=== PATIENT | male | born 1945 | race Caucasian/White ===

== ENCOUNTER 2023-01-31 20:13 | Emergency (ER) | payer OTHER, SELFPAY ==
[2023-01-31] VITALS (30 sets, daily range): BP systolic 110–135; BP diastolic 53–93; PULSE 68–95; RESP 14–30; TEMP 37.1; O2SAT 94–99
--- NOTE | 2023-01-31 20:04 | XR_ITS ---
The [address] [address] Patient Name: CLYDE MARINA MRN: [id number] date: 1945 Sex: M Assigned Patient Location: ER Current Patient Location: ED.MAIN Accession/Order Number: [id number] Exam Date: 01/31/2023 20:28 Report Date: 01/31/2023 20:50 At the request of: YESENIA WHITE Procedure: XR chest 1V EXAMINATION: XR chest 1V HISTORY: Altered mental status COMPARISON: None. TECHNIQUE: Portable chest FINDINGS: The lung parenchyma is free of consolidation or infiltrate. No pneumothorax or pleural effusion. The cardiac, mediastinal and hilar contours are normal. The visualized osseous structures exhibit no gross abnormality. XR/XR chest 1V IMPRESSION: No acute cardiopulmonary abnormality. Electronically authenticated by: MIS PAIZ Date: 01/31/2023 20:50
--- NOTE | 2023-01-31 20:04 | CT_ITS ---
The [address] [address] Patient Name: CLYDE MARINA MRN: [id number] date: 1945 Sex: M Assigned Patient Location: ER Current Patient Location: ER Accession/Order Number: [id number] Exam Date: 01/31/2023 20:28 Report Date: 01/31/2023 20:53 At the request of: YESENIA WHITE Procedure: CT head/brain wo con NONCONTRAST CT SCAN OF THE HEAD HISTORY: 69-year-old male with headache TECHNIQUE: Multiple axial images are taken from the level the vertex down to the base of the skull without the use of IV contrast. Images were then reconstructed in the sagittal and coronal planes. This exam was performed according to our departmental dose-optimization program which includes use of Automated Exposure Control, adjustment of the mA and/or kV according to patient size and/or use of iterative reconstruction technique. COMPARISON: None. FINDINGS: Brain Parenchyma: There is global, diffuse atrophy with periventricular decreased white matter attenuation. No intracranial mass. No intracranial hemorrhage. Posterior fossa: Normal. Midline shift: None Extra-axial fluid collection: None Ventricles: Normal. Mastoid air cells: Normal. Sinuses: Normal. Cranium: No depressed skull fracture. Soft tissues: Normal. Orbits: Normal. CT/CT head/brain wo con IMPRESSION: 1. Chronic small vessel ischemic change. 2. Otherwise, no CT evidence for acute pathology. 3. If patient continues to have symptoms or if there remains any further clinical concern, MRI may help better delineate. Electronically authenticated by: ALVIN CABRAL Date: 01/31/2023 20:53
--- NOTE | 2023-01-31 20:04 | ECG_ITS ---
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
[2023-01-31 20:22] LABS: Basophils Absolute Auto 0.1 10^3/uL (0.0-0.1); Basophils Percent Auto 0.6 % (0.2-2.0); Eosinophils Absolute Auto 0.8 10^3/uL (0.0-0.7); Eosinophils Percent Auto 8.3 % (0.9-7.0); Hematocrit 41.1 % (42.0-54.0); Hemoglobin 13.3 g/dL (14.0-18.0); Immature Granulocytes Abs Auto 0.07 10^3/uL (0.00-0.03); Immature Granulocytes Pct Auto 0.7 % (0.0-0.5); Lymphocytes Absolute Auto 1.4 10^3/uL (1.2-3.8); Lymphocytes Percent Auto 13.8 % (20.5-60.0); Mean Corpuscular HGB Conc 32.4 g/dL (29.9-35.2); Mean Corpuscular Hemoglobin 27.6 pg (25.9-34.0); Mean Corpuscular Volume 85.3 fL (80.0-94.0); Mean Platelet Volume 10.7 fL (9.5-13.5); Monocytes Absolute Auto 0.8 10^3/uL (0.3-0.8); Monocytes Percent Auto 7.6 % (1.7-12.0); Neutrophils Absolute Auto 6.8 10^3/uL (1.4-6.5); Platelet Count 235 10^3/uL (150-450); Red Blood Count 4.82 10^6/uL (4.70-6.10); Red Cell Distribution Width 14.6 % (11.0-15.0); White Blood Count 9.8 10^3/uL (4.0-11.0)
[2023-01-31 20:31] LABS: Anion Gap 15.5; BUN Creatinine Ratio 19.9; Calcium 8.9 mg/dL (8.5-10.1); Carbon Dioxide 28.5 mmol/L (21.0-32.0); Chloride 100 mmol/L (98-107); Estimated GFR (African America >60 (>=60); Estimated GFR (Non-African Ame 51 (>=60); Glucose 150 mg/dL (74-106); Sodium 140 mmol/L (136-145)
--- NOTE | 2023-01-31 20:52 | PC.NURSE ---
Pt arrived on 2 lpm oxygen via nasal cannula. Pt wears this all the time per shelter.
[2023-01-31 21:14] LABS: Bilirubin Urine NEGATIVE (NEGATIVE); Blood Urine NEGATIVE (NEGATIVE); Clarity Urine CLEAR (CLEAR); Color Urine LT. YELLOW (YELLOW); Glucose Urine UA NEGATIVE (NEGATIVE); Ketones Urine NEGATIVE (NEGATIVE); Leukocyte Esterase Urine NEGATIVE (NEGATIVE); Nitrite Urine NEGATIVE (NEGATIVE); Protein Urine NEGATIVE (NEG/TRACE); Urobilinogen Urine 0.2 EU/dL (0.2-1.0); pH Urine 5.5 (5.0-9.0)
[2023-01-31 21:26] LABS: Bacteria Urine NONE SEEN #/HPF (NONE SEEN); Crystals Seen? None Seen #/HPF (None Seen); Mucus Urine NONE SEEN (NONE SEEN); RBC Urine 0-2 #/HPF (0-2); Squamous Epithelial Cell Urine NONE SEEN #/LPF (NONE/RARE); WBC Urine 0-2 #/HPF (NONE SEEN)
[2023-01-31 21:28] LABS: Cast Seen? SEEN #/LPF (NONE SEEN)
--- NOTE | 2023-01-31 21:28 | PC.NURSE ---
[facility] [place] and spoke with Sierra regarding need for evaluation of pt. Face sheet faxed. [facility] to contact in next 30 mins.
[2023-01-31 21:29] LABS: Hyaline Casts Urine RARE
[2023-02-01] VITALS (105 sets, daily range): BP systolic 99–148; BP diastolic 51–85; PULSE 52–90; RESP 7–25; O2SAT 95–97
[2023-02-01 00:49] LABS: SARS-CoV-2 Ag NEGATIVE (NEGATIVE)
[2023-02-01] MEDS: ATORVASTATIN CALCIUM 10 MG TABLET PO (09:04)
[2023-02-01] MEDS: CITALOPRAM HYDROBROMIDE 20 MG TABLET PO (09:04)
[2023-02-01] MEDS: FUROSEMIDE 40 MG TABLET PO (09:04)
[2023-02-01] MEDS: METFORMIN HCL 500 MG TAB.ER.24H 1000 MG PO (09:04)
[2023-02-01] MEDS: ASPIRIN 81 MG TAB.CHEW PO (09:08)
[2023-02-01 14:59] LABS: SARS-CoV-2 NAA NOT DETECTED (NOT DETECTE)
== END 2023-02-01 18:46 ==
PROVIDERS: Emergency Medicine; Emergency Provider Emergency Medicine; PCP Family Medicine
DX: F91.9 Conduct disorder, unspecified (principal); F03.90 Unspecified dementia, unspecified severity, without behavioral disturbance, psychotic disturbance, mood disturbance, and anxiety; Z79.899 Other long term (current) drug therapy; Z79.82 Long term (current) use of aspirin; Z79.84 Long term (current) use of oral hypoglycemic drugs; Z20.822 Contact with and (suspected) exposure to COVID-19
CPT/HCPCS: 36415; 70450; 71045; 80048; 81001; 85025; 87635; 87811; 93005; 99283; U0003

== ENCOUNTER 2023-02-11 | Emergency (ER) | payer OTHER, SELFPAY ==
[2023-02-11 00:02] VITALS: BP 134/47; PULSE 61; RESP 18; TEMP 36.8; O2SAT 93
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
[2023-02-11 00:34] VITALS: O2SAT 94
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
== END 2023-02-11 02:50 ==
LOC: ER 01:20
PROVIDERS: Emergency Provider Emergency Medicine; PCP Family Medicine
DX: F03.911 Unspecified dementia, unspecified severity, with agitation (principal); Z79.82 Long term (current) use of aspirin; Z79.899 Other long term (current) drug therapy; Z79.84 Long term (current) use of oral hypoglycemic drugs
CPT/HCPCS: 99285

== ENCOUNTER 2023-05-20 08:00 | Outpatient (REF) | payer OTHER, SELFPAY ==
[2023-05-21 09:40] LABS: Bilirubin Urine NEGATIVE (NEGATIVE); Blood Urine NEGATIVE (NEGATIVE); Clarity Urine CLEAR (CLEAR); Color Urine LT. YELLOW (YELLOW); Glucose Urine UA NEGATIVE (NEGATIVE); Ketones Urine NEGATIVE (NEGATIVE); Leukocyte Esterase Urine NEGATIVE (NEGATIVE); Nitrite Urine NEGATIVE (NEGATIVE); Protein Urine NEGATIVE (NEG/TRACE); Specific Gravity Urine 1.015 (1.005-1.025); Urine Microscopic Indicated NO; Urobilinogen Urine 0.2 EU/dL (0.2-1.0); pH Urine 5.5 (5.0-9.0)
== END 2023-05-20 08:01 | disposition home or self-care (01) ==
LOC: LAB 08:00
PROVIDERS: PCP Family Medicine; Visit Provider Family Medicine
DX: R45.1 Restlessness and agitation (principal)
CPT/HCPCS: 81003

== ENCOUNTER 2023-05-21 00:47 | Outpatient (REF) | payer OTHER, SELFPAY ==
[2023-05-21 08:41] LABS: Basophils Absolute Auto 0.1 10^3/uL (0.0-0.1); Basophils Percent Auto 0.6 % (0.2-2.0); Eosinophils Absolute Auto 0.6 10^3/uL (0.0-0.7); Hemoglobin 12.3 g/dL (14.0-18.0); Immature Granulocytes Abs Auto 0.07 10^3/uL (0.00-0.03); Immature Granulocytes Pct Auto 0.8 % (0.0-0.5); Lymphocytes Absolute Auto 1.5 10^3/uL (1.2-3.8); Lymphocytes Percent Auto 16.5 % (20.5-60.0); Mean Corpuscular HGB Conc 31.5 g/dL (29.9-35.2); Mean Corpuscular Hemoglobin 28.3 pg (25.9-34.0); Mean Corpuscular Volume 89.9 fL (80.0-94.0); Mean Platelet Volume 11.8 fL (9.5-13.5); Monocytes Absolute Auto 0.8 10^3/uL (0.3-0.8); Monocytes Percent Auto 9.2 % (1.7-12.0); Neutrophils Absolute Auto 5.9 10^3/uL (1.4-6.5); Neutrophils Percent Auto 65.9 % (43.0-75.0); Platelet Count 235 10^3/uL (150-450); Red Blood Count 4.34 10^6/uL (4.70-6.10); Red Cell Distribution Width 14.2 % (11.0-15.0); White Blood Count 8.9 10^3/uL (4.0-11.0)
[2023-05-21 10:48] LABS: Alanine Aminotransferase 17 U/L (16-63); Albumin Globulin Ratio 0.7; Albumin Level 2.9 g/dL (3.4-5.0); Alkaline Phosphatase 50 U/L (46-116); Anion Gap 9.5; Aspartate Amino Transferase 19 U/L (15-37); BUN Creatinine Ratio 32.7; Bilirubin Total 0.4 mg/dL (0.2-1.0); Calcium 9.5 mg/dL (8.5-10.1); Carbon Dioxide 34.6 mmol/L (21.0-32.0); Chloride 103 mmol/L (98-107); Estimated GFR (African America >60 (>=60); Estimated GFR (Non-African Ame >60 (>=60); Globulin 4.2 g/dL; Glucose 137 mg/dL (74-106); Potassium 4.1 mmol/L (3.5-5.1); Sodium 143 mmol/L (136-145); Total Protein 7.1 g/dL (6.4-8.2)
== END 2023-05-21 00:48 | disposition home or self-care (01) ==
LOC: LAB 00:47
PROVIDERS: PCP Family Medicine; Visit Provider Family Medicine
DX: R45.1 Restlessness and agitation (principal)
CPT/HCPCS: 36415; 80053; 85025

== ENCOUNTER 2023-06-28 02:01 | Outpatient (REF) | payer OTHER, SELFPAY ==
--- OUTSIDE RECORDS SUMMARY | 2023-06-28 02:05 | XMS_ITS | CCD ---
Author Name Unknown Address [address] [facility] [address] [place] [address] Organization [facility] Care Team Providers Care Assisted Living Associate Name Role Phone Unavailable Primary Care Provider Unavailabl e PROVIDER, UNKNOWN Attending Unavailable PROVIDER, UNKNOWN Admitting Unavailable PROVIDER, UNKNOWN Attending Unavailable PROVIDER, UNKNOWN Admitting Unavailable Bienvenido Barroso Primary Care Physician [phone] Andrew Rodriguez Unavailable Unavailable Luis Gil Unavailable Unavailable Donta NOONAN Admitting Unavailable Donta NOONAN Attending Unavailable DO Radha Grace Attending Unavaila Donta Barrett Attending Unavailable Donta NOONAN Attending Unavailable Donta NOONAN Attending Unavailable Bienvenido Barroso Admitting Unavailable Bienvenido Barroso Attending Unavailable New Johnson Admitting Unavailable New Johnson Attending Unavailable Maycol CAGLE Admitting Unavailable Jiménez, Nair Consulting Unavailable Lizeth Cedeno Attending Unavailable Jiménez, Nair Consulting Unavailable Jiménez, Nair Consulting Unavailable Jiménez, Nair Consulting Unavailable Jiménez, Nair Consulting Unavailable Jiménez, Nair Consulting Unavailable Jiménez, Nair Consulting Unavailable Jiménez, Nair Consulting Unavailable Jiménez, Nair Consulting Unavailable Jiménez, Nair Consulting Unavailable Maycol CAGLE Admitting Unavailable Maycol CAGLE Attending Unavailable Ganesh Minaya Admitting Unavailable Ganesh Minaya Attending Unavailable Robin Bryant Attending Unavailab Robin Granger Admitting Unavailab le NON STAFF Primary Care Unavailable Medications Current Medications Medication Drug Class(es) Dates Sig (Normalized) Sig (Original) acetaminophen 325 mg oral tablet (8 sources) Start: 06-16-2014 take 2 tablets by mouth every six hours as needed for pain acetaminophen 325 mg Tab 650 mg = 2 tab(s), Oral, q6hr, PRN Pain, Refills(s) 0 Start Date: 06/16/14 Status: Ordered [id number] 200 actuat albuterol 0.09 mg/actuat metered dose inhaler (4 sources) beta2-Adrenergic Agonist Start: 04-27-2021 take 2 puff(s) by inhalation four times daily for wheezing Pro-Air HFA CFC free 90 mcg/inh MDI 2 puff(s), Inhalation, QID for wheezing, 8.5 gram, Refill(s) 0, [facility] [address], 167.6, cm, 04/24/21 18:14:00 EST, Height/Length Dosing, 106.9, kg, 04/24/21 13:15:00 EST, Weight Dosing Start Date: 04/27/21 Status: Ordered ALPRAZolam 0.5 mg oral tablet (1 source) Benzodiazepine Start: 12-20-2022 take 1 tablet by mouth once daily as needed for anxiety, then take 1 tablet by mouth once daily as needed for anxiety alprazolam 0.5 mg Tab 0.5 mg = 1 tab(s), Oral, Daily, PRN for anxiety, one nightly for 10 days , F41.9, # 10 tab(s), Refills(s) 0 Start Date: 12/20/22 Status: Ordered amoxicillin 875 mg / clavulanate 125 mg oral tablet (2 sources) Penicillin-class Antibacterial Start: 12-20-2022 End: 12-27-2022 take 1 tablet by mouth every twelve hours Augmentin 875 mg oral tablet = 1 tab(s), Oral, q12hr, X 7 day(s), # 14 tab(s), Refills(s) 0 Start Date: 12/20/22 Stop Date: 12/27/22 Status: Ordered aspirin 81 mg delayed release oral tablet (8 sources) Platelet Aggregation Inhibitor, Nonsteroidal Anti-inflammatory Drug Start: 12-02-2022 take 1 tablet by mouth once daily aspirin 81 mg Oral EC Tab 81 mg = 1 tab(s), Oral, Daily, # 30 tab(s), Refills(s) 0, Pharmacy: [facility] [address], 167, cm, 11/28/22 17:20:00 EDT, Height/Length Dosing, 99.8, kg, 11/28/22 17:20:00 EDT, Weight Dosing Start Date: 12/02/22 Status: Ordered Start: 06-13-2013 take 325 mg by mouth once abram y aspirin 325 mg, Oral, Daily, Refills(s) 0, Prophylaxis Start Date: 06/13/13 Status: Ordered cetirizine hydrochloride 10 mg oral capsule (3 sources) Histamine-1 Receptor Antagonist Start: 12-29-2022 take 1 capsule by mouth once daily as needed cetirizine 10 mg oral capsule 10 mg = 1 cap(s), Oral, Daily, PRN for allergy symptoms, # 40 cap(s), Refills(s) 0 Start Date: 12/29/22 Status: Ordered cholecalciferol 0.05 mg oral tablet (6 sources) Vitamin D Start: 01-15-2023 take 1 tablet by mouth once daily cholecalciferol 2000 intl units oral tablet (Vitamin D3) 50 mcg = 1 tab(s), Oral, Daily, # 90 tab(s), Refills(s) 4, Pharmacy: [facility], 160, cm, 12/18/22 0:04:00 EDT, Height/Length Dosing, 94, kg, 12/18/22 0:04:00 EDT, Weight Dosing Start Date: 01/15/23 Status: Ordered Start: 12-03-2022 take 1 tablet by ruperto th once daily cholecalciferol 2000 intl units oral tablet (Vitamin D3) 50 mcg = 1 tab(s), Oral, Daily, Refills(s) 0 Start Date: 12/03/22 Status: Ordered citalopram 20 mg oral tablet (4 sources) Serotonin Reuptake Inhibitor Start: 01-15-2023 take 1 tablet by mouth once daily citalopram 20 mg Tab 20 mg = 1 tab(s), Oral, Daily, # 90 tab(s), Refills(s) 4, Pharmacy: [facility], 160, cm, 12/18/22 0:04:00 EDT, Height/Length Dosing, 94, kg, 12/18/22 0:04:00 EDT, Weight Dosing Start Date: 01/15/23 Status: Ordered Start: 12-22-2022 take 1 tablet by ruperto th once daily citalopram 20 mg Tab 20 mg = 1 tab(s), Oral, Daily, Refills(s) 0 Start Date: 12/22/22 Status: Ordered furosemide 40 mg oral tablet (8 sources) Loop Diuretic Start: 01-15-2023 take 1 tablet by mouth once daily furosemide 40 mg Tab 40 mg = 1 tab(s), Oral, Daily, # 90 tab(s), Refills(s) 1, Pharmacy: [facility], 160, cm, 12/18/22 0:04:00 EDT, Height/Length Dosing, 94, kg, 12/18/22 0:04:00 EDT, Weight Dosing Start Date: 01/15/23 Status: Ordered Start: 12-02-2022 take 1 tablet by ruperto once daily furosemide 40 mg Tab 40 mg = 1 tab(s), Oral, Daily, # 30 tab(s), Refills(s) 0, Pharmacy: [facility] [address], 167, cm, 11/28/22 17:20:00 EDT, Height/Length Dosing, 99.8, kg, 11/28/22 17:20:00 EDT, Weight Dosing Start Date: 12/02/22 Status: Ordered Start: 06-13-2013 take 1 tablet by ruperto once daily furosemide 40 mg Tab 40 mg = 1 tab(s), Oral, Daily, Refills(s) 0, diuretic/water pill Start Date: 06/13/13 Status: Ordered glimepiride 1 mg oral tablet (7 sources) Sulfonylurea Start: 09-28-2022 take 1 tablet by mouth once daily at mealtime glimepiride 1 mg Tab 1 mg = 1 tab(s), Oral, Daily, with the first meal of the day, # 30 tab(s), Refills(s) 0, Pharmacy: [facility] [address], 167, cm, 09/26/22 10:09:00 EDT, Height/Length Dosing, 100.4, kg, 09/26/22 10:09:00 EDT, Weight Dosing Start Date: 09/28/22 Status: Ordered 12 hr guaiFENesin 600 mg extended release oral tablet (2 sources) Start: 12-20-2022 End: 08-04-2023 take 2 tablets by mouth twice daily Mucinex 600 mg Tab-ER 1,200 mg = 2 tab(s), Oral, BID, X 3 day(s), Refills(s) 0 Start Date: 12/20/22 Stop Date: 12/25/22 Status: Ordered lovastatin 40 mg oral tablet (8 sources) HMG-CoA Reductase Inhibitor Start: 04-30-2013 take 1 tablet by mouth once daily at bedtime lovastatin 40 mg Tab 40 mg = 1 tab(s), Oral, Once a day (at bedtime), # 30 tab(s), Refills(s) 0, High cholesterol Start Date: 04/30/13 Status: Ordered metFORMIN hydrochloride 1000 mg oral tablet (8 sources) Biguanide Start: 04-30-2013 take 1 tablet by mouth twice daily metformin 1000 mg Tab 1,000 mg = 1 tab(s), Oral, BID, # 60 tab(s), Refills(s) 0, Blood glucose Start Date: 04/30/13 Status: Ordered Start: 04-30-2013 take 0.5 tablet by m outh twice daily metformin 1000 mg Tab 0.5 tab, Oral, BID, # 60 tab(s), Refills(s) 0, Blood glucose Start Date: 04/30/13 Status: Ordered 24 hr metoprolol succinate 50 mg extended release oral tablet (1 source) beta-Adrenergic Varsha Start: 06-13-2013 take 1 tablet by mouth once daily metoprolol 50 mg ER Tab 50 mg = 1 tab(s), Oral, Daily, Refills(s) 0, High blood pressure Start Date: 06/13/13 Status: Ordered QUEtiapine 25 mg oral tablet (8 sources) Atypical Antipsychotic Start: 01-15-2023 quetiap ine 25 mg Tab See Instructions, 25 mg qAM- 75 mg q1600 - 75mg qHS, # 210 tab(s), Refills(s) 1, Pharmacy: [facility] [address], 160, cm, 12/18/22 0:04:00 EDT, Height/Length Dosing, 94, kg, 12/18/22 0:04:00 EDT, Weight Dosing Start Date: 01/15/23 Status: Ordered Start: 12-14-2022 quetiapine 25 mg Tab See Instructions, 25 mg qAM- 75 mg q1600 - 75mg qHS, Refills(s) 0 Start Date: 12/14/22 Status: Ordered Start: 12-02-2022 take 1 tablet by ruperto th at bedtime quetiapine 50 mg oral tablet 50 mg = 1 tab(s), Oral, Bedtime, # 30 tab(s), Refills(s) 0, Pharmacy: [facility] [address], 167, cm, 11/28/22 17:20:00 EDT, Height/Length Dosing, 99.8, kg, 11/28/22 17:20:00 EDT, Weight Dosing Start Date: 12/02/22 Status: Ordered Start: 05-31-2021 take 1 tablet by ruperto th once daily quetiapine 50 mg oral tablet 50 mg = 1 tab(s), Oral, Daily, # 30 tab(s), Refills(s) 0 Start Date: 05/31/21 Status: Ordered spironolactone 25 mg oral tablet (8 sources) Aldosterone Antagonist Start: 01-15-2023 take 1 tablet by mouth once daily spironolactone 25 mg Tab 25 mg = 1 tab(s), Oral, Daily, # 90 tab(s), Refills(s) 1, Pharmacy: [facility], 160, cm, 12/18/22 0:04:00 EDT, Height/Length Dosing, 94, kg, 12/18/22 0:04:00 EDT, Weight Dosing Start Date: 01/15/23 Status: Ordered Start: 06-16-2014 take 1 tablet by ruperto th once daily spironolactone 50 mg Tab 50 mg = 1 tab(s), Oral, Daily, Refills(s) 0, Edema Start Date: 06/16/14 Status: Ordered Completed/Discontinued Medications Medication Drug Class(es) Dates Sig (Normalized) Sig (Original) ergocalciferol 1.25 mg oral capsule (3 sources) Provitamin D2 Compound Start: 12-02-2022 End: 01-28-2023 ergocalciferol 50,000 intl units Cap 50,000 International_Unit = 1 cap(s), Oral, q7day, X 8 week(s), # 8 cap(s), Refills(s) 0, Pharmacy: [facility], 167, cm, 11/28/22 17:20:00 EDT, Height/Length Dosing, 99.8, kg, 11/28/22 17:20:00 EDT, Weight Dosing Start Date: 12/02/22 Stop Date: 01/28/23 Status: Ordered Insulin Lispro (3 sources) Insulin Analog Start: 12-19-2022 End: 12-19-2022 Insulin Lispro Sliding Scale 0-10 Units, Injection-Insulin, SubCutaneous, Start date 12/19/22 16:30:00 EDT Start Date: 12/19/22 Stop Date: 12/19/22 Status: Completed Start: 12-19-2022 End: 12-19-2022 Insulin Lispro Sliding Scale 0-10 Units, Injection-Insulin, SubCutaneous, Start date 12/19/22 11:30:00 EDT Start Date: 12/19/22 Stop Date: 12/19/22 Status: Completed Start: 12-19-2022 End: 12-19-2022 Insulin Lispro Sliding Scale 0-10 Units, Injection-Insulin, SubCutaneous, Start date 12/19/22 7:30:00 EDT Start Date: 12/19/22 Stop Date: 12/19/22 Status: Completed tamsulosin hydrochloride 0.4 mg oral capsule (9 sources) alpha-Adrenergic Varsha Start: 01-24-2023 End: 01-24-2023 tamsulosin 0.4 mg Cap 0.4 mg = 1 cap(s), Cap, Oral, Start date 01/24/23 9:00:00 EDT, 01/21/23 20:27:00 EDT Start Date: 01/24/23 Stop Date: 01/24/23 Status: Completed Start: 06-16-2014 take 1 capsule by [facility] twice daily tamsulosin 0.4 mg Cap 0.4 mg = 1 cap(s), Oral, BID, Refills(s) 0, Urinary discomfort Start Date: 06/16/14 Status: Ordered Problems Active Problems Problem Classification Problem Date Documented Da te Episodic/Chronic Abdominal pain (1 source) Abdominal pain; Translations: [Unspecified abdominal pain] Onset: 11-28-2022 Episodic Acute and unspecified renal failure (1 source) Acute renal failure syndrome; Translations: [Acute kidney failure, unspecified] Onset: 12-18-2022 Episodic Acute myocardial infarction (8 sources) Myocardial infarction 03-29-2016 Chronic Anxiety disorders (5 sources) Anxiety 12-11-2022 Chronic Cardiac dysrhythmias (1 source) Sinus bradycardia; Translations: [Bradycardia, unspecified] Onset: 11-29-2022 Episodic Chronic kidney disease (1 source) Chronic kidney disease; Translations: [Chronic kidney disease, unspecified] Onset: 12-18-2022 Chronic Chronic obstructive pulmonary disease and bronchiectasis (13 sources) Chronic obstructive lung disease; Translations: [Acute exacerbation of chronic obstructive airways disease] Onset: 11-29-2022 04-30-2013 Chronic Congestive heart failure; nonhypertensive (10 sources) Congestive heart failure; Translations: [Acute on chronic diastolic heart failure] Onset: 11-29-2022 04-30-2013 Chronic Coronary atherosclerosis and other heart disease (12 sources) Coronary atherosclerosis; Translations: [Atherosclerotic heart disease of huslia coronary artery without angina pectoris] Onset: 11-29-2022 Chronic Deficiency and other anemia (1 source) Anemia; Translations: [Anemia, unspecified] Onset: 11-29-2022 Episodic Delirium, dementia, and amnestic and other cognitive disorders (20 sources) Dementia; Translations: [Unspecified dementia without behavioral disturbance] Onset: 11-29-2022 Chronic Diabetes mellitus without complication (14 sources) Diabetes mellitus; Translations: [Type 2 diabetes mellitus without complication] Onset: 11-29-2022 04-30-2013 Chronic Disorders of lipid metabolism (2 sources) Hyperlipidemia; Translations: [Hyperlipidemia, unspecified] Onset: 11-29-2022 Chronic Diverticulosis and diverticulitis (8 sources) Diverticulitis 08-04-2013 Chronic E Codes: Fall (2 sources) Fall; Translations: [Unspecified fall, initial encounter] Onset: 12-18-2022 Episodic Essential hypertension (10 sources) Essential hypertension; Translations: [Essential (primary) hypertension] Onset: 11-29-2022 Chronic Hyperplasia of prostate (10 sources) Benign prostatic hypertrophy without outflow obstruction; Translations: [Benign prostatic hyperplasia without lower urinary tract symptoms] Onset: 11-29-2022 Chronic Intestinal obstruction without hernia (8 sources) Intestinal obstruction 08-04-2013 Episodic Malaise and fatigue (9 sources) Asthenia; Translations: [Weakness] Onset: 11-28-2022 Episodic Nutritional deficiencies (10 sources) Vitamin D deficiency; Translations: [Vitamin D deficiency, unspecified] Onset: 12-02-2022 12-02-2022 Chronic Other connective tissue disease (6 sources) Recurrent falls ; Translations: [Repeated falls] Onset: 12-22-2022 Episodic Other diseases of kidney and ureters (7 sources) Urinary tract obstruction; Translations: [Other obstructive and reflux uropathy] Onset: 12-02-2022 Episodic Other endocrine disorders (1 source) Hypoglycemia, unspecified; Translations: [Hypoglycemia, unspecified] Onset: 09-26-2022 Chronic Other gastrointestinal disorders (8 sources) Constipation 04-30-2013 Episodic Other liver diseases (1 source) Enzyme level - finding; Translations: [Abnormal levels of other serum enzymes] Onset: 11-29-2022 Episodic Other nervous system disorders (1 source) Disorder of brain 06-02-2021 Chronic Other nutritional; endocrine; and metabolic disorders (7 sources) Body mass index 30+ - obesity 12-02-2022 Chronic Other nutritional; endocrine; and metabolic disorders (8 sources) Morbid obesity; Translations: [Morbid (severe) obesity due to excess calories] Onset: 12-02-2022 12-02-2022 Chronic Other nutritional; endocrine; and metabolic disorders (1 source) Obese class II; Translations: [Body mass index (BMI) 35.0-35.9, adult] Onset: 12-02-2022 Chronic Other nutritional; endocrine; and metabolic disorders (1 source) Obesity; Translations: [Obesity, unspecified] Onset: 12-18-2022 Chronic Pulmonary heart disease (12 sources) Pulmonary hypertension; Translations: [Pulmonary hypertension, unspecified] Onset: 11-29-2022 Chronic Comment on above: RVSP 35 mm Hg Echo Residual codes; unclassified (1 source) Sleep apnea 03-29-2016 Chronic Residual codes; unclassified (12 sources) Obstructive sleep apnea syndrome; Translations: [Obstructive sleep apnea (adult) (pediatric)] Onset: 11-29-2022 Chronic Residual codes; unclassified (1 source) Disorientation, unspecified; Translations: [Disorientation, unspecified] Onset: 09-26-2022 Episodic Residual codes; unclassified (2 sources) Procedure carried out on subject; Translations: [Encounter for prophylactic measures, unspecified] Onset: 11-29-2022 Episodic Residual codes; unclassified (1 source) Disorientated; Translations: [Disorientation, unspecified] Onset: 12-03-2022 Episodic Residual codes; unclassified (6 sources) Delirium 12-03-2022 Episodic Urinary tract infections (1 source) Urinary tract infectious disease 06-02-2021 Episodic Past or Other Problems Problem Classification Problem Date Documented Da te Episodic/Chronic Pneumonia (except that caused by tuberculosis or sexually transmitted disease) (7 sources) Pneumonia; Translations: [Pneumonia, unspecified organism] Onset: 12-18-2022 Episodic Respiratory failure; insufficiency; arrest (adult) (3 sources) Acute respiratory failure; Translations: [Acute respiratory failure with hypoxia] Onset: 11-29-2022 Episodic Results Test Name Value Interpretation Reference Range Facility Insurance Correspondenceon 1 05-25-2022 Insurance Correspondence [id number]# 1.00TIFF [facility] Coding Queryon 02-17-2023 Coding Query [facility] Discharge Instructionson Discharge Instructions [id number]# 1.00CD:127 [facility] Transfer Documentson 023 Transfer Documents [id number]# 1.00CD:127 [facility] Discharge Note-Nursingon Discharge Note-Nursing Normal [facility] Interdisciplinary Note - Santosh e Manageron 01-23-2023 Interdisciplinary Note - Software Engineer Kernel [facility] Comment on above: Result Comment: Elec tronically Signed By: Norma Garcia RN\.br\Date and Time Signed: 01/23/23 16:29 EDT Progress Note-Physicianon Progress Note-Physician Normal [facility] Comment on above: Result Comment: Elec tronically Signed By: New Johnson DO\.br\Date and Time Signed: 01/23/23 09:50 EDT Auto Diffon 01-22-2023 Basophils/100 WBC (Bld) 0.7 % Normal 0.0-2.0 [facility] Comment on above: Order Comment: Order Added by Discern Expert. Performed By: #### 2 [id number], [id number], [id number], [id number] ####[address] [address] Basophils/Leukocytes Auto (Bld) [Pure # fraction] 0.1 E9/L Normal 0.0-0.2 [facility] Comment on above: Order Comment: Order Added by Discern Expert. Performed By: #### 2 [id number], [id number], [id number], [id number] ####[address] [address] Eosinophils/100 WBC (Bld) 9.3 % High 0.0-8.0 [facility] Comment on above: Order Comment: Order Added by Bethany Expert. Performed By: #### 2 979713, [id number], 2521837, 7996350 ####[address] [address] Eosinophils/Leukocytes Auto (Bld) [Pure # fraction] 0.8 E9/L High 0.0-0.5 [facility] Comment on above: Order Comment: Order Added by Bethany Expert. Performed By: #### 2 194434, [id number], [id number], [id number] ####[address] [address] Lymphocytes/100 WBC (Bld) 17.2 % Normal 14.0-50.0 [facility] Comment on above: Order Comment: Order Added by Bethany Expert. Performed By: #### 2 031466, [id number], 7251174, [id number] ####[address] [address] Lymphocytes/Leukocytes Auto (Bld) [Pure # fraction] 1.4 E9/L Normal 1.0-4.0 [facility] Comment on above: Order Comment: Order Added by Bethany Expert. Performed By: #### 2 127173, [id number], 3331148, 3511530 ####[address] [address] Monocytes/100 WBC (Bld) 10.0 % Normal 4.0-14.0 [facility] Comment on above: Order Comment: Order Added by Discern Expert. Performed By: #### 2 324449, [id number], 1684875, 1946966 ####[address] [address] Monocytes/Leukocytes Auto (Bld) [Pure # fraction] 0.8 E9/L Normal 0.2-1.0 [facility] Comment on above: Order Comment: Order Added by Discern Expert. Performed By: #### 2 496601, [id number], 8399107, 0868638 ####[address] [address] Neutrophils/100 WBC (Bld) 62.8 % Normal 36.0-75.0 [facility] Comment on above: Order Comment: Order Added by Discern Expert. Performed By: #### 2 065993, [id number], 3976224, 3764236 ####[address] [address] Neutrophils/Leukocytes Auto (Bld) [Pure # fraction] 5.2 E9/L Normal 2.0-7.5 [facility] Comment on above: Order Comment: Order Added by Discern Expert. Performed By: #### 2 565614, 16730906, 4106180, 8397262 ####[address] [address] CBC w/ Auto Diffon 3 Erythrocyte distribution width (RBC) [Ratio] 15.2 % High 10.9-14.2 [facility] Comment on above: Performed By: #### 2 525057, [id number], 2641616, 5760505 ####[address] [address] Hematocrit (Bld) [Volume fraction] 43.1 % Normal 37.7-49.0 [facility] Comment on above: Performed By: #### 2 721836, 17639451, 5353519, 0597726 ####[facility] [address] [place] [address] Hemoglobin (Bld) [Mass/Vol] 14.6 g/dL Normal 13.5-17.5 [facility] Comment on above: Performed By: #### 2 002675, 48822911, 7708664, 5331426 ####[facility] [address] [place] [address] MCH (RBC) [Entitic mass] 28.1 pg Normal 27.0-34.0 [facility] Comment on above: Performed By: #### 2 474067, 37683822, 2006401, 9899019 ####[address] [address] MCHC (RBC) [Mass/Vol] 33.8 g/dL Normal 31.4-36.0 [facility] Comment on above: Performed By: #### 2 217673, 39003798, 3127201, 9005075 ####[facility] [address] [place] [address] MCV (RBC) [Entitic vol] 83.2 fL Normal 80.0-100.0 [facility] Comment on above: Performed By: #### 2 453376, 81628996, 1131925, 3233709 ####[address] [address] Platelet mean volume (Bld) [Entitic vol] 8.6 fL Normal 6.4-10.8 [facility] Comment on above: Performed By: #### 2 157898, 91736065, 8730553, 0180518 ####[address] [address] Platelets (Bld) [#/Vol] 221.0 E9/L Normal 150.0-500.0 [facility] Comment on above: Performed By: #### 2 866608, 35151870, 3533762, 5483692 ####[address] [address] RBC (Bld) [#/Vol] 5.2 E12/L Normal 4.3-5.9 [facility] Comment on above: Performed By: #### 2 113809, 77427752, 7652923, 6989934 ####[facility] [address] [place] [address] WBC corrected for nucl RBC Auto (Bld) [#/Vol] 8.3 E9/L Normal 4.0-11.0 [facility] Comment on above: Performed By: #### 2 185579, 53699298, 1714939, 3039944 ####[facility] [address] [place] [address] CHEMISTRYOrdered By: Lab ROP User on 01-22-2023 Glucose [Mass/Vol] 121 mg/dL High 55 - 99 mg/dL [facility] POC Subsection Comment on above: Result Comment: Gareth guerrero RN/ POC Device SN [id number] Invalid Interpretation Code [facility] POC Subsection POC User ID [id number] Invalid Interpretation Code [facility] POC Subsection POC Username LATONIA MALHOTRA Invalid Interpretation Code [facility] POC Subsection CHEMISTRYOrdered By: SYSTEM SYSTEM on 01-22-2023 Albumin [Mass/Vol] 3.7 g/dL Normal 3.3 - 5.0 gm/dL [facility] Albumin/Globulin [Mass ratio] 1.0 {ratio} Low 1.1 - 2.2 [facility] Remisol ALP [Catalytic activity/Vol] 47 [iU]/d Normal 21 - 98 Int._Unit/L [facility] Remisol ALT No additional P-5'-P [Catalytic activity/Vol] 21 [iU]/d Normal 6 - 46 Int._Unit/L [facility] Remisol Anion gap [Moles/Vol] 15 mmol/L Normal 6 - 16 mEq/L [facility] Remisol AST [Catalytic activity/Vol] 21 [iU]/d Normal 5 - 43 Int._Unit/L [facility] Remisol Bilirubin [Mass/Vol] 0.8 mg/dL Normal 0.0 - 1 .1 mg/dL [facility] Remisol Calcium [Mass/Vol] 9.6 mg/dL Normal 8.9 - 11. 1 mg/dL [facility] Chloride [Moles/Vol] 97 mmol/L Low 101 - 1 11 mmol/L [facility] CO2 [Moles/Vol] 30 mmol/L Normal 21 - 31 mmol/L [facility] Creatinine [Mass/Vol] 1.3 mg/dL Normal 0.5 - 1.3 mg/dL [facility] GFR/1.73 sq M.predicted among non-blacks MDRD (S/P/Bld) [Vol rate/Area] 56 mL/min/1.73 m2 Low >=59mL/min/ 1.73 m2 [facility] Chem S Globulin (S) [Mass/Vol] 3.6 g/dL Normal 1.4 - 4.0 gm/dL [facility] Glucose [Mass/Vol] 124 mg/dL Normal 55 - 199 mg/dL [facility] Potassium [Moles/Vol] 4.0 mmol/L Normal 3.5 - 5.3 mmol/L [facility] Protein [Mass/Vol] 7.3 g/dL Normal 6.0 - 7.8 gm/dL [facility] Sodium [Moles/Vol] 138 mmol/L Normal 135 - 145 mmol/L [facility] Urea nitrogen [Mass/Vol] 42 mg/dL High 5 - 21 mg/dL [facility] Urea nitrogen/Creatinine [Mass ratio] 32 mg/mg High 10 - 20 [facility] Remisol CMPon 01-22-2023 Albumin [Mass/Vol] 3.7 g/dL Normal 3.3-5.0 [facility] Comment on above: Performed By: #### 2 [id number], [id number], 9501935, [id number] ####[facility] [address] [place] [address] Albumin/Globulin (S) [Mass conc ratio] 1.0 Low 1.1-2.2 [facility] [facility] Comment on above: Performed By: #### 2 040208, 24098805, 1901083, 4515447 ####[facility] [address] [place] [address] ALP [Catalytic activity/Vol] 47 Int._Unit/L Normal 21-98 [facility] Comment on above: Performed By: #### 2 785638, 69566734, 7547763, 7518975 ####[facility] [address] [place] [address] ALT No additional P-5'-P [Catalytic activity/Vol] 21 Int._Unit/L Normal 6-46 [facility] Comment on above: Performed By: #### 2 098119, 80368755, 5538129, 6494638 ####[facility] [address] [place] [address] Anion gap [Moles/Vol] 15 mmol/L Normal 6-16 [facility] Comment on above: Performed By: #### 2 906492, 87218574, 2296303, 5364067 ####[facility] [address] [place] [address] AST [Catalytic activity/Vol] 21 Int._Unit/L Normal 5-43 [facility] Comment on above: Performed By: #### 2 972373, 05491492, 2534173, 5326618 ####[facility] [address] [place] [address] Bilirubin [Mass/Vol] 0.8 mg/dL Normal 0.0-1.1 [facility] Comment on above: Performed By: #### 2 454815, 62642210, 3126492, 5090323 ####[facility] [address] [place] [facility] [place] [address] Calcium [Mass/Vol] 9.6 mg/dL Normal 8.9-11.1 [facility] Comment on above: Performed By: #### 2 965531, 66639222, 1570994, 7535456 ####[facility] [address] [place] [address] Chloride [Moles/Vol] 97 mmol/L Low 101-111 [facility] Comment on above: Performed By: #### 2 890846, 09331866, 3162041, 8092190 ####[facility] [address] [place] [address] CO2 [Moles/Vol] 30 mmol/L Normal 21-31 [facility] Comment on above: Performed By: #### 2 008022, 07629280, 6538563, 8310074 ####[facility] [address] [place] [address] Creatinine [Mass/Vol] 1.3 mg/dL Normal 0.5-1.3 [facility] Comment on above: Performed By: #### 2 270324, 56050350, 6661542, 6705984 ####[facility] [address] [place] [address] Globulin (S) [Mass/Vol] 3.6 g/dL Normal 1.4-4.0 [facility] Comment on above: Performed By: #### 2 700791, 88689291, 7135343, 2954557 ####[facility] [address] [place] [address] Glucose [Mass/Vol] 124 mg/dL Normal 55-199 [facility] Comment on above: Result Comment: If t his glucose result represents a fasting glucose, interpretation should refer to the following reference range: 55-99 mg/dL Performed By: #### 2 001000, 10127176, 4767004, 3548965 ####[facility] [address] [place] [address] Potassium [Moles/Vol] 4.0 mmol/L Normal 3.5-5.3 [facility] Comment on above: Performed By: #### 2 550472, 73874285, 2582908, 6713736 ####[facility] [address] [place] [address] Protein [Mass/Vol] 7.3 g/dL Normal 6.0-7.8 [facility] Comment on above: Performed By: #### 2 997219, 41146506, 5510575, 3289154 ####[facility] [address] [place] [address] Sodium [Moles/Vol] 138 mmol/L Normal 135-145 [facility] Comment on above: Performed By: #### 2 079864, 14402141, 6780030, 9970459 ####[facility] [address] [place] [address] Urea nitrogen [Mass/Vol] 42 mg/dL High 5-21 [facility] Comment on above: Performed By: #### 2 493802, 94433167, 4596783, 2714558 ####[facility] [address] [place] [address] Urea nitrogen/Creatinine [Mass ratio] 32 No Units High 10-20 [facility] Comment on above: Performed By: #### 2 118469, 01367490, 6404177, 7138546 ####[facility] [address] [place] [address] Capillary Glucose POCon Glucose [Mass/Vol] 121 mg/dL High 55-99 [facility] Comment on above: Result Comment: Gareth guerrero RN/ Performed By: #### 2 [id number] ####[facility] [address] [place] [address] Coding Queryon 01-22-2023 Coding Query Normal [facility] HEMATOLOGYOrdered By: SYSTEM SYSTEM on 01-22-2023 Basophils/100 WBC (Bld) 0.7 % Normal 0.0 - 2.0 % [facility] HemeAutoSS Basophils/Leukocytes Auto (Bld) [Pure # fraction] 0.1 E9/L Normal 0.0 - 0.2 E9/L [facility] HemeAutoSS Eosinophils/100 WBC (Bld) 9.3 % High 0.0 - 8.0 % [facility] HemeAutoSS Eosinophils/Leukocytes Auto (Bld) [Pure # fraction] 0.8 E9/L High 0.0 - 0.5 E9/L [facility] HemeAutoSS Lymphocytes/100 WBC (Bld) 17.2 % Normal 14.0 - 50.0 % [facility] HemeAutoSS Lymphocytes/Leukocytes Auto (Bld) [Pure # fraction] 1.4 E9/L Normal 1.0 - 4.0 E9/L [facility] HemeAutoSS Monocytes/100 WBC (Bld) 10.0 % Normal 4.0 - 14.0 % [facility] HemeAutoSS Monocytes/Leukocytes Auto (Bld) [Pure # fraction] 0.8 E9/L Normal 0.2 - 1.0 E9/L [facility]eAutoSS Neutrophils/100 WBC (Bld) 62.8 % Normal 36.0 - 75.0 % [facility] HemeAutoSS Neutrophils/Leukocytes Auto (Bld) [Pure # fraction] 5.2 E9/L Normal 2.0 - 7.5 E9/L [facility]eAutoSS HEMATOLOGYOrdered By: Amy hwang on 01-22-2023 Erythrocyte distribution width (RBC) [Ratio] 15.2 % High 10.9 - 14.2 % [facility]eAuto[facility] Hematocrit (Bld) [Volume fraction] 43.1 % Normal 37.7 - 49.0 % [facility] HemeAutoSS Hemoglobin (Bld) [Mass/Vol] 14.6 g/dL Normal 13.5 - 17.5 gm/dL [facility] HemeAutoSS MCH (RBC) [Entitic mass] 28.1 pg Normal 27. 0 - 34.0 pg [facility] HemeAutoSS MCHC (RBC) [Mass/Vol] 33.8 g/dL Normal 31.4 - 36.0 gm/dL [facility] HemeAutoSS MCV (RBC) [Entitic vol] 83.2 fL Normal 80.0 - 100.0 fL [facility] HemeAutoSS Platelet mean volume (Bld) [Entitic vol] 8.6 fL Normal 6.4 - 10.8 fL [facility] HemeAutoSS Platelets (Bld) [#/Vol] 221.0 E9/L Normal 150. 0 - 500.0 E9/L [facility] HemeAutoSS RBC (Bld) [#/Vol] 5.2 E12/L Normal 4.3 - 5.9 E12/L [facility] HemeAutoSS WBC corrected for nucl RBC Auto (Bld) [#/Vol] 8.3 E9/L Normal 4.0 - 11.0 E9/L [facility] HemeAutoSS Insurance Correspondence Off iceon 01-22-2023 Insurance Correspondence Office [id number]#1 .[id number]:127 Normal [facility] Interdisciplinary Note - Santosh e Manageron 01-22-2023 Interdisciplinary Note - Software Engineer Kernel Normal [facility] Comment on above: Result Comment: Elec tronically Signed By: Natalie Grant\.br\Date and Time Signed: 01/22/23 11:13 EDT Interdisciplinary Note - Murphy n 01-22-2023 Interdisciplinary Note - OT Normal [facility] Interdisciplinary Note - PTo n 01-22-2023 Interdisciplinary Note - PT Normal [facility] Message from Medicareon Message from Medicare [id number]#1 .00CD:127 Normal [facility] Progress Note-Physicianon Progress Note-Physician Normal F [facility] Comment on above: Result Comment: Elec tronically Signed By: New Johnson DO.br\Date and Time Signed: 01/22/23 14:15 EDT eGFRon 01-22-2023 GFR/1.73 sq M.predicted among non-blacks MDRD (S/P/Bld) [Vol rate/Area] 56 mL/min/1.73 m2 Low >=59 [facility] Comment on above: Order Comment: Order added by Discern Expert. Result Comment: Food Preservation Scientist earnest kidney disease could be indicated at eGFR's of less than 60 mL/min/1.73m2. Kidney failure is indicated at less than 15 mL/min/1.73m2. Performed By: #### 2 086056, 83346916, 3048075, 1338818 ####[facility] [address] [place] [address] Auto Diffon 01-21-2023 Basophils/100 WBC (Bld) 0.9 % Normal 0.0-2.0 [facility] Comment on above: Order Comment: Order Added by Discern Expert. Performed By: #### 2 015510, 9881410, 84284255, 83610067, 3480909, 6766961 ####[facility] [address] [place] [address] Basophils/Leukocytes Auto (Bld) [Pure # fraction] 0.1 E9/L Normal 0.0-0.2 [facility] Comment on above: Order Comment: Order Added by Discern Expert. Performed By: #### 2 306821, 3357750, 95766740, 25073077, 7768710, 6765148 ####[address] [place] [address] Eosinophils/100 WBC (Bld) 3.3 % Normal 0.0-8.0 [facility] Comment on above: Order Comment: Order Added by Discern Expert. Performed By: #### 2 509577, 5925620, 25488106, 86590610, 9753001, 8851532 ####[address] [place] [address] Eosinophils/Leukocytes Auto (Bld) [Pure # fraction] 0.4 E9/L Normal 0.0-0.5 [facility] Comment on above: Order Comment: Order Added by Bethany Expert. Performed By: #### 2 368116, 8539923, 84792484, 87610436, 7227784, 1425255 ####[address] [address] Lymphocytes/100 WBC (Bld) 10.4 % Low 14.0-50.0 [facility] Comment on above: Order Comment: Order Added by Bethany Expert. Performed By: #### 2 957900, 2144198, 85253156, 56096425, 1034835, 0618124 ####[address] [address] Lymphocytes/Leukocytes Auto (Bld) [Pure # fraction] 1.2 E9/L Normal 1.0-4.0 [facility] Comment on above: Order Comment: Order Added by Discern Expert. Performed By: #### 2 586195, 5880480, 13756313, 33559702, 4257814, 6805686 ####[address] [place] [address] Monocytes/100 WBC (Bld) 7.4 % Normal 4.0-14.0 [facility] Comment on above: Order Comment: Order Added by Discern Expert. Performed By: #### 2 309786, 3228521, 54170844, 76189341, 1861666, 0585498 ####[address] [place] [address] Monocytes/Leukocytes Auto (Bld) [Pure # fraction] 0.9 E9/L Normal 0.2-1.0 [facility] Comment on above: Order Comment: Order Added by Discern Expert. Performed By: #### 2 910370, 7347974, 48766256, 06624577, 6773434, 6114290 ####[address] [place] [address] Neutrophils/100 WBC (Bld) 78.0 % High 36.0-75.0 [facility] Comment on above: Order Comment: Order Added by Discern Expert. Performed By: #### 2 993460, 7185294, 62274639, 10765569, 3549371, 5111409 ####[address] [address] Neutrophils/Leukocytes Auto (Bld) [Pure # fraction] 9.1 E9/L High 2.0-7.5 [facility] Comment on above: Order Comment: Order Added by Discern Expert. Performed By: #### 2 315746, 8390515, 10474522, 54007502, 5087089, 4986865 ####[address] [place] [address] BMPon 01-21-2023 Creatinine [Mass/Vol] 1.2 mg/dL Normal 0.5-1.3 [facility] Comment on above: Performed By: #### 2 417446, 7055395, 39291532, 03689055, 4623549, 4384637 ####[address] [place] [address] Urea nitrogen [Mass/Vol] 38 mg/dL High 5-21 [facility] Comment on above: Performed By: #### 2 900796, 7153132, 07850232, 76447349, 5744827, 2235513 ####[address] [place] [address] Urea nitrogen/Creatinine [Mass ratio] 32 No Units High 10-20 [facility] Comment on above: Performed By: #### 2 618962, 0404076, 54232182, 94882393, 4557008, 8899112 ####[facility] [address] [place] [address] Anion gap [Moles/Vol] 14 mmol/L Normal 6-16 [facility] Comment on above: Performed By: #### 2 412218, 7800350, 65140402, 64273664, 3603346, 1121802 ####[facility] [address] [place] [address] Calcium [Mass/Vol] 9.9 mg/dL Normal 8.9-11.1 [facility] Comment on above: Performed By: #### 2 483356, 1742791, 93008942, 98884417, 0682972, 5412272 ####[facility] [address] [place] [address] Chloride [Moles/Vol] 95 mmol/L Low 101-[address] [facility] Comment on above: Performed By: #### 2 004400, 6736366, 79797966, 26078448, 0020061, 7215032 ####[facility] [address] [place] [address] CO2 [Moles/Vol] 31 mmol/L Normal 21-31 [facility] Comment on above: Performed By: #### 2 154855, 5794508, 26201182, 87435033, 7495254, 0037513 ####[facility] [address] [place] [address] Glucose [Mass/Vol] 124 mg/dL Normal 55-199 [facility] Comment on above: Result Comment: If t his glucose result represents a fasting glucose, interpretation should refer to the following reference range: 55-99 mg/dL Performed By: #### 2 609636, 1303428, 93701174, 82584550, 1398521, 4782867 ####[facility] [address] [place] [address] Potassium [Moles/Vol] 4.3 mmol/L Normal 3.5-5.3 [facility] Comment on above: Performed By: #### 2 149711, 7014158, 17280662, 38401247, 1840811, 9581603 ####[facility] [address] [place] [address] Sodium [Moles/Vol] 136 mmol/L Normal 135-145 [facility] Comment on above: Performed By: #### 2 074766, 2750566, 88795497, 99851655, 4154030, 8183056 ####[facility] [address] [place] [address] CBC w/ Auto Diffon Erythrocyte distribution width (RBC) [Ratio] 15.4 % High 10.9-14.2 [facility] Comment on above: Performed By: #### 2 426223, 9247995, 25735938, 89312143, 0128819, 5775383 ####[facility] [address] [place] [address] Hematocrit (Bld) [Volume fraction] 42.5 % Normal 37.7-49.0 [facility] Comment on above: Performed By: #### 2 480565, 4736810, 22806499, 63201610, 2489397, 0102779 ####[facility] [address] [place] [address] Hemoglobin (Bld) [Mass/Vol] 13.9 g/dL Normal 13.5-17.5 [facility] Comment on above: Performed By: #### 2 038233, 0767287, 39228602, 47868078, 2440251, 1421731 ####[facility] [address] [place] [address] MCH (RBC) [Entitic mass] 27.3 pg Normal 27.0-34.0 [facility] Comment on above: Performed By: #### 2 867465, 1351417, 88561660, 86248926, 0014549, 5733395 ####[address] [place] [address] MCHC (RBC) [Mass/Vol] 32.7 g/dL Normal 31.4-36.0 [facility] Comment on above: Performed By: #### 2 977898, 7858714, 15268249, 07277633, 3833891, 6637176 ####[address] [address] MCV (RBC) [Entitic vol] 83.4 fL Normal 80.0-100.0 [facility] Comment on above: Performed By: #### 2 848984, 9737482, 84050588, 65073132, 5355969, 2384295 ####[address] [address] Platelet mean volume (Bld) [Entitic vol] 8.6 fL Normal 6.4-10.8 [facility] Comment on above: Performed By: #### 2 390714, 0253211, 22187321, 81781035, 3895460, 9294299 ####[address] [address] Platelets (Bld) [#/Vol] 252.0 E9/L Normal 150.0-500.0 [facility] Comment on above: Performed By: #### 2 494618, 9237519, 26734637, 71158472, 6568988, 2228377 ####[address] [address] RBC (Bld) [#/Vol] 5.1 E12/L Normal 4.3-5.9 [facility] Comment on above: Performed By: #### 2 851250, 5478449, 32519129, 02525999, 9670586, 0306512 ####[address] [address] WBC corrected for nucl RBC Auto (Bld) [#/Vol] 11.6 E9/L High 4.0-11.0 [facility] Comment on above: Performed By: #### 2 878856, 6688396, 13619600, 67780471, 8545534, 9282932 ####[facility] [address] [place] [address] CHEMISTRYOrdered By: SYSTEM SYSTEM on 01-21-2023 Troponin I.cardiac [Mass/Vol] 23.90 pg/mL Normal 15.90 - 38.40 pg/mL [facility] Rem[facility] Albumin [Mass/Vol] 3.9 g/dL Normal 3.3 - 5.0 gm/dL [facility] Albumin/Globulin [Mass ratio] 1.0 {ratio} Low 1.1 - 2.2 [facility] ALP [Catalytic activity/Vol] 50 [iU]/d Normal 21 - 98 Int._Unit/L [facility] ALT No additional P-5'-P [Catalytic activity/Vol] 23 [iU]/d Normal 6 - 46 Int._Unit/L [facility] Anion gap [Moles/Vol] 14 mmol/L Normal 6 - 16 mEq/L [facility] AST [Catalytic activity/Vol] 22 [iU]/d Normal 5 - 43 Int._Unit/L [facility] Bilirubin [Mass/Vol] 0.9 mg/dL Normal 0.0 - 1 .1 mg/dL [facility] Bilirubin.direct [Mass/Vol] 0.1 mg/dL Normal 0.1 - 0.4 mg/dL [facility] Bilirubin.indirect [Mass or moles/Vol] 0.8 mg/dL Normal 0.1 - 0.9 mg/dL [facility] Calcium [Mass/Vol] 9.9 mg/dL Normal 8.9 - 11. 1 mg/dL [facility] Chloride [Moles/Vol] 95 mmol/L Low 101 - 1 11 mmol/L [facility] CO2 [Moles/Vol] 31 mmol/L Normal 21 - 31 mmol/L [facility] Creatinine [Mass/Vol] 1.2 mg/dL Normal 0.5 - 1.3 mg/dL [facility] GFR/1.73 sq M.predicted among non-blacks MDRD (S/P/Bld) [Vol rate/Area] 62 mL/min/1.73 m2 Normal >=59mL/min/ 1.73 m2 [facility] Chem S Globulin (S) [Mass/Vol] 3.8 g/dL Normal 1.4 - 4.0 gm/dL [facility] Glucose [Mass/Vol] 124 mg/dL Normal 55 - 199 mg/dL [facility] Potassium [Moles/Vol] 4.3 mmol/L Normal 3.5 - 5.3 mmol/L [facility] Protein [Mass/Vol] 7.7 g/dL Normal 6.0 - 7.8 gm/dL [facility] Sodium [Moles/Vol] 136 mmol/L Normal 135 - 145 mmol/L [facility] Troponin I.cardiac [Mass/Vol] 25.50 pg/mL Normal 15.90 - 38.40 pg/mL [facility] Urea nitrogen [Mass/Vol] 38 mg/dL High 5 - 21 mg/dL [facility] Urea nitrogen/Creatinine [Mass ratio] 32 mg/mg High 10 - 20 [facility] Consent for Treatmenton 12-24 Consent for Treatment [id number]#1 .00CD:127 Normal [facility] ED Clinical Summaryon 2022 ED Clinical Summary Normal [facility] ED Note-Physicianon 01-22-20 23 ED Note-Physician Normal [facility] Comment on above: Result Comment: Elec tronically Signed By: Gustavo Yusuf DO.br\Date and Time Signed: 01/21/23 19:26 EDT ED Patient Education Noteon 01-21-2023 ED Patient Education Note Normal [facility] ED Patient Summaryon 023 ED Patient Summary Normal [facility] HEMATOLOGYOrdered By: SYSTEM SYSTEM on 01-21-2023 Basophils/100 WBC (Bld) 0.9 % Normal 0.0 - 2.0 % [facility] HemeAutoSS Basophils/Leukocytes Auto (Bld) [Pure # fraction] 0.1 E9/L Normal 0.0 - 0.2 E9/L [facility] Eosinophils/100 WBC (Bld) 3.3 % Normal 0.0 - 8.0 % [facility]eAuto[facility] Eosinophils/Leukocytes Auto (Bld) [Pure # fraction] 0.4 E9/L Normal 0.0 - 0.5 E9/L [facility]Auto[facility] Lymphocytes/100 WBC (Bld) 10.4 % Low 14.0 - 50.0 % [facility]eAuto[facility] Lymphocytes/Leukocytes Auto (Bld) [Pure # fraction] 1.2 E9/L Normal 1.0 - 4.0 E9/L [facility]eAuto[facility] Monocytes/100 WBC (Bld) 7.4 % Normal 4.0 - 14.0 % [facility]eAuto[facility] Monocytes/Leukocytes Auto (Bld) [Pure # fraction] 0.9 E9/L Normal 0.2 - 1.0 E9/L [facility] Neutrophils/100 WBC (Bld) 78.0 % High 36.0 - 75.0 % [facility]eAuto[facility] Neutrophils/Leukocytes Auto (Bld) [Pure # fraction] 9.1 E9/L High 2.0 - 7.5 E9/L [facility] HEMATOLOGYOrdered By: Olimpia Cardona on 01-21-2023 Erythrocyte distribution width (RBC) [Ratio] 15.4 % High 10.9 - 14.2 % [facility]Auto[facility] Hematocrit (Bld) [Volume fraction] 42.5 % Normal 37.7 - 49.0 % [facility]eAuto[facility] Hemoglobin (Bld) [Mass/Vol] 13.9 g/dL Normal 13.5 - 17.5 gm/dL [facility]Auto[facility] MCH (RBC) [Entitic mass] 27.3 pg Normal 27. 0 - 34.0 pg [facility]eAuto[facility] MCHC (RBC) [Mass/Vol] 32.7 g/dL Normal 31.4 - 36.0 gm/dL [facility]eAuto[facility] MCV (RBC) [Entitic vol] 83.4 fL Normal 80.0 - 100.0 fL [facility]eAutoSS Platelet mean volume (Bld) [Entitic vol] 8.6 fL Normal 6.4 - 10.8 fL [facility]eAutoSS Platelets (Bld) [#/Vol] 252.0 E9/L Normal 150. 0 - 500.0 E9/L [facility]eAuto[facility] RBC (Bld) [#/Vol] 5.1 E12/L Normal 4.3 - 5.9 E12/L [facility] HemeAutoSS WBC corrected for nucl RBC Auto (Bld) [#/Vol] 11.6 E9/L High 4.0 - 11.0 E9/L [facility] HemeAutoSS Hep Func Panelon 01-21-2023 Bilirubin.direct [Mass/Vol] 0.1 mg/dL Normal 0.1-0.4 [facility] Comment on above: Performed By: #### 2 867278, 7179794, 99586063, 42404993, 5289468, 5508940 ####[facility] [address] [place] [address] Bilirubin.indirect [Mass or moles/Vol] 0.8 mg/dL Normal 0.1-0.9 [facility] Comment on above: Performed By: #### 2 846885, 9452735, 22627306, 70212073, 9206301, 9420805 ####[facility] [address] [place] [address] Albumin [Mass/Vol] 3.9 g/dL Normal 3.3-5.0 [facility] Comment on above: Performed By: #### 2 326054, 7584150, 76675621, 84934002, 5891181, 7945351 ####[facility] [address] [place] [address] Albumin/Globulin (S) [Mass conc ratio] 1.0 Low 1.1-2.2 [facility] Comment on above: Performed By: #### 2 377475, 9282420, 23466390, 86727640, 2738128, 9104721 ####[facility] [address] [place] [address] ALP [Catalytic activity/Vol] 50 Int._Unit/L Normal 21-98 [facility] Comment on above: Performed By: #### 2 569696, 8632180, 76270622, 60189252, 1248547, 4181432 ####[facility] [address] [place] [address] ALT No additional P-5'-P [Catalytic activity/Vol] 23 Int._Unit/L Normal 6-46 [facility] Comment on above: Performed By: #### 2 811197, 1236650, 96203721, 69479630, 1135490, 7610129 ####[facility] [address] [place] [address] AST [Catalytic activity/Vol] 22 Int._Unit/L Normal 5-43 [facility] Comment on above: Performed By: #### 2 624909, 4971878, 81981656, 26077503, 5388853, 4397273 ####[address] [place] [address] Bilirubin [Mass/Vol] 0.9 mg/dL Normal 0.0-1.1 [facility] Comment on above: Performed By: #### 2 100986, 7694604, 05769020, 08396947, 3131015, 3008340 ####[facility] [address] [place] [address] Globulin (S) [Mass/Vol] 3.8 g/dL Normal 1.4-4.0 [facility] Comment on above: Performed By: #### 2 316821, 0907879, 57908633, 29865036, 7580911, 8077033 ####[facility] [address] [place] [address] Protein [Mass/Vol] 7.7 g/dL Normal 6.0-7.8 [facility] Comment on above: Performed By: #### 2 547908, 4069889, 36285158, 37679570, 8175252, 7970827 ####[facility] [address] [place] [address] Long-Term Recordson 01-21 Long-Term Records [id number]# 1.00CD:127 Normal [facility] Troponin 0 Hr.on 01-21-2023 Troponin I.cardiac [Mass/Vol] 25.50 pg/mL Normal 15.90-38.40 [facility] Comment on above: Result Comment: The 95% CI (Confidence Interval) PPV (Positive Predictive Value) for myocardial infarction in females is 38 pg/mL, in males 51 pg/mL. The results should be used in conjunction with clinical conditions of myocardial infarction.(Access High Sensitivity Troponin I Instructions For Use, [employer], December 2017) Performed By: #### 2 249484, 1100365, 69737272, 59764919, 7943301, 9423438 ####[facility] [address] [place] [address] Troponin 3 Hr.on 01-21-2023 Troponin I.cardiac [Mass/Vol] 23.90 pg/mL Normal 15.90-38.40 [facility] Comment on above: Result Comment: The 95% CI (Confidence Interval) PPV (Positive Predictive Value) for myocardial infarction in females is 38 pg/mL, in males 51 pg/mL. The results should be used in conjunction with clinical conditions of myocardial infarction.(Access High Sensitivity Troponin I Instructions For Use, [employer], December 2017) Performed By: #### 1 7482742 ####[address] [address] UA With Cult Reflexon 2022 Bilirubin Ql (U) Negative Normal Negative [facility] Comment on above: Performed By: #### 1 1047995 ####[place] [address] Clarity (U) CLEAR Normal Clear [facility] Comment on above: Performed By: #### 1 4340761 ####[address] [address] Color (U) STRAW Abnormal Yellow [facility] Comment on above: Performed By: #### 1 9292191 ####[address] [address] Epithelial cells.squamous LM.HPF (Urine sed) [#/Area] 0-2 Normal 0-2 [facility] Comment on above: Performed By: #### 1 5177088 ####[facility] [address] [place] [address] Glucose Test strip (U) [Mass/Vol] Negative Normal Negative [facility] Comment on above: Performed By: #### 1 6135103 ####[facility] [address] [place] [address] Hemoglobin Ql (U) Negative Normal Negative [facility] Comment on above: Performed By: #### 1 7341729 ####[address] [address] Ketones (U) [Mass/Vol] Negative Normal Negative [facility] Comment on above: Performed By: #### 1 3906312 ####[address] [address] [place].plasma/[email or web address] BC (Bld) [Mass ratio] 0-3 Normal 0-3 [facility] Comment on above: Performed By: #### 1 [id number] ####[address] [address] Nitrite Ql (U) Negative Normal Negative [facility] Comment on above: Performed By: #### 1 [id number] ####[address] [address] pH (U) 6.0 [pH] Invalid Interpretation Code 5.0-9.0 [facility] Comment on above: Performed By: #### 1 [id number] ####[address] [address] Protein (U) [Mass/Vol] Negative Normal Negative [facility] Comment on above: Performed By: #### 1 [id number] ####[address] [address] Specific gravity (U) [Rel density] 1.010 Invalid Interpretation Code 1.005-1.030 [facility] Comment on above: Performed By: #### 1 [id number] ####[address] [address] Type of Urine collection method Clean Catch Normal [facility] Comment on above: Performed By: #### 1 [id number] ####[facility] [id number] [place] [id number] Urobilinogen Qn (U) 0.2 {Lei'U}/dL Normal 0.0-1.0 [facility] Comment on above: Performed By: #### 1 [id number] ####[facility] [address] [place] [id number] WBC Auto Ql (U) Negative Normal Negative [facility] Comment on above: Performed By: #### 1 [id number] ####[facility] [address] [place], [place] [address] WBC LM.HPF (Urine sed) [#/Area] 0-5 Normal 0-5 [facility] Comment on above: Performed By: #### 1 [id number] ####[facility] [address] [place] [id number] URINALYSISOrdered By: Karen Vergara on 01-21-2023 Bilirubin Ql (U) Negative (01/21/23 4:41 PM) Normal Negative [facility]A Auto SS Clarity (U) Clear (01/21/23 4:41 PM) Normal Clear [facility] UA Auto SS Color (U) Straw *ABN* (01/21/23 4:41 PM) Invalid Interpretation Code Yellow [facility] UA Auto SS Epithelial cells.squamous LM.HPF (Urine sed) [#/Area] 0-2 /HPF Normal 0-2/HPF [facility] UA Aut o SS Glucose Test strip (U) [Mass/Vol] Negative (01/21/23 4:41 PM) Normal Negative [facility] UA Auto SS Hemoglobin Ql (U) Negative (01/21/23 4:41 PM) Normal Negative [facility] UA Auto SS Ketones (U) [Mass/Vol] Negative (01/21/23 4:41 PM) Normal Negative [facility] UA Auto SS [place].plasma/[place].R BC (Bld) [Mass ratio] 0-3 /HPF Normal 0-3/HPF [facility] UA Au to SS Nitrite Ql (U) Negative (01/21/23 4:41 PM) Normal Negative [facility] UA Auto SS pH (U) 6.0 *NA* (01/21/23 4:41 PM) Invalid Interpretation Code 5.0 - 9.0 [facility] UA Auto SS Protein (U) [Mass/Vol] Negative (01/21/23 4:41 PM) Normal Negative [facility] UA Auto SS Specific gravity (U) [Rel density] 1.010 *NA* (01/21/23 4:41 PM) Invalid Interpretation Code 1.005 - 1.030 [facility] UA Auto SS UA Spec Desc Clean Catch (01/21/23 4:41 PM) Normal [facility] UA Auto SS Urobilinogen Qn (U) 0.0687024 {Lei'U}/dL Normal 0.0 - 1.0 EU/dL [facility] UA Auto SS WBC Auto Ql (U) Negative (01/21/23 4:41 PM) Normal Negative [facility] UA Auto SS WBC LM.HPF (Urine sed) [#/Area] 0-5 /HPF Normal 0-5/HPF [facility] UA Auto SS XR Chest Single Viewon 01-21 XR Chest Single View Normal [facility] eGFRon 01-21-2023 GFR/1.73 sq M.predicted among non-blacks MDRD (S/P/Bld) [Vol rate/Area] 62 mL/min/1.73 m2 Normal >=59 [facility] Comment on above: Order Comment: Order added by Discern Expert. Result Comment: Food Preservation Scientist earnest kidney disease could be indicated at eGFR's of less than 60 mL/min/1.73m2. Kidney failure is indicated at less than 15 mL/min/1.73m2. Performed By: #### 2 843511, 6754176, 83975856, 66906255, 2358884, 4724457 ####[facility] [address] [place] [address] Discharge Instructionson Discharge Instructions [id number]#1 .00CD:127 Normal [facility] Capillary Glucose POCon 12-23 Glucose [Mass/Vol] 117 mg/dL High 55-99 [facility] Comment on above: Result Comment: Yazimn bri Meter Performed By: #### 2 [id number] ####[facility] [address] [place] [address] Family Medicine Office/Clini c Noteon 01-15-2023 Family Medicine Office/Clinic Note Normal [facility] Comment on above: Result Comment: Elec tronically Signed By: SHAISTA POTTS, Dennise.br\Date and Time Signed: 01/15/23 16:46 EDT Capillary Glucose POCon 12-23 Glucose [Mass/Vol] 121 mg/dL High 55-[address] [place] [address] Comment on above: Result Comment: Yazmin bri Meter Performed By: #### 2 [id number] ####[facility] [address] [place] [address] Capillary Glucose POCon 12-23 Glucose [Mass/Vol] 127 mg/dL [address] Comment on above: Result Comment: Yazmin bri Meter Performed By: #### 2 [id number] ####[facility] [address] [place] [address] Capillary Glucose POCon 12-22 Glucose [Mass/Vol] 104 mg/dL [address] Comment on above: Result Comment: Yazmin bri Meter Performed By: #### 2 [id number] ####[facility] [address] [place] [address] Capillary Glucose POCon 12-22 Glucose [Mass/Vol] 121 mg/dL [address] Comment on above: Result Comment: Yazmin bri Meter Performed By: #### 2 [id number] ####[facility] [address] [place] [address] Capillary Glucose POCon 12-22 Glucose [Mass/Vol] 110 mg/dL [facility] 5599 [facility] Comment on above: Result Comment: Yazmin bri Meter Performed By: #### 2 [id number] ####[facility] [address] [place] [address] Capillary Glucose POCon 12-22 Glucose [Mass/Vol] 119 mg/dL High 55-99 [facility] Comment on above: Result Comment: Yazmin bri Meter Performed By: #### 2 28576573 ####[facility] [address] [place] [address] Capillary Glucose POCon 12-22 Glucose [Mass/Vol] 141 mg/dL High 55-99 [facility] Comment on above: Result Comment: Yazmin bri Meter Performed By: #### 2 [id number] ####[facility] [address] [place] [address] Capillary Glucose POCon 12-22 Glucose [Mass/Vol] 104 mg/dL High 55-99 [facility] Comment on above: Result Comment: Yazmin bri Meter Performed By: #### 2 [id number] ####[facility] [address] [place] [address] BMPon 12-30-2022 Calcium [Mass/Vol] 9.1 mg/dL Normal 8.9-11.1 [facility] Comment on above: Performed By: #### 7 [id number], 1609087, 63753559 ####[facility] [address] [place] [address] Anion gap [Moles/Vol] 18 mmol/L High 6-16 [facility] Comment on above: Performed By: #### 7 19117237, 4945977, 24416039 ####[facility] [address] [place] [address] Chloride [Moles/Vol] 91 mmol/L Low 101-111 [facility] Comment on above: Performed By: #### 7 21555752, 2362616, 17620550 ####[facility] G[address] [place] [address] CO2 [Moles/Vol] 30 mmol/L Normal 21-31 [facility] Comment on above: Performed By: #### 7 11844193, 7817791, 63809452 ####[facility] [address] [place] [address] Creatinine [Mass/Vol] 1.3 mg/dL Normal 0.5-1.3 [facility] Comment on above: Performed By: #### 7 27083657, 7537875, 13406842 ####[facility] [address] [place] [address] Glucose [Mass/Vol] 171 mg/dL Normal 55-199 [facility] Comment on above: Result Comment: If t his glucose result represents a fasting glucose, interpretation should refer to the following reference range: 55-99 mg/dL Performed By: #### 7 [id number], 3729020, 84119146 ####[facility] [address] [place] [address] Potassium [Moles/Vol] 4.2 mmol/L Normal 3.5-5.3 [facility] Comment on above: Performed By: #### 7 73436818, 8714855, 71551281 ####[facility] [address] [place] [address] Sodium [Moles/Vol] 135 mmol/L Normal 135-145 [facility] Comment on above: Performed By: #### 7 36156087, 8872553, 16647056 ####[facility] [address] [place] [address] Urea nitrogen [Mass/Vol] 36 mg/dL High 5-21 [facility] Comment on above: Performed By: #### 7 83382145, 3593420, 79611830 ####[facility] [address] [place] [address] Urea nitrogen/Creatinine [Mass ratio] 28 No Units High 10-20 [facility] Comment on above: Performed By: #### 7 77130476, 6659162, 75721603 ####[facility] [address] [place] [address] UzyW5hrh 12-30-2022 HbA1c (Bld) [Mass fraction] 6.9 % High <=5.9 [facility] Comment on above: Performed By: #### 7 79386860, 5485215, 68213606 ####[facility] [address] [place] [address] eGFRon 12-30-2022 GFR/1.73 sq M.predicted among non-blacks MDRD (S/P/Bld) [Vol rate/Area] 56 mL/min/1.73 m2 Low >=59 [facility] Comment on above: Order Comment: Order added by Discern Expert. Result Comment: Food Preservation Scientist earnest kidney disease could be indicated at eGFR's of less than 60 mL/min/1.73m2. Kidney failure is indicated at less than 15 mL/min/1.73m2. Performed By: #### 7 32956189, 1052449, 12281283 ####[facility] [address] [place] [address] Capillary Glucose POCon 08-0 Glucose [Mass/Vol] 141 mg/dL High 55-99 [facility] Comment on above: Result Comment: Yazmin bri Meter Performed By: #### 2 [id number] ####[facility] [address] [place] [address] Capillary Glucose POCon 08-0 Glucose [Mass/Vol] 101 mg/dL [facility] 55-99 [facility] Comment on above: Result Comment: Yazmin bri Meter Performed By: #### 2 [id number] ####[facility] [address] [place] [address] C Blood Charcoalon 3 Blood Culture Charcoal Normal [facility] Comment on above: Performed By: #### 1 8767517 ####[facility] [address] [place] [address] Capillary Glucose POCon 08-0 Glucose [Mass/Vol] 135 mg/dL [facility] 55-99 [facility] Comment on above: Result Comment: Yazmin bri Meter Performed By: #### 2 08978345 ####[facility] [address] [place] [address] Capillary Glucose POCon 08-0 Glucose [Mass/Vol] 110 mg/dL High 55-99 [facility] Comment on above: Result Comment: Yazmin bri Meter Performed By: #### 2 96450546 ####[facility] [address] [place] [address] Consultation Noteon 12-24-19 Consultation Note Normal [facility] Comment on above: Result Comment: Elec tronically Signed By: Marcus POTTS, [place]\.br\Date and Time Signed: 12/23/22 07:33 EDT Family Medicine Office/Clini c Noteon 12-23-2022 Family Medicine Office/Clinic Note Normal [facility] Comment on above: Result Comment: Elec tronically Signed By: SHAISTA POTTS, Donta\Toshabr\Date and Time Signed: 12/22/22 22:31 EDT C Blood Charcoalon Blood Culture Charcoal Normal [facility] Comment on above: Performed By: #### 1 [id number] ####[facility] [address] [place] [address] U Legi Agon 12-22-2022 L. pneumophila 1 Ag IA Ql (U) Negative Invalid Interpretation Code Negative [facility] Comment on above: Result Comment: Pres umptive negative for L. pneumophila serogroup 1 antigen in urine,suggesting no recent or current infection. Legionnaires' diseasecannot be ruled out since other serogroups and species may also causedisease.Performed at: [facility] [id number] MD Tyler Gurrola Performed By: #### 2 468067 ####[facility] [address] [place] [address] C Urineon 12-21-2022 Bacteria identified Cx Nom (U) Normal [facility] Comment on above: Performed By: #### 1 8024542, 1935403 ####[facility] [address] [place] [address] Capillary Glucose POCon 11-23 Glucose [Mass/Vol] 134 mg/dL High 55-99 [facility] Comment on above: Result Comment: Yazmin bri Meter Performed By: #### 2 15511690 ####[facility] [address] [address] Auto DiffOrdered By: SYSTEM SYSTEM on 12-20-2022 Basophils/100 WBC (Bld) 0.5 % Normal 0.0-2.0 F C HemeAutoSS Comment on above: Order Comment: Order Added by Discern Expert. Performed By: #### 2 598326, 7157786, 67847217, 2028391 ####[address] [address] Basophils/Leukocytes Auto (Bld) [Pure # fraction] 0.0 E9/L Normal 0.0-0.2 [facility] HemeAutoSS Comment on above: Order Comment: Order Added by Discern Expert. Performed By: #### 2 342556, 6541527, 00314380, 5754802 ####[address] [address] Eosinophils/100 WBC (Bld) 7.9 % Normal 0.0-8.0 FT HemeAutoSS Comment on above: Order Comment: Order Added by Discern Expert. Performed By: #### 2 309462, 7642163, 37337989, 0931353 ####[address] [address] Eosinophils/Leukocytes Auto (Bld) [Pure # fraction] 0.8 E9/L High 0.0-0.5 [facility] HemeAutoSS Comment on above: Order Comment: Order Added by Discern Expert. Performed By: #### 2 803882, 9940946, 66259841, 9425383 ####[address] [address] Lymphocytes/100 WBC (Bld) 9.5 % Low 14.0-50.0 [facility] HemeAutoSS Comment on above: Order Comment: Order Added by Discern Expert. Performed By: #### 2 684497, 2149585, 88412060, 3687022 ####[address] [address] Lymphocytes/Leukocytes Auto (Bld) [Pure # fraction] 1.0 E9/L Normal 1.0-4.0 FT HemeAutoSS Comment on above: Order Comment: Order Added by Discern Expert. Performed By: #### 2 364632, 7652336, 77927078, 3808114 ####[address] [address] Monocytes/100 WBC (Bld) 7.6 % Normal 4.0-14.0 [facility]eAuto[facility] Comment on above: Order Comment: Order Added by Discern Expert. Performed By: #### 2 078726, 3318582, 56370497, 2659696 ####[address] [address] Monocytes/Leukocytes Auto (Bld) [Pure # fraction] 0.8 E9/L Normal 0.2-1.0 [facility] HemeAutoSS Comment on above: Order Comment: Order Added by Discern Expert. Performed By: #### 2 637292, 8272710, 07903926, 8373517 ####[address] [address] Neutrophils/100 WBC (Bld) 74.5 % Normal 36.0-75.0 [facility] HemeAutoSS Comment on above: Order Comment: Order Added by Discern Expert. Performed By: #### 2 026731, 8097181, 49682965, 1549869 ####[address] [address] Neutrophils/Leukocytes Auto (Bld) [Pure # fraction] 7.7 E9/L High 2.0-7.5 [facility] HemeAutoSS Comment on above: Order Comment: Order Added by Discern Expert. Performed By: #### 2 495173, 5162861, 16692069, 8111893 ####[address] [address] BMPOrdered By: SYSTEM SYSTEM on 12-20-2022 Anion gap [Moles/Vol] 8 mmol/L Normal 6-16 [facility] C Remisol Comment on above: Performed By: #### 2 623216, 9213646, 80554425, 9440285 ####[place] [address] [place] [address] Calcium [Mass/Vol] 7.9 mg/dL Low 8.9-11.1 FT R emisol Comment on above: Performed By: #### 2 749098, 6894999, 73318354, 2602046 ####[facility] [address] [place] [address] Chloride [Moles/Vol] 105 mmol/L Normal 101-111 [facility] Remisol Comment on above: Performed By: #### 2 601372, 1957448, 27392015, 0316705 ####[facility] [address] [place] [address] CO2 [Moles/Vol] 25 mmol/L Normal 21-31 FT Ashwin luanne Comment on above: Performed By: #### 2 166684, 9437483, 67094401, 0323106 ####[facility] [address] [place] [address] Creatinine [Mass/Vol] 1.0 mg/dL Normal 0.5-1.3 [facility] C Remisol Comment on above: Performed By: #### 2 296875, 7893625, 07210306, 6555063 ####[facility] [address] [place] [address] Glucose [Mass/Vol] 106 mg/dL Normal 55-199 [facility] R emisol Comment on above: Result Comment: If t his glucose result represents a fasting glucose, interpretation should refer to the following reference range: 55-99 mg/dL Performed By: #### 2 650278, 7891354, 89187784, 2026739 ####[facility] [address] [place] [address] Potassium [Moles/Vol] 4.4 mmol/L Normal 3.5-5.3 [facility] C Remisol Comment on above: Performed By: #### 2 326259, 2240244, 00195070, 0660788 ####[address] [address] Sodium [Moles/Vol] 134 mmol/L Low 135-145 [facility] R emisol Comment on above: Performed By: #### 2 448874, 0096492, 34244090, 8972925 ####[facility] [address] [place] [address] Urea nitrogen [Mass/Vol] 22 mg/dL High 5-21 [facility] Remisol Comment on above: Performed By: #### 2 331140, 2479198, 60036596, 2831894 ####[facility] [address] [place] [address] BMPon 12-20-2022 Urea nitrogen/Creatinine [Mass ratio] 22 No Units High 10-20 [facility] Comment on above: Performed By: #### 2 061166, 4161857, 15240965, 4777980 ####[address] [address] CBC w/ Auto DiffOrdered By: Bony Hdez on 12-20-2022 Erythrocyte distribution width (RBC) [Ratio] 14.7 % High 10.9-14.2 [facility] HemeAutoSS Comment on above: Performed By: #### 2 229183, 7896180, 74259197, 4067535 ####[address] [address] Hematocrit (Bld) [Volume fraction] 34.6 % Low 37.7-49.0 [facility] HemeAutoSS Comment on above: Performed By: #### 2 734843, 6161135, 35165068, 7702095 ####[address] [address] Hemoglobin (Bld) [Mass/Vol] 11.7 g/dL Low 13.5-17.5 FT HemeAutoSS Comment on above: Performed By: #### 2 681998, 9523228, 23790198, 6111995 ####[address] [address] MCH (RBC) [Entitic mass] 28.6 pg Normal 27.0-34.0 [facility] HemeAutoSS Comment on above: Performed By: #### 2 984668, 6992182, 61881984, 3234711 ####[place] [address] MCHC (RBC) [Mass/Vol] 33.7 g/dL Normal 31.4-36.0 [facility] C HemeAutoSS Comment on above: Performed By: #### 2 719762, 0646493, 25849697, 8304690 ####[place] [address] MCV (RBC) [Entitic vol] 84.7 fL Normal 80.0-100.0 F [facility] HemeAutoSS Comment on above: Performed By: #### 2 888058, 9651438, 40382609, 2701457 ####[place] [address] Platelet mean volume (Bld) [Entitic vol] 9.5 fL Normal 6.4-10.8 [facility] HemeAutoSS Comment on above: Performed By: #### 2 616217, 2339243, 41901074, 5699799 ####[facility] [place] [address] Platelets (Bld) [#/Vol] 216.0 E9/L Normal 150.0-500.0 [facility] HemeAutoSS Comment on above: Performed By: #### 2 527971, 9734884, 79242861, 0001323 ####[place] [place] [address]45457 RBC (Bld) [#/Vol] 4.1 E12/L Low 4.3-5.9 [facility] HemeAutoSS Comment on above: Performed By: #### 2 308601, 6239342, 54853897, 4863522 ####[facility] [place] [address]457 WBC corrected for nucl RBC Auto (Bld) [#/Vol] 10.3 E9/L Normal 4.0-11.0 [facility] HemeAutoSS Comment on above: Performed By: #### 2 683409, 5573481, 32121826, 5985916 ####[facility] [address] [place] [address] CHEMISTRYOrdered By: Lab ROP User on 12-20-2022 Glucose [Mass/Vol] 109 mg/dL High 55 - 99 mg/dL [facility] POC Subsection Comment on above: Result Comment: Gareth GARDINER POC Device SN [id number] Invalid Interpretation Code [facility] POC Subsection POC User ID [id number] Invalid Interpretation Code [facility] POC Subsection POC Username SAMANTHA LAMBERT Invalid Interpretation Code [facility] POC Subsection CHEMISTRYOrdered By: SYSTEM SYSTEM on 12-20-2022 Urea nitrogen/Creatinine [Mass ratio] 22 mg/mg High 10 - 20 [facility] Remisol Capillary Glucose POCon 11-23 Glucose [Mass/Vol] 198 mg/dL High 55-99 [facility] Comment on above: Result Comment: Yazmin bri Meter Performed By: #### 2 63688823 ####[facility] [address] [place] [address] Glucose [Mass/Vol] 109 mg/dL High 55-99 [facility] Comment on above: Result Comment: Gareth GARDINER Performed By: #### 2 53708253 ####[facility] [address] [place] [address] Discharge Documentationon Discharge Documentation [id number]#1 .00CD:127 Normal [facility] Inpatient Patient Summaryon 12-20-2022 Inpatient Patient Summary Normal [facility] Message from Medicareon 11-23 Message from Medicare [id number]# 1.00CD:127 Normal [facility] Monitor Recordon 12-20-2022 Monitor Record [id number]# 1.00CD:127 Normal [facility] Monitor Record [id number]# 1.00CD:127 Normal [facility] Monitor Record [id number]# 1.00CD:127 Normal [facility] Progress Note-Nurseon 2022 Progress Note-Nurse SBAR report called fanta Robert. Patient was transferred into wheelchair x2 stand pivot. Patient discharged to [facility] room 17. Transport by Samantha Katie POCT. Normal [facility] Transfer Documentson 023 Transfer Documents [id number]#1 .00CD:127 Normal [facility] eGFROrdered By: SYSTEM NAU VenturesE UCAN on 12-20-2022 GFR/1.73 sq M.predicted among non-blacks MDRD (S/P/Bld) [Vol rate/Area] 77 mL/min/1.73 m2 Normal >=59 [facility] Chem S Comment on above: Order Comment: Order added by Discern Expert. Result Comment: Food Preservation Scientist earnest kidney disease could be indicated at eGFR's of less than 60 mL/min/1.73m2. Kidney failure is indicated at less than 15 mL/min/1.73m2. Performed By: #### 2 902616, 1945916, 02998802, 6989256 ####[facility] [address] [place] [address] Auto Diffon 12-19-2022 Basophils/100 WBC (Bld) 0.4 % Normal 0.0-2.0 [facility] Comment on above: Order Comment: Order Added by Discern Expert. Performed By: #### 1 1662420, 2701232, 4517838, 2955100 ####[facility] [address] [place] [address] Basophils/Leukocytes Auto (Bld) [Pure # fraction] 0.0 E9/L Normal 0.0-0.2 [facility] Comment on above: Order Comment: Order Added by Discern Expert. Performed By: #### 1 0242597, 2123967, 9653303, 4472824 ####[facility] [address] [place] [address] Eosinophils/100 WBC (Bld) 4.2 % Normal 0.0-8.0 [facility] Comment on above: Order Comment: Order Added by Discern Expert. Performed By: #### 1 9092397, 8392250, 6652623, 6150831 ####[facility] [address] [place] [address] Eosinophils/Leukocytes Auto (Bld) [Pure # fraction] 0.6 E9/L High 0.0-0.5 [facility] Comment on above: Order Comment: Order Added by Discern Expert. Performed By: #### 1 2253394, 7442001, 8797222, 7755224 ####[address] [address] [place] [address] Lymphocytes/100 WBC (Bld) 7.3 % Low 14.0-50.0 [facility] Comment on above: Order Comment: Order Added by Bethany Expert. Performed By: #### 1 5178408, 8904379, 9798999, 3994940 ####[address] [address] Lymphocytes/Leukocytes Auto (Bld) [Pure # fraction] 1.0 E9/L Normal 1.0-4.0 [facility] Comment on above: Order Comment: Order Added by Bethany Expert. Performed By: #### 1 0817561, 7989310, 3054905, 3653355 ####[address] [address] Monocytes/100 WBC (Bld) 6.5 % Normal 4.0-14.0 [facility] Comment on above: Order Comment: Order Added by Discern Expert. Performed By: #### 1 9246761, 0383792, 4446249, 6019846 ####[address] [address] [place] [address] Monocytes/Leukocytes Auto (Bld) [Pure # fraction] 0.9 E9/L Normal 0.2-1.0 [facility] Comment on above: Order Comment: Order Added by Bethany Expert. Performed By: #### 1 8655558, 9439869, 0850073, 3486480 ####[facility] [address] [place] [address] [place] [address] Neutrophils/100 WBC (Bld) 81.6 % High 36.0-75.0 [facility] Comment on above: Order Comment: Order Added by Discern Expert. Performed By: #### 1 4732528, 2561406, 5632799, 3380410 ####[facility] [address] [place] [address] Neutrophils/Leukocytes Auto (Bld) [Pure # fraction] 10.7 E9/L High 2.0-7.5 [facility] Comment on above: Order Comment: Order Added by Discern Expert. Performed By: #### 1 0623810, 4974510, 9053907, 8487579 ####[facility] [address] [place] [address] BMPon 12-19-2022 Anion gap [Moles/Vol] 11 mmol/L Normal 6-16 [facility] Comment on above: Performed By: #### 1 9146965, 7644430, 5824891, 1320000 ####[facility] [address] [place] [address] Calcium [Mass/Vol] 8.5 mg/dL Low 8.9-11.1 [facility] Comment on above: Performed By: #### 1 0912208, 6135699, 5440412, 0969477 ####[facility] [address] [place] [address] Chloride [Moles/Vol] 103 mmol/L Normal 101-111 [facility] Comment on above: Performed By: #### 1 7365272, 5743494, 2530541, 2530771 ####[facility] [address] [place] [address] CO2 [Moles/Vol] 28 mmol/L Normal 21-31 [facility] Comment on above: Performed By: #### 1 8694449, 4423387, 6426291, 3909351 ####[facility] [address] [place] [address] Creatinine [Mass/Vol] 1.2 mg/dL Normal 0.5-1.3 [facility] Comment on above: Performed By: #### 1 8039912, 7443157, 4825714, 8535359 ####[facility] [address] [place] [address] Glucose [Mass/Vol] 86 mg/dL Normal 55-199 [facility] Comment on above: Result Comment: If t his glucose result represents a fasting glucose, interpretation should refer to the following reference range: 55-99 mg/dL Performed By: #### 1 6340928, 5198929, 5196960, 7949762 ####[facility] [address] [place] [address] Potassium [Moles/Vol] 4.5 mmol/L Normal 3.5-5.3 [facility] Comment on above: Performed By: #### 1 9312720, 9954805, 3748208, 9510339 ####[facility] [address] [place] [address] Sodium [Moles/Vol] 137 mmol/L Normal 135-145 [facility] Comment on above: Performed By: #### 1 6883802, 0238291, 3812275, 0410485 ####[facility] [address] [place] [address] Urea nitrogen [Mass/Vol] 35 mg/dL High 5-21 [facility] Comment on above: Performed By: #### 1 0747838, 0536723, 2130770, 0333269 ####[facility] [address] [place] [address] Urea nitrogen/Creatinine [Mass ratio] 29 No Units High 10-20 [facility] Comment on above: Performed By: #### 1 1520081, 7672631, 8457234, 1211037 ####[facility] [address] [place] [address] CBC w/ Auto Diffon 3 Erythrocyte distribution width (RBC) [Ratio] 15.0 % High 10.9-14.2 [facility] Comment on above: Performed By: #### 1 1895192, 2283504, 4396139, 9027674 ####[facility] [address] [place] [address] Hematocrit (Bld) [Volume fraction] 38.4 % Normal 37.7-49.0 [facility] Comment on above: Performed By: #### 1 8383143, 1663705, 9865629, 5849014 ####[facility] [address] [place] [address] Hemoglobin (Bld) [Mass/Vol] 12.7 g/dL Low 13.5-17.5 [facility] Comment on above: Performed By: #### 1 4013042, 6059686, 3014046, 8394547 ####[address] [place] [address] MCH (RBC) [Entitic mass] 27.9 pg Normal 27.0-34.0 [facility] Comment on above: Performed By: #### 1 3100463, 2464721, 7956478, 0577824 ####[address] [address] MCHC (RBC) [Mass/Vol] 32.9 g/dL Normal 31.4-36.0 [facility] Comment on above: Performed By: #### 1 3552552, 9453704, 0347827, 4887897 ####[address] [place] [address] MCV (RBC) [Entitic vol] 84.8 fL Normal 80.0-100.0 [facility] Comment on above: Performed By: #### 1 9724250, 6256894, 5291307, 4355663 ####[address] [place] [address] Platelet mean volume (Bld) [Entitic vol] 9.5 fL Normal 6.4-10.8 [facility] Comment on above: Performed By: #### 1 3563271, 7200104, 6910800, 8130632 ####[address] [address] Platelets (Bld) [#/Vol] 230.0 E9/L Normal 150.0-500.0 [facility] Comment on above: Performed By: #### 1 9305665, 6924871, 4395000, 7999362 ####[facility] [address] [place] [address] RBC (Bld) [#/Vol] 4.5 E12/L Normal 4.3-5.9 [facility] Comment on above: Performed By: #### 1 5650012, 8085217, 5157826, 0363760 ####[facility] [address] [place] [address] WBC corrected for nucl RBC Auto (Bld) [#/Vol] 13.1 E9/L High 4.0-11.0 [facility] Comment on above: Performed By: #### 1 8134365, 7753182, 9710617, 0239752 ####[facility] [address] [place] [address] CHEMISTRYOrdered By: Lab ROP User on 12-19-2022 Glucose [Mass/Vol] 210 mg/dL High 55 - 99 mg/dL [facility] POC Subsection Comment on above: Result Comment: Gareth guerrero RN/ POC Device SN [id number] Invalid Interpretation Code FT POC Subsection POC User ID [id number] Invalid Interpretation Code [facility] POC Subsection POC Username SHER GAVIRIA Invalid Interpretation Code [facility] POC Subsection Glucose [Mass/Vol] 111 mg/dL High 55 - 99 mg/dL [facility] POC Subsection Comment on above: Result Comment: Gareth guerrero RN/ POC Device SN [id number] Invalid Interpretation Code FT POC Subsection POC User ID [id number] Invalid Interpretation Code FT POC Subsection POC Username KELLEN HERNANDEZ Invalid Interpretation Code [facility] POC Subsection CHEMISTRYOrdered By: SYSTEM SYSTEM on 12-19-2022 Anion gap [Moles/Vol] 11 mmol/L Normal 6 - 16 mEq/L FT Remisol Calcium [Mass/Vol] 8.5 mg/dL Low 8.9 - 11. 1 mg/dL [facility] Remisol Chloride [Moles/Vol] 103 mmol/L Normal 101 - 1 11 mmol/L [facility] Remisol CO2 [Moles/Vol] 28 mmol/L Normal 21 - 31 mmol/L [facility] Remisol Creatinine [Mass/Vol] 1.2 mg/dL Normal 0.5 - 1.3 mg/dL [facility] Remisol GFR/1.73 sq M.predicted among non-blacks MDRD (S/P/Bld) [Vol rate/Area] 62 mL/min/1.73 m2 Normal >=59mL/min/ 1.73 m2 [facility] Chem S Glucose [Mass/Vol] 86 mg/dL Normal 55 - 199 mg/dL [facility] Remisol Potassium [Moles/Vol] 4.5 mmol/L Normal 3.5 - 5.3 mmol/L [facility] Remisol Sodium [Moles/Vol] 137 mmol/L Normal 135 - 145 mmol/L [facility] Remisol Urea nitrogen [Mass/Vol] 35 mg/dL High 5 - 21 mg/dL [facility] Remisol Urea nitrogen/Creatinine [Mass ratio] 29 mg/mg High 10 - 20 [facility] Remisol Capillary Glucose POCon 11-22 Glucose [Mass/Vol] 210 mg/dL High 55-99 [facility] Comment on above: Result Comment: Gareth GARDINER Performed By: #### 2 [id number] ####[facility] [address] [place] [address] Glucose [Mass/Vol] 111 mg/dL High 55-99 [facility] Comment on above: Result Comment: Gareth GARDINER Performed By: #### 2 [id number] ####[facility] [address] [place] [address] Glucose [Mass/Vol] 201 mg/dL High 55-99 [facility] Comment on above: Result Comment: Gareth GARDINER Performed By: #### 2 [id number] ####[facility] [address] [place] [address] Glucose [Mass/Vol] 93 mg/dL Normal 55-99 [facility] Comment on above: Result Comment: Gareth GARDINER Performed By: #### 2 [id number] ####[facility] [address] [place] [address] HEMATOLOGYOrdered By: SYSTEM SYSTEM on 12-19-2022 Basophils/100 WBC (Bld) 0.4 % Normal 0.0 - 2.0 % [facility] HemeAutoSS Basophils/Leukocytes Auto (Bld) [Pure # fraction] 0.0 E9/L Normal 0.0 - 0.2 E9/L [facility] HemeAutoSS Eosinophils/100 WBC (Bld) 4.2 % Normal 0.0 - 8.0 % [facility] HemeAutoSS Eosinophils/Leukocytes Auto (Bld) [Pure # fraction] 0.6 E9/L High 0.0 - 0.5 E9/L [facility] HemeAutoSS Lymphocytes/100 WBC (Bld) 7.3 % Low 14.0 - 50.0 % [facility] HemeAutoSS Lymphocytes/Leukocytes Auto (Bld) [Pure # fraction] 1.0 E9/L Normal 1.0 - 4.0 E9/L [facility] HemeAutoSS Monocytes/100 WBC (Bld) 6.5 % Normal 4.0 - 14.0 % [facility] HemeAutoSS Monocytes/Leukocytes Auto (Bld) [Pure # fraction] 0.9 E9/L Normal 0.2 - 1.0 E9/L [facility] HemeAutoSS Neutrophils/100 WBC (Bld) 81.6 % High 36.0 - 75.0 % [facility] HemeAutoSS Neutrophils/Leukocytes Auto (Bld) [Pure # fraction] 10.7 E9/L High 2.0 - 7.5 E9/L [facility] HemeAutoSS HEMATOLOGYOrdered By: Bony Hdez on 12-19-2022 Erythrocyte distribution width (RBC) [Ratio] 15.0 % High 10.9 - 14.2 % [facility] HemeAutoSS Hematocrit (Bld) [Volume fraction] 38.4 % Normal 37.7 - 49.0 % [facility] HemeAutoSS Hemoglobin (Bld) [Mass/Vol] 12.7 g/dL Low 13.5 - 17.5 gm/dL [facility] HemeAutoSS MCH (RBC) [Entitic mass] 27.9 pg Normal 27. 0 - 34.0 pg [facility] HemeAutoSS MCHC (RBC) [Mass/Vol] 32.9 g/dL Normal 31.4 - 36.0 gm/dL [facility] HemeAutoSS MCV (RBC) [Entitic vol] 84.8 fL Normal 80.0 - 100.0 fL [facility] HemeAutoSS Platelet mean volume (Bld) [Entitic vol] 9.5 fL Normal 6.4 - 10.8 fL [facility] HemeAutoSS Platelets (Bld) [#/Vol] 230.0 E9/L Normal 150. 0 - 500.0 E9/L [facility] HemeAutoSS RBC (Bld) [#/Vol] 4.5 E12/L Normal 4.3 - 5.9 E12/L [facility] HemeAutoSS WBC corrected for nucl RBC Auto (Bld) [#/Vol] 13.1 E9/L High 4.0 - 11.0 E9/L [facility] HemeAutoSS Monitor Recordon 12-19-2022 Monitor Record [id number]# 1.00CD:127 Normal [facility] Monitor Record [id number]# 1.00CD:127 Normal [facility] Progress Note-Physicianon Progress Note-Physician Normal [facility] Comment on above: Result Comment: Elec tronically Signed By: MICHAEL POTTS, Jamir\.br\Date and Time Signed: 12/19/22 09:47 EDT eGFRon 12-19-2022 GFR/1.73 sq M.predicted among non-blacks MDRD (S/P/Bld) [Vol rate/Area] 62 mL/min/1.73 m2 Normal >=59 [facility] Comment on above: Order Comment: Order added by Discern Expert. Result Comment: Food Preservation Scientist earnest kidney disease could be indicated at eGFR's of less than 60 mL/min/1.73m2. Kidney failure is indicated at less than 15 mL/min/1.73m2. Performed By: #### 1 2044587, 3286263, 6075938, 8568195 ####[facility] [address] [place] [address] Auto Diffon 12-18-2022 Basophils/100 WBC (Bld) 0.4 % Normal 0.0-2.0 [facility] Comment on above: Order Comment: Order Added by Discern Expert. Performed By: #### 2 732481, 3295544 ####[address] [address] Basophils/Leukocytes Auto (Bld) [Pure # fraction] 0.1 E9/L Normal 0.0-0.2 [facility] Comment on above: Order Comment: Order Added by Discern Expert. Performed By: #### 2 765343, 6895794 ####[address] [address] Eosinophils/100 WBC (Bld) 2.8 % Normal 0.0-8.0 [facility] Comment on above: Order Comment: Order Added by Discern Expert. Performed By: #### 2 654289, 9940342 ####[address] [address] Eosinophils/Leukocytes Auto (Bld) [Pure # fraction] 0.4 E9/L Normal 0.0-0.5 [facility] Comment on above: Order Comment: Order Added by Discern Expert. Performed By: #### 2 843098, 2736432 ####[address] [address] Lymphocytes/100 WBC (Bld) 9.0 % Low 14.0-50.0 [facility] Comment on above: Order Comment: Order Added by Discern Expert. Performed By: #### 2 185153, 5659884 ####[address] [address] Lymphocytes/Leukocytes Auto (Bld) [Pure # fraction] 1.3 E9/L Normal 1.0-4.0 [facility] Comment on above: Order Comment: Order Added by Discern Expert. Performed By: #### 2 081806, 7998640 ####[address] [address] Monocytes/100 WBC (Bld) 8.3 % Normal 4.0-14.0 [facility] Comment on above: Order Comment: Order Added by Discern Expert. Performed By: #### 2 816578, 3795476 ####[address] [place] [address] Monocytes/Leukocytes Auto (Bld) [Pure # fraction] 1.3 E9/L High 0.2-1.0 [facility] Comment on above: Order Comment: Order Added by Discern Expert. Performed By: #### 2 667503, 3649634 ####[address] [address] Neutrophils/100 WBC (Bld) 79.5 % High 36.0-75.0 [facility] Comment on above: Order Comment: Order Added by Discern Expert. Performed By: #### 2 600610, 1969459 ####[address] [address] Neutrophils/Leukocytes Auto (Bld) [Pure # fraction] 11.9 E9/L High 2.0-7.5 [facility] Comment on above: Order Comment: Order Added by Discern Expert. Performed By: #### 2 502194, 2328929 ####[address] [address] Basophils/100 WBC (Bld) 0.6 % Normal 0.0-2.0 [facility] Comment on above: Order Comment: Order Added by Discern Expert. Performed By: #### 1 2380859, 6974741, 82168159, 5686297, 14844492, 96354672, 1383341 ####[address] [address] Basophils/Leukocytes Auto (Bld) [Pure # fraction] 0.1 E9/L Normal 0.0-0.2 [facility] Comment on above: Order Comment: Order Added by Discern Expert. Performed By: #### 1 5254925, 6084854, 71608724, 4367733, 18154143, 07736343, 1537228 ####[address] [place] [address] Eosinophils/100 WBC (Bld) 2.0 % Normal 0.0-8.0 [facility] Comment on above: Order Comment: Order Added by Discern Expert. Performed By: #### 1 4076162, 2028986, 10019417, 1646513, 57671642, 68897361, 0941230 ####[address] [place] [address] Eosinophils/Leukocytes Auto (Bld) [Pure # fraction] 0.3 E9/L Normal 0.0-0.5 [facility] Comment on above: Order Comment: Order Added by Discern Expert. Performed By: #### 1 3563573, 6637118, 99221042, 3869340, 24022025, 17562103, 3373279 ####[address] [place] [address] Lymphocytes/100 WBC (Bld) 7.6 % Low 14.0-50.0 [facility] Comment on above: Order Comment: Order Added by Bethany Expert. Performed By: #### 1 6243279, 8713935, 42499632, 9058976, 30848340, 02743039, 5028955 ####[address] [address] Lymphocytes/Leukocytes Auto (Bld) [Pure # fraction] 1.3 E9/L Normal 1.0-4.0 [facility] Comment on above: Order Comment: Order Added by Bethany Expert. Performed By: #### 1 9582849, 1226089, 94834196, 8062695, 91501855, 52686957, 3608547 ####[address] [place] [address] Monocytes/100 WBC (Bld) 7.8 % Normal 4.0-14.0 [facility] Comment on above: Order Comment: Order Added by Bethany Expert. Performed By: #### 1 4541582, 5511710, 63378091, 5656572, 33109214, 28125221, 5128001 ####[address] [place] [address] Monocytes/Leukocytes Auto (Bld) [Pure # fraction] 1.3 E9/L High 0.2-1.0 [facility] Comment on above: Order Comment: Order Added by Discern Expert. Performed By: #### 1 5656935, 1118090, 38901265, 1136483, 53611906, 38775234, 1145096 ####[facility] [address] [place] [address] Neutrophils/100 WBC (Bld) 82.0 % High 36.0-75.0 [facility] Comment on above: Order Comment: Order Added by Discern Expert. Performed By: #### 1 2430541, 5453448, 55314301, 0845820, 32488636, 78665585, 8386902 ####[facility] [address] [place] [address] Neutrophils/Leukocytes Auto (Bld) [Pure # fraction] 13.7 E9/L High 2.0-7.5 [facility] Comment on above: Order Comment: Order Added by Bethany Expert. Performed By: #### 1 2827993, 8381055, 57954106, 8240072, 49116010, 68870149, 3740686 ####[facility] [address] [place] [address] BMPon 12-18-2022 Creatinine [Mass/Vol] 1.6 mg/dL High 0.5-1.3 [facility] Comment on above: Performed By: #### 2 400048, 6258700, 2267128487, 76001052, 42225264 ####[facility] [address] [place] [address] Urea nitrogen [Mass/Vol] 47 mg/dL High 5-21 [facility] Comment on above: Performed By: #### 2 080114, 4303839, 6515385763, 34129545, 09223789 ####[facility] [address] [place] [address] Urea nitrogen/Creatinine [Mass ratio] 29 No Units High 10-20 [facility] Comment on above: Performed By: #### 2 833371, 2388077, 8243140599, 12325026, 85351535 ####[facility] [address] [place] [address] Anion gap [Moles/Vol] 12 mmol/L Normal 6-16 [facility] Comment on above: Performed By: #### 2 031323, 2366639, 1064233091, 10706506, 74406062 ####[facility] [address] [place] [address] Calcium [Mass/Vol] 8.7 mg/dL Low 8.9-11.1 [facility] Comment on above: Performed By: #### 2 307348, 6807315, 3035009759, 49872395, 84747955 ####[facility] [address] [place] [address] Chloride [Moles/Vol] 97 mmol/L Low 101-[address] [facility] Comment on above: Performed By: #### 2 773438, 7686003, 5926789229, 14137722, 49535387 ####[facility] [address] [place] [address] CO2 [Moles/Vol] 32 mmol/L High 21-31 [facility] Comment on above: Performed By: #### 2 341353, 3644463, 3936705521, 37943328, 30821338 ####[facility] [address] [place] [address] Glucose [Mass/Vol] 131 mg/dL Normal 55-199 [facility] Comment on above: Result Comment: If t his glucose result represents a fasting glucose, interpretation should refer to the following reference range: 55-99 mg/dL Performed By: #### 2 105980, 7075757, 7368248918, 56202876, 42484801 ####[facility] [address] [place] [address] Potassium [Moles/Vol] 3.7 mmol/L Normal 3.5-5.3 [facility] Comment on above: Performed By: #### 2 235168, 5997193, 1705706329, 44275758, 37463905 ####[facility] [address] [place] [address] Sodium [Moles/Vol] 137 mmol/L Normal 135-145 [facility] Comment on above: Performed By: #### 2 720415, 7986458, 7880295312, 42692001, 66853953 ####[facility] [address] [place] [address] Creatinine [Mass/Vol] 1.8 mg/dL High 0.5-1.3 [facility] Comment on above: Performed By: #### 1 3883937, 2051140, 36110861, 8677348, 65066298, 69750548, 5420876 ####[facility] [address] [place] [address] Urea nitrogen [Mass/Vol] 49 mg/dL High 5-21 [facility] Comment on above: Performed By: #### 1 0611995, 8659968, 62401286, 0190994, 86624238, 97765562, 2744152 ####[facility] [address] [place] [address] Urea nitrogen/Creatinine [Mass ratio] 27 No Units High 10-20 [facility] Comment on above: Performed By: #### 1 9562348, 6552294, 66122056, 9683763, 47776693, 74733936, 2226980 ####[facility] [address] [place] [address] Anion gap [Moles/Vol] 18 mmol/L High 6-16 [facility] Comment on above: Performed By: #### 1 0291729, 9716569, 76976807, 6236646, 08536179, 98354564, 0469035 ####[facility] [address] [place] [address] Calcium [Mass/Vol] 9.3 mg/dL Normal 8.9-11.1 [facility] Comment on above: Performed By: #### 1 7328584, 6154089, 21226100, 8463099, 09942137, 48050676, 3283425 ####[facility] [address] [place] [address] Chloride [Moles/Vol] 93 mmol/L Low 101-[address] [facility] Comment on above: Performed By: #### 1 2491582, 2603011, 97650704, 4537147, 28281593, 64952690, 5927405 ####[facility] [address] [place] [address] CO2 [Moles/Vol] 29 mmol/L Normal 21-31 [facility] Comment on above: Performed By: #### 1 0334188, 8597117, 02507731, 5621916, 92937197, 13210543, 4420996 ####[facility] [address] [place] [address] Glucose [Mass/Vol] 137 mg/dL Normal 55-199 [facility] Comment on above: Result Comment: If t his glucose result represents a fasting glucose, interpretation should refer to the following reference range: 55-99 mg/dL Performed By: #### 1 8727942, 5829607, 16658334, 3849274, 24237511, 20702465, 3478854 ####[facility] [address] [place] [address] Potassium [Moles/Vol] 4.0 mmol/L Normal 3.5-5.3 [facility] Comment on above: Performed By: #### 1 0740909, 2163543, 89951393, 9102892, 83605997, 47717719, 0177147 ####[facility] [address] [place] [address] Sodium [Moles/Vol] 136 mmol/L Normal 135-145 [facility] Comment on above: Performed By: #### 1 1056648, 9923057, 21861791, 2885098, 53631198, 29319459, 7041710 ####[facility] [address] [place] [address] BNPon 12-18-2022 Int Ctr BNP Pass Normal [facility] Comment on above: Performed By: #### 1 4587476, 0399730, 38968492, 7064812, 43098705, 11908139, 0572328 ####[facility] [address] [place] [address] Natriuretic peptide B (Bld) [Mass/Vol] 219 pg/mL High 5-80 [facility] Comment on above: Performed By: #### 1 9492709, 1664740, 23183788, 8854190, 47265097, 41164565, 4933914 ####[facility] [address] [place] [address] CBC w/ Auto Diffon Erythrocyte distribution width (RBC) [Ratio] 14.8 % High 10.9-14.2 [facility] Comment on above: Performed By: #### 2 727632, 5363509 ####[address] Hematocrit (Bld) [Volume fraction] 37.8 % Normal 37.7-49.0 [facility] Comment on above: Performed By: #### 2 316222, 6278396 ####[address] Hemoglobin (Bld) [Mass/Vol] 12.7 g/dL Low 13.5-17.5 [facility] Comment on above: Performed By: #### 2 611696, 0232419 ####[address] [address] MCH (RBC) [Entitic mass] 28.3 pg Normal 27.0-34.0 [facility] Comment on above: Performed By: #### 2 323139, 7417018 ####[address] [place] [address] MCHC (RBC) [Mass/Vol] 33.6 g/dL Normal 31.4-36.0 [facility] Comment on above: Performed By: #### 2 039222, 5694919 ####[facility] [address] [place] [address] MCV (RBC) [Entitic vol] 84.2 fL Normal 80.0-100.0 [facility] Comment on above: Performed By: #### 2 936204, 0736219 ####[address] [address] Platelet mean volume (Bld) [Entitic vol] 9.2 fL Normal 6.4-10.8 [facility] Comment on above: Performed By: #### 2 251955, 2151201 ####[address] [address] Platelets (Bld) [#/Vol] 219.0 E9/L Normal 150.0-500.0 [facility] Comment on above: Performed By: #### 2 968834, 7830423 ####[address] [address] RBC (Bld) [#/Vol] 4.5 E12/L Normal 4.3-5.9 [facility] Comment on above: Performed By: #### 2 433643, 5613026 ####[address] [address] WBC corrected for nucl RBC Auto (Bld) [#/Vol] 15.0 E9/L High 4.0-11.0 [facility] Comment on above: Performed By: #### 2 718692, 6960408 ####[address] [address] Erythrocyte distribution width (RBC) [Ratio] 14.9 % High 10.9-14.2 [facility] Comment on above: Performed By: #### 1 5142503, 1730336, 03465867, 0168489, 36646629, 13303300, 4701928 ####[address] [address] Hematocrit (Bld) [Volume fraction] 42.8 % Normal 37.7-49.0 [facility] Comment on above: Performed By: #### 1 9872989, 8487944, 82757443, 7708607, 15970866, 31131654, 4231615 ####[facility] [address] [place] [address] Hemoglobin (Bld) [Mass/Vol] 14.3 g/dL Normal 13.5-17.5 [facility] Comment on above: Performed By: #### 1 4644589, 0251044, 19693891, 1462107, 06526838, 13605288, 3465392 ####[facility] [address] [place] [address] MCH (RBC) [Entitic mass] 28.1 pg Normal 27.0-34.0 [facility] Comment on above: Performed By: #### 1 1098433, 9569447, 47756212, 3182130, 19756133, 82553999, 0833269 ####[facility] [address] [place], [place] [address] MCHC (RBC) [Mass/Vol] 33.3 g/dL Normal 31.4-36.0 [facility] Comment on above: Performed By: #### 1 5495272, 6747165, 19636824, 9754726, 12128779, 45200733, 3741145 ####[facility] [address] [place] [address] MCV (RBC) [Entitic vol] 84.3 fL Normal 80.0-100.0 [facility] Comment on above: Performed By: #### 1 8950590, 4473818, 55723162, 8031564, 32572215, 03531644, 9397849 ####[address] [place] [address] Platelet mean volume (Bld) [Entitic vol] 9.8 fL Normal 6.4-10.8 [facility] Comment on above: Performed By: #### 1 3850245, 1859519, 30168986, 3532331, 79459679, 90431126, 7413141 ####[facility] [address] [place] [address] Platelets (Bld) [#/Vol] 234.0 E9/L Normal 150.0-500.0 [facility] Comment on above: Performed By: #### 1 6916525, 7716975, 67932196, 2722576, 46739154, 71847125, 1285647 ####[facility] [address] [place] [address] RBC (Bld) [#/Vol] 5.1 E12/L Normal 4.3-5.9 [facility] Comment on above: Performed By: #### 1 4957752, 3054532, 58608950, 5082328, 96029317, 35960741, 2398366 ####[facility] [address] [place] [address] WBC corrected for nucl RBC Auto (Bld) [#/Vol] 16.7 E9/L High 4.0-11.0 [facility] Comment on above: Result Comment: Slid e reviewed by JENNIFER. Performed By: #### 1 5970706, 6745212, 84231533, 0633030, 75007200, 36548355, 3182033 ####[facility] [address] [place] [address] CHEMISTRYOrdered By: SYSTEM SYSTEM on 12-18-2022 Troponin I.cardiac [Mass/Vol] 18.90 pg/mL Normal 15.90 - 38.40 pg/mL [facility] Remisol Anion gap [Moles/Vol] 12 mmol/L Normal 6 - 16 mEq/L [facility] Remisol Calcium [Mass/Vol] 8.7 mg/dL Low 8.9 - 11. 1 mg/dL [facility] Remisol Chloride [Moles/Vol] 97 mmol/L Low 101 - 1 11 mmol/L [facility] Remisol CK [Catalytic activity/Vol] 55 [iU]/d Normal 14 - 261 Int._Unit/L [facility] Remisol CO2 [Moles/Vol] 32 mmol/L High 21 - 31 mmol/L [facility] Creatinine [Mass/Vol] 1.6 mg/dL High 0.5 - 1.3 mg/dL [facility] Remisol GFR/1.73 sq M.predicted among non-blacks MDRD (S/P/Bld) [Vol rate/Area] 44 mL/min/1.73 m2 Low >=59mL/min/ 1.73 m2 [facility] Chem S Glucose [Mass/Vol] 131 mg/dL Normal 55 - 199 mg/dL [facility] Potassium [Moles/Vol] 3.7 mmol/L Normal 3.5 - 5.3 mmol/L [facility] Procalcitonin 0.09 ng/mL Normal 0.00 - 0.50 ng/mL [facility] Sodium [Moles/Vol] 137 mmol/L Normal 135 - 145 mmol/L [facility] Remisol Troponin I.cardiac [Mass/Vol] 22.50 pg/mL Normal 15.90 - 38.40 pg/mL [facility] Remisol Urea nitrogen [Mass/Vol] 47 mg/dL High 5 - 21 mg/dL [facility] Remisol Urea nitrogen/Creatinine [Mass ratio] 29 mg/mg High 10 - 20 [facility] Remisol CHEMISTRYOrdered By: Yanet Apodaca on 12-18-2022 Troponin I.cardiac [Mass/Vol] 18.80 pg/mL Normal 15.90 - 38.40 pg/mL [facility] Remisol Natriuretic peptide B (Bld) [Mass/Vol] 219 pg/mL High 5 - 80 pg/mL [facility] HemeManSS CKon 12-18-2022 CK [Catalytic activity/Vol] 55 Int._Unit/L Normal 14-261 [facility] Comment on above: Performed By: #### 2 [id number], 9960290, [id number], 70738408, 33666853 ####[facility] [address] [place] [address] COAGULATIONOrdered By: Rachael Apodaca on 12-18-2022 aPTT Coag (PPP) [Time] 30.6 s Normal 25.1 - 36.5 second(s) [facility] Auto Coag INR Coag (PPP) [Relative time] 1.1 {INR} Invalid Interpretation Code FT Auto Coag PT Coag (PPP) [Time] 12.5 s Normal 9.4 - 1 2.5 second(s) [facility] Auto Coag CT Head or Brain w/o Contras ton 12-18-2022 CT Head or Brain w/o Contrast Normal [facility] CT Spine Cervical w/o Contra ston 12-18-2022 CT Spine Cervical w/o Contrast Normal [facility] Capillary Glucose POCon 11-22 Glucose [Mass/Vol] 212 mg/dL High 55-99 [facility] Comment on above: Result Comment: Gareth GARDINER Performed By: #### 2 [id number] ####[facility] [address] [place] [address] Glucose [Mass/Vol] 97 mg/dL Normal 55-99 [facility] Comment on above: Result Comment: Yazmin bri Meter Performed By: #### 2 [id number] ####[facility] [address] [place] [address] Glucose [Mass/Vol] 119 mg/dL High 55-99 [facility] Comment on above: Result Comment: Gareth GARDINER Performed By: #### 2 [id number] ####[facility] [address] [place] [address] Glucose [Mass/Vol] 131 mg/dL High 55-99 [facility] Comment on above: Result Comment: Gareth GARDINER Performed By: #### 2 [id number] ####[facility] [address] [place] [address] Consent for Treatmenton 11-22 Consent for Treatment [id number]# 1.00CD:127 Normal [facility] ED Clinical Summaryon 2022 ED Clinical Summary Normal [facility] ED Note-Physicianon 12-19-19 ED Note-Physician Normal [facility] Comment on above: Result Comment: Elec tronically Signed By: Guilherme POTTS, Malcom\.br\Date and Time Signed: 12/18/22 04:33 EDT ED Patient Education Noteon 12-18-2022 ED Patient Education Note Normal [facility] ED Patient Summaryon 023 ED Patient Summary Normal [facility] ED Traumaon 12-18-2022 ED Trauma [id number]# 1.00CD:127 Normal [facility] HEMATOLOGYOrdered By: SYSTEM SYSTEM on 12-18-2022 Basophils/100 WBC (Bld) 0.4 % Normal 0.0 - 2.0 % [facility] HemeAutoSS Basophils/Leukocytes Auto (Bld) [Pure # fraction] 0.1 E9/L Normal 0.0 - 0.2 E9/L [facility] HemeAutoSS Eosinophils/100 WBC (Bld) 2.8 % Normal 0.0 - 8.0 % [facility] HemeAutoSS Eosinophils/Leukocytes Auto (Bld) [Pure # fraction] 0.4 E9/L Normal 0.0 - 0.5 E9/L [facility] HemeAutoSS Lymphocytes/100 WBC (Bld) 9.0 % Low 14.0 - 50.0 % [facility] HemeAutoSS Lymphocytes/Leukocytes Auto (Bld) [Pure # fraction] 1.3 E9/L Normal 1.0 - 4.0 E9/L [facility] HemeAutoSS Monocytes/100 WBC (Bld) 8.3 % Normal 4.0 - 14.0 % [facility] HemeAutoSS Monocytes/Leukocytes Auto (Bld) [Pure # fraction] 1.3 E9/L High 0.2 - 1.0 E9/L [facility] HemeAutoSS Neutrophils/100 WBC (Bld) 79.5 % High 36.0 - 75.0 % [facility] HemeAutoSS Neutrophils/Leukocytes Auto (Bld) [Pure # fraction] 11.9 E9/L High 2.0 - 7.5 E9/L [facility] HemeAutoSS HEMATOLOGYOrdered By: Christine Garcia on 12-18-2022 Erythrocyte distribution width (RBC) [Ratio] 14.8 % High 10.9 - 14.2 % [facility] HemeAutoSS Hematocrit (Bld) [Volume fraction] 37.8 % Normal 37.7 - 49.0 % [facility] HemeAutoSS Hemoglobin (Bld) [Mass/Vol] 12.7 g/dL Low 13.5 - 17.5 gm/dL [facility] HemeAutoSS MCH (RBC) [Entitic mass] 28.3 pg Normal 27. 0 - 34.0 pg [facility] HemeAutoSS MCHC (RBC) [Mass/Vol] 33.6 g/dL Normal 31.4 - 36.0 gm/dL [facility] HemeAutoSS MCV (RBC) [Entitic vol] 84.2 fL Normal 80.0 - 100.0 fL [facility] HemeAutoSS Platelet mean volume (Bld) [Entitic vol] 9.2 fL Normal 6.4 - 10.8 fL [facility] HemeAutoSS Platelets (Bld) [#/Vol] 219.0 E9/L Normal 150. 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 informed staff in [facility] to send current medication list in fax.3N Normal [facility] Interdisciplinary Note - PTo n 12-18-2022 Interdisciplinary Note - PT Normal [facility] Laboratory - Microbiology an d Antimicrobial susceptibilityOrdered By: Karen Vergara on 12-18-2022 Bacteria identified Cx Nom (U) 10,000 cfu/ml Staphylococcus species Continuing incubation [facility] Monitor Recordon 12-18-2022 Monitor Record [id number]# 1.00CD:127 Normal [facility] No Panel InformationOrdered By: Karen Vergara on 12-18-2022 Blood Culture Charcoal Streptococcus spe cies Staphylococcus species coagulase negative In 1 of 2 blood culture bottles drawn. Isolated from aerobic bottle Preliminary gram stain results of gram positive cocci in clusters Result called to Dr. Mkcinney by and results read back for confirmation on 12/19/2022 09:39:39 [facility] No Panel InformationOrdered By: ANGPROCESSSERVER MICROBIOLOGY on 12-18-2022 Blood Culture Charcoal No growth at 2 da ys. Final to follow at 7 days. [facility] PT & PTTon 12-18-2022 aPTT Coag (PPP) [Time] 30.6 second(s) Normal 25.1-36.5 [facility] Comment on above: Result Comment: Para meter 15 days - 4 weeks 1 - 5 months 6 - 11 months 1 - 5 years 6 - 10 years 11 - 17 years PTT Mean: 35.4 (27.6-45.6) Mean: 33.5 (24.8-40.7) Mean: 32.4 (25.1-40.7) Mean: 31.6 (24.0-39.2) Mean: 31.6 (26.9-38.7) Mean: 31.0 (24.6-38.4) Pediatric Reference ranges were obtained from a study by Terence Young et al. prepared from 1437 samples obtained at 7 different centers using the same coagulation reagent and instrumentation as [facility]. Currently there are no coagulation studies available worldwide for children to 14 days, and no normal ranges. Heparin therapeutic range (represented by Anti-Factor Xa activity of 0.2 - 0.4 U/mL) corresponds to PTT of 56.6 - 109.0 sec. Performed By: #### 1 3084388, 8953863, 12383913, 1763805, 06832338, 35639119, 5111200 ####[facility] [address] [place] [address] INR Coag (PPP) [Relative time] 1.1 {INR} Invalid Interpretation Code [facility] Comment on above: Result Comment: INR results are specifically intended to assess patients stabilized on long-term Anticoagulation therapy suggested INR?s ?Less Intensive Anticoagulation? 2.0 ? 3.0Conventional Range 3.0 ? 4.5 Performed By: #### 1 3019717, 6430309, 55109392, 9078612, 84071852, 58368209, 6041161 ####[facility] [address] [place] [address] PT Coag (PPP) [Time] 12.5 second(s) Normal 9.4-12.5 [facility] Comment on above: Result Comment: 15 d ays - 4 weeks 1 - 5 months 6 -11 months 1 ? 5 years 6 ? 10 years 11 -17 years Mean: 11.2 (9.5 ? 12.6) Mean: 11.0 (9.7 ? 12.8) Mean: 11.0 (9.8 ? 13.0) Mean: 11.3 (9.9 ? 13.4) Mean: 11.7 (10.0 ? 14.6) Mean: 11.8 (10.0 - 14.1) Pediatric Reference ranges were obtained from a study by Terence Young et al. prepared from 1437 samples obtained at 7 different centers using the same coagulation reagent and instrumentation as [facility]. Currently there are no coagulation studies available worldwide for children to 14 days, and no normal ranges. Performed By: #### 1 6216051, 0128423, 80403734, 9703021, 86498826, 08785693, 4560660 ####[facility] [address] [place] [address] Procalcitoninon 12-18-2022 Procalcitonin .09 ng/mL Normal .00-.50 [facility] Comment on above: Result Comment: <0.5 ng/mL Low risk of severe sepsis and/or shock>2.0 ng/mL High risk of severe sepsis and/or shockConcentrations under 0.5 ng/mL do not exclude local infections or systemic infections in their initial stages (e.g.. under six hours from onset of illness). PCT concentrations between 0.5 and 2.0 ng/mL should be interpreted with consideration of the patient's history. In this range, it is recommended to retest PCT within 6 to 24 hours. Performed By: #### 2 680514, 3295919, [id number], 52248734, 84795592 ####[facility] [address] [place] [address] RAD - Preliminary Cat Scan R eporton 12-18-2022 RAD - Preliminary Cat Scan Report [id number]# 1.00CD:127 Normal [facility] Troponin 0 Hr.on 12-18-2022 Troponin I.cardiac [Mass/Vol] 23.50 pg/mL Normal 15.90-38.40 [facility] Comment on above: Result Comment: The 95% CI (Confidence Interval) PPV (Positive Predictive Value) for myocardial infarction in females is 38 pg/mL, in males 51 pg/mL. The results should be used in conjunction with clinical conditions of myocardial infarction.([employer] High Sensitivity Troponin I Instructions For Use, [employer], December 2017) Performed By: #### 1 8452442, 8092650, 45753647, 9503714, 67405944, 75184388, 5733823 ####[facility] [address] [place] [address] Troponin 3 Hr.on 12-18-2022 Troponin I.cardiac [Mass/Vol] 18.80 pg/mL Normal 15.90-38.40 [facility] Comment on above: Result Comment: The 95% CI (Confidence Interval) PPV (Positive Predictive Value) for myocardial infarction in females is 38 pg/mL, in males 51 pg/mL. The results should be used in conjunction with clinical conditions of myocardial infarction.([employer] High Sensitivity Troponin I Instructions For Use, [employer], December 2017) Performed By: #### 1 6623981 ####[facility] [address] [place] [address] Troponin 6 Hr.on 12-18-2022 Troponin I.cardiac [Mass/Vol] 22.50 pg/mL Normal 15.90-38.40 [facility] Comment on above: Result Comment: The 95% CI (Confidence Interval) PPV (Positive Predictive Value) for myocardial infarction in females is 38 pg/mL, in males 51 pg/mL. The results should be used in conjunction with clinical conditions of myocardial infarction.([employer] High Sensitivity Troponin I Instructions For Use, [employer], December 2017) Performed By: #### 2 247018, 5063510, [id number], 79403916, 30155926 ####[facility] [address] [place] [address] Troponin 9 Hr.on 12-18-2022 Troponin I.cardiac [Mass/Vol] 18.90 pg/mL Normal 15.90-38.40 [facility] Comment on above: Result Comment: The 95% CI (Confidence Interval) PPV (Positive Predictive Value) for myocardial infarction in females is 38 pg/mL, in males 51 pg/mL. The results should be used in conjunction with clinical conditions of myocardial infarction.([employer] High Sensitivity Troponin I Instructions For Use, [employer], December 2017) Performed By: #### 1 9843964 ####[place] 6[address]457 UA With Cult Reflexon 2022 Bacteria LM Ql (Urine sed) TRACE Normal Trace [facility] Comment on above: Performed By: #### 1 5220872, 6615050 ####[place] 6689457 Bilirubin Ql (U) Negative Normal Negative [facility] Comment on above: Performed By: #### 1 8544847, 9216660 ####[place] [address]457 Clarity (U) CLEAR Normal Clear [facility] Comment on above: Performed By: #### 1 2581862, 7740057 ####[address] [address] Color (U) YELLOW Normal Yellow [facility] Comment on above: Performed By: #### 1 6816101, 5272202 ####[place] [address]457 Epithelial cells.squamous LM.HPF (Urine sed) [#/Area] 0-2 Normal 0-2 [facility] Comment on above: Performed By: #### 1 2156214, 5067202 ####[address] [address] Glucose Test strip (U) [Mass/Vol] Negative Normal Negative [facility] Comment on above: Performed By: #### 1 7407551, 7695656 ####[address] [address] Hemoglobin Ql (U) TRACE Abnormal Negative [facility] Comment on above: Performed By: #### 1 5279396, 6792671 ####[address] [address] Ketones (U) [Mass/Vol] Negative Normal Negative [facility] Comment on above: Performed By: #### 1 9856283, 7119607 ####[address] [address] [place].plasma/[place].R BC (Bld) [Mass ratio] 0-3 Normal 0-3 [facility] Comment on above: Performed By: #### 1 7358182, 2303969 ####[address] [address] Nitrite Ql (U) Negative Normal Negative [facility] Comment on above: Performed By: #### 1 9047688, 9487843 ####[address] [address] pH (U) 6.5 [pH] Invalid Interpretation Code 5.0-9.0 [facility] Comment on above: Performed By: #### 1 1048498, 2800159 ####[address] [address] Protein (U) [Mass/Vol] Negative Normal Negative [facility] Comment on above: Performed By: #### 1 4098972, 2608581 ####[address] [address] Specific gravity (U) [Rel density] 1.020 Invalid Interpretation Code 1.005-1.030 [facility] Comment on above: Performed By: #### 1 0594630, 5478553 ####[address] [address] Type of Urine collection method Clean Catch Normal [facility] Comment on above: Performed By: #### 1 5220099, 6313403 ####[facility] [address] [place] [address]9957 Urobilinogen Qn (U) 0.2 {Lei'U}/dL Normal 0.0-1.0 [facility] Comment on above: Performed By: #### 1 7517426, 5334921 ####[facility] [address] [place], [place] [address] WBC Auto Ql (U) 3+ Abnormal Negative [facility] Comment on above: Performed By: #### 1 2814819, 1965386 ####[facility] [address] [place], [place] [address] WBC LM.HPF (Urine sed) [#/Area] /[HPF] Abnormal 0-5 [facility] Comment on above: Performed By: #### 1 0771953, 1819984 ####[facility] [address] [place], [place] [address] URINALYSISOrdered By: Houston Castillo on 12-18-2022 Bacteria LM Ql (Urine sed) Trace /HPF Normal Trace/HPF [facility] UA Auto SS Bilirubin Ql (U) Negative (12/18/22 4:45 PM) Normal Negative [facility] UA Auto SS Clarity (U) Clear (12/18/22 4:45 PM) Normal Clear [facility] UA Auto SS Color (U) Yellow (12/18/22 4:45 PM) Normal Yellow [facility] UA Auto SS Epithelial cells.squamous LM.HPF (Urine sed) [#/Area] 0-2 /HPF Normal 0-2/HPF [facility] UA Aut o SS Glucose Test strip (U) [Mass/Vol] Negative (12/18/22 4:45 PM) Normal Negative [facility] UA Auto SS Hemoglobin Ql (U) Trace *ABN* (12/18/22 4:45 PM) Invalid Interpretation Code Negative [facility] UA Auto SS Ketones (U) [Mass/Vol] Negative (12/18/22 4:45 PM) Normal Negative [facility]A Auto SS [place].plasma/[place].R BC (Bld) [Mass ratio] 0-3 /HPF Normal 0-3/HPF [facility]A Au to SS Nitrite Ql (U) Negative (12/18/22 4:45 PM) Normal Negative [facility] UA Auto SS pH (U) 6.5 *NA* (12/18/22 4:45 PM) Invalid Interpretation Code 5.0 - 9.0 [facility] UA Auto SS Protein (U) [Mass/Vol] Negative (12/18/22 4:45 PM) Normal Negative [facility] UA Auto SS Specific gravity (U) [Rel density] 1.020 *NA* (12/18/22 4:45 PM) Invalid Interpretation Code 1.005 - 1.030 [facility] UA Auto SS UA Spec Desc Clean Catch (12/18/22 4:45 PM) Normal [facility] UA Auto SS Urobilinogen Qn (U) 0.0690809 {Lei'U}/dL Normal 0.0 - 1.0 EU/dL FT UA Auto SS WBC Auto Ql (U) 3+ *ABN* (12/18/22 4:45 PM) Invalid Interpretation Code Negative [facility] UA Auto SS WBC LM.HPF (Urine sed) [#/Area] /[HPF] Invalid Interpretation Code 0-5/HPF [facility] UA Auto SS XR Chest Single Viewon 12-18 XR Chest Single View Normal [facility] XR Pelvis 1 or 2 Viewson XR Pelvis 1 or 2 Views Normal [facility] eGFRon 12-18-2022 GFR/1.73 sq M.predicted among non-blacks MDRD (S/P/Bld) [Vol rate/Area] 44 mL/min/1.73 m2 Low >=59 [facility] Comment on above: Order Comment: Order added by Discern Expert. Result Comment: Food Preservation Scientist earnest kidney disease could be indicated at eGFR's of less than 60 mL/min/1.73m2. Kidney failure is indicated at less than 15 mL/min/1.73m2. Performed By: #### 2 338408, 1427800, 0968593560, 55180932, 25501512 ####[facility] [address] [place] [address] GFR/1.73 sq M.predicted among non-blacks MDRD (S/P/Bld) [Vol rate/Area] 38 mL/min/1.73 m2 Low >=59 [facility] Comment on above: Order Comment: Order added by Discern Expert. Result Comment: Food Preservation Scientist earnest kidney disease could be indicated at eGFR's of less than 60 mL/min/1.73m2. Kidney failure is indicated at less than 15 mL/min/1.73m2. Performed By: #### 1 0129167, 0709313, 97037808, 6424114, 50135671, 67488825, 7866540 ####[facility] [address] [place] [address] Capillary Glucose POCon 11-22 Glucose [Mass/Vol] 165 mg/dL [address] Comment on above: Result Comment: Yazmin bri Meter Performed By: #### 2 [id number] ####[facility] [address] [place] [address] Glucose [Mass/Vol] 184 mg/dL [address] Comment on above: Performed By: #### 2 05023338 ####[facility] [address] [place] [address] Capillary Glucose POCon 11-22 Glucose [Mass/Vol] 184 mg/dL [address] Comment on above: Result Comment: Yazmin bri Meter Performed By: #### 2 85594119 ####[facility] [address] [place] [address] Glucose [Mass/Vol] 141 mg/dL [address] Comment on above: Result Comment: Yazmin bri Meter Performed By: #### 2 77083140 ####[facility] [address] [place] [address] Capillary Glucose POCon 11-22 Glucose [Mass/Vol] 183 mg/dL [address] Comment on above: Result Comment: Yazmin bri Meter Performed By: #### 2 36166343 ####[facility] [address] [place] [address] Glucose [Mass/Vol] 147 mg/dL High 55-99 [facility] Comment on above: Result Comment: Yazmin bri Meter Performed By: #### 2 30584485 ####[facility] [address] [place] [address] Capillary Glucose POCon 07- Glucose [Mass/Vol] 188 mg/dL High 55-99 [facility] Comment on above: Result Comment: Yazmin bri Meter Performed By: #### 2 35862454 ####[facility] [address] [place] [address] Glucose [Mass/Vol] 162 mg/dL High 55- [facility] Comment on above: Result Comment: Yazmin bri Meter Performed By: #### 2 38600172 ####[facility] [address] [place] [address] Auto Diffon 12-13-2022 Basophils/100 WBC (Bld) 0.0 % Normal 0.0-2.0 [facility] Comment on above: Order Comment: Order Added by Discern Expert. Performed By: #### 1 8057205, 9991133, 710330599, 7805424, 7286734 ####[address] [address] Basophils/Leukocytes Auto (Bld) [Pure # fraction] 0.0 E9/L Normal 0.0-0.2 [facility] Comment on above: Order Comment: Order Added by Discern Expert. Performed By: #### 1 7796476, 3090971, 639557380, 9759134, 0206310 ####[facility] [address] [place] [address] Eosinophils/100 WBC (Bld) 7.6 % Normal 0.0-8.0 [facility] Comment on above: Order Comment: Order Added by Discern Expert. Performed By: #### 1 9868750, 7433164, 650203064, 8534290, 8643552 ####[address] [address] Eosinophils/Leukocytes Auto (Bld) [Pure # fraction] 1.0 E9/L High 0.0-0.5 [facility] Comment on above: Order Comment: Order Added by Discern Expert. Performed By: #### 1 0261459, 3205020, 755262541, 2756738, 1040677 ####[facility] [address] [place] [address] Lymphocytes/100 WBC (Bld) 10.3 % Low 14.0-50.0 [facility] Comment on above: Order Comment: Order Added by Discern Expert. Performed By: #### 1 3895481, 1427763, 529595660, 9998262, 5976111 ####[place] [address] [place] [address] Lymphocytes/Leukocytes Auto (Bld) [Pure # fraction] 1.3 E9/L Normal 1.0-4.0 [facility] Comment on above: Order Comment: Order Added by Discern Expert. Performed By: #### 1 9875474, 8213140, 098168952, 0675458, 7835319 ####[address] [address] Monocytes/100 WBC (Bld) 9.6 % Normal 4.0-14.0 [facility] Comment on above: Order Comment: Order Added by Discern Expert. Performed By: #### 1 3927936, 9985195, 431127849, 1065505, 1768711 ####[address] [address] Monocytes/Leukocytes Auto (Bld) [Pure # fraction] 1.2 E9/L High 0.2-1.0 [facility] Comment on above: Order Comment: Order Added by Discern Expert. Performed By: #### 1 1690503, 0611967, 872415576, 6352494, 2111378 ####[place] [address] [place] [address] Neutrophils/100 WBC (Bld) 72.5 % Normal 36.0-75.0 [facility] Comment on above: Order Comment: Order Added by Discern Expert. Performed By: #### 1 6038739, 7387077, 379534689, 8604072, 9107079 ####[place] [address] [place] [address] Neutrophils/Leukocytes Auto (Bld) [Pure # fraction] 9.0 E9/L High 2.0-7.5 [facility] Comment on above: Order Comment: Order Added by Discern Expert. Performed By: #### 1 3377374, 3185461, 497426859, 2726479, 3386759 ####[place] [address] [place] [address] CBC w/ Auto Diffon 3 Erythrocyte distribution width (RBC) [Ratio] 15.0 % High 10.9-14.2 [facility] Comment on above: Performed By: #### 1 3255146, 9593038, 957045565, 1078839, 5020869 ####[place] [address] [place] [address] Hematocrit (Bld) [Volume fraction] 45.2 % Normal 37.7-49.0 [facility] Comment on above: Performed By: #### 1 9702293, 5753120, 627039822, 5436584, 7009897 ####[place] [address] [place] [address] Hemoglobin (Bld) [Mass/Vol] 14.8 g/dL Normal 13.5-17.5 [facility] Comment on above: Performed By: #### 1 6504447, 3762366, 285044877, 2099619, 9903661 ####[place] [address] [place] [address] MCH (RBC) [Entitic mass] 27.8 pg Normal 27.0-34.0 [facility] Comment on above: Performed By: #### 1 7475085, 4928461, 700305317, 9365032, 3605775 ####[place] [address] [place] [address] MCHC (RBC) [Mass/Vol] 32.7 g/dL Normal 31.4-36.0 [facility] Comment on above: Performed By: #### 1 8689166, 9870893, 344125172, 7463506, 1625129 ####[place] [address] [place] [address] MCV (RBC) [Entitic vol] 85.0 fL Normal 80.0-100.0 [facility] Comment on above: Performed By: #### 1 5878816, 1907208, 668000614, 9853621, 5520765 ####[address] [address] Platelet mean volume (Bld) [Entitic vol] 9.4 fL Normal 6.4-10.8 [facility] Comment on above: Performed By: #### 1 4180763, 3170250, 801232975, 6866147, 1580888 ####[address] [address] Platelets (Bld) [#/Vol] 193.0 E9/L Normal 150.0-500.0 [facility] Comment on above: Performed By: #### 1 2503828, 9336666, 494582706, 5368950, 7271852 ####[address] [address] RBC (Bld) [#/Vol] 5.3 E12/L Normal 4.3-5.9 [facility] Comment on above: Performed By: #### 1 1897043, 5857032, 147936497, 8259075, 0853356 ####[place] [address] [place] [address] WBC corrected for nucl RBC Auto (Bld) [#/Vol] 12.5 E9/L High 4.0-11.0 [facility] Comment on above: Performed By: #### 1 0587174, 2142435, 529318835, 8349240, 4559872 ####[address] [address] CMPon 12-13-2022 Albumin [Mass/Vol] 3.6 g/dL Normal 3.3-5.0 [facility] Comment on above: Performed By: #### 1 0747952, 6923540, 256109011, 9192771, 9368374 ####[facility] [address] [place] [address] Albumin/Globulin (S) [Mass conc ratio] 1.0 Low 1.1-2.2 [facility] Comment on above: Performed By: #### 1 4115088, 8388868, 002105196, 6672509, 4088513 ####[facility] [address] [place] [address] ALP [Catalytic activity/Vol] 49 Int._Unit/L Normal 21-98 [facility] Comment on above: Performed By: #### 1 4280176, 5538413, 486497859, 8150057, 3138853 ####[facility] [address] [place] [address] ALT No additional P-5'-P [Catalytic activity/Vol] 21 Int._Unit/L Normal 6-46 [facility] Comment on above: Performed By: #### 1 8587820, 9224648, 633552917, 0012869, 2449356 ####[facility] [address] [place] [address] Anion gap [Moles/Vol] 16 mmol/L Normal 6-16 [facility] [facility] Comment on above: Performed By: #### 1 [id number], 4725805, [id number], 6046178, 3544530 ####[facility] [address] [place] [address] AST [Catalytic activity/Vol] 21 Int._Unit/L Normal 5-43 [facility] Comment on above: Performed By: #### 1 3028753, 7395491, [id number], 1114137, 3740243 ####[facility] [address] [place] [address] Bilirubin [Mass/Vol] 0.6 mg/dL Normal 0.0-1.1 [facility] Comment on above: Performed By: #### 1 0710145, 8387187, 423763680, 6114220, 9208435 ####[facility] [address] [place] [address] Calcium [Mass/Vol] 9.4 mg/dL Normal 8.9-11.1 [facility] Comment on above: Performed By: #### 1 0750823, 0567218, 343098447, 3500220, 8866557 ####[facility] [address] [place] [address] Chloride [Moles/Vol] 99 mmol/L Low 101-111 [facility] Comment on above: Performed By: #### 1 8343635, 5620000, 799170614, 2178486, 6773233 ####[facility] [address] [place] [facility] [place] [address] CO2 [Moles/Vol] 31 mmol/L Normal 21-31 [facility] Comment on above: Performed By: #### 1 6730181, 9571534, 792749627, 4067484, 0202741 ####[facility] [address] [place] [facility] [place] [address] Creatinine [Mass/Vol] 1.5 mg/dL High 0.5-1.3 [facility] Comment on above: Performed By: #### 1 3256936, 9304235, 896082079, 9471275, 5792582 ####[facility] [address] [place] [address] Globulin (S) [Mass/Vol] 3.7 g/dL Normal 1.4-4.0 F [facility] Comment on above: Performed By: #### 1 0536460, 9379036, 846284656, 9225781, 3002008 ####[facility] [address] [place] [address] Glucose [Mass/Vol] 128 mg/dL Normal 55-199 [facility] Comment on above: Result Comment: If t his glucose result represents a fasting glucose, interpretation should refer to the following reference range: 55-99 mg/dL Performed By: #### 1 5216878, 5202635, 329214008, 9830458, 7919350 ####[facility] [address] [place] [address] Potassium [Moles/Vol] 4.1 mmol/L Normal 3.5-5.3 [facility] Comment on above: Performed By: #### 1 3992118, 6053794, 254639042, 1933190, 9446534 ####[facility] [address] [place] [address] Protein [Mass/Vol] 7.3 g/dL Normal 6.0-7.8 [facility] Comment on above: Performed By: #### 1 2947651, 6238695, 653612416, 2572360, 3859033 ####[facility] [address] [place] [address] Sodium [Moles/Vol] 142 mmol/L Normal 135-145 [facility] Comment on above: Performed By: #### 1 8687052, 9973556, 944622489, 6848339, 6160469 ####[facility] [address] [place] [address] Urea nitrogen [Mass/Vol] 57 mg/dL High 5-21 [facility] Comment on above: Performed By: #### 1 0442607, 4083782, 043622480, 7460810, 6780099 ####[facility] [address] [place] [address] Urea nitrogen/Creatinine [Mass ratio] 38 No Units High 10-20 [facility] Comment on above: Performed By: #### 1 8668805, 2308102, 839372619, 0094310, 3644525 ####[facility] [address] [place] [address] Capillary Glucose POCon 07- Glucose [Mass/Vol] 256 mg/dL High 55-99 [facility] Comment on above: Result Comment: Yazmin bri Meter Performed By: #### 2 73630666 ####[facility] [address] [place] [address] Glucose [Mass/Vol] 152 mg/dL High - [facility] Comment on above: Result Comment: Yazmin bri Meter Performed By: #### 2 77277077 ####[facility] [address] [place] [address] UufP7fxf 12-13-2022 HbA1c (Bld) [Mass fraction] 6.5 % High <=5.9 [facility] Comment on above: Performed By: #### 1 1160248, 4533086, 203614206, 9141581, 3983894 ####[facility] [address] [place] [address] eGFRon 12-13-2022 GFR/1.73 sq M.predicted among non-blacks MDRD (S/P/Bld) [Vol rate/Area] 47 mL/min/1.73 m2 Low >=59 [facility] Comment on above: Order Comment: Order added by Discern Expert. Result Comment: Food Preservation Scientist earnest kidney disease could be indicated at eGFR's of less than 60 mL/min/1.73m2. Kidney failure is indicated at less than 15 mL/min/1.73m2. Performed By: #### 1 7777822, 1701077, 827820686, 0980447, 3110051 ####[facility] [address] [place] [address] Capillary Glucose POCon 11-22 Glucose [Mass/Vol] 212 mg/dL High - [facility] Comment on above: Result Comment: Yazmin bri Meter Performed By: #### 2 75038119 ####[facility] [address]ly[address] [place] [address] Glucose [Mass/Vol] 161 mg/dL High [facility] Comment on above: Result Comment: Yazmin bri Meter Performed By: #### 2 62269643 ####[facility] [address] [place] [address] Capillary Glucose POCon 11-22 Glucose [Mass/Vol] 206 mg/dL [address] Comment on above: Result Comment: Yazmin bri Meter Performed By: #### 2 13535575 ####[facility] [address] [place] [address] Glucose [Mass/Vol] 152 mg/dL [address] Comment on above: Result Comment: Yazmin bri Meter Performed By: #### 2 22058265 ####[facility] [address] [place] [address] Capillary Glucose POCon 11-22 Glucose [Mass/Vol] 140 mg/dL [address] Comment on above: Result Comment: Yazmin bri Meter Performed By: #### 2 96491412 ####[facility] [address] [place] [address] Capillary Glucose POCon 11-21 Glucose [Mass/Vol] 243 mg/dL [address] Comment on above: Result Comment: Yazmin bri Meter Performed By: #### 2 38566791 ####[facility] [address] [place] [address] Glucose [Mass/Vol] 157 mg/dL [address] Comment on above: Result Comment: Yazmin bri Meter Performed By: #### 2 99700572 ####[facility] [address] [place] [address] Capillary Glucose POCon 11-21 Glucose [Mass/Vol] 181 mg/dL [address] Comment on above: Result Comment: Yazmin bri Meter Performed By: #### 2 09231636 ####[facility] [address]uf[address] [place] [address] Capillary Glucose POCon 11-21 Glucose [Mass/Vol] 149 mg/dL [address] Comment on above: Result Comment: Yazmin bri Meter Performed By: #### 2 20532636 ####[facility] [address] [place] [address] Glucose [Mass/Vol] 164 mg/dL High 55-99 [facility] Comment on above: Result Comment: Yazmin bri Meter Performed By: #### 2 04243366 ####[facility] [address] [place] [address] Capillary Glucose POCon 11-21 Glucose [Mass/Vol] 265 mg/dL High 55-99 [facility] Comment on above: Result Comment: Yazmin bri Meter Performed By: #### 2 17319771 ####[facility] [address] [place] [address] Glucose [Mass/Vol] 129 mg/dL High 55-99 [facility] Comment on above: Result Comment: Yazmin bri Meter Performed By: #### 2 87700756 ####[facility] [address] [place] [address] Family Medicine Office/Clini c Noteon 12-06-2022 Family Medicine Office/Clinic Note Normal [facility] Comment on above: Result Comment: Elec tronically Signed By: SHAISTA POTTS, Donta\.br\Date and Time Signed: 12/06/22 21:11 EDT Capillary Glucose POCon 11-21 Glucose [Mass/Vol] 196 mg/dL High 55-99 [facility] Comment on above: Result Comment: Yazmin bri Meter Performed By: #### 2 72968865 ####[facility] [address]wot[address]yy[address] [place] [address] Glucose [Mass/Vol] 159 mg/dL High 55-99 [facility] Comment on above: Result Comment: Yazmin bri Meter Performed By: #### 2 83307560 ####[facility] [address] [place] [address] Capillary Glucose POCon 11-21 Glucose [Mass/Vol] 195 mg/dL High 55-99 [facility] Comment on above: Result Comment: Gareth guerrero RN/ Performed By: #### 2 85324863 ####[facility] [address] [place] [address] Insurance Correspondence Off ice12-04-2022 Insurance Correspondence Office [id number]# 1.00CD:127 Normal [facility] Physician Orderon 12-03-2022 Physician Order [id number]# 1.00CD:127 Normal [facility] CHEMISTRYOrdered By: Lab ROP User on 12-02-2022 Glucose [Mass/Vol] 227 mg/dL High 55 - 99 mg/dL [facility] POC Subsection Comment on above: Result Comment: Gareth GARDINER POC Device SN [id number] Invalid Interpretation Code FT POC Subsection POC User ID [id number] Invalid Interpretation Code [facility] POC Subsection POC Username KINGSTON JAMISON Invalid Interpretation Code [facility] POC Subsection Glucose [Mass/Vol] 127 mg/dL High 55 - 99 mg/dL [facility] POC Subsection Comment on above: Result Comment: Gareth GARDINER POC Device SN [id number] Invalid Interpretation Code FT POC Subsection POC User ID [id number] Invalid Interpretation Code [facility] POC Subsection POC Username TOYIN REYNOLDS Invalid Interpretation Code [facility] POC Subsection Capillary Glucose POCon 11-21 Glucose [Mass/Vol] 227 mg/dL High 55-99 [facility] Comment on above: Result Comment: Gareth GARDINER Performed By: #### 2 [id number] ####[facility] [address] [place] [address] Glucose [Mass/Vol] 127 mg/dL High 55-99 [facility] Comment on above: Result Comment: Gareth GARDINER Performed By: #### 2 52808442 ####[facility] [address] [place] [address] Coding Queryon 12-02-2022 Coding Query Normal [facility] Discharge Note-Nursingon Discharge Note-Nursing Normal [facility] Inpatient Clinical Summaryon 12-02-2022 Inpatient Clinical Summary Normal [facility] Inpatient Patient Summaryon 12-02-2022 Inpatient Patient Summary Normal [facility] Insurance Correspondence Off ice12-02-2022 Insurance Correspondence Office [id number]#1. 00CD:127 Normal [facility] Interdisciplinary Note - Santosh e Manageron 12-02-2022 Interdisciplinary Note - Software Engineer Kernel [facility] Comment on above: Result Comment: Elec tronically Signed By: Dank HAYDEN, Lisa\.br\Date and Time Signed: 12/02/22 09:31 EDT Monitor Recordon 12-02-2022 Monitor Record [id number]# 1.00CD:127 Normal [facility] Physician Orderon 12-02-2022 Physician Order [id number]# 1.00CD:127 Normal [facility] Progress Note-Physicianon Progress Note-Physician [facility] Comment on above: Result Comment: Elec tronically Signed By: Adeline COLEMAN\.br\Date and Time Signed: 12/01/22 18:43 EDT\.br\Electronically Co-Signed By: Juan Hdz DO\.br\Date and Time Co-Signed: 12/02/22 07:20 EDT Transfer Documentson 023 Transfer Documents [id number]# 1.00CD:127 Normal [facility] BMPon 12-01-2022 Anion gap [Moles/Vol] 13 mmol/L Normal 6-16 [facility] Comment on above: Performed By: #### 1 8466389, 1482804, 2166310, 4511727 ####[facility] [address] [place] [address] Calcium [Mass/Vol] 9.1 mg/dL Normal 8.9-11.1 [facility] Comment on above: Performed By: #### 1 1928821, 1098307, 7943622, 7484358 ####[facility] [address] [place] [address] Chloride [Moles/Vol] 102 mmol/L Normal 101-111 [facility] Comment on above: Performed By: #### 1 1520874, 9091613, 9469584, 8599854 ####[facility] [address] [place] [address] CO2 [Moles/Vol] 28 mmol/L Normal 21-31 [facility] Comment on above: Performed By: #### 1 2119543, 4203185, 3397637, 5205628 ####[facility] [address] [place] [address] Creatinine [Mass/Vol] 1.3 mg/dL Normal 0.5-1.3 [facility] Comment on above: Performed By: #### 1 1047056, 5350211, 7920848, 9346331 ####[facility] [address] [place] [address] Glucose [Mass/Vol] 97 mg/dL Normal 55-199 [facility] Comment on above: Result Comment: If t his glucose result represents a fasting glucose, interpretation should refer to the following reference range: 55-99 mg/dL Performed By: #### 1 7345805, 3674658, 6915656, 3162058 ####[facility] [address] [place] [address] Potassium [Moles/Vol] 4.6 mmol/L Normal 3.5-5.3 [facility] Comment on above: Performed By: #### 1 2212091, 1055578, 2634859, 2288116 ####[facility] [address] [place] [address] Sodium [Moles/Vol] 138 mmol/L Normal 135-145 [facility] Comment on above: Performed By: #### 1 2070793, 7729413, 8564469, 6169466 ####[facility] [address] [place] [address] Urea nitrogen [Mass/Vol] 24 mg/dL High 5-21 [facility] Comment on above: Performed By: #### 1 0516647, 7785810, 7601360, 3423868 ####[facility] [address] [place] [address] Urea nitrogen/Creatinine [Mass ratio] 18 No Units Normal 10-20 [facility] Comment on above: Performed By: #### 1 9561084, 5105720, 2162762, 3729909 ####[facility] [address] [place] [address] CHEMISTRYOrdered By: Lab ROP User on 12-01-2022 Glucose [Mass/Vol] 114 mg/dL High 55 - 99 mg/dL [facility] POC Subsection Comment on above: Result Comment: Gareth guerrero RN/ POC Device SN [id number] Invalid Interpretation Code [facility] POC Subsection POC User ID [id number] Invalid Interpretation Code [facility] POC Subsection POC Username [email or web address] Invalid Interpretation Code [facility] POC Subsection CHEMISTRYOrdered By: SYSTEM SYSTEM on 12-01-2022 Anion gap [Moles/Vol] 13 mmol/L Normal 6 - 16 mEq/L [facility] Remisol Calcium [Mass/Vol] 9.1 mg/dL Normal 8.9 - 11. 1 mg/dL FT [facility] Chloride [Moles/Vol] 102 mmol/L Normal 101 - 1 11 mmol/L FT Rem[facility] CK [Catalytic activity/Vol] 211 [iU]/d Normal 14 - 261 Int._Unit/L [facility] Remisol CO2 [Moles/Vol] 28 mmol/L Normal 21 - 31 mmol/L [facility] Remisol Creatinine [Mass/Vol] 1.3 mg/dL Normal 0.5 - 1.3 mg/dL [facility] Remisol GFR/1.73 sq M.predicted among non-blacks MDRD (S/P/Bld) [Vol rate/Area] 56 mL/min/1.73 m2 Low >=59mL/min/ 1.73 m2 [facility] Chem S Glucose [Mass/Vol] 97 mg/dL Normal 55 - 199 mg/dL [facility] Magnesium [Mass/Vol] 2.1 mg/dL Normal 1.3 - 2 .4 mg/dL [facility] Potassium [Moles/Vol] 4.6 mmol/L Normal 3.5 - 5.3 mmol/L [facility] Sodium [Moles/Vol] 138 mmol/L Normal 135 - 145 mmol/L [facility] Urea nitrogen [Mass/Vol] 24 mg/dL High 5 - 21 mg/dL [facility] Remisol Urea nitrogen/Creatinine [Mass ratio] 18 mg/mg Normal 10 - 20 [facility] Remisol CKon 12-01-2022 CK [Catalytic activity/Vol] 211 Int._Unit/L Normal 14-261 [facility] Comment on above: Performed By: #### 1 9842055, 4742912, 8001982, 6394766 ####[facility] [address] [place] [address] Capillary Glucose POCon 11-21 Glucose [Mass/Vol] 114 mg/dL High 55-99 [facility] Comment on above: Result Comment: Gareth GARDINER Performed By: #### 2 60163556 ####[facility] [address] [place] [address] Glucose [Mass/Vol] 193 mg/dL High 55-99 [facility] Comment on above: Result Comment: Gareth GARDINER Performed By: #### 2 68780232 ####[facility] [address] [place] [address] Glucose [Mass/Vol] 203 mg/dL High 55-99 [facility] Comment on above: Result Comment: Gareth GARDINER Performed By: #### 2 92001473 ####[facility] [address] [place] [address] Glucose [Mass/Vol] 110 mg/dL High 55-99 [facility] Comment on above: Result Comment: Gareth GARDINER Performed By: #### 2 30724334 ####[facility] [address] [place] [address] Interdisciplinary Note - Santosh e Manageron 12-01-2022 Interdisciplinary Note - Software Engineer Kernel Pt is asleep in bed, no family present. Pt is accepted to [facility] side, pending precert at this time. Contact information provided and white board updated, CRM following Normal [facility] Comment on above: Result Comment: Elec tronically Signed By: Dank HAYDEN, Lisa\.br\Date and Time Signed: 12/01/22 08:20 EDT Ionized Calciumon 12-01-2022 Calcium.ionized ISE [Mass/Vol] 4.8 mg/dL Invalid Interpretation Code 4.5-5.6 [facility] Comment on above: Result Comment: Perf ormed at: [facility] [address] [place], [place] [id number] PhD Michael Cortes Performed By: #### 2 209888, 8308194, 3976540, 43975439, 23583128, 7398706, 75891036, 1445125, 86796888, 446533256, 4596595, 4204359 ####[facility] [address] [place] [address] Magnesiumon 12-01-2022 Magnesium [Mass/Vol] 2.1 mg/dL Normal 1.3-2.[address] [facility] Comment on above: Performed By: #### 1 6698070, 2801987, 8407949, 6804457 ####[facility] [address] [place] [address] Progress Note-Physicianon Progress Note-Physician Normal F [facility] Comment on above: Result Comment: Elec tronically Signed By: Pao POTTS, Lizeth\.br\Date and Time Signed: 12/01/22 12:41 EDT XR Abdomen 1 Viewon 12-02-19 23 XR Abdomen 1 View Normal [facility] eGFRon 12-01-2022 GFR/1.73 sq M.predicted among non-blacks MDRD (S/P/Bld) [Vol rate/Area] 56 mL/min/1.73 m2 Low >=59 [facility] Comment on above: Order Comment: Order added by Discern Expert. Result Comment: Food Preservation Scientist earnest kidney disease could be indicated at eGFR's of less than 60 mL/min/1.73m2. Kidney failure is indicated at less than 15 mL/min/1.73m2. Performed By: #### 1 9444600, 2662919, 2922666, 7834322 ####[facility] [address] [place] [address] BMPon 11-30-2022 Anion gap [Moles/Vol] 11 mmol/L Normal 6-16 [facility] Comment on above: Performed By: #### 2 103417, 6286502, 91741728 ####[facility] [address] [place] [address] Calcium [Mass/Vol] 9.0 mg/dL Normal 8.9-11.1 [facility] Comment on above: Performed By: #### 2 349401, 0189183, 52591259 ####[facility] [address] [place] [address] Chloride [Moles/Vol] 102 mmol/L Normal 101-111 [facility] Comment on above: Performed By: #### 2 787533, 0386070, 57134527 ####[facility] [address] [place] [address] CO2 [Moles/Vol] 31 mmol/L Normal 21-31 [facility] Comment on above: Performed By: #### 2 087693, 5188046, 49412034 ####[facility] [address] [place] [address] Creatinine [Mass/Vol] 1.1 mg/dL Normal 0.5-1.3 [facility] Comment on above: Performed By: #### 2 225522, 9639349, 32378520 ####[facility] [address] [place] [address] Glucose [Mass/Vol] 114 mg/dL Normal 55-199 [facility] Comment on above: Result Comment: If t his glucose result represents a fasting glucose, interpretation should refer to the following reference range: 55-99 mg/dL Performed By: #### 2 679695, 5424900, 30818826 ####[facility] [address] [place] [address] Potassium [Moles/Vol] 3.4 mmol/L Low 3.5-5.3 [facility] Comment on above: Performed By: #### 2 237427, 8365181, 63509151 ####[facility] [address] [place] [address] Sodium [Moles/Vol] 141 mmol/L Normal 135-145 [facility] Comment on above: Performed By: #### 2 927658, 0745322, 55868236 ####[facility] [address]ff[address] [place] [address] Urea nitrogen [Mass/Vol] 23 mg/dL High 5-21 [facility] Comment on above: Performed By: #### 2 331361, 5893531, 35128429 ####[facility] [address] [place] [address] Urea nitrogen/Creatinine [Mass ratio] 21 No Units High 10-20 [facility] Comment on above: Performed By: #### 2 789929, 7965750, 46446397 ####[facility] [address] [place] [address] CHEMISTRYOrdered By: SYSTEM SYSTEM on 11-30-2022 Anion gap [Moles/Vol] 11 mmol/L Normal 6 - 16 mEq/L [facility] Remisol Calcium [Mass/Vol] 9.0 mg/dL Normal 8.9 - 11. 1 mg/dL FT [facility] Chloride [Moles/Vol] 102 mmol/L Normal 101 - 1 11 mmol/L [facility] Remisol CO2 [Moles/Vol] 31 mmol/L Normal 21 - 31 mmol/L [facility] Remisol Creatinine [Mass/Vol] 1.1 mg/dL Normal 0.5 - 1.3 mg/dL [facility] Remisol GFR/1.73 sq M.predicted among non-blacks MDRD (S/P/Bld) [Vol rate/Area] 69 mL/min/1.73 m2 Normal >=59mL/min/ 1.73 m2 [facility] Chem S Glucose [Mass/Vol] 114 mg/dL Normal 55 - 199 mg/dL FT [facility] Magnesium [Mass/Vol] 1.8 mg/dL Normal 1.3 - 2 .4 mg/dL FT [facility] Potassium [Moles/Vol] 3.4 mmol/L Low 3.5 - 5.3 mmol/L [facility] Remisol Sodium [Moles/Vol] 141 mmol/L Normal 135 - 145 mmol/L [facility] Remisol Urea nitrogen [Mass/Vol] 23 mg/dL High 5 - 21 mg/dL [facility] Remisol Urea nitrogen/Creatinine [Mass ratio] 21 mg/mg High 10 - 20 [facility] Remisol Capillary Glucose POCon 11-21 Glucose [Mass/Vol] 194 mg/dL High 55-99 [facility] Comment on above: Result Comment: Gareth GARDINER Performed By: #### 2 [id number] ####[facility] [address] [place] [address] Glucose [Mass/Vol] 96 mg/dL Normal 55-99 [facility] Comment on above: Performed By: #### 2 [id number] ####[facility] [address]yy[address] [place] [address] Glucose [Mass/Vol] 130 mg/dL High 55-99 [facility] Comment on above: Result Comment: Gareth GARDINER Performed By: #### 2 43977488 ####[facility] [address] [place] [address] Glucose [Mass/Vol] 113 mg/dL High 55-99 [facility] Comment on above: Result Comment: Gareth GARDINER Performed By: #### 2 43964667 ####[facility] [address] [place] [address] Echo Transthoracic Completeo n 11-30-2022 Echo Transthoracic Complete Normal [facility] Insurance Correspondence Off iceon 11-30-2022 Insurance Correspondence Office [id number]#1 .00CD:127 Normal [facility] Interdisciplinary Note - Santosh e Manageron 11-30-2022 Interdisciplinary Note - Software Engineer Kernel Normal [facility] Comment on above: Result Comment: Elec tronically Signed By: Dank HAYDEN, Lisa\.candice\Date and Time Signed: 11/30/22 10:48 EDT Magnesiumon 11-30-2022 Magnesium [Mass/Vol] 1.8 mg/dL Normal 1.3-2.[address] [facility] Comment on above: Performed By: #### 2 226954, 6453219, 00676165 ####[facility] [address] [place] [address] Message from Medicareon 11-21 Message from Medicare [id number]#1 .00CD:127 Normal [facility] Progress Note-Physicianon Progress Note-Physician Normal [facility] Comment on above: Result Comment: Elec tronically Signed By: Tino POTTS, Joanie\.br\Date and Time Signed: 11/30/22 15:13 EDT Progress Note-Physician Normal [facility] Comment on above: Result Comment: Elec tronically Signed By: Pao PTOTS, Lizeth\.br\Date and Time Signed: 11/30/22 14:52 EDT UA With Cult Reflexon 2022 Bacteria LM Ql (Urine sed) TRACE Normal Trace [facility] Comment on above: Order Comment: Urina ry Catheter Insertion triggered Urinalysis With Culture Reflex order by discern. Performed By: #### 1 [id number] ####[facility] [address] [place] [address] Bilirubin Ql (U) Negative Normal Negative [facility] Comment on above: Order Comment: Urina ry Catheter Insertion triggered Urinalysis With Culture Reflex order by discern. Performed By: #### 1 [id number] ####[facility] [address] [place] [address] Clarity (U) CLEAR Normal Clear [facility] Comment on above: Order Comment: Urina ry Catheter Insertion triggered Urinalysis With Culture Reflex order by discern. Performed By: #### 1 8328296 ####[facility] [address] [place] [address] Color (U) YELLOW Normal Yellow [facility] Comment on above: Order Comment: Urina ry Catheter Insertion triggered Urinalysis With Culture Reflex order by discern. Performed By: #### 1 [id number] ####[facility] [address] [place] [address] Epithelial cells.squamous LM.HPF (Urine sed) [#/Area] 0-2 Normal 0-2 [facility] Comment on above: Order Comment: Urina ry Catheter Insertion triggered Urinalysis With Culture Reflex order by discern. Performed By: #### 1 [id number] ####[facility] [address] [place] [address] Glucose Test strip (U) [Mass/Vol] Negative Normal Negative [facility] Comment on above: Order Comment: Urina ry Catheter Insertion triggered Urinalysis With Culture Reflex order by discern. Performed By: #### 1 [id number] ####[address] [address] Hemoglobin Ql (U) Negative Normal Negative [facility] Comment on above: Order Comment: Urina ry Catheter Insertion triggered Urinalysis With Culture Reflex order by discern. Performed By: #### 1 [id number] ####[address] [address] Ketones (U) [Mass/Vol] Negative Normal Negative [facility] Comment on above: Order Comment: Urina ry Catheter Insertion triggered Urinalysis With Culture Reflex order by discern. Performed By: #### 1 [id number] ####[address] [address] [place].plasma/[place].R BC (Bld) [Mass ratio] 0-3 Normal 0-3 [facility] Comment on above: Order Comment: Urina ry Catheter Insertion triggered Urinalysis With Culture Reflex order by discern. Performed By: #### 1 [id number] ####[facility] [address] [place] [address] Nitrite Ql (U) Negative Normal Negative [facility] Comment on above: Order Comment: Urina ry Catheter Insertion triggered Urinalysis With Culture Reflex order by discern. Performed By: #### 1 [id number] ####[address] [address] pH (U) 6.0 [pH] Invalid Interpretation Code 5.0-9.0 [facility] Comment on above: Order Comment: Urina ry Catheter Insertion triggered Urinalysis With Culture Reflex order by discern. Performed By: #### 1 [id number] ####[address] [address] Protein (U) [Mass/Vol] Negative Normal Negative [facility] Comment on above: Order Comment: Urina ry Catheter Insertion triggered Urinalysis With Culture Reflex order by discern. Performed By: #### 1 [id number] ####[place] [address] Specific gravity (U) [Rel density] 1.010 Invalid Interpretation Code 1.005-1.030 [facility] Comment on above: Order Comment: Urina ry Catheter Insertion triggered Urinalysis With Culture Reflex order by discern. Performed By: #### 1 [id number] ####[address] [address] Type of Urine collection method Red Normal [facility] Comment on above: Order Comment: Urina ry Catheter Insertion triggered Urinalysis With Culture Reflex order by discern. Performed By: #### 1 [id number] ####[address] [address] Urobilinogen Qn (U) 0.2 {Lei'U}/dL Normal 0.0-1.0 [facility] Comment on above: Order Comment: Urina ry Catheter Insertion triggered Urinalysis With Culture Reflex order by discern. Performed By: #### 1 [id number] ####[place] 6689457 WBC Auto Ql (U) Negative Normal Negative [facility] Comment on above: Order Comment: Urina ry Catheter Insertion triggered Urinalysis With Culture Reflex order by discern. Performed By: #### 1 [id number] ####[place] 6689457 WBC casts LM.LPF (Urine sed) [#/Area] 0-3 Normal [facility] Comment on above: Order Comment: Urina ry Catheter Insertion triggered Urinalysis With Culture Reflex order by discern. Performed By: #### 1 [id number] ####[facility] [address] [place] [address] WBC LM.HPF (Urine sed) [#/Area] 0-5 Normal 0-5 [facility] Comment on above: Order Comment: Urina ry Catheter Insertion triggered Urinalysis With Culture Reflex order by discern. Performed By: #### 1 [id number] ####[facility] [address] [place] [address] URINALYSISOrdered By: Houston Castillo on 11-30-2022 Bacteria LM Ql (Urine sed) Trace /HPF Normal Trace/HPF [facility] UA Auto SS Bilirubin Ql (U) Negative (11/30/22 11:00 AM) Normal Negative [facility] UA Auto SS Clarity (U) Clear (11/30/22 11:00 AM) Normal Clear [facility] UA Auto SS Color (U) Yellow (11/30/22 11:00 AM) Normal Yellow [facility] UA Auto SS Epithelial cells.squamous LM.HPF (Urine sed) [#/Area] 0-2 /HPF Normal 0-2/HPF [facility] UA Aut o SS Glucose Test strip (U) [Mass/Vol] Negative (11/30/22 11:00 AM) Normal Negative [facility] UA Auto SS Hemoglobin Ql (U) Negative (11/30/22 11:00 AM) Normal Negative [facility] UA Auto SS Ketones (U) [Mass/Vol] Negative (11/30/22 11:00 AM) Normal Negative [facility] UA Auto SS [place].plasma/[place].R BC (Bld) [Mass ratio] 0-3 /HPF Normal 0-3/HPF [facility] UA Au to SS Nitrite Ql (U) Negative (11/30/22 11:00 AM) Normal Negative [facility] UA Auto SS pH (U) 6.0 *NA* (11/30/22 11:00 AM) Invalid Interpretation Code 5.0 - 9.0 [facility] UA Auto SS Protein (U) [Mass/Vol] Negative (11/30/22 11:00 AM) Normal Negative [facility] UA Auto SS Specific gravity (U) [Rel density] 1.010 *NA* (11/30/22 11:00 AM) Invalid Interpretation Code 1.005 - 1.030 [facility] UA Auto SS UA Spec Desc Red (11/30/22 11:00 AM) Normal [facility] UA Auto SS Urobilinogen Qn (U) 0.6024494 {Lei'U}/dL Normal 0.0 - 1.0 EU/dL [facility] UA Auto SS WBC Auto Ql (U) Negative (11/30/22 11:00 AM) Normal Negative [facility] UA Auto SS WBC casts LM.LPF (Urine sed) [#/Area] 0-3 (11/30/22 11:00 AM) Normal [facility] UA Auto SS WBC LM.HPF (Urine sed) [#/Area] 0-5 /HPF Normal 0-5/HPF [facility] UA Auto SS eGFRon 11-30-2022 GFR/1.73 sq M.predicted among non-blacks MDRD (S/P/Bld) [Vol rate/Area] 69 mL/min/1.73 m2 Normal >=59 [facility] Comment on above: Order Comment: Order added by Discern Expert. Result Comment: Food Preservation Scientist earnest kidney disease could be indicated at eGFR's of less than 60 mL/min/1.73m2. Kidney failure is indicated at less than 15 mL/min/1.73m2. Performed By: #### 2 161319, 5973650, [id number] ####[facility] [address] [place] [address] Auto Diffon 11-29-2022 Basophils/100 WBC (Bld) 0.5 % Normal 0.0-2.0 [facility] Comment on above: Order Comment: Order Added by Discern Expert. Performed By: #### 2 375032, 7582490, 4234310, 41844152, 18124848, 7620740, 29569857, 1653866, 13774948, 360621818, 2860187, 3075432 ####[facility] [address] [place] [address] Basophils/Leukocytes Auto (Bld) [Pure # fraction] 0.0 E9/L Normal 0.0-0.2 [facility] Comment on above: Order Comment: Order Added by Discern Expert. Performed By: #### 2 836746, 2619120, 0930976, 34533432, 84447157, 8796898, 18690343, 8119266, 57073622, 897272888, 8790019, 0904857 ####[facility] [address] [place] [address] Eosinophils/100 WBC (Bld) 8.4 % High 0.0-8.0 [facility] Comment on above: Order Comment: Order Added by Discern Expert. Performed By: #### 2 902105, 4655043, 5250095, 63353409, 54176387, 2981108, 57982686, 5329550, 88666189, 224678917, 6470134, 5596116 ####[facility] [address] [place] [address] Eosinophils/Leukocytes Auto (Bld) [Pure # fraction] 0.6 E9/L High 0.0-0.5 [facility] Comment on above: Order Comment: Order Added by Discern Expert. Performed By: #### 2 594561, 9362462, 4944743, 12665833, 99528605, 0723658, 33005658, 8435462, 27663845, 826050727, 2919529, 4283135 ####[facility] [address] [place] [address] Lymphocytes/100 WBC (Bld) 15.8 % Normal 14.0-50.0 [facility] Comment on above: Order Comment: Order Added by Discern Expert. Performed By: #### 2 899196, 5394322, 1659164, 38284486, 76856647, 7031958, 37320483, 8291107, 57668250, 438586342, 4843704, 1822954 ####[place] [address] [place] [address] Lymphocytes/Leukocytes Auto (Bld) [Pure # fraction] 1.2 E9/L Normal 1.0-4.0 [facility] Comment on above: Order Comment: Order Added by Discern Expert. Performed By: #### 2 517673, 7046972, 0048109, 63395637, 69334538, 6063545, 76285461, 8272273, 91795832, 270266015, 0612930, 5866175 ####[facility] [address] [place] [address] Monocytes/100 WBC (Bld) 8.4 % Normal 4.0-14.0 [facility] Comment on above: Order Comment: Order Added by Discern Expert. Performed By: #### 2 065144, 9020992, 5114189, 27991822, 09366025, 3697665, 74890515, 9038923, 49443907, 923067473, 9193335, 3893174 ####[facility] [address] [place] [address] Monocytes/Leukocytes Auto (Bld) [Pure # fraction] 0.6 E9/L Normal 0.2-1.0 [facility] Comment on above: Order Comment: Order Added by Discern Expert. Performed By: #### 2 681051, 9939338, 4169529, 57560923, 54480889, 2069599, 98051236, 9334501, 98145528, 792942186, 6257184, 4017428 ####[facility] [address] [place] [address] Neutrophils/100 WBC (Bld) 66.9 % Normal 36.0-75.0 [facility] Comment on above: Order Comment: Order Added by Discern Expert. Performed By: #### 2 653180, 9360096, 6920960, 45167102, 04168752, 2062552, 03999891, 4401198, 21793003, 902855706, 1113001, 1208433 ####[facility] [address] [place] [address] Neutrophils/Leukocytes Auto (Bld) [Pure # fraction] 5.0 E9/L Normal 2.0-7.5 [facility] Comment on above: Order Comment: Order Added by Discern Expert. Performed By: #### 2 328458, 7938811, 3879260, 94323490, 08664478, 5251389, 66868146, 8018507, 20918740, 861562584, 2975530, 4547969 ####[facility] [address] [place] [address] BMPon 11-29-2022 Anion gap [Moles/Vol] 13 mmol/L Normal 6-16 [facility] Comment on above: Performed By: #### 2 692563, 0714142, 2529411, 92634342, 15848340, 7160727, 50459793, 4420855, 24235965, 141349950, 8508333, 5050805 ####[facility] [address] [place] [address] Calcium [Mass/Vol] 9.1 mg/dL Normal 8.9-11.1 [facility] Comment on above: Performed By: #### 2 234576, 1233321, 4045250, 13909763, 79087690, 0466998, 66938722, 5867032, 08107422, 421987272, 9201168, 8924046 ####[facility] [address] [place] [address] Chloride [Moles/Vol] 102 mmol/L Normal 101-111 [facility] Comment on above: Performed By: #### 2 706222, 6666245, 7848997, 85622234, 87813835, 4292966, 01886151, 8478478, 47446643, 951629571, 5285819, 9064797 ####[facility] [address] [place] [address] CO2 [Moles/Vol] 29 mmol/L Normal 21-31 [facility] Comment on above: Performed By: #### 2 499050, 9363103, 6148856, 36471782, 57675996, 2505001, 21405261, 3736370, 91411819, 399127742, 3710118, 4453201 ####[facility] [address] [place] [address] Creatinine [Mass/Vol] 1.1 mg/dL Normal 0.5-1.3 [facility] Comment on above: Performed By: #### 2 059033, 2655126, 0556244, 19936286, 96031255, 8560264, 55677036, 5695683, 53999547, 476554676, 8769690, 9976168 ####[facility] [address] [place] [address] Glucose [Mass/Vol] 95 mg/dL Normal 55-199 [facility] Comment on above: Result Comment: If t his glucose result represents a fasting glucose, interpretation should refer to the following reference range: 55-99 mg/dL Performed By: #### 2 592991, 1093679, 0698497, 71656293, 52754928, 3871909, 15910209, 0955027, 21538898, 015053097, 0515276, 4551414 ####[facility] [address] [place] [address] Potassium [Moles/Vol] 3.9 mmol/L Normal 3.5-5.3 [facility] Comment on above: Performed By: #### 2 395341, 8552475, 8607821, 68275157, 10911192, 9097719, 74692582, 4400448, 89906682, 616025456, 6197648, 6033042 ####[facility] [address] [place] [address] Sodium [Moles/Vol] 140 mmol/L Normal 135-145 [facility] Comment on above: Performed By: #### 2 980637, 8508353, 6273173, 66646564, 81595070, 7901803, 00322951, 5547132, 07001922, 493317641, 1340603, 7905847 ####[facility] [address] [place] [address] Urea nitrogen [Mass/Vol] 16 mg/dL Normal 5-21 [facility] Comment on above: Performed By: #### 2 511635, 6995154, 8444471, 38649416, 53213600, 9875121, 64126694, 6190756, 97785284, 034860826, 8943056, 0777201 ####[facility] [address] [place] [address] Urea nitrogen/Creatinine [Mass ratio] 14 No Units Normal 10-20 [facility] Comment on above: Performed By: #### 2 327217, 8195453, 7069686, 09531400, 50971515, 8200641, 15049921, 9702974, 29475029, 939657112, 8367477, 5246351 ####[facility] [address] [place] [address] BNPon 11-29-2022 Natriuretic peptide B (Bld) [Mass/Vol] 855 pg/mL High 5-80 [facility] Comment on above: Performed By: #### 2 500383, 8926892, 1357704, 48258866, 62561827, 5361794, 20758615, 6393782, 22002852, 184300211, 1911576, 3074127 ####[facility] [address] [place] [address] CBC w/ Auto Diffon 3 Erythrocyte distribution width (RBC) [Ratio] 14.9 % High 10.9-14.2 [facility] Comment on above: Performed By: #### 2 851141, 5384686, 9563593, 66652647, 40412307, 9554082, 18350142, 9978576, 36958274, 102715367, 0132309, 4370368 ####[facility] [address] [place] [address] Hematocrit (Bld) [Volume fraction] 38.1 % Normal 37.7-49.0 [facility] Comment on above: Performed By: #### 2 795678, 2715591, 6581102, 39335924, 98325174, 7469846, 39391157, 3198660, 22766028, 236203218, 0095172, 5262821 ####[facility] [address] [place] [address] Hemoglobin (Bld) [Mass/Vol] 12.8 g/dL Low 13.5-17.5 [facility] Comment on above: Performed By: #### 2 738684, 8422266, 1542822, 04413036, 14464637, 0994944, 82786344, 2085528, 59150654, 603328449, 4988707, 0857115 ####[facility] [address] [place] [address] MCH (RBC) [Entitic mass] 29.0 pg Normal 27.0-34.0 [facility] Comment on above: Performed By: #### 2 035388, 4664903, 5429860, 89747588, 56383416, 0583133, 57568071, 4585534, 58500115, 470047723, 9221263, 3536194 ####[address] [address] MCHC (RBC) [Mass/Vol] 33.7 g/dL Normal 31.4-36.0 [facility] Comment on above: Performed By: #### 2 152385, 2361212, 4499106, 71192909, 59253567, 7157400, 33432314, 0348177, 63710285, 085747130, 9372648, 6944244 ####[address] [address] MCV (RBC) [Entitic vol] 86.1 fL Normal 80.0-100.0 [facility] Comment on above: Performed By: #### 2 106675, 7075892, 2062052, 52852571, 78525447, 6233694, 87872113, 1290333, 04296391, 755191584, 5970806, 3871721 ####[facility] [address] [place] [address] Platelet mean volume (Bld) [Entitic vol] 10.9 fL High 6.4-10.8 [facility] Comment on above: Performed By: #### 2 179927, 1199061, 9858269, 83420746, 43109753, 4746669, 43547783, 3913413, 68711223, 409806406, 5651464, 0070899 ####[facility] [address] [place] [address] Platelets (Bld) [#/Vol] 189.0 E9/L Normal 150.0-500.0 [facility] Comment on above: Performed By: #### 2 795490, 9494235, 0801795, 01358712, 72749708, 9458451, 33033509, 4626327, 61491954, 986080621, 6956792, 5793138 ####[address] [address] RBC (Bld) [#/Vol] 4.4 E12/L Normal 4.3-5.9 [facility] Comment on above: Performed By: #### 2 455701, 9589072, 9160271, 13456141, 85049123, 1736575, 84214106, 3300309, 09105778, 255739218, 5120664, 5120098 ####[facility] [address] [place] [address] WBC corrected for nucl RBC Auto (Bld) [#/Vol] 7.4 E9/L Normal 4.0-11.0 [facility] Comment on above: Performed By: #### 2 273651, 8279969, 7287138, 55206280, 42614926, 6244876, 58436100, 6259870, 10424812, 993824102, 3255066, 0569190 ####[facility] [address] [place] [address] CHEMISTRYOrdered By: SYSTEM SYSTEM on 11-29-2022 Albumin [Mass/Vol] 3.6 g/dL Normal 3.3 - 5.0 gm/dL [facility] Remisol Albumin/Globulin [Mass ratio] 1.2 {ratio} Normal 1.1 - 2.2 [facility] Remisol ALP [Catalytic activity/Vol] 40 [iU]/d Normal 21 - 98 Int._Unit/L [facility] Remisol ALT No additional P-5'-P [Catalytic activity/Vol] 17 [iU]/d Normal 6 - 46 Int._Unit/L [facility] Remisol Anion gap [Moles/Vol] 13 mmol/L Normal 6 - 16 mEq/L [facility] Remisol AST [Catalytic activity/Vol] 33 [iU]/d Normal 5 - 43 Int._Unit/L [facility] Remisol Bilirubin [Mass/Vol] 1.1 mg/dL Normal 0.0 - 1 .1 mg/dL [facility] Remisol Bilirubin.direct [Mass/Vol] 0.2 mg/dL Normal 0.1 - 0.4 mg/dL [facility] Remisol Bilirubin.indirect [Mass or moles/Vol] 0.9 mg/dL Normal 0.1 - 0.9 mg/dL [facility] Remisol Calcium [Mass/Vol] 9.1 mg/dL Normal 8.9 - 11. 1 mg/dL [facility]isol Chloride [Moles/Vol] 102 mmol/L Normal 101 - 1 11 mmol/L [facility] Cholesterol [Mass/Vol] 114 mg/dL Low 120 - 200 mg/dL [facility]isol Cholesterol in HDL [Mass/Vol] 50 mg/dL Invalid Interpretation Code [facility] Remisol Cholesterol in LDL [Mass/Vol] 43 mg/dL Normal <=129mg/dL [facility] Remisol Cholesterol in VLDL [Mass/Vol] 14 mg/dL Normal 7 - 40 mg/dL [facility] Remisol CK [Catalytic activity/Vol] 1096 [iU]/d Invalid Interpretation Code 14 - 261 Int._Unit/L [facility] Comment on above: Result Comment: Crit ical Result verified by repeat analysis\Critical Result [id number] Called to MANAS BARBA AT by AMY JOHNSON and read back for confirmation at 11/29/2022 06:40:15 CO2 [Moles/Vol] 29 mmol/L Normal 21 - 31 mmol/L [facility] Remisol Creatinine [Mass/Vol] 1.1 mg/dL Normal 0.5 - 1.3 mg/dL [facility] Remisol GFR/1.73 sq M.predicted among non-blacks MDRD (S/P/Bld) [Vol rate/Area] 69 mL/min/1.73 m2 Normal >=59mL/min/ 1.73 m2 FT Chem S Globulin (S) [Mass/Vol] 3.1 g/dL Normal 1.4 - 4.0 gm/dL [facility] Remisol Glucose [Mass/Vol] 95 mg/dL Normal 55 - 199 mg/dL [facility] Remisol Potassium [Moles/Vol] 3.9 mmol/L Normal 3.5 - 5.3 mmol/L [facility] Remisol Protein [Mass/Vol] 6.7 g/dL Normal 6.0 - 7.8 gm/dL [facility]isol Sodium [Moles/Vol] 140 mmol/L Normal 135 - 145 mmol/L [facility] Triglyceride [Mass/Vol] 72 mg/dL Normal <=149mg/dL F [facility] TSH Qn 3.43 m[IU]/L Normal 0.34 - 5.60 mcIU/mL [facility] Urea nitrogen [Mass/Vol] 16 mg/dL Normal 5 - 21 mg/dL [facility] Urea nitrogen/Creatinine [Mass ratio] 14 mg/mg Normal 10 - 20 [facility]isol 25-hydroxyvitamin D3 [Mass/Vol] ng/mL Low 30.0 - 100.0 ng/mL [facility] Troponin I.cardiac [Mass/Vol] 37.00 pg/mL Normal 15.90 - 38.40 pg/mL [facility] CHEMISTRYOrdered By: Natalie Soto on 11-29-2022 Natriuretic peptide B (Bld) [Mass/Vol] 855 pg/mL High 5 - 80 pg/mL FT HemeManSS CHEMISTRYOrdered By: Marian peterson DomainUser on 11-29-2022 Calcium.ionized ISE [Mass/Vol] 4.8 mg/dL Invalid Interpretation Code 4.5-5.6mg/d L [facility] SendOutsSS Comment on above: Result Comment: Perf ormed at: [facility] [address] [id number] PhD [facility] CK [Catalytic activity/Vol] 1096 Int._Unit/L Abnormal 14-261 [facility] Comment on above: Result Comment: Crit ical Result verified by repeat analysis\Critical Result [id number] Called to MANAS BARBA AT by AMY JOHNSON and read back for confirmation at 11/29/2022 06:40:15 Performed By: #### 2 450234, 3537986, 8754271, 92216237, 56842376, 2035672, 83524483, 5166453, 49983963, 872807703, 9998347, 8394042 ####[facility] [address] [place] [address] CT Abdomen/Pelvis w/ Contras ton 11-29-2022 CT Abdomen/Pelvis w/ Contrast Normal [facility] CT Head or Brain w/o Contras ton 11-29-2022 CT Head or Brain w/o Contrast Normal [facility] CTA Cheston 11-29-2022 CTA Chest Normal [facility] Capillary Glucose POCon Glucose [Mass/Vol] 122 mg/dL High 55-99 [facility] Comment on above: Result Comment: Gareth guerrero RN/ Performed By: #### 2 [id number] ####[facility] [address] [place] [address] Glucose [Mass/Vol] 174 mg/dL High 55-99 [facility] Comment on above: Performed By: #### 2 58937530 ####[facility] [address] [place] [address] Glucose [Mass/Vol] 107 mg/dL High 55-99 [facility] Comment on above: Result Comment: Gareth GARDINER Performed By: #### 2 [id number] ####[facility] [address] [place] [address] Consultation Noteon 11-30-19 Consultation Note Normal [facility] Comment on above: Result Comment: Elec tronically Signed By: Marcus POTTS, [place]\Date and Time Signed: 11/29/22 14:44 EDT ED Clinical Summaryon 2022 ED Clinical Summary Normal [facility] ED Note-Physicianon 11-30-19 23 ED Note-Physician Normal [facility] Comment on above: Result Comment: Elec tronically Signed By: Elkin Hitchcock DO\.br\Date and Time Signed: 11/28/22 22:32 EDT ED Patient Education Noteon 11-29-2022 ED Patient Education Note Normal [facility] ED Patient Summaryon 023 ED Patient Summary Normal [facility] HEMATOLOGYOrdered By: SYSTEM SYSTEM on 11-29-2022 Basophils/100 WBC (Bld) 0.5 % Normal 0.0 - 2.0 % [facility] HemeAutoSS Basophils/Leukocytes Auto (Bld) [Pure # fraction] 0.0 E9/L Normal 0.0 - 0.2 E9/L [facility] HemeAutoSS Eosinophils/100 WBC (Bld) 8.4 % High 0.0 - 8.0 % [facility] HemeAutoSS Eosinophils/Leukocytes Auto (Bld) [Pure # fraction] 0.6 E9/L High 0.0 - 0.5 E9/L [facility] HemeAutoSS Lymphocytes/100 WBC (Bld) 15.8 % Normal 14.0 - 50.0 % [facility] HemeAutoSS Lymphocytes/Leukocytes Auto (Bld) [Pure # fraction] 1.2 E9/L Normal 1.0 - 4.0 E9/L [facility] HemeAutoSS Monocytes/100 WBC (Bld) 8.4 % Normal 4.0 - 14.0 % [facility] HemeAutoSS Monocytes/Leukocytes Auto (Bld) [Pure # fraction] 0.6 E9/L Normal 0.2 - 1.0 E9/L [facility] HemeAutoSS Neutrophils/100 WBC (Bld) 66.9 % Normal 36.0 - 75.0 % [facility] HemeAutoSS Neutrophils/Leukocytes Auto (Bld) [Pure # fraction] 5.0 E9/L Normal 2.0 - 7.5 E9/L [facility] HemeAutoSS HEMATOLOGYOrdered By: Natalie Soto on 11-29-2022 Erythrocyte distribution width (RBC) [Ratio] 14.9 % High 10.9 - 14.2 % [facility] HemeAutoSS Hematocrit (Bld) [Volume fraction] 38.1 % Normal 37.7 - 49.0 % [facility] HemeAutoSS Hemoglobin (Bld) [Mass/Vol] 12.8 g/dL Low 13.5 - 17.5 gm/dL [facility] HemeAutoSS MCH (RBC) [Entitic mass] 29.0 pg Normal 27. 0 - 34.0 pg [facility] HemeAutoSS MCHC (RBC) [Mass/Vol] 33.7 g/dL Normal 31.4 - 36.0 gm/dL FT HemeAutoSS MCV (RBC) [Entitic vol] 86.1 fL Normal 80.0 - 100.0 fL [facility] HemeAutoSS Platelet mean volume (Bld) [Entitic vol] 10.9 fL High 6.4 - 10.8 fL [facility] HemeAutoSS Platelets (Bld) [#/Vol] 189.0 E9/L Normal 150. 0 - 500.0 E9/L [facility] HemeAutoSS RBC (Bld) [#/Vol] 4.4 E12/L Normal 4.3 - 5.9 E12/L [facility] HemeAutoSS Sed Rate Automated 17 mm/h Normal 0 - 19 mm/hr FT HemeAutoSS WBC corrected for nucl RBC Auto (Bld) [#/Vol] 7.4 E9/L Normal 4.0 - 11.0 E9/L FT HemeAutoSS Hep Func Panelon 11-29-2022 Albumin [Mass/Vol] 3.6 g/dL Normal 3.3-5.0 [facility] Comment on above: Performed By: #### 2 622799, 9698579, 0337370, 38497791, 88517456, 8742653, 33395217, 4812923, 35943015, 542354601, 4152340, 9898217 ####[facility] [address] [place] [address] Albumin/Globulin (S) [Mass conc ratio] 1.2 Normal 1.1-2.2 [facility] Comment on above: Performed By: #### 2 321830, 0689656, 9603156, 03057718, 99126291, 6613789, 06952166, 2368420, 88614127, 609295813, 6098593, 3227841 ####[facility] [address] [place] [address] ALP [Catalytic activity/Vol] 40 Int._Unit/L Normal 21-98 [facility] Comment on above: Performed By: #### 2 644073, 4386999, 4729561, 14126804, 27472637, 2516273, 58580519, 8140792, 79687692, 110990118, 8439765, 2350133 ####[facility] [address] [place] [address] ALT No additional P-5'-P [Catalytic activity/Vol] 17 Int._Unit/L Normal 6-46 [facility] Comment on above: Performed By: #### 2 290874, 6441443, 6444911, 05500304, 61901195, 5140963, 36321658, 3616199, 82627610, 875921298, 6666701, 0097659 ####[facility] [address] [place] [address] AST [Catalytic activity/Vol] 33 Int._Unit/L Normal 5-43 [facility] Comment on above: Performed By: #### 2 286764, 7772319, 6593742, 54518232, 60229746, 0297315, 93985255, 8140302, 64493716, 596148036, 4295534, 0529523 ####[facility] [address] [place] [address] Bilirubin [Mass/Vol] 1.1 mg/dL Normal 0.0-1.1 [facility] Comment on above: Performed By: #### 2 410226, 6699624, 6904800, 43549033, 50274351, 8723995, 56236853, 9806983, 50910581, 457288993, 8241340, 8186176 ####[facility] [address] [place] [address] Bilirubin.direct [Mass/Vol] 0.2 mg/dL Normal 0.1-0.4 [facility] Comment on above: Performed By: #### 2 713762, 6282372, 2135045, 05743142, 48207247, 6159950, 99904184, 7044122, 86904554, [id number], 6379258, 7846800 ####[facility] [address] [place] [address] Bilirubin.indirect [Mass or moles/Vol] 0.9 mg/dL Normal 0.1-0.9 [facility] Comment on above: Performed By: #### 2 020692, 6819811, 3180846, 43124069, 97727969, 3895531, 47344877, 1892198, 35221512, 935864901, 0361288, 8870304 ####[facility] [address] [place] [address] Globulin (S) [Mass/Vol] 3.1 g/dL Normal 1.4-4.0 [facility] Comment on above: Performed By: #### 2 329784, 6041272, 9199156, 90123526, 46989849, 2484297, 64197496, 5665402, 87429710, 800436410, 5735597, 7105097 ####[facility] [address] [place] [address] Protein [Mass/Vol] 6.7 g/dL Normal 6.0-7.8 [facility] Comment on above: Performed By: #### 2 518565, 2825088, 5422195, 88634561, 03697934, 6975638, 64374215, 8264586, 27711805, 858237906, 4017448, 5925749 ####[facility] [address] [place] [address] Interdisciplinary Note - Santosh e Manageron 11-29-2022 Interdisciplinary Note - Software Engineer Kernel Normal [facility] Comment on above: Result Comment: Elec tronically Signed By: Jose HAYDEN, Norma\.br\Date and Time Signed: 11/29/22 15:07 EDT Lipid Panelon 11-29-2022 Cholesterol [Mass/Vol] 114 mg/dL Low 120-200 [facility] Comment on above: Performed By: #### 2 307058, 2232323, 2988170, 15138936, 78806220, 1463174, 72413564, 8418250, 48747119, 853270080, 1928580, 8688433 ####[facility] [address] [place] [address] Cholesterol in HDL [Mass/Vol] 50 mg/dL Invalid Interpretation Code [facility] Comment on above: Result Comment: HDL > or equal to 60 mg/dL: Low cardiovascular riskHDL < 40 mg/dL : High cardiovascular risk Performed By: #### 2 289651, 9358121, 5563528, 97023297, 76216443, 2624149, 73534178, 8930955, 48995993, 078764044, 2955629, 3038514 ####[facility] [address] [place] [address] Cholesterol in LDL [Mass/Vol] 43 mg/dL Normal <=129 [facility] Comment on above: Performed By: #### 2 348565, 8091767, 7106547, 48641576, 38027958, 7055381, 51038654, 5510708, 80467069, 078094992, 3314581, 3675812 ####[facility] [address] [place] [address] Cholesterol in VLDL [Mass/Vol] 14 mg/dL Normal 7-40 [facility] Comment on above: Performed By: #### 2 858116, 2298851, 4831207, 95236448, 89376756, 5772462, 65923527, 8160734, 00799120, 238689378, 5708091, 2035481 ####[facility] [address] [place] [address] Triglyceride [Mass/Vol] 72 mg/dL Normal <=149 [facility] Comment on above: Performed By: #### 2 043471, 9806768, 4875475, 70488167, 65722836, 7804832, 43779933, 9375983, 46309172, 879781563, 2100775, 8617003 ####[facility] [address] [place] [address] Monitor Recordon 11-29-2022 Monitor Record [id number]# 1.00CD:127 Normal [facility] Monitor Record [id number]# 1.00CD:127 Normal [facility] Monitor Record [id number]# 1.00CD:127 Normal [facility] Monitor Record [id number]# 1.00CD:127 Normal [facility] Monitor Record [id number]# 1.00CD:127 Normal [facility] Monitor Record [id number]# 1.00CD:127 Normal [facility] Monitor Record [id number]# 1.00CD:127 Normal [facility] Monitor Record [id number]# 1.00CD:127 Normal [facility] Progress Note-Physicianon Progress Note-Physician Normal [facility] Comment on above: Result Comment: Elec tronically Signed By: New Johnson DO.br\Date and Time Signed: 11/29/22 10:54 EDT RAD - Preliminary Cat Scan R eporton 11-29-2022 RAD - Preliminary Cat Scan Report [id number] #1.00CD:127 Normal [facility] Sed Rate Automatedon 023 Sed Rate Automated 17 mm/hr Normal 0-19 [facility] Comment on above: Performed By: #### 2 868138, 6642615, 8315556, 55627467, 34668735, 4867453, 27417181, 5219682, 05920553, 798330665, 4070509, 6621302 ####[facility] [address] [place] [address] TSH With T4fr Reflexon 11-29 TSH Qn 3.43 m[IU]/L Normal 0.34-5.60 [facility] Comment on above: Performed By: #### 2 900953, 4319256, 9631158, 48924352, 76698002, 6810922, 89571637, 0937119, 69622719, 928677823, 3808802, 4271514 ####[facility] [address] [place] [address] Troponin 6 Hr.on 11-29-2022 Troponin I.cardiac [Mass/Vol] 32.60 pg/mL Normal 15.90-38.40 [facility] Comment on above: Result Comment: The 95% CI (Confidence Interval) PPV (Positive Predictive Value) for myocardial infarction in females is 38 pg/mL, in males 51 pg/mL. The results should be used in conjunction with clinical conditions of myocardial infarction.(Access High Sensitivity Troponin I Instructions For Use, Vide[employer], December 2017) Performed By: #### 1 6241762 ####[facility] [address] [place] [address] Troponin 9 Hr.on 11-29-2022 Troponin I.cardiac [Mass/Vol] 37.00 pg/mL Normal 15.90-38.40 [facility] Comment on above: Result Comment: The 95% CI (Confidence Interval) PPV (Positive Predictive Value) for myocardial infarction in females is 38 pg/mL, in males 51 pg/mL. The results should be used in conjunction with clinical conditions of myocardial infarction.(Access High Sensitivity Troponin I Instructions For Use, [employer], December 2017) Performed By: #### 1 2773429 ####[facility] [address] [place] [address] Vitamin D 25 Hydroxyon 11-29 25-hydroxyvitamin D3 [Mass/Vol] ng/mL Low 30.0-100.0 [facility] Comment on above: Result Comment: Vit palacios D deficiency has been defined as a level of serum 25-OH vitamin D less than 20 ng/mL (1,2) by the [place] of Medicine and an Endocrine Society practice guideline. The Endocrine Society further defined vitamin D insufficiency as a level between 21 and 29 ng/mL (2). 1. IOM ([place] of Medicine). 2010. Dietary reference intakes for calcium and D. [place]: The National Academies Press. 2. Patricia MF, Parisa AGUIRRE, Reji PETERS, et al. Evaluation, treatment, and prevention of vitamin D deficiency: an Endocrine Society clinical practice guideline. JCEM. 2010; 96 (7):1911-30. Performed By: #### 2 025363, 7743972, 9984403, 58412387, 03924287, 7850377, 83179997, 2930042, 71779351, 819003634, 9198102, 9204231 ####[facility] [address] [place] [address] eGFRon 11-29-2022 GFR/1.73 sq M.predicted among non-blacks MDRD (S/P/Bld) [Vol rate/Area] 69 mL/min/1.73 m2 Normal >=59 [facility] Comment on above: Order Comment: Order added by Discern Expert. Result Comment: Food Preservation Scientist earnest kidney disease could be indicated at eGFR's of less than 60 mL/min/1.73m2. Kidney failure is indicated at less than 15 mL/min/1.73m2. Performed By: #### 2 077872, 1166330, 0620339, 14616163, 47111011, 3409712, 99811001, 8745785, 89785767, 123030873, 1822845, 8849919 ####[facility] [address] [place] [address] Auto Diffon 11-28-2022 Basophils/100 WBC (Bld) 0.7 % Normal 0.0-2.0 [facility] Comment on above: Order Comment: Order Added by Discern Expert. Performed By: #### 1 8156373, 3699784, 1591836, 1973091, 87169464 ####[address] [place] [address] Basophils/Leukocytes Auto (Bld) [Pure # fraction] 0.0 E9/L Normal 0.0-0.2 [facility] Comment on above: Order Comment: Order Added by Discern Expert. Performed By: #### 1 3965547, 1206031, 6550830, 1331464, 19063865 ####[address] [address] Eosinophils/100 WBC (Bld) 7.4 % Normal 0.0-8.0 [facility] Comment on above: Order Comment: Order Added by Discern Expert. Performed By: #### 1 1944339, 7857267, 6601212, 6232874, 73997832 ####[address] [address] Eosinophils/Leukocytes Auto (Bld) [Pure # fraction] 0.5 E9/L Normal 0.0-0.5 [facility] Comment on above: Order Comment: Order Added by Bethany Expert. Performed By: #### 1 9620530, 7722523, 5388118, 1030066, 90893713 ####[address] [address] Lymphocytes/100 WBC (Bld) 9.3 % Low 14.0-50.0 [facility] Comment on above: Order Comment: Order Added by Discern Expert. Performed By: #### 1 4663950, 7593634, 2738742, 2669258, 53721360 ####[address] [place] [address] Lymphocytes/Leukocytes Auto (Bld) [Pure # fraction] 0.7 E9/L Low 1.0-4.0 [facility] Comment on above: Order Comment: Order Added by Bethany Expert. Performed By: #### 1 4180632, 0615252, 9952997, 9712540, 80809782 ####[address] [address] Monocytes/100 WBC (Bld) 6.6 % Normal 4.0-14.0 [facility] Comment on above: Order Comment: Order Added by Discern Expert. Performed By: #### 1 6660076, 2880325, 1243396, 8742807, 89633840 ####[facility] [address] [place] [address] Monocytes/Leukocytes Auto (Bld) [Pure # fraction] 0.5 E9/L Normal 0.2-1.0 [facility] Comment on above: Order Comment: Order Added by Discern Expert. Performed By: #### 1 1777038, 2602779, 9749530, 8620855, 00370734 ####[facility] [address] [place] [address] Neutrophils/100 WBC (Bld) 76.0 % High 36.0-75.0 [facility] Comment on above: Order Comment: Order Added by Discern Expert. Performed By: #### 1 6715860, 1959789, 8801103, 1871127, 57629720 ####[facility] [address] [place] [address] Neutrophils/Leukocytes Auto (Bld) [Pure # fraction] 5.4 E9/L Normal 2.0-7.5 [facility] Comment on above: Order Comment: Order Added by Discern Expert. Performed By: #### 1 5373683, 1658527, 7950832, 7098227, 04892908 ####[facility] [address] [place] [address] BMPon 11-28-2022 Creatinine [Mass/Vol] 1.0 mg/dL Normal 0.5-1.3 [facility] Comment on above: Performed By: #### 1 1526573, 9551312, 6755085, 1191479, 90039769 ####[facility] [address] [place] [address] Urea nitrogen [Mass/Vol] 16 mg/dL Normal 5-21 [facility] Comment on above: Performed By: #### 1 6931166, 5657036, 4779945, 6821423, 31837794 ####[facility] [address] [place] [address] Urea nitrogen/Creatinine [Mass ratio] 16 No Units Normal 10-20 [facility] Comment on above: Performed By: #### 1 0425180, 7087735, 1696081, 3438694, 78054855 ####[facility] [address] [place] [address] Anion gap [Moles/Vol] 10 mmol/L Normal 6-16 [facility] Comment on above: Performed By: #### 1 3377103, 1649597, 3306455, 5989286, 95694191 ####[facility] [address] [place] [address] Calcium [Mass/Vol] 8.8 mg/dL Low 8.9-11.1 [facility] Comment on above: Performed By: #### 1 9279313, 9144475, 9632236, 4204170, 62261618 ####[facility] [address] [place] [address] Chloride [Moles/Vol] 105 mmol/L Normal 101-111 [facility] Comment on above: Performed By: #### 1 8952559, 8324262, 2433270, 5217716, 84595140 ####[facility] [address] [place] [address] CO2 [Moles/Vol] 28 mmol/L Normal 21-31 [facility] Comment on above: Performed By: #### 1 2407475, 1084819, 0952482, 7419974, 24349665 ####[facility] [address] [place] [address] Glucose [Mass/Vol] 114 mg/dL Normal 55-199 [facility] Comment on above: Result Comment: If t his glucose result represents a fasting glucose, interpretation should refer to the following reference range: 55-99 mg/dL Performed By: #### 1 5942544, 8139900, 7329588, 2357626, 16102549 ####[facility] [address] [place] [address] Potassium [Moles/Vol] 4.1 mmol/L Normal 3.5-5.3 [facility] Comment on above: Performed By: #### 1 1011795, 3796459, 3835090, 6076570, 81137425 ####[facility] [address] [place] [address] Sodium [Moles/Vol] 139 mmol/L Normal 135-145 [facility] Comment on above: Performed By: #### 1 8576841, 1114507, 7480835, 7335957, 99637897 ####[address] [place] [address] Blood Gas Art, with Lytes, Paula christal, [place] 11-28-2022 a/A Ratio Art 53.40 % Normal >=0.80 [facility] Comment on above: Performed By: #### 4 [id number] ####[address] [address] AaDO2 Art 64.9 mmHg High 5.0-15.0 [facility] Comment on above: Performed By: #### 4 53882026 ####[address] [address] Allens Test Positive Normal [facility] Comment on above: Performed By: #### 4 05409353 ####[address] [address] Base Excess Arterial 2.9 mmol/L Normal >=2.8 [facility] Comment on above: Performed By: #### 4 32985786 ####[address] [place] [address] cCa2+ Art 4.88 mg/dL Normal 4.40-5.30 [facility] Comment on above: Performed By: #### 4 90363606 ####[address] [address] cCl- Art 103.0 mmol/L Normal 101.0-111.0 [facility] Comment on above: Performed By: #### 4 09301166 ####[facility] [address] [place] [address] cGlu Art 98 mg/dL Normal 55-99 [facility] Comment on above: Performed By: #### 4 60081315 ####[facility] [address] [place] [address] cK+ Art 3.6 mmol/L Normal 3.5-5.3 [facility] Comment on above: Performed By: #### 4 73370183 ####[facility] [address] [place] [address] cLac Art .6 mmol/L Normal .5-2.2 [facility] Comment on above: Performed By: #### 4 78566039 ####[facility] [address] [place] [address] sap mobility architect+ Art 139.0 mmol/L Normal 135.0-145.0 [facility] Comment on above: Performed By: #### 4 02262899 ####[facility] [address] [place] [address] Drawn by nmb Invalid Interpretation Code [facility] Comment on above: Performed By: #### 4 02456138 ####[facility] [address] [place] [address] FCOHb Art 1.5 % Normal 1.5-4.9 [facility] Comment on above: Result Comment: Refe rence rangeNonsmoker <1.5%Smoker <5.0%Heavy Smoker <9.0% Performed By: #### 4 10081815 ####[facility] [address] [place] [address] FIO2 BG 28 Invalid Interpretation Code [facility] Comment on above: Performed By: #### 4 13465105 ####[facility] [address] [place] [address] Flow 2 Invalid Interpretation Code [facility] Comment on above: Performed By: #### 4 82549363 ####[facility] [address] [place] [address] FMetHb Art 0.3 % Normal 0.0-1.9 [facility] Comment on above: Performed By: #### 4 20276805 ####[facility] [address] [place] [address] FO2Hb Art 93.7 % Normal 93.0-100.0 [facility] Comment on above: Performed By: #### 4 50218872 ####[address] [place] [address] HCO3 (Bld) [Moles/Vol] 26.9 mmol/L High 22.0-26.0 [facility] Comment on above: Performed By: #### 4 86658962 ####[address] [place] [address] Hemoglobin (Bld) [Mass/Vol] 11.9 g/dL Low 12.0-17.0 [facility] Comment on above: Performed By: #### 4 35425719 ####[facility] [address] [place] [address] Oxygen saturation in Blood 95.4 % Normal 95.0-100.0 [facility] Comment on above: Performed By: #### 4 43852723 ####[facility] [address] [address] P CO2 Arterial 47.6 mmHg High 35.0-45.0 [facility] Comment on above: Performed By: #### 4 82568028 ####[facility] [address] [place] [address] P O2 Arterial 74.3 mmHg Low 80.0-100.0 [facility] Comment on above: Performed By: #### 4 14931119 ####[address] [place] [address] pH Arterial 7.387 Normal 7.350-7.450 [facility] Comment on above: Performed By: #### 4 95116742 ####[address] [address] Sample Site R Radial Normal [facility] Comment on above: Performed By: #### 4 49761506 ####[place] [address] Sample Type Arterial Draw Normal [facility] Comment on above: Performed By: #### 4 20611188 ####[place] [address] CBC w/ Auto Diffon 3 Erythrocyte distribution width (RBC) [Ratio] 14.8 % High 10.9-14.2 [facility] Comment on above: Performed By: #### 1 7534666, 5733238, 9274511, 6975010, 21083895 ####[place] [address] Hematocrit (Bld) [Volume fraction] 37.3 % Low 37.7-49.0 [facility] Comment on above: Performed By: #### 1 5295245, 5004227, 7097366, 9254604, 98415415 ####[facility] [address] [place] [address] Hemoglobin (Bld) [Mass/Vol] 12.3 g/dL Low 13.5-17.5 [facility] Comment on above: Performed By: #### 1 8807248, 1084670, 8345720, 4430418, 69124823 ####[facility] [address] [place] [address] MCH (RBC) [Entitic mass] 28.3 pg Normal 27.0-34.0 [facility] Comment on above: Performed By: #### 1 8664552, 0178907, 6950766, 9621461, 29359013 ####[facility] [address] [place] [address] MCHC (RBC) [Mass/Vol] 33.0 g/dL Normal 31.4-36.0 [facility] Comment on above: Performed By: #### 1 0933502, 0935532, 9666014, 3304367, 59056150 ####[address] [place] [address] MCV (RBC) [Entitic vol] 85.9 fL Normal 80.0-100.0 [facility] Comment on above: Performed By: #### 1 2240177, 3076370, 5233114, 6042389, 13599351 ####[address] [address] Platelet mean volume (Bld) [Entitic vol] 10.4 fL Normal 6.4-10.8 [facility] Comment on above: Performed By: #### 1 8687530, 6113810, 9005805, 5440056, 17929304 ####[address] [address] Platelets (Bld) [#/Vol] 189.0 E9/L Normal 150.0-500.0 [facility] Comment on above: Performed By: #### 1 9418924, 8373645, 2973801, 2934628, 94627356 ####[place] [address] RBC (Bld) [#/Vol] 4.3 E12/L Normal 4.3-5.9 [facility] Comment on above: Performed By: #### 1 5948256, 0358862, 4130911, 2538745, 99680292 ####[address] [address] WBC corrected for nucl RBC Auto (Bld) [#/Vol] 7.1 E9/L Normal 4.0-11.0 [facility] Comment on above: Performed By: #### 1 9305538, 0470850, 2144515, 5712503, 43281208 ####[address] [address] CHEMISTRYOrdered By: SYSTEM SYSTEM on 11-28-2022 Troponin I.cardiac [Mass/Vol] 32.60 pg/mL Normal 15.90 - 38.40 pg/mL [facility] Remisol Troponin I.cardiac [Mass/Vol] 26.90 pg/mL Normal 15.90 - 38.40 pg/mL [facility] Remisol Consent for Treatmenton Consent for Treatment [id number]#1 .00CD:127 Normal [facility] ED Note-Physicianon 11-29-19 ED Note-Physician Normal [facility] Comment on above: Result Comment: Elec tronically Signed By: Shane Pan DO\.br\Date and Time Signed: 11/28/22 18:32 EDT FT Blood GasesOrdered By: Sue Orozco on 11-28-2022 a/A Ratio Art 53.40 % Normal >=0.80% [facility] Resp Auto SS AaDO2 Art 64.9 mm[Hg] High 5.0 - 15.0 mmHg FT Resp Auto SS Allens Test Positive (11/28/22 6:55 PM) Normal [facility] Resp Auto SS Base Excess Arterial 2.9 mmol/L Normal >=2.8mmol/L FTM C Resp Auto SS cCa2+ Art 4.88 mg/dL Normal 4.40 - 5.30 mg/dL FT Resp Auto SS cCl- Art 103.0 mmol/L Normal 101.0 - 111.0 mmol/L [facility] Resp Auto SS cGlu Art 98 mg/dL Normal 55 - 99 mg/dL FT Resp Auto SS cK+ Art 3.6 mmol/L Normal 3.5 - 5.3 mmol/L FT Resp Auto SS cLac Art 0.6 mmol/L Normal 0.5 - 2.2 mmol/L FT Resp Auto SS sap mobility architect+ Art 139.0 mmol/L Normal 135.0 - 145.0 mmol/L FT Resp Auto SS Drawn by nmb Invalid Interpretation Code [facility] Resp Auto SS FCOHb Art 1.5 % Normal 1.5 - 4.9 % [facility] Resp Auto SS FIO2 BG 28 Invalid Interpretation Code [facility] Resp Auto SS Flow 2 Invalid Interpretation Code FT Resp Auto SS FMetHb Art 0.3 % Normal 0.0 - 1.9 % [facility] Resp Auto SS FO2Hb Art 93.7 % Normal 93.0 - 100.0 % [facility] Resp Auto SS HCO3 (Bld) [Moles/Vol] 26.9 mmol/L High 22.0 - 26.0 mmol/L [facility] Resp Auto SS Hemoglobin (Bld) [Mass/Vol] 11.9 g/dL Low 12.0 - 17.0 gm/dL [facility] Resp Auto SS P CO2 Arterial 47.6 mm[Hg] High 35.0 - 45.0 mmHg [facility] Resp Auto SS P O2 Arterial 74.3 mm[Hg] Low 80.0 - 100.0 mmHg [facility] Resp Auto SS pH Arterial 7.387 Normal 7.350 - 7.450 [facility] Resp Auto SS Sample Site R Radial (11/28/22 6:55 PM) Normal [facility] Resp Auto SS Sample Type Arterial Draw (11/28/22 6:55 PM) Normal [facility] Resp Auto SS HEMATOLOGYOrdered By: SYSTEM SYSTEM on 11-28-2022 Basophils/100 WBC (Bld) 0.7 % Normal 0.0 - 2.0 % [facility] HemeAutoSS Basophils/Leukocytes Auto (Bld) [Pure # fraction] 0.0 E9/L Normal 0.0 - 0.2 E9/L [facility] HemeAutoSS Eosinophils/100 WBC (Bld) 7.4 % Normal 0.0 - 8.0 % [facility] HemeAutoSS Eosinophils/Leukocytes Auto (Bld) [Pure # fraction] 0.5 E9/L Normal 0.0 - 0.5 E9/L [facility] HemeAutoSS Lymphocytes/100 WBC (Bld) 9.3 % Low 14.0 - 50.0 % [facility] HemeAutoSS Lymphocytes/Leukocytes Auto (Bld) [Pure # fraction] 0.7 E9/L Low 1.0 - 4.0 E9/L [facility] HemeAutoSS Monocytes/100 WBC (Bld) 6.6 % Normal 4.0 - 14.0 % [facility] HemeAutoSS Monocytes/Leukocytes Auto (Bld) [Pure # fraction] 0.5 E9/L Normal 0.2 - 1.0 E9/L [facility] HemeAutoSS Neutrophils/100 WBC (Bld) 76.0 % High 36.0 - 75.0 % [facility] HemeAutoSS Neutrophils/Leukocytes Auto (Bld) [Pure # fraction] 5.4 E9/L Normal 2.0 - 7.5 E9/L [facility] HemeAutoSS HEMATOLOGYOrdered By: Natalie Soto on 11-28-2022 Erythrocyte distribution width (RBC) [Ratio] 14.8 % High 10.9 - 14.2 % [facility] HemeAutoSS Hematocrit (Bld) [Volume fraction] 37.3 % Low 37.7 - 49.0 % [facility] HemeAutoSS Hemoglobin (Bld) [Mass/Vol] 12.3 g/dL Low 13.5 - 17.5 gm/dL [facility] HemeAutoSS MCH (RBC) [Entitic mass] 28.3 pg Normal 27. 0 - 34.0 pg [facility] HemeAutoSS MCHC (RBC) [Mass/Vol] 33.0 g/dL Normal 31.4 - 36.0 gm/dL [facility] HemeAutoSS MCV (RBC) [Entitic vol] 85.9 fL Normal 80.0 - 100.0 fL [facility] HemeAutoSS Platelet mean volume (Bld) [Entitic vol] 10.4 fL Normal 6.4 - 10.8 fL FT HemeAutoSS Platelets (Bld) [#/Vol] 189.0 E9/L Normal 150. 0 - 500.0 E9/L [facility] HemeAutoSS RBC (Bld) [#/Vol] 4.3 E12/L Normal 4.3 - 5.9 E12/L FT HemeAutoSS WBC corrected for nucl RBC Auto (Bld) [#/Vol] 7.1 E9/L Normal 4.0 - 11.0 E9/L [facility] HemeAutoSS Pre-Arrival Noteon Pre-Arrival Note Normal [facility] Troponin 0 Hr.on 11-28-2022 Troponin I.cardiac [Mass/Vol] 21.80 pg/mL Normal 15.90-38.40 [facility] Comment on above: Result Comment: The 95% CI (Confidence Interval) PPV (Positive Predictive Value) for myocardial infarction in females is 38 pg/mL, in males 51 pg/mL. The results should be used in conjunction with clinical conditions of myocardial infarction.(Access High Sensitivity Troponin I Instructions For Use, Claudia [place], December 2017) Performed By: #### 1 4059929, 6819167, 8622957, 9354808, 10682837 ####[facility] [address] [place] [address] Troponin 3 Hr.on 11-28-2022 Troponin I.cardiac [Mass/Vol] 26.90 pg/mL Normal 15.90-38.40 [facility] Comment on above: Result Comment: The 95% CI (Confidence Interval) PPV (Positive Predictive Value) for myocardial infarction in females is 38 pg/mL, in males 51 pg/mL. The results should be used in conjunction with clinical conditions of myocardial infarction.(Access High Sensitivity Troponin I Instructions For Use, Claudia Luis, December 2017) Performed By: #### 1 [id number] ####[facility] [address] [place] [address] UA With Cult Reflexon 2022 Crystals LM Ql (Urine sed) Present Normal [facility] Comment on above: Performed By: #### 1 4047404 ####[facility] [address] [place] [address] Epithelial cells.squamous LM.HPF (Urine sed) [#/Area] 0-2 Normal 0-2 [facility] Comment on above: Performed By: #### 1 7251532 ####[facility] [address] [place] [address] [place].plasma/[place].R BC (Bld) [Mass ratio] 0-3 Normal 0-3 [facility] Comment on above: Performed By: #### 1 6064947 ####[facility] [address] [place] [address] Mucus Ql (Urine sed) TRACE Normal [facility] Comment on above: Performed By: #### 1 2813105 ####[facility] [address] [place] [address] WBC LM.HPF (Urine sed) [#/Area] 0-5 Normal 0-5 [facility] Comment on above: Performed By: #### 1 [id number] ####[facility] [address] [place] [address] Bilirubin Ql (U) Negative Normal Negative [facility] Comment on above: Performed By: #### 1 [id number] ####[facility] [address] [place] [address] Clarity (U) CLEAR Normal Clear [facility] Comment on above: Performed By: #### 1 [id number] ####[facility] [address] [place] [address] Color (U) YELLOW Normal Yellow [facility] Comment on above: Performed By: #### 1 4452083 ####[facility] [address] [place] [address] Glucose Test strip (U) [Mass/Vol] Negative Normal Negative [facility] Comment on above: Performed By: #### 1 3304670 ####[facility] [address] [place] [address] Hemoglobin Ql (U) Negative Normal Negative [facility] Comment on above: Performed By: #### 1 8084942 ####[address] [address] Ketones (U) [Mass/Vol] Negative Normal Negative [facility] Comment on above: Performed By: #### 1 [id number] ####[address] [address] Nitrite Ql (U) Negative Normal Negative [facility] Comment on above: Performed By: #### 1 5093710 ####[address] [address] pH (U) 6.0 [pH] Invalid Interpretation Code 5.0-9.0 [facility] Comment on above: Performed By: #### 1 [id number] ####[address] [place] [address] Protein (U) [Mass/Vol] 2+ Abnormal Negative [facility] Comment on above: Performed By: #### 1 1121851 ####[address] [address] Specific gravity (U) [Rel density] 1.025 Invalid Interpretation Code 1.005-1.030 [facility] Comment on above: Performed By: #### 1 8497490 ####[address] [address] Type of Urine collection method Clean Catch Normal [facility] Comment on above: Performed By: #### 1 9683110 ####[facility] [address] [place] [address] Urobilinogen Qn (U) 0.2 {Lei'U}/dL Normal 0.0-1.0 [facility] Comment on above: Performed By: #### 1 [id number] ####[facility] [address]fiok[address] [place] [address] WBC Auto Ql (U) Negative Normal Negative [facility] Comment on above: Performed By: #### 1 4221019 ####[facility] [address] [place] [address] URINALYSISOrdered By: Emily Suero on 11-28-2022 Bilirubin Ql (U) Negative (11/28/22 5:55 PM) Normal Negative [facility]A Auto SS Clarity (U) Clear (11/28/22 5:55 PM) Normal Clear [facility] UA Auto SS Color (U) Yellow (11/28/22 5:55 PM) Normal Yellow [facility] UA Auto SS Crystals LM Ql (Urine sed) Present (11/28/22 5:55 PM) Normal [facility] UA Auto SS Epithelial cells.squamous LM.HPF (Urine sed) [#/Area] 0-2 /HPF Normal 0-2/HPF [facility] UA Aut o SS Glucose Test strip (U) [Mass/Vol] Negative (11/28/22 5:55 PM) Normal Negative [facility] UA Auto SS Hemoglobin Ql (U) Negative (11/28/22 5:55 PM) Normal Negative [facility] UA Auto SS Ketones (U) [Mass/Vol] Negative (11/28/22 5:55 PM) Normal Negative [facility] UA Auto SS [place].plasma/[place].R BC (Bld) [Mass ratio] 0-3 /HPF Normal 0-3/HPF [facility] UA Au to SS Mucus Ql (Urine sed) Trace (11/28/22 5:55 PM) Normal [facility] UA Auto SS Nitrite Ql (U) Negative (11/28/22 5:55 PM) Normal Negative [facility] UA Auto SS pH (U) 6.0 *NA* (11/28/22 5:55 PM) Invalid Interpretation Code 5.0 - 9.0 [facility] UA Auto SS Protein (U) [Mass/Vol] 2+ *ABN* (11/28/22 5:55 PM) Invalid Interpretation Code Negative [facility] UA Auto SS Specific gravity (U) [Rel density] 1.025 *NA* (11/28/22 5:55 PM) Invalid Interpretation Code 1.005 - 1.030 [facility] UA Auto SS UA Spec Desc Clean Catch (11/28/22 5:55 PM) Normal [facility] UA Auto SS Urobilinogen Qn (U) 0.5501752 {Lei'U}/dL Normal 0.0 - 1.0 EU/dL [facility] UA Auto SS WBC Auto Ql (U) Negative (11/28/22 5:55 PM) Normal Negative [facility] UA Auto SS WBC LM.HPF (Urine sed) [#/Area] 0-5 /HPF Normal 0-5/HPF [facility] UA Auto SS XR Chest Single Viewon 11-28 XR Chest Single View Normal [facility] eGFRon 11-28-2022 GFR/1.73 sq M.predicted among non-blacks MDRD (S/P/Bld) [Vol rate/Area] 77 mL/min/1.73 m2 Normal >=59 [facility] Comment on above: Order Comment: Order added by Discern Expert. Result Comment: Food Preservation Scientist earnest kidney disease could be indicated at eGFR's of less than 60 mL/min/1.73m2. Kidney failure is indicated at less than 15 mL/min/1.73m2. Performed By: #### 1 9483764, 3751845, 7916605, 7889885, 73877550 ####[facility] [address] [place] [address] CHEMISTRYOrdered By: SYSTEM SYSTEM on 11-26-2022 Albumin [Mass/Vol] 3.7 g/dL Normal 3.3 - 5.0 gm/dL [facility] Remisol Albumin/Globulin [Mass ratio] 1.2 {ratio} Normal 1.1 - 2.2 [facility] Remisol ALP [Catalytic activity/Vol] 38 [iU]/d Normal 21 - 98 Int._Unit/L [facility] Remisol ALT No additional P-5'-P [Catalytic activity/Vol] 11 [iU]/d Normal 6 - 46 Int._Unit/L [facility] Remisol Anion gap [Moles/Vol] 14 mmol/L Normal 6 - 16 mEq/L [facility] Remisol AST [Catalytic activity/Vol] 15 [iU]/d Normal 5 - 43 Int._Unit/L [facility] Remisol Bilirubin [Mass/Vol] 1.0 mg/dL Normal 0.0 - 1 .1 mg/dL [facility] Remisol Calcium [Mass/Vol] 9.2 mg/dL Normal 8.9 - 11. 1 mg/dL [facility]isol Chloride [Moles/Vol] 107 mmol/L Normal 101 - 1 11 mmol/L [facility]isol Cholesterol [Mass/Vol] 112 mg/dL Low 120 - 200 mg/dL [facility] Remisol Cholesterol in HDL [Mass/Vol] 49 mg/dL Invalid Interpretation Code [facility] Remisol Cholesterol in LDL [Mass/Vol] 42 mg/dL Normal <=129mg/dL [facility] Remisol Cholesterol in VLDL [Mass/Vol] 14 mg/dL Normal 7 - 40 mg/dL [facility] Remisol CO2 [Moles/Vol] 28 mmol/L Normal 21 - 31 mmol/L [facility] Remisol Creatinine [Mass/Vol] 0.9 mg/dL Normal 0.5 - 1.3 mg/dL [facility] Remisol GFR/1.73 sq M.predicted among non-blacks MDRD (S/P/Bld) [Vol rate/Area] 87 mL/min/1.73 m2 Normal >=59mL/min/ 1.73 m2 [facility] Chem S Globulin (S) [Mass/Vol] 3.2 g/dL Normal 1.4 - 4.0 gm/dL [facility] Remisol Glucose [Mass/Vol] 95 mg/dL Normal 55 - 199 mg/dL [facility] Remisol Potassium [Moles/Vol] 4.2 mmol/L Normal 3.5 - 5.3 mmol/L [facility] Remisol Protein [Mass/Vol] 6.9 g/dL Normal 6.0 - 7.8 gm/dL [facility] Remisol Sodium [Moles/Vol] 145 mmol/L Normal 135 - 145 mmol/L [facility] Remisol Triglyceride [Mass/Vol] 69 mg/dL Normal <=149mg/dL [facility]isol TSH Qn 2.07 m[IU]/L Normal 0.34 - 5.60 mcIU/mL [facility] Remisol Urea nitrogen [Mass/Vol] 18 mg/dL Normal 5 - 21 mg/dL [facility] Remisol Urea nitrogen/Creatinine [Mass ratio] 20 mg/mg Normal 10 - 20 [facility] Remisol CMPon 11-26-2022 Albumin [Mass/Vol] 3.7 g/dL Normal 3.3-5.0 [facility] Comment on above: Performed By: #### 2 871646, 5888977, 14208213, 2652059 ####[facility] [address] [place] [address] Albumin/Globulin (S) [Mass conc ratio] 1.2 Normal 1.1-2.2 [facility] Comment on above: Performed By: #### 2 075604, 1869775, 80578590, 6182928 ####[facility] [address] [place] [address] ALP [Catalytic activity/Vol] 38 Int._Unit/L Normal 21-98 [facility] Comment on above: Performed By: #### 2 526859, 2991411, 91358256, 2315422 ####[facility] [address] [place] [address] ALT No additional P-5'-P [Catalytic activity/Vol] 11 Int._Unit/L Normal 6-46 [facility] Comment on above: Performed By: #### 2 926903, 6339299, 16924919, 8339905 ####[facility] [address] [place] [address] Anion gap [Moles/Vol] 14 mmol/L Normal 6-16 [facility] Comment on above: Performed By: #### 2 716149, 2928267, 05449145, 5000656 ####[facility] [address] [place] [address] AST [Catalytic activity/Vol] 15 Int._Unit/L Normal 5-43 [facility] Comment on above: Performed By: #### 2 725884, 5631850, 67501334, 4720271 ####[facility] [address] [place] [address] Bilirubin [Mass/Vol] 1.0 mg/dL Normal 0.0-1.1 [facility] Comment on above: Performed By: #### 2 319890, 6009517, 78829492, 8382157 ####[facility] [address] [place] [address] Calcium [Mass/Vol] 9.2 mg/dL Normal 8.9-11.1 [facility] Comment on above: Performed By: #### 2 069199, 9756947, 91776874, 2158271 ####[facility] [address] [place] [address] Chloride [Moles/Vol] 107 mmol/L Normal 101-111 [facility] Comment on above: Performed By: #### 2 146544, 4380379, 53351447, 3693690 ####[facility] [address] [place] [address] CO2 [Moles/Vol] 28 mmol/L Normal 21-31 [facility] Comment on above: Performed By: #### 2 692297, 8820076, 43906444, 3014801 ####[facility] [address] [place] [address] Creatinine [Mass/Vol] 0.9 mg/dL Normal 0.5-1.3 [facility] Comment on above: Performed By: #### 2 874942, 5210564, 91204738, 8020705 ####[facility] [address] [place] [address] Globulin (S) [Mass/Vol] 3.2 g/dL Normal 1.4-4.0 F [facility] Comment on above: Performed By: #### 2 551172, 5143580, 53921449, 8700851 ####[facility] [address] [place] [address] Glucose [Mass/Vol] 95 mg/dL Normal 55-199 [facility] Comment on above: Result Comment: If t his glucose result represents a fasting glucose, interpretation should refer to the following reference range: 55-99 mg/dL Performed By: #### 2 342344, 1619517, 41691948, 0751143 ####[facility] [address] [place] [address] Potassium [Moles/Vol] 4.2 mmol/L Normal 3.5-5.3 [facility] Comment on above: Performed By: #### 2 269571, 2344127, 52075953, 8190287 ####[facility] [address] [place] [address] Protein [Mass/Vol] 6.9 g/dL Normal 6.0-7.8 [facility] Comment on above: Performed By: #### 2 502129, 0707616, 75878168, 9158113 ####[facility] [address] [place] [address] Sodium [Moles/Vol] 145 mmol/L Normal 135-145 [facility] Comment on above: Performed By: #### 2 594050, 7012448, 50052735, 6663712 ####[facility] [address] [place] [address] Urea nitrogen [Mass/Vol] 18 mg/dL Normal 5-21 [facility] Comment on above: Performed By: #### 2 769872, 4244554, 98847804, 0026972 ####[facility] [address] [place] [address] Urea nitrogen/Creatinine [Mass ratio] 20 No Units Normal 10-20 [facility] Comment on above: Performed By: #### 2 422976, 3857454, 32164409, 5025251 ####[facility] [address] [place] [address] Consent for Treatmenton 0 Consent for Treatment [id number] [facility] [id number]#1 .00CD:127 Normal [facility] Lipid Panelon 11-26-2022 Cholesterol [Mass/Vol] 112 mg/dL Low 120-200 [facility] Comment on above: Performed By: #### 2 485740, 3843820, 55005687, 5546905 ####[facility] [address] [place] [address] Cholesterol in HDL [Mass/Vol] 49 mg/dL Invalid Interpretation Code [facility] Comment on above: Result Comment: HDL > or equal to 60 mg/dL: Low cardiovascular riskHDL < 40 mg/dL : High cardiovascular risk Performed By: #### 2 959466, 7201669, 63592403, 7277091 ####[facility] [address] [place] [address] Cholesterol in LDL [Mass/Vol] 42 mg/dL Normal <=129 [facility] Comment on above: Performed By: #### 2 452030, 1231004, 29553270, 6978926 ####[facility] [address] [place] [address] Cholesterol in VLDL [Mass/Vol] 14 mg/dL Normal 7-40 [facility] Comment on above: Performed By: #### 2 201351, 6617921, 04889750, 9332255 ####[facility] [address] [place] [address] Triglyceride [Mass/Vol] 69 mg/dL Normal <=149 F [facility] Comment on above: Performed By: #### 2 317106, 2803407, 84745940, 4501683 ####[facility] [address] [place] [address] Physician Orderon 11-26-2022 Physician Order [id number]# 1.00CD:127 Normal [facility] TSHon 11-26-2022 TSH Qn 2.07 m[IU]/L Normal 0.34-5.60 [facility] Comment on above: Performed By: #### 2 128951, 3849272, 21243116, 6577662 ####[facility] [address] [place] [address] eGFRon 11-26-2022 GFR/1.73 sq M.predicted among non-blacks MDRD (S/P/Bld) [Vol rate/Area] 87 mL/min/1.73 m2 Normal >=59 [facility] Comment on above: Order Comment: Order added by Discern Expert. Result Comment: Food Preservation Scientist earnest kidney disease could be indicated at eGFR's of less than 60 mL/min/1.73m2. Kidney failure is indicated at less than 15 mL/min/1.73m2. Performed By: #### 2 867362, 2536956, 99183138, 4011164 ####[facility] [address] [place] [address] Discharge Instructionson Discharge Instructions [id number]#1 .00CD:127 Normal [facility] Transfer Documentson 023 Transfer Documents [id number]#1 .00CD:127 Normal [facility] Capillary Glucose POCon Glucose [Mass/Vol] 166 mg/dL High 55-99 [facility] Comment on above: Result Comment: Gareth guerrero RN/ Performed By: #### 2 73702935 ####[facility] [address] [place] [address] Glucose [Mass/Vol] 119 mg/dL High 55-99 [facility] Comment on above: Result Comment: Repe at Test Performed By: #### 2 53767417 ####[facility] [address] [place] [address] Discharge Note-Nursingon Discharge Note-Nursing Normal Fi [facility] [id number] 09-28-2022 HbA1c (Bld) [Mass fraction] 6.4 % High <=5.9 [facility] Comment on above: Order Comment: IF UN ABLE TO ADD TO ED LABS Performed By: #### 2 853203, [id number] ####[facility] [address] [place] [address] Inpatient Clinical Summaryon 09-28-2022 Inpatient Clinical Summary Normal [facility] Inpatient Patient Summaryon 09-28-2022 Inpatient Patient Summary Normal [facility] Inpatient Patient Summary Normal [facility] Interdisciplinary Note - Santosh e Manageron 09-28-2022 Interdisciplinary Note - Software Engineer Kernel Normal [facility] Comment on above: Result Comment: Elec tronically Signed By: Jose HAYDEN, Norma\.br\Date and Time Signed: 09/28/22 15:54 EDT Monitor Recordon 09-28-2022 Monitor Record [id number]# 1.00CD:127 Normal [facility] Capillary Glucose POCon Glucose [Mass/Vol] 192 mg/dL High 55-99 [facility] Comment on above: Result Comment: Gareth GARDINER Performed By: #### 2 74608318 ####[facility] [address] [place] [address] Glucose [Mass/Vol] 130 mg/dL High 55-99 [facility] Comment on above: Result Comment: No C overage Given Performed By: #### 2 88818216 ####[facility] [address] [place] [address] Glucose [Mass/Vol] 202 mg/dL High 55-99 [facility] Comment on above: Result Comment: Gareth GARDINER Performed By: #### 2 77989571 ####[facility] [address] [place] [address] Glucose [Mass/Vol] 89 mg/dL Normal 55-99 [facility] Comment on above: Result Comment: Gareth GARDINER Performed By: #### 2 49342108 ####[facility] [address] [place] [address] Insurance Correspondence Off iceon 09-27-2022 Insurance Correspondence Office [id number]# 1.00CD:127 Normal [facility] Interdisciplinary Note - Santosh e Manageron 09-27-2022 Interdisciplinary Note - Software Engineer Kernel Normal [facility] Comment on above: Result Comment: Elec tronically Signed By: Natalie Grant\Date and Time Signed: 09/27/22 14:56 EDT Interdisciplinary Note - PTo n 09-27-2022 Interdisciplinary Note - PT Pt is safe and indep w/bed mobility, transfers and gait w/FWW. Pt uses FWW at home; he is at his baseline. NO PT needs at this time. No needs anticipated upon d/c home. AM-PAC Normal [facility] Lyteson 09-27-2022 Anion gap [Moles/Vol] 9 mmol/L Normal 6-16 [facility] Comment on above: Performed By: #### 2 169332, 300195613 ####[facility] [address] [place] [address] Chloride [Moles/Vol] 105 mmol/L Normal 101-111 [facility] Comment on above: Performed By: #### 2 070495, 609414744 ####[facility] [address] [place] [address] CO2 [Moles/Vol] 26 mmol/L Normal 21-31 [facility] Comment on above: Performed By: #### 2 574355, 064091001 ####[facility] [address] [place] [address] Potassium [Moles/Vol] 4.2 mmol/L Normal 3.5-5.3 [facility] Comment on above: Performed By: #### 2 434131, 194278433 ####[facility] [address] [place] [address] Sodium [Moles/Vol] 136 mmol/L Normal 135-145 [facility] Comment on above: Performed By: #### 2 342011, 069618483 ####[facility] [address] [place] [address] Monitor Recordon 09-27-2022 Monitor Record [id number]# 1.00CD:127 Normal [facility] Monitor Record [id number]# 1.00CD:127 Normal [facility] Progress Note-Nurseon 2022 Progress Note-Nurse Normal [facility] Progress Note-Physicianon Progress Note-Physician Normal F [facility] Comment on above: Result Comment: Elec tronically Signed By: Adeline COLEMAN\.br\Date and Time Signed: 09/27/22 15:34 EDT\.br\Electronically Co-Signed By: Adeline COLEMAN\.br\Date and Time Co-Signed: 09/27/22 15:37 EDT\.br\Electronically Co-Signed By: Ganesh Minaya MD\.br\Date and Time Co-Signed: 09/27/22 18:58 EDT Auto Diffon 09-26-2022 Basophils/100 WBC (Bld) 0.5 % Normal 0.0-2.0 [facility] Comment on above: Order Comment: Order Added by Discern Expert. Performed By: #### 1 1022083, 1553797, 8089265, 3074454 ####[facility] [address] [place] [address] Basophils/Leukocytes Auto (Bld) [Pure # fraction] 0.0 E9/L Normal 0.0-0.2 [facility] Comment on above: Order Comment: Order Added by Discern Expert. Performed By: #### 1 6930771, 7028039, 5282758, 8195557 ####[facility] [address] [place] [address] Eosinophils/100 WBC (Bld) 3.3 % Normal 0.0-8.0 [facility] Comment on above: Order Comment: Order Added by Discern Expert. Performed By: #### 1 4298592, 0220716, 0187146, 3910799 ####[facility] [address] [place] [address] Eosinophils/Leukocytes Auto (Bld) [Pure # fraction] 0.3 E9/L Normal 0.0-0.5 [facility] Comment on above: Order Comment: Order Added by Discern Expert. Performed By: #### 1 8034496, 9341337, 7897462, 1553720 ####[address] [address] Lymphocytes/100 WBC (Bld) 9.5 % Low 14.0-50.0 [facility] Comment on above: Order Comment: Order Added by Discern Expert. Performed By: #### 1 9422181, 3450691, 7686899, 6124535 ####[address] [address] Lymphocytes/Leukocytes Auto (Bld) [Pure # fraction] 0.8 E9/L Low 1.0-4.0 [facility] Comment on above: Order Comment: Order Added by Discern Expert. Performed By: #### 1 3796154, 7534694, 1717825, 0294868 ####[address] [address] Monocytes/100 WBC (Bld) 7.2 % Normal 4.0-14.0 [facility] Comment on above: Order Comment: Order Added by Discern Expert. Performed By: #### 1 1029835, 5159298, 1131785, 5959008 ####[address] [address] Monocytes/Leukocytes Auto (Bld) [Pure # fraction] 0.6 E9/L Normal 0.2-1.0 [facility] Comment on above: Order Comment: Order Added by Discern Expert. Performed By: #### 1 2115532, 8266605, 9028791, 3982397 ####[address] [address] Neutrophils/100 WBC (Bld) 79.5 % High 36.0-75.0 [facility] Comment on above: Order Comment: Order Added by Discern Expert. Performed By: #### 1 5777266, 0638886, 6441570, 0128631 ####[facility] [address] [place] [address] Neutrophils/Leukocytes Auto (Bld) [Pure # fraction] 6.7 E9/L Normal 2.0-7.5 [facility] Comment on above: Order Comment: Order Added by Discern Expert. Performed By: #### 1 6327114, 0721123, 7002884, 7847520 ####[facility] [address] [place] [address] BMPon 09-26-2022 Creatinine [Mass/Vol] 1.0 mg/dL Normal 0.5-1.3 [facility] Comment on above: Performed By: #### 1 8245631, 1841360, 0085800, 7058435 ####[facility] [address] [place] [address] Urea nitrogen [Mass/Vol] 25 mg/dL High 5-21 [facility] Comment on above: Performed By: #### 1 9738170, 1126430, 5156532, 1879611 ####[facility] [address] [place] [address] Urea nitrogen/Creatinine [Mass ratio] 25 No Units High 10-20 [facility] Comment on above: Performed By: #### 1 4609046, 0582783, 9087551, 0318316 ####[facility] [address] [place] [address] Anion gap [Moles/Vol] 10 mmol/L Normal 6-16 [facility] Comment on above: Performed By: #### 1 9819334, 3865572, 4670365, 3465981 ####[facility] [address] [place] [address] Calcium [Mass/Vol] 8.9 mg/dL Normal 8.9-11.1 [facility] Comment on above: Performed By: #### 1 3896696, 0089777, 4221224, 2123018 ####[facility] [address] [place] [address] Chloride [Moles/Vol] 101 mmol/L Normal 101-[address] [facility] Comment on above: Performed By: #### 1 6810892, 4725240, 9315618, 8863098 ####[facility] [address] [place] [address] CO2 [Moles/Vol] 26 mmol/L Normal 21-31 [facility] Comment on above: Performed By: #### 1 0535126, 6385111, 8759136, 0668222 ####[facility] [address] [place] [address] Glucose [Mass/Vol] 112 mg/dL Normal 55-199 [facility] Comment on above: Result Comment: If t his glucose result represents a fasting glucose, interpretation should refer to the following reference range: 55-99 mg/dL Performed By: #### 1 9393271, 2507428, 1088494, 7027065 ####[facility] [address] [place] [address] Potassium [Moles/Vol] 4.1 mmol/L Normal 3.5-5.3 [facility] Comment on above: Performed By: #### 1 1686997, 7437798, 0639170, 0487321 ####[address] [place] [address] Sodium [Moles/Vol] 133 mmol/L Low 135-145 [facility] Comment on above: Performed By: #### 1 8932074, 4199995, 3006296, 7292606 ####[facility] [address] [place] [address] CBC w/ Auto Diffon 3 Erythrocyte distribution width (RBC) [Ratio] 14.6 % High 10.9-14.2 [facility] Comment on above: Performed By: #### 1 8246755, 6468511, 9773130, 5583016 ####[facility] [address] [place] [address] Hematocrit (Bld) [Volume fraction] 37.6 % Low 37.7-49.0 [facility] Comment on above: Performed By: #### 1 5283220, 6684986, 9548577, 2993838 ####[facility] [address] [place] [address] Hemoglobin (Bld) [Mass/Vol] 12.5 g/dL Low 13.5-17.5 [facility] Comment on above: Performed By: #### 1 9657624, 0258838, 5748585, 5354816 ####[place] [address] MCH (RBC) [Entitic mass] 28.5 pg Normal 27.0-34.0 [facility] Comment on above: Performed By: #### 1 4305002, 4380447, 1282239, 6241920 ####[address] [address] MCHC (RBC) [Mass/Vol] 33.2 g/dL Normal 31.4-36.0 [facility] Comment on above: Performed By: #### 1 1047066, 7230553, 8362025, 9371550 ####[address] [address] MCV (RBC) [Entitic vol] 85.8 fL Normal 80.0-100.0 [facility] Comment on above: Performed By: #### 1 3227797, 1320238, 9382376, 2681033 ####[address] [address] Platelet mean volume (Bld) [Entitic vol] 10.3 fL Normal 6.4-10.8 [facility] Comment on above: Performed By: #### 1 0925039, 2617774, 3658385, 5288865 ####[address] [address] Platelets (Bld) [#/Vol] 164.0 E9/L Normal 150.0-500.0 [facility] Comment on above: Performed By: #### 1 0827889, 4123610, 4614168, 2236276 ####[facility] [place] [address] RBC (Bld) [#/Vol] 4.4 E12/L Normal 4.3-5.9 [facility] Comment on above: Performed By: #### 1 1735922, 2049272, 6223188, 5323948 ####[facility] [address] [place] [address] WBC corrected for nucl RBC Auto (Bld) [#/Vol] 8.4 E9/L Normal 4.0-11.0 [facility] Comment on above: Performed By: #### 1 8216841, 0320375, 2827446, 0979551 ####[facility] [address] [place] [address] Capillary Glucose POCon Glucose [Mass/Vol] 161 mg/dL High 55-99 [facility] Comment on above: Result Comment: Gareth guerrero RN/ Performed By: #### 2 [id number] ####[facility] [address] [place] [address] Consent for Treatmenton Consent for Treatment [id number] Normal [facility] ED Clinical Summaryon 2022 ED Clinical Summary Normal [facility] ED Note-Physicianon 09-27-19 ED Note-Physician Normal [facility] Comment on above: Result Comment: Elec tronically Signed By: Shane Pan DO\.br\Date and Time Signed: 09/26/22 16:06 EDT ED Patient Education Noteon 09-26-2022 ED Patient Education Note Normal [facility] ED Patient Summaryon 023 ED Patient Summary Normal [facility] EMS Documentationon 09-27-19 EMS Documentation Normal [facility] EMS Documentation Normal [facility] Pre-Arrival Noteon Pre-Arrival Note Normal [facility] Progress Noteson 09-26-2022 Studio Operations Manager Authentication Interface Message Text EMERGENCY TRIAGE, TREAT AND TRANSPORT (ET3) DOCUMENTATION OF TELEHEALTH VISIT Date / Time: 09/26/2022929 Name: Clyde Humphrey : 1945 SSN: [id number] EMS Agency: [facility] [x] Verbal consent obtained [] Implied consent - patient with potential emergency medical condition requiring assessment of capacity to refuse treatment and/or transport VITAL SIGNS: see flowsheet documentation Reason for Telehealth Visit: hypoglycemia History of Present Illness: Patient woke with confusion this morning, called EMS. EMS notes patient had BS of 69, gave 50 ml D10 and BS gilbert to 168. Patient now at baseline per his , some confusion which is normal for him. declining transport, wishes to call his doctor. Takes metformin only for DM. Exam: General: Awake, no distress ENT: normocephalic, atraumatic Pulmonary: No respiratory distress Cardiovascular: Well perfused Neurologic: Oriented to person, place, time and events. Moving all extremities equally. Psychiatric: Appropriate. Good insight and judgement. Medical Decision Making: Advised concern for hypoglycemia in this patient not on insulin or oral hypoglycemics. calling doctor now with consideration for transport. Ended call with plan for likely transport, await PCP recs. Disposition Supported by Telehealth Assessment: ET3 transport decisions: Transport to hospital EMS Disposition Reported: Same ET3 Encounter Completed by: Coby Lugo MD Normal The [email or web address] UA With Cult Reflexon 2022 Bilirubin Ql (U) Negative Normal Negative [facility] Comment on above: Order Comment: can s traight cath if needed. Performed By: #### 1 [id number] ####[facility] [address] [place] [address] Clarity (U) CLEAR Normal Clear [facility] Comment on above: Order Comment: can s traight cath if needed. Performed By: #### 1 [id number] ####[facility] [address] [place] [address] Color (U) YELLOW Normal Yellow [facility] Comment on above: Order Comment: can s traight cath if needed. Performed By: #### 1 [id number] ####[facility] [address] [place] [address] Epithelial cells.squamous LM.HPF (Urine sed) [#/Area] 0-2 Normal 0-2 [facility] Comment on above: Order Comment: can s traight cath if needed. Performed By: #### 1 [id number] ####[facility] [address] [place] [address] Glucose Test strip (U) [Mass/Vol] Negative Normal Negative [facility] Comment on above: Order Comment: can s traight cath if needed. Performed By: #### 1 [id number] ####[facility] [address] [place] [address] Hemoglobin Ql (U) Negative Normal Negative [facility] Comment on above: Order Comment: can s traight cath if needed. Performed By: #### 1 [id number] ####[facility] [address] [place] [address] Ketones (U) [Mass/Vol] Negative Normal Negative [facility] Comment on above: Order Comment: can s traight cath if needed. Performed By: #### 1 [id number] ####[facility] [address] [place] [address] Panama.plasma/Panama.R BC (Bld) [Mass ratio] 0-3 Normal 0-3 [facility] Comment on above: Order Comment: can s traight cath if needed. Performed By: #### 1 [id number] ####[facility] [address] [place] [address] Nitrite Ql (U) Negative Normal Negative [facility] Comment on above: Order Comment: can s traight cath if needed. Performed By: #### 1 [id number] ####[facility] [address] [place] [address] pH (U) 5.5 [pH] Invalid Interpretation Code 5.0-9.0 [facility] Comment on above: Order Comment: can s traight cath if needed. Performed By: #### 1 [id number] ####[facility] [address] [place] [address] Protein (U) [Mass/Vol] Negative Normal Negative [facility] Comment on above: Order Comment: can s traight cath if needed. Performed By: #### 1 [id number] ####[facility] [address] [place] [address] Specific gravity (U) [Rel density] 1.025 Invalid Interpretation Code 1.005-1.030 [facility] Comment on above: Order Comment: can s traight cath if needed. Performed By: #### 1 [id number] ####[facility] [address] [place] [address] Type of Urine collection method Clean Catch Normal [facility] Comment on above: Order Comment: can s traight cath if needed. Performed By: #### 1 [id number] ####[address] [address] Urobilinogen Qn (U) 1.0 {Lei'U}/dL Normal 0.0-1.0 [facility] Comment on above: Order Comment: can s traight cath if needed. Performed By: #### 1 [id number] ####[facility] [address] [place] [address] WBC Auto Ql (U) Negative Normal Negative [facility] Comment on above: Order Comment: can s traight cath if needed. Performed By: #### 1 [id number] ####[facility] [address] [place] [address] WBC LM.HPF (Urine sed) [#/Area] 0-5 Normal 0-5 [facility] Comment on above: Order Comment: can s traight cath if needed. Performed By: #### 1 [id number] ####[facility] [address] [place] [address] XR Chest Single Viewon 09-26 XR Chest Single View Normal [facility] eGFRon 09-26-2022 GFR/1.73 sq M.predicted among non-blacks MDRD (S/P/Bld) [Vol rate/Area] 77 mL/min/1.73 m2 Normal >=59 [facility] Comment on above: Order Comment: Order added by Discern Expert. Result Comment: Food Preservation Scientist earnest kidney disease could be indicated at eGFR's of less than 60 mL/min/1.73m2. Kidney failure is indicated at less than 15 mL/min/1.73m2. Performed By: #### 1 [id number], [id number] ####[facility] [address] [place] [address] Progress Noteson 09-07-2022 Studio Operations Manager Authentication Interface Message Text EMERGENCY TRIAGE, TREAT AND TRANSPORT (ET3) DOCUMENTATION OF TELEHEALTH VISIT Date / Time: 09/06/20222146 Name: Clyde Humphrey : 1945 SSN: [id number] EMS Agency: [facility] [x] Verbal consent obtained [] Implied consent - patient with potential emergency medical condition requiring assessment of capacity to refuse treatment and/or transport VITAL SIGNS: see flowsheet documentation Reason for Telehealth Visit: Chief Complaint Patient presents with Fall History of Present Illness: Hx obtained from POA Barb Humphrey [birth year] alzheimer's 77M pmhx below, EMS called for fall, 2nd run of the day for the same, reports witnessed fall trying to put pants on foot slid out from under him hitting back and butt on the couch then to floor without head strike LOC NV n/t weakness AMS reported, unable to pick him up off the ground because she has a recent injury of her own. Pt no current complaints per POA who does not want the pt transported despite second fall and second EMS run of the day Additional pertinent PMHx, SocHx, FamHx: PMHx HLD DM PVD BENJAMIN obesity alzheimer's SocHx: Denies tobacco EtOH drugs Famhx reviewed and negative for history pertinent to current complaint Review of Systems: Denies the following: see hpi Exam: General: Awake, no distress ENT: normocephalic, atraumatic Pulmonary: No respiratory distress Cardiovascular: Well perfused Neurologic: baseline mental status. Moving all extremities equally. Psychiatric: normal affect Medical Decision MakinM pmhx as above, second mechanical fall of the day reportedly without complaints per POA but unreliable historian given alzhemiers disease, had lengthy d/w pt's and POA Barb Humphrey who does not want the pt transported to the hospital as falls were witnessed pt at baseline and without complaints, voiced my concerns for possible traumatic injuries as well as toxometabolic issues that may have caused falls, despite my recommendation POA still wishes pt not be transported, does agree to call PCP in AM for further eval, advised to go to nearest ED if AMS NV PETERS weakness Disposition Supported by Telehealth Assessment: ET3 transport decisions: Refused transport EMS Disposition Reported: Same ET3 Encounter Completed by: Marcelino Echavarria MD Normal [facility] [facility] Q - CULTURE,URINE,ROUTINEon 06-23-2021 CULTURE, URINE, ROUTINE SEE NOTE Normal [facility] Food Manager Comment on above: Order Comment: [facility] performed at: [employer] [facility], [address] [place] [address], [address] [place] [address], [id number], Computer Technician: Archie Sinha MD [facility] Collection Date/Time: [id number] [facility] Results Received Date/Time: [id number] [facility] Reported Date/Time: [id number] Result Comment: CULT URE, URINE, ROUTINE Micro Number: [id number] Test Status: Final Specimen Source: Urine Specimen Quality: Adequate Result: Mixed genital alvin isolated. These superficial bacteria are not indicative of a urinary tract infection. No further organism identification is warranted on this specimen. If clinically indicated, recollect clean-catch, mid-stream urine and transfer immediately to Urine Culture Transport Tube. Performed By: #### 6 [id number] #### [facility] Default [address] [place] [address] Q - CULTURE,URINE,ROUTINEon 05-05-2021 CULTURE, URINE, ROUTINE SEE NOTE Normal N [facility] Food Manager Comment on above: Order Comment: [facility] performed at: [employer] [facility], [address] [place] [address], [address] [place] [address], [phone], Computer Technician: Archie Sinha MD [facility] Collection Date/Time: [id number] [facility] Results Received Date/Time: [id number] [facility] Reported Date/Time: [id number] Result Comment: CULT URE, URINE, ROUTINE Micro Number: [id number] Test Status: Final Specimen Source: Urine Specimen Quality: Adequate Result: Growth of mixed alvin was isolated, suggesting probable contamination. No further testing will be performed. If clinically indicated, recollection using a method to minimize contamination, with prompt transfer to Urine Culture Transport Tube, is recommended. Performed By: #### 6 [id number] #### [facility] Default [address] [place] [address] Vital Signs Date Time Vital Sign Value Performing Clinician Facility 01-24-2023 10:00-0400 Hourly Rounding Mbanefo OJUKWU [facility] 01-24-2023 10:00-0400 Promise to Return Mbanefo OJUKWU [facility] 01-24-2023 09:00-0400 Hourly Rounding Mbanefo OJUKWU [facility] 01-24-2023 09:00-0400 Promise to Return Mbanefo OJUKWU [facility] 01-24-2023 08:29-0400 Diastolic blood pressure 73 mm[Hg] Mbanefo OJUKWU [facility] 01-24-2023 08:29-0400 Systolic blood pressure 157 mm[Hg] Mbanefo OJUKWU [facility] 01-24-2023 08:27-0400 Blood Pressure Location Mbanefo OJUKWU [facility] 01-24-2023 08:27-0400 Body temperature 97.7 [degF] Mbanefo OJUKWU [facility] 01-24-2023 08:27-0400 Diastolic blood pressure 73 mm[Hg] Mbanefo OJUKWU [facility] 01-24-2023 08:27-0400 Heart rate 82 /min Mbanefo OJUKWU [facility] 01-24-2023 08:27-0400 Respiratory rate 16 /min Mbanefo OJUKWU [facility] 01-24-2023 08:27-0400 Systolic blood pressure 157 mm[Hg] Mbanefo OJUKWU [facility] 01-24-2023 08:00-0400 Hourly Rounding Mbanefo OJUKWU [facility] 01-24-2023 08:00-0400 Promise to Return Mbanefo OJUKWU [facility] 01-24-2023 00:05-0400 Blood Pressure Location Mbanefo OJUKWU [facility] 01-24-2023 00:05-0400 Body temperature 97.7 [degF] Mbanefo OJUKWU [facility] 01-24-2023 00:05-0400 Diastolic blood pressure 76 mm[Hg] Mbanefo OJUKWU [facility] 01-24-2023 00:05-0400 Heart rate 83 /min Mbanefo OJUKWU [facility] 01-24-2023 00:05-0400 Mean blood pressure 99 mm[Hg] Mbanefo OJUKWU [facility] 01-24-2023 00:05-0400 SaO2% (BldA) [Mass fraction] 97 % Mbanefo OJUKWU [facility] 01-24-2023 00:05-0400 Systolic blood pressure 144 mm[Hg] Mbanefo OJUKWU [facility] 01-23-2023 19:36-0400 Heart rate 81 /min Mbanefo OJUKWU [facility] 01-23-2023 19:36-0400 SaO2% (BldA) [Mass fraction] 96 % Mbanefo OJUKWU [facility] 01-23-2023 19:36-0400 Body temperature 97.34 [degF] Mbanefo OJUKWU [facility] 01-23-2023 19:34-0400 Mean blood pressure 83 mm[Hg] Mbanefo OJUKWU [facility] 01-23-2023 13:00-0400 Body temperature 98.06 [degF] Mbanefo OJUKWU [facility] 01-23-2023 06:55-0400 Blood Pressure Location Mbanefo OJUKWU [facility] 01-23-2023 06:55-0400 Mean blood pressure 89 mm[Hg] Mbanefo OJUKWU [facility] 01-23-2023 06:55-0400 Respiratory rate 16 /min Mbanefo OJUKWU [facility] 01-23-2023 06:55-0400 SaO2% (BldA) [Mass fraction] 93 % Mbanefo OJUKWU [facility] 01-22-2023 23:00-0400 Body temperature 97.88 [degF] Mbanefo OJUKWU [facility] 01-22-2023 23:00-0400 Mean blood pressure 82 mm[Hg] Mbanefo OJUKWU [facility] 01-22-2023 23:00-0400 Respiratory rate 18 /min Mbanefo OJUKWU [facility] 01-22-2023 18:37-0400 Body temperature 97.52 [degF] Mbanefo OJUKWU [facility] 01-22-2023 18:36-0400 Mean blood pressure 81 mm[Hg] Mbanefo OJUKWU [facility] 01-22-2023 16:09-0400 Mean blood pressure 81 mm[Hg] Mbanefo OJUKWU [facility] 01-22-2023 16:07-0400 Body temperature 97.52 [degF] Mbanefo OJUKWU [facility] 01-22-2023 04:50-0400 Heart rate 77 /min Mbanefo OJUKWU [facility] 01-21-2023 21:09-0400 Heart rate 85 /min Mbanefo OJUKWU [facility] 01-21-2023 15:11-0400 Heart rate 78 /min Mbanefo OJUKWU [facility] 12-20-2022 09:37-0400 Hourly Rounding Maycol CAGLE [facility] 12-20-2022 09:37-0400 Promise to Return Maycolyasmine ARRIOLASLIN [facility] 12-20-2022 09:06-0400 Heart rate 65 /min Maycolyasmine ARRIOLASLIN [facility] 12-20-2022 09:06-0400 Respiratory rate 20 /min Maycolyasmine ARRIOLASLIN [facility] 12-20-2022 09:06-0400 SaO2% (BldA) [Mass fraction] 92 % Maycol TSERING [facility] 12-20-2022 08:56-0400 Heart rate 61 /min Maycol TSERING [facility] 12-20-2022 08:56-0400 Respiratory rate 20 /min Maycol TSERING [facility] 12-20-2022 08:56-0400 SaO2% (BldA) [Mass fraction] 92 % Maycol TSERING [facility] 12-20-2022 08:51-0400 Hourly Rounding Maycol TSERING [facility] 12-20-2022 08:51-0400 Promise to Return Maycol TSERING [facility] 12-20-2022 08:50-0400 Hourly Rounding Maycol TSERING [facility] 12-20-2022 08:31-0400 Promise to Return Maycol TSERING [facility] 12-20-2022 07:29-0400 Heart rate 60 /min Maycol TSERING [facility] 12-20-2022 07:29-0400 SaO2% (BldA) [Mass fraction] 93 % Maycol TSERING [facility] 12-20-2022 07:28-0400 Body temperature 98.06 [degF] Maycol TSERING [facility] 12-20-2022 07:28-0400 Diastolic blood pressure 69 mm[Hg] Maycol TSERING [facility] 12-20-2022 07:28-0400 Mean blood pressure 94 mm[Hg] Maycol TSERING [facility] 12-20-2022 07:28-0400 Systolic blood pressure 143 mm[Hg] Maycol TSERING [facility] 12-20-2022 03:25-0400 Respiratory rate 16 /min Maycol TSERING [facility] 12-20-2022 00:15-0400 Body temperature 97.7 [degF] Maycol TSERING [facility] 12-20-2022 00:15-0400 Diastolic blood pressure 56 mm[Hg] Maycol TSERING [facility] 12-20-2022 00:15-0400 Systolic blood pressure 135 mm[Hg] Maycol TSERING [facility] 12-19-2022 19:28-0400 Body temperature 98.42 [degF] Maycol TSERING [facility] 12-19-2022 19:27-0400 Diastolic blood pressure 69 mm[Hg] Maycol TSERING [facility] 12-19-2022 19:27-0400 Mean blood pressure 90 mm[Hg] Maycol TSERING [facility] 12-19-2022 19:27-0400 Systolic blood pressure 134 mm[Hg] Maycol TSERIGN [facility] 12-19-2022 16:26-0400 gluc 111 mg/dL Maycol TSERING [facility] 12-19-2022 16:06-0400 Mean blood pressure 95 mm[Hg] Maycol TSERING [facility] 12-19-2022 16:00-0400 Body temperature 98.06 [degF] Maycol TSERING [facility] 12-19-2022 11:58-0400 gluc 201 mg/dL Maycol TSERING [facility] 12-19-2022 08:18-0400 gluc 93 mg/dL Maycol TSERING [facility] 12-19-2022 08:00-0400 Body temperature 98.6 [degF] Maycol TSERING [facility] 12-18-2022 05:46-0400 Blood Pressure Location Maycol TSERING [facility] 12-18-2022 05:46-0400 Heart rate 67 /min Maycol TSERING [facility] 12-18-2022 05:00-0400 Body temperature 98.42 [degF] Maycol TSERING [facility] 12-18-2022 05:00-0400 Mean blood pressure 78 mm[Hg] Maycol TSERING [facility] 12-18-2022 05:00-0400 Respiratory rate 20 /min Maycol TSERING [facility] 12-18-2022 04:00-0400 Mean blood pressure 77 mm[Hg] Maycol TSERING [facility] 12-18-2022 04:00-0400 Respiratory rate 21 /min Maycol TSERING [facility] 12-18-2022 03:00-0400 Mean blood pressure 75 mm[Hg] Maycol TSERING [facility] 12-18-2022 03:00-0400 Respiratory rate 22 /min Maycol TSERING [facility] 07-28-2023 00:09-0400 Heart rate 85 /min Maycol TSERING [facility] 12-17-2022 23:54-0400 Heart rate 86 /min Maycol TSERING [facility] 12-02-2022 14:00-0400 SaO2% (BldA) [Mass fraction] 93 % Maycol TSERING [facility] 12-02-2022 13:00-0400 Hourly Rounding Macyol TSERING [facility] 12-02-2022 13:00-0400 Promise to Return Maycol TSERING [facility] 12-02-2022 12:58-0400 Heart rate 85 /min Maycol TSERING [facility] 12-02-2022 12:58-0400 SaO2% (BldA) [Mass fraction] 88 % Maycol TSERING [facility] 12-02-2022 12:58-0400 Body temperature 97.7 [degF] Maycol TSERING [facility] 12-02-2022 12:58-0400 Diastolic blood pressure 75 mm[Hg] Maycol TSERING [facility] 12-02-2022 12:58-0400 Mean blood pressure 102 mm[Hg] Maycol TSERING [facility] 12-02-2022 12:58-0400 Systolic blood pressure 157 mm[Hg] Maycol TSERING [facility] 12-02-2022 12:10-0400 Hourly Rounding Maycol TSERING [facility] 12-02-2022 12:10-0400 Promise to Return Maycol TSERING [facility] 12-02-2022 11:30-0400 Hourly Rounding Maycol TSERING [facility] 12-02-2022 11:30-0400 Promise to Return Maycol TSERING [facility] 12-02-2022 08:00-0400 Blood Pressure Location Maycol TSERING [facility] 12-02-2022 08:00-0400 Diastolic blood pressure 79 mm[Hg] Maycol TSERING [facility] 12-02-2022 08:00-0400 gluc 127 mg/dL Maycol TSERING [facility] 12-02-2022 08:00-0400 Heart rate 76 /min Maycol TSERING [facility] 12-02-2022 08:00-0400 Respiratory rate 20 /min Maycol TSERING [facility] 12-02-2022 08:00-0400 Systolic blood pressure 141 mm[Hg] Maycol TSERING [facility] 12-02-2022 07:46-0400 Heart rate 66 /min Maycol TSERING [facility] 12-02-2022 07:46-0400 Respiratory rate 18 /min Maycol TSERING [facility] 12-02-2022 07:40-0400 Respiratory rate 18 /min Maycol TSERING [facility] 12-01-2022 23:32-0400 Body temperature 97.16 [degF] Maycol TSERING [facility] 07-11-2023 23:32-0400 Diastolic blood pressure 77 mm[Hg] Maycol TSERING [facility] 12-01-2022 23:32-0400 Mean blood pressure 101 mm[Hg] Maycol TSERING [facility] 12-01-2022 23:32-0400 Systolic blood pressure 130 mm[Hg] Maycol TSERING [facility] 12-01-2022 20:01-0400 Body temperature 97.16 [degF] Maycol TSERING [facility] 12-01-2022 20:01-0400 Mean blood pressure 101 mm[Hg] Maycol TSERING [facility] 12-01-2022 12:07-0400 Body temperature 97.52 [degF] Maycol TSERING [facility] 12-01-2022 07:30-0400 Body temperature 96.98 [degF] Maycol TSERING [facility] 12-01-2022 06:00-0400 gluc 110 mg/dL Maycol TSERING [facility] 11-30-2022 23:32-0400 FIO2 30 % Maycol TSERING [facility] 11-30-2022 20:04-0400 Mean blood pressure 98 mm[Hg] Maycol TSERING [facility] 11-30-2022 04:38-0400 Mean blood pressure 91 mm[Hg] Maycol TSERING [facility] 11-29-2022 20:16-0400 FIO2 30 % Maycol TSERING [facility] 11-29-2022 19:00-0400 Blood Pressure Location Maycol TSERING [facility] 11-29-2022 08:10-0400 FIO2 30 % Maycol CAGLE [facility] 11-29-2022 04:08-0400 gluc 107 mg/dL Maycol CAGLE [facility] 11-29-2022 04:08-0400 Mean blood pressure 80 mm[Hg] Maycol CAGLE [facility] 11-29-2022 00:16-0400 Heart rate 48 /min Maycol CAGLE [facility] 11-28-2022 22:55-0400 Respiratory rate 19 /min Maycol CAGLE [facility] 11-28-2022 21:45-0400 Respiratory rate 18 /min Maycol CAGLE [facility] 11-28-2022 20:45-0400 Respiratory rate 22 /min Maycol CAGLE [facility] 11-28-2022 18:55-0400 SaO2% (BldA) [Mass fraction] 95.4 % Maycol CAGLE [facility] Resp Auto SS 11-28-2022 17:13-0400 Heart rate 59 /min Maycol CAGLE [facility] 09-07-2022 01:10-0400 Diastolic blood pressure 53 mm[Hg] [facility]-07-[facility] 01:10-0400 Heart rate 70 /min [facility] 09-07-2022 01:10-0400 SaO2% (BldA) [Mass fraction] 96 % [facility] 09-07-2022 01:10-0400 Systolic blood pressure 135 mm[Hg] Et3 [facility] Encounters Encounter Date Encounter Type Care Provider Facility Start: 02-01-2023 ambulatory Robin Garcia acility:[facility] Start: 01-21-2023 End: 01-24-2023 Evaluation and management of inpatient [place] Facility:[facility] Start: 01-21-2023 End: 01-24-2023 Evaluation and management of inpatient Steve MayesJUKWTory [facility] Start: 01-15-2023 End: 01-16-2023 ambulatory Donta SHAISTA Facility:CD:[id number] Start: 01-15-2023 End: 01-15-2023 Off-Site [facility] Start: 12-22-2022 End: 12-23-2022 ambulatory Donta SHAISTA Facility:CD:[id number] Start: 12-22-2022 End: 12-22-2022 Off-Site [facility] Start: 12-18-2022 End: 12-20-2022 Evaluation and management of inpatient Maycol CAGLE Facility:[facility] Start: 12-17-2022 End: 12-20-2022 Evaluation and management of inpatient Maycol CAGLE [facility] Start: 12-14-2022 End: 01-16-2023 ambulatory Donta SHAISTA Facility:CD:[id number] Start: 12-14-2022 End: 01-16-2023 [facility] Start: 12-11-2022 ambulatory Dontasaroj NOONAN Facilit y:LUISA Rodas Start: 12-03-2022 End: 12-03-2022 Off-Site [facility] Start: 12-03-2022 End: 12-04-2022 ambulatory Donta NOONAN Facility:CD:[id number] Start: 12-02-2022 End: 01-16-2023 ambulatory Donta NOONAN Facility:[facility] Start: 11-30-2022 ambulatory Facility:[id number] Start: 11-30-2022 ambulatory Facility:[id number] Start: 11-29-2022 ambulatory Facility:[id number] Start: 11-29-2022 End: 12-02-2022 Evaluation and management of inpatient Maycol CAGLE Facility:[facility] Start: 11-28-2022 End: 12-02-2022 Evaluation and management of inpatient Maycol CAGLE [facility] Start: 11-26-2022 End: 11-27-2022 ambulatory Bienvenido Barroso Facility:[facility] Start: 11-26-2022 End: 11-26-2022 Patient encounter procedure Bienvenido Barroso [facility] Start: 09-26-2022 End: 09-28-2022 ambulatory UNKNOWN PROVIDER Facility:[facility] Start: 09-07-2022 End: 09-08-2022 ambulatory UNKNOWN PROVIDER Facility:[facility] Start: 2022 End: 2022 ambulatory [facility] Emergenc y Triage, Treat and Transport Start: 2022 End: 2022 Emergency department patient visit [facility] Emergency Triage, Treat and Transport Comment on above: Arrived Procedures Date Procedure Procedure Detail Performing Clinician Start: 08-03-2016 Cataract Extraction with intraocular lens implant left eye [facility] Start: 10-22-2014 right cataract extra ction with intraocular lens placment, manual dilatation of the iris with a Malyugin ring [facility] heart stents B[facility]ido Barroso multiple ear surgeries [facility] Plan of Treatment Date Care Activity Detail Author Start: 09-21-2022 Annual Wellness Visi t (G0439) Annual Wellness Visit (G0439) [facility] Start: 05-14-2018 Pneumococcal vaccination Pneum ococcal Vaccine(s) (65+ yrs) (2 - PPSV23 if available, else PCV20) [facility] Start: 1994 Shingles (RZV) Vacci ne (1 of 2) Shingles (RZV) Vaccine (1 of 2) [facility] Start: 1962 Hepatitis C screening Hepatitis C An tibody [facility] Start: 1962 Tetanus + diphtheria + acellular pertussis vaccine (product) Tdap Booster [facility] Immunizations Immunization Date Immunization Notes Care Provider Fa [facility] 03-12-2022 SARS-CoV-2 (COVID-19 ) mRNAMUL.ORD![id number] Donta NOONAN [facility] 03-17-2021 Influenza, injectabl e, high-dose seasonal, quadrivalent, 0.7 mL, preservative free (YGT=562) [facility] 07-15-2020 Pfizer (12+ yrs) SARS-COV-2 (COVID-19) vaccine, mRNA, spike protein, LNP, pres. free, 30 mcg/0.3mL dose (QIN=034) [facility] 06-26-2020 Pfizer (12+ yrs) SARS-COV-2 (COVID-19) vaccine, mRNA, spike protein, LNP, pres. free, 30 mcg/0.3mL dose (PJA=438) [facility] 06-23-2019 influenza, high dose seasonal, preservative-free [facility] 05-14-2017 influenza, high dose seasonal, preservative-free [facility] 05-14-2017 pneumococcal conjuga te vaccine, 13 valent [facility]3 [facility] 04-04-2014 influenza, injectabl e, madin cee canine kidney, preservative free [facility] NEGATED: Highlighted row has not occurred!06-15-2014 pneumococcal polysaccharide vaccine, 23 valent [facility] Barro[facility] Comment on above: Result Note: pt had vaccine last year per Payers Date Payer Category Payer Self-pay 2022 Unknown [id number] 2022 Medicare [facility] [id number] 2022-Present [address] [place] [address] Medicare [id number] 2022 Unknown [id number] 1944 Unknown [id number] [id number] 1944 Unknown [id number] 2.16.840.1.079671.3.579.2.732 1944 Unknown [id number] 2.16.840.1.471223.3.579.2.356 1944 Unknown [id number] 2.16.840.1.323416.3.579.2.356 1944 Unknown [id number] 2.16.840.1.640619.3.579.2.356 1944 Unknown [id number] 2.16.840.1.501261.3.579.2.727 1944 Unknown [id number] 2.16.840.1.308296.3.579.2.727 1944 Unknown [id number] 2.16.840.1.345735.3.579.2.727 1944 Unknown [id number] 2.16.840.1.518689.3.579.2.727 1944 Unknown [id number] 2.16.840.1.737993.3.579.2.727 1944 Unknown [id number] 2.16.840.1.657569.3.579.2.727 1944 Unknown [id number] 2.16.840.1.330885.3.579.2.727 1944 Unknown [id number] 2.16.840.1.251117.3.579.2.727 1944 Unknown [id number] 2.16.840.1.650592.3.579.2.727 1944 Unknown [id number] 2.16.840.1.629711.3.579.2.72 1944 Unknown [id number] 2.16.840.1.768322.3.579.2.727 1944 Unknown [id number] 2.16.840.1.041355.3.579.2.727 Social History Date Type Detail Facility Tobacco smoking status CTIS Tobacco smoking consumption unknown [facility] Start: 1945 Sex Assigned At Not [facility] file [facility] Start: 04-24-2021 Tobacco smoking status Ex-smoker (finding) [facility] Sex Assigned At Male [facility] Functional Status Date Assessment Result Facility 01-21-2023 Functional Status No [facility] 01-21-2023 Functional Status [facility] 12-18-2022 Functional Status N/A [facility] 12-17-2022 Functional Status [facility] 11-29-2022 Functional Status N/A [facility] 11-28-2022 Functional Status [facility] Clinical Notes 09-07-2022 to 01-24-2023 Note Date & Type Note Facility 01-24-2023 Evaluation + Plan note Extrac gi from: Title:Discharge Note Author:New Johnson DO Date:01/24/23 Discharge To, Anticipated II - [facility]sp Unit Discharged to - Home independently Transported by, Anticipated - Wheelchair van Prescriptions aspirin 81 mg Oral EC Tab, 81 mg= 1 tab(s), Oral, Daily cholecalciferol 2000 intl units oral tablet (Vitamin D3), 50 mcg= 1 tab(s), Oral, Daily, 4 refills citalopram 20 mg Tab, 20 mg= 1 tab(s), Oral, Daily, 4 refills furosemide 40 mg Tab, 40 mg= 1 tab(s), Oral, Daily, 1 refills quetiapine 25 mg Tab, See Instructions, 1 refills spironolactone 25 mg Tab, 25 mg= 1 tab(s), Oral, Daily, 1 refills Home acetaminophen 325 mg Tab, 650 mg= 2 tab(s), Oral, q6hr, PRN, Not taking cetirizine 10 mg oral capsule, 10 mg= 1 cap(s), Oral, Daily, PRN lovastatin 40 mg Tab, 40 mg= 1 tab(s), Oral, Once a day (at bedtime) metformin 1000 mg Tab, 1000 mg= 1 tab(s), Oral, BID tamsulosin 0.4 mg Cap, 0.4 mg= 1 cap(s), Oral, BID With When Contact Information Dharmesh POTTS, Bienvenido Chavira, [facility] [place] [address]- Additional Instructions: Dementia, Sxac-ds-Zxeg Extracted from: Title:APSO Note Author:New Johnson DO Gerry e:01/23/23 1. Generalized weakness (R53 .1: Weakness) IV fluids, trend BUN and creatinine PT/OT Currently awaiting pre-CERT for placement 2. Alzheimers disease (G30.9: Alzheimer's disease, unspecified) Continue Seroquel 3. 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 COPD (J44.9: Chronic obstructive pulmonary disease, unspecified) Stable, breathing treatments if needed 5. Chronic diastolic heart failure (I50.32: Chronic diastolic (congestive) heart failure) Continue Lasix and spironolactone 6. DM (diabetes mellitus) (E11.9: Type 2 diabetes mellitus without complications) Continue metformin Patient appears to be on glimepiride at home and will hold due to possibility of hypoglycemia Will monitor Accu-Cheks 7. Hypertension (I10: Essential (primary) hypertension) Stable, monitor 8. BENJAMIN (obstructive sleep apnea) (G47.33: Obstructive sleep apnea (adult) (pediatric)) CPAP at night Orders: May use own CPAP machine as per home Occupational Therapy Additional Tx Occupational Therapy Evaluate Patient, Develop a Plan of Care and Implement Plan Physical Therapy Additional Tx Physical Therapy Evaluate Patient, Develop a Plan of Care and Implement Plan Referral to Resource Center Extracted from: Title:APSO Note Author:New Johnson DO Gerry e:01/22/23 1. Generalized weakness (R53 .1: Weakness) IV fluids, trend BUN and creatinine PT/OT We will likely need placement Ordered: Initial Hospital Care/Day Moderate 55 Minutes [id number] Sbsq Hospital Care/Day Straight Fwd 25 Minutes [id number] 2. Alzheimers disease (G30.9: Alzheimer's disease, unspecified) Continue Seroquel 3. 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 COPD (J44.9: Chronic obstructive pulmonary disease, unspecified) Stable, breathing treatments if needed 5. Chronic diastolic heart failure (I50.32: Chronic diastolic (congestive) heart failure) Continue Lasix and spironolactone 6. DM (diabetes mellitus) (E11.9: Type 2 diabetes mellitus without complications) Continue metformin Patient appears to be on glimepiride at home we will hold due to possibility of hypoglycemia. Will monitor Accu checks 7. Hypertension (I10: Essential (primary) hypertension) Stable, monitor 8. BENJAMIN (obstructive sleep apnea) (G47.33: Obstructive sleep apnea (adult) (pediatric)) CPAP at night Orders: acetaminophen, 650 mg = 2 tab(s), Tab, Oral, q6hr PRN Pain, Routine, Start date 01/21/23 17:51:00 EDT, 01/21/23 17:51:00 EDT heparin, 5,000 unit(s) = 1 mL, Injection, SubCutaneous, BID for 30 day(s), Stop date 02/20/23 20:59:00 EDT, Routine, Start date 01/21/23 21:00:00 EDT, 01/21/23 17:51:00 EDT hydrALAZINE, 10 mg = 0.5 mL, Injection, IV Push, q6hr PRN Other (see comment), Routine, Start date 01/21/23 17:51:00 EDT, 01/21/23 17:51:00 EDT Ambulate with Assistance Automated Diff CBC w/ Auto Diff Comprehensive Metabolic Panel eGFR May use own CPAP machine as per home Occupational Therapy Additional Tx Occupational Therapy Evaluate Patient, Develop a Plan of Care and Implement Plan Physical Therapy Additional Tx Physical Therapy Evaluate Patient, Develop a Plan of Care and Implement Plan Precautions Regular Diet Resuscitation Status - Full Vital Signs Weight Extracted from: Title:ED Note Author:Gustavo Yusuf DO Date: 1. Generalized weakness (R53 .1: Weakness) 2. Alzheimers disease (G30.9: Alzheimer's disease, unspecified) 3. CAD in hus[place] artery (I25.10: Atherosclerotic heart disease of hus[place] coronary artery without angina pectoris) 4. COPD (J44.9: Chronic obstructive pulmonary disease, unspecified) 5. Chronic diastolic heart failure (I50.32: Chronic diastolic (congestive) heart failure) 6. DM (diabetes mellitus) (E11.9: Type 2 diabetes mellitus without complications) 7. Hypertension (I10: Essential (primary) hypertension) 8. BENJAMIN (obstructive sleep apnea) (G47.33: Obstructive sleep apnea (adult) (pediatric)) Dementia in other diseases classified elsewhere, unspecified severity, without behavioral disturbance, psychotic disturbance, mood disturbance, and anxiety (F02.80: Dementia in other diseases classified elsewhere, unspecified severity, without behavioral disturbance, psychotic disturbance, mood disturbance, and anxiety) Orders: Automated Diff Basic Metabolic Panel CBC w/ Auto Diff eGFR Extra Blue Tube Extra SST Tube Hepatic Function Panel Saline Lock Insert Troponin 0 Hr. Troponin 3 Hr. UA With Cult Reflex XR Chest Single View Extracted from: Title:Admission H & P Author:New Johnson DO Date:01/21/23 1. Generalized weakness (R53 .1: Weakness) IV fluids, trend BUN and creatinine PT/OT We will likely need placement Ordered: Initial Hospital Care/Day Moderate 55 Minutes [id number] 2. Alzheimers disease (G30.9: Alzheimer's disease, unspecified) Continue Seroquel 3. 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 COPD (J44.9: Chronic obstructive pulmonary disease, unspecified) Stable, breathing treatment if needed 5. Chronic diastolic heart failure (I50.32: Chronic diastolic (congestive) heart failure) Continue Lasix and spironolactone 6. DM (diabetes mellitus) (E11.9: Type 2 diabetes mellitus without complications) Continue metformin, Patient apparently on glimepiride at home, will hold due to possibility of hypoglycemia 7. Hypertension (I10: Essential (primary) hypertension) Stable, continue to monitor 8. BENJAMIN (obstructive sleep apnea) (G47.33: Obstructive sleep apnea (adult) (pediatric)) CPAP at night Dementia in other diseases classified elsewhere, unspecified severity, without behavioral disturbance, psychotic disturbance, mood disturbance, and anxiety (F02.80: Dementia in other diseases classified elsewhere, unspecified severity, without behavioral disturbance, psychotic disturbance, mood disturbance, and anxiety) Orders: acetaminophen, 650 mg = 2 tab(s), Tab, Oral, q6hr PRN Pain, Routine, Start date 01/21/23 17:51:00 EDT, 01/21/23 17:51:00 EDT heparin, 5,000 unit(s) = 1 mL, Injection, SubCutaneous, BID for 30 day(s), Stop date 02/20/23 20:59:00 EDT, Routine, Start date 01/21/23 21:00:00 EDT, 01/21/23 17:51:00 EDT hydrALAZINE, 10 mg = 0.5 mL, Injection, IV Push, q6hr PRN Other (see comment), Routine, Start date 01/21/23 17:51:00 EDT, 01/21/23 17:51:00 EDT Ambulate with Assistance CBC w/ Auto Diff Comprehensive Metabolic Panel Occupational Therapy Evaluate Patient, Develop a Plan of Care and Implement Plan Physical Therapy Evaluate Patient, Develop a Plan of Care and Implement Plan Precautions Regular Diet Resuscitation Status - Full Vital Signs Weight DVT prophylaxis heparin twice daily Diet regular CODE STATUS full code Patient was admitted under inpatient service due to estimated length of stay greater than 2 midnights due to patient will need rehabilitation to maintain balance, improving gait and building on physical strength. [facility] NoteLutheran HospitalComment on above:Result Comment: Electronically Signed By: New Johnson DO.candice\Date and Time Signed: 01/24/23 09:57 [id number] Hospital Discharge instructions Patient Education 01/24/2023 09:54:03 Dementia, Mucl-hg-Corh Dementia Dementia is a condition that affects the way the brain works. It often affects memory and thinking.There are many types of dementia. Some types get worse with time and cannot be reversed. Some typesof dementia include: Alzheimer's disease. This is the most common type. Vascular dementia. This type may happen due to a stroke. Lewy body dementia. This type may happen to people who have Parkinson's disease. Frontotemporal dementia. This type is caused by damage to nerve cells in certain parts of the brain. Some people may have more than one type. What are the causes? This condition is caused by damage to cells in the brain. Some causes that cannot be reversed include: Having a condition that affects the blood vessels of the brain, such as diabetes, heart disease, orblood vessel disease. Changes to genes. Some causes that can be reversed or slowed include: Injury to the brain. Certain medicines. Infection. Not having enough vitamin B12 in the body, or thyroid problems. A tumor, blood clot, or too much fluid in the brain. Certain diseases that cause your body's defense system (immune system) to attack healthy parts of the body. What are the signs or symptoms? Problems remembering events or people. Having trouble taking a bath or putting clothes on. Forgetting appointments. Forgetting to pay bills. Trouble planning and making meals. Having trouble speaking. Getting lost easily. Changes in behavior or mood. How is this treated? Treatment depends on the cause of the dementia. It might include: Taking medicines for symptoms or to help control or slow down the dementia. Treating the cause of your dementia. Your doctor can help you find support groups and other doctors who can help with your care. Follow these instructions at home: Medicines Take bneq-swr-dzenmpp and prescription medicines only as told by your doctor. Use a pill organizer to help you manage your medicines. Avoidtaking medicines for pain or for sleep. Lifestyle Make healthy choices: ?Be active as told by your doctor. ?Do not smoke or use any products that contain nicotine or tobacco. If you need help quitting, ask your doctor. ?Do not drink alcohol. ?When you get stressed, do something that will help you relax. Your doctor can give you tips. ?Spend time with other people. Make sure you get good sleep. To get good sleep: ?Try not to take naps during the day. ?Keep your bedroom dark and cool. ?In the few hours before you go to bed, try not to do any exercise. ?Do not have foods and drinks with caffeine at night. Eating and drinking Drink enough fluid to keep your pee (urine) pale yellow. Eat a healthy diet. General instructions Talk with your doctor to figure out: ?What you need help with. ?What your safety needs are. Ask your doctor if it is safe for you to drive. If told, wear a bracelet that tracks where you are or shows that you are a person with memory loss. Work with your family to make big decisions. Keep all follow-up visits. Where to find more information Alzheimer's Association: www.alz.org National [place] on Aging: www.susie.nih.gov/alzheimers World Health Organization: www.who.int Contact a doctor if: You have any new symptoms. Your symptoms get worse. You have problems with swallowing or choking. Get help right away if: You feel very sad, or feel that you want to harm yourself. Your family members are worried for your safety. Get help right away if you feel like you may hurt yourself or others, or have thoughts about takingyour own life. Go to your nearest emergency room or: Call your local emergency services (811 in the [place] Call the National Suicide Prevention Lifeline at or 818 in the [place] This is open 24 hours a day. Text the Crisis Text Line at 934672. Summary Dementia often affects memory and thinking. Some types of dementia get worse with time and cannot be reversed. Treatment for this condition depends on the cause. Talk with your doctor to figure out what you need help with. Your doctor can help you find support groups and other doctors who can help with your care. This information is not intended to replace advice given to you by your health care provider. Make sure you discuss any questions you have with your health care provider. Document Revised: 12/03/2021 Document Reviewed: 09/23/2020 [employer] Patient Education 2022 [employer] Follow Up Care 01/21/2023 15:06:04 With:Dharmesh POTTS, Bienvenido Chavira [facility] Address: [address] [place] [address]- When: Unknown [facility]08-31-2023 NoteFisher [facility] HospitalComment on above:Result Comment: Electronically Signed By: New Johnson DO.br\Date and Time Signed: 01/21/23 17:53 [id number] Evaluation + Plan note Extracted from: Title:Discharge Note Author:MICHAEL POTTS, Jamir Gerry e:12/20/22 stable Discharge To, Anticipated II - Usp Unit Discharged to - intermediate unit SNF Discharge Diet(s): Calorie Controlled- 1800 Calorie Diet (12/20/22 09:46:00) Prescriptions alprazolam 0.5 mg Tab, 0.5 mg= 1 tab(s), Oral, Daily, PRN aspirin 81 mg Oral EC Tab, 81 mg= 1 tab(s), Oral, Daily Augmentin 875 mg oral tablet, 1 tab(s), Oral, q12hr ergocalciferol 50,000 intl units Cap, 38050 International_Unit= 1 cap(s), Oral, q7day furosemide 40 mg Tab, 40 mg= 1 tab(s), Oral, Daily glimepiride 1 mg Tab, 1 mg= 1 tab(s), Oral, Daily Pro-Air HFA CFC free 90 mcg/inh MDI, 2 puff(s), Inhalation, QID, PRN, Not taking Home acetaminophen 325 mg Tab, 650 mg= 2 tab(s), Oral, q6hr, PRN cholecalciferol 2000 intl units oral tablet (Vitamin D3), 50 mcg= 1 tab(s), Oral, Daily lovastatin 40 mg Tab, 40 mg= 1 tab(s), Oral, Once a day (at bedtime) metformin 1000 mg Tab, 1000 mg= 1 tab(s), Oral, BID Mucinex 600 mg Tab-ER, 1200 mg= 2 tab(s), Oral, BID quetiapine 25 mg Tab, See Instructions spironolactone 50 mg Tab, 50 mg= 1 tab(s), Oral, Daily tamsulosin 0.4 mg Cap, 0.4 mg= 1 cap(s), Oral, BID With When Contact Information Bienvenido Barroso [employer] [place], [place] [address] (1) Additional Instructions: Call for followup appointment Hospital-Acquired Pneumonia Discharge time >30 min Extracted from: Title:Admission H & P Author:Maycol CAGLE DO Date:12/18/22 1. Acute hypoxemic respirato ry failure (J96.01: Acute respiratory failure with hypoxia) Suspect secondary to below. We will continue O2 per nasal cannula 2. Right lower lobe pneumonia (J18.9: Pneumonia, unspecified organism) Agree with Rocephin and Zithromax, await blood and sputum cultures, check procalcitonin level Ordered: Procalcitonin 3. Acute kidney injury superimposed on chronic kidney disease (N17.9: Acute kidney failure, unspecified) Likely secondary to diuretics. Patient is prerenal. Patient's creatinine on 26 November was 0.9 when admitted a few weeks earlier was felt to have acute on chronic diastolic heart failure. His creatinine at time of discharge was approximately 1.3. It has steadily increased since then. Will transiently hold diuretics but avoid aggressive hydration in light of his recent hospitalization for below. We will avoid nephrotoxins. 4. Chronic diastolic heart failure (I50.32: Chronic diastolic (congestive) heart failure) Feel the patient is at present volume contracted. Will transiently hold Lasix and Aldactone until renal function improves, suspect patient will ultimately benefit being only slightly on the skin 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 Coronary artery disease (I25.10: Atherosclerotic heart disease of huslia coronary artery without angina pectoris) Patient had percutaneous intervention x5. Continue aspirin. Beta-blockers had been held on a prior hospitalization to bradycardia. Awaiting completion of med reconciliation 6. Fall (W19.XXXA: Unspecified fall, initial encounter) Patient was described as being in the wheelchair fell face forward. No reports of any concussive phenomena. We will observe his neurologic status however. CT of the head demonstrated no acute intracranial pathology but did suggest sinusitis, likely the same organism causing above and should respond antimicrobials. Review at this time of stat rad interpretation is noted in the body of the dictation possible nondisplaced right nasal bone fracture . Patient does have an abrasion on his nose patient did have elevated CPK on a prior hospitalization which had rapidly improved. Repeat CPK. Fall likely a role of this from intravascular depletion and acute kidney injury and hypoxia. Note patient has recently been on Xanax in the evening with his history of dementia we will hold the benzodiazepines as it can predispose towards falls Ordered: Creatine Kinase 7. COPD without exacerbation (J44.9: Chronic obstructive pulmonary disease, unspecified) Albuterol and Atrovent 8. Obstructive sleep apnea (G47.33: Obstructive sleep apnea (adult) (pediatric)) CPAP at night Ordered: May use own CPAP machine as per home 9. Pulmonary hypertension (I27.20: Pulmonary hypertension, unspecified) Daniel secondary to above 10. Hypertension (I10: Essential (primary) hypertension) Await reconciliation of meds from the extended care facility. He did have 1 blood pressure of 106 systolically in the emergency department. With the fall and suspicion of intravascular depletion will transiently hold antihypertensives if it is identified he is actually on antihypertensives at the [facility] care facility. On a prior hospitalization he had been on beta-blockade was held because of sinus bradycardia. Patient as of this time is demonstrated no bradycardia 11. Hyperlipidemia (E78.5: Hyperlipidemia, unspecified) We will continue statin therapy in light of above history of we will repeat CPK as it was markedly elevated on a prior hospitalization 12. Diabetes (E11.9: Type 2 diabetes mellitus without complications) With worsening renal function and prior history of more than 1 occasion of hospitalization with hypoglycemia we will hold glyburide. Will cover with sliding scale. With renal insufficiency will transiently hold metformin 13. BPH (benign prostatic hyperplasia) (N40.0: Benign prostatic hyperplasia without lower urinary tract symptoms) Wait for reconciliation of home meds and Flomax is confirmed then we will continue 14. Dementia (F03.90: Unspecified dementia, unspecified severity, without behavioral disturbance, psychotic disturbance, mood disturbance, and anxiety) Patient has had documented sensitivities to sleep-wake disturbances. Patient has been described per review of the documents of being aggressive with nursing staff not sleeping well. Seroquel that he was on during recent hospitalization has been titrated at the extended care facility. He was recently placed on Xanax, discontinue that at this time. Awaiting verification of meds from the extended care facility 15. Encounter for deep vein thrombosis (DVT) prophylaxis (Z29.9: Encounter for prophylactic measures, unspecified) Heparin subcutaneously 16. Obesity (E66.9: Obesity, unspecified) Chronic kidney disease, unspecified (N18.9: Chronic kidney disease, unspecified) Orders: acetaminophen, 650 mg = 2 tab(s), Tab, Oral, q6hr PRN Pain, Routine, Start date 12/18/22 6:16:00 EDT, 12/18/22 6:16:00 EDT albuterol, 2.5 mg, 3 mL, Soln-Inh, Inhalation, q2hr PRN Shortness of breath or wheezing, Routine, Start date 12/18/22 6:20:00 EDT albuterol-ipratropium, 3 mL, Soln-Inh, Inhalation, QID, Routine, Start date 12/18/22 8:00:00 EDT azithromycin + Sodium Chloride 0.9% intravenous solution 250 mL, 500 mg = 1 EA, IV Piggyback, q24hr, Routine, Start date 12/19/22 1:36:00 EDT, 250 mL/hr, Infuse over 60 minute(s), 12/19/22 1:36:00 EDT ceftriaxone + Sodium Chloride 0.9% intravenous solution 50 mL, 1,000 mg = 1 EA, IV Piggyback, q24hr, Routine, Start date 12/19/22 1:36:00 EDT, 100 mL/hr, Infuse over 30 minute(s), 12/19/22 1:36:00 EDT glucose, 50 mL, Soln-IV, IV Push, Once PRN Blood glucose, Routine, Start date 12/18/22 6:19:00 EDT guaifenesin, 1,200 mg = 2 tab(s), Tab-ER, Oral, BID, Routine, Start date 12/18/22 9:00:00 EDT, 12/18/22 6:16:00 EDT heparin, 5,000 unit(s) = 1 mL, Injection, SubCutaneous, BID, Routine, Start date 12/18/22 9:00:00 EDT, 12/18/22 6:16:00 EDT insulin lispro, 0-10 Units, Injection-Insulin, SubCutaneous, QIDACHS, Routine, Start date 12/18/22 7:30:00 EDT Sodium Chloride 0.9% intravenous solution 1,000 mL, 1,000 mL, IV, 75 mL/hr, Routine, Start date 12/18/22 6:16:00 EDT, 13.3 hour(s), Total volume (mL): 1,000, 94 kg, 2.04, m2 Basic Metabolic Panel Bedside Commode Cardiac Monitoring CBC w/ Auto Diff Diabetic/Calorie Control Diet Education Fall Risk Hypoglycemia Protocol Responsive Patient Hypoglycemia Protocol Unresponsive Patient Legionella Antigen Urine Notify Provider Vital Signs Notify Provider Vital Signs Oxygen Protocol Physical Therapy Evaluate Patient, Develop a Plan of Care and Implement Plan Place in Status Pneumonia Quality Measures Precautions Precautions Routine Capillary Glucose POC Sputum Culture Vital Signs Weight Patient is admitted as general inpatient with anticipation who require greater than 2 midnight stay Addendum by Ok CAGLE DO on December 18, 2022 06:27:20 EDT Note I did converse with patient's RN it was advised that the alf was planning on sending a copy of his meds at their facility. I checked the fax machine after evaluating the patient and it has not yet been sent. Await confirmation of meds and doses Extracted from: Title:ED Note Author:Malcom Vanegas MD Date: 1. Right lower lobe pneumoni a (J18.9: Pneumonia, unspecified organism) Orders: albuterol-ipratropium, 3 mL, Soln-Inh, Inhalation, Once, Stop date 12/18/22 0:15:00 EDT, STAT, Start date 12/18/22 0:15:00 EDT azithromycin + Sodium Chloride 0.9% intravenous solution 250 mL, 500 mg = 1 EA, IV Piggyback, Daily, STAT, Start date 12/18/22 1:36:00 EDT, 250 mL/hr, Infuse over 60 minute(s), 12/18/22 1:36:00 EDT ceftriaxone + Sodium Chloride 0.9% intravenous solution 50 mL, 1,000 mg = 1 EA, IV Piggyback, Once, Stop date 12/18/22 1:36:00 EDT, STAT, Start date 12/18/22 1:36:00 EDT, 100 mL/hr, Infuse over 30 minute(s), 12/18/22 1:36:00 EDT Automated Diff B-Type Natriuretic Peptide Basic Metabolic Panel Blood Culture Charcoal Blood Culture Charcoal CBC w/ Auto Diff Continuous Pulse Oximetry CT Head or Brain w/o Contrast CT Spine Cervical w/o Contrast ECG 12 Lead Adult ED Cardiac Monitoring ED Physician consult Hospitalist for continued care eGFR Oxygen Therapy PT & PTT Saline Lock Insert Troponin 0 Hr. Troponin 3 Hr. Troponin 6 Hr. Troponin 9 Hr. UA With Cult Reflex XR Chest Single View XR Pelvis 1 or 2 Views Diagnostic Tests Pending * Legionella Antigen Urine 12/18/22 [facility]07-30-2023 NoteCRM entered the room to discuss dc planning. PCP, DME and insurance discussed. Patient is alert andinvolved in plan of care. Contact information given and whiteboard updated. Pt will dc to [facility] room 17 today. CRM to follow.[facility] Hospital[facility] on above:Result Comment: Electronically Signed By: Natalie Grant\.br\Date and Time Signed: 12/20/22 11:52 [id number] [facility] HospitalComment on above: Result Comment: Electronically Signed By: Jamir MCKINNEY MD\.br\Date and Time Signed: 12/20/22 10:[id number] Hospital Discharge instructions Patient Education 12/20/2022 09:48:09 Hospital-Acquired Pneumonia Hospital-Acquired Pneumonia Hospital-acquired pneumonia is a lung infection that a person can get in a health care setting or during certain procedures. The infection causes air pouches (sacs) inside the lungs to fill with pus or fluid. Hospital-acquired pneumonia is usually caused by bacteria that are common in health care settings. This type of pneumonia is more serious because these bacteria may not be killed by (may be resistantto) common antibiotic medicines. What are the causes? This condition is caused by bacteria that get into your lungs. You can get this condition by: Breathing in droplets from an infected person's cough or sneeze. Touching something that an infected person coughed or sneezed on and then touching your mouth, nose, or eyes. Having a bacterial infection somewhere else in your body that spreads to your lungs through your blood. What increases the risk? The following factors may make you more likely to develop this condition: Having a disease that weakens your body's defense system (immune system) or your ability to cough out germs. Being older than age 65. Having trouble swallowing. Using a feeding or breathing tube, or having an IV inserted in a vein. Having been in the hospital for two or more days in the past three months, or having been in an intensive care unit (ICU). Living in a long-term care facility, such as a alf. Having your kidneys filtered through hemodialysis in the past 30 days. What are the signs or symptoms? Symptoms of this condition include: Fever. Chills. Cough. Shortness of breath. Making high-pitched whistling sounds when you breathe, most often when you breathe out (wheezing). How is this diagnosed? This condition may be diagnosed based on: Your symptoms. Imaging tests, such as a chest x-ray or a CT scan. Measuring how much oxygen is in your blood. Tests on blood or mucus from your lungs (sputum). How is this treated? This condition is treated with antibiotics. Your health care provider may use a test on your sputumto find out what type of bacteria is in your lungs. Your antibiotic may change based on the results. You may need to be treated at the hospital if you have bacteria in your blood, trouble breathing, or a low oxygen level. At the hospital, you will be given antibiotics through an IV. You may also be given oxygen or breathing treatments. Follow these instructions at home: Activity Rest as told by your health care provider. Return to your normal activities as told by your health care provider. Ask your health care provider what activities are safe for you. Lifestyle Do not use any products that contain nicotine or tobacco. These products include cigarettes, chewing tobacco, and vaping devices, such as e-cigarettes. If you need help quitting, ask your health careprovider. Do not drink alcohol if: ?Your health care provider tells you not to drink. ?You are , may be , or are planning to become . If you drink alcohol: ?Limit how much you have to: ?0 1 drink a day for women. ?0 2 drinks a day for men. ?Know how much alcohol is in your drink. In the [place] one drink equals one 12 oz bottle of beer (355 mL), one 5 oz glass of wine (148 mL), or one 1 1/2 oz glass of hard liquor (44 mL). General instructions Take oysg-fwy-fgfdorp and prescription medicines as told by your health care provider. Finish all antibiotic medicine even when you start to feel better. Drink enough fluid to keep your urine pale yellow. Keep all follow-up visits. This is important. How is this prevented? To lower your risk of getting this condition again: Do not smoke, including e-cigarettes, or drink too much alcohol. Keep your immune system healthy by eating well, drinking fluids, and getting enough sleep. Get a flu shot every year (annually), and get a pneumonia shot if: ?You are older than age 65. ?You smoke. This includes e-cigarettes. ?You have a long-term (chronic) condition such as lung disease or diabetes. Exercise your lungs by taking deep breaths, walking, and using an incentive spirometer as told. Practice good hygiene and ask others to practice good hygiene. ?Wash your hands often for at least 20 seconds with soap and water. If soap and water are not available, use an alcohol-based hand hospital technician. ?Make sure your health care providers wash their hands. Ask them to wash their hands if you do not see them doing so. ?When you are in a health care facility, avoid touching your eyes, nose, and mouth, or any surface near where people have coughed or sneezed. ?Stand away from sick people when they are coughing or sneezing. ?Wear a mask if you cannot avoid exposure to people who are sick. ?Clean all surfaces often with a cleanser that kills germs (disinfectant), especially if someone issick at home or work. Precautions of my health care team Hospitals, nursing homes, and other health care facilities take steps to try to prevent hospital-acquired pneumonia. To do this, your health care team may: Clean their hands for at least 20 seconds with soap and water or with alcohol- based hand hospital technician before and after caring for sick people. Wear gloves or masks during treatment. Sanitize medical instruments, tubes, other equipment, and surfaces in hospital or clinic rooms. Raise the head of your hospital bed so you are not lying flat. The head of the bed may be raised 30degrees or more. Have you sit up and move around as soon as possible after surgery. Insert a breathing tube only if needed. If you have a breathing tube, they will: ?Clean the inside of your mouth regularly. ?Remove the breathing tube as soon as it is no longer needed. Contact a health care provider if: Your symptoms do not get better or they get worse. Your symptoms come back after you have finished your antibiotics. Get help right away if: You have trouble breathing. You have confusion or trouble thinking. These symptoms may be an emergency. Get help right away. Call 911. Do not wait to see if the symptoms will go away. Do not drive yourself to the hospital. Summary Hospital-acquired pneumonia is a lung infection usually caused by bacteria common in health care settings. Take jjhd-lkk-isueybf and prescription medicines as told by your health care provider. Finish all antibiotic medicine even when you start to feel better Do not smoke. Eat well, get plenty of rest and fluids, wash your hands often, and keep all follow-up visits. This information is not intended to replace advice given to you by your health care provider. Make sure you discuss any questions you have with your health care provider. Document Revised: 05/31/2022 Document Reviewed: 05/31/2022 [employer] Patient Education 2022 [employer] Follow Up Care 12/17/2022 23:50:19 With:Bienvenido Barroso Address: [place] [address] [facility] (1) When: Unknown Comments:Call for followup appointment [facility]07-28-2023 [facility]:Result Comment: Electronically Signed By: Maycol CAGLE DO\.br\Date and Time Signed: 12/18/22 06:27 [id number] [facility]Comment on above:Result Comment: Electronically Signed By: Lizeth Cedeno MD\.br\Date and Time Signed: 12/02/22 12:28 [id number] Evaluation + Plan noteExtracted from: Title:Discharge Note Author:Lizeth Cedeno MD ate:12/02/22 Stable Discharge To, Anticipated II - Usp Unit Discharged to - Home with family care Transported by, Anticipated - Family Discharge Diet(s): Other: Limit fluids to 1800 ml/day (12/02/22 12:23:00) Prescriptions aspirin 81 mg Oral EC Tab, 81 mg= 1 tab(s), Oral, Daily ergocalciferol 50,000 intl units Cap, 44308 International_Unit= 1 cap(s), Oral, q7day furosemide 40 mg Tab, 40 mg= 1 tab(s), Oral, Daily glimepiride 1 mg Tab, 1 mg= 1 tab(s), Oral, Daily Pro-Air HFA CFC free 90 mcg/inh MDI, 2 puff(s), Inhalation, QID, PRN quetiapine 50 mg oral tablet, 50 mg= 1 tab(s), Oral, Bedtime Home acetaminophen 325 mg Tab, 650 mg= 2 tab(s), Oral, q6hr, PRN lovastatin 40 mg Tab, 40 mg= 1 tab(s), Oral, Once a day (at bedtime) metformin 1000 mg Tab, 0.5 tab, Oral, BID spironolactone 50 mg Tab, 50 mg= 1 tab(s), Oral, Daily tamsulosin 0.4 mg Cap, 0.4 mg= 1 cap(s), Oral, Bedtime With When Contact Information Joanie Jiménez [facility] [address] [place] [address]- Business (1) Additional Instructions: [facility] [place] [address] [place] [address]- Business (1) Additional Instructions: Cog impariment, [facility] Bienvenido Barroso In [address] [place] [address]- Business (1) Additional Instructions: Extracted from: Title:UPDATE Author:Jodie COLEMAN Date:12/01/22 Patient yelling out from mason m aggressively towards nursing staff. 3 nurses in room patient stating get out get out when walked into room patient still verbally aggressive. Attempting to get out of chair but does not want assisted in any way. Almost pulling his bedside table and dinner tray on the floor. Refusing to take oral Seroquel. Nursing patient was calm following Seroquel earlier was very pleasant. Has become aggressive this afternoon. Dr. Cedeno made aware and order to give patient a one-time dose of Geodon 20 mg IM now. Extracted from: Title:Progress Note * Author:Joanie Jiménez MD Date:11/30/22 Impression and Plan 1 stage I diastolic dysfunction in the presence of preserved LV systolic function. The patient will benefit from adhering to diuretics to prevent recurrent admissions for diastolic heart failure. This message was made very clear to the patient and his . Continue with furosemide and spironolactone and maintain potassium level between 4 and 5 mmol/L 2 diabetes on medical therapy 3 hyperlipidemia on medical therapy 4 dementia, patient is stable and lives with his 5 history of CAD and previous coronary interventions in [place] with no indication of recurrent CAD, would not recommend investigation for ischemic heart disease at this time Extracted from: Title:APSO Note Author:Pao POTTS, Ahmad Date: Acute respiratory failure wi th hypoxia Acute on chronic diastolic heart failure Pulmonary HTN -Etiology believed secondary to diastolic heart failure -Continue with diuretics -Echo adjudication -Per cardiology Hypokalemia Hypomagnesemia Likely secondary to diuretics Replete and monitor labs Sinus bradycardia Coronary artery disease HTN Hyperlipidemia -Beta-blockers continue to be held -Continue with aspirin -Statin held 2/2 elevated CK levels -Cardiology following Elevated CK levels -Follow COPD without exacerbation -Duo nebs -Budesonide -I/S -Monitor Obstructive sleep apnea -CPAP qhs and PRN Diabetes -Continue w/po meds BPH: Continue w/Flomax Dementia: Supportive care, Seroquel helping w/sleep wake cycle regulation Weakness: Multifactorial and likely worsened by all of the above, vitamin D is low, gave vitamin D q 7 days, PT rec snf, precert in processes Diet: Na diet DVT prophylaxis: Heparin Time: 35 minutes Plan: Plan was discussed with patient and family (if applicable) at bedside Orders: albuterol-ipratropium, 3 mL, Soln-Inh, Inhalation, QID PRN Shortness of breath or wheezing, Routine, Start date 11/30/22 8:47:00 EDT aspirin, 81 mg = 1 tab(s), Tab-EC, Oral, Daily, Routine, Start date 12/01/22 9:00:00 EDT, 11/30/22 14:46:00 EDT budesonide, 0.25 mg = 2 mL, Susp-Inh, NEB, BID, Routine, Start date 11/30/22 9:00:00 EDT ergocalciferol, 50,000 unit(s) = 1 cap(s), Cap, Oral, q7day, Routine, Start date 11/30/22 9:00:00 EDT, 11/30/22 8:50:00 EDT magnesium sulfate + Generic Diluent 50 mL, 2 gram = 50 mL, Soln-IV, IV Piggyback, Once, Stop date 11/30/22 15:00:00 EDT, Routine, Start date 11/30/22 15:00:00 EDT, 25 mL/hr, Infuse over 2 hour(s) potassium chloride, 40 mEq = 2 tab(s), Tab-ER, Oral, Once, Stop date 11/30/22 8:51:00 EDT, NOW, Start date 11/30/22 8:51:00 EDT, 11/30/22 8:51:00 EDT potassium chloride, 40 mEq = 2 tab(s), Tab-ER, Oral, q2hr for 2 time(s), Stop date 11/30/22 18:41:00 EDT, Routine, Start date 11/30/22 14:42:00 EDT, 11/30/22 14:42:00 EDT Basic Metabolic Panel Creatine Kinase Incentive Spirometry Magnesium Level Magnesium Level Extracted from: Title:SOAP Note: Simple Author:Marcus POTTS, [facility] Date:11/29/22 Impression and Plan CONSULT DICTATED CAME TO HOSPITAL FOR WEAK LEGS MIGHT HAVE A LITTLE PULMONARY CONGESTION REC: ECHO IN AM LASIX FOR EDEMA AND CONGESTION NO EVAL FOR CAD FLUID RESTRICT NOW AND AT HOME Extracted from: Title:APSO Note Author:New Johnson DO Gerry e:11/29/22 1. Acute respiratory failure with hypoxia (J96.01: Acute respiratory failure with hypoxia) pt currently on 2L NC. pt does not wear O2 at home. - CTA negative for PE, shows mild congestion - Wean o2 as able, brad varela. -check echo Ordered: [facility] Care/Day High 50 Minutes [id number] 2. Acute on chronic diastolic heart failure (I50.33: Acute on chronic diastolic (congestive) heart failure) c/w spironolactone and lasix IV 40mg qd -strict I/Os and daily weight - last echo was done 2014 with EF of 50%. will recheck this visit Ordered: [facility] Care/Day High 50 Minutes 18619 3. COPD without exacerbation (J44.9: Chronic obstructive pulmonary disease, unspecified) Ordered: [facility] Care/Day High 50 Minutes 17637 4. Weakness (R53.1: Weakness) -pt/ot Ordered: [facility] Care/Day High 50 Minutes 93356 5. Sinus bradycardia (R00.1: Bradycardia, unspecified) baseline. last EKG similar. -pt had decreased HR overnight so BB was held. -continue to monitor on tele Ordered: [facility] Care/Day High 50 Minutes 36496 6. Coronary artery disease (I25.10: Atherosclerotic heart disease of [place] coronary artery without angina pectoris) -c/w ASA Ordered: [facility] Care/Day High 50 Minutes 58990 7. Obstructive sleep apnea (G47.33: Obstructive sleep apnea (adult) (pediatric)) -CPAP qHS Ordered: [facility] Care/Day High 50 Minutes 28786 8. Pulmonary hypertension (I27.20: Pulmonary hypertension, unspecified) c/w spironolactone 50mg -lasix 40 mg iv qd -strict I/Os daily weights -check echo Ordered: [facility] Care/Day High 50 Minutes 43018 9. Abdominal pain (R10.9: Unspecified abdominal pain) resolved no complaints this morning Ordered: [facility] Care/Day High 50 Minutes 14381 10. Hypertension (I10: Essential (primary) hypertension) c/w spironolactone Ordered: [facility] Care/Day High 50 Minutes 12433 11. Diabetes (E11.9: Type 2 diabetes mellitus without complications) BGT qACHS -c/w glimepiride Ordered: [facility] Care/Day High 50 Minutes 56758 12. Hyperlipidemia (E78.5: Hyperlipidemia, unspecified) -hold statin due to elevated CK Ordered: [facility] Care/Day High 50 Minutes 91050 13. Chronic anemia (D64.9: Anemia, unspecified) monitor Ordered: [facility] Care/Day High 50 Minutes 49101 14. BPH (benign prostatic hyperplasia) (N40.0: Benign prostatic hyperplasia without lower urinary tract symptoms) c/w tamsulosin Ordered: [facility] Care/Day High 50 Minutes 73162 15. Dementia (F03.90: Unspecified dementia, unspecified severity, without behavioral disturbance, psychotic disturbance, mood disturbance, and anxiety) -c/w seroquel 25mg qHS Ordered: [facility] Care/Day High 50 Minutes 13348 16. Encounter for deep vein thrombosis (DVT) prophylaxis (Z29.9: Encounter for prophylactic measures, unspecified) Ordered: [facility] Care/Day High 50 Minutes 10567 17. Elevated CK (R74.8: Abnormal levels of other serum enzymes) -CK 1000 this morning. will monitor and hold statin - will not give fluids due to current diuresis Ordered: [facility] Care/Day High 50 Minutes 09392 COPD with acute exacerbation (J44.1: Chronic obstructive pulmonary disease with (acute) exacerbation) Extracted from: Title:Admission H & P Author:Maycol CAGLE DO Date:11/28/22 1. Acute respiratory failure with hypoxia (J96.01: Acute respiratory failure with hypoxia) Impression I received was that this was found incidentally CTA was suggestive of crowding of the vasculature did have bilateral small pleural effusions. Patient also noted to have peripheral edema. Suspect therefore diagnosis of below, though note patient does have atelectasis likely a contributing component of obesity hypoventilation. Patient will be using CPAP this evening which should help recruit alveoli. Patient has received diuretics 2. Acute on chronic diastolic heart failure (I50.33: Acute on chronic diastolic (congestive) heart failure) Observe response to diuretic. I was advised that patient was given Lasix and upon arrival to the floor was incontinent of urine and therefore was not collected. We will follow weights. We will place a Red catheter to monitor inputs and outputs and with his history of BPH will observe amount of immediate return when Red catheter is placed. Because of patient's weakness and not appearing in acute respiratory distress will order conservative dose of IV Lasix which can be titrated upward if patient is responsive to diuretics and tolerates this well. It is unlikely that an echocardiogram will be able to be obtained over the weekend on a nonemergent basis. We will limit fluids and sodium. Complete cardiac enzyme panel 3. COPD without exacerbation (J44.9: Chronic obstructive pulmonary disease, unspecified) No wheezing was noted. Cannot get a clear history of patient having a recent cough. Continue. Albuterol 4. Weakness (R53.1: Weakness) Potentially multifactorial including predominant role of hypoxia, note low calcium, note patient also with sinus bradycardia. As patient is on statin we will check CPK, check sed rate, check thyroid function studies, check ionized calcium and vitamin D Ordered: Calcium Level Ionized Creatine Kinase Sedimentation Rate Automated TSH With T4fr Reflex Vitamin D 25 Hydroxy 5. Sinus bradycardia (R00.1: Bradycardia, unspecified) This does not appear to be new. Patient did have heart rates as low as the high 40s. We will hold metoprolol and check thyroid function studies Ordered: TSH With T4fr Reflex 6. Coronary artery disease (I25.10: Atherosclerotic heart disease of [place] coronary artery without angina pectoris) Continue aspirin, statins provided CPK is not excessively elevated, hold metoprolol and observe heart rate 7. Obstructive sleep apnea (G47.33: Obstructive sleep apnea (adult) (pediatric)) Use hospital CPAP device if hospitalization is prolonged can bring in his home unit for use 8. Pulmonary hypertension (I27.20: Pulmonary hypertension, unspecified) The due to combination of obstructive sleep apnea and COPD. Per review of the chart it appears patient has had a chronic degree of edema 9. Abdominal pain (R10.9: Unspecified abdominal pain) This was not appreciated on examination at the bedside. This was reported upon initial evaluation in the emergency department. CT scan did suggest gallstones in the gallbladder neck but no dilation of the biliary tree. We will therefore check liver function studies and if elevated or if pain recurs can consider gallbladder ultrasound. 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 Hypertension (I10: Essential (primary) hypertension) We will hold beta-blockers in light of patient's bradycardia. Patient may benefit from lisinopril 11. Diabetes (E11.9: Type 2 diabetes mellitus without complications) We will hold metformin as we treat for volume overload. Continue Amaryl but monitor blood sugars closely. Note hemoglobin A1c of 6.4 in September. Use Humalog sliding scale 12. Hyperlipidemia (E78.5: Hyperlipidemia, unspecified) Continue statin provided CPK is within normal limits 13. Chronic anemia (D64.9: Anemia, unspecified) Return for continued stability as we continue aspirin 14. BPH (benign prostatic hyperplasia) (N40.0: Benign prostatic hyperplasia without lower urinary tract symptoms) As Red catheter will be placed for close monitoring of I's and O's in regards to above diagnosis and treatment we will be mindful of immediate urine volumes 15. Dementia (F03.90: Unspecified dementia, unspecified severity, without behavioral disturbance, psychotic disturbance, mood disturbance, and anxiety) Continue Seroquel at night with risk of owning 16. Encounter for deep vein thrombosis (DVT) prophylaxis (Z29.9: Encounter for prophylactic measures, unspecified) Heparin subcutaneous Orders: aspirin, 325 mg = 1 tab(s), Tab-EC, Oral, Daily, Routine, Start date 11/29/22 9:00:00 EDT, 11/29/22 1:15:00 EDT atorvastatin, 10 mg = 0.5 tab(s), Tab, Oral, Once a day (at bedtime), Routine, Start date 11/29/22 21:00:00 EDT, 11/29/22 1:16:00 EDT furosemide, 20 mg = 2 mL, Injection, IV Push, Daily, Routine, Start date 11/29/22 9:00:00 EDT, 11/29/22 1:21:00 EDT glimepiride, 1 mg = 0.5 tab(s), Tab, Oral, Daily, Routine, Start date 11/29/22 9:00:00 EDT, 11/29/22 1:16:00 EDT quetiapine, 50 mg = 2 tab(s), Tab, Oral, Bedtime, Routine, Start date 11/29/22 1:17:00 EDT, 11/29/22 1:17:00 EDT spironolactone, 50 mg = 1 tab(s), Tab, Oral, Daily, Routine, Start date 11/29/22 9:00:00 EDT, 11/29/22 1:16:00 EDT tamsulosin, 0.4 mg = 1 cap(s), Cap, Oral, Bedtime, Routine, Start date 11/29/22 21:00:00 EDT, 11/29/22 1:17:00 EDT B-Type Natriuretic Peptide Basic Metabolic Panel Bedrest Capillary Glucose POC CBC w/ Auto Diff Communication Order Communication Order Communication Order Communication Order Continuous Positive Airway Pressure Continuous Pulse Oximetry Education Heart Failure Heart Failure Quality Measures Intake and Output Lipid Panel Oxygen Protocol Oxygen Therapy Physical Therapy Evaluate Patient, Develop a Plan of Care and Implement Plan Place in Status Precautions Saline Lock Insert Sodium Diet Urinary Catheter Insertion Vital Signs Vital Signs Weight Weight With significant weakness we will admit as general inpatient with the anticipation he will require greater than 2 midnight stay Extracted from: Title:ED Note Author:Shane Pan DO Date:11/28 Abdominal pain (R10.9: Unspe cified abdominal pain) Hypoxia (R09.02: Hypoxemia) Weakness (R53.1: Weakness) Orders: Automated Diff Basic Metabolic Panel Blood Gas Art, with Lytes, Gluc, Lact CBC w/ Auto Diff CT Abdomen/Pelvis w/ Contrast CT Head or Brain w/o Contrast CTA Chest ECG 12 Lead Adult eGFR Saline Lock Insert Troponin 0 Hr. Troponin 3 Hr. Troponin 6 Hr. Troponin 9 Hr. UA With Cult Reflex XR Chest Single View Future Appointments Appointment Date:12/03/2022 01:00:00 PM Scheduled Provider:Donta NOONAN MD Location:Extended Care Appointment Type:[facility]07-10-2023 NoteOT [facility] six clicks score 15/24 = SNF. Patient requires assist w/ all transfers and self care at this time. Inpatient OT services to follow daily to progress w/ functional skills.[facility]07-09-2023 NotePT Evaluation completed with an [facility] score of 16/24. Pt requires Min A for bed mobility and min/Mod A to stand. Pt was able to take two sidesteps. Will follow daily, but SNF [facility] NoteLutheran HospitalComment on above:Result Comment: Electronically Signed By: Maycol CAGLE DO\.br\Date and Time Signed: 11/29/22 01:33 [id number] Hospital Discharge instructions Follow Up Care 11/28/2022 17:10:04 With:Joanie Jiménez Address: [facility] [address] [place] [address]- Business (1) When: Unknown Comments:HFpEF With:Dave Cruz Address: [address] [place] [phone]- Business (1) When: Unknown Comments:Cog impariment, [employer] With:Bienvenido Barroso Address: [address] [place] [phone] Business (1) When: Unknown [facility]05-20-2023 NoteLutheran HospitalComment on above:Result Comment: Electronically Signed By: Adeline COLEMAN\.br\Date and Time Signed: 10/10/22 17:53 EDT\.br\Electronically Co- Signed By: Ganesh Minaya MD\.br\Date and Time Co-Signed: 10/10/22 18:51 EDT 09-27-2022 [facility]:Result Comment: Electronically Signed By: Adeline COLMEAN\.br\Date and Time Signed: 09/26/22 21:20 EDT\.br\Electronically Co-Signed By: Ganesh Minaya MD\.br\Date and Time Co-Signed: 09/27/22 08:00 [id number] History of Present illness Narrative* Marcelino Echavarria MD - 09/07/2022 1:12 AM EDT Images from the original note were not included. EMERGENCY TRIAGE, TREAT AND TRANSPORT (ET3) DOCUMENTATION OF TELEHEALTH VISIT Date / Time: 09/06/20222146 Name: Clyde Humphrey : 1945 SSN: [id number] EMS Agency: [facility] [x] Verbal consent obtained [] Implied consent - patient with potential emergency medical condition requiring assessment of capacity to refuse treatment and/or transport VITAL SIGNS: see flowsheet documentation Reason for Telehealth Visit: Chief Complaint Patient presents with Fall History of Present Illness: Hx obtained from POA Barb Humphrey 06/25 alzheimer's 77M pmhx below, EMS called for fall, 2nd run of the day for the same, reports witnessed fall trying to put pants on foot slid out from under him hitting back and butt on the couch then to floor without head strike LOC NV n/t weakness AMS reported, unable to pick him up off the ground because she has a recent injury of her own. Pt no current complaints per POA who does not want the pt transported despite second fall and second EMS run of the day Additional pertinent PMHx, SocHx, FamHx: PMHx HLD DM PVD [place]EN[place]AM[place] obesity alzheimer's SocHx: Denies tobacco EtOH drugs Famhx reviewed and negative for history pertinent to current complaint Review of Systems: Denies the following: see hpi Exam: General: Awake, no distress ENT: normocephalic, atraumatic Pulmonary: No respiratory distress Cardiovascular: Well perfused Neurologic: baseline mental status. Moving all extremities equally. Psychiatric: normal affect Medical Decision MakinM pmhx as above, second mechanical fall of the day reportedly without complaints per POA but unreliable historian given alzhemiers disease, had lengthy d/w pt's and POA Barb Humphrey who does not want the pt transported to the hospital as falls were witnessed pt at baseline and without complaints, voiced my concerns for possible traumatic injuries as well as toxometabolic issues that may have caused falls, despite my recommendation POA still wishes pt not be transported, does agree to callPCP in AM for further eval, advised to go to nearest ED if AMS [place] PETERS weakness Disposition Supported by Telehealth Assessment: ET3 transport decisions: Refused transport EMS Disposition Reported: Same ET3 Encounter Completed by: Marcelino Echavarria MD documented in this encounterMetroHealthEvaluation + Plan note No data available for this section [facility], initial encounter- Primary [facility] No data available for this section [facility] No data available for this section [facility] Summary Purpose Family History No Family History Records FoundNo Family History Records FoundNo Family History Records FoundNo Family History Records FoundNo Family History Records Found Advance Directives No Advanced Directives Records FoundNo Advanced Directives Records FoundNo Advanced Directives Records FoundNo Advanced Directives Records FoundNo Advanced Directives Records Found Additional Source Comments (unrecognized sect ion and content) No Status Records FoundNo Status Records FoundNo Status Records FoundNo Status Records FoundNo Status Records Found INFORMATION SOURCE (unrecogn ized section and content) DATE CREATED AUTHOR 06/26/2021 [facility] dical Specialist DATE CREATED AUTHOR AUTHOR'S ORGANIZ ATION 09/30/2022 [facility] DATE CREATED AUTHOR AUTHOR'S ORGANIZ ATION 12/05/2022 [facility] DATE CREATED AUTHOR AUTHOR'S ORGANIZ ATION 03/26/2023 [facility] DATE CREATED AUTHOR AUTHOR'S ORGANIZ ATION 05/04/2023 [facility] Reason for Visit (unrecogniz ed section and content) Reason Comments Fall Patient Care team informatio n (unrecognized section and content) Personnel Name: Bienvenido Barroso MD Address: Address: [address] [place] [address] Name: Andrew Rodriguez Personnel Name: Bienvenido Barroso MD Address: Address: [address] [place] [address] Name: Andrew Rodriguez Personnel Name: Bienvenido Barroso MD Address: Address: [address] [place] [address] Name: Andrew Rodriguez Personnel Name: Bienvenido Barroso MD Address: Address: [address] [place] [address] Name: Andrew Rodriguez Personnel Name: Bienvenido Barroso MD Address: Address: [address] [place] [address] Name: Andrew Rodriguez Personnel Name: Bienvenido Barroso MD Address: Address: [address] [place] [address] Name: Andrew Rodriguez Personnel Name: Bienvenido Barroso MD Address: Address: [address] [place] [address] Name: Andrew Rodriguez Personnel Name: Bienvenido Barroso MD Address: Address: [address] [place] [address] Name: Luis Gil LPN Name: Andrew Rodriguez FOR RECORDS PERTAINING TO PATIENTS WHO ARE OR HAVE BEEN ENROLLED IN A CHEMICAL DEPENDENCY/SUBSTANCEABUSE PROGRAM, SOME INFORMATION MAY BE OMITTED. This clinical summary was aggregated from multiple sources. Caution should be exercised in using it in the provision of clinical care. This summary normalizes information from multiple sources, and as a consequence, information in this document may materially change the coding, format and clinical context of patient data. In addition, data may be omitted in some cases. CLINICAL DECISIONS SHOULD BE BASED ON THE PRIMARY CLINICAL RECORDS. [employer] [facility]. provides no warranty or guarantee of the accuracy or completeness of information in this document.
[2023-06-28 08:55] LABS: Cholesterol 112 mg/dL (<=200); HDL Cholesterol 57 mg/dL (40-60); LDL Cholesterol Calculated 34.4 mg/dL; Triglycerides 103 mg/dL (<=150); VLDL CHOLESTEROL 20.6 mg/dL
== END 2023-06-28 02:02 | disposition home or self-care (01) ==
LOC: LAB 02:01
PROVIDERS: PCP Family Medicine; Visit Provider Family Medicine
DX: E78.5 Hyperlipidemia, unspecified (principal)
CPT/HCPCS: 36415; 80061

== ENCOUNTER 2023-08-03 06:00 | Outpatient (REF) | payer OTHER, SELFPAY ==
--- OUTSIDE RECORDS SUMMARY | 2023-08-04 01:45 | XMS_ITS | CCD ---
Author Name Unknown Address [address] [facility] [address] [place] [address] Organization [facility] Care Team Providers Care National Account Director Name Role Phone Unavailable Primary Care Provider Unavailabl e PROVIDER, UNKNOWN Attending Unavailable PROVIDER, UNKNOWN Admitting Unavailable PROVIDER, UNKNOWN Attending Unavailable PROVIDER, UNKNOWN Admitting Unavailable Bienvenido Barroso Primary Care Physician [phone] Andrew Rodriguez Unavailable Unavailable Luis Gil Unavailable Unavailable Donta NOONAN Admitting Unavailable Donta NOONAN Attending Unavailable DO Radha Grace Attending Unavaila Donta Barrett Attending Unavailable Donta NOONAN Attending Unavailable Donta NOONAN Attending Unavailable Bienvenido Barroso Admitting Unavailable Bienvenido Barroso Attending Unavailable New Johnson Admitting Unavailable New Johnson Attending Unavailable Maycol CAGLE Admitting Unavailable Jiménez, Niar Consulting Unavailable Lizeth Cedeno Attending Unavailable Jiménez, [...] Refills(s) 0 Start Date: 06/16/14 Status: Ordered [id number] 200 actuat albuterol 0.09 mg/actuat metered dose inhaler (4 sources) beta2-Adrenergic Agonist Start: 04-27-2021 take 2 puff(s) by inhalation four times daily for wheezing Pro-Air HFA CFC free 90 mcg/inh MDI 2 puff(s), Inhalation, QID for wheezing, 8.5 gram, Refill(s) 0, [facility], 167.6, cm, 04/24/21 18:14:00 EST, Height/Length [...] Daily, # 30 tab(s), Refills(s) 0, Pharmacy: [facility], 167, cm, 11/28/22 17:20:00 EDT, Height/Length [...] Daily, # 90 tab(s), Refills(s) 4, Pharmacy: [facility], 160, cm, 12/18/22 0:04:00 EDT, Height/Length [...] Daily, # 90 tab(s), Refills(s) 4, Pharmacy: [facility], 160, cm, 12/18/22 0:04:00 EDT, Height/Length [...] Daily, # 90 tab(s), Refills(s) 1, Pharmacy: [facility], 160, cm, 12/18/22 0:04:00 EDT, Height/Length Dosing, 94, kg, 12/18/22 0:04:00 EDT, Weight Dosing Start Date: 01/15/23 Status: Ordered Start: 12-02-2022 take 1 tablet by [facility] once daily furosemide 40 mg Tab 40 mg = 1 tab(s), Oral, Daily, # 30 tab(s), Refills(s) 0, Pharmacy: [facility], 167, cm, 11/28/22 17:20:00 EDT, Height/Length Dosing, 99.8, kg, 11/28/22 17:20:00 EDT, Weight Dosing Start Date: 12/02/22 Status: Ordered Start: 06-13-2013 take 1 tablet by [facility] once daily furosemide 40 mg Tab 40 [...] day, # 30 tab(s), Refills(s) 0, Pharmacy: [facility], 167, cm, 09/26/22 10:09:00 EDT, Height/Length Dosing, 100.4, kg, 09/26/22 10:09:00 EDT, Weight Dosing Start Date: 09/28/22 Status: Ordered 12 hr guaiFENesin 600 mg extended release oral tablet (2 sources) Start: 12-20-2022 End: 12-25-2022 take 2 tablets by mouth twice daily [...] qHS, # 210 tab(s), Refills(s) 1, Pharmacy: [facility], 160, cm, 12/18/22 0:04:00 EDT, Height/Length [...] Bedtime, # 30 tab(s), Refills(s) 0, Pharmacy: [facility], 167, cm, 11/28/22 17:20:00 EDT, Height/Length [...] Daily, # 90 tab(s), Refills(s) 1, Pharmacy: [facility], 160, cm, 12/18/22 0:04:00 EDT, Height/Length [...] week(s), # 8 cap(s), Refills(s) 0, Pharmacy: [facility], 167, cm, 11/28/22 17:20:00 EDT, Height/Length [...] Completed Start: 06-16-2014 take 1 capsule by [facility] twice daily tamsulosin 0.4 mg Cap 0.4 [...] Coronary atherosclerosis; Translations: [Atherosclerotic heart disease of [place] coronary artery without angina pectoris] Onset: 11-29-2022 [...] Insurance Correspondenceon 1 05-25-2022 Insurance Correspondence [id number]# 1.00TIFF [facility] Coding Queryon 02-17-2023 Coding Query [facility] Discharge Instructionson Discharge Instructions [id number]# 1.00CD:127 [facility] Transfer Documentson 023 Transfer Documents [id number]# 1.00CD:127 [facility] Discharge Note-Nursingon Discharge Note-Nursing Normal [facility] Interdisciplinary Note - Santosh e Manageron 01-23-2023 Interdisciplinary Note - Television Camera Operator [facility] Comment on above: Result Comment: Elec tronically Signed By: Norma Garcia RN\.br\Date and Time Signed: 01/23/23 16:29 EDT Progress Note-Physicianon Progress Note-Physician Normal [facility] Comment on above: Result Comment: Elec tronically Signed By: New Johnson DO\.br\Date and Time Signed: 01/23/23 09:50 EDT Auto Diffon 01-22-2023 Basophils/100 WBC (Bld) 0.7 % Normal 0.0-2.[address] [facility] Comment on above: Order Comment: Order Added by Discern Expert. Performed By: #### 2 280276, 26615051, 3643247, 2307405 ####[address] [place] [address] Basophils/Leukocytes Auto (Bld) [Pure # fraction] 0.1 E9/L Normal 0.0-0.2 [facility] Comment on above: Order Comment: Order Added by Discern Expert. Performed By: #### 2 106575, 25327781, 7450490, 6502706 ####[address] [address] Eosinophils/100 WBC (Bld) 9.3 % High 0.0-8.0 [facility] Comment on above: Order Comment: Order Added by Bethany Expert. Performed By: #### 2 706122, 32581960, 2478495, 4694798 ####[address] [address] Eosinophils/Leukocytes Auto (Bld) [Pure # fraction] 0.8 E9/L High 0.0-0.5 [facility] Comment on above: Order Comment: Order Added by Bethany Expert. Performed By: #### 2 398808, 23985733, 9789215, 9588913 ####[address] [address] Lymphocytes/100 WBC (Bld) 17.2 % Normal 14.0-50.0 [facility] Comment on above: Order Comment: Order Added by Bethany Expert. Performed By: #### 2 728975, 15997672, 6708383, 0795634 ####[address] [address] Lymphocytes/Leukocytes Auto (Bld) [Pure # fraction] 1.4 E9/L Normal 1.0-4.0 [facility] Comment on above: Order Comment: Order Added by Bethany Expert. Performed By: #### 2 383094, 51939664, 4235631, 0910681 ####[address] [address] Monocytes/100 WBC (Bld) 10.0 % Normal 4.0-14.[address] [facility] Comment on above: Order Comment: Order Added by Discern Expert. Performed By: #### 2 495335, 04305413, 6222957, 7401762 ####[address] [place] [address] Monocytes/Leukocytes Auto (Bld) [Pure # fraction] 0.8 E9/L Normal 0.2-1.0 [facility] Comment on above: Order Comment: Order Added by Discern Expert. Performed By: #### 2 930289, 72949976, 1948941, 3919289 ####[address] [address] Neutrophils/100 WBC (Bld) 62.8 % Normal 36.0-75.0 [facility] Comment on above: Order Comment: Order Added by Discern Expert. Performed By: #### 2 794787, 40148057, 2853950, 1194430 ####[address] [address] Neutrophils/Leukocytes Auto (Bld) [Pure # fraction] 5.2 E9/L Normal 2.0-7.5 [facility] Comment on above: Order Comment: Order Added by Discern Expert. Performed By: #### 2 795382, 20659698, 6132361, 7593479 ####[address] [address] CBC w/ Auto Diffon 3 Erythrocyte distribution width (RBC) [Ratio] 15.2 % High 10.9-14.2 [facility] Comment on above: Performed By: #### 2 600032, 99233184, 0890287, 8819981 ####[address] [address] Hematocrit (Bld) [Volume fraction] 43.1 % Normal 37.7-49.0 [facility] Comment on above: Performed By: #### 2 004264, 04459373, 1171698, 1736705 ####[facility] [address] [place] [address] Hemoglobin (Bld) [Mass/Vol] 14.6 g/dL Normal 13.5-17.5 [facility] Comment on above: Performed By: #### 2 386748, 62608870, 6640622, 2268650 ####[facility] [address] [place] [address] MCH (RBC) [Entitic mass] 28.1 pg Normal 27.0-34.0 [facility] Comment on above: Performed By: #### 2 247289, 00613688, 3666762, 0093871 ####[address] [address] MCHC (RBC) [Mass/Vol] 33.8 g/dL Normal 31.4-36.0 [facility] Comment on above: Performed By: #### 2 624398, 91789097, 2325743, 3303976 ####[facility] [address] [place] [address] MCV (RBC) [Entitic vol] 83.2 fL Normal 80.0-100.0 [facility] Comment on above: Performed By: #### 2 167247, 64575227, 1985304, 1291659 ####[facility] [address] [place] [address] Platelet mean volume (Bld) [Entitic vol] 8.6 fL Normal 6.4-10.8 [facility] Comment on above: Performed By: #### 2 081292, 62848715, 6689924, 8903105 ####[facility] [address] [place] [address] Platelets (Bld) [#/Vol] 221.0 E9/L Normal 150.0-500.0 [facility] Comment on above: Performed By: #### 2 915403, 96460823, 7333639, 9623097 ####[facility] [address] [place] [address] RBC (Bld) [#/Vol] 5.2 E12/L Normal 4.3-5.9 [facility] Comment on above: Performed By: #### 2 836709, 33804745, 3956719, 4840647 ####[facility] [address] [place] [address] WBC corrected for nucl RBC Auto (Bld) [#/Vol] 8.3 E9/L Normal 4.0-11.0 [facility] Comment on above: Performed By: #### 2 995164, 87501059, 4816160, 7887500 ####[facility] [address] [place] [address] CHEMISTRYOrdered By: Lab ROP User on 01-22-2023 Glucose [Mass/Vol] 121 mg/dL High 55 - 99 mg/dL [facility] POC Subsection Comment on above: Result Comment: Gareth guerrero RN/ POC Device SN [id number] Invalid Interpretation Code [facility] POC Subsection POC User ID [id number] Invalid Interpretation Code [facility] POC Subsection POC Username LATONIA MALHOTRA Invalid Interpretation Code [facility] POC Subsection CHEMISTRYOrdered By: SYSTEM SYSTEM on [...] 30 mmol/L Normal 21 - 31 mmol/L [facility] Creatinine [Mass/Vol] 1.3 mg/dL Normal 0.5 - 1.3 mg/dL FT Remisol GFR/1.73 sq M.predicted among non-blacks MDRD (S/P/Bld) [Vol rate/Area] 56 mL/min/1.73 m2 Low >=59mL/min/ 1.73 m2 [facility] Chem S Globulin (S) [Mass/Vol] 3.6 g/dL [...] 01-22-2023 Albumin [Mass/Vol] 3.7 g/dL Normal 3.3-5.0 [facility] Comment on above: Performed By: #### 2 844608, 84569144, 5801498, 3816269 ####[facility] [address] [place] [address] Albumin/Globulin (S) [Mass conc ratio] 1.0 Low 1.1-2.2 [facility] Comment on above: Performed By: #### 2 536699, 38053362, 7798386, 6514886 ####[facility] [address] [place] [address] ALP [Catalytic activity/Vol] 47 Int._Unit/L Normal 21-98 [facility] Comment on above: Performed By: #### 2 714918, 34855698, 9771193, 9425480 ####[facility] [address] [place] [address] ALT No additional P-5'-P [Catalytic activity/Vol] 21 Int._Unit/L Normal 6-46 [facility] Comment on above: Performed By: #### 2 323005, 97933352, 9431090, 0811565 ####[facility] [address] [place] [address] Anion gap [Moles/Vol] 15 mmol/L Normal 6-16 [facility] Comment on above: Performed By: #### 2 450106, 96909677, 5818331, 9394054 ####[address] [place] [address] AST [Catalytic activity/Vol] 21 Int._Unit/L Normal 5-43 [facility] Comment on above: Performed By: #### 2 501112, 33734541, 9397593, 5120780 ####[facility] [address] [place] [address] Bilirubin [Mass/Vol] 0.8 mg/dL Normal 0.0-1.1 [facility] Comment on above: Performed By: #### 2 491229, 71726596, 2670630, 6648504 ####[facility] [address] [place] [address] Calcium [Mass/Vol] 9.6 mg/dL Normal 8.9-11.1 [facility] Comment on above: Performed By: #### 2 259119, 70150119, 7483965, 7756895 ####[facility] [address] [place] [address] Chloride [Moles/Vol] 97 mmol/L Low 101-111 [facility] Comment on above: Performed By: #### 2 801683, 03581317, 5979446, 9510247 ####[facility] [address] [place] [address] CO2 [Moles/Vol] 30 mmol/L Normal 21-31 [facility] Comment on above: Performed By: #### 2 986972, 64742068, 3649851, 6393263 ####[facility] [address] [place] [address] Creatinine [Mass/Vol] 1.3 mg/dL Normal 0.5-1.3 [facility] Comment on above: Performed By: #### 2 508275, 00016180, 4453878, 9764407 ####[facility] [address] [place] [address] Globulin (S) [Mass/Vol] 3.6 g/dL Normal 1.4-4.[address] [facility] Comment on above: Performed By: #### 2 740412, 48332843, 9944448, 3613875 ####[facility] [address] [place] [address] Glucose [Mass/Vol] 124 mg/dL Normal 55-199 [facility] Comment on above: Result Comment: If t his glucose result represents a fasting glucose, interpretation should refer to the following reference range: 55-99 mg/dL Performed By: #### 2 755637, 66882612, 5731273, 7585196 ####[facility] [address] [place] [address] Potassium [Moles/Vol] 4.0 mmol/L Normal 3.5-5.3 [facility] Comment on above: Performed By: #### 2 480474, 41846454, 1326584, 1578333 ####[facility] [address] [place] [address] Protein [Mass/Vol] 7.3 g/dL Normal 6.0-7.8 [facility] Comment on above: Performed By: #### 2 417369, 73708616, 5996851, 0816721 ####[facility] [address] [place] [address] Sodium [Moles/Vol] 138 mmol/L Normal 135-145 [facility] Comment on above: Performed By: #### 2 250958, 31917132, 2799429, 0526878 ####[facility] [address] [place] [address] Urea nitrogen [Mass/Vol] 42 mg/dL High 5-21 [facility] Comment on above: Performed By: #### 2 444483, 95685110, 3719331, 0628777 ####[facility] [address] [place] [address] Urea nitrogen/Creatinine [Mass ratio] 32 No Units High 10-20 [facility] Comment on above: Performed By: #### 2 645150, 98730229, 5021413, 4605951 ####[facility] [address] [place] [address] Capillary Glucose POCon Glucose [Mass/Vol] 121 mg/dL High 55-99 [facility] Comment on above: Result Comment: Gareth guerrero RN/ Performed By: #### 2 40772709 ####[facility] [address] [place] [address] Coding Queryon 01-22-2023 Coding Query Normal [facility] HEMATOLOGYOrdered By: SYSTEM SYSTEM on 01-22-2023 [...] Correspondence Off iceon 01-22-2023 Insurance Correspondence Office [id number]#1 .00CD:127 Normal [facility] Interdisciplinary Note - Santosh e Manageron 01-22-2023 Interdisciplinary Note - Television Camera Operator Normal [facility] Comment on above: Result Comment: Elec tronically Signed By: Natalie Grant\.br\Date and Time Signed: 01/22/23 11:13 EDT Interdisciplinary Note - Murphy n 01-22-2023 Interdisciplinary Note - OT Normal [facility] Interdisciplinary Note - PTo n 01-22-2023 Interdisciplinary Note - PT Normal [facility] Message from Medicareon Message from Medicare [id number]#1 .00CD:127 Normal [facility] Progress Note-Physicianon Progress Note-Physician Normal [facility] Comment on above: Result Comment: Elec tronically Signed By: New Johnson DO.br\Date and Time Signed: 01/22/23 14:15 EDT eGFRon 01-22-2023 GFR/1.73 sq M.predicted among non-blacks MDRD (S/P/Bld) [Vol rate/Area] 56 mL/min/1.73 m2 Low >=59 [facility] Comment on above: Order Comment: Order added by Discern Expert. Result Comment: Bilingual Office Assistant earnest kidney disease could be indicated at eGFR's of less than 60 mL/min/1.73m2. Kidney failure is indicated at less than 15 mL/min/1.73m2. Performed By: #### 2 657902, 84258286, 8553322, 7403309 ####[facility] [address] [place] [address] Auto Diffon 01-21-2023 Basophils/100 WBC (Bld) 0.9 % Normal 0.0-2.[address] [facility] Comment on above: Order Comment: Order Added by Discern Expert. Performed By: #### 2 624928, 0290424, 04774369, 91849226, 1055149, 1003831 ####[facility] [address] [place] [address] Basophils/Leukocytes Auto (Bld) [Pure # fraction] 0.1 E9/L Normal 0.0-0.2 [facility] Comment on above: Order Comment: Order Added by Discern Expert. Performed By: #### 2 013349, 6926076, 69906766, 39018949, 3971246, 2001720 ####[address] [place] [address] Eosinophils/100 WBC (Bld) 3.3 % Normal 0.0-8.0 [facility] Comment on above: Order Comment: Order Added by Discern Expert. Performed By: #### 2 353672, 9633504, 24694703, 96381399, 6315429, 7285935 ####[address] [place] [address] Eosinophils/Leukocytes Auto (Bld) [Pure # fraction] 0.4 E9/L Normal 0.0-0.5 [facility] Comment on above: Order Comment: Order Added by Bethany Expert. Performed By: #### 2 575073, 4740015, 83562243, 31201149, 9802366, 0927211 ####[address] [address] Lymphocytes/100 WBC (Bld) 10.4 % Low 14.0-50.0 [facility] Comment on above: Order Comment: Order Added by Bethany Expert. Performed By: #### 2 973581, 5158292, 98185645, 39019049, 4402396, 1006708 ####[address] [address] Lymphocytes/Leukocytes Auto (Bld) [Pure # fraction] 1.2 E9/L Normal 1.0-4.0 [facility] Comment on above: Order Comment: Order Added by Bethany Expert. Performed By: #### 2 809531, 8440199, 82824854, 13037663, 5142581, 0060654 ####[address] [place] [address] Monocytes/100 WBC (Bld) 7.4 % Normal 4.0-14.[address] [facility] Comment on above: Order Comment: Order Added by Discern Expert. Performed By: #### 2 054617, 6972544, 31691591, 33926895, 6021186, 7363920 ####[address] [place] [address] Monocytes/Leukocytes Auto (Bld) [Pure # fraction] 0.9 E9/L Normal 0.2-1.0 [facility] Comment on above: Order Comment: Order Added by Discern Expert. Performed By: #### 2 742975, 5212636, 06017028, 44546936, 9312151, 3038234 ####[address] [place] [address] Neutrophils/100 WBC (Bld) 78.0 % High 36.0-75.0 [facility] Comment on above: Order Comment: Order Added by Discern Expert. Performed By: #### 2 519638, 2614944, 11147286, 71100579, 2280954, 2151778 ####[address] [address] Neutrophils/Leukocytes Auto (Bld) [Pure # fraction] 9.1 E9/L High 2.0-7.5 [facility] Comment on above: Order Comment: Order Added by Discern Expert. Performed By: #### 2 658335, 9834263, 62047922, 83937890, 6762712, 0538820 ####[address] [place] [address] BMPon 01-21-2023 Creatinine [Mass/Vol] 1.2 mg/dL Normal 0.5-1.3 [facility] Comment on above: Performed By: #### 2 260669, 5561286, 93741477, 88814482, 2401023, 3426797 ####[address] [place] [address] Urea nitrogen [Mass/Vol] 38 mg/dL High 5-21 [facility] Comment on above: Performed By: #### 2 267449, 2684463, 44673018, 16593111, 5778735, 6767387 ####[address] [place] [address] Urea nitrogen/Creatinine [Mass ratio] 32 No Units High 10-20 [facility] Comment on above: Performed By: #### 2 063436, 4355635, 72621925, 09329771, 0288401, 0249544 ####[facility] [address] [place] [address] Anion gap [Moles/Vol] 14 mmol/L Normal 6-16 [facility] Comment on above: Performed By: #### 2 174836, 7356947, 70721953, 59959781, 2336713, 8120015 ####[facility] [address] [place] [address] Calcium [Mass/Vol] 9.9 mg/dL Normal 8.9-11.1 [facility] Comment on above: Performed By: #### 2 948629, 3125901, 93116568, 90773252, 4843171, 4878940 ####[facility] [address] [place] [address] Chloride [Moles/Vol] 95 mmol/L Low 101-111 [facility] Comment on above: Performed By: #### 2 397694, 6385185, 40205021, 87669253, 4505075, 6488803 ####[facility] [address] [place] [address] CO2 [Moles/Vol] 31 mmol/L Normal 21-31 [facility] Comment on above: Performed By: #### 2 058835, 4853894, 13206945, 12826785, 4552467, 6112582 ####[facility] [address] [place] [address] Glucose [Mass/Vol] 124 mg/dL Normal 55-199 [facility] Comment on above: Result Comment: If t his glucose result represents a fasting glucose, interpretation should refer to the following reference range: 55-99 mg/dL Performed By: #### 2 194980, 7224333, 13501189, 25996840, 9003783, 0359207 ####[facility] [address] [place] [address] Potassium [Moles/Vol] 4.3 mmol/L Normal 3.5-5.3 [facility] Comment on above: Performed By: #### 2 576171, 5808692, 34893365, 34169554, 4518752, 0024835 ####[facility] [address] [place] [address] Sodium [Moles/Vol] 136 mmol/L Normal 135-145 [facility] Comment on above: Performed By: #### 2 873911, 0195426, 47945407, 32249958, 2901363, 9351756 ####[facility] [address] [place] [address] CBC w/ Auto Diffon Erythrocyte distribution width (RBC) [Ratio] 15.4 % High 10.9-14.2 [facility] Comment on above: Performed By: #### 2 669437, 4026283, 56054620, 32921260, 7103888, 2405052 ####[facility] [address] [place] [address] Hematocrit (Bld) [Volume fraction] 42.5 % Normal 37.7-49.0 [facility] Comment on above: Performed By: #### 2 391996, 2019664, 59413561, 62204047, 4272122, 9294663 ####[facility] [address] [place] [address] Hemoglobin (Bld) [Mass/Vol] 13.9 g/dL Normal 13.5-17.5 [facility] Comment on above: Performed By: #### 2 454929, 3218669, 91985733, 65012911, 2604537, 5391943 ####[facility] [address] [place] [address] MCH (RBC) [Entitic mass] 27.3 pg Normal 27.0-34.0 [facility] Comment on above: Performed By: #### 2 632754, 1330365, 28568085, 64106795, 2778269, 0016013 ####[facility] [address] [place] [address] MCHC (RBC) [Mass/Vol] 32.7 g/dL Normal 31.4-36.0 [facility] Comment on above: Performed By: #### 2 602995, 6814366, 61740167, 33789617, 7887306, 4007698 ####[address] [address] MCV (RBC) [Entitic vol] 83.4 fL Normal 80.0-100.0 [facility] Comment on above: Performed By: #### 2 282382, 6044893, 44031825, 53915448, 4624186, 2110646 ####[address] [address] Platelet mean volume (Bld) [Entitic vol] 8.6 fL Normal 6.4-10.8 [facility] Comment on above: Performed By: #### 2 711459, 2133846, 20435891, 99053593, 1686354, 2319884 ####[address] [address] Platelets (Bld) [#/Vol] 252.0 E9/L Normal 150.0-500.0 [facility] Comment on above: Performed By: #### 2 815596, 0034198, 20299867, 50307366, 3434084, 9876449 ####[address] [place] [address] RBC (Bld) [#/Vol] 5.1 E12/L Normal 4.3-5.9 [facility] Comment on above: Performed By: #### 2 057313, 5690522, 62151790, 39804776, 7226297, 4584355 ####[address] [address] WBC corrected for nucl RBC Auto (Bld) [#/Vol] 11.6 E9/L High 4.0-11.0 [facility] Comment on above: Performed By: #### 2 966826, 6668284, 87283895, 71549726, 3739466, 8064014 ####[facility] [address] [place] [address] CHEMISTRYOrdered By: SYSTEM SYSTEM on 01-21-2023 Troponin [...] 62 mL/min/1.73 m2 Normal >=59mL/min/ 1.73 m2 [facility] Chem S Globulin (S) [Mass/Vol] 3.8 g/dL [...] Treatmenton 12-24 Consent for Treatment [id number] .[id number]:127 Normal [facility] ED Clinical Summaryon 2022 ED Clinical Summary Normal [facility] ED Note-Physicianon 01-22-20 23 ED Note-Physician Normal [facility] Comment on above: Result Comment: Elec tronically Signed By: Gustavo Yusuf DO.br\Date and Time Signed: 01/21/23 19:26 EDT ED Patient Education Noteon 01-21-2023 ED Patient Education Note Normal [facility] ED Patient Summaryon 023 ED Patient Summary Normal [facility] HEMATOLOGYOrdered By: SYSTEM SYSTEM on 01-21-2023 Basophils/100 WBC (Bld) 0.9 % Normal 0.0 - 2.0 % [facility] HemeAutoSS Basophils/Leukocytes Auto (Bld) [Pure # fraction] [...] 5.1 E12/L Normal 4.3 - 5.9 E12/L [facility] HemeAutoSS WBC corrected for nucl RBC Auto (Bld) [#/Vol] 11.6 E9/L High 4.0 - 11.0 E9/L [facility] HemeAutoSS Hep Func Panelon 01-21-2023 Bilirubin.direct [Mass/Vol] 0.1 mg/dL Normal 0.1-0.4 [facility] Comment on above: Performed By: #### 2 939662, 8133066, 15090700, 95825896, 3367513, 2225453 ####[facility] [address] [place] [address] Bilirubin.indirect [Mass or moles/Vol] 0.8 mg/dL Normal 0.1-0.9 [facility] Comment on above: Performed By: #### 2 283665, 4280207, 03139812, 49166277, 5532797, 6807709 ####[facility] [address] [place] [address] Albumin [Mass/Vol] 3.9 g/dL Normal 3.3-5.0 [facility] Comment on above: Performed By: #### 2 329159, 5831589, 62281845, 94037870, 4475397, 8619358 ####[facility] [address] [place] [address] Albumin/Globulin (S) [Mass conc ratio] 1.0 Low 1.1-2.2 [facility] Comment on above: Performed By: #### 2 316229, 0019931, 17372880, 36575049, 6296300, 9425364 ####[facility] [address] [place] [address] ALP [Catalytic activity/Vol] 50 Int._Unit/L Normal 21-98 [facility] Comment on above: Performed By: #### 2 502002, 0718989, 79132400, 58083539, 5744037, 4195740 ####[facility] [address] [place] [address] ALT No additional P-5'-P [Catalytic activity/Vol] 23 Int._Unit/L Normal 6-46 [facility] Comment on above: Performed By: #### 2 608136, 7881785, 82478503, 15804305, 3388095, 8961134 ####[facility] [address] [place] [address] AST [Catalytic activity/Vol] 22 Int._Unit/L Normal 5-43 [facility] Comment on above: Performed By: #### 2 079969, 1405261, 01870838, 65891617, 6400083, 6169349 ####[facility] [address] [place] [address] Bilirubin [Mass/Vol] 0.9 mg/dL Normal 0.0-1.1 [facility] Comment on above: Performed By: #### 2 349457, 3158323, 36377185, 08537925, 8255498, 8876885 ####[facility] [address] [place] [address] Globulin (S) [Mass/Vol] 3.8 g/dL Normal 1.4-4.[address] [facility] Comment on above: Performed By: #### 2 077524, 2349238, 73891453, 96033159, 1285446, 9689406 ####[facility] [address] [place] [address] Protein [Mass/Vol] 7.7 g/dL Normal 6.0-7.8 [facility] Comment on above: Performed By: #### 2 173448, 8167261, 49785827, 45770600, 2183014, 0022783 ####[facility] [address] [place] [address] Senior Living Recordson 01-21 [facility] Records [id number]# 1.00CD:127 Normal [facility] Troponin 0 Hr.on 01-21-2023 Troponin I.cardiac [Mass/Vol] 25.50 pg/mL Normal 15.90-38.40 [facility] Comment on above: Result Comment: The 95% CI (Confidence Interval) PPV (Positive Predictive Value) for myocardial infarction in females is 38 pg/mL, in males 51 pg/mL. The results should be used in conjunction with clinical conditions of myocardial infarction.(Access High Sensitivity Troponin I Instructions For Use, [employer], December 2017) Performed By: #### 2 384525, 7309310, 88230934, 51207358, 3451995, 9479997 ####[facility] [address] [place] [address] Troponin 3 Hr.on 01-21-2023 Troponin I.cardiac [Mass/Vol] 23.90 pg/mL Normal 15.90-38.40 [facility] Comment on above: Result Comment: The 95% CI (Confidence Interval) PPV (Positive Predictive Value) for myocardial infarction in females is 38 pg/mL, in males 51 pg/mL. The results should be used in conjunction with clinical conditions of myocardial infarction.(SurDoc High Sensitivity Troponin I Instructions For Use, [employer], December 2017) Performed By: #### 1 0230200 ####[address] [address] UA With Cult Reflexon 2022 Bilirubin Ql (U) Negative Normal Negative [facility] Comment on above: Performed By: #### 1 7984030 ####[address] Clarity (U) CLEAR Normal Clear [facility] Comment on above: Performed By: #### 1 3369063 ####[address] [address] Color (U) STRAW Abnormal Yellow [facility] Comment on above: Performed By: #### 1 7043468 ####[address] [address] Epithelial cells.squamous LM.HPF (Urine sed) [#/Area] 0-2 Normal 0-2 [facility] Comment on above: Performed By: #### 1 3351516 ####[facility] [address] [place] [address] Glucose Test strip (U) [Mass/Vol] Negative Normal Negative [facility] Comment on above: Performed By: #### 1 2070303 ####[facility] [address] [place] [address] Hemoglobin Ql (U) Negative Normal Negative [facility] Comment on above: Performed By: #### 1 1952131 ####[address] [address] Ketones (U) [Mass/Vol] Negative Normal Negative [facility] Comment on above: Performed By: #### 1 1090637 ####[address] [address] [place].plasma/[place].R BC (Bld) [Mass ratio] 0-3 Normal 0-3 [facility] Comment on above: Performed By: #### 1 3910536 ####[address] [address] Nitrite Ql (U) Negative Normal Negative [facility] Comment on above: Performed By: #### 1 8951891 ####[address] [address] pH (U) 6.0 [pH] Invalid Interpretation Code 5.0-9.0 [facility] Comment on above: Performed By: #### 1 3244987 ####[address] [address] Protein (U) [Mass/Vol] Negative Normal Negative [facility] Comment on above: Performed By: #### 1 7027265 ####[address] [address] Specific gravity (U) [Rel density] 1.010 Invalid Interpretation Code 1.005-1.030 [facility] Comment on above: Performed By: #### 1 4369627 ####[address] [address] Type of Urine collection method Clean Catch Normal [facility] Comment on above: Performed By: #### 1 5814947 ####[facility] [address] Urobilinogen Qn (U) 0.2 {Lei'U}/dL Normal 0.0-1.0 [facility] Comment on above: Performed By: #### 1 6716768 ####[facility] [address] WBC Auto Ql (U) Negative Normal Negative [facility] Comment on above: Performed By: #### 1 1393064 ####[facility] [address] [place] [address] WBC LM.HPF (Urine sed) [#/Area] 0-5 Normal 0-5 [facility] Comment on above: Performed By: #### 1 4157285 ####[facility] [address] [place], [place] [address] URINALYSISOrdered By: Karen Vergara on 01-21-2023 Bilirubin [...] PM) Normal Negative [facility] UA Auto SS [place].plasma/[place].R BC (Bld) [Mass ratio] 0-3 /HPF Normal 0-3/HPF [facility] UA Au to SS Nitrite Ql (U) Negative (01/21/23 4:41 PM) Normal Negative [facility] UA Auto SS pH (U) 6.0 *NA* (01/21/23 4:41 PM) Invalid Interpretation Code 5.0 - 9.0 [facility] UA Auto SS Protein (U) [Mass/Vol] Negative (01/21/23 4:41 PM) Normal Negative [facility] UA Auto SS Specific gravity (U) [Rel density] 1.010 *NA* (01/21/23 4:41 PM) Invalid Interpretation Code 1.005 - 1.030 [facility] UA Auto SS UA Spec Desc Clean Catch (01/21/23 4:41 PM) Normal [facility] UA Auto SS Urobilinogen Qn (U) 0.4968505 {Lei'U}/dL Normal 0.0 - 1.0 EU/dL [facility] UA Auto SS WBC Auto Ql (U) Negative (01/21/23 4:41 PM) Normal Negative [facility] UA Auto SS WBC LM.HPF (Urine sed) [#/Area] 0-5 /HPF Normal 0-5/HPF [facility] UA Auto SS XR Chest Single Viewon 01-21 XR Chest Single View Normal [facility] eGFRon 01-21-2023 GFR/1.73 sq M.predicted among non-blacks MDRD (S/P/Bld) [Vol rate/Area] 62 mL/min/1.73 m2 Normal >=59 [facility] Comment on above: Order Comment: Order added by Discern Expert. Result Comment: Bilingual Office Assistant earnest kidney disease could be indicated at eGFR's of less than 60 mL/min/1.73m2. Kidney failure is indicated at less than 15 mL/min/1.73m2. Performed By: #### 2 550156, 4522044, 35896120, 62368512, 7295952, 9517157 ####[facility] [address] [place] [address] Discharge Instructionson Discharge Instructions [id number] .[id number]:127 Normal [facility] Capillary Glucose POCon 12-23 Glucose [Mass/Vol] 117 mg/dL High 55-99 [facility] Comment on above: Result Comment: Yazmin bri Meter Performed By: #### 2 00057103 ####[facility] [address] [place] [address] Family Medicine Office/Clini c Noteon 01-15-2023 Family Medicine Office/Clinic Note Normal [facility] Comment on above: Result Comment: Elec tronically Signed By: SHAISTA POTTS, Dennise.br\Date and Time Signed: 01/15/23 16:46 EDT Capillary Glucose POCon 12-23 Glucose [Mass/Vol] 121 mg/dL High 55-99 [facility] Comment on above: Result Comment: Yazmin bri Meter Performed By: #### 2 [id number] ####[facility] [address] [place] [address] Capillary Glucose POCon 12-23 Glucose [Mass/Vol] 127 mg/dL [address] Comment on above: Result Comment: Yazmin bri Meter Performed By: #### 2 33786208 ####[facility] [address] [place] [address] Capillary Glucose POCon 12-22 Glucose [Mass/Vol] 104 mg/dL [facility] 55-99 [facility] Comment on above: Result Comment: Yazmin bri Meter Performed By: #### 2 43711966 ####[facility] [address] [place] [address] Capillary Glucose POCon 12-22 Glucose [Mass/Vol] 121 mg/dL [facility] [address] Comment on above: Result Comment: Yazmin bri Meter Performed By: #### 2 61672629 ####[facility] [address] [place] [address] Capillary Glucose POCon 12-22 Glucose [Mass/Vol] 110 mg/dL High 55-99 [facility] Comment on above: Result Comment: Yazmin bri Meter Performed By: #### 2 04074993 ####[facility] [address] [place] [address] Capillary Glucose POCon 12-22 Glucose [Mass/Vol] 119 mg/dL High 55-99 [facility] Comment on above: Result Comment: Yazmin bri Meter Performed By: #### 2 07121830 ####[facility] [address] [place] [address] Capillary Glucose POCon 12-22 Glucose [Mass/Vol] 141 mg/dL High 55-99 [facility] Comment on above: Result Comment: Yazmin bri Meter Performed By: #### 2 51741004 ####[facility] [address] [place] [address] Capillary Glucose POCon 12-22 Glucose [Mass/Vol] 104 mg/dL High 55-99 [facility] Comment on above: Result Comment: Yazmin bri Meter Performed By: #### 2 67355422 ####[facility] [address] [place] [address] BMPon 12-30-2022 Calcium [Mass/Vol] 9.1 mg/dL Normal 8.9-11.1 [facility] Comment on above: Performed By: #### 7 [id number], 8556733, 81597243 ####[facility] [address] [place] [address] Anion gap [Moles/Vol] 18 mmol/L High 6-16 [facility] Comment on above: Performed By: #### 7 65149829, 4171680, 10484340 ####[facility] [address] [place] [address] Chloride [Moles/Vol] 91 mmol/L Low 101-111 [facility] Comment on above: Performed By: #### 7 28009608, 9225809, 88668953 ####[facility] [address] [place] [address] CO2 [Moles/Vol] 30 mmol/L Normal 21-31 [facility] Comment on above: Performed By: #### 7 06140413, 8702235, 84218530 ####[facility] [address] [place] [address] Creatinine [Mass/Vol] 1.3 mg/dL Normal 0.5-1.3 [facility] Comment on above: Performed By: #### 7 05052978, 9747780, 36019428 ####[facility] [address] [place] [address] Glucose [Mass/Vol] 171 mg/dL Normal 55-199 [facility] Comment on above: Result Comment: If t his glucose result represents a fasting glucose, interpretation should refer to the following reference range: 55-99 mg/dL Performed By: #### 7 27908880, 9462159, 16305809 ####[facility] [address] [place] [address] Potassium [Moles/Vol] 4.2 mmol/L Normal 3.5-5.3 [facility] Comment on above: Performed By: #### 7 56708882, 8070895, 72999531 ####[facility] [address] [place] [address] Sodium [Moles/Vol] 135 mmol/L Normal 135-145 [facility] Comment on above: Performed By: #### 7 37466813, 8986750, 85405801 ####[facility] [address] [place] [address] Urea nitrogen [Mass/Vol] 36 mg/dL High 5-21 [facility] Comment on above: Performed By: #### 7 14764305, 7663371, 74355860 ####[facility] [address] [place] [address] Urea nitrogen/Creatinine [Mass ratio] 28 No Units High 10-20 [facility] Comment on above: Performed By: #### 7 18623598, 4852084, 84320014 ####[facility] [address] [place] [address] HmgI6ibf 12-30-2022 HbA1c (Bld) [Mass fraction] 6.9 % High <=5.9 [facility] Comment on above: Performed By: #### 7 67972379, 3270003, 61104988 ####[facility] [address]172 [place] [address] eGFRon 12-30-2022 GFR/1.73 sq M.predicted among non-blacks MDRD (S/P/Bld) [Vol rate/Area] 56 mL/min/1.73 m2 Low >=59 [facility] Comment on above: Order Comment: Order added by Discern Expert. Result Comment: Bilingual Office Assistant earnest kidney disease could be indicated at eGFR's of less than 60 mL/min/1.73m2. Kidney failure is indicated at less than 15 mL/min/1.73m2. Performed By: #### 7 [id number], 8267398, 86213180 ####[facility] [address] [place] [address] Capillary Glucose POCon 08-0 Glucose [Mass/Vol] 141 mg/dL [address] Comment on above: Result Comment: Yazmin bri Meter Performed By: #### 2 79892917 ####[facility] [address] [place] [address] Capillary Glucose POCon 08-0 Glucose [Mass/Vol] 101 mg/dL [address] Comment on above: Result Comment: Yazmin bri Meter Performed By: #### 2 82910787 ####[facility] [address] [place] [address] C Blood Charcoalon 3 Blood Culture Charcoal Normal [facility] Comment on above: Performed By: #### 1 6148234 ####[facility] [address] [place] [address] Capillary Glucose POCon 08-0 Glucose [Mass/Vol] 135 mg/dL [address] Comment on above: Result Comment: Yazmin bri Meter Performed By: #### 2 12956710 ####[facility] At[address] [place] [address] Capillary Glucose POCon 08-0 Glucose [Mass/Vol] 110 mg/dL High 55-99 [facility] Comment on above: Result Comment: Yazmin bri Meter Performed By: #### 2 08457330 ####[facility] [address] [place] [address] Consultation Noteon 12-24-19 Consultation Note Normal [facility] Comment on above: Result Comment: Elec tronically Signed By: Marcus POTTS, [place]\.br\Date and Time Signed: 12/23/22 07:33 EDT Family Medicine Office/Clini c Noteon 12-23-2022 Family Medicine Office/Clinic Note Normal [facility] Comment on above: Result Comment: Elec tronically Signed By: SHAISTA POTTS, Donta\.br\Date and Time Signed: 12/22/22 22:31 EDT C Blood Charcoalon Blood Culture Charcoal Normal [facility] Comment on above: Performed By: #### 1 [id number] ####[facility] [address] [place] [address] U Legi Agon 12-22-2022 L. pneumophila 1 Ag IA Ql (U) Negative Invalid Interpretation Code Negative [facility] Comment on above: Result Comment: Pres umptive negative for L. pneumophila serogroup 1 antigen in urine,suggesting no recent or current infection. Legionnaires' diseasecannot be ruled out since other serogroups and species may also causedisease.Performed at: [address] [id number] MD Tyler Gurrola Performed By: #### 2 224081 ####[facility] [address] [place] [address] C Urineon 12-21-2022 Bacteria identified Cx Nom (U) Normal [facility] Comment on above: Performed By: #### 1 3936985, 0016956 ####[facility] [address] [place] [address] Capillary Glucose POCon 11-23 Glucose [Mass/Vol] 134 mg/dL High 55-99 [facility] Comment on above: Result Comment: Yazmin bri Meter Performed By: #### 2 71101354 ####[facility] [address] [address] Auto DiffOrdered By: SYSTEM SYSTEM on 12-20-2022 Basophils/100 WBC (Bld) 0.5 % Normal 0.0-2.0 [facility] HemeAutoSS Comment on above: Order Comment: Order Added by Discern Expert. Performed By: #### 2 953275, 4663737, 52031105, 8584191 ####[facility] [address] [address] Basophils/Leukocytes Auto (Bld) [Pure # fraction] 0.0 E9/L Normal 0.0-0.2 [facility] HemeAutoSS Comment on above: Order Comment: Order Added by Discern Expert. Performed By: #### 2 536289, 2592681, 56758604, 1034369 ####[address] [address] Eosinophils/100 WBC (Bld) 7.9 % Normal 0.0-8.0 [facility] HemeAutoSS Comment on above: Order Comment: Order Added by Discern Expert. Performed By: #### 2 790533, 1091052, 40877795, 4661671 ####[address] [address] Eosinophils/Leukocytes Auto (Bld) [Pure # fraction] 0.8 E9/L High 0.0-0.5 [facility] HemeAutoSS Comment on above: Order Comment: Order Added by Discern Expert. Performed By: #### 2 076446, 6002301, 98217405, 9506225 ####[address] [address] Lymphocytes/100 WBC (Bld) 9.5 % Low 14.0-50.0 [facility] HemeAutoSS Comment on above: Order Comment: Order Added by Discern Expert. Performed By: #### 2 119629, 4845821, 21420620, 1162178 ####[address] [address] Lymphocytes/Leukocytes Auto (Bld) [Pure # fraction] 1.0 E9/L Normal 1.0-4.0 FT HemeAutoSS Comment on above: Order Comment: Order Added by Discern Expert. Performed By: #### 2 841461, 3626766, 11269377, 8231425 ####[address] [address] Monocytes/100 WBC (Bld) 7.6 % Normal 4.0-14.0 F [facility] HemeAutoSS Comment on above: Order Comment: Order Added by Discern Expert. Performed By: #### 2 533496, 9977694, 33257021, 8493210 ####[address] [address] Monocytes/Leukocytes Auto (Bld) [Pure # fraction] 0.8 E9/L Normal 0.2-1.0 [facility] HemeAutoSS Comment on above: Order Comment: Order Added by Discern Expert. Performed By: #### 2 503256, 1127342, 58064562, 0740384 ####[address] [address] Neutrophils/100 WBC (Bld) 74.5 % Normal 36.0-75.0 [facility] HemeAutoSS Comment on above: Order Comment: Order Added by Discern Expert. Performed By: #### 2 114359, 2550001, 59987501, 6392275 ####[address] [address] Neutrophils/Leukocytes Auto (Bld) [Pure # fraction] 7.7 E9/L High 2.0-7.5 [facility] HemeAutoSS Comment on above: Order Comment: Order Added by Discern Expert. Performed By: #### 2 858336, 0331421, 88484323, 4535134 ####[address] [address] BMPOrdered By: SYSTEM SYSTEM on 12-20-2022 Anion gap [Moles/Vol] 8 mmol/L Normal 6-16 [facility] C Remisol Comment on above: Performed By: #### 2 545997, 8580672, 50895242, 6979873 ####[address] [place] [address] Calcium [Mass/Vol] 7.9 mg/dL Low 8.9-11.1 FT R emisol Comment on above: Performed By: #### 2 296031, 7873005, 77079019, 5148315 ####[facility] [address] [place] [address] Chloride [Moles/Vol] 105 mmol/L Normal 101-111 [facility] Remisol Comment on above: Performed By: #### 2 882262, 0575467, 17730651, 0038765 ####[facility] [address] [place] [address] CO2 [Moles/Vol] 25 mmol/L Normal 21-31 [facility] Ashwin luanne Comment on above: Performed By: #### 2 449148, 2953882, 31266705, 6286201 ####[facility] [address] [place] [address] Creatinine [Mass/Vol] 1.0 mg/dL Normal 0.5-1.3 [facility] C Remisol Comment on above: Performed By: #### 2 435650, 3952204, 37533096, 5899639 ####[facility] [address] [place] [address] Glucose [Mass/Vol] 106 mg/dL Normal 55-199 [facility] R emisol Comment on above: Result Comment: If t his glucose result represents a fasting glucose, interpretation should refer to the following reference range: 55-99 mg/dL Performed By: #### 2 891777, 8543508, 53089990, 5847614 ####[facility] [address] [place] [address] Potassium [Moles/Vol] 4.4 mmol/L Normal 3.5-5.3 [facility] C Remisol Comment on above: Performed By: #### 2 508099, 2745756, 43539664, 5747673 ####[facility] [address] [place] [address] Sodium [Moles/Vol] 134 mmol/L Low 135-145 [facility] R emisol Comment on above: Performed By: #### 2 848066, 4612766, 28795843, 2645656 ####[facility] [address] [place] [address] Urea nitrogen [Mass/Vol] 22 mg/dL High 5-21 [facility] Remisol Comment on above: Performed By: #### 2 869567, 5808671, 51983851, 9878083 ####[address] [address] BMPon 12-20-2022 Urea nitrogen/Creatinine [Mass ratio] 22 No Units High 10-20 [facility] Comment on above: Performed By: #### 2 223553, 2345351, 51727668, [id number] ####[address] [address] CBC w/ Auto DiffOrdered By: Bony Hdez on 12-20-2022 Erythrocyte distribution width (RBC) [Ratio] 14.7 % High 10.9-14.2 [facility] HemeAutoSS Comment on above: Performed By: #### 2 967554, 1699134, 24704677, 2561637 ####[address] [address] Hematocrit (Bld) [Volume fraction] 34.6 % Low 37.7-49.0 [facility] HemeAutoSS Comment on above: Performed By: #### 2 764364, 7064185, 87066879, 4275585 ####[address] [address] Hemoglobin (Bld) [Mass/Vol] 11.7 g/dL Low 13.5-17.5 [facility] HemeAutoSS Comment on above: Performed By: #### 2 170562, 1508227, 61689398, 0067909 ####[address] [address] MCH (RBC) [Entitic mass] 28.6 pg Normal 27.0-34.0 [facility] HemeAutoSS Comment on above: Performed By: #### 2 912189, 1851243, 16451916, 7713587 ####[place] [address] MCHC (RBC) [Mass/Vol] 33.7 g/dL Normal 31.4-36.0 [facility] HemeAutoSS Comment on above: Performed By: #### 2 229448, 3070085, 92245067, 7699513 ####[place] [address] MCV (RBC) [Entitic vol] 84.7 fL Normal 80.0-100.0 [facility] HemeAutoSS Comment on above: Performed By: #### 2 387682, 1273153, 52268285, 8180345 ####[place] [address] Platelet mean volume (Bld) [Entitic vol] 9.5 fL Normal 6.4-10.8 [facility] HemeAutoSS Comment on above: Performed By: #### 2 571662, 5244379, 53894499, 8077680 ####[place] [address]2457 Platelets (Bld) [#/Vol] 216.0 E9/L Normal 150.0-500.0 [facility] HemeAutoSS Comment on above: Performed By: #### 2 460193, 8914113, 04624897, 5294207 ####[place] 8[address]2457 RBC (Bld) [#/Vol] 4.1 E12/L Low 4.3-5.9 [facility] HemeAutoSS Comment on above: Performed By: #### 2 260982, 6728837, 03006069, 3235836 ####[place] 8[address]2457 WBC corrected for nucl RBC Auto (Bld) [#/Vol] 10.3 E9/L Normal 4.0-11.0 [facility] HemeAutoSS Comment on above: Performed By: #### 2 372639, 1138399, 86553339, 9524803 ####[facility] [address] [place] [address] CHEMISTRYOrdered By: Lab ROP User on 12-20-2022 Glucose [Mass/Vol] 109 mg/dL High 55 - 99 mg/dL [facility] POC Subsection Comment on above: Result Comment: Gareth guerrero RN/ POC Device SN [id number] Invalid Interpretation Code [facility] POC Subsection POC User ID [id number] Invalid Interpretation Code [facility] POC Subsection POC Username SAMANTHA LAMBERT Invalid Interpretation Code [facility] POC Subsection CHEMISTRYOrdered By: SYSTEM SYSTEM on 12-20-2022 Urea nitrogen/Creatinine [Mass ratio] 22 mg/mg High 10 - 20 [facility] Remisol Capillary Glucose POCon 11-23 Glucose [Mass/Vol] 198 mg/dL High 55-99 [facility] Comment on above: Result Comment: Yazmin bri Meter Performed By: #### 2 [id number] ####[facility] [address] [place] [address] Glucose [Mass/Vol] 109 mg/dL High 55-99 [facility] Comment on above: Result Comment: Gareth GARDINER Performed By: #### 2 80630978 ####[facility] [address] [place] [address] Discharge Documentationon Discharge Documentation [id number]#1 .00CD:127 Normal [facility] Inpatient Patient Summaryon 12-20-2022 Inpatient Patient Summary Normal [facility] Message from Medicareon 11-23 Message from Medicare [id number]# 1.00CD:127 Normal [facility] Monitor Recordon 12-20-2022 Monitor Record [id number]# 1.00CD:127 Normal [facility] Monitor Record [id number]# 1.00CD:127 Normal [facility] Monitor Record [id number]# 1.00CD:127 Normal [facility] Progress Note-Nurseon 2022 Progress Note-Nurse SBAR report called fanta Robert. Patient was transferred into wheelchair x2 stand pivot. Patient discharged to [facility] room 17. Transport by Samantha Genoa POCT. Normal [facility] Transfer Documentson 023 Transfer Documents [id number]#1 .00CD:127 Normal [facility] eGFROrdered By: SYSTEM InnovaspireE Nuevolution on 12-20-2022 GFR/1.73 sq M.predicted among non-blacks MDRD (S/P/Bld) [Vol rate/Area] 77 mL/min/1.73 m2 Normal >=59 [facility] Chem S Comment on above: Order Comment: Order added by Discern Expert. Result Comment: Bilingual Office Assistant earnest kidney disease could be indicated at eGFR's of less than 60 mL/min/1.73m2. Kidney failure is indicated at less than 15 mL/min/1.73m2. Performed By: #### 2 508065, 9834887, 81569542, 3057671 ####[facility] [address] [place] [address] Auto Diffon 12-19-2022 Basophils/100 WBC (Bld) 0.4 % Normal 0.0-2.[address] [facility] Comment on above: Order Comment: Order Added by Discern Expert. Performed By: #### 1 6837628, 2580375, 1030273, 1540532 ####[facility] [address] [place] [address] Basophils/Leukocytes Auto (Bld) [Pure # fraction] 0.0 E9/L Normal 0.0-0.2 [facility] Comment on above: Order Comment: Order Added by Discern Expert. Performed By: #### 1 8724648, 5171729, 9627783, 5303608 ####[facility] [address] [place] [address] Eosinophils/100 WBC (Bld) 4.2 % Normal 0.0-8.0 [facility] Comment on above: Order Comment: Order Added by Discern Expert. Performed By: #### 1 5999623, 7657423, 2625004, 6363623 ####[place] [address] [place] [address] Eosinophils/Leukocytes Auto (Bld) [Pure # fraction] 0.6 E9/L High 0.0-0.5 [facility] Comment on above: Order Comment: Order Added by Discern Expert. Performed By: #### 1 7259426, 4678427, 1450154, 1233341 ####[address] [address] Lymphocytes/100 WBC (Bld) 7.3 % Low 14.0-50.0 [facility] Comment on above: Order Comment: Order Added by Bethany Expert. Performed By: #### 1 4095585, 4484937, 6296230, 9944886 ####[address] [address] Lymphocytes/Leukocytes Auto (Bld) [Pure # fraction] 1.0 E9/L Normal 1.0-4.0 [facility] Comment on above: Order Comment: Order Added by Bethany Expert. Performed By: #### 1 9124740, 9976850, 2095504, 4323441 ####[address] [address] Monocytes/100 WBC (Bld) 6.5 % Normal 4.0-14.[address] [facility] Comment on above: Order Comment: Order Added by Discern Expert. Performed By: #### 1 9451231, 9829428, 6088403, 1722191 ####[address] [address] Monocytes/Leukocytes Auto (Bld) [Pure # fraction] 0.9 E9/L Normal 0.2-1.0 [facility] Comment on above: Order Comment: Order Added by Bethany Expert. Performed By: #### 1 8735982, 1990408, 3178903, 3239539 ####[address] [place] [address] Neutrophils/100 WBC (Bld) 81.6 % High 36.0-75.0 [facility] Comment on above: Order Comment: Order Added by Discern Expert. Performed By: #### 1 4922138, 5697084, 5156166, 0393994 ####[facility] [address] [place] [address] Neutrophils/Leukocytes Auto (Bld) [Pure # fraction] 10.7 E9/L High 2.0-7.5 [facility] Comment on above: Order Comment: Order Added by Discern Expert. Performed By: #### 1 2411892, 5462863, 8821186, 6955911 ####[facility] [address] [place] [address] BMPon 12-19-2022 Anion gap [Moles/Vol] 11 mmol/L Normal 6-16 [facility] Comment on above: Performed By: #### 1 1318749, 1717443, 5770681, 0911819 ####[facility] [address] [place] [address] Calcium [Mass/Vol] 8.5 mg/dL Low 8.9-11.1 [facility] Comment on above: Performed By: #### 1 4434943, 2480553, 9184273, 3844139 ####[facility] [address] [place] [address] Chloride [Moles/Vol] 103 mmol/L Normal 101-111 [facility] Comment on above: Performed By: #### 1 5123529, 6696929, 4072592, 3089973 ####[facility] [address] [place] [address] CO2 [Moles/Vol] 28 mmol/L Normal 21-31 [facility] Comment on above: Performed By: #### 1 0212211, 5322707, 6498912, 5009554 ####[facility] [address] [place] [address] Creatinine [Mass/Vol] 1.2 mg/dL Normal 0.5-1.3 [facility] Comment on above: Performed By: #### 1 3801354, 6040026, 5774805, 0998702 ####[facility] [address] [place] [address] Glucose [Mass/Vol] 86 mg/dL Normal 55-199 [facility] Comment on above: Result Comment: If t his glucose result represents a fasting glucose, interpretation should refer to the following reference range: 55-99 mg/dL Performed By: #### 1 4198503, 7092534, 3173434, 1408515 ####[facility] [address] [place] [address] Potassium [Moles/Vol] 4.5 mmol/L Normal 3.5-5.3 [facility] Comment on above: Performed By: #### 1 7160486, 7383999, 1745512, 7081915 ####[facility] [address] [place] [address] Sodium [Moles/Vol] 137 mmol/L Normal 135-145 [facility] Comment on above: Performed By: #### 1 2602732, 6429783, 6514637, 4846309 ####[facility] [address] [place] [address] Urea nitrogen [Mass/Vol] 35 mg/dL High 5-21 [facility] Comment on above: Performed By: #### 1 4319804, 3825520, 3403929, 7708641 ####[facility] [address] [place] [address] Urea nitrogen/Creatinine [Mass ratio] 29 No Units High 10-20 [facility] Comment on above: Performed By: #### 1 6005667, 9370976, 6197515, 1498421 ####[facility] [address] [place] [address] CBC w/ Auto Diffon 3 Erythrocyte distribution width (RBC) [Ratio] 15.0 % High 10.9-14.2 [facility] Comment on above: Performed By: #### 1 0134400, 0176478, 9667690, 3760642 ####[facility] [address] [place] [address] Hematocrit (Bld) [Volume fraction] 38.4 % Normal 37.7-49.0 [facility] Comment on above: Performed By: #### 1 2069948, 5985395, 1017693, 5183365 ####[place] [address] [place] [address] Hemoglobin (Bld) [Mass/Vol] 12.7 g/dL Low 13.5-17.5 [facility] Comment on above: Performed By: #### 1 6397512, 3827471, 2140843, 5492730 ####[address] [address] MCH (RBC) [Entitic mass] 27.9 pg Normal 27.0-34.0 [facility] Comment on above: Performed By: #### 1 3493851, 5449403, 5677282, 4295130 ####[address] [address] MCHC (RBC) [Mass/Vol] 32.9 g/dL Normal 31.4-36.0 [facility] Comment on above: Performed By: #### 1 6138559, 9013871, 3753024, 3711353 ####[address] [address] MCV (RBC) [Entitic vol] 84.8 fL Normal 80.0-100.0 [facility] Comment on above: Performed By: #### 1 0998653, 5868601, 0831980, 0744551 ####[place] [place] [address] Platelet mean volume (Bld) [Entitic vol] 9.5 fL Normal 6.4-10.8 [facility] Comment on above: Performed By: #### 1 2235582, 5827397, 6705631, 6798167 ####[address] [address] Platelets (Bld) [#/Vol] 230.0 E9/L Normal 150.0-500.0 [facility] Comment on above: Performed By: #### 1 5679063, 6889740, 0567043, 8173918 ####[facility] [address] [place] [address] RBC (Bld) [#/Vol] 4.5 E12/L Normal 4.3-5.9 [facility] Comment on above: Performed By: #### 1 5994090, 8948148, 6892036, 9786182 ####[facility] [address] [place] [address] WBC corrected for nucl RBC Auto (Bld) [#/Vol] 13.1 E9/L High 4.0-11.0 [facility] Comment on above: Performed By: #### 1 0741615, 9927240, 4210275, 9042235 ####[facility] [address] [place] [address] CHEMISTRYOrdered By: Lab ROP User on 12-19-2022 Glucose [Mass/Vol] 210 mg/dL High 55 - 99 mg/dL [facility] POC Subsection Comment on above: Result Comment: Gareth guerrero RN/ POC Device SN [id number] Invalid Interpretation Code FT POC Subsection POC User ID [id number] Invalid Interpretation Code [facility] POC Subsection POC Username SHER GAVIRIA Invalid Interpretation Code FT POC Subsection Glucose [Mass/Vol] 111 mg/dL High 55 - 99 mg/dL [facility] POC Subsection Comment on above: Result Comment: Gareth guerrero RN/ POC Device SN [id number] Invalid Interpretation Code FT POC Subsection POC User ID [id number] Invalid Interpretation Code FT POC Subsection POC Username KELLEN HERNANDEZ Invalid Interpretation Code [facility] POC Subsection CHEMISTRYOrdered By: SYSTEM SYSTEM on 12-19-2022 Anion gap [Moles/Vol] 11 mmol/L Normal 6 - 16 mEq/L FT Remisol Calcium [Mass/Vol] 8.5 mg/dL Low 8.9 - 11. 1 mg/dL [facility] Remisol Chloride [Moles/Vol] 103 mmol/L Normal 101 - 1 11 mmol/L [facility] Remisol CO2 [Moles/Vol] 28 mmol/L Normal 21 - 31 mmol/L [facility] Remisol Creatinine [Mass/Vol] 1.2 mg/dL Normal 0.5 - 1.3 mg/dL [facility] Remisol GFR/1.73 sq M.predicted among non-blacks MDRD (S/P/Bld) [Vol rate/Area] 62 mL/min/1.73 m2 Normal >=59mL/min/ 1.73 m2 [facility] Chem S Glucose [Mass/Vol] 86 mg/dL Normal 55 - 199 mg/dL [facility] Remisol Potassium [Moles/Vol] 4.5 mmol/L Normal 3.5 - 5.3 mmol/L [facility] Remisol Sodium [Moles/Vol] 137 mmol/L Normal 135 - 145 mmol/L [facility] Remisol Urea nitrogen [Mass/Vol] 35 mg/dL High 5 - 21 mg/dL [facility] Remisol Urea nitrogen/Creatinine [Mass ratio] 29 mg/mg High 10 - 20 [facility] Remisol Capillary Glucose POCon 11-22 Glucose [Mass/Vol] 210 mg/dL High 55-99 [facility] Comment on above: Result Comment: Gareth GARDINER Performed By: #### 2 [id number] ####[facility] [address] [place] [address] Glucose [Mass/Vol] 111 mg/dL High 55-99 [facility] Comment on above: Result Comment: Gareth GARDINER Performed By: #### 2 92455181 ####[facility] [address] [place] [address] Glucose [Mass/Vol] 201 mg/dL High 55-99 [facility] Comment on above: Result Comment: Gareth GARDINER Performed By: #### 2 46129413 ####[facility] [address] [place] [address] Glucose [Mass/Vol] 93 mg/dL Normal 55-99 [facility] Comment on above: Result Comment: Gareth GARDINER Performed By: #### 2 56500503 ####[facility] [address] [place] [address] HEMATOLOGYOrdered By: Vortal SYSTEM on 12-19-2022 Basophils/100 WBC (Bld) 0.4 [...] 84.8 fL Normal 80.0 - 100.0 fL [facility] HemeAutoSS Platelet mean volume (Bld) [Entitic vol] 9.5 fL Normal 6.4 - 10.8 fL [facility] HemeAutoSS Platelets (Bld) [#/Vol] 230.0 E9/L Normal 150. 0 - 500.0 E9/L [facility] HemeAutoSS RBC (Bld) [#/Vol] 4.5 E12/L Normal 4.3 - 5.9 E12/L [facility] HemeAutoSS WBC corrected for nucl RBC Auto (Bld) [#/Vol] 13.1 E9/L High 4.0 - 11.0 E9/L [facility] HemeAutoSS Monitor Recordon 12-19-2022 Monitor Record [id number]# 1.00CD:127 Normal [facility] Monitor Record [id number]# 1.00CD:127 Normal [facility] Progress Note-Physicianon Progress Note-Physician Normal [facility] Comment on above: Result Comment: Elec tronically Signed By: MICHAEL POTTS, Jamir\.br\Date and Time Signed: 12/19/22 09:47 EDT eGFRon 12-19-2022 GFR/1.73 sq M.predicted among non-blacks MDRD (S/P/Bld) [Vol rate/Area] 62 mL/min/1.73 m2 Normal >=59 [facility] Comment on above: Order Comment: Order added by Discern Expert. Result Comment: Bilingual Office Assistant earnest kidney disease could be indicated at eGFR's of less than 60 mL/min/1.73m2. Kidney failure is indicated at less than 15 mL/min/1.73m2. Performed By: #### 1 4783350, 9316096, 6945558, 9092327 ####[facility] [address] [place] [address] Auto Diffon 12-18-2022 Basophils/100 WBC (Bld) 0.4 % Normal 0.0-2.0 [facility] Comment on above: Order Comment: Order Added by Discern Expert. Performed By: #### 2 265421, 6285020 ####[facility] [address] [place] [address] Basophils/Leukocytes Auto (Bld) [Pure # fraction] 0.1 E9/L Normal 0.0-0.2 [facility] Comment on above: Order Comment: Order Added by Discern Expert. Performed By: #### 2 479815, 6820234 ####[address] [address] Eosinophils/100 WBC (Bld) 2.8 % Normal 0.0-8.0 [facility] Comment on above: Order Comment: Order Added by Discern Expert. Performed By: #### 2 608281, 3124317 ####[address] [address] Eosinophils/Leukocytes Auto (Bld) [Pure # fraction] 0.4 E9/L Normal 0.0-0.5 [facility] Comment on above: Order Comment: Order Added by Discern Expert. Performed By: #### 2 837766, 4822666 ####[address] [address] Lymphocytes/100 WBC (Bld) 9.0 % Low 14.0-50.0 [facility] Comment on above: Order Comment: Order Added by Bethany Expert. Performed By: #### 2 265240, 0348825 ####[address] [address] Lymphocytes/Leukocytes Auto (Bld) [Pure # fraction] 1.3 E9/L Normal 1.0-4.0 [facility] Comment on above: Order Comment: Order Added by Discern Expert. Performed By: #### 2 705015, 2639158 ####[address] [address] Monocytes/100 WBC (Bld) 8.3 % Normal 4.0-14.[address] [facility] Comment on above: Order Comment: Order Added by Discern Expert. Performed By: #### 2 142018, 5980784 ####[address] [place] [address] Monocytes/Leukocytes Auto (Bld) [Pure # fraction] 1.3 E9/L High 0.2-1.0 [facility] Comment on above: Order Comment: Order Added by Discern Expert. Performed By: #### 2 797939, 1668647 ####[address] [place] [address] Neutrophils/100 WBC (Bld) 79.5 % High 36.0-75.0 [facility] Comment on above: Order Comment: Order Added by Discern Expert. Performed By: #### 2 655650, 5655748 ####[address] [address] Neutrophils/Leukocytes Auto (Bld) [Pure # fraction] 11.9 E9/L High 2.0-7.5 [facility] Comment on above: Order Comment: Order Added by Discern Expert. Performed By: #### 2 621838, 2154141 ####[address] [address] Basophils/100 WBC (Bld) 0.6 % Normal 0.0-2.[address] [facility] Comment on above: Order Comment: Order Added by Discern Expert. Performed By: #### 1 7155388, 4370738, 64634278, 4656870, 21346586, 42423484, 2972135 ####[address] [place] [address] Basophils/Leukocytes Auto (Bld) [Pure # fraction] 0.1 E9/L Normal 0.0-0.2 [facility] Comment on above: Order Comment: Order Added by Discern Expert. Performed By: #### 1 2880980, 8528120, 08204434, 8127896, 65446315, 42388988, 1795357 ####[address] [place] [address] Eosinophils/100 WBC (Bld) 2.0 % Normal 0.0-8.0 [facility] Comment on above: Order Comment: Order Added by Discern Expert. Performed By: #### 1 0232902, 5667600, 86642136, 8619939, 46356827, 19754839, 3989113 ####[address] [place] [address] Eosinophils/Leukocytes Auto (Bld) [Pure # fraction] 0.3 E9/L Normal 0.0-0.5 [facility] Comment on above: Order Comment: Order Added by Discern Expert. Performed By: #### 1 7335219, 5021726, 29934241, 5064887, 96573306, 87077940, 8447629 ####[address] [place] [address] Lymphocytes/100 WBC (Bld) 7.6 % Low 14.0-50.0 [facility] Comment on above: Order Comment: Order Added by Bethany Expert. Performed By: #### 1 9785045, 9104878, 45699489, 6869218, 42185791, 90787356, 8165431 ####[address] [address] Lymphocytes/Leukocytes Auto (Bld) [Pure # fraction] 1.3 E9/L Normal 1.0-4.0 [facility] Comment on above: Order Comment: Order Added by Bethany Expert. Performed By: #### 1 6238465, 3035890, 40637699, 1106945, 61870380, 57603603, 8854680 ####[address] [place] [address] Monocytes/100 WBC (Bld) 7.8 % Normal 4.0-14.[address] [facility] Comment on above: Order Comment: Order Added by Bethany Expert. Performed By: #### 1 8162025, 8563220, 86326117, 5914297, 26735672, 40370739, 2354887 ####[address] [place] [address] Monocytes/Leukocytes Auto (Bld) [Pure # fraction] 1.3 E9/L High 0.2-1.0 [facility] Comment on above: Order Comment: Order Added by Discern Expert. Performed By: #### 1 6753982, 6599966, 24574495, 9691523, 86676740, 36882132, 9139225 ####[facility] [address] [place] [address] Neutrophils/100 WBC (Bld) 82.0 % High 36.0-75.0 [facility] Comment on above: Order Comment: Order Added by Discern Expert. Performed By: #### 1 8261018, 1645797, 01893098, 5845667, 05432783, 37215282, 2440469 ####[facility] [address] [place] [address] Neutrophils/Leukocytes Auto (Bld) [Pure # fraction] 13.7 E9/L High 2.0-7.5 [facility] Comment on above: Order Comment: Order Added by Bethany Expert. Performed By: #### 1 6314539, 8805442, 16884581, 9323383, 48767199, 60970415, 5308822 ####[facility] [address] [place] [address] BMPon 12-18-2022 Creatinine [Mass/Vol] 1.6 mg/dL High 0.5-1.3 [facility] Comment on above: Performed By: #### 2 422344, 0856763, 9422067937, 63422461, 73229107 ####[facility] [address] [place] [address] Urea nitrogen [Mass/Vol] 47 mg/dL High 5-21 [facility] Comment on above: Performed By: #### 2 333919, 1105680, 7522199001, 69097595, 62730896 ####[facility] [address] [place] [address] Urea nitrogen/Creatinine [Mass ratio] 29 No Units High 10-20 [facility] Comment on above: Performed By: #### 2 194759, 2709828, 1649275740, 63302189, 36397017 ####[facility] [address] [place] [address] Anion gap [Moles/Vol] 12 mmol/L Normal 6-16 [facility] Comment on above: Performed By: #### 2 757777, 1799365, 7448534120, 63401806, 42158817 ####[facility] [address] [place] [address] Calcium [Mass/Vol] 8.7 mg/dL Low 8.9-11.1 [facility] Comment on above: Performed By: #### 2 417440, 6235989, 9680356165, 81806140, 96060299 ####[facility] [address] [place] [address] Chloride [Moles/Vol] 97 mmol/L Low 101-111 [facility] Comment on above: Performed By: #### 2 401198, 0983588, 6258922777, 70407715, 82894197 ####[facility] [address] [place] [address] CO2 [Moles/Vol] 32 mmol/L High 21-31 [facility] Comment on above: Performed By: #### 2 045036, 8266827, 7294069262, 10889808, 38250304 ####[facility] [address] [address] Glucose [Mass/Vol] 131 mg/dL Normal 55-199 [facility] Comment on above: Result Comment: If t his glucose result represents a fasting glucose, interpretation should refer to the following reference range: 55-99 mg/dL Performed By: #### 2 611871, 0690673, [id number], 91531027, 60479764 ####[facility] [address] [place] [address] Potassium [Moles/Vol] 3.7 mmol/L Normal 3.5-5.3 [facility] Comment on above: Performed By: #### 2 374457, 8252145, [id number], 28398333, 25824242 ####[facility] [address] [place] [address] Sodium [Moles/Vol] 137 mmol/L Normal 135-145 [facility] Comment on above: Performed By: #### 2 073987, 4563056, [id number], 00908902, 08022792 ####[facility] [address] [place] [address] Creatinine [Mass/Vol] 1.8 mg/dL High 0.5-1.3 [facility] Comment on above: Performed By: #### 1 6319717, 4190156, 76230511, 6961256, 54874758, 22945857, 0623962 ####[facility] [address] [place] [address] Urea nitrogen [Mass/Vol] 49 mg/dL High 5-21 [facility] Comment on above: Performed By: #### 1 4507245, 0347708, 78831968, 9069651, 20103980, 64736073, 2287622 ####[facility] [address] [place] [address] Urea nitrogen/Creatinine [Mass ratio] 27 No Units High 10-20 [facility] Comment on above: Performed By: #### 1 3132697, 2344783, 30509146, 8385988, 46604889, 72631297, 9773280 ####[facility] [address] [place] [address] Anion gap [Moles/Vol] 18 mmol/L High 6-16 [facility] Comment on above: Performed By: #### 1 8078320, 0183173, 56016961, 9448965, 98856114, 41299965, 7061550 ####[facility] [address] [place] [address] Calcium [Mass/Vol] 9.3 mg/dL Normal 8.9-11.1 [facility] Comment on above: Performed By: #### 1 6092146, 8176934, 57442559, 9711734, 92737594, 69403812, 5761414 ####[facility] [address] [place] [address] Chloride [Moles/Vol] 93 mmol/L Low 101-111 [facility] Comment on above: Performed By: #### 1 2526832, 9753617, 77678422, 9453807, 24610043, 52217732, 1389559 ####[facility] [address] [place] [address] CO2 [Moles/Vol] 29 mmol/L Normal 21-31 [facility] Comment on above: Performed By: #### 1 2801916, 4344425, 38427054, 5700163, 84779063, 85549735, 4796791 ####[facility] [address] [place] [address] Glucose [Mass/Vol] 137 mg/dL Normal 55-199 [facility] Comment on above: Result Comment: If t his glucose result represents a fasting glucose, interpretation should refer to the following reference range: 55-99 mg/dL Performed By: #### 1 8501523, 6826691, 84408988, 5301926, 63360621, 01093927, 3618282 ####[facility] [address] [place] [address] Potassium [Moles/Vol] 4.0 mmol/L Normal 3.5-5.3 [facility] Comment on above: Performed By: #### 1 8609322, 5399009, 85088162, 4924927, 74616893, 02432462, 6800093 ####[facility] [address] [place] [address] Sodium [Moles/Vol] 136 mmol/L Normal 135-145 [facility] Comment on above: Performed By: #### 1 0236428, 8618061, 52800024, 7048363, 16183535, 02101585, 4907630 ####[facility] [address] [place] [address] BNPon 12-18-2022 Int Ctr BNP Pass Normal [facility] Comment on above: Performed By: #### 1 3189028, 9470631, 13948924, 9842199, 45965352, 69790432, 5574671 ####[facility] [address] [place] [address] Natriuretic peptide B (Bld) [Mass/Vol] 219 pg/mL High 5-80 [facility] Comment on above: Performed By: #### 1 3011150, 5928316, 73346638, 4398257, 23617770, 65465697, 6659197 ####[facility] [address] [place] [address] CBC w/ Auto Diffon Erythrocyte distribution width (RBC) [Ratio] 14.8 % High 10.9-14.2 [facility] Comment on above: Performed By: #### 2 491007, 6266452 ####[place] [address] Hematocrit (Bld) [Volume fraction] 37.8 % Normal 37.7-49.0 [facility] Comment on above: Performed By: #### 2 135757, 9424568 ####[address] [address] Hemoglobin (Bld) [Mass/Vol] 12.7 g/dL Low 13.5-17.5 [facility] Comment on above: Performed By: #### 2 681802, 2902899 ####[place] [address] [place] [address] MCH (RBC) [Entitic mass] 28.3 pg Normal 27.0-34.0 [facility] Comment on above: Performed By: #### 2 714633, 8633186 ####[place] [address] [place] [address] MCHC (RBC) [Mass/Vol] 33.6 g/dL Normal 31.4-36.0 [facility] Comment on above: Performed By: #### 2 544889, 7363944 ####[facility] [address] [place] [address] MCV (RBC) [Entitic vol] 84.2 fL Normal 80.0-100.0 [facility] Comment on above: Performed By: #### 2 122767, 1479317 ####[address] [address] Platelet mean volume (Bld) [Entitic vol] 9.2 fL Normal 6.4-10.8 [facility] Comment on above: Performed By: #### 2 536241, 8113047 ####[address] [address] Platelets (Bld) [#/Vol] 219.0 E9/L Normal 150.0-500.0 [facility] Comment on above: Performed By: #### 2 411898, 2282530 ####[address] [address] RBC (Bld) [#/Vol] 4.5 E12/L Normal 4.3-5.9 [facility] Comment on above: Performed By: #### 2 358524, 9054025 ####[address] [address] WBC corrected for nucl RBC Auto (Bld) [#/Vol] 15.0 E9/L High 4.0-11.0 [facility] Comment on above: Performed By: #### 2 615000, 5453063 ####[address] [address] Erythrocyte distribution width (RBC) [Ratio] 14.9 % High 10.9-14.2 [facility] Comment on above: Performed By: #### 1 9268904, 7624275, 53921814, 9917426, 54182493, 02308695, 4030399 ####[place] [address] [place] [address] Hematocrit (Bld) [Volume fraction] 42.8 % Normal 37.7-49.0 [facility] Comment on above: Performed By: #### 1 0799968, 9812251, 32169810, 0106454, 85802999, 82035361, 1611952 ####[facility] [address] [place] [address] Hemoglobin (Bld) [Mass/Vol] 14.3 g/dL Normal 13.5-17.5 [facility] Comment on above: Performed By: #### 1 0686181, 3298775, 22249926, 3055011, 83790356, 96076493, 4613299 ####[facility] [address] [place] [address] MCH (RBC) [Entitic mass] 28.1 pg Normal 27.0-34.0 [facility] Comment on above: Performed By: #### 1 6367105, 8323686, 75873469, 0219325, 59560695, 42894476, 3271414 ####[facility] [address] [place], [place] [address] MCHC (RBC) [Mass/Vol] 33.3 g/dL Normal 31.4-36.0 [facility] Comment on above: Performed By: #### 1 1133159, 3358421, 45585062, 4020609, 30146314, 22374273, 5808435 ####[facility] [address] [place] [address] MCV (RBC) [Entitic vol] 84.3 fL Normal 80.0-100.0 [facility] Comment on above: Performed By: #### 1 1112880, 0564414, 34178165, 5891190, 56398135, 86312576, 0852720 ####[place] [address] [place] [address] Platelet mean volume (Bld) [Entitic vol] 9.8 fL Normal 6.4-10.8 [facility] Comment on above: Performed By: #### 1 3710669, 8706251, 71845455, 1448682, 02501577, 52476184, 2375420 ####[facility] [address] [place] [address] Platelets (Bld) [#/Vol] 234.0 E9/L Normal 150.0-500.0 [facility] Comment on above: Performed By: #### 1 9111078, 7401658, 94930992, 8621021, 00714140, 63389779, 6860836 ####[facility] [address] [place] [address] RBC (Bld) [#/Vol] 5.1 E12/L Normal 4.3-5.9 [facility] Comment on above: Performed By: #### 1 2297139, 2865975, 53061614, 4583399, 21110736, 68741854, 8586575 ####[facility] [address] [place] [address] WBC corrected for nucl RBC Auto (Bld) [#/Vol] 16.7 E9/L High 4.0-11.0 [facility] Comment on above: Result Comment: Slid e reviewed by JENNIFER. Performed By: #### 1 9723278, 1741893, 00018290, 8131610, 78522033, 25897872, 5227282 ####[facility] [address] [place] [address] CHEMISTRYOrdered By: SYSTEM SYSTEM on 12-18-2022 Troponin [...] 1.6 mg/dL High 0.5 - 1.3 mg/dL [facility] Remisol GFR/1.73 sq M.predicted among non-blacks MDRD (S/P/Bld) [Vol rate/Area] 44 mL/min/1.73 m2 Low >=59mL/min/ 1.73 m2 [facility] Chem S Glucose [Mass/Vol] 131 mg/dL Normal 55 - 199 mg/dL [facility] Potassium [Moles/Vol] 3.7 mmol/L Normal 3.5 - 5.3 mmol/L [facility] Procalcitonin 0.09 ng/mL Normal 0.00 - 0.50 ng/mL [facility] Remisol Sodium [Moles/Vol] 137 mmol/L Normal 135 - 145 mmol/L [facility] Remisol Troponin I.cardiac [Mass/Vol] 22.50 pg/mL Normal 15.90 - 38.40 pg/mL [facility] Remisol Urea nitrogen [Mass/Vol] 47 mg/dL High 5 - 21 mg/dL [facility] Remisol Urea nitrogen/Creatinine [Mass ratio] 29 mg/mg High 10 - 20 [facility] Remisol CHEMISTRYOrdered By: Yanet Apodaca on 12-18-2022 Troponin I.cardiac [Mass/Vol] 18.80 pg/mL Normal 15.90 - 38.40 pg/mL [facility] Remisol Natriuretic peptide B (Bld) [Mass/Vol] 219 pg/mL High 5 - 80 pg/mL [facility] HemeManSS CKon 12-18-2022 CK [Catalytic activity/Vol] 55 Int._Unit/L Normal 14-261 [facility] Comment on above: Performed By: #### 2 218552, 7566169, 8045674050, 72167430, 95290081 ####[facility] [address] [place] [address] COAGULATIONOrdered By: Rachael Apodaca on 12-18-2022 aPTT Coag (PPP) [Time] 30.6 s Normal 25.1 - 36.5 second(s) [facility] Auto Coag INR Coag (PPP) [Relative time] 1.1 {INR} Invalid Interpretation Code [facility] Auto Coag PT Coag (PPP) [Time] 12.5 s Normal 9.4 - 1 2.5 second(s) [facility] Auto Coag CT Head or Brain w/o Contras ton 12-18-2022 CT Head or Brain w/o Contrast Normal [facility] CT Spine Cervical w/o Contra ston 12-18-2022 CT Spine Cervical w/o Contrast Normal [facility] Capillary Glucose POCon 11-22 Glucose [Mass/Vol] 212 mg/dL High 55-99 [facility] Comment on above: Result Comment: Gareth GARDINER Performed By: #### 2 [id number] ####[facility] [address] [place] [address] Glucose [Mass/Vol] 97 mg/dL Normal 55-99 [facility] Comment on above: Result Comment: Yazmin bri Meter Performed By: #### 2 93308998 ####[facility] [address] [place] [address] Glucose [Mass/Vol] 119 mg/dL High 55-99 [facility] Comment on above: Result Comment: Gareth GARDINER Performed By: #### 2 91856334 ####[facility] [address] [place] [address] Glucose [Mass/Vol] 131 mg/dL High 55-99 [facility] Comment on above: Result Comment: Gareth GARDINER Performed By: #### 2 11461785 ####[facility] [address] [place] [address] Consent for Treatmenton 11-22 Consent for Treatment [id number]# 1.00CD:127 Normal [facility] ED Clinical Summaryon 2022 ED Clinical Summary Normal [facility] ED Note-Physicianon 12-19-19 ED Note-Physician Normal [facility] Comment on above: Result Comment: Elec tronically Signed By: Guilherme POTTS, Malcom\.br\Date and Time Signed: 12/18/22 04:33 EDT ED Patient Education Noteon 07-28-2023 ED Patient Education Note Normal [facility] ED Patient Summaryon 023 ED Patient Summary Normal [facility] ED Traumaon 12-18-2022 ED Trauma [id number]# 1.00CD:127 Normal [facility] HEMATOLOGYOrdered By: SYSTEM SYSTEM on 12-18-2022 [...] 33.6 g/dL Normal 31.4 - 36.0 gm/dL [facility] HemeAutoSS MCV (RBC) [Entitic vol] 84.2 fL Normal 80.0 - 100.0 fL [facility] HemeAutoSS Platelet mean volume (Bld) [Entitic vol] 9.2 fL Normal 6.4 - 10.8 fL [facility] HemeAutoSS Platelets (Bld) [#/Vol] 219.0 E9/L Normal 150. 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 informed staff in [facility] to send current medication list in fax.3N Normal [facility] Interdisciplinary Note - PTo n 12-18-2022 Interdisciplinary Note - PT Normal [facility] Laboratory - Microbiology an d Antimicrobial susceptibilityOrdered By: Karen Vergara on 12-18-2022 Bacteria identified Cx Nom (U) 10,000 cfu/ml Staphylococcus species Continuing incubation [facility] Monitor Recordon 12-18-2022 Monitor Record [id number]# 1.00CD:127 Normal [facility] No Panel InformationOrdered By: Karen Vergara on 12-18-2022 Blood Culture Charcoal Streptococcus spe cies Staphylococcus species coagulase negative In 1 of 2 blood culture bottles drawn. Isolated from aerobic bottle Preliminary gram stain results of gram positive cocci in clusters Result called to Dr. Mckinney by and results read back for confirmation on 12/19/2022 09:39:39 [facility] No Panel InformationOrdered By: ANGPROCESSSERVER MICROBIOLOGY on 12-18-2022 Blood Culture Charcoal No growth at 2 da ys. Final to follow at 7 days. [facility] PT & PTTon 12-18-2022 aPTT Coag (PPP) [Time] 30.6 second(s) Normal 25.1-36.5 [facility] Comment on above: Result Comment: Para [...] the same coagulation reagent and instrumentation as [facility]. Currently there are no coagulation studies available worldwide for children to 14 days, and no normal ranges. Heparin therapeutic range (represented by Anti-Factor Xa activity of 0.2 - 0.4 U/mL) corresponds to PTT of 56.6 - 109.0 sec. Performed By: #### 1 2614868, 1711708, 08406621, 0284057, 35680465, 61470561, 0064615 ####[facility] [address] [place] [address] INR Coag (PPP) [Relative time] 1.1 {INR} Invalid Interpretation Code [facility] Comment on above: Result Comment: INR results are specifically intended to assess patients stabilized on long-term Anticoagulation therapy suggested INR?s ?Less Intensive Anticoagulation? 2.0 ? 3.0Conventional Range 3.0 ? 4.5 Performed By: #### 1 3341711, 7463502, 06549228, 3357287, 95702866, 55047440, 5796207 ####[facility] [address] [place] [address] PT Coag (PPP) [Time] 12.5 second(s) Normal 9.4-12.5 [facility] Comment on above: Result Comment: 15 [...] the same coagulation reagent and instrumentation as [facility]. Currently there are no coagulation studies available worldwide for children to 14 days, and no normal ranges. Performed By: #### 1 4673338, 0841240, 44910087, 0511157, 97766533, 41776361, 1111061 ####[facility] [address] [place] [address] Procalcitoninon 12-18-2022 Procalcitonin .09 ng/mL Normal .00-.50 [facility] Comment on above: Result Comment: <0.5 [...] to 24 hours. Performed By: #### 2 760596, 8985171, 2568861070, 92484252, 99845276 ####[facility] [address] [place] [address] RAD - Preliminary Cat Scan R eporton 12-18-2022 RAD - Preliminary Cat Scan Report [id number]# 1.00CD:127 Normal [facility] Troponin 0 Hr.on 12-18-2022 Troponin I.cardiac [Mass/Vol] 23.50 pg/mL Normal 15.90-38.40 [facility] Comment on above: Result Comment: The 95% CI (Confidence Interval) PPV (Positive Predictive Value) for myocardial infarction in females is 38 pg/mL, in males 51 pg/mL. The results should be used in conjunction with clinical conditions of myocardial infarction.(SurDoc High Sensitivity Troponin I Instructions For Use, [employer], December 2017) Performed By: #### 1 7979848, 8116406, 33343076, 7966752, 57563830, 11308567, 5267601 ####[facility] [address] [place] [address] Troponin 3 Hr.on 12-18-2022 Troponin I.cardiac [Mass/Vol] 18.80 pg/mL Normal 15.90-38.40 [facility] Comment on above: Result Comment: The 95% CI (Confidence Interval) PPV (Positive Predictive Value) for myocardial infarction in females is 38 pg/mL, in males 51 pg/mL. The results should be used in conjunction with clinical conditions of myocardial infarction.(SurDoc High Sensitivity Troponin I Instructions For Use, [employer], December 2017) Performed By: #### 1 3102026 ####[place] [address] [place] [address] Troponin 6 Hr.on 12-18-2022 Troponin I.cardiac [Mass/Vol] 22.50 pg/mL Normal 15.90-38.40 [facility] Comment on above: Result Comment: The 95% CI (Confidence Interval) PPV (Positive Predictive Value) for myocardial infarction in females is 38 pg/mL, in males 51 pg/mL. The results should be used in conjunction with clinical conditions of myocardial infarction.(SurDoc High Sensitivity Troponin I Instructions For Use, [employer], December 2017) Performed By: #### 2 287460, 8671686, 9543507581, 75138139, 23222374 ####[facility] [address] [place] [address] Troponin 9 Hr.on 12-18-2022 Troponin I.cardiac [Mass/Vol] 18.90 pg/mL Normal 15.90-38.40 [facility] Comment on above: Result Comment: The 95% CI (Confidence Interval) PPV (Positive Predictive Value) for myocardial infarction in females is 38 pg/mL, in males 51 pg/mL. The results should be used in conjunction with clinical conditions of myocardial infarction.(Access High Sensitivity Troponin I Instructions For Use, [employer], December 2017) Performed By: #### 1 2942439 ####[place] [address] UA With Cult Reflexon 2022 Bacteria LM Ql (Urine sed) TRACE Normal Trace [facility] Comment on above: Performed By: #### 1 4993119, 6935077 ####[address] [address] Bilirubin Ql (U) Negative Normal Negative [facility] Comment on above: Performed By: #### 1 3259928, 9787832 ####[address] [address] Clarity (U) CLEAR Normal Clear [facility] Comment on above: Performed By: #### 1 4428823, 5407715 ####[address] [address] Color (U) YELLOW Normal Yellow [facility] Comment on above: Performed By: #### 1 4196404, 8894849 ####[address] [address] Epithelial cells.squamous LM.HPF (Urine sed) [#/Area] 0-2 Normal 0-2 [facility] Comment on above: Performed By: #### 1 5489998, 2874147 ####[address] [address] Glucose Test strip (U) [Mass/Vol] Negative Normal Negative [facility] Comment on above: Performed By: #### 1 8827876, 4233031 ####[address] [address] Hemoglobin Ql (U) TRACE Abnormal Negative [facility] Comment on above: Performed By: #### 1 0911752, 0757035 ####[address] [address] Ketones (U) [Mass/Vol] Negative Normal Negative [facility] Comment on above: Performed By: #### 1 7413314, 9920174 ####[address] [address] [place].plasma/[place].R BC (Bld) [Mass ratio] 0-3 Normal 0-3 [facility] Comment on above: Performed By: #### 1 1759922, 8634689 ####[address] [address] Nitrite Ql (U) Negative Normal Negative [facility] Comment on above: Performed By: #### 1 9770440, 2093168 ####[address] [address] pH (U) 6.5 [pH] Invalid Interpretation Code 5.0-9.0 [facility] Comment on above: Performed By: #### 1 6559015, 0846399 ####[address] [address] Protein (U) [Mass/Vol] Negative Normal Negative [facility] Comment on above: Performed By: #### 1 9795622, 1273773 ####[address] [address] Specific gravity (U) [Rel density] 1.020 Invalid Interpretation Code 1.005-1.030 [facility] Comment on above: Performed By: #### 1 6419684, 5692506 ####[address] [address] Type of Urine collection method Clean Catch Normal [facility] Comment on above: Performed By: #### 1 8017015, 8979954 ####[facility] [address] [place] 1550457 Urobilinogen Qn (U) 0.2 {Lei'U}/dL Normal 0.0-1.0 [facility] Comment on above: Performed By: #### 1 4185889, 8233501 ####[facility] [address] [place] [address] WBC Auto Ql (U) 3+ Abnormal Negative [facility] Comment on above: Performed By: #### 1 8584577, 2690466 ####[facility] [address] [place] [address] WBC LM.HPF (Urine sed) [#/Area] /[HPF] Abnormal 0-5 [facility] Comment on above: Performed By: #### 1 2694131, 3200823 ####[facility] [address] [place], [place] [address] URINALYSISOrdered By: Houston Castillo on 12-18-2022 Bacteria LM Ql (Urine sed) Trace /HPF Normal Trace/HPF [facility] UA Auto SS Bilirubin Ql (U) Negative (12/18/22 4:45 PM) Normal Negative [facility] UA Auto SS Clarity (U) Clear (12/18/22 4:45 PM) Normal Clear [facility] UA Auto SS Color (U) Yellow (12/18/22 [...] PM) Normal Negative [facility] UA Auto SS [place].plasma/[place].R BC (Bld) [Mass ratio] 0-3 /HPF Normal [...] Desc Clean Catch (12/18/22 4:45 PM) Normal [facility] UA Auto SS Urobilinogen Qn (U) 0.8763000 {Lei'U}/dL Normal 0.0 - 1.0 EU/dL [facility] UA Auto SS WBC Auto Ql (U) 3+ *ABN* (12/18/22 4:45 PM) Invalid Interpretation Code Negative [facility] UA Auto SS WBC LM.HPF (Urine sed) [#/Area] /[HPF] Invalid Interpretation Code 0-5/HPF [facility] UA Auto SS XR Chest Single Viewon 12-18 XR Chest Single View Normal [facility] XR Pelvis 1 or 2 Viewson XR Pelvis 1 or 2 Views Normal Fi [facility] eGFRon 12-18-2022 GFR/1.73 sq M.predicted among non-blacks MDRD (S/P/Bld) [Vol rate/Area] 44 mL/min/1.73 m2 Low >=59 [facility] Comment on above: Order Comment: Order added by Discern Expert. Result Comment: Bilingual Office Assistant earnest kidney disease could be indicated at eGFR's of less than 60 mL/min/1.73m2. Kidney failure is indicated at less than 15 mL/min/1.73m2. Performed By: #### 2 942412, 9773547, [id number], 59262531, 44238863 ####[facility] [address] [place] [address] GFR/1.73 sq M.predicted among non-blacks MDRD (S/P/Bld) [Vol rate/Area] 38 mL/min/1.73 m2 Low >=59 [facility] Comment on above: Order Comment: Order added by Discern Expert. Result Comment: Bilingual Office Assistant earnest kidney disease could be indicated at eGFR's of less than 60 mL/min/1.73m2. Kidney failure is indicated at less than 15 mL/min/1.73m2. Performed By: #### 1 [id number], 3815382, 74430807, 6666475, 74658331, 66992223, 1692993 ####[facility] [address]Nor[address] [place] [address] Capillary Glucose POCon 11-22 Glucose [Mass/Vol] 165 mg/dL High [address] [place] [address] Comment on above: Result Comment: Yazmin bri Meter Performed By: #### 2 [id number] ####[facility] [address] AveNorclif[address] [place] [address] Glucose [Mass/Vol] 184 mg/dL [address] Comment on above: Performed By: #### 2 [id number] ####[facility] [address]Norcl[address] [place] [address] Capillary Glucose POCon 11-22 Glucose [Mass/Vol] 184 mg/dL [address] Comment on above: Result Comment: Yazmin bri Meter Performed By: #### 2 [id number] ####[facility] [address]Norcl[address] [place] [address] Glucose [Mass/Vol] 141 mg/dL High [address] [place] [address] Comment on above: Result Comment: Yazmin bri Meter Performed By: #### 2 [id number] ####[facility] [address] [place] [address] Capillary Glucose POCon 11-22 Glucose [Mass/Vol] 183 mg/dL [address] Comment on above: Result Comment: Yazmin bri Meter Performed By: #### 2 [id number] ####[facility] [address] AveNorclif[address] [place] [address] Glucose [Mass/Vol] 147 mg/dL High 55-99 [facility] Comment on above: Result Comment: Yazmin bri Meter Performed By: #### 2 [id number] ####[facility] [address] [place] [address] Capillary Glucose POCon 07- Glucose [Mass/Vol] 188 mg/dL High 55-99 [facility] Comment on above: Result Comment: Yazmin bri Meter Performed By: #### 2 [id number] ####[facility] [address] [place] [address] Glucose [Mass/Vol] 162 mg/dL High 55- [facility] Comment on above: Result Comment: Yazmin bri Meter Performed By: #### 2 [id number] ####[facility] [address] [place] [address] Auto Diffon 12-13-2022 Basophils/100 WBC (Bld) 0.0 % Normal 0.0-2.[address] [facility] Comment on above: Order Comment: Order Added by Discern Expert. Performed By: #### 1 2519534, 6152968, 292868747, 7617935, 6073323 ####[address] [address] Basophils/Leukocytes Auto (Bld) [Pure # fraction] 0.0 E9/L Normal 0.0-0.2 [facility] Comment on above: Order Comment: Order Added by Discern Expert. Performed By: #### 1 5141505, 4321688, 834514970, 3823996, 1824839 ####[facility] [address] [place] [address] Eosinophils/100 WBC (Bld) 7.6 % Normal 0.0-8.0 [facility] Comment on above: Order Comment: Order Added by Discern Expert. Performed By: #### 1 1075706, 3117738, 735784435, 2218759, 8921847 ####[address] [address] Eosinophils/Leukocytes Auto (Bld) [Pure # fraction] 1.0 E9/L High 0.0-0.5 [facility] Comment on above: Order Comment: Order Added by Discern Expert. Performed By: #### 1 1228202, 7320612, 080629339, 3324568, 2187968 ####[address] [place] [address] Lymphocytes/100 WBC (Bld) 10.3 % Low 14.0-50.0 [facility] Comment on above: Order Comment: Order Added by Discern Expert. Performed By: #### 1 4928031, 4644202, 622212891, 4317741, 0810354 ####[address] [place] [address] Lymphocytes/Leukocytes Auto (Bld) [Pure # fraction] 1.3 E9/L Normal 1.0-4.0 [facility] Comment on above: Order Comment: Order Added by Discern Expert. Performed By: #### 1 9153477, 2308895, 512741812, 1570635, 1812002 ####[address] [address] Monocytes/100 WBC (Bld) 9.6 % Normal 4.0-14.[address] [facility] Comment on above: Order Comment: Order Added by Discern Expert. Performed By: #### 1 5523791, 7788766, 617811070, 9686045, 9588117 ####[address] [address] Monocytes/Leukocytes Auto (Bld) [Pure # fraction] 1.2 E9/L High 0.2-1.0 [facility] Comment on above: Order Comment: Order Added by Discern Expert. Performed By: #### 1 1250136, 0321165, 721353493, 7693123, 5257236 ####[address] [place] [address] Neutrophils/100 WBC (Bld) 72.5 % Normal 36.0-75.0 [facility] Comment on above: Order Comment: Order Added by Discern Expert. Performed By: #### 1 9017598, 4985281, 173226604, 5093596, 9189939 ####[address] [place] [address] Neutrophils/Leukocytes Auto (Bld) [Pure # fraction] 9.0 E9/L High 2.0-7.5 [facility] Comment on above: Order Comment: Order Added by Discern Expert. Performed By: #### 1 1451655, 8507973, 100583051, 6912574, 8903255 ####[address] [place] [address] CBC w/ Auto Diffon 3 Erythrocyte distribution width (RBC) [Ratio] 15.0 % High 10.9-14.2 [facility] Comment on above: Performed By: #### 1 0643371, 0233958, 053833597, 0691778, 5071028 ####[address] [place] [address] Hematocrit (Bld) [Volume fraction] 45.2 % Normal 37.7-49.0 [facility] Comment on above: Performed By: #### 1 7575354, 6594465, 556258678, 9724418, 2765827 ####[address] [place] [address] Hemoglobin (Bld) [Mass/Vol] 14.8 g/dL Normal 13.5-17.5 [facility] Comment on above: Performed By: #### 1 4400615, 5519586, 634580681, 5341373, 7482122 ####[address] [place] [address] MCH (RBC) [Entitic mass] 27.8 pg Normal 27.0-34.0 [facility] Comment on above: Performed By: #### 1 3596190, 5598201, 336171109, 0363009, 7530140 ####[address] [place] [address] MCHC (RBC) [Mass/Vol] 32.7 g/dL Normal 31.4-36.0 [facility] Comment on above: Performed By: #### 1 0883302, 7441142, 998064994, 8891807, 7972694 ####[facility] [address] [place] [address] MCV (RBC) [Entitic vol] 85.0 fL Normal 80.0-100.0 [facility] Comment on above: Performed By: #### 1 6194879, 9654342, 013744165, 1385007, 8357174 ####[facility] [address] [place] [address] Platelet mean volume (Bld) [Entitic vol] 9.4 fL Normal 6.4-10.8 [facility] Comment on above: Performed By: #### 1 8644204, 7191523, 552442419, 2596234, 0543782 ####[address] [address] Platelets (Bld) [#/Vol] 193.0 E9/L Normal 150.0-500.0 [facility] Comment on above: Performed By: #### 1 9566226, 1124413, 386922890, 5810053, 2740692 ####[address] [address] RBC (Bld) [#/Vol] 5.3 E12/L Normal 4.3-5.9 [facility] Comment on above: Performed By: #### 1 4417105, 5152790, 739367645, 1139809, 1831810 ####[facility] [address] [place] [address] WBC corrected for nucl RBC Auto (Bld) [#/Vol] 12.5 E9/L High 4.0-11.0 [facility] Comment on above: Performed By: #### 1 3280707, 4731491, 406175249, 7033592, 7598624 ####[address] [place] [address] CMPon 12-13-2022 Albumin [Mass/Vol] 3.6 g/dL Normal 3.3-5.0 [facility] Comment on above: Performed By: #### 1 7517112, 4386927, 590602654, 4336031, 0054668 ####[facility] [address] [place] [address] Albumin/Globulin (S) [Mass conc ratio] 1.0 Low 1.1-2.2 [facility] Comment on above: Performed By: #### 1 7406501, 4987696, 958916153, 7351746, 5479110 ####[facility] [address] [place] [address] ALP [Catalytic activity/Vol] 49 Int._Unit/L Normal 21-98 [facility] Comment on above: Performed By: #### 1 7148221, 2715033, 033089474, 1730886, 7160508 ####[facility] [address] [place] [address] ALT No additional P-5'-P [Catalytic activity/Vol] 21 Int._Unit/L Normal 6-46 [facility] Comment on above: Performed By: #### 1 1712619, 5787827, 920116174, 7675230, 2540072 ####[facility] [address] [place] [address] Anion gap [Moles/Vol] 16 mmol/L Normal 6-16 [facility] Comment on above: Performed By: #### 1 4726471, 1637937, 191010991, 6759900, 7344006 ####[facility] [address] [place] [address] AST [Catalytic activity/Vol] 21 Int._Unit/L Normal 5-43 [facility] Comment on above: Performed By: #### 1 5240137, 0751995, 857085881, 3035488, 7794538 ####[facility] [address] [place] [address] Bilirubin [Mass/Vol] 0.6 mg/dL Normal 0.0-1.1 [facility] Comment on above: Performed By: #### 1 6284182, 1718893, 872537949, 3152489, 6386865 ####[facility] [address] [place] [address] Calcium [Mass/Vol] 9.4 mg/dL Normal 8.9-11.1 [facility] Comment on above: Performed By: #### 1 0475507, 5236197, 965144514, 3998012, 7557018 ####[facility] [address] [place] [address] Chloride [Moles/Vol] 99 mmol/L Low 101-111 [facility] Comment on above: Performed By: #### 1 5305925, 3256751, 155680034, 0090906, 0932992 ####[facility] [address] [place] [address] CO2 [Moles/Vol] 31 mmol/L Normal 21-31 [facility] Comment on above: Performed By: #### 1 0430866, 5795993, 353647187, 5930638, 2351760 ####[facility] [address] [place] [address] Creatinine [Mass/Vol] 1.5 mg/dL High 0.5-1.3 [facility] Comment on above: Performed By: #### 1 6244884, 1707920, 277740071, 1094041, 6788699 ####[facility] [address] [place] [address] Globulin (S) [Mass/Vol] 3.7 g/dL Normal 1.4-4.0 [facility] Comment on above: Performed By: #### 1 7388243, 6862524, 925188405, 4684575, 1284822 ####[facility] [address] [place] [address] Glucose [Mass/Vol] 128 mg/dL Normal 55-199 [facility] Comment on above: Result Comment: If t his glucose result represents a fasting glucose, interpretation should refer to the following reference range: 55-99 mg/dL Performed By: #### 1 1089906, 3683492, 680308355, 2915413, 1291012 ####[facility] [address] [place] [address] Potassium [Moles/Vol] 4.1 mmol/L Normal 3.5-5.3 [facility] Comment on above: Performed By: #### 1 2222513, 8702861, 683985649, 8290111, 0861706 ####[facility] [address] [place] [address] Protein [Mass/Vol] 7.3 g/dL Normal 6.0-7.8 [facility] Comment on above: Performed By: #### 1 4150128, 5900031, 443279356, 1278526, 2496503 ####[facility] [address] [place] [address] Sodium [Moles/Vol] 142 mmol/L Normal 135-145 [facility] Comment on above: Performed By: #### 1 0148874, 2499962, 552634831, 2916886, 8768754 ####[facility] [address] [place] [address] Urea nitrogen [Mass/Vol] 57 mg/dL High 5-21 [facility] Comment on above: Performed By: #### 1 2016999, 5086743, 539599190, 5291403, 2933756 ####[facility] [address] [place] [address] Urea nitrogen/Creatinine [Mass ratio] 38 No Units High 10-20 [facility] Comment on above: Performed By: #### 1 0967278, 6233661, 613250805, 7284914, 5135359 ####[facility] [address] [place] [address] Capillary Glucose POCon 07-2 Glucose [Mass/Vol] 256 mg/dL High 55-99 [facility] Comment on above: Result Comment: Yazmin bri Meter Performed By: #### 2 35118188 ####[facility] [address] [place] [address] Glucose [Mass/Vol] 152 mg/dL High [facility] Comment on above: Result Comment: Yazmin bri Meter Performed By: #### 2 27357526 ####[facility] [address] [place] [address] XtzK9caj 12-13-2022 HbA1c (Bld) [Mass fraction] 6.5 % High <=5.9 [facility] Comment on above: Performed By: #### 1 1921524, 7351601, 897817284, 4726718, 0510232 ####[facility] [address] [place] [address] eGFRon 12-13-2022 GFR/1.73 sq M.predicted among non-blacks MDRD (S/P/Bld) [Vol rate/Area] 47 mL/min/1.73 m2 Low >=59 [facility] Comment on above: Order Comment: Order added by Discern Expert. Result Comment: Bilingual Office Assistant earnest kidney disease could be indicated at eGFR's of less than 60 mL/min/1.73m2. Kidney failure is indicated at less than 15 mL/min/1.73m2. Performed By: #### 1 3526113, 6300695, 200276256, 0670727, 9767048 ####[facility] [address] [place] [address] Capillary Glucose POCon 11-22 Glucose [Mass/Vol] 212 mg/dL High - [facility] Comment on above: Result Comment: Yazmin bri Meter Performed By: #### 2 76354539 ####[facility] [address] [place] [address] Glucose [Mass/Vol] 161 mg/dL High [facility] Comment on above: Result Comment: Yazmin bri Meter Performed By: #### 2 91887257 ####[facility] [address] [place] [address] Capillary Glucose POCon 11-22 Glucose [Mass/Vol] 206 mg/dL [address] Comment on above: Result Comment: Yazmin bri Meter Performed By: #### 2 97819464 ####[facility] [address] [place] [address] Glucose [Mass/Vol] 152 mg/dL [address] Comment on above: Result Comment: Yazmin bri Meter Performed By: #### 2 17749918 ####[facility] [address] [place] [address] Capillary Glucose POCon 11-22 Glucose [Mass/Vol] 140 mg/dL [address] Comment on above: Result Comment: Yazmin bri Meter Performed By: #### 2 62970343 ####[facility] [address] [place] [address] Capillary Glucose POCon 11-21 Glucose [Mass/Vol] 243 mg/dL [address] Comment on above: Result Comment: Yazmin bri Meter Performed By: #### 2 42776606 ####[facility] [address] [place] [address] Glucose [Mass/Vol] 157 mg/dL [address] Comment on above: Result Comment: Yazmin bri Meter Performed By: #### 2 40887740 ####[facility] [address] [place] [address] Capillary Glucose POCon 11-21 Glucose [Mass/Vol] 181 mg/dL [address] Comment on above: Result Comment: Yazmin bri Meter Performed By: #### 2 61397115 ####[facility] [address] [place] [address] Capillary Glucose POCon 11-21 Glucose [Mass/Vol] 149 mg/dL [address] Comment on above: Result Comment: Yazmin bri Meter Performed By: #### 2 95558881 ####[facility] [address] [place] [address] Glucose [Mass/Vol] 164 mg/dL High 55-99 [facility] Comment on above: Result Comment: Yazmin bri Meter Performed By: #### 2 97395134 ####[facility] [address] [place] [address] Capillary Glucose POCon 11-21 Glucose [Mass/Vol] 265 mg/dL High 55-99 [facility] Comment on above: Result Comment: Yazmin bri Meter Performed By: #### 2 67122093 ####[facility] [address] [place] [address] Glucose [Mass/Vol] 129 mg/dL High 55-99 [facility] Comment on above: Result Comment: Yazmin bri Meter Performed By: #### 2 38827012 ####[facility] [address] [place] [address] Family Medicine Office/Clini c Noteon 12-06-2022 Family Medicine Office/Clinic Note Normal [facility] Comment on above: Result Comment: Elec tronically Signed By: SHAISTA POTTS, Donta\.br\Date and Time Signed: 12/06/22 21:11 EDT Capillary Glucose POCon 11-21 Glucose [Mass/Vol] 196 mg/dL High 55-99 [facility] Comment on above: Result Comment: Yazmin bri Meter Performed By: #### 2 [id number] ####[facility] [address] [place] [address] Glucose [Mass/Vol] 159 mg/dL High 55-99 [facility] Comment on above: Result Comment: Yazmin bri Meter Performed By: #### 2 21310808 ####[facility] [address] [place] [address] Capillary Glucose POCon 11-21 Glucose [Mass/Vol] 195 mg/dL High 55-99 [facility] Comment on above: Result Comment: Gareth guerrero RN/ Performed By: #### 2 68984108 ####[facility] [address] [place] [address] Insurance Correspondence Off ice12-04-2022 Insurance Correspondence Office [id number]# 1.00CD:127 Normal [facility] Physician Orderon 12-03-2022 Physician Order [id number]# 1.00CD:127 Normal [facility] CHEMISTRYOrdered By: Lab ROP User on 12-02-2022 Glucose [Mass/Vol] 227 mg/dL High 55 - 99 mg/dL [facility] POC Subsection Comment on above: Result Comment: Gareth GARDINER POC Device SN [id number] Invalid Interpretation Code FT POC Subsection POC User ID [id number] Invalid Interpretation Code [facility] POC Subsection POC Username KINGSTON JAMISON Invalid Interpretation Code [facility] POC Subsection Glucose [Mass/Vol] 127 mg/dL High 55 - 99 mg/dL [facility] POC Subsection Comment on above: Result Comment: Gareth GARDINER POC Device SN [id number] Invalid Interpretation Code FT POC Subsection POC User ID [id number] Invalid Interpretation Code FT POC Subsection POC Username TOYIN REYNOLDS Invalid Interpretation Code [facility] POC Subsection Capillary Glucose POCon 11-21 Glucose [Mass/Vol] 227 mg/dL High 55-99 [facility] Comment on above: Result Comment: Gareth GARDINER Performed By: #### 2 [id number] ####[facility] [address] [place] [address] Glucose [Mass/Vol] 127 mg/dL High 55-99 [facility] Comment on above: Result Comment: Gareth GARDINER Performed By: #### 2 [id number] ####[facility] [address] [place] [address] Coding Queryon 12-02-2022 Coding Query Normal [facility] Discharge Note-Nursingon Discharge Note-Nursing Normal [facility] Inpatient Clinical Summaryon 12-02-2022 Inpatient Clinical Summary Normal [facility] Inpatient Patient Summaryon 12-02-2022 Inpatient Patient Summary Normal [facility] Insurance Correspondence Off ice12-02-2022 Insurance Correspondence Office [id number]#1. 00CD:127 Normal [facility] Interdisciplinary Note - Santosh e Manageron 12-02-2022 Interdisciplinary Note - Television Camera Operator [facility] Comment on above: Result Comment: Elec tronically Signed By: Dank HAYDEN, Lisa\.br\Date and Time Signed: 12/02/22 09:31 EDT Monitor Recordon 12-02-2022 Monitor Record [id number]# 1.00CD:127 Normal [facility] Physician Orderon 12-02-2022 Physician Order [id number]# 1.00CD:127 Normal [facility] Progress Note-Physicianon Progress Note-Physician [facility] Comment on above: Result Comment: Elec tronically Signed By: Adeline COLEMAN\.br\Date and Time Signed: 12/01/22 18:43 EDT\.br\Electronically Co-Signed By: Juan Hdz DO\.br\Date and Time Co-Signed: 12/02/22 07:20 EDT Transfer Documentson 023 Transfer Documents [id number]# 1.00CD:127 Normal [facility] BMPon 12-01-2022 Anion gap [Moles/Vol] 13 mmol/L Normal 6-16 [facility] Comment on above: Performed By: #### 1 5615590, 3182135, 8667866, 2445774 ####[facility] [address] [place] [address] Calcium [Mass/Vol] 9.1 mg/dL Normal 8.9-11.1 [facility] Comment on above: Performed By: #### 1 4294172, 6095704, 7815557, 6355572 ####[facility] [address] [place] [address] Chloride [Moles/Vol] 102 mmol/L Normal 101-111 [facility] Comment on above: Performed By: #### 1 1680916, 1936462, 2505670, 8782248 ####[facility] [address] [place] [address] CO2 [Moles/Vol] 28 mmol/L Normal 21-31 [facility] Comment on above: Performed By: #### 1 8274510, 3281389, 7287469, 2964511 ####[facility] [address] [place] [address] Creatinine [Mass/Vol] 1.3 mg/dL Normal 0.5-1.3 [facility] Comment on above: Performed By: #### 1 0879290, 2105485, 7883450, 0111592 ####[facility] [address] [place] [address] Glucose [Mass/Vol] 97 mg/dL Normal 55-199 [facility] Comment on above: Result Comment: If t his glucose result represents a fasting glucose, interpretation should refer to the following reference range: 55-99 mg/dL Performed By: #### 1 2350286, 6664752, 0731011, 1921052 ####[facility] [address] [place] [address] Potassium [Moles/Vol] 4.6 mmol/L Normal 3.5-5.3 [facility] Comment on above: Performed By: #### 1 1740162, 0668947, 6077285, 2223544 ####[facility] [address] [place] [address] Sodium [Moles/Vol] 138 mmol/L Normal 135-145 [facility] Comment on above: Performed By: #### 1 2647005, 0380925, 5769149, 5974774 ####[facility] [address] [place] [address] Urea nitrogen [Mass/Vol] 24 mg/dL High 5-21 [facility] Comment on above: Performed By: #### 1 7819828, 4589629, 4633644, 7316934 ####[facility] [address] [place] [address] Urea nitrogen/Creatinine [Mass ratio] 18 No Units Normal 10-20 [facility] Comment on above: Performed By: #### 1 5372898, 7602725, 2035540, 9099796 ####[facility] [address] [place] [address] CHEMISTRYOrdered By: Lab ROP User on 12-01-2022 Glucose [Mass/Vol] 114 mg/dL High 55 - 99 mg/dL [facility] POC Subsection Comment on above: Result Comment: Gareth guerrero RN/ POC Device SN [id number] Invalid Interpretation Code [facility] POC Subsection POC User ID [id number] Invalid Interpretation Code [facility] POC Subsection POC Username MORGANCarolNETO Invalid Interpretation Code [facility] POC Subsection CHEMISTRYOrdered By: SYSTEM SYSTEM on 12-01-2022 Anion gap [Moles/Vol] 13 mmol/L Normal 6 - 16 mEq/L [facility] Remisol Calcium [Mass/Vol] 9.1 mg/dL Normal 8.9 - 11. 1 mg/dL FT [facility]isol Chloride [Moles/Vol] 102 mmol/L Normal 101 - 1 11 mmol/L FT Remisol CK [Catalytic activity/Vol] 211 [iU]/d Normal 14 - 261 Int._Unit/L [facility] [place] Remisol CO2 [Moles/Vol] 28 mmol/L Normal 21 - 31 mmol/L [facility] Creatinine [Mass/Vol] 1.3 mg/dL Normal 0.5 - 1.3 mg/dL [facility] Remisol GFR/1.73 sq M.predicted among non-blacks MDRD (S/P/Bld) [Vol rate/Area] 56 mL/min/1.73 m2 Low >=59mL/min/ 1.73 m2 [facility] Chem S Glucose [Mass/Vol] 97 mg/dL Normal 55 - 199 mg/dL [facility] Magnesium [Mass/Vol] 2.1 mg/dL Normal 1.3 - 2 .4 mg/dL [facility] Potassium [Moles/Vol] 4.6 mmol/L Normal 3.5 - 5.3 mmol/L [facility] Sodium [Moles/Vol] 138 mmol/L Normal 135 - 145 mmol/L [facility] Urea nitrogen [Mass/Vol] 24 mg/dL High 5 - 21 mg/dL [facility] Remisol Urea nitrogen/Creatinine [Mass ratio] 18 mg/mg Normal 10 - 20 [facility] Remisol CKon 12-01-2022 CK [Catalytic activity/Vol] 211 Int._Unit/L Normal 14-261 [facility] Comment on above: Performed By: #### 1 [id number], 6243159, 3296812, 0215830 ####[facility] [address] [place] [address] Capillary Glucose POCon 11-21 Glucose [Mass/Vol] 114 mg/dL High 55-99 [facility] Comment on above: Result Comment: Gareth GARDINER Performed By: #### 2 [id number] ####[facility] [address] [place] [address] Glucose [Mass/Vol] 193 mg/dL High 55-99 [facility] Comment on above: Result Comment: Gareth GARDINER Performed By: #### 2 [id number] ####[facility] [address] [place] [address] Glucose [Mass/Vol] 203 mg/dL High 55-99 [facility] Comment on above: Result Comment: Gareth GARDINER Performed By: #### 2 [id number] ####[facility] [address] [place] [address] Glucose [Mass/Vol] 110 mg/dL High 55-99 [facility] Comment on above: Result Comment: Gareth GARDINER Performed By: #### 2 [id number] ####[facility] [address] [place] [address] Interdisciplinary Note - Santosh e Manageron 12-01-2022 Interdisciplinary Note - Television Camera Operator Pt is asleep in bed, no family present. Pt is accepted to [facility] side, pending precert at this time. Contact information provided and white board updated, CRM following Normal [facility] Comment on above: Result Comment: Elec tronically Signed By: Dank HAYDEN, Lisa\.br\Date and Time Signed: 12/01/22 08:20 EDT Ionized Calciumon 12-01-2022 Calcium.ionized ISE [Mass/Vol] 4.8 mg/dL Invalid Interpretation Code 4.5-5.6 [facility] Comment on above: Result Comment: Perf ormed at: [facility] [address] [place], [place] [id number] PhD Michael Cortes Performed By: #### 2 400868, 6455630, 3041612, 92038055, 62443027, 4410815, 85288994, 8435297, 84591794, 159776195, 1894168, 8068154 ####[facility] [address] [place] [address] Magnesiumon 12-01-2022 Magnesium [Mass/Vol] 2.1 mg/dL Normal 1.3-2.4 [facility] Comment on above: Performed By: #### 1 8529292, 0964727, 8244569, 7818670 ####[facility] [address] [place] [address] Progress Note-Physicianon Progress Note-Physician Normal [facility] Comment on above: Result Comment: Elec tronically Signed By: Pao POTTS, Lizeth\.br\Date and Time Signed: 12/01/22 12:41 EDT XR Abdomen 1 Viewon 12-02-19 23 XR Abdomen 1 View Normal [facility] eGFRon 12-01-2022 GFR/1.73 sq M.predicted among non-blacks MDRD (S/P/Bld) [Vol rate/Area] 56 mL/min/1.73 m2 Low >=59 [facility] Comment on above: Order Comment: Order added by Discern Expert. Result Comment: Bilingual Office Assistant earnest kidney disease could be indicated at eGFR's of less than 60 mL/min/1.73m2. Kidney failure is indicated at less than 15 mL/min/1.73m2. Performed By: #### 1 6151051, 1191778, 3889317, 4414380 ####[facility] [address] [place] [address] BMPon 11-30-2022 Anion gap [Moles/Vol] 11 mmol/L Normal 6-16 [facility] Comment on above: Performed By: #### 2 358545, 6425741, 93081259 ####[facility] [address] [place] [address] Calcium [Mass/Vol] 9.0 mg/dL Normal 8.9-11.1 [facility] Comment on above: Performed By: #### 2 874198, 6570646, 41643115 ####[facility] [address] [place] [address] Chloride [Moles/Vol] 102 mmol/L Normal 101-111 [facility] Comment on above: Performed By: #### 2 261324, 5343758, 71102961 ####[facility] [address] [place] [address] CO2 [Moles/Vol] 31 mmol/L Normal 21-31 [facility] Comment on above: Performed By: #### 2 519312, 4881157, 73462770 ####[facility] [address] [place] [address] Creatinine [Mass/Vol] 1.1 mg/dL Normal 0.5-1.3 [facility] Comment on above: Performed By: #### 2 756903, 5089627, 57044635 ####[facility] [address] [place] [address] Glucose [Mass/Vol] 114 mg/dL Normal 55-199 [facility] Comment on above: Result Comment: If t his glucose result represents a fasting glucose, interpretation should refer to the following reference range: 55-99 mg/dL Performed By: #### 2 514967, 3723283, 30315961 ####[facility] [address] [place] [address] Potassium [Moles/Vol] 3.4 mmol/L Low 3.5-5.3 [facility] Comment on above: Performed By: #### 2 026819, 7129567, 90901128 ####[facility] [address] [place] [address] Sodium [Moles/Vol] 141 mmol/L Normal 135-145 [facility] Comment on above: Performed By: #### 2 324707, 8050403, 48018480 ####[facility] [address] [place] [address] Urea nitrogen [Mass/Vol] 23 mg/dL High 5-21 [facility] Comment on above: Performed By: #### 2 225430, 0307550, 51847735 ####[facility] [address] [place] [address] Urea nitrogen/Creatinine [Mass ratio] 21 No Units High 10-20 [facility] Comment on above: Performed By: #### 2 432923, 0446286, 55349040 ####[facility] [address] [place] [address] CHEMISTRYOrdered By: SYSTEM SYSTEM on 11-30-2022 Anion gap [Moles/Vol] 11 mmol/L Normal 6 - 16 mEq/L [facility] Remisol Calcium [Mass/Vol] 9.0 mg/dL Normal 8.9 - 11. 1 mg/dL [facility] Chloride [Moles/Vol] 102 mmol/L Normal 101 - 1 11 mmol/L [facility] Remisol CO2 [Moles/Vol] 31 mmol/L Normal 21 - 31 mmol/L [facility] Remisol Creatinine [Mass/Vol] 1.1 mg/dL Normal 0.5 - 1.3 mg/dL [facility] Remisol GFR/1.73 sq M.predicted among non-blacks MDRD (S/P/Bld) [Vol rate/Area] 69 mL/min/1.73 m2 Normal >=59mL/min/ 1.73 m2 [facility] Chem S Glucose [Mass/Vol] 114 mg/dL Normal 55 - 199 mg/dL [facility] Magnesium [Mass/Vol] 1.8 mg/dL Normal 1.3 - 2 .4 mg/dL [facility] Potassium [Moles/Vol] 3.4 mmol/L Low 3.5 - 5.3 mmol/L [facility] Remisol Sodium [Moles/Vol] 141 mmol/L Normal 135 - 145 mmol/L [facility] Remisol Urea nitrogen [Mass/Vol] 23 mg/dL High 5 - 21 mg/dL [facility] Remisol Urea nitrogen/Creatinine [Mass ratio] 21 mg/mg High 10 - 20 [facility] Remisol Capillary Glucose POCon 11-21 Glucose [Mass/Vol] 194 mg/dL High 55-99 [facility] Comment on above: Result Comment: Gareth GARDINER Performed By: #### 2 [id number] ####[facility] [address] [place] [address] Glucose [Mass/Vol] 96 mg/dL Normal 55-99 [facility] Comment on above: Performed By: #### 2 09084102 ####[facility] [address] [place] [address] Glucose [Mass/Vol] 130 mg/dL High 55-99 [facility] Comment on above: Result Comment: Gareth GARDINER Performed By: #### 2 [id number] ####[facility] [address] [place] [address] Glucose [Mass/Vol] 113 mg/dL High 55-99 [facility] Comment on above: Result Comment: Gareth GARDINER Performed By: #### 2 [id number] ####[facility] [address] [place] [address] Echo Transthoracic Completeo n 11-30-2022 Echo Transthoracic Complete Normal [facility] Insurance Correspondence Off iceon 11-30-2022 Insurance Correspondence Office [id number]#1 .00CD:127 Normal [facility] Interdisciplinary Note - Santosh e Manageron 11-30-2022 Interdisciplinary Note - Television Camera Operator Normal [facility] Comment on above: Result Comment: Elec tronically Signed By: Dank HAYDEN, Lisa\.candice\Date and Time Signed: 11/30/22 10:48 EDT Magnesiumon 11-30-2022 Magnesium [Mass/Vol] 1.8 mg/dL Normal 1.3-2.4 [facility] Comment on above: Performed By: #### 2 875711, 1505481, 52519917 ####[facility] [address] [place] [address] Message from Medicareon 11-21 Message from Medicare [id number]#1 .00CD:127 Normal [facility] Progress Note-Physicianon Progress Note-Physician Normal [facility] Comment on above: Result Comment: Elec tronically Signed By: Tino POTTS, Joanie\.br\Date and Time Signed: 11/30/22 15:13 EDT Progress Note-Physician Normal [facility] Comment on above: Result Comment: Elec tronically Signed By: Pao POTTS, Lizeth\.br\Date and Time Signed: 11/30/22 14:52 EDT UA With Cult Reflexon 2022 Bacteria LM Ql (Urine sed) TRACE Normal Trace [facility] Comment on above: Order Comment: Urina ry Catheter Insertion triggered Urinalysis With Culture Reflex order by discern. Performed By: #### 1 [id number] ####[facility] [address] [place] [address] Bilirubin Ql (U) Negative Normal Negative [facility] Comment on above: Order Comment: Urina ry Catheter Insertion triggered Urinalysis With Culture Reflex order by discern. Performed By: #### 1 6948303 ####[facility] [address] [place] [address] Clarity (U) CLEAR Normal Clear [facility] Comment on above: Order Comment: Urina ry Catheter Insertion triggered Urinalysis With Culture Reflex order by discern. Performed By: #### 1 7637377 ####[facility] [address] [place] [address] Color (U) YELLOW Normal Yellow [facility] Comment on above: Order Comment: Urina ry Catheter Insertion triggered Urinalysis With Culture Reflex order by discern. Performed By: #### 1 1837264 ####[facility] [address] [place] [address] Epithelial cells.squamous LM.HPF (Urine sed) [#/Area] 0-2 Normal 0-2 [facility] Comment on above: Order Comment: Urina ry Catheter Insertion triggered Urinalysis With Culture Reflex order by discern. Performed By: #### 1 9516775 ####[address] [address] Glucose Test strip (U) [Mass/Vol] Negative Normal Negative [facility] Comment on above: Order Comment: Urina ry Catheter Insertion triggered Urinalysis With Culture Reflex order by discern. Performed By: #### 1 7875799 ####[address] [address] Hemoglobin Ql (U) Negative Normal Negative [facility] Comment on above: Order Comment: Urina ry Catheter Insertion triggered Urinalysis With Culture Reflex order by discern. Performed By: #### 1 9089833 ####[address] [address] Ketones (U) [Mass/Vol] Negative Normal Negative [facility] Comment on above: Order Comment: Urina ry Catheter Insertion triggered Urinalysis With Culture Reflex order by discern. Performed By: #### 1 9731316 ####[address] [address] [place].plasma/[place].R BC (Bld) [Mass ratio] 0-3 Normal 0-3 [facility] Comment on above: Order Comment: Urina ry Catheter Insertion triggered Urinalysis With Culture Reflex order by discern. Performed By: #### 1 3439613 ####[facility] [address] [place] [address] Nitrite Ql (U) Negative Normal Negative [facility] Comment on above: Order Comment: Urina ry Catheter Insertion triggered Urinalysis With Culture Reflex order by discern. Performed By: #### 1 5533730 ####[address] [address] pH (U) 6.0 [pH] Invalid Interpretation Code 5.0-9.0 [facility] Comment on above: Order Comment: Urina ry Catheter Insertion triggered Urinalysis With Culture Reflex order by discern. Performed By: #### 1 5325361 ####[address] [address] Protein (U) [Mass/Vol] Negative Normal Negative [facility] Comment on above: Order Comment: Urina ry Catheter Insertion triggered Urinalysis With Culture Reflex order by discern. Performed By: #### 1 2089292 ####[place] [address] Specific gravity (U) [Rel density] 1.010 Invalid Interpretation Code 1.005-1.030 [facility] Comment on above: Order Comment: Urina ry Catheter Insertion triggered Urinalysis With Culture Reflex order by discern. Performed By: #### 1 6675295 ####[place] [address] Type of Urine collection method Red Normal [facility] Comment on above: Order Comment: Urina ry Catheter Insertion triggered Urinalysis With Culture Reflex order by discern. Performed By: #### 1 7029707 ####[place] [address]57 Urobilinogen Qn (U) 0.2 {Lei'U}/dL Normal 0.0-1.0 [facility] Comment on above: Order Comment: Urina ry Catheter Insertion triggered Urinalysis With Culture Reflex order by discern. Performed By: #### 1 1185597 ####[place] [address]57 WBC Auto Ql (U) Negative Normal Negative [facility] Comment on above: Order Comment: Urina ry Catheter Insertion triggered Urinalysis With Culture Reflex order by discern. Performed By: #### 1 8860375 ####[place] [address]57 WBC casts LM.LPF (Urine sed) [#/Area] 0-3 Normal [facility] Comment on above: Order Comment: Urina ry Catheter Insertion triggered Urinalysis With Culture Reflex order by discern. Performed By: #### 1 5894341 ####[facility] [address] [place] [address] WBC LM.HPF (Urine sed) [#/Area] 0-5 Normal 0-5 [facility] Comment on above: Order Comment: Urina ry Catheter Insertion triggered Urinalysis With Culture Reflex order by discern. Performed By: #### 1 0024082 ####[facility] [address] [place] [address] URINALYSISOrdered By: Houston Castillo on 11-30-2022 Bacteria [...] AM) Normal Negative [facility] UA Auto SS [place].plasma/[place].R BC (Bld) [Mass ratio] 0-3 /HPF Normal [...] Spec Desc Red (11/30/22 11:00 AM) Normal [facility] UA Auto SS Urobilinogen Qn (U) 0.4193736 {Lei'U}/dL Normal 0.0 - 1.0 EU/dL [facility] UA Auto SS WBC Auto Ql (U) Negative (11/30/22 11:00 AM) Normal Negative [facility] UA Auto SS WBC casts LM.LPF (Urine sed) [#/Area] 0-3 (11/30/22 11:00 AM) Normal [facility] UA Auto SS WBC LM.HPF (Urine sed) [#/Area] 0-5 /HPF Normal 0-5/HPF [facility] UA Auto SS eGFRon 11-30-2022 GFR/1.73 sq M.predicted among non-blacks MDRD (S/P/Bld) [Vol rate/Area] 69 mL/min/1.73 m2 Normal >=59 [facility] Comment on above: Order Comment: Order added by Discern Expert. Result Comment: Bilingual Office Assistant earnest kidney disease could be indicated at eGFR's of less than 60 mL/min/1.73m2. Kidney failure is indicated at less than 15 mL/min/1.73m2. Performed By: #### 2 684289, 6716380, 41540309 ####[facility] [address] [place] [address] Auto Diffon 11-29-2022 Basophils/100 WBC (Bld) 0.5 % Normal 0.0-2.0 [facility] Comment on above: Order Comment: Order Added by Discern Expert. Performed By: #### 2 348846, 4590337, 1610672, 92049481, 66314264, 6678408, 76863182, 6821544, 78606867, 267807633, 7248071, 3539449 ####[facility] [address] [place] [address] Basophils/Leukocytes Auto (Bld) [Pure # fraction] 0.0 E9/L Normal 0.0-0.2 [facility] Comment on above: Order Comment: Order Added by Discern Expert. Performed By: #### 2 980359, 9862239, 3080949, 82456387, 64519328, 4859067, 16292468, 4830434, 21625763, 161039518, 1025816, 2481954 ####[facility] [address] [place] [address] Eosinophils/100 WBC (Bld) 8.4 % High 0.0-8.0 [facility] Comment on above: Order Comment: Order Added by Discern Expert. Performed By: #### 2 682877, 5974190, 8180777, 61213596, 55633001, 1522521, 86574329, 6229541, 28055093, 766335893, 5115014, 6700946 ####[facility] [address] [place] [address] Eosinophils/Leukocytes Auto (Bld) [Pure # fraction] 0.6 E9/L High 0.0-0.5 [facility] Comment on above: Order Comment: Order Added by Discern Expert. Performed By: #### 2 251680, 0265007, 6071277, 34757969, 02868035, 4162404, 51206040, 2908860, 00503023, 486592042, 1504912, 2346524 ####[facility] [address] [place] [address] Lymphocytes/100 WBC (Bld) 15.8 % Normal 14.0-50.0 [facility] Comment on above: Order Comment: Order Added by Discern Expert. Performed By: #### 2 020959, 6781320, 5928210, 34519179, 98295330, 7416713, 89473418, 3570122, 65472190, 796851030, 0873922, 5176877 ####[facility] [address] [place] [address] Lymphocytes/Leukocytes Auto (Bld) [Pure # fraction] 1.2 E9/L Normal 1.0-4.0 [facility] Comment on above: Order Comment: Order Added by Discern Expert. Performed By: #### 2 690636, 1741974, 6602374, 85220423, 09464193, 0344330, 91801608, 4928805, 01859504, 418422474, 1867590, 4406542 ####[facility] [address] [place] [address] Monocytes/100 WBC (Bld) 8.4 % Normal 4.0-14.0 [facility] Comment on above: Order Comment: Order Added by Discern Expert. Performed By: #### 2 439592, 4006117, 0669749, 18519866, 96667222, 6019979, 32079419, 0211373, 29545539, 783714410, 7840137, 9037629 ####[facility] [address] [place] [address] Monocytes/Leukocytes Auto (Bld) [Pure # fraction] 0.6 E9/L Normal 0.2-1.0 [facility] Comment on above: Order Comment: Order Added by Discern Expert. Performed By: #### 2 616708, 7760194, 9133441, 19390172, 32653308, 6434927, 61704202, 6652107, 91113157, 007371060, 9397605, 8188726 ####[facility] [address] [place] [address] Neutrophils/100 WBC (Bld) 66.9 % Normal 36.0-75.0 [facility] Comment on above: Order Comment: Order Added by Discern Expert. Performed By: #### 2 778128, 7676175, 3076396, 76369884, 18218816, 4732648, 98670136, 8443866, 79321818, 527328143, 9432167, 7998764 ####[facility] [address] [place] [address] Neutrophils/Leukocytes Auto (Bld) [Pure # fraction] 5.0 E9/L Normal 2.0-7.5 [facility] Comment on above: Order Comment: Order Added by Discern Expert. Performed By: #### 2 065468, 9282490, 2204974, 93258015, 18169178, 1686211, 81146527, 2129869, 91670501, 999033138, 9789603, 0841022 ####[facility] [address] [place] [address] BMPon 11-29-2022 Anion gap [Moles/Vol] 13 mmol/L Normal 6-16 [facility] Comment on above: Performed By: #### 2 357386, 4469791, 7918728, 12716941, 14290707, 4005942, 42299749, 4138989, 86552380, 118837283, 5156708, 9254013 ####[facility] [address] [place] [address] Calcium [Mass/Vol] 9.1 mg/dL Normal 8.9-11.1 [facility] Comment on above: Performed By: #### 2 024149, 8947420, 9765847, 45679021, 17057249, 5639131, 25564725, 3490329, 13827178, 911489687, 6299222, 3949877 ####[facility] [address] [place] [address] Chloride [Moles/Vol] 102 mmol/L Normal 101-111 [facility] Comment on above: Performed By: #### 2 730338, 0035239, 1783239, 00539124, 13670515, 8966326, 33085768, 5105052, 97721215, 868991367, 8014808, 5855995 ####[facility] [address] [place] [address] CO2 [Moles/Vol] 29 mmol/L Normal 21-31 [facility] Comment on above: Performed By: #### 2 735869, 3200916, 1269140, 58862294, 24087673, 5379203, 93239190, 4855964, 83522586, 799836211, 7726695, 6987049 ####[facility] [address] [place] [address] Creatinine [Mass/Vol] 1.1 mg/dL Normal 0.5-1.3 [facility] Comment on above: Performed By: #### 2 087468, 9093259, 9236287, 00435496, 02454583, 8154738, 19360435, 3013618, 51662088, 668214386, 6674449, 2423874 ####[facility] [address] [place] [address] Glucose [Mass/Vol] 95 mg/dL Normal 55-199 [facility] Comment on above: Result Comment: If t his glucose result represents a fasting glucose, interpretation should refer to the following reference range: 55-99 mg/dL Performed By: #### 2 820574, 3058162, 6959589, 88264939, 61400113, 4457334, 66349301, 2623177, 86152076, 197125583, 0251507, 1019301 ####[facility] [address] [place] [address] Potassium [Moles/Vol] 3.9 mmol/L Normal 3.5-5.3 [facility] Comment on above: Performed By: #### 2 304717, 9656347, 4482404, 16590606, 23550786, 5942784, 44917916, 9837413, 47052525, 221181108, 6389751, 3673445 ####[facility] [address] [place] [address] Sodium [Moles/Vol] 140 mmol/L Normal 135-145 [facility] Comment on above: Performed By: #### 2 017124, 0360932, 4021416, 97228736, 01905591, 8135866, 74378338, 1726229, 07953410, 545402233, 5427925, 6955677 ####[facility] [address] [place] [address] Urea nitrogen [Mass/Vol] 16 mg/dL Normal 5-21 [facility] Comment on above: Performed By: #### 2 265554, 9808920, 9080774, 58916500, 26647300, 8588464, 52494444, 3540886, 79041582, 397708524, 9252743, 9189286 ####[facility] [address] [place] [address] Urea nitrogen/Creatinine [Mass ratio] 14 No Units Normal 10-20 [facility] Comment on above: Performed By: #### 2 203867, 5601366, 5484885, 42005822, 77708291, 0595403, 96768719, 4419794, 82017410, 271808326, 5517365, 2914351 ####[facility] [address] [place] [address] BNPon 11-29-2022 Natriuretic peptide B (Bld) [Mass/Vol] 855 pg/mL High 5-80 [facility] Comment on above: Performed By: #### 2 729414, 6130467, 2478265, 10468151, 96352785, 0510840, 83605053, 5380845, 02218612, 203015942, 4966400, 2434754 ####[facility] [address] [place] [address] CBC w/ Auto Diffon 3 Erythrocyte distribution width (RBC) [Ratio] 14.9 % High 10.9-14.2 [facility] Comment on above: Performed By: #### 2 594775, 1363886, 6468619, 90432786, 11211294, 5872013, 19557864, 2445943, 58241509, [id number], 5982347, 3808392 ####[facility] [address] [place] [address] Hematocrit (Bld) [Volume fraction] 38.1 % Normal 37.7-49.0 [facility] Comment on above: Performed By: #### 2 540030, 7065334, 1416193, 30815430, 25299052, 3715369, 44432969, 2867420, 05856210, 815867422, 5234205, 0114494 ####[facility] [address] [place] [address] Hemoglobin (Bld) [Mass/Vol] 12.8 g/dL Low 13.5-17.5 [facility] Comment on above: Performed By: #### 2 241381, 4606448, 2669880, 07181214, 46995344, 5185815, 25041302, 0047167, 45219853, 082861173, 8718951, 3881995 ####[facility] [address] [place] [address] MCH (RBC) [Entitic mass] 29.0 pg Normal 27.0-34.0 [facility] Comment on above: Performed By: #### 2 789207, 6336074, 6262916, 30855117, 16740961, 1881738, 69337146, 4767361, 41649669, 872519656, 4745800, 2743487 ####[facility] [address] [place] [address] MCHC (RBC) [Mass/Vol] 33.7 g/dL Normal 31.4-36.0 [facility] Comment on above: Performed By: #### 2 507803, 1939869, 0478115, 17710708, 63102274, 6033072, 69262171, 2667979, 55185734, 476442036, 8597109, 5049163 ####[facility] [address] [place] [address] MCV (RBC) [Entitic vol] 86.1 fL Normal 80.0-100.0 [facility] Comment on above: Performed By: #### 2 442001, 6824176, 4039897, 50290907, 11587762, 7681696, 90839935, 7620001, 63886353, 929636470, 1767017, 3343921 ####[facility] [address] [place] [address] Platelet mean volume (Bld) [Entitic vol] 10.9 fL High 6.4-10.8 [facility] Comment on above: Performed By: #### 2 311102, 5332176, 1707065, 24199273, 22792455, 9462312, 70301355, 3015407, 25876822, 388907337, 1461955, 5268285 ####[facility] [address] [place] [address] Platelets (Bld) [#/Vol] 189.0 E9/L Normal 150.0-500.0 [facility] Comment on above: Performed By: #### 2 087586, 6737236, 0374231, 90138818, 64140744, 7255058, 29541342, 6201668, 50036913, 351464066, 5599097, 4341868 ####[address] [address] RBC (Bld) [#/Vol] 4.4 E12/L Normal 4.3-5.9 [facility] Comment on above: Performed By: #### 2 797323, 6144086, 5397489, 48577469, 79579271, 2703752, 05628765, 2253400, 82838651, 454229375, 4433359, 2325234 ####[facility] [address] [place] [address] WBC corrected for nucl RBC Auto (Bld) [#/Vol] 7.4 E9/L Normal 4.0-11.0 [facility] Comment on above: Performed By: #### 2 817957, 5677511, 1393376, 08561534, 58593582, 9137396, 96825492, 2042495, 17525599, 409852900, 5218854, 7239504 ####[facility] [address] [place] [address] CHEMISTRYOrdered By: SYSTEM SYSTEM on 11-29-2022 Albumin [Mass/Vol] 3.6 g/dL Normal 3.3 - 5.0 gm/dL [facility] Remisol Albumin/Globulin [Mass ratio] 1.2 {ratio} Normal [...] 69 mL/min/1.73 m2 Normal >=59mL/min/ 1.73 m2 [facility] Chem S Globulin (S) [Mass/Vol] 3.1 g/dL [...] 3.43 m[IU]/L Normal 0.34 - 5.60 mcIU/mL [facility] Remisol Urea nitrogen [Mass/Vol] 16 mg/dL Normal 5 - 21 mg/dL [facility] Remisol Urea nitrogen/Creatinine [Mass ratio] 14 mg/mg Normal 10 - 20 [facility] Remisol 25-hydroxyvitamin D3 [Mass/Vol] ng/mL Low 30.0 - 100.0 ng/mL [facility] Remisol Troponin I.cardiac [Mass/Vol] 37.00 pg/mL Normal 15.90 - 38.40 pg/mL [facility] Remisol CHEMISTRYOrdered By: Natalie Soto on 11-29-2022 Natriuretic peptide B (Bld) [Mass/Vol] 855 pg/mL High 5 - 80 pg/mL [facility] HemeManSS CHEMISTRYOrdered By: Marian peterson DomainUser on 11-29-2022 Calcium.ionized ISE [Mass/Vol] 4.8 mg/dL Invalid Interpretation Code 4.5-5.6mg/d L [facility] SendOutsSS Comment on above: Result Comment: Perf ormed at: [facility] [address] [id number] PhD Michael Cortes CKon 11-29-2022 CK [Catalytic activity/Vol] 1096 Int._Unit/L Abnormal 14-261 [facility] Comment on above: Result Comment: Crit ical Result verified by repeat analysis\Critical Result S_CK:[id number] Called to MANAS BARBA AT by AMY JOHNSON and read back for confirmation at 11/29/2022 06:40:15 Performed By: #### 2 937854, 6514171, 3105412, 38361440, 18611821, 1659889, 45352651, 5223957, 88951180, 026833932, 5778005, 5868788 ####[facility] [address] [place] [address] CT Abdomen/Pelvis w/ Contras ton 11-29-2022 CT Abdomen/Pelvis w/ Contrast Normal [facility] CT Head or Brain w/o Contras ton 11-29-2022 CT Head or Brain w/o Contrast Normal [facility] CTA Cheston 11-29-2022 CTA Chest Normal [facility] Capillary Glucose POCon Glucose [Mass/Vol] 122 mg/dL High 55-99 [facility] Comment on above: Result Comment: Gareth guerrero RN/ Performed By: #### 2 [id number] ####[facility] [address] [place] [address] Glucose [Mass/Vol] 174 mg/dL High 55-99 [facility] Comment on above: Performed By: #### 2 82251549 ####[facility] [address] [place] [address] Glucose [Mass/Vol] 107 mg/dL High 55-99 [facility] Comment on above: Result Comment: Gareth GARDINER Performed By: #### 2 [id number] ####[facility] [address] [place] [address] Consultation Noteon 11-30-19 Consultation Note Normal [facility] Comment on above: Result Comment: Elec tronically Signed By: Marcus POTTS, [place]\Date and Time Signed: 11/29/22 14:44 EDT ED Clinical Summaryon 2022 ED Clinical Summary Normal [facility] ED Note-Physicianon 11-30-19 23 ED Note-Physician Normal [facility] Comment on above: Result Comment: Elec tronically Signed By: Elkin Hitchcock DO\.br\Date and Time Signed: 11/28/22 22:32 EDT ED Patient Education Noteon 11-29-2022 ED Patient Education Note Normal [facility] ED Patient Summaryon 023 ED Patient Summary Normal [facility] HEMATOLOGYOrdered By: SYSTEM SYSTEM on 11-29-2022 [...] 34.0 pg FT HemeAutoSS MCHC (RBC) [Mass/Vol] 33.7 g/dL Normal [...] 11-29-2022 Albumin [Mass/Vol] 3.6 g/dL Normal 3.3-5.0 [facility] Comment on above: Performed By: #### 2 921738, 5472758, 0554846, 42898168, 81719759, 8995900, 03177721, 0609721, 54184850, 290750533, 5783736, 8086001 ####[facility] [address] [place] [address] Albumin/Globulin (S) [Mass conc ratio] 1.2 Normal 1.1-2.2 [facility] Comment on above: Performed By: #### 2 703424, 5788562, 1585794, 92887927, 92557221, 7061710, 67523524, 4130288, 57816295, 787659812, 5003810, 0869747 ####[facility] [address] [place] [address] ALP [Catalytic activity/Vol] 40 Int._Unit/L Normal 21-98 [facility] Comment on above: Performed By: #### 2 280494, 8520943, 7318556, 06292867, 25056222, 5457430, 60956669, 1065198, 98981586, 368403650, 3912789, 0459904 ####[facility] [address] [place] [address] ALT No additional P-5'-P [Catalytic activity/Vol] 17 Int._Unit/L Normal 6-46 [facility] Comment on above: Performed By: #### 2 477565, 8545985, 3804331, 45131154, 32781674, 1829655, 95174770, 1635965, 52472151, 644332994, 8758977, 6086889 ####[facility] [address] [place] [address] AST [Catalytic activity/Vol] 33 Int._Unit/L Normal 5-43 [facility] Comment on above: Performed By: #### 2 817875, 1528267, 6132193, 64888066, 10642108, 1070568, 73772895, 2515173, 66696824, 395307100, 3611216, 3817740 ####[facility] [address] [place] [address] Bilirubin [Mass/Vol] 1.1 mg/dL Normal 0.0-1.1 [facility] Comment on above: Performed By: #### 2 463302, 3080340, 2905352, 83203085, 28938102, 4053454, 60710252, 7262438, 61514433, 689739524, 6167105, 6140593 ####[facility] [address] [place] [address] Bilirubin.direct [Mass/Vol] 0.2 mg/dL Normal 0.1-0.4 [facility] Comment on above: Performed By: #### 2 377583, 5680050, 5466774, 09639006, 08407446, 1690605, 51356274, 1050151, 12767184, 350155083, 9107813, 2110538 ####[facility] [address] [place] [address] Bilirubin.indirect [Mass or moles/Vol] 0.9 mg/dL Normal 0.1-0.9 [facility] Comment on above: Performed By: #### 2 503699, 0631784, 8647091, 25655840, 70156094, 8022274, 65731239, 5323471, 44873828, 336099436, 0219241, 3565256 ####[facility] [address] [place] [address] Globulin (S) [Mass/Vol] 3.1 g/dL Normal 1.4-4.0 [facility] Comment on above: Performed By: #### 2 176136, 2453641, 0346021, 19782089, 00791423, 7945000, 98274368, 3212655, 89222044, 253613101, 8754500, 4437362 ####[facility] [address] [place] [address] Protein [Mass/Vol] 6.7 g/dL Normal 6.0-7.8 [facility] Comment on above: Performed By: #### 2 516054, 8888190, 5080286, 74472352, 99489177, 8568672, 78431391, 5776389, 49209310, 550798036, 3199386, 3024644 ####[facility] [address] [place] [address] Interdisciplinary Note - Santosh e Manageron 11-29-2022 Interdisciplinary Note - Television Camera Operator Normal [facility] Comment on above: Result Comment: Elec tronically Signed By: Jose HAYDEN, Norma\.br\Date and Time Signed: 11/29/22 15:07 EDT Lipid Panelon 11-29-2022 Cholesterol [Mass/Vol] 114 mg/dL Low 120-200 [facility] Comment on above: Performed By: #### 2 013123, 9158885, 6838093, 14729346, 62028849, 1085670, 21234733, 9249166, 89945287, 447005390, 2564526, 5386554 ####[facility] [address]Nor[facility] [place] [address] Cholesterol in HDL [Mass/Vol] 50 mg/dL Invalid Interpretation Code [facility] Comment on above: Result Comment: HDL > or equal to 60 mg/dL: Low cardiovascular riskHDL < 40 mg/dL : High cardiovascular risk Performed By: #### 2 527108, 3013674, 7406545, 82681479, 13546338, 8403218, 28571849, 1913977, 47975738, 222483318, 9306627, 6125623 ####[facility] [address] [place] [address] Cholesterol in LDL [Mass/Vol] 43 mg/dL Normal <=129 [facility] Comment on above: Performed By: #### 2 993891, 9972896, 5119961, 98878956, 58044123, 2570608, 88509191, 4230302, 03126571, 013547501, 5191260, 0956839 ####[facility] [address] [place] [address] Cholesterol in VLDL [Mass/Vol] 14 mg/dL Normal 7-40 [facility] Comment on above: Performed By: #### 2 329865, 4894841, 4442888, 28503360, 82565630, 9927891, 79660893, 0700472, 94756010, 647510031, 9362482, 9756831 ####[facility] [address]Norclif[address] [place] [address] Triglyceride [Mass/Vol] 72 mg/dL Normal <=149 [facility] Comment on above: Performed By: #### 2 703197, 9649566, 8454518, 29416984, 51005538, 7361680, 06834470, 2420833, 20782359, 176247243, 4017546, 3270709 ####[facility] [address] [place] [address] Monitor Recordon 11-29-2022 Monitor Record [id number]# 1.00CD:127 Normal [facility] Monitor Record [id number]# 1.00CD:127 Normal [facility] Monitor Record [id number]# 1.00CD:127 Normal [facility] Monitor Record [id number]# 1.00CD:127 Normal [facility] Monitor Record [id number]# 1.00CD:127 Normal [facility] Monitor Record [id number]# 1.00CD:127 Normal [facility] Monitor Record [id number]# 1.00CD:127 Normal [facility] Monitor Record [id number]# 1.00CD:127 Normal [facility] Progress Note-Physicianon Progress Note-Physician [facility] Comment on above: Result Comment: Elec tronically Signed By: New Johnson DO.br\Date and Time Signed: 11/29/22 10:54 EDT RAD - Preliminary Cat Scan R eporton 11-29-2022 RAD - Preliminary Cat Scan Report [id number] #1.00CD:127 Normal [facility] Sed Rate Automatedon 023 Sed Rate Automated 17 mm/hr Normal 0-19 [facility] Comment on above: Performed By: #### 2 241890, 5437535, 7547267, 87222837, 35461601, 2984292, 33293544, 5116623, 03019897, 378655479, 0746540, 6718833 ####[facility] [address] [place] [address] TSH With T4fr Reflexon 11-29 TSH Qn 3.43 m[IU]/L Normal 0.34-5.60 [facility] Comment on above: Performed By: #### 2 283441, 4246776, 6686528, 29809488, 70055454, 4492169, 94772237, 8237517, 14092560, 206793943, 8863129, 7951910 ####[facility] [address] [place] [address] Troponin 6 Hr.on 11-29-2022 Troponin I.cardiac [Mass/Vol] 32.60 pg/mL Normal 15.90-38.40 [facility] Comment on above: Result Comment: The 95% CI (Confidence Interval) PPV (Positive Predictive Value) for myocardial infarction in females is 38 pg/mL, in males 51 pg/mL. The results should be used in conjunction with clinical conditions of myocardial infarction.(Access High Sensitivity Troponin I Instructions For Use, [employer], December 2017) Performed By: #### 1 7877366 ####[facility] [address] [place] [address] Troponin 9 Hr.on 11-29-2022 Troponin I.cardiac [Mass/Vol] 37.00 pg/mL Normal 15.90-38.40 [facility] Comment on above: Result Comment: The 95% CI (Confidence Interval) PPV (Positive Predictive Value) for myocardial infarction in females is 38 pg/mL, in males 51 pg/mL. The results should be used in conjunction with clinical conditions of myocardial infarction.(Access High Sensitivity Troponin I Instructions For Use, [employer], December 2017) Performed By: #### 1 [id number] ####[facility] [address] [place] [address] Vitamin D 25 Hydroxyon 11-29 25-hydroxyvitamin D3 [Mass/Vol] ng/mL Low 30.0-100.0 [facility] Comment on above: Result Comment: Vit palacios D deficiency has been defined as a level of serum 25-OH vitamin D less than 20 ng/mL (1,2) by the [place] of [employer] and an Endocrine Society practice guideline. The Endocrine Society further defined vitamin D insufficiency as a level between 21 and 29 ng/mL (2). 1. IOM ([place] of Medicine). 2010. Dietary reference intakes for calcium and D. [place]: The National Academies Press. 2. Patricia MF, Praisa AGUIRRE, Reji PETERS, et al. Evaluation, treatment, and prevention of vitamin D deficiency: an Endocrine Society clinical practice guideline. JCEM. 2010; 96 (7):1911-30. Performed By: #### 2 306962, 8937651, 3829712, 88570566, 39105260, 5681267, 78625966, 9620838, 74496252, 664049135, 1214019, 1142414 ####[facility] [address] [place] [address] eGFRon 11-29-2022 GFR/1.73 sq M.predicted among non-blacks MDRD (S/P/Bld) [Vol rate/Area] 69 mL/min/1.73 m2 Normal >=59 [facility] Comment on above: Order Comment: Order added by Discern Expert. Result Comment: Bilingual Office Assistant earnest kidney disease could be indicated at eGFR's of less than 60 mL/min/1.73m2. Kidney failure is indicated at less than 15 mL/min/1.73m2. Performed By: #### 2 661445, 3427241, 1260344, 22730619, 21918499, 4364917, 83274985, 1128209, 14368983, 113685292, 1277137, 7510896 ####[facility] [address] [place] [address] Auto Diffon 11-28-2022 Basophils/100 WBC (Bld) 0.7 % Normal 0.0-2.0 [facility] Comment on above: Order Comment: Order Added by Discern Expert. Performed By: #### 1 6816541, 6635393, 8925807, 8268173, 97843551 ####[address] [place] [address] Basophils/Leukocytes Auto (Bld) [Pure # fraction] 0.0 E9/L Normal 0.0-0.2 [facility] Comment on above: Order Comment: Order Added by Discern Expert. Performed By: #### 1 0649047, 3271650, 5070865, 3880513, 75063183 ####[address] [address] Eosinophils/100 WBC (Bld) 7.4 % Normal 0.0-8.0 [facility] Comment on above: Order Comment: Order Added by Discern Expert. Performed By: #### 1 2759991, 5396919, 2364876, 1321373, 84514181 ####[address] [address] Eosinophils/Leukocytes Auto (Bld) [Pure # fraction] 0.5 E9/L Normal 0.0-0.5 [facility] Comment on above: Order Comment: Order Added by Bethany Expert. Performed By: #### 1 3073599, 6000680, 8995586, 2259069, 53619478 ####[address] [address] Lymphocytes/100 WBC (Bld) 9.3 % Low 14.0-50.0 [facility] Comment on above: Order Comment: Order Added by Discern Expert. Performed By: #### 1 2541562, 6475402, 7438334, 0593064, 74577031 ####[address] [place] [address] Lymphocytes/Leukocytes Auto (Bld) [Pure # fraction] 0.7 E9/L Low 1.0-4.0 [facility] Comment on above: Order Comment: Order Added by Bethany Expert. Performed By: #### 1 1581226, 6097512, 1128686, 7903775, 43434976 ####[address] [address] Monocytes/100 WBC (Bld) 6.6 % Normal 4.0-14.0 [facility] Comment on above: Order Comment: Order Added by Discern Expert. Performed By: #### 1 3344106, 6266986, 4307846, 0121145, 61086730 ####[facility] [address] [place] [address] Monocytes/Leukocytes Auto (Bld) [Pure # fraction] 0.5 E9/L Normal 0.2-1.0 [facility] Comment on above: Order Comment: Order Added by Discern Expert. Performed By: #### 1 2036955, 9732316, 3931045, 7393464, 04057919 ####[address] [place] [address] Neutrophils/100 WBC (Bld) 76.0 % High 36.0-75.0 [facility] Comment on above: Order Comment: Order Added by Discern Expert. Performed By: #### 1 2086862, 1113559, 0882921, 5102747, 29082552 ####[facility] [address] [place] [address] Neutrophils/Leukocytes Auto (Bld) [Pure # fraction] 5.4 E9/L Normal 2.0-7.5 [facility] Comment on above: Order Comment: Order Added by Discern Expert. Performed By: #### 1 5965338, 2876952, 2253645, 2441590, 22225670 ####[facility] [address] [place] [address] BMPon 11-28-2022 Creatinine [Mass/Vol] 1.0 mg/dL Normal 0.5-1.3 [facility] Comment on above: Performed By: #### 1 2509950, 0610689, 2389353, 7342386, 97853029 ####[facility] [address] [place] [address] Urea nitrogen [Mass/Vol] 16 mg/dL Normal 5-21 [facility] Comment on above: Performed By: #### 1 9053166, 7328936, 7009731, 1436571, 56970226 ####[facility] [address] [place] [address] Urea nitrogen/Creatinine [Mass ratio] 16 No Units Normal 10-20 [facility] Comment on above: Performed By: #### 1 3208029, 3831185, 3946394, 8343970, 00768441 ####[facility] [address] [place] [address] Anion gap [Moles/Vol] 10 mmol/L Normal 6-16 [facility] Comment on above: Performed By: #### 1 3651366, 2847567, 2615985, 9132078, 54878765 ####[facility] [address]Norcl[facility] [place] [address] Calcium [Mass/Vol] 8.8 mg/dL Low 8.9-11.1 [facility] Comment on above: Performed By: #### 1 7442609, 9492891, 4156484, 3911920, 13416535 ####[facility] [address] [place] [address] Chloride [Moles/Vol] 105 mmol/L Normal 101-111 [facility] Comment on above: Performed By: #### 1 4288555, 9851526, 1376697, 8809054, 62722283 ####[facility] [address] [place] [address] CO2 [Moles/Vol] 28 mmol/L Normal 21-31 [facility] Comment on above: Performed By: #### 1 6754537, 3651585, 8172679, 7251254, 09371264 ####[facility] [address] [place] [address] Glucose [Mass/Vol] 114 mg/dL Normal 55-199 [facility] Comment on above: Result Comment: If t his glucose result represents a fasting glucose, interpretation should refer to the following reference range: 55-99 mg/dL Performed By: #### 1 7892252, 6663713, 9937137, 2258246, 72991647 ####[facility] [address] [place] [address] Potassium [Moles/Vol] 4.1 mmol/L Normal 3.5-5.3 [facility] Comment on above: Performed By: #### 1 3892239, 5173917, 1716962, 4138244, 74627095 ####[facility] [address] [place] [address] Sodium [Moles/Vol] 139 mmol/L Normal 135-145 [facility] Comment on above: Performed By: #### 1 8101184, 7234729, 6812133, 7051284, 38008709 ####[address] [place] [address] Blood Gas Art, with Lytes, Paula christal, [place] 11-28-2022 a/A Ratio Art 53.40 % Normal >=0.80 [facility] Comment on above: Performed By: #### 4 [id number] ####[address] [address] AaDO2 Art 64.9 mmHg High 5.0-15.0 [facility] Comment on above: Performed By: #### 4 16456018 ####[address] [address] Allens Test Positive Normal [facility] Comment on above: Performed By: #### 4 17853970 ####[address] [place] [address] Base Excess Arterial 2.9 mmol/L Normal >=2.8 [facility] Comment on above: Performed By: #### 4 62029435 ####[address] [place] [address] cCa2+ Art 4.88 mg/dL Normal 4.40-5.30 [facility] Comment on above: Performed By: #### 4 78909593 ####[facility] [address] [place] [address] cCl- Art 103.0 mmol/L Normal 101.0-111.0 [facility] Comment on above: Performed By: #### 4 08444992 ####[facility] [address] [place] [address] cGlu Art 98 mg/dL Normal 55-99 [facility] Comment on above: Performed By: #### 4 40762290 ####[facility] [address] [place] [address] cK+ Art 3.6 mmol/L Normal 3.5-5.3 [facility] Comment on above: Performed By: #### 4 92248918 ####[facility] [address] [place] [address] cLac Art .6 mmol/L Normal .5-2.2 [facility] Comment on above: Performed By: #### 4 10856926 ####[facility] [address] [place] [address] devulcanizer head+ Art 139.0 mmol/L Normal 135.0-145.0 [facility] Comment on above: Performed By: #### 4 79027662 ####[facility] [address] [place] [address] Drawn by nmb Invalid Interpretation Code [facility] Comment on above: Performed By: #### 4 [id number] ####[facility] [address] [place] [address] FCOHb Art 1.5 % Normal 1.5-4.9 [facility] Comment on above: Result Comment: Refe rence rangeNonsmoker <1.5%Smoker <5.0%Heavy Smoker <9.0% Performed By: #### 4 [id number] ####[facility] Webderl[address] [place] [address] FIO2 BG 28 Invalid Interpretation Code [facility] Comment on above: Performed By: #### 4 [id number] ####[facility] [address] [place] [address] Flow 2 Invalid Interpretation Code [facility] Comment on above: Performed By: #### 4 [id number] ####[facility] Fphltsxsst196 [facility] [place] [facility] [place] [address] FMetHb Art 0.3 % Normal 0.0-1.9 [facility] Comment on above: Performed By: #### 4 [id number] ####[facility] [address] [place] [address] FO2Hb Art 93.7 % Normal 93.0-100.0 [facility] Comment on above: Performed By: #### 4 [id number] ####[place] [address] [place] [address] HCO3 (Bld) [Moles/Vol] 26.9 mmol/L High 22.0-26.[address] [facility] Comment on above: Performed By: #### 4 [id number] ####[address] [address] Hemoglobin (Bld) [Mass/Vol] 11.9 g/dL Low 12.0-17.0 [facility] Comment on above: Performed By: #### 4 [id number] ####[facility] Qismfhegxy982 [place] [address] Oxygen saturation in Blood 95.4 % Normal 95.0-100.0 [facility] Comment on above: Performed By: #### 4 [id number] ####[facility] Ixdmftzwlc[address] [place] [address] P CO2 Arterial 47.6 mmHg High 35.0-45.0 [facility] Comment on above: Performed By: #### 4 [id number] ####[facility] Zhioyhvp[address]653 [place] [address] P O2 Arterial 74.3 mmHg Low 80.0-100.0 [facility] Comment on above: Performed By: #### 4 [id number] ####[facility] [address] [place] [address] pH Arterial 7.387 Normal 7.350-7.450 [facility] Comment on above: Performed By: #### 4 [id number] ####[facility] [address] [place] [address] Sample Site R Radial Normal [facility] Comment on above: Performed By: #### 4 [id number] ####[place] [address] Sample Type Arterial Draw Normal [facility] Comment on above: Performed By: #### 4 [id number] ####[facility] [address] [place], [place] [address] CBC w/ Auto Diffon 3 Erythrocyte distribution width (RBC) [Ratio] 14.8 % High 10.9-14.2 [facility] Comment on above: Performed By: #### 1 2331358, 9968166, 1803452, 4435272, 63766669 ####[place] [address] Hematocrit (Bld) [Volume fraction] 37.3 % Low 37.7-49.0 [facility] Comment on above: Performed By: #### 1 9774703, 4271579, 4532696, 4637845, 90597198 ####[facility] [address] [place] [address] Hemoglobin (Bld) [Mass/Vol] 12.3 g/dL Low 13.5-17.5 [facility] Comment on above: Performed By: #### 1 9144119, 0590070, 3291193, 9454857, 92196679 ####[facility] [address] [place] 1550457 MCH (RBC) [Entitic mass] 28.3 pg Normal 27.0-34.0 [facility] Comment on above: Performed By: #### 1 7901369, 4779446, 1182830, 8083824, 40658035 ####[place] [place] [address] MCHC (RBC) [Mass/Vol] 33.0 g/dL Normal 31.4-36.0 [facility] Comment on above: Performed By: #### 1 8146490, 3763374, 7073396, 4823108, 72498573 ####[place] [place] [address] MCV (RBC) [Entitic vol] 85.9 fL Normal 80.0-100.0 [facility] Comment on above: Performed By: #### 1 2946708, 1246918, 4384749, 6428514, 20014921 ####[address] [address] Platelet mean volume (Bld) [Entitic vol] 10.4 fL Normal 6.4-10.8 [facility] Comment on above: Performed By: #### 1 2668018, 8565457, 3055553, 7760324, 13964908 ####[address] [address] Platelets (Bld) [#/Vol] 189.0 E9/L Normal 150.0-500.0 [facility] Comment on above: Performed By: #### 1 4519509, 3379525, 3118062, 6485152, 37748396 ####[place] [address] RBC (Bld) [#/Vol] 4.3 E12/L Normal 4.3-5.9 [facility] Comment on above: Performed By: #### 1 1448419, 4008363, 1954865, 1176735, 62968251 ####[address] [address] WBC corrected for nucl RBC Auto (Bld) [#/Vol] 7.1 E9/L Normal 4.0-11.0 [facility] Comment on above: Performed By: #### 1 2869921, 6044487, 8782175, 3163082, 85725990 ####[address] [address] CHEMISTRYOrdered By: SYSTEM SYSTEM on 11-28-2022 Troponin I.cardiac [Mass/Vol] 32.60 pg/mL Normal 15.90 - 38.40 pg/mL [facility] Remisol Troponin I.cardiac [Mass/Vol] 26.90 pg/mL Normal 15.90 - 38.40 pg/mL [facility] Remisol Consent for Treatmenton Consent for Treatment [id number] .00CD:127 Normal [facility] ED Note-Physicianon 11-29-19 ED Note-Physician Normal [facility] Comment on above: Result Comment: Elec tronically Signed By: Shane Pan DO\.br\Date and Time Signed: 11/28/22 18:32 EDT FT Blood GasesOrdered By: Sue Orozco on 11-28-2022 a/A Ratio Art 53.40 % Normal >=0.80% [facility] Resp Auto SS AaDO2 Art 64.9 mm[Hg] High 5.0 - 15.0 mmHg [facility] Resp Auto SS Allens Test Positive (11/28/22 6:55 PM) Normal [facility] Resp Auto SS Base Excess Arterial 2.9 mmol/L Normal >=2.8mmol/L [facility] C Resp Auto SS cCa2+ Art 4.88 mg/dL Normal 4.40 - 5.30 mg/dL [facility] Resp Auto SS cCl- Art 103.0 mmol/L Normal 101.0 - 111.0 mmol/L [facility] Resp Auto SS cGlu Art 98 mg/dL Normal 55 - 99 mg/dL FT Resp Auto SS cK+ Art 3.6 mmol/L Normal 3.5 - 5.3 mmol/L [facility] Resp Auto SS cLac Art 0.6 mmol/L Normal 0.5 - 2.2 mmol/L [facility] Resp Auto SS devulcanizer head+ Art 139.0 mmol/L Normal 135.0 - 145.0 [...] 26.9 mmol/L High 22.0 - 26.0 mmol/L [facility] Resp Auto SS Hemoglobin (Bld) [Mass/Vol] 11.9 g/dL Low 12.0 - 17.0 gm/dL [facility] Resp Auto SS P CO2 Arterial 47.6 mm[Hg] High 35.0 - 45.0 mmHg [facility] Resp Auto SS P O2 Arterial 74.3 mm[Hg] Low 80.0 - 100.0 mmHg [facility] Resp Auto SS pH Arterial 7.387 Normal 7.350 - 7.450 [facility] Resp Auto SS Sample Site R Radial (11/28/22 6:55 PM) Normal [facility] Resp Auto SS Sample Type Arterial Draw (11/28/22 6:55 PM) Normal [facility] Resp Auto SS HEMATOLOGYOrdered By: SYSTEM SYSTEM [...] 37.3 % Low 37.7 - 49.0 % FT HemeAutoSS Hemoglobin (Bld) [Mass/Vol] 12.3 g/dL Low 13.5 - 17.5 gm/dL FT HemeAutoSS MCH (RBC) [Entitic mass] 28.3 pg Normal 27. 0 - 34.0 pg FT HemeAutoSS MCHC (RBC) [Mass/Vol] 33.0 g/dL Normal 31.4 - 36.0 gm/dL FT HemeAutoSS MCV (RBC) [Entitic vol] 85.9 fL Normal 80.0 - 100.0 fL FT HemeAutoSS Platelet mean volume (Bld) [Entitic vol] 10.4 fL Normal 6.4 - 10.8 fL FT HemeAutoSS Platelets (Bld) [#/Vol] 189.0 E9/L Normal 150. 0 - 500.0 E9/L FT HemeAutoSS RBC (Bld) [#/Vol] 4.3 E12/L Normal 4.3 - 5.9 E12/L FT HemeAutoSS WBC corrected for nucl RBC Auto (Bld) [#/Vol] 7.1 E9/L Normal 4.0 - 11.0 E9/L [facility] HemeAutoSS Pre-Arrival Noteon 3 Pre-Arrival Note Normal [facility] Troponin 0 Hr.on 11-28-2022 Troponin I.cardiac [Mass/Vol] 21.80 pg/mL Normal 15.90-38.40 [facility] Comment on above: Result Comment: The 95% CI (Confidence Interval) PPV (Positive Predictive Value) for myocardial infarction in females is 38 pg/mL, in males 51 pg/mL. The results should be used in conjunction with clinical conditions of myocardial infarction.(Access High Sensitivity Troponin I Instructions For Use, Claudia Luis, December 2017) Performed By: #### 1 [id number], 3169142, 2022286, 4901887, 30141103 ####[facility] [address] [place] [address] Troponin 3 Hr.on 11-28-2022 Troponin I.cardiac [Mass/Vol] 26.90 pg/mL Normal 15.90-38.40 [facility] Comment on above: Result Comment: The 95% CI (Confidence Interval) PPV (Positive Predictive Value) for myocardial infarction in females is 38 pg/mL, in males 51 pg/mL. The results should be used in conjunction with clinical conditions of myocardial infarction.(Access High Sensitivity Troponin I Instructions For Use, Claudia Warwick, December 2017) Performed By: #### 1 [id number] ####[facility] [address] [place] [address] UA With Cult Reflexon 2022 Crystals LM Ql (Urine sed) Present Normal [facility] Comment on above: Performed By: #### 1 1370067 ####[facility] [address] [place] [address] Epithelial cells.squamous LM.HPF (Urine sed) [#/Area] 0-2 Normal 0-2 [facility] Comment on above: Performed By: #### 1 1081776 ####[facility] [address]ral[address] [place] [address] [place].plasma/[place].R BC (Bld) [Mass ratio] 0-3 Normal 0-3 [facility] Comment on above: Performed By: #### 1 8156846 ####[facility] [address] [place] [address] Mucus Ql (Urine sed) TRACE Normal Fish [facility] Comment on above: Performed By: #### 1 [id number] ####[facility] [address] [place] [address] WBC LM.HPF (Urine sed) [#/Area] 0-5 Normal 0-5 [facility] Comment on above: Performed By: #### 1 0658252 ####[facility] [address] [place] [address] Bilirubin Ql (U) Negative Normal Negative [facility] Comment on above: Performed By: #### 1 4972162 ####[facility] [address] [place] [address] Clarity (U) CLEAR Normal Clear [facility] Comment on above: Performed By: #### 1 2143984 ####[facility] [address] [place] [address] Color (U) YELLOW Normal Yellow [facility] Comment on above: Performed By: #### 1 6651483 ####[facility] [address] [place] [address] Glucose Test strip (U) [Mass/Vol] Negative Normal Negative [facility] Comment on above: Performed By: #### 1 3013332 ####[facility] [address] [place] [address] Hemoglobin Ql (U) Negative Normal Negative [facility] Comment on above: Performed By: #### 1 3389554 ####[address] [address] Ketones (U) [Mass/Vol] Negative Normal Negative [facility] Comment on above: Performed By: #### 1 0275268 ####[facility] [address] [place] [address] Nitrite Ql (U) Negative Normal Negative [facility] Comment on above: Performed By: #### 1 7810555 ####[facility] [address] [place] [address] pH (U) 6.0 [pH] Invalid Interpretation Code 5.0-9.0 [facility] Comment on above: Performed By: #### 1 7504117 ####[facility] [address] [place] [address] Protein (U) [Mass/Vol] 2+ Abnormal Negative [facility] Comment on above: Performed By: #### 1 7664005 ####[place] [address] [place] [address] Specific gravity (U) [Rel density] 1.025 Invalid Interpretation Code 1.005-1.030 [facility] Comment on above: Performed By: #### 1 [id number] ####[address] [address] Type of Urine collection method Clean Catch Normal [facility] Comment on above: Performed By: #### 1 0350952 ####[facility] [address] [place] [address] Urobilinogen Qn (U) 0.2 {Lei'U}/dL Normal 0.0-1.0 [facility] Comment on above: Performed By: #### 1 9879625 ####[facility] [address] [place] [address] WBC Auto Ql (U) Negative Normal Negative [facility] Comment on above: Performed By: #### 1 1243769 ####[facility] [address] [place] [address] URINALYSISOrdered By: Emily Suero on 11-28-2022 Bilirubin [...] PM) Normal Negative [facility] UA Auto SS [place].plasma/[place].R BC (Bld) [Mass ratio] 0-3 /HPF Normal [...] Desc Clean Catch (11/28/22 5:55 PM) Normal FT UA Auto SS Urobilinogen Qn (U) 0.5854785 {Lei'U}/dL Normal 0.0 - 1.0 EU/dL FT UA Auto SS WBC Auto Ql (U) Negative (11/28/22 5:55 PM) Normal Negative [facility] UA Auto SS WBC LM.HPF (Urine sed) [#/Area] 0-5 /HPF Normal 0-5/HPF [facility] UA Auto SS XR Chest Single Viewon 11-28 XR Chest Single View Normal [facility] eGFRon 11-28-2022 GFR/1.73 sq M.predicted among non-blacks MDRD (S/P/Bld) [Vol rate/Area] 77 mL/min/1.73 m2 Normal >=59 [facility] Comment on above: Order Comment: Order added by Discern Expert. Result Comment: Bilingual Office Assistant earnest kidney disease could be indicated at eGFR's of less than 60 mL/min/1.73m2. Kidney failure is indicated at less than 15 mL/min/1.73m2. Performed By: #### 1 0944290, 3037753, 9742387, 9400438, 97167758 ####[facility] [address] [place] [address] CHEMISTRYOrdered By: SYSTEM SYSTEM on 11-26-2022 Albumin [...] 87 mL/min/1.73 m2 Normal >=59mL/min/ 1.73 m2 [facility] Chem S Globulin (S) [Mass/Vol] 3.2 g/dL [...] Triglyceride [Mass/Vol] 69 mg/dL Normal <=149mg/dL F [facility] Remisol TSH Qn 2.07 m[IU]/L Normal 0.34 - 5.60 mcIU/mL [facility] Remisol Urea nitrogen [Mass/Vol] 18 mg/dL Normal 5 - 21 mg/dL [facility] Remisol Urea nitrogen/Creatinine [Mass ratio] 20 mg/mg Normal 10 - 20 [facility] Remisol CMPon 11-26-2022 Albumin [Mass/Vol] 3.7 g/dL Normal 3.3-5.0 [facility] Comment on above: Performed By: #### 2 213732, 4407241, 74693327, 7670239 ####[facility] [address] [place] [address] Albumin/Globulin (S) [Mass conc ratio] 1.2 Normal 1.1-2.2 [facility] Comment on above: Performed By: #### 2 860920, 9619910, 63719920, 8999430 ####[facility] [address] [place] [address] ALP [Catalytic activity/Vol] 38 Int._Unit/L Normal 21-98 [facility] Comment on above: Performed By: #### 2 570571, 7353178, 59441710, 6200744 ####[facility] [address] [place] [address] ALT No additional P-5'-P [Catalytic activity/Vol] 11 Int._Unit/L Normal 6-46 [facility] Comment on above: Performed By: #### 2 833582, 4596414, 48687929, 7007334 ####[facility] [address] [place] [address] Anion gap [Moles/Vol] 14 mmol/L Normal 6-16 [facility] Comment on above: Performed By: #### 2 326392, 7900631, 65444749, 7339823 ####[facility] [address] [place] [address] AST [Catalytic activity/Vol] 15 Int._Unit/L Normal 5-43 [facility] Comment on above: Performed By: #### 2 489781, 7776122, 32542307, 7467891 ####[facility] [address] [place] [address] Bilirubin [Mass/Vol] 1.0 mg/dL Normal 0.0-1.1 [facility] Comment on above: Performed By: #### 2 897127, 5422799, 32749381, 9316756 ####[facility] [address] [place] [address] Calcium [Mass/Vol] 9.2 mg/dL Normal 8.9-11.1 [facility] Comment on above: Performed By: #### 2 356305, 6414136, 74252174, 4271979 ####[facility] [address] [place] [address] Chloride [Moles/Vol] 107 mmol/L Normal 101-111 [facility] Comment on above: Performed By: #### 2 348850, 3967069, 26791323, 8687230 ####[facility] [address] [place] [address] CO2 [Moles/Vol] 28 mmol/L Normal 21-31 [facility] Comment on above: Performed By: #### 2 810250, 4948143, 25880110, 9175333 ####[facility] [address] [place] [address] Creatinine [Mass/Vol] 0.9 mg/dL Normal 0.5-1.3 [facility] Comment on above: Performed By: #### 2 956210, 5218909, 47986666, 4409092 ####[facility] [address] [place] [address] Globulin (S) [Mass/Vol] 3.2 g/dL Normal 1.4-4.0 [facility] Comment on above: Performed By: #### 2 115849, 3782697, 14661613, 3241409 ####[facility] [address] [place] [address] Glucose [Mass/Vol] 95 mg/dL Normal 55-199 [facility] Comment on above: Result Comment: If t his glucose result represents a fasting glucose, interpretation should refer to the following reference range: 55-99 mg/dL Performed By: #### 2 519073, 1671318, 19438242, 2636426 ####[facility] [address] [place] [address] Potassium [Moles/Vol] 4.2 mmol/L Normal 3.5-5.3 [facility] Comment on above: Performed By: #### 2 824424, 0081531, 19986645, 7814928 ####[facility] [address] [place] [address] Protein [Mass/Vol] 6.9 g/dL Normal 6.0-7.8 [facility] Comment on above: Performed By: #### 2 378569, 6759274, 10180993, 8539974 ####[facility] [address] [place] [address] Sodium [Moles/Vol] 145 mmol/L Normal 135-145 [facility] Comment on above: Performed By: #### 2 796661, 1622406, 19095765, 7043123 ####[facility] [address] [place] [address] Urea nitrogen [Mass/Vol] 18 mg/dL Normal 5-21 [facility] Comment on above: Performed By: #### 2 996030, 7962221, 08555580, 2120154 ####[facility] [address] [place] [address] Urea nitrogen/Creatinine [Mass ratio] 20 No Units Normal 10-20 [facility] Comment on above: Performed By: #### 2 937817, 9200445, 65674773, 4536242 ####[facility] [address] [place] [address] Consent for Treatmenton 0 Consent for Treatment [id number] [facility] [id number]#1 .00CD:127 Normal [facility] Lipid Panelon 11-26-2022 Cholesterol [Mass/Vol] 112 mg/dL Low 120-200 Fi [facility] Comment on above: Performed By: #### 2 303337, 7598777, 87848341, 3304135 ####[facility] [address] [place] [address] Cholesterol in HDL [Mass/Vol] 49 mg/dL Invalid Interpretation Code [facility] Comment on above: Result Comment: HDL > or equal to 60 mg/dL: Low cardiovascular riskHDL < 40 mg/dL : High cardiovascular risk Performed By: #### 2 488702, 6508202, 36126072, 8087854 ####[facility] [address] [place] [address] Cholesterol in LDL [Mass/Vol] 42 mg/dL Normal <=129 [facility] Comment on above: Performed By: #### 2 092447, 0013080, 74677914, 9706815 ####[facility] [address]Norcl[address] [place] [address] Cholesterol in VLDL [Mass/Vol] 14 mg/dL Normal 7-40 [facility] Comment on above: Performed By: #### 2 695033, 2797546, 08145110, 2605888 ####[facility] [address] [place] [address] Triglyceride [Mass/Vol] 69 mg/dL Normal <=149 [facility] Comment on above: Performed By: #### 2 142624, 6543882, 87093198, 7770955 ####[facility] [address]Norcl[facility] [place] [address] Physician Orderon 11-26-2022 Physician Order [id number]# 1.00CD:127 Normal [facility] TSHon 11-26-2022 TSH Qn 2.07 m[IU]/L Normal 0.34-5.60 [facility] Comment on above: Performed By: #### 2 849233, 5401198, 94662943, 3406704 ####[facility] [address] [place] [address] eGFRon 11-26-2022 GFR/1.73 sq M.predicted among non-blacks MDRD (S/P/Bld) [Vol rate/Area] 87 mL/min/1.73 m2 Normal >=59 [facility] Comment on above: Order Comment: Order added by Discern Expert. Result Comment: Bilingual Office Assistant earnest kidney disease could be indicated at eGFR's of less than 60 mL/min/1.73m2. Kidney failure is indicated at less than 15 mL/min/1.73m2. Performed By: #### 2 436222, 0917449, 09866944, 7813485 ####[facility] [address] [place] [address] Discharge Instructionson Discharge Instructions [id number] .00CD:127 Normal [facility] Transfer Documentson 023 Transfer Documents [id number] .00CD:127 Normal [facility] Capillary Glucose POCon Glucose [Mass/Vol] 166 mg/dL High 55-99 [facility] Comment on above: Result Comment: Gareth guerrero RN/ Performed By: #### 2 [id number] ####[facility] [address] [place] [address] Glucose [Mass/Vol] 119 mg/dL High 55-99 [facility] Comment on above: Result Comment: Repe at Test Performed By: #### 2 98847708 ####[facility] [address] [place] [address] Discharge Note-Nursingon Discharge Note-Nursing Normal Fi [facility] XjtU2ktz 09-28-2022 HbA1c (Bld) [Mass fraction] 6.4 % High <=5.9 [facility] Comment on above: Order Comment: IF UN ABLE TO ADD TO ED LABS Performed By: #### 2 410220, [id number] ####[facility] [address] [place] [address] Inpatient Clinical Summaryon 09-28-2022 Inpatient Clinical Summary Normal [facility] Inpatient Patient Summaryon 09-28-2022 Inpatient Patient Summary Normal [facility] Inpatient Patient Summary Normal [facility] Interdisciplinary Note - Santosh e Manageron 09-28-2022 Interdisciplinary Note - Television Camera Operator Normal [facility] Comment on above: Result Comment: Elec tronically Signed By: Jose HAYDEN, Norma\.br\Date and Time Signed: 09/28/22 15:54 EDT Monitor Recordon 09-28-2022 Monitor Record [id number]# 1.00CD:127 Normal [facility] Capillary Glucose POCon Glucose [Mass/Vol] 192 mg/dL High 55-99 [facility] Comment on above: Result Comment: Gareth GARDINER Performed By: #### 2 [id number] ####[facility] [address] [place] [address] Glucose [Mass/Vol] 130 mg/dL High 55-99 [facility] Comment on above: Result Comment: No C overage Given Performed By: #### 2 [id number] ####[facility] [address] [place] [address] Glucose [Mass/Vol] 202 mg/dL High 55-99 [facility] Comment on above: Result Comment: Gareth GARDINER Performed By: #### 2 [id number] ####[facility] [address] [place] [address] Glucose [Mass/Vol] 89 mg/dL Normal 55-99 [facility] Comment on above: Result Comment: Gareth GARDINER Performed By: #### 2 [id number] ####[facility] [address] [place] [address] Insurance Correspondence Off iceon 09-27-2022 Insurance Correspondence Office [id number]# 1.00CD:127 Normal [facility] Interdisciplinary Note - Santosh e Manageron 09-27-2022 Interdisciplinary Note - Television Camera Operator [facility] Comment on above: Result Comment: Elec tronically Signed By: Natalie Grant\Date and Time Signed: 09/27/22 14:56 EDT Interdisciplinary Note - PTo n 09-27-2022 Interdisciplinary Note - PT Pt is safe and indep w/bed mobility, transfers and gait w/FWW. Pt uses FWW at home; he is at his baseline. NO PT needs at this time. No needs anticipated upon d/c home. AM-PAC Normal [facility] Lyteson 09-27-2022 Anion gap [Moles/Vol] 9 mmol/L Normal 6-16 [facility] Comment on above: Performed By: #### 2 [id number], [id number] ####[facility] [address] [place] [address] Chloride [Moles/Vol] 105 mmol/L Normal 101-111 [facility] Comment on above: Performed By: #### 2 525514, [id number] ####[facility] [address] [place] [address] CO2 [Moles/Vol] 26 mmol/L Normal 21-31 [facility] Comment on above: Performed By: #### 2 931414, [id number] ####[facility] [address] [place] [address] Potassium [Moles/Vol] 4.2 mmol/L Normal 3.5-5.3 [facility] Comment on above: Performed By: #### 2 244900, [id number] ####[facility] [address] [place] [address] Sodium [Moles/Vol] 136 mmol/L Normal 135-145 [facility] Comment on above: Performed By: #### 2 523230, [id number] ####[facility] [address] [place] [address] Monitor Recordon 09-27-2022 Monitor Record [id number]# 1.00CD:127 Normal [facility] Monitor Record [id number]# 1.00CD:127 Normal [facility] Progress Note-Nurseon 2022 Progress Note-Nurse Normal [facility] Progress Note-Physicianon Progress Note-Physician Normal [facility] Comment on above: Result Comment: Elec tronically Signed By: Adeline COLEMAN\.br\Date and Time Signed: 09/27/22 15:34 EDT\.br\Electronically Co-Signed By: Adeline COLEMAN\.br\Date and Time Co-Signed: 09/27/22 15:37 EDT\.br\Electronically Co-Signed By: Ganesh Minaya MD\.br\Date and Time Co-Signed: 09/27/22 18:58 EDT Auto Diffon 09-26-2022 Basophils/100 WBC (Bld) 0.5 % Normal 0.0-2.[address] [facility] Comment on above: Order Comment: Order Added by Discern Expert. Performed By: #### 1 [id number], 7466852, 5502113, 5578258 ####[facility] [address] [place] [address] Basophils/Leukocytes Auto (Bld) [Pure # fraction] 0.0 E9/L Normal 0.0-0.2 [facility] Comment on above: Order Comment: Order Added by Discern Expert. Performed By: #### 1 6901669, 3800585, 2622152, 8496360 ####[facility] [address] [place] [address] Eosinophils/100 WBC (Bld) 3.3 % Normal 0.0-8.0 [facility] Comment on above: Order Comment: Order Added by Discern Expert. Performed By: #### 1 5226860, 3244227, 3983979, 1608802 ####[facility] [address] [place] [address] Eosinophils/Leukocytes Auto (Bld) [Pure # fraction] 0.3 E9/L Normal 0.0-0.5 [facility] Comment on above: Order Comment: Order Added by Discern Expert. Performed By: #### 1 5200787, 8592668, 5195718, 2978380 ####[address] [address] Lymphocytes/100 WBC (Bld) 9.5 % Low 14.0-50.0 [facility] Comment on above: Order Comment: Order Added by Discern Expert. Performed By: #### 1 1722515, 1695858, 7305924, 4556158 ####[address] [address] Lymphocytes/Leukocytes Auto (Bld) [Pure # fraction] 0.8 E9/L Low 1.0-4.0 [facility] Comment on above: Order Comment: Order Added by Discern Expert. Performed By: #### 1 6137128, 6100311, 9141892, 0760994 ####[address] [address] Monocytes/100 WBC (Bld) 7.2 % Normal 4.0-14.[address] [facility] Comment on above: Order Comment: Order Added by Discern Expert. Performed By: #### 1 2029102, 9694670, 2472261, 0060955 ####[address] [address] Monocytes/Leukocytes Auto (Bld) [Pure # fraction] 0.6 E9/L Normal 0.2-1.0 [facility] Comment on above: Order Comment: Order Added by Bethany Expert. Performed By: #### 1 4225522, 6046475, 8545148, 2632424 ####[address] [address] Neutrophils/100 WBC (Bld) 79.5 % High 36.0-75.0 [facility] Comment on above: Order Comment: Order Added by Discern Expert. Performed By: #### 1 3795644, 5632509, 1701087, 6556221 ####[facility] [address] [place] [address] Neutrophils/Leukocytes Auto (Bld) [Pure # fraction] 6.7 E9/L Normal 2.0-7.5 [facility] Comment on above: Order Comment: Order Added by Discern Expert. Performed By: #### 1 4783768, 8238972, 9187817, 7211579 ####[facility] [address] [place] [address] BMPon 09-26-2022 Creatinine [Mass/Vol] 1.0 mg/dL Normal 0.5-1.3 [facility] Comment on above: Performed By: #### 1 6207098, 7300875, 9252636, 6564141 ####[facility] [address] [place] [address] Urea nitrogen [Mass/Vol] 25 mg/dL High 5-21 [facility] Comment on above: Performed By: #### 1 3169280, 5930960, 8884487, 0824718 ####[facility] [address] [place] [address] Urea nitrogen/Creatinine [Mass ratio] 25 No Units High 10-20 [facility] Comment on above: Performed By: #### 1 8391702, 5970057, 2235491, 3088439 ####[facility] [address] [place] [address] Anion gap [Moles/Vol] 10 mmol/L Normal 6-16 [facility] Comment on above: Performed By: #### 1 6790453, 0874419, 1224151, 3728382 ####[facility] [address] [place] [address] Calcium [Mass/Vol] 8.9 mg/dL Normal 8.9-11.1 [facility] Comment on above: Performed By: #### 1 2742194, 8266828, 2076014, 9460419 ####[facility] [address] [place] [address] Chloride [Moles/Vol] 101 mmol/L Normal 101-111 [facility] Comment on above: Performed By: #### 1 7940420, 7891030, 1628745, 9722115 ####[facility] [address] [place] [address] CO2 [Moles/Vol] 26 mmol/L Normal 21-31 [facility] Comment on above: Performed By: #### 1 5723616, 2112053, 7740071, 5409701 ####[facility] [address] [place] [address] Glucose [Mass/Vol] 112 mg/dL Normal 55-199 [facility] Comment on above: Result Comment: If t his glucose result represents a fasting glucose, interpretation should refer to the following reference range: 55-99 mg/dL Performed By: #### 1 2370895, 3137542, 8691117, 8170643 ####[address] [address] Potassium [Moles/Vol] 4.1 mmol/L Normal 3.5-5.3 [facility] Comment on above: Performed By: #### 1 4979874, 7277981, 4689857, 9263918 ####[facility] [address] [place] [address] Sodium [Moles/Vol] 133 mmol/L Low 135-145 [facility] Comment on above: Performed By: #### 1 4840407, 7166355, 4103526, 0925266 ####[facility] [address] [place] [address] CBC w/ Auto Diffon 3 Erythrocyte distribution width (RBC) [Ratio] 14.6 % High 10.9-14.2 [facility] Comment on above: Performed By: #### 1 9850327, 1662667, 8579919, 1474585 ####[facility] [address] [place] [address] Hematocrit (Bld) [Volume fraction] 37.6 % Low 37.7-49.0 [facility] Comment on above: Performed By: #### 1 7641260, 4535544, 2198798, 3150451 ####[facility] [address] [place] [address] Hemoglobin (Bld) [Mass/Vol] 12.5 g/dL Low 13.5-17.5 [facility] Comment on above: Performed By: #### 1 6095394, 7009779, 8175866, 1598288 ####[place] [address] MCH (RBC) [Entitic mass] 28.5 pg Normal 27.0-34.0 [facility] Comment on above: Performed By: #### 1 4053502, 8321065, 9890184, 4180905 ####[place] [address] MCHC (RBC) [Mass/Vol] 33.2 g/dL Normal 31.4-36.0 [facility] Comment on above: Performed By: #### 1 1499997, 3957603, 1898333, 8694936 ####[address] [address] MCV (RBC) [Entitic vol] 85.8 fL Normal 80.0-100.0 [facility] Comment on above: Performed By: #### 1 6681913, 7095963, 0986272, 5956331 ####[address] [address] Platelet mean volume (Bld) [Entitic vol] 10.3 fL Normal 6.4-10.8 [facility] Comment on above: Performed By: #### 1 5619335, 6934027, 4597381, 3742849 ####[address] [address] Platelets (Bld) [#/Vol] 164.0 E9/L Normal 150.0-500.0 [facility] Comment on above: Performed By: #### 1 7215708, 6475208, 7027856, 4406308 ####[facility] [address] [place] [address] RBC (Bld) [#/Vol] 4.4 E12/L Normal 4.3-5.9 [facility] Comment on above: Performed By: #### 1 8347780, 7511892, 3810249, 2298527 ####[facility] [address] [place] [address] WBC corrected for nucl RBC Auto (Bld) [#/Vol] 8.4 E9/L Normal 4.0-11.0 [facility] Comment on above: Performed By: #### 1 0275981, 5828032, 4406681, 0910653 ####[facility] [address] [place] [address] Capillary Glucose POCon Glucose [Mass/Vol] 161 mg/dL High 55-99 [facility] Comment on above: Result Comment: Gareth guerrero RN/ Performed By: #### 2 04660237 ####[facility] [address] [place] [address] Consent for Treatmenton Consent for Treatment [id number]#1 .00CD:127 Normal [facility] ED Clinical Summaryon 2022 ED Clinical Summary Normal [facility] ED Note-Physicianon 09-27-19 ED Note-Physician Normal [facility] Comment on above: Result Comment: Elec tronically Signed By: Shane Pan DO\.br\Date and Time Signed: 09/26/22 16:06 EDT ED Patient Education Noteon 09-26-2022 ED Patient Education Note Normal [facility] ED Patient Summaryon 023 ED Patient Summary Normal [facility] EMS Documentationon 09-27-19 EMS Documentation Normal [facility] EMS Documentation Normal [facility] Pre-Arrival Noteon Pre-Arrival Note Normal [facility] Progress Noteson 09-26-2022 Artificial Limb Fitter Authentication Interface Message Text EMERGENCY TRIAGE, TREAT AND TRANSPORT (ET3) DOCUMENTATION OF TELEHEALTH VISIT Date / Time: 09/26/2022929 Name: Clyde Humphrey : 1945 SSN: [id number] EMS Agency: [facility] [x] Verbal consent obtained [] Implied [...] Completed by: Coby Lugo MD Normal [employer] UA With Cult Reflexon 2022 Bilirubin Ql (U) Negative Normal Negative [facility] Comment on above: Order Comment: can s traight cath if needed. Performed By: #### 1 6428034 ####[facility] [address] [place] [address] Clarity (U) CLEAR Normal Clear [facility] Comment on above: Order Comment: can s traight cath if needed. Performed By: #### 1 5146863 ####[facility] [address] [place] [address] Color (U) YELLOW Normal Yellow [facility] Comment on above: Order Comment: can s traight cath if needed. Performed By: #### 1 3179713 ####[facility] [address] [place] [address] Epithelial cells.squamous LM.HPF (Urine sed) [#/Area] 0-2 Normal 0-2 [facility] Comment on above: Order Comment: can s traight cath if needed. Performed By: #### 1 7214496 ####[facility] [address] [place] [address] Glucose Test strip (U) [Mass/Vol] Negative Normal Negative [facility] Comment on above: Order Comment: can s traight cath if needed. Performed By: #### 1 3012801 ####[facility] [address] [place] [address] Hemoglobin Ql (U) Negative Normal Negative [facility] Comment on above: Order Comment: can s traight cath if needed. Performed By: #### 1 3531173 ####[facility] [address] [place] [address] Ketones (U) [Mass/Vol] Negative Normal Negative [facility] Comment on above: Order Comment: can s traight cath if needed. Performed By: #### 1 3778414 ####[facility] [address] [place] [address] [place].plasma/[place].R BC (Bld) [Mass ratio] 0-3 Normal 0-3 [facility] Comment on above: Order Comment: can s traight cath if needed. Performed By: #### 1 7011886 ####[facility] [address] [place] [address] Nitrite Ql (U) Negative Normal Negative [facility] Comment on above: Order Comment: can s traight cath if needed. Performed By: #### 1 4984193 ####[facility] [address] [place] [address] pH (U) 5.5 [pH] Invalid Interpretation Code 5.0-9.0 [facility] Comment on above: Order Comment: can s traight cath if needed. Performed By: #### 1 0994140 ####[facility] [address] [place] [address] Protein (U) [Mass/Vol] Negative Normal Negative [facility] Comment on above: Order Comment: can s traight cath if needed. Performed By: #### 1 2891744 ####[facility] [address] [place] [address] Specific gravity (U) [Rel density] 1.025 Invalid Interpretation Code 1.005-1.030 [facility] Comment on above: Order Comment: can s traight cath if needed. Performed By: #### 1 1556677 ####[facility] [address] [place] [address] Type of Urine collection method Clean Catch Normal [facility] Comment on above: Order Comment: can s traight cath if needed. Performed By: #### 1 6814180 ####[address] [address] Urobilinogen Qn (U) 1.0 {Lei'U}/dL Normal 0.0-1.0 [facility] Comment on above: Order Comment: can s traight cath if needed. Performed By: #### 1 0056118 ####[facility] [address] [place] [address] WBC Auto Ql (U) Negative Normal Negative [facility] Comment on above: Order Comment: can s traight cath if needed. Performed By: #### 1 1488270 ####[facility] [address] [place] [address] WBC LM.HPF (Urine sed) [#/Area] 0-5 Normal 0-5 [facility] Comment on above: Order Comment: can s traight cath if needed. Performed By: #### 1 8357425 ####[facility] [address] [place] [address] XR Chest Single Viewon 09-26 XR Chest Single View Normal [facility] eGFRon 09-26-2022 GFR/1.73 sq M.predicted among non-blacks MDRD (S/P/Bld) [Vol rate/Area] 77 mL/min/1.73 m2 Normal >=59 [facility] Comment on above: Order Comment: Order added by Discern Expert. Result Comment: Bilingual Office Assistant earnest kidney disease could be indicated at eGFR's of less than 60 mL/min/1.73m2. Kidney failure is indicated at less than 15 mL/min/1.73m2. Performed By: #### 1 6848585, 0901095, 9801195, 9862348 ####[facility] [address] [place] [address] Progress Noteson 09-07-2022 Artificial Limb Fitter Authentication Interface Message Text EMERGENCY TRIAGE, TREAT AND TRANSPORT (ET3) DOCUMENTATION OF TELEHEALTH VISIT Date / Time: 09/06/20222146 Name: Clyde Humphrey : 1945 SSN: [id number] EMS Agency: [facility] [x] Verbal consent obtained [] Implied [...] Completed by: Marcelino Echavarria MD Normal [facility] Q - CULTURE,URINE,ROUTINEon 06-23-2021 CULTURE, URINE, ROUTINE SEE NOTE Normal [facility] Comment on above: Order Comment: [facility] Testing performed at: [facility], [address] [place] [address], [address] [place] [address], [phone], Health Services Manager: Archie Sinha MD [facility] Collection Date/Time: [id number] [facility] Results Received Date/Time: [id number] [facility] Reported Date/Time: [id number] Result Comment: CULT URE, URINE, ROUTINE Micro Number: [id number] Test Status: Final Specimen Source: Urine Specimen Quality: Adequate Result: Mixed genital alvin isolated. These superficial bacteria are not indicative of a urinary tract infection. No further organism identification is warranted on this specimen. If clinically indicated, recollect clean-catch, mid-stream urine and transfer immediately to Urine Culture Transport Tube. Performed By: #### 6 304R #### [facility] Default [address] [place] [address] Q - CULTURE,URINE,ROUTINEon 05-05-2021 CULTURE, URINE, ROUTINE SEE NOTE Normal N [facility] Comment on above: Order Comment: [facility] performed at: [facility], [address] [place] [address], [address] [place] [address], [phone], Health Services Manager: Archie Sinha MD [facility] Collection Date/Time: [id number] [facility] Results Received Date/Time: [id number] [facility] Reported Date/Time: [id number] Result Comment: CULT URE, URINE, ROUTINE Micro Number: [id number] Test Status: Final Specimen Source: Urine Specimen Quality: Adequate Result: Growth of mixed alvin was isolated, suggesting probable contamination. No further testing will be performed. If clinically indicated, recollection using a method to minimize contamination, with prompt transfer to Urine Culture Transport Tube, is recommended. Performed By: #### 6 304R #### [facility] Default [address] [place] [address] Vital Signs Date Time Vital Sign Value Performing Clinician Facility 01-24-2023 10:00-0400 Hourly Rounding Mbanefo OJUKWU [facility] 01-24-2023 10:00-0400 Promise to Return Mbanefo OJUKWU [facility] 01-24-2023 09:00-0400 Hourly Rounding Mbanefo OJUKWU [facility] 01-24-2023 09:00-0400 Promise to Return Mbanefo OJUKWU [facility] 01-24-2023 08:29-0400 Diastolic blood pressure 73 mm[Hg] Mbanefo OJUKWU [facility] 01-24-2023 08:29-0400 Systolic blood pressure 157 mm[Hg] Mbanefo OJUKWU [facility] 01-24-2023 08:27-0400 Blood Pressure Location Mbanefo OJUKWU [facility] 01-24-2023 08:27-0400 Body temperature 97.7 [degF] Mbanefo OJUKWU [facility] 01-24-2023 08:27-0400 Diastolic blood pressure 73 mm[Hg] Mbanefo OJUKWU [facility] 01-24-2023 08:27-0400 Heart rate 82 /min Mbanefo OJUKWU [facility] 01-24-2023 08:27-0400 Respiratory rate 16 /min Mbanefo OJUKWU [facility] 01-24-2023 08:27-0400 Systolic blood pressure 157 mm[Hg] Mbanefo OJUKWU [facility] 01-24-2023 08:00-0400 Hourly Rounding Mbanefo OJUKWU [facility] 01-24-2023 08:00-0400 Promise to Return Mbanefo OJUKWU [facility] 01-24-2023 00:05-0400 Blood Pressure Location Mbanefo OJUKWU [facility] 01-24-2023 00:05-0400 Body temperature 97.7 [degF] Mbanefo OJUKWU [facility] 01-24-2023 00:05-0400 Diastolic blood pressure 76 mm[Hg] Mbanefo OJUKWU [facility] 01-24-2023 00:05-0400 Heart rate 83 /min Mbanefo OJUKWU [facility] 01-24-2023 00:05-0400 Mean blood pressure 99 mm[Hg] Mbanefo OJUKWU [facility] 01-24-2023 00:05-0400 SaO2% (BldA) [Mass fraction] 97 % Mbanefo OJUKWU [facility] 01-24-2023 00:05-0400 Systolic blood pressure 144 mm[Hg] Mbanefo OJUKWU [facility] 01-23-2023 19:36-0400 Heart rate 81 /min Mbanefo OJUKWU [facility] 01-23-2023 19:36-0400 SaO2% (BldA) [Mass fraction] 96 % Mbanefo OJUKWU [facility] 01-23-2023 19:36-0400 Body temperature 97.34 [degF] Mbanefo OJUKWU [facility] 01-23-2023 19:34-0400 Mean blood pressure 83 mm[Hg] Mbanefo OJUKWU [facility] 01-23-2023 13:00-0400 Body temperature 98.06 [degF] Mbanefo OJUKWU [facility] 01-23-2023 06:55-0400 Blood Pressure Location Mbanefo OJUKWU [facility] 01-23-2023 06:55-0400 Mean blood pressure 89 mm[Hg] Mbanefo OJUKWU [facility] 01-23-2023 06:55-0400 Respiratory rate 16 /min Mbanefo OJUKWU [facility] 01-23-2023 06:55-0400 SaO2% (BldA) [Mass fraction] 93 % Mbanefo OJUKWU [facility] 01-22-2023 23:00-0400 Body temperature 97.88 [degF] Mbanefo OJUKWU [facility] 01-22-2023 23:00-0400 Mean blood pressure 82 mm[Hg] Mbanefo OJUKWU [facility] 01-22-2023 23:00-0400 Respiratory rate 18 /min Mbanefo OJUKWU [facility] 01-22-2023 18:37-0400 Body temperature 97.52 [degF] Mbanefo OJUKWU [facility] 01-22-2023 18:36-0400 Mean blood pressure 81 mm[Hg] Mbanefo OJUKWU [facility] 01-22-2023 16:09-0400 Mean blood pressure 81 mm[Hg] Mbanefo OJUKWU [facility] 01-22-2023 16:07-0400 Body temperature 97.52 [degF] Mbanefo OJUKWU [facility] 01-22-2023 04:50-0400 Heart rate 77 /min Mbanefo OJUKWU [facility] 01-21-2023 21:09-0400 Heart rate 85 /min Mbanefo OJUKWU [facility] 01-21-2023 15:11-0400 Heart rate 78 /min Mbanefo OJUKWU [facility] 12-20-2022 09:37-0400 Hourly Rounding Maycol CAGLE [facility] 12-20-2022 09:37-0400 Promise to Return Maycolyasmine ARRIOLASLIN [facility] 12-20-2022 09:06-0400 Heart rate 65 /min Maycolyasmine ARRIOLASLIN [facility] 12-20-2022 09:06-0400 Respiratory rate 20 /min Maycolyasmine ARRIOLASLIN [facility] 12-20-2022 09:06-0400 SaO2% (BldA) [Mass fraction] 92 % Maycol TSERING [facility] 12-20-2022 08:56-0400 Heart rate 61 /min Maycol TSERING [facility] 12-20-2022 08:56-0400 Respiratory rate 20 /min Maycol TSERING [facility] 12-20-2022 08:56-0400 SaO2% (BldA) [Mass fraction] 92 % Maycol TSERING [facility] 12-20-2022 08:51-0400 Hourly Rounding Maycol TSERING [facility] 12-20-2022 08:51-0400 Promise to Return Maycol TSERING [facility] 12-20-2022 08:50-0400 Hourly Rounding Maycolyasmine ARRIOLASLIN [facility] 12-20-2022 08:31-0400 Promise to Return Maycol TSERING [facility] [facility] [place] 12-20-2022 07:29-0400 Heart rate 60 /min Maycol TSERING [facility] [place] 12-20-2022 07:29-0400 SaO2% (BldA) [Mass fraction] 93 % Maycol TSERING [facility] [place] 12-20-2022 07:28-0400 Body temperature 98.06 [degF] Maycol TSERING [facility] [place] 12-20-2022 07:28-0400 Diastolic blood pressure 69 mm[Hg] Maycol TSERING [facility] [place] 12-20-2022 07:28-0400 Mean blood pressure 94 mm[Hg] Maycol TSERING [facility] [place] 12-20-2022 07:28-0400 Systolic blood pressure 143 mm[Hg] Maycol TSERING [facility] [place] 12-20-2022 03:25-0400 Respiratory rate 16 /min Maycol TSERING [facility] [place] 12-20-2022 00:15-0400 Body temperature 97.7 [degF] Maycol TSERING [facility] [place] 12-20-2022 00:15-0400 Diastolic blood pressure 56 mm[Hg] Maycol TSERING [facility] [place] 12-20-2022 00:15-0400 Systolic blood pressure 135 mm[Hg] Maycol TSERING [facility] [place] 12-19-2022 19:28-0400 Body temperature 98.42 [degF] Maycol TSERING [facility] [place] 12-19-2022 19:27-0400 Diastolic blood pressure 69 mm[Hg] Maycol TSERING [facility] [place] 12-19-2022 19:27-0400 Mean blood pressure 90 mm[Hg] Maycol TSERING [facility] [place] 12-19-2022 19:27-0400 Systolic blood pressure 134 mm[Hg] Maycol TSERING [facility] [place] 12-19-2022 16:26-0400 gluc 111 mg/dL Maycol TSERING [facility] [place] 12-19-2022 16:06-0400 Mean blood pressure 95 mm[Hg] Maycol TSERING [facility] [place] 12-19-2022 16:00-0400 Body temperature 98.06 [degF] Maycol TSERING [facility] [place] 12-19-2022 11:58-0400 gluc 201 mg/dL Maycol TSERING [facility] [place] 12-19-2022 08:18-0400 gluc 93 mg/dL Maycol TSERING [facility] [place] 12-19-2022 08:00-0400 Body temperature 98.6 [degF] Maycol TSERING [facility] [place] 12-18-2022 05:46-0400 Blood Pressure Location Maycol TSERING [facility] [place] 12-18-2022 05:46-0400 Heart rate 67 /min Maycol TSERING [facility] [place] 12-18-2022 05:00-0400 Body temperature 98.42 [degF] Maycol TSERING [facility] [place] 12-18-2022 05:00-0400 Mean blood pressure 78 mm[Hg] Maycol TSERING [facility] [place] 12-18-2022 05:00-0400 Respiratory rate 20 /min Maycol TSERING [facility] [place] 12-18-2022 04:00-0400 Mean blood pressure 77 mm[Hg] Maycol TSERING [facility] [place] 12-18-2022 04:00-0400 Respiratory rate 21 /min Maycol TSERING [facility] [place] 12-18-2022 03:00-0400 Mean blood pressure 75 mm[Hg] Maycol TSERING [facility] [place] 12-18-2022 03:00-0400 Respiratory rate 22 /min Maycol TSERING [facility] [place] 12-18-2022 00:09-0400 Heart rate 85 /min Maycol TSERING [facility] [place] 12-17-2022 23:54-0400 Heart rate 86 /min Maycol TSERING [facility] [place] 12-02-2022 14:00-0400 SaO2% (BldA) [Mass fraction] 93 % Maycol TSERING [facility] [place] 12-02-2022 13:00-0400 Hourly Rounding Maycol TSERING [facility] [place] 12-02-2022 13:00-0400 Promise to Return Maycol TSERING [facility] [place] 12-02-2022 12:58-0400 Heart rate 85 /min Maycol TSERING [facility] [place] 12-02-2022 12:58-0400 SaO2% (BldA) [Mass fraction] 88 % Maycol TSERING [facility] [place] 12-02-2022 12:58-0400 Body temperature 97.7 [degF] Maycol TSERING [facility] [place] 12-02-2022 12:58-0400 Diastolic blood pressure 75 mm[Hg] Maycol TSERING [facility] [place] 12-02-2022 12:58-0400 Mean blood pressure 102 mm[Hg] Maycol TSERING [facility] [place] 12-02-2022 12:58-0400 Systolic blood pressure 157 mm[Hg] Maycol TSERING [facility] [place] 12-02-2022 12:10-0400 Hourly Rounding Maycol TSERING [facility] [place] 12-02-2022 12:10-0400 Promise to Return Maycol TSERING [facility] [place] 12-02-2022 11:30-0400 Hourly Rounding Maycol TSERING [facility] [place] 12-02-2022 11:30-0400 Promise to Return Maycol TSERING [facility] [place] 12-02-2022 08:00-0400 Blood Pressure Location Maycol TSERING [facility] [place] 12-02-2022 08:00-0400 Diastolic blood pressure 79 mm[Hg] Maycol TSERING [facility] [place] 12-02-2022 08:00-0400 gluc 127 mg/dL Maycol TSERING [facility] [place] 12-02-2022 08:00-0400 Heart rate 76 /min Maycol TSERING [facility] [place] 12-02-2022 08:00-0400 Respiratory rate 20 /min Maycol TSERING [facility] [place] 12-02-2022 08:00-0400 Systolic blood pressure 141 mm[Hg] Maycol TSERING [facility] [place] 12-02-2022 07:46-0400 Heart rate 66 /min Maycol TSERING [facility] [place] 12-02-2022 07:46-0400 Respiratory rate 18 /min Maycol TSERING [facility] [place] 12-02-2022 07:40-0400 Respiratory rate 18 /min Maycol TSERING [facility] [place] 12-01-2022 23:32-0400 Body temperature 97.16 [degF] Maycol TSERING [facility] [place] 12-01-2022 23:32-0400 Diastolic blood pressure 77 mm[Hg] Maycol TSERING [facility] [place] 12-01-2022 23:32-0400 Mean blood pressure 101 mm[Hg] Maycol TSERING [facility] [place] 12-01-2022 23:32-0400 Systolic blood pressure 130 mm[Hg] Maycol TSERING [facility] [place] 12-01-2022 20:01-0400 Body temperature 97.16 [degF] Maycol TSERING [facility] [place] 12-01-2022 20:01-0400 Mean blood pressure 101 mm[Hg] Maycol TSERING [facility] [place] 12-01-2022 12:07-0400 Body temperature 97.52 [degF] Maycol TSERING [facility] [place] 12-01-2022 07:30-0400 Body temperature 96.98 [degF] Maycol TSERING [facility] [place] 12-01-2022 06:00-0400 gluc 110 mg/dL Maycol TSERING [facility] [place] 11-30-2022 23:32-0400 FIO2 30 % Maycol TSERING [facility] [place] 11-30-2022 20:04-0400 Mean blood pressure 98 mm[Hg] Maycol TSERING [facility] [place] 11-30-2022 04:38-0400 Mean blood pressure 91 mm[Hg] Maycol TSERING [facility] [place] 11-29-2022 20:16-0400 FIO2 30 % Maycol TSERING [facility] [place] 11-29-2022 19:00-0400 Blood Pressure Location Maycolyasmine ARRIOLASLIN [facility] [place] 11-29-2022 08:10-0400 FIO2 30 % Maycol CAGLE [facility] [place] 11-29-2022 04:08-0400 gluc 107 mg/dL Maycol CAGLE [facility] [place] 11-29-2022 04:08-0400 Mean blood pressure 80 mm[Hg] Maycol CAGLE [facility] [place] 11-29-2022 00:16-0400 Heart rate 48 /min Maycol CAGLE [facility] [place] 11-28-2022 22:55-0400 Respiratory rate 19 /min Maycol CAGLE [facility] [place] 11-28-2022 21:45-0400 Respiratory rate 18 /min Maycol CAGLE [facility] [place] 11-28-2022 20:45-0400 Respiratory rate 22 /min Maycol CAGLE [facility] [place] 11-28-2022 18:55-0400 SaO2% (BldA) [Mass fraction] 95.4 % Maycol CAGLE [facility] Resp Auto SS 11-28-2022 17:13-0400 Heart rate 59 /min Maycol CAGLE [facility] [place] 09-07-2022 01:10-0400 Diastolic blood pressure 53 mm[Hg] [facility] 09-07-2022 01:10-0400 Heart rate 70 /min [facility] 09-07-2022 01:10-0400 SaO2% (BldA) [Mass fraction] 96 % [facility] 09-07-2022 01:10-0400 Systolic blood pressure 135 mm[Hg] [facility] Encounters Encounter Date Encounter Type Care Provider Facility Start: 02-01-2023 ambulatory Robin Garcia acility:[facility] Start: 01-21-2023 End: 01-24-2023 Evaluation and management of inpatient New Johnson Facility:[facility] Start: 01-21-2023 End: 01-24-2023 Evaluation and management of inpatient Steve MayesJUKWTory [facility] [place] Start: 01-15-2023 End: 01-16-2023 ambulatory Donta NOONAN Facility:CD:[id number] Start: 01-15-2023 End: 01-15-2023 Off-Site [facility] Start: 12-22-2022 End: 12-23-2022 ambulatory Donta SHAISTA Facility:CD:[id number] Start: 12-22-2022 End: 12-22-2022 Off-Site [facility] Start: 12-18-2022 End: 12-20-2022 Evaluation and management of inpatient Maycol CAGLE Facility:[facility] Start: 12-17-2022 End: 12-20-2022 Evaluation and management of inpatient Maycol CAGLE [facility] [place] Start: 12-14-2022 End: 01-16-2023 ambulatory Donta WAUKESHA Facility:CD:[id number] Start: 12-14-2022 End: 01-16-2023 In-Between Visit [facility] Start: 12-11-2022 ambulatory Donta SHAISTA Facilit y:LUISA Rodas Start: 12-03-2022 End: 12-03-2022 Off-Site [facility] Start: 12-03-2022 End: 12-04-2022 ambulatory Donta NOONAN Facility:[id number] Start: 12-02-2022 End: 01-16-2023 ambulatory Donta NOONAN Facility:[facility] Start: 11-30-2022 ambulatory Facility:[id number] Start: 11-30-2022 ambulatory Facility:[id number] Start: 11-29-2022 ambulatory Facility:[id number] Start: 11-29-2022 End: 12-02-2022 Evaluation and management of inpatient Maycol CAGLE Facility:[facility] Start: 11-28-2022 End: 12-02-2022 Evaluation and management of inpatient Maycol CAGLE [facility] Start: 11-26-2022 End: 11-27-2022 ambulatory Bienvenido Barroso Facility:[facility] Start: 11-26-2022 End: 11-26-2022 Patient encounter procedure Bienvenido Barroso [facility] [place] Start: 09-26-2022 End: 09-28-2022 ambulatory UNKNOWN PROVIDER Facility:[facility] Start: 09-07-2022 End: 09-08-2022 ambulatory UNKNOWN PROVIDER Facility:[facility] Start: 2022 End: 2022 ambulatory Et3 Resource [facility] Emergenc y Triage, Treat and Transport Start: 2022 End: 2022 Emergency department patient visit Et3 [facility] Emergency Triage, Treat and Transport Comment on [...] Treatment Date Care Activity Detail Author Start: 05-01-2023 Annual Wellness Visi t (G0439) Annual Wellness Visit (G0439) [facility] Start: 05-14-2018 Pneumococcal vaccination Pneum ococcal Vaccine(s) (65+ yrs) (2 - PPSV23 if available, else PCV20) [facility] Start: 1994 Shingles (RZV) Vacci ne (1 of 2) Shingles (RZV) Vaccine (1 of 2) [facility] Start: 1962 Hepatitis C screening Hepatitis C An tibody [facility] Start: 1962 Tetanus + diphtheria + acellular pertussis vaccine (product) Tdap Booster [facility] Immunizations Immunization Date Immunization Notes Care Provider Fa [facility] 03-12-2022 SARS-CoV-2 (COVID-19 ) mRNAMUL.ORD![id number] Donta NOONAN [facility] 03-17-2021 Influenza, injectabl e, high-dose seasonal, quadrivalent, 0.7 mL, preservative free (GSA=450) [facility] 07-15-2020 Pfizer (12+ yrs) SARS-COV-2 (COVID-19) vaccine, mRNA, spike protein, LNP, pres. free, 30 mcg/0.3mL dose (MGP=732) [facility] 06-26-2020 Pfizer (12+ yrs) SARS-COV-2 (COVID-19) vaccine, mRNA, spike protein, LNP, pres. free, 30 mcg/0.3mL dose (CTL=324) [facility] 06-23-2019 influenza, high dose seasonal, preservative-free [facility] 05-14-2017 influenza, high dose seasonal, preservative-free [facility] 05-14-2017 pneumococcal conjuga te vaccine, 13 valent Et3 [facility] 04-04-2014 influenza, injectabl e, madin cee canine kidney, preservative free Et3 [facility] NEGATED: Highlighted row has not occurred!06-15-2014 pneumococcal polysaccharide vaccine, 23 valent Bienvenido Barroso [facility] [place] Comment on above: Result Note: pt had vaccine last year per Payers Date Payer Category Payer Self-pay 2022 Unknown [id number] 2022 Medicare [facility] HEALTH [id number] 2022-Present [address] [place] [address] Medicare [id number] 2022 Unknown [id number] 1944 Unknown [id number] [id number] 1944 Unknown [id number] 2.16.840.1.762860.3.579.2.732 1944 Unknown [id number] 2.16.840.1.800723.3.579.2.356 1944 Unknown [id number] 2.16.840.1.976831.3.579.2.356 1944 Unknown [id number] 2.16.840.1.935956.3.579.2.356 1944 Unknown [id number] 2.16.840.1.275389.3.579.2.727 1944 Unknown [id number] 2.16.840.1.311965.3.579.2.727 1944 Unknown [id number] 2.16.840.1.182714.3.579.2.727 1944 Unknown [id number] 2.16.840.1.840113.3.579.2.727 1944 Unknown [id number] 2.16.840.1.646767.3.579.2.72 1944 Unknown [id number] 2.16.840.1.612857.3.579.2.727 1944 Unknown [id number] 2.16.840.1.977448.3.579.2.727 1944 Unknown [id number] 2.16.840.1.124113.3.579.2.727 1944 Unknown [id number] 2.16.840.1.350226.3.579.2.72 1944 Unknown [id number] 2.16.840.1.249724.3.579.2.72 1944 Unknown [id number] 2.16.840.1.142368.3.579.2.72 1944 Unknown [id number] 2.16.840.1.402316.3.579.2.727 Social History Date Type Detail Facility Tobacco smoking status MEIS Tobacco smoking consumption unknown [facility] Start: 1945 Sex Assigned At [facility] Start: 04-24-2021 Tobacco smoking status Ex-smoker (finding) [facility] Sex Assigned At Male [facility] Functional Status Date Assessment Result Facility 01-21-2023 Functional Status No [facility] 01-21-2023 Functional Status [facility] 12-18-2022 Functional Status N/A [facility] 12-17-2022 Functional Status [facility] 11-29-2022 Functional Status N/A [facility] 11-28-2022 Functional Status [facility] Clinical Notes 09-07-2022 to 01-24-2023 Note Date & Type Note Facility 01-24-2023 Evaluation + Plan note Extrac gi from: Title:Discharge Note Author:New Johnson DO Date:01/24/23 Discharge To, Anticipated II - [facility] Unit Discharged to - Home independently Transported [...] When Contact Information Dharmesh POTTS, Bienvenido Chavira, [facility] [place] [address]- Additional Instructions: Dementia, Glsm-qw-Zpia Extracted from: Title:APSO Note Author:New Johnson DO Gerry e:01/23/23 1. Generalized weakness (R53 .1: Weakness) IV fluids, trend BUN and creatinine PT/OT Currently awaiting pre-CERT for placement 2. Alzheimers disease (G30.9: Alzheimer's disease, unspecified) Continue Seroquel 3. 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 Alzheimers disease (G30.9: Alzheimer's disease, unspecified) Continue Seroquel 3. 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 COPD [...] Ordered: Initial Hospital Care/Day Moderate 55 Minutes 52729 2. Alzheimers disease (G30.9: Alzheimer's disease, unspecified) Continue Seroquel 3. 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 [facility]09-03-[facility] on above:Result Comment: Electronically Signed By: New Johnson DO.candice\Date and Time Signed: 01/24/23 09:57 [id number] Hospital Discharge instructions Patient Education 01/24/2023 09:54:03 Dementia, Sjen-kp-Zkzs Dementia Dementia is a condition that affects [...] Follow these instructions at home: Medicines Take tzjw-mtt-dtwaldg and prescription medicines only as told by [...] find more information Alzheimer's Association: www.alz.org National [place] on Aging: www.susie.nih.gov/alzheimers World Health Organization: www.who.int [...] room or: Call your local emergency services (666 in the [place] Call the National Suicide Prevention Lifeline at or 840 in the [place] This is open 24 hours a day. Text the Crisis Text Line at 670819. Summary Dementia often affects memory and thinking. [...] provider. Document Revised: 12/03/2021 Document Reviewed: 09/23/2020 [employer] Patient Education 2022 [employer]. Follow Up Care 01/21/2023 15:06:04 With:Dharmesh POTTS, SHEA Castillo Address: [address] [place] [address]- When: Unknown [facility]08-31-2023 [facility]FishMedStar [facility] HospitalComment on above:Result Comment: Electronically Signed By: New Johnson DO\Toshabr\Date and Time Signed: 01/21/23 17:53 [id number] Evaluation + Plan note Extracted from: Title:Discharge Note Author:MICHAEL POTTS, Jamir Gerry e:12/20/22 stable Discharge To, Anticipated II - [facility] Discharged to - group home unit SNF Discharge Diet(s): Calorie Controlled- 1800 Calorie Diet (12/20/22 09:46:00) Prescriptions alprazolam 0.5 mg Tab, 0.5 mg= 1 tab(s), Oral, Daily, PRN aspirin 81 mg Oral EC Tab, 81 mg= 1 tab(s), Oral, Daily Augmentin 875 mg oral tablet, 1 tab(s), Oral, q12hr ergocalciferol 50,000 intl units Cap, 64077 International_Unit= 1 cap(s), Oral, q7day furosemide 40 [...] BID With When Contact Information Bienvenido Barroso [address] [place] [id number] (1) Additional Instructions: Call for followup [...] ultimately benefit being only slightly on the skein 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 Coronary artery disease (I25.10: Atherosclerotic heart disease of [place] coronary artery without angina pectoris) Patient had [...] 9. Pulmonary hypertension (I27.20: Pulmonary hypertension, unspecified) Mitchell secondary to above 10. Hypertension (I10: Essential (primary) hypertension) Await reconciliation of meds from the extended care facility. He did have 1 blood pressure of 106 systolically in the emergency department. With the fall and suspicion of intravascular depletion will transiently hold antihypertensives if it is identified he is actually on antihypertensives at the [facility] care facility. On a prior hospitalization he [...] recent hospitalization has been titrated at the [facility] care facility. He was recently placed on Xanax, discontinue that at this time. Awaiting verification of meds from the [facility] 15. Encounter for deep vein thrombosis (DVT) [...] patient's RN it was advised that the [facility] was planning on sending a copy of [...] Tests Pending * Legionella Antigen Urine 12/18/22 [facility]07-30-2023 NoteCRM entered the room to discuss dc planning. PCP, DME and insurance discussed. Patient is alert andinvolved in plan of care. Contact information given and whiteboard updated. [facility] 17 today. CRM to follow.[facility] InstituteComment on above:Result Comment: Electronically Signed By: Natalie Grant.br\Date and Time Signed: 12/20/22 11:52 [id number] [facility] InstituteComment on above: Result Comment: Electronically Signed By: Jamir MCKINNEY MD\.br\Date and Time Signed: 12/20/22 10:[id number] Hospital Discharge instructions Patient Education 12/20/2022 09:48:09 [...] a long-term care facility, such as a [facility]. Having your kidneys filtered through hemodialysis in [...] hard liquor (44 mL). General instructions Take tgmd-xib-ifksoek and prescription medicines as told by your [...] are not available, use an alcohol-based hand engineering manager. ?Make sure your health care providers wash [...] and water or with alcohol- based hand engineering manager before and after caring for sick people. [...] bacteria common in health care settings. Take eort-wil-ztmriug and prescription medicines as told by your [...] provider. Document Revised: 05/31/2022 Document Reviewed: 05/31/2022 [employer] Patient Education 2022 Personally Follow Up Care 12/17/2022 23:50:19 With:Bienvenido Barroso Address: [place] [address] [facility] (1) When: Unknown Comments:Call for followup appointment [facility]07-28-2023 [facility]Result Comment: Electronically Signed By: Maycol CAGLE DO\.br\Date and Time Signed: 12/18/22 06:27 [id number] [facility]Comment [facility]:Result Comment: Electronically Signed By: Lizeth Cedeno MD\.br\Date and Time Signed: 12/02/22 12:28 [id number] Evaluation + Plan noteExtracted from: Title:Discharge Note Author:Lizeth Cedeno MD ate:12/02/22 Stable Discharge To, Anticipated II - [facility] Discharged to - Home with family care Transported by, Anticipated - Family Discharge Diet(s): Other: Limit fluids to 1800 ml/day (12/02/22 12:23:00) Prescriptions aspirin 81 mg Oral EC Tab, 81 mg= 1 tab(s), Oral, Daily ergocalciferol 50,000 intl units Cap, 99476 International_Unit= 1 cap(s), Oral, q7day furosemide 40 [...] Bedtime With When Contact Information Joanie Jiménez [facility] [address] [place] [address]- Business (1) Additional Instructions: HFpEF Dave Coy [address] [place] [address]- Business (1) Additional Instructions: Cog impariment, [facility] Bienvenido Barroso In [address] [place] [address]- Business (1) Additional Instructions: Extracted from: Title:UPDATE [...] of CAD and previous coronary interventions in [place] with no indication of recurrent CAD, would [...] Extracted from: Title:SOAP Note: Simple Author:Marcus POTTS, [facility] Date:11/29/22 Impression and Plan CONSULT DICTATED CAME [...] as able, brad varela. -check echo Ordered: [facility] Care/Day High 50 Minutes 15196 2. Acute on chronic diastolic heart failure (I50.33: Acute on chronic diastolic (congestive) heart failure) c/w spironolactone and lasix IV 40mg qd -strict I/Os and daily weight - last echo was done 2014 with EF of 50%. will recheck this visit Ordered: [facility] Care/Day High 50 Minutes 63429 3. COPD without exacerbation (J44.9: Chronic obstructive pulmonary disease, unspecified) Ordered: [facility] Care/Day High 50 Minutes 44618 4. Weakness (R53.1: Weakness) -pt/ot Ordered: [facility] Care/Day High 50 Minutes 11767 5. Sinus bradycardia (R00.1: Bradycardia, unspecified) baseline. last EKG similar. -pt had decreased HR overnight so BB was held. -continue to monitor on tele Ordered: [facility] Care/Day High 50 Minutes 51688 6. Coronary artery disease (I25.10: Atherosclerotic heart disease of [place] coronary artery without angina pectoris) -c/w ASA Ordered: [facility] Care/Day High 50 Minutes 94414 7. Obstructive sleep apnea (G47.33: Obstructive sleep apnea (adult) (pediatric)) -CPAP qHS Ordered: [facility] Care/Day High 50 Minutes 20991 8. Pulmonary hypertension (I27.20: Pulmonary hypertension, unspecified) c/w spironolactone 50mg -lasix 40 mg iv qd -strict I/Os daily weights -check echo Ordered: [facility] Care/Day High 50 Minutes 86763 9. Abdominal pain (R10.9: Unspecified abdominal pain) resolved no complaints this morning Ordered: [facility] Care/Day High 50 Minutes 94384 10. Hypertension (I10: Essential (primary) hypertension) c/w spironolactone Ordered: [facility] Care/Day High 50 Minutes 01843 11. Diabetes (E11.9: Type 2 diabetes mellitus without complications) BGT qACHS -c/w glimepiride Ordered: [facility] Care/Day High 50 Minutes 11079 12. Hyperlipidemia (E78.5: Hyperlipidemia, unspecified) -hold statin due to elevated CK Ordered: [facility] Care/Day High 50 Minutes 34389 13. Chronic anemia (D64.9: Anemia, unspecified) monitor Ordered: [facility] Care/Day High 50 Minutes 29338 14. BPH (benign prostatic hyperplasia) (N40.0: Benign prostatic hyperplasia without lower urinary tract symptoms) c/w tamsulosin Ordered: [facility] Care/Day High 50 Minutes 18431 15. Dementia (F03.90: Unspecified dementia, unspecified severity, without behavioral disturbance, psychotic disturbance, mood disturbance, and anxiety) -c/w seroquel 25mg qHS Ordered: [facility] Care/Day High 50 Minutes 00874 16. Encounter for deep vein thrombosis (DVT) prophylaxis (Z29.9: Encounter for prophylactic measures, unspecified) Ordered: [facility] Care/Day High 50 Minutes 04889 17. Elevated CK (R74.8: Abnormal levels of other serum enzymes) -CK 1000 this morning. will monitor and hold statin - will not give fluids due to current diuresis Ordered: [facility] Care/Day High 50 Minutes 50204 COPD with acute exacerbation (J44.1: Chronic obstructive [...] artery disease (I25.10: Atherosclerotic heart disease of [place] coronary artery without angina pectoris) Continue aspirin, [...] Scheduled Provider:Donta NOONAN MD Location:Extended Care Appointment Type:[facility]07-10-2023 NoteOT [facility] score 15/24 = SNF. Patient requires assist w/ all transfers and self care at this time. Inpatient OT services to follow daily to progress w/ functional skills.[facility]07-09-2023 NotePT Evaluation completed with an [facility] score of 16/24. Pt requires Min A for bed mobility and min/Mod A to stand. Pt was able to take two sidesteps. Will follow daily, but SN[facility] HospitalComment on above:Result Comment: Electronically Signed By: Maycol CAGLE DO\.br\Date and Time Signed: 11/29/22 01:33 [id number] Hospital Discharge instructions Follow Up Care 11/28/2022 17:10:04 With:Joanie Jiménez Address: [facility] [address], [address] [place] [address]- Business (1) When: Unknown Comments:HFpEF With:Dave Cruz Address: [address] [place] [id number]- Business (1) When: Unknown Comments:Cog impariment, [employer] With:Bienvenido Barroso Address: [address] [place] [id number] Business (1) When: Unknown [facility]05[facility]20[facility]23 [facility]Result Comment: Electronically Signed By: Adeline COLEMAN\.br\Date and Time Signed: 10/10/22 17:53 EDT\.br\Electronically Co- Signed By: Ganesh Minaya MD\.br\Date and Time Co-Signed: 10/10/22 18:51 EDT 09-27-2022 [facility]:Result Comment: Electronically Signed By: Adeline COLEMAN\.br\Date and Time Signed: 09/26/22 21:20 EDT\.br\Electronically Co-Signed By: Ganesh Minaya MD\.br\Date and Time Co-Signed: 09/27/22 08:00 [id number] History of Present illness Narrative* Marcelino Echavarria MD - 09/07/2022 1:12 AM EDT Images from the original note were not included. EMERGENCY TRIAGE, TREAT AND TRANSPORT (ET3) DOCUMENTATION OF TELEHEALTH VISIT Date / Time: 09/06/20222146 Name: Clyde Humphrey : 1945 SSN: [id number] EMS Agency: [facility] [x] Verbal consent obtained [] Implied [...] note No data available for this section [facility], initial encounter- [facility] No data available for this section [facility] No data available for this section [facility] Summary Purpose Family History No Family History [...] section and content) DATE CREATED AUTHOR 06/26/2021 [facility] dical Specialist DATE CREATED AUTHOR AUTHOR'S ORGANIZ ATION 09/30/2022 [facility] DATE CREATED AUTHOR AUTHOR'S ORGANIZ ATION 12/05/2022 [facility] DATE CREATED AUTHOR AUTHOR'S ORGANIZ ATION 03/26/2023 [facility] DATE CREATED AUTHOR AUTHOR'S ORGANIZ ATION 05/04/2023 [facility] Reason for Visit (unrecogniz ed section and content) Reason Comments Fall Patient Care team informatio n (unrecognized section and content) Personnel Name: Bienvenido Barroso MD Address: Address: [address] [place] [address] Name: Andrew Rodriguez Personnel Name: Bienvenido Barroso MD Address: Address: [address] [place] [address] Name: Andrew Rodriguez Personnel Name: Bienvenido Barroso MD Address: Address: [address] [place] [address] Name: Andrew Rodriguez Personnel Name: Bienvenido Barroso MD Address: Address: [address] [place] [address] Name: Andrew Rodriguez Personnel Name: Bienvenido Barroso MD Address: Address: [address] [place] [address] Name: Andrew Rodriguez Personnel Name: Bienvenido Barroso MD Address: Address: [address] [place] [address] Name: Andrew Rodriguez Personnel Name: Bienvenido Barroso MD Address: Address: [address] [place] [address] Name: Andrew Rodriguez Personnel Name: Bienvenido Barroso MD Address: Address: [address] [place] [address] Name: Luis Gil LPN Name: Andrew Rodriguez [...] BE BASED ON THE PRIMARY CLINICAL RECORDS. [employer] [facility]. provides no warranty or guarantee of the accuracy or completeness of information in this document.
--- OUTSIDE RECORDS SUMMARY | 2023-08-04 07:40 | XMS_ITS | CCD ---
Author Name Unknown Address [address] [place] [address] Organization [facility] Care Team Providers Care Merchant Seaman Name Role Phone Unavailable Primary Care Provider Unavailabl e PROVIDER, UNKNOWN Attending Unavailable PROVIDER, UNKNOWN Admitting Unavailable PROVIDER, UNKNOWN Attending Unavailable PROVIDER, UNKNOWN Admitting Unavailable Bienvenido Barroso Primary Care Physician Andrew Rodriguez Unavailable Unavailable Luis Gil Unavailable [...] Refills(s) 0 Start Date: 06/16/14 Status: Ordered [id number] 200 actuat albuterol 0.09 mg/actuat metered dose inhaler (4 sources) beta2-Adrenergic Agonist Start: 04-27-2021 take 2 puff(s) by inhalation four times daily for wheezing Pro-Air HFA CFC free 90 mcg/inh MDI 2 puff(s), Inhalation, QID for wheezing, 8.5 gram, Refill(s) 0, [facility], 167.6, cm, 04/24/21 18:14:00 EST, Height/Length [...] Daily, # 30 tab(s), Refills(s) 0, Pharmacy: [facility], 167, cm, 11/28/22 17:20:00 EDT, Height/Length [...] Daily, # 90 tab(s), Refills(s) 4, Pharmacy: [facility], 160, cm, 12/18/22 0:04:00 EDT, Height/Length [...] Daily, # 90 tab(s), Refills(s) 4, Pharmacy: [facility], 160, cm, 12/18/22 0:04:00 EDT, Height/Length [...] Daily, # 90 tab(s), Refills(s) 1, Pharmacy: [facility], 160, cm, 12/18/22 0:04:00 EDT, Height/Length Dosing, 94, kg, 12/18/22 0:04:00 EDT, Weight Dosing Start Date: 01/15/23 Status: Ordered Start: 12-02-2022 take 1 tablet by [facility] once daily furosemide 40 mg Tab 40 mg = 1 tab(s), Oral, Daily, # 30 tab(s), Refills(s) 0, Pharmacy: [facility], 167, cm, 11/28/22 17:20:00 EDT, Height/Length Dosing, 99.8, kg, 11/28/22 17:20:00 EDT, Weight Dosing Start Date: 12/02/22 Status: Ordered Start: 06-13-2013 take 1 tablet by [facility] once daily furosemide 40 mg Tab [...] day, # 30 tab(s), Refills(s) 0, Pharmacy: [facility], 167, cm, 09/26/22 10:09:00 EDT, Height/Length [...] qHS, # 210 tab(s), Refills(s) 1, Pharmacy: [facility], 160, cm, 12/18/22 0:04:00 EDT, Height/Length [...] Bedtime, # 30 tab(s), Refills(s) 0, Pharmacy: [facility], 167, cm, 11/28/22 17:20:00 EDT, Height/Length [...] Daily, # 90 tab(s), Refills(s) 1, Pharmacy: [facility], 160, cm, 12/18/22 0:04:00 EDT, Height/Length [...] week(s), # 8 cap(s), Refills(s) 0, Pharmacy: [facility], 167, cm, 11/28/22 17:20:00 EDT, Height/Length [...] Completed Start: 06-16-[address] [facility] twice daily tamsulosin 0.4 mg Cap [...] Coronary atherosclerosis; Translations: [Atherosclerotic heart disease of [place] coronary artery without angina pectoris] Onset: 11-29-2022 [...] Insurance Correspondenceon 1 05-25-2022 Insurance Correspondence [id number]# 1.00TIFF [facility] Coding Queryon 02-17-2023 Coding Query [facility] Discharge Instructionson Discharge Instructions [id number]# 1.00CD:127 [facility] Transfer Documentson 023 Transfer Documents [id number]# 1.00CD:127 [facility] Discharge Note-Nursingon Discharge Note-Nursing Normal [facility] Interdisciplinary Note - Santosh e Manageron 01-23-2023 Interdisciplinary Note - Elevator Examiner And Adjuster [facility] Comment on above: Result Comment: Elec tronically Signed By: Norma Garcia RN\.br\Date and Time Signed: 01/23/23 16:29 EDT Progress Note-Physicianon Progress Note-Physician Normal [facility] Comment on above: Result Comment: Elec tronically Signed By: New Johnson DO\.br\Date and Time Signed: 01/23/23 09:50 EDT Auto Diffon 01-22-2023 Basophils/100 WBC (Bld) 0.7 % Normal 0.0-2.0 [facility] Comment on above: Order Comment: Order Added by Discern Expert. Performed By: #### 2 625242, 28505913, 5716816, 3075856 ####[address] [place] [address] Basophils/Leukocytes Auto (Bld) [Pure # fraction] 0.1 E9/L Normal 0.0-0.2 [facility] Comment on above: Order Comment: Order Added by Discern Expert. Performed By: #### 2 791644, 42455398, 2865284, 0578926 ####[address] [address] Eosinophils/100 WBC (Bld) 9.3 % High 0.0-8.0 [facility] Comment on above: Order Comment: Order Added by Bethany Expert. Performed By: #### 2 600695, 41265680, 3762876, 5087059 ####[address] [address] Eosinophils/Leukocytes Auto (Bld) [Pure # fraction] 0.8 E9/L High 0.0-0.5 [facility] Comment on above: Order Comment: Order Added by Bethany Expert. Performed By: #### 2 279085, 68675132, 7881766, 1118966 ####[address] [address] Lymphocytes/100 WBC (Bld) 17.2 % Normal 14.0-50.0 [facility] Comment on above: Order Comment: Order Added by Bethany Expert. Performed By: #### 2 342601, 30346544, 9776363, 4245040 ####[address] [address] Lymphocytes/Leukocytes Auto (Bld) [Pure # fraction] 1.4 E9/L Normal 1.0-4.0 [facility] Comment on above: Order Comment: Order Added by Bethany Expert. Performed By: #### 2 672394, 04195643, 2526938, 6116084 ####[address] [address] Monocytes/100 WBC (Bld) 10.0 % Normal 4.0-14.0 [facility] Comment on above: Order Comment: Order Added by Discern Expert. Performed By: #### 2 333765, 25730496, 2121441, 4380157 ####[address] [place] [address] Monocytes/Leukocytes Auto (Bld) [Pure # fraction] 0.8 E9/L Normal 0.2-1.0 [facility] Comment on above: Order Comment: Order Added by Discern Expert. Performed By: #### 2 144050, 11600268, 4340948, 1704582 ####[address] [address] Neutrophils/100 WBC (Bld) 62.8 % Normal 36.0-75.0 [facility] Comment on above: Order Comment: Order Added by Discern Expert. Performed By: #### 2 505425, 12190509, 0868573, 0307167 ####[address] [address] Neutrophils/Leukocytes Auto (Bld) [Pure # fraction] 5.2 E9/L Normal 2.0-7.5 [facility] Comment on above: Order Comment: Order Added by Discern Expert. Performed By: #### 2 153525, 03708676, 6381353, 7267084 ####[address] [address] CBC w/ Auto Diffon 3 Erythrocyte distribution width (RBC) [Ratio] 15.2 % High 10.9-14.2 [facility] Comment on above: Performed By: #### 2 732082, 24486884, 5157125, 9648243 ####[address] [address] Hematocrit (Bld) [Volume fraction] 43.1 % Normal 37.7-49.0 [facility] Comment on above: Performed By: #### 2 094927, 70183188, 5456075, 5407239 ####[facility] [address] [place] [address] Hemoglobin (Bld) [Mass/Vol] 14.6 g/dL Normal 13.5-17.5 [facility] Comment on above: Performed By: #### 2 962432, 23821487, 6720856, 5979934 ####[facility] [address] [place] [address] MCH (RBC) [Entitic mass] 28.1 pg Normal 27.0-34.0 [facility] Comment on above: Performed By: #### 2 554402, 29669103, 0295311, 6878975 ####[address] [address] MCHC (RBC) [Mass/Vol] 33.8 g/dL Normal 31.4-36.0 [facility] Comment on above: Performed By: #### 2 514944, 35364937, 2625308, 5941074 ####[facility] [address] [place] [address] MCV (RBC) [Entitic vol] 83.2 fL Normal 80.0-100.0 [facility] Comment on above: Performed By: #### 2 509665, 60447679, 9091904, 4160142 ####[facility] [address] [place] [address] Platelet mean volume (Bld) [Entitic vol] 8.6 fL Normal 6.4-10.8 [facility] Comment on above: Performed By: #### 2 538971, 88148833, 5638209, 4855303 ####[facility] [address] [place] [address] Platelets (Bld) [#/Vol] 221.0 E9/L Normal 150.0-500.0 [facility] Comment on above: Performed By: #### 2 340145, 96984145, 9452095, 1589064 ####[facility] [address] [place] [address] RBC (Bld) [#/Vol] 5.2 E12/L Normal 4.3-5.9 [facility] Comment on above: Performed By: #### 2 094771, 17097858, 7458263, 8295078 ####[facility] [address] [place] [address] WBC corrected for nucl RBC Auto (Bld) [#/Vol] 8.3 E9/L Normal 4.0-11.0 [facility] Comment on above: Performed By: #### 2 819905, 06221850, 0338034, 6448874 ####[facility] [address] [place] [address] CHEMISTRYOrdered By: Lab ROP User on 01-22-2023 Glucose [Mass/Vol] 121 mg/dL High 55 - 99 mg/dL [facility] POC Subsection Comment on above: Result Comment: Gareth guerrero RN/ POC Device SN [id number] Invalid Interpretation Code [facility] POC Subsection POC User ID [id number] Invalid Interpretation Code [facility] POC Subsection POC Username LATONIA MALHOTRA Invalid Interpretation Code [facility] POC Subsection CHEMISTRYOrdered By: SYSTEM SYSTEM on [...] 56 mL/min/1.73 m2 Low >=59mL/min/ 1.73 m2 [facility] Chem S Globulin (S) [Mass/Vol] 3.6 g/dL [...] 01-22-2023 Albumin [Mass/Vol] 3.7 g/dL Normal 3.3-5.0 [facility] Comment on above: Performed By: #### 2 015656, 97956167, 2753102, 7771272 ####[facility] [address] [place] [address] Albumin/Globulin (S) [Mass conc ratio] 1.0 Low 1.1-2.2 [facility] Comment on above: Performed By: #### 2 048773, 09619568, 4949869, 1736899 ####[facility] [address] [place] [address] ALP [Catalytic activity/Vol] 47 Int._Unit/L Normal 21-98 [facility] Comment on above: Performed By: #### 2 189728, 84136516, 7922753, 3320409 ####[facility] [address] [place] [address] ALT No additional P-5'-P [Catalytic activity/Vol] 21 Int._Unit/L Normal 6-46 [facility] Comment on above: Performed By: #### 2 283224, 59480597, 4704173, 1782951 ####[facility] [address] [place] [address] Anion gap [Moles/Vol] 15 mmol/L Normal 6-16 [facility] Comment on above: Performed By: #### 2 687490, 35049292, 7931796, 5289634 ####[address] [place] [address] AST [Catalytic activity/Vol] 21 Int._Unit/L Normal 5-43 [facility] Comment on above: Performed By: #### 2 830006, 95106680, 7658579, 5253197 ####[facility] [address] [place] [address] Bilirubin [Mass/Vol] 0.8 mg/dL Normal 0.0-1.1 [facility] Comment on above: Performed By: #### 2 730531, 00243182, 2046039, 6310372 ####[facility] [address] [place] [address] Calcium [Mass/Vol] 9.6 mg/dL Normal 8.9-11.1 [facility] Comment on above: Performed By: #### 2 236775, 48643694, 6962263, 9264205 ####[facility] [address] [place] [address] Chloride [Moles/Vol] 97 mmol/L Low 101-111 [facility] Comment on above: Performed By: #### 2 380535, 06174564, 2570764, 2133308 ####[facility] [address] [place] [address] CO2 [Moles/Vol] 30 mmol/L Normal 21-31 [facility] Comment on above: Performed By: #### 2 861183, 47007267, 7500539, 7264744 ####[facility] [address] [place] [address] Creatinine [Mass/Vol] 1.3 mg/dL Normal 0.5-1.3 [facility] Comment on above: Performed By: #### 2 862247, 01337107, 0292261, 5213501 ####[facility] [address] [place] [address] Globulin (S) [Mass/Vol] 3.6 g/dL Normal 1.4-4.0 [facility] Comment on above: Performed By: #### 2 744889, 44760816, 8129684, 2898209 ####[facility] [address] [place] [address] Glucose [Mass/Vol] 124 mg/dL Normal 55-199 [facility] Comment on above: Result Comment: If t his glucose result represents a fasting glucose, interpretation should refer to the following reference range: 55-99 mg/dL Performed By: #### 2 966953, 41190365, 6368623, 1461942 ####[facility] [address] [place] [address] Potassium [Moles/Vol] 4.0 mmol/L Normal 3.5-5.3 [facility] Comment on above: Performed By: #### 2 986698, 09356165, 6111890, 7245019 ####[facility] [address] [place] [address] Protein [Mass/Vol] 7.3 g/dL Normal 6.0-7.8 [facility] Comment on above: Performed By: #### 2 167569, 57043006, 9856061, 4846772 ####[facility] [address] [place] [address] Sodium [Moles/Vol] 138 mmol/L Normal 135-145 [facility] Comment on above: Performed By: #### 2 859353, 16395788, 6588092, 6938089 ####[facility] [address] [place] [address] Urea nitrogen [Mass/Vol] 42 mg/dL High 5-21 [facility] Comment on above: Performed By: #### 2 386333, 64713354, 5421621, 4186478 ####[facility] [address] [place] [address] Urea nitrogen/Creatinine [Mass ratio] 32 No Units High 10-20 [facility] Comment on above: Performed By: #### 2 455521, 62641134, 5825099, 0648867 ####[facility] [address] [place] [address] Capillary Glucose POCon Glucose [Mass/Vol] 121 mg/dL High 55-99 [facility] Comment on above: Result Comment: Gareth guerrero RN/ Performed By: #### 2 90774803 ####[facility] [address] [place] [address] Coding Queryon 01-22-2023 Coding Query Normal [facility] HEMATOLOGYOrdered By: SYSTEM SYSTEM on 01-22-2023 [...] Correspondence Off iceon 01-22-2023 Insurance Correspondence Office [id number]#1 .00CD:127 Normal [facility] Interdisciplinary Note - Santosh e Manageron 01-22-2023 Interdisciplinary Note - Elevator Examiner And Adjuster Normal [facility] Comment on above: Result Comment: Elec tronically Signed By: Natalie Grant\.br\Date and Time Signed: 01/22/23 11:13 EDT Interdisciplinary Note - Murphy n 01-22-2023 Interdisciplinary Note - OT Normal [facility] Interdisciplinary Note - PTo n 01-22-2023 Interdisciplinary Note - PT Normal [facility] Message from Medicareon Message from Medicare [id number]#1 .00CD:127 Normal [facility] Progress Note-Physicianon Progress Note-Physician Normal [facility] Comment on above: Result Comment: Elec tronically Signed By: New Johnson DO.br\Date and Time Signed: 01/22/23 14:15 EDT eGFRon 01-22-2023 GFR/1.73 sq M.predicted among non-blacks MDRD (S/P/Bld) [Vol rate/Area] 56 mL/min/1.73 m2 Low >=59 [facility] Comment on above: Order Comment: Order added by Discern Expert. Result Comment: Machinist earnest kidney disease could be indicated at eGFR's of less than 60 mL/min/1.73m2. Kidney failure is indicated at less than 15 mL/min/1.73m2. Performed By: #### 2 117107, 64223205, 0233419, 4467062 ####[facility] [address] [place] [address] Auto Diffon 01-21-2023 Basophils/100 WBC (Bld) 0.9 % Normal 0.0-2.0 [facility] Comment on above: Order Comment: Order Added by Discern Expert. Performed By: #### 2 428380, 5443637, 77761384, 86835240, 6880509, 5775747 ####[facility] [address] [place] [address] Basophils/Leukocytes Auto (Bld) [Pure # fraction] 0.1 E9/L Normal 0.0-0.2 [facility] Comment on above: Order Comment: Order Added by Discern Expert. Performed By: #### 2 416360, 9528585, 98942902, 84493067, 9026698, 8120889 ####[address] [place] [address] Eosinophils/100 WBC (Bld) 3.3 % Normal 0.0-8.0 [facility] Comment on above: Order Comment: Order Added by Discern Expert. Performed By: #### 2 576165, 7295979, 27970609, 63110251, 6102782, 9113201 ####[address] [place] [address] Eosinophils/Leukocytes Auto (Bld) [Pure # fraction] 0.4 E9/L Normal 0.0-0.5 [facility] Comment on above: Order Comment: Order Added by Bethany Expert. Performed By: #### 2 788307, 8165134, 78213642, 70514908, 6917871, 7668076 ####[address] [address] Lymphocytes/100 WBC (Bld) 10.4 % Low 14.0-50.0 [facility] Comment on above: Order Comment: Order Added by Bethany Expert. Performed By: #### 2 293377, 9832257, 54061915, 13759090, 6113495, 2929815 ####[address] [address] Lymphocytes/Leukocytes Auto (Bld) [Pure # fraction] 1.2 E9/L Normal 1.0-4.0 [facility] Comment on above: Order Comment: Order Added by Bethany Expert. Performed By: #### 2 343875, 6884133, 25098958, 58114078, 2984149, 4585980 ####[address] [place] [address] Monocytes/100 WBC (Bld) 7.4 % Normal 4.0-14.0 [facility] Comment on above: Order Comment: Order Added by Discern Expert. Performed By: #### 2 748066, 6165181, 15287987, 94558945, 7147245, 9927640 ####[address] [place] [address] Monocytes/Leukocytes Auto (Bld) [Pure # fraction] 0.9 E9/L Normal 0.2-1.0 [facility] Comment on above: Order Comment: Order Added by Discern Expert. Performed By: #### 2 277741, 6533294, 49527366, 42698739, 2332290, 0148412 ####[address] [place] [address] Neutrophils/100 WBC (Bld) 78.0 % High 36.0-75.0 [facility] Comment on above: Order Comment: Order Added by Discern Expert. Performed By: #### 2 647666, 7427214, 40389002, 40796335, 8006875, 5240157 ####[address] [address] Neutrophils/Leukocytes Auto (Bld) [Pure # fraction] 9.1 E9/L High 2.0-7.5 [facility] Comment on above: Order Comment: Order Added by Discern Expert. Performed By: #### 2 477708, 1828186, 83212426, 02932475, 2459654, 1985727 ####[address] [place] [address] BMPon 01-21-2023 Creatinine [Mass/Vol] 1.2 mg/dL Normal 0.5-1.3 [facility] Comment on above: Performed By: #### 2 233831, 7307127, 65087917, 40120312, 8449863, 8319275 ####[address] [place] [address] Urea nitrogen [Mass/Vol] 38 mg/dL High 5-21 [facility] Comment on above: Performed By: #### 2 844554, 1962385, 95167082, 53173126, 5366948, 8452617 ####[address] [place] [address] Urea nitrogen/Creatinine [Mass ratio] 32 No Units High 10-20 [facility] Comment on above: Performed By: #### 2 054468, 0920203, 41694883, 88943997, 8302281, 9963886 ####[facility] [address] [place] [address] Anion gap [Moles/Vol] 14 mmol/L Normal 6-16 [facility] Comment on above: Performed By: #### 2 908586, 5778963, 46949527, 28634947, 0701587, 3385790 ####[facility] [address] [place] [address] Calcium [Mass/Vol] 9.9 mg/dL Normal 8.9-11.1 [facility] Comment on above: Performed By: #### 2 683792, 3328906, 29695220, 18698885, 5705015, 7715192 ####[facility] [address] [place] [address] Chloride [Moles/Vol] 95 mmol/L Low 101-111 [facility] Comment on above: Performed By: #### 2 834143, 9958175, 48796681, 02959755, 2075806, 5959404 ####[facility] [address] [place] [address] CO2 [Moles/Vol] 31 mmol/L Normal 21-31 [facility] Comment on above: Performed By: #### 2 845334, 5659424, 04032040, 11772709, 2139990, 7003176 ####[facility] [address] [place] [address] Glucose [Mass/Vol] 124 mg/dL Normal 55-199 [facility] Comment on above: Result Comment: If t his glucose result represents a fasting glucose, interpretation should refer to the following reference range: 55-99 mg/dL Performed By: #### 2 167886, 1302690, 31679554, 82139784, 1933165, 4188512 ####[facility] [address] [place] [address] Potassium [Moles/Vol] 4.3 mmol/L Normal 3.5-5.3 [facility] Comment on above: Performed By: #### 2 781183, 8291385, 81919091, 72011627, 3941091, 1383819 ####[facility] [address] [place] [address] Sodium [Moles/Vol] 136 mmol/L Normal 135-145 [facility] Comment on above: Performed By: #### 2 993258, 7206129, 41734007, 52103868, 1018568, 8514471 ####[facility] [address] [place] [address] CBC w/ Auto Diffon Erythrocyte distribution width (RBC) [Ratio] 15.4 % High 10.9-14.2 [facility] Comment on above: Performed By: #### 2 998499, 3010439, 63959787, 86808133, 1778171, 6027115 ####[facility] [address] [place] [address] Hematocrit (Bld) [Volume fraction] 42.5 % Normal 37.7-49.0 [facility] Comment on above: Performed By: #### 2 199822, 1862617, 57813893, 87661146, 1127526, 6361109 ####[facility] [address] [place] [address] Hemoglobin (Bld) [Mass/Vol] 13.9 g/dL Normal 13.5-17.5 [facility] Comment on above: Performed By: #### 2 847651, 7923371, 68876489, 79125798, 8163791, 6237354 ####[facility] [address] [place] [address] MCH (RBC) [Entitic mass] 27.3 pg Normal 27.0-34.0 [facility] Comment on above: Performed By: #### 2 149860, 7128919, 80968133, 30551909, 0978529, 5715993 ####[facility] [address] [place] [address] MCHC (RBC) [Mass/Vol] 32.7 g/dL Normal 31.4-36.0 [facility] Comment on above: Performed By: #### 2 138009, 9083180, 85995944, 35240978, 6829271, 6706141 ####[address] [address] MCV (RBC) [Entitic vol] 83.4 fL Normal 80.0-100.0 [facility] Comment on above: Performed By: #### 2 740986, 4963803, 87739972, 12917241, 8265784, 4591347 ####[address] [address] Platelet mean volume (Bld) [Entitic vol] 8.6 fL Normal 6.4-10.8 [facility] Comment on above: Performed By: #### 2 470476, 4338389, 72519335, 04437452, 2208780, 7472810 ####[address] [address] Platelets (Bld) [#/Vol] 252.0 E9/L Normal 150.0-500.0 [facility] Comment on above: Performed By: #### 2 898349, 2601597, 85092671, 38249896, 6275748, 1600750 ####[address] [place] [address] RBC (Bld) [#/Vol] 5.1 E12/L Normal 4.3-5.9 [facility] Comment on above: Performed By: #### 2 790579, 7242558, 98453171, 96383449, 4866737, 7792673 ####[address] [address] WBC corrected for nucl RBC Auto (Bld) [#/Vol] 11.6 E9/L High 4.0-11.0 [facility] Comment on above: Performed By: #### 2 097641, 2009532, 43042852, 21867105, 7404058, 9173747 ####[facility] [address] [place] [address] CHEMISTRYOrdered By: SYSTEM SYSTEM on 01-21-2023 Troponin [...] 62 mL/min/1.73 m2 Normal >=59mL/min/ 1.73 m2 [facility] Chem S Globulin (S) [Mass/Vol] 3.8 g/dL [...] Treatmenton 12-24 Consent for Treatment [id number]#1 .00CD:127 Normal [facility] ED Clinical Summaryon 2022 ED Clinical Summary Normal [facility] ED Note-Physicianon 01-22-20 23 ED Note-Physician Normal [facility] Comment on above: Result Comment: Elec tronically Signed By: Gustavo Yusuf DO.br\Date and Time Signed: 01/21/23 19:26 EDT ED Patient Education Noteon 01-21-2023 ED Patient Education Note Normal [facility] ED Patient Summaryon 023 ED Patient Summary Normal [facility] HEMATOLOGYOrdered By: SYSTEM SYSTEM on 01-21-2023 Basophils/100 WBC (Bld) 0.9 % Normal 0.0 - 2.0 % [facility] HemeAutoSS Basophils/Leukocytes Auto (Bld) [Pure # fraction] [...] 5.1 E12/L Normal 4.3 - 5.9 E12/L [facility] HemeAutoSS WBC corrected for nucl RBC Auto (Bld) [#/Vol] 11.6 E9/L High 4.0 - 11.0 E9/L [facility] HemeAutoSS Hep Func Panelon 01-21-2023 Bilirubin.direct [Mass/Vol] 0.1 mg/dL Normal 0.1-0.4 [facility] Comment on above: Performed By: #### 2 530613, 7609179, 86849207, 04767883, 1524313, 9412339 ####[facility] [address] [place] [address] Bilirubin.indirect [Mass or moles/Vol] 0.8 mg/dL Normal 0.1-0.9 [facility] Comment on above: Performed By: #### 2 212429, 6417160, 04309082, 21751339, 4903415, 8533238 ####[facility] [address] [place] [address] Albumin [Mass/Vol] 3.9 g/dL Normal 3.3-5.0 [facility] Comment on above: Performed By: #### 2 128380, 8299211, 21484432, 48163835, 6523303, 2326436 ####[facility] [address] [place] [address] Albumin/Globulin (S) [Mass conc ratio] 1.0 Low 1.1-2.2 [facility] Comment on above: Performed By: #### 2 839931, 1920532, 95781288, 35816143, 7609886, 3634971 ####[facility] [address] [place] [address] ALP [Catalytic activity/Vol] 50 Int._Unit/L Normal 21-98 [facility] Comment on above: Performed By: #### 2 077392, 5310911, 97407578, 37238075, 7803702, 0230033 ####[facility] [address] [place] [address] ALT No additional P-5'-P [Catalytic activity/Vol] 23 Int._Unit/L Normal 6-46 [facility] Comment on above: Performed By: #### 2 646247, 0126861, 58637930, 49135352, 4482049, 8204166 ####[facility] [address] [place] [address] AST [Catalytic activity/Vol] 22 Int._Unit/L Normal 5-43 [facility] Comment on above: Performed By: #### 2 854719, 2865393, 99185487, 30758996, 7611944, 6311666 ####[facility] [address] [place] [address] Bilirubin [Mass/Vol] 0.9 mg/dL Normal 0.0-1.1 [facility] Comment on above: Performed By: #### 2 639190, 0532228, 41507697, 82150322, 8401502, 1520793 ####[facility] [address] [place] [address] Globulin (S) [Mass/Vol] 3.8 g/dL Normal 1.4-4.0 [facility] Comment on above: Performed By: #### 2 023101, 7764624, 00986132, 99987424, 7077419, 1845209 ####[facility] [address] [place] [address] Protein [Mass/Vol] 7.7 g/dL Normal 6.0-7.8 [facility] Comment on above: Performed By: #### 2 442680, 9274223, 81248203, 73975237, 2923588, 7488065 ####[facility] [address] [place] [address] Half-[address] Recordson 01-21 [facility] Records [id number]# 1.00CD:127 Normal [facility] Troponin 0 Hr.on 01-21-2023 Troponin I.cardiac [Mass/Vol] 25.50 pg/mL Normal 15.90-38.40 [facility] Comment on above: Result Comment: The 95% CI (Confidence Interval) PPV (Positive Predictive Value) for myocardial infarction in females is 38 pg/mL, in males 51 pg/mL. The results should be used in conjunction with clinical conditions of myocardial infarction.(Access High Sensitivity Troponin I Instructions For Use, [employer], December 2017) Performed By: #### 2 927459, 2178550, 13959275, 53511395, 3900308, 8076814 ####[facility] [address] [place] [address] Troponin 3 Hr.on 01-21-2023 Troponin I.cardiac [Mass/Vol] 23.90 pg/mL Normal 15.90-38.40 [facility] Comment on above: Result Comment: The 95% CI (Confidence Interval) PPV (Positive Predictive Value) for myocardial infarction in females is 38 pg/mL, in males 51 pg/mL. The results should be used in conjunction with clinical conditions of myocardial infarction.([place] High Sensitivity Troponin I Instructions For Use, [employer], December 2017) Performed By: #### 1 3024254 ####[address] [address] UA With Cult Reflexon 2022 Bilirubin Ql (U) Negative Normal Negative [facility] Comment on above: Performed By: #### 1 6579229 ####[place] 5855357 Clarity (U) CLEAR Normal Clear [facility] Comment on above: Performed By: #### 1 5959101 ####[address] [address] Color (U) STRAW Abnormal Yellow [facility] Comment on above: Performed By: #### 1 6668140 ####[address] [address] Epithelial cells.squamous LM.HPF (Urine sed) [#/Area] 0-2 Normal 0-2 [facility] Comment on above: Performed By: #### 1 0498648 ####[facility] [address] [place] [address] Glucose Test strip (U) [Mass/Vol] Negative Normal Negative [facility] Comment on above: Performed By: #### 1 3866212 ####[facility] [address]ef[address]143 [place] [address] Hemoglobin Ql (U) Negative Normal Negative [facility] Comment on above: Performed By: #### 1 7702236 ####[address] [address] Ketones (U) [Mass/Vol] Negative Normal Negative [facility] Comment on above: Performed By: #### 1 5301742 ####[address] [address] Oaks.plasma/Oaks.R BC (Bld) [Mass ratio] 0-3 Normal 0-3 [facility] Comment on above: Performed By: #### 1 7672434 ####[address] [address] Nitrite Ql (U) Negative Normal Negative [facility] Comment on above: Performed By: #### 1 4985739 ####[address] [address] pH (U) 6.0 [pH] Invalid Interpretation Code 5.0-9.0 [facility] Comment on above: Performed By: #### 1 9424764 ####[address] [address] Protein (U) [Mass/Vol] Negative Normal Negative [facility] Comment on above: Performed By: #### 1 6210118 ####[address] [address] Specific gravity (U) [Rel density] 1.010 Invalid Interpretation Code 1.005-1.030 [facility] Comment on above: Performed By: #### 1 6400527 ####[address] [address] Type of Urine collection method Clean Catch Normal [facility] Comment on above: Performed By: #### 1 8705957 ####[facility] [address] [place] 5515157 Urobilinogen Qn (U) 0.2 {Lei'U}/dL Normal 0.0-1.0 [facility] Comment on above: Performed By: #### 1 7251083 ####[facility] [address] [place] 5515157 WBC Auto Ql (U) Negative Normal Negative [facility] Comment on above: Performed By: #### 1 3159474 ####[facility] [address] [place] [address] WBC LM.HPF (Urine sed) [#/Area] 0-5 Normal 0-5 [facility] Comment on above: Performed By: #### 1 9130677 ####[facility] [address] [place], [place] [address] URINALYSISOrdered By: Karen Vergara on 01-21-2023 Bilirubin [...] PM) Normal Negative [facility] UA Auto SS Oaks.plasma/Oaks.R BC (Bld) [Mass ratio] 0-3 /HPF Normal 0-3/HPF [facility] UA Au to SS Nitrite Ql (U) Negative (01/21/23 4:41 PM) Normal Negative [facility] UA Auto SS pH (U) 6.0 *NA* (01/21/23 4:41 PM) Invalid Interpretation Code 5.0 - 9.0 [facility] UA Auto SS Protein (U) [Mass/Vol] Negative (01/21/23 4:41 PM) Normal Negative [facility] UA Auto SS Specific gravity (U) [Rel density] 1.010 *NA* (01/21/23 4:41 PM) Invalid Interpretation Code 1.005 - 1.030 [facility] UA Auto SS UA Spec Desc Clean Catch (01/21/23 4:41 PM) Normal [facility] UA Auto SS Urobilinogen Qn (U) 0.1408035 {Lei'U}/dL Normal 0.0 - 1.0 EU/dL [facility] UA Auto SS WBC Auto Ql (U) Negative (01/21/23 4:41 PM) Normal Negative [facility] UA Auto SS WBC LM.HPF (Urine sed) [#/Area] 0-5 /HPF Normal 0-5/HPF [facility] UA Auto SS XR Chest Single Viewon 01-21 XR Chest Single View Normal [facility] eGFRon 01-21-2023 GFR/1.73 sq M.predicted among non-blacks MDRD (S/P/Bld) [Vol rate/Area] 62 mL/min/1.73 m2 Normal >=59 [facility] Comment on above: Order Comment: Order added by Discern Expert. Result Comment: Machinist earnest kidney disease could be indicated at eGFR's of less than 60 mL/min/1.73m2. Kidney failure is indicated at less than 15 mL/min/1.73m2. Performed By: #### 2 147063, 7641416, 64281352, 79872829, 4475219, 8427286 ####[facility] [address] [place] [address] Discharge Instructionson Discharge Instructions [id number] .[id number]:127 Normal [facility] Capillary Glucose POCon 12-23 Glucose [Mass/Vol] 117 mg/dL High 55-99 [facility] Comment on above: Result Comment: Yazmin bri Meter Performed By: #### 2 64054734 ####[facility] [address] [place] [address] Family Medicine Office/Clini c Noteon 01-15-2023 Family Medicine Office/Clinic Note Normal [facility] Comment on above: Result Comment: Elec tronically Signed By: SHAISTA POTTS, Dennise.br\Date and Time Signed: 01/15/23 16:46 EDT Capillary Glucose POCon 12-23 Glucose [Mass/Vol] 121 mg/dL High 55-99 [facility] Comment on above: Result Comment: Yazmin bri Meter Performed By: #### 2 15985369 ####[facility] [address] [place] [address] Capillary Glucose POCon 12-23 Glucose [Mass/Vol] 127 mg/dL [address] Comment on above: Result Comment: Yazmin bri Meter Performed By: #### 2 12068597 ####[facility] [address] [place] [address] Capillary Glucose POCon 12-22 Glucose [Mass/Vol] 104 mg/dL [facility] 55-99 [facility] Comment on above: Result Comment: Yazmin bri Meter Performed By: #### 2 98523384 ####[facility] [address] [place] [address] Capillary Glucose POCon 12-22 Glucose [Mass/Vol] 121 mg/dL [facility] [address] Comment on above: Result Comment: Yazmin bri Meter Performed By: #### 2 86521346 ####[facility] [address] [place] [address] Capillary Glucose POCon 12-22 Glucose [Mass/Vol] 110 mg/dL High 55-99 [facility] Comment on above: Result Comment: Yazmin bri Meter Performed By: #### 2 90618526 ####[facility] [address] [place] [address] Capillary Glucose POCon 12-22 Glucose [Mass/Vol] 119 mg/dL High 55-99 [facility] Comment on above: Result Comment: Yazmin bri Meter Performed By: #### 2 08888589 ####[facility] [address] [place] [address] Capillary Glucose POCon 12-22 Glucose [Mass/Vol] 141 mg/dL High 55-99 [facility] Comment on above: Result Comment: Yazmin bri Meter Performed By: #### 2 55105873 ####[facility] [address] [place] [address] Capillary Glucose POCon 12-22 Glucose [Mass/Vol] 104 mg/dL High 55-99 [facility] Comment on above: Result Comment: Yazmin bri Meter Performed By: #### 2 74822354 ####[facility] [address] [place] [address] BMPon 12-30-2022 Calcium [Mass/Vol] 9.1 mg/dL Normal 8.9-11.1 [facility] Comment on above: Performed By: #### 7 08373120, 8891217, 38023736 ####[facility] [address] [place] [address] Anion gap [Moles/Vol] 18 mmol/L High 6-16 [facility] Comment on above: Performed By: #### 7 38847908, 9880911, 88380370 ####[facility] [address] [place] [address] Chloride [Moles/Vol] 91 mmol/L Low 101-111 [facility] Comment on above: Performed By: #### 7 28479105, 0747854, 71213694 ####[facility] [address] [place] [address] CO2 [Moles/Vol] 30 mmol/L Normal 21-31 [facility] Comment on above: Performed By: #### 7 74063240, 6487485, 06726852 ####[facility] [address] [place] [address] Creatinine [Mass/Vol] 1.3 mg/dL Normal 0.5-1.3 [facility] Comment on above: Performed By: #### 7 03819658, 5740053, 63575321 ####[facility] [address] [place] [address] Glucose [Mass/Vol] 171 mg/dL Normal 55-199 [facility] Comment on above: Result Comment: If t his glucose result represents a fasting glucose, interpretation should refer to the following reference range: 55-99 mg/dL Performed By: #### 7 42115400, 9037577, 88058297 ####[facility] [address] [place] [address] Potassium [Moles/Vol] 4.2 mmol/L Normal 3.5-5.3 [facility] Comment on above: Performed By: #### 7 75690290, 8487160, 23622931 ####[facility] [address] [place] [address] Sodium [Moles/Vol] 135 mmol/L Normal 135-145 [facility] Comment on above: Performed By: #### 7 81080739, 9366850, 62842419 ####[facility] [address] [place] [address] Urea nitrogen [Mass/Vol] 36 mg/dL High 5-21 [facility] Comment on above: Performed By: #### 7 14912663, 7819589, 58987609 ####[facility] [address] [place] [address] Urea nitrogen/Creatinine [Mass ratio] 28 No Units High 10-20 [facility] Comment on above: Performed By: #### 7 60255719, 8020200, 75294911 ####[facility] [address] [place] [address] ZvfL3ixf 12-30-2022 HbA1c (Bld) [Mass fraction] 6.9 % High <=5.9 [facility] Comment on above: Performed By: #### 7 44014939, 9035776, 41546349 ####[facility] [address] [place] [address] eGFRon 12-30-2022 GFR/1.73 sq M.predicted among non-blacks MDRD (S/P/Bld) [Vol rate/Area] 56 mL/min/1.73 m2 Low >=59 [facility] Comment on above: Order Comment: Order added by Discern Expert. Result Comment: Machinist earnest kidney disease could be indicated at eGFR's of less than 60 mL/min/1.73m2. Kidney failure is indicated at less than 15 mL/min/1.73m2. Performed By: #### 7 57066826, 6836623, 49948303 ####[facility] [address] [place] [address] Capillary Glucose POCon 08-0 Glucose [Mass/Vol] 141 mg/dL [address] Comment on above: Result Comment: Yazmin bri Meter Performed By: #### 2 78942873 ####[facility] [address] [place] [address] Capillary Glucose POCon 08-0 Glucose [Mass/Vol] 101 mg/dL [address] Comment on above: Result Comment: Yazmin bri Meter Performed By: #### 2 26349684 ####[facility] [address] [place] [address] C Blood Charcoalon 3 Blood Culture Charcoal Normal [facility] Comment on above: Performed By: #### 1 0427283 ####[facility] [address] [place] [address] Capillary Glucose POCon 08-0 Glucose [Mass/Vol] 135 mg/dL [address] Comment on above: Result Comment: Yazmin bri Meter Performed By: #### 2 18050153 ####[facility] Twq[address] [facility] [address] Capillary Glucose POCon 08-0 Glucose [Mass/Vol] 110 mg/dL High 55-99 [facility] Comment on above: Result Comment: Yazmin bri Meter Performed By: #### 2 89489844 ####[facility] [address] [place] [address] Consultation Noteon 12-24-19 Consultation Note Normal [facility] Comment on above: Result Comment: Elec tronically Signed By: Marcus POTTS, [place]\.br\Date and Time Signed: 12/23/22 07:33 EDT Family Medicine Office/Clini c Noteon 12-23-2022 Family Medicine Office/Clinic Note Normal [facility] Comment on above: Result Comment: Elec tronically Signed By: SHAISTA POTTS, Donta\.br\Date and Time Signed: 12/22/22 22:31 EDT C Blood Charcoalon Blood Culture Charcoal Normal [facility] Comment on above: Performed By: #### 1 1360920 ####[facility] [address] [place] [address] U Legi Agon 12-22-2022 L. pneumophila 1 Ag IA Ql (U) Negative Invalid Interpretation Code Negative [facility] Comment on above: Result Comment: Pres umptive negative for L. pneumophila serogroup 1 antigen in urine,suggesting no recent or current infection. Legionnaires' diseasecannot be ruled out since other serogroups and species may also causedisease.Performed at: [address] [id number] [place] Gurrola Performed By: #### 2 746397 ####[facility] [address] [place] [address] C Urineon 12-21-2022 Bacteria identified Cx Nom (U) Normal [facility] Comment on above: Performed By: #### 1 3308962, 9205099 ####[facility] [address] [place] [address] Capillary Glucose POCon 11-23 Glucose [Mass/Vol] 134 mg/dL High 55-99 [facility] Comment on above: Result Comment: Yazmin bri Meter Performed By: #### 2 32803294 ####[facility] [address] [address] Auto DiffOrdered By: SYSTEM SYSTEM on 12-20-2022 Basophils/100 WBC (Bld) 0.5 % Normal 0.0-2.0 F C HemeAutoSS Comment on above: Order Comment: Order Added by Discern Expert. Performed By: #### 2 945248, 1232102, 53830197, 3165472 ####[facility] [address] [address] Basophils/Leukocytes Auto (Bld) [Pure # fraction] 0.0 E9/L Normal 0.0-0.2 [facility] HemeAutoSS Comment on above: Order Comment: Order Added by Discern Expert. Performed By: #### 2 205396, 2154173, 84785792, 0937732 ####[address] [address] Eosinophils/100 WBC (Bld) 7.9 % Normal 0.0-8.0 FT HemeAutoSS Comment on above: Order Comment: Order Added by Discern Expert. Performed By: #### 2 420325, 1739612, 70085146, 4825548 ####[address] [address] Eosinophils/Leukocytes Auto (Bld) [Pure # fraction] 0.8 E9/L High 0.0-0.5 [facility] HemeAutoSS Comment on above: Order Comment: Order Added by Discern Expert. Performed By: #### 2 901247, 5796001, 03807804, 5365331 ####[address] [address] Lymphocytes/100 WBC (Bld) 9.5 % Low 14.0-50.0 [facility] HemeAutoSS Comment on above: Order Comment: Order Added by Discern Expert. Performed By: #### 2 491836, 7219733, 47418263, 1964390 ####[address] [address] Lymphocytes/Leukocytes Auto (Bld) [Pure # fraction] 1.0 E9/L Normal 1.0-4.0 FT HemeAutoSS Comment on above: Order Comment: Order Added by Discern Expert. Performed By: #### 2 262402, 2564701, 03994298, 9527532 ####[address] [address] Monocytes/100 WBC (Bld) 7.6 % Normal 4.0-14.0 [facility] HemeAutoSS Comment on above: Order Comment: Order Added by Discern Expert. Performed By: #### 2 416290, 5786284, 74845142, 5625251 ####[address] [address] Monocytes/Leukocytes Auto (Bld) [Pure # fraction] 0.8 E9/L Normal 0.2-1.0 [facility] HemeAutoSS Comment on above: Order Comment: Order Added by Discern Expert. Performed By: #### 2 364584, 7385518, 46484347, 1049947 ####[address] [address] Neutrophils/100 WBC (Bld) 74.5 % Normal 36.0-75.0 [facility] HemeAutoSS Comment on above: Order Comment: Order Added by Discern Expert. Performed By: #### 2 409498, 8403023, 11863791, 0461329 ####[address] [address] Neutrophils/Leukocytes Auto (Bld) [Pure # fraction] 7.7 E9/L High 2.0-7.5 [facility] HemeAutoSS Comment on above: Order Comment: Order Added by Discern Expert. Performed By: #### 2 121439, 1687288, 06654690, 5922367 ####[address] [address] BMPOrdered By: SYSTEM SYSTEM on 12-20-2022 Anion gap [Moles/Vol] 8 mmol/L Normal 6-16 [facility] C Remisol Comment on above: Performed By: #### 2 692356, 9612549, 51585718, 6307060 ####[place] [address] [place] [address] Calcium [Mass/Vol] 7.9 mg/dL Low 8.9-11.1 [facility] R emisol Comment on above: Performed By: #### 2 739023, 1080822, 48965304, 6509273 ####[facility] [address] [place] [address] Chloride [Moles/Vol] 105 mmol/L Normal 101-111 [facility] Remisol Comment on above: Performed By: #### 2 972655, 4434685, 39582285, 3225283 ####[facility] [address] [place] [address] CO2 [Moles/Vol] 25 mmol/L Normal 21-31 [facility] Ashwin luanne Comment on above: Performed By: #### 2 159930, 4287630, 28832197, 6215005 ####[facility] [address] [place] [address] Creatinine [Mass/Vol] 1.0 mg/dL Normal 0.5-1.3 [facility] Remisol Comment on above: Performed By: #### 2 783329, 2977552, 01652862, 8509297 ####[facility] [address] [place] [address] Glucose [Mass/Vol] 106 mg/dL Normal 55-199 [facility] R emisol Comment on above: Result Comment: If t his glucose result represents a fasting glucose, interpretation should refer to the following reference range: 55-99 mg/dL Performed By: #### 2 994791, 1135499, 85167086, 8225734 ####[facility] [address] [place] [address] Potassium [Moles/Vol] 4.4 mmol/L Normal 3.5-5.3 [facility] C Remisol Comment on above: Performed By: #### 2 421435, 2541093, 52215582, 1217947 ####[facility] [address] [place] [address] Sodium [Moles/Vol] 134 mmol/L Low 135-145 [facility] R emisol Comment on above: Performed By: #### 2 988307, 6361445, 80382067, 6660991 ####[facility] [address] [place] [address] Urea nitrogen [Mass/Vol] 22 mg/dL High 5-21 [facility] Remisol Comment on above: Performed By: #### 2 158205, 7284357, 44764080, 7330316 ####[address] [address] BMPon 12-20-2022 Urea nitrogen/Creatinine [Mass ratio] 22 No Units High 10-20 [facility] Comment on above: Performed By: #### 2 104297, 4135295, 93926762, 3100762 ####[address] [address] CBC w/ Auto DiffOrdered By: Bony Hdez on 12-20-2022 Erythrocyte distribution width (RBC) [Ratio] 14.7 % High 10.9-14.2 [facility] HemeAutoSS Comment on above: Performed By: #### 2 287912, 0642538, 24261679, 9390876 ####[address] [address] Hematocrit (Bld) [Volume fraction] 34.6 % Low 37.7-49.0 [facility] HemeAutoSS Comment on above: Performed By: #### 2 557122, 2864469, 68085668, 9293713 ####[address] [address] Hemoglobin (Bld) [Mass/Vol] 11.7 g/dL Low 13.5-17.5 [facility] HemeAutoSS Comment on above: Performed By: #### 2 073146, 5926286, 88951455, 6038542 ####[address] [address] MCH (RBC) [Entitic mass] 28.6 pg Normal 27.0-34.0 [facility] HemeAutoSS Comment on above: Performed By: #### 2 182715, 8643865, 34002723, 9062157 ####[place] [address] MCHC (RBC) [Mass/Vol] 33.7 g/dL Normal 31.4-36.0 [facility] C HemeAutoSS Comment on above: Performed By: #### 2 789404, 2937079, 30692029, 9261305 ####[place] [address] MCV (RBC) [Entitic vol] 84.7 fL Normal 80.0-100.0 F [facility] HemeAutoSS Comment on above: Performed By: #### 2 707112, 9545896, 19039174, 5548302 ####[place] [address] Platelet mean volume (Bld) [Entitic vol] 9.5 fL Normal 6.4-10.8 [facility] HemeAutoSS Comment on above: Performed By: #### 2 779269, 0472969, 58350874, 2834614 ####[facility] [place] [address] Platelets (Bld) [#/Vol] 216.0 E9/L Normal 150.0-500.0 [facility] HemeAutoSS Comment on above: Performed By: #### 2 465648, 1353820, 76709647, 8250828 ####[facility] [place] [address]7557 RBC (Bld) [#/Vol] 4.1 E12/L Low 4.3-5.9 [facility] HemeAutoSS Comment on above: Performed By: #### 2 390790, 9625080, 31170032, 5312137 ####[facility] [place] [address]57 WBC corrected for nucl RBC Auto (Bld) [#/Vol] 10.3 E9/L Normal 4.0-11.0 [facility] HemeAutoSS Comment on above: Performed By: #### 2 448955, 3135771, 25468014, 7998612 ####[facility] [address] [place] [address] CHEMISTRYOrdered By: Lab ROP User on 12-20-2022 Glucose [Mass/Vol] 109 mg/dL High 55 - 99 mg/dL [facility] POC Subsection Comment on above: Result Comment: Gareth guerrero RN/ POC Device SN [id number] Invalid Interpretation Code [facility] POC Subsection POC User ID [id number] Invalid Interpretation Code [facility] POC Subsection POC Username SAMANTHA LAMBERT Invalid Interpretation Code [facility] POC Subsection CHEMISTRYOrdered By: SYSTEM SYSTEM on 12-20-2022 Urea nitrogen/Creatinine [Mass ratio] 22 mg/mg High 10 - 20 [facility] Remisol Capillary Glucose POCon 11-23 Glucose [Mass/Vol] 198 mg/dL High 55-99 [facility] Comment on above: Result Comment: Ayzmin bri Meter Performed By: #### 2 59614389 ####[facility] [address] [place] [address] Glucose [Mass/Vol] 109 mg/dL High 55-99 [facility] Comment on above: Result Comment: Gareth GARDINER Performed By: #### 2 89196809 ####[facility] [address] [place] [address] Discharge Documentationon Discharge Documentation [id number]#1 .00CD:127 Normal [facility] Inpatient Patient Summaryon 12-20-2022 Inpatient Patient Summary Normal [facility] Message from Medicareon 11-23 Message from Medicare [id number]# 1.00CD:127 Normal [facility] Monitor Recordon 12-20-2022 Monitor Record [id number]# 1.00CD:127 Normal [facility] Monitor Record [id number]# 1.00CD:127 Normal [facility] Monitor Record [id number]# 1.00CD:127 Normal [facility] Progress Note-Nurseon 2022 Progress Note-Nurse SBAR report called fanta Robert. Patient was transferred into wheelchair x2 stand pivot. Patient discharged to [facility] room 17. Transport by Samantha [place] POCT. Normal [facility] Transfer Documentson 023 Transfer Documents [id number]#1 .00CD:127 Normal [facility] eGFROrdered By: SYSTEM MileWiseE Isai on 12-20-2022 GFR/1.73 sq M.predicted among non-blacks MDRD (S/P/Bld) [Vol rate/Area] 77 mL/min/1.73 m2 Normal >=59 [facility] Chem S Comment on above: Order Comment: Order added by Discern Expert. Result Comment: Machinist earnest kidney disease could be indicated at eGFR's of less than 60 mL/min/1.73m2. Kidney failure is indicated at less than 15 mL/min/1.73m2. Performed By: #### 2 563563, 5408290, 50695003, 5332722 ####[facility] [address] [place] [address] Auto Diffon 12-19-2022 Basophils/100 WBC (Bld) 0.4 % Normal 0.0-2.0 [facility] Comment on above: Order Comment: Order Added by Discern Expert. Performed By: #### 1 3500125, 6922416, 3953493, 0842637 ####[facility] [address] [place] [address] Basophils/Leukocytes Auto (Bld) [Pure # fraction] 0.0 E9/L Normal 0.0-0.2 [facility] Comment on above: Order Comment: Order Added by Discern Expert. Performed By: #### 1 7149278, 5016112, 3627594, 7904172 ####[facility] [address] [place] [address] Eosinophils/100 WBC (Bld) 4.2 % Normal 0.0-8.0 [facility] Comment on above: Order Comment: Order Added by Discern Expert. Performed By: #### 1 4095962, 1415671, 9058841, 4816377 ####[address] [place] [address] Eosinophils/Leukocytes Auto (Bld) [Pure # fraction] 0.6 E9/L High 0.0-0.5 [facility] Comment on above: Order Comment: Order Added by Discern Expert. Performed By: #### 1 1919604, 3126166, 6800277, 3382271 ####[address] [address] Lymphocytes/100 WBC (Bld) 7.3 % Low 14.0-50.0 [facility] Comment on above: Order Comment: Order Added by Bethany Expert. Performed By: #### 1 8474179, 8781241, 2938603, 7160976 ####[address] [address] Lymphocytes/Leukocytes Auto (Bld) [Pure # fraction] 1.0 E9/L Normal 1.0-4.0 [facility] Comment on above: Order Comment: Order Added by Bethany Expert. Performed By: #### 1 2423025, 9200377, 7293052, 7057270 ####[address] [address] Monocytes/100 WBC (Bld) 6.5 % Normal 4.0-14.0 [facility] Comment on above: Order Comment: Order Added by Discern Expert. Performed By: #### 1 9157098, 2631261, 5803880, 7436369 ####[address] [address] Monocytes/Leukocytes Auto (Bld) [Pure # fraction] 0.9 E9/L Normal 0.2-1.0 [facility] Comment on above: Order Comment: Order Added by Bethany Expert. Performed By: #### 1 7203041, 9511738, 4912566, 1064641 ####[address] [place] [address] Neutrophils/100 WBC (Bld) 81.6 % High 36.0-75.0 [facility] Comment on above: Order Comment: Order Added by Discern Expert. Performed By: #### 1 8163597, 7379047, 5472279, 9151875 ####[facility] [address] [place] [address] Neutrophils/Leukocytes Auto (Bld) [Pure # fraction] 10.7 E9/L High 2.0-7.5 [facility] Comment on above: Order Comment: Order Added by Discern Expert. Performed By: #### 1 0392507, 2181368, 4051127, 2902727 ####[facility] [address] [place] [address] BMPon 12-19-2022 Anion gap [Moles/Vol] 11 mmol/L Normal 6-16 [facility] Comment on above: Performed By: #### 1 7421647, 0377919, 2627259, 6866390 ####[facility] [address] [place] [address] Calcium [Mass/Vol] 8.5 mg/dL Low 8.9-11.1 [facility] Comment on above: Performed By: #### 1 0664384, 2111171, 7670706, 6556290 ####[facility] [address] [place] [address] Chloride [Moles/Vol] 103 mmol/L Normal 101-111 [facility] Comment on above: Performed By: #### 1 1312702, 6085869, 8086346, 5050629 ####[facility] [address] [place] [address] CO2 [Moles/Vol] 28 mmol/L Normal 21-31 [facility] Comment on above: Performed By: #### 1 8056984, 9530408, 0580516, 9319522 ####[facility] [address] [place] [address] Creatinine [Mass/Vol] 1.2 mg/dL Normal 0.5-1.3 [facility] Comment on above: Performed By: #### 1 1849304, 9192460, 8220021, 6839547 ####[facility] [address] [place] [address] Glucose [Mass/Vol] 86 mg/dL Normal 55-199 [facility] Comment on above: Result Comment: If t his glucose result represents a fasting glucose, interpretation should refer to the following reference range: 55-99 mg/dL Performed By: #### 1 0746433, 7709527, 5645111, 4095152 ####[facility] [address] [place] [address] Potassium [Moles/Vol] 4.5 mmol/L Normal 3.5-5.3 [facility] Comment on above: Performed By: #### 1 3806809, 6469885, 5541693, 7257957 ####[facility] [address] [place] [address] Sodium [Moles/Vol] 137 mmol/L Normal 135-145 [facility] Comment on above: Performed By: #### 1 7177658, 9184660, 7562089, 5377045 ####[facility] [address] [place] [address] Urea nitrogen [Mass/Vol] 35 mg/dL High 5-21 [facility] Comment on above: Performed By: #### 1 7718559, 9430545, 2217470, 6263330 ####[facility] [address] [place] [address] Urea nitrogen/Creatinine [Mass ratio] 29 No Units High 10-20 [facility] Comment on above: Performed By: #### 1 7116251, 3102374, 5503810, 2903715 ####[facility] [address] [place] [address] CBC w/ Auto Diffon 3 Erythrocyte distribution width (RBC) [Ratio] 15.0 % High 10.9-14.2 [facility] Comment on above: Performed By: #### 1 2011598, 9387408, 3348572, 6468861 ####[facility] [address] [place] [address] Hematocrit (Bld) [Volume fraction] 38.4 % Normal 37.7-49.0 [facility] Comment on above: Performed By: #### 1 3653777, 3684027, 9020510, 5035606 ####[address] [place] [address] Hemoglobin (Bld) [Mass/Vol] 12.7 g/dL Low 13.5-17.5 [facility] Comment on above: Performed By: #### 1 5762023, 3690566, 8898409, 8736786 ####[address] [address] MCH (RBC) [Entitic mass] 27.9 pg Normal 27.0-34.0 [facility] Comment on above: Performed By: #### 1 1272732, 4276265, 8867068, 3710600 ####[address] [address] MCHC (RBC) [Mass/Vol] 32.9 g/dL Normal 31.4-36.0 [facility] Comment on above: Performed By: #### 1 6259005, 4342698, 4847784, 4266478 ####[address] [address] MCV (RBC) [Entitic vol] 84.8 fL Normal 80.0-100.0 [facility] Comment on above: Performed By: #### 1 6642874, 2333874, 6013463, 5353652 ####[address] [place] [address] Platelet mean volume (Bld) [Entitic vol] 9.5 fL Normal 6.4-10.8 [facility] Comment on above: Performed By: #### 1 1677968, 1593834, 8577397, 4260582 ####[address] [address] Platelets (Bld) [#/Vol] 230.0 E9/L Normal 150.0-500.0 [facility] Comment on above: Performed By: #### 1 9545981, 8652064, 9807029, 1893003 ####[facility] [address] [place] [address] RBC (Bld) [#/Vol] 4.5 E12/L Normal 4.3-5.9 [facility] Comment on above: Performed By: #### 1 2743607, 8270011, 4228090, 9180012 ####[facility] [address] [place] [address] WBC corrected for nucl RBC Auto (Bld) [#/Vol] 13.1 E9/L High 4.0-11.0 [facility] Comment on above: Performed By: #### 1 3364535, 5468309, 4883920, 3737392 ####[facility] [address] [place] [address] CHEMISTRYOrdered By: Lab ROP User on 12-19-2022 Glucose [Mass/Vol] 210 mg/dL High 55 - 99 mg/dL [facility] POC Subsection Comment on above: Result Comment: Gareth guerrero RN/ POC Device SN [id number] Invalid Interpretation Code FT POC Subsection POC User ID [id number] Invalid Interpretation Code [facility] POC Subsection POC Username SHER GAVIRIA Invalid Interpretation Code FT POC Subsection Glucose [Mass/Vol] 111 mg/dL High 55 - 99 mg/dL [facility] POC Subsection Comment on above: Result Comment: Gareth guerrero RN/ POC Device SN [id number] Invalid Interpretation Code FT POC Subsection POC User ID [id number] Invalid Interpretation Code FT POC Subsection POC Username KELLEN HERNANDEZ Invalid Interpretation Code [facility] POC Subsection CHEMISTRYOrdered By: SYSTEM SYSTEM on 12-19-2022 Anion gap [Moles/Vol] 11 mmol/L Normal 6 - 16 mEq/L [facility] Calcium [Mass/Vol] 8.5 mg/dL Low 8.9 - 11. 1 mg/dL [facility] Chloride [Moles/Vol] 103 mmol/L Normal 101 - 1 11 mmol/L [facility] CO2 [Moles/Vol] 28 mmol/L Normal 21 - 31 mmol/L [facility] Remisol Creatinine [Mass/Vol] 1.2 mg/dL Normal 0.5 - 1.3 mg/dL [facility] Remisol GFR/1.73 sq M.predicted among non-blacks MDRD (S/P/Bld) [Vol rate/Area] 62 mL/min/1.73 m2 Normal >=59mL/min/ 1.73 m2 [facility] Chem S Glucose [Mass/Vol] 86 mg/dL Normal 55 - 199 mg/dL [facility] Remisol Potassium [Moles/Vol] 4.5 mmol/L Normal 3.5 - 5.3 mmol/L [facility] Remisol Sodium [Moles/Vol] 137 mmol/L Normal 135 - 145 mmol/L [facility] Remisol Urea nitrogen [Mass/Vol] 35 mg/dL High 5 - 21 mg/dL [facility] Remisol Urea nitrogen/Creatinine [Mass ratio] 29 mg/mg High 10 - 20 [facility] Remisol Capillary Glucose POCon 11-22 Glucose [Mass/Vol] 210 mg/dL High 55-99 [facility] Comment on above: Result Comment: Gareth GARDINER Performed By: #### 2 [id number] ####[facility] [address] [place] [address] Glucose [Mass/Vol] 111 mg/dL High 55-99 [facility] Comment on above: Result Comment: Gareth GARDINER Performed By: #### 2 31729623 ####[facility] [address] [place] [address] Glucose [Mass/Vol] 201 mg/dL High 55-99 [facility] Comment on above: Result Comment: Gareth GARDINER Performed By: #### 2 51433587 ####[facility] [address] [place] [address] Glucose [Mass/Vol] 93 mg/dL Normal 55-99 [facility] Comment on above: Result Comment: Gareth GARDINER Performed By: #### 2 74282726 ####[facility] [address] [place] [address] HEMATOLOGYOrdered By: hint SYSTEM on 12-19-2022 Basophils/100 WBC (Bld) 0.4 [...] 84.8 fL Normal 80.0 - 100.0 fL [facility] HemeAutoSS Platelet mean volume (Bld) [Entitic vol] 9.5 fL Normal 6.4 - 10.8 fL [facility] HemeAutoSS Platelets (Bld) [#/Vol] 230.0 E9/L Normal 150. 0 - 500.0 E9/L [facility] HemeAutoSS RBC (Bld) [#/Vol] 4.5 E12/L Normal 4.3 - 5.9 E12/L [facility] HemeAutoSS WBC corrected for nucl RBC Auto (Bld) [#/Vol] 13.1 E9/L High 4.0 - 11.0 E9/L [facility] HemeAutoSS Monitor Recordon 12-19-2022 Monitor Record [id number]# 1.00CD:127 Normal [facility] Monitor Record [id number]# 1.00CD:127 Normal [facility] Progress Note-Physicianon Progress Note-Physician Normal [facility] Comment on above: Result Comment: Elec tronically Signed By: MICHAEL POTTS, Jamir\.br\Date and Time Signed: 12/19/22 09:47 EDT eGFRon 12-19-2022 GFR/1.73 sq M.predicted among non-blacks MDRD (S/P/Bld) [Vol rate/Area] 62 mL/min/1.73 m2 Normal >=59 [facility] Comment on above: Order Comment: Order added by Discern Expert. Result Comment: Machinist earnest kidney disease could be indicated at eGFR's of less than 60 mL/min/1.73m2. Kidney failure is indicated at less than 15 mL/min/1.73m2. Performed By: #### 1 2206275, 5826261, 0253301, 0247674 ####[facility] [address] [place] [address] Auto Diffon 12-18-2022 Basophils/100 WBC (Bld) 0.4 % Normal 0.0-2.0 [facility] Comment on above: Order Comment: Order Added by Discern Expert. Performed By: #### 2 585678, 2201862 ####[facility] [address] [place] [address] Basophils/Leukocytes Auto (Bld) [Pure # fraction] 0.1 E9/L Normal 0.0-0.2 [facility] Comment on above: Order Comment: Order Added by Discern Expert. Performed By: #### 2 849931, 7185943 ####[address] [address] Eosinophils/100 WBC (Bld) 2.8 % Normal 0.0-8.0 [facility] Comment on above: Order Comment: Order Added by Discern Expert. Performed By: #### 2 479168, 3013462 ####[address] [address] Eosinophils/Leukocytes Auto (Bld) [Pure # fraction] 0.4 E9/L Normal 0.0-0.5 [facility] Comment on above: Order Comment: Order Added by Discern Expert. Performed By: #### 2 536917, 6292689 ####[address] [address] Lymphocytes/100 WBC (Bld) 9.0 % Low 14.0-50.0 [facility] Comment on above: Order Comment: Order Added by Bethany Expert. Performed By: #### 2 552747, 3145012 ####[address] [address] Lymphocytes/Leukocytes Auto (Bld) [Pure # fraction] 1.3 E9/L Normal 1.0-4.0 [facility] Comment on above: Order Comment: Order Added by Discern Expert. Performed By: #### 2 221983, 2238183 ####[address] [address] Monocytes/100 WBC (Bld) 8.3 % Normal 4.0-14.0 [facility] Comment on above: Order Comment: Order Added by Discern Expert. Performed By: #### 2 810888, 2066194 ####[address] [place] [address] Monocytes/Leukocytes Auto (Bld) [Pure # fraction] 1.3 E9/L High 0.2-1.0 [facility] Comment on above: Order Comment: Order Added by Discern Expert. Performed By: #### 2 079349, 2090996 ####[address] [place] [address] Neutrophils/100 WBC (Bld) 79.5 % High 36.0-75.0 [facility] Comment on above: Order Comment: Order Added by Discern Expert. Performed By: #### 2 960797, 3295856 ####[address] [address] Neutrophils/Leukocytes Auto (Bld) [Pure # fraction] 11.9 E9/L High 2.0-7.5 [facility] Comment on above: Order Comment: Order Added by Discern Expert. Performed By: #### 2 330286, 0122115 ####[address] [address] Basophils/100 WBC (Bld) 0.6 % Normal 0.0-2.0 [facility] Comment on above: Order Comment: Order Added by Discern Expert. Performed By: #### 1 7954730, 3645762, 13856956, 6575761, 01850771, 37899340, 4755395 ####[address] [place] [address] Basophils/Leukocytes Auto (Bld) [Pure # fraction] 0.1 E9/L Normal 0.0-0.2 [facility] Comment on above: Order Comment: Order Added by Discern Expert. Performed By: #### 1 1269666, 5102558, 68827047, 4326334, 63824249, 42754316, 3782243 ####[address] [place] [address] Eosinophils/100 WBC (Bld) 2.0 % Normal 0.0-8.0 [facility] Comment on above: Order Comment: Order Added by Discern Expert. Performed By: #### 1 0458512, 8661355, 26217760, 8886701, 50368782, 48920838, 6105736 ####[address] [place] [address] Eosinophils/Leukocytes Auto (Bld) [Pure # fraction] 0.3 E9/L Normal 0.0-0.5 [facility] Comment on above: Order Comment: Order Added by Discern Expert. Performed By: #### 1 2440185, 0031389, 47954816, 1633936, 14416071, 47212382, 0650238 ####[address] [place] [address] Lymphocytes/100 WBC (Bld) 7.6 % Low 14.0-50.0 [facility] Comment on above: Order Comment: Order Added by Bethany Expert. Performed By: #### 1 5527207, 7704162, 69243610, 7345461, 87949984, 53730718, 0331859 ####[address] [address] Lymphocytes/Leukocytes Auto (Bld) [Pure # fraction] 1.3 E9/L Normal 1.0-4.0 [facility] Comment on above: Order Comment: Order Added by Bethany Expert. Performed By: #### 1 1539189, 9215777, 45130651, 0468586, 18013173, 38246871, 1483950 ####[address] [place] [address] Monocytes/100 WBC (Bld) 7.8 % Normal 4.0-14.0 [facility] Comment on above: Order Comment: Order Added by Bethany Expert. Performed By: #### 1 6740331, 9712815, 83316011, 2629133, 29650708, 37522897, 4655978 ####[address] [place] [address] Monocytes/Leukocytes Auto (Bld) [Pure # fraction] 1.3 E9/L High 0.2-1.0 [facility] Comment on above: Order Comment: Order Added by Discern Expert. Performed By: #### 1 0291438, 8455728, 33274722, 8603568, 11500009, 86924985, 3647985 ####[facility] [address] [place] [address] Neutrophils/100 WBC (Bld) 82.0 % High 36.0-75.0 [facility] Comment on above: Order Comment: Order Added by Discern Expert. Performed By: #### 1 4353605, 0142510, 24839931, 4016039, 76127889, 31250384, 9245343 ####[facility] [address] [place] [address] Neutrophils/Leukocytes Auto (Bld) [Pure # fraction] 13.7 E9/L High 2.0-7.5 [facility] Comment on above: Order Comment: Order Added by Bethany Expert. Performed By: #### 1 8396381, 0087495, 74173187, 5127266, 54957386, 82040544, 1970745 ####[facility] [address] [place] [address] BMPon 12-18-2022 Creatinine [Mass/Vol] 1.6 mg/dL High 0.5-1.3 [facility] Comment on above: Performed By: #### 2 137343, 7920709, 6332055077, 26467013, 40064975 ####[facility] [address] [place] [address] Urea nitrogen [Mass/Vol] 47 mg/dL High 5-21 [facility] Comment on above: Performed By: #### 2 279592, 1625107, 0494516750, 76636979, 76522550 ####[facility] [address] [place] [address] Urea nitrogen/Creatinine [Mass ratio] 29 No Units High 10-20 [facility] Comment on above: Performed By: #### 2 604599, 6763019, 9158580508, 43918711, 76667778 ####[facility] [address] [place] [address] Anion gap [Moles/Vol] 12 mmol/L Normal 6-16 [facility] Comment on above: Performed By: #### 2 892999, 6576475, 3028930003, 60166813, 64583638 ####[facility] [address] [place] [address] Calcium [Mass/Vol] 8.7 mg/dL Low 8.9-11.1 [facility] Comment on above: Performed By: #### 2 736236, 6152448, 8614034809, 41596543, 40591778 ####[facility] [address] [place] [address] Chloride [Moles/Vol] 97 mmol/L Low 101-111 [facility] Comment on above: Performed By: #### 2 054476, 4163488, 0364747616, 78459929, 58509651 ####[facility] [address] [place] [address] CO2 [Moles/Vol] 32 mmol/L High 21-31 [facility] Comment on above: Performed By: #### 2 715365, 0166159, 8550108923, 04715680, 79857594 ####[facility] [address] [place] [address] Glucose [Mass/Vol] 131 mg/dL Normal 55-199 [facility] Comment on above: Result Comment: If t his glucose result represents a fasting glucose, interpretation should refer to the following reference range: 55-99 mg/dL Performed By: #### 2 246886, 3239088, 9250399102, 54101349, 74896593 ####[facility] [address] [place] [address] Potassium [Moles/Vol] 3.7 mmol/L Normal 3.5-5.3 [facility] Comment on above: Performed By: #### 2 277408, 5720771, 7911925160, 47941080, 01242916 ####[facility] [address] [place] [address] Sodium [Moles/Vol] 137 mmol/L Normal 135-145 [facility] Comment on above: Performed By: #### 2 587504, 5800217, 2259571232, 85276567, 07312310 ####[facility] [address] [place] [address] Creatinine [Mass/Vol] 1.8 mg/dL High 0.5-1.3 [facility] Comment on above: Performed By: #### 1 6861361, 0097451, 54585565, 4025537, 71641471, 82029012, 0189171 ####[facility] [address] [place] [address] Urea nitrogen [Mass/Vol] 49 mg/dL High 5-21 [facility] Comment on above: Performed By: #### 1 5503823, 5057055, 45637376, 2095037, 45858606, 58477922, 6698910 ####[facility] [address] [place] [address] Urea nitrogen/Creatinine [Mass ratio] 27 No Units High 10-20 [facility] Comment on above: Performed By: #### 1 9275226, 5121392, 94707539, 8741276, 81983648, 93335625, 6891364 ####[facility] [address] [place] [address] Anion gap [Moles/Vol] 18 mmol/L High 6-16 [facility] Comment on above: Performed By: #### 1 6984214, 9706910, 53588655, 7951530, 34033575, 08101851, 0351445 ####[facility] [address] [place] [address] Calcium [Mass/Vol] 9.3 mg/dL Normal 8.9-11.1 [facility] Comment on above: Performed By: #### 1 0694420, 4441118, 42538428, 7504221, 13201694, 60546967, 7516970 ####[facility] [address] [place] [address] Chloride [Moles/Vol] 93 mmol/L Low 101-111 [facility] Comment on above: Performed By: #### 1 1446844, 8601057, 72808519, 1614587, 00076749, 26969085, 7146662 ####[facility] [address] [place] [address] CO2 [Moles/Vol] 29 mmol/L Normal 21-31 [facility] Comment on above: Performed By: #### 1 8550508, 1389375, 08785517, 1287215, 73160373, 31047641, 2009865 ####[facility] [address] [place] [address] Glucose [Mass/Vol] 137 mg/dL Normal 55-199 [facility] Comment on above: Result Comment: If t his glucose result represents a fasting glucose, interpretation should refer to the following reference range: 55-99 mg/dL Performed By: #### 1 9127958, 8243193, 79825878, 9597592, 20223117, 80507428, 3888613 ####[facility] [address] [place] [address] Potassium [Moles/Vol] 4.0 mmol/L Normal 3.5-5.3 [facility] Comment on above: Performed By: #### 1 6113314, 7896478, 85081363, 2772566, 35624766, 83315186, 6667921 ####[facility] [address] [place] [address] Sodium [Moles/Vol] 136 mmol/L Normal 135-145 [facility] Comment on above: Performed By: #### 1 4136005, 9977680, 89059108, 1267650, 94781351, 48649249, 5508994 ####[facility] [address] [place] [address] BNPon 12-18-2022 Int Ctr BNP Pass Normal [facility] Comment on above: Performed By: #### 1 8614004, 2554449, 75595893, 3001159, 86700795, 85633377, 6596719 ####[facility] [address] [place] [address] Natriuretic peptide B (Bld) [Mass/Vol] 219 pg/mL High 5-80 [facility] Comment on above: Performed By: #### 1 8158916, 5195863, 81021692, 9057576, 27573474, 74650362, 4152670 ####[facility] [address] [place] [address] CBC w/ Auto Diffon Erythrocyte distribution width (RBC) [Ratio] 14.8 % High 10.9-14.2 [facility] Comment on above: Performed By: #### 2 210015, 6953816 ####[place] Hematocrit (Bld) [Volume fraction] 37.8 % Normal 37.7-49.0 [facility] Comment on above: Performed By: #### 2 764198, 0907157 ####[address] [address] Hemoglobin (Bld) [Mass/Vol] 12.7 g/dL Low 13.5-17.5 [facility] Comment on above: Performed By: #### 2 531464, 6414161 ####[address] [place] [address] MCH (RBC) [Entitic mass] 28.3 pg Normal 27.0-34.0 [facility] Comment on above: Performed By: #### 2 495469, 2275842 ####[address] [place] [address] MCHC (RBC) [Mass/Vol] 33.6 g/dL Normal 31.4-36.0 [facility] Comment on above: Performed By: #### 2 147456, 4000672 ####[facility] [address] [place] [address] MCV (RBC) [Entitic vol] 84.2 fL Normal 80.0-100.0 [facility] Comment on above: Performed By: #### 2 476043, 4957519 ####[address] [address] Platelet mean volume (Bld) [Entitic vol] 9.2 fL Normal 6.4-10.8 [facility] Comment on above: Performed By: #### 2 071739, 6757658 ####[address] [address] Platelets (Bld) [#/Vol] 219.0 E9/L Normal 150.0-500.0 [facility] Comment on above: Performed By: #### 2 559876, 7700988 ####[address] [address] RBC (Bld) [#/Vol] 4.5 E12/L Normal 4.3-5.9 [facility] Comment on above: Performed By: #### 2 818625, 9433435 ####[address] [address] WBC corrected for nucl RBC Auto (Bld) [#/Vol] 15.0 E9/L High 4.0-11.0 [facility] Comment on above: Performed By: #### 2 106427, 1415818 ####[address] [address] Erythrocyte distribution width (RBC) [Ratio] 14.9 % High 10.9-14.2 [facility] Comment on above: Performed By: #### 1 4459200, 9667104, 60666908, 7566681, 51606933, 68915447, 0367916 ####[address] [place] [address] Hematocrit (Bld) [Volume fraction] 42.8 % Normal 37.7-49.0 [facility] Comment on above: Performed By: #### 1 6750409, 5263303, 51043200, 9306201, 92245532, 20598560, 4976479 ####[facility] [address] [place] [address] Hemoglobin (Bld) [Mass/Vol] 14.3 g/dL Normal 13.5-17.5 [facility] Comment on above: Performed By: #### 1 9383757, 1078929, 52875137, 2066235, 04805142, 67491581, 3060363 ####[facility] [address] [place] [address] MCH (RBC) [Entitic mass] 28.1 pg Normal 27.0-34.0 [facility] Comment on above: Performed By: #### 1 2986164, 2398693, 20497114, 9857893, 15761643, 58884857, 0808195 ####[facility] [address] [place], [place] [address] MCHC (RBC) [Mass/Vol] 33.3 g/dL Normal 31.4-36.0 [facility] Comment on above: Performed By: #### 1 2221913, 6550497, 92587556, 9691738, 65366489, 70637664, 4530186 ####[facility] [address] [place] [address] MCV (RBC) [Entitic vol] 84.3 fL Normal 80.0-100.0 [facility] Comment on above: Performed By: #### 1 5417854, 1403108, 35293767, 2370629, 46180266, 94331441, 7639741 ####[address] [place] [address] Platelet mean volume (Bld) [Entitic vol] 9.8 fL Normal 6.4-10.8 [facility] Comment on above: Performed By: #### 1 9884326, 1157318, 30592251, 1547049, 78014875, 89649847, 2433525 ####[facility] [address] [place] [address] Platelets (Bld) [#/Vol] 234.0 E9/L Normal 150.0-500.0 [facility] Comment on above: Performed By: #### 1 8421137, 9817792, 31457243, 1796917, 04801693, 33927415, 3533677 ####[facility] [address] [place] [address] RBC (Bld) [#/Vol] 5.1 E12/L Normal 4.3-5.9 [facility] Comment on above: Performed By: #### 1 9104286, 9530156, 74511563, 1448968, 58751201, 72646536, 7634631 ####[facility] [address] [place] [address] WBC corrected for nucl RBC Auto (Bld) [#/Vol] 16.7 E9/L High 4.0-11.0 [facility] Comment on above: Result Comment: Slid e reviewed by JENNIFER. Performed By: #### 1 5573417, 6886541, 99700879, 8432628, 71991002, 66768372, 4449738 ####[facility] [address] [place] [address] CHEMISTRYOrdered By: SYSTEM SYSTEM on 12-18-2022 Troponin [...] 1.6 mg/dL High 0.5 - 1.3 mg/dL [facility] Remisol GFR/1.73 sq M.predicted among non-blacks MDRD (S/P/Bld) [Vol rate/Area] 44 mL/min/1.73 m2 Low >=59mL/min/ 1.73 m2 [facility] Chem S Glucose [Mass/Vol] 131 mg/dL Normal 55 - 199 mg/dL FT Remisol Potassium [Moles/Vol] 3.7 mmol/L Normal 3.5 - 5.3 mmol/L FT Remisol Procalcitonin 0.09 ng/mL Normal 0.00 - 0.50 ng/mL [facility] Remisol Sodium [Moles/Vol] 137 mmol/L Normal 135 - 145 mmol/L [facility] Remisol Troponin I.cardiac [Mass/Vol] 22.50 pg/mL Normal 15.90 - 38.40 pg/mL [facility] Remisol Urea nitrogen [Mass/Vol] 47 mg/dL High 5 - 21 mg/dL [facility] Remisol Urea nitrogen/Creatinine [Mass ratio] 29 mg/mg High 10 - 20 [facility] Remisol CHEMISTRYOrdered By: Yanet Apodaca on 12-18-2022 Troponin I.cardiac [Mass/Vol] 18.80 pg/mL Normal 15.90 - 38.40 pg/mL [facility] Remisol Natriuretic peptide B (Bld) [Mass/Vol] 219 pg/mL High 5 - 80 pg/mL [facility] HemeManSS CKon 12-18-2022 CK [Catalytic activity/Vol] 55 Int._Unit/L Normal 14-261 [facility] Comment on above: Performed By: #### 2 306502, 5547978, 8365952446, 85621465, 42003002 ####[facility] [address] [place] [address] COAGULATIONOrdered By: Rachael Apodaca on 12-18-2022 aPTT Coag (PPP) [Time] 30.6 s Normal 25.1 - 36.5 second(s) [facility] Auto Coag INR Coag (PPP) [Relative time] 1.1 {INR} Invalid Interpretation Code FT Auto Coag PT Coag (PPP) [Time] 12.5 s Normal 9.4 - 1 2.5 second(s) [facility] Auto Coag CT Head or Brain w/o Contras ton 12-18-2022 CT Head or Brain w/o Contrast Normal [facility] CT Spine Cervical w/o Contra ston 12-18-2022 CT Spine Cervical w/o Contrast Normal [facility] Capillary Glucose POCon 11-22 Glucose [Mass/Vol] 212 mg/dL High 55-99 [facility] Comment on above: Result Comment: Gareth GARDINER Performed By: #### 2 08433485 ####[facility] [address] [place] [address] Glucose [Mass/Vol] 97 mg/dL Normal 55-99 [facility] Comment on above: Result Comment: Yazmin bri Meter Performed By: #### 2 38358035 ####[facility] [address] [place] [address] Glucose [Mass/Vol] 119 mg/dL High 55-99 [facility] Comment on above: Result Comment: Gareth GARDINER Performed By: #### 2 76479682 ####[facility] [address] [place] [address] Glucose [Mass/Vol] 131 mg/dL High 55-99 [facility] Comment on above: Result Comment: Gareth GARDINER Performed By: #### 2 61042398 ####[facility] [address] [place] [address] Consent for Treatmenton 11-22 Consent for Treatment [id number]# 1.00CD:127 Normal [facility] ED Clinical Summaryon 2022 ED Clinical Summary Normal [facility] ED Note-Physicianon 12-19-19 ED Note-Physician Normal [facility] Comment on above: Result Comment: Elec tronically Signed By: Guilherme POTTS, Malcom\.br\Date and Time Signed: 12/18/22 04:33 EDT ED Patient Education Noteon 07-28-2023 ED Patient Education Note Normal [facility] ED Patient Summaryon 023 ED Patient Summary Normal [facility] ED Traumaon 12-18-2022 ED Trauma [id number]# 1.00CD:127 Normal [facility] HEMATOLOGYOrdered By: SYSTEM SYSTEM on 12-18-2022 [...] 15.0 E9/L High 4.0 - 11.0 E9/L [facility] HemeAutoSS Insurance Correspondence Off iceon 12-18-2022 Insurance Correspondence Office [id number]#1 .00CD:127 Normal [facility] Interdisciplinary Note - Santosh e Manageron 12-18-2022 Interdisciplinary Note - Elevator Examiner And Adjuster [facility] Comment on above: Result Comment: Elec tronically Signed By: Lucero Watson\.br\Date and Time Signed: 12/18/22 14:57 EDT Interdisciplinary Note - Dejuan singon 12-18-2022 Interdisciplinary Note - Nursing Patient he is confused and he does not able to answer my questions. informed staff in [facility] to send current medication list in fax.3N Normal [facility] Interdisciplinary Note - PTo n 12-18-2022 Interdisciplinary Note - PT Normal [facility] Laboratory - Microbiology an d Antimicrobial susceptibilityOrdered By: Karen Vergara on 12-18-2022 Bacteria identified Cx Nom (U) 10,000 cfu/ml Staphylococcus species Continuing incubation [facility] Monitor Recordon 12-18-2022 Monitor Record [id number]# 1.00CD:127 Normal [facility] No Panel InformationOrdered By: Karen Vergara on 12-18-2022 Blood Culture Charcoal Streptococcus spe cies Staphylococcus species coagulase negative In 1 of 2 blood culture bottles drawn. Isolated from aerobic bottle Preliminary gram stain results of gram positive cocci in clusters Result called to Dr. Mckinney by and results read back for confirmation on 12/19/2022 09:39:39 [facility] No Panel InformationOrdered By: ANGPROCESSSERVER MICROBIOLOGY on 12-18-2022 Blood Culture Charcoal No growth at 2 da ys. Final to follow at 7 days. [facility] PT & PTTon 12-18-2022 aPTT Coag (PPP) [Time] 30.6 second(s) Normal 25.1-36.5 [facility] Comment on above: Result Comment: Para [...] the same coagulation reagent and instrumentation as [facility]. Currently there are no coagulation studies available worldwide for children to 14 days, and no normal ranges. Heparin therapeutic range (represented by Anti-Factor Xa activity of 0.2 - 0.4 U/mL) corresponds to PTT of 56.6 - 109.0 sec. Performed By: #### 1 5345370, 9222351, 70864191, 3615713, 51589948, 66405801, 7938423 ####[facility] [address] [place] [address] INR Coag (PPP) [Relative time] 1.1 {INR} Invalid Interpretation Code [facility] Comment on above: Result Comment: INR results are specifically intended to assess patients stabilized on long-term Anticoagulation therapy suggested INR?s ?Less Intensive Anticoagulation? 2.0 ? 3.0Conventional Range 3.0 ? 4.5 Performed By: #### 1 3096733, 1979391, 20699215, 3472983, 22392930, 78274387, 4713412 ####[facility] [address] [place] [address] PT Coag (PPP) [Time] 12.5 second(s) Normal 9.4-12.5 [facility] Comment on above: Result Comment: 15 [...] the same coagulation reagent and instrumentation as [facility]. Currently there are no coagulation studies available worldwide for children to 14 days, and no normal ranges. Performed By: #### 1 7026631, 7615473, 08474101, 9216810, 95025501, 82945326, 2059447 ####[facility] [address] [place] [address] Procalcitoninon 12-18-2022 Procalcitonin .09 ng/mL Normal .00-.50 [facility] Comment on above: Result Comment: <0.5 [...] to 24 hours. Performed By: #### 2 693958, 5626972, 9384766566, 19970180, 45823133 ####[facility] [address] [place] [address] RAD - Preliminary Cat Scan R eporton 12-18-2022 RAD - Preliminary Cat Scan Report [id number]# 1.00CD:127 Normal [facility] Troponin 0 Hr.on 12-18-2022 Troponin I.cardiac [Mass/Vol] 23.50 pg/mL Normal 15.90-38.40 [facility] Comment on above: Result Comment: The 95% CI (Confidence Interval) PPV (Positive Predictive Value) for myocardial infarction in females is 38 pg/mL, in males 51 pg/mL. The results should be used in conjunction with clinical conditions of myocardial infarction.([employer] High Sensitivity Troponin I Instructions For Use, [employer], December 2017) Performed By: #### 1 3306585, 3598504, 53121906, 3406121, 19471796, 20111712, 6783942 ####[facility] [address] [place] [address] Troponin 3 Hr.on 12-18-2022 Troponin I.cardiac [Mass/Vol] 18.80 pg/mL Normal 15.90-38.40 [facility] Comment on above: Result Comment: The 95% CI (Confidence Interval) PPV (Positive Predictive Value) for myocardial infarction in females is 38 pg/mL, in males 51 pg/mL. The results should be used in conjunction with clinical conditions of myocardial infarction.([employer] High Sensitivity Troponin I Instructions For Use, [employer], December 2017) Performed By: #### 1 0159635 ####[address] [place] [address] Troponin 6 Hr.on 12-18-2022 Troponin I.cardiac [Mass/Vol] 22.50 pg/mL Normal 15.90-38.40 [facility] Comment on above: Result Comment: The 95% CI (Confidence Interval) PPV (Positive Predictive Value) for myocardial infarction in females is 38 pg/mL, in males 51 pg/mL. The results should be used in conjunction with clinical conditions of myocardial infarction.([employer] High Sensitivity Troponin I Instructions For Use, [employer], December 2017) Performed By: #### 2 793418, 9712820, 9449833841, 40792806, 71898812 ####[facility] [address] [place] [address] Troponin 9 Hr.on 12-18-2022 Troponin I.cardiac [Mass/Vol] 18.90 pg/mL Normal 15.90-38.40 [facility] Comment on above: Result Comment: The 95% CI (Confidence Interval) PPV (Positive Predictive Value) for myocardial infarction in females is 38 pg/mL, in males 51 pg/mL. The results should be used in conjunction with clinical conditions of myocardial infarction.(Access High Sensitivity Troponin I Instructions For Use, [employer], December 2017) Performed By: #### 1 3627147 ####[address] UA With Cult Reflexon 2022 Bacteria LM Ql (Urine sed) TRACE Normal Trace [facility] Comment on above: Performed By: #### 1 8892228, 0288611 ####[address] [address] Bilirubin Ql (U) Negative Normal Negative [facility] Comment on above: Performed By: #### 1 7915467, 0817917 ####[address] [address] Clarity (U) CLEAR Normal Clear [facility] Comment on above: Performed By: #### 1 9933410, 7408092 ####[address] [address] Color (U) YELLOW Normal Yellow [facility] Comment on above: Performed By: #### 1 2017811, 0540535 ####[address] [address] Epithelial cells.squamous LM.HPF (Urine sed) [#/Area] 0-2 Normal 0-2 [facility] Comment on above: Performed By: #### 1 9214907, 0021551 ####[address] [address] Glucose Test strip (U) [Mass/Vol] Negative Normal Negative [facility] Comment on above: Performed By: #### 1 9750566, 7968902 ####[address] [address] Hemoglobin Ql (U) TRACE Abnormal Negative [facility] Comment on above: Performed By: #### 1 9795943, 1089061 ####[address] [address] Ketones (U) [Mass/Vol] Negative Normal Negative [facility] Comment on above: Performed By: #### 1 2887152, 9013653 ####[address] [address] Oaks.plasma/Oaks.R BC (Bld) [Mass ratio] 0-3 Normal 0-3 [facility] Comment on above: Performed By: #### 1 4918150, 9884846 ####[address] [address] Nitrite Ql (U) Negative Normal Negative [facility] Comment on above: Performed By: #### 1 4638147, 2727210 ####[address] [address] pH (U) 6.5 [pH] Invalid Interpretation Code 5.0-9.0 [facility] Comment on above: Performed By: #### 1 8413703, 0629869 ####[address] [address] Protein (U) [Mass/Vol] Negative Normal Negative [facility] Comment on above: Performed By: #### 1 8081888, 1099234 ####[address] [address] Specific gravity (U) [Rel density] 1.020 Invalid Interpretation Code 1.005-1.030 [facility] Comment on above: Performed By: #### 1 1468436, 0794841 ####[address] [address] Type of Urine collection method Clean Catch Normal [facility] Comment on above: Performed By: #### 1 5361761, 1573566 ####[facility] [address] [place] [address] Urobilinogen Qn (U) 0.2 {Lei'U}/dL Normal 0.0-1.0 [facility] Comment on above: Performed By: #### 1 5508337, 8103860 ####[facility] [address] [place] [address] WBC Auto Ql (U) 3+ Abnormal Negative [facility] Comment on above: Performed By: #### 1 2534757, 2306966 ####[facility] [address] [place] [address] WBC LM.HPF (Urine sed) [#/Area] /[HPF] Abnormal 0-5 [facility] Comment on above: Performed By: #### 1 5184877, 6446523 ####[facility] [address] [place], [place] [address] URINALYSISOrdered By: Houston Castillo on 12-18-2022 Bacteria [...] PM) Normal Negative FT UA Auto SS Oaks.plasma/Oaks.R BC (Bld) [Mass ratio] 0-3 /HPF Normal [...] FT UA Auto SS Urobilinogen Qn (U) 0.7355477 {Lei'U}/dL Normal 0.0 - 1.0 EU/dL FT UA Auto SS WBC Auto Ql (U) 3+ *ABN* (12/18/22 4:45 PM) Invalid Interpretation Code Negative [facility] UA Auto SS WBC LM.HPF (Urine sed) [#/Area] /[HPF] Invalid Interpretation Code 0-5/HPF [facility] UA Auto SS XR Chest Single Viewon 12-18 XR Chest Single View Normal Fish er [facility] XR Pelvis 1 or 2 Viewson XR Pelvis 1 or 2 Views Normal Fi [facility] eGFRon 12-18-2022 GFR/1.73 sq M.predicted among non-blacks MDRD (S/P/Bld) [Vol rate/Area] 44 mL/min/1.73 m2 Low >=59 [facility] Comment on above: Order Comment: Order added by Discern Expert. Result Comment: Machinist earnest kidney disease could be indicated at eGFR's of less than 60 mL/min/1.73m2. Kidney failure is indicated at less than 15 mL/min/1.73m2. Performed By: #### 2 257288, 5019460, 8037027839, 24148771, 32608336 ####[facility] [address] [place] [address] GFR/1.73 sq M.predicted among non-blacks MDRD (S/P/Bld) [Vol rate/Area] 38 mL/min/1.73 m2 Low >=59 [facility] Comment on above: Order Comment: Order added by Discern Expert. Result Comment: Machinist earnest kidney disease could be indicated at eGFR's of less than 60 mL/min/1.73m2. Kidney failure is indicated at less than 15 mL/min/1.73m2. Performed By: #### 1 2137993, 1768206, 08745613, 6044615, 39817616, 77159820, 3669260 ####[facility] [address] [place] [address] Capillary Glucose POCon 11-22 Glucose [Mass/Vol] 165 mg/dL High [address] [place] [address] Comment on above: Result Comment: Yazmin bri Meter Performed By: #### 2 88873800 ####[facility] [address] [place] [address] Glucose [Mass/Vol] 184 mg/dL [address] Comment on above: Performed By: #### 2 60474237 ####[facility] [address] [place] [address] Capillary Glucose POCon 11-22 Glucose [Mass/Vol] 184 mg/dL [address] Comment on above: Result Comment: Yazmin bri Meter Performed By: #### 2 50150921 ####[facility] [address] [place] [address] Glucose [Mass/Vol] 141 mg/dL High [address] [place] [address] Comment on above: Result Comment: Yazmin bri Meter Performed By: #### 2 31499506 ####[facility] [address] [place] [address] Capillary Glucose POCon 11-22 Glucose [Mass/Vol] 183 mg/dL [address] Comment on above: Result Comment: Yazmin bri Meter Performed By: #### 2 41271046 ####[facility] [address] [place] [address] Glucose [Mass/Vol] 147 mg/dL High 55-99 [facility] Comment on above: Result Comment: Yazmin bri Meter Performed By: #### 2 07030285 ####[facility] [address] [place] [address] Capillary Glucose POCon 07- Glucose [Mass/Vol] 188 mg/dL High 55-99 [facility] Comment on above: Result Comment: Yazmin bri Meter Performed By: #### 2 39952069 ####[facility] [address] [place] [address] Glucose [Mass/Vol] 162 mg/dL High 55- [facility] Comment on above: Result Comment: Yazmin bri Meter Performed By: #### 2 69157998 ####[facility] [address] [place] [address] Auto Diffon 12-13-2022 Basophils/100 WBC (Bld) 0.0 % Normal 0.0-2.0 [facility] Comment on above: Order Comment: Order Added by Discern Expert. Performed By: #### 1 0969942, 6240745, 122137046, 0141088, 1952103 ####[address] [address] Basophils/Leukocytes Auto (Bld) [Pure # fraction] 0.0 E9/L Normal 0.0-0.2 [facility] Comment on above: Order Comment: Order Added by Discern Expert. Performed By: #### 1 8154857, 6847524, 076500290, 9447566, 2145536 ####[facility] [address] [place] [address] Eosinophils/100 WBC (Bld) 7.6 % Normal 0.0-8.0 [facility] Comment on above: Order Comment: Order Added by Discern Expert. Performed By: #### 1 8526274, 9837760, 357007322, 4664333, 1528652 ####[address] [address] Eosinophils/Leukocytes Auto (Bld) [Pure # fraction] 1.0 E9/L High 0.0-0.5 [facility] Comment on above: Order Comment: Order Added by Discern Expert. Performed By: #### 1 3923669, 6144475, 133993944, 5474955, 0870608 ####[address] [place] [address] Lymphocytes/100 WBC (Bld) 10.3 % Low 14.0-50.0 [facility] Comment on above: Order Comment: Order Added by Discern Expert. Performed By: #### 1 8520033, 9380316, 924296610, 7153677, 8255182 ####[address] [place] [address] Lymphocytes/Leukocytes Auto (Bld) [Pure # fraction] 1.3 E9/L Normal 1.0-4.0 [facility] Comment on above: Order Comment: Order Added by Discern Expert. Performed By: #### 1 6665051, 0846435, 038136043, 3142797, 9661150 ####[address] [address] Monocytes/100 WBC (Bld) 9.6 % Normal 4.0-14.0 [facility] Comment on above: Order Comment: Order Added by Discern Expert. Performed By: #### 1 9586405, 1980863, 902901578, 6018401, 4693458 ####[address] [address] Monocytes/Leukocytes Auto (Bld) [Pure # fraction] 1.2 E9/L High 0.2-1.0 [facility] Comment on above: Order Comment: Order Added by Discern Expert. Performed By: #### 1 4481553, 9954262, 334001331, 8065747, 1915056 ####[address] [place] [address] Neutrophils/100 WBC (Bld) 72.5 % Normal 36.0-75.0 [facility] Comment on above: Order Comment: Order Added by Discern Expert. Performed By: #### 1 2035671, 5290479, 601015212, 8379255, 4188225 ####[address] [place] [address] Neutrophils/Leukocytes Auto (Bld) [Pure # fraction] 9.0 E9/L High 2.0-7.5 [facility] Comment on above: Order Comment: Order Added by Discern Expert. Performed By: #### 1 7196128, 1509830, 104891149, 1922045, 1773808 ####[address] [place] [address] CBC w/ Auto Diffon 3 Erythrocyte distribution width (RBC) [Ratio] 15.0 % High 10.9-14.2 [facility] Comment on above: Performed By: #### 1 6852630, 1732409, 212622541, 3182447, 2963456 ####[address] [place] [address] Hematocrit (Bld) [Volume fraction] 45.2 % Normal 37.7-49.0 [facility] Comment on above: Performed By: #### 1 8632223, 7260203, 002610033, 6255184, 8103173 ####[address] [place] [address] Hemoglobin (Bld) [Mass/Vol] 14.8 g/dL Normal 13.5-17.5 [facility] Comment on above: Performed By: #### 1 8150911, 8973154, 997765881, 0727098, 0722819 ####[address] [place] [address] MCH (RBC) [Entitic mass] 27.8 pg Normal 27.0-34.0 [facility] Comment on above: Performed By: #### 1 8638932, 4183856, 746004225, 7583643, 2623772 ####[address] [place] [address] MCHC (RBC) [Mass/Vol] 32.7 g/dL Normal 31.4-36.0 [facility] Comment on above: Performed By: #### 1 7716798, 5420519, 069713105, 3038398, 7137801 ####[facility] [address] [place] [address] MCV (RBC) [Entitic vol] 85.0 fL Normal 80.0-100.0 [facility] Comment on above: Performed By: #### 1 8297492, 0671757, 784524408, 5140978, 8422221 ####[facility] [address] [place] [address] Platelet mean volume (Bld) [Entitic vol] 9.4 fL Normal 6.4-10.8 [facility] Comment on above: Performed By: #### 1 4265766, 7624310, [id number], 2340525, 3907504 ####[address] [address] Platelets (Bld) [#/Vol] 193.0 E9/L Normal 150.0-500.0 [facility] Comment on above: Performed By: #### 1 4023398, 5447206, 525396589, 7919939, 5160680 ####[address] [address] RBC (Bld) [#/Vol] 5.3 E12/L Normal 4.3-5.9 [facility] Comment on above: Performed By: #### 1 7035178, 9951493, 865850626, 6840197, 0048762 ####[facility] [address] [place] [address] WBC corrected for nucl RBC Auto (Bld) [#/Vol] 12.5 E9/L High 4.0-11.0 [facility] Comment on above: Performed By: #### 1 8963635, 8485683, 632842562, 8449244, 6210713 ####[address] [place] [address] CMPon 12-13-2022 Albumin [Mass/Vol] 3.6 g/dL Normal 3.3-5.0 [facility] Comment on above: Performed By: #### 1 3236141, 5309901, 298286033, 9056252, 8144512 ####[facility] [address] [place] [address] Albumin/Globulin (S) [Mass conc ratio] 1.0 Low 1.1-2.2 [facility] Comment on above: Performed By: #### 1 8581864, 6415099, 312217766, 9624823, 2999819 ####[facility] [address] [place] [address] ALP [Catalytic activity/Vol] 49 Int._Unit/L Normal 21-98 [facility] Comment on above: Performed By: #### 1 8407493, 1651658, 541787150, 2182423, 5991049 ####[facility] [address] [place] [address] ALT No additional P-5'-P [Catalytic activity/Vol] 21 Int._Unit/L Normal 6-46 [facility] Comment on above: Performed By: #### 1 5387889, 1994933, 997896243, 4670318, 4080985 ####[facility] [address] [place] [address] Anion gap [Moles/Vol] 16 mmol/L Normal 6-16 [facility] Comment on above: Performed By: #### 1 1132017, 0516591, 302396242, 2594881, 9317457 ####[facility] [address] [place] [address] AST [Catalytic activity/Vol] 21 Int._Unit/L Normal 5-43 [facility] Comment on above: Performed By: #### 1 7538962, 2722866, 557419382, 8017423, 4555418 ####[facility] [address] [place] [address] Bilirubin [Mass/Vol] 0.6 mg/dL Normal 0.0-1.1 [facility] Comment on above: Performed By: #### 1 8656073, 1745536, 214758793, 9353926, 0040382 ####[facility] [address] [place] [address] Calcium [Mass/Vol] 9.4 mg/dL Normal 8.9-11.1 [facility] Comment on above: Performed By: #### 1 7337172, 2374623, 396167416, 1961775, 5471801 ####[facility] [address] [place] [address] Chloride [Moles/Vol] 99 mmol/L Low 101-111 [facility] Comment on above: Performed By: #### 1 8905792, 1279709, 039422020, 2244776, 6909965 ####[facility] [address] [place] [address] CO2 [Moles/Vol] 31 mmol/L Normal 21-31 [facility] Comment on above: Performed By: #### 1 0873211, 4212367, 881175348, 1750288, 4340163 ####[facility] [address] [place] [address] Creatinine [Mass/Vol] 1.5 mg/dL High 0.5-1.3 [facility] Comment on above: Performed By: #### 1 3897998, 6977436, 141610217, 5409400, 9322279 ####[facility] [address] [place] [address] Globulin (S) [Mass/Vol] 3.7 g/dL Normal 1.4-4.0 [facility] Comment on above: Performed By: #### 1 6786479, 6135813, 966171868, 1940041, 7574052 ####[facility] [address] [place] [address] Glucose [Mass/Vol] 128 mg/dL Normal 55-199 [facility] Comment on above: Result Comment: If t his glucose result represents a fasting glucose, interpretation should refer to the following reference range: 55-99 mg/dL Performed By: #### 1 1091655, 8634567, 462122523, 6409497, 8399700 ####[facility] [address] [place] [address] Potassium [Moles/Vol] 4.1 mmol/L Normal 3.5-5.3 [facility] Comment on above: Performed By: #### 1 9533282, 7504384, 836300295, 6339451, 1846440 ####[facility] [address] [place] [address] Protein [Mass/Vol] 7.3 g/dL Normal 6.0-7.8 [facility] Comment on above: Performed By: #### 1 7227891, 7527280, 410496562, 2053395, 5814568 ####[facility] [address] [place] [address] Sodium [Moles/Vol] 142 mmol/L Normal 135-145 [facility] Comment on above: Performed By: #### 1 5582999, 8760171, 085261679, 8146681, 1803765 ####[facility] [address] [place] [address] Urea nitrogen [Mass/Vol] 57 mg/dL High 5-21 [facility] Comment on above: Performed By: #### 1 4000608, 0474772, 689525330, 7213223, 6786849 ####[facility] [address] [place] [address] Urea nitrogen/Creatinine [Mass ratio] 38 No Units High 10-20 [facility] Comment on above: Performed By: #### 1 0119385, 1282426, 097461448, 5751900, 4533711 ####[facility] [address] [place] [address] Capillary Glucose POCon 07-2 Glucose [Mass/Vol] 256 mg/dL High 55-99 [facility] Comment on above: Result Comment: Yazmin bri Meter Performed By: #### 2 77975667 ####[facility] [address]isc[address] [place] [address] Glucose [Mass/Vol] 152 mg/dL High [facility] Comment on above: Result Comment: Yazmin bri Meter Performed By: #### 2 83521159 ####[facility] [address] [place] [address] CukK1ybk 12-13-2022 HbA1c (Bld) [Mass fraction] 6.5 % High <=5.9 [facility] Comment on above: Performed By: #### 1 1967411, 1592772, 206954530, 5252366, 3836120 ####[facility] [address] [place] [address] eGFRon 12-13-2022 GFR/1.73 sq M.predicted among non-blacks MDRD (S/P/Bld) [Vol rate/Area] 47 mL/min/1.73 m2 Low >=59 [facility] Comment on above: Order Comment: Order added by Discern Expert. Result Comment: Machinist earnest kidney disease could be indicated at eGFR's of less than 60 mL/min/1.73m2. Kidney failure is indicated at less than 15 mL/min/1.73m2. Performed By: #### 1 5551744, 0531015, 974645245, 3767681, 7872908 ####[facility] [address] [place] [address] Capillary Glucose POCon 11-22 Glucose [Mass/Vol] 212 mg/dL High - [facility] Comment on above: Result Comment: Yazmin bri Meter Performed By: #### 2 99218891 ####[facility] [address] [place] [address] Glucose [Mass/Vol] 161 mg/dL High [facility] Comment on above: Result Comment: Yazmin bri Meter Performed By: #### 2 08540856 ####[facility] [address] [place] [address] Capillary Glucose POCon 11-22 Glucose [Mass/Vol] 206 mg/dL [address] Comment on above: Result Comment: Yazmin bri Meter Performed By: #### 2 38080669 ####[facility] [address] [place] [address] Glucose [Mass/Vol] 152 mg/dL [address] Comment on above: Result Comment: Yazmin bri Meter Performed By: #### 2 55961553 ####[facility] [address]qs[address] [place] [address] Capillary Glucose POCon 11-22 Glucose [Mass/Vol] 140 mg/dL [address] Comment on above: Result Comment: Yazmin bri Meter Performed By: #### 2 46253094 ####[facility] [address] [place] [address] Capillary Glucose POCon 11-21 Glucose [Mass/Vol] 243 mg/dL [address] Comment on above: Result Comment: Yazmin bri Meter Performed By: #### 2 84091946 ####[facility] [address] [place] [address] Glucose [Mass/Vol] 157 mg/dL [address] Comment on above: Result Comment: Yazmin bri Meter Performed By: #### 2 04223686 ####[facility] [address] [place] [address] Capillary Glucose POCon 11-21 Glucose [Mass/Vol] 181 mg/dL [address] Comment on above: Result Comment: Yazmin bri Meter Performed By: #### 2 90980459 ####[facility] [address] [place] [address] Capillary Glucose POCon 11-21 Glucose [Mass/Vol] 149 mg/dL [address] Comment on above: Result Comment: Yazmin bri Meter Performed By: #### 2 36838884 ####[facility] [address] [place] [address] Glucose [Mass/Vol] 164 mg/dL High 55-99 [facility] Comment on above: Result Comment: Yazmin bri Meter Performed By: #### 2 08719606 ####[facility] [address] [place] [address] Capillary Glucose POCon 11-21 Glucose [Mass/Vol] 265 mg/dL High 55-99 [facility] Comment on above: Result Comment: Yazmin bri Meter Performed By: #### 2 33430881 ####[facility] [address] [place] [address] Glucose [Mass/Vol] 129 mg/dL High 55-99 [facility] Comment on above: Result Comment: Yazmin bri Meter Performed By: #### 2 05986297 ####[facility] [address] [place] [address] Family Medicine Office/Clini c Noteon 12-06-2022 Family Medicine Office/Clinic Note Normal [facility] Comment on above: Result Comment: Elec tronically Signed By: SHAISTA POTTS, Donta\.br\Date and Time Signed: 12/06/22 21:11 EDT Capillary Glucose POCon 11-21 Glucose [Mass/Vol] 196 mg/dL High 55-99 [facility] Comment on above: Result Comment: Yazmin bri Meter Performed By: #### 2 58836686 ####[facility] [address] [place] [address] Glucose [Mass/Vol] 159 mg/dL High 55-99 [facility] Comment on above: Result Comment: Yazmin bri Meter Performed By: #### 2 58281334 ####[facility] [address] [place] [address] Capillary Glucose POCon 11-21 Glucose [Mass/Vol] 195 mg/dL High 55-99 [facility] Comment on above: Result Comment: Gareth guerrero RN/ Performed By: #### 2 38379727 ####[facility] [address] [place] [address] Insurance Correspondence Off ice12-04-2022 Insurance Correspondence Office [id number]# 1.00CD:127 Normal [facility] Physician Orderon 12-03-2022 Physician Order [id number]# 1.00CD:127 Normal [facility] CHEMISTRYOrdered By: Lab ROP User on 12-02-2022 Glucose [Mass/Vol] 227 mg/dL High 55 - 99 mg/dL [facility] POC Subsection Comment on above: Result Comment: Gareth GARDINER POC Device SN [id number] Invalid Interpretation Code FT POC Subsection POC User ID [id number] Invalid Interpretation Code [facility] POC Subsection POC Username KINGSTON JAMISON Invalid Interpretation Code [facility] POC Subsection Glucose [Mass/Vol] 127 mg/dL High 55 - 99 mg/dL [facility] POC Subsection Comment on above: Result Comment: Gareth GARDINER POC Device SN [id number] Invalid Interpretation Code FT POC Subsection POC User ID [id number] Invalid Interpretation Code FT POC Subsection POC Username TOYIN REYNOLDS Invalid Interpretation Code [facility] POC Subsection Capillary Glucose POCon 11-21 Glucose [Mass/Vol] 227 mg/dL High 55-99 [facility] Comment on above: Result Comment: Gareth GARDINER Performed By: #### 2 [id number] ####[facility] [address] [place] [address] Glucose [Mass/Vol] 127 mg/dL High 55-99 [facility] Comment on above: Result Comment: Gareth GARDINER Performed By: #### 2 [id number] ####[facility] [address] [place] [address] Coding Queryon 12-02-2022 Coding Query Normal [facility] Discharge Note-Nursingon Discharge Note-Nursing Normal [facility] Inpatient Clinical Summaryon 12-02-2022 Inpatient Clinical Summary Normal [facility] Inpatient Patient Summaryon 12-02-2022 Inpatient Patient Summary Normal [facility] Insurance Correspondence Off ice12-02-2022 Insurance Correspondence Office [id number]#1. 00CD:127 Normal [facility] Interdisciplinary Note - Santosh e Manageron 12-02-2022 Interdisciplinary Note - Elevator Examiner And Adjuster [facility] Comment on above: Result Comment: Elec tronically Signed By: Dank HAYDEN, Lisa\.br\Date and Time Signed: 12/02/22 09:31 EDT Monitor Recordon 12-02-2022 Monitor Record [id number]# 1.00CD:127 Normal [facility] Physician Orderon 12-02-2022 Physician Order [id number]# 1.00CD:127 Normal [facility] Progress Note-Physicianon Progress Note-Physician [facility] Comment on above: Result Comment: Elec tronically Signed By: Adeline COLEMAN\.br\Date and Time Signed: 12/01/22 18:43 EDT\.br\Electronically Co-Signed By: Juan Hdz DO\.br\Date and Time Co-Signed: 12/02/22 07:20 EDT Transfer Documentson 023 Transfer Documents [id number]# 1.00CD:127 Normal [facility] BMPon 12-01-2022 Anion gap [Moles/Vol] 13 mmol/L Normal 6-16 [facility] Comment on above: Performed By: #### 1 7059465, 3393111, 4681924, 3251710 ####[facility] [address] [place] [address] Calcium [Mass/Vol] 9.1 mg/dL Normal 8.9-11.1 [facility] Comment on above: Performed By: #### 1 9579518, 4508120, 2034852, 8423566 ####[facility] [address] [place] [address] Chloride [Moles/Vol] 102 mmol/L Normal 101-111 [facility] Comment on above: Performed By: #### 1 1586882, 3366390, 2513372, 1612850 ####[facility] [address] [place] [address] CO2 [Moles/Vol] 28 mmol/L Normal 21-31 [facility] Comment on above: Performed By: #### 1 8687419, 6034784, 2218415, 3632396 ####[facility] [address] [place] [address] Creatinine [Mass/Vol] 1.3 mg/dL Normal 0.5-1.3 [facility] Comment on above: Performed By: #### 1 3226834, 9464095, 5227610, 1526896 ####[facility] [address] [place] [address] Glucose [Mass/Vol] 97 mg/dL Normal 55-199 [facility] Comment on above: Result Comment: If t his glucose result represents a fasting glucose, interpretation should refer to the following reference range: 55-99 mg/dL Performed By: #### 1 8010672, 4227924, 7617502, 8190090 ####[facility] [address] [place] [address] Potassium [Moles/Vol] 4.6 mmol/L Normal 3.5-5.3 [facility] Comment on above: Performed By: #### 1 0833293, 3244777, 1428472, 4032231 ####[facility] [address] [place] [address] Sodium [Moles/Vol] 138 mmol/L Normal 135-145 [facility] Comment on above: Performed By: #### 1 9904335, 1619951, 5022236, 1972085 ####[facility] [address] [place] [address] Urea nitrogen [Mass/Vol] 24 mg/dL High 5-21 [facility] Comment on above: Performed By: #### 1 7212181, 3799369, 5725008, 5870471 ####[facility] [address] [place] [address] Urea nitrogen/Creatinine [Mass ratio] 18 No Units Normal 10-20 [facility] Comment on above: Performed By: #### 1 1266663, 5313918, 2002065, 4843122 ####[facility] [address] [place] [address] CHEMISTRYOrdered By: Lab ROP User on 12-01-2022 Glucose [Mass/Vol] 114 mg/dL High 55 - 99 mg/dL [facility] POC Subsection Comment on above: Result Comment: Gareth guerrero RN/ POC Device SN [id number] Invalid Interpretation Code [facility] POC Subsection POC User ID [id number] Invalid Interpretation Code [facility] POC Subsection POC Username MORGANCarolNETO Invalid Interpretation Code [facility] POC Subsection CHEMISTRYOrdered By: SYSTEM SYSTEM on 12-01-2022 Anion gap [Moles/Vol] 13 mmol/L Normal 6 - 16 mEq/L [facility] Remisol Calcium [Mass/Vol] 9.1 mg/dL Normal 8.9 - 11. 1 mg/dL FT Remisol Chloride [Moles/Vol] 102 mmol/L Normal 101 - 1 11 mmol/L FT Remisol CK [Catalytic activity/Vol] 211 [iU]/d Normal 14 - 261 Int._Unit/L [facility] Remisol CO2 [Moles/Vol] 28 mmol/L Normal 21 - 31 mmol/L FT Rem[facility] Creatinine [Mass/Vol] 1.3 mg/dL Normal 0.5 - 1.3 mg/dL [facility] Remisol GFR/1.73 sq M.predicted among non-blacks MDRD (S/P/Bld) [Vol rate/Area] 56 mL/min/1.73 m2 Low >=59mL/min/ 1.73 m2 [facility] Chem S Glucose [Mass/Vol] 97 mg/dL Normal 55 - 199 mg/dL [facility] Magnesium [Mass/Vol] 2.1 mg/dL Normal 1.3 - 2 .4 mg/dL [facility] Potassium [Moles/Vol] 4.6 mmol/L Normal 3.5 - 5.3 mmol/L [facility] Sodium [Moles/Vol] 138 mmol/L Normal 135 - 145 mmol/L [facility] Urea nitrogen [Mass/Vol] 24 mg/dL High 5 - 21 mg/dL [facility] Remisol Urea nitrogen/Creatinine [Mass ratio] 18 mg/mg Normal 10 - 20 [facility] Remisol CKon 12-01-2022 CK [Catalytic activity/Vol] 211 Int._Unit/L Normal 14-261 [facility] Comment on above: Performed By: #### 1 1076320, 3455477, 4736074, 4693006 ####[facility] [address] [place] [address] Capillary Glucose POCon 11-21 Glucose [Mass/Vol] 114 mg/dL High 55-99 [facility] Comment on above: Result Comment: Gareth GARDINER Performed By: #### 2 28308596 ####[facility] [address] [place] [address] Glucose [Mass/Vol] 193 mg/dL High 55-99 [facility] Comment on above: Result Comment: Gareth GARDINER Performed By: #### 2 81440689 ####[facility] [address] [place] [address] Glucose [Mass/Vol] 203 mg/dL High 55-99 [facility] Comment on above: Result Comment: Gareth GARDINER Performed By: #### 2 91235920 ####[facility] [address] [place] [address] Glucose [Mass/Vol] 110 mg/dL High 55-99 [facility] Comment on above: Result Comment: Gareth GARDINER Performed By: #### 2 46785333 ####[facility] [address] [place] [address] Interdisciplinary Note - Santosh e Manageron 12-01-2022 Interdisciplinary Note - Elevator Examiner And Adjuster Pt is asleep in bed, no family present. Pt is accepted to [facility] side, pending precert at this time. Contact information provided and white board updated, CRM following Normal [facility] Comment on above: Result Comment: Elec tronically Signed By: Dank HAYDEN, Lisa\.br\Date and Time Signed: 12/01/22 08:20 EDT Ionized Calciumon 12-01-2022 Calcium.ionized ISE [Mass/Vol] 4.8 mg/dL Invalid Interpretation Code 4.5-5.6 [facility] Comment on above: Result Comment: Perf ormed at: [facility] [address] [place], [place] [id number] PhD Michael Cortes Performed By: #### 2 950729, 7541716, 7858387, 40735993, 09335966, 8207910, 35245613, 0001980, 22321794, 076892166, 5954326, 5161672 ####[facility] [address] [place] [address] Magnesiumon 12-01-2022 Magnesium [Mass/Vol] 2.1 mg/dL Normal 1.3-2.4 [facility] Comment on above: Performed By: #### 1 1133386, 8862574, 0731634, 0620726 ####[facility] [address] [place] [address] Progress Note-Physicianon Progress Note-Physician Normal [facility] Comment on above: Result Comment: Elec tronically Signed By: Pao POTTS, Lizeth\.br\Date and Time Signed: 12/01/22 12:41 EDT XR Abdomen 1 Viewon 12-02-19 23 XR Abdomen 1 View Normal [facility] eGFRon 12-01-2022 GFR/1.73 sq M.predicted among non-blacks MDRD (S/P/Bld) [Vol rate/Area] 56 mL/min/1.73 m2 Low >=59 [facility] Comment on above: Order Comment: Order added by Discern Expert. Result Comment: Machinist earnest kidney disease could be indicated at eGFR's of less than 60 mL/min/1.73m2. Kidney failure is indicated at less than 15 mL/min/1.73m2. Performed By: #### 1 9756548, 0345572, 4262870, 9110878 ####[facility] [address] [place] [address] BMPon 11-30-2022 Anion gap [Moles/Vol] 11 mmol/L Normal 6-16 [facility] Comment on above: Performed By: #### 2 030314, 4179546, 94034611 ####[facility] [address] [place] [address] Calcium [Mass/Vol] 9.0 mg/dL Normal 8.9-11.1 [facility] Comment on above: Performed By: #### 2 120820, 7895618, 79914639 ####[facility] [address] [place] [address] Chloride [Moles/Vol] 102 mmol/L Normal 101-111 [facility] Comment on above: Performed By: #### 2 173526, 0006049, 54157591 ####[facility] [address] [address] CO2 [Moles/Vol] 31 mmol/L Normal 21-31 [facility] Comment on above: Performed By: #### 2 427116, 0055050, 59646876 ####[facility] [address] [place] [address] Creatinine [Mass/Vol] 1.1 mg/dL Normal 0.5-1.3 [facility] Comment on above: Performed By: #### 2 398293, 6556256, 30868762 ####[facility] [address] [place] [address] Glucose [Mass/Vol] 114 mg/dL Normal 55-199 [facility] Comment on above: Result Comment: If t his glucose result represents a fasting glucose, interpretation should refer to the following reference range: 55-99 mg/dL Performed By: #### 2 094855, 5247870, 46779943 ####[facility] [address] [place] [address] Potassium [Moles/Vol] 3.4 mmol/L Low 3.5-5.3 [facility] Comment on above: Performed By: #### 2 946156, 0988228, 29253333 ####[facility] [address] [place] [address] Sodium [Moles/Vol] 141 mmol/L Normal 135-145 [facility] Comment on above: Performed By: #### 2 567948, 1431453, 92013337 ####[facility] [address] [place] [address] Urea nitrogen [Mass/Vol] 23 mg/dL High 5-21 [facility] Comment on above: Performed By: #### 2 932116, 3577510, 62534187 ####[facility] [address] [place] [address] Urea nitrogen/Creatinine [Mass ratio] 21 No Units High 10-20 [facility] Comment on above: Performed By: #### 2 589457, 4560185, 13336400 ####[facility] [address] [place] [address] CHEMISTRYOrdered By: SYSTEM SYSTEM on 11-30-2022 Anion gap [Moles/Vol] 11 mmol/L Normal 6 - 16 mEq/L [facility] Remisol Calcium [Mass/Vol] 9.0 mg/dL Normal 8.9 - 11. 1 mg/dL FT Remisol Chloride [Moles/Vol] 102 mmol/L Normal 101 - 1 11 mmol/L [facility] Remisol CO2 [Moles/Vol] 31 mmol/L Normal 21 - 31 mmol/L [facility] Remisol Creatinine [Mass/Vol] 1.1 mg/dL Normal 0.5 - 1.3 mg/dL [facility] Remisol GFR/1.73 sq M.predicted among non-blacks MDRD (S/P/Bld) [Vol rate/Area] 69 mL/min/1.73 m2 Normal >=59mL/min/ 1.73 m2 [facility] Chem S Glucose [Mass/Vol] 114 mg/dL Normal 55 - 199 mg/dL FT Remisol Magnesium [Mass/Vol] 1.8 mg/dL Normal 1.3 - 2 .4 mg/dL FT Remisol Potassium [Moles/Vol] 3.4 mmol/L Low 3.5 - 5.3 mmol/L [facility] Remisol Sodium [Moles/Vol] 141 mmol/L Normal 135 - 145 mmol/L [facility] Remisol Urea nitrogen [Mass/Vol] 23 mg/dL High 5 - 21 mg/dL [facility] Remisol Urea nitrogen/Creatinine [Mass ratio] 21 mg/mg High 10 - 20 [facility] Remisol Capillary Glucose POCon 11-21 Glucose [Mass/Vol] 194 mg/dL High 55-99 [facility] Comment on above: Result Comment: Gareth GARDINER Performed By: #### 2 [id number] ####[facility] [address] [place] [address] Glucose [Mass/Vol] 96 mg/dL Normal 55-99 [facility] Comment on above: Performed By: #### 2 19057664 ####[facility] [address] [place] [address] Glucose [Mass/Vol] 130 mg/dL High 55-99 [facility] Comment on above: Result Comment: Gareth GARDINER Performed By: #### 2 [id number] ####[facility] [address] [place] [address] Glucose [Mass/Vol] 113 mg/dL High 55-99 [facility] Comment on above: Result Comment: Gareth GARDINER Performed By: #### 2 [id number] ####[facility] [address] [place] [address] Echo Transthoracic Completeo n 11-30-2022 Echo Transthoracic Complete Normal [facility] Insurance Correspondence Off iceon 11-30-2022 Insurance Correspondence Office [phone] [id number]:127 Normal [facility] Interdisciplinary Note - Santosh e Manageron 11-30-2022 Interdisciplinary Note - Elevator Examiner And Adjuster Normal [facility] Comment on above: Result Comment: Elec tronically Signed By: Dank HAYDEN, Lisa\.candice\Date and Time Signed: 11/30/22 10:48 EDT Magnesiumon 11-30-2022 Magnesium [Mass/Vol] 1.8 mg/dL Normal 1.3-2.4 [facility] Comment on above: Performed By: #### 2 814403, 9406550, [id number] ####[facility] [address] [place] [address] Message from Medicareon 11-21 Message from Medicare [id number] .[id number]:127 Normal [facility] Progress Note-Physicianon Progress Note-Physician Normal [facility] Comment on above: Result Comment: Elec tronically Signed By: Tino POTTS, Joanie\.br\Date and Time Signed: 11/30/22 15:13 EDT Progress Note-Physician Normal [facility] Comment on above: Result Comment: Elec tronically Signed By: Pao POTTS, Lizeth\.br\Date and Time Signed: 11/30/22 14:52 EDT UA With Cult Reflexon 2022 Bacteria LM Ql (Urine sed) TRACE Normal Trace [facility] Comment on above: Order Comment: Urina ry Catheter Insertion triggered Urinalysis With Culture Reflex order by discern. Performed By: #### 1 [id number] ####[facility] [address] [place] [address] Bilirubin Ql (U) Negative Normal Negative [facility] Comment on above: Order Comment: Urina ry Catheter Insertion triggered Urinalysis With Culture Reflex order by discern. Performed By: #### 1 [id number] ####[facility] [address] [place] [address] Clarity (U) CLEAR Normal Clear [facility] Comment on above: Order Comment: Urina ry Catheter Insertion triggered Urinalysis With Culture Reflex order by discern. Performed By: #### 1 7007079 ####[facility] [address] [place] [address] Color (U) YELLOW Normal Yellow [facility] Comment on above: Order Comment: Urina ry Catheter Insertion triggered Urinalysis With Culture Reflex order by discern. Performed By: #### 1 5902375 ####[facility] [address] [place] [address] Epithelial cells.squamous LM.HPF (Urine sed) [#/Area] 0-2 Normal 0-2 [facility] Comment on above: Order Comment: Urina ry Catheter Insertion triggered Urinalysis With Culture Reflex order by discern. Performed By: #### 1 [id number] ####[address] [address] Glucose Test strip (U) [Mass/Vol] Negative Normal Negative [facility] Comment on above: Order Comment: Urina ry Catheter Insertion triggered Urinalysis With Culture Reflex order by discern. Performed By: #### 1 4581347 ####[address] [address] Hemoglobin Ql (U) Negative Normal Negative [facility] Comment on above: Order Comment: Urina ry Catheter Insertion triggered Urinalysis With Culture Reflex order by discern. Performed By: #### 1 [id number] ####[address] [address] Ketones (U) [Mass/Vol] Negative Normal Negative [facility] Comment on above: Order Comment: Urina ry Catheter Insertion triggered Urinalysis With Culture Reflex order by discern. Performed By: #### 1 0909201 ####[address] [address] Oaks.plasma/Oaks.R BC (Bld) [Mass ratio] 0-3 Normal 0-3 [facility] Comment on above: Order Comment: Urina ry Catheter Insertion triggered Urinalysis With Culture Reflex order by discern. Performed By: #### 1 2002064 ####[facility] [address] [place] [address] Nitrite Ql (U) Negative Normal Negative [facility] Comment on above: Order Comment: Urina ry Catheter Insertion triggered Urinalysis With Culture Reflex order by discern. Performed By: #### 1 9300164 ####[address] [address] pH (U) 6.0 [pH] Invalid Interpretation Code 5.0-9.0 [facility] Comment on above: Order Comment: Urina ry Catheter Insertion triggered Urinalysis With Culture Reflex order by discern. Performed By: #### 1 [id number] ####[address] [address] Protein (U) [Mass/Vol] Negative Normal Negative [facility] Comment on above: Order Comment: Urina ry Catheter Insertion triggered Urinalysis With Culture Reflex order by discern. Performed By: #### 1 5306630 ####[place] [address] Specific gravity (U) [Rel density] 1.010 Invalid Interpretation Code 1.005-1.030 [facility] Comment on above: Order Comment: Urina ry Catheter Insertion triggered Urinalysis With Culture Reflex order by discern. Performed By: #### 1 3005035 ####[place] [address] Type of Urine collection method Red Normal [facility] Comment on above: Order Comment: Urina ry Catheter Insertion triggered Urinalysis With Culture Reflex order by discern. Performed By: #### 1 5571210 ####[place] 5855357 Urobilinogen Qn (U) 0.2 {Lei'U}/dL Normal 0.0-1.0 [facility] Comment on above: Order Comment: Urina ry Catheter Insertion triggered Urinalysis With Culture Reflex order by discern. Performed By: #### 1 1441335 ####[place] 5855357 WBC Auto Ql (U) Negative Normal Negative [facility] Comment on above: Order Comment: Urina ry Catheter Insertion triggered Urinalysis With Culture Reflex order by discern. Performed By: #### 1 5507433 ####[place] 5855357 WBC casts LM.LPF (Urine sed) [#/Area] 0-3 Normal [facility] Comment on above: Order Comment: Urina ry Catheter Insertion triggered Urinalysis With Culture Reflex order by discern. Performed By: #### 1 6581796 ####[facility] [address] [place] [address] WBC LM.HPF (Urine sed) [#/Area] 0-5 Normal 0-5 [facility] Comment on above: Order Comment: Urina ry Catheter Insertion triggered Urinalysis With Culture Reflex order by discern. Performed By: #### 1 0812230 ####[facility] [address] [place] [address] URINALYSISOrdered By: Houston Castillo on 11-30-2022 Bacteria [...] AM) Normal Negative [facility] UA Auto SS Oaks.plasma/Oaks.R BC (Bld) [Mass ratio] 0-3 /HPF Normal [...] Spec Desc Red (11/30/22 11:00 AM) Normal [facility] UA Auto SS Urobilinogen Qn (U) 0.0467214 {Lei'U}/dL Normal 0.0 - 1.0 EU/dL [facility] UA Auto SS WBC Auto Ql (U) Negative (11/30/22 11:00 AM) Normal Negative [facility] UA Auto SS WBC casts LM.LPF (Urine sed) [#/Area] 0-3 (11/30/22 11:00 AM) Normal [facility] UA Auto SS WBC LM.HPF (Urine sed) [#/Area] 0-5 /HPF Normal 0-5/HPF [facility] UA Auto SS eGFRon 11-30-2022 GFR/1.73 sq M.predicted among non-blacks MDRD (S/P/Bld) [Vol rate/Area] 69 mL/min/1.73 m2 Normal >=59 [facility] Comment on above: Order Comment: Order added by Discern Expert. Result Comment: Machinist earnest kidney disease could be indicated at eGFR's of less than 60 mL/min/1.73m2. Kidney failure is indicated at less than 15 mL/min/1.73m2. Performed By: #### 2 259928, 9868903, 80158106 ####[facility] [address] [place] [address] Auto Diffon 11-29-2022 Basophils/100 WBC (Bld) 0.5 % Normal 0.0-2.0 [facility] Comment on above: Order Comment: Order Added by Discern Expert. Performed By: #### 2 090697, 9485136, 3381607, 02105945, 37511320, 7663499, 59064208, 8610961, 78849451, 185412963, 7902720, 9270313 ####[facility] [address] [place] [address] Basophils/Leukocytes Auto (Bld) [Pure # fraction] 0.0 E9/L Normal 0.0-0.2 [facility] Comment on above: Order Comment: Order Added by Discern Expert. Performed By: #### 2 608938, 2180168, 3239460, 53134569, 38028696, 9567032, 05011932, 5824163, 83952210, 764569908, 8848646, 6893316 ####[facility] [address] [place] [address] Eosinophils/100 WBC (Bld) 8.4 % High 0.0-8.0 [facility] Comment on above: Order Comment: Order Added by Discern Expert. Performed By: #### 2 759667, 5449017, 4854145, 35449687, 19085495, 4348524, 65954157, 2213708, 55732462, 085315817, 5145967, 1179499 ####[facility] [address] [place] [address] Eosinophils/Leukocytes Auto (Bld) [Pure # fraction] 0.6 E9/L High 0.0-0.5 [facility] Comment on above: Order Comment: Order Added by Discern Expert. Performed By: #### 2 366423, 5859602, 4858002, 67435072, 36583846, 0073682, 43463632, 6385948, 84754234, 896288803, 6339035, 2473659 ####[facility] [address] [place] [address] Lymphocytes/100 WBC (Bld) 15.8 % Normal 14.0-50.0 [facility] Comment on above: Order Comment: Order Added by Discern Expert. Performed By: #### 2 106030, 6357202, 4787338, 83573191, 70188329, 8844233, 80597141, 0821406, 07379515, 010663478, 3351809, 8840483 ####[facility] [address] [place] [address] Lymphocytes/Leukocytes Auto (Bld) [Pure # fraction] 1.2 E9/L Normal 1.0-4.0 [facility] Comment on above: Order Comment: Order Added by Discern Expert. Performed By: #### 2 099912, 7989971, 2195500, 14841801, 14845388, 9047236, 99411503, 1361759, 57617848, 834331354, 9869486, 9592149 ####[facility] [address] [place] [address] Monocytes/100 WBC (Bld) 8.4 % Normal 4.0-14.0 [facility] Comment on above: Order Comment: Order Added by Discern Expert. Performed By: #### 2 717698, 0173917, 1451455, 96702441, 85184807, 5674613, 21479823, 4972399, 68389140, 445150395, 6050111, 7409768 ####[facility] [address] [place] [address] Monocytes/Leukocytes Auto (Bld) [Pure # fraction] 0.6 E9/L Normal 0.2-1.0 [facility] Comment on above: Order Comment: Order Added by Discern Expert. Performed By: #### 2 495014, 2221704, 3755269, 39930068, 86590740, 4724279, 57192689, 6451603, 72208667, 841452528, 1913239, 1829228 ####[facility] [address] [place] [address] Neutrophils/100 WBC (Bld) 66.9 % Normal 36.0-75.0 [facility] Comment on above: Order Comment: Order Added by Discern Expert. Performed By: #### 2 869264, 4215051, 5160247, 68444839, 20614778, 5463028, 54911057, 2412945, 52284225, 072670882, 5577792, 8810229 ####[facility] [address] [place] [address] Neutrophils/Leukocytes Auto (Bld) [Pure # fraction] 5.0 E9/L Normal 2.0-7.5 [facility] Comment on above: Order Comment: Order Added by Discern Expert. Performed By: #### 2 822916, 0928569, 3688900, 83662076, 91171405, 5341229, 89900819, 0907443, 05831461, 895615180, 6657110, 8673444 ####[facility] [address] [place] [address] BMPon 11-29-2022 Anion gap [Moles/Vol] 13 mmol/L Normal 6-16 [facility] Comment on above: Performed By: #### 2 873217, 8742513, 9521208, 33481318, 85866434, 4313386, 60125378, 2071876, 46858893, 432151843, 1743793, 4765216 ####[facility] [address] [place] [address] Calcium [Mass/Vol] 9.1 mg/dL Normal 8.9-11.1 [facility] Comment on above: Performed By: #### 2 019816, 3368446, 8359814, 46512128, 02098552, 6072440, 42656903, 5930554, 42817653, 735384745, 6068651, 6052882 ####[facility] [address] [place] [address] Chloride [Moles/Vol] 102 mmol/L Normal 101-111 [facility] Comment on above: Performed By: #### 2 000026, 3928555, 3421461, 68475900, 65177573, 4067747, 19181084, 9323802, 24982527, 498912051, 4897018, 3683306 ####[facility] [address] [place] [address] CO2 [Moles/Vol] 29 mmol/L Normal 21-31 [facility] Comment on above: Performed By: #### 2 069048, 5480466, 4167739, 16736111, 61708612, 1834860, 20738457, 5233521, 45862650, 270125559, 7666787, 8802056 ####[facility] [address] [place] [address] Creatinine [Mass/Vol] 1.1 mg/dL Normal 0.5-1.3 [facility] Comment on above: Performed By: #### 2 907128, 8107852, 8883734, 85984184, 25902562, 0763048, 56199276, 0247725, 07876068, 185095781, 6750692, 9362866 ####[facility] [address] [place] [address] Glucose [Mass/Vol] 95 mg/dL Normal 55-199 [facility] Comment on above: Result Comment: If t his glucose result represents a fasting glucose, interpretation should refer to the following reference range: 55-99 mg/dL Performed By: #### 2 963170, 6546734, 8234514, 96287420, 75148556, 9052838, 16239472, 0429619, 72470092, 870946948, 4305067, 2767910 ####[facility] [address] [place] [address] Potassium [Moles/Vol] 3.9 mmol/L Normal 3.5-5.3 [facility] Comment on above: Performed By: #### 2 965535, 8607564, 5518299, 41597106, 75638170, 0905018, 38682496, 3600231, 99282174, 747256022, 5351475, 1432247 ####[facility] [address] [place] [address] Sodium [Moles/Vol] 140 mmol/L Normal 135-145 [facility] Comment on above: Performed By: #### 2 579699, 2463911, 2262343, 82719074, 42325954, 4375683, 66128169, 7221558, 86088890, 526169994, 9055157, 6153792 ####[facility] [address] [place] [address] Urea nitrogen [Mass/Vol] 16 mg/dL Normal 5-21 [facility] Comment on above: Performed By: #### 2 610597, 9670214, 7908179, 65755146, 87048910, 6846404, 13341478, 6441153, 15941532, 005739198, 6257305, 7874151 ####[facility] [address] [place] [address] Urea nitrogen/Creatinine [Mass ratio] 14 No Units Normal 10-20 [facility] Comment on above: Performed By: #### 2 040736, 1796880, 2766959, 29537949, 56496093, 2386501, 79364269, 9124575, 17473441, 633821744, 9994988, 5153859 ####[facility] [address] [place] [address] BNPon 11-29-2022 Natriuretic peptide B (Bld) [Mass/Vol] 855 pg/mL High 5-80 [facility] Comment on above: Performed By: #### 2 606667, 1883691, 3752709, 26584351, 13452580, 8270439, 88685477, 5564220, 50773203, 641827508, 5665422, 5794681 ####[facility] [address] [place] [address] CBC w/ Auto Diffon 3 Erythrocyte distribution width (RBC) [Ratio] 14.9 % High 10.9-14.2 [facility] Comment on above: Performed By: #### 2 499633, 7997256, 5117957, 29256652, 41434226, 3143438, 47957490, 4024823, 44100743, 830885703, 4762378, 9631448 ####[facility] [address] [place] [address] Hematocrit (Bld) [Volume fraction] 38.1 % Normal 37.7-49.0 [facility] Comment on above: Performed By: #### 2 346250, 3498490, 2944513, 21107472, 08728639, 9515346, 37474253, 6172279, 82752680, 760321274, 9587932, 8914715 ####[facility] [address] [place] [address] Hemoglobin (Bld) [Mass/Vol] 12.8 g/dL Low 13.5-17.5 [facility] Comment on above: Performed By: #### 2 932618, 7027488, 9986571, 03922284, 21306147, 2985476, 11827877, 7269382, 43973342, 606649419, 7102840, 1724661 ####[facility] [address] [place] [address] MCH (RBC) [Entitic mass] 29.0 pg Normal 27.0-34.0 [facility] Comment on above: Performed By: #### 2 608269, 1566101, 7881165, 07534304, 29772039, 5944642, 43432738, 3382740, 92228758, 714189002, 8769476, 5207094 ####[facility] [address] [place] [address] MCHC (RBC) [Mass/Vol] 33.7 g/dL Normal 31.4-36.0 [facility] Comment on above: Performed By: #### 2 986121, 6584805, 2107195, 68037060, 41105799, 9312867, 59832842, 9749086, 22592860, 463156459, 9298171, 0852353 ####[facility] [address] [place] [address] MCV (RBC) [Entitic vol] 86.1 fL Normal 80.0-100.0 [facility] Comment on above: Performed By: #### 2 477242, 1733916, 5930876, 76039118, 17096253, 6478348, 93963190, 7369991, 35627001, 736141893, 1562803, 0752886 ####[facility] [address] [place] [address] Platelet mean volume (Bld) [Entitic vol] 10.9 fL High 6.4-10.8 [facility] Comment on above: Performed By: #### 2 360838, 8312668, 4120138, 44081941, 49744032, 6402028, 74720696, 1519843, 06576840, 008973319, 2646608, 4859197 ####[facility] [address] [place] [address] Platelets (Bld) [#/Vol] 189.0 E9/L Normal 150.0-500.0 [facility] Comment on above: Performed By: #### 2 602122, 0048440, 7719220, 77922041, 31534674, 9617218, 71194089, 6266415, 91805688, 445461208, 7623084, 9921891 ####[address] [address] RBC (Bld) [#/Vol] 4.4 E12/L Normal 4.3-5.9 [facility] Comment on above: Performed By: #### 2 718548, 5497079, 6341955, 73313066, 94093489, 8510995, 28772704, 6594553, 70705576, 595994230, 0367277, 0818579 ####[facility] [address] [place] [address] WBC corrected for nucl RBC Auto (Bld) [#/Vol] 7.4 E9/L Normal 4.0-11.0 [facility] Comment on above: Performed By: #### 2 195736, 8083968, 6277907, 95072076, 96986689, 3099675, 68560824, 3565074, 34457928, 537193053, 5533049, 2107017 ####[facility] [address] [place] [address] CHEMISTRYOrdered By: SYSTEM SYSTEM on 11-29-2022 Albumin [Mass/Vol] 3.6 g/dL Normal 3.3 - 5.0 gm/dL [facility] Remisol Albumin/Globulin [Mass ratio] 1.2 {ratio} Normal [...] Result Comment: Perf ormed at: [facility] [address] [id number] PhD Michael Cortes CKon 11-29-2022 CK [Catalytic activity/Vol] 1096 Int._Unit/L Abnormal 14-261 [facility] Comment on above: Result Comment: Crit ical Result verified by repeat analysis\Critical Result [id number] Called to MANAS BARBA AT by AMY JOHNSON and read back for confirmation at 11/29/2022 06:40:15 Performed By: #### 2 906149, 1375103, 1248911, 01885428, 71120639, 6872009, 25271525, 0339500, 40582404, 898341682, 0534662, 4990907 ####[facility] [address] [place] [address] CT Abdomen/Pelvis w/ Contras ton 11-29-2022 CT Abdomen/Pelvis w/ Contrast Normal [facility] CT Head or Brain w/o Contras ton 11-29-2022 CT Head or Brain w/o Contrast Normal [facility] CTA Cheston 11-29-2022 CTA Chest Normal [facility] Capillary Glucose POCon Glucose [Mass/Vol] 122 mg/dL High 55-99 [facility] Comment on above: Result Comment: Gareth guerrero RN/ Performed By: #### 2 49888208 ####[facility] [address] [place] [address] Glucose [Mass/Vol] 174 mg/dL High 55-99 [facility] Comment on above: Performed By: #### 2 73188571 ####[facility] [address] [place] [address] Glucose [Mass/Vol] 107 mg/dL High 55-99 [facility] Comment on above: Result Comment: Gareth GARDINER Performed By: #### 2 22191584 ####[facility] [address] [place] [address] Consultation Noteon 11-30-19 Consultation Note Normal [facility] Comment on above: Result Comment: Elec tronically Signed By: Marcus POTTS, [place]\Date and Time Signed: 11/29/22 14:44 EDT ED Clinical Summaryon 2022 ED Clinical Summary Normal [facility] ED Note-Physicianon 11-30-19 23 ED Note-Physician Normal [facility] Comment on above: Result Comment: Elec tronically Signed By: Elkin Hitchcock DO\.br\Date and Time Signed: 11/28/22 22:32 EDT ED Patient Education Noteon 11-29-2022 ED Patient Education Note Normal [facility] ED Patient Summaryon 023 ED Patient Summary Normal [facility] HEMATOLOGYOrdered By: SYSTEM SYSTEM on 11-29-2022 [...] 11-29-2022 Albumin [Mass/Vol] 3.6 g/dL Normal 3.3-5.0 [facility] Comment on above: Performed By: #### 2 699332, 6212632, 3834872, 59226102, 02253451, 9935237, 80368231, 8221932, 83402380, 089655299, 7637162, 4546949 ####[facility] [address] [place] [address] Albumin/Globulin (S) [Mass conc ratio] 1.2 Normal 1.1-2.2 [facility] Comment on above: Performed By: #### 2 573893, 1466838, 3991575, 87926572, 40956514, 2317597, 12476018, 5329408, 66146737, 460017589, 4115972, 8538425 ####[facility] [address] [place] [address] ALP [Catalytic activity/Vol] 40 Int._Unit/L Normal 21-98 [facility] Comment on above: Performed By: #### 2 411017, 9956381, 0318322, 26679626, 90995574, 0450746, 33289336, 0769443, 27921417, 511846895, 1388640, 6120285 ####[facility] [address] [place] [address] ALT No additional P-5'-P [Catalytic activity/Vol] 17 Int._Unit/L Normal 6-46 [facility] Comment on above: Performed By: #### 2 362693, 6409310, 1947008, 82166433, 07271881, 9535294, 96144701, 1407533, 89527448, 646773281, 0487412, 5689505 ####[facility] [address] [place] [address] AST [Catalytic activity/Vol] 33 Int._Unit/L Normal 5-43 [facility] Comment on above: Performed By: #### 2 943185, 3315500, 6236481, 01043640, 68402500, 6069627, 62716543, 9485981, 29467118, 469263680, 9677479, 4021071 ####[facility] [address] [place] [address] Bilirubin [Mass/Vol] 1.1 mg/dL Normal 0.0-1.1 [facility] Comment on above: Performed By: #### 2 034654, 2337850, 8668395, 90204409, 41260761, 9987215, 46413029, 0805781, 15042721, 312391190, 1052459, 3642823 ####[facility] [address] [place] [address] Bilirubin.direct [Mass/Vol] 0.2 mg/dL Normal 0.1-0.4 [facility] Comment on above: Performed By: #### 2 823073, 6855178, 3181615, 92105571, 08350866, 0590047, 43276043, 5439363, 51142938, 937507535, 6473424, 0862370 ####[facility] [address] [place] [address] Bilirubin.indirect [Mass or moles/Vol] 0.9 mg/dL Normal 0.1-0.9 [facility] Comment on above: Performed By: #### 2 924234, 0719273, 8588063, 14385952, 85098301, 0155747, 25466642, 5025868, 20193836, 257601409, 6507606, 0947783 ####[facility] [address] [place] [address] Globulin (S) [Mass/Vol] 3.1 g/dL Normal 1.4-4.0 [facility] Comment on above: Performed By: #### 2 899581, 3074426, 1649231, 73871105, 43322683, 7264963, 59904418, 3240221, 25683770, 546128035, 0194567, 4900821 ####[facility] [address] [place] [address] Protein [Mass/Vol] 6.7 g/dL Normal 6.0-7.8 [facility] Comment on above: Performed By: #### 2 582312, 5062985, 0203905, 48738263, 21692806, 8208869, 73342629, 0220173, 34861910, 005058372, 9195437, 2106885 ####[facility] [address] [place] [address] Interdisciplinary Note - Santosh e Manageron 11-29-2022 Interdisciplinary Note - Elevator Examiner And Adjuster Normal [facility] Comment on above: Result Comment: Elec tronically Signed By: Jose HAYDEN, Norma\.br\Date and Time Signed: 11/29/22 15:07 EDT Lipid Panelon 11-29-2022 Cholesterol [Mass/Vol] 114 mg/dL Low 120-200 [facility] Comment on above: Performed By: #### 2 045054, 8315536, 2115268, 10040268, 80264562, 1081244, 41552858, 6643609, 20418238, 102233092, 7571171, 9503317 ####[facility] [address] [place] [address] Cholesterol in HDL [Mass/Vol] 50 mg/dL Invalid Interpretation Code [facility] Comment on above: Result Comment: HDL > or equal to 60 mg/dL: Low cardiovascular riskHDL < 40 mg/dL : High cardiovascular risk Performed By: #### 2 381985, 9450281, 3165107, 18902260, 78797288, 5892717, 42076310, 2690036, 55606071, 686372316, 3220409, 5381707 ####[facility] [address] [place] [address] Cholesterol in LDL [Mass/Vol] 43 mg/dL Normal <=129 [facility] Comment on above: Performed By: #### 2 695526, 5826072, 7669836, 35232173, 10569142, 6088121, 57825455, 6819937, 89743891, 706362614, 3202271, 6222329 ####[facility] [address] [place] [address] Cholesterol in VLDL [Mass/Vol] 14 mg/dL Normal 7-40 [facility] Comment on above: Performed By: #### 2 318682, 2858374, 7128397, 22543462, 21925210, 5822324, 52941172, 0914195, 29836743, 786108363, 3101764, 0434307 ####[facility] [address] [place] [address] Triglyceride [Mass/Vol] 72 mg/dL Normal <=149 [facility] Comment on above: Performed By: #### 2 737426, 4265922, 6080092, 71467040, 08339286, 7085718, 72934851, 5303373, 39866762, 586065906, 9387027, 8687949 ####[facility] [address] [place] [address] Monitor Recordon 11-29-2022 Monitor Record [id number]# 1.00CD:127 Normal [facility] Monitor Record [id number]# 1.00CD:127 Normal [facility] Monitor Record [id number]# 1.00CD:127 Normal [facility] Monitor Record [id number]# 1.00CD:127 Normal [facility] Monitor Record [id number]# 1.00CD:127 Normal [facility] Monitor Record [id number]# 1.00CD:127 Normal [facility] Monitor Record [id number]# 1.00CD:127 Normal [facility] Monitor Record [id number]# 1.00CD:127 Normal [facility] Progress Note-Physicianon Progress Note-Physician [facility] Comment on above: Result Comment: Elec tronically Signed By: New Johnson DO.br\Date and Time Signed: 11/29/22 10:54 EDT RAD - Preliminary Cat Scan R eporton 11-29-2022 RAD - Preliminary Cat Scan Report [id number] #1.00CD:127 Normal [facility] Sed Rate Automatedon 023 Sed Rate Automated 17 mm/hr Normal 0-19 [facility] Comment on above: Performed By: #### 2 418503, 3339751, 3912062, 75604770, 78663287, 3647363, 35162497, 5181157, 14294880, 673768484, 2117699, 0319538 ####[facility] [address] [place] [address] TSH With T4fr Reflexon 11-29 TSH Qn 3.43 m[IU]/L Normal 0.34-5.60 [facility] Comment on above: Performed By: #### 2 494502, 7379322, 4248190, 00141400, 80170546, 4371758, 55233650, 3219997, 71908139, 161387842, 6410977, 8104198 ####[facility] [address] [place] [address] Troponin 6 Hr.on 11-29-2022 Troponin I.cardiac [Mass/Vol] 32.60 pg/mL Normal 15.90-38.40 [facility] Comment on above: Result Comment: The 95% CI (Confidence Interval) PPV (Positive Predictive Value) for myocardial infarction in females is 38 pg/mL, in males 51 pg/mL. The results should be used in conjunction with clinical conditions of myocardial infarction.(Access High Sensitivity Troponin I Instructions For Use, [employer], December 2017) Performed By: #### 1 7301659 ####[facility] [address] [place] [address] Troponin 9 Hr.on 11-29-2022 Troponin I.cardiac [Mass/Vol] 37.00 pg/mL Normal 15.90-38.40 [facility] Comment on above: Result Comment: The 95% CI (Confidence Interval) PPV (Positive Predictive Value) for myocardial infarction in females is 38 pg/mL, in males 51 pg/mL. The results should be used in conjunction with clinical conditions of myocardial infarction.(Access High Sensitivity Troponin I Instructions For Use, [employer], December 2017) Performed By: #### 1 0796583 ####[facility] [address] [place] [address] Vitamin D 25 Hydroxyon 11-29 25-hydroxyvitamin D3 [Mass/Vol] ng/mL Low 30.0-100.0 [facility] Comment on above: Result Comment: Vit palacios D deficiency has been defined as a level of serum 25-OH vitamin D less than 20 ng/mL (1,2) by the [place] of [employer] and an Endocrine Society practice guideline. The Endocrine Society further defined vitamin D insufficiency as a level between 21 and 29 ng/mL (2). 1. IOM ([place] of [employer]). 2010. Dietary reference intakes for calcium and D. [place]: The National Academies Press. 2. Patricia MF, Parisa AGUIRRE, Reji PETERS, et al. Evaluation, treatment, and prevention of vitamin D deficiency: an Endocrine Society clinical practice guideline. JCEM. 2010; 96 (7):1911-30. Performed By: #### 2 770663, 8855050, 3560353, 25183003, 57834494, 5385160, 79650497, 8257609, 08866475, 941152754, 4075609, 3303922 ####[facility] [address] [place] [address] eGFRon 11-29-2022 GFR/1.73 sq M.predicted among non-blacks MDRD (S/P/Bld) [Vol rate/Area] 69 mL/min/1.73 m2 Normal >=59 [facility] Comment on above: Order Comment: Order added by Discern Expert. Result Comment: Machinist earnest kidney disease could be indicated at eGFR's of less than 60 mL/min/1.73m2. Kidney failure is indicated at less than 15 mL/min/1.73m2. Performed By: #### 2 877051, 9189209, 9389550, 84350583, 74699864, 5089582, 79368564, 4207248, 85592814, 551621859, 2341815, 1375006 ####[facility] [address] [place] [address] Auto Diffon 11-28-2022 Basophils/100 WBC (Bld) 0.7 % Normal 0.0-2.0 [facility] Comment on above: Order Comment: Order Added by Discern Expert. Performed By: #### 1 1490308, 0142735, 9812664, 7474212, 15787000 ####[address] [place] [address] Basophils/Leukocytes Auto (Bld) [Pure # fraction] 0.0 E9/L Normal 0.0-0.2 [facility] Comment on above: Order Comment: Order Added by Discern Expert. Performed By: #### 1 0095029, 7048513, 6729976, 3191877, 89814307 ####[address] [address] Eosinophils/100 WBC (Bld) 7.4 % Normal 0.0-8.0 [facility] Comment on above: Order Comment: Order Added by Discern Expert. Performed By: #### 1 8076101, 3820012, 3553028, 3246977, 44439802 ####[address] [address] Eosinophils/Leukocytes Auto (Bld) [Pure # fraction] 0.5 E9/L Normal 0.0-0.5 [facility] Comment on above: Order Comment: Order Added by Bethany Expert. Performed By: #### 1 6414685, 4381263, 0236930, 5013955, 66192440 ####[address] [address] Lymphocytes/100 WBC (Bld) 9.3 % Low 14.0-50.0 [facility] Comment on above: Order Comment: Order Added by Discern Expert. Performed By: #### 1 6976040, 3421767, 3572790, 2251190, 58793806 ####[address] [place] [address] Lymphocytes/Leukocytes Auto (Bld) [Pure # fraction] 0.7 E9/L Low 1.0-4.0 [facility] Comment on above: Order Comment: Order Added by Bethany Expert. Performed By: #### 1 3362946, 5707605, 4514558, 2043467, 88691734 ####[address] [address] Monocytes/100 WBC (Bld) 6.6 % Normal 4.0-14.0 [facility] Comment on above: Order Comment: Order Added by Discern Expert. Performed By: #### 1 1453394, 0305133, 4861614, 0131566, 28059189 ####[facility] [address] [place] [address] Monocytes/Leukocytes Auto (Bld) [Pure # fraction] 0.5 E9/L Normal 0.2-1.0 [facility] Comment on above: Order Comment: Order Added by Discern Expert. Performed By: #### 1 5706959, 9027370, 5895101, 8438849, 56691276 ####[address] [place] [address] Neutrophils/100 WBC (Bld) 76.0 % High 36.0-75.0 [facility] Comment on above: Order Comment: Order Added by Discern Expert. Performed By: #### 1 0631630, 1844886, 2581009, 8538243, 57414969 ####[facility] [address] [place] [address] Neutrophils/Leukocytes Auto (Bld) [Pure # fraction] 5.4 E9/L Normal 2.0-7.5 [facility] Comment on above: Order Comment: Order Added by Discern Expert. Performed By: #### 1 2651654, 6524665, 2409540, 7531193, 55446441 ####[facility] [address] [place] [address] BMPon 11-28-2022 Creatinine [Mass/Vol] 1.0 mg/dL Normal 0.5-1.3 [facility] Comment on above: Performed By: #### 1 9106969, 4693876, 1244593, 4943820, 72385710 ####[facility] [address] [place] [address] Urea nitrogen [Mass/Vol] 16 mg/dL Normal 5-21 [facility] Comment on above: Performed By: #### 1 8978608, 7784745, 1867688, 4036098, 90570216 ####[facility] [address] [place] [address] Urea nitrogen/Creatinine [Mass ratio] 16 No Units Normal 10-20 [facility] Comment on above: Performed By: #### 1 6105252, 8983697, 7890944, 4699631, 29187539 ####[facility] [address] [place] [address] Anion gap [Moles/Vol] 10 mmol/L Normal 6-16 [facility] Comment on above: Performed By: #### 1 4421329, 1274263, 6725149, 7930314, 72550059 ####[facility] [address] [place] [address] Calcium [Mass/Vol] 8.8 mg/dL Low 8.9-11.1 [facility] Comment on above: Performed By: #### 1 5276472, 4853530, 6922945, 1934745, 17764119 ####[facility] [address] [place] [address] Chloride [Moles/Vol] 105 mmol/L Normal 101-111 [facility] Comment on above: Performed By: #### 1 4243202, 6635405, 6183595, 5053545, 70593310 ####[facility] [address] [place] [address] CO2 [Moles/Vol] 28 mmol/L Normal 21-31 [facility] Comment on above: Performed By: #### 1 5178006, 1600103, 4035016, 6087436, 07240117 ####[facility] [address] [place] [address] Glucose [Mass/Vol] 114 mg/dL Normal 55-199 [facility] Comment on above: Result Comment: If t his glucose result represents a fasting glucose, interpretation should refer to the following reference range: 55-99 mg/dL Performed By: #### 1 3344456, 6167231, 0253325, 7836402, 86022838 ####[facility] [address] [place] [address] Potassium [Moles/Vol] 4.1 mmol/L Normal 3.5-5.3 [facility] Comment on above: Performed By: #### 1 0091602, 2629977, 2081499, 3691436, 90654321 ####[facility] [address] [place] [address] Sodium [Moles/Vol] 139 mmol/L Normal 135-145 [facility] Comment on above: Performed By: #### 1 9315535, 8393344, 7014767, 1820820, 13585149 ####[address] [place] [address] Blood Gas Art, with Lytes, Paula christal, [place] 11-28-2022 a/A Ratio Art 53.40 % Normal >=0.80 [facility] Comment on above: Performed By: #### 4 70854845 ####[address] [address] AaDO2 Art 64.9 mmHg High 5.0-15.0 [facility] Comment on above: Performed By: #### 4 07339602 ####[address] [address] Allens Test Positive Normal [facility] Comment on above: Performed By: #### 4 05711407 ####[address] [place] [address] Base Excess Arterial 2.9 mmol/L Normal >=2.8 [facility] Comment on above: Performed By: #### 4 22825588 ####[address] [place] [address] cCa2+ Art 4.88 mg/dL Normal 4.40-5.30 [facility] Comment on above: Performed By: #### 4 73870738 ####[facility] [address] [place] [address] cCl- Art 103.0 mmol/L Normal 101.0-111.0 [facility] Comment on above: Performed By: #### 4 92165957 ####[facility] [address] [place] [address] cGlu Art 98 mg/dL Normal 55-99 [facility] Comment on above: Performed By: #### 4 68903536 ####[facility] [address] [place] [address] cK+ Art 3.6 mmol/L Normal 3.5-5.3 [facility] Comment on above: Performed By: #### 4 83556754 ####[facility] [address] [place] [address] cLac Art .6 mmol/L Normal .5-2.2 [facility] Comment on above: Performed By: #### 4 44207749 ####[facility] [address] [place] [address] airport guide+ Art 139.0 mmol/L Normal 135.0-145.0 [facility] Comment on above: Performed By: #### 4 83178710 ####[facility] [address] [place] [address] Drawn by nmb Invalid Interpretation Code [facility] Comment on above: Performed By: #### 4 89279344 ####[facility] [address] [place] [address] FCOHb Art 1.5 % Normal 1.5-4.9 [facility] Comment on above: Result Comment: Refe rence rangeNonsmoker <1.5%Smoker <5.0%Heavy Smoker <9.0% Performed By: #### 4 71364846 ####[facility] [address] [place] [address] FIO2 BG 28 Invalid Interpretation Code [facility] Comment on above: Performed By: #### 4 08532999 ####[facility] [address] [place] [address] Flow 2 Invalid Interpretation Code [facility] Comment on above: Performed By: #### 4 57765639 ####[facility] [address] [place] [address] FMetHb Art 0.3 % Normal 0.0-1.9 [facility] Comment on above: Performed By: #### 4 19562258 ####[facility] [address] [address] FO2Hb Art 93.7 % Normal 93.0-100.0 [facility] Comment on above: Performed By: #### 4 68564897 ####[address] [place] [address] HCO3 (Bld) [Moles/Vol] 26.9 mmol/L High 22.0-26.0 [facility] Comment on above: Performed By: #### 4 60945673 ####[address] [address] Hemoglobin (Bld) [Mass/Vol] 11.9 g/dL Low 12.0-17.0 [facility] Comment on above: Performed By: #### 4 84892670 ####[facility] [address] [facility] [address] Oxygen saturation in Blood 95.4 % Normal 95.0-100.0 [facility] Comment on above: Performed By: #### 4 24961507 ####[facility] [address] [place] [address] P CO2 Arterial 47.6 mmHg High 35.0-45.0 [facility] Comment on above: Performed By: #### 4 55902661 ####[facility] [address] [place] [address] P O2 Arterial 74.3 mmHg Low 80.0-100.0 [facility] Comment on above: Performed By: #### 4 54797767 ####[facility] [address] [address] pH Arterial 7.387 Normal 7.350-7.450 [facility] Comment on above: Performed By: #### 4 73136824 ####[facility] [address] [place] [address] Sample Site R Radial Normal [facility] Comment on above: Performed By: #### 4 74508317 ####[place] [address] Sample Type Arterial Draw Normal [facility] Comment on above: Performed By: #### 4 99674250 ####[facility] [address] [place], [place] [address] CBC w/ Auto Diffon 3 Erythrocyte distribution width (RBC) [Ratio] 14.8 % High 10.9-14.2 [facility] Comment on above: Performed By: #### 1 7647320, 5669828, 0648135, 0845725, 52173723 ####[place] [address] Hematocrit (Bld) [Volume fraction] 37.3 % Low 37.7-49.0 [facility] Comment on above: Performed By: #### 1 8257606, 3925606, 8288787, 3032843, 06220429 ####[facility] [address] [place] [address] Hemoglobin (Bld) [Mass/Vol] 12.3 g/dL Low 13.5-17.5 [facility] Comment on above: Performed By: #### 1 4707268, 8899881, 5205779, 2886986, 26867247 ####[facility] [address] [place] [address]157 MCH (RBC) [Entitic mass] 28.3 pg Normal 27.0-34.0 [facility] Comment on above: Performed By: #### 1 2165611, 6410487, 7085948, 2736080, 03434940 ####[address] [place] [address] MCHC (RBC) [Mass/Vol] 33.0 g/dL Normal 31.4-36.0 [facility] Comment on above: Performed By: #### 1 1621580, 7266889, 3488132, 6642640, 63984304 ####[address] [place] [address] MCV (RBC) [Entitic vol] 85.9 fL Normal 80.0-100.0 [facility] Comment on above: Performed By: #### 1 6218004, 6806804, 4188032, 1696498, 50036842 ####[address] [address] Platelet mean volume (Bld) [Entitic vol] 10.4 fL Normal 6.4-10.8 [facility] Comment on above: Performed By: #### 1 5250680, 8676106, 5747482, 8022613, 50499538 ####[address] [address] Platelets (Bld) [#/Vol] 189.0 E9/L Normal 150.0-500.0 [facility] Comment on above: Performed By: #### 1 1350924, 4200796, 0942262, 8441657, 87864159 ####[place] [address] RBC (Bld) [#/Vol] 4.3 E12/L Normal 4.3-5.9 [facility] Comment on above: Performed By: #### 1 1048878, 1421505, 7668560, 9331819, 21869510 ####[address] [address] WBC corrected for nucl RBC Auto (Bld) [#/Vol] 7.1 E9/L Normal 4.0-11.0 [facility] Comment on above: Performed By: #### 1 2277147, 9035437, 2263973, 4545599, 82540508 ####[address] [address] CHEMISTRYOrdered By: SYSTEM SYSTEM on 11-28-2022 Troponin I.cardiac [Mass/Vol] 32.60 pg/mL Normal 15.90 - 38.40 pg/mL [facility] Remisol Troponin I.cardiac [Mass/Vol] 26.90 pg/mL Normal 15.90 - 38.40 pg/mL [facility] Remisol Consent for Treatmenton Consent for Treatment [id number] .00CD:127 Normal [facility] ED Note-Physicianon 11-29-19 ED Note-Physician Normal [facility] Comment on above: Result Comment: [...] - 2.2 mmol/L [facility] Resp Auto SS airport guide+ Art 139.0 mmol/L Normal 135.0 - 145.0 [...] 26.9 mmol/L High 22.0 - 26.0 mmol/L [facility] Resp Auto SS Hemoglobin (Bld) [Mass/Vol] 11.9 g/dL Low 12.0 - 17.0 gm/dL [facility] Resp Auto SS P CO2 Arterial 47.6 mm[Hg] High 35.0 - 45.0 mmHg [facility] Resp Auto SS P O2 Arterial 74.3 mm[Hg] Low 80.0 - 100.0 mmHg [facility] Resp Auto SS pH Arterial 7.387 Normal 7.350 - 7.450 [facility] Resp Auto SS Sample Site R Radial (11/28/22 6:55 PM) Normal [facility] Resp Auto SS Sample Type Arterial Draw (11/28/22 6:55 PM) Normal [facility] Resp Auto SS HEMATOLOGYOrdered By: SYSTEM SYSTEM [...] HemeAutoSS Pre-Arrival Noteon 3 Pre-Arrival Note Normal [facility] Troponin 0 Hr.on 11-28-2022 Troponin I.cardiac [Mass/Vol] 21.80 pg/mL Normal 15.90-38.40 [facility] Comment on above: Result Comment: The 95% CI (Confidence Interval) PPV (Positive Predictive Value) for myocardial infarction in females is 38 pg/mL, in males 51 pg/mL. The results should be used in conjunction with clinical conditions of myocardial infarction.(Access High Sensitivity Troponin I Instructions For Use, Claudia Luis, December 2017) Performed By: #### 1 5251507, 5816081, 4625207, 3593737, 06772849 ####[facility] [address] [place] [address] Troponin 3 Hr.on 11-28-2022 Troponin I.cardiac [Mass/Vol] 26.90 pg/mL Normal 15.90-38.40 [facility] Comment on above: Result Comment: The 95% CI (Confidence Interval) PPV (Positive Predictive Value) for myocardial infarction in females is 38 pg/mL, in males 51 pg/mL. The results should be used in conjunction with clinical conditions of myocardial infarction.(Access High Sensitivity Troponin I Instructions For Use, Claudia Amelia, December 2017) Performed By: #### 1 [id number] ####[facility] [address] [place] [address] UA With Cult Reflexon 2022 Crystals LM Ql (Urine sed) Present Normal [facility] Comment on above: Performed By: #### 1 1625804 ####[facility] [address] [place] [address] Epithelial cells.squamous LM.HPF (Urine sed) [#/Area] 0-2 Normal 0-2 [facility] Comment on above: Performed By: #### 1 1976680 ####[facility] [address] [place] [address] Oaks.plasma/Oaks.R BC (Bld) [Mass ratio] 0-3 Normal 0-3 [facility] Comment on above: Performed By: #### 1 7599867 ####[facility] [address] [place] [address] Mucus Ql (Urine sed) TRACE Normal [facility] Comment on above: Performed By: #### 1 1215455 ####[facility] [address] [place] [address] WBC LM.HPF (Urine sed) [#/Area] 0-5 Normal 0-5 [facility] Comment on above: Performed By: #### 1 2195179 ####[facility] [address] [place] [address] Bilirubin Ql (U) Negative Normal Negative [facility] Comment on above: Performed By: #### 1 3199327 ####[facility] [address] [place] [address] Clarity (U) CLEAR Normal Clear [facility] Comment on above: Performed By: #### 1 8940424 ####[facility] [address] [place] [address] Color (U) YELLOW Normal Yellow [facility] Comment on above: Performed By: #### 1 6393654 ####[facility] [address] [place] [address] Glucose Test strip (U) [Mass/Vol] Negative Normal Negative [facility] Comment on above: Performed By: #### 1 8177591 ####[facility] [address] [place] [address] Hemoglobin Ql (U) Negative Normal Negative [facility] Comment on above: Performed By: #### 1 4148848 ####[address] [address] Ketones (U) [Mass/Vol] Negative Normal Negative [facility] Comment on above: Performed By: #### 1 3122928 ####[facility] [address] [place] [address] Nitrite Ql (U) Negative Normal Negative [facility] Comment on above: Performed By: #### 1 5412807 ####[facility] [address] [place] [address] pH (U) 6.0 [pH] Invalid Interpretation Code 5.0-9.0 [facility] Comment on above: Performed By: #### 1 5217197 ####[facility] [address] [place] [address] Protein (U) [Mass/Vol] 2+ Abnormal Negative [facility] Comment on above: Performed By: #### 1 6464276 ####[address] [place] [address] Specific gravity (U) [Rel density] 1.025 Invalid Interpretation Code 1.005-1.030 [facility] Comment on above: Performed By: #### 1 7456939 ####[address] [address] Type of Urine collection method Clean Catch Normal [facility] Comment on above: Performed By: #### 1 2386058 ####[facility] [address] [place] [address] Urobilinogen Qn (U) 0.2 {Lei'U}/dL Normal 0.0-1.0 [facility] Comment on above: Performed By: #### 1 9712940 ####[facility] [address] [place] [address] WBC Auto Ql (U) Negative Normal Negative [facility] Comment on above: Performed By: #### 1 6107514 ####[facility] [address] [place] [address] URINALYSISOrdered By: Emily Suero on 11-28-2022 Bilirubin [...] PM) Normal Negative [facility] UA Auto SS Oaks.plasma/Oaks.R BC (Bld) [Mass ratio] 0-3 /HPF Normal [...] FT UA Auto SS Urobilinogen Qn (U) 0.4127574 {Lei'U}/dL Normal 0.0 - 1.0 EU/dL FT UA Auto SS WBC Auto Ql (U) Negative (11/28/22 5:55 PM) Normal Negative FT UA Auto SS WBC LM.HPF (Urine sed) [#/Area] 0-5 /HPF Normal 0-5/HPF FT UA Auto SS XR Chest Single Viewon 11-28 XR Chest Single View Normal [facility] eGFRon 11-28-2022 GFR/1.73 sq M.predicted among non-blacks MDRD (S/P/Bld) [Vol rate/Area] 77 mL/min/1.73 m2 Normal >=59 [facility] Comment on above: Order Comment: Order added by Discern Expert. Result Comment: Machinist earnest kidney disease could be indicated at eGFR's of less than 60 mL/min/1.73m2. Kidney failure is indicated at less than 15 mL/min/1.73m2. Performed By: #### 1 1574057, 3556762, 6282784, 6920352, 88131270 ####[facility] [address] [place] [address] CHEMISTRYOrdered By: SYSTEM SYSTEM on 11-26-2022 Albumin [...] 87 mL/min/1.73 m2 Normal >=59mL/min/ 1.73 m2 [facility] Chem S Globulin (S) [Mass/Vol] 3.2 g/dL [...] Triglyceride [Mass/Vol] 69 mg/dL Normal <=149mg/dL [facility] Remisol TSH Qn 2.07 m[IU]/L Normal 0.34 - 5.60 mcIU/mL [facility] Remisol Urea nitrogen [Mass/Vol] 18 mg/dL Normal 5 - 21 mg/dL [facility] Remisol Urea nitrogen/Creatinine [Mass ratio] 20 mg/mg Normal 10 - 20 [facility] Remisol CMPon 11-26-2022 Albumin [Mass/Vol] 3.7 g/dL Normal 3.3-5.0 [facility] Comment on above: Performed By: #### 2 249763, 5477993, 67740750, 8783053 ####[facility] [address] [place] [address] Albumin/Globulin (S) [Mass conc ratio] 1.2 Normal 1.1-2.2 [facility] Comment on above: Performed By: #### 2 579593, 9704829, 02189270, 7062930 ####[facility] [address] [place] [address] ALP [Catalytic activity/Vol] 38 Int._Unit/L Normal 21-98 [facility] Comment on above: Performed By: #### 2 350650, 1510094, 99823609, 7512595 ####[facility] [address] [place] [address] ALT No additional P-5'-P [Catalytic activity/Vol] 11 Int._Unit/L Normal 6-46 [facility] Comment on above: Performed By: #### 2 775696, 3378353, 67236750, 5291828 ####[facility] [address] [place] [address] Anion gap [Moles/Vol] 14 mmol/L Normal 6-16 [facility] Comment on above: Performed By: #### 2 037450, 4560186, 50412967, 7787167 ####[facility] [address] [place] [address] AST [Catalytic activity/Vol] 15 Int._Unit/L Normal 5-43 [facility] Comment on above: Performed By: #### 2 325810, 6618545, 57980805, 5953595 ####[facility] [address] [place] [address] Bilirubin [Mass/Vol] 1.0 mg/dL Normal 0.0-1.1 [facility] Comment on above: Performed By: #### 2 717145, 3423111, 26699660, 0393562 ####[facility] [address] [place] [address] Calcium [Mass/Vol] 9.2 mg/dL Normal 8.9-11.1 [facility] Comment on above: Performed By: #### 2 279851, 3967196, 50776323, 4511053 ####[facility] [address] [place] [address] Chloride [Moles/Vol] 107 mmol/L Normal 101-111 [facility] Comment on above: Performed By: #### 2 285817, 1702758, 29272803, 4607519 ####[facility] [address] [place] [address] CO2 [Moles/Vol] 28 mmol/L Normal 21-31 [facility] Comment on above: Performed By: #### 2 768807, 4862075, 16799531, 8119778 ####[facility] [address] [place] [address] Creatinine [Mass/Vol] 0.9 mg/dL Normal 0.5-1.3 [facility] Comment on above: Performed By: #### 2 663122, 2294151, 54333440, 7664164 ####[facility] [address] [place] [address] Globulin (S) [Mass/Vol] 3.2 g/dL Normal 1.4-4.0 [facility] Comment on above: Performed By: #### 2 305162, 7411319, 39127491, 0444073 ####[facility] [address] [place] [address] Glucose [Mass/Vol] 95 mg/dL Normal 55-199 [facility] Comment on above: Result Comment: If t his glucose result represents a fasting glucose, interpretation should refer to the following reference range: 55-99 mg/dL Performed By: #### 2 405804, 6644183, 28144049, 8616282 ####[facility] [address] [place] [address] Potassium [Moles/Vol] 4.2 mmol/L Normal 3.5-5.3 [facility] Comment on above: Performed By: #### 2 292046, 7835572, 10051730, 4939826 ####[facility] [address] [place] [address] Protein [Mass/Vol] 6.9 g/dL Normal 6.0-7.8 [facility] Comment on above: Performed By: #### 2 274060, 9869072, 48419215, 3774355 ####[facility] [address] [place] [address] Sodium [Moles/Vol] 145 mmol/L Normal 135-145 [facility] Comment on above: Performed By: #### 2 257773, 3484696, 95860828, 0811690 ####[facility] [address] [place] [address] Urea nitrogen [Mass/Vol] 18 mg/dL Normal 5-21 [facility] Comment on above: Performed By: #### 2 302385, 0965184, 72569610, 8576056 ####[facility] [address] [place] [address] Urea nitrogen/Creatinine [Mass ratio] 20 No Units Normal 10-20 [facility] Comment on above: Performed By: #### 2 244150, 3670846, 16276338, 0909454 ####[facility] [address] [place] [address] Consent for Treatmenton 0 Consent for Treatment [id number] [facility] [id number]#1 .00CD:127 Normal [facility] Lipid Panelon 11-26-2022 Cholesterol [Mass/Vol] 112 mg/dL Low 120-200 [facility] Comment on above: Performed By: #### 2 397519, 9414283, 90165760, 0599350 ####[facility] [address] [place] [place] [address] Cholesterol in HDL [Mass/Vol] 49 mg/dL Invalid Interpretation Code [facility] Comment on above: Result Comment: HDL > or equal to 60 mg/dL: Low cardiovascular riskHDL < 40 mg/dL : High cardiovascular risk Performed By: #### 2 128944, 8167310, 51774691, 4846485 ####[facility] [address] [place] [address] Cholesterol in LDL [Mass/Vol] 42 mg/dL Normal <=129 [facility] Comment on above: Performed By: #### 2 089527, 3897081, 25978742, 7756671 ####[facility] [address] [place] [address] Cholesterol in VLDL [Mass/Vol] 14 mg/dL Normal 7-40 [facility] Comment on above: Performed By: #### 2 484507, 6773873, 19240005, 9332059 ####[facility] [address] [place] [address] Triglyceride [Mass/Vol] 69 mg/dL Normal <=149 [facility] Comment on above: Performed By: #### 2 302486, 1907708, 82517643, 8806442 ####[facility] [address] [place] [address] Physician Orderon 11-26-2022 Physician Order [id number]# 1.00CD:127 Normal [facility] TSHon 11-26-2022 TSH Qn 2.07 m[IU]/L Normal 0.34-5.60 [facility] Comment on above: Performed By: #### 2 223310, 8104018, 33806630, 5837405 ####[facility] [address] [place] [address] eGFRon 11-26-2022 GFR/1.73 sq M.predicted among non-blacks MDRD (S/P/Bld) [Vol rate/Area] 87 mL/min/1.73 m2 Normal >=59 [facility] Comment on above: Order Comment: Order added by Discern Expert. Result Comment: Machinist earnest kidney disease could be indicated at eGFR's of less than 60 mL/min/1.73m2. Kidney failure is indicated at less than 15 mL/min/1.73m2. Performed By: #### 2 759401, 4424530, 51182969, 9252618 ####[facility] [address] [place] [address] Discharge Instructionson Discharge Instructions [id number]#1 .00CD:127 Normal [facility] Transfer Documentson 023 Transfer Documents [id number]#1 .00CD:127 Normal [facility] Capillary Glucose POCon Glucose [Mass/Vol] 166 mg/dL High 55-99 [facility] Comment on above: Result Comment: Gareth guerrero RN/ Performed By: #### 2 04872342 ####[facility] [address] [place] [address] Glucose [Mass/Vol] 119 mg/dL High 55-99 [facility] Comment on above: Result Comment: Repe at Test Performed By: #### 2 08938604 ####[facility] [address] [place] [address] Discharge Note-Nursingon Discharge Note-Nursing Normal [facility] ZpoA7vym 09-28-2022 HbA1c (Bld) [Mass fraction] 6.4 % High <=5.9 [facility] Comment on above: Order Comment: IF UN ABLE TO ADD TO ED LABS Performed By: #### 2 534427, 785367495 ####[facility] [address] [place] [address] Inpatient Clinical Summaryon 09-28-2022 Inpatient Clinical Summary Normal [facility] Inpatient Patient Summaryon 09-28-2022 Inpatient Patient Summary Normal [facility] Inpatient Patient Summary Normal [facility] Interdisciplinary Note - Santosh e Manageron 09-28-2022 Interdisciplinary Note - Elevator Examiner And Adjuster Normal [facility] Comment on above: Result Comment: Elec tronically Signed By: Jose HAYDEN, Norma\.br\Date and Time Signed: 09/28/22 15:54 EDT Monitor Recordon 09-28-2022 Monitor Record [id number]# 1.00CD:127 Normal [facility] Capillary Glucose POCon Glucose [Mass/Vol] 192 mg/dL High 55-99 [facility] Comment on above: Result Comment: Gareth GARDINER Performed By: #### 2 93050312 ####[facility] [address] [place] [address] Glucose [Mass/Vol] 130 mg/dL High 55-99 [facility] Comment on above: Result Comment: No C overage Given Performed By: #### 2 83700182 ####[facility] [address] [place] [address] Glucose [Mass/Vol] 202 mg/dL High 55-99 [facility] Comment on above: Result Comment: Gareth GARDINER Performed By: #### 2 27381324 ####[facility] [address] [place] [address] Glucose [Mass/Vol] 89 mg/dL Normal 55-99 [facility] Comment on above: Result Comment: Gareth GARDINER Performed By: #### 2 47576820 ####[facility] [address] [place] [address] Insurance Correspondence Off iceon 09-27-2022 Insurance Correspondence Office [id number]# 1.00CD:127 Normal [facility] Interdisciplinary Note - Santosh e Manageron 09-27-2022 Interdisciplinary Note - Elevator Examiner And Adjuster [facility] Comment on above: Result Comment: [...] needs anticipated upon d/c home. AM-PAC Normal [facility] Lyteson 09-27-2022 Anion gap [Moles/Vol] 9 mmol/L Normal 6-16 [facility] Comment on above: Performed By: #### 2 313636, 409471005 ####[facility] [address] [place] [address] Chloride [Moles/Vol] 105 mmol/L Normal 101-111 [facility] Comment on above: Performed By: #### 2 656013, 208193647 ####[facility] [address] [place] [address] CO2 [Moles/Vol] 26 mmol/L Normal 21-31 [facility] Comment on above: Performed By: #### 2 823715, 525962378 ####[facility] [address] [place] [address] Potassium [Moles/Vol] 4.2 mmol/L Normal 3.5-5.3 [facility] Comment on above: Performed By: #### 2 321451, 700099239 ####[facility] [address] [place] [address] Sodium [Moles/Vol] 136 mmol/L Normal 135-145 [facility] Comment on above: Performed By: #### 2 983809, 777666428 ####[facility] [address] [place] [address] Monitor Recordon 09-27-2022 Monitor Record [id number]# 1.00CD:127 Normal [facility] Monitor Record [id number]# 1.00CD:127 Normal [facility] Progress Note-Nurseon 2022 Progress Note-Nurse Normal [facility] Progress Note-Physicianon Progress Note-Physician Normal [facility] Comment on above: Result Comment: Elec tronically Signed By: Adeline COLEMAN\.br\Date and Time Signed: 09/27/22 15:34 EDT\.br\Electronically Co-Signed By: Adeline COLEMAN\.br\Date and Time Co-Signed: 09/27/22 15:37 EDT\.br\Electronically Co-Signed By: Ganesh Minaya MD\.br\Date and Time Co-Signed: 09/27/22 18:58 EDT Auto Diffon 09-26-2022 Basophils/100 WBC (Bld) 0.5 % Normal 0.0-2.0 [facility] Comment on above: Order Comment: Order Added by Discern Expert. Performed By: #### 1 9984934, 6928060, 4868042, 1924674 ####[facility] [address] [place] [address] Basophils/Leukocytes Auto (Bld) [Pure # fraction] 0.0 E9/L Normal 0.0-0.2 [facility] Comment on above: Order Comment: Order Added by Discern Expert. Performed By: #### 1 7190765, 8823188, 6970201, 9627172 ####[facility] [address] [place] [address] Eosinophils/100 WBC (Bld) 3.3 % Normal 0.0-8.0 [facility] Comment on above: Order Comment: Order Added by Discern Expert. Performed By: #### 1 8410887, 6403505, 1646283, 2344353 ####[facility] [address] [place] [address] Eosinophils/Leukocytes Auto (Bld) [Pure # fraction] 0.3 E9/L Normal 0.0-0.5 [facility] Comment on above: Order Comment: Order Added by Discern Expert. Performed By: #### 1 9750800, 5458975, 0132526, 5154653 ####[address] [address] Lymphocytes/100 WBC (Bld) 9.5 % Low 14.0-50.0 [facility] Comment on above: Order Comment: Order Added by Discern Expert. Performed By: #### 1 2817434, 7588617, 8999715, 4322058 ####[address] [address] Lymphocytes/Leukocytes Auto (Bld) [Pure # fraction] 0.8 E9/L Low 1.0-4.0 [facility] Comment on above: Order Comment: Order Added by Discern Expert. Performed By: #### 1 7485625, 6584800, 9849836, 2074507 ####[address] [address] Monocytes/100 WBC (Bld) 7.2 % Normal 4.0-14.0 [facility] Comment on above: Order Comment: Order Added by Discern Expert. Performed By: #### 1 2441576, 8378860, 7622860, 7626850 ####[address] [address] Monocytes/Leukocytes Auto (Bld) [Pure # fraction] 0.6 E9/L Normal 0.2-1.0 [facility] Comment on above: Order Comment: Order Added by Bethany Expert. Performed By: #### 1 6663729, 7797151, 9029860, 4755503 ####[address] [address] Neutrophils/100 WBC (Bld) 79.5 % High 36.0-75.0 [facility] Comment on above: Order Comment: Order Added by Discern Expert. Performed By: #### 1 5118117, 3108028, 6870680, 1513959 ####[facility] [address] [place] [address] Neutrophils/Leukocytes Auto (Bld) [Pure # fraction] 6.7 E9/L Normal 2.0-7.5 [facility] Comment on above: Order Comment: Order Added by Discern Expert. Performed By: #### 1 5553275, 4218088, 2593476, 8322442 ####[facility] [address] [place] [address] BMPon 09-26-2022 Creatinine [Mass/Vol] 1.0 mg/dL Normal 0.5-1.3 [facility] Comment on above: Performed By: #### 1 6395251, 4507838, 0621015, 9300294 ####[facility] [address] [place] [address] Urea nitrogen [Mass/Vol] 25 mg/dL High 5-21 [facility] Comment on above: Performed By: #### 1 7487817, 4873009, 7471570, 0920104 ####[facility] [address] [place] [address] Urea nitrogen/Creatinine [Mass ratio] 25 No Units High 10-20 [facility] Comment on above: Performed By: #### 1 5182826, 7212642, 9426044, 8532313 ####[facility] [address] [place] [address] Anion gap [Moles/Vol] 10 mmol/L Normal 6-16 [facility] Comment on above: Performed By: #### 1 4682272, 4947360, 2233003, 4555242 ####[facility] [address] [place] [address] Calcium [Mass/Vol] 8.9 mg/dL Normal 8.9-11.1 [facility] Comment on above: Performed By: #### 1 6892321, 4775710, 9066903, 3831416 ####[facility] [address] [place] [address] Chloride [Moles/Vol] 101 mmol/L Normal 101-111 [facility] Comment on above: Performed By: #### 1 8206014, 1737133, 6711354, 8511809 ####[facility] [address] [place] [address] CO2 [Moles/Vol] 26 mmol/L Normal 21-31 [facility] Comment on above: Performed By: #### 1 7258684, 1077565, 6444067, 2635275 ####[facility] [address] [place] [address] Glucose [Mass/Vol] 112 mg/dL Normal 55-199 [facility] Comment on above: Result Comment: If t his glucose result represents a fasting glucose, interpretation should refer to the following reference range: 55-99 mg/dL Performed By: #### 1 1525422, 8187286, 7059281, 0313483 ####[address] [address] Potassium [Moles/Vol] 4.1 mmol/L Normal 3.5-5.3 [facility] Comment on above: Performed By: #### 1 4076033, 3625000, 2070783, 9630691 ####[facility] [address] [place] [address] Sodium [Moles/Vol] 133 mmol/L Low 135-145 [facility] Comment on above: Performed By: #### 1 4939704, 7355208, 3478772, 2027564 ####[facility] [address] [place] [address] CBC w/ Auto Diffon 3 Erythrocyte distribution width (RBC) [Ratio] 14.6 % High 10.9-14.2 [facility] Comment on above: Performed By: #### 1 3899116, 3484478, 6172909, 5082844 ####[facility] [address] [place] [address] Hematocrit (Bld) [Volume fraction] 37.6 % Low 37.7-49.0 [facility] Comment on above: Performed By: #### 1 0035134, 9371153, 6177310, 8851577 ####[facility] [address] [place] [address] Hemoglobin (Bld) [Mass/Vol] 12.5 g/dL Low 13.5-17.5 [facility] Comment on above: Performed By: #### 1 3219038, 1046740, 5583327, 0245118 ####[place] [address] MCH (RBC) [Entitic mass] 28.5 pg Normal 27.0-34.0 [facility] Comment on above: Performed By: #### 1 1593147, 0157540, 5558260, 8667837 ####[place] [address] MCHC (RBC) [Mass/Vol] 33.2 g/dL Normal 31.4-36.0 [facility] Comment on above: Performed By: #### 1 1378992, 2852135, 5474599, 6348398 ####[address] [address] MCV (RBC) [Entitic vol] 85.8 fL Normal 80.0-100.0 [facility] Comment on above: Performed By: #### 1 6444720, 9948674, 3821745, 7988490 ####[address] [address] Platelet mean volume (Bld) [Entitic vol] 10.3 fL Normal 6.4-10.8 [facility] Comment on above: Performed By: #### 1 2951796, 5344055, 8814106, 5452443 ####[address] [address] Platelets (Bld) [#/Vol] 164.0 E9/L Normal 150.0-500.0 [facility] Comment on above: Performed By: #### 1 0901991, 7867701, 6028163, 3461929 ####[facility] [address] [place] [address] RBC (Bld) [#/Vol] 4.4 E12/L Normal 4.3-5.9 [facility] Comment on above: Performed By: #### 1 1629976, 3450435, 4504143, 6807064 ####[facility] [address] [place] [address] WBC corrected for nucl RBC Auto (Bld) [#/Vol] 8.4 E9/L Normal 4.0-11.0 [facility] Comment on above: Performed By: #### 1 8606776, 2969501, 3872731, 0439265 ####[facility] [address] [place] [address] Capillary Glucose POCon Glucose [Mass/Vol] 161 mg/dL High 55-99 [facility] Comment on above: Result Comment: Gareth guerrero RN/ Performed By: #### 2 18877756 ####[facility] [address] [place] [address] Consent for Treatmenton Consent for Treatment [id number]#1 .00CD:127 Normal [facility] ED Clinical Summaryon 2022 ED Clinical Summary Normal [facility] ED Note-Physicianon 09-27-19 ED Note-Physician Normal [facility] Comment on above: Result Comment: Elec tronically Signed By: Shane Pan DO\.br\Date and Time Signed: 09/26/22 16:06 EDT ED Patient Education Noteon 09-26-2022 ED Patient Education Note Normal [facility] ED Patient Summaryon 023 ED Patient Summary Normal [facility] EMS Documentationon 09-27-19 EMS Documentation Normal [facility] EMS Documentation Normal [facility] Pre-Arrival Noteon Pre-Arrival Note Normal [facility] Progress Noteson 09-26-2022 Television Actor Authentication Interface Message Text EMERGENCY TRIAGE, TREAT AND TRANSPORT (ET3) DOCUMENTATION OF TELEHEALTH VISIT Date / Time: 09/26/2022929 Name: Clyde Humphrey : 1945 SSN: [id number] EMS Agency: [facility] [x] Verbal consent obtained [] [...] Completed by: Coby Lugo MD Normal [employer] UA With Cult Reflexon 2022 Bilirubin Ql (U) Negative Normal Negative [facility] Comment on above: Order Comment: can s traight cath if needed. Performed By: #### 1 9032233 ####[facility] [address] [place] [address] Clarity (U) CLEAR Normal Clear [facility] Comment on above: Order Comment: can s traight cath if needed. Performed By: #### 1 0565296 ####[facility] [address] [place] [address] Color (U) YELLOW Normal Yellow [facility] Comment on above: Order Comment: can s traight cath if needed. Performed By: #### 1 7355984 ####[facility] [address] [place] [address] Epithelial cells.squamous LM.HPF (Urine sed) [#/Area] 0-2 Normal 0-2 [facility] Comment on above: Order Comment: can s traight cath if needed. Performed By: #### 1 7151463 ####[facility] [address] [place] [address] Glucose Test strip (U) [Mass/Vol] Negative Normal Negative [facility] Comment on above: Order Comment: can s traight cath if needed. Performed By: #### 1 8242507 ####[facility] [address] [place] [address] Hemoglobin Ql (U) Negative Normal Negative [facility] Comment on above: Order Comment: can s traight cath if needed. Performed By: #### 1 7744534 ####[facility] [address] [place] [address] Ketones (U) [Mass/Vol] Negative Normal Negative [facility] Comment on above: Order Comment: can s traight cath if needed. Performed By: #### 1 7184644 ####[facility] [address] [place] [address] Oaks.plasma/Oaks.R BC (Bld) [Mass ratio] 0-3 Normal 0-3 [facility] Comment on above: Order Comment: can s traight cath if needed. Performed By: #### 1 8357155 ####[facility] [address] [place] [address] Nitrite Ql (U) Negative Normal Negative [facility] Comment on above: Order Comment: can s traight cath if needed. Performed By: #### 1 2914529 ####[facility] [address] [place] [address] pH (U) 5.5 [pH] Invalid Interpretation Code 5.0-9.0 [facility] Comment on above: Order Comment: can s traight cath if needed. Performed By: #### 1 4196449 ####[facility] [address] [place] [address] Protein (U) [Mass/Vol] Negative Normal Negative [facility] Comment on above: Order Comment: can s traight cath if needed. Performed By: #### 1 1925528 ####[facility] [address]yn[address] [place] [address] Specific gravity (U) [Rel density] 1.025 Invalid Interpretation Code 1.005-1.030 [facility] Comment on above: Order Comment: can s traight cath if needed. Performed By: #### 1 3782308 ####[facility] [address] [place] [address] Type of Urine collection method Clean Catch Normal [facility] Comment on above: Order Comment: can s traight cath if needed. Performed By: #### 1 1395538 ####[address] [address] Urobilinogen Qn (U) 1.0 {Lei'U}/dL Normal 0.0-1.0 [facility] Comment on above: Order Comment: can s traight cath if needed. Performed By: #### 1 3652823 ####[facility] [address] [place] [address] WBC Auto Ql (U) Negative Normal Negative [facility] Comment on above: Order Comment: can s traight cath if needed. Performed By: #### 1 0213428 ####[facility] [address] [place] [address] WBC LM.HPF (Urine sed) [#/Area] 0-5 Normal 0-5 [facility] Comment on above: Order Comment: can s traight cath if needed. Performed By: #### 1 5949293 ####[facility] [address] [place] [address] XR Chest Single Viewon 09-26 XR Chest Single View Normal [facility] eGFRon 09-26-2022 GFR/1.73 sq M.predicted among non-blacks MDRD (S/P/Bld) [Vol rate/Area] 77 mL/min/1.73 m2 Normal >=59 [facility] Comment on above: Order Comment: Order added by Discern Expert. Result Comment: Machinist earnest kidney disease could be indicated at eGFR's of less than 60 mL/min/1.73m2. Kidney failure is indicated at less than 15 mL/min/1.73m2. Performed By: #### 1 3900239, 1717680, 2144157, 0099884 ####[facility] [address] [place] [address] Progress Noteson 09-07-2022 Television Actor Authentication Interface Message Text EMERGENCY TRIAGE, TREAT AND TRANSPORT (ET3) DOCUMENTATION OF TELEHEALTH VISIT Date / Time: 09/06/20222146 Name: Clyde Humphrey : 1945 SSN: [id number] EMS Agency: [facility] [x] Verbal consent obtained [] [...] Completed by: Marcelino Echavarria MD Normal [employer] Q - CULTURE,URINE,ROUTINEon 06-23-2021 CULTURE, URINE, ROUTINE SEE NOTE Normal N [facility] Rheumatology Specialist Comment on above: Order Comment: [facility] Testing performed at: [facility], [address] [place] [address], [address] [place] [address], [id number], Granite Polisher: Archie Sinha MD [facility] Collection Date/Time: [id number] [facility] Results Received Date/Time: [id number] [facility] Reported Date/Time: [id number] Result Comment: CULT URE, URINE, ROUTINE Micro Number: [id number] Test Status: Final Specimen Source: Urine Specimen Quality: Adequate Result: Mixed genital alvin isolated. These superficial bacteria are not indicative of a urinary tract infection. No further organism identification is warranted on this specimen. If clinically indicated, recollect clean-catch, mid-stream urine and transfer immediately to Urine Culture Transport Tube. Performed By: #### [id number] #### [facility] Default [address] [place] [id number] Q - CULTURE,URINE,ROUTINEon 05-05-2021 CULTURE, URINE, ROUTINE SEE NOTE Normal N [facility] Rheumatology Specialist Comment on above: Order Comment: [facility] Testing performed at: [facility], [address] [place] [address], [address] [place] [address], [phone], Granite Polisher: Archie Sinha MD [facility] Collection Date/Time: [id number] [facility] Results Received Date/Time: [id number] [facility] Reported Date/Time: [id number] Result Comment: CULT URE, URINE, ROUTINE Micro Number: [id number] Test Status: Final Specimen Source: Urine Specimen Quality: Adequate Result: Growth of mixed alvin was isolated, suggesting probable contamination. No further testing will be performed. If clinically indicated, recollection using a method to minimize contamination, with prompt transfer to Urine Culture Transport Tube, is recommended. Performed By: #### [id number] #### [facility] Default [address] [place] [address] Vital Signs Date Time Vital Sign Value Performing Clinician Facility 01-24-2023 10:00-0400 Hourly Rounding Mbanefo OJUKWU [facility] 01-24-2023 10:00-0400 Promise to Return Mbanefo [facility] 01-24-2023 09:00-0400 Hourly Rounding Mbanefo [facility] 01-24-2023 09:00-0400 Promise to Return Mbanefo [facility] 01-24-2023 08:29-0400 Diastolic blood pressure 73 mm[Hg] Mbanefo [facility] 01-24-2023 08:29-0400 Systolic blood pressure 157 mm[Hg] Mbanefo [facility] 01-24-2023 08:27-0400 Blood Pressure Location Mbanefo [facility] 01-24-2023 08:27-0400 Body temperature 97.7 [degF] Mbanefo [facility] 01-24-2023 08:27-0400 Diastolic blood pressure 73 mm[Hg] Mbanefo [facility] 01-24-2023 08:27-0400 Heart rate 82 /min [facility]banefo [facility] 01-24-2023 08:27-0400 Respiratory rate 16 /min Mbanefo [facility] 01-24-2023 08:27-0400 Systolic blood pressure 157 mm[Hg] Mbanefo [facility] 01-24-2023 08:00-0400 Hourly Rounding Mbanefo [facility] 01-24-2023 08:00-0400 Promise to Return Mbanefo [facility] 01-24-2023 00:05-0400 Blood Pressure Location Mbanefo [facility] 01-24-2023 00:05-0400 Body temperature 97.7 [degF] [facility]efo [facility] 01-24-2023 00:05-0400 Diastolic blood pressure 76 mm[Hg] [facility]banefo [facility] 01-24-2023 00:05-0400 Heart rate 83 /min Mbanefo [facility] 01-24-2023 00:05-0400 Mean blood pressure 99 mm[Hg] Mbanefo [facility] 01-24-2023 00:05-0400 SaO2% (BldA) [Mass fraction] 97 % Mbanefo [facility] 01-24-2023 00:05-0400 Systolic blood pressure 144 mm[Hg] Mbanefo [facility] 01-23-2023 19:36-0400 Heart rate 81 /min Mbanefo [facility] 01-23-2023 19:36-0400 SaO2% (BldA) [Mass fraction] 96 % Mbanefo [facility] 01-23-2023 19:36-0400 Body temperature 97.34 [degF] Mbanefo [facility] 01-23-2023 19:34-0400 Mean blood pressure 83 mm[Hg] Mbanefo [facility] 01-23-2023 13:00-0400 Body temperature 98.06 [degF] Mbanefo [facility] 01-23-2023 06:55-0400 Blood Pressure Location Mbanefo [facility] 01-23-2023 06:55-0400 Mean blood pressure 89 mm[Hg] Mbanefo [facility] 01-23-2023 06:55-0400 Respiratory rate 16 /min Mbanefo [facility] 01-23-2023 06:55-0400 SaO2% (BldA) [Mass fraction] 93 % Mbanefo [facility] 01-22-2023 23:00-0400 Body temperature 97.88 [degF] Mbanefo [facility] 01-22-2023 23:00-0400 Mean blood pressure 82 mm[Hg] Mbanefo [facility] 01-22-2023 23:00-0400 Respiratory rate 18 /min Mbanefo [facility] 01-22-2023 18:37-0400 Body temperature 97.52 [degF] Mbanefo [facility] 01-22-2023 18:36-0400 Mean blood pressure 81 mm[Hg] Mbanefo [facility] 01-22-2023 16:09-0400 Mean blood pressure 81 mm[Hg] Mbanefo [facility] 01-22-2023 16:07-0400 Body temperature 97.52 [degF] Mbanefo [facility] 01-22-2023 04:50-0400 Heart rate 77 /min Mbanefo [facility] 01-21-2023 21:09-0400 Heart rate 85 /min Mbanefo [facility] 01-21-2023 15:11-0400 Heart rate 78 /min Mbanefo [facility] 12-20-2022 09:37-0400 Hourly Rounding Maycol CAGLE [facility] 12-20-2022 09:37-0400 Promise to Return Maycolyasmine ARRIOLASLIN [facility] 12-20-2022 09:06-0400 Heart rate 65 /min Maycolyasmine ARRIOLASLIN [facility] 12-20-2022 09:06-0400 Respiratory rate 20 /min Maycolyasmine ARRIOLASLIN [facility] 12-20-2022 09:06-0400 SaO2% (BldA) [Mass fraction] 92 % Maycol TSERING [facility] 12-20-2022 08:56-0400 Heart rate 61 /min Maycol TSERING [facility] 12-20-2022 08:56-0400 Respiratory rate 20 /min Maycol TSERING [facility] 12-20-2022 08:56-0400 SaO2% (BldA) [Mass fraction] 92 % Maycol TSERING [facility] 12-20-2022 08:51-0400 Hourly Rounding Maycol TSERING [facility] 12-20-2022 08:51-0400 Promise to Return Maycol TSERING [facility] 12-20-2022 08:50-0400 Hourly Rounding Maycolyasmine ARRIOLASLIN [facility] 12-20-2022 08:31-0400 Promise to Return Maycol TSERING [facility] 12-20-2022 07:29-0400 Heart rate 60 /min Maycol TSERING [facility] 12-20-2022 07:29-0400 SaO2% (BldA) [Mass fraction] 93 % Maycol TSERING [facility] 12-20-2022 07:28-0400 Body temperature 98.06 [degF] Maycol TSERING [facility] 12-20-2022 07:28-0400 Diastolic blood pressure 69 mm[Hg] Maycol TSERING [facility] 12-20-2022 07:28-0400 Mean blood pressure 94 mm[Hg] Maycol TSERING [facility] 12-20-2022 07:28-0400 Systolic blood pressure 143 mm[Hg] Maycol TSERING [facility] 12-20-2022 03:25-0400 Respiratory rate 16 /min Maycol TSERING [facility] 12-20-2022 00:15-0400 Body temperature 97.7 [degF] Maycol TSERING [facility] 12-20-2022 00:15-0400 Diastolic blood pressure 56 mm[Hg] Maycol TSERING [facility] 12-20-2022 00:15-0400 Systolic blood pressure 135 mm[Hg] Maycol TSERING [facility] 12-19-2022 19:28-0400 Body temperature 98.42 [degF] Maycol TSERING [facility] 12-19-2022 19:27-0400 Diastolic blood pressure 69 mm[Hg] Maycol TSERING [facility] 12-19-2022 19:27-0400 Mean blood pressure 90 mm[Hg] Maycol TSERING [facility] 12-19-2022 19:27-0400 Systolic blood pressure 134 mm[Hg] Maycol TSERING [facility] 12-19-2022 16:26-0400 gluc 111 mg/dL Maycol TSERING [facility] 12-19-2022 16:06-0400 Mean blood pressure 95 mm[Hg] Maycol TSERING [facility] 12-19-2022 16:00-0400 Body temperature 98.06 [degF] Maycol TSERING [facility] 12-19-2022 11:58-0400 gluc 201 mg/dL Maycol TSERING [facility] 12-19-2022 08:18-0400 gluc 93 mg/dL Maycol TSERING [facility] 12-19-2022 08:00-0400 Body temperature 98.6 [degF] Maycol TSERING [facility] 12-18-2022 05:46-0400 Blood Pressure Location Maycol TSERING [facility] 12-18-2022 05:46-0400 Heart rate 67 /min Maycol TSERING [facility] 12-18-2022 05:00-0400 Body temperature 98.42 [degF] Maycol TSERING [facility] 12-18-2022 05:00-0400 Mean blood pressure 78 mm[Hg] Maycol TSERING [facility] 12-18-2022 05:00-0400 Respiratory rate 20 /min Maycol TSERING [facility] 12-18-2022 04:00-0400 Mean blood pressure 77 mm[Hg] Maycol TSERING [facility] 12-18-2022 04:00-0400 Respiratory rate 21 /min Maycol TSERING [facility] 12-18-2022 03:00-0400 Mean blood pressure 75 mm[Hg] Maycol TSERING [facility] 12-18-2022 03:00-0400 Respiratory rate 22 /min Maycol TSERING [facility] 12-18-2022 00:09-0400 Heart rate 85 /min Maycol TSERING [facility] 12-17-2022 23:54-0400 Heart rate 86 /min Maycol TSERING [facility] 12-02-2022 14:00-0400 SaO2% (BldA) [Mass fraction] 93 % Maycol TSERING [facility] 12-02-2022 13:00-0400 Hourly Rounding Maycol TSERING [facility] 12-02-2022 13:00-0400 Promise to Return Maycol TSERING [facility] 12-02-2022 12:58-0400 Heart rate 85 /min Maycol TSERING [facility] 12-02-2022 12:58-0400 SaO2% (BldA) [Mass fraction] 88 % Maycol TSERING [facility] 12-02-2022 12:58-0400 Body temperature 97.7 [degF] Maycol TSERING [facility] 12-02-2022 12:58-0400 Diastolic blood pressure 75 mm[Hg] Maycol TSERING [facility] 12-02-2022 12:58-0400 Mean blood pressure 102 mm[Hg] Maycol TSERING [facility] 12-02-2022 12:58-0400 Systolic blood pressure 157 mm[Hg] Maycol TSERING [facility] 12-02-2022 12:10-0400 Hourly Rounding Maycol TSERING [facility] 12-02-2022 12:10-0400 Promise to Return Maycol TSERING [facility] 12-02-2022 11:30-0400 Hourly Rounding Maycol TSERING [facility] 12-02-2022 11:30-0400 Promise to Return Maycol TSERING [facility] 12-02-2022 08:00-0400 Blood Pressure Location Maycol TSERING [facility] 12-02-2022 08:00-0400 Diastolic blood pressure 79 mm[Hg] Maycol TSERING [facility] 12-02-2022 08:00-0400 gluc 127 mg/dL Maycol TSERING [facility] 12-02-2022 08:00-0400 Heart rate 76 /min Maycol TSERING [facility] 12-02-2022 08:00-0400 Respiratory rate 20 /min Maycol TSERING [facility] 12-02-2022 08:00-0400 Systolic blood pressure 141 mm[Hg] Maycol TSERING [facility] 12-02-2022 07:46-0400 Heart rate 66 /min Maycol TSERING [facility] 12-02-2022 07:46-0400 Respiratory rate 18 /min Maycol TSERING [facility] 12-02-2022 07:40-0400 Respiratory rate 18 /min Maycol TSERING [facility] 12-01-2022 23:32-0400 Body temperature 97.16 [degF] Maycol TSERING [facility] 12-01-2022 23:32-0400 Diastolic blood pressure 77 mm[Hg] Maycol TSERING [facility] 12-01-2022 23:32-0400 Mean blood pressure 101 mm[Hg] Maycol TSERING [facility] 12-01-2022 23:32-0400 Systolic blood pressure 130 mm[Hg] Maycol TSERING [facility] 12-01-2022 20:01-0400 Body temperature 97.16 [degF] Maycol TSERING [facility] 12-01-2022 20:01-0400 Mean blood pressure 101 mm[Hg] Maycol TSERING [facility] 12-01-2022 12:07-0400 Body temperature 97.52 [degF] Maycol TSERING [facility] 12-01-2022 07:30-0400 Body temperature 96.98 [degF] Maycol TSERING [facility] 12-01-2022 06:00-0400 gluc 110 mg/dL Maycol TSERING [facility] 11-30-2022 23:32-0400 FIO2 30 % Maycol TSERING [facility] 11-30-2022 20:04-0400 Mean blood pressure 98 mm[Hg] Maycol TSERING [facility] 11-30-2022 04:38-0400 Mean blood pressure 91 mm[Hg] Maycol TSERING [facility] 11-29-2022 20:16-0400 FIO2 30 % Maycol TSERING [facility] 11-29-2022 19:00-0400 Blood Pressure Location Maycolyasmine ARRIOLASLIN [facility] 11-29-2022 08:10-0400 FIO2 30 % Maycol CAGLE [facility] 11-29-2022 04:08-0400 gluc 107 mg/dL Maycol CAGLE [facility] 11-29-2022 04:08-0400 Mean blood pressure 80 mm[Hg] Maycol CAGLE [facility] 11-29-2022 00:16-0400 Heart rate 48 /min Maycol CAGLE [facility] 11-28-2022 22:55-0400 Respiratory rate 19 /min Maycol CAGLE [facility] 11-28-2022 21:45-0400 Respiratory rate 18 /min Maycol CAGLE [facility] 11-28-2022 20:45-0400 Respiratory rate 22 /min Maycol CAGLE [facility] 11-28-2022 18:55-0400 SaO2% (BldA) [Mass fraction] 95.4 % Maycol CAGLE [facility] Resp Auto SS 11-28-2022 17:13-0400 Heart rate 59 /min Maycol CAGLE [facility] 09-07-2022 01:10-0400 Diastolic blood pressure 53 mm[Hg] [facility] 09-07-2022 01:10-0400 Heart rate 70 /min [facility] 09-07-2022 01:10-0400 SaO2% (BldA) [Mass fraction] 96 % [facility] 09-07-2022 01:10-0400 Systolic blood pressure 135 mm[Hg] [facility] Encounters Encounter Date Encounter Type Care Provider Facility Start: 02-01-2023 ambulatory Robin Garcia acility:[facility] Start: 01-21-2023 End: 01-24-2023 Evaluation and management of inpatient New Johnson Facility:[facility] Start: 01-21-2023 End: 01-24-2023 Evaluation and management of inpatient Steve [facility] Start: 01-15-2023 End: 01-16-2023 ambulatory Donta NOONAN Facility:CD:[id number] Start: 01-15-2023 End: 01-15-2023 Off-Site [facility] Start: 12-22-2022 End: 12-23-2022 ambulatory Donta SHAISTA Facility:[id number] Start: 12-22-2022 End: 12-22-2022 Off-Site [facility] Start: 12-18-2022 End: 12-20-2022 Evaluation and management of inpatient Maycol CAGLE Facility:[facility] Start: 12-17-2022 End: 12-20-2022 Evaluation and management of inpatient Maycol CAGLE [facility] Start: 12-14-2022 End: 01-16-2023 ambulatory Donta [place] Facility:CD:[id number] Start: 12-14-2022 End: 01-16-2023 In-Between Visit [facility] Start: 12-11-2022 ambulatory Donta SHAISTA Facilit y:LUISA Rodas Start: 12-03-2022 End: 12-03-2022 Off-Site [facility] Start: 12-03-2022 End: 12-04-2022 ambulatory Donta NOONAN Facility:CD:[id number] Start: 12-02-2022 End: 01-16-2023 ambulatory Donta NOONAN Facility:[facility] Start: 11-30-2022 ambulatory Facility:[id number] Start: 11-30-2022 ambulatory Facility:[id number] Start: 11-29-2022 ambulatory Facility:[id number] Start: 11-29-2022 End: 12-02-2022 Evaluation and management of inpatient Maycol CAGLE Facility:[facility] Start: 11-28-2022 End: 12-02-2022 Evaluation and management of inpatient Maycol CAGLE [facility] Start: 11-26-2022 End: 11-27-2022 ambulatory Bienvenido Barroso Facility:[facility] Start: 11-26-2022 End: 11-26-2022 Patient encounter procedure Bienvenido Barroso [facility] Start: 09-26-2022 End: 09-28-2022 ambulatory UNKNOWN PROVIDER Facility:[facility] Start: 09-07-2022 End: 09-08-2022 ambulatory UNKNOWN PROVIDER Facility:[facility] Start: 2022 End: 2022 ambulatory [facility] Emergenc y Triage, Treat and Transport Start: 2022 End: 2022 Emergency department patient visit [facility] Emergency Triage, Treat and Transport Comment on [...] Visi t (G0439) Annual Wellness Visit (G0439) [facility] Start: 05-14-2018 Pneumococcal vaccination Pneum ococcal Vaccine(s) (65+ yrs) (2 - PPSV23 if available, else PCV20) [facility] Start: 1994 Shingles (RZV) Vacci ne (1 of 2) Shingles (RZV) Vaccine (1 of 2) [facility] Start: 1962 Hepatitis C screening Hepatitis C An tibody [facility] Start: 1962 Tetanus + diphtheria + acellular pertussis vaccine (product) Tdap Booster [facility] Immunizations Immunization Date Immunization Notes Care Provider Fa [facility] 03-12-2022 SARS-CoV-2 (COVID-19 ) mRNAMUL.[id number] Donta NOONAN [facility] 03-17-2021 Influenza, injectabl e, high-dose seasonal, quadrivalent, 0.7 mL, preservative free (MUZ=084) [facility] 07-15-2020 Pfizer (12+ yrs) SARS-COV-2 (COVID-19) vaccine, mRNA, spike protein, LNP, pres. free, 30 mcg/0.3mL dose (USE=175) [facility] 06-26-2020 Pfizer (12+ yrs) SARS-COV-2 (COVID-19) vaccine, mRNA, spike protein, LNP, pres. free, 30 mcg/0.3mL dose (ARP=478) [facility] 06-23-2019 influenza, high dose seasonal, preservative-free [facility] 05-14-2017 influenza, high dose seasonal, preservative-free [facility] 05-14-2017 pneumococcal conjuga te vaccine, 13 valent Et3 [facility] 04-04-2014 influenza, injectabl e, madin cee canine kidney, preservative free Et3 [facility] NEGATED: Highlighted row has not occurred!06-15-2014 pneumococcal polysaccharide vaccine, 23 valent Bienvenido Barroso [facility] Comment on above: Result Note: pt had vaccine last year per Payers Date Payer Category Payer Self-pay 2022 Unknown [id number] 2022 Medicare [facility] [id number] 2022-Present [address] [place] [address] Medicare [id number] 2022 Unknown [id number] 1945 Unknown [id number] 2.16.840.1.412100.3.579.2.732 1945 Unknown [id number] 2.16.840.1.442265.3.579.2.732 1945 Unknown [id number] 2.16.840.1.459477.3.579.2.356 1945 Unknown [id number] 2.16.840.1.182918.3.579.2.356 1945 Unknown [id number] 2.16.840.1.199208.3.579.2.356 1945 Unknown [id number] 2.16.840.1.986459.3.579.2.727 1945 Unknown [id number] 2.16.840.1.659042.3.579.2.727 1944 Unknown [id number] 2.16.840.1.070156.3.579.2.727 1944 Unknown [id number] 2.16.840.1.868428.3.579.2.727 1944 Unknown [id number] 2.16.840.1.066050.3.579.2.72 1944 Unknown [id number] 2.16.840.1.689568.3.579.2.727 1944 Unknown [id number] 2.16.840.1.829294.3.579.2.727 1944 Unknown [id number] 2.16.840.1.174274.3.579.2.727 1944 Unknown [id number] 2.16.840.1.156538.3.579.2.72 1944 Unknown [id number] 2.16.840.1.930732.3.579.2.72 1944 Unknown [id number] 2.16.840.1.278741.3.579.2.72 1945 Unknown [id number] 2.16.840.1.521810.3.579.2.727 Social History Date Type Detail Facility Tobacco smoking status NDIS Tobacco smoking consumption unknown [facility] Start: 1945 Sex Assigned At [facility] Start: 04-24-2021 Tobacco smoking status Ex-smoker (finding) [facility] Sex Assigned At Male [facility] Functional Status Date Assessment Result Facility 01-21-2023 Functional Status No [facility] 01-21-2023 Functional Status [facility] 12-18-2022 Functional Status N/A [facility] 12-17-2022 Functional Status [facility] 11-29-2022 Functional Status N/A [facility] 11-28-2022 Functional Status [facility] Clinical Notes 09-07-2022 to 01-24-2023 Note Date & Type Note Facility 01-24-2023 Evaluation + Plan note Extrac gi from: Title:Discharge Note Author:New Johnson DO Date:01/24/23 Discharge To, Anticipated II - Senior Care Unit Discharged to - Home independently Transported [...] When Contact Information Dharmesh POTTS, Bienvenido Chavira, [facility] [place] [address]- Additional Instructions: Dementia, Lbgx-uk-[id number] Extracted from: Title:APSO Note Author:New Johnson DO Gerry e:01/23/23 1. Generalized weakness (R53 .1: Weakness) IV fluids, trend BUN and creatinine PT/OT Currently awaiting pre-CERT for placement 2. Alzheimers disease (G30.9: Alzheimer's disease, unspecified) Continue Seroquel 3. CAD in t[place] artery (I25.10: Atherosclerotic heart disease of [place] coronary artery without angina pectoris) Continue aspirin [...] Ordered: Initial Hospital Care/Day Moderate 55 Minutes 28121 Sbsq Hospital Care/Day Straight Fwd 25 Minutes [id number] 2. Alzheimers disease (G30.9: Alzheimer's disease, unspecified) Continue Seroquel 3. CAD in t[place] artery (I25.10: Atherosclerotic heart disease of [place] coronary artery without angina pectoris) Continue aspirin [...] (G30.9: Alzheimer's disease, unspecified) 3. CAD in [place] artery (I25.10: Atherosclerotic heart disease of [place] coronary artery without angina pectoris) 4. COPD [...] Ordered: Initial Hospital Care/Day Moderate 55 Minutes 97245 2. Alzheimers disease (G30.9: Alzheimer's disease, unspecified) Continue Seroquel 3. CAD in [place] artery (I25.10: Atherosclerotic heart disease of [place] coronary artery without angina pectoris) Continue aspirin [...] improving gait and building on physical strength. [facility]09-03-2023 [facility]:Result Comment: Electronically Signed By: New Johnson DO.candice\Date and Time Signed: 01/24/23 09:57 [id number] Hospital Discharge instructions Patient Education 01/24/2023 09:54:03 Dementia, Ofnl-nz-Gyhi Dementia Dementia is a condition that affects [...] Follow these instructions at home: Medicines Take juqz-ifr-kiniwyi and prescription medicines only as told by [...] find more information Alzheimer's Association: www.alz.org National [place] on Aging: www.susie.nih.gov/alzheimers World Health Organization: www.who.int [...] room or: Call your local emergency services (109 in the [place] Call the National Suicide Prevention Lifeline at or 470 in the [place] This is open 24 hours a day. Text the Crisis Text Line at 306436. Summary Dementia often affects memory and thinking. [...] provider. Document Revised: 12/03/2021 Document Reviewed: 09/23/2020 [employer] Patient Education 2022 [employer]. Follow Up Care 01/21/2023 15:06:04 With:Dharmesh POTTS, SHEA Castillo Address: [address] [place] [address]- When: Unknown [facility]08-31-2023 NoteFishWestern Maryland Hospital CenterComment on above:Result Comment: Electronically Signed By: New Johnson DO\Toshabr\Date and Time Signed: 01/21/23 17:53 [id number] Evaluation + Plan note Extracted from: Title:Discharge Note Author:MICHAEL POTTS, Jamir Gerry e:12/20/22 stable Discharge To, Anticipated II - Senior Care Unit Discharged to - [facility] SNF Discharge Diet(s): Calorie Controlled- 1800 Calorie Diet (12/20/22 09:46:00) Prescriptions alprazolam 0.5 mg Tab, 0.5 mg= 1 tab(s), Oral, Daily, PRN aspirin 81 mg Oral EC Tab, 81 mg= 1 tab(s), Oral, Daily Augmentin 875 mg oral tablet, 1 tab(s), Oral, q12hr ergocalciferol 50,000 intl units Cap, 95455 International_Unit= 1 cap(s), Oral, q7day furosemide 40 [...] BID With When Contact Information Bienvenido Barroso [address] [place] [id number] Business (1) Additional Instructions: Call for followup [...] ultimately benefit being only slightly on the yolk spray 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 Coronary artery disease (I25.10: Atherosclerotic heart disease of [place] coronary artery without angina pectoris) Patient had [...] he is actually on antihypertensives at the [facility] care facility. On a prior hospitalization he [...] recent hospitalization has been titrated at the [facility] care facility. He was recently placed on Xanax, discontinue that at this time. Awaiting verification of meds from the [facility] 15. Encounter for deep vein thrombosis (DVT) [...] patient's RN it was advised that the longterm was planning on sending a copy of [...] Tests Pending * Legionella Antigen Urine 12/18/22 [facility]07-30-2023 NoteCRM entered the room to discuss dc planning. PCP, DME and insurance discussed. Patient is alert andinvolved in plan of care. Contact information given and whiteboard updated. Pt will dc to [facility] room 17 today. CRM to follow.[facility] HospitalComment on above:Result Comment: Electronically Signed By: Natalie Grant.br\Date and Time Signed: 12/20/22 11:52 [id number] [facility] HospitalComment on above: Result Comment: Electronically Signed By: Jamir MCKINNEY MD\.br\Date and Time Signed: 12/20/22 10:[id number] Hospital Discharge instructions Patient Education 12/20/2022 09:48:09 [...] a long-term care facility, such as a longterm. Having your kidneys filtered through hemodialysis in [...] hard liquor (44 mL). General instructions Take dudo-jpv-pliaphg and prescription medicines as told by your [...] are not available, use an alcohol-based hand contact center engineer. ?Make sure your health care providers wash [...] and water or with alcohol- based hand contact center engineer before and after caring for sick people. [...] bacteria common in health care settings. Take mczl-tpz-fxctogn and prescription medicines as told by your [...] provider. Document Revised: 05/31/2022 Document Reviewed: 05/31/2022 [employer] Patient Education 2022 [employer] Follow Up Care 12/17/2022 23:50:19 With:Bienvenido Barroso Address: [place] [address] [facility] (1) When: Unknown Comments:Call for followup appointment [facility]07-28-2023 [facility]:Result Comment: Electronically Signed By: Maycol CAGLE DO\.br\Date and Time Signed: 12/18/22 06:27 [id number] [facility] CenterComment on above:Result Comment: Electronically Signed By: Lizeth Cedeno MD\.br\Date and Time Signed: 12/02/22 12:28 [id number] Evaluation + Plan noteExtracted from: Title:Discharge Note Author:Lizeth Cedeno MD ate:12/02/22 Stable Discharge To, Anticipated II - Senior Care Unit Discharged to - Home with family care Transported by, Anticipated - Family Discharge Diet(s): Other: Limit fluids to 1800 ml/day (12/02/22 12:23:00) Prescriptions aspirin 81 mg Oral EC Tab, 81 mg= 1 tab(s), Oral, Daily ergocalciferol 50,000 intl units Cap, 29869 International_Unit= 1 cap(s), Oral, q7day furosemide 40 [...] Bedtime With When Contact Information Joanie Jiménez [facility] [address] [place] [address]- Business (1) Additional Instructions: HFpEF Dave Chichester [address] [place] [address]- Business (1) Additional Instructions: Cog impariment, Alz[employer]emer's Bienvenido Barroso In [address] [place] [address]- Business (1) Additional Instructions: Extracted from: Title:UPDATE [...] of CAD and previous coronary interventions in [place] with no indication of recurrent CAD, would [...] Extracted from: Title:SOAP Note: Simple Author:Marcus POTTS, [facility] Date:11/29/22 Impression and Plan CONSULT DICTATED [...] as able, brad varela. -check echo Ordered: [facility] Care/Day High 50 Minutes 29518 2. Acute on chronic diastolic heart failure (I50.33: Acute on chronic diastolic (congestive) heart failure) c/w spironolactone and lasix IV 40mg qd -strict I/Os and daily weight - last echo was done 2014 with EF of 50%. will recheck this visit Ordered: [facility] Care/Day High 50 Minutes 78155 3. COPD without exacerbation (J44.9: Chronic obstructive pulmonary disease, unspecified) Ordered: [facility] Care/Day High 50 Minutes 48332 4. Weakness (R53.1: Weakness) -pt/ot Ordered: [facility] Care/Day High 50 Minutes 36664 5. Sinus bradycardia (R00.1: Bradycardia, unspecified) baseline. last EKG similar. -pt had decreased HR overnight so BB was held. -continue to monitor on tele Ordered: [facility] Care/Day High 50 Minutes 08055 6. Coronary artery disease (I25.10: Atherosclerotic heart disease of [place] coronary artery without angina pectoris) -c/w ASA Ordered: [facility] Care/Day High 50 Minutes 38143 7. Obstructive sleep apnea (G47.33: Obstructive sleep apnea (adult) (pediatric)) -CPAP qHS Ordered: [facility] Care/Day High 50 Minutes 39849 8. Pulmonary hypertension (I27.20: Pulmonary hypertension, unspecified) c/w spironolactone 50mg -lasix 40 mg iv qd -strict I/Os daily weights -check echo Ordered: [facility] Care/Day High 50 Minutes 99485 9. Abdominal pain (R10.9: Unspecified abdominal pain) resolved no complaints this morning Ordered: [facility] Care/Day High 50 Minutes 50444 10. Hypertension (I10: Essential (primary) hypertension) c/w spironolactone Ordered: [facility] Care/Day High 50 Minutes 00890 11. Diabetes (E11.9: Type 2 diabetes mellitus without complications) BGT qACHS -c/w glimepiride Ordered: [facility] Care/Day High 50 Minutes 80294 12. Hyperlipidemia (E78.5: Hyperlipidemia, unspecified) -hold statin due to elevated CK Ordered: [facility] Care/Day High 50 Minutes 66909 13. Chronic anemia (D64.9: Anemia, unspecified) monitor Ordered: [facility] Care/Day High 50 Minutes 91029 14. BPH (benign prostatic hyperplasia) (N40.0: Benign prostatic hyperplasia without lower urinary tract symptoms) c/w tamsulosin Ordered: [facility] Care/Day High 50 Minutes 62723 15. Dementia (F03.90: Unspecified dementia, unspecified severity, without behavioral disturbance, psychotic disturbance, mood disturbance, and anxiety) -c/w seroquel 25mg qHS Ordered: [facility] Care/Day High 50 Minutes 20159 16. Encounter for deep vein thrombosis (DVT) prophylaxis (Z29.9: Encounter for prophylactic measures, unspecified) Ordered: [facility] Care/Day High 50 Minutes 80740 17. Elevated CK (R74.8: Abnormal levels of other serum enzymes) -CK 1000 this morning. will monitor and hold statin - will not give fluids due to current diuresis Ordered: [facility] Care/Day High 50 Minutes 71132 COPD with acute exacerbation (J44.1: Chronic obstructive [...] artery disease (I25.10: Atherosclerotic heart disease of [place] coronary artery without angina pectoris) Continue aspirin, [...] Scheduled Provider:Donta NOONAN MD Location:Extended Care Appointment Type:[facility]07-10-2023 NoteOT [facility] six clicks score 15/24 = SNF. Patient requires assist w/ all transfers and self care at this time. Inpatient OT services to follow daily to progress w/ functional skills.[facility]07-09-2023 NotePT Evaluation completed with an [facility] score of 16/24. Pt requires Min A for bed mobility and min/Mod A to stand. Pt was able to take two sidesteps. Will follow daily, but SNF recommended [facility] NoteCommunity Memorial HospitalComment on above:Result Comment: Electronically Signed By: Maycol CAGLE DO\.br\Date and Time Signed: 11/29/22 01:33 [id number] Hospital Discharge instructions Follow Up Care 11/28/2022 17:10:04 With:Joanie Jiménez Address: [facility] [address], [address] [place] [address]- Business (1) When: Unknown Comments:HFpEF With:Dave Cruz Address: [address] [place] [address]- Business (1) When: Unknown Comments:Cog impariment, Alzhiemer's With:Bienvenido Barroso Address: [address] [place] [phone] Business (1) When: Unknown [facility]05-20-2023 [facility] CenterComment on above:Result Comment: Electronically Signed By: Adeline COLEMAN\.br\Date and Time Signed: 10/10/22 17:53 EDT\.br\Electronically Co- Signed By: Ganesh Minaya MD\.br\Date and Time Co-Signed: 10/10/22 18:51 EDT 09-27-2022 [facility] HospitalComment on above:Result Comment: Electronically Signed By: Adeline COLEMAN\.br\Date and Time Signed: 09/26/22 21:20 EDT\.br\Electronically Co-Signed By: Ganesh Minaya MD\.br\Date and Time Co-Signed: 09/27/22 08:00 [id number] History of Present illness Narrative* Marcelino Echavarria MD - 09/07/2022 1:12 AM EDT Images from the original note were not included. EMERGENCY TRIAGE, TREAT AND TRANSPORT (ET3) DOCUMENTATION OF TELEHEALTH VISIT Date / Time: 09/06/20222146 Name: Clyde Humphrey : 1945 SSN: [id number] EMS Agency: [facility] [x] Verbal consent obtained [] [...] note No data available for this section [facility], initial encounter- [facility] No data available for this section [facility] No data available for this section [facility] Summary Purpose Family History No Family History [...] section and content) DATE CREATED AUTHOR 06/26/2021 [facility] dical Specialist DATE CREATED AUTHOR AUTHOR'S ORGANIZ ATION 09/30/2022 [facility] DATE CREATED AUTHOR AUTHOR'S ORGANIZ ATION 12/05/2022 [facility] DATE CREATED AUTHOR AUTHOR'S ORGANIZ ATION 03/26/2023 [facility] DATE CREATED AUTHOR AUTHOR'S ORGANIZ ATION 05/04/2023 [facility] Reason for Visit (unrecogniz ed section and content) Reason Comments Fall Patient Care team informatio n (unrecognized section and content) Personnel Name: Bienvenido Barroso MD Address: Address: [address] [place] [address] Name: Andrew Rodriguez Personnel Name: Bienevnido Barroso MD Address: Address: [address] [place] [address] Name: Andrew Rodriguez Personnel Name: Bienvenido Barroso MD Address: Address: [address] [place] [address] Name: Andrew Rodriguez Personnel Name: Bienvenido Barroso MD Address: Address: [address] [place] [address] Name: Andrew Rodriguez Personnel Name: Bienvenido Barroso MD Address: Address: [address] [place] [address] Name: Andrew Rodriguez Personnel Name: Bienvenido Barroso MD Address: Address: [address] [place] [address] Name: Andrew Rodriguez Personnel Name: Bienvenido Barroso MD Address: Address: [address] [place] [address] Name: Andrew Rodriguez Personnel Name: Bienvenido Barroso MD Address: Address: [address] [place] [address] Name: Luis Gil LPN Name: Andrew Rodriguez [...] BE BASED ON THE PRIMARY CLINICAL RECORDS. [employer] [facility]. provides no warranty or guarantee of the accuracy or completeness of information in this document.
[2023-08-04 08:11] LABS: Bilirubin Urine NEGATIVE (NEGATIVE); Blood Urine NEGATIVE (NEGATIVE); Clarity Urine CLEAR (CLEAR); Color Urine LT. YELLOW (YELLOW); Glucose Urine UA NEGATIVE (NEGATIVE); Ketones Urine NEGATIVE (NEGATIVE); Leukocyte Esterase Urine NEGATIVE (NEGATIVE); Nitrite Urine NEGATIVE (NEGATIVE); Protein Urine NEGATIVE (NEG/TRACE); Urobilinogen Urine 0.2 EU/dL (0.2-1.0); pH Urine 5.5 (5.0-9.0)
[2023-08-04 08:12] LABS: Urine Microscopic Indicated NO
== END 2023-08-03 06:01 | disposition home or self-care (01) ==
LOC: LAB 06:00
PROVIDERS: PCP Family Medicine; Visit Provider Family Medicine
DX: N39.0 Urinary tract infection, site not specified (principal)
CPT/HCPCS: 81003

== ENCOUNTER 2023-08-26 14:14 | Outpatient (REF) | payer OTHER, SELFPAY ==
--- OUTSIDE RECORDS SUMMARY | 2023-08-27 03:00 | XMS_ITS | CCD ---
Author Organization [facility] Care Team Providers Care Principal Associate Name Role Phone Unavailable Primary Care [...] Refills(s) 0 Start Date: 06/16/14 Status: Ordered [id number] 200 actuat albuterol 0.09 mg/actuat metered dose inhaler (4 sources) beta2-Adrenergic Agonist Start: 04-27-2021 take 2 puff(s) by inhalation four times daily for wheezing Pro-Air HFA CFC free 90 mcg/inh MDI 2 puff(s), Inhalation, QID for wheezing, 8.5 gram, Refill(s) 0, [facility], 167.6, cm, 04/24/21 18:14:00 EST, Height/Length [...] Daily, # 30 tab(s), Refills(s) 0, Pharmacy: [facility], 167, cm, 11/28/22 17:20:00 EDT, Height/Length [...] Daily, # 90 tab(s), Refills(s) 4, Pharmacy: [facility], 160, cm, 12/18/22 0:04:00 EDT, Height/Length [...] Daily, # 90 tab(s), Refills(s) 4, Pharmacy: [facility], 160, cm, 12/18/22 0:04:00 EDT, Height/Length [...] Daily, # 90 tab(s), Refills(s) 1, Pharmacy: [facility], 160, cm, 12/18/22 0:04:00 EDT, Height/Length Dosing, 94, kg, 12/18/22 0:04:00 EDT, Weight Dosing Start Date: 01/15/23 Status: Ordered Start: 12-02-2022 take 1 tablet by ruperto th once daily furosemide 40 mg Tab 40 mg = 1 tab(s), Oral, Daily, # 30 tab(s), Refills(s) 0, Pharmacy: [facility], 167, cm, 11/28/22 17:20:00 EDT, Height/Length Dosing, 99.8, kg, 11/28/22 17:20:00 EDT, Weight Dosing Start Date: 12/02/22 Status: Ordered Start: 06-13-2013 take 1 tablet by ruperto th once daily furosemide 40 mg Tab 40 [...] day, # 30 tab(s), Refills(s) 0, Pharmacy: [facility], 167, cm, 09/26/22 10:09:00 EDT, Height/Length [...] qHS, # 210 tab(s), Refills(s) 1, Pharmacy: [facility], 160, cm, 12/18/22 0:04:00 EDT, Height/Length Dosing, 94, kg, 12/18/22 0:04:00 EDT, Weight Dosing Start Date: 01/15/23 Status: Ordered Start: 12-14-2022 quetiapine 25 mg Tab See Instructions, 25 mg qAM- 75 mg q1600 - 75mg qHS, Refills(s) 0 Start Date: 12/14/22 Status: Ordered Start: 12-02-2022 take 1 tablet by [facility] at bedtime quetiapine 50 mg oral tablet 50 mg = 1 tab(s), Oral, Bedtime, # 30 tab(s), Refills(s) 0, Pharmacy: [facility], 167, cm, 11/28/22 17:20:00 EDT, Height/Length Dosing, 99.8, kg, 11/28/22 17:20:00 EDT, Weight Dosing Start Date: 12/02/22 Status: Ordered Start: 05-31-2021 take 1 tablet by [facility] once daily quetiapine 50 mg oral tablet 50 mg = 1 tab(s), Oral, Daily, # 30 tab(s), Refills(s) 0 Start Date: 05/31/21 Status: Ordered spironolactone 25 mg oral tablet (8 sources) Aldosterone Antagonist Start: 01-15-2023 take 1 tablet by mouth once daily spironolactone 25 mg Tab 25 mg = 1 tab(s), Oral, Daily, # 90 tab(s), Refills(s) 1, Pharmacy: [facility], 160, cm, 12/18/22 0:04:00 EDT, Height/Length Dosing, 94, kg, 12/18/22 0:04:00 EDT, Weight Dosing Start Date: 01/15/23 Status: Ordered Start: 06-16-2014 take 1 tablet by [facility] once daily spironolactone 50 mg Tab 50 [...] week(s), # 8 cap(s), Refills(s) 0, Pharmacy: [facility], 167, cm, 11/28/22 17:20:00 EDT, Height/Length [...] Completed Start: 06-16-2014 take 1 capsule by [facility] twice daily tamsulosin 0.4 mg [...] Coronary atherosclerosis; Translations: [Atherosclerotic heart disease of [place] coronary artery without angina pectoris] Onset: 11-29-2022 [...] Translations: [Vitamin D deficiency, unspecified] Onset: 12-02-2022 3 Chronic Other connective tissue disease (6 sources) [...] Insurance Correspondenceon 1 05-25-2022 Insurance Correspondence [id number]# 1.00TIFF [facility] Coding Queryon 02-17-2023 Coding Query [facility] Discharge Instructionson Discharge Instructions [id number]# 1.00CD:127 Normal [facility] Transfer Documentson 023 Transfer Documents [id number]# 1.00CD:127 Normal [facility] Discharge Note-Nursingon Discharge Note-Nursing Normal Fi [facility] Interdisciplinary Note - Santosh e Manageron 01-23-2023 Interdisciplinary Note - Visor Installer [facility] Comment on above: Result Comment: Elec tronically Signed By: Norma Garcia RN\.br\Date and Time Signed: 01/23/23 16:29 EDT Progress Note-Physicianon Progress Note-Physician Normal F [facility] Comment on above: Result Comment: Elec tronically Signed By: New Johnson DO.br\Date and Time Signed: 01/23/23 09:50 EDT Auto Diffon 01-22-2023 Basophils/100 WBC (Bld) 0.7 % Normal 0.0-2.0 [facility] Comment on above: Order Comment: Order Added by Discern Expert. Performed By: #### 2 383787, [id number], 1036131, 9197252 ####[address] [place] [address] Basophils/Leukocytes Auto (Bld) [Pure # fraction] 0.1 E9/L Normal 0.0-0.2 [facility] Comment on above: Order Comment: Order Added by Discern Expert. Performed By: #### 2 447440, 18660892, 0932280, 9220018 ####[address] [address] Eosinophils/100 WBC (Bld) 9.3 % High 0.0-8.0 [facility] Comment on above: Order Comment: Order Added by Discern Expert. Performed By: #### 2 706303, 94756783, 0089350, 3401693 ####[address] [address] Eosinophils/Leukocytes Auto (Bld) [Pure # fraction] 0.8 E9/L High 0.0-0.5 [facility] Comment on above: Order Comment: Order Added by Discern Expert. Performed By: #### 2 508915, 15724520, 1266129, 9714525 ####[address] [address] Lymphocytes/100 WBC (Bld) 17.2 % Normal 14.0-50.0 [facility] Comment on above: Order Comment: Order Added by Discern Expert. Performed By: #### 2 790129, 91101543, 4641726, 5025574 ####[address] [address] Lymphocytes/Leukocytes Auto (Bld) [Pure # fraction] 1.4 E9/L Normal 1.0-4.0 [facility] Comment on above: Order Comment: Order Added by Discern Expert. Performed By: #### 2 113241, 74509704, 2439373, 1516745 ####[address] [address] Monocytes/100 WBC (Bld) 10.0 % Normal 4.0-14.0 [facility] Comment on above: Order Comment: Order Added by Discern Expert. Performed By: #### 2 935625, 44831699, 7098017, 5585383 ####[address] [place] [address] Monocytes/Leukocytes Auto (Bld) [Pure # fraction] 0.8 E9/L Normal 0.2-1.0 [facility] Comment on above: Order Comment: Order Added by Discern Expert. Performed By: #### 2 055403, 93276296, 8541983, 8738597 ####[address] [address] Neutrophils/100 WBC (Bld) 62.8 % Normal 36.0-75.0 [facility] Comment on above: Order Comment: Order Added by Discern Expert. Performed By: #### 2 098925, 23828231, 1931508, 4632585 ####[address] [address] Neutrophils/Leukocytes Auto (Bld) [Pure # fraction] 5.2 E9/L Normal 2.0-7.5 [facility] Comment on above: Order Comment: Order Added by Bethany Expert. Performed By: #### 2 210350, 75090884, 6932809, 9025953 ####[address] [address] CBC w/ Auto Diffon Erythrocyte distribution width (RBC) [Ratio] 15.2 % High 10.9-14.2 [facility] Comment on above: Performed By: #### 2 229812, 09944476, 9422574, 9050014 ####[address] [place] [address] Hematocrit (Bld) [Volume fraction] 43.1 % Normal 37.7-49.0 [facility] Comment on above: Performed By: #### 2 601765, 66651766, 8962229, 1372732 ####[address] [address] Hemoglobin (Bld) [Mass/Vol] 14.6 g/dL Normal 13.5-17.5 [facility] Comment on above: Performed By: #### 2 676884, 80125585, 1064831, 8418417 ####[facility] [address] [place] [address] MCH (RBC) [Entitic mass] 28.1 pg Normal 27.0-34.0 [facility] Comment on above: Performed By: #### 2 598000, 01043661, 2625837, 8314855 ####[facility] [address] [place] [address] MCHC (RBC) [Mass/Vol] 33.8 g/dL Normal 31.4-36.0 [facility] Comment on above: Performed By: #### 2 602393, 84449777, 6071656, 7604684 ####[address] [address] MCV (RBC) [Entitic vol] 83.2 fL Normal 80.0-100.[address] [facility] Comment on above: Performed By: #### 2 907954, 74599212, 9512444, 8822865 ####[facility] [address] [place] [address] Platelet mean volume (Bld) [Entitic vol] 8.6 fL Normal 6.4-10.8 [facility] Comment on above: Performed By: #### 2 819681, 68835341, 5965551, 9476752 ####[address] [address] Platelets (Bld) [#/Vol] 221.0 E9/L Normal 150.0-500.0 [facility] Comment on above: Performed By: #### 2 110214, 29511521, 0622983, 7068099 ####[facility] [address] [place] [address] RBC (Bld) [#/Vol] 5.2 E12/L Normal 4.3-5.9 [facility] Comment on above: Performed By: #### 2 225012, 95049694, 7376427, 1996303 ####[facility] [address] [place] [address] WBC corrected for nucl RBC Auto (Bld) [#/Vol] 8.3 E9/L Normal 4.0-11.0 [facility] Comment on above: Performed By: #### 2 554988, 80623385, 2909932, 8536040 ####[facility] [address] [place] [address] CHEMISTRYOrdered By: Lab ROP User on 01-22-2023 Glucose [Mass/Vol] 121 mg/dL High 55 - 99 mg/dL [facility] [place] Comment on above: Result Comment: Gareth guerrero RN/ POC Device SN [id number] Invalid Interpretation Code [facility] Sub[place] POC User ID [id number] Invalid Interpretation Code [facility] [place] POC Username LATONIA MALHOTRA Invalid Interpretation Code [facility] [place] Subsection CHEMISTRYOrdered By: SYSTEM SYSTEM on [...] 56 mL/min/1.73 m2 Low >=59mL/min/ 1.73 m2 [facility] Chem S Globulin (S) [Mass/Vol] 3.6 g/dL [...] 01-22-2023 Albumin [Mass/Vol] 3.7 g/dL Normal 3.3-5.0 [facility] Comment on above: Performed By: #### 2 485885, 05226094, 5447535, 9409632 ####[facility] [address] [place] [address] Albumin/Globulin (S) [Mass conc ratio] 1.0 Low 1.1-2.2 [facility] Comment on above: Performed By: #### 2 349077, 38052007, 9466508, 6635544 ####[facility] [address] [place] [address] ALP [Catalytic activity/Vol] 47 Int._Unit/L Normal 21-98 [facility] Comment on above: Performed By: #### 2 160379, 53452923, 8654383, 1697361 ####[facility] [address] [place] [address] ALT No additional P-5'-P [Catalytic activity/Vol] 21 Int._Unit/L Normal 6-46 [facility] Comment on above: Performed By: #### 2 148941, 78075716, 9823475, 8497781 ####[facility] [address] [place] [address] Anion gap [Moles/Vol] 15 mmol/L Normal 6-16 [facility] Comment on above: Performed By: #### 2 492471, 61419054, 0649526, 8057220 ####[facility] [address] [facility] [place] [address] AST [Catalytic activity/Vol] 21 Int._Unit/L Normal 5-43 [facility] Comment on above: Performed By: #### 2 555081, 13601598, 7107455, 1183272 ####[facility] [address] [place] [address] Bilirubin [Mass/Vol] 0.8 mg/dL Normal 0.0-1.1 [place] Comment on above: Performed By: #### 2 007944, 98835079, 2084172, 5649278 ####[facility] [address] [place] [address] Calcium [Mass/Vol] 9.6 mg/dL Normal 8.9-11.1 [facility] Comment on above: Performed By: #### 2 640538, 17343837, 6281693, 5780799 ####[facility] [address] [place] [address] Chloride [Moles/Vol] 97 mmol/L Low 101-111 [facility] Comment on above: Performed By: #### 2 406355, 01000134, 6605541, 8628829 ####[facility] [address] [place] [address] CO2 [Moles/Vol] 30 mmol/L Normal 21-31 [facility] Comment on above: Performed By: #### 2 494576, 04916397, 1858781, 9605446 ####[facility] [address] [place] [address] Creatinine [Mass/Vol] 1.3 mg/dL Normal 0.5-1.3 [facility] Comment on above: Performed By: #### 2 965374, 84537946, 1789430, 5216474 ####[facility] [address] [place] [address] Globulin (S) [Mass/Vol] 3.6 g/dL Normal 1.4-4.0 [facility] Comment on above: Performed By: #### 2 977814, 76960217, 5310918, 1247788 ####[facility] [address] [place] [address] Glucose [Mass/Vol] 124 mg/dL Normal 55-199 [facility] Comment on above: Result Comment: If t his glucose result represents a fasting glucose, interpretation should refer to the following reference range: 55-99 mg/dL Performed By: #### 2 050582, 94279311, 2342088, 7850853 ####[facility] [address] [place] [address] Potassium [Moles/Vol] 4.0 mmol/L Normal 3.5-5.3 [facility] Comment on above: Performed By: #### 2 902795, 65193958, 5652670, 8588056 ####[facility] [address] [place] [address] Protein [Mass/Vol] 7.3 g/dL Normal 6.0-7.8 [facility] Comment on above: Performed By: #### 2 195232, 35981762, 1945151, 6043018 ####[facility] [address] [place] [address] Sodium [Moles/Vol] 138 mmol/L Normal 135-145 [facility] Comment on above: Performed By: #### 2 626957, 60724988, 8781787, 9646639 ####[facility] [address] [place] [address] Urea nitrogen [Mass/Vol] 42 mg/dL High 5-21 [facility] Comment on above: Performed By: #### 2 340121, 94393482, 5223573, 0905145 ####[facility] [address] [place] [address] Urea nitrogen/Creatinine [Mass ratio] 32 No Units High 10-20 [facility] Comment on above: Performed By: #### 2 301839, 29332445, 8368616, 9615582 ####[facility] [address] [place] [address] Capillary Glucose POCon Glucose [Mass/Vol] 121 mg/dL High 55-99 [facility] Comment on above: Result Comment: Gareth guerrero RN/ Performed By: #### 2 10777527 ####[facility] [address] [place] [address] Coding Queryon 01-22-2023 Coding Query Normal [facility] HEMATOLOGYOrdered By: SYSTEM SYSTEM on 01-22-2023 [...] Correspondence Off iceon 01-22-2023 Insurance Correspondence Office [id number]#1 .00CD:127 Normal [facility] Interdisciplinary Note - Santosh e Manageron 01-22-2023 Interdisciplinary Note - Visor Installer Normal [facility] Comment on above: Result Comment: Elec tronically Signed By: Downs, Natalie R\.br\Date and Time Signed: 01/22/23 11:13 EDT Interdisciplinary Note - Murphy n 01-22-2023 Interdisciplinary Note - OT Normal [facility] Interdisciplinary Note - PTo n 01-22-2023 Interdisciplinary Note - PT Normal [facility] Message from Medicareon Message from Medicare [id number]#1 .00CD:127 Normal [facility] Progress Note-Physicianon Progress Note-Physician Normal F [facility] Comment on above: Result Comment: Elec tronically Signed By: New Johnson DO\.br\Date and Time Signed: 01/22/23 14:15 EDT eGFRon 01-22-2023 GFR/1.73 sq M.predicted among non-blacks MDRD (S/P/Bld) [Vol rate/Area] 56 mL/min/1.73 m2 Low >=59 [facility] Comment on above: Order Comment: Order added by Discern Expert. Result Comment: Outpatient Physical Therapist earnest kidney disease could be indicated at eGFR's of less than 60 mL/min/1.73m2. Kidney failure is indicated at less than 15 mL/min/1.73m2. Performed By: #### 2 637796, 91912786, 5680364, 5945903 ####[facility] [address] [place] [address] Auto Diffon 01-21-2023 Basophils/100 WBC (Bld) 0.9 % Normal 0.0-2.0 [facility] Comment on above: Order Comment: Order Added by Discern Expert. Performed By: #### 2 369922, 7738045, 51539916, 39048413, 2567739, 9199000 ####[facility] [address] [place] [address] Basophils/Leukocytes Auto (Bld) [Pure # fraction] 0.1 E9/L Normal 0.0-0.2 [facility] Comment on above: Order Comment: Order Added by Discern Expert. Performed By: #### 2 122071, 2653980, 97832924, 41718870, 7193191, 9907389 ####[facility] [address] [place] [address] Eosinophils/100 WBC (Bld) 3.3 % Normal 0.0-8.0 [facility] Comment on above: Order Comment: Order Added by Discern Expert. Performed By: #### 2 962493, 4348014, 63615547, 38681215, 7745552, 9909897 ####[address] [place] [address] Eosinophils/Leukocytes Auto (Bld) [Pure # fraction] 0.4 E9/L Normal 0.0-0.5 [facility] Comment on above: Order Comment: Order Added by Discern Expert. Performed By: #### 2 680057, 9294638, 00954459, 58351874, 1576973, 1655992 ####[address] [address] Lymphocytes/100 WBC (Bld) 10.4 % Low 14.0-50.0 [facility] Comment on above: Order Comment: Order Added by Discern Expert. Performed By: #### 2 972500, 6468590, 97942709, 87529760, 7748883, 6676742 ####[address] [address] Lymphocytes/Leukocytes Auto (Bld) [Pure # fraction] 1.2 E9/L Normal 1.0-4.0 [facility] Comment on above: Order Comment: Order Added by Discern Expert. Performed By: #### 2 171351, 8706465, 46776767, 18814758, 7852932, 6846990 ####[address] [address] Monocytes/100 WBC (Bld) 7.4 % Normal 4.0-14.0 [facility] Comment on above: Order Comment: Order Added by Discern Expert. Performed By: #### 2 475374, 4402459, 53333962, 09923353, 6662171, 3794055 ####[address] [place] [address] Monocytes/Leukocytes Auto (Bld) [Pure # fraction] 0.9 E9/L Normal 0.2-1.0 [facility] Comment on above: Order Comment: Order Added by Discern Expert. Performed By: #### 2 047300, 1320151, 83006395, 70646027, 9296616, 4284911 ####[address] [place] [address] Neutrophils/100 WBC (Bld) 78.0 % High 36.0-75.0 [facility] Comment on above: Order Comment: Order Added by Discern Expert. Performed By: #### 2 052351, 5403059, 00807246, 36597386, 6521503, 1771536 ####[address] [place] [address] Neutrophils/Leukocytes Auto (Bld) [Pure # fraction] 9.1 E9/L High 2.0-7.5 [facility] Comment on above: Order Comment: Order Added by Discern Expert. Performed By: #### 2 706570, 7337123, 99186765, 52401155, 0212509, 6188006 ####[facility] [address] [place] [address] BMPon 01-21-2023 Creatinine [Mass/Vol] 1.2 mg/dL Normal 0.5-1.3 [facility] Comment on above: Performed By: #### 2 511894, 7811906, 94223917, 47447603, 9920106, 7012044 ####[facility] [address] [place] [address] Urea nitrogen [Mass/Vol] 38 mg/dL High 5-21 [facility] Comment on above: Performed By: #### 2 691242, 2419765, 62058801, 94800673, 9763950, 6709587 ####[address] [place] [address] Urea nitrogen/Creatinine [Mass ratio] 32 No Units High 10-20 [facility] Comment on above: Performed By: #### 2 954707, 6149828, 97088376, 09369209, 1155712, 8834377 ####[facility] [address] [place] [address] Anion gap [Moles/Vol] 14 mmol/L Normal 6-16 [facility] Comment on above: Performed By: #### 2 360418, 4765235, 05645142, 66899535, 5742163, 1098434 ####[facility] [address] [place] [address] Calcium [Mass/Vol] 9.9 mg/dL Normal 8.9-11.1 [facility] Comment on above: Performed By: #### 2 050081, 8428567, 39895138, 08296996, 1133080, 5338000 ####[facility] [address] [place] [address] Chloride [Moles/Vol] 95 mmol/L Low 101-111 [facility] Comment on above: Performed By: #### 2 905700, 6170950, 67019266, 00739439, 0041982, 6271180 ####[facility] [address] [place] [address] CO2 [Moles/Vol] 31 mmol/L Normal 21-31 [facility] Comment on above: Performed By: #### 2 261620, 1900532, 48260025, 52857167, 6044486, 9815868 ####[facility] [address] [facility] [place] [address] Glucose [Mass/Vol] 124 mg/dL Normal 55-199 [facility] Comment on above: Result Comment: If t his glucose result represents a fasting glucose, interpretation should refer to the following reference range: 55-99 mg/dL Performed By: #### 2 364901, 9583832, 02422817, 05884579, 5494265, 8161138 ####[facility] [address] [place] [address] Potassium [Moles/Vol] 4.3 mmol/L Normal 3.5-5.3 [facility] Comment on above: Performed By: #### 2 211577, 8397624, 10557801, 54149001, 2045741, 1802958 ####[facility] [address] [place] [address] Sodium [Moles/Vol] 136 mmol/L Normal 135-145 [facility] Comment on above: Performed By: #### 2 826525, 6671582, 17577625, 41377419, 9257741, 2053987 ####[facility] [address] [place] [address] CBC w/ Auto Diffon 3 Erythrocyte distribution width (RBC) [Ratio] 15.4 % High 10.9-14.2 [facility] Comment on above: Performed By: #### 2 378560, 9140443, 20777155, 76335626, 3029685, 4775834 ####[facility] [address] [place] [address] Hematocrit (Bld) [Volume fraction] 42.5 % Normal 37.7-49.0 [facility] Comment on above: Performed By: #### 2 455022, 4563663, 75748711, 82901866, 4114544, 0066780 ####[facility] [address] [place] [address] Hemoglobin (Bld) [Mass/Vol] 13.9 g/dL Normal 13.5-17.5 [facility] Comment on above: Performed By: #### 2 446010, 4872817, 68652427, 21940408, 9933655, 0347427 ####[facility] [address] [place] [address] MCH (RBC) [Entitic mass] 27.3 pg Normal 27.0-34.0 [facility] Comment on above: Performed By: #### 2 941841, 2990917, 80556862, 89807978, 7266304, 9548184 ####[facility] [address] [place] [address] MCHC (RBC) [Mass/Vol] 32.7 g/dL Normal 31.4-36.0 [facility] Comment on above: Performed By: #### 2 771022, 9488053, 50873692, 61407461, 3963851, 8341632 ####[address] [address] MCV (RBC) [Entitic vol] 83.4 fL Normal 80.0-100.[address] [facility] Comment on above: Performed By: #### 2 820033, 6359833, 41993721, 06443555, 3322529, 1258531 ####[address] [address] Platelet mean volume (Bld) [Entitic vol] 8.6 fL Normal 6.4-10.8 [facility] Comment on above: Performed By: #### 2 132212, 2500869, 25166088, 48922597, 1886670, 5773863 ####[address] [address] Platelets (Bld) [#/Vol] 252.0 E9/L Normal 150.0-500.0 [facility] Comment on above: Performed By: #### 2 162972, 4762398, 41899070, 17561833, 4898151, 2532734 ####[address] [address] RBC (Bld) [#/Vol] 5.1 E12/L Normal 4.3-5.9 [facility] Comment on above: Performed By: #### 2 681650, 5855877, 94320575, 58281149, 8557031, 9125991 ####[facility] [address] [place] [address] WBC corrected for nucl RBC Auto (Bld) [#/Vol] 11.6 E9/L High 4.0-11.0 [facility] Comment on above: Performed By: #### 2 173959, 3354275, 06845830, 61025611, 3494442, 1648384 ####[facility] [address] [place] [address] CHEMISTRYOrdered By: SYSTEM SYSTEM on 01-21-2023 Troponin [...] 62 mL/min/1.73 m2 Normal >=59mL/min/ 1.73 m2 [facility] Chem S Globulin (S) [Mass/Vol] 3.8 g/dL Normal 1.4 - 4.0 gm/dL [facility] Remisol Glucose [Mass/Vol] 124 mg/dL Normal 55 - 199 mg/dL [facility] Remisol Potassium [Moles/Vol] 4.3 mmol/L Normal 3.5 - 5.3 mmol/L [facility] Protein [Mass/Vol] 7.7 g/dL Normal 6.0 - 7.8 gm/dL [facility] Sodium [Moles/Vol] 136 mmol/L Normal 135 - 145 mmol/L [facility] Remisol Troponin I.cardiac [Mass/Vol] 25.50 pg/mL Normal 15.90 - 38.40 pg/mL [facility] Urea nitrogen [Mass/Vol] 38 mg/dL High 5 - 21 mg/dL [facility] Remisol Urea nitrogen/Creatinine [Mass ratio] 32 mg/mg High 10 - 20 [facility] Remisol Consent for Treatmenton 12-24 Consent for Treatment [id number]#1 .00CD:127 Normal [facility] ED Clinical Summaryon 2022 ED Clinical Summary Normal [facility] ED Note-Physicianon 01-22-20 ED Note-Physician Normal [facility] Comment on above: Result Comment: Elec tronically Signed By: Gustavo Yusuf DO.br\Date and Time Signed: 01/21/23 19:26 EDT ED Patient Education Noteon 01-21-2023 ED Patient Education Note Normal [facility] ED Patient Summaryon 023 ED Patient Summary Normal [facility] HEMATOLOGYOrdered By: SYSTEM SYSTEM on 01-21-2023 Basophils/100 WBC (Bld) 0.9 % Normal 0.0 - 2.0 % [facility] [...] 5.1 E12/L Normal 4.3 - 5.9 E12/L [facility] WBC corrected for nucl RBC Auto (Bld) [#/Vol] 11.6 E9/L High 4.0 - 11.0 E9/L [facility] Hep Func Panelon 01-21-2023 Bilirubin.direct [Mass/Vol] 0.1 mg/dL Normal 0.1-0.4 [facility] Comment on above: Performed By: #### 2 098162, 1548611, 69162057, 21197531, 7451305, 2792755 ####[facility] [address] [place] [address] Bilirubin.indirect [Mass or moles/Vol] 0.8 mg/dL Normal 0.1-0.9 [facility] Comment on above: Performed By: #### 2 117938, 6272884, 07670411, 52685555, 3730070, 0840064 ####[facility] [address] [place] [address] Albumin [Mass/Vol] 3.9 g/dL Normal 3.3-5.0 [facility] Comment on above: Performed By: #### 2 399039, 8342168, 07927028, 34412632, 9376366, 3609194 ####[facility] [address] [place] [address] Albumin/Globulin (S) [Mass conc ratio] 1.0 Low 1.1-2.2 [facility] Comment on above: Performed By: #### 2 763623, 0740277, 28155871, 42538540, 8603225, 8987197 ####[facility] [address] [place] [address] ALP [Catalytic activity/Vol] 50 Int._Unit/L Normal 21-98 [facility] Comment on above: Performed By: #### 2 108691, 8650983, 83450713, 51188949, 9917961, 8971898 ####[facility] [address] [place] [address] ALT No additional P-5'-P [Catalytic activity/Vol] 23 Int._Unit/L Normal 6-46 [facility] Comment on above: Performed By: #### 2 804108, 3176288, 39805644, 68394662, 7543280, 8073226 ####[facility] [address] [place] [address] AST [Catalytic activity/Vol] 22 Int._Unit/L Normal 5-43 [facility] Comment on above: Performed By: #### 2 508136, 5291260, 11184908, 19757952, 9588973, 3507854 ####[facility] [address] [place] [address] Bilirubin [Mass/Vol] 0.9 mg/dL Normal 0.0-1.1 [place] Comment on above: Performed By: #### 2 230511, 1672021, 69829772, 65414836, 0448362, 3252513 ####[facility] [address] [place] [address] Globulin (S) [Mass/Vol] 3.8 g/dL Normal 1.4-4.[address] [facility] Comment on above: Performed By: #### 2 542958, 1532155, 54919057, 62131366, 4933361, 0537658 ####[facility] [address] [place] [address] Protein [Mass/Vol] 7.7 g/dL Normal 6.0-7.8 [facility] Comment on above: Performed By: #### 2 061256, 5341247, 40713144, 60254738, 7947624, 0083880 ####[address] [place] [address] Fpc Recordson 01-21 [facility] Records [id number]# 1.00CD:127 Normal [facility] Troponin 0 Hr.on 01-21-2023 Troponin I.cardiac [Mass/Vol] 25.50 pg/mL Normal 15.90-38.40 [facility] Comment on above: Result Comment: The 95% CI (Confidence Interval) PPV (Positive Predictive Value) for myocardial infarction in females is 38 pg/mL, in males 51 pg/mL. The results should be used in conjunction with clinical conditions of myocardial infarction.(Access High Sensitivity Troponin I Instructions For Use, [employer], December 2017) Performed By: #### 2 044898, 4506722, 43577975, 90596229, 2849724, 2942693 ####[address] [address] Troponin 3 Hr.on 01-21-2023 Troponin I.cardiac [Mass/Vol] 23.90 pg/mL Normal 15.90-38.40 [facility] Comment on above: Result Comment: The 95% CI (Confidence Interval) PPV (Positive Predictive Value) for myocardial infarction in females is 38 pg/mL, in males 51 pg/mL. The results should be used in conjunction with clinical conditions of myocardial infarction.(Te[employer] High Sensitivity Troponin I Instructions For Use, [employer], December 2017) Performed By: #### 1 2085123 ####[address] [address] UA With Cult Reflexon 2022 Bilirubin Ql (U) Negative Normal Negative [facility] Comment on above: Performed By: #### 1 0054912 ####[address] [address] Clarity (U) CLEAR Normal Clear [facility] Comment on above: Performed By: #### 1 6065600 ####[address] [address] Color (U) STRAW Abnormal Yellow [facility] Comment on above: Performed By: #### 1 0181632 ####[address] [address] Epithelial cells.squamous LM.HPF (Urine sed) [#/Area] 0-2 Normal 0-2 [facility] Comment on above: Performed By: #### 1 8771083 ####[facility] [address] [address] Glucose Test strip (U) [Mass/Vol] Negative Normal Negative [facility] Comment on above: Performed By: #### 1 2755022 ####[address] [address] Hemoglobin Ql (U) Negative Normal Negative [facility] Comment on above: Performed By: #### 1 4517710 ####[address] [address] Ketones (U) [Mass/Vol] Negative Normal Negative [facility] Comment on above: Performed By: #### 1 4296072 ####[address] [address] [place].plasma/[place].R BC (Bld) [Mass ratio] 0-3 Normal 0-3 [facility] Comment on above: Performed By: #### 1 2672931 ####[address] [address] Nitrite Ql (U) Negative Normal Negative [facility] Comment on above: Performed By: #### 1 5596881 ####[address] [address] pH (U) 6.0 [pH] Invalid Interpretation Code 5.0-9.0 [facility] Comment on above: Performed By: #### 1 5938362 ####[address] [address] Protein (U) [Mass/Vol] Negative Normal Negative [facility] Comment on above: Performed By: #### 1 2786030 ####[address] [address] Specific gravity (U) [Rel density] 1.010 Invalid Interpretation Code 1.005-1.030 [facility] Comment on above: Performed By: #### 1 8726658 ####[address] [address] Type of Urine collection method Clean Catch Normal [facility] Comment on above: Performed By: #### 1 5155480 ####[facility] [address] [place] [address] Urobilinogen Qn (U) 0.2 {Lei'U}/dL Normal 0.0-1.0 [facility] Comment on above: Performed By: #### 1 5991139 ####[facility] [address] [place] [address] WBC Auto Ql (U) Negative Normal Negative [facility] Comment on above: Performed By: #### 1 3318680 ####[facility] [address] [place] [address] WBC LM.HPF (Urine sed) [#/Area] 0-5 Normal 0-5 [facility] Comment on above: Performed By: #### 1 8129131 ####[facility] [address] [place] [address] URINALYSISOrdered By: Karen Vergara on 01-21-2023 Bilirubin Ql (U) Negative (01/21/23 4:41 PM) Normal Negative [facility] UA Auto SS Clarity (U) Clear (01/21/23 [...] PM) Normal Negative [facility] UA Auto SS [place].plasma/[place].R BC (Bld) [Mass ratio] 0-3 /HPF Normal 0-3/HPF [facility] UA Au to SS Nitrite Ql (U) Negative (01/21/23 4:41 PM) Normal Negative [facility] UA Auto SS pH (U) 6.0 *NA* (01/21/23 4:41 PM) Invalid Interpretation Code 5.0 - 9.0 [facility] UA Auto SS Protein (U) [Mass/Vol] Negative (01/21/23 4:41 PM) Normal Negative [facility] UA Auto SS Specific gravity (U) [Rel density] 1.010 *NA* (01/21/23 4:41 PM) Invalid Interpretation Code 1.005 - 1.030 [facility] UA Auto SS UA Spec Desc Clean Catch (01/21/23 4:41 PM) Normal [facility] UA Auto SS Urobilinogen Qn (U) 0.9923834 {Lei'U}/dL Normal 0.0 - 1.0 EU/dL [facility] UA Auto SS WBC Auto Ql (U) Negative (01/21/23 4:41 PM) Normal Negative [facility] UA Auto SS WBC LM.HPF (Urine sed) [#/Area] 0-5 /HPF Normal 0-5/HPF [facility] UA Auto SS XR Chest Single Viewon 01-21 XR Chest Single View Normal [facility] eGFRon 01-21-2023 GFR/1.73 sq M.predicted among non-blacks MDRD (S/P/Bld) [Vol rate/Area] 62 mL/min/1.73 m2 Normal >=59 [facility] Comment on above: Order Comment: Order added by Discern Expert. Result Comment: Outpatient Physical Therapist earnest kidney disease could be indicated at eGFR's of less than 60 mL/min/1.73m2. Kidney failure is indicated at less than 15 mL/min/1.73m2. Performed By: #### 2 752422, 0465422, 63571991, 95045780, 3355178, 4591258 ####[facility] [address] [place] [address] Discharge Instructionson Discharge Instructions [id number]#1 .00CD:127 Normal [facility] Capillary Glucose POCon 12-23 Glucose [Mass/Vol] 117 mg/dL High 55-99 [facility] Comment on above: Result Comment: Yazmin bri Meter Performed By: #### 2 51045750 ####[facility] [address] [place] [address] Family Medicine Office/Clini c Noteon 01-15-2023 Family Medicine Office/Clinic Note Normal [facility] Comment on above: Result Comment: Elec tronically Signed By: SHAISTA POTTS, Dennise.candice\Date and Time Signed: 01/15/23 16:46 EDT Capillary Glucose POCon 12-23 Glucose [Mass/Vol] 121 mg/dL High 55-99 [facility] Comment on above: Result Comment: Yazmin bri Meter Performed By: #### 2 39033140 ####[facility] [address] [place] [address] Capillary Glucose POCon 12-23 Glucose [Mass/Vol] 127 mg/dL High 55-[address] [place] [address] Comment on above: Result Comment: Yazmin bri Meter Performed By: #### 2 05609693 ####[facility] [address] [place] [address] Capillary Glucose POCon 12-22 Glucose [Mass/Vol] 104 mg/dL High 55-[address] [place] [address] Comment on above: Result Comment: Yazmin bri Meter Performed By: #### 2 23210393 ####[facility] [address] [place] [address] Capillary Glucose POCon 12-22 Glucose [Mass/Vol] 121 mg/dL High 55-[address] [place] [address] Comment on above: Result Comment: Yazmin bri Meter Performed By: #### 2 16463181 ####[facility] [address] [place] [address] Capillary Glucose POCon 12-22 Glucose [Mass/Vol] 110 mg/dL High 55-99 [facility] Comment on above: Result Comment: Yazmin bri Meter Performed By: #### 2 42898402 ####[facility] [address] [place] [address] Capillary Glucose POCon 12-22 Glucose [Mass/Vol] 119 mg/dL High 55-99 [facility] Comment on above: Result Comment: Yazmin bri Meter Performed By: #### 2 13168332 ####[facility] [address] [place] [address] Capillary Glucose POCon 12-22 Glucose [Mass/Vol] 141 mg/dL High 55-99 [facility] Comment on above: Result Comment: Yazmin bir Meter Performed By: #### 2 76159034 ####[facility] [address] [place] [address] Capillary Glucose POCon 12-22 Glucose [Mass/Vol] 104 mg/dL High 55-99 [facility] Comment on above: Result Comment: Yazmin bri Meter Performed By: #### 2 90509289 ####[facility] [address] [place] [address] BMPon 12-30-2022 Calcium [Mass/Vol] 9.1 mg/dL Normal 8.9-11.1 [facility] Comment on above: Performed By: #### 7 39113892, 9631139, 38933581 ####[facility] [address] [place] [address] Anion gap [Moles/Vol] 18 mmol/L High 6-16 [facility] Comment on above: Performed By: #### 7 10344439, 3560435, 89470730 ####[facility] [address] [place] [address] Chloride [Moles/Vol] 91 mmol/L Low 101-111 [place] Comment on above: Performed By: #### 7 08259241, 9820369, 86293093 ####[facility] [address] [place] [address] CO2 [Moles/Vol] 30 mmol/L Normal 21-31 [facility] Comment on above: Performed By: #### 7 85565525, 2336967, 73927872 ####[facility] [address] [place] [address] Creatinine [Mass/Vol] 1.3 mg/dL Normal 0.5-1.3 [facility] Comment on above: Performed By: #### 7 28268123, 1098096, 62698288 ####[facility] [address] [place] [address] Glucose [Mass/Vol] 171 mg/dL Normal 55-199 [facility] Comment on above: Result Comment: If t his glucose result represents a fasting glucose, interpretation should refer to the following reference range: 55-99 mg/dL Performed By: #### 7 33819293, 3273903, 39842867 ####[facility] [address] [place] [address] Potassium [Moles/Vol] 4.2 mmol/L Normal 3.5-5.3 [facility] Comment on above: Performed By: #### 7 94327812, 1971196, 02338379 ####[facility] [address] [place] [address] Sodium [Moles/Vol] 135 mmol/L Normal 135-145 [facility] Comment on above: Performed By: #### 7 13902698, 6767213, 19327052 ####[facility] [address] [place] [address] Urea nitrogen [Mass/Vol] 36 mg/dL High 5-21 [facility] Comment on above: Performed By: #### 7 34746926, 3360081, 85793952 ####[facility] [address] [place] [address] Urea nitrogen/Creatinine [Mass ratio] 28 No Units High 10-20 [facility] Comment on above: Performed By: #### 7 97692330, 8128323, 53464491 ####[facility] [address] [place] [address] GxuQ1dqi 12-30-2022 HbA1c (Bld) [Mass fraction] 6.9 % High <=5.9 [facility] Comment on above: Performed By: #### 7 57001676, 7928137, 14266486 ####[facility] [address] [place] [address] eGFRon 12-30-2022 GFR/1.73 sq M.predicted among non-blacks MDRD (S/P/Bld) [Vol rate/Area] 56 mL/min/1.73 m2 Low >=59 [facility] Comment on above: Order Comment: Order added by Discern Expert. Result Comment: Outpatient Physical Therapist earnest kidney disease could be indicated at eGFR's of less than 60 mL/min/1.73m2. Kidney failure is indicated at less than 15 mL/min/1.73m2. Performed By: #### 7 05881528, 6783388, 12124461 ####[facility] [address] [place] [address] Capillary Glucose POCon 08-0 Glucose [Mass/Vol] 141 mg/dL High 55-99 [facility] Comment on above: Result Comment: Yazmin bri Meter Performed By: #### 2 22906351 ####[facility] [address] [place] [address] Capillary Glucose POCon 08-0 Glucose [Mass/Vol] 101 mg/dL High 55-99 [facility] Comment on above: Result Comment: Yazmin bri Meter Performed By: #### 2 57135337 ####[facility] [address] [place] [address] C Blood Charcoalon 3 Blood Culture Charcoal Normal [facility] Comment on above: Performed By: #### 1 6199430 ####[facility] [address] [place] [address] Capillary Glucose POCon 08-0 Glucose [Mass/Vol] 135 mg/dL High 55-99 [facility] Comment on above: Result Comment: Yazmin bri Meter Performed By: #### 2 57494181 ####[facility] [address] [place] [address] Capillary Glucose POCon 08-0 Glucose [Mass/Vol] 110 mg/dL High 55-99 [facility] Comment on above: Result Comment: Yazmin bri Meter Performed By: #### 2 47861115 ####[facility] [address] [place] [address] Consultation Noteon 12-24-19 Consultation Note Normal [facility] Comment on above: Result Comment: Elec tronically Signed By: Marcus POTTS, [place]\.br\Date and Time Signed: 12/23/22 07:33 EDT Family Medicine Office/Clini c Noteon 12-23-2022 Family Medicine Office/Clinic Note Normal [facility] Comment on above: Result Comment: Elec tronically Signed By: SHAISTA POTTS, Donta\.br\Date and Time Signed: 12/22/22 22:31 EDT C Blood Charcoalon Blood Culture Charcoal Normal [facility] Comment on above: Performed By: #### 1 [id number] ####[facility] [address] [place] [address] U Legi Agon 12-22-2022 L. pneumophila 1 Ag IA Ql (U) Negative Invalid Interpretation Code Negative [facility] Comment on above: Result Comment: Pres umptive negative for L. pneumophila serogroup 1 antigen in urine,suggesting no recent or current infection. Legionnaires' diseasecannot be ruled out since other serogroups and species may also causedisease.Performed at: [address] [id number] MD Tyler Gurrola Performed By: #### 2 685266 ####[facility] [address] [place] [address] C Urineon 12-21-2022 Bacteria identified Cx Nom (U) Normal [facility] Comment on above: Performed By: #### 1 6865617, 4058114 ####[facility] [address] [place] [address] Capillary Glucose POCon 11-23 Glucose [Mass/Vol] 134 mg/dL High 55-99 [facility] Comment on above: Result Comment: Yazmin bri Meter Performed By: #### 2 08897672 ####[facility] [address] [place] [address] Auto DiffOrdered By: SYSTEM SYSTEM on 12-20-2022 Basophils/100 WBC (Bld) 0.5 % Normal 0.0-2.0 [facility] Comment on above: Order Comment: Order Added by Discern Expert. Performed By: #### 2 075674, 9797116, 37927545, 6315721 ####[address] [address] Basophils/Leukocytes Auto (Bld) [Pure # fraction] 0.0 E9/L Normal 0.0-0.2 [facility] Comment on above: Order Comment: Order Added by Bethany Expert. Performed By: #### 2 140659, 5943486, 67265730, 2799342 ####[address] [address] Eosinophils/100 WBC (Bld) 7.9 % Normal 0.0-8.0 [facility] Comment on above: Order Comment: Order Added by Bethany Expert. Performed By: #### 2 752571, 4421934, 46407430, 6741678 ####[address] [address] Eosinophils/Leukocytes Auto (Bld) [Pure # fraction] 0.8 E9/L High 0.0-0.5 [facility] Comment on above: Order Comment: Order Added by Bethany Expert. Performed By: #### 2 341134, 1104401, 38922975, 8027518 ####[address] [address] Lymphocytes/100 WBC (Bld) 9.5 % Low 14.0-50.0 [facility] Comment on above: Order Comment: Order Added by Bethany Expert. Performed By: #### 2 565458, 0069375, 70844213, 6995585 ####[address] [address] Lymphocytes/Leukocytes Auto (Bld) [Pure # fraction] 1.0 E9/L Normal 1.0-4.0 [facility] Comment on above: Order Comment: Order Added by Discern Expert. Performed By: #### 2 501494, 5002493, 97666369, 8910809 ####[address] [address] Monocytes/100 WBC (Bld) 7.6 % Normal 4.0-14.0 [facility] Comment on above: Order Comment: Order Added by Discern Expert. Performed By: #### 2 344220, 5900376, 85011042, 0637421 ####[address] [address] Monocytes/Leukocytes Auto (Bld) [Pure # fraction] 0.8 E9/L Normal 0.2-1.0 [facility] Comment on above: Order Comment: Order Added by Discern Expert. Performed By: #### 2 942100, 3400200, 81186644, 3976414 ####[address] [address] Neutrophils/100 WBC (Bld) 74.5 % Normal 36.0-75.0 [facility] Comment on above: Order Comment: Order Added by Bethany Expert. Performed By: #### 2 837011, 4475952, 03514049, 2331861 ####[facility] [address] [address] Neutrophils/Leukocytes Auto (Bld) [Pure # fraction] 7.7 E9/L High 2.0-7.5 [facility] Comment on above: Order Comment: Order Added by Discern Expert. Performed By: #### 2 599766, 7346775, 53752923, 3212878 ####[facility] [address] [address] BMPOrdered By: SYSTEM SYSTEM on 12-20-2022 Anion gap [Moles/Vol] 8 mmol/L Normal 6-16 [facility] C [facility] Comment on above: Performed By: #### 2 487375, 0773960, 75907381, 5621764 ####[facility] [address] [address] Calcium [Mass/Vol] 7.9 mg/dL Low 8.9-11.1 [facility] R emisol Comment on above: Performed By: #### 2 757232, 2487620, 14757269, 3134007 ####[facility] [address] [place] [address] Chloride [Moles/Vol] 105 mmol/L Normal 101-111 [facility] Remisol Comment on above: Performed By: #### 2 368455, 2288973, 97631688, 0530726 ####[facility] [address] [place] [address] CO2 [Moles/Vol] 25 mmol/L Normal 21-31 [facility] Ashwin luanne Comment on above: Performed By: #### 2 254137, 6684876, 35380354, 9952889 ####[address] [address] Creatinine [Mass/Vol] 1.0 mg/dL Normal 0.5-1.3 [facility] C Rem[facility] Comment on above: Performed By: #### 2 661106, 0873277, 60748730, 4201274 ####[facility] [address] [place] [address] Glucose [Mass/Vol] 106 mg/dL Normal 55-199 [facility] R emisol Comment on above: Result Comment: If t his glucose result represents a fasting glucose, interpretation should refer to the following reference range: 55-99 mg/dL Performed By: #### 2 198933, 5238942, 56784671, 6704413 ####[facility] [address] [address] Potassium [Moles/Vol] 4.4 mmol/L Normal 3.5-5.3 [facility] C Remisol Comment on above: Performed By: #### 2 727620, 6992354, 36609666, 8469154 ####[address] [address] Sodium [Moles/Vol] 134 mmol/L Low 135-145 [facility] R emisol Comment on above: Performed By: #### 2 106202, 8265029, 98417894, 2982283 ####[facility] [address] [place] [address] Urea nitrogen [Mass/Vol] 22 mg/dL High 5-21 [facility] Remisol Comment on above: Performed By: #### 2 345417, 7441825, 15051016, 7102665 ####[address] [place] [address] BMPon 12-20-2022 Urea nitrogen/Creatinine [Mass ratio] 22 No Units High 10-20 [facility] Comment on above: Performed By: #### 2 162980, 1450209, 68197787, 5741851 ####[address] [address] CBC w/ Auto DiffOrdered By: Bony Hdez on 12-20-2022 Erythrocyte distribution width (RBC) [Ratio] 14.7 % High 10.9-14.2 [facility] Comment on above: Performed By: #### 2 989093, 5708390, 54754141, 2448989 ####[address] [address] Hematocrit (Bld) [Volume fraction] 34.6 % Low 37.7-49.0 [facility] Comment on above: Performed By: #### 2 181552, 9707479, 83154856, 8550549 ####[address] [address] Hemoglobin (Bld) [Mass/Vol] 11.7 g/dL Low 13.5-17.5 [facility] Comment on above: Performed By: #### 2 358855, 7481384, 88958395, 2761386 ####[address] [address] MCH (RBC) [Entitic mass] 28.6 pg Normal 27.0-34.0 [facility] Comment on above: Performed By: #### 2 967201, 9547468, 91491089, 1785830 ####[facility] [address] [address] MCHC (RBC) [Mass/Vol] 33.7 g/dL Normal 31.4-36.0 [facility] Comment on above: Performed By: #### 2 840922, 6930935, 77250699, 4664604 ####[place] [address] MCV (RBC) [Entitic vol] 84.7 fL Normal 80.0-100.0 F [facility] Comment on above: Performed By: #### 2 974987, 1749831, 68201414, 7021949 ####[place] [address] Platelet mean volume (Bld) [Entitic vol] 9.5 fL Normal 6.4-10.8 [facility] Comment on above: Performed By: #### 2 929561, 1731830, 39287168, 1661826 ####[place] [address] Platelets (Bld) [#/Vol] 216.0 E9/L Normal 150.0-500.0 [facility] Comment on above: Performed By: #### 2 190941, 4997870, 73176076, 1261514 ####[place] [address] RBC (Bld) [#/Vol] 4.1 E12/L Low 4.3-5.9 [facility] Comment on above: Performed By: #### 2 396134, 2949209, 05406592, 3734548 ####[place] [address] WBC corrected for nucl RBC Auto (Bld) [#/Vol] 10.3 E9/L Normal 4.0-11.0 [facility] Comment on above: Performed By: #### 2 938240, 7771952, 26813561, 2074133 ####[place] [id number] CHEMISTRYOrdered By: Lab ROP User on 12-20-2022 Glucose [Mass/Vol] 109 mg/dL High 55 - 99 mg/dL [facility] POC Subsection Comment on above: Result Comment: Gareth GARDINER POC Device SN [id number] Invalid Interpretation Code [facility] POC Subsection POC User ID [id number] Invalid Interpretation Code [facility] POC Subsection POC Username SAMANTHA LAMBERT Invalid Interpretation Code [facility] POC Subsection CHEMISTRYOrdered By: SYSTEM SYSTEM on 12-20-2022 Urea nitrogen/Creatinine [Mass ratio] 22 mg/mg High 10 - 20 [facility] Remisol Capillary Glucose POCon 11-23 Glucose [Mass/Vol] 198 mg/dL High 55-99 [facility] Comment on above: Result Comment: Yazmin bri Meter Performed By: #### 2 [id number] ####[facility] [address] [place] [address] Glucose [Mass/Vol] 109 mg/dL High 55-99 [facility] Comment on above: Result Comment: Gareth GARDINER Performed By: #### 2 [id number] ####[facility] [address] [place] [address] Discharge Documentationon Discharge Documentation [id number]#1 .00CD:127 Normal [facility] Inpatient Patient Summaryon 12-20-2022 Inpatient Patient Summary Normal [facility] Message from Medicareon 11-23 Message from Medicare [id number]# 1.00CD:127 Normal [facility] Monitor Recordon 12-20-2022 Monitor Record [id number]# 1.00CD:127 Normal [facility] Monitor Record [id number]# 1.00CD:127 Normal [facility] Monitor Record [id number]# 1.00CD:127 Normal [facility] Progress Note-Nurseon 2022 Progress Note-Nurse SBAR report called fanta Robert. Patient was transferred into wheelchair x2 stand pivot. Patient discharged to [facility] room 17. Transport by Samantha Lambert POCT. Normal [facility] Transfer Documentson 023 Transfer Documents [id number]#1 .00CD:127 Normal [facility] eGFROrdered By: SYSTEM SYSTE M on 12-20-2022 GFR/1.73 sq M.predicted among non-blacks MDRD (S/P/Bld) [Vol rate/Area] 77 mL/min/1.73 m2 Normal >=59 [facility] [place] Comment on above: Order Comment: Order added by Discern Expert. Result Comment: Outpatient Physical Therapist earnest kidney disease could be indicated at eGFR's of less than 60 mL/min/1.73m2. Kidney failure is indicated at less than 15 mL/min/1.73m2. Performed By: #### 2 365586, 5329840, 76508474, 9636166 ####[facility] [address] [place] [address] Auto Diffon 12-19-2022 Basophils/100 WBC (Bld) 0.4 % Normal 0.0-2.[address] [facility] Comment on above: Order Comment: Order Added by Discern Expert. Performed By: #### 1 3262973, 4052798, 6100311, 4723742 ####[facility] [address] [place] [address] Basophils/Leukocytes Auto (Bld) [Pure # fraction] 0.0 E9/L Normal 0.0-0.2 [facility] Comment on above: Order Comment: Order Added by Discern Expert. Performed By: #### 1 5146086, 1382469, 0552687, 6448747 ####[facility] [address] [place] [address] Eosinophils/100 WBC (Bld) 4.2 % Normal 0.0-8.0 [facility] Comment on above: Order Comment: Order Added by Discern Expert. Performed By: #### 1 6962118, 3670815, 4300653, 7097296 ####[facility] [address] [place] [address] Eosinophils/Leukocytes Auto (Bld) [Pure # fraction] 0.6 E9/L High 0.0-0.5 [facility] Comment on above: Order Comment: Order Added by Discern Expert. Performed By: #### 1 0891404, 9414349, 1484166, 3327610 ####[address] [place] [address] Lymphocytes/100 WBC (Bld) 7.3 % Low 14.0-50.0 [facility] Comment on above: Order Comment: Order Added by Discern Expert. Performed By: #### 1 8518269, 2880058, 5317862, 7845424 ####[address] [address] Lymphocytes/Leukocytes Auto (Bld) [Pure # fraction] 1.0 E9/L Normal 1.0-4.0 [facility] Comment on above: Order Comment: Order Added by Discern Expert. Performed By: #### 1 0119533, 5045408, 6557145, 8084195 ####[address] [address] Monocytes/100 WBC (Bld) 6.5 % Normal 4.0-14.0 [facility] Comment on above: Order Comment: Order Added by Discern Expert. Performed By: #### 1 3676918, 0757193, 1165334, 8476586 ####[facility] [address] [place] [address] Monocytes/Leukocytes Auto (Bld) [Pure # fraction] 0.9 E9/L Normal 0.2-1.0 [facility] Comment on above: Order Comment: Order Added by Discern Expert. Performed By: #### 1 3530102, 5633296, 7661947, 2749668 ####[address] [place] [address] Neutrophils/100 WBC (Bld) 81.6 % High 36.0-75.0 [facility] Comment on above: Order Comment: Order Added by Discern Expert. Performed By: #### 1 3445658, 1456007, 2268073, 5733391 ####[facility] [address] [place] [address] Neutrophils/Leukocytes Auto (Bld) [Pure # fraction] 10.7 E9/L High 2.0-7.5 [facility] Comment on above: Order Comment: Order Added by Discern Expert. Performed By: #### 1 8700374, 6174160, 4836706, 7203154 ####[facility] [address] [place] [address] BMPon 12-19-2022 Anion gap [Moles/Vol] 11 mmol/L Normal 6-16 [facility] Comment on above: Performed By: #### 1 9726725, 8059897, 2609893, 5671900 ####[facility] [address] [place] [address] Calcium [Mass/Vol] 8.5 mg/dL Low 8.9-11.1 [facility] Comment on above: Performed By: #### 1 4634196, 3858035, 7054219, 9344622 ####[facility] [address] [place] [address] Chloride [Moles/Vol] 103 mmol/L Normal 101-111 [place] Comment on above: Performed By: #### 1 9483481, 3869773, 1390714, 0969611 ####[facility] [address] [place] [address] CO2 [Moles/Vol] 28 mmol/L Normal 21-31 [facility] Comment on above: Performed By: #### 1 1803319, 5261767, 3826400, 8777023 ####[facility] [address] [place] [address] Creatinine [Mass/Vol] 1.2 mg/dL Normal 0.5-1.3 [facility] Comment on above: Performed By: #### 1 8497642, 9969204, 5625595, 4694426 ####[facility] [address] [place] [address] Glucose [Mass/Vol] 86 mg/dL Normal 55-199 [facility] Comment on above: Result Comment: If t his glucose result represents a fasting glucose, interpretation should refer to the following reference range: 55-99 mg/dL Performed By: #### 1 8863753, 9269202, 1076967, 5977187 ####[facility] [address] [place] [address] Potassium [Moles/Vol] 4.5 mmol/L Normal 3.5-5.3 [facility] Comment on above: Performed By: #### 1 3927729, 3130522, 8751475, 2954991 ####[facility] [address] [place] [address] Sodium [Moles/Vol] 137 mmol/L Normal 135-145 [facility] Comment on above: Performed By: #### 1 0076244, 4583447, 4593550, 3777851 ####[facility] [address] [place] [address] Urea nitrogen [Mass/Vol] 35 mg/dL High 5-21 [facility] Comment on above: Performed By: #### 1 1109856, 4327261, 0479010, 1473860 ####[facility] [address] [place] [address] Urea nitrogen/Creatinine [Mass ratio] 29 No Units High 10-20 [facility] Comment on above: Performed By: #### 1 0400725, 0062768, 7255339, 4489310 ####[facility] [address] [place] [address] CBC w/ Auto Diffon 3 Erythrocyte distribution width (RBC) [Ratio] 15.0 % High 10.9-14.2 [facility] Comment on above: Performed By: #### 1 5704808, 4964967, 9747713, 2691182 ####[facility] [address] [place] [address] Hematocrit (Bld) [Volume fraction] 38.4 % Normal 37.7-49.0 [facility] Comment on above: Performed By: #### 1 8843285, 9120671, 0084291, 8868319 ####[facility] [address] [place] [address] Hemoglobin (Bld) [Mass/Vol] 12.7 g/dL Low 13.5-17.5 [facility] Comment on above: Performed By: #### 1 6239224, 0586881, 2590745, 9984841 ####[address] [place] [address] MCH (RBC) [Entitic mass] 27.9 pg Normal 27.0-34.0 [facility] Comment on above: Performed By: #### 1 3084658, 1324077, 3398250, 3115145 ####[address] MCHC (RBC) [Mass/Vol] 32.9 g/dL Normal 31.4-36.0 [facility] Comment on above: Performed By: #### 1 1555467, 4486021, 4502919, 9889062 ####[address] [place] [address] MCV (RBC) [Entitic vol] 84.8 fL Normal 80.0-100.[address] [facility] Comment on above: Performed By: #### 1 2089657, 7620245, 3812307, 0772377 ####[facility] [address] [place] [address] Platelet mean volume (Bld) [Entitic vol] 9.5 fL Normal 6.4-10.8 [facility] Comment on above: Performed By: #### 1 5995276, 1487912, 7981555, 8085889 ####[address] [place] [address] Platelets (Bld) [#/Vol] 230.0 E9/L Normal 150.0-500.0 [facility] Comment on above: Performed By: #### 1 7522382, 8806933, 3295693, 4887078 ####[facility] [address] [place] [address] RBC (Bld) [#/Vol] 4.5 E12/L Normal 4.3-5.9 [facility] Comment on above: Performed By: #### 1 9805728, 9490300, 6674723, 2148037 ####[facility] [address] [place] [address] WBC corrected for nucl RBC Auto (Bld) [#/Vol] 13.1 E9/L High 4.0-11.0 [facility] Comment on above: Performed By: #### 1 4320878, 3539341, 5045347, 8775855 ####[facility] [address] [place] [address] CHEMISTRYOrdered By: Lab ROP User on 12-19-2022 Glucose [Mass/Vol] 210 mg/dL High 55 - 99 mg/dL [facility] P[place] Subsection Comment on above: Result Comment: Gareth guerrero RN/ POC Device SN [id number] Invalid Interpretation Code FT POC Subsection POC User ID [id number] Invalid Interpretation Code [facility] P[place] Subsection POC Username JODITRESASHER Armstrong Invalid Interpretation Code [facility] P[place] Subsection Glucose [Mass/Vol] 111 mg/dL High 55 - 99 mg/dL [facility] P[place] Subsection Comment on above: Result Comment: Gareth guerrero RN/ POC Device SN [id number] Invalid Interpretation Code FT POC Subsection POC User ID [id number] Invalid Interpretation Code [facility] POC Subsection POC Username KELLEN HERNANDEZ Invalid Interpretation Code [facility] P[place] Subsection CHEMISTRYOrdered By: SYSTEM SYSTEM on 12-19-2022 Anion gap [Moles/Vol] 11 mmol/L Normal 6 - 16 mEq/L [facility] Calcium [Mass/Vol] 8.5 mg/dL Low 8.9 - 11. 1 mg/dL [facility] Chloride [Moles/Vol] 103 mmol/L Normal 101 - 1 11 mmol/L [facility] CO2 [Moles/Vol] 28 mmol/L Normal 21 - 31 mmol/L [facility] Creatinine [Mass/Vol] 1.2 mg/dL Normal 0.5 - 1.3 mg/dL [facility] Remisol GFR/1.73 sq M.predicted among non-blacks MDRD (S/P/Bld) [Vol rate/Area] 62 mL/min/1.73 m2 Normal >=59mL/min/ 1.73 m2 [facility] Chem S Glucose [Mass/Vol] 86 mg/dL Normal 55 - 199 mg/dL [facility] Remisol Potassium [Moles/Vol] 4.5 mmol/L Normal 3.5 - 5.3 mmol/L [facility] Remisol Sodium [Moles/Vol] 137 mmol/L Normal 135 - 145 mmol/L [facility] Remisol Urea nitrogen [Mass/Vol] 35 mg/dL High 5 - 21 mg/dL [facility] Remisol Urea nitrogen/Creatinine [Mass ratio] 29 mg/mg High 10 - 20 [facility] Remisol Capillary Glucose POCon 11-22 Glucose [Mass/Vol] 210 mg/dL High 55-99 [facility] Comment on above: Result Comment: Gareth GARDINER Performed By: #### 2 66894114 ####[facility] [address] [place] [address] Glucose [Mass/Vol] 111 mg/dL High 55-99 [facility] Comment on above: Result Comment: Gareth GARDINER Performed By: #### 2 53698631 ####[facility] [address] [place] [address] Glucose [Mass/Vol] 201 mg/dL High 55-99 [facility] Comment on above: Result Comment: Gareth GARDINER Performed By: #### 2 34332013 ####[facility] [address] [place] [address] Glucose [Mass/Vol] 93 mg/dL Normal 55-99 [facility] Comment on above: Result Comment: Gareth GARDINER Performed By: #### 2 70807622 ####[facility] [address] [place] [address] HEMATOLOGYOrdered By: SYSTEM SYSTEM on 12-19-2022 Basophils/100 [...] 84.8 fL Normal 80.0 - 100.0 fL [facility] HemeAutoSS Platelet mean volume (Bld) [Entitic vol] 9.5 fL Normal 6.4 - 10.8 fL [facility] HemeAutoSS Platelets (Bld) [#/Vol] 230.0 E9/L Normal 150. 0 - 500.0 E9/L [facility] HemeAutoSS RBC (Bld) [#/Vol] 4.5 E12/L Normal 4.3 - 5.9 E12/L [facility] HemeAutoSS WBC corrected for nucl RBC Auto (Bld) [#/Vol] 13.1 E9/L High 4.0 - 11.0 E9/L [facility] HemeAutoSS Monitor Recordon 12-19-2022 Monitor Record [id number]# 1.00CD:127 Normal [facility] Monitor Record [id number]# 1.00CD:127 Normal [facility] Progress Note-Physicianon Progress Note-Physician Normal F [facility] Comment on above: Result Comment: Elec tronically Signed By: MICHAEL POTTS, Jamir\.br\Date and Time Signed: 12/19/22 09:47 EDT eGFRon 12-19-2022 GFR/1.73 sq M.predicted among non-blacks MDRD (S/P/Bld) [Vol rate/Area] 62 mL/min/1.73 m2 Normal >=59 [facility] Comment on above: Order Comment: Order added by Discern Expert. Result Comment: Outpatient Physical Therapist earnest kidney disease could be indicated at eGFR's of less than 60 mL/min/1.73m2. Kidney failure is indicated at less than 15 mL/min/1.73m2. Performed By: #### 1 4122699, 0685555, 2789689, 1104339 ####[facility] [address] [place] [address] Auto Diffon 12-18-2022 Basophils/100 WBC (Bld) 0.4 % Normal 0.0-2.0 [facility] Comment on above: Order Comment: Order Added by Discern Expert. Performed By: #### 2 719283, 8764246 ####[facility] [address] [place] [address] Basophils/Leukocytes Auto (Bld) [Pure # fraction] 0.1 E9/L Normal 0.0-0.2 [facility] Comment on above: Order Comment: Order Added by Discern Expert. Performed By: #### 2 175776, 5470418 ####[address] [address] Eosinophils/100 WBC (Bld) 2.8 % Normal 0.0-8.0 [facility] Comment on above: Order Comment: Order Added by Discern Expert. Performed By: #### 2 553543, 5892734 ####[address] [address] Eosinophils/Leukocytes Auto (Bld) [Pure # fraction] 0.4 E9/L Normal 0.0-0.5 [facility] Comment on above: Order Comment: Order Added by Discern Expert. Performed By: #### 2 262848, 5113490 ####[address] [address] Lymphocytes/100 WBC (Bld) 9.0 % Low 14.0-50.0 [facility] Comment on above: Order Comment: Order Added by Discern Expert. Performed By: #### 2 264986, 9311520 ####[address] [address] Lymphocytes/Leukocytes Auto (Bld) [Pure # fraction] 1.3 E9/L Normal 1.0-4.0 [facility] Comment on above: Order Comment: Order Added by Discern Expert. Performed By: #### 2 281491, 1781895 ####[address] [address] Monocytes/100 WBC (Bld) 8.3 % Normal 4.0-14.0 [facility] Comment on above: Order Comment: Order Added by Discern Expert. Performed By: #### 2 482388, 4419858 ####[facility] [address] [place] [address] Monocytes/Leukocytes Auto (Bld) [Pure # fraction] 1.3 E9/L High 0.2-1.0 [facility] Comment on above: Order Comment: Order Added by Discern Expert. Performed By: #### 2 763724, 0745374 ####[address] [address] Neutrophils/100 WBC (Bld) 79.5 % High 36.0-75.0 [facility] Comment on above: Order Comment: Order Added by Discern Expert. Performed By: #### 2 401269, 3578357 ####[address] [address] Neutrophils/Leukocytes Auto (Bld) [Pure # fraction] 11.9 E9/L High 2.0-7.5 [facility] Comment on above: Order Comment: Order Added by Bethany Expert. Performed By: #### 2 648205, 1730397 ####[address] [address] Basophils/100 WBC (Bld) 0.6 % Normal 0.0-2.0 [facility] Comment on above: Order Comment: Order Added by Bethany Expert. Performed By: #### 1 0833125, 7913836, 87811381, 5582257, 81783859, 82413848, 2349420 ####[address] [address] Basophils/Leukocytes Auto (Bld) [Pure # fraction] 0.1 E9/L Normal 0.0-0.2 [facility] Comment on above: Order Comment: Order Added by Discern Expert. Performed By: #### 1 0234813, 5682570, 78641052, 7467862, 20487005, 62240708, 0772213 ####[address] [address] Eosinophils/100 WBC (Bld) 2.0 % Normal 0.0-8.0 [facility] Comment on above: Order Comment: Order Added by Bethany Expert. Performed By: #### 1 5391556, 2164052, 68445742, 6769002, 41236762, 19038014, 0852943 ####[facility] [address] [place] [address] Eosinophils/Leukocytes Auto (Bld) [Pure # fraction] 0.3 E9/L Normal 0.0-0.5 [facility] Comment on above: Order Comment: Order Added by Discern Expert. Performed By: #### 1 3270739, 8272419, 05737798, 8789490, 73821746, 21902410, 5515741 ####[address] [place] [address] Lymphocytes/100 WBC (Bld) 7.6 % Low 14.0-50.0 [facility] Comment on above: Order Comment: Order Added by Discern Expert. Performed By: #### 1 5731628, 9042322, 61898950, 2076455, 55336656, 32789394, 7197613 ####[address] [address] Lymphocytes/Leukocytes Auto (Bld) [Pure # fraction] 1.3 E9/L Normal 1.0-4.0 [facility] Comment on above: Order Comment: Order Added by Discern Expert. Performed By: #### 1 5780258, 6305640, 20370845, 8370742, 69606235, 75502832, 0123791 ####[address] [address] Monocytes/100 WBC (Bld) 7.8 % Normal 4.0-14.0 [facility] Comment on above: Order Comment: Order Added by Discern Expert. Performed By: #### 1 0209577, 7804405, 83178068, 8840082, 11613458, 96592092, 9319060 ####[address] [place] [address] Monocytes/Leukocytes Auto (Bld) [Pure # fraction] 1.3 E9/L High 0.2-1.0 [facility] Comment on above: Order Comment: Order Added by Discern Expert. Performed By: #### 1 2081030, 0001327, 99332066, 6020775, 13505182, 99107436, 0695554 ####[facility] [address] [place] [address] Neutrophils/100 WBC (Bld) 82.0 % High 36.0-75.0 [facility] Comment on above: Order Comment: Order Added by Discern Expert. Performed By: #### 1 9944327, 5306729, 22544686, 6476578, 40574839, 63108858, 2309569 ####[facility] [address] [place] [address] Neutrophils/Leukocytes Auto (Bld) [Pure # fraction] 13.7 E9/L High 2.0-7.5 [facility] Comment on above: Order Comment: Order Added by Discern Expert. Performed By: #### 1 7170757, 7862928, 32541688, 9410383, 36616180, 49702668, 5916816 ####[facility] [address] [place] [address] BMPon 12-18-2022 Creatinine [Mass/Vol] 1.6 mg/dL High 0.5-1.3 [facility] Comment on above: Performed By: #### 2 077954, 4144676, 4362326838, 18413313, 48868234 ####[facility] [address] [place] [address] Urea nitrogen [Mass/Vol] 47 mg/dL High 5-21 [facility] Comment on above: Performed By: #### 2 362735, 0886940, 5832477296, 11601222, 10903679 ####[facility] [address] [place] [address] Urea nitrogen/Creatinine [Mass ratio] 29 No Units High 10-20 [facility] Comment on above: Performed By: #### 2 315921, 5919024, 0254291052, 36591278, 17357793 ####[facility] [address] [place] [address] Anion gap [Moles/Vol] 12 mmol/L Normal 6-16 [facility] Comment on above: Performed By: #### 2 767598, 2093412, 8958050700, 02430730, 17512770 ####[facility] [address] [place] [address] Calcium [Mass/Vol] 8.7 mg/dL Low 8.9-11.1 [facility] Comment on above: Performed By: #### 2 675249, 5684057, 6138139367, 90460979, 26113787 ####[facility] [address] [place] [address] Chloride [Moles/Vol] 97 mmol/L Low 101-111 [place] Comment on above: Performed By: #### 2 723385, 4173036, 5979795270, 33684240, 76857955 ####[facility] [address] [place] [address] CO2 [Moles/Vol] 32 mmol/L High 21-31 [facility] Comment on above: Performed By: #### 2 762474, 4593926, 0791539289, 55526798, 91361674 ####[facility] [address] [place] [address] Glucose [Mass/Vol] 131 mg/dL Normal 55-199 [facility] Comment on above: Result Comment: If t his glucose result represents a fasting glucose, interpretation should refer to the following reference range: 55-99 mg/dL Performed By: #### 2 070596, 7757135, 6234882113, 43450898, 25267265 ####[facility] [address] [place] [address] Potassium [Moles/Vol] 3.7 mmol/L Normal 3.5-5.3 [facility] Comment on above: Performed By: #### 2 472728, 9944549, 3125360664, 27413246, 34648924 ####[facility] [address] [place] [address] Sodium [Moles/Vol] 137 mmol/L Normal 135-145 [facility] Comment on above: Performed By: #### 2 196544, 0631187, 4506900859, 39480635, 63859806 ####[facility] [address] [place] [address] Creatinine [Mass/Vol] 1.8 mg/dL High 0.5-1.3 [facility] Comment on above: Performed By: #### 1 5271864, 1422228, 39223254, 8775888, 79958655, 35805969, 1038299 ####[facility] [address] [place] [address] Urea nitrogen [Mass/Vol] 49 mg/dL High 5-21 [facility] Comment on above: Performed By: #### 1 3601017, 6152749, 24365750, 3368911, 48444874, 56687391, 8106433 ####[facility] [address] [place] [address] Urea nitrogen/Creatinine [Mass ratio] 27 No Units High 10-20 [facility] Comment on above: Performed By: #### 1 9627838, 5725018, 32113015, 1489550, 27920223, 75892005, 7030717 ####[facility] [address] [place] [address] Anion gap [Moles/Vol] 18 mmol/L High 6-16 [facility] Comment on above: Performed By: #### 1 7171711, 8975211, 19013998, 6020126, 70560808, 25675104, 1349418 ####[facility] [address] [place] [address] Calcium [Mass/Vol] 9.3 mg/dL Normal 8.9-11.1 [facility] Comment on above: Performed By: #### 1 4055787, 2233152, 02470983, 2537774, 61923016, 36715396, 0966963 ####[facility] [address] [place] [address] Chloride [Moles/Vol] 93 mmol/L Low 101-111 [facility] Comment on above: Performed By: #### 1 7168926, 3103168, 81916298, 9329956, 99086386, 10906918, 6427037 ####[facility] [address] [place] [address] CO2 [Moles/Vol] 29 mmol/L Normal 21-31 [facility] Comment on above: Performed By: #### 1 1979957, 2449186, 11103970, 8425453, 33999440, 48628323, 3610809 ####[facility] [address] [place] [address] Glucose [Mass/Vol] 137 mg/dL Normal 55-199 [facility] Comment on above: Result Comment: If t his glucose result represents a fasting glucose, interpretation should refer to the following reference range: 55-99 mg/dL Performed By: #### 1 8918346, 4339056, 90032997, 6590678, 69154953, 59967797, 7841514 ####[facility] [address] [place] [address] Potassium [Moles/Vol] 4.0 mmol/L Normal 3.5-5.3 [facility] Comment on above: Performed By: #### 1 5369128, 4975125, 84940376, 9818438, 05878384, 37235349, 7943477 ####[facility] [address] [place] [address] Sodium [Moles/Vol] 136 mmol/L Normal 135-145 [facility] Comment on above: Performed By: #### 1 3562944, 2646079, 26337809, 3265793, 54874873, 26638339, 2646166 ####[facility] [address] [place] [address] BNPon 12-18-2022 Int Ctr BNP Pass Normal [facility] Comment on above: Performed By: #### 1 9855510, 5026757, 20061405, 3227202, 69549455, 61506300, 7647293 ####[facility] [address] [place] [address] Natriuretic peptide B (Bld) [Mass/Vol] 219 pg/mL High 5-80 [facility] Comment on above: Performed By: #### 1 2210830, 2154654, 68333679, 9136013, 75496288, 50476980, 4921973 ####[facility] [address] [place] [address] CBC w/ Auto Diffon Erythrocyte distribution width (RBC) [Ratio] 14.8 % High 10.9-14.2 [facility] Comment on above: Performed By: #### 2 634315, 8659464 ####[address] [address] Hematocrit (Bld) [Volume fraction] 37.8 % Normal 37.7-49.0 [facility] [facility] Comment on above: Performed By: #### 2 293138, 0900271 ####[address] [address] Hemoglobin (Bld) [Mass/Vol] 12.7 g/dL Low 13.5-17.5 [facility] Comment on above: Performed By: #### 2 051704, 7291143 ####[address] [address] MCH (RBC) [Entitic mass] 28.3 pg Normal 27.0-34.0 [facility] Comment on above: Performed By: #### 2 410291, 8055365 ####[address] [address] MCHC (RBC) [Mass/Vol] 33.6 g/dL Normal 31.4-36.0 [facility] Comment on above: Performed By: #### 2 814968, 0895903 ####[address] [address] MCV (RBC) [Entitic vol] 84.2 fL Normal 80.0-100.0 [facility] Comment on above: Performed By: #### 2 135771, 1729808 ####[address] [address] Platelet mean volume (Bld) [Entitic vol] 9.2 fL Normal 6.4-10.8 [facility] Comment on above: Performed By: #### 2 765443, 1764560 ####[address] [address] Platelets (Bld) [#/Vol] 219.0 E9/L Normal 150.0-500.0 [facility] Comment on above: Performed By: #### 2 645519, 2666998 ####[address] [address] RBC (Bld) [#/Vol] 4.5 E12/L Normal 4.3-5.9 [facility] Comment on above: Performed By: #### 2 118818, 9950559 ####[address] [address] WBC corrected for nucl RBC Auto (Bld) [#/Vol] 15.0 E9/L High 4.0-11.0 [facility] Comment on above: Performed By: #### 2 019480, 7140584 ####[address] [address] Erythrocyte distribution width (RBC) [Ratio] 14.9 % High 10.9-14.2 [facility] Comment on above: Performed By: #### 1 6496046, 5046756, 11070236, 9609787, 22293017, 01650290, 3072905 ####[address] [address] Hematocrit (Bld) [Volume fraction] 42.8 % Normal 37.7-49.0 [facility] Comment on above: Performed By: #### 1 2022990, 6766629, 16613889, 6612335, 94137722, 99278742, 2510120 ####[facility] [address] [place] [address] Hemoglobin (Bld) [Mass/Vol] 14.3 g/dL Normal 13.5-17.5 [facility] Comment on above: Performed By: #### 1 3657761, 3060821, 86720413, 4304586, 10003838, 03349064, 4730910 ####[facility] [address] [place] [address] MCH (RBC) [Entitic mass] 28.1 pg Normal 27.0-34.0 [facility] Comment on above: Performed By: #### 1 5550775, 8075108, 21643847, 2802436, 39073812, 12143606, 3795666 ####[address] [place] [address]357 MCHC (RBC) [Mass/Vol] 33.3 g/dL Normal 31.4-36.0 [facility] Comment on above: Performed By: #### 1 6184462, 7528496, 20182010, 3960681, 93571449, 79277996, 2598411 ####[facility] [address] [place] [address] MCV (RBC) [Entitic vol] 84.3 fL Normal 80.0-100.[address] [facility] Comment on above: Performed By: #### 1 5490437, 5092430, 32853309, 0971306, 62406405, 69048134, 7965932 ####[facility] [address] [place] [address] Platelet mean volume (Bld) [Entitic vol] 9.8 fL Normal 6.4-10.8 [facility] Comment on above: Performed By: #### 1 5873790, 0200939, 31886881, 4483331, 96328010, 79066126, 7728667 ####[address] [place] [address] Platelets (Bld) [#/Vol] 234.0 E9/L Normal 150.0-500.0 [facility] Comment on above: Performed By: #### 1 7999446, 6054067, 67814214, 2422790, 07246789, 05726932, 8482195 ####[facility] [address] [place] [address] RBC (Bld) [#/Vol] 5.1 E12/L Normal 4.3-5.9 [facility] Comment on above: Performed By: #### 1 3127829, 6066280, 26535209, 9510839, 87153403, 91249438, 1567642 ####[facility] [address] [place] [address] WBC corrected for nucl RBC Auto (Bld) [#/Vol] 16.7 E9/L High 4.0-11.0 [facility] Comment on above: Result Comment: Slid e reviewed by JENNIFER. Performed By: #### 1 6644325, 2383478, 60502293, 2689105, 30081534, 14415729, 6123669 ####[facility] [address] [place] [address] CHEMISTRYOrdered By: SYSTEM SYSTEM on 12-18-2022 Troponin I.cardiac [Mass/Vol] 18.90 pg/mL Normal 15.90 - 38.40 pg/mL [facility] Remisol Anion gap [Moles/Vol] 12 mmol/L Normal 6 - 16 mEq/L [facility] Remisol Calcium [Mass/Vol] 8.7 mg/dL Low 8.9 - 11. 1 mg/dL [facility] Remisol Chloride [Moles/Vol] 97 mmol/L Low 101 - 1 11 mmol/L [facility] Remisol CK [Catalytic activity/Vol] 55 [iU]/d Normal 14 - 261 Int._Unit/L [facility] Remisol CO2 [Moles/Vol] 32 mmol/L High 21 - 31 mmol/L [facility] Remisol Creatinine [Mass/Vol] 1.6 mg/dL High 0.5 - 1.3 mg/dL [facility] Remisol GFR/1.73 sq M.predicted among non-blacks MDRD (S/P/Bld) [Vol rate/Area] 44 mL/min/1.73 m2 Low >=59mL/min/ 1.73 m2 [facility] Chem S Glucose [Mass/Vol] 131 mg/dL Normal 55 - 199 mg/dL [facility] Remisol Potassium [Moles/Vol] 3.7 mmol/L Normal 3.5 - 5.3 mmol/L [facility] Remisol Procalcitonin 0.09 ng/mL Normal 0.00 - 0.50 ng/mL [facility] Remisol Sodium [Moles/Vol] 137 mmol/L Normal 135 - 145 mmol/L [facility] Remisol Troponin I.cardiac [Mass/Vol] 22.50 pg/mL Normal 15.90 - 38.40 pg/mL [facility] Remisol Urea nitrogen [Mass/Vol] 47 mg/dL High 5 - 21 mg/dL [facility] Remisol Urea nitrogen/Creatinine [Mass ratio] 29 mg/mg High 10 - 20 [facility] Remisol CHEMISTRYOrdered By: Yanet Apodaca on 12-18-2022 Troponin I.cardiac [Mass/Vol] 18.80 pg/mL Normal 15.90 - 38.40 pg/mL [facility] peptide B (Bld) [Mass/Vol] 219 pg/mL High 5 - 80 pg/mL [facility] HemeManSS CKon 12-18-2022 CK [Catalytic activity/Vol] 55 Int._Unit/L Normal 14-261 [facility] Comment on above: Performed By: #### 2 646190, 3050269, 2146555495, 49952663, 66766484 ####[facility] [address] [place] [address] COAGULATIONOrdered By: Rachael Apodaca on 12-18-2022 aPTT Coag (PPP) [Time] 30.6 s Normal 25.1 - 36.5 second(s) [facility] Auto Coag INR Coag (PPP) [Relative time] 1.1 {INR} Invalid Interpretation Code [facility] Auto Coag PT Coag (PPP) [Time] 12.5 s Normal 9.4 - 1 2.5 second(s) FT Auto Coag CT Head or Brain w/o Contras ton 12-18-2022 CT Head or Brain w/o Contrast Normal [facility] CT Spine Cervical w/o Contra ston 12-18-2022 CT Spine Cervical w/o Contrast Normal [facility] Capillary Glucose POCon 11-22 Glucose [Mass/Vol] 212 mg/dL High 55-99 [facility] Comment on above: Result Comment: Gareth GARDINER Performed By: #### 2 [id number] ####[facility] [address] [place] [address] Glucose [Mass/Vol] 97 mg/dL Normal 55-99 [facility] Comment on above: Result Comment: Yazmin bri Meter Performed By: #### 2 12068048 ####[facility] [address] [place] [address] Glucose [Mass/Vol] 119 mg/dL High 55-99 [facility] Comment on above: Result Comment: Gareth GARDINER Performed By: #### 2 97787423 ####[facility] [address] [place] [address] Glucose [Mass/Vol] 131 mg/dL High 55-99 [facility] Comment on above: Result Comment: Gareth GARDINER Performed By: #### 2 19510513 ####[facility] [address] [place] [address] Consent for Treatmenton 11-22 Consent for Treatment [id number]# 1.00CD:127 Normal [facility] ED Clinical Summaryon 2022 ED Clinical Summary Normal [facility] ED Note-Physicianon 12-19-19 23 ED Note-Physician Normal [facility] Comment on above: Result Comment: Elec tronically Signed By: Guilherme POTTS, Malcom\.br\Date and Time Signed: 12/18/22 04:33 EDT ED Patient Education Noteon 12-18-2022 ED Patient Education Note Normal [facility] ED Patient Summaryon 023 ED Patient Summary Normal [facility] ED Traumaon 12-18-2022 ED Trauma [id number]# 1.00CD:127 Normal [facility] HEMATOLOGYOrdered By: SYSTEM SYSTEM on 12-18-2022 [...] 34.0 pg [facility] HemeAutoSS MCHC (RBC) [Mass/Vol] 33.6 g/dL Normal 31.4 - 36.0 gm/dL [facility] HemeAutoSS MCV (RBC) [Entitic vol] 84.2 fL Normal 80.0 - 100.0 fL [facility] HemeAutoSS Platelet mean volume (Bld) [Entitic vol] 9.2 fL Normal 6.4 - 10.8 fL [facility] HemeAutoSS Platelets (Bld) [#/Vol] 219.0 E9/L Normal 150. 0 - 500.0 E9/L [facility] HemeAutoSS RBC (Bld) [#/Vol] 4.5 E12/L Normal 4.3 - 5.9 E12/L [facility] HemeAutoSS WBC corrected for nucl RBC Auto (Bld) [#/Vol] 15.0 E9/L High 4.0 - 11.0 E9/L [facility] HemeAutoSS Insurance Correspondence Off iceon 12-18-2022 Insurance Correspondence Office [id number]#1 .00CD:127 Normal [facility] Interdisciplinary Note - Santosh e Manageron 12-18-2022 Interdisciplinary Note - Visor Installer [facility] Comment on above: Result Comment: Elec tronically Signed By: Lucero Watson\.br\Date and Time Signed: 12/18/22 14:57 EDT Interdisciplinary Note - Dejuan singon 12-18-2022 Interdisciplinary Note - Nursing Patient he is confused and he does not able to answer my questions. informed staff in [facility] to send current medication list in fax.3N Normal [facility] Interdisciplinary Note - PTo n 12-18-2022 Interdisciplinary Note - PT Normal [facility] Laboratory - Microbiology an d Antimicrobial susceptibilityOrdered By: Karen Vergara on 12-18-2022 Bacteria identified Cx Nom (U) 10,000 cfu/ml Staphylococcus species Continuing incubation [facility] Monitor Recordon 12-18-2022 Monitor Record [id number]# 1.00CD:127 Normal [facility] No Panel InformationOrdered By: Karen Vergara on 12-18-2022 Blood Culture Charcoal Streptococcus spe cies Staphylococcus species coagulase negative In 1 of 2 blood culture bottles drawn. Isolated from aerobic bottle Preliminary gram stain results of gram positive cocci in clusters Result called to Dr. Mckinney by and results read back for confirmation on 12/19/2022 09:39:39 [facility] No Panel InformationOrdered By: [facility] on 12-18-2022 Blood Culture Charcoal No growth at 2 da ys. Final to follow at 7 days. [facility] PT & PTTon 12-18-2022 aPTT Coag (PPP) [Time] 30.6 second(s) Normal 25.1-36.5 [facility] Comment on above: Result Comment: Para [...] the same coagulation reagent and instrumentation as [facility]. Currently there are no coagulation studies available worldwide for children to 14 days, and no normal ranges. Heparin therapeutic range (represented by Anti-Factor Xa activity of 0.2 - 0.4 U/mL) corresponds to PTT of 56.6 - 109.0 sec. Performed By: #### 1 1034927, 3060597, 87183132, 6104724, 37133863, 42688610, 2553406 ####[facility] [address] [place] [address] INR Coag (PPP) [Relative time] 1.1 {INR} Invalid Interpretation Code [facility] Comment on above: Result Comment: INR results are specifically intended to assess patients stabilized on long-term Anticoagulation therapy suggested INR?s ?Less Intensive Anticoagulation? 2.0 ? 3.0Conventional Range 3.0 ? 4.5 Performed By: #### 1 9364061, 8692377, 82887749, 7011240, 97725214, 20858788, 6583774 ####[facility] [address] [place] [address] PT Coag (PPP) [Time] 12.5 second(s) Normal 9.4-12.5 [facility] Comment on above: Result Comment: 15 [...] the same coagulation reagent and instrumentation as [facility]. Currently there are no coagulation studies available worldwide for children to 14 days, and no normal ranges. Performed By: #### 1 8499011, 9649892, 62164251, 6246627, 86474260, 61470141, 7818309 ####[facility] [address] [place] [address] Procalcitoninon 12-18-2022 Procalcitonin .09 ng/mL Normal .00-.50 [facility] Comment on above: Result Comment: <0.5 [...] to 24 hours. Performed By: #### 2 894551, 5703753, 0105516748, 37183534, 63083118 ####[facility] [address] [place] [address] RAD - Preliminary Cat Scan R eporton 12-18-2022 RAD - Preliminary Cat Scan Report [id number]# 1.00CD:127 Normal [facility] Troponin 0 Hr.on 12-18-2022 Troponin I.cardiac [Mass/Vol] 23.50 pg/mL Normal 15.90-38.40 [facility] Comment on above: Result Comment: The 95% CI (Confidence Interval) PPV (Positive Predictive Value) for myocardial infarction in females is 38 pg/mL, in males 51 pg/mL. The results should be used in conjunction with clinical conditions of myocardial infarction.([employer] High Sensitivity Troponin I Instructions For Use, [employer], December 2017) Performed By: #### 1 2599037, 7912504, 96204330, 5939561, 13311417, 64403332, 8567488 ####[facility] [address] [place] [address] Troponin 3 Hr.on 12-18-2022 Troponin I.cardiac [Mass/Vol] 18.80 pg/mL Normal 15.90-38.40 [facility] Comment on above: Result Comment: The 95% CI (Confidence Interval) PPV (Positive Predictive Value) for myocardial infarction in females is 38 pg/mL, in males 51 pg/mL. The results should be used in conjunction with clinical conditions of myocardial infarction.([employer] High Sensitivity Troponin I Instructions For Use, [employer], December 2017) Performed By: #### 1 2656698 ####[facility] [address] [place] [address] Troponin 6 Hr.on 12-18-2022 Troponin I.cardiac [Mass/Vol] 22.50 pg/mL Normal 15.90-38.40 [facility] Comment on above: Result Comment: The 95% CI (Confidence Interval) PPV (Positive Predictive Value) for myocardial infarction in females is 38 pg/mL, in males 51 pg/mL. The results should be used in conjunction with clinical conditions of myocardial infarction.(Access High Sensitivity Troponin I Instructions For Use, [employer], December 2017) Performed By: #### 2 943834, 7965866, 4706783757, 42851277, 33862456 ####[facility] [address] [place] [address] Troponin 9 Hr.on 12-18-2022 Troponin I.cardiac [Mass/Vol] 18.90 pg/mL Normal 15.90-38.40 [facility] Comment on above: Result Comment: The 95% CI (Confidence Interval) PPV (Positive Predictive Value) for myocardial infarction in females is 38 pg/mL, in males 51 pg/mL. The results should be used in conjunction with clinical conditions of myocardial infarction.(Access High Sensitivity Troponin I Instructions For Use, [employer], December 2017) Performed By: #### 1 6196391 ####[facility] [address] [place] [address] UA With Cult Reflexon 2022 Bacteria LM Ql (Urine sed) TRACE Normal Trace [facility] Comment on above: Performed By: #### 1 3022605, 4246329 ####[address] [address] Bilirubin Ql (U) Negative Normal Negative [facility] Comment on above: Performed By: #### 1 7535179, 6143302 ####[address] [address] Clarity (U) CLEAR Normal Clear [facility] Comment on above: Performed By: #### 1 5881236, 5252281 ####[address] [address] Color (U) YELLOW Normal Yellow [facility] Comment on above: Performed By: #### 1 8057716, 4222771 ####[facility] [address] [place] [address] Epithelial cells.squamous LM.HPF (Urine sed) [#/Area] 0-2 Normal 0-2 [facility] Comment on above: Performed By: #### 1 7393238, 5149443 ####[address] [address] Glucose Test strip (U) [Mass/Vol] Negative Normal Negative [facility] Comment on above: Performed By: #### 1 3937041, 7886385 ####[facility] [address] [place] [address] Hemoglobin Ql (U) TRACE Abnormal Negative [facility] Comment on above: Performed By: #### 1 5398473, 2864481 ####[facility] [address] [place] [address] Ketones (U) [Mass/Vol] Negative Normal Negative [facility] Comment on above: Performed By: #### 1 6756286, 6608044 ####[facility] [address] [place] [address] [place].plasma/[place].R BC (Bld) [Mass ratio] 0-3 Normal 0-3 [facility] Comment on above: Performed By: #### 1 8510576, 4917825 ####[facility] [address] [place] [address] Nitrite Ql (U) Negative Normal Negative [facility] Comment on above: Performed By: #### 1 8476716, 2006555 ####[facility] [address] [place] [address] pH (U) 6.5 [pH] Invalid Interpretation Code 5.0-9.0 [facility] Comment on above: Performed By: #### 1 1171789, 8935597 ####[facility] [address] [place] [address] Protein (U) [Mass/Vol] Negative Normal Negative [facility] Comment on above: Performed By: #### 1 3178284, 1661396 ####[facility] [address] [place] [address] Specific gravity (U) [Rel density] 1.020 Invalid Interpretation Code 1.005-1.030 [facility] Comment on above: Performed By: #### 1 0716120, 1699919 ####[facility] [address] [place] [address] Type of Urine collection method Clean Catch Normal [facility] Comment on above: Performed By: #### 1 5631191, 2262505 ####[facility] [address] [place] [address] Urobilinogen Qn (U) 0.2 {Lei'U}/dL Normal 0.0-1.0 [facility] Comment on above: Performed By: #### 1 2485116, 5551982 ####[facility] [address] [place] [address] WBC Auto Ql (U) 3+ Abnormal Negative [facility] Comment on above: Performed By: #### 1 5093552, 9625456 ####[facility] [address] [place] [address] WBC LM.HPF (Urine sed) [#/Area] /[HPF] Abnormal 0-5 [facility] Comment on above: Performed By: #### 1 9923604, 4809595 ####[facility] [address] [place] [address] URINALYSISOrdered By: Houston Castillo on 12-18-2022 Bacteria LM Ql (Urine sed) Trace /HPF Normal Trace/HPF [facility] UA Auto SS Bilirubin Ql (U) Negative (12/18/22 4:45 PM) Normal Negative [facility] UA Auto SS Clarity (U) Clear (12/18/22 4:45 PM) Normal Clear [facility] UA Auto SS Color (U) Yellow (12/18/22 4:45 PM) Normal Yellow [facility] UA Auto SS Epithelial [...] PM) Normal Negative [facility] UA Auto SS [place].plasma/[place].R BC (Bld) [Mass ratio] 0-3 /HPF Normal 0-3/HPF [facility] UA Au to SS Nitrite Ql (U) Negative (12/18/22 4:45 PM) Normal Negative [facility] UA Auto SS pH (U) 6.5 *NA* (12/18/22 4:45 PM) Invalid Interpretation Code 5.0 - 9.0 [facility] UA Auto SS Protein (U) [Mass/Vol] Negative (12/18/22 4:45 PM) Normal Negative [facility] UA Auto SS Specific gravity (U) [Rel density] 1.020 *NA* (12/18/22 4:45 PM) Invalid Interpretation Code 1.005 - 1.030 [facility] UA Auto SS UA Spec Desc Clean Catch (12/18/22 4:45 PM) Normal [facility] UA Auto SS Urobilinogen Qn (U) 0.0428586 {Lei'U}/dL Normal 0.0 - 1.0 EU/dL [facility] UA Auto SS WBC Auto Ql (U) 3+ *ABN* (12/18/22 4:45 PM) Invalid Interpretation Code Negative [facility] UA Auto SS WBC LM.HPF (Urine sed) [#/Area] /[HPF] Invalid Interpretation Code 0-5/HPF [facility] UA Auto SS XR Chest Single Viewon 12-18 XR Chest Single View Normal [facility] XR Pelvis 1 or 2 Viewson XR Pelvis 1 or 2 Views Normal Fi [place] eGFRon 12-18-2022 GFR/1.73 sq M.predicted among non-blacks MDRD (S/P/Bld) [Vol rate/Area] 44 mL/min/1.73 m2 Low >=59 [facility] Comment on above: Order Comment: Order added by Discern Expert. Result Comment: Outpatient Physical Therapist earnest kidney disease could be indicated at eGFR's of less than 60 mL/min/1.73m2. Kidney failure is indicated at less than 15 mL/min/1.73m2. Performed By: #### 2 395885, 3476916, [id number], 93916229, 83235778 ####[facility] [address] [place] [address] GFR/1.73 sq M.predicted among non-blacks MDRD (S/P/Bld) [Vol rate/Area] 38 mL/min/1.73 m2 Low >=59 [facility] Comment on above: Order Comment: Order added by Discern Expert. Result Comment: Outpatient Physical Therapist earnest kidney disease could be indicated at eGFR's of less than 60 mL/min/1.73m2. Kidney failure is indicated at less than 15 mL/min/1.73m2. Performed By: #### 1 8930469, 9381375, 30164514, 7893735, 47144641, 54654536, 7389163 ####[facility] [address] [place] [address] Capillary Glucose POCon 11-22 Glucose [Mass/Vol] 165 mg/dL High [address] [place] [address] Comment on above: Result Comment: Yazmin bri Meter Performed By: #### 2 30211509 ####[facility] [address] [place] [address] Glucose [Mass/Vol] 184 mg/dL [address] Comment on above: Performed By: #### 2 09154639 ####[facility] [address] [place] [address] Capillary Glucose POCon 11-22 Glucose [Mass/Vol] 184 mg/dL [address] Comment on above: Result Comment: Yazmin bri Meter Performed By: #### 2 95091176 ####[facility] [address] [place] [address] Glucose [Mass/Vol] 141 mg/dL [address] Comment on above: Result Comment: Yazmin bri Meter Performed By: #### 2 64813772 ####[facility] [address] [place] [address] Capillary Glucose POCon 11-22 Glucose [Mass/Vol] 183 mg/dL [address] Comment on above: Result Comment: Yazmin bri Meter Performed By: #### 2 11385089 ####[facility] [address] [place] [address] Glucose [Mass/Vol] 147 mg/dL [address] Comment on above: Result Comment: Yazmin bri Meter Performed By: #### 2 30824587 ####[facility] [address] [place] [address] Capillary Glucose POCon 11-22 Glucose [Mass/Vol] 188 mg/dL High [facility] Comment on above: Result Comment: Yazmin bri Meter Performed By: #### 2 66457321 ####[facility] [address] [place] [address] Glucose [Mass/Vol] 162 mg/dL High [facility] Comment on above: Result Comment: Yazmin bri Meter Performed By: #### 2 63239154 ####[facility] [address] [place] [address] Auto Diffon 12-13-2022 Basophils/100 WBC (Bld) 0.0 % Normal 0.0-2.0 [facility] Comment on above: Order Comment: Order Added by Discern Expert. Performed By: #### 1 5273331, 4863533, 615839669, 4196316, 2643535 ####[facility] [address] [place] [address] Basophils/Leukocytes Auto (Bld) [Pure # fraction] 0.0 E9/L Normal 0.0-0.2 [facility] Comment on above: Order Comment: Order Added by Discern Expert. Performed By: #### 1 6796674, 3006488, 883850989, 3101975, 5980300 ####[facility] [address] [place] [address] Eosinophils/100 WBC (Bld) 7.6 % Normal 0.0-8.0 [facility] Comment on above: Order Comment: Order Added by Discern Expert. Performed By: #### 1 8079503, 5057626, 040023850, 8875858, 2402574 ####[facility] [address] [place] [address] Eosinophils/Leukocytes Auto (Bld) [Pure # fraction] 1.0 E9/L High 0.0-0.5 [facility] Comment on above: Order Comment: Order Added by Discern Expert. Performed By: #### 1 5142879, 3888356, 661640256, 0885556, 2190068 ####[address] [place] [address] Lymphocytes/100 WBC (Bld) 10.3 % Low 14.0-50.0 [facility] Comment on above: Order Comment: Order Added by Discern Expert. Performed By: #### 1 0185582, 1689842, 852657076, 8009795, 7007970 ####[address] [place] [address] Lymphocytes/Leukocytes Auto (Bld) [Pure # fraction] 1.3 E9/L Normal 1.0-4.0 [facility] [facility] Comment on above: Order Comment: Order Added by Bethany Expert. Performed By: #### 1 5182932, 9896229, 418105382, 6234985, 9393123 ####[address] [address] Monocytes/100 WBC (Bld) 9.6 % Normal 4.0-14.0 [facility] Comment on above: Order Comment: Order Added by Bethany Expert. Performed By: #### 1 3188416, 0897842, 428298222, 2291310, 9074492 ####[address] [address] Monocytes/Leukocytes Auto (Bld) [Pure # fraction] 1.2 E9/L High 0.2-1.0 [facility] Comment on above: Order Comment: Order Added by Bethany Expert. Performed By: #### 1 6025422, 8120050, 640620561, 3580746, 0906522 ####[address] [address] Neutrophils/100 WBC (Bld) 72.5 % Normal 36.0-75.0 [facility] Comment on above: Order Comment: Order Added by Bethany Expert. Performed By: #### 1 8882609, 6665330, 213484960, 5399335, 2161778 ####[facility] [address] [place] [address] Neutrophils/Leukocytes Auto (Bld) [Pure # fraction] 9.0 E9/L High 2.0-7.5 [facility] Comment on above: Order Comment: Order Added by Discern Expert. Performed By: #### 1 7100494, 2220765, 167985986, 4956785, 7572498 ####[address] [place] [address] CBC w/ Auto Diffon 3 Erythrocyte distribution width (RBC) [Ratio] 15.0 % High 10.9-14.2 [facility] Comment on above: Performed By: #### 1 8251272, 2672218, 113480376, 7585829, 6919403 ####[address] [place] [address] Hematocrit (Bld) [Volume fraction] 45.2 % Normal 37.7-49.0 [facility] Comment on above: Performed By: #### 1 0917530, 7779194, 675481749, 1822947, 3427745 ####[address] [place] [address] Hemoglobin (Bld) [Mass/Vol] 14.8 g/dL Normal 13.5-17.5 [facility] Comment on above: Performed By: #### 1 1246821, 2185598, 028137156, 6527511, 7897004 ####[address] [place] [address] MCH (RBC) [Entitic mass] 27.8 pg Normal 27.0-34.0 [facility] Comment on above: Performed By: #### 1 9224778, 6185938, 434754253, 7895014, 9167222 ####[address] [place] [address] MCHC (RBC) [Mass/Vol] 32.7 g/dL Normal 31.4-36.0 [facility] Comment on above: Performed By: #### 1 1116611, 8492966, 696197616, 7238502, 1061392 ####[address] [place] [address] MCV (RBC) [Entitic vol] 85.0 fL Normal 80.0-100.[address] [facility] Comment on above: Performed By: #### 1 8071991, 0950503, 858161185, 1527518, 2038509 ####[address] [address] Platelet mean volume (Bld) [Entitic vol] 9.4 fL Normal 6.4-10.8 [facility] Comment on above: Performed By: #### 1 5493823, 5869612, 720879217, 3313131, 2539066 ####[address] [address] Platelets (Bld) [#/Vol] 193.0 E9/L Normal 150.0-500.0 [facility] Comment on above: Performed By: #### 1 7442347, 8209828, 056285239, 8758704, 4360244 ####[address] [address] RBC (Bld) [#/Vol] 5.3 E12/L Normal 4.3-5.9 [facility] Comment on above: Performed By: #### 1 0437436, 3487241, 868133703, 0983313, 1568013 ####[address] [address] WBC corrected for nucl RBC Auto (Bld) [#/Vol] 12.5 E9/L High 4.0-11.0 [facility] Comment on above: Performed By: #### 1 3241070, 8185918, 748541266, 7207720, 1306604 ####[address] [address] CMPon 12-13-2022 Albumin [Mass/Vol] 3.6 g/dL Normal 3.3-5.0 [facility] Comment on above: Performed By: #### 1 4394177, 8477656, 953934477, 5632524, 2619426 ####[facility] [address] [place] [address] Albumin/Globulin (S) [Mass conc ratio] 1.0 Low 1.1-2.2 [facility] Comment on above: Performed By: #### 1 9372188, 2745993, 321395054, 6213037, 7637357 ####[facility] [address] [place] [address] ALP [Catalytic activity/Vol] 49 Int._Unit/L Normal 21-98 [facility] Comment on above: Performed By: #### 1 5030664, 5138949, 014542457, 1098401, 4751913 ####[address] [place] [address] ALT No additional P-5'-P [Catalytic activity/Vol] 21 Int._Unit/L Normal 6-46 [facility] Comment on above: Performed By: #### 1 8092671, 3060885, 651112225, 6141510, 4282678 ####[facility] [address] [place] [address] Anion gap [Moles/Vol] 16 mmol/L Normal 6-16 [facility] Comment on above: Performed By: #### 1 0870166, 5904877, 146349245, 5125859, 6863248 ####[address] [place] [address] AST [Catalytic activity/Vol] 21 Int._Unit/L Normal 5-43 [facility] Comment on above: Performed By: #### 1 8121650, 8852414, 475904588, 5195275, 5060545 ####[facility] [address] [place] [address] Bilirubin [Mass/Vol] 0.6 mg/dL Normal 0.0-1.1 [place] Comment on above: Performed By: #### 1 5638448, 4886307, 502064580, 4124812, 0156520 ####[facility] [address] [facility] [place] [address] Calcium [Mass/Vol] 9.4 mg/dL Normal 8.9-11.1 [facility] Comment on above: Performed By: #### 1 3591998, 9685650, 137360180, 8639507, 9519715 ####[facility] [address] [place] [address] Chloride [Moles/Vol] 99 mmol/L Low 101-111 [facility] Comment on above: Performed By: #### 1 6293310, 6033940, 639487875, 4571677, 1807484 ####[facility] [address] [place] [address] CO2 [Moles/Vol] 31 mmol/L Normal 21-31 [facility] Comment on above: Performed By: #### 1 2344639, 4652521, 545845398, 6102954, 6410282 ####[facility] [address] [facility] [place] [address] Creatinine [Mass/Vol] 1.5 mg/dL High 0.5-1.3 [facility] Comment on above: Performed By: #### 1 1201169, 1136780, 241460280, 7436715, 0286481 ####[facility] [address] [place] [address] Globulin (S) [Mass/Vol] 3.7 g/dL Normal 1.4-4.[address] [facility] Comment on above: Performed By: #### 1 8805045, 1799484, 587753819, 3208287, 9535472 ####[facility] [address] [place] [address] Glucose [Mass/Vol] 128 mg/dL Normal 55-199 [facility] Comment on above: Result Comment: If t his glucose result represents a fasting glucose, interpretation should refer to the following reference range: 55-99 mg/dL Performed By: #### 1 4980368, 5903597, 153000141, 5103632, 0855226 ####[facility] [address] [place] [address] Potassium [Moles/Vol] 4.1 mmol/L Normal 3.5-5.3 [facility] Comment on above: Performed By: #### 1 4143204, 1094656, 683273270, 6525407, 1681140 ####[facility] [address] [place] [address] Protein [Mass/Vol] 7.3 g/dL Normal 6.0-7.8 [facility] Comment on above: Performed By: #### 1 6791660, 9806647, 153594637, 2177168, 7444839 ####[facility] [address] [place] [address] Sodium [Moles/Vol] 142 mmol/L Normal 135-145 [facility] Comment on above: Performed By: #### 1 1162160, 6274457, 207400178, 5561522, 4239951 ####[facility] [address] [place] [address] Urea nitrogen [Mass/Vol] 57 mg/dL High 5-21 [facility] Comment on above: Performed By: #### 1 4148606, 8377005, 842102253, 3325968, 9837619 ####[facility] [address] [place] [address] Urea nitrogen/Creatinine [Mass ratio] 38 No Units High 10-20 [facility] Comment on above: Performed By: #### 1 7336750, 3995607, 424034588, 1895433, 5202346 ####[facility] [address] [place] [address] Capillary Glucose POCon 07- Glucose [Mass/Vol] 256 mg/dL High 55-99 [facility] Comment on above: Result Comment: Yazmin bri Meter Performed By: #### 2 70350201 ####[facility] [address] [place] [address] Glucose [Mass/Vol] 152 mg/dL High 55-99 [facility] Comment on above: Result Comment: Yazmin bri Meter Performed By: #### 2 36354692 ####[facility] [address] [place] [address] AozY2kwi 12-13-2022 HbA1c (Bld) [Mass fraction] 6.5 % High <=5.9 [facility] Comment on above: Performed By: #### 1 0379805, 7376203, 834120463, 0616936, 5089207 ####[facility] [address] [place] [address] eGFRon 12-13-2022 GFR/1.73 sq M.predicted among non-blacks MDRD (S/P/Bld) [Vol rate/Area] 47 mL/min/1.73 m2 Low >=59 [facility] Comment on above: Order Comment: Order added by Discern Expert. Result Comment: Outpatient Physical Therapist earnest kidney disease could be indicated at eGFR's of less than 60 mL/min/1.73m2. Kidney failure is indicated at less than 15 mL/min/1.73m2. Performed By: #### 1 8381229, 0498684, 478595717, 1816488, 1442560 ####[facility] [address] [place] [address] Capillary Glucose POCon 11-22 Glucose [Mass/Vol] 212 mg/dL High 55-99 [facility] Comment on above: Result Comment: Yazmin bri Meter Performed By: #### 2 89233972 ####[facility] [address] [place] [address] Glucose [Mass/Vol] 161 mg/dL High 55-[address] [place] [address] Comment on above: Result Comment: Yazmin bri Meter Performed By: #### 2 18511389 ####[facility] [address] [place] [address] Capillary Glucose POCon 11-22 Glucose [Mass/Vol] 206 mg/dL High 55-99 [facility] Comment on above: Result Comment: Yazmin bri Meter Performed By: #### 2 89051814 ####[facility] [address] [place] [address] Glucose [Mass/Vol] 152 mg/dL [address] Comment on above: Result Comment: Yazmin bri Meter Performed By: #### 2 12360176 ####[facility] [address] [place] [address] Capillary Glucose POCon 11-22 Glucose [Mass/Vol] 140 mg/dL High [address] [place] [address] Comment on above: Result Comment: Yazmin bri Meter Performed By: #### 2 44738480 ####[facility] [address] [place] [address] Capillary Glucose POCon 11-21 Glucose [Mass/Vol] 243 mg/dL [address] Comment on above: Result Comment: Yazmin bri Meter Performed By: #### 2 22002891 ####[facility] [address] [place] [address] Glucose [Mass/Vol] 157 mg/dL [address] Comment on above: Result Comment: Yazmin bri Meter Performed By: #### 2 44330205 ####[facility] [address] [place] [address] Capillary Glucose POCon 11-21 Glucose [Mass/Vol] 181 mg/dL [address] Comment on above: Result Comment: Yazmin bri Meter Performed By: #### 2 44924600 ####[facility] [address] [place] [address] Capillary Glucose POCon 11-21 Glucose [Mass/Vol] 149 mg/dL [address] Comment on above: Result Comment: Yazmin bri Meter Performed By: #### 2 80747488 ####[facility] [address] [place] [address] Glucose [Mass/Vol] 164 mg/dL [address] Comment on above: Result Comment: Yazmin bri Meter Performed By: #### 2 34128595 ####[facility] [address] [place] [address] Capillary Glucose POCon 11-21 Glucose [Mass/Vol] 265 mg/dL High 55-99 [facility] Comment on above: Result Comment: Yazmin bri Meter Performed By: #### 2 88501757 ####[facility] [address] [place] [address] Glucose [Mass/Vol] 129 mg/dL High 55-99 [facility] Comment on above: Result Comment: Yazmin bri Meter Performed By: #### 2 36557201 ####[facility] [address] [place] [address] Family Medicine Office/Clini c Noteon 12-06-2022 Family Medicine Office/Clinic Note Normal [facility] Comment on above: Result Comment: Elec tronically Signed By: SHAISTA POTTS, Donta\.br\Date and Time Signed: 12/06/22 21:11 EDT Capillary Glucose POCon 11-21 Glucose [Mass/Vol] 196 mg/dL High 55- [facility] Comment on above: Result Comment: Yazmin bri Meter Performed By: #### 2 68678297 ####[facility] [address] [place] [address] Glucose [Mass/Vol] 159 mg/dL High 55-99 [facility] Comment on above: Result Comment: Yazmin bri Meter Performed By: #### 2 66330042 ####[facility] [address] [place] [address] Capillary Glucose POCon 11-21 Glucose [Mass/Vol] 195 mg/dL High 55-99 [facility] Comment on above: Result Comment: Gareth guerrero RN/ Performed By: #### 2 20937092 ####[facility] [address] [place] [address] Insurance Correspondence Off ice12-04-2022 Insurance Correspondence Office [id number]# 1.00CD:127 Normal [facility] Physician Orderon 12-03-2022 Physician Order [id number]# 1.00CD:127 Normal [facility] CHEMISTRYOrdered By: Lab ROP User on 12-02-2022 Glucose [Mass/Vol] 227 mg/dL High 55 - 99 mg/dL [facility] [place] Comment on above: Result Comment: Gareth GARDINER POC Device SN [id number] Invalid Interpretation Code [facility] Subsection POC User ID [id number] Invalid Interpretation Code [facility] Subsection POC Username KINGSTON JAMISON Invalid Interpretation Code [facility] Subsection Glucose [Mass/Vol] 127 mg/dL High 55 - 99 mg/dL [facility] Subsection Comment on above: Result Comment: Gareth GARDINER POC Device SN [id number] Invalid Interpretation Code FT POC Subsection POC User ID [id number] Invalid Interpretation Code [facility] Subsection POC Username TOYIN REYNOLDS Invalid Interpretation Code [facility] Subsection Capillary Glucose POCon 11-21 Glucose [Mass/Vol] 227 mg/dL High 55-99 [facility] Comment on above: Result Comment: Gareth GARDINER Performed By: #### 2 57848134 ####[facility] [address] [place] [address] Glucose [Mass/Vol] 127 mg/dL High 55-99 [facility] Comment on above: Result Comment: Gareth GARDINER Performed By: #### 2 96449957 ####[facility] [address] [place] [address] Coding Queryon 12-02-2022 Coding Query Normal [facility] Discharge Note-Nursingon Discharge Note-Nursing Normal [facility] Inpatient Clinical Summaryon 12-02-2022 Inpatient Clinical Summary Normal [facility] Inpatient Patient Summaryon 12-02-2022 Inpatient Patient Summary Normal [facility] Insurance Correspondence Off iceon 12-02-2022 Insurance Correspondence Office [id number]#1. 00CD:127 Normal [facility] Interdisciplinary Note - Santosh e Manageron 12-02-2022 Interdisciplinary Note - Visor Installer Normal [facility] Comment on above: Result Comment: Elec tronically Signed By: Lisa Weems RN\.br\Date and Time Signed: 12/02/22 09:31 EDT Monitor Recordon 12-02-2022 Monitor Record [id number]# 1.00CD:127 Normal [facility] Physician Orderon 12-02-2022 Physician Order [id number]# 1.00CD:127 Normal [facility] Progress Note-Physicianon Progress Note-Physician Normal F [facility] Comment on above: Result Comment: Elec tronically Signed By: Adeline COLEMAN\.br\Date and Time Signed: 12/01/22 18:43 EDT\.br\Electronically Co-Signed By: Juan Hdz DO\.br\Date and Time Co-Signed: 12/02/22 07:20 EDT Transfer Documentson 023 Transfer Documents [id number]# 1.00CD:127 Normal [facility] BMPon 12-01-2022 Anion gap [Moles/Vol] 13 mmol/L Normal 6-16 [facility] Comment on above: Performed By: #### 1 4625692, 4273151, 6020231, 1742518 ####[facility] [address] [place] [address] Calcium [Mass/Vol] 9.1 mg/dL Normal 8.9-11.1 [facility] Comment on above: Performed By: #### 1 4917688, 2655150, 9032017, 0355256 ####[facility] [address] [place] [address] Chloride [Moles/Vol] 102 mmol/L Normal 101-111 [place] Comment on above: Performed By: #### 1 8398373, 3671346, 3534417, 3236223 ####[facility] [address] [place] [address] CO2 [Moles/Vol] 28 mmol/L Normal 21-31 [facility] Comment on above: Performed By: #### 1 1231507, 5251714, 4194413, 7854811 ####[facility] [address] [place] [address] Creatinine [Mass/Vol] 1.3 mg/dL Normal 0.5-1.3 [facility] Comment on above: Performed By: #### 1 6528129, 3061775, 1426140, 6013956 ####[facility] [address] [place] [address] Glucose [Mass/Vol] 97 mg/dL Normal 55-199 [facility] Comment on above: Result Comment: If t his glucose result represents a fasting glucose, interpretation should refer to the following reference range: 55-99 mg/dL Performed By: #### 1 2946710, 0778817, 4339697, 8616226 ####[facility] [address] [facility] [place] [address] Potassium [Moles/Vol] 4.6 mmol/L Normal 3.5-5.3 [facility] Comment on above: Performed By: #### 1 7321632, 2086619, 8273179, 2914544 ####[facility] [address] [facility] [place] [address] Sodium [Moles/Vol] 138 mmol/L Normal 135-145 [facility] Comment on above: Performed By: #### 1 9760294, 9904795, 6870711, 6884306 ####[facility] [address] [facility] [place] [address] Urea nitrogen [Mass/Vol] 24 mg/dL High 5-21 [facility] Comment on above: Performed By: #### 1 4655822, 8566403, 5630733, 8684186 ####[facility] [address] [facility] [place] [address] Urea nitrogen/Creatinine [Mass ratio] 18 No Units Normal 10-20 [facility] Comment on above: Performed By: #### 1 4336285, 9583870, 8412801, 7992105 ####[facility] [address] [place] [address] CHEMISTRYOrdered By: Lab ROP User on 12-01-2022 Glucose [Mass/Vol] 114 mg/dL High 55 - 99 mg/dL [facility] [place] Subsection Comment on above: Result Comment: Gareth guerrero RN/ POC Device SN [id number] Invalid Interpretation Code [facility] POC Subsection POC User ID [id number] Invalid Interpretation Code [facility] Subsection POC Username NETO CHEEK Invalid Interpretation Code [facility] Subsection CHEMISTRYOrdered By: SYSTEM SYSTEM on 12-01-2022 Anion gap [Moles/Vol] 13 mmol/L Normal 6 - 16 mEq/L [facility] Remisol Calcium [Mass/Vol] 9.1 mg/dL Normal 8.9 - 11. 1 mg/dL [facility] Remisol Chloride [Moles/Vol] 102 mmol/L Normal 101 - 1 11 mmol/L FT Remisol CK [Catalytic activity/Vol] 211 [iU]/d Normal 14 - 261 Int._Unit/L [facility] Remisol CO2 [Moles/Vol] 28 mmol/L Normal 21 - 31 mmol/L [facility] Remisol Creatinine [Mass/Vol] 1.3 mg/dL Normal 0.5 - 1.3 mg/dL [facility] Remisol GFR/1.73 sq M.predicted among non-blacks MDRD (S/P/Bld) [Vol rate/Area] 56 mL/min/1.73 m2 Low >=59mL/min/ 1.73 m2 [facility] Chem S Glucose [Mass/Vol] 97 mg/dL Normal 55 - 199 mg/dL FT [facility] Magnesium [Mass/Vol] 2.1 mg/dL Normal 1.3 - 2 .4 mg/dL [facility] Potassium [Moles/Vol] 4.6 mmol/L Normal 3.5 - 5.3 mmol/L [facility] Remisol Sodium [Moles/Vol] 138 mmol/L Normal 135 - 145 mmol/L [facility] Remisol Urea nitrogen [Mass/Vol] 24 mg/dL High 5 - 21 mg/dL [facility] Urea nitrogen/Creatinine [Mass ratio] 18 mg/mg Normal 10 - 20 [facility] Remisol CKon 12-01-2022 CK [Catalytic activity/Vol] 211 Int._Unit/L Normal 14-261 [facility] Comment on above: Performed By: #### 1 3534033, 3325296, 2204322, 6404596 ####[facility] [address] [place] [address] Capillary Glucose POCon 11-21 Glucose [Mass/Vol] 114 mg/dL High 55-99 [facility] Comment on above: Result Comment: Gareth GARDINER Performed By: #### 2 77264443 ####[facility] [address] [place] [address] Glucose [Mass/Vol] 193 mg/dL High 55-99 [facility] Comment on above: Result Comment: Gareth GARDINER Performed By: #### 2 68678787 ####[facility] [address] [place] [address] Glucose [Mass/Vol] 203 mg/dL High 55-99 [facility] Comment on above: Result Comment: Gareth GARDINER Performed By: #### 2 68901000 ####[facility] [address] [place] [address] Glucose [Mass/Vol] 110 mg/dL High 55-99 [facility] Comment on above: Result Comment: Gareth GARDINER Performed By: #### 2 23101656 ####[facility] [address] [place] [address] Interdisciplinary Note - Santosh e Manageron 12-01-2022 Interdisciplinary Note - Visor Installer Pt is asleep in bed, no family present. Pt is accepted to [facility] side, pending precert at this time. Contact information provided and white board updated, CRM following Normal [facility] Comment on above: Result Comment: Elec tronically Signed By: Dank HAYDEN, Lisa\.candice\Date and Time Signed: 12/01/22 08:20 EDT Ionized Calciumon 12-01-2022 Calcium.ionized ISE [Mass/Vol] 4.8 mg/dL Invalid Interpretation Code 4.5-5.6 [facility] Comment on above: Result Comment: Perf ormed at: [facility] [id number] [place], [place] [id number] PhD Michael Cortes Performed By: #### 2 798941, 8166355, 7496495, 03645369, 05844795, 6192654, 65825593, 7765815, 95393330, 974161846, 0626498, 9537229 ####[facility] [address] [place] [address] Magnesiumon 12-01-2022 Magnesium [Mass/Vol] 2.1 mg/dL Normal 1.3-2.4 [place] Comment on above: Performed By: #### 1 7239904, 7325075, 1448964, 2972887 ####[facility] [address] [place] [address] Progress Note-Physicianon Progress Note-Physician Normal F [facility] Comment on above: Result Comment: Elec tronically Signed By: Pao POTTS, Lizeth\.br\Date and Time Signed: 12/01/22 12:41 EDT XR Abdomen 1 Viewon 12-02-19 XR Abdomen 1 View Normal [facility] eGFRon 12-01-2022 GFR/1.73 sq M.predicted among non-blacks MDRD (S/P/Bld) [Vol rate/Area] 56 mL/min/1.73 m2 Low >=59 [facility] Comment on above: Order Comment: Order added by Discern Expert. Result Comment: Outpatient Physical Therapist earnest kidney disease could be indicated at eGFR's of less than 60 mL/min/1.73m2. Kidney failure is indicated at less than 15 mL/min/1.73m2. Performed By: #### 1 7649993, 8763293, 6552673, 6314953 ####[facility] [address] [place] [address] BMPon 11-30-2022 Anion gap [Moles/Vol] 11 mmol/L Normal 6-16 [facility] Comment on above: Performed By: #### 2 092564, 9484444, 97958882 ####[facility] [address] [place] [address] Calcium [Mass/Vol] 9.0 mg/dL Normal 8.9-11.1 [facility] Comment on above: Performed By: #### 2 452562, 1317259, 19988124 ####[facility] [address] [place] [address] Chloride [Moles/Vol] 102 mmol/L Normal 101-111 [place] Comment on above: Performed By: #### 2 269412, 8621971, 23768320 ####[facility] [address] [place] [address] CO2 [Moles/Vol] 31 mmol/L Normal 21-31 [facility] Comment on above: Performed By: #### 2 867588, 4422597, 12911562 ####[facility] [address] [place] [address] Creatinine [Mass/Vol] 1.1 mg/dL Normal 0.5-1.3 [facility] Comment on above: Performed By: #### 2 632389, 0123726, 80915875 ####[facility] [address] [place] [address] Glucose [Mass/Vol] 114 mg/dL Normal 55-199 [facility] Comment on above: Result Comment: If t his glucose result represents a fasting glucose, interpretation should refer to the following reference range: 55-99 mg/dL Performed By: #### 2 924329, 8161422, 10579386 ####[facility] [address] [place] [address] Potassium [Moles/Vol] 3.4 mmol/L Low 3.5-5.3 [facility] Comment on above: Performed By: #### 2 170291, 5698721, 05885478 ####[facility] [address] [place] [address] Sodium [Moles/Vol] 141 mmol/L Normal 135-145 [facility] Comment on above: Performed By: #### 2 306576, 8467031, 33995059 ####[facility] [address] [place] [address] Urea nitrogen [Mass/Vol] 23 mg/dL High 5-21 [facility] Comment on above: Performed By: #### 2 269606, 7450961, 85690155 ####[facility] [address] [place] [address] Urea nitrogen/Creatinine [Mass ratio] 21 No Units High 10-20 [facility] Comment on above: Performed By: #### 2 540172, 2507259, 77498166 ####[facility] [address] [place] [address] CHEMISTRYOrdered By: SYSTEM SYSTEM on 11-30-2022 Anion gap [Moles/Vol] 11 mmol/L Normal 6 - 16 mEq/L [facility] Remisol Calcium [Mass/Vol] 9.0 mg/dL Normal 8.9 - 11. 1 mg/dL [facility] Chloride [Moles/Vol] 102 mmol/L Normal 101 - 1 11 mmol/L [facility] Remisol CO2 [Moles/Vol] 31 mmol/L Normal 21 - 31 mmol/L [facility] Remisol Creatinine [Mass/Vol] 1.1 mg/dL Normal 0.5 - 1.3 mg/dL [facility] Remisol GFR/1.73 sq M.predicted among non-blacks MDRD (S/P/Bld) [Vol rate/Area] 69 mL/min/1.73 m2 Normal >=59mL/min/ 1.73 m2 [facility] Chem S Glucose [Mass/Vol] 114 mg/dL Normal 55 - 199 mg/dL [facility] Magnesium [Mass/Vol] 1.8 mg/dL Normal 1.3 - 2 .4 mg/dL [facility] Potassium [Moles/Vol] 3.4 mmol/L Low 3.5 - 5.3 mmol/L [facility] Sodium [Moles/Vol] 141 mmol/L Normal 135 - 145 mmol/L [facility] Remisol Urea nitrogen [Mass/Vol] 23 mg/dL High 5 - 21 mg/dL [facility] Remisol Urea nitrogen/Creatinine [Mass ratio] 21 mg/mg High 10 - 20 [facility] Remisol Capillary Glucose POCon 11-21 Glucose [Mass/Vol] 194 mg/dL High 55-99 [facility] Comment on above: Result Comment: Gareth GARDINER Performed By: #### 2 [id number] ####[facility] [address] [place] [address] Glucose [Mass/Vol] 96 mg/dL Normal 55-99 [facility] Comment on above: Performed By: #### 2 [id number] ####[facility] [address] [place] [address] Glucose [Mass/Vol] 130 mg/dL High 55-99 [facility] Comment on above: Result Comment: Gareth guerrero RN/ Performed By: #### 2 [id number] ####[facility] [address] [place] [address] Glucose [Mass/Vol] 113 mg/dL High 55-99 [facility] Comment on above: Result Comment: Gareth GARDINER Performed By: #### 2 [id number] ####[facility] [address] [place] [address] Echo Transthoracic Completeo n 11-30-2022 Echo Transthoracic Complete Normal [facility] Insurance Correspondence Off iceon 11-30-2022 Insurance Correspondence Office [id number] Normal [facility] Interdisciplinary Note - Santosh e Manageron 11-30-2022 Interdisciplinary Note - Visor Installer Normal [facility] Comment on above: Result Comment: Elec tronically Signed By: Dank HAYDEN, Lisa\.candice\Date and Time Signed: 11/30/22 10:48 EDT Magnesiumon 11-30-2022 Magnesium [Mass/Vol] 1.8 mg/dL Normal 1.3-2.4 [place] Comment on above: Performed By: #### 2 117682, 2057713, 94636011 ####[facility] [address] [place] [address] Message from Medicareon 11-21 Message from Medicare [id number] .00CD:127 Normal [facility] Progress Note-Physicianon Progress Note-Physician Normal [facility] Comment on above: Result Comment: Elec tronically Signed By: Joanie Jiménez MD\.br\Date and Time Signed: 11/30/22 15:13 EDT Progress Note-Physician Normal F [facility] Comment on above: Result Comment: Elec tronically Signed By: Lizeth Cedeno MD\.br\Date and Time Signed: 11/30/22 14:52 EDT UA With Cult Reflexon 2022 Bacteria LM Ql (Urine sed) TRACE Normal Trace [facility] Comment on above: Order Comment: Urina ry Catheter Insertion triggered Urinalysis With Culture Reflex order by discern. Performed By: #### 1 [id number] ####[facility] [address] [place] [address] Bilirubin Ql (U) Negative Normal Negative [facility] Comment on above: Order Comment: Urina ry Catheter Insertion triggered Urinalysis With Culture Reflex order by discern. Performed By: #### 1 [id number] ####[facility] [address] [place] [address] Clarity (U) CLEAR Normal Clear [facility] Comment on above: Order Comment: Urina ry Catheter Insertion triggered Urinalysis With Culture Reflex order by discern. Performed By: #### 1 4236143 ####[facility] [address] [place] [address] Color (U) YELLOW Normal Yellow [facility] Comment on above: Order Comment: Urina ry Catheter Insertion triggered Urinalysis With Culture Reflex order by discern. Performed By: #### 1 4326908 ####[facility] [address] [place] [address] Epithelial cells.squamous LM.HPF (Urine sed) [#/Area] 0-2 Normal 0-2 [facility] Comment on above: Order Comment: Urina ry Catheter Insertion triggered Urinalysis With Culture Reflex order by discern. Performed By: #### 1 0545930 ####[facility] [address] [place] [address] Glucose Test strip (U) [Mass/Vol] Negative Normal Negative [facility] Comment on above: Order Comment: Urina ry Catheter Insertion triggered Urinalysis With Culture Reflex order by discern. Performed By: #### 1 5566134 ####[facility] [address] [place] [address] Hemoglobin Ql (U) Negative Normal Negative [facility] Comment on above: Order Comment: Urina ry Catheter Insertion triggered Urinalysis With Culture Reflex order by discern. Performed By: #### 1 1329621 ####[address] [address] Ketones (U) [Mass/Vol] Negative Normal Negative [facility] Comment on above: Order Comment: Urina ry Catheter Insertion triggered Urinalysis With Culture Reflex order by discern. Performed By: #### 1 0769009 ####[facility] [address] [place] [address] [place].plasma/[place].R BC (Bld) [Mass ratio] 0-3 Normal 0-3 [facility] Comment on above: Order Comment: Urina ry Catheter Insertion triggered Urinalysis With Culture Reflex order by discern. Performed By: #### 1 0841215 ####[facility] [address] [place] [address] Nitrite Ql (U) Negative Normal Negative [facility] Comment on above: Order Comment: Urina ry Catheter Insertion triggered Urinalysis With Culture Reflex order by discern. Performed By: #### 1 [id number] ####[address] [address] pH (U) 6.0 [pH] Invalid Interpretation Code 5.0-9.0 [facility] Comment on above: Order Comment: Urina ry Catheter Insertion triggered Urinalysis With Culture Reflex order by discern. Performed By: #### 1 3744093 ####[facility] [address] [place] [address] Protein (U) [Mass/Vol] Negative Normal Negative [facility] Comment on above: Order Comment: Urina ry Catheter Insertion triggered Urinalysis With Culture Reflex order by discern. Performed By: #### 1 7540681 ####[address] [address] Specific gravity (U) [Rel density] 1.010 Invalid Interpretation Code 1.005-1.030 [facility] Comment on above: Order Comment: Urina ry Catheter Insertion triggered Urinalysis With Culture Reflex order by discern. Performed By: #### 1 3274490 ####[place] [address] Type of Urine collection method Red Normal [facility] Comment on above: Order Comment: Urina ry Catheter Insertion triggered Urinalysis With Culture Reflex order by discern. Performed By: #### 1 7674596 ####[address] [address] Urobilinogen Qn (U) 0.2 {Lei'U}/dL Normal 0.0-1.0 [facility] Comment on above: Order Comment: Urina ry Catheter Insertion triggered Urinalysis With Culture Reflex order by discern. Performed By: #### 1 9220769 ####[address] [address] WBC Auto Ql (U) Negative Normal Negative [facility] Comment on above: Order Comment: Urina ry Catheter Insertion triggered Urinalysis With Culture Reflex order by discern. Performed By: #### 1 [id number] ####[address] [address] WBC casts LM.LPF (Urine sed) [#/Area] 0-3 Normal [facility] Comment on above: Order Comment: Urina ry Catheter Insertion triggered Urinalysis With Culture Reflex order by discern. Performed By: #### 1 3125135 ####[address] [address] WBC LM.HPF (Urine sed) [#/Area] 0-5 Normal 0-5 [facility] Comment on above: Order Comment: Urina ry Catheter Insertion triggered Urinalysis With Culture Reflex order by discern. Performed By: #### 1 1528277 ####[facility] [address] [place] [address] URINALYSISOrdered By: Houston Castillo on 11-30-2022 Bacteria [...] AM) Normal Negative [facility] UA Auto SS [place].plasma/[place].R BC (Bld) [Mass ratio] 0-3 /HPF Normal [...] Spec Desc Red (11/30/22 11:00 AM) Normal [facility] UA Auto SS Urobilinogen Qn (U) 0.4272906 {Lei'U}/dL Normal 0.0 - 1.0 EU/dL [facility] UA Auto SS WBC Auto Ql (U) Negative (11/30/22 11:00 AM) Normal Negative [facility] UA Auto SS WBC casts LM.LPF (Urine sed) [#/Area] 0-3 (11/30/22 11:00 AM) Normal [facility] UA Auto SS WBC LM.HPF (Urine sed) [#/Area] 0-5 /HPF Normal 0-5/HPF [facility] UA Auto SS eGFRon 11-30-2022 GFR/1.73 sq M.predicted among non-blacks MDRD (S/P/Bld) [Vol rate/Area] 69 mL/min/1.73 m2 Normal >=59 [facility] Comment on above: Order Comment: Order added by Discern Expert. Result Comment: Outpatient Physical Therapist earnest kidney disease could be indicated at eGFR's of less than 60 mL/min/1.73m2. Kidney failure is indicated at less than 15 mL/min/1.73m2. Performed By: #### 2 015559, 1109335, 72822420 ####[facility] [address] [place] [address] Auto Diffon 11-29-2022 Basophils/100 WBC (Bld) 0.5 % Normal 0.0-2.[address] [facility] Comment on above: Order Comment: Order Added by Discern Expert. Performed By: #### 2 550716, 6163902, 7013822, 53133315, 48914858, 2739754, 69268238, 7461509, 77265460, 990884849, 7873676, 1595198 ####[facility] [address] [place] [address] Basophils/Leukocytes Auto (Bld) [Pure # fraction] 0.0 E9/L Normal 0.0-0.2 [facility] Comment on above: Order Comment: Order Added by Discern Expert. Performed By: #### 2 141072, 7175493, 0799402, 47562357, 49410905, 0635332, 07120798, 1627711, 55374158, 750807669, 1399593, 4184682 ####[facility] [address] [place] [address] Eosinophils/100 WBC (Bld) 8.4 % High 0.0-8.0 [facility] Comment on above: Order Comment: Order Added by Discern Expert. Performed By: #### 2 926952, 4594629, 6855581, 48686696, 26437556, 7220515, 46368349, 7431966, 37769542, 969695767, 3429294, 0807293 ####[address] [place] [address] Eosinophils/Leukocytes Auto (Bld) [Pure # fraction] 0.6 E9/L High 0.0-0.5 [facility] Comment on above: Order Comment: Order Added by Discern Expert. Performed By: #### 2 493515, 7525214, 2726538, 05514737, 10093660, 6162471, 29288587, 0112089, 85522241, 152251360, 5116378, 7910642 ####[address] [place] [address] Lymphocytes/100 WBC (Bld) 15.8 % Normal 14.0-50.0 [facility] Comment on above: Order Comment: Order Added by Discern Expert. Performed By: #### 2 903407, 4041916, 8797560, 14819936, 68088764, 7946718, 12512566, 5376726, 74660547, 051376543, 4577959, 0645934 ####[facility] [address] [place] [address] Lymphocytes/Leukocytes Auto (Bld) [Pure # fraction] 1.2 E9/L Normal 1.0-4.0 [facility] Comment on above: Order Comment: Order Added by Discern Expert. Performed By: #### 2 140308, 7652820, 9518491, 79662214, 70886066, 8437964, 11492687, 8540855, 28243830, 557775561, 2184607, 9605566 ####[facility] [address] [place] [address] Monocytes/100 WBC (Bld) 8.4 % Normal 4.0-14.0 [facility] Comment on above: Order Comment: Order Added by Discern Expert. Performed By: #### 2 547418, 0403538, 8261628, 43154136, 71365628, 1307232, 93003946, 9448929, 07029510, 650477416, 7896389, 9522406 ####[facility] [address] [place] [address] Monocytes/Leukocytes Auto (Bld) [Pure # fraction] 0.6 E9/L Normal 0.2-1.0 [facility] Comment on above: Order Comment: Order Added by Discern Expert. Performed By: #### 2 890022, 9623183, 9947899, 71882871, 44878109, 6801452, 97203349, 8964290, 84503576, 543777229, 0844083, 0670093 ####[address] [place] [address] Neutrophils/100 WBC (Bld) 66.9 % Normal 36.0-75.0 [facility] Comment on above: Order Comment: Order Added by Discern Expert. Performed By: #### 2 690623, 6210238, 4421064, 43207726, 70013106, 3810993, 37941728, 5688203, 62630206, 749858157, 5068304, 3570524 ####[facility] [address] [place] [address] Neutrophils/Leukocytes Auto (Bld) [Pure # fraction] 5.0 E9/L Normal 2.0-7.5 [facility] Comment on above: Order Comment: Order Added by Discern Expert. Performed By: #### 2 664547, 8203298, 2358612, 80447813, 51595144, 2021999, 55710454, 6940323, 21057840, 076224417, 8343498, 1995364 ####[facility] [address] [place] [address] BMPon 11-29-2022 Anion gap [Moles/Vol] 13 mmol/L Normal 6-16 [facility] Comment on above: Performed By: #### 2 509870, 5419243, 2047326, 17045848, 78757295, 8318105, 81018972, 8131581, 09322528, 668977687, 1383478, 0282958 ####[facility] [address] [place] [address] Calcium [Mass/Vol] 9.1 mg/dL Normal 8.9-11.1 [facility] Comment on above: Performed By: #### 2 243294, 8462039, 8176321, 36248178, 77983182, 4032523, 29792055, 8289666, 37308263, 052924455, 2554609, 2140461 ####[facility] [address] [place] [address] Chloride [Moles/Vol] 102 mmol/L Normal 101-111 [place] Comment on above: Performed By: #### 2 612893, 0355992, 9760942, 28912916, 13018424, 2512713, 29538036, 0664361, 91923367, 108224410, 7872550, 9268323 ####[facility] [address] [place] [address] CO2 [Moles/Vol] 29 mmol/L Normal 21-31 [facility] Comment on above: Performed By: #### 2 031247, 2618901, 6070090, 74450112, 89051550, 9587789, 04815709, 2421429, 21703949, 694483454, 4378077, 3792362 ####[facility] [address] [place] [address] Creatinine [Mass/Vol] 1.1 mg/dL Normal 0.5-1.3 [facility] Comment on above: Performed By: #### 2 342502, 0879213, 9559725, 01395857, 39519908, 0661234, 48212489, 2550399, 13820483, 532449114, 6062657, 1221764 ####[facility] [address] [place] [address] Glucose [Mass/Vol] 95 mg/dL Normal 55-199 [facility] Comment on above: Result Comment: If t his glucose result represents a fasting glucose, interpretation should refer to the following reference range: 55-99 mg/dL Performed By: #### 2 176572, 2668482, 1336113, 09347389, 78052270, 2975566, 38726708, 5845779, 87577191, 219253121, 8646087, 7006278 ####[facility] [address] [place] [address] Potassium [Moles/Vol] 3.9 mmol/L Normal 3.5-5.3 [facility] Comment on above: Performed By: #### 2 142760, 4433981, 7106662, 03381178, 35114236, 8486833, 90727552, 2672241, 22163308, 668806338, 2378972, 9857627 ####[facility] [address] [place] [address] Sodium [Moles/Vol] 140 mmol/L Normal 135-145 [facility] Comment on above: Performed By: #### 2 806554, 2371704, 6090045, 03679216, 10062975, 2532386, 25362094, 8928962, 92799149, 531759228, 4209908, 2683073 ####[facility] [address] [place] [address] Urea nitrogen [Mass/Vol] 16 mg/dL Normal 5-21 [facility] Comment on above: Performed By: #### 2 485181, 0815689, 9162649, 49348267, 30573346, 5337041, 03703384, 3034184, 66324477, 117376460, 9128429, 1472638 ####[facility] [address] [place] [address] Urea nitrogen/Creatinine [Mass ratio] 14 No Units Normal 10-20 [facility] Comment on above: Performed By: #### 2 462926, 7054005, 5376228, 82499563, 34483002, 7852587, 14185212, 4282034, 31326033, 254989879, 8294101, 0516690 ####[facility] [address] [place] [address] BNPon 11-29-2022 Natriuretic peptide B (Bld) [Mass/Vol] 855 pg/mL High 5-80 [facility] Comment on above: Performed By: #### 2 433777, 9506294, 7598845, 18153208, 45215414, 4603801, 38007044, 9743812, 71553366, 161803529, 3318445, 2663236 ####[facility] [address] [place] [address] CBC w/ Auto Diffon 3 Erythrocyte distribution width (RBC) [Ratio] 14.9 % High 10.9-14.2 [facility] Comment on above: Performed By: #### 2 087077, 8330039, 7313642, 15948388, 95940138, 5109582, 31034329, 7140855, 92310525, 798891216, 5450949, 9146892 ####[facility] [address] [place] [address] Hematocrit (Bld) [Volume fraction] 38.1 % Normal 37.7-49.0 [facility] Comment on above: Performed By: #### 2 416730, 4104305, 9452406, 68604760, 86064478, 4429559, 41155058, 5349750, 97557583, 820860788, 2877611, 1602505 ####[facility] [address] [place] [address] Hemoglobin (Bld) [Mass/Vol] 12.8 g/dL Low 13.5-17.5 [facility] Comment on above: Performed By: #### 2 230437, 5590573, 6570353, 79875888, 79814549, 4596467, 80952793, 5588658, 73453889, 422275567, 6593890, 8219291 ####[facility] [address] [place] [address] MCH (RBC) [Entitic mass] 29.0 pg Normal 27.0-34.0 [facility] Comment on above: Performed By: #### 2 224764, 3876638, 2244837, 47810408, 36484880, 7043043, 10155023, 0836617, 35418939, 172389817, 7393108, 4433389 ####[address] [address] MCHC (RBC) [Mass/Vol] 33.7 g/dL Normal 31.4-36.0 [facility] Comment on above: Performed By: #### 2 260614, 9981311, 8183662, 94561150, 08587010, 6661099, 36991537, 6477504, 24742876, 947685131, 4229759, 8680961 ####[facility] [address] [place] [address] MCV (RBC) [Entitic vol] 86.1 fL Normal 80.0-100.[address] [facility] Comment on above: Performed By: #### 2 634226, 4510743, 4120156, 81510316, 63647358, 0600789, 85129059, 4890374, 92289259, 665715213, 8391164, 3463424 ####[facility] [address] [place] [address] Platelet mean volume (Bld) [Entitic vol] 10.9 fL High 6.4-10.8 [facility] Comment on above: Performed By: #### 2 514738, 6887928, 4724362, 33144454, 17978536, 8032446, 20565282, 2050787, 91600954, 536818332, 8206122, 0982340 ####[facility] [address] [place] [address] Platelets (Bld) [#/Vol] 189.0 E9/L Normal 150.0-500.0 [facility] Comment on above: Performed By: #### 2 964030, 7070940, 7873920, 94934174, 22578403, 5533594, 15965365, 0128789, 77782850, 830115838, 2128601, 7155580 ####[address] [place] [address] RBC (Bld) [#/Vol] 4.4 E12/L Normal 4.3-5.9 [facility] Comment on above: Performed By: #### 2 299855, 1043293, 0112091, 53414743, 32302177, 6564064, 22308215, 7965218, 21634475, 939739067, 5561246, 7247427 ####[facility] [address] [place] [address] WBC corrected for nucl RBC Auto (Bld) [#/Vol] 7.4 E9/L Normal 4.0-11.0 [facility] Comment on above: Performed By: #### 2 129865, 9966203, 9906101, 63729114, 68985064, 3331926, 92587582, 0935762, 97570378, 902553780, 1448163, 9284094 ####[facility] [address] [place] [address] CHEMISTRYOrdered By: SYSTEM SYSTEM on 11-29-2022 Albumin [Mass/Vol] 3.6 g/dL Normal 3.3 - 5.0 gm/dL [facility] [...] ratio] 14 mg/mg Normal 10 - 20 FT Rem[facility] 25-hydroxyvitamin D3 [Mass/Vol] ng/mL Low 30.0 - 100.0 ng/mL [facility] Troponin I.cardiac [Mass/Vol] 37.00 pg/mL Normal 15.90 - 38.40 pg/mL [facility] CHEMISTRYOrdered By: Natalie Soto on 11-29-2022 Natriuretic peptide B (Bld) [Mass/Vol] 855 pg/mL High 5 - 80 pg/mL [facility] HemeManSS CHEMISTRYOrdered By: Marian peterson DomainUser on 11-29-2022 Calcium.ionized ISE [Mass/Vol] 4.8 mg/dL Invalid Interpretation Code 4.5-5.6mg/d L [facility] SendOutsSS Comment on above: Result Comment: Perf ormed at: [facility] [address] [id number] PhD Michael Cortes CKon 11-29-2022 CK [Catalytic activity/Vol] 1096 Int._Unit/L Abnormal 14-261 [facility] Comment on above: Result Comment: Crit ical Result verified by repeat analysis\Critical Result [id number] Called to MANAS BARBA AT by AMY JOHNSON and read back for confirmation at 11/29/2022 06:40:15 Performed By: #### 2 251112, 6976438, 1437239, 11192680, 49113092, 4873217, 03404163, 8813061, 59801020, 008349421, 7800715, 0207647 ####[facility] [address] [place] [address] CT Abdomen/Pelvis w/ Contras ton 11-29-2022 CT Abdomen/Pelvis w/ Contrast Normal [facility] CT Head or Brain w/o Contras ton 11-29-2022 CT Head or Brain w/o Contrast Normal [facility] CTA Cheston 11-29-2022 CTA Chest Normal [facility] Capillary Glucose POCon Glucose [Mass/Vol] 122 mg/dL High 55-99 [facility] Comment on above: Result Comment: Gareth guerrero RN/ Performed By: #### 2 [id number] ####[facility] [address] [place] [address] Glucose [Mass/Vol] 174 mg/dL High 55-99 [facility] Comment on above: Performed By: #### 2 77664925 ####[facility] [address] [place] [address] Glucose [Mass/Vol] 107 mg/dL High 55-99 [facility] Comment on above: Result Comment: Gareth GARDINER Performed By: #### 2 30770919 ####[facility] [address] [place] [address] Consultation Noteon 11-30-19 Consultation Note Normal [facility] Comment on above: Result Comment: Elec tronically Signed By: Marcus POTTS, [place]\Date and Time Signed: 11/29/22 14:44 EDT ED Clinical Summaryon 2022 ED Clinical Summary Normal [facility] ED Note-Physicianon 11-30-19 ED Note-Physician Normal [facility] Comment on above: Result Comment: Elec tronically Signed By: Elkin Hitchcock DO\.br\Date and Time Signed: 11/28/22 22:32 EDT ED Patient Education Noteon 11-29-2022 ED Patient Education Note Normal [facility] ED Patient Summaryon 023 ED Patient Summary Normal [facility] HEMATOLOGYOrdered By: SYSTEM SYSTEM on 11-29-2022 [...] 12.8 g/dL Low 13.5 - 17.5 gm/dL FT HemeAutoSS MCH (RBC) [Entitic mass] 29.0 pg Normal 27. 0 - 34.0 pg [facility] HemeAutoSS MCHC (RBC) [Mass/Vol] 33.7 g/dL Normal 31.4 - 36.0 gm/dL FT HemeAutoSS MCV (RBC) [Entitic vol] 86.1 fL Normal 80.0 - 100.0 fL [facility] HemeAutoSS Platelet mean volume (Bld) [Entitic vol] 10.9 fL High 6.4 - 10.8 fL FT HemeAutoSS Platelets (Bld) [#/Vol] 189.0 E9/L Normal 150. 0 - 500.0 E9/L FT HemeAutoSS RBC (Bld) [#/Vol] 4.4 E12/L Normal 4.3 - 5.9 E12/L [facility] HemeAutoSS Sed Rate Automated 17 mm/h Normal 0 - 19 mm/hr [facility] HemeAutoSS WBC corrected for nucl RBC Auto (Bld) [#/Vol] 7.4 E9/L Normal 4.0 - 11.0 E9/L [facility] HemeAutoSS Hep Func Panelon 11-29-2022 Albumin [Mass/Vol] 3.6 g/dL Normal 3.3-5.0 [facility] Comment on above: Performed By: #### 2 537478, 0584709, 0906665, 57192498, 94122952, 8932804, 09756834, 6546411, 33267941, 037970669, 4256605, 3715059 ####[facility] [facility] [address] [place] [address] Albumin/Globulin (S) [Mass conc ratio] 1.2 Normal 1.1-2.2 [facility] Comment on above: Performed By: #### 2 870117, 1295378, 9490861, 85136641, 25990730, 0110891, 05847316, 1301596, 96709112, 697653583, 7421907, 4328547 ####[facility] [address] [place] [address] ALP [Catalytic activity/Vol] 40 Int._Unit/L Normal 21-98 [facility] Comment on above: Performed By: #### 2 754299, 6431587, 8485205, 38133897, 09260190, 1451636, 17812410, 5587220, 03215111, 449480430, 0349921, 8978461 ####[facility] [address] [place] [address] ALT No additional P-5'-P [Catalytic activity/Vol] 17 Int._Unit/L Normal 6-46 [facility] Comment on above: Performed By: #### 2 736806, 6475563, 3677975, 62602077, 62329705, 9753495, 97282922, 6193124, 32197375, 612409406, 8709591, 9908852 ####[facility] [address] [place] [address] AST [Catalytic activity/Vol] 33 Int._Unit/L Normal 5-43 [facility] Comment on above: Performed By: #### 2 088882, 9695747, 1116890, 75361434, 05982733, 5147140, 85211292, 8182172, 12774728, 998900616, 2016629, 1030643 ####[facility] [address] [place] [address] Bilirubin [Mass/Vol] 1.1 mg/dL Normal 0.0-1.1 [place] Comment on above: Performed By: #### 2 557903, 0955911, 9368394, 58535101, 67543954, 4446331, 22202198, 3620229, 65829865, 052644046, 1294643, 0484004 ####[facility] [address] [place] [address] Bilirubin.direct [Mass/Vol] 0.2 mg/dL Normal 0.1-0.4 [facility] Comment on above: Performed By: #### 2 852581, 5566888, 9837511, 11226859, 46521410, 9986342, 14063252, 0024694, 63253402, 783692070, 5762129, 7006542 ####[facility] [address] [place] [address] Bilirubin.indirect [Mass or moles/Vol] 0.9 mg/dL Normal 0.1-0.9 [facility] Comment on above: Performed By: #### 2 933616, 3300363, 2057729, 78029724, 64611356, 0330335, 63715546, 4364075, 38929756, 880937299, 4446523, 6483320 ####[facility] [address] [place] [address] Globulin (S) [Mass/Vol] 3.1 g/dL Normal 1.4-4.[address] [facility] Comment on above: Performed By: #### 2 416131, 6876799, 1480691, 52360879, 35466224, 6849641, 43866613, 3415861, 93600023, 748054963, 3508298, 2314671 ####[facility] [address] [place] [address] Protein [Mass/Vol] 6.7 g/dL Normal 6.0-7.8 [facility] Comment on above: Performed By: #### 2 514989, 5802312, 4781503, 46540482, 71440134, 9533759, 65206865, 3911617, 82506404, 699379618, 8079116, 4759460 ####[facility] [address] [place] [address] Interdisciplinary Note - Santosh e Manageron 11-29-2022 Interdisciplinary Note - Visor Installer Normal [facility] Comment on above: Result Comment: Elec tronically Signed By: Jose HAYDEN, Norma\.br\Date and Time Signed: 11/29/22 15:07 EDT Lipid Panelon 11-29-2022 Cholesterol [Mass/Vol] 114 mg/dL Low 120-[address] [facility] Comment on above: Performed By: #### 2 227955, 8024631, 4182138, 60652615, 44052993, 9041376, 99704063, 2372814, 33017697, 263137153, 5966864, 6974496 ####[facility] [address] [place] [address] Cholesterol in HDL [Mass/Vol] 50 mg/dL Invalid Interpretation Code [facility] Comment on above: Result Comment: HDL > or equal to 60 mg/dL: Low cardiovascular riskHDL < 40 mg/dL : High cardiovascular risk Performed By: #### 2 095252, 8474538, 2185245, 03094689, 07533897, 4972966, 04189231, 6291564, 31269551, 810885399, 3718731, 3839943 ####[facility] [address] [place] [address] Cholesterol in LDL [Mass/Vol] 43 mg/dL Normal <=129 [facility] Comment on above: Performed By: #### 2 135368, 3996374, 1206547, 91925628, 77151827, 1929389, 84870780, 5424915, 99944920, 231174507, 4308468, 3110775 ####[facility] [address] [place] [address] Cholesterol in VLDL [Mass/Vol] 14 mg/dL Normal 7-40 [facility] Comment on above: Performed By: #### 2 187161, 5748610, 2796327, 36252412, 28534963, 2627798, 00437324, 0082901, 34291162, 384819816, 9900746, 9036177 ####[facility] [address] [place] [address] Triglyceride [Mass/Vol] 72 mg/dL Normal <=[address] [facility] Comment on above: Performed By: #### 2 251608, 8146559, 5549736, 85551039, 28227601, 2139440, 09312629, 3350968, 78986106, 864590390, 5160286, 9644764 ####[facility] [address] [place] [address] Monitor Recordon 11-29-2022 Monitor Record [id number]# 1.00CD:127 Normal [facility] Monitor Record [id number]# 1.00CD:127 Normal [facility] Monitor Record [id number]# 1.00CD:127 Normal [facility] Monitor Record [id number]# 1.00CD:127 Normal [facility] Monitor Record [id number] 7 [id number]# 1.00CD:127 Normal [facility] Monitor Record [id number]# 1.00CD:127 Normal [facility] Monitor Record [id number]# 1.00CD:127 Normal [facility] Monitor Record [id number]# 1.00CD:127 Normal [facility] Progress Note-Physicianon Progress Note-Physician Normal F [facility] Comment on above: Result Comment: Elec tronically Signed By: Alex STEIN, [place]\.br\Date and Time Signed: 11/29/22 10:54 EDT RAD - Preliminary Cat Scan R eporton 11-29-2022 RAD - Preliminary Cat Scan Report [id number] #1.00CD:127 Normal [facility] Sed Rate Automatedon 023 Sed Rate Automated 17 mm/hr Normal 0-19 [facility] Comment on above: Performed By: #### 2 401922, 7849959, 5127906, 19401215, 24368586, 3062853, 63563225, 1634471, 97949549, 572820752, 5363042, 5474929 ####[facility] [address] [place] [address] TSH With T4fr Reflexon 11-29 TSH Qn 3.43 m[IU]/L Normal 0.34-5.60 [facility] Comment on above: Performed By: #### 2 485892, 7387307, 3328421, 57215982, 43343132, 9551692, 14673090, 6816820, 24070509, 863488217, 0486613, 9319490 ####[facility] [address] [place] [address] Troponin 6 Hr.on 11-29-2022 Troponin I.cardiac [Mass/Vol] 32.60 pg/mL Normal 15.90-38.40 [facility] Comment on above: Result Comment: The 95% CI (Confidence Interval) PPV (Positive Predictive Value) for myocardial infarction in females is 38 pg/mL, in males 51 pg/mL. The results should be used in conjunction with clinical conditions of myocardial infarction.(Access High Sensitivity Troponin I Instructions For Use, [employer], December 2017) Performed By: #### 1 5130212 ####[facility] [address] [place] [address] Troponin 9 Hr.on 11-29-2022 Troponin I.cardiac [Mass/Vol] 37.00 pg/mL Normal 15.90-38.40 [facility] Comment on above: Result Comment: The 95% CI (Confidence Interval) PPV (Positive Predictive Value) for myocardial infarction in females is 38 pg/mL, in males 51 pg/mL. The results should be used in conjunction with clinical conditions of myocardial infarction.(Access High Sensitivity Troponin I Instructions For Use, [employer], December 2017) Performed By: #### 1 9930264 ####[facility] [address] [place] [address] Vitamin D 25 Hydroxyon 11-29 25-hydroxyvitamin D3 [Mass/Vol] ng/mL Low 30.0-100.0 [facility] Comment on above: Result Comment: Vit palacios D deficiency has been defined as a level of serum 25-OH vitamin D less than 20 ng/mL (1,2) by the [place] of Medicine and an Endocrine Society practice guideline. The Endocrine Society further defined vitamin D insufficiency as a level between 21 and 29 ng/mL (2). 1. IOM ([place] of Medicine). 2010. Dietary reference intakes for calcium and D. [place]: The National Academies Press. 2. Patricia MF, Parisa AGUIRRE, Reji PETERS, et al. Evaluation, treatment, and prevention of vitamin D deficiency: an Endocrine Society clinical practice guideline. JCEM. 2010; 96 (7):1911-30. Performed By: #### 2 512979, 1157694, 2141244, 85972845, 08984572, 6846727, 01449829, 9588980, 94349174, 498611207, 1424968, 2573248 ####[facility] [address] [place] [address] eGFRon 11-29-2022 GFR/1.73 sq M.predicted among non-blacks MDRD (S/P/Bld) [Vol rate/Area] 69 mL/min/1.73 m2 Normal >=59 [facility] Comment on above: Order Comment: Order added by Discern Expert. Result Comment: Outpatient Physical Therapist earnest kidney disease could be indicated at eGFR's of less than 60 mL/min/1.73m2. Kidney failure is indicated at less than 15 mL/min/1.73m2. Performed By: #### 2 782156, 1583560, 2865814, 12494704, 40772090, 6649626, 80167665, 8862588, 15698286, 764747898, 6073533, 5208989 ####[facility] [address] [place] [address] Auto Diffon 11-28-2022 Basophils/100 WBC (Bld) 0.7 % Normal 0.0-2.[address] [facility] Comment on above: Order Comment: Order Added by Discern Expert. Performed By: #### 1 7129403, 9109013, 0336222, 3632697, 78831670 ####[facility] [address] [place] [address] Basophils/Leukocytes Auto (Bld) [Pure # fraction] 0.0 E9/L Normal 0.0-0.2 [facility] Comment on above: Order Comment: Order Added by Discern Expert. Performed By: #### 1 3088232, 9446697, 0161514, 5378247, 87258893 ####[address] [place] [address] Eosinophils/100 WBC (Bld) 7.4 % Normal 0.0-8.0 [facility] Comment on above: Order Comment: Order Added by Discern Expert. Performed By: #### 1 2606136, 7265116, 1017952, 0228909, 17425256 ####[address] [place] [address] Eosinophils/Leukocytes Auto (Bld) [Pure # fraction] 0.5 E9/L Normal 0.0-0.5 [facility] Comment on above: Order Comment: Order Added by Discern Expert. Performed By: #### 1 2522112, 0914214, 3154273, 9663716, 10719174 ####[address] [address] Lymphocytes/100 WBC (Bld) 9.3 % Low 14.0-50.0 [facility] Comment on above: Order Comment: Order Added by Bethany Expert. Performed By: #### 1 7461295, 2715527, 3643959, 3986453, 43837615 ####[address] [address] Lymphocytes/Leukocytes Auto (Bld) [Pure # fraction] 0.7 E9/L Low 1.0-4.0 [facility] Comment on above: Order Comment: Order Added by Bethany Expert. Performed By: #### 1 9567911, 4516179, 1505214, 5236658, 76774404 ####[address] [address] Monocytes/100 WBC (Bld) 6.6 % Normal 4.0-14.0 [facility] Comment on above: Order Comment: Order Added by Bethany Expert. Performed By: #### 1 4794753, 6793301, 7874338, 7329089, 53460289 ####[address] [place] [address] Monocytes/Leukocytes Auto (Bld) [Pure # fraction] 0.5 E9/L Normal 0.2-1.0 [facility] Comment on above: Order Comment: Order Added by Discern Expert. Performed By: #### 1 7786002, 8968741, 7358353, 1536649, 52298457 ####[address] [place] [address] Neutrophils/100 WBC (Bld) 76.0 % High 36.0-75.0 [facility] Comment on above: Order Comment: Order Added by Bethany Expert. Performed By: #### 1 9050808, 0369451, 5336511, 1168475, 97137358 ####[address] [place] [address] Neutrophils/Leukocytes Auto (Bld) [Pure # fraction] 5.4 E9/L Normal 2.0-7.5 [facility] Comment on above: Order Comment: Order Added by Bethany Expert. Performed By: #### 1 2086933, 9418812, 8825933, 4217012, 07700164 ####[address] [place] [address] BMPon 11-28-2022 Creatinine [Mass/Vol] 1.0 mg/dL Normal 0.5-1.3 [facility] Comment on above: Performed By: #### 1 8387118, 4456203, 2267719, 9643506, 45404485 ####[address] [place] [address] Urea nitrogen [Mass/Vol] 16 mg/dL Normal 5-21 [facility] Comment on above: Performed By: #### 1 9374333, 9125739, 9198267, 8962047, 29718280 ####[address] [place] [address] Urea nitrogen/Creatinine [Mass ratio] 16 No Units Normal 10-20 [facility] Comment on above: Performed By: #### 1 3587585, 0512966, 9494436, 9295294, 69799897 ####[facility] [address] [facility] [place] [address] Anion gap [Moles/Vol] 10 mmol/L Normal 6-16 [facility] Comment on above: Performed By: #### 1 6797593, 1979076, 1736894, 4039715, 67940909 ####[facility] [address] [place] [address] Calcium [Mass/Vol] 8.8 mg/dL Low 8.9-11.1 [facility] Comment on above: Performed By: #### 1 1291954, 7602235, 7391882, 2230941, 58375176 ####[facility] [address] [place] [address] Chloride [Moles/Vol] 105 mmol/L Normal 101-111 [place] Comment on above: Performed By: #### 1 9366325, 1753561, 3084359, 3712848, 11486305 ####[facility] [address] [place] [address] CO2 [Moles/Vol] 28 mmol/L Normal 21-31 [facility] Comment on above: Performed By: #### 1 5735633, 7560403, 8990836, 2084944, 55222688 ####[facility] [address] [facility] [place] [address] Glucose [Mass/Vol] 114 mg/dL Normal 55-199 [facility] Comment on above: Result Comment: If t his glucose result represents a fasting glucose, interpretation should refer to the following reference range: 55-99 mg/dL Performed By: #### 1 6193595, 8994866, 6653451, 0141767, 18143699 ####[facility] [address] [facility] [place] [address] Potassium [Moles/Vol] 4.1 mmol/L Normal 3.5-5.3 [facility] Comment on above: Performed By: #### 1 2708843, 5533508, 1895747, 8378135, 29907047 ####[facility] [address] [place] [address] Sodium [Moles/Vol] 139 mmol/L Normal 135-145 [facility] Comment on above: Performed By: #### 1 1989293, 7179024, 6214718, 2200280, 28569897 ####[facility] [address] [place] [address] Blood Gas Art, with Lytes, G christal, [place] 11-28-2022 a/A Ratio Art 53.40 % Normal >=0.80 [facility] Comment on above: Performed By: #### 4 42812137 ####[facility] [address] [place] [address] AaDO2 Art 64.9 mmHg High 5.0-15.0 [facility] Comment on above: Performed By: #### 4 62575630 ####[facility] [address] [place] [address] Allens Test Positive Normal [facility] Comment on above: Performed By: #### 4 79833961 ####[facility] [address] [place] [address] Base Excess Arterial 2.9 mmol/L Normal >=2.8 [facility] Comment on above: Performed By: #### 4 55810524 ####[facility] [address] [place] [address] cCa2+ Art 4.88 mg/dL Normal 4.40-5.30 [facility] Comment on above: Performed By: #### 4 10140184 ####[facility] [address] [place] [address] cCl- Art 103.0 mmol/L Normal 101.0-111.0 [facility] Comment on above: Performed By: #### 4 99670831 ####[facility] [address] [place] [address] cGlu Art 98 mg/dL Normal 55-99 [facility] Comment on above: Performed By: #### 4 42010106 ####[facility] [address] [place] [address] cK+ Art 3.6 mmol/L Normal 3.5-5.3 [facility] Comment on above: Performed By: #### 4 40942187 ####[address] [place] [address] cLac Art .6 mmol/L Normal .5-2.2 [facility] Comment on above: Performed By: #### 4 44566057 ####[address] [address] grinder set up operator thread+ Art 139.0 mmol/L Normal 135.0-145.0 [facility] Comment on above: Performed By: #### 4 91238168 ####[address] [address] Drawn by nmb Invalid Interpretation Code [facility] Comment on above: Performed By: #### 4 58419149 ####[address] [place] [address] FCOHb Art 1.5 % Normal 1.5-4.9 [facility] Comment on above: Result Comment: Refe rence rangeNonsmoker <1.5%Smoker <5.0%Heavy Smoker <9.0% Performed By: #### 4 53136656 ####[facility] [address] [place] [address] FIO2 BG 28 Invalid Interpretation Code [facility] Comment on above: Performed By: #### 4 76138026 ####[facility] [address] [place] [address] Flow 2 Invalid Interpretation Code [facility] Comment on above: Performed By: #### 4 19806023 ####[facility] [address] [place] [address] FMetHb Art 0.3 % Normal 0.0-1.9 [facility] Comment on above: Performed By: #### 4 16179998 ####[address] [address] FO2Hb Art 93.7 % Normal 93.0-100.0 [facility] Comment on above: Performed By: #### 4 37665410 ####[address] [address] HCO3 (Bld) [Moles/Vol] 26.9 mmol/L High 22.0-26.0 [facility] Comment on above: Performed By: #### 4 85518440 ####[address] [address] Hemoglobin (Bld) [Mass/Vol] 11.9 g/dL Low 12.0-17.0 [facility] Comment on above: Performed By: #### 4 01580596 ####[address] [address] Oxygen saturation in Blood 95.4 % Normal 95.0-100.0 [facility] Comment on above: Performed By: #### 4 88369436 ####[address] [address] P CO2 Arterial 47.6 mmHg High 35.0-45.0 [facility] Comment on above: Performed By: #### 4 23315613 ####[address] [address] P O2 Arterial 74.3 mmHg Low 80.0-100.0 [facility] Comment on above: Performed By: #### 4 12889060 ####[address] [address] pH Arterial 7.387 Normal 7.350-7.450 [facility] Comment on above: Performed By: #### 4 37804902 ####[address] [address] Sample Site R Radial Normal [facility] Comment on above: Performed By: #### 4 63591880 ####[facility] [address] [place] [address] Sample Type Arterial Draw Normal [facility] Comment on above: Performed By: #### 4 00720194 ####[facility] [address] [place] [address] CBC w/ Auto Diffon Erythrocyte distribution width (RBC) [Ratio] 14.8 % High 10.9-14.2 [facility] Comment on above: Performed By: #### 1 0017752, 4215379, 0900344, 5944082, 49788875 ####[address] [place] [address] Hematocrit (Bld) [Volume fraction] 37.3 % Low 37.7-49.0 [facility] Comment on above: Performed By: #### 1 1022521, 5633087, 5552389, 8231748, 69341844 ####[facility] [address] [place] [address] Hemoglobin (Bld) [Mass/Vol] 12.3 g/dL Low 13.5-17.5 [facility] Comment on above: Performed By: #### 1 9573235, 5316215, 3699491, 8368160, 59409221 ####[facility] [address] [place] [address] MCH (RBC) [Entitic mass] 28.3 pg Normal 27.0-34.0 [facility] Comment on above: Performed By: #### 1 4489503, 7122565, 8294358, 7691712, 77580923 ####[facility] [address] [place] [address] MCHC (RBC) [Mass/Vol] 33.0 g/dL Normal 31.4-36.0 [facility] Comment on above: Performed By: #### 1 3770544, 0123607, 6396553, 7498734, 38388401 ####[address] [address] MCV (RBC) [Entitic vol] 85.9 fL Normal 80.0-100.[address] [facility] Comment on above: Performed By: #### 1 2583414, 5897680, 7174823, 7900490, 24984103 ####[address] [address] Platelet mean volume (Bld) [Entitic vol] 10.4 fL Normal 6.4-10.8 [facility] Comment on above: Performed By: #### 1 7909314, 2163205, 5538936, 7040247, 04248417 ####[address] [address] Platelets (Bld) [#/Vol] 189.0 E9/L Normal 150.0-500.0 [facility] Comment on above: Performed By: #### 1 8571074, 3260993, 0512288, 2847829, 97924904 ####[address] [address] RBC (Bld) [#/Vol] 4.3 E12/L Normal 4.3-5.9 [facility] Comment on above: Performed By: #### 1 6059996, 7118332, 6351431, 0113244, 25530118 ####[address] [address] WBC corrected for nucl RBC Auto (Bld) [#/Vol] 7.1 E9/L Normal 4.0-11.0 [facility] Comment on above: Performed By: #### 1 3088681, 8780300, 4689858, 7213487, 35939746 ####[address] [address] CHEMISTRYOrdered By: SYSTEM SYSTEM on 11-28-2022 Troponin I.cardiac [Mass/Vol] 32.60 pg/mL Normal 15.90 - 38.40 pg/mL [facility] I.cardiac [Mass/Vol] 26.90 pg/mL Normal 15.90 - 38.40 pg/mL [facility] Remisol Consent for Treatmenton Consent for Treatment [id number]#1 .00CD:127 Normal [facility] ED Note-Physicianon 11-29-19 ED Note-Physician Normal [facility] Comment on above: Result Comment: Elec tronically Signed By: Shane Pan DO\.br\Date and Time Signed: 11/28/22 18:32 EDT FT Blood GasesOrdered By: Sue Orozco on 11-28-2022 a/A Ratio Art 53.40 % Normal >=0.80% FT Resp Auto SS AaDO2 Art 64.9 mm[Hg] High 5.0 - 15.0 mmHg FT Resp Auto SS Allens Test Positive (11/28/22 6:55 PM) Normal FT Resp Auto SS Base Excess Arterial 2.9 mmol/L Normal >=2.8mmol/L FTM C Resp Auto SS cCa2+ Art 4.88 mg/dL Normal 4.40 - 5.30 mg/dL FT Resp Auto SS cCl- Art 103.0 mmol/L Normal 101.0 - 111.0 mmol/L FT Resp Auto SS cGlu Art 98 mg/dL Normal 55 - 99 mg/dL FT Resp Auto SS cK+ Art 3.6 mmol/L Normal 3.5 - 5.3 mmol/L FT Resp Auto SS cLac Art 0.6 mmol/L Normal 0.5 - 2.2 mmol/L FT Resp Auto SS grinder set up operator thread+ Art 139.0 mmol/L Normal 135.0 - 145.0 mmol/L FT Resp Auto SS Drawn by nmb Invalid Interpretation Code FT Resp Auto SS FCOHb Art 1.5 % Normal 1.5 - 4.9 % FT Resp Auto SS FIO2 BG 28 Invalid Interpretation Code FT Resp Auto SS Flow 2 Invalid Interpretation Code [facility] Resp Auto SS FMetHb Art 0.3 % Normal 0.0 - 1.9 % FT Resp Auto SS FO2Hb Art 93.7 % Normal 93.0 - 100.0 % FT Resp Auto SS HCO3 (Bld) [Moles/Vol] 26.9 mmol/L High 22.0 - 26.0 mmol/L [facility] Resp Auto SS Hemoglobin (Bld) [Mass/Vol] 11.9 g/dL Low 12.0 - 17.0 gm/dL [facility] Resp Auto SS P CO2 Arterial 47.6 mm[Hg] High 35.0 - 45.0 mmHg [facility] Resp Auto SS P O2 Arterial 74.3 mm[Hg] Low 80.0 - 100.0 mmHg [facility] Resp Auto SS pH Arterial 7.387 Normal 7.350 - 7.450 [facility] Resp Auto SS Sample Site R Radial (11/28/22 6:55 PM) Normal [facility] Resp Auto SS Sample Type Arterial Draw (11/28/22 6:55 PM) Normal [facility] Resp Auto SS HEMATOLOGYOrdered By: SYSTEM SYSTEM [...] % [facility] HemeAutoSS Hematocrit (Bld) [Volume fraction] 37.3 % [...] [facility] HemeAutoSS Pre-Arrival Noteon Pre-Arrival Note Normal [facility] Troponin 0 Hr.on 11-28-2022 Troponin I.cardiac [Mass/Vol] 21.80 pg/mL Normal 15.90-38.40 [facility] Comment on above: Result Comment: The 95% CI (Confidence Interval) PPV (Positive Predictive Value) for myocardial infarction in females is 38 pg/mL, in males 51 pg/mL. The results should be used in conjunction with clinical conditions of myocardial infarction.(Access High Sensitivity Troponin I Instructions For Use, Claudia Pat[employer], December 2017) Performed By: #### 1 1688455, 2641786, 6047383, 6844112, 41927722 ####[facility] [address] [place] [address] Troponin 3 Hr.on 11-28-2022 Troponin I.cardiac [Mass/Vol] 26.90 pg/mL Normal 15.90-38.40 [facility] Comment on above: Result Comment: The 95% CI (Confidence Interval) PPV (Positive Predictive Value) for myocardial infarction in females is 38 pg/mL, in males 51 pg/mL. The results should be used in conjunction with clinical conditions of myocardial infarction.(Access High Sensitivity Troponin I Instructions For Use, Claudia Paterson, December 2017) Performed By: #### 1 [id number] ####[facility] [address] [place] [address] UA With Cult Reflexon 2022 Crystals LM Ql (Urine sed) Present Normal [facility] Comment on above: Performed By: #### 1 9969571 ####[address] [address] Epithelial cells.squamous LM.HPF (Urine sed) [#/Area] 0-2 Normal 0-2 [facility] Comment on above: Performed By: #### 1 6034353 ####[address] [address] [place].plasma/[place].R BC (Bld) [Mass ratio] 0-3 Normal 0-3 [facility] Comment on above: Performed By: #### 1 [id number] ####[facility] [address] [place] [address] Mucus Ql (Urine sed) TRACE Normal [facility] Comment on above: Performed By: #### 1 7591395 ####[address] [address] WBC LM.HPF (Urine sed) [#/Area] 0-5 Normal 0-5 [facility] Comment on above: Performed By: #### 1 2394599 ####[address] [address] Bilirubin Ql (U) Negative Normal Negative [facility] Comment on above: Performed By: #### 1 9151898 ####[facility] [address] [place] [address] Clarity (U) CLEAR Normal Clear [facility] Comment on above: Performed By: #### 1 9808284 ####[facility] [address] [place] [address] Color (U) YELLOW Normal Yellow [facility] Comment on above: Performed By: #### 1 3835090 ####[facility] Skctmmynsm032 [place] [address] Glucose Test strip (U) [Mass/Vol] Negative Normal Negative [facility] Comment on above: Performed By: #### 1 4085384 ####[facility] [address] [place] [address] Hemoglobin Ql (U) Negative Normal Negative [facility] Comment on above: Performed By: #### 1 7394438 ####[address] [address] Ketones (U) [Mass/Vol] Negative Normal Negative [facility] Comment on above: Performed By: #### 1 3740513 ####[address] [address] Nitrite Ql (U) Negative Normal Negative [facility] Comment on above: Performed By: #### 1 8849808 ####[facility] [address] [place] [address] pH (U) 6.0 [pH] Invalid Interpretation Code 5.0-9.0 [facility] Comment on above: Performed By: #### 1 4429513 ####[facility] [address] [place] [address] Protein (U) [Mass/Vol] 2+ Abnormal Negative [facility] Comment on above: Performed By: #### 1 8226795 ####[address] [place] [address] Specific gravity (U) [Rel density] 1.025 Invalid Interpretation Code 1.005-1.030 [facility] Comment on above: Performed By: #### 1 2427440 ####[address] [address] Type of Urine collection method Clean Catch Normal [facility] Comment on above: Performed By: #### 1 6317784 ####[facility] [address] [place] [address] Urobilinogen Qn (U) 0.2 {Lei'U}/dL Normal 0.0-1.0 [facility] Comment on above: Performed By: #### 1 8419009 ####[facility] [address]xm[address] [place] [address] WBC Auto Ql (U) Negative Normal Negative [facility] Comment on above: Performed By: #### 1 1864878 ####[facility] [address] [place] [address] URINALYSISOrdered By: Emily Suero on 11-28-2022 Bilirubin Ql (U) Negative (11/28/22 5:55 PM) Normal Negative [facility] UA Auto SS Clarity (U) Clear (11/28/22 [...] PM) Normal Negative [facility] UA Auto SS [place]plasma[place].R BC (Bld) [Mass ratio] 0-3 /HPF Normal 0-3/HPF [facility] UA Au to SS Mucus Ql (Urine sed) Trace (11/28/22 5:55 PM) Normal [facility] UA Auto SS Nitrite Ql (U) Negative (11/28/22 5:55 PM) Normal Negative [facility] UA Auto SS pH (U) 6.0 *NA* (11/28/22 5:55 PM) Invalid Interpretation Code 5.0 - 9.0 [facility] UA Auto SS Protein (U) [Mass/Vol] 2+ *ABN* (11/28/22 5:55 PM) Invalid Interpretation Code Negative [facility] UA Auto SS Specific gravity (U) [Rel density] 1.025 *NA* (11/28/22 5:55 PM) Invalid Interpretation Code 1.005 - 1.030 [facility] UA Auto SS UA Spec Desc Clean Catch (11/28/22 5:55 PM) Normal [facility] UA Auto SS Urobilinogen Qn (U) 0.8296462 {Lei'U}/dL Normal 0.0 - 1.0 EU/dL [facility] UA Auto SS WBC Auto Ql (U) Negative (11/28/22 5:55 PM) Normal Negative [facility] UA Auto SS WBC LM.HPF (Urine sed) [#/Area] 0-5 /HPF Normal 0-5/HPF [facility] UA Auto SS XR Chest Single Viewon 11-28 XR Chest Single View Normal [facility] eGFRon 11-28-2022 GFR/1.73 sq M.predicted among non-blacks MDRD (S/P/Bld) [Vol rate/Area] 77 mL/min/1.73 m2 Normal >=59 [facility] Comment on above: Order Comment: Order added by Discern Expert. Result Comment: Outpatient Physical Therapist earnest kidney disease could be indicated at eGFR's of less than 60 mL/min/1.73m2. Kidney failure is indicated at less than 15 mL/min/1.73m2. Performed By: #### 1 1825302, 8811119, 1452286, 3020665, 05667191 ####[facility] [address]70357 CHEMISTRYOrdered By: SYSTEM SYSTEM on 11-26-2022 Albumin [...] 87 mL/min/1.73 m2 Normal >=59mL/min/ 1.73 m2 FT Chem S Globulin (S) [Mass/Vol] 3.2 g/dL [...] Triglyceride [Mass/Vol] 69 mg/dL Normal <=149mg/dL [facility] Remisol TSH Qn 2.07 m[IU]/L Normal 0.34 - 5.60 mcIU/mL [facility] [place]isol Urea nitrogen [Mass/Vol] 18 mg/dL Normal 5 - 21 mg/dL [facility] Remisol Urea nitrogen/Creatinine [Mass ratio] 20 mg/mg Normal 10 - 20 [facility] Remisol CMPon 11-26-2022 Albumin [Mass/Vol] 3.7 g/dL Normal 3.3-5.0 [facility] Comment on above: Performed By: #### 2 862768, 8354511, 45935751, 9601438 ####[facility] [address] [place] [address] Albumin/Globulin (S) [Mass conc ratio] 1.2 Normal 1.1-2.2 [facility] Comment on above: Performed By: #### 2 174121, 6987911, 69956208, 5783666 ####[facility] [address] [place] [address] ALP [Catalytic activity/Vol] 38 Int._Unit/L Normal 21-98 [facility] Comment on above: Performed By: #### 2 374268, 7678935, 45469829, 0778898 ####[facility] [address] [place] [address] ALT No additional P-5'-P [Catalytic activity/Vol] 11 Int._Unit/L Normal 6-46 [facility] Comment on above: Performed By: #### 2 046772, 5632279, 10297682, 2619297 ####[facility] [address] [place] [address] Anion gap [Moles/Vol] 14 mmol/L Normal 6-16 [facility] Comment on above: Performed By: #### 2 154461, 7625869, 38826005, 6120778 ####[facility] [address] [place] [address] AST [Catalytic activity/Vol] 15 Int._Unit/L Normal 5-43 [facility] Comment on above: Performed By: #### 2 792209, 4312342, 68790827, 1337352 ####[facility] [address] [place] [address] Bilirubin [Mass/Vol] 1.0 mg/dL Normal 0.0-1.1 [place] Comment on above: Performed By: #### 2 549922, 7707069, 76262611, 5340979 ####[facility] [address] [place] [address] Calcium [Mass/Vol] 9.2 mg/dL Normal 8.9-11.1 [facility] Comment on above: Performed By: #### 2 582751, 9548773, 07096272, 6709101 ####[facility] [address] [place] [address] Chloride [Moles/Vol] 107 mmol/L Normal 101-111 [place] Comment on above: Performed By: #### 2 762292, 6636206, 60833880, 5980713 ####[facility] [address] [place] [address] CO2 [Moles/Vol] 28 mmol/L Normal 21-31 [facility] Comment on above: Performed By: #### 2 552024, 7626688, 21584270, 4788520 ####[facility] [address] [place] [address] Creatinine [Mass/Vol] 0.9 mg/dL Normal 0.5-1.3 [facility] Comment on above: Performed By: #### 2 597142, 6526905, 29241391, 6587121 ####[facility] [address] [facility] [place] [address] Globulin (S) [Mass/Vol] 3.2 g/dL Normal 1.4-4.[address] [facility] Comment on above: Performed By: #### 2 254653, 1771135, 98829209, 1910288 ####[facility] [address] [place] [address] Glucose [Mass/Vol] 95 mg/dL Normal 55-199 [facility] Comment on above: Result Comment: If t his glucose result represents a fasting glucose, interpretation should refer to the following reference range: 55-99 mg/dL Performed By: #### 2 595606, 5353405, 92958587, 3639817 ####[facility] [address] [place] [address] Potassium [Moles/Vol] 4.2 mmol/L Normal 3.5-5.3 [facility] Comment on above: Performed By: #### 2 273746, 8247028, 84461720, 5952490 ####[facility] [address] [place] [address] Protein [Mass/Vol] 6.9 g/dL Normal 6.0-7.8 [facility] Comment on above: Performed By: #### 2 654663, 8162358, 32717267, 0767117 ####[facility] [address] [place] [address] Sodium [Moles/Vol] 145 mmol/L Normal 135-145 [facility] Comment on above: Performed By: #### 2 876621, 9038379, 13472009, 1966815 ####[facility] [address] [place] [address] Urea nitrogen [Mass/Vol] 18 mg/dL Normal 5-21 [facility] Comment on above: Performed By: #### 2 453309, 3402587, 87181527, 3166791 ####[facility] [address] [place] [address] Urea nitrogen/Creatinine [Mass ratio] 20 No Units Normal 10-20 [facility] Comment on above: Performed By: #### 2 269852, 5903459, 07330079, 6184316 ####[facility] [address] [place] [address] Consent for Treatmenton 0 Consent for Treatment [id number]#1 .00CD:127 Normal [facility] Lipid Panelon 11-26-2022 Cholesterol [Mass/Vol] 112 mg/dL Low 120-[address] [facility] Comment on above: Performed By: #### 2 338788, 4374827, 15678199, 8248669 ####[facility] [address] [place] [address] Cholesterol in HDL [Mass/Vol] 49 mg/dL Invalid Interpretation Code [facility] Comment on above: Result Comment: HDL > or equal to 60 mg/dL: Low cardiovascular riskHDL < 40 mg/dL : High cardiovascular risk Performed By: #### 2 124668, 6862969, 09508392, 1970221 ####[facility] [address] [place] [address] Cholesterol in LDL [Mass/Vol] 42 mg/dL Normal <=129 [facility] Comment on above: Performed By: #### 2 504091, 8117721, 10673220, 5854023 ####[facility] [address] [place] [address] Cholesterol in VLDL [Mass/Vol] 14 mg/dL Normal 7-40 [facility] Comment on above: Performed By: #### 2 281958, 3408996, 89946472, 4570588 ####[facility] [address] [place] [address] Triglyceride [Mass/Vol] 69 mg/dL Normal <=[address] [facility] Comment on above: Performed By: #### 2 145930, 0096328, 29425585, 5769466 ####[facility] [address] [place] [address] Physician Orderon 11-26-2022 Physician Order [id number]# 1.00CD:127 Normal [facility] TSHon 11-26-2022 TSH Qn 2.07 m[IU]/L Normal 0.34-5.60 [facility] Comment on above: Performed By: #### 2 627228, 8020935, 41660170, 6278867 ####[facility] [address] [place] [address] eGFRon 11-26-2022 GFR/1.73 sq M.predicted among non-blacks MDRD (S/P/Bld) [Vol rate/Area] 87 mL/min/1.73 m2 Normal >=59 [facility] Comment on above: Order Comment: Order added by Discern Expert. Result Comment: Outpatient Physical Therapist earnest kidney disease could be indicated at eGFR's of less than 60 mL/min/1.73m2. Kidney failure is indicated at less than 15 mL/min/1.73m2. Performed By: #### 2 999125, 5015014, 98958547, 6002199 ####[facility] [address] [place] [address] Discharge Instructionson Discharge Instructions [id number] .00CD:127 Normal [facility] Transfer Documentson 023 Transfer Documents [id number]#1 .00CD:127 Normal [facility] Capillary Glucose POCon Glucose [Mass/Vol] 166 mg/dL High 55-99 [facility] Comment on above: Result Comment: Gareth guerrero RN/ Performed By: #### 2 87389756 ####[facility] [address] [place] [address] Glucose [Mass/Vol] 119 mg/dL High 55-99 [facility] Comment on above: Result Comment: Repe at Test Performed By: #### 2 77867665 ####[facility] [address] [place] [address] Discharge Note-Nursingon Discharge Note-Nursing Normal Fi [facility] VkeI5ndo 09-28-2022 HbA1c (Bld) [Mass fraction] 6.4 % High <=5.9 [facility] Comment on above: Order Comment: IF UN ABLE TO ADD TO ED LABS Performed By: #### 2 764740, [id number] ####[facility] [address] [place] [address] Inpatient Clinical Summaryon 09-28-2022 Inpatient Clinical Summary Normal [facility] Inpatient Patient Summaryon 09-28-2022 Inpatient Patient Summary Normal [facility] Inpatient Patient Summary Normal [facility] Interdisciplinary Note - Santosh e Manageron 09-28-2022 Interdisciplinary Note - Visor Installer Normal [facility] Comment on above: Result Comment: Elec tronically Signed By: Jose HAYDEN, Norma\.br\Date and Time Signed: 09/28/22 15:54 EDT Monitor Recordon 09-28-2022 Monitor Record [id number]# 1.00CD:127 Normal [facility] Capillary Glucose POCon Glucose [Mass/Vol] 192 mg/dL High 55-99 [facility] Comment on above: Result Comment: Gareth GARDINER Performed By: #### 2 37048534 ####[facility] [address] [place] [address] Glucose [Mass/Vol] 130 mg/dL High 55-99 [facility] Comment on above: Result Comment: No C overage Given Performed By: #### 2 79661105 ####[facility] [address] [place] [address] Glucose [Mass/Vol] 202 mg/dL High 55-99 [facility] Comment on above: Result Comment: Gareth GARDINER Performed By: #### 2 79159205 ####[facility] [address] [place] [address] Glucose [Mass/Vol] 89 mg/dL Normal 55-99 [facility] Comment on above: Result Comment: Gareth GARDINER Performed By: #### 2 34329291 ####[facility] [address] [place] [address] Insurance Correspondence Off iceon 09-27-2022 Insurance Correspondence Office [id number]# 1.00CD:127 Normal [facility] Interdisciplinary Note - Santosh e Manageron 09-27-2022 Interdisciplinary Note - Visor Installer [facility] Comment on above: Result Comment: Elec tronically Signed By: Natalie Grant\Date and Time Signed: 09/27/22 14:56 EDT Interdisciplinary Note - PTo n 09-27-2022 Interdisciplinary Note - PT Pt is safe and indep w/bed mobility, transfers and gait w/FWW. Pt uses FWW at home; he is at his baseline. NO PT needs at this time. No needs anticipated upon d/c home. AM-PAC [facility] Lyteson 09-27-2022 Anion gap [Moles/Vol] 9 mmol/L Normal 6-16 [facility] Comment on above: Performed By: #### 2 640828, 406860915 ####[facility] [address] [place] [address] Chloride [Moles/Vol] 105 mmol/L Normal 101-111 [place] Comment on above: Performed By: #### 2 931714, 740153079 ####[facility] [address] [place] [address] CO2 [Moles/Vol] 26 mmol/L Normal 21-31 [facility] Comment on above: Performed By: #### 2 562271, 958002183 ####[facility] [address] [place] [address] Potassium [Moles/Vol] 4.2 mmol/L Normal 3.5-5.3 [facility] Comment on above: Performed By: #### 2 701140, 696944950 ####[facility] [address] [place] [address] Sodium [Moles/Vol] 136 mmol/L Normal 135-145 [facility] Comment on above: Performed By: #### 2 749816, 570900103 ####[facility] [address] [place] [address] Monitor Recordon 09-27-2022 Monitor Record [id number]# 1.00CD:127 Normal [facility] Monitor Record [id number]# 1.00CD:127 Normal [facility] Progress Note-Nurseon 2022 Progress Note-Nurse Normal [facility] Progress Note-Physicianon Progress Note-Physician Normal F [facility] Comment on above: Result Comment: Elec tronically Signed By: Adeline COLEMAN\.br\Date and Time Signed: 09/27/22 15:34 EDT\.br\Electronically Co-Signed By: Adeline COLEMAN\.br\Date and Time Co-Signed: 09/27/22 15:37 EDT\.br\Electronically Co-Signed By: Ganesh Minaya MD\.br\Date and Time Co-Signed: 09/27/22 18:58 EDT Auto Diffon 09-26-2022 Basophils/100 WBC (Bld) 0.5 % Normal 0.0-2.0 [facility] Comment on above: Order Comment: Order Added by Discern Expert. Performed By: #### 1 9978023, 3592502, 6885283, 1890133 ####[facility] [address] [place] [address] Basophils/Leukocytes Auto (Bld) [Pure # fraction] 0.0 E9/L Normal 0.0-0.2 [facility] Comment on above: Order Comment: Order Added by Discern Expert. Performed By: #### 1 7420541, 8858426, 7002390, 6400134 ####[facility] [address] [place] [address] Eosinophils/100 WBC (Bld) 3.3 % Normal 0.0-8.0 [facility] Comment on above: Order Comment: Order Added by Discern Expert. Performed By: #### 1 6226237, 1797876, 6816511, 5935679 ####[facility] [address] [place] [address] Eosinophils/Leukocytes Auto (Bld) [Pure # fraction] 0.3 E9/L Normal 0.0-0.5 [facility] Comment on above: Order Comment: Order Added by Discern Expert. Performed By: #### 1 5346203, 0444214, 1693849, 9244977 ####[address] [place] [address] Lymphocytes/100 WBC (Bld) 9.5 % Low 14.0-50.0 [facility] Comment on above: Order Comment: Order Added by Discern Expert. Performed By: #### 1 0090010, 9609377, 3025573, 3534292 ####[address] [place] [address] Lymphocytes/Leukocytes Auto (Bld) [Pure # fraction] 0.8 E9/L Low 1.0-4.0 [facility] Comment on above: Order Comment: Order Added by [place] Expert. Performed By: #### 1 0647701, 8630158, 3444052, 7955795 ####[address] [address] Monocytes/100 WBC (Bld) 7.2 % Normal 4.0-14.0 [facility] Comment on above: Order Comment: Order Added by Bethany Expert. Performed By: #### 1 8606769, 4091442, 0998950, 8709601 ####[address] [address] Monocytes/Leukocytes Auto (Bld) [Pure # fraction] 0.6 E9/L Normal 0.2-1.0 [facility] Comment on above: Order Comment: Order Added by Discern Expert. Performed By: #### 1 1243842, 5463469, 8061010, 2460264 ####[address] [address] Neutrophils/100 WBC (Bld) 79.5 % High 36.0-75.0 [facility] Comment on above: Order Comment: Order Added by Bethany Expert. Performed By: #### 1 1259307, 7387634, 2358427, 7128674 ####[address] [place] [address] Neutrophils/Leukocytes Auto (Bld) [Pure # fraction] 6.7 E9/L Normal 2.0-7.5 [facility] Comment on above: Order Comment: Order Added by Discern Expert. Performed By: #### 1 0954283, 3061790, 7100367, 7250998 ####[facility] [address] [place] [address] BMPon 09-26-2022 Creatinine [Mass/Vol] 1.0 mg/dL Normal 0.5-1.3 [facility] Comment on above: Performed By: #### 1 3275339, 9111057, 5429395, 9629633 ####[facility] [address] [place] [address] Urea nitrogen [Mass/Vol] 25 mg/dL High 5-21 [facility] Comment on above: Performed By: #### 1 8934851, 5493435, 3317862, 8197018 ####[facility] [address] [place] [address] Urea nitrogen/Creatinine [Mass ratio] 25 No Units High 10-20 [facility] Comment on above: Performed By: #### 1 6329932, 6041902, 4212941, 5311053 ####[facility] [address] [place] [address] Anion gap [Moles/Vol] 10 mmol/L Normal 6-16 [facility] Comment on above: Performed By: #### 1 7970888, 1192584, 8685081, 2854111 ####[facility] [address] [place] [address] Calcium [Mass/Vol] 8.9 mg/dL Normal 8.9-11.1 [facility] Comment on above: Performed By: #### 1 3251541, 9056171, 7613154, 0791215 ####[facility] [address] [place] [address] Chloride [Moles/Vol] 101 mmol/L Normal 101-111 [place] Comment on above: Performed By: #### 1 4711038, 2145279, 5041336, 9638667 ####[facility] [address] [place] [address] CO2 [Moles/Vol] 26 mmol/L Normal 21-31 [facility] Comment on above: Performed By: #### 1 7817802, 4547025, 3105194, 4928661 ####[facility] [address] [place] [address] Glucose [Mass/Vol] 112 mg/dL Normal 55-199 [facility] Comment on above: Result Comment: If t his glucose result represents a fasting glucose, interpretation should refer to the following reference range: 55-99 mg/dL Performed By: #### 1 5074562, 7212833, 0368038, 5482227 ####[facility] [address] [place] [address] Potassium [Moles/Vol] 4.1 mmol/L Normal 3.5-5.3 [facility] Comment on above: Performed By: #### 1 9702467, 1454688, 4155031, 5118188 ####[facility] [address] [place] [address] Sodium [Moles/Vol] 133 mmol/L Low 135-145 [facility] Comment on above: Performed By: #### 1 7878447, 6877681, 1466359, 1152381 ####[address] [place] [address] CBC w/ Auto Diffon 3 Erythrocyte distribution width (RBC) [Ratio] 14.6 % High 10.9-14.2 [facility] Comment on above: Performed By: #### 1 0613763, 3787524, 2328924, 1693734 ####[address] [place] [address] Hematocrit (Bld) [Volume fraction] 37.6 % Low 37.7-49.0 [facility] Comment on above: Performed By: #### 1 1273658, 2533406, 7631613, 6629077 ####[facility] [address] [place] [address] Hemoglobin (Bld) [Mass/Vol] 12.5 g/dL Low 13.5-17.5 [facility] Comment on above: Performed By: #### 1 5363577, 1137830, 0425668, 8239061 ####[facility] [address] [place] [address] MCH (RBC) [Entitic mass] 28.5 pg Normal 27.0-34.0 [facility] Comment on above: Performed By: #### 1 7489060, 1114712, 5306207, 2856061 ####[address] [address] MCHC (RBC) [Mass/Vol] 33.2 g/dL Normal 31.4-36.0 [facility] Comment on above: Performed By: #### 1 7088585, 3588073, 5802820, 8162317 ####[address] [address] MCV (RBC) [Entitic vol] 85.8 fL Normal 80.0-100.[address] [facility] Comment on above: Performed By: #### 1 0628825, 7129750, 1128404, 3075566 ####[address] [address] Platelet mean volume (Bld) [Entitic vol] 10.3 fL Normal 6.4-10.8 [facility] Comment on above: Performed By: #### 1 2705590, 4346403, 0469384, 3460842 ####[address] [place] [address] Platelets (Bld) [#/Vol] 164.0 E9/L Normal 150.0-500.0 [facility] Comment on above: Performed By: #### 1 0728148, 5389451, 4470983, 4410651 ####[address] [address] RBC (Bld) [#/Vol] 4.4 E12/L Normal 4.3-5.9 [facility] Comment on above: Performed By: #### 1 0466823, 7189792, 9095414, 4989525 ####[facility] [address] [place] [address] WBC corrected for nucl RBC Auto (Bld) [#/Vol] 8.4 E9/L Normal 4.0-11.0 [facility] Comment on above: Performed By: #### 1 1057862, 1785732, 0694245, 7273316 ####[facility] [address] [place] [address] Capillary Glucose POCon Glucose [Mass/Vol] 161 mg/dL High 55-99 [facility] Comment on above: Result Comment: Gareth guerrero RN/MD Performed By: #### 2 10320557 ####[facility] [address] [place] [address] Consent for Treatmenton Consent for Treatment [id number] .00CD:127 Normal [facility] ED Clinical Summaryon 2022 ED Clinical Summary Normal [facility] ED Note-Physicianon 09-27-19 ED Note-Physician Normal [facility] Comment on above: Result Comment: Elec tronically Signed By: Shane Pan DO\.candice\Date and Time Signed: 09/26/22 16:06 EDT ED Patient Education Noteon 09-26-2022 ED Patient Education Note Normal [facility] ED Patient Summaryon 023 ED Patient Summary Normal [facility] EMS Documentationon 09-27-19 EMS Documentation Normal [facility] Hospital EMS Documentation Normal [facility] Pre-Arrival Noteon Pre-Arrival Note Normal [facility] Progress Noteson 09-26-2022 Watch Crystal Cutter Authentication Interface Message Text EMERGENCY TRIAGE, TREAT AND TRANSPORT (ET3) DOCUMENTATION OF TELEHEALTH VISIT Date / Time: 09/26/2022929 Name: Clyde Humphrey : 1945 SSN: [id number] EMS Agency: [facility] [x] Verbal consent obtained [] Implied [...] Completed by: Coby Lugo MD Normal [employer] UA With Cult Reflexon 2022 Bilirubin Ql (U) Negative Normal Negative [facility] Comment on above: Order Comment: can s traight cath if needed. Performed By: #### 1 [id number] ####[facility] [address] [place] [address] Clarity (U) CLEAR Normal Clear [facility] Comment on above: Order Comment: can s traight cath if needed. Performed By: #### 1 [id number] ####[facility] [address] [place] [address] Color (U) YELLOW Normal Yellow [facility] Comment on above: Order Comment: can s traight cath if needed. Performed By: #### 1 [id number] ####[facility] [address] [place] [address] Epithelial cells.squamous LM.HPF (Urine sed) [#/Area] 0-2 Normal 0-2 [facility] Comment on above: Order Comment: can s traight cath if needed. Performed By: #### 1 [id number] ####[facility] [address] [place] [address] Glucose Test strip (U) [Mass/Vol] Negative Normal Negative [facility] Comment on above: Order Comment: can s traight cath if needed. Performed By: #### 1 [id number] ####[facility] [address] [place] [address] Hemoglobin Ql (U) Negative Normal Negative [facility] Comment on above: Order Comment: can s traight cath if needed. Performed By: #### 1 [id number] ####[address] [address] Ketones (U) [Mass/Vol] Negative Normal Negative [facility] Comment on above: Order Comment: can s traight cath if needed. Performed By: #### 1 [id number] ####[address] [address] [place].plasma/[place].R BC (Bld) [Mass ratio] 0-3 Normal 0-3 [facility] Comment on above: Order Comment: can s traight cath if needed. Performed By: #### 1 [id number] ####[facility] [address] [place] [address] Nitrite Ql (U) Negative Normal Negative [facility] Comment on above: Order Comment: can s traight cath if needed. Performed By: #### 1 [id number] ####[facility] [address] [place] [address] pH (U) 5.5 [pH] Invalid Interpretation Code 5.0-9.0 [facility] Comment on above: Order Comment: can s traight cath if needed. Performed By: #### 1 [id number] ####[facility] [address] [place] [address] Protein (U) [Mass/Vol] Negative Normal Negative [facility] Comment on above: Order Comment: can s traight cath if needed. Performed By: #### 1 [id number] ####[facility] [address] [place] [address] Specific gravity (U) [Rel density] 1.025 Invalid Interpretation Code 1.005-1.030 [facility] Comment on above: Order Comment: can s traight cath if needed. Performed By: #### 1 [id number] ####[facility] [address] [place] [address] Type of Urine collection method Clean Catch Normal [facility] Comment on above: Order Comment: can s traight cath if needed. Performed By: #### 1 [id number] ####[address] [address] Urobilinogen Qn (U) 1.0 {Lei'U}/dL Normal 0.0-1.0 [facility] Comment on above: Order Comment: can s traight cath if needed. Performed By: #### 1 [id number] ####[place] [id number] WBC Auto Ql (U) Negative Normal Negative [facility] Comment on above: Order Comment: can s traight cath if needed. Performed By: #### 1 [id number] ####[place] [id number] WBC LM.HPF (Urine sed) [#/Area] 0-5 Normal 0-5 [facility] Comment on above: Order Comment: can s traight cath if needed. Performed By: #### 1 [id number] ####[address] [address] XR Chest Single Viewon 09-26 XR Chest Single View Normal [facility] eGFRon 09-26-2022 GFR/1.73 sq M.predicted among non-blacks MDRD (S/P/Bld) [Vol rate/Area] 77 mL/min/1.73 m2 Normal >=59 [facility] Comment on above: Order Comment: Order added by Discern Expert. Result Comment: Outpatient Physical Therapist earnest kidney disease could be indicated at eGFR's of less than 60 mL/min/1.73m2. Kidney failure is indicated at less than 15 mL/min/1.73m2. Performed By: #### 1 [id number], [id number], [id number], [id number] ####[facility] [address] [place] [address] Progress Noteson 09-07-2022 Watch Crystal Cutter Authentication Interface Message Text EMERGENCY TRIAGE, TREAT AND TRANSPORT (ET3) DOCUMENTATION OF TELEHEALTH VISIT Date / Time: 09/06/20222146 Name: Clyde Humphrey : 1945 SSN: [id number] EMS Agency: [facility] [x] Verbal consent obtained [] Implied [...] Completed by: Marcelino Echavarria MD Normal [employer] Q - CULTURE,URINE,ROUTINEon 06-23-2021 CULTURE, URINE, ROUTINE SEE NOTE Normal [facility] Animal Caretaker Comment on above: Order Comment: [facility] performed at: [facility] [employer] [employer] [facility], [address] [facility], [address] [place] [address], [phone], Front End Mechanic: Archie Sinha MD [facility] Collection Date/Time: [id number] [facility] Results Received Date/Time: [id number] [facility] Reported Date/Time: Result Comment: CULT URE, URINE, ROUTINE Micro Number: [id number] Test Status: Final Specimen Source: Urine Specimen Quality: Adequate Result: Mixed genital alvin isolated. These superficial bacteria are not indicative of a urinary tract infection. No further organism identification is warranted on this specimen. If clinically indicated, recollect clean-catch, mid-stream urine and transfer immediately to Urine Culture Transport Tube. Performed By: #### 6 [id number] #### [facility] Default [address] [place] [address] Q - CULTURE,URINE,ROUTINEon 05-05-2021 CULTURE, URINE, ROUTINE SEE NOTE Normal [facility] Animal Caretaker Comment on above: Order Comment: [facility] performed at: [employer] [facility], [address] [facility], [address] [place] [address], [phone], Front End Mechanic: Archie Sinha MD [facility] Collection Date/Time: [id number] [facility] Results Received Date/Time: [id number] [facility] Reported Date/Time: [id number] Result Comment: CULT URE, URINE, ROUTINE Micro Number: [id number] Test Status: Final Specimen Source: Urine Specimen Quality: Adequate Result: Growth of mixed alvin was isolated, suggesting probable contamination. No further testing will be performed. If clinically indicated, recollection using a method to minimize contamination, with prompt transfer to Urine Culture Transport Tube, is recommended. Performed By: #### 6 [id number] #### [facility] Default [address] [place] [address] Vital Signs Date Time Vital Sign Value Performing Clinician Facility 01-24-2023 10:00-0400 Hourly Rounding Mbanefo [facility] 01-24-2023 10:00-0400 Promise to Return Mbanefo [facility] 01-24-2023 09:00-0400 Hourly Rounding Mbanefo [facility] 01-24-2023 09:00-0400 Promise to Return Mbanefo [facility] 01-24-2023 08:29-0400 Diastolic blood pressure 73 mm[Hg] Mbanefo [facility] 01-24-2023 08:29-0400 Systolic blood pressure 157 mm[Hg] Mbanefo [facility] 01-24-2023 08:27-0400 Blood Pressure Location Mbanefo [facility] 01-24-2023 08:27-0400 Body temperature 97.7 [degF] Mbanefo [facility] 01-24-2023 08:27-0400 Diastolic blood pressure 73 mm[Hg] Mbanefo [facility] 01-24-2023 08:27-0400 Heart rate 82 /min Mbanefo [facility] 01-24-2023 08:27-0400 Respiratory rate 16 /min Mbanefo [facility] 01-24-2023 08:27-0400 Systolic blood pressure 157 mm[Hg] Mbanefo [facility] 01-24-2023 08:00-0400 Hourly Rounding Mbanefo [facility] 01-24-2023 08:00-0400 Promise to Return Mbanefo [facility] 01-24-2023 00:05-0400 Blood Pressure Location Mbanefo [facility] 01-24-2023 00:05-0400 Body temperature 97.7 [degF] Mbanefo [facility] 01-24-2023 00:05-0400 Diastolic blood pressure 76 mm[Hg] Mbanefo [facility] 01-24-2023 00:05-0400 Heart rate 83 /min Mbanefo [facility] 01-24-2023 00:05-0400 Mean blood pressure 99 mm[Hg] Mbanefo [facility] 01-24-2023 00:05-0400 SaO2% (BldA) [Mass fraction] 97 % Mbanefo [facility] 01-24-2023 00:05-0400 Systolic blood pressure 144 mm[Hg] Mbanefo [facility] 01-23-2023 19:36-0400 Heart rate 81 /min Mbanefo [facility] 01-23-2023 19:36-0400 SaO2% (BldA) [Mass fraction] 96 % Mbanefo [facility] 01-23-2023 19:36-0400 Body temperature 97.34 [degF] Mbanefo [facility] 01-23-2023 19:34-0400 Mean blood pressure 83 mm[Hg] Mbanefo [facility] 01-23-2023 13:00-0400 Body temperature 98.06 [degF] Mbanefo [facility] 01-23-2023 06:55-0400 Blood Pressure Location Mbanefo [facility] 01-23-2023 06:55-0400 Mean blood pressure 89 mm[Hg] Mbanefo [facility] 01-23-2023 06:55-0400 Respiratory rate 16 /min Mbanefo [facility] 01-23-2023 06:55-0400 SaO2% (BldA) [Mass fraction] 93 % Mbanefo [facility] 01-22-2023 23:00-0400 Body temperature 97.88 [degF] Mbanefo [facility] 01-22-2023 23:00-0400 Mean blood pressure 82 mm[Hg] Mbanefo [facility] 01-22-2023 23:00-0400 Respiratory rate 18 /min Mbanefo [facility] 09-01-2023 18:37-0400 Body temperature 97.52 [degF] Mbanefo [facility] 01-22-2023 18:36-0400 Mean blood pressure 81 mm[Hg] Mbanefo [facility] 01-22-2023 16:09-0400 Mean blood pressure 81 mm[Hg] Mbanefo [facility] 01-22-2023 16:07-0400 Body temperature 97.52 [degF] Mbanefo [facility] 01-22-2023 04:50-0400 Heart rate 77 /min Mbanefo [facility] 01-21-2023 21:09-0400 Heart rate 85 /min Mbanefo [facility] 01-21-2023 15:11-0400 Heart rate 78 /min Mbanefo [facility] 12-20-2022 09:37-0400 Hourly Rounding Maycol GEELIN [facility] 12-20-2022 09:37-0400 Promise to Return Maycolyasmine ARRIOLASLIN [facility] 12-20-2022 09:06-0400 Heart rate 65 /min Maycol TSERING [facility] 12-20-2022 09:06-0400 Respiratory rate 20 /min Maycolyasmine ARRIOLASLIN [facility] 12-20-2022 09:06-0400 SaO2% (BldA) [Mass fraction] 92 % Maycol TSERING [facility] 12-20-2022 08:56-0400 Heart rate 61 /min Maycol TSERING [facility] 12-20-2022 08:56-0400 Respiratory rate 20 /min Maycol TSERING [facility] 12-20-2022 08:56-0400 SaO2% (BldA) [Mass fraction] 92 % Maycol TSERING [facility] 12-20-2022 08:51-0400 Hourly Rounding Maycol TSERING [facility] 12-20-2022 08:51-0400 Promise to Return Maycol TSERING [facility] 12-20-2022 08:50-0400 Hourly Rounding Maycol TSERING [facility] 12-20-2022 08:31-0400 Promise to Return Maycol TSERING [facility] 12-20-2022 07:29-0400 Heart rate 60 /min Maycol TSERING [facility] 12-20-2022 07:29-0400 SaO2% (BldA) [Mass fraction] 93 % Maycol TSERING [facility] 12-20-2022 07:28-0400 Body temperature 98.06 [degF] Maycol TSERING [facility] 12-20-2022 07:28-0400 Diastolic blood pressure 69 mm[Hg] Maycol TSERING [facility] 12-20-2022 07:28-0400 Mean blood pressure 94 mm[Hg] Maycol TSERING [facility] 12-20-2022 07:28-0400 Systolic blood pressure 143 mm[Hg] Maycol TSERING [facility] 12-20-2022 03:25-0400 Respiratory rate 16 /min Maycol TSERING [facility] 12-20-2022 00:15-0400 Body temperature 97.7 [degF] Maycol TSERING [facility] 12-20-2022 00:15-0400 Diastolic blood pressure 56 mm[Hg] Maycol TSERING [facility] 12-20-2022 00:15-0400 Systolic blood pressure 135 mm[Hg] Maycol TSERING [facility] 12-19-2022 19:28-0400 Body temperature 98.42 [degF] Maycol TSERING [facility] 12-19-2022 19:27-0400 Diastolic blood pressure 69 mm[Hg] Maycol TSERING [facility] 12-19-2022 19:27-0400 Mean blood pressure 90 mm[Hg] Maycol TSERING [facility] 12-19-2022 19:27-0400 Systolic blood pressure 134 mm[Hg] Maycol TSERING [facility] 12-19-2022 16:26-0400 gluc 111 mg/dL Maycol TSERING [facility] 12-19-2022 16:06-0400 Mean blood pressure 95 mm[Hg] Maycol TSERING [facility] 12-19-2022 16:00-0400 Body temperature 98.06 [degF] Maycol TSERING [facility] 12-19-2022 11:58-0400 gluc 201 mg/dL Maycol TSERING [facility] 12-19-2022 08:18-0400 gluc 93 mg/dL Maycolyasmine ARRIOLASLIN [facility] 12-19-2022 08:00-0400 Body temperature 98.6 [degF] Maycolyasmine ARRIOLASLIN [facility] 12-18-2022 05:46-0400 Blood Pressure Location Maycolyasmine ARRIOLASLIN [facility] 12-18-2022 05:46-0400 Heart rate 67 /min Maycolyasmine ARRIOLASLIN [facility] 12-18-2022 05:00-0400 Body temperature 98.42 [degF] Maycolyasmine ARRIOLASLIN [facility] 12-18-2022 05:00-0400 Mean blood pressure 78 mm[Hg] Maycol TSERING [facility] 12-18-2022 05:00-0400 Respiratory rate 20 /min Maycol TSERING [facility] 12-18-2022 04:00-0400 Mean blood pressure 77 mm[Hg] Maycol TSERING [facility] 12-18-2022 04:00-0400 Respiratory rate 21 /min Maycol TSERING [facility] 12-18-2022 03:00-0400 Mean blood pressure 75 mm[Hg] Maycol TSERING [facility] 12-18-2022 03:00-0400 Respiratory rate 22 /min Maycol TSERING [facility] 12-18-2022 00:09-0400 Heart rate 85 /min Maycol TSERING [facility] 12-17-2022 23:54-0400 Heart rate 86 /min Maycol TSERING [facility] 12-02-2022 14:00-0400 SaO2% (BldA) [Mass fraction] 93 % Maycol TSERING [facility] 12-02-2022 13:00-0400 Hourly Rounding Maycol TSERING [facility] 12-02-2022 13:00-0400 Promise to Return Maycol TSERING [facility] 12-02-2022 12:58-0400 Heart rate 85 /min Maycol TSERING [facility] 12-02-2022 12:58-0400 SaO2% (BldA) [Mass fraction] 88 % Maycol TSERING [facility] 12-02-2022 12:58-0400 Body temperature 97.7 [degF] Maycol TSERING [facility] 12-02-2022 12:58-0400 Diastolic blood pressure 75 mm[Hg] Maycol TSERING [facility] 12-02-2022 12:58-0400 Mean blood pressure 102 mm[Hg] Maycol TSERING [facility] 12-02-2022 12:58-0400 Systolic blood pressure 157 mm[Hg] Maycol TSERING [facility] 12-02-2022 12:10-0400 Hourly Rounding Maycol TSERING [facility] 12-02-2022 12:10-0400 Promise to Return Maycol TSERING [facility] 12-02-2022 11:30-0400 Hourly Rounding Maycolyasmine ARRIOLASLIN [facility] 12-02-2022 11:30-0400 Promise to Return Maycol TSERING [facility] 12-02-2022 08:00-0400 Blood Pressure Location Maycolyasmine ARRIOLASLIN [facility] 12-02-2022 08:00-0400 Diastolic blood pressure 79 mm[Hg] Maycol TSERING [facility] 12-02-2022 08:00-0400 gluc 127 mg/dL Maycol TSERING [facility] 12-02-2022 08:00-0400 Heart rate 76 /min Maycol TSERING [facility] 12-02-2022 08:00-0400 Respiratory rate 20 /min Maycol TSERING [facility] 12-02-2022 08:00-0400 Systolic blood pressure 141 mm[Hg] Maycol TSERING [facility] 12-02-2022 07:46-0400 Heart rate 66 /min Maycol TSERING [facility] 12-02-2022 07:46-0400 Respiratory rate 18 /min Maycol TSERING [facility] 12-02-2022 07:40-0400 Respiratory rate 18 /min Maycol TSERING [facility] 12-01-2022 23:32-0400 Body temperature 97.16 [degF] Maycol TSERING [facility] 12-01-2022 23:32-0400 Diastolic blood pressure 77 mm[Hg] Maycol TSERING [facility] 12-01-2022 23:32-0400 Mean blood pressure 101 mm[Hg] Maycol TSERING [facility] 12-01-2022 23:32-0400 Systolic blood pressure 130 mm[Hg] Maycol TSERIGN [facility] 12-01-2022 20:01-0400 Body temperature 97.16 [degF] Maycol TSERING [facility] 12-01-2022 20:01-0400 Mean blood pressure 101 mm[Hg] Maycol TSERING [facility] 12-01-2022 12:07-0400 Body temperature 97.52 [degF] Maycol TSERING [facility] 12-01-2022 07:30-0400 Body temperature 96.98 [degF] Maycol TSERING [facility] 12-01-2022 06:00-0400 gluc 110 mg/dL Maycol TSERING [facility] 11-30-2022 23:32-0400 FIO2 30 % Maycol TSERING [facility] 11-30-2022 20:04-0400 Mean blood pressure 98 mm[Hg] Maycol TSERING [facility] 11-30-2022 04:38-0400 Mean blood pressure 91 mm[Hg] Maycol TSERING [facility] 11-29-2022 20:16-0400 FIO2 30 % Maycol TSERING [facility] 11-29-2022 19:00-0400 Blood Pressure Location Maycol TSERING [facility] 11-29-2022 08:10-0400 FIO2 30 % Maycol CAGLE [facility] 11-29-2022 04:08-0400 gluc 107 mg/dL Maycol CAGLE [facility] 11-29-2022 04:08-0400 Mean blood pressure 80 mm[Hg] Maycol CAGLE [facility] 11-29-2022 00:16-0400 Heart rate 48 /min Maycol CAGLE [facility] 11-28-2022 22:55-0400 Respiratory rate 19 /min Maycol CAGLE [facility] 11-28-2022 21:45-0400 Respiratory rate 18 /min Maycol CAGLE [facility] 11-28-2022 20:45-0400 Respiratory rate 22 /min Maycolyasmine CAGLE [facility] 11-28-2022 18:55-0400 SaO2% (BldA) [Mass fraction] 95.4 % Maycol CAGLE [facility] 11-28-2022 17:13-0400 Heart rate 59 /min Maycol CAGLE [facility] 09-07-2022 01:10-0400 Diastolic blood pressure 53 mm[Hg] [facility] 09-07-2022 01:10-0400 Heart rate 70 /min [facility] 09-07-2022 01:10-0400 SaO2% (BldA) [Mass fraction] 96 % [facility] 09-07-2022 01:10-0400 Systolic blood pressure 135 mm[Hg] [facility] Encounters Encounter Date Encounter Type Care Provider Facility Start: 02-01-2023 ambulatory Robin Garcia acility:[facility] Start: 01-21-2023 End: 01-24-2023 Evaluation and management of inpatient [place] Start: 01-21-2023 End: 01-24-2023 Evaluation and management of inpatient Steve HUNT [facility] Start: 01-15-2023 End: 01-16-2023 ambulatory Donta COLWICH Facility:[id number] Start: 01-15-2023 End: 01-15-2023 Off-Site [facility] Start: 12-22-2022 End: 12-23-2022 ambulatory Donta COLWICH Facility:CD:[id number] Start: 12-22-2022 End: 12-22-2022 Off-Site [facility] Start: 12-18-2022 End: 12-20-2022 Evaluation and management of inpatient Maycol CAGLE [place] Start: 12-17-2022 End: 12-20-2022 Evaluation and management of inpatient Maycol CAGLE [facility] Start: 12-14-2022 End: 01-16-2023 ambulatory Donta COLWICH Facility:[id number] Start: 12-14-2022 End: 01-16-2023 In-Between Visit [facility] Start: 12-11-2022 ambulatory Donta SHAISTA Facilit y:[facility] Start: 12-03-2022 End: 12-03-2022 Off-Site [facility] Start: 12-03-2022 End: 12-04-2022 ambulatory Donta COLWICH Facility:[id number] Start: 12-02-2022 End: 01-16-2023 ambulatory Donta NOONAN [place] Start: 11-30-2022 ambulatory Facility:[id number] Start: 11-30-2022 ambulatory Facility:[id number] Start: 11-29-2022 ambulatory Facility:[id number] Start: 11-29-2022 End: 12-02-2022 Evaluation and management of inpatient Maycol CAGLE [place] Start: 11-28-2022 End: 12-02-2022 Evaluation and management of inpatient Maycol CAGLE [facility] Start: 11-26-2022 End: 11-27-2022 ambulatory Bienvenido Barroso [place] Start: 11-26-2022 End: 11-26-2022 Patient encounter procedure Bienvenido Barroso [facility] Start: 09-26-2022 End: 09-28-2022 ambulatory UNKNOWN PROVIDER Facility:[facility] Start: 09-07-2022 End: 09-08-2022 ambulatory UNKNOWN PROVIDER [facility] Start: 2022 End: 2022 ambulatory [facility] Emergenc y Triage, Treat and Transport Start: 2022 End: 2022 Emergency department patient visit [facility]3 [facility] Emergency Triage, Treat and Transport Comment [...] Visi t (G0439) Annual Wellness Visit (G0439) [facility] Start: 05-14-2018 Pneumococcal vaccination Pneum ococcal Vaccine(s) (65+ yrs) (2 - PPSV23 if available, else PCV20) [facility] Start: 1994 Shingles (RZV) Vacci ne (1 of 2) Shingles (RZV) Vaccine (1 of 2) [facility] Start: 1962 Hepatitis C screening Hepatitis C An tibody [facility] Start: 1962 Tetanus + diphtheria + acellular pertussis vaccine (product) Tdap Booster [facility] Immunizations Immunization Date Immunization Notes Care Provider Ryder pitt 03-12-2022 SARS-CoV-2 (COVID-19 ) mRNAMUL.ORD![id number] Donta SHAISTA [facility] 03-17-2021 Influenza, injectabl e, high-dose seasonal, quadrivalent, 0.7 mL, preservative free (LAG=734) [facility] 07-15-2020 Pfizer (12+ yrs) SARS-COV-2 (COVID-19) vaccine, mRNA, spike protein, LNP, pres. free, 30 mcg/0.3mL dose (VTQ=706) [facility] 06-26-2020 Pfizer (12+ yrs) SARS-COV-2 (COVID-19) vaccine, mRNA, spike protein, LNP, pres. free, 30 mcg/0.3mL dose (XCD=971) [facility] 06-23-2019 influenza, high dose seasonal, preservative-free [facility] 05-14-2017 influenza, high dose seasonal, preservative-free [facility] 05-14-2017 pneumococcal conjuga te vaccine, 13 valent [facility] 04-04-2014 influenza, injectabl e, madin cee canine kidney, preservative free [facility] NEGATED: Highlighted row has not occurred!06-15-2014 pneumococcal polysaccharide vaccine, 23 valent Bienvenido Barroso [facility] Comment on above: Result Note: pt had vaccine last year per Payers Date Payer Category Payer Self-pay 2022 Unknown [id number] 2022 Medicare [employer] [id number] 2022-Present [address] [place] [address] Medicare [id number] 2022 Unknown [id number] 1945 Unknown [id number] 2.16.840.1.958944.3.579.2.732 1944 Unknown [id number] 2.16.840.1.966014.3.579.2.732 1944 Unknown [id number] 2.16.840.1.817230.3.579.2.356 1944 Unknown [id number] 2.16.840.1.697211.3.579.2.356 1944 Unknown [id number] 2.16.840.1.555495.3.579.2.356 1944 Unknown [id number] 2.16.840.1.907445.3.579.2.72 1944 Unknown [id number] 2.16.840.1.068138.3.579.2.72 1944 Unknown [id number] 2.16.840.1.508148.3.579.2.72 1944 Unknown [id number] 2.16.840.1.763347.3.579.2.72 1944 Unknown [id number] 2.16.840.1.723199.3.579.2.72 1944 Unknown [id number] 2.16.840.1.447193.3.579.2.72 1944 Unknown [id number] 2.16.840.1.733617.3.579.2.727 1944 Unknown [id number] 2.16.840.1.358926.3.579.2727 1944 Unknown [id number] 2.16.840.1.826903.3.579.2.727 1944 Unknown [id number] 2.16.840.1.394267.3.579.2.727 1944 Unknown [id number] 2.840.1.519261.3.579.2.727 1944 Unknown [id number] 2.16840.1.534922.3.579.2.72 Social History Date Type Detail Facility Tobacco smoking status TXIS Tobacco smoking consumption unknown [facility] Start: 1945 Sex Assigned At Not [facility] Start: 04-24-2021 Tobacco smoking status Ex-smoker (finding) [facility] Sex Assigned At Male [facility] Functional Status Date Assessment Result Facility 01-21-2023 Functional Status No [facility] 01-21-2023 Functional Status [facility] 12-18-2022 Functional Status N/A [facility] 12-17-2022 Functional Status [facility] 11-29-2022 Functional Status N/A [facility] 11-28-2022 Functional Status [facility] Clinical Notes 09-07-2022 to 01-24-2023 Note Date & Type Note Facility 01-24-2023 Evaluation + Plan note Extrac gi from: Title:Discharge Note Author:New Johnson DO Date:01/24/23 Discharge To, Anticipated II - Residential Unit Discharged to - Home independently Transported [...] When Contact Information Dharmesh POTTS, Bienvenido Chavira, [address] [address]- Additional Instructions: Dementia, Uioe-ve-Pylz Extracted from: Title:APSO Note Author:New Johnson DO e:01/23/23 1. Generalized weakness (R53 .1: Weakness) IV fluids, trend BUN and creatinine PT/OT Currently awaiting pre-CERT for placement 2. Alzheimers disease (G30.9: Alzheimer's disease, unspecified) Continue Seroquel 3. 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 Generalized weakness (R53 .1: Weakness) IV fluids, trend BUN and creatinine PT/OT We will likely need placement Ordered: Initial Hospital Care/Day Moderate 55 Minutes [id number] Sbsq Hospital Care/Day Straight Fwd 25 Minutes [id number] 2. Alzheimers disease (G30.9: Alzheimer's disease, unspecified) Continue Seroquel 3. 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 COPD [...] Ordered: Initial Hospital Care/Day Moderate 55 Minutes 00951 2. Alzheimers disease (G30.9: Alzheimer's disease, unspecified) Continue Seroquel 3. 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 [facility]09-03-2023 [facility] HospitalComment on above:Result Comment: Electronically Signed By: New Johnson DO.br\Date and Time Signed: 01/24/23 09:57 [id number] Hospital Discharge instructions Patient Education 01/24/2023 09:54:03 Dementia, Lesq-vi-Zmel Dementia Dementia is a condition that affects [...] Follow these instructions at home: Medicines Take vnyy-yts-xcxmpsq and prescription medicines only as told by [...] find more information Alzheimer's Association: www.alz.org National [place] on Aging: www.susie.nih.gov/alzheimers World Health Organization: www.who.int [...] room or: Call your local emergency services (911 in the [place] Call the National Suicide Prevention Lifeline at or 098 in the [place] This is open 24 hours a day. Text the Crisis Text Line at 301508. Summary Dementia often affects memory and thinking. [...] provider. Document Revised: 12/03/2021 Document Reviewed: 09/23/2020 [employer] Patient Education 2022 [employer]. Follow Up Care 01/21/2023 15:06:04 With:Dharmesh POTTS, Bienvenido Chavira, SHEA Address: [place] [address]- When: Unknown [facility]08-31-2023 NoteFishMt. Washington Pediatric HospitalComment on above:Result Comment: Electronically Signed By: New Johnson DO.br\Date and Time Signed: 01/21/23 17:53 [id number] Evaluation + Plan note Extracted from: Title:Discharge Note Author:MICHAEL POTTSJamir Gerry e:12/20/22 stable Discharge To, Anticipated II - Residential Unit Discharged to - care home unit SNF Discharge Diet(s): Calorie Controlled- 1800 Calorie Diet (12/20/22 09:46:00) Prescriptions alprazolam 0.5 mg Tab, 0.5 mg= 1 tab(s), Oral, Daily, PRN aspirin 81 mg Oral EC Tab, 81 mg= 1 tab(s), Oral, Daily Augmentin 875 mg oral tablet, 1 tab(s), Oral, q12hr ergocalciferol 50,000 intl units Cap, 21983 International_Unit= 1 cap(s), Oral, q7day furosemide 40 [...] BID With When Contact Information Bienvenido Barroso [employer] [place], [place] [address] Business (1) Additional Instructions: Call for followup [...] ultimately benefit being only slightly on the personal driver side 5. Coronary artery disease (I25.10: Atherosclerotic heart disease of hughes coronary artery without angina pectoris) Patient had [...] 9. Pulmonary hypertension (I27.20: Pulmonary hypertension, unspecified) [place] secondary to above 10. Hypertension (I10: Essential (primary) hypertension) Await reconciliation of meds from the extended care facility. He did have 1 blood pressure of 106 systolically in the emergency department. With the fall and suspicion of intravascular depletion will transiently hold antihypertensives if it is identified he is actually on antihypertensives at the [facility]. On a prior hospitalization he [...] recent hospitalization has been titrated at the [facility]. He was recently placed on Xanax, discontinue that at this time. Awaiting verification of meds from the [facility] facility 15. Encounter for deep vein thrombosis [...] patient's RN it was advised that the long term was planning on sending a copy of [...] Tests Pending * Legionella Antigen Urine 12/18/22 [facility]07-30-2023 NoteCRM entered the room to discuss dc planning. PCP, DME and insurance discussed. Patient is alert andinvolved in plan of care. Contact information given and whiteboard updated. Pt will dc to [facility] room [facility] today. CRM to follow.[facility] InstituteComment on above:Result Comment: Electronically Signed By: Natalie Grant\.br\Date and Time Signed: 12/20/22 11:52 [id number] [facility] InstituteComment on above: Result Comment: Electronically Signed By: Jamir MCKINNEY MD\.br\Date and Time Signed: 12/20/22 10:[id number] Hospital Discharge instructions Patient Education 12/20/2022 09:48:09 [...] a long-term care facility, such as a long term. Having your kidneys filtered through hemodialysis in [...] hard liquor (44 mL). General instructions Take fgrq-wjp-rlmfdqb and prescription medicines as told by your [...] are not available, use an alcohol-based hand block cleaner. ?Make sure your health care providers wash [...] and water or with alcohol- based hand block cleaner before and after caring for sick people. [...] bacteria common in health care settings. Take zmdf-xlf-wonvknq and prescription medicines as told by your [...] provider. Document Revised: 05/31/2022 Document Reviewed: 05/31/2022 [employer] Patient Education 2022 Inuvo Follow Up Care 12/17/2022 23:50:19 With:Bienvenido Barroso Address: [address] [place] [address] [facility] (1) When: Unknown Comments:Call for followup appointment [facility]07-28-2023 [facility]:Result Comment: Electronically Signed By: Maycol CAGLE DO\.br\Date and Time Signed: 12/18/22 06:27 [id number] NotePike Community HospitalComment on above:Result Comment: Electronically Signed By: Lizeth Cedeno MD\.br\Date and Time Signed: 12/02/22 12:28 [id number] Evaluation + Plan noteExtracted from: Title:Discharge Note Author:Lizeth Cedeno MD ate:12/02/22 Stable Discharge To, Anticipated II - Residential Unit Discharged to - Home with family care Transported by, Anticipated - Family Discharge Diet(s): Other: Limit fluids to 1800 ml/day (12/02/22 12:23:00) Prescriptions aspirin 81 mg Oral EC Tab, 81 mg= 1 tab(s), Oral, Daily ergocalciferol 50,000 intl units Cap, 31650 International_Unit= 1 cap(s), Oral, q7day furosemide 40 [...] Bedtime With When Contact Information Joanie Jiménez [facility] [address] [place] [address]- Business (1) Additional Instructions: HFpEF Dave [place] [address] [place] [address]- Business (1) Additional Instructions: Cog impariment, Alzhiemer's Bienvenido Barroso In [address] [place] [address]- Business (1) Additional Instructions: Extracted from: Title:UPDATE [...] of CAD and previous coronary interventions in [place] with no indication of recurrent CAD, would not recommend investigation for ischemic heart disease at this time Extracted from: Title:APSO Note Author:Pao POTTS, [place] Date: Acute respiratory failure wi th hypoxia [...] Extracted from: Title:SOAP Note: Simple Author:Marcus POTTS, Willi am P Date:11/29/22 Impression and Plan CONSULT DICTATED CAME [...] mild congestion - Wean o2 as able, pulm avery. -check echo Ordered: [facility] Care/Day High 50 Minutes 12519 2. Acute on chronic diastolic heart failure (I50.33: Acute on chronic diastolic (congestive) heart failure) c/w spironolactone and lasix IV 40mg qd -strict I/Os and daily weight - last echo was done 2014 with EF of 50%. will recheck this visit Ordered: [facility] Care/Day High 50 Minutes 39935 3. COPD without exacerbation (J44.9: Chronic obstructive pulmonary disease, unspecified) Ordered: [facility] Care/Day High 50 Minutes 14886 4. Weakness (R53.1: Weakness) -pt/ot Ordered: [facility] Care/Day High 50 Minutes 30303 5. Sinus bradycardia (R00.1: Bradycardia, unspecified) baseline. last EKG similar. -pt had decreased HR overnight so BB was held. -continue to monitor on tele Ordered: [facility] Care/Day High 50 Minutes 57630 6. Coronary artery disease (I25.10: Atherosclerotic heart disease of hughes coronary artery without angina pectoris) -c/w ASA Ordered: [facility] Care/Day High 50 Minutes 35072 7. Obstructive sleep apnea (G47.33: Obstructive sleep apnea (adult) (pediatric)) -CPAP qHS Ordered: [facility] Care/Day High 50 Minutes 49481 8. Pulmonary hypertension (I27.20: Pulmonary hypertension, unspecified) c/w spironolactone 50mg -lasix 40 mg iv qd -strict I/Os daily weights -check echo Ordered: [facility] Care/Day High 50 Minutes 77883 9. Abdominal pain (R10.9: Unspecified abdominal pain) resolved no complaints this morning Ordered: [facility] Care/Day High 50 Minutes 31326 10. Hypertension (I10: Essential (primary) hypertension) c/w spironolactone Ordered: [facility] Care/Day High 50 Minutes 62274 11. Diabetes (E11.9: Type 2 diabetes mellitus without complications) BGT qACHS -c/w glimepiride Ordered: [facility] Care/Day High 50 Minutes 87405 12. Hyperlipidemia (E78.5: Hyperlipidemia, unspecified) -hold statin due to elevated CK Ordered: [facility] Care/Day High 50 Minutes 31563 13. Chronic anemia (D64.9: Anemia, unspecified) monitor Ordered: [facility] Care/Day High 50 Minutes 99787 14. BPH (benign prostatic hyperplasia) (N40.0: Benign prostatic hyperplasia without lower urinary tract symptoms) c/w tamsulosin Ordered: [facility] Care/Day High 50 Minutes 81276 15. Dementia (F03.90: Unspecified dementia, unspecified severity, without behavioral disturbance, psychotic disturbance, mood disturbance, and anxiety) -c/w seroquel 25mg qHS Ordered: [facility] Care/Day High 50 Minutes 26161 16. Encounter for deep vein thrombosis (DVT) prophylaxis (Z29.9: Encounter for prophylactic measures, unspecified) Ordered: [facility] Care/Day High 50 Minutes 64656 17. Elevated CK (R74.8: Abnormal levels of other serum enzymes) -CK 1000 this morning. will monitor and hold statin - will not give fluids due to current diuresis Ordered: [facility] Care/Day High 50 Minutes 13553 COPD with acute exacerbation (J44.1: Chronic obstructive [...] artery disease (I25.10: Atherosclerotic heart disease of hughes coronary artery without angina pectoris) Continue aspirin, [...] Scheduled Provider:Donta NOONAN MD Location:Extended Care Appointment Type:[facility]07-10-2023 NoteOT [facility] six clicks score 15/24 = SNF. Patient requires assist w/ all transfers and self care at this time. Inpatient OT services to follow daily to progress w/ functional skills.[facility]07-[facility] NotePT Evaluation completed with an [facility] score of 16/24. Pt requires Min A for bed mobility and min/Mod A to stand. Pt was able to take two sidesteps. Will follow daily, but SNF [facility] CenterComment on above:Result Comment: Electronically Signed By: Maycol CAGLE DO\.br\Date and Time Signed: 11/29/22 01:33 [id number] Hospital Discharge instructions Follow Up Care 11/28/2022 17:10:04 With:Joanie Jiménez Address: Replaced by [facility] [address] [place] [address]- Business (1) When: Unknown Comments:HFpEF With:Dave Cruz Address: [address] [place] [address]- Business (1) When: Unknown Comments:Cog impariment, Alzhiemer's With:Bienvenido Barroso Address: [address] [place] [address]- Business (1) When: Unknown [facility]05-20-2023 [facility] CenterComment on above:Result Comment: Electronically Signed By: Adeline COLEMAN\.br\Date and Time Signed: 10/10/22 17:53 EDT\.br\Electronically Co- Signed By: Ganesh Minaya MD\.br\Date and Time Co-Signed: 10/10/22 18:51 EDT 09-27-2022 [facility] CenterComment on above:Result Comment: Electronically Signed By: Adeline COLEMAN\.br\Date and Time Signed: 09/26/22 21:20 EDT\.br\Electronically Co-Signed By: Ganesh Minaya MD\.br\Date and Time Co-Signed: 09/27/22 08:00 [id number] History of Present illness Narrative* Marcelino Echavarria MD - 09/07/2022 1:12 AM EDT Images from the original note were not included. EMERGENCY TRIAGE, TREAT AND TRANSPORT (ET3) DOCUMENTATION OF TELEHEALTH VISIT Date / Time: 09/06/20222146 Name: Clyde Humphrey : 1945 SSN: [id number] EMS Agency: [facility] [x] Verbal consent obtained [] Implied [...] may have caused falls, despite my recommendation POCydney still wishes pt not be transported, does agree to callPCP in AM for further eval, advised to go to nearest ED if AMS [place] PETERS weakness Disposition Supported by Telehealth Assessment: ET3 transport decisions: Refused transport EMS Disposition Reported: Same ET3 Encounter Completed by: Marcelino Echavarria MD documented in this encounterMetroHealthEvaluation + Plan note No data available for this section [facility]* Diagnosis Fall, initial encounter- Primary [facility] No data available for this section [facility] HospitalProgress note No data available for this section [facility] Summary Purpose Family History No [...] section and content) DATE CREATED AUTHOR 06/26/2021 [facility] dical Specialist DATE CREATED AUTHOR AUTHOR'S ORGANIZ ATION 09/30/2022 [facility] DATE CREATED AUTHOR AUTHOR'S ORGANIZ ATION 12/05/2022 [facility] DATE CREATED AUTHOR AUTHOR'S ORGANIZ ATION 03/26/2023 [facility] DATE CREATED AUTHOR AUTHOR'S ORGANIZ ATION 05/04/2023 [facility] Reason for Visit (unrecogniz ed section and content) Reason Comments Fall Patient Care team informatio n (unrecognized section and content) Personnel Name: Bienvenido Barroso MD Address: Address: [address] [place] [address] Name: Andrew Rodriguez Personnel Name: Bienvenido Barroso MD Address: Address: [address] [place] [address] Name: Andrew Rodriguez Personnel Name: Bienvenido Barroso MD Address: Address: [address] [place] [address] Name: Andrew Rodriguez Personnel Name: Bienvenido Barroso MD Address: Address: [address] [place] [address] Name: Andrew Rodriguez Personnel Name: Bienvenido Barroso MD Address: Address: [address] [place] [address] Name: Andrew Rodriguez Personnel Name: Bienvenido Barroso MD Address: Address: [address] [place] [address] Name: Andrew Rodriguez Personnel Name: Bienvenido Barroso MD Address: Address: [address] [place] [address] Name: Andrew Rodriguez Personnel Name: Bienvenido Barroso MD Address: Address: [address] [place] [address] Name: Luis Gil LPN Name: Andrew Rodriguez [...] BE BASED ON THE PRIMARY CLINICAL RECORDS. [employer] provides no warranty or guarantee of the accuracy or completeness of information in this document.
--- OUTSIDE RECORDS SUMMARY | 2023-08-27 08:21 | XMS_ITS | CCD ---
Author Organization [facility] Care Team Providers Care Stereotype Caster Name Role Phone Unavailable Primary Care Provider Unavailabl e PROVIDER, UNKNOWN Attending Unavailable PROVIDER, UNKNOWN Admitting Unavailable PROVIDER, UNKNOWN Attending Unavailable PROVIDER, UNKNOWN Admitting Unavailable Bienvenido Barroso Primary Care Physician [phone] Andrew Rodriguez Unavailable Unavailable Luis Gil Unavailable [...] Refills(s) 0 Start Date: 06/16/14 Status: Ordered [id number] actuat albuterol 0.09 mg/actuat metered dose inhaler (4 sources) beta2-Adrenergic Agonist Start: 04-27-2021 take 2 puff(s) by inhalation four times daily for wheezing Pro-Air HFA CFC free 90 mcg/inh MDI 2 puff(s), Inhalation, QID for wheezing, 8.5 gram, Refill(s) 0, [facility], 167.6, cm, 04/24/21 18:14:00 EST, Height/Length [...] Daily, # 30 tab(s), Refills(s) 0, Pharmacy: [facility], 167, cm, 11/28/22 17:20:00 EDT, Height/Length [...] Daily, # 90 tab(s), Refills(s) 4, Pharmacy: [facility], 160, cm, 12/18/22 0:04:00 EDT, Height/Length [...] Daily, # 90 tab(s), Refills(s) 4, Pharmacy: [facility], 160, cm, 12/18/22 0:04:00 EDT, Height/Length [...] Daily, # 90 tab(s), Refills(s) 1, Pharmacy: [facility], 160, cm, 12/18/22 0:04:00 EDT, Height/Length Dosing, 94, kg, 12/18/22 0:04:00 EDT, Weight Dosing Start Date: 01/15/23 Status: Ordered Start: 12-02-2022 take 1 tablet by ruperto th once daily furosemide 40 mg Tab 40 mg = 1 tab(s), Oral, Daily, # 30 tab(s), Refills(s) 0, Pharmacy: [facility], 167, cm, 11/28/22 17:20:00 EDT, Height/Length [...] day, # 30 tab(s), Refills(s) 0, Pharmacy: [facility], 167, cm, 09/26/22 10:09:00 EDT, Height/Length [...] qHS, # 210 tab(s), Refills(s) 1, Pharmacy: [facility], 160, cm, 12/18/22 0:04:00 EDT, Height/Length Dosing, 94, kg, 12/18/22 0:04:00 EDT, Weight Dosing Start Date: 01/15/23 Status: Ordered Start: 12-14-2022 quetiapine 25 mg Tab See Instructions, 25 mg qAM- 75 mg q1600 - 75mg qHS, Refills(s) 0 Start Date: 12/14/22 Status: Ordered Start: 12-02-2022 take 1 tablet by [facility] at bedtime quetiapine 50 mg oral tablet 50 mg = 1 tab(s), Oral, Bedtime, # 30 tab(s), Refills(s) 0, Pharmacy: [facility], 167, cm, 11/28/22 17:20:00 EDT, Height/Length Dosing, 99.8, kg, 11/28/22 17:20:00 EDT, Weight Dosing Start Date: 12/02/22 Status: Ordered Start: 05-31-2021 take 1 tablet by [facility] once daily quetiapine 50 mg oral tablet 50 mg = 1 tab(s), Oral, Daily, # 30 tab(s), Refills(s) 0 Start Date: 05/31/21 Status: Ordered spironolactone 25 mg oral tablet (8 sources) Aldosterone Antagonist Start: 01-15-2023 take 1 tablet by mouth once daily spironolactone 25 mg Tab 25 mg = 1 tab(s), Oral, Daily, # 90 tab(s), Refills(s) 1, Pharmacy: [facility], 160, cm, 12/18/22 0:04:00 EDT, Height/Length Dosing, 94, kg, 12/18/22 0:04:00 EDT, Weight Dosing Start Date: 01/15/23 Status: Ordered Start: 06-16-2014 take 1 tablet by [facility] once daily spironolactone 50 mg Tab [...] week(s), # 8 cap(s), Refills(s) 0, Pharmacy: [facility], 167, cm, 11/28/22 17:20:00 EDT, Height/Length [...] 06-16-2014 take 1 capsule by [facility] twice daily tamsulosin 0.4 mg Cap 0.4 [...] Coronary atherosclerosis; Translations: [Atherosclerotic heart disease of [place] coronary artery without angina pectoris] Onset: 11-29-2022 [...] Insurance Correspondenceon 1 05-25-2022 Insurance Correspondence [id number]# 1.00TIFF [facility] Coding Queryon 02-17-2023 Coding Query [facility] Discharge Instructionson Discharge Instructions [id number]# 1.00CD:127 Normal [facility] Transfer Documentson 023 Transfer Documents [id number]# 1.00CD:127 Normal [facility] Discharge Note-Nursingon Discharge Note-Nursing Normal [facility] Interdisciplinary Note - Santosh e Manageron 01-23-2023 Interdisciplinary Note - Education Coordinator [facility] Comment on above: Result Comment: Elec tronically Signed By: Norma Garcia RN\.br\Date and Time Signed: 01/23/23 16:29 EDT Progress Note-Physicianon Progress Note-Physician Normal F [facility] Comment on above: Result Comment: Elec tronically Signed By: New Johnson DO.br\Date and Time Signed: 01/23/23 09:50 EDT Auto Diffon 01-22-2023 Basophils/100 WBC (Bld) 0.7 % Normal 0.0-2.0 [facility] Comment on above: Order Comment: Order Added by Discern Expert. Performed By: #### 2 086778, [id number], 1463900, 6263010 ####[address] [place] [address] Basophils/Leukocytes Auto (Bld) [Pure # fraction] 0.1 E9/L Normal 0.0-0.2 [facility] Comment on above: Order Comment: Order Added by Discern Expert. Performed By: #### 2 181589, 34402285, 3124570, 7078921 ####[address] [address] Eosinophils/100 WBC (Bld) 9.3 % High 0.0-8.0 [facility] Comment on above: Order Comment: Order Added by Discern Expert. Performed By: #### 2 380527, 43445834, 3398627, 1212555 ####[address] [address] Eosinophils/Leukocytes Auto (Bld) [Pure # fraction] 0.8 E9/L High 0.0-0.5 [facility] Comment on above: Order Comment: Order Added by Discern Expert. Performed By: #### 2 801027, 63320806, 7973110, 2858700 ####[address] [address] Lymphocytes/100 WBC (Bld) 17.2 % Normal 14.0-50.0 [facility] Comment on above: Order Comment: Order Added by Discern Expert. Performed By: #### 2 658598, 96929781, 9793624, 2075627 ####[address] [address] Lymphocytes/Leukocytes Auto (Bld) [Pure # fraction] 1.4 E9/L Normal 1.0-4.0 [facility] Comment on above: Order Comment: Order Added by Discern Expert. Performed By: #### 2 590979, 42812244, 2833798, 2791720 ####[address] [address] Monocytes/100 WBC (Bld) 10.0 % Normal 4.0-14.0 [facility] Comment on above: Order Comment: Order Added by Discern Expert. Performed By: #### 2 493278, 98352710, 1546924, 7667385 ####[address] [place] [address] Monocytes/Leukocytes Auto (Bld) [Pure # fraction] 0.8 E9/L Normal 0.2-1.0 [facility] Comment on above: Order Comment: Order Added by Discern Expert. Performed By: #### 2 434379, 53322177, 6764215, 5058155 ####[address] [address] Neutrophils/100 WBC (Bld) 62.8 % Normal 36.0-75.0 [facility] Comment on above: Order Comment: Order Added by Discern Expert. Performed By: #### 2 567746, 84823689, 6087019, 6491146 ####[address] [address] Neutrophils/Leukocytes Auto (Bld) [Pure # fraction] 5.2 E9/L Normal 2.0-7.5 [facility] Comment on above: Order Comment: Order Added by Bethany Expert. Performed By: #### 2 245327, 25459823, 1871935, 2487001 ####[address] [address] CBC w/ Auto Diffon Erythrocyte distribution width (RBC) [Ratio] 15.2 % High 10.9-14.2 [facility] Comment on above: Performed By: #### 2 949234, 70142923, 6425705, 9461000 ####[address] [place] [address] Hematocrit (Bld) [Volume fraction] 43.1 % Normal 37.7-49.0 [facility] Comment on above: Performed By: #### 2 139098, 57735257, 9737945, 9042669 ####[address] [address] Hemoglobin (Bld) [Mass/Vol] 14.6 g/dL Normal 13.5-17.5 [facility] Comment on above: Performed By: #### 2 291616, 92533300, 8799876, 0493575 ####[facility] [address] [place] [address] MCH (RBC) [Entitic mass] 28.1 pg Normal 27.0-34.0 [facility] Comment on above: Performed By: #### 2 252663, 95414764, 5143800, 1806921 ####[facility] [address] [place] [address] MCHC (RBC) [Mass/Vol] 33.8 g/dL Normal 31.4-36.0 [facility] Comment on above: Performed By: #### 2 882765, 96217118, 1762485, 6945550 ####[address] [address] MCV (RBC) [Entitic vol] 83.2 fL Normal 80.0-100.0 F [facility] Comment on above: Performed By: #### 2 560348, 73847736, 1552201, 7925360 ####[facility] [address] [place] [address] Platelet mean volume (Bld) [Entitic vol] 8.6 fL Normal 6.4-10.8 [facility] Comment on above: Performed By: #### 2 487918, 92648136, 2755410, 0622049 ####[address] [address] Platelets (Bld) [#/Vol] 221.0 E9/L Normal 150.0-500.0 [facility] Comment on above: Performed By: #### 2 002573, 81076798, 3069167, 1432465 ####[facility] [address] [place] [address] RBC (Bld) [#/Vol] 5.2 E12/L Normal 4.3-5.9 [facility] Comment on above: Performed By: #### 2 262393, 11498146, 7177533, 0546698 ####[facility] [address] [place] [address] WBC corrected for nucl RBC Auto (Bld) [#/Vol] 8.3 E9/L Normal 4.0-11.0 [facility] Comment on above: Performed By: #### 2 074156, 31399364, 2248888, 6778814 ####[facility] [address] [place] [address] CHEMISTRYOrdered By: Lab ROP User on 01-22-2023 Glucose [Mass/Vol] 121 mg/dL High 55 - 99 mg/dL [facility] P[facility] Subsection Comment on above: Result Comment: Gareth guerrero RN/ POC Device SN [id number] Invalid Interpretation Code [facility] P[facility] Subsection POC User ID [id number] Invalid Interpretation Code [facility] P[facility] Subsection POC Username LATONIA MALHOTRA Invalid Interpretation Code [facility] Subsection CHEMISTRYOrdered By: SYSTEM SYSTEM on [...] 56 mL/min/1.73 m2 Low >=59mL/min/ 1.73 m2 [facility] Chem S Globulin (S) [Mass/Vol] 3.6 g/dL [...] 01-22-2023 Albumin [Mass/Vol] 3.7 g/dL Normal 3.3-5.0 [facility] Comment on above: Performed By: #### 2 465732, 90700031, 4708647, 4789304 ####[facility] [address] [place] [address] Albumin/Globulin (S) [Mass conc ratio] 1.0 Low 1.1-2.2 [facility] Comment on above: Performed By: #### 2 935421, 66310076, 4646152, 5195352 ####[facility] [address] [place] [address] ALP [Catalytic activity/Vol] 47 Int._Unit/L Normal 21-98 [facility] Comment on above: Performed By: #### 2 335243, 07820270, 8689488, 7958147 ####[facility] [address] [place] [address] ALT No additional P-5'-P [Catalytic activity/Vol] 21 Int._Unit/L Normal 6-46 [facility] Comment on above: Performed By: #### 2 818034, 34004556, 2303447, 2831079 ####[facility] [address] [place] [address] Anion gap [Moles/Vol] 15 mmol/L Normal 6-16 [facility] Comment on above: Performed By: #### 2 094307, 02674416, 5444311, 7462611 ####[facility] [address] [facility] [place] [address] AST [Catalytic activity/Vol] 21 Int._Unit/L Normal 5-43 [facility] Comment on above: Performed By: #### 2 895047, 44425671, 1641652, 3110390 ####[facility] [address] [place] [address] Bilirubin [Mass/Vol] 0.8 mg/dL Normal 0.0-1.1 [facility] Comment on above: Performed By: #### 2 609207, 14657712, 8406144, 8597398 ####[facility] [address] [place] [address] Calcium [Mass/Vol] 9.6 mg/dL Normal 8.9-11.1 [facility] Comment on above: Performed By: #### 2 605521, 02294325, 1981896, 1001526 ####[facility] [address] [place] [address] Chloride [Moles/Vol] 97 mmol/L Low 101-111 [facility] Comment on above: Performed By: #### 2 785899, 09462888, 7429667, 2268041 ####[facility] [address] [place] [address] CO2 [Moles/Vol] 30 mmol/L Normal 21-31 [facility] Comment on above: Performed By: #### 2 224342, 58293866, 2651914, 9051155 ####[facility] [address] [place] [address] Creatinine [Mass/Vol] 1.3 mg/dL Normal 0.5-1.3 [facility] Comment on above: Performed By: #### 2 138195, 69239590, 9938683, 1456027 ####[facility] [address] [place] [address] Globulin (S) [Mass/Vol] 3.6 g/dL Normal 1.4-4.0 [facility] Comment on above: Performed By: #### 2 023002, 46287313, 7356888, 3233682 ####[facility] [address] [place] [address] Glucose [Mass/Vol] 124 mg/dL Normal 55-199 [facility] Comment on above: Result Comment: If t his glucose result represents a fasting glucose, interpretation should refer to the following reference range: 55-99 mg/dL Performed By: #### 2 020799, 96958136, 0874798, 1246245 ####[facility] [address] [place] [address] Potassium [Moles/Vol] 4.0 mmol/L Normal 3.5-5.3 [facility] Comment on above: Performed By: #### 2 999734, 18573685, 8584710, 7641894 ####[facility] [address] [place] [address] Protein [Mass/Vol] 7.3 g/dL Normal 6.0-7.8 [facility] Comment on above: Performed By: #### 2 017135, 96818153, 9657341, 3668860 ####[facility] [address] [place] [address] Sodium [Moles/Vol] 138 mmol/L Normal 135-145 [facility] Comment on above: Performed By: #### 2 010936, 05822962, 1185071, 2871581 ####[facility] [address] [place] [address] Urea nitrogen [Mass/Vol] 42 mg/dL High 5-21 [facility] Comment on above: Performed By: #### 2 662927, 42274885, 9149670, 1248018 ####[facility] [address] [place] [address] Urea nitrogen/Creatinine [Mass ratio] 32 No Units High 10-20 [facility] Comment on above: Performed By: #### 2 940514, 39032967, 7531849, 6216358 ####[facility] [address] [place] [address] Capillary Glucose POCon Glucose [Mass/Vol] 121 mg/dL High 55-99 [facility] Comment on above: Result Comment: Gareth guerrero RN/ Performed By: #### 2 [id number] ####[facility] [address] [place] [address] Coding Queryon 01-22-2023 Coding Query Normal [facility] HEMATOLOGYOrdered By: SYSTEM SYSTEM on 01-22-2023 Basophils/100 [...] Correspondence Off iceon 01-22-2023 Insurance Correspondence Office [id number] .00CD:127 Normal [facility] Interdisciplinary Note - Santosh e Manageron 01-22-2023 Interdisciplinary Note - Education Coordinator Normal [facility] Comment on above: Result Comment: Elec tronically Signed By: Downs, Natalie R\.br\Date and Time Signed: 01/22/23 11:13 EDT Interdisciplinary Note - Murphy n 01-22-2023 Interdisciplinary Note - OT Normal [facility] Interdisciplinary Note - PTo n 01-22-2023 Interdisciplinary Note - PT Normal [facility] Message from Medicareon Message from Medicare [id number]#1 .00CD:127 Normal [facility] Progress Note-Physicianon Progress Note-Physician Normal F [facility] Comment on above: Result Comment: Elec tronically Signed By: New Johnson DO\.br\Date and Time Signed: 01/22/23 14:15 EDT eGFRon 01-22-2023 GFR/1.73 sq M.predicted among non-blacks MDRD (S/P/Bld) [Vol rate/Area] 56 mL/min/1.73 m2 Low >=59 [facility] Comment on above: Order Comment: Order added by Discern Expert. Result Comment: Federal Mediation Commissioner earnest kidney disease could be indicated at eGFR's of less than 60 mL/min/1.73m2. Kidney failure is indicated at less than 15 mL/min/1.73m2. Performed By: #### 2 572148, 19184087, 9009247, 5614724 ####[facility] [address] [place] [address] Auto Diffon 01-21-2023 Basophils/100 WBC (Bld) 0.9 % Normal 0.0-2.0 [facility] Comment on above: Order Comment: Order Added by Discern Expert. Performed By: #### 2 606683, 0313900, 47253464, 29175508, 8830976, 3763823 ####[facility] [address] [place] [address] Basophils/Leukocytes Auto (Bld) [Pure # fraction] 0.1 E9/L Normal 0.0-0.2 [facility] Comment on above: Order Comment: Order Added by Discern Expert. Performed By: #### 2 900843, 3255619, 83596432, 55902694, 7181639, 3649965 ####[facility] [address] [place] [address] Eosinophils/100 WBC (Bld) 3.3 % Normal 0.0-8.0 [facility] Comment on above: Order Comment: Order Added by Discern Expert. Performed By: #### 2 994026, 4382040, 00344140, 31437847, 1922572, 1889994 ####[address] [place] [address] Eosinophils/Leukocytes Auto (Bld) [Pure # fraction] 0.4 E9/L Normal 0.0-0.5 [facility] Comment on above: Order Comment: Order Added by Discern Expert. Performed By: #### 2 119437, 4384582, 35593906, 11195612, 2372851, 1298606 ####[address] [address] Lymphocytes/100 WBC (Bld) 10.4 % Low 14.0-50.0 [facility] Comment on above: Order Comment: Order Added by Discern Expert. Performed By: #### 2 675519, 6646927, 85061858, 74532561, 0781485, 9973791 ####[address] [address] Lymphocytes/Leukocytes Auto (Bld) [Pure # fraction] 1.2 E9/L Normal 1.0-4.0 [facility] Comment on above: Order Comment: Order Added by Discern Expert. Performed By: #### 2 627303, 3970854, 63930415, 91155001, 2437879, 5711859 ####[address] [address] Monocytes/100 WBC (Bld) 7.4 % Normal 4.0-14.0 [facility] Comment on above: Order Comment: Order Added by Discern Expert. Performed By: #### 2 530381, 8205489, 69343363, 96444763, 4304559, 1786180 ####[address] [place] [address] Monocytes/Leukocytes Auto (Bld) [Pure # fraction] 0.9 E9/L Normal 0.2-1.0 [facility] Comment on above: Order Comment: Order Added by Discern Expert. Performed By: #### 2 056582, 0898064, 26240598, 33377965, 1794648, 7630695 ####[address] [place] [address] Neutrophils/100 WBC (Bld) 78.0 % High 36.0-75.0 [facility] Comment on above: Order Comment: Order Added by Discern Expert. Performed By: #### 2 233930, 8781193, 07195749, 32921723, 2353827, 1991711 ####[address] [place] [address] Neutrophils/Leukocytes Auto (Bld) [Pure # fraction] 9.1 E9/L High 2.0-7.5 [facility] Comment on above: Order Comment: Order Added by Discern Expert. Performed By: #### 2 365117, 7135920, 96128519, 64697361, 3909625, 0931957 ####[facility] [address] [place] [address] BMPon 01-21-2023 Creatinine [Mass/Vol] 1.2 mg/dL Normal 0.5-1.3 [facility] Comment on above: Performed By: #### 2 762745, 3089579, 76463328, 56734000, 1445056, 2225190 ####[facility] [address] [place] [address] Urea nitrogen [Mass/Vol] 38 mg/dL High 5-21 [facility] Comment on above: Performed By: #### 2 421808, 4176378, 11123311, 45905783, 9051777, 8097431 ####[address] [place] [address] Urea nitrogen/Creatinine [Mass ratio] 32 No Units High 10-20 [facility] Comment on above: Performed By: #### 2 956396, 8504862, 37497249, 77953642, 8250359, 5993742 ####[facility] [address] [place] [address] Anion gap [Moles/Vol] 14 mmol/L Normal 6-16 [facility] Comment on above: Performed By: #### 2 652956, 5404624, 51609907, 81121146, 3211227, 6855696 ####[facility] [address] [place] [address] Calcium [Mass/Vol] 9.9 mg/dL Normal 8.9-11.1 [facility] Comment on above: Performed By: #### 2 921547, 2620161, 65704097, 51044107, 6506857, 2293894 ####[facility] [address] [place] [address] Chloride [Moles/Vol] 95 mmol/L Low 101-111 [facility] Comment on above: Performed By: #### 2 245550, 5294984, 28105128, 94228399, 9176255, 1486488 ####[facility] [address] [place] [address] CO2 [Moles/Vol] 31 mmol/L Normal 21-31 [facility] Comment on above: Performed By: #### 2 985071, 6694816, 78179799, 97386166, 9794346, 9061294 ####[facility] [address] [facility] [place] [address] Glucose [Mass/Vol] 124 mg/dL Normal 55-199 [facility] Comment on above: Result Comment: If t his glucose result represents a fasting glucose, interpretation should refer to the following reference range: 55-99 mg/dL Performed By: #### 2 985339, 9975455, 76552921, 89562195, 3414583, 2933169 ####[facility] [facility] [place] [address] [place] [address] Potassium [Moles/Vol] 4.3 mmol/L Normal 3.5-5.3 [facility] Comment on above: Performed By: #### 2 410738, 7783958, 86757662, 97764000, 5310339, 5584635 ####[facility] [place] [address] [place] [address] Sodium [Moles/Vol] 136 mmol/L Normal 135-145 [facility] [place] Comment on above: Performed By: #### 2 608789, 0620323, 37520107, 46518752, 7792525, 9295923 ####[facility] [place] [address] [place] [address] CBC w/ Auto Diffon 3 Erythrocyte distribution width (RBC) [Ratio] 15.4 % High 10.9-14.2 [facility] [place] Comment on above: Performed By: #### 2 908811, 9786898, 64558369, 09292827, 1672871, 2145080 ####[facility] [place] [address] [place] [address] Hematocrit (Bld) [Volume fraction] 42.5 % Normal 37.7-49.0 [facility] Comment on above: Performed By: #### 2 834512, 2667196, 15083939, 63525161, 6425991, 9243052 ####[facility] [address] [place] [address] Hemoglobin (Bld) [Mass/Vol] 13.9 g/dL Normal 13.5-17.5 [facility] [place] Comment on above: Performed By: #### 2 011666, 2802194, 70315431, 32761022, 4732460, 7788375 ####[facility] [place] [address] [place] [address] MCH (RBC) [Entitic mass] 27.3 pg Normal 27.0-34.0 [facility] [place] Comment on above: Performed By: #### 2 487193, 0519024, 01797465, 67586780, 7758709, 6802051 ####[facility] [address] [place] [address] MCHC (RBC) [Mass/Vol] 32.7 g/dL Normal 31.4-36.0 [facility] Comment on above: Performed By: #### 2 097279, 7571527, 29783575, 85201247, 3292367, 5710398 ####[address] [address] MCV (RBC) [Entitic vol] 83.4 fL Normal 80.0-100.0 F [facility] Comment on above: Performed By: #### 2 293085, 7246205, 47421594, 84400457, 3006793, 0444201 ####[address] [address] Platelet mean volume (Bld) [Entitic vol] 8.6 fL Normal 6.4-10.8 [facility] [place] Comment on above: Performed By: #### 2 764558, 3957932, 18526076, 13007817, 8171460, 5386645 ####[address] [address] Platelets (Bld) [#/Vol] 252.0 E9/L Normal 150.0-500.0 [facility] Comment on above: Performed By: #### 2 540384, 5321001, 65219144, 23651769, 6126521, 7173565 ####[address] [address] RBC (Bld) [#/Vol] 5.1 E12/L Normal 4.3-5.9 [facility] [place] Comment on above: Performed By: #### 2 405173, 3476402, 98762944, 84188502, 4069551, 9825772 ####[facility] [place] [address] [place] [address] WBC corrected for nucl RBC Auto (Bld) [#/Vol] 11.6 E9/L High 4.0-11.0 [facility] Comment on above: Performed By: #### 2 368509, 0282698, 67090273, 29548038, 8619551, 5243532 ####[facility] [address] [place] [address] CHEMISTRYOrdered By: SYSTEM SYSTEM on 01-21-2023 Troponin [...] Treatmenton 12-24 Consent for Treatment [id number] .[id number]:127 Normal [facility] [place] ED Clinical Summaryon 2022 ED Clinical Summary Normal [facility] ED Note-Physicianon 01-22-20 ED Note-Physician Normal [facility] [place] Comment on above: Result Comment: Elec tronically Signed By: Gustavo Yusuf DO.br\Date and Time Signed: 01/21/23 19:26 EDT ED Patient Education Noteon 01-21-2023 ED Patient Education Note Normal [facility] ED Patient Summaryon 023 ED Patient Summary Normal [facility] [place] HEMATOLOGYOrdered By: SYSTEM SYSTEM on 01-21-2023 Basophils/100 [...] 5.1 E12/L Normal 4.3 - 5.9 E12/L [facility] HemeAutoSS WBC corrected for nucl RBC Auto (Bld) [#/Vol] 11.6 E9/L High 4.0 - 11.0 E9/L [facility] HemeAutoSS Hep Func Panelon 01-21-2023 Bilirubin.direct [Mass/Vol] 0.1 mg/dL Normal 0.1-0.4 [facility] [place] Comment on above: Performed By: #### 2 759655, 8940702, 59863608, 00646853, 0577827, 4880187 ####[facility] [place] [address] [place] [address] Bilirubin.indirect [Mass or moles/Vol] 0.8 mg/dL Normal 0.1-0.9 [facility] Comment on above: Performed By: #### 2 555931, 4076767, 74084658, 18791494, 2149990, 2632655 ####[facility] [address] [place] [address] Albumin [Mass/Vol] 3.9 g/dL Normal 3.3-5.0 [facility] Comment on above: Performed By: #### 2 382715, 1906960, 25274259, 30676080, 3183859, 3571807 ####[facility] [place] [address] [place] [address] Albumin/Globulin (S) [Mass conc ratio] 1.0 Low 1.1-2.2 [facility] Comment on above: Performed By: #### 2 733874, 0396762, 76797754, 86326995, 6112753, 0270904 ####[facility] [address] [place] [address] ALP [Catalytic activity/Vol] 50 Int._Unit/L Normal 21-98 [facility] [place] Comment on above: Performed By: #### 2 370365, 1183567, 54559122, 38828572, 5773925, 4575553 ####[facility] [place] [address] [place] [address] ALT No additional P-5'-P [Catalytic activity/Vol] 23 Int._Unit/L Normal 6-46 [facility] [place] Comment on above: Performed By: #### 2 651827, 9652367, 49269848, 33241754, 7605115, 5791279 ####[facility] [address] [place] [address] AST [Catalytic activity/Vol] 22 Int._Unit/L Normal 5-43 [facility] Comment on above: Performed By: #### 2 629683, 5421086, 07995688, 24697029, 1787224, 0111271 ####[facility] [place] [address] [place] [address] Bilirubin [Mass/Vol] 0.9 mg/dL Normal 0.0-1.1 [facility] Comment on above: Performed By: #### 2 009438, 4911272, 79765353, 32659180, 5841489, 0468447 ####[facility] [address] [place] [address] Globulin (S) [Mass/Vol] 3.8 g/dL Normal 1.4-4.0 F [facility] Comment on above: Performed By: #### 2 097682, 4332883, 99881195, 19306096, 2374587, 2977998 ####[facility] [address] [place] [address] Protein [Mass/Vol] 7.7 g/dL Normal 6.0-7.8 [facility] Comment on above: Performed By: #### 2 475864, 4566384, 71920705, 84160170, 5676521, 7648447 ####[address] [place] [address] Senior Care Recordson 01-21 [facility] Records [id number]# 1.00CD:127 Normal [facility] [place] Troponin 0 Hr.on 01-21-2023 Troponin I.cardiac [Mass/Vol] 25.50 pg/mL Normal 15.90-38.40 [facility] Comment on above: Result Comment: The 95% CI (Confidence Interval) PPV (Positive Predictive Value) for myocardial infarction in females is 38 pg/mL, in males 51 pg/mL. The results should be used in conjunction with clinical conditions of myocardial infarction.(Access High Sensitivity Troponin I Instructions For Use, [employer], December 2017) Performed By: #### 2 728223, 4920221, 30008136, 79063882, 6531432, 2964172 ####[address] [address] Troponin 3 Hr.on 01-21-2023 Troponin I.cardiac [Mass/Vol] 23.90 pg/mL Normal 15.90-38.40 [facility] Comment on above: Result Comment: The 95% CI (Confidence Interval) PPV (Positive Predictive Value) for myocardial infarction in females is 38 pg/mL, in males 51 pg/mL. The results should be used in conjunction with clinical conditions of myocardial infarction.([employer] High Sensitivity Troponin I Instructions For Use, [employer], December 2017) Performed By: #### 1 [id number] ####[address] [address] UA With Cult Reflexon 2022 Bilirubin Ql (U) Negative Normal Negative [facility] Comment on above: Performed By: #### 1 9544108 ####[address] [address] Clarity (U) CLEAR Normal Clear [facility] [place] Comment on above: Performed By: #### 1 5415229 ####[address] [address] Color (U) STRAW Abnormal Yellow [facility] [place] Comment on above: Performed By: #### 1 6492874 ####[address] [address] Epithelial cells.squamous LM.HPF (Urine sed) [#/Area] 0-2 Normal 0-2 [facility] Comment on above: Performed By: #### 1 0555601 ####[facility] [address] [address] Glucose Test strip (U) [Mass/Vol] Negative Normal Negative [facility] [place] Comment on above: Performed By: #### 1 9292109 ####[address] [address] Hemoglobin Ql (U) Negative Normal Negative [facility] [place] Comment on above: Performed By: #### 1 9315432 ####[address] [address] Ketones (U) [Mass/Vol] Negative Normal Negative [facility] Comment on above: Performed By: #### 1 0635160 ####[address] [address] [place].plasma/[place].R BC (Bld) [Mass ratio] 0-3 Normal 0-3 [facility] Comment on above: Performed By: #### 1 9200926 ####[address] [address] Nitrite Ql (U) Negative Normal Negative [facility] Comment on above: Performed By: #### 1 9093140 ####[address] [address] pH (U) 6.0 [pH] Invalid Interpretation Code 5.0-9.0 [facility] [place] Comment on above: Performed By: #### 1 7081956 ####[address] [address] Protein (U) [Mass/Vol] Negative Normal Negative [facility] Comment on above: Performed By: #### 1 4027213 ####[address] [address] Specific gravity (U) [Rel density] 1.010 Invalid Interpretation Code 1.005-1.030 [facility] [place] Comment on above: Performed By: #### 1 6428751 ####[address] [address] Type of Urine collection method Clean Catch Normal [facility] [place] Comment on above: Performed By: #### 1 5267542 ####[facility] [address] [place] [address] Urobilinogen Qn (U) 0.2 {Lei'U}/dL Normal 0.0-1.0 [facility] Comment on above: Performed By: #### 1 2859955 ####[facility] [address] [place] [address] WBC Auto Ql (U) Negative Normal Negative [facility] Comment on above: Performed By: #### 1 7179969 ####[facility] [place] [address] [place] [address] WBC LM.HPF (Urine sed) [#/Area] 0-5 Normal 0-5 [facility] [place] Comment on above: Performed By: #### 1 6385121 ####[facility] [place] [address] [place] [address] URINALYSISOrdered By: Karen Vergara on 01-21-2023 Bilirubin [...] PM) Normal Negative [facility] UA Auto SS [place].plasma/[place].R BC (Bld) [Mass ratio] 0-3 /HPF Normal 0-3/HPF [facility] UA Au to SS Nitrite Ql (U) Negative (01/21/23 4:41 PM) Normal Negative [facility] UA Auto SS pH (U) 6.0 *NA* (01/21/23 4:41 PM) Invalid Interpretation Code 5.0 - 9.0 [facility] UA Auto SS Protein (U) [Mass/Vol] Negative (01/21/23 4:41 PM) Normal Negative [facility] UA Auto SS Specific gravity (U) [Rel density] 1.010 *NA* (01/21/23 4:41 PM) Invalid Interpretation Code 1.005 - 1.030 [facility] UA Auto SS UA Spec Desc Clean Catch (01/21/23 4:41 PM) Normal [facility] UA Auto SS Urobilinogen Qn (U) 0.1424097 {Lei'U}/dL Normal 0.0 - 1.0 EU/dL [facility] UA Auto SS WBC Auto Ql (U) Negative (01/21/23 4:41 PM) Normal Negative [facility] UA Auto SS WBC LM.HPF (Urine sed) [#/Area] 0-5 /HPF Normal 0-5/HPF [facility] UA Auto SS XR Chest Single Viewon 01-21 XR Chest Single View Normal [facility] eGFRon 01-21-2023 GFR/1.73 sq M.predicted among non-blacks MDRD (S/P/Bld) [Vol rate/Area] 62 mL/min/1.73 m2 Normal >=59 [facility] [place] Comment on above: Order Comment: Order added by Discern Expert. Result Comment: Federal Mediation Commissioner earnest kidney disease could be indicated at eGFR's of less than 60 mL/min/1.73m2. Kidney failure is indicated at less than 15 mL/min/1.73m2. Performed By: #### 2 700539, 1504420, 89905399, 84503962, 9246873, 3846699 ####[facility] [address] [place] [address] Discharge Instructionson Discharge Instructions [id number] .[id number]:127 Normal [facility] Capillary Glucose POCon 12-23 Glucose [Mass/Vol] 117 mg/dL High 55-99 [facility] Comment on above: Result Comment: Yazmin bri Meter Performed By: #### 2 [id number] ####[facility] [place] [address] [place] [address] Family Medicine Office/Clini c Noteon 01-15-2023 Family Medicine Office/Clinic Note Normal [facility] [place] Comment on above: Result Comment: Elec tronically Signed By: SHAISTA POTTS, Dennise.candice\Date and Time Signed: 01/15/23 16:46 EDT Capillary Glucose POCon 12-23 Glucose [Mass/Vol] 121 mg/dL High 55-99 [facility] [place] Comment on above: Result Comment: Yazmin bri Meter Performed By: #### 2 [id number] ####[facility] [place] [address] [place] [address] Capillary Glucose POCon 12-23 Glucose [Mass/Vol] 127 mg/dL High 55-[address] [place] [address] Comment on above: Result Comment: Yazmin bri Meter Performed By: #### 2 [id number] ####[facility] [place] [address] [place] [address] Capillary Glucose POCon 12-22 Glucose [Mass/Vol] 104 mg/dL High 55-[address] [place] [address] Comment on above: Result Comment: Yazmin bri Meter Performed By: #### 2 [id number] ####[facility] [place] [address] [place] [address] Capillary Glucose POCon 12-22 Glucose [Mass/Vol] 121 mg/dL High 55-[address] [place] [address] Comment on above: Result Comment: Yazmin bri Meter Performed By: #### 2 03437645 ####[facility] [place] [address] [place] [address] Capillary Glucose POCon 12-22 Glucose [Mass/Vol] 110 mg/dL High 55-99 [facility] [place] Comment on above: Result Comment: Yazmin bri Meter Performed By: #### 2 [id number] ####[facility] [place] [address] [place] [address] Capillary Glucose POCon 12-22 Glucose [Mass/Vol] 119 mg/dL High 55-99 [facility] [place] Comment on above: Result Comment: Yazmin bri Meter Performed By: #### 2 81979923 ####[facility] [place] [address] [place] [address] Capillary Glucose POCon 12-22 Glucose [Mass/Vol] 141 mg/dL High 55-99 [facility] [place] Comment on above: Result Comment: Yazmin bri Meter Performed By: #### 2 66618808 ####[facility] [place] [address] [place] [address] Capillary Glucose POCon 12-22 Glucose [Mass/Vol] 104 mg/dL High 55-99 [facility] [place] Comment on above: Result Comment: Yazmin bri Meter Performed By: #### 2 [id number] ####[facility] [place] [address] [place] [address] BMPon 12-30-2022 Calcium [Mass/Vol] 9.1 mg/dL Normal 8.9-11.1 [facility] [place] Comment on above: Performed By: #### 7 [id number], 6738233, 86577157 ####[facility] [place] [address] [place] [address] Anion gap [Moles/Vol] 18 mmol/L High 6-16 [facility] Comment on above: Performed By: #### 7 [id number], 9478734, 73226709 ####[facility] [place] [address] [place] [address] Chloride [Moles/Vol] 91 mmol/L Low 101-111 [facility] Comment on above: Performed By: #### 7 20565974, 9536034, 49618527 ####[facility] [place] [address] [place] [address] CO2 [Moles/Vol] 30 mmol/L Normal 21-31 [facility] Comment on above: Performed By: #### 7 76028987, 1681002, 74182287 ####[facility] [place] [address] [place] [address] Creatinine [Mass/Vol] 1.3 mg/dL Normal 0.5-1.3 [facility] Comment on above: Performed By: #### 7 91031431, 3522219, 78392520 ####[facility] [address] [place] [address] Glucose [Mass/Vol] 171 mg/dL Normal 55-199 [facility] Comment on above: Result Comment: If t his glucose result represents a fasting glucose, interpretation should refer to the following reference range: 55-99 mg/dL Performed By: #### 7 [id number], 7000910, 47121523 ####[facility] [address] [place] [address] Potassium [Moles/Vol] 4.2 mmol/L Normal 3.5-5.3 [facility] Comment on above: Performed By: #### 7 69947224, 3728092, 48748502 ####[facility] [place] [address] [place] [address] Sodium [Moles/Vol] 135 mmol/L Normal 135-145 [facility] Comment on above: Performed By: #### 7 49666717, 7027587, 56810298 ####[facility] [address] [place] [address] Urea nitrogen [Mass/Vol] 36 mg/dL High 5-21 [facility] Comment on above: Performed By: #### 7 54714677, 2275878, 62633721 ####[facility] [address] [place] [address] Urea nitrogen/Creatinine [Mass ratio] 28 No Units High 10-20 [facility] [place] Comment on above: Performed By: #### 7 77101843, 5958503, 74211258 ####[facility] [address] [place] [address] [id number] 12-30-2022 HbA1c (Bld) [Mass fraction] 6.9 % High <=5.9 [facility] Comment on above: Performed By: #### 7 34200197, 1500119, 63286305 ####[facility] [place] [address] [place] [address] eGFRon 12-30-2022 GFR/1.73 sq M.predicted among non-blacks MDRD (S/P/Bld) [Vol rate/Area] 56 mL/min/1.73 m2 Low >=59 [facility] [place] Comment on above: Order Comment: Order added by Discern Expert. Result Comment: Federal Mediation Commissioner earnest kidney disease could be indicated at eGFR's of less than 60 mL/min/1.73m2. Kidney failure is indicated at less than 15 mL/min/1.73m2. Performed By: #### 7 [id number], 3951740, 69157209 ####[facility] [place] [address] [place] [address] Capillary Glucose POCon 08-0 Glucose [Mass/Vol] 141 mg/dL High 55-99 [facility] [place] Comment on above: Result Comment: Yazmin bri Meter Performed By: #### 2 [id number] ####[facility] [place] [address] [place] [address] Capillary Glucose POCon 08-0 Glucose [Mass/Vol] 101 mg/dL High 55-99 [facility] [place] Comment on above: Result Comment: Yazmin bri Meter Performed By: #### 2 [id number] ####[facility] [address] [place] [address] C Blood Charcoalon 3 Blood Culture Charcoal Normal [facility] Comment on above: Performed By: #### 1 [id number] ####[facility] [place] [address] [place] [address] Capillary Glucose POCon 08-0 Glucose [Mass/Vol] 135 mg/dL High 55-99 [facility] Comment on above: Result Comment: Yazmin bri Meter Performed By: #### 2 19061881 ####[facility] [place] [address] [place] [address] Capillary Glucose POCon 08-0 Glucose [Mass/Vol] 110 mg/dL High 55-99 [facility] Comment on above: Result Comment: Yazmin rbi Meter Performed By: #### 2 [id number] ####[facility] [address] [place] [address] Consultation Noteon 12-24-19 Consultation Note Normal [facility] Comment on above: Result Comment: Elec tronically Signed By: Marcus POTTS, [place]\.br\Date and Time Signed: 12/23/22 07:33 EDT Family Medicine Office/Clini c Noteon 12-23-2022 Family Medicine Office/Clinic Note Normal [facility] [place] Comment on above: Result Comment: Elec tronically Signed By: SHAISTA POTTS, Donta\.br\Date and Time Signed: 12/22/22 22:31 EDT C Blood Charcoalon Blood Culture Charcoal Normal [facility] Comment on above: Performed By: #### 1 [id number] ####[facility] [place] [address] [place] [address] U Legi Agon 12-22-2022 L. pneumophila 1 Ag IA Ql (U) Negative Invalid Interpretation Code Negative [facility] Comment on above: Result Comment: Pres umptive negative for L. pneumophila serogroup 1 antigen in urine,suggesting no recent or current infection. Legionnaires' diseasecannot be ruled out since other serogroups and species may also causedisease.Performed at: [address] [id number] MD Tyler Gurrola Performed By: #### 2 [id number] ####[facility] [address] [place] [address] C Urineon 12-21-2022 Bacteria identified Cx Nom (U) Normal [facility] Comment on above: Performed By: #### 1 7150105, [id number] ####[facility] [address] [place] [address] Capillary Glucose POCon 11-23 Glucose [Mass/Vol] 134 mg/dL High 55-99 [facility] Comment on above: Result Comment: Yazmin bri Meter Performed By: #### 2 [id number] ####[facility] [address] [place] [address] Auto DiffOrdered By: SYSTEM SYSTEM on 12-20-2022 Basophils/100 WBC (Bld) 0.5 % Normal 0.0-2.0 F [facility] HemeAutoSS Comment on above: Order Comment: Order Added by Discern Expert. Performed By: #### 2 243314, 0384016, 80801563, 6684373 ####[address] [address] Basophils/Leukocytes Auto (Bld) [Pure # fraction] 0.0 E9/L Normal 0.0-0.2 FT HemeAutoSS Comment on above: Order Comment: Order Added by Bethany Expert. Performed By: #### 2 515828, 5976716, 82315516, 1176587 ####[address] [address] Eosinophils/100 WBC (Bld) 7.9 % Normal 0.0-8.0 FT HemeAutoSS Comment on above: Order Comment: Order Added by Bethany Expert. Performed By: #### 2 841740, 1825014, 77990296, 8758501 ####[address] [address] Eosinophils/Leukocytes Auto (Bld) [Pure # fraction] 0.8 E9/L High 0.0-0.5 FT HemeAutoSS Comment on above: Order Comment: Order Added by Bethany Expert. Performed By: #### 2 191533, 8245744, 15903490, 4318055 ####[address] [address] Lymphocytes/100 WBC (Bld) 9.5 % Low 14.0-50.0 FT HemeAutoSS Comment on above: Order Comment: Order Added by Bethany Expert. Performed By: #### 2 376157, 0321988, 78833056, 9627169 ####[address] [address] Lymphocytes/Leukocytes Auto (Bld) [Pure # fraction] 1.0 E9/L Normal 1.0-4.0 FT HemeAutoSS Comment on above: Order Comment: Order Added by Discern Expert. Performed By: #### 2 726371, 5848431, 78316346, 1447584 ####[address] [address] Monocytes/100 WBC (Bld) 7.6 % Normal 4.0-14.0 F [facility] HemeAutoSS Comment on above: Order Comment: Order Added by Discern Expert. Performed By: #### 2 616176, 9929223, 75407906, 5322671 ####[address] [address] Monocytes/Leukocytes Auto (Bld) [Pure # fraction] 0.8 E9/L Normal 0.2-1.0 [facility] HemeAutoSS Comment on above: Order Comment: Order Added by Discern Expert. Performed By: #### 2 138431, 3163840, 92372895, 8077987 ####[address] [address] Neutrophils/100 WBC (Bld) 74.5 % Normal 36.0-75.0 [facility] HemeAutoSS Comment on above: Order Comment: Order Added by Bethany Expert. Performed By: #### 2 001119, 4904040, 42859694, 3920649 ####[place] [address] [address] Neutrophils/Leukocytes Auto (Bld) [Pure # fraction] 7.7 E9/L High 2.0-7.5 FT HemeAutoSS Comment on above: Order Comment: Order Added by Discern Expert. Performed By: #### 2 351020, 4685801, 55513552, 1055820 ####[place] [address] [address] BMPOrdered By: SYSTEM SYSTEM on 12-20-2022 Anion gap [Moles/Vol] 8 mmol/L Normal 6-16 FTM C Remisol Comment on above: Performed By: #### 2 468992, 3456094, 29058249, 2169456 ####[place] [address] [address] Calcium [Mass/Vol] 7.9 mg/dL Low 8.9-11.1 FT R emisol Comment on above: Performed By: #### 2 142981, 6964277, 58852773, 3317616 ####[facility] [address] [place] [address] Chloride [Moles/Vol] 105 mmol/L Normal 101-111 [facility] Remisol Comment on above: Performed By: #### 2 092142, 3567356, 38566559, 7884442 ####[facility] [address] [place] [address] CO2 [Moles/Vol] 25 mmol/L Normal 21-31 FT Ashwin luanne Comment on above: Performed By: #### 2 543835, 5847495, 45736533, 2372046 ####[address] [address] Creatinine [Mass/Vol] 1.0 mg/dL Normal 0.5-1.3 FT C Remisol Comment on above: Performed By: #### 2 927469, 9919983, 42413949, 5746244 ####[facility] [address] [place] [address] Glucose [Mass/Vol] 106 mg/dL Normal 55-199 FT R emisol Comment on above: Result Comment: If t his glucose result represents a fasting glucose, interpretation should refer to the following reference range: 55-99 mg/dL Performed By: #### 2 334845, 3400749, 70630177, 9494531 ####[facility] [address] [address] Potassium [Moles/Vol] 4.4 mmol/L Normal 3.5-5.3 F[facility] C Remisol Comment on above: Performed By: #### 2 972103, 7207805, 42301194, 0528683 ####[address] [address] Sodium [Moles/Vol] 134 mmol/L Low 135-145 FT R emisol Comment on above: Performed By: #### 2 823845, 2285881, 69964049, 2307716 ####[facility] [address] [place] [address] Urea nitrogen [Mass/Vol] 22 mg/dL High 5-21 [facility] Remisol Comment on above: Performed By: #### 2 240162, 6111385, 47887966, 1341277 ####[place] [address] [place] [address] BMPon 12-20-2022 Urea nitrogen/Creatinine [Mass ratio] 22 No Units High 10-20 [facility] Comment on above: Performed By: #### 2 138796, 1533533, 75948265, 7276363 ####[address] [address] CBC w/ Auto DiffOrdered By: Bony Hdez on 12-20-2022 Erythrocyte distribution width (RBC) [Ratio] 14.7 % High 10.9-14.2 [facility] HemeAutoSS Comment on above: Performed By: #### 2 288918, 6941576, 03005565, 2202702 ####[address] [address] Hematocrit (Bld) [Volume fraction] 34.6 % Low 37.7-49.0 [facility] HemeAutoSS Comment on above: Performed By: #### 2 695376, 4605547, 88794873, 2035434 ####[address] [address] Hemoglobin (Bld) [Mass/Vol] 11.7 g/dL Low 13.5-17.5 [facility] HemeAutoSS Comment on above: Performed By: #### 2 345923, 8721685, 19517003, 4131079 ####[address] [address] MCH (RBC) [Entitic mass] 28.6 pg Normal 27.0-34.0 [facility] HemeAutoSS Comment on above: Performed By: #### 2 981831, 9970789, 33171142, 0111855 ####[place] [address] [address] MCHC (RBC) [Mass/Vol] 33.7 g/dL Normal 31.4-36.0 F[facility] C HemeAutoSS Comment on above: Performed By: #### 2 098653, 0829595, 14526051, 1963858 ####[place] [address] MCV (RBC) [Entitic vol] 84.7 fL Normal 80.0-100.0 F [facility] HemeAutoSS Comment on above: Performed By: #### 2 215670, 1824393, 49097990, 5484769 ####[place] [address] Platelet mean volume (Bld) [Entitic vol] 9.5 fL Normal 6.4-10.8 FT HemeAutoSS Comment on above: Performed By: #### 2 396019, 0137875, 23321599, 7155871 ####[place] [address] Platelets (Bld) [#/Vol] 216.0 E9/L Normal 150.0-500.0 FT HemeAutoSS Comment on above: Performed By: #### 2 102645, 0737045, 79289028, 1052187 ####[place] [address] RBC (Bld) [#/Vol] 4.1 E12/L Low 4.3-5.9 FT HemeAutoSS Comment on above: Performed By: #### 2 001868, 3952677, 76396726, 5446096 ####[place] [address] WBC corrected for nucl RBC Auto (Bld) [#/Vol] 10.3 E9/L Normal 4.0-11.0 FT HemeAutoSS Comment on above: Performed By: #### 2 031370, 5419801, 11768006, 2915006 ####[place] [address] CHEMISTRYOrdered By: Lab ROP User on 12-20-2022 Glucose [Mass/Vol] 109 mg/dL High 55 - 99 mg/dL [facility] POC Subsection Comment on above: Result Comment: Gareth GARDINER POC Device SN [id number] Invalid Interpretation Code [facility] POC Subsection POC User ID [id number] Invalid Interpretation Code [facility] POC Subsection POC Username SAMANTHA LAMBERT Invalid Interpretation Code [facility] POC Subsection CHEMISTRYOrdered By: SYSTEM SYSTEM on 12-20-2022 Urea nitrogen/Creatinine [Mass ratio] 22 mg/mg High 10 - 20 [facility] Remisol Capillary Glucose POCon 11-23 Glucose [Mass/Vol] 198 mg/dL High 55-99 [facility] Comment on above: Result Comment: Yazmin bri Meter Performed By: #### 2 [id number] ####[facility] [address] [place] [address] Glucose [Mass/Vol] 109 mg/dL High 55-99 [facility] Comment on above: Result Comment: Gareth GARDINER Performed By: #### 2 69658442 ####[facility] [address] [place] [address] Discharge Documentationon Discharge Documentation [id number]#1 .00CD:127 Normal [facility] Inpatient Patient Summaryon 12-20-2022 Inpatient Patient Summary Normal [facility] Message from Medicareon 11-23 Message from Medicare [id number]# 1.00CD:127 Normal [facility] Monitor Recordon 12-20-2022 Monitor Record [id number]# 1.00CD:127 Normal [facility] Monitor Record [id number]# 1.00CD:127 Normal [facility] Monitor Record [id number]# 1.00CD:127 Normal [facility] Progress Note-Nurseon 2022 Progress Note-Nurse SBAR report called fanta Robert. Patient was transferred into wheelchair x2 stand pivot. Patient discharged to [facility] room 17. Transport by Samantha Lambert POCT. Normal [facility] Transfer Documentson 023 Transfer Documents [id number]#1 .00CD:127 Normal [facility] eGFROrdered By: SYSTEM SYSTE M on 12-20-2022 GFR/1.73 sq M.predicted among non-blacks MDRD (S/P/Bld) [Vol rate/Area] 77 mL/min/1.73 m2 Normal >=59 [facility] Chem S Comment on above: Order Comment: Order added by Discern Expert. Result Comment: Federal Mediation Commissioner earnest kidney disease could be indicated at eGFR's of less than 60 mL/min/1.73m2. Kidney failure is indicated at less than 15 mL/min/1.73m2. Performed By: #### 2 016565, 4657609, 65444298, 8123068 ####[facility] [address] [place] [address] Auto Diffon 12-19-2022 Basophils/100 WBC (Bld) 0.4 % Normal 0.0-2.0 F [facility] Comment on above: Order Comment: Order Added by Discern Expert. Performed By: #### 1 5247341, 1907946, 9084344, 8010252 ####[facility] [address] [place] [address] Basophils/Leukocytes Auto (Bld) [Pure # fraction] 0.0 E9/L Normal 0.0-0.2 [facility] Comment on above: Order Comment: Order Added by Discern Expert. Performed By: #### 1 5766434, 3525802, 7193229, 7335977 ####[facility] [address] [place] [address] Eosinophils/100 WBC (Bld) 4.2 % Normal 0.0-8.0 [facility] Comment on above: Order Comment: Order Added by Discern Expert. Performed By: #### 1 9067912, 7684225, 5548682, 1913417 ####[facility] [address] [place] [address] Eosinophils/Leukocytes Auto (Bld) [Pure # fraction] 0.6 E9/L High 0.0-0.5 [facility] Comment on above: Order Comment: Order Added by Discern Expert. Performed By: #### 1 0599732, 2586949, 8565726, 8701277 ####[place] [place] [address] Lymphocytes/100 WBC (Bld) 7.3 % Low 14.0-50.0 [facility] Comment on above: Order Comment: Order Added by Discern Expert. Performed By: #### 1 5590798, 7793431, 1141177, 4196609 ####[address] [address] Lymphocytes/Leukocytes Auto (Bld) [Pure # fraction] 1.0 E9/L Normal 1.0-4.0 [facility] Comment on above: Order Comment: Order Added by Discern Expert. Performed By: #### 1 2997405, 0407742, 7657757, 4722961 ####[address] [address] Monocytes/100 WBC (Bld) 6.5 % Normal 4.0-14.0 [facility] Comment on above: Order Comment: Order Added by Discern Expert. Performed By: #### 1 1588592, 6882653, 4436717, 0088482 ####[facility] [address] [place] [address] Monocytes/Leukocytes Auto (Bld) [Pure # fraction] 0.9 E9/L Normal 0.2-1.0 [facility] Comment on above: Order Comment: Order Added by Discern Expert. Performed By: #### 1 0424225, 4002244, 5914083, 3220516 ####[address] [place] [address] Neutrophils/100 WBC (Bld) 81.6 % High 36.0-75.0 [facility] Comment on above: Order Comment: Order Added by Discern Expert. Performed By: #### 1 2454924, 6834808, 8404700, 5763286 ####[facility] [address] [place] [address] Neutrophils/Leukocytes Auto (Bld) [Pure # fraction] 10.7 E9/L High 2.0-7.5 [facility] Comment on above: Order Comment: Order Added by Discern Expert. Performed By: #### 1 8621553, 9714398, 6201225, 8080493 ####[facility] [address] [place] [address] BMPon 12-19-2022 Anion gap [Moles/Vol] 11 mmol/L Normal 6-16 [facility] Comment on above: Performed By: #### 1 8117170, 2855461, 8973231, 1736080 ####[facility] [address] [place] [address] Calcium [Mass/Vol] 8.5 mg/dL Low 8.9-11.1 [facility] Comment on above: Performed By: #### 1 6191303, 5144119, 8675925, 4894645 ####[facility] [address] [place] [address] Chloride [Moles/Vol] 103 mmol/L Normal 101-111 [facility] Comment on above: Performed By: #### 1 6264318, 7550965, 1551922, 4014315 ####[facility] [address] [place] [address] CO2 [Moles/Vol] 28 mmol/L Normal 21-31 [facility] Comment on above: Performed By: #### 1 7328009, 1168458, 4258596, 8816854 ####[facility] [address] [place] [address] Creatinine [Mass/Vol] 1.2 mg/dL Normal 0.5-1.3 [facility] Comment on above: Performed By: #### 1 5598265, 2371620, 6733091, 1601783 ####[facility] [address] [place] [address] Glucose [Mass/Vol] 86 mg/dL Normal 55-199 [facility] Comment on above: Result Comment: If t his glucose result represents a fasting glucose, interpretation should refer to the following reference range: 55-99 mg/dL Performed By: #### 1 5376222, 5972165, 3609104, 1641401 ####[facility] [address] [place] [address] Potassium [Moles/Vol] 4.5 mmol/L Normal 3.5-5.3 [facility] Comment on above: Performed By: #### 1 1682646, 7204194, 9119928, 5230982 ####[facility] [address] [place] [address] Sodium [Moles/Vol] 137 mmol/L Normal 135-145 [facility] Comment on above: Performed By: #### 1 4117872, 3326468, 0948077, 6155288 ####[facility] [address] [place] [address] Urea nitrogen [Mass/Vol] 35 mg/dL High 5-21 [facility] Comment on above: Performed By: #### 1 3631222, 0354201, 6748714, 8013900 ####[facility] [address] [place] [address] Urea nitrogen/Creatinine [Mass ratio] 29 No Units High 10-20 [facility] Comment on above: Performed By: #### 1 6571452, 9998857, 1815230, 9671148 ####[facility] [address] [place] [address] CBC w/ Auto Diffon 3 Erythrocyte distribution width (RBC) [Ratio] 15.0 % High 10.9-14.2 [facility] Comment on above: Performed By: #### 1 8235668, 2795443, 9224687, 3274004 ####[facility] [address] [place] [address] Hematocrit (Bld) [Volume fraction] 38.4 % Normal 37.7-49.0 [facility] Comment on above: Performed By: #### 1 7972060, 0692151, 0456973, 4652271 ####[facility] [address] [place] [address] Hemoglobin (Bld) [Mass/Vol] 12.7 g/dL Low 13.5-17.5 [facility] Comment on above: Performed By: #### 1 7109587, 6060502, 3637207, 8446490 ####[address] [place] [address] MCH (RBC) [Entitic mass] 27.9 pg Normal 27.0-34.0 [facility] Comment on above: Performed By: #### 1 0019017, 2812962, 0877589, 9891065 ####[place] [address] MCHC (RBC) [Mass/Vol] 32.9 g/dL Normal 31.4-36.0 [facility] Comment on above: Performed By: #### 1 7666025, 6492870, 8514930, 6625008 ####[address] [place] [address] MCV (RBC) [Entitic vol] 84.8 fL Normal 80.0-100.0 F [facility] Comment on above: Performed By: #### 1 8985106, 1728267, 4708373, 7751654 ####[facility] [address] [place] [address] Platelet mean volume (Bld) [Entitic vol] 9.5 fL Normal 6.4-10.8 [facility] Comment on above: Performed By: #### 1 4675908, 9397011, 1836415, 5757810 ####[address] [place] [address] Platelets (Bld) [#/Vol] 230.0 E9/L Normal 150.0-500.0 [facility] Comment on above: Performed By: #### 1 7192956, 4418629, 3930332, 6556844 ####[facility] [address] [place] [address] RBC (Bld) [#/Vol] 4.5 E12/L Normal 4.3-5.9 [facility] Comment on above: Performed By: #### 1 3605937, 4206414, 5001338, 4850095 ####[facility] [address] [place] [address] WBC corrected for nucl RBC Auto (Bld) [#/Vol] 13.1 E9/L High 4.0-11.0 [facility] Comment on above: Performed By: #### 1 3280548, 9373527, 7942598, 8546362 ####[facility] [address] [place] [address] CHEMISTRYOrdered By: Lab ROP User on 12-19-2022 Glucose [Mass/Vol] 210 mg/dL High 55 - 99 mg/dL [facility] POC Subsection Comment on above: Result Comment: Gareth guerrreo RN/ POC Device SN [id number] Invalid Interpretation Code FT POC Subsection POC User ID [id number] Invalid Interpretation Code [facility] POC Subsection POC Username JODITRESASHER Armstrong Invalid Interpretation Code [facility] POC Subsection Glucose [Mass/Vol] 111 mg/dL High 55 - 99 mg/dL [facility] POC Subsection Comment on above: Result Comment: Gareth guerrero RN/ POC Device SN [id number] Invalid Interpretation Code FT POC Subsection POC User ID [id number] Invalid Interpretation Code [facility] POC Subsection POC Username KELLEN HERNANDEZ Invalid Interpretation Code [facility] POC Subsection CHEMISTRYOrdered By: SYSTEM SYSTEM on [...] 1.2 mg/dL Normal 0.5 - 1.3 mg/dL [facility] Remisol GFR/1.73 sq M.predicted among non-blacks MDRD (S/P/Bld) [Vol rate/Area] 62 mL/min/1.73 m2 Normal >=59mL/min/ 1.73 m2 [facility] Chem S Glucose [Mass/Vol] 86 mg/dL Normal 55 - 199 mg/dL [facility] Remisol Potassium [Moles/Vol] 4.5 mmol/L Normal 3.5 - 5.3 mmol/L [facility] Remisol Sodium [Moles/Vol] 137 mmol/L Normal 135 - 145 mmol/L [facility] Remisol Urea nitrogen [Mass/Vol] 35 mg/dL High 5 - 21 mg/dL [facility] Remisol Urea nitrogen/Creatinine [Mass ratio] 29 mg/mg High 10 - 20 [facility] Remisol Capillary Glucose POCon 11-22 Glucose [Mass/Vol] 210 mg/dL High 55-99 [facility] Comment on above: Result Comment: Gareth GARDINER Performed By: #### 2 [id number] ####[facility] [address] [place] [address] Glucose [Mass/Vol] 111 mg/dL High 55-99 [facility] Comment on above: Result Comment: Gareth GARDINER Performed By: #### 2 [id number] ####[facility] [address] [place] [address] Glucose [Mass/Vol] 201 mg/dL High 55-99 [facility] Comment on above: Result Comment: Gareth GARDINER Performed By: #### 2 [id number] ####[facility] [address] [place] [address] Glucose [Mass/Vol] 93 mg/dL Normal 55-99 [facility] Comment on above: Result Comment: Gareth GARDINER Performed By: #### 2 [id number] ####[facility] [address] [place] [address] HEMATOLOGYOrdered By: SYSTEM SYSTEM on 12-19-2022 Basophils/100 [...] 9.5 fL Normal 6.4 - 10.8 fL [facility] HemeAutoSS Platelets (Bld) [#/Vol] 230.0 E9/L Normal 150. 0 - 500.0 E9/L [facility] HemeAutoSS RBC (Bld) [#/Vol] 4.5 E12/L Normal 4.3 - 5.9 E12/L [facility] HemeAutoSS WBC corrected for nucl RBC Auto (Bld) [#/Vol] 13.1 E9/L High 4.0 - 11.0 E9/L [facility] HemeAutoSS Monitor Recordon 12-19-2022 Monitor Record [id number]# 1.00CD:127 Normal [facility] Monitor Record [id number]# 1.00CD:127 Normal [facility] Progress Note-Physicianon Progress Note-Physician Normal F [facility] Comment on above: Result Comment: Elec tronically Signed By: MICHAEL POTTS, Jamir\.br\Date and Time Signed: 12/19/22 09:47 EDT eGFRon 12-19-2022 GFR/1.73 sq M.predicted among non-blacks MDRD (S/P/Bld) [Vol rate/Area] 62 mL/min/1.73 m2 Normal >=59 [facility] Comment on above: Order Comment: Order added by Discern Expert. Result Comment: Federal Mediation Commissioner earnest kidney disease could be indicated at eGFR's of less than 60 mL/min/1.73m2. Kidney failure is indicated at less than 15 mL/min/1.73m2. Performed By: #### 1 5208316, 0722633, 0872015, 3976268 ####[facility] [address] [place] [address] Auto Diffon 12-18-2022 Basophils/100 WBC (Bld) 0.4 % Normal 0.0-2.0 [facility] Comment on above: Order Comment: Order Added by Discern Expert. Performed By: #### 2 381855, [id number] ####[facility] [address] [place] [address] Basophils/Leukocytes Auto (Bld) [Pure # fraction] 0.1 E9/L Normal 0.0-0.2 [facility] Comment on above: Order Comment: Order Added by Discern Expert. Performed By: #### 2 262180, 8958676 ####[address] [address] Eosinophils/100 WBC (Bld) 2.8 % Normal 0.0-8.0 [facility] Comment on above: Order Comment: Order Added by Discern Expert. Performed By: #### 2 304377, [id number] ####[address] [address] Eosinophils/Leukocytes Auto (Bld) [Pure # fraction] 0.4 E9/L Normal 0.0-0.5 [facility] Comment on above: Order Comment: Order Added by Discern Expert. Performed By: #### 2 396754, 1572007 ####[address] [address] Lymphocytes/100 WBC (Bld) 9.0 % Low 14.0-50.0 [facility] Comment on above: Order Comment: Order Added by Discern Expert. Performed By: #### 2 128641, 2280695 ####[address] [address] Lymphocytes/Leukocytes Auto (Bld) [Pure # fraction] 1.3 E9/L Normal 1.0-4.0 [facility] Comment on above: Order Comment: Order Added by Discern Expert. Performed By: #### 2 388597, 5988765 ####[address] [address] Monocytes/100 WBC (Bld) 8.3 % Normal 4.0-14.0 [facility] Comment on above: Order Comment: Order Added by Discern Expert. Performed By: #### 2 608464, 1987973 ####[facility] [address] [place] [address] Monocytes/Leukocytes Auto (Bld) [Pure # fraction] 1.3 E9/L High 0.2-1.0 [facility] Comment on above: Order Comment: Order Added by Discern Expert. Performed By: #### 2 979999, 3102288 ####[address] [address] Neutrophils/100 WBC (Bld) 79.5 % High 36.0-75.0 [facility] Comment on above: Order Comment: Order Added by Discern Expert. Performed By: #### 2 677798, 2874474 ####[address] [address] Neutrophils/Leukocytes Auto (Bld) [Pure # fraction] 11.9 E9/L High 2.0-7.5 [facility] Comment on above: Order Comment: Order Added by Bethany Expert. Performed By: #### 2 584183, 8538023 ####[address] [address] Basophils/100 WBC (Bld) 0.6 % Normal 0.0-2.0 [facility] Comment on above: Order Comment: Order Added by Bethany Expert. Performed By: #### 1 5285514, 5663246, 83269185, 7659747, 41207340, 00787295, 2358775 ####[address] [address] Basophils/Leukocytes Auto (Bld) [Pure # fraction] 0.1 E9/L Normal 0.0-0.2 [facility] Comment on above: Order Comment: Order Added by Discern Expert. Performed By: #### 1 4194603, 1222173, 20026846, 1621614, 86232083, 57819434, 8887100 ####[address] [address] Eosinophils/100 WBC (Bld) 2.0 % Normal 0.0-8.0 [facility] Comment on above: Order Comment: Order Added by Bethany Expert. Performed By: #### 1 9356863, 4918012, 49726430, 5844282, 99061443, 05469980, 4404429 ####[facility] [address] [place] [address] Eosinophils/Leukocytes Auto (Bld) [Pure # fraction] 0.3 E9/L Normal 0.0-0.5 [facility] Comment on above: Order Comment: Order Added by Discern Expert. Performed By: #### 1 8641389, 4288903, 04184172, 6483768, 98601283, 71211787, 0475522 ####[address] [place] [address] Lymphocytes/100 WBC (Bld) 7.6 % Low 14.0-50.0 [facility] Comment on above: Order Comment: Order Added by Discern Expert. Performed By: #### 1 3701553, 4873304, 34563674, 4639116, 73587657, 32443302, 7555443 ####[address] [address] Lymphocytes/Leukocytes Auto (Bld) [Pure # fraction] 1.3 E9/L Normal 1.0-4.0 [facility] Comment on above: Order Comment: Order Added by Discern Expert. Performed By: #### 1 6366215, 1133036, 10591226, 2091206, 25193694, 85353622, 8325540 ####[address] [address] Monocytes/100 WBC (Bld) 7.8 % Normal 4.0-14.0 [facility] Comment on above: Order Comment: Order Added by Discern Expert. Performed By: #### 1 1763685, 3445574, 98107177, 0771818, 40980424, 52509547, 1177194 ####[address] [place] [address] Monocytes/Leukocytes Auto (Bld) [Pure # fraction] 1.3 E9/L High 0.2-1.0 [facility] Comment on above: Order Comment: Order Added by Discern Expert. Performed By: #### 1 9526119, 8969445, 56326919, 5202501, 43498086, 08897409, 9182011 ####[facility] [address] [place] [address] Neutrophils/100 WBC (Bld) 82.0 % High 36.0-75.0 [facility] Comment on above: Order Comment: Order Added by Discern Expert. Performed By: #### 1 7794028, 3786341, 93188893, 8804562, 34562001, 62336441, 8292487 ####[facility] [address] [place] [address] Neutrophils/Leukocytes Auto (Bld) [Pure # fraction] 13.7 E9/L High 2.0-7.5 [facility] Comment on above: Order Comment: Order Added by Discern Expert. Performed By: #### 1 9687834, 1892736, 87142073, 8599267, 83780982, 95159610, 8556763 ####[facility] [address] [place] [address] BMPon 12-18-2022 Creatinine [Mass/Vol] 1.6 mg/dL High 0.5-1.3 [facility] Comment on above: Performed By: #### 2 895549, 9393850, 4713600917, 94621201, 36555533 ####[facility] [address] [place] [address] Urea nitrogen [Mass/Vol] 47 mg/dL High 5-21 [facility] Comment on above: Performed By: #### 2 757005, 9170509, 9856937611, 21408064, 26553486 ####[facility] [address] [place] [address] Urea nitrogen/Creatinine [Mass ratio] 29 No Units High 10-20 [facility] Comment on above: Performed By: #### 2 138522, 6125780, 1764728550, 79684994, 43164856 ####[facility] [address] [place] [address] Anion gap [Moles/Vol] 12 mmol/L Normal 6-16 [facility] Comment on above: Performed By: #### 2 659842, 4554738, 2675348901, 49384701, 65305641 ####[facility] [address] [place] [address] Calcium [Mass/Vol] 8.7 mg/dL Low 8.9-11.1 [facility] Comment on above: Performed By: #### 2 505300, 3942974, 9405972888, 90657138, 83271427 ####[facility] [address] [place] [address] Chloride [Moles/Vol] 97 mmol/L Low 101-111 [facility] Comment on above: Performed By: #### 2 101214, 0997879, 8730237668, 59005347, 03381255 ####[facility] [address] [place] [address] CO2 [Moles/Vol] 32 mmol/L High 21-31 [facility] Comment on above: Performed By: #### 2 714671, 8052119, 7063084242, 02507051, 02922020 ####[facility] [address] [place] [address] Glucose [Mass/Vol] 131 mg/dL Normal 55-199 [facility] Comment on above: Result Comment: If t his glucose result represents a fasting glucose, interpretation should refer to the following reference range: 55-99 mg/dL Performed By: #### 2 177774, 9897685, 5409766046, 47086609, 66272889 ####[facility] [address] [place] [address] Potassium [Moles/Vol] 3.7 mmol/L Normal 3.5-5.3 [facility] Comment on above: Performed By: #### 2 347914, 5112742, 7361421467, 77416363, 23079626 ####[facility] [address] [place] [address] Sodium [Moles/Vol] 137 mmol/L Normal 135-145 [facility] Comment on above: Performed By: #### 2 615385, 1517479, 9837471292, 53300086, 76582523 ####[facility] [address] [place] [address] Creatinine [Mass/Vol] 1.8 mg/dL High 0.5-1.3 [facility] Comment on above: Performed By: #### 1 1287493, 2605869, 64470543, 2555546, 31258639, 72136523, 0226774 ####[facility] [address] [place] [address] Urea nitrogen [Mass/Vol] 49 mg/dL High 5-21 [facility] Comment on above: Performed By: #### 1 3686206, 1463829, 22221618, 5905371, 40145736, 08380656, 6608028 ####[facility] [address] [place] [address] Urea nitrogen/Creatinine [Mass ratio] 27 No Units High 10-20 [facility] Comment on above: Performed By: #### 1 3445307, 5663300, 61785245, 3056869, 14888726, 21772385, 6650949 ####[facility] [address] [place] [address] Anion gap [Moles/Vol] 18 mmol/L High 6-16 [facility] Comment on above: Performed By: #### 1 8790376, 6962836, 79385003, 5760517, 90359213, 82341693, 4320825 ####[facility] [address] [place] [address] Calcium [Mass/Vol] 9.3 mg/dL Normal 8.9-11.1 [facility] Comment on above: Performed By: #### 1 2536485, 0254612, 42751409, 9927511, 11162567, 56138133, 9533356 ####[facility] [address] [place] [address] Chloride [Moles/Vol] 93 mmol/L Low 101-111 [facility] Comment on above: Performed By: #### 1 0004021, 8936044, 91759842, 3404028, 59743848, 03041057, 2236623 ####[facility] [address] [place] [address] CO2 [Moles/Vol] 29 mmol/L Normal 21-31 [facility] Comment on above: Performed By: #### 1 7037597, 3554238, 38443916, 7161267, 40685732, 34761802, 9087798 ####[facility] [address] [place] [address] Glucose [Mass/Vol] 137 mg/dL Normal 55-199 [facility] Comment on above: Result Comment: If t his glucose result represents a fasting glucose, interpretation should refer to the following reference range: 55-99 mg/dL Performed By: #### 1 6189513, 8037545, 54581066, 9732938, 47895869, 66332100, 2751739 ####[facility] [address] [place] [address] Potassium [Moles/Vol] 4.0 mmol/L Normal 3.5-5.3 [facility] Comment on above: Performed By: #### 1 1042287, 6817292, 14168661, 8242200, 40513529, 79477480, 3198577 ####[facility] [address] [place] [address] Sodium [Moles/Vol] 136 mmol/L Normal 135-145 [facility] Comment on above: Performed By: #### 1 2982429, 1352422, 40731563, 3143739, 55953218, 96817004, 5703884 ####[facility] [address] [place] [address] BNPon 12-18-2022 Int Ctr BNP Pass Normal [facility] Comment on above: Performed By: #### 1 1548341, 3150215, 90281805, 7265933, 10849680, 39307346, 7228556 ####[facility] [address] [place] [address] Natriuretic peptide B (Bld) [Mass/Vol] 219 pg/mL High 5-80 [facility] Comment on above: Performed By: #### 1 0511379, 2361990, 80696299, 6027134, 59365785, 24275275, 5680050 ####[facility] [address] [place] [address] CBC w/ Auto Diffon Erythrocyte distribution width (RBC) [Ratio] 14.8 % High 10.9-14.2 [facility] Comment on above: Performed By: #### 2 843568, 5302814 ####[address] [address] Hematocrit (Bld) [Volume fraction] 37.8 % Normal 37.7-49.0 [facility] Comment on above: Performed By: #### 2 377009, 4092485 ####[address] [address] Hemoglobin (Bld) [Mass/Vol] 12.7 g/dL Low 13.5-17.5 [facility] Comment on above: Performed By: #### 2 765896, 8374032 ####[address] [address] MCH (RBC) [Entitic mass] 28.3 pg Normal 27.0-34.0 [facility] Comment on above: Performed By: #### 2 898946, 3344099 ####[address] [address] MCHC (RBC) [Mass/Vol] 33.6 g/dL Normal 31.4-36.0 [facility] Comment on above: Performed By: #### 2 954445, 7880530 ####[address] [address] MCV (RBC) [Entitic vol] 84.2 fL Normal 80.0-100.0 [facility] Comment on above: Performed By: #### 2 737846, 5332131 ####[address] [address] Platelet mean volume (Bld) [Entitic vol] 9.2 fL Normal 6.4-10.8 [facility] Comment on above: Performed By: #### 2 890901, 3332875 ####[address] [address] Platelets (Bld) [#/Vol] 219.0 E9/L Normal 150.0-500.0 [facility] Comment on above: Performed By: #### 2 701508, 1145866 ####[address] [address] RBC (Bld) [#/Vol] 4.5 E12/L Normal 4.3-5.9 [facility] Comment on above: Performed By: #### 2 106867, 9850987 ####[address] [address] WBC corrected for nucl RBC Auto (Bld) [#/Vol] 15.0 E9/L High 4.0-11.0 [facility] Comment on above: Performed By: #### 2 877171, 2374952 ####[address] [address] Erythrocyte distribution width (RBC) [Ratio] 14.9 % High 10.9-14.2 [facility] Comment on above: Performed By: #### 1 1853853, 4412826, 56945738, 7849254, 09843958, 70250579, 3684099 ####[address] [address] Hematocrit (Bld) [Volume fraction] 42.8 % Normal 37.7-49.0 [facility] Comment on above: Performed By: #### 1 0540596, 3697036, 86097568, 7601798, 17683210, 61147457, 7777730 ####[facility] [address] [place] [address] Hemoglobin (Bld) [Mass/Vol] 14.3 g/dL Normal 13.5-17.5 [facility] Comment on above: Performed By: #### 1 9606722, 3201466, 29822375, 4777054, 29797346, 26591789, 7195656 ####[facility] [address] [place] [address] MCH (RBC) [Entitic mass] 28.1 pg Normal 27.0-34.0 [facility] Comment on above: Performed By: #### 1 5570378, 7485667, 71170451, 1331783, 16492130, 33151216, 5877978 ####[address] [place] [address] MCHC (RBC) [Mass/Vol] 33.3 g/dL Normal 31.4-36.0 [facility] Comment on above: Performed By: #### 1 5432268, 3834025, 06757535, 4847676, 32777781, 26747885, 6610070 ####[facility] [address] [place] [address] MCV (RBC) [Entitic vol] 84.3 fL Normal 80.0-100.0 [facility] Comment on above: Performed By: #### 1 2473142, 2770824, 58829158, 3499327, 03856610, 75683881, 8793900 ####[facility] [address] [place] [address] Platelet mean volume (Bld) [Entitic vol] 9.8 fL Normal 6.4-10.8 [facility] Comment on above: Performed By: #### 1 0990307, 5668053, 97395866, 9590430, 90044659, 64491470, 1986558 ####[address] [place] [address] Platelets (Bld) [#/Vol] 234.0 E9/L Normal 150.0-500.0 [facility] Comment on above: Performed By: #### 1 6520185, 1739256, 21591508, 4978229, 87979624, 57915659, 4957566 ####[facility] [address] [place] [address] RBC (Bld) [#/Vol] 5.1 E12/L Normal 4.3-5.9 [facility] Comment on above: Performed By: #### 1 6865784, 8507698, 45229486, 2654556, 49155669, 22805165, 7747000 ####[facility] [address] [place] [address] WBC corrected for nucl RBC Auto (Bld) [#/Vol] 16.7 E9/L High 4.0-11.0 [facility] Comment on above: Result Comment: Slid e reviewed by JENNIFER. Performed By: #### 1 0915994, 5239413, 38437449, 4749388, 54921449, 33305146, 7651201 ####[facility] [address] [place] [address] CHEMISTRYOrdered By: SYSTEM SYSTEM on 12-18-2022 Troponin [...] 44 mL/min/1.73 m2 Low >=59mL/min/ 1.73 m2 [facility] Chem S Glucose [Mass/Vol] 131 mg/dL Normal 55 - 199 mg/dL FT Remisol Potassium [Moles/Vol] 3.7 mmol/L Normal 3.5 - 5.3 mmol/L [facility] Remisol Procalcitonin 0.09 ng/mL Normal 0.00 - 0.50 ng/mL [facility] Remisol Sodium [Moles/Vol] 137 mmol/L Normal 135 - 145 mmol/L [facility] Remisol Troponin I.cardiac [Mass/Vol] 22.50 pg/mL Normal 15.90 - 38.40 pg/mL [facility] Remisol Urea nitrogen [Mass/Vol] 47 mg/dL High 5 - 21 mg/dL [facility] Remisol Urea nitrogen/Creatinine [Mass ratio] 29 mg/mg High 10 - 20 [facility] Remisol CHEMISTRYOrdered By: Yanet Apodaca on 12-18-2022 Troponin I.cardiac [Mass/Vol] 18.80 pg/mL Normal 15.90 - 38.40 pg/mL [facility] Natriure[facility] peptide B (Bld) [Mass/Vol] 219 pg/mL High 5 - 80 pg/mL [facility] HemeManSS CKon 12-18-2022 CK [Catalytic activity/Vol] 55 Int._Unit/L Normal 14-261 [facility] Comment on above: Performed By: #### 2 355518, 1127876, 1368197451, 87825466, 37232417 ####[facility] [address] [place] [address] COAGULATIONOrdered By: Rachael Apodaca on 12-18-2022 aPTT Coag (PPP) [Time] 30.6 s Normal 25.1 - 36.5 second(s) [facility] Auto Coag INR Coag (PPP) [Relative time] 1.1 {INR} Invalid Interpretation Code FT Auto Coag PT Coag (PPP) [Time] 12.5 s Normal 9.4 - 1 2.5 second(s) FT Auto Coag CT Head or Brain w/o Contras ton 12-18-2022 CT Head or Brain w/o Contrast Normal [facility] CT Spine Cervical w/o Contra ston 12-18-2022 CT Spine Cervical w/o Contrast Normal [facility] Capillary Glucose POCon 11-22 Glucose [Mass/Vol] 212 mg/dL High 55-99 [facility] Comment on above: Result Comment: Gareth GARDINER Performed By: #### 2 [id number] ####[facility] [address] [place] [address] Glucose [Mass/Vol] 97 mg/dL Normal 55-99 [facility] Comment on above: Result Comment: Yazmin bri Meter Performed By: #### 2 68095977 ####[facility] [address] [place] [address] Glucose [Mass/Vol] 119 mg/dL High 55-99 [facility] Comment on above: Result Comment: Gareth GARDINER Performed By: #### 2 84510249 ####[facility] [address] [place] [address] Glucose [Mass/Vol] 131 mg/dL High 55-99 [facility] Comment on above: Result Comment: Gareth GARDINER Performed By: #### 2 84367436 ####[facility] [address] [place] [address] Consent for Treatmenton 11-22 Consent for Treatment [id number]# 1.00CD:127 Normal [facility] ED Clinical Summaryon 2022 ED Clinical Summary Normal [facility] ED Note-Physicianon 12-19-19 23 ED Note-Physician Normal [facility] Comment on above: Result Comment: Elec tronically Signed By: Guilherme POTTS, Malcom\.br\Date and Time Signed: 12/18/22 04:33 EDT ED Patient Education Noteon 12-18-2022 ED Patient Education Note Normal [facility] ED Patient Summaryon 023 ED Patient Summary Normal [facility] ED Traumaon 12-18-2022 ED Trauma [id number]# 1.00CD:127 Normal [facility] HEMATOLOGYOrdered By: SYSTEM SYSTEM on 12-18-2022 Basophils/100 [...] 33.6 g/dL Normal 31.4 - 36.0 gm/dL [facility] HemeAutoSS MCV (RBC) [Entitic vol] 84.2 fL Normal 80.0 - 100.0 fL [facility] HemeAutoSS Platelet mean volume (Bld) [Entitic vol] 9.2 fL Normal 6.4 - 10.8 fL [facility] HemeAutoSS Platelets (Bld) [#/Vol] 219.0 E9/L Normal 150. 0 - 500.0 E9/L [facility] HemeAutoSS RBC (Bld) [#/Vol] 4.5 E12/L Normal 4.3 - 5.9 E12/L [facility] HemeAutoSS WBC corrected for nucl RBC Auto (Bld) [#/Vol] 15.0 E9/L High 4.0 - 11.0 E9/L [facility] HemeAutoSS Insurance Correspondence Off iceon 12-18-2022 Insurance Correspondence Office [id number] .00CD:127 Normal [facility] Interdisciplinary Note - Santosh e Manageron 12-18-2022 Interdisciplinary Note - Education Coordinator [facility] Comment on above: Result Comment: Elec tronically Signed By: Lucero Watson\.br\Date and Time Signed: 12/18/22 14:57 EDT Interdisciplinary Note - Dejuan singon 12-18-2022 Interdisciplinary Note - Nursing Patient he is confused and he does not able to answer my questions. informed staff in [facility] to send current medication list in fax.3N Normal [facility] Interdisciplinary Note - PTo n 12-18-2022 Interdisciplinary Note - PT [facility] [facility] [place] Laboratory - Microbiology an d Antimicrobial susceptibilityOrdered By: Karen Vergara on 12-18-2022 Bacteria identified Cx Nom (U) 10,000 cfu/ml Staphylococcus species Continuing incubation [facility] Monitor Recordon 12-18-2022 Monitor Record [id number]# 1.00CD:127 Normal [facility] [place] No Panel InformationOrdered By: Karen Vergara on 12-18-2022 Blood Culture Charcoal Streptococcus spe cies Staphylococcus species coagulase negative In 1 of 2 blood culture bottles drawn. Isolated from aerobic bottle Preliminary gram stain results of gram positive cocci in clusters Result called to Dr. Mckinney by and results read back for confirmation on 12/19/2022 09:39:39 [facility] No Panel InformationOrdered By: [facility] on 12-18-2022 Blood Culture Charcoal No growth at 2 da ys. Final to follow at 7 days. [facility] PT & PTTon 12-18-2022 aPTT Coag (PPP) [Time] 30.6 second(s) Normal 25.1-36.5 [facility] [place] Comment on above: Result Comment: Para meter [...] the same coagulation reagent and instrumentation as [facility]. Currently there are no coagulation studies available worldwide for children to 14 days, and no normal ranges. Heparin therapeutic range (represented by Anti-Factor Xa activity of 0.2 - 0.4 U/mL) corresponds to PTT of 56.6 - 109.0 sec. Performed By: #### 1 [id number], 7672506, 76613914, 9116453, 76665125, 02734277, 7484039 ####[facility] [place] [address] [place] [address] INR Coag (PPP) [Relative time] 1.1 {INR} Invalid Interpretation Code [facility] [place] Comment on above: Result Comment: INR results are specifically intended to assess patients stabilized on long-term Anticoagulation therapy suggested INR?s ?Less Intensive Anticoagulation? 2.0 ? 3.0Conventional Range 3.0 ? 4.5 Performed By: #### 1 5712367, 4473990, 69118579, 1892490, 15003197, 69894416, 2913728 ####[facility] [place] [address] [place] [address] PT Coag (PPP) [Time] 12.5 second(s) Normal 9.4-12.5 [facility] [place] Comment on above: Result Comment: 15 d [...] the same coagulation reagent and instrumentation as [facility]. Currently there are no coagulation studies available worldwide for children to 14 days, and no normal ranges. Performed By: #### 1 6613255, 5960721, 93577210, 4175819, 52557764, 86746838, 7174178 ####[facility] [place] [address] [place] [address] Procalcitoninon 12-18-2022 Procalcitonin .09 ng/mL Normal .00-.50 [facility] Comment on above: Result Comment: <0.5 [...] to 24 hours. Performed By: #### 2 950640, 1010157, [id number], 66974517, 86068082 ####[facility] [address] [place] [address] RAD - Preliminary Cat Scan R eporton 12-18-2022 RAD - Preliminary Cat Scan Report [id number]# 1.00CD:127 Normal [facility] [place] Troponin 0 Hr.on 12-18-2022 Troponin I.cardiac [Mass/Vol] 23.50 pg/mL Normal 15.90-38.40 [facility] [place] Comment on above: Result Comment: The 95% CI (Confidence Interval) PPV (Positive Predictive Value) for myocardial infarction in females is 38 pg/mL, in males 51 pg/mL. The results should be used in conjunction with clinical conditions of myocardial infarction.([employer] High Sensitivity Troponin I Instructions For Use, [employer], December 2017) Performed By: #### 1 0752999, 5395445, 67458138, 6631726, 52322353, 62856943, 3906408 ####[facility] [place] [address] [place] [id number] Troponin 3 Hr.on 12-18-2022 Troponin I.cardiac [Mass/Vol] 18.80 pg/mL Normal 15.90-38.40 [facility] [place] Comment on above: Result Comment: The 95% CI (Confidence Interval) PPV (Positive Predictive Value) for myocardial infarction in females is 38 pg/mL, in males 51 pg/mL. The results should be used in conjunction with clinical conditions of myocardial infarction.([employer] High Sensitivity Troponin I Instructions For Use, [employer], December 2017) Performed By: #### 1 [id number] ####[facility] [place] [address] [place] [address] Troponin 6 Hr.on 12-18-2022 Troponin I.cardiac [Mass/Vol] 22.50 pg/mL Normal 15.90-38.40 [facility] [place] Comment on above: Result Comment: The 95% CI (Confidence Interval) PPV (Positive Predictive Value) for myocardial infarction in females is 38 pg/mL, in males 51 pg/mL. The results should be used in conjunction with clinical conditions of myocardial infarction.([employer] High Sensitivity Troponin I Instructions For Use, [employer], December 2017) Performed By: #### 2 882649, 0163437, [id number], 32683538, 62438290 ####[facility] [place] [address] [place] [address] Troponin 9 Hr.on 12-18-2022 Troponin I.cardiac [Mass/Vol] 18.90 pg/mL Normal 15.90-38.40 [facility] [place] Comment on above: Result Comment: The 95% CI (Confidence Interval) PPV (Positive Predictive Value) for myocardial infarction in females is 38 pg/mL, in males 51 pg/mL. The results should be used in conjunction with clinical conditions of myocardial infarction.([employer] High Sensitivity Troponin I Instructions For Use, Claudia Lowfoot, December 2017) Performed By: #### 1 [id number] ####[facility] [place] [address] [place] [address] UA With Cult Reflexon 2022 Bacteria LM Ql (Urine sed) TRACE Normal Trace [facility] [place] Comment on above: Performed By: #### 1 8752942, 1945060 ####[address] [address] Bilirubin Ql (U) Negative Normal Negative [facility] Comment on above: Performed By: #### 1 1770645, 5978511 ####[address] [address] Clarity (U) CLEAR Normal Clear [facility] [place] Comment on above: Performed By: #### 1 4408723, 5168432 ####[address] [address] Color (U) YELLOW Normal Yellow [facility] [place] Comment on above: Performed By: #### 1 8525644, 3533743 ####[facility] [place] [address] [place] [address] Epithelial cells.squamous LM.HPF (Urine sed) [#/Area] 0-2 Normal 0-2 [facility] Comment on above: Performed By: #### 1 1581770, 7233633 ####[address] [address] Glucose Test strip (U) [Mass/Vol] Negative Normal Negative [facility] [place] Comment on above: Performed By: #### 1 8819638, 7959271 ####[facility] [place] [address] [place] [address] Hemoglobin Ql (U) TRACE Abnormal Negative [facility] [place] Comment on above: Performed By: #### 1 3924763, 0101103 ####[facility] [address] [place] [address] Ketones (U) [Mass/Vol] Negative Normal Negative [facility] Comment on above: Performed By: #### 1 1106844, 7504525 ####[facility] [place] [address] [place] [address] Oild[place].plasma/Oildale.R BC (Bld) [Mass ratio] 0-3 Normal 0-3 [facility] Comment on above: Performed By: #### 1 6735139, 7325033 ####[facility] [place] [address] [place] [address] Nitrite Ql (U) Negative Normal Negative [facility] Comment on above: Performed By: #### 1 8076712, 4479884 ####[facility] [place] [address] [place] [address] pH (U) 6.5 [pH] Invalid Interpretation Code 5.0-9.0 [facility] [place] Comment on above: Performed By: #### 1 3338753, 3699344 ####[facility] [place] [address] [place] [address] Protein (U) [Mass/Vol] Negative Normal Negative [facility] Comment on above: Performed By: #### 1 2878358, 2600245 ####[facility] [place] [address] [place] [address] Specific gravity (U) [Rel density] 1.020 Invalid Interpretation Code 1.005-1.030 [facility] [place] Comment on above: Performed By: #### 1 5168117, 3699608 ####[facility] [address] [place] [address] Type of Urine collection method Clean Catch Normal [facility] Comment on above: Performed By: #### 1 5007360, 8120351 ####[facility] [place] [address] [place] [address] Urobilinogen Qn (U) 0.2 {Lei'U}/dL Normal 0.0-1.0 [facility] [place] Comment on above: Performed By: #### 1 2870351, 4400698 ####[facility] [place] [address] [place] [address] WBC Auto Ql (U) 3+ Abnormal Negative [facility] Comment on above: Performed By: #### 1 0345313, 7935536 ####[facility] [address] [place] [address] WBC LM.HPF (Urine sed) [#/Area] /[HPF] Abnormal 0-5 [facility] [place] Comment on above: Performed By: #### 1 4755220, 4031968 ####[facility] [place] [address] [place] [address] URINALYSISOrdered By: Houston Castillo on 12-18-2022 Bacteria [...] PM) Normal Negative [facility] UA Auto SS Oildale.plasma/Oildale.R BC (Bld) [Mass ratio] 0-3 /HPF Normal 0-3/HPF [facility] UA Au to SS Nitrite Ql (U) Negative (12/18/22 4:45 PM) Normal Negative [facility] UA Auto SS pH (U) 6.5 *NA* (12/18/22 4:45 PM) Invalid Interpretation Code 5.0 - 9.0 [facility] UA Auto SS Protein (U) [Mass/Vol] Negative (12/18/22 4:45 PM) Normal Negative [facility] UA Auto SS Specific gravity (U) [Rel density] 1.020 *NA* (12/18/22 4:45 PM) Invalid Interpretation Code 1.005 - 1.030 [facility] UA Auto SS UA Spec Desc Clean Catch (12/18/22 4:45 PM) Normal [facility] UA Auto SS Urobilinogen Qn (U) 0.7952548 {Lei'U}/dL Normal 0.0 - 1.0 EU/dL [facility] UA Auto SS WBC Auto Ql (U) 3+ *ABN* (12/18/22 4:45 PM) Invalid Interpretation Code Negative [facility] UA Auto SS WBC LM.HPF (Urine sed) [#/Area] /[HPF] Invalid Interpretation Code 0-5/HPF [facility] UA Auto SS XR Chest Single Viewon 12-18 XR Chest Single View Normal [facility] XR Pelvis 1 or 2 Viewson XR Pelvis 1 or 2 Views Normal [place] [facility] eGFRon 12-18-2022 GFR/1.73 sq M.predicted among non-blacks MDRD (S/P/Bld) [Vol rate/Area] 44 mL/min/1.73 m2 Low >=59 [facility] [place] Comment on above: Order Comment: Order added by Discern Expert. Result Comment: Federal Mediation Commissioner earnest kidney disease could be indicated at eGFR's of less than 60 mL/min/1.73m2. Kidney failure is indicated at less than 15 mL/min/1.73m2. Performed By: #### 2 248311, 2225491, 5105212186, 73910971, 80925294 ####[facility] [place] [address] [place] [address] GFR/1.73 sq M.predicted among non-blacks MDRD (S/P/Bld) [Vol rate/Area] 38 mL/min/1.73 m2 Low >=59 [facility] [place] Comment on above: Order Comment: Order added by Discern Expert. Result Comment: Federal Mediation Commissioner earnest kidney disease could be indicated at eGFR's of less than 60 mL/min/1.73m2. Kidney failure is indicated at less than 15 mL/min/1.73m2. Performed By: #### 1 4439005, 3679630, 81338459, 0438274, 34313708, 11213936, 0445502 ####[facility] [place] [address] [place] [address] Capillary Glucose POCon 11-22 Glucose [Mass/Vol] 165 mg/dL High [address] [place] [address] Comment on above: Result Comment: Yazmin bri Meter Performed By: #### 2 [id number] ####[facility] [place] [address] [place] [address] Glucose [Mass/Vol] 184 mg/dL [address] Comment on above: Performed By: #### 2 73726061 ####[facility] [place] [address] [place] [address] Capillary Glucose POCon 11-22 Glucose [Mass/Vol] 184 mg/dL [address] Comment on above: Result Comment: Yazmin bri Meter Performed By: #### 2 [id number] ####[facility] [place] [address] [place] [address] Glucose [Mass/Vol] 141 mg/dL [address] Comment on above: Result Comment: Yazmin bri Meter Performed By: #### 2 01036103 ####[facility] [place] [address] [place] [address] Capillary Glucose POCon 11-22 Glucose [Mass/Vol] 183 mg/dL [address] Comment on above: Result Comment: Yazmin bri Meter Performed By: #### 2 [id number] ####[facility] [place] [address] [place] [address] Glucose [Mass/Vol] 147 mg/dL [address] Comment on above: Result Comment: Yazmin bri Meter Performed By: #### 2 09562601 ####[facility] [place] [address] [place] [address] Capillary Glucose POCon 11-22 Glucose [Mass/Vol] 188 mg/dL High [facility] [place] Comment on above: Result Comment: Yazmin bri Meter Performed By: #### 2 05020993 ####[facility] [place] [address] [place] [address] Glucose [Mass/Vol] 162 mg/dL High [facility] [place] Comment on above: Result Comment: Yazmin bri Meter Performed By: #### 2 78435755 ####[facility] [place] [address] [place] [address] Auto Diffon 12-13-2022 Basophils/100 WBC (Bld) 0.0 % Normal 0.0-2.0 [facility] Comment on above: Order Comment: Order Added by Discern Expert. Performed By: #### 1 9120942, 3163044, 757762081, 6054001, 1961283 ####[facility] [place] [address] [place] [address] Basophils/Leukocytes Auto (Bld) [Pure # fraction] 0.0 E9/L Normal 0.0-0.2 [facility] [place] Comment on above: Order Comment: Order Added by Discern Expert. Performed By: #### 1 0119952, 6364983, 901868702, 3175459, 5097872 ####[facility] [place] [address] [place] [address] Eosinophils/100 WBC (Bld) 7.6 % Normal 0.0-8.0 [facility] [place] Comment on above: Order Comment: Order Added by Discern Expert. Performed By: #### 1 6248029, 2640929, 935949783, 5192558, 3761414 ####[facility] [place] [address] [place] [address] Eosinophils/Leukocytes Auto (Bld) [Pure # fraction] 1.0 E9/L High 0.0-0.5 [facility] [place] Comment on above: Order Comment: Order Added by Discern Expert. Performed By: #### 1 9914324, 4089502, 990882699, 9997294, 4916675 ####[place] [address] [place] [address] Lymphocytes/100 WBC (Bld) 10.3 % Low 14.0-50.0 [facility] [place] Comment on above: Order Comment: Order Added by Discern Expert. Performed By: #### 1 4132152, 1976833, 266774587, 2092514, 9564686 ####[place] [address] [place] [address] Lymphocytes/Leukocytes Auto (Bld) [Pure # fraction] 1.3 E9/L Normal 1.0-4.0 [facility] [place] Comment on above: Order Comment: Order Added by Bethany Expert. Performed By: #### 1 4640747, 7612426, 492185597, 7234554, 7489072 ####[address] [address] Monocytes/100 WBC (Bld) 9.6 % Normal 4.0-14.0 [facility] Comment on above: Order Comment: Order Added by Bethany Expert. Performed By: #### 1 8957186, 0973906, 636603715, 2176932, 7092350 ####[address] [address] Monocytes/Leukocytes Auto (Bld) [Pure # fraction] 1.2 E9/L High 0.2-1.0 [facility] [place] Comment on above: Order Comment: Order Added by Bethany Expert. Performed By: #### 1 4033277, 8698771, 207587823, 1308172, 5540502 ####[address] [address] Neutrophils/100 WBC (Bld) 72.5 % Normal 36.0-75.0 [facility] [place] Comment on above: Order Comment: Order Added by Bethany Expert. Performed By: #### 1 3330435, 9310352, 865968917, 0642001, 0161560 ####[facility] [place] [address] [place] [address] Neutrophils/Leukocytes Auto (Bld) [Pure # fraction] 9.0 E9/L High 2.0-7.5 [facility] [place] Comment on above: Order Comment: Order Added by Discern Expert. Performed By: #### 1 2085611, 5583986, 106753447, 3756558, 6189290 ####[address] [place] [address] CBC w/ Auto Diffon 3 Erythrocyte distribution width (RBC) [Ratio] 15.0 % High 10.9-14.2 [facility] [place] Comment on above: Performed By: #### 1 6880643, 1494924, 203380283, 8931361, 8446276 ####[place] [place] [address] Hematocrit (Bld) [Volume fraction] 45.2 % Normal 37.7-49.0 [facility] [place] Comment on above: Performed By: #### 1 7591513, 2641677, 822752724, 4750673, 1595712 ####[place] [place] [address] Hemoglobin (Bld) [Mass/Vol] 14.8 g/dL Normal 13.5-17.5 [facility] [place] Comment on above: Performed By: #### 1 5587277, 0084802, 842397073, 1758157, 8955636 ####[address] [address] [place] [address] MCH (RBC) [Entitic mass] 27.8 pg Normal 27.0-34.0 [facility] Comment on above: Performed By: #### 1 3507496, 7453277, 970595496, 4125734, 5789423 ####[place] [place] [address] MCHC (RBC) [Mass/Vol] 32.7 g/dL Normal 31.4-36.0 [facility] Comment on above: Performed By: #### 1 5401651, 0928021, 450431513, 6425981, 8097388 ####[address] [address] [place] [address] MCV (RBC) [Entitic vol] 85.0 fL Normal 80.0-100.0 F [facility] Comment on above: Performed By: #### 1 3003465, 4562620, 187901056, 0808555, 6634792 ####[address] [address] Platelet mean volume (Bld) [Entitic vol] 9.4 fL Normal 6.4-10.8 [facility] [place] Comment on above: Performed By: #### 1 6701871, 4841770, 224238306, 5219188, 0462698 ####[address] [address] Platelets (Bld) [#/Vol] 193.0 E9/L Normal 150.0-500.0 [facility] [place] Comment on above: Performed By: #### 1 4738918, 4732078, 220904797, 8793637, 6846639 ####[address] [address] RBC (Bld) [#/Vol] 5.3 E12/L Normal 4.3-5.9 [facility] [place] Comment on above: Performed By: #### 1 4406027, 3504200, 425407725, 8748353, 5495983 ####[address] [address] WBC corrected for nucl RBC Auto (Bld) [#/Vol] 12.5 E9/L High 4.0-11.0 [facility] Comment on above: Performed By: #### 1 6976078, 8947074, 128522908, 0342283, 6294791 ####[address] [address] CMPon 12-13-2022 Albumin [Mass/Vol] 3.6 g/dL Normal 3.3-5.0 [facility] [place] Comment on above: Performed By: #### 1 9847546, 2933488, 374441503, 5133817, 6626982 ####[facility] [address] [place] [address] Albumin/Globulin (S) [Mass conc ratio] 1.0 Low 1.1-2.2 [facility] [place] Comment on above: Performed By: #### 1 9612131, 2091042, 492503473, 8365550, 5047012 ####[facility] [place] [address] [place] [address] ALP [Catalytic activity/Vol] 49 Int._Unit/L Normal 21-98 [facility] [place] Comment on above: Performed By: #### 1 9684473, 3753025, 745018987, 9172175, 4762731 ####[place] [place] [address] ALT No additional P-5'-P [Catalytic activity/Vol] 21 Int._Unit/L Normal 6-46 [facility] [place] Comment on above: Performed By: #### 1 5798273, 9382300, 672143323, 8057661, 0006673 ####[facility] [address] [place] [address] Anion gap [Moles/Vol] 16 mmol/L Normal 6-16 [facility] Comment on above: Performed By: #### 1 7005966, 2865285, 167952467, 7942011, 8611954 ####[place] [address] [place] [address] AST [Catalytic activity/Vol] 21 Int._Unit/L Normal 5-43 [facility] [place] Comment on above: Performed By: #### 1 2141217, 6241328, 195106090, 8724650, 5445935 ####[facility] [address] [place] [address] Bilirubin [Mass/Vol] 0.6 mg/dL Normal 0.0-1.1 [facility] Comment on above: Performed By: #### 1 7303232, 9896640, 438834381, 2542166, 0129587 ####[facility] [address] [facility] [place] [address] Calcium [Mass/Vol] 9.4 mg/dL Normal 8.9-11.1 [facility] Comment on above: Performed By: #### 1 9944965, 8317023, 783799586, 5441537, 5254069 ####[facility] [place] [address] [place] [address] Chloride [Moles/Vol] 99 mmol/L Low 101-111 [facility] Comment on above: Performed By: #### 1 7095128, 5488736, 571888032, 6074041, 9012936 ####[facility] [place] [address] [place] [address] CO2 [Moles/Vol] 31 mmol/L Normal 21-31 [facility] Comment on above: Performed By: #### 1 7162124, 7663679, 305022244, 3573687, 9785467 ####[facility] [place] [address] [facility] [place] [address] Creatinine [Mass/Vol] 1.5 mg/dL High 0.5-1.[address] [facility] Comment on above: Performed By: #### 1 9941733, 2238677, 658475002, 0658847, 0196651 ####[facility] [address] [place] [address] Globulin (S) [Mass/Vol] 3.7 g/dL Normal 1.4-4.0 F [facility] Comment on above: Performed By: #### 1 [id number], 5149355, [id number], 3218698, 7437496 ####[facility] [address] [place] [address] Glucose [Mass/Vol] 128 mg/dL Normal 55-199 [facility] Comment on above: Result Comment: If t his glucose result represents a fasting glucose, interpretation should refer to the following reference range: 55-99 mg/dL Performed By: #### 1 [id number], 5353207, [id number], 1981301, 4470025 ####[facility] [address] [place] [address] Potassium [Moles/Vol] 4.1 mmol/L Normal 3.5-5.3 [facility] Comment on above: Performed By: #### 1 8309802, 9392737, 340301075, 4881504, 9320124 ####[facility] [address]wh[address] [place] [address] Protein [Mass/Vol] 7.3 g/dL Normal 6.0-7.8 [facility] Comment on above: Performed By: #### 1 5035837, 1813947, 559971741, 4835852, 3964253 ####[facility] [address]op[address] [place] [address] Sodium [Moles/Vol] 142 mmol/L Normal 135-145 [facility] Comment on above: Performed By: #### 1 7003291, 3112622, [id number], 7390615, 1096137 ####[facility] [address] [place] [address] Urea nitrogen [Mass/Vol] 57 mg/dL High 5-21 [facility] Comment on above: Performed By: #### 1 1740829, 4165103, [id number], 6104309, 1720314 ####[facility] [address] [place] [address] Urea nitrogen/Creatinine [Mass ratio] 38 No Units High 10-20 [facility] Comment on above: Performed By: #### 1 9140793, 1163346, [id number], 7251905, 1745015 ####[facility] [address] [place] [address] Capillary Glucose POCon 07- Glucose [Mass/Vol] 256 mg/dL High 55-99 [facility] Comment on above: Result Comment: Yazmin bri Meter Performed By: #### 2 [id number] ####[facility] [address] [place] [address] Glucose [Mass/Vol] 152 mg/dL High 55-99 [facility] Comment on above: Result Comment: Yazmin bri Meter Performed By: #### 2 [id number] ####[facility] [address]juosqu[address] [place] [address] DvnY9bfi 12-13-2022 HbA1c (Bld) [Mass fraction] 6.5 % High <=5.9 [facility] Comment on above: Performed By: #### 1 [id number], 9533178, [id number], 3977257, 0651349 ####[facility] [address]sf[address] [place] [address] eGFRon 12-13-2022 GFR/1.73 sq M.predicted among non-blacks MDRD (S/P/Bld) [Vol rate/Area] 47 mL/min/1.73 m2 Low >=59 [facility] Comment on above: Order Comment: Order added by Discern Expert. Result Comment: Federal Mediation Commissioner earnest kidney disease could be indicated at eGFR's of less than 60 mL/min/1.73m2. Kidney failure is indicated at less than 15 mL/min/1.73m2. Performed By: #### 1 [id number], 9025668, [id number], 5636674, 1102113 ####[facility] [address] [place] [address] Capillary Glucose POCon 11-22 Glucose [Mass/Vol] 212 mg/dL High 55-99 [facility] Comment on above: Result Comment: Yazmin bri Meter Performed By: #### 2 [id number] ####[facility] [address]jkn[address] [place] [address] Glucose [Mass/Vol] 161 mg/dL High 55-[address] [place] [address] Comment on above: Result Comment: Yazmin bri Meter Performed By: #### 2 [id number] ####[facility] [address] [place] [address] Capillary Glucose POCon 11-22 Glucose [Mass/Vol] 206 mg/dL High 55-99 [facility] Comment on above: Result Comment: Yazmin bri Meter Performed By: #### 2 [id number] ####[facility] [address] [place] [address] Glucose [Mass/Vol] 152 mg/dL [address] Comment on above: Result Comment: Yazmin bri Meter Performed By: #### 2 [id number] ####[facility] [address] [place] [address] Capillary Glucose POCon 11-22 Glucose [Mass/Vol] 140 mg/dL High [address] [place] [address] Comment on above: Result Comment: Yazmin bri Meter Performed By: #### 2 [id number] ####[facility] [address] [place] [address] Capillary Glucose POCon 11-21 Glucose [Mass/Vol] 243 mg/dL [address] Comment on above: Result Comment: Yazmin bri Meter Performed By: #### 2 [id number] ####[facility] [address] [place] [address] Glucose [Mass/Vol] 157 mg/dL [address] Comment on above: Result Comment: Yazmin bri Meter Performed By: #### 2 [id number] ####[facility] [address] [place] [address] Capillary Glucose POCon 11-21 Glucose [Mass/Vol] 181 mg/dL [address] Comment on above: Result Comment: Yazmin bri Meter Performed By: #### 2 [id number] ####[facility] [address] [place] [address] Capillary Glucose POCon 11-21 Glucose [Mass/Vol] 149 mg/dL [address] Comment on above: Result Comment: Yazmin bri Meter Performed By: #### 2 [id number] ####[facility] [address] [place] [address] Glucose [Mass/Vol] 164 mg/dL [address] Comment on above: Result Comment: Yazmin bri Meter Performed By: #### 2 05063656 ####[facility] [address] [place] [address] Capillary Glucose POCon 11-21 Glucose [Mass/Vol] 265 mg/dL High 55-99 [facility] Comment on above: Result Comment: Yazmin bri Meter Performed By: #### 2 [id number] ####[facility] [address] [place] [address] Glucose [Mass/Vol] 129 mg/dL High 55-99 [facility] Comment on above: Result Comment: Yazmin bri Meter Performed By: #### 2 [id number] ####[facility] [address] [place] [address] Family Medicine Office/Clini c Noteon 12-06-2022 Family Medicine Office/Clinic Note Normal [facility] Comment on above: Result Comment: Elec tronically Signed By: SHAISTA POTTS, Donta\.br\Date and Time Signed: 12/06/22 21:11 EDT Capillary Glucose POCon 11-21 Glucose [Mass/Vol] 196 mg/dL High 55- [facility] Comment on above: Result Comment: Yazmin bri Meter Performed By: #### 2 [id number] ####[facility] [address] [place] [address] Glucose [Mass/Vol] 159 mg/dL High 55-99 [facility] Comment on above: Result Comment: Yazmin bri Meter Performed By: #### 2 [id number] ####[facility] [address] [place] [address] Capillary Glucose POCon 11-21 Glucose [Mass/Vol] 195 mg/dL High 55-99 [facility] Comment on above: Result Comment: Gareth guerrero RN/ Performed By: #### 2 [id number] ####[facility] [address] [place] [address] Insurance Correspondence Off ice12-04-2022 Insurance Correspondence Office [id number]# 1.00CD:127 Normal [facility] Physician Orderon 12-03-2022 Physician Order [id number]# 1.00CD:127 Normal [facility] CHEMISTRYOrdered By: Lab ROP User on 12-02-2022 Glucose [Mass/Vol] 227 mg/dL High 55 - 99 mg/dL [facility] Subsection Comment on above: Result Comment: Gareth GARDINER POC Device SN [id number] Invalid Interpretation Code [facility] Subsection POC User ID [id number] Invalid Interpretation Code [facility] Subsection POC Username KINGSTON JAMISON Invalid Interpretation Code [facility] Subsection Glucose [Mass/Vol] 127 mg/dL High 55 - 99 mg/dL [facility] Subsection Comment on above: Result Comment: Gareth GARDINER POC Device SN [id number] Invalid Interpretation Code FT POC Subsection POC User ID [id number] Invalid Interpretation Code [facility] P[facility] Subsection POC Username TOYIN REYNOLDS Invalid Interpretation Code [facility] P[facility] Subsection Capillary Glucose POCon 11-21 Glucose [Mass/Vol] 227 mg/dL High 55-99 [facility] Comment on above: Result Comment: Gareth GARDINER Performed By: #### 2 [id number] ####[facility] [address] [place] [address] Glucose [Mass/Vol] 127 mg/dL High 55-99 [facility] Comment on above: Result Comment: Gareth GARDINER Performed By: #### 2 [id number] ####[facility] [address] [place] [address] Coding Queryon 12-02-2022 Coding Query Normal [facility] Discharge Note-Nursingon Discharge Note-Nursing Normal [facility] Inpatient Clinical Summaryon 12-02-2022 Inpatient Clinical Summary Normal [facility] Inpatient Patient Summaryon 12-02-2022 Inpatient Patient Summary Normal [facility] Insurance Correspondence Off iceon 12-02-2022 Insurance Correspondence Office [id number]#1. 00CD:127 Normal [facility] Interdisciplinary Note - Santosh e Manageron 12-02-2022 Interdisciplinary Note - Education Coordinator Normal [facility] Comment on above: Result Comment: Elec tronically Signed By: Lisa Weems RN\.br\Date and Time Signed: 12/02/22 09:31 EDT Monitor Recordon 12-02-2022 Monitor Record [id number]# 1.00CD:127 Normal [facility] Physician Orderon 12-02-2022 Physician Order [id number]# 1.00CD:127 Normal [facility] Progress Note-Physicianon Progress Note-Physician Normal F [facility] Comment on above: Result Comment: Elec tronically Signed By: Adeline COLEMAN\.br\Date and Time Signed: 12/01/22 18:43 EDT\.br\Electronically Co-Signed By: Juan Hdz DO\.br\Date and Time Co-Signed: 12/02/22 07:20 EDT Transfer Documentson 023 Transfer Documents [id number]# 1.00CD:127 Normal [facility] BMPon 12-01-2022 Anion gap [Moles/Vol] 13 mmol/L Normal 6-16 [facility] Comment on above: Performed By: #### 1 1653233, 0302694, 4354920, 1868193 ####[facility] [address] [place] [address] Calcium [Mass/Vol] 9.1 mg/dL Normal 8.9-11.1 [facility] Comment on above: Performed By: #### 1 5116397, 2613527, 9802796, 4610886 ####[facility] [address] [place] [address] Chloride [Moles/Vol] 102 mmol/L Normal 101-111 [facility] Comment on above: Performed By: #### 1 2250316, 4951567, 1405397, 7012975 ####[facility] [address] [place] [address] CO2 [Moles/Vol] 28 mmol/L Normal 21-31 [facility] Comment on above: Performed By: #### 1 9953868, 6008481, 0373433, 3475705 ####[facility] [address] [place] [address] Creatinine [Mass/Vol] 1.3 mg/dL Normal 0.5-1.3 [facility] Comment on above: Performed By: #### 1 2962570, 5944610, 5406909, 2255707 ####[facility] [address] [place] [address] Glucose [Mass/Vol] 97 mg/dL Normal 55-199 [facility] Comment on above: Result Comment: If t his glucose result represents a fasting glucose, interpretation should refer to the following reference range: 55-99 mg/dL Performed By: #### 1 7997039, 3098392, 9960377, 5121197 ####[facility] [address] [facility] [place] [address] Potassium [Moles/Vol] 4.6 mmol/L Normal 3.5-5.3 [facility] Comment on above: Performed By: #### 1 7203678, 8427096, 2250888, 8502963 ####[facility] [address] [facility] [place] [address] Sodium [Moles/Vol] 138 mmol/L Normal 135-145 [facility] Comment on above: Performed By: #### 1 3070605, 8589950, 6753464, 5582701 ####[facility] [address] [facility] [place] [address] Urea nitrogen [Mass/Vol] 24 mg/dL High 5-21 [facility] Comment on above: Performed By: #### 1 0757002, 5971788, 0787722, 6213685 ####[facility] [address] [facility] [place] [address] Urea nitrogen/Creatinine [Mass ratio] 18 No Units Normal 10-20 [facility] Comment on above: Performed By: #### 1 9735669, 0973041, 2647195, 3101146 ####[facility] [address] [place] [address] CHEMISTRYOrdered By: Lab ROP User on 12-01-2022 Glucose [Mass/Vol] 114 mg/dL High 55 - 99 mg/dL [facility] P[facility] Subsection Comment on above: Result Comment: Gareth guerrero RN/ POC Device SN [id number] Invalid Interpretation Code [facility] POC Subsection POC User ID [id number] Invalid Interpretation Code [facility] POC Subsection POC Username NETO CHEEK Invalid Interpretation Code [facility] P[facility] Subsection CHEMISTRYOrdered By: SYSTEM SYSTEM on 12-01-2022 Anion gap [Moles/Vol] 13 mmol/L Normal 6 - 16 mEq/L [facility] Remisol Calcium [Mass/Vol] 9.1 mg/dL Normal 8.9 - 11. 1 mg/dL [facility] Remisol Chloride [Moles/Vol] 102 mmol/L Normal 101 - 1 11 mmol/L FT Remisol CK [Catalytic activity/Vol] 211 [iU]/d Normal 14 - 261 Int._Unit/L [facility] Remisol CO2 [Moles/Vol] 28 mmol/L Normal 21 - 31 mmol/L [facility] Remisol Creatinine [Mass/Vol] 1.3 mg/dL Normal 0.5 - 1.3 mg/dL [facility] Remisol GFR/1.73 sq M.predicted among non-blacks MDRD (S/P/Bld) [Vol rate/Area] 56 mL/min/1.73 m2 Low >=59mL/min/ 1.73 m2 [facility] Chem S Glucose [Mass/Vol] 97 mg/dL Normal 55 - 199 mg/dL FT Remisol Magnesium [Mass/Vol] 2.1 mg/dL Normal 1.3 - 2 .4 mg/dL FT Remisol Potassium [Moles/Vol] 4.6 mmol/L Normal 3.5 - 5.3 mmol/L [facility] Remisol Sodium [Moles/Vol] 138 mmol/L Normal 135 - 145 mmol/L [facility] Remisol Urea nitrogen [Mass/Vol] 24 mg/dL High 5 - 21 mg/dL FT Remisol Urea nitrogen/Creatinine [Mass ratio] 18 mg/mg Normal 10 - 20 [facility] Remisol CKon 12-01-2022 CK [Catalytic activity/Vol] 211 Int._Unit/L Normal 14-261 [facility] Comment on above: Performed By: #### 1 1209379, 5271124, 0003152, 7528856 ####[facility] [address] [place] [address] Capillary Glucose POCon 11-21 Glucose [Mass/Vol] 114 mg/dL High 55-99 [facility] Comment on above: Result Comment: Gareth GARDINER Performed By: #### 2 [id number] ####[facility] [address] [place] [address] Glucose [Mass/Vol] 193 mg/dL High 55-99 [facility] Comment on above: Result Comment: Gareth GARDINER Performed By: #### 2 [id number] ####[facility] [address] [place] [address] Glucose [Mass/Vol] 203 mg/dL High 55-99 [facility] Comment on above: Result Comment: Gareth GARDINER Performed By: #### 2 [id number] ####[facility] [address] [place] [address] Glucose [Mass/Vol] 110 mg/dL High 55-99 [facility] Comment on above: Result Comment: Gareth GARDINER Performed By: #### 2 [id number] ####[facility] [address] [place] [address] Interdisciplinary Note - Santosh e Manageron 12-01-2022 Interdisciplinary Note - Education Coordinator Pt is asleep in bed, no family present. Pt is accepted to [facility], pending precert at this time. Contact information provided and white board updated, CRM following Normal [facility] Comment on above: Result Comment: Elec tronically Signed By: Dank HAYDEN, Lisa\.candice\Date and Time Signed: 12/01/22 08:20 EDT Ionized Calciumon 12-01-2022 Calcium.ionized ISE [Mass/Vol] 4.8 mg/dL Invalid Interpretation Code 4.5-5.6 [facility] Comment on above: Result Comment: Perf ormed at: [facility] [address] [place], [place] [id number] PhD Michael Cortes Performed By: #### 2 172240, 1794094, 7485440, 41334824, 34386343, 3881693, 50868100, 2327695, 15185190, 772922133, 9714263, 2620426 ####[facility] [address] [place] [address] Magnesiumon 12-01-2022 Magnesium [Mass/Vol] 2.1 mg/dL Normal 1.3-2.4 [facility] Comment on above: Performed By: #### 1 1212588, 5224736, 5649391, 1312534 ####[facility] [address] [place] [address] Progress Note-Physicianon Progress Note-Physician Normal F [facility] Comment on above: Result Comment: Elec tronically Signed By: Pao POTTS, Lizeth\.br\Date and Time Signed: 12/01/22 12:41 EDT XR Abdomen 1 Viewon 12-02-19 XR Abdomen 1 View Normal [facility] eGFRon 12-01-2022 GFR/1.73 sq M.predicted among non-blacks MDRD (S/P/Bld) [Vol rate/Area] 56 mL/min/1.73 m2 Low >=59 [facility] Comment on above: Order Comment: Order added by Discern Expert. Result Comment: Federal Mediation Commissioner earnest kidney disease could be indicated at eGFR's of less than 60 mL/min/1.73m2. Kidney failure is indicated at less than 15 mL/min/1.73m2. Performed By: #### 1 4232453, 2885758, 0545056, 1526941 ####[facility] [address] [place] [address] BMPon 11-30-2022 Anion gap [Moles/Vol] 11 mmol/L Normal 6-16 [facility] Comment on above: Performed By: #### 2 082602, 6951015, 71960373 ####[facility] [address] [place] [address] Calcium [Mass/Vol] 9.0 mg/dL Normal 8.9-11.1 [facility] Comment on above: Performed By: #### 2 816001, 9201036, 07668182 ####[facility] [address] [place] [address] Chloride [Moles/Vol] 102 mmol/L Normal 101-111 [facility] Comment on above: Performed By: #### 2 437295, 0674347, 92038805 ####[facility] [address] [place] [address] CO2 [Moles/Vol] 31 mmol/L Normal 21-31 [facility] Comment on above: Performed By: #### 2 140843, 0734348, 02978946 ####[facility] [address] [place] [address] Creatinine [Mass/Vol] 1.1 mg/dL Normal 0.5-1.3 [facility] Comment on above: Performed By: #### 2 997549, 3786156, 98687905 ####[facility] [address] [place] [address] Glucose [Mass/Vol] 114 mg/dL Normal 55-199 [facility] Comment on above: Result Comment: If t his glucose result represents a fasting glucose, interpretation should refer to the following reference range: 55-99 mg/dL Performed By: #### 2 797878, 4312242, 32303406 ####[facility] [address] [place] [address] Potassium [Moles/Vol] 3.4 mmol/L Low 3.5-5.3 [facility] Comment on above: Performed By: #### 2 323866, 6303607, 62690933 ####[facility] [address] [place] [address] Sodium [Moles/Vol] 141 mmol/L Normal 135-145 [facility] Comment on above: Performed By: #### 2 649579, 6518920, 90987321 ####[facility] [address] [place] [address] Urea nitrogen [Mass/Vol] 23 mg/dL High 5-21 [facility] Comment on above: Performed By: #### 2 833644, 1305352, 73824270 ####[facility] [address] [place] [address] Urea nitrogen/Creatinine [Mass ratio] 21 No Units High 10-20 [facility] Comment on above: Performed By: #### 2 632517, 3142748, 84089793 ####[facility] [address] [place] [address] CHEMISTRYOrdered By: SYSTEM SYSTEM on 11-30-2022 Anion gap [Moles/Vol] 11 mmol/L Normal 6 - 16 mEq/L [facility] Remisol Calcium [Mass/Vol] 9.0 mg/dL Normal 8.9 - 11. 1 mg/dL [facility] Chloride [Moles/Vol] 102 mmol/L Normal 101 - 1 11 mmol/L [facility] Remisol CO2 [Moles/Vol] 31 mmol/L Normal 21 - 31 mmol/L [facility] Remisol Creatinine [Mass/Vol] 1.1 mg/dL Normal 0.5 - 1.3 mg/dL [facility] Remisol GFR/1.73 sq M.predicted among non-blacks MDRD (S/P/Bld) [Vol rate/Area] 69 mL/min/1.73 m2 Normal >=59mL/min/ 1.73 m2 [facility] Chem S Glucose [Mass/Vol] 114 mg/dL Normal 55 - 199 mg/dL [facility] Magnesium [Mass/Vol] 1.8 mg/dL Normal 1.3 - 2 .4 mg/dL [facility] Potassium [Moles/Vol] 3.4 mmol/L Low 3.5 - 5.3 mmol/L [facility] Sodium [Moles/Vol] 141 mmol/L Normal 135 - 145 mmol/L [facility] Remisol Urea nitrogen [Mass/Vol] 23 mg/dL High 5 - 21 mg/dL [facility] Remisol Urea nitrogen/Creatinine [Mass ratio] 21 mg/mg High 10 - 20 [facility] Remisol Capillary Glucose POCon 11-21 Glucose [Mass/Vol] 194 mg/dL High 55-99 [facility] Comment on above: Result Comment: Gareth GARDINER Performed By: #### 2 [id number] ####[facility] [address] [place] [address] Glucose [Mass/Vol] 96 mg/dL Normal 55-99 [facility] Comment on above: Performed By: #### 2 [id number] ####[facility] [address] [place] [address] Glucose [Mass/Vol] 130 mg/dL High 55-99 [facility] Comment on above: Result Comment: Gareth guerrero RN/ Performed By: #### 2 [id number] ####[facility] [address] [place] [address] Glucose [Mass/Vol] 113 mg/dL High 55-99 [facility] Comment on above: Result Comment: Gareth GARDINER Performed By: #### 2 [id number] ####[facility] [address] [place] [address] Echo Transthoracic Completeo n 11-30-2022 Echo Transthoracic Complete Normal [facility] Insurance Correspondence Off iceon 11-30-2022 Insurance Correspondence Office [id number]:127 Normal [facility] Interdisciplinary Note - Santosh e Manageron 11-30-2022 Interdisciplinary Note - Education Coordinator Normal [facility] Comment on above: Result Comment: Elec tronically Signed By: Dank HAYDEN, Lisa\.candice\Date and Time Signed: 11/30/22 10:48 EDT Magnesiumon 11-30-2022 Magnesium [Mass/Vol] 1.8 mg/dL Normal 1.3-2.4 [facility] Comment on above: Performed By: #### 2 627126, [id number], [id number] ####[facility] [address] [place] [address] Message from Medicareon 11-21 Message from Medicare [id number] .[id number]:127 Normal [facility] Progress Note-Physicianon Progress Note-Physician Normal [facility] Comment on above: Result Comment: Elec tronically Signed By: Joanie Jiménez MD\.br\Date and Time Signed: 11/30/22 15:13 EDT Progress Note-Physician Normal F [facility] Comment on above: Result Comment: Elec tronically Signed By: Lizeth Cedeno MD\.br\Date and Time Signed: 11/30/22 14:52 EDT UA With Cult Reflexon 2022 Bacteria LM Ql (Urine sed) TRACE Normal Trace [facility] Comment on above: Order Comment: Urina ry Catheter Insertion triggered Urinalysis With Culture Reflex order by discern. Performed By: #### 1 [id number] ####[facility] [address] [place] [address] Bilirubin Ql (U) Negative Normal Negative [facility] Comment on above: Order Comment: Urina ry Catheter Insertion triggered Urinalysis With Culture Reflex order by discern. Performed By: #### 1 [id number] ####[facility] [address] [place] [address] Clarity (U) CLEAR Normal Clear [facility] Comment on above: Order Comment: Urina ry Catheter Insertion triggered Urinalysis With Culture Reflex order by discern. Performed By: #### 1 [id number] ####[facility] [address] [place] [address] Color (U) YELLOW Normal Yellow [facility] Comment on above: Order Comment: Urina ry Catheter Insertion triggered Urinalysis With Culture Reflex order by discern. Performed By: #### 1 [id number] ####[facility] [address] [place] [address] Epithelial cells.squamous LM.HPF (Urine sed) [#/Area] 0-2 Normal 0-2 [facility] Comment on above: Order Comment: Urina ry Catheter Insertion triggered Urinalysis With Culture Reflex order by discern. Performed By: #### 1 [id number] ####[facility] [address] [place] [address] Glucose Test strip (U) [Mass/Vol] Negative Normal Negative [facility] Comment on above: Order Comment: Urina ry Catheter Insertion triggered Urinalysis With Culture Reflex order by discern. Performed By: #### 1 [id number] ####[facility] [address] [place] [address] Hemoglobin Ql (U) Negative Normal Negative [facility] Comment on above: Order Comment: Urina ry Catheter Insertion triggered Urinalysis With Culture Reflex order by discern. Performed By: #### 1 [id number] ####[address] [address] Ketones (U) [Mass/Vol] Negative Normal Negative [facility] Comment on above: Order Comment: Urina ry Catheter Insertion triggered Urinalysis With Culture Reflex order by discern. Performed By: #### 1 [id number] ####[facility] [address] [place] [address] Oildale.plasma/Oildale.R BC (Bld) [Mass ratio] 0-3 Normal 0-3 [facility] Comment on above: Order Comment: Urina ry Catheter Insertion triggered Urinalysis With Culture Reflex order by discern. Performed By: #### 1 [id number] ####[facility] [address] [place] [address] Nitrite Ql (U) Negative Normal Negative [facility] Comment on above: Order Comment: Urina ry Catheter Insertion triggered Urinalysis With Culture Reflex order by discern. Performed By: #### 1 [id number] ####[address] [address] pH (U) 6.0 [pH] Invalid Interpretation Code 5.0-9.0 [facility] Comment on above: Order Comment: Urina ry Catheter Insertion triggered Urinalysis With Culture Reflex order by discern. Performed By: #### 1 [id number] ####[facility] [address] [place] [address] Protein (U) [Mass/Vol] Negative Normal Negative [facility] Comment on above: Order Comment: Urina ry Catheter Insertion triggered Urinalysis With Culture Reflex order by discern. Performed By: #### 1 [id number] ####[address] [address] Specific gravity (U) [Rel density] 1.010 Invalid Interpretation Code 1.005-1.030 [facility] Comment on above: Order Comment: Urina ry Catheter Insertion triggered Urinalysis With Culture Reflex order by discern. Performed By: #### 1 [id number] ####[place] [address] Type of Urine collection method Red Normal [facility] Comment on above: Order Comment: Urina ry Catheter Insertion triggered Urinalysis With Culture Reflex order by discern. Performed By: #### 1 4773684 ####[address] [address] Urobilinogen Qn (U) 0.2 {Lei'U}/dL Normal 0.0-1.0 [facility] Comment on above: Order Comment: Urina ry Catheter Insertion triggered Urinalysis With Culture Reflex order by discern. Performed By: #### 1 [id number] ####[address] [address] WBC Auto Ql (U) Negative Normal Negative [facility] Comment on above: Order Comment: Urina ry Catheter Insertion triggered Urinalysis With Culture Reflex order by discern. Performed By: #### 1 [id number] ####[address] [address] WBC casts LM.LPF (Urine sed) [#/Area] 0-3 Normal [facility] Comment on above: Order Comment: Urina ry Catheter Insertion triggered Urinalysis With Culture Reflex order by discern. Performed By: #### 1 7492260 ####[address] [address] WBC LM.HPF (Urine sed) [#/Area] 0-5 Normal 0-5 [facility] Comment on above: Order Comment: Urina ry Catheter Insertion triggered Urinalysis With Culture Reflex order by discern. Performed By: #### 1 [id number] ####[facility] [address] [place] [address] URINALYSISOrdered By: Houston Castillo on 11-30-2022 Bacteria [...] AM) Normal Negative [facility] UA Auto SS Oild[place].plasma/Oildale.R BC (Bld) [Mass ratio] 0-3 /HPF Normal [...] [facility] UA Auto SS Urobilinogen Qn (U) 0.2773910 {Lei'U}/dL Normal 0.0 - 1.0 EU/dL [facility] UA Auto SS WBC Auto Ql (U) Negative (11/30/22 11:00 AM) Normal Negative [facility] UA Auto SS WBC casts LM.LPF (Urine sed) [#/Area] 0-3 (11/30/22 11:00 AM) Normal [facility] UA Auto SS WBC LM.HPF (Urine sed) [#/Area] 0-5 /HPF Normal 0-5/HPF [facility] UA Auto SS eGFRon 11-30-2022 GFR/1.73 sq M.predicted among non-blacks MDRD (S/P/Bld) [Vol rate/Area] 69 mL/min/1.73 m2 Normal >=59 [facility] Comment on above: Order Comment: Order added by Discern Expert. Result Comment: Federal Mediation Commissioner earnest kidney disease could be indicated at eGFR's of less than 60 mL/min/1.73m2. Kidney failure is indicated at less than 15 mL/min/1.73m2. Performed By: #### 2 639549, 6055981, [id number] ####[facility] [address] [place] [address] Auto Diffon 11-29-2022 Basophils/100 WBC (Bld) 0.5 % Normal 0.0-2.0 F [facility] Comment on above: Order Comment: Order Added by Discern Expert. Performed By: #### 2 699921, 2452923, 7637134, 67071243, 19349921, 2608367, 98209266, 5275927, 62966881, 761910947, 5482629, 1870138 ####[facility] [address] [place] [address] Basophils/Leukocytes Auto (Bld) [Pure # fraction] 0.0 E9/L Normal 0.0-0.2 [facility] Comment on above: Order Comment: Order Added by Discern Expert. Performed By: #### 2 820295, 2124398, 0771545, 10622330, 39756766, 2479147, 83301768, 8742465, 23657639, 267829850, 8654271, 8583198 ####[facility] [address] [place] [address] Eosinophils/100 WBC (Bld) 8.4 % High 0.0-8.0 [facility] Comment on above: Order Comment: Order Added by Discern Expert. Performed By: #### 2 048218, 3506185, 2247880, 09878549, 83454175, 2488922, 82508733, 3141046, 70922816, 836348224, 0444609, 6833599 ####[address] [place] [address] Eosinophils/Leukocytes Auto (Bld) [Pure # fraction] 0.6 E9/L High 0.0-0.5 [facility] Comment on above: Order Comment: Order Added by Discern Expert. Performed By: #### 2 554064, 4103528, 4695930, 84554196, 40897683, 7736484, 30137596, 0505729, 33332643, 457968105, 4447506, 0105581 ####[address] [place] [address] Lymphocytes/100 WBC (Bld) 15.8 % Normal 14.0-50.0 [facility] Comment on above: Order Comment: Order Added by Discern Expert. Performed By: #### 2 951342, 9332449, 8769166, 21717958, 73777495, 9459023, 68686783, 5030627, 80167720, 763558804, 6703078, 3044682 ####[facility] [address] [place] [address] Lymphocytes/Leukocytes Auto (Bld) [Pure # fraction] 1.2 E9/L Normal 1.0-4.0 [facility] Comment on above: Order Comment: Order Added by Discern Expert. Performed By: #### 2 886866, 2884325, 7567793, 23053381, 85799233, 6127388, 43675732, 2470823, 94680929, 907576332, 7652363, 2065374 ####[facility] [address] [place] [address] Monocytes/100 WBC (Bld) 8.4 % Normal 4.0-14.0 [facility] Comment on above: Order Comment: Order Added by Discern Expert. Performed By: #### 2 323203, 3394377, 8469207, 61066014, 79792775, 9052609, 44046457, 8305194, 46439109, 790333420, 0094278, 7442054 ####[facility] [address] [place] [address] Monocytes/Leukocytes Auto (Bld) [Pure # fraction] 0.6 E9/L Normal 0.2-1.0 [facility] Comment on above: Order Comment: Order Added by Discern Expert. Performed By: #### 2 647379, 0143209, 6161043, 11569313, 34629546, 8865806, 09440780, 9717546, 43626047, 638130871, 4798814, 4902656 ####[address] [place] [address] Neutrophils/100 WBC (Bld) 66.9 % Normal 36.0-75.0 [facility] Comment on above: Order Comment: Order Added by Discern Expert. Performed By: #### 2 678750, 7558330, 1058836, 46484275, 93594263, 5992846, 92555422, 2824221, 96056032, 830616074, 7550857, 9059001 ####[facility] [address] [place] [address] Neutrophils/Leukocytes Auto (Bld) [Pure # fraction] 5.0 E9/L Normal 2.0-7.5 [facility] Comment on above: Order Comment: Order Added by Discern Expert. Performed By: #### 2 980014, 4479828, 4737749, 84542157, 08561484, 4483057, 95472740, 0271649, 68622267, 052296712, 2508154, 4560793 ####[facility] [address] [place] [address] BMPon 11-29-2022 Anion gap [Moles/Vol] 13 mmol/L Normal 6-16 [facility] Comment on above: Performed By: #### 2 150516, 0088700, 7517859, 56037234, 17466101, 0659840, 88778279, 4917187, 79194651, 557300340, 8847149, 1309250 ####[facility] [address] [place] [address] Calcium [Mass/Vol] 9.1 mg/dL Normal 8.9-11.1 [facility] Comment on above: Performed By: #### 2 610138, 5220780, 8987141, 63805383, 14335952, 5556351, 86569308, 4300678, 87382311, 157992929, 0408139, 0944471 ####[facility] [address] [place] [address] Chloride [Moles/Vol] 102 mmol/L Normal 101-111 [facility] Comment on above: Performed By: #### 2 286711, 2250939, 4459940, 30751823, 56519679, 2138961, 33525859, 3340811, 42652944, 048571469, 9179927, 1191731 ####[facility] [address] [place] [address] CO2 [Moles/Vol] 29 mmol/L Normal 21-31 [facility] Comment on above: Performed By: #### 2 144997, 6512121, 9517851, 02138058, 37541902, 0424831, 22951302, 2054521, 74561643, 880444371, 9850214, 4968374 ####[facility] [address] [place] [address] Creatinine [Mass/Vol] 1.1 mg/dL Normal 0.5-1.3 [facility] Comment on above: Performed By: #### 2 676959, 4797737, 4626465, 11651527, 95337493, 0521596, 99729663, 2982156, 71059190, 406018510, 7357999, 6013635 ####[facility] [address] [place] [address] Glucose [Mass/Vol] 95 mg/dL Normal 55-199 [facility] Comment on above: Result Comment: If t his glucose result represents a fasting glucose, interpretation should refer to the following reference range: 55-99 mg/dL Performed By: #### 2 300055, 6678475, 5577468, 67356583, 95686585, 2904390, 11620710, 5259125, 37391474, 711240916, 9044445, 4138233 ####[facility] [address] [place] [address] Potassium [Moles/Vol] 3.9 mmol/L Normal 3.5-5.3 [facility] Comment on above: Performed By: #### 2 789891, 7711132, 8183157, 79859593, 01310972, 0867226, 73539184, 8549900, 58799013, 028807095, 0740915, 4694468 ####[facility] [address] [place] [address] Sodium [Moles/Vol] 140 mmol/L Normal 135-145 [facility] Comment on above: Performed By: #### 2 390500, 5860649, 9186633, 59096536, 17239263, 5098724, 62283055, 6772621, 13110049, 179268695, 8676358, 0965661 ####[facility] [address] [place] [address] Urea nitrogen [Mass/Vol] 16 mg/dL Normal 5-21 [facility] Comment on above: Performed By: #### 2 617115, 4038168, 9372329, 46094739, 55602525, 4111314, 55410013, 3907233, 87534729, 622984020, 0044164, 5813787 ####[facility] [address] [place] [address] Urea nitrogen/Creatinine [Mass ratio] 14 No Units Normal 10-20 [facility] Comment on above: Performed By: #### 2 835342, 5139016, 0561559, 40910578, 45697700, 0427669, 40577231, 9222674, 71946896, 171159208, 3571208, 3430901 ####[facility] [address] [place] [address] BNPon 11-29-2022 Natriuretic peptide B (Bld) [Mass/Vol] 855 pg/mL High 5-80 [facility] Comment on above: Performed By: #### 2 921167, 0826685, 0420385, 01859289, 38827238, 9045463, 07325891, 4508693, 98025341, 664626472, 3442942, 8491862 ####[facility] [address] [place] [address] CBC w/ Auto Diffon 3 Erythrocyte distribution width (RBC) [Ratio] 14.9 % High 10.9-14.2 [facility] Comment on above: Performed By: #### 2 999225, 6567011, 2540613, 77950541, 96519367, 8607110, 41405207, 4843387, 75480085, 763805886, 7494249, 9423829 ####[facility] [address] [place] [address] Hematocrit (Bld) [Volume fraction] 38.1 % Normal 37.7-49.0 [facility] Comment on above: Performed By: #### 2 647958, 7491830, 8550634, 55381481, 90577206, 3874991, 99529141, 4565544, 71713527, 327356001, 2628218, 2315041 ####[facility] [address] [place] [address] Hemoglobin (Bld) [Mass/Vol] 12.8 g/dL Low 13.5-17.5 [facility] Comment on above: Performed By: #### 2 052486, 8589779, 1347981, 04582902, 23698406, 1741930, 28534108, 7319204, 21978719, 404932179, 5628216, 3527314 ####[facility] [address] [place] [address] MCH (RBC) [Entitic mass] 29.0 pg Normal 27.0-34.0 [facility] Comment on above: Performed By: #### 2 495143, 8173897, 1491288, 10315647, 05020755, 9280592, 16575324, 0578091, 53451403, 792978876, 0228968, 5378700 ####[address] [address] MCHC (RBC) [Mass/Vol] 33.7 g/dL Normal 31.4-36.0 [facility] Comment on above: Performed By: #### 2 047881, 6316360, 5455469, 79463928, 25025754, 6780196, 25129579, 2158193, 53200821, 553641272, 2132959, 8301269 ####[facility] [address] [place] [address] MCV (RBC) [Entitic vol] 86.1 fL Normal 80.0-100.0 F [facility] Comment on above: Performed By: #### 2 953890, 7412536, 7802705, 53381228, 93066488, 0115836, 34756040, 1447808, 36162349, 021965843, 5710565, 9648316 ####[facility] [address] [place] [address] Platelet mean volume (Bld) [Entitic vol] 10.9 fL High 6.4-10.8 [facility] Comment on above: Performed By: #### 2 538499, 7914417, 4643259, 77286656, 99746233, 4175358, 65692579, 8091374, 55783811, 645200436, 3751536, 9905212 ####[facility] [address] [place] [address] Platelets (Bld) [#/Vol] 189.0 E9/L Normal 150.0-500.0 [facility] Comment on above: Performed By: #### 2 938774, 6575800, 1052180, 96509105, 14677776, 7289844, 80485122, 4226023, 92604282, 435445491, 4147814, 8925459 ####[address] [place] [address] RBC (Bld) [#/Vol] 4.4 E12/L Normal 4.3-5.9 [facility] Comment on above: Performed By: #### 2 121180, 7745268, 1699129, 08151167, 82183388, 9571552, 74234418, 5942171, 20698385, 115953355, 4593627, 0587677 ####[facility] [address] [place] [address] WBC corrected for nucl RBC Auto (Bld) [#/Vol] 7.4 E9/L Normal 4.0-11.0 [facility] Comment on above: Performed By: #### 2 876523, 8968071, 7906648, 26635164, 04793270, 6548094, 52087774, 9033702, 45804639, 557593036, 3914772, 8196907 ####[facility] [address] [place] [address] CHEMISTRYOrdered By: SYSTEM SYSTEM on 11-29-2022 Albumin [...] 855 pg/mL High 5 - 80 pg/mL [facility] HemeManSS CHEMISTRYOrdered By: Marian peterson DomainUser on 11-29-2022 Calcium.ionized ISE [Mass/Vol] 4.8 mg/dL Invalid Interpretation Code 4.5-5.6mg/d L [facility] SendOutsSS Comment on above: Result Comment: Perf ormed at: [facility] [address] [id number] PhD Michael Cortes CKon 11-29-2022 CK [Catalytic activity/Vol] 1096 Int._Unit/L Abnormal 14-261 [facility] Comment on above: Result Comment: Crit ical Result verified by repeat analysis\Critical Result [id number] Called to MANAS BARBA AT by AMY JOHNSON and read back for confirmation at 11/29/2022 06:40:15 Performed By: #### 2 633515, 7931030, 4267499, 92726708, 62719207, 2744683, 86381360, 5476035, 59249253, 031197101, 5049680, 9549094 ####[facility] [address] [place] [address] CT Abdomen/Pelvis w/ Contras ton 11-29-2022 CT Abdomen/Pelvis w/ Contrast Normal [facility] CT Head or Brain w/o Contras ton 11-29-2022 CT Head or Brain w/o Contrast Normal [facility] CTA Cheston 11-29-2022 CTA Chest Normal [facility] Capillary Glucose POCon Glucose [Mass/Vol] 122 mg/dL High 55-99 [facility] Comment on above: Result Comment: Gareth guerrero RN/ Performed By: #### 2 [id number] ####[facility] [address] [place] [address] Glucose [Mass/Vol] 174 mg/dL High 55-99 [facility] Comment on above: Performed By: #### 2 [id number] ####[facility] [address] [place] [address] Glucose [Mass/Vol] 107 mg/dL High 55-99 [facility] Comment on above: Result Comment: Gareth GARDINER Performed By: #### 2 [id number] ####[facility] [address] [place] [address] Consultation Noteon 11-30-19 Consultation Note Normal [facility] Comment on above: Result Comment: Elec tronically Signed By: Marcus POTTS, [place]\Date and Time Signed: 11/29/22 14:44 EDT ED Clinical Summaryon 2022 ED Clinical Summary Normal [facility] ED Note-Physicianon 11-30-19 ED Note-Physician Normal [facility] Comment on above: Result Comment: Elec tronically Signed By: Elkin Hitchcock DO\.br\Date and Time Signed: 11/28/22 22:32 EDT ED Patient Education Noteon 11-29-2022 ED Patient Education Note Normal [facility] ED Patient Summaryon 023 ED Patient Summary Normal [facility] HEMATOLOGYOrdered By: SYSTEM SYSTEM on 11-29-2022 Basophils/100 [...] pg Normal 27. 0 - 34.0 pg [facility] HemeAutoSS MCHC (RBC) [Mass/Vol] 33.7 g/dL Normal 31.4 - 36.0 gm/dL FT HemeAutoSS MCV (RBC) [Entitic vol] 86.1 fL Normal 80.0 - 100.0 fL [facility] HemeAutoSS Platelet mean volume (Bld) [Entitic vol] 10.9 fL High 6.4 - 10.8 fL FT HemeAutoSS Platelets (Bld) [#/Vol] 189.0 E9/L Normal 150. 0 - 500.0 E9/L FT HemeAutoSS RBC (Bld) [#/Vol] 4.4 E12/L Normal 4.3 - 5.9 E12/L [facility] HemeAutoSS Sed Rate Automated 17 mm/h Normal 0 - 19 mm/hr [facility] HemeAutoSS WBC corrected for nucl RBC Auto (Bld) [#/Vol] 7.4 E9/L Normal 4.0 - 11.0 E9/L [facility] HemeAutoSS Hep Func Panelon 11-29-2022 Albumin [Mass/Vol] 3.6 g/dL Normal 3.3-5.0 [facility] Comment on above: Performed By: #### 2 019494, 7231125, 9638912, 20541467, 74526516, 9728596, 82927739, 9805387, 66975385, 823853383, 6513598, 6685220 ####[facility] [address] [place] [address] Albumin/Globulin (S) [Mass conc ratio] 1.2 Normal 1.1-2.2 [facility] Comment on above: Performed By: #### 2 813120, 8820580, 8106019, 64337283, 69233343, 0857937, 45375410, 2206596, 46360612, 415335603, 2758798, 2713744 ####[facility] [address] [place] [address] ALP [Catalytic activity/Vol] 40 Int._Unit/L Normal 21-98 [facility] Comment on above: Performed By: #### 2 828061, 8764282, 2761940, 22832222, 09846640, 8820436, 15037193, 0444424, 63777622, 311882466, 3890830, 9018589 ####[facility] [address] [place] [address] ALT No additional P-5'-P [Catalytic activity/Vol] 17 Int._Unit/L Normal 6-46 [facility] Comment on above: Performed By: #### 2 099995, 6345889, 1927228, 60476069, 73291804, 4775419, 03490216, 4970593, 38364394, 944749087, 1696385, 9564281 ####[facility] [address] [place] [address] AST [Catalytic activity/Vol] 33 Int._Unit/L Normal 5-43 [facility] Comment on above: Performed By: #### 2 674401, 9742053, 4445010, 11628638, 83658649, 5886658, 06996742, 2774275, 04522378, 595773988, 8184595, 2956388 ####[facility] [address] [place] [address] Bilirubin [Mass/Vol] 1.1 mg/dL Normal 0.0-1.1 [facility] Comment on above: Performed By: #### 2 635265, 0984910, 6149089, 78891724, 36716216, 5369630, 02142702, 8163817, 47471653, 148887378, 1541195, 5538713 ####[facility] [address] [place] [address] Bilirubin.direct [Mass/Vol] 0.2 mg/dL Normal 0.1-0.4 [facility] Comment on above: Performed By: #### 2 918674, 7385146, 1613060, 34550169, 38429265, 6578012, 68016562, 2341671, 13145888, 513715817, 9739732, 3296910 ####[facility] [address] [place] [address] Bilirubin.indirect [Mass or moles/Vol] 0.9 mg/dL Normal 0.1-0.9 [facility] Comment on above: Performed By: #### 2 878039, 0181914, 8577627, 40955771, 73008177, 3266607, 00869275, 0819414, 45829459, 019793163, 1985740, 9478631 ####[facility] [address] [place] [address] Globulin (S) [Mass/Vol] 3.1 g/dL Normal 1.4-4.0 F [facility] Comment on above: Performed By: #### 2 705584, 7050180, 7255444, 21018073, 98757805, 9940204, 37379342, 8551507, 08809623, 865988312, 6399588, 1407036 ####[facility] [address] [place] [address] Protein [Mass/Vol] 6.7 g/dL Normal 6.0-7.8 [facility] Comment on above: Performed By: #### 2 052185, 7638083, 7721934, 11451201, 71338325, 9456353, 48929126, 0101051, 08199985, 555854869, 6957203, 3859073 ####[facility] [address] [place] [address] Interdisciplinary Note - Santosh e Manageron 11-29-2022 Interdisciplinary Note - Education Coordinator Normal [facility] Comment on above: Result Comment: Elec tronically Signed By: Jose HAYDEN, Norma\.br\Date and Time Signed: 11/29/22 15:07 EDT Lipid Panelon 11-29-2022 Cholesterol [Mass/Vol] 114 mg/dL Low 120-200 Fi [facility] Comment on above: Performed By: #### 2 925618, 6549843, 6204610, 38982391, 52586891, 9055357, 36446833, 0524915, 25322480, 534360390, 3104866, 6951652 ####[facility] [address] [place] [address] Cholesterol in HDL [Mass/Vol] 50 mg/dL Invalid Interpretation Code [facility] Comment on above: Result Comment: HDL > or equal to 60 mg/dL: Low cardiovascular riskHDL < 40 mg/dL : High cardiovascular risk Performed By: #### 2 119420, 4922813, 2258512, 10792238, 29671747, 1625682, 58999050, 9997115, 55918952, 596219781, 8526593, 2695712 ####[facility] [address] [place] [address] Cholesterol in LDL [Mass/Vol] 43 mg/dL Normal <=129 [facility] Comment on above: Performed By: #### 2 954272, 9701043, 2508874, 22064168, 04589264, 9152688, 12245510, 9650655, 65150784, 710803725, 6408308, 6413549 ####[facility] [address] [place] [address] Cholesterol in VLDL [Mass/Vol] 14 mg/dL Normal 7-40 [facility] Comment on above: Performed By: #### 2 191399, 4095342, 7812443, 29067397, 77541755, 9383343, 34979971, 7474232, 99773219, 141683977, 4960895, 6890837 ####[facility] [address] [place] [address] Triglyceride [Mass/Vol] 72 mg/dL Normal <=149 F [facility] Comment on above: Performed By: #### 2 606071, 3844762, 5676593, 12682635, 40789506, 3496940, 84390669, 7684865, 19898398, 802230433, 4861270, 4567868 ####[facility] [address] [place] [address] Monitor Recordon 11-29-2022 Monitor Record [id number]# 1.00CD:127 Normal [facility] Monitor Record [id number]# 1.00CD:127 Normal [facility] Monitor Record [id number]# 1.00CD:127 Normal [facility] Monitor Record [id number]# 1.00CD:127 Normal [facility] Monitor Record [id number]# 1.00CD:127 Normal [facility] Monitor Record [id number]# 1.00CD:127 Normal [facility] Monitor Record [id number]# 1.00CD:127 Normal [facility] Monitor Record [id number]# 1.00CD:127 Normal [facility] Progress Note-Physicianon Progress Note-Physician Normal F [facility] Comment on above: Result Comment: Elec tronically Signed By: Alex STEIN, [place]\.br\Date and Time Signed: 11/29/22 10:54 EDT RAD - Preliminary Cat Scan R eporton 11-29-2022 RAD - Preliminary Cat Scan Report [id number] #1.00CD:127 Normal [facility] Sed Rate Automatedon 023 Sed Rate Automated 17 mm/hr Normal 0-19 [facility] Comment on above: Performed By: #### 2 138956, 8870245, 4540890, 26136025, 90125027, 5347665, 71458310, 7818099, 62664126, 962324325, 1188154, 5288492 ####[facility] [address] [place] [address] TSH With T4fr Reflexon 11-29 TSH Qn 3.43 m[IU]/L Normal 0.34-5.60 [facility] Comment on above: Performed By: #### 2 930125, 9467920, 4184579, 43492109, 13384052, 1131249, 43895368, 4098736, 50553462, 081885258, 6668609, 2289136 ####[facility] [address] [place] [address] Troponin 6 Hr.on 11-29-2022 Troponin I.cardiac [Mass/Vol] 32.60 pg/mL Normal 15.90-38.40 [facility] Comment on above: Result Comment: The 95% CI (Confidence Interval) PPV (Positive Predictive Value) for myocardial infarction in females is 38 pg/mL, in males 51 pg/mL. The results should be used in conjunction with clinical conditions of myocardial infarction.(Access High Sensitivity Troponin I Instructions For Use, [employer], December 2017) Performed By: #### 1 [id number] ####[facility] [address] [place] [address] Troponin 9 Hr.on 11-29-2022 Troponin I.cardiac [Mass/Vol] 37.00 pg/mL Normal 15.90-38.40 [facility] Comment on above: Result Comment: The 95% CI (Confidence Interval) PPV (Positive Predictive Value) for myocardial infarction in females is 38 pg/mL, in males 51 pg/mL. The results should be used in conjunction with clinical conditions of myocardial infarction.(Access High Sensitivity Troponin I Instructions For Use, [employer], December 2017) Performed By: #### 1 [id number] ####[facility] [address] [place] [address] Vitamin D 25 Hydroxyon 11-29 25-hydroxyvitamin D3 [Mass/Vol] ng/mL Low 30.0-100.0 [facility] Comment on above: Result Comment: Vit palacios D deficiency has been defined as a level of serum 25-OH vitamin D less than 20 ng/mL (1,2) by the [place] of [employer] and an Endocrine Society practice guideline. The Endocrine Society further defined vitamin D insufficiency as a level between 21 and 29 ng/mL (2). 1. IOM ([place] of [employer]). 2010. Dietary reference intakes for calcium and D. [place]: The National Academies Press. 2. Patricia MF, Parisa AGUIRRE, Reji PETERS, et al. Evaluation, treatment, and prevention of vitamin D deficiency: an Endocrine Society clinical practice guideline. JCEM. 2010; 96 (7):1911-30. Performed By: #### 2 860623, 3585204, 4900477, 28039459, 23924129, 1036535, 75044599, 8442112, 66873667, 251985253, 7121233, 7427789 ####[facility] [address] [place] [address] eGFRon 11-29-2022 GFR/1.73 sq M.predicted among non-blacks MDRD (S/P/Bld) [Vol rate/Area] 69 mL/min/1.73 m2 Normal >=59 [facility] Comment on above: Order Comment: Order added by Discern Expert. Result Comment: Federal Mediation Commissioner earnest kidney disease could be indicated at eGFR's of less than 60 mL/min/1.73m2. Kidney failure is indicated at less than 15 mL/min/1.73m2. Performed By: #### 2 089822, 5037433, 3288396, 31251404, 64666090, 0427980, 00832701, 4553220, 36242877, 589817807, 5054072, 4160509 ####[facility] [address] [place] [address] Auto Diffon 11-28-2022 Basophils/100 WBC (Bld) 0.7 % Normal 0.0-2.0 F [facility] Comment on above: Order Comment: Order Added by Discern Expert. Performed By: #### 1 0571295, 8067207, 1242984, 1487464, 10743042 ####[facility] [address] [place] [address] Basophils/Leukocytes Auto (Bld) [Pure # fraction] 0.0 E9/L Normal 0.0-0.2 [facility] Comment on above: Order Comment: Order Added by Discern Expert. Performed By: #### 1 5910696, 2467267, 4405102, 4053183, 03645446 ####[address] [place] [address] Eosinophils/100 WBC (Bld) 7.4 % Normal 0.0-8.0 [facility] Comment on above: Order Comment: Order Added by Discern Expert. Performed By: #### 1 5059234, 4547733, 7480931, 5269857, 84596430 ####[address] [place] [address] Eosinophils/Leukocytes Auto (Bld) [Pure # fraction] 0.5 E9/L Normal 0.0-0.5 [facility] Comment on above: Order Comment: Order Added by Discern Expert. Performed By: #### 1 1596700, 9592730, 7906572, 9592932, 92098551 ####[address] [address] Lymphocytes/100 WBC (Bld) 9.3 % Low 14.0-50.0 [facility] Comment on above: Order Comment: Order Added by Bethany Expert. Performed By: #### 1 5867668, 6637364, 0168181, 6641818, 91967878 ####[address] [address] Lymphocytes/Leukocytes Auto (Bld) [Pure # fraction] 0.7 E9/L Low 1.0-4.0 [facility] Comment on above: Order Comment: Order Added by Bethany Expert. Performed By: #### 1 7078542, 9718069, 9010497, 0494410, 81301759 ####[address] [address] Monocytes/100 WBC (Bld) 6.6 % Normal 4.0-14.0 [facility] Comment on above: Order Comment: Order Added by Bethany Expert. Performed By: #### 1 1031530, 1128329, 5312400, 3982009, 62287109 ####[address] [place] [address] Monocytes/Leukocytes Auto (Bld) [Pure # fraction] 0.5 E9/L Normal 0.2-1.0 [facility] Comment on above: Order Comment: Order Added by Discern Expert. Performed By: #### 1 0752694, 4995661, 7763800, 4958936, 20050214 ####[address] [place] [address] Neutrophils/100 WBC (Bld) 76.0 % High 36.0-75.0 [facility] Comment on above: Order Comment: Order Added by Bethany Expert. Performed By: #### 1 9374669, 9761028, 2391623, 2610514, 82137959 ####[address] [place] [address] Neutrophils/Leukocytes Auto (Bld) [Pure # fraction] 5.4 E9/L Normal 2.0-7.5 [facility] Comment on above: Order Comment: Order Added by Bethany Expert. Performed By: #### 1 4925416, 3749769, 6350460, 9152945, 74957005 ####[address] [place] [address] BMPon 11-28-2022 Creatinine [Mass/Vol] 1.0 mg/dL Normal 0.5-1.3 [facility] Comment on above: Performed By: #### 1 0603789, 0000654, 1153602, 2937791, 02523781 ####[address] [place] [address] Urea nitrogen [Mass/Vol] 16 mg/dL Normal 5-21 [facility] Comment on above: Performed By: #### 1 8932211, 4239822, 6467086, 2722372, 63984855 ####[address] [place] [address] Urea nitrogen/Creatinine [Mass ratio] 16 No Units Normal 10-20 [facility] Comment on above: Performed By: #### 1 5540715, 4425300, 4069616, 7375891, 35833469 ####[facility] [address] [facility] [place] [address] Anion gap [Moles/Vol] 10 mmol/L Normal 6-16 [facility] Comment on above: Performed By: #### 1 0875463, 8923939, 0000021, 8190967, 27670926 ####[facility] [address] [place] [address] Calcium [Mass/Vol] 8.8 mg/dL Low 8.9-11.1 [facility] Comment on above: Performed By: #### 1 4077275, 1550031, 8149693, 3167723, 98175359 ####[facility] [address] [place] [address] Chloride [Moles/Vol] 105 mmol/L Normal 101-111 [facility] Comment on above: Performed By: #### 1 5543042, 1259466, 1797817, 2795036, 12871630 ####[facility] [address] [place] [address] CO2 [Moles/Vol] 28 mmol/L Normal 21-31 [facility] Comment on above: Performed By: #### 1 9480546, 0581815, 1597404, 3397415, 48373119 ####[facility] [address] [facility] [place] [address] Glucose [Mass/Vol] 114 mg/dL Normal 55-199 [facility] Comment on above: Result Comment: If t his glucose result represents a fasting glucose, interpretation should refer to the following reference range: 55-99 mg/dL Performed By: #### 1 3065175, 4500900, 7949133, 5795543, 08877895 ####[facility] [address] [facility] [place] [address] Potassium [Moles/Vol] 4.1 mmol/L Normal 3.5-5.3 [facility] Comment on above: Performed By: #### 1 7822148, 1638657, 3412339, 2834622, 88536631 ####[facility] [address] [place] [address] Sodium [Moles/Vol] 139 mmol/L Normal 135-145 [facility] Comment on above: Performed By: #### 1 5547539, 8512204, 3932403, 3325744, 05406737 ####[facility] [address] [place] [address] Blood Gas Art, with Lytes, G christal, [place] 11-28-2022 a/A Ratio Art 53.40 % Normal >=0.80 [facility] Comment on above: Performed By: #### 4 78719115 ####[facility] [address] [place] [address] AaDO2 Art 64.9 mmHg High 5.0-15.0 [facility] Comment on above: Performed By: #### 4 52210470 ####[facility] [address] [place] [address] Allens Test Positive Normal [facility] Comment on above: Performed By: #### 4 20750577 ####[facility] [address] [place] [address] Base Excess Arterial 2.9 mmol/L Normal >=2.8 [facility] Comment on above: Performed By: #### 4 93945477 ####[facility] [address] [place] [address] cCa2+ Art 4.88 mg/dL Normal 4.40-5.30 [facility] Comment on above: Performed By: #### 4 07383298 ####[facility] [address] [place] [address] cCl- Art 103.0 mmol/L Normal 101.0-111.0 [facility] Comment on above: Performed By: #### 4 47676069 ####[facility] [address] [place] [address] cGlu Art 98 mg/dL Normal 55-99 [facility] Comment on above: Performed By: #### 4 58213711 ####[facility] [address] [place] [address] cK+ Art 3.6 mmol/L Normal 3.5-5.3 [facility] Comment on above: Performed By: #### 4 03667065 ####[address] [place] [address] cLac Art .6 mmol/L Normal .5-2.2 [facility] Comment on above: Performed By: #### 4 [id number] ####[address] [address] collision mechanic+ Art 139.0 mmol/L Normal 135.0-145.0 [facility] Comment on above: Performed By: #### 4 33568434 ####[address] [address] Drawn by nmb Invalid Interpretation Code [facility] Comment on above: Performed By: #### 4 [id number] ####[address] [place] [address] FCOHb Art 1.5 % Normal 1.5-4.9 [facility] Comment on above: Result Comment: Refe rence rangeNonsmoker <1.5%Smoker <5.0%Heavy Smoker <9.0% Performed By: #### 4 [id number] ####[facility] [address] [facility] [place] [address] FIO2 BG 28 Invalid Interpretation Code [facility] Comment on above: Performed By: #### 4 98635304 ####[facility] [address] [facility] [place] [address] Flow 2 Invalid Interpretation Code [facility] Comment on above: Performed By: #### 4 [id number] ####[facility] [address] [place] [address] FMetHb Art 0.3 % Normal 0.0-1.9 [facility] Comment on above: Performed By: #### 4 [id number] ####[address] [address] FO2Hb Art 93.7 % Normal 93.0-100.0 [facility] Comment on above: Performed By: #### 4 32177986 ####[address] [address] HCO3 (Bld) [Moles/Vol] 26.9 mmol/L High 22.0-26.0 [facility] Comment on above: Performed By: #### 4 [id number] ####[address] [address] [address] Hemoglobin (Bld) [Mass/Vol] 11.9 g/dL Low 12.0-17.0 [facility] [place] Comment on above: Performed By: #### 4 [id number] ####[address] [address] Oxygen saturation in Blood 95.4 % Normal 95.0-100.0 [facility] [place] Comment on above: Performed By: #### 4 [id number] ####[address] [address] P CO2 Arterial 47.6 mmHg High 35.0-45.0 [facility] Comment on above: Performed By: #### 4 [id number] ####[address] [address] P O2 Arterial 74.3 mmHg Low 80.0-100.0 [facility] Comment on above: Performed By: #### 4 [id number] ####[address] [address] pH Arterial 7.387 Normal 7.350-7.450 [facility] [place] Comment on above: Performed By: #### 4 [id number] ####[address] [address] Sample Site R Radial Normal [facility] [place] Comment on above: Performed By: #### 4 [id number] ####[facility] [address] [place] [address] Sample Type Arterial Draw Normal [facility] Comment on above: Performed By: #### 4 [id number] ####[facility] [address] [place] [id number] CBC w/ Auto Diffon Erythrocyte distribution width (RBC) [Ratio] 14.8 % High 10.9-14.2 [facility] Comment on above: Performed By: #### 1 [id number], 0679924, 4983989, 7179931, 84706868 ####[place] [address] [place] 3874457 Hematocrit (Bld) [Volume fraction] 37.3 % Low 37.7-49.0 [facility] [place] Comment on above: Performed By: #### 1 4074655, 4945136, 0149373, 6957542, 71124965 ####[facility] [address] [place] 3874457 Hemoglobin (Bld) [Mass/Vol] 12.3 g/dL Low 13.5-17.5 [facility] Comment on above: Performed By: #### 1 1188332, 7822101, 9990281, 6104162, 09802130 ####[facility] [address] [place] 3874457 MCH (RBC) [Entitic mass] 28.3 pg Normal 27.0-34.0 [facility] Comment on above: Performed By: #### 1 7491632, 3356794, 1713911, 4406720, 87232700 ####[facility] [address] [place] [address] MCHC (RBC) [Mass/Vol] 33.0 g/dL Normal 31.4-36.0 [facility] Comment on above: Performed By: #### 1 5730322, 6568556, 6581320, 7402363, 90277947 ####[address] [address] MCV (RBC) [Entitic vol] 85.9 fL Normal 80.0-100.0 [facility] Comment on above: Performed By: #### 1 3991960, 9882716, 7195092, 4698261, 78970567 ####[address] [address] Platelet mean volume (Bld) [Entitic vol] 10.4 fL Normal 6.4-10.8 [facility] Comment on above: Performed By: #### 1 4845817, 7827118, 8242029, 6694295, 49694486 ####[address] [address] Platelets (Bld) [#/Vol] 189.0 E9/L Normal 150.0-500.0 [facility] Comment on above: Performed By: #### 1 4905512, 6199376, 8101591, 0151199, 22545965 ####[address] [address] RBC (Bld) [#/Vol] 4.3 E12/L Normal 4.3-5.9 [facility] Comment on above: Performed By: #### 1 3506679, 7897556, 1533297, 4629353, 89697620 ####[address] [address] WBC corrected for nucl RBC Auto (Bld) [#/Vol] 7.1 E9/L Normal 4.0-11.0 [facility] Comment on above: Performed By: #### 1 4397403, 4188140, 2653322, 9702799, 15564118 ####[address] [address] CHEMISTRYOrdered By: SYSTEM SYSTEM on 11-28-2022 Troponin I.cardiac [Mass/Vol] 32.60 pg/mL Normal 15.90 - 38.40 pg/mL [facility] Troponin I.cardiac [Mass/Vol] 26.90 pg/mL Normal 15.90 - 38.40 pg/mL [facility] Remisol Consent for Treatmenton Consent for Treatment [id number] .00CD:127 Normal [facility] ED Note-Physicianon 11-29-19 ED Note-Physician Normal [facility] [place] Comment on above: Result Comment: Elec tronically [...] - 2.2 mmol/L FT Resp Auto SS collision mechanic+ Art 139.0 mmol/L Normal 135.0 - 145.0 mmol/L FT Resp Auto SS Drawn by nmb Invalid Interpretation Code FT Resp Auto SS FCOHb Art 1.5 % Normal 1.5 - 4.9 % FT Resp Auto SS FIO2 BG 28 Invalid Interpretation Code FT Resp Auto SS Flow 2 Invalid Interpretation Code [facility] Resp Auto SS FMetHb Art 0.3 % Normal 0.0 - 1.9 % FT Resp Auto SS FO2Hb Art 93.7 % Normal 93.0 - 100.0 % FT Resp Auto SS HCO3 (Bld) [Moles/Vol] 26.9 mmol/L High 22.0 - 26.0 mmol/L [facility] Resp Auto SS Hemoglobin (Bld) [Mass/Vol] 11.9 g/dL Low 12.0 - 17.0 gm/dL [facility] Resp Auto SS P CO2 Arterial 47.6 mm[Hg] High 35.0 - 45.0 mmHg [facility] Resp Auto SS P O2 Arterial 74.3 mm[Hg] Low 80.0 - 100.0 mmHg [facility] Resp Auto SS pH Arterial 7.387 Normal 7.350 - 7.450 [facility] Resp Auto SS Sample Site R Radial (11/28/22 6:55 PM) Normal [facility] Resp Auto SS Sample Type Arterial Draw (11/28/22 6:55 PM) Normal [facility] Resp Auto SS HEMATOLOGYOrdered By: SYSTEM SYSTEM [...] [facility] HemeAutoSS Pre-Arrival Noteon Pre-Arrival Note Normal [facility] Troponin 0 Hr.on 11-28-2022 Troponin I.cardiac [Mass/Vol] 21.80 pg/mL Normal 15.90-38.40 [facility] [place] Comment on above: Result Comment: The 95% CI (Confidence Interval) PPV (Positive Predictive Value) for myocardial infarction in females is 38 pg/mL, in males 51 pg/mL. The results should be used in conjunction with clinical conditions of myocardial infarction.(Access High Sensitivity Troponin I Instructions For Use, Claudia Bellingham, December 2017) Performed By: #### 1 6823030, 0658331, 2618456, 7920917, 12527202 ####[facility] [address] [place] [address] Troponin 3 Hr.on 11-28-2022 Troponin I.cardiac [Mass/Vol] 26.90 pg/mL Normal 15.90-38.40 [facility] Comment on above: Result Comment: The 95% CI (Confidence Interval) PPV (Positive Predictive Value) for myocardial infarction in females is 38 pg/mL, in males 51 pg/mL. The results should be used in conjunction with clinical conditions of myocardial infarction.(Access High Sensitivity Troponin I Instructions For Use, Claudia Bellingham, December 2017) Performed By: #### 1 [id number] ####[facility] [address] [place] [address] UA With Cult Reflexon 2022 Crystals LM Ql (Urine sed) Present Normal [facility] Comment on above: Performed By: #### 1 [id number] ####[address] [address] Epithelial cells.squamous LM.HPF (Urine sed) [#/Area] 0-2 Normal 0-2 [facility] Comment on above: Performed By: #### 1 4530263 ####[address] [address] [place].plasma/[place].R BC (Bld) [Mass ratio] 0-3 Normal 0-3 [facility] Comment on above: Performed By: #### 1 0882446 ####[facility] [address] [place] [address] Mucus Ql (Urine sed) TRACE Normal [facility] Comment on above: Performed By: #### 1 8955318 ####[address] [address] WBC LM.HPF (Urine sed) [#/Area] 0-5 Normal 0-5 [facility] Comment on above: Performed By: #### 1 3068668 ####[address] [address] Bilirubin Ql (U) Negative Normal Negative [facility] Comment on above: Performed By: #### 1 8804793 ####[facility] [address] [place] [address] Clarity (U) CLEAR Normal Clear [facility] Comment on above: Performed By: #### 1 7728458 ####[facility] [address] [place] [address] Color (U) YELLOW Normal Yellow [facility] Comment on above: Performed By: #### 1 3881998 ####[facility] [address] [place] [address] Glucose Test strip (U) [Mass/Vol] Negative Normal Negative [facility] Comment on above: Performed By: #### 1 3517861 ####[facility] [address] [place] [address] Hemoglobin Ql (U) Negative Normal Negative [facility] Comment on above: Performed By: #### 1 6226824 ####[address] [address] Ketones (U) [Mass/Vol] Negative Normal Negative [facility] Comment on above: Performed By: #### 1 2076091 ####[address] [address] Nitrite Ql (U) Negative Normal Negative [facility] Comment on above: Performed By: #### 1 2574749 ####[facility] [address] [place] [address] pH (U) 6.0 [pH] Invalid Interpretation Code 5.0-9.0 [facility] Comment on above: Performed By: #### 1 7228557 ####[facility] [address] [place] [address] Protein (U) [Mass/Vol] 2+ Abnormal Negative [facility] Comment on above: Performed By: #### 1 2864428 ####[place] [address] [place] [address] Specific gravity (U) [Rel density] 1.025 Invalid Interpretation Code 1.005-1.030 [facility] Comment on above: Performed By: #### 1 6138103 ####[address] [address] Type of Urine collection method Clean Catch Normal [facility] Comment on above: Performed By: #### 1 7415187 ####[facility] [address] [place] [address] Urobilinogen Qn (U) 0.2 {Lei'U}/dL Normal 0.0-1.0 [facility] Comment on above: Performed By: #### 1 5385673 ####[facility] [address] [place] [address] WBC Auto Ql (U) Negative Normal Negative [facility] Comment on above: Performed By: #### 1 5341165 ####[facility] [address] [place] [address] URINALYSISOrdered By: Emily Suero on 11-28-2022 Bilirubin [...] PM) Normal Negative [facility] UA Auto SS [place].plasma/[place].R BC (Bld) [Mass ratio] 0-3 /HPF Normal [...] [facility] UA Auto SS Urobilinogen Qn (U) 0.6586122 {Lei'U}/dL Normal 0.0 - 1.0 EU/dL [facility] UA Auto SS WBC Auto Ql (U) Negative (11/28/22 5:55 PM) Normal Negative [facility] UA Auto SS WBC LM.HPF (Urine sed) [#/Area] 0-5 /HPF Normal 0-5/HPF [facility] UA Auto SS XR Chest Single Viewon 11-28 XR Chest Single View Normal [facility] eGFRon 11-28-2022 GFR/1.73 sq M.predicted among non-blacks MDRD (S/P/Bld) [Vol rate/Area] 77 mL/min/1.73 m2 Normal >=59 [facility] Comment on above: Order Comment: Order added by Discern Expert. Result Comment: Federal Mediation Commissioner earnest kidney disease could be indicated at eGFR's of less than 60 mL/min/1.73m2. Kidney failure is indicated at less than 15 mL/min/1.73m2. Performed By: #### 1 2466393, 5482691, 2860017, 6834513, 36272368 ####[facility] [address] [place] 3[address]457 CHEMISTRYOrdered By: SYSTEM SYSTEM on 11-26-2022 Albumin [...] 2.07 m[IU]/L Normal 0.34 - 5.60 mcIU/mL [facility] Remisol Urea nitrogen [Mass/Vol] 18 mg/dL Normal 5 - 21 mg/dL [facility] Remisol Urea nitrogen/Creatinine [Mass ratio] 20 mg/mg Normal 10 - 20 [facility] Remisol CMPon 11-26-2022 Albumin [Mass/Vol] 3.7 g/dL Normal 3.3-5.0 [facility] Comment on above: Performed By: #### 2 209030, 5065330, 49769313, 7894557 ####[facility] [address] [place] [address] Albumin/Globulin (S) [Mass conc ratio] 1.2 Normal 1.1-2.2 [facility] Comment on above: Performed By: #### 2 577490, 1299013, 23974511, 5324400 ####[facility] [address] [place] [address] ALP [Catalytic activity/Vol] 38 Int._Unit/L Normal 21-98 [facility] Comment on above: Performed By: #### 2 850904, 3691682, 73304234, 1900082 ####[facility] [address] [place] [address] ALT No additional P-5'-P [Catalytic activity/Vol] 11 Int._Unit/L Normal 6-46 [facility] Comment on above: Performed By: #### 2 903711, 9231126, 09071016, 8275129 ####[facility] [address] [place] [address] Anion gap [Moles/Vol] 14 mmol/L Normal 6-16 [facility] Comment on above: Performed By: #### 2 629791, 0703266, 00039397, 9695225 ####[facility] [address] [place] [address] AST [Catalytic activity/Vol] 15 Int._Unit/L Normal 5-43 [facility] Comment on above: Performed By: #### 2 785868, 1975355, 95211458, 5661296 ####[facility] [address] [place] [address] Bilirubin [Mass/Vol] 1.0 mg/dL Normal 0.0-1.1 [facility] Comment on above: Performed By: #### 2 642845, 3991134, 36550835, 6393539 ####[facility] [address] [place] [address] Calcium [Mass/Vol] 9.2 mg/dL Normal 8.9-11.1 [facility] Comment on above: Performed By: #### 2 858602, 5229741, 57536154, 6009480 ####[facility] [address] [place] [address] Chloride [Moles/Vol] 107 mmol/L Normal 101-111 [facility] Comment on above: Performed By: #### 2 023284, 5033285, 99465860, 4593912 ####[facility] [address] [place] [address] CO2 [Moles/Vol] 28 mmol/L Normal 21-31 [facility] Comment on above: Performed By: #### 2 591583, 7374577, 95688969, 9036336 ####[facility] [address] [place] [address] Creatinine [Mass/Vol] 0.9 mg/dL Normal 0.5-1.3 [facility] Comment on above: Performed By: #### 2 405884, 0110181, 53370970, 0334091 ####[facility] [address] [facility] [place] [address] Globulin (S) [Mass/Vol] 3.2 g/dL Normal 1.4-4.0 F [facility] Comment on above: Performed By: #### 2 550144, 1360577, 06760123, 3223145 ####[facility] [address] [place] [address] Glucose [Mass/Vol] 95 mg/dL Normal 55-199 [facility] Comment on above: Result Comment: If t his glucose result represents a fasting glucose, interpretation should refer to the following reference range: 55-99 mg/dL Performed By: #### 2 505482, 7749781, 76938423, 6803222 ####[facility] [address] [place] [address] Potassium [Moles/Vol] 4.2 mmol/L Normal 3.5-5.3 [facility] Comment on above: Performed By: #### 2 100477, 9614355, 74491586, 1248881 ####[facility] [address] [place] [address] Protein [Mass/Vol] 6.9 g/dL Normal 6.0-7.8 [facility] Comment on above: Performed By: #### 2 098760, 6141380, 53971956, 7635902 ####[facility] [address] [place] [address] Sodium [Moles/Vol] 145 mmol/L Normal 135-145 [facility] Comment on above: Performed By: #### 2 142570, 8358744, 47351695, 3047086 ####[facility] [address] [place] [address] Urea nitrogen [Mass/Vol] 18 mg/dL Normal 5-21 [facility] Comment on above: Performed By: #### 2 502596, 7129821, 61575707, 1010151 ####[facility] [address] [place] [address] Urea nitrogen/Creatinine [Mass ratio] 20 No Units Normal 10-20 [facility] Comment on above: Performed By: #### 2 617400, 0444792, 56525041, 8147199 ####[facility] [address] [place] [address] Consent for Treatmenton 0 Consent for Treatment [id number] .00CD:127 Normal [facility] Lipid Panelon 11-26-2022 Cholesterol [Mass/Vol] 112 mg/dL Low 120-200 [facility] Comment on above: Performed By: #### 2 000259, 9604257, 69300685, 5650565 ####[facility] [address] [place] [address] Cholesterol in HDL [Mass/Vol] 49 mg/dL Invalid Interpretation Code [facility] Comment on above: Result Comment: HDL > or equal to 60 mg/dL: Low cardiovascular riskHDL < 40 mg/dL : High cardiovascular risk Performed By: #### 2 447750, 3223669, 39439845, 2932627 ####[facility] [address] [place] [address] Cholesterol in LDL [Mass/Vol] 42 mg/dL Normal <=129 [facility] Comment on above: Performed By: #### 2 052108, 5133205, 52622941, 5639949 ####[facility] [address] [place] [address] Cholesterol in VLDL [Mass/Vol] 14 mg/dL Normal 7-40 [facility] Comment on above: Performed By: #### 2 822686, 4580550, 56818240, 4787217 ####[facility] [address] [place] [address] Triglyceride [Mass/Vol] 69 mg/dL Normal <=149 [facility] Comment on above: Performed By: #### 2 001994, 0485925, 38593939, 0762770 ####[facility] [address] [place] [address] Physician Orderon 11-26-2022 Physician Order [id number]# 1.00CD:127 Normal [facility] TSHon 11-26-2022 TSH Qn 2.07 m[IU]/L Normal 0.34-5.60 [facility] Comment on above: Performed By: #### 2 336679, 3752224, 22387300, 6927700 ####[facility] [address] [place] [address] eGFRon 11-26-2022 GFR/1.73 sq M.predicted among non-blacks MDRD (S/P/Bld) [Vol rate/Area] 87 mL/min/1.73 m2 Normal >=59 [facility] Comment on above: Order Comment: Order added by Discern Expert. Result Comment: Federal Mediation Commissioner earnest kidney disease could be indicated at eGFR's of less than 60 mL/min/1.73m2. Kidney failure is indicated at less than 15 mL/min/1.73m2. Performed By: #### 2 536656, 9735406, 38824138, 6866926 ####[facility] [address] [place] [address] Discharge Instructionson Discharge Instructions [id number] .00CD:127 Normal [facility] Transfer Documentson 023 Transfer Documents [id number] .00CD:127 Normal [facility] Capillary Glucose POCon Glucose [Mass/Vol] 166 mg/dL High 55-99 [facility] Comment on above: Result Comment: Gareth guerrero RN/ Performed By: #### 2 [id number] ####[facility] [address] [place] [address] Glucose [Mass/Vol] 119 mg/dL High 55-99 [facility] Comment on above: Result Comment: Repe at Test Performed By: #### 2 81694579 ####[facility] [address] [place] [address] Discharge Note-Nursingon Discharge Note-Nursing Normal [facility] DlxL2ekq 09-28-2022 HbA1c (Bld) [Mass fraction] 6.4 % High <=5.9 [facility] Comment on above: Order Comment: IF UN ABLE TO ADD TO ED LABS Performed By: #### 2 882622, [id number] ####[facility] [address] [place] [address] Inpatient Clinical Summaryon 09-28-2022 Inpatient Clinical Summary Normal [facility] Inpatient Patient Summaryon 09-28-2022 Inpatient Patient Summary Normal [facility] Inpatient Patient Summary Normal [facility] Interdisciplinary Note - Santosh e Manageron 09-28-2022 Interdisciplinary Note - Education Coordinator Normal [facility] Comment on above: Result Comment: Elec tronically Signed By: Jose HAYDEN, Norma\.br\Date and Time Signed: 09/28/22 15:54 EDT Monitor Recordon 09-28-2022 Monitor Record [id number]# 1.00CD:127 Normal [facility] Capillary Glucose POCon Glucose [Mass/Vol] 192 mg/dL High 55-99 [facility] Comment on above: Result Comment: Gareth GARDINER Performed By: #### 2 [id number] ####[facility] [address] [place] [address] Glucose [Mass/Vol] 130 mg/dL High 55-99 [facility] Comment on above: Result Comment: No C overage Given Performed By: #### 2 [id number] ####[facility] [address] [place] [address] Glucose [Mass/Vol] 202 mg/dL High 55-99 [facility] Comment on above: Result Comment: Gareth GARDINER Performed By: #### 2 07486174 ####[facility] [facility] [place] [address] [place] [address] Glucose [Mass/Vol] 89 mg/dL Normal 55-99 [facility] [place] Comment on above: Result Comment: Gareth GARDINER Performed By: #### 2 [id number] ####[facility] [address] [place] [address] Insurance Correspondence Off iceon 09-27-2022 Insurance Correspondence Office [id number]# 1.00CD:127 Normal [facility] Interdisciplinary Note - Santosh e Manageron 09-27-2022 Interdisciplinary Note - Education Coordinator [facility] Comment on above: Result Comment: Elec tronically Signed By: Natalie Grant\Date and Time Signed: 09/27/22 14:56 EDT Interdisciplinary Note - PTo n 09-27-2022 Interdisciplinary Note - PT Pt is safe and indep w/bed mobility, transfers and gait w/FWW. Pt uses FWW at home; he is at his baseline. NO PT needs at this time. No needs anticipated upon d/c home. AM-PAC [facility] L[facility] 09-27-2022 Anion gap [Moles/Vol] 9 mmol/L Normal 6-16 [facility] Comment on above: Performed By: #### 2 [id number], [id number] ####[facility] [address] [place] [address] Chloride [Moles/Vol] 105 mmol/L Normal 101-111 [facility] Comment on above: Performed By: #### 2 486135, [id number] ####[facility] [address] [place] [address] CO2 [Moles/Vol] 26 mmol/L Normal 21-31 [facility] Comment on above: Performed By: #### 2 085626, [id number] ####[facility] [address] [place] [address] Potassium [Moles/Vol] 4.2 mmol/L Normal 3.5-5.3 [facility] Comment on above: Performed By: #### 2 055964, [id number] ####[facility] [address] [place] [address] Sodium [Moles/Vol] 136 mmol/L Normal 135-145 [facility] Comment on above: Performed By: #### 2 378312, [id number] ####[facility] [address] [place] [address] Monitor Recordon 09-27-2022 Monitor Record [id number]# 1.00CD:127 Normal [facility] Monitor Record [id number]# 1.00CD:127 Normal [facility] Progress Note-Nurseon 2022 Progress Note-Nurse Normal [facility] Progress Note-Physicianon Progress Note-Physician Normal F [facility] Comment on above: Result Comment: Elec tronically Signed By: Adeline COLEMAN\.br\Date and Time Signed: 09/27/22 15:34 EDT\.br\Electronically Co-Signed By: Adeline COLEMAN\.br\Date and Time Co-Signed: 09/27/22 15:37 EDT\.br\Electronically Co-Signed By: Ganesh Minaya MD\.br\Date and Time Co-Signed: 09/27/22 18:58 EDT Auto Diffon 09-26-2022 Basophils/100 WBC (Bld) 0.5 % Normal 0.0-2.0 [facility] Comment on above: Order Comment: Order Added by Discern Expert. Performed By: #### 1 [id number], 4999532, 7170858, 7631146 ####[facility] [address] [place] [address] Basophils/Leukocytes Auto (Bld) [Pure # fraction] 0.0 E9/L Normal 0.0-0.2 [facility] Comment on above: Order Comment: Order Added by Discern Expert. Performed By: #### 1 9967380, 3862146, 6991946, 7053581 ####[facility] [address] [place] [address] Eosinophils/100 WBC (Bld) 3.3 % Normal 0.0-8.0 [facility] Comment on above: Order Comment: Order Added by Discern Expert. Performed By: #### 1 8499851, 7963493, 3605866, 2710707 ####[facility] [address] [place] [address] Eosinophils/Leukocytes Auto (Bld) [Pure # fraction] 0.3 E9/L Normal 0.0-0.5 [facility] Comment on above: Order Comment: Order Added by Discern Expert. Performed By: #### 1 4988564, 6685312, 5713714, 7646307 ####[address] [place] [address] Lymphocytes/100 WBC (Bld) 9.5 % Low 14.0-50.0 [facility] Comment on above: Order Comment: Order Added by Discern Expert. Performed By: #### 1 5195478, 9647582, 6192853, 3710594 ####[address] [place] [address] Lymphocytes/Leukocytes Auto (Bld) [Pure # fraction] 0.8 E9/L Low 1.0-4.0 [facility] Comment on above: Order Comment: Order Added by Bethany Expert. Performed By: #### 1 5607885, 7303333, 3641350, 9731980 ####[address] [address] Monocytes/100 WBC (Bld) 7.2 % Normal 4.0-14.0 [facility] Comment on above: Order Comment: Order Added by Bethany Expert. Performed By: #### 1 6983016, 1554735, 2286412, 2095698 ####[address] [address] Monocytes/Leukocytes Auto (Bld) [Pure # fraction] 0.6 E9/L Normal 0.2-1.0 [facility] Comment on above: Order Comment: Order Added by Discern Expert. Performed By: #### 1 4117095, 1710058, 7887756, 5732642 ####[address] [address] Neutrophils/100 WBC (Bld) 79.5 % High 36.0-75.0 [facility] Comment on above: Order Comment: Order Added by Bethany Expert. Performed By: #### 1 3592500, 5820630, 6752875, 8836507 ####[address] [place] [address] Neutrophils/Leukocytes Auto (Bld) [Pure # fraction] 6.7 E9/L Normal 2.0-7.5 [facility] Comment on above: Order Comment: Order Added by Discern Expert. Performed By: #### 1 7807147, 8882355, 3508279, 6272822 ####[facility] [address] [place] [address] BMPon 09-26-2022 Creatinine [Mass/Vol] 1.0 mg/dL Normal 0.5-1.3 [facility] Comment on above: Performed By: #### 1 3319683, 7366054, 3940368, 8114452 ####[facility] [address] [place] [address] Urea nitrogen [Mass/Vol] 25 mg/dL High 5-21 [facility] Comment on above: Performed By: #### 1 0043868, 2573798, 8242135, 9367023 ####[facility] [address] [place] [address] Urea nitrogen/Creatinine [Mass ratio] 25 No Units High 10-20 [facility] Comment on above: Performed By: #### 1 4530059, 6931539, 4129371, 3479029 ####[facility] [address] [place] [address] Anion gap [Moles/Vol] 10 mmol/L Normal 6-16 [facility] Comment on above: Performed By: #### 1 1839287, 0688640, 8860656, 2281830 ####[facility] [address] [place] [address] Calcium [Mass/Vol] 8.9 mg/dL Normal 8.9-11.1 [facility] Comment on above: Performed By: #### 1 1685790, 9190675, 0734330, 4227235 ####[facility] [address] [place] [address] Chloride [Moles/Vol] 101 mmol/L Normal 101-111 [facility] Comment on above: Performed By: #### 1 9708499, 0237695, 8303437, 1718760 ####[facility] [address] [place] [address] CO2 [Moles/Vol] 26 mmol/L Normal 21-31 [facility] Comment on above: Performed By: #### 1 8031074, 0548181, 5068212, 2373209 ####[facility] [address] [place] [address] Glucose [Mass/Vol] 112 mg/dL Normal 55-199 [facility] Comment on above: Result Comment: If t his glucose result represents a fasting glucose, interpretation should refer to the following reference range: 55-99 mg/dL Performed By: #### 1 3526384, 5040181, 6629423, 2308717 ####[facility] [address] [place] [address] Potassium [Moles/Vol] 4.1 mmol/L Normal 3.5-5.3 [facility] Comment on above: Performed By: #### 1 1859936, 3587322, 1550405, 5473917 ####[facility] [address] [place] [address] Sodium [Moles/Vol] 133 mmol/L Low 135-145 [facility] Comment on above: Performed By: #### 1 9000589, 6757896, 3931655, 9446045 ####[address] [place] [address] CBC w/ Auto Diffon 3 Erythrocyte distribution width (RBC) [Ratio] 14.6 % High 10.9-14.2 [facility] Comment on above: Performed By: #### 1 2993500, 3515768, 5374390, 3772228 ####[address] [place] [address] Hematocrit (Bld) [Volume fraction] 37.6 % Low 37.7-49.0 [facility] Comment on above: Performed By: #### 1 2048577, 4597408, 5436494, 3345312 ####[facility] [address] [place] [address] Hemoglobin (Bld) [Mass/Vol] 12.5 g/dL Low 13.5-17.5 [facility] Comment on above: Performed By: #### 1 6352047, 8930787, 8608707, 5980424 ####[facility] [address] [place] [address] MCH (RBC) [Entitic mass] 28.5 pg Normal 27.0-34.0 [facility] Comment on above: Performed By: #### 1 2643917, 0410610, 6306178, 9385959 ####[address] [address] MCHC (RBC) [Mass/Vol] 33.2 g/dL Normal 31.4-36.0 [facility] Comment on above: Performed By: #### 1 5392661, 1000266, 6490847, 4428573 ####[address] [address] MCV (RBC) [Entitic vol] 85.8 fL Normal 80.0-100.0 F [facility] Comment on above: Performed By: #### 1 6212337, 3626733, 8720492, 0510155 ####[address] [address] Platelet mean volume (Bld) [Entitic vol] 10.3 fL Normal 6.4-10.8 [facility] Comment on above: Performed By: #### 1 0440497, 4110930, 1230332, 7272072 ####[address] [place] [address] Platelets (Bld) [#/Vol] 164.0 E9/L Normal 150.0-500.0 [facility] Comment on above: Performed By: #### 1 9884214, 0664483, 9713919, 1946462 ####[address] [address] RBC (Bld) [#/Vol] 4.4 E12/L Normal 4.3-5.9 [facility] Comment on above: Performed By: #### 1 9075402, 7993126, 6695652, 7552218 ####[facility] [address] [place] [address] WBC corrected for nucl RBC Auto (Bld) [#/Vol] 8.4 E9/L Normal 4.0-11.0 [facility] Comment on above: Performed By: #### 1 8073122, 2617803, 8893562, 5037091 ####[facility] [address] [place] [address] Capillary Glucose POCon Glucose [Mass/Vol] 161 mg/dL High 55-99 [facility] Comment on above: Result Comment: Gareth guerrero RN/MD Performed By: #### 2 [id number] ####[facility] [address] [place] [address] Consent for Treatmenton Consent for Treatment [id number]#1 .00CD:127 Normal [facility] ED Clinical Summaryon 2022 ED Clinical Summary Normal [facility] ED Note-Physicianon 09-27-19 ED Note-Physician Normal [facility] Comment on above: Result Comment: Elec tronically Signed By: Shane Pan DO\.candice\Date and Time Signed: 09/26/22 16:06 EDT ED Patient Education Noteon 09-26-2022 ED Patient Education Note Normal [facility] ED Patient Summaryon 023 ED Patient Summary Normal [facility] EMS Documentationon 09-27-19 EMS Documentation Normal [facility] EMS Documentation Normal [facility] Pre-Arrival Noteon Pre-Arrival Note Normal [facility] Progress Noteson 09-26-2022 Library Manager Authentication Interface Message Text EMERGENCY TRIAGE, TREAT AND TRANSPORT (ET3) DOCUMENTATION OF TELEHEALTH VISIT Date / Time: 09/26/2022929 Name: Clyde Humphrey : 1945 SSN: [id number] EMS Agency: [facility] [x] Verbal consent obtained [] Implied [...] Completed by: Coby Lugo MD Normal [employer] UA With Cult Reflexon 2022 Bilirubin Ql (U) Negative Normal Negative [facility] Comment on above: Order Comment: can s traight cath if needed. Performed By: #### 1 [id number] ####[facility] [address] [place] [address] Clarity (U) CLEAR Normal Clear [facility] Comment on above: Order Comment: can s traight cath if needed. Performed By: #### 1 6285201 ####[facility] [address] [place] [address] Color (U) YELLOW Normal Yellow [facility] Comment on above: Order Comment: can s traight cath if needed. Performed By: #### 1 4201273 ####[facility] [address] [place] [address] Epithelial cells.squamous LM.HPF (Urine sed) [#/Area] 0-2 Normal 0-2 [facility] Comment on above: Order Comment: can s traight cath if needed. Performed By: #### 1 7989653 ####[facility] [address] [place] [address] Glucose Test strip (U) [Mass/Vol] Negative Normal Negative [facility] Comment on above: Order Comment: can s traight cath if needed. Performed By: #### 1 6181330 ####[facility] [address] [place] [address] Hemoglobin Ql (U) Negative Normal Negative [facility] Comment on above: Order Comment: can s traight cath if needed. Performed By: #### 1 7987663 ####[address] [address] Ketones (U) [Mass/Vol] Negative Normal Negative [facility] Comment on above: Order Comment: can s traight cath if needed. Performed By: #### 1 1485789 ####[address] [address] [place].plasma/[place].R BC (Bld) [Mass ratio] 0-3 Normal 0-3 [facility] Comment on above: Order Comment: can s traight cath if needed. Performed By: #### 1 1287380 ####[facility] [address] [place] [address] Nitrite Ql (U) Negative Normal Negative [facility] Comment on above: Order Comment: can s traight cath if needed. Performed By: #### 1 1348646 ####[facility] [address] [place] [address] pH (U) 5.5 [pH] Invalid Interpretation Code 5.0-9.0 [facility] Comment on above: Order Comment: can s traight cath if needed. Performed By: #### 1 3883149 ####[facility] [address] [place] [address] Protein (U) [Mass/Vol] Negative Normal Negative [facility] Comment on above: Order Comment: can s traight cath if needed. Performed By: #### 1 4541673 ####[facility] [address] [place] [address] Specific gravity (U) [Rel density] 1.025 Invalid Interpretation Code 1.005-1.030 [facility] Comment on above: Order Comment: can s traight cath if needed. Performed By: #### 1 4857321 ####[facility] [address] [place] [address] Type of Urine collection method Clean Catch Normal [facility] Comment on above: Order Comment: can s traight cath if needed. Performed By: #### 1 2933980 ####[address] [address] Urobilinogen Qn (U) 1.0 {Lei'U}/dL Normal 0.0-1.0 [facility] Comment on above: Order Comment: can s traight cath if needed. Performed By: #### 1 3468040 ####[place] [address] WBC Auto Ql (U) Negative Normal Negative [facility] Comment on above: Order Comment: can s traight cath if needed. Performed By: #### 1 9470613 ####[place] [address] WBC LM.HPF (Urine sed) [#/Area] 0-5 Normal 0-5 [facility] Comment on above: Order Comment: can s traight cath if needed. Performed By: #### 1 5253823 ####[address] [address] XR Chest Single Viewon 09-26 XR Chest Single View Normal [facility] eGFRon 09-26-2022 GFR/1.73 sq M.predicted among non-blacks MDRD (S/P/Bld) [Vol rate/Area] 77 mL/min/1.73 m2 Normal >=59 [facility] Comment on above: Order Comment: Order added by Discern Expert. Result Comment: Federal Mediation Commissioner earnest kidney disease could be indicated at eGFR's of less than 60 mL/min/1.73m2. Kidney failure is indicated at less than 15 mL/min/1.73m2. Performed By: #### 1 1330881, 0860131, 3950723, 0406090 ####[facility] [address] [place] [place] [address] Progress Noteson 09-07-2022 Library Manager Authentication Interface Message Text EMERGENCY TRIAGE, TREAT AND TRANSPORT (ET3) DOCUMENTATION OF TELEHEALTH VISIT Date / Time: 09/06/20222146 Name: Clyde Humphrey : 1945 SSN: [id number] EMS Agency: [facility] [x] Verbal consent obtained [] Implied [...] Completed by: Marcelino Echavarria MD Normal [employer] Q - CULTURE,URINE,ROUTINEon 06-23-2021 CULTURE, URINE, ROUTINE SEE NOTE Normal N [facility] [employer]enger Agent Comment on above: Order Comment: [facility] performed at: [employer], Write.my [facility], [address] [facility], [address] [place] [address], [id number], Tram Inspector: Archie Sinha MD [facility] Collection Date/Time: [id number] [facility] Results Received Date/Time: [id number] [facility] Reported Date/Time: Result Comment: CULT URE, URINE, ROUTINE Micro Number: [id number] Test Status: Final Specimen Source: Urine Specimen Quality: Adequate Result: Mixed genital alvin isolated. These superficial bacteria are not indicative of a urinary tract infection. No further organism identification is warranted on this specimen. If clinically indicated, recollect clean-catch, mid-stream urine and transfer immediately to Urine Culture Transport Tube. Performed By: #### 6 304R #### [facility] [address] [place] [address] Q - CULTURE,URINE,ROUTINEon 05-05-2021 CULTURE, URINE, ROUTINE SEE NOTE Normal N [facility] [employer]enger Agent Comment on above: Order Comment: [facility] performed at: [place] [facility], [address] [facility], [address] [place] [address], [id number], Tram Inspector: Archie Sinha MD [facility] Collection Date/Time: [id number] [facility] Results Received Date/Time: [id number] [facility] Reported Date/Time: [id number] Result Comment: CULT URE, URINE, ROUTINE Micro Number: [id number] Test Status: Final Specimen Source: Urine Specimen Quality: Adequate Result: Growth of mixed alvin was isolated, suggesting probable contamination. No further testing will be performed. If clinically indicated, recollection using a method to minimize contamination, with prompt transfer to Urine Culture Transport Tube, is recommended. Performed By: #### 6 304R #### [facility] [address] [place] [address] Vital Signs Date Time Vital Sign Value Performing Clinician Facility 01-24-2023 10:00-0400 Hourly Rounding Mbanefo OJUKWU [facility] 01-24-2023 10:00-0400 Promise to Return Mbanefo OJUKWU [facility] 01-24-2023 09:00-0400 Hourly Rounding Mbanefo OJUKWU [facility] 01-24-2023 09:00-0400 Promise to Return Mbanefo OJUKWU [facility] 01-24-2023 08:29-0400 Diastolic blood pressure 73 mm[Hg] Mbanefo OJUKWU [facility] 01-24-2023 08:29-0400 Systolic blood pressure 157 mm[Hg] Mbanefo OJUKWU [facility] 01-24-2023 08:27-0400 Blood Pressure Location Mbanefo OJUKWU [facility] 01-24-2023 08:27-0400 Body temperature 97.7 [degF] Mbanefo OJUKWU [facility] 01-24-2023 08:27-0400 Diastolic blood pressure 73 mm[Hg] Mbanefo OJUKWU [facility] 01-24-2023 08:27-0400 Heart rate 82 /min Mbanefo OJUKWU [facility] 01-24-2023 08:27-0400 Respiratory rate 16 /min Mbanefo OJUKWU [facility] 01-24-2023 08:27-0400 Systolic blood pressure 157 mm[Hg] Mbanefo OJUKWU [facility] 01-24-2023 08:00-0400 Hourly Rounding Mbanefo OJUKWU [facility] 01-24-2023 08:00-0400 Promise to Return Mbanefo OJUKWU [facility] 01-24-2023 00:05-0400 Blood Pressure Location Mbanefo OJUKWU [facility] 01-24-2023 00:05-0400 Body temperature 97.7 [degF] Mbanefo OJUKWU [facility] 01-24-2023 00:05-0400 Diastolic blood pressure 76 mm[Hg] Mbanefo OJUKWU [facility] 01-24-2023 00:05-0400 Heart rate 83 /min Mbanefo OJUKWU [facility] 01-24-2023 00:05-0400 Mean blood pressure 99 mm[Hg] Mbanefo OJUKWU [facility] 01-24-2023 00:05-0400 SaO2% (BldA) [Mass fraction] 97 % Mbanefo OJUKWU [facility] 01-24-2023 00:05-0400 Systolic blood pressure 144 mm[Hg] Mbanefo OJUKWU [facility] 01-23-2023 19:36-0400 Heart rate 81 /min Mbanefo OJUKWU [facility] 01-23-2023 19:36-0400 SaO2% (BldA) [Mass fraction] 96 % Mbanefo OJUKWU [facility] 01-23-2023 19:36-0400 Body temperature 97.34 [degF] Mbanefo OJUKWU [facility] 01-23-2023 19:34-0400 Mean blood pressure 83 mm[Hg] Mbanefo OJUKWU [facility] 01-23-2023 13:00-0400 Body temperature 98.06 [degF] Mbanefo OJUKWU [facility] 01-23-2023 06:55-0400 Blood Pressure Location Mbanefo OJUKWU [facility] 01-23-2023 06:55-0400 Mean blood pressure 89 mm[Hg] [facility] [facility]23 06:55-0400 Respiratory rate 16 /min Mbanefo OJUKWU [facility] 01-23-2023 06:55-0400 SaO2% (BldA) [Mass fraction] 93 % Mbanefo OJUKWU [facility] 01-22-2023 23:00-0400 Body temperature 97.88 [degF] Mbanefo OJUKWU [facility] 01-22-2023 23:00-0400 Mean blood pressure 82 mm[Hg] Mbanefo OJUKWU [facility] 01-22-2023 23:00-0400 Respiratory rate 18 /min Mbanefo OJUKWU [facility] 09-01-2023 18:37-0400 Body temperature 97.52 [degF] Mbanefo OJUKWU [facility] 01-22-2023 18:36-0400 Mean blood pressure 81 mm[Hg] Mbanefo OJUKWU [facility] 01-22-2023 16:09-0400 Mean blood pressure 81 mm[Hg] Mbanefo OJUKWU [facility] 01-22-2023 16:07-0400 Body temperature 97.52 [degF] Mbanefo OJUKWU [facility] 01-22-2023 04:50-0400 Heart rate 77 /min Mbanefo OJUKWU [facility] 01-21-2023 21:09-0400 Heart rate 85 /min Mbanefo OJUKWU [facility] 01-21-2023 15:11-0400 Heart rate 78 /min Mbanefo OJUKWU [facility] 12-20-2022 09:37-0400 Hourly Rounding Maycol GEELIN [facility] 12-20-2022 09:37-0400 Promise to Return Maycolyasmine ARRIOLASLIN [facility] 12-20-2022 09:06-0400 Heart rate 65 /min Maycol TSERING [facility] 12-20-2022 09:06-0400 Respiratory rate 20 /min Maycolyasmine ARRIOLASLIN [facility] 12-20-2022 09:06-0400 SaO2% (BldA) [Mass fraction] 92 % Maycol TSERING [facility] 12-20-2022 08:56-0400 Heart rate 61 /min Maycol TSERING [facility] 12-20-2022 08:56-0400 Respiratory rate 20 /min Maycol TSERING [facility] 12-20-2022 08:56-0400 SaO2% (BldA) [Mass fraction] 92 % Maycol TSERING [facility] 12-20-2022 08:51-0400 Hourly Rounding Maycol TSERING [facility] 12-20-2022 08:51-0400 Promise to Return Maycol TSERING [facility] 12-20-2022 08:50-0400 Hourly Rounding Maycol TSERING [facility] 12-20-2022 08:31-0400 Promise to Return Maycol TSERING [facility] 12-20-2022 07:29-0400 Heart rate 60 /min Maycol TSERING [facility] 12-20-2022 07:29-0400 SaO2% (BldA) [Mass fraction] 93 % Maycol TSERING [facility] 12-20-2022 07:28-0400 Body temperature 98.06 [degF] Maycol TSERING [facility] 12-20-2022 07:28-0400 Diastolic blood pressure 69 mm[Hg] Maycol STERING [facility] 12-20-2022 07:28-0400 Mean blood pressure 94 mm[Hg] Maycol TSERING [facility] 12-20-2022 07:28-0400 Systolic blood pressure 143 mm[Hg] Maycol TSERING [facility] 12-20-2022 03:25-0400 Respiratory rate 16 /min Maycol TSERING [facility] 12-20-2022 00:15-0400 Body temperature 97.7 [degF] Maycol TSERING [facility] 12-20-2022 00:15-0400 Diastolic blood pressure 56 mm[Hg] Maycol TSERING [facility] 12-20-2022 00:15-0400 Systolic blood pressure 135 mm[Hg] Maycol TSERING [facility] 12-19-2022 19:28-0400 Body temperature 98.42 [degF] Maycol TSERING [facility] 12-19-2022 19:27-0400 Diastolic blood pressure 69 mm[Hg] Maycol TSERING [facility] 12-19-2022 19:27-0400 Mean blood pressure 90 mm[Hg] Maycol TSERING [facility] 12-19-2022 19:27-0400 Systolic blood pressure 134 mm[Hg] Maycol TSERING [facility] 12-19-2022 16:26-0400 gluc 111 mg/dL Maycol TSERING [facility] 12-19-2022 16:06-0400 Mean blood pressure 95 mm[Hg] Maycol TSERING [facility] 12-19-2022 16:00-0400 Body temperature 98.06 [degF] Maycol TSERING [facility] 12-19-2022 11:58-0400 gluc 201 mg/dL Maycol TSERING [facility] 12-19-2022 08:18-0400 gluc 93 mg/dL Maycolyasmine ARRIOLASLIN [facility] 12-19-2022 08:00-0400 Body temperature 98.6 [degF] Maycolyasmine ARRIOLASLIN [facility] 12-18-2022 05:46-0400 Blood Pressure Location Maycolyasmine ARRIOLASLIN [facility] 12-18-2022 05:46-0400 Heart rate 67 /min Maycolyasmine ARRIOLASLIN [facility] 12-18-2022 05:00-0400 Body temperature 98.42 [degF] Maycolyasmine ARRIOLASLIN [facility] 12-18-2022 05:00-0400 Mean blood pressure 78 mm[Hg] Maycol TSERING [facility] 12-18-2022 05:00-0400 Respiratory rate 20 /min Maycol TSERING [facility] 12-18-2022 04:00-0400 Mean blood pressure 77 mm[Hg] Maycol TSERING [facility] 12-18-2022 04:00-0400 Respiratory rate 21 /min Maycol TSERING [facility] 12-18-2022 03:00-0400 Mean blood pressure 75 mm[Hg] Maycol TSERING [facility] 12-18-2022 03:00-0400 Respiratory rate 22 /min Maycol TSERING [facility] 12-18-2022 00:09-0400 Heart rate 85 /min Maycol TSERING [facility] 12-17-2022 23:54-0400 Heart rate 86 /min Maycol TSERING [facility] 12-02-2022 14:00-0400 SaO2% (BldA) [Mass fraction] 93 % Maycol TSERING [facility] 12-02-2022 13:00-0400 Hourly Rounding Maycol TSERING [facility] 12-02-2022 13:00-0400 Promise to Return Maycol TSERING [facility] 12-02-2022 12:58-0400 Heart rate 85 /min Maycol TSERING [facility] 12-02-2022 12:58-0400 SaO2% (BldA) [Mass fraction] 88 % Maycol TSERING [facility] 12-02-2022 12:58-0400 Body temperature 97.7 [degF] Maycol TSERING [facility] 12-02-2022 12:58-0400 Diastolic blood pressure 75 mm[Hg] Maycol TSERING [facility] 12-02-2022 12:58-0400 Mean blood pressure 102 mm[Hg] Maycol TSERING [facility] 12-02-2022 12:58-0400 Systolic blood pressure 157 mm[Hg] Maycol TSERING [facility] 12-02-2022 12:10-0400 Hourly Rounding Maycol TSERING [facility] 12-02-2022 12:10-0400 Promise to Return Maycol TSERING [facility] 12-02-2022 11:30-0400 Hourly Rounding Maycolyasmine ARRIOLASLIN [facility] 12-02-2022 11:30-0400 Promise to Return Maycol TSERING [facility] 12-02-2022 08:00-0400 Blood Pressure Location Maycolyasmine ARRIOLASLIN [facility] 12-02-2022 08:00-0400 Diastolic blood pressure 79 mm[Hg] Maycol TSERING [facility] 12-02-2022 08:00-0400 gluc 127 mg/dL Maycol TSERING [facility] 12-02-2022 08:00-0400 Heart rate 76 /min Maycol TSERING [facility] 12-02-2022 08:00-0400 Respiratory rate 20 /min Maycol TSERING [facility] 12-02-2022 08:00-0400 Systolic blood pressure 141 mm[Hg] Maycol TSERING [facility] 12-02-2022 07:46-0400 Heart rate 66 /min Maycol TSERING [facility] 12-02-2022 07:46-0400 Respiratory rate 18 /min Maycol TSERING [facility] 12-02-2022 07:40-0400 Respiratory rate 18 /min Maycol TSERING [facility] 12-01-2022 23:32-0400 Body temperature 97.16 [degF] Maycol TSERING [facility] 12-01-2022 23:32-0400 Diastolic blood pressure 77 mm[Hg] Maycol TSERING [facility] 12-01-2022 23:32-0400 Mean blood pressure 101 mm[Hg] Maycol TSERING [facility] 12-01-2022 23:32-0400 Systolic blood pressure 130 mm[Hg] Maycol TSERING [facility] 12-01-2022 20:01-0400 Body temperature 97.16 [degF] Maycol TSERING [facility] 12-01-2022 20:01-0400 Mean blood pressure 101 mm[Hg] Maycol TSERING [facility] 12-01-2022 12:07-0400 Body temperature 97.52 [degF] Maycol TSERING [facility] 12-01-2022 07:30-0400 Body temperature 96.98 [degF] Maycol TSERING [facility] 12-01-2022 06:00-0400 gluc 110 mg/dL Maycol TSERING [facility] 11-30-2022 23:32-0400 FIO2 30 % Maycol TSERING [facility] 11-30-2022 20:04-0400 Mean blood pressure 98 mm[Hg] Maycol TSEIRNG [facility] 11-30-2022 04:38-0400 Mean blood pressure 91 mm[Hg] Maycol TSERING [facility] 11-29-2022 20:16-0400 FIO2 30 % Maycol TSERING [facility] 11-29-2022 19:00-0400 Blood Pressure Location Maycol TSERING [facility] 11-29-2022 08:10-0400 FIO2 30 % Maycol CAGLE [facility] 11-29-2022 04:08-0400 gluc 107 mg/dL Maycol CAGLE [facility] 11-29-2022 04:08-0400 Mean blood pressure 80 mm[Hg] Maycol CAGLE [facility] 11-29-2022 00:16-0400 Heart rate 48 /min Maycol CAGLE [facility] 11-28-2022 22:55-0400 Respiratory rate 19 /min Maycol CAGLE [facility] 11-28-2022 21:45-0400 Respiratory rate 18 /min Maycol CAGLE [facility] 11-28-2022 20:45-0400 Respiratory rate 22 /min Maycolyasmine CAGLE [facility] 11-28-2022 18:55-0400 SaO2% (BldA) [Mass fraction] 95.4 % Maycol CAGLE [facility] Resp Auto SS 11-28-2022 17:13-0400 Heart rate 59 /min Maycol CAGLE [facility] 09-07-2022 01:10-0400 Diastolic blood pressure 53 mm[Hg] [facility] 09-07-2022 01:10-0400 Heart rate 70 /min [facility] 09-07-2022 01:10-0400 SaO2% (BldA) [Mass fraction] 96 % [facility] 09-07-2022 01:10-0400 Systolic blood pressure 135 mm[Hg] [facility] Encounters Encounter Date Encounter Type Care Provider Facility Start: 02-01-2023 ambulatory Robin Garcia acility:[facility] Start: 01-21-2023 End: 01-24-2023 Evaluation and management of inpatient New Johnson Facility:[facility] Start: 01-21-2023 End: 01-24-2023 Evaluation and management of inpatient Steve HUNT [facility] Start: 01-15-2023 End: 01-16-2023 ambulatory Donta WALNUT Facility:CD:[id number] Start: 01-15-2023 End: 01-15-2023 Off-Site [facility] Start: 12-22-2022 End: 12-23-2022 ambulatory Donta WALNUT Facility:CD:[id number] Start: 12-22-2022 End: 12-22-2022 Off-Site [facility] Start: 12-18-2022 End: 12-20-2022 Evaluation and management of inpatient Maycol CAGLE Facility:[facility] Start: 12-17-2022 End: 12-20-2022 Evaluation and management of inpatient Maycol CAGLE [facility] Start: 12-14-2022 End: 01-16-2023 ambulatory Donta WALNUT Facility:CD:[id number] Start: 12-14-2022 End: 01-16-2023 In-Between Visit [facility] Start: 12-11-2022 ambulatory Donta SHAISTA Facilit y:[facility] Start: 12-03-2022 End: 12-03-2022 Off-Site [facility] Start: 12-03-2022 End: 12-04-2022 ambulatory Donta WALNUT Facility:CD:[id number] Start: 12-02-2022 End: 01-16-2023 ambulatory Donta NOONAN Facility:[facility] Start: 11-30-2022 ambulatory Facility:[id number] Start: 11-30-2022 ambulatory Facility:[id number] Start: 11-29-2022 ambulatory Facility:[id number] Start: 11-29-2022 End: 12-02-2022 Evaluation and management of inpatient Maycol CAGLE Facility:[facility] Start: 11-28-2022 End: 12-02-2022 Evaluation and management of inpatient Maycol CAGLE [facility] Start: 11-26-2022 End: 11-27-2022 ambulatory Bienvenido Barroso Facility:[facility] Start: 11-26-2022 End: 11-26-2022 Patient encounter procedure Bienvenido Barroso [facility] Start: 09-26-2022 End: 09-28-2022 ambulatory UNKNOWN PROVIDER Facility:[facility] Start: 09-07-2022 End: 09-08-2022 ambulatory UNKNOWN PROVIDER [facility] Start: 2022 End: 2022 ambulatory [facility] Emergenc y Triage, Treat and Transport Start: 2022 End: 2022 Emergency department patient visit [facility] Emergency Triage, Treat and Transport Comment [...] (2 - PPSV23 if available, else PCV20) [facility] Start: 1994 Shingles (RZV) Vacci ne (1 of 2) Shingles (RZV) Vaccine (1 of 2) [facility] Start: 1962 Hepatitis C screening Hepatitis C An tibody [facility] Start: 1962 Tetanus + diphtheria + acellular pertussis vaccine (product) Tdap Booster [facility] Immunizations Immunization Date Immunization Notes Care Provider Ryder pitt 03-12-2022 SARS-CoV-2 (COVID-19 ) mRNAMUL.ORD![id number] Donta SHAISTA [facility] 03-17-2021 Influenza, injectabl e, high-dose seasonal, quadrivalent, 0.7 mL, preservative free (UGX=626) Et3 [facility] 07-15-2020 Pfizer (12+ yrs) SARS-COV-2 (COVID-19) vaccine, mRNA, spike protein, LNP, pres. free, 30 mcg/0.3mL dose (HSV=935) [facility] 06-26-2020 Pfizer (12+ yrs) SARS-COV-2 (COVID-19) vaccine, mRNA, spike protein, LNP, pres. free, 30 mcg/0.3mL dose (YZD=366) Et3 [facility] 06-23-2019 influenza, high dose seasonal, preservative-free Et3 [facility] 05-14-2017 influenza, high dose seasonal, preservative-free Et3 [facility] 05-14-2017 pneumococcal conjuga te vaccine, 13 valent Et3 [facility] 04-04-2014 influenza, injectabl e, madin cee canine kidney, preservative free Et3 [facility] NEGATED: Highlighted row has not occurred!06-15-2014 pneumococcal polysaccharide vaccine, 23 valent Bienvenido Barroso [facility] Comment on above: Result Note: pt had vaccine last year per Payers Date Payer Category Payer Self-pay 2022 Unknown [id number] 2022 Medicare [employer] [id number] 2022-Present [address] [place] [address] Medicare [id number] 2022 Unknown [id number] 1944 Unknown [id number] [id number] 1944 Unknown [id number] 2.16.840.1.252997.3.579.2.732 1944 Unknown [id number] 2.16.840.1.509220.3.579.2.356 1944 Unknown [id number] 2.16.840.1.953341.3.579.2.356 1944 Unknown [id number] 2.16.840.1.016247.3.579.2.356 1944 Unknown [id number] 2.16.840.1.907740.3.579.2.72 1944 Unknown [id number] 2.16.840.1.595429.3.579.2.72 1944 Unknown [id number] 2.16.840.1.355909.3.579.2.72 1944 Unknown [id number] 2.16.840.1.113232.3.579.2.72 1944 Unknown [id number] 2.16.840.1.435956.3.579.2.72 1944 Unknown [id number] 2.16.840.1.202217.3.579.2.72 1944 Unknown [id number] 2.16.840.1.774421.3.579.2.727 1944 Unknown [id number] 2.16.840.1.565189.3.579.2727 1944 Unknown [id number] 2.16.840.1.112801.3.579.2.727 1944 Unknown [id number] 2.16.840.1.279820.3.579.2.727 1944 Unknown [id number] 2.840.1.702885.3.579.2.727 1944 Unknown [id number] 2.16840.1.450367.3.579.2.72 Social History Date Type Detail Facility Tobacco smoking status [facility] Tobacco smoking consumption unknown [facility] Start: 1945 Sex Assigned At Not on file [facility] Start: 04-24-2021 Tobacco smoking status Ex-smoker (finding) [facility] Sex Assigned At Male [facility] Functional Status Date Assessment Result Facility 01-21-2023 Functional Status No [facility] 01-21-2023 Functional Status [facility] 12-18-2022 Functional Status N/A [facility] 12-17-2022 Functional Status [facility] 11-29-2022 Functional Status N/A [facility] 11-28-2022 Functional Status [facility] Clinical Notes 09-07-2022 to 01-24-2023 Note Date & Type Note Facility 01-24-2023 Evaluation + Plan note Extrac gi from: Title:Discharge Note Author:New Johnson DO Date:01/24/23 Discharge To, Anticipated II - Intermediate Unit Discharged to - Home independently Transported [...] When Contact Information Dharmesh POTTS, Bienvenido Chavira, [address] [address]- Additional Instructions: Dementia, Tnzk-ap-Qpvh Extracted from: Title:APSO Note Author:New Johnson DO e:01/23/23 1. Generalized weakness (R53 .1: Weakness) IV fluids, trend BUN and creatinine PT/OT Currently awaiting pre-CERT for placement 2. Alzheimers disease (G30.9: Alzheimer's disease, unspecified) Continue Seroquel 3. CAD in [place] artery (I25.10: Atherosclerotic heart disease of [place] coronary artery without angina pectoris) Continue aspirin [...] Ordered: Initial Hospital Care/Day Moderate 55 Minutes 15236 Sbsq Hospital Care/Day Straight Fwd 25 Minutes [id number] 2. Alzheimers disease (G30.9: Alzheimer's disease, unspecified) Continue Seroquel 3. CAD in pauma artery (I25.10: Atherosclerotic heart disease of [place] coronary artery without angina pectoris) Continue aspirin [...] (G30.9: Alzheimer's disease, unspecified) 3. CAD in [place] artery (I25.10: Atherosclerotic heart disease of [place] coronary artery without angina pectoris) 4. COPD [...] Ordered: Initial Hospital Care/Day Moderate 55 Minutes [id number] 2. Alzheimers disease (G30.9: Alzheimer's disease, unspecified) Continue Seroquel 3. CAD in pauma artery (I25.10: Atherosclerotic heart disease of [place] coronary artery without angina pectoris) Continue aspirin [...] improving gait and building on physical strength. [facility]09-03-2023 [facility] [place] on above:Result Comment: Electronically Signed By: New Johnson DO.br\Date and Time Signed: 01/24/23 09:57 [id number] Hospital Discharge instructions Patient Education 01/24/2023 09:54:03 Dementia, Lryt-qi-Exvo Dementia Dementia is a condition that affects [...] Follow these instructions at home: Medicines Take hcxj-hoe-zbupuhi and prescription medicines only as told by [...] find more information Alzheimer's Association: www.alz.org National [place] on Aging: www.susie.nih.gov/alzheimers World Health Organization: www.who.int [...] the National Suicide Prevention Lifeline at or 992 in the [place] This is open 24 hours a day. Text the Crisis Text Line at 945656. Summary Dementia often affects memory and thinking. [...] provider. Document Revised: 12/03/2021 Document Reviewed: 09/23/2020 [employer] Patient Education 2022 [employer]. Follow Up Care 01/21/2023 15:06:04 With:Dharmesh POTTS, Bienvenido Chavira, SHEA Address: [place] [address]- When: Unknown [facility]08-31-2023 [facility]FishGreater [facility] Medical CenterComment on above:Result Comment: Electronically Signed By: New Johnson DO.br\Date and Time Signed: 01/21/23 17:53 [id number] Evaluation + Plan note Extracted from: Title:Discharge Note Author:MICHAEL POTTSJamir Gerry e:12/20/22 stable Discharge To, Anticipated II - Intermediate Unit Discharged to - [facility] SNF Discharge Diet(s): Calorie Controlled- 1800 Calorie Diet (12/20/22 09:46:00) Prescriptions alprazolam 0.5 mg Tab, 0.5 mg= 1 tab(s), Oral, Daily, PRN aspirin 81 mg Oral EC Tab, 81 mg= 1 tab(s), Oral, Daily Augmentin 875 mg oral tablet, 1 tab(s), Oral, q12hr ergocalciferol 50,000 intl units Cap, 42897 International_Unit= 1 cap(s), Oral, q7day furosemide 40 [...] BID With When Contact Information Bienvenido Barroso [employer] [place], [place] [address] (1) Additional Instructions: Call for followup [...] 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 Coronary artery disease (I25.10: Atherosclerotic heart disease of [place] coronary artery without angina pectoris) Patient had [...] 9. Pulmonary hypertension (I27.20: Pulmonary hypertension, unspecified) [place] secondary to above 10. Hypertension (I10: Essential (primary) hypertension) Await reconciliation of meds from the extended care facility. He did have 1 blood pressure of 106 systolically in the emergency department. With the fall and suspicion of intravascular depletion will transiently hold antihypertensives if it is identified he is actually on antihypertensives at the [facility] care facility. On a prior hospitalization [...] recent hospitalization has been titrated at the [facility] care facility. He was recently placed on Xanax, discontinue that at this time. Awaiting verification of meds from the [facility] facility 15. Encounter for deep vein thrombosis [...] Tests Pending * Legionella Antigen Urine 12/18/22 [facility]07-30-2023 NoteCRM entered the room to discuss dc planning. PCP, DME and insurance discussed. Patient is alert andinvolved in plan of care. Contact information given and whiteboard updated. Pt will dc to [facility] room 17 today. CRM to follow.[facility] CenterComment on above:Result Comment: Electronically Signed By: Natalie Grant\.br\Date and Time Signed: 12/20/22 11:52 [id number] [facility] CenterComment on above: Result Comment: Electronically Signed By: Jamir MCKINNEY MD\.br\Date and Time Signed: 12/20/22 10:[id number] Hospital Discharge instructions Patient Education 12/20/2022 09:48:09 [...] hard liquor (44 mL). General instructions Take arwk-nfu-egmkphf and prescription medicines as told by your [...] are not available, use an alcohol-based hand house worker. 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 [...] bacteria common in health care settings. Take gxnx-jhs-qqeicuh and prescription medicines as told by your [...] provider. Document Revised: 05/31/2022 Document Reviewed: 05/31/2022 [employer] Patient Education 2022 [employer] Follow Up Care 12/17/2022 23:50:19 With:Bienvenido Barroso Address: [address] [place] [id number] [facility] (1) When: Unknown Comments:Call for followup appointment [facility]07-28-2023 [facility]Result Comment: Electronically Signed By: Maycol CAGLE DO\.br\Date and Time Signed: 12/18/22 06:27 [id number] NoteSelect [facility], [place]woodComment on above:Result Comment: Electronically Signed By: Lizeth Cedeno MD\.br\Date and Time Signed: 12/02/22 12:28 [id number] Evaluation + Plan noteExtracted from: Title:Discharge Note Author:Lizeth Cedeno MD ate:12/02/22 Stable Discharge To, Anticipated II - Intermediate Unit Discharged to - Home with family care Transported by, Anticipated - Family Discharge Diet(s): Other: Limit fluids to 1800 ml/day (12/02/22 12:23:00) Prescriptions aspirin 81 mg Oral EC Tab, 81 mg= 1 tab(s), Oral, Daily ergocalciferol 50,000 intl units Cap, 39820 International_Unit= 1 cap(s), Oral, q7day furosemide 40 [...] Bedtime With When Contact Information Joanie Jiménez [facility] [address] [place] [address]- Business (1) Additional Instructions: HFpEF Dave [place] [address] [place] [address]- Business (1) Additional Instructions: Cog impariment, [facility] Bienvenido Barroso In [address] [place] [address]- Business (1) Additional Instructions: Extracted from: Title:UPDATE [...] of CAD and previous coronary interventions in [place] with no indication of recurrent CAD, would not recommend investigation for ischemic heart disease at this time Extracted from: Title:APSO Note Author:Pao POTTS, [facility] Date: Acute respiratory failure wi th hypoxia [...] as able, pulm avery. -check echo Ordered: [facility] Care/Day High 50 Minutes 09685 2. Acute on chronic diastolic heart failure (I50.33: Acute on chronic diastolic (congestive) heart failure) c/w spironolactone and lasix IV 40mg qd -strict I/Os and daily weight - last echo was done 2014 with EF of 50%. will recheck this visit Ordered: [facility] Care/Day High 50 Minutes 81682 3. COPD without exacerbation (J44.9: Chronic obstructive pulmonary disease, unspecified) Ordered: [facility] Care/Day High 50 Minutes 18868 4. Weakness (R53.1: Weakness) -pt/ot Ordered: [facility] Care/Day High 50 Minutes 42685 5. Sinus bradycardia (R00.1: Bradycardia, unspecified) baseline. last EKG similar. -pt had decreased HR overnight so BB was held. -continue to monitor on tele Ordered: [facility] Care/Day High 50 Minutes 03731 6. Coronary artery disease (I25.10: Atherosclerotic heart disease of pauma coronary artery without angina pectoris) -c/w ASA Ordered: [facility] Care/Day High 50 Minutes 82326 7. Obstructive sleep apnea (G47.33: Obstructive sleep apnea (adult) (pediatric)) -CPAP qHS Ordered: [facility] Care/Day High 50 Minutes 08346 8. Pulmonary hypertension (I27.20: Pulmonary hypertension, unspecified) c/w spironolactone 50mg -lasix 40 mg iv qd -strict I/Os daily weights -check echo Ordered: [facility] Care/Day High 50 Minutes 49449 9. Abdominal pain (R10.9: Unspecified abdominal pain) resolved no complaints this morning Ordered: [facility] Care/Day High 50 Minutes 31560 10. Hypertension (I10: Essential (primary) hypertension) c/w spironolactone Ordered: [facility] Care/Day High 50 Minutes 63998 11. Diabetes (E11.9: Type 2 diabetes mellitus without complications) BGT qACHS -c/w glimepiride Ordered: [facility] Care/Day High 50 Minutes 45651 12. Hyperlipidemia (E78.5: Hyperlipidemia, unspecified) -hold statin due to elevated CK Ordered: [facility] Care/Day High 50 Minutes 63432 13. Chronic anemia (D64.9: Anemia, unspecified) monitor Ordered: [facility] Care/Day High 50 Minutes 90832 14. BPH (benign prostatic hyperplasia) (N40.0: Benign prostatic hyperplasia without lower urinary tract symptoms) c/w tamsulosin Ordered: [facility] Care/Day High 50 Minutes 25881 15. Dementia (F03.90: Unspecified dementia, unspecified severity, without behavioral disturbance, psychotic disturbance, mood disturbance, and anxiety) -c/w seroquel 25mg qHS Ordered: [facility] Care/Day High 50 Minutes 70188 16. Encounter for deep vein thrombosis (DVT) prophylaxis (Z29.9: Encounter for prophylactic measures, unspecified) Ordered: [facility] Care/Day High 50 Minutes 10024 17. Elevated CK (R74.8: Abnormal levels of other serum enzymes) -CK 1000 this morning. will monitor and hold statin - will not give fluids due to current diuresis Ordered: [facility] Care/Day High 50 Minutes 35364 COPD with acute exacerbation (J44.1: Chronic obstructive [...] artery disease (I25.10: Atherosclerotic heart disease of pauma coronary artery without angina pectoris) Continue aspirin, [...] Scheduled Provider:Donta NOONAN MD Location:Extended Care Appointment Type:[facility]07-10-2023 NoteOT [facility] score 15/24 = SNF. Patient requires assist w/ all transfers and self care at this time. Inpatient OT services to follow daily to progress w/ functional skills.[facility]07-09-2023 NotePT Evaluation completed with an [facility] score of 16/24. Pt requires Min A for bed mobility and min/Mod A to stand. Pt was able to take two sidesteps. Will follow daily, but SN[facility]Result Comment: Electronically Signed By: Maycol CAGLE DO\.br\Date and Time Signed: 11/29/22 01:33 [id number] Hospital Discharge instructions Follow Up Care 11/28/2022 17:10:04 With:Joanie Jiménez Address: [facility] [address], [address] [place] [address]- Business (1) When: Unknown Comments:HFpEF With:Dave Cruz Address: [address] [place] [phone]- Business (1) When: Unknown Comments:Cog impariment, [facility] With:Bienvenido Barroso Address: [address] [place] [id number]- Business (1) When: Unknown [facility]05-20-2023 [place] [facility]:Result Comment: Electronically Signed By: Adeline COLEMAN\.br\Date and Time Signed: 10/10/22 17:53 EDT\.br\Electronically Co- Signed By: Ganesh Minaya MD\.br\Date and Time Co-Signed: 10/10/22 18:51 EDT 09-27-2022 [facility]:Result Comment: Electronically Signed By: Adeline COLEMAN\.br\Date and Time Signed: 09/26/22 21:20 EDT\.br\Electronically Co-Signed By: Ganesh Minaya MD\.br\Date and Time Co-Signed: 09/27/22 08:00 [id number] History of Present illness Narrative* Marcelino Echavarria MD - 09/07/2022 1:12 AM EDT Images from the original note were not included. EMERGENCY TRIAGE, TREAT AND TRANSPORT (ET3) DOCUMENTATION OF TELEHEALTH VISIT Date / Time: 09/06/20222146 Name: Clyde Humphrey : 1945 SSN: [id number] EMS Agency: [facility] [x] Verbal consent obtained [] Implied [...] note No data available for this section [facility] Diagnosis Fall, initial encounter- Primary [facility] No data available for this section [facility] No data available for this section [facility] Summary Purpose Family History No Family History [...] section and content) DATE CREATED AUTHOR 06/26/2021 [facility] dical Specialist DATE CREATED AUTHOR AUTHOR'S ORGANIZ ATION 09/30/2022 [facility] DATE CREATED AUTHOR AUTHOR'S ORGANIZ ATION 12/05/2022 [facility] DATE CREATED AUTHOR AUTHOR'S ORGANIZ ATION 03/26/2023 [facility] DATE CREATED AUTHOR AUTHOR'S ORGANIZ ATION 05/04/2023 [facility] Reason for Visit (unrecogniz ed section and content) Reason Comments Fall Patient Care team informatio n (unrecognized section and content) Personnel Name: Bienvenido Barroso MD Address: Address: [address] [place] [id number] Name: Andrew Rodriguez Personnel Name: Bienvenido Barroso MD Address: Address: [address] [place] [address] Name: Andrew Rodriguez Personnel Name: Bienvenido Barroso MD Address: Address: [address] [place] [address] Name: Andrew Rodriguez Personnel Name: Bienvenido Barroso MD Address: Address: [address] [place] [address] Name: Andrew Rodriguez Personnel Name: Bienvenido Barroso MD Address: Address: [address] [place] [address] Name: Andrew Rodriguez Personnel Name: Bienvenido Barroso MD Address: Address: [address] [place] [address] Name: Andrew Rodriguez Personnel Name: Bienvenido Barroso MD Address: Address: [address] [place] [address] Name: Andrew Rodriguez Personnel Name: Bienvenido Barroso MD Address: Address: [address] [place] [address] Name: Luis Gil LPN Name: Andrew Rodriguez [...] BE BASED ON THE PRIMARY CLINICAL RECORDS. [employer] provides no warranty or guarantee of the accuracy or completeness of information in this document.
[2023-08-27 08:26] LABS: Bilirubin Urine NEGATIVE (NEGATIVE); Blood Urine NEGATIVE (NEGATIVE); Clarity Urine CLEAR (CLEAR); Color Urine LT. YELLOW (YELLOW); Glucose Urine UA NEGATIVE (NEGATIVE); Ketones Urine NEGATIVE (NEGATIVE); Leukocyte Esterase Urine NEGATIVE (NEGATIVE); Nitrite Urine NEGATIVE (NEGATIVE); Protein Urine NEGATIVE (NEG/TRACE); Specific Gravity Urine 1.015 (1.005-1.025); Urobilinogen Urine 0.2 EU/dL (0.2-1.0); pH Urine 5.5 (5.0-9.0)
[2023-08-27 08:28] LABS: Urine Microscopic Indicated NO
== END 2023-08-26 14:15 | disposition home or self-care (01) ==
LOC: LAB 14:14
PROVIDERS: PCP Family Medicine; Visit Provider Family Medicine
DX: R45.1 Restlessness and agitation (principal); R41.0 Disorientation, unspecified
CPT/HCPCS: 81003

== ENCOUNTER 2023-09-03 03:19 | Outpatient (REF) | payer OTHER, SELFPAY ==
--- OUTSIDE RECORDS SUMMARY | 2023-09-03 03:23 | XMS_ITS | CCD ---
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 Name Role Phone Unavailable Primary Care Provider [...] Refills(s) 0 Start Date: 06/16/14 Status: Ordered [id number] 200 actuat albuterol 0.09 mg/actuat metered dose inhaler (4 sources) beta2-Adrenergic Agonist Start: 04-27-2021 take 2 puff(s) by inhalation four times daily for wheezing Pro-Air HFA CFC free 90 mcg/inh MDI 2 puff(s), Inhalation, QID for wheezing, 8.5 gram, Refill(s) 0, [facility], 167.6, cm, 04/24/21 18:14:00 EST, Height/Length [...] Daily, # 30 tab(s), Refills(s) 0, Pharmacy: [facility], 167, cm, 11/28/22 17:20:00 EDT, Height/Length [...] Daily, # 90 tab(s), Refills(s) 4, Pharmacy: [facility], 160, cm, 12/18/22 0:04:00 EDT, Height/Length [...] Daily, # 90 tab(s), Refills(s) 4, Pharmacy: [facility], 160, cm, 12/18/22 0:04:00 EDT, Height/Length [...] Daily, # 90 tab(s), Refills(s) 1, Pharmacy: [facility], 160, cm, 12/18/22 0:04:00 EDT, Height/Length Dosing, 94, kg, 12/18/22 0:04:00 EDT, Weight Dosing Start Date: 01/15/23 Status: Ordered Start: 12-02-2022 take 1 tablet by ruperto th once daily furosemide 40 mg Tab 40 mg = 1 tab(s), Oral, Daily, # 30 tab(s), Refills(s) 0, Pharmacy: [facility], 167, cm, 11/28/22 17:20:00 EDT, Height/Length [...] day, # 30 tab(s), Refills(s) 0, Pharmacy: [facility], 167, cm, 09/26/22 10:09:00 EDT, Height/Length [...] qHS, # 210 tab(s), Refills(s) 1, Pharmacy: [facility], 160, cm, 12/18/22 0:04:00 EDT, Height/Length Dosing, 94, kg, 12/18/22 0:04:00 EDT, Weight Dosing Start Date: 01/15/23 Status: Ordered Start: 12-14-2022 quetiapine 25 mg Tab See Instructions, 25 mg qAM- 75 mg q1600 - 75mg qHS, Refills(s) 0 Start Date: 12/14/22 Status: Ordered Start: 12-02-2022 take 1 tablet by [facility] at bedtime quetiapine 50 mg oral tablet 50 mg = 1 tab(s), Oral, Bedtime, # 30 tab(s), Refills(s) 0, Pharmacy: [facility], 167, cm, 11/28/22 17:20:00 EDT, Height/Length Dosing, 99.8, kg, 11/28/22 17:20:00 EDT, Weight Dosing Start Date: 12/02/22 Status: Ordered Start: 05-31-2021 take 1 tablet by [facility] once daily quetiapine 50 mg oral tablet 50 mg = 1 tab(s), Oral, Daily, # 30 tab(s), Refills(s) 0 Start Date: 05/31/21 Status: Ordered spironolactone 25 mg oral tablet (8 sources) Aldosterone Antagonist Start: 01-15-2023 take 1 tablet by mouth once daily spironolactone 25 mg Tab 25 mg = 1 tab(s), Oral, Daily, # 90 tab(s), Refills(s) 1, Pharmacy: [facility], 160, cm, 12/18/22 0:04:00 EDT, Height/Length Dosing, 94, kg, 12/18/22 0:04:00 EDT, Weight Dosing Start Date: 01/15/23 Status: Ordered Start: 06-16-2014 take 1 tablet by [facility] once daily spironolactone 50 mg Tab [...] week(s), # 8 cap(s), Refills(s) 0, Pharmacy: [facility], 167, cm, 11/28/22 17:20:00 EDT, Height/Length [...] Completed Start: 06-16-2014 take 1 capsule by [facility] twice daily tamsulosin 0.4 mg Cap [...] Coronary atherosclerosis; Translations: [Atherosclerotic heart disease of [place] coronary artery without angina pectoris] Onset: 11-29-2022 [...] Insurance Correspondenceon 1 05-25-2022 Insurance Correspondence [id number]# 1.00TIFF [facility] Coding Queryon 02-17-2023 Coding Query [facility] Discharge Instructionson Discharge Instructions [id number]# 1.00CD:127 Normal [facility] Transfer Documentson 023 Transfer Documents [id number]# 1.00CD:127 Normal [facility] Discharge Note-Nursingon Discharge Note-Nursing Normal [facility] Interdisciplinary Note - Santosh e Manageron 01-23-2023 Interdisciplinary Note - Structural Shop Helper [facility] Comment on above: Result Comment: Elec tronically Signed By: Norma Garcia RN\.br\Date and Time Signed: 01/23/23 16:29 EDT Progress Note-Physicianon Progress Note-Physician Normal [facility] Comment on above: Result Comment: Elec tronically Signed By: New Johnson DO.br\Date and Time Signed: 01/23/23 09:50 EDT Auto Diffon 01-22-2023 Basophils/100 WBC (Bld) 0.7 % Normal 0.0-2.0 [facility] Comment on above: Order Comment: Order Added by Discern Expert. Performed By: #### 2 455326, 34126254, 2240669, 9663220 ####[address] [place] [address] Basophils/Leukocytes Auto (Bld) [Pure # fraction] 0.1 E9/L Normal 0.0-0.2 [facility] Comment on above: Order Comment: Order Added by Discern Expert. Performed By: #### 2 848278, 19594745, 2358038, 6348922 ####[address] [address] Eosinophils/100 WBC (Bld) 9.3 % High 0.0-8.0 [facility] Comment on above: Order Comment: Order Added by Discern Expert. Performed By: #### 2 462888, 42328095, 8403072, 7327746 ####[address] [address] Eosinophils/Leukocytes Auto (Bld) [Pure # fraction] 0.8 E9/L High 0.0-0.5 [facility] Comment on above: Order Comment: Order Added by Discern Expert. Performed By: #### 2 896180, 56858381, 7801244, 7235489 ####[address] [address] Lymphocytes/100 WBC (Bld) 17.2 % Normal 14.0-50.0 [facility] Comment on above: Order Comment: Order Added by Discern Expert. Performed By: #### 2 331758, 52073150, 5773453, 3365266 ####[address] [address] Lymphocytes/Leukocytes Auto (Bld) [Pure # fraction] 1.4 E9/L Normal 1.0-4.0 [facility] Comment on above: Order Comment: Order Added by Discern Expert. Performed By: #### 2 435136, 61479746, 3045430, 3701502 ####[address] [address] Monocytes/100 WBC (Bld) 10.0 % Normal 4.0-14.0 [facility] Comment on above: Order Comment: Order Added by Discern Expert. Performed By: #### 2 957826, 70627595, 9409750, 4466418 ####[address] [place] [address] Monocytes/Leukocytes Auto (Bld) [Pure # fraction] 0.8 E9/L Normal 0.2-1.0 [facility] Comment on above: Order Comment: Order Added by Discern Expert. Performed By: #### 2 839992, 91920181, 2059546, 9314766 ####[address] [address] Neutrophils/100 WBC (Bld) 62.8 % Normal 36.0-75.0 [facility] Comment on above: Order Comment: Order Added by Discern Expert. Performed By: #### 2 909471, 10504266, 4059981, 2278074 ####[address] [address] Neutrophils/Leukocytes Auto (Bld) [Pure # fraction] 5.2 E9/L Normal 2.0-7.5 [facility] Comment on above: Order Comment: Order Added by Bethany Expert. Performed By: #### 2 272453, 99616879, 1434689, 7632883 ####[address] [address] CBC w/ Auto Diffon Erythrocyte distribution width (RBC) [Ratio] 15.2 % High 10.9-14.2 [facility] Comment on above: Performed By: #### 2 930849, 35582655, 3701406, 5665773 ####[address] [place] [address] Hematocrit (Bld) [Volume fraction] 43.1 % Normal 37.7-49.0 [facility] Comment on above: Performed By: #### 2 096084, 31996817, 1414531, 9056008 ####[address] [address] Hemoglobin (Bld) [Mass/Vol] 14.6 g/dL Normal 13.5-17.5 [facility] Comment on above: Performed By: #### 2 054784, 43005582, 3421212, 1748150 ####[facility] [address] [place] [address] MCH (RBC) [Entitic mass] 28.1 pg Normal 27.0-34.0 [facility] Comment on above: Performed By: #### 2 087150, 74683461, 0405898, 5439335 ####[facility] [address] [place] [address] MCHC (RBC) [Mass/Vol] 33.8 g/dL Normal 31.4-36.0 [facility] Comment on above: Performed By: #### 2 463937, 84550165, 4477057, 3439769 ####[address] [address] MCV (RBC) [Entitic vol] 83.2 fL Normal 80.0-100.0 [facility] Comment on above: Performed By: #### 2 174755, 07869840, 3997062, 0300175 ####[facility] [address] [place] [address] Platelet mean volume (Bld) [Entitic vol] 8.6 fL Normal 6.4-10.8 [facility] Comment on above: Performed By: #### 2 582091, 69733160, 5364176, 7352201 ####[address] [address] Platelets (Bld) [#/Vol] 221.0 E9/L Normal 150.0-500.0 [facility] Comment on above: Performed By: #### 2 734190, 57898749, 7708812, 3461038 ####[facility] [address] [place] [address] RBC (Bld) [#/Vol] 5.2 E12/L Normal 4.3-5.9 [facility] Comment on above: Performed By: #### 2 511305, 11564837, 5517956, 6877620 ####[facility] [address] [place] [address] WBC corrected for nucl RBC Auto (Bld) [#/Vol] 8.3 E9/L Normal 4.0-11.0 [facility] Comment on above: Performed By: #### 2 933974, 81939777, 1952221, 2569190 ####[facility] [address] [place] [address] CHEMISTRYOrdered By: Lab ROP User on 01-22-2023 Glucose [Mass/Vol] 121 mg/dL High 55 - 99 mg/dL [facility] POC Subsection Comment on above: Result Comment: Gareth guerrero RN/ POC Device SN [id number] Invalid Interpretation Code [facility] POC Subsection POC User ID [id number] Invalid Interpretation Code [facility] POC Subsection POC Username LATONIA MALHOTRA Invalid Interpretation Code [facility] POC Subsection CHEMISTRYOrdered By: SYSTEM SYSTEM on [...] 56 mL/min/1.73 m2 Low >=59mL/min/ 1.73 m2 [facility] Chem S Globulin (S) [Mass/Vol] 3.6 g/dL [...] 01-22-2023 Albumin [Mass/Vol] 3.7 g/dL Normal 3.3-5.0 [facility] Comment on above: Performed By: #### 2 740853, 94500257, 4411190, 0667444 ####[facility] [address] [place] [address] Albumin/Globulin (S) [Mass conc ratio] 1.0 Low 1.1-2.2 [facility] Comment on above: Performed By: #### 2 159566, 56961883, 0230808, 9113912 ####[facility] [address] [place] [address] ALP [Catalytic activity/Vol] 47 Int._Unit/L Normal 21-98 [facility] Comment on above: Performed By: #### 2 945385, 94156812, 0170809, 3474816 ####[facility] [address] [place] [address] ALT No additional P-5'-P [Catalytic activity/Vol] 21 Int._Unit/L Normal 6-46 [facility] Comment on above: Performed By: #### 2 343521, 67962068, 3663751, 9138429 ####[facility] [address] [place] [address] Anion gap [Moles/Vol] 15 mmol/L Normal 6-16 [facility] Comment on above: Performed By: #### 2 933706, 52011647, 8245029, 6093039 ####[facility] [address] [facility] [place] [address] AST [Catalytic activity/Vol] 21 Int._Unit/L Normal 5-43 [facility] Comment on above: Performed By: #### 2 748395, 79762340, 1707563, 8858452 ####[facility] [address] [place] [address] Bilirubin [Mass/Vol] 0.8 mg/dL Normal 0.0-1.1 [facility] Comment on above: Performed By: #### 2 491105, 65732338, 5141843, 3982724 ####[facility] [address] [place] [address] Calcium [Mass/Vol] 9.6 mg/dL Normal 8.9-11.1 [facility] Comment on above: Performed By: #### 2 058386, 62627871, 0928246, 5224908 ####[facility] [address] [place] [address] Chloride [Moles/Vol] 97 mmol/L Low 101-111 [facility] Comment on above: Performed By: #### 2 241756, 64186340, 0303312, 5770848 ####[facility] [address] [place] [address] CO2 [Moles/Vol] 30 mmol/L Normal 21-31 [facility] Comment on above: Performed By: #### 2 379734, 04192490, 5939697, 2179717 ####[facility] [address] [place] [address] Creatinine [Mass/Vol] 1.3 mg/dL Normal 0.5-1.3 [facility] Comment on above: Performed By: #### 2 226722, 06784321, 1732634, 6159393 ####[facility] [address] [place] [address] Globulin (S) [Mass/Vol] 3.6 g/dL Normal 1.4-4.0 [facility] Comment on above: Performed By: #### 2 591657, 57700514, 5449478, 8996654 ####[facility] [address] [place] [address] Glucose [Mass/Vol] 124 mg/dL Normal 55-199 [facility] Comment on above: Result Comment: If t his glucose result represents a fasting glucose, interpretation should refer to the following reference range: 55-99 mg/dL Performed By: #### 2 070087, 90715572, 7726605, 1625579 ####[facility] [address] [place] [address] Potassium [Moles/Vol] 4.0 mmol/L Normal 3.5-5.3 [facility] Comment on above: Performed By: #### 2 988806, 63858394, 0241987, 4519206 ####[facility] [address] [place] [address] Protein [Mass/Vol] 7.3 g/dL Normal 6.0-7.8 [facility] Comment on above: Performed By: #### 2 031953, 84362825, 3289860, 1059663 ####[facility] [address] [place] [address] Sodium [Moles/Vol] 138 mmol/L Normal 135-145 [facility] Comment on above: Performed By: #### 2 110632, 76968854, 5995065, 5608711 ####[facility] [address] [place] [address] Urea nitrogen [Mass/Vol] 42 mg/dL High 5-21 [facility] Comment on above: Performed By: #### 2 363061, 00531410, 5074762, 2403128 ####[facility] [address] [place] [address] Urea nitrogen/Creatinine [Mass ratio] 32 No Units High 10-20 [facility] Comment on above: Performed By: #### 2 532014, 90972754, 2906788, 7615851 ####[facility] [address] [place] [address] Capillary Glucose POCon Glucose [Mass/Vol] 121 mg/dL High 55-99 [facility] Comment on above: Result Comment: Gareth guerrero RN/ Performed By: #### 2 73121773 ####[facility] [address] [place] [address] Coding Queryon 01-22-2023 Coding Query Normal [facility] HEMATOLOGYOrdered By: SYSTEM SYSTEM on 01-22-2023 Basophils/100 [...] Correspondence Off iceon 01-22-2023 Insurance Correspondence Office [id number]#1 .00CD:127 Normal [facility] Interdisciplinary Note - Santosh e Manageron 01-22-2023 Interdisciplinary Note - Structural Shop Helper Normal [facility] Comment on above: Result Comment: Elec tronically Signed By: Downs, Natalie R\.br\Date and Time Signed: 01/22/23 11:13 EDT Interdisciplinary Note - Murphy n 01-22-2023 Interdisciplinary Note - OT Normal [facility] Interdisciplinary Note - PTo n 01-22-2023 Interdisciplinary Note - PT Normal [facility] Message from Medicareon Message from Medicare [id number]#1 .00CD:127 Normal [facility] Progress Note-Physicianon Progress Note-Physician Normal [facility] Comment on above: Result Comment: Elec tronically Signed By: New Johnson DO\.br\Date and Time Signed: 01/22/23 14:15 EDT eGFRon 01-22-2023 GFR/1.73 sq M.predicted among non-blacks MDRD (S/P/Bld) [Vol rate/Area] 56 mL/min/1.73 m2 Low >=59 [facility] Comment on above: Order Comment: Order added by Discern Expert. Result Comment: Corporate Recruiter earnest kidney disease could be indicated at eGFR's of less than 60 mL/min/1.73m2. Kidney failure is indicated at less than 15 mL/min/1.73m2. Performed By: #### 2 289702, 20979549, 2352274, 8944438 ####[facility] [address] [place] [address] Auto Diffon 01-21-2023 Basophils/100 WBC (Bld) 0.9 % Normal 0.0-2.0 [facility] Comment on above: Order Comment: Order Added by Discern Expert. Performed By: #### 2 807904, 8532033, 78709319, 77543243, 1416152, 9008522 ####[facility] [address] [place] [address] Basophils/Leukocytes Auto (Bld) [Pure # fraction] 0.1 E9/L Normal 0.0-0.2 [facility] Comment on above: Order Comment: Order Added by Discern Expert. Performed By: #### 2 260542, 8074007, 94590745, 02108645, 2230972, 2245483 ####[facility] [address] [place] [address] Eosinophils/100 WBC (Bld) 3.3 % Normal 0.0-8.0 [facility] Comment on above: Order Comment: Order Added by Discern Expert. Performed By: #### 2 469025, 9861662, 61243001, 04585448, 0876243, 2009952 ####[address] [place] [address] Eosinophils/Leukocytes Auto (Bld) [Pure # fraction] 0.4 E9/L Normal 0.0-0.5 [facility] Comment on above: Order Comment: Order Added by Discern Expert. Performed By: #### 2 005826, 1557670, 52549904, 61553798, 0116969, 2740518 ####[address] [address] Lymphocytes/100 WBC (Bld) 10.4 % Low 14.0-50.0 [facility] Comment on above: Order Comment: Order Added by Discern Expert. Performed By: #### 2 275636, 0553660, 82550594, 01399611, 3710791, 2549966 ####[address] [address] Lymphocytes/Leukocytes Auto (Bld) [Pure # fraction] 1.2 E9/L Normal 1.0-4.0 [facility] Comment on above: Order Comment: Order Added by Discern Expert. Performed By: #### 2 977546, 7010380, 09382214, 78236715, 9136840, 4180839 ####[address] [address] Monocytes/100 WBC (Bld) 7.4 % Normal 4.0-14.0 [facility] Comment on above: Order Comment: Order Added by Discern Expert. Performed By: #### 2 297949, 9029571, 40104235, 31167075, 8242627, 7127024 ####[address] [place] [address] Monocytes/Leukocytes Auto (Bld) [Pure # fraction] 0.9 E9/L Normal 0.2-1.0 [facility] Comment on above: Order Comment: Order Added by Discern Expert. Performed By: #### 2 814036, 5271027, 96526959, 49458975, 2555534, 5687041 ####[address] [place] [address] Neutrophils/100 WBC (Bld) 78.0 % High 36.0-75.0 [facility] Comment on above: Order Comment: Order Added by Discern Expert. Performed By: #### 2 913156, 4594266, 42339471, 83712754, 2655231, 4468284 ####[address] [place] [address] Neutrophils/Leukocytes Auto (Bld) [Pure # fraction] 9.1 E9/L High 2.0-7.5 [facility] Comment on above: Order Comment: Order Added by Discern Expert. Performed By: #### 2 170650, 8010594, 25114797, 26371514, 9549655, 8241877 ####[facility] [address] [place] [address] BMPon 01-21-2023 Creatinine [Mass/Vol] 1.2 mg/dL Normal 0.5-1.3 [facility] Comment on above: Performed By: #### 2 908956, 8169323, 06789166, 40279312, 6816255, 0798811 ####[facility] [address] [place] [address] Urea nitrogen [Mass/Vol] 38 mg/dL High 5-21 [facility] Comment on above: Performed By: #### 2 962903, 5352662, 03743013, 51560761, 5084813, 6859750 ####[address] [place] [address] Urea nitrogen/Creatinine [Mass ratio] 32 No Units High 10-20 [facility] Comment on above: Performed By: #### 2 355821, 7470278, 21631426, 76492443, 1844351, 9980351 ####[facility] [address] [place] [address] Anion gap [Moles/Vol] 14 mmol/L Normal 6-16 [facility] Comment on above: Performed By: #### 2 781028, 1925401, 03767076, 46027156, 0816752, 8079411 ####[facility] [address] [place] [address] Calcium [Mass/Vol] 9.9 mg/dL Normal 8.9-11.1 [facility] Comment on above: Performed By: #### 2 995774, 1029084, 79275950, 93118921, 5161362, 0018114 ####[facility] [address] [place] [address] Chloride [Moles/Vol] 95 mmol/L Low 101-[address] [facility] Comment on above: Performed By: #### 2 276613, 0023540, 19273103, 10796419, 1667868, 4451670 ####[facility] [address] [place] [address] CO2 [Moles/Vol] 31 mmol/L Normal 21-31 [facility] Comment on above: Performed By: #### 2 413789, 5386503, 61197428, 59893513, 4572977, 7733389 ####[facility] [address] [facility] [place] [address] Glucose [Mass/Vol] 124 mg/dL Normal 55-199 [facility] Comment on above: Result Comment: If t his glucose result represents a fasting glucose, interpretation should refer to the following reference range: 55-99 mg/dL Performed By: #### 2 450196, 6895861, 49692791, 06036333, 2148509, 8023181 ####[facility] [address] [place] [address] Potassium [Moles/Vol] 4.3 mmol/L Normal 3.5-5.3 [facility] Comment on above: Performed By: #### 2 420713, 6274774, 61400752, 37246346, 0869735, 6163382 ####[facility] [address] [place] [address] Sodium [Moles/Vol] 136 mmol/L Normal 135-145 [facility] Comment on above: Performed By: #### 2 977540, 0498767, 25139562, 20872927, 0375786, 9042141 ####[facility] [address] [place] [address] CBC w/ Auto Diffon 3 Erythrocyte distribution width (RBC) [Ratio] 15.4 % High 10.9-14.2 [facility] Comment on above: Performed By: #### 2 226429, 7122995, 64010297, 73139720, 1815557, 2882114 ####[facility] [address] [place] [address] Hematocrit (Bld) [Volume fraction] 42.5 % Normal 37.7-49.0 [facility] Comment on above: Performed By: #### 2 745621, 0459321, 21623224, 95002228, 4261415, 2759687 ####[facility] [address] [place] [address] Hemoglobin (Bld) [Mass/Vol] 13.9 g/dL Normal 13.5-17.5 [facility] Comment on above: Performed By: #### 2 867797, 3262554, 93373535, 14977137, 0855553, 4549712 ####[facility] [address] [place] [address] MCH (RBC) [Entitic mass] 27.3 pg Normal 27.0-34.0 [facility] Comment on above: Performed By: #### 2 526104, 5949375, 72256161, 39983972, 3674023, 5039401 ####[facility] [address] [place] [address] MCHC (RBC) [Mass/Vol] 32.7 g/dL Normal 31.4-36.0 [facility] Comment on above: Performed By: #### 2 703831, 0418261, 04498372, 80250521, 1163029, 2513926 ####[address] [address] MCV (RBC) [Entitic vol] 83.4 fL Normal 80.0-100.0 [facility] Comment on above: Performed By: #### 2 999874, 4322945, 33273378, 16137525, 8641378, 3851917 ####[address] [address] Platelet mean volume (Bld) [Entitic vol] 8.6 fL Normal 6.4-10.8 [facility] Comment on above: Performed By: #### 2 983792, 4683789, 81763265, 78485002, 0600656, 1003803 ####[address] [address] Platelets (Bld) [#/Vol] 252.0 E9/L Normal 150.0-500.0 [facility] Comment on above: Performed By: #### 2 456859, 6168570, 39748525, 30034227, 3189324, 1994468 ####[address] [address] RBC (Bld) [#/Vol] 5.1 E12/L Normal 4.3-5.9 [facility] Comment on above: Performed By: #### 2 510981, 5594647, 64080619, 73853811, 3032388, 0366922 ####[facility] [address] [place] [address] WBC corrected for nucl RBC Auto (Bld) [#/Vol] 11.6 E9/L High 4.0-11.0 [facility] Comment on above: Performed By: #### 2 162847, 2287205, 53797194, 54128017, 1863018, 5676081 ####[facility] [address] [place] [address] CHEMISTRYOrdered By: SYSTEM SYSTEM on 01-21-2023 Troponin [...] Treatmenton 12-24 Consent for Treatment [id number] .[id number]:127 Normal [facility] ED Clinical Summaryon 2022 ED Clinical Summary Normal [facility] ED Note-Physicianon 01-22-20 ED Note-Physician Normal [facility] Comment on above: Result Comment: Elec tronically Signed By: Gustavo Yusuf DO.br\Date and Time Signed: 01/21/23 19:26 EDT ED Patient Education Noteon 01-21-2023 ED Patient Education Note Normal [facility] ED Patient Summaryon 023 ED Patient Summary Normal [facility] HEMATOLOGYOrdered By: SYSTEM SYSTEM on 01-21-2023 Basophils/100 [...] 5.1 E12/L Normal 4.3 - 5.9 E12/L [facility] HemeAutoSS WBC corrected for nucl RBC Auto (Bld) [#/Vol] 11.6 E9/L High 4.0 - 11.0 E9/L [facility] HemeAutoSS Hep Func Panelon 01-21-2023 Bilirubin.direct [Mass/Vol] 0.1 mg/dL Normal 0.1-0.4 [facility] Comment on above: Performed By: #### 2 347095, 7977657, 18261763, 01141467, 3269031, 9827007 ####[facility] [address] [place] [address] Bilirubin.indirect [Mass or moles/Vol] 0.8 mg/dL Normal 0.1-0.9 [facility] Comment on above: Performed By: #### 2 290937, 0451479, 72494432, 47790942, 5325570, 8250618 ####[facility] [address] [place] [address] Albumin [Mass/Vol] 3.9 g/dL Normal 3.3-5.0 [facility] Comment on above: Performed By: #### 2 265334, 1388396, 29301677, 20838248, 4586242, 9421595 ####[facility] [address] [place] [address] Albumin/Globulin (S) [Mass conc ratio] 1.0 Low 1.1-2.2 [facility] Comment on above: Performed By: #### 2 759924, 0549625, 44807280, 26308969, 1532987, 8050631 ####[facility] [address] [place] [address] ALP [Catalytic activity/Vol] 50 Int._Unit/L Normal 21-98 [facility] Comment on above: Performed By: #### 2 539714, 8615770, 32204546, 05801375, 2993195, 5788867 ####[facility] [address] [place] [address] ALT No additional P-5'-P [Catalytic activity/Vol] 23 Int._Unit/L Normal 6-46 [facility] Comment on above: Performed By: #### 2 280016, 9831943, 66562149, 90569949, 1946854, 0685960 ####[facility] [address] [place] [address] AST [Catalytic activity/Vol] 22 Int._Unit/L Normal 5-43 [facility] Comment on above: Performed By: #### 2 249045, 0808521, 44093076, 83754605, 5783622, 3430328 ####[facility] [address] [place] [address] Bilirubin [Mass/Vol] 0.9 mg/dL Normal 0.0-1.1 [facility] Comment on above: Performed By: #### 2 074674, 9307929, 06506872, 93875709, 0851257, 2870048 ####[facility] [address] [place] [address] Globulin (S) [Mass/Vol] 3.8 g/dL Normal 1.4-4.0 [facility] Comment on above: Performed By: #### 2 523813, 7496777, 54286010, 22453695, 5228828, 8733815 ####[facility] [address] [place] [address] Protein [Mass/Vol] 7.7 g/dL Normal 6.0-7.8 [facility] Comment on above: Performed By: #### 2 690955, 3583986, 92390991, 27595763, 6364048, 9143700 ####[address] [place] [address] Prison Recordson 01-21 Prison Records [id number]# 1.00CD:127 Normal [facility] Troponin 0 Hr.on 01-21-2023 Troponin I.cardiac [Mass/Vol] 25.50 pg/mL Normal 15.90-38.40 [facility] Comment on above: Result Comment: The 95% CI (Confidence Interval) PPV (Positive Predictive Value) for myocardial infarction in females is 38 pg/mL, in males 51 pg/mL. The results should be used in conjunction with clinical conditions of myocardial infarction.(Access High Sensitivity Troponin I Instructions For Use, [employer], December 2017) Performed By: #### 2 878295, 0588274, 35687335, 80039816, 8948776, 4126300 ####[address] [address] Troponin 3 Hr.on 01-21-2023 Troponin I.cardiac [Mass/Vol] 23.90 pg/mL Normal 15.90-38.40 [facility] Comment on above: Result Comment: The 95% CI (Confidence Interval) PPV (Positive Predictive Value) for myocardial infarction in females is 38 pg/mL, in males 51 pg/mL. The results should be used in conjunction with clinical conditions of myocardial infarction.([employer] High Sensitivity Troponin I Instructions For Use, [employer], December 2017) Performed By: #### 1 8015570 ####[address] [address] UA With Cult Reflexon 2022 Bilirubin Ql (U) Negative Normal Negative [facility] Comment on above: Performed By: #### 1 3576118 ####[address] [address] Clarity (U) CLEAR Normal Clear [facility] Comment on above: Performed By: #### 1 1591163 ####[address] [address] Color (U) STRAW Abnormal Yellow [facility] Comment on above: Performed By: #### 1 8676954 ####[address] [address] Epithelial cells.squamous LM.HPF (Urine sed) [#/Area] 0-2 Normal 0-[address] [facility] Comment on above: Performed By: #### 1 7972608 ####[place] [address] [address] Glucose Test strip (U) [Mass/Vol] Negative Normal Negative [facility] Comment on above: Performed By: #### 1 6304008 ####[address] [address] Hemoglobin Ql (U) Negative Normal Negative [facility] Comment on above: Performed By: #### 1 2004550 ####[address] [address] Ketones (U) [Mass/Vol] Negative Normal Negative [facility] Comment on above: Performed By: #### 1 6173197 ####[address] [address] [place].plasma/[place].R BC (Bld) [Mass ratio] 0-3 Normal 0-3 [facility] Comment on above: Performed By: #### 1 1457628 ####[address] [address] Nitrite Ql (U) Negative Normal Negative [facility] Comment on above: Performed By: #### 1 9483610 ####[address] [address] pH (U) 6.0 [pH] Invalid Interpretation Code 5.0-9.0 [facility] Comment on above: Performed By: #### 1 2748832 ####[address] [address] Protein (U) [Mass/Vol] Negative Normal Negative [facility] Comment on above: Performed By: #### 1 5497135 ####[address] [address] Specific gravity (U) [Rel density] 1.010 Invalid Interpretation Code 1.005-1.030 [facility] Comment on above: Performed By: #### 1 1165452 ####[address] [address] Type of Urine collection method Clean Catch Normal [facility] Comment on above: Performed By: #### 1 3224792 ####[facility] [address] [place] [address] Urobilinogen Qn (U) 0.2 {Lei'U}/dL Normal 0.0-1.0 [facility] Comment on above: Performed By: #### 1 0813184 ####[facility] [address] [place] [address] WBC Auto Ql (U) Negative Normal Negative [facility] Comment on above: Performed By: #### 1 6114783 ####[facility] [address] [place] [address] WBC LM.HPF (Urine sed) [#/Area] 0-5 Normal 0-5 [facility] Comment on above: Performed By: #### 1 4260249 ####[facility] [address] [place] [address] URINALYSISOrdered By: Karen Vergara on 01-21-2023 Bilirubin [...] PM) Normal Negative [facility] UA Auto SS [place].plasma/[place].R BC (Bld) [Mass ratio] 0-3 /HPF Normal 0-3/HPF [facility] UA Au to SS Nitrite Ql (U) Negative (01/21/23 4:41 PM) Normal Negative [facility] UA Auto SS pH (U) 6.0 *NA* (01/21/23 4:41 PM) Invalid Interpretation Code 5.0 - 9.0 [facility] UA Auto SS Protein (U) [Mass/Vol] Negative (01/21/23 4:41 PM) Normal Negative [facility] UA Auto SS Specific gravity (U) [Rel density] 1.010 *NA* (01/21/23 4:41 PM) Invalid Interpretation Code 1.005 - 1.030 [facility] UA Auto SS UA Spec Desc Clean Catch (01/21/23 4:41 PM) Normal [facility] UA Auto SS Urobilinogen Qn (U) 0.7999466 {Lei'U}/dL Normal 0.0 - 1.0 EU/dL [facility] UA Auto SS WBC Auto Ql (U) Negative (01/21/23 4:41 PM) Normal Negative [facility] UA Auto SS WBC LM.HPF (Urine sed) [#/Area] 0-5 /HPF Normal 0-5/HPF [facility] UA Auto SS XR Chest Single Viewon 01-21 XR Chest Single View Normal [facility] eGFRon 01-21-2023 GFR/1.73 sq M.predicted among non-blacks MDRD (S/P/Bld) [Vol rate/Area] 62 mL/min/1.73 m2 Normal >=59 [facility] Comment on above: Order Comment: Order added by Discern Expert. Result Comment: Corporate [employer]iter earnest kidney disease could be indicated at eGFR's of less than 60 mL/min/1.73m2. Kidney failure is indicated at less than 15 mL/min/1.73m2. Performed By: #### 2 463879, 4461199, 89969363, 01845590, 9253637, 8458719 ####[facility] [address] [place] [address] Discharge Instructionson Discharge Instructions [id number] .00CD:127 Normal [facility] Capillary Glucose POCon 12-23 Glucose [Mass/Vol] 117 mg/dL High 55-99 [facility] Comment on above: Result Comment: Yazmin bri Meter Performed By: #### 2 63827322 ####[facility] [address] [place] [address] Family Medicine Office/Clini c Noteon 01-15-2023 Family Medicine Office/Clinic Note Normal [facility] Comment on above: Result Comment: Elec tronically Signed By: SHAISTA POTTS, Dennise.candice\Date and Time Signed: 01/15/23 16:46 EDT Capillary Glucose POCon 12-23 Glucose [Mass/Vol] 121 mg/dL High 55-99 [facility] Comment on above: Result Comment: Yazmin bri Meter Performed By: #### 2 67765375 ####[facility] [address] [place] [address] Capillary Glucose POCon 12-23 Glucose [Mass/Vol] 127 mg/dL High 55-[address] [place] [address] Comment on above: Result Comment: Yazmin bri Meter Performed By: #### 2 59332026 ####[facility] [address] [place] [address] Capillary Glucose POCon 12-22 Glucose [Mass/Vol] 104 mg/dL High 55-[address] [place] [address] Comment on above: Result Comment: Yazmin bri Meter Performed By: #### 2 75156952 ####[facility] [address] [place] [address] Capillary Glucose POCon 12-22 Glucose [Mass/Vol] 121 mg/dL High 55-[address] [place] [address] Comment on above: Result Comment: Yazmin bri Meter Performed By: #### 2 66143672 ####[facility] [address] [place] [address] Capillary Glucose POCon 12-22 Glucose [Mass/Vol] 110 mg/dL High 55-99 [facility] Comment on above: Result Comment: Yazmin bri Meter Performed By: #### 2 36300608 ####[facility] [address] [place] [address] Capillary Glucose POCon 12-22 Glucose [Mass/Vol] 119 mg/dL High 55-99 [facility] Comment on above: Result Comment: Yazmin bri Meter Performed By: #### 2 99313425 ####[facility] [address] [place] [address] Capillary Glucose POCon 12-22 Glucose [Mass/Vol] 141 mg/dL High 55-99 [facility] Comment on above: Result Comment: Yazmin bri Meter Performed By: #### 2 41972298 ####[facility] [address] [place] [address] Capillary Glucose POCon 12-22 Glucose [Mass/Vol] 104 mg/dL High 55-99 [facility] Comment on above: Result Comment: Yazmin bri Meter Performed By: #### 2 42460615 ####[facility] [address] [place] [address] BMPon 12-30-2022 Calcium [Mass/Vol] 9.1 mg/dL Normal 8.9-11.1 [facility] Comment on above: Performed By: #### 7 64972734, 7079689, 04792771 ####[facility] [address] [place] [address] Anion gap [Moles/Vol] 18 mmol/L High 6-16 [facility] Comment on above: Performed By: #### 7 65838996, 9625767, 40119612 ####[facility] [address] [place] [address] Chloride [Moles/Vol] 91 mmol/L Low 101-111 [facility] Comment on above: Performed By: #### 7 38107067, 2746036, 99309403 ####[facility] [address] [place] [address] CO2 [Moles/Vol] 30 mmol/L Normal 21-31 [facility] Comment on above: Performed By: #### 7 00468845, 4835607, 85438150 ####[facility] [address] [place] [address] Creatinine [Mass/Vol] 1.3 mg/dL Normal 0.5-1.3 [facility] Comment on above: Performed By: #### 7 94133071, 7422387, 66223977 ####[facility] [address] [place] [address] Glucose [Mass/Vol] 171 mg/dL Normal 55-199 [facility] Comment on above: Result Comment: If t his glucose result represents a fasting glucose, interpretation should refer to the following reference range: 55-99 mg/dL Performed By: #### 7 85371058, 1974560, 09137263 ####[facility] [address] [place] [address] Potassium [Moles/Vol] 4.2 mmol/L Normal 3.5-5.3 [facility] Comment on above: Performed By: #### 7 13160960, 5571709, 78155392 ####[facility] [address] [place] [address] Sodium [Moles/Vol] 135 mmol/L Normal 135-145 [facility] Comment on above: Performed By: #### 7 14779424, 8871277, 65338999 ####[facility] [address] [place] [address] Urea nitrogen [Mass/Vol] 36 mg/dL High 5-21 [facility] Comment on above: Performed By: #### 7 54338009, 7831413, 10085182 ####[facility] [address] [place] [address] Urea nitrogen/Creatinine [Mass ratio] 28 No Units High 10-20 [facility] Comment on above: Performed By: #### 7 85790803, 9796122, 51696383 ####[facility] [address] [place] [address] GxnW2ssp 12-30-2022 HbA1c (Bld) [Mass fraction] 6.9 % High <=5.9 [facility] Comment on above: Performed By: #### 7 36355232, 9119932, 16794907 ####[facility] [address] [place] [address] eGFRon 12-30-2022 GFR/1.73 sq M.predicted among non-blacks MDRD (S/P/Bld) [Vol rate/Area] 56 mL/min/1.73 m2 Low >=59 [facility] Comment on above: Order Comment: Order added by Discern Expert. Result Comment: Corporate Rec[employer]iter earnest kidney disease could be indicated at eGFR's of less than 60 mL/min/1.73m2. Kidney failure is indicated at less than 15 mL/min/1.73m2. Performed By: #### 7 53987647, 8512477, 86383556 ####[facility] [address] [place] [address] Capillary Glucose POCon 08-0 Glucose [Mass/Vol] 141 mg/dL High 55-99 [facility] Comment on above: Result Comment: Yazmin bri Meter Performed By: #### 2 01116452 ####[facility] [address] [place] [address] Capillary Glucose POCon 08-0 Glucose [Mass/Vol] 101 mg/dL High 55-99 [facility] Comment on above: Result Comment: Yazmin bri Meter Performed By: #### 2 79904151 ####[facility] [address] [place] [address] C Blood Charcoalon 3 Blood Culture Charcoal Normal [facility] Comment on above: Performed By: #### 1 6070333 ####[facility] [address] [place] [address] Capillary Glucose POCon 08-0 Glucose [Mass/Vol] 135 mg/dL High 55-99 [facility] Comment on above: Result Comment: Yazmin bri Meter Performed By: #### 2 81748321 ####[facility] [address] [place] [address] Capillary Glucose POCon 08-0 Glucose [Mass/Vol] 110 mg/dL High 55-99 [facility] Comment on above: Result Comment: Yazmin bri Meter Performed By: #### 2 51639688 ####[facility] [address] [place] [address] Consultation Noteon 12-24-19 Consultation Note Normal [facility] Comment on above: Result Comment: Elec tronically Signed By: Marcus POTTS, [place]\.br\Date and Time Signed: 12/23/22 07:33 EDT Family Medicine Office/Clini c Noteon 12-23-2022 Family Medicine Office/Clinic Note Normal [facility] Comment on above: Result Comment: Elec tronically Signed By: SHAISTA POTTS, Donta\.br\Date and Time Signed: 12/22/22 22:31 EDT C Blood Charcoalon Blood Culture Charcoal Normal [facility] Comment on above: Performed By: #### 1 1473469 ####[facility] [address] [place] [address] U Legi Agon 12-22-2022 L. pneumophila 1 Ag IA Ql (U) Negative Invalid Interpretation Code Negative [facility] Comment on above: Result Comment: Pres umptive negative for L. pneumophila serogroup 1 antigen in urine,suggesting no recent or current infection. Legionnaires' diseasecannot be ruled out since other serogroups and species may also causedisease.Performed at: [address] [id number] MD Tyler Gurrola Performed By: #### 2 769769 ####[facility] [address] [place] [address] C Urineon 12-21-2022 Bacteria identified Cx Nom (U) Normal [facility] Comment on above: Performed By: #### 1 3058985, 1862822 ####[facility] [address] [place] [address] Capillary Glucose POCon 11-23 Glucose [Mass/Vol] 134 mg/dL High 55-99 [facility] Comment on above: Result Comment: Yazmin bri Meter Performed By: #### 2 03489830 ####[facility] [address] [place] [address] Auto DiffOrdered By: SYSTEM SYSTEM on 12-20-2022 Basophils/100 WBC (Bld) 0.5 % Normal 0.0-2.0 [facility] HemeAutoSS Comment on above: Order Comment: Order Added by Discern Expert. Performed By: #### 2 620816, 1838601, 13303009, 8173579 ####[address] [address] Basophils/Leukocytes Auto (Bld) [Pure # fraction] 0.0 E9/L Normal 0.0-0.2 [facility] HemeAutoSS Comment on above: Order Comment: Order Added by Bethany Expert. Performed By: #### 2 937116, 5390102, 10784315, 6855022 ####[address] [address] Eosinophils/100 WBC (Bld) 7.9 % Normal 0.0-8.0 [facility] HemeAutoSS Comment on above: Order Comment: Order Added by Bethany Expert. Performed By: #### 2 174208, 7647982, 57138217, 1286221 ####[address] [address] Eosinophils/Leukocytes Auto (Bld) [Pure # fraction] 0.8 E9/L High 0.0-0.5 [facility] HemeAutoSS Comment on above: Order Comment: Order Added by Bethany Expert. Performed By: #### 2 922430, 3326733, 22203828, 6290309 ####[address] [address] Lymphocytes/100 WBC (Bld) 9.5 % Low 14.0-50.0 [facility] HemeAutoSS Comment on above: Order Comment: Order Added by Bethany Expert. Performed By: #### 2 939993, 3241052, 90993262, 8394855 ####[address] [address] Lymphocytes/Leukocytes Auto (Bld) [Pure # fraction] 1.0 E9/L Normal 1.0-4.0 [facility] HemeAutoSS Comment on above: Order Comment: Order Added by Discern Expert. Performed By: #### 2 036274, 5877017, 66097415, 7322098 ####[address] [address] Monocytes/100 WBC (Bld) 7.6 % Normal 4.0-14.0 [facility] HemeAutoSS Comment on above: Order Comment: Order Added by Discern Expert. Performed By: #### 2 265910, 0311646, 44559786, 7020272 ####[address] [address] Monocytes/Leukocytes Auto (Bld) [Pure # fraction] 0.8 E9/L Normal 0.2-1.0 [facility] HemeAutoSS Comment on above: Order Comment: Order Added by Discern Expert. Performed By: #### 2 630983, 4966527, 32685157, 9897891 ####[address] [address] Neutrophils/100 WBC (Bld) 74.5 % Normal 36.0-75.0 [facility] HemeAutoSS Comment on above: Order Comment: Order Added by Bethany Expert. Performed By: #### 2 089779, 9760145, 20648462, 1893376 ####[facility] [address] [address] Neutrophils/Leukocytes Auto (Bld) [Pure # fraction] 7.7 E9/L High 2.0-7.5 [facility] HemeAutoSS Comment on above: Order Comment: Order Added by Discern Expert. Performed By: #### 2 584062, 8113807, 01225593, 0238662 ####[place] [address] [address] BMPOrdered By: SYSTEM SYSTEM on 12-20-2022 Anion gap [Moles/Vol] 8 mmol/L Normal 6-16 [facility] C Remisol Comment on above: Performed By: #### 2 797490, 8754502, 58254850, 1502531 ####[place] [address] [address] Calcium [Mass/Vol] 7.9 mg/dL Low 8.9-11.1 FT R emisol Comment on above: Performed By: #### 2 394836, 9324007, 13657937, 8396809 ####[facility] [address] [place] [address] Chloride [Moles/Vol] 105 mmol/L Normal 101-111 [facility] Remisol Comment on above: Performed By: #### 2 737493, 2544875, 89111165, 2844656 ####[facility] [address] [place] [address] CO2 [Moles/Vol] 25 mmol/L Normal 21-31 [facility] Ashwin luanne Comment on above: Performed By: #### 2 345284, 9666752, 44513611, 8081287 ####[address] [address] Creatinine [Mass/Vol] 1.0 mg/dL Normal 0.5-1.3 FT C Remisol Comment on above: Performed By: #### 2 130084, 9311968, 67244043, 5253665 ####[facility] [address] [place] [address] Glucose [Mass/Vol] 106 mg/dL Normal 55-199 [facility] emisol Comment on above: Result Comment: If t his glucose result represents a fasting glucose, interpretation should refer to the following reference range: 55-99 mg/dL Performed By: #### 2 409975, 3857748, 57811075, 9786626 ####[facility] [address] [address] Potassium [Moles/Vol] 4.4 mmol/L Normal 3.5-5.3 [facility] C Remisol Comment on above: Performed By: #### 2 723949, 0927187, 10709542, 4393886 ####[address] [address] Sodium [Moles/Vol] 134 mmol/L Low 135-145 [facility] emisol Comment on above: Performed By: #### 2 254992, 5914101, 38344875, 2840773 ####[facility] [address] [place] [address] Urea nitrogen [Mass/Vol] 22 mg/dL High 5-21 [facility] Remisol Comment on above: Performed By: #### 2 410198, 7720749, 76700546, 6624472 ####[address] [place] [address] BMPon 12-20-2022 Urea nitrogen/Creatinine [Mass ratio] 22 No Units High 10-20 [facility] Comment on above: Performed By: #### 2 965777, 9415006, 83330169, 5613069 ####[address] [address] CBC w/ Auto DiffOrdered By: Bony Hdez on 12-20-2022 Erythrocyte distribution width (RBC) [Ratio] 14.7 % High 10.9-14.2 [facility] HemeAutoSS Comment on above: Performed By: #### 2 251691, 3615321, 85765120, 5407255 ####[address] [address] Hematocrit (Bld) [Volume fraction] 34.6 % Low 37.7-49.0 [facility] HemeAutoSS Comment on above: Performed By: #### 2 848729, 1685237, 52421866, 6422535 ####[address] [address] Hemoglobin (Bld) [Mass/Vol] 11.7 g/dL Low 13.5-17.5 [facility] HemeAutoSS Comment on above: Performed By: #### 2 897302, 9635125, 83747856, 8809184 ####[address] [address] MCH (RBC) [Entitic mass] 28.6 pg Normal 27.0-34.0 [facility] HemeAutoSS Comment on above: Performed By: #### 2 998546, 3578445, 71982515, 6532397 ####[facility] [address] [address] MCHC (RBC) [Mass/Vol] 33.7 g/dL Normal 31.4-36.0 [facility] C HemeAutoSS Comment on above: Performed By: #### 2 300526, 4834607, 71802977, 0548221 ####[place] [address] MCV (RBC) [Entitic vol] 84.7 fL Normal 80.0-100.0 F [facility] HemeAutoSS Comment on above: Performed By: #### 2 833913, 8365266, 16284357, 5792268 ####[place] [address] Platelet mean volume (Bld) [Entitic vol] 9.5 fL Normal 6.4-10.8 [facility] HemeAutoSS Comment on above: Performed By: #### 2 989772, 3687158, 76620383, 6130954 ####[address] Platelets (Bld) [#/Vol] 216.0 E9/L Normal 150.0-500.0 [facility] HemeAutoSS Comment on above: Performed By: #### 2 991784, 3676180, 50915097, 8986962 ####[place] [address] RBC (Bld) [#/Vol] 4.1 E12/L Low 4.3-5.9 FT HemeAutoSS Comment on above: Performed By: #### 2 413895, 5702548, 71714020, 5795136 ####[place] 8846857 WBC corrected for nucl RBC Auto (Bld) [#/Vol] 10.3 E9/L Normal 4.0-11.0 FT HemeAutoSS Comment on above: Performed By: #### 2 834886, 9902956, 00166179, 0784681 ####[place] [id number] CHEMISTRYOrdered By: Lab ROP User on 12-20-2022 Glucose [Mass/Vol] 109 mg/dL High 55 - 99 mg/dL [facility] POC Subsection Comment on above: Result Comment: Gareth GARDINER POC Device SN [id number] Invalid Interpretation Code [facility] POC Subsection POC User ID [id number] Invalid Interpretation Code [facility] POC Subsection POC Username SAMANTHA LAMBERT Invalid Interpretation Code [facility] POC Subsection CHEMISTRYOrdered By: SYSTEM SYSTEM on 12-20-2022 Urea nitrogen/Creatinine [Mass ratio] 22 mg/mg High 10 - 20 [facility] Remisol Capillary Glucose POCon 11-23 Glucose [Mass/Vol] 198 mg/dL High 55-99 [facility] Comment on above: Result Comment: Yazmin bri Meter Performed By: #### 2 [id number] ####[facility] [address] [place] [address] Glucose [Mass/Vol] 109 mg/dL High 55-99 [facility] Comment on above: Result Comment: Gareth GARDINER Performed By: #### 2 [id number] ####[facility] [address] [place] [address] Discharge Documentationon Discharge Documentation [id number]#1 .00CD:127 Normal [facility] Inpatient Patient Summaryon 12-20-2022 Inpatient Patient Summary Normal [facility] Message from Medicareon 11-23 Message from Medicare [id number]# 1.00CD:127 Normal [facility] Monitor Recordon 12-20-2022 Monitor Record [id number]# 1.00CD:127 Normal [facility] Monitor Record [id number]# 1.00CD:127 Normal [facility] Monitor Record [id number]# 1.00CD:127 Normal [facility] Progress Note-Nurseon 2022 Progress Note-Nurse SBAR report called fanta Robert. Patient was transferred into wheelchair x2 stand pivot. Patient discharged to [facility] room 17. Transport by Samantha Lambert POCT. Normal [facility] Transfer Documentson 023 Transfer Documents [id number]#1 .00CD:127 Normal [facility] eGFROrdered By: SYSTEM SYSTE M on 12-20-2022 GFR/1.73 sq M.predicted among non-blacks MDRD (S/P/Bld) [Vol rate/Area] 77 mL/min/1.73 m2 Normal >=59 [facility] Chem S Comment on above: Order Comment: Order added by Discern Expert. Result Comment: Corporate Recruiter earnest kidney disease could be indicated at eGFR's of less than 60 mL/min/1.73m2. Kidney failure is indicated at less than 15 mL/min/1.73m2. Performed By: #### 2 332275, 5100297, 94737039, 5758194 ####[facility] [address] [place] [address] Auto Diffon 12-19-2022 Basophils/100 WBC (Bld) 0.4 % Normal 0.0-2.0 [facility] Comment on above: Order Comment: Order Added by Discern Expert. Performed By: #### 1 2893915, 6278218, 9627300, 1199268 ####[facility] [address] [place] [address] Basophils/Leukocytes Auto (Bld) [Pure # fraction] 0.0 E9/L Normal 0.0-0.2 [facility] Comment on above: Order Comment: Order Added by Discern Expert. Performed By: #### 1 6729266, 9724394, 2904481, 4339561 ####[facility] [address] [place] [address] Eosinophils/100 WBC (Bld) 4.2 % Normal 0.0-8.0 [facility] Comment on above: Order Comment: Order Added by Discern Expert. Performed By: #### 1 2973738, 3621545, 7377816, 5902641 ####[facility] [address] [place] [address] Eosinophils/Leukocytes Auto (Bld) [Pure # fraction] 0.6 E9/L High 0.0-0.5 [facility] Comment on above: Order Comment: Order Added by Discern Expert. Performed By: #### 1 1527264, 8781926, 0832327, 8405741 ####[place] [address] [place] [address] Lymphocytes/100 WBC (Bld) 7.3 % Low 14.0-50.0 [facility] Comment on above: Order Comment: Order Added by Discern Expert. Performed By: #### 1 1612869, 4972465, 9416000, 4963027 ####[address] [address] Lymphocytes/Leukocytes Auto (Bld) [Pure # fraction] 1.0 E9/L Normal 1.0-4.0 [facility] Comment on above: Order Comment: Order Added by Discern Expert. Performed By: #### 1 2553556, 6497003, 8969839, 7478601 ####[address] [address] Monocytes/100 WBC (Bld) 6.5 % Normal 4.0-14.0 [facility] Comment on above: Order Comment: Order Added by Discern Expert. Performed By: #### 1 7492304, 1233982, 2208095, 1718552 ####[facility] [address] [place] [address] Monocytes/Leukocytes Auto (Bld) [Pure # fraction] 0.9 E9/L Normal 0.2-1.0 [facility] Comment on above: Order Comment: Order Added by Discern Expert. Performed By: #### 1 8267966, 3282679, 3312912, 1172660 ####[place] [address] [place] [address] Neutrophils/100 WBC (Bld) 81.6 % High 36.0-75.0 [facility] Comment on above: Order Comment: Order Added by Discern Expert. Performed By: #### 1 8798233, 2258726, 8103112, 4968923 ####[facility] [address] [place] [address] Neutrophils/Leukocytes Auto (Bld) [Pure # fraction] 10.7 E9/L High 2.0-7.5 [facility] Comment on above: Order Comment: Order Added by Discern Expert. Performed By: #### 1 0803527, 6981059, 8456481, 1172670 ####[facility] [address] [place] [address] BMPon 12-19-2022 Anion gap [Moles/Vol] 11 mmol/L Normal 6-16 [facility] Comment on above: Performed By: #### 1 7225675, 2531212, 0371771, 3210158 ####[facility] [address] [place] [address] Calcium [Mass/Vol] 8.5 mg/dL Low 8.9-11.1 [facility] Comment on above: Performed By: #### 1 2331191, 0077126, 0474437, 0484526 ####[facility] [address] [place] [address] Chloride [Moles/Vol] 103 mmol/L Normal 101-111 [facility] Comment on above: Performed By: #### 1 5504964, 2577158, 0612803, 3213273 ####[facility] [address] [place] [address] CO2 [Moles/Vol] 28 mmol/L Normal 21-31 [facility] Comment on above: Performed By: #### 1 4468162, 6014340, 2844223, 9769110 ####[facility] [address] [place] [address] Creatinine [Mass/Vol] 1.2 mg/dL Normal 0.5-1.3 [facility] Comment on above: Performed By: #### 1 7934706, 9084690, 9268613, 9882643 ####[facility] [address] [place] [address] Glucose [Mass/Vol] 86 mg/dL Normal 55-199 [facility] Comment on above: Result Comment: If t his glucose result represents a fasting glucose, interpretation should refer to the following reference range: 55-99 mg/dL Performed By: #### 1 3409469, 9441832, 4282909, 7398417 ####[facility] [address] [place] [address] Potassium [Moles/Vol] 4.5 mmol/L Normal 3.5-5.3 [facility] Comment on above: Performed By: #### 1 8346527, 1496832, 4027871, 8449645 ####[facility] [address] [place] [address] Sodium [Moles/Vol] 137 mmol/L Normal 135-145 [facility] Comment on above: Performed By: #### 1 3985266, 0302970, 3726255, 0899282 ####[facility] [address] [place] [address] Urea nitrogen [Mass/Vol] 35 mg/dL High 5-21 [facility] Comment on above: Performed By: #### 1 0334276, 0519105, 4319894, 0353806 ####[facility] [address] [place] [address] Urea nitrogen/Creatinine [Mass ratio] 29 No Units High 10-20 [facility] Comment on above: Performed By: #### 1 3105032, 7467556, 7675082, 7832881 ####[facility] [address] [place] [address] CBC w/ Auto Diffon 3 Erythrocyte distribution width (RBC) [Ratio] 15.0 % High 10.9-14.2 [facility] Comment on above: Performed By: #### 1 1035881, 2674038, 4615450, 4184181 ####[facility] [address] [place] [address] Hematocrit (Bld) [Volume fraction] 38.4 % Normal 37.7-49.0 [facility] Comment on above: Performed By: #### 1 3303048, 0752003, 8291159, 5917949 ####[facility] [address] [place] [address] Hemoglobin (Bld) [Mass/Vol] 12.7 g/dL Low 13.5-17.5 [facility] Comment on above: Performed By: #### 1 8505182, 3872256, 2015826, 3302408 ####[place] [address] [place] [address] MCH (RBC) [Entitic mass] 27.9 pg Normal 27.0-34.0 [facility] Comment on above: Performed By: #### 1 9187815, 1408184, 6708790, 0968853 ####[place] 8[address]857 MCHC (RBC) [Mass/Vol] 32.9 g/dL Normal 31.4-36.0 [facility] Comment on above: Performed By: #### 1 8621525, 0472122, 4379974, 2333206 ####[place] [address] [place] [address] MCV (RBC) [Entitic vol] 84.8 fL Normal 80.0-100.0 [facility] Comment on above: Performed By: #### 1 6180247, 6463019, 0504218, 7001649 ####[facility] [address] [place] [address] Platelet mean volume (Bld) [Entitic vol] 9.5 fL Normal 6.4-10.8 [facility] Comment on above: Performed By: #### 1 9861529, 1983202, 2920298, 7228848 ####[place] [address] [place] [address] Platelets (Bld) [#/Vol] 230.0 E9/L Normal 150.0-500.0 [facility] Comment on above: Performed By: #### 1 2390050, 8742048, 9775767, 0185881 ####[facility] [address] [place] [address] RBC (Bld) [#/Vol] 4.5 E12/L Normal 4.3-5.9 [facility] Comment on above: Performed By: #### 1 1865630, 7453191, 2159107, 0119779 ####[facility] [address] [place] [address] WBC corrected for nucl RBC Auto (Bld) [#/Vol] 13.1 E9/L High 4.0-11.0 [facility] Comment on above: Performed By: #### 1 0276276, 2595451, 5319704, 0485315 ####[facility] [address] [place] [address] CHEMISTRYOrdered By: Lab ROP User on 12-19-2022 Glucose [Mass/Vol] 210 mg/dL High 55 - 99 mg/dL [facility] POC Subsection Comment on above: Result Comment: Gareth guerrero RN/ POC Device SN [id number] Invalid Interpretation Code FT POC Subsection POC User ID [id number] Invalid Interpretation Code [facility] POC Subsection POC Username JODITRESASHER Armstrong Invalid Interpretation Code [facility] POC Subsection Glucose [Mass/Vol] 111 mg/dL High 55 - 99 mg/dL [facility] POC Subsection Comment on above: Result Comment: Gareth guerrero RN/ POC Device SN [id number] Invalid Interpretation Code FT POC Subsection POC User ID [id number] Invalid Interpretation Code [facility] POC Subsection POC Username KELLEN HERNANDEZ Invalid Interpretation Code [facility] POC Subsection CHEMISTRYOrdered By: SYSTEM SYSTEM on [...] 1.2 mg/dL Normal 0.5 - 1.3 mg/dL [facility] Remisol GFR/1.73 sq M.predicted among non-blacks MDRD (S/P/Bld) [Vol rate/Area] 62 mL/min/1.73 m2 Normal >=59mL/min/ 1.73 m2 [facility] Chem S Glucose [Mass/Vol] 86 mg/dL Normal 55 - 199 mg/dL [facility] Remisol Potassium [Moles/Vol] 4.5 mmol/L Normal 3.5 - 5.3 mmol/L [facility] Remisol Sodium [Moles/Vol] 137 mmol/L Normal 135 - 145 mmol/L [facility] Remisol Urea nitrogen [Mass/Vol] 35 mg/dL High 5 - 21 mg/dL [facility] Remisol Urea nitrogen/Creatinine [Mass ratio] 29 mg/mg High 10 - 20 [facility] Remisol Capillary Glucose POCon 11-22 Glucose [Mass/Vol] 210 mg/dL High 55-99 [facility] Comment on above: Result Comment: Gareth GARDINER Performed By: #### 2 10331844 ####[facility] [address] [place] [address] Glucose [Mass/Vol] 111 mg/dL High 55-99 [facility] Comment on above: Result Comment: Gareth GARDINER Performed By: #### 2 59845547 ####[facility] [address] [place] [address] Glucose [Mass/Vol] 201 mg/dL High 55-99 [facility] Comment on above: Result Comment: Gareth GARDINER Performed By: #### 2 87897875 ####[facility] [address] [place] [address] Glucose [Mass/Vol] 93 mg/dL Normal 55-99 [facility] Comment on above: Result Comment: Gareth GARDINER Performed By: #### 2 31955609 ####[facility] [address] [place] [address] HEMATOLOGYOrdered By: SYSTEM SYSTEM on 12-19-2022 Basophils/100 [...] 9.5 fL Normal 6.4 - 10.8 fL [facility] HemeAutoSS Platelets (Bld) [#/Vol] 230.0 E9/L Normal 150. 0 - 500.0 E9/L [facility] HemeAutoSS RBC (Bld) [#/Vol] 4.5 E12/L Normal 4.3 - 5.9 E12/L [facility] HemeAutoSS WBC corrected for nucl RBC Auto (Bld) [#/Vol] 13.1 E9/L High 4.0 - 11.0 E9/L [facility] HemeAutoSS Monitor Recordon 12-19-2022 Monitor Record [id number]# 1.00CD:127 Normal [facility] Monitor Record [id number]# 1.00CD:127 Normal [facility] Progress Note-Physicianon Progress Note-Physician Normal [facility] Comment on above: Result Comment: Elec tronically Signed By: MICHAEL POTTS, Jamir\.br\Date and Time Signed: 12/19/22 09:47 EDT eGFRon 12-19-2022 GFR/1.73 sq M.predicted among non-blacks MDRD (S/P/Bld) [Vol rate/Area] 62 mL/min/1.73 m2 Normal >=59 [facility] Comment on above: Order Comment: Order added by Discern Expert. Result Comment: Corporate Recruiter earnest kidney disease could be indicated at eGFR's of less than 60 mL/min/1.73m2. Kidney failure is indicated at less than 15 mL/min/1.73m2. Performed By: #### 1 0129580, 0778368, 2715141, 8855396 ####[facility] [address] [place] [address] Auto Diffon 12-18-2022 Basophils/100 WBC (Bld) 0.4 % Normal 0.0-2.0 [facility] Comment on above: Order Comment: Order Added by Discern Expert. Performed By: #### 2 514420, 1434254 ####[facility] [address] [place] [address] Basophils/Leukocytes Auto (Bld) [Pure # fraction] 0.1 E9/L Normal 0.0-0.2 [facility] Comment on above: Order Comment: Order Added by Discern Expert. Performed By: #### 2 118551, 9541765 ####[address] [address] Eosinophils/100 WBC (Bld) 2.8 % Normal 0.0-8.0 [facility] Comment on above: Order Comment: Order Added by Discern Expert. Performed By: #### 2 099636, 5663608 ####[address] [address] Eosinophils/Leukocytes Auto (Bld) [Pure # fraction] 0.4 E9/L Normal 0.0-0.5 [facility] Comment on above: Order Comment: Order Added by Discern Expert. Performed By: #### 2 113203, 1134398 ####[address] [address] Lymphocytes/100 WBC (Bld) 9.0 % Low 14.0-50.0 [facility] Comment on above: Order Comment: Order Added by Discern Expert. Performed By: #### 2 612046, 4121085 ####[address] [address] Lymphocytes/Leukocytes Auto (Bld) [Pure # fraction] 1.3 E9/L Normal 1.0-4.0 [facility] Comment on above: Order Comment: Order Added by Discern Expert. Performed By: #### 2 214877, 5361307 ####[address] [address] Monocytes/100 WBC (Bld) 8.3 % Normal 4.0-14.0 [facility] Comment on above: Order Comment: Order Added by Discern Expert. Performed By: #### 2 685547, 1780013 ####[facility] [address] [place] [address] Monocytes/Leukocytes Auto (Bld) [Pure # fraction] 1.3 E9/L High 0.2-1.0 [facility] Comment on above: Order Comment: Order Added by Discern Expert. Performed By: #### 2 450452, 4950757 ####[address] [address] Neutrophils/100 WBC (Bld) 79.5 % High 36.0-75.0 [facility] Comment on above: Order Comment: Order Added by Discern Expert. Performed By: #### 2 732193, 4592668 ####[address] [address] Neutrophils/Leukocytes Auto (Bld) [Pure # fraction] 11.9 E9/L High 2.0-7.5 [facility] Comment on above: Order Comment: Order Added by Bethany Expert. Performed By: #### 2 116837, 8052393 ####[address] [address] Basophils/100 WBC (Bld) 0.6 % Normal 0.0-2.0 [facility] Comment on above: Order Comment: Order Added by Bethany Expert. Performed By: #### 1 2618605, 4716999, 77169647, 1252451, 49638685, 24509363, 5699065 ####[address] [address] Basophils/Leukocytes Auto (Bld) [Pure # fraction] 0.1 E9/L Normal 0.0-0.2 [facility] Comment on above: Order Comment: Order Added by Discern Expert. Performed By: #### 1 4888244, 2830031, 56348652, 4353723, 80916006, 81030288, 0626963 ####[address] [address] Eosinophils/100 WBC (Bld) 2.0 % Normal 0.0-8.0 [facility] Comment on above: Order Comment: Order Added by Bethany Expert. Performed By: #### 1 6951463, 5501726, 20339990, 5785766, 91148902, 25326831, 3547715 ####[facility] [address] [place] [address] Eosinophils/Leukocytes Auto (Bld) [Pure # fraction] 0.3 E9/L Normal 0.0-0.5 [facility] Comment on above: Order Comment: Order Added by Discern Expert. Performed By: #### 1 7709600, 3091184, 13543770, 5323545, 64409271, 30368439, 3733486 ####[place] [address] [place] [address] Lymphocytes/100 WBC (Bld) 7.6 % Low 14.0-50.0 [facility] Comment on above: Order Comment: Order Added by Discern Expert. Performed By: #### 1 3438197, 4865669, 05885023, 0241877, 22659588, 53743909, 2104653 ####[address] [address] Lymphocytes/Leukocytes Auto (Bld) [Pure # fraction] 1.3 E9/L Normal 1.0-4.0 [facility] Comment on above: Order Comment: Order Added by Discern Expert. Performed By: #### 1 2349572, 8099307, 76182757, 1398762, 69602206, 65635127, 3005899 ####[address] [address] Monocytes/100 WBC (Bld) 7.8 % Normal 4.0-14.0 [facility] Comment on above: Order Comment: Order Added by Discern Expert. Performed By: #### 1 6470384, 7079104, 46264495, 6470120, 35871774, 71835030, 8334767 ####[place] [address] [place] [address] Monocytes/Leukocytes Auto (Bld) [Pure # fraction] 1.3 E9/L High 0.2-1.0 [facility] Comment on above: Order Comment: Order Added by Discern Expert. Performed By: #### 1 1080875, 7771857, 53324781, 1175931, 62451015, 14347389, 0023877 ####[facility] [address] [place] [address] Neutrophils/100 WBC (Bld) 82.0 % High 36.0-75.0 [facility] Comment on above: Order Comment: Order Added by Discern Expert. Performed By: #### 1 6833084, 1963514, 78405072, 8709238, 30394410, 38040389, 7279334 ####[facility] [address] [place] [address] Neutrophils/Leukocytes Auto (Bld) [Pure # fraction] 13.7 E9/L High 2.0-7.5 [facility] Comment on above: Order Comment: Order Added by Discern Expert. Performed By: #### 1 5207090, 0391702, 49999082, 4567482, 73618597, 18585673, 2685256 ####[facility] [address] [place] [address] BMPon 12-18-2022 Creatinine [Mass/Vol] 1.6 mg/dL High 0.5-1.3 [facility] Comment on above: Performed By: #### 2 977061, 8858307, 2983894957, 05064328, 65884021 ####[facility] [address] [place] [address] Urea nitrogen [Mass/Vol] 47 mg/dL High 5-21 [facility] Comment on above: Performed By: #### 2 262897, 4407314, 8080815135, 33711831, 99376946 ####[facility] [address] [place] [address] Urea nitrogen/Creatinine [Mass ratio] 29 No Units High 10-20 [facility] Comment on above: Performed By: #### 2 574074, 1025806, 6602627683, 63745755, 99313570 ####[facility] [address] [place] [address] Anion gap [Moles/Vol] 12 mmol/L Normal 6-16 [facility] Comment on above: Performed By: #### 2 418764, 8363263, 4951988396, 01583063, 54086040 ####[facility] [address] [place] [address] Calcium [Mass/Vol] 8.7 mg/dL Low 8.9-11.1 [facility] Comment on above: Performed By: #### 2 245444, 5316307, 5378942616, 96633365, 56113881 ####[facility] [address] [place] [address] Chloride [Moles/Vol] 97 mmol/L Low 101-111 [facility] Comment on above: Performed By: #### 2 450383, 1678652, 8695437424, 95826868, 35386781 ####[facility] [address] [place] [address] CO2 [Moles/Vol] 32 mmol/L High 21-31 [facility] Comment on above: Performed By: #### 2 835974, 6434609, 7489160945, 55077192, 42390167 ####[facility] [address] [place] [address] Glucose [Mass/Vol] 131 mg/dL Normal 55-199 [facility] Comment on above: Result Comment: If t his glucose result represents a fasting glucose, interpretation should refer to the following reference range: 55-99 mg/dL Performed By: #### 2 477541, 8838571, 0522655576, 89610810, 12477768 ####[facility] [address] [place] [address] Potassium [Moles/Vol] 3.7 mmol/L Normal 3.5-5.3 [facility] Comment on above: Performed By: #### 2 652730, 9822874, 0649041260, 22860261, 55956377 ####[facility] [address] [place] [address] Sodium [Moles/Vol] 137 mmol/L Normal 135-145 [facility] Comment on above: Performed By: #### 2 603189, 1268668, 7119268371, 11470006, 45638070 ####[facility] [address] [place] [address] Creatinine [Mass/Vol] 1.8 mg/dL High 0.5-1.3 [facility] Comment on above: Performed By: #### 1 5523708, 2856664, 53821273, 6564983, 33757428, 98071868, 2241461 ####[facility] [address] [place] [address] Urea nitrogen [Mass/Vol] 49 mg/dL High 5-21 [facility] Comment on above: Performed By: #### 1 5778358, 2890634, 89071023, 0471583, 29457495, 07875536, 1549431 ####[facility] [address] [place] [address] Urea nitrogen/Creatinine [Mass ratio] 27 No Units High 10-20 [facility] Comment on above: Performed By: #### 1 6212495, 3845552, 35998457, 4104050, 41188135, 43320099, 4703681 ####[facility] [address] [place] [address] Anion gap [Moles/Vol] 18 mmol/L High 6-16 [facility] Comment on above: Performed By: #### 1 2162397, 8850923, 08041582, 6039335, 60216535, 20738179, 2486387 ####[facility] [address] [place] [address] Calcium [Mass/Vol] 9.3 mg/dL Normal 8.9-11.1 [facility] Comment on above: Performed By: #### 1 8315774, 9927143, 26573947, 3420104, 87538556, 77663904, 5121937 ####[facility] [address] [place] [address] Chloride [Moles/Vol] 93 mmol/L Low 101-[address] [facility] Comment on above: Performed By: #### 1 6221747, 2882715, 47721545, 7022699, 39013143, 18670314, 6921083 ####[facility] [address] [place] [address] CO2 [Moles/Vol] 29 mmol/L Normal 21-31 [facility] Comment on above: Performed By: #### 1 7024253, 9359061, 01062398, 1647712, 19737602, 44239119, 5488593 ####[facility] [address] [place] [address] Glucose [Mass/Vol] 137 mg/dL Normal 55-199 [facility] Comment on above: Result Comment: If t his glucose result represents a fasting glucose, interpretation should refer to the following reference range: 55-99 mg/dL Performed By: #### 1 4581632, 5152062, 50362253, 4162307, 26131999, 44021058, 8775389 ####[facility] [address] [place] [address] Potassium [Moles/Vol] 4.0 mmol/L Normal 3.5-5.3 [facility] Comment on above: Performed By: #### 1 2491475, 7289173, 29851588, 0418690, 50325103, 78573479, 5763652 ####[facility] [address] [place] [address] Sodium [Moles/Vol] 136 mmol/L Normal 135-145 [facility] Comment on above: Performed By: #### 1 7667108, 5866943, 17489293, 3997572, 16820245, 43341057, 8758345 ####[facility] [address] [place] [address] BNPon 12-18-2022 Int Ctr BNP Pass Normal [facility] Comment on above: Performed By: #### 1 5923540, 0702964, 51962894, 4011861, 16119984, 48283460, 5687819 ####[facility] [address] [place] [address] Natriuretic peptide B (Bld) [Mass/Vol] 219 pg/mL High 5-80 [facility] Comment on above: Performed By: #### 1 9506425, 8292678, 43347871, 4421441, 04236452, 81386650, 6935196 ####[facility] [address] [place] [address] CBC w/ Auto Diffon Erythrocyte distribution width (RBC) [Ratio] 14.8 % High 10.9-14.2 [facility] Comment on above: Performed By: #### 2 951061, 3728576 ####[address] [address] Hematocrit (Bld) [Volume fraction] 37.8 % Normal 37.7-49.0 [facility] Comment on above: Performed By: #### 2 654327, 3393653 ####[address] [address] Hemoglobin (Bld) [Mass/Vol] 12.7 g/dL Low 13.5-17.5 [facility] Comment on above: Performed By: #### 2 666901, 8747030 ####[address] [address] MCH (RBC) [Entitic mass] 28.3 pg Normal 27.0-34.0 [facility] Comment on above: Performed By: #### 2 027377, 3629194 ####[address] [address] MCHC (RBC) [Mass/Vol] 33.6 g/dL Normal 31.4-36.0 [facility] Comment on above: Performed By: #### 2 107422, 4482231 ####[address] [address] MCV (RBC) [Entitic vol] 84.2 fL Normal 80.0-100.0 [facility] Comment on above: Performed By: #### 2 548415, 8979567 ####[address] [address] Platelet mean volume (Bld) [Entitic vol] 9.2 fL Normal 6.4-10.8 [facility] Comment on above: Performed By: #### 2 959041, 7436292 ####[address] [address] Platelets (Bld) [#/Vol] 219.0 E9/L Normal 150.0-500.0 [facility] Comment on above: Performed By: #### 2 683196, 9475333 ####[address] [address] RBC (Bld) [#/Vol] 4.5 E12/L Normal 4.3-5.9 [facility] Comment on above: Performed By: #### 2 131420, 6167464 ####[address] [address] WBC corrected for nucl RBC Auto (Bld) [#/Vol] 15.0 E9/L High 4.0-11.0 [facility] Comment on above: Performed By: #### 2 370202, 7778733 ####[address] [address] Erythrocyte distribution width (RBC) [Ratio] 14.9 % High 10.9-14.2 [facility] Comment on above: Performed By: #### 1 5213231, 8968250, 78743446, 1945920, 69023170, 92404465, 5306831 ####[address] [address] Hematocrit (Bld) [Volume fraction] 42.8 % Normal 37.7-49.0 [facility] Comment on above: Performed By: #### 1 2582730, 2368238, 43241987, 2863241, 18508327, 86795077, 6858237 ####[facility] [address] [place] [address] Hemoglobin (Bld) [Mass/Vol] 14.3 g/dL Normal 13.5-17.5 [facility] Comment on above: Performed By: #### 1 9057664, 0740770, 06979885, 4061883, 60403611, 75914212, 2810351 ####[facility] [address] [place] [address] MCH (RBC) [Entitic mass] 28.1 pg Normal 27.0-34.0 [facility] Comment on above: Performed By: #### 1 1878745, 0082052, 56186070, 8554129, 39736496, 37628653, 2734035 ####[place] [address] [place] 6273257 MCHC (RBC) [Mass/Vol] 33.3 g/dL Normal 31.4-36.0 [facility] Comment on above: Performed By: #### 1 9016173, 8152755, 34161045, 4160349, 88026270, 32317122, 7280066 ####[facility] [address] [place] [address] MCV (RBC) [Entitic vol] 84.3 fL Normal 80.0-100.0 [facility] Comment on above: Performed By: #### 1 9991210, 5984514, 67955374, 7671523, 22109126, 07004845, 3394586 ####[facility] [address] [place] [address] Platelet mean volume (Bld) [Entitic vol] 9.8 fL Normal 6.4-10.8 [facility] Comment on above: Performed By: #### 1 7012029, 6839021, 72557278, 3183911, 59522782, 39687062, 4670268 ####[place] [address] [place] [address] Platelets (Bld) [#/Vol] 234.0 E9/L Normal 150.0-500.0 [facility] Comment on above: Performed By: #### 1 5230913, 4432007, 31696956, 3116583, 80013842, 90039462, 1378196 ####[facility] [address] [place] [address] RBC (Bld) [#/Vol] 5.1 E12/L Normal 4.3-5.9 [facility] Comment on above: Performed By: #### 1 1611376, 0701211, 71493132, 5870470, 66979866, 81511039, 8096226 ####[facility] [address] [place] [address] WBC corrected for nucl RBC Auto (Bld) [#/Vol] 16.7 E9/L High 4.0-11.0 [facility] Comment on above: Result Comment: Slid e reviewed by JENNIFER. Performed By: #### 1 4603567, 7314013, 27730547, 2218518, 92740395, 97526797, 8651327 ####[facility] [address] [place] [address] CHEMISTRYOrdered By: SYSTEM SYSTEM on 12-18-2022 Troponin [...] 44 mL/min/1.73 m2 Low >=59mL/min/ 1.73 m2 [facility] Chem S Glucose [Mass/Vol] 131 mg/dL Normal 55 - 199 mg/dL FT Remisol Potassium [Moles/Vol] 3.7 mmol/L Normal 3.5 - 5.3 mmol/L [facility] Remisol Procalcitonin 0.09 ng/mL Normal 0.00 - 0.50 ng/mL [facility] Remisol Sodium [Moles/Vol] 137 mmol/L Normal 135 - 145 mmol/L [facility] Remisol Troponin I.cardiac [Mass/Vol] 22.50 pg/mL Normal 15.90 - 38.40 pg/mL [facility] Remisol Urea nitrogen [Mass/Vol] 47 mg/dL High 5 - 21 mg/dL [facility] Remisol Urea nitrogen/Creatinine [Mass ratio] 29 mg/mg High 10 - 20 [facility] Remisol CHEMISTRYOrdered By: Yanet Apodaca on 12-18-2022 Troponin I.cardiac [Mass/Vol] 18.80 pg/mL Normal 15.90 - 38.40 pg/mL [facility] Natriuretic peptide B (Bld) [Mass/Vol] 219 pg/mL High 5 - 80 pg/mL [facility] HemeManSS CKon 12-18-2022 CK [Catalytic activity/Vol] 55 Int._Unit/L Normal 14-261 [facility] Comment on above: Performed By: #### 2 679995, 2978126, 4402732931, 96859850, 49998351 ####[facility] [address] [place] [address] COAGULATIONOrdered By: Rachael Apodaca on 12-18-2022 aPTT Coag (PPP) [Time] 30.6 s Normal 25.1 - 36.5 second(s) [facility] Auto Coag INR Coag (PPP) [Relative time] 1.1 {INR} Invalid Interpretation Code FT Auto Coag PT Coag (PPP) [Time] 12.5 s Normal 9.4 - 1 2.5 second(s) FT Auto Coag CT Head or Brain w/o Contras ton 12-18-2022 CT Head or Brain w/o Contrast Normal [facility] CT Spine Cervical w/o Contra ston 12-18-2022 CT Spine Cervical w/o Contrast Normal [facility] Capillary Glucose POCon 11-22 Glucose [Mass/Vol] 212 mg/dL High 55-99 [facility] Comment on above: Result Comment: Gareth GARDINER Performed By: #### 2 13082406 ####[facility] [address] [place] [address] Glucose [Mass/Vol] 97 mg/dL Normal 55-99 [facility] Comment on above: Result Comment: Yazmin bri Meter Performed By: #### 2 86398136 ####[facility] [address] [place] [address] Glucose [Mass/Vol] 119 mg/dL High 55-99 [facility] Comment on above: Result Comment: Gareth GARDINER Performed By: #### 2 21234855 ####[facility] [address] [place] [address] Glucose [Mass/Vol] 131 mg/dL High 55-99 [facility] Comment on above: Result Comment: Gareth GARDINER Performed By: #### 2 42816605 ####[facility] [address] [place] [address] Consent for Treatmenton 11-22 Consent for Treatment [id number]# 1.00CD:127 Normal [facility] ED Clinical Summaryon 2022 ED Clinical Summary Normal [facility] ED Note-Physicianon 12-19-19 23 ED Note-Physician Normal [facility] Comment on above: Result Comment: Elec tronically Signed By: Guilherme POTTS, Malcom\.br\Date and Time Signed: 12/18/22 04:33 EDT ED Patient Education Noteon 12-18-2022 ED Patient Education Note Normal [facility] ED Patient Summaryon 023 ED Patient Summary Normal [facility] ED Traumaon 12-18-2022 ED Trauma [id number]# 1.00CD:127 Normal [facility] HEMATOLOGYOrdered By: SYSTEM SYSTEM on 12-18-2022 Basophils/100 [...] 33.6 g/dL Normal 31.4 - 36.0 gm/dL [facility] HemeAutoSS MCV (RBC) [Entitic vol] 84.2 fL Normal 80.0 - 100.0 fL [facility] HemeAutoSS Platelet mean volume (Bld) [Entitic vol] 9.2 fL Normal 6.4 - 10.8 fL [facility] HemeAutoSS Platelets (Bld) [#/Vol] 219.0 E9/L Normal 150. 0 - 500.0 E9/L [facility] HemeAutoSS RBC (Bld) [#/Vol] 4.5 E12/L Normal 4.3 - 5.9 E12/L [facility] HemeAutoSS WBC corrected for nucl RBC Auto (Bld) [#/Vol] 15.0 E9/L High 4.0 - 11.0 E9/L [facility] HemeAutoSS Insurance Correspondence Off iceon 12-18-2022 Insurance Correspondence Office [id number]#1 .00CD:127 Normal [facility] Interdisciplinary Note - Santosh e Manageron 12-18-2022 Interdisciplinary Note - Structural Shop Helper [facility] Comment on above: Result Comment: Elec tronically Signed By: Lucero Watson\.br\Date and Time Signed: 12/18/22 14:57 EDT Interdisciplinary Note - Dejuan singon 12-18-2022 Interdisciplinary Note - Nursing Patient he is confused and he does not able to answer my questions. informed staff in [facility] to send current medication list in fax.3N Normal [facility] Interdisciplinary Note - PTo n 12-18-2022 Interdisciplinary Note - PT Normal [facility] Laboratory - Microbiology an d Antimicrobial susceptibilityOrdered By: Karen Vergara on 12-18-2022 Bacteria identified Cx Nom (U) 10,000 cfu/ml Staphylococcus species Continuing incubation [facility] Monitor Recordon 12-18-2022 Monitor Record [id number]# 1.00CD:127 Normal [facility] No Panel InformationOrdered By: Karen Vergara on 12-18-2022 Blood Culture Charcoal Streptococcus spe cies Staphylococcus species coagulase negative In 1 of 2 blood culture bottles drawn. Isolated from aerobic bottle Preliminary gram stain results of gram positive cocci in clusters Result called to Dr. Mckinney by and results read back for confirmation on 12/19/2022 09:39:39 [facility] No Panel InformationOrdered By: [facility] on 12-18-2022 Blood Culture Charcoal No growth at 2 da ys. Final to follow at 7 days. [facility] PT & PTTon 12-18-2022 aPTT Coag (PPP) [Time] 30.6 second(s) Normal 25.1-36.5 [facility] Comment on above: Result Comment: Para meter [...] the same coagulation reagent and instrumentation as [facility]. Currently there are no coagulation studies available worldwide for children to 14 days, and no normal ranges. Heparin therapeutic range (represented by Anti-Factor Xa activity of 0.2 - 0.4 U/mL) corresponds to PTT of 56.6 - 109.0 sec. Performed By: #### 1 3502040, 5044498, 67722773, 7690808, 43223488, 74055927, 8414511 ####[facility] [address] [place] [address] INR Coag (PPP) [Relative time] 1.1 {INR} Invalid Interpretation Code [facility] Comment on above: Result Comment: INR results are specifically intended to assess patients stabilized on long-term Anticoagulation therapy suggested INR?s ?Less Intensive Anticoagulation? 2.0 ? 3.0Conventional Range 3.0 ? 4.5 Performed By: #### 1 6771990, 0952232, 16704562, 6624174, 90006653, 03666156, 8897453 ####[facility] [address] [place] [address] PT Coag (PPP) [Time] 12.5 second(s) Normal 9.4-12.5 [facility] Comment on above: Result Comment: 15 d [...] the same coagulation reagent and instrumentation as [facility]. Currently there are no coagulation studies available worldwide for children to 14 days, and no normal ranges. Performed By: #### 1 5314135, 1913345, 87834092, 0185827, 83140502, 92675045, 5798513 ####[facility] [address] [place] [address] Procalcitoninon 12-18-2022 Procalcitonin .09 ng/mL Normal .00-.[address] [facility] Comment on above: Result Comment: <0.5 ng/mL [...] to 24 hours. Performed By: #### 2 621962, 6533120, 1182756286, 22827997, 68620650 ####[facility] [address] [place] [address] RAD - Preliminary Cat Scan R eporton 12-18-2022 RAD - Preliminary Cat Scan Report [id number]# 1.00CD:127 Normal [facility] Troponin 0 Hr.on 12-18-2022 Troponin I.cardiac [Mass/Vol] 23.50 pg/mL Normal 15.90-38.40 [facility] Comment on above: Result Comment: The 95% CI (Confidence Interval) PPV (Positive Predictive Value) for myocardial infarction in females is 38 pg/mL, in males 51 pg/mL. The results should be used in conjunction with clinical conditions of myocardial infarction.([email or web address] High Sensitivity Troponin I Instructions For Use, [employer], December 2017) Performed By: #### 1 5267787, 6320678, 83646012, 1462077, 94782334, 48437184, 4474666 ####[facility] [address] [place] 6273257 Troponin 3 Hr.on 12-18-2022 Troponin I.cardiac [Mass/Vol] 18.80 pg/mL Normal 15.90-38.40 [facility] Comment on above: Result Comment: The 95% CI (Confidence Interval) PPV (Positive Predictive Value) for myocardial infarction in females is 38 pg/mL, in males 51 pg/mL. The results should be used in conjunction with clinical conditions of myocardial infarction.([email or web address] High Sensitivity Troponin I Instructions For Use, [employer], December 2017) Performed By: #### 1 8964820 ####[facility] [address] [place] [address] Troponin 6 Hr.on 12-18-2022 Troponin I.cardiac [Mass/Vol] 22.50 pg/mL Normal 15.90-38.40 [facility] Comment on above: Result Comment: The 95% CI (Confidence Interval) PPV (Positive Predictive Value) for myocardial infarction in females is 38 pg/mL, in males 51 pg/mL. The results should be used in conjunction with clinical conditions of myocardial infarction.(Access High Sensitivity Troponin I Instructions For Use, [employer], December 2017) Performed By: #### 2 811677, 5791538, 9170571546, 92625191, 06502309 ####[facility] [address] [place] [address] Troponin 9 Hr.on 12-18-2022 Troponin I.cardiac [Mass/Vol] 18.90 pg/mL Normal 15.90-38.40 [facility] Comment on above: Result Comment: The 95% CI (Confidence Interval) PPV (Positive Predictive Value) for myocardial infarction in females is 38 pg/mL, in males 51 pg/mL. The results should be used in conjunction with clinical conditions of myocardial infarction.(Access High Sensitivity Troponin I Instructions For Use, [employer], December 2017) Performed By: #### 1 6345686 ####[facility] [address] [place] [address] UA With Cult Reflexon 2022 Bacteria LM Ql (Urine sed) TRACE Normal Trace [facility] Comment on above: Performed By: #### 1 0971414, 4660705 ####[address] [address] Bilirubin Ql (U) Negative Normal Negative [facility] Comment on above: Performed By: #### 1 6203314, 2220349 ####[address] [address] Clarity (U) CLEAR Normal Clear [facility] Comment on above: Performed By: #### 1 0175515, 6857360 ####[address] [address] Color (U) YELLOW Normal Yellow [facility] Comment on above: Performed By: #### 1 9753514, 0396159 ####[facility] [address] [place] [address] Epithelial cells.squamous LM.HPF (Urine sed) [#/Area] 0-2 Normal 0-[address] [facility] Comment on above: Performed By: #### 1 5679180, 1851345 ####[address] [address] Glucose Test strip (U) [Mass/Vol] Negative Normal Negative [facility] Comment on above: Performed By: #### 1 6081573, 4482885 ####[facility] [address] [place] [address] Hemoglobin Ql (U) TRACE Abnormal Negative [facility] Comment on above: Performed By: #### 1 5886918, 4089854 ####[facility] [address] [place] [address] Ketones (U) [Mass/Vol] Negative Normal Negative [facility] Comment on above: Performed By: #### 1 3297030, 9358303 ####[facility] [address] [place] [address] [place].plasma/[place].R BC (Bld) [Mass ratio] 0-3 Normal 0-3 [facility] Comment on above: Performed By: #### 1 6308389, 9700958 ####[facility] [address] [place] [address] Nitrite Ql (U) Negative Normal Negative [facility] Comment on above: Performed By: #### 1 7071924, 9624948 ####[facility] [address] [place] [address] pH (U) 6.5 [pH] Invalid Interpretation Code 5.0-9.0 [facility] Comment on above: Performed By: #### 1 3758073, 1478271 ####[facility] [address] [place] [address] Protein (U) [Mass/Vol] Negative Normal Negative [facility] Comment on above: Performed By: #### 1 5332631, 7166949 ####[facility] [address] [place] [address] Specific gravity (U) [Rel density] 1.020 Invalid Interpretation Code 1.005-1.030 [facility] Comment on above: Performed By: #### 1 6326438, 4425036 ####[facility] [address] [place] [address] Type of Urine collection method Clean Catch Normal [facility] Comment on above: Performed By: #### 1 0470609, 7888769 ####[facility] [address] [place] [address] Urobilinogen Qn (U) 0.2 {Lei'U}/dL Normal 0.0-1.0 [facility] Comment on above: Performed By: #### 1 1407893, 1414064 ####[facility] [address] [place] [address] WBC Auto Ql (U) 3+ Abnormal Negative [facility] Comment on above: Performed By: #### 1 3520914, 2376992 ####[facility] [address] [place] [address] WBC LM.HPF (Urine sed) [#/Area] /[HPF] Abnormal 0-5 [facility] Comment on above: Performed By: #### 1 4700345, 2581852 ####[facility] [address] [place] [address] URINALYSISOrdered By: Houston Castillo on 12-18-2022 Bacteria [...] PM) Normal Negative [facility] UA Auto SS [place].plasma/[place].R BC (Bld) [Mass ratio] 0-3 /HPF Normal 0-3/HPF [facility] UA Au to SS Nitrite Ql (U) Negative (12/18/22 4:45 PM) Normal Negative [facility] UA Auto SS pH (U) 6.5 *NA* (12/18/22 4:45 PM) Invalid Interpretation Code 5.0 - 9.0 [facility] UA Auto SS Protein (U) [Mass/Vol] Negative (12/18/22 4:45 PM) Normal Negative [facility] UA Auto SS Specific gravity (U) [Rel density] 1.020 *NA* (12/18/22 4:45 PM) Invalid Interpretation Code 1.005 - 1.030 [facility] UA Auto SS UA Spec Desc Clean Catch (12/18/22 4:45 PM) Normal [facility] UA Auto SS Urobilinogen Qn (U) 0.5418035 {Lei'U}/dL Normal 0.0 - 1.0 EU/dL [facility] UA Auto SS WBC Auto Ql (U) 3+ *ABN* (12/18/22 4:45 PM) Invalid Interpretation Code Negative [facility] UA Auto SS WBC LM.HPF (Urine sed) [#/Area] /[HPF] Invalid Interpretation Code 0-5/HPF [facility] UA Auto SS XR Chest Single Viewon 12-18 XR Chest Single View Normal [facility] XR Pelvis 1 or 2 Viewson XR Pelvis 1 or 2 Views Normal Fi [place] [facility] eGFRon 12-18-2022 GFR/1.73 sq M.predicted among non-blacks MDRD (S/P/Bld) [Vol rate/Area] 44 mL/min/1.73 m2 Low >=59 [facility] Comment on above: Order Comment: Order added by Discern Expert. Result Comment: [employer]iter earnest kidney disease could be indicated at eGFR's of less than 60 mL/min/1.73m2. Kidney failure is indicated at less than 15 mL/min/1.73m2. Performed By: #### 2 258442, 8586959, [id number], 56544903, 83334169 ####[facility] [address] [place] [address] GFR/1.73 sq M.predicted among non-blacks MDRD (S/P/Bld) [Vol rate/Area] 38 mL/min/1.73 m2 Low >=59 [facility] Comment on above: Order Comment: Order added by Discern Expert. Result Comment: [employer]iter earnest kidney disease could be indicated at eGFR's of less than 60 mL/min/1.73m2. Kidney failure is indicated at less than 15 mL/min/1.73m2. Performed By: #### 1 0483377, 7386474, 50500110, 9909283, 39876535, 87053943, 4832251 ####[facility] [address] [place] [address] Capillary Glucose POCon 11-22 Glucose [Mass/Vol] 165 mg/dL High [address] [place] [address] Comment on above: Result Comment: Yazmin bri Meter Performed By: #### 2 12856928 ####[facility] [address] [place] [address] Glucose [Mass/Vol] 184 mg/dL [address] Comment on above: Performed By: #### 2 [id number] ####[facility] [address] [place] [address] Capillary Glucose POCon 11-22 Glucose [Mass/Vol] 184 mg/dL [address] Comment on above: Result Comment: Yazmin bri Meter Performed By: #### 2 [id number] ####[facility] [address] [place] [address] Glucose [Mass/Vol] 141 mg/dL [address] Comment on above: Result Comment: Yazmin bri Meter Performed By: #### 2 [id number] ####[facility] [address] [place] [address] Capillary Glucose POCon 11-22 Glucose [Mass/Vol] 183 mg/dL [address] Comment on above: Result Comment: Yazmin bri Meter Performed By: #### 2 [id number] ####[facility] [address] [place] [address] Glucose [Mass/Vol] 147 mg/dL [address] Comment on above: Result Comment: Yazmin bri Meter Performed By: #### 2 [id number] ####[facility] [address] [place] [address] Capillary Glucose POCon 11-22 Glucose [Mass/Vol] 188 mg/dL High [facility] Comment on above: Result Comment: Yazmin bri Meter Performed By: #### 2 [id number] ####[facility] [address] [place] [address] Glucose [Mass/Vol] 162 mg/dL High [facility] Comment on above: Result Comment: Yazmin bri Meter Performed By: #### 2 [id number] ####[facility] [address] [place] [address] Auto Diffon 12-13-2022 Basophils/100 WBC (Bld) 0.0 % Normal 0.0-2.0 [facility] Comment on above: Order Comment: Order Added by Discern Expert. Performed By: #### 1 1170516, 5314014, 354570906, 2651446, 0224347 ####[facility] [address] [place] [address] Basophils/Leukocytes Auto (Bld) [Pure # fraction] 0.0 E9/L Normal 0.0-0.2 [facility] Comment on above: Order Comment: Order Added by Discern Expert. Performed By: #### 1 8216126, 9004584, 843982375, 4266757, 6184014 ####[facility] [address] [place] [address] Eosinophils/100 WBC (Bld) 7.6 % Normal 0.0-8.0 [facility] Comment on above: Order Comment: Order Added by Discern Expert. Performed By: #### 1 6493528, 8643108, 862673521, 7524118, 7787055 ####[facility] [address] [place] [address] Eosinophils/Leukocytes Auto (Bld) [Pure # fraction] 1.0 E9/L High 0.0-0.5 [facility] Comment on above: Order Comment: Order Added by Discern Expert. Performed By: #### 1 8725535, 5973325, 875754618, 8884460, 6717455 ####[address] [place] [address] Lymphocytes/100 WBC (Bld) 10.3 % Low 14.0-50.0 [facility] Comment on above: Order Comment: Order Added by Discern Expert. Performed By: #### 1 9128110, 1896010, 658696039, 8526532, 6029786 ####[address] [place] [address] Lymphocytes/Leukocytes Auto (Bld) [Pure # fraction] 1.3 E9/L Normal 1.0-4.0 [facility] Comment on above: Order Comment: Order Added by Bethany Expert. Performed By: #### 1 2367235, 0728734, 094152524, 1141013, 2453544 ####[address] [address] Monocytes/100 WBC (Bld) 9.6 % Normal 4.0-14.0 [facility] Comment on above: Order Comment: Order Added by Bethany Expert. Performed By: #### 1 0907992, 6464872, 000285805, 6738886, 6486475 ####[address] [address] Monocytes/Leukocytes Auto (Bld) [Pure # fraction] 1.2 E9/L High 0.2-1.0 [facility] Comment on above: Order Comment: Order Added by Bethany Expert. Performed By: #### 1 4149484, 6564865, 721310786, 8240533, 2018977 ####[address] [address] Neutrophils/100 WBC (Bld) 72.5 % Normal 36.0-75.0 [facility] Comment on above: Order Comment: Order Added by Bethany Expert. Performed By: #### 1 5998566, 4837694, 468050139, 5978327, 7019496 ####[facility] [address] [place] [address] Neutrophils/Leukocytes Auto (Bld) [Pure # fraction] 9.0 E9/L High 2.0-7.5 [facility] Comment on above: Order Comment: Order Added by Discern Expert. Performed By: #### 1 9767628, 6129180, 443111209, 8051443, 6675357 ####[address] [place] [address] CBC w/ Auto Diffon 3 Erythrocyte distribution width (RBC) [Ratio] 15.0 % High 10.9-14.2 [facility] Comment on above: Performed By: #### 1 4437580, 0238754, 628752048, 3993446, 0025056 ####[address] [place] [address] Hematocrit (Bld) [Volume fraction] 45.2 % Normal 37.7-49.0 [facility] Comment on above: Performed By: #### 1 9305776, 2418554, 565035144, 3756952, 1293499 ####[address] [place] [address] Hemoglobin (Bld) [Mass/Vol] 14.8 g/dL Normal 13.5-17.5 [facility] Comment on above: Performed By: #### 1 3478836, 1046749, 862351664, 8914989, 3371820 ####[address] [place] [address] MCH (RBC) [Entitic mass] 27.8 pg Normal 27.0-34.0 [facility] Comment on above: Performed By: #### 1 8681899, 6654441, 256086615, 5109013, 6216456 ####[address] [place] [address] MCHC (RBC) [Mass/Vol] 32.7 g/dL Normal 31.4-36.0 [facility] Comment on above: Performed By: #### 1 7766549, 7496108, 251002242, 3287710, 4860670 ####[address] [place] [address] MCV (RBC) [Entitic vol] 85.0 fL Normal 80.0-100.0 [facility] Comment on above: Performed By: #### 1 2051329, 2237280, 414723200, 7494838, 5657770 ####[address] [address] Platelet mean volume (Bld) [Entitic vol] 9.4 fL Normal 6.4-10.8 [facility] Comment on above: Performed By: #### 1 2773963, 1772953, 823624626, 1820031, 2063357 ####[address] [address] Platelets (Bld) [#/Vol] 193.0 E9/L Normal 150.0-500.0 [facility] Comment on above: Performed By: #### 1 0248003, 5458471, 404173012, 1786752, 6039859 ####[address] [address] RBC (Bld) [#/Vol] 5.3 E12/L Normal 4.3-5.9 [facility] Comment on above: Performed By: #### 1 3270728, 7343040, 902889343, 9661812, 5653618 ####[address] [address] WBC corrected for nucl RBC Auto (Bld) [#/Vol] 12.5 E9/L High 4.0-11.0 [facility] Comment on above: Performed By: #### 1 5260355, 5113746, 930725775, 0762570, 5513565 ####[address] [address] CMPon 12-13-2022 Albumin [Mass/Vol] 3.6 g/dL Normal 3.3-5.0 [facility] Comment on above: Performed By: #### 1 7470756, 3239124, 248620121, 8153232, 5396204 ####[facility] [address] [place] [address] Albumin/Globulin (S) [Mass conc ratio] 1.0 Low 1.1-2.2 [facility] Comment on above: Performed By: #### 1 5734717, 0354230, 083523444, 6120298, 9629294 ####[facility] [address] [place] [address] ALP [Catalytic activity/Vol] 49 Int._Unit/L Normal 21-98 [facility] Comment on above: Performed By: #### 1 6976814, 2856869, 608724980, 4615550, 6257589 ####[address] [place] [address] ALT No additional P-5'-P [Catalytic activity/Vol] 21 Int._Unit/L Normal 6-46 [facility] Comment on above: Performed By: #### 1 5606173, 3677456, 872723800, 2210316, 4611449 ####[facility] [address] [place] [address] Anion gap [Moles/Vol] 16 mmol/L Normal 6-16 [facility] Comment on above: Performed By: #### 1 0612674, 2289232, 240530258, 9248995, 2678820 ####[address] [place] [address] AST [Catalytic activity/Vol] 21 Int._Unit/L Normal 5-43 [facility] Comment on above: Performed By: #### 1 2791814, 0659155, 773602441, 1543930, 3817146 ####[facility] [address] [place] [address] Bilirubin [Mass/Vol] 0.6 mg/dL Normal 0.0-1.1 [facility] Comment on above: Performed By: #### 1 9764027, 3619265, 607092875, 0265083, 3470869 ####[facility] [address] [facility] [place] [address] Calcium [Mass/Vol] 9.4 mg/dL Normal 8.9-11.1 [facility] Comment on above: Performed By: #### 1 8406739, 3657432, 788628450, 0381228, 4559433 ####[facility] [address] [place] [address] Chloride [Moles/Vol] 99 mmol/L Low 101-[address] [facility] Comment on above: Performed By: #### 1 3246864, 5622407, 550531074, 3150535, 2406095 ####[facility] [address] [place] [address] CO2 [Moles/Vol] 31 mmol/L Normal 21-31 [facility] Comment on above: Performed By: #### 1 1783848, 8805270, 757889224, 3730407, 7287948 ####[facility] [address] [facility] [place] [address] Creatinine [Mass/Vol] 1.5 mg/dL High 0.5-1.3 [facility] Comment on above: Performed By: #### 1 6023513, 7327352, 959291069, 0295807, 0817586 ####[facility] [address] [place] [address] Globulin (S) [Mass/Vol] 3.7 g/dL Normal 1.4-4.0 [facility] Comment on above: Performed By: #### 1 6358202, 8549839, 402319784, 0836792, 5244271 ####[facility] [address] [place] [address] Glucose [Mass/Vol] 128 mg/dL Normal 55-199 [facility] Comment on above: Result Comment: If t his glucose result represents a fasting glucose, interpretation should refer to the following reference range: 55-99 mg/dL Performed By: #### 1 9663235, 5559660, 790775538, 1343648, 8170347 ####[facility] [address] [place] [address] Potassium [Moles/Vol] 4.1 mmol/L Normal 3.5-5.3 [facility] Comment on above: Performed By: #### 1 6680823, 1660651, 395139358, 3174256, 3458844 ####[facility] [address] [place] [address] Protein [Mass/Vol] 7.3 g/dL Normal 6.0-7.8 [facility] Comment on above: Performed By: #### 1 8925266, 9577224, 234870717, 7163235, 6911295 ####[facility] [address] [place] [address] Sodium [Moles/Vol] 142 mmol/L Normal 135-145 [facility] Comment on above: Performed By: #### 1 2574386, 7492100, 758025174, 5881505, 1300337 ####[facility] [address] [place] [address] Urea nitrogen [Mass/Vol] 57 mg/dL High 5-21 [facility] Comment on above: Performed By: #### 1 2101204, 9759869, 805402088, 4504797, 3762639 ####[facility] [address] [place] [address] Urea nitrogen/Creatinine [Mass ratio] 38 No Units High 10-20 [facility] Comment on above: Performed By: #### 1 1641340, 3889408, 740677583, 0279781, 4022532 ####[facility] [address] [place] [address] Capillary Glucose POCon 07- Glucose [Mass/Vol] 256 mg/dL High 55-99 [facility] Comment on above: Result Comment: Yazmin bri Meter Performed By: #### 2 24515460 ####[facility] [address] [place] [address] Glucose [Mass/Vol] 152 mg/dL High 55-99 [facility] Comment on above: Result Comment: Yazmin bri Meter Performed By: #### 2 00439621 ####[facility] [address] [place] [address] AjjS9cfb 12-13-2022 HbA1c (Bld) [Mass fraction] 6.5 % High <=5.9 [facility] Comment on above: Performed By: #### 1 0565283, 9663470, 652098339, 4939650, 2245498 ####[facility] [address] [place] [address] eGFRon 12-13-2022 GFR/1.73 sq M.predicted among non-blacks MDRD (S/P/Bld) [Vol rate/Area] 47 mL/min/1.73 m2 Low >=59 [facility] Comment on above: Order Comment: Order added by Discern Expert. Result Comment: Corporate Recruiter earnest kidney disease could be indicated at eGFR's of less than 60 mL/min/1.73m2. Kidney failure is indicated at less than 15 mL/min/1.73m2. Performed By: #### 1 4607600, 3571897, 836583608, 3609223, 5013513 ####[facility] [address] [place] [address] Capillary Glucose POCon 11-22 Glucose [Mass/Vol] 212 mg/dL High 55-99 [facility] Comment on above: Result Comment: Yazmin bri Meter Performed By: #### 2 24649068 ####[facility] [address] [place] [address] Glucose [Mass/Vol] 161 mg/dL High 55[address] [place] [address] Comment on above: Result Comment: Yazmin bri Meter Performed By: #### 2 18311910 ####[facility] [address] [place] [address] Capillary Glucose POCon 11-22 Glucose [Mass/Vol] 206 mg/dL High 55-99 [facility] Comment on above: Result Comment: Yazmin bri Meter Performed By: #### 2 45926475 ####[facility] [address] [place] [address] Glucose [Mass/Vol] 152 mg/dL [address] Comment on above: Result Comment: Yazmin bri Meter Performed By: #### 2 49753362 ####[facility] [address] [place] [address] Capillary Glucose POCon 11-22 Glucose [Mass/Vol] 140 mg/dL High [address] [place] [address] Comment on above: Result Comment: Yazmin bri Meter Performed By: #### 2 61307177 ####[facility] [address] [place] [address] Capillary Glucose POCon 11-21 Glucose [Mass/Vol] 243 mg/dL [address] Comment on above: Result Comment: Yazmin bri Meter Performed By: #### 2 17179915 ####[facility] [address] [place] [address] Glucose [Mass/Vol] 157 mg/dL [address] Comment on above: Result Comment: Yazmin bri Meter Performed By: #### 2 60839008 ####[facility] [address] [place] [address] Capillary Glucose POCon 11-21 Glucose [Mass/Vol] 181 mg/dL [address] Comment on above: Result Comment: Yazmin bri Meter Performed By: #### 2 27387392 ####[facility] [address] [place] [address] Capillary Glucose POCon 11-21 Glucose [Mass/Vol] 149 mg/dL [address] Comment on above: Result Comment: Yazmin bri Meter Performed By: #### 2 08641141 ####[facility] [address] [place] [address] Glucose [Mass/Vol] 164 mg/dL [address] Comment on above: Result Comment: Yazmin bri Meter Performed By: #### 2 65480965 ####[facility] [address] [place] [address] Capillary Glucose POCon 11-21 Glucose [Mass/Vol] 265 mg/dL High 55-99 [facility] Comment on above: Result Comment: Yazmin bri Meter Performed By: #### 2 22043816 ####[facility] [address] [place] [address] Glucose [Mass/Vol] 129 mg/dL High 55-99 [facility] Comment on above: Result Comment: Yazmin bri Meter Performed By: #### 2 55333310 ####[facility] [address] [place] [address] Family Medicine Office/Clini c Noteon 12-06-2022 Family Medicine Office/Clinic Note Normal [facility] Comment on above: Result Comment: Elec tronically Signed By: SHAISTA POTTS, Donta\.br\Date and Time Signed: 12/06/22 21:11 EDT Capillary Glucose POCon 11-21 Glucose [Mass/Vol] 196 mg/dL High 55- [facility] Comment on above: Result Comment: Yazmin bri Meter Performed By: #### 2 88582299 ####[facility] [address] [place] [address] Glucose [Mass/Vol] 159 mg/dL High 55-99 [facility] Comment on above: Result Comment: Yazmin bri Meter Performed By: #### 2 51744636 ####[facility] [address] [place] [address] Capillary Glucose POCon 11-21 Glucose [Mass/Vol] 195 mg/dL High 55-99 [facility] Comment on above: Result Comment: Gareth guerrero RN/ Performed By: #### 2 48646623 ####[facility] [address] [place] [address] Insurance Correspondence Off ice12-04-2022 Insurance Correspondence Office [id number]# 1.00CD:127 Normal [facility] Physician Orderon 12-03-2022 Physician Order [id number]# 1.00CD:127 Normal [facility] CHEMISTRYOrdered By: Lab ROP User on 12-02-2022 Glucose [Mass/Vol] 227 mg/dL High 55 - 99 mg/dL [facility] POC Subsection Comment on above: Result Comment: Gareth GARDINER POC Device SN [id number] Invalid Interpretation Code [facility] POC Subsection POC User ID [id number] Invalid Interpretation Code [facility] POC Subsection POC Username KINGSTON JAMISON Invalid Interpretation Code [facility] POC Subsection Glucose [Mass/Vol] 127 mg/dL High 55 - 99 mg/dL [facility] POC Subsection Comment on above: Result Comment: Gareth GARDINER POC Device SN [id number] Invalid Interpretation Code FT POC Subsection POC User ID [id number] Invalid Interpretation Code [facility] POC Subsection POC Username TOYIN REYNOLDS Invalid Interpretation Code [facility] POC Subsection Capillary Glucose POCon 11-21 Glucose [Mass/Vol] 227 mg/dL High 55-99 [facility] Comment on above: Result Comment: Gareth GARDINER Performed By: #### 2 09835757 ####[facility] [address] [place] [address] Glucose [Mass/Vol] 127 mg/dL High 55-99 [facility] Comment on above: Result Comment: Gareth GARDINER Performed By: #### 2 40402068 ####[facility] [address] [place] [address] Coding Queryon 12-02-2022 Coding Query Normal [facility] Discharge Note-Nursingon Discharge Note-Nursing Normal [facility] Inpatient Clinical Summaryon 12-02-2022 Inpatient Clinical Summary Normal [facility] Inpatient Patient Summaryon 12-02-2022 Inpatient Patient Summary Normal [facility] Insurance Correspondence Off iceon 12-02-2022 Insurance Correspondence Office [id number]#1. 00CD:127 Normal [facility] Interdisciplinary Note - Santosh e Manageron 12-02-2022 Interdisciplinary Note - Structural Shop Helper Normal [facility] Comment on above: Result Comment: Elec tronically Signed By: Lisa Weems RN\.br\Date and Time Signed: 12/02/22 09:31 EDT Monitor Recordon 12-02-2022 Monitor Record [id number]# 1.00CD:127 Normal [facility] Physician Orderon 12-02-2022 Physician Order [id number]# 1.00CD:127 Normal [facility] Progress Note-Physicianon Progress Note-Physician Normal [facility] Comment on above: Result Comment: Elec tronically Signed By: Adeline COLEMAN\.br\Date and Time Signed: 12/01/22 18:43 EDT\.br\Electronically Co-Signed By: Juan Hdz DO\.br\Date and Time Co-Signed: 12/02/22 07:20 EDT Transfer Documentson 023 Transfer Documents [id number]# 1.00CD:127 Normal [facility] BMPon 12-01-2022 Anion gap [Moles/Vol] 13 mmol/L Normal 6-16 [facility] Comment on above: Performed By: #### 1 2369020, 2396677, 9893833, 7923347 ####[facility] [address] [place] [address] Calcium [Mass/Vol] 9.1 mg/dL Normal 8.9-11.1 [facility] Comment on above: Performed By: #### 1 7078866, 6030321, 9698557, 0811952 ####[facility] [address] [place] [address] Chloride [Moles/Vol] 102 mmol/L Normal 101-111 [facility] Comment on above: Performed By: #### 1 6085047, 3607475, 9282633, 2516286 ####[facility] [address] [place] [address] CO2 [Moles/Vol] 28 mmol/L Normal 21-31 [facility] Comment on above: Performed By: #### 1 5574935, 8578526, 1486137, 3553806 ####[facility] [address] [place] [address] Creatinine [Mass/Vol] 1.3 mg/dL Normal 0.5-1.3 [facility] Comment on above: Performed By: #### 1 2238942, 9369011, 9978738, 6047486 ####[facility] [address] [place] [address] Glucose [Mass/Vol] 97 mg/dL Normal 55-199 [facility] Comment on above: Result Comment: If t his glucose result represents a fasting glucose, interpretation should refer to the following reference range: 55-99 mg/dL Performed By: #### 1 4299242, 5662350, 1575558, 6606830 ####[facility] [address] [facility] [place] [address] Potassium [Moles/Vol] 4.6 mmol/L Normal 3.5-5.3 [facility] Comment on above: Performed By: #### 1 1380434, 1050235, 3337331, 7772887 ####[facility] [address] [facility] [place] [address] Sodium [Moles/Vol] 138 mmol/L Normal 135-145 [facility] Comment on above: Performed By: #### 1 3907813, 3392783, 9693851, 9503491 ####[facility] [address] [facility] [place] [address] Urea nitrogen [Mass/Vol] 24 mg/dL High 5-21 [facility] Comment on above: Performed By: #### 1 3189556, 2955160, 8892209, 3879165 ####[facility] [address] [facility] [place] [address] Urea nitrogen/Creatinine [Mass ratio] 18 No Units Normal 10-20 [facility] Comment on above: Performed By: #### 1 2406160, 2642735, 1355318, 2591932 ####[facility] [address] [place] [address] CHEMISTRYOrdered By: Lab ROP User on 12-01-2022 Glucose [Mass/Vol] 114 mg/dL High 55 - 99 mg/dL [facility] POC Subsection Comment on above: Result Comment: Gareth guerrero RN/ POC Device SN [id number] Invalid Interpretation Code [facility] POC Subsection POC User ID [id number] Invalid Interpretation Code [facility] POC Subsection POC Username NETO CHEEK Invalid Interpretation Code [facility] POC Subsection CHEMISTRYOrdered By: SYSTEM SYSTEM on 12-01-2022 Anion gap [Moles/Vol] 13 mmol/L Normal 6 - 16 mEq/L [facility] Remisol Calcium [Mass/Vol] 9.1 mg/dL Normal 8.9 - 11. 1 mg/dL [facility] Remisol Chloride [Moles/Vol] 102 mmol/L Normal 101 - 1 11 mmol/L FT Remisol CK [Catalytic activity/Vol] 211 [iU]/d Normal 14 - 261 Int._Unit/L [facility] Remisol CO2 [Moles/Vol] 28 mmol/L Normal 21 - 31 mmol/L [facility] Remisol Creatinine [Mass/Vol] 1.3 mg/dL Normal 0.5 - 1.3 mg/dL [facility] Remisol GFR/1.73 sq M.predicted among non-blacks MDRD (S/P/Bld) [Vol rate/Area] 56 mL/min/1.73 m2 Low >=59mL/min/ 1.73 m2 [facility] Chem S Glucose [Mass/Vol] 97 mg/dL Normal 55 - 199 mg/dL FT Remisol Magnesium [Mass/Vol] 2.1 mg/dL Normal 1.3 - 2 .4 mg/dL FT [facility] Potassium [Moles/Vol] 4.6 mmol/L Normal 3.5 - 5.3 mmol/L [facility] Remisol Sodium [Moles/Vol] 138 mmol/L Normal 135 - 145 mmol/L [facility] Remisol Urea nitrogen [Mass/Vol] 24 mg/dL High 5 - 21 mg/dL FT Remisol Urea nitrogen/Creatinine [Mass ratio] 18 mg/mg Normal 10 - 20 [facility] Remisol CKon 12-01-2022 CK [Catalytic activity/Vol] 211 Int._Unit/L Normal 14-261 [facility] Comment on above: Performed By: #### 1 0234712, 6406832, 3177778, 8787733 ####[facility] [address] [place] [address] Capillary Glucose POCon 11-21 Glucose [Mass/Vol] 114 mg/dL High 55-99 [facility] Comment on above: Result Comment: Gareth GARDINER Performed By: #### 2 [id number] ####[facility] [address] [place] [address] [address] Glucose [Mass/Vol] 193 mg/dL High 55-99 [facility] Comment on above: Result Comment: Gareth GARDINER Performed By: #### 2 [id number] ####[facility] [address] [place] [address] Glucose [Mass/Vol] 203 mg/dL High 55-99 [facility] Comment on above: Result Comment: Gareth GARDINER Performed By: #### 2 [id number] ####[facility] [address] [place] [address] Glucose [Mass/Vol] 110 mg/dL High 55-99 [facility] Comment on above: Result Comment: Gareth GARDINER Performed By: #### 2 [id number] ####[facility] [address] [place] [address] Interdisciplinary Note - Santosh e Manageron 12-01-2022 Interdisciplinary Note - Structural Shop Helper Pt is asleep in bed, no family present. Pt is accepted to [facility] side, pending precert at this time. Contact information provided and white board updated, CRM following Normal [facility] Comment on above: Result Comment: Elec tronically Signed By: Dank HAYDEN, Lisa\.candice\Date and Time Signed: 12/01/22 08:20 EDT Ionized Calciumon 12-01-2022 Calcium.ionized ISE [Mass/Vol] 4.8 mg/dL Invalid Interpretation Code 4.5-5.6 [facility] Comment on above: Result Comment: Perf ormed at: [facility] [address] [place], [place] [id number] PhD Michael Cortes Performed By: #### 2 328586, 5454584, 2506228, 74526980, 47327771, 1833171, 02082313, 0850465, 29940230, 291599151, 4324525, 0548523 ####[facility] [address] [place] [address] Magnesiumon 12-01-2022 Magnesium [Mass/Vol] 2.1 mg/dL Normal 1.3-2.4 [facility] Comment on above: Performed By: #### 1 1080033, 6370036, 4044664, 0348897 ####[facility] [address] [place] [address] Progress Note-Physicianon Progress Note-Physician Normal [facility] Comment on above: Result Comment: Elec tronically Signed By: Pao POTTS, Lizeth\.br\Date and Time Signed: 12/01/22 12:41 EDT XR Abdomen 1 Viewon 12-02-19 XR Abdomen 1 View Normal [facility] eGFRon 12-01-2022 GFR/1.73 sq M.predicted among non-blacks MDRD (S/P/Bld) [Vol rate/Area] 56 mL/min/1.73 m2 Low >=59 [facility] Comment on above: Order Comment: Order added by Discern Expert. Result Comment: Corporate Recruiter earnest kidney disease could be indicated at eGFR's of less than 60 mL/min/1.73m2. Kidney failure is indicated at less than 15 mL/min/1.73m2. Performed By: #### 1 3224188, 7998174, 6555532, 2964337 ####[facility] [address] [place] [address] BMPon 11-30-2022 Anion gap [Moles/Vol] 11 mmol/L Normal 6-16 [facility] Comment on above: Performed By: #### 2 086055, 3700672, 67756128 ####[facility] [address] [place] [address] Calcium [Mass/Vol] 9.0 mg/dL Normal 8.9-11.1 [facility] Comment on above: Performed By: #### 2 310157, 5633003, 40442262 ####[facility] [address] [place] [address] Chloride [Moles/Vol] 102 mmol/L Normal 101-111 [facility] Comment on above: Performed By: #### 2 685455, 7867182, 65368281 ####[facility] [address] [place] [address] CO2 [Moles/Vol] 31 mmol/L Normal 21-31 [facility] Comment on above: Performed By: #### 2 580010, 6831268, 49758193 ####[facility] [address] [place] [address] Creatinine [Mass/Vol] 1.1 mg/dL Normal 0.5-1.3 [facility] Comment on above: Performed By: #### 2 552008, 4015326, 26171856 ####[facility] [address] [place] [address] Glucose [Mass/Vol] 114 mg/dL Normal 55-199 [facility] Comment on above: Result Comment: If t his glucose result represents a fasting glucose, interpretation should refer to the following reference range: 55-99 mg/dL Performed By: #### 2 283602, 5854442, 02392835 ####[facility] [address] [place] [address] Potassium [Moles/Vol] 3.4 mmol/L Low 3.5-5.3 [facility] Comment on above: Performed By: #### 2 848865, 9362037, 17021076 ####[facility] [address] [place] [address] Sodium [Moles/Vol] 141 mmol/L Normal 135-145 [facility] Comment on above: Performed By: #### 2 106436, 5635904, 95295265 ####[facility] [address] [place] [address] Urea nitrogen [Mass/Vol] 23 mg/dL High 5-21 [facility] Comment on above: Performed By: #### 2 941296, 8246178, 09557794 ####[facility] [address] [place] [address] Urea nitrogen/Creatinine [Mass ratio] 21 No Units High 10-20 [facility] Comment on above: Performed By: #### 2 915387, 8788615, 04631627 ####[facility] [address] [place] [address] CHEMISTRYOrdered By: SYSTEM SYSTEM on 11-30-2022 Anion gap [Moles/Vol] 11 mmol/L Normal 6 - 16 mEq/L [facility] Remisol Calcium [Mass/Vol] 9.0 mg/dL Normal 8.9 - 11. 1 mg/dL [facility] Chloride [Moles/Vol] 102 mmol/L Normal 101 - 1 11 mmol/L [facility] Remisol CO2 [Moles/Vol] 31 mmol/L Normal 21 - 31 mmol/L [facility] Remisol Creatinine [Mass/Vol] 1.1 mg/dL Normal 0.5 - 1.3 mg/dL [facility] Remisol GFR/1.73 sq M.predicted among non-blacks MDRD (S/P/Bld) [Vol rate/Area] 69 mL/min/1.73 m2 Normal >=59mL/min/ 1.73 m2 [facility] Chem S Glucose [Mass/Vol] 114 mg/dL Normal 55 - 199 mg/dL [facility] Magnesium [Mass/Vol] 1.8 mg/dL Normal 1.3 - 2 .4 mg/dL [facility] Potassium [Moles/Vol] 3.4 mmol/L Low 3.5 - 5.3 mmol/L [facility] Sodium [Moles/Vol] 141 mmol/L Normal 135 - 145 mmol/L [facility] Remisol Urea nitrogen [Mass/Vol] 23 mg/dL High 5 - 21 mg/dL [facility] Remisol Urea nitrogen/Creatinine [Mass ratio] 21 mg/mg High 10 - 20 [facility] Remisol Capillary Glucose POCon 11-21 Glucose [Mass/Vol] 194 mg/dL High 55-99 [facility] Comment on above: Result Comment: Gareth GARDINER Performed By: #### 2 03960975 ####[facility] [address] [place] [address] Glucose [Mass/Vol] 96 mg/dL Normal 55-99 [facility] Comment on above: Performed By: #### 2 15982186 ####[facility] [address] [place] [address] Glucose [Mass/Vol] 130 mg/dL High 55-99 [facility] Comment on above: Result Comment: Gareth guerrero RN/ Performed By: #### 2 [id number] ####[facility] [address] [place] [address] Glucose [Mass/Vol] 113 mg/dL High 55-99 [facility] Comment on above: Result Comment: Gareth GARDINER Performed By: #### 2 36586729 ####[facility] [address] [place] [address] Echo Transthoracic Completeo n 11-30-2022 Echo Transthoracic Complete Normal [facility] Insurance Correspondence Off iceon 11-30-2022 Insurance Correspondence Office [id number]:127 Normal [facility] Interdisciplinary Note - Santosh e Manageron 11-30-2022 Interdisciplinary Note - Structural Shop Helper Normal [facility] Comment on above: Result Comment: Elec tronically Signed By: Dank HAYDEN, Lisa\.candice\Date and Time Signed: 11/30/22 10:48 EDT Magnesiumon 11-30-2022 Magnesium [Mass/Vol] 1.8 mg/dL Normal 1.3-2.4 [facility] Comment on above: Performed By: #### 2 066858, 7740596, 40656396 ####[facility] [address] [place] [address] Message from Medicareon 11-21 Message from Medicare [id number] .00CD:127 Normal [facility] Progress Note-Physicianon Progress Note-Physician Normal [facility] Comment on above: Result Comment: Elec tronically Signed By: Joanie Jiménez MD\.br\Date and Time Signed: 11/30/22 15:13 EDT Progress Note-Physician Normal [facility] Comment on above: Result Comment: Elec tronically Signed By: Lizeth Cedeno MD\.br\Date and Time Signed: 11/30/22 14:52 EDT UA With Cult Reflexon 2022 Bacteria LM Ql (Urine sed) TRACE Normal Trace [facility] Comment on above: Order Comment: Urina ry Catheter Insertion triggered Urinalysis With Culture Reflex order by discern. Performed By: #### 1 3860374 ####[facility] [address] [place] [address] Bilirubin Ql (U) Negative Normal Negative [facility] Comment on above: Order Comment: Urina ry Catheter Insertion triggered Urinalysis With Culture Reflex order by discern. Performed By: #### 1 7259517 ####[facility] [address] [place] [address] Clarity (U) CLEAR Normal Clear [facility] Comment on above: Order Comment: Urina ry Catheter Insertion triggered Urinalysis With Culture Reflex order by discern. Performed By: #### 1 0428201 ####[facility] [address] [place] [address] Color (U) YELLOW Normal Yellow [facility] Comment on above: Order Comment: Urina ry Catheter Insertion triggered Urinalysis With Culture Reflex order by discern. Performed By: #### 1 3725931 ####[facility] [address] [place] [address] Epithelial cells.squamous LM.HPF (Urine sed) [#/Area] 0-2 Normal 0-[address] [facility] Comment on above: Order Comment: Urina ry Catheter Insertion triggered Urinalysis With Culture Reflex order by discern. Performed By: #### 1 2680140 ####[facility] [address] [place] [address] Glucose Test strip (U) [Mass/Vol] Negative Normal Negative [facility] Comment on above: Order Comment: Urina ry Catheter Insertion triggered Urinalysis With Culture Reflex order by discern. Performed By: #### 1 7824125 ####[facility] [address] [place] [address] Hemoglobin Ql (U) Negative Normal Negative [facility] Comment on above: Order Comment: Urina ry Catheter Insertion triggered Urinalysis With Culture Reflex order by discern. Performed By: #### 1 4363165 ####[address] [address] Ketones (U) [Mass/Vol] Negative Normal Negative [facility] Comment on above: Order Comment: Urina ry Catheter Insertion triggered Urinalysis With Culture Reflex order by discern. Performed By: #### 1 6926320 ####[facility] [address] [place] [address] [place].plasma/[place].R BC (Bld) [Mass ratio] 0-3 Normal 0-3 [facility] Comment on above: Order Comment: Urina ry Catheter Insertion triggered Urinalysis With Culture Reflex order by discern. Performed By: #### 1 3245305 ####[facility] [address] [place] [address] Nitrite Ql (U) Negative Normal Negative [facility] Comment on above: Order Comment: Urina ry Catheter Insertion triggered Urinalysis With Culture Reflex order by discern. Performed By: #### 1 2906603 ####[address] [address] pH (U) 6.0 [pH] Invalid Interpretation Code 5.0-9.0 [facility] Comment on above: Order Comment: Urina ry Catheter Insertion triggered Urinalysis With Culture Reflex order by discern. Performed By: #### 1 7888002 ####[facility] [address] [place] [address] Protein (U) [Mass/Vol] Negative Normal Negative [facility] Comment on above: Order Comment: Urina ry Catheter Insertion triggered Urinalysis With Culture Reflex order by discern. Performed By: #### 1 6248043 ####[address] [address] Specific gravity (U) [Rel density] 1.010 Invalid Interpretation Code 1.005-1.030 [facility] Comment on above: Order Comment: Urina ry Catheter Insertion triggered Urinalysis With Culture Reflex order by discern. Performed By: #### 1 1643045 ####[place] [address] Type of Urine collection method Red Normal [facility] Comment on above: Order Comment: Urina ry Catheter Insertion triggered Urinalysis With Culture Reflex order by discern. Performed By: #### 1 5962520 ####[address] [address] Urobilinogen Qn (U) 0.2 {Lei'U}/dL Normal 0.0-1.0 [facility] Comment on above: Order Comment: Urina ry Catheter Insertion triggered Urinalysis With Culture Reflex order by discern. Performed By: #### 1 7605043 ####[address] [address] WBC Auto Ql (U) Negative Normal Negative [facility] Comment on above: Order Comment: Urina ry Catheter Insertion triggered Urinalysis With Culture Reflex order by discern. Performed By: #### 1 0065181 ####[address] [address] WBC casts LM.LPF (Urine sed) [#/Area] 0-3 Normal [facility] Comment on above: Order Comment: Urina ry Catheter Insertion triggered Urinalysis With Culture Reflex order by discern. Performed By: #### 1 0929826 ####[address] [address] WBC LM.HPF (Urine sed) [#/Area] 0-5 Normal 0-5 [facility] Comment on above: Order Comment: Urina ry Catheter Insertion triggered Urinalysis With Culture Reflex order by discern. Performed By: #### 1 5833370 ####[facility] [address] [place] [address] URINALYSISOrdered By: Houston Castillo on 11-30-2022 Bacteria [...] AM) Normal Negative [facility] UA Auto SS [place].plasma/[place].R BC (Bld) [Mass ratio] 0-3 /HPF Normal [...] [facility] UA Auto SS Urobilinogen Qn (U) 0.7717997 {Lei'U}/dL Normal 0.0 - 1.0 EU/dL [facility] UA Auto SS WBC Auto Ql (U) Negative (11/30/22 11:00 AM) Normal Negative [facility] UA Auto SS WBC casts LM.LPF (Urine sed) [#/Area] 0-3 (11/30/22 11:00 AM) Normal [facility] UA Auto SS WBC LM.HPF (Urine sed) [#/Area] 0-5 /HPF Normal 0-5/HPF [facility] UA Auto SS eGFRon 11-30-2022 GFR/1.73 sq M.predicted among non-blacks MDRD (S/P/Bld) [Vol rate/Area] 69 mL/min/1.73 m2 Normal >=59 [facility] Comment on above: Order Comment: Order added by Discern Expert. Result Comment: Corporate Recruiter earnest kidney disease could be indicated at eGFR's of less than 60 mL/min/1.73m2. Kidney failure is indicated at less than 15 mL/min/1.73m2. Performed By: #### 2 305100, 4529505, 66991777 ####[facility] [address] [place] [address] Auto Diffon 11-29-2022 Basophils/100 WBC (Bld) 0.5 % Normal 0.0-2.0 [facility] Comment on above: Order Comment: Order Added by Discern Expert. Performed By: #### 2 963006, 0692451, 5028853, 78175142, 12130983, 6399622, 53149934, 4718748, 38385230, 174900933, 1475698, 3916186 ####[facility] [address] [place] [address] Basophils/Leukocytes Auto (Bld) [Pure # fraction] 0.0 E9/L Normal 0.0-0.2 [facility] Comment on above: Order Comment: Order Added by Discern Expert. Performed By: #### 2 814275, 0005300, 2548339, 31194476, 36235170, 0208534, 09132851, 2738276, 09665891, 352475205, 7665655, 0038315 ####[facility] [address] [place] [address] Eosinophils/100 WBC (Bld) 8.4 % High 0.0-8.0 [facility] Comment on above: Order Comment: Order Added by Discern Expert. Performed By: #### 2 081485, 8895294, 2207300, 73187727, 93098875, 2361433, 91893200, 2770754, 34631324, 052689880, 4309229, 4744426 ####[address] [place] [address] Eosinophils/Leukocytes Auto (Bld) [Pure # fraction] 0.6 E9/L High 0.0-0.5 [facility] Comment on above: Order Comment: Order Added by Discern Expert. Performed By: #### 2 314009, 7359854, 9264718, 12201406, 74041424, 8103650, 55433305, 4349501, 42647639, 090772055, 2824348, 6809141 ####[address] [place] [address] Lymphocytes/100 WBC (Bld) 15.8 % Normal 14.0-50.0 [facility] Comment on above: Order Comment: Order Added by Discern Expert. Performed By: #### 2 929674, 5845682, 5698136, 66778701, 49658437, 4449286, 86181519, 1804503, 20768643, 674504317, 5473708, 8790353 ####[facility] [address] [place] [address] Lymphocytes/Leukocytes Auto (Bld) [Pure # fraction] 1.2 E9/L Normal 1.0-4.0 [facility] Comment on above: Order Comment: Order Added by Discern Expert. Performed By: #### 2 742737, 0450966, 9185823, 27090002, 63732043, 3566754, 97042727, 6977624, 49132348, 664223141, 8473167, 4251868 ####[facility] [address] [place] [address] Monocytes/100 WBC (Bld) 8.4 % Normal 4.0-14.0 [facility] Comment on above: Order Comment: Order Added by Discern Expert. Performed By: #### 2 374498, 0795823, 3406795, 62173368, 25211388, 4126833, 11935416, 0404445, 88575908, 090404034, 0760284, 8763030 ####[facility] [address] [place] [address] Monocytes/Leukocytes Auto (Bld) [Pure # fraction] 0.6 E9/L Normal 0.2-1.0 [facility] Comment on above: Order Comment: Order Added by Discern Expert. Performed By: #### 2 052792, 1970377, 9637044, 10947583, 48688284, 7940697, 87856243, 7114728, 62672990, 321371132, 3556325, 3076061 ####[address] [place] [address] Neutrophils/100 WBC (Bld) 66.9 % Normal 36.0-75.0 [facility] Comment on above: Order Comment: Order Added by Discern Expert. Performed By: #### 2 982534, 7526902, 6870549, 20335470, 44112539, 8491234, 95403383, 9448408, 25962418, 348350735, 8870619, 1919392 ####[facility] [address] [place] [address] Neutrophils/Leukocytes Auto (Bld) [Pure # fraction] 5.0 E9/L Normal 2.0-7.5 [facility] Comment on above: Order Comment: Order Added by Discern Expert. Performed By: #### 2 037744, 7714741, 1397114, 30516940, 72060906, 4993975, 35939410, 2038462, 17316207, 581502050, 1087223, 5305323 ####[facility] [address] [place] [address] BMPon 11-29-2022 Anion gap [Moles/Vol] 13 mmol/L Normal 6-16 [facility] Comment on above: Performed By: #### 2 981625, 4944496, 5560292, 83369369, 57711990, 1788439, 57452001, 4035962, 06116455, 395159491, 6491966, 2241205 ####[facility] [address] [place] [address] Calcium [Mass/Vol] 9.1 mg/dL Normal 8.9-11.1 [facility] Comment on above: Performed By: #### 2 583542, 4445049, 3048558, 37046076, 75501549, 5201571, 83503849, 1153682, 97854828, 182522611, 3298984, 0573504 ####[facility] [address] [place] [address] Chloride [Moles/Vol] 102 mmol/L Normal 101-111 [facility] Comment on above: Performed By: #### 2 705997, 0078622, 6584193, 78461185, 52274367, 9381266, 58263896, 2688523, 07685487, 426132927, 2660828, 5931696 ####[facility] [address] [place] [address] CO2 [Moles/Vol] 29 mmol/L Normal 21-31 [facility] Comment on above: Performed By: #### 2 538819, 7717562, 8858111, 86050650, 66556585, 8394858, 71852259, 6802097, 18329485, 111154485, 7937610, 9573520 ####[facility] [address] [place] [address] Creatinine [Mass/Vol] 1.1 mg/dL Normal 0.5-1.3 [facility] Comment on above: Performed By: #### 2 435739, 3480886, 0842799, 34565880, 68586636, 1766592, 45415658, 6897850, 03948721, 352962318, 4067477, 8591993 ####[facility] [address] [place] [address] Glucose [Mass/Vol] 95 mg/dL Normal 55-199 [facility] Comment on above: Result Comment: If t his glucose result represents a fasting glucose, interpretation should refer to the following reference range: 55-99 mg/dL Performed By: #### 2 057209, 6351730, 2421377, 71219126, 62801096, 3116878, 11125840, 4166723, 25118988, 672148197, 5890308, 6416170 ####[facility] [address] [place] [address] Potassium [Moles/Vol] 3.9 mmol/L Normal 3.5-5.3 [facility] Comment on above: Performed By: #### 2 744169, 3042750, 4728566, 16070333, 82467066, 2036809, 99043669, 3116752, 98289202, 053317242, 2875411, 8352786 ####[facility] [address] [place] [address] Sodium [Moles/Vol] 140 mmol/L Normal 135-145 [facility] Comment on above: Performed By: #### 2 730297, 4992388, 1571698, 97870020, 90570114, 8028754, 31387725, 2801408, 71582429, 619498728, 1555975, 2362346 ####[facility] [address] [place] [address] Urea nitrogen [Mass/Vol] 16 mg/dL Normal 5-21 [facility] Comment on above: Performed By: #### 2 137711, 2711714, 5293444, 49391405, 03042571, 6078321, 29185634, 0521472, 97875648, 510265924, 7498767, 9701090 ####[facility] [address] [place] [address] Urea nitrogen/Creatinine [Mass ratio] 14 No Units Normal 10-20 [facility] Comment on above: Performed By: #### 2 008265, 9925751, 2338854, 20176090, 19203236, 0313428, 74558929, 7911772, 13235470, 823921169, 7247071, 7091513 ####[facility] [address] [place] [address] BNPon 11-29-2022 Natriuretic peptide B (Bld) [Mass/Vol] 855 pg/mL High 5-80 [facility] Comment on above: Performed By: #### 2 110228, 2484176, 4423820, 14337880, 13865926, 6007329, 58003018, 8842697, 49465461, 149782288, 1905179, 2199407 ####[facility] [address] [place] [address] CBC w/ Auto Diffon 3 Erythrocyte distribution width (RBC) [Ratio] 14.9 % High 10.9-14.2 [facility] Comment on above: Performed By: #### 2 775676, 3582689, 6422114, 01779467, 32788137, 4215491, 02465269, 9170684, 82521276, 862813870, 3445845, 3986977 ####[facility] [address] [place] [address] Hematocrit (Bld) [Volume fraction] 38.1 % Normal 37.7-49.0 [facility] Comment on above: Performed By: #### 2 815426, 1574620, 9098466, 22663730, 92957654, 2938567, 20777327, 2380151, 26129803, 501897878, 5016731, 2209792 ####[facility] [address] [place] [address] Hemoglobin (Bld) [Mass/Vol] 12.8 g/dL Low 13.5-17.5 [facility] Comment on above: Performed By: #### 2 010514, 8748327, 7334017, 30860493, 46084136, 8809007, 99903733, 7273576, 76110585, 687313666, 2882747, 6423115 ####[facility] [address] [place] [address] MCH (RBC) [Entitic mass] 29.0 pg Normal 27.0-34.0 [facility] Comment on above: Performed By: #### 2 015797, 5719491, 2978763, 18625756, 65159948, 6116519, 47781853, 7392000, 30733105, 015646384, 9339649, 0719424 ####[address] [address] MCHC (RBC) [Mass/Vol] 33.7 g/dL Normal 31.4-36.0 [facility] Comment on above: Performed By: #### 2 563825, 9858735, 7246112, 55405895, 84760775, 2845883, 86065703, 0208523, 53973640, 799574943, 2408380, 9743625 ####[facility] [address] [place] [address] MCV (RBC) [Entitic vol] 86.1 fL Normal 80.0-100.0 [facility] Comment on above: Performed By: #### 2 081359, 3308812, 2365883, 51633338, 18508289, 2049881, 73878399, 1513665, 29076877, 072456115, 6955028, 7071274 ####[facility] [address] [place] [address] Platelet mean volume (Bld) [Entitic vol] 10.9 fL High 6.4-10.8 [facility] [facility] Comment on above: Performed By: #### 2 869204, 7105135, 8009555, 44190478, 50066402, 0588260, 10076565, 5766292, 73615877, 626897058, 8356179, 1582296 ####[facility] [address] [place] [address] Platelets (Bld) [#/Vol] 189.0 E9/L Normal 150.0-500.0 [facility] Comment on above: Performed By: #### 2 240881, 7556506, 0301201, 79089578, 56724729, 1470245, 81007459, 1781160, 88759166, 891198832, 6564518, 8969480 ####[address] [place] [address] RBC (Bld) [#/Vol] 4.4 E12/L Normal 4.3-5.9 [facility] Comment on above: Performed By: #### 2 740481, 2967053, 8836763, 93673530, 40374198, 0784127, 33778375, 6322594, 33624078, 418500863, 2421109, 2216560 ####[facility] [address] [place] [address] WBC corrected for nucl RBC Auto (Bld) [#/Vol] 7.4 E9/L Normal 4.0-11.0 [facility] Comment on above: Performed By: #### 2 096466, 7208300, 1904191, 43486746, 08533115, 2710180, 58713527, 5532007, 64401070, 920325933, 2135196, 3742068 ####[facility] [address] [place] [address] CHEMISTRYOrdered By: SYSTEM SYSTEM on 11-29-2022 Albumin [...] 855 pg/mL High 5 - 80 pg/mL [facility] HemeManSS CHEMISTRYOrdered By: Marian peterson DomainUser on 11-29-2022 Calcium.ionized ISE [Mass/Vol] 4.8 mg/dL Invalid Interpretation Code 4.5-5.6mg/d L [facility] SendOutsSS Comment on above: Result Comment: Perf ormed at: CB [facility] [address] [id number] PhD Michael Cotres CKon 11-29-2022 CK [Catalytic activity/Vol] 1096 Int._Unit/L Abnormal 14-261 [facility] Comment on above: Result Comment: Crit ical Result verified by repeat analysis\Critical Result S_CK:1096 Called to MANAS BARBA AT by AMY JOHNSON and read back for confirmation at 11/29/2022 06:40:15 Performed By: #### 2 095893, 9610795, 3225824, 42323395, 41953463, 3637473, 89310331, 9458556, 92350824, 551560735, 9466142, 0358743 ####[facility] [address] [place] [address] CT Abdomen/Pelvis w/ Contras ton 11-29-2022 CT Abdomen/Pelvis w/ Contrast Normal [facility] CT Head or Brain w/o Contras ton 11-29-2022 CT Head or Brain w/o Contrast Normal [facility] CTA Cheston 11-29-2022 CTA Chest Normal [facility] Capillary Glucose POCon Glucose [Mass/Vol] 122 mg/dL High 55-99 [facility] Comment on above: Result Comment: Gareth guerrero RN/ Performed By: #### 2 [id number] ####[facility] [address] [place] [address] Glucose [Mass/Vol] 174 mg/dL High 55-99 [facility] Comment on above: Performed By: #### 2 [id number] ####[facility] [address] [place] [address] Glucose [Mass/Vol] 107 mg/dL High 55-99 [facility] Comment on above: Result Comment: Gareth GARDINER Performed By: #### 2 [id number] ####[facility] [address] [place] [address] Consultation Noteon 11-30-19 Consultation Note Normal [facility] Comment on above: Result Comment: Elec tronically Signed By: Marcus POTTS, [place]\Date and Time Signed: 11/29/22 14:44 EDT ED Clinical Summaryon 2022 ED Clinical Summary Normal [facility] ED Note-Physicianon 11-30-19 ED Note-Physician Normal [facility] Comment on above: Result Comment: Elec tronically Signed By: Elkin Hitchcock DO\.br\Date and Time Signed: 11/28/22 22:32 EDT ED Patient Education Noteon 11-29-2022 ED Patient Education Note Normal [facility] ED Patient Summaryon 023 ED Patient Summary Normal [facility] HEMATOLOGYOrdered By: SYSTEM SYSTEM on 11-29-2022 Basophils/100 [...] pg Normal 27. 0 - 34.0 pg [facility] HemeAutoSS MCHC (RBC) [Mass/Vol] 33.7 g/dL Normal 31.4 - 36.0 gm/dL FT HemeAutoSS MCV (RBC) [Entitic vol] 86.1 fL Normal 80.0 - 100.0 fL [facility] HemeAutoSS Platelet mean volume (Bld) [Entitic vol] 10.9 fL High 6.4 - 10.8 fL FT HemeAutoSS Platelets (Bld) [#/Vol] 189.0 E9/L Normal 150. 0 - 500.0 E9/L FT HemeAutoSS RBC (Bld) [#/Vol] 4.4 E12/L Normal 4.3 - 5.9 E12/L [facility] HemeAutoSS Sed Rate Automated 17 mm/h Normal 0 - 19 mm/hr [facility] HemeAutoSS WBC corrected for nucl RBC Auto (Bld) [#/Vol] 7.4 E9/L Normal 4.0 - 11.0 E9/L [facility] HemeAutoSS Hep Func Panelon 11-29-2022 Albumin [Mass/Vol] 3.6 g/dL Normal 3.3-5.0 [facility] Comment on above: Performed By: #### 2 279438, 7822140, 2068288, 96522840, 12410214, 4083184, 08095656, 4039147, 28204657, 729931855, 8696995, 9316612 ####[facility] [address] [place] [address] Albumin/Globulin (S) [Mass conc ratio] 1.2 Normal 1.1-2.2 [facility] Comment on above: Performed By: #### 2 702721, 4163124, 4116229, 51901470, 05641045, 1755295, 25592406, 0326275, 77085331, 078101510, 0585773, 7611723 ####[facility] [address] [place] [address] ALP [Catalytic activity/Vol] 40 Int._Unit/L Normal 21-98 [facility] Comment on above: Performed By: #### 2 296311, 0389534, 9876049, 18415268, 89069650, 8052684, 72556217, 3566620, 07151261, 367990385, 2787297, 1451566 ####[facility] [address] [place] [address] ALT No additional P-5'-P [Catalytic activity/Vol] 17 Int._Unit/L Normal 6-46 [facility] Comment on above: Performed By: #### 2 973116, 3045908, 4275790, 47444749, 91170696, 4423276, 79493133, 9778149, 89456283, 130971426, 7151811, 3071176 ####[facility] [address] [place] [address] AST [Catalytic activity/Vol] 33 Int._Unit/L Normal 5-43 [facility] Comment on above: Performed By: #### 2 472157, 2350202, 5206141, 83451000, 59672416, 3395928, 61057687, 6931856, 13715470, 355610693, 9743807, 0291174 ####[facility] [address] [place] [address] Bilirubin [Mass/Vol] 1.1 mg/dL Normal 0.0-1.1 [facility] Comment on above: Performed By: #### 2 471562, 0347319, 1072240, 26681910, 05566892, 3551466, 98396635, 5475693, 56472756, 495235908, 7690132, 6643221 ####[facility] [address] [place] [address] Bilirubin.direct [Mass/Vol] 0.2 mg/dL Normal 0.1-0.4 [facility] Comment on above: Performed By: #### 2 268412, 9653896, 3906720, 66300237, 53747185, 9972543, 39740060, 6956809, 22019665, 231367221, 0889938, 3033574 ####[facility] [address] [place] [address] Bilirubin.indirect [Mass or moles/Vol] 0.9 mg/dL Normal 0.1-0.9 [facility] Comment on above: Performed By: #### 2 372701, 8355628, 5431042, 40573735, 41160672, 9072679, 13680043, 2531983, 30718663, 322324840, 9823592, 2636147 ####[facility] [address] [place] [address] Globulin (S) [Mass/Vol] 3.1 g/dL Normal 1.4-4.0 [facility] Comment on above: Performed By: #### 2 894580, 3500616, 6783440, 27954964, 53695060, 5425263, 75970995, 9402430, 45764002, 882870676, 8238358, 8490364 ####[facility] [address] [place] [address] Protein [Mass/Vol] 6.7 g/dL Normal 6.0-7.8 [facility] Comment on above: Performed By: #### 2 412309, 2066904, 9787610, 46241106, 72763351, 8729038, 44579161, 9146031, 19091295, 937917012, 3116045, 2534717 ####[facility] [address] [place] [address] Interdisciplinary Note - Santosh e Manageron 11-29-2022 Interdisciplinary Note - Structural Shop Helper Normal [facility] Comment on above: Result Comment: Elec tronically Signed By: Jose HAYDEN, Norma\.br\Date and Time Signed: 11/29/22 15:07 EDT Lipid Panelon 11-29-2022 Cholesterol [Mass/Vol] 114 mg/dL Low 120-200 [facility] Comment on above: Performed By: #### 2 670259, 2520964, 0273214, 57926693, 76854329, 6122901, 94578320, 9780223, 70401124, 351868724, 4242375, 9631805 ####[facility] [address] [place] [address] Cholesterol in HDL [Mass/Vol] 50 mg/dL Invalid Interpretation Code [facility] Comment on above: Result Comment: HDL > or equal to 60 mg/dL: Low cardiovascular riskHDL < 40 mg/dL : High cardiovascular risk Performed By: #### 2 760311, 3919683, 2129713, 75157878, 86153626, 6749330, 24564079, 3316210, 99048817, 057605457, 9349764, 9434358 ####[facility] [address] [place] [address] Cholesterol in LDL [Mass/Vol] 43 mg/dL Normal <=129 [facility] Comment on above: Performed By: #### 2 684099, 5588501, 2756184, 30195695, 45506587, 3893196, 05271771, 7755109, 76582995, 758302566, 1742964, 4770208 ####[facility] [address] [place] [address] Cholesterol in VLDL [Mass/Vol] 14 mg/dL Normal 7-40 [facility] Comment on above: Performed By: #### 2 792205, 5301692, 9773723, 20553017, 96622447, 8143953, 20291880, 1728333, 00919097, 747991748, 7323332, 5179711 ####[facility] [address] [place] [address] Triglyceride [Mass/Vol] 72 mg/dL Normal <=149 [facility] Comment on above: Performed By: #### 2 435983, 8495310, 2602013, 05184932, 15207107, 4288189, 44579974, 3894922, 89627032, 745506157, 1931329, 6256845 ####[facility] [address] [place] [address] Monitor Recordon 11-29-2022 Monitor Record [id number]# 1.00CD:127 Normal [facility] Monitor Record [id number] 7 [id number]# 1.00CD:127 Normal [facility] Monitor Record [id number]# 1.00CD:127 Normal [facility] Monitor Record [id number] 7 [id number]# 1.00CD:127 Normal [facility] Monitor Record [id number] 7 [id number]# 1.00CD:127 Normal [facility] Monitor Record [id number] 7 [id number]# 1.00CD:127 Normal [facility] Monitor Record [id number] 7 [id number]# 1.00CD:127 Normal [facility] Monitor Record [id number]# 1.00CD:127 Normal [facility] Progress Note-Physicianon Progress Note-Physician Normal [facility] Comment on above: Result Comment: Elec tronically Signed By: Alex STEIN, [place]\.br\Date and Time Signed: 11/29/22 10:54 EDT RAD - Preliminary Cat Scan R eporton 11-29-2022 RAD - Preliminary Cat Scan Report [id number] #1.00CD:127 Normal [facility] Sed Rate Automatedon 023 Sed Rate Automated 17 mm/hr Normal 0-19 [facility] Comment on above: Performed By: #### 2 591320, 3500364, 7926492, 97739610, 62369713, 2360441, 23619396, 5745996, 78402288, 722747852, 3646799, 8777150 ####[facility] [address] [place] [address] TSH With T4fr Reflexon 11-29 TSH Qn 3.43 m[IU]/L Normal 0.34-5.60 [facility] Comment on above: Performed By: #### 2 669358, 3308270, 8878779, 38567359, 06887162, 3932473, 48626327, 6346149, 45879242, 155637226, 8322057, 5045021 ####[facility] [address] [place] [address] Troponin 6 Hr.on 11-29-2022 Troponin I.cardiac [Mass/Vol] 32.60 pg/mL Normal 15.90-38.40 [facility] Comment on above: Result Comment: The 95% CI (Confidence Interval) PPV (Positive Predictive Value) for myocardial infarction in females is 38 pg/mL, in males 51 pg/mL. The results should be used in conjunction with clinical conditions of myocardial infarction.(Access High Sensitivity Troponin I Instructions For Use, [employer], December 2017) Performed By: #### 1 5792113 ####[facility] [address] [place] [address] Troponin 9 Hr.on 11-29-2022 Troponin I.cardiac [Mass/Vol] 37.00 pg/mL Normal 15.90-38.40 [facility] Comment on above: Result Comment: The 95% CI (Confidence Interval) PPV (Positive Predictive Value) for myocardial infarction in females is 38 pg/mL, in males 51 pg/mL. The results should be used in conjunction with clinical conditions of myocardial infarction.(Access High Sensitivity Troponin I Instructions For Use, [employer], December 2017) Performed By: #### 1 9626634 ####[facility] [address] [place] [address] Vitamin D 25 Hydroxyon 11-29 25-hydroxyvitamin D3 [Mass/Vol] ng/mL Low 30.0-100.0 [facility] Comment on above: Result Comment: Vit palacios D deficiency has been defined as a level of serum 25-OH vitamin D less than 20 ng/mL (1,2) by the [employer] of [employer] and an Endocrine Society practice guideline. The Endocrine Society further defined vitamin D insufficiency as a level between 21 and 29 ng/mL (2). 1. IOM (Groom of Medicine). 2010. Dietary reference intakes for calcium and D. [place]: The National Academies Press. 2. Patricia MF, Parisa AGUIRRE, Reji PETERS, et al. Evaluation, treatment, and prevention of vitamin D deficiency: an Endocrine Society clinical practice guideline. JCEM. 2010; 96 (7):1911-30. Performed By: #### 2 302160, 8531877, 9287037, 08015213, 86048315, 3058539, 52943182, 1472664, 23476129, 662285932, 6184730, 6567045 ####[facility] [address] [place] [address] eGFRon 11-29-2022 GFR/1.73 sq M.predicted among non-blacks MDRD (S/P/Bld) [Vol rate/Area] 69 mL/min/1.73 m2 Normal >=59 [facility] Comment on above: Order Comment: Order added by Discern Expert. Result Comment: Corporate Recruiter earnest kidney disease could be indicated at eGFR's of less than 60 mL/min/1.73m2. Kidney failure is indicated at less than 15 mL/min/1.73m2. Performed By: #### 2 190392, 1793976, 6038832, 94033782, 61052736, 8606344, 66737281, 7351741, 27922388, 688811186, 2469612, 8996170 ####[facility] [address] [place] [address] Auto Diffon 11-28-2022 Basophils/100 WBC (Bld) 0.7 % Normal 0.0-2.0 [facility] Comment on above: Order Comment: Order Added by Discern Expert. Performed By: #### 1 6724138, 4428221, 6093641, 5954098, 25917169 ####[facility] [address] [place] [address] Basophils/Leukocytes Auto (Bld) [Pure # fraction] 0.0 E9/L Normal 0.0-0.2 [facility] Comment on above: Order Comment: Order Added by Discern Expert. Performed By: #### 1 6828355, 6861431, 8671353, 6491229, 86768370 ####[address] [place] [address] Eosinophils/100 WBC (Bld) 7.4 % Normal 0.0-8.0 [facility] Comment on above: Order Comment: Order Added by Discern Expert. Performed By: #### 1 5625844, 4668781, 8869528, 7744543, 77988269 ####[address] [place] [address] Eosinophils/Leukocytes Auto (Bld) [Pure # fraction] 0.5 E9/L Normal 0.0-0.5 [facility] Comment on above: Order Comment: Order Added by Discern Expert. Performed By: #### 1 8980647, 6683860, 7010779, 6273265, 41851550 ####[address] [address] Lymphocytes/100 WBC (Bld) 9.3 % Low 14.0-50.0 [facility] Comment on above: Order Comment: Order Added by Bethany Expert. Performed By: #### 1 3911807, 2436709, 9225743, 3833033, 59475967 ####[address] [address] Lymphocytes/Leukocytes Auto (Bld) [Pure # fraction] 0.7 E9/L Low 1.0-4.0 [facility] Comment on above: Order Comment: Order Added by Bethany Expert. Performed By: #### 1 5917215, 8176254, 8379960, 5870565, 33878879 ####[address] [address] Monocytes/100 WBC (Bld) 6.6 % Normal 4.0-14.0 [facility] Comment on above: Order Comment: Order Added by Bethany Expert. Performed By: #### 1 4092978, 9424552, 1461991, 2729989, 95772110 ####[address] [place] [address] Monocytes/Leukocytes Auto (Bld) [Pure # fraction] 0.5 E9/L Normal 0.2-1.0 [facility] Comment on above: Order Comment: Order Added by Discern Expert. Performed By: #### 1 9678351, 7904296, 0692122, 8140886, 16370145 ####[address] [place] [address] Neutrophils/100 WBC (Bld) 76.0 % High 36.0-75.0 [facility] Comment on above: Order Comment: Order Added by Bethany Expert. Performed By: #### 1 2966614, 8605867, 4625940, 5940953, 32674611 ####[address] [place] [address] Neutrophils/Leukocytes Auto (Bld) [Pure # fraction] 5.4 E9/L Normal 2.0-7.5 [facility] Comment on above: Order Comment: Order Added by Bethany Expert. Performed By: #### 1 2571932, 1022601, 5592921, 6199514, 48085842 ####[address] [place] [address] BMPon 11-28-2022 Creatinine [Mass/Vol] 1.0 mg/dL Normal 0.5-1.3 [facility] Comment on above: Performed By: #### 1 8790366, 8578292, 9456440, 9884118, 60075146 ####[address] [place] [address] Urea nitrogen [Mass/Vol] 16 mg/dL Normal 5-21 [facility] Comment on above: Performed By: #### 1 1454116, 7824126, 8586151, 3132783, 15270216 ####[address] [place] [address] Urea nitrogen/Creatinine [Mass ratio] 16 No Units Normal 10-20 [facility] Comment on above: Performed By: #### 1 6679878, 7060872, 7939657, 1188580, 80488116 ####[facility] [address] [facility] [place] [address] Anion gap [Moles/Vol] 10 mmol/L Normal 6-16 [facility] Comment on above: Performed By: #### 1 4752199, 9809041, 5687206, 8757569, 83082894 ####[facility] [address] [place] [address] Calcium [Mass/Vol] 8.8 mg/dL Low 8.9-11.1 [facility] Comment on above: Performed By: #### 1 1028322, 1333372, 3652077, 7975319, 88732341 ####[facility] [address] [place] [address] Chloride [Moles/Vol] 105 mmol/L Normal 101-111 [facility] Comment on above: Performed By: #### 1 5275220, 7974940, 2035729, 7490979, 27787547 ####[facility] [address] [place] [address] CO2 [Moles/Vol] 28 mmol/L Normal 21-31 [facility] Comment on above: Performed By: #### 1 4541081, 6299274, 5122206, 7202108, 05428968 ####[facility] [address] [facility] [place] [address] Glucose [Mass/Vol] 114 mg/dL Normal 55-199 [facility] Comment on above: Result Comment: If t his glucose result represents a fasting glucose, interpretation should refer to the following reference range: 55-99 mg/dL Performed By: #### 1 4797713, 6895249, 4661775, 1465410, 98972107 ####[facility] [address] [facility] [place] [address] Potassium [Moles/Vol] 4.1 mmol/L Normal 3.5-5.3 [facility] Comment on above: Performed By: #### 1 3129360, 3277040, 3341301, 2606519, 19504148 ####[facility] [address] [place] [address] Sodium [Moles/Vol] 139 mmol/L Normal 135-145 [facility] Comment on above: Performed By: #### 1 5277437, 8379270, 2078185, 8411403, 13659660 ####[facility] [address] [place] [address] Blood Gas Art, with Lytes, G christal, [place] 11-28-2022 a/A Ratio Art 53.40 % Normal >=0.[address] [facility] Comment on above: Performed By: #### 4 16852349 ####[facility] [address] [place] [address] AaDO2 Art 64.9 mmHg High 5.0-15.0 [facility] Comment on above: Performed By: #### 4 77260753 ####[facility] [address] [place] [address] Allens Test Positive Normal [facility] Comment on above: Performed By: #### 4 24151806 ####[facility] [address] [place] [address] Base Excess Arterial 2.9 mmol/L Normal >=2.[address] [facility] Comment on above: Performed By: #### 4 73067914 ####[facility] [address] [place] [address] cCa2+ Art 4.88 mg/dL Normal 4.40-5.30 [facility] Comment on above: Performed By: #### 4 15092444 ####[facility] [address] [place] [address] cCl- Art 103.0 mmol/L Normal 101.0-111.[address] [facility] Comment on above: Performed By: #### 4 55334510 ####[facility] [address] [place] [address] cGlu Art 98 mg/dL Normal 55-99 [facility] Comment on above: Performed By: #### 4 44544967 ####[facility] [address] [place] [address] cK+ Art 3.6 mmol/L Normal 3.5-5.3 [facility] Comment on above: Performed By: #### 4 19285131 ####[address] [place] [address] cLac Art .6 mmol/L Normal .5-2.2 [facility] Comment on above: Performed By: #### 4 83444880 ####[address] [address] clothing trades workers+ Art 139.0 mmol/L Normal 135.0-145.[address] [facility] Comment on above: Performed By: #### 4 91653519 ####[address] [address] Drawn by nmb Invalid Interpretation Code [facility] Comment on above: Performed By: #### 4 32378756 ####[address] [place] [address] FCOHb Art 1.5 % Normal 1.5-4.9 [facility] Comment on above: Result Comment: Refe rence rangeNonsmoker <1.5%Smoker <5.0%Heavy Smoker <9.0% Performed By: #### 4 19183439 ####[facility] [address] [place] [address] FIO2 BG 28 Invalid Interpretation Code [facility] Comment on above: Performed By: #### 4 25860013 ####[facility] [address] [place] [address] Flow 2 Invalid Interpretation Code [facility] Comment on above: Performed By: #### 4 78488758 ####[facility] [address] [place] [address] FMetHb Art 0.3 % Normal 0.0-1.9 [facility] Comment on above: Performed By: #### 4 32890011 ####[address] [address] FO2Hb Art 93.7 % Normal 93.0-100.0 [facility] Comment on above: Performed By: #### 4 99737922 ####[address] [address] HCO3 (Bld) [Moles/Vol] 26.9 mmol/L High 22.0-26.0 [facility] Comment on above: Performed By: #### 4 61160900 ####[address] [address] Hemoglobin (Bld) [Mass/Vol] 11.9 g/dL Low 12.0-17.0 [facility] Comment on above: Performed By: #### 4 21210122 ####[address] [address] Oxygen saturation in Blood 95.4 % Normal 95.0-100.0 [facility] Comment on above: Performed By: #### 4 34064930 ####[address] [address] P CO2 Arterial 47.6 mmHg High 35.0-45.0 [facility] Comment on above: Performed By: #### 4 34961806 ####[address] [address] P O2 Arterial 74.3 mmHg Low 80.0-100.[address] [facility] Comment on above: Performed By: #### 4 09816315 ####[address] [address] pH Arterial 7.387 Normal 7.350-7.450 [facility] Comment on above: Performed By: #### 4 82051551 ####[address] [address] Sample Site R Radial Normal [facility] Comment on above: Performed By: #### 4 50743624 ####[facility] [address] [place] [address] Sample Type Arterial Draw Normal [facility] Comment on above: Performed By: #### 4 11653186 ####[facility] [address] [place] [address]257 CBC w/ Auto Diffon Erythrocyte distribution width (RBC) [Ratio] 14.8 % High 10.9-14.2 [facility] Comment on above: Performed By: #### 1 9915331, 2669882, 7904623, 9514149, 16079588 ####[place] [address] [place] [id number] Hematocrit (Bld) [Volume fraction] 37.3 % Low 37.7-49.0 [facility] Comment on above: Performed By: #### 1 3547644, 6216310, 7222488, 8983087, 88066319 ####[facility] [address] [place] 6273257 Hemoglobin (Bld) [Mass/Vol] 12.3 g/dL Low 13.5-17.5 [facility] Comment on above: Performed By: #### 1 3971034, 5536279, 6898498, 3953510, 94573349 ####[facility] [address] [place] 6273257 MCH (RBC) [Entitic mass] 28.3 pg Normal 27.0-34.0 [facility] Comment on above: Performed By: #### 1 4793187, 4773792, 2680084, 1068589, 10245381 ####[facility] [address] [place] [address] MCHC (RBC) [Mass/Vol] 33.0 g/dL Normal 31.4-36.0 [facility] Comment on above: Performed By: #### 1 8143266, 2926171, 7840292, 9876196, 60646062 ####[address] [address] MCV (RBC) [Entitic vol] 85.9 fL Normal 80.0-100.0 [facility] Comment on above: Performed By: #### 1 0848879, 7116411, 5196926, 9241417, 13798523 ####[address] [address] Platelet mean volume (Bld) [Entitic vol] 10.4 fL Normal 6.4-10.8 [facility] Comment on above: Performed By: #### 1 0130593, 1507565, 7449703, 2428163, 76013487 ####[address] [address] Platelets (Bld) [#/Vol] 189.0 E9/L Normal 150.0-500.0 [facility] Comment on above: Performed By: #### 1 4470323, 4981407, 1627694, 7014474, 02198682 ####[address] [address] RBC (Bld) [#/Vol] 4.3 E12/L Normal 4.3-5.9 [facility] Comment on above: Performed By: #### 1 0095596, 6110868, 8808074, 1566057, 98944592 ####[address] [address] WBC corrected for nucl RBC Auto (Bld) [#/Vol] 7.1 E9/L Normal 4.0-11.0 [facility] Comment on above: Performed By: #### 1 5530410, 2408783, 6853533, 3288228, 75811142 ####[address] [address] CHEMISTRYOrdered By: SYSTEM SYSTEM on 11-28-2022 Troponin I.cardiac [Mass/Vol] 32.60 pg/mL Normal 15.90 - 38.40 pg/mL [facility] Troponin I.cardiac [Mass/Vol] 26.90 pg/mL Normal 15.90 - 38.40 pg/mL [facility] Remisol Consent for Treatmenton Consent for Treatment [id number]#1 .00CD:127 Normal [facility] ED Note-Physicianon 11-29-19 ED Note-Physician Normal [facility] Comment on above: Result Comment: [...] - 2.2 mmol/L FT Resp Auto SS clothing trades workers+ Art 139.0 mmol/L Normal 135.0 - 145.0 mmol/L FT Resp Auto SS Drawn by nmb Invalid Interpretation Code FT Resp Auto SS FCOHb Art 1.5 % Normal 1.5 - 4.9 % FT Resp Auto SS FIO2 BG 28 Invalid Interpretation Code FT Resp Auto SS Flow 2 Invalid Interpretation Code [facility] Resp Auto SS FMetHb Art 0.3 % Normal 0.0 - 1.9 % FT Resp Auto SS FO2Hb Art 93.7 % Normal 93.0 - 100.0 % FT Resp Auto SS HCO3 (Bld) [Moles/Vol] 26.9 mmol/L High 22.0 - 26.0 mmol/L [facility] Resp Auto SS Hemoglobin (Bld) [Mass/Vol] 11.9 g/dL Low 12.0 - 17.0 gm/dL [facility] Resp Auto SS P CO2 Arterial 47.6 mm[Hg] High 35.0 - 45.0 mmHg [facility] Resp Auto SS P O2 Arterial 74.3 mm[Hg] Low 80.0 - 100.0 mmHg [facility] Resp Auto SS pH Arterial 7.387 Normal 7.350 - 7.450 [facility] Resp Auto SS Sample Site R Radial (11/28/22 6:55 PM) Normal [facility] Resp Auto SS Sample Type Arterial Draw (11/28/22 6:55 PM) Normal [facility] Resp Auto SS HEMATOLOGYOrdered By: SYSTEM SYSTEM [...] Pre-Arrival Noteon Pre-Arrival Note Normal [facility] Troponin 0 Hr.on 11-28-2022 Troponin I.cardiac [Mass/Vol] 21.80 pg/mL Normal 15.90-38.40 [facility] Comment on above: Result Comment: The 95% CI (Confidence Interval) PPV (Positive Predictive Value) for myocardial infarction in females is 38 pg/mL, in males 51 pg/mL. The results should be used in conjunction with clinical conditions of myocardial infarction.(Access High Sensitivity Troponin I Instructions For Use, Claudia Luis, December 2017) Performed By: #### 1 6167560, 2596059, 7989394, 7660945, 59111072 ####[facility] [address] [place] [address] Troponin 3 Hr.on 11-28-2022 Troponin I.cardiac [Mass/Vol] 26.90 pg/mL Normal 15.90-38.40 [facility] Comment on above: Result Comment: The 95% CI (Confidence Interval) PPV (Positive Predictive Value) for myocardial infarction in females is 38 pg/mL, in males 51 pg/mL. The results should be used in conjunction with clinical conditions of myocardial infarction.(Access High Sensitivity Troponin I Instructions For Use, Claudia [place], December 2017) Performed By: #### 1 [id number] ####[facility] [address] [place] [address] UA With Cult Reflexon 2022 Crystals LM Ql (Urine sed) Present Normal [facility] Comment on above: Performed By: #### 1 5622810 ####[address] [address] Epithelial cells.squamous LM.HPF (Urine sed) [#/Area] 0-2 Normal 0-[address] [facility] Comment on above: Performed By: #### 1 3026048 ####[address] [address] [place].plasma/[place].R BC (Bld) [Mass ratio] 0-3 Normal 0-3 [facility] Comment on above: Performed By: #### 1 7720278 ####[facility] [address] [place] [address] Mucus Ql (Urine sed) TRACE Normal [facility] Comment on above: Performed By: #### 1 6667348 ####[address] [address] WBC LM.HPF (Urine sed) [#/Area] 0-5 Normal 0-5 [facility] Comment on above: Performed By: #### 1 7538235 ####[address] [address] Bilirubin Ql (U) Negative Normal Negative [facility] Comment on above: Performed By: #### 1 7390691 ####[facility] [address] [place] [address] Clarity (U) CLEAR Normal Clear [facility] Comment on above: Performed By: #### 1 0461687 ####[facility] [address] [place] [address] Color (U) YELLOW Normal Yellow [facility] Comment on above: Performed By: #### 1 3459442 ####[facility] [address] [place] [address] Glucose Test strip (U) [Mass/Vol] Negative Normal Negative [facility] Comment on above: Performed By: #### 1 5938460 ####[facility] [address] [place] [address] Hemoglobin Ql (U) Negative Normal Negative [facility] Comment on above: Performed By: #### 1 7389728 ####[address] [address] Ketones (U) [Mass/Vol] Negative Normal Negative [facility] Comment on above: Performed By: #### 1 4975590 ####[address] [address] Nitrite Ql (U) Negative Normal Negative [facility] Comment on above: Performed By: #### 1 9926481 ####[facility] [address] [place] [address] pH (U) 6.0 [pH] Invalid Interpretation Code 5.0-9.0 [facility] Comment on above: Performed By: #### 1 1658421 ####[facility] [address] [place] [address] Protein (U) [Mass/Vol] 2+ Abnormal Negative [facility] Comment on above: Performed By: #### 1 3525035 ####[place] [address] [place] [address] Specific gravity (U) [Rel density] 1.025 Invalid Interpretation Code 1.005-1.030 [facility] Comment on above: Performed By: #### 1 1849175 ####[address] [address] Type of Urine collection method Clean Catch Normal [facility] Comment on above: Performed By: #### 1 6156009 ####[facility] [address] [place] [address] Urobilinogen Qn (U) 0.2 {Lei'U}/dL Normal 0.0-1.0 [facility] Comment on above: Performed By: #### 1 6792233 ####[facility] [address] [place] [address] WBC Auto Ql (U) Negative Normal Negative [facility] Comment on above: Performed By: #### 1 8111239 ####[facility] [address] [place] [address] URINALYSISOrdered By: Emily Suero on 11-28-2022 Bilirubin [...] PM) Normal Negative [facility] UA Auto SS [place].plasma/[place].R BC (Bld) [Mass ratio] 0-3 /HPF Normal [...] [facility] UA Auto SS Urobilinogen Qn (U) 0.9897492 {Lei'U}/dL Normal 0.0 - 1.0 EU/dL [facility] UA Auto SS WBC Auto Ql (U) Negative (11/28/22 5:55 PM) Normal Negative [facility] UA Auto SS WBC LM.HPF (Urine sed) [#/Area] 0-5 /HPF Normal 0-5/HPF [facility] UA Auto SS XR Chest Single Viewon 11-28 XR Chest Single View Normal [facility] eGFRon 11-28-2022 GFR/1.73 sq M.predicted among non-blacks MDRD (S/P/Bld) [Vol rate/Area] 77 mL/min/1.73 m2 Normal >=59 [facility] Comment on above: Order Comment: Order added by Discern Expert. Result Comment: Corporate Recruiter earnest kidney disease could be indicated at eGFR's of less than 60 mL/min/1.73m2. Kidney failure is indicated at less than 15 mL/min/1.73m2. Performed By: #### 1 9021509, 1761530, 0220876, 0927420, 46187886 ####[facility] [address] [place] 6273257 CHEMISTRYOrdered By: SYSTEM SYSTEM on 11-26-2022 Albumin [...] 2.07 m[IU]/L Normal 0.34 - 5.60 mcIU/mL [facility] Remisol Urea nitrogen [Mass/Vol] 18 mg/dL Normal 5 - 21 mg/dL [facility] Remisol Urea nitrogen/Creatinine [Mass ratio] 20 mg/mg Normal 10 - 20 [facility] Remisol CMPon 11-26-2022 Albumin [Mass/Vol] 3.7 g/dL Normal 3.3-5.0 [facility] Comment on above: Performed By: #### 2 915590, 9474608, 85614706, 4766496 ####[facility] [address] [place] [address] Albumin/Globulin (S) [Mass conc ratio] 1.2 Normal 1.1-2.2 [facility] Comment on above: Performed By: #### 2 227129, 9151515, 05136522, 1954659 ####[facility] [address] [place] [address] ALP [Catalytic activity/Vol] 38 Int._Unit/L Normal 21-98 [facility] Comment on above: Performed By: #### 2 445874, 9275969, 56669421, 9337243 ####[facility] [address] [place] [address] ALT No additional P-5'-P [Catalytic activity/Vol] 11 Int._Unit/L Normal 6-46 [facility] Comment on above: Performed By: #### 2 441204, 0729903, 47109022, 6971622 ####[facility] [address] [place] [address] Anion gap [Moles/Vol] 14 mmol/L Normal 6-16 [facility] Comment on above: Performed By: #### 2 699034, 3998955, 53459046, 9052676 ####[facility] [address] [place] [address] AST [Catalytic activity/Vol] 15 Int._Unit/L Normal 5-43 [facility] Comment on above: Performed By: #### 2 657383, 2224970, 00811678, 8421664 ####[facility] [address] [place] [address] Bilirubin [Mass/Vol] 1.0 mg/dL Normal 0.0-1.1 [facility] Comment on above: Performed By: #### 2 430422, 9141476, 28361128, 4329784 ####[facility] [address] [place] [address] Calcium [Mass/Vol] 9.2 mg/dL Normal 8.9-11.1 [facility] Comment on above: Performed By: #### 2 663402, 8577590, 28278817, 3039276 ####[facility] [address] [place] [address] Chloride [Moles/Vol] 107 mmol/L Normal 101-111 [facility] Comment on above: Performed By: #### 2 085832, 4904694, 46687651, 6286510 ####[facility] [address] [place] [address] CO2 [Moles/Vol] 28 mmol/L Normal 21-31 [facility] Comment on above: Performed By: #### 2 099782, 5802367, 86544966, 9895725 ####[facility] [address] [place] [address] Creatinine [Mass/Vol] 0.9 mg/dL Normal 0.5-1.3 [facility] Comment on above: Performed By: #### 2 331968, 5760042, 28348755, 5014986 ####[facility] [address] [place] [address] Globulin (S) [Mass/Vol] 3.2 g/dL Normal 1.4-4.0 [facility] Comment on above: Performed By: #### 2 440999, 6953506, 00419500, 2375679 ####[facility] [address] [place] [address] Glucose [Mass/Vol] 95 mg/dL Normal 55-199 [facility] Comment on above: Result Comment: If t his glucose result represents a fasting glucose, interpretation should refer to the following reference range: 55-99 mg/dL Performed By: #### 2 489303, 1612615, 71707399, 2863521 ####[facility] [address] [place] [address] Potassium [Moles/Vol] 4.2 mmol/L Normal 3.5-5.3 [facility] Comment on above: Performed By: #### 2 837760, 4934855, 19766532, 0959996 ####[facility] [address] [place] [address] Protein [Mass/Vol] 6.9 g/dL Normal 6.0-7.8 [facility] Comment on above: Performed By: #### 2 593619, 4167389, 54991703, 4982910 ####[facility] [address] [place] [address] Sodium [Moles/Vol] 145 mmol/L Normal 135-145 [facility] Comment on above: Performed By: #### 2 407734, 9290365, 61745361, 0259944 ####[facility] [address] [place] [address] Urea nitrogen [Mass/Vol] 18 mg/dL Normal 5-21 [facility] Comment on above: Performed By: #### 2 319150, 4622660, 75973642, 1246773 ####[facility] [address] [place] [address] Urea nitrogen/Creatinine [Mass ratio] 20 No Units Normal 10-20 [facility] Comment on above: Performed By: #### 2 867395, 9847252, 31262814, 1086808 ####[facility] [address] [place] [address] Consent for Treatmenton 0 Consent for Treatment [id number]#1 .00CD:127 Normal [facility] Lipid Panelon 11-26-2022 Cholesterol [Mass/Vol] 112 mg/dL Low 120-200 [facility] Comment on above: Performed By: #### 2 017882, 5567932, 39021025, 5608744 ####[facility] [address] [place] [address] Cholesterol in HDL [Mass/Vol] 49 mg/dL Invalid Interpretation Code [facility] Comment on above: Result Comment: HDL > or equal to 60 mg/dL: Low cardiovascular riskHDL < 40 mg/dL : High cardiovascular risk Performed By: #### 2 873228, 3107323, 06454945, 4752037 ####[facility] [address] [place] [address] Cholesterol in LDL [Mass/Vol] 42 mg/dL Normal <=129 [facility] Comment on above: Performed By: #### 2 045371, 0002404, 21111697, 1550627 ####[facility] [address] [place] [address] Cholesterol in VLDL [Mass/Vol] 14 mg/dL Normal 7-40 [facility] Comment on above: Performed By: #### 2 974568, 3483557, 67097523, 2858636 ####[facility] [address] [place] [address] Triglyceride [Mass/Vol] 69 mg/dL Normal <=149 [facility] Comment on above: Performed By: #### 2 867731, 1437715, 87377387, 9470704 ####[facility] [address] [place] [address] Physician Orderon 11-26-2022 Physician Order [id number]# 1.00CD:127 Normal [facility] TSHon 11-26-2022 TSH Qn 2.07 m[IU]/L Normal 0.34-5.60 [facility] Comment on above: Performed By: #### 2 274932, 3379317, 08088145, 5873728 ####[facility] [address] [place] [address] eGFRon 11-26-2022 GFR/1.73 sq M.predicted among non-blacks MDRD (S/P/Bld) [Vol rate/Area] 87 mL/min/1.73 m2 Normal >=59 [facility] Comment on above: Order Comment: Order added by Discern Expert. Result Comment: Corporate Recruiter earnest kidney disease could be indicated at eGFR's of less than 60 mL/min/1.73m2. Kidney failure is indicated at less than 15 mL/min/1.73m2. Performed By: #### 2 018653, 1489761, 16589126, 5991630 ####[facility] [address] [place] [address] Discharge Instructionson Discharge Instructions [id number]#1 .00CD:127 Normal [facility] Transfer Documentson 023 Transfer Documents [id number]#1 .00CD:127 Normal [facility] Capillary Glucose POCon Glucose [Mass/Vol] 166 mg/dL High 55-99 [facility] Comment on above: Result Comment: Gareth guerrero RN/ Performed By: #### 2 00264975 ####[facility] [address] [place] [address] Glucose [Mass/Vol] 119 mg/dL High 55-99 [facility] Comment on above: Result Comment: Repe at Test Performed By: #### 2 51330184 ####[facility] [address] [place] [address] Discharge Note-Nursingon Discharge Note-Nursing Normal [facility] OsdO1azr 09-28-2022 HbA1c (Bld) [Mass fraction] 6.4 % High <=5.9 [facility] Comment on above: Order Comment: IF UN ABLE TO ADD TO ED LABS Performed By: #### 2 943931, [id number] ####[facility] [address] [place] [address] Inpatient Clinical Summaryon 09-28-2022 Inpatient Clinical Summary Normal [facility] Inpatient Patient Summaryon 09-28-2022 Inpatient Patient Summary Normal [facility] Inpatient Patient Summary Normal [facility] Interdisciplinary Note - Santosh e Manageron 09-28-2022 Interdisciplinary Note - Structural Shop Helper Normal [facility] Comment on above: Result Comment: Elec tronically Signed By: Jose HAYDEN, Norma\.br\Date and Time Signed: 09/28/22 15:54 EDT Monitor Recordon 09-28-2022 Monitor Record [id number]# 1.00CD:127 Normal [facility] Capillary Glucose POCon Glucose [Mass/Vol] 192 mg/dL High 55-99 [facility] Comment on above: Result Comment: Gareth GARDINER Performed By: #### 2 75900838 ####[facility] [address] [place] [address] Glucose [Mass/Vol] 130 mg/dL High 55-99 [facility] Comment on above: Result Comment: No C overage Given Performed By: #### 2 65438202 ####[facility] [address] [place] [address] Glucose [Mass/Vol] 202 mg/dL High 55-99 [facility] Comment on above: Result Comment: Gareth GARDINER Performed By: #### 2 93749076 ####[facility] [address] [place] [address] Glucose [Mass/Vol] 89 mg/dL Normal 55-99 [facility] Comment on above: Result Comment: Gareth GARDINER Performed By: #### 2 87191317 ####[facility] [address] [place] [address] Insurance Correspondence Off iceon 09-27-2022 Insurance Correspondence Office [id number]# 1.00CD:127 Normal [facility] Interdisciplinary Note - Santosh e Manageron 09-27-2022 Interdisciplinary Note - Structural Shop Helper [facility] Comment on above: [...] No needs anticipated upon d/c home. AM-PAC [facility] Lyteson 09-27-2022 Anion gap [Moles/Vol] 9 mmol/L Normal 6-16 [facility] Comment on above: Performed By: #### 2 127874, 227617587 ####[facility] [address] [place] [address] Chloride [Moles/Vol] 105 mmol/L Normal 101-111 [facility] Comment on above: Performed By: #### 2 645430, 540779340 ####[facility] [address] [place] [address] CO2 [Moles/Vol] 26 mmol/L Normal 21-31 [facility] Comment on above: Performed By: #### 2 337289, 912217276 ####[facility] [address] [place] [address] Potassium [Moles/Vol] 4.2 mmol/L Normal 3.5-5.3 [facility] Comment on above: Performed By: #### 2 912603, 334443572 ####[facility] [address] [place] [address] Sodium [Moles/Vol] 136 mmol/L Normal 135-145 [facility] Comment on above: Performed By: #### 2 375527, 186568163 ####[facility] [address] [place] [address] Monitor Recordon 09-27-2022 Monitor Record [id number]# 1.00CD:127 Normal [facility] Monitor Record [id number]# 1.00CD:127 Normal [facility] Progress Note-Nurseon 2022 Progress Note-Nurse Normal [facility] Progress Note-Physicianon Progress Note-Physician Normal [facility] Comment on above: Result Comment: Elec tronically Signed By: Adeline COLEMAN\.br\Date and Time Signed: 09/27/22 15:34 EDT\.br\Electronically Co-Signed By: Adeline COLEMAN\.br\Date and Time Co-Signed: 09/27/22 15:37 EDT\.br\Electronically Co-Signed By: Ganesh Minaya MD\.br\Date and Time Co-Signed: 09/27/22 18:58 EDT Auto Diffon 09-26-2022 Basophils/100 WBC (Bld) 0.5 % Normal 0.0-2.0 [facility] Comment on above: Order Comment: Order Added by Discern Expert. Performed By: #### 1 8267046, 1552611, 5948585, 4441714 ####[facility] [address] [place] [address] Basophils/Leukocytes Auto (Bld) [Pure # fraction] 0.0 E9/L Normal 0.0-0.2 [facility] Comment on above: Order Comment: Order Added by Discern Expert. Performed By: #### 1 9502075, 1217435, 1977168, 4891406 ####[facility] [address] [place] [address] Eosinophils/100 WBC (Bld) 3.3 % Normal 0.0-8.0 [facility] Comment on above: Order Comment: Order Added by Discern Expert. Performed By: #### 1 3717176, 8654147, 2843607, 5386557 ####[facility] [address] [place] [address] Eosinophils/Leukocytes Auto (Bld) [Pure # fraction] 0.3 E9/L Normal 0.0-0.5 [facility] Comment on above: Order Comment: Order Added by Discern Expert. Performed By: #### 1 4514672, 7900724, 5562935, 3241606 ####[address] [place] [address] Lymphocytes/100 WBC (Bld) 9.5 % Low 14.0-50.0 [facility] Comment on above: Order Comment: Order Added by Discern Expert. Performed By: #### 1 3727192, 7910830, 1767168, 4943131 ####[address] [place] [address] Lymphocytes/Leukocytes Auto (Bld) [Pure # fraction] 0.8 E9/L Low 1.0-4.0 [facility] Comment on above: Order Comment: Order Added by Bethany Expert. Performed By: #### 1 7693360, 6975257, 8723619, 3601217 ####[address] [address] Monocytes/100 WBC (Bld) 7.2 % Normal 4.0-14.0 [facility] Comment on above: Order Comment: Order Added by Bethany Expert. Performed By: #### 1 5214698, 9893011, 8125153, 6958285 ####[address] [address] Monocytes/Leukocytes Auto (Bld) [Pure # fraction] 0.6 E9/L Normal 0.2-1.0 [facility] Comment on above: Order Comment: Order Added by Discern Expert. Performed By: #### 1 9832553, 4845775, 3000229, 9114416 ####[address] [address] Neutrophils/100 WBC (Bld) 79.5 % High 36.0-75.0 [facility] Comment on above: Order Comment: Order Added by Bethany Expert. Performed By: #### 1 9146850, 8983301, 3309198, 4338068 ####[address] [place] [address] Neutrophils/Leukocytes Auto (Bld) [Pure # fraction] 6.7 E9/L Normal 2.0-7.5 [facility] [facility] Comment on above: Order Comment: Order Added by Discern Expert. Performed By: #### 1 [id number], [id number], [id number], [id number] ####[facility] [address] [place] [address] BMPon 09-26-2022 Creatinine [Mass/Vol] 1.0 mg/dL Normal 0.5-1.3 [facility] Comment on above: Performed By: #### 1 [id number], 4859494, 1416135, 4395718 ####[facility] [address] [place] [address] Urea nitrogen [Mass/Vol] 25 mg/dL High 5-21 [facility] Comment on above: Performed By: #### 1 [id number], 8484938, 3262859, 1764399 ####[facility] [address] [place] [address] Urea nitrogen/Creatinine [Mass ratio] 25 No Units High 10-20 [facility] Comment on above: Performed By: #### 1 [id number], 0370567, 7507870, 2738366 ####[facility] [address] [place] [address] Anion gap [Moles/Vol] 10 mmol/L Normal 6-16 [facility] Comment on above: Performed By: #### 1 9347745, 1724365, 1546197, 6462452 ####[facility] [address] [place] [address] Calcium [Mass/Vol] 8.9 mg/dL Normal 8.9-11.1 [facility] Comment on above: Performed By: #### 1 7553561, 8189045, 1066070, 5007719 ####[facility] [address] [place] [address] Chloride [Moles/Vol] 101 mmol/L Normal 101-111 [facility] Comment on above: Performed By: #### 1 0741085, 4114050, 9852194, 0791512 ####[facility] [address] [place] [address] CO2 [Moles/Vol] 26 mmol/L Normal 21-31 [facility] Comment on above: Performed By: #### 1 7752245, 2309784, 2820348, 3252337 ####[facility] [address] [place] [address] Glucose [Mass/Vol] 112 mg/dL Normal 55-199 [facility] Comment on above: Result Comment: If t his glucose result represents a fasting glucose, interpretation should refer to the following reference range: 55-99 mg/dL Performed By: #### 1 [id number], 6854170, 2270013, 5822438 ####[facility] [address] [place] [address] Potassium [Moles/Vol] 4.1 mmol/L Normal 3.5-5.3 [facility] Comment on above: Performed By: #### 1 0608703, 2090558, 7638348, 6539533 ####[facility] [address] [place] [address] Sodium [Moles/Vol] 133 mmol/L Low 135-145 [facility] Comment on above: Performed By: #### 1 2454487, 8840742, 6453349, 9511809 ####[address] [place] [address] CBC w/ Auto Diffon 3 Erythrocyte distribution width (RBC) [Ratio] 14.6 % High 10.9-14.2 [facility] Comment on above: Performed By: #### 1 [id number], 1674081, 4022551, 7108516 ####[address] [place] [address] Hematocrit (Bld) [Volume fraction] 37.6 % Low 37.7-49.0 [facility] Comment on above: Performed By: #### 1 5499550, 4547201, 2894466, 2952596 ####[facility] [address] [place] [address] Hemoglobin (Bld) [Mass/Vol] 12.5 g/dL Low 13.5-17.5 [facility] Comment on above: Performed By: #### 1 4628980, 8029001, 2908571, 8758858 ####[facility] [address] [place] [address] MCH (RBC) [Entitic mass] 28.5 pg Normal 27.0-34.0 [facility] Comment on above: Performed By: #### 1 6757136, 4705806, 3170283, 6276467 ####[address] [address] MCHC (RBC) [Mass/Vol] 33.2 g/dL Normal 31.4-36.0 [facility] Comment on above: Performed By: #### 1 7978664, 4273428, 6869474, 2644367 ####[address] [address] MCV (RBC) [Entitic vol] 85.8 fL Normal 80.0-100.0 [facility] Comment on above: Performed By: #### 1 3931195, 1215479, 4565670, 1259728 ####[address] [address] Platelet mean volume (Bld) [Entitic vol] 10.3 fL Normal 6.4-10.8 [facility] Comment on above: Performed By: #### 1 5378074, 0566755, 7210535, 9515365 ####[address] [place] [address] Platelets (Bld) [#/Vol] 164.0 E9/L Normal 150.0-500.0 [facility] Comment on above: Performed By: #### 1 7283042, 6641306, 6962252, 6065982 ####[address] [address] RBC (Bld) [#/Vol] 4.4 E12/L Normal 4.3-5.9 [facility] Comment on above: Performed By: #### 1 5252023, 3137723, 9396879, 5141579 ####[facility] [address] [place] [address] WBC corrected for nucl RBC Auto (Bld) [#/Vol] 8.4 E9/L Normal 4.0-11.0 [facility] Comment on above: Performed By: #### 1 8956248, 6784819, 1355021, 1460144 ####[facility] [address] [place] [address] Capillary Glucose POCon Glucose [Mass/Vol] 161 mg/dL High 55-99 [facility] Comment on above: Result Comment: Gareth guerrero RN/MD Performed By: #### 2 [id number] ####[facility] [address] [place] [address] Consent for Treatmenton Consent for Treatment [id number] Normal [facility] ED Clinical Summaryon 2022 ED Clinical Summary Normal [facility] ED Note-Physicianon 09-27-19 ED Note-Physician Normal [facility] Comment on above: Result Comment: Elec tronically Signed By: Shane Pan DO\.candice\Date and Time Signed: 09/26/22 16:06 EDT ED Patient Education Noteon 09-26-2022 ED Patient Education Note Normal [facility] ED Patient Summaryon 023 ED Patient Summary Normal [facility] EMS Documentationon 09-27-19 EMS Documentation Normal [facility] EMS Documentation Normal [facility] Pre-Arrival Noteon Pre-Arrival Note Normal [facility] Progress Noteson 09-26-2022 [place] Specialist Authentication Interface Message Text EMERGENCY TRIAGE, TREAT AND TRANSPORT (ET3) DOCUMENTATION OF TELEHEALTH VISIT Date / Time: 09/26/2022929 Name: Clyde Humphrey : 1945 SSN: [id number] EMS Agency: [facility] [x] Verbal consent obtained [...] Completed by: Coby Lugo MD Normal [employer] UA With Cult Reflexon 2022 Bilirubin Ql (U) Negative Normal Negative [facility] Comment on above: Order Comment: can s traight cath if needed. Performed By: #### 1 [id number] ####[facility] [address] [place] [address] Clarity (U) CLEAR Normal Clear [facility] Comment on above: Order Comment: can s traight cath if needed. Performed By: #### 1 4802317 ####[facility] [address] [place] [address] Color (U) YELLOW Normal Yellow [facility] Comment on above: Order Comment: can s traight cath if needed. Performed By: #### 1 8978785 ####[facility] [address] [place] [address] Epithelial cells.squamous LM.HPF (Urine sed) [#/Area] 0-2 Normal 0-[address] [facility] Comment on above: Order Comment: can s traight cath if needed. Performed By: #### 1 [id number] ####[facility] [address] [place] [address] Glucose Test strip (U) [Mass/Vol] Negative Normal Negative [facility] Comment on above: Order Comment: can s traight cath if needed. Performed By: #### 1 3242182 ####[facility] [address] [place] [address] Hemoglobin Ql (U) Negative Normal Negative [facility] Comment on above: Order Comment: can s traight cath if needed. Performed By: #### 1 1939701 ####[address] [address] Ketones (U) [Mass/Vol] Negative Normal Negative [facility] Comment on above: Order Comment: can s traight cath if needed. Performed By: #### 1 9573857 ####[address] [address] [place].plasma/[place].R BC (Bld) [Mass ratio] 0-3 Normal 0-3 [facility] Comment on above: Order Comment: can s traight cath if needed. Performed By: #### 1 1052589 ####[facility] [address] [place] [address] Nitrite Ql (U) Negative Normal Negative [facility] Comment on above: Order Comment: can s traight cath if needed. Performed By: #### 1 5554243 ####[facility] [address] [place] [address] pH (U) 5.5 [pH] Invalid Interpretation Code 5.0-9.0 [facility] Comment on above: Order Comment: can s traight cath if needed. Performed By: #### 1 3098143 ####[facility] [address] [place] [address] Protein (U) [Mass/Vol] Negative Normal Negative [facility] Comment on above: Order Comment: can s traight cath if needed. Performed By: #### 1 3522253 ####[facility] [address] [place] [address] Specific gravity (U) [Rel density] 1.025 Invalid Interpretation Code 1.005-1.030 [facility] Comment on above: Order Comment: can s traight cath if needed. Performed By: #### 1 6448661 ####[facility] [address] [place] [address] Type of Urine collection method Clean Catch Normal [facility] Comment on above: Order Comment: can s traight cath if needed. Performed By: #### 1 3168674 ####[address] [address] Urobilinogen Qn (U) 1.0 {Lei'U}/dL Normal 0.0-1.0 [facility] Comment on above: Order Comment: can s traight cath if needed. Performed By: #### 1 3204263 ####[place] [address] WBC Auto Ql (U) Negative Normal Negative [facility] Comment on above: Order Comment: can s traight cath if needed. Performed By: #### 1 5582690 ####[place] [address] WBC LM.HPF (Urine sed) [#/Area] 0-5 Normal 0-5 [facility] Comment on above: Order Comment: can s traight cath if needed. Performed By: #### 1 2369748 ####[address] [address] XR Chest Single Viewon 09-26 XR Chest Single View Normal [facility] eGFRon 09-26-2022 GFR/1.73 sq M.predicted among non-blacks MDRD (S/P/Bld) [Vol rate/Area] 77 mL/min/1.73 m2 Normal >=59 [facility] Comment on above: Order Comment: Order added by Discern Expert. Result Comment: Corporate Recruiter earnest kidney disease could be indicated at eGFR's of less than 60 mL/min/1.73m2. Kidney failure is indicated at less than 15 mL/min/1.73m2. Performed By: #### 1 [id number], 1922624, 6133306, 0026348 ####[facility] [address] [place] [place] [address] Progress Noteson 09-07-2022 [place] Specialist Authentication Interface Message Text EMERGENCY TRIAGE, TREAT AND TRANSPORT (ET3) DOCUMENTATION OF TELEHEALTH VISIT Date / Time: 09/06/20222146 Name: Clyde Humphrey : 1945 SSN: [id number] EMS Agency: [facility] [x] Verbal consent obtained [...] Completed by: Marcelino Echavarria MD Normal [employer] Q - CULTURE,URINE,ROUTINEon 06-23-2021 CULTURE, URINE, ROUTINE SEE NOTE Normal N [facility] [employer] Comment on above: Order Comment: [facility] performed at: [employer], [employer] [facility], [address], [address] [place] [address], [id number], [employer] Filling Machine Operator: Archie Sinha MD [facility] Collection Date/Time: [id number] [facility] Results Received Date/Time: [id number] [facility] Reported Date/Time: Result Comment: CULT URE, URINE, ROUTINE Micro Number: [id number] Test Status: Final Specimen Source: Urine Specimen Quality: Adequate Result: Mixed genital alvin isolated. These superficial bacteria are not indicative of a urinary tract infection. No further organism identification is warranted on this specimen. If clinically indicated, recollect clean-catch, mid-stream urine and transfer immediately to Urine Culture Transport Tube. Performed By: #### 6 304R #### [facility] [address] [place] [address] Q - CULTURE,URINE,ROUTINEon 05-05-2021 CULTURE, URINE, ROUTINE SEE NOTE Normal N [facility] [employer] [employer] Comment on above: Order Comment: [facility] performed at: [employer] [facility], [address], [address] [place] [address], [id number], [employer] Operator: Archie Sinha MD [facility] Date/Time: [id number] [facility] Results Received Date/Time: [id number] [facility] Reported Date/Time: [id number] Result Comment: CULT URE, URINE, ROUTINE Micro Number: [id number] Test Status: Final Specimen Source: Urine Specimen Quality: Adequate Result: Growth of mixed alvin was isolated, suggesting probable contamination. No further testing will be performed. If clinically indicated, recollection using a method to minimize contamination, with prompt transfer to Urine Culture Transport Tube, is recommended. Performed By: #### 6 304R #### [facility] [address] [place] [address] Vital Signs Date Time Vital Sign Value Performing Clinician Facility 01-24-2023 10:00-0400 Hourly Rounding Mbanefo OJUKWU [facility] 01-24-2023 10:00-0400 Promise to Return Mbanefo OJUKWU [facility] 01-24-2023 09:00-0400 Hourly Rounding Mbanefo OJUKWU [facility] 01-24-2023 09:00-0400 Promise to Return Mbanefo OJUKWU [facility] 01-24-2023 08:29-0400 Diastolic blood pressure 73 mm[Hg] Mbanefo OJUKWU [facility] 01-24-2023 08:29-0400 Systolic blood pressure 157 mm[Hg] Mbanefo OJUKWU [facility] 01-24-2023 08:27-0400 Blood Pressure Location Mbanefo OJUKWU [facility] 01-24-2023 08:27-0400 Body temperature 97.7 [degF] Mbanefo OJUKWU [facility] 01-24-2023 08:27-0400 Diastolic blood pressure 73 mm[Hg] Mbanefo OJUKWU [facility] 01-24-2023 08:27-0400 Heart rate 82 /min Mbanefo OJUKWU [facility] 01-24-2023 08:27-0400 Respiratory rate 16 /min Mbanefo OJUKWU [facility] 01-24-2023 08:27-0400 Systolic blood pressure 157 mm[Hg] Mbanefo OJUKWU [facility] 01-24-2023 08:00-0400 Hourly Rounding Mbanefo OJUKWU [facility] 01-24-2023 08:00-0400 Promise to Return Mbanefo OJUKWU [facility] 01-24-2023 00:05-0400 Blood Pressure Location Mbanefo OJUKWU [facility] 01-24-2023 00:05-0400 Body temperature 97.7 [degF] Mbanefo OJUKWU [facility] 01-24-2023 00:05-0400 Diastolic blood pressure 76 mm[Hg] Mbanefo OJUKWU [facility] 01-24-2023 00:05-0400 Heart rate 83 /min Mbanefo OJUKWU [facility] 01-24-2023 00:05-0400 Mean blood pressure 99 mm[Hg] Mbanefo OJUKWU [facility] 01-24-2023 00:05-0400 SaO2% (BldA) [Mass fraction] 97 % Mbanefo OJUKWU [facility] 01-24-2023 00:05-0400 Systolic blood pressure 144 mm[Hg] Mbanefo OJUKWU [facility] 01-23-2023 19:36-0400 Heart rate 81 /min Mbanefo OJUKWU [facility] 01-23-2023 19:36-0400 SaO2% (BldA) [Mass fraction] 96 % Mbanefo OJUKWU [facility] 01-23-2023 19:36-0400 Body temperature 97.34 [degF] Mbanefo OJUKWU [facility] 01-23-2023 19:34-0400 Mean blood pressure 83 mm[Hg] Mbanefo OJUKWU [facility] 01-23-2023 13:00-0400 Body temperature 98.06 [degF] Mbanefo OJUKWU [facility] 01-23-2023 06:55-0400 Blood Pressure Location Mbanefo OJUKWU [facility] 01-23-2023 06:55-0400 Mean blood pressure 89 mm[Hg] Mbanefo OJUKWU [facility] 01-23-2023 06:55-0400 Respiratory rate 16 /min Mbanefo OJUKWU [facility] 01-23-2023 06:55-0400 SaO2% (BldA) [Mass fraction] 93 % Mbanefo OJUKWU [facility] 01-22-2023 23:00-0400 Body temperature 97.88 [degF] Mbanefo OJUKWU [facility] 01-22-2023 23:00-0400 Mean blood pressure 82 mm[Hg] Mbanefo OJUKWU [facility] 01-22-2023 23:00-0400 Respiratory rate 18 /min Mbanefo OJUKWU [facility] 09-01-2023 18:37-0400 Body temperature 97.52 [degF] Mbanefo OJUKWU [facility] 01-22-2023 18:36-0400 Mean blood pressure 81 mm[Hg] Mbanefo OJUKWU [facility] 01-22-2023 16:09-0400 Mean blood pressure 81 mm[Hg] Mbanefo OJUKWU [facility] 01-22-2023 16:07-0400 Body temperature 97.52 [degF] Mbanefo OJUKWU [facility] 01-22-2023 04:50-0400 Heart rate 77 /min Mbanefo OJUKWU [facility] 01-21-2023 21:09-0400 Heart rate 85 /min Mbanefo OJUKWU [facility] 01-21-2023 15:11-0400 Heart rate 78 /min Mbanefo OJUKWU [facility] 12-20-2022 09:37-0400 Hourly Rounding Maycol GEELIN [facility] 12-20-2022 09:37-0400 Promise to Return Maycolyasmine ARRIOLASLIN [facility] 12-20-2022 09:06-0400 Heart rate 65 /min Maycol TSERING [facility] 12-20-2022 09:06-0400 Respiratory rate 20 /min Maycolyasmine ARRIOLASLIN [facility] 12-20-2022 09:06-0400 SaO2% (BldA) [Mass fraction] 92 % Maycol TSERING [facility] 12-20-2022 08:56-0400 Heart rate 61 /min Maycol TSERING [facility] 12-20-2022 08:56-0400 Respiratory rate 20 /min Maycol TSERING [facility] 12-20-2022 08:56-0400 SaO2% (BldA) [Mass fraction] 92 % Maycol TSERING [facility] 12-20-2022 08:51-0400 Hourly Rounding Maycol TSERING [facility] 12-20-2022 08:51-0400 Promise to Return Maycol TSERING [facility] 12-20-2022 08:50-0400 Hourly Rounding Maycol TSERING [facility] 12-20-2022 08:31-0400 Promise to Return Maycol TSERING [facility] 12-20-2022 07:29-0400 Heart rate 60 /min Maycol TSERING [facility] 12-20-2022 07:29-0400 SaO2% (BldA) [Mass fraction] 93 % Maycol TSERING [facility] 12-20-2022 07:28-0400 Body temperature 98.06 [degF] Maycol TSERING [facility] 12-20-2022 07:28-0400 Diastolic blood pressure 69 mm[Hg] Maycol TSERING [facility] 12-20-2022 07:28-0400 Mean blood pressure 94 mm[Hg] Maycol TSERING [facility] 12-20-2022 07:28-0400 Systolic blood pressure 143 mm[Hg] Maycol TSERING [facility] 12-20-2022 03:25-0400 Respiratory rate 16 /min Maycol TESRING [facility] 12-20-2022 00:15-0400 Body temperature 97.7 [degF] Maycol TSERING [facility] 12-20-2022 00:15-0400 Diastolic blood pressure 56 mm[Hg] Maycol TSERING [facility] 12-20-2022 00:15-0400 Systolic blood pressure 135 mm[Hg] Maycol TSERING [facility] 12-19-2022 19:28-0400 Body temperature 98.42 [degF] Maycol TSERING [facility] 12-19-2022 19:27-0400 Diastolic blood pressure 69 mm[Hg] Maycol TSERING [facility] 12-19-2022 19:27-0400 Mean blood pressure 90 mm[Hg] Maycol TSERING [facility] 12-19-2022 19:27-0400 Systolic blood pressure 134 mm[Hg] Maycol TSERING [facility] 12-19-2022 16:26-0400 gluc 111 mg/dL Maycol TSERING [facility] 12-19-2022 16:06-0400 Mean blood pressure 95 mm[Hg] Maycol TSERING [facility] 12-19-2022 16:00-0400 Body temperature 98.06 [degF] Maycol TSERING [facility] 12-19-2022 11:58-0400 gluc 201 mg/dL Maycol TSERING [facility] 12-19-2022 08:18-0400 gluc 93 mg/dL Maycolyasmine ARRIOLASLIN [facility] 12-19-2022 08:00-0400 Body temperature 98.6 [degF] Maycolyasmine ARRIOLASLIN [facility] 12-18-2022 05:46-0400 Blood Pressure Location Maycolyasmine ARRIOLASLIN [facility] 12-18-2022 05:46-0400 Heart rate 67 /min Maycolyasmine ARRIOLASLIN [facility] 12-18-2022 05:00-0400 Body temperature 98.42 [degF] Maycolyasmine ARRIOLASLIN [facility] 12-18-2022 05:00-0400 Mean blood pressure 78 mm[Hg] Maycol TSERING [facility] 12-18-2022 05:00-0400 Respiratory rate 20 /min Maycol TSERING [facility] 12-18-2022 04:00-0400 Mean blood pressure 77 mm[Hg] Maycol TSERING [facility] 12-18-2022 04:00-0400 Respiratory rate 21 /min Maycol TSERING [facility] 12-18-2022 03:00-0400 Mean blood pressure 75 mm[Hg] Maycol TSERING [facility] 12-18-2022 03:00-0400 Respiratory rate 22 /min Maycol TSERING [facility] 12-18-2022 00:09-0400 Heart rate 85 /min Maycol TSERING [facility] 12-17-2022 23:54-0400 Heart rate 86 /min Maycol TSERING [facility] 12-02-2022 14:00-0400 SaO2% (BldA) [Mass fraction] 93 % Maycol TSERING [facility] 12-02-2022 13:00-0400 Hourly Rounding Maycol TSERING [facility] 12-02-2022 13:00-0400 Promise to Return Maycol TSERING [facility] 12-02-2022 12:58-0400 Heart rate 85 /min Maycol TSERING [facility] 12-02-2022 12:58-0400 SaO2% (BldA) [Mass fraction] 88 % Maycol TSERING [facility] 12-02-2022 12:58-0400 Body temperature 97.7 [degF] Maycol TSERING [facility] 12-02-2022 12:58-0400 Diastolic blood pressure 75 mm[Hg] Maycol TSERING [facility] 12-02-2022 12:58-0400 Mean blood pressure 102 mm[Hg] Maycol TSERING [facility] 12-02-2022 12:58-0400 Systolic blood pressure 157 mm[Hg] Maycol TSERING [facility] 12-02-2022 12:10-0400 Hourly Rounding Mayocl TSERING [facility] 12-02-2022 12:10-0400 Promise to Return Maycol TSERING [facility] 12-02-2022 11:30-0400 Hourly Rounding Maycolyasmine ARRIOLASLIN [facility] 12-02-2022 11:30-0400 Promise to Return Maycol TSERING [facility] 12-02-2022 08:00-0400 Blood Pressure Location Maycolyasmine ARRIOLASLIN [facility] 12-02-2022 08:00-0400 Diastolic blood pressure 79 mm[Hg] Maycol TSERING [facility] 12-02-2022 08:00-0400 gluc 127 mg/dL Maycol TSERING [facility] 12-02-2022 08:00-0400 Heart rate 76 /min Maycol TSERING [facility] 12-02-2022 08:00-0400 Respiratory rate 20 /min Maycol TSERING [facility] 12-02-2022 08:00-0400 Systolic blood pressure 141 mm[Hg] Maycol TSERING [facility] 12-02-2022 07:46-0400 Heart rate 66 /min Maycol TSERING [facility] 12-02-2022 07:46-0400 Respiratory rate 18 /min Maycol TSERING [facility] 12-02-2022 07:40-0400 Respiratory rate 18 /min Maycol TSERING [facility] 12-01-2022 23:32-0400 Body temperature 97.16 [degF] Maycol TSERING [facility] 12-01-2022 23:32-0400 Diastolic blood pressure 77 mm[Hg] Maycol TSERING [facility] 12-01-2022 23:32-0400 Mean blood pressure 101 mm[Hg] Maycol TSERING [facility] 12-01-2022 23:32-0400 Systolic blood pressure 130 mm[Hg] Maycol TSERING [facility] 12-01-2022 20:01-0400 Body temperature 97.16 [degF] Maycol TSERING [facility] 12-01-2022 20:01-0400 Mean blood pressure 101 mm[Hg] Maycol TSERING [facility] 12-01-2022 12:07-0400 Body temperature 97.52 [degF] Maycol TSERING [facility] 12-01-2022 07:30-0400 Body temperature 96.98 [degF] Maycol TSERING [facility] 12-01-2022 06:00-0400 gluc 110 mg/dL Maycol TSERING [facility] 11-30-2022 23:32-0400 FIO2 30 % Maycol TSERING [facility] 11-30-2022 20:04-0400 Mean blood pressure 98 mm[Hg] Maycol TSERING [facility] 11-30-2022 04:38-0400 Mean blood pressure 91 mm[Hg] Maycol TSERING [facility] [facility] 11-29-2022 20:16-0400 FIO2 30 % Maycol TSERING [facility] 11-29-2022 19:00-0400 Blood Pressure Location Maycol TSERING [facility] 11-29-2022 08:10-0400 FIO2 30 % Maycol CAGLE [facility] 11-29-2022 04:08-0400 gluc 107 mg/dL Maycol CAGLE [facility] 11-29-2022 04:08-0400 Mean blood pressure 80 mm[Hg] Maycol CAGLE [facility] 11-29-2022 00:16-0400 Heart rate 48 /min Maycol CAGLE [facility] 11-28-2022 22:55-0400 Respiratory rate 19 /min Maycol CAGLE [facility] 11-28-2022 21:45-0400 Respiratory rate 18 /min Maycol CAGLE [facility] 11-28-2022 20:45-0400 Respiratory rate 22 /min Maycolyasmine CAGLE [facility] 11-28-2022 18:55-0400 SaO2% (BldA) [Mass fraction] 95.4 % Maycol CAGLE [facility] Resp Auto SS 11-28-2022 17:13-0400 Heart rate 59 /min Maycol CAGLE [facility] 09-07-2022 01:10-0400 Diastolic blood pressure 53 mm[Hg] [facility] 09-07-2022 01:10-0400 Heart rate 70 /min [facility] 09-07-2022 01:10-0400 SaO2% (BldA) [Mass fraction] 96 % [facility] 09-07-2022 01:10-0400 Systolic blood pressure 135 mm[Hg] [facility] Encounters Encounter Date Encounter Type Care Provider Facility Start: 02-01-2023 ambulatory Robin Garcia acility:[facility] Start: 01-21-2023 End: 01-24-2023 Evaluation and management of inpatient New Johnson Facility:[facility] Start: 01-21-2023 End: 01-24-2023 Evaluation and management of inpatient Steve HUTN [facility] Start: 01-15-2023 End: 01-16-2023 ambulatory Donta GRAND CHAIN Facility:CD:[id number] Start: 01-15-2023 End: 01-15-2023 Off-Site [facility] Start: 12-22-2022 End: 12-23-2022 ambulatory Donta GRAND CHAIN Facility:CD:[id number] Start: 12-22-2022 End: 12-22-2022 Off-Site [facility] Start: 12-18-2022 End: 12-20-2022 Evaluation and management of inpatient Maycol CAGLE Facility:[facility] Start: 12-17-2022 End: 12-20-2022 Evaluation and management of inpatient Maycol CAGLE [facility] Start: 12-14-2022 End: 01-16-2023 ambulatory Donta GRAND CHAIN Facility:[id number] Start: 12-14-2022 End: 01-16-2023 In-Between Visit [facility] Start: 12-11-2022 ambulatory Donta SHAISTA Facilit y:[facility] Start: 12-03-2022 End: 12-03-2022 Off-Site [facility] Start: 12-03-2022 End: 12-04-2022 ambulatory Donta GRAND CHAIN Facility:[id number] Start: 12-02-2022 End: 01-16-2023 ambulatory Donta NOONAN Facility:[facility] Start: 11-30-2022 ambulatory Facility:1 [id number] Start: 11-30-2022 ambulatory Facility:1 [id number] Start: 11-29-2022 ambulatory Facility:1 [id number] Start: 11-29-2022 End: 12-02-2022 Evaluation and management of inpatient Maycol CAGLE Facility:[facility] Start: 11-28-2022 End: 12-02-2022 Evaluation and management of inpatient Maycol CAGLE [facility] Start: 11-26-2022 End: 11-27-2022 ambulatory Bienvenido Barroso Facility:[facility] Start: 11-26-2022 End: 11-26-2022 Patient encounter procedure Bienvenido Barroso [facility] Start: 09-26-2022 End: 09-28-2022 ambulatory UNKNOWN PROVIDER Facility:[facility] Start: 09-07-2022 End: 09-08-2022 ambulatory UNKNOWN PROVIDER [facility] Start: 2022 End: 2022 ambulatory [facility] Emergenc y Triage, Treat and Transport Start: 2022 End: 2022 Emergency department patient visit [facility] Emergency Triage, Treat and Transport [...] (2 - PPSV23 if available, else PCV20) [facility] Start: 1994 Shingles (RZV) Vacci ne (1 of 2) Shingles (RZV) Vaccine (1 of 2) [facility] Start: 1962 Hepatitis C screening Hepatitis C An tibody [facility] Start: 1962 Tetanus + diphtheria + acellular pertussis vaccine (product) Tdap Booster [facility] Immunizations Immunization Date Immunization Notes Care Provider Ryder pitt 03-12-2022 SARS-CoV-2 (COVID-19 ) mRNAMUL.ORD![id number] Donta SHAISTA [facility] 03-17-2021 Influenza, injectabl e, high-dose seasonal, quadrivalent, 0.7 mL, preservative free (MSS=747) Et3 [facility] 07-15-2020 Pfizer (12+ yrs) SARS-COV-2 (COVID-19) vaccine, mRNA, spike protein, LNP, pres. free, 30 mcg/0.3mL dose (PQJ=107) [facility] 06-26-2020 Pfizer (12+ yrs) SARS-COV-2 (COVID-19) vaccine, mRNA, spike protein, LNP, pres. free, 30 mcg/0.3mL dose (XRO=266) Et3 [facility] 06-23-2019 influenza, high dose seasonal, preservative-free Et3 [facility] 05-14-2017 influenza, high dose seasonal, preservative-free Et3 [facility] 05-14-2017 pneumococcal conjuga te vaccine, 13 valent Et3 [facility] 04-04-2014 influenza, injectabl e, madin cee canine kidney, preservative free Et3 [facility] NEGATED: Highlighted row has not occurred!06-15-2014 pneumococcal polysaccharide vaccine, 23 valent Bienvenido Barroso [facility] Comment on above: Result Note: pt had vaccine last year per Payers Date Payer Category Payer Self-pay 2022 Unknown [id number] 2022 Medicare [employer] [id number] 2022-Present [address] [place] [address] Medicare [id number] 2022 Unknown [id number] 1945 Unknown [id number] [id number]2 1944 Unknown [id number] 2.16.840.1.212034.3.579.2.732 1944 Unknown [id number] 2.16.840.1.740874.3.579.2.356 1944 Unknown [id number] 2.16.840.1.688546.3.579.2.356 1944 Unknown [id number] 2.16.840.1.405673.3.579.2.356 1944 Unknown [id number] 2.16.840.1.546277.3.579.2.72 1944 Unknown [id number] 2.16.840.1.775950.3.579.2.72 1944 Unknown [id number] 2.16.840.1.054174.3.579.2.72 1944 Unknown [id number] 2.16.840.1.481983.3.579.2.72 1944 Unknown [id number] 2.16.840.1.371362.3.579.2.72 1944 Unknown [id number] 2.16.840.1.675775.3.579.2.72 1944 Unknown [id number] 2.16.840.1.231636.3.579.2.727 1944 Unknown [id number] 2.16.840.1.810068.3.579.2727 1944 Unknown [id number] 2.16.840.1.216855.3.579.2.727 1944 Unknown [id number] 2.16.840.1.451369.3.579.2.727 1944 Unknown [id number] 2.840.1.006781.3.579.2.727 1944 Unknown [id number] 2.16840.1.828800.3.579.2.72 Social History Date Type Detail Facility Tobacco smoking status MIIS Tobacco smoking consumption unknown [facility] Start: 1945 Sex Assigned At Not [facility] Start: 04-24-2021 Tobacco smoking status Ex-smoker (finding) [facility] Sex Assigned At Male [facility] Functional Status Date Assessment Result Facility 01-21-2023 Functional Status No [facility] 01-21-2023 Functional Status [facility] 12-18-2022 Functional Status N/A [facility] 12-17-2022 Functional Status [facility] 11-29-2022 Functional Status N/A [facility] 11-28-2022 Functional Status [facility] Clinical Notes 09-07-2022 to 01-24-2023 Note Date & Type Note Facility 01-24-2023 Evaluation + Plan note Extrac gi from: Title:Discharge Note Author:New Johnson DO Date:01/24/23 Discharge To, Anticipated II - Senior Living Unit Discharged to - Home independently Transported [...] When Contact Information Dharmesh POTTS, Bienvenido Chavira, [address] [address]- Additional Instructions: Dementia, Obke-sr-Oxxf Extracted from: Title:APSO Note Author:New Johnson DO e:01/23/23 1. Generalized weakness (R53 .1: Weakness) IV fluids, trend BUN and creatinine PT/OT Currently awaiting pre-CERT for placement 2. Alzheimers disease (G30.9: Alzheimer's disease, unspecified) Continue Seroquel 3. 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 Alzheimers disease (G30.9: Alzheimer's disease, unspecified) Continue Seroquel 3. CAD in [place] artery (I25.10: Atherosclerotic heart disease of [place] coronary artery without angina pectoris) Continue aspirin [...] (G30.9: Alzheimer's disease, unspecified) 3. CAD in [place] artery (I25.10: Atherosclerotic heart disease of [place] coronary artery without angina pectoris) 4. COPD [...] Ordered: Initial Hospital Care/Day Moderate 55 Minutes [id number] 2. Alzheimers disease (G30.9: Alzheimer's disease, unspecified) Continue Seroquel 3. CAD in [place] artery (I25.10: Atherosclerotic heart disease of [place] coronary artery without angina pectoris) Continue aspirin [...] improving gait and building on physical strength. [facility]09-03-2023 [facility] CenterComment on above:Result Comment: Electronically Signed By: New Johnson DO.br\Date and Time Signed: 01/24/23 09:57 [id number] Hospital Discharge instructions Patient Education 01/24/2023 09:54:03 Dementia, Ojzx-uw-Vdie Dementia Dementia is a condition that affects [...] Follow these instructions at home: Medicines Take lfuy-zib-zczjtyj and prescription medicines only as told by [...] find more information Alzheimer's Association: www.alz.org National Groom on Aging: www.susie.nih.gov/alzheimers World Health Organization: www.who.int [...] the National Suicide Prevention Lifeline at or 048 in the [place] This is open 24 hours a day. Text the Crisis Text Line at 230853. Summary Dementia often affects memory and thinking. [...] provider. Document Revised: 12/03/2021 Document Reviewed: 09/23/2020 [employer] Patient Education 2022 [employer]. Follow Up Care 01/21/2023 15:06:04 With:Dharmesh POTTS, Bienvenido Chavira, SHEA Address: [place] [address]- When: Unknown [facility]08-31-[address] [facility] Medical CenterComment on above:Result Comment: Electronically Signed By: New Johnson DO.br\Date and Time Signed: 01/21/23 17:53 [id number] Evaluation + Plan note Extracted from: Title:Discharge Note Author:MICHAEL POTTSJamir Gerry e:12/20/22 stable Discharge To, Anticipated II - Senior Living Unit Discharged to - alf unit SNF Discharge Diet(s): Calorie Controlled- 1800 Calorie Diet (12/20/22 09:46:00) Prescriptions alprazolam 0.5 mg Tab, 0.5 mg= 1 tab(s), Oral, Daily, PRN aspirin 81 mg Oral EC Tab, 81 mg= 1 tab(s), Oral, Daily Augmentin 875 mg oral tablet, 1 tab(s), Oral, q12hr ergocalciferol 50,000 intl units Cap, 17430 International_Unit= 1 cap(s), Oral, q7day furosemide 40 [...] BID With When Contact Information Bienvenido Barroso [address] [place], [place] [address] Business (1) Additional Instructions: Call for followup [...] ultimately benefit being only slightly on the bone 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 Coronary artery disease (I25.10: Atherosclerotic heart disease of [place] coronary artery without angina pectoris) Patient had [...] 9. Pulmonary hypertension (I27.20: Pulmonary hypertension, unspecified) [place] secondary to above 10. Hypertension (I10: Essential (primary) hypertension) Await reconciliation of meds from the extended care facility. He did have 1 blood pressure of 106 systolically in the emergency department. With the fall and suspicion of intravascular depletion will transiently hold antihypertensives if it is identified he is actually on antihypertensives at the [facility] care facility. On a prior [...] recent hospitalization has been titrated at the [facility] care facility. He was recently placed on Xanax, discontinue that at this time. Awaiting verification of meds from the [facility] facility 15. Encounter for deep vein thrombosis [...] than 2 midnight stay Addendum by Ok ACGLE DO on December 18, 2022 06:27:20 EDT Note I did converse with patient's RN it was advised that the [facility] was planning on sending a copy of [...] Tests Pending * Legionella Antigen Urine 12/18/22 [facility]07-30-2023 NoteCRM entered the room to discuss dc planning. PCP, DME and insurance discussed. Patient is alert andinvolved in plan of care. Contact information given and whiteboard updated. Pt will [facility] today. CRM to follow.[facility] CenterComment on above:Result Comment: Electronically Signed By: Natalie Grant\.br\Date and Time Signed: 12/20/22 11:52 [id number] [facility] CenterComment on above: Result Comment: Electronically Signed By: Jamir MCKINNEY MD\.br\Date and Time Signed: 12/20/22 10:[id number] Hospital Discharge instructions Patient Education 12/20/2022 09:48:09 [...] a long-term care facility, such as a penitentiary. Having your kidneys filtered through hemodialysis in [...] hard liquor (44 mL). General instructions Take eoit-zgq-bsdiexq and prescription medicines as told by your [...] are not available, use an alcohol-based hand boiler cleaner. ?Make sure your health care providers [...] and water or with alcohol- based hand boiler cleaner before and after caring for sick [...] bacteria common in health care settings. Take ctba-pct-fcrkqep and prescription medicines as told by your [...] provider. Document Revised: 05/31/2022 Document Reviewed: 05/31/2022 [employer] Patient Education 2022 [employer] Follow Up Care 12/17/2022 23:50:19 With:Bienvenido Barroso Address: [address] [place] [address] [facility] (1) When: Unknown Comments:Call for followup appointment [facility]07-28-2023 [facility]:Result Comment: Electronically Signed By: Maycol CAGLE DO\.br\Date and Time Signed: 12/18/22 06:27 [id number] NoteFirelands Regional Medical CenterComment on above:Result Comment: Electronically Signed By: Lizeth Cedeno MD\.br\Date and Time Signed: 12/02/22 12:28 [id number] Evaluation + Plan noteExtracted from: Title:Discharge Note Author:Lizeth Cedeno MD ate:12/02/22 Stable Discharge To, Anticipated II - Senior Living Unit Discharged to - Home with family care Transported by, Anticipated - Family Discharge Diet(s): Other: Limit fluids to 1800 ml/day (12/02/22 12:23:00) Prescriptions aspirin 81 mg Oral EC Tab, 81 mg= 1 tab(s), Oral, Daily ergocalciferol 50,000 intl units Cap, 23782 International_Unit= 1 cap(s), Oral, q7day furosemide 40 [...] Bedtime With When Contact Information Joanie Jiménez [facility] [address] [place] [address]- Business (1) Additional Instructions: HFpEF Dave [place] [address] [place] [address]- Business (1) Additional Instructions: Cog impariment, Alzhiemer's Bienvenido Barroso In [address] [place] [address]- Business (1) Additional Instructions: Extracted from: Title:UPDATE [...] of CAD and previous coronary interventions in [place] with no indication of recurrent CAD, would not recommend investigation for ischemic heart disease at this time Extracted from: Title:APSO Note Author:Pao POTTS, [facility] Date: Acute respiratory failure wi th hypoxia [...] able, pulm avery. -check echo Ordered: [facility] Hospital Care/Day High 50 Minutes 75089 2. Acute on chronic diastolic heart failure (I50.33: Acute on chronic diastolic (congestive) heart failure) c/w spironolactone and lasix IV 40mg qd -strict I/Os and daily weight - last echo was done 2014 with EF of 50%. will recheck this visit Ordered: [facility] Hospital Care/Day High 50 Minutes 73249 3. COPD without exacerbation (J44.9: Chronic obstructive pulmonary disease, unspecified) Ordered: [facility] Hospital Care/Day High 50 Minutes 19166 4. Weakness (R53.1: Weakness) -pt/ot Ordered: [facility] Hospital Care/Day High 50 Minutes 96751 5. Sinus bradycardia (R00.1: Bradycardia, unspecified) baseline. last EKG similar. -pt had decreased HR overnight so BB was held. -continue to monitor on tele Ordered: [facility] Hospital Care/Day High 50 Minutes 40021 6. Coronary artery disease (I25.10: Atherosclerotic heart disease of [place] coronary artery without angina pectoris) -c/w ASA Ordered: [facility] Hospital Care/Day High 50 Minutes 89630 7. Obstructive sleep apnea (G47.33: Obstructive sleep apnea (adult) (pediatric)) -CPAP qHS Ordered: [facility] Hospital Care/Day High 50 Minutes 76239 8. Pulmonary hypertension (I27.20: Pulmonary hypertension, unspecified) c/w spironolactone 50mg -lasix 40 mg iv qd -strict I/Os daily weights -check echo Ordered: [facility] Care/Day High 50 Minutes 63961 9. Abdominal pain (R10.9: Unspecified abdominal pain) resolved no complaints this morning Ordered: [facility] Hospital Care/Day High 50 Minutes 03349 10. Hypertension (I10: Essential (primary) hypertension) c/w spironolactone Ordered: [facility] Hospital Care/Day High 50 Minutes 33467 11. Diabetes (E11.9: Type 2 diabetes mellitus without complications) BGT qACHS -c/w glimepiride Ordered: [facility] Care/Day High 50 Minutes 90754 12. Hyperlipidemia (E78.5: Hyperlipidemia, unspecified) -hold statin due to elevated CK Ordered: [facility] Hospital Care/Day High 50 Minutes 04021 13. Chronic anemia (D64.9: Anemia, unspecified) monitor Ordered: [facility] Care/Day High 50 Minutes 82074 14. BPH (benign prostatic hyperplasia) (N40.0: Benign prostatic hyperplasia without lower urinary tract symptoms) c/w tamsulosin Ordered: [facility] Hospital Care/Day High 50 Minutes 92386 15. Dementia (F03.90: Unspecified dementia, unspecified severity, without behavioral disturbance, psychotic disturbance, mood disturbance, and anxiety) -c/w seroquel 25mg qHS Ordered: [facility] Hospital Care/Day High 50 Minutes 23834 16. Encounter for deep vein thrombosis (DVT) prophylaxis (Z29.9: Encounter for prophylactic measures, unspecified) Ordered: [facility] Hospital Care/Day High 50 Minutes 27558 17. Elevated CK (R74.8: Abnormal levels of other serum enzymes) -CK 1000 this morning. will monitor and hold statin - will not give fluids due to current diuresis Ordered: [facility] Hospital Care/Day High 50 Minutes 37439 COPD with acute exacerbation (J44.1: Chronic obstructive pulmonary disease with (acute) exacerbation) Extracted from: Title:Admission H & P Author:Myacol CAGLE DO Date:11/28/22 1. Acute respiratory failure [...] artery disease (I25.10: Atherosclerotic heart disease of [place] coronary artery without angina pectoris) Continue aspirin, [...] NOONAN MD Location:Extended Care Appointment Type:[facility]07-10-2023 NoteOT [facility] six clicks score 15/24 = SNF. Patient requires assist w/ all transfers and self care at this time. Inpatient OT services to follow daily to progress w/ functional skills.[facility]07-[facility] NotePT Evaluation completed with an [facility] score of 16/24. Pt requires Min A for bed mobility and min/Mod A to stand. Pt was able to take two sidesteps. Will follow daily, but SNF [facility] HospitalComment on above:Result Comment: Electronically Signed By: Maycol CAGLE DO\.br\Date and Time Signed: 11/29/22 01:33 [id number] Hospital Discharge instructions Follow Up Care 11/28/2022 17:10:04 With:Joanie Jiménez Address: [facility] [address] [place] [address]- Business (1) When: Unknown Comments:HFpEF With:Dave Cruz Address: [address] [place] [address]- Business (1) When: Unknown Comments:Cog impariment, Alzhiemer's With:Bienvenido Barroso Address: [address] [place] [address]- Business (1) When: Unknown [facility]05-20-2023 [facility] HospitalComment on above:Result Comment: Electronically Signed By: Adeline COLEMAN\.br\Date and Time Signed: 10/10/22 17:53 EDT\.br\Electronically Co- Signed By: Ganesh Minaya MD\.br\Date and Time Co-Signed: 10/10/22 18:51 EDT 09-27-2022 [facility] HospitalComment on above:Result Comment: Electronically Signed By: Adeline COLEMAN\.br\Date and Time Signed: 09/26/22 21:20 EDT\.br\Electronically Co-Signed By: Ganesh Minaya MD\.br\Date and Time Co-Signed: 09/27/22 08:00 [id number] History of Present illness Narrative* Marcelino Echavarria MD - 09/07/2022 1:12 AM EDT Images from the original note were not included. EMERGENCY TRIAGE, TREAT AND TRANSPORT (ET3) DOCUMENTATION OF TELEHEALTH VISIT Date / Time: 09/06/20222146 Name: Clyde Humphrey : 1945 SSN: [id number] EMS Agency: [facility] [x] Verbal consent obtained [...] note No data available for this section [facility], initial encounter- Primary [facility] No data available for this section [facility] No data available for this section [facility] Summary Purpose Family History No Family [...] section and content) DATE CREATED AUTHOR 06/26/2021 [facility] dical Specialist DATE CREATED AUTHOR AUTHOR'S ORGANIZ ATION 09/30/2022 [facility] DATE CREATED AUTHOR AUTHOR'S ORGANIZ ATION 12/05/2022 [facility] DATE CREATED AUTHOR AUTHOR'S ORGANIZ ATION 03/26/2023 [facility] DATE CREATED AUTHOR AUTHOR'S ORGANIZ ATION 05/04/2023 [facility] Reason for Visit (unrecogniz ed section and content) Reason Comments Fall Patient Care team informatio n (unrecognized section and content) Personnel Name: Bienvenido Barroso MD Address: Address: [address] [place] [id number] Name: Andrew Rodriguez Personnel Name: Bienvenido Barroso MD Address: Address: [address] [place] [address] Name: Andrwe Rodriguez Personnel Name: Bienvenido Barroso MD Address: Address: [address] [place] [address] Name: Andrew Rodriguez Personnel Name: Beinvenido Barroso MD Address: Address: [address] [place] [address] Name: Andrew Rodriguez Personnel Name: Bienvenido Barroso MD Address: Address: [address] [place] [address] Name: Andrew Rodriguez Personnel Name: Bienvenido Barroso MD Address: Address: [address] [place] [address] Name: Andrew Rodriguez Personnel Name: Bienvenido Barroso MD Address: Address: [address] [place] [address] Name: Andrew Rodriguez Personnel Name: Bienvenido Barroso MD Address: Address: [address] [place] [address] Name: Luis Gil LPN Name: Andrew Rodriguez [...] BE BASED ON THE PRIMARY CLINICAL RECORDS. [employer] provides no warranty or guarantee of the accuracy or completeness of information in this document.
[2023-09-03 14:43] LABS: Estimated Average Glucose 171 mg/dL; Glycohemoglobin A1C 7.6 % (4.5-6.2)
== END 2023-09-03 03:20 | disposition home or self-care (01) ==
LOC: LAB 03:19
PROVIDERS: PCP Family Medicine; Visit Provider Nurse Practitioner
DX: E11.49 Type 2 diabetes mellitus with other diabetic neurological complication (principal)
CPT/HCPCS: 36415; 83036

== ENCOUNTER 2023-12-20 07:52 | Outpatient (REF) | payer OTHER, SELFPAY ==
--- OUTSIDE RECORDS SUMMARY | 2023-12-20 08:00 | XMS_ITS | CCD ---
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 Name Role Phone Unavailable Primary Care Provider Unavailabl e PROVIDER, UNKNOWN Attending Unavailable PROVIDER, UNKNOWN Admitting Unavailable PROVIDER, UNKNOWN Attending Unavailable PROVIDER, UNKNOWN Admitting Unavailable Bienvenido Barroso Primary Care Physician [phone] Andrew Rodriguez Unavailable Unavailable Luis Gil Unavailable [...] Refills(s) 0 Start Date: 06/16/14 Status: Ordered [id number] 200 actuat albuterol 0.09 mg/actuat metered dose inhaler (4 sources) beta2-Adrenergic Agonist Start: 04-27-2021 take 2 puff(s) by inhalation four times daily for wheezing Pro-Air HFA CFC free 90 mcg/inh MDI 2 puff(s), Inhalation, QID for wheezing, 8.5 gram, Refill(s) 0, [facility], 167.6, cm, 04/24/21 18:14:00 EST, Height/Length [...] Daily, # 30 tab(s), Refills(s) 0, Pharmacy: [facility], 167, cm, 11/28/22 17:20:00 EDT, Height/Length [...] Daily, # 90 tab(s), Refills(s) 4, Pharmacy: [facility], 160, cm, 12/18/22 0:04:00 EDT, Height/Length [...] Daily, # 90 tab(s), Refills(s) 4, Pharmacy: [facility], 160, cm, 12/18/22 0:04:00 EDT, Height/Length [...] Daily, # 90 tab(s), Refills(s) 1, Pharmacy: [facility], 160, cm, 12/18/22 0:04:00 EDT, Height/Length Dosing, 94, kg, 12/18/22 0:04:00 EDT, Weight Dosing Start Date: 01/15/23 Status: Ordered Start: 12-02-2022 take 1 tablet by ruperto th once daily furosemide 40 mg Tab 40 mg = 1 tab(s), Oral, Daily, # 30 tab(s), Refills(s) 0, Pharmacy: [facility], 167, cm, 11/28/22 17:20:00 EDT, Height/Length [...] day, # 30 tab(s), Refills(s) 0, Pharmacy: [facility], 167, cm, 09/26/22 10:09:00 EDT, Height/Length [...] qHS, # 210 tab(s), Refills(s) 1, Pharmacy: [facility], 160, cm, 12/18/22 0:04:00 EDT, Height/Length [...] Bedtime, # 30 tab(s), Refills(s) 0, Pharmacy: [facility], 167, cm, 11/28/22 17:20:00 EDT, Height/Length [...] Daily, # 90 tab(s), Refills(s) 1, Pharmacy: [facility], 160, cm, 12/18/22 0:04:00 EDT, Height/Length Dosing, 94, kg, 12/18/22 0:04:00 EDT, Weight Dosing Start Date: 01/15/23 Status: Ordered Start: 06-16-2014 take 1 tablet by ruperto once daily spironolactone 50 mg Tab 50 [...] week(s), # 8 cap(s), Refills(s) 0, Pharmacy: [facility], 167, cm, 11/28/22 17:20:00 EDT, Height/Length [...] Completed Start: 06-16-2014 take 1 capsule by [facility] twice daily tamsulosin 0.4 mg [...] Coronary atherosclerosis; Translations: [Atherosclerotic heart disease of [place] coronary artery without angina pectoris] Onset: 11-29-2022 [...] Value Interpretation Reference Range Facility Insurance Correspondenceon 05-25-2022 Insurance Correspondence [id number]# 1.00TIFF [facility] Coding Queryon 02-17-2023 Coding Query [facility] Discharge Instructionson Discharge Instructions [id number]# 1.00CD:127 Normal [facility] Transfer Documentson 023 Transfer Documents [id number]# 1.00CD:127 Normal [facility] Discharge Note-Nursingon Discharge Note-Nursing Normal [facility] Interdisciplinary Note - Santosh e Manageron 01-23-2023 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 Normal [facility] Comment on above: Result Comment: Elec tronically Signed By: Norma Garcia RN\.br\Date and Time Signed: 01/23/23 16:29 EDT Progress Note-Physicianon Progress Note-Physician Normal [facility] Comment on above: Result Comment: Elec tronically Signed By: New Johnson DO.br\Date and Time Signed: 01/23/23 09:50 EDT Auto Diffon 01-22-2023 Basophils/100 WBC (Bld) 0.7 % Normal 0.0-2.0 [facility] Comment on above: Order Comment: Order Added by Discern Expert. Performed By: #### 2 173591, 53993225, 6313043, 4582346 ####[address] [address] Basophils/Leukocytes Auto (Bld) [Pure # fraction] 0.1 E9/L Normal 0.0-0.2 [facility] Comment on above: Order Comment: Order Added by Discern Expert. Performed By: #### 2 181803, 74222776, 8264779, 6743182 ####[address] [address] Eosinophils/100 WBC (Bld) 9.3 % High 0.0-8.0 [facility] Comment on above: Order Comment: Order Added by Discern Expert. Performed By: #### 2 942264, 41621084, 6656394, 8300773 ####[address] [address] Eosinophils/Leukocytes Auto (Bld) [Pure # fraction] 0.8 E9/L High 0.0-0.5 [facility] Comment on above: Order Comment: Order Added by Discern Expert. Performed By: #### 2 531898, 61641201, 0075862, 1516315 ####[address] [address] Lymphocytes/100 WBC (Bld) 17.2 % Normal 14.0-50.0 [facility] Comment on above: Order Comment: Order Added by Discern Expert. Performed By: #### 2 616585, 57233011, 9247435, 6484036 ####[address] [address] Lymphocytes/Leukocytes Auto (Bld) [Pure # fraction] 1.4 E9/L Normal 1.0-4.0 [facility] Comment on above: Order Comment: Order Added by Discern Expert. Performed By: #### 2 247247, 98435538, 5997736, 3217049 ####[address] [address] Monocytes/100 WBC (Bld) 10.0 % Normal 4.0-14.0 [facility] Comment on above: Order Comment: Order Added by Discern Expert. Performed By: #### 2 429127, 83304303, 9380696, 3723389 ####[address] [address] Monocytes/Leukocytes Auto (Bld) [Pure # fraction] 0.8 E9/L Normal 0.2-1.0 [facility] Comment on above: Order Comment: Order Added by Discern Expert. Performed By: #### 2 569372, 14551829, 6577047, 0790274 ####[address] [address] Neutrophils/100 WBC (Bld) 62.8 % Normal 36.0-75.0 [facility] Comment on above: Order Comment: Order Added by Discern Expert. Performed By: #### 2 888249, 99626383, 2607331, 9081974 ####[address] [address] Neutrophils/Leukocytes Auto (Bld) [Pure # fraction] 5.2 E9/L Normal 2.0-7.5 [facility] Comment on above: Order Comment: Order Added by Discern Expert. Performed By: #### 2 932017, 17742607, 6130762, 1169751 ####[address] [address] CBC w/ Auto Diffon 3 Erythrocyte distribution width (RBC) [Ratio] 15.2 % High 10.9-14.2 [facility] Comment on above: Performed By: #### 2 799016, 01168753, 6440101, 3828553 ####[address] [address] Hematocrit (Bld) [Volume fraction] 43.1 % Normal 37.7-49.0 [facility] Comment on above: Performed By: #### 2 569868, 82229504, 1699001, 5244688 ####[address] [address] Hemoglobin (Bld) [Mass/Vol] 14.6 g/dL Normal 13.5-17.5 [facility] Comment on above: Performed By: #### 2 354584, 05205843, 2715910, 7813037 ####[facility] [address] [place] [address] MCH (RBC) [Entitic mass] 28.1 pg Normal 27.0-34.0 [facility] Comment on above: Performed By: #### 2 498288, 09018576, 6262894, 3806117 ####[address] [address] MCHC (RBC) [Mass/Vol] 33.8 g/dL Normal 31.4-36.0 [facility] Comment on above: Performed By: #### 2 496032, 56467456, 8699846, 8314677 ####[place] [address] MCV (RBC) [Entitic vol] 83.2 fL Normal 80.0-100.0 [facility] Comment on above: Performed By: #### 2 167660, 76100668, 5242219, 3178583 ####[address] [address] Platelet mean volume (Bld) [Entitic vol] 8.6 fL Normal 6.4-10.8 [facility] Comment on above: Performed By: #### 2 311659, 18765366, 9211644, 2436621 ####[facility] [address] [place] [address] Platelets (Bld) [#/Vol] 221.0 E9/L Normal 150.0-500.0 [facility] Comment on above: Performed By: #### 2 205605, 05228080, 2102779, 3959799 ####[facility] [address] [place] [address] RBC (Bld) [#/Vol] 5.2 E12/L Normal 4.3-5.9 [facility] Comment on above: Performed By: #### 2 866806, 61755779, 7631460, 9094099 ####[facility] [address] [place] [address] WBC corrected for nucl RBC Auto (Bld) [#/Vol] 8.3 E9/L Normal 4.0-11.0 [facility] Comment on above: Performed By: #### 2 722208, 68781546, 6710342, 2316668 ####[facility] [address] [place] [address] CHEMISTRYOrdered By: Lab ROP User on 01-22-2023 Glucose [Mass/Vol] 121 mg/dL High 55 - 99 mg/dL [facility] Subsection Comment on above: Result Comment: Gareth guerrero RN/ POC Device SN [id number] Invalid Interpretation Code [facility] Subsection POC User ID [id number] Invalid Interpretation Code [facility] Subsection POC Username LATONIA MALHOTRA Invalid Interpretation Code [facility] P[facility] Subsection CHEMISTRYOrdered By: SYSTEM SYSTEM on [...] 101 - 1 11 mmol/L [facility] CO2 [Moles/Vol] 30 mmol/L Normal 21 - 31 mmol/L [facility] Creatinine [Mass/Vol] 1.3 mg/dL Normal 0.5 - 1.3 mg/dL [facility] GFR/1.73 sq M.predicted among non-blacks MDRD (S/P/Bld) [Vol rate/Area] 56 mL/min/1.73 m2 Low >=59mL/min/ 1.73 m2 FT Chem S Globulin (S) [Mass/Vol] 3.6 g/dL [...] 01-22-2023 Albumin [Mass/Vol] 3.7 g/dL Normal 3.3-5.0 [facility] Comment on above: Performed By: #### 2 874509, 08309916, 8626033, 7271803 ####[facility] [address] [place] [address] Albumin/Globulin (S) [Mass conc ratio] 1.0 Low 1.1-2.2 [facility] Comment on above: Performed By: #### 2 901091, 07803465, 8336251, 6691604 ####[facility] [address] [place] [address] ALP [Catalytic activity/Vol] 47 Int._Unit/L Normal 21-98 [facility] Comment on above: Performed By: #### 2 130801, 23406826, 9142605, 8359994 ####[facility] [address] [place] [address] ALT No additional P-5'-P [Catalytic activity/Vol] 21 Int._Unit/L Normal 6-46 [facility] Comment on above: Performed By: #### 2 536670, 32257159, 2578959, 0541793 ####[facility] [address] [facility] [place] [address] Anion gap [Moles/Vol] 15 mmol/L Normal 6-16 [facility] Comment on above: Performed By: #### 2 529303, 49671629, 6775659, 8012550 ####[facility] [address] [place] [address] AST [Catalytic activity/Vol] 21 Int._Unit/L Normal 5-43 [facility] Comment on above: Performed By: #### 2 871183, 62456269, 6137145, 6051986 ####[facility] [address] [facility] [place] [address] Bilirubin [Mass/Vol] 0.8 mg/dL Normal 0.0-1.1 [facility] Comment on above: Performed By: #### 2 389182, 08973200, 9837361, 3310079 ####[facility] [address] [place] [address] Calcium [Mass/Vol] 9.6 mg/dL Normal 8.9-11.1 [facility] Comment on above: Performed By: #### 2 097755, 73468927, 4772812, 4012049 ####[facility] [address] [place] [address] Chloride [Moles/Vol] 97 mmol/L Low 101-111 [facility] Comment on above: Performed By: #### 2 233586, 17220272, 9918174, 0504955 ####[facility] [address] [place] [address] CO2 [Moles/Vol] 30 mmol/L Normal 21-31 [facility] Comment on above: Performed By: #### 2 313983, 54515006, 8108003, 4105249 ####[facility] [address] [place] [address] Creatinine [Mass/Vol] 1.3 mg/dL Normal 0.5-1.3 [facility] Comment on above: Performed By: #### 2 726471, 26810933, 4661137, 8698528 ####[facility] [address] [place] [address] Globulin (S) [Mass/Vol] 3.6 g/dL Normal 1.4-4.0 [facility] Comment on above: Performed By: #### 2 585335, 95958796, 6040316, 1009513 ####[facility] [address] [place] [address] Glucose [Mass/Vol] 124 mg/dL Normal 55-199 [facility] Comment on above: Result Comment: If t his glucose result represents a fasting glucose, interpretation should refer to the following reference range: 55-99 mg/dL Performed By: #### 2 445226, 15560778, 3433810, 7568638 ####[facility] [address] [place] [address] Potassium [Moles/Vol] 4.0 mmol/L Normal 3.5-5.3 [facility] Comment on above: Performed By: #### 2 692888, 68042017, 1064690, 2313833 ####[facility] [address] [place] [address] Protein [Mass/Vol] 7.3 g/dL Normal 6.0-7.8 [facility] Comment on above: Performed By: #### 2 474841, 97098430, 4671023, 3159813 ####[facility] [address] [place] [address] Sodium [Moles/Vol] 138 mmol/L Normal 135-145 [facility] Comment on above: Performed By: #### 2 296671, 22148574, 9125118, 7565127 ####[facility] [address] [place] [address] Urea nitrogen [Mass/Vol] 42 mg/dL High 5-21 [facility] Comment on above: Performed By: #### 2 730003, 11641202, 6272129, 6150847 ####[facility] [address] [place] [address] Urea nitrogen/Creatinine [Mass ratio] 32 No Units High 10-20 [facility] Comment on above: Performed By: #### 2 011817, 71200524, 9751396, 9422936 ####[facility] [address] [place] [address] Capillary Glucose POCon Glucose [Mass/Vol] 121 mg/dL High 55-99 [facility] Comment on above: Result Comment: Gareth guerrero RN/ Performed By: #### 2 [id number] ####[facility] [address] [place] [address] Coding Queryon 01-22-2023 Coding Query Normal [facility] HEMATOLOGYOrdered By: SYSTEM SYSTEM on 01-22-2023 [...] 8.3 E9/L Normal 4.0 - 11.0 E9/L FT HemeAutoSS Insurance Correspondence Off iceon 01-22-2023 Insurance Correspondence Office [id number]#1 .00CD:127 Normal [facility] Interdisciplinary Note - Santosh e Manageron 01-22-2023 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 Normal [facility] Comment on above: Result Comment: Elec tronically Signed By: Natalie Grant\.br\Date and Time Signed: 01/22/23 11:13 EDT Interdisciplinary Note - Murphy n 01-22-2023 Interdisciplinary Note - OT Normal [facility] Interdisciplinary Note - PTo n 01-22-2023 Interdisciplinary Note - PT Normal [facility] Message from Medicareon 090 Message from Medicare [id number]#1 .00CD:127 Normal [facility] Progress Note-Physicianon Progress Note-Physician Normal [facility] Comment on above: Result Comment: Elec tronically Signed By: New Johnson DO.br\Date and Time Signed: 01/22/23 14:15 EDT eGFRon 01-22-2023 GFR/1.73 sq M.predicted among non-blacks MDRD (S/P/Bld) [Vol rate/Area] 56 mL/min/1.73 m2 Low >=59 [facility] Comment on above: Order Comment: Order added by Discern Expert. Result Comment: Manager Recovery earnest kidney disease could be indicated at eGFR's of less than 60 mL/min/1.73m2. Kidney failure is indicated at less than 15 mL/min/1.73m2. Performed By: #### 2 766261, 37009691, 6571965, 3189161 ####[facility] [address] [place] [address] Auto Diffon 01-21-2023 Basophils/100 WBC (Bld) 0.9 % Normal 0.0-2.0 [facility] Comment on above: Order Comment: Order Added by Discern Expert. Performed By: #### 2 356268, 7771981, 94555961, 15964665, 6212832, 0111909 ####[facility] [address] [place] [address] Basophils/Leukocytes Auto (Bld) [Pure # fraction] 0.1 E9/L Normal 0.0-0.2 [facility] Comment on above: Order Comment: Order Added by Discern Expert. Performed By: #### 2 611442, 2261096, 22903909, 30415322, 2693108, 3287061 ####[facility] [address] [place] [address] Eosinophils/100 WBC (Bld) 3.3 % Normal 0.0-8.0 [facility] Comment on above: Order Comment: Order Added by Discern Expert. Performed By: #### 2 390254, 4545526, 88737109, 43021663, 8677458, 5581016 ####[facility] [address] [place] [address] Eosinophils/Leukocytes Auto (Bld) [Pure # fraction] 0.4 E9/L Normal 0.0-0.5 [facility] Comment on above: Order Comment: Order Added by Discern Expert. Performed By: #### 2 394355, 8660190, 04912157, 04352403, 9149847, 7700204 ####[address] [address] Lymphocytes/100 WBC (Bld) 10.4 % Low 14.0-50.0 [facility] Comment on above: Order Comment: Order Added by Discern Expert. Performed By: #### 2 665043, 1879334, 19242601, 07206889, 1469195, 3722547 ####[address] [address] Lymphocytes/Leukocytes Auto (Bld) [Pure # fraction] 1.2 E9/L Normal 1.0-4.0 [facility] Comment on above: Order Comment: Order Added by Discern Expert. Performed By: #### 2 019099, 0518302, 54970858, 05248878, 9362724, 6483311 ####[place] [address] [place] [address] Monocytes/100 WBC (Bld) 7.4 % Normal 4.0-14.0 [facility] Comment on above: Order Comment: Order Added by Discern Expert. Performed By: #### 2 625459, 7181380, 61211376, 96717854, 2464687, 3576392 ####[facility] [address] [place] [address] Monocytes/Leukocytes Auto (Bld) [Pure # fraction] 0.9 E9/L Normal 0.2-1.0 [facility] Comment on above: Order Comment: Order Added by Discern Expert. Performed By: #### 2 281738, 1832831, 96496976, 93173691, 7540551, 3153957 ####[place] [address] [place] [address] Neutrophils/100 WBC (Bld) 78.0 % High 36.0-75.0 [facility] Comment on above: Order Comment: Order Added by Discern Expert. Performed By: #### 2 744801, 7709826, 24414029, 50216690, 1482003, 0083445 ####[place] [address] [place] [address] Neutrophils/Leukocytes Auto (Bld) [Pure # fraction] 9.1 E9/L High 2.0-7.5 [facility] Comment on above: Order Comment: Order Added by Discern Expert. Performed By: #### 2 620746, 7389576, 39777826, 34831261, 0355495, 4385839 ####[facility] [address] [place] [address] BMPon 01-21-2023 Creatinine [Mass/Vol] 1.2 mg/dL Normal 0.5-1.3 [facility] Comment on above: Performed By: #### 2 019179, 6423751, 07441214, 20877417, 4404483, 5041801 ####[facility] [address] [place] [address] Urea nitrogen [Mass/Vol] 38 mg/dL High 5-21 [facility] Comment on above: Performed By: #### 2 382858, 6813521, 30070187, 06818719, 5432863, 3443518 ####[facility] [address] [place] [address] Urea nitrogen/Creatinine [Mass ratio] 32 No Units High 10-20 [facility] Comment on above: Performed By: #### 2 635492, 8317447, 40598010, 59626695, 8971342, 5392600 ####[facility] [address] [place] [address] Anion gap [Moles/Vol] 14 mmol/L Normal 6-16 [facility] Comment on above: Performed By: #### 2 182429, 5200302, 01824091, 54795344, 2629506, 8092709 ####[facility] [address] [place] [address] Calcium [Mass/Vol] 9.9 mg/dL Normal 8.9-11.1 [facility] Comment on above: Performed By: #### 2 794652, 1813431, 68140212, 66722125, 3881005, 9784209 ####[facility] [address] [place] [address] Chloride [Moles/Vol] 95 mmol/L Low 101-111 [facility] Comment on above: Performed By: #### 2 031522, 4660069, 54984637, 26741510, 3346446, 4030000 ####[facility] [address] [place] [address] CO2 [Moles/Vol] 31 mmol/L Normal 21-31 [facility] Comment on above: Performed By: #### 2 247851, 4116597, 92464945, 94786686, 5045232, 9203963 ####[facility] [address] [place] [address] Glucose [Mass/Vol] 124 mg/dL Normal 55-199 [facility] Comment on above: Result Comment: If t his glucose result represents a fasting glucose, interpretation should refer to the following reference range: 55-99 mg/dL Performed By: #### 2 623993, 9350887, 84078867, 08404790, 6446597, 0097467 ####[facility] [address] [place] [address] Potassium [Moles/Vol] 4.3 mmol/L Normal 3.5-5.3 [facility] Comment on above: Performed By: #### 2 691528, 6506841, 73244252, 97244147, 6229134, 5366393 ####[facility] [address] [place] [address] Sodium [Moles/Vol] 136 mmol/L Normal 135-145 [facility] Comment on above: Performed By: #### 2 687182, 6895042, 87110842, 32656093, 8750630, 6883729 ####[facility] [address] [place] [address] CBC w/ Auto Diffon Erythrocyte distribution width (RBC) [Ratio] 15.4 % High 10.9-14.2 [facility] Comment on above: Performed By: #### 2 139950, 3853274, 90437668, 80455052, 5650670, 6331804 ####[facility] [address] [place] [address] Hematocrit (Bld) [Volume fraction] 42.5 % Normal 37.7-49.0 [facility] Comment on above: Performed By: #### 2 170431, 0711192, 62722534, 73892097, 5220176, 0912714 ####[facility] [address] [place] [address] Hemoglobin (Bld) [Mass/Vol] 13.9 g/dL Normal 13.5-17.5 [facility] Comment on above: Performed By: #### 2 461018, 4102996, 38758791, 40037754, 7605196, 8487207 ####[facility] [address] [place] [address] MCH (RBC) [Entitic mass] 27.3 pg Normal 27.0-34.0 [facility] Comment on above: Performed By: #### 2 563802, 8164802, 51026254, 31808359, 6440039, 6317885 ####[facility] [address] [place] [address] MCHC (RBC) [Mass/Vol] 32.7 g/dL Normal 31.4-36.0 [facility] Comment on above: Performed By: #### 2 226084, 1065777, 29037372, 74742300, 4106754, 9520120 ####[place] [address] MCV (RBC) [Entitic vol] 83.4 fL Normal 80.0-100.0 [facility] Comment on above: Performed By: #### 2 570192, 3170719, 28425612, 53121010, 6677273, 9672858 ####[address] [address] Platelet mean volume (Bld) [Entitic vol] 8.6 fL Normal 6.4-10.8 [facility] Comment on above: Performed By: #### 2 640917, 4007999, 84675851, 65151809, 3336182, 9695366 ####[address] [address] Platelets (Bld) [#/Vol] 252.0 E9/L Normal 150.0-500.0 [facility] Comment on above: Performed By: #### 2 638660, 3163297, 29130070, 29319975, 5531509, 9788527 ####[address] [address] RBC (Bld) [#/Vol] 5.1 E12/L Normal 4.3-5.9 [facility] Comment on above: Performed By: #### 2 825641, 9885005, 32613540, 94747333, 5579117, 7354965 ####[facility] [address] [place] [address] WBC corrected for nucl RBC Auto (Bld) [#/Vol] 11.6 E9/L High 4.0-11.0 [facility] Comment on above: Performed By: #### 2 770252, 7800161, 47995576, 26088980, 6868892, 2982351 ####[facility] [address] [place] [address] CHEMISTRYOrdered By: SYSTEM SYSTEM on 01-21-2023 Troponin [...] 62 mL/min/1.73 m2 Normal >=59mL/min/ 1.73 m2 FT Chem S Globulin (S) [Mass/Vol] 3.8 g/dL [...] Treatmenton 12-24 Consent for Treatment [id number] .00CD:127 Normal [facility] ED Clinical Summaryon 2022 ED Clinical Summary Normal [facility] ED Note-Physicianon 01-22-20 ED Note-Physician Normal [facility] Comment on above: Result Comment: Elec tronically Signed By: Gustavo Yusuf DO.br\Date and Time Signed: 01/21/23 19:26 EDT ED Patient Education Noteon 01-21-2023 ED Patient Education Note Normal [facility] ED Patient Summaryon 023 ED Patient Summary Normal [facility] HEMATOLOGYOrdered By: SYSTEM SYSTEM on 01-21-2023 [...] 5.1 E12/L Normal 4.3 - 5.9 E12/L [facility] HemeAutoSS WBC corrected for nucl RBC Auto (Bld) [#/Vol] 11.6 E9/L High 4.0 - 11.0 E9/L [facility] HemeAutoSS Hep Func Panelon 01-21-2023 Bilirubin.direct [Mass/Vol] 0.1 mg/dL Normal 0.1-0.4 [facility] Comment on above: Performed By: #### 2 336859, 3300652, 08781543, 79881747, 9694466, 1450492 ####[facility] [address] [place] [address] Bilirubin.indirect [Mass or moles/Vol] 0.8 mg/dL Normal 0.1-0.9 [facility] Comment on above: Performed By: #### 2 582070, 7846291, 01107381, 86243065, 3540253, 8964701 ####[facility] [address] [place] [address] Albumin [Mass/Vol] 3.9 g/dL Normal 3.3-5.0 [facility] Comment on above: Performed By: #### 2 140707, 1599552, 82470255, 64753603, 0241774, 0152815 ####[facility] [address] [place] [address] Albumin/Globulin (S) [Mass conc ratio] 1.0 Low 1.1-2.2 [facility] Comment on above: Performed By: #### 2 728194, 4132675, 67250310, 97978282, 6015519, 8751159 ####[address] [place] [address] ALP [Catalytic activity/Vol] 50 Int._Unit/L Normal 21-98 [facility] Comment on above: Performed By: #### 2 124735, 0354831, 28515642, 34510332, 5951844, 5850669 ####[facility] [address] [place] [address] ALT No additional P-5'-P [Catalytic activity/Vol] 23 Int._Unit/L Normal 6-46 [facility] Comment on above: Performed By: #### 2 221505, 4212224, 37228910, 89860239, 0428656, 4884128 ####[facility] [address] [place] [address] AST [Catalytic activity/Vol] 22 Int._Unit/L Normal 5-43 [facility] Comment on above: Performed By: #### 2 929609, 4806921, 85293187, 15509732, 4344725, 5663420 ####[facility] [address] [place] [address] Bilirubin [Mass/Vol] 0.9 mg/dL Normal 0.0-1.1 [facility] Comment on above: Performed By: #### 2 769205, 7710280, 35847090, 97311809, 2403078, 9113649 ####[facility] [address] [place] [address] Globulin (S) [Mass/Vol] 3.8 g/dL Normal 1.4-4.0 [facility] Comment on above: Performed By: #### 2 237247, 3485702, 67587433, 23075500, 2485249, 9376950 ####[facility] [address] [place] [address] Protein [Mass/Vol] 7.7 g/dL Normal 6.0-7.8 [facility] Comment on above: Performed By: #### 2 696989, 7115515, 59179486, 94144635, 8550806, 2180479 ####[facility] [address] [place] [address] Mcc Recordson 01-21 M[facility] Records [id number]# 1.00CD:127 Normal [facility] Troponin 0 Hr.on 01-21-2023 Troponin I.cardiac [Mass/Vol] 25.50 pg/mL Normal 15.90-38.40 [facility] Comment on above: Result Comment: The 95% CI (Confidence Interval) PPV (Positive Predictive Value) for myocardial infarction in females is 38 pg/mL, in males 51 pg/mL. The results should be used in conjunction with clinical conditions of myocardial infarction.(Access High Sensitivity Troponin I Instructions For Use, [employer], December 2017) Performed By: #### 2 019317, 3887787, 82928826, 18928407, 0524813, 7275992 ####[address] [address] Troponin 3 Hr.on 01-21-2023 Troponin I.cardiac [Mass/Vol] 23.90 pg/mL Normal 15.90-38.40 [facility] Comment on above: Result Comment: The 95% CI (Confidence Interval) PPV (Positive Predictive Value) for myocardial infarction in females is 38 pg/mL, in males 51 pg/mL. The results should be used in conjunction with clinical conditions of myocardial infarction.(Tier 3 High Sensitivity Troponin I Instructions For Use, [employer], December 2017) Performed By: #### 1 6044669 ####[address] [address] UA With Cult Reflexon 2022 Bilirubin Ql (U) Negative Normal Negative [facility] Comment on above: Performed By: #### 1 4733984 ####[address] [address] Clarity (U) CLEAR Normal Clear [facility] Comment on above: Performed By: #### 1 2211042 ####[address] [address] Color (U) STRAW Abnormal Yellow [facility] Comment on above: Performed By: #### 1 8064046 ####[address] [address] Epithelial cells.squamous LM.HPF (Urine sed) [#/Area] 0-2 Normal 0-2 [facility] Comment on above: Performed By: #### 1 3742793 ####[address] [address] Glucose Test strip (U) [Mass/Vol] Negative Normal Negative [facility] Comment on above: Performed By: #### 1 0719377 ####[address] [address] Hemoglobin Ql (U) Negative Normal Negative [facility] Comment on above: Performed By: #### 1 4291928 ####[address] [address] Ketones (U) [Mass/Vol] Negative Normal Negative [facility] Comment on above: Performed By: #### 1 8503183 ####[address] [address] Fircrest.plasma/Fircrest.R BC (Bld) [Mass ratio] 0-3 Normal 0-3 [facility] Comment on above: Performed By: #### 1 2738399 ####[address] [address] Nitrite Ql (U) Negative Normal Negative [facility] Comment on above: Performed By: #### 1 5813820 ####[address] [address] pH (U) 6.0 [pH] Invalid Interpretation Code 5.0-9.0 [facility] Comment on above: Performed By: #### 1 9688119 ####[address] [address] Protein (U) [Mass/Vol] Negative Normal Negative [facility] Comment on above: Performed By: #### 1 7648493 ####[address] [address] Specific gravity (U) [Rel density] 1.010 Invalid Interpretation Code 1.005-1.030 [facility] Comment on above: Performed By: #### 1 8538473 ####[address] [address] Type of Urine collection method Clean Catch Normal [facility] Comment on above: Performed By: #### 1 2199726 ####[facility] [address] [place] [address] Urobilinogen Qn (U) 0.2 {Lei'U}/dL Normal 0.0-1.0 [facility] Comment on above: Performed By: #### 1 4243095 ####[facility] [address] [place] [address] WBC Auto Ql (U) Negative Normal Negative [facility] Comment on above: Performed By: #### 1 6581697 ####[facility] [address] [place] [address] WBC LM.HPF (Urine sed) [#/Area] 0-5 Normal 0-5 [facility] Comment on above: Performed By: #### 1 6936734 ####[facility] [address] [place] [address] URINALYSISOrdered By: Karen Vergara on 01-21-2023 Bilirubin [...] PM) Normal Negative [facility] UA Auto SS Fircrest.plasma/Fircrest.R BC (Bld) [Mass ratio] 0-3 /HPF Normal 0-3/HPF [facility] UA Au to SS Nitrite Ql (U) Negative (01/21/23 4:41 PM) Normal Negative [facility] UA Auto SS pH (U) 6.0 *NA* (01/21/23 4:41 PM) Invalid Interpretation Code 5.0 - 9.0 [facility] UA Auto SS Protein (U) [Mass/Vol] Negative (01/21/23 4:41 PM) Normal Negative [facility] UA Auto SS Specific gravity (U) [Rel density] 1.010 *NA* (01/21/23 4:41 PM) Invalid Interpretation Code 1.005 - 1.030 [facility] UA Auto SS UA Spec Desc Clean Catch (01/21/23 4:41 PM) Normal [facility] UA Auto SS Urobilinogen Qn (U) 0.0200594 {Lei'U}/dL Normal 0.0 - 1.0 EU/dL [facility] UA Auto SS WBC Auto Ql (U) Negative (01/21/23 4:41 PM) Normal Negative [facility] UA Auto SS WBC LM.HPF (Urine sed) [#/Area] 0-5 /HPF Normal 0-5/HPF [facility] UA Auto SS XR Chest Single Viewon 01-21 XR Chest Single View Normal [facility] eGFRon 01-21-2023 GFR/1.73 sq M.predicted among non-blacks MDRD (S/P/Bld) [Vol rate/Area] 62 mL/min/1.73 m2 Normal >=59 [facility] Comment on above: Order Comment: Order added by Discern Expert. Result Comment: Manager Recovery earnest kidney disease could be indicated at eGFR's of less than 60 mL/min/1.73m2. Kidney failure is indicated at less than 15 mL/min/1.73m2. Performed By: #### 2 191617, 2601248, 22037756, 27525726, 9260640, 8981705 ####[facility] [address] [place] [address] Discharge Instructionson Discharge Instructions [id number]#1 .00CD:127 Normal [facility] Capillary Glucose POCon 12-23 Glucose [Mass/Vol] 117 mg/dL High 55-99 [facility] Comment on above: Result Comment: Yazmin bri Meter Performed By: #### 2 06247638 ####[facility] [address] [place] [address] Family Medicine Office/Clini c Noteon 01-15-2023 Family Medicine Office/Clinic Note Normal [facility] Comment on above: Result Comment: Elec tronically Signed By: SHAISTA POTTS, Dennise.br\Date and Time Signed: 01/15/23 16:46 EDT Capillary Glucose POCon 12-23 Glucose [Mass/Vol] 121 mg/dL High [address] [place] [address] Comment on above: Result Comment: Yazmin bri Meter Performed By: #### 2 [id number] ####[facility] [address] [place] [address] Capillary Glucose POCon 12-23 Glucose [Mass/Vol] 127 mg/dL [address] Comment on above: Result Comment: Yazmin bri Meter Performed By: #### 2 59852042 ####[facility] [address] [place] [address] Capillary Glucose POCon 12-22 Glucose [Mass/Vol] 104 mg/dL [address] Comment on above: Result Comment: Yazmin bri Meter Performed By: #### 2 16071785 ####[facility] [address] [place] [address] Capillary Glucose POCon 12-22 Glucose [Mass/Vol] 121 mg/dL [address] Comment on above: Result Comment: Yazmin bri Meter Performed By: #### 2 27369754 ####[facility] [address] [place] [address] Capillary Glucose POCon 12-22 Glucose [Mass/Vol] 110 mg/dL [address] Comment on above: Result Comment: Yazmin bri Meter Performed By: #### 2 56966641 ####[facility] [address] [place] [address] Capillary Glucose POCon 12-22 Glucose [Mass/Vol] 119 mg/dL [address] Comment on above: Result Comment: Yazmin bri Meter Performed By: #### 2 64108576 ####[facility] [address] [place] [address] Capillary Glucose POCon 12-22 Glucose [Mass/Vol] 141 mg/dL High 55-99 [facility] Comment on above: Result Comment: Yazmin bri Meter Performed By: #### 2 83745854 ####[facility] [address] [place] [address] Capillary Glucose POCon 12-22 Glucose [Mass/Vol] 104 mg/dL High 55-99 [facility] Comment on above: Result Comment: Yazmin bri Meter Performed By: #### 2 78594065 ####[facility] [address] [place] [address] BMPon 12-30-2022 Calcium [Mass/Vol] 9.1 mg/dL Normal 8.9-11.1 [facility] Comment on above: Performed By: #### 7 57547830, 9513113, 81353926 ####[facility] [address] [place] [address] Anion gap [Moles/Vol] 18 mmol/L High 6-16 [facility] Comment on above: Performed By: #### 7 95918192, 9441717, 92882905 ####[facility] [address] [place] [address] Chloride [Moles/Vol] 91 mmol/L Low 101-111 [facility] Comment on above: Performed By: #### 7 39683987, 1070494, 66137207 ####[facility] [address] [place] [address] CO2 [Moles/Vol] 30 mmol/L Normal 21-31 [facility] Comment on above: Performed By: #### 7 35521339, 9925114, 70471390 ####[facility] [address] [place] [address] Creatinine [Mass/Vol] 1.3 mg/dL Normal 0.5-1.3 [facility] Comment on above: Performed By: #### 7 05566644, 6004220, 11093615 ####[facility] [address] [place] [address] Glucose [Mass/Vol] 171 mg/dL Normal 55-199 [facility] Comment on above: Result Comment: If t his glucose result represents a fasting glucose, interpretation should refer to the following reference range: 55-99 mg/dL Performed By: #### 7 [id number], 9953792, 57952687 ####[facility] [address] [place] [address] Potassium [Moles/Vol] 4.2 mmol/L Normal 3.5-5.3 [facility] Comment on above: Performed By: #### 7 99932242, 1286240, 28318050 ####[facility] [address] [place] [address] Sodium [Moles/Vol] 135 mmol/L Normal 135-145 [facility] Comment on above: Performed By: #### 7 92359768, 1071000, 69678885 ####[facility] [address] [place] [address] Urea nitrogen [Mass/Vol] 36 mg/dL High 5-21 [facility] Comment on above: Performed By: #### 7 66261016, 1260413, 97633982 ####[facility] [address] [place] [address] Urea nitrogen/Creatinine [Mass ratio] 28 No Units High 10-20 [facility] Comment on above: Performed By: #### 7 30691620, 0995164, 71958603 ####[facility] [address] [place] [address] DkqU5lsk 12-30-2022 HbA1c (Bld) [Mass fraction] 6.9 % High <=5.9 [facility] Comment on above: Performed By: #### 7 42166050, 7834389, 89280921 ####[facility] [address] [place] [address] eGFRon 12-30-2022 GFR/1.73 sq M.predicted among non-blacks MDRD (S/P/Bld) [Vol rate/Area] 56 mL/min/1.73 m2 Low >=59 [facility] Comment on above: Order Comment: Order added by Discern Expert. Result Comment: Manager Recovery earnest kidney disease could be indicated at eGFR's of less than 60 mL/min/1.73m2. Kidney failure is indicated at less than 15 mL/min/1.73m2. Performed By: #### 7 [id number], 1857515, 78932351 ####[facility] [address] [place] [address] Capillary Glucose POCon 08-0 Glucose [Mass/Vol] 141 mg/dL [facility] 55-99 [facility] Comment on above: Result Comment: Yazmin bri Meter Performed By: #### 2 07610118 ####[facility] [address] [place] [address] Capillary Glucose POCon 08-0 Glucose [Mass/Vol] 101 mg/dL [address] Comment on above: Result Comment: Yazmin bri Meter Performed By: #### 2 72427338 ####[facility] [address] [place] [address] C Blood Charcoalon 3 Blood Culture Charcoal Normal [facility] Comment on above: Performed By: #### 1 2749632 ####[facility] [address] [place] [address] Capillary Glucose POCon 08-0 Glucose [Mass/Vol] 135 mg/dL [facility] [address] [place] [address] Comment on above: Result Comment: Yazmin bri Meter Performed By: #### 2 23360904 ####[facility] [address] [place] [address] Capillary Glucose POCon 08-0 Glucose [Mass/Vol] 110 mg/dL [facility] 55-99 [facility] Comment on above: Result Comment: Yazmin bri Meter Performed By: #### 2 73024431 ####[facility] [address] [place] [address] Consultation Noteon 12-24-19 Consultation Note Normal [facility] Comment on above: Result Comment: Elec tronically Signed By: Marcus POTTS, [place]\.br\Date and Time Signed: 12/23/22 07:33 EDT Family Medicine Office/Clini c Noteon 12-23-2022 Family Medicine Office/Clinic Note Normal [facility] Comment on above: Result Comment: Elec tronically Signed By: SHAISTA POTTS, Donta\.br\Date and Time Signed: 12/22/22 22:31 EDT C Blood Charcoalon Blood Culture Charcoal Normal [facility] Comment on above: Performed By: #### 1 3849915 ####[facility] [address] [place] [address] U Legi Agon 12-22-2022 L. pneumophila 1 Ag IA Ql (U) Negative Invalid Interpretation Code Negative [facility] Comment on above: Result Comment: Pres umptive negative for L. pneumophila serogroup 1 antigen in urine,suggesting no recent or current infection. Legionnaires' diseasecannot be ruled out since other serogroups and species may also causedisease.Performed at: [facility] [id number] MD Tyler Gurrola Performed By: #### 2 511334 ####[facility] [address] [place] [address] C Urineon 12-21-2022 Bacteria identified Cx Nom (U) Normal [facility] Comment on above: Performed By: #### 1 4199275, 8206248 ####[facility] [address] [place] [address] Capillary Glucose POCon 11-23 Glucose [Mass/Vol] 134 mg/dL High 55-99 [facility] Comment on above: Result Comment: Yazmin bri Meter Performed By: #### 2 84327982 ####Tanner Wojciech [address] [address] Auto DiffOrdered By: SYSTEM SYSTEM on 12-20-2022 Basophils/100 WBC (Bld) 0.5 % Normal 0.0-2.0 F C HemeAutoSS Comment on above: Order Comment: Order Added by Discern Expert. Performed By: #### 2 358348, 5291381, 76883503, 2327089 ####[address] [address] Basophils/Leukocytes Auto (Bld) [Pure # fraction] 0.0 E9/L Normal 0.0-0.2 [facility] HemeAutoSS Comment on above: Order Comment: Order Added by Bethany Expert. Performed By: #### 2 395746, 5674026, 29644667, 8480371 ####[address] [address] Eosinophils/100 WBC (Bld) 7.9 % Normal 0.0-8.0 FT HemeAutoSS Comment on above: Order Comment: Order Added by Bethany Expert. Performed By: #### 2 856537, 6568351, 81964404, 3551953 ####[address] [address] Eosinophils/Leukocytes Auto (Bld) [Pure # fraction] 0.8 E9/L High 0.0-0.5 [facility] HemeAutoSS Comment on above: Order Comment: Order Added by Bethany Expert. Performed By: #### 2 048166, 3273774, 81536045, 7305453 ####[address] [address] Lymphocytes/100 WBC (Bld) 9.5 % Low 14.0-50.0 [facility] HemeAutoSS Comment on above: Order Comment: Order Added by Bethany Expert. Performed By: #### 2 257608, 5633033, 10972517, 9638562 ####[address] [address] Lymphocytes/Leukocytes Auto (Bld) [Pure # fraction] 1.0 E9/L Normal 1.0-4.0 [facility] HemeAutoSS Comment on above: Order Comment: Order Added by Discern Expert. Performed By: #### 2 048944, 5766938, 44748334, 6745139 ####[address] [place] [address] Monocytes/100 WBC (Bld) 7.6 % Normal 4.0-14.0 F [facility] HemeAutoSS Comment on above: Order Comment: Order Added by Discern Expert. Performed By: #### 2 350209, 4540307, 93603688, 9583683 ####[address] [address] Monocytes/Leukocytes Auto (Bld) [Pure # fraction] 0.8 E9/L Normal 0.2-1.0 [facility] HemeAutoSS Comment on above: Order Comment: Order Added by Discern Expert. Performed By: #### 2 597327, 4256824, 36789231, 3905698 ####[address] [address] Neutrophils/100 WBC (Bld) 74.5 % Normal 36.0-75.0 [facility] HemeAutoSS Comment on above: Order Comment: Order Added by Discern Expert. Performed By: #### 2 479564, 9242161, 97400749, 8090278 ####[address] [address] Neutrophils/Leukocytes Auto (Bld) [Pure # fraction] 7.7 E9/L High 2.0-7.5 [facility] HemeAutoSS Comment on above: Order Comment: Order Added by Discern Expert. Performed By: #### 2 182952, 3786218, 76273018, 4900954 ####[address] [address] BMPOrdered By: SYSTEM SYSTEM on 12-20-2022 Anion gap [Moles/Vol] 8 mmol/L Normal 6-16 [facility] C Remisol Comment on above: Performed By: #### 2 142299, 4074232, 62040270, 1517120 ####[address] [address] Calcium [Mass/Vol] 7.9 mg/dL Low 8.9-11.1 [facility] emisol Comment on above: Performed By: #### 2 513977, 5760761, 69720207, 3395260 ####[facility] [address] [place] [address] Chloride [Moles/Vol] 105 mmol/L Normal 101-111 [facility] Remisol Comment on above: Performed By: #### 2 964960, 5949439, 91427006, 6142224 ####[facility] [address] [place] [address] CO2 [Moles/Vol] 25 mmol/L Normal 21-31 [facility] Ashwin luanne Comment on above: Performed By: #### 2 132393, 1624731, 96715569, 4985793 ####[facility] [address] [place] [address] Creatinine [Mass/Vol] 1.0 mg/dL Normal 0.5-1.3 [facility] C Remisol Comment on above: Performed By: #### 2 300456, 0513365, 82779746, 0804091 ####[facility] [address] [place] [address] Glucose [Mass/Vol] 106 mg/dL Normal 55-199 FT [facility] emisol Comment on above: Result Comment: If t his glucose result represents a fasting glucose, interpretation should refer to the following reference range: 55-99 mg/dL Performed By: #### 2 975026, 8587754, 34203827, 1489400 ####[facility] [address] [place] [address] Potassium [Moles/Vol] 4.4 mmol/L Normal 3.5-5.3 [facility] C Remisol Comment on above: Performed By: #### 2 744282, 8065297, 63376942, 2246388 ####[facility] [address] [place] [address] Sodium [Moles/Vol] 134 mmol/L Low 135-145 [facility] R emisol Comment on above: Performed By: #### 2 867065, 5867895, 54162958, 9776391 ####[facility] [address] [place] [address] Urea nitrogen [Mass/Vol] 22 mg/dL High 5-21 [facility] Remisol Comment on above: Performed By: #### 2 831452, 1189739, 31652883, 7841380 ####[facility] [address] [place] [address] BMPon 12-20-2022 Urea nitrogen/Creatinine [Mass ratio] 22 No Units High 10-20 [facility] Comment on above: Performed By: #### 2 982608, 6888198, 12015790, 5451832 ####[address] [address] CBC w/ Auto DiffOrdered By: Bony Hdez on 12-20-2022 Erythrocyte distribution width (RBC) [Ratio] 14.7 % High 10.9-14.2 [facility] HemeAutoSS Comment on above: Performed By: #### 2 294754, 2526334, 88860265, 2063403 ####[address] [address] Hematocrit (Bld) [Volume fraction] 34.6 % Low 37.7-49.0 [facility] HemeAutoSS Comment on above: Performed By: #### 2 883763, 4070468, 54375334, 4889270 ####[address] [address] Hemoglobin (Bld) [Mass/Vol] 11.7 g/dL Low 13.5-17.5 [facility] HemeAutoSS Comment on above: Performed By: #### 2 810176, 0616153, 09582752, [id number] ####[address] [address] MCH (RBC) [Entitic mass] 28.6 pg Normal 27.0-34.0 [facility] HemeAutoSS Comment on above: Performed By: #### 2 980175, 5570098, 14601710, 2833389 ####[place] [address] [address] MCHC (RBC) [Mass/Vol] 33.7 g/dL Normal 31.4-36.0 [facility] HemeAutoSS Comment on above: Performed By: #### 2 256871, 3544384, 10702640, 6095081 ####[place] [address] MCV (RBC) [Entitic vol] 84.7 fL Normal 80.0-100.0 [facility] HemeAutoSS Comment on above: Performed By: #### 2 636054, 5132565, 80204004, 5611611 ####[place] [address]646357 Platelet mean volume (Bld) [Entitic vol] 9.5 fL Normal 6.4-10.8 [facility] HemeAutoSS Comment on above: Performed By: #### 2 342279, 5458002, 40637805, 2161227 ####[place] [address] Platelets (Bld) [#/Vol] 216.0 E9/L Normal 150.0-500.0 [facility] HemeAutoSS Comment on above: Performed By: #### 2 061135, 2318700, 44604001, 3803780 ####[place] [address] RBC (Bld) [#/Vol] 4.1 E12/L Low 4.3-5.9 [facility] HemeAutoSS Comment on above: Performed By: #### 2 022102, 2927282, 44519794, 8716739 ####[address] [address] WBC corrected for nucl RBC Auto (Bld) [#/Vol] 10.3 E9/L Normal 4.0-11.0 [facility] HemeAutoSS Comment on above: Performed By: #### 2 917613, 5221551, 20176724, 2392354 ####[address] [place] [address] CHEMISTRYOrdered By: Lab ROP User on 12-20-2022 Glucose [Mass/Vol] 109 mg/dL High 55 - 99 mg/dL [facility] POC Subsection Comment on above: Result Comment: Gareth GARDINER POC Device SN [id number] Invalid Interpretation Code [facility] POC Subsection POC User ID [id number] Invalid Interpretation Code [facility] POC Subsection POC Username SAMANTHA LAMBERT Invalid Interpretation Code [facility] POC Subsection CHEMISTRYOrdered By: SYSTEM SYSTEM on 12-20-2022 Urea nitrogen/Creatinine [Mass ratio] 22 mg/mg High 10 - 20 [facility] Remisol Capillary Glucose POCon 11-23 Glucose [Mass/Vol] 198 mg/dL High 55-99 [facility] Comment on above: Result Comment: Yazmin bri Meter Performed By: #### 2 [id number] ####[facility] [address] [place] [address] Glucose [Mass/Vol] 109 mg/dL High 55-99 [facility] Comment on above: Result Comment: Gareth GARDINER Performed By: #### 2 [id number] ####[facility] [address] [place] [address] Discharge Documentationon Discharge Documentation [id number]#1 .00CD:127 Normal [facility] Inpatient Patient Summaryon 12-20-2022 Inpatient Patient Summary [facility] Message from Medicareon 11-23 Message from Medicare [id number]# 1.00CD:127 Normal [facility] Monitor Recordon 12-20-2022 Monitor Record [id number]# 1.00CD:127 Normal [facility] Monitor Record [id number]# 1.00CD:127 Normal [facility] Monitor Record [id number]# 1.00CD:127 Normal [facility] Progress Note-Nurseon 2022 Progress Note-Nurse SBAR report called fanta Robert. Patient was transferred into wheelchair x2 stand pivot. Patient discharged to [facility] room 17. Transport by Samantha Lambert POCT. Normal [facility] Transfer Documentson 023 Transfer Documents [id number]#1 .00CD:127 Normal [facility] eGFROrdered By: SYSTEM SYSTE M on 12-20-2022 GFR/1.73 sq M.predicted among non-blacks MDRD (S/P/Bld) [Vol rate/Area] 77 mL/min/1.73 m2 Normal >=59 [facility] Chem S Comment on above: Order Comment: Order added by Discern Expert. Result Comment: Manager Recovery earnest kidney disease could be indicated at eGFR's of less than 60 mL/min/1.73m2. Kidney failure is indicated at less than 15 mL/min/1.73m2. Performed By: #### 2 501697, 5454523, 66774479, 4733438 ####[facility] [address] [place] [address] Auto Diffon 12-19-2022 Basophils/100 WBC (Bld) 0.4 % Normal 0.0-2.0 [facility] Comment on above: Order Comment: Order Added by Discern Expert. Performed By: #### 1 6605177, 4922426, 3719459, 5989372 ####[facility] [address] [place] [address] Basophils/Leukocytes Auto (Bld) [Pure # fraction] 0.0 E9/L Normal 0.0-0.2 [facility] Comment on above: Order Comment: Order Added by Discern Expert. Performed By: #### 1 0637577, 1007589, 5449858, 0452065 ####[facility] [address] [place] [address] Eosinophils/100 WBC (Bld) 4.2 % Normal 0.0-8.0 [facility] Comment on above: Order Comment: Order Added by Discern Expert. Performed By: #### 1 0534919, 5156818, 5944875, 4907781 ####[place] [address] [place] [address] Eosinophils/Leukocytes Auto (Bld) [Pure # fraction] 0.6 E9/L High 0.0-0.5 [facility] Comment on above: Order Comment: Order Added by Bethany Expert. Performed By: #### 1 1949941, 8577694, 9991115, 9088802 ####[address] [address] Lymphocytes/100 WBC (Bld) 7.3 % Low 14.0-50.0 [facility] Comment on above: Order Comment: Order Added by Bethany Expert. Performed By: #### 1 8271116, 4756266, 5822485, 8406594 ####[address] [address] Lymphocytes/Leukocytes Auto (Bld) [Pure # fraction] 1.0 E9/L Normal 1.0-4.0 [facility] Comment on above: Order Comment: Order Added by Bethany Expert. Performed By: #### 1 5638714, 0781379, 8932823, 7790680 ####[address] [address] Monocytes/100 WBC (Bld) 6.5 % Normal 4.0-14.0 [facility] Comment on above: Order Comment: Order Added by Bethany Expert. Performed By: #### 1 5060209, 2699083, 0816078, 8854391 ####[place] [address] [place] [address] Monocytes/Leukocytes Auto (Bld) [Pure # fraction] 0.9 E9/L Normal 0.2-1.0 [facility] Comment on above: Order Comment: Order Added by Bethany Expert. Performed By: #### 1 9782514, 3317728, 6289792, 9225063 ####[address] [address] Neutrophils/100 WBC (Bld) 81.6 % High 36.0-75.0 [facility] Comment on above: Order Comment: Order Added by Discern Expert. Performed By: #### 1 8816411, 8844575, 7312728, 2268871 ####[facility] [address] [place] [address] Neutrophils/Leukocytes Auto (Bld) [Pure # fraction] 10.7 E9/L High 2.0-7.5 [facility] Comment on above: Order Comment: Order Added by Discern Expert. Performed By: #### 1 6157815, 7139875, 9505721, 8028026 ####[facility] [address] [place] [address] BMPon 12-19-2022 Anion gap [Moles/Vol] 11 mmol/L Normal 6-16 [facility] Comment on above: Performed By: #### 1 5359549, 6736998, 1041269, 1108121 ####[facility] [address] [place] [address] Calcium [Mass/Vol] 8.5 mg/dL Low 8.9-11.1 [facility] Comment on above: Performed By: #### 1 7484696, 3270983, 8844438, 6498914 ####[facility] [address] [place] [address] Chloride [Moles/Vol] 103 mmol/L Normal 101-111 [facility] Comment on above: Performed By: #### 1 4878473, 2631900, 1546567, 8948142 ####[facility] [address] [place] [address] CO2 [Moles/Vol] 28 mmol/L Normal 21-31 [facility] Comment on above: Performed By: #### 1 3824746, 2027692, 0410318, 4392527 ####[facility] [address] [place] [address] Creatinine [Mass/Vol] 1.2 mg/dL Normal 0.5-1.3 [facility] Comment on above: Performed By: #### 1 0729063, 5823006, 1694698, 1277537 ####[facility] [address] [place] [address] Glucose [Mass/Vol] 86 mg/dL Normal 55-199 [facility] Comment on above: Result Comment: If t his glucose result represents a fasting glucose, interpretation should refer to the following reference range: 55-99 mg/dL Performed By: #### 1 9750017, 0281349, 3776582, 0738364 ####[facility] [address] [place] [address] Potassium [Moles/Vol] 4.5 mmol/L Normal 3.5-5.3 [facility] Comment on above: Performed By: #### 1 3937631, 4612845, 8941943, 7455279 ####[facility] [address] [place] [address] Sodium [Moles/Vol] 137 mmol/L Normal 135-145 [facility] Comment on above: Performed By: #### 1 1314496, 3753344, 4957610, 3278224 ####[facility] [address] [place] [address] Urea nitrogen [Mass/Vol] 35 mg/dL High 5-21 [facility] Comment on above: Performed By: #### 1 8530505, 4438069, 6499807, 1684385 ####[facility] [address] [place] [address] Urea nitrogen/Creatinine [Mass ratio] 29 No Units High 10-20 [facility] Comment on above: Performed By: #### 1 6205690, 3250053, 5758713, 8553715 ####[facility] [address] [place] [address] CBC w/ Auto Diffon 3 Erythrocyte distribution width (RBC) [Ratio] 15.0 % High 10.9-14.2 [facility] Comment on above: Performed By: #### 1 0780880, 5326224, 0292120, 2466152 ####[facility] [address] [place] 9679657 Hematocrit (Bld) [Volume fraction] 38.4 % Normal 37.7-49.0 [facility] Comment on above: Performed By: #### 1 2089360, 5267375, 7695100, 6993516 ####[address] [address] Hemoglobin (Bld) [Mass/Vol] 12.7 g/dL Low 13.5-17.5 [facility] Comment on above: Performed By: #### 1 7998441, 3346290, 6068487, 8002578 ####[place] [address]357 MCH (RBC) [Entitic mass] 27.9 pg Normal 27.0-34.0 [facility] Comment on above: Performed By: #### 1 7888571, 7863208, 5384080, 0823127 ####[place] [address]357 MCHC (RBC) [Mass/Vol] 32.9 g/dL Normal 31.4-36.0 [facility] Comment on above: Performed By: #### 1 2640297, 9000457, 8186373, 6383489 ####[address] [address] MCV (RBC) [Entitic vol] 84.8 fL Normal 80.0-100.0 [facility] Comment on above: Performed By: #### 1 0342502, 8827787, 9396360, 9628446 ####[address] [address] Platelet mean volume (Bld) [Entitic vol] 9.5 fL Normal 6.4-10.8 [facility] Comment on above: Performed By: #### 1 0697231, 6635236, 3543548, 6835609 ####[address] [address] Platelets (Bld) [#/Vol] 230.0 E9/L Normal 150.0-500.0 [facility] Comment on above: Performed By: #### 1 2410580, 5497530, 1032894, 0490725 ####[facility] [address] [place] [address] RBC (Bld) [#/Vol] 4.5 E12/L Normal 4.3-5.9 [facility] Comment on above: Performed By: #### 1 5221023, 5510068, 3379833, 9721941 ####[facility] [address] [place] [address] WBC corrected for nucl RBC Auto (Bld) [#/Vol] 13.1 E9/L High 4.0-11.0 [facility] Comment on above: Performed By: #### 1 0660077, 3776712, 9823637, 9061338 ####[facility] [address] [place] [address] CHEMISTRYOrdered By: Lab ROP User on 12-19-2022 Glucose [Mass/Vol] 210 mg/dL High 55 - 99 mg/dL [facility] POC Subsection Comment on above: Result Comment: Gareth guerrero RN/ POC Device SN [id number] Invalid Interpretation Code [facility] POC Subsection POC User ID [id number] Invalid Interpretation Code [facility] POC Subsection POC Username SHER GAVIRIA Invalid Interpretation Code [facility] POC Subsection Glucose [Mass/Vol] 111 mg/dL High 55 - 99 mg/dL [facility] POC Subsection Comment on above: Result Comment: Gareth guerrero RN/ POC Device SN [id number] Invalid Interpretation Code [facility] POC Subsection POC User ID [id number] Invalid Interpretation Code [facility] POC Subsection POC Username KELLEN HERNANDEZ Invalid Interpretation Code [facility] POC Subsection CHEMISTRYOrdered By: SYSTEM SYSTEM on 12-19-2022 Anion gap [Moles/Vol] 11 mmol/L Normal 6 - 16 mEq/L [facility] Remisol Calcium [Mass/Vol] 8.5 mg/dL Low 8.9 - 11. 1 mg/dL [facility] Chloride [Moles/Vol] 103 mmol/L Normal 101 - 1 11 mmol/L [facility] CO2 [Moles/Vol] 28 mmol/L Normal 21 - 31 mmol/L [facility] Remisol Creatinine [Mass/Vol] 1.2 mg/dL Normal 0.5 - 1.3 mg/dL [facility] Remisol GFR/1.73 sq M.predicted among non-blacks MDRD (S/P/Bld) [Vol rate/Area] 62 mL/min/1.73 m2 Normal >=59mL/min/ 1.73 m2 [facility] Chem S Glucose [Mass/Vol] 86 mg/dL Normal 55 - 199 mg/dL [facility] Remisol Potassium [Moles/Vol] 4.5 mmol/L Normal 3.5 - 5.3 mmol/L [facility] Remisol Sodium [Moles/Vol] 137 mmol/L Normal 135 - 145 mmol/L [facility] Remisol Urea nitrogen [Mass/Vol] 35 mg/dL High 5 - 21 mg/dL [facility] Remisol Urea nitrogen/Creatinine [Mass ratio] 29 mg/mg High 10 - 20 [facility] Remisol Capillary Glucose POCon 11-22 Glucose [Mass/Vol] 210 mg/dL High 55-99 [facility] Comment on above: Result Comment: Gareth GARDINER Performed By: #### 2 [id number] ####[facility] [address] [place] [address] Glucose [Mass/Vol] 111 mg/dL High 55- [facility] Comment on above: Result Comment: Gareth GARDINER Performed By: #### 2 36231164 ####[facility] [address] [place] [address] Glucose [Mass/Vol] 201 mg/dL High 55- [facility] Comment on above: Result Comment: Gareth GARDINER Performed By: #### 2 65032664 ####[facility] [address] [place] [address] Glucose [Mass/Vol] 93 mg/dL Normal 55-99 [facility] Comment on above: Result Comment: Gareth GARDINER Performed By: #### 2 43628036 ####[facility] [address] [place] [address] HEMATOLOGYOrdered By: SYSTEM SYSTEM on 12-19-2022 Basophils/100 [...] 9.5 fL Normal 6.4 - 10.8 fL [facility] HemeAutoSS Platelets (Bld) [#/Vol] 230.0 E9/L Normal 150. 0 - 500.0 E9/L [facility] HemeAutoSS RBC (Bld) [#/Vol] 4.5 E12/L Normal 4.3 - 5.9 E12/L [facility] HemeAutoSS WBC corrected for nucl RBC Auto (Bld) [#/Vol] 13.1 E9/L High 4.0 - 11.0 E9/L [facility] HemeAutoSS Monitor Recordon 12-19-2022 Monitor Record [id number]# 1.00CD:127 Normal [facility] Monitor Record [id number]# 1.00CD:127 Normal [facility] Progress Note-Physicianon Progress Note-Physician Normal [facility] Comment on above: Result Comment: Elec tronically Signed By: MICHAEL POTTS, Jamir\.br\Date and Time Signed: 12/19/22 09:47 EDT eGFRon 12-19-2022 GFR/1.73 sq M.predicted among non-blacks MDRD (S/P/Bld) [Vol rate/Area] 62 mL/min/1.73 m2 Normal >=59 [facility] Comment on above: Order Comment: Order added by Discern Expert. Result Comment: Manager Recovery earnest kidney disease could be indicated at eGFR's of less than 60 mL/min/1.73m2. Kidney failure is indicated at less than 15 mL/min/1.73m2. Performed By: #### 1 3277294, 5820996, 5037881, 9189927 ####[facility] [address] [place] [address] Auto Diffon 12-18-2022 Basophils/100 WBC (Bld) 0.4 % Normal 0.0-2.0 [facility] Comment on above: Order Comment: Order Added by Discern Expert. Performed By: #### 2 346183, 8033541 ####[facility] [address] [place] [address] Basophils/Leukocytes Auto (Bld) [Pure # fraction] 0.1 E9/L Normal 0.0-0.2 [facility] Comment on above: Order Comment: Order Added by Discern Expert. Performed By: #### 2 888578, 1212600 ####[facility] [address] [place] [address] Eosinophils/100 WBC (Bld) 2.8 % Normal 0.0-8.0 [facility] Comment on above: Order Comment: Order Added by Discern Expert. Performed By: #### 2 783594, 0809806 ####[facility] [address] [place] [address] Eosinophils/Leukocytes Auto (Bld) [Pure # fraction] 0.4 E9/L Normal 0.0-0.5 [facility] Comment on above: Order Comment: Order Added by Discern Expert. Performed By: #### 2 831441, 4090872 ####[address] [place] [address] Lymphocytes/100 WBC (Bld) 9.0 % Low 14.0-50.0 [facility] Comment on above: Order Comment: Order Added by Discern Expert. Performed By: #### 2 708633, 4458044 ####[address] [address] Lymphocytes/Leukocytes Auto (Bld) [Pure # fraction] 1.3 E9/L Normal 1.0-4.0 [facility] Comment on above: Order Comment: Order Added by Discern Expert. Performed By: #### 2 526428, 6822534 ####[facility] [address] [place] [address] Monocytes/100 WBC (Bld) 8.3 % Normal 4.0-14.0 [facility] Comment on above: Order Comment: Order Added by Discern Expert. Performed By: #### 2 930436, 6931636 ####[facility] [address] [place] [address] Monocytes/Leukocytes Auto (Bld) [Pure # fraction] 1.3 E9/L High 0.2-1.0 [facility] Comment on above: Order Comment: Order Added by Discern Expert. Performed By: #### 2 793257, 4192148 ####[place] [address] [place] [address] Neutrophils/100 WBC (Bld) 79.5 % High 36.0-75.0 [facility] Comment on above: Order Comment: Order Added by Discern Expert. Performed By: #### 2 629438, 8829074 ####[address] [address] Neutrophils/Leukocytes Auto (Bld) [Pure # fraction] 11.9 E9/L High 2.0-7.5 [facility] Comment on above: Order Comment: Order Added by Bethany Expert. Performed By: #### 2 401536, 6656539 ####[address] [address] Basophils/100 WBC (Bld) 0.6 % Normal 0.0-2.0 [facility] Comment on above: Order Comment: Order Added by Bethany Expert. Performed By: #### 1 1887676, 7114538, 67145209, 2318907, 57845591, 41624538, 2096376 ####[address] [address] Basophils/Leukocytes Auto (Bld) [Pure # fraction] 0.1 E9/L Normal 0.0-0.2 [facility] Comment on above: Order Comment: Order Added by Bethany Expert. Performed By: #### 1 1477901, 1217125, 85932692, 3948005, 22937687, 00384057, 7584165 ####[address] [address] Eosinophils/100 WBC (Bld) 2.0 % Normal 0.0-8.0 [facility] Comment on above: Order Comment: Order Added by Bethany Expert. Performed By: #### 1 2997118, 8073698, 67421283, 2616659, 79152499, 59252896, 5973207 ####[place] [address] [place] [address] Eosinophils/Leukocytes Auto (Bld) [Pure # fraction] 0.3 E9/L Normal 0.0-0.5 [facility] Comment on above: Order Comment: Order Added by Discern Expert. Performed By: #### 1 4371432, 2155723, 67582120, 2595990, 49049226, 67332707, 5406401 ####[place] [place] [address] Lymphocytes/100 WBC (Bld) 7.6 % Low 14.0-50.0 [facility] Comment on above: Order Comment: Order Added by Discern Expert. Performed By: #### 1 8512944, 6716932, 44038727, 1349816, 51938277, 15196951, 0297752 ####[address] [address] Lymphocytes/Leukocytes Auto (Bld) [Pure # fraction] 1.3 E9/L Normal 1.0-4.0 [facility] Comment on above: Order Comment: Order Added by Discern Expert. Performed By: #### 1 7352503, 4784667, 76740825, 5889771, 81003661, 82298987, 9355982 ####[address] [address] Monocytes/100 WBC (Bld) 7.8 % Normal 4.0-14.0 [facility] Comment on above: Order Comment: Order Added by Discern Expert. Performed By: #### 1 6509425, 6900554, 65206811, 0659029, 42978719, 79566962, 0349642 ####[place] [place] [address] Monocytes/Leukocytes Auto (Bld) [Pure # fraction] 1.3 E9/L High 0.2-1.0 [facility] Comment on above: Order Comment: Order Added by Discern Expert. Performed By: #### 1 2001788, 1954682, 81755829, 4189353, 65046108, 45423950, 4180777 ####[facility] [address] [place] [address] Neutrophils/100 WBC (Bld) 82.0 % High 36.0-75.0 [facility] Comment on above: Order Comment: Order Added by Discern Expert. Performed By: #### 1 1627446, 1350456, 03874613, 6674489, 25229600, 68291335, 2009335 ####[facility] [address] [place] [address] Neutrophils/Leukocytes Auto (Bld) [Pure # fraction] 13.7 E9/L High 2.0-7.5 [facility] Comment on above: Order Comment: Order Added by Discern Expert. Performed By: #### 1 7460455, 9142704, 54021930, 1007334, 30091347, 12977264, 6259640 ####[facility] [address] [place] [address] BMPon 12-18-2022 Creatinine [Mass/Vol] 1.6 mg/dL High 0.5-1.3 [facility] Comment on above: Performed By: #### 2 779212, 2175596, 3056024493, 21005221, 80244484 ####[facility] [address] [place] [address] Urea nitrogen [Mass/Vol] 47 mg/dL High 5-21 [facility] Comment on above: Performed By: #### 2 245404, 7069077, 1437792874, 32729606, 47072841 ####[facility] [address] [place] [address] Urea nitrogen/Creatinine [Mass ratio] 29 No Units High 10-20 [facility] Comment on above: Performed By: #### 2 353405, 2989264, 6176131800, 01144119, 31420122 ####[facility] [address] [place] [address] Anion gap [Moles/Vol] 12 mmol/L Normal 6-16 [facility] Comment on above: Performed By: #### 2 964297, 3623560, 1262012425, 21972000, 58945522 ####[facility] [address] [place] [address] Calcium [Mass/Vol] 8.7 mg/dL Low 8.9-11.1 [facility] Comment on above: Performed By: #### 2 939285, 0808720, 8306436201, 94395537, 82971274 ####[facility] [address] [place] [address] Chloride [Moles/Vol] 97 mmol/L Low 101-111 [facility] Comment on above: Performed By: #### 2 105750, 9227911, 2452603291, 39944975, 56621606 ####[facility] [address] [address] CO2 [Moles/Vol] 32 mmol/L High 21-31 [facility] Comment on above: Performed By: #### 2 080452, 5799326, 1057757113, 44369806, 09608264 ####[facility] [address] [place] [address] Glucose [Mass/Vol] 131 mg/dL Normal 55-199 [facility] Comment on above: Result Comment: If t his glucose result represents a fasting glucose, interpretation should refer to the following reference range: 55-99 mg/dL Performed By: #### 2 661817, 1479174, [id number], 13706560, 06954978 ####[facility] [address] [place] [address] Potassium [Moles/Vol] 3.7 mmol/L Normal 3.5-5.3 [facility] Comment on above: Performed By: #### 2 416855, 8826946, [id number], 25847728, 45525253 ####[facility] [address] [place] [address] Sodium [Moles/Vol] 137 mmol/L Normal 135-145 [facility] Comment on above: Performed By: #### 2 538736, 3009883, [id number], 06431860, 76717369 ####[facility] [address] [place] [address] Creatinine [Mass/Vol] 1.8 mg/dL High 0.5-1.3 [facility] Comment on above: Performed By: #### 1 8125125, 6484374, 72956770, 8386158, 04536858, 86999408, 0455984 ####[facility] [address] [place] [address] Urea nitrogen [Mass/Vol] 49 mg/dL High 5-21 [facility] Comment on above: Performed By: #### 1 8547297, 5581577, 35091554, 1689253, 67659785, 15469580, 1140069 ####[facility] [address] [place] [address] Urea nitrogen/Creatinine [Mass ratio] 27 No Units High 10-20 [facility] Comment on above: Performed By: #### 1 9646669, 8544229, 77200117, 3741262, 49735865, 73409871, 2669583 ####[facility] [address] [place] [address] Anion gap [Moles/Vol] 18 mmol/L High 6-16 [facility] Comment on above: Performed By: #### 1 2972190, 8448909, 25915261, 9307181, 18714916, 16940838, 4147010 ####[facility] [address] [place] [address] Calcium [Mass/Vol] 9.3 mg/dL Normal 8.9-11.1 [facility] Comment on above: Performed By: #### 1 1108748, 8787864, 92280879, 6528477, 83433171, 12669499, 9835939 ####[facility] [address] [place] [address] Chloride [Moles/Vol] 93 mmol/L Low 101-111 [facility] Comment on above: Performed By: #### 1 2890454, 3191340, 96846127, 0134616, 72882620, 26722745, 4970314 ####[facility] [address] [place] [address] CO2 [Moles/Vol] 29 mmol/L Normal 21-31 [facility] Comment on above: Performed By: #### 1 3038247, 9653331, 21403129, 9626005, 69987002, 86902725, 4879494 ####[facility] [address] [place] [address] Glucose [Mass/Vol] 137 mg/dL Normal 55-199 [facility] Comment on above: Result Comment: If t his glucose result represents a fasting glucose, interpretation should refer to the following reference range: 55-99 mg/dL Performed By: #### 1 6162864, 8213294, 31292600, 1905572, 13602835, 04756246, 6317951 ####[facility] [address] [place] [address] Potassium [Moles/Vol] 4.0 mmol/L Normal 3.5-5.3 [facility] Comment on above: Performed By: #### 1 8557127, 9448812, 43989890, 2945767, 90317084, 85869064, 4127204 ####[facility] [address] [place] [address] Sodium [Moles/Vol] 136 mmol/L Normal 135-145 [facility] Comment on above: Performed By: #### 1 6456034, 2053896, 84219449, 5875686, 66433405, 63913613, 5147031 ####[facility] [address] [place] [address] BNPon 12-18-2022 Int Ctr BNP Pass Normal [facility] Comment on above: Performed By: #### 1 3131872, 8275013, 27277831, 8194372, 91242968, 13408881, 0585448 ####[address] [place] [address] Natriuretic peptide B (Bld) [Mass/Vol] 219 pg/mL High 5-80 [facility] Comment on above: Performed By: #### 1 7415716, 4487415, 08241850, 0101336, 13028827, 84572354, 4863814 ####[address] [address] CBC w/ Auto Diffon Erythrocyte distribution width (RBC) [Ratio] 14.8 % High 10.9-14.2 [facility] Comment on above: Performed By: #### 2 460757, 9419106 ####[place] [address] Hematocrit (Bld) [Volume fraction] 37.8 % Normal 37.7-49.0 [facility] Comment on above: Performed By: #### 2 772017, 3210075 ####[place] [address] Hemoglobin (Bld) [Mass/Vol] 12.7 g/dL Low 13.5-17.5 [facility] Comment on above: Performed By: #### 2 109797, 4539751 ####[address] [address] MCH (RBC) [Entitic mass] 28.3 pg Normal 27.0-34.0 [facility] Comment on above: Performed By: #### 2 535121, 8706520 ####[address] [address] MCHC (RBC) [Mass/Vol] 33.6 g/dL Normal 31.4-36.0 [facility] Comment on above: Performed By: #### 2 151091, 9361523 ####[address] [address] MCV (RBC) [Entitic vol] 84.2 fL Normal 80.0-100.0 [facility] Comment on above: Performed By: #### 2 639115, 1630766 ####[address] [address] Platelet mean volume (Bld) [Entitic vol] 9.2 fL Normal 6.4-10.8 [facility] Comment on above: Performed By: #### 2 369864, 0223066 ####[address] [address] Platelets (Bld) [#/Vol] 219.0 E9/L Normal 150.0-500.0 [facility] Comment on above: Performed By: #### 2 326960, 7617178 ####[place] [address] RBC (Bld) [#/Vol] 4.5 E12/L Normal 4.3-5.9 [facility] Comment on above: Performed By: #### 2 367264, 2352604 ####[place] [address] WBC corrected for nucl RBC Auto (Bld) [#/Vol] 15.0 E9/L High 4.0-11.0 [facility] Comment on above: Performed By: #### 2 394638, 3283342 ####[place] [address] Erythrocyte distribution width (RBC) [Ratio] 14.9 % High 10.9-14.2 [facility] Comment on above: Performed By: #### 1 1553326, 8541510, 39181119, 7554282, 59374532, 12379887, 1171814 ####[address] [address] Hematocrit (Bld) [Volume fraction] 42.8 % Normal 37.7-49.0 [facility] Comment on above: Performed By: #### 1 5840364, 5974254, 36859841, 5590331, 10558899, 36678524, 6272428 ####[facility] [address] [place] [address] Hemoglobin (Bld) [Mass/Vol] 14.3 g/dL Normal 13.5-17.5 [facility] Comment on above: Performed By: #### 1 7856952, 7285563, 45425612, 7656221, 64265526, 00181959, 1811060 ####[facility] [address] [place] [address] MCH (RBC) [Entitic mass] 28.1 pg Normal 27.0-34.0 [facility] Comment on above: Performed By: #### 1 6861332, 1544918, 94594135, 7207471, 05787679, 53915398, 6787723 ####[place] [address] MCHC (RBC) [Mass/Vol] 33.3 g/dL Normal 31.4-36.0 [facility] Comment on above: Performed By: #### 1 2942638, 6396355, 98877414, 7926140, 06375040, 66318391, 3494402 ####[address] [address] MCV (RBC) [Entitic vol] 84.3 fL Normal 80.0-100.0 [facility] Comment on above: Performed By: #### 1 2928847, 4485729, 76169316, 6011360, 02478960, 59040895, 3246577 ####[address] [place] [address] Platelet mean volume (Bld) [Entitic vol] 9.8 fL Normal 6.4-10.8 [facility] Comment on above: Performed By: #### 1 9760679, 8213089, 39012795, 0941694, 58099467, 37516141, 6755487 ####[address] [place] [address] Platelets (Bld) [#/Vol] 234.0 E9/L Normal 150.0-500.0 [facility] Comment on above: Performed By: #### 1 6848715, 1910380, 61846142, 9366296, 93086230, 22727715, 9855387 ####[facility] [address] [place] [address] RBC (Bld) [#/Vol] 5.1 E12/L Normal 4.3-5.9 [facility] Comment on above: Performed By: #### 1 0980024, 9657162, 19258516, 8740655, 33426237, 68867902, 0811561 ####[facility] [address] [place] [address] WBC corrected for nucl RBC Auto (Bld) [#/Vol] 16.7 E9/L High 4.0-11.0 [facility] Comment on above: Result Comment: Slid e reviewed by JENNIFER. Performed By: #### 1 7071924, 7081322, 86131850, 5779193, 58981105, 08343794, 6676616 ####[facility] [address] [place] [address] CHEMISTRYOrdered By: SYSTEM SYSTEM on 12-18-2022 Troponin [...] 44 mL/min/1.73 m2 Low >=59mL/min/ 1.73 m2 [facility] Chem S Glucose [Mass/Vol] 131 mg/dL Normal 55 - 199 mg/dL [facility] Potassium [Moles/Vol] 3.7 mmol/L Normal 3.5 - 5.3 mmol/L [facility] Procalcitonin 0.09 ng/mL Normal 0.00 - 0.50 ng/mL [facility] Remisol Sodium [Moles/Vol] 137 mmol/L Normal 135 - 145 mmol/L [facility] Remisol Troponin I.cardiac [Mass/Vol] 22.50 pg/mL Normal 15.90 - 38.40 pg/mL [facility] Remisol Urea nitrogen [Mass/Vol] 47 mg/dL High 5 - 21 mg/dL [facility] Remisol Urea nitrogen/Creatinine [Mass ratio] 29 mg/mg High 10 - 20 [facility] Remisol CHEMISTRYOrdered By: Yanet Apodaca on 12-18-2022 Troponin I.cardiac [Mass/Vol] 18.80 pg/mL Normal 15.90 - 38.40 pg/mL [facility] Remisol Natriuretic peptide B (Bld) [Mass/Vol] 219 pg/mL High 5 - 80 pg/mL [facility] HemeManSS CKon 12-18-2022 CK [Catalytic activity/Vol] 55 Int._Unit/L Normal 14-261 [facility] Comment on above: Performed By: #### 2 308697, 3336305, 0030118376, 45640101, 46172505 ####[facility] [address] [place] [address] COAGULATIONOrdered By: Rachael Apodaca on 12-18-2022 aPTT Coag (PPP) [Time] 30.6 s Normal 25.1 - 36.5 second(s) [facility] Auto Coag INR Coag (PPP) [Relative time] 1.1 {INR} Invalid Interpretation Code FT Auto Coag PT Coag (PPP) [Time] 12.5 s Normal 9.4 - 1 2.5 second(s) FT Auto Coag CT Head or Brain w/o Contras ton 12-18-2022 CT Head or Brain w/o Contrast Normal [facility] CT Spine Cervical w/o Contra ston 12-18-2022 CT Spine Cervical w/o Contrast Normal [facility] Capillary Glucose POCon 11-22 Glucose [Mass/Vol] 212 mg/dL High 55-99 [facility] Comment on above: Result Comment: Gareth GARDINER Performed By: #### 2 09691781 ####[facility] [address] [place] [address] Glucose [Mass/Vol] 97 mg/dL Normal 55-99 [facility] Comment on above: Result Comment: Yazmin bri Meter Performed By: #### 2 30570897 ####[facility] [address] [place] [address] Glucose [Mass/Vol] 119 mg/dL High 55-99 [facility] Comment on above: Result Comment: Gareth GARDINER Performed By: #### 2 66624618 ####[facility] [address] [place] [address] Glucose [Mass/Vol] 131 mg/dL High 55-99 [facility] Comment on above: Result Comment: Gareth GARDINER Performed By: #### 2 17831996 ####[facility] [address] [place] [address] Consent for Treatmenton 11-22 Consent for Treatment [id number]# 1.00CD:127 Normal [facility] ED Clinical Summaryon 2022 ED Clinical Summary Normal [facility] ED Note-Physicianon 12-19-19 23 ED Note-Physician Normal [facility] Comment on above: Result Comment: Elec tronically Signed By: Guilherme POTTS, Malcom\.br\Date and Time Signed: 12/18/22 04:33 EDT ED Patient Education Noteon 12-18-2022 ED Patient Education Note Normal [facility] ED Patient Summaryon 023 ED Patient Summary Normal [facility] ED Traumaon 12-18-2022 ED Trauma [id number]# 1.00CD:127 Normal [facility] HEMATOLOGYOrdered By: SYSTEM SYSTEM on 12-18-2022 [...] 33.6 g/dL Normal 31.4 - 36.0 gm/dL [facility] HemeAutoSS MCV (RBC) [Entitic vol] 84.2 fL Normal 80.0 - 100.0 fL FT HemeAutoSS Platelet mean volume (Bld) [Entitic vol] 9.2 fL Normal 6.4 - 10.8 fL [facility] HemeAutoSS Platelets (Bld) [#/Vol] 219.0 E9/L Normal 150. 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 informed staff in [facility] to send current medication list in fax.3N Normal [facility] Interdisciplinary Note - PTo n 12-18-2022 Interdisciplinary Note - PT Normal [facility] Laboratory - Microbiology an d Antimicrobial susceptibilityOrdered By: Karen Vergara on 12-18-2022 Bacteria identified Cx Nom (U) 10,000 cfu/ml Staphylococcus species Continuing incubation [facility] Monitor Recordon 12-18-2022 Monitor Record [id number]# 1.00CD:127 Normal [facility] No Panel InformationOrdered By: Karen Vergara on 12-18-2022 Blood Culture Charcoal Streptococcus spe cies Staphylococcus species coagulase negative In 1 of 2 blood culture bottles drawn. Isolated from aerobic bottle Preliminary gram stain results of gram positive cocci in clusters Result called to Dr. Mckinney by and results read back for confirmation on 12/19/2022 09:39:39 [facility] No Panel InformationOrdered By: [facility] 12-18-2022 Blood Culture Charcoal No growth at 2 da ys. Final to follow at 7 days. [facility] PT & PTTon 12-18-2022 aPTT Coag (PPP) [Time] 30.6 second(s) Normal 25.1-36.5 [facility] Comment on above: Result Comment: Para [...] the same coagulation reagent and instrumentation as [facility]. Currently there are no coagulation studies available worldwide for children to 14 days, and no normal ranges. Heparin therapeutic range (represented by Anti-Factor Xa activity of 0.2 - 0.4 U/mL) corresponds to PTT of 56.6 - 109.0 sec. Performed By: #### 1 2386492, 7126551, 56215881, 2629210, 42821706, 66259211, 2540495 ####[facility] [address] [place] [address] INR Coag (PPP) [Relative time] 1.1 {INR} Invalid Interpretation Code [facility] Comment on above: Result Comment: INR results are specifically intended to assess patients stabilized on long-term Anticoagulation therapy suggested INR?s ?Less Intensive Anticoagulation? 2.0 ? 3.0Conventional Range 3.0 ? 4.5 Performed By: #### 1 7224616, 9384598, 75524065, 7878483, 33216073, 91532793, 4959066 ####[facility] [address] [place] [address] PT Coag (PPP) [Time] 12.5 second(s) Normal 9.4-12.5 [facility] Comment on above: Result Comment: 15 [...] the same coagulation reagent and instrumentation as [facility]. Currently there are no coagulation studies available worldwide for children to 14 days, and no normal ranges. Performed By: #### 1 6848781, 6743581, 49428086, 7137931, 97505891, 86473030, 5836932 ####[facility] [address] [place] [address] Procalcitoninon 12-18-2022 Procalcitonin .09 ng/mL Normal .00-.50 [facility] Comment on above: Result Comment: <0.5 [...] to 24 hours. Performed By: #### 2 999248, 0746848, 3629002453, 74840797, 50436574 ####[facility] [address] [place] [id number] RAD - Preliminary Cat Scan R eporton 12-18-2022 RAD - Preliminary Cat Scan Report [id number]# 1.00CD:127 Normal [facility] Troponin 0 Hr.on 12-18-2022 Troponin I.cardiac [Mass/Vol] 23.50 pg/mL Normal 15.90-38.40 [facility] Comment on above: Result Comment: The 95% CI (Confidence Interval) PPV (Positive Predictive Value) for myocardial infarction in females is 38 pg/mL, in males 51 pg/mL. The results should be used in conjunction with clinical conditions of myocardial infarction.(Tier 3 High Sensitivity Troponin I Instructions For Use, [employer], December 2017) Performed By: #### 1 3821233, 4784435, 86306146, 9891672, 28396406, 06117850, 4956391 ####[facility] [address] [place] [address] Troponin 3 Hr.on 12-18-2022 Troponin I.cardiac [Mass/Vol] 18.80 pg/mL Normal 15.90-38.40 [facility] Comment on above: Result Comment: The 95% CI (Confidence Interval) PPV (Positive Predictive Value) for myocardial infarction in females is 38 pg/mL, in males 51 pg/mL. The results should be used in conjunction with clinical conditions of myocardial infarction.(Tier 3 High Sensitivity Troponin I Instructions For Use, [employer], December 2017) Performed By: #### 1 1014127 ####[facility] [address] [place] [address] Troponin 6 Hr.on 12-18-2022 Troponin I.cardiac [Mass/Vol] 22.50 pg/mL Normal 15.90-38.40 [facility] Comment on above: Result Comment: The 95% CI (Confidence Interval) PPV (Positive Predictive Value) for myocardial infarction in females is 38 pg/mL, in males 51 pg/mL. The results should be used in conjunction with clinical conditions of myocardial infarction.(Access High Sensitivity Troponin I Instructions For Use, [employer], December 2017) Performed By: #### 2 242779, 5902508, 7225143157, 10692374, 98230206 ####[facility] [address] [place] [address] Troponin 9 Hr.on 12-18-2022 Troponin I.cardiac [Mass/Vol] 18.90 pg/mL Normal 15.90-38.40 [facility] Comment on above: Result Comment: The 95% CI (Confidence Interval) PPV (Positive Predictive Value) for myocardial infarction in females is 38 pg/mL, in males 51 pg/mL. The results should be used in conjunction with clinical conditions of myocardial infarction.(Access High Sensitivity Troponin I Instructions For Use, [place], December 2017) Performed By: #### 1 5075682 ####[address] [address] UA With Cult Reflexon 2022 Bacteria LM Ql (Urine sed) TRACE Normal Trace [facility] Comment on above: Performed By: #### 1 8442444, 5524108 ####[address] [address] Bilirubin Ql (U) Negative Normal Negative [facility] Comment on above: Performed By: #### 1 5152500, 3415483 ####[address] [address] Clarity (U) CLEAR Normal Clear [facility] Comment on above: Performed By: #### 1 1304693, 0167899 ####[address] [address] Color (U) YELLOW Normal Yellow [facility] Comment on above: Performed By: #### 1 2859474, 4230698 ####[address] [address] Epithelial cells.squamous LM.HPF (Urine sed) [#/Area] 0-2 Normal 0-2 [facility] Comment on above: Performed By: #### 1 1924359, 1670504 ####[address] [address] Glucose Test strip (U) [Mass/Vol] Negative Normal Negative [facility] Comment on above: Performed By: #### 1 6439123, 3757379 ####[facility] [address] [place] [address] Hemoglobin Ql (U) TRACE Abnormal Negative [facility] Comment on above: Performed By: #### 1 2208755, 9340680 ####[facility] [address] [place] [address] Ketones (U) [Mass/Vol] Negative Normal Negative [facility] Comment on above: Performed By: #### 1 6067962, 0510670 ####[facility] [address] [place] [address] Fircrest.plasma/Fircrest.R BC (Bld) [Mass ratio] 0-3 Normal 0-3 [facility] Comment on above: Performed By: #### 1 7881402, 5113830 ####[facility] [address] [place] [address] Nitrite Ql (U) Negative Normal Negative [facility] Comment on above: Performed By: #### 1 7566252, 9888956 ####[facility] [address] [place] [address] pH (U) 6.5 [pH] Invalid Interpretation Code 5.0-9.0 [facility] Comment on above: Performed By: #### 1 6835021, 7707076 ####[facility] [address] [place] [address] Protein (U) [Mass/Vol] Negative Normal Negative [facility] Comment on above: Performed By: #### 1 6130149, 2016275 ####[facility] [address] [place] [address] Specific gravity (U) [Rel density] 1.020 Invalid Interpretation Code 1.005-1.030 [facility] Comment on above: Performed By: #### 1 0452174, 5995867 ####[facility] [address] [place] [address] Type of Urine collection method Clean Catch Normal [facility] Comment on above: Performed By: #### 1 9295205, 7156658 ####[facility] [address] [place] [address] Urobilinogen Qn (U) 0.2 {Lei'U}/dL Normal 0.0-1.0 [facility] Comment on above: Performed By: #### 1 7405293, 4110203 ####[facility] [address] [place] [address] WBC Auto Ql (U) 3+ Abnormal Negative [facility] Comment on above: Performed By: #### 1 2141471, 6395347 ####[facility] [address] [place] [address] WBC LM.HPF (Urine sed) [#/Area] /[HPF] Abnormal 0-5 [facility] Comment on above: Performed By: #### 1 5650071, 2486823 ####[facility] [address] [place] 9679657 URINALYSISOrdered By: Houston Castillo on 12-18-2022 Bacteria [...] PM) Normal Negative [facility] UA Auto SS Fircrest.plasma/Fircrest.R BC (Bld) [Mass ratio] 0-3 /HPF Normal 0-3/HPF [facility] UA Au to SS Nitrite Ql (U) Negative (12/18/22 4:45 PM) Normal Negative [facility] UA Auto SS pH (U) 6.5 *NA* (12/18/22 4:45 PM) Invalid Interpretation Code 5.0 - 9.0 FT UA Auto SS Protein (U) [Mass/Vol] Negative (12/18/22 4:45 PM) Normal Negative [facility] UA Auto SS Specific gravity (U) [Rel density] 1.020 *NA* (12/18/22 4:45 PM) Invalid Interpretation Code 1.005 - 1.030 [facility] UA Auto SS UA Spec Desc Clean Catch (12/18/22 4:45 PM) Normal [facility] UA Auto SS Urobilinogen Qn (U) 0.8050781 {Lei'U}/dL Normal 0.0 - 1.0 EU/dL [facility] UA Auto SS WBC Auto Ql (U) 3+ *ABN* (12/18/22 4:45 PM) Invalid Interpretation Code Negative [facility] UA Auto SS WBC LM.HPF (Urine sed) [#/Area] /[HPF] Invalid Interpretation Code 0-5/HPF [facility] UA Auto SS XR Chest Single Viewon 12-18 XR Chest Single View Normal [facility] XR Pelvis 1 or 2 Viewson XR Pelvis 1 or 2 Views Normal Fi [facility] eGFRon 12-18-2022 GFR/1.73 sq M.predicted among non-blacks MDRD (S/P/Bld) [Vol rate/Area] 44 mL/min/1.73 m2 Low >=59 [facility] Comment on above: Order Comment: Order added by Discern Expert. Result Comment: Manager Recovery earnest kidney disease could be indicated at eGFR's of less than 60 mL/min/1.73m2. Kidney failure is indicated at less than 15 mL/min/1.73m2. Performed By: #### 2 987631, 3676321, [id number], 81660318, 72450333 ####[facility] [address] [place] [address] GFR/1.73 sq M.predicted among non-blacks MDRD (S/P/Bld) [Vol rate/Area] 38 mL/min/1.73 m2 Low >=59 [facility] Comment on above: Order Comment: Order added by Discern Expert. Result Comment: Manager Recovery earnest kidney disease could be indicated at eGFR's of less than 60 mL/min/1.73m2. Kidney failure is indicated at less than 15 mL/min/1.73m2. Performed By: #### 1 5181539, 8538818, 89445218, 7796154, 98503184, 66537325, 4378235 ####[facility] [address] [place] [address] Capillary Glucose POCon 11-22 Glucose [Mass/Vol] 165 mg/dL High 55-99 [facility] Comment on above: Result Comment: Yazmin bri Meter Performed By: #### 2 [id number] ####[facility] [address] [place] [address] Glucose [Mass/Vol] 184 mg/dL High - [facility] Comment on above: Performed By: #### 2 [id number] ####[facility] [address] [place] [address] Capillary Glucose POCon 11-22 Glucose [Mass/Vol] 184 mg/dL High [address] Comment on above: Result Comment: Yazmin bri Meter Performed By: #### 2 [id number] ####[facility] [address] [place] [address] Glucose [Mass/Vol] 141 mg/dL High 55- [facility] Comment on above: Result Comment: Yazmin bri Meter Performed By: #### 2 [id number] ####[facility] [address] [place] [address] Capillary Glucose POCon 11-22 Glucose [Mass/Vol] 183 mg/dL High 55-[address] [place] [address] Comment on above: Result Comment: Yazmin bri Meter Performed By: #### 2 [id number] ####[facility] [address] [place] [address] Glucose [Mass/Vol] 147 mg/dL High 55 [facility] Comment on above: Result Comment: Yazmin bri Meter Performed By: #### 2 [id number] ####[facility] [address] [place] [address] Capillary Glucose POCon 11-22 Glucose [Mass/Vol] 188 mg/dL High 55-99 [facility] Comment on above: Result Comment: Yazmin bri Meter Performed By: #### 2 [id number] ####[facility] [address] [place] [address] Glucose [Mass/Vol] 162 mg/dL High 55-99 [facility] Comment on above: Result Comment: Yazmin bri Meter Performed By: #### 2 [id number] ####[facility] [address] [place] [address] Auto Diffon 12-13-2022 Basophils/100 WBC (Bld) 0.0 % Normal 0.0-2.0 [facility] Comment on above: Order Comment: Order Added by Discern Expert. Performed By: #### 1 5169506, 1310820, 369450056, 8884687, 8204493 ####[facility] [address] [place] [address] Basophils/Leukocytes Auto (Bld) [Pure # fraction] 0.0 E9/L Normal 0.0-0.2 [facility] Comment on above: Order Comment: Order Added by Discern Expert. Performed By: #### 1 6345512, 8507683, 367995297, 4390837, 3070200 ####[facility] [address] [place] [address] Eosinophils/100 WBC (Bld) 7.6 % Normal 0.0-8.0 [facility] Comment on above: Order Comment: Order Added by Discern Expert. Performed By: #### 1 7135349, 9977447, 119819938, 6812135, 5428738 ####[facility] [address] [place] [address] Eosinophils/Leukocytes Auto (Bld) [Pure # fraction] 1.0 E9/L High 0.0-0.5 [facility] Comment on above: Order Comment: Order Added by Bethany Expert. Performed By: #### 1 5875494, 0299776, 057036250, 0222561, 0279607 ####[address] [place] [address] Lymphocytes/100 WBC (Bld) 10.3 % Low 14.0-50.0 [facility] Comment on above: Order Comment: Order Added by Discern Expert. Performed By: #### 1 8885812, 1483164, 776573112, 8763371, 8503707 ####[address] [place] [address] Lymphocytes/Leukocytes Auto (Bld) [Pure # fraction] 1.3 E9/L Normal 1.0-4.0 [facility] Comment on above: Order Comment: Order Added by Bethany Expert. Performed By: #### 1 8944367, 0184164, 551548019, 0997945, 5658476 ####[address] [address] Monocytes/100 WBC (Bld) 9.6 % Normal 4.0-14.0 [facility] Comment on above: Order Comment: Order Added by Bethany Expert. Performed By: #### 1 8602097, 4704461, 310583180, 0251233, 6436571 ####[address] [address] Monocytes/Leukocytes Auto (Bld) [Pure # fraction] 1.2 E9/L High 0.2-1.0 [facility] Comment on above: Order Comment: Order Added by Bethany Expert. Performed By: #### 1 3588017, 4415257, 748139999, 1203188, 6523682 ####[address] [place] [address] Neutrophils/100 WBC (Bld) 72.5 % Normal 36.0-75.0 [facility] Comment on above: Order Comment: Order Added by Bethany Expert. Performed By: #### 1 8710074, 4816121, 264119755, 7960908, 4361854 ####[facility] [address] [place] [address] Neutrophils/Leukocytes Auto (Bld) [Pure # fraction] 9.0 E9/L High 2.0-7.5 [facility] Comment on above: Order Comment: Order Added by Discern Expert. Performed By: #### 1 5350767, 5969155, 984282991, 6972966, 0589164 ####[address] [place] [address] CBC w/ Auto Diffon 3 Erythrocyte distribution width (RBC) [Ratio] 15.0 % High 10.9-14.2 [facility] Comment on above: Performed By: #### 1 1833427, 0889283, 030632837, 8398157, 0615019 ####[address] [place] [address] Hematocrit (Bld) [Volume fraction] 45.2 % Normal 37.7-49.0 [facility] Comment on above: Performed By: #### 1 1114367, 9914770, 708509639, 6399866, 2239358 ####[address] [place] [address] Hemoglobin (Bld) [Mass/Vol] 14.8 g/dL Normal 13.5-17.5 [facility] Comment on above: Performed By: #### 1 5468473, 3562689, 480792671, 3122036, 1307539 ####[facility] [address] [place] [address] MCH (RBC) [Entitic mass] 27.8 pg Normal 27.0-34.0 [facility] Comment on above: Performed By: #### 1 1193582, 3696906, 009443833, 3575363, 6641486 ####[address] [place] [address] MCHC (RBC) [Mass/Vol] 32.7 g/dL Normal 31.4-36.0 [facility] Comment on above: Performed By: #### 1 4813760, 1331528, 865169644, 4080240, 3751379 ####[address] [place] [address] MCV (RBC) [Entitic vol] 85.0 fL Normal 80.0-100.0 [facility] Comment on above: Performed By: #### 1 7045362, 7921072, 672109038, 5331598, 3675300 ####[address] [place] [address] Platelet mean volume (Bld) [Entitic vol] 9.4 fL Normal 6.4-10.8 [facility] Comment on above: Performed By: #### 1 8956994, 5323017, 380047572, 7750429, 4308961 ####[address] [address] Platelets (Bld) [#/Vol] 193.0 E9/L Normal 150.0-500.0 [facility] Comment on above: Performed By: #### 1 9495363, 8802981, 012989304, 7231499, 6322752 ####[address] [address] RBC (Bld) [#/Vol] 5.3 E12/L Normal 4.3-5.9 [facility] Comment on above: Performed By: #### 1 1679550, 5538609, 521862010, 4171263, 9746003 ####[address] [place] [address] WBC corrected for nucl RBC Auto (Bld) [#/Vol] 12.5 E9/L High 4.0-11.0 [facility] Comment on above: Performed By: #### 1 2724017, 3350243, 434463919, 4536160, 3876748 ####[address] [place] [address] CMPon 12-13-2022 Albumin [Mass/Vol] 3.6 g/dL Normal 3.3-5.0 [facility] Comment on above: Performed By: #### 1 5576520, 2647046, 675194997, 1189551, 1025769 ####[facility] [address] [place] [address] Albumin/Globulin (S) [Mass conc ratio] 1.0 Low 1.1-2.2 [facility] Comment on above: Performed By: #### 1 2115004, 5385279, 672792116, 7657554, 4229531 ####[facility] [address] [place] [address] ALP [Catalytic activity/Vol] 49 Int._Unit/L Normal 21-98 [facility] Comment on above: Performed By: #### 1 6829116, 1027390, 314389945, 5219912, 6399279 ####[address] [place] [address] ALT No additional P-5'-P [Catalytic activity/Vol] 21 Int._Unit/L Normal 6-46 [facility] Comment on above: Performed By: #### 1 1183734, 1717435, 001595387, 2973361, 7045595 ####[facility] [address] [place] [address] Anion gap [Moles/Vol] 16 mmol/L Normal 6-16 [facility] Comment on above: Performed By: #### 1 8192286, 5602245, 206686329, 3741748, 8516431 ####[facility] [address] [place] [address] AST [Catalytic activity/Vol] 21 Int._Unit/L Normal 5-43 [facility] Comment on above: Performed By: #### 1 0267566, 8381614, 702476353, 9630870, 1924493 ####[facility] [address] [place] [address] Bilirubin [Mass/Vol] 0.6 mg/dL Normal 0.0-1.1 [facility] Comment on above: Performed By: #### 1 8430620, 7900979, 518579753, 0828910, 1434628 ####[facility] [address] [facility] [place] [address] Calcium [Mass/Vol] 9.4 mg/dL Normal 8.9-11.1 [facility] Comment on above: Performed By: #### 1 5090505, 2478319, 673617338, 0650762, 5349897 ####[facility] [address] [place] [address] Chloride [Moles/Vol] 99 mmol/L Low 101-111 [facility] Comment on above: Performed By: #### 1 1874794, 2227308, 416580218, 5852889, 3749840 ####[facility] [address] [place] [address] CO2 [Moles/Vol] 31 mmol/L Normal 21-31 [facility] Comment on above: Performed By: #### 1 9796047, 4245094, 767727253, 2355714, 8802016 ####[facility] [address] [place] [address] Creatinine [Mass/Vol] 1.5 mg/dL High 0.5-1.3 [facility] Comment on above: Performed By: #### 1 1917160, 8312908, 972750378, 5609410, 9915856 ####[facility] [address] [place] [address] Globulin (S) [Mass/Vol] 3.7 g/dL Normal 1.4-4.0 [facility] Comment on above: Performed By: #### 1 9199545, 1856675, 167237381, 8969817, 7235400 ####[facility] [address] [place] [address] Glucose [Mass/Vol] 128 mg/dL Normal 55-199 [facility] Comment on above: Result Comment: If t his glucose result represents a fasting glucose, interpretation should refer to the following reference range: 55-99 mg/dL Performed By: #### 1 9992671, 5318830, 187395949, 2817891, 2050203 ####[facility] [address] [place] [address] Potassium [Moles/Vol] 4.1 mmol/L Normal 3.5-5.3 [facility] Comment on above: Performed By: #### 1 1438687, 3329070, 611191719, 9657510, 8746072 ####[facility] [address] [place] [address] Protein [Mass/Vol] 7.3 g/dL Normal 6.0-7.8 [facility] Comment on above: Performed By: #### 1 4218462, 3023106, 614396031, 7864998, 7750336 ####[address] [place] [address] Sodium [Moles/Vol] 142 mmol/L Normal 135-145 [facility] Comment on above: Performed By: #### 1 0090914, 2146483, 694926679, 7609571, 7435646 ####[facility] [address] [place] [address] Urea nitrogen [Mass/Vol] 57 mg/dL High 5-21 [facility] Comment on above: Performed By: #### 1 7983720, 7817029, 734556491, 4592677, 2150669 ####[facility] [address] [place] [address] Urea nitrogen/Creatinine [Mass ratio] 38 No Units High 10-20 [facility] Comment on above: Performed By: #### 1 2278023, 9209210, 882682116, 8607314, 7527138 ####[facility] [address] [place] [address] Capillary Glucose POCon 07 Glucose [Mass/Vol] 256 mg/dL High 55-99 [facility] Comment on above: Result Comment: Yazmin bri Meter Performed By: #### 2 84767809 ####[facility] [address] [place] [address] Glucose [Mass/Vol] 152 mg/dL High 55-[address] [place] [address] Comment on above: Result Comment: Yazmin bri Meter Performed By: #### 2 09468613 ####[facility] [address] [place] [address] VknP0aat 12-13-2022 HbA1c (Bld) [Mass fraction] 6.5 % High <=5.9 [facility] Comment on above: Performed By: #### 1 2426902, 7183193, 965520658, 9744043, 5964844 ####[facility] [address] [place] [address] eGFRon 12-13-2022 GFR/1.73 sq M.predicted among non-blacks MDRD (S/P/Bld) [Vol rate/Area] 47 mL/min/1.73 m2 Low >=59 [facility] Comment on above: Order Comment: Order added by Discern Expert. Result Comment: Manager Recovery earnest kidney disease could be indicated at eGFR's of less than 60 mL/min/1.73m2. Kidney failure is indicated at less than 15 mL/min/1.73m2. Performed By: #### 1 4533190, 3623478, 401250314, 4762880, 2392832 ####[facility] [address] [place] [address] Capillary Glucose POCon 11-22 Glucose [Mass/Vol] 212 mg/dL High [address] [place] [address] Comment on above: Result Comment: Yazmin bri Meter Performed By: #### 2 01519317 ####[facility] [address] [place] [address] Glucose [Mass/Vol] 161 mg/dL [address] Comment on above: Result Comment: Yazmin bri Meter Performed By: #### 2 72274274 ####[facility] [address] [place] [address] Capillary Glucose POCon 11-22 Glucose [Mass/Vol] 206 mg/dL High [address] [place] [address] Comment on above: Result Comment: Yazmin bri Meter Performed By: #### 2 55609630 ####[facility] [address] [address] Glucose [Mass/Vol] 152 mg/dL [address] Comment on above: Result Comment: Yazmin bri Meter Performed By: #### 2 32512997 ####[facility] [address] [address] Capillary Glucose POCon 11-22 Glucose [Mass/Vol] 140 mg/dL [address] Comment on above: Result Comment: Yazmin bri Meter Performed By: #### 2 75349177 ####[facility] [address] [place] [address] Capillary Glucose POCon 11-21 Glucose [Mass/Vol] 243 mg/dL [address] Comment on above: Result Comment: Yazmin bri Meter Performed By: #### 2 22009975 ####[facility] [address] [place] [address] Glucose [Mass/Vol] 157 mg/dL [address] Comment on above: Result Comment: Yazmin bri Meter Performed By: #### 2 13525353 ####[facility] [address] [place] [address] Capillary Glucose POCon 11-21 Glucose [Mass/Vol] 181 mg/dL [address] Comment on above: Result Comment: Yazmin bri Meter Performed By: #### 2 42768125 ####[facility] [address] [address] Capillary Glucose POCon 11-21 Glucose [Mass/Vol] 149 mg/dL [address] Comment on above: Result Comment: Yazmin bri Meter Performed By: #### 2 95704566 ####[facility] [address] [address] Glucose [Mass/Vol] 164 mg/dL High 55-99 [facility] Comment on above: Result Comment: Yazmin bri Meter Performed By: #### 2 40665610 ####[facility] [address] [place] [address] Capillary Glucose POCon 11-21 Glucose [Mass/Vol] 265 mg/dL High 55-99 [facility] Comment on above: Result Comment: Yazmin bri Meter Performed By: #### 2 59954593 ####[facility] [address] [place] [address] Glucose [Mass/Vol] 129 mg/dL High 55-99 [facility] Comment on above: Result Comment: Yazmin bri Meter Performed By: #### 2 13916665 ####[facility] [address] [place] [address] Family Medicine Office/Clini c Noteon 12-06-2022 Family Medicine Office/Clinic Note Normal [facility] Comment on above: Result Comment: Elec tronically Signed By: SHAISTA POTTS, Donta\.br\Date and Time Signed: 12/06/22 21:11 EDT Capillary Glucose POCon 11-21 Glucose [Mass/Vol] 196 mg/dL High 55-99 [facility] Comment on above: Result Comment: Yazmin bri Meter Performed By: #### 2 55420171 ####[facility] [address] [address] Glucose [Mass/Vol] 159 mg/dL High 55-99 [facility] Comment on above: Result Comment: Yazmin bri Meter Performed By: #### 2 10311577 ####[facility] [address] [place] [address] Capillary Glucose POCon 11-21 Glucose [Mass/Vol] 195 mg/dL High 55-99 [facility] Comment on above: Result Comment: Gareth guerrero RN/ Performed By: #### 2 15022291 ####[facility] [address] [place] [address] Insurance Correspondence Off ice12-04-2022 Insurance Correspondence Office [id number]# 1.00CD:127 Normal [facility] Physician Orderon 12-03-2022 Physician Order [id number]# 1.00CD:127 Normal [facility] CHEMISTRYOrdered By: Lab ROP User on 12-02-2022 Glucose [Mass/Vol] 227 mg/dL High 55 - 99 mg/dL [facility] Subsection Comment on above: Result Comment: Gareth GARDINER POC Device SN [id number] Invalid Interpretation Code [facility] Subsection POC User ID [id number] Invalid Interpretation Code [facility] Subsection POC Username KINGSTON JAMISON Invalid Interpretation Code [facility] Subsection Glucose [Mass/Vol] 127 mg/dL High 55 - 99 mg/dL [facility] Subsection Comment on above: Result Comment: Gareth GARDINER POC Device SN [id number] Invalid Interpretation Code [facility] Subsection POC User ID [id number] Invalid Interpretation Code [facility] Subsection POC Username TOYIN REYNOLDS Invalid Interpretation Code [facility] Subsection Capillary Glucose POCon 11-21 Glucose [Mass/Vol] 227 mg/dL High 55-99 [facility] Comment on above: Result Comment: Gareth GARDINER Performed By: #### 2 [id number] ####[facility] [address] [place] [address] Glucose [Mass/Vol] 127 mg/dL High 55-99 [facility] Comment on above: Result Comment: Gareth GARDINER Performed By: #### 2 57797693 ####[facility] [address] [place] [address] Coding Queryon 12-02-2022 Coding Query Normal [facility] Discharge Note-Nursingon Discharge Note-Nursing Normal [facility] Inpatient Clinical Summaryon 12-02-2022 Inpatient Clinical Summary Normal [facility] Inpatient Patient Summaryon 12-02-2022 Inpatient Patient Summary Normal [facility] Insurance Correspondence Off iceon 12-02-2022 Insurance Correspondence Office [id number]#1. 00CD:127 Normal [facility] Interdisciplinary Note - Santosh e Manageron 12-02-2022 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 Normal [facility] Comment on above: Result Comment: Elec tronically Signed By: Dank HAYDEN, Lisa\.br\Date and Time Signed: 12/02/22 09:31 EDT Monitor Recordon 12-02-2022 Monitor Record [id number]# 1.00CD:127 Normal [facility] Physician Orderon 12-02-2022 Physician Order [id number]# 1.00CD:127 Normal [facility] Progress Note-Physicianon Progress Note-Physician Normal [facility] Comment on above: Result Comment: Elec tronically Signed By: Adeline COLEMAN\.br\Date and Time Signed: 12/01/22 18:43 EDT\.br\Electronically Co-Signed By: Juan Hdz DO\.br\Date and Time Co-Signed: 12/02/22 07:20 EDT Transfer Documentson 023 Transfer Documents [id number]# 1.00CD:127 Normal [facility] BMPon 12-01-2022 Anion gap [Moles/Vol] 13 mmol/L Normal 6-16 [facility] Comment on above: Performed By: #### 1 4789899, 4541749, 0028949, 9755101 ####[facility] [address] [place] [address] Calcium [Mass/Vol] 9.1 mg/dL Normal 8.9-11.1 [facility] Comment on above: Performed By: #### 1 9545759, 1455100, 4437685, 7246010 ####[facility] [address] [place] [address] Chloride [Moles/Vol] 102 mmol/L Normal 101-111 [facility] Comment on above: Performed By: #### 1 4092568, 6600174, 1856054, 6498608 ####[facility] [address] [place] [address] CO2 [Moles/Vol] 28 mmol/L Normal 21-31 [facility] Comment on above: Performed By: #### 1 8035100, 9463902, 0518160, 0239508 ####[facility] [address] [place] [address] Creatinine [Mass/Vol] 1.3 mg/dL Normal 0.5-1.3 [facility] Comment on above: Performed By: #### 1 1172027, 2779651, 3692291, 9168367 ####[facility] [address] [place] [address] Glucose [Mass/Vol] 97 mg/dL Normal 55-199 [facility] Comment on above: Result Comment: If t his glucose result represents a fasting glucose, interpretation should refer to the following reference range: 55-99 mg/dL Performed By: #### 1 4275033, 7814565, 2676899, 1759253 ####[facility] [address] [place] [address] Potassium [Moles/Vol] 4.6 mmol/L Normal 3.5-5.3 [facility] Comment on above: Performed By: #### 1 3276612, 1459129, 5189466, 9814550 ####[facility] [address] [address] Sodium [Moles/Vol] 138 mmol/L Normal 135-145 [facility] Comment on above: Performed By: #### 1 9231047, 6056152, 2451259, 9818381 ####[facility] [address] [address] Urea nitrogen [Mass/Vol] 24 mg/dL High 5-21 [facility] Comment on above: Performed By: #### 1 4725767, 4811928, 3969285, 0995174 ####[facility] [address] [facility] [place] [address] Urea nitrogen/Creatinine [Mass ratio] 18 No Units Normal 10-20 [facility] [facility] Comment on above: Performed By: #### 1 [id number], 7430462, 3389944, 8639692 ####[facility] [address] [place] [address] CHEMISTRYOrdered By: Lab ROP User on 12-01-2022 Glucose [Mass/Vol] 114 mg/dL High 55 - 99 mg/dL [facility] POC Subsection Comment on above: Result Comment: Gareth guerrero RN/ POC Device SN [id number] Invalid Interpretation Code [facility] POC Subsection POC User ID [id number] Invalid Interpretation Code [facility] POC Subsection POC Username MORGANCarolNETO Invalid Interpretation Code [facility] POC Subsection CHEMISTRYOrdered By: SYSTEM SYSTEM on 12-01-2022 Anion gap [Moles/Vol] 13 mmol/L Normal 6 - 16 mEq/L [facility] Remisol Calcium [Mass/Vol] 9.1 mg/dL Normal 8.9 - 11. 1 mg/dL [facility] Chloride [Moles/Vol] 102 mmol/L Normal 101 - 1 11 mmol/L [facility] CK [Catalytic activity/Vol] 211 [iU]/d Normal 14 - 261 Int._Unit/L [facility] Remisol CO2 [Moles/Vol] 28 mmol/L Normal 21 - 31 mmol/L [facility] Remisol Creatinine [Mass/Vol] 1.3 mg/dL Normal 0.5 - 1.3 mg/dL [facility] Remisol GFR/1.73 sq M.predicted among non-blacks MDRD (S/P/Bld) [Vol rate/Area] 56 mL/min/1.73 m2 Low >=59mL/min/ 1.73 m2 [facility] Chem S Glucose [Mass/Vol] 97 mg/dL Normal 55 - 199 mg/dL [facility] Magnesium [Mass/Vol] 2.1 mg/dL Normal 1.3 - 2 .4 mg/dL [facility] Potassium [Moles/Vol] 4.6 mmol/L Normal 3.5 - 5.3 mmol/L [facility] Sodium [Moles/Vol] 138 mmol/L Normal 135 - 145 mmol/L [facility] Remisol Urea nitrogen [Mass/Vol] 24 mg/dL High 5 - 21 mg/dL [facility] Remisol Urea nitrogen/Creatinine [Mass ratio] 18 mg/mg Normal 10 - 20 [facility] Remisol CKon 12-01-2022 CK [Catalytic activity/Vol] 211 Int._Unit/L Normal 14-261 [facility] Comment on above: Performed By: #### 1 [id number], 1770336, 6982813, 1828884 ####[facility] [address] [place] [address] Capillary Glucose POCon 11-21 Glucose [Mass/Vol] 114 mg/dL High 55-99 [facility] Comment on above: Result Comment: Gareth GARDINER Performed By: #### 2 [id number] ####[facility] [address] [place] [address] Glucose [Mass/Vol] 193 mg/dL High 55-99 [facility] Comment on above: Result Comment: Gareth GARDINER Performed By: #### 2 [id number] ####[facility] [address] [place] [address] Glucose [Mass/Vol] 203 mg/dL High 55-99 [facility] Comment on above: Result Comment: Gareth GARDINER Performed By: #### 2 59275531 ####[facility] [address] [place] [address] Glucose [Mass/Vol] 110 mg/dL High 55-99 [facility] Comment on above: Result Comment: Gareth GARDINER Performed By: #### 2 [id number] ####[facility] [address] [place] [address] Interdisciplinary Note - Santosh e Manageron 12-01-2022 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 Pt is accepted to [facility] side, pending precert at this time. Contact information provided and white board updated, CRM following Normal [facility] Comment on above: Result Comment: Elec tronically Signed By: Dank HAYDEN, Lisa\.candice\Date and Time Signed: 12/01/22 08:20 EDT Ionized Calciumon 12-01-2022 Calcium.ionized ISE [Mass/Vol] 4.8 mg/dL Invalid Interpretation Code 4.5-5.6 [facility] Comment on above: Result Comment: Perf ormed at: [facility] [address] [place], [place] [id number] PhD Michael Cortes Performed By: #### 2 716624, 2938785, 1486550, 81780553, 75811662, 7407962, 25656085, 1784205, 44870644, 934368534, 4573417, 7339479 ####[facility] [address] [place] [address] Magnesiumon 12-01-2022 Magnesium [Mass/Vol] 2.1 mg/dL Normal 1.3-2.4 [facility] Comment on above: Performed By: #### 1 1068394, 3716712, 5697424, 3571327 ####[facility] [address] [place] [address] Progress Note-Physicianon Progress Note-Physician Normal [facility] Comment on above: Result Comment: Elec tronically Signed By: Pao POTTS, Lizeth\.br\Date and Time Signed: 12/01/22 12:41 EDT XR Abdomen 1 Viewon 12-02-19 23 XR Abdomen 1 View Normal [facility] eGFRon 12-01-2022 GFR/1.73 sq M.predicted among non-blacks MDRD (S/P/Bld) [Vol rate/Area] 56 mL/min/1.73 m2 Low >=59 [facility] Comment on above: Order Comment: Order added by Discern Expert. Result Comment: Manager Recovery earnest kidney disease could be indicated at eGFR's of less than 60 mL/min/1.73m2. Kidney failure is indicated at less than 15 mL/min/1.73m2. Performed By: #### 1 9083237, 5870001, 6785252, 6530286 ####[facility] [address] [place] [address] BMPon 11-30-2022 Anion gap [Moles/Vol] 11 mmol/L Normal 6-16 [facility] Comment on above: Performed By: #### 2 302563, 1227439, 21914718 ####[facility] [address] [place] [address] Calcium [Mass/Vol] 9.0 mg/dL Normal 8.9-11.1 [facility] Comment on above: Performed By: #### 2 381914, 2648902, 41004501 ####[facility] [address] [place] [address] Chloride [Moles/Vol] 102 mmol/L Normal 101-111 [facility] Comment on above: Performed By: #### 2 024017, 9859120, 50705899 ####[facility] [address] [place] [address] CO2 [Moles/Vol] 31 mmol/L Normal 21-31 [facility] Comment on above: Performed By: #### 2 605926, 8425718, 20167937 ####[facility] [address] [place] [address] Creatinine [Mass/Vol] 1.1 mg/dL Normal 0.5-1.3 [facility] Comment on above: Performed By: #### 2 599996, 8900426, 82906843 ####[facility] [address] [place] [address] Glucose [Mass/Vol] 114 mg/dL Normal 55-199 [facility] Comment on above: Result Comment: If t his glucose result represents a fasting glucose, interpretation should refer to the following reference range: 55-99 mg/dL Performed By: #### 2 846798, 6265592, 26046953 ####[facility] [address] [place] [address] Potassium [Moles/Vol] 3.4 mmol/L Low 3.5-5.3 [facility] Comment on above: Performed By: #### 2 581347, 5106530, 81172083 ####[facility] [address] [place] [address] Sodium [Moles/Vol] 141 mmol/L Normal 135-145 [facility] Comment on above: Performed By: #### 2 625897, 9648816, 04655231 ####[facility] [address] [place] [address] Urea nitrogen [Mass/Vol] 23 mg/dL High 5-21 [facility] Comment on above: Performed By: #### 2 748960, 6243393, 47355682 ####[facility] [address] [place] [address] Urea nitrogen/Creatinine [Mass ratio] 21 No Units High 10-20 [facility] Comment on above: Performed By: #### 2 725949, 7998730, 96130862 ####[facility] [address] [place] [address] CHEMISTRYOrdered By: SYSTEM SYSTEM on 11-30-2022 Anion gap [Moles/Vol] 11 mmol/L Normal 6 - 16 mEq/L [facility] Remisol Calcium [Mass/Vol] 9.0 mg/dL Normal 8.9 - 11. 1 mg/dL [facility] Chloride [Moles/Vol] 102 mmol/L Normal 101 - 1 11 mmol/L [facility] Remisol CO2 [Moles/Vol] 31 mmol/L Normal 21 - 31 mmol/L [facility] Remisol Creatinine [Mass/Vol] 1.1 mg/dL Normal 0.5 - 1.3 mg/dL [facility] Remisol GFR/1.73 sq M.predicted among non-blacks MDRD (S/P/Bld) [Vol rate/Area] 69 mL/min/1.73 m2 Normal >=59mL/min/ 1.73 m2 [facility] Chem S Glucose [Mass/Vol] 114 mg/dL Normal 55 - 199 mg/dL [facility] Magnesium [Mass/Vol] 1.8 mg/dL Normal 1.3 - 2 .4 mg/dL [facility] Potassium [Moles/Vol] 3.4 mmol/L Low 3.5 - 5.3 mmol/L [facility] Remisol Sodium [Moles/Vol] 141 mmol/L Normal 135 - 145 mmol/L [facility] Remisol Urea nitrogen [Mass/Vol] 23 mg/dL High 5 - 21 mg/dL [facility] Remisol Urea nitrogen/Creatinine [Mass ratio] 21 mg/mg High 10 - 20 [facility] Remisol Capillary Glucose POCon 11-21 Glucose [Mass/Vol] 194 mg/dL High 55-99 [facility] Comment on above: Result Comment: Gareth GARDINER Performed By: #### 2 [id number] ####[facility] [address] [place] [address] Glucose [Mass/Vol] 96 mg/dL Normal 55-99 [facility] Comment on above: Performed By: #### 2 01914496 ####[facility] [address] [place] [address] Glucose [Mass/Vol] 130 mg/dL High 55-99 [facility] Comment on above: Result Comment: Gareth GARDINER Performed By: #### 2 84366476 ####[facility] [address] [place] [address] Glucose [Mass/Vol] 113 mg/dL High 55-99 [facility] Comment on above: Result Comment: Gareth GARDINER Performed By: #### 2 09794889 ####[facility] [address] [place] [address] Echo Transthoracic Completeo n 11-30-2022 Echo Transthoracic Complete Normal [facility] Insurance Correspondence Off iceon 11-30-2022 Insurance Correspondence Office [phone] [id number] [id number]:127 Normal [facility] Interdisciplinary Note - Santosh e Manageron 11-30-2022 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 Normal [facility] Comment on above: Result Comment: Elec tronically Signed By: Dank HAYDEN, Lisa\.candice\Date and Time Signed: 11/30/22 10:48 EDT Magnesiumon 11-30-2022 Magnesium [Mass/Vol] 1.8 mg/dL Normal 1.3-2.4 [facility] Comment on above: Performed By: #### 2 358821, 3704434, 81818552 ####[facility] [address] [place] [address] Message from Medicareon 11-21 Message from Medicare [id number] .00CD:127 Normal [facility] Progress Note-Physicianon Progress Note-Physician Normal [facility] Comment on above: Result Comment: Elec tronically Signed By: Joanie Jiménez MD\.br\Date and Time Signed: 11/30/22 15:13 EDT Progress Note-Physician Normal [facility] Comment on above: Result Comment: Elec tronically Signed By: Lizeth Cedeno MD\.br\Date and Time Signed: 11/30/22 14:52 EDT UA With Cult Reflexon 2022 Bacteria LM Ql (Urine sed) TRACE Normal Trace [facility] Comment on above: Order Comment: Urina ry Catheter Insertion triggered Urinalysis With Culture Reflex order by discern. Performed By: #### 1 9118721 ####[facility] [address] [place] [address] Bilirubin Ql (U) Negative Normal Negative [facility] Comment on above: Order Comment: Urina ry Catheter Insertion triggered Urinalysis With Culture Reflex order by discern. Performed By: #### 1 6449278 ####[facility] [address] [place] [address] Clarity (U) CLEAR Normal Clear [facility] Comment on above: Order Comment: Urina ry Catheter Insertion triggered Urinalysis With Culture Reflex order by discern. Performed By: #### 1 7955084 ####[facility] [address] [place] [address] Color (U) YELLOW Normal Yellow [facility] Comment on above: Order Comment: Urina ry Catheter Insertion triggered Urinalysis With Culture Reflex order by discern. Performed By: #### 1 1209315 ####[facility] [address] [place] [address] Epithelial cells.squamous LM.HPF (Urine sed) [#/Area] 0-2 Normal 0-2 [facility] Comment on above: Order Comment: Urina ry Catheter Insertion triggered Urinalysis With Culture Reflex order by discern. Performed By: #### 1 9803140 ####[facility] [address] [place] [address] Glucose Test strip (U) [Mass/Vol] Negative Normal Negative [facility] Comment on above: Order Comment: Urina ry Catheter Insertion triggered Urinalysis With Culture Reflex order by discern. Performed By: #### 1 2000953 ####[facility] [address] [place] [address] Hemoglobin Ql (U) Negative Normal Negative [facility] Comment on above: Order Comment: Urina ry Catheter Insertion triggered Urinalysis With Culture Reflex order by discern. Performed By: #### 1 3172616 ####[facility] [address] [place] [address] Ketones (U) [Mass/Vol] Negative Normal Negative [facility] Comment on above: Order Comment: Urina ry Catheter Insertion triggered Urinalysis With Culture Reflex order by discern. Performed By: #### 1 4608069 ####[facility] [address] [place] [address] Fircrest.plasma/Fircrest.R BC (Bld) [Mass ratio] 0-3 Normal 0-3 [facility] Comment on above: Order Comment: Urina ry Catheter Insertion triggered Urinalysis With Culture Reflex order by discern. Performed By: #### 1 1629045 ####[facility] [address] [place] [address] Nitrite Ql (U) Negative Normal Negative [facility] Comment on above: Order Comment: Urina ry Catheter Insertion triggered Urinalysis With Culture Reflex order by discern. Performed By: #### 1 9914369 ####[facility] [address] [place] [address] pH (U) 6.0 [pH] Invalid Interpretation Code 5.0-9.0 [facility] Comment on above: Order Comment: Urina ry Catheter Insertion triggered Urinalysis With Culture Reflex order by discern. Performed By: #### 1 4133130 ####[address] [address] Protein (U) [Mass/Vol] Negative Normal Negative [facility] Comment on above: Order Comment: Urina ry Catheter Insertion triggered Urinalysis With Culture Reflex order by discern. Performed By: #### 1 4861422 ####[place] [address] Specific gravity (U) [Rel density] 1.010 Invalid Interpretation Code 1.005-1.030 [facility] Comment on above: Order Comment: Urina ry Catheter Insertion triggered Urinalysis With Culture Reflex order by discern. Performed By: #### 1 4243324 ####[place] [address] Type of Urine collection method Red Normal [facility] Comment on above: Order Comment: Urina ry Catheter Insertion triggered Urinalysis With Culture Reflex order by discern. Performed By: #### 1 2497901 ####[place] [address] Urobilinogen Qn (U) 0.2 {Lei'U}/dL Normal 0.0-1.0 [facility] Comment on above: Order Comment: Urina ry Catheter Insertion triggered Urinalysis With Culture Reflex order by discern. Performed By: #### 1 4661890 ####[place] 8646357 WBC Auto Ql (U) Negative Normal Negative [facility] Comment on above: Order Comment: Urina ry Catheter Insertion triggered Urinalysis With Culture Reflex order by discern. Performed By: #### 1 2545045 ####[place] 8646357 WBC casts LM.LPF (Urine sed) [#/Area] 0-3 Normal [facility] Comment on above: Order Comment: Urina ry Catheter Insertion triggered Urinalysis With Culture Reflex order by discern. Performed By: #### 1 1977910 ####[address] [place] [address] WBC LM.HPF (Urine sed) [#/Area] 0-5 Normal 0-5 [facility] Comment on above: Order Comment: Urina ry Catheter Insertion triggered Urinalysis With Culture Reflex order by discern. Performed By: #### 1 8362760 ####[facility] [address] [place] [address] URINALYSISOrdered By: Houston Castillo on 11-30-2022 Bacteria [...] AM) Normal Negative [facility] UA Auto SS Fircrest.plasma/Fircrest.R BC (Bld) [Mass ratio] 0-3 /HPF Normal [...] [facility] UA Auto SS Urobilinogen Qn (U) 0.8164500 {Lei'U}/dL Normal 0.0 - 1.0 EU/dL [facility] UA Auto SS WBC Auto Ql (U) Negative (11/30/22 11:00 AM) Normal Negative [facility] UA Auto SS WBC casts LM.LPF (Urine sed) [#/Area] 0-3 (11/30/22 11:00 AM) Normal [facility] UA Auto SS WBC LM.HPF (Urine sed) [#/Area] 0-5 /HPF Normal 0-5/HPF [facility] UA Auto SS eGFRon 11-30-2022 GFR/1.73 sq M.predicted among non-blacks MDRD (S/P/Bld) [Vol rate/Area] 69 mL/min/1.73 m2 Normal >=59 [facility] Comment on above: Order Comment: Order added by Discern Expert. Result Comment: Manager Recovery earnest kidney disease could be indicated at eGFR's of less than 60 mL/min/1.73m2. Kidney failure is indicated at less than 15 mL/min/1.73m2. Performed By: #### 2 322986, 9470683, 15521432 ####[facility] [address] [place] [address] Auto Diffon 11-29-2022 Basophils/100 WBC (Bld) 0.5 % Normal 0.0-2.0 [facility] Comment on above: Order Comment: Order Added by Discern Expert. Performed By: #### 2 655854, 6126418, 2907296, 59743633, 03538171, 5624912, 17849575, 8397760, 82229697, 836946385, 2640539, 0365593 ####[facility] [address] [place] [address] Basophils/Leukocytes Auto (Bld) [Pure # fraction] 0.0 E9/L Normal 0.0-0.2 [facility] Comment on above: Order Comment: Order Added by Discern Expert. Performed By: #### 2 688121, 5583193, 7881631, 01745932, 35136925, 7509001, 77683872, 7363294, 14164259, 215498668, 2163298, 5204870 ####[facility] [address] [place] [address] Eosinophils/100 WBC (Bld) 8.4 % High 0.0-8.0 [facility] Comment on above: Order Comment: Order Added by Discern Expert. Performed By: #### 2 715179, 2580227, 2169129, 76565540, 91191599, 3843049, 41971010, 4590826, 06350041, 668569947, 8067783, 1667640 ####[facility] [address] [place] [address] Eosinophils/Leukocytes Auto (Bld) [Pure # fraction] 0.6 E9/L High 0.0-0.5 [facility] Comment on above: Order Comment: Order Added by Discern Expert. Performed By: #### 2 778167, 8303004, 9661341, 53786419, 88673080, 1869936, 27663738, 3198829, 88282695, 168220466, 6090259, 1100867 ####[facility] [address] [place] [address] Lymphocytes/100 WBC (Bld) 15.8 % Normal 14.0-50.0 [facility] Comment on above: Order Comment: Order Added by Discern Expert. Performed By: #### 2 316099, 8117334, 6834302, 27927776, 05227015, 3989887, 69798111, 0697702, 64544316, 500114703, 3698312, 5046111 ####[facility] [address] [place] [address] Lymphocytes/Leukocytes Auto (Bld) [Pure # fraction] 1.2 E9/L Normal 1.0-4.0 [facility] Comment on above: Order Comment: Order Added by Discern Expert. Performed By: #### 2 896739, 3738722, 4280340, 44928404, 29710310, 0846777, 21756593, 6232770, 63321922, 833821326, 0755151, 4558627 ####[facility] [address] [place] [address] Monocytes/100 WBC (Bld) 8.4 % Normal 4.0-14.0 [facility] Comment on above: Order Comment: Order Added by Discern Expert. Performed By: #### 2 564053, 1651722, 1110719, 51165971, 59057382, 3553312, 22305444, 3013857, 68326570, 290235439, 4271510, 8260925 ####[facility] [address] [place] [address] Monocytes/Leukocytes Auto (Bld) [Pure # fraction] 0.6 E9/L Normal 0.2-1.0 [facility] Comment on above: Order Comment: Order Added by Discern Expert. Performed By: #### 2 461735, 8923402, 0089323, 32855917, 69763508, 9499245, 55707061, 5206396, 61593413, 116779663, 1437385, 7584476 ####[facility] [address] [place] [address] Neutrophils/100 WBC (Bld) 66.9 % Normal 36.0-75.0 [facility] Comment on above: Order Comment: Order Added by Discern Expert. Performed By: #### 2 767446, 8385250, 6180962, 51839106, 50169935, 2613338, 09633795, 9038990, 99179110, 365133477, 5393708, 2191636 ####[facility] [address] [place] [address] Neutrophils/Leukocytes Auto (Bld) [Pure # fraction] 5.0 E9/L Normal 2.0-7.5 [facility] Comment on above: Order Comment: Order Added by Discern Expert. Performed By: #### 2 116271, 2663168, 7814485, 48132411, 61804616, 4980245, 17829858, 9699542, 92564056, 054106449, 2897084, 0031921 ####[facility] [address] [place] [address] BMPon 11-29-2022 Anion gap [Moles/Vol] 13 mmol/L Normal 6-16 [facility] Comment on above: Performed By: #### 2 512271, 4787572, 2683951, 13200824, 56567105, 6801869, 20031458, 9757271, 15366866, 060334724, 0949959, 7863385 ####[facility] [address] [place] [address] Calcium [Mass/Vol] 9.1 mg/dL Normal 8.9-11.1 [facility] Comment on above: Performed By: #### 2 982335, 7160621, 6413130, 02134141, 01948738, 3098926, 87426849, 2848939, 97892606, 185942389, 4835952, 3092875 ####[facility] [address] [place] [address] Chloride [Moles/Vol] 102 mmol/L Normal 101-111 [facility] Comment on above: Performed By: #### 2 558516, 3367244, 3682164, 92086947, 75712579, 3014656, 83078468, 5016019, 15159204, 948045234, 3657704, 1153013 ####[facility] [address] [place] [address] CO2 [Moles/Vol] 29 mmol/L Normal 21-31 [facility] Comment on above: Performed By: #### 2 713344, 5747103, 1171032, 20072597, 24538343, 7937947, 04101236, 2601057, 22104209, 053335977, 0740970, 5853754 ####[facility] [address] [place] [address] Creatinine [Mass/Vol] 1.1 mg/dL Normal 0.5-1.3 [facility] Comment on above: Performed By: #### 2 271203, 3370628, 0134346, 03065441, 10578402, 5677687, 32661419, 3636216, 61858325, 844705123, 5871896, 1847247 ####[facility] [address] [place] [address] Glucose [Mass/Vol] 95 mg/dL Normal 55-199 [facility] Comment on above: Result Comment: If t his glucose result represents a fasting glucose, interpretation should refer to the following reference range: 55-99 mg/dL Performed By: #### 2 172469, 0500787, 2436706, 12422913, 79495380, 2672744, 98436141, 9740303, 86009538, 100805801, 1188113, 1329230 ####[facility] [address] [place] [address] Potassium [Moles/Vol] 3.9 mmol/L Normal 3.5-5.3 [facility] Comment on above: Performed By: #### 2 930951, 8738338, 8426086, 63885469, 23676128, 0681890, 76537096, 6623668, 78867931, 948176424, 8272590, 2967291 ####[facility] [address] [place] [address] Sodium [Moles/Vol] 140 mmol/L Normal 135-145 [facility] Comment on above: Performed By: #### 2 085413, 9994831, 4605441, 30494827, 15643843, 7830201, 26596693, 3982717, 57113712, 184590956, 0246435, 5890352 ####[facility] [address] [place] [address] Urea nitrogen [Mass/Vol] 16 mg/dL Normal 5-21 [facility] Comment on above: Performed By: #### 2 405201, 0999015, 8158826, 73571259, 44635378, 2061805, 29861807, 9698745, 90463746, 953503628, 3614966, 5336168 ####[facility] [address] [place] [address] Urea nitrogen/Creatinine [Mass ratio] 14 No Units Normal 10-20 [facility] Comment on above: Performed By: #### 2 617972, 1754007, 1938222, 16530724, 29970356, 3789150, 36912337, 9526063, 20928804, 723950185, 7787731, 4916041 ####[facility] [address] [place] [address] BNPon 11-29-2022 Natriuretic peptide B (Bld) [Mass/Vol] 855 pg/mL High 5-80 [facility] Comment on above: Performed By: #### 2 356359, 9790582, 3892191, 92341016, 63826326, 8837653, 49084195, 9109869, 07893112, 724751726, 5281986, 8494039 ####[facility] [address] [place] [address] CBC w/ Auto Diffon 3 Erythrocyte distribution width (RBC) [Ratio] 14.9 % High 10.9-14.2 [facility] Comment on above: Performed By: #### 2 503426, 1282161, 0900689, 84911048, 68175275, 8129156, 95279370, 6634066, 04780817, 571622463, 3602062, 9492938 ####[facility] [address] [place] [address] Hematocrit (Bld) [Volume fraction] 38.1 % Normal 37.7-49.0 [facility] Comment on above: Performed By: #### 2 879185, 8753726, 5569989, 00191475, 99833270, 3953059, 23025177, 8232659, 50140490, 829024239, 4290073, 2317640 ####[facility] [address] [place] [address] Hemoglobin (Bld) [Mass/Vol] 12.8 g/dL Low 13.5-17.5 [facility] Comment on above: Performed By: #### 2 022366, 6664275, 5626719, 96397263, 82097283, 6271659, 39388854, 8018211, 90741724, 997229300, 0509383, 7976721 ####[facility] [address] [place] [address] MCH (RBC) [Entitic mass] 29.0 pg Normal 27.0-34.0 [facility] Comment on above: Performed By: #### 2 913486, 5483320, 0441626, 14537087, 47187538, 5943937, 59004499, 6390940, 11562130, 248699871, 2825964, 4478423 ####[facility] [address] [place], [place] [address] MCHC (RBC) [Mass/Vol] 33.7 g/dL Normal 31.4-36.0 [facility] Comment on above: Performed By: #### 2 028782, 3090064, 6290889, 88468302, 01792381, 1946313, 72070683, 0267018, 05319860, 648123131, 2379691, 9227142 ####[facility] [address] [place] [address] MCV (RBC) [Entitic vol] 86.1 fL Normal 80.0-100.0 [facility] Comment on above: Performed By: #### 2 945828, 9041225, 0973491, 89128125, 89233035, 4421331, 19559066, 3607295, 11223417, 724417968, 7049798, 2674618 ####[facility] [address] [place] [address] Platelet mean volume (Bld) [Entitic vol] 10.9 fL High 6.4-10.8 [facility] Comment on above: Performed By: #### 2 498261, 8746815, 7415071, 96872510, 53900890, 1404461, 02911394, 5997891, 93374550, 601762288, 7532015, 7727241 ####[facility] [address] [place] [address] Platelets (Bld) [#/Vol] 189.0 E9/L Normal 150.0-500.0 [facility] Comment on above: Performed By: #### 2 620959, 2429191, 1798698, 53185265, 60328976, 5037916, 13738913, 3344701, 79586418, 440857321, 9112130, 3737865 ####[address] [place] [address] RBC (Bld) [#/Vol] 4.4 E12/L Normal 4.3-5.9 [facility] Comment on above: Performed By: #### 2 325277, 7761928, 3493824, 62678127, 38941907, 8015701, 50864064, 8451297, 62120447, 850515277, 5225151, 6721347 ####[facility] [address] [place] [address] WBC corrected for nucl RBC Auto (Bld) [#/Vol] 7.4 E9/L Normal 4.0-11.0 [facility] Comment on above: Performed By: #### 2 056172, 6546701, 2778256, 78990565, 04381751, 2740451, 97672983, 2273376, 17233376, 882680989, 0965832, 1966174 ####[facility] [address] [place] [address] CHEMISTRYOrdered By: SYSTEM SYSTEM on 11-29-2022 Albumin [...] 69 mL/min/1.73 m2 Normal >=59mL/min/ 1.73 m2 [facility] Chem S Globulin (S) [Mass/Vol] 3.1 g/dL Normal 1.4 - 4.0 gm/dL FT Remisol Glucose [Mass/Vol] 95 mg/dL Normal 55 - 199 mg/dL [facility] Potassium [Moles/Vol] 3.9 mmol/L Normal 3.5 - 5.3 mmol/L FT [facility] Protein [Mass/Vol] 6.7 g/dL Normal 6.0 - 7.8 gm/dL [facility] Sodium [Moles/Vol] 140 mmol/L Normal 135 - 145 mmol/L [facility] Triglyceride [Mass/Vol] 72 mg/dL Normal <=149mg/dL [...] 37.00 pg/mL Normal 15.90 - 38.40 pg/mL [facility] Remisol CHEMISTRYOrdered By: Natalie Soto on 11-29-2022 Natriuretic peptide B (Bld) [Mass/Vol] 855 pg/mL High 5 - 80 pg/mL [facility] HemeManSS CHEMISTRYOrdered By: Marian peterson DomainUser on 11-29-2022 Calcium.ionized ISE [Mass/Vol] 4.8 mg/dL Invalid Interpretation Code 4.5-5.6mg/d L [facility] SendOutsSS Comment on above: Result Comment: Perf ormed at: CB [facility] [address] [place], [place] [id number] PhD Michael Cortes CKon 11-29-2022 CK [Catalytic activity/Vol] 1096 Int._Unit/L Abnormal 14-261 [facility] Comment on above: Result Comment: Crit ical Result verified by repeat analysis\Critical Result S_CK:1096 Called to MANAS BARBA AT by AMY JOHNSON and read back for confirmation at 11/29/2022 06:40:15 Performed By: #### 2 223922, 4853845, 6227750, 63513450, 18416524, 1177778, 99754820, 4869491, 71625021, 366031502, 9516534, 4151755 ####[facility] [address] [place] [address] CT Abdomen/Pelvis w/ Contras ton 11-29-2022 CT Abdomen/Pelvis w/ Contrast Normal [facility] CT Head or Brain w/o Contras ton 11-29-2022 CT Head or Brain w/o Contrast Normal [facility] CTA Cheston 11-29-2022 CTA Chest Normal [facility] Capillary Glucose POCon Glucose [Mass/Vol] 122 mg/dL High 55-99 [facility] Comment on above: Result Comment: Gareth GARDINER Performed By: #### 2 20743437 ####[facility] [address] [place] [address] Glucose [Mass/Vol] 174 mg/dL High 55-99 [facility] Comment on above: Performed By: #### 2 75369114 ####[facility] [address] [place] [address] Glucose [Mass/Vol] 107 mg/dL High 55-99 [facility] Comment on above: Result Comment: Gareth GARDINER Performed By: #### 2 [id number] ####[facility] [address] [address] Consultation Noteon 11-30-19 Consultation Note Normal [facility] Comment on above: Result Comment: Elec tronically Signed By: Marcus POTTS, [place]\Date and Time Signed: 11/29/22 14:44 EDT ED Clinical Summaryon 2022 ED Clinical Summary Normal [facility] ED Note-Physicianon 11-30-19 ED Note-Physician Normal [facility] Comment on above: Result Comment: Elec tronically Signed By: Coretta STEIN, Elkin Prajapati\.candice\Date and Time Signed: 11/28/22 22:32 EDT ED Patient Education Noteon 11-29-2022 ED Patient Education Note Normal [facility] ED Patient Summaryon 023 ED Patient Summary Normal [facility] HEMATOLOGYOrdered By: SYSTEM SYSTEM on 11-29-2022 [...] 4.4 E12/L Normal 4.3 - 5.9 E12/L [facility] HemeAutoSS Sed Rate Automated 17 mm/h Normal 0 - 19 mm/hr FT HemeAutoSS WBC corrected for nucl RBC Auto (Bld) [#/Vol] 7.4 E9/L Normal 4.0 - 11.0 E9/L [facility] HemeAutoSS Hep Func Panelon 11-29-2022 Albumin [Mass/Vol] 3.6 g/dL Normal 3.3-5.0 [facility] Comment on above: Performed By: #### 2 246983, 0445371, 0840655, 92329292, 58025954, 5430511, 64123986, 0499965, 51597741, 808671566, 9768852, 9837311 ####[facility] [address] [place] [address] Albumin/Globulin (S) [Mass conc ratio] 1.2 Normal 1.1-2.2 [facility] Comment on above: Performed By: #### 2 172255, 0664813, 9034767, 11688865, 52687799, 6940154, 83443089, 3175090, 10894777, 803469979, 1348754, 5864984 ####[facility] [address] [place] [address] ALP [Catalytic activity/Vol] 40 Int._Unit/L Normal 21-98 [facility] Comment on above: Performed By: #### 2 232973, 0333997, 2922967, 88444449, 76423176, 9728163, 36370640, 8898652, 46697882, 541335835, 3853874, 1678759 ####[facility] [address] [place] [address] ALT No additional P-5'-P [Catalytic activity/Vol] 17 Int._Unit/L Normal 6-46 [facility] Comment on above: Performed By: #### 2 106401, 5957665, 8294661, 51776622, 34425008, 6818661, 99525999, 7520586, 46162836, 460058541, 9931719, 2880366 ####[facility] [address] [place] [address] AST [Catalytic activity/Vol] 33 Int._Unit/L Normal 5-43 [facility] Comment on above: Performed By: #### 2 985641, 4893234, 0456999, 18773603, 53791884, 3118462, 58131556, 7381409, 23852490, 565196886, 0557913, 8537630 ####[facility] [address] [place] [address] Bilirubin [Mass/Vol] 1.1 mg/dL Normal 0.0-1.1 [facility] Comment on above: Performed By: #### 2 323679, 3443154, 6750233, 51654252, 78564099, 9376797, 62365663, 4856995, 99196163, 943936500, 2707001, 3984321 ####[facility] [address] [place] [address] Bilirubin.direct [Mass/Vol] 0.2 mg/dL Normal 0.1-0.4 [facility] Comment on above: Performed By: #### 2 789292, 1604003, 8394412, 49922803, 15605757, 5117261, 88503061, 0856231, 36504366, 285039475, 7156496, 2437134 ####[facility] [address] [place] [address] Bilirubin.indirect [Mass or moles/Vol] 0.9 mg/dL Normal 0.1-0.9 [facility] Comment on above: Performed By: #### 2 200301, 6048542, 9807208, 42519020, 07334056, 5281909, 72590020, 1489544, 14764540, 105541328, 3346799, 2386448 ####[facility] [address] [place] [address] Globulin (S) [Mass/Vol] 3.1 g/dL Normal 1.4-4.0 [facility] Comment on above: Performed By: #### 2 849669, 7436313, 2485653, 13761661, 37335273, 3060096, 55899325, 4887011, 13771643, 825385596, 2616313, 8001517 ####[facility] [address] [place] [address] Protein [Mass/Vol] 6.7 g/dL Normal 6.0-7.8 [facility] Comment on above: Performed By: #### 2 990394, 5267435, 5011134, 32366080, 18400341, 5308247, 27939842, 7351274, 73984005, 654290341, 8812845, 6688881 ####[facility] [address] [place] [address] Interdisciplinary Note - Santosh e Manageron 11-29-2022 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 Normal [facility] Comment on above: Result Comment: Elec tronically Signed By: Jose HAYDEN, Norma\.br\Date and Time Signed: 11/29/22 15:07 EDT Lipid Panelon 11-29-2022 Cholesterol [Mass/Vol] 114 mg/dL Low 120-200 [facility] Comment on above: Performed By: #### 2 965719, 6378667, 2747908, 76076517, 92839762, 5057836, 77415843, 8483709, 66779320, 007480366, 0504690, 9215886 ####[facility] [address] [place] [address] Cholesterol in HDL [Mass/Vol] 50 mg/dL Invalid Interpretation Code [facility] Comment on above: Result Comment: HDL > or equal to 60 mg/dL: Low cardiovascular riskHDL < 40 mg/dL : High cardiovascular risk Performed By: #### 2 787181, 1502931, 6268254, 13821835, 43004132, 4779760, 66888266, 9027839, 70443596, 909606202, 5379076, 9420032 ####[facility] [address] [place] [address] Cholesterol in LDL [Mass/Vol] 43 mg/dL Normal <=129 [facility] Comment on above: Performed By: #### 2 779230, 1792297, 6611458, 49089918, 52243634, 1898414, 45298856, 5894085, 37184014, 994780660, 6516316, 6132869 ####[facility] [address] [place] [address] Cholesterol in VLDL [Mass/Vol] 14 mg/dL Normal 7-40 [facility] Comment on above: Performed By: #### 2 241004, 2618075, 3529658, 29462994, 13144315, 3704276, 80988147, 5574895, 18157961, 829782828, 1264663, 3469232 ####[facility] [address] [place] [address] Triglyceride [Mass/Vol] 72 mg/dL Normal <=149 [facility] Comment on above: Performed By: #### 2 195569, 9631050, 0235692, 70759156, 88477203, 2340641, 01544562, 4095595, 52710214, 057366280, 3469409, 5859426 ####[facility] [address] [place] [address] Monitor Recordon 11-29-2022 Monitor Record [id number]# 1.00CD:127 Normal [facility] Monitor Record [id number] 7 [id number]# 1.00CD:127 Normal [facility] Monitor Record [id number] 7 [id number]# 1.00CD:127 Normal [facility] Monitor Record [id number] 7 [id number]# 1.00CD:127 Normal [facility] Monitor Record [id number] 7 [id number]# 1.00CD:127 Normal [facility] Monitor Record [id number] 7 [id number]# 1.00CD:127 Normal [facility] Monitor Record [id number] 7 [id number]# 1.00CD:127 Normal [facility] Monitor Record [id number] 7 [id number]# 1.00CD:127 Normal [facility] Progress Note-Physicianon Progress Note-Physician Normal [facility] Comment on above: Result Comment: Elec tronically Signed By: Alex STEIN, [place].br\Date and Time Signed: 11/29/22 10:54 EDT RAD - Preliminary Cat Scan R eporton 11-29-2022 RAD - Preliminary Cat Scan Report [id number] #1.00CD:127 Normal [facility] Sed Rate Automatedon 023 Sed Rate Automated 17 mm/hr Normal 0-19 [facility] Comment on above: Performed By: #### 2 475039, 4157384, 2279367, 16833011, 37771762, 9549082, 84091477, 6751100, 09091136, 156866423, 0686244, 0004958 ####[facility] [address] [place] [address] TSH With T4fr Reflexon 11-29 TSH Qn 3.43 m[IU]/L Normal 0.34-5.60 [facility] Comment on above: Performed By: #### 2 839485, 4163618, 7396241, 05415909, 26895401, 6155190, 28972977, 9920705, 69366877, 100732812, 7536381, 8356160 ####[facility] [address] [place] [address] Troponin 6 Hr.on 11-29-2022 Troponin I.cardiac [Mass/Vol] 32.60 pg/mL Normal 15.90-38.40 [facility] Comment on above: Result Comment: The 95% CI (Confidence Interval) PPV (Positive Predictive Value) for myocardial infarction in females is 38 pg/mL, in males 51 pg/mL. The results should be used in conjunction with clinical conditions of myocardial infarction.(Access High Sensitivity Troponin I Instructions For Use, [employer], December 2017) Performed By: #### 1 0377559 ####[facility] [address] [place] [address] Troponin 9 Hr.on 11-29-2022 Troponin I.cardiac [Mass/Vol] 37.00 pg/mL Normal 15.90-38.40 [facility] Comment on above: Result Comment: The 95% CI (Confidence Interval) PPV (Positive Predictive Value) for myocardial infarction in females is 38 pg/mL, in males 51 pg/mL. The results should be used in conjunction with clinical conditions of myocardial infarction.(Access High Sensitivity Troponin I Instructions For Use, [employer], December 2017) Performed By: #### 1 6822800 ####[facility] [address] [place] [address] Vitamin D 25 Hydroxyon 11-29 25-hydroxyvitamin D3 [Mass/Vol] ng/mL Low 30.0-100.0 [facility] Comment on above: Result Comment: Vit palacios D deficiency has been defined as a level of serum 25-OH vitamin D less than 20 ng/mL (1,2) by the [place] [employer] and an Endocrine Society practice guideline. The Endocrine Society further defined vitamin D insufficiency as a level between 21 and 29 ng/mL (2). 1. IOM ([place] of Medicine). 2010. Dietary reference intakes for calcium and D. [place]: The National Academies Press. 2. Patricia MF, [place], Reji PETERS, et al. Evaluation, treatment, and prevention of vitamin D deficiency: an Endocrine Society clinical practice guideline. JCEM. 2010; 96 (7):1911-30. Performed By: #### 2 936631, 4668756, 8240834, 33759215, 30047210, 8913627, 69634688, 7387699, 87463098, 407284793, 4824746, 6372202 ####[facility] [address] [place] [address] eGFRon 11-29-2022 GFR/1.73 sq M.predicted among non-blacks MDRD (S/P/Bld) [Vol rate/Area] 69 mL/min/1.73 m2 Normal >=59 [facility] Comment on above: Order Comment: Order added by Discern Expert. Result Comment: Manager Recovery earnest kidney disease could be indicated at eGFR's of less than 60 mL/min/1.73m2. Kidney failure is indicated at less than 15 mL/min/1.73m2. Performed By: #### 2 268441, 3527389, 1729155, 03361565, 72983608, 8840905, 96490782, 3640629, 77321312, 979938842, 5594957, 8499564 ####[facility] [address] [place] [address] Auto Diffon 11-28-2022 Basophils/100 WBC (Bld) 0.7 % Normal 0.0-2.0 [facility] Comment on above: Order Comment: Order Added by Discern Expert. Performed By: #### 1 4527726, 2955904, 7628680, 0386581, 57084687 ####[address] [place] [address] Basophils/Leukocytes Auto (Bld) [Pure # fraction] 0.0 E9/L Normal 0.0-0.2 [facility] Comment on above: Order Comment: Order Added by Discern Expert. Performed By: #### 1 8011579, 6701514, 4045671, 7831622, 71124925 ####[address] [address] Eosinophils/100 WBC (Bld) 7.4 % Normal 0.0-8.0 [facility] Comment on above: Order Comment: Order Added by Discern Expert. Performed By: #### 1 0501953, 3786084, 6578088, 5970041, 45680768 ####[address] [address] Eosinophils/Leukocytes Auto (Bld) [Pure # fraction] 0.5 E9/L Normal 0.0-0.5 [facility] Comment on above: Order Comment: Order Added by Discern Expert. Performed By: #### 1 6471421, 5929847, 9085648, 9376282, 47814585 ####[address] [address] Lymphocytes/100 WBC (Bld) 9.3 % Low 14.0-50.0 [facility] Comment on above: Order Comment: Order Added by Bethany Expert. Performed By: #### 1 0634902, 9115147, 8680549, 4373546, 42781563 ####[address] [address] Lymphocytes/Leukocytes Auto (Bld) [Pure # fraction] 0.7 E9/L Low 1.0-4.0 [facility] Comment on above: Order Comment: Order Added by Bethany Expert. Performed By: #### 1 4379732, 2599641, 1074249, 3938425, 30553457 ####[address] [address] Monocytes/100 WBC (Bld) 6.6 % Normal 4.0-14.0 [facility] Comment on above: Order Comment: Order Added by Discern Expert. Performed By: #### 1 9878943, 6576538, 5938833, 6845889, 68493486 ####[facility] [address] [place] [address] Monocytes/Leukocytes Auto (Bld) [Pure # fraction] 0.5 E9/L Normal 0.2-1.0 [facility] Comment on above: Order Comment: Order Added by Discern Expert. Performed By: #### 1 7603845, 1262143, 7579265, 5309497, 37269782 ####[address] [place] [address] Neutrophils/100 WBC (Bld) 76.0 % High 36.0-75.0 [facility] Comment on above: Order Comment: Order Added by Bethany Expert. Performed By: #### 1 1184786, 5954230, 6544419, 1971686, 69187348 ####[facility] [address] [place] [address] Neutrophils/Leukocytes Auto (Bld) [Pure # fraction] 5.4 E9/L Normal 2.0-7.5 [facility] Comment on above: Order Comment: Order Added by Discern Expert. Performed By: #### 1 8108033, 1825871, 6453267, 0947760, 87292906 ####[facility] [address] [place] [address] BMPon 11-28-2022 Creatinine [Mass/Vol] 1.0 mg/dL Normal 0.5-1.3 [facility] Comment on above: Performed By: #### 1 8982089, 1866278, 7788497, 7496916, 65825234 ####[address] [place] [address] Urea nitrogen [Mass/Vol] 16 mg/dL Normal 5-21 [facility] Comment on above: Performed By: #### 1 6938990, 0891397, 7158830, 8601021, 39366243 ####[facility] [address] [address] Urea nitrogen/Creatinine [Mass ratio] 16 No Units Normal 10-20 [facility] Comment on above: Performed By: #### 1 4815567, 1467567, 9774265, 8381342, 74276841 ####[facility] [address] [place] [address] Anion gap [Moles/Vol] 10 mmol/L Normal 6-16 [facility] Comment on above: Performed By: #### 1 9262362, 4306791, 5696980, 5918814, 87564226 ####[facility] [address] [place] [address] Calcium [Mass/Vol] 8.8 mg/dL Low 8.9-11.1 [facility] Comment on above: Performed By: #### 1 2402612, 2007737, 9226618, 9584329, 34598578 ####[facility] [address] [place] [address] Chloride [Moles/Vol] 105 mmol/L Normal 101-111 [facility] Comment on above: Performed By: #### 1 7039822, 5237609, 2219796, 3770454, 46235719 ####[facility] [address] [place] [address] CO2 [Moles/Vol] 28 mmol/L Normal 21-31 [facility] Comment on above: Performed By: #### 1 9927077, 9926951, 9889937, 6436666, 73747661 ####[facility] [address] [address] Glucose [Mass/Vol] 114 mg/dL Normal 55-199 [facility] Comment on above: Result Comment: If t his glucose result represents a fasting glucose, interpretation should refer to the following reference range: 55-99 mg/dL Performed By: #### 1 5425019, 2488484, 6793618, 0508442, 71391751 ####[facility] [address]Norst[address] [place] [address] Potassium [Moles/Vol] 4.1 mmol/L Normal 3.5-5.3 [facility] Comment on above: Performed By: #### 1 1374016, 4394862, 9668683, 0980444, 21373442 ####[facility] [address] [place] [address] Sodium [Moles/Vol] 139 mmol/L Normal 135-145 [facility] Comment on above: Performed By: #### 1 4135674, 8143616, 4087039, 1273399, 79518664 ####[facility] [address] [place] [address] Blood Gas Art, with Lytes, G christal, [place] 11-28-2022 a/A Ratio Art 53.40 % Normal >=0.80 [facility] Comment on above: Performed By: #### 4 [id number] ####[facility] [address] [place] [address] AaDO2 Art 64.9 mmHg High 5.0-15.0 [facility] Comment on above: Performed By: #### 4 [id number] ####[facility] [address] [place] [address] Allens Test Positive Normal [facility] Comment on above: Performed By: #### 4 [id number] ####[facility] [address] [place] [address] Base Excess Arterial 2.9 mmol/L Normal >=2.8 Amado [facility] Comment on above: Performed By: #### 4 [id number] ####[facility] [address] [place] [address] cCa2+ Art 4.88 mg/dL Normal 4.40-5.30 [facility] Comment on above: Performed By: #### 4 [id number] ####[facility] [address] [place] [address] cCl- Art 103.0 mmol/L Normal 101.0-111.0 [facility] Comment on above: Performed By: #### 4 [id number] ####[facility] [address] [place] [address] cGlu Art 98 mg/dL Normal 55-99 [facility] Comment on above: Performed By: #### 4 [id number] ####[facility] [address] [place] [address] cK+ Art 3.6 mmol/L Normal 3.5-5.3 [facility] Comment on above: Performed By: #### 4 [id number] ####[place] [address] [place] [address] cLac Art .6 mmol/L Normal .5-2.2 [facility] Comment on above: Performed By: #### 4 [id number] ####[address] [place] [address] bufferer+ Art 139.0 mmol/L Normal 135.0-145.0 [facility] Comment on above: Performed By: #### 4 [id number] ####[address] [place] [address] Drawn by nmb Invalid Interpretation Code [facility] Comment on above: Performed By: #### 4 [id number] ####[address] [address] [place] [address] FCOHb Art 1.5 % Normal 1.5-4.9 [facility] Comment on above: Result Comment: Refe rence rangeNonsmoker <1.5%Smoker <5.0%Heavy Smoker <9.0% Performed By: #### 4 [id number] ####[facility] [address] [place] [address] FIO2 BG 28 Invalid Interpretation Code [facility] Comment on above: Performed By: #### 4 [id number] ####[facility] [address] [place] [address] Flow 2 Invalid Interpretation Code [facility] Comment on above: Performed By: #### 4 [id number] ####[facility] [address] [place] [address] FMetHb Art 0.3 % Normal 0.0-1.9 [facility] Comment on above: Performed By: #### 4 [id number] ####[address] [address] FO2Hb Art 93.7 % Normal 93.0-100.0 [facility] Comment on above: Performed By: #### 4 13886449 ####[address] [address] HCO3 (Bld) [Moles/Vol] 26.9 mmol/L High 22.0-26.0 [facility] Comment on above: Performed By: #### 4 [id number] ####[address] [address] Hemoglobin (Bld) [Mass/Vol] 11.9 g/dL Low 12.0-17.0 [facility] Comment on above: Performed By: #### 4 [id number] ####[address] [address] Oxygen saturation in Blood 95.4 % Normal 95.0-100.0 [facility] Comment on above: Performed By: #### 4 68992299 ####[address] [address] P CO2 Arterial 47.6 mmHg High 35.0-45.0 [facility] Comment on above: Performed By: #### 4 [id number] ####[address] [address] P O2 Arterial 74.3 mmHg Low 80.0-100.0 [facility] Comment on above: Performed By: #### 4 [id number] ####[address] [place] [address] pH Arterial 7.387 Normal 7.350-7.450 [facility] Comment on above: Performed By: #### 4 [id number] ####[address] [address] Sample Site R Radial Normal [facility] Comment on above: Performed By: #### 4 [id number] ####[facility] [address] [place] [address] Sample Type Arterial Draw Normal [facility] Comment on above: Performed By: #### 4 [id number] ####[facility] [address] [place] [id number] CBC w/ Auto Diffon 3 Erythrocyte distribution width (RBC) [Ratio] 14.8 % High 10.9-14.2 [facility] Comment on above: Performed By: #### 1 4321115, 4769808, 9011798, 0018789, 20234016 ####[address] [place] [address]657 Hematocrit (Bld) [Volume fraction] 37.3 % Low 37.7-49.0 [facility] Comment on above: Performed By: #### 1 2449153, 8737972, 8471327, 0185223, 77712942 ####[facility] [address] [place] 9[address]657 Hemoglobin (Bld) [Mass/Vol] 12.3 g/dL Low 13.5-17.5 [facility] Comment on above: Performed By: #### 1 4231472, 2459582, 4397409, 4036709, 70103745 ####[facility] [address] [place] 9[address]657 MCH (RBC) [Entitic mass] 28.3 pg Normal 27.0-34.0 [facility] Comment on above: Performed By: #### 1 6912426, 1610617, 0660798, 3537872, 34124767 ####[facility] [address] [place] [address] MCHC (RBC) [Mass/Vol] 33.0 g/dL Normal 31.4-36.0 [facility] Comment on above: Performed By: #### 1 9220782, 7226516, 1293278, 1609984, 34287911 ####[facility] [address] [place] [address] MCV (RBC) [Entitic vol] 85.9 fL Normal 80.0-100.0 [facility] Comment on above: Performed By: #### 1 4362542, 3644835, 1370080, 9751404, 40136570 ####[address] [place] [address] Platelet mean volume (Bld) [Entitic vol] 10.4 fL Normal 6.4-10.8 [facility] Comment on above: Performed By: #### 1 9649073, 0955173, 0026710, 1156525, 41632018 ####[address] [address] Platelets (Bld) [#/Vol] 189.0 E9/L Normal 150.0-500.0 [facility] Comment on above: Performed By: #### 1 1687502, 4091154, 5036837, 7762815, 21184482 ####[address] [address] RBC (Bld) [#/Vol] 4.3 E12/L Normal 4.3-5.9 [facility] Comment on above: Performed By: #### 1 7517102, 6877430, 9557383, 4100575, 83071912 ####[address] [address] WBC corrected for nucl RBC Auto (Bld) [#/Vol] 7.1 E9/L Normal 4.0-11.0 [facility] Comment on above: Performed By: #### 1 4063112, 7102478, 2911089, 1836212, 74858887 ####[address] [address] CHEMISTRYOrdered By: SYSTEM SYSTEM on 11-28-2022 Troponin I.cardiac [Mass/Vol] 32.60 pg/mL Normal 15.90 - 38.40 pg/mL [facility] Trop[facility] I.cardiac [Mass/Vol] 26.90 pg/mL Normal 15.90 - 38.40 pg/mL [facility] Remisol Consent for Treatmenton Consent for Treatment [id number]#1 .00CD:127 Normal [facility] ED Note-Physicianon 11-29-19 ED Note-Physician Normal [facility] Comment on above: Result Comment: [...] - 2.2 mmol/L FT Resp Auto SS bufferer+ Art 139.0 mmol/L Normal 135.0 - 145.0 [...] 26.9 mmol/L High 22.0 - 26.0 mmol/L [facility] Resp Auto SS Hemoglobin (Bld) [Mass/Vol] 11.9 g/dL Low 12.0 - 17.0 gm/dL [facility] Resp Auto SS P CO2 Arterial 47.6 mm[Hg] High 35.0 - 45.0 mmHg [facility] Resp Auto SS P O2 Arterial 74.3 mm[Hg] Low 80.0 - 100.0 mmHg FT Resp Auto SS pH Arterial 7.387 Normal 7.350 - 7.450 [facility] Resp Auto SS Sample Site R Radial (11/28/22 6:55 PM) Normal [facility] Resp Auto SS Sample Type Arterial Draw (11/28/22 6:55 PM) Normal [facility] Resp Auto SS HEMATOLOGYOrdered By: SYSTEM SYSTEM [...] [facility] HemeAutoSS Pre-Arrival Noteon Pre-Arrival Note Normal [facility] Troponin 0 Hr.on 11-28-2022 Troponin I.cardiac [Mass/Vol] 21.80 pg/mL Normal 15.90-38.40 [facility] Comment on above: Result Comment: The 95% CI (Confidence Interval) PPV (Positive Predictive Value) for myocardial infarction in females is 38 pg/mL, in males 51 pg/mL. The results should be used in conjunction with clinical conditions of myocardial infarction.(Access High Sensitivity Troponin I Instructions For Use, Claudia Luis, December 2017) Performed By: #### 1 1673769, 0909763, 9460115, 7877848, 67024526 ####[facility] [address] [place] [address] Troponin 3 Hr.on 11-28-2022 Troponin I.cardiac [Mass/Vol] 26.90 pg/mL Normal 15.90-38.40 [facility] Comment on above: Result Comment: The 95% CI (Confidence Interval) PPV (Positive Predictive Value) for myocardial infarction in females is 38 pg/mL, in males 51 pg/mL. The results should be used in conjunction with clinical conditions of myocardial infarction.(Access High Sensitivity Troponin I Instructions For Use, Claudia [place], December 2017) Performed By: #### 1 [id number] ####[address] [place] [address] UA With Cult Reflexon 2022 Crystals LM Ql (Urine sed) Present Normal [facility] Comment on above: Performed By: #### 1 6568882 ####[place] [address] Epithelial cells.squamous LM.HPF (Urine sed) [#/Area] 0-2 Normal 0-2 [facility] Comment on above: Performed By: #### 1 2146012 ####[place] [address] Fircrest.plasma/Fircrest.R BC (Bld) [Mass ratio] 0-3 Normal 0-3 [facility] Comment on above: Performed By: #### 1 7628347 ####[address] [address] Mucus Ql (Urine sed) TRACE Normal [facility] Comment on above: Performed By: #### 1 2808925 ####[address] [address] WBC LM.HPF (Urine sed) [#/Area] 0-5 Normal 0-5 [facility] Comment on above: Performed By: #### 1 1843166 ####[address] [address] Bilirubin Ql (U) Negative Normal Negative [facility] Comment on above: Performed By: #### 1 3946798 ####[address] [address] Clarity (U) CLEAR Normal Clear [facility] Comment on above: Performed By: #### 1 1061663 ####[facility] [address] [place] [address] Color (U) YELLOW Normal Yellow [facility] Comment on above: Performed By: #### 1 6001323 ####[facility] [address] [place] [address] Glucose Test strip (U) [Mass/Vol] Negative Normal Negative [facility] Comment on above: Performed By: #### 1 5090670 ####[facility] [address] [place] [address] Hemoglobin Ql (U) Negative Normal Negative [facility] Comment on above: Performed By: #### 1 3533569 ####[facility] [address] [place] [address] Ketones (U) [Mass/Vol] Negative Normal Negative [facility] Comment on above: Performed By: #### 1 4647964 ####[facility] [address] [place] [address] Nitrite Ql (U) Negative Normal Negative [facility] Comment on above: Performed By: #### 1 4928140 ####[facility] [address] [place] [address] pH (U) 6.0 [pH] Invalid Interpretation Code 5.0-9.0 [facility] Comment on above: Performed By: #### 1 2959609 ####[facility] [address] [place] [address] Protein (U) [Mass/Vol] 2+ Abnormal Negative [facility] Comment on above: Performed By: #### 1 5531456 ####[address] [place] [address] Specific gravity (U) [Rel density] 1.025 Invalid Interpretation Code 1.005-1.030 [facility] Comment on above: Performed By: #### 1 3811106 ####[address] [place] [address] Type of Urine collection method Clean Catch Normal [facility] Comment on above: Performed By: #### 1 9752327 ####[facility] [address] [place] [address] Urobilinogen Qn (U) 0.2 {Lei'U}/dL Normal 0.0-1.0 [facility] Comment on above: Performed By: #### 1 3748066 ####[facility] [address] [place] [address] WBC Auto Ql (U) Negative Normal Negative [facility] Comment on above: Performed By: #### 1 3962019 ####[facility] [address] [place] [address] URINALYSISOrdered By: Emily Suero on 11-28-2022 Bilirubin [...] PM) Normal Negative [facility] UA Auto SS Fircrest.plasma/Fircrest.R BC (Bld) [Mass ratio] 0-3 /HPF Normal [...] FT UA Auto SS Urobilinogen Qn (U) 0.8232824 {Lei'U}/dL Normal 0.0 - 1.0 EU/dL FT UA Auto SS WBC Auto Ql (U) Negative (11/28/22 5:55 PM) Normal Negative [facility] UA Auto SS WBC LM.HPF (Urine sed) [#/Area] 0-5 /HPF Normal 0-5/HPF FT UA Auto SS XR Chest Single Viewon 11-28 XR Chest Single View Normal [facility] eGFRon 11-28-2022 GFR/1.73 sq M.predicted among non-blacks MDRD (S/P/Bld) [Vol rate/Area] 77 mL/min/1.73 m2 Normal >=59 [facility] Comment on above: Order Comment: Order added by Discern Expert. Result Comment: Manager Recovery earnest kidney disease could be indicated at eGFR's of less than 60 mL/min/1.73m2. Kidney failure is indicated at less than 15 mL/min/1.73m2. Performed By: #### 1 7159017, 6180450, 5949820, 4866444, 21178171 ####[facility] [address] [place] [address] CHEMISTRYOrdered By: SYSTEM SYSTEM on 11-26-2022 Albumin [...] 87 mL/min/1.73 m2 Normal >=59mL/min/ 1.73 m2 [facility] Chem S Globulin (S) [Mass/Vol] 3.2 g/dL [...] 2.07 m[IU]/L Normal 0.34 - 5.60 mcIU/mL [facility] Remisol Urea nitrogen [Mass/Vol] 18 mg/dL Normal 5 - 21 mg/dL [facility] Remisol Urea nitrogen/Creatinine [Mass ratio] 20 mg/mg Normal 10 - 20 [facility] Remisol CMPon 11-26-2022 Albumin [Mass/Vol] 3.7 g/dL Normal 3.3-5.0 [facility] Comment on above: Performed By: #### 2 519001, 5269300, 47486326, 8211915 ####[facility] [address] [place] [address] Albumin/Globulin (S) [Mass conc ratio] 1.2 Normal 1.1-2.2 [facility] Comment on above: Performed By: #### 2 010421, 6059524, 14365535, 4352682 ####[facility] [address] [place] [address] ALP [Catalytic activity/Vol] 38 Int._Unit/L Normal 21-98 [facility] Comment on above: Performed By: #### 2 824418, 2554089, 41724766, 4284285 ####[facility] [address] [place] [address] ALT No additional P-5'-P [Catalytic activity/Vol] 11 Int._Unit/L Normal 6-46 [facility] Comment on above: Performed By: #### 2 834941, 0005971, 28347819, 7302393 ####[facility] [address] [place] [address] Anion gap [Moles/Vol] 14 mmol/L Normal 6-16 [facility] Comment on above: Performed By: #### 2 171444, 2999625, 15104069, 6955915 ####[facility] [address] [place] [address] AST [Catalytic activity/Vol] 15 Int._Unit/L Normal 5-43 [facility] Comment on above: Performed By: #### 2 577744, 0834812, 90297824, 1650775 ####[facility] [address] [place] [address] Bilirubin [Mass/Vol] 1.0 mg/dL Normal 0.0-1.1 [facility] Comment on above: Performed By: #### 2 777699, 3500746, 35526419, 4235115 ####[facility] [address] [place] [address] Calcium [Mass/Vol] 9.2 mg/dL Normal 8.9-11.1 [facility] Comment on above: Performed By: #### 2 670734, 2287793, 83876490, 5295714 ####[facility] [address] [place] [address] Chloride [Moles/Vol] 107 mmol/L Normal 101-111 [facility] Comment on above: Performed By: #### 2 419011, 8072411, 31150804, 5938627 ####[facility] [address] [place] [address] CO2 [Moles/Vol] 28 mmol/L Normal 21-31 [facility] Comment on above: Performed By: #### 2 037827, 8884421, 51555890, 9125671 ####[facility] [address] [place] [address] Creatinine [Mass/Vol] 0.9 mg/dL Normal 0.5-1.3 [facility] Comment on above: Performed By: #### 2 866994, 3812463, 13053264, 9680513 ####[facility] [address] [place] [address] Globulin (S) [Mass/Vol] 3.2 g/dL Normal 1.4-4.0 [facility] Comment on above: Performed By: #### 2 876489, 5487675, 25338695, 0436219 ####[facility] [address] [place] [address] Glucose [Mass/Vol] 95 mg/dL Normal 55-199 [facility] Comment on above: Result Comment: If t his glucose result represents a fasting glucose, interpretation should refer to the following reference range: 55-99 mg/dL Performed By: #### 2 411752, 0529364, 62250834, 3586013 ####[facility] [address] [place] [address] Potassium [Moles/Vol] 4.2 mmol/L Normal 3.5-5.3 [facility] Comment on above: Performed By: #### 2 358123, 5945337, 44095264, 2039522 ####[facility] [address] [place] [address] Protein [Mass/Vol] 6.9 g/dL Normal 6.0-7.8 [facility] Comment on above: Performed By: #### 2 521983, 4279485, 10305040, 9428929 ####[facility] [address] [place] [address] Sodium [Moles/Vol] 145 mmol/L Normal 135-145 [facility] Comment on above: Performed By: #### 2 214660, 1763650, 98593937, 8548229 ####[facility] [address] [place] [address] Urea nitrogen [Mass/Vol] 18 mg/dL Normal 5-21 [facility] Comment on above: Performed By: #### 2 997188, 0772992, 05307733, 1016788 ####[facility] [address] [place] [address] Urea nitrogen/Creatinine [Mass ratio] 20 No Units Normal 10-20 [facility] Comment on above: Performed By: #### 2 334233, 0142662, 32469541, 4966861 ####[facility] [address] [place] [address] Consent for Treatmenton 07-0 Consent for Treatment [id number] [facility] [id number]#1 .00CD:127 Normal [facility] Lipid Panelon 11-26-2022 Cholesterol [Mass/Vol] 112 mg/dL Low 120-200 [facility] Comment on above: Performed By: #### 2 193604, 1793922, 85861662, 3546805 ####[facility] [address] [place] [address] Cholesterol in HDL [Mass/Vol] 49 mg/dL Invalid Interpretation Code [facility] Comment on above: Result Comment: HDL > or equal to 60 mg/dL: Low cardiovascular riskHDL < 40 mg/dL : High cardiovascular risk Performed By: #### 2 431192, 6228964, 51384816, 1508869 ####[facility] [address] [place] [address] Cholesterol in LDL [Mass/Vol] 42 mg/dL Normal <=129 [facility] Comment on above: Performed By: #### 2 111020, 2260290, 64351941, 6964829 ####[facility] [address] [place] [address] Cholesterol in VLDL [Mass/Vol] 14 mg/dL Normal 7-40 [facility] Comment on above: Performed By: #### 2 019827, 1820238, 53331890, 6760624 ####[facility] [address] [place] [address] Triglyceride [Mass/Vol] 69 mg/dL Normal <=149 [facility] Comment on above: Performed By: #### 2 202109, 5876828, 13942997, 0326774 ####[facility] [address] [place] [address] Physician Orderon 11-26-2022 Physician Order [id number]# 1.00CD:127 Normal [facility] TSHon 11-26-2022 TSH Qn 2.07 m[IU]/L Normal 0.34-5.60 [facility] Comment on above: Performed By: #### 2 953266, 4162062, 24412357, 8041738 ####[facility] [address] [place] [address] eGFRon 11-26-2022 GFR/1.73 sq M.predicted among non-blacks MDRD (S/P/Bld) [Vol rate/Area] 87 mL/min/1.73 m2 Normal >=59 [facility] Comment on above: Order Comment: Order added by Discern Expert. Result Comment: Manager Recovery earnest kidney disease could be indicated at eGFR's of less than 60 mL/min/1.73m2. Kidney failure is indicated at less than 15 mL/min/1.73m2. Performed By: #### 2 096736, 6252992, 48275196, 3618426 ####[facility] [address] [place] [address] Discharge Instructionson Discharge Instructions [id number]#1 .00CD:127 Normal [facility] Transfer Documentson 023 Transfer Documents [id number]#1 .00CD:127 Normal [facility] Capillary Glucose POCon Glucose [Mass/Vol] 166 mg/dL High 55-99 [facility] Comment on above: Result Comment: Gareth guerrero RN/ Performed By: #### 2 55023890 ####[facility] [address] [place] [address] Glucose [Mass/Vol] 119 mg/dL High 55-99 [facility] Comment on above: Result Comment: Repe at Test Performed By: #### 2 44890537 ####[facility] [address] [place] [address] Discharge Note-Nursingon Discharge Note-Nursing Normal [facility] TrhY4fdl 09-28-2022 HbA1c (Bld) [Mass fraction] 6.4 % High <=5.9 [facility] Comment on above: Order Comment: IF UN ABLE TO ADD TO ED LABS Performed By: #### 2 978746, [id number] ####[facility] [address] [place] [address] Inpatient Clinical Summaryon 09-28-2022 Inpatient Clinical Summary Normal [facility] Inpatient Patient Summaryon 09-28-2022 Inpatient Patient Summary Normal [facility] Inpatient Patient Summary Normal [facility] Interdisciplinary Note - Santosh e Manageron 09-28-2022 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 Normal [facility] Comment on above: Result Comment: Elec tronically Signed By: Jose HAYDEN, Norma\.br\Date and Time Signed: 09/28/22 15:54 EDT Monitor Recordon 09-28-2022 Monitor Record [id number]# 1.00CD:127 Normal [facility] Capillary Glucose POCon Glucose [Mass/Vol] 192 mg/dL High 55-99 [facility] Comment on above: Result Comment: Gareth GARDINER Performed By: #### 2 29221846 ####[facility] [address] [place] [address] Glucose [Mass/Vol] 130 mg/dL High 55-99 [facility] Comment on above: Result Comment: No C overage Given Performed By: #### 2 24389235 ####[facility] [address] [place] [address] Glucose [Mass/Vol] 202 mg/dL High 55-99 [facility] Comment on above: Result Comment: Gareth GARDINER Performed By: #### 2 35500627 ####[facility] [address] [place] [address] Glucose [Mass/Vol] 89 mg/dL Normal 55-99 [facility] Comment on above: Result Comment: Gareth GARDINER Performed By: #### 2 29605543 ####[facility] [address] [place] [address] Insurance Correspondence Off iceon 09-27-2022 Insurance Correspondence Office [id number]# 1.00CD:127 Normal [facility] Interdisciplinary Note - Santosh e Manageron 09-27-2022 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 Normal [facility] Comment on above: Result Comment: Elec tronically Signed By: Natalie Grant\Date and Time Signed: 09/27/22 14:56 EDT Interdisciplinary Note - PTo n 09-27-2022 Interdisciplinary Note - PT Pt is safe and indep w/bed mobility, transfers and gait w/FWW. Pt uses FWW at home; he is at his baseline. NO PT needs at this time. No needs anticipated upon d/c home. AM-PAC [facility] Lyteson 09-27-2022 Anion gap [Moles/Vol] 9 mmol/L Normal 6-16 [facility] Comment on above: Performed By: #### 2 [id number], [id number] ####[facility] [address] [place] [address] Chloride [Moles/Vol] 105 mmol/L Normal 101-111 [facility] Comment on above: Performed By: #### 2 [id number], [id number] ####[facility] [address] [place] [address] CO2 [Moles/Vol] 26 mmol/L Normal 21-31 [facility] Comment on above: Performed By: #### 2 189892, [id number] ####[facility] [address] [place] [address] Potassium [Moles/Vol] 4.2 mmol/L Normal 3.5-5.3 [facility] Comment on above: Performed By: #### 2 196058, [id number] ####[facility] [address] [place] [address] Sodium [Moles/Vol] 136 mmol/L Normal 135-145 [facility] Comment on above: Performed By: #### 2 089739, [id number] ####[facility] [address] [place] [address] Monitor Recordon 09-27-2022 Monitor Record [id number]# 1.00CD:127 Normal [facility] Monitor Record [id number]# 1.00CD:127 Normal [facility] Progress Note-Nurseon 2022 Progress Note-Nurse Normal [facility] Progress Note-Physicianon Progress Note-Physician Normal [facility] Comment on above: Result Comment: Elec tronically Signed By: Adeline COLEMAN\.br\Date and Time Signed: 09/27/22 15:34 EDT\.br\Electronically Co-Signed By: Adeline COLEMAN\.br\Date and Time Co-Signed: 09/27/22 15:37 EDT\.br\Electronically Co-Signed By: Ganesh Minaya MD\.br\Date and Time Co-Signed: 09/27/22 18:58 EDT Auto Diffon 09-26-2022 Basophils/100 WBC (Bld) 0.5 % Normal 0.0-2.0 [facility] Comment on above: Order Comment: Order Added by Discern Expert. Performed By: #### 1 0508589, 6909960, 7700207, 3379278 ####[facility] [address] [place] [address] Basophils/Leukocytes Auto (Bld) [Pure # fraction] 0.0 E9/L Normal 0.0-0.2 [facility] Comment on above: Order Comment: Order Added by Discern Expert. Performed By: #### 1 5218936, 4321804, 3899480, 0006145 ####[facility] [address] [place] [address] Eosinophils/100 WBC (Bld) 3.3 % Normal 0.0-8.0 [facility] Comment on above: Order Comment: Order Added by Discern Expert. Performed By: #### 1 5104509, 4318328, 8750473, 1376595 ####[address] [place] [address] Eosinophils/Leukocytes Auto (Bld) [Pure # fraction] 0.3 E9/L Normal 0.0-0.5 [facility] Comment on above: Order Comment: Order Added by Discern Expert. Performed By: #### 1 2703504, 4137255, 8701340, 6832483 ####[facility] [address] [place] [address] Lymphocytes/100 WBC (Bld) 9.5 % Low 14.0-50.0 [facility] Comment on above: Order Comment: Order Added by Discern Expert. Performed By: #### 1 1389636, 7721608, 3751515, 5699434 ####[address] [place] [address] Lymphocytes/Leukocytes Auto (Bld) [Pure # fraction] 0.8 E9/L Low 1.0-4.0 [facility] Comment on above: Order Comment: Order Added by Discern Expert. Performed By: #### 1 7402011, 1878121, 5055289, 8476624 ####[address] [place] [address] Monocytes/100 WBC (Bld) 7.2 % Normal 4.0-14.0 [facility] Comment on above: Order Comment: Order Added by Discern Expert. Performed By: #### 1 1411817, 7170027, 8533249, 2740184 ####[address] [place] [address] Monocytes/Leukocytes Auto (Bld) [Pure # fraction] 0.6 E9/L Normal 0.2-1.0 [facility] Comment on above: Order Comment: Order Added by Discern Expert. Performed By: #### 1 4196802, 1630805, 6790257, 3052073 ####[address] [place] [address] Neutrophils/100 WBC (Bld) 79.5 % High 36.0-75.0 [facility] Comment on above: Order Comment: Order Added by Discern Expert. Performed By: #### 1 0726418, 9116423, 0779158, 8882730 ####[facility] [address] [place] [address] Neutrophils/Leukocytes Auto (Bld) [Pure # fraction] 6.7 E9/L Normal 2.0-7.5 [facility] Comment on above: Order Comment: Order Added by Discern Expert. Performed By: #### 1 5138065, 2595143, 7371424, 8272688 ####[facility] [address] [place] [address] BMPon 09-26-2022 Creatinine [Mass/Vol] 1.0 mg/dL Normal 0.5-1.3 [facility] Comment on above: Performed By: #### 1 5538721, 8564417, 0025035, 3689192 ####[facility] [address] [place] [address] Urea nitrogen [Mass/Vol] 25 mg/dL High 5-21 [facility] Comment on above: Performed By: #### 1 3834154, 8042475, 7574307, 6039186 ####[facility] [address] [place] [address] Urea nitrogen/Creatinine [Mass ratio] 25 No Units High 10-20 [facility] Comment on above: Performed By: #### 1 4570692, 8172846, 4170545, 2190143 ####[facility] [address] [place] [address] Anion gap [Moles/Vol] 10 mmol/L Normal 6-16 [facility] Comment on above: Performed By: #### 1 4355610, 4139181, 4371486, 2001975 ####[facility] [address] [place] [address] Calcium [Mass/Vol] 8.9 mg/dL Normal 8.9-11.1 [facility] Comment on above: Performed By: #### 1 7117349, 6080582, 2511043, 3256336 ####[facility] [address] [place] [address] Chloride [Moles/Vol] 101 mmol/L Normal 101-111 [facility] Comment on above: Performed By: #### 1 3175037, 9463948, 9960788, 7757748 ####[facility] [address] [place] [address] CO2 [Moles/Vol] 26 mmol/L Normal 21-31 [facility] Comment on above: Performed By: #### 1 8935636, 1141013, 3290269, 3097089 ####[facility] [address] [place] [address] Glucose [Mass/Vol] 112 mg/dL Normal 55-199 [facility] Comment on above: Result Comment: If t his glucose result represents a fasting glucose, interpretation should refer to the following reference range: 55-99 mg/dL Performed By: #### 1 9406190, 6158235, 7588500, 5677822 ####[facility] [address] [place] [address] Potassium [Moles/Vol] 4.1 mmol/L Normal 3.5-5.3 [facility] Comment on above: Performed By: #### 1 4248883, 7879290, 8524849, 6109135 ####[facility] [address] [place] [address] Sodium [Moles/Vol] 133 mmol/L Low 135-145 [facility] Comment on above: Performed By: #### 1 9255788, 6771622, 2359371, 6255681 ####[facility] [address] [place] [address] CBC w/ Auto Diffon 3 Erythrocyte distribution width (RBC) [Ratio] 14.6 % High 10.9-14.2 [facility] Comment on above: Performed By: #### 1 9627118, 4805983, 5107815, 5186162 ####[facility] [address] [place] [address] Hematocrit (Bld) [Volume fraction] 37.6 % Low 37.7-49.0 [facility] Comment on above: Performed By: #### 1 6202795, 9580116, 3636676, 8301818 ####[facility] [address] [place] [address] Hemoglobin (Bld) [Mass/Vol] 12.5 g/dL Low 13.5-17.5 [facility] Comment on above: Performed By: #### 1 7286077, 2695779, 1304647, 6545680 ####[address] [address] MCH (RBC) [Entitic mass] 28.5 pg Normal 27.0-34.0 [facility] Comment on above: Performed By: #### 1 4492186, 1837667, 2537445, 5109790 ####[address] [address] MCHC (RBC) [Mass/Vol] 33.2 g/dL Normal 31.4-36.0 [facility] Comment on above: Performed By: #### 1 2828850, 2508335, 6712582, 2216752 ####[address] [address] MCV (RBC) [Entitic vol] 85.8 fL Normal 80.0-100.0 [facility] Comment on above: Performed By: #### 1 1183731, 4221906, 9072503, 5580667 ####[address] [address] Platelet mean volume (Bld) [Entitic vol] 10.3 fL Normal 6.4-10.8 [facility] Comment on above: Performed By: #### 1 5966831, 3304207, 6016358, 3161019 ####[address] [address] Platelets (Bld) [#/Vol] 164.0 E9/L Normal 150.0-500.0 [facility] Comment on above: Performed By: #### 1 8683520, 9804459, 0489878, 6943872 ####[address] [address] RBC (Bld) [#/Vol] 4.4 E12/L Normal 4.3-5.9 [facility] Comment on above: Performed By: #### 1 7411459, 7089579, 9768936, 2096421 ####[facility] [address] [place] [address] WBC corrected for nucl RBC Auto (Bld) [#/Vol] 8.4 E9/L Normal 4.0-11.0 [facility] Comment on above: Performed By: #### 1 3888113, 9549002, 1066955, 5048339 ####[facility] [address] [place] [address] Capillary Glucose POCon Glucose [Mass/Vol] 161 mg/dL High 55-99 [facility] Comment on above: Result Comment: Gareth guerrero RN/MD Performed By: #### 2 25365215 ####[facility] [address] [place] [address] Consent for Treatmenton Consent for Treatment [id number] .00CD:127 Normal [facility] ED Clinical Summaryon 2022 ED Clinical Summary Normal [facility] ED Note-Physicianon 09-27-19 ED Note-Physician Normal [facility] Comment on above: Result Comment: Elec tronically Signed By: Shane Pan DO\.br\Date and Time Signed: 09/26/22 16:06 EDT ED Patient Education Noteon 09-26-2022 ED Patient Education Note Normal [facility] ED Patient Summaryon 023 ED Patient Summary Normal [facility] EMS Documentationon 09-27-19 EMS Documentation Normal [facility] EMS Documentation Normal [facility] Pre-Arrival Noteon Pre-Arrival Note Normal [facility] Progress Noteson 09-26-2022 Accounting Administrator Authentication Interface Message Text EMERGENCY TRIAGE, TREAT AND TRANSPORT (ET3) DOCUMENTATION OF TELEHEALTH VISIT Date / Time: 09/26/2022929 Name: Clyde Humphrey : 1945 SSN: [id number] EMS Agency: [facility] [x] Verbal consent obtained [] [...] Completed by: Coby Lugo MD Normal [employer] UA With Cult Reflexon 2022 Bilirubin Ql (U) Negative Normal Negative [facility] Comment on above: Order Comment: can s traight cath if needed. Performed By: #### 1 5721555 ####[facility] [address] [place] [address] Clarity (U) CLEAR Normal Clear [facility] Comment on above: Order Comment: can s traight cath if needed. Performed By: #### 1 2042269 ####[facility] [address] [place] [address] Color (U) YELLOW Normal Yellow [facility] Comment on above: Order Comment: can s traight cath if needed. Performed By: #### 1 9296072 ####[facility] [address] [place] [address] Epithelial cells.squamous LM.HPF (Urine sed) [#/Area] 0-2 Normal 0-2 [facility] Comment on above: Order Comment: can s traight cath if needed. Performed By: #### 1 0205507 ####[facility] [address] [place] [address] Glucose Test strip (U) [Mass/Vol] Negative Normal Negative [facility] Comment on above: Order Comment: can s traight cath if needed. Performed By: #### 1 6022111 ####[facility] [address] [place] [address] Hemoglobin Ql (U) Negative Normal Negative [facility] Comment on above: Order Comment: can s traight cath if needed. Performed By: #### 1 0574347 ####[facility] [address] [place] [address] Ketones (U) [Mass/Vol] Negative Normal Negative [facility] Comment on above: Order Comment: can s traight cath if needed. Performed By: #### 1 5391588 ####[facility] [address] [place] [address] Fircrest.plasma/Fircrest.R BC (Bld) [Mass ratio] 0-3 Normal 0-3 [facility] Comment on above: Order Comment: can s traight cath if needed. Performed By: #### 1 1329800 ####[facility] [address] [place] [address] Nitrite Ql (U) Negative Normal Negative [facility] Comment on above: Order Comment: can s traight cath if needed. Performed By: #### 1 1190093 ####[facility] [address] [place] [address] pH (U) 5.5 [pH] Invalid Interpretation Code 5.0-9.0 [facility] Comment on above: Order Comment: can s traight cath if needed. Performed By: #### 1 8961278 ####[facility] [address] [place] [address] Protein (U) [Mass/Vol] Negative Normal Negative [facility] Comment on above: Order Comment: can s traight cath if needed. Performed By: #### 1 7147916 ####[facility] [address] [place] [address] Specific gravity (U) [Rel density] 1.025 Invalid Interpretation Code 1.005-1.030 [facility] Comment on above: Order Comment: can s traight cath if needed. Performed By: #### 1 3508249 ####[address] [address] Type of Urine collection method Clean Catch Normal [facility] Comment on above: Order Comment: can s traight cath if needed. Performed By: #### 1 3178937 ####[address] Urobilinogen Qn (U) 1.0 {Lei'U}/dL Normal 0.0-1.0 [facility] Comment on above: Order Comment: can s traight cath if needed. Performed By: #### 1 7859412 ####[facility] [address] [place], [place] [address] WBC Auto Ql (U) Negative Normal Negative [facility] Comment on above: Order Comment: can s traight cath if needed. Performed By: #### 1 4388762 ####[address] WBC LM.HPF (Urine sed) [#/Area] 0-5 Normal 0-5 [facility] Comment on above: Order Comment: can s traight cath if needed. Performed By: #### 1 6255979 ####[address] [address] XR Chest Single Viewon 09-26 XR Chest Single View Normal [facility] eGFRon 09-26-2022 GFR/1.73 sq M.predicted among non-blacks MDRD (S/P/Bld) [Vol rate/Area] 77 mL/min/1.73 m2 Normal >=59 [facility] Comment on above: Order Comment: Order added by Discern Expert. Result Comment: Manager Recovery earnest kidney disease could be indicated at eGFR's of less than 60 mL/min/1.73m2. Kidney failure is indicated at less than 15 mL/min/1.73m2. Performed By: #### 1 2055845, 9644345, 0552629, 8634612 ####[facility] [address] [place] [address] Progress Noteson 09-07-2022 Accounting Administrator Authentication Interface Message Text EMERGENCY TRIAGE, TREAT AND TRANSPORT (ET3) DOCUMENTATION OF TELEHEALTH VISIT Date / Time: 09/06/20222146 Name: Clyde Humphrey : 1945 SSN: [id number] EMS Agency: [facility] [x] Verbal consent obtained [] Implied consent - patient with potential emergency medical condition requiring assessment of capacity to refuse treatment and/or transport VITAL SIGNS: see flowsheet documentation Reason for Telehealth Visit: Chief Complaint Patient presents with Fall History of Present Illness: Hx obtained from POA Barb Humphrey / alzheimer's 77M pmhx below, EMS called for [...] Completed by: Marcelino Echavarria MD Normal [employer] Q - CULTURE,URINE,ROUTINEon 06-23-2021 CULTURE, URINE, ROUTINE SEE NOTE Normal [facility] Stylist Assistant Comment on above: Order Comment: [facility] performed at: [facility], [address] [facility], [address] [place] [address], [phone], Account Development Specialist: Archie Sinha MD [facility] Collection Date/Time: [id number] [facility] Results Received Date/Time: [id number] [facility] Reported Date/Time: Result Comment: CULT URE, URINE, ROUTINE Micro Number: [id number] Test Status: Final Specimen Source: Urine Specimen Quality: Adequate Result: Mixed genital alvin isolated. These superficial bacteria are not indicative of a urinary tract infection. No further organism identification is warranted on this specimen. If clinically indicated, recollect clean-catch, mid-stream urine and transfer immediately to Urine Culture Transport Tube. Performed By: #### 6 304R #### [facility] Default [address] [place] [address] Q - CULTURE,URINE,ROUTINEon 05-05-2021 CULTURE, URINE, ROUTINE SEE NOTE Normal N [facility] Stylist Assistant Comment on above: Order Comment: [facility] performed at: [facility], [address] , [address] [place] [address], [phone], Account Development Specialist: Archie Sinha MD [facility] Collection Date/Time: [id number] [facility] Results Received Date/Time: [id number] [facility] Reported Date/Time: [id number] Result Comment: CULT URE, URINE, ROUTINE Micro Number: [id number] Test Status: Final Specimen Source: Urine Specimen Quality: Adequate Result: Growth of mixed alvin was isolated, suggesting probable contamination. No further testing will be performed. If clinically indicated, recollection using a method to minimize contamination, with prompt transfer to Urine Culture Transport Tube, is recommended. Performed By: #### 6 304R #### [facility] Default [address] [place] [address] Vital Signs Date Time Vital Sign Value Performing Clinician Facility 01-24-2023 10:00-0400 Hourly Rounding Mbanefo [facility]UKWU [facility] 01-24-2023 10:00-0400 Promise to Return Mbanefo [facility] 01-24-2023 09:00-0400 Hourly Rounding Mbanefo [facility] 01-24-2023 09:00-0400 Promise to Return Mbanefo [facility] 01-24-2023 08:29-0400 Diastolic blood pressure 73 mm[Hg] Mbanefo [facility] 01-24-2023 08:29-0400 Systolic blood pressure 157 mm[Hg] M[facility]efo [facility] 01-24-2023 08:27-0400 Blood Pressure Location Mbanefo [facility] 01-24-2023 08:27-0400 Body temperature 97.7 [degF] M[facility]efo [facility] 01-24-2023 08:27-0400 Diastolic blood pressure 73 mm[Hg] [facility]efo [facility] 01-24-2023 08:27-0400 Heart rate 82 /min [facility]o [facility] 01-24-2023 08:27-0400 Respiratory rate 16 /min [facility]o [facility] 01-24-2023 08:27-0400 Systolic blood pressure 157 mm[Hg] M[facility]efo [facility] 01-24-2023 08:00-0400 Hourly Rounding Mbanefo [facility] 01-24-2023 08:00-0400 Promise to Return Mbanefo [facility] 01-24-2023 00:05-0400 Blood Pressure Location Mbanefo [facility] 01-24-2023 00:05-0400 Body temperature 97.7 [degF] [facility]o [facility] 01-24-2023 00:05-0400 Diastolic blood pressure 76 mm[Hg] [facility]o [facility] 01-24-2023 00:05-0400 Heart rate 83 /min [facility]o [facility] 01-24-2023 00:05-0400 Mean blood pressure 99 mm[Hg] [facility]o [facility] 01-24-2023 00:05-0400 SaO2% (BldA) [Mass fraction] 97 % [facility] 01-24-2023 00:05-0400 Systolic blood pressure 144 mm[Hg] M[facility]efo [facility] 01-23-2023 19:36-0400 Heart rate 81 /min [facility]efo [facility] 01-23-2023 19:36-0400 SaO2% (BldA) [Mass fraction] 96 % [facility]o [facility] 01-23-2023 19:36-0400 Body temperature 97.34 [degF] Mbanefo [facility] 01-23-2023 19:34-0400 Mean blood pressure 83 mm[Hg] Mbanefo [facility] 01-23-2023 13:00-0400 Body temperature 98.06 [degF] [facility]o [facility] 01-23-2023 06:55-0400 Blood Pressure Location Mbanefo [facility] 01-23-2023 06:55-0400 Mean blood pressure 89 mm[Hg] Mbanefo [facility] 01-23-2023 06:55-0400 Respiratory rate 16 /min [facility]o [facility] 01-23-2023 06:55-0400 SaO2% (BldA) [Mass fraction] 93 % [facility]o [facility] 01-22-2023 23:00-0400 Body temperature 97.88 [degF] [facility]efo [facility] 01-22-2023 23:00-0400 Mean blood pressure 82 mm[Hg] Mbanefo [facility] 01-22-2023 23:00-0400 Respiratory rate 18 /min M[facility]efo [facility] 01-22-2023 18:37-0400 Body temperature 97.52 [degF] [facility]efo [facility] 01-22-2023 18:36-0400 Mean blood pressure 81 mm[Hg] Mbanefo [facility] 01-22-2023 16:09-0400 Mean blood pressure 81 mm[Hg] Mbanefo [facility] 01-22-2023 16:07-0400 Body temperature 97.52 [degF] [facility]efo [facility] 01-22-2023 04:50-0400 Heart rate 77 /min [facility]o [facility] 01-21-2023 21:09-0400 Heart rate 85 /min [facility]o [facility] 01-21-2023 15:11-0400 Heart rate 78 /min [facility] [facility] 12-20-2022 09:37-0400 Hourly Rounding Maycol CAGLE [facility] 12-20-2022 09:37-0400 Promise to Return Maycolyasmine GEELIN [facility] 12-20-2022 09:06-0400 Heart rate 65 /min Maycolyasmine ARRIOLASLIN [facility] 12-20-2022 09:06-0400 Respiratory rate 20 /min Maycol ARRIOLASLIN [facility] 12-20-2022 09:06-0400 SaO2% (BldA) [Mass fraction] 92 % Maycolyasmine ARRIOLASLIN [facility] 12-20-2022 08:56-0400 Heart rate 61 /min Maycol TSERING [facility] 12-20-2022 08:56-0400 Respiratory rate 20 /min Maycol TSERING [facility] 12-20-2022 08:56-0400 SaO2% (BldA) [Mass fraction] 92 % Maycol TSERING [facility] 12-20-2022 08:51-0400 Hourly Rounding Maycol TSERING [facility] 12-20-2022 08:51-0400 Promise to Return Maycol TSERING [facility] 12-20-2022 08:50-0400 Hourly Rounding Maycol TSERING [facility] 12-20-2022 08:31-0400 Promise to Return Maycol TSERING [facility] 12-20-2022 07:29-0400 Heart rate 60 /min Maycol TSERING [facility] 12-20-2022 07:29-0400 SaO2% (BldA) [Mass fraction] 93 % Maycol TSERING [facility] 12-20-2022 07:28-0400 Body temperature 98.06 [degF] Maycol TSERING [facility] 12-20-2022 07:28-0400 Diastolic blood pressure 69 mm[Hg] Maycol TSERING [facility] 12-20-2022 07:28-0400 Mean blood pressure 94 mm[Hg] Maycol TSERING [facility] 07-30-2023 07:28-0400 Systolic blood pressure 143 mm[Hg] Maycol TSERING [facility] 12-20-2022 03:25-0400 Respiratory rate 16 /min Maycol TSERING [facility] 12-20-2022 00:15-0400 Body temperature 97.7 [degF] Maycol TSERING [facility] 12-20-2022 00:15-0400 Diastolic blood pressure 56 mm[Hg] Maycol TSERING [facility] 12-20-2022 00:15-0400 Systolic blood pressure 135 mm[Hg] Maycol TSERING [facility] 12-19-2022 19:28-0400 Body temperature 98.42 [degF] Maycolyasmine ARRIOLASLIN [facility] 12-19-2022 19:27-0400 Diastolic blood pressure 69 mm[Hg] Maycol TSERING [facility] 12-19-2022 19:27-0400 Mean blood pressure 90 mm[Hg] Maycol TSERING [facility] 12-19-2022 19:27-0400 Systolic blood pressure 134 mm[Hg] Maycol TSERING [facility] 12-19-2022 16:26-0400 gluc 111 mg/dL Maycol TSERING [facility] 12-19-2022 16:06-0400 Mean blood pressure 95 mm[Hg] Maycol TSERING [facility] 12-19-2022 16:00-0400 Body temperature 98.06 [degF] Maycol TSERING [facility] 12-19-2022 11:58-0400 gluc 201 mg/dL Maycol TSERING [facility] 12-19-2022 08:18-0400 gluc 93 mg/dL Maycol TSERING [facility] 12-19-2022 08:00-0400 Body temperature 98.6 [degF] Maycol TSERING [facility] 12-18-2022 05:46-0400 Blood Pressure Location Maycol TSERING [facility] 12-18-2022 05:46-0400 Heart rate 67 /min Maycol TSERING [facility] 12-18-2022 05:00-0400 Body temperature 98.42 [degF] Maycol TSERING [facility] 12-18-2022 05:00-0400 Mean blood pressure 78 mm[Hg] Maycol TSERING [facility] 12-18-2022 05:00-0400 Respiratory rate 20 /min Myacol TSERING [facility] 12-18-2022 04:00-0400 Mean blood pressure 77 mm[Hg] Maycol TSERING [facility] 12-18-2022 04:00-0400 Respiratory rate 21 /min Maycol TSERING [facility] 12-18-2022 03:00-0400 Mean blood pressure 75 mm[Hg] Maycol TSERING [facility] 12-18-2022 03:00-0400 Respiratory rate 22 /min Maycol TSERING [facility] 12-18-2022 00:09-0400 Heart rate 85 /min Maycol TSERING [facility] 12-17-2022 23:54-0400 Heart rate 86 /min Maycol TSERING [facility] 12-02-2022 14:00-0400 SaO2% (BldA) [Mass fraction] 93 % Maycol TSERING [facility] 12-02-2022 13:00-0400 Hourly Rounding Maycol TSERING [facility] 12-02-2022 13:00-0400 Promise to Return Maycol TSERING [facility] 12-02-2022 12:58-0400 Heart rate 85 /min Maycol TSERING [facility] 12-02-2022 12:58-0400 SaO2% (BldA) [Mass fraction] 88 % Maycol TSERING [facility] 12-02-2022 12:58-0400 Body temperature 97.7 [degF] Maycol TSERING [facility] 12-02-2022 12:58-0400 Diastolic blood pressure 75 mm[Hg] Maycol TSERING [facility] 12-02-2022 12:58-0400 Mean blood pressure 102 mm[Hg] Maycol TSERING [facility] 12-02-2022 12:58-0400 Systolic blood pressure 157 mm[Hg] Maycol TSERING [facility] 12-02-2022 12:10-0400 Hourly Rounding Maycol TSERING [facility] 12-02-2022 12:10-0400 Promise to Return Maycol TSERING [facility] 12-02-2022 11:30-0400 Hourly Rounding Maycol TSERING [facility] 12-02-2022 11:30-0400 Promise to Return Maycol TSERING [facility] 12-02-2022 08:00-0400 Blood Pressure Location Maycol TSERING [facility] 12-02-2022 08:00-0400 Diastolic blood pressure 79 mm[Hg] Maycol TSERING [facility] 12-02-2022 08:00-0400 gluc 127 mg/dL Maycol TSERING [facility] 12-02-2022 08:00-0400 Heart rate 76 /min Maycol TSERING [facility] 12-02-2022 08:00-0400 Respiratory rate 20 /min Maycol TSERING [facility] 12-02-2022 08:00-0400 Systolic blood pressure 141 mm[Hg] Maycol TSERING [facility] 12-02-2022 07:46-0400 Heart rate 66 /min Maycol TSERING [facility] 12-02-2022 07:46-0400 Respiratory rate 18 /min Maycol TSERING [facility] 12-02-2022 07:40-0400 Respiratory rate 18 /min Maycol TSERING [facility] 12-01-2022 23:32-0400 Body temperature 97.16 [degF] Maycol TSERING [facility] 12-01-2022 23:32-0400 Diastolic blood pressure 77 mm[Hg] Maycol TSERING [facility] 12-01-2022 23:32-0400 Mean blood pressure 101 mm[Hg] Maycol TSERING [facility] 12-01-2022 23:32-0400 Systolic blood pressure 130 mm[Hg] Maycol TSERING [facility] 12-01-2022 20:01-0400 Body temperature 97.16 [degF] Maycol TSERING [facility] 12-01-2022 20:01-0400 Mean blood pressure 101 mm[Hg] Maycol TSERING [facility] 12-01-2022 12:07-0400 Body temperature 97.52 [degF] Maycol TSERING [facility] 12-01-2022 07:30-0400 Body temperature 96.98 [degF] Maycol TSERING [facility] 12-01-2022 06:00-0400 gluc 110 mg/dL Maycol TSERING [facility] 11-30-2022 23:32-0400 FIO2 30 % Maycol TSERING [facility] 11-30-2022 20:04-0400 Mean blood pressure 98 mm[Hg] Maycol TSERING [facility] 11-30-2022 04:38-0400 Mean blood pressure 91 mm[Hg] Maycol TSERING [facility] 11-29-2022 20:16-0400 FIO2 30 % Maycol TSERING [facility] 11-29-2022 19:00-0400 Blood Pressure Location Maycol TSERING [facility] 11-29-2022 08:10-0400 FIO2 30 % Maycol CAGLE [facility] 11-29-2022 04:08-0400 gluc 107 mg/dL Maycol CAGLE [facility] 11-29-2022 04:08-0400 Mean blood pressure 80 mm[Hg] Maycol CAGLE [facility] 11-29-2022 00:16-0400 Heart rate 48 /min Maycol CAGLE [facility] 11-28-2022 22:55-0400 Respiratory rate 19 /min Maycol CAGLE [facility] 11-28-2022 21:45-0400 Respiratory rate 18 /min Maycol CAGLE [facility] 11-28-2022 20:45-0400 Respiratory rate 22 /min Maycol CAGLE [facility] 11-28-2022 18:55-0400 SaO2% (BldA) [Mass fraction] 95.4 % Maycol CAGLE [facility] 11-28-2022 17:13-0400 Heart rate 59 /min aMycol CAGLE [facility] 09-07-2022 01:10-0400 Diastolic blood [facility] 53 mm[facility]Hg[facility] 01:10-0400 Heart rate 70 /min [facility] 09-07-2022 01:10-0400 SaO2% (BldA) [Mass fraction] 96 % [facility] 09-07-2022 01:10-0400 Systolic blood pressure 135 mm[Hg] [facility] Encounters Encounter Date Encounter Type Care Provider Facility Start: 02-01-2023 ambulatory Robin Garcia acility:[facility] Start: 01-21-2023 End: 01-24-2023 Evaluation and management of inpatient [place] Facility:[facility] Start: 01-21-2023 End: 01-24-2023 Evaluation and management of inpatient Steve MayesJUKWU [facility] Start: 01-15-2023 End: 01-16-2023 ambulatory Donta MCADOO Facility:CD:[id number] Start: 01-15-2023 End: 01-15-2023 Off-Site [facility] Start: 12-22-2022 End: 12-23-2022 ambulatory [facility] Facility:CD:[id number] Start: 12-22-2022 End: 12-22-2022 Off-Site [facility] Start: 12-18-2022 End: 12-20-2022 Evaluation and management of inpatient Maycol CAGLE Facility:[facility] Start: 12-17-2022 End: 12-20-2022 Evaluation and management of inpatient Maycol CAGLE [facility] Start: 12-14-2022 End: 01-16-2023 ambulatory Donta MCADOO Facility:CD:[id number] Start: 12-14-2022 End: 01-16-2023 In-Between Visit [facility] Start: 12-11-2022 ambulatory [facility] Facilit y:LUISA Rodas Start: 12-03-2022 End: 12-03-2022 Off-Site [facility] Start: 12-03-2022 End: 12-04-2022 ambulatory [facility] Facility:CD:[id number] Start: 12-02-2022 End: 01-16-2023 ambulatory Donta NOONAN Facility:[facility] Start: 11-30-2022 ambulatory Facility:[id number] Start: 11-30-2022 ambulatory Facility:[id number] Start: 11-29-2022 ambulatory Facility:[id number] Start: 11-29-2022 End: 12-02-2022 Evaluation and management of inpatient Maycol CAGLE Facility:[facility] Start: 11-28-2022 End: 12-02-2022 Evaluation and management of inpatient Maycol CAGLE [facility] Start: 11-26-2022 End: 11-27-2022 ambulatory Bienvenido Barroso Facility:[facility] Start: 11-26-2022 End: 11-26-2022 Patient encounter procedure Bienvenido Barroso [facility] Start: 09-26-2022 End: 09-28-2022 ambulatory UNKNOWN PROVIDER Facility:[facility] Start: 09-07-2022 End: 09-08-2022 ambulatory UNKNOWN PROVIDER Facility:[facility] Start: 2022 End: 2022 ambulatory [facility] Triage, Treat and Transport Start: 2022 End: 2022 Emergency department patient visit [facility] Emergency Triage, Treat and Transport Comment [...] (2 - PPSV23 if available, else PCV20) [facility] Start: 1994 Shingles (RZV) Vacci ne (1 of 2) Shingles (RZV) Vaccine (1 of 2) [facility] Start: 1962 Hepatitis C screening Hepatitis C An tibody [facility] Start: 1962 Tetanus + diphtheria + acellular pertussis vaccine (product) Tdap Booster [facility] Immunizations Immunization Date Immunization Notes Care Provider Fa cility 03-12-2022 SARS-CoV-2 (COVID-19 ) mRNAMUL.ORD![id number] Donta SHAIST[facility] 03-17-2021 Influenza, injectabl e, high-dose seasonal, quadrivalent, 0.7 mL, preservative free (SGR=783) [facility] 07-15-2020 Pfizer (12+ yrs) SARS-COV-2 (COVID-19) vaccine, mRNA, spike protein, LNP, pres. free, 30 mcg/0.3mL dose (VCU=716) [facility] 06-26-2020 Pfizer (12+ yrs) SARS-COV-2 (COVID-19) vaccine, mRNA, spike protein, LNP, pres. free, 30 mcg/0.3mL dose (BLH=010) [facility] 06-23-2019 influenza, high dose seasonal, preservative-free [facility] 05-14-2017 influenza, high dose seasonal, preservative-free [facility] 05-14-2017 pneumococcal conjuga te vaccine, 13 valent [facility] 04-04-2014 influenza, injectabl e, madin cee canine kidney, preservative free [facility] NEGATED: Highlighted row has not occurred!06-15-2014 pneumococcal polysaccharide vaccine, 23 valent Bienvenido Barroso [facility] Comment on above: Result Note: pt had vaccine last year per Payers Date Payer Category Payer Self-pay 2022 Unknown [id number] 2022 Medicare [facility] [id number] 2022-Present [address] [place] [address] Medicare [id number] 2022 Unknown [id number] 1944 Unknown [id number] [id number] 1944 Unknown [id number] 2.16.840.1.396004.3.579.2.732 1944 Unknown [id number] 2.16.840.1.299709.3.579.2.356 1944 Unknown [id number] 2.16.840.1.929967.3.579.2.356 1944 Unknown [id number] 2.16.840.1.503073.3.579.2.356 1944 Unknown [id number] 2.16.840.1.156279.3.579.2.727 1944 Unknown [id number] 2.16.840.1.705574.3.579.2.727 1944 Unknown [id number] 2.16.840.1.030809.3.579.2.727 1944 Unknown [id number] 2.16.840.1.906388.3.579.2.72 1944 Unknown [id number] 2.16.840.1.317813.3.579.2.72 1944 Unknown [id number] 2.16.840.1.481648.3.579.2.72 1944 Unknown [id number] 2.16.840.1.947576.3.579.2.727 1944 Unknown [id number] 2.16.840.1.812738.3.579.2.727 1944 Unknown [id number] 2..840.1.093281.3.579.2.727 1944 Unknown [id number] 2.16.840.1.369350.3.579.2.727 1944 Unknown [id number] 2.840.1.101665.3.579.272 1944 Unknown [id number] 2.16.840.1.135267.3.579.2.727 Social History Date Type Detail Facility Tobacco smoking status RIIS Tobacco smoking consumption [facility] Start: 1945 Sex Assigned At [facility] Start: 04-24-2021 Tobacco smoking status Ex-smoker (finding) [facility] Sex Assigned At Male [facility] Functional Status Date Assessment Result Facility 01-21-2023 Functional Status No [facility] 01-21-2023 Functional Status [facility] 12-18-2022 Functional Status N/A [facility] 12-17-2022 Functional Status [facility] 11-29-2022 Functional Status N/A [facility] 11-28-2022 Functional Status [facility] Clinical Notes 09-07-2022 to 01-24-2023 Note [...] When Contact Information Dharmesh POTTS, Bienvenido Chavira, [facility] [place] [place] [address]- Additional Instructions: Dementia, [id number] Extracted from: Title:APSO Note Author:[place] DO e:01/23/23 1. Generalized weakness (R53 .1: Weakness) IV fluids, trend BUN and creatinine PT/OT Currently awaiting pre-CERT for placement 2. Alzheimers disease (G30.9: Alzheimer's disease, unspecified) Continue Seroquel 3. 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 Alzheimers disease (G30.9: Alzheimer's disease, unspecified) Continue Seroquel 3. 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 COPD [...] Ordered: Initial Hospital Care/Day Moderate 55 Minutes 40720 2. Alzheimers disease (G30.9: Alzheimer's disease, unspecified) Continue Seroquel 3. 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 [facility]09-03-2023 [facility] HospitalComment on above:Result Comment: Electronically Signed By: [place] DO.candice\Date and Time Signed: 01/24/23 09:57 [id number] Hospital Discharge instructions Patient Education 01/24/2023 09:54:03 Dementia, Gekm-qw-Fadm Dementia Dementia is a condition that affects [...] Follow these instructions at home: Medicines Take nrdk-qct-oaadycv and prescription medicines only as told by [...] find more information Alzheimer's Association: www.alz.org National [place] on Aging: www.susie.nih.gov/alzheimers World Health Organization: www.who.int [...] the National Suicide Prevention Lifeline at or 719 in the [place] This is open 24 hours a day. Text the Crisis Text Line at 937231. Summary Dementia often affects memory and thinking. [...] provider. Document Revised: 12/03/2021 Document Reviewed: 09/23/2020 [employer] Patient Education 2022 [employer]. Follow Up Care 01/21/2023 15:06:04 With:Dharmesh POTTS, SHEA Castillo Address: [address] [place] [address]- When: Unknown [facility]08-31-2023 [facility]FishJohn[facility]view [facility] CenterComment on above:Result Comment: Electronically Signed By: [place] DO.br\Date and Time Signed: 01/21/23 17:53 [id number] Evaluation + Plan note Extracted from: Title:Discharge Note Author:MICHAEL POTTS, Jamir Gerry e:12/20/22 stable Discharge To, Anticipated II - Residential Unit Discharged to - [facility]F Discharge Diet(s): Calorie Controlled- 1800 Calorie Diet (12/20/22 09:46:00) Prescriptions alprazolam 0.5 mg Tab, 0.5 mg= 1 tab(s), Oral, Daily, PRN aspirin 81 mg Oral EC Tab, 81 mg= 1 tab(s), Oral, Daily Augmentin 875 mg oral tablet, 1 tab(s), Oral, q12hr ergocalciferol 50,000 intl units Cap, 81154 International_Unit= 1 cap(s), Oral, q7day furosemide 40 [...] BID With When Contact Information Bienvenido Barroso [employer] [place], [place] [address] (1) Additional Instructions: Call for followup [...] ultimately benefit being only slightly on the fish 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 Coronary artery disease (I25.10: Atherosclerotic heart disease of poarch coronary artery without angina pectoris) Patient had [...] hypertension) Await reconciliation of meds from [facility] care facility. He did have 1 blood pressure of 106 systolically in the emergency department. With the fall and suspicion of intravascular depletion will transiently hold antihypertensives if it is identified he is actually on [facility]hypertens[facility]. On a prior hospitalization he had been [...] recent hospitalization has been titrated at the [facility] facility. He was recently placed on Xanax, discontinue that at this time. Awaiting verification of meds from the [facility] 15. Encounter for deep vein thrombosis (DVT) [...] * Legionella Antigen Urine 12/18/22 [facility]07-30-2023 NoteCRM entered the room to discuss dc planning. PCP, DME and insurance discussed. Patient is alert andinvolved in plan of care. Contact information given and whiteboard updated. [facility] room 17 today. CRM to follow.Ciro [facility] HospitalComment on above:Result Comment: Electronically Signed By: Natalie Grant\.br\Date and Time Signed: 12/20/22 11:52 [id number] Carmenza [facility] HospitalComment on above: Result Comment: Electronically Signed By: Jamir MCKINNEY MD\.br\Date and Time Signed: 12/20/22 10:[id number] Hospital Discharge instructions Patient Education 12/20/2022 09:48:09 [...] hard liquor (44 mL). General instructions Take bpor-she-hjdtebw and prescription medicines as told by your [...] are not available, use an alcohol-based hand cashier receptionist. ?Make sure your health care providers wash [...] and water or with alcohol- based hand cashier receptionist before and after caring for sick people. [...] bacteria common in health care settings. Take uamc-xob-knqbfbx and prescription medicines as told by your [...] provider. Document Revised: 05/31/2022 Document Reviewed: 05/31/2022 [employer] Patient Education 2022 [employer] Follow Up Care 12/17/2022 23:50:19 With:Bienvenido Barroso Address: [address] [place] [id number] [address] [facility] (1) When: Unknown Comments:Call for followup appointment [facility]07-28-2023 [facility]:Result Comment: Electronically Signed By: Maycol CAGLE DO\.br\Date and Time Signed: 12/18/22 06:27 [id number] [facility] SystemComment on above:Result Comment: Electronically Signed By: Lizeth Cedeno MD\.br\Date and Time Signed: 12/02/22 12:28 [id number] Evaluation + Plan noteExtracted from: Title:Discharge Note Author:Lizeth Cedeno MD ate:12/02/22 Stable Discharge To, Anticipated II - Residential Unit Discharged to - Home with family care Transported by, Anticipated - Family Discharge Diet(s): Other: Limit fluids to 1800 ml/day (12/02/22 12:23:00) Prescriptions aspirin 81 mg Oral EC Tab, 81 mg= 1 tab(s), Oral, Daily ergocalciferol 50,000 intl units Cap, 47166 International_Unit= 1 cap(s), Oral, q7day furosemide 40 [...] Bedtime With When Contact Information Joanie Jiménez [facility] [address] [place] [address]- Business (1) Additional Instructions: HFpEF Dave Hurley [address] [place] [address]- Business (1) Additional Instructions: Cog impariment, Alzhiemer's Bienvenido Barroso In [address] [place] [address]- Business (1) Additional Instructions: Extracted from: Title:UPDATE [...] of CAD and previous coronary interventions in [place] with no indication of recurrent CAD, would [...] as able, pulm avery. -check echo Ordered: [facility] Hospital Care/Day High 50 Minutes 93280 2. Acute on chronic diastolic heart failure (I50.33: Acute on chronic diastolic (congestive) heart failure) c/w spironolactone and lasix IV 40mg qd -strict I/Os and daily weight - last echo was done 2014 with EF of 50%. will recheck this visit Ordered: [facility] Hospital Care/Day High 50 Minutes 45826 3. COPD without exacerbation (J44.9: Chronic obstructive pulmonary disease, unspecified) Ordered: [facility] Care/Day High 50 Minutes 10437 4. Weakness (R53.1: Weakness) -pt/ot Ordered: [facility] Care/Day High 50 Minutes 88601 5. Sinus bradycardia (R00.1: Bradycardia, unspecified) baseline. last EKG similar. -pt had decreased HR overnight so BB was held. -continue to monitor on tele Ordered: [facility] Care/Day High 50 Minutes 28273 6. Coronary artery disease (I25.10: Atherosclerotic heart disease of po[place] coronary artery without angina pectoris) -c/w ASA Ordered: [facility] Care/Day High 50 Minutes 09856 7. Obstructive sleep apnea (G47.33: Obstructive sleep apnea (adult) (pediatric)) -CPAP qHS Ordered: [facility] Care/Day High 50 Minutes 56210 8. Pulmonary hypertension (I27.20: Pulmonary hypertension, unspecified) c/w spironolactone 50mg -lasix 40 mg iv qd -strict I/Os daily weights -check echo Ordered: [facility] Care/Day High 50 Minutes 02300 9. Abdominal pain (R10.9: Unspecified abdominal pain) resolved no complaints this morning Ordered: [facility] Care/Day High 50 Minutes 28949 10. Hypertension (I10: Essential (primary) hypertension) c/w spironolactone Ordered: [facility] Care/Day High 50 Minutes 81307 11. Diabetes (E11.9: Type 2 diabetes mellitus without complications) BGT qACHS -c/w glimepiride Ordered: [facility] Care/Day High 50 Minutes 37226 12. Hyperlipidemia (E78.5: Hyperlipidemia, unspecified) -hold statin due to elevated CK Ordered: [facility] Care/Day High 50 Minutes 30263 13. Chronic anemia (D64.9: Anemia, unspecified) monitor Ordered: [facility] Care/Day High 50 Minutes 27238 14. BPH (benign prostatic hyperplasia) (N40.0: Benign prostatic hyperplasia without lower urinary tract symptoms) c/w tamsulosin Ordered: [facility] Care/Day High 50 Minutes 58388 15. Dementia (F03.90: Unspecified dementia, unspecified severity, without behavioral disturbance, psychotic disturbance, mood disturbance, and anxiety) -c/w seroquel 25mg qHS Ordered: [facility] Care/Day High 50 Minutes 90864 16. Encounter for deep vein thrombosis (DVT) prophylaxis (Z29.9: Encounter for prophylactic measures, unspecified) Ordered: [facility] Care/Day High 50 Minutes 81138 17. Elevated CK (R74.8: Abnormal levels of other serum enzymes) -CK 1000 this morning. will monitor and hold statin - will not give fluids due to current diuresis Ordered: [facility] Care/Day High 50 Minutes 19879 COPD with acute exacerbation (J44.1: Chronic obstructive [...] artery disease (I25.10: Atherosclerotic heart disease of [place] coronary artery without angina pectoris) Continue aspirin, [...] Continue Seroquel at night with risk of ing 16. Encounter for deep vein thrombosis (DVT) [...] Scheduled Provider:Donta NOONAN MD Location:Extended Care Appointment Type:[facility]07-10-2023 NoteOT [facility] six clicks score 15/24 = SNF. Patient requires assist w/ all transfers and self care at this time. Inpatient OT services to follow daily to progress w/ functional skills.[facility]07-09-2023 NotePT Evaluation completed with an [facility] score of 16/24. Pt requires Min A for bed mobility and min/Mod A to stand. Pt was able to take two sidesteps. Will follow daily, but [facility] SystemComment on above:Result Comment: Electronically Signed By: Maycol CAGLE DO\.br\Date and Time Signed: 11/29/22 01:33 [id number] Hospital Discharge instructions Follow Up Care 11/28/2022 17:10:04 With:Joanie Jiménez Address: [facility] [address], [address] [place] [address]- Business (1) When: Unknown Comments:HFpEF With:Dave Cruz Address: [address] [place] [phone] Business (1) When: Unknown Comments:Cog impariment, Al[facility]'s With:Bienvenido Barroso Address: [address] [place] [phone] Business (1) When: Unknown [facility]05-20-2023 [facility] SystemComment on above:Result Comment: Electronically Signed By: Adeline COLEMAN\.br\Date and Time Signed: 10/10/22 17:53 EDT\.br\Electronically Co- Signed By: Ganesh Minaya MD\.br\Date and Time Co-Signed: 10/10/22 18:51 EDT 09-27-2022 [facility] SystemComment on above:Result Comment: Electronically Signed By: Adeline COLEMAN\.br\Date and Time Signed: 09/26/22 21:20 EDT\.br\Electronically Co-Signed By: Rei POTTS, Ganesh Pressley\.br\Date and Time Co-Signed: 09/27/22 08:00 [id number] History of Present illness Narrative* Marcelino Echavarria MD - 09/07/2022 1:12 AM EDT Images from the original note were not included. EMERGENCY TRIAGE, TREAT AND TRANSPORT (ET3) DOCUMENTATION OF TELEHEALTH VISIT Date / Time: 09/06/20222146 Name: Clyde Humphrey : 1945 SSN: [id number] EMS Agency: [facility] [x] Verbal consent obtained [] [...] data available for this section [facility] Diagnosis Fall, initial encounter- [facility] No data available for this section [facility] No data available for this section [facility] Summary Purpose Family History No Family History [...] section and content) DATE CREATED AUTHOR 06/26/2021 [facility] dical Specialist DATE CREATED AUTHOR AUTHOR'S ORGANIZ ATION 09/30/2022 [facility] DATE CREATED AUTHOR AUTHOR'S ORGANIZ ATION 12/05/2022 [facility] DATE CREATED AUTHOR AUTHOR'S ORGANIZ ATION 03/26/2023 [facility] DATE CREATED AUTHOR AUTHOR'S ORGANIZ ATION 05/04/2023 [facility] Reason for Visit (unrecogniz ed section and content) Reason Comments Fall Patient Care team informatio n (unrecognized section and content) Personnel Name: Dharmesh POTTS, Bienvenido Chavira Address: Address: [address] [place] [address]- [place] Name: Andrew Rodriguez Personnel Name: Bienvenido Barroso MD Address: Address: [address] [place] [address] Name: Andrew Rodriguez Patti Personnel Name: Bienvenido Barroso MD Address: Address: [address] [place] [address] Name: Andrew Rodriguez Patti Personnel Name: Bienvenido Barroso MD Address: Address: [address] [place] [address] Name: Andrew Rodriguez Personnel Name: Bienvenido Barroso MD Address: Address: [address] [place] [address] Name: Andrew Rodriguez Personnel Name: Bienvenido Barroso MD Address: Address: [address] [place] [address] Name: Andrew Rodriguez Personnel Name: Bienvenido Barroso MD Address: Address: [address] [place] [address] Name: Andrew Rodriguez Personnel Name: Bienvenido Barroso MD Address: Address: [address] [place] [address] Name: Luis Gil LPN Name: Jackson Rodriguezan Patti FOR RECORDS PERTAINING TO PATIENTS WHO ARE [...] BE BASED ON THE PRIMARY CLINICAL RECORDS. [employer] provides no warranty or guarantee of the accuracy or completeness of information in this document.
[2023-12-20 10:14] LABS: Estimated Average Glucose 171 mg/dL; Glycohemoglobin A1C 7.6 % (4.5-6.2)
== END 2023-12-20 07:53 | disposition home or self-care (01) ==
LOC: LAB 07:52
PROVIDERS: PCP Family Medicine; Visit Provider Family Medicine
DX: E11.8 Type 2 diabetes mellitus with unspecified complications (principal)
CPT/HCPCS: 36415; 83036; 86592; 86803; 87340; 87389

== ENCOUNTER 2023-12-28 20:00 | Outpatient (REF) | payer OTHER, SELFPAY ==
--- OUTSIDE RECORDS SUMMARY | 2023-12-29 06:39 | XMS_ITS | CCD ---
Author Organization [facility] Care Team Providers Care Apartment Coordinator Name Role Phone Unavailable Primary Care Provider Unavailabl e PROVIDER, UNKNOWN Attending Unavailable PROVIDER, UNKNOWN Admitting Unavailable PROVIDER, UNKNOWN Attending Unavailable PROVIDER, UNKNOWN Admitting Unavailable Bienvenido Barroso Primary Care Physician [phone] Andrwe Rodriguez Unavailable Unavailable Luis Gil Unavailable Unavailable [...] Refills(s) 0 Start Date: 06/16/14 Status: Ordered [id number] 200 actuat albuterol 0.09 mg/actuat metered dose inhaler (4 sources) beta2-Adrenergic Agonist Start: 04-27-2021 take 2 puff(s) by inhalation four times daily for wheezing Pro-Air HFA CFC free 90 mcg/inh MDI 2 puff(s), Inhalation, QID for wheezing, 8.5 gram, Refill(s) 0, [facility], 167.6, cm, 04/24/21 18:14:00 EST, Height/Length [...] Daily, # 30 tab(s), Refills(s) 0, Pharmacy: [facility], 167, cm, 11/28/22 17:20:00 EDT, Height/Length [...] Daily, # 90 tab(s), Refills(s) 4, Pharmacy: [facility], 160, cm, 12/18/22 0:04:00 EDT, Height/Length [...] Daily, # 90 tab(s), Refills(s) 4, Pharmacy: [facility], 160, cm, 12/18/22 0:04:00 EDT, Height/Length [...] Daily, # 90 tab(s), Refills(s) 1, Pharmacy: [facility], 160, cm, 12/18/22 0:04:00 EDT, Height/Length Dosing, 94, kg, 12/18/22 0:04:00 EDT, Weight Dosing Start Date: 01/15/23 Status: Ordered Start: 12-02-2022 take 1 tablet by ruperto th once daily furosemide 40 mg Tab 40 mg = 1 tab(s), Oral, Daily, # 30 tab(s), Refills(s) 0, Pharmacy: [facility], 167, cm, 11/28/22 17:20:00 EDT, Height/Length [...] day, # 30 tab(s), Refills(s) 0, Pharmacy: [facility], 167, cm, 09/26/22 10:09:00 EDT, Height/Length [...] qHS, # 210 tab(s), Refills(s) 1, Pharmacy: [facility], 160, cm, 12/18/22 0:04:00 EDT, Height/Length [...] Bedtime, # 30 tab(s), Refills(s) 0, Pharmacy: [facility], 167, cm, 11/28/22 17:20:00 EDT, Height/Length [...] Daily, # 90 tab(s), Refills(s) 1, Pharmacy: [facility], 160, cm, 12/18/22 0:04:00 EDT, Height/Length [...] week(s), # 8 cap(s), Refills(s) 0, Pharmacy: [facility], 167, cm, 11/28/22 17:20:00 EDT, Height/Length [...] Completed Start: 06-16-2014 take 1 capsule by [facility] [place] twice daily tamsulosin 0.4 mg Cap 0.4 [...] Coronary atherosclerosis; Translations: [Atherosclerotic heart disease of [place] coronary artery without angina pectoris] Onset: 11-29-2022 [...] Facility Insurance Correspondenceon 05-25-2022 Insurance Correspondence [id number]# 1.00TIFF [facility] Coding Queryon 02-17-2023 Coding Query [facility] Discharge Instructionson Discharge Instructions [id number]# 1.00CD:127 Normal [facility] Transfer Documentson 023 Transfer Documents [id number]# 1.00CD:127 Normal [facility] Discharge Note-Nursingon Discharge Note-Nursing Normal [facility] Interdisciplinary Note - Santosh e Manageron 01-23-2023 Interdisciplinary Note - Human Resources Recruiter Normal [facility] Comment on above: Result Comment: [...] by Discern Expert. Performed By: #### 2 139209, 55922678, 2089871, 7026590 ####[address] [address] Basophils/Leukocytes Auto (Bld) [Pure # fraction] 0.1 E9/L Normal 0.0-0.2 [facility] Comment on above: Order Comment: Order Added by Discern Expert. Performed By: #### 2 582737, 23154121, 0105531, 1954788 ####[address] [address] Eosinophils/100 WBC (Bld) 9.3 % High 0.0-8.0 [facility] Comment on above: Order Comment: Order Added by Discern Expert. Performed By: #### 2 878550, 75343679, 8726512, 9750928 ####[address] [address] Eosinophils/Leukocytes Auto (Bld) [Pure # fraction] 0.8 E9/L High 0.0-0.5 [facility] Comment on above: Order Comment: Order Added by Discern Expert. Performed By: #### 2 244846, 16094043, 1307420, 0502842 ####[address] [address] Lymphocytes/100 WBC (Bld) 17.2 % Normal 14.0-50.0 [facility] Comment on above: Order Comment: Order Added by Discern Expert. Performed By: #### 2 795219, 26582244, 1775163, 5494917 ####[address] [address] Lymphocytes/Leukocytes Auto (Bld) [Pure # fraction] 1.4 E9/L Normal 1.0-4.0 [facility] Comment on above: Order Comment: Order Added by Discern Expert. Performed By: #### 2 034814, 04362065, 2465113, 8243582 ####[address] [address] Monocytes/100 WBC (Bld) 10.0 % Normal 4.0-14.0 [facility] Comment on above: Order Comment: Order Added by Discern Expert. Performed By: #### 2 389921, 83868368, 5639183, 1098243 ####[address] [address] Monocytes/Leukocytes Auto (Bld) [Pure # fraction] 0.8 E9/L Normal 0.2-1.0 [facility] Comment on above: Order Comment: Order Added by Discern Expert. Performed By: #### 2 704370, 28414102, 2524474, 9003936 ####[address] [address] Neutrophils/100 WBC (Bld) 62.8 % Normal 36.0-75.0 [facility] Comment on above: Order Comment: Order Added by Discern Expert. Performed By: #### 2 832537, 98626671, 3725697, 6548844 ####[address] [address] Neutrophils/Leukocytes Auto (Bld) [Pure # fraction] 5.2 E9/L Normal 2.0-7.5 [facility] Comment on above: Order Comment: Order Added by Discern Expert. Performed By: #### 2 131477, 31808583, 3607579, 7809285 ####[address] [address] CBC w/ Auto Diffon 3 Erythrocyte distribution width (RBC) [Ratio] 15.2 % High 10.9-14.2 [facility] Comment on above: Performed By: #### 2 040773, 08685767, 7049156, 4871386 ####[address] [address] Hematocrit (Bld) [Volume fraction] 43.1 % Normal 37.7-49.0 [facility] Comment on above: Performed By: #### 2 685319, 28359650, 4973957, 3086738 ####[address] [address] Hemoglobin (Bld) [Mass/Vol] 14.6 g/dL Normal 13.5-17.5 [facility] Comment on above: Performed By: #### 2 898851, 23003792, 1917953, 7516935 ####[facility] [address] [place] [address] MCH (RBC) [Entitic mass] 28.1 pg Normal 27.0-34.0 [facility] Comment on above: Performed By: #### 2 166773, 92456433, 2711837, 4715887 ####[address] [address] MCHC (RBC) [Mass/Vol] 33.8 g/dL Normal 31.4-36.0 [facility] Comment on above: Performed By: #### 2 487032, 22599050, 3133368, 7721339 ####[place] [address] MCV (RBC) [Entitic vol] 83.2 fL Normal 80.0-100.0 [facility] Comment on above: Performed By: #### 2 591326, 16555184, 0729322, 5969497 ####[address] [address] Platelet mean volume (Bld) [Entitic vol] 8.6 fL Normal 6.4-10.8 [facility] Comment on above: Performed By: #### 2 209624, 32988183, 1923409, 3707837 ####[facility] [address] [place] [address] Platelets (Bld) [#/Vol] 221.0 E9/L Normal 150.0-500.0 [facility] Comment on above: Performed By: #### 2 787608, 90284806, 6049619, 4438854 ####[facility] [address] [place] [address] RBC (Bld) [#/Vol] 5.2 E12/L Normal 4.3-5.9 [facility] Comment on above: Performed By: #### 2 966196, 40639385, 7166087, 8336589 ####[facility] [address] [place] [address] WBC corrected for nucl RBC Auto (Bld) [#/Vol] 8.3 E9/L Normal 4.0-11.0 [facility] Comment on above: Performed By: #### 2 538832, 35935415, 5059481, 1178863 ####[facility] [address] [place] [address] CHEMISTRYOrdered By: Lab ROP User on 01-22-2023 Glucose [Mass/Vol] 121 mg/dL High 55 - 99 mg/dL [facility] POC Subsection Comment on above: Result Comment: Gareth guerrero RN/ POC Device SN [id number] Invalid Interpretation Code [facility] POC Subsection POC User ID [id number] Invalid Interpretation Code [facility] POC Subsection POC Username LATONIA MALHOTRA Invalid Interpretation Code [facility] POC Subsection CHEMISTRYOrdered By: SYSTEM SYSTEM on [...] 01-22-2023 Albumin [Mass/Vol] 3.7 g/dL Normal 3.3-5.0 [facility] Comment on above: Performed By: #### 2 373764, 58083846, 6931483, 6777708 ####[facility] [address] [place] [address] Albumin/Globulin (S) [Mass conc ratio] 1.0 Low 1.1-2.2 [facility] Comment on above: Performed By: #### 2 018757, 31804834, 6880009, 9441813 ####[facility] [address] [place] [address] ALP [Catalytic activity/Vol] 47 Int._Unit/L Normal 21-98 [facility] Comment on above: Performed By: #### 2 106257, 89183682, 6056953, 9065947 ####[facility] [address] [place] [address] ALT No additional P-5'-P [Catalytic activity/Vol] 21 Int._Unit/L Normal 6-46 [facility] Comment on above: Performed By: #### 2 723625, 00977726, 9743627, 4527868 ####[facility] [address] [facility] [place] [address] Anion gap [Moles/Vol] 15 mmol/L Normal 6-16 [facility] Comment on above: Performed By: #### 2 006545, 17159917, 9431570, 4449334 ####[facility] [address] [facility] [place] [address] AST [Catalytic activity/Vol] 21 Int._Unit/L Normal 5-43 [facility] Comment on above: Performed By: #### 2 007740, 05981452, 5721489, 9152865 ####[facility] [address] [facility] [place] [address] Bilirubin [Mass/Vol] 0.8 mg/dL Normal 0.0-1.[address] [facility] Comment on above: Performed By: #### 2 975806, 22001280, 0859329, 0316763 ####[facility] [address] [place] [address] Calcium [Mass/Vol] 9.6 mg/dL Normal 8.9-11.1 [facility] Comment on above: Performed By: #### 2 484921, 48876086, 3768359, 1735619 ####[facility] [address] [place] [address] Chloride [Moles/Vol] 97 mmol/L Low 101-[address] [facility] Comment on above: Performed By: #### 2 443978, 27101863, 8210227, 1728211 ####[facility] [address] [place] [address] CO2 [Moles/Vol] 30 mmol/L Normal 21-31 [facility] Comment on above: Performed By: #### 2 050072, 23438080, 2147245, 1506933 ####[facility] [address] [place] [address] Creatinine [Mass/Vol] 1.3 mg/dL Normal 0.5-1.3 [facility] Comment on above: Performed By: #### 2 870628, 01883649, 2169228, 7956399 ####[facility] [address] [place] [address] Globulin (S) [Mass/Vol] 3.6 g/dL Normal 1.4-4.0 [facility] Comment on above: Performed By: #### 2 373846, 88174813, 5395352, 5496742 ####[facility] [address] [place] [address] Glucose [Mass/Vol] 124 mg/dL Normal 55-199 [facility] Comment on above: Result Comment: If t his glucose result represents a fasting glucose, interpretation should refer to the following reference range: 55-99 mg/dL Performed By: #### 2 383855, 02996913, 1040004, 5882838 ####[facility] [address] [facility] [place] [address] Potassium [Moles/Vol] 4.0 mmol/L Normal 3.5-5.3 [facility] Comment on above: Performed By: #### 2 243664, 49661775, 4448229, 1817640 ####[facility] [address] [facility] [place] [address] Protein [Mass/Vol] 7.3 g/dL Normal 6.0-7.8 [facility] Comment on above: Performed By: #### 2 569432, 20602400, 5149160, 8696604 ####[facility] [address] [place] [address] Sodium [Moles/Vol] 138 mmol/L Normal 135-145 [facility] Comment on above: Performed By: #### 2 610549, 41608687, 6843782, 4154662 ####[facility] [address] [place] [address] Urea nitrogen [Mass/Vol] 42 mg/dL High 5-21 [facility] Comment on above: Performed By: #### 2 268401, 75494464, 0956068, 0415570 ####[facility] [address] [place] [address] Urea nitrogen/Creatinine [Mass ratio] 32 No Units High 10-20 [facility] Comment on above: Performed By: #### 2 809304, 74708616, 7322027, 8883750 ####[facility] [address] [place] [address] Capillary Glucose POCon Glucose [Mass/Vol] 121 mg/dL High 55-99 [facility] Comment on above: Result Comment: Gareth guerrero RN/ Performed By: #### 2 80389104 ####[facility] [address] [place] [address] Coding Queryon 01-22-2023 Coding Query Normal [facility] HEMATOLOGYOrdered By: SYSTEM SYSTEM on [...] Correspondence Off iceon 01-22-2023 Insurance Correspondence Office [id number]#1 .00CD:127 Normal [facility] Interdisciplinary Note - Santosh e Manageron 01-22-2023 Interdisciplinary Note - Human Resources Recruiter Normal [facility] Comment on above: Result Comment: Elec tronically Signed By: Natalie Grant\.br\Date and Time Signed: 01/22/23 11:13 EDT Interdisciplinary Note - Murphy n 01-22-2023 Interdisciplinary Note - OT Normal [facility] Interdisciplinary Note - PTo n 01-22-2023 Interdisciplinary Note - PT Normal [facility] Message from Medicareon 090 Message from Medicare [id number]#1 .00CD:127 Normal [facility] Progress Note-Physicianon Progress Note-Physician Normal [facility] Comment on above: Result Comment: Elec tronically Signed By: New Johnson DO.br\Date and Time Signed: 01/22/23 14:15 EDT eGFRon 01-22-2023 GFR/1.73 sq M.predicted among non-blacks MDRD (S/P/Bld) [Vol rate/Area] 56 mL/min/1.73 m2 Low >=59 [facility] Comment on above: Order Comment: Order added by Discern Expert. Result Comment: Polishing Machine Operator Helper earnest kidney disease could be indicated at eGFR's of less than 60 mL/min/1.73m2. Kidney failure is indicated at less than 15 mL/min/1.73m2. Performed By: #### 2 887892, 91612282, 2839617, 6838698 ####[facility] [address] [place] [address] Auto Diffon 01-21-2023 Basophils/100 WBC (Bld) 0.9 % Normal 0.0-2.0 [facility] Comment on above: Order Comment: Order Added by Discern Expert. Performed By: #### 2 643589, 2566808, 99610771, 96621828, 7297400, 2019530 ####[facility] [address] [place] [address] Basophils/Leukocytes Auto (Bld) [Pure # fraction] 0.1 E9/L Normal 0.0-0.2 [facility] Comment on above: Order Comment: Order Added by Discern Expert. Performed By: #### 2 058403, 5505482, 35584117, 47692621, 3671868, 4061832 ####[facility] [address] [place] [address] Eosinophils/100 WBC (Bld) 3.3 % Normal 0.0-8.0 [facility] Comment on above: Order Comment: Order Added by Discern Expert. Performed By: #### 2 266934, 5250739, 27339344, 38117684, 7299609, 5828589 ####[facility] [address] [place] [address] Eosinophils/Leukocytes Auto (Bld) [Pure # fraction] 0.4 E9/L Normal 0.0-0.5 [facility] Comment on above: Order Comment: Order Added by Discern Expert. Performed By: #### 2 304167, 8423064, 99140846, 29665500, 9017368, 3921865 ####[address] [address] Lymphocytes/100 WBC (Bld) 10.4 % Low 14.0-50.0 [facility] Comment on above: Order Comment: Order Added by Discern Expert. Performed By: #### 2 525335, 4434834, 52278109, 97228382, 5190494, 3101508 ####[address] [address] Lymphocytes/Leukocytes Auto (Bld) [Pure # fraction] 1.2 E9/L Normal 1.0-4.0 [facility] Comment on above: Order Comment: Order Added by Discern Expert. Performed By: #### 2 799417, 0628710, 39279566, 74563943, 8525380, 3570157 ####[place] [address] [place] [address] Monocytes/100 WBC (Bld) 7.4 % Normal 4.0-14.0 [facility] Comment on above: Order Comment: Order Added by Discern Expert. Performed By: #### 2 244430, 6279062, 40734490, 81044579, 8247392, 3964097 ####[facility] [address] [place] [address] Monocytes/Leukocytes Auto (Bld) [Pure # fraction] 0.9 E9/L Normal 0.2-1.0 [facility] Comment on above: Order Comment: Order Added by Discern Expert. Performed By: #### 2 962204, 5484187, 21792240, 86346973, 9026424, 7010199 ####[place] [address] [place] [address] Neutrophils/100 WBC (Bld) 78.0 % High 36.0-75.0 [facility] Comment on above: Order Comment: Order Added by Discern Expert. Performed By: #### 2 992898, 9386707, 00516239, 27983130, 7453476, 6071784 ####[place] [address] [place] [address] Neutrophils/Leukocytes Auto (Bld) [Pure # fraction] 9.1 E9/L High 2.0-7.5 [facility] Comment on above: Order Comment: Order Added by Discern Expert. Performed By: #### 2 957175, 9706125, 66520024, 12436647, 0117395, 7065052 ####[facility] [address] [place] [address] BMPon 01-21-2023 Creatinine [Mass/Vol] 1.2 mg/dL Normal 0.5-1.3 [facility] Comment on above: Performed By: #### 2 286075, 4159459, 21256545, 12355701, 0612676, 9364952 ####[facility] [address] [place] [address] Urea nitrogen [Mass/Vol] 38 mg/dL High 5-21 [facility] Comment on above: Performed By: #### 2 125038, 2622490, 45764726, 43301284, 3922066, 7753574 ####[facility] [address] [place] [address] Urea nitrogen/Creatinine [Mass ratio] 32 No Units High 10-20 [facility] Comment on above: Performed By: #### 2 685873, 8728724, 49086916, 70261111, 2606962, 6660306 ####[facility] [address] [place] [address] Anion gap [Moles/Vol] 14 mmol/L Normal 6-16 [facility] Comment on above: Performed By: #### 2 932604, 9943004, 35187022, 17184990, 0951190, 3282240 ####[facility] [address] [place] [address] Calcium [Mass/Vol] 9.9 mg/dL Normal 8.9-11.1 [facility] Comment on above: Performed By: #### 2 904920, 3610017, 21098256, 79728154, 7440892, 3676203 ####[facility] [address] [place] [address] Chloride [Moles/Vol] 95 mmol/L Low 101-[address] [facility] Comment on above: Performed By: #### 2 594703, 5137379, 53049724, 67127600, 6537960, 0492670 ####[facility] [address] [place] [address] CO2 [Moles/Vol] 31 mmol/L Normal 21-31 [facility] Comment on above: Performed By: #### 2 321818, 9179596, 14718612, 88127625, 0874084, 8108414 ####[facility] [address] [place] [address] Glucose [Mass/Vol] 124 mg/dL Normal 55-199 [facility] Comment on above: Result Comment: If t his glucose result represents a fasting glucose, interpretation should refer to the following reference range: 55-99 mg/dL Performed By: #### 2 279672, 0849477, 82726909, 50967286, 4071642, 6640954 ####[facility] [address] [place] [address] Potassium [Moles/Vol] 4.3 mmol/L Normal 3.5-5.3 [facility] Comment on above: Performed By: #### 2 716880, 3446615, 12127422, 57202828, 5523099, 0531609 ####[facility] [address] [place] [address] Sodium [Moles/Vol] 136 mmol/L Normal 135-145 [facility] Comment on above: Performed By: #### 2 458010, 3088379, 70722284, 07665137, 6123583, 4556045 ####[facility] [address] [place] [address] CBC w/ Auto Diffon Erythrocyte distribution width (RBC) [Ratio] 15.4 % High 10.9-14.2 [facility] Comment on above: Performed By: #### 2 449952, 4595537, 08568806, 18888851, 5218185, 2499656 ####[facility] [address] [place] [address] Hematocrit (Bld) [Volume fraction] 42.5 % Normal 37.7-49.0 [facility] Comment on above: Performed By: #### 2 941271, 6283054, 74115294, 62050074, 6410226, 8638017 ####[facility] [address] [place] [address] Hemoglobin (Bld) [Mass/Vol] 13.9 g/dL Normal 13.5-17.5 [facility] Comment on above: Performed By: #### 2 071628, 3975825, 14880487, 83691299, 7734143, 7099499 ####[facility] [address] [place] [address] MCH (RBC) [Entitic mass] 27.3 pg Normal 27.0-34.0 [facility] Comment on above: Performed By: #### 2 660630, 0377304, 76479115, 45016805, 0712551, 5019202 ####[facility] [address] [place] [address] MCHC (RBC) [Mass/Vol] 32.7 g/dL Normal 31.4-36.0 [facility] Comment on above: Performed By: #### 2 380236, 0117882, 04366199, 83907461, 0705063, 0398120 ####[place] [address] MCV (RBC) [Entitic vol] 83.4 fL Normal 80.0-100.0 F [facility] Comment on above: Performed By: #### 2 530144, 4413500, 10306626, 08825944, 2613491, 4130872 ####[address] [address] Platelet mean volume (Bld) [Entitic vol] 8.6 fL Normal 6.4-10.8 [facility] Comment on above: Performed By: #### 2 917586, 3390385, 62505496, 90350417, 7555499, 8670759 ####[address] [address] Platelets (Bld) [#/Vol] 252.0 E9/L Normal 150.0-500.0 [facility] Comment on above: Performed By: #### 2 281802, 6486998, 77569985, 48830772, 6475984, 4146515 ####[address] [address] RBC (Bld) [#/Vol] 5.1 E12/L Normal 4.3-5.9 [facility] Comment on above: Performed By: #### 2 757786, 3609301, 53050092, 76438526, 7353380, 5580972 ####[facility] [address] [place] [address] WBC corrected for nucl RBC Auto (Bld) [#/Vol] 11.6 E9/L High 4.0-11.0 [facility] Comment on above: Performed By: #### 2 514063, 9995712, 12604471, [id number], 7574514, [id number] ####[facility] [address] [place] [address] CHEMISTRYOrdered By: SYSTEM SYSTEM on 01-21-2023 Troponin [...] Treatmenton 12-24 Consent for Treatment [id number] .[id number]:127 Normal [facility] ED Clinical Summaryon 2022 ED Clinical Summary Normal [facility] ED Note-Physicianon 01-22-20 ED Note-Physician Normal [facility] Comment on above: Result Comment: Elec tronically Signed By: Gustavo Yusuf DO.br\Date and Time Signed: 01/21/23 19:26 EDT ED Patient Education Noteon 01-21-2023 ED Patient Education Note Normal [facility] ED Patient Summaryon 023 ED Patient Summary Normal [facility] HEMATOLOGYOrdered By: SYSTEM SYSTEM on [...] 5.1 E12/L Normal 4.3 - 5.9 E12/L [facility] HemeAutoSS WBC corrected for nucl RBC Auto (Bld) [#/Vol] 11.6 E9/L High 4.0 - 11.0 E9/L [facility] HemeAutoSS Hep Func Panelon 01-21-2023 Bilirubin.direct [Mass/Vol] 0.1 mg/dL Normal 0.1-0.4 [facility] Comment on above: Performed By: #### 2 928117, 1590550, 51333505, 24639121, 2531550, 2889324 ####[facility] [address] [place] [address] Bilirubin.indirect [Mass or moles/Vol] 0.8 mg/dL Normal 0.1-0.9 [facility] Comment on above: Performed By: #### 2 380227, 1715590, 94228226, 51108817, 3876339, 9536442 ####[facility] [address] [place] [address] Albumin [Mass/Vol] 3.9 g/dL Normal 3.3-5.0 [facility] Comment on above: Performed By: #### 2 484194, 8663574, 70849830, 74968812, 2851139, 0853871 ####[facility] [address] [place] [address] Albumin/Globulin (S) [Mass conc ratio] 1.0 Low 1.1-2.2 [facility] Comment on above: Performed By: #### 2 209427, 1345967, 77084238, 47743437, 4702410, 3443087 ####[address] [place] [address] ALP [Catalytic activity/Vol] 50 Int._Unit/L Normal 21-98 [facility] Comment on above: Performed By: #### 2 046283, 4292111, 22574342, 20262260, 7990624, 1392808 ####[facility] [address] [place] [address] ALT No additional P-5'-P [Catalytic activity/Vol] 23 Int._Unit/L Normal 6-46 [facility] Comment on above: Performed By: #### 2 578615, 1115375, 25802666, 34116266, 6043727, 6154810 ####[facility] [address] [place] [address] AST [Catalytic activity/Vol] 22 Int._Unit/L Normal 5-43 [facility] Comment on above: Performed By: #### 2 730886, 8131984, 11388300, 73275101, 0082414, 4615717 ####[facility] [address] [place] [address] Bilirubin [Mass/Vol] 0.9 mg/dL Normal 0.0-1.[address] [facility] Comment on above: Performed By: #### 2 287208, 6398045, 32248405, 50677530, 0649202, 3941186 ####[facility] [address] [place] [address] Globulin (S) [Mass/Vol] 3.8 g/dL Normal 1.4-4.0 F [facility] Comment on above: Performed By: #### 2 075328, 5664376, 64669645, 40837113, 8123773, 8176520 ####[facility] [address] [place] [address] Protein [Mass/Vol] 7.7 g/dL Normal 6.0-7.8 [facility] Comment on above: Performed By: #### 2 034246, 0905608, 99301419, 43850085, 5396119, 5055370 ####[facility] [address] [place] [address] Intermediate Recordson 01-21 Intermediate Records [id number]# 1.00CD:127 Normal [facility] Troponin 0 Hr.on 01-21-2023 Troponin I.cardiac [Mass/Vol] 25.50 pg/mL Normal 15.90-38.40 [facility] Comment on above: Result Comment: The 95% CI (Confidence Interval) PPV (Positive Predictive Value) for myocardial infarction in females is 38 pg/mL, in males 51 pg/mL. The results should be used in conjunction with clinical conditions of myocardial infarction.(Access High Sensitivity Troponin I Instructions For Use, [place] [employer] [place], December 2017) Performed By: #### 2 952506, 9893068, 73517618, 75461577, 0839140, 5058356 ####[address] [address] Troponin 3 Hr.on 01-21-2023 Troponin I.cardiac [Mass/Vol] 23.90 pg/mL Normal 15.90-38.40 [facility] Comment on above: Result Comment: The 95% CI (Confidence Interval) PPV (Positive Predictive Value) for myocardial infarction in females is 38 pg/mL, in males 51 pg/mL. The results should be used in conjunction with clinical conditions of myocardial infarction.(qcue High Sensitivity Troponin I Instructions For Use, [place], December 2017) Performed By: #### 1 [id number] ####[address] [address] UA With Cult Reflexon 2022 Bilirubin Ql (U) Negative Normal Negative [facility] Comment on above: Performed By: #### 1 2034827 ####[address] [address] Clarity (U) CLEAR Normal Clear [facility] Comment on above: Performed By: #### 1 4778617 ####[address] [address] Color (U) STRAW Abnormal Yellow [facility] Comment on above: Performed By: #### 1 9706743 ####[address] [address] Epithelial cells.squamous LM.HPF (Urine sed) [#/Area] 0-2 Normal 0-2 [facility] Comment on above: Performed By: #### 1 8784982 ####[address] [address] Glucose Test strip (U) [Mass/Vol] Negative Normal Negative [facility] Comment on above: Performed By: #### 1 0324663 ####[address] [address] Hemoglobin Ql (U) Negative Normal Negative [facility] Comment on above: Performed By: #### 1 3317452 ####[address] [address] Ketones (U) [Mass/Vol] Negative Normal Negative [facility] Comment on above: Performed By: #### 1 4946221 ####[address] [address] [place].plasma/[place].R BC (Bld) [Mass ratio] 0-3 Normal 0-3 [facility] Comment on above: Performed By: #### 1 6374723 ####[address] [address] Nitrite Ql (U) Negative Normal Negative [facility] Comment on above: Performed By: #### 1 7517979 ####[address] [address] pH (U) 6.0 [pH] Invalid Interpretation Code 5.0-9.0 [facility] Comment on above: Performed By: #### 1 0455644 ####[address] [address] Protein (U) [Mass/Vol] Negative Normal Negative [facility] Comment on above: Performed By: #### 1 6480576 ####[address] [address] Specific gravity (U) [Rel density] 1.010 Invalid Interpretation Code 1.005-1.030 [facility] Comment on above: Performed By: #### 1 7332081 ####[address] [address] Type of Urine collection method Clean Catch Normal [facility] Comment on above: Performed By: #### 1 7907230 ####[facility] [address] [place] [address] Urobilinogen Qn (U) 0.2 {Lei'U}/dL Normal 0.0-1.0 [facility] Comment on above: Performed By: #### 1 6702643 ####[facility] [address] [place] [address] WBC Auto Ql (U) Negative Normal Negative [facility] Comment on above: Performed By: #### 1 1034272 ####[facility] [address] [place] [address] WBC LM.HPF (Urine sed) [#/Area] 0-5 Normal 0-5 [facility] Comment on above: Performed By: #### 1 3125710 ####[facility] [address] [place] [address] URINALYSISOrdered By: Karen Vergara on 01-21-2023 Bilirubin [...] PM) Normal Negative [facility] UA Auto SS [place].plasma/[place].R BC (Bld) [Mass ratio] 0-3 /HPF Normal 0-3/HPF [facility] UA Au to SS Nitrite Ql (U) Negative (01/21/23 4:41 PM) Normal Negative [facility] UA Auto SS pH (U) 6.0 *NA* (01/21/23 4:41 PM) Invalid Interpretation Code 5.0 - 9.0 [facility] UA Auto SS Protein (U) [Mass/Vol] Negative (01/21/23 4:41 PM) Normal Negative [facility] UA Auto SS Specific gravity (U) [Rel density] 1.010 *NA* (01/21/23 4:41 PM) Invalid Interpretation Code 1.005 - 1.030 [facility] UA Auto SS UA Spec Desc Clean Catch (01/21/23 4:41 PM) Normal [facility] UA Auto SS Urobilinogen Qn (U) 0.6118655 {Lei'U}/dL Normal 0.0 - 1.0 EU/dL [facility] UA Auto SS WBC Auto Ql (U) Negative (01/21/23 4:41 PM) Normal Negative [facility] UA Auto SS WBC LM.HPF (Urine sed) [#/Area] 0-5 /HPF Normal 0-5/HPF [facility] UA Auto SS XR Chest Single Viewon 01-21 XR Chest Single View Normal [facility] eGFRon 01-21-2023 GFR/1.73 sq M.predicted among non-blacks MDRD (S/P/Bld) [Vol rate/Area] 62 mL/min/1.73 m2 Normal >=59 [facility] Comment on above: Order Comment: Order added by Discern Expert. Result Comment: Polishing Machine Operator Helper earnest kidney disease could be indicated at eGFR's of less than 60 mL/min/1.73m2. Kidney failure is indicated at less than 15 mL/min/1.73m2. Performed By: #### 2 188898, 0294158, 86450264, 50308217, 5981060, 1157032 ####[facility] [address] [place] [address] Discharge Instructionson Discharge Instructions [id number] .[id number]:127 Normal [facility] Capillary Glucose POCon 12-23 Glucose [Mass/Vol] 117 mg/dL High 55-99 [facility] Comment on above: Result Comment: Yazmin bri Meter Performed By: #### 2 36894149 ####[facility] [address] [place] [address] Family Medicine Office/Clini c Noteon 01-15-2023 Family Medicine Office/Clinic Note Normal [facility] Comment on above: Result Comment: Elec tronically Signed By: SHAISTA POTTS, Dennise.br\Date and Time Signed: 01/15/23 16:46 EDT Capillary Glucose POCon 12-23 Glucose [Mass/Vol] 121 mg/dL High [address] [place] [address] Comment on above: Result Comment: Yazmin bri Meter Performed By: #### 2 [id number] ####[facility] [address] [place] [address] Capillary Glucose POCon 12-23 Glucose [Mass/Vol] 127 mg/dL [address] Comment on above: Result Comment: Yazmin bri Meter Performed By: #### 2 39894240 ####[facility] [address] [place] [address] Capillary Glucose POCon 12-22 Glucose [Mass/Vol] 104 mg/dL [address] Comment on above: Result Comment: Yazmin bri Meter Performed By: #### 2 79767360 ####[facility] [address] [place] [address] Capillary Glucose POCon 12-22 Glucose [Mass/Vol] 121 mg/dL [address] Comment on above: Result Comment: Yazmin bri Meter Performed By: #### 2 82168940 ####[facility] [address] [place] [address] Capillary Glucose POCon 12-22 Glucose [Mass/Vol] 110 mg/dL [address] Comment on above: Result Comment: Yazmin bri Meter Performed By: #### 2 94431450 ####[facility] [address] [place] [address] Capillary Glucose POCon 12-22 Glucose [Mass/Vol] 119 mg/dL [address] Comment on above: Result Comment: Yazmin bri Meter Performed By: #### 2 59086450 ####[facility] [address] [place] [address] Capillary Glucose POCon 12-22 Glucose [Mass/Vol] 141 mg/dL High 55-99 [facility] Comment on above: Result Comment: Yazmin bri Meter Performed By: #### 2 48517583 ####[facility] [address] [place] [address] Capillary Glucose POCon 12-22 Glucose [Mass/Vol] 104 mg/dL High 55-99 [facility] Comment on above: Result Comment: Yazmin bri Meter Performed By: #### 2 64340172 ####[facility] [address] [place] [address] BMPon 12-30-2022 Calcium [Mass/Vol] 9.1 mg/dL Normal 8.9-11.1 [facility] Comment on above: Performed By: #### 7 [id number], 8193270, 75544494 ####[facility] [address] [address] Anion gap [Moles/Vol] 18 mmol/L High 6-16 [facility] Comment on above: Performed By: #### 7 33548872, 9615507, 71645614 ####[facility] [address] [place] [address] Chloride [Moles/Vol] 91 mmol/L Low 101-[address] [facility] Comment on above: Performed By: #### 7 82987017, 1651221, 42769370 ####[facility] [address] [place] [address] CO2 [Moles/Vol] 30 mmol/L Normal 21-31 [facility] Comment on above: Performed By: #### 7 72733870, 2808380, 86768048 ####[facility] [address] [place] [address] Creatinine [Mass/Vol] 1.3 mg/dL Normal 0.5-1.3 [facility] Comment on above: Performed By: #### 7 78516487, 9049677, 46807679 ####[facility] [address] [place] [address] Glucose [Mass/Vol] 171 mg/dL Normal 55-199 [facility] Comment on above: Result Comment: If t his glucose result represents a fasting glucose, interpretation should refer to the following reference range: 55-99 mg/dL Performed By: #### 7 75644574, 2411457, 45545054 ####[facility] [address] [place] [address] Potassium [Moles/Vol] 4.2 mmol/L Normal 3.5-5.3 [facility] Comment on above: Performed By: #### 7 52701623, 5704828, 86641791 ####[facility] [address] [place] [address] Sodium [Moles/Vol] 135 mmol/L Normal 135-145 [facility] Comment on above: Performed By: #### 7 95939867, 5850921, 57830288 ####[facility] [address] [place] [address] Urea nitrogen [Mass/Vol] 36 mg/dL High 5-21 [facility] Comment on above: Performed By: #### 7 10971644, 3684221, 50888475 ####[facility] [address] [place] [address] Urea nitrogen/Creatinine [Mass ratio] 28 No Units High 10-20 [facility] Comment on above: Performed By: #### 7 57649109, 1143614, 66232106 ####[facility] [address] [place] [address] MjaO4rod 12-30-2022 HbA1c (Bld) [Mass fraction] 6.9 % High <=5.9 [facility] Comment on above: Performed By: #### 7 52574998, 0175628, 13520885 ####[facility] [address] [place] [address] eGFRon 12-30-2022 GFR/1.73 sq M.predicted among non-blacks MDRD (S/P/Bld) [Vol rate/Area] 56 mL/min/1.73 m2 Low >=59 [facility] Comment on above: Order Comment: Order added by Discern Expert. Result Comment: Polishing Machine Operator Helper earnest kidney disease could be indicated at eGFR's of less than 60 mL/min/1.73m2. Kidney failure is indicated at less than 15 mL/min/1.73m2. Performed By: #### 7 [id number], 5916521, 83808461 ####[facility] [address] [place] [address] Capillary Glucose POCon 08-0 Glucose [Mass/Vol] 141 mg/dL [facility] 55-99 [facility] Comment on above: Result Comment: Yazmin bri Meter Performed By: #### 2 80255690 ####[facility] [address] [place] [address] Capillary Glucose POCon 08-0 Glucose [Mass/Vol] 101 mg/dL [address] Comment on above: Result Comment: Yazmin bri Meter Performed By: #### 2 27141501 ####[facility] [address] [place] [address] C Blood Charcoalon 3 Blood Culture Charcoal Normal [facility] Comment on above: Performed By: #### 1 4558124 ####[facility] [address] [place] [address] Capillary Glucose POCon 08-0 Glucose [Mass/Vol] 135 mg/dL [facility] [address] [place] [address] Comment on above: Result Comment: Yazmin bri Meter Performed By: #### 2 56290466 ####[facility] [address] [facility] [place] [address] Capillary Glucose POCon 08-0 Glucose [Mass/Vol] 110 mg/dL [facility] 55-99 [facility] Comment on above: Result Comment: Yazmin bri Meter Performed By: #### 2 66713872 ####[facility] [address] [place] [address] Consultation Noteon 12-24-19 Consultation Note Normal [facility] Comment on above: Result Comment: Elec tronically Signed By: Marcus POTTS, [place]\.br\Date and Time Signed: 12/23/22 07:33 EDT Family Medicine Office/Clini c Noteon 12-23-2022 Family Medicine Office/Clinic Note Normal [facility] Comment on above: Result Comment: Elec tronically Signed By: SHAISTA POTTS, Donta\.br\Date and Time Signed: 12/22/22 22:31 EDT C Blood Charcoalon Blood Culture Charcoal Normal [facility] Comment on above: Performed By: #### 1 [id number] ####[facility] [address] [place] [address] U Legi Agon 12-22-2022 L. pneumophila 1 Ag IA Ql (U) Negative Invalid Interpretation Code Negative [facility] Comment on above: Result Comment: Pres umptive negative for L. pneumophila serogroup 1 antigen in urine,suggesting no recent or current infection. Legionnaires' diseasecannot be ruled out since other serogroups and species may also causedisease.Performed at: [facility] [id number] MD Tyler Gurrola Performed By: #### 2 453040 ####[facility] [address] [place] [address] C Urineon 12-21-2022 Bacteria identified Cx Nom (U) Normal [facility] Comment on above: Performed By: #### 1 0538935, 6845942 ####[facility] [address] [place] [address] Capillary Glucose POCon 11-23 Glucose [Mass/Vol] 134 mg/dL High 55-99 [facility] Comment on above: Result Comment: Yazmin bri Meter Performed By: #### 2 40580898 ####[facility] [place] [address] [address] Auto DiffOrdered By: SYSTEM SYSTEM on 12-20-2022 Basophils/100 WBC (Bld) 0.5 % Normal 0.0-2.0 F C HemeAutoSS Comment on above: Order Comment: Order Added by Discern Expert. Performed By: #### 2 921287, 2214400, 71369637, 6494215 ####[address] [address] Basophils/Leukocytes Auto (Bld) [Pure # fraction] 0.0 E9/L Normal 0.0-0.2 [facility] HemeAutoSS Comment on above: Order Comment: Order Added by Bethany Expert. Performed By: #### 2 570458, 0592625, 32461134, 7851138 ####[address] [address] Eosinophils/100 WBC (Bld) 7.9 % Normal 0.0-8.0 [facility] HemeAutoSS Comment on above: Order Comment: Order Added by eBthany Expert. Performed By: #### 2 831202, 5098693, 67749922, 4641378 ####[address] [address] Eosinophils/Leukocytes Auto (Bld) [Pure # fraction] 0.8 E9/L High 0.0-0.5 [facility] HemeAutoSS Comment on above: Order Comment: Order Added by Bethany Expert. Performed By: #### 2 090565, 7807506, 93747530, 8744776 ####[address] [address] Lymphocytes/100 WBC (Bld) 9.5 % Low 14.0-50.0 [facility] HemeAutoSS Comment on above: Order Comment: Order Added by Bethany Expert. Performed By: #### 2 474878, 2438292, 93027561, 9475407 ####[address] [address] Lymphocytes/Leukocytes Auto (Bld) [Pure # fraction] 1.0 E9/L Normal 1.0-4.0 [facility] HemeAutoSS Comment on above: Order Comment: Order Added by Discern Expert. Performed By: #### 2 655934, 3923140, 84823811, 3365693 ####[address] [place] [address] Monocytes/100 WBC (Bld) 7.6 % Normal 4.0-14.0 [facility] HemeAutoSS Comment on above: Order Comment: Order Added by Discern Expert. Performed By: #### 2 391752, 8425503, 58923402, 0568318 ####[address] [address] Monocytes/Leukocytes Auto (Bld) [Pure # fraction] 0.8 E9/L Normal 0.2-1.0 [facility] HemeAutoSS Comment on above: Order Comment: Order Added by Discern Expert. Performed By: #### 2 054027, 9222200, 71518163, 2661396 ####[address] [address] Neutrophils/100 WBC (Bld) 74.5 % Normal 36.0-75.0 [facility] HemeAutoSS Comment on above: Order Comment: Order Added by Discern Expert. Performed By: #### 2 573019, 7572058, 27737371, 5474978 ####[address] [address] Neutrophils/Leukocytes Auto (Bld) [Pure # fraction] 7.7 E9/L High 2.0-7.5 [facility] HemeAutoSS Comment on above: Order Comment: Order Added by Discern Expert. Performed By: #### 2 878004, 4121140, 10553386, 8496909 ####[address] [address] BMPOrdered By: SYSTEM SYSTEM on 12-20-2022 Anion gap [Moles/Vol] 8 mmol/L Normal 6-16 [facility] C Remisol Comment on above: Performed By: #### 2 397652, 1736469, 27070756, 5071465 ####[address] [address] Calcium [Mass/Vol] 7.9 mg/dL Low 8.9-11.1 [facility] R emisol Comment on above: Performed By: #### 2 012808, 4313372, 45833542, 9638562 ####[facility] [address] [place] [address] Chloride [Moles/Vol] 105 mmol/L Normal 101-111 [facility] Remisol Comment on above: Performed By: #### 2 009525, 7223913, 50074088, 7578361 ####[facility] [address] [place] [address] CO2 [Moles/Vol] 25 mmol/L Normal 21-31 [facility] Ashwin luanne Comment on above: Performed By: #### 2 934193, 7501287, 14953946, 3158695 ####[facility] [address] [place] [address] Creatinine [Mass/Vol] 1.0 mg/dL Normal 0.5-1.3 [facility] C Remisol Comment on above: Performed By: #### 2 373039, 6558183, 08260814, 8808853 ####[facility] [address] [place] [address] Glucose [Mass/Vol] 106 mg/dL Normal 55-199 [facility] R emisol Comment on above: Result Comment: If t his glucose result represents a fasting glucose, interpretation should refer to the following reference range: 55-99 mg/dL Performed By: #### 2 811155, 0134034, 51402158, 8135106 ####[facility] [address] [place] [address] Potassium [Moles/Vol] 4.4 mmol/L Normal 3.5-5.3 [facility] C Remisol Comment on above: Performed By: #### 2 718977, 0743139, 00687816, 4108871 ####[facility] [address] [place] [address] Sodium [Moles/Vol] 134 mmol/L Low 135-145 [facility] R emisol Comment on above: Performed By: #### 2 385402, 1483016, 75236271, 8619176 ####[facility] [address] [place] [address] Urea nitrogen [Mass/Vol] 22 mg/dL High 5-21 [facility] Remisol Comment on above: Performed By: #### 2 263454, 6195893, 61567213, 4036917 ####[facility] [address] [place] [address] BMPon 12-20-2022 Urea nitrogen/Creatinine [Mass ratio] 22 No Units High 10-20 [facility] Comment on above: Performed By: #### 2 289559, 7576181, 32729171, 2204994 ####[address] [address] CBC w/ Auto DiffOrdered By: Bony Hdez on 12-20-2022 Erythrocyte distribution width (RBC) [Ratio] 14.7 % High 10.9-14.2 [facility] HemeAutoSS Comment on above: Performed By: #### 2 539234, 7105269, 56530989, 6162867 ####[address] [address] Hematocrit (Bld) [Volume fraction] 34.6 % Low 37.7-49.0 [facility] HemeAutoSS Comment on above: Performed By: #### 2 887246, 3942097, 57825171, 7595326 ####[address] [address] Hemoglobin (Bld) [Mass/Vol] 11.7 g/dL Low 13.5-17.5 [facility] HemeAutoSS Comment on above: Performed By: #### 2 388023, 5563418, 99902253, 5926213 ####[address] [address] MCH (RBC) [Entitic mass] 28.6 pg Normal 27.0-34.0 [facility] HemeAutoSS Comment on above: Performed By: #### 2 777778, 1739453, 10232810, 6070460 ####[place] [address] [address] MCHC (RBC) [Mass/Vol] 33.7 g/dL Normal 31.4-36.0 [facility] HemeAutoSS Comment on above: Performed By: #### 2 959191, 5145795, 66954418, 2622193 ####[place] [address] MCV (RBC) [Entitic vol] 84.7 fL Normal 80.0-100.0 [facility] HemeAutoSS Comment on above: Performed By: #### 2 848429, 7696399, 50943039, 7665343 ####[place] [address] Platelet mean volume (Bld) [Entitic vol] 9.5 fL Normal 6.4-10.8 [facility] HemeAutoSS Comment on above: Performed By: #### 2 490687, 3083456, 70434158, 7941873 ####[place] [address] Platelets (Bld) [#/Vol] 216.0 E9/L Normal 150.0-500.0 [facility] HemeAutoSS Comment on above: Performed By: #### 2 394764, 5145643, 27987532, 5497604 ####[place] [address] RBC (Bld) [#/Vol] 4.1 E12/L Low 4.3-5.9 [facility] HemeAutoSS Comment on above: Performed By: #### 2 430878, 0237190, 24998278, 7413358 ####[address] [address] WBC corrected for nucl RBC Auto (Bld) [#/Vol] 10.3 E9/L Normal 4.0-11.0 [facility] HemeAutoSS Comment on above: Performed By: #### 2 851365, 9183142, 41171325, 6868183 ####[address] [place] [address] CHEMISTRYOrdered By: Lab ROP User on 12-20-2022 Glucose [Mass/Vol] 109 mg/dL High 55 - 99 mg/dL [facility] POC Subsection Comment on above: Result Comment: Gareth GARDINER POC Device SN [id number] Invalid Interpretation Code [facility] POC Subsection POC User ID [id number] Invalid Interpretation Code [facility] POC Subsection POC Username SAMANTHA LAMBERT Invalid Interpretation Code [facility] POC Subsection CHEMISTRYOrdered By: SYSTEM SYSTEM on 12-20-2022 Urea nitrogen/Creatinine [Mass ratio] 22 mg/mg High 10 - 20 [facility] Remisol Capillary Glucose POCon 11-23 Glucose [Mass/Vol] 198 mg/dL High 55-99 [facility] Comment on above: Result Comment: Yazmin bri Meter Performed By: #### 2 [id number] ####[facility] [address] [place] [address] Glucose [Mass/Vol] 109 mg/dL High 55-99 [facility] Comment on above: Result Comment: Gareth GARDINER Performed By: #### 2 35079111 ####[facility] [address] [place] [address] Discharge Documentationon Discharge Documentation [id number]#1 .00CD:127 Normal [facility] Inpatient Patient Summaryon 12-20-2022 Inpatient Patient Summary [facility] Message from Medicareon 11-23 Message from Medicare [id number]# 1.00CD:127 Normal [facility] Monitor Recordon 12-20-2022 Monitor Record [id number]# 1.00CD:127 Normal [facility] Monitor Record [id number]# 1.00CD:127 Normal [facility] Monitor Record [id number]# 1.00CD:127 Normal [facility] Progress Note-Nurseon 2022 Progress Note-Nurse SBAR report called fanta Robert. Patient was transferred into wheelchair x2 stand pivot. Patient discharged to [facility] room 17. Transport by Samantha Lambert POCT. Normal [facility] Transfer Documentson 023 Transfer Documents [id number]#1 .00CD:127 Normal [facility] eGFROrdered By: SYSTEM SYSTE M on 12-20-2022 GFR/1.73 sq M.predicted among non-blacks MDRD (S/P/Bld) [Vol rate/Area] 77 mL/min/1.73 m2 Normal >=59 [facility] Chem S Comment on above: Order Comment: Order added by Discern Expert. Result Comment: Polishing Machine Operator Helper earnest kidney disease could be indicated at eGFR's of less than 60 mL/min/1.73m2. Kidney failure is indicated at less than 15 mL/min/1.73m2. Performed By: #### 2 378454, 0561218, 01333894, 3843535 ####[facility] [address] [place] [address] Auto Diffon 12-19-2022 Basophils/100 WBC (Bld) 0.4 % Normal 0.0-2.0 [facility] Comment on above: Order Comment: Order Added by Discern Expert. Performed By: #### 1 6798506, 4326298, 6275535, 0956806 ####[facility] [address] [place] [address] Basophils/Leukocytes Auto (Bld) [Pure # fraction] 0.0 E9/L Normal 0.0-0.2 [facility] Comment on above: Order Comment: Order Added by Discern Expert. Performed By: #### 1 8022641, 3331116, 0886683, 2886207 ####[facility] [address] [place] [address] Eosinophils/100 WBC (Bld) 4.2 % Normal 0.0-8.0 [facility] Comment on above: Order Comment: Order Added by Discern Expert. Performed By: #### 1 5001154, 8917299, 3922304, 8656769 ####[place] [address] [place] [address] Eosinophils/Leukocytes Auto (Bld) [Pure # fraction] 0.6 E9/L High 0.0-0.5 [facility] Comment on above: Order Comment: Order Added by Bethany Expert. Performed By: #### 1 9365713, 1519543, 2185299, 1703745 ####[address] [address] Lymphocytes/100 WBC (Bld) 7.3 % Low 14.0-50.0 [facility] Comment on above: Order Comment: Order Added by Bethany Expert. Performed By: #### 1 0963741, 4858102, 0177808, 7255140 ####[address] [address] Lymphocytes/Leukocytes Auto (Bld) [Pure # fraction] 1.0 E9/L Normal 1.0-4.0 [facility] Comment on above: Order Comment: Order Added by Bethany Expert. Performed By: #### 1 5313958, 6428355, 2672982, 6956614 ####[address] [address] Monocytes/100 WBC (Bld) 6.5 % Normal 4.0-14.0 [facility] Comment on above: Order Comment: Order Added by Bethany Expert. Performed By: #### 1 9252483, 9578224, 9552923, 3745619 ####[place] [address] [place] [address] Monocytes/Leukocytes Auto (Bld) [Pure # fraction] 0.9 E9/L Normal 0.2-1.0 [facility] Comment on above: Order Comment: Order Added by Bethany Expert. Performed By: #### 1 7908482, 5703331, 6715945, 1576828 ####[address] [address] Neutrophils/100 WBC (Bld) 81.6 % High 36.0-75.0 [facility] Comment on above: Order Comment: Order Added by Discern Expert. Performed By: #### 1 2036244, 8279964, 9623300, 9929543 ####[facility] [address] [place] [address] Neutrophils/Leukocytes Auto (Bld) [Pure # fraction] 10.7 E9/L High 2.0-7.5 [facility] Comment on above: Order Comment: Order Added by Discern Expert. Performed By: #### 1 4178177, 3692552, 4553098, 5843618 ####[facility] [address] [place] [address] BMPon 12-19-2022 Anion gap [Moles/Vol] 11 mmol/L Normal 6-16 [facility] Comment on above: Performed By: #### 1 1103137, 3192007, 0850436, 7048065 ####[facility] [address] [place] [address] Calcium [Mass/Vol] 8.5 mg/dL Low 8.9-11.1 [facility] Comment on above: Performed By: #### 1 7566710, 8024475, 5285578, 3247418 ####[facility] [address] [place] [address] Chloride [Moles/Vol] 103 mmol/L Normal 101-[address] [facility] Comment on above: Performed By: #### 1 5633545, 8025402, 3462678, 4540117 ####[facility] [address] [facility] [place] [address] CO2 [Moles/Vol] 28 mmol/L Normal 21-31 [facility] Comment on above: Performed By: #### 1 8032554, 7711865, 0630677, 7814550 ####[facility] [address] [place] [address] Creatinine [Mass/Vol] 1.2 mg/dL Normal 0.5-1.3 [facility] Comment on above: Performed By: #### 1 1316693, 4906121, 2897729, 8336933 ####[facility] [address] [place] [address] Glucose [Mass/Vol] 86 mg/dL Normal 55-199 [facility] Comment on above: Result Comment: If t his glucose result represents a fasting glucose, interpretation should refer to the following reference range: 55-99 mg/dL Performed By: #### 1 4724365, 8186333, 7180817, 4451050 ####[facility] [address] [place] [address] Potassium [Moles/Vol] 4.5 mmol/L Normal 3.5-5.3 [facility] Comment on above: Performed By: #### 1 0277624, 7400837, 5834865, 5832406 ####[facility] [address] [place] [address] Sodium [Moles/Vol] 137 mmol/L Normal 135-145 [facility] Comment on above: Performed By: #### 1 5917966, 0219646, 1407549, 9821781 ####[facility] [address] [place] [address] Urea nitrogen [Mass/Vol] 35 mg/dL High 5-21 [facility] Comment on above: Performed By: #### 1 2489026, 5218009, 0713295, 8585810 ####[facility] [address] [place] [address] Urea nitrogen/Creatinine [Mass ratio] 29 No Units High 10-20 [facility] Comment on above: Performed By: #### 1 0687412, 8350824, 6465284, 8471304 ####[facility] [address] [place] [address] CBC w/ Auto Diffon 3 Erythrocyte distribution width (RBC) [Ratio] 15.0 % High 10.9-14.2 [facility] Comment on above: Performed By: #### 1 2837831, 1260598, 0283625, 5350963 ####[facility] [address] [place] [address]957 Hematocrit (Bld) [Volume fraction] 38.4 % Normal 37.7-49.0 [facility] Comment on above: Performed By: #### 1 3919518, 6686817, 5530013, 0031674 ####[address] [address] Hemoglobin (Bld) [Mass/Vol] 12.7 g/dL Low 13.5-17.5 [facility] Comment on above: Performed By: #### 1 3347851, 4082765, 7111269, 1955368 ####[place] [address]57 MCH (RBC) [Entitic mass] 27.9 pg Normal 27.0-34.0 [facility] Comment on above: Performed By: #### 1 7218565, 5540205, 9533308, 3771714 ####[place] [address]57 MCHC (RBC) [Mass/Vol] 32.9 g/dL Normal 31.4-36.0 [facility] Comment on above: Performed By: #### 1 3768034, 0192563, 5053802, 5356814 ####[address] [address] MCV (RBC) [Entitic vol] 84.8 fL Normal 80.0-100.0 [facility] Comment on above: Performed By: #### 1 0230946, 5983996, 6577715, 3044718 ####[address] [address] Platelet mean volume (Bld) [Entitic vol] 9.5 fL Normal 6.4-10.8 [facility] Comment on above: Performed By: #### 1 1510279, 3166708, 8534517, 4026489 ####[address] [address] Platelets (Bld) [#/Vol] 230.0 E9/L Normal 150.0-500.0 [facility] Comment on above: Performed By: #### 1 7787171, 5348426, 5309044, 3820079 ####[facility] [address] [place] [address] RBC (Bld) [#/Vol] 4.5 E12/L Normal 4.3-5.9 [facility] Comment on above: Performed By: #### 1 0189282, 7691934, 0779052, 5161460 ####[facility] [address] [place] [address] WBC corrected for nucl RBC Auto (Bld) [#/Vol] 13.1 E9/L High 4.0-11.0 [facility] Comment on above: Performed By: #### 1 7398920, 4223084, 6622004, 2944355 ####[facility] [address] [place] [address] CHEMISTRYOrdered By: Lab ROP User on 12-19-2022 Glucose [Mass/Vol] 210 mg/dL High 55 - 99 mg/dL [facility] POC Subsection Comment on above: Result Comment: Gareth guerrero RN/ POC Device SN [id number] Invalid Interpretation Code [facility] POC Subsection POC User ID [id number] Invalid Interpretation Code [facility] POC Subsection POC Username SHER GAVIRIA Invalid Interpretation Code [facility] POC Subsection Glucose [Mass/Vol] 111 mg/dL High 55 - 99 mg/dL [facility] POC Subsection Comment on above: Result Comment: Gareth guerrero RN/ POC Device SN [id number] Invalid Interpretation Code [facility] POC Subsection POC User ID [id number] Invalid Interpretation Code [facility] POC Subsection POC Username KELLEN HERNANDEZ Invalid Interpretation Code [facility] POC Subsection CHEMISTRYOrdered By: SYSTEM SYSTEM on 12-19-2022 Anion gap [Moles/Vol] 11 mmol/L Normal 6 - 16 mEq/L [facility] Remisol Calcium [Mass/Vol] 8.5 mg/dL Low 8.9 - 11. 1 mg/dL [facility] Remisol Chloride [Moles/Vol] 103 mmol/L Normal 101 - 1 11 mmol/L [facility] Remisol CO2 [Moles/Vol] 28 mmol/L Normal 21 - 31 mmol/L [facility] Remisol Creatinine [Mass/Vol] 1.2 mg/dL Normal 0.5 - 1.3 mg/dL [facility] Remisol GFR/1.73 sq M.predicted among non-blacks MDRD (S/P/Bld) [Vol rate/Area] 62 mL/min/1.73 m2 Normal >=59mL/min/ 1.73 m2 [facility] Chem S Glucose [Mass/Vol] 86 mg/dL Normal 55 - 199 mg/dL [facility] Remisol Potassium [Moles/Vol] 4.5 mmol/L Normal 3.5 - 5.3 mmol/L [facility] Remisol Sodium [Moles/Vol] 137 mmol/L Normal 135 - 145 mmol/L [facility] Remisol Urea nitrogen [Mass/Vol] 35 mg/dL High 5 - 21 mg/dL [facility] Remisol Urea nitrogen/Creatinine [Mass ratio] 29 mg/mg High 10 - 20 [facility] Remisol Capillary Glucose POCon 11-22 Glucose [Mass/Vol] 210 mg/dL High 55-99 [facility] Comment on above: Result Comment: Gareth GARDINER Performed By: #### 2 [id number] ####[facility] [address] [place] [address] Glucose [Mass/Vol] 111 mg/dL High 55- [facility] Comment on above: Result Comment: Gareth GARDINER Performed By: #### 2 25652295 ####[facility] [address] [place] [address] Glucose [Mass/Vol] 201 mg/dL High 55- [facility] Comment on above: Result Comment: Gareth GARDINER Performed By: #### 2 10491493 ####[facility] [address] [place] [address] Glucose [Mass/Vol] 93 mg/dL Normal 55-99 [facility] Comment on above: Result Comment: Gareth GARDINER Performed By: #### 2 54961904 ####[facility] [address] [place] [address] HEMATOLOGYOrdered By: SYSTEM SYSTEM on 12-19-2022 Basophils/100 [...] 9.5 fL Normal 6.4 - 10.8 fL [facility] HemeAutoSS Platelets (Bld) [#/Vol] 230.0 E9/L Normal 150. 0 - 500.0 E9/L [facility] HemeAutoSS RBC (Bld) [#/Vol] 4.5 E12/L Normal 4.3 - 5.9 E12/L [facility] HemeAutoSS WBC corrected for nucl RBC Auto (Bld) [#/Vol] 13.1 E9/L High 4.0 - 11.0 E9/L [facility] HemeAutoSS Monitor Recordon 12-19-2022 Monitor Record [id number]# 1.00CD:127 Normal [facility] Monitor Record [id number]# 1.00CD:127 Normal [facility] Progress Note-Physicianon Progress Note-Physician Normal F [facility] Comment on above: Result Comment: Elec tronically Signed By: MICHAEL POTTS, Jamir\.br\Date and Time Signed: 12/19/22 09:47 EDT eGFRon 12-19-2022 GFR/1.73 sq M.predicted among non-blacks MDRD (S/P/Bld) [Vol rate/Area] 62 mL/min/1.73 m2 Normal >=59 [facility] Comment on above: Order Comment: Order added by Discern Expert. Result Comment: Polishing Machine Operator Helper earnest kidney disease could be indicated at eGFR's of less than 60 mL/min/1.73m2. Kidney failure is indicated at less than 15 mL/min/1.73m2. Performed By: #### 1 4780145, 4724895, 9288130, 4148293 ####[facility] [address] [place] [address] Auto Diffon 12-18-2022 Basophils/100 WBC (Bld) 0.4 % Normal 0.0-2.0 [facility] Comment on above: Order Comment: Order Added by Discern Expert. Performed By: #### 2 785150, 8177225 ####[facility] [address] [place] [facility] [place] [address] Basophils/Leukocytes Auto (Bld) [Pure # fraction] 0.1 E9/L Normal 0.0-0.2 [facility] Comment on above: Order Comment: Order Added by Discern Expert. Performed By: #### 2 182903, 1516049 ####[facility] [address] [facility] [place] [address] Eosinophils/100 WBC (Bld) 2.8 % Normal 0.0-8.0 [facility] Comment on above: Order Comment: Order Added by Discern Expert. Performed By: #### 2 132570, 5688473 ####[facility] [address] [place] [address] Eosinophils/Leukocytes Auto (Bld) [Pure # fraction] 0.4 E9/L Normal 0.0-0.5 [facility] Comment on above: Order Comment: Order Added by Discern Expert. Performed By: #### 2 759429, 8803964 ####[address] [place] [address] Lymphocytes/100 WBC (Bld) 9.0 % Low 14.0-50.0 [facility] Comment on above: Order Comment: Order Added by Discern Expert. Performed By: #### 2 733171, 6392337 ####[address] [address] Lymphocytes/Leukocytes Auto (Bld) [Pure # fraction] 1.3 E9/L Normal 1.0-4.0 [facility] Comment on above: Order Comment: Order Added by Discern Expert. Performed By: #### 2 537038, 1909723 ####[facility] [address] [facility] [place] [address] Monocytes/100 WBC (Bld) 8.3 % Normal 4.0-14.0 [facility] Comment on above: Order Comment: Order Added by Discern Expert. Performed By: #### 2 950306, 6482652 ####[facility] [address] [place] [address] Monocytes/Leukocytes Auto (Bld) [Pure # fraction] 1.3 E9/L High 0.2-1.0 [facility] Comment on above: Order Comment: Order Added by Discern Expert. Performed By: #### 2 677340, 6086147 ####[place] [address] [place] [address] Neutrophils/100 WBC (Bld) 79.5 % High 36.0-75.0 [facility] Comment on above: Order Comment: Order Added by Discern Expert. Performed By: #### 2 777632, 0916242 ####[address] [address] Neutrophils/Leukocytes Auto (Bld) [Pure # fraction] 11.9 E9/L High 2.0-7.5 [facility] Comment on above: Order Comment: Order Added by Bethany Expert. Performed By: #### 2 021736, 5312882 ####[address] [address] Basophils/100 WBC (Bld) 0.6 % Normal 0.0-2.0 [facility] Comment on above: Order Comment: Order Added by Bethany Expert. Performed By: #### 1 7928987, 3488867, 80242873, 2094178, 93545122, 79932141, 7127111 ####[address] [address] Basophils/Leukocytes Auto (Bld) [Pure # fraction] 0.1 E9/L Normal 0.0-0.2 [facility] Comment on above: Order Comment: Order Added by Bethany Expert. Performed By: #### 1 6536947, 8959652, 74242409, 8475100, 04334319, 44772088, 2778281 ####[address] [address] Eosinophils/100 WBC (Bld) 2.0 % Normal 0.0-8.0 [facility] Comment on above: Order Comment: Order Added by Bethany Expert. Performed By: #### 1 9954455, 3930396, 54752533, 8616019, 69310933, 24338795, 1143728 ####[place] [address] [place] [address] Eosinophils/Leukocytes Auto (Bld) [Pure # fraction] 0.3 E9/L Normal 0.0-0.5 [facility] Comment on above: Order Comment: Order Added by Discern Expert. Performed By: #### 1 3042597, 2771643, 78333846, 2621932, 59005938, 02709050, 4280335 ####[place] [address] [place] [address] Lymphocytes/100 WBC (Bld) 7.6 % Low 14.0-50.0 [facility] Comment on above: Order Comment: Order Added by Discern Expert. Performed By: #### 1 9760245, 8915911, 69061766, 8463997, 57137305, 75328180, 3495916 ####[address] [address] Lymphocytes/Leukocytes Auto (Bld) [Pure # fraction] 1.3 E9/L Normal 1.0-4.0 [facility] Comment on above: Order Comment: Order Added by Discern Expert. Performed By: #### 1 3795414, 3633567, 13087604, 4657643, 23163857, 97512741, 3939435 ####[address] [address] Monocytes/100 WBC (Bld) 7.8 % Normal 4.0-14.0 [facility] Comment on above: Order Comment: Order Added by Discern Expert. Performed By: #### 1 1764796, 6831584, 61733132, 7810742, 26208092, 95172530, 0314342 ####[place] [place] [address] Monocytes/Leukocytes Auto (Bld) [Pure # fraction] 1.3 E9/L High 0.2-1.0 [facility] Comment on above: Order Comment: Order Added by Discern Expert. Performed By: #### 1 9503581, 6935380, 32126180, 0495866, 11573966, 56927204, 5638515 ####[facility] [address] [place] [address] Neutrophils/100 WBC (Bld) 82.0 % High 36.0-75.0 [facility] Comment on above: Order Comment: Order Added by Discern Expert. Performed By: #### 1 0930858, 2643600, 86435550, 2917996, 52392107, 18370425, 8541450 ####[facility] [address] [place] [address] Neutrophils/Leukocytes Auto (Bld) [Pure # fraction] 13.7 E9/L High 2.0-7.5 [facility] Comment on above: Order Comment: Order Added by Discern Expert. Performed By: #### 1 6827236, 2742427, 33931563, 6226263, 77093853, 65717982, 2669627 ####[facility] [address] [place] [address] BMPon 12-18-2022 Creatinine [Mass/Vol] 1.6 mg/dL High 0.5-1.3 [facility] Comment on above: Performed By: #### 2 342972, 4538089, 4634209168, 69937579, 02002794 ####[facility] [address] [place] [address] Urea nitrogen [Mass/Vol] 47 mg/dL High 5-21 [facility] Comment on above: Performed By: #### 2 410540, 8728913, 5069886207, 05609983, 04485625 ####[facility] [address] [place] [address] Urea nitrogen/Creatinine [Mass ratio] 29 No Units High 10-20 [facility] Comment on above: Performed By: #### 2 910504, 4551085, 4215633850, 87467973, 22145648 ####[facility] [address] [place] [address] Anion gap [Moles/Vol] 12 mmol/L Normal 6-16 [facility] Comment on above: Performed By: #### 2 504522, 1682392, 9542626475, 55026176, 32531399 ####[facility] [address] [place] [address] Calcium [Mass/Vol] 8.7 mg/dL Low 8.9-11.1 [facility] Comment on above: Performed By: #### 2 388860, 4447442, 9029292323, 52695408, 43320110 ####[facility] [address] [place] [place] [address] Chloride [Moles/Vol] 97 mmol/L Low 101-[address] [facility] Comment on above: Performed By: #### 2 131329, 7380997, [id number], 11782407, 64705253 ####[facility] [address] [place] [address] CO2 [Moles/Vol] 32 mmol/L High 21-31 [facility] Comment on above: Performed By: #### 2 625744, 8812073, [id number], 55543155, 85347052 ####[facility] [address] [place] [address] Glucose [Mass/Vol] 131 mg/dL Normal 55-199 [facility] Comment on above: Result Comment: If t his glucose result represents a fasting glucose, interpretation should refer to the following reference range: 55-99 mg/dL Performed By: #### 2 293433, 9978200, [id number], 79812249, 48797221 ####[facility] [address] [place] [address] Potassium [Moles/Vol] 3.7 mmol/L Normal 3.5-5.3 [facility] Comment on above: Performed By: #### 2 075840, 5761106, 5664733865, 23915174, 44564606 ####[facility] [address] [place] [address] Sodium [Moles/Vol] 137 mmol/L Normal 135-145 [facility] Comment on above: Performed By: #### 2 001368, 7151697, [id number], 95772044, 18104905 ####[facility] [address] [place] [address] Creatinine [Mass/Vol] 1.8 mg/dL High 0.5-1.3 [facility] Comment on above: Performed By: #### 1 0447283, 8841906, 82343103, 8066500, 90322754, 72123947, 7103937 ####[facility] [address] [place] [address] Urea nitrogen [Mass/Vol] 49 mg/dL High 5-21 [facility] Comment on above: Performed By: #### 1 3856534, 6403124, 71169324, 0908788, 95679107, 06115764, 4572992 ####[facility] [address] [place] [address] Urea nitrogen/Creatinine [Mass ratio] 27 No Units High 10-20 [facility] Comment on above: Performed By: #### 1 2082805, 9651124, 12530608, 4106477, 40929335, 93757909, 8375426 ####[facility] [address] [place] [address] Anion gap [Moles/Vol] 18 mmol/L High 6-16 [facility] Comment on above: Performed By: #### 1 4780832, 0827429, 22301363, 6731134, 54829283, 03920611, 5362557 ####[facility] [address] [place] [address] Calcium [Mass/Vol] 9.3 mg/dL Normal 8.9-11.1 [facility] Comment on above: Performed By: #### 1 9526169, 3408178, 11012689, 6399468, 93953873, 16384724, 4692109 ####[facility] [address] [place] [address] Chloride [Moles/Vol] 93 mmol/L Low 101-111 [facility] Comment on above: Performed By: #### 1 4530488, 5132109, 28331897, 1145273, 34953883, 81158017, 9785987 ####[facility] [address] [place] [address] CO2 [Moles/Vol] 29 mmol/L Normal 21-31 [facility] Comment on above: Performed By: #### 1 5534045, 4311990, 27894984, 9262707, 61668323, 71473013, 4490448 ####[facility] [address] [place] [address] Glucose [Mass/Vol] 137 mg/dL Normal 55-199 [facility] Comment on above: Result Comment: If t his glucose result represents a fasting glucose, interpretation should refer to the following reference range: 55-99 mg/dL Performed By: #### 1 2739504, 8895572, 84311448, 4876257, 86686481, 49110754, 3449147 ####[facility] [address] [place] [address] Potassium [Moles/Vol] 4.0 mmol/L Normal 3.5-5.3 [facility] Comment on above: Performed By: #### 1 3781809, 0801865, 14297871, 5218951, 14505210, 17911586, 0185892 ####[facility] [address] [place] [address] Sodium [Moles/Vol] 136 mmol/L Normal 135-145 [facility] Comment on above: Performed By: #### 1 6733497, 8723675, 19668331, 1512724, 09784915, 53122695, 7620398 ####[facility] [address] [place] [address] BNPon 12-18-2022 Int Ctr BNP Pass Normal [facility] Comment on above: Performed By: #### 1 6815384, 6600092, 37344060, 4576644, 29709684, 04037982, 1641646 ####[address] [place] [address] Natriuretic peptide B (Bld) [Mass/Vol] 219 pg/mL High 5-80 [facility] Comment on above: Performed By: #### 1 2288154, 2333325, 59632728, 5548442, 55923043, 45008402, 6144744 ####[address] [address] CBC w/ Auto Diffon Erythrocyte distribution width (RBC) [Ratio] 14.8 % High 10.9-14.2 [facility] Comment on above: Performed By: #### 2 920959, 5541091 ####[place] [address] Hematocrit (Bld) [Volume fraction] 37.8 % Normal 37.7-49.0 [facility] Comment on above: Performed By: #### 2 728493, 8168874 ####[place] [address] Hemoglobin (Bld) [Mass/Vol] 12.7 g/dL Low 13.5-17.5 [facility] Comment on above: Performed By: #### 2 993842, 6119961 ####[address] [address] MCH (RBC) [Entitic mass] 28.3 pg Normal 27.0-34.0 [facility] Comment on above: Performed By: #### 2 689008, 2922111 ####[address] [address] MCHC (RBC) [Mass/Vol] 33.6 g/dL Normal 31.4-36.0 [facility] Comment on above: Performed By: #### 2 154728, 0724062 ####[address] [address] MCV (RBC) [Entitic vol] 84.2 fL Normal 80.0-100.0 [facility] Comment on above: Performed By: #### 2 932937, 6362848 ####[address] [address] Platelet mean volume (Bld) [Entitic vol] 9.2 fL Normal 6.4-10.8 [facility] Comment on above: Performed By: #### 2 500346, 7316284 ####[address] [address] Platelets (Bld) [#/Vol] 219.0 E9/L Normal 150.0-500.0 [facility] Comment on above: Performed By: #### 2 630844, 0912662 ####[place] [address] RBC (Bld) [#/Vol] 4.5 E12/L Normal 4.3-5.9 [facility] Comment on above: Performed By: #### 2 939781, 1452563 ####[place] [address] WBC corrected for nucl RBC Auto (Bld) [#/Vol] 15.0 E9/L High 4.0-11.0 [facility] Comment on above: Performed By: #### 2 764007, 2810364 ####[place] [address] Erythrocyte distribution width (RBC) [Ratio] 14.9 % High 10.9-14.2 [facility] Comment on above: Performed By: #### 1 8178149, 2084665, 57860491, 1287697, 53113922, 89491186, 4007713 ####[address] [address] Hematocrit (Bld) [Volume fraction] 42.8 % Normal 37.7-49.0 [facility] Comment on above: Performed By: #### 1 2603186, 4607850, 02702323, 7797168, 36086210, 84774806, 7569630 ####[facility] [address] [place] [address] Hemoglobin (Bld) [Mass/Vol] 14.3 g/dL Normal 13.5-17.5 [facility] Comment on above: Performed By: #### 1 8438673, 9188200, 24095688, 8205659, 38213128, 84192462, 3881523 ####[facility] [address] [place] [address] MCH (RBC) [Entitic mass] 28.1 pg Normal 27.0-34.0 [facility] Comment on above: Performed By: #### 1 0434318, 5927023, 26177065, 3408947, 94139489, 15542926, 3404275 ####[place] [address] MCHC (RBC) [Mass/Vol] 33.3 g/dL Normal 31.4-36.0 [facility] Comment on above: Performed By: #### 1 9910981, 4731361, 84425539, 9592639, 18119328, 47749425, 1832373 ####[address] [address] MCV (RBC) [Entitic vol] 84.3 fL Normal 80.0-100.0 [facility] Comment on above: Performed By: #### 1 4751886, 7273300, 76607001, 4336947, 09901013, 57954418, 5970720 ####[address] [place] [address] Platelet mean volume (Bld) [Entitic vol] 9.8 fL Normal 6.4-10.8 [facility] Comment on above: Performed By: #### 1 1580205, 2681076, 19427287, 1808390, 16271921, 28019573, 8956640 ####[address] [place] [address] Platelets (Bld) [#/Vol] 234.0 E9/L Normal 150.0-500.0 [facility] Comment on above: Performed By: #### 1 5516522, 1254786, 69608821, 9002713, 11425266, 75723677, 5652429 ####[facility] [address] [place] [address] RBC (Bld) [#/Vol] 5.1 E12/L Normal 4.3-5.9 [facility] Comment on above: Performed By: #### 1 7277389, 4843181, 00938967, 5141792, 68754890, 26101778, 2794696 ####[facility] [address] [place] [address] WBC corrected for nucl RBC Auto (Bld) [#/Vol] 16.7 E9/L High 4.0-11.0 [facility] Comment on above: Result Comment: Slid e reviewed by JENNIFER. Performed By: #### 1 4033873, 7589944, 31796353, 6914146, 41465898, 06095920, 0319693 ####[facility] [address] [place] [address] CHEMISTRYOrdered By: SYSTEM SYSTEM on 12-18-2022 Troponin [...] 44 mL/min/1.73 m2 Low >=59mL/min/ 1.73 m2 [facility] Chem S Glucose [Mass/Vol] 131 mg/dL Normal 55 - 199 mg/dL [facility] Remisol Potassium [Moles/Vol] 3.7 mmol/L Normal 3.5 - 5.3 mmol/L [facility] Remisol Procalcitonin 0.09 ng/mL Normal 0.00 - 0.50 ng/mL [facility] Remisol Sodium [Moles/Vol] 137 mmol/L Normal 135 - 145 mmol/L [facility] Remisol Troponin I.cardiac [Mass/Vol] 22.50 pg/mL Normal 15.90 - 38.40 pg/mL [facility] Remisol Urea nitrogen [Mass/Vol] 47 mg/dL High 5 - 21 mg/dL [facility] Remisol Urea nitrogen/Creatinine [Mass ratio] 29 mg/mg High 10 - 20 [facility] Remisol CHEMISTRYOrdered By: Yanet Apodaca on 12-18-2022 Troponin I.cardiac [Mass/Vol] 18.80 pg/mL Normal 15.90 - 38.40 pg/mL [facility] Remisol Natriuretic peptide B (Bld) [Mass/Vol] 219 pg/mL High 5 - 80 pg/mL [facility] HemeManSS CKon 12-18-2022 CK [Catalytic activity/Vol] 55 Int._Unit/L Normal 14-261 [facility] Comment on above: Performed By: #### 2 729677, 7764203, 1027798481, 14060229, 52008853 ####[facility] [address] [place] [address] COAGULATIONOrdered By: Rachael Apodaca on 12-18-2022 aPTT Coag (PPP) [Time] 30.6 s Normal 25.1 - 36.5 second(s) [facility] Auto Coag INR Coag (PPP) [Relative time] 1.1 {INR} Invalid Interpretation Code FT Auto Coag PT Coag (PPP) [Time] 12.5 s Normal 9.4 - 1 2.5 second(s) [facility] Auto Coag CT Head or Brain w/o Contras ton 12-18-2022 CT Head or Brain w/o Contrast Normal [facility] CT Spine Cervical w/o Contra ston 12-18-2022 CT Spine Cervical w/o Contrast Normal [facility] Capillary Glucose POCon 11-22 Glucose [Mass/Vol] 212 mg/dL High 55-99 [facility] Comment on above: Result Comment: Gareth GARDINER Performed By: #### 2 07943177 ####[facility] [address] [place] [address] Glucose [Mass/Vol] 97 mg/dL Normal 55-99 [facility] Comment on above: Result Comment: Yazmin bri Meter Performed By: #### 2 55025067 ####[facility] [address] [place] [address] Glucose [Mass/Vol] 119 mg/dL High 55-99 [facility] Comment on above: Result Comment: Gareth GARDINER Performed By: #### 2 13913102 ####[facility] [address] [place] [address] Glucose [Mass/Vol] 131 mg/dL High 55-99 [facility] Comment on above: Result Comment: Gareth GARDINER Performed By: #### 2 88783149 ####[facility] [address] [place] [address] Consent for Treatmenton 11-22 Consent for Treatment [id number]# 1.00CD:127 Normal [facility] ED Clinical Summaryon 2022 ED Clinical Summary Normal [facility] ED Note-Physicianon 12-19-19 23 ED Note-Physician Normal [facility] Comment on above: Result Comment: Elec tronically Signed By: Guilherme POTTS, Malcom\.br\Date and Time Signed: 12/18/22 04:33 EDT ED Patient Education Noteon 12-18-2022 ED Patient Education Note Normal [facility] ED Patient Summaryon 023 ED Patient Summary Normal [facility] ED Traumaon 12-18-2022 ED Trauma [id number]# 1.00CD:127 Normal [facility] HEMATOLOGYOrdered By: SYSTEM SYSTEM on [...] 33.6 g/dL Normal 31.4 - 36.0 gm/dL [facility] HemeAutoSS MCV (RBC) [Entitic vol] 84.2 fL Normal 80.0 - 100.0 fL FT HemeAutoSS Platelet mean volume (Bld) [Entitic vol] 9.2 fL Normal 6.4 - 10.8 fL [facility] HemeAutoSS Platelets (Bld) [#/Vol] 219.0 E9/L Normal 150. 0 - 500.0 E9/L [facility] HemeAutoSS RBC (Bld) [#/Vol] 4.5 E12/L Normal 4.3 - 5.9 E12/L [facility] HemeAutoSS WBC corrected for nucl RBC Auto (Bld) [#/Vol] 15.0 E9/L High 4.0 - 11.0 E9/L [facility] HemeAutoSS Insurance Correspondence Off iceon 12-18-2022 Insurance Correspondence Office [id number]#1 .00CD:127 Normal [facility] Interdisciplinary Note - Santosh e Manageron 12-18-2022 Interdisciplinary Note - Human Resources Recruiter [facility] Comment on above: Result Comment: Elec tronically Signed By: Lucero Watson\.br\Date and Time Signed: 12/18/22 14:57 EDT Interdisciplinary Note - Edjuan singon 12-18-2022 Interdisciplinary Note - Nursing Patient he is confused and he does not able to answer my questions. informed staff in the [facility] to send current medication list in fax.3N Normal [facility] Interdisciplinary Note - PTo n 12-18-2022 Interdisciplinary Note - PT Normal [facility] Laboratory - Microbiology an d Antimicrobial susceptibilityOrdered By: Karen Vergara on 12-18-2022 Bacteria identified Cx Nom (U) 10,000 cfu/ml Staphylococcus species Continuing incubation [facility] Monitor Recordon 12-18-2022 Monitor Record [id number]# 1.00CD:127 Normal [facility] No Panel InformationOrdered By: Karen Vergara on 12-18-2022 Blood Culture Charcoal Streptococcus spe cies Staphylococcus species coagulase negative In 1 of 2 blood culture bottles drawn. Isolated from aerobic bottle Preliminary gram stain results of gram positive cocci in clusters Result called to Dr. Mckinney by and results read back for confirmation on 12/19/2022 09:39:39 [facility] No Panel InformationOrdered By: [facility] MICROBIOLOGY on 12-18-2022 Blood Culture Charcoal No growth at 2 da ys. Final to follow at 7 days. [facility] PT & PTTon 12-18-2022 aPTT Coag (PPP) [Time] 30.6 second(s) Normal 25.1-36.5 [facility] Comment on above: Result Comment: [...] the same coagulation reagent and instrumentation as [facility]. Currently there are no coagulation studies available worldwide for children to 14 days, and no normal ranges. Heparin therapeutic range (represented by Anti-Factor Xa activity of 0.2 - 0.4 U/mL) corresponds to PTT of 56.6 - 109.0 sec. Performed By: #### 1 9124046, 3979487, 39578670, 3061095, 67810504, 27608012, 2574365 ####[facility] [address] [place] [address] INR Coag (PPP) [Relative time] 1.1 {INR} Invalid Interpretation Code [facility] Comment on above: Result Comment: INR results are specifically intended to assess patients stabilized on long-term Anticoagulation therapy suggested INR?s ?Less Intensive Anticoagulation? 2.0 ? 3.0Conventional Range 3.0 ? 4.5 Performed By: #### 1 4218249, 0819588, 80835466, 5622048, 63252909, 24876979, 0381712 ####[facility] [address] [place] [address] PT Coag (PPP) [Time] 12.5 second(s) Normal 9.4-12.5 [facility] Comment on above: Result Comment: [...] the same coagulation reagent and instrumentation as [facility]. Currently there are no coagulation studies available worldwide for children to 14 days, and no normal ranges. Performed By: #### 1 8465642, 8438869, 88575738, 0456453, 16097004, 07722860, 0042553 ####[facility] [address] [place] [address] Procalcitoninon 12-18-2022 Procalcitonin .09 ng/mL Normal .00-.50 [facility] Comment on above: Result Comment: <0.5 [...] to 24 hours. Performed By: #### 2 455383, 0073590, 8933279331, 39999575, 43394896 ####[facility] [address] [place] [address] RAD - Preliminary Cat Scan R eporton 12-18-2022 RAD - Preliminary Cat Scan Report [id number]# 1.00CD:127 Normal [facility] Troponin 0 Hr.on 12-18-2022 Troponin I.cardiac [Mass/Vol] 23.50 pg/mL Normal 15.90-38.40 [facility] Comment on above: Result Comment: The 95% CI (Confidence Interval) PPV (Positive Predictive Value) for myocardial infarction in females is 38 pg/mL, in males 51 pg/mL. The results should be used in conjunction with clinical conditions of myocardial infarction.(qcue High Sensitivity Troponin I Instructions For Use, [employer] [place], December 2017) Performed By: #### 1 0316674, 2957607, 87088552, 6525528, 00144923, 59867773, 9403423 ####[facility] [address] [place] [address] Troponin 3 Hr.on 12-18-2022 Troponin I.cardiac [Mass/Vol] 18.80 pg/mL Normal 15.90-38.40 [facility] Comment on above: Result Comment: The 95% CI (Confidence Interval) PPV (Positive Predictive Value) for myocardial infarction in females is 38 pg/mL, in males 51 pg/mL. The results should be used in conjunction with clinical conditions of myocardial infarction.(qcue High Sensitivity Troponin I Instructions For Use, [employer] [place], December 2017) Performed By: #### 1 5662743 ####[facility] [address] [place] [address] Troponin 6 Hr.on 12-18-2022 Troponin I.cardiac [Mass/Vol] 22.50 pg/mL Normal 15.90-38.40 [facility] Comment on above: Result Comment: The 95% CI (Confidence Interval) PPV (Positive Predictive Value) for myocardial infarction in females is 38 pg/mL, in males 51 pg/mL. The results should be used in conjunction with clinical conditions of myocardial infarction.(Access High Sensitivity Troponin I Instructions For Use, [employer] [place], December 2017) Performed By: #### 2 425701, 0197935, 1008456891, 35968973, 52934066 ####[facility] [address] [place] [address] Troponin 9 Hr.on 12-18-2022 Troponin I.cardiac [Mass/Vol] 18.90 pg/mL Normal 15.90-38.40 [facility] Comment on above: Result Comment: The 95% CI (Confidence Interval) PPV (Positive Predictive Value) for myocardial infarction in females is 38 pg/mL, in males 51 pg/mL. The results should be used in conjunction with clinical conditions of myocardial infarction.(Access High Sensitivity Troponin I Instructions For Use, Claudia Jackson, December 2017) Performed By: #### 1 1889244 ####[address] [address] UA With Cult Reflexon 2022 Bacteria LM Ql (Urine sed) TRACE Normal Trace [facility] Comment on above: Performed By: #### 1 3708920, 3429470 ####[address] [address] Bilirubin Ql (U) Negative Normal Negative [facility] Comment on above: Performed By: #### 1 3768544, 7088848 ####[address] [address] Clarity (U) CLEAR Normal Clear [facility] Comment on above: Performed By: #### 1 1923337, 0304823 ####[address] [address] Color (U) YELLOW Normal Yellow [facility] Comment on above: Performed By: #### 1 5899973, 6572178 ####[address] [address] Epithelial cells.squamous LM.HPF (Urine sed) [#/Area] 0-2 Normal 0-2 [facility] Comment on above: Performed By: #### 1 0129849, 9485310 ####[address] [address] Glucose Test strip (U) [Mass/Vol] Negative Normal Negative [facility] Comment on above: Performed By: #### 1 9266573, 0246139 ####[facility] [address] [place] [address] Hemoglobin Ql (U) TRACE Abnormal Negative [facility] Comment on above: Performed By: #### 1 9599311, 2171793 ####[facility] [address] [place] [address] Ketones (U) [Mass/Vol] Negative Normal Negative [facility] Comment on above: Performed By: #### 1 7272636, 0465285 ####[facility] [address] [place] [address] [place].plasma/[place].R BC (Bld) [Mass ratio] 0-3 Normal 0-3 [facility] Comment on above: Performed By: #### 1 4569286, 5184606 ####[facility] [address] [place] [address] Nitrite Ql (U) Negative Normal Negative [facility] Comment on above: Performed By: #### 1 4889519, 6266732 ####[facility] [address] [place] [address] pH (U) 6.5 [pH] Invalid Interpretation Code 5.0-9.0 [facility] Comment on above: Performed By: #### 1 9730038, 7340302 ####[facility] [address] [place] [address] Protein (U) [Mass/Vol] Negative Normal Negative [facility] Comment on above: Performed By: #### 1 7412389, 4759812 ####[facility] [address] [place] [address] Specific gravity (U) [Rel density] 1.020 Invalid Interpretation Code 1.005-1.030 [facility] Comment on above: Performed By: #### 1 4713320, 9591104 ####[facility] [address] [place] [address] Type of Urine collection method Clean Catch Normal [facility] Comment on above: Performed By: #### 1 7762969, 5533371 ####[facility] [address] [place] [address] Urobilinogen Qn (U) 0.2 {Lei'U}/dL Normal 0.0-1.0 [facility] Comment on above: Performed By: #### 1 1321685, 1707652 ####[facility] [address] [place] [address] WBC Auto Ql (U) 3+ Abnormal Negative [facility] Comment on above: Performed By: #### 1 5264755, 6887461 ####[facility] [address] [place] [address] WBC LM.HPF (Urine sed) [#/Area] /[HPF] Abnormal 0-5 [facility] Comment on above: Performed By: #### 1 9253966, 4377461 ####[facility] [address] [place] [address] URINALYSISOrdered By: Houston Castillo on 12-18-2022 Bacteria [...] PM) Normal Negative [facility] UA Auto SS [place].plasma/[place].R BC (Bld) [Mass ratio] 0-3 /HPF Normal 0-3/HPF [facility] UA Au to SS Nitrite Ql (U) Negative (12/18/22 4:45 PM) Normal Negative [facility] UA Auto SS pH (U) 6.5 *NA* (12/18/22 4:45 PM) Invalid Interpretation Code 5.0 - 9.0 FT UA Auto SS Protein (U) [Mass/Vol] Negative (12/18/22 4:45 PM) Normal Negative [facility] UA Auto SS Specific gravity (U) [Rel density] 1.020 *NA* (12/18/22 4:45 PM) Invalid Interpretation Code 1.005 - 1.030 FT UA Auto SS UA Spec Desc Clean Catch (12/18/22 4:45 PM) Normal [facility] UA Auto SS Urobilinogen Qn (U) 0.2670196 {Lei'U}/dL Normal 0.0 - 1.0 EU/dL FT UA Auto SS WBC Auto Ql (U) 3+ *ABN* (12/18/22 4:45 PM) Invalid Interpretation Code Negative [facility] UA Auto SS WBC LM.HPF (Urine sed) [#/Area] /[HPF] Invalid Interpretation Code 0-5/HPF FT UA Auto SS XR Chest Single Viewon 12-18 XR Chest Single View Normal [facility] XR Pelvis 1 or 2 Viewson XR Pelvis 1 or 2 Views Normal Fi [facility] eGFRon 12-18-2022 GFR/1.73 sq M.predicted among non-blacks MDRD (S/P/Bld) [Vol rate/Area] 44 mL/min/1.73 m2 Low >=59 [facility] Comment on above: Order Comment: Order added by Discern Expert. Result Comment: Polishing Machine Operator Helper earnest kidney disease could be indicated at eGFR's of less than 60 mL/min/1.73m2. Kidney failure is indicated at less than 15 mL/min/1.73m2. Performed By: #### 2 973982, 1118786, [id number], 58710768, 90050506 ####[facility] [address] [place] [address] GFR/1.73 sq M.predicted among non-blacks MDRD (S/P/Bld) [Vol rate/Area] 38 mL/min/1.73 m2 Low >=59 [facility] Comment on above: Order Comment: Order added by Discern Expert. Result Comment: Polishing Machine Operator Helper earnest kidney disease could be indicated at eGFR's of less than 60 mL/min/1.73m2. Kidney failure is indicated at less than 15 mL/min/1.73m2. Performed By: #### 1 1329795, 9615892, 14746401, 0526645, 78091258, 97457144, 8675151 ####[facility] [address] [place] [address] Capillary Glucose POCon 11-22 Glucose [Mass/Vol] 165 mg/dL High 55-99 [facility] Comment on above: Result Comment: Yazmin bri Meter Performed By: #### 2 [id number] ####[facility] [address] [place] [address] Glucose [Mass/Vol] 184 mg/dL High - [facility] Comment on above: Performed By: #### 2 [id number] ####[facility] [address] [place] [address] Capillary Glucose POCon 11-22 Glucose [Mass/Vol] 184 mg/dL High [address] Comment on above: Result Comment: Yazmin bri Meter Performed By: #### 2 [id number] ####[facility] [address] [place] [address] Glucose [Mass/Vol] 141 mg/dL High 55- [facility] Comment on above: Result Comment: Yazmin bri Meter Performed By: #### 2 [id number] ####[facility] [address] [place] [address] Capillary Glucose POCon 11-22 Glucose [Mass/Vol] 183 mg/dL High 55-[address] [place] [address] Comment on above: Result Comment: Yazmin bri Meter Performed By: #### 2 [id number] ####[facility] [address] [place] [address] Glucose [Mass/Vol] 147 mg/dL High 55 [facility] Comment on above: Result Comment: Yazmin bri Meter Performed By: #### 2 [id number] ####[facility] [address] [place] [address] Capillary Glucose POCon 11-22 Glucose [Mass/Vol] 188 mg/dL High 55-99 [facility] Comment on above: Result Comment: Yazmin bri Meter Performed By: #### 2 [id number] ####[facility] [address] [place] [address] Glucose [Mass/Vol] 162 mg/dL High 55-99 [facility] Comment on above: Result Comment: Yazmin bri Meter Performed By: #### 2 [id number] ####[facility] [address] [place] [address] Auto Diffon 12-13-2022 Basophils/100 WBC (Bld) 0.0 % Normal 0.0-2.0 [facility] Comment on above: Order Comment: Order Added by Discern Expert. Performed By: #### 1 3907179, 2364779, 646313438, 1388470, 3372774 ####[facility] [address] [place] [address] Basophils/Leukocytes Auto (Bld) [Pure # fraction] 0.0 E9/L Normal 0.0-0.2 [facility] Comment on above: Order Comment: Order Added by Discern Expert. Performed By: #### 1 4211019, 3807922, 290689028, 3538520, 4113857 ####[facility] [address] [place] [address] Eosinophils/100 WBC (Bld) 7.6 % Normal 0.0-8.0 [facility] Comment on above: Order Comment: Order Added by Discern Expert. Performed By: #### 1 3017707, 8625918, 314472671, 0067455, 0202538 ####[facility] [address] [place] [address] Eosinophils/Leukocytes Auto (Bld) [Pure # fraction] 1.0 E9/L High 0.0-0.5 [facility] Comment on above: Order Comment: Order Added by Bethany Expert. Performed By: #### 1 2078400, 5980113, 713120210, 9721255, 5807120 ####[address] [place] [address] Lymphocytes/100 WBC (Bld) 10.3 % Low 14.0-50.0 [facility] Comment on above: Order Comment: Order Added by Discern Expert. Performed By: #### 1 8885246, 0746573, 278017345, 7492700, 2740790 ####[address] [place] [address] Lymphocytes/Leukocytes Auto (Bld) [Pure # fraction] 1.3 E9/L Normal 1.0-4.0 [facility] Comment on above: Order Comment: Order Added by Bethany Expert. Performed By: #### 1 2715794, 3193815, 689471833, 1713748, 2000645 ####[address] [address] Monocytes/100 WBC (Bld) 9.6 % Normal 4.0-14.0 [facility] Comment on above: Order Comment: Order Added by Bethany Expert. Performed By: #### 1 4038504, 0726176, 728743810, 3701836, 4815042 ####[address] [address] Monocytes/Leukocytes Auto (Bld) [Pure # fraction] 1.2 E9/L High 0.2-1.0 [facility] Comment on above: Order Comment: Order Added by Bethany Expert. Performed By: #### 1 4682273, 7661615, 668075436, 8177906, 4665364 ####[address] [place] [address] Neutrophils/100 WBC (Bld) 72.5 % Normal 36.0-75.0 [facility] Comment on above: Order Comment: Order Added by Bethany Expert. Performed By: #### 1 6068794, 7507956, 365419611, 1852256, 2700853 ####[facility] [address] [place] [address] Neutrophils/Leukocytes Auto (Bld) [Pure # fraction] 9.0 E9/L High 2.0-7.5 [facility] Comment on above: Order Comment: Order Added by Discern Expert. Performed By: #### 1 3267294, 9906892, 315547966, 9005220, 6662385 ####[address] [place] [address] CBC w/ Auto Diffon 3 Erythrocyte distribution width (RBC) [Ratio] 15.0 % High 10.9-14.2 [facility] Comment on above: Performed By: #### 1 2190385, 1342006, 680585721, 1496342, 5735072 ####[address] [place] [address] Hematocrit (Bld) [Volume fraction] 45.2 % Normal 37.7-49.0 [facility] Comment on above: Performed By: #### 1 9107054, 9116026, 763010013, 0460678, 9201418 ####[address] [place] [address] Hemoglobin (Bld) [Mass/Vol] 14.8 g/dL Normal 13.5-17.5 [facility] Comment on above: Performed By: #### 1 5561062, 5978325, 037103206, 7705441, 6367694 ####[facility] [address] [place] [address] MCH (RBC) [Entitic mass] 27.8 pg Normal 27.0-34.0 [facility] Comment on above: Performed By: #### 1 0405558, 0143551, 001102835, 3491432, 4235984 ####[address] [place] [address] MCHC (RBC) [Mass/Vol] 32.7 g/dL Normal 31.4-36.0 [facility] Comment on above: Performed By: #### 1 4770256, 7473034, 641411577, 1298851, 6776156 ####[address] [place] [address] MCV (RBC) [Entitic vol] 85.0 fL Normal 80.0-100.0 [facility] Comment on above: Performed By: #### 1 1631477, 8713829, 516919004, 7501110, 2018351 ####[address] [place] [address] Platelet mean volume (Bld) [Entitic vol] 9.4 fL Normal 6.4-10.8 [facility] Comment on above: Performed By: #### 1 6782583, 8085875, 106003347, 0825985, 3503552 ####[address] [address] Platelets (Bld) [#/Vol] 193.0 E9/L Normal 150.0-500.0 [facility] Comment on above: Performed By: #### 1 7610692, 9718004, 200189928, 2197478, 1728980 ####[address] [address] RBC (Bld) [#/Vol] 5.3 E12/L Normal 4.3-5.9 [facility] Comment on above: Performed By: #### 1 5263634, 5896449, 771998699, 8320553, 9432345 ####[address] [place] [address] WBC corrected for nucl RBC Auto (Bld) [#/Vol] 12.5 E9/L High 4.0-11.0 [facility] Comment on above: Performed By: #### 1 1719803, 1782934, 642233659, 5602367, 4619948 ####[address] [place] [address] CMPon 12-13-2022 Albumin [Mass/Vol] 3.6 g/dL Normal 3.3-5.0 [facility] Comment on above: Performed By: #### 1 9085779, 8715060, 092430817, 5418602, 7084147 ####[facility] [address] [place] [address] Albumin/Globulin (S) [Mass conc ratio] 1.0 Low 1.1-2.2 [facility] Comment on above: Performed By: #### 1 6202528, 9930187, 857266352, 7446663, 0010113 ####[facility] [address] [place] [address] ALP [Catalytic activity/Vol] 49 Int._Unit/L Normal 21-98 [facility] Comment on above: Performed By: #### 1 3065090, 1502145, 724294582, 9912368, 2460785 ####[address] [place] [address] ALT No additional P-5'-P [Catalytic activity/Vol] 21 Int._Unit/L Normal 6-46 [facility] Comment on above: Performed By: #### 1 6384802, 2339783, 843394803, 8509991, 2369232 ####[facility] [address] [place] [address] Anion gap [Moles/Vol] 16 mmol/L Normal 6-16 [facility] Comment on above: Performed By: #### 1 6276835, 1120383, 296679200, 9225232, 7987489 ####[facility] [address] [place] [address] AST [Catalytic activity/Vol] 21 Int._Unit/L Normal 5-43 [facility] Comment on above: Performed By: #### 1 2314142, 7373607, 610869252, 4278588, 4103617 ####[facility] [address] [place] [address] Bilirubin [Mass/Vol] 0.6 mg/dL Normal 0.0-1.[address] [facility] Comment on above: Performed By: #### 1 9051853, 6962651, 860279506, 0114998, 4848418 ####[facility] [address] [facility] [place] [address] Calcium [Mass/Vol] 9.4 mg/dL Normal 8.9-11.1 [facility] Comment on above: Performed By: #### 1 0398253, 9771893, 523355317, 0085345, 5883801 ####[facility] [address] [place] [address] Chloride [Moles/Vol] 99 mmol/L Low 101-111 [facility] Comment on above: Performed By: #### 1 9524427, 7247983, 137007802, 5838185, 8335848 ####[facility] [address] [facility] [place] [address] CO2 [Moles/Vol] 31 mmol/L Normal 21-31 [facility] Comment on above: Performed By: #### 1 6973318, 7906595, 067360225, 4412626, 5390543 ####[facility] [address] [facility] [place] [address] Creatinine [Mass/Vol] 1.5 mg/dL High 0.5-1.3 [facility] Comment on above: Performed By: #### 1 9572173, 5093280, 925692073, 9738734, 5050299 ####[facility] [address] [facility] [place] [address] Globulin (S) [Mass/Vol] 3.7 g/dL Normal 1.4-4.0 [facility] Comment on above: Performed By: #### 1 7734296, 7732883, 755062058, 7655376, 6212569 ####[facility] [address] [facility] [place] [address] Glucose [Mass/Vol] 128 mg/dL Normal 55-199 [facility] Comment on above: Result Comment: If t his glucose result represents a fasting glucose, interpretation should refer to the following reference range: 55-99 mg/dL Performed By: #### 1 2741639, 6481097, 409350901, 1242849, 8077107 ####[facility] [address] [place] [address] Potassium [Moles/Vol] 4.1 mmol/L Normal 3.5-5.3 [facility] Comment on above: Performed By: #### 1 9377497, 6358632, 572305209, 7812620, 9038479 ####[facility] [address] [place] [address] Protein [Mass/Vol] 7.3 g/dL Normal 6.0-7.8 [facility] Comment on above: Performed By: #### 1 3619331, 9700058, 597845564, 9281617, 6880569 ####[address] [place] [address] Sodium [Moles/Vol] 142 mmol/L Normal 135-145 [facility] Comment on above: Performed By: #### 1 6636277, 7339158, 007399942, 2226626, 3527268 ####[facility] [address] [place] [address] Urea nitrogen [Mass/Vol] 57 mg/dL High 5-21 [facility] Comment on above: Performed By: #### 1 9574038, 1482615, 566585929, 1482639, 0475463 ####[facility] [address] [place] [address] Urea nitrogen/Creatinine [Mass ratio] 38 No Units High 10-20 [facility] Comment on above: Performed By: #### 1 7055633, 2873606, 517522948, 8211283, 4934051 ####[facility] [address] [place] [address] Capillary Glucose POCon 07 Glucose [Mass/Vol] 256 mg/dL High 55-99 [facility] Comment on above: Result Comment: Yazmin bri Meter Performed By: #### 2 71954903 ####[facility] [address] [place] [address] Glucose [Mass/Vol] 152 mg/dL High 55-[address] [place] [address] Comment on above: Result Comment: Yazmin bri Meter Performed By: #### 2 52877443 ####[facility] [address] [place] [address] SbrM1bjd 12-13-2022 HbA1c (Bld) [Mass fraction] 6.5 % High <=5.9 [facility] Comment on above: Performed By: #### 1 3945541, 5306956, 663207068, 7131931, 3890707 ####[facility] [address] [place] [address] eGFRon 12-13-2022 GFR/1.73 sq M.predicted among non-blacks MDRD (S/P/Bld) [Vol rate/Area] 47 mL/min/1.73 m2 Low >=59 [facility] Comment on above: Order Comment: Order added by Discern Expert. Result Comment: Polishing Machine Operator Helper earnest kidney disease could be indicated at eGFR's of less than 60 mL/min/1.73m2. Kidney failure is indicated at less than 15 mL/min/1.73m2. Performed By: #### 1 0593617, 7518355, 245470119, 9801492, 6622928 ####[facility] [address] [place] [address] Capillary Glucose POCon 11-22 Glucose [Mass/Vol] 212 mg/dL High [address] [place] [address] Comment on above: Result Comment: Yazmin bri Meter Performed By: #### 2 16408461 ####[facility] [address] [place] [address] Glucose [Mass/Vol] 161 mg/dL [address] Comment on above: Result Comment: Yazmin bri Meter Performed By: #### 2 52345277 ####[facility] [address] [place] [address] Capillary Glucose POCon 11-22 Glucose [Mass/Vol] 206 mg/dL High [address] [place] [address] Comment on above: Result Comment: Yazmin bri Meter Performed By: #### 2 18572568 ####[facility] [address] [place] [address] Glucose [Mass/Vol] 152 mg/dL [address] Comment on above: Result Comment: Yazmin bri Meter Performed By: #### 2 40652374 ####[facility] [address] [place] [address] Capillary Glucose POCon 11-22 Glucose [Mass/Vol] 140 mg/dL [address] Comment on above: Result Comment: Yazmin bri Meter Performed By: #### 2 27792721 ####[facility] [address] [facility] [address] Capillary Glucose POCon 11-21 Glucose [Mass/Vol] 243 mg/dL [address] Comment on above: Result Comment: Yazmin bri Meter Performed By: #### 2 84350954 ####[facility] [address] [facility] [place] [address] Glucose [Mass/Vol] 157 mg/dL [address] Comment on above: Result Comment: Yazmin bri Meter Performed By: #### 2 02594256 ####[facility] [address] [facility] [address] Capillary Glucose POCon 11-21 Glucose [Mass/Vol] 181 mg/dL [address] Comment on above: Result Comment: Yazmin bri Meter Performed By: #### 2 35543201 ####[facility] [address] [place] [address] Capillary Glucose POCon 11-21 Glucose [Mass/Vol] 149 mg/dL [address] Comment on above: Result Comment: Yazmin bri Meter Performed By: #### 2 87284533 ####[facility] [address] [place] [address] Glucose [Mass/Vol] 164 mg/dL High 55-99 [facility] Comment on above: Result Comment: Yazmin bri Meter Performed By: #### 2 49033627 ####[facility] [address] [place] [address] Capillary Glucose POCon 11-21 Glucose [Mass/Vol] 265 mg/dL High 55-99 [facility] Comment on above: Result Comment: Yazmin bri Meter Performed By: #### 2 53135603 ####[facility] [address] [place] [address] Glucose [Mass/Vol] 129 mg/dL High 55-99 [facility] Comment on above: Result Comment: Yazmin bri Meter Performed By: #### 2 23369785 ####[facility] [address] [place] [address] Family Medicine Office/Clini c Noteon 12-06-2022 Family Medicine Office/Clinic Note Normal [facility] Comment on above: Result Comment: Elec tronically Signed By: SHAISTA POTTS, Donta\.br\Date and Time Signed: 12/06/22 21:11 EDT Capillary Glucose POCon 11-21 Glucose [Mass/Vol] 196 mg/dL High 55-99 [facility] Comment on above: Result Comment: Yazmin bri Meter Performed By: #### 2 63854174 ####[facility] [address] [place] [address] Glucose [Mass/Vol] 159 mg/dL High 55-99 [facility] Comment on above: Result Comment: Yazmin bri Meter Performed By: #### 2 43546826 ####[facility] [address] [place] [address] Capillary Glucose POCon 11-21 Glucose [Mass/Vol] 195 mg/dL High 55-99 [facility] Comment on above: Result Comment: Gareth guerrero RN/ Performed By: #### 2 36049312 ####[facility] [address] [place] [address] Insurance Correspondence Off ice12-04-2022 Insurance Correspondence Office [id number]# 1.00CD:127 Normal [facility] Physician Orderon 12-03-2022 Physician Order [id number]# 1.00CD:127 Normal [facility] CHEMISTRYOrdered By: Lab ROP User on 12-02-2022 Glucose [Mass/Vol] 227 mg/dL High 55 - 99 mg/dL [facility] POC Subsection Comment on above: Result Comment: Gareth GARDINER POC Device SN [id number] Invalid Interpretation Code [facility] POC Subsection POC User ID [id number] Invalid Interpretation Code [facility] POC Subsection POC Username KINGSTON JAMISON Invalid Interpretation Code [facility] POC Subsection Glucose [Mass/Vol] 127 mg/dL High 55 - 99 mg/dL [facility] POC Subsection Comment on above: Result Comment: Gareth GARDINER POC Device SN [id number] Invalid Interpretation Code [facility] POC Subsection POC User ID [id number] Invalid Interpretation Code [facility] POC Subsection POC Username TOYIN REYNOLDS Invalid Interpretation Code [facility] POC Subsection Capillary Glucose POCon 11-21 Glucose [Mass/Vol] 227 mg/dL High 55-99 [facility] Comment on above: Result Comment: Gareth GARDINER Performed By: #### 2 [id number] ####[facility] [address] [place] [address] Glucose [Mass/Vol] 127 mg/dL High 55-99 [facility] Comment on above: Result Comment: Gareth GARDINER Performed By: #### 2 51656406 ####[facility] [address] [place] [address] Coding Queryon 12-02-2022 Coding Query Normal [facility] Discharge Note-Nursingon Discharge Note-Nursing Normal [facility] Inpatient Clinical Summaryon 12-02-2022 Inpatient Clinical Summary Normal [facility] Inpatient Patient Summaryon 12-02-2022 Inpatient Patient Summary Normal [facility] Insurance Correspondence Off iceon 12-02-2022 Insurance Correspondence Office [id number]#1. 00CD:127 Normal [facility] Interdisciplinary Note - Santosh e Manageron 12-02-2022 Interdisciplinary Note - Human Resources Recruiter Normal [facility] Comment on above: Result Comment: Elec tronically Signed By: Dank HAYDEN, Lisa\.br\Date and Time Signed: 12/02/22 09:31 EDT Monitor Recordon 12-02-2022 Monitor Record [id number]# 1.00CD:127 Normal [facility] Physician Orderon 12-02-2022 Physician Order [id number]# 1.00CD:127 Normal [facility] Progress Note-Physicianon Progress Note-Physician Normal [facility] Comment on above: Result Comment: Elec tronically Signed By: Adeline COLEMAN\.br\Date and Time Signed: 12/01/22 18:43 EDT\.br\Electronically Co-Signed By: Juan Hdz DO\.br\Date and Time Co-Signed: 12/02/22 07:20 EDT Transfer Documentson 023 Transfer Documents [id number]# 1.00CD:127 Normal [facility] BMPon 12-01-2022 Anion gap [Moles/Vol] 13 mmol/L Normal 6-16 [facility] Comment on above: Performed By: #### 1 7796837, 0831957, 6079387, 1037008 ####[facility] [address] [place] [address] Calcium [Mass/Vol] 9.1 mg/dL Normal 8.9-11.1 [facility] Comment on above: Performed By: #### 1 2831928, 5720978, 6893737, 1458599 ####[facility] [address] [place] [address] Chloride [Moles/Vol] 102 mmol/L Normal 101-111 [facility] Comment on above: Performed By: #### 1 [id number], 7961825, 5046855, 7463528 ####[facility] [address] [place] [address] CO2 [Moles/Vol] 28 mmol/L Normal 21-31 [facility] Comment on above: Performed By: #### 1 7445983, 4249416, 3320814, 4062189 ####[facility] [address] [place] [address] Creatinine [Mass/Vol] 1.3 mg/dL Normal 0.5-1.3 [facility] Comment on above: Performed By: #### 1 3067362, 3734085, 4578282, 0805242 ####[facility] [address] [place] [address] Glucose [Mass/Vol] 97 mg/dL Normal 55-199 [facility] Comment on above: Result Comment: If t his glucose result represents a fasting glucose, interpretation should refer to the following reference range: 55-99 mg/dL Performed By: #### 1 1596940, 8340217, 5441629, 2132373 ####[facility] [address] [place] [address] Potassium [Moles/Vol] 4.6 mmol/L Normal 3.5-5.3 [facility] Comment on above: Performed By: #### 1 3600799, 1040887, 3422442, 3196523 ####[facility] [address] [place] [address] Sodium [Moles/Vol] 138 mmol/L Normal 135-145 [facility] Comment on above: Performed By: #### 1 5474990, 9426625, 6556092, 3261157 ####[facility] [address]aria [place] [address] Urea nitrogen [Mass/Vol] 24 mg/dL High 5-21 [facility] Comment on above: Performed By: #### 1 6154214, 7391392, 9183117, 8094154 ####[facility] [address] [facility] [place] [address] Urea nitrogen/Creatinine [Mass ratio] 18 No Units Normal 10-20 [facility] Comment on above: Performed By: #### 1 3507125, 8317699, 9967803, 2505237 ####[facility] [address] [place] [address] CHEMISTRYOrdered By: Lab ROP User on 12-01-2022 Glucose [Mass/Vol] 114 mg/dL High 55 - 99 mg/dL [facility] POC Subsection Comment on above: Result Comment: Gareth guerrero RN/ POC Device SN [id number] Invalid Interpretation Code [facility] POC Subsection POC User ID [id number] Invalid Interpretation Code [facility] POC Subsection POC Username [email or web address] Invalid Interpretation Code [facility] POC Subsection CHEMISTRYOrdered By: SYSTEM SYSTEM on 12-01-2022 Anion gap [Moles/Vol] 13 mmol/L Normal 6 - 16 mEq/L [facility] Remisol Calcium [Mass/Vol] 9.1 mg/dL Normal 8.9 - 11. 1 mg/dL FT Remisol Chloride [Moles/Vol] 102 mmol/L Normal 101 - 1 11 mmol/L FT Remisol CK [Catalytic activity/Vol] 211 [iU]/d Normal 14 - 261 Int._Unit/L [facility] Remisol CO2 [Moles/Vol] 28 mmol/L Normal 21 - 31 mmol/L [facility] Remisol Creatinine [Mass/Vol] 1.3 mg/dL Normal 0.5 - 1.3 mg/dL [facility] Remisol GFR/1.73 sq M.predicted among non-blacks MDRD (S/P/Bld) [Vol rate/Area] 56 mL/min/1.73 m2 Low >=59mL/min/ 1.73 m2 [facility] Chem S Glucose [Mass/Vol] 97 mg/dL Normal 55 - 199 mg/dL [facility] Magnesium [Mass/Vol] 2.1 mg/dL Normal 1.3 - 2 .4 mg/dL [facility] Potassium [Moles/Vol] 4.6 mmol/L Normal 3.5 - 5.3 mmol/L [facility] Sodium [Moles/Vol] 138 mmol/L Normal 135 - 145 mmol/L [facility] Remisol Urea nitrogen [Mass/Vol] 24 mg/dL High 5 - 21 mg/dL [facility] Remisol Urea nitrogen/Creatinine [Mass ratio] 18 mg/mg Normal 10 - 20 [facility] Remisol CKon 12-01-2022 CK [Catalytic activity/Vol] 211 Int._Unit/L Normal 14-261 [facility] Comment on above: Performed By: #### 1 4217554, 3198596, 2448323, 8330190 ####[facility] [address] [place] [address] Capillary Glucose POCon 11-21 Glucose [Mass/Vol] 114 mg/dL High 55-99 [facility] Comment on above: Result Comment: Gareth GARDINER Performed By: #### 2 [id number] ####[facility] [address] [place] [address] Glucose [Mass/Vol] 193 mg/dL High 55-99 [facility] Comment on above: Result Comment: Gareth GARDINER Performed By: #### 2 84709270 ####[facility] [address] [place] [address] Glucose [Mass/Vol] 203 mg/dL High 55-99 [facility] Comment on above: Result Comment: Gareth GARDINER Performed By: #### 2 [id number] ####[facility] [address] [place] [address] Glucose [Mass/Vol] 110 mg/dL High 55-99 [facility] Comment on above: Result Comment: Gareth GARDINER Performed By: #### 2 01579846 ####[facility] [address] [place] [address] Interdisciplinary Note - Santosh e Manageron 12-01-2022 Interdisciplinary Note - Human Resources Recruiter Pt is asleep in bed, no family present. Pt is accepted to [facility] side, pending precert at this time. Contact information provided and white board updated, CRM following Normal [facility] Comment on above: Result Comment: Elec tronically Signed By: Dank HAYDEN, Lisa\.candice\Date and Time Signed: 12/01/22 08:20 EDT Ionized Calciumon 12-01-2022 Calcium.ionized ISE [Mass/Vol] 4.8 mg/dL Invalid Interpretation Code 4.5-5.6 [facility] Comment on above: Result Comment: Perf ormed at: [facility] [address] [place], [place] [id number] PhD Michael Cortes Performed By: #### 2 841689, 5540849, 7638670, 93942501, 43233622, 2158127, 07588165, 7091196, 10387909, 643449432, 3159742, 4882030 ####[facility] [address] [place] [address] Magnesiumon 12-01-2022 Magnesium [Mass/Vol] 2.1 mg/dL Normal 1.3-2.[address] [facility] Comment on above: Performed By: #### 1 1724477, 2135714, 3149224, 9590451 ####[facility] [address] [place] [address] Progress Note-Physicianon Progress Note-Physician Normal F [facility] Comment on above: Result Comment: Elec tronically Signed By: Pao POTTS, Lizeth\.br\Date and Time Signed: 12/01/22 12:41 EDT XR Abdomen 1 Viewon 12-02-19 23 XR Abdomen 1 View Normal [facility] eGFRon 12-01-2022 GFR/1.73 sq M.predicted among non-blacks MDRD (S/P/Bld) [Vol rate/Area] 56 mL/min/1.73 m2 Low >=59 [facility] Comment on above: Order Comment: Order added by Discern Expert. Result Comment: Polishing Machine Operator Helper earnest kidney disease could be indicated at eGFR's of less than 60 mL/min/1.73m2. Kidney failure is indicated at less than 15 mL/min/1.73m2. Performed By: #### 1 1973096, 6243125, 9712527, 4370418 ####[facility] [address] [place] [address] BMPon 11-30-2022 Anion gap [Moles/Vol] 11 mmol/L Normal 6-16 [facility] Comment on above: Performed By: #### 2 343694, 4535703, 92998412 ####[facility] [address] [place] [address] Calcium [Mass/Vol] 9.0 mg/dL Normal 8.9-11.1 [facility] Comment on above: Performed By: #### 2 403284, 2998929, 62784200 ####[facility] [address] [place] [address] Chloride [Moles/Vol] 102 mmol/L Normal 101-[address] [facility] Comment on above: Performed By: #### 2 020191, 7825840, 88529481 ####[facility] [address] [place] [address] CO2 [Moles/Vol] 31 mmol/L Normal 21-31 [facility] Comment on above: Performed By: #### 2 503234, 4720118, 64238185 ####[facility] [address] [place] [address] Creatinine [Mass/Vol] 1.1 mg/dL Normal 0.5-1.3 [facility] Comment on above: Performed By: #### 2 532195, 1445550, 03851970 ####[facility] [address] [place] [address] Glucose [Mass/Vol] 114 mg/dL Normal 55-199 [facility] Comment on above: Result Comment: If t his glucose result represents a fasting glucose, interpretation should refer to the following reference range: 55-99 mg/dL Performed By: #### 2 468761, 7123560, 86968898 ####[facility] [address] [place] [address] Potassium [Moles/Vol] 3.4 mmol/L Low 3.5-5.3 [facility] Comment on above: Performed By: #### 2 839105, 5245422, 04460502 ####[facility] [address] [place] [address] Sodium [Moles/Vol] 141 mmol/L Normal 135-145 [facility] Comment on above: Performed By: #### 2 897254, 0655454, 26921043 ####[facility] [address] [place] [address] Urea nitrogen [Mass/Vol] 23 mg/dL High 5-21 [facility] Comment on above: Performed By: #### 2 112156, 1735241, 98500715 ####[facility] [address] [place] [address] Urea nitrogen/Creatinine [Mass ratio] 21 No Units High 10-20 [facility] Comment on above: Performed By: #### 2 891846, 3194138, 66663129 ####[facility] [address] [place] [address] CHEMISTRYOrdered By: SYSTEM SYSTEM on 11-30-2022 Anion gap [Moles/Vol] 11 mmol/L Normal 6 - 16 mEq/L [facility] Remisol Calcium [Mass/Vol] 9.0 mg/dL Normal 8.9 - 11. 1 mg/dL [facility] Remisol Chloride [Moles/Vol] 102 mmol/L Normal 101 - 1 11 mmol/L [facility] Remisol CO2 [Moles/Vol] 31 mmol/L Normal 21 - 31 mmol/L [facility] Remisol Creatinine [Mass/Vol] 1.1 mg/dL Normal 0.5 - 1.3 mg/dL [facility] Remisol GFR/1.73 sq M.predicted among non-blacks MDRD (S/P/Bld) [Vol rate/Area] 69 mL/min/1.73 m2 Normal >=59mL/min/ 1.73 m2 [facility] Chem S Glucose [Mass/Vol] 114 mg/dL Normal 55 - 199 mg/dL [facility] Rem[facility] Magnesium [Mass/Vol] 1.8 mg/dL Normal 1.3 - 2 .4 mg/dL [facility] Potassium [Moles/Vol] 3.4 mmol/L Low 3.5 - 5.3 mmol/L [facility] Remisol Sodium [Moles/Vol] 141 mmol/L Normal 135 - 145 mmol/L [facility] Remisol Urea nitrogen [Mass/Vol] 23 mg/dL High 5 - 21 mg/dL [facility] Remisol Urea nitrogen/Creatinine [Mass ratio] 21 mg/mg High 10 - 20 [facility] Remisol Capillary Glucose POCon 11-21 Glucose [Mass/Vol] 194 mg/dL High 55-99 [facility] Comment on above: Result Comment: Gareth GARDINER Performed By: #### 2 43629612 ####[facility] [address] [place] [address] Glucose [Mass/Vol] 96 mg/dL Normal 55-99 [facility] Comment on above: Performed By: #### 2 65064205 ####[facility] [address] [place] [address] Glucose [Mass/Vol] 130 mg/dL High 55-99 [facility] Comment on above: Result Comment: Gareth GARDINER Performed By: #### 2 50027149 ####[facility] [address] [place] [address] Glucose [Mass/Vol] 113 mg/dL High 55-99 [facility] Comment on above: Result Comment: Gareth GARDINER Performed By: #### 2 [id number] ####[facility] [address] [place] [address] Echo Transthoracic Completeo n 11-30-2022 Echo Transthoracic Complete Normal [facility] Insurance Correspondence Off iceon 11-30-2022 Insurance Correspondence Office [id number]:127 Normal [facility] Interdisciplinary Note - Santosh e Manageron 11-30-2022 Interdisciplinary Note - Human Resources Recruiter Normal [facility] Comment on above: Result Comment: Elec tronically Signed By: Dank HAYDEN, Lisa\.candice\Date and Time Signed: 11/30/22 10:48 EDT Magnesiumon 11-30-2022 Magnesium [Mass/Vol] 1.8 mg/dL Normal 1.3-2.[address] [facility] Comment on above: Performed By: #### 2 802536, 2404100, 10113684 ####[facility] [address] [place] [address] Message from Medicareon 11-21 Message from Medicare [id number] .00CD:127 Normal [facility] Progress Note-Physicianon Progress Note-Physician Normal [facility] Comment on above: Result Comment: Elec tronically Signed By: Joanie Jiménez MD\.br\Date and Time Signed: 11/30/22 15:13 EDT Progress Note-Physician Normal F [facility] Comment on above: Result Comment: Elec tronically Signed By: Lizeth Cedeno MD\.br\Date and Time Signed: 11/30/22 14:52 EDT UA With Cult Reflexon 2022 Bacteria LM Ql (Urine sed) TRACE Normal Trace [facility] Comment on above: Order Comment: Urina ry Catheter Insertion triggered Urinalysis With Culture Reflex order by discern. Performed By: #### 1 8836702 ####[facility] [address] [place] [address] Bilirubin Ql (U) Negative Normal Negative [facility] Comment on above: Order Comment: Urina ry Catheter Insertion triggered Urinalysis With Culture Reflex order by discern. Performed By: #### 1 4675144 ####[facility] [address] [place] [address] Clarity (U) CLEAR Normal Clear [facility] Comment on above: Order Comment: Urina ry Catheter Insertion triggered Urinalysis With Culture Reflex order by discern. Performed By: #### 1 2838564 ####[facility] [address] [place] [address] Color (U) YELLOW Normal Yellow [facility] Comment on above: Order Comment: Urina ry Catheter Insertion triggered Urinalysis With Culture Reflex order by discern. Performed By: #### 1 4200303 ####[facility] [address] [place] [address] Epithelial cells.squamous LM.HPF (Urine sed) [#/Area] 0-2 Normal 0-2 [facility] Comment on above: Order Comment: Urina ry Catheter Insertion triggered Urinalysis With Culture Reflex order by discern. Performed By: #### 1 4857248 ####[facility] [address] [place] [address] Glucose Test strip (U) [Mass/Vol] Negative Normal Negative [facility] Comment on above: Order Comment: Urina ry Catheter Insertion triggered Urinalysis With Culture Reflex order by discern. Performed By: #### 1 4456964 ####[facility] [address] [place] [address] Hemoglobin Ql (U) Negative Normal Negative [facility] Comment on above: Order Comment: Urina ry Catheter Insertion triggered Urinalysis With Culture Reflex order by discern. Performed By: #### 1 5045700 ####[facility] [address] [place] [address] Ketones (U) [Mass/Vol] Negative Normal Negative [facility] Comment on above: Order Comment: Urina ry Catheter Insertion triggered Urinalysis With Culture Reflex order by discern. Performed By: #### 1 6320323 ####[facility] [address] [place] [address] [place].plasma/[place].R BC (Bld) [Mass ratio] 0-3 Normal 0-3 [facility] Comment on above: Order Comment: Urina ry Catheter Insertion triggered Urinalysis With Culture Reflex order by discern. Performed By: #### 1 1950898 ####[facility] [address] [place] [address] Nitrite Ql (U) Negative Normal Negative [facility] Comment on above: Order Comment: Urina ry Catheter Insertion triggered Urinalysis With Culture Reflex order by discern. Performed By: #### 1 4744522 ####[facility] [address] [place] [address] pH (U) 6.0 [pH] Invalid Interpretation Code 5.0-9.0 [facility] Comment on above: Order Comment: Urina ry Catheter Insertion triggered Urinalysis With Culture Reflex order by discern. Performed By: #### 1 5044382 ####[address] [address] Protein (U) [Mass/Vol] Negative Normal Negative [facility] Comment on above: Order Comment: Urina ry Catheter Insertion triggered Urinalysis With Culture Reflex order by discern. Performed By: #### 1 8783980 ####[place] [address] Specific gravity (U) [Rel density] 1.010 Invalid Interpretation Code 1.005-1.030 [facility] Comment on above: Order Comment: Urina ry Catheter Insertion triggered Urinalysis With Culture Reflex order by discern. Performed By: #### 1 5007191 ####[place] [address] Type of Urine collection method Red Normal [facility] Comment on above: Order Comment: Urina ry Catheter Insertion triggered Urinalysis With Culture Reflex order by discern. Performed By: #### 1 6357282 ####[place] [address] Urobilinogen Qn (U) 0.2 {Lei'U}/dL Normal 0.0-1.0 [facility] Comment on above: Order Comment: Urina ry Catheter Insertion triggered Urinalysis With Culture Reflex order by discern. Performed By: #### 1 1201387 ####[place] [address]3057 WBC Auto Ql (U) Negative Normal Negative [facility] Comment on above: Order Comment: Urina ry Catheter Insertion triggered Urinalysis With Culture Reflex order by discern. Performed By: #### 1 2650969 ####[place] [address]3057 WBC casts LM.LPF (Urine sed) [#/Area] 0-3 Normal [facility] Comment on above: Order Comment: Urina ry Catheter Insertion triggered Urinalysis With Culture Reflex order by discern. Performed By: #### 1 6360211 ####[address] [place] [address] WBC LM.HPF (Urine sed) [#/Area] 0-5 Normal 0-5 [facility] Comment on above: Order Comment: Urina ry Catheter Insertion triggered Urinalysis With Culture Reflex order by discern. Performed By: #### 1 0747486 ####[facility] [address] [place] [address] URINALYSISOrdered By: Houston Castillo on 11-30-2022 Bacteria [...] AM) Normal Negative [facility] UA Auto SS [place].plasma/[place].R BC (Bld) [Mass ratio] 0-3 /HPF Normal [...] [facility] UA Auto SS Urobilinogen Qn (U) 0.2990974 {Lei'U}/dL Normal 0.0 - 1.0 EU/dL [facility] UA Auto SS WBC Auto Ql (U) Negative (11/30/22 11:00 AM) Normal Negative [facility] UA Auto SS WBC casts LM.LPF (Urine sed) [#/Area] 0-3 (11/30/22 11:00 AM) Normal [facility] UA Auto SS WBC LM.HPF (Urine sed) [#/Area] 0-5 /HPF Normal 0-5/HPF [facility] UA Auto SS eGFRon 11-30-2022 GFR/1.73 sq M.predicted among non-blacks MDRD (S/P/Bld) [Vol rate/Area] 69 mL/min/1.73 m2 Normal >=59 [facility] Comment on above: Order Comment: Order added by Discern Expert. Result Comment: Polishing Machine Operator Helper earnest kidney disease could be indicated at eGFR's of less than 60 mL/min/1.73m2. Kidney failure is indicated at less than 15 mL/min/1.73m2. Performed By: #### 2 759482, 1059259, 63947569 ####[facility] [address] [place] [address] Auto Diffon 11-29-2022 Basophils/100 WBC (Bld) 0.5 % Normal 0.0-2.0 F [facility] Comment on above: Order Comment: Order Added by Discern Expert. Performed By: #### 2 762445, 5604792, 8979818, 95442482, 23632686, 1404629, 59383822, 3392653, 02297723, 679345786, 0392305, 7944008 ####[facility] [address] [place] [address] Basophils/Leukocytes Auto (Bld) [Pure # fraction] 0.0 E9/L Normal 0.0-0.2 [facility] Comment on above: Order Comment: Order Added by Discern Expert. Performed By: #### 2 732150, 9624882, 8328101, 29439100, 24093649, 8652810, 14030931, 6863921, 63215219, 459143979, 0601283, 5788649 ####[facility] [address] [place] [address] Eosinophils/100 WBC (Bld) 8.4 % High 0.0-8.0 [facility] Comment on above: Order Comment: Order Added by Discern Expert. Performed By: #### 2 230935, 6994048, 3378602, 98944033, 07876171, 0783997, 24677837, 3133171, 56254136, 832064799, 2301637, 6477970 ####[facility] [address] [place] [address] Eosinophils/Leukocytes Auto (Bld) [Pure # fraction] 0.6 E9/L High 0.0-0.5 [facility] Comment on above: Order Comment: Order Added by Discern Expert. Performed By: #### 2 126663, 8887667, 0222088, 56575063, 04477205, 1197166, 19666668, 7453915, 69454519, 662568678, 3733553, 3914854 ####[facility] [address] [place] [address] Lymphocytes/100 WBC (Bld) 15.8 % Normal 14.0-50.0 [facility] Comment on above: Order Comment: Order Added by Discern Expert. Performed By: #### 2 341450, 5763136, 8569549, 29998302, 37306087, 1427959, 58009556, 0759112, 20927076, 736128059, 8099001, 3512256 ####[facility] [address] [place] [address] Lymphocytes/Leukocytes Auto (Bld) [Pure # fraction] 1.2 E9/L Normal 1.0-4.0 [facility] Comment on above: Order Comment: Order Added by Discern Expert. Performed By: #### 2 419063, 7657330, 8209821, 04160243, 53888990, 5252013, 93101480, 2728591, 59297201, 663471314, 9893827, 1449556 ####[facility] [address] [place] [address] Monocytes/100 WBC (Bld) 8.4 % Normal 4.0-14.0 [facility] Comment on above: Order Comment: Order Added by Discern Expert. Performed By: #### 2 177066, 6501096, 4414376, 64285856, 42170449, 7112628, 42309207, 0051845, 30564888, 825761052, 8043842, 6420161 ####[facility] [address] [place] [address] Monocytes/Leukocytes Auto (Bld) [Pure # fraction] 0.6 E9/L Normal 0.2-1.0 [facility] Comment on above: Order Comment: Order Added by Discern Expert. Performed By: #### 2 940201, 2410133, 7871338, 72081460, 21194791, 4926064, 60226330, 2456557, 40059284, 000460322, 6949464, 9984375 ####[facility] [address] [place] [address] Neutrophils/100 WBC (Bld) 66.9 % Normal 36.0-75.0 [facility] Comment on above: Order Comment: Order Added by Discern Expert. Performed By: #### 2 659866, 5056320, 8212135, 16826550, 07349530, 9891592, 30569477, 5231216, 21050622, 184483610, 3398472, 9810691 ####[facility] [address] [place] [address] Neutrophils/Leukocytes Auto (Bld) [Pure # fraction] 5.0 E9/L Normal 2.0-7.5 [facility] Comment on above: Order Comment: Order Added by Discern Expert. Performed By: #### 2 621893, 7863565, 5777929, 13820607, 75844118, 1517725, 56017631, 0059407, 99792817, 059829140, 9829115, 9680612 ####[facility] [facility] [address] [place] [address] BMPon 11-29-2022 Anion gap [Moles/Vol] 13 mmol/L Normal 6-16 [facility] Comment on above: Performed By: #### 2 360929, 1979954, 4815187, 30184527, 66419487, 2775081, 07152936, 7017318, 93979308, 338351648, 1760296, 3766875 ####[facility] [address] [place] [address] Calcium [Mass/Vol] 9.1 mg/dL Normal 8.9-11.1 [facility] Comment on above: Performed By: #### 2 709246, 1451397, 9927865, 66573360, 00156668, 9615624, 97544438, 0691512, 23793106, 240582848, 1973846, 5742696 ####[facility] [address] [place] [address] Chloride [Moles/Vol] 102 mmol/L Normal 101-[address] [facility] Comment on above: Performed By: #### 2 372068, 7579211, 2504738, 00272026, 28736425, 8008441, 88913480, 4596955, 21461451, 244700704, 8023925, 6708333 ####[facility] [address] [place] [address] CO2 [Moles/Vol] 29 mmol/L Normal 21-31 [facility] Comment on above: Performed By: #### 2 151024, 6912972, 6662734, 07687243, 28362805, 4813233, 23316317, 9407965, 72394464, 130276911, 7704360, 3061378 ####[facility] [address] [place] [address] Creatinine [Mass/Vol] 1.1 mg/dL Normal 0.5-1.3 [facility] Comment on above: Performed By: #### 2 743536, 4502178, 6979558, 91192803, 92675280, 7632061, 55917830, 7067793, 66005712, 596203192, 9621696, 0001016 ####[facility] [address] [place] [address] Glucose [Mass/Vol] 95 mg/dL Normal 55-199 [facility] Comment on above: Result Comment: If t his glucose result represents a fasting glucose, interpretation should refer to the following reference range: 55-99 mg/dL Performed By: #### 2 534564, 4083641, 4897834, 03376233, 70044092, 1724403, 33266645, 0716529, 57651192, 320148382, 3317051, 2818553 ####[facility] [address] [place] [address] Potassium [Moles/Vol] 3.9 mmol/L Normal 3.5-5.3 [facility] Comment on above: Performed By: #### 2 233370, 5559885, 6947546, 66974977, 19204946, 7971506, 88686906, 2973621, 49256892, 683679749, 9319704, 7979840 ####[facility] [address] [place] [address] Sodium [Moles/Vol] 140 mmol/L Normal 135-145 [facility] Comment on above: Performed By: #### 2 782222, 7377547, 3542012, 46784652, 17461832, 0334868, 27015324, 6288454, 11381631, 316492492, 8472480, 6279560 ####[facility] [address] [place] [address] Urea nitrogen [Mass/Vol] 16 mg/dL Normal 5-21 [facility] Comment on above: Performed By: #### 2 222633, 0318870, 5459007, 00560392, 37612344, 7070558, 25275643, 1210704, 70348507, 799216408, 2244578, 3855935 ####[facility] [address] [place] [address] Urea nitrogen/Creatinine [Mass ratio] 14 No Units Normal 10-20 [facility] Comment on above: Performed By: #### 2 196512, 5051911, 6405580, 84265073, 75408131, 8408050, 14541613, 2566264, 85581178, 157733727, 3284773, 4069247 ####[facility] [address] [place] [address] BNPon 11-29-2022 Natriuretic peptide B (Bld) [Mass/Vol] 855 pg/mL High 5-80 [facility] Comment on above: Performed By: #### 2 996609, 2202477, 1414615, 92358470, 58007743, 1330360, 55597157, 6832286, 83351954, 650890146, 9633159, 5978545 ####[facility] [address] [place] [address] CBC w/ Auto Diffon 3 Erythrocyte distribution width (RBC) [Ratio] 14.9 % High 10.9-14.2 [facility] Comment on above: Performed By: #### 2 704204, 6550835, 3005604, 63287600, 83905403, 8496154, 06887558, 0849678, 12874265, 710040108, 5665923, 5672490 ####[facility] [address] [place] [address] Hematocrit (Bld) [Volume fraction] 38.1 % Normal 37.7-49.0 [facility] Comment on above: Performed By: #### 2 834656, 8957472, 9461949, 34904517, 67263116, 8918464, 17526205, 8424162, 80246103, 197437620, 4035121, 1026603 ####[facility] [address] [place] [address] Hemoglobin (Bld) [Mass/Vol] 12.8 g/dL Low 13.5-17.5 [facility] Comment on above: Performed By: #### 2 619125, 9193036, 0057225, 06639590, 19634483, 1281356, 78682481, 0513346, 18660745, 508310532, 4904430, 5481957 ####[facility] [address] [place] [address] MCH (RBC) [Entitic mass] 29.0 pg Normal 27.0-34.0 [facility] Comment on above: Performed By: #### 2 966422, 3970670, 7350884, 82205203, 44593917, 2479305, 85960988, 8030102, 34906014, 642099349, 6588429, 1308969 ####[facility] [address] [place], [place] [address] MCHC (RBC) [Mass/Vol] 33.7 g/dL Normal 31.4-36.0 [facility] Comment on above: Performed By: #### 2 824175, 7669308, 2551471, 68555528, 22302008, 5231602, 82199794, 1046046, 93269725, 311662680, 7339677, 6793093 ####[facility] [address] [place] [address] MCV (RBC) [Entitic vol] 86.1 fL Normal 80.0-100.0 [facility] Comment on above: Performed By: #### 2 301340, 7570477, 1336597, 74045330, 04060061, 4514806, 03360997, 8540253, 78980708, 166135058, 5637770, 6006790 ####[facility] [address] [place] [address] Platelet mean volume (Bld) [Entitic vol] 10.9 fL High 6.4-10.8 [facility] Comment on above: Performed By: #### 2 941559, 2252973, 4104530, 94601817, 20499650, 3012701, 58286082, 2581782, 50555950, 271609546, 5837226, 4047734 ####[facility] [address] [place] [address] Platelets (Bld) [#/Vol] 189.0 E9/L Normal 150.0-500.0 [facility] Comment on above: Performed By: #### 2 802517, 9930461, 4770350, 03759019, 01636330, 5210250, 55866673, 9509981, 80635029, 172238534, 8015580, 3530397 ####[address] [place] [address] RBC (Bld) [#/Vol] 4.4 E12/L Normal 4.3-5.9 [facility] Comment on above: Performed By: #### 2 467816, 8707343, 2192551, 50618420, 27453625, 9387318, 14953051, 3667515, 57873950, 387700110, 9360147, 0014267 ####[facility] [address] [place] [address] WBC corrected for nucl RBC Auto (Bld) [#/Vol] 7.4 E9/L Normal 4.0-11.0 [facility] Comment on above: Performed By: #### 2 802819, 0497098, 4663265, 35834191, 50735502, 7489279, 75845000, 8073703, 12419668, 626640091, 3805869, 0126260 ####[facility] [address] [place] [address] CHEMISTRYOrdered By: SYSTEM SYSTEM on 11-29-2022 Albumin [...] 69 mL/min/1.73 m2 Normal >=59mL/min/ 1.73 m2 [facility] Chem S Globulin (S) [Mass/Vol] 3.1 g/dL [...] 37.00 pg/mL Normal 15.90 - 38.40 pg/mL [facility] Remisol CHEMISTRYOrdered By: Natalie Soto on 11-29-2022 Natriuretic peptide B (Bld) [Mass/Vol] 855 pg/mL High 5 - 80 pg/mL [facility] HemeManSS CHEMISTRYOrdered By: Marian peterson DomainUser on 11-29-2022 Calcium.ionized ISE [Mass/Vol] 4.8 mg/dL Invalid Interpretation Code 4.5-5.6mg/d L [facility] SendOutsSS Comment on above: Result Comment: Perf ormed at: [facility] [address] [place], [place] [id number] PhD Michael Cortes CKon 11-29-2022 CK [Catalytic activity/Vol] 1096 Int._Unit/L Abnormal 14-261 [facility] Comment on above: Result Comment: Crit ical Result verified by repeat analysis\Critical Result S_CK:[id number] Called to MANAS BARBA AT by AMY JOHNSON and read back for confirmation at 11/29/2022 06:40:15 Performed By: #### 2 881809, 1412189, 4037193, 24020820, 27633784, 3055043, 59371044, 9957598, 31356747, 735790962, 6860955, 8280854 ####[facility] [address] [facility] [place] [address] CT Abdomen/Pelvis w/ Contras ton 11-29-2022 CT Abdomen/Pelvis w/ Contrast Normal [facility] CT Head or Brain w/o Contras ton 11-29-2022 CT Head or Brain w/o Contrast Normal [facility] CTA Cheston 11-29-2022 CTA Chest Normal [facility] Capillary Glucose POCon Glucose [Mass/Vol] 122 mg/dL High 55-99 [facility] Comment on above: Result Comment: Gareth GARDINER Performed By: #### 2 65598068 ####[facility] [address] [place] [address] Glucose [Mass/Vol] 174 mg/dL High 55-99 [facility] Comment on above: Performed By: #### 2 23011499 ####[facility] [address] [place] [address] Glucose [Mass/Vol] 107 mg/dL High 55-99 [facility] Comment on above: Result Comment: Gareth GARDINER Performed By: #### 2 67069091 ####[facility] [address] [place] [place] [address] Consultation Noteon 11-30-19 Consultation Note Normal [facility] Comment on above: Result Comment: Elec tronically Signed By: Marcus POTTS, [place]\Date and Time Signed: 11/29/22 14:44 EDT ED Clinical Summaryon 2022 ED Clinical Summary Normal [facility] ED Note-Physicianon 11-30-19 ED Note-Physician Normal [facility] Comment on above: Result Comment: Elec tronically Signed By: Coretta STEIN, Elkin Prajapati\.candice\Date and Time Signed: 11/28/22 22:32 EDT ED Patient Education Noteon 11-29-2022 ED Patient Education Note Normal [facility] ED Patient Summaryon 023 ED Patient Summary Normal [facility] HEMATOLOGYOrdered By: SYSTEM SYSTEM on [...] 4.4 E12/L Normal 4.3 - 5.9 E12/L [facility] HemeAutoSS Sed Rate Automated 17 mm/h Normal 0 - 19 mm/hr FT HemeAutoSS WBC corrected for nucl RBC Auto (Bld) [#/Vol] 7.4 E9/L Normal 4.0 - 11.0 E9/L [facility] HemeAutoSS Hep Func Panelon 11-29-2022 Albumin [Mass/Vol] 3.6 g/dL Normal 3.3-5.0 [facility] Comment on above: Performed By: #### 2 319964, 6585050, 9282297, 16253441, 37312007, 1183086, 02943268, 9341181, 30970696, 614259522, 9451268, 3962636 ####[facility] [address] [place] [address] Albumin/Globulin (S) [Mass conc ratio] 1.2 Normal 1.1-2.2 [facility] Comment on above: Performed By: #### 2 735583, 9385544, 6464521, 92739357, 89096523, 4551909, 71913424, 0616280, 42386503, 177423614, 6216134, 6898933 ####[facility] [address] [place] [address] ALP [Catalytic activity/Vol] 40 Int._Unit/L Normal 21-98 [facility] Comment on above: Performed By: #### 2 315631, 8119732, 9874821, 61180002, 85126897, 1259568, 96542957, 9889011, 14232594, 879933470, 9029312, 3461540 ####[facility] [address] [place] [address] ALT No additional P-5'-P [Catalytic activity/Vol] 17 Int._Unit/L Normal 6-46 [facility] Comment on above: Performed By: #### 2 857084, 2008108, 5531293, 60158560, 81989321, 1461959, 61646704, 4698870, 11002111, 259697209, 5287016, 4963776 ####[facility] [address] [place] [address] AST [Catalytic activity/Vol] 33 Int._Unit/L Normal 5-43 [facility] Comment on above: Performed By: #### 2 089295, 0868094, 9515348, 99972916, 86801306, 8151188, 28131738, 4338467, 77564968, 927576418, 8815056, 0344840 ####[facility] [address] [place] [address] Bilirubin [Mass/Vol] 1.1 mg/dL Normal 0.0-1.[address] [facility] Comment on above: Performed By: #### 2 120141, 8010097, 5349580, 06054877, 34049100, 5307557, 66849787, 2351051, 18201342, 054833041, 2014727, 0154942 ####[facility] [address] [place] [address] Bilirubin.direct [Mass/Vol] 0.2 mg/dL Normal 0.1-0.4 [facility] Comment on above: Performed By: #### 2 693302, 8348249, 8412750, 77471779, 75069351, 9247573, 48060673, 3690838, 37830448, 040634809, 9347483, 5289850 ####[facility] [address] [place] [address] Bilirubin.indirect [Mass or moles/Vol] 0.9 mg/dL Normal 0.1-0.9 [facility] Comment on above: Performed By: #### 2 889319, 6804986, 9557483, 70858779, 22091110, 0280798, 09466176, 0995589, 74461341, 270213072, 3415705, 2041935 ####[facility] [address] [place] [address] Globulin (S) [Mass/Vol] 3.1 g/dL Normal 1.4-4.0 [facility] Comment on above: Performed By: #### 2 229611, 3889886, 0794706, 13665272, 61924972, 2854611, 50631649, 7200494, 40493399, 214901388, 2085212, 5897399 ####[facility] [address] [place] [address] Protein [Mass/Vol] 6.7 g/dL Normal 6.0-7.8 [facility] Comment on above: Performed By: #### 2 884329, 0578799, 8252581, 67691293, 88045062, 7870126, 37732048, 9560540, 56276340, 328075048, 5435100, 1174636 ####[facility] [address] [place] [address] Interdisciplinary Note - Santosh e Manageron 11-29-2022 Interdisciplinary Note - Human Resources Recruiter Normal [facility] Comment on above: Result Comment: Elec tronically Signed By: Jose HAYDEN, Norma\.br\Date and Time Signed: 11/29/22 15:07 EDT Lipid Panelon 11-29-2022 Cholesterol [Mass/Vol] 114 mg/dL Low 120-200 [facility] Comment on above: Performed By: #### 2 696322, 2946696, 0532224, 79436759, 14920787, 8887593, 69303292, 5313037, 51583875, 332531494, 6357714, 4815742 ####[facility] [address] [place] [address] Cholesterol in HDL [Mass/Vol] 50 mg/dL Invalid Interpretation Code [facility] Comment on above: Result Comment: HDL > or equal to 60 mg/dL: Low cardiovascular riskHDL < 40 mg/dL : High cardiovascular risk Performed By: #### 2 218394, 6136365, 9979612, 12778816, 79598930, 4892270, 34869005, 9631718, 38304791, 612573198, 5030388, 5045971 ####[facility] [address] [place] [address] Cholesterol in LDL [Mass/Vol] 43 mg/dL Normal <=129 [facility] Comment on above: Performed By: #### 2 259822, 6057151, 6263546, 67986724, 50312326, 8632738, 64812041, 1057360, 85469035, 814879795, 7357063, 7112091 ####[facility] [address] [place] [address] Cholesterol in VLDL [Mass/Vol] 14 mg/dL Normal 7-40 [facility] Comment on above: Performed By: #### 2 875208, 2865908, 1958285, 94164328, 10834005, 9348733, 81322059, 1649013, 02552994, 220615065, 5378013, 0298667 ####[facility] [address] [place] [address] Triglyceride [Mass/Vol] 72 mg/dL Normal <=149 F [facility] Comment on above: Performed By: #### 2 984665, 0229513, 2451806, 43104265, 89903118, 4322305, 49224612, 5464538, 97605450, 000635531, 0478838, 1456270 ####[facility] [address] [place] [address] Monitor Recordon 11-29-2022 Monitor Record [id number]# 1.00CD:127 Normal [facility] Monitor Record [id number] 7 [id number]# 1.00CD:127 Normal [facility] Monitor Record [id number]# 1.00CD:127 Normal [facility] Monitor Record [id number]# 1.00CD:127 Normal [facility] Monitor Record [id number]# 1.00CD:127 Normal [facility] Monitor Record [id number] 7 [id number]# 1.00CD:127 Normal [facility] Monitor Record [id number] 7 [id number]# 1.00CD:127 Normal [facility] Monitor Record [id number] 7 [id number]# 1.00CD:127 Normal [facility] Progress Note-Physicianon Progress Note-Physician Normal [facility] Comment on above: Result Comment: Elec tronically Signed By: Alex STEIN, [place].br\Date and Time Signed: 11/29/22 10:54 EDT RAD - Preliminary Cat Scan R eporton 11-29-2022 RAD - Preliminary Cat Scan Report [id number] #1.00CD:127 Normal [facility] Sed Rate Automatedon 023 Sed Rate Automated 17 mm/hr Normal 0-19 [facility] Comment on above: Performed By: #### 2 636701, 3697201, 5886909, 28345907, 06623602, 8819294, 53511970, 3023518, 55464238, 818449388, 2115693, 8552237 ####[facility] [address] [place] [address] TSH With T4fr Reflexon 11-29 TSH Qn 3.43 m[IU]/L Normal 0.34-5.60 [facility] Comment on above: Performed By: #### 2 371326, 1148788, 3192209, 30920502, 32366783, 6246093, 08715327, 2022243, 52719848, 434758921, 8660321, 4175130 ####[facility] [address] [place] [address] Troponin 6 Hr.on 11-29-2022 Troponin I.cardiac [Mass/Vol] 32.60 pg/mL Normal 15.90-38.40 [facility] Comment on above: Result Comment: The 95% CI (Confidence Interval) PPV (Positive Predictive Value) for myocardial infarction in females is 38 pg/mL, in males 51 pg/mL. The results should be used in conjunction with clinical conditions of myocardial infarction.(Access High Sensitivity Troponin I Instructions For Use, [employer] [place], December 2017) Performed By: #### 1 [id number] ####[facility] [address] [place] [address] Troponin 9 Hr.on 11-29-2022 Troponin I.cardiac [Mass/Vol] 37.00 pg/mL Normal 15.90-38.40 [facility] Comment on above: Result Comment: The 95% CI (Confidence Interval) PPV (Positive Predictive Value) for myocardial infarction in females is 38 pg/mL, in males 51 pg/mL. The results should be used in conjunction with clinical conditions of myocardial infarction.(Access High Sensitivity Troponin I Instructions For Use, [employer] [place], December 2017) Performed By: #### 1 4391712 ####[facility] [address] [place] [address] Vitamin D 25 Hydroxyon 11-29 25-hydroxyvitamin D3 [Mass/Vol] ng/mL Low 30.0-100.0 [facility] Comment on above: Result Comment: Vit palacios D deficiency has been defined as a level of serum 25-OH vitamin D less than 20 ng/mL (1,2) by the [employer] of [employer] and an Endocrine Society practice guideline. The Endocrine Society further defined vitamin D insufficiency as a level between 21 and 29 ng/mL (2). 1. IOM ([place] of [employer]). 2010. Dietary reference intakes for calcium and D. [place]: The National Academies Press. 2. Patricia MF, [place], Reji PETERS, et al. Evaluation, treatment, and prevention of vitamin D deficiency: an Endocrine Society clinical practice guideline. JCEM. 2010; 96 (7):1911-30. Performed By: #### 2 317506, 5491842, 5763617, 75331617, 46855972, 9424516, 66720697, 5925434, 90166067, 714181953, 8885935, 3818932 ####[facility] [address] [place] [address] eGFRon 11-29-2022 GFR/1.73 sq M.predicted among non-blacks MDRD (S/P/Bld) [Vol rate/Area] 69 mL/min/1.73 m2 Normal >=59 [facility] Comment on above: Order Comment: Order added by Discern Expert. Result Comment: Polishing Machine Operator Helper earnest kidney disease could be indicated at eGFR's of less than 60 mL/min/1.73m2. Kidney failure is indicated at less than 15 mL/min/1.73m2. Performed By: #### 2 735683, 4136251, 7009052, 94202945, 85421509, 4230582, 74291561, 5330604, 57435547, 277266844, 2819578, 4105211 ####[facility] [address] [place] [address] Auto Diffon 11-28-2022 Basophils/100 WBC (Bld) 0.7 % Normal 0.0-2.0 F [facility] Comment on above: Order Comment: Order Added by Discern Expert. Performed By: #### 1 5037437, 4915774, 0396669, 1068528, 68850691 ####[address] [place] [address] Basophils/Leukocytes Auto (Bld) [Pure # fraction] 0.0 E9/L Normal 0.0-0.2 [facility] Comment on above: Order Comment: Order Added by Discern Expert. Performed By: #### 1 4173988, 0833487, 5269303, 3519245, 59988053 ####[address] [address] Eosinophils/100 WBC (Bld) 7.4 % Normal 0.0-8.0 [facility] Comment on above: Order Comment: Order Added by Discern Expert. Performed By: #### 1 2745933, 6614615, 0480694, 1164838, 70120358 ####[address] [address] Eosinophils/Leukocytes Auto (Bld) [Pure # fraction] 0.5 E9/L Normal 0.0-0.5 [facility] Comment on above: Order Comment: Order Added by Discern Expert. Performed By: #### 1 4077654, 0406111, 5579977, 6473033, 87803344 ####[address] [address] Lymphocytes/100 WBC (Bld) 9.3 % Low 14.0-50.0 [facility] Comment on above: Order Comment: Order Added by Bethany Expert. Performed By: #### 1 8640011, 6631974, 5055463, 6106778, 71887623 ####[address] [address] Lymphocytes/Leukocytes Auto (Bld) [Pure # fraction] 0.7 E9/L Low 1.0-4.0 [facility] Comment on above: Order Comment: Order Added by Bethany Expert. Performed By: #### 1 2580828, 8052308, 3854988, 7274158, 17619136 ####[address] [address] Monocytes/100 WBC (Bld) 6.6 % Normal 4.0-14.0 F [facility] Comment on above: Order Comment: Order Added by Discern Expert. Performed By: #### 1 0417043, 8756663, 2265644, 1348661, 52204908 ####[facility] [address] [place] [address] Monocytes/Leukocytes Auto (Bld) [Pure # fraction] 0.5 E9/L Normal 0.2-1.0 [facility] Comment on above: Order Comment: Order Added by Discern Expert. Performed By: #### 1 8784910, 0899979, 6639731, 7704995, 18051064 ####[address] [place] [address] Neutrophils/100 WBC (Bld) 76.0 % High 36.0-75.0 [facility] Comment on above: Order Comment: Order Added by Bethany Expert. Performed By: #### 1 3410023, 2208796, 4855702, 8906490, 95286811 ####[facility] [address] [place] [address] Neutrophils/Leukocytes Auto (Bld) [Pure # fraction] 5.4 E9/L Normal 2.0-7.5 [facility] Comment on above: Order Comment: Order Added by Discern Expert. Performed By: #### 1 9805518, 5457404, 9159369, 0802426, 81002336 ####[facility] [address] [place] [address] BMPon 11-28-2022 Creatinine [Mass/Vol] 1.0 mg/dL Normal 0.5-1.3 [facility] Comment on above: Performed By: #### 1 0736554, 3766233, 8266298, 7499324, 90194928 ####[address] [place] [address] Urea nitrogen [Mass/Vol] 16 mg/dL Normal 5-21 [facility] [facility] Comment on above: Performed By: #### 1 [id number], 2625395, 4663385, 8237242, 87087331 ####[facility] [address]Normaria [place] [address] Urea nitrogen/Creatinine [Mass ratio] 16 No Units Normal 10-20 [facility] Comment on above: Performed By: #### 1 0811596, 7294202, 4932897, 1894337, 85400129 ####[facility] [address] [place] [address] Anion gap [Moles/Vol] 10 mmol/L Normal 6-16 [facility] Comment on above: Performed By: #### 1 9505719, 4337120, 1774528, 1636199, 31990445 ####[facility] [address] [place] [address] Calcium [Mass/Vol] 8.8 mg/dL Low 8.9-11.1 [facility] Comment on above: Performed By: #### 1 3912882, 8022579, 6220539, 4867022, 45482090 ####[facility] [address]qv[address] [place] [address] Chloride [Moles/Vol] 105 mmol/L Normal 101-[address] [facility] Comment on above: Performed By: #### 1 9800975, 9180265, 2503523, 3133638, 87616487 ####[facility] [address] [place] [address] CO2 [Moles/Vol] 28 mmol/L Normal 21-31 [facility] Comment on above: Performed By: #### 1 9164378, 4313151, 8866407, 7452885, 84503945 ####[facility] [address]frzgj[address] [place] [address] Glucose [Mass/Vol] 114 mg/dL Normal 55-199 [facility] Comment on above: Result Comment: If t his glucose result represents a fasting glucose, interpretation should refer to the following reference range: 55-99 mg/dL Performed By: #### 1 1796845, 2561835, 9738671, 0254474, 12966075 ####[facility] [address] AveNormaria [place] [address] Potassium [Moles/Vol] 4.1 mmol/L Normal 3.5-5.3 [facility] Comment on above: Performed By: #### 1 6400786, 7407336, 8661691, 5837509, 09751286 ####[facility] [address] [place] [address] Sodium [Moles/Vol] 139 mmol/L Normal 135-145 [facility] Comment on above: Performed By: #### 1 3249762, 4539649, 5248010, 7768887, 04870573 ####[facility] [address] [place] [address] Blood Gas Art, with Lytes, G christal, [place] 11-28-2022 a/A Ratio Art 53.40 % Normal >=0.80 [facility] Comment on above: Performed By: #### 4 [id number] ####[facility] [address] [place] [address] AaDO2 Art 64.9 mmHg High 5.0-15.0 [facility] Comment on above: Performed By: #### 4 [id number] ####[facility] [address] [place] [address] Allens Test Positive Normal [facility] Comment on above: Performed By: #### 4 44509794 ####[facility] [address] [place] [address] Base Excess Arterial 2.9 mmol/L Normal >=2.8 [facility] Comment on above: Performed By: #### 4 [id number] ####[facility] [address] [place] [address] cCa2+ Art 4.88 mg/dL Normal 4.40-5.30 [facility] Comment on above: Performed By: #### 4 72905517 ####[facility] [address] [place] [address] cCl- Art 103.0 mmol/L Normal 101.0-111.0 [facility] Comment on above: Performed By: #### 4 10589751 ####[facility] [address] [facility] [place] [address] cGlu Art 98 mg/dL Normal 55-99 [facility] Comment on above: Performed By: #### 4 63197756 ####[facility] [address] [place] [address] cK+ Art 3.6 mmol/L Normal 3.5-5.3 [facility] Comment on above: Performed By: #### 4 25199881 ####[place] [address] [facility] [place] [address] cLac Art .6 mmol/L Normal .5-2.2 [facility] Comment on above: Performed By: #### 4 [id number] ####[place] [facility] [place] [address] form setter steel pan forms+ Art 139.0 mmol/L Normal 135.0-145.0 [facility] Comment on above: Performed By: #### 4 13770815 ####[place] [facility] [place] [address] Drawn by nmb Invalid Interpretation Code [facility] Comment on above: Performed By: #### 4 [id number] ####[place] [facility] [place] [address] FCOHb Art 1.5 % Normal 1.5-4.9 [facility] Comment on above: Result Comment: Refe rence rangeNonsmoker <1.5%Smoker <5.0%Heavy Smoker <9.0% Performed By: #### 4 15210938 ####[facility] [address] [place] [address] FIO2 BG 28 Invalid Interpretation Code [facility] Comment on above: Performed By: #### 4 [id number] ####[facility] [address] [facility] [place] [address] Flow 2 Invalid Interpretation Code [facility] Comment on above: Performed By: #### 4 [id number] ####[facility] [address] [place] [address] FMetHb Art 0.3 % Normal 0.0-1.9 [facility] Comment on above: Performed By: #### 4 95977325 ####[address] [address] FO2Hb Art 93.7 % Normal 93.0-100.0 [facility] Comment on above: Performed By: #### 4 93726708 ####[address] [address] HCO3 (Bld) [Moles/Vol] 26.9 mmol/L High 22.0-26.0 [facility] Comment on above: Performed By: #### 4 52223109 ####[address] [address] Hemoglobin (Bld) [Mass/Vol] 11.9 g/dL Low 12.0-17.0 [facility] Comment on above: Performed By: #### 4 68282697 ####[address] [address] Oxygen saturation in Blood 95.4 % Normal 95.0-100.0 [facility] Comment on above: Performed By: #### 4 97714424 ####[address] [address] P CO2 Arterial 47.6 mmHg High 35.0-45.0 [facility] Comment on above: Performed By: #### 4 73174801 ####[address] [address] P O2 Arterial 74.3 mmHg Low 80.0-100.0 [facility] Comment on above: Performed By: #### 4 86295821 ####[address] [place] [address] pH Arterial 7.387 Normal 7.350-7.450 [facility] Comment on above: Performed By: #### 4 45927774 ####[address] [address] Sample Site R Radial Normal [facility] Comment on above: Performed By: #### 4 65118978 ####[facility] [address] [place] [address] Sample Type Arterial Draw Normal [facility] Comment on above: Performed By: #### 4 58248662 ####[facility] [address] [place] [address] CBC w/ Auto Diffon 3 Erythrocyte distribution width (RBC) [Ratio] 14.8 % High 10.9-14.2 [facility] Comment on above: Performed By: #### 1 4768808, 6083283, 4436871, 2572138, 69328785 ####[place] [address] [place] [address] Hematocrit (Bld) [Volume fraction] 37.3 % Low 37.7-49.0 [facility] Comment on above: Performed By: #### 1 9025177, 0448100, 4212046, 7724518, 34266667 ####[facility] [address] [place] [address] Hemoglobin (Bld) [Mass/Vol] 12.3 g/dL Low 13.5-17.5 [facility] Comment on above: Performed By: #### 1 2768748, 9762546, 7043156, 7995800, 34815471 ####[facility] [address] [place] [address]957 MCH (RBC) [Entitic mass] 28.3 pg Normal 27.0-34.0 [facility] Comment on above: Performed By: #### 1 6954413, 5532955, 0796119, 0695772, 45577095 ####[facility] [address] [place] [address] MCHC (RBC) [Mass/Vol] 33.0 g/dL Normal 31.4-36.0 [facility] Comment on above: Performed By: #### 1 0329202, 7942856, 6638110, 1139804, 33236659 ####[facility] [address] [place] [address] MCV (RBC) [Entitic vol] 85.9 fL Normal 80.0-100.0 F [facility] Comment on above: Performed By: #### 1 7787285, 8456877, 9715237, 2958783, 81872395 ####[address] [place] [address] Platelet mean volume (Bld) [Entitic vol] 10.4 fL Normal 6.4-10.8 [facility] Comment on above: Performed By: #### 1 4977481, 9697361, 8502293, 6210489, 70226174 ####[address] [address] Platelets (Bld) [#/Vol] 189.0 E9/L Normal 150.0-500.0 [facility] Comment on above: Performed By: #### 1 7666117, 7781148, 1498158, 6350807, 91004795 ####[address] [address] RBC (Bld) [#/Vol] 4.3 E12/L Normal 4.3-5.9 [facility] Comment on above: Performed By: #### 1 4433765, 0356440, 6922297, 3131462, 30527908 ####[address] [address] WBC corrected for nucl RBC Auto (Bld) [#/Vol] 7.1 E9/L Normal 4.0-11.0 [facility] Comment on above: Performed By: #### 1 5830552, 8985317, 1726833, 9044644, 47804719 ####[address] [address] CHEMISTRYOrdered By: SYSTEM SYSTEM on 11-28-2022 Troponin I.cardiac [Mass/Vol] 32.60 pg/mL Normal 15.90 - 38.40 pg/mL [facility] Troponin I.cardiac [Mass/Vol] 26.90 pg/mL Normal 15.90 - 38.40 pg/mL [facility] Remisol Consent for Treatmenton Consent for Treatment [id number] .00CD:127 Normal [facility] ED Note-Physicianon 11-29-19 ED Note-Physician Normal [facility] Comment on above: Result Comment: [...] - 2.2 mmol/L FT Resp Auto SS form setter steel pan forms+ Art 139.0 mmol/L Normal 135.0 - 145.0 [...] 26.9 mmol/L High 22.0 - 26.0 mmol/L [facility] Resp Auto SS Hemoglobin (Bld) [Mass/Vol] 11.9 g/dL Low 12.0 - 17.0 gm/dL [facility] Resp Auto SS P CO2 Arterial 47.6 mm[Hg] High 35.0 - 45.0 mmHg [facility] Resp Auto SS P O2 Arterial 74.3 mm[Hg] Low 80.0 - 100.0 mmHg FT Resp Auto SS pH Arterial 7.387 Normal 7.350 - 7.450 [facility] Resp Auto SS Sample Site R Radial (11/28/22 6:55 PM) Normal [facility] Resp Auto SS Sample Type Arterial Draw (11/28/22 6:55 PM) Normal [facility] Resp Auto SS HEMATOLOGYOrdered By: SYSTEM SYSTEM [...] [facility] HemeAutoSS Pre-Arrival Noteon Pre-Arrival Note Normal [facility] Troponin 0 Hr.on 11-28-2022 Troponin I.cardiac [Mass/Vol] 21.80 pg/mL Normal 15.90-38.40 [facility] Comment on above: Result Comment: The 95% CI (Confidence Interval) PPV (Positive Predictive Value) for myocardial infarction in females is 38 pg/mL, in males 51 pg/mL. The results should be used in conjunction with clinical conditions of myocardial infarction.(Access High Sensitivity Troponin I Instructions For Use, Claudia Luis, December 2017) Performed By: #### 1 2120194, 2746198, 2569781, 3100026, 81562493 ####[facility] [address] [place] [address] Troponin 3 Hr.on 11-28-2022 Troponin I.cardiac [Mass/Vol] 26.90 pg/mL Normal 15.90-38.40 [facility] Comment on above: Result Comment: The 95% CI (Confidence Interval) PPV (Positive Predictive Value) for myocardial infarction in females is 38 pg/mL, in males 51 pg/mL. The results should be used in conjunction with clinical conditions of myocardial infarction.(Access High Sensitivity Troponin I Instructions For Use, Claudia Luis, December 2017) Performed By: #### 1 2455311 ####[address] [place] [address] UA With Cult Reflexon 2022 Crystals LM Ql (Urine sed) Present Normal [facility] Comment on above: Performed By: #### 1 9557133 ####[place] [address] Epithelial cells.squamous LM.HPF (Urine sed) [#/Area] 0-2 Normal 0-2 [facility] Comment on above: Performed By: #### 1 0527885 ####[place] [address] [place].plasma/[place].R BC (Bld) [Mass ratio] 0-3 Normal 0-3 [facility] Comment on above: Performed By: #### 1 2296891 ####[address] [address] Mucus Ql (Urine sed) TRACE Normal [facility] Comment on above: Performed By: #### 1 7853095 ####[address] [address] WBC LM.HPF (Urine sed) [#/Area] 0-5 Normal 0-5 [facility] Comment on above: Performed By: #### 1 4333581 ####[address] [address] Bilirubin Ql (U) Negative Normal Negative [facility] Comment on above: Performed By: #### 1 7586477 ####[address] [address] Clarity (U) CLEAR Normal Clear [facility] Comment on above: Performed By: #### 1 5818733 ####[facility] [address] [place] [address] Color (U) YELLOW Normal Yellow [facility] Comment on above: Performed By: #### 1 0706627 ####[facility] [address] [place] [address] Glucose Test strip (U) [Mass/Vol] Negative Normal Negative [facility] Comment on above: Performed By: #### 1 7195241 ####[facility] [address] [place] [address] Hemoglobin Ql (U) Negative Normal Negative [facility] Comment on above: Performed By: #### 1 0181569 ####[facility] [address] [place] [address] Ketones (U) [Mass/Vol] Negative Normal Negative [facility] Comment on above: Performed By: #### 1 2667112 ####[facility] [address] [place] [address] Nitrite Ql (U) Negative Normal Negative [facility] Comment on above: Performed By: #### 1 0699455 ####[facility] [address] [facility] [place] [address] pH (U) 6.0 [pH] Invalid Interpretation Code 5.0-9.0 [facility] Comment on above: Performed By: #### 1 0856817 ####[facility] [address] [place] [address] Protein (U) [Mass/Vol] 2+ Abnormal Negative [facility] Comment on above: Performed By: #### 1 0897640 ####[place] [facility] [place] [address] Specific gravity (U) [Rel density] 1.025 Invalid Interpretation Code 1.005-1.030 [facility] Comment on above: Performed By: #### 1 4320601 ####[address] [place] [place] [address] Type of Urine collection method Clean Catch Normal [facility] Comment on above: Performed By: #### 1 4047958 ####[facility] [address] [place] [address] Urobilinogen Qn (U) 0.2 {Lei'U}/dL Normal 0.0-1.0 [facility] Comment on above: Performed By: #### 1 9206037 ####[facility] [address] [place] [address] WBC Auto Ql (U) Negative Normal Negative [facility] Comment on above: Performed By: #### 1 2282189 ####[facility] [address] [place] [address] URINALYSISOrdered By: Emily Suero on 11-28-2022 Bilirubin [...] PM) Normal Negative [facility] UA Auto SS [place].plasma/[place].R BC (Bld) [Mass ratio] 0-3 /HPF Normal [...] FT UA Auto SS Urobilinogen Qn (U) 0.1199473 {Lei'U}/dL Normal 0.0 - 1.0 EU/dL FT UA Auto SS WBC Auto Ql (U) Negative (11/28/22 5:55 PM) Normal Negative [facility] UA Auto SS WBC LM.HPF (Urine sed) [#/Area] 0-5 /HPF Normal 0-5/HPF FT UA Auto SS XR Chest Single Viewon 11-28 XR Chest Single View Normal [facility] eGFRon 11-28-2022 GFR/1.73 sq M.predicted among non-blacks MDRD (S/P/Bld) [Vol rate/Area] 77 mL/min/1.73 m2 Normal >=59 [facility] Comment on above: Order Comment: Order added by Discern Expert. Result Comment: Polishing Machine Operator Helper earnest kidney disease could be indicated at eGFR's of less than 60 mL/min/1.73m2. Kidney failure is indicated at less than 15 mL/min/1.73m2. Performed By: #### 1 2751207, 1962887, 8290574, 6340653, 57456925 ####[facility] [address] [place] [address] CHEMISTRYOrdered By: SYSTEM SYSTEM on 11-26-2022 Albumin [...] 2.07 m[IU]/L Normal 0.34 - 5.60 mcIU/mL [facility] Remisol Urea nitrogen [Mass/Vol] 18 mg/dL Normal 5 - 21 mg/dL [facility] Remisol Urea nitrogen/Creatinine [Mass ratio] 20 mg/mg Normal 10 - 20 [facility] Remisol CMPon 11-26-2022 Albumin [Mass/Vol] 3.7 g/dL Normal 3.3-5.0 [facility] Comment on above: Performed By: #### 2 387710, 8682781, 12143604, 7803092 ####[facility] [address] [place] [address] Albumin/Globulin (S) [Mass conc ratio] 1.2 Normal 1.1-2.2 [facility] Comment on above: Performed By: #### 2 866334, 2534320, 55482427, 6285460 ####[facility] [address] [place] [address] ALP [Catalytic activity/Vol] 38 Int._Unit/L Normal 21-98 [facility] Comment on above: Performed By: #### 2 251368, 3486016, 38555455, 9913759 ####[facility] [address] [place] [address] ALT No additional P-5'-P [Catalytic activity/Vol] 11 Int._Unit/L Normal 6-46 [facility] Comment on above: Performed By: #### 2 251278, 1513649, 99916064, 4781163 ####[facility] [address] [place] [address] Anion gap [Moles/Vol] 14 mmol/L Normal 6-16 [facility] Comment on above: Performed By: #### 2 846546, 4412099, 15326174, 4114416 ####[facility] [address] [place] [address] AST [Catalytic activity/Vol] 15 Int._Unit/L Normal 5-43 [facility] Comment on above: Performed By: #### 2 687690, 1641645, 70954737, 1220353 ####[facility] [address] [place] [address] Bilirubin [Mass/Vol] 1.0 mg/dL Normal 0.0-1.[address] [facility] Comment on above: Performed By: #### 2 596174, 6620927, 99599350, 3048643 ####[facility] [address] [place] [address] Calcium [Mass/Vol] 9.2 mg/dL Normal 8.9-11.1 [facility] Comment on above: Performed By: #### 2 773502, 2108468, 91763960, 3826832 ####[facility] [address] [place] [address] Chloride [Moles/Vol] 107 mmol/L Normal 101-[address] [facility] Comment on above: Performed By: #### 2 725956, 6001832, 33074104, 0248351 ####[facility] [address] [place] [address] CO2 [Moles/Vol] 28 mmol/L Normal 21-31 [facility] Comment on above: Performed By: #### 2 864544, 4551524, 72551970, 9444317 ####[facility] [address] [place] [address] Creatinine [Mass/Vol] 0.9 mg/dL Normal 0.5-1.3 [facility] Comment on above: Performed By: #### 2 434861, 0662479, 49995120, 2696544 ####[facility] [address] [place] [address] Globulin (S) [Mass/Vol] 3.2 g/dL Normal 1.4-4.0 [facility] Comment on above: Performed By: #### 2 612525, 2870892, 67196588, 5996033 ####[facility] [address] [place] [address] Glucose [Mass/Vol] 95 mg/dL Normal 55-199 [facility] Comment on above: Result Comment: If t his glucose result represents a fasting glucose, interpretation should refer to the following reference range: 55-99 mg/dL Performed By: #### 2 707743, 5053998, 59104049, 0713713 ####[facility] [address] [place] [address] Potassium [Moles/Vol] 4.2 mmol/L Normal 3.5-5.3 [facility] Comment on above: Performed By: #### 2 669486, 9709988, 25152395, 4043486 ####[facility] [address] [place] [address] Protein [Mass/Vol] 6.9 g/dL Normal 6.0-7.8 [facility] Comment on above: Performed By: #### 2 511485, 3662999, 94998859, 2573599 ####[facility] [address] [place] [address] Sodium [Moles/Vol] 145 mmol/L Normal 135-145 [facility] Comment on above: Performed By: #### 2 456653, 9128959, 97343022, 4845710 ####[facility] [address] [place] [address] Urea nitrogen [Mass/Vol] 18 mg/dL Normal 5-21 [facility] Comment on above: Performed By: #### 2 025625, 6495446, 77945039, 3680726 ####[facility] [address] [place] [address] Urea nitrogen/Creatinine [Mass ratio] 20 No Units Normal 10-20 [facility] Comment on above: Performed By: #### 2 180729, 7017765, 06223457, 9198588 ####[facility] [address] [place] [address] Consent for Treatmenton 07-0 Consent for Treatment [id number] [facility] [id number]:127 Normal [facility] Lipid Panelon 11-26-2022 Cholesterol [Mass/Vol] 112 mg/dL Low 120-200 [facility] Comment on above: Performed By: #### 2 918759, 6341507, 89162545, 9042025 ####[facility] [address] [place] [address] Cholesterol in HDL [Mass/Vol] 49 mg/dL Invalid Interpretation Code [facility] Comment on above: Result Comment: HDL > or equal to 60 mg/dL: Low cardiovascular riskHDL < 40 mg/dL : High cardiovascular risk Performed By: #### 2 613362, 1066207, 09874603, 4833503 ####[facility] [address] [place] [address] Cholesterol in LDL [Mass/Vol] 42 mg/dL Normal <=129 [facility] Comment on above: Performed By: #### 2 436882, 2311133, 87098455, 4882644 ####[facility] [address] [place] [address] Cholesterol in VLDL [Mass/Vol] 14 mg/dL Normal 7-40 [facility] Comment on above: Performed By: #### 2 308493, 7002693, 25587088, 9476569 ####[facility] [address] [place] [address] Triglyceride [Mass/Vol] 69 mg/dL Normal <=149 F [facility] Comment on above: Performed By: #### 2 460544, 7368839, 56605830, 3537124 ####[facility] [address] [place] [address] Physician Orderon 11-26-2022 Physician Order [id number] 1.00CD:127 Normal [facility] TSHon 11-26-2022 TSH Qn 2.07 m[IU]/L Normal 0.34-5.60 [facility] Comment on above: Performed By: #### 2 984944, 4997781, [id number], [id number] ####[facility] [address] [place] [address] eGFRon 11-26-2022 GFR/1.73 sq M.predicted among non-blacks MDRD (S/P/Bld) [Vol rate/Area] 87 mL/min/1.73 m2 Normal >=59 [facility] Comment on above: Order Comment: Order added by Discern Expert. Result Comment: Polishing Machine Operator Helper earnest kidney disease could be indicated at eGFR's of less than 60 mL/min/1.73m2. Kidney failure is indicated at less than 15 mL/min/1.73m2. Performed By: #### 2 948082, 9455103, 95925582, 3400890 ####[facility] [address] [place] [address] Discharge Instructionson Discharge Instructions [id number]#1 .00CD:127 Normal [facility] Transfer Documentson 023 Transfer Documents [id number]#1 .00CD:127 Normal [facility] Capillary Glucose POCon Glucose [Mass/Vol] 166 mg/dL High 55-99 [facility] Comment on above: Result Comment: Gareth guerrero RN/ Performed By: #### 2 [id number] ####[facility] [address] [place] [address] Glucose [Mass/Vol] 119 mg/dL High 55-99 [facility] Comment on above: Result Comment: Repe at Test Performed By: #### 2 [id number] ####[facility] [address] [place] [address] Discharge Note-Nursingon Discharge Note-Nursing Normal [facility] AyeI9dwp 09-28-2022 HbA1c (Bld) [Mass fraction] 6.4 % High <=5.9 [facility] Comment on above: Order Comment: IF UN ABLE TO ADD TO ED LABS Performed By: #### 2 [id number], [id number] ####[facility] [address] [place] [address] Inpatient Clinical Summaryon 09-28-2022 Inpatient Clinical Summary Normal [facility] Inpatient Patient Summaryon 09-28-2022 Inpatient Patient Summary Normal [facility] Inpatient Patient Summary Normal [facility] Interdisciplinary Note - Santosh e Manageron 09-28-2022 Interdisciplinary Note - Human Resources Recruiter Normal [facility] Comment on above: Result Comment: Elec tronically Signed By: Jose HAYDEN, Norma\.br\Date and Time Signed: 09/28/22 15:54 EDT Monitor Recordon 09-28-2022 Monitor Record [id number]# 1.00CD:127 Normal [facility] Capillary Glucose POCon Glucose [Mass/Vol] 192 mg/dL High 55-99 [facility] Comment on above: Result Comment: Gareth GARDINER Performed By: #### 2 [id number] ####[facility] [address] [place] [address] Glucose [Mass/Vol] 130 mg/dL High 55-99 [facility] Comment on above: Result Comment: No C overage Given Performed By: #### 2 [id number] ####[facility] [address] [place] [address] Glucose [Mass/Vol] 202 mg/dL High 55-99 [facility] Comment on above: Result Comment: Gareth GARDINER Performed By: #### 2 [id number] ####[facility] [address] [place] [address] Glucose [Mass/Vol] 89 mg/dL Normal 55-99 [facility] Comment on above: Result Comment: Gareth GARDINER Performed By: #### 2 [id number] ####[facility] [address] [place] [address] Insurance Correspondence Off iceon 09-27-2022 Insurance Correspondence Office [id number]# 1.00CD:127 Normal [facility] Interdisciplinary Note - Santosh e Manageron 09-27-2022 Interdisciplinary Note - Human Resources Recruiter Normal [facility] Comment on above: Result Comment: Elec tronically Signed By: Natalie Grant\Date and Time Signed: 09/27/22 14:56 EDT Interdisciplinary Note - PTo n 09-27-2022 Interdisciplinary Note - PT Pt is safe and indep w/bed mobility, transfers and gait w/FWW. Pt uses FWW at home; he is at his baseline. NO PT needs at this time. No needs anticipated upon d/c home. AM-PAC [facility] Lyteson 09-27-2022 Anion gap [Moles/Vol] 9 mmol/L Normal 6-16 [facility] Comment on above: Performed By: #### 2 794893, [id number] ####[facility] [address] [place] [address] Chloride [Moles/Vol] 105 mmol/L Normal 101-[address] [facility] Comment on above: Performed By: #### 2 931642, [id number] ####[facility] [address] [facility] [place] [address] CO2 [Moles/Vol] 26 mmol/L Normal 21-31 [facility] Comment on above: Performed By: #### 2 105266, [id number] ####[facility] [address] [place] [address] Potassium [Moles/Vol] 4.2 mmol/L Normal 3.5-5.3 [facility] Comment on above: Performed By: #### 2 176844, [id number] ####[facility] [address] [place] [address] Sodium [Moles/Vol] 136 mmol/L Normal 135-145 [facility] Comment on above: Performed By: #### 2 967075, [id number] ####[facility] [address] [place] [address] Monitor Recordon 09-27-2022 Monitor Record [id number]# 1.00CD:127 Normal [facility] Monitor Record [id number]# 1.00CD:127 Normal [facility] Progress Note-Nurseon 2022 Progress Note-Nurse Normal Fishe r [facility] Progress Note-Physicianon Progress Note-Physician Normal F [facility] Comment on above: Result Comment: Elec tronically Signed By: Adeline COLEMAN\.br\Date and Time Signed: 09/27/22 15:34 EDT\.br\Electronically Co-Signed By: Adeline COLEMAN\.br\Date and Time Co-Signed: 09/27/22 15:37 EDT\.br\Electronically Co-Signed By: Ganesh Minaya MD\.br\Date and Time Co-Signed: 09/27/22 18:58 EDT Auto Diffon 09-26-2022 Basophils/100 WBC (Bld) 0.5 % Normal 0.0-2.0 [facility] Comment on above: Order Comment: Order Added by Discern Expert. Performed By: #### 1 8708531, 8927078, 1008539, 0908426 ####[facility] [address] [place] [address] Basophils/Leukocytes Auto (Bld) [Pure # fraction] 0.0 E9/L Normal 0.0-0.2 [facility] Comment on above: Order Comment: Order Added by Discern Expert. Performed By: #### 1 5715140, 1711512, 2429027, 9102076 ####[facility] [address] [place] [address] Eosinophils/100 WBC (Bld) 3.3 % Normal 0.0-8.0 [facility] Comment on above: Order Comment: Order Added by Discern Expert. Performed By: #### 1 2959788, 5749971, 9152457, 8307941 ####[address] [place] [place] [address] Eosinophils/Leukocytes Auto (Bld) [Pure # fraction] 0.3 E9/L Normal 0.0-0.5 [facility] Comment on above: Order Comment: Order Added by Discern Expert. Performed By: #### 1 0642921, 9393911, 8364073, 7428056 ####[facility] [address] [place] [address] Lymphocytes/100 WBC (Bld) 9.5 % Low 14.0-50.0 [facility] Comment on above: Order Comment: Order Added by Discern Expert. Performed By: #### 1 7693713, 6756681, 8237847, 0770733 ####[address] [place] [address] Lymphocytes/Leukocytes Auto (Bld) [Pure # fraction] 0.8 E9/L Low 1.0-4.0 [facility] Comment on above: Order Comment: Order Added by Discern Expert. Performed By: #### 1 5101110, 2906750, 3871444, 1121080 ####[address] [place] [address] Monocytes/100 WBC (Bld) 7.2 % Normal 4.0-14.0 [facility] Comment on above: Order Comment: Order Added by Discern Expert. Performed By: #### 1 1199855, 4226264, 2985929, 5825977 ####[address] [place] [address] Monocytes/Leukocytes Auto (Bld) [Pure # fraction] 0.6 E9/L Normal 0.2-1.0 [facility] Comment on above: Order Comment: Order Added by Discern Expert. Performed By: #### 1 0774399, 1508478, 7162114, 3025281 ####[address] [place] [address] Neutrophils/100 WBC (Bld) 79.5 % High 36.0-75.0 [facility] Comment on above: Order Comment: Order Added by Discern Expert. Performed By: #### 1 8541866, 7103750, 8345656, 6866541 ####[facility] [address] [place] [address] Neutrophils/Leukocytes Auto (Bld) [Pure # fraction] 6.7 E9/L Normal 2.0-7.5 [facility] Comment on above: Order Comment: Order Added by Discern Expert. Performed By: #### 1 6563351, 6962161, 2683944, 1046439 ####[facility] [address] [place] [address] BMPon 09-26-2022 Creatinine [Mass/Vol] 1.0 mg/dL Normal 0.5-1.3 [facility] Comment on above: Performed By: #### 1 4970524, 7934692, 2892028, 3440438 ####[facility] [address] [place] [address] Urea nitrogen [Mass/Vol] 25 mg/dL High 5-21 [facility] Comment on above: Performed By: #### 1 5547167, 5441345, 3016385, 1493398 ####[facility] [address] [place] [address] Urea nitrogen/Creatinine [Mass ratio] 25 No Units High 10-20 [facility] Comment on above: Performed By: #### 1 9482950, 8213699, 1372193, 4419103 ####[facility] [address] [place] [address] Anion gap [Moles/Vol] 10 mmol/L Normal 6-16 [facility] Comment on above: Performed By: #### 1 8946759, 3070111, 0750233, 6430392 ####[facility] [address] [place] [address] Calcium [Mass/Vol] 8.9 mg/dL Normal 8.9-11.1 [facility] Comment on above: Performed By: #### 1 0196193, 8203827, 6724218, 6655791 ####[facility] [address] [place] [address] Chloride [Moles/Vol] 101 mmol/L Normal 101-[address] [facility] Comment on above: Performed By: #### 1 7630117, 8216148, 2773213, 6807817 ####[facility] [address] [place] [address] CO2 [Moles/Vol] 26 mmol/L Normal 21-31 [facility] Comment on above: Performed By: #### 1 9995223, 5139359, 9098873, 8069430 ####[facility] [address] [place] [address] Glucose [Mass/Vol] 112 mg/dL Normal 55-199 [facility] Comment on above: Result Comment: If t his glucose result represents a fasting glucose, interpretation should refer to the following reference range: 55-99 mg/dL Performed By: #### 1 5984426, 4419117, 6002538, 2817938 ####[facility] [address] [place] [address] Potassium [Moles/Vol] 4.1 mmol/L Normal 3.5-5.3 [facility] Comment on above: Performed By: #### 1 6309852, 9360390, 6032441, 5828251 ####[facility] [address] [place] [address] Sodium [Moles/Vol] 133 mmol/L Low 135-145 [facility] Comment on above: Performed By: #### 1 6302108, 2097664, 5633121, 1401875 ####[facility] [address] [place] [address] CBC w/ Auto Diffon 3 Erythrocyte distribution width (RBC) [Ratio] 14.6 % High 10.9-14.2 [facility] Comment on above: Performed By: #### 1 2610524, 0811792, 7084844, 4200582 ####[facility] [address] [place] [address] Hematocrit (Bld) [Volume fraction] 37.6 % Low 37.7-49.0 [facility] Comment on above: Performed By: #### 1 1463198, 1546841, 2222663, 3488280 ####[facility] [address] [place] [address] Hemoglobin (Bld) [Mass/Vol] 12.5 g/dL Low 13.5-17.5 [facility] Comment on above: Performed By: #### 1 9382065, 2991166, 3590128, 1663147 ####[address] [address] MCH (RBC) [Entitic mass] 28.5 pg Normal 27.0-34.0 [facility] Comment on above: Performed By: #### 1 3834788, 1289335, 4280861, 0833853 ####[address] [address] MCHC (RBC) [Mass/Vol] 33.2 g/dL Normal 31.4-36.0 [facility] Comment on above: Performed By: #### 1 9945218, 1458705, 6061781, 7499084 ####[address] [address] MCV (RBC) [Entitic vol] 85.8 fL Normal 80.0-100.0 F [facility] Comment on above: Performed By: #### 1 5081587, 5656666, 8090502, 9311193 ####[address] [address] Platelet mean volume (Bld) [Entitic vol] 10.3 fL Normal 6.4-10.8 [facility] Comment on above: Performed By: #### 1 6178691, 5416120, 6985254, 0880680 ####[address] [address] Platelets (Bld) [#/Vol] 164.0 E9/L Normal 150.0-500.0 [facility] Comment on above: Performed By: #### 1 5078217, 8762281, 5897829, 0191511 ####[address] [address] RBC (Bld) [#/Vol] 4.4 E12/L Normal 4.3-5.9 [facility] Comment on above: Performed By: #### 1 0100262, 1361729, 2336187, 5078090 ####[facility] [address] [place] [address] WBC corrected for nucl RBC Auto (Bld) [#/Vol] 8.4 E9/L Normal 4.0-11.0 [facility] Comment on above: Performed By: #### 1 8751509, 5005425, 0204075, 3363715 ####[facility] [address] [place] [address] Capillary Glucose POCon Glucose [Mass/Vol] 161 mg/dL High 55-99 [facility] Comment on above: Result Comment: Gareth guerrero RN/MD Performed By: #### 2 77888716 ####[facility] [address] [place] [address] Consent for Treatmenton Consent for Treatment [id number]#1 .00CD:127 Normal [facility] ED Clinical Summaryon 2022 ED Clinical Summary Normal [facility] ED Note-Physicianon 09-27-19 ED Note-Physician Normal [facility] Comment on above: Result Comment: Elec tronically Signed By: Shane Pan DO\.br\Date and Time Signed: 09/26/22 16:06 EDT ED Patient Education Noteon 09-26-2022 ED Patient Education Note Normal [facility] ED Patient Summaryon 023 ED Patient Summary Normal [facility] EMS Documentationon 09-27-19 EMS Documentation Normal [facility] EMS Documentation Normal [facility] Pre-Arrival Noteon Pre-Arrival Note Normal [facility] Progress Noteson 09-26-2022 Nutrition Worker Authentication Interface Message Text EMERGENCY TRIAGE, TREAT AND TRANSPORT (ET3) DOCUMENTATION OF TELEHEALTH VISIT Date / Time: 09/26/2022929 Name: Clyde Humphrey : 1945 SSN: [id number] EMS Agency: [facility] [x] Verbal consent obtained [...] Completed by: Coby Lugo MD Normal [employer] UA With Cult Reflexon 2022 Bilirubin Ql (U) Negative Normal Negative [facility] Comment on above: Order Comment: can s traight cath if needed. Performed By: #### 1 5131416 ####[facility] [address] [place] [address] Clarity (U) CLEAR Normal Clear [facility] Comment on above: Order Comment: can s traight cath if needed. Performed By: #### 1 3867120 ####[facility] [address] [place] [address] Color (U) YELLOW Normal Yellow [facility] Comment on above: Order Comment: can s traight cath if needed. Performed By: #### 1 1150818 ####[facility] [address] [place] [address] Epithelial cells.squamous LM.HPF (Urine sed) [#/Area] 0-2 Normal 0-2 [facility] Comment on above: Order Comment: can s traight cath if needed. Performed By: #### 1 5413052 ####[facility] [address] [place] [address] Glucose Test strip (U) [Mass/Vol] Negative Normal Negative [facility] Comment on above: Order Comment: can s traight cath if needed. Performed By: #### 1 6216825 ####[facility] [address] [place] [address] Hemoglobin Ql (U) Negative Normal Negative [facility] Comment on above: Order Comment: can s traight cath if needed. Performed By: #### 1 3465690 ####[facility] [address] [place] [address] Ketones (U) [Mass/Vol] Negative Normal Negative [facility] Comment on above: Order Comment: can s traight cath if needed. Performed By: #### 1 4050015 ####[facility] [address] [place] [address] [place].plasma/[place].R BC (Bld) [Mass ratio] 0-3 Normal 0-3 [facility] Comment on above: Order Comment: can s traight cath if needed. Performed By: #### 1 4867168 ####[facility] [address] [place] [address] Nitrite Ql (U) Negative Normal Negative [facility] Comment on above: Order Comment: can s traight cath if needed. Performed By: #### 1 6528148 ####[facility] [address] [place] [address] pH (U) 5.5 [pH] Invalid Interpretation Code 5.0-9.0 [facility] Comment on above: Order Comment: can s traight cath if needed. Performed By: #### 1 0783857 ####[facility] [address] [place] [address] Protein (U) [Mass/Vol] Negative Normal Negative [facility] Comment on above: Order Comment: can s traight cath if needed. Performed By: #### 1 5966442 ####[facility] [address] [place] [address] Specific gravity (U) [Rel density] 1.025 Invalid Interpretation Code 1.005-1.030 [facility] Comment on above: Order Comment: can s traight cath if needed. Performed By: #### 1 2051174 ####[address] [address] Type of Urine collection method Clean Catch Normal [facility] Comment on above: Order Comment: can s traight cath if needed. Performed By: #### 1 6416014 ####[place] [address] Urobilinogen Qn (U) 1.0 {Lei'U}/dL Normal 0.0-1.0 [facility] Comment on above: Order Comment: can s traight cath if needed. Performed By: #### 1 2384965 ####[facility] [address] [place], [place] [address] WBC Auto Ql (U) Negative Normal Negative [facility] Comment on above: Order Comment: can s traight cath if needed. Performed By: #### 1 2899685 ####[place] [address] WBC LM.HPF (Urine sed) [#/Area] 0-5 Normal 0-5 [facility] Comment on above: Order Comment: can s traight cath if needed. Performed By: #### 1 5445254 ####[address] [address] XR Chest Single Viewon 09-26 XR Chest Single View Normal [facility] eGFRon 09-26-2022 GFR/1.73 sq M.predicted among non-blacks MDRD (S/P/Bld) [Vol rate/Area] 77 mL/min/1.73 m2 Normal >=59 [facility] Comment on above: Order Comment: Order added by Discern Expert. Result Comment: Polishing Machine Operator Helper earnest kidney disease could be indicated at eGFR's of less than 60 mL/min/1.73m2. Kidney failure is indicated at less than 15 mL/min/1.73m2. Performed By: #### 1 4310599, 7751585, 4590204, 8954189 ####[facility] [address] [place] [address] Progress Noteson 09-07-2022 Nutrition Worker Authentication Interface Message Text EMERGENCY TRIAGE, TREAT AND TRANSPORT (ET3) DOCUMENTATION OF TELEHEALTH VISIT Date / Time: 09/06/20222146 Name: Clyde Humphrey : 1945 SSN: [id number] EMS Agency: [facility] [x] Verbal consent obtained [...] Completed by: Marcelino Echavarria MD Normal [employer] Q - CULTURE,URINE,ROUTINEon 06-23-2021 CULTURE, URINE, ROUTINE SEE NOTE Normal N [facility] Change Roof Bolter Comment on above: Order Comment: [facility] performed at: [email or web address], [address] [facility], [address] [place] [address], [id number], Petroleum Refinery Operator: Archie Sinha MD [facility] Collection Date/Time: [id number] [facility] Results Received Date/Time: [id number] [facility] Reported Date/Time: Result Comment: CULT URE, URINE, ROUTINE Micro Number: [id number] Test Status: Final Specimen Source: Urine Specimen Quality: Adequate Result: Mixed genital alvin isolated. These superficial bacteria are not indicative of a urinary tract infection. No further organism identification is warranted on this specimen. If clinically indicated, recollect clean-catch, mid-stream urine and transfer immediately to Urine Culture Transport Tube. 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 No further testing will be performed. If clinically indicated, recollection using a method to minimize contamination, with prompt transfer to Urine Culture Transport Tube, is recommended. Performed By: #### 6 304R #### [facility] Default [address] [place] [address] Vital Signs Date Time Vital Sign Value Performing Clinician Facility 01-24-2023 10:00-0400 Hourly Rounding [facility]o [facility] 01-24-2023 10:00-0400 Promise to Return Mbanefo [facility] 01-24-2023 09:00-0400 Hourly Rounding Mbanefo [facility] 01-24-2023 09:00-0400 Promise to Return Mbanefo [facility] 01-24-2023 08:29-0400 Diastolic blood pressure 73 mm[Hg] [facility] 01-24-2023 08:29-0400 Systolic blood pressure 157 mm[Hg] [facility] 01-24-2023 08:27-0400 Blood Pressure Location [facility]efo [facility] 01-24-2023 08:27-0400 Body temperature 97.7 [degF] [facility] 01-24-2023 08:27-0400 Diastolic blood pressure 73 mm[Hg] [facility] 01-24-2023 08:27-0400 Heart rate 82 /min [facility] 01-24-2023 08:27-0400 Respiratory rate 16 /min [facility] 01-24-2023 08:27-0400 Systolic blood pressure 157 mm[Hg] [facility] 01-24-2023 08:00-0400 Hourly Rounding Mbanefo [facility] 01-24-2023 08:00-0400 Promise to Return Mbanefo [facility] 01-24-2023 00:05-0400 Blood Pressure Location Mbanefo [facility] 01-24-2023 00:05-0400 Body temperature 97.7 [degF] Mbanefo [facility] 01-24-2023 00:05-0400 Diastolic blood pressure 76 mm[Hg] Mbanefo [facility] 01-24-2023 00:05-0400 Heart rate 83 /min Mbanefo [facility] 01-24-2023 00:05-0400 Mean blood pressure 99 mm[Hg] Mbanefo [facility] 01-24-2023 00:05-0400 SaO2% (BldA) [Mass fraction] 97 % Mbanefo [facility] 01-24-2023 00:05-0400 Systolic blood pressure 144 mm[Hg] Mbanefo [facility] 01-23-2023 19:36-0400 Heart rate 81 /min Mbanefo [facility] 01-23-2023 19:36-0400 SaO2% (BldA) [Mass fraction] 96 % Mbanefo [facility] 01-23-2023 19:36-0400 Body temperature 97.34 [degF] Mbanefo [facility] 01-23-2023 19:34-0400 Mean blood pressure 83 mm[Hg] Mbanefo [facility] 01-23-2023 13:00-0400 Body temperature 98.06 [degF] Mbanefo [facility] 01-23-2023 06:55-0400 Blood Pressure Location Mbanefo [facility] 01-23-2023 06:55-0400 Mean blood pressure 89 mm[Hg] Mbanefo [facility] 01-23-2023 06:55-0400 Respiratory rate 16 /min Mbanefo [facility] 01-23-2023 06:55-0400 SaO2% (BldA) [Mass fraction] 93 % Mbanefo [facility] 01-22-2023 23:00-0400 Body temperature 97.88 [degF] Mbanefo [facility] 01-22-2023 23:00-0400 Mean blood pressure 82 mm[Hg] Mbanefo [facility] 01-22-2023 23:00-0400 Respiratory rate 18 /min Mbanefo [facility] 01-22-2023 18:37-0400 Body temperature 97.52 [degF] Mbanefo [facility] 01-22-2023 18:36-0400 Mean blood pressure 81 mm[Hg] Mbanefo [facility] 01-22-2023 16:09-0400 Mean blood pressure 81 mm[Hg] Mbanefo [facility] 01-22-2023 16:07-0400 Body temperature 97.52 [degF] Mbanefo [facility] 01-22-2023 04:50-0400 Heart rate 77 /min Mbanefo [facility] 01-21-2023 21:09-0400 Heart rate 85 /min Mbanefo [facility] 01-21-2023 15:11-0400 Heart rate 78 /min Mbanefo [facility] 12-20-2022 09:37-0400 Hourly Rounding Maycol CAGLE [facility] 12-20-2022 09:37-0400 Promise to Return Maycolyasmine GEELIN [facility] 12-20-2022 09:06-0400 Heart rate 65 /min Maycolyasmine ARRIOLASLIN [facility] 12-20-2022 09:06-0400 Respiratory rate 20 /min Maycol ARRIOLASLIN [facility] 12-20-2022 09:06-0400 SaO2% (BldA) [Mass fraction] 92 % Maycolyasmine ARRIOLASLIN [facility] 12-20-2022 08:56-0400 Heart rate 61 /min Maycol TSERING [facility] 12-20-2022 08:56-0400 Respiratory rate 20 /min Maycol TSERING [facility] 12-20-2022 08:56-0400 SaO2% (BldA) [Mass fraction] 92 % Maycol TSERING [facility] 12-20-2022 08:51-0400 Hourly Rounding Maycol TSERING [facility] 12-20-2022 08:51-0400 Promise to Return Maycol TSERING [facility] 12-20-2022 08:50-0400 Hourly Rounding Maycol TSERING [facility] 12-20-2022 08:31-0400 Promise to Return Maycol TSERING [facility] 12-20-2022 07:29-0400 Heart rate 60 /min Maycol TSERING [facility] 12-20-2022 07:29-0400 SaO2% (BldA) [Mass fraction] 93 % Maycol TSERING [facility] 12-20-2022 07:28-0400 Body temperature 98.06 [degF] Maycol TSERING [facility] 12-20-2022 07:28-0400 Diastolic blood pressure 69 mm[Hg] Maycol TSERING [facility] 12-20-2022 07:28-0400 Mean blood pressure 94 mm[Hg] Maycol TSERING [facility] 07-30-2023 07:28-0400 Systolic blood pressure 143 mm[Hg] Maycol TSERING [facility] 12-20-2022 03:25-0400 Respiratory rate 16 /min Maycol TSERING [facility] 12-20-2022 00:15-0400 Body temperature 97.7 [degF] Maycol TSERING [facility] 12-20-2022 00:15-0400 Diastolic blood pressure 56 mm[Hg] Maycol TSERING [facility] 12-20-2022 00:15-0400 Systolic blood pressure 135 mm[Hg] Maycol TSERING [facility] 12-19-2022 19:28-0400 Body temperature 98.42 [degF] Maycolyasmine ARRIOLASLIN [facility] 12-19-2022 19:27-0400 Diastolic blood pressure 69 mm[Hg] Maycol TSERING [facility] 12-19-2022 19:27-0400 Mean blood pressure 90 mm[Hg] Maycol TSERING [facility] 12-19-2022 19:27-0400 Systolic blood pressure 134 mm[Hg] Maycol TSERING [facility] 12-19-2022 16:26-0400 gluc 111 mg/dL Maycol TSERING [facility] 12-19-2022 16:06-0400 Mean blood pressure 95 mm[Hg] Maycol TSERING [facility] 12-19-2022 16:00-0400 Body temperature 98.06 [degF] Maycol TSERING [facility] 12-19-2022 11:58-0400 gluc 201 mg/dL Maycol TSERING [facility] 12-19-2022 08:18-0400 gluc 93 mg/dL Maycol TSERING [facility] 12-19-2022 08:00-0400 Body temperature 98.6 [degF] Maycol TSERING [facility] 12-18-2022 05:46-0400 Blood Pressure Location Maycol TESRING [facility] 12-18-2022 05:46-0400 Heart rate 67 /min Maycol TSERING [facility] 12-18-2022 05:00-0400 Body temperature 98.42 [degF] Maycol TSERING [facility] 12-18-2022 05:00-0400 Mean blood pressure 78 mm[Hg] Maycol TSERING [facility] 12-18-2022 05:00-0400 Respiratory rate 20 /min Maycol TSERING [facility] 12-18-2022 04:00-0400 Mean blood pressure 77 mm[Hg] Maycol TSERING [facility] 12-18-2022 04:00-0400 Respiratory rate 21 /min Maycol TSERING [facility] 12-18-2022 03:00-0400 Mean blood pressure 75 mm[Hg] Maycol TSERING [facility] 12-18-2022 03:00-0400 Respiratory rate 22 /min Maycol TSERING [facility] 12-18-2022 00:09-0400 Heart rate 85 /min Maycol TSERING [facility] 12-17-2022 23:54-0400 Heart rate 86 /min Maycol TSERING [facility] 12-02-2022 14:00-0400 SaO2% (BldA) [Mass fraction] 93 % Maycol TSERING [facility] 12-02-2022 13:00-0400 Hourly Rounding Maycol TSERING [facility] 12-02-2022 13:00-0400 Promise to Return Maycol TSERING [facility] 12-02-2022 12:58-0400 Heart rate 85 /min Maycol TSERING [facility] 12-02-2022 12:58-0400 SaO2% (BldA) [Mass fraction] 88 % Maycol TSERING [facility] 12-02-2022 12:58-0400 Body temperature 97.7 [degF] Maycol TSERING [facility] 12-02-2022 12:58-0400 Diastolic blood pressure 75 mm[Hg] Maycol TSERING [facility] 12-02-2022 12:58-0400 Mean blood pressure 102 mm[Hg] Maycol TSERING [facility] 12-02-2022 12:58-0400 Systolic blood pressure 157 mm[Hg] Maycol TSERING [facility] 12-02-2022 12:10-0400 Hourly Rounding Maycol TSERING [facility] 12-02-2022 12:10-0400 Promise to Return Maycol TSERING [facility] 12-02-2022 11:30-0400 Hourly Rounding Maycol TSERING [facility] 12-02-2022 11:30-0400 Promise to Return Maycol TSERING [facility] 12-02-2022 08:00-0400 Blood Pressure Location Maycol TSERING [facility] 12-02-2022 08:00-0400 Diastolic blood pressure 79 mm[Hg] Maycol TSERING [facility] 12-02-2022 08:00-0400 gluc 127 mg/dL Maycol TSERING [facility] 12-02-2022 08:00-0400 Heart rate 76 /min Maycol TSERING [facility] 12-02-2022 08:00-0400 Respiratory rate 20 /min Maycol TSERING [facility] 12-02-2022 08:00-0400 Systolic blood pressure 141 mm[Hg] Maycol TSERING [facility] 12-02-2022 07:46-0400 Heart rate 66 /min Maycol TSERING [facility] 12-02-2022 07:46-0400 Respiratory rate 18 /min Maycol TSERING [facility] 12-02-2022 07:40-0400 Respiratory rate 18 /min Maycol TSERING [facility] 12-01-2022 23:32-0400 Body temperature 97.16 [degF] Maycol TSERING [facility] 12-01-2022 23:32-0400 Diastolic blood pressure 77 mm[Hg] Maycol TSERING [facility] 12-01-2022 23:32-0400 Mean blood pressure 101 mm[Hg] Maycol TSERING [facility] 12-01-2022 23:32-0400 Systolic blood pressure 130 mm[Hg] Maycol TSERING [facility] 12-01-2022 20:01-0400 Body temperature 97.16 [degF] Maycol TSERING [facility] 12-01-2022 20:01-0400 Mean blood pressure 101 mm[Hg] Maycol TSERING [facility] 12-01-2022 12:07-0400 Body temperature 97.52 [degF] Maycol TSERING [facility] 12-01-2022 07:30-0400 Body temperature 96.98 [degF] Maycol TSERING [facility] 12-01-2022 06:00-0400 gluc 110 mg/dL Maycol TSERING [facility] 11-30-2022 23:32-0400 FIO2 30 % Maycol TSERING [facility] 11-30-2022 20:04-0400 Mean blood pressure 98 mm[Hg] Maycol TSERING [facility] 11-30-2022 04:38-0400 Mean blood pressure 91 mm[Hg] Maycol TSERING [facility] 11-29-2022 20:16-0400 FIO2 30 % Maycol TSERING [facility] 11-29-2022 19:00-0400 Blood Pressure Location Maycol TSERING [facility] 11-29-2022 08:10-0400 FIO2 30 % Maycol CAGLE [facility] 11-29-2022 04:08-0400 gluc 107 mg/dL Maycol CAGLE [facility] 11-29-2022 04:08-0400 Mean blood pressure 80 mm[Hg] Maycol CAGLE [facility] 11-29-2022 00:16-0400 Heart rate 48 /min Maycol CAGLE [facility] 11-28-2022 22:55-0400 Respiratory rate 19 /min Maycol CAGLE [facility] 11-28-2022 21:45-0400 Respiratory rate 18 /min Maycol CAGLE [facility] 11-28-2022 20:45-0400 Respiratory rate 22 /min Maycol CAGLE [facility] 11-28-2022 18:55-0400 SaO2% (BldA) [Mass fraction] 95.4 % Maycol CAGLE [facility] Resp Auto SS 11-28-2022 17:13-0400 Heart rate 59 /min Maycol CAGLE [facility] 09-07-2022 01:10-0400 Diastolic blood pressure 53 mm[facility]Hg] [facility] 01:10-0400 Heart rate 70 /min [facility] 09-07-2022 01:10-0400 SaO2% (BldA) [Mass fraction] 96 % [facility] 09-07-2022 01:10-0400 Systolic blood pressure 135 mm[Hg] [facility] Encounters Encounter Date Encounter Type Care Provider Facility Start: 02-01-2023 ambulatory Robin Garcia acility:[facility] Start: 01-21-2023 End: 01-24-2023 Evaluation and management of inpatient New Johnson Facility:[facility] Start: 01-21-2023 End: 01-24-2023 Evaluation and management of inpatient Steve [facility]esJUKWU [facility] Start: 01-15-2023 End: 01-16-2023 ambulatory Donta PLEVNA Facility:[id number] Start: 01-15-2023 End: 01-15-2023 Off-Site [facility] Start: 12-22-2022 End: 12-23-2022 ambulatory [facility] Facility:CD:[id number] Start: 12-22-2022 End: 12-22-2022 Off-Site [facility] Start: 12-18-2022 End: 12-20-2022 Evaluation and management of inpatient Maycol CAGLE Facility:[facility] Start: 12-17-2022 End: 12-20-2022 Evaluation and management of inpatient Maycol CAGLE [facility] Start: 12-14-2022 End: 01-16-2023 ambulatory Donta PLEVNA Facility:CD:[id number] Start: 12-14-2022 End: 01-16-2023 In-Between Visit [facility] Start: 12-11-2022 ambulatory [facility] Facilit y:LUISA Rodas Start: 12-03-2022 End: 12-03-2022 Off-Site [facility] Start: 12-03-2022 End: 12-04-2022 ambulatory [facility] Facility:CD:[id number] Start: 12-02-2022 End: 01-16-2023 ambulatory Donta NOONAN Facility:[facility] Start: 11-30-2022 ambulatory Facility:[id number] Start: 11-30-2022 ambulatory Facility:[id number] Start: 11-29-2022 ambulatory Facility:[id number] Start: 11-29-2022 End: 12-02-2022 Evaluation and management of inpatient Maycol CAGLE Facility:[facility] Start: 11-28-2022 End: 12-02-2022 Evaluation and management of inpatient Maycol CAGLE [facility] Start: 11-26-2022 End: 11-27-2022 ambulatory Bienvenido Barroso Facility:[facility] Start: 11-26-2022 End: 11-26-2022 Patient encounter procedure Bienvenido Barroso [facility] Start: 09-26-2022 End: 09-28-2022 ambulatory UNKNOWN PROVIDER Facility:[facility] Start: 09-07-2022 End: 09-08-2022 ambulatory UNKNOWN PROVIDER Facility:[facility] Start: 2022 End: 2022 ambulatory [facility] Emergenc y Triage, Treat and Transport Start: 2022 End: 2022 Emergency department patient visit [facility] Emergency Triage, Treat and Transport [...] (2 - PPSV23 if available, else PCV20) [facility] Start: 1994 Shingles (RZV) Vacci ne (1 of 2) Shingles (RZV) Vaccine (1 of 2) [facility] Start: 1962 Hepatitis C screening Hepatitis C An tibody [facility] Start: 1962 Tetanus + diphtheria + acellular pertussis vaccine (product) Tdap Booster [facility] Immunizations Immunization Date Immunization Notes Care Provider Fa cility 03-12-2022 SARS-CoV-2 (COVID-19 ) mRNAMUL.ORD![id number] Donta SHAISTA [facility] 03-17-2021 Influenza, injectabl e, high-dose seasonal, quadrivalent, 0.7 mL, preservative free (RYY=683) Et3 [facility] 07-15-2020 Pfizer (12+ yrs) SARS-COV-2 (COVID-19) vaccine, mRNA, spike protein, LNP, pres. free, 30 mcg/0.3mL dose (EYQ=281) [facility] 06-26-2020 Pfizer (12+ yrs) SARS-COV-2 (COVID-19) vaccine, mRNA, spike protein, LNP, pres. free, 30 mcg/0.3mL dose (VHI=307) Et3 [facility] 06-23-2019 influenza, high dose seasonal, preservative-free Et3 [facility] 05-14-2017 influenza, high dose seasonal, preservative-free Et3 [facility] 05-14-2017 pneumococcal conjuga te vaccine, 13 valent Et3 [facility] 04-04-2014 influenza, injectabl e, madin cee canine kidney, preservative free Et3 [facility] NEGATED: Highlighted row has not occurred!06-15-2014 pneumococcal polysaccharide vaccine, 23 valent Bienvenido Barroso [facility] Comment on above: Result Note: pt had vaccine last year per Payers Date Payer Category Payer Self-pay 2022 Unknown [id number] 2022 Medicare [facility] [id number] 2022-Present [address] [place] [address] Medicare [id number] 2022 Unknown [id number] 1944 Unknown [id number] [id number] 1944 Unknown [id number] 2.16.840.1.719596.3.579.2.732 1944 Unknown [id number] 2.16.840.1.447000.3.579.2.356 1944 Unknown [id number] 2.16.840.1.360569.3.579.2.356 1944 Unknown [id number] 2.16.840.1.444156.3.579.2.356 1944 Unknown [id number] 2.16.840.1.459159.3.579.2.727 1944 Unknown [id number] 2.16.840.1.070585.3.579.2.727 1944 Unknown [id number] 2.16.840.1.535770.3.579.2.727 1944 Unknown [id number] 2.16.840.1.233251.3.579.2.72 1944 Unknown [id number] 2.16.840.1.356550.3.579.2.72 1944 Unknown [id number] 2.16.840.1.333486.3.579.2.72 1944 Unknown [id number] 2.16.840.1.039578.3.579.2.727 1944 Unknown [id number] 2.16.840.1.325362.3.579.2.727 1944 Unknown [id number] 2..840.1.911945.3.579.2.727 1944 Unknown [id number] 2.16.840.1.462834.3.579.2.727 1944 Unknown [id number] 2.840.1.008176.3.579.272 1944 Unknown [id number] 2.16.840.1.122319.3.579.2.727 Social History Date Type Detail Facility Tobacco smoking status WAIS [facility] Start: 1945 Sex Assigned At [facility] Start: 04-24-2021 Tobacco smoking status Ex-smoker (finding) [facility] Sex Assigned At Male [facility] Functional Status Date Assessment Result Facility 01-21-2023 Functional Status No [facility] 01-21-2023 Functional Status [facility] 12-18-2022 Functional Status N/A [facility] 12-17-2022 Functional Status [facility] 11-29-2022 Functional Status N/A [facility] 11-28-2022 Functional Status [facility] Clinical Notes 09-07-2022 to 01-24-2023 Note Date & Type Note Facility 01-24-2023 Evaluation + Plan note Extrac gi from: Title:Discharge Note Author:New Johnson DO Date:01/24/23 Discharge To, Anticipated II - Half-Way Unit Discharged to - Home independently Transported [...] When Contact Information Dharmesh POTTS, Bienvenido Chavira, [facility] [place] [address]- Additional Instructions: Dementia, Werq-fn-Jdzs Extracted from: Title:APSO Note Author:New Johnson DO e:01/23/23 1. Generalized weakness (R53 .1: Weakness) IV fluids, trend BUN and creatinine PT/OT Currently awaiting pre-CERT for placement 2. Alzheimers disease (G30.9: Alzheimer's disease, unspecified) Continue Seroquel 3. CAD in [place] artery (I25.10: Atherosclerotic heart disease of [place] coronary artery without angina pectoris) Continue aspirin [...] Ordered: Initial Hospital Care/Day Moderate 55 Minutes [id number] Sbsq Hospital Care/Day Straight Fwd 25 Minutes [id number] 2. Alzheimers disease (G30.9: Alzheimer's disease, unspecified) Continue Seroquel 3. CAD in [place] artery (I25.10: Atherosclerotic heart disease of [place] coronary artery without angina pectoris) Continue aspirin [...] (G30.9: Alzheimer's disease, unspecified) 3. CAD in [place] artery (I25.10: Atherosclerotic heart disease of [place] coronary artery without angina pectoris) 4. COPD [...] Ordered: Initial Hospital Care/Day Moderate 55 Minutes [id number] 2. Alzheimers disease (G30.9: Alzheimer's disease, unspecified) Continue Seroquel 3. CAD in [place] artery (I25.10: Atherosclerotic heart disease of [place] coronary artery without angina pectoris) Continue aspirin [...] improving gait and building on physical strength. [facility] CenterComment on above:Result Comment: Electronically Signed By: New Johnson DO.candice\Date and Time Signed: 01/24/23 09:57 [id number] Hospital Discharge instructions Patient Education 01/24/2023 09:54:03 Dementia, Wtsa-bn-Nesb Dementia Dementia is a condition that affects [...] Follow these instructions at home: Medicines Take hlld-omg-ifkvxrx and prescription medicines only as told by [...] find more information Alzheimer's Association: www.alz.org National Lawtell on Aging: www.susie.nih.gov/alzheimers World Health Organization: www.who.int [...] the National Suicide Prevention Lifeline at or 572 in the [place] This is open 24 hours a day. Text the Crisis Text Line at 712794. Summary Dementia often affects memory and thinking. [...] provider. Document Revised: 12/03/2021 Document Reviewed: 09/23/2020 [employer] Patient Education 2022 [employer]. Follow Up Care 01/21/2023 15:06:04 With:Dharmesh POTTS, SHEA Castillo Address: [address] [place] [address]- When: Unknown [facility]Fish[facility] CenterComment on above:Result Comment: Electronically Signed By: New Johnson DO.br\Date and Time Signed: 01/21/23 17:53 [id number] Evaluation + Plan note Extracted from: Title:Discharge Note Author:MICHAEL POTTS, Jamir Gerry e:12/20/22 stable Discharge To, Anticipated II - Half-Way Unit Discharged to - longterm unit SNF Discharge Diet(s): Calorie Controlled- 1800 Calorie Diet (12/20/22 09:46:00) Prescriptions alprazolam 0.5 mg Tab, 0.5 mg= 1 tab(s), Oral, Daily, PRN aspirin 81 mg Oral EC Tab, 81 mg= 1 tab(s), Oral, Daily Augmentin 875 mg oral tablet, 1 tab(s), Oral, q12hr ergocalciferol 50,000 intl units Cap, 56286 International_Unit= 1 cap(s), Oral, q7day furosemide 40 [...] BID With When Contact Information Bienvenido Barroso [employer] [place], [place] [address] Business (1) Additional Instructions: Call for followup [...] ultimately benefit being only slightly on the pulp 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 Coronary artery disease (I25.10: Atherosclerotic heart disease of [place] coronary artery without angina pectoris) Patient had [...] hypertension) Await reconciliation of meds from the [facility] care facility. He did have 1 blood pressure of 106 systolically in the emergency department. With the fall and suspicion of intravascular depletion will transiently hold antihypertensives if it is identified he is actually on antihypertensives at the [facility]. On a prior hospitalization he had been [...] recent hospitalization has been titrated at the [facility] facility. He was recently placed on Xanax, discontinue that at this time. Awaiting verification of meds from the [facility] 15. Encounter for deep vein thrombosis [...] patient's RN it was advised that the [facility] was planning on sending a copy of [...] Tests Pending * Legionella Antigen Urine 12/18/22 [facility]07-30-2023 NoteCRM entered the room to discuss dc planning. PCP, DME and insurance discussed. Patient is alert andinvolved in plan of care. Contact information given and whiteboard updated. Pt will [facility] room 17 today. CRM to follow.Ciro [facility] CenterComment on above:Result Comment: Electronically Signed By: Natalie Grant\.br\Date and Time Signed: 12/20/22 11:52 [id number] Carmenza [facility] CenterComment on above: Result Comment: Electronically Signed By: Jamir MCKINNEY MD\.br\Date and Time Signed: 12/20/22 10:[id number] Hospital Discharge instructions Patient Education 12/20/2022 09:48:09 [...] a long-term care facility, such as a [facility]. Having your kidneys filtered through hemodialysis in [...] hard liquor (44 mL). General instructions Take hrgt-laq-mgkmeof and prescription medicines as told by your [...] are not available, use an alcohol-based hand bowling ball engraver. ?Make sure your health care providers wash [...] and water or with alcohol- based hand bowling ball engraver before and after caring for sick people. [...] bacteria common in health care settings. Take bdbc-ocd-kfdaevk and prescription medicines as told by your [...] provider. Document Revised: 05/31/2022 Document Reviewed: 05/31/2022 [employer] Patient Education 2022 [employer] Follow Up Care 12/17/2022 23:50:19 With:Bienvenido Barroso Address: [address] [place] [id number] [facility] (1) When: Unknown Comments:Call for followup appointment [facility]07[facility]28[facility]2023 [facility]:Result Comment: Electronically Signed By: Maycol CAGLE DO\.br\Date and Time Signed: 12/18/22 06:27 [id number] [facility] HospitalComment on above:Result Comment: Electronically Signed By: Lizeth Cedeno MD\.br\Date and Time Signed: 12/02/22 12:28 [id number] Evaluation + Plan noteExtracted from: Title:Discharge Note Author:Lizeth Cedeno MD ate:12/02/22 Stable Discharge To, Anticipated II - Half-Way Unit Discharged to - Home with family care Transported by, Anticipated - Family Discharge Diet(s): Other: Limit fluids to 1800 ml/day (12/02/22 12:23:00) Prescriptions aspirin 81 mg Oral EC Tab, 81 mg= 1 tab(s), Oral, Daily ergocalciferol 50,000 intl units Cap, 91395 International_Unit= 1 cap(s), Oral, q7day furosemide 40 [...] Bedtime With When Contact Information Joanie Jiménez [facility] [address] [place] [address]- Business (1) Additional Instructions: HFpEF Dave [place] [address] [place] [address]- Business (1) Additional Instructions: Cog impariment, Alzhiemer's Bienvenido Barroso In [address] [place] [address]- Business (1) Additional Instructions: Extracted from: Title:UPDATE [...] of CAD and previous coronary interventions in [place] with no indication of recurrent CAD, would [...] as able, pulm avery. -check echo Ordered: [facility] Hospital Care/Day High 50 Minutes [id number] 2. Acute on chronic diastolic heart failure (I50.33: Acute on chronic diastolic (congestive) heart failure) c/w spironolactone and lasix IV 40mg qd -strict I/Os and daily weight - last echo was done 2014 with EF of 50%. will recheck this visit Ordered: [facility] Hospital Care/Day High 50 Minutes [id number] 3. COPD without exacerbation (J44.9: Chronic obstructive pulmonary disease, unspecified) Ordered: [facility] Care/Day High 50 Minutes 94174 4. Weakness (R53.1: Weakness) -pt/ot Ordered: [facility] Care/Day High 50 Minutes 16784 5. Sinus bradycardia (R00.1: Bradycardia, unspecified) baseline. last EKG similar. -pt had decreased HR overnight so BB was held. -continue to monitor on tele Ordered: [facility] Care/Day High 50 Minutes 36014 6. Coronary artery disease (I25.10: Atherosclerotic heart disease of [place] coronary artery without angina pectoris) -c/w ASA Ordered: [facility] Care/Day High 50 Minutes 85444 7. Obstructive sleep apnea (G47.33: Obstructive sleep apnea (adult) (pediatric)) -CPAP qHS Ordered: [facility] Care/Day High 50 Minutes 31156 8. Pulmonary hypertension (I27.20: Pulmonary hypertension, unspecified) c/w spironolactone 50mg -lasix 40 mg iv qd -strict I/Os daily weights -check echo Ordered: [facility] Care/Day High 50 Minutes 05185 9. Abdominal pain (R10.9: Unspecified abdominal pain) resolved no complaints this morning Ordered: [facility] Care/Day High 50 Minutes 26545 10. Hypertension (I10: Essential (primary) hypertension) c/w spironolactone Ordered: [facility] Care/Day High 50 Minutes 57457 11. Diabetes (E11.9: Type 2 diabetes mellitus without complications) BGT qACHS -c/w glimepiride Ordered: [facility] Care/Day High 50 Minutes 00981 12. Hyperlipidemia (E78.5: Hyperlipidemia, unspecified) -hold statin due to elevated CK Ordered: [facility] Care/Day High 50 Minutes 46846 13. Chronic anemia (D64.9: Anemia, unspecified) monitor Ordered: [facility] Care/Day High 50 Minutes 07815 14. BPH (benign prostatic hyperplasia) (N40.0: Benign prostatic hyperplasia without lower urinary tract symptoms) c/w tamsulosin Ordered: [facility] Care/Day High 50 Minutes 57141 15. Dementia (F03.90: Unspecified dementia, unspecified severity, without behavioral disturbance, psychotic disturbance, mood disturbance, and anxiety) -c/w seroquel 25mg qHS Ordered: [facility] Care/Day High 50 Minutes 27794 16. Encounter for deep vein thrombosis (DVT) prophylaxis (Z29.9: Encounter for prophylactic measures, unspecified) Ordered: [facility] Care/Day High 50 Minutes 61142 17. Elevated CK (R74.8: Abnormal levels of other serum enzymes) -CK 1000 this morning. will monitor and hold statin - will not give fluids due to current diuresis Ordered: [facility] Care/Day High 50 Minutes 84355 COPD with acute exacerbation (J44.1: Chronic obstructive [...] artery disease (I25.10: Atherosclerotic heart disease of [place] coronary artery without angina pectoris) Continue aspirin, [...] Scheduled Provider:Donta NOONAN MD Location:Extended Care Appointment Type:[facility]07-10-2023 NoteOT [facility] six clicks score 15/24 = SNF. Patient requires assist w/ all transfers and self care at this time. Inpatient OT services to follow daily to progress w/ functional skills.[facility]07-09-2023 NotePT Evaluation completed with an [facility] score of 16/24. Pt requires Min A for bed mobility and min/Mod A to stand. Pt was able to take two sidesteps. 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, [employer] With:Bienvenido Barroso Address: [address] [place] [id number] Business (1) When: Unknown [facility]05-20-2023 [facility]:Result Comment: Electronically Signed By: Adeline COLEMAN\.br\Date and Time Signed: 10/10/22 17:53 EDT\.br\Electronically Co- Signed By: Ganesh Minaya MD\.br\Date and Time Co-Signed: 10/10/22 18:51 EDT 09-27-2022 [facility]:Result Comment: Electronically Signed By: Adeline COLEMAN\.br\Date and Time Signed: 09/26/22 21:20 EDT\.br\Electronically Co-Signed By: Rei POTTS, Ganesh Pressley\.br\Date and Time Co-Signed: 09/27/22 08:00 [id number] History of Present illness Narrative* Marcelino Echavarria MD - 09/07/2022 1:12 AM EDT Images from the original note were not included. EMERGENCY TRIAGE, TREAT AND TRANSPORT (ET3) DOCUMENTATION OF TELEHEALTH VISIT Date / Time: 09/06/20222146 Name: Clyde Humphrey : 1945 SSN: [id number] EMS Agency: [facility] [x] Verbal consent obtained [...] note No data available for this section [facility], initial encounter- [facility] No data available for this section [facility] No data available for this section [facility] Summary Purpose Family History No Family [...] and content) DATE CREATED AUTHOR 06/26/2021 [facility] dical Specialist DATE CREATED AUTHOR AUTHOR'S ORGANIZ ATION [facility]2022 [facility] DATE CREATED AUTHOR AUTHOR'S ORGANIZ ATION 12/05/2022 [facility] DATE CREATED AUTHOR AUTHOR'S ORGANIZ ATION 03/26/2023 [facility] DATE CREATED AUTHOR AUTHOR'S ORGANIZ ATION 05/04/[address] [facility] Reason for Visit (unrecogniz ed section and content) Reason Comments Fall Patient Care team informatio n (unrecognized section and content) Personnel Name: Dharmesh POTTS, Bienvenido Chavira Address: Address: [address] [place] [id number]- [place] Name: Andrew Rodriguez Personnel Name: Bienvenido Barroso MD Address: Address: [address] [place] [address] Name: Andrew Rodriguez Patti Personnel Name: Bienvenido Barroso MD Address: Address: [address] [place] [address] Name: Andrew Rodriguez Patti Personnel Name: Bienvenido Barroso MD Address: Address: [address] [place] [address] Name: Andrew Rodriguez Personnel Name: Bienvenido Barroso MD Address: Address: [address] [place] [address] Name: Andrew Rodriguez Personnel Name: Bienvenido Barroso MD Address: Address: [address] [place] [address] Name: Andrew Rodriguez Personnel Name: Bienvenido Barroso MD Address: Address: [address] [place] [address] Name: Andrew Rodriguez Personnel Name: Bienvenido Barroso MD Address: Address: [address] [place] [address] Name: Luis Gil LPN Name: Jackson Rodriguezan [...] BE BASED ON THE PRIMARY CLINICAL RECORDS. [employer] provides no warranty or guarantee of the accuracy or completeness of information in this document.
--- OUTSIDE RECORDS SUMMARY | 2023-12-29 09:31 | XMS_ITS | CCD ---
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 Name Role Phone Unavailable Primary Care Provider Unavailabl e PROVIDER, UNKNOWN Attending Unavailable PROVIDER, UNKNOWN Admitting Unavailable PROVIDER, UNKNOWN Attending Unavailable PROVIDER, UNKNOWN Admitting Unavailable Bienvenido Barroso Primary Care Physician [phone] Andrew Rodriguez Unavailable Unavailable Luis Gil Unavailable [...] Refills(s) 0 Start Date: 06/16/14 Status: Ordered [id number] 200 actuat albuterol 0.09 mg/actuat metered dose inhaler (4 sources) beta2-Adrenergic Agonist Start: 04-27-2021 take 2 puff(s) by inhalation four times daily for wheezing Pro-Air HFA CFC free 90 mcg/inh MDI 2 puff(s), Inhalation, QID for wheezing, 8.5 gram, Refill(s) 0, [facility], 167.6, cm, 04/24/21 18:14:00 EST, Height/Length [...] Daily, # 30 tab(s), Refills(s) 0, Pharmacy: [facility], 167, cm, 11/28/22 17:20:00 EDT, Height/Length [...] Daily, # 90 tab(s), Refills(s) 4, Pharmacy: [facility], 160, cm, 12/18/22 0:04:00 EDT, Height/Length [...] Daily, # 90 tab(s), Refills(s) 4, Pharmacy: [facility], 160, cm, 12/18/22 0:04:00 EDT, Height/Length [...] Daily, # 90 tab(s), Refills(s) 1, Pharmacy: [facility], 160, cm, 12/18/22 0:04:00 EDT, Height/Length Dosing, 94, kg, 12/18/22 0:04:00 EDT, Weight Dosing Start Date: 01/15/23 Status: Ordered Start: 12-02-2022 take 1 tablet by ruperto th once daily furosemide 40 mg Tab 40 mg = 1 tab(s), Oral, Daily, # 30 tab(s), Refills(s) 0, Pharmacy: [facility], 167, cm, 11/28/22 17:20:00 EDT, Height/Length [...] day, # 30 tab(s), Refills(s) 0, Pharmacy: [facility], 167, cm, 09/26/22 10:09:00 EDT, Height/Length [...] qHS, # 210 tab(s), Refills(s) 1, Pharmacy: [facility], 160, cm, 12/18/22 0:04:00 EDT, Height/Length [...] Bedtime, # 30 tab(s), Refills(s) 0, Pharmacy: [facility], 167, cm, 11/28/22 17:20:00 EDT, Height/Length [...] Daily, # 90 tab(s), Refills(s) 1, Pharmacy: [facility], 160, cm, 12/18/22 0:04:00 EDT, Height/Length [...] week(s), # 8 cap(s), Refills(s) 0, Pharmacy: [facility], 167, cm, 11/28/22 17:20:00 EDT, Height/Length [...] Completed Start: 06-16-2014 take 1 capsule by [facility] twice daily tamsulosin 0.4 mg Cap 0.4 [...] Coronary atherosclerosis; Translations: [Atherosclerotic heart disease of [place] coronary artery without angina pectoris] Onset: 11-29-2022 [...] Facility Insurance Correspondenceon 05-25-2022 Insurance Correspondence [id number]# 1.00TIFF [facility] Coding Queryon 02-17-2023 Coding Query [facility] Discharge Instructionson Discharge Instructions [id number]# 1.00CD:127 Normal [facility] Transfer Documentson 023 Transfer Documents [id number]# 1.00CD:127 Normal [facility] Discharge Note-Nursingon Discharge Note-Nursing Normal [facility] Interdisciplinary Note - Santosh e Manageron 01-23-2023 Interdisciplinary Note - Snipper Normal [facility] Comment on above: Result Comment: Elec tronically Signed By: Norma Garcia RN\.br\Date and Time Signed: 01/23/23 16:29 EDT Progress Note-Physicianon Progress Note-Physician Normal [facility] Comment on above: Result Comment: Elec tronically Signed By: New Johnson DO.br\Date and Time Signed: 01/23/23 09:50 EDT Auto Diffon 01-22-2023 Basophils/100 WBC (Bld) 0.7 % Normal 0.0-2.0 [facility] Comment on above: Order Comment: Order Added by Discern Expert. Performed By: #### 2 020949, 69396527, 5483304, 4901390 ####[address] [address] Basophils/Leukocytes Auto (Bld) [Pure # fraction] 0.1 E9/L Normal 0.0-0.2 [facility] Comment on above: Order Comment: Order Added by Discern Expert. Performed By: #### 2 665184, 72276299, 3881689, 2868039 ####[address] [address] Eosinophils/100 WBC (Bld) 9.3 % High 0.0-8.0 [facility] Comment on above: Order Comment: Order Added by Discern Expert. Performed By: #### 2 690144, 91364941, 0897849, 1714786 ####[address] [address] Eosinophils/Leukocytes Auto (Bld) [Pure # fraction] 0.8 E9/L High 0.0-0.5 [facility] Comment on above: Order Comment: Order Added by Discern Expert. Performed By: #### 2 956730, 51473462, 3484151, 7268194 ####[address] [address] Lymphocytes/100 WBC (Bld) 17.2 % Normal 14.0-50.0 [facility] Comment on above: Order Comment: Order Added by Discern Expert. Performed By: #### 2 988812, 80232736, 8372904, 6981123 ####[address] [address] Lymphocytes/Leukocytes Auto (Bld) [Pure # fraction] 1.4 E9/L Normal 1.0-4.0 [facility] Comment on above: Order Comment: Order Added by Discern Expert. Performed By: #### 2 284726, 33768510, 6894640, 5991833 ####[address] [address] Monocytes/100 WBC (Bld) 10.0 % Normal 4.0-14.0 [facility] Comment on above: Order Comment: Order Added by Discern Expert. Performed By: #### 2 744415, 16480395, 1417148, 2930113 ####[address] [address] Monocytes/Leukocytes Auto (Bld) [Pure # fraction] 0.8 E9/L Normal 0.2-1.0 [facility] Comment on above: Order Comment: Order Added by Discern Expert. Performed By: #### 2 794226, 58311230, 4130791, 0388452 ####[address] [address] Neutrophils/100 WBC (Bld) 62.8 % Normal 36.0-75.0 [facility] Comment on above: Order Comment: Order Added by Discern Expert. Performed By: #### 2 525552, 36358250, 1694040, 6877614 ####[address] [address] Neutrophils/Leukocytes Auto (Bld) [Pure # fraction] 5.2 E9/L Normal 2.0-7.5 [facility] Comment on above: Order Comment: Order Added by Discern Expert. Performed By: #### 2 225658, 53314256, 7766017, 5335261 ####[address] [address] CBC w/ Auto Diffon 3 Erythrocyte distribution width (RBC) [Ratio] 15.2 % High 10.9-14.2 [facility] Comment on above: Performed By: #### 2 899923, 06584517, 5479853, 0493159 ####[address] [address] Hematocrit (Bld) [Volume fraction] 43.1 % Normal 37.7-49.0 [facility] Comment on above: Performed By: #### 2 502420, 16190919, 2569088, 2656354 ####[address] [address] Hemoglobin (Bld) [Mass/Vol] 14.6 g/dL Normal 13.5-17.5 [facility] Comment on above: Performed By: #### 2 801695, 66584603, 8849997, 5995239 ####[facility] [address] [place] [address] MCH (RBC) [Entitic mass] 28.1 pg Normal 27.0-34.0 [facility] Comment on above: Performed By: #### 2 317033, 83603670, 1239997, 6768786 ####[address] [address] MCHC (RBC) [Mass/Vol] 33.8 g/dL Normal 31.4-36.0 [facility] Comment on above: Performed By: #### 2 463207, 29734835, 9368685, 4345011 ####[place] [address] MCV (RBC) [Entitic vol] 83.2 fL Normal 80.0-100.0 [facility] Comment on above: Performed By: #### 2 942465, 87160884, 9422119, 5880713 ####[address] [address] Platelet mean volume (Bld) [Entitic vol] 8.6 fL Normal 6.4-10.8 [facility] Comment on above: Performed By: #### 2 499982, 27918604, 6811108, 5224427 ####[facility] [address] [place] [address] Platelets (Bld) [#/Vol] 221.0 E9/L Normal 150.0-500.0 [facility] Comment on above: Performed By: #### 2 765715, 41969963, 2530817, 7582113 ####[facility] [address] [place] [address] RBC (Bld) [#/Vol] 5.2 E12/L Normal 4.3-5.9 [facility] Comment on above: Performed By: #### 2 363523, 31811702, 9474678, 4377898 ####[facility] [address] [place] [address] WBC corrected for nucl RBC Auto (Bld) [#/Vol] 8.3 E9/L Normal 4.0-11.0 [facility] Comment on above: Performed By: #### 2 668187, 57385521, 3484132, 3381251 ####[facility] [address] [place] [address] CHEMISTRYOrdered By: Lab ROP User on 01-22-2023 Glucose [Mass/Vol] 121 mg/dL High 55 - 99 mg/dL [facility] [place] POC Subsection Comment on above: Result Comment: Gareth guerrero RN/ POC Device SN [id number] Invalid Interpretation Code [facility] [place] POC Subsection POC User ID [id number] Invalid Interpretation Code [facility] [place] POC Subsection POC Username LATONIA MALHOTRA Invalid Interpretation Code [facility] [place] POC Subsection CHEMISTRYOrdered By: SYSTEM SYSTEM on [...] 01-22-2023 Albumin [Mass/Vol] 3.7 g/dL Normal 3.3-5.0 [facility] Comment on above: Performed By: #### 2 608075, 03212072, 5615608, 5288846 ####[facility] [address] [place] [address] Albumin/Globulin (S) [Mass conc ratio] 1.0 Low 1.1-2.2 [facility] Comment on above: Performed By: #### 2 802166, 31148958, 8667708, 3924140 ####[facility] [address] [place] [address] ALP [Catalytic activity/Vol] 47 Int._Unit/L Normal 21-98 [facility] Comment on above: Performed By: #### 2 494816, 86670144, 7545640, 5470082 ####[facility] [address] [place] [address] ALT No additional P-5'-P [Catalytic activity/Vol] 21 Int._Unit/L Normal 6-46 [facility] Comment on above: Performed By: #### 2 501257, 57856826, 9323277, 8581953 ####[facility] [address] [place] [address] Anion gap [Moles/Vol] 15 mmol/L Normal 6-16 [facility] Comment on above: Performed By: #### 2 156526, 12334364, 1992483, 0567125 ####[facility] [address] [place] [address] AST [Catalytic activity/Vol] 21 Int._Unit/L Normal 5-43 [facility] Comment on above: Performed By: #### 2 389565, 31452383, 2566211, 7007813 ####[facility] [address] [place] [address] Bilirubin [Mass/Vol] 0.8 mg/dL Normal 0.0-1.1 [facility] Comment on above: Performed By: #### 2 420032, 91806148, 6671628, 5416105 ####[facility] [address] [place] [address] Calcium [Mass/Vol] 9.6 mg/dL Normal 8.9-11.1 [facility] Comment on above: Performed By: #### 2 985165, 38329204, 6025697, 6281401 ####[facility] [address] [place] [address] Chloride [Moles/Vol] 97 mmol/L Low 101-111 [facility] Comment on above: Performed By: #### 2 165112, 62227990, 6853485, 8684211 ####[facility] [address]N[facility] [place] [address] CO2 [Moles/Vol] 30 mmol/L Normal 21-31 [facility] Comment on above: Performed By: #### 2 964997, 80291895, 4002321, 6805969 ####[facility] [address] [place] [address] Creatinine [Mass/Vol] 1.3 mg/dL Normal 0.5-1.3 [facility] Comment on above: Performed By: #### 2 362634, 00565949, 7375716, 0591437 ####[facility] [address] [place] [address] Globulin (S) [Mass/Vol] 3.6 g/dL Normal 1.4-4.0 [facility] Comment on above: Performed By: #### 2 572203, 19542952, 5680478, 0996553 ####[facility] [address] [place] [address] Glucose [Mass/Vol] 124 mg/dL Normal 55-199 [facility] Comment on above: Result Comment: If t his glucose result represents a fasting glucose, interpretation should refer to the following reference range: 55-99 mg/dL Performed By: #### 2 655792, 71552894, 9949408, 1983977 ####[facility] [address] [place] [address] Potassium [Moles/Vol] 4.0 mmol/L Normal 3.5-5.3 [facility] Comment on above: Performed By: #### 2 213595, 24231924, 3392120, 5531489 ####[facility] [address] [place] [address] Protein [Mass/Vol] 7.3 g/dL Normal 6.0-7.8 [facility] Comment on above: Performed By: #### 2 927365, 84727258, 7625503, 9008663 ####[facility] [address] [place] [address] Sodium [Moles/Vol] 138 mmol/L Normal 135-145 [facility] Comment on above: Performed By: #### 2 268343, 48226795, 8559449, 0397381 ####[facility] [address] [place] [address] Urea nitrogen [Mass/Vol] 42 mg/dL High 5-21 [facility] Comment on above: Performed By: #### 2 549372, 43197436, 7985770, 9687080 ####[facility] [address] [place] [address] Urea nitrogen/Creatinine [Mass ratio] 32 No Units High 10-20 [facility] Comment on above: Performed By: #### 2 756078, 46254587, 6590990, 4969875 ####[facility] [address] [place] [address] Capillary Glucose POCon Glucose [Mass/Vol] 121 mg/dL High 55-99 [facility] Comment on above: Result Comment: Gareth guerrero RN/ Performed By: #### 2 93892908 ####[facility] [address] [place] [address] Coding Queryon 01-22-2023 Coding Query Normal [facility] HEMATOLOGYOrdered By: SYSTEM SYSTEM on [...] Correspondence Off iceon 01-22-2023 Insurance Correspondence Office [id number]#1 .00CD:127 Normal [facility] Interdisciplinary Note - Santosh e Manageron 01-22-2023 Interdisciplinary Note - Snipper Normal [facility] Comment on above: Result Comment: Elec tronically Signed By: Natalie Grant\.br\Date and Time Signed: 01/22/23 11:13 EDT Interdisciplinary Note - Murphy n 01-22-2023 Interdisciplinary Note - OT Normal [facility] Interdisciplinary Note - PTo n 01-22-2023 Interdisciplinary Note - PT Normal [facility] Message from Medicareon 090 Message from Medicare [id number]#1 .00CD:127 Normal [facility] Progress Note-Physicianon Progress Note-Physician Normal [facility] Comment on above: Result Comment: Elec tronically Signed By: New Johnson DO.br\Date and Time Signed: 01/22/23 14:15 EDT eGFRon 01-22-2023 GFR/1.73 sq M.predicted among non-blacks MDRD (S/P/Bld) [Vol rate/Area] 56 mL/min/1.73 m2 Low >=59 [facility] Comment on above: Order Comment: Order added by Discern Expert. Result Comment: [employer] S[employer] earnest kidney disease could be indicated at eGFR's of less than 60 mL/min/1.73m2. Kidney failure is indicated at less than 15 mL/min/1.73m2. Performed By: #### 2 183476, 83794415, 0179616, 0560977 ####[facility] [address] [place] [address] Auto Diffon 01-21-2023 Basophils/100 WBC (Bld) 0.9 % Normal 0.0-2.0 [facility] Comment on above: Order Comment: Order Added by Discern Expert. Performed By: #### 2 789933, 7658112, 30111981, 35096786, 1787258, 0481424 ####[facility] [address] [place] [address] Basophils/Leukocytes Auto (Bld) [Pure # fraction] 0.1 E9/L Normal 0.0-0.2 [facility] Comment on above: Order Comment: Order Added by Discern Expert. Performed By: #### 2 704567, 3514812, 61300759, 66018258, 0878526, 4053325 ####[facility] [address] [place] [address] Eosinophils/100 WBC (Bld) 3.3 % Normal 0.0-8.0 [facility] Comment on above: Order Comment: Order Added by Discern Expert. Performed By: #### 2 274021, 7165472, 99962978, 16358219, 1702360, 9739142 ####[facility] [address] [place] [address] Eosinophils/Leukocytes Auto (Bld) [Pure # fraction] 0.4 E9/L Normal 0.0-0.5 [facility] Comment on above: Order Comment: Order Added by Discern Expert. Performed By: #### 2 453194, 1653618, 74383479, 90010826, 8962261, 2512909 ####[address] [address] Lymphocytes/100 WBC (Bld) 10.4 % Low 14.0-50.0 [facility] Comment on above: Order Comment: Order Added by Discern Expert. Performed By: #### 2 327150, 8376639, 67926041, 50826817, 8572189, 6268246 ####[address] [address] Lymphocytes/Leukocytes Auto (Bld) [Pure # fraction] 1.2 E9/L Normal 1.0-4.0 [facility] Comment on above: Order Comment: Order Added by Discern Expert. Performed By: #### 2 887688, 1953289, 43225760, 35660746, 6459249, 1737599 ####[place] [address] [place] [address] Monocytes/100 WBC (Bld) 7.4 % Normal 4.0-14.0 [facility] Comment on above: Order Comment: Order Added by Discern Expert. Performed By: #### 2 883177, 4087721, 90982346, 65019334, 0077383, 6528150 ####[facility] [address] [place] [address] Monocytes/Leukocytes Auto (Bld) [Pure # fraction] 0.9 E9/L Normal 0.2-1.0 [facility] Comment on above: Order Comment: Order Added by Discern Expert. Performed By: #### 2 588740, 2234783, 59624470, 22499973, 5040055, 8218083 ####[place] [place] [address] Neutrophils/100 WBC (Bld) 78.0 % High 36.0-75.0 [facility] Comment on above: Order Comment: Order Added by Discern Expert. Performed By: #### 2 151719, 2097612, 31435722, 82386455, 0731274, 9541096 ####[place] [address] [place] [address] Neutrophils/Leukocytes Auto (Bld) [Pure # fraction] 9.1 E9/L High 2.0-7.5 [facility] Comment on above: Order Comment: Order Added by Discern Expert. Performed By: #### 2 056312, 1389228, 43626855, 02215263, 6974078, 7769326 ####[facility] [address] [place] [address] BMPon 01-21-2023 Creatinine [Mass/Vol] 1.2 mg/dL Normal 0.5-1.3 [facility] Comment on above: Performed By: #### 2 007742, 2514523, 55972233, 69778336, 5685658, 8291406 ####[facility] [address] [place] [address] Urea nitrogen [Mass/Vol] 38 mg/dL High 5-21 [facility] Comment on above: Performed By: #### 2 568162, 9084419, 46334514, 96422857, 0963003, 7043817 ####[facility] [address] [place] [address] Urea nitrogen/Creatinine [Mass ratio] 32 No Units High 10-20 [facility] Comment on above: Performed By: #### 2 900229, 3384925, 60054771, 41340217, 7275206, 3124309 ####[facility] [address] [place] [address] Anion gap [Moles/Vol] 14 mmol/L Normal 6-16 [facility] Comment on above: Performed By: #### 2 651236, 1321579, 57274360, 76768973, 4483603, 1184104 ####[facility] [address] [place] [address] Calcium [Mass/Vol] 9.9 mg/dL Normal 8.9-11.1 [facility] Comment on above: Performed By: #### 2 541946, 9796631, 21376245, 34884722, 3642020, 8218693 ####[facility] [address] [place] [address] Chloride [Moles/Vol] 95 mmol/L Low 101-111 [facility] Comment on above: Performed By: #### 2 544895, 7764227, 67623565, 74537195, 2799611, 1684365 ####[facility] [address] [address] CO2 [Moles/Vol] 31 mmol/L Normal 21-31 [facility] Comment on above: Performed By: #### 2 013965, 4216678, 36317705, 76289644, 8947971, 9102414 ####[facility] [address] [place] [address] Glucose [Mass/Vol] 124 mg/dL Normal 55-199 [facility] Comment on above: Result Comment: If t his glucose result represents a fasting glucose, interpretation should refer to the following reference range: 55-99 mg/dL Performed By: #### 2 645984, 9953900, 17844179, 66912095, 4084523, 3749624 ####[facility] [address] [place] [address] Potassium [Moles/Vol] 4.3 mmol/L Normal 3.5-5.3 [facility] Comment on above: Performed By: #### 2 251797, 9927588, 34815945, 18875561, 1487540, 6683692 ####[facility] [address] [place] [address] Sodium [Moles/Vol] 136 mmol/L Normal 135-145 [facility] Comment on above: Performed By: #### 2 379193, 8470431, 85054474, 25059580, 2096152, 4708863 ####[facility] [address] [place] [address] CBC w/ Auto Diffon Erythrocyte distribution width (RBC) [Ratio] 15.4 % High 10.9-14.2 [facility] Comment on above: Performed By: #### 2 883792, 7181300, 37034186, 10732852, 2670587, 4803667 ####[facility] [address] [place] [address] Hematocrit (Bld) [Volume fraction] 42.5 % Normal 37.7-49.0 [facility] Comment on above: Performed By: #### 2 596113, 8200382, 52718957, 05360248, 7924750, 8864214 ####[facility] [address] [place] [address] Hemoglobin (Bld) [Mass/Vol] 13.9 g/dL Normal 13.5-17.5 [facility] Comment on above: Performed By: #### 2 648205, 5643829, 92346627, 56461377, 1965264, 6973614 ####[facility] [address] [place] [address] MCH (RBC) [Entitic mass] 27.3 pg Normal 27.0-34.0 [facility] Comment on above: Performed By: #### 2 057294, 0620949, 18337104, 63319588, 7503676, 9518328 ####[facility] [address] [place] [address] MCHC (RBC) [Mass/Vol] 32.7 g/dL Normal 31.4-36.0 [facility] Comment on above: Performed By: #### 2 327179, 5436076, 47631093, 95979688, 0779535, 9607840 ####[place] [address] MCV (RBC) [Entitic vol] 83.4 fL Normal 80.0-100.0 [facility] Comment on above: Performed By: #### 2 114074, 6354131, 72945962, 36271325, 0323799, 4178480 ####[address] [address] Platelet mean volume (Bld) [Entitic vol] 8.6 fL Normal 6.4-10.8 [facility] Comment on above: Performed By: #### 2 364812, 1303609, 52248598, 84870940, 1559962, 3824423 ####[address] [address] Platelets (Bld) [#/Vol] 252.0 E9/L Normal 150.0-500.0 [facility] Comment on above: Performed By: #### 2 658789, 0524315, 27416603, 08223918, 4567802, 9994047 ####[address] [address] RBC (Bld) [#/Vol] 5.1 E12/L Normal 4.3-5.9 [facility] Comment on above: Performed By: #### 2 852395, 0893528, 64218010, 62336849, 4380236, 9174436 ####[facility] [address] [place] [address] WBC corrected for nucl RBC Auto (Bld) [#/Vol] 11.6 E9/L High 4.0-11.0 [facility] Comment on above: Performed By: #### 2 183233, 2199483, 92571223, 10178883, 6711066, 9416318 ####[facility] [address] [place] [address] CHEMISTRYOrdered By: SYSTEM SYSTEM on 01-21-2023 Troponin [...] Treatmenton 12-24 Consent for Treatment [id number] .00CD:127 Normal [facility] ED Clinical Summaryon 2022 ED Clinical Summary Normal [facility] ED Note-Physicianon 01-22-20 ED Note-Physician Normal [facility] Comment on above: Result Comment: Elec tronically Signed By: Gustavo Yusuf DO.br\Date and Time Signed: 01/21/23 19:26 EDT ED Patient Education Noteon 01-21-2023 ED Patient Education Note Normal [facility] ED Patient Summaryon 023 ED Patient Summary Normal [facility] HEMATOLOGYOrdered By: SYSTEM SYSTEM on [...] 5.1 E12/L Normal 4.3 - 5.9 E12/L [facility] [place] HemeAutoSS WBC corrected for nucl RBC Auto (Bld) [#/Vol] 11.6 E9/L High 4.0 - 11.0 E9/L [facility] [place] HemeAutoSS Hep Func Panelon 01-21-2023 Bilirubin.direct [Mass/Vol] 0.1 mg/dL Normal 0.1-0.4 [facility] Comment on above: Performed By: #### 2 665005, 1423463, 90170661, 25685879, 0339113, 8503459 ####[facility] [address] [place] [address] Bilirubin.indirect [Mass or moles/Vol] 0.8 mg/dL Normal 0.1-0.9 [facility] Comment on above: Performed By: #### 2 441627, 2758943, 12989561, 24963999, 1783804, 6939466 ####[facility] [address] [place] [address] Albumin [Mass/Vol] 3.9 g/dL Normal 3.3-5.0 [facility] Comment on above: Performed By: #### 2 409360, 6526094, 31329095, 70449860, 1012727, 7642499 ####[facility] [address] [place] [address] Albumin/Globulin (S) [Mass conc ratio] 1.0 Low 1.1-2.2 [facility] Comment on above: Performed By: #### 2 853722, 7051825, 89384514, 21373162, 0652673, 2015665 ####[address] [place] [address] ALP [Catalytic activity/Vol] 50 Int._Unit/L Normal 21-98 [facility] Comment on above: Performed By: #### 2 116031, 4089000, 82744908, 75257810, 2749255, 1355632 ####[facility] [address] [place] [address] ALT No additional P-5'-P [Catalytic activity/Vol] 23 Int._Unit/L Normal 6-46 [facility] Comment on above: Performed By: #### 2 221768, 9384671, 38314348, 80319946, 2807429, 8263503 ####[facility] [address] [place] [address] AST [Catalytic activity/Vol] 22 Int._Unit/L Normal 5-43 [facility] Comment on above: Performed By: #### 2 099304, 1581265, 61591512, 88753258, 5027893, 6090368 ####[facility] [address] [place] [address] Bilirubin [Mass/Vol] 0.9 mg/dL Normal 0.0-1.1 [facility] Comment on above: Performed By: #### 2 876535, 6781605, 51906333, 00450214, 6392317, 4312532 ####[facility] [address] [place] [address] Globulin (S) [Mass/Vol] 3.8 g/dL Normal 1.4-4.0 [facility] Comment on above: Performed By: #### 2 837389, 9496539, 69830972, 07046702, 2855352, 9356952 ####[facility] [address] [place] [address] Protein [Mass/Vol] 7.7 g/dL Normal 6.0-7.8 [facility] Comment on above: Performed By: #### 2 460669, 1811541, 14135336, 64797379, 4896036, 9451022 ####[facility] [address] [place] [address] Long Term Recordson 01-21 Long Term Records [id number]# 1.00CD:127 Normal [facility] Troponin 0 Hr.on 01-21-2023 Troponin I.cardiac [Mass/Vol] 25.50 pg/mL Normal 15.90-38.40 [facility] Comment on above: Result Comment: The 95% CI (Confidence Interval) PPV (Positive Predictive Value) for myocardial infarction in females is 38 pg/mL, in males 51 pg/mL. The results should be used in conjunction with clinical conditions of myocardial infarction.(Access High Sensitivity Troponin I Instructions For Use, [employer], December 2017) Performed By: #### 2 580279, 6554221, 29773251, 71528316, 2537673, 1879969 ####[address] [address] Troponin 3 Hr.on 01-21-2023 Troponin I.cardiac [Mass/Vol] 23.90 pg/mL Normal 15.90-38.40 [facility] Comment on above: Result Comment: The 95% CI (Confidence Interval) PPV (Positive Predictive Value) for myocardial infarction in females is 38 pg/mL, in males 51 pg/mL. The results should be used in conjunction with clinical conditions of myocardial infarction.([employer] High Sensitivity Troponin I Instructions For Use, [employer], December 2017) Performed By: #### 1 5676476 ####[address] [address] UA With Cult Reflexon 2022 Bilirubin Ql (U) Negative Normal Negative [facility] Comment on above: Performed By: #### 1 3923152 ####[address] [address] Clarity (U) CLEAR Normal Clear [facility] Comment on above: Performed By: #### 1 8870400 ####[address] [address] Color (U) STRAW Abnormal Yellow [facility] Comment on above: Performed By: #### 1 0125643 ####[address] [address] Epithelial cells.squamous LM.HPF (Urine sed) [#/Area] 0-2 Normal 0-2 [facility] Comment on above: Performed By: #### 1 4272750 ####[address] [address] Glucose Test strip (U) [Mass/Vol] Negative Normal Negative [facility] Comment on above: Performed By: #### 1 1119577 ####[address] [address] Hemoglobin Ql (U) Negative Normal Negative [facility] Comment on above: Performed By: #### 1 7588891 ####[address] [address] Ketones (U) [Mass/Vol] Negative Normal Negative [facility] Comment on above: Performed By: #### 1 4161549 ####[address] [address] Lismore.plasma/Lismore.R BC (Bld) [Mass ratio] 0-3 Normal 0-3 [facility] Comment on above: Performed By: #### 1 5497406 ####[address] [address] Nitrite Ql (U) Negative Normal Negative [facility] Comment on above: Performed By: #### 1 1780839 ####[address] [address] pH (U) 6.0 [pH] Invalid Interpretation Code 5.0-9.0 [facility] Comment on above: Performed By: #### 1 0743509 ####[address] [address] Protein (U) [Mass/Vol] Negative Normal Negative [facility] Comment on above: Performed By: #### 1 5172360 ####[address] [address] Specific gravity (U) [Rel density] 1.010 Invalid Interpretation Code 1.005-1.030 [facility] Comment on above: Performed By: #### 1 1155267 ####[address] [address] Type of Urine collection method Clean Catch Normal [facility] Comment on above: Performed By: #### 1 1495547 ####[facility] [address] [place] [address] Urobilinogen Qn (U) 0.2 {Lei'U}/dL Normal 0.0-1.0 [facility] Comment on above: Performed By: #### 1 7780484 ####[facility] [address] [place] [address] WBC Auto Ql (U) Negative Normal Negative [facility] Comment on above: Performed By: #### 1 9922064 ####[facility] [address] [place] [address] WBC LM.HPF (Urine sed) [#/Area] 0-5 Normal 0-5 [facility] Comment on above: Performed By: #### 1 9307453 ####[facility] [address] [place] [address] URINALYSISOrdered By: Karen Vergara on 01-21-2023 Bilirubin [...] PM) Normal Negative [facility] UA Auto SS Lismore.plasma/Lismore.R BC (Bld) [Mass ratio] 0-3 /HPF Normal 0-3/HPF [facility] UA Au to SS Nitrite Ql (U) Negative (01/21/23 4:41 PM) Normal Negative [facility] UA Auto SS pH (U) 6.0 *NA* (01/21/23 4:41 PM) Invalid Interpretation Code 5.0 - 9.0 [facility] UA Auto SS Protein (U) [Mass/Vol] Negative (01/21/23 4:41 PM) Normal Negative [facility] UA Auto SS Specific gravity (U) [Rel density] 1.010 *NA* (01/21/23 4:41 PM) Invalid Interpretation Code 1.005 - 1.030 [facility] UA Auto SS UA Spec Desc Clean Catch (01/21/23 4:41 PM) Normal [facility] UA Auto SS Urobilinogen Qn (U) 0.2734450 {Lei'U}/dL Normal 0.0 - 1.0 EU/dL [facility] [place] [facility] UA Auto SS WBC Auto Ql (U) Negative (01/21/23 4:41 PM) Normal Negative [facility] [place] UA Auto SS WBC LM.HPF (Urine sed) [#/Area] 0-5 /HPF Normal 0-5/HPF [facility] [place] [facility] UA Auto SS XR Chest Single Viewon 01-21 XR Chest Single View Normal [facility] eGFRon 01-21-2023 GFR/1.73 sq M.predicted among non-blacks MDRD (S/P/Bld) [Vol rate/Area] 62 mL/min/1.73 m2 Normal >=59 [facility] Comment on above: Order Comment: Order added by Discern Expert. Result Comment: [employer] earnest kidney disease could be indicated at eGFR's of less than 60 mL/min/1.73m2. Kidney failure is indicated at less than 15 mL/min/1.73m2. Performed By: #### 2 845543, 4333827, 75946319, 22926513, 6496891, 8280056 ####[facility] [address] [place] [address] Discharge Instructionson Discharge Instructions [id number] .00CD:127 Normal [facility] Capillary Glucose POCon 12-23 Glucose [Mass/Vol] 117 mg/dL High 55-99 [facility] Comment on above: Result Comment: Yazmin bri Meter Performed By: #### 2 [id number] ####[facility] [address] [place] [address] Family Medicine Office/Clini c Noteon 01-15-2023 Family Medicine Office/Clinic Note Normal [facility] Comment on above: Result Comment: Elec tronically Signed By: SHAISTA POTTS, Dennise.br\Date and Time Signed: 01/15/23 16:46 EDT Capillary Glucose POCon 12-23 Glucose [Mass/Vol] 121 mg/dL High [address] [place] [address] Comment on above: Result Comment: Yazmin bri Meter Performed By: #### 2 13497540 ####[facility] [address] [place] [address] Capillary Glucose POCon 12-23 Glucose [Mass/Vol] 127 mg/dL [address] Comment on above: Result Comment: Yazmin bri Meter Performed By: #### 2 04588682 ####[facility] [address] [place] [address] Capillary Glucose POCon 12-22 Glucose [Mass/Vol] 104 mg/dL [address] Comment on above: Result Comment: Yazmin bri Meter Performed By: #### 2 68027143 ####[facility] [address] [place] [address] Capillary Glucose POCon 12-22 Glucose [Mass/Vol] 121 mg/dL [address] Comment on above: Result Comment: Yazmin bri Meter Performed By: #### 2 93380308 ####[facility] [address] [place] [address] Capillary Glucose POCon 12-22 Glucose [Mass/Vol] 110 mg/dL [address] Comment on above: Result Comment: Yazmin bri Meter Performed By: #### 2 14508688 ####[facility] [address] [place] [address] Capillary Glucose POCon 12-22 Glucose [Mass/Vol] 119 mg/dL [address] Comment on above: Result Comment: Yazmin bri Meter Performed By: #### 2 64717501 ####[facility] [address] [place] [address] Capillary Glucose POCon 12-22 Glucose [Mass/Vol] 141 mg/dL High 55-99 [facility] Comment on above: Result Comment: Yazmin bri Meter Performed By: #### 2 80860448 ####[facility] [address] [place] [address] Capillary Glucose POCon 12-22 Glucose [Mass/Vol] 104 mg/dL High 55-99 [facility] Comment on above: Result Comment: Yazmin bri Meter Performed By: #### 2 22904394 ####[facility] [address] [place] [address] BMPon 12-30-2022 Calcium [Mass/Vol] 9.1 mg/dL Normal 8.9-11.1 [facility] Comment on above: Performed By: #### 7 52837267, 8444114, 32200963 ####[facility] [address] [address] Anion gap [Moles/Vol] 18 mmol/L High 6-16 [facility] Comment on above: Performed By: #### 7 01983576, 2855940, 12244254 ####[facility] [address] [place] [address] Chloride [Moles/Vol] 91 mmol/L Low 101-111 [facility] Comment on above: Performed By: #### 7 24325839, 8837530, 71532008 ####[facility] [address] [place] [address] CO2 [Moles/Vol] 30 mmol/L Normal 21-31 [facility] Comment on above: Performed By: #### 7 91983314, 4491509, 50812329 ####[facility] [address] [place] [address] Creatinine [Mass/Vol] 1.3 mg/dL Normal 0.5-1.3 [facility] Comment on above: Performed By: #### 7 38972888, 7418978, 61549811 ####[facility] [address] [place] [address] Glucose [Mass/Vol] 171 mg/dL Normal 55-199 [facility] Comment on above: Result Comment: If t his glucose result represents a fasting glucose, interpretation should refer to the following reference range: 55-99 mg/dL Performed By: #### 7 13604247, 4055642, 95361359 ####[facility] [address] [place] [address] Potassium [Moles/Vol] 4.2 mmol/L Normal 3.5-5.3 [facility] Comment on above: Performed By: #### 7 97487246, 9277009, 19296892 ####[facility] [address] [place] [address] Sodium [Moles/Vol] 135 mmol/L Normal 135-145 [facility] Comment on above: Performed By: #### 7 43862267, 6609673, 77631937 ####[facility] [address] [place] [address] Urea nitrogen [Mass/Vol] 36 mg/dL High 5-21 [facility] Comment on above: Performed By: #### 7 55895822, 5882524, 39695038 ####[facility] [address] [place] [address] Urea nitrogen/Creatinine [Mass ratio] 28 No Units High 10-20 [facility] Comment on above: Performed By: #### 7 82384291, 9589597, 29347564 ####[facility] [address] [place] [address] XjhM2cvc 12-30-2022 HbA1c (Bld) [Mass fraction] 6.9 % High <=5.9 [facility] Comment on above: Performed By: #### 7 60856129, 2621803, 42384858 ####[facility] [address] [place] [address] eGFRon 12-30-2022 GFR/1.73 sq M.predicted among non-blacks MDRD (S/P/Bld) [Vol rate/Area] 56 mL/min/1.73 m2 Low >=59 [facility] Comment on above: Order Comment: Order added by Discern Expert. Result Comment: [employer] S[employer] earnest kidney disease could be indicated at eGFR's of less than 60 mL/min/1.73m2. Kidney failure is indicated at less than 15 mL/min/1.73m2. Performed By: #### 7 00743838, 5410021, 16328608 ####[facility] [address] [place] [address] Capillary Glucose POCon 08-0 Glucose [Mass/Vol] 141 mg/dL [facility] 55-99 [facility] Comment on above: Result Comment: Yazmin bri Meter Performed By: #### 2 86279421 ####[facility] [address] [place] [address] Capillary Glucose POCon 08-0 Glucose [Mass/Vol] 101 mg/dL [address] Comment on above: Result Comment: Yazmin bri Meter Performed By: #### 2 87868565 ####[facility] [address] [place] [address] C Blood Charcoalon 3 Blood Culture Charcoal Normal [facility] Comment on above: Performed By: #### 1 9886766 ####[facility] [address] [place] [address] Capillary Glucose POCon 08-0 Glucose [Mass/Vol] 135 mg/dL [facility] [address] [place] [address] Comment on above: Result Comment: Yazmin bri Meter Performed By: #### 2 74402486 ####[facility] [address] [place] [address] Capillary Glucose POCon 08-0 Glucose [Mass/Vol] 110 mg/dL [facility] 55-99 [facility] Comment on above: Result Comment: Yazmin bri Meter Performed By: #### 2 85548219 ####[facility] [address] [place] [address] Consultation Noteon 12-24-19 Consultation Note Normal [facility] Comment on above: Result Comment: Elec tronically Signed By: Marcus POTTS, [place]\.br\Date and Time Signed: 12/23/22 07:33 EDT Family Medicine Office/Clini c Noteon 12-23-2022 Family Medicine Office/Clinic Note Normal [facility] Comment on above: Result Comment: Elec tronically Signed By: SHAISTA POTTS, Donta\.br\Date and Time Signed: 12/22/22 22:31 EDT C Blood Charcoalon Blood Culture Charcoal Normal [facility] Comment on above: Performed By: #### 1 1982898 ####[facility] [address] [place] [address] U Legi Agon 12-22-2022 L. pneumophila 1 Ag IA Ql (U) Negative Invalid Interpretation Code Negative [facility] Comment on above: Result Comment: Pres umptive negative for L. pneumophila serogroup 1 antigen in urine,suggesting no recent or current infection. Legionnaires' diseasecannot be ruled out since other serogroups and species may also causedisease.Performed at: [facility] [id number] MD Tyler Gurrola Performed By: #### 2 804617 ####[facility] [address] [place] [address] C Urineon 12-21-2022 Bacteria identified Cx Nom (U) Normal [facility] Comment on above: Performed By: #### 1 8960162, 1708445 ####[facility] [address] [place] [address] Capillary Glucose POCon 11-23 Glucose [Mass/Vol] 134 mg/dL High 55-99 [facility] Comment on above: Result Comment: Yazmin bri Meter Performed By: #### 2 [id number] ####[facility] [address] [address] Auto DiffOrdered By: SYSTEM SYSTEM on 12-20-2022 Basophils/100 WBC (Bld) 0.5 % Normal 0.0-2.0 F [facility] HemeAutoSS Comment on above: Order Comment: Order Added by Discern Expert. Performed By: #### 2 020815, 6430302, 95228728, 4122970 ####[address] [address] Basophils/Leukocytes Auto (Bld) [Pure # fraction] 0.0 E9/L Normal 0.0-0.2 [facility] HemeAutoSS Comment on above: Order Comment: Order Added by Bethany Expert. Performed By: #### 2 497475, 6329255, 44681598, 8590939 ####[address] [address] Eosinophils/100 WBC (Bld) 7.9 % Normal 0.0-8.0 [facility] HemeAutoSS Comment on above: Order Comment: Order Added by Bethany Expert. Performed By: #### 2 591689, 8829847, 13027295, 1374470 ####[address] [address] Eosinophils/Leukocytes Auto (Bld) [Pure # fraction] 0.8 E9/L High 0.0-0.5 [facility] HemeAutoSS Comment on above: Order Comment: Order Added by Bethany Expert. Performed By: #### 2 248157, 8597324, 16733645, 0586665 ####[address] [address] Lymphocytes/100 WBC (Bld) 9.5 % Low 14.0-50.0 [facility] HemeAutoSS Comment on above: Order Comment: Order Added by Bethany Expert. Performed By: #### 2 075032, 2273736, 77961276, 1788599 ####[address] [address] Lymphocytes/Leukocytes Auto (Bld) [Pure # fraction] 1.0 E9/L Normal 1.0-4.0 [facility] HemeAutoSS Comment on above: Order Comment: Order Added by Discern Expert. Performed By: #### 2 714681, 8896583, 46916558, 6997559 ####[address] [place] [address] Monocytes/100 WBC (Bld) 7.6 % Normal 4.0-14.0 [facility] HemeAutoSS Comment on above: Order Comment: Order Added by Discern Expert. Performed By: #### 2 597107, 7301244, 37115151, 4138224 ####[address] [address] Monocytes/Leukocytes Auto (Bld) [Pure # fraction] 0.8 E9/L Normal 0.2-1.0 [facility] HemeAutoSS Comment on above: Order Comment: Order Added by Discern Expert. Performed By: #### 2 909199, 5785074, 06551986, 8681414 ####[address] [address] Neutrophils/100 WBC (Bld) 74.5 % Normal 36.0-75.0 [facility] HemeAutoSS Comment on above: Order Comment: Order Added by Discern Expert. Performed By: #### 2 878520, 0653846, 76055438, 5407877 ####[address] [address] Neutrophils/Leukocytes Auto (Bld) [Pure # fraction] 7.7 E9/L High 2.0-7.5 [facility] HemeAutoSS Comment on above: Order Comment: Order Added by Discern Expert. Performed By: #### 2 628602, 5286886, 54858311, 6038921 ####[address] [address] BMPOrdered By: SYSTEM SYSTEM on 12-20-2022 Anion gap [Moles/Vol] 8 mmol/L Normal 6-16 [facility] C Remisol Comment on above: Performed By: #### 2 530087, 9493158, 10167620, 5272642 ####[address] [address] Calcium [Mass/Vol] 7.9 mg/dL Low 8.9-11.1 [facility] emisol Comment on above: Performed By: #### 2 580546, 1745409, 65963689, 5805828 ####[facility] [address] [place] [address] Chloride [Moles/Vol] 105 mmol/L Normal 101-111 [facility] Remisol Comment on above: Performed By: #### 2 117940, 0938349, 98730338, 5846649 ####[facility] [address] [place] [address] CO2 [Moles/Vol] 25 mmol/L Normal 21-31 [facility] Ashwin luanne Comment on above: Performed By: #### 2 887449, 3762511, 24802168, 1591293 ####[facility] [address] [place] [address] Creatinine [Mass/Vol] 1.0 mg/dL Normal 0.5-1.3 [facility] Remisol Comment on above: Performed By: #### 2 860087, 2073357, 13006493, 1897475 ####[facility] [address] [place] [address] Glucose [Mass/Vol] 106 mg/dL Normal 55-199 [facility] emisol Comment on above: Result Comment: If t his glucose result represents a fasting glucose, interpretation should refer to the following reference range: 55-99 mg/dL Performed By: #### 2 480357, 6376805, 63422706, 4991005 ####[facility] [address] [place] [address] Potassium [Moles/Vol] 4.4 mmol/L Normal 3.5-5.3 [facility] C Remisol Comment on above: Performed By: #### 2 396965, 2546125, 81078949, 9634636 ####[facility] [address] [place] [address] Sodium [Moles/Vol] 134 mmol/L Low 135-145 [facility] R emisol Comment on above: Performed By: #### 2 778052, 9766400, 81894691, 4363784 ####[facility] [address] [place] [address] Urea nitrogen [Mass/Vol] 22 mg/dL High 5-21 [facility] Remisol Comment on above: Performed By: #### 2 086560, 1491540, 53112967, 6165773 ####[facility] [address] [place] [address] BMPon 12-20-2022 Urea nitrogen/Creatinine [Mass ratio] 22 No Units High 10-20 [facility] Comment on above: Performed By: #### 2 667051, 1331594, 72556508, 9557084 ####[address] [address] CBC w/ Auto DiffOrdered By: Bony Hdez on 12-20-2022 Erythrocyte distribution width (RBC) [Ratio] 14.7 % High 10.9-14.2 [facility] HemeAutoSS Comment on above: Performed By: #### 2 753205, 1360895, 45447320, 9732342 ####[address] [address] Hematocrit (Bld) [Volume fraction] 34.6 % Low 37.7-49.0 [facility] HemeAutoSS Comment on above: Performed By: #### 2 228122, 8707467, 65618709, 3852158 ####[address] [address] Hemoglobin (Bld) [Mass/Vol] 11.7 g/dL Low 13.5-17.5 [facility] HemeAutoSS Comment on above: Performed By: #### 2 398541, 6640422, 42076228, 2436500 ####[address] [address] MCH (RBC) [Entitic mass] 28.6 pg Normal 27.0-34.0 [facility] HemeAutoSS Comment on above: Performed By: #### 2 808369, 3669912, 64272414, 1329406 ####[facility] [address] [address] MCHC (RBC) [Mass/Vol] 33.7 g/dL Normal 31.4-36.0 [facility] C HemeAutoSS Comment on above: Performed By: #### 2 910393, 3724207, 14457428, 4134732 ####[place] [address] MCV (RBC) [Entitic vol] 84.7 fL Normal 80.0-100.0 F [facility] HemeAutoSS Comment on above: Performed By: #### 2 703665, 8292143, 62369342, 0392670 ####[place] [address] Platelet mean volume (Bld) [Entitic vol] 9.5 fL Normal 6.4-10.8 [facility]eAutoSS Comment on above: Performed By: #### 2 506043, 8770998, 68054042, 4314891 ####[place] [address] Platelets (Bld) [#/Vol] 216.0 E9/L Normal 150.0-500.0 [facility]eAutoSS Comment on above: Performed By: #### 2 492119, 3706131, 62093608, 2179240 ####[place] [address] RBC (Bld) [#/Vol] 4.1 E12/L Low 4.3-5.9 [facility]eAutoSS Comment on above: Performed By: #### 2 810417, 4348068, 94472988, 3957641 ####[address] [address] WBC corrected for nucl RBC Auto (Bld) [#/Vol] 10.3 E9/L Normal 4.0-11.0 [facility]eAutoSS Comment on above: Performed By: #### 2 030267, 1970983, 78891003, 1736645 ####[address] [place] [address] CHEMISTRYOrdered By: Lab ROP User on 12-20-2022 Glucose [Mass/Vol] 109 mg/dL High 55 - 99 mg/dL [facility] POC Subsection Comment on above: Result Comment: Gareth GARDINER POC Device SN [id number] Invalid Interpretation Code [facility] POC Subsection POC User ID [id number] Invalid Interpretation Code [facility] POC Subsection POC Username SAMANTHA LAMBERT Invalid Interpretation Code [facility] POC Subsection CHEMISTRYOrdered By: SYSTEM SYSTEM on 12-20-2022 Urea nitrogen/Creatinine [Mass ratio] 22 mg/mg High 10 - 20 [facility] [place] Remisol Capillary Glucose POCon 11-23 Glucose [Mass/Vol] 198 mg/dL High 55-99 [facility] Comment on above: Result Comment: Yazmin bri Meter Performed By: #### 2 [id number] ####[facility] [address] [place] [address] Glucose [Mass/Vol] 109 mg/dL High 55-99 [facility] Comment on above: Result Comment: Gareth GARDINER Performed By: #### 2 [id number] ####[facility] [address] [place] [address] Discharge Documentationon Discharge Documentation [id number]#1 .00CD:127 Normal [facility] Inpatient Patient Summaryon 12-20-2022 Inpatient Patient Summary [facility] Message from Medicareon 11-23 Message from Medicare [id number]# 1.00CD:127 Normal [facility] Monitor Recordon 12-20-2022 Monitor Record [id number]# 1.00CD:127 Normal [facility] Monitor Record [id number]# 1.00CD:127 Normal [facility] Monitor Record [id number]# 1.00CD:127 Normal [facility] Progress Note-Nurseon 2022 Progress Note-Nurse SBAR report called fanta Robert. Patient was transferred into wheelchair x2 stand pivot. Patient discharged to [facility] room 17. Transport by Samantha Lambert POCT. Normal [facility] Transfer Documentson 023 Transfer Documents [id number]#1 .00CD:127 Normal [facility] eGFROrdered By: SYSTEM SYSTE M on 12-20-2022 GFR/1.73 sq M.predicted among non-blacks MDRD (S/P/Bld) [Vol rate/Area] 77 mL/min/1.73 m2 Normal >=59 [facility] [place] Chem S Comment on above: Order Comment: Order added by Discern Expert. Result Comment: [employer] Sorter earnest kidney disease could be indicated at eGFR's of less than 60 mL/min/1.73m2. Kidney failure is indicated at less than 15 mL/min/1.73m2. Performed By: #### 2 713254, 2292594, 86117359, 4479622 ####[facility] [address] [place] [address] Auto Diffon 12-19-2022 Basophils/100 WBC (Bld) 0.4 % Normal 0.0-2.0 [facility] Comment on above: Order Comment: Order Added by Discern Expert. Performed By: #### 1 4820536, 3264986, 2978684, 3961629 ####[facility] [address] [place] [address] Basophils/Leukocytes Auto (Bld) [Pure # fraction] 0.0 E9/L Normal 0.0-0.2 [facility] Comment on above: Order Comment: Order Added by Discern Expert. Performed By: #### 1 0475944, 1521869, 5628258, 2067937 ####[facility] [address] [place] [address] Eosinophils/100 WBC (Bld) 4.2 % Normal 0.0-8.0 [facility] Comment on above: Order Comment: Order Added by Discern Expert. Performed By: #### 1 4632797, 7118292, 4080323, 3588391 ####[address] [place] [address] Eosinophils/Leukocytes Auto (Bld) [Pure # fraction] 0.6 E9/L High 0.0-0.5 [facility] Comment on above: Order Comment: Order Added by Bethany Expert. Performed By: #### 1 4355395, 2961265, 3315685, 1546862 ####[address] [address] Lymphocytes/100 WBC (Bld) 7.3 % Low 14.0-50.0 [facility] Comment on above: Order Comment: Order Added by Bethany Expert. Performed By: #### 1 5114713, 5405193, 9437408, 9947049 ####[address] [address] Lymphocytes/Leukocytes Auto (Bld) [Pure # fraction] 1.0 E9/L Normal 1.0-4.0 [facility] Comment on above: Order Comment: Order Added by Bethany Expert. Performed By: #### 1 8830631, 5700134, 1689316, 2372434 ####[address] [address] Monocytes/100 WBC (Bld) 6.5 % Normal 4.0-14.0 [facility] Comment on above: Order Comment: Order Added by Bethany Expert. Performed By: #### 1 1816457, 3557533, 1248185, 0355724 ####[address] [place] [address] Monocytes/Leukocytes Auto (Bld) [Pure # fraction] 0.9 E9/L Normal 0.2-1.0 [facility] Comment on above: Order Comment: Order Added by Bethany Expert. Performed By: #### 1 6795935, 9835524, 3690364, 4101483 ####[address] [address] Neutrophils/100 WBC (Bld) 81.6 % High 36.0-75.0 [facility] Comment on above: Order Comment: Order Added by Discern Expert. Performed By: #### 1 1583167, 8379947, 7675166, 1093115 ####[facility] [address] [place] [address] Neutrophils/Leukocytes Auto (Bld) [Pure # fraction] 10.7 E9/L High 2.0-7.5 [facility] Comment on above: Order Comment: Order Added by Discern Expert. Performed By: #### 1 6256678, 2527202, 6803094, 0204368 ####[facility] [address] [place] [address] BMPon 12-19-2022 Anion gap [Moles/Vol] 11 mmol/L Normal 6-16 [facility] Comment on above: Performed By: #### 1 3730940, 6585994, 2026816, 5641348 ####[facility] [address] [place] [address] Calcium [Mass/Vol] 8.5 mg/dL Low 8.9-11.1 [facility] Comment on above: Performed By: #### 1 1345967, 1209329, 8935417, 5189527 ####[facility] [address] [place] [address] Chloride [Moles/Vol] 103 mmol/L Normal 101-111 [facility] Comment on above: Performed By: #### 1 4232961, 8359896, 2463951, 8915326 ####[facility] [address] [place] [address] CO2 [Moles/Vol] 28 mmol/L Normal 21-31 [facility] Comment on above: Performed By: #### 1 0764905, 9010154, 8943695, 2104904 ####[facility] [address] [place] [address] Creatinine [Mass/Vol] 1.2 mg/dL Normal 0.5-1.3 [facility] Comment on above: Performed By: #### 1 5434964, 8108005, 1942518, 3064932 ####[facility] [address] [place] [address] Glucose [Mass/Vol] 86 mg/dL Normal 55-199 [facility] Comment on above: Result Comment: If t his glucose result represents a fasting glucose, interpretation should refer to the following reference range: 55-99 mg/dL Performed By: #### 1 6342063, 7252191, 5506233, 6746044 ####[facility] [address] [place] [address] Potassium [Moles/Vol] 4.5 mmol/L Normal 3.5-5.3 [facility] Comment on above: Performed By: #### 1 0103949, 8508954, 9724457, 2201767 ####[facility] [address] [place] [address] Sodium [Moles/Vol] 137 mmol/L Normal 135-145 [facility] Comment on above: Performed By: #### 1 8079549, 9185174, 5646916, 3887839 ####[facility] [address] [place] [address] Urea nitrogen [Mass/Vol] 35 mg/dL High 5-21 [facility] Comment on above: Performed By: #### 1 4889771, 0483087, 3695344, 4114874 ####[facility] [address] [place] [address] Urea nitrogen/Creatinine [Mass ratio] 29 No Units High 10-20 [facility] Comment on above: Performed By: #### 1 8707388, 0604116, 4163039, 4461989 ####[facility] [address] [place] [address] CBC w/ Auto Diffon 3 Erythrocyte distribution width (RBC) [Ratio] 15.0 % High 10.9-14.2 [facility] Comment on above: Performed By: #### 1 3955603, 8660137, 1435082, 5491127 ####[facility] [address] [place] [address] Hematocrit (Bld) [Volume fraction] 38.4 % Normal 37.7-49.0 [facility] Comment on above: Performed By: #### 1 1417221, 3548178, 5459856, 6033227 ####[address] [address] Hemoglobin (Bld) [Mass/Vol] 12.7 g/dL Low 13.5-17.5 [facility] Comment on above: Performed By: #### 1 1302835, 5885015, 2938578, 0664399 ####[place] [address] MCH (RBC) [Entitic mass] 27.9 pg Normal 27.0-34.0 [facility] Comment on above: Performed By: #### 1 3846200, 4218019, 3093663, 7069104 ####[place] [address] [address] MCHC (RBC) [Mass/Vol] 32.9 g/dL Normal 31.4-36.0 [facility] Comment on above: Performed By: #### 1 9211466, 2117237, 8212576, 2875166 ####[address] [address] MCV (RBC) [Entitic vol] 84.8 fL Normal 80.0-100.0 [facility] Comment on above: Performed By: #### 1 1090173, 9705417, 8199124, 1384740 ####[address] [address] Platelet mean volume (Bld) [Entitic vol] 9.5 fL Normal 6.4-10.8 [facility] Comment on above: Performed By: #### 1 8631876, 2445431, 4196504, 2872516 ####[address] [address] Platelets (Bld) [#/Vol] 230.0 E9/L Normal 150.0-500.0 [facility] Comment on above: Performed By: #### 1 2341021, 0953083, 9222921, 6990359 ####[facility] [address] [place] [address] RBC (Bld) [#/Vol] 4.5 E12/L Normal 4.3-5.9 [facility] Comment on above: Performed By: #### 1 0421111, 9037367, 1231333, 2889634 ####[facility] [address] [place] [address] WBC corrected for nucl RBC Auto (Bld) [#/Vol] 13.1 E9/L High 4.0-11.0 [facility] Comment on above: Performed By: #### 1 9420393, 5824558, 7715938, 7361356 ####[facility] [address] [place] [address] CHEMISTRYOrdered By: Lab ROP User on 12-19-2022 Glucose [Mass/Vol] 210 mg/dL High 55 - 99 mg/dL [facility] [place] POC Subsection Comment on above: Result Comment: Gareth guerrero RN/ POC Device SN [id number] Invalid Interpretation Code [facility] [place] POC Subsection POC User ID [id number] Invalid Interpretation Code [facility] [place] POC Subsection POC Username SHER GAVIRIA Invalid Interpretation Code [facility] [place] POC Subsection Glucose [Mass/Vol] 111 mg/dL High 55 - 99 mg/dL [facility] [place] POC Subsection Comment on above: Result Comment: Gareth guerrero RN/ POC Device SN [id number] Invalid Interpretation Code [facility] [place] POC Subsection POC User ID [id number] Invalid Interpretation Code [facility] [place] POC Subsection POC Username KELLEN HERNANDEZ Invalid Interpretation Code [facility] [place] POC Subsection CHEMISTRYOrdered By: SYSTEM SYSTEM on 12-19-2022 Anion gap [Moles/Vol] 11 mmol/L Normal 6 - 16 mEq/L [facility] [place] Remisol Calcium [Mass/Vol] 8.5 mg/dL Low 8.9 - 11. 1 mg/dL [facility] Remisol Chloride [Moles/Vol] 103 mmol/L Normal 101 - 1 11 mmol/L [facility] Remisol CO2 [Moles/Vol] 28 mmol/L Normal 21 - 31 mmol/L [facility] [place] Remisol Creatinine [Mass/Vol] 1.2 mg/dL Normal 0.5 - 1.3 mg/dL [facility] [place] Remisol GFR/1.73 sq M.predicted among non-blacks MDRD (S/P/Bld) [Vol rate/Area] 62 mL/min/1.73 m2 Normal >=59mL/min/ 1.73 m2 [facility] [place] Chem S Glucose [Mass/Vol] 86 mg/dL Normal 55 - 199 mg/dL [facility] [place] Remisol Potassium [Moles/Vol] 4.5 mmol/L Normal 3.5 - 5.3 mmol/L [facility] [place] Remisol Sodium [Moles/Vol] 137 mmol/L Normal 135 - 145 mmol/L [facility] [place] Remisol Urea nitrogen [Mass/Vol] 35 mg/dL High 5 - 21 mg/dL [facility] [place] Remisol Urea nitrogen/Creatinine [Mass ratio] 29 mg/mg High 10 - 20 [facility] [place] Remisol Capillary Glucose POCon 11-22 Glucose [Mass/Vol] 210 mg/dL High 55-99 [facility] Comment on above: Result Comment: Gareth GARDINER Performed By: #### 2 [id number] ####[facility] [address] [place] [address] Glucose [Mass/Vol] 111 mg/dL High 55- [facility] Comment on above: Result Comment: Gareth GARDINER Performed By: #### 2 30394449 ####[facility] [address] [place] [address] Glucose [Mass/Vol] 201 mg/dL High 55- [facility] Comment on above: Result Comment: Gareth GARDINER Performed By: #### 2 66377483 ####[facility] [address] [place] [address] Glucose [Mass/Vol] 93 mg/dL Normal 55-99 [facility] Comment on above: Result Comment: Gareth GARDINER Performed By: #### 2 88184037 ####[facility] [address] [place] [address] HEMATOLOGYOrdered By: SYSTEM SYSTEM on 12-19-2022 Basophils/100 [...] 9.5 fL Normal 6.4 - 10.8 fL [facility] [place] HemeAutoSS Platelets (Bld) [#/Vol] 230.0 E9/L Normal 150. 0 - 500.0 E9/L [facility] [place] HemeAutoSS RBC (Bld) [#/Vol] 4.5 E12/L Normal 4.3 - 5.9 E12/L [facility] [place] HemeAutoSS WBC corrected for nucl RBC Auto (Bld) [#/Vol] 13.1 E9/L High 4.0 - 11.0 E9/L [facility] [place] HemeAutoSS Monitor Recordon 12-19-2022 Monitor Record [id number]# 1.00CD:127 Normal [facility] Monitor Record [id number]# 1.00CD:127 Normal [facility] Progress Note-Physicianon Progress Note-Physician Normal [facility] Comment on above: Result Comment: Elec tronically Signed By: MICHAEL POTTS, Jamir\.br\Date and Time Signed: 12/19/22 09:47 EDT eGFRon 12-19-2022 GFR/1.73 sq M.predicted among non-blacks MDRD (S/P/Bld) [Vol rate/Area] 62 mL/min/1.73 m2 Normal >=59 [facility] Comment on above: Order Comment: Order added by Discern Expert. Result Comment: [employer] Sorter earnest kidney disease could be indicated at eGFR's of less than 60 mL/min/1.73m2. Kidney failure is indicated at less than 15 mL/min/1.73m2. Performed By: #### 1 4569961, 3814869, 9877985, 0448999 ####[facility] [address] [place] [address] Auto Diffon 12-18-2022 Basophils/100 WBC (Bld) 0.4 % Normal 0.0-2.0 [facility] Comment on above: Order Comment: Order Added by Discern Expert. Performed By: #### 2 194796, 8980553 ####[facility] [address] [place] [address] Basophils/Leukocytes Auto (Bld) [Pure # fraction] 0.1 E9/L Normal 0.0-0.2 [facility] Comment on above: Order Comment: Order Added by Discern Expert. Performed By: #### 2 733313, 0202443 ####[facility] [address] [place] [address] Eosinophils/100 WBC (Bld) 2.8 % Normal 0.0-8.0 [facility] Comment on above: Order Comment: Order Added by Discern Expert. Performed By: #### 2 887531, 1361473 ####[facility] [address] [place] [address] Eosinophils/Leukocytes Auto (Bld) [Pure # fraction] 0.4 E9/L Normal 0.0-0.5 [facility] Comment on above: Order Comment: Order Added by Discern Expert. Performed By: #### 2 856602, 0154041 ####[address] [place] [address] Lymphocytes/100 WBC (Bld) 9.0 % Low 14.0-50.0 [facility] Comment on above: Order Comment: Order Added by Discern Expert. Performed By: #### 2 250710, 2766057 ####[address] [address] Lymphocytes/Leukocytes Auto (Bld) [Pure # fraction] 1.3 E9/L Normal 1.0-4.0 [facility] Comment on above: Order Comment: Order Added by Discern Expert. Performed By: #### 2 609402, 8273971 ####[facility] [address] [place] [address] Monocytes/100 WBC (Bld) 8.3 % Normal 4.0-14.0 [facility] Comment on above: Order Comment: Order Added by Discern Expert. Performed By: #### 2 861513, 2931657 ####[facility] [address] [place] [address] Monocytes/Leukocytes Auto (Bld) [Pure # fraction] 1.3 E9/L High 0.2-1.0 [facility] Comment on above: Order Comment: Order Added by Discern Expert. Performed By: #### 2 895573, 7782285 ####[address] [place] [address] Neutrophils/100 WBC (Bld) 79.5 % High 36.0-75.0 [facility] Comment on above: Order Comment: Order Added by Discern Expert. Performed By: #### 2 565123, 1361308 ####[address] [address] Neutrophils/Leukocytes Auto (Bld) [Pure # fraction] 11.9 E9/L High 2.0-7.5 [facility] Comment on above: Order Comment: Order Added by Bethany Expert. Performed By: #### 2 635517, 0497506 ####[address] [address] Basophils/100 WBC (Bld) 0.6 % Normal 0.0-2.0 [facility] Comment on above: Order Comment: Order Added by Bethany Expert. Performed By: #### 1 9408031, 3862579, 74805649, 4967433, 43236657, 21298898, 0560527 ####[address] [address] Basophils/Leukocytes Auto (Bld) [Pure # fraction] 0.1 E9/L Normal 0.0-0.2 [facility] Comment on above: Order Comment: Order Added by Bethany Expert. Performed By: #### 1 5588605, 2514520, 51500434, 3006431, 97468192, 57905162, 3496305 ####[address] [address] Eosinophils/100 WBC (Bld) 2.0 % Normal 0.0-8.0 [facility] Comment on above: Order Comment: Order Added by Bethany Expert. Performed By: #### 1 0075571, 4214381, 59584481, 4418646, 40959464, 46917142, 9374268 ####[address] [place] [address] Eosinophils/Leukocytes Auto (Bld) [Pure # fraction] 0.3 E9/L Normal 0.0-0.5 [facility] Comment on above: Order Comment: Order Added by Discern Expert. Performed By: #### 1 0878104, 4676312, 66383383, 2505489, 10178126, 70055880, 0388409 ####[address] [place] [address] Lymphocytes/100 WBC (Bld) 7.6 % Low 14.0-50.0 [facility] Comment on above: Order Comment: Order Added by Discern Expert. Performed By: #### 1 5282861, 8763199, 54414235, 1854949, 39195653, 55759730, 0950740 ####[address] [address] Lymphocytes/Leukocytes Auto (Bld) [Pure # fraction] 1.3 E9/L Normal 1.0-4.0 [facility] Comment on above: Order Comment: Order Added by Discern Expert. Performed By: #### 1 4744537, 1640714, 22604103, 7651978, 64683528, 70944968, 4745011 ####[address] [address] Monocytes/100 WBC (Bld) 7.8 % Normal 4.0-14.0 [facility] Comment on above: Order Comment: Order Added by Discern Expert. Performed By: #### 1 7294133, 4837481, 01349429, 0063369, 65777774, 27373532, 7607023 ####[address] [place] [address] Monocytes/Leukocytes Auto (Bld) [Pure # fraction] 1.3 E9/L High 0.2-1.0 [facility] Comment on above: Order Comment: Order Added by Discern Expert. Performed By: #### 1 1834558, 3524802, 22623383, 0467271, 17662829, 25795007, 8760897 ####[facility] [address] [place] [address] Neutrophils/100 WBC (Bld) 82.0 % High 36.0-75.0 [facility] Comment on above: Order Comment: Order Added by Discern Expert. Performed By: #### 1 7629828, 5095691, 61546439, 4072994, 60236639, 39298036, 9302103 ####[facility] [address] [place] [address] Neutrophils/Leukocytes Auto (Bld) [Pure # fraction] 13.7 E9/L High 2.0-7.5 [facility] Comment on above: Order Comment: Order Added by Discern Expert. Performed By: #### 1 2990508, 3030574, 42046524, 5249742, 88884136, 72227190, 8873651 ####[facility] [address] [place] [address] BMPon 12-18-2022 Creatinine [Mass/Vol] 1.6 mg/dL High 0.5-1.3 [facility] Comment on above: Performed By: #### 2 093201, 8215219, 6429288539, 89371316, 66197815 ####[facility] [address] [place] [address] Urea nitrogen [Mass/Vol] 47 mg/dL High 5-21 [facility] Comment on above: Performed By: #### 2 771376, 4662834, 6450320999, 18964901, 18458355 ####[facility] [address] [place] [address] Urea nitrogen/Creatinine [Mass ratio] 29 No Units High 10-20 [facility] Comment on above: Performed By: #### 2 544059, 1035610, 7649246794, 75645465, 01601532 ####[facility] [address] [place] [address] Anion gap [Moles/Vol] 12 mmol/L Normal 6-16 [facility] Comment on above: Performed By: #### 2 230602, 7923010, 1445670104, 31404266, 33195222 ####[facility] [address] [place] [address] Calcium [Mass/Vol] 8.7 mg/dL Low 8.9-11.1 [facility] Comment on above: Performed By: #### 2 655702, 2623208, 2790267354, 79172050, 51597182 ####[facility] [address] [place] [address] Chloride [Moles/Vol] 97 mmol/L Low 101-111 [facility] Comment on above: Performed By: #### 2 343243, 2839687, 7679133029, 59722204, 88951022 ####[facility] [address] [place] [address] CO2 [Moles/Vol] 32 mmol/L High 21-31 [facility] Comment on above: Performed By: #### 2 441349, 8224740, 4012522478, 09061413, 42104609 ####[facility] [address] [place] [address] Glucose [Mass/Vol] 131 mg/dL Normal 55-199 [facility] Comment on above: Result Comment: If t his glucose result represents a fasting glucose, interpretation should refer to the following reference range: 55-99 mg/dL Performed By: #### 2 432286, 8616904, 9073504590, 40139906, 77899630 ####[facility] [address] [address] Potassium [Moles/Vol] 3.7 mmol/L Normal 3.5-5.3 [facility] Comment on above: Performed By: #### 2 439056, 1924998, 4934213095, 55044362, 79666742 ####[facility] [address] [place] [address] Sodium [Moles/Vol] 137 mmol/L Normal 135-145 [facility] Comment on above: Performed By: #### 2 241673, 0914112, 7280787241, 47893323, 69246119 ####[facility] [address] [place] [address] Creatinine [Mass/Vol] 1.8 mg/dL High 0.5-1.3 [facility] Comment on above: Performed By: #### 1 2926629, 5623857, 38978800, 1016046, 21628368, 52360438, 1948326 ####[facility] [address] [place] [address] Urea nitrogen [Mass/Vol] 49 mg/dL High 5-21 [facility] Comment on above: Performed By: #### 1 5530228, 4608601, 76418418, 7525980, 37999977, 58914180, 8592517 ####[facility] [address] [place] [address] Urea nitrogen/Creatinine [Mass ratio] 27 No Units High 10-20 [facility] Comment on above: Performed By: #### 1 1174104, 4172909, 53347423, 6071043, 05385721, 45598255, 2198271 ####[facility] [address] [place] [address] Anion gap [Moles/Vol] 18 mmol/L High 6-16 [facility] Comment on above: Performed By: #### 1 8252212, 3969446, 13897352, 8138998, 10422815, 06836115, 8251908 ####[facility] [address] [place] [address] Calcium [Mass/Vol] 9.3 mg/dL Normal 8.9-11.1 [facility] Comment on above: Performed By: #### 1 5759766, 9668578, 12938106, 7204546, 75901223, 95153646, 9236680 ####[facility] [address] [place] [address] Chloride [Moles/Vol] 93 mmol/L Low 101-111 [facility] Comment on above: Performed By: #### 1 7684924, 1288466, 20806374, 4452702, [id number], [id number], 1325263 ####[facility] [address] [place] [address] CO2 [Moles/Vol] 29 mmol/L Normal 21-31 [facility] Comment on above: Performed By: #### 1 8876376, 5264703, 24423961, 1679974, 55289944, 97830781, 4281305 ####[facility] [address] [place] [address] Glucose [Mass/Vol] 137 mg/dL Normal 55-199 [facility] Comment on above: Result Comment: If t his glucose result represents a fasting glucose, interpretation should refer to the following reference range: 55-99 mg/dL Performed By: #### 1 6380695, 1072316, 22013595, 7939606, 96050501, 95604839, 6512541 ####[facility] [address] [place] [address] Potassium [Moles/Vol] 4.0 mmol/L Normal 3.5-5.3 [facility] Comment on above: Performed By: #### 1 7253513, 7291212, 50800789, 0104140, 16504165, 01381030, 2468287 ####[facility] [address] [place] [address] Sodium [Moles/Vol] 136 mmol/L Normal 135-145 [facility] Comment on above: Performed By: #### 1 1907062, 3651170, 81407066, 1443381, 67777330, 21379664, 4416384 ####[facility] [address] [place] [address] BNPon 12-18-2022 Int Ctr BNP Pass Normal [facility] Comment on above: Performed By: #### 1 4590327, 4702778, 43431248, 4583226, 05846431, 63809242, 4704695 ####[address] [place] [address] Natriuretic peptide B (Bld) [Mass/Vol] 219 pg/mL High 5-80 [facility] Comment on above: Performed By: #### 1 1921535, 8323658, 16407767, 4512100, 74688871, 77703129, 5086414 ####[address] [address] CBC w/ Auto Diffon Erythrocyte distribution width (RBC) [Ratio] 14.8 % High 10.9-14.2 [facility] Comment on above: Performed By: #### 2 699479, 5855782 ####[place] [address] Hematocrit (Bld) [Volume fraction] 37.8 % Normal 37.7-49.0 [facility] Comment on above: Performed By: #### 2 919537, 4309322 ####[place] [address] Hemoglobin (Bld) [Mass/Vol] 12.7 g/dL Low 13.5-17.5 [facility] Comment on above: Performed By: #### 2 774900, 7237778 ####[address] [address] MCH (RBC) [Entitic mass] 28.3 pg Normal 27.0-34.0 [facility] Comment on above: Performed By: #### 2 801293, 9785806 ####[address] [address] MCHC (RBC) [Mass/Vol] 33.6 g/dL Normal 31.4-36.0 [facility] Comment on above: Performed By: #### 2 347265, 0447211 ####[address] [address] MCV (RBC) [Entitic vol] 84.2 fL Normal 80.0-100.0 [facility] Comment on above: Performed By: #### 2 326778, 8128848 ####[address] [address] Platelet mean volume (Bld) [Entitic vol] 9.2 fL Normal 6.4-10.8 [facility] Comment on above: Performed By: #### 2 587758, 3005289 ####[address] [address] Platelets (Bld) [#/Vol] 219.0 E9/L Normal 150.0-500.0 [facility] Comment on above: Performed By: #### 2 919917, 0843882 ####[place] [address] RBC (Bld) [#/Vol] 4.5 E12/L Normal 4.3-5.9 [facility] Comment on above: Performed By: #### 2 223250, 3839289 ####[place] [address] WBC corrected for nucl RBC Auto (Bld) [#/Vol] 15.0 E9/L High 4.0-11.0 [facility] Comment on above: Performed By: #### 2 434415, 8514143 ####[place] [address] Erythrocyte distribution width (RBC) [Ratio] 14.9 % High 10.9-14.2 [facility] Comment on above: Performed By: #### 1 8027422, 2987126, 59606939, 3910580, 70975126, 61838803, 8330895 ####[address] [address] Hematocrit (Bld) [Volume fraction] 42.8 % Normal 37.7-49.0 [facility] Comment on above: Performed By: #### 1 1941568, 6736758, 97036393, 5943242, 52474657, 64848091, 2768442 ####[facility] [address] [place] [address] Hemoglobin (Bld) [Mass/Vol] 14.3 g/dL Normal 13.5-17.5 [facility] Comment on above: Performed By: #### 1 3827500, 6777856, 11514441, 1069673, 88121417, 46343706, 1749930 ####[facility] [address] [place] [address] MCH (RBC) [Entitic mass] 28.1 pg Normal 27.0-34.0 [facility] Comment on above: Performed By: #### 1 0716510, 6258093, 61615424, 8770379, 77639920, 95910171, 3120092 ####[place] [address] MCHC (RBC) [Mass/Vol] 33.3 g/dL Normal 31.4-36.0 [facility] Comment on above: Performed By: #### 1 5214039, 2813727, 48264363, 4475236, 12023691, 70756548, 9522999 ####[address] [address] MCV (RBC) [Entitic vol] 84.3 fL Normal 80.0-100.0 [facility] Comment on above: Performed By: #### 1 1025112, 3832522, 54242972, 3168115, 43277335, 23908413, 4532951 ####[address] [place] [address] Platelet mean volume (Bld) [Entitic vol] 9.8 fL Normal 6.4-10.8 [facility] Comment on above: Performed By: #### 1 0082573, 5883520, 63117659, 1600831, 70152271, 30082045, 1484483 ####[address] [place] [address] Platelets (Bld) [#/Vol] 234.0 E9/L Normal 150.0-500.0 [facility] Comment on above: Performed By: #### 1 0639163, 1443056, 23872049, 4117553, 35094011, 49695259, 9703871 ####[facility] [address] [place] [address] RBC (Bld) [#/Vol] 5.1 E12/L Normal 4.3-5.9 [facility] Comment on above: Performed By: #### 1 6053337, 8786213, 44806278, 2585706, 56305189, 91609373, 2731502 ####[facility] [address] [place] [address] WBC corrected for nucl RBC Auto (Bld) [#/Vol] 16.7 E9/L High 4.0-11.0 [facility] Comment on above: Result Comment: Slid e reviewed by JENNIFER. Performed By: #### 1 9224727, 7800163, 47789189, 1699264, 61931584, 25813282, 6370163 ####[facility] [address] [place] [address] CHEMISTRYOrdered By: SYSTEM SYSTEM on 12-18-2022 Troponin [...] 44 mL/min/1.73 m2 Low >=59mL/min/ 1.73 m2 [facility] Chem S Glucose [Mass/Vol] 131 mg/dL Normal 55 - 199 mg/dL FT Remisol Potassium [Moles/Vol] 3.7 mmol/L Normal 3.5 - 5.3 mmol/L FT Remisol Procalcitonin 0.09 ng/mL Normal 0.00 - 0.50 ng/mL [facility] Remisol Sodium [Moles/Vol] 137 mmol/L Normal 135 - 145 mmol/L [facility] [facility] Remisol Troponin I.cardiac [Mass/Vol] 22.50 pg/mL Normal 15.90 - 38.40 pg/mL [facility] [place] Remisol Urea nitrogen [Mass/Vol] 47 mg/dL High 5 - 21 mg/dL [facility] Remisol Urea nitrogen/Creatinine [Mass ratio] 29 mg/mg High 10 - 20 [facility] [place] Remisol CHEMISTRYOrdered By: Yanet Apodaca on 12-18-2022 Troponin I.cardiac [Mass/Vol] 18.80 pg/mL Normal 15.90 - 38.40 pg/mL [facility] Remisol Natriuretic peptide B (Bld) [Mass/Vol] 219 pg/mL High 5 - 80 pg/mL [facility] HemeManSS CKon 12-18-2022 CK [Catalytic activity/Vol] 55 Int._Unit/L Normal 14-261 [facility] Comment on above: Performed By: #### 2 591582, 1504862, 3897006748, 10613063, 67614246 ####[facility] [address] [place] [address] COAGULATIONOrdered By: Rachael Apodaca on 12-18-2022 aPTT Coag (PPP) [Time] 30.6 s Normal 25.1 - 36.5 second(s) [facility] Auto Coag INR Coag (PPP) [Relative time] 1.1 {INR} Invalid Interpretation Code FT Auto Coag PT Coag (PPP) [Time] 12.5 s Normal 9.4 - 1 2.5 second(s) FT Auto Coag CT Head or Brain w/o Contras ton 12-18-2022 CT Head or Brain w/o Contrast Normal [facility] CT Spine Cervical w/o Contra ston 12-18-2022 CT Spine Cervical w/o Contrast Normal [facility] Capillary Glucose POCon 11-22 Glucose [Mass/Vol] 212 mg/dL High 55-99 [facility] Comment on above: Result Comment: Gareth GARDINER Performed By: #### 2 [id number] ####[facility] [address] [place] [address] Glucose [Mass/Vol] 97 mg/dL Normal 55-99 [facility] Comment on above: Result Comment: Yazmin bri Meter Performed By: #### 2 36666579 ####[facility] [address] [place] [address] Glucose [Mass/Vol] 119 mg/dL High 55-99 [facility] Comment on above: Result Comment: Gareth GARDINER Performed By: #### 2 99800549 ####[facility] [address] [place] [address] Glucose [Mass/Vol] 131 mg/dL High 55-99 [facility] Comment on above: Result Comment: Gareth GARDINER Performed By: #### 2 21199386 ####[facility] [address] [place] [address] Consent for Treatmenton 11-22 Consent for Treatment [id number]# 1.00CD:127 Normal [facility] ED Clinical Summaryon 2022 ED Clinical Summary Normal [facility] ED Note-Physicianon 12-19-19 23 ED Note-Physician Normal [facility] Comment on above: Result Comment: Elec tronically Signed By: Guilherme POTTS, Malcom\.br\Date and Time Signed: 12/18/22 04:33 EDT ED Patient Education Noteon 12-18-2022 ED Patient Education Note Normal [facility] ED Patient Summaryon 023 ED Patient Summary Normal [facility] ED Traumaon 12-18-2022 ED Trauma [id number]# 1.00CD:127 Normal [facility] HEMATOLOGYOrdered By: SYSTEM SYSTEM on [...] 33.6 g/dL Normal 31.4 - 36.0 gm/dL [facility] HemeAutoSS MCV (RBC) [Entitic vol] 84.2 fL Normal 80.0 - 100.0 fL FT HemeAutoSS Platelet mean volume (Bld) [Entitic vol] 9.2 fL Normal 6.4 - 10.8 fL [facility] HemeAutoSS Platelets (Bld) [#/Vol] 219.0 E9/L Normal 150. 0 - 500.0 E9/L [facility] HemeAutoSS RBC (Bld) [#/Vol] 4.5 E12/L Normal 4.3 - 5.9 E12/L [facility] HemeAutoSS WBC corrected for nucl RBC Auto (Bld) [#/Vol] 15.0 E9/L High 4.0 - 11.0 E9/L [facility] HemeAutoSS Insurance Correspondence Off iceon 12-18-2022 Insurance Correspondence Office [id number]#1 .00CD:127 Normal [facility] Interdisciplinary Note - Santosh e Manageron 12-18-2022 Interdisciplinary Note - Snipper [facility] Comment on above: Result Comment: Elec tronically Signed By: Lucero Watson\.br\Date and Time Signed: 12/18/22 14:57 EDT Interdisciplinary Note - Dejuan singon 12-18-2022 Interdisciplinary Note - Nursing Patient he is confused and he does not able to answer my questions. informed staff in [facility] to send current medication list in fax.3N Normal [facility] Interdisciplinary Note - PTo n 12-18-2022 Interdisciplinary Note - PT Normal [facility] Laboratory - Microbiology an d Antimicrobial susceptibilityOrdered By: Karen Vergara on 12-18-2022 Bacteria identified Cx Nom (U) 10,000 cfu/ml Staphylococcus species Continuing incubation [facility] Monitor Recordon 12-18-2022 Monitor Record [id number]# 1.00CD:127 Normal [facility] No Panel InformationOrdered By: Karen Vergara on 12-18-2022 Blood Culture Charcoal Streptococcus spe cies Staphylococcus species coagulase negative In 1 of 2 blood culture bottles drawn. Isolated from aerobic bottle Preliminary gram stain results of gram positive cocci in clusters Result called to Dr. Mckinney by and results read back for confirmation on 12/19/2022 09:39:39 [facility] No Panel InformationOrdered By: [facility] on 12-18-2022 Blood Culture Charcoal No growth at 2 da ys. Final to follow at 7 days. [facility] PT & PTTon 12-18-2022 aPTT Coag (PPP) [Time] 30.6 second(s) Normal 25.1-36.5 [facility] Comment on above: Result Comment: [...] the same coagulation reagent and instrumentation as [facility]. Currently there are no coagulation studies available worldwide for children to 14 days, and no normal ranges. Heparin therapeutic range (represented by Anti-Factor Xa activity of 0.2 - 0.4 U/mL) corresponds to PTT of 56.6 - 109.0 sec. Performed By: #### 1 1424515, 6098714, 34869234, 1774504, 39363593, 46351907, 9462204 ####[facility] [address] [place] [address] INR Coag (PPP) [Relative time] 1.1 {INR} Invalid Interpretation Code [facility] Comment on above: Result Comment: INR results are specifically intended to assess patients stabilized on long-term Anticoagulation therapy suggested INR?s ?Less Intensive Anticoagulation? 2.0 ? 3.0Conventional Range 3.0 ? 4.5 Performed By: #### 1 1507377, 4104294, 37713327, 7412040, 35590001, 99684703, 1997710 ####[facility] [address] [place] [address] PT Coag (PPP) [Time] 12.5 second(s) Normal 9.4-12.5 [facility] Comment on above: Result Comment: [...] the same coagulation reagent and instrumentation as [facility]. Currently there are no coagulation studies available worldwide for children to 14 days, and no normal ranges. Performed By: #### 1 3705069, 2184080, 92052735, 3248790, 31884316, 47938201, 8469270 ####[facility] [address] [place] [address] Procalcitoninon 12-18-2022 Procalcitonin .09 ng/mL Normal .00-.50 [facility] Comment on above: Result Comment: <0.5 ng/mL [...] to 24 hours. Performed By: #### 2 989363, 3167924, 8757552388, 07881583, 75294173 ####[facility] [address] [place] [address] RAD - Preliminary Cat Scan R eporton 12-18-2022 RAD - Preliminary Cat Scan Report [id number]# 1.00CD:127 Normal [facility] Troponin 0 Hr.on 12-18-2022 Troponin I.cardiac [Mass/Vol] 23.50 pg/mL Normal 15.90-38.40 [facility] Comment on above: Result Comment: The 95% CI (Confidence Interval) PPV (Positive Predictive Value) for myocardial infarction in females is 38 pg/mL, in males 51 pg/mL. The results should be used in conjunction with clinical conditions of myocardial infarction.([employer] High Sensitivity Troponin I Instructions For Use, [employer], December 2017) Performed By: #### 1 3391512, 8165012, 63477633, 4037793, 72311402, 72588337, 4963248 ####[facility] [address] [place] [address] Troponin 3 Hr.on 12-18-2022 Troponin I.cardiac [Mass/Vol] 18.80 pg/mL Normal 15.90-38.40 [facility] Comment on above: Result Comment: The 95% CI (Confidence Interval) PPV (Positive Predictive Value) for myocardial infarction in females is 38 pg/mL, in males 51 pg/mL. The results should be used in conjunction with clinical conditions of myocardial infarction.([employer] High Sensitivity Troponin I Instructions For Use, [employer], December 2017) Performed By: #### 1 7529417 ####[facility] [address] [place] [address] Troponin 6 Hr.on 12-18-2022 Troponin I.cardiac [Mass/Vol] 22.50 pg/mL Normal 15.90-38.40 [facility] Comment on above: Result Comment: The 95% CI (Confidence Interval) PPV (Positive Predictive Value) for myocardial infarction in females is 38 pg/mL, in males 51 pg/mL. The results should be used in conjunction with clinical conditions of myocardial infarction.([employer] High Sensitivity Troponin I Instructions For Use, [employer], December 2017) Performed By: #### 2 318483, 4978155, 6407079911, 90561095, 23968929 ####[facility] [address] [place] [address] Troponin 9 Hr.on 12-18-2022 Troponin I.cardiac [Mass/Vol] 18.90 pg/mL Normal 15.90-38.40 [facility] Comment on above: Result Comment: The 95% CI (Confidence Interval) PPV (Positive Predictive Value) for myocardial infarction in females is 38 pg/mL, in males 51 pg/mL. The results should be used in conjunction with clinical conditions of myocardial infarction.([employer] High Sensitivity Troponin I Instructions For Use, Claudia [place], December 2017) Performed By: #### 1 4305236 ####[address] [address] UA With Cult Reflexon 2022 Bacteria LM Ql (Urine sed) TRACE Normal Trace [facility] Comment on above: Performed By: #### 1 9257960, 6486647 ####[address] [address] Bilirubin Ql (U) Negative Normal Negative [facility] Comment on above: Performed By: #### 1 9651315, 2243726 ####[address] [address] Clarity (U) CLEAR Normal Clear [facility] Comment on above: Performed By: #### 1 2069904, 0838566 ####[address] [address] Color (U) YELLOW Normal Yellow [facility] Comment on above: Performed By: #### 1 8261443, 3407178 ####[address] [address] Epithelial cells.squamous LM.HPF (Urine sed) [#/Area] 0-2 Normal 0-2 [facility] Comment on above: Performed By: #### 1 2128486, 4244623 ####[address] [address] Glucose Test strip (U) [Mass/Vol] Negative Normal Negative [facility] Comment on above: Performed By: #### 1 1541126, 4286353 ####[facility] [address] [place] [address] Hemoglobin Ql (U) TRACE Abnormal Negative [facility] Comment on above: Performed By: #### 1 2583056, 1587531 ####[facility] [address] [place] [address] Ketones (U) [Mass/Vol] Negative Normal Negative [facility] Comment on above: Performed By: #### 1 6238162, 6163964 ####[facility] [address] [place] [address] Lismore.plasma/Lismore.R BC (Bld) [Mass ratio] 0-3 Normal 0-3 [facility] Comment on above: Performed By: #### 1 9045709, 5780351 ####[facility] [address] [place] [address] Nitrite Ql (U) Negative Normal Negative [facility] Comment on above: Performed By: #### 1 2180171, 8638704 ####[facility] [address] [place] [address] pH (U) 6.5 [pH] Invalid Interpretation Code 5.0-9.0 [facility] Comment on above: Performed By: #### 1 3472609, 8290640 ####[facility] [address] [place] [address] Protein (U) [Mass/Vol] Negative Normal Negative [facility] Comment on above: Performed By: #### 1 0685786, 9989671 ####[facility] [address] [place] [address] Specific gravity (U) [Rel density] 1.020 Invalid Interpretation Code 1.005-1.030 [facility] Comment on above: Performed By: #### 1 5162597, 1202576 ####[facility] [address] [place] [address] Type of Urine collection method Clean Catch Normal [facility] Comment on above: Performed By: #### 1 0604640, 7147426 ####[facility] [address] [place] [address] Urobilinogen Qn (U) 0.2 {Lei'U}/dL Normal 0.0-1.0 [facility] Comment on above: Performed By: #### 1 7555514, 7248180 ####[facility] [address] [place] [address] WBC Auto Ql (U) 3+ Abnormal Negative [facility] Comment on above: Performed By: #### 1 0840808, 9376405 ####[facility] [address] [place] [address] WBC LM.HPF (Urine sed) [#/Area] /[HPF] Abnormal 0-5 [facility] Comment on above: Performed By: #### 1 0363577, 4176660 ####[facility] [address] [place] [address] URINALYSISOrdered By: Houston Castillo on 12-18-2022 Bacteria [...] PM) Normal Negative [facility] UA Auto SS Lismore.plasma/Lismore.R BC (Bld) [Mass ratio] 0-3 /HPF Normal 0-3/HPF [facility] UA Au to SS Nitrite Ql (U) Negative (12/18/22 4:45 PM) Normal Negative [facility] UA Auto SS pH (U) 6.5 *NA* (12/18/22 4:45 PM) Invalid Interpretation Code 5.0 - 9.0 FT UA Auto SS Protein (U) [Mass/Vol] Negative (12/18/22 4:45 PM) Normal Negative [facility] UA Auto SS Specific gravity (U) [Rel density] 1.020 *NA* (12/18/22 4:45 PM) Invalid Interpretation Code 1.005 - 1.030 FT UA Auto SS UA Spec Desc Clean Catch (12/18/22 4:45 PM) Normal [facility] UA Auto SS Urobilinogen Qn (U) 0.1673055 {Lei'U}/dL Normal 0.0 - 1.0 EU/dL FT UA Auto SS WBC Auto Ql (U) 3+ *ABN* (12/18/22 4:45 PM) Invalid Interpretation Code Negative [facility] UA Auto SS WBC LM.HPF (Urine sed) [#/Area] /[HPF] Invalid Interpretation Code 0-5/HPF FT UA Auto SS XR Chest Single Viewon 12-18 XR Chest Single View Normal [facility] XR Pelvis 1 or 2 Viewson XR Pelvis 1 or 2 Views Normal [facility] eGFRon 12-18-2022 GFR/1.73 sq M.predicted among non-blacks MDRD (S/P/Bld) [Vol rate/Area] 44 mL/min/1.73 m2 Low >=59 [facility] Comment on above: Order Comment: Order added by Discern Expert. Result Comment: [employer] earnest kidney disease could be indicated at eGFR's of less than 60 mL/min/1.73m2. Kidney failure is indicated at less than 15 mL/min/1.73m2. Performed By: #### 2 615061, 1203889, [id number], 21957406, 96229434 ####[facility] [address] [place] [address] GFR/1.73 sq M.predicted among non-blacks MDRD (S/P/Bld) [Vol rate/Area] 38 mL/min/1.73 m2 Low >=59 [facility] Comment on above: Order Comment: Order added by Discern Expert. Result Comment: [employer] earnest kidney disease could be indicated at eGFR's of less than 60 mL/min/1.73m2. Kidney failure is indicated at less than 15 mL/min/1.73m2. Performed By: #### 1 9531626, 2871171, 89334759, 3962979, 35480628, 78975772, 7224194 ####[facility] [address] [place] [address] Capillary Glucose POCon 11-22 Glucose [Mass/Vol] 165 mg/dL High 55-99 [facility] Comment on above: Result Comment: Yazmin bri Meter Performed By: #### 2 25242930 ####[facility] [address] [place] [address] Glucose [Mass/Vol] 184 mg/dL High - [facility] Comment on above: Performed By: #### 2 43654003 ####[facility] [address] [place] [address] Capillary Glucose POCon 11-22 Glucose [Mass/Vol] 184 mg/dL High [address] Comment on above: Result Comment: Yazmin bri Meter Performed By: #### 2 [id number] ####[facility] [address] [place] [address] Glucose [Mass/Vol] 141 mg/dL High 55- [facility] Comment on above: Result Comment: Yazmin bri Meter Performed By: #### 2 73120673 ####[facility] [address] [place] [address] Capillary Glucose POCon 11-22 Glucose [Mass/Vol] 183 mg/dL High 55-[address] [place] [address] Comment on above: Result Comment: Yazmin bri Meter Performed By: #### 2 61916026 ####[facility] [address] [place] [address] Glucose [Mass/Vol] 147 mg/dL High 55 [facility] Comment on above: Result Comment: Yazmin bri Meter Performed By: #### 2 [id number] ####[facility] [address] [place] [address] Capillary Glucose POCon 11-22 Glucose [Mass/Vol] 188 mg/dL High 55-99 [facility] Comment on above: Result Comment: Yazmin bri Meter Performed By: #### 2 [id number] ####[facility] [address] [place] [address] Glucose [Mass/Vol] 162 mg/dL High 55-99 [facility] Comment on above: Result Comment: Yazmin bri Meter Performed By: #### 2 [id number] ####[facility] [address] [place] [address] Auto Diffon 12-13-2022 Basophils/100 WBC (Bld) 0.0 % Normal 0.0-2.0 [facility] Comment on above: Order Comment: Order Added by Discern Expert. Performed By: #### 1 7494096, 7341074, [id number], 3030112, 5019908 ####[facility] [address] [place] [address] Basophils/Leukocytes Auto (Bld) [Pure # fraction] 0.0 E9/L Normal 0.0-0.2 [facility] Comment on above: Order Comment: Order Added by Discern Expert. Performed By: #### 1 8916915, 9615475, 548416743, 1855684, 7283770 ####[facility] [address] [place] [address] Eosinophils/100 WBC (Bld) 7.6 % Normal 0.0-8.0 [facility] Comment on above: Order Comment: Order Added by Discern Expert. Performed By: #### 1 0570707, 9035296, 927466130, 9646375, 8167024 ####[facility] [address] [place] [address] Eosinophils/Leukocytes Auto (Bld) [Pure # fraction] 1.0 E9/L High 0.0-0.5 [facility] Comment on above: Order Comment: Order Added by Bethany Expert. Performed By: #### 1 7900416, 0490836, 051916790, 5812512, 3811594 ####[address] [place] [address] Lymphocytes/100 WBC (Bld) 10.3 % Low 14.0-50.0 [facility] Comment on above: Order Comment: Order Added by Discern Expert. Performed By: #### 1 3043091, 9996318, 262104892, 6621251, 7000029 ####[address] [place] [address] Lymphocytes/Leukocytes Auto (Bld) [Pure # fraction] 1.3 E9/L Normal 1.0-4.0 [facility] Comment on above: Order Comment: Order Added by Bethany Expert. Performed By: #### 1 1960140, 7949501, 839184060, 2893617, 5255361 ####[address] [address] Monocytes/100 WBC (Bld) 9.6 % Normal 4.0-14.0 [facility] Comment on above: Order Comment: Order Added by Bethany Expert. Performed By: #### 1 5066156, 2818011, 768787309, 7547668, 0529310 ####[address] [address] Monocytes/Leukocytes Auto (Bld) [Pure # fraction] 1.2 E9/L High 0.2-1.0 [facility] Comment on above: Order Comment: Order Added by Bethany Expert. Performed By: #### 1 8591978, 9459331, 945622451, 3046512, 7521633 ####[address] [place] [address] Neutrophils/100 WBC (Bld) 72.5 % Normal 36.0-75.0 [facility] Comment on above: Order Comment: Order Added by Bethany Expert. Performed By: #### 1 0565986, 6060098, 319203658, 4308544, 3066220 ####[facility] [address] [place] [address] Neutrophils/Leukocytes Auto (Bld) [Pure # fraction] 9.0 E9/L High 2.0-7.5 [facility] Comment on above: Order Comment: Order Added by Discern Expert. Performed By: #### 1 0118735, 2943734, 279971596, 1101062, 9177809 ####[address] [place] [address] CBC w/ Auto Diffon 3 Erythrocyte distribution width (RBC) [Ratio] 15.0 % High 10.9-14.2 [facility] Comment on above: Performed By: #### 1 4290525, 3960448, 806142818, 3839620, 8110128 ####[address] [place] [address] Hematocrit (Bld) [Volume fraction] 45.2 % Normal 37.7-49.0 [facility] Comment on above: Performed By: #### 1 0584829, 3223699, 669899486, 6808271, 6076475 ####[address] [place] [address] Hemoglobin (Bld) [Mass/Vol] 14.8 g/dL Normal 13.5-17.5 [facility] Comment on above: Performed By: #### 1 6196735, 3577728, 175440205, 2221200, 1560324 ####[facility] [address] [place] [address] MCH (RBC) [Entitic mass] 27.8 pg Normal 27.0-34.0 [facility] Comment on above: Performed By: #### 1 7712598, 7283091, 769258129, 0081966, 3521515 ####[address] [place] [address] MCHC (RBC) [Mass/Vol] 32.7 g/dL Normal 31.4-36.0 [facility] Comment on above: Performed By: #### 1 2233758, 6586247, 127464330, 9413701, 9702294 ####[address] [place] [address] MCV (RBC) [Entitic vol] 85.0 fL Normal 80.0-100.0 [facility] Comment on above: Performed By: #### 1 7906936, 5618005, 830565700, 9417675, 5259029 ####[address] [place] [address] Platelet mean volume (Bld) [Entitic vol] 9.4 fL Normal 6.4-10.8 [facility] Comment on above: Performed By: #### 1 3293890, 0934186, 725268507, 7312082, 1065165 ####[address] [address] Platelets (Bld) [#/Vol] 193.0 E9/L Normal 150.0-500.0 [facility] Comment on above: Performed By: #### 1 8375846, 9403509, 644122287, 4397739, 4731692 ####[address] [address] RBC (Bld) [#/Vol] 5.3 E12/L Normal 4.3-5.9 [facility] Comment on above: Performed By: #### 1 7095122, 7465736, 032576634, 3732131, 0518507 ####[address] [place] [address] WBC corrected for nucl RBC Auto (Bld) [#/Vol] 12.5 E9/L High 4.0-11.0 [facility] Comment on above: Performed By: #### 1 2721675, 0074396, 005361003, 7700655, 5788331 ####[address] [place] [address] CMPon 12-13-2022 Albumin [Mass/Vol] 3.6 g/dL Normal 3.3-5.0 [facility] Comment on above: Performed By: #### 1 6419035, 4927617, 381860702, 2330708, 7431904 ####[facility] [address] [place] [address] Albumin/Globulin (S) [Mass conc ratio] 1.0 Low 1.1-2.2 [facility] Comment on above: Performed By: #### 1 4306668, 7061929, 257503985, 5907466, 4197312 ####[facility] [address] [place] [address] ALP [Catalytic activity/Vol] 49 Int._Unit/L Normal 21-98 [facility] Comment on above: Performed By: #### 1 8089159, 5843321, 024935843, 6958051, 9254346 ####[address] [place] [address] ALT No additional P-5'-P [Catalytic activity/Vol] 21 Int._Unit/L Normal 6-46 [facility] Comment on above: Performed By: #### 1 1922789, 5051650, 568971525, 5434886, 5672291 ####[facility] [address] [place] [address] Anion gap [Moles/Vol] 16 mmol/L Normal 6-16 [facility] Comment on above: Performed By: #### 1 4869247, 2820208, 510047203, 2530895, 2446776 ####[facility] [address] [place] [address] AST [Catalytic activity/Vol] 21 Int._Unit/L Normal 5-43 [facility] Comment on above: Performed By: #### 1 1474998, 7887223, 628720805, 0079998, 7229606 ####[facility] [address] [place] [address] Bilirubin [Mass/Vol] 0.6 mg/dL Normal 0.0-1.1 [facility] Comment on above: Performed By: #### 1 3313147, 7463488, 702655705, 0317995, 5441350 ####[facility] [address] [place] [address] Calcium [Mass/Vol] 9.4 mg/dL Normal 8.9-11.1 [facility] Comment on above: Performed By: #### 1 7477231, 3712045, 270823993, 4916541, 0938478 ####[facility] [address] [place] [address] Chloride [Moles/Vol] 99 mmol/L Low 101-111 [facility] Comment on above: Performed By: #### 1 0628505, 7034853, 536704542, 2137572, 8477208 ####[facility] [address] [place] [address] CO2 [Moles/Vol] 31 mmol/L Normal 21-31 [facility] Comment on above: Performed By: #### 1 3100013, 4379429, 935300636, 6796061, 4006190 ####[facility] [address] [place] [address] Creatinine [Mass/Vol] 1.5 mg/dL High 0.5-1.3 [facility] Comment on above: Performed By: #### 1 0768062, 1536753, 413222377, 2976634, 1144219 ####[facility] [address] [place] [address] Globulin (S) [Mass/Vol] 3.7 g/dL Normal 1.4-4.0 [facility] Comment on above: Performed By: #### 1 0034415, 4055952, 640909960, 3316999, 0292012 ####[facility] [address] [place] [address] Glucose [Mass/Vol] 128 mg/dL Normal 55-199 [facility] Comment on above: Result Comment: If t his glucose result represents a fasting glucose, interpretation should refer to the following reference range: 55-99 mg/dL Performed By: #### 1 7313110, 6215567, 460150069, 4153096, 3065222 ####[facility] [address] [place] [address] Potassium [Moles/Vol] 4.1 mmol/L Normal 3.5-5.3 [facility] Comment on above: Performed By: #### 1 6434231, 4222615, 062208731, 1934435, 4631455 ####[facility] [address] [place] [address] Protein [Mass/Vol] 7.3 g/dL Normal 6.0-7.8 [facility] Comment on above: Performed By: #### 1 1033936, 5776527, 169766029, 7835431, 4234328 ####[address] [place] [address] Sodium [Moles/Vol] 142 mmol/L Normal 135-145 [facility] Comment on above: Performed By: #### 1 1852074, 5911573, 340820087, 4284109, 4170914 ####[facility] [address] [place] [address] Urea nitrogen [Mass/Vol] 57 mg/dL High 5-21 [facility] Comment on above: Performed By: #### 1 5123889, 4083874, 821637149, 0355503, 3060133 ####[facility] [address] [place] [address] Urea nitrogen/Creatinine [Mass ratio] 38 No Units High 10-20 [facility] Comment on above: Performed By: #### 1 4162639, 3252842, 736341528, 4630476, 5326859 ####[facility] [address] [place] [address] Capillary Glucose POCon 07 Glucose [Mass/Vol] 256 mg/dL High 55-99 [facility] Comment on above: Result Comment: Yazmin bri Meter Performed By: #### 2 12929630 ####[facility] [address] [place] [address] Glucose [Mass/Vol] 152 mg/dL High 55-[address] [place] [address] Comment on above: Result Comment: Yazmin bri Meter Performed By: #### 2 50523811 ####[facility] [address] [place] [address] UiwW1hbm 12-13-2022 HbA1c (Bld) [Mass fraction] 6.5 % High <=5.9 [facility] Comment on above: Performed By: #### 1 0584770, 2290171, 294909613, 1172291, 6096324 ####[facility] [address] [place] [address] eGFRon 12-13-2022 GFR/1.73 sq M.predicted among non-blacks MDRD (S/P/Bld) [Vol rate/Area] 47 mL/min/1.73 m2 Low >=59 [facility] Comment on above: Order Comment: Order added by Discern Expert. Result Comment: [employer] earnest kidney disease could be indicated at eGFR's of less than 60 mL/min/1.73m2. Kidney failure is indicated at less than 15 mL/min/1.73m2. Performed By: #### 1 7557083, 8359499, 867047422, 9906435, 6302409 ####[facility] [address] [place] [address] Capillary Glucose POCon 11-22 Glucose [Mass/Vol] 212 mg/dL High [address] [place] [address] Comment on above: Result Comment: Yazmin bri Meter Performed By: #### 2 78386635 ####[facility] [address] [place] [address] Glucose [Mass/Vol] 161 mg/dL [address] Comment on above: Result Comment: Yazmin bri Meter Performed By: #### 2 70434080 ####[facility] [address] [place] [address] Capillary Glucose POCon 11-22 Glucose [Mass/Vol] 206 mg/dL High [address] [place] [address] Comment on above: Result Comment: Yazmin bri Meter Performed By: #### 2 09211121 ####[facility] [address] [facility] [place] [address] Glucose [Mass/Vol] 152 mg/dL [address] Comment on above: Result Comment: Yazmin bri Meter Performed By: #### 2 26678801 ####[facility] [address] [place] [address] Capillary Glucose POCon 11-22 Glucose [Mass/Vol] 140 mg/dL [address] Comment on above: Result Comment: Yazmin bri Meter Performed By: #### 2 57093427 ####[facility] [address] [place] [address] Capillary Glucose POCon 11-21 Glucose [Mass/Vol] 243 mg/dL [address] Comment on above: Result Comment: Yazmin bri Meter Performed By: #### 2 03533109 ####[facility] [address] [place] [address] Glucose [Mass/Vol] 157 mg/dL [address] Comment on above: Result Comment: Yazmin bri Meter Performed By: #### 2 52130617 ####[facility] [address] [place] [address] Capillary Glucose POCon 11-21 Glucose [Mass/Vol] 181 mg/dL [address] Comment on above: Result Comment: Yazmin bri Meter Performed By: #### 2 22106478 ####[facility] [address] [place] [address] Capillary Glucose POCon 11-21 Glucose [Mass/Vol] 149 mg/dL [address] Comment on above: Result Comment: Yazmin bri Meter Performed By: #### 2 17194707 ####[facility] [address] [place] [address] Glucose [Mass/Vol] 164 mg/dL High 55-99 [facility] Comment on above: Result Comment: Yazmin bri Meter Performed By: #### 2 97483609 ####[facility] [address] [place] [address] Capillary Glucose POCon 11-21 Glucose [Mass/Vol] 265 mg/dL High 55-99 [facility] Comment on above: Result Comment: Yazmin bri Meter Performed By: #### 2 06792812 ####[facility] [address] [place] [address] Glucose [Mass/Vol] 129 mg/dL High 55-99 [facility] Comment on above: Result Comment: Yazmin bri Meter Performed By: #### 2 47160460 ####[facility] [address] [place] [address] Family Medicine Office/Clini c Noteon 12-06-2022 Family Medicine Office/Clinic Note Normal [facility] Comment on above: Result Comment: Elec tronically Signed By: SHAISTA POTTS, Donta\.br\Date and Time Signed: 12/06/22 21:11 EDT Capillary Glucose POCon 11-21 Glucose [Mass/Vol] 196 mg/dL High 55-99 [facility] Comment on above: Result Comment: Yazmin bri Meter Performed By: #### 2 [id number] ####[facility] [address] [place] [address] Glucose [Mass/Vol] 159 mg/dL High 55-99 [facility] Comment on above: Result Comment: Yazmin bri Meter Performed By: #### 2 01158608 ####[facility] [address] [place] [address] Capillary Glucose POCon 11-21 Glucose [Mass/Vol] 195 mg/dL High 55-99 [facility] Comment on above: Result Comment: Gareth guerrero RN/ Performed By: #### 2 30756165 ####[facility] [address] [place] [address] Insurance Correspondence Off ice12-04-2022 Insurance Correspondence Office [id number]# 1.00CD:127 Normal [facility] Physician Orderon 12-03-2022 Physician Order [id number]# 1.00CD:127 Normal [facility] CHEMISTRYOrdered By: Lab ROP User on 12-02-2022 Glucose [Mass/Vol] 227 mg/dL High 55 - 99 mg/dL [facility] POC Subsection Comment on above: Result Comment: Gareth GARDINER POC Device SN [id number] Invalid Interpretation Code [facility] [place] POC Subsection POC User ID [id number] Invalid Interpretation Code [facility] [place] POC Subsection POC Username KINGSTON JAMISON Invalid Interpretation Code [facility] [place] POC Subsection Glucose [Mass/Vol] 127 mg/dL High 55 - 99 mg/dL [facility] [place] POC Subsection Comment on above: Result Comment: Gareth GARDINER POC Device SN [id number] Invalid Interpretation Code [facility] [place] POC Subsection POC User ID [id number] Invalid Interpretation Code [facility] [place] POC Subsection POC Username TOYIN REYNOLDS Invalid Interpretation Code [facility] [place] POC Subsection Capillary Glucose POCon 11-21 Glucose [Mass/Vol] 227 mg/dL High 55-99 [facility] Comment on above: Result Comment: Gareth GARDINER Performed By: #### 2 [id number] ####[facility] [address] [place] [address] Glucose [Mass/Vol] 127 mg/dL High 55-99 [facility] Comment on above: Result Comment: Gareth GARDINER Performed By: #### 2 [id number] ####[facility] [address] [place] [address] Coding Queryon 12-02-2022 Coding Query Normal [facility] Discharge Note-Nursingon Discharge Note-Nursing Normal [facility] Inpatient Clinical Summaryon 12-02-2022 Inpatient Clinical Summary Normal [facility] Inpatient Patient Summaryon 12-02-2022 Inpatient Patient Summary Normal [facility] Insurance Correspondence Off iceon 12-02-2022 Insurance Correspondence Office [id number]#1. 00CD:127 Normal [facility] Interdisciplinary Note - Santosh e Manageron 12-02-2022 Interdisciplinary Note - Snipper Normal [facility] Comment on above: Result Comment: Elec tronically Signed By: Dank HAYDEN, Lisa\.br\Date and Time Signed: 12/02/22 09:31 EDT Monitor Recordon 12-02-2022 Monitor Record [id number]# 1.00CD:127 Normal [facility] Physician Orderon 12-02-2022 Physician Order [id number]# 1.00CD:127 Normal [facility] Progress Note-Physicianon Progress Note-Physician Normal [facility] Comment on above: Result Comment: Elec tronically Signed By: Adeline COLEMAN\.br\Date and Time Signed: 12/01/22 18:43 EDT\.br\Electronically Co-Signed By: Juan Hdz DO\.br\Date and Time Co-Signed: 12/02/22 07:20 EDT Transfer Documentson 023 Transfer Documents [id number]# 1.00CD:127 Normal [facility] BMPon 12-01-2022 Anion gap [Moles/Vol] 13 mmol/L Normal 6-16 [facility] Comment on above: Performed By: #### 1 9734012, 3238298, 8645190, 4022054 ####[facility] [address] [place] [address] Calcium [Mass/Vol] 9.1 mg/dL Normal 8.9-11.1 [facility] Comment on above: Performed By: #### 1 5357759, 7173071, 5148787, 6050493 ####[facility] [address] [place] [address] Chloride [Moles/Vol] 102 mmol/L Normal 101-111 [facility] Comment on above: Performed By: #### 1 7416931, 9568227, 0989554, 3285611 ####[facility] [address] [address] CO2 [Moles/Vol] 28 mmol/L Normal 21-31 [facility] Comment on above: Performed By: #### 1 2728514, 1435885, 1692842, 6265146 ####[facility] [address] [place] [address] Creatinine [Mass/Vol] 1.3 mg/dL Normal 0.5-1.3 [facility] Comment on above: Performed By: #### 1 1821600, 1637206, 2235655, 6691899 ####[facility] [address] [place] [address] Glucose [Mass/Vol] 97 mg/dL Normal 55-199 [facility] Comment on above: Result Comment: If t his glucose result represents a fasting glucose, interpretation should refer to the following reference range: 55-99 mg/dL Performed By: #### 1 7340224, 1217673, 5077748, 3851887 ####[facility] [address] [place] [address] Potassium [Moles/Vol] 4.6 mmol/L Normal 3.5-5.3 [facility] Comment on above: Performed By: #### 1 2351659, 6439289, 1325098, 5735971 ####[facility] [address] [place] [address] Sodium [Moles/Vol] 138 mmol/L Normal 135-145 [facility] Comment on above: Performed By: #### 1 2389832, 1969920, 8581521, 4316462 ####[facility] [address] [place] [address] Urea nitrogen [Mass/Vol] 24 mg/dL High 5-21 [facility] Comment on above: Performed By: #### 1 6530715, 3311777, 9702646, 3086081 ####[facility] [address] [facility] [place] [address] Urea nitrogen/Creatinine [Mass ratio] 18 No Units Normal 10-20 [facility] Comment on above: Performed By: #### 1 4500183, 9695780, 2029169, 1484471 ####[facility] [address] [place] [address] CHEMISTRYOrdered By: Lab ROP User on 12-01-2022 Glucose [Mass/Vol] 114 mg/dL High 55 - 99 mg/dL [facility] [place] POC Subsection Comment on above: Result Comment: Gareth guerrero RN/ POC Device SN [id number] Invalid Interpretation Code [facility] [place] POC Subsection POC User ID [id number] Invalid Interpretation Code [facility] [place] POC Subsection POC Username MORGANCarolNETO Invalid Interpretation Code [facility] [place] POC Subsection CHEMISTRYOrdered By: SYSTEM SYSTEM on 12-01-2022 Anion gap [Moles/Vol] 13 mmol/L Normal 6 - 16 mEq/L [facility] Remisol Calcium [Mass/Vol] 9.1 mg/dL Normal 8.9 - 11. 1 mg/dL FT Remisol Chloride [Moles/Vol] 102 mmol/L Normal 101 - 1 11 mmol/L FT Remisol CK [Catalytic activity/Vol] 211 [iU]/d Normal 14 - 261 Int._Unit/L [facility] [place] Remisol CO2 [Moles/Vol] 28 mmol/L Normal 21 - 31 mmol/L [facility] [place] Remisol Creatinine [Mass/Vol] 1.3 mg/dL Normal 0.5 - 1.3 mg/dL [facility] [place] Remisol GFR/1.73 sq M.predicted among non-blacks MDRD (S/P/Bld) [Vol rate/Area] 56 mL/min/1.73 m2 Low >=59mL/min/ 1.73 m2 [facility] Chem S Glucose [Mass/Vol] 97 mg/dL Normal 55 - 199 mg/dL FT Remisol Magnesium [Mass/Vol] 2.1 mg/dL Normal 1.3 - 2 .4 mg/dL FT Remisol Potassium [Moles/Vol] 4.6 mmol/L Normal 3.5 - 5.3 mmol/L FT Remisol Sodium [Moles/Vol] 138 mmol/L Normal 135 - 145 mmol/L [facility] [place] Remisol Urea nitrogen [Mass/Vol] 24 mg/dL High 5 - 21 mg/dL [facility] [place] Remisol Urea nitrogen/Creatinine [Mass ratio] 18 mg/mg Normal 10 - 20 [facility] Remisol CKon 12-01-2022 CK [Catalytic activity/Vol] 211 Int._Unit/L Normal 14-261 [facility] Comment on above: Performed By: #### 1 1985211, 9184258, 9559926, 8944478 ####[facility] [address] [place] [address] Capillary Glucose POCon 11-21 Glucose [Mass/Vol] 114 mg/dL High 55-99 [facility] Comment on above: Result Comment: Gareth GARDINER Performed By: #### 2 [id number] ####[facility] [address] [place] [address] Glucose [Mass/Vol] 193 mg/dL High 55-99 [facility] Comment on above: Result Comment: Gareth GARDINER Performed By: #### 2 [id number] ####[facility] [address] [place] [address] Glucose [Mass/Vol] 203 mg/dL High 55-99 [facility] Comment on above: Result Comment: Gareth GARDINER Performed By: #### 2 [id number] ####[facility] [address] [place] [address] Glucose [Mass/Vol] 110 mg/dL High 55-99 [facility] Comment on above: Result Comment: Gareth GARDINER Performed By: #### 2 [id number] ####[facility] [address] [place] [address] Interdisciplinary Note - Santosh e Manageron 12-01-2022 Interdisciplinary Note - Snipper Pt is asleep in bed, no family present. Pt is accepted to [facility] side, pending precert at this time. Contact information provided and white board updated, CRM following Normal [facility] Comment on above: Result Comment: Elec tronically Signed By: Dank HAYDEN, Lisa\.candice\Date and Time Signed: 12/01/22 08:20 EDT Ionized Calciumon 12-01-2022 Calcium.ionized ISE [Mass/Vol] 4.8 mg/dL Invalid Interpretation Code 4.5-5.6 [facility] Comment on above: Result Comment: Perf ormed at: [facility] [address] [place], [place] [id number] PhD Michael Cortes Performed By: #### 2 165502, 5308637, 9017951, 96634332, 79408104, 1217899, 28537192, 3801683, 74500319, 216173231, 3070253, 0362301 ####[facility] [address] [place] [address] Magnesiumon 12-01-2022 Magnesium [Mass/Vol] 2.1 mg/dL Normal 1.3-2.4 [facility] Comment on above: Performed By: #### 1 3956101, 6927583, 0355230, 0956167 ####[facility] [address] [place] [address] Progress Note-Physicianon Progress Note-Physician Normal [facility] Comment on above: Result Comment: Elec tronically Signed By: Pao POTTS, Lizeth\.br\Date and Time Signed: 12/01/22 12:41 EDT XR Abdomen 1 Viewon 12-02-19 23 XR Abdomen 1 View Normal [facility] eGFRon 12-01-2022 GFR/1.73 sq M.predicted among non-blacks MDRD (S/P/Bld) [Vol rate/Area] 56 mL/min/1.73 m2 Low >=59 [facility] Comment on above: Order Comment: Order added by Discern Expert. Result Comment: [employer] S[employer] earnest kidney disease could be indicated at eGFR's of less than 60 mL/min/1.73m2. Kidney failure is indicated at less than 15 mL/min/1.73m2. Performed By: #### 1 5340453, 4551469, 6541967, 0307646 ####[facility] [address] [place] [address] BMPon 11-30-2022 Anion gap [Moles/Vol] 11 mmol/L Normal 6-16 [facility] Comment on above: Performed By: #### 2 571179, 8968553, 48247399 ####[facility] [address] [place] [address] Calcium [Mass/Vol] 9.0 mg/dL Normal 8.9-11.1 [facility] Comment on above: Performed By: #### 2 475042, 7033840, 74932958 ####[facility] [address] [place] [address] Chloride [Moles/Vol] 102 mmol/L Normal 101-111 [facility] Comment on above: Performed By: #### 2 831805, 6872378, 29183177 ####[facility] [address] [place] [address] CO2 [Moles/Vol] 31 mmol/L Normal 21-31 [facility] Comment on above: Performed By: #### 2 989225, 1175439, 38105482 ####[facility] [address] [place] [address] Creatinine [Mass/Vol] 1.1 mg/dL Normal 0.5-1.3 [facility] Comment on above: Performed By: #### 2 510136, 4946657, 18193449 ####[facility] [address] [place] [address] Glucose [Mass/Vol] 114 mg/dL Normal 55-199 [facility] Comment on above: Result Comment: If t his glucose result represents a fasting glucose, interpretation should refer to the following reference range: 55-99 mg/dL Performed By: #### 2 564618, 0425583, 16735769 ####[facility] [address] [place] [address] Potassium [Moles/Vol] 3.4 mmol/L Low 3.5-5.3 [facility] Comment on above: Performed By: #### 2 346539, 9434443, 53101463 ####[facility] [address] [place] [address] Sodium [Moles/Vol] 141 mmol/L Normal 135-145 [facility] Comment on above: Performed By: #### 2 143813, 9268605, 72811949 ####[facility] [address] [place] [address] Urea nitrogen [Mass/Vol] 23 mg/dL High 5-21 [facility] Comment on above: Performed By: #### 2 165995, 6330379, 78327138 ####[facility] [address] [place] [address] Urea nitrogen/Creatinine [Mass ratio] 21 No Units High 10-20 [facility] Comment on above: Performed By: #### 2 522530, 1939458, 02006122 ####[facility] [address] [place] [address] CHEMISTRYOrdered By: SYSTEM SYSTEM on 11-30-2022 Anion gap [Moles/Vol] 11 mmol/L Normal 6 - 16 mEq/L [facility] Remisol Calcium [Mass/Vol] 9.0 mg/dL Normal 8.9 - 11. 1 mg/dL FT Remisol Chloride [Moles/Vol] 102 mmol/L Normal 101 - 1 11 mmol/L [facility] Remisol CO2 [Moles/Vol] 31 mmol/L Normal 21 - 31 mmol/L [facility] Remisol Creatinine [Mass/Vol] 1.1 mg/dL Normal 0.5 - 1.3 mg/dL [facility] Remisol GFR/1.73 sq M.predicted among non-blacks MDRD (S/P/Bld) [Vol rate/Area] 69 mL/min/1.73 m2 Normal >=59mL/min/ 1.73 m2 [facility] Chem S Glucose [Mass/Vol] 114 mg/dL Normal 55 - 199 mg/dL FT [facility] Magnesium [Mass/Vol] 1.8 mg/dL Normal 1.3 - 2 .4 mg/dL FT [facility] Potassium [Moles/Vol] 3.4 mmol/L Low 3.5 - 5.3 mmol/L [facility] Remisol Sodium [Moles/Vol] 141 mmol/L Normal 135 - 145 mmol/L [facility] Remisol Urea nitrogen [Mass/Vol] 23 mg/dL High 5 - 21 mg/dL [facility] Remisol Urea nitrogen/Creatinine [Mass ratio] 21 mg/mg High 10 - 20 [facility] Remisol Capillary Glucose POCon 11-21 Glucose [Mass/Vol] 194 mg/dL High 55-99 [facility] Comment on above: Result Comment: Gareth GARDINER Performed By: #### 2 [id number] ####[facility] [address] [place] [address] Glucose [Mass/Vol] 96 mg/dL Normal 55-99 [facility] Comment on above: Performed By: #### 2 45035941 ####[facility] [address] [place] [address] Glucose [Mass/Vol] 130 mg/dL High 55-99 [facility] Comment on above: Result Comment: Gareth GARDINER Performed By: #### 2 74946889 ####[facility] [address] [place] [address] Glucose [Mass/Vol] 113 mg/dL High 55-99 [facility] Comment on above: Result Comment: Gareth GARDINER Performed By: #### 2 63936688 ####[facility] [address] [place] [address] Echo Transthoracic Completeo n 11-30-2022 Echo Transthoracic Complete Normal [facility] Insurance Correspondence Off iceon 11-30-2022 Insurance Correspondence Office [id number] .[id number]:127 Normal [facility] Interdisciplinary Note - Santosh e Manageron 11-30-2022 Interdisciplinary Note - Snipper Normal [facility] Comment on above: Result Comment: Elec tronically Signed By: Dank HAYDEN, Lisa\.candice\Date and Time Signed: 11/30/22 10:48 EDT Magnesiumon 11-30-2022 Magnesium [Mass/Vol] 1.8 mg/dL Normal 1.3-2.4 [facility] Comment on above: Performed By: #### 2 155231, 5951476, 35925328 ####[facility] [address] [place] [address] Message from Medicareon 11-21 Message from Medicare [id number] .00CD:127 Normal [facility] Progress Note-Physicianon Progress Note-Physician Normal [facility] Comment on above: Result Comment: Elec tronically Signed By: Joanie Jiménez MD\.br\Date and Time Signed: 11/30/22 15:13 EDT Progress Note-Physician Normal [facility] Comment on above: Result Comment: Elec tronically Signed By: Lizeth Cedeno MD\.br\Date and Time Signed: 11/30/22 14:52 EDT UA With Cult Reflexon 2022 Bacteria LM Ql (Urine sed) TRACE Normal Trace [facility] Comment on above: Order Comment: Urina ry Catheter Insertion triggered Urinalysis With Culture Reflex order by discern. Performed By: #### 1 4867249 ####[facility] [address] [place] [address] Bilirubin Ql (U) Negative Normal Negative [facility] Comment on above: Order Comment: Urina ry Catheter Insertion triggered Urinalysis With Culture Reflex order by discern. Performed By: #### 1 6968898 ####[facility] [address] [place] [address] Clarity (U) CLEAR Normal Clear [facility] Comment on above: Order Comment: Urina ry Catheter Insertion triggered Urinalysis With Culture Reflex order by discern. Performed By: #### 1 7626041 ####[facility] [address] [place] [address] Color (U) YELLOW Normal Yellow [facility] Comment on above: Order Comment: Urina ry Catheter Insertion triggered Urinalysis With Culture Reflex order by discern. Performed By: #### 1 4844494 ####[facility] [address] [place] [address] Epithelial cells.squamous LM.HPF (Urine sed) [#/Area] 0-2 Normal 0-2 [facility] Comment on above: Order Comment: Urina ry Catheter Insertion triggered Urinalysis With Culture Reflex order by discern. Performed By: #### 1 5242608 ####[facility] [address] [place] [address] Glucose Test strip (U) [Mass/Vol] Negative Normal Negative [facility] Comment on above: Order Comment: Urina ry Catheter Insertion triggered Urinalysis With Culture Reflex order by discern. Performed By: #### 1 6399257 ####[facility] [address] [place] [address] Hemoglobin Ql (U) Negative Normal Negative [facility] Comment on above: Order Comment: Urina ry Catheter Insertion triggered Urinalysis With Culture Reflex order by discern. Performed By: #### 1 6001358 ####[facility] [address] [place] [address] Ketones (U) [Mass/Vol] Negative Normal Negative [facility] Comment on above: Order Comment: Urina ry Catheter Insertion triggered Urinalysis With Culture Reflex order by discern. Performed By: #### 1 0238890 ####[facility] [address] [place] [address] Lismore.plasma/Lismore.R BC (Bld) [Mass ratio] 0-3 Normal 0-3 [facility] Comment on above: Order Comment: Urina ry Catheter Insertion triggered Urinalysis With Culture Reflex order by discern. Performed By: #### 1 3069512 ####[facility] [address] [place] [address] Nitrite Ql (U) Negative Normal Negative [facility] Comment on above: Order Comment: Urina ry Catheter Insertion triggered Urinalysis With Culture Reflex order by discern. Performed By: #### 1 0209701 ####[facility] [address] [place] [address] pH (U) 6.0 [pH] Invalid Interpretation Code 5.0-9.0 [facility] Comment on above: Order Comment: Urina ry Catheter Insertion triggered Urinalysis With Culture Reflex order by discern. Performed By: #### 1 0934972 ####[address] [address] Protein (U) [Mass/Vol] Negative Normal Negative [facility] Comment on above: Order Comment: Urina ry Catheter Insertion triggered Urinalysis With Culture Reflex order by discern. Performed By: #### 1 2881671 ####[place] [address] Specific gravity (U) [Rel density] 1.010 Invalid Interpretation Code 1.005-1.030 [facility] Comment on above: Order Comment: Urina ry Catheter Insertion triggered Urinalysis With Culture Reflex order by discern. Performed By: #### 1 3714783 ####[place] [address] Type of Urine collection method Red Normal [facility] Comment on above: Order Comment: Urina ry Catheter Insertion triggered Urinalysis With Culture Reflex order by discern. Performed By: #### 1 2341907 ####[place] [address] Urobilinogen Qn (U) 0.2 {Lei'U}/dL Normal 0.0-1.0 [facility] Comment on above: Order Comment: Urina ry Catheter Insertion triggered Urinalysis With Culture Reflex order by discern. Performed By: #### 1 7950743 ####[place] [address] WBC Auto Ql (U) Negative Normal Negative [facility] Comment on above: Order Comment: Urina ry Catheter Insertion triggered Urinalysis With Culture Reflex order by discern. Performed By: #### 1 0162871 ####[place] [address]757 WBC casts LM.LPF (Urine sed) [#/Area] 0-3 Normal [facility] Comment on above: Order Comment: Urina ry Catheter Insertion triggered Urinalysis With Culture Reflex order by discern. Performed By: #### 1 4276173 ####[address] [place] [address] WBC LM.HPF (Urine sed) [#/Area] 0-5 Normal 0-5 [facility] Comment on above: Order Comment: Urina ry Catheter Insertion triggered Urinalysis With Culture Reflex order by discern. Performed By: #### 1 9791412 ####[facility] [address] [place] [address] URINALYSISOrdered By: Houston Castillo on 11-30-2022 Bacteria [...] AM) Normal Negative [facility] UA Auto SS Lismore.plasma/Lismore.R BC (Bld) [Mass ratio] 0-3 /HPF Normal [...] [facility] UA Auto SS Urobilinogen Qn (U) 0.8881265 {Lei'U}/dL Normal 0.0 - 1.0 EU/dL [facility] UA Auto SS WBC Auto Ql (U) Negative (11/30/22 11:00 AM) Normal Negative [facility] UA Auto SS WBC casts LM.LPF (Urine sed) [#/Area] 0-3 (11/30/22 11:00 AM) Normal [facility] UA Auto SS WBC LM.HPF (Urine sed) [#/Area] 0-5 /HPF Normal 0-5/HPF [facility] UA Auto SS eGFRon 11-30-2022 GFR/1.73 sq M.predicted among non-blacks MDRD (S/P/Bld) [Vol rate/Area] 69 mL/min/1.73 m2 Normal >=59 [facility] Comment on above: Order Comment: Order added by Discern Expert. Result Comment: [employer] Sorter earnest kidney disease could be indicated at eGFR's of less than 60 mL/min/1.73m2. Kidney failure is indicated at less than 15 mL/min/1.73m2. Performed By: #### 2 101903, 5287430, 31577018 ####[facility] [address] [place] [address] Auto Diffon 11-29-2022 Basophils/100 WBC (Bld) 0.5 % Normal 0.0-2.0 [facility] Comment on above: Order Comment: Order Added by Discern Expert. Performed By: #### 2 200721, 0378793, 5893861, 83552542, 75600450, 9697910, 29660320, 1563408, 79044006, 079716234, 0309897, 6723311 ####[facility] [address] [place] [address] Basophils/Leukocytes Auto (Bld) [Pure # fraction] 0.0 E9/L Normal 0.0-0.2 [facility] Comment on above: Order Comment: Order Added by Discern Expert. Performed By: #### 2 656814, 1490950, 9670213, 48667407, 80383331, 3268390, 23895088, 2366362, 09371874, 893474715, 2034391, 6784654 ####[facility] [address] [place] [address] Eosinophils/100 WBC (Bld) 8.4 % High 0.0-8.0 [facility] Comment on above: Order Comment: Order Added by Discern Expert. Performed By: #### 2 201524, 3094301, 9904870, 23301603, 05347123, 3746093, 94731616, 4181500, 29942400, 811137107, 3748480, 6186702 ####[facility] [address] [place] [address] Eosinophils/Leukocytes Auto (Bld) [Pure # fraction] 0.6 E9/L High 0.0-0.5 [facility] Comment on above: Order Comment: Order Added by Discern Expert. Performed By: #### 2 125185, 0607737, 1909211, 81141008, 07674345, 5505721, 04578786, 9872992, 79253408, 478730232, 0324486, 5201333 ####[facility] [address] [place] [address] Lymphocytes/100 WBC (Bld) 15.8 % Normal 14.0-50.0 [facility] Comment on above: Order Comment: Order Added by Discern Expert. Performed By: #### 2 773389, 1741947, 4945090, 39784789, 04148407, 2691145, 24245266, 7462957, 61701877, 185748096, 5402461, 0424951 ####[facility] [address] [place] [address] Lymphocytes/Leukocytes Auto (Bld) [Pure # fraction] 1.2 E9/L Normal 1.0-4.0 [facility] Comment on above: Order Comment: Order Added by Discern Expert. Performed By: #### 2 879727, 5808165, 4144990, 46425037, 69399420, 7828200, 83527482, 0602360, 73572009, 027647185, 4974255, 1076061 ####[facility] [address] [place] [address] Monocytes/100 WBC (Bld) 8.4 % Normal 4.0-14.0 [facility] Comment on above: Order Comment: Order Added by Discern Expert. Performed By: #### 2 353494, 1583450, 2350688, 29187075, 10370544, 2830002, 71575125, 2670892, 24891184, 717497341, 9101847, 5938939 ####[facility] [address] [place] [address] Monocytes/Leukocytes Auto (Bld) [Pure # fraction] 0.6 E9/L Normal 0.2-1.0 [facility] Comment on above: Order Comment: Order Added by Discern Expert. Performed By: #### 2 913119, 1488454, 9054347, 08426438, 08329457, 2193595, 96199972, 7105227, 48606174, 656160884, 3510989, 3810066 ####[facility] [address] [place] [address] Neutrophils/100 WBC (Bld) 66.9 % Normal 36.0-75.0 [facility] Comment on above: Order Comment: Order Added by Discern Expert. Performed By: #### 2 521850, 4532490, 0554432, 67766147, 08727162, 1249591, 09867075, 2600304, 32260724, 659725734, 8230927, 2137138 ####[facility] [address] [place] [address] Neutrophils/Leukocytes Auto (Bld) [Pure # fraction] 5.0 E9/L Normal 2.0-7.5 [facility] Comment on above: Order Comment: Order Added by Discern Expert. Performed By: #### 2 089962, 7733045, 1400429, 44388967, 09801074, 0116560, 83523698, 5096325, 93477934, 784244994, 8627806, 6322561 ####[facility] [address] [place] [address] BMPon 11-29-2022 Anion gap [Moles/Vol] 13 mmol/L Normal 6-16 [facility] Comment on above: Performed By: #### 2 096506, 4836706, 7934094, 70023191, 89064376, 4819042, 92003623, 1599027, 69861751, 135906937, 7870048, 6141417 ####[facility] [address] [place] [address] Calcium [Mass/Vol] 9.1 mg/dL Normal 8.9-11.1 [facility] Comment on above: Performed By: #### 2 569974, 3886464, 9019083, 40918026, 89058226, 1595520, 02182557, 2958449, 18475951, 178997563, 2684048, 4342537 ####[facility] [address] [place] [address] Chloride [Moles/Vol] 102 mmol/L Normal 101-111 [facility] Comment on above: Performed By: #### 2 100961, 5841223, 4689235, 81969704, 07647018, 7078538, 07139172, 6958699, 87320932, 455731102, 3006456, 4947751 ####[facility] [address] [place] [address] CO2 [Moles/Vol] 29 mmol/L Normal 21-31 [facility] Comment on above: Performed By: #### 2 606846, 5020337, 4803344, 31000496, 98782368, 5624364, 96362132, 0347338, 21112550, 808886408, 5711539, 0147536 ####[facility] [address] [place] [address] Creatinine [Mass/Vol] 1.1 mg/dL Normal 0.5-1.3 [facility] Comment on above: Performed By: #### 2 934941, 3738766, 5441981, 71592519, 73881608, 7811696, 50861050, 0761245, 51033989, 203451458, 1891763, 8053288 ####[facility] [address] [place] [address] Glucose [Mass/Vol] 95 mg/dL Normal 55-199 [facility] Comment on above: Result Comment: If t his glucose result represents a fasting glucose, interpretation should refer to the following reference range: 55-99 mg/dL Performed By: #### 2 742167, 0490819, 0147539, 26733274, 03879858, 7494810, 87423306, 2257984, 97940721, 907046574, 7483080, 2890734 ####[facility] [address] [place] [address] Potassium [Moles/Vol] 3.9 mmol/L Normal 3.5-5.3 [facility] Comment on above: Performed By: #### 2 101993, 9593645, 1030868, 86366339, 09475235, 2167192, 33868637, 5134255, 41399894, 480900549, 2487682, 6637793 ####[facility] [address] [place] [address] Sodium [Moles/Vol] 140 mmol/L Normal 135-145 [facility] Comment on above: Performed By: #### 2 716213, 7498995, 9077353, 04764717, 03518819, 7960954, 43878635, 1320956, 53952883, 500159603, 4667371, 1459269 ####[facility] [address] [place] [address] Urea nitrogen [Mass/Vol] 16 mg/dL Normal 5-21 [facility] Comment on above: Performed By: #### 2 956773, 8844640, 6828395, 97588712, 57866933, 3230250, 54308690, 4818606, 31697752, 295818206, 7550503, 3616204 ####[facility] [address] [place] [address] Urea nitrogen/Creatinine [Mass ratio] 14 No Units Normal 10-20 [facility] Comment on above: Performed By: #### 2 345979, 7965542, 6808261, 47938505, 37355042, 6369012, 51725826, 5370104, 08857756, 736280768, 1700662, 2963008 ####[facility] [address] [place] [address] BNPon 11-29-2022 Natriuretic peptide B (Bld) [Mass/Vol] 855 pg/mL High 5-80 [facility] Comment on above: Performed By: #### 2 192025, 3152111, 7462138, 60463056, 26975519, 2018251, 19305471, 6440499, 15420328, 901401098, 3268860, 1066816 ####[facility] [address] [place] [address] CBC w/ Auto Diffon 3 Erythrocyte distribution width (RBC) [Ratio] 14.9 % High 10.9-14.2 [facility] Comment on above: Performed By: #### 2 872322, 4879293, 6506496, 78755296, 99332727, 0960202, 62361910, 7774853, 47636475, 603126786, 9853992, 1907080 ####[facility] [address] [place] [address] Hematocrit (Bld) [Volume fraction] 38.1 % Normal 37.7-49.0 [facility] Comment on above: Performed By: #### 2 417273, 5060986, 5090051, 35438000, 26597078, 6594096, 75767545, 4401198, 14409769, 207933308, 4105114, 0295169 ####[facility] [address] [place] [address] Hemoglobin (Bld) [Mass/Vol] 12.8 g/dL Low 13.5-17.5 [facility] Comment on above: Performed By: #### 2 710442, 4074916, 8985832, 18026161, 25571895, 3074517, 17914523, 6317582, 40937341, 528553699, 1006942, 2958181 ####[facility] [address] [place] [address] MCH (RBC) [Entitic mass] 29.0 pg Normal 27.0-34.0 [facility] Comment on above: Performed By: #### 2 971687, 2224213, 0528787, 14073438, 18493305, 9881148, 49747014, 2111753, 44371974, 522487755, 2403102, 4923817 ####[facility] [address] [place], [place] [address] MCHC (RBC) [Mass/Vol] 33.7 g/dL Normal 31.4-36.0 [facility] Comment on above: Performed By: #### 2 060826, 1445423, 3807055, 69211230, 07040449, 9076990, 47792548, 2356686, 43856111, 410468569, 9000855, 8752023 ####[facility] [address] [place] [address] MCV (RBC) [Entitic vol] 86.1 fL Normal 80.0-100.0 [facility] Comment on above: Performed By: #### 2 765904, 6712226, 6072604, 82068123, 59605924, 9707322, 45085518, 5137200, 64339873, 665432132, 4879241, 2296380 ####[facility] [address] [place] [address] Platelet mean volume (Bld) [Entitic vol] 10.9 fL High 6.4-10.8 [facility] Comment on above: Performed By: #### 2 641711, 7447500, 4058088, 54889653, 33258081, 5717097, 41949123, 1662963, 03491779, 028850464, 5136516, 7317034 ####[facility] [address] [place] [address] Platelets (Bld) [#/Vol] 189.0 E9/L Normal 150.0-500.0 [facility] Comment on above: Performed By: #### 2 442901, 2960259, 8650939, 67542619, 02211756, 5587250, 03065184, 1088172, 92479031, [id number], 1970488, 0184742 ####[address] [place] [address] RBC (Bld) [#/Vol] 4.4 E12/L Normal 4.3-5.9 [facility] Comment on above: Performed By: #### 2 534690, 8313292, 8440963, 55825539, 01051542, 9964345, 60470313, 2426967, 07925708, 624796201, 1007584, 7599019 ####[facility] [address] [place] [address] WBC corrected for nucl RBC Auto (Bld) [#/Vol] 7.4 E9/L Normal 4.0-11.0 [facility] Comment on above: Performed By: #### 2 415658, 8430838, 4252340, 60630447, 10542112, 5090608, 89872718, 8839439, 78022456, 286408389, 1405752, 9052857 ####[facility] [address] [place] [address] CHEMISTRYOrdered By: SYSTEM SYSTEM on 11-29-2022 Albumin [...] 69 mL/min/1.73 m2 Normal >=59mL/min/ 1.73 m2 [facility] [place] Chem S Globulin (S) [Mass/Vol] 3.1 g/dL [...] 37.00 pg/mL Normal 15.90 - 38.40 pg/mL [facility] [place] Remisol CHEMISTRYOrdered By: Natalie Soto on 11-29-2022 Natriuretic peptide B (Bld) [Mass/Vol] 855 pg/mL High 5 - 80 pg/mL [facility] [place] HemeManSS CHEMISTRYOrdered By: Marian peterson DomainUser on 11-29-2022 Calcium.ionized ISE [Mass/Vol] 4.8 mg/dL Invalid Interpretation Code 4.5-5.6mg/d L [facility] [place] SendOutsSS Comment on above: Result Comment: Perf ormed at: CB [facility] [address] [place], [place] [id number] PhD Michael Cortes CKon 11-29-2022 CK [Catalytic activity/Vol] 1096 Int._Unit/L Abnormal 14-261 [facility] Comment on above: Result Comment: Crit ical Result verified by repeat analysis\Critical Result S_CK:1096 Called to MANAS BARBA AT by AMY JOHNSON and read back for confirmation at 11/29/2022 06:40:15 Performed By: #### 2 052166, 1630849, 3926184, 96134766, 77878355, 7255418, 40690581, 7242156, 44105660, 213161915, 0649283, 0127465 ####[facility] [address] [place] [address] CT Abdomen/Pelvis w/ Contras ton 11-29-2022 CT Abdomen/Pelvis w/ Contrast Normal [facility] CT Head or Brain w/o Contras ton 11-29-2022 CT Head or Brain w/o Contrast Normal [facility] CTA Cheston 11-29-2022 CTA Chest Normal [facility] Capillary Glucose POCon Glucose [Mass/Vol] 122 mg/dL High 55-99 [facility] Comment on above: Result Comment: Gareth GARDINER Performed By: #### 2 [id number] ####[facility] [address] [place] [address] Glucose [Mass/Vol] 174 mg/dL High 55-99 [facility] Comment on above: Performed By: #### 2 [id number] ####[facility] [address] [place] [address] Glucose [Mass/Vol] 107 mg/dL High 55-99 [facility] Comment on above: Result Comment: Gareth GARDINER Performed By: #### 2 [id number] ####[facility] [address] [place] [address] Consultation Noteon 11-30-19 Consultation Note Normal [facility] Comment on above: Result Comment: Elec tronically Signed By: Marcus POTTS, [place]\Date and Time Signed: 11/29/22 14:44 EDT ED Clinical Summaryon 2022 ED Clinical Summary Normal [facility] ED Note-Physicianon 11-30-19 ED Note-Physician Normal [facility] Comment on above: Result Comment: Elec tronically Signed By: Coretta STEIN, Elkin Prajapati\.candice\Date and Time Signed: 11/28/22 22:32 EDT ED Patient Education Noteon 11-29-2022 ED Patient Education Note Normal [facility] ED Patient Summaryon 023 ED Patient Summary Normal [facility] HEMATOLOGYOrdered By: SYSTEM SYSTEM on [...] 4.4 E12/L Normal 4.3 - 5.9 E12/L [facility] [place] HemeAutoSS Sed Rate Automated 17 mm/h Normal 0 - 19 mm/hr FT HemeAutoSS WBC corrected for nucl RBC Auto (Bld) [#/Vol] 7.4 E9/L Normal 4.0 - 11.0 E9/L [facility] [place] HemeAutoSS Hep Func Panelon 11-29-2022 Albumin [Mass/Vol] 3.6 g/dL Normal 3.3-5.0 [facility] Comment on above: Performed By: #### 2 083135, 6343802, 6361710, 64002084, 72885035, 9770926, 35556090, 1398107, 34529091, 603271871, 5600277, 5392292 ####[facility] [address] [place] [address] Albumin/Globulin (S) [Mass conc ratio] 1.2 Normal 1.1-2.2 [facility] Comment on above: Performed By: #### 2 727121, 8305802, 2075498, 33330948, 74618861, 1305331, 13946850, 0515986, 59432448, 517098005, 2068042, 7567506 ####[facility] [address] [place] [address] ALP [Catalytic activity/Vol] 40 Int._Unit/L Normal 21-98 [facility] Comment on above: Performed By: #### 2 378360, 0166305, 3580106, 63010602, 82017216, 1219445, 55215400, 7359005, 08245036, 786374159, 2951202, 3652674 ####[facility] [address] [place] [address] ALT No additional P-5'-P [Catalytic activity/Vol] 17 Int._Unit/L Normal 6-46 [facility] Comment on above: Performed By: #### 2 245820, 5497691, 3434783, 53395398, 07279959, 6471352, 91195579, 5467528, 68500536, 096942543, 4714660, 5516325 ####[facility] [address] [place] [address] AST [Catalytic activity/Vol] 33 Int._Unit/L Normal 5-43 [facility] Comment on above: Performed By: #### 2 266957, 9548046, 6759237, 11766302, 92970635, 3502631, 38898602, 1938703, 24824710, 483837670, 7114436, 8418564 ####[facility] [address] [place] [address] Bilirubin [Mass/Vol] 1.1 mg/dL Normal 0.0-1.1 [facility] Comment on above: Performed By: #### 2 118418, 6118273, 3854150, 02333946, 57704358, 9371583, 29718692, 0043764, 29374910, 385209967, 0372500, 1480966 ####[facility] [address] [place] [address] Bilirubin.direct [Mass/Vol] 0.2 mg/dL Normal 0.1-0.4 [facility] Comment on above: Performed By: #### 2 159094, 4843188, 8928295, 10408067, 76069665, 4603509, 98762895, 6041454, 75618943, 280509193, 1860001, 1984678 ####[facility] [address] [place] [address] Bilirubin.indirect [Mass or moles/Vol] 0.9 mg/dL Normal 0.1-0.9 [facility] Comment on above: Performed By: #### 2 613535, 2656585, 2789877, 66933594, 72487774, 1462487, 61142469, 6341819, 02948340, 105467508, 0181172, 4083577 ####[facility] [address] [place] [address] Globulin (S) [Mass/Vol] 3.1 g/dL Normal 1.4-4.0 [facility] Comment on above: Performed By: #### 2 641829, 5423646, 0947376, 23088583, 72811846, 8459678, 91312210, 5340117, 79691398, 780904322, 9307438, 2752602 ####[facility] [address] [place] [address] Protein [Mass/Vol] 6.7 g/dL Normal 6.0-7.8 [facility] Comment on above: Performed By: #### 2 560412, 7712590, 0057347, 69287780, 88668574, 6532413, 88663921, 4695096, 40235217, 199859187, 1853092, 8202540 ####[facility] [address] [place] [address] Interdisciplinary Note - Santosh e Manageron 11-29-2022 Interdisciplinary Note - Snipper Normal [facility] Comment on above: Result Comment: Elec tronically Signed By: Jose HAYDEN, Norma\.br\Date and Time Signed: 11/29/22 15:07 EDT Lipid Panelon 11-29-2022 Cholesterol [Mass/Vol] 114 mg/dL Low 120-200 [facility] Comment on above: Performed By: #### 2 005045, 4418096, 1408558, 21607469, 99603744, 8714654, 32246398, 3861713, 51355322, 854263603, 0773604, 6529056 ####[facility] [address] [place] [address] Cholesterol in HDL [Mass/Vol] 50 mg/dL Invalid Interpretation Code [facility] Comment on above: Result Comment: HDL > or equal to 60 mg/dL: Low cardiovascular riskHDL < 40 mg/dL : High cardiovascular risk Performed By: #### 2 038230, 9859667, 7333573, 31243418, 89163554, 3510488, 64414712, 4917187, 20726921, 971990825, 0665689, 6545538 ####[facility] [address] [place] [address] Cholesterol in LDL [Mass/Vol] 43 mg/dL Normal <=129 [facility] Comment on above: Performed By: #### 2 996341, 4433185, 1119648, 23495073, 31730002, 4554594, 74092668, 9369307, 80425567, 077836520, 8508419, 9302907 ####[facility] [address] [place] [address] Cholesterol in VLDL [Mass/Vol] 14 mg/dL Normal 7-40 [facility] Comment on above: Performed By: #### 2 249333, 6048814, 1314039, 13221653, 61777938, 4129256, 45182059, 5699196, 72419415, 798282038, 5930843, 2850284 ####[facility] [address] [place] [address] Triglyceride [Mass/Vol] 72 mg/dL Normal <=149 [facility] Comment on above: Performed By: #### 2 192159, 9240467, 5689592, 31581932, 33900576, 8682869, 22567082, 0575378, 29231477, 100821870, 8817755, 4325202 ####[facility] [address] [place] [address] Monitor Recordon 11-29-2022 Monitor Record [id number]# 1.00CD:127 Normal [facility] Monitor Record [id number]# 1.00CD:127 Normal [facility] Monitor Record [id number]# 1.00CD:127 Normal [facility] Monitor Record [id number]# 1.00CD:127 Normal [facility] Monitor Record [id number] 7 [id number]# 1.00CD:127 Normal [facility] Monitor Record [id number] 7 [id number]# 1.00CD:127 Normal [facility] Monitor Record [id number] 7 [id number]# 1.00CD:127 Normal [facility] Monitor Record [id number]# 1.00CD:127 Normal [facility] Progress Note-Physicianon Progress Note-Physician Normal [facility] Comment on above: Result Comment: Elec tronically Signed By: Alex STEIN, [place].br\Date and Time Signed: 11/29/22 10:54 EDT RAD - Preliminary Cat Scan R eporton 11-29-2022 RAD - Preliminary Cat Scan Report [id number] #1.00CD:127 Normal [facility] Sed Rate Automatedon 023 Sed Rate Automated 17 mm/hr Normal 0-19 [facility] Comment on above: Performed By: #### 2 534308, 1524093, 9965260, 76245367, 59681727, 8782419, 65808408, 8302876, 49526763, 579458944, 9212566, 8890197 ####[facility] [address] [place] [address] TSH With T4fr Reflexon 11-29 TSH Qn 3.43 m[IU]/L Normal 0.34-5.60 [facility] Comment on above: Performed By: #### 2 168975, 0881670, 5780495, 60491192, 11453738, 8889865, 96597598, 0927374, 23921773, 107469242, 6005678, 4506939 ####[facility] [address] [place] [address] Troponin 6 Hr.on 11-29-2022 Troponin I.cardiac [Mass/Vol] 32.60 pg/mL Normal 15.90-38.40 [facility] Comment on above: Result Comment: The 95% CI (Confidence Interval) PPV (Positive Predictive Value) for myocardial infarction in females is 38 pg/mL, in males 51 pg/mL. The results should be used in conjunction with clinical conditions of myocardial infarction.(Access High Sensitivity Troponin I Instructions For Use, [employer], December 2017) Performed By: #### 1 3742425 ####[facility] [address] [place] [address] Troponin 9 Hr.on 11-29-2022 Troponin I.cardiac [Mass/Vol] 37.00 pg/mL Normal 15.90-38.40 [facility] Comment on above: Result Comment: The 95% CI (Confidence Interval) PPV (Positive Predictive Value) for myocardial infarction in females is 38 pg/mL, in males 51 pg/mL. The results should be used in conjunction with clinical conditions of myocardial infarction.(Access High Sensitivity Troponin I Instructions For Use, [employer], December 2017) Performed By: #### 1 9437101 ####[facility] [address] [place] [address] Vitamin D 25 Hydroxyon 11-29 25-hydroxyvitamin D3 [Mass/Vol] ng/mL Low 30.0-100.0 [facility] Comment on above: Result Comment: Vit palacios D deficiency has been defined as a level of serum 25-OH vitamin D less than 20 ng/mL (1,2) by the [place] of Medicine and an Endocrine Society practice guideline. The Endocrine Society further defined vitamin D insufficiency as a level between 21 and 29 ng/mL (2). 1. IOM ([place] of Medicine). 2010. Dietary reference intakes for calcium and D. [place]: The National Academies Press. 2. Patricia MF, [place], Reji PETERS, et al. Evaluation, treatment, and prevention of vitamin D deficiency: an Endocrine Society clinical practice guideline. JCEM. 2010; 96 (7):1911-30. Performed By: #### 2 304388, 6653730, 1239877, 87124023, 13290817, 1402817, 19310818, 9114110, 65085505, 037166735, 0757935, 7227206 ####[facility] [address] [place] [address] eGFRon 11-29-2022 GFR/1.73 sq M.predicted among non-blacks MDRD (S/P/Bld) [Vol rate/Area] 69 mL/min/1.73 m2 Normal >=59 [facility] Comment on above: Order Comment: Order added by Discern Expert. Result Comment: [employer] S[employer] earnest kidney disease could be indicated at eGFR's of less than 60 mL/min/1.73m2. Kidney failure is indicated at less than 15 mL/min/1.73m2. Performed By: #### 2 129249, 9968519, 7487688, 30466101, 18220069, 8129395, 12943222, 1914124, 02061128, 348876947, 3858110, 6245686 ####[facility] [address] [place] [address] Auto Diffon 11-28-2022 Basophils/100 WBC (Bld) 0.7 % Normal 0.0-2.0 [facility] Comment on above: Order Comment: Order Added by Discern Expert. Performed By: #### 1 4130381, 7960193, 1145326, 6068997, 59085003 ####[address] [place] [address] Basophils/Leukocytes Auto (Bld) [Pure # fraction] 0.0 E9/L Normal 0.0-0.2 [facility] Comment on above: Order Comment: Order Added by Discern Expert. Performed By: #### 1 1379596, 4375202, 5624951, 1640620, 08050905 ####[address] [address] Eosinophils/100 WBC (Bld) 7.4 % Normal 0.0-8.0 [facility] Comment on above: Order Comment: Order Added by Discern Expert. Performed By: #### 1 9009730, 5265001, 4063489, 7026645, 59276476 ####[address] [address] Eosinophils/Leukocytes Auto (Bld) [Pure # fraction] 0.5 E9/L Normal 0.0-0.5 [facility] Comment on above: Order Comment: Order Added by Discern Expert. Performed By: #### 1 4728546, 7020674, 4462262, 1305398, 54947048 ####[address] [address] Lymphocytes/100 WBC (Bld) 9.3 % Low 14.0-50.0 [facility] Comment on above: Order Comment: Order Added by Bethany Expert. Performed By: #### 1 0780044, 0787722, 0668323, 9406805, 58978135 ####[address] [address] Lymphocytes/Leukocytes Auto (Bld) [Pure # fraction] 0.7 E9/L Low 1.0-4.0 [facility] Comment on above: Order Comment: Order Added by eBthany Expert. Performed By: #### 1 8624198, 4327238, 9475257, 0700162, 30920101 ####[address] [address] Monocytes/100 WBC (Bld) 6.6 % Normal 4.0-14.0 [facility] Comment on above: Order Comment: Order Added by Discern Expert. Performed By: #### 1 6348451, 5339293, 3330282, 4991018, 92565262 ####[facility] [address] [place] [address] Monocytes/Leukocytes Auto (Bld) [Pure # fraction] 0.5 E9/L Normal 0.2-1.0 [facility] Comment on above: Order Comment: Order Added by Discern Expert. Performed By: #### 1 3041996, 0310703, 5683547, 5073498, 22722801 ####[address] [place] [address] Neutrophils/100 WBC (Bld) 76.0 % High 36.0-75.0 [facility] Comment on above: Order Comment: Order Added by Bethany Expert. Performed By: #### 1 8618384, 3635832, 5911464, 0778643, 18529326 ####[facility] [address] [place] [address] Neutrophils/Leukocytes Auto (Bld) [Pure # fraction] 5.4 E9/L Normal 2.0-7.5 [facility] Comment on above: Order Comment: Order Added by Discern Expert. Performed By: #### 1 3985369, 7510282, 6796866, 7997049, 84441017 ####[facility] [address] [place] [address] BMPon 11-28-2022 Creatinine [Mass/Vol] 1.0 mg/dL Normal 0.5-1.3 [facility] Comment on above: Performed By: #### 1 5241919, 8438195, 4323871, 2303409, 22079027 ####[address] [place] [address] Urea nitrogen [Mass/Vol] 16 mg/dL Normal 5-21 [facility] Comment on above: Performed By: #### 1 5066553, 1045640, 9723029, 0891594, 02124481 ####[facility] [address] [place] [address] Urea nitrogen/Creatinine [Mass ratio] 16 No Units Normal 10-20 [facility] Comment on above: Performed By: #### 1 8574429, 6248347, 4452056, 8921190, 46738784 ####[facility] [address] [place] [address] Anion gap [Moles/Vol] 10 mmol/L Normal 6-16 [facility] Comment on above: Performed By: #### 1 4830913, 5460618, 1253290, 9491706, 27132142 ####[facility] [address] [place] [address] Calcium [Mass/Vol] 8.8 mg/dL Low 8.9-11.1 [facility] Comment on above: Performed By: #### 1 5266382, 2475320, 6256375, 4777703, 31079768 ####[facility] [address]N[place] [place] [address] Chloride [Moles/Vol] 105 mmol/L Normal 101-111 [facility] Comment on above: Performed By: #### 1 4802468, 5623482, 1013030, 4592815, 83707190 ####[facility] [address]Nconne[address] [place] [address] CO2 [Moles/Vol] 28 mmol/L Normal 21-31 [facility] Comment on above: Performed By: #### 1 3130617, 5671715, 1774669, 3812434, 95622913 ####[facility] [address]Nconne[address] [place] [address] Glucose [Mass/Vol] 114 mg/dL Normal 55-199 [facility] Comment on above: Result Comment: If t his glucose result represents a fasting glucose, interpretation should refer to the following reference range: 55-99 mg/dL Performed By: #### 1 9113927, 4914809, 2458290, 7170674, 94496180 ####[facility] [address] [place] [address] Potassium [Moles/Vol] 4.1 mmol/L Normal 3.5-5.3 [facility] Comment on above: Performed By: #### 1 6403217, 7574469, 1462979, 4404260, 24439430 ####[facility] [address] [place] [address] Sodium [Moles/Vol] 139 mmol/L Normal 135-145 [facility] Comment on above: Performed By: #### 1 9862272, 9190664, 6849938, 4469573, 43929165 ####[facility] [address] [place] [address] Blood Gas Art, with Lytes, G christal, [place] 11-28-2022 a/A Ratio Art 53.40 % Normal >=0.80 [facility] Comment on above: Performed By: #### 4 03814777 ####[facility] [address] [place] [address] AaDO2 Art 64.9 mmHg High 5.0-15.0 [facility] Comment on above: Performed By: #### 4 28461162 ####[facility] [address] [place] [address] Allens Test Positive Normal [facility] Comment on above: Performed By: #### 4 13671009 ####[facility] [address] [place] [address] Base Excess Arterial 2.9 mmol/L Normal >=2.8 [facility] Comment on above: Performed By: #### 4 20982568 ####[facility] [address] [place] [address] cCa2+ Art 4.88 mg/dL Normal 4.40-5.30 [facility] Comment on above: Performed By: #### 4 11821200 ####[facility] [address] [place] [address] cCl- Art 103.0 mmol/L Normal 101.0-111.0 [facility] Comment on above: Performed By: #### 4 67355696 ####[facility] [address] [place] [address] cGlu Art 98 mg/dL Normal 55-99 [facility] Comment on above: Performed By: #### 4 85860171 ####[facility] [address] [place] [address] cK+ Art 3.6 mmol/L Normal 3.5-5.3 [facility] Comment on above: Performed By: #### 4 46176870 ####[address] [place] [address] cLac Art .6 mmol/L Normal .5-2.2 [facility] Comment on above: Performed By: #### 4 62170379 ####[address] [place] [address] grinder lap+ Art 139.0 mmol/L Normal 135.0-145.0 [facility] Comment on above: Performed By: #### 4 52616454 ####[address] [place] [address] Drawn by nmb Invalid Interpretation Code [facility] Comment on above: Performed By: #### 4 93142076 ####[address] [place] [address] FCOHb Art 1.5 % Normal 1.5-4.9 [facility] Comment on above: Result Comment: Refe rence rangeNonsmoker <1.5%Smoker <5.0%Heavy Smoker <9.0% Performed By: #### 4 13256606 ####[facility] [address] [place] [address] FIO2 BG 28 Invalid Interpretation Code [facility] Comment on above: Performed By: #### 4 78043850 ####[facility] [address] [place] [address] Flow 2 Invalid Interpretation Code [facility] Comment on above: Performed By: #### 4 23468009 ####[facility] [address] [place] [address] FMetHb Art 0.3 % Normal 0.0-1.9 [facility] Comment on above: Performed By: #### 4 72842076 ####[address] [address] FO2Hb Art 93.7 % Normal 93.0-100.0 [facility] Comment on above: Performed By: #### 4 13083085 ####[address] [address] HCO3 (Bld) [Moles/Vol] 26.9 mmol/L High 22.0-26.0 [facility] Comment on above: Performed By: #### 4 21935928 ####[address] [address] Hemoglobin (Bld) [Mass/Vol] 11.9 g/dL Low 12.0-17.0 [facility] Comment on above: Performed By: #### 4 69660893 ####[address] [address] Oxygen saturation in Blood 95.4 % Normal 95.0-100.0 [facility] Comment on above: Performed By: #### 4 96587658 ####[address] [address] P CO2 Arterial 47.6 mmHg High 35.0-45.0 [facility] Comment on above: Performed By: #### 4 67663569 ####[address] [address] P O2 Arterial 74.3 mmHg Low 80.0-100.0 [facility] Comment on above: Performed By: #### 4 35069168 ####[address] [place] [address] pH Arterial 7.387 Normal 7.350-7.450 [facility] Comment on above: Performed By: #### 4 33975065 ####[address] [address] Sample Site R Radial Normal [facility] Comment on above: Performed By: #### 4 26599227 ####[facility] [address] [place] [address] Sample Type Arterial Draw Normal [facility] Comment on above: Performed By: #### 4 03485808 ####[facility] [address] [place] [address] CBC w/ Auto Diffon 3 Erythrocyte distribution width (RBC) [Ratio] 14.8 % High 10.9-14.2 [facility] Comment on above: Performed By: #### 1 3441269, 0880783, 3502490, 1685156, 19211772 ####[address] [place] [address] Hematocrit (Bld) [Volume fraction] 37.3 % Low 37.7-49.0 [facility] Comment on above: Performed By: #### 1 0902832, 2588611, 2247697, 9423020, 43892850 ####[facility] [address] [place] [address] Hemoglobin (Bld) [Mass/Vol] 12.3 g/dL Low 13.5-17.5 [facility] Comment on above: Performed By: #### 1 4747166, 1016202, 1777490, 1154369, 37943769 ####[facility] [address] [place] [id number] MCH (RBC) [Entitic mass] 28.3 pg Normal 27.0-34.0 [facility] Comment on above: Performed By: #### 1 [id number], 3113738, 5403332, 5768569, 14404985 ####[facility] [address] [place] [address] MCHC (RBC) [Mass/Vol] 33.0 g/dL Normal 31.4-36.0 [facility] Comment on above: Performed By: #### 1 5676607, 9307833, 1459574, 9454376, 23222117 ####[facility] [address] [place] [address] MCV (RBC) [Entitic vol] 85.9 fL Normal 80.0-100.0 [facility] Comment on above: Performed By: #### 1 3252556, 7568532, 7509046, 0870610, 00891421 ####[address] [place] [address] Platelet mean volume (Bld) [Entitic vol] 10.4 fL Normal 6.4-10.8 [facility] Comment on above: Performed By: #### 1 7993606, 9542570, 4070623, 5292248, 90182674 ####[address] [address] Platelets (Bld) [#/Vol] 189.0 E9/L Normal 150.0-500.0 [facility] Comment on above: Performed By: #### 1 2619024, 1926169, 9786295, 7936329, 06609951 ####[address] [address] RBC (Bld) [#/Vol] 4.3 E12/L Normal 4.3-5.9 [facility] Comment on above: Performed By: #### 1 3247470, 0953661, 7390695, 8342377, 80612111 ####[address] [address] WBC corrected for nucl RBC Auto (Bld) [#/Vol] 7.1 E9/L Normal 4.0-11.0 [facility] Comment on above: Performed By: #### 1 8693830, 2621951, 9306444, 6513707, 73566679 ####[address] [address] CHEMISTRYOrdered By: SYSTEM SYSTEM on 11-28-2022 Troponin I.cardiac [Mass/Vol] 32.60 pg/mL Normal 15.90 - 38.40 pg/mL [facility] [place] [facility] Troponin I.cardiac [Mass/Vol] 26.90 pg/mL Normal 15.90 - 38.40 pg/mL [facility] [place] Remisol Consent for Treatmenton Consent for Treatment [id number]#1 .00CD:127 Normal [facility] ED Note-Physicianon 11-29-19 ED Note-Physician Normal [facility] Comment on above: Result Comment: [...] 2.2 mmol/L FT Resp Auto SS grinder lap+ Art 139.0 mmol/L Normal 135.0 - 145.0 [...] 26.9 mmol/L High 22.0 - 26.0 mmol/L [facility] [place] Resp Auto SS Hemoglobin (Bld) [Mass/Vol] 11.9 g/dL Low 12.0 - 17.0 gm/dL [facility] Resp Auto SS P CO2 Arterial 47.6 mm[Hg] High 35.0 - 45.0 mmHg [facility] Resp Auto SS P O2 Arterial 74.3 mm[Hg] Low 80.0 - 100.0 mmHg FT Resp Auto SS pH Arterial 7.387 Normal 7.350 - 7.450 [facility] [place] Resp Auto SS Sample Site R Radial (11/28/22 6:55 PM) Normal [facility] [place] Resp Auto SS Sample Type Arterial Draw (11/28/22 6:55 PM) Normal [facility] [place] Resp Auto SS HEMATOLOGYOrdered By: SYSTEM SYSTEM [...] [facility] HemeAutoSS Pre-Arrival Noteon Pre-Arrival Note Normal [facility] Troponin 0 Hr.on 11-28-2022 Troponin I.cardiac [Mass/Vol] 21.80 pg/mL Normal 15.90-38.40 [facility] Comment on above: Result Comment: The 95% CI (Confidence Interval) PPV (Positive Predictive Value) for myocardial infarction in females is 38 pg/mL, in males 51 pg/mL. The results should be used in conjunction with clinical conditions of myocardial infarction.(Access High Sensitivity Troponin I Instructions For Use, Claudia Luis, December 2017) Performed By: #### 1 7301429, 4456734, 9831404, 5421957, 49574755 ####[facility] [address] [place] [address] Troponin 3 Hr.on 11-28-2022 Troponin I.cardiac [Mass/Vol] 26.90 pg/mL Normal 15.90-38.40 [facility] Comment on above: Result Comment: The 95% CI (Confidence Interval) PPV (Positive Predictive Value) for myocardial infarction in females is 38 pg/mL, in males 51 pg/mL. The results should be used in conjunction with clinical conditions of myocardial infarction.(Access High Sensitivity Troponin I Instructions For Use, Claudia Luis, December 2017) Performed By: #### 1 [id number] ####[address] [place] [address] UA With Cult Reflexon 2022 Crystals LM Ql (Urine sed) Present Normal [facility] Comment on above: Performed By: #### 1 3092161 ####[place] 4[address]757 Epithelial cells.squamous LM.HPF (Urine sed) [#/Area] 0-2 Normal 0-2 [facility] Comment on above: Performed By: #### 1 7949743 ####[place] [address] Lismore.plasma/Lismore.R BC (Bld) [Mass ratio] 0-3 Normal 0-3 [facility] Comment on above: Performed By: #### 1 6404835 ####[address] [address] Mucus Ql (Urine sed) TRACE Normal [facility] Comment on above: Performed By: #### 1 8267059 ####[address] [address] WBC LM.HPF (Urine sed) [#/Area] 0-5 Normal 0-5 [facility] Comment on above: Performed By: #### 1 5609477 ####[address] [address] Bilirubin Ql (U) Negative Normal Negative [facility] Comment on above: Performed By: #### 1 3388112 ####[address] [address] Clarity (U) CLEAR Normal Clear [facility] Comment on above: Performed By: #### 1 9185138 ####[facility] [address] [place] [address] Color (U) YELLOW Normal Yellow [facility] Comment on above: Performed By: #### 1 5311577 ####[facility] [address] [place] [address] Glucose Test strip (U) [Mass/Vol] Negative Normal Negative [facility] Comment on above: Performed By: #### 1 5154700 ####[facility] [address] [place] [address] Hemoglobin Ql (U) Negative Normal Negative [facility] Comment on above: Performed By: #### 1 3740609 ####[facility] [address] [place] [address] Ketones (U) [Mass/Vol] Negative Normal Negative [facility] Comment on above: Performed By: #### 1 7210432 ####[facility] [address] [place] [address] Nitrite Ql (U) Negative Normal Negative [facility] Comment on above: Performed By: #### 1 5833984 ####[facility] [address] [place] [address] pH (U) 6.0 [pH] Invalid Interpretation Code 5.0-9.0 [facility] Comment on above: Performed By: #### 1 7103959 ####[facility] [address] [place] [address] Protein (U) [Mass/Vol] 2+ Abnormal Negative [facility] Comment on above: Performed By: #### 1 6736699 ####[address] [place] [address] Specific gravity (U) [Rel density] 1.025 Invalid Interpretation Code 1.005-1.030 [facility] Comment on above: Performed By: #### 1 1979181 ####[address] [place] [address] Type of Urine collection method Clean Catch Normal [facility] Comment on above: Performed By: #### 1 0535973 ####[facility] [address] [place] [address] Urobilinogen Qn (U) 0.2 {Lei'U}/dL Normal 0.0-1.0 [facility] Comment on above: Performed By: #### 1 3240584 ####[facility] [address] [place] [address] WBC Auto Ql (U) Negative Normal Negative [facility] Comment on above: Performed By: #### 1 8731302 ####[facility] [address] [place] [address] URINALYSISOrdered By: Emily Suero on 11-28-2022 Bilirubin [...] PM) Normal Negative [facility] UA Auto SS Lismore.plasma/Lismore.R BC (Bld) [Mass ratio] 0-3 /HPF Normal [...] FT UA Auto SS Urobilinogen Qn (U) 0.1516403 {Lei'U}/dL Normal 0.0 - 1.0 EU/dL FT UA Auto SS WBC Auto Ql (U) Negative (11/28/22 5:55 PM) Normal Negative [facility] UA Auto SS WBC LM.HPF (Urine sed) [#/Area] 0-5 /HPF Normal 0-5/HPF FT UA Auto SS XR Chest Single Viewon 11-28 XR Chest Single View Normal [facility] eGFRon 11-28-2022 GFR/1.73 sq M.predicted among non-blacks MDRD (S/P/Bld) [Vol rate/Area] 77 mL/min/1.73 m2 Normal >=59 [facility] Comment on above: Order Comment: Order added by Discern Expert. Result Comment: [employer] earnest kidney disease could be indicated at eGFR's of less than 60 mL/min/1.73m2. Kidney failure is indicated at less than 15 mL/min/1.73m2. Performed By: #### 1 0120529, 8382014, 0496663, 4013122, 59045852 ####[facility] [address] [place] [address] CHEMISTRYOrdered By: SYSTEM SYSTEM on 11-26-2022 Albumin [...] 2.07 m[IU]/L Normal 0.34 - 5.60 mcIU/mL [facility] Remisol Urea nitrogen [Mass/Vol] 18 mg/dL Normal 5 - 21 mg/dL [facility] Remisol Urea nitrogen/Creatinine [Mass ratio] 20 mg/mg Normal 10 - 20 [facility] Remisol CMPon 11-26-2022 Albumin [Mass/Vol] 3.7 g/dL Normal 3.3-5.0 [facility] Comment on above: Performed By: #### 2 375744, 2232045, 51272271, 1433012 ####[facility] [address] [place] [address] Albumin/Globulin (S) [Mass conc ratio] 1.2 Normal 1.1-2.2 [facility] Comment on above: Performed By: #### 2 615044, 4531309, 82757984, 1497009 ####[facility] [address] [place] [address] ALP [Catalytic activity/Vol] 38 Int._Unit/L Normal 21-98 [facility] Comment on above: Performed By: #### 2 791650, 9145028, 56747099, 4512813 ####[facility] [address] [place] [address] ALT No additional P-5'-P [Catalytic activity/Vol] 11 Int._Unit/L Normal 6-46 [facility] Comment on above: Performed By: #### 2 900681, 8089515, 53759096, 1679985 ####[facility] [address] [place] [address] Anion gap [Moles/Vol] 14 mmol/L Normal 6-16 [facility] Comment on above: Performed By: #### 2 180957, 3791291, 83559455, 9168474 ####[facility] [address] [place] [address] AST [Catalytic activity/Vol] 15 Int._Unit/L Normal 5-43 [facility] Comment on above: Performed By: #### 2 788576, 7638892, 43167432, 8215172 ####[facility] [address] [place] [address] Bilirubin [Mass/Vol] 1.0 mg/dL Normal 0.0-1.1 [facility] Comment on above: Performed By: #### 2 903593, 9096771, 66953887, 3965698 ####[facility] [address] [place] [address] Calcium [Mass/Vol] 9.2 mg/dL Normal 8.9-11.1 [facility] Comment on above: Performed By: #### 2 497237, 0417231, 46926321, 9228951 ####[facility] [address] [place] [address] Chloride [Moles/Vol] 107 mmol/L Normal 101-111 [facility] Comment on above: Performed By: #### 2 583153, 7443441, 34131694, 4117779 ####[facility] [address] [place] [address] CO2 [Moles/Vol] 28 mmol/L Normal 21-31 [facility] Comment on above: Performed By: #### 2 910735, 7760818, 77153072, 5677175 ####[facility] [address] [place] [address] Creatinine [Mass/Vol] 0.9 mg/dL Normal 0.5-1.3 [facility] Comment on above: Performed By: #### 2 535436, 7302573, 85582311, 4697657 ####[facility] [address] [place] [address] Globulin (S) [Mass/Vol] 3.2 g/dL Normal 1.4-4.0 [facility] Comment on above: Performed By: #### 2 873065, 1651140, 47844565, 8300826 ####[facility] [address] [place] [address] Glucose [Mass/Vol] 95 mg/dL Normal 55-199 [facility] Comment on above: Result Comment: If t his glucose result represents a fasting glucose, interpretation should refer to the following reference range: 55-99 mg/dL Performed By: #### 2 379541, 8457236, 42155794, 6372818 ####[facility] [address] [place] [address] Potassium [Moles/Vol] 4.2 mmol/L Normal 3.5-5.3 [facility] Comment on above: Performed By: #### 2 756809, 5438451, 48872899, 4521638 ####[facility] [address] [place] [address] Protein [Mass/Vol] 6.9 g/dL Normal 6.0-7.8 [facility] Comment on above: Performed By: #### 2 770280, 9865276, 76218169, 4882490 ####[facility] [address] [place] [address] Sodium [Moles/Vol] 145 mmol/L Normal 135-145 [facility] Comment on above: Performed By: #### 2 309252, 2117115, 54410026, 6219371 ####[facility] [address] [place] [address] Urea nitrogen [Mass/Vol] 18 mg/dL Normal 5-21 [facility] Comment on above: Performed By: #### 2 646466, 2585285, 77590176, 7579302 ####[facility] [address] [place] [address] Urea nitrogen/Creatinine [Mass ratio] 20 No Units Normal 10-20 [facility] Comment on above: Performed By: #### 2 485540, 2272480, 91151034, 5916589 ####[facility] [address] [place] [address] Consent for Treatmenton 07-0 Consent for Treatment [id number] [facility] [id number]#1 .00CD:127 Normal [facility] Lipid Panelon 11-26-2022 Cholesterol [Mass/Vol] 112 mg/dL Low 120-200 [facility] Comment on above: Performed By: #### 2 242265, 0921837, 11003657, 1529647 ####[facility] [address] [place] [address] Cholesterol in HDL [Mass/Vol] 49 mg/dL Invalid Interpretation Code [facility] Comment on above: Result Comment: HDL > or equal to 60 mg/dL: Low cardiovascular riskHDL < 40 mg/dL : High cardiovascular risk Performed By: #### 2 190139, 3900975, 21836127, 5443852 ####[facility] [address] [place] [address] Cholesterol in LDL [Mass/Vol] 42 mg/dL Normal <=129 [facility] Comment on above: Performed By: #### 2 004266, 1005305, 58603738, 1867415 ####[facility] [address] [place] [address] Cholesterol in VLDL [Mass/Vol] 14 mg/dL Normal 7-40 [facility] Comment on above: Performed By: #### 2 688261, 9446859, 61355883, 2542111 ####[facility] [address] [place] [address] Triglyceride [Mass/Vol] 69 mg/dL Normal <=149 [facility] Comment on above: Performed By: #### 2 833781, 2187862, 77776581, 7709578 ####[facility] [address] [place] [address] Physician Orderon 11-26-2022 Physician Order [id number]# 1.00CD:127 Normal [facility] TSHon 11-26-2022 TSH Qn 2.07 m[IU]/L Normal 0.34-5.60 [facility] Comment on above: Performed By: #### 2 308684, 7622158, 98037243, 5190661 ####[facility] [address] [place] [address] eGFRon 11-26-2022 GFR/1.73 sq M.predicted among non-blacks MDRD (S/P/Bld) [Vol rate/Area] 87 mL/min/1.73 m2 Normal >=59 [facility] Comment on above: Order Comment: Order added by Discern Expert. Result Comment: [employer] earnest kidney disease could be indicated at eGFR's of less than 60 mL/min/1.73m2. Kidney failure is indicated at less than 15 mL/min/1.73m2. Performed By: #### 2 503092, 5032460, 96570754, 9845015 ####[facility] [address] [place] [address] Discharge Instructionson Discharge Instructions [id number]#1 .00CD:127 Normal [facility] Transfer Documentson 023 Transfer Documents [id number]#1 .00CD:127 Normal [facility] Capillary Glucose POCon Glucose [Mass/Vol] 166 mg/dL High 55-99 [facility] Comment on above: Result Comment: Gareth guerrero RN/ Performed By: #### 2 07611297 ####[facility] [address] [place] [address] Glucose [Mass/Vol] 119 mg/dL High 55-99 [facility] Comment on above: Result Comment: Repe at Test Performed By: #### 2 98757491 ####[facility] [address] [place] [address] Discharge Note-Nursingon Discharge Note-Nursing Normal [facility] EilC0cpa 09-28-2022 HbA1c (Bld) [Mass fraction] 6.4 % High <=5.9 [facility] Comment on above: Order Comment: IF UN ABLE TO ADD TO ED LABS Performed By: #### 2 570265, 066292448 ####[facility] [address] [place] [address] Inpatient Clinical Summaryon 09-28-2022 Inpatient Clinical Summary Normal [facility] Inpatient Patient Summaryon 09-28-2022 Inpatient Patient Summary Normal [facility] Inpatient Patient Summary Normal [facility] Interdisciplinary Note - Satnosh e Manageron 09-28-2022 Interdisciplinary Note - Snipper Normal [facility] Comment on above: Result Comment: Elec tronically Signed By: Jose HAYDEN, Norma\.br\Date and Time Signed: 09/28/22 15:54 EDT Monitor Recordon 09-28-2022 Monitor Record [id number]# 1.00CD:127 Normal [facility] Capillary Glucose POCon Glucose [Mass/Vol] 192 mg/dL High 55-99 [facility] Comment on above: Result Comment: Gareth GARDINER Performed By: #### 2 91136280 ####[facility] [address] [place] [address] Glucose [Mass/Vol] 130 mg/dL High 55-99 [facility] Comment on above: Result Comment: No C overage Given Performed By: #### 2 08825533 ####[facility] [address] [place] [address] Glucose [Mass/Vol] 202 mg/dL High 55-99 [facility] Comment on above: Result Comment: Gareth GARDINER Performed By: #### 2 61878008 ####[facility] [address] [place] [address] Glucose [Mass/Vol] 89 mg/dL Normal 55-99 [facility] Comment on above: Result Comment: Gareth GARDINER Performed By: #### 2 86417960 ####[facility] [address] [place] [address] Insurance Correspondence Off iceon 09-27-2022 Insurance Correspondence Office [id number]# 1.00CD:127 Normal [facility] Interdisciplinary Note - Santosh e Manageron 09-27-2022 Interdisciplinary Note - Snipper Normal [facility] Comment on above: Result Comment: Elec tronically Signed By: Natalie Grant\Date and Time Signed: 09/27/22 14:56 EDT Interdisciplinary Note - PTo n 09-27-2022 Interdisciplinary Note - PT Pt is safe and indep w/bed mobility, transfers and gait w/FWW. Pt uses FWW at home; he is at his baseline. NO PT needs at this time. No needs anticipated upon d/c home. AM-PAC [facility] Lyteson 09-27-2022 Anion gap [Moles/Vol] 9 mmol/L Normal 6-16 [facility] Comment on above: Performed By: #### 2 707272, [id number] ####[facility] [address] [place] [address] Chloride [Moles/Vol] 105 mmol/L Normal 101-111 [facility] Comment on above: Performed By: #### 2 345738, 285553710 ####[facility] [address] [place] [address] CO2 [Moles/Vol] 26 mmol/L Normal 21-31 [facility] Comment on above: Performed By: #### 2 197520, 450449119 ####[facility] [address] [address] Potassium [Moles/Vol] 4.2 mmol/L Normal 3.5-5.3 [facility] Comment on above: Performed By: #### 2 840159, 234687310 ####[facility] [address] [place] [address] Sodium [Moles/Vol] 136 mmol/L Normal 135-145 [facility] Comment on above: Performed By: #### 2 179297, 567836291 ####[facility] [address] [place] [address] Monitor Recordon 09-27-2022 Monitor Record [id number]# 1.00CD:127 Normal [facility] Monitor Record [id number]# 1.00CD:127 Normal [facility] Progress Note-Nurseon 2022 Progress Note-Nurse Normal [facility] Progress Note-Physicianon Progress Note-Physician Normal [facility] Comment on above: Result Comment: Elec tronically Signed By: Adeline COLEMAN\.br\Date and Time Signed: 09/27/22 15:34 EDT\.br\Electronically Co-Signed By: Adeline COLEMAN\.br\Date and Time Co-Signed: 09/27/22 15:37 EDT\.br\Electronically Co-Signed By: Ganesh Minaya MD\.br\Date and Time Co-Signed: 09/27/22 18:58 EDT Auto Diffon 09-26-2022 Basophils/100 WBC (Bld) 0.5 % Normal 0.0-2.0 [facility] Comment on above: Order Comment: Order Added by Discern Expert. Performed By: #### 1 3309987, 9689060, 9354063, 6244500 ####[facility] [address] [place] [address] Basophils/Leukocytes Auto (Bld) [Pure # fraction] 0.0 E9/L Normal 0.0-0.2 [facility] Comment on above: Order Comment: Order Added by Discern Expert. Performed By: #### 1 0312595, 1939190, 1594154, 6854726 ####[facility] [address] [place] [address] Eosinophils/100 WBC (Bld) 3.3 % Normal 0.0-8.0 [facility] Comment on above: Order Comment: Order Added by Discern Expert. Performed By: #### 1 7336986, 8250539, 3333570, 2657041 ####[address] [place] [address] Eosinophils/Leukocytes Auto (Bld) [Pure # fraction] 0.3 E9/L Normal 0.0-0.5 [facility] Comment on above: Order Comment: Order Added by Discern Expert. Performed By: #### 1 7209998, 2844689, 0361349, 3064079 ####[facility] [address] [place] [address] Lymphocytes/100 WBC (Bld) 9.5 % Low 14.0-50.0 [facility] Comment on above: Order Comment: Order Added by Discern Expert. Performed By: #### 1 6392412, 8705448, 3198547, 4604557 ####[address] [place] [address] Lymphocytes/Leukocytes Auto (Bld) [Pure # fraction] 0.8 E9/L Low 1.0-4.0 [facility] Comment on above: Order Comment: Order Added by Discern Expert. Performed By: #### 1 8686426, 1679462, 1017176, 8848943 ####[address] [place] [address] Monocytes/100 WBC (Bld) 7.2 % Normal 4.0-14.0 [facility] Comment on above: Order Comment: Order Added by Discern Expert. Performed By: #### 1 1378209, 7002801, 9137847, 0371783 ####[address] [place] [address] Monocytes/Leukocytes Auto (Bld) [Pure # fraction] 0.6 E9/L Normal 0.2-1.0 [facility] Comment on above: Order Comment: Order Added by Discern Expert. Performed By: #### 1 1071483, 1865025, 6047926, 6071447 ####[address] [place] [address] Neutrophils/100 WBC (Bld) 79.5 % High 36.0-75.0 [facility] Comment on above: Order Comment: Order Added by Discern Expert. Performed By: #### 1 2543101, 1691773, 1710761, 1425305 ####[facility] [address] [place] [address] Neutrophils/Leukocytes Auto (Bld) [Pure # fraction] 6.7 E9/L Normal 2.0-7.5 [facility] Comment on above: Order Comment: Order Added by Discern Expert. Performed By: #### 1 4901247, 0231421, 7017149, 5056675 ####[facility] [address] [place] [address] BMPon 09-26-2022 Creatinine [Mass/Vol] 1.0 mg/dL Normal 0.5-1.3 [facility] Comment on above: Performed By: #### 1 1214983, 5237061, 8175338, 1199784 ####[facility] [address] [place] [address] Urea nitrogen [Mass/Vol] 25 mg/dL High 5-21 [facility] Comment on above: Performed By: #### 1 0080017, 1697264, 1007857, 3079368 ####[facility] [address] [place] [address] Urea nitrogen/Creatinine [Mass ratio] 25 No Units High 10-20 [facility] Comment on above: Performed By: #### 1 [id number], [id number], 4859986, 0984859 ####[facility] [address] [place] [address] Anion gap [Moles/Vol] 10 mmol/L Normal 6-16 [facility] Comment on above: Performed By: #### 1 [id number], 4786875, 8499768, 6542218 ####[facility] [address] [place] [address] Calcium [Mass/Vol] 8.9 mg/dL Normal 8.9-11.1 [facility] Comment on above: Performed By: #### 1 [id number], 7463731, 3431610, 6301695 ####[facility] [address] [place] [address] Chloride [Moles/Vol] 101 mmol/L Normal 101-111 [facility] Comment on above: Performed By: #### 1 [id number], 0472750, 9831910, 8550665 ####[facility] [address] [place] [address] CO2 [Moles/Vol] 26 mmol/L Normal 21-31 [facility] Comment on above: Performed By: #### 1 1092451, 6791638, 5237243, 4256189 ####[facility] [address] [place] [address] Glucose [Mass/Vol] 112 mg/dL Normal 55-199 [facility] Comment on above: Result Comment: If t his glucose result represents a fasting glucose, interpretation should refer to the following reference range: 55-99 mg/dL Performed By: #### 1 [id number], 0984279, 3024813, 1058266 ####[facility] [address] [place] [address] Potassium [Moles/Vol] 4.1 mmol/L Normal 3.5-5.3 [facility] Comment on above: Performed By: #### 1 0333392, 8560752, 6630019, 2382999 ####[facility] [address] [place] [address] Sodium [Moles/Vol] 133 mmol/L Low 135-145 [facility] Comment on above: Performed By: #### 1 [id number], 9460472, 5761701, 9226200 ####[facility] [address] [place] [address] CBC w/ Auto Diffon 3 Erythrocyte distribution width (RBC) [Ratio] 14.6 % High 10.9-14.2 [facility] Comment on above: Performed By: #### 1 [id number], 0089451, 4995909, 8437646 ####[facility] [address] [place] [address] Hematocrit (Bld) [Volume fraction] 37.6 % Low 37.7-49.0 [facility] Comment on above: Performed By: #### 1 4586386, 3716436, 9181549, 3125682 ####[facility] [address] [place] [address] Hemoglobin (Bld) [Mass/Vol] 12.5 g/dL Low 13.5-17.5 [facility] Comment on above: Performed By: #### 1 1276799, 6609533, 8983448, 4670694 ####[address] [address] MCH (RBC) [Entitic mass] 28.5 pg Normal 27.0-34.0 [facility] Comment on above: Performed By: #### 1 1367671, 4622829, 2177895, 0550572 ####[address] [address] MCHC (RBC) [Mass/Vol] 33.2 g/dL Normal 31.4-36.0 [facility] Comment on above: Performed By: #### 1 7130298, 1687013, 0921051, 4298799 ####[address] [address] MCV (RBC) [Entitic vol] 85.8 fL Normal 80.0-100.0 [facility] Comment on above: Performed By: #### 1 0679298, 7017151, 8687157, 8504636 ####[address] [address] Platelet mean volume (Bld) [Entitic vol] 10.3 fL Normal 6.4-10.8 [facility] Comment on above: Performed By: #### 1 4533154, 8839907, 3460219, 8089099 ####[address] [address] Platelets (Bld) [#/Vol] 164.0 E9/L Normal 150.0-500.0 [facility] Comment on above: Performed By: #### 1 3141663, 8999812, 4304389, 7167788 ####[address] [address] RBC (Bld) [#/Vol] 4.4 E12/L Normal 4.3-5.9 [facility] Comment on above: Performed By: #### 1 0929072, 7509726, 4129972, 0599290 ####[facility] [address] [place] [address] WBC corrected for nucl RBC Auto (Bld) [#/Vol] 8.4 E9/L Normal 4.0-11.0 [facility] Comment on above: Performed By: #### 1 3667772, 0494886, 4208980, 8438801 ####[facility] [address] [place] [address] Capillary Glucose POCon Glucose [Mass/Vol] 161 mg/dL High 55-99 [facility] Comment on above: Result Comment: Gareth guerrero RN/MD Performed By: #### 2 [id number] ####[facility] [address] [place] [address] Consent for Treatmenton Consent for Treatment [phone] 305 [id number]:127 Normal [facility] ED Clinical Summaryon 2022 ED Clinical Summary Normal [facility] ED Note-Physicianon 09-27-19 ED Note-Physician Normal [facility] Comment on above: Result Comment: Elec tronically Signed By: Shane Pan DO\.br\Date and Time Signed: 09/26/22 16:06 EDT ED Patient Education Noteon 09-26-2022 ED Patient Education Note Normal [facility] ED Patient Summaryon 023 ED Patient Summary Normal [facility] EMS Documentationon 09-27-19 EMS Documentation Normal [facility] EMS Documentation Normal [facility] Pre-Arrival Noteon Pre-Arrival Note Normal [facility] Progress Noteson 09-26-2022 Hand Expansion Envelope Maker Authentication Interface Message Text EMERGENCY TRIAGE, TREAT AND TRANSPORT (ET3) DOCUMENTATION OF TELEHEALTH VISIT Date / Time: 09/26/2022929 Name: Clyde Humphrey : 1945 SSN: [id number] EMS Agency: [facility] [x] Verbal consent obtained [] [...] Completed by: Coby Lugo MD Normal [employer] UA With Cult Reflexon 2022 Bilirubin Ql (U) Negative Normal Negative [facility] Comment on above: Order Comment: can s traight cath if needed. Performed By: #### 1 [id number] ####[facility] [address] [place] [address] Clarity (U) CLEAR Normal Clear [facility] Comment on above: Order Comment: can s traight cath if needed. Performed By: #### 1 [id number] ####[facility] [address] [place] [address] Color (U) YELLOW Normal Yellow [facility] Comment on above: Order Comment: can s traight cath if needed. Performed By: #### 1 7173160 ####[facility] [address] [place] [address] Epithelial cells.squamous LM.HPF (Urine sed) [#/Area] 0-2 Normal 0-2 [facility] Comment on above: Order Comment: can s traight cath if needed. Performed By: #### 1 6434817 ####[facility] [address] [place] [address] Glucose Test strip (U) [Mass/Vol] Negative Normal Negative [facility] Comment on above: Order Comment: can s traight cath if needed. Performed By: #### 1 5920970 ####[facility] [address] [place] [address] Hemoglobin Ql (U) Negative Normal Negative [facility] Comment on above: Order Comment: can s traight cath if needed. Performed By: #### 1 1766578 ####[facility] [address] [place] [address] Ketones (U) [Mass/Vol] Negative Normal Negative [facility] Comment on above: Order Comment: can s traight cath if needed. Performed By: #### 1 7607196 ####[facility] [address] [place] [address] Lismore.plasma/Lismore.R BC (Bld) [Mass ratio] 0-3 Normal 0-3 [facility] Comment on above: Order Comment: can s traight cath if needed. Performed By: #### 1 5616864 ####[facility] [address] [place] [address] Nitrite Ql (U) Negative Normal Negative [facility] Comment on above: Order Comment: can s traight cath if needed. Performed By: #### 1 0316687 ####[facility] [address] [place] [address] pH (U) 5.5 [pH] Invalid Interpretation Code 5.0-9.0 [facility] Comment on above: Order Comment: can s traight cath if needed. Performed By: #### 1 [id number] ####[facility] [address] [place] [address] Protein (U) [Mass/Vol] Negative Normal Negative [facility] Comment on above: Order Comment: can s traight cath if needed. Performed By: #### 1 [id number] ####[facility] [address] [place] [address] Specific gravity (U) [Rel density] 1.025 Invalid Interpretation Code 1.005-1.030 [facility] Comment on above: Order Comment: can s traight cath if needed. Performed By: #### 1 2390540 ####[address] [address] Type of Urine collection method Clean Catch Normal [facility] Comment on above: Order Comment: can s traight cath if needed. Performed By: #### 1 4389998 ####[place] [address]757 Urobilinogen Qn (U) 1.0 {Lei'U}/dL Normal 0.0-1.0 [facility] Comment on above: Order Comment: can s traight cath if needed. Performed By: #### 1 1594399 ####[facility] [address] [place], [place] [address] WBC Auto Ql (U) Negative Normal Negative [facility] Comment on above: Order Comment: can s traight cath if needed. Performed By: #### 1 1476796 ####[place] 4697757 WBC LM.HPF (Urine sed) [#/Area] 0-5 Normal 0-5 [facility] Comment on above: Order Comment: can s traight cath if needed. Performed By: #### 1 0932449 ####[address] [address] XR Chest Single Viewon 09-26 XR Chest Single View Normal [facility] eGFRon 09-26-2022 GFR/1.73 sq M.predicted among non-blacks MDRD (S/P/Bld) [Vol rate/Area] 77 mL/min/1.73 m2 Normal >=59 [facility] Comment on above: Order Comment: Order added by Discern Expert. Result Comment: [employer]stery Parts Sorter earnest kidney disease could be indicated at eGFR's of less than 60 mL/min/1.73m2. Kidney failure is indicated at less than 15 mL/min/1.73m2. Performed By: #### 1 [id number], 6757720, 4665281, 3980444 ####[facility] [address] [place] [address] Progress Noteson 09-07-2022 Hand Expansion Envelope Maker Authentication Interface Message Text EMERGENCY TRIAGE, TREAT AND TRANSPORT (ET3) DOCUMENTATION OF TELEHEALTH VISIT Date / Time: 09/06/20222146 Name: Clyde Humphrey : 1945 SSN: [id number] EMS Agency: [facility] [x] Verbal consent obtained [] [...] Completed by: Marcelino Echavarria MD Normal [employer] Q - CULTURE,URINE,ROUTINEon 06-23-2021 CULTURE, URINE, ROUTINE SEE NOTE Normal [facility] Mysql Database Developer Comment on above: Order Comment: [facility] performed at: [facility], [address] [facility], [address] [place] [address], [id number], Security Compliance Specialist: Archie Sinha MD [facility] Collection Date/Time: [id number] [facility] Results Received Date/Time: [id number] [facility] Reported Date/Time: Result Comment: CULT URE, URINE, ROUTINE Micro Number: [id number] Test Status: Final Specimen Source: Urine Specimen Quality: Adequate Result: Mixed genital alvin isolated. These superficial bacteria are not indicative of a urinary tract infection. No further organism identification is warranted on this specimen. If clinically indicated, recollect clean-catch, mid-stream urine and transfer immediately to Urine Culture Transport Tube. Performed By: #### 6 304R #### [facility] Default [address] [place] [address] Q - CULTURE,URINE,ROUTINEon 05-05-2021 CULTURE, URINE, ROUTINE SEE NOTE Normal [facility] Mysql Database Developer Comment on above: Order Comment: [facility] performed at: [facility], [address] , [address] [place] [address], [id number], Security Compliance Specialist: Archie Sinha MD [facility] Collection Date/Time: [id number] [facility] Results Received Date/Time: [id number] [facility] Reported Date/Time: [id number] Result Comment: CULT URE, URINE, ROUTINE Micro Number: [id number] Test Status: Final Specimen Source: Urine Specimen Quality: Adequate Result: Growth of mixed alvin was isolated, suggesting probable contamination. No further testing will be performed. If clinically indicated, recollection using a method to minimize contamination, with prompt transfer to Urine Culture Transport Tube, is recommended. Performed By: #### 6 304R #### [facility] [address] [place] [address] Vital Signs Date Time Vital Sign Value Performing Clinician Facility 01-24-2023 10:00-0400 Hourly Rounding Mbanefo OJUKWU [facility] 01-24-2023 10:00-0400 Promise to Return Mbanefo OJUKWU [facility] 01-24-2023 09:00-0400 Hourly Rounding Mbanefo OJUKWU [facility] 01-24-2023 09:00-0400 Promise to Return Mbanefo OJUKWU [facility] 01-24-2023 08:29-0400 Diastolic blood pressure 73 mm[Hg] Mbanefo OJUKWU [facility] 01-24-2023 08:29-0400 Systolic blood pressure 157 mm[Hg] Mbanefo OJUKWU [facility] 01-24-2023 08:27-0400 Blood Pressure Location Mbanefo OJUKWU [facility] 01-24-2023 08:27-0400 Body temperature 97.7 [degF] Mbanefo OJUKWU [facility] 01-24-2023 08:27-0400 Diastolic blood pressure 73 mm[Hg] Mbanefo OJUKWU [facility] 01-24-2023 08:27-0400 Heart rate 82 /min Mbanefo OJUKWU [facility] 01-24-2023 08:27-0400 Respiratory rate 16 /min Mbanefo OJUKWU [facility] 01-24-2023 08:27-0400 Systolic blood pressure 157 mm[Hg] Mbanefo OJUKWU [facility] 01-24-2023 08:00-0400 Hourly Rounding Mbanefo OJUKWU [facility] 01-24-2023 08:00-0400 Promise to Return Mbanefo OJUKWU [facility] 01-24-2023 00:05-0400 Blood Pressure Location Mbanefo OJUKWU [facility] 01-24-2023 00:05-0400 Body temperature 97.7 [degF] Mbanefo OJUKWU [facility] 01-24-2023 00:05-0400 Diastolic blood pressure 76 mm[Hg] Mbanefo OJUKWU [facility] 01-24-2023 00:05-0400 Heart rate 83 /min Mbanefo OJUKWU [facility] 01-24-2023 00:05-0400 Mean blood pressure 99 mm[Hg] Mbanefo OJUKWU [facility] 01-24-2023 00:05-0400 SaO2% (BldA) [Mass fraction] 97 % Mbanefo OJUKWU [facility] 01-24-2023 00:05-0400 Systolic blood pressure 144 mm[Hg] Mbanefo OJUKWU [facility] 01-23-2023 19:36-0400 Heart rate 81 /min Mbanefo OJUKWU [facility] 01-23-2023 19:36-0400 SaO2% (BldA) [Mass fraction] 96 % Mbanefo OJUKWU [facility] 01-23-2023 19:36-0400 Body temperature 97.34 [degF] Mbanefo OJUKWU [facility] 01-23-2023 19:34-0400 Mean blood pressure 83 mm[Hg] Mbanefo OJUKWU [facility] 01-23-2023 13:00-0400 Body temperature 98.06 [degF] Mbanefo OJUKWU [facility] 01-23-2023 06:55-0400 Blood Pressure Location Mbanefo OJUKWU [facility] 01-23-2023 06:55-0400 Mean blood pressure 89 mm[Hg] Mbanefo OJUKWU [facility] 01-23-2023 06:55-0400 Respiratory rate 16 /min Mbanefo OJUKWU [facility] 01-23-2023 06:55-0400 SaO2% (BldA) [Mass fraction] 93 % Mbanefo OJUKWU [facility] 01-22-2023 23:00-0400 Body temperature 97.88 [degF] Mbanefo OJUKWU [facility] 01-22-2023 23:00-0400 Mean blood pressure 82 mm[Hg] Mbanefo OJUKWU [facility] 01-22-2023 23:00-0400 Respiratory rate 18 /min Mbanefo OJUKWU [facility] 01-22-2023 18:37-0400 Body temperature 97.52 [degF] Mbanefo OJUKWU [facility] 01-22-2023 18:36-0400 Mean blood pressure 81 mm[Hg] Mbanefo OJUKWU [facility] 01-22-2023 16:09-0400 Mean blood pressure 81 mm[Hg] Mbanefo OJUKWU [facility] 01-22-2023 16:07-0400 Body temperature 97.52 [degF] Mbanefo OJUKWU [facility] 01-22-2023 04:50-0400 Heart rate 77 /min Mbanefo OJUKWU [facility] 01-21-2023 21:09-0400 Heart rate 85 /min Mbanefo OJUKWU [facility] 01-21-2023 15:11-0400 Heart rate 78 /min Mbanefo OJUKWU [facility] 12-20-2022 09:37-0400 Hourly Rounding Maycol CAGLE [facility] 12-20-2022 09:37-0400 Promise to Return Maycolyasmine GEELIN [facility] 12-20-2022 09:06-0400 Heart rate 65 /min Maycolyasmine ARRIOLASLIN [facility] 12-20-2022 09:06-0400 Respiratory rate 20 /min Maycol ARRIOLASLIN [facility] 12-20-2022 09:06-0400 SaO2% (BldA) [Mass fraction] 92 % Maycolyasmine ARRIOLASLIN [facility] 12-20-2022 08:56-0400 Heart rate 61 /min Maycol TSERING [facility] 12-20-2022 08:56-0400 Respiratory rate 20 /min Maycol TSERING [facility] 12-20-2022 08:56-0400 SaO2% (BldA) [Mass fraction] 92 % Maycol TSERING [facility] 12-20-2022 08:51-0400 Hourly Rounding Maycol TSERING [facility] 12-20-2022 08:51-0400 Promise to Return Maycol TSERING [facility] 12-20-2022 08:50-0400 Hourly Rounding Maycol TSERING [facility] 12-20-2022 08:31-0400 Promise to Return Maycol TSERING [facility] 12-20-2022 07:29-0400 Heart rate 60 /min Maycol TSERING [facility] 12-20-2022 07:29-0400 SaO2% (BldA) [Mass fraction] 93 % Maycol TSERING [facility] 12-20-2022 07:28-0400 Body temperature 98.06 [degF] Maycol TSERING [facility] 12-20-2022 07:28-0400 Diastolic blood pressure 69 mm[Hg] Maycol TSERING [facility] 12-20-2022 07:28-0400 Mean blood pressure 94 mm[Hg] Maycol TSERING [facility] 07-30-2023 07:28-0400 Systolic blood pressure 143 mm[Hg] Maycol TSERING [facility] 12-20-2022 03:25-0400 Respiratory rate 16 /min Maycol TSERING [facility] 12-20-2022 00:15-0400 Body temperature 97.7 [degF] Maycol TSERING [facility] 12-20-2022 00:15-0400 Diastolic blood pressure 56 mm[Hg] Maycol TSERING [facility] 12-20-2022 00:15-0400 Systolic blood pressure 135 mm[Hg] Maycol TSERING [facility] 12-19-2022 19:28-0400 Body temperature 98.42 [degF] Maycolyasmine ARRIOLASLIN [facility] 12-19-2022 19:27-0400 Diastolic blood pressure 69 mm[Hg] Maycol TSERING [facility] 12-19-2022 19:27-0400 Mean blood pressure 90 mm[Hg] Maycol TSERING [facility] 12-19-2022 19:27-0400 Systolic blood pressure 134 mm[Hg] Maycol TSERING [facility] 12-19-2022 16:26-0400 gluc 111 mg/dL Maycol TSERING [facility] 12-19-2022 16:06-0400 Mean blood pressure 95 mm[Hg] Maycol TSERING [facility] 12-19-2022 16:00-0400 Body temperature 98.06 [degF] Maycol TSERING [facility] 12-19-2022 11:58-0400 gluc 201 mg/dL Maycol TSERING [facility] 12-19-2022 08:18-0400 gluc 93 mg/dL Maycol TSERING [facility] 12-19-2022 08:00-0400 Body temperature 98.6 [degF] Maycol TSERING [facility] 12-18-2022 05:46-0400 Blood Pressure Location Maycol TSERING [facility] 12-18-2022 05:46-0400 Heart rate 67 /min Maycol TSERING [facility] 12-18-2022 05:00-0400 Body temperature 98.42 [degF] Maycol TSERING [facility] 12-18-2022 05:00-0400 Mean blood pressure 78 mm[Hg] Maycol TSERING [facility] 12-18-2022 05:00-0400 Respiratory rate 20 /min Maycol TSERING [facility] 12-18-2022 04:00-0400 Mean blood pressure 77 mm[Hg] Maycol TSERING [facility] 12-18-2022 04:00-0400 Respiratory rate 21 /min Maycol TSERING [facility] 12-18-2022 03:00-0400 Mean blood pressure 75 mm[Hg] Maycol TSERING [facility] 12-18-2022 03:00-0400 Respiratory rate 22 /min Maycol TSERING [facility] 12-18-2022 00:09-0400 Heart rate 85 /min Maycol TSERING [facility] 12-17-2022 23:54-0400 Heart rate 86 /min Maycol TSERING [facility] 12-02-2022 14:00-0400 SaO2% (BldA) [Mass fraction] 93 % Maycol TSERING [facility] 12-02-2022 13:00-0400 Hourly Rounding Maycol TSERING [facility] 12-02-2022 13:00-0400 Promise to Return Maycol TSERING [facility] 12-02-2022 12:58-0400 Heart rate 85 /min Maycol TSERING [facility] 12-02-2022 12:58-0400 SaO2% (BldA) [Mass fraction] 88 % Maycol TSERING [facility] 12-02-2022 12:58-0400 Body temperature 97.7 [degF] Maycol TSERING [facility] 12-02-2022 12:58-0400 Diastolic blood pressure 75 mm[Hg] Maycol TSERING [facility] 12-02-2022 12:58-0400 Mean blood pressure 102 mm[Hg] Maycol TSERING [facility] 12-02-2022 12:58-0400 Systolic blood pressure 157 mm[Hg] Maycol TSERING [facility] 12-02-2022 12:10-0400 Hourly Rounding Maycol TSERING [facility] 12-02-2022 12:10-0400 Promise to Return Maycol TSERING [facility] 12-02-2022 11:30-0400 Hourly Rounding Maycol TSERING [facility] 12-02-2022 11:30-0400 Promise to Return Maycol TSERING [facility] 12-02-2022 08:00-0400 Blood Pressure Location Maycol TSERING [facility] 12-02-2022 08:00-0400 Diastolic blood pressure 79 mm[Hg] Maycol TSERING [facility] 12-02-2022 08:00-0400 gluc 127 mg/dL Maycol TSERING [facility] 12-02-2022 08:00-0400 Heart rate 76 /min Maycol TSERING [facility] 12-02-2022 08:00-0400 Respiratory rate 20 /min Maycol TSERING [facility] 12-02-2022 08:00-0400 Systolic blood pressure 141 mm[Hg] Maycol TSERING [facility] 12-02-2022 07:46-0400 Heart rate 66 /min Maycol TSERING [facility] 12-02-2022 07:46-0400 Respiratory rate 18 /min Maycol TSERING [facility] 12-02-2022 07:40-0400 Respiratory rate 18 /min Maycol TSERING [facility] 12-01-2022 23:32-0400 Body temperature 97.16 [degF] Maycol TSERING [facility] 12-01-2022 23:32-0400 Diastolic blood pressure 77 mm[Hg] Maycol TSERING [facility] 12-01-2022 23:32-0400 Mean blood pressure 101 mm[Hg] Maycol TSERING [facility] 12-01-2022 23:32-0400 Systolic blood pressure 130 mm[Hg] Maycol TSERING [facility] 12-01-2022 20:01-0400 Body temperature 97.16 [degF] Maycol TSERING [facility] 12-01-2022 20:01-0400 Mean blood pressure 101 mm[Hg] Maycol TSERING [facility] 12-01-2022 12:07-0400 Body temperature 97.52 [degF] Maycol TSERING [facility] 12-01-2022 07:30-0400 Body temperature 96.98 [degF] Maycol TSERING [facility] 12-01-2022 06:00-0400 gluc 110 mg/dL Maycol TSERING [facility] 11-30-2022 23:32-0400 FIO2 30 % Maycol TSERING [facility] 11-30-2022 20:04-0400 Mean blood pressure 98 mm[Hg] Maycol TSERING [facility] 11-30-2022 04:38-0400 Mean blood pressure 91 mm[Hg] Maycol TSERING [facility] 11-29-2022 20:16-0400 FIO2 30 % Maycol TSERING [facility] 11-29-2022 19:00-0400 Blood Pressure Location Maycol TSERING [facility] 11-29-2022 08:10-0400 FIO2 30 % Maycol CAGLE [facility] 11-29-2022 04:08-0400 gluc 107 mg/dL Maycol CAGLE [facility] 11-29-2022 04:08-0400 Mean blood pressure 80 mm[Hg] Maycol CAGLE [facility] 11-29-2022 00:16-0400 Heart rate 48 /min Maycol CAGLE [facility] 11-28-2022 22:55-0400 Respiratory rate 19 /min Maycol CAGLE [facility] 11-28-2022 21:45-0400 Respiratory rate 18 /min Maycol CAGLE [facility] 11-28-2022 20:45-0400 Respiratory rate 22 /min Maycol CAGLE [facility] 11-28-2022 18:55-0400 SaO2% (BldA) [Mass fraction] 95.4 % Maycol CAGLE [facility] [place] Resp Auto SS 11-28-2022 17:13-0400 Heart rate 59 /min Maycol CAGLE [facility] 09-07-2022 01:10-0400 Diastolic blood pressure 53 mm[facility]Hg[facility] 01:10-0400 Heart rate 70 /min [facility] 09-07-2022 01:10-0400 SaO2% (BldA) [Mass fraction] 96 % [facility] 09-07-2022 01:10-0400 Systolic blood pressure 135 mm[Hg] [facility] En[facility]ters Encounter Date Encounter Type Care Provider Facility Start: 02-01-2023 ambulatory Robin Garcia acility:[facility] Start: 01-21-2023 End: 01-24-2023 Evaluation and management of inpatient [place] Facility:[facility] [place] Start: 01-21-2023 End: 01-24-2023 Evaluation and management of inpatient Steve MayesJUKWU [facility] Start: 01-15-2023 End: 01-16-2023 ambulatory Donta KOYUK Facility:CD:[id number] Start: 01-15-2023 End: 01-15-2023 Off-Site [facility] Start: 12-22-2022 End: 12-23-2022 ambulatory [facility] Facility:CD:[id number] Start: 12-22-2022 End: 12-22-2022 Off-Site [facility] Start: 12-18-2022 End: 12-20-2022 Evaluation and management of inpatient Maycol CAGLE Facility[place] [place] Start: 12-17-2022 End: 12-20-2022 Evaluation and management of inpatient Maycol CAGLE [facility] Start: 12-14-2022 End: 01-16-2023 ambulatory Donta KOYUK Facility:CD:[id number] Start: 12-14-2022 End: 01-16-2023 In-Between Visit [facility] Start: 12-11-2022 ambulatory [facility] Facilit y:LUISA Rodas Start: 12-03-2022 End: 12-03-2022 Off-Site [facility] Start: 12-03-2022 End: 12-04-2022 ambulatory [facility] Facility:CD:[id number] Start: 12-02-2022 End: 01-16-2023 ambulatory Donta NOONAN Facility:[facility] [place] Start: 11-30-2022 ambulatory Facility:[id number] Start: 11-30-2022 ambulatory Facility:[id number] Start: 11-29-2022 ambulatory Facility:[id number] Start: 11-29-2022 End: 12-02-2022 Evaluation and management of inpatient Maycol CAGLE Facility:[facility] [place] Start: 11-28-2022 End: 12-02-2022 Evaluation and management of inpatient Maycol CAGLE [facility] Start: 11-26-2022 End: 11-27-2022 ambulatory Bienvenido Barroso Facility:[facility] [place] Start: 11-26-2022 End: 11-26-2022 Patient encounter procedure Bienvenido Barroso [facility] Start: 09-26-2022 End: 09-28-2022 ambulatory UNKNOWN PROVIDER Facility:[facility] Start: 09-07-2022 End: 09-08-2022 ambulatory UNKNOWN PROVIDER Facility:[facility] Start: 2022 End: 2022 ambulatory [facility] Triage, Treat and Transport Start: 2022 End: 2022 Emergency department patient visit [facility] Emergency Triage, Treat and Transport Comment on [...] (2 - PPSV23 if available, else PCV20) [facility] Start: 1994 Shingles (RZV) Vacci ne (1 of 2) Shingles (RZV) Vaccine (1 of 2) [facility] Start: 1962 Hepatitis C screening Hepatitis C An tibody [facility] Start: 1962 Tetanus + diphtheria + acellular pertussis vaccine (product) Tdap Booster [facility] Immunizations Immunization Date Immunization Notes Care Provider Fa cility 03-12-2022 SARS-CoV-2 (COVID-19 ) mRNAMUL.ORD![id number] Donta SHAISTA [facility] 03-17-2021 Influenza, injectabl e, high-dose seasonal, quadrivalent, 0.7 mL, preservative free (WLC=423) [facility] 07-15-2020 Pfizer (12+ yrs) SARS-COV-2 (COVID-19) vaccine, mRNA, spike protein, LNP, pres. free, 30 mcg/0.3mL dose (KIG=953) [facility] 06-26-2020 Pfizer (12+ yrs) SARS-COV-2 (COVID-19) vaccine, mRNA, spike protein, LNP, pres. free, 30 mcg/0.3mL dose (NUE=060) [facility] 06-23-2019 influenza, high dose seasonal, preservative-free [facility] 05-14-2017 influenza, high dose seasonal, preservative-free [facility] 05-14-2017 pneumococcal conjuga te vaccine, 13 valent Et3 [facility] 04-04-2014 influenza, injectabl e, madin cee canine kidney, preservative free Et3 [facility] NEGATED: Highlighted row has not occurred!06-15-2014 pneumococcal polysaccharide vaccine, 23 valent Bienvenido Barroso [facility] Comment on above: Result Note: pt had vaccine last year per Payers Date Payer Category Payer Self-pay 2022 Unknown [id number] 2022 Medicare [facility] [id number] 2022-Present [address] [place] [address] Medicare [id number] 2022 Unknown [id number] 1945 Unknown [id number] 2.16.840.1.850156.3.579.2.732 1944 Unknown [id number] 2.16.840.1.829586.3.579.2.732 1944 Unknown [id number] 2.16.840.1.238201.3.579.2.356 1944 Unknown [id number] 2.16.840.1.130328.3.579.2.356 1944 Unknown [id number] 2.16.840.1.918476.3.579.2.356 1944 Unknown [id number] 2.16.840.1.736574.3.579.2.727 1944 Unknown [id number] 2.16.840.1.821776.3.579.2.727 1944 Unknown [id number] 2.16.840.1.502186.3.579.2.727 1944 Unknown [id number] 2.16.840.1.591678.3.579.2.72 1944 Unknown [id number] 2.16.840.1.528820.3.579.2.72 1944 Unknown [id number] 2.16.840.1.304089.3.579.2.72 1944 Unknown [id number] 2.16.840.1.823608.3.579.2.727 1944 Unknown [id number] 2.16.840.1.977490.3.579.2.727 1944 Unknown [id number] 2..840.1.112022.3.579.2.727 1944 Unknown [id number] 2.16.840.1.204087.3.579.2.727 1944 Unknown [id number] 2.840.1.721237.3.579.272 1944 Unknown [id number] 2.16.840.1.580090.3.579.2.727 Social History Date Type Detail Facility Tobacco smoking status VTIS Tobacco smoking consumption [facility] Start: 1945 Sex Assigned At Not on file [facility] Start: 04-24-2021 Tobacco smoking status Ex-smoker (finding) [facility] Sex Assigned At Male [facility] Functional Status Date Assessment Result Facility 01-21-2023 Functional Status No [facility] 01-21-2023 Functional Status [facility] 12-18-2022 Functional Status N/A [facility] 12-17-2022 Functional Status [facility] 11-29-2022 Functional Status N/A [facility] 11-28-2022 Functional Status [facility] Clinical Notes 09-07-2022 to 01-24-2023 Note Date & Type Note Facility 01-24-2023 Evaluation + Plan note Extrac gi from: Title:Discharge Note Author:New Johnson DO Date:01/24/23 Discharge To, Anticipated II - Long-Term Unit Discharged to - Home independently Transported [...] When Contact Information Dharmesh POTTS, Bienvenido Chavira, [facility] [place] [address]- Additional Instructions: Dementia, Vlqw-zf-Qhcm Extracted from: Title:APSO Note Author:New Johnson DO e:01/23/23 1. Generalized weakness (R53 .1: Weakness) IV fluids, trend BUN and creatinine PT/OT Currently awaiting pre-CERT for placement 2. Alzheimers disease (G30.9: Alzheimer's disease, unspecified) Continue Seroquel 3. 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 Alzheimers disease (G30.9: Alzheimer's disease, unspecified) Continue Seroquel 3. CAD in [place] artery (I25.10: Atherosclerotic heart disease of [place] coronary artery without angina pectoris) Continue aspirin [...] (G30.9: Alzheimer's disease, unspecified) 3. CAD in [place] artery (I25.10: Atherosclerotic heart disease of [place] coronary artery without angina pectoris) 4. COPD [...] Ordered: Initial Hospital Care/Day Moderate 55 Minutes 04510 2. Alzheimers disease (G30.9: Alzheimer's disease, unspecified) Continue Seroquel 3. CAD in [place] artery (I25.10: Atherosclerotic heart disease of [place] coronary artery without angina pectoris) Continue aspirin [...] improving gait and building on physical strength. [facility]09-03-2023 NoteBarney Children'S Medical CenterComment on above:Result Comment: Electronically Signed By: New Johnson DO.candice\Date and Time Signed: 01/24/23 09:57 [id number] Hospital Discharge instructions Patient Education 01/24/2023 09:54:03 Dementia, Qyyb-gm-Xwwy Dementia Dementia is a condition that affects [...] Follow these instructions at home: Medicines Take jzxh-tin-utdgoei and prescription medicines only as told by [...] find more information Alzheimer's Association: www.alz.org National [place] on Aging: www.susie.nih.gov/alzheimers World Health Organization: www.who.int [...] the National Suicide Prevention Lifeline at or 453 in the [place] This is open 24 hours a day. Text the Crisis Text Line at 895153. Summary Dementia often affects memory and thinking. [...] provider. Document Revised: 12/03/2021 Document Reviewed: 09/23/2020 [employer] Patient Education 2022 [employer]. Follow Up Care 01/21/2023 15:06:04 With:Dharmesh POTTS, SHEA Castillo Address: [address] [place] [address]- When: Unknown [facility]08-31-2023 NoteFishThomas B. Finan CenterComment on above:Result Comment: Electronically Signed By: New Johnson DO.br\Date and Time Signed: 01/21/23 17:53 [id number] Evaluation + Plan note Extracted from: Title:Discharge Note Author:MICHAEL POTTS, Jamir Gerry e:12/20/22 stable Discharge To, Anticipated II - Long-Term Unit Discharged to - custodial unit SNF Discharge Diet(s): Calorie Controlled- 1800 Calorie Diet (12/20/22 09:46:00) Prescriptions alprazolam 0.5 mg Tab, 0.5 mg= 1 tab(s), Oral, Daily, PRN aspirin 81 mg Oral EC Tab, 81 mg= 1 tab(s), Oral, Daily Augmentin 875 mg oral tablet, 1 tab(s), Oral, q12hr ergocalciferol 50,000 intl units Cap, 84773 International_Unit= 1 cap(s), Oral, q7day furosemide 40 [...] BID With When Contact Information Bienvenido Barroso [address] [place], [place] [address] Business (1) Additional Instructions: Call for followup [...] ultimately benefit being only slightly on the continuous conveyor screen 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 Coronary artery disease (I25.10: Atherosclerotic heart disease of [place] coronary artery without angina pectoris) Patient had [...] hypertension) Await reconciliation of meds from the [facility]. He did have 1 blood pressure of 106 systolically in the emergency department. With the fall and suspicion of intravascular depletion will transiently hold antihypertensives if it is identified he is actually on antihypertensives at the [facility]. On a prior hospitalization he had [...] recent hospitalization has been titrated at the [facility] facility. He was recently placed on Xanax, discontinue that at this time. Awaiting verification of meds from the [facility] 15. Encounter for deep [...] patient's RN it was advised that the assisted was planning on sending a copy of [...] Tests Pending * Legionella Antigen Urine 12/18/22 [facility]07-30-2023 NoteCRM entered the room to discuss dc planning. PCP, DME and insurance discussed. Patient is alert andinvolved in plan of care. Contact information given and whiteboard updated. Pt will [facility] room 17 today. CRM to follow.Ciro Brandenburg CenterComment on above:Result Comment: Electronically Signed By: Natalie Grant\.br\Date and Time Signed: 12/20/22 11:52 [id number] Carmenza Brandenburg CenterComment on above: Result Comment: Electronically Signed By: Jamir MCKINNEY MD\.br\Date and Time Signed: 12/20/22 10:[id number] Hospital Discharge instructions Patient Education 12/20/2022 09:48:09 [...] a long-term care facility, such as a assisted. Having your kidneys filtered through hemodialysis in [...] hard liquor (44 mL). General instructions Take fgbr-lhz-xepdcbs and prescription medicines as told by your [...] are not available, use an alcohol-based hand navy diver. ?Make sure your health care providers wash [...] and water or with alcohol- based hand navy diver before and after caring for sick people. [...] bacteria common in health care settings. Take zcud-arb-esbxgxc and prescription medicines as told by your [...] provider. Document Revised: 05/31/2022 Document Reviewed: 05/31/2022 [employer] Patient Education 2022 [facility] Follow Up Care 12/17/2022 23:50:19 With:Bienvenido Barroso Address: [address] [place] [address] [facility] (1) When: Unknown Comments:Call for followup appointment [facility]07-28-2023 [facility] HospitalComment on above:Result Comment: Electronically Signed By: Maycol CAGLE DO\.br\Date and Time Signed: 12/18/22 06:27 [id number] [facility] HospitalComment on above:Result Comment: Electronically Signed By: Lizeth Cedeno MD\.br\Date and Time Signed: 12/02/22 12:28 [id number] Evaluation + Plan noteExtracted from: Title:Discharge Note Author:Lizeth Cedeno MD ate:12/02/22 Stable Discharge To, Anticipated II - Long-Term Unit Discharged to - Home with family care Transported by, Anticipated - Family Discharge Diet(s): Other: Limit fluids to 1800 ml/day (12/02/22 12:23:00) Prescriptions aspirin 81 mg Oral EC Tab, 81 mg= 1 tab(s), Oral, Daily ergocalciferol 50,000 intl units Cap, 40387 International_Unit= 1 cap(s), Oral, q7day furosemide 40 [...] Bedtime With When Contact Information Joanie Jiménez [facility] [address] [place] [address]- Business (1) Additional Instructions: HFpEF Dave [place] [address] [place] [address]- Business (1) Additional Instructions: Cog impariment, Alzhiemer's Bienvenido Barroso In [address] [place] [address]- Business (1) Additional Instructions: Extracted from: Title:UPDATE Author:Jodei COLEMAN Date:12/01/22 Patient yelling out from mason [...] of CAD and previous coronary interventions in [place] with no indication of recurrent CAD, would [...] as able, pulm avery. -check echo Ordered: [facility] Hospital Care/Day High 50 Minutes 37577 2. Acute on chronic diastolic heart failure (I50.33: Acute on chronic diastolic (congestive) heart failure) c/w spironolactone and lasix IV 40mg qd -strict I/Os and daily weight - last echo was done 2014 with EF of 50%. will recheck this visit Ordered: [facility] Hospital Care/Day High 50 Minutes 45612 3. COPD without exacerbation (J44.9: Chronic obstructive pulmonary disease, unspecified) Ordered: [facility] Hospital Care/Day High 50 Minutes 76830 4. Weakness (R53.1: Weakness) -pt/ot Ordered: [facility] Hospital Care/Day High 50 Minutes 60011 5. Sinus bradycardia (R00.1: Bradycardia, unspecified) baseline. last EKG similar. -pt had decreased HR overnight so BB was held. -continue to monitor on tele Ordered: [facility] Hospital Care/Day High 50 Minutes 82113 6. Coronary artery disease (I25.10: Atherosclerotic heart disease of [place] coronary artery without angina pectoris) -c/w ASA Ordered: [facility] Hospital Care/Day High 50 Minutes 42206 7. Obstructive sleep apnea (G47.33: Obstructive sleep apnea (adult) (pediatric)) -CPAP qHS Ordered: [facility] Hospital Care/Day High 50 Minutes 91289 8. Pulmonary hypertension (I27.20: Pulmonary hypertension, unspecified) c/w spironolactone 50mg -lasix 40 mg iv qd -strict I/Os daily weights -check echo Ordered: [facility] Care/Day High 50 Minutes 35564 9. Abdominal pain (R10.9: Unspecified abdominal pain) resolved no complaints this morning Ordered: [facility] Hospital Care/Day High 50 Minutes 92642 10. Hypertension (I10: Essential (primary) hypertension) c/w spironolactone Ordered: [facility] Hospital Care/Day High 50 Minutes 19737 11. Diabetes (E11.9: Type 2 diabetes mellitus without complications) BGT qACHS -c/w glimepiride Ordered: [facility] Care/Day High 50 Minutes 12980 12. Hyperlipidemia (E78.5: Hyperlipidemia, unspecified) -hold statin due to elevated CK Ordered: [facility] Hospital Care/Day High 50 Minutes 94123 13. Chronic anemia (D64.9: Anemia, unspecified) monitor Ordered: [facility] Hospital Care/Day High 50 Minutes 88873 14. BPH (benign prostatic hyperplasia) (N40.0: Benign prostatic hyperplasia without lower urinary tract symptoms) c/w tamsulosin Ordered: [facility] Hospital Care/Day High 50 Minutes 31611 15. Dementia (F03.90: Unspecified dementia, unspecified severity, without behavioral disturbance, psychotic disturbance, mood disturbance, and anxiety) -c/w seroquel 25mg qHS Ordered: [facility] Hospital Care/Day High 50 Minutes 16091 16. Encounter for deep vein thrombosis (DVT) prophylaxis (Z29.9: Encounter for prophylactic measures, unspecified) Ordered: [facility] Hospital Care/Day High 50 Minutes 50829 17. Elevated CK (R74.8: Abnormal levels of other serum enzymes) -CK 1000 this morning. will monitor and hold statin - will not give fluids due to current diuresis Ordered: [facility] Hospital Care/Day High 50 Minutes 79192 COPD with acute exacerbation (J44.1: Chronic obstructive [...] artery disease (I25.10: Atherosclerotic heart disease of [place] coronary artery without angina pectoris) Continue aspirin, [...] Scheduled Provider:Donta NOONAN MD Location:Extended Care Appointment Type:[facility]07-10-2023 NoteOT [facility] six clicks score 15/24 = SNF. Patient requires assist w/ all transfers and self care at this time. Inpatient OT services to follow daily to progress w/ functional skills.[facility]07[facility] NotePT Evaluation completed with an [facility] score of 16/24. Pt requires Min A for bed mobility and min/Mod A to stand. Pt was able to take two sidesteps. Will follow daily, but SN[facility] HospitalComment on above:Result Comment: Electronically Signed By: Maycol CAGLE DO\.br\Date and Time Signed: 11/29/22 01:33 [id number] Hospital Discharge instructions Follow Up Care 11/28/2022 17:10:04 With:Joanie Jiménez Address: [facility] [address] [place] [address]- Business (1) When: Unknown Comments:HFpEF With:Dave Cruz Address: [address] [place] [address] Business (1) When: Unknown Comments:Cog impariment, Alzhiemer's With:Bienvenido Barroso Address: [address] [place] [phone] Business (1) When: Unknown [facility]05-20-2023 [facility] HospitalComment on above:Result Comment: Electronically Signed By: Adeline COLEMAN\.br\Date and Time Signed: 10/10/22 17:53 EDT\.br\Electronically Co- Signed By: Ganesh Minaya MD\.br\Date and Time Co-Signed: 10/10/22 18:51 EDT 09-27-2022 [facility] HospitalComment on above:Result Comment: Electronically Signed By: Adeline COLEMAN\.br\Date and Time Signed: 09/26/22 21:20 EDT\.br\Electronically Co-Signed By: Rei POTTS, Ganesh Pressley\.br\Date and Time Co-Signed: 09/27/22 08:00 [id number] History of Present illness Narrative* Marcelino Echavarria MD - 09/07/2022 1:12 AM EDT Images from the original note were not included. EMERGENCY TRIAGE, TREAT AND TRANSPORT (ET3) DOCUMENTATION OF TELEHEALTH VISIT Date / Time: 09/06/20222146 Name: Clyde Humphrey : 1945 SSN: [id number] EMS Agency: [facility] [x] Verbal consent obtained [] [...] note No data available for this section [facility], initial encounter- Primary [facility] encounter [facility] No data available for this section [facility] No data available for this section [facility] Summary Purpose Family History No Family History [...] section and content) DATE CREATED AUTHOR 06/26/2021 [facility] dical Specialist DATE CREATED AUTHOR AUTHOR'S ORGANIZ ATION 09/30/2022 [facility] DATE CREATED AUTHOR AUTHOR'S ORGANIZ ATION 12/05/2022 [facility] DATE CREATED AUTHOR AUTHOR'S ORGANIZ ATION 03/26/2023 [facility] DATE CREATED AUTHOR AUTHOR'S ORGANIZ ATION 05/04/2023 [facility] Reason for Visit (unrecogniz ed section and content) Reason Comments Fall Patient Care team informatio n (unrecognized section and content) Personnel Name: Dharmesh POTTS, Bienvenido Chavira Address: Address: [address] [place] [id number]- [place] Name: Andrew Rodriguez Personnel Name: Bienvenido Barroso MD Address: Address: [address] [place] [address] Name: Andrew Rodriguez Patti Personnel Name: Bienvenido Barroso MD Address: Address: [address] [place] [address] Name: Andrew Rodriguez Patti Personnel Name: Bienvenido Barroso MD Address: Address: [address] [place] [address] Name: Andrew Rodriguez Personnel Name: Bienvenido Barroso MD Address: Address: [address] [place] [address] Name: Andrew Rodriguez Personnel Name: Bienvenido Barroso MD Address: Address: [address] [place] [address] Name: Andrew Rodriguez Personnel Name: Bienvenido Barroso MD Address: Address: [address] [place] [address] Name: Andrew Rordiguez Personnel Name: Bienvenido Barroso MD Address: Address: [address] [place] [address] Name: Luis Gil LPN Name: Jackson Rodriguezan [...] BE BASED ON THE PRIMARY CLINICAL RECORDS. [employer] provides no warranty or guarantee of the accuracy or completeness of information in this document.
[2023-12-29 09:33] LABS: Bilirubin Urine NEGATIVE (NEGATIVE); Blood Urine NEGATIVE (NEGATIVE); Clarity Urine CLEAR (CLEAR); Color Urine LT. YELLOW (YELLOW); Glucose Urine UA NEGATIVE (NEGATIVE); Ketones Urine NEGATIVE (NEGATIVE); Leukocyte Esterase Urine NEGATIVE (NEGATIVE); Nitrite Urine NEGATIVE (NEGATIVE); Protein Urine NEGATIVE (NEG/TRACE); Urobilinogen Urine 0.2 EU/dL (0.2-1.0)
[2023-12-29 09:34] LABS: Urine Microscopic Indicated NO
== END 2023-12-28 20:01 | disposition home or self-care (01) ==
LOC: LAB 20:00
PROVIDERS: PCP Family Medicine; Visit Provider Family Medicine
DX: E11.49 Type 2 diabetes mellitus with other diabetic neurological complication (principal)
CPT/HCPCS: 81003

== ENCOUNTER 2024-01-03 05:58 | Outpatient (REF) | payer OTHER, SELFPAY ==
--- OUTSIDE RECORDS SUMMARY | 2024-01-03 06:04 | XMS_ITS | CCD ---
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 Name Role Phone Unavailable Primary Care Provider Unavailabl e PROVIDER, UNKNOWN Attending Unavailable PROVIDER, UNKNOWN Admitting Unavailable PROVIDER, UNKNOWN Attending Unavailable PROVIDER, UNKNOWN Admitting Unavailable Bienvenido Barroso Primary Care Physician [phone] Andrew Rodriguez Unavailable Unavailable Luis Gil Unavailable [...] Refills(s) 0 Start Date: 06/16/14 Status: Ordered [id number] 200 actuat albuterol 0.09 mg/actuat metered dose inhaler (4 sources) beta2-Adrenergic Agonist Start: 04-27-2021 take 2 puff(s) by inhalation four times daily for wheezing Pro-Air HFA CFC free 90 mcg/inh MDI 2 puff(s), Inhalation, QID for wheezing, 8.5 gram, Refill(s) 0, [facility], 167.6, cm, 04/24/21 18:14:00 EST, Height/Length [...] Daily, # 30 tab(s), Refills(s) 0, Pharmacy: [facility], 167, cm, 11/28/22 17:20:00 EDT, Height/Length [...] Daily, # 90 tab(s), Refills(s) 4, Pharmacy: [facility], 160, cm, 12/18/22 0:04:00 EDT, Height/Length [...] Daily, # 90 tab(s), Refills(s) 4, Pharmacy: [facility], 160, cm, 12/18/22 0:04:00 EDT, Height/Length [...] Daily, # 90 tab(s), Refills(s) 1, Pharmacy: [facility], 160, cm, 12/18/22 0:04:00 EDT, Height/Length Dosing, 94, kg, 12/18/22 0:04:00 EDT, Weight Dosing Start Date: 01/15/23 Status: Ordered Start: 12-02-2022 take 1 tablet by ruperto th once daily furosemide 40 mg Tab 40 mg = 1 tab(s), Oral, Daily, # 30 tab(s), Refills(s) 0, Pharmacy: [facility], 167, cm, 11/28/22 17:20:00 EDT, Height/Length [...] day, # 30 tab(s), Refills(s) 0, Pharmacy: [facility], 167, cm, 09/26/22 10:09:00 EDT, Height/Length [...] qHS, # 210 tab(s), Refills(s) 1, Pharmacy: [facility], 160, cm, 12/18/22 0:04:00 EDT, Height/Length [...] Bedtime, # 30 tab(s), Refills(s) 0, Pharmacy: [facility], 167, cm, 11/28/22 17:20:00 EDT, Height/Length [...] Daily, # 90 tab(s), Refills(s) 1, Pharmacy: [facility], 160, cm, 12/18/22 0:04:00 EDT, Height/Length [...] week(s), # 8 cap(s), Refills(s) 0, Pharmacy: [facility], 167, cm, 11/28/22 17:20:00 EDT, Height/Length [...] Completed Start: 06-16-2014 take 1 capsule by [facility] twice daily tamsulosin 0.4 mg [...] Coronary atherosclerosis; Translations: [Atherosclerotic heart disease of [place] coronary artery without angina pectoris] Onset: 11-29-2022 [...] Facility Insurance Correspondenceon 05-25-2022 Insurance Correspondence [id number]# 1.00TIFF [facility] Coding Queryon 02-17-2023 Coding Query [facility] Discharge Instructionson Discharge Instructions [id number]# 1.00CD:127 Normal [facility] Transfer Documentson 023 Transfer Documents [id number]# 1.00CD:127 Normal [facility] Discharge Note-Nursingon Discharge Note-Nursing Normal [facility] Interdisciplinary Note - Santosh e Manageron 01-23-2023 Interdisciplinary Note - Sports Writer Normal [facility] Comment on above: Result Comment: Elec tronically Signed By: Norma Garcia RN\.br\Date and Time Signed: 01/23/23 16:29 EDT Progress Note-Physicianon Progress Note-Physician Normal [facility] Comment on above: Result Comment: Elec tronically Signed By: New Johnson DO.br\Date and Time Signed: 01/23/23 09:50 EDT Auto Diffon 01-22-2023 Basophils/100 WBC (Bld) 0.7 % Normal 0.0-2.0 [facility] Comment on above: Order Comment: Order Added by Discern Expert. Performed By: #### 2 847502, 16126613, 2341002, 2168995 ####[address] [address] Basophils/Leukocytes Auto (Bld) [Pure # fraction] 0.1 E9/L Normal 0.0-0.2 [facility] Comment on above: Order Comment: Order Added by Discern Expert. Performed By: #### 2 601399, 86043502, 9770269, 8024939 ####[address] [address] Eosinophils/100 WBC (Bld) 9.3 % High 0.0-8.0 [facility] Comment on above: Order Comment: Order Added by Discern Expert. Performed By: #### 2 699720, 46213931, 9127605, 5513136 ####[address] [address] Eosinophils/Leukocytes Auto (Bld) [Pure # fraction] 0.8 E9/L High 0.0-0.5 [facility] Comment on above: Order Comment: Order Added by Discern Expert. Performed By: #### 2 036542, 48252292, 8019486, 3326120 ####[address] [address] Lymphocytes/100 WBC (Bld) 17.2 % Normal 14.0-50.0 [facility] Comment on above: Order Comment: Order Added by Discern Expert. Performed By: #### 2 929926, 86462642, 1690902, 2853612 ####[address] [address] Lymphocytes/Leukocytes Auto (Bld) [Pure # fraction] 1.4 E9/L Normal 1.0-4.0 [facility] Comment on above: Order Comment: Order Added by Discern Expert. Performed By: #### 2 818903, 88977830, 7796683, 0141454 ####[address] [address] Monocytes/100 WBC (Bld) 10.0 % Normal 4.0-14.0 [facility] Comment on above: Order Comment: Order Added by Discern Expert. Performed By: #### 2 776201, 90805701, 4687680, 7756748 ####[address] [address] Monocytes/Leukocytes Auto (Bld) [Pure # fraction] 0.8 E9/L Normal 0.2-1.0 [facility] Comment on above: Order Comment: Order Added by Discern Expert. Performed By: #### 2 419286, 04272180, 9816883, 7309006 ####[address] [address] Neutrophils/100 WBC (Bld) 62.8 % Normal 36.0-75.0 [facility] Comment on above: Order Comment: Order Added by Discern Expert. Performed By: #### 2 315912, 50589196, 7918703, 4737855 ####[address] [address] Neutrophils/Leukocytes Auto (Bld) [Pure # fraction] 5.2 E9/L Normal 2.0-7.5 [facility] Comment on above: Order Comment: Order Added by Discern Expert. Performed By: #### 2 500491, 35015779, 9946243, 9487157 ####[address] [address] CBC w/ Auto Diffon 3 Erythrocyte distribution width (RBC) [Ratio] 15.2 % High 10.9-14.2 [facility] Comment on above: Performed By: #### 2 840022, 07905762, 9925029, 4351567 ####[address] [address] Hematocrit (Bld) [Volume fraction] 43.1 % Normal 37.7-49.0 [facility] Comment on above: Performed By: #### 2 004383, 37039650, 0835963, 9177531 ####[address] [address] Hemoglobin (Bld) [Mass/Vol] 14.6 g/dL Normal 13.5-17.5 [facility] Comment on above: Performed By: #### 2 442375, 48867509, 5984402, 9914071 ####[facility] [address] [place] [address] MCH (RBC) [Entitic mass] 28.1 pg Normal 27.0-34.0 [facility] Comment on above: Performed By: #### 2 536236, 14049612, 2449754, 3065641 ####[address] [address] MCHC (RBC) [Mass/Vol] 33.8 g/dL Normal 31.4-36.0 [facility] Comment on above: Performed By: #### 2 184257, 35467299, 8242981, 1013443 ####[place] [address] MCV (RBC) [Entitic vol] 83.2 fL Normal 80.0-100.0 [facility] Comment on above: Performed By: #### 2 528092, 19557355, 1379011, 9081930 ####[address] [address] Platelet mean volume (Bld) [Entitic vol] 8.6 fL Normal 6.4-10.8 [facility] Comment on above: Performed By: #### 2 241125, 69931881, 0223465, 7313959 ####[facility] [address] [place] [address] Platelets (Bld) [#/Vol] 221.0 E9/L Normal 150.0-500.0 [facility] Comment on above: Performed By: #### 2 863273, 46754903, 5461717, 0886860 ####[facility] [address] [place] [address] RBC (Bld) [#/Vol] 5.2 E12/L Normal 4.3-5.9 [facility] Comment on above: Performed By: #### 2 807612, 16764442, 5681891, 6508555 ####[facility] [address] [place] [address] WBC corrected for nucl RBC Auto (Bld) [#/Vol] 8.3 E9/L Normal 4.0-11.[address] [facility] Comment on above: Performed By: #### 2 148233, 83434345, 6212080, 3248760 ####[facility] [address] [place] [address] CHEMISTRYOrdered By: Lab ROP User on 01-22-2023 Glucose [Mass/Vol] 121 mg/dL High 55 - 99 mg/dL [facility] P[facility] Subsection Comment on above: Result Comment: Gareth guerrero RN/ POC Device SN [id number] Invalid Interpretation Code [facility] P[facility] Subsection POC User ID [id number] Invalid Interpretation Code [facility] P[facility] Subsection POC Username LATONIA MALHOTRA Invalid Interpretation Code [facility] P[facility] Subsection CHEMISTRYOrdered By: SYSTEM SYSTEM on [...] 01-22-2023 Albumin [Mass/Vol] 3.7 g/dL Normal 3.3-5.0 [facility] Comment on above: Performed By: #### 2 591727, 98802843, 6162461, 0916928 ####[facility] [address] [place] [address] Albumin/Globulin (S) [Mass conc ratio] 1.0 Low 1.1-2.2 [facility] Comment on above: Performed By: #### 2 111206, 73920657, 6750886, 0228209 ####[facility] [address] [place] [address] ALP [Catalytic activity/Vol] 47 Int._Unit/L Normal 21-98 [facility] Comment on above: Performed By: #### 2 220758, 24184856, 5151798, 5325669 ####[facility] [address] [address] ALT No additional P-5'-P [Catalytic activity/Vol] 21 Int._Unit/L Normal 6-46 [facility] Comment on above: Performed By: #### 2 869767, 06509682, 8642038, 0976504 ####[facility] [address] [place] [address] Anion gap [Moles/Vol] 15 mmol/L Normal 6-16 [facility] Comment on above: Performed By: #### 2 309875, 27855478, 7083896, 6473849 ####[facility] [address] [place] [address] AST [Catalytic activity/Vol] 21 Int._Unit/L Normal 5-43 [facility] Comment on above: Performed By: #### 2 015502, 43950821, 0497805, 7206343 ####[facility] [address] [place] [address] Bilirubin [Mass/Vol] 0.8 mg/dL Normal 0.0-1.1 [facility] [place] [facility] Comment on above: Performed By: #### 2 450316, 32580383, 0793281, 4145211 ####[facility] [address] [place] [address] Calcium [Mass/Vol] 9.6 mg/dL Normal 8.9-11.1 [facility] Comment on above: Performed By: #### 2 646258, 60684510, 5866713, 4105665 ####[facility] [address] [place]N[address] [place] [address] Chloride [Moles/Vol] 97 mmol/L Low 101-111 [facility] [place] [facility] Comment on above: Performed By: #### 2 514371, 81811203, 6574845, 3764363 ####[facility] [address] [place] [address] CO2 [Moles/Vol] 30 mmol/L Normal 21-[address] [facility] Comment on above: Performed By: #### 2 677056, 41304294, 6077602, 1071025 ####[facility] [address] [place] [address] Creatinine [Mass/Vol] 1.3 mg/dL Normal 0.5-1.3 [facility] Comment on above: Performed By: #### 2 172668, 44565842, 9598637, 0361177 ####[facility] [address] [place] [address] Globulin (S) [Mass/Vol] 3.6 g/dL Normal 1.4-4.0 [facility] Comment on above: Performed By: #### 2 998993, 68104899, 8738026, 7687093 ####[facility] [address] [place] [address] Glucose [Mass/Vol] 124 mg/dL Normal 55-199 [facility] Comment on above: Result Comment: If t his glucose result represents a fasting glucose, interpretation should refer to the following reference range: 55-99 mg/dL Performed By: #### 2 660303, 84076889, 5246435, 2616205 ####[facility] [address] [place] [address] Potassium [Moles/Vol] 4.0 mmol/L Normal 3.5-5.3 [facility] Comment on above: Performed By: #### 2 409410, 39417125, 1168548, 3168464 ####[facility] [address] [place] [address] Protein [Mass/Vol] 7.3 g/dL Normal 6.0-7.8 [facility] Comment on above: Performed By: #### 2 100073, 63922806, 1958102, 3748505 ####[facility] [address] [place] [address] Sodium [Moles/Vol] 138 mmol/L Normal 135-145 [facility] Comment on above: Performed By: #### 2 538613, 52464005, 1043058, 6353899 ####[facility] [address] [place] [address] Urea nitrogen [Mass/Vol] 42 mg/dL High 5-21 [facility] Comment on above: Performed By: #### 2 462662, 44059556, 0978215, 5371477 ####[facility] [address] [place] [address] Urea nitrogen/Creatinine [Mass ratio] 32 No Units High 10-20 [facility] Comment on above: Performed By: #### 2 764417, 57285571, 7201312, 1811164 ####[facility] [address] [place] [address] Capillary Glucose POCon Glucose [Mass/Vol] 121 mg/dL High 55-99 [facility] Comment on above: Result Comment: Gareth guerrero RN/ Performed By: #### 2 01898290 ####[facility] [address] [place] [address] Coding Queryon 01-22-2023 Coding Query Normal [facility] HEMATOLOGYOrdered By: SYSTEM SYSTEM on [...] Correspondence Off iceon 01-22-2023 Insurance Correspondence Office [id number]#1 .00CD:127 Normal [facility] Interdisciplinary Note - Santosh e Manageron 01-22-2023 Interdisciplinary Note - Sports Writer Normal [facility] Comment on above: Result Comment: Elec tronically Signed By: Natalie Grant\.br\Date and Time Signed: 01/22/23 11:13 EDT Interdisciplinary Note - Murphy n 01-22-2023 Interdisciplinary Note - OT Normal [facility] Interdisciplinary Note - PTo n 01-22-2023 Interdisciplinary Note - PT Normal [facility] Message from Medicareon 090 Message from Medicare [id number]#1 .00CD:127 Normal [facility] Progress Note-Physicianon Progress Note-Physician Normal [facility] Comment on above: Result Comment: Elec tronically Signed By: New Johnson DO.br\Date and Time Signed: 01/22/23 14:15 EDT eGFRon 01-22-2023 GFR/1.73 sq M.predicted among non-blacks MDRD (S/P/Bld) [Vol rate/Area] 56 mL/min/1.73 m2 Low >=59 [facility] Comment on above: Order Comment: Order added by Discern Expert. Result Comment: Land Commissioner earnest kidney disease could be indicated at eGFR's of less than 60 mL/min/1.73m2. Kidney failure is indicated at less than 15 mL/min/1.73m2. Performed By: #### 2 740135, 83324270, 9736494, 4760863 ####[facility] [address] [place] [address] Auto Diffon 01-21-2023 Basophils/100 WBC (Bld) 0.9 % Normal 0.0-2.0 [facility] Comment on above: Order Comment: Order Added by Discern Expert. Performed By: #### 2 342229, 3576042, 27880939, 24638144, 5034854, 4993450 ####[facility] [address] [place] [address] Basophils/Leukocytes Auto (Bld) [Pure # fraction] 0.1 E9/L Normal 0.0-0.2 [facility] Comment on above: Order Comment: Order Added by Discern Expert. Performed By: #### 2 641744, 8916570, 50467521, 69517648, 6873399, 0998782 ####[facility] [address] [place] [address] Eosinophils/100 WBC (Bld) 3.3 % Normal 0.0-8.0 [facility] Comment on above: Order Comment: Order Added by Discern Expert. Performed By: #### 2 007720, 3744080, 31449702, 48222261, 3396887, 5119550 ####[facility] [address] [place] [address] Eosinophils/Leukocytes Auto (Bld) [Pure # fraction] 0.4 E9/L Normal 0.0-0.5 [facility] Comment on above: Order Comment: Order Added by Discern Expert. Performed By: #### 2 788267, 3772382, 24995153, 18320499, 7377929, 7755758 ####[address] [address] Lymphocytes/100 WBC (Bld) 10.4 % Low 14.0-50.0 [facility] Comment on above: Order Comment: Order Added by Discern Expert. Performed By: #### 2 222798, 4799537, 62996296, 84993778, 5035651, 0177739 ####[address] [address] Lymphocytes/Leukocytes Auto (Bld) [Pure # fraction] 1.2 E9/L Normal 1.0-4.0 [facility] Comment on above: Order Comment: Order Added by Discern Expert. Performed By: #### 2 069535, 2774193, 36138700, 99279175, 9310057, 5866291 ####[place] [address] [place] [address] Monocytes/100 WBC (Bld) 7.4 % Normal 4.0-14.0 [facility] Comment on above: Order Comment: Order Added by Discern Expert. Performed By: #### 2 313644, 8137216, 61286957, 00302256, 6970465, 3249065 ####[facility] [address] [place] [address] Monocytes/Leukocytes Auto (Bld) [Pure # fraction] 0.9 E9/L Normal 0.2-1.0 [facility] Comment on above: Order Comment: Order Added by Discern Expert. Performed By: #### 2 005872, 8538605, 70415868, 36891973, 6270128, 1314232 ####[place] [address] [place] [address] Neutrophils/100 WBC (Bld) 78.0 % High 36.0-75.0 [facility] Comment on above: Order Comment: Order Added by Discern Expert. Performed By: #### 2 079983, 8869449, 42705848, 90621031, 8942649, 8097877 ####[place] [address] [place] [address] Neutrophils/Leukocytes Auto (Bld) [Pure # fraction] 9.1 E9/L High 2.0-7.5 [facility] Comment on above: Order Comment: Order Added by Discern Expert. Performed By: #### 2 037182, 1694537, 33059079, 81395285, 7010180, 0811560 ####[facility] [address] [place] [address] BMPon 01-21-2023 Creatinine [Mass/Vol] 1.2 mg/dL Normal 0.5-1.3 [facility] Comment on above: Performed By: #### 2 718177, 1688747, 41310821, 58381796, 1796776, 1956172 ####[facility] [address] [place] [address] Urea nitrogen [Mass/Vol] 38 mg/dL High 5-21 [facility] Comment on above: Performed By: #### 2 633086, 0976555, 02778593, 77370917, 4227026, 2147075 ####[facility] [address] [place] [address] Urea nitrogen/Creatinine [Mass ratio] 32 No Units High 10-20 [facility] Comment on above: Performed By: #### 2 658769, 5498534, 14964920, 89531976, 1310029, 9508455 ####[facility] [address] [place] [address] Anion gap [Moles/Vol] 14 mmol/L Normal 6-16 [facility] Comment on above: Performed By: #### 2 134303, 5364958, 52225181, 87656930, 9636461, 1982483 ####[facility] [address] [place] [address] Calcium [Mass/Vol] 9.9 mg/dL Normal 8.9-11.1 [facility] Comment on above: Performed By: #### 2 854009, 5235287, 51228535, 01355195, 9466308, 5604886 ####[facility] [address] [place] [address] Chloride [Moles/Vol] 95 mmol/L Low 101-111 [facility] [place] [facility] Comment on above: Performed By: #### 2 694394, 3299200, 27825438, 78292425, 7497322, 7947215 ####[facility] [address] [place] [address] CO2 [Moles/Vol] 31 mmol/L Normal 21-[address] [facility] Comment on above: Performed By: #### 2 964138, 3876505, 86526648, 17559311, 9302575, 7153354 ####[facility] [address] [place] [address] Glucose [Mass/Vol] 124 mg/dL Normal 55-199 [facility] Comment on above: Result Comment: If t his glucose result represents a fasting glucose, interpretation should refer to the following reference range: 55-99 mg/dL Performed By: #### 2 939674, 9089725, 62747482, 63512443, 8876789, 2577010 ####[facility] [address] [place] [address] Potassium [Moles/Vol] 4.3 mmol/L Normal 3.5-5.3 [facility] Comment on above: Performed By: #### 2 250877, 6172748, 11582089, 49224724, 3311111, 1904250 ####[facility] [address] [place] [address] Sodium [Moles/Vol] 136 mmol/L Normal 135-145 [facility] Comment on above: Performed By: #### 2 118021, 7777393, 84883276, 58054299, 3795141, 0979954 ####[facility] [address] [place] [address] CBC w/ Auto Diffon Erythrocyte distribution width (RBC) [Ratio] 15.4 % High 10.9-14.2 [facility] Comment on above: Performed By: #### 2 603835, 7217880, 64490847, 70707487, 5337443, 7188541 ####[facility] [address] [place] [address] Hematocrit (Bld) [Volume fraction] 42.5 % Normal 37.7-49.0 [facility] Comment on above: Performed By: #### 2 749524, 8237138, 39947810, 33899732, 7225074, 5688705 ####[facility] [address] [place] [address] Hemoglobin (Bld) [Mass/Vol] 13.9 g/dL Normal 13.5-17.5 [facility] Comment on above: Performed By: #### 2 691857, 8978786, 55057182, 31130023, 7513903, 0850701 ####[facility] [address] [place] [address] MCH (RBC) [Entitic mass] 27.3 pg Normal 27.0-34.0 [facility] Comment on above: Performed By: #### 2 984907, 6308623, 60690618, 29399159, 8367017, 4516571 ####[facility] [address] [place] [address] MCHC (RBC) [Mass/Vol] 32.7 g/dL Normal 31.4-36.0 [facility] Comment on above: Performed By: #### 2 486698, 3334299, 37560857, 08690290, 2152645, 2902385 ####[place] [address] MCV (RBC) [Entitic vol] 83.4 fL Normal 80.0-100.0 [facility] Comment on above: Performed By: #### 2 598378, 7173084, 46451500, 46888545, 8408213, 3050566 ####[address] [address] Platelet mean volume (Bld) [Entitic vol] 8.6 fL Normal 6.4-10.8 [facility] Comment on above: Performed By: #### 2 086102, 5363984, 51868682, 88653796, 4515969, 3236925 ####[address] [address] Platelets (Bld) [#/Vol] 252.0 E9/L Normal 150.0-500.0 [facility] Comment on above: Performed By: #### 2 854831, 1694856, 72201866, 51014194, 3306138, 6952557 ####[address] [address] RBC (Bld) [#/Vol] 5.1 E12/L Normal 4.3-5.9 [facility] Comment on above: Performed By: #### 2 727058, 3172393, 16690482, 41174090, 3608833, 0096070 ####[facility] [address] [place] [address] WBC corrected for nucl RBC Auto (Bld) [#/Vol] 11.6 E9/L High 4.0-11.[address] [facility] Comment on above: Performed By: #### 2 233284, 0682773, 80155930, 97118280, 5675833, 4069067 ####[facility] [address] [place] [address] CHEMISTRYOrdered By: SYSTEM SYSTEM on 01-21-2023 Troponin [...] Treatmenton 12-24 Consent for Treatment [id number] .00CD:127 Normal [facility] ED Clinical Summaryon 2022 ED Clinical Summary Normal [facility] ED Note-Physicianon 01-22-20 ED Note-Physician Normal [facility] Comment on above: Result Comment: Elec tronically Signed By: Gustavo Yusuf DO.br\Date and Time Signed: 01/21/23 19:26 EDT ED Patient Education Noteon 01-21-2023 ED Patient Education Note Normal [facility] ED Patient Summaryon 023 ED Patient Summary [facility] [facility] HEMATOLOGYOrdered By: SYSTEM SYSTEM on [...] 5.1 E12/L Normal 4.3 - 5.9 E12/L [facility] HemeAutoSS WBC corrected for nucl RBC Auto (Bld) [#/Vol] 11.6 E9/L High 4.0 - 11.0 E9/L [facility] HemeAutoSS Hep Func Panelon 01-21-2023 Bilirubin.direct [Mass/Vol] 0.1 mg/dL Normal 0.1-0.4 [facility] Comment on above: Performed By: #### 2 665445, 7938122, 39632629, 28221076, 1321039, 4743206 ####[facility] [address] [place] [address] Bilirubin.indirect [Mass or moles/Vol] 0.8 mg/dL Normal 0.1-0.9 [facility] Comment on above: Performed By: #### 2 233968, 8477124, 59793387, 49520776, 0603492, 8365340 ####[facility] [address] [place] [address] Albumin [Mass/Vol] 3.9 g/dL Normal 3.3-5.0 [facility] Comment on above: Performed By: #### 2 171724, 0672464, 22569199, 44175719, 0165486, 3697261 ####[facility] [address] [place] [address] Albumin/Globulin (S) [Mass conc ratio] 1.0 Low 1.1-2.2 [facility] Comment on above: Performed By: #### 2 962325, 1905357, 30929448, 56707052, 2415315, 9573490 ####[place] [place] [place] [address] ALP [Catalytic activity/Vol] 50 Int._Unit/L Normal 21-98 [facility] Comment on above: Performed By: #### 2 340534, 3583131, 88426723, 67052901, 1153354, 0335783 ####[facility] [address] [place] [address] ALT No additional P-5'-P [Catalytic activity/Vol] 23 Int._Unit/L Normal 6-46 [facility] Comment on above: Performed By: #### 2 293431, 3809105, 18666889, 50133747, 7054079, 1460719 ####[facility] [address] [place] [address] AST [Catalytic activity/Vol] 22 Int._Unit/L Normal 5-43 [facility] Comment on above: Performed By: #### 2 115355, 4351623, 02569420, 06139798, 3363667, 0979395 ####[facility] [address] [place] [address] Bilirubin [Mass/Vol] 0.9 mg/dL Normal 0.0-1.1 [facility] [place] [facility] Comment on above: Performed By: #### 2 479567, 9859728, 56174717, 04784135, 7265782, 9138755 ####[facility] [address] [place] [address] Globulin (S) [Mass/Vol] 3.8 g/dL Normal 1.4-4.0 F [facility] Comment on above: Performed By: #### 2 063388, 8521318, 57812805, 51167973, 3889615, 1715713 ####[facility] [address] [place] [address] Protein [Mass/Vol] 7.7 g/dL Normal 6.0-7.8 [facility] Comment on above: Performed By: #### 2 864200, 2967872, 73235186, 06719158, 5512090, 2852598 ####[facility] [address] [place] [address] Usp Recordson 01-21 Usp Records [id number]# 1.00CD:127 Normal [facility] Troponin 0 Hr.on 01-21-2023 Troponin I.cardiac [Mass/Vol] 25.50 pg/mL Normal 15.90-38.40 [facility] Comment on above: Result Comment: The 95% CI (Confidence Interval) PPV (Positive Predictive Value) for myocardial infarction in females is 38 pg/mL, in males 51 pg/mL. The results should be used in conjunction with clinical conditions of myocardial infarction.(Access High Sensitivity Troponin I Instructions For Use, [place], December 2017) Performed By: #### 2 252966, 6387406, 05687426, 05831128, 6041362, 5189298 ####[address] [address] Troponin 3 Hr.on 01-21-2023 Troponin I.cardiac [Mass/Vol] 23.90 pg/mL Normal 15.90-38.40 [facility] Comment on above: Result Comment: The 95% CI (Confidence Interval) PPV (Positive Predictive Value) for myocardial infarction in females is 38 pg/mL, in males 51 pg/mL. The results should be used in conjunction with clinical conditions of myocardial infarction.(ImageBrief High Sensitivity Troponin I Instructions For Use, [place], December 2017) Performed By: #### 1 6022645 ####[address] [address] UA With Cult Reflexon 2022 Bilirubin Ql (U) Negative Normal Negative [facility] Comment on above: Performed By: #### 1 7420383 ####[address] [address] Clarity (U) CLEAR Normal Clear [facility] Comment on above: Performed By: #### 1 2557898 ####[address] [address] Color (U) STRAW Abnormal Yellow [facility] Comment on above: Performed By: #### 1 6671096 ####[address] [address] Epithelial cells.squamous LM.HPF (Urine sed) [#/Area] 0-2 Normal 0-2 [facility] Comment on above: Performed By: #### 1 6805948 ####[address] [address] Glucose Test strip (U) [Mass/Vol] Negative Normal Negative [facility] Comment on above: Performed By: #### 1 2280538 ####[address] [address] Hemoglobin Ql (U) Negative Normal Negative [facility] Comment on above: Performed By: #### 1 8791621 ####[address] [address] Ketones (U) [Mass/Vol] Negative Normal Negative [facility] Comment on above: Performed By: #### 1 2970063 ####[address] [address] [place].plasma/[place].R BC (Bld) [Mass ratio] 0-3 Normal 0-3 [facility] Comment on above: Performed By: #### 1 0723042 ####[address] [address] Nitrite Ql (U) Negative Normal Negative [facility] Comment on above: Performed By: #### 1 7785723 ####[address] [address] pH (U) 6.0 [pH] Invalid Interpretation Code 5.0-9.0 [facility] Comment on above: Performed By: #### 1 3422501 ####[address] [address] Protein (U) [Mass/Vol] Negative Normal Negative [facility] Comment on above: Performed By: #### 1 5722184 ####[address] [address] Specific gravity (U) [Rel density] 1.010 Invalid Interpretation Code 1.005-1.030 [facility] Comment on above: Performed By: #### 1 0070161 ####[address] [address] Type of Urine collection method Clean Catch Normal [facility] Comment on above: Performed By: #### 1 9803962 ####[facility] [address] [place] [address] Urobilinogen Qn (U) 0.2 {Lei'U}/dL Normal 0.0-1.0 [facility] Comment on above: Performed By: #### 1 2415514 ####[facility] [address] [place] [address] WBC Auto Ql (U) Negative Normal Negative [facility] Comment on above: Performed By: #### 1 1945306 ####[facility] [address] [place] [address] WBC LM.HPF (Urine sed) [#/Area] 0-5 Normal 0-5 [facility] Comment on above: Performed By: #### 1 9759165 ####[facility] [address] [place] [address] URINALYSISOrdered By: Karen Vergara on 01-21-2023 Bilirubin [...] PM) Normal Negative [facility] UA Auto SS [place].plasma/[place].R BC (Bld) [Mass ratio] 0-3 /HPF Normal 0-3/HPF [facility] UA Au to SS Nitrite Ql (U) Negative (01/21/23 4:41 PM) Normal Negative [facility] UA Auto SS pH (U) 6.0 *NA* (01/21/23 4:41 PM) Invalid Interpretation Code 5.0 - 9.0 [facility] UA Auto SS Protein (U) [Mass/Vol] Negative (01/21/23 4:41 PM) Normal Negative [facility] UA Auto SS Specific gravity (U) [Rel density] 1.010 *NA* (01/21/23 4:41 PM) Invalid Interpretation Code 1.005 - 1.030 [facility] UA Auto SS UA Spec Desc Clean Catch (01/21/23 4:41 PM) Normal [facility] UA Auto SS Urobilinogen Qn (U) 0.2659048 {Lei'U}/dL Normal 0.0 - 1.0 EU/dL [facility] UA Auto SS WBC Auto Ql (U) Negative (01/21/23 4:41 PM) Normal Negative [facility] UA Auto SS WBC LM.HPF (Urine sed) [#/Area] 0-5 /HPF Normal 0-5/HPF [facility] UA Auto SS XR Chest Single Viewon 01-21 XR Chest Single View Normal [facility] eGFRon 01-21-2023 GFR/1.73 sq M.predicted among non-blacks MDRD (S/P/Bld) [Vol rate/Area] 62 mL/min/1.73 m2 Normal >=59 [facility] Comment on above: Order Comment: Order added by Discern Expert. Result Comment: Land Commissioner earnest kidney disease could be indicated at eGFR's of less than 60 mL/min/1.73m2. Kidney failure is indicated at less than 15 mL/min/1.73m2. Performed By: #### 2 572294, 6791107, 53744123, 15127734, 6510209, 5710724 ####[facility] [address] [place] [address] Discharge Instructionson Discharge Instructions [id number] .[id number]:127 Normal [facility] Capillary Glucose POCon 12-23 Glucose [Mass/Vol] 117 mg/dL High 55-99 [facility] Comment on above: Result Comment: Yazmin bri Meter Performed By: #### 2 26882921 ####[facility] [address] [place] [address] Family Medicine Office/Clini c Noteon 01-15-2023 Family Medicine Office/Clinic Note Normal [facility] Comment on above: Result Comment: Elec tronically Signed By: SHAISTA POTTS, Dennise.br\Date and Time Signed: 01/15/23 16:46 EDT Capillary Glucose POCon 12-23 Glucose [Mass/Vol] 121 mg/dL High [address] [place] [address] Comment on above: Result Comment: Yazmin bri Meter Performed By: #### 2 29008066 ####[facility] [address] [place] [address] Capillary Glucose POCon 12-23 Glucose [Mass/Vol] 127 mg/dL [address] Comment on above: Result Comment: Yazmin bri Meter Performed By: #### 2 62977221 ####[facility] [address] [place] [address] Capillary Glucose POCon 12-22 Glucose [Mass/Vol] 104 mg/dL [address] Comment on above: Result Comment: Yazmin bri Meter Performed By: #### 2 72816186 ####[facility] [address] [place] [address] Capillary Glucose POCon 12-22 Glucose [Mass/Vol] 121 mg/dL [address] Comment on above: Result Comment: Yazmni bri Meter Performed By: #### 2 32562478 ####[facility] [address] [place] [address] Capillary Glucose POCon 12-22 Glucose [Mass/Vol] 110 mg/dL [address] Comment on above: Result Comment: Yazmin bri Meter Performed By: #### 2 26299969 ####[facility] [address] [place] [address] Capillary Glucose POCon 12-22 Glucose [Mass/Vol] 119 mg/dL [address] Comment on above: Result Comment: Yazmin bri Meter Performed By: #### 2 82412958 ####[facility] [address] [place] [address] Capillary Glucose POCon 12-22 Glucose [Mass/Vol] 141 mg/dL High 55-99 [facility] Comment on above: Result Comment: Yazmin bri Meter Performed By: #### 2 74494253 ####[facility] [address] [place] [address] Capillary Glucose POCon 12-22 Glucose [Mass/Vol] 104 mg/dL High 55-99 [facility] Comment on above: Result Comment: Yazmin bri Meter Performed By: #### 2 25153297 ####[facility] [address] [place] [address] BMPon 12-30-2022 Calcium [Mass/Vol] 9.1 mg/dL Normal 8.9-11.1 [facility] Comment on above: Performed By: #### 7 63416738, 2477594, 59067665 ####[facility] [address] [place] [address] Anion gap [Moles/Vol] 18 mmol/L High 6-16 [facility] Comment on above: Performed By: #### 7 76141693, 0207093, 17747829 ####[facility] [address] [place] [address] Chloride [Moles/Vol] 91 mmol/L Low 101-111 [facility] [place] [facility] Comment on above: Performed By: #### 7 53121372, 2856076, 88286280 ####[facility] [address] [place] [address] CO2 [Moles/Vol] 30 mmol/L Normal 21-[address] [facility] Comment on above: Performed By: #### 7 47545392, 8560374, 69117430 ####[facility] [address] [place] [address] Creatinine [Mass/Vol] 1.3 mg/dL Normal 0.5-1.3 [facility] Comment on above: Performed By: #### 7 44112615, 5114232, 87071725 ####[facility] [address] [place] [address] Glucose [Mass/Vol] 171 mg/dL Normal 55-199 [facility] Comment on above: Result Comment: If t his glucose result represents a fasting glucose, interpretation should refer to the following reference range: 55-99 mg/dL Performed By: #### 7 27984141, 1233254, 50731985 ####[facility] [address] [place] [address] Potassium [Moles/Vol] 4.2 mmol/L Normal 3.5-5.3 [facility] Comment on above: Performed By: #### 7 22731760, 4249918, 08382198 ####[facility] [address] [place] [address] Sodium [Moles/Vol] 135 mmol/L Normal 135-145 [facility] Comment on above: Performed By: #### 7 44060594, 3045525, 60008244 ####[facility] [address] [place] [address] Urea nitrogen [Mass/Vol] 36 mg/dL High 5-21 [facility] Comment on above: Performed By: #### 7 58937029, 0002517, 74072867 ####[facility] [address] [place] [address] Urea nitrogen/Creatinine [Mass ratio] 28 No Units High 10-20 [facility] Comment on above: Performed By: #### 7 60103017, 4881453, 54770751 ####[facility] [address] [place] [address] UuhF0cih 12-30-2022 HbA1c (Bld) [Mass fraction] 6.9 % High <=5.9 [facility] Comment on above: Performed By: #### 7 98012583, 7591387, 65201684 ####[facility] [address] [place] [address] eGFRon 12-30-2022 GFR/1.73 sq M.predicted among non-blacks MDRD (S/P/Bld) [Vol rate/Area] 56 mL/min/1.73 m2 Low >=59 [facility] Comment on above: Order Comment: Order added by Discern Expert. Result Comment: Land Commissioner earnest kidney disease could be indicated at eGFR's of less than 60 mL/min/1.73m2. Kidney failure is indicated at less than 15 mL/min/1.73m2. Performed By: #### 7 [id number], 7792748, 94756102 ####[facility] [address] [place] [address] Capillary Glucose POCon 08-0 Glucose [Mass/Vol] 141 mg/dL [facility] 55-99 [facility] Comment on above: Result Comment: Yazmin bri Meter Performed By: #### 2 06196408 ####[facility] [address] [place] [address] Capillary Glucose POCon 08-0 Glucose [Mass/Vol] 101 mg/dL [address] Comment on above: Result Comment: Yazmin bri Meter Performed By: #### 2 21747013 ####[facility] [address] [place] [address] C Blood Charcoalon 3 Blood Culture Charcoal Normal [facility] Comment on above: Performed By: #### 1 5521540 ####[facility] [address] [place] [address] Capillary Glucose POCon 08-0 Glucose [Mass/Vol] 135 mg/dL [facility] [address] [place] [address] Comment on above: Result Comment: Yazmin bri Meter Performed By: #### 2 43787099 ####[facility] [address] [place] [address] Capillary Glucose POCon 08-0 Glucose [Mass/Vol] 110 mg/dL [facility] 55-99 [facility] Comment on above: Result Comment: Yazmin bri Meter Performed By: #### 2 35042403 ####[facility] [address] [place] [address] Consultation Noteon 12-24-19 Consultation Note Normal [facility] Comment on above: Result Comment: Elec tronically Signed By: Marcus POTTS, [place]\.br\Date and Time Signed: 12/23/22 07:33 EDT Family Medicine Office/Clini c Noteon 12-23-2022 Family Medicine Office/Clinic Note Normal [facility] Comment on above: Result Comment: Elec tronically Signed By: SHAISTA POTTS, Donta\.br\Date and Time Signed: 12/22/22 22:31 EDT C Blood Charcoalon Blood Culture Charcoal Normal [facility] Comment on above: Performed By: #### 1 1186437 ####[facility] [address] [place] [address] U Legi Agon 12-22-2022 L. pneumophila 1 Ag IA Ql (U) Negative Invalid Interpretation Code Negative [facility] Comment on above: Result Comment: Pres umptive negative for L. pneumophila serogroup 1 antigen in urine,suggesting no recent or current infection. Legionnaires' diseasecannot be ruled out since other serogroups and species may also causedisease.Performed at: Lab[address] [id number] MD Tyler Gurrola Performed By: #### 2 946435 ####[facility] [address] [place] [address] C Urineon 12-21-2022 Bacteria identified Cx Nom (U) Normal [facility] Comment on above: Performed By: #### 1 8681228, 1524759 ####[facility] [address] [place] [address] Capillary Glucose POCon 11-23 Glucose [Mass/Vol] 134 mg/dL High 55-99 [facility] Comment on above: Result Comment: Yazmin bri Meter Performed By: #### 2 99164137 ####Tanner Wojciech [address] [address] Auto DiffOrdered By: SYSTEM SYSTEM on 12-20-2022 Basophils/100 WBC (Bld) 0.5 % Normal 0.0-2.0 F C HemeAutoSS Comment on above: Order Comment: Order Added by Discern Expert. Performed By: #### 2 359398, 2234663, 04093173, 0326931 ####[address] [address] Basophils/Leukocytes Auto (Bld) [Pure # fraction] 0.0 E9/L Normal 0.0-0.2 [facility] HemeAutoSS Comment on above: Order Comment: Order Added by Bethany Expert. Performed By: #### 2 284982, 3910632, 44457285, 4705555 ####[address] [address] Eosinophils/100 WBC (Bld) 7.9 % Normal 0.0-8.0 FT HemeAutoSS Comment on above: Order Comment: Order Added by Bethany Expert. Performed By: #### 2 594446, 1006978, 19121448, 3023896 ####[address] [address] Eosinophils/Leukocytes Auto (Bld) [Pure # fraction] 0.8 E9/L High 0.0-0.5 [facility] HemeAutoSS Comment on above: Order Comment: Order Added by Bethany Expert. Performed By: #### 2 122439, 3023226, 77586859, 3426315 ####[address] [address] Lymphocytes/100 WBC (Bld) 9.5 % Low 14.0-50.0 [facility] HemeAutoSS Comment on above: Order Comment: Order Added by Bethany Expert. Performed By: #### 2 729161, 3429409, 99144674, 5889487 ####[address] [address] Lymphocytes/Leukocytes Auto (Bld) [Pure # fraction] 1.0 E9/L Normal 1.0-4.0 [facility] HemeAutoSS Comment on above: Order Comment: Order Added by Discern Expert. Performed By: #### 2 225620, 3591102, 86919057, 0783637 ####[address] [place] [address] Monocytes/100 WBC (Bld) 7.6 % Normal 4.0-14.0 [facility] HemeAutoSS Comment on above: Order Comment: Order Added by Discern Expert. Performed By: #### 2 422563, 5491160, 99386823, 8355891 ####[address] [address] Monocytes/Leukocytes Auto (Bld) [Pure # fraction] 0.8 E9/L Normal 0.2-1.0 FT HemeAutoSS Comment on above: Order Comment: Order Added by Discern Expert. Performed By: #### 2 054084, 2757043, 51257197, 4474222 ####[address] [address] Neutrophils/100 WBC (Bld) 74.5 % Normal 36.0-75.0 FT HemeAutoSS Comment on above: Order Comment: Order Added by Discern Expert. Performed By: #### 2 850982, 3944307, 21354068, 4728357 ####[address] [address] Neutrophils/Leukocytes Auto (Bld) [Pure # fraction] 7.7 E9/L High 2.0-7.5 [facility] HemeAutoSS Comment on above: Order Comment: Order Added by Discern Expert. Performed By: #### 2 339763, 0103530, 04149537, 4774190 ####[address] [address] BMPOrdered By: SYSTEM SYSTEM on 12-20-2022 Anion gap [Moles/Vol] 8 mmol/L Normal 6-16 [facility] C Remisol Comment on above: Performed By: #### 2 740356, 7212692, 90987843, 8959055 ####[address] [address] Calcium [Mass/Vol] 7.9 mg/dL Low 8.9-11.1 FT R emisol Comment on above: Performed By: #### 2 918122, 2737200, 57371024, 3959609 ####[facility] [address] [place] [address] Chloride [Moles/Vol] 105 mmol/L Normal 101-111 [facility] Remisol Comment on above: Performed By: #### 2 501947, 5606200, 34493898, 6160188 ####[facility] [address] [place] [address] CO2 [Moles/Vol] 25 mmol/L Normal 21-31 [facility] Ashwin luanne Comment on above: Performed By: #### 2 611273, 3988304, 11084897, 4244890 ####[facility] [address] [place] [address] Creatinine [Mass/Vol] 1.0 mg/dL Normal 0.5-1.3 [facility] C Remisol Comment on above: Performed By: #### 2 876404, 5900000, 87480464, 6972844 ####[facility] [address] [place] [address] Glucose [Mass/Vol] 106 mg/dL Normal 55-199 FT [facility] emisol Comment on above: Result Comment: If t his glucose result represents a fasting glucose, interpretation should refer to the following reference range: 55-99 mg/dL Performed By: #### 2 230346, 5246463, 57287446, 8171928 ####[facility] [address] [place] [address] Potassium [Moles/Vol] 4.4 mmol/L Normal 3.5-5.3 [facility] C Remisol Comment on above: Performed By: #### 2 326033, 6636861, 67230669, 7112852 ####[facility] [address] [place] [address] Sodium [Moles/Vol] 134 mmol/L Low 135-145 [facility] R emisol Comment on above: Performed By: #### 2 992288, 6764797, 89034021, 6861763 ####[facility] [address] [place] [address] Urea nitrogen [Mass/Vol] 22 mg/dL High 5-21 [facility] Remisol Comment on above: Performed By: #### 2 208771, 1329145, 51160903, 6513614 ####[facility] [address] [place] [address] BMPon 12-20-2022 Urea nitrogen/Creatinine [Mass ratio] 22 No Units High 10-20 [facility] Comment on above: Performed By: #### 2 710339, 7582977, 33160293, 0218871 ####[address] [address] CBC w/ Auto DiffOrdered By: Bony Hdez on 12-20-2022 Erythrocyte distribution width (RBC) [Ratio] 14.7 % High 10.9-14.2 [facility] HemeAutoSS Comment on above: Performed By: #### 2 990524, 0590642, 44352944, 3752799 ####[address] [address] Hematocrit (Bld) [Volume fraction] 34.6 % Low 37.7-49.0 [facility] HemeAutoSS Comment on above: Performed By: #### 2 181063, 9936562, 96870371, 7286457 ####[address] [address] Hemoglobin (Bld) [Mass/Vol] 11.7 g/dL Low 13.5-17.5 [facility] HemeAutoSS Comment on above: Performed By: #### 2 761610, 7048650, 52075074, 9997949 ####[address] [address] MCH (RBC) [Entitic mass] 28.6 pg Normal 27.0-34.0 [facility] HemeAutoSS Comment on above: Performed By: #### 2 455038, 7979616, 12292676, 8040233 ####Tanner [address] [address] MCHC (RBC) [Mass/Vol] 33.7 g/dL Normal 31.4-36.0 [facility] C HemeAutoSS Comment on above: Performed By: #### 2 491499, 3221303, 71726946, 0867624 ####[place] [address] MCV (RBC) [Entitic vol] 84.7 fL Normal 80.0-100.0 F [facility] HemeAutoSS Comment on above: Performed By: #### 2 115483, 7636783, 00831107, 7061181 ####[place] [address] Platelet mean volume (Bld) [Entitic vol] 9.5 fL Normal 6.4-10.8 [facility] HemeAutoSS Comment on above: Performed By: #### 2 963700, 8713600, 76305811, 1303843 ####[place] [address] Platelets (Bld) [#/Vol] 216.0 E9/L Normal 150.0-500.0 [facility] HemeAutoSS Comment on above: Performed By: #### 2 449787, 6575175, 12744518, 8843763 ####[place] [address] RBC (Bld) [#/Vol] 4.1 E12/L Low 4.3-5.9 [facility] HemeAutoSS Comment on above: Performed By: #### 2 700511, 3999076, 78737473, 3628862 ####[address] [address] WBC corrected for nucl RBC Auto (Bld) [#/Vol] 10.3 E9/L Normal 4.0-11.0 FT HemeAutoSS Comment on above: Performed By: #### 2 218824, 7965274, 26756600, 0711348 ####[address] [place] [address] CHEMISTRYOrdered By: Lab ROP User on 12-20-2022 Glucose [Mass/Vol] 109 mg/dL High 55 - 99 mg/dL [facility] POC Subsection Comment on above: Result Comment: Gareth GARDINER POC Device SN [id number] Invalid Interpretation Code [facility] POC Subsection POC User ID [id number] Invalid Interpretation Code [facility] [facility] Subsection POC Username SAMANTHA LAMBERT Invalid Interpretation Code [facility] Subsection CHEMISTRYOrdered By: SYSTEM SYSTEM on 12-20-2022 Urea nitrogen/Creatinine [Mass ratio] 22 mg/mg High 10 - 20 [facility] Remisol Capillary Glucose POCon 11-23 Glucose [Mass/Vol] 198 mg/dL High 55-99 [facility] Comment on above: Result Comment: Yazmin bri Meter Performed By: #### 2 [id number] ####[facility] [address] [place] [address] Glucose [Mass/Vol] 109 mg/dL High 55-99 [facility] Comment on above: Result Comment: Gareth GARDINER Performed By: #### 2 [id number] ####[facility] [address] [place] [address] Discharge Documentationon Discharge Documentation [id number]#1 .00CD:127 Normal [facility] Inpatient Patient Summaryon 12-20-2022 Inpatient Patient Summary [facility] Message from Medicareon 11-23 Message from Medicare [id number]# 1.00CD:127 Normal [facility] Monitor Recordon 12-20-2022 Monitor Record [id number]# 1.00CD:127 Normal [facility] Monitor Record [id number]# 1.00CD:127 Normal [facility] Monitor Record [id number]# 1.00CD:127 Normal [facility] Progress Note-Nurseon 2022 Progress Note-Nurse SBAR report called fanta Robert. Patient was transferred into wheelchair x2 stand pivot. Patient discharged to [facility] room 17. Transport by Samantha Lambert POCT. Normal [facility] Transfer Documentson 023 Transfer Documents [id number]#1 .00CD:127 Normal [facility] eGFROrdered By: SYSTEM SYSTE M on 12-20-2022 GFR/1.73 sq M.predicted among non-blacks MDRD (S/P/Bld) [Vol rate/Area] 77 mL/min/1.73 m2 Normal >=59 [facility] Chem S Comment on above: Order Comment: Order added by Discern Expert. Result Comment: Land Commissioner earnest kidney disease could be indicated at eGFR's of less than 60 mL/min/1.73m2. Kidney failure is indicated at less than 15 mL/min/1.73m2. Performed By: #### 2 350587, 2186690, 79016767, 7424515 ####[facility] [address] [place] [address] Auto Diffon 12-19-2022 Basophils/100 WBC (Bld) 0.4 % Normal 0.0-2.0 [facility] Comment on above: Order Comment: Order Added by Discern Expert. Performed By: #### 1 5391668, 9065970, 2064244, 7962780 ####[facility] [address] [place] [address] Basophils/Leukocytes Auto (Bld) [Pure # fraction] 0.0 E9/L Normal 0.0-0.2 [facility] Comment on above: Order Comment: Order Added by Discern Expert. Performed By: #### 1 7303379, 5328905, 6188981, 6049900 ####[facility] [address] [place] [address] Eosinophils/100 WBC (Bld) 4.2 % Normal 0.0-8.0 [facility] Comment on above: Order Comment: Order Added by Discern Expert. Performed By: #### 1 6603285, 7704870, 2680924, 3881147 ####[address] [place] [address] Eosinophils/Leukocytes Auto (Bld) [Pure # fraction] 0.6 E9/L High 0.0-0.5 [facility] Comment on above: Order Comment: Order Added by Bethany Expert. Performed By: #### 1 4134248, 9916470, 4779298, 3814553 ####[address] [address] Lymphocytes/100 WBC (Bld) 7.3 % Low 14.0-50.0 [facility] Comment on above: Order Comment: Order Added by Bethany Expert. Performed By: #### 1 5316419, 5361348, 9017309, 9675756 ####[address] [address] Lymphocytes/Leukocytes Auto (Bld) [Pure # fraction] 1.0 E9/L Normal 1.0-4.0 [facility] Comment on above: Order Comment: Order Added by Bethany Expert. Performed By: #### 1 9761280, 9323564, 6504238, 3519847 ####[address] [address] Monocytes/100 WBC (Bld) 6.5 % Normal 4.0-14.0 [facility] Comment on above: Order Comment: Order Added by Bethany Expert. Performed By: #### 1 5491667, 9693456, 8578099, 3081600 ####[address] [place] [address] Monocytes/Leukocytes Auto (Bld) [Pure # fraction] 0.9 E9/L Normal 0.2-1.0 [facility] Comment on above: Order Comment: Order Added by Bethany Expert. Performed By: #### 1 0943627, 4109180, 2968586, 1584690 ####[address] [address] Neutrophils/100 WBC (Bld) 81.6 % High 36.0-75.0 [facility] Comment on above: Order Comment: Order Added by Discern Expert. Performed By: #### 1 6507004, 1572605, 6664542, 8277786 ####[facility] [address] [place] [address] Neutrophils/Leukocytes Auto (Bld) [Pure # fraction] 10.7 E9/L High 2.0-7.5 [facility] Comment on above: Order Comment: Order Added by Discern Expert. Performed By: #### 1 5134812, 1076384, 7105429, 0555632 ####[facility] [address] [place] [address] BMPon 12-19-2022 Anion gap [Moles/Vol] 11 mmol/L Normal 6-16 [facility] Comment on above: Performed By: #### 1 2449447, 2700475, 0130513, 5613634 ####[facility] [address] [place] [address] Calcium [Mass/Vol] 8.5 mg/dL Low 8.9-11.1 [facility] Comment on above: Performed By: #### 1 6959814, 8078534, 3702690, 3773860 ####[facility] [address] [place] [address] Chloride [Moles/Vol] 103 mmol/L Normal 101-111 [facility] [place] [facility] Comment on above: Performed By: #### 1 7718250, 1220307, 2593371, 3106797 ####[facility] [address] [place] [address] CO2 [Moles/Vol] 28 mmol/L Normal 21-[address] [facility] Comment on above: Performed By: #### 1 8601946, 6354005, 1285081, 1063795 ####[facility] [address] [place] [address] Creatinine [Mass/Vol] 1.2 mg/dL Normal 0.5-1.3 [facility] Comment on above: Performed By: #### 1 8385087, 5717918, 3258895, 3206795 ####[facility] [address] [place] [address] Glucose [Mass/Vol] 86 mg/dL Normal 55-199 [facility] Comment on above: Result Comment: If t his glucose result represents a fasting glucose, interpretation should refer to the following reference range: 55-99 mg/dL Performed By: #### 1 3991134, 3162114, 3704966, 9465343 ####[facility] [address] [place] [address] Potassium [Moles/Vol] 4.5 mmol/L Normal 3.5-5.3 [facility] Comment on above: Performed By: #### 1 1614684, 7361363, 8803213, 4773138 ####[facility] [address] [place] [address] Sodium [Moles/Vol] 137 mmol/L Normal 135-145 [facility] Comment on above: Performed By: #### 1 4335266, 9464238, 8847528, 2598941 ####[facility] [address] [place] [address] Urea nitrogen [Mass/Vol] 35 mg/dL High 5-21 [facility] Comment on above: Performed By: #### 1 7167655, 5191043, 5612675, 5380451 ####[facility] [address] [place] [address] Urea nitrogen/Creatinine [Mass ratio] 29 No Units High 10-20 [facility] Comment on above: Performed By: #### 1 4877786, 9907573, 0707130, 2757077 ####[facility] [address] [place] [address] CBC w/ Auto Diffon 3 Erythrocyte distribution width (RBC) [Ratio] 15.0 % High 10.9-14.2 [facility] Comment on above: Performed By: #### 1 6495653, 8884491, 6497558, 6989454 ####[facility] [address] [place] [address] Hematocrit (Bld) [Volume fraction] 38.4 % Normal 37.7-49.0 [facility] Comment on above: Performed By: #### 1 8511321, 0776512, 3022959, 3533567 ####[address] [address] Hemoglobin (Bld) [Mass/Vol] 12.7 g/dL Low 13.5-17.5 [facility] Comment on above: Performed By: #### 1 9933572, 6715848, 1236023, 9652048 ####[place] [address] MCH (RBC) [Entitic mass] 27.9 pg Normal 27.0-34.0 [facility] Comment on above: Performed By: #### 1 2663530, 2774580, 5736921, 3894716 ####[place] [address] MCHC (RBC) [Mass/Vol] 32.9 g/dL Normal 31.4-36.0 [facility] Comment on above: Performed By: #### 1 3502355, 5812141, 4198713, 6134740 ####[address] [address] MCV (RBC) [Entitic vol] 84.8 fL Normal 80.0-100.0 [facility] Comment on above: Performed By: #### 1 8259305, 0499139, 4866753, 6831402 ####[address] [address] Platelet mean volume (Bld) [Entitic vol] 9.5 fL Normal 6.4-10.8 [facility] Comment on above: Performed By: #### 1 1961694, 8108510, 3423243, 0132017 ####[address] [address] Platelets (Bld) [#/Vol] 230.0 E9/L Normal 150.0-500.0 [facility] Comment on above: Performed By: #### 1 5284796, 5442393, 9757677, 4304187 ####[facility] [address] [place] [address] RBC (Bld) [#/Vol] 4.5 E12/L Normal 4.3-5.9 [facility] Comment on above: Performed By: #### 1 8150734, 0632187, 1992233, 4613188 ####[facility] [address] [place] [address] WBC corrected for nucl RBC Auto (Bld) [#/Vol] 13.1 E9/L High 4.0-11.[address] [facility] Comment on above: Performed By: #### 1 2672094, 2337103, 0304598, 5204620 ####[facility] [address] [place] [address] CHEMISTRYOrdered By: Lab ROP User on 12-19-2022 Glucose [Mass/Vol] 210 mg/dL High 55 - 99 mg/dL [facility] P[facility] Subsection Comment on above: Result Comment: Gareth guerrero RN/ POC Device SN [id number] Invalid Interpretation Code [facility] POC Subsection POC User ID [id number] Invalid Interpretation Code [facility] P[facility] Subsection POC Username SHER GAVIRIA Invalid Interpretation Code [facility] Subsection Glucose [Mass/Vol] 111 mg/dL High 55 - 99 mg/dL [facility] Subsection Comment on above: Result Comment: Gareth guerrero RN/ POC Device SN [id number] Invalid Interpretation Code [facility] Subsection POC User ID [id number] Invalid Interpretation Code [facility] P[facility] Subsection POC Username KELLEN HERNANDEZ Invalid Interpretation Code [facility] Subsection CHEMISTRYOrdered By: SYSTEM SYSTEM on 12-19-2022 Anion gap [Moles/Vol] 11 mmol/L Normal 6 - 16 mEq/L [facility] Remisol Calcium [Mass/Vol] 8.5 mg/dL Low 8.9 - 11. 1 mg/dL [facility] Remisol Chloride [Moles/Vol] 103 mmol/L Normal 101 - 1 11 mmol/L [facility] Remisol CO2 [Moles/Vol] 28 mmol/L Normal 21 - 31 mmol/L [facility] Remisol Creatinine [Mass/Vol] 1.2 mg/dL Normal 0.5 - 1.3 mg/dL [facility] Remisol GFR/1.73 sq M.predicted among non-blacks MDRD (S/P/Bld) [Vol rate/Area] 62 mL/min/1.73 m2 Normal >=59mL/min/ 1.73 m2 [facility] Chem S Glucose [Mass/Vol] 86 mg/dL Normal 55 - 199 mg/dL [facility] Remisol Potassium [Moles/Vol] 4.5 mmol/L Normal 3.5 - 5.3 mmol/L [facility] Remisol Sodium [Moles/Vol] 137 mmol/L Normal 135 - 145 mmol/L [facility] Remisol Urea nitrogen [Mass/Vol] 35 mg/dL High 5 - 21 mg/dL [facility] Remisol Urea nitrogen/Creatinine [Mass ratio] 29 mg/mg High 10 - 20 [facility] Remisol Capillary Glucose POCon 11-22 Glucose [Mass/Vol] 210 mg/dL High 55-99 [facility] Comment on above: Result Comment: Gareth GARDINER Performed By: #### 2 [id number] ####[facility] [address] [place] [address] Glucose [Mass/Vol] 111 mg/dL High 55- [facility] Comment on above: Result Comment: Gareth GARDINER Performed By: #### 2 49193505 ####[facility] [address] [place] [address] Glucose [Mass/Vol] 201 mg/dL High 55- [facility] Comment on above: Result Comment: Gareth GARDINER Performed By: #### 2 64682933 ####[facility] [address] [place] [address] Glucose [Mass/Vol] 93 mg/dL Normal 55-99 [facility] Comment on above: Result Comment: Gareth GARDINER Performed By: #### 2 30382281 ####[facility] [address] [place] [address] HEMATOLOGYOrdered By: SYSTEM SYSTEM on 12-19-2022 Basophils/100 [...] 9.5 fL Normal 6.4 - 10.8 fL [facility] HemeAutoSS Platelets (Bld) [#/Vol] 230.0 E9/L Normal 150. 0 - 500.0 E9/L [facility] HemeAutoSS RBC (Bld) [#/Vol] 4.5 E12/L Normal 4.3 - 5.9 E12/L [facility] HemeAutoSS WBC corrected for nucl RBC Auto (Bld) [#/Vol] 13.1 E9/L High 4.0 - 11.0 E9/L [facility] HemeAutoSS Monitor Recordon 12-19-2022 Monitor Record [id number]# 1.00CD:127 Normal [facility] Monitor Record [id number]# 1.00CD:127 Normal [facility] Progress Note-Physicianon Progress Note-Physician Normal [facility] Comment on above: Result Comment: Elec tronically Signed By: MICHAEL POTTS, Jamir\.br\Date and Time Signed: 12/19/22 09:47 EDT eGFRon 12-19-2022 GFR/1.73 sq M.predicted among non-blacks MDRD (S/P/Bld) [Vol rate/Area] 62 mL/min/1.73 m2 Normal >=59 [facility] Comment on above: Order Comment: Order added by Discern Expert. Result Comment: Land Commissioner earnest kidney disease could be indicated at eGFR's of less than 60 mL/min/1.73m2. Kidney failure is indicated at less than 15 mL/min/1.73m2. Performed By: #### 1 8825742, 1865774, 2568967, 5275861 ####[facility] [address] [place] [address] Auto Diffon 12-18-2022 Basophils/100 WBC (Bld) 0.4 % Normal 0.0-2.0 [facility] Comment on above: Order Comment: Order Added by Discern Expert. Performed By: #### 2 697737, 6210857 ####[facility] [address] [place] [address] Basophils/Leukocytes Auto (Bld) [Pure # fraction] 0.1 E9/L Normal 0.0-0.2 [facility] Comment on above: Order Comment: Order Added by Discern Expert. Performed By: #### 2 767403, 1804706 ####[facility] [address] [place] [address] Eosinophils/100 WBC (Bld) 2.8 % Normal 0.0-8.0 [facility] Comment on above: Order Comment: Order Added by Discern Expert. Performed By: #### 2 782740, 0862231 ####[facility] [address] [place] [address] Eosinophils/Leukocytes Auto (Bld) [Pure # fraction] 0.4 E9/L Normal 0.0-0.5 [facility] Comment on above: Order Comment: Order Added by Discern Expert. Performed By: #### 2 609546, 5242986 ####[address] [place] [address] Lymphocytes/100 WBC (Bld) 9.0 % Low 14.0-50.0 [facility] Comment on above: Order Comment: Order Added by Discern Expert. Performed By: #### 2 057998, 7300261 ####[address] [address] Lymphocytes/Leukocytes Auto (Bld) [Pure # fraction] 1.3 E9/L Normal 1.0-4.0 [facility] Comment on above: Order Comment: Order Added by Discern Expert. Performed By: #### 2 414615, 0797597 ####[facility] [address] [place] [address] Monocytes/100 WBC (Bld) 8.3 % Normal 4.0-14.0 [facility] Comment on above: Order Comment: Order Added by Discern Expert. Performed By: #### 2 370623, 1815328 ####[facility] [address] [place] [address] Monocytes/Leukocytes Auto (Bld) [Pure # fraction] 1.3 E9/L High 0.2-1.0 [facility] Comment on above: Order Comment: Order Added by Discern Expert. Performed By: #### 2 395891, 2243076 ####[address] [place] [address] Neutrophils/100 WBC (Bld) 79.5 % High 36.0-75.0 [facility] Comment on above: Order Comment: Order Added by Discern Expert. Performed By: #### 2 065589, 0877300 ####[address] [address] Neutrophils/Leukocytes Auto (Bld) [Pure # fraction] 11.9 E9/L High 2.0-7.5 [facility] Comment on above: Order Comment: Order Added by Bethany Expert. Performed By: #### 2 502674, 0320583 ####[address] [address] Basophils/100 WBC (Bld) 0.6 % Normal 0.0-2.0 [facility] Comment on above: Order Comment: Order Added by Bethany Expert. Performed By: #### 1 7220003, 1425302, 29478862, 0822661, 73626399, 46571748, 0761769 ####[address] [address] Basophils/Leukocytes Auto (Bld) [Pure # fraction] 0.1 E9/L Normal 0.0-0.2 [facility] Comment on above: Order Comment: Order Added by Bethany Expert. Performed By: #### 1 0528795, 2689969, 21144307, 8423931, 40843157, 81767013, 8528247 ####[address] [address] Eosinophils/100 WBC (Bld) 2.0 % Normal 0.0-8.0 [facility] Comment on above: Order Comment: Order Added by Bethany Expert. Performed By: #### 1 2774961, 5176699, 19064074, 9362933, 60070337, 78594511, 6565375 ####[address] [place] [address] Eosinophils/Leukocytes Auto (Bld) [Pure # fraction] 0.3 E9/L Normal 0.0-0.5 [facility] Comment on above: Order Comment: Order Added by Discern Expert. Performed By: #### 1 7680458, 8017367, 67164817, 7291913, 36379089, 18810937, 4763322 ####[address] [place] [address] Lymphocytes/100 WBC (Bld) 7.6 % Low 14.0-50.0 [facility] Comment on above: Order Comment: Order Added by Discern Expert. Performed By: #### 1 0758241, 6596542, 22305185, 8706467, 39776132, 67154252, 0466536 ####[address] [address] Lymphocytes/Leukocytes Auto (Bld) [Pure # fraction] 1.3 E9/L Normal 1.0-4.0 [facility] Comment on above: Order Comment: Order Added by Discern Expert. Performed By: #### 1 2162605, 3400595, 22567182, 1027574, 52158686, 22146281, 2562686 ####[address] [address] Monocytes/100 WBC (Bld) 7.8 % Normal 4.0-14.0 [facility] Comment on above: Order Comment: Order Added by Discern Expert. Performed By: #### 1 8204595, 6315647, 53852189, 8323160, 37064569, 33028160, 6636230 ####[address] [place] [address] Monocytes/Leukocytes Auto (Bld) [Pure # fraction] 1.3 E9/L High 0.2-1.0 [facility] Comment on above: Order Comment: Order Added by Discern Expert. Performed By: #### 1 4276851, 4294551, 34433354, 0161271, 47917897, 50138456, 8477875 ####[facility] [address] [place] [address] Neutrophils/100 WBC (Bld) 82.0 % High 36.0-75.0 [facility] Comment on above: Order Comment: Order Added by Discern Expert. Performed By: #### 1 1210281, 6062038, 89366623, 3601512, 67199647, 75842476, 3671019 ####[facility] [address] [place] [address] Neutrophils/Leukocytes Auto (Bld) [Pure # fraction] 13.7 E9/L High 2.0-7.5 [facility] Comment on above: Order Comment: Order Added by Discern Expert. Performed By: #### 1 7628180, 9010658, 58331006, 7325308, 67811862, 92953637, 9075890 ####[facility] [address] [place] [address] BMPon 12-18-2022 Creatinine [Mass/Vol] 1.6 mg/dL High 0.5-1.3 [facility] Comment on above: Performed By: #### 2 978328, 1920538, 5986753178, 51102117, 31826045 ####[facility] [address] [place] [address] Urea nitrogen [Mass/Vol] 47 mg/dL High 5-21 [facility] Comment on above: Performed By: #### 2 206518, 6226666, 1948127499, 18684500, 27809424 ####[facility] [address] [place] [address] Urea nitrogen/Creatinine [Mass ratio] 29 No Units High 10-20 [facility] Comment on above: Performed By: #### 2 571239, 4371344, 4453914941, 37419334, 02226976 ####[facility] [address] [place] [address] Anion gap [Moles/Vol] 12 mmol/L Normal 6-16 [facility] Comment on above: Performed By: #### 2 527220, 8731494, 2666627454, 07123887, 52215696 ####[facility] [address] [place] [address] Calcium [Mass/Vol] 8.7 mg/dL Low 8.9-11.1 [facility] Comment on above: Performed By: #### 2 585841, 7639709, 2201093635, 19906736, 16311998 ####[facility] [address] [place] [address] Chloride [Moles/Vol] 97 mmol/L Low 101-111 [facility] [place] [facility] Comment on above: Performed By: #### 2 940582, 1633762, 5839275356, 51504349, 95081286 ####[facility] [address] [place] [address] CO2 [Moles/Vol] 32 mmol/L High 21-[address] [facility] Comment on above: Performed By: #### 2 821676, 8669981, 7058755734, 02919252, 61039039 ####[facility] [address] [facility] [place] [address] Glucose [Mass/Vol] 131 mg/dL Normal 55-199 [facility] Comment on above: Result Comment: If t his glucose result represents a fasting glucose, interpretation should refer to the following reference range: 55-99 mg/dL Performed By: #### 2 663496, 4412484, 1828971132, 96029665, 56337821 ####[facility] [address] [place] [address] Potassium [Moles/Vol] 3.7 mmol/L Normal 3.5-5.3 [facility] Comment on above: Performed By: #### 2 320863, 9616278, 4358092551, 50204197, 11018008 ####[facility] [address] [place] [address] Sodium [Moles/Vol] 137 mmol/L Normal 135-145 [facility] Comment on above: Performed By: #### 2 236603, 5953291, 2049084799, 57191776, 59707148 ####[facility] [address] [place] [address] Creatinine [Mass/Vol] 1.8 mg/dL High 0.5-1.3 [facility] Comment on above: Performed By: #### 1 2072500, 8897762, 50018842, 2885558, 09223940, 26307493, 9980698 ####[facility] [address] [place] [address] Urea nitrogen [Mass/Vol] 49 mg/dL High 5-21 [facility] Comment on above: Performed By: #### 1 3004742, 5807392, 03685696, 8967185, 07993107, 19033689, 6811527 ####[facility] [address] [place] [address] Urea nitrogen/Creatinine [Mass ratio] 27 No Units High 10-20 [facility] Comment on above: Performed By: #### 1 9734683, 0262386, 97603904, 6658119, 02599617, 70953462, 3244297 ####[facility] [address] [place] [address] Anion gap [Moles/Vol] 18 mmol/L High 6-16 [facility] Comment on above: Performed By: #### 1 1876034, 1610976, 65776593, 8247888, 64273985, 73706390, 2598663 ####[facility] [address] [place] [address] Calcium [Mass/Vol] 9.3 mg/dL Normal 8.9-11.1 [facility] Comment on above: Performed By: #### 1 7158251, 1257184, 66764997, 7456059, 19797753, 53172571, 7104464 ####[facility] [address] [place] [address] Chloride [Moles/Vol] 93 mmol/L Low 101-111 [facility] Comment on above: Performed By: #### 1 5565487, 4157645, 26438548, 5714403, 79293190, 31017396, 7627934 ####[facility] [address] [place] [address] CO2 [Moles/Vol] 29 mmol/L Normal 21-[address] [facility] Comment on above: Performed By: #### 1 3886024, 0255307, 39858779, 4256680, 69732225, 63762578, 5384917 ####[facility] [address] [place] [address] Glucose [Mass/Vol] 137 mg/dL Normal 55-199 [facility] Comment on above: Result Comment: If t his glucose result represents a fasting glucose, interpretation should refer to the following reference range: 55-99 mg/dL Performed By: #### 1 1044017, 3967016, 95907326, 7083034, 42494568, 58466711, 2806810 ####[facility] [address] [place] [address] Potassium [Moles/Vol] 4.0 mmol/L Normal 3.5-5.3 [facility] Comment on above: Performed By: #### 1 8752168, 3816617, 82806814, 7118190, 59086193, 63946863, 9833063 ####[facility] [address] [place] [address] Sodium [Moles/Vol] 136 mmol/L Normal 135-145 [facility] Comment on above: Performed By: #### 1 0580125, 7744047, 07924117, 1072190, 39297381, 72433723, 6455719 ####[facility] [address] [place] [address] BNPon 12-18-2022 Int Ctr BNP Pass Normal [facility] Comment on above: Performed By: #### 1 0683169, 1571352, 15636443, 7998681, 17824109, 95262769, 9099830 ####[address] [place] [address] Natriuretic peptide B (Bld) [Mass/Vol] 219 pg/mL High 5-80 [facility] Comment on above: Performed By: #### 1 8445090, 3967514, 01282122, 5451375, 88285996, 50062010, 6603368 ####[address] [address] CBC w/ Auto Diffon Erythrocyte distribution width (RBC) [Ratio] 14.8 % High 10.9-14.2 [facility] Comment on above: Performed By: #### 2 989937, 7130587 ####[place] [address] Hematocrit (Bld) [Volume fraction] 37.8 % Normal 37.7-49.0 [facility] Comment on above: Performed By: #### 2 586941, 8349757 ####[place] [address] Hemoglobin (Bld) [Mass/Vol] 12.7 g/dL Low 13.5-17.5 [facility] Comment on above: Performed By: #### 2 494133, 9589541 ####[address] [address] MCH (RBC) [Entitic mass] 28.3 pg Normal 27.0-34.0 [facility] Comment on above: Performed By: #### 2 605532, 3410753 ####[address] [address] MCHC (RBC) [Mass/Vol] 33.6 g/dL Normal 31.4-36.0 [facility] Comment on above: Performed By: #### 2 267318, 8953325 ####[address] [address] MCV (RBC) [Entitic vol] 84.2 fL Normal 80.0-100.0 [facility] Comment on above: Performed By: #### 2 799198, 8756230 ####[address] [address] Platelet mean volume (Bld) [Entitic vol] 9.2 fL Normal 6.4-10.8 [facility] Comment on above: Performed By: #### 2 297830, 5552711 ####[address] [address] Platelets (Bld) [#/Vol] 219.0 E9/L Normal 150.0-500.0 [facility] Comment on above: Performed By: #### 2 007248, 6068073 ####[place] [address] RBC (Bld) [#/Vol] 4.5 E12/L Normal 4.3-5.9 [facility] Comment on above: Performed By: #### 2 965576, 8299292 ####[place] [address] WBC corrected for nucl RBC Auto (Bld) [#/Vol] 15.0 E9/L High 4.0-11.[address] [facility] Comment on above: Performed By: #### 2 259811, 5255009 ####[place] [address] Erythrocyte distribution width (RBC) [Ratio] 14.9 % High 10.9-14.2 [facility] Comment on above: Performed By: #### 1 6024705, 7231459, 41113439, 8255288, 19308377, 22076287, 6727390 ####[address] [address] Hematocrit (Bld) [Volume fraction] 42.8 % Normal 37.7-49.0 [facility] Comment on above: Performed By: #### 1 7440410, 0044659, 28179116, 5947851, 05413854, 31287059, 2591776 ####[facility] [address] [place] [address] Hemoglobin (Bld) [Mass/Vol] 14.3 g/dL Normal 13.5-17.5 [facility] Comment on above: Performed By: #### 1 6803997, 5816327, 22697330, 0190507, 36623312, 87819757, 5836505 ####[facility] [address] [place] [address] MCH (RBC) [Entitic mass] 28.1 pg Normal 27.0-34.0 [facility] Comment on above: Performed By: #### 1 6828129, 4126630, 73860902, 0353094, 86509468, 89970207, 0133816 ####[place] [address] MCHC (RBC) [Mass/Vol] 33.3 g/dL Normal 31.4-36.0 [facility] Comment on above: Performed By: #### 1 7568688, 6344238, 42557448, 6025673, 76122143, 99425601, 9496594 ####[address] [address] MCV (RBC) [Entitic vol] 84.3 fL Normal 80.0-100.0 [facility] Comment on above: Performed By: #### 1 9126174, 4744571, 06186213, 3693091, 86525693, 36262430, 1342345 ####[address] [place] [address] Platelet mean volume (Bld) [Entitic vol] 9.8 fL Normal 6.4-10.8 [facility] Comment on above: Performed By: #### 1 3093782, 8824259, 76105289, 8127322, 13557091, 57548016, 5349477 ####[address] [place] [address] Platelets (Bld) [#/Vol] 234.0 E9/L Normal 150.0-500.0 [facility] Comment on above: Performed By: #### 1 5664271, 5407593, 25793648, 9470228, 38704656, 98184275, 1460698 ####[facility] [address] [place] [address] RBC (Bld) [#/Vol] 5.1 E12/L Normal 4.3-5.9 [facility] Comment on above: Performed By: #### 1 5695294, 4330537, 41527648, 1957273, 19934554, 20672402, 2752863 ####[facility] [address] [place] [address] WBC corrected for nucl RBC Auto (Bld) [#/Vol] 16.7 E9/L High 4.0-11.[address] [facility] Comment on above: Result Comment: Slid e reviewed by JENNIFER. Performed By: #### 1 9400185, 6062753, 47954053, 9707881, 43797238, 08879342, 8182608 ####[facility] [address] [place] [address] CHEMISTRYOrdered By: SYSTEM SYSTEM on 12-18-2022 Troponin [...] 44 mL/min/1.73 m2 Low >=59mL/min/ 1.73 m2 [facility] Chem S Glucose [Mass/Vol] 131 mg/dL Normal 55 - 199 mg/dL FT Remisol Potassium [Moles/Vol] 3.7 mmol/L Normal 3.5 - 5.3 mmol/L FT Remisol Procalcitonin 0.09 ng/mL Normal 0.00 - 0.50 ng/mL [facility] Remisol Sodium [Moles/Vol] 137 mmol/L Normal 135 - 145 mmol/L [facility] Remisol Troponin I.cardiac [Mass/Vol] 22.50 pg/mL Normal 15.90 - 38.40 pg/mL [facility] Remisol Urea nitrogen [Mass/Vol] 47 mg/dL High 5 - 21 mg/dL [facility] Remisol Urea nitrogen/Creatinine [Mass ratio] 29 mg/mg High 10 - 20 [facility] Remisol CHEMISTRYOrdered By: Yanet Apodaca on 12-18-2022 Troponin I.cardiac [Mass/Vol] 18.80 pg/mL Normal 15.90 - 38.40 pg/mL [facility] Remisol Natriuretic peptide B (Bld) [Mass/Vol] 219 pg/mL High 5 - 80 pg/mL [facility] HemeManSS CKon 12-18-2022 CK [Catalytic activity/Vol] 55 Int._Unit/L Normal 14-261 [facility] Comment on above: Performed By: #### 2 461078, 8441152, 1031411126, 10471226, 56921648 ####[facility] [address] [place] [address] COAGULATIONOrdered By: Rachael Apodaca on 12-18-2022 aPTT Coag (PPP) [Time] 30.6 s Normal 25.1 - 36.5 second(s) [facility] Auto Coag INR Coag (PPP) [Relative time] 1.1 {INR} Invalid Interpretation Code FT Auto Coag PT Coag (PPP) [Time] 12.5 s Normal 9.4 - 1 2.5 second(s) FT Auto Coag CT Head or Brain w/o Contras ton 12-18-2022 CT Head or Brain w/o Contrast Normal [facility] CT Spine Cervical w/o Contra ston 12-18-2022 CT Spine Cervical w/o Contrast Normal [facility] Capillary Glucose POCon 11-22 Glucose [Mass/Vol] 212 mg/dL High 55-99 [facility] Comment on above: Result Comment: Gareth GARDINER Performed By: #### 2 [id number] ####[facility] [address] [place] [address] Glucose [Mass/Vol] 97 mg/dL Normal 55-99 [facility] Comment on above: Result Comment: Yazmin bri Meter Performed By: #### 2 23369549 ####[facility] [address] [place] [address] Glucose [Mass/Vol] 119 mg/dL High 55-99 [facility] Comment on above: Result Comment: Gareth GARDINER Performed By: #### 2 09095318 ####[facility] [address] [place] [address] Glucose [Mass/Vol] 131 mg/dL High 55-99 [facility] Comment on above: Result Comment: Gareth GARDINER Performed By: #### 2 70792368 ####[facility] [address] [place] [address] Consent for Treatmenton 11-22 Consent for Treatment [id number]# 1.00CD:127 Normal [facility] ED Clinical Summaryon 2022 ED Clinical Summary Normal [facility] ED Note-Physicianon 12-19-19 23 ED Note-Physician Normal [facility] Comment on above: Result Comment: Elec tronically Signed By: Guilherme POTTS, Malcom\.br\Date and Time Signed: 12/18/22 04:33 EDT ED Patient Education Noteon 12-18-2022 ED Patient Education Note Normal [facility] ED Patient Summaryon 023 ED Patient Summary Normal [facility] ED Traumaon 12-18-2022 ED Trauma [id number]# 1.00CD:127 Normal [facility] HEMATOLOGYOrdered By: SYSTEM SYSTEM on [...] 33.6 g/dL Normal 31.4 - 36.0 gm/dL [facility] HemeAutoSS MCV (RBC) [Entitic vol] 84.2 fL Normal 80.0 - 100.0 fL FT HemeAutoSS Platelet mean volume (Bld) [Entitic vol] 9.2 fL Normal 6.4 - 10.8 fL [facility] HemeAutoSS Platelets (Bld) [#/Vol] 219.0 E9/L Normal 150. 0 - 500.0 E9/L [facility] HemeAutoSS RBC (Bld) [#/Vol] 4.5 E12/L Normal 4.3 - 5.9 E12/L [facility] HemeAutoSS WBC corrected for nucl RBC Auto (Bld) [#/Vol] 15.0 E9/L High 4.0 - 11.0 E9/L [facility] HemeAutoSS Insurance Correspondence Off iceon 12-18-2022 Insurance Correspondence Office [id number]#1 .00CD:127 Normal [facility] Interdisciplinary Note - Santosh e Manageron 12-18-2022 Interdisciplinary Note - Sports Writer [facility] Comment on above: Result Comment: Elec tronically Signed By: Lucero Watson\.br\Date and Time Signed: 12/18/22 14:57 EDT Interdisciplinary Note - Dejuan singon 12-18-2022 Interdisciplinary Note - Nursing Patient he is confused and he does not able to answer my questions. informed staff in the [facility] to send current medication list in fax.3N Normal [facility] Interdisciplinary Note - PTo n 12-18-2022 Interdisciplinary Note - PT Normal [facility] Laboratory - Microbiology an d Antimicrobial susceptibilityOrdered By: Karen Vergara on 12-18-2022 Bacteria identified Cx Nom (U) 10,000 cfu/ml Staphylococcus species Continuing incubation [facility] Monitor Recordon 12-18-2022 Monitor Record [id number]# 1.00CD:127 Normal [facility] No Panel InformationOrdered By: Karen Vergara on 12-18-2022 Blood Culture Charcoal Streptococcus spe cies Staphylococcus species coagulase negative In 1 of 2 blood culture bottles drawn. Isolated from aerobic bottle Preliminary gram stain results of gram positive cocci in clusters Result called to Dr. Mckinney by and results read back for confirmation on 12/19/2022 09:39:39 [facility] No Panel InformationOrdered By: [facility] on 12-18-2022 Blood Culture Charcoal No growth at 2 da ys. Final to follow at 7 days. [facility] PT & PTTon 12-18-2022 aPTT Coag (PPP) [Time] 30.6 second(s) Normal 25.1-36.5 [facility] Comment on above: Result Comment: [...] the same coagulation reagent and instrumentation as [facility]. Currently there are no coagulation studies available worldwide for children to 14 days, and no normal ranges. Heparin therapeutic range (represented by Anti-Factor Xa activity of 0.2 - 0.4 U/mL) corresponds to PTT of 56.6 - 109.0 sec. Performed By: #### 1 9881865, 2024427, 74012437, 9465288, 79134828, 13393603, 9390892 ####[facility] [address] [place] [address] INR Coag (PPP) [Relative time] 1.1 {INR} Invalid Interpretation Code [facility] Comment on above: Result Comment: INR results are specifically intended to assess patients stabilized on long-term Anticoagulation therapy suggested INR?s ?Less Intensive Anticoagulation? 2.0 ? 3.0Conventional Range 3.0 ? 4.5 Performed By: #### 1 7604373, 2244777, 67516411, 0251010, 80999528, 78548855, 5876024 ####[facility] [address] [place] [address] PT Coag (PPP) [Time] 12.5 second(s) Normal 9.4-12.5 [facility] Comment on above: Result Comment: [...] the same coagulation reagent and instrumentation as [facility]. Currently there are no coagulation studies available worldwide for children to 14 days, and no normal ranges. Performed By: #### 1 3924697, 7315028, 33683172, 9303943, 41083058, 68535383, 7765331 ####[facility] [address] [place] [address] Procalcitoninon 12-18-2022 Procalcitonin .09 ng/mL Normal .00-.50 [facility] Comment on above: Result Comment: <0.5 ng/mL [...] to 24 hours. Performed By: #### 2 550045, 3115556, 6290021781, 16443364, 65324663 ####[facility] [address] [place] [address] RAD - Preliminary Cat Scan R eporton 12-18-2022 RAD - Preliminary Cat Scan Report [id number]# 1.00CD:127 Normal [facility] Troponin 0 Hr.on 12-18-2022 Troponin I.cardiac [Mass/Vol] 23.50 pg/mL Normal 15.90-38.40 [facility] Comment on above: Result Comment: The 95% CI (Confidence Interval) PPV (Positive Predictive Value) for myocardial infarction in females is 38 pg/mL, in males 51 pg/mL. The results should be used in conjunction with clinical conditions of myocardial infarction.(ImageBrief High Sensitivity Troponin I Instructions For Use, [place], December 2017) Performed By: #### 1 0528686, 9373123, 48839158, 4485587, 82759608, 90401407, 9868279 ####[facility] [address] [place] [address] Troponin 3 Hr.on 12-18-2022 Troponin I.cardiac [Mass/Vol] 18.80 pg/mL Normal 15.90-38.40 [facility] Comment on above: Result Comment: The 95% CI (Confidence Interval) PPV (Positive Predictive Value) for myocardial infarction in females is 38 pg/mL, in males 51 pg/mL. The results should be used in conjunction with clinical conditions of myocardial infarction.(ImageBrief High Sensitivity Troponin I Instructions For Use, [place], December 2017) Performed By: #### 1 4255794 ####[facility] [address] [place] [address] Troponin 6 Hr.on 12-18-2022 Troponin I.cardiac [Mass/Vol] 22.50 pg/mL Normal 15.90-38.40 [facility] Comment on above: Result Comment: The 95% CI (Confidence Interval) PPV (Positive Predictive Value) for myocardial infarction in females is 38 pg/mL, in males 51 pg/mL. The results should be used in conjunction with clinical conditions of myocardial infarction.(Access High Sensitivity Troponin I Instructions For Use, [place], December 2017) Performed By: #### 2 052405, 1153790, 0225848388, 75535785, 37971543 ####[facility] [address] [place] [address] Troponin 9 Hr.on 12-18-2022 Troponin I.cardiac [Mass/Vol] 18.90 pg/mL Normal 15.90-38.40 [facility] Comment on above: Result Comment: The 95% CI (Confidence Interval) PPV (Positive Predictive Value) for myocardial infarction in females is 38 pg/mL, in males 51 pg/mL. The results should be used in conjunction with clinical conditions of myocardial infarction.(Access High Sensitivity Troponin I Instructions For Use, Claudia Lucas, December 2017) Performed By: #### 1 3090681 ####[address] [address] UA With Cult Reflexon 2022 Bacteria LM Ql (Urine sed) TRACE Normal Trace [facility] Comment on above: Performed By: #### 1 4861695, 9930520 ####[address] [address] Bilirubin Ql (U) Negative Normal Negative [facility] Comment on above: Performed By: #### 1 5556283, 4792569 ####[address] [address] Clarity (U) CLEAR Normal Clear [facility] Comment on above: Performed By: #### 1 9579853, 3265623 ####[address] [address] Color (U) YELLOW Normal Yellow [facility] Comment on above: Performed By: #### 1 9864621, 7306808 ####[address] [address] Epithelial cells.squamous LM.HPF (Urine sed) [#/Area] 0-2 Normal 0-2 [facility] Comment on above: Performed By: #### 1 3445662, 0394853 ####[address] [address] Glucose Test strip (U) [Mass/Vol] Negative Normal Negative [facility] Comment on above: Performed By: #### 1 1148883, 1252103 ####[facility] [address] [place] [address] Hemoglobin Ql (U) TRACE Abnormal Negative [facility] Comment on above: Performed By: #### 1 6322806, 2666839 ####[facility] [address] [place] [address] Ketones (U) [Mass/Vol] Negative Normal Negative [facility] Comment on above: Performed By: #### 1 8578268, 1428596 ####[facility] [address] [place] [address] [place].plasma/[place].R BC (Bld) [Mass ratio] 0-3 Normal 0-3 [facility] Comment on above: Performed By: #### 1 2304947, 8494116 ####[facility] [address] [place] [address] Nitrite Ql (U) Negative Normal Negative [facility] Comment on above: Performed By: #### 1 3905393, 2657703 ####[facility] [address] [place] [address] pH (U) 6.5 [pH] Invalid Interpretation Code 5.0-9.0 [facility] Comment on above: Performed By: #### 1 9709467, 7332592 ####[facility] [address] [place] [address] Protein (U) [Mass/Vol] Negative Normal Negative [facility] Comment on above: Performed By: #### 1 5434241, 6506740 ####[facility] [address] [place] [address] Specific gravity (U) [Rel density] 1.020 Invalid Interpretation Code 1.005-1.030 [facility] Comment on above: Performed By: #### 1 9594570, 1743744 ####[facility] [address] [place] [address] Type of Urine collection method Clean Catch Normal [facility] Comment on above: Performed By: #### 1 9971287, 2589977 ####[facility] [address] [place] [address] Urobilinogen Qn (U) 0.2 {Lei'U}/dL Normal 0.0-1.0 [facility] Comment on above: Performed By: #### 1 5911288, 0818986 ####[facility] [address] [place] [address] WBC Auto Ql (U) 3+ Abnormal Negative [facility] Comment on above: Performed By: #### 1 7128546, 2902321 ####[facility] [address] [place] [address] WBC LM.HPF (Urine sed) [#/Area] /[HPF] Abnormal 0-5 [facility] Comment on above: Performed By: #### 1 4680129, 8567420 ####[facility] [address] [place] [address]257 URINALYSISOrdered By: Houston Castillo on 12-18-2022 Bacteria [...] PM) Normal Negative [facility] UA Auto SS [place].plasma/[place].R BC (Bld) [Mass ratio] 0-3 /HPF Normal 0-3/HPF [facility] UA Au to SS Nitrite Ql (U) Negative (12/18/22 4:45 PM) Normal Negative [facility] UA Auto SS pH (U) 6.5 *NA* (12/18/22 4:45 PM) Invalid Interpretation Code 5.0 - 9.0 FT UA Auto SS Protein (U) [Mass/Vol] Negative (12/18/22 4:45 PM) Normal Negative [facility] UA Auto SS Specific gravity (U) [Rel density] 1.020 *NA* (12/18/22 4:45 PM) Invalid Interpretation Code 1.005 - 1.030 FT UA Auto SS UA Spec Desc Clean Catch (12/18/22 4:45 PM) Normal [facility] UA Auto SS Urobilinogen Qn (U) 0.0850565 {Lei'U}/dL Normal 0.0 - 1.0 EU/dL FT UA Auto SS WBC Auto Ql (U) 3+ *ABN* (12/18/22 4:45 PM) Invalid Interpretation Code Negative [facility] UA Auto SS WBC LM.HPF (Urine sed) [#/Area] /[HPF] Invalid Interpretation Code 0-5/HPF FT UA Auto SS XR Chest Single Viewon 12-18 XR Chest Single View Normal [facility] XR Pelvis 1 or 2 Viewson XR Pelvis 1 or 2 Views Normal Fi [facility] eGFRon 12-18-2022 GFR/1.73 sq M.predicted among non-blacks MDRD (S/P/Bld) [Vol rate/Area] 44 mL/min/1.73 m2 Low >=59 [facility] Comment on above: Order Comment: Order added by Discern Expert. Result Comment: Land Commissioner earnest kidney disease could be indicated at eGFR's of less than 60 mL/min/1.73m2. Kidney failure is indicated at less than 15 mL/min/1.73m2. Performed By: #### 2 264154, 1132304, [id number], 46811480, 94745952 ####[facility] [address] [place] [address] GFR/1.73 sq M.predicted among non-blacks MDRD (S/P/Bld) [Vol rate/Area] 38 mL/min/1.73 m2 Low >=59 [facility] Comment on above: Order Comment: Order added by Discern Expert. Result Comment: Land Commissioner earnest kidney disease could be indicated at eGFR's of less than 60 mL/min/1.73m2. Kidney failure is indicated at less than 15 mL/min/1.73m2. Performed By: #### 1 4010392, 8473935, 82217729, 4652782, 35272482, 86221451, 8389710 ####[facility] [address] [place] [address] Capillary Glucose POCon 11-22 Glucose [Mass/Vol] 165 mg/dL High 55-99 [facility] Comment on above: Result Comment: Yazmin bri Meter Performed By: #### 2 85630896 ####[facility] [address] [place] [address] Glucose [Mass/Vol] 184 mg/dL High - [facility] Comment on above: Performed By: #### 2 62545180 ####[facility] [address] [place] [address] Capillary Glucose POCon 11-22 Glucose [Mass/Vol] 184 mg/dL High [address] Comment on above: Result Comment: Yazmin bri Meter Performed By: #### 2 68795649 ####[facility] [address] [place] [address] Glucose [Mass/Vol] 141 mg/dL High 55- [facility] Comment on above: Result Comment: Yazmin bri Meter Performed By: #### 2 29644759 ####[facility] [address] [place] [address] Capillary Glucose POCon 11-22 Glucose [Mass/Vol] 183 mg/dL High [address] [place] [address] Comment on above: Result Comment: Yazmin bri Meter Performed By: #### 2 30376301 ####[facility] [address] [place] [address] Glucose [Mass/Vol] 147 mg/dL High 55 [facility] Comment on above: Result Comment: Yazmin bri Meter Performed By: #### 2 21458327 ####[facility] [address] [place] [address] Capillary Glucose POCon 11-22 Glucose [Mass/Vol] 188 mg/dL High 55-99 [facility] Comment on above: Result Comment: Yazmin bri Meter Performed By: #### 2 31895193 ####[facility] [address] [place] [address] Glucose [Mass/Vol] 162 mg/dL High 55-99 [facility] Comment on above: Result Comment: Yazmin bri Meter Performed By: #### 2 [id number] ####[facility] [address] [place] [address] Auto Diffon 12-13-2022 Basophils/100 WBC (Bld) 0.0 % Normal 0.0-2.0 [facility] Comment on above: Order Comment: Order Added by Discern Expert. Performed By: #### 1 0089226, 1215799, 417380497, 3349021, 1203178 ####[facility] [address] [place] [address] Basophils/Leukocytes Auto (Bld) [Pure # fraction] 0.0 E9/L Normal 0.0-0.2 [facility] Comment on above: Order Comment: Order Added by Discern Expert. Performed By: #### 1 4015030, 7938538, 428696568, 0493022, 3119777 ####[facility] [address] [place] [address] Eosinophils/100 WBC (Bld) 7.6 % Normal 0.0-8.0 [facility] Comment on above: Order Comment: Order Added by Discern Expert. Performed By: #### 1 1338507, 1470166, 580608203, 2340682, 7310193 ####[facility] [address] [place] [address] Eosinophils/Leukocytes Auto (Bld) [Pure # fraction] 1.0 E9/L High 0.0-0.5 [facility] Comment on above: Order Comment: Order Added by Bethany Expert. Performed By: #### 1 7058748, 4068607, 467178171, 6678872, 1934932 ####[address] [place] [address] Lymphocytes/100 WBC (Bld) 10.3 % Low 14.0-50.0 [facility] Comment on above: Order Comment: Order Added by Discern Expert. Performed By: #### 1 5541501, 0281503, 547712337, 5673620, 2294177 ####[address] [place] [address] Lymphocytes/Leukocytes Auto (Bld) [Pure # fraction] 1.3 E9/L Normal 1.0-4.0 [facility] Comment on above: Order Comment: Order Added by Bethany Expert. Performed By: #### 1 9286391, 1416231, 242977773, 4333841, 4907248 ####[address] [address] Monocytes/100 WBC (Bld) 9.6 % Normal 4.0-14.0 [facility] Comment on above: Order Comment: Order Added by Bethany Expert. Performed By: #### 1 5451178, 9341413, 609377521, 2163498, 1183857 ####[address] [address] Monocytes/Leukocytes Auto (Bld) [Pure # fraction] 1.2 E9/L High 0.2-1.0 [facility] Comment on above: Order Comment: Order Added by Bethany Expert. Performed By: #### 1 5314738, 4984508, 372107439, 0181801, 8865170 ####[address] [place] [address] Neutrophils/100 WBC (Bld) 72.5 % Normal 36.0-75.0 [facility] Comment on above: Order Comment: Order Added by Bethany Expert. Performed By: #### 1 5656574, 1697682, 399449802, 6732964, 7435801 ####[facility] [address] [place] [address] Neutrophils/Leukocytes Auto (Bld) [Pure # fraction] 9.0 E9/L High 2.0-7.5 [facility] Comment on above: Order Comment: Order Added by Discern Expert. Performed By: #### 1 3656796, 5606939, 849639577, 5815793, 1463116 ####[address] [place] [address] CBC w/ Auto Diffon 3 Erythrocyte distribution width (RBC) [Ratio] 15.0 % High 10.9-14.2 [facility] Comment on above: Performed By: #### 1 7966439, 2966074, 882224015, 4122344, 6499432 ####[address] [place] [address] Hematocrit (Bld) [Volume fraction] 45.2 % Normal 37.7-49.0 [facility] Comment on above: Performed By: #### 1 5737496, 1873571, 048930903, 4568969, 8934624 ####[address] [place] [address] Hemoglobin (Bld) [Mass/Vol] 14.8 g/dL Normal 13.5-17.5 [facility] Comment on above: Performed By: #### 1 9145427, 5936656, 386454357, 0615639, 4278471 ####[facility] [address] [place] [address] MCH (RBC) [Entitic mass] 27.8 pg Normal 27.0-34.0 [facility] Comment on above: Performed By: #### 1 7728772, 3326931, 741386828, 3818021, 1967145 ####[address] [place] [address] MCHC (RBC) [Mass/Vol] 32.7 g/dL Normal 31.4-36.0 [facility] Comment on above: Performed By: #### 1 4037161, 5047349, 234823990, 2125755, 7889642 ####[address] [place] [address] MCV (RBC) [Entitic vol] 85.0 fL Normal 80.0-100.0 [facility] Comment on above: Performed By: #### 1 2093401, 6082201, 170104467, 5912638, 1066285 ####[address] [place] [address] Platelet mean volume (Bld) [Entitic vol] 9.4 fL Normal 6.4-10.8 [facility] Comment on above: Performed By: #### 1 2159643, 1680055, 287900237, 1361089, 1752162 ####[address] [address] Platelets (Bld) [#/Vol] 193.0 E9/L Normal 150.0-500.0 [facility] Comment on above: Performed By: #### 1 1928781, 1416691, 523557816, 2473228, 3925846 ####[address] [address] RBC (Bld) [#/Vol] 5.3 E12/L Normal 4.3-5.9 [facility] Comment on above: Performed By: #### 1 3854755, 9245999, 848047367, 3869486, 2416944 ####[address] [place] [address] WBC corrected for nucl RBC Auto (Bld) [#/Vol] 12.5 E9/L High 4.0-11.[address] [facility] Comment on above: Performed By: #### 1 2625777, 6456683, 774615715, 3310834, 0770464 ####[address] [place] [address] CMPon 12-13-2022 Albumin [Mass/Vol] 3.6 g/dL Normal 3.3-5.0 [facility] Comment on above: Performed By: #### 1 0341953, 5392505, 664936720, 3188681, 8251183 ####[facility] [address] [place] [address] Albumin/Globulin (S) [Mass conc ratio] 1.0 Low 1.1-2.2 [facility] Comment on above: Performed By: #### 1 7872598, 4074884, 977007960, 7927236, 5577476 ####[facility] [address] [place] [address] ALP [Catalytic activity/Vol] 49 Int._Unit/L Normal 21-98 [facility] Comment on above: Performed By: #### 1 4031228, 2923897, 146679265, 7964136, 7786145 ####[address] [place] [address] ALT No additional P-5'-P [Catalytic activity/Vol] 21 Int._Unit/L Normal 6-46 [facility] Comment on above: Performed By: #### 1 7366572, 4926535, 473311715, 2282034, 8436527 ####[facility] [address] [place] [address] Anion gap [Moles/Vol] 16 mmol/L Normal 6-16 [facility] Comment on above: Performed By: #### 1 3331094, 2752913, 673120566, 3261983, 0893296 ####[facility] [address] [place] [address] AST [Catalytic activity/Vol] 21 Int._Unit/L Normal 5-43 [facility] Comment on above: Performed By: #### 1 7327193, 5836219, 230144234, 9718698, 2959776 ####[facility] [address] [place] [address] Bilirubin [Mass/Vol] 0.6 mg/dL Normal 0.0-1.1 [facility] [place] [facility] Comment on above: Performed By: #### 1 3746312, 9994756, 166527680, 7840731, 7862592 ####[facility] [address] [place] [address] Calcium [Mass/Vol] 9.4 mg/dL Normal 8.9-11.1 [facility] Comment on above: Performed By: #### 1 4385415, 4084907, 633838191, 0321330, 3708102 ####[facility] [address] [place] [address] Chloride [Moles/Vol] 99 mmol/L Low 101-111 [facility] Comment on above: Performed By: #### 1 8477141, 6291160, 988570226, 8301845, 3785487 ####[facility] [address] [place] [address] CO2 [Moles/Vol] 31 mmol/L Normal 21-[address] [facility] Comment on above: Performed By: #### 1 1951678, 6160939, 811099586, 1991847, 2850718 ####[facility] [address] [place] [address] Creatinine [Mass/Vol] 1.5 mg/dL High 0.5-1.3 [facility] Comment on above: Performed By: #### 1 9427306, 1826796, 054436308, 3445342, 4917745 ####[facility] [address] [place] [address] Globulin (S) [Mass/Vol] 3.7 g/dL Normal 1.4-4.0 [facility] Comment on above: Performed By: #### 1 9195263, 4286733, 783879371, 5102265, 3333199 ####[facility] [address] [place] [address] Glucose [Mass/Vol] 128 mg/dL Normal 55-199 [facility] Comment on above: Result Comment: If t his glucose result represents a fasting glucose, interpretation should refer to the following reference range: 55-99 mg/dL Performed By: #### 1 1969080, 3442903, 012484551, 0192272, 3849735 ####[facility] [address] [place] [address] Potassium [Moles/Vol] 4.1 mmol/L Normal 3.5-5.3 [facility] Comment on above: Performed By: #### 1 3901548, 5747995, 954026770, 6113478, 9357507 ####[facility] [address] [place] [address] Protein [Mass/Vol] 7.3 g/dL Normal 6.0-7.8 [facility] Comment on above: Performed By: #### 1 4232297, 7837637, 224323836, 4322333, 5820934 ####[address] [place] [address] Sodium [Moles/Vol] 142 mmol/L Normal 135-145 [facility] Comment on above: Performed By: #### 1 8375081, 1618966, 332023095, 2110612, 2573002 ####[facility] [address] [place] [address] Urea nitrogen [Mass/Vol] 57 mg/dL High 5-21 [facility] Comment on above: Performed By: #### 1 0450829, 2627985, 612934180, 3509825, 2012952 ####[facility] [address] [place] [address] Urea nitrogen/Creatinine [Mass ratio] 38 No Units High 10-20 [facility] Comment on above: Performed By: #### 1 2322862, 6479221, 257066887, 4016733, 9500912 ####[facility] [address] [place] [address] Capillary Glucose POCon 07 Glucose [Mass/Vol] 256 mg/dL High 55-99 [facility] Comment on above: Result Comment: Yazmin bri Meter Performed By: #### 2 46559455 ####[facility] [address] [place] [address] Glucose [Mass/Vol] 152 mg/dL High 55[address] [place] [address] Comment on above: Result Comment: Yazmin bri Meter Performed By: #### 2 29929453 ####[facility] [address] [place] [address] PxgJ9gqc 12-13-2022 HbA1c (Bld) [Mass fraction] 6.5 % High <=5.9 [facility] Comment on above: Performed By: #### 1 5540147, 4283226, 358272442, 0079913, 8608889 ####[facility] [address] [place] [address] eGFRon 12-13-2022 GFR/1.73 sq M.predicted among non-blacks MDRD (S/P/Bld) [Vol rate/Area] 47 mL/min/1.73 m2 Low >=59 [facility] Comment on above: Order Comment: Order added by Discern Expert. Result Comment: Land Commissioner earnest kidney disease could be indicated at eGFR's of less than 60 mL/min/1.73m2. Kidney failure is indicated at less than 15 mL/min/1.73m2. Performed By: #### 1 3039437, 9906556, 104833858, 0084238, 9663909 ####[facility] [address] [place] [address] Capillary Glucose POCon 11-22 Glucose [Mass/Vol] 212 mg/dL High [address] [place] [address] Comment on above: Result Comment: Yazmin bri Meter Performed By: #### 2 81758531 ####[facility] [address] [place] [address] Glucose [Mass/Vol] 161 mg/dL [address] Comment on above: Result Comment: Yazmin bri Meter Performed By: #### 2 99153761 ####[facility] [address] [place] [address] Capillary Glucose POCon 11-22 Glucose [Mass/Vol] 206 mg/dL High [address] [place] [address] Comment on above: Result Comment: Yazmin bri Meter Performed By: #### 2 04859799 ####[facility] [address] [address] Glucose [Mass/Vol] 152 mg/dL [address] Comment on above: Result Comment: Yazmin bri Meter Performed By: #### 2 49164784 ####[facility] [address] [address] Capillary Glucose POCon 11-22 Glucose [Mass/Vol] 140 mg/dL [address] Comment on above: Result Comment: Yazmin bri Meter Performed By: #### 2 64916224 ####[facility] [address] [place] [address] Capillary Glucose POCon 11-21 Glucose [Mass/Vol] 243 mg/dL [address] Comment on above: Result Comment: Yazmin bri Meter Performed By: #### 2 85102934 ####[facility] [address] [address] Glucose [Mass/Vol] 157 mg/dL [address] Comment on above: Result Comment: Yazmin bri Meter Performed By: #### 2 42009711 ####[facility] [address] [address] Capillary Glucose POCon 11-21 Glucose [Mass/Vol] 181 mg/dL [address] Comment on above: Result Comment: Yazmin bri Meter Performed By: #### 2 06487942 ####[facility] [address] [place] [address] Capillary Glucose POCon 11-21 Glucose [Mass/Vol] 149 mg/dL [address] Comment on above: Result Comment: Yazmin bri Meter Performed By: #### 2 68310245 ####[facility] [address] [address] Glucose [Mass/Vol] 164 mg/dL High 55-99 [facility] Comment on above: Result Comment: Yazmin bri Meter Performed By: #### 2 73349656 ####[facility] [address] [place] [address] Capillary Glucose POCon 11-21 Glucose [Mass/Vol] 265 mg/dL High 55-99 [facility] Comment on above: Result Comment: Yazmin bri Meter Performed By: #### 2 58245395 ####[facility] [address] [place] [address] Glucose [Mass/Vol] 129 mg/dL High 55-99 [facility] Comment on above: Result Comment: Yazmin bri Meter Performed By: #### 2 38520757 ####[facility] [address] [place] [address] Family Medicine Office/Clini c Noteon 12-06-2022 Family Medicine Office/Clinic Note Normal [facility] Comment on above: Result Comment: Elec tronically Signed By: SHAISTA POTTS, Donta\.br\Date and Time Signed: 12/06/22 21:11 EDT Capillary Glucose POCon 11-21 Glucose [Mass/Vol] 196 mg/dL High 55-99 [facility] Comment on above: Result Comment: Yazmin bri Meter Performed By: #### 2 29761721 ####[facility] [address] [place] [address] Glucose [Mass/Vol] 159 mg/dL High 55-99 [facility] Comment on above: Result Comment: Yazmin bri Meter Performed By: #### 2 49348054 ####[facility] [address] [place] [address] Capillary Glucose POCon 11-21 Glucose [Mass/Vol] 195 mg/dL High 55-99 [facility] Comment on above: Result Comment: Gareth guerrero RN/ Performed By: #### 2 54308553 ####[facility] [address] [place] [address] Insurance Correspondence Off ice12-04-2022 Insurance Correspondence Office [id number]# 1.00CD:127 Normal [facility] Physician Orderon 12-03-2022 Physician Order [id number]# 1.00CD:127 Normal [facility] CHEMISTRYOrdered By: Lab ROP User on 12-02-2022 Glucose [Mass/Vol] 227 mg/dL High 55 - 99 mg/dL [facility] POC Subsection Comment on above: Result Comment: Gareth GARDINER POC Device SN [id number] Invalid Interpretation Code [facility] POC Subsection POC User ID [id number] Invalid Interpretation Code [facility] POC Subsection POC Username KINGSTON JAMISON Invalid Interpretation Code [facility] POC Subsection Glucose [Mass/Vol] 127 mg/dL High 55 - 99 mg/dL [facility] POC Subsection Comment on above: Result Comment: Gareth GARDINER POC Device SN [id number] Invalid Interpretation Code [facility] POC Subsection POC User ID [id number] Invalid Interpretation Code [facility] POC Subsection POC Username TOYIN REYNOLDS Invalid Interpretation Code [facility] POC Subsection Capillary Glucose POCon 11-21 Glucose [Mass/Vol] 227 mg/dL High 55-99 [facility] Comment on above: Result Comment: Gareth GARDINER Performed By: #### 2 [id number] ####[facility] [address] [place] [address] Glucose [Mass/Vol] 127 mg/dL High 55-99 [facility] Comment on above: Result Comment: Gareth GARDINER Performed By: #### 2 37210964 ####[facility] [address] [place] [address] Coding Queryon 12-02-2022 Coding Query Normal [facility] Discharge Note-Nursingon Discharge Note-Nursing Normal [facility] Inpatient Clinical Summaryon 12-02-2022 Inpatient Clinical Summary Normal [facility] Inpatient Patient Summaryon 12-02-2022 Inpatient Patient Summary Normal [facility] Insurance Correspondence Off iceon 12-02-2022 Insurance Correspondence Office [id number]#1. 00CD:127 Normal [facility] Interdisciplinary Note - Santosh e Manageron 12-02-2022 Interdisciplinary Note - Sports Writer Normal [facility] Comment on above: Result Comment: Elec tronically Signed By: Dank HAYDEN, Lisa\.br\Date and Time Signed: 12/02/22 09:31 EDT Monitor Recordon 12-02-2022 Monitor Record [id number]# 1.00CD:127 Normal [facility] Physician Orderon 12-02-2022 Physician Order [id number]# 1.00CD:127 Normal [facility] Progress Note-Physicianon Progress Note-Physician Normal [facility] Comment on above: Result Comment: Elec tronically Signed By: Adeline COLEMAN\.br\Date and Time Signed: 12/01/22 18:43 EDT\.br\Electronically Co-Signed By: Juan Hdz DO\.br\Date and Time Co-Signed: 12/02/22 07:20 EDT Transfer Documentson 023 Transfer Documents [id number]# 1.00CD:127 Normal [facility] BMPon 12-01-2022 Anion gap [Moles/Vol] 13 mmol/L Normal 6-16 [facility] Comment on above: Performed By: #### 1 2823909, 7705738, 3678710, 3095535 ####[facility] [address] [place] [address] Calcium [Mass/Vol] 9.1 mg/dL Normal 8.9-11.1 [facility] Comment on above: Performed By: #### 1 9922791, 7305218, 2018187, 1795373 ####[facility] [address] [place] [address] Chloride [Moles/Vol] 102 mmol/L Normal 101-111 [facility] [place] [facility] Comment on above: Performed By: #### 1 6541304, 9958201, 8376228, 3788968 ####[facility] [address] [place] [address] CO2 [Moles/Vol] 28 mmol/L Normal 21-[address] [facility] Comment on above: Performed By: #### 1 3812789, 6690944, 9013969, 5269870 ####[facility] [address] [place] [address] Creatinine [Mass/Vol] 1.3 mg/dL Normal 0.5-1.3 [facility] Comment on above: Performed By: #### 1 3892428, 6101560, 4534090, 8554880 ####[facility] [address] [place] [address] Glucose [Mass/Vol] 97 mg/dL Normal 55-199 [facility] Comment on above: Result Comment: If t his glucose result represents a fasting glucose, interpretation should refer to the following reference range: 55-99 mg/dL Performed By: #### 1 7335171, 3718898, 9333676, 5175441 ####[facility] [address] [facility] [place] [address] Potassium [Moles/Vol] 4.6 mmol/L Normal 3.5-5.3 [facility] Comment on above: Performed By: #### 1 2596527, 8190717, 5662384, 5361686 ####[facility] [address] [address] Sodium [Moles/Vol] 138 mmol/L Normal 135-145 [facility] Comment on above: Performed By: #### 1 4962506, 2208478, 9216760, 1298173 ####[facility] [address] [place] [address] Urea nitrogen [Mass/Vol] 24 mg/dL High 5-21 [facility] Comment on above: Performed By: #### 1 2278063, 3435483, 7772955, 6527389 ####[facility] [address] [facility] [place] [address] Urea nitrogen/Creatinine [Mass ratio] 18 No Units Normal 10-20 [facility] Comment on above: Performed By: #### 1 3643747, 5138662, 3516031, 3544181 ####[facility] [address] [place] [address] CHEMISTRYOrdered By: Lab ROP User on 12-01-2022 Glucose [Mass/Vol] 114 mg/dL High 55 - 99 mg/dL [facility] POC Subsection Comment on above: Result Comment: Graeth guerrero RN/ POC Device SN [id number] Invalid Interpretation Code [facility] POC Subsection POC User ID [id number] Invalid Interpretation Code [facility] POC Subsection POC Username MORGANCarolNETO Invalid Interpretation Code [facility] POC Subsection CHEMISTRYOrdered By: SYSTEM SYSTEM on 12-01-2022 Anion gap [Moles/Vol] 13 mmol/L Normal 6 - 16 mEq/L [facility] Remisol Calcium [Mass/Vol] 9.1 mg/dL Normal 8.9 - 11. 1 mg/dL FT Remisol Chloride [Moles/Vol] 102 mmol/L Normal 101 - 1 11 mmol/L FT Remisol CK [Catalytic activity/Vol] 211 [iU]/d Normal 14 - 261 Int._Unit/L [facility] Remisol CO2 [Moles/Vol] 28 mmol/L Normal 21 - 31 mmol/L [facility] Remisol Creatinine [Mass/Vol] 1.3 mg/dL Normal 0.5 - 1.3 mg/dL [facility] Remisol GFR/1.73 sq M.predicted among non-blacks MDRD (S/P/Bld) [Vol rate/Area] 56 mL/min/1.73 m2 Low >=59mL/min/ 1.73 m2 [facility] Chem S Glucose [Mass/Vol] 97 mg/dL Normal 55 - 199 mg/dL [facility] Magnesium [Mass/Vol] 2.1 mg/dL Normal 1.3 - 2 .4 mg/dL FT [facility] Potassium [Moles/Vol] 4.6 mmol/L Normal 3.5 - 5.3 mmol/L [facility] Sodium [Moles/Vol] 138 mmol/L Normal 135 - 145 mmol/L [facility] Remisol Urea nitrogen [Mass/Vol] 24 mg/dL High 5 - 21 mg/dL [facility] Remisol Urea nitrogen/Creatinine [Mass ratio] 18 mg/mg Normal 10 - 20 [facility] Remisol CKon 12-01-2022 CK [Catalytic activity/Vol] 211 Int._Unit/L Normal 14-261 [facility] Comment on above: Performed By: #### 1 9651018, 7190532, 9403147, 2040217 ####[facility] [address] [place] [address] Capillary Glucose POCon 11-21 Glucose [Mass/Vol] 114 mg/dL High 55-99 [facility] Comment on above: Result Comment: Gareth GARDINER Performed By: #### 2 [id number] ####[facility] [address] [place] [address] Glucose [Mass/Vol] 193 mg/dL High 55-99 [facility] Comment on above: Result Comment: Gareth GARDINER Performed By: #### 2 98053039 ####[facility] [address] [place] [address] Glucose [Mass/Vol] 203 mg/dL High 55-99 [facility] Comment on above: Result Comment: Gareth GARDINER Performed By: #### 2 66141406 ####[facility] [address] [place] [address] Glucose [Mass/Vol] 110 mg/dL High 55-99 [facility] Comment on above: Result Comment: Gareth GARDINER Performed By: #### 2 [id number] ####[facility] [address] [place] [address] Interdisciplinary Note - Santosh e Manageron 12-01-2022 Interdisciplinary Note - Sports Writer Pt is asleep in bed, no family present. Pt is accepted to [facility] side, pending precert at this time. Contact information provided and white board updated, CRM following Normal [facility] Comment on above: Result Comment: Elec tronically Signed By: Dank HAYDEN, Lisa\.candice\Date and Time Signed: 12/01/22 08:20 EDT Ionized Calciumon 12-01-2022 Calcium.ionized ISE [Mass/Vol] 4.8 mg/dL Invalid Interpretation Code 4.5-5.6 [facility] Comment on above: Result Comment: Perf ormed at: [facility] [address] [place], [place] [id number] PhD Michael Cortes Performed By: #### 2 535540, 3969178, 8531213, 05836808, 71279445, 1212143, 45308745, 2697584, 85590737, 155077437, 4505671, 6276893 ####[facility] [address] [place] [address] Magnesiumon 12-01-2022 Magnesium [Mass/Vol] 2.1 mg/dL Normal 1.3-2.4 [facility] [place] [facility] Comment on above: Performed By: #### 1 1054111, 0492336, 7542170, 9203933 ####[facility] [address] [place] [address] Progress Note-Physicianon Progress Note-Physician Normal [facility] Comment on above: Result Comment: Elec tronically Signed By: Pao POTTS, Lizeth\.br\Date and Time Signed: 12/01/22 12:41 EDT XR Abdomen 1 Viewon 12-02-19 23 XR Abdomen 1 View Normal [facility] eGFRon 12-01-2022 GFR/1.73 sq M.predicted among non-blacks MDRD (S/P/Bld) [Vol rate/Area] 56 mL/min/1.73 m2 Low >=59 [facility] Comment on above: Order Comment: Order added by Discern Expert. Result Comment: Land Commissioner earnest kidney disease could be indicated at eGFR's of less than 60 mL/min/1.73m2. Kidney failure is indicated at less than 15 mL/min/1.73m2. Performed By: #### 1 5559697, 4646994, 7454461, 9339608 ####[facility] [address] [place] [address] BMPon 11-30-2022 Anion gap [Moles/Vol] 11 mmol/L Normal 6-16 [facility] Comment on above: Performed By: #### 2 438557, 0802383, 89986987 ####[facility] [address] [place] [address] Calcium [Mass/Vol] 9.0 mg/dL Normal 8.9-11.1 [facility] Comment on above: Performed By: #### 2 111749, 8487191, 79491047 ####[facility] [address] [place] [address] Chloride [Moles/Vol] 102 mmol/L Normal 101-111 [facility] [place] [facility] Comment on above: Performed By: #### 2 534847, 4926745, 94576090 ####[facility] [address] [place] [address] CO2 [Moles/Vol] 31 mmol/L Normal 21-[address] [facility] Comment on above: Performed By: #### 2 092073, 3106679, 47602252 ####[facility] [address] [place] [address] Creatinine [Mass/Vol] 1.1 mg/dL Normal 0.5-1.3 [facility] Comment on above: Performed By: #### 2 464671, 4980294, 83181690 ####[facility] [address] [place] [address] Glucose [Mass/Vol] 114 mg/dL Normal 55-199 [facility] Comment on above: Result Comment: If t his glucose result represents a fasting glucose, interpretation should refer to the following reference range: 55-99 mg/dL Performed By: #### 2 019578, 4808765, 76476462 ####[facility] [address] [place] [address] Potassium [Moles/Vol] 3.4 mmol/L Low 3.5-5.3 [facility] Comment on above: Performed By: #### 2 527416, 9376984, 35525345 ####[facility] [address] [place] [address] Sodium [Moles/Vol] 141 mmol/L Normal 135-145 [facility] Comment on above: Performed By: #### 2 404748, 2590667, 80679928 ####[facility] [address] [place] [address] Urea nitrogen [Mass/Vol] 23 mg/dL High 5-21 [facility] Comment on above: Performed By: #### 2 818219, 1776124, 40828905 ####[facility] [address] [place] [address] Urea nitrogen/Creatinine [Mass ratio] 21 No Units High 10-20 [facility] Comment on above: Performed By: #### 2 107277, 6431425, 84415876 ####[facility] [address] [place] [address] CHEMISTRYOrdered By: SYSTEM SYSTEM on 11-30-2022 Anion gap [Moles/Vol] 11 mmol/L Normal 6 - 16 mEq/L [facility] Remisol Calcium [Mass/Vol] 9.0 mg/dL Normal 8.9 - 11. 1 mg/dL [facility] Chloride [Moles/Vol] 102 mmol/L Normal 101 - 1 11 mmol/L [facility] Remisol CO2 [Moles/Vol] 31 mmol/L Normal 21 - 31 mmol/L [facility] Remisol Creatinine [Mass/Vol] 1.1 mg/dL Normal 0.5 - 1.3 mg/dL [facility] Remisol GFR/1.73 sq M.predicted among non-blacks MDRD (S/P/Bld) [Vol rate/Area] 69 mL/min/1.73 m2 Normal >=59mL/min/ 1.73 m2 [facility] Chem S Glucose [Mass/Vol] 114 mg/dL Normal 55 - 199 mg/dL [facility] Magnesium [Mass/Vol] 1.8 mg/dL Normal 1.3 - 2 .4 mg/dL [facility] Potassium [Moles/Vol] 3.4 mmol/L Low 3.5 - 5.3 mmol/L [facility] Remisol Sodium [Moles/Vol] 141 mmol/L Normal 135 - 145 mmol/L [facility] Remisol Urea nitrogen [Mass/Vol] 23 mg/dL High 5 - 21 mg/dL [facility] Remisol Urea nitrogen/Creatinine [Mass ratio] 21 mg/mg High 10 - 20 [facility] Remisol Capillary Glucose POCon 11-21 Glucose [Mass/Vol] 194 mg/dL High 55-99 [facility] Comment on above: Result Comment: Gareth GARDINER Performed By: #### 2 [id number] ####[facility] [address] [place] [address] Glucose [Mass/Vol] 96 mg/dL Normal 55-99 [facility] Comment on above: Performed By: #### 2 13550184 ####[facility] [address] [place] [address] Glucose [Mass/Vol] 130 mg/dL High 55-99 [facility] Comment on above: Result Comment: Gareth GARDINER Performed By: #### 2 23044615 ####[facility] [address] [place] [address] Glucose [Mass/Vol] 113 mg/dL High 55-99 [facility] Comment on above: Result Comment: Gareth GARDINER Performed By: #### 2 25070416 ####[facility] [address] [place] [address] Echo Transthoracic Completeo n 11-30-2022 Echo Transthoracic Complete Normal [facility] Insurance Correspondence Off iceon 11-30-2022 Insurance Correspondence Office [id number]:127 Normal [facility] Interdisciplinary Note - Santosh e Manageron 11-30-2022 Interdisciplinary Note - Sports Writer Normal [facility] Comment on above: Result Comment: Elec tronically Signed By: Dank HAYDEN, Lisa\.candice\Date and Time Signed: 11/30/22 10:48 EDT Magnesiumon 11-30-2022 Magnesium [Mass/Vol] 1.8 mg/dL Normal 1.3-2.4 [facility] [place] [facility] Comment on above: Performed By: #### 2 674952, 1292162, 33461543 ####[facility] [address] [place] [address] Message from Medicareon 11-21 Message from Medicare [id number] .00CD:127 Normal [facility] Progress Note-Physicianon Progress Note-Physician Normal [facility] Comment on above: Result Comment: Elec tronically Signed By: Joanie Jiménez MD\.br\Date and Time Signed: 11/30/22 15:13 EDT Progress Note-Physician Normal [facility] Comment on above: Result Comment: Elec tronically Signed By: Lizeth Cedeno MD\.br\Date and Time Signed: 11/30/22 14:52 EDT UA With Cult Reflexon 2022 Bacteria LM Ql (Urine sed) TRACE Normal Trace [facility] Comment on above: Order Comment: Urina ry Catheter Insertion triggered Urinalysis With Culture Reflex order by discern. Performed By: #### 1 7878261 ####[facility] [address] [place] [address] Bilirubin Ql (U) Negative Normal Negative [facility] Comment on above: Order Comment: Urina ry Catheter Insertion triggered Urinalysis With Culture Reflex order by discern. Performed By: #### 1 7594387 ####[facility] [address] [place] [address] Clarity (U) CLEAR Normal Clear [facility] Comment on above: Order Comment: Urina ry Catheter Insertion triggered Urinalysis With Culture Reflex order by discern. Performed By: #### 1 4605178 ####[facility] [address] [place] [address] Color (U) YELLOW Normal Yellow [facility] Comment on above: Order Comment: Urina ry Catheter Insertion triggered Urinalysis With Culture Reflex order by discern. Performed By: #### 1 6888521 ####[facility] [address] [place] [address] Epithelial cells.squamous LM.HPF (Urine sed) [#/Area] 0-2 Normal 0-2 [facility] Comment on above: Order Comment: Urina ry Catheter Insertion triggered Urinalysis With Culture Reflex order by discern. Performed By: #### 1 6810563 ####[facility] [address] [place] [address] Glucose Test strip (U) [Mass/Vol] Negative Normal Negative [facility] Comment on above: Order Comment: Urina ry Catheter Insertion triggered Urinalysis With Culture Reflex order by discern. Performed By: #### 1 0998269 ####[facility] [address] [place] [address] Hemoglobin Ql (U) Negative Normal Negative [facility] Comment on above: Order Comment: Urina ry Catheter Insertion triggered Urinalysis With Culture Reflex order by discern. Performed By: #### 1 2986640 ####[facility] [address] [place] [address] Ketones (U) [Mass/Vol] Negative Normal Negative [facility] Comment on above: Order Comment: Urina ry Catheter Insertion triggered Urinalysis With Culture Reflex order by discern. Performed By: #### 1 7532371 ####[facility] [address] [place] [address] [place].plasma/[place].R BC (Bld) [Mass ratio] 0-3 Normal 0-3 [facility] Comment on above: Order Comment: Urina ry Catheter Insertion triggered Urinalysis With Culture Reflex order by discern. Performed By: #### 1 1038279 ####[facility] [address] [place] [address] Nitrite Ql (U) Negative Normal Negative [facility] Comment on above: Order Comment: Urina ry Catheter Insertion triggered Urinalysis With Culture Reflex order by discern. Performed By: #### 1 9121539 ####[facility] [address] [place] [address] pH (U) 6.0 [pH] Invalid Interpretation Code 5.0-9.0 [facility] Comment on above: Order Comment: Urina ry Catheter Insertion triggered Urinalysis With Culture Reflex order by discern. Performed By: #### 1 7812983 ####[address] [address] Protein (U) [Mass/Vol] Negative Normal Negative [facility] Comment on above: Order Comment: Urina ry Catheter Insertion triggered Urinalysis With Culture Reflex order by discern. Performed By: #### 1 8909208 ####[place] [address] Specific gravity (U) [Rel density] 1.010 Invalid Interpretation Code 1.005-1.030 [facility] Comment on above: Order Comment: Urina ry Catheter Insertion triggered Urinalysis With Culture Reflex order by discern. Performed By: #### 1 2976584 ####[place] [address] Type of Urine collection method Red Normal [facility] Comment on above: Order Comment: Urina ry Catheter Insertion triggered Urinalysis With Culture Reflex order by discern. Performed By: #### 1 5859659 ####[place] [address] Urobilinogen Qn (U) 0.2 {Lei'U}/dL Normal 0.0-1.0 [facility] Comment on above: Order Comment: Urina ry Catheter Insertion triggered Urinalysis With Culture Reflex order by discern. Performed By: #### 1 4695615 ####[place] [address]046357 WBC Auto Ql (U) Negative Normal Negative [facility] Comment on above: Order Comment: Urina ry Catheter Insertion triggered Urinalysis With Culture Reflex order by discern. Performed By: #### 1 9956948 ####[place] [address]046357 WBC casts LM.LPF (Urine sed) [#/Area] 0-3 Normal [facility] Comment on above: Order Comment: Urina ry Catheter Insertion triggered Urinalysis With Culture Reflex order by discern. Performed By: #### 1 0924668 ####[address] [place] [address] WBC LM.HPF (Urine sed) [#/Area] 0-5 Normal 0-5 [facility] Comment on above: Order Comment: Urina ry Catheter Insertion triggered Urinalysis With Culture Reflex order by discern. Performed By: #### 1 1759904 ####[facility] [address] [place] [address] URINALYSISOrdered By: Houston Castillo on 11-30-2022 Bacteria [...] AM) Normal Negative [facility] UA Auto SS [place].plasma/[place].R BC (Bld) [Mass ratio] 0-3 /HPF Normal [...] [facility] UA Auto SS Urobilinogen Qn (U) 0.5603186 {Lei'U}/dL Normal 0.0 - 1.0 EU/dL [facility] UA Auto SS WBC Auto Ql (U) Negative (11/30/22 11:00 AM) Normal Negative [facility] UA Auto SS WBC casts LM.LPF (Urine sed) [#/Area] 0-3 (11/30/22 11:00 AM) Normal [facility] UA Auto SS WBC LM.HPF (Urine sed) [#/Area] 0-5 /HPF Normal 0-5/HPF [facility] UA Auto SS eGFRon 11-30-2022 GFR/1.73 sq M.predicted among non-blacks MDRD (S/P/Bld) [Vol rate/Area] 69 mL/min/1.73 m2 Normal >=59 [facility] Comment on above: Order Comment: Order added by Discern Expert. Result Comment: Land Commissioner earnest kidney disease could be indicated at eGFR's of less than 60 mL/min/1.73m2. Kidney failure is indicated at less than 15 mL/min/1.73m2. Performed By: #### 2 742137, 4040713, 44667728 ####[facility] [address] [place] [address] Auto Diffon 11-29-2022 Basophils/100 WBC (Bld) 0.5 % Normal 0.0-2.0 [facility] Comment on above: Order Comment: Order Added by Discern Expert. Performed By: #### 2 285288, 3572031, 5536124, 74392283, 00325539, 0324768, 13569049, 5205883, 83584884, 312950529, 9867574, 6258861 ####[facility] [address] [place] [address] Basophils/Leukocytes Auto (Bld) [Pure # fraction] 0.0 E9/L Normal 0.0-0.2 [facility] Comment on above: Order Comment: Order Added by Discern Expert. Performed By: #### 2 959516, 6751997, 2618807, 28074902, 71918892, 7854038, 43745915, 2712942, 05775757, 695568293, 1377316, 0092431 ####[facility] [address] [place] [address] Eosinophils/100 WBC (Bld) 8.4 % High 0.0-8.0 [facility] Comment on above: Order Comment: Order Added by Discern Expert. Performed By: #### 2 231870, 4168582, 4774845, 88854348, 06718473, 3457484, 88936628, 4412959, 19368742, 886225607, 4067784, 6962286 ####[facility] [address] [place] [address] Eosinophils/Leukocytes Auto (Bld) [Pure # fraction] 0.6 E9/L High 0.0-0.5 [facility] Comment on above: Order Comment: Order Added by Discern Expert. Performed By: #### 2 284690, 6249505, 4126539, 80095515, 38638177, 6832376, 76019550, 6043392, 38454295, 853494399, 5228401, 1968956 ####[facility] [address] [place] [address] Lymphocytes/100 WBC (Bld) 15.8 % Normal 14.0-50.0 [facility] Comment on above: Order Comment: Order Added by Discern Expert. Performed By: #### 2 929174, 0168627, 8947293, 34994066, 31418216, 1910134, 52440494, 1974372, 46282579, 864699304, 6419335, 3228346 ####[facility] [address] [place] [address] Lymphocytes/Leukocytes Auto (Bld) [Pure # fraction] 1.2 E9/L Normal 1.0-4.0 [facility] Comment on above: Order Comment: Order Added by Discern Expert. Performed By: #### 2 539302, 0087482, 4683655, 92301890, 25117791, 0964968, 25533025, 4354533, 79365752, 206747433, 7872207, 2461762 ####[facility] [address] [place] [address] Monocytes/100 WBC (Bld) 8.4 % Normal 4.0-14.0 [facility] Comment on above: Order Comment: Order Added by Discern Expert. Performed By: #### 2 320102, 4771317, 2093753, 85372114, 62376882, 7555298, 93567828, 3183280, 32849212, 008726737, 0529498, 4189761 ####[facility] [address] [place] [address] Monocytes/Leukocytes Auto (Bld) [Pure # fraction] 0.6 E9/L Normal 0.2-1.0 [facility] Comment on above: Order Comment: Order Added by Discern Expert. Performed By: #### 2 976277, 8807345, 9787261, 98684463, 77858822, 4190468, 23260166, 3256739, 10887767, 720179982, 4534479, 1377819 ####[facility] [address] [place] [address] Neutrophils/100 WBC (Bld) 66.9 % Normal 36.0-75.0 [facility] Comment on above: Order Comment: Order Added by Discern Expert. Performed By: #### 2 801803, 5832288, 0130498, 87358933, 00666706, 7775870, 74946858, 7696392, 88349057, 632249040, 2128104, 3765212 ####[facility] [address] [place] [address] Neutrophils/Leukocytes Auto (Bld) [Pure # fraction] 5.0 E9/L Normal 2.0-7.5 [facility] Comment on above: Order Comment: Order Added by Discern Expert. Performed By: #### 2 027495, 9967184, 0799927, 16579143, 72738187, 5851391, 12997140, 8310344, 02313472, 366248985, 7734837, 9248532 ####[facility] [address] [place] [address] BMPon 11-29-2022 Anion gap [Moles/Vol] 13 mmol/L Normal 6-16 [facility] Comment on above: Performed By: #### 2 356075, 7247861, 3743611, 26379030, 02686293, 2120947, 73297976, 0970707, 09749164, 211895645, 3303951, 1402281 ####[facility] [address] [place] [address] Calcium [Mass/Vol] 9.1 mg/dL Normal 8.9-11.1 [facility] Comment on above: Performed By: #### 2 744220, 5601400, 0296019, 38666738, 52533257, 2596802, 49953822, 8793756, 60812397, 660154201, 2463641, 2353171 ####[facility] [address] [place] [address] Chloride [Moles/Vol] 102 mmol/L Normal 101-111 [facility] [place] [facility] Comment on above: Performed By: #### 2 246095, 8976181, 3282000, 90138480, 97526946, 1214617, 84665117, 0866438, 25985651, 051228980, 0401336, 4882090 ####[facility] [address] [place] [address] CO2 [Moles/Vol] 29 mmol/L Normal 21-[address] [facility] Comment on above: Performed By: #### 2 354779, 5530419, 3927180, 62378804, 08609466, 2726804, 84297480, 5882971, 33234863, 184527151, 5801827, 7241502 ####[facility] [address] [place] [address] Creatinine [Mass/Vol] 1.1 mg/dL Normal 0.5-1.3 [facility] Comment on above: Performed By: #### 2 560530, 9804211, 6822946, 12317927, 07610829, 7529059, 05385594, 4750642, 55884111, 520443803, 4769404, 9605131 ####[facility] [address] [place] [address] Glucose [Mass/Vol] 95 mg/dL Normal 55-199 [facility] Comment on above: Result Comment: If t his glucose result represents a fasting glucose, interpretation should refer to the following reference range: 55-99 mg/dL Performed By: #### 2 585969, 2112607, 2435198, 64615524, 01468707, 1273802, 30737964, 3046169, 21388832, 447084744, 2759918, 4633306 ####[facility] [address] [place] [address] Potassium [Moles/Vol] 3.9 mmol/L Normal 3.5-5.3 [facility] Comment on above: Performed By: #### 2 759993, 6875672, 6160991, 71376279, 01066281, 0178623, 34325777, 4060399, 08847329, 503047973, 2366509, 5436044 ####[facility] [address] [place] [address] Sodium [Moles/Vol] 140 mmol/L Normal 135-145 [facility] Comment on above: Performed By: #### 2 400959, 7953259, 3043878, 73967762, 12964791, 9041465, 49332388, 5858499, 19087863, 402613934, 8513219, 5238180 ####[facility] [address] [place] [address] Urea nitrogen [Mass/Vol] 16 mg/dL Normal 5-21 [facility] Comment on above: Performed By: #### 2 068279, 1236175, 6542870, 73774404, 25943210, 5187979, 03924338, 5628607, 65583491, 018255039, 7886688, 0221525 ####[facility] [address] [place] [address] Urea nitrogen/Creatinine [Mass ratio] 14 No Units Normal 10-20 [facility] Comment on above: Performed By: #### 2 394580, 7514519, 0956902, 06336207, 03558602, 6653563, 23690771, 6154242, 36257240, 931748968, 1921640, 2090185 ####[facility] [address] [place] [address] BNPon 11-29-2022 Natriuretic peptide B (Bld) [Mass/Vol] 855 pg/mL High 5-80 [facility] Comment on above: Performed By: #### 2 729524, 0867863, 1827306, 12917091, 34706646, 5904114, 93265056, 3659759, 92577037, 049846871, 6138368, 1158064 ####[facility] [address] [place] [address] CBC w/ Auto Diffon 3 Erythrocyte distribution width (RBC) [Ratio] 14.9 % High 10.9-14.2 [facility] Comment on above: Performed By: #### 2 917305, 6230469, 8582919, 39570736, 81091118, 5858526, 56056616, 9693473, 55607307, 426407558, 9109889, 0495544 ####[facility] [address] [place] [address] Hematocrit (Bld) [Volume fraction] 38.1 % Normal 37.7-49.0 [facility] Comment on above: Performed By: #### 2 779083, 1569605, 9085029, 25605632, 81595855, 4442149, 09692713, 5208220, 74751068, 223935672, 3020756, 6916990 ####[facility] [address] [place] [address] Hemoglobin (Bld) [Mass/Vol] 12.8 g/dL Low 13.5-17.5 [facility] Comment on above: Performed By: #### 2 581147, 6128643, 6656853, 94111326, 77723196, 3031038, 25755374, 4431435, 79064155, 965669179, 4531567, 9930713 ####[facility] [address] [place] [address] MCH (RBC) [Entitic mass] 29.0 pg Normal 27.0-34.0 [facility] Comment on above: Performed By: #### 2 900788, 2882098, 8807405, 87746686, 20060323, 0430813, 74699947, 8319979, 63001930, 644787031, 3277080, 4046189 ####[facility] [address] [place], [place] [address] MCHC (RBC) [Mass/Vol] 33.7 g/dL Normal 31.4-36.0 [facility] Comment on above: Performed By: #### 2 109310, 7667789, 2086371, 84987102, 07185368, 9422116, 44920545, 8558803, 12727834, 510021003, 4582354, 2228344 ####[facility] [address] [place] [address] MCV (RBC) [Entitic vol] 86.1 fL Normal 80.0-100.0 [facility] Comment on above: Performed By: #### 2 078692, 9349437, 2247879, 73302210, 79305993, 2339118, 98638603, 9465812, 69700126, 693953006, 7485177, 1152140 ####[facility] [address] [place] [address] Platelet mean volume (Bld) [Entitic vol] 10.9 fL High 6.4-10.8 [facility] Comment on above: Performed By: #### 2 500875, 9728177, 5734495, 60715000, 19318967, 2211595, 54303570, 4305020, 59984693, 938031277, 2043723, 0346174 ####[facility] [address] [place] [address] Platelets (Bld) [#/Vol] 189.0 E9/L Normal 150.0-500.0 [facility] Comment on above: Performed By: #### 2 031241, 2478395, 6887550, 64112639, 38272889, 2578396, 73112409, 0031509, 38122371, 147948270, 2358659, 4708899 ####[place] [address] [place] [address] RBC (Bld) [#/Vol] 4.4 E12/L Normal 4.3-5.9 [facility] Comment on above: Performed By: #### 2 917330, 6749815, 6092694, 23513965, 64314615, 2625883, 77999949, 4121882, 74995760, 756786158, 8389724, 7241197 ####[facility] [address] [place] [address] WBC corrected for nucl RBC Auto (Bld) [#/Vol] 7.4 E9/L Normal 4.0-11.[address] [facility] Comment on above: Performed By: #### 2 283194, 0467394, 1413151, 40438705, 09985186, 4014401, 51454139, 4124704, 11794511, 262244497, 5181924, 1755235 ####[facility] [facility] [address] [place] [address] CHEMISTRYOrdered By: SYSTEM SYSTEM on 11-29-2022 Albumin [...] 69 mL/min/1.73 m2 Normal >=59mL/min/ 1.73 m2 [facility] Chem S Globulin (S) [Mass/Vol] 3.1 g/dL [...] 37.00 pg/mL Normal 15.90 - 38.40 pg/mL [facility] Remisol CHEMISTRYOrdered By: Natalie Soto on 11-29-2022 Natriuretic peptide B (Bld) [Mass/Vol] 855 pg/mL High 5 - 80 pg/mL [facility] HemeManSS CHEMISTRYOrdered By: Marian peterson DomainUser on 11-29-2022 Calcium.ionized ISE [Mass/Vol] 4.8 mg/dL Invalid Interpretation Code 4.5-5.6mg/d L [facility] SendOutsSS Comment on above: Result Comment: Perf ormed at: CB [facility] [address] [place], [place] [id number] PhD Michael Cortes CKon 11-29-2022 CK [Catalytic activity/Vol] 1096 Int._Unit/L Abnormal 14-261 [facility] Comment on above: Result Comment: Crit ical Result verified by repeat analysis\Critical Result S_CK:1096 Called to MANAS BARBA AT by AMY JOHNSON and read back for confirmation at 11/29/2022 06:40:15 Performed By: #### 2 972136, 1074089, 1365810, 69873108, 31505359, 3143160, 24877671, 0722663, 26077802, 269099562, 6059907, 2014931 ####[facility] [address] [place] [address] CT Abdomen/Pelvis w/ Contras ton 11-29-2022 CT Abdomen/Pelvis w/ Contrast Normal [facility] CT Head or Brain w/o Contras ton 11-29-2022 CT Head or Brain w/o Contrast Normal [facility] CTA Cheston 11-29-2022 CTA Chest Normal [facility] Capillary Glucose POCon Glucose [Mass/Vol] 122 mg/dL High 55-99 [facility] Comment on above: Result Comment: Gareth GARDINER Performed By: #### 2 [id number] ####[facility] [address] [place] [address] Glucose [Mass/Vol] 174 mg/dL High 55-99 [facility] Comment on above: Performed By: #### 2 [id number] ####[facility] [address] [place] [address] Glucose [Mass/Vol] 107 mg/dL High 55-99 [facility] Comment on above: Result Comment: Gareth GARDINER Performed By: #### 2 [id number] ####[facility] [address]N[place] [address] Consultation Noteon 11-30-19 Consultation Note Normal [facility] Comment on above: Result Comment: Elec tronically Signed By: Marcus POTTS, [place]\Date and Time Signed: 11/29/22 14:44 EDT ED Clinical Summaryon 2022 ED Clinical Summary Normal [facility] ED Note-Physicianon 11-30-19 ED Note-Physician Normal [facility] Comment on above: Result Comment: Elec tronically Signed By: Coretta STEIN, Elkin Prajapati\.candice\Date and Time Signed: 11/28/22 22:32 EDT ED Patient Education Noteon 11-29-2022 ED Patient Education Note Normal [facility] ED Patient Summaryon 023 ED Patient Summary Normal [facility] HEMATOLOGYOrdered By: SYSTEM SYSTEM on [...] 4.4 E12/L Normal 4.3 - 5.9 E12/L [facility] HemeAutoSS Sed Rate Automated 17 mm/h Normal 0 - 19 mm/hr FT HemeAutoSS WBC corrected for nucl RBC Auto (Bld) [#/Vol] 7.4 E9/L Normal 4.0 - 11.0 E9/L [facility] HemeAutoSS Hep Func Panelon 11-29-2022 Albumin [Mass/Vol] 3.6 g/dL Normal 3.3-5.0 [facility] Comment on above: Performed By: #### 2 028993, 3184756, 3252082, 84456044, 94858255, 4018758, 98100856, 2521461, 51737554, 526979400, 8737670, 7599066 ####[facility] [address] [place] [address] Albumin/Globulin (S) [Mass conc ratio] 1.2 Normal 1.1-2.2 [facility] Comment on above: Performed By: #### 2 050784, 9918367, 7542112, 47093709, 41735086, 8279429, 18092419, 4690927, 03214955, 883137385, 4571588, 0779181 ####[facility] [address] [place] [address] ALP [Catalytic activity/Vol] 40 Int._Unit/L Normal 21-98 [facility] Comment on above: Performed By: #### 2 058564, 0411165, 3289675, 19452315, 11793289, 1767695, 95450931, 5095329, 72878395, 068365443, 6296727, 4250017 ####[facility] [address] [place] [address] ALT No additional P-5'-P [Catalytic activity/Vol] 17 Int._Unit/L Normal 6-46 [facility] Comment on above: Performed By: #### 2 381132, 6061944, 1888570, 96301170, 77056371, 8632523, 69656343, 6002847, 75319941, 609189246, 8563416, 9049048 ####[facility] [address] [place] [address] AST [Catalytic activity/Vol] 33 Int._Unit/L Normal 5-43 [facility] Comment on above: Performed By: #### 2 851139, 7973521, 9642897, 55219790, 26314251, 2690554, 04000143, 5686505, 62106031, 059578306, 8264943, 4969673 ####[facility] [address] [place] [address] Bilirubin [Mass/Vol] 1.1 mg/dL Normal 0.0-1.1 [facility] [place] [facility] Comment on above: Performed By: #### 2 525155, 1220016, 1756161, 52632437, 69769421, 3217374, 38470274, 7991291, 94394334, 556708094, 8268601, 7230065 ####[facility] [address] [place] [address] Bilirubin.direct [Mass/Vol] 0.2 mg/dL Normal 0.1-0.4 [facility] Comment on above: Performed By: #### 2 617988, 1722354, 6454451, 61062528, 19195163, 1320699, 30483629, 1823744, 90061603, 641561623, 3919310, 3471122 ####[facility] [address] [place] [address] Bilirubin.indirect [Mass or moles/Vol] 0.9 mg/dL Normal 0.1-0.9 [facility] Comment on above: Performed By: #### 2 366052, 1501847, 9902990, 15448760, 67101897, 9598356, 70123081, 6459336, 31130410, 052756256, 2676749, 6986249 ####[facility] [address] [place] [address] Globulin (S) [Mass/Vol] 3.1 g/dL Normal 1.4-4.0 [facility] Comment on above: Performed By: #### 2 659495, 4955924, 9638055, 48708757, 09260494, 9106899, 69904694, 2693154, 22410829, 432572578, 7964757, 1810347 ####[facility] [address] [place] [address] Protein [Mass/Vol] 6.7 g/dL Normal 6.0-7.8 [facility] Comment on above: Performed By: #### 2 008943, 1541566, 4399454, 38092553, 58824016, 5034844, 84474925, 2373721, 40305325, 634961624, 9550353, 1627178 ####[facility] [address] [place] [address] Interdisciplinary Note - Santosh e Manageron 11-29-2022 Interdisciplinary Note - Sports Writer Normal [facility] Comment on above: Result Comment: Elec tronically Signed By: Jose HAYDEN, Norma\.br\Date and Time Signed: 11/29/22 15:07 EDT Lipid Panelon 11-29-2022 Cholesterol [Mass/Vol] 114 mg/dL Low 120-200 [facility] Comment on above: Performed By: #### 2 315480, 3827404, 7700837, 63163783, 75580973, 4449032, 29216034, 3985316, 55271820, 276721583, 7192545, 6757272 ####[facility] [address] [place] [address] Cholesterol in HDL [Mass/Vol] 50 mg/dL Invalid Interpretation Code [facility] Comment on above: Result Comment: HDL > or equal to 60 mg/dL: Low cardiovascular riskHDL < 40 mg/dL : High cardiovascular risk Performed By: #### 2 574232, 5347580, 2109837, 71428314, 16858911, 9731736, 15725039, 3007391, 31745489, 294378177, 9682336, 7254168 ####[facility] [address] [place] [address] Cholesterol in LDL [Mass/Vol] 43 mg/dL Normal <=129 [facility] Comment on above: Performed By: #### 2 246110, 1205406, 4588347, 98587940, 89222793, 3637201, 82411425, 8806821, 74752477, 630806161, 4237080, 8544518 ####[facility] [address] [place] [address] Cholesterol in VLDL [Mass/Vol] 14 mg/dL Normal 7-40 [facility] Comment on above: Performed By: #### 2 857279, 1200256, 0064628, 86477718, 50269934, 5704571, 89464553, 6533938, 75123456, 933524046, 6248534, 5963929 ####[facility] [address] [place] [address] Triglyceride [Mass/Vol] 72 mg/dL Normal <=149 [facility] Comment on above: Performed By: #### 2 291007, 1599110, 8104227, 39861299, 75709099, 5477211, 78689344, 9577715, 82996751, 859564399, 8013560, 1514230 ####[facility] [address] [place] [address] Monitor Recordon 11-29-2022 Monitor Record [id number]# 1.00CD:127 Normal [facility] Monitor Record [id number] 7 [id number]# 1.00CD:127 Normal [facility] Monitor Record [id number] 7 [id number]# 1.00CD:127 Normal [facility] Monitor Record [id number] 7 [id number]# 1.00CD:127 Normal [facility] Monitor Record [id number] 7 [id number]# 1.00CD:127 Normal [facility] Monitor Record [id number] 7 [id number]# 1.00CD:127 Normal [facility] Monitor Record [id number] 7 [id number]# 1.00CD:127 Normal [facility] Monitor Record [id number] 7 [id number]# 1.00CD:127 Normal [facility] Progress Note-Physicianon Progress Note-Physician Normal [facility] Comment on above: Result Comment: Elec tronically Signed By: Alex STEIN, [place].br\Date and Time Signed: 11/29/22 10:54 EDT RAD - Preliminary Cat Scan R eporton 11-29-2022 RAD - Preliminary Cat Scan Report [id number] #1.00CD:127 Normal [facility] Sed Rate Automatedon 023 Sed Rate Automated 17 mm/hr Normal 0-19 [facility] Comment on above: Performed By: #### 2 648736, 4513818, 4978907, 70973269, 34661214, 1867168, 17173866, 6154020, 49095701, 157849281, 0709380, 5480333 ####[facility] [address] [place] [address] TSH With T4fr Reflexon 11-29 TSH Qn 3.43 m[IU]/L Normal 0.34-5.60 [facility] Comment on above: Performed By: #### 2 786977, 1378782, 9527020, 58964988, 10350315, 4934721, 98539877, 3840019, 11180871, 000676082, 1141503, 9613169 ####[facility] [address] [place] [address] Troponin 6 Hr.on 11-29-2022 Troponin I.cardiac [Mass/Vol] 32.60 pg/mL Normal 15.90-38.40 [facility] Comment on above: Result Comment: The 95% CI (Confidence Interval) PPV (Positive Predictive Value) for myocardial infarction in females is 38 pg/mL, in males 51 pg/mL. The results should be used in conjunction with clinical conditions of myocardial infarction.(Access High Sensitivity Troponin I Instructions For Use, [place], December 2017) Performed By: #### 1 1841798 ####[facility] [address] [place] [address] Troponin 9 Hr.on 11-29-2022 Troponin I.cardiac [Mass/Vol] 37.00 pg/mL Normal 15.90-38.40 [facility] Comment on above: Result Comment: The 95% CI (Confidence Interval) PPV (Positive Predictive Value) for myocardial infarction in females is 38 pg/mL, in males 51 pg/mL. The results should be used in conjunction with clinical conditions of myocardial infarction.(Access High Sensitivity Troponin I Instructions For Use, [place], December 2017) Performed By: #### 1 2962606 ####[facility] [address] [place] [address] Vitamin D 25 Hydroxyon 11-29 25-hydroxyvitamin D3 [Mass/Vol] ng/mL Low 30.0-100.0 [facility] Comment on above: Result Comment: Vit palacios D deficiency has been defined as a level of serum 25-OH vitamin D less than 20 ng/mL (1,2) by the Trade of Medicine and an Endocrine Society practice guideline. The Endocrine Society further defined vitamin D insufficiency as a level between 21 and 29 ng/mL (2). 1. IOM (Trade of Medicine). 2010. Dietary reference intakes for calcium and D. [place]: The National Academies Press. 2. Patricia MF, [place], Reji PETERS, et al. Evaluation, treatment, and prevention of vitamin D deficiency: an Endocrine Society clinical practice guideline. JCEM. 2010; 96 (7):1911-30. Performed By: #### 2 934895, 3131215, 5427720, 29480540, 23495224, 9366578, 65108833, 7562347, 63727520, 036530855, 3712383, 7357235 ####[facility] [address] [place] [address] eGFRon 11-29-2022 GFR/1.73 sq M.predicted among non-blacks MDRD (S/P/Bld) [Vol rate/Area] 69 mL/min/1.73 m2 Normal >=59 [facility] Comment on above: Order Comment: Order added by Discern Expert. Result Comment: Land Commissioner earnest kidney disease could be indicated at eGFR's of less than 60 mL/min/1.73m2. Kidney failure is indicated at less than 15 mL/min/1.73m2. Performed By: #### 2 398565, 7599763, 6964536, 04271163, 27792325, 8867072, 84412012, 8621808, 37110980, 316236780, 0166657, 5821265 ####[facility] [address] [place] [address] Auto Diffon 11-28-2022 Basophils/100 WBC (Bld) 0.7 % Normal 0.0-2.0 [facility] Comment on above: Order Comment: Order Added by Discern Expert. Performed By: #### 1 6452250, 7934910, 6657681, 3145322, 05158521 ####[address] [place] [address] Basophils/Leukocytes Auto (Bld) [Pure # fraction] 0.0 E9/L Normal 0.0-0.2 [facility] Comment on above: Order Comment: Order Added by Discern Expert. Performed By: #### 1 0139038, 7632017, 8246779, 7745452, 88124563 ####[address] [address] Eosinophils/100 WBC (Bld) 7.4 % Normal 0.0-8.0 [facility] Comment on above: Order Comment: Order Added by Discern Expert. Performed By: #### 1 8563280, 9799095, 7428089, 8774108, 78376304 ####[address] [address] Eosinophils/Leukocytes Auto (Bld) [Pure # fraction] 0.5 E9/L Normal 0.0-0.5 [facility] Comment on above: Order Comment: Order Added by Discern Expert. Performed By: #### 1 0288031, 1214058, 1975603, 8662405, 71728591 ####[address] [address] Lymphocytes/100 WBC (Bld) 9.3 % Low 14.0-50.0 [facility] Comment on above: Order Comment: Order Added by Bethany Expert. Performed By: #### 1 1052902, 3132076, 5913893, 6154201, 49184584 ####[address] [address] Lymphocytes/Leukocytes Auto (Bld) [Pure # fraction] 0.7 E9/L Low 1.0-4.0 [facility] Comment on above: Order Comment: Order Added by Bethany Expert. Performed By: #### 1 8033978, 9600623, 5162848, 8305336, 72801150 ####[address] [address] Monocytes/100 WBC (Bld) 6.6 % Normal 4.0-14.0 [facility] Comment on above: Order Comment: Order Added by Discern Expert. Performed By: #### 1 4461310, 3646638, 3537242, 8265558, 81236410 ####[facility] [address] [place] [address] Monocytes/Leukocytes Auto (Bld) [Pure # fraction] 0.5 E9/L Normal 0.2-1.0 [facility] Comment on above: Order Comment: Order Added by Discern Expert. Performed By: #### 1 4239866, 5429301, 7047689, 5186520, 96067058 ####[address] [place] [address] Neutrophils/100 WBC (Bld) 76.0 % High 36.0-75.0 [facility] Comment on above: Order Comment: Order Added by Bethany Expert. Performed By: #### 1 0637871, 6290519, 1661079, 3100100, 87729901 ####[facility] [address] [place] [address] Neutrophils/Leukocytes Auto (Bld) [Pure # fraction] 5.4 E9/L Normal 2.0-7.5 [facility] Comment on above: Order Comment: Order Added by Discern Expert. Performed By: #### 1 5283727, 3104957, 4476909, 1898214, 81943243 ####[facility] [address] [place] [address] BMPon 11-28-2022 Creatinine [Mass/Vol] 1.0 mg/dL Normal 0.5-1.3 [facility] Comment on above: Performed By: #### 1 9494347, 6253343, 2736738, 3806927, 72080800 ####[address] [place] [address] Urea nitrogen [Mass/Vol] 16 mg/dL Normal 5-21 [facility] Comment on above: Performed By: #### 1 4876082, 9244772, 0673086, 5929904, 05819217 ####[facility] [address] [address] Urea nitrogen/Creatinine [Mass ratio] 16 No Units Normal 10-20 [facility] Comment on above: Performed By: #### 1 5602200, 4339230, 4137320, 7749152, 86512523 ####[facility] [address] [place] [address] Anion gap [Moles/Vol] 10 mmol/L Normal 6-16 [facility] Comment on above: Performed By: #### 1 1735909, 1963102, 6846369, 4698890, 49372452 ####[facility] [address] [place] [address] Calcium [Mass/Vol] 8.8 mg/dL Low 8.9-11.1 [facility] Comment on above: Performed By: #### 1 4067996, 9618649, 8640657, 2458092, 28845170 ####[facility] [address] [place] [address] Chloride [Moles/Vol] 105 mmol/L Normal 101-111 [facility] [place] [facility] Comment on above: Performed By: #### 1 2190009, 0648351, 9494500, 5912314, 16020722 ####[facility] [address] [place] [address] CO2 [Moles/Vol] 28 mmol/L Normal 21-[address] [facility] Comment on above: Performed By: #### 1 5902549, 6664101, 2386797, 5785030, 60368843 ####[facility] [address] [place] [address] Glucose [Mass/Vol] 114 mg/dL Normal 55-199 [facility] Comment on above: Result Comment: If t his glucose result represents a fasting glucose, interpretation should refer to the following reference range: 55-99 mg/dL Performed By: #### 1 8635181, 8810770, 4111911, 9777947, 78453172 ####[facility] [address]N[place]en[place] [address] Potassium [Moles/Vol] 4.1 mmol/L Normal 3.5-5.3 [facility] Comment on above: Performed By: #### 1 8855866, 3495616, 7061578, 5364254, 36353640 ####[facility] [address] [place] [address] Sodium [Moles/Vol] 139 mmol/L Normal 135-145 [facility] Comment on above: Performed By: #### 1 2704998, 4730999, 5823867, 3629655, 57254155 ####[facility] [address] [place] [address] Blood Gas Art, with Lytes, G christal, [place] 11-28-2022 a/A Ratio Art 53.40 % Normal >=0.80 [facility] Comment on above: Performed By: #### 4 65103685 ####[facility] [address] [place] [address] AaDO2 Art 64.9 mmHg High 5.0-15.0 [facility] Comment on above: Performed By: #### 4 07530876 ####[facility] [address] [place] [address] Allens Test Positive Normal [facility] Comment on above: Performed By: #### 4 48390489 ####[facility] [address] [place] [address] Base Excess Arterial 2.9 mmol/L Normal >=2.8 [facility] Comment on above: Performed By: #### 4 72280840 ####[facility] [address] [place] [address] cCa2+ Art 4.88 mg/dL Normal 4.40-5.30 [facility] Comment on above: Performed By: #### 4 25277701 ####[facility] [address] [place] [address] cCl- Art 103.0 mmol/L Normal 101.0-111.0 [facility] Comment on above: Performed By: #### 4 37347300 ####[facility] [address] [place] [address] cGlu Art 98 mg/dL Normal 55-99 [facility] Comment on above: Performed By: #### 4 22966974 ####[facility] [address] [place] [address] cK+ Art 3.6 mmol/L Normal 3.5-5.3 [facility] Comment on above: Performed By: #### 4 63342876 ####[address] [place] [address] cLac Art .6 mmol/L Normal .5-2.2 [facility] Comment on above: Performed By: #### 4 39635707 ####[address] [place] [address] parachute packer+ Art 139.0 mmol/L Normal 135.0-145.0 [facility] Comment on above: Performed By: #### 4 27192257 ####[address] [place] [address] Drawn by nmb Invalid Interpretation Code [facility] Comment on above: Performed By: #### 4 57764244 ####[address] [place] [address] FCOHb Art 1.5 % Normal 1.5-4.9 [facility] Comment on above: Result Comment: Refe rence rangeNonsmoker <1.5%Smoker <5.0%Heavy Smoker <9.0% Performed By: #### 4 81018906 ####[facility] [address] [place] [address] FIO2 BG 28 Invalid Interpretation Code [facility] Comment on above: Performed By: #### 4 09702957 ####[facility] [address] [place] [address] Flow 2 Invalid Interpretation Code [facility] Comment on above: Performed By: #### 4 41817468 ####[facility] [address] [place] [address] FMetHb Art 0.3 % Normal 0.0-1.9 [facility] Comment on above: Performed By: #### 4 79455647 ####[address] [address] FO2Hb Art 93.7 % Normal 93.0-100.0 [facility] Comment on above: Performed By: #### 4 24742072 ####[address] [address] HCO3 (Bld) [Moles/Vol] 26.9 mmol/L High 22.0-26.0 [facility] Comment on above: Performed By: #### 4 49495410 ####[address] [address] Hemoglobin (Bld) [Mass/Vol] 11.9 g/dL Low 12.0-17.0 [facility] Comment on above: Performed By: #### 4 24698805 ####[address] [address] Oxygen saturation in Blood 95.4 % Normal 95.0-100.0 [facility] Comment on above: Performed By: #### 4 14254944 ####[address] [address] P CO2 Arterial 47.6 mmHg High 35.0-45.0 [facility] Comment on above: Performed By: #### 4 98534129 ####[address] [address] P O2 Arterial 74.3 mmHg Low 80.0-100.0 [facility] Comment on above: Performed By: #### 4 07350706 ####[address] [place] [address] pH Arterial 7.387 Normal 7.350-7.450 [facility] Comment on above: Performed By: #### 4 04062206 ####[address] [address] Sample Site R Radial Normal [facility] Comment on above: Performed By: #### 4 01903023 ####[facility] [address] [place] [address] Sample Type Arterial Draw Normal [facility] Comment on above: Performed By: #### 4 36570175 ####[facility] [address] [place] [address] CBC w/ Auto Diffon 3 Erythrocyte distribution width (RBC) [Ratio] 14.8 % High 10.9-14.2 [facility] Comment on above: Performed By: #### 1 6081814, 9578870, 9484316, 4367824, 24577812 ####[address] [place] [address] Hematocrit (Bld) [Volume fraction] 37.3 % Low 37.7-49.0 [facility] Comment on above: Performed By: #### 1 2408792, 5417340, 1005791, 7820512, 79613232 ####[facility] [address] [place] [address] Hemoglobin (Bld) [Mass/Vol] 12.3 g/dL Low 13.5-17.5 [facility] Comment on above: Performed By: #### 1 7540059, 6246868, 9208200, 1449745, 70375017 ####[facility] [address] [place] [address] MCH (RBC) [Entitic mass] 28.3 pg Normal 27.0-34.0 [facility] Comment on above: Performed By: #### 1 5265698, 0363482, 4253093, 3518800, 29352213 ####[facility] [address] [place] [address] MCHC (RBC) [Mass/Vol] 33.0 g/dL Normal 31.4-36.0 [facility] [facility] Comment on above: Performed By: #### 1 [id number], 8076561, 3652668, 8029837, 71510719 ####[facility] [address] [place] [address] MCV (RBC) [Entitic vol] 85.9 fL Normal 80.0-100.0 [facility] Comment on above: Performed By: #### 1 5896892, 3873567, 7509865, 5678225, 33270915 ####[address] [place] [address] Platelet mean volume (Bld) [Entitic vol] 10.4 fL Normal 6.4-10.8 [facility] Comment on above: Performed By: #### 1 0492516, 0502866, 8155147, 6752757, 46935979 ####[address] [address] Platelets (Bld) [#/Vol] 189.0 E9/L Normal 150.0-500.0 [facility] Comment on above: Performed By: #### 1 1974379, 5002522, 9429831, 8584019, 33946571 ####[address] [address] RBC (Bld) [#/Vol] 4.3 E12/L Normal 4.3-5.9 [facility] Comment on above: Performed By: #### 1 0553203, 9336268, 3905045, 3114291, 62402522 ####[address] [address] WBC corrected for nucl RBC Auto (Bld) [#/Vol] 7.1 E9/L Normal 4.0-11.[address] [facility] Comment on above: Performed By: #### 1 8325551, 5850104, 3132019, 5287231, 31353324 ####[address] [address] CHEMISTRYOrdered By: SYSTEM SYSTEM on 11-28-2022 Troponin I.cardiac [Mass/Vol] 32.60 pg/mL Normal 15.90 - 38.40 pg/mL [facility] Remuab medical westl Troponin I.cardiac [Mass/Vol] 26.90 pg/mL Normal 15.90 - 38.40 pg/mL [facility] Remisol Consent for Treatmenton Consent for Treatment [id number]#1 .00CD:127 Normal [facility] ED Note-Physicianon 11-29-19 ED Note-Physician Normal [facility] Comment on above: Result Comment: [...] - 2.2 mmol/L FT Resp Auto SS parachute packer+ Art 139.0 mmol/L Normal 135.0 - 145.0 [...] 26.9 mmol/L High 22.0 - 26.0 mmol/L [facility] Resp Auto SS Hemoglobin (Bld) [Mass/Vol] 11.9 g/dL Low 12.0 - 17.0 gm/dL [facility] Resp Auto SS P CO2 Arterial 47.6 mm[Hg] High 35.0 - 45.0 mmHg [facility] Resp Auto SS P O2 Arterial 74.3 mm[Hg] Low 80.0 - 100.0 mmHg FT Resp Auto SS pH Arterial 7.387 Normal 7.350 - 7.450 [facility] Resp Auto SS Sample Site R Radial (11/28/22 6:55 PM) Normal [facility] Resp Auto SS Sample Type Arterial Draw (11/28/22 6:55 PM) Normal [facility] Resp Auto SS HEMATOLOGYOrdered By: SYSTEM SYSTEM [...] [facility] HemeAutoSS Pre-Arrival Noteon Pre-Arrival Note Normal [facility] Troponin 0 Hr.on 11-28-2022 Troponin I.cardiac [Mass/Vol] 21.80 pg/mL Normal 15.90-38.40 [facility] Comment on above: Result Comment: The 95% CI (Confidence Interval) PPV (Positive Predictive Value) for myocardial infarction in females is 38 pg/mL, in males 51 pg/mL. The results should be used in conjunction with clinical conditions of myocardial infarction.(Access High Sensitivity Troponin I Instructions For Use, Claudia Luis, December 2017) Performed By: #### 1 [id number], 6534934, 6177800, 1458605, 01170451 ####[facility] [address] [place] [address] Troponin 3 Hr.on 11-28-2022 Troponin I.cardiac [Mass/Vol] 26.90 pg/mL Normal 15.90-38.40 [facility] Comment on above: Result Comment: The 95% CI (Confidence Interval) PPV (Positive Predictive Value) for myocardial infarction in females is 38 pg/mL, in males 51 pg/mL. The results should be used in conjunction with clinical conditions of myocardial infarction.(Access High Sensitivity Troponin I Instructions For Use, Claudia Luis, December 2017) Performed By: #### 1 [id number] ####[address] [place] [address] UA With Cult Reflexon 2022 Crystals LM Ql (Urine sed) Present Normal [facility] Comment on above: Performed By: #### 1 0540892 ####[place] [address] Epithelial cells.squamous LM.HPF (Urine sed) [#/Area] 0-2 Normal 0-2 [facility] Comment on above: Performed By: #### 1 3318977 ####[address] [place].plasma/[place].R BC (Bld) [Mass ratio] 0-3 Normal 0-3 [facility] Comment on above: Performed By: #### 1 9133527 ####[address] [address] Mucus Ql (Urine sed) TRACE Normal [facility] Comment on above: Performed By: #### 1 3645909 ####[address] [address] WBC LM.HPF (Urine sed) [#/Area] 0-5 Normal 0-5 [facility] Comment on above: Performed By: #### 1 6435049 ####[address] [address] Bilirubin Ql (U) Negative Normal Negative [facility] Comment on above: Performed By: #### 1 6330583 ####[address] [address] Clarity (U) CLEAR Normal Clear [facility] Comment on above: Performed By: #### 1 2699617 ####[facility] [address] [place] [address] Color (U) YELLOW Normal Yellow [facility] Comment on above: Performed By: #### 1 5539769 ####[facility] [address] [place] [address] Glucose Test strip (U) [Mass/Vol] Negative Normal Negative [facility] Comment on above: Performed By: #### 1 8539588 ####[facility] [address] [place] [address] Hemoglobin Ql (U) Negative Normal Negative [facility] Comment on above: Performed By: #### 1 5281265 ####[facility] [address] [place] [address] Ketones (U) [Mass/Vol] Negative Normal Negative [facility] Comment on above: Performed By: #### 1 1998202 ####[facility] [address] [facility] [address] Nitrite Ql (U) Negative Normal Negative [facility] Comment on above: Performed By: #### 1 7374646 ####[facility] [address] [place] [address] pH (U) 6.0 [pH] Invalid Interpretation Code 5.0-9.0 [facility] Comment on above: Performed By: #### 1 0988264 ####[facility] [address] [place] [address] Protein (U) [Mass/Vol] 2+ Abnormal Negative [facility] Comment on above: Performed By: #### 1 2372694 ####[address] [place] [address] Specific gravity (U) [Rel density] 1.025 Invalid Interpretation Code 1.005-1.030 [facility] Comment on above: Performed By: #### 1 5326139 ####[address] [place] [address] Type of Urine collection method Clean Catch Normal [facility] Comment on above: Performed By: #### 1 8395185 ####[facility] [address] [place] [address] Urobilinogen Qn (U) 0.2 {Lei'U}/dL Normal 0.0-1.0 [facility] Comment on above: Performed By: #### 1 6743883 ####[facility] [address] [place] [address] WBC Auto Ql (U) Negative Normal Negative [facility] Comment on above: Performed By: #### 1 4082917 ####[facility] [address] [place] [address] URINALYSISOrdered By: Emily Suero on 11-28-2022 Bilirubin [...] PM) Normal Negative [facility] UA Auto SS [place].plasma/[place].R BC (Bld) [Mass ratio] 0-3 /HPF Normal [...] FT UA Auto SS Urobilinogen Qn (U) 0.5770031 {Lei'U}/dL Normal 0.0 - 1.0 EU/dL FT UA Auto SS WBC Auto Ql (U) Negative (11/28/22 5:55 PM) Normal Negative [facility] UA Auto SS WBC LM.HPF (Urine sed) [#/Area] 0-5 /HPF Normal 0-5/HPF FT UA Auto SS XR Chest Single Viewon 11-28 XR Chest Single View Normal [facility] eGFRon 11-28-2022 GFR/1.73 sq M.predicted among non-blacks MDRD (S/P/Bld) [Vol rate/Area] 77 mL/min/1.73 m2 Normal >=59 [facility] Comment on above: Order Comment: Order added by Discern Expert. Result Comment: Land Commissioner earnest kidney disease could be indicated at eGFR's of less than 60 mL/min/1.73m2. Kidney failure is indicated at less than 15 mL/min/1.73m2. Performed By: #### 1 3675381, 1517937, 8481832, 1576386, 87330815 ####[facility] [address] [place] [address] CHEMISTRYOrdered By: SYSTEM SYSTEM on 11-26-2022 Albumin [...] 2.07 m[IU]/L Normal 0.34 - 5.60 mcIU/mL [facility] Remisol Urea nitrogen [Mass/Vol] 18 mg/dL Normal 5 - 21 mg/dL [facility] Remisol Urea nitrogen/Creatinine [Mass ratio] 20 mg/mg Normal 10 - 20 [facility] Remisol CMPon 11-26-2022 Albumin [Mass/Vol] 3.7 g/dL Normal 3.3-5.0 [facility] Comment on above: Performed By: #### 2 397070, 5089273, 01467236, 2034740 ####[facility] [address] [place] [address] Albumin/Globulin (S) [Mass conc ratio] 1.2 Normal 1.1-2.2 [facility] Comment on above: Performed By: #### 2 414904, 0762962, 12668325, 4315109 ####[facility] [address] [place] [address] ALP [Catalytic activity/Vol] 38 Int._Unit/L Normal 21-98 [facility] Comment on above: Performed By: #### 2 999916, 8102332, 51504046, 6976097 ####[facility] [address] [place] [address] ALT No additional P-5'-P [Catalytic activity/Vol] 11 Int._Unit/L Normal 6-46 [facility] Comment on above: Performed By: #### 2 868788, 1863658, 65948525, 1898918 ####[facility] [address] [place] [address] Anion gap [Moles/Vol] 14 mmol/L Normal 6-16 [facility] Comment on above: Performed By: #### 2 059723, 3603555, 18979194, 8729223 ####[facility] [address] [place] [address] AST [Catalytic activity/Vol] 15 Int._Unit/L Normal 5-43 [facility] Comment on above: Performed By: #### 2 337889, 5430797, 12263640, 8878199 ####[facility] [address] [place] [address] Bilirubin [Mass/Vol] 1.0 mg/dL Normal 0.0-1.1 [facility] [place] [facility] Comment on above: Performed By: #### 2 231828, 8928185, 12486221, 0417884 ####[facility] [address] [place] [address] Calcium [Mass/Vol] 9.2 mg/dL Normal 8.9-11.1 [facility] Comment on above: Performed By: #### 2 925321, 6275573, 11864897, 2862170 ####[facility] [address] [place] [address] Chloride [Moles/Vol] 107 mmol/L Normal 101-111 [facility] [place] [facility] Comment on above: Performed By: #### 2 499578, 3310962, 36391789, 9134132 ####[facility] [address] [place] [address] CO2 [Moles/Vol] 28 mmol/L Normal 21-[address] [facility] Comment on above: Performed By: #### 2 864516, 8203830, 33420980, 6993097 ####[facility] [address] [place] [address] Creatinine [Mass/Vol] 0.9 mg/dL Normal 0.5-1.3 [facility] Comment on above: Performed By: #### 2 113895, 3323570, 76097022, 8846656 ####[facility] [address] [place] [address] Globulin (S) [Mass/Vol] 3.2 g/dL Normal 1.4-4.0 [facility] Comment on above: Performed By: #### 2 590676, 7194491, 32660347, 8575726 ####[facility] [address] [place] [address] Glucose [Mass/Vol] 95 mg/dL Normal 55-199 [facility] Comment on above: Result Comment: If t his glucose result represents a fasting glucose, interpretation should refer to the following reference range: 55-99 mg/dL Performed By: #### 2 495090, 3610451, 98732185, 6694570 ####[facility] [address] [place] [address] Potassium [Moles/Vol] 4.2 mmol/L Normal 3.5-5.3 [facility] Comment on above: Performed By: #### 2 763470, 1044232, 32814511, 3063618 ####[facility] [address] [place] [address] Protein [Mass/Vol] 6.9 g/dL Normal 6.0-7.8 [facility] Comment on above: Performed By: #### 2 163637, 6853717, 13474601, 3067715 ####[facility] [address] [place] [address] Sodium [Moles/Vol] 145 mmol/L Normal 135-145 [facility] Comment on above: Performed By: #### 2 676406, 4354684, 63718036, 3496622 ####[facility] [address] [place] [address] Urea nitrogen [Mass/Vol] 18 mg/dL Normal 5-21 [facility] Comment on above: Performed By: #### 2 712294, 8367821, 98970861, 2986021 ####[facility] [address] [place] [address] Urea nitrogen/Creatinine [Mass ratio] 20 No Units Normal 10-20 [facility] Comment on above: Performed By: #### 2 023041, 1880929, 85098871, 1132561 ####[facility] [address] [place] [address] Consent for Treatmenton 07-0 Consent for Treatment [id number] [facility] [id number]#1 .00CD:127 Normal [facility] Lipid Panelon 11-26-2022 Cholesterol [Mass/Vol] 112 mg/dL Low 120-200 [facility] Comment on above: Performed By: #### 2 396850, 2942005, 17978827, 0669716 ####[facility] [address] [place] [address] Cholesterol in HDL [Mass/Vol] 49 mg/dL Invalid Interpretation Code [facility] Comment on above: Result Comment: HDL > or equal to 60 mg/dL: Low cardiovascular riskHDL < 40 mg/dL : High cardiovascular risk Performed By: #### 2 816026, 5444261, 16953810, 4934629 ####[facility] [address] [place] [address] Cholesterol in LDL [Mass/Vol] 42 mg/dL Normal <=129 [facility] Comment on above: Performed By: #### 2 791088, 0252716, 92808259, 1113982 ####[facility] [address] [place] [address] Cholesterol in VLDL [Mass/Vol] 14 mg/dL Normal 7-40 [facility] Comment on above: Performed By: #### 2 263981, 6882186, 02470608, 6471031 ####[facility] [address] [place] [address] Triglyceride [Mass/Vol] 69 mg/dL Normal <=149 F [facility] Comment on above: Performed By: #### 2 013980, 7321051, 51933004, 0650415 ####[facility] [address] [place] [address] Physician Orderon 11-26-2022 Physician Order [id number]# 1.00CD:127 Normal [facility] TSHon 11-26-2022 TSH Qn 2.07 m[IU]/L Normal 0.34-5.60 [facility] Comment on above: Performed By: #### 2 992202, 4651736, 97213113, 1983553 ####[facility] [address] [place] [address] eGFRon 11-26-2022 GFR/1.73 sq M.predicted among non-blacks MDRD (S/P/Bld) [Vol rate/Area] 87 mL/min/1.73 m2 Normal >=59 [facility] Comment on above: Order Comment: Order added by Discern Expert. Result Comment: Land Commissioner earnest kidney disease could be indicated at eGFR's of less than 60 mL/min/1.73m2. Kidney failure is indicated at less than 15 mL/min/1.73m2. Performed By: #### 2 161923, 3742581, 62435061, 6310879 ####[facility] [address] [place] [address] Discharge Instructionson Discharge Instructions [id number]#1 .00CD:127 Normal [facility] Transfer Documentson 023 Transfer Documents [id number]#1 .00CD:127 Normal [facility] Capillary Glucose POCon Glucose [Mass/Vol] 166 mg/dL High 55-99 [facility] Comment on above: Result Comment: Gareth guerrero RN/ Performed By: #### 2 55817672 ####[facility] [address] [place] [address] Glucose [Mass/Vol] 119 mg/dL High 55-99 [facility] Comment on above: Result Comment: Repe at Test Performed By: #### 2 16936663 ####[facility] [address] [place] [address] Discharge Note-Nursingon Discharge Note-Nursing Normal [facility] SndL5pxg 09-28-2022 HbA1c (Bld) [Mass fraction] 6.4 % High <=5.9 [facility] Comment on above: Order Comment: IF UN ABLE TO ADD TO ED LABS Performed By: #### 2 452111, [id number] ####[facility] [address] [place] [address] Inpatient Clinical Summaryon 09-28-2022 Inpatient Clinical Summary Normal [facility] Inpatient Patient Summaryon 09-28-2022 Inpatient Patient Summary Normal [facility] Inpatient Patient Summary Normal [facility] Interdisciplinary Note - Santosh e Manageron 09-28-2022 Interdisciplinary Note - Sports Writer Normal [facility] Comment on above: Result Comment: Elec tronically Signed By: Jose HAYDEN, Norma\.br\Date and Time Signed: 09/28/22 15:54 EDT Monitor Recordon 09-28-2022 Monitor Record [id number]# 1.00CD:127 Normal [facility] Capillary Glucose POCon Glucose [Mass/Vol] 192 mg/dL High 55-99 [facility] Comment on above: Result Comment: Gareth GARDINER Performed By: #### 2 97007834 ####[facility] [address] [place] [address] Glucose [Mass/Vol] 130 mg/dL High 55-99 [facility] Comment on above: Result Comment: No C overage Given Performed By: #### 2 67043662 ####[facility] [address] [place] [address] Glucose [Mass/Vol] 202 mg/dL High 55-99 [facility] Comment on above: Result Comment: Gareth GARDINER Performed By: #### 2 65167105 ####[facility] [address] [place] [address] Glucose [Mass/Vol] 89 mg/dL Normal 55-99 [facility] Comment on above: Result Comment: Gareth GARDINER Performed By: #### 2 79709858 ####[facility] [address] [place] [address] Insurance Correspondence Off iceon 09-27-2022 Insurance Correspondence Office [id number]# 1.00CD:127 Normal [facility] Interdisciplinary Note - Santosh e Manageron 09-27-2022 Interdisciplinary Note - Sports Writer Normal [facility] Comment on above: Result Comment: [...] anticipated upon d/c home. AM-PAC [facility] Lyteson 09-27-2022 Anion gap [Moles/Vol] 9 mmol/L Normal 6-16 [facility] Comment on above: Performed By: #### 2 110596, [id number] ####[facility] [address] [place] [address] Chloride [Moles/Vol] 105 mmol/L Normal 101-111 [facility] [place] [facility] Comment on above: Performed By: #### 2 384996, 346057313 ####[facility] [address] [place] [address] CO2 [Moles/Vol] 26 mmol/L Normal 21-[address] [facility] Comment on above: Performed By: #### 2 039667, 986508836 ####[facility] [address] [place] [address] Potassium [Moles/Vol] 4.2 mmol/L Normal 3.5-5.3 [facility] Comment on above: Performed By: #### 2 533906, 235625164 ####[facility] [address] [place] [address] Sodium [Moles/Vol] 136 mmol/L Normal 135-145 [facility] Comment on above: Performed By: #### 2 657310, 822576217 ####[facility] [address] [place] [address] Monitor Recordon 09-27-2022 Monitor Record [id number]# 1.00CD:127 Normal [facility] Monitor Record [id number]# 1.00CD:127 Normal [facility] Progress Note-Nurseon 2022 Progress Note-Nurse Normal [facility] Progress Note-Physicianon Progress Note-Physician Normal [facility] Comment on above: Result Comment: Elec tronically Signed By: Adeline COLEMAN\.br\Date and Time Signed: 09/27/22 15:34 EDT\.br\Electronically Co-Signed By: Adeline COLEMAN\.br\Date and Time Co-Signed: 09/27/22 15:37 EDT\.br\Electronically Co-Signed By: Ganesh Minaya MD\.br\Date and Time Co-Signed: 09/27/22 18:58 EDT Auto Diffon 09-26-2022 Basophils/100 WBC (Bld) 0.5 % Normal 0.0-2.0 [facility] Comment on above: Order Comment: Order Added by Discern Expert. Performed By: #### 1 5089338, 3982522, 1872981, 8073612 ####[facility] [address] [place] [address] Basophils/Leukocytes Auto (Bld) [Pure # fraction] 0.0 E9/L Normal 0.0-0.2 [facility] Comment on above: Order Comment: Order Added by Discern Expert. Performed By: #### 1 0281070, 0440179, 2496057, 6993261 ####[facility] [address] [place] [address] Eosinophils/100 WBC (Bld) 3.3 % Normal 0.0-8.0 [facility] Comment on above: Order Comment: Order Added by Discern Expert. Performed By: #### 1 4207738, 1319841, 3708355, 1122213 ####[address] [place] [address] Eosinophils/Leukocytes Auto (Bld) [Pure # fraction] 0.3 E9/L Normal 0.0-0.5 [facility] Comment on above: Order Comment: Order Added by Discern Expert. Performed By: #### 1 7654986, 4065245, 4194808, 6334683 ####[facility] [address] [place] [address] Lymphocytes/100 WBC (Bld) 9.5 % Low 14.0-50.0 [facility] Comment on above: Order Comment: Order Added by Discern Expert. Performed By: #### 1 6496750, 7126021, 1469679, 8935845 ####[address] [place] [address] Lymphocytes/Leukocytes Auto (Bld) [Pure # fraction] 0.8 E9/L Low 1.0-4.0 [facility] Comment on above: Order Comment: Order Added by Discern Expert. Performed By: #### 1 3419287, 2718413, 6330726, 8492614 ####[address] [place] [address] Monocytes/100 WBC (Bld) 7.2 % Normal 4.0-14.0 [facility] Comment on above: Order Comment: Order Added by Discern Expert. Performed By: #### 1 6180765, 4206073, 6651633, 8903940 ####[address] [place] [address] Monocytes/Leukocytes Auto (Bld) [Pure # fraction] 0.6 E9/L Normal 0.2-1.0 [facility] Comment on above: Order Comment: Order Added by Discern Expert. Performed By: #### 1 1811684, 5277035, 4675816, 4900136 ####[address] [place] [address] Neutrophils/100 WBC (Bld) 79.5 % High 36.0-75.0 [facility] Comment on above: Order Comment: Order Added by Discern Expert. Performed By: #### 1 4653258, 9145824, 7606207, 5360428 ####[facility] [address] [place] [address] Neutrophils/Leukocytes Auto (Bld) [Pure # fraction] 6.7 E9/L Normal 2.0-7.5 [facility] Comment on above: Order Comment: Order Added by Discern Expert. Performed By: #### 1 8919722, 3571313, 0286775, 9019315 ####[facility] [address] [place] [address] BMPon 09-26-2022 Creatinine [Mass/Vol] 1.0 mg/dL Normal 0.5-1.3 [facility] Comment on above: Performed By: #### 1 7245332, 7683329, 2187500, 7241171 ####[facility] [address] [place] [address] Urea nitrogen [Mass/Vol] 25 mg/dL High 5-21 [facility] Comment on above: Performed By: #### 1 1583877, 5364130, 0281817, 3508727 ####[facility] [address] [place] [address] Urea nitrogen/Creatinine [Mass ratio] 25 No Units High 10-20 [facility] Comment on above: Performed By: #### 1 3573984, 0539959, 6857470, 0727925 ####[facility] [address] [place] [address] Anion gap [Moles/Vol] 10 mmol/L Normal 6-16 [facility] Comment on above: Performed By: #### 1 7847667, 2541285, 4999762, 5935621 ####[facility] [address] [place] [address] Calcium [Mass/Vol] 8.9 mg/dL Normal 8.9-11.1 [facility] Comment on above: Performed By: #### 1 [id number], [id number], [id number], [id number] ####[facility] [address] [place] [address] Chloride [Moles/Vol] 101 mmol/L Normal 101-111 [facility] [place] [facility] Comment on above: Performed By: #### 1 [id number], [id number], [id number], [id number] ####[facility] [address] [place] [address] CO2 [Moles/Vol] 26 mmol/L Normal 21-[address] [facility] Comment on above: Performed By: #### 1 [id number], [id number], 4875391, [id number] ####[facility] [address] [place] [address] Glucose [Mass/Vol] 112 mg/dL Normal 55-199 [facility] Comment on above: Result Comment: If t his glucose result represents a fasting glucose, interpretation should refer to the following reference range: 55-99 mg/dL Performed By: #### 1 [id number], 8413450, [id number], 8672112 ####[facility] [address] [place] [address] Potassium [Moles/Vol] 4.1 mmol/L Normal 3.5-5.3 [facility] Comment on above: Performed By: #### 1 [id number], 3861391, 8148535, 4466803 ####[facility] [address] [place] [address] Sodium [Moles/Vol] 133 mmol/L Low 135-145 [facility] Comment on above: Performed By: #### 1 [id number], 4498895, 3092695, 6303275 ####[facility] [address] [place] [address] CBC w/ Auto Diffon 3 Erythrocyte distribution width (RBC) [Ratio] 14.6 % High 10.9-14.2 [facility] Comment on above: Performed By: #### 1 [id number], 5653815, 1406476, 3113851 ####[facility] [address] [place] [address] Hematocrit (Bld) [Volume fraction] 37.6 % Low 37.7-49.0 [facility] Comment on above: Performed By: #### 1 [id number], 9938101, 7056587, 2553007 ####[facility] [address] [place] [address] Hemoglobin (Bld) [Mass/Vol] 12.5 g/dL Low 13.5-17.5 [facility] Comment on above: Performed By: #### 1 [id number], 9844051, 0303978, 4971016 ####[address] [address] MCH (RBC) [Entitic mass] 28.5 pg Normal 27.0-34.0 [facility] Comment on above: Performed By: #### 1 3867332, 4432294, 1630227, 6122008 ####[address] [address] MCHC (RBC) [Mass/Vol] 33.2 g/dL Normal 31.4-36.0 [facility] Comment on above: Performed By: #### 1 8129063, 1608693, 4522554, 9094469 ####[address] [address] MCV (RBC) [Entitic vol] 85.8 fL Normal 80.0-100.0 [facility] Comment on above: Performed By: #### 1 6830807, 8445587, 3903419, 5292943 ####[address] [address] Platelet mean volume (Bld) [Entitic vol] 10.3 fL Normal 6.4-10.8 [facility] Comment on above: Performed By: #### 1 6709318, 3084563, 7834813, 9051204 ####[address] [address] Platelets (Bld) [#/Vol] 164.0 E9/L Normal 150.0-500.0 [facility] Comment on above: Performed By: #### 1 1066117, 4957248, 7831817, 8107010 ####[address] [address] RBC (Bld) [#/Vol] 4.4 E12/L Normal 4.3-5.9 [facility] Comment on above: Performed By: #### 1 3897612, 7328004, 6344126, 3118571 ####[facility] [address] [place] [address] WBC corrected for nucl RBC Auto (Bld) [#/Vol] 8.4 E9/L Normal 4.0-11.[address] [facility] Comment on above: Performed By: #### 1 2828947, 2714138, 8102584, 6266061 ####[facility] [address] [place] [address] Capillary Glucose POCon Glucose [Mass/Vol] 161 mg/dL High 55-99 [facility] Comment on above: Result Comment: Gareth guerrero RN/MD Performed By: #### 2 [id number] ####[facility] [address] [place] [address] Consent for Treatmenton Consent for Treatment [id number]:127 Normal [facility] ED Clinical Summaryon 2022 ED Clinical Summary Normal [facility] ED Note-Physicianon 09-27-19 ED Note-Physician Normal [facility] Comment on above: Result Comment: Elec tronically Signed By: Shane Pan DO\.br\Date and Time Signed: 09/26/22 16:06 EDT ED Patient Education Noteon 09-26-2022 ED Patient Education Note Normal [facility] ED Patient Summaryon 023 ED Patient Summary Normal [facility] EMS Documentationon 09-27-19 EMS Documentation Normal [facility] EMS Documentation Normal [facility] Pre-Arrival Noteon Pre-Arrival Note Normal [facility] Progress Noteson 09-26-2022 [employer] Authentication Interface Message Text EMERGENCY TRIAGE, TREAT AND TRANSPORT (ET3) DOCUMENTATION OF TELEHEALTH VISIT Date / Time: 09/26/2022929 Name: Clyde Humphrey : 1945 SSN: [id number] EMS Agency: [facility] [x] Verbal consent obtained [...] Completed by: Coby Lugo MD Normal [facility] UA With Cult Reflexon 2022 Bilirubin Ql (U) Negative Normal Negative [facility] Comment on above: Order Comment: can s traight cath if needed. Performed By: #### 1 [id number] ####[facility] [address] [place] [address] Clarity (U) CLEAR Normal Clear [facility] Comment on above: Order Comment: can s traight cath if needed. Performed By: #### 1 [id number] ####[facility] [address] [place] [address] Color (U) YELLOW Normal Yellow [facility] Comment on above: Order Comment: can s traight cath if needed. Performed By: #### 1 [id number] ####[facility] [address] [place] [address] Epithelial cells.squamous LM.HPF (Urine sed) [#/Area] 0-2 Normal 0-2 [facility] Comment on above: Order Comment: can s traight cath if needed. Performed By: #### 1 [id number] ####[facility] [address] [place] [address] Glucose Test strip (U) [Mass/Vol] Negative Normal Negative [facility] Comment on above: Order Comment: can s traight cath if needed. Performed By: #### 1 3612515 ####[facility] [address] [place] [address] Hemoglobin Ql (U) Negative Normal Negative [facility] Comment on above: Order Comment: can s traight cath if needed. Performed By: #### 1 1152644 ####[facility] [address] [place] [address] Ketones (U) [Mass/Vol] Negative Normal Negative [facility] Comment on above: Order Comment: can s traight cath if needed. Performed By: #### 1 [id number] ####[facility] [address] [place] [address] [place].plasma/[place].R BC (Bld) [Mass ratio] 0-3 Normal 0-3 [facility] Comment on above: Order Comment: can s traight cath if needed. Performed By: #### 1 8905579 ####[facility] [address] [place] [address] Nitrite Ql (U) Negative Normal Negative [facility] Comment on above: Order Comment: can s traight cath if needed. Performed By: #### 1 [id number] ####[facility] [address] [place] [address] pH (U) 5.5 [pH] Invalid Interpretation Code 5.0-9.0 [facility] Comment on above: Order Comment: can s traight cath if needed. Performed By: #### 1 [id number] ####[facility] [address] [place] [address] Protein (U) [Mass/Vol] Negative Normal Negative [facility] Comment on above: Order Comment: can s traight cath if needed. Performed By: #### 1 7750589 ####[facility] [address] [place] [address] Specific gravity (U) [Rel density] 1.025 Invalid Interpretation Code 1.005-1.030 [facility] Comment on above: Order Comment: can s traight cath if needed. Performed By: #### 1 [id number] ####[address] [address] Type of Urine collection method Clean Catch Normal [facility] Comment on above: Order Comment: can s traight cath if needed. Performed By: #### 1 [id number] ####[place] [address]046357 Urobilinogen Qn (U) 1.0 {Lei'U}/dL Normal 0.0-1.0 [facility] Comment on above: Order Comment: can s traight cath if needed. Performed By: #### 1 [id number] ####[facility] [address] [place], [place] [address] WBC Auto Ql (U) Negative Normal Negative [facility] Comment on above: Order Comment: can s traight cath if needed. Performed By: #### 1 [id number] ####[place] 6046357 WBC LM.HPF (Urine sed) [#/Area] 0-5 Normal 0-5 [facility] Comment on above: Order Comment: can s traight cath if needed. Performed By: #### 1 [id number] ####[address] [address] XR Chest Single Viewon 09-26 XR Chest Single View Normal [facility] eGFRon 09-26-2022 GFR/1.73 sq M.predicted among non-blacks MDRD (S/P/Bld) [Vol rate/Area] 77 mL/min/1.73 m2 Normal >=59 [facility] Comment on above: Order Comment: Order added by Discern Expert. Result Comment: Land Commissioner earnest kidney disease could be indicated at eGFR's of less than 60 mL/min/1.73m2. Kidney failure is indicated at less than 15 mL/min/1.73m2. Performed By: #### 1 [id number], 5119053, 4441192, 4812213 ####[facility] [address] [place] [address] Progress Noteson 09-07-2022 [employer] Authentication Interface Message Text EMERGENCY TRIAGE, TREAT AND TRANSPORT (ET3) DOCUMENTATION OF TELEHEALTH VISIT Date / Time: 09/06/20222146 Name: Clyde Humphrey : 1945 SSN: [id number] EMS Agency: [facility] [x] Verbal consent obtained [...] Completed by: Marcelino Echavarria MD Normal [facility] Q - CULTURE,URINE,ROUTINEon 06-23-2021 CULTURE, URINE, ROUTINE SEE NOTE Normal N [facility] Manufacturing Director Comment on above: Order Comment: [facility] Testing performed at: [facility], [address] [facility], [address] [place] [address], [id number], Park Guard: Archie Sinha MD [facility] Collection Date/Time: [id number] [facility] Results Received Date/Time: [id number] [facility] Reported Date/Time: Result Comment: CULT URE, URINE, ROUTINE Micro Number: [id number] Test Status: Final Specimen Source: Urine Specimen Quality: Adequate Result: Mixed genital alvin isolated. These superficial bacteria are not indicative of a urinary tract infection. No further organism identification is warranted on this specimen. If clinically indicated, recollect clean-catch, mid-stream urine and transfer immediately to Urine Culture Transport Tube. Performed By: #### 6 304R #### [facility] Default [address] [place] [address] Q - CULTURE,URINE,ROUTINEon 05-05-2021 CULTURE, URINE, ROUTINE SEE NOTE Normal N [facility] Manufacturing Director Comment on above: Order Comment: [facility] performed at: [facility], [address] , [address] [place] [address], [id number], Park Guard: Archie Sinha MD [facility] Collection Date/Time: [id number] [facility] Results Received Date/Time: [id number] [facility] Reported Date/Time: [id number] Result Comment: CULT URE, URINE, ROUTINE Micro Number: [id number] Test Status: Final Specimen Source: Urine Specimen Quality: Adequate Result: Growth of mixed alvin was isolated, suggesting probable contamination. No further testing will be performed. If clinically indicated, recollection using a method to minimize contamination, with prompt transfer to Urine Culture Transport Tube, is recommended. Performed By: #### 6 [id number] #### [facility] [address] [place] [address] Vital Signs Date Time Vital Sign Value Performing Clinician Facility 01-24-2023 10:00-0400 Hourly Rounding Mbanefo OJUKWU [facility] 01-24-2023 10:00-0400 Promise to Return Mbanefo OJUKWU [facility] 01-24-2023 09:00-0400 Hourly Rounding Mbanefo OJUKWU [facility] 01-24-2023 09:00-0400 Promise to Return Mbanefo OJUKWU [facility] 01-24-2023 08:29-0400 Diastolic blood pressure 73 mm[Hg] Mbanefo OJUKWU [facility] 01-24-2023 08:29-0400 Systolic blood pressure 157 mm[Hg] Mbanefo OJUKWU [facility] 01-24-2023 08:27-0400 Blood Pressure Location Mbanefo OJUKWU [facility] 01-24-2023 08:27-0400 Body temperature 97.7 [degF] Mbanefo OJUKWU [facility] 01-24-2023 08:27-0400 Diastolic blood pressure 73 mm[Hg] Mbanefo OJUKWU [facility] 01-24-2023 08:27-0400 Heart rate 82 /min Mbanefo OJUKWU [facility] 01-24-2023 08:27-0400 Respiratory rate 16 /min Mbanefo OJUKWU [facility] 01-24-2023 08:27-0400 Systolic blood pressure 157 mm[Hg] Mbanefo OJUKWU [facility] 01-24-2023 08:00-0400 Hourly Rounding Mbanefo OJUKWU [facility] 01-24-2023 08:00-0400 Promise to Return Mbanefo OJUKWU [facility] 01-24-2023 00:05-0400 Blood Pressure Location Mbanefo OJUKWU [facility] 01-24-2023 00:05-0400 Body temperature 97.7 [degF] Mbanefo OJUKWU [facility] 01-24-2023 00:05-0400 Diastolic blood pressure 76 mm[Hg] Mbanefo OJUKWU [facility] 01-24-2023 00:05-0400 Heart rate 83 /min Mbanefo OJUKWU [facility] 01-24-2023 00:05-0400 Mean blood pressure 99 mm[Hg] Mbanefo OJUKWU [facility] 01-24-2023 00:05-0400 SaO2% (BldA) [Mass fraction] 97 % Mbanefo OJUKWU [facility] 01-24-2023 00:05-0400 Systolic blood pressure 144 mm[Hg] Mbanefo OJUKWU [facility] 01-23-2023 19:36-0400 Heart rate 81 /min Mbanefo OJUKWU [facility] 01-23-2023 19:36-0400 SaO2% (BldA) [Mass fraction] 96 % Mbanefo OJUKWU [facility] 01-23-2023 19:36-0400 Body temperature 97.34 [degF] Mbanefo OJUKWU [facility] 01-23-2023 19:34-0400 Mean blood pressure 83 mm[Hg] Mbanefo OJUKWU [facility] 01-23-2023 13:00-0400 Body temperature 98.06 [degF] Mbanefo OJUKWU [facility] 01-23-2023 06:55-0400 Blood Pressure Location Mbanefo OJUKWU [facility] 01-23-2023 06:55-0400 Mean blood pressure 89 mm[Hg] Mbanefo OJUKWU [facility] 01-23-2023 06:55-0400 Respiratory rate 16 /min Mbanefo OJUKWU [facility] 01-23-2023 06:55-0400 SaO2% (BldA) [Mass fraction] 93 % Mbanefo OJUKWU [facility] 01-22-2023 23:00-0400 Body temperature 97.88 [degF] Mbanefo OJUKWU [facility] 01-22-2023 23:00-0400 Mean blood pressure 82 mm[Hg] Mbanefo OJUKWU [facility] 01-22-2023 23:00-0400 Respiratory rate 18 /min Mbanefo OJUKWU [facility] 01-22-2023 18:37-0400 Body temperature 97.52 [degF] Mbanefo OJUKWU [facility] 01-22-2023 18:36-0400 Mean blood pressure 81 mm[Hg] Mbanefo OJUKWU [facility] 01-22-2023 16:09-0400 Mean blood pressure 81 mm[Hg] Mbanefo OJUKWU [facility] 01-22-2023 16:07-0400 Body temperature 97.52 [degF] Mbanefo OJUKWU [facility] 01-22-2023 04:50-0400 Heart rate 77 /min Mbanefo OJUKWU [facility] 01-21-2023 21:09-0400 Heart rate 85 /min Mbanefo OJUKWU [facility] 01-21-2023 15:11-0400 Heart rate 78 /min Mbanefo OJUKWU [facility] 12-20-2022 09:37-0400 Hourly Rounding Maycol CAGLE [facility] 12-20-2022 09:37-0400 Promise to Return Maycolyasmine GEELIN [facility] 12-20-2022 09:06-0400 Heart rate 65 /min Maycolyasmine ARRIOLASLIN [facility] 12-20-2022 09:06-0400 Respiratory rate 20 /min Maycol ARRIOLASLIN [facility] 12-20-2022 09:06-0400 SaO2% (BldA) [Mass fraction] 92 % Maycolyasmine ARRIOLASLIN [facility] 12-20-2022 08:56-0400 Heart rate 61 /min Maycol TSERING [facility] 12-20-2022 08:56-0400 Respiratory rate 20 /min Maycol TSERING [facility] 12-20-2022 08:56-0400 SaO2% (BldA) [Mass fraction] 92 % Maycol TSERING [facility] 12-20-2022 08:51-0400 Hourly Rounding Maycol TSERING [facility] 12-20-2022 08:51-0400 Promise to Return Maycol TSERING [facility] 12-20-2022 08:50-0400 Hourly Rounding Maycol TSERING [facility] 12-20-2022 08:31-0400 Promise to Return Maycol TSERING [facility] 12-20-2022 07:29-0400 Heart rate 60 /min Maycol TSERING [facility] 12-20-2022 07:29-0400 SaO2% (BldA) [Mass fraction] 93 % Maycol TSERING [facility] 12-20-2022 07:28-0400 Body temperature 98.06 [degF] Maycol TSERING [facility] 12-20-2022 07:28-0400 Diastolic blood pressure 69 mm[Hg] Maycol TSERING [facility] 12-20-2022 07:28-0400 Mean blood pressure 94 mm[Hg] Maycol TSERING [facility] 07-30-2023 07:28-0400 Systolic blood pressure 143 mm[Hg] Maycol TSERING [facility] 12-20-2022 03:25-0400 Respiratory rate 16 /min Maycol TSERING [facility] 12-20-2022 00:15-0400 Body temperature 97.7 [degF] Maycol TSERING [facility] 12-20-2022 00:15-0400 Diastolic blood pressure 56 mm[Hg] Maycol TSERING [facility] 12-20-2022 00:15-0400 Systolic blood pressure 135 mm[Hg] Maycol TSERING [facility] 12-19-2022 19:28-0400 Body temperature 98.42 [degF] Maycolyasmine ARRIOLASLIN [facility] 12-19-2022 19:27-0400 Diastolic blood pressure 69 mm[Hg] Maycol TSERING [facility] 12-19-2022 19:27-0400 Mean blood pressure 90 mm[Hg] Maycol TSERING [facility] 12-19-2022 19:27-0400 Systolic blood pressure 134 mm[Hg] Maycol TSERING [facility] 12-19-2022 16:26-0400 gluc 111 mg/dL Maycol TSERING [facility] 12-19-2022 16:06-0400 Mean blood pressure 95 mm[Hg] Maycol TSERING [facility] 12-19-2022 16:00-0400 Body temperature 98.06 [degF] Maycol TSERING [facility] 12-19-2022 11:58-0400 gluc 201 mg/dL Mayclo TSERING [facility] 12-19-2022 08:18-0400 gluc 93 mg/dL Maycol TSERING [facility] 12-19-2022 08:00-0400 Body temperature 98.6 [degF] Maycol TSERING [facility] 12-18-2022 05:46-0400 Blood Pressure Location Maycol TSERING [facility] 12-18-2022 05:46-0400 Heart rate 67 /min Maycol TSERING [facility] 12-18-2022 05:00-0400 Body temperature 98.42 [degF] Maycol TSERING [facility] 12-18-2022 05:00-0400 Mean blood pressure 78 mm[Hg] Maycol TSERING [facility] 12-18-2022 05:00-0400 Respiratory rate 20 /min Maycol TSERING [facility] 12-18-2022 04:00-0400 Mean blood pressure 77 mm[Hg] Maycol TSERING [facility] 12-18-2022 04:00-0400 Respiratory rate 21 /min Maycol TSERING [facility] 12-18-2022 03:00-0400 Mean blood pressure 75 mm[Hg] Maycol TSERING [facility] 12-18-2022 03:00-0400 Respiratory rate 22 /min Maycol TSERING [facility] 12-18-2022 00:09-0400 Heart rate 85 /min Maycol TSERING [facility] 12-17-2022 23:54-0400 Heart rate 86 /min Maycol TSERING [facility] 12-02-2022 14:00-0400 SaO2% (BldA) [Mass fraction] 93 % Maycol TSERING [facility] 12-02-2022 13:00-0400 Hourly Rounding Maycol TSERING [facility] 12-02-2022 13:00-0400 Promise to Return Mayocl TSERING [facility] 12-02-2022 12:58-0400 Heart rate 85 /min Maycol TSERING [facility] 12-02-2022 12:58-0400 SaO2% (BldA) [Mass fraction] 88 % Maycol TSERING [facility] 12-02-2022 12:58-0400 Body temperature 97.7 [degF] Maycol TSERING [facility] 12-02-2022 12:58-0400 Diastolic blood pressure 75 mm[Hg] Maycol TSERING [facility] 12-02-2022 12:58-0400 Mean blood pressure 102 mm[Hg] Maycol TSERING [facility] 12-02-2022 12:58-0400 Systolic blood pressure 157 mm[Hg] Maycol TSERING [facility] 12-02-2022 12:10-0400 Hourly Rounding Maycol TSERING [facility] 12-02-2022 12:10-0400 Promise to Return Maycol TSERING [facility] 12-02-2022 11:30-0400 Hourly Rounding Maycol TSERING [facility] 12-02-2022 11:30-0400 Promise to Return Maycol TSERING [facility] 12-02-2022 08:00-0400 Blood Pressure Location Maycol TSERING [facility] 12-02-2022 08:00-0400 Diastolic blood pressure 79 mm[Hg] Maycol TSERING [facility] 12-02-2022 08:00-0400 gluc 127 mg/dL Maycol TSERING [facility] 12-02-2022 08:00-0400 Heart rate 76 /min Maycol TSERING [facility] 12-02-2022 08:00-0400 Respiratory rate 20 /min Maycol TSERING [facility] 12-02-2022 08:00-0400 Systolic blood pressure 141 mm[Hg] Maycol TSERING [facility] 12-02-2022 07:46-0400 Heart rate 66 /min Maycol TSERING [facility] 12-02-2022 07:46-0400 Respiratory rate 18 /min Maycol TSERING [facility] 12-02-2022 07:40-0400 Respiratory rate 18 /min Maycol TSERING [facility] 12-01-2022 23:32-0400 Body temperature 97.16 [degF] Maycol TSERING [facility] 12-01-2022 23:32-0400 Diastolic blood pressure 77 mm[Hg] Maycol TSERING [facility] 12-01-2022 23:32-0400 Mean blood pressure 101 mm[Hg] Maycol TSERING [facility] 12-01-2022 23:32-0400 Systolic blood pressure 130 mm[Hg] Maycol TSERING [facility] 12-01-2022 20:01-0400 Body temperature 97.16 [degF] Maycol TSERING [facility] 12-01-2022 20:01-0400 Mean blood pressure 101 mm[Hg] Maycol TSERING [facility] 12-01-2022 12:07-0400 Body temperature 97.52 [degF] Maycol TSERING [facility] 12-01-2022 07:30-0400 Body temperature 96.98 [degF] Maycol TSERING [facility] 12-01-2022 06:00-0400 gluc 110 mg/dL Maycol TSERING [facility] 11-30-2022 23:32-0400 FIO2 30 % Maycol TSERING [facility] 11-30-2022 20:04-0400 Mean blood pressure 98 mm[Hg] Maycol TSERING [facility] 11-30-2022 04:38-0400 Mean blood pressure 91 mm[Hg] Maycol TSERING [facility] 11-29-2022 20:16-0400 FIO2 30 % Maycol TSERING [facility] 11-29-2022 19:00-0400 Blood Pressure Location Maycol TSERING [facility] 11-29-2022 08:10-0400 FIO2 30 % Maycol CAGLE [facility] 11-29-2022 04:08-0400 gluc 107 mg/dL Maycol CAGLE [facility] 11-29-2022 04:08-0400 Mean blood pressure 80 mm[Hg] Maycol CAGLE [facility] 11-29-2022 00:16-0400 Heart rate 48 /min Maycol CAGLE [facility] 11-28-2022 22:55-0400 Respiratory rate 19 /min Maycol CAGLE [facility] 11-28-2022 21:45-0400 Respiratory rate 18 /min Maycol CAGLE [facility] 11-28-2022 20:45-0400 Respiratory rate 22 /min Maycol CAGLE [facility] 11-28-2022 18:55-0400 SaO2% (BldA) [Mass fraction] 95.4 % Maycol CAGLE [facility] Resp [facility] SS 11-28-2022 17:13-0400 Heart rate 59 /min Maycol CAGLE [facility] 09-07-2022 01:10-0400 Diastolic blood [facility] 53 mm[facility]Hg[facility] 01:10-0400 Heart rate 70 /min [facility] 09-07-2022 01:10-0400 SaO2% (BldA) [Mass fraction] 96 % [facility] 09-07-2022 01:10-0400 Systolic blood pressure 135 mm[Hg] [facility] Encounters Encounter Date Encounter Type Care Provider Facility Start: 02-01-2023 ambulatory Robin Garcia acility:[facility] Start: 01-21-2023 End: 01-24-2023 Evaluation and management of inpatient [place] Facility:[facility] Start: 01-21-2023 End: 01-24-2023 Evaluation and management of inpatient Steve MayesJUKWU [facility] Start: 01-15-2023 End: 01-16-2023 ambulatory Donta GRAND GORGE Facility:[id number] Start: 01-15-2023 End: 01-15-2023 Off-Site [facility] Start: 12-22-2022 End: 12-23-[address] [facility] Facility:CD:[id number] Start: 12-22-2022 End: 12-22-2022 Off-Site [facility] Start: 12-18-2022 End: 12-20-2022 Evaluation and management of inpatient Maycol CAGLE Facility:[facility] Start: 12-17-2022 End: 12-20-2022 Evaluation and management of inpatient Maycol CAGLE [facility] Start: 12-14-2022 End: 01-16-2023 ambulatory Donta GRAND GORGE Facility:[id number] Start: 12-14-2022 End: 01-16-2023 In-Between Visit [facility] Start: 12-11-[address] [facility] Facilit y:LUISA Rodas Start: 12-03-2022 End: 12-03-2022 Off-Site [facility] Start: 12-03-2022 End: 12-04-[address] [facility] Facility:[id number] Start: 12-02-2022 End: 01-16-2023 ambulatory Donta NOONAN Facility:[facility] Start: 11-30-2022 ambulatory Facility:[id number] Start: 11-30-2022 ambulatory Facility:1 [id number] Start: 11-29-2022 ambulatory Facility:1 [id number] Start: 11-29-2022 End: 12-02-2022 Evaluation and management of inpatient Maycol CAGLE Facility:[facility] Start: 11-28-2022 End: 12-02-2022 Evaluation and management of inpatient Maycol CAGLE [facility] Start: 11-26-2022 End: 11-27-2022 ambulatory Bienvenido Barroso Facility:[facility] Start: 11-26-2022 End: 11-26-2022 Patient encounter procedure Bienvenido Barroso [facility] Start: 09-26-2022 End: 09-28-2022 ambulatory UNKNOWN PROVIDER Facility:[facility] Start: 09-07-2022 End: 09-08-2022 ambulatory UNKNOWN PROVIDER Facility:[facility] Start: 2022 End: 2022 ambulatory [facility] Emergenc y Triage, Treat and Transport Start: 2022 End: 2022 Emergency department patient visit [facility] Emergency Triage, Treat and Transport Comment [...] (2 - PPSV23 if available, else PCV20) [facility] Start: 1994 Shingles (RZV) Vacci ne (1 of 2) Shingles (RZV) Vaccine (1 of 2) [facility] Start: 1962 Hepatitis C screening Hepatitis C An tibody [facility] Start: 1962 Tetanus + diphtheria + acellular pertussis vaccine (product) Tdap Booster [facility] Immunizations Immunization Date Immunization Notes Care Provider Fa cility 03-12-2022 SARS-CoV-2 (COVID-19 ) mRNAMUL.ORD![id number] Donta SHAISTA [facility] 03-17-2021 Influenza, injectabl e, high-dose seasonal, quadrivalent, 0.7 mL, preservative free (DJU=228) [facility] 07-15-2020 Pfizer (12+ yrs) SARS-COV-2 (COVID-19) vaccine, mRNA, spike protein, LNP, pres. free, 30 mcg/0.3mL dose (XCV=792) [facility] 06-26-2020 Pfizer (12+ yrs) SARS-COV-2 (COVID-19) vaccine, mRNA, spike protein, LNP, pres. free, 30 mcg/0.3mL dose (NFO=488) [facility] 06-23-2019 influenza, high dose seasonal, preservative-free [facility] 05-14-2017 influenza, high dose seasonal, preservative-free [facility] 05-14-2017 pneumococcal conjuga te vaccine, 13 valent [facility] 04-04-2014 influenza, injectabl e, madin cee canine kidney, preservative free Et[facility] NEGATED: Highlighted row has not occurred!06-15-2014 pneumococcal polysaccharide vaccine, 23 valent Bienvenido Barroso [facility] Comment on above: Result Note: pt had vaccine last year per Payers Date Payer Category Payer Self-pay 2022 Unknown [id number] 2022 Medicare [facility] [id number] 2022-Present [address] [place] [address] Medicare [id number] 2022 Unknown [id number] 1945 Unknown [id number] [id number] 1945 Unknown [id number] 2.16.840.1.836895.3.579.2.732 1944 Unknown [id number] 2.16.840.1.706554.3.579.2.356 1944 Unknown [id number] 2.16.840.1.326343.3.579.2.356 1944 Unknown [id number] 2.16.840.1.716756.3.579.2.356 1944 Unknown [id number] 2.16.840.1.622726.3.579.2.727 1944 Unknown [id number] 2.16.840.1.591087.3.579.2.727 1944 Unknown [id number] 2.16.840.1.429459.3.579.2.727 1944 Unknown [id number] 2.16.840.1.325312.3.579.2.72 1944 Unknown [id number] 2.16.840.1.208865.3.579.2.72 1944 Unknown [id number] 2.16.840.1.085503.3.579.2.72 1944 Unknown [id number] 2.16.840.1.884892.3.579.2.727 1944 Unknown [id number] 2.16.840.1.615870.3.579.2.727 1944 Unknown [id number] 2..840.1.328007.3.579.2.727 1944 Unknown [id number] 2.16.840.1.779393.3.579.2.727 1944 Unknown [id number] 2.840.1.884277.3.579.272 1945 Unknown [id number] 2.16.840.1.379559.3.579.2.727 Social History Date Type Detail Facility Tobacco smoking status WAIS Tobacco smoking consumption [facility] Start: 1945 Sex Assigned At [facility] Start: 04-24-2021 Tobacco smoking status Ex-smoker (finding) [facility] Sex Assigned At Male [facility] Functional Status Date Assessment Result Facility 01-21-2023 Functional Status No [facility] 01-21-2023 Functional Status [facility] 12-18-2022 Functional Status N/A [facility] 12-17-2022 Functional Status [facility] 11-29-2022 Functional Status N/A [facility] 11-28-2022 Functional Status [facility] Clinical Notes 09-07-2022 to 01-24-2023 Note Date & Type Note Facility 01-24-2023 Evaluation + Plan note Extrac gi from: Title:Discharge Note Author:New Johnson DO Date:01/24/23 Discharge To, Anticipated II - Jail Unit Discharged to - Home independently Transported [...] When Contact Information Dharmesh POTTS, Bienvenido Chavira, [facility] [place] [address]- Additional Instructions: Dementia, Lwfb-sx-Jdxz Extracted from: Title:APSO Note Author:New Johnson DO e:01/23/23 1. Generalized weakness (R53 .1: Weakness) IV fluids, trend BUN and creatinine PT/OT Currently awaiting pre-CERT for placement 2. Alzheimers disease (G30.9: Alzheimer's disease, unspecified) Continue Seroquel 3. CAD in [place] artery (I25.10: Atherosclerotic heart disease of [place] coronary artery without angina pectoris) Continue aspirin [...] Ordered: Initial Hospital Care/Day Moderate 55 Minutes 36673 Sbsq Hospital Care/Day Straight Fwd 25 Minutes 52759 2. Alzheimers disease (G30.9: Alzheimer's disease, unspecified) Continue Seroquel 3. CAD in [place] artery (I25.10: Atherosclerotic heart disease of [place] coronary artery without angina pectoris) Continue aspirin [...] (G30.9: Alzheimer's disease, unspecified) 3. CAD in [place] artery (I25.10: Atherosclerotic heart disease of [place] coronary artery without angina pectoris) 4. COPD [...] Ordered: Initial Hospital Care/Day Moderate 55 Minutes 30918 2. Alzheimers disease (G30.9: Alzheimer's disease, unspecified) Continue Seroquel 3. CAD in [place] artery (I25.10: Atherosclerotic heart disease of [place] coronary artery without angina pectoris) Continue aspirin [...] improving gait and building on physical strength. [facility]09-03-2023 NoteLake[facility]point Medical CenterComment on above:Result Comment: Electronically Signed By: New Johnson DO.candice\Date and Time Signed: 01/24/23 09:57 [id number] Hospital Discharge instructions Patient Education 01/24/2023 09:54:03 Dementia, Swhl-lw-Oiao Dementia Dementia is a condition that affects [...] Follow these instructions at home: Medicines Take ymft-ibr-qitpnkr and prescription medicines only as told by [...] find more information Alzheimer's Association: www.alz.org National Trade on Aging: www.susie.nih.gov/alzheimers World Health Organization: www.who.int [...] the National Suicide Prevention Lifeline at or 606 in the [place] This is open 24 hours a day. Text the Crisis Text Line at 906533. Summary Dementia often affects memory and thinking. [...] provider. Document Revised: 12/03/2021 Document Reviewed: 09/23/2020 [employer] Patient Education 2022 [employer]. Follow Up Care 01/21/2023 15:06:04 With:Dharmesh POTTS, SHEA Castillo Address: [address] [place] [address]- When: Unknown [facility]08-31-2023 NoteFishUniversity of Maryland Rehabilitation & Orthopaedic InstituteComment on above:Result Comment: Electronically Signed By: New Johnson DO.br\Date and Time Signed: 01/21/23 17:53 [id number] Evaluation + Plan note Extracted from: Title:Discharge Note Author:MICHAEL POTTS, Jamir Gerry e:12/20/22 stable Discharge To, Anticipated II - Jail Unit Discharged to - long-term unit SNF Discharge Diet(s): Calorie Controlled- 1800 Calorie Diet (12/20/22 09:46:00) Prescriptions alprazolam 0.5 mg Tab, 0.5 mg= 1 tab(s), Oral, Daily, PRN aspirin 81 mg Oral EC Tab, 81 mg= 1 tab(s), Oral, Daily Augmentin 875 mg oral tablet, 1 tab(s), Oral, q12hr ergocalciferol 50,000 intl units Cap, 20051 International_Unit= 1 cap(s), Oral, q7day furosemide 40 [...] BID With When Contact Information Bienvenido Barroso [employer] [place], [place] [address] (1) Additional Instructions: Call for followup [...] ultimately benefit being only slightly on the milk 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 Coronary artery disease (I25.10: Atherosclerotic heart disease of [place] coronary artery without angina pectoris) Patient had [...] hypertension) Await reconciliation [facility] med[facility]. He did have 1 blood pressure of 106 systolically in the emergency department. With the fall and suspicion of intravascular depletion will transiently hold antihypertensives if it is identified he is actually on antihypertensives at the [facility]. On a prior hospitalization he [...] recent hospitalization has been titrated at the [facility]. He was recently placed on Xanax, discontinue that at this time. Awaiting verification of meds from the [facility] 15. Encounter for deep vein [...] patient's RN it was advised that the senior living was planning on sending a copy of [...] Tests Pending * Legionella Antigen Urine 12/18/22 [facility]07-30-2023 NoteCRM entered the room to discuss dc planning. PCP, DME and insurance discussed. Patient is alert andinvolved in plan of care. Contact information given and whiteboard updated. [facility] today. CRM to follow.[facility] CenterComment on above:Result Comment: Electronically Signed By: Natalie Grant\.br\Date and Time Signed: 12/20/22 11:52 [id number] [facility] CenterComment on above: Result Comment: Electronically Signed By: Jamir MCKINNEY MD\.br\Date and Time Signed: 12/20/22 10:[id number] Hospital Discharge instructions Patient Education 12/20/2022 09:48:09 [...] a long-term care facility, such as a senior living. Having your kidneys filtered through hemodialysis in [...] hard liquor (44 mL). General instructions Take whhi-rfy-ohezvga and prescription medicines as told by your [...] are not available, use an alcohol-based hand mixing machine attendant. ?Make sure your health care providers wash [...] and water or with alcohol- based hand mixing machine attendant before and after caring for sick people. [...] bacteria common in health care settings. Take said-yll-wvkocfm and prescription medicines as told by your [...] provider. Document Revised: 05/31/2022 Document Reviewed: 05/31/2022 [employer] Patient Education 2022 [employer] Follow Up Care 12/17/2022 23:50:19 With:Bienvenido Barroso Address: [address] [place] [address] [facility] (1) When: Unknown Comments:Call for followup appointment [facility]07-28-2023 [facility] HospitalComment on above:Result Comment: Electronically Signed By: Maycol CAGLE DO\.br\Date and Time Signed: 12/18/22 06:27 [id number] [facility] HospitalComment on above:Result Comment: Electronically Signed By: Lizeth Cedeno MD\.br\Date and Time Signed: 12/02/22 12:28 [id number] Evaluation + Plan noteExtracted from: Title:Discharge Note Author:Lizeth Cedeno MD ate:12/02/22 Stable Discharge To, Anticipated II - Jail Unit Discharged to - Home with family care Transported by, Anticipated - Family Discharge Diet(s): Other: Limit fluids to 1800 ml/day (12/02/22 12:23:00) Prescriptions aspirin 81 mg Oral EC Tab, 81 mg= 1 tab(s), Oral, Daily ergocalciferol 50,000 intl units Cap, 54607 International_Unit= 1 cap(s), Oral, q7day furosemide 40 [...] Bedtime With When Contact Information Joanie Jiménez [facility] [address] [place] [address]- Business (1) Additional Instructions: HFpEF Dave Tolley [address] [place] [address]- Business (1) Additional Instructions: Cog impariment, Alzhiemer's Bienvenido Barroso In [address] [place] [address]- Business (1) Additional Instructions: Extracted from: Title:UPDATE [...] of CAD and previous coronary interventions in [place] with no indication of recurrent CAD, would [...] as able, pulm avery. -check echo Ordered: [facility] Hospital Care/Day High 50 Minutes 00771 2. Acute on chronic diastolic heart failure (I50.33: Acute on chronic diastolic (congestive) heart failure) c/w spironolactone and lasix IV 40mg qd -strict I/Os and daily weight - last echo was done 2014 with EF of 50%. will recheck this visit Ordered: [facility] Hospital Care/Day High 50 Minutes 98688 3. COPD without exacerbation (J44.9: Chronic obstructive pulmonary disease, unspecified) Ordered: [facility] Hospital Care/Day High 50 Minutes 17128 4. Weakness (R53.1: Weakness) -pt/ot Ordered: [facility] Hospital Care/Day High 50 Minutes 89351 5. Sinus bradycardia (R00.1: Bradycardia, unspecified) baseline. last EKG similar. -pt had decreased HR overnight so BB was held. -continue to monitor on tele Ordered: [facility] Hospital Care/Day High 50 Minutes 31403 6. Coronary artery disease (I25.10: Atherosclerotic heart disease of [place] coronary artery without angina pectoris) -c/w ASA Ordered: [facility] Hospital Care/Day High 50 Minutes 97719 7. Obstructive sleep apnea (G47.33: Obstructive sleep apnea (adult) (pediatric)) -CPAP qHS Ordered: [facility] Hospital Care/Day High 50 Minutes 29170 8. Pulmonary hypertension (I27.20: Pulmonary hypertension, unspecified) c/w spironolactone 50mg -lasix 40 mg iv qd -strict I/Os daily weights -check echo Ordered: [facility] Care/Day High 50 Minutes 41746 9. Abdominal pain (R10.9: Unspecified abdominal pain) resolved no complaints this morning Ordered: [facility] Hospital Care/Day High 50 Minutes 56169 10. Hypertension (I10: Essential (primary) hypertension) c/w spironolactone Ordered: [facility] Hospital Care/Day High 50 Minutes 58112 11. Diabetes (E11.9: Type 2 diabetes mellitus without complications) BGT qACHS -c/w glimepiride Ordered: [facility] Care/Day High 50 Minutes 42503 12. Hyperlipidemia (E78.5: Hyperlipidemia, unspecified) -hold statin due to elevated CK Ordered: [facility] Hospital Care/Day High 50 Minutes 01116 13. Chronic anemia (D64.9: Anemia, unspecified) monitor Ordered: [facility] Hospital Care/Day High 50 Minutes 81220 14. BPH (benign prostatic hyperplasia) (N40.0: Benign prostatic hyperplasia without lower urinary tract symptoms) c/w tamsulosin Ordered: [facility] Hospital Care/Day High 50 Minutes 94018 15. Dementia (F03.90: Unspecified dementia, unspecified severity, without behavioral disturbance, psychotic disturbance, mood disturbance, and anxiety) -c/w seroquel 25mg qHS Ordered: [facility] Hospital Care/Day High 50 Minutes 77115 16. Encounter for deep vein thrombosis (DVT) prophylaxis (Z29.9: Encounter for prophylactic measures, unspecified) Ordered: [facility] Hospital Care/Day High 50 Minutes 70573 17. Elevated CK (R74.8: Abnormal levels of other serum enzymes) -CK 1000 this morning. will monitor and hold statin - will not give fluids due to current diuresis Ordered: [facility] Hospital Care/Day High 50 Minutes 31895 COPD with acute exacerbation (J44.1: Chronic obstructive [...] artery disease (I25.10: Atherosclerotic heart disease of [place] coronary artery without angina pectoris) Continue aspirin, [...] Scheduled Provider:Donta NOONAN MD Location:Extended Care Appointment Type:[facility]07-10-2023 NoteOT [facility] six clicks score 15/24 = SNF. Patient requires assist w/ all transfers and self care at this time. Inpatient OT services to follow daily to progress w/ functional skills.[facility]07-09-2023 NotePT Evaluation completed with an [facility] score of 16/24. Pt requires Min A for bed mobility and min/Mod A to stand. Pt was able to take two sidesteps. Will follow daily, but SN[facility] HospitalComment on above:Result Comment: Electronically Signed By: Maycol CAGLE DO\.br\Date and Time Signed: 11/29/22 01:33 [id number] Hospital Discharge instructions Follow Up Care 11/28/2022 17:10:04 With:Joanie Jiménez Address: [facility] [address], [address] [place] [address]- Business (1) When: Unknown Comments:HFpEF With:Dave Cruz Address: [address] [place] [address] Business (1) When: Unknown Comments:Cog impariment, Alzhiemer's With:Bienvenido Barroso Address: [address] [place] [address] Business (1) When: Unknown [facility]05-20-2023 [facility] HospitalComment on above:Result Comment: Electronically Signed By: Adeline COLEMAN\.br\Date and Time Signed: 10/10/22 17:53 EDT\.br\Electronically Co- Signed By: Ganehs Minaya MD\.br\Date and Time Co-Signed: 10/10/22 18:51 EDT 09-27-2022 [facility] HospitalComment on above:Result Comment: Electronically Signed By: Adeline COLEMAN\.br\Date and Time Signed: 09/26/22 21:20 EDT\.br\Electronically Co-Signed By: Rei POTTS, Ganesh Pressley\.br\Date and Time Co-Signed: 09/27/22 08:00 [id number] History of Present illness Narrative* Marcelino Echavarria MD - 09/07/2022 1:12 AM EDT Images from the original note were not included. EMERGENCY TRIAGE, TREAT AND TRANSPORT (ET3) DOCUMENTATION OF TELEHEALTH VISIT Date / Time: 09/06/20222146 Name: Clyde Humphrey : 1945 SSN: [id number] EMS Agency: [facility] [x] Verbal consent obtained [...] note No data available for this section [facility] Diagnosis Fall, initial encounter- Primary [facility] No data available for this section [facility] No data available for this section [facility] Summary Purpose Family History No Family [...] section and content) DATE CREATED AUTHOR 06/26/2021 [facility] dical Specialist DATE CREATED AUTHOR AUTHOR'S ORGANIZ ATION 09/30/2022 [facility] DATE CREATED AUTHOR AUTHOR'S ORGANIZ ATION 12/05/2022 [facility] DATE CREATED AUTHOR AUTHOR'S ORGANIZ ATION 03/26/2023 [facility] DATE CREATED AUTHOR AUTHOR'S ORGANIZ ATION 05/04/2023 [facility] Reason for Visit (unrecogniz ed section and content) Reason Comments Fall Patient Care team informatio n (unrecognized section and content) Personnel Name: Dharmesh POTTS, Bienvenido Chavira Address: Address: [address] [place] [address]- [place] Name: Andrew Rodriguez Personnel Name: Bienvenido Barroso MD Address: Address: [address] [place] [address] Name: Andrew Rodriguez Patti Personnel Name: Bienvenido Barroso MD Address: Address: [address] [place] [address] Name: Andrew Rodriguez Patti Personnel Name: Bienvenido Barroso MD Address: Address: [address] [place] [address] Name: Andrew Rodriguez Personnel Name: Bienvenido Barroso MD Address: Address: [address] [place] [address] Name: Andrew Rodriguez Personnel Name: Bienvenido Barroso MD Address: Address: [address] [place] [address] Name: Andrew Rodriguez Personnel Name: Bienvenido Barroso MD Address: Address: [address] [place] [address] Name: Andrew Rodriguez Personnel Name: Bienvenido Barroso MD Address: Address: [address] [place] [address] Name: Luis Gil LPN Name: Jackson Rodriguezan [...] BE BASED ON THE PRIMARY CLINICAL RECORDS. [employer] provides no warranty or guarantee of the accuracy or completeness of information in this document.
[2024-01-03 09:35] LABS: Basophils Percent Auto 0.3 % (0.2-2.0); Eosinophils Absolute Auto 0.1 10^3/uL (0.0-0.7); Eosinophils Percent Auto 0.6 % (0.9-7.0); Hematocrit 39.5 % (42.0-54.0); Hemoglobin 12.7 g/dL (14.0-18.0); Immature Granulocytes Abs Auto 0.12 10^3/uL (0.00-0.03); Lymphocytes Percent Auto 8.5 % (20.5-60.0); Mean Corpuscular HGB Conc 32.2 g/dL (29.9-35.2); Mean Corpuscular Hemoglobin 28.7 pg (25.9-34.0); Mean Corpuscular Volume 89.2 fL (80.0-94.0); Mean Platelet Volume 11.4 fL (9.5-13.5); Monocytes Absolute Auto 0.6 10^3/uL (0.3-0.8); Monocytes Percent Auto 4.7 % (1.7-12.0); Neutrophils Percent Auto 84.9 % (43.0-75.0); Platelet Count 286 10^3/uL (150-450); Red Blood Count 4.43 10^6/uL (4.70-6.10); Red Cell Distribution Width 14.1 % (11.0-15.0); White Blood Count 11.8 10^3/uL (4.0-11.0)
[2024-01-03 11:08] LABS: Anion Gap 13.3; BUN Creatinine Ratio 22.9; Calcium 9.6 mg/dL (8.5-10.1); Carbon Dioxide 29.9 mmol/L (21.0-32.0); Chloride 94 mmol/L (98-107); Estimated GFR (African America >60 (>=60); Estimated GFR (Non-African Ame 53 (>=60); Glucose 282 mg/dL (74-106); Potassium 4.2 mmol/L (3.5-5.1); Sodium 133 mmol/L (136-145)
== END 2024-01-03 05:59 | disposition home or self-care (01) ==
LOC: LAB 05:58
PROVIDERS: PCP Family Medicine; Visit Provider Family Medicine
DX: J18.9 Pneumonia, unspecified organism (principal); Z51.81 Encounter for therapeutic drug level monitoring; Z79.899 Other long term (current) drug therapy
CPT/HCPCS: 36415; 80048; 85025

== ENCOUNTER 2024-01-03 10:16 | Observation (INO) | payer OTHER, SELFPAY ==
[2024-01-03] VITALS (46 sets, daily range): BP systolic 126–176; BP diastolic 55–86; PULSE 38–96; TEMP 36.3–37.1; O2SAT 88–96; BMI 40.2; BMI 34.0
--- NOTE | 2024-01-03 10:25 | CT_ITS ---
[address] [address] Patient Name: CLYDE MARINA MRN: [id number] date: 1945 Sex: M Assigned Patient Location: ER Current Patient Location: [facility] Accession/Order Number: [id number] Exam Date: 01/03/2024 11:45 Report Date: 01/03/2024 12:28 At the request of: YESENIA WHITE Procedure: CT head/brain wo con EXAM: CT head/brain wo con, CT cervical spine wo con CLINICAL INDICATION: head injury COMPARISON: CT head 01/31/2023 TECHNIQUE: Axial CT images of the brain and cervical spine were obtained without contrast. Coronal and sagittal reformats were obtained. Dose reduction techniques were achieved by using automated exposure control and/or adjustment of mA and/or kV according to patient size and/or use of iterative reconstruction technique. FINDINGS: No intracranial hemorrhage, extra-axial fluid collection, hydrocephalus, midline shift, or acute large vessel territory infarction. No other mass effect. Patchy and confluent periventricular and subcortical hypoattenuation is likely on the basis of chronic microvascular angiopathic changes. Moderate symmetric global volume loss without lobar predominance. Commensurate prominence of the ventricular system. Basal cisterns are patent. No calvarial fracture. Mild left frontal scalp edema with small hematoma. Paranasal sinuses are well aerated. Bilateral mastoidectomy changes. Evaluation is of the cervical spine limited due to patient motion artifact. Trauma: No definite fracture, traumatic malalignment, facet dislocation, or discrete epidural hemorrhage. Alignment: Normal craniocervical and cervicothoracic junctions. Straightening of the physiologic cervical lordosis likely relates at least in part to patient positioning. Vertebral Body Heights: Maintained. Spondylotic Changes: Multilevel spondylotic changes include varying degrees of intervertebral disc height loss, osteophytic ridging, endplate sclerosis, and facet/uncovertebral joint hypertrophy. Soft Tissues: Grossly normal. Scattered vascular calcifications. Other: Clear visualized lung apices. Airway is patent. CT/CT head/brain wo con IMPRESSION: 1. No acute intracranial process. 2. Mild left frontal scalp edema with small hematoma. 3. Multilevel cervical spondylotic changes. Electronically authenticated by: DEVANG WANG Date: 01/03/2024 12:28
--- NOTE | 2024-01-03 10:25 | ECG_ITS ---
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
--- NOTE | 2024-01-03 10:27 | ED.GENADUL1 ---
HPI HPI - General Adult General Chief complaint: Fall Stated complaint: FALL, SHOULDER PAIN Time Seen by Provider: 01/03/24 10:18 Source: medical record Mode of arrival: ambulance History of Present Illness HPI narrative: 1-year-old male presents to the emergency department after an apparent syncopal episode. Apparently he was on the toilet and he fell and struck the bridge of his nose causing a laceration. The patient is not able to provide us any history. He thinks he is at home. According to the EHR he has a history of dementia and behavioral problems. This occurred just before coming into the emergency department and he was transported here by paramedics who noted that he was frequently screaming and yelling. Additional history was obtained. A emergency manager who works here at this hospital happened to be at the [facility] drawing the patient's blood when he had a witnessed seizure, witnessed by her. She reports it lasted 5 minutes. She is well acquainted with seizures and describes a generalized seizure. Related Data Home Medications ?Medication ?Instructions ?Recorded ?Confirmed acetaminophen 325 mg capsule 325 mg PO Q6H PRN fever or pain 01/31/23 01/31/23 aspirin 81 mg capsule 81 mg PO DAILY 01/31/23 01/31/23 citalopram 20 mg tablet (Celexa) 20 mg PO DAILY 01/31/23 01/31/23 furosemide 40 mg tablet 40 mg PO DAILY 01/31/23 01/31/23 lovastatin 40 mg tablet,extended 40 mg PO DAILY 01/31/23 01/31/23 release 24 hr (Altoprev) metformin 1,000 mg 24 hr 1,000 mg PO DAILY 01/31/23 01/31/23 tablet,extended release (gastric reten.) (Glumetza) quetiapine 25 mg tablet (Seroquel) 25 mg PO DAILY 01/31/23 01/31/23 tamsulosin 0.4 mg capsule (Flomax) 0.4 mg PO DAILY 01/31/23 01/31/23 Allergies Allergy/AdvReac Type Severity Reaction Status Date / Time No Known Drug Allergies Allergy Verified 02/11/23 00:07 Opioid HPI Opioid Management Most Recent Opioid Data: No Data to Display Review of Systems ROS Narrative Not obtainable, psychiatric disorder Exam Narrative Exam Narrative: Nurses note and vital signs reviewed and patient is not hypoxic. General: The patient is sitting upright on the cart. He is in no respiratory distress Skin: Warm, dry, no pallor noted. There is no rash noted. Head: Normocephalic, transverse laceration present on the bridge of his nose, no active bleeding. No epistaxis Eye: Normal conjunctiva, no drainage Ears, Nose, Mouth, and Throat: oral mucosa is moist. Nares patent. Cardiovascular: Regular Rate and Rhythm Respiratory: Patient is in no distress, no accessory muscle use, lungs are clear to auscultation, no wheezing, rales or rhonchi Back: non-tender, no CVA tenderness bilaterally to percussion. GI: Obese soft and nontender Musculoskeletal: No deformity to his extremities and joints all seem to have good range of motion actively Neurological: Awake and alert. He knows his name. He does not know where he is or what year it is. Psychiatric: He is trying to be cooperative. Constitutional Vital Signs, click to edit/add: Last Vital Signs Temp 97.4 F L 01/03/24 10:18 Pulse 82 01/03/24 13:00 Resp 24 H 01/03/24 13:00 BP 139/85 01/03/24 12:55 Pulse Ox 94 L 01/03/24 13:00 O2 Del Method Room Air 01/03/24 13:00 Course Vital Signs Vital signs: Vital Signs Temperature 97.4 F L 01/03/24 10:18 Pulse Rate 67 01/03/24 10:18 Respiratory Rate 20 01/03/24 10:18 Blood Pressure 144/58 H 01/03/24 10:18 Pulse Oximetry 94 L 01/03/24 10:18 Oxygen Delivery Method Room Air 01/03/24 10:18 Temperature 97.4 F L 01/03/24 10:18 Pulse Rate 82 01/03/24 13:00 Respiratory Rate 24 H 01/03/24 13:00 Blood Pressure 139/85 01/03/24 12:55 Pulse Oximetry 94 L 01/03/24 13:00 Oxygen Delivery Method Room Air 01/03/24 13:00 Medical Decision Making MDM Narrative Medical decision making narrative: CT of the brain and C-spine along with shoulder x-rays are negative. Laboratory analysis is nonspecific. He was somewhat agitated here in the emergency department and he was given 1 mg of IV Ativan twice which resulted in appropriate mild sedation. I suspect that the patient has new onset of seizures and he has not had one here in the emergency department. He has a superficial laceration to the bridge of his nose and Steri-Strips were applied. Differential Diagnosis Differential Diagnosis: Syncope, fall, intracranial hemorrhage, C-spine fracture, seizure Lab Data Lab results reviewed: Yes I reviewed the patient's lab results Labs: Lab Results 01/03/24 Range/Units 11:08 WBC 12.6 H (4.0-11.0) 10^3/uL RBC 4.26 L (4.70-6.10) 10^6/uL Hgb 12.3 L (14.0-18.0) g/dL Hct 37.6 L (42.0-54.0) % MCV 88.3 (80.0-94.0) fL MCH 28.9 (25.9-34.0) pg MCHC 32.7 (29.9-35.2) g/dL RDW 14.0 (11.0-15.0) % Plt Count 241 (150-450) 10^3/uL MPV 10.9 (9.5-13.5) fL Neut % (Auto) 82.9 H (43.0-75.0) % Lymph % (Auto) 7.5 L (20.5-60.0) % [place] % (Auto) 7.7 (1.7-12.0) % Eos % (Auto) 0.7 L (0.9-7.0) % Baso % (Auto) 0.2 (0.2-2.0) % Neut # (Auto) 10.4 H (1.4-6.5) 10^3/uL Lymph # (Auto) 0.9 L (1.2-3.8) 10^3/uL [place] # (Auto) 1.0 H (0.3-0.8) 10^3/uL Eos # (Auto) 0.1 (0.0-0.7) 10^3/uL Baso # (Auto) 0.0 (0.0-0.1) 10^3/uL Abs Immat Gran (auto) 0.13 H (0.00-0.03) 10^3/uL Imm/Tot Granulo (auto) 1.0 H (0.0-0.5) % Sodium 132 L (136-145) mmol/L Potassium 4.5 (3.5-5.1) mmol/L Chloride 95 L (98-107) mmol/L Carbon Dioxide 31.5 (21.0-32.0) mmol/L Anion Gap 10.0 BUN 34.0 H (7.0-18.0) mg/dL Creatinine 1.16 (0.70-1.30) mg/dL Est GFR ( Amer) >60 (>=60) Est GFR (Non-Af Amer) >60 (>=60) BUN/Creatinine Ratio 29.3 Glucose 234 H (74-106) mg/dL Calcium 9.8 (8.5-10.1) mg/dL Troponin I High Sens 42.7 (4.0-76.1) pg/mL Imaging Data CT scan - head: Radiologist's impression: ITS Impressions Head CT 01/03/24 10:25 IMPRESSION: 1. No acute intracranial process. 2. Mild left frontal scalp edema with small hematoma. 3. Multilevel cervical spondylotic changes. Electronically authenticated by: DEVANG WANG Date: 01/03/2024 12:[address] 01/03/24 12:02 IMPRESSION: 1. No acute intracranial process. 2. Mild left frontal scalp edema with small hematoma. 3. Multilevel cervical spondylotic changes. Electronically authenticated by: DEVANG WANG Date: 01/03/2024 12:28 Chest X-Ray 01/03/24 12:45 IMPRESSION: Clear lungs Electronically authenticated by: MIS ALVAREZ Date: 01/03/2024 13:04 Shoulder X-Ray 01/03/24 12:45 IMPRESSION: No acute fracture Electronically authenticated by: MIS ALVAREZ Date: 01/03/2024 13:06 ECG Data Attestation: I personally reviewed and interpreted this ECG as follows: (EKG on my interpretation shows normal sinus rhythm with a PVC. No acute change.) Discharge Plan Discharge Stand Alone Forms: Portal Instructions Chief Complaint: Fall Clinical Impression: New onset seizure, Laceration of nose Patient Disposition: Admitted as Observation Time of Disposition Decision: 15:05 Condition: Good Prescriptions / Home Meds: No Action acetaminophen 325 mg capsule 325 mg PO Q6H PRN (Reason: fever or pain) aspirin 81 mg capsule 81 mg PO DAILY citalopram [Celexa] 20 mg tablet 20 mg PO DAILY furosemide 40 mg tablet 40 mg PO DAILY Altoprev 40 mg tablet extended release 24 hr 40 mg PO DAILY metformin [Glumetza] 1,000 mg tablet,ER kapil.retention 24 hr 1,000 mg PO DAILY quetiapine [Seroquel] 25 mg tablet 25 mg PO DAILY tamsulosin [Flomax] 0.4 mg capsule 0.4 mg PO DAILY Print Language: Slovak Referrals: HEMALATHA MORAN [Primary Care Provider] - 1 week
[2024-01-03] MEDS: LORAZEPAM 2 MG/ML VIAL 1 MG IV ×2 (11:14→14:20)
[2024-01-03 11:16] LABS: Basophils Percent Auto 0.2 % (0.2-2.0); Eosinophils Absolute Auto 0.1 10^3/uL (0.0-0.7); Eosinophils Percent Auto 0.7 % (0.9-7.0); Hematocrit 37.6 % (42.0-54.0); Hemoglobin 12.3 g/dL (14.0-18.0); Immature Granulocytes Abs Auto 0.13 10^3/uL (0.00-0.03); Lymphocytes Absolute Auto 0.9 10^3/uL (1.2-3.8); Lymphocytes Percent Auto 7.5 % (20.5-60.0); Mean Corpuscular HGB Conc 32.7 g/dL (29.9-35.2); Mean Corpuscular Hemoglobin 28.9 pg (25.9-34.0); Mean Corpuscular Volume 88.3 fL (80.0-94.0); Mean Platelet Volume 10.9 fL (9.5-13.5); Monocytes Percent Auto 7.7 % (1.7-12.0); Neutrophils Absolute Auto 10.4 10^3/uL (1.4-6.5); Neutrophils Percent Auto 82.9 % (43.0-75.0); Platelet Count 241 10^3/uL (150-450); Red Blood Count 4.26 10^6/uL (4.70-6.10); White Blood Count 12.6 10^3/uL (4.0-11.0)
[2024-01-03 11:37] LABS: BUN Creatinine Ratio 29.3; Calcium 9.8 mg/dL (8.5-10.1); Carbon Dioxide 31.5 mmol/L (21.0-32.0); Chloride 95 mmol/L (98-107); Estimated GFR (African America >60 (>=60); Estimated GFR (Non-African Ame >60 (>=60); Glucose 234 mg/dL (74-106); Potassium 4.5 mmol/L (3.5-5.1); Sodium 132 mmol/L (136-145); Troponin I High Sensitivity 42.7 pg/mL (4.0-76.1)
--- NOTE | 2024-01-03 12:02 | CT_ITS ---
[address] [address] Patient Name: CLYDE MARINA MRN: [id number] date: 1945 Sex: M Assigned Patient Location: ER Current Patient Location: .[facility] Accession/Order Number: [id number] Exam Date: 01/03/2024 11:45 Report Date: 01/03/2024 12:28 At the request of: YESENIA WHITE Procedure: CT cervical spine wo con EXAM: CT head/brain wo con, CT cervical spine wo con CLINICAL INDICATION: head injury COMPARISON: CT head 01/31/2023 TECHNIQUE: Axial CT images of the brain and cervical spine were obtained without contrast. Coronal and sagittal reformats were obtained. Dose reduction techniques were achieved by using automated exposure control and/or adjustment of mA and/or kV according to patient size and/or use of iterative reconstruction technique. FINDINGS: No intracranial hemorrhage, extra-axial fluid collection, hydrocephalus, midline shift, or acute large vessel territory infarction. No other mass effect. Patchy and confluent periventricular and subcortical hypoattenuation is likely on the basis of chronic microvascular angiopathic changes. Moderate symmetric global volume loss without lobar predominance. Commensurate prominence of the ventricular system. Basal cisterns are patent. No calvarial fracture. Mild left frontal scalp edema with small hematoma. Paranasal sinuses are well aerated. Bilateral mastoidectomy changes. Evaluation is of the cervical spine limited due to patient motion artifact. Trauma: No definite fracture, traumatic malalignment, facet dislocation, or discrete epidural hemorrhage. Alignment: Normal craniocervical and cervicothoracic junctions. Straightening of the physiologic cervical lordosis likely relates at least in part to patient positioning. Vertebral Body Heights: Maintained. Spondylotic Changes: Multilevel spondylotic changes include varying degrees of intervertebral disc height loss, osteophytic ridging, endplate sclerosis, and facet/uncovertebral joint hypertrophy. Soft Tissues: Grossly normal. Scattered vascular calcifications. Other: Clear visualized lung apices. Airway is patent. CT/CT cervical spine wo con IMPRESSION: 1. No acute intracranial process. 2. Mild left frontal scalp edema with small hematoma. 3. Multilevel cervical spondylotic changes. Electronically authenticated by: DEVANG WANG Date: 01/03/2024 12:28
--- NOTE | 2024-01-03 12:45 | XR_ITS ---
The [address] [address] Patient Name: CLYDE MARINA MRN: [id number] date: 1945 Sex: M Assigned Patient Location: ER Current Patient Location: ER Accession/Order Number: [id number] Exam Date: 01/03/2024 12:35 Report Date: 01/03/2024 13:04 At the request of: YESENIA WHITE Procedure: XR chest 1V EXAMINATION: XR chest 1V HISTORY: Syncope COMPARISON: 01/31/2023 TECHNIQUE: AP portable FINDINGS: LUNGS: No significant pulmonary parenchymal abnormalities. VASCULATURE: No increased pulmonary vasculature. PLEURA: No pneumothorax, effusion, or pleural thickening. CARDIAC: Prominent heart size possibly related to technique MEDIASTINUM: No visible mass or adenopathy. Atherosclerosis BONES: No fracture or visible bone lesion. OTHER: Negative. XR/XR chest 1V IMPRESSION: Clear lungs Electronically authenticated by: MIS ALVAREZ Date: 01/03/2024 13:04
--- NOTE | 2024-01-03 12:45 | XR_ITS ---
The [address] [address] Patient Name: CLYDE MARINA MRN: [id number] date: 1945 Sex: M Assigned Patient Location: ER Current Patient Location: ER Accession/Order Number: [id number] Exam Date: 01/03/2024 12:35 Report Date: 01/03/2024 13:06 At the request of: YESENIA WHITE Procedure: XR shoulder ERIC min 2V EXAMINATION: XR shoulder ERIC min 2V HISTORY: fall COMPARISON: No relevant comparison available. FINDINGS: RIGHT FINDINGS: BONES: No acute fracture or spondylolisthesis. Mild degenerative changes of the acromioclavicular and glenohumeral joints SOFT TISSUES: Negative. No visible soft tissue swelling. OTHER: Negative. LEFT FINDINGS: BONES: No acute fracture or spondylolisthesis. Mild degenerative changes of the acromioclavicular and glenohumeral joints SOFT TISSUES: Negative. No visible soft tissue swelling. OTHER: Negative. XR/XR shoulder ERIC min 2V IMPRESSION: No acute fracture Electronically authenticated by: MIS ALVAREZ Date: 01/03/2024 13:06
--- NOTE | 2024-01-03 12:51 | PC.NURSE ---
bridge of nose cleansed with water. Steristrips applied.
--- NOTE | 2024-01-03 12:54 | PC.NURSE ---
CT reports the IV came out and pt had pulled it. Out. #22 ga IV restarted with 2 attempts to left hand. IV site wrapped with jade bandage to protect the site.
[2024-01-03] MEDS: ALBUTEROL SULFATE 2.5 MG/3 ML VIAL NEB IH (13:02)
[2024-01-03 16:28] LABS: Glucometer 187 mg/dL (74-106)
--- NOTE | 2024-01-03 17:13 | PC.NURSE ---
neuro consult called to dr higuera @ this time per dr saunders order
[2024-01-03 17:14] LABS: Bilirubin Urine NEGATIVE (NEGATIVE); Blood Urine NEGATIVE (NEGATIVE); Clarity Urine CLEAR (CLEAR); Color Urine LT. YELLOW (YELLOW); Glucose Urine UA NEGATIVE (NEGATIVE); Ketones Urine NEGATIVE (NEGATIVE); Leukocyte Esterase Urine NEGATIVE (NEGATIVE); Nitrite Urine NEGATIVE (NEGATIVE); Protein Urine TRACE mg/dL (NEG/TRACE); Urobilinogen Urine 0.2 EU/dL (0.2-1.0)
[2024-01-03 17:21] LABS: Bacteria Urine NONE SEEN #/HPF (NONE SEEN); Cast Seen? NONE SEEN #/LPF (NONE SEEN); Crystals Seen? None Seen #/HPF (None Seen); Mucus Urine NONE SEEN (NONE SEEN); RBC Urine NONE SEEN #/HPF (0-2); Squamous Epithelial Cell Urine RARE #/LPF (NONE/RARE); WBC Urine NONE SEEN #/HPF (NONE SEEN)
[2024-01-03 17:30] LABS: Magnesium 1.1 mg/dL (1.8-2.4)
[2024-01-03 17:31] LABS: Thyroid Stimulating Hormone 2.851 uIU/mL (0.358-3.740)
[2024-01-03 17:46] LABS: Ammonia 21 umol/L (11-32)
--- NOTE | 2024-01-03 18:44 | P.HP_ITS ---
HPI H&P: HPI History of Present Illness Chief complaint: FALL,SHOULDER PAIN, NEW ONSET SEIZURE/LAC NOSE Narrative: Patient had a care facility, has had several falls lately, today fell again, somebody else that was there visiting different family witnessed the event, this person is familiar with the person having seizures and she felt for approximately 5 minutes the gentleman was having a seizure. No history of seizure disorder that I could find in his records. Patient admitted for workup and treatment of same When I saw patient up on the medical surgical floor, although extremely cooperative with answering questions, was awake and did seem to answer questions appropriately. No focal neurological deficits Opioid HPI Opioid Management Most Recent Pain and Opioid Data: Last Pain Assessment 01/03/24 18:29 Last ORT Total Score 0 01/03/24 16:51 Last ORT Risk Category Low Risk 01/03/24 16:51 Review of Systems ROS Status of ROS 10 or more systems reviewed and unremark able except as noted in history and below PFSH PFS Medical History (Updated 01/03/24 @ 16:05 by Pia Segura LPN) Sleep apnea ?G47.30 - Sleep apnea, unspecified (ICD-10) COPD (chronic obstructive pulmonary disease) ?J44.9 - Chronic obstructive pulmonary disease, unspecified (ICD-10) Surgical History (Updated 01/03/24 @ 16:01 by Pia Segura LPN) H/O heart artery stent ?Z95.5 - Presence of coronary angioplasty implant and graft (ICD-10) Family History (Updated 01/03/24 @ 16:02 by Pia Segura LPN) Mother Family history of CHF (congestive heart failure) Family history of COPD (chronic obstructive pulmonary disease) Father Family history of CHF (congestive heart failure) Brother Family history of CHF (congestive heart failure) Family history of diabetes mellitus Family history of myocardial infarction Social History (Updated 01/03/24 @ 16:04 by Pia Segura LPN) Within the past year, how often did you have a drink containing alcohol: never Within the past year, how many standard drinks containing alcohol did you have on a typical day: 1 or 2 Within the past year, how often did you have six or more drinks on one occasion: never Total score: 0 Score interpretation: A score less than 4 is consistent with normal alcohol consumption. 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 Known occupational exposures/hazards: No Highest level of school completed/degree received: high school graduate Do you want help with school or training: No Are you now , , , , never or living with a partner: In a typical week, how many times do you talk on the telephone with family, friends, or neighbors: once per week How often do you get together with friends or relatives: once per week How often do you attend religious or adventism services: 4 or more times per year Do you belong to any clubs or organizations such as religious groups unions, [employer] or athletic groups, or school groups: no Total score: 2 Score interpretation: A score of greater than or equal to 2 indicates the lowest level of social isolation. Little interest or pleasure in doing things: not at all Feeling down, depressed, or hopeless: not at all Feel stressed/tense/nervous/anxious/difficulty sleeping: not at all Due to disability, difficulty making decisions: No Do you think of yourself as: straight/heterosexual Gender Identity: male Meds Home Medications and Allergies Home Medications ?Medication ?Instructions ?Recorded ?Confirmed ?Type acetaminophen 325 mg capsule 650 mg PO Q6H PRN fever or pain 01/31/23 01/03/24 History citalopram 20 mg tablet (Celexa) 20 mg PO DAILY 01/31/23 01/03/24 History furosemide 40 mg tablet 40 mg PO DAILY 01/31/23 01/03/24 History lovastatin 40 mg tablet,extended 40 mg PO QPM 01/31/23 01/03/24 History release 24 hr (Altoprev) quetiapine 25 mg tablet (Seroquel) 25 mg PO DAILY 01/31/23 01/03/24 History tamsulosin 0.4 mg capsule (Flomax) 0.4 mg PO BID 01/31/23 01/03/24 History albuterol sulfate 2.5 mg/3 mL 2.5 mg inhalation Q6H PRN 01/03/24 01/03/24 History (0.083 %) solution for nebulization shortness of breath or wheezing aspirin 81 mg tablet,delayed 81 mg PO DAILY 01/03/24 01/03/24 History release (Adult Low Dose Aspirin) cetirizine 10 mg tablet (All Day 10 mg PO DAILY PRN allergy symptoms 01/03/24 01/03/24 History Allergy (cetirizine)) cholecalciferol (vitamin D3) 50 50 mcg PO DAILY 01/03/24 01/03/24 History mcg (2,000 unit) tablet doxycycline hyclate 100 mg tablet 100 mg PO Q12H 01/03/24 01/03/24 History metformin 500 mg tablet,extended 1,000 mg PO BID 01/03/24 01/03/24 History release 24 hr nystatin 100,000 unit/gram topical 1 applic topical TID 01/03/24 01/03/24 History powder spironolactone 25 mg tablet 25 mg PO DAILY 01/03/24 01/03/24 History Allergies Allergy/AdvReac Type Severity Reaction Status Date / Time No Known Drug Allergies Allergy Verified 02/11/23 00:07 Exam Constitutional Vital Signs, click to edit/add: Last Vital Signs Temp 97.5 F L 01/03/24 16:54 Pulse 60 01/03/24 16:54 Resp 18 01/03/24 16:54 BP 126/68 01/03/24 16:54 Pulse Ox 91 L 01/03/24 16:54 O2 Del Method Room Air 01/03/24 16:54 Documenting provider has reviewed patient's vital signs: yes Common normals: no apparent distress HENDE Common normals: normocephalic; head/scalp not atraumatic (Laceration over bridge of nose) Chest Common normals: inspection of chest normal and palpation of chest normal Respiratory Common normals: no retractions and no use of accessory muscles Cardio Common normals: regular rate and regular rhythm GI Common normals: Normal to inspection, nondistended, normoactive bowel sounds present and soft to palpation Extremity Common normals: abnormal to inspection (Bandage on left hand) Results Labs Labs: Short CBC 01/03/24 Range/Units 11:08 WBC 12.6 H (4.0-11.0) 10^3/uL Hgb 12.3 L (14.0-18.0) g/dL Hct 37.6 L (42.0-54.0) % Plt Count 241 (150-450) 10^3/uL BMP 01/03/24 11:08 Sodium 132 L Potassium 4.5 Chloride 95 L Carbon Dioxide 31.5 BUN 34.0 H Creatinine 1.16 Glucose 234 H Calcium 9.8 Urine 01/03/24 Range/Units 11:40 Urine Color Lt. yellow (YELLOW) Urine Clarity Clear (CLEAR) Urine pH 6.0 (5.0-9.0) Ur Specific [place]ote 1.020 (1.005-1.025) Urine Protein Trace (NEG/TRACE) mg/dL Urine Glucose (UA) Negative (NEGATIVE) mg/dL Assessment and Plan Assessment and Plan (1) Laceration of nose: (2) New onset seizure: (3) Dementia with behavioral disturbance: (4) Behavioral problem: Plan Admission findings: Head injury, laceration to the face, workup unremarkable other than hyponatremia, hyperglycemia, leukocytosis -discrete sounds like new onset seizures. Patient admitted for workup and treatment of same New onset seizure: Consult to neurology, will change his Seroquel to Risperdal which has slightly less potential for seizures. Check EEG. Unlikely to be able to keep him still enough for an MRI scan Elevated BNP with chronic combined congestive heart failure-no significant peripheral edema his lungs to me sounded fairly clear. Will maintain current oral medications, check echocardiogram cardiogram, repeat labs in AM Hyperglycemia-this is likely secondary to poorly controlled diabetes mellitus l ikely secondary to patient's oral intake. Will monitor closely here. Iron deficiency EMEA-monitor daily Hyponatremia likely secondary to the hyperglycemia. Monitor daily Dementia with behavioral disturbance-change medications as outlined above COPD-maintain home regiment, no cough throughout the evaluation Admission status: Patient with possible new onset seizure. Maintain observation status is medically necessary treatment may span just 1 midnight. Depending on workup may need to be admitted to inpatient status tomorrow if medically necessary treatment will span 2 midnights
--- NOTE | 2024-01-03 18:49 | CA_ITS ---
Patient Name: CLYDE MARINA MR#: [id number] : 1945 Exam Date: 01/04/2024 Ordering Doctor: DR Kristofer Brown . ECHOCARDIOGRAM REPORT PROCEDURE: CA ECHO DOPPLER COMPLETE INDICATIONS: elevated BNP, COPD, chronic HCF COMPARISON: None. DESCRIPTION: COMPLETE ECHOCARDIOGRAM Real-time transthoracic echocardiography with 2D, M-mode, spectral and color flow Doppler performed. QUALITY: Technical quality was adequate. LEFT VENTRICLE: Normal chamber size. Normal left ventricular wall thickness. Normal systolic function. LV EF: Normal left ventricular ejection fraction, (55%). DIASTOLIC: Grade I diastolic dysfunction. ATRIAL SEPTUM: LEFT ATRIUM: Mild dilatation. RIGHT ATRIUM: Normal chamber size. RIGHT VENTRICLE: Normal chamber size. Normal right ventricular systolic function. TRICUSPID VALVE: Normal mobility and thickness. No stenosis with trivial regurgitation. Doppler studies reveal mildly (35-45) elevated right sided pressures. RVSP 38 mmHg MITRAL VALVE: Normal mobility and thickness. No mitral valve stenosis. Moderate mitral annular calcification. Trivial mitral regurgitation. AORTIC VALVE: Normal trileaflet appearance. No visible sclerosis. Normal leaflet mobility. No evidence of aortic valve stenosis. No aortic regurgitation. AORTIC ROOT: Normal diameter and appearance. Ascending aorta is normal in size. PULMONIC VALVE: Not well visualized. No stenosis. No regurgitation. PERICARDIUM: No evidence of pericardial effusion. IVC: Collapses with inspirations. IVC is normal in size. PLEURA: CONCLUSION: 1. Normal left ventricular size and systolic function. LVEF is estimated at 55%. 2. Normal right ventricular size and systolic function. 3. Grade 1 diastolic dysfunction. 4. No significant valvular dysfunction. 5. Mildly elevated right-sided pressures. 6. No pericardial effusion. Adult Echocardiography Procedure Report Left Ventricle LVEDD (3.7 - 5.6 cm): 5.49 cm LVESD (2.2 - 4.0 cm): 4.26 cm LVIVS thickness (0.6 - 1.2 cm): 1.14 cm LVPW thickness (0.5 - 1.0 cm): 1.00 cm e': 0.09 m/s E - e': 9.93 LVOT Max Gradient: 2.85 mm[Hg] LVOT Area (cm2): 0.84 m/s Peak Velocity (LVOT): 0.84 m/s Mean Velocity (LVOT): 0.52 m/s LVOT Diameter 2.28 cm Left Atrium LA Volume Index (2D A2C): 36.99 ml/m2 Left Atrium Systolic Dimension: 4.60 cm Mitral Valve MV E to A Ratio: 0.65 Mitral Valve A-Wave Peak Velocity: 1.35 m/s Mitral Valve E-Wave Peak Velocity: 0.87 m/s Right Ventricle Aorta AO Root Diam: 3.61 cm Ascending Ao Diam: 2.76 cm Aortic Valve AoV Area (Peak Ian): 2.93 cm2, 2.93 cm2 AoV Area (VTI): 3.31 cm2, 3.31 cm2 Peak Velocity(Antegrade Flow): 1.17 m/s Peak Gradient(Antegrade Flow): 5.52 mm[Hg] Mean Velocity(Antegrade Flow): 0.68 m/s Mean Gradient(Antegrade Flow): 2.30 mm[Hg] Velocity Time Integral: 22.27 cm Tricuspid Valve Peak Velocity (Regurgitant Flow): 2.98 m/s Pulmonic Valve Mean Gradient: 1.43 mm[Hg] Mean Velocity: 0.58 m/s Peak Velocity: 0.81 m/s Peak Gradient: 2.61 mm[Hg] Right Atrium Right Atrium Systolic Pressure: 41.43 ml, 41.43 ml Dictated by: Jermaine Valenzuela M.D. on 01/04/2024 at 20:12 Approved by: Jermaine Valenzuela M.D. on 01/04/2024 at 20:15
[2024-01-03] MEDS: 0.9 % SODIUM CHLORIDE 1,000 ML 75 ML IV (19:04)
[2024-01-03 19:05] LABS: Alanine Aminotransferase 33 U/L (16-63); Albumin Level 3.6 g/dL (3.4-5.0); Alkaline Phosphatase 51 U/L (46-116); Aspartate Amino Transferase 22 U/L (15-37); Bilirubin Direct 0.1 mg/dL (0.0-0.2); Bilirubin Total 0.4 mg/dL (0.2-1.0); Globulin 3.5 g/dL; Total Protein 7.1 g/dL (6.4-8.2)
[2024-01-03] MEDS: METFORMIN HCL 500 MG TAB.ER.24H 1000 MG PO (20:45)
[2024-01-03] MEDS: DOXYCYCLINE MONOHYDRATE 100 MG CAPSULE PO (20:45)
[2024-01-03] MEDS: HALOPERIDOL 1 MG TABLET PO (20:45)
[2024-01-03] MEDS: TAMSULOSIN HCL 0.4 MG CAPSULE PO (20:47)
[2024-01-03] MEDS: NYSTATIN 15 GM POWDER 1 APPLIC TOPICAL (22:20)
--- NOTE | 2024-01-03 22:35 | PC.NURSE ---
RN at pt's bedside. Pt pulling on IV. Attempt to distract pt unsuccessful. Pt pulled IV out. Pt yelling and becoming aggressive with RN. Pt throwing legs over side rail. Attempts made to hit at staff. Hospitalist contacted. Orders received.
[2024-01-03] MEDS: OLANZAPINE 10 MG VIAL 5 MG IM (22:58)
[2024-01-04 04:07] VITALS: BP 141/69; PULSE 77; TEMP 37.5; O2SAT 91
[2024-01-04] MEDS: NYSTATIN 15 GM POWDER 1 APPLIC TOPICAL ×2 (05:15→14:27)
[2024-01-04 05:47] LABS: Basophils Percent Auto 0.4 % (0.2-2.0); Eosinophils Absolute Auto 0.2 10^3/uL (0.0-0.7); Eosinophils Percent Auto 1.6 % (0.9-7.0); Hemoglobin 11.8 g/dL (14.0-18.0); Immature Granulocytes Abs Auto 0.07 10^3/uL (0.00-0.03); Immature Granulocytes Pct Auto 0.7 % (0.0-0.5); Lymphocytes Absolute Auto 1.4 10^3/uL (1.2-3.8); Lymphocytes Percent Auto 13.5 % (20.5-60.0); Mean Corpuscular HGB Conc 32.8 g/dL (29.9-35.2); Mean Corpuscular Hemoglobin 28.7 pg (25.9-34.0); Mean Corpuscular Volume 87.6 fL (80.0-94.0); Mean Platelet Volume 11.1 fL (9.5-13.5); Monocytes Absolute Auto 1.2 10^3/uL (0.3-0.8); Monocytes Percent Auto 11.9 % (1.7-12.0); Neutrophils Absolute Auto 7.4 10^3/uL (1.4-6.5); Neutrophils Percent Auto 71.9 % (43.0-75.0); Platelet Count 241 10^3/uL (150-450); Red Blood Count 4.11 10^6/uL (4.70-6.10); Red Cell Distribution Width 14.1 % (11.0-15.0); White Blood Count 10.3 10^3/uL (4.0-11.0)
[2024-01-04 06:06] LABS: Alanine Aminotransferase 38 U/L (16-63); Albumin Globulin Ratio 1.1; Albumin Level 3.2 g/dL (3.4-5.0); Alkaline Phosphatase 45 U/L (46-116); Anion Gap 10.1; Aspartate Amino Transferase 31 U/L (15-37); BUN Creatinine Ratio 27.1; Bilirubin Total 0.7 mg/dL (0.2-1.0); Carbon Dioxide 30.8 mmol/L (21.0-32.0); Chloride 98 mmol/L (98-107); Estimated GFR (African America >60 (>=60); Estimated GFR (Non-African Ame 54 (>=60); Glucose 147 mg/dL (74-106); Potassium 3.9 mmol/L (3.5-5.1); Sodium 135 mmol/L (136-145); Total Protein 6.2 g/dL (6.4-8.2)
[2024-01-04 06:17] LABS: Magnesium 1.2 mg/dL (1.8-2.4); Troponin I High Sensitivity 64.4 pg/mL (4.0-76.1)
[2024-01-04 07:26] LABS: Glucometer 153 mg/dL (74-106)
[2024-01-04 07:34] VITALS: BP 168/70; PULSE 70; TEMP 37.3; O2SAT 92
--- NOTE | 2024-01-04 08:09 | CM.NOTE ---
Rounds made with Dr. Brown, pt will have EEG today and consult teleneuro for further recommendations. Pt is from [facility], possible discharge back to [facility] today.
--- NOTE | 2024-01-04 08:27 | P.DS_ITS ---
DS: Providers Provider Date of admission: 01/03/24 16:06 Primary care physician: HEMALATHA MORAN Consults: 01/03/24 17:00 Occupational Therapy Eval and Treat Routine Reason for consultation: Only if needed for Rehab Has provider been notified: No Physical Therapy Eval and Treat Routine Reason for consultation: Eval and Treat Has provider been notified: No 01/03/24 17:03 Consult to TeleNeurology Routine Reason for consultation: witnessed seizure Has provider been notified: No DS: Diagnosis Discharge Diagnosis (1) Laceration of nose: (2) New onset seizure: (3) Dementia with behavioral disturbance: (4) Behavioral problem: Plan Admission findings: Head injury, laceration to the face, workup unremarkable other than hyponatremia, hyperglycemia, leukocytosis -discrete sounds like new onset seizures. Patient admitted for workup and treatment of same New onset seizure: Consult to neurology, will change his Seroquel to Risperdal which has slightly less potential for seizures. Check EEG. Unlikely to be able to keep him still enough for an MRI scan Elevated BNP with chronic combined congestive heart failure-no significant peripheral edema his lungs to me sounded fairly clear. Will maintain current oral medications, check echocardiogram cardiogram, repeat labs in AM Hyperglycemia-this is likely secondary to poorly controlled diabetes mellitus likely secondary to patient's oral intake. Will monitor closely here. Iron deficiency EMEA-monitor daily Hyponatremia likely secondary to the hyperglycemia. Monitor daily Dementia with behavioral disturbance-change medications as outlined above COPD-maintain home regiment, no cough throughout the evaluation Admission status: Patient with possible new onset seizure. Maintain observation status is medically necessary treatment may span just 1 midnight. Depending on workup may need to be admitted to inpatient status tomorrow if medically necessary treatment will span 2 midnights DS: Summary Hospital Course Hospital Course: Patient was seen and evaluated in the emergency room after a fall. A witness recommend recognized possible seizure activity for about 4 to 5 minutes. Patient was admitted for workup and treatment of same. He had no history of seizures in the past. Head CT was normal. He has had no further seizure activity overnight. The plan is to check an echocardiogram due to his BNP being elevated. Check EEG. Once that is completed he can likely be transferred back to his long-term care facility. Will start patient on Depakote which may help his schizophrenia-dementia with behavioral disturbance as well as prevention of future seizures. Can continue with workup as an outpatient. Medication see list. Follow-up with PCP at [facility] Status at Discharge Overall status at discharge: patient is not back to baseline Time Spent with Patient Time attestation: Total time spent providing and/or coordinating discharge services: Time spent: greater than 30 minutes Exam Constitutional Vital Signs, click to edit/add: Last Vital Signs Temp 99.1 F 01/04/24 07:34 Pulse 70 01/04/24 07:34 Resp 16 01/04/24 07:35 BP 168/70 H 01/04/24 07:34 Pulse Ox 92 L 01/04/24 07:34 O2 Del Method Room Air 01/04/24 07:34 Documenting provider has reviewed patient's vital signs: yes Common normals: no apparent distress [facility] Common normals: normocephalic; head/scalp not atraumatic (Laceration over bridge of nose) Chest Common normals: inspection of chest normal and palpation of chest normal Respiratory Common normals: no retractions and no use of accessory muscles Cardio Common normals: regular rate and regular rhythm GI Common normals: Normal to inspection, nondistended, normoactive bowel sounds present and soft to palpation Extremity Common normals: abnormal to inspection (Bandage on left hand) DS: Data Data Completed and Pending Labs on day of discharge: Labs from last 24 hours 01/04/24 01/04/24 01/03/24 07:25 05:33 17:28 WBC 10.3 RBC 4.11 L Hgb 11.8 L Hct 36.0 L MCV 87.6 MCH 28.7 MCHC 32.8 RDW 14.1 Plt Count 241 MPV 11.1 Neut % (Auto) 71.9 Lymph % (Auto) 13.5 L Karnes % (Auto) 11.9 Eos % (Auto) 1.6 Baso % (Auto) 0.4 Neut # (Auto) 7.4 H Lymph # (Auto) 1.4 Karnes # (Auto) 1.2 H Eos # (Auto) 0.2 Baso # (Auto) 0.0 Abs Immat Gran (auto) 0.07 H Imm/Tot Granulo (auto) 0.7 H Sodium 135 L Potassium 3.9 Chloride 98 Carbon Dioxide 30.8 Anion Gap 10.1 BUN 35.0 H Creatinine 1.29 Est GFR ( Amer) >60 Est GFR (Non-Af Amer) 54 L BUN/Creatinine Ratio 27.1 Glucose 147 H Calcium 9.0 Magnesium 1.2 L Total Bilirubin 0.7 Direct Bilirubin AST 31 ALT 38 Alkaline Phosphatase 45 L Ammonia 21 Troponin I High Sens 64.4 NT-Pro-B Natriuret Pep 8246.0 H* Total Protein 6.2 L Albumin 3.2 L Globulin 3.0 Albumin/Globulin Ratio 1.1 TSH Thyroxine (T4) Urine Color Urine Clarity Urine pH Ur Specific Fonda Urine Protein Urine Glucose (UA) Urine Ketones Urine Occult Blood Urine Nitrite Urine Bilirubin Urine Urobilinogen Ur Leukocyte Esterase Urine RBC Urine WBC Ur Squamous Epith Cells Urine Crystals Urine Bacteria Urine Casts Urine Mucus POC Glucose 153 H 01/03/24 01/03/24 01/03/24 16:27 11:40 11:08 WBC 12.6 H RBC 4.26 L Hgb 12.3 L Hct 37.6 L MCV 88.3 MCH 28.9 MCHC 32.7 RDW 14.0 Plt Count 241 MPV 10.9 Neut % (Auto) 82.9 H Lymph % (Auto) 7.5 L Karnes % (Auto) 7.7 Eos % (Auto) 0.7 L Baso % (Auto) 0.2 Neut # (Auto) 10.4 H Lymph # (Auto) 0.9 L Karnes # (Auto) 1.0 H Eos # (Auto) 0.1 Baso # (Auto) 0.0 Abs Immat Gran (auto) 0.13 H Imm/Tot Granulo (auto) 1.0 H Sodium 132 L Potassium 4.5 Chloride 95 L Carbon Dioxide 31.5 Anion Gap 10.0 BUN 34.0 H Creatinine 1.16 Est GFR ( Amer) >60 Est GFR (Non-Af Amer) >60 BUN/Creatinine Ratio 29.3 Glucose 234 H Calcium 9.8 Magnesium 1.1 L Total Bilirubin 0.4 Direct Bilirubin 0.1 AST 22 ALT 33 Alkaline Phosphatase 51 Ammonia Troponin I High Sens 42.7 NT-Pro-B Natriuret Pep 7496.0 H* Total Protein 7.1 Albumin 3.6 Globulin 3.5 Albumin/Globulin Ratio 1.0 TSH 2.851 Thyroxine (T4) 7.80 Urine Color Lt. yellow Urine Clarity Clear Urine pH 6.0 Ur Specific Fonda 1.020 Urine Protein Trace Urine Glucose (UA) Negative Urine Ketones Negative Urine Occult Blood Negative Urine Nitrite Negative Urine Bilirubin Negative Urine Urobilinogen 0.2 Ur Leukocyte Esterase Negative Urine RBC None seen Urine WBC None seen Ur Squamous Epith Cells Rare Urine Crystals None seen Urine Bacteria None seen Urine Casts None seen Urine Mucus None seen POC Glucose 187 H Discharge Plan Discharge Disposition: Xfer SNF Condition: Good Discharge Medications: New haloperidol 1 mg Tablet 1 mg PO BID Qty: 60 11RF valproic acid 250 mg Capsule 500 mg PO TID Qty: 180 11RF Continued aspirin [Adult Low Dose Aspirin] 81 mg tablet,delayed release (DR/EC) 81 mg PO DAILY albuterol sulfate 2.5 mg /3 mL (0.083 %) solution for nebulization 2.5 mg inhalation Q6H PRN (Reason: shortness of breath or wheezing) cetirizine [All Day Allergy (cetirizine)] 10 mg tablet 10 mg PO DAILY PRN (Reason: allergy symptoms) cholecalciferol (vitamin D3) 50 mcg (2,000 unit) tablet 50 mcg PO DAILY doxycycline hyclate 100 mg tablet 100 mg PO Q12H Patient Comments: 12/30/23-01/10/24 metformin 500 mg tablet extended release 24 hr 1,000 mg PO BID nystatin 100,000 unit/gram powder 1 applic TOPICAL TID spironolactone 25 mg tablet 25 mg PO DAILY acetaminophen 325 mg capsule 650 mg PO Q6H PRN (Reason: fever or pain) citalopram [Celexa] 20 mg tablet 20 mg PO DAILY furosemide 40 mg tablet 40 mg PO DAILY Altoprev 40 mg tablet extended release 24 hr 40 mg PO QPM tamsulosin [Flomax] 0.4 mg capsule 0.4 mg PO BID Discontinued quetiapine [Seroquel] 25 mg tablet 25 mg PO DAILY Print Language: Slovenian Forms: Portal Instructions
--- NOTE | 2024-01-04 09:19 | SWNOTE1 ---
Pt is from [facility] long-term. It is possible for discharge today. No precert, he can return at anytime.
[2024-01-04] MEDS: HALOPERIDOL 1 MG TABLET PO (09:37)
[2024-01-04] MEDS: CHOLECALCIFEROL (VITAMIN D3) 25 MCG/1,000 UNITS TABLET 50 MCG PO (09:37)
[2024-01-04] MEDS: METFORMIN HCL 500 MG TAB.ER.24H 1000 MG PO (09:37)
[2024-01-04] MEDS: FUROSEMIDE 40 MG/4 ML VIAL 60 MG IVP (09:37)
[2024-01-04] MEDS: SPIRONOLACTONE 25 MG TABLET PO (09:38)
[2024-01-04] MEDS: CITALOPRAM HYDROBROMIDE 20 MG TABLET PO (09:38)
[2024-01-04] MEDS: ASPIRIN 81 MG TABLET.DR PO (09:38)
[2024-01-04] MEDS: VALPROIC ACID INJ 500 MG in 0.9 % SODIUM CHLORIDE 50 ML 55 MG IV (09:38)
[2024-01-04] MEDS: MAGNESIUM SULFATE IN WATER 4 GM/100 ML PIGGYBACK IV (09:38)
[2024-01-04] MEDS: TAMSULOSIN HCL 0.4 MG CAPSULE PO (09:38)
[2024-01-04] MEDS: DOXYCYCLINE MONOHYDRATE 100 MG CAPSULE PO (09:38)
[2024-01-04 12:13] LABS: Glucometer 157 mg/dL (74-106)
--- NOTE | 2024-01-04 13:23 | SWNOTE1 ---
Pt is able to be dc back to [facility] today. MARGARET faxed over dc med rec and updates earlier today. MARGARET called and sent up [facility] stretcher due to Dementia and new onset seizures and they will be here around 4:45. MARGARET notified [facility] and nursing.
--- NOTE | 2024-01-04 13:26 | SWNOTE1 ---
MARGARET called pt's wifes number that is listed and a person answered, but it was the wrong number. MARGARET called pt's daughters number that is listed, no answer. MARGARET left message. Pt has Dementia and is not able to complete GOVEA. No family member has answered to complete GOVEA with.
== END 2024-01-04 18:10 ==
LOC: ER 15:05 → MS 16:13
PROVIDERS: Admitting Provider Family Medicine; Emergency Provider Emergency Medicine; PCP Family Medicine; Visit Provider Family Medicine
DX: R56.9 Unspecified convulsions (principal); S09.90XA Unspecified injury of head, initial encounter; S01.21XA Laceration without foreign body of nose, initial encounter; E87.1 Hypo-osmolality and hyponatremia; E11.65 Type 2 diabetes mellitus with hyperglycemia; I50.42 Chronic combined systolic (congestive) and diastolic (congestive) heart failure; D50.9 Iron deficiency anemia, unspecified; F03.918 Unspecified dementia, unspecified severity, with other behavioral disturbance; J44.9 Chronic obstructive pulmonary disease, unspecified; W19.XXXA Unspecified fall, initial encounter; Z91.81 History of falling; Z87.891 Personal history of nicotine dependence; Z79.84 Long term (current) use of oral hypoglycemic drugs; Z87.01 Personal history of pneumonia (recurrent); Z51.81 Encounter for therapeutic drug level monitoring; Z79.899 Other long term (current) drug therapy
CPT/HCPCS: 36415; 70450; 71045; 72125; 73030; 80048; 80053; 80076; 81001; 82140; 82607; 82746; 82948; 83735; 83880; 84436; 84443; 84484; 85025; 87086; 93005; 93306; 94640; 94667; 94761; 95816; 96365; 96366; 96368; 96372; 96375; 96376; 97161; 97165; 99285; G0378; J1940; J2060; J2359; J3475; Q3014

== ENCOUNTER 2024-01-08 19:05 | Emergency (ER) | payer OTHER, MEDICAID, SELFPAY ==
[2024-01-08] VITALS (25 sets, daily range): BP systolic 128–178; BP diastolic 35–50; PULSE 28–39; TEMP 36.4; O2SAT 91–99; BMI 36.6
--- NOTE | 2024-01-08 19:16 | ECG_ITS ---
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
--- NOTE | 2024-01-08 19:16 | XR_ITS ---
The [address] [address] Patient Name: CLYDE MARINA MRN: [id number] date: 1945 Sex: M Assigned Patient Location: ED.MAIN Current Patient Location: ER Accession/Order Number: [id number] Exam Date: 01/08/2024 19:15 Report Date: 01/08/2024 20:06 At the request of: YESENIA WHITE Procedure: XR chest 1V EXAM: XR chest 1V HISTORY: Bradycardia COMPARISON: 01/03/2024, 01/31/2023. TECHNIQUE: AP portable upright chest x-ray. FINDINGS: Lungs clear and unchanged without infiltrate or edema. Cardiomediastinal contour is enlarged, stable from previous. No increasing pleural effusion, no pneumothorax. XR/XR chest 1V IMPRESSION: Stable chest x-ray, clear lungs. Prominent cardiomediastinal contour similar to previous. Electronically authenticated by: CHUCKIE FUENTES Date: 01/08/2024 20:06
--- OUTSIDE RECORDS SUMMARY | 2024-01-08 19:18 | XMS_ITS | CCD ---
Author Organization [facility] Care Team Providers Care Nuclear Medicine Medical Director Name Role Phone Unavailable Primary Care [...] Bryant Attending Unavailab Robin Granger Admitting Unavailab ksenia NON STAFF Primary Care Unavailable LOLA BRIGGS Consulting Unavailable Medications Current Medications Medication Drug Class(es) Dates Sig (Normalized) Sig (Original) acetaminophen 325 mg oral tablet (8 sources) Start: 06-16-2014 take 2 tablets by mouth every six hours as needed for pain acetaminophen 325 mg Tab 650 mg = 2 tab(s), Oral, q6hr, PRN Pain, Refills(s) 0 Start Date: 06/16/14 Status: Ordered [id number] 200 actuat albuterol 0.09 mg/actuat metered dose inhaler (4 sources) beta2-Adrenergic Agonist Start: 04-27-2021 take 2 puff(s) by inhalation four times daily for wheezing Pro-Air HFA CFC free 90 mcg/inh MDI 2 puff(s), Inhalation, QID for wheezing, 8.5 gram, Refill(s) 0, [facility], 167.6, cm, 04/24/21 18:14:00 EST, Height/Length [...] Daily, # 30 tab(s), Refills(s) 0, Pharmacy: [facility], 167, cm, 11/28/22 17:20:00 EDT, Height/Length [...] Daily, # 90 tab(s), Refills(s) 4, Pharmacy: [facility], 160, cm, 12/18/22 0:04:00 EDT, Height/Length [...] Daily, # 90 tab(s), Refills(s) 4, Pharmacy: [facility], 160, cm, 12/18/22 0:04:00 EDT, Height/Length [...] Daily, # 90 tab(s), Refills(s) 1, Pharmacy: [facility], 160, cm, 12/18/22 0:04:00 EDT, Height/Length Dosing, 94, kg, 12/18/22 0:04:00 EDT, Weight Dosing Start Date: 01/15/23 Status: Ordered Start: 12-02-2022 take 1 tablet by ruperto th once daily furosemide 40 mg Tab 40 mg = 1 tab(s), Oral, Daily, # 30 tab(s), Refills(s) 0, Pharmacy: [facility], 167, cm, 11/28/22 17:20:00 EDT, Height/Length [...] day, # 30 tab(s), Refills(s) 0, Pharmacy: [facility], 167, cm, 09/26/22 10:09:00 EDT, Height/Length [...] qHS, # 210 tab(s), Refills(s) 1, Pharmacy: [facility], 160, cm, 12/18/22 0:04:00 EDT, Height/Length [...] Bedtime, # 30 tab(s), Refills(s) 0, Pharmacy: [facility], 167, cm, 11/28/22 17:20:00 EDT, Height/Length [...] Daily, # 90 tab(s), Refills(s) 1, Pharmacy: [facility], 160, cm, 12/18/22 0:04:00 EDT, Height/Length [...] week(s), # 8 cap(s), Refills(s) 0, Pharmacy: [facility], 167, cm, 11/28/22 17:20:00 EDT, Height/Length [...] Completed Start: 06-16-2014 take 1 capsule by [facility] twice daily tamsulosin 0.4 [...] Coronary atherosclerosis; Translations: [Atherosclerotic heart disease of [place] coronary artery without angina pectoris] Onset: 11-29-2022 [...] Insurance Correspondenceon 1 05-25-2022 Insurance Correspondence [id number]# 1.00TIFF Normal [facility] Coding Queryon 02-17-2023 Coding Query [facility] Discharge Instructionson Discharge Instructions [id number]# 1.00CD:127 Normal [facility] Transfer Documentson 023 Transfer Documents [id number]# 1.00CD:127 Normal [facility] Discharge Note-Nursingon Discharge Note-Nursing Normal [facility] Interdisciplinary Note - Santosh e Manageron 01-23-2023 Interdisciplinary Note - Exercise Science Instructor [facility] Comment on above: Result Comment: Elec tronically Signed By: Norma Garcia RN\.br\Date and Time Signed: 01/23/23 16:29 EDT Progress Note-Physicianon Progress Note-Physician Normal [facility] Comment on above: Result Comment: Elec tronically Signed By: New Johnson DO\.br\Date and Time Signed: 01/23/23 09:50 EDT Auto Diffon 01-22-2023 Basophils/100 WBC (Bld) 0.7 % Normal 0.0-2.0 [facility] Comment on above: Order Comment: Order Added by Discern Expert. Performed By: #### 2 782930, 53515767, 2117964, 5102008 ####[address] [address] Basophils/Leukocytes Auto (Bld) [Pure # fraction] 0.1 E9/L Normal 0.0-0.2 [facility] Comment on above: Order Comment: Order Added by Discern Expert. Performed By: #### 2 576814, 45060823, 7568660, 1892489 ####[address] [address] Eosinophils/100 WBC (Bld) 9.3 % High 0.0-8.0 [facility] Comment on above: Order Comment: Order Added by Discern Expert. Performed By: #### 2 749842, 51975211, 8124158, 7547961 ####[address] [address] Eosinophils/Leukocytes Auto (Bld) [Pure # fraction] 0.8 E9/L High 0.0-0.5 [facility] Comment on above: Order Comment: Order Added by Discern Expert. Performed By: #### 2 312872, 62562849, 7138397, 0022768 ####[address] [address] Lymphocytes/100 WBC (Bld) 17.2 % Normal 14.0-50.0 [facility] Comment on above: Order Comment: Order Added by Discern Expert. Performed By: #### 2 370651, 98457653, 9442444, 3658225 ####[address] [address] Lymphocytes/Leukocytes Auto (Bld) [Pure # fraction] 1.4 E9/L Normal 1.0-4.0 [facility] Comment on above: Order Comment: Order Added by Discern Expert. Performed By: #### 2 172532, 54352241, 4165232, 2438646 ####[address] [address] Monocytes/100 WBC (Bld) 10.0 % Normal 4.0-14.0 [facility] Comment on above: Order Comment: Order Added by Discern Expert. Performed By: #### 2 099625, 65645479, 0016279, 2017403 ####[address] [address] Monocytes/Leukocytes Auto (Bld) [Pure # fraction] 0.8 E9/L Normal 0.2-1.0 [facility] Comment on above: Order Comment: Order Added by Discern Expert. Performed By: #### 2 565011, 12417212, 3860270, 6104797 ####[address] [address] Neutrophils/100 WBC (Bld) 62.8 % Normal 36.0-75.0 [facility] Comment on above: Order Comment: Order Added by Discern Expert. Performed By: #### 2 261299, 98924245, 1706842, 6720147 ####[address] [address] Neutrophils/Leukocytes Auto (Bld) [Pure # fraction] 5.2 E9/L Normal 2.0-7.5 [facility] Comment on above: Order Comment: Order Added by Discern Expert. Performed By: #### 2 313144, 15268387, 6988392, 4449252 ####[address] [address] CBC w/ Auto Diffon 3 Erythrocyte distribution width (RBC) [Ratio] 15.2 % High 10.9-14.2 [facility] Comment on above: Performed By: #### 2 294478, 63576957, 7079754, 6064655 ####[address] [address] Hematocrit (Bld) [Volume fraction] 43.1 % Normal 37.7-49.0 [facility] Comment on above: Performed By: #### 2 942463, 50086801, 7265832, 3510582 ####[address] [place] [address] Hemoglobin (Bld) [Mass/Vol] 14.6 g/dL Normal 13.5-17.5 [facility] Comment on above: Performed By: #### 2 118291, 74011493, 9589628, 8947826 ####[address] [address] MCH (RBC) [Entitic mass] 28.1 pg Normal 27.0-34.0 [facility] Comment on above: Performed By: #### 2 270870, 72381826, 9397740, 6876934 ####[place] [address]57 MCHC (RBC) [Mass/Vol] 33.8 g/dL Normal 31.4-36.0 [facility] Comment on above: Performed By: #### 2 382815, 46145841, 0518700, 8395079 ####[place] [address]1857 MCV (RBC) [Entitic vol] 83.2 fL Normal 80.0-100.0 [facility] Comment on above: Performed By: #### 2 787027, 50828080, 6343448, 7630766 ####[address] [address] Platelet mean volume (Bld) [Entitic vol] 8.6 fL Normal 6.4-10.8 [facility] Comment on above: Performed By: #### 2 300095, 14188425, 0686784, 7714017 ####[address] [address] Platelets (Bld) [#/Vol] 221.0 E9/L Normal 150.0-500.0 [facility] Comment on above: Performed By: #### 2 980653, 26343373, 2620213, 9983029 ####[place] [address]1857 RBC (Bld) [#/Vol] 5.2 E12/L Normal 4.3-5.9 [facility] Comment on above: Performed By: #### 2 901235, 69803805, 4220740, 5100246 ####[facility] [address] [place] [address] WBC corrected for nucl RBC Auto (Bld) [#/Vol] 8.3 E9/L Normal 4.0-11.0 [facility] Comment on above: Performed By: #### 2 642142, 44398700, 7845545, 6660794 ####[facility] [address] [place] [address] CHEMISTRYOrdered By: Lab ROP User on 01-22-2023 Glucose [Mass/Vol] 121 mg/dL High 55 - 99 mg/dL [facility] POC Subsection Comment on above: Result Comment: Gareth guerrero RN/ POC Device SN [id number] Invalid Interpretation Code [facility] P[facility] Subsection POC User ID [id number] Invalid Interpretation Code [facility] POC Subsection POC Username LATONIA MALHOTRA Invalid Interpretation Code [facility] POC Subsection CHEMISTRYOrdered By: SYSTEM SYSTEM on [...] Comment on above: Performed By: #### 2 627475, 01791751, 7639877, 3987538 ####[facility] [address] [place] [address] Albumin/Globulin (S) [Mass conc ratio] 1.0 Low 1.1-2.2 [facility] Comment on above: Performed By: #### 2 315397, 50767750, 0031908, 0038544 ####[facility] [address] [place] [address] ALP [Catalytic activity/Vol] 47 Int._Unit/L Normal 21-98 [facility] Comment on above: Performed By: #### 2 697211, 90518828, 4308598, 0875216 ####[facility] [address] [place] [address] ALT No additional P-5'-P [Catalytic activity/Vol] 21 Int._Unit/L Normal 6-46 [facility] Comment on above: Performed By: #### 2 213639, 54228112, 9170580, 9583023 ####[facility] [address] [place] [address] Anion gap [Moles/Vol] 15 mmol/L Normal 6-16 [facility] Comment on above: Performed By: #### 2 452023, 90707457, 9083117, 5886112 ####[facility] [address] [facility] [address] AST [Catalytic activity/Vol] 21 Int._Unit/L Normal 5-43 [facility] Comment on above: Performed By: #### 2 887351, 29291276, 2366033, 8036818 ####[facility] [address] [place] [address] Bilirubin [Mass/Vol] 0.8 mg/dL Normal 0.0-1.1 [facility] Comment on above: Performed By: #### 2 981245, 29157719, 2437368, 3768921 ####[facility] [address] [place] [address] Calcium [Mass/Vol] 9.6 mg/dL Normal 8.9-11.1 [facility] Comment on above: Performed By: #### 2 351737, 47588371, 7876975, 5336902 ####[facility] [address] [place] [address] Chloride [Moles/Vol] 97 mmol/L Low 101-111 [facility] Comment on above: Performed By: #### 2 852309, 32319745, 7372464, 7609849 ####[facility] [address] [place] [address] CO2 [Moles/Vol] 30 mmol/L Normal 21-31 [facility] Comment on above: Performed By: #### 2 145754, 65114643, 7681907, 7500488 ####[facility] [address] [place] [address] Creatinine [Mass/Vol] 1.3 mg/dL Normal 0.5-1.3 [facility] Comment on above: Performed By: #### 2 820689, 74597324, 1475232, 3685166 ####[facility] [address] [place] [address] Globulin (S) [Mass/Vol] 3.6 g/dL Normal 1.4-4.0 [facility] Comment on above: Performed By: #### 2 384837, 92226062, 1873771, 4334187 ####[facility] [address] [place] [address] Glucose [Mass/Vol] 124 mg/dL Normal 55-199 [facility] Comment on above: Result Comment: If t his glucose result represents a fasting glucose, interpretation should refer to the following reference range: 55-99 mg/dL Performed By: #### 2 764296, 40955249, 7313252, 3744182 ####[facility] [address] [place] [address] Potassium [Moles/Vol] 4.0 mmol/L Normal 3.5-5.3 [facility] Comment on above: Performed By: #### 2 845643, 20185394, 9711343, 1759409 ####[facility] [address] [place] [address] Protein [Mass/Vol] 7.3 g/dL Normal 6.0-7.8 [facility] Comment on above: Performed By: #### 2 123506, 66158765, 9513207, 5402000 ####[facility] [address] [place] [address] Sodium [Moles/Vol] 138 mmol/L Normal 135-145 [facility] Comment on above: Performed By: #### 2 043680, 73512781, 6684986, 1086986 ####[facility] [address] [place] [address] Urea nitrogen [Mass/Vol] 42 mg/dL High 5-21 [facility] Comment on above: Performed By: #### 2 620783, 87095112, 0047738, 4429205 ####[facility] [address] [place] [address] Urea nitrogen/Creatinine [Mass ratio] 32 No Units High 10-20 [facility] Comment on above: Performed By: #### 2 322508, 52341446, 2728208, 0421241 ####[facility] [address] [place] [address] Capillary Glucose POCon Glucose [Mass/Vol] 121 mg/dL High 55-99 [facility] Comment on above: Result Comment: Gareth guerrero RN/ Performed By: #### 2 82208644 ####[facility] [address] [place] [address] Coding Queryon 01-22-2023 Coding Query Normal [facility] [...] Correspondence Off iceon 01-22-2023 Insurance Correspondence Office [id number]#1 .00CD:127 Normal [facility] Interdisciplinary Note - Santosh e Manageron 01-22-2023 Interdisciplinary Note - Exercise Science Instructor Normal [facility] Comment on above: Result Comment: Elec tronically Signed By: Natalie Grant\.br\Date and Time Signed: 01/22/23 11:13 EDT Interdisciplinary Note - Murphy n 01-22-2023 Interdisciplinary Note - OT Normal [facility] Interdisciplinary Note - PTo n 01-22-2023 Interdisciplinary Note - PT Normal [facility] Message from Medicareon 09-0 Message from Medicare [id number]#1 .00CD:127 Normal [facility] Progress Note-Physicianon Progress Note-Physician Normal [facility] Comment on above: Result Comment: Elec tronically Signed By: New Johnson DObr\Date and Time Signed: 01/22/23 14:15 EDT eGFRon 01-22-2023 GFR/1.73 sq M.predicted among non-blacks MDRD (S/P/Bld) [Vol rate/Area] 56 mL/min/1.73 m2 Low >=59 [facility] Comment on above: Order Comment: Order added by Discern Expert. Result Comment: Shark Biologist earnest kidney disease could be indicated at eGFR's of less than 60 mL/min/1.73m2. Kidney failure is indicated at less than 15 mL/min/1.73m2. Performed By: #### 2 826920, 17379306, 6568197, 1260935 ####[facility] [address] [place] [address] Auto Diffon 01-21-2023 Basophils/100 WBC (Bld) 0.9 % Normal 0.0-2.0 [facility] Comment on above: Order Comment: Order Added by Discern Expert. Performed By: #### 2 252277, 9171137, 29447204, 55194687, 2726881, 6093105 ####[facility] [address] [place] [address] Basophils/Leukocytes Auto (Bld) [Pure # fraction] 0.1 E9/L Normal 0.0-0.2 [facility] Comment on above: Order Comment: Order Added by Discern Expert. Performed By: #### 2 769248, 2890112, 36043282, 13116149, 4982583, 7910011 ####[place] [address] [place] [address] Eosinophils/100 WBC (Bld) 3.3 % Normal 0.0-8.0 [facility] Comment on above: Order Comment: Order Added by Discern Expert. Performed By: #### 2 507230, 5106856, 14117968, 24819044, 4840495, 3882011 ####[address] [address] Eosinophils/Leukocytes Auto (Bld) [Pure # fraction] 0.4 E9/L Normal 0.0-0.5 [facility] Comment on above: Order Comment: Order Added by Discern Expert. Performed By: #### 2 756930, 9328450, 55078432, 32394055, 5168675, 8249480 ####[address] [address] Lymphocytes/100 WBC (Bld) 10.4 % Low 14.0-50.0 [facility] Comment on above: Order Comment: Order Added by Discern Expert. Performed By: #### 2 432213, 8581648, 93474463, 19892422, 5129784, 8278704 ####[address] [address] Lymphocytes/Leukocytes Auto (Bld) [Pure # fraction] 1.2 E9/L Normal 1.0-4.0 [facility] Comment on above: Order Comment: Order Added by Discern Expert. Performed By: #### 2 903819, 8322704, 14777656, 26638203, 7245335, 8217083 ####[address] [address] Monocytes/100 WBC (Bld) 7.4 % Normal 4.0-14.0 [facility] Comment on above: Order Comment: Order Added by Discern Expert. Performed By: #### 2 410818, 5285876, 33939429, 36331156, 4969310, 4777338 ####[facility] [address] [place] [address] Monocytes/Leukocytes Auto (Bld) [Pure # fraction] 0.9 E9/L Normal 0.2-1.0 [facility] Comment on above: Order Comment: Order Added by Discern Expert. Performed By: #### 2 189142, 8299838, 86915214, 08090303, 2262511, 5293613 ####[place] [address] [place] [address] Neutrophils/100 WBC (Bld) 78.0 % High 36.0-75.0 [facility] Comment on above: Order Comment: Order Added by Discern Expert. Performed By: #### 2 497444, 5968531, 97748144, 10673755, 8775257, 7630282 ####[place] [address] [place] [address] Neutrophils/Leukocytes Auto (Bld) [Pure # fraction] 9.1 E9/L High 2.0-7.5 [facility] Comment on above: Order Comment: Order Added by Discern Expert. Performed By: #### 2 470446, 8551345, 34881347, 77928307, 1152279, 7980301 ####[place] [address] [place] [address] BMPon 01-21-2023 Creatinine [Mass/Vol] 1.2 mg/dL Normal 0.5-1.3 [facility] Comment on above: Performed By: #### 2 407557, 4038835, 98720977, 67174021, 6628241, 1579070 ####[place] [address] [place] [address] Urea nitrogen [Mass/Vol] 38 mg/dL High 5-21 [facility] Comment on above: Performed By: #### 2 714386, 1743175, 27303143, 64638956, 4001185, 5855329 ####[facility] [address] [place] [address] Urea nitrogen/Creatinine [Mass ratio] 32 No Units High 10-20 [facility] Comment on above: Performed By: #### 2 279244, 4948012, 29735418, 76428715, 3354281, 5002497 ####[facility] [address] [place] [address] Anion gap [Moles/Vol] 14 mmol/L Normal 6-16 [facility] Comment on above: Performed By: #### 2 528828, 3608506, 55368530, 40646045, 0122658, 1134846 ####[facility] [address] [place] [address] Calcium [Mass/Vol] 9.9 mg/dL Normal 8.9-11.1 [facility] Comment on above: Performed By: #### 2 086168, 8410639, 73278570, 83544895, 0283360, 9520231 ####[facility] [address] [place] [address] Chloride [Moles/Vol] 95 mmol/L Low 101-111 [facility] Comment on above: Performed By: #### 2 627289, 4504838, 14084978, 96158206, 6919842, 8729342 ####[facility] [address] [address] CO2 [Moles/Vol] 31 mmol/L Normal 21-31 [facility] Comment on above: Performed By: #### 2 066935, 4551336, 86353299, 08479547, 0507423, 8549042 ####[facility] [address] [place] [address] Glucose [Mass/Vol] 124 mg/dL Normal 55-199 [facility] Comment on above: Result Comment: If t his glucose result represents a fasting glucose, interpretation should refer to the following reference range: 55-99 mg/dL Performed By: #### 2 464196, 0958953, 34370466, 66287219, 2516615, 5550940 ####[facility] [address] [place] [address] Potassium [Moles/Vol] 4.3 mmol/L Normal 3.5-5.3 [facility] Comment on above: Performed By: #### 2 428141, 7870518, 15531708, 17746403, 3953744, 1256487 ####[facility] [address] [place] [address] Sodium [Moles/Vol] 136 mmol/L Normal 135-145 [facility] Comment on above: Performed By: #### 2 910302, 7515650, 47711044, 85249481, 4766032, 0609584 ####[facility] [address] [place] [address] CBC w/ Auto Diffon 3 Erythrocyte distribution width (RBC) [Ratio] 15.4 % High 10.9-14.2 [facility] Comment on above: Performed By: #### 2 709180, 3468670, 58701078, 10962925, 1542757, 9526532 ####[facility] [address] [place] [address] Hematocrit (Bld) [Volume fraction] 42.5 % Normal 37.7-49.0 [facility] Comment on above: Performed By: #### 2 117528, 7213982, 02719504, 60808505, 7825317, 6666280 ####[place] [address] [place] [address] Hemoglobin (Bld) [Mass/Vol] 13.9 g/dL Normal 13.5-17.5 [facility] Comment on above: Performed By: #### 2 974527, 2662831, 33421886, 93116684, 1716238, 9505334 ####[facility] [address] [place] [address] MCH (RBC) [Entitic mass] 27.3 pg Normal 27.0-34.0 [facility] Comment on above: Performed By: #### 2 784728, 2795927, 33759166, 05573974, 3107729, 6870732 ####[facility] [address] [place] [address] MCHC (RBC) [Mass/Vol] 32.7 g/dL Normal 31.4-36.0 [facility] Comment on above: Performed By: #### 2 964698, 1264856, 88543786, 19734252, 9327868, 1212081 ####[address] [address] MCV (RBC) [Entitic vol] 83.4 fL Normal 80.0-100.0 [facility] Comment on above: Performed By: #### 2 259014, 2102438, 35884809, 81484093, 6302130, 7733551 ####[address] [address] Platelet mean volume (Bld) [Entitic vol] 8.6 fL Normal 6.4-10.8 [facility] Comment on above: Performed By: #### 2 881249, 8315973, 29654349, 00003312, 4190910, 1643962 ####[address] [address] Platelets (Bld) [#/Vol] 252.0 E9/L Normal 150.0-500.0 [facility] Comment on above: Performed By: #### 2 323565, 5921971, 63300988, 50571128, 0961630, 6358733 ####[address] [address] RBC (Bld) [#/Vol] 5.1 E12/L Normal 4.3-5.9 [facility] Comment on above: Performed By: #### 2 574414, 4994607, 52672422, 48358459, 4138656, 5639736 ####[address] [address] WBC corrected for nucl RBC Auto (Bld) [#/Vol] 11.6 E9/L High 4.0-11.0 [facility] Comment on above: Performed By: #### 2 231502, 9179896, 18966917, 92730285, 6068797, 1051311 ####[facility] [address] [place] [address] CHEMISTRYOrdered By: SYSTEM SYSTEM on 01-21-2023 Troponin [...] 62 mL/min/1.73 m2 Normal >=59mL/min/ 1.73 m2 [facility] Chem S Globulin (S) [Mass/Vol] 3.8 g/dL [...] Treatmenton 12-24 Consent for Treatment [id number]#1 .00CD:127 Normal [facility] ED Clinical Summaryon 2022 ED Clinical Summary Normal [facility] ED Note-Physicianon 01-22-20 23 ED Note-Physician [...] 5.1 E12/L Normal 4.3 - 5.9 E12/L [facility] HemeAutoSS WBC corrected for nucl RBC Auto (Bld) [#/Vol] 11.6 E9/L High 4.0 - 11.0 E9/L [facility] HemeAutoSS Hep Func Panelon 01-21-2023 Bilirubin.direct [Mass/Vol] 0.1 mg/dL Normal 0.1-0.4 [facility] Comment on above: Performed By: #### 2 645619, 0729357, 63229085, 40660792, 3599709, 2667986 ####[facility] [address] [place] [address] Bilirubin.indirect [Mass or moles/Vol] 0.8 mg/dL Normal 0.1-0.9 [facility] Comment on above: Performed By: #### 2 003068, 6862037, 20350425, 61689142, 7008955, 8975369 ####[facility] [address] [place] [address] Albumin [Mass/Vol] 3.9 g/dL Normal 3.3-5.0 [facility] Comment on above: Performed By: #### 2 760370, 4274959, 24960976, 47300385, 4582161, 5894266 ####[facility] [address] [place] [address] Albumin/Globulin (S) [Mass conc ratio] 1.0 Low 1.1-2.2 [facility] Comment on above: Performed By: #### 2 113257, 7272274, 85106084, 79184471, 9146607, 3768082 ####[facility] [address] [place] [address] ALP [Catalytic activity/Vol] 50 Int._Unit/L Normal 21-98 [facility] Comment on above: Performed By: #### 2 600896, 9129694, 56065120, 88352165, 5448807, 4777582 ####[facility] [address] [place] [address] ALT No additional P-5'-P [Catalytic activity/Vol] 23 Int._Unit/L Normal 6-46 [facility] Comment on above: Performed By: #### 2 360215, 0990287, 14951545, 16417519, 6463828, 8471774 ####[facility] [address] [place] [address] AST [Catalytic activity/Vol] 22 Int._Unit/L Normal 5-43 [facility] Comment on above: Performed By: #### 2 653204, 7500728, 11021378, 56895964, 3025481, 0863422 ####[facility] [address] [place] [address] Bilirubin [Mass/Vol] 0.9 mg/dL Normal 0.0-1.1 [facility] Comment on above: Performed By: #### 2 749195, 2028427, 45358576, 36568682, 7465927, 7552609 ####[facility] [address] [place] [address] Globulin (S) [Mass/Vol] 3.8 g/dL Normal 1.4-4.0 [facility] Comment on above: Performed By: #### 2 655868, 4888058, 73194430, 61456652, 2893430, 2880336 ####[facility] [address] [place] [address] Protein [Mass/Vol] 7.7 g/dL Normal 6.0-7.8 [facility] Comment on above: Performed By: #### 2 582252, 7751716, 47044303, 96304295, 9077407, 4890617 ####[address] [place] [address] Retirement Recordson 01-21 Retirement Records [id number]# 1.00CD:127 Normal [facility] Troponin 0 [...] High Sensitivity Troponin I Instructions For Use, [place], December 2017) Performed By: #### 2 117570, 3074030, 08932058, 72207910, 3248982, 0418446 ####[facility] [address] [place] [address] Troponin 3 Hr.on 01-21-2023 Troponin I.cardiac [Mass/Vol] 23.90 pg/mL Normal 15.90-38.40 [facility] Comment on above: Result Comment: The 95% CI (Confidence Interval) PPV (Positive Predictive Value) for myocardial infarction in females is 38 pg/mL, in males 51 pg/mL. The results should be used in conjunction with clinical conditions of myocardial infarction.(Access High Sensitivity Troponin I Instructions For Use, [place], December 2017) Performed By: #### 1 8155890 ####[address] [place] [address] UA With Cult Reflexon 2022 Bilirubin Ql (U) Negative Normal Negative [facility] Comment on above: Performed By: #### 1 1946694 ####[address] [address] Clarity (U) CLEAR Normal Clear [facility] Comment on above: Performed By: #### 1 6474361 ####[address] [place] [address] Color (U) STRAW Abnormal Yellow [facility] Comment on above: Performed By: #### 1 2606448 ####[address] [address] Epithelial cells.squamous LM.HPF (Urine sed) [#/Area] 0-2 Normal 0-2 [facility] Comment on above: Performed By: #### 1 9597900 ####[address] [address] Glucose Test strip (U) [Mass/Vol] Negative Normal Negative [facility] Comment on above: Performed By: #### 1 5826090 ####[address] [address] Hemoglobin Ql (U) Negative Normal Negative [facility] Comment on above: Performed By: #### 1 4673150 ####[address] [address] Ketones (U) [Mass/Vol] Negative Normal Negative [facility] Comment on above: Performed By: #### 1 9392286 ####[address] [address] Vale.plasma/Vale.R BC (Bld) [Mass ratio] 0-3 Normal 0-3 [facility] Comment on above: Performed By: #### 1 3539386 ####[address] [address] Nitrite Ql (U) Negative Normal Negative [facility] Comment on above: Performed By: #### 1 4041476 ####[address] [address] pH (U) 6.0 [pH] Invalid Interpretation Code 5.0-9.0 [facility] Comment on above: Performed By: #### 1 1282740 ####[address] [address] Protein (U) [Mass/Vol] Negative Normal Negative [facility] Comment on above: Performed By: #### 1 6810479 ####[address] [address] Specific gravity (U) [Rel density] 1.010 Invalid Interpretation Code 1.005-1.030 [facility] Comment on above: Performed By: #### 1 6193784 ####[address] [address] Type of Urine collection method Clean Catch Normal [facility] Comment on above: Performed By: #### 1 8714055 ####[facility] [address] [place] [address] Urobilinogen Qn (U) 0.2 {Lei'U}/dL Normal 0.0-1.0 [facility] Comment on above: Performed By: #### 1 5400210 ####[facility] [address] [place] [address] WBC Auto Ql (U) Negative Normal Negative [facility] Comment on above: Performed By: #### 1 8880643 ####[facility] [address] [place] [address] WBC LM.HPF (Urine sed) [#/Area] 0-5 Normal 0-5 [facility] Comment on above: Performed By: #### 1 3931231 ####[facility] [address] [place] [address] URINALYSISOrdered By: Karen Vergara on 01-21-2023 Bilirubin [...] PM) Normal Negative [facility] UA Auto SS Vale.plasma/Vale.R BC (Bld) [Mass ratio] 0-3 /HPF Normal 0-3/HPF [facility] UA Au to SS Nitrite Ql (U) Negative (01/21/23 4:41 PM) Normal Negative [facility] UA Auto SS pH (U) 6.0 *NA* (01/21/23 4:41 PM) Invalid Interpretation Code 5.0 - 9.0 [facility] UA Auto SS Protein (U) [Mass/Vol] Negative (01/21/23 4:41 PM) Normal Negative [facility] UA Auto SS Specific gravity (U) [Rel density] 1.010 *NA* (01/21/23 4:41 PM) Invalid Interpretation Code 1.005 - 1.030 [facility] UA Auto SS UA Spec Desc Clean Catch (01/21/23 4:41 PM) Normal [facility] UA Auto SS Urobilinogen Qn (U) 0.8764402 {Lei'U}/dL Normal 0.0 - 1.0 EU/dL [facility] UA Auto SS WBC Auto Ql (U) Negative (01/21/23 4:41 PM) Normal Negative [facility] UA Auto SS WBC LM.HPF (Urine sed) [#/Area] 0-5 /HPF Normal 0-5/HPF [facility] UA Auto SS XR Chest Single Viewon 01-21 XR Chest Single View Normal [facility] eGFRon 01-21-2023 GFR/1.73 sq M.predicted among non-blacks MDRD (S/P/Bld) [Vol rate/Area] 62 mL/min/1.73 m2 Normal >=59 [facility] Comment on above: Order Comment: Order added by Discern Expert. Result Comment: Shark Biologist earnest kidney disease could be indicated at eGFR's of less than 60 mL/min/1.73m2. Kidney failure is indicated at less than 15 mL/min/1.73m2. Performed By: #### 2 024603, 1432789, 88280570, 03215291, 4852121, 2311789 ####[facility] [address] [place] [address] Discharge Instructionson Discharge Instructions [id number]#1 .00CD:127 Normal [facility] Capillary Glucose POCon 12-23 Glucose [Mass/Vol] 117 mg/dL High 55-99 [facility] Comment on above: Result Comment: Yazmin bri Meter Performed By: #### 2 06111324 ####[facility] [address] [place] [address] Family Medicine Office/Clini c Noteon 01-15-2023 Family Medicine Office/Clinic Note Normal [facility] Comment on above: Result Comment: Elec tronically Signed By: SHAISTA POTTS, Dennise.br\Date and Time Signed: 01/15/23 16:46 EDT Capillary Glucose POCon 12-23 Glucose [Mass/Vol] 121 mg/dL High 55-[address] [place] [address] Comment on above: Result Comment: Yazmin bri Meter Performed By: #### 2 91157873 ####[facility] [address] [place] [address] Capillary Glucose POCon 12-23 Glucose [Mass/Vol] 127 mg/dL [address] Comment on above: Result Comment: Yazmin bri Meter Performed By: #### 2 96702561 ####[facility] [address] [place] [address] Capillary Glucose POCon 12-22 Glucose [Mass/Vol] 104 mg/dL [address] Comment on above: Result Comment: Yazmin bri Meter Performed By: #### 2 64055207 ####[facility] [address] [place] [address] Capillary Glucose POCon 12-22 Glucose [Mass/Vol] 121 mg/dL [place] [address] [place] [address] Comment on above: Result Comment: Yazmin bri Meter Performed By: #### 2 14949244 ####[facility] [address] [place] [address] Capillary Glucose POCon 12-22 Glucose [Mass/Vol] 110 mg/dL [address] Comment on above: Result Comment: Yazmin bri Meter Performed By: #### 2 07776938 ####[facility] [address] [place] [address] Capillary Glucose POCon 12-22 Glucose [Mass/Vol] 119 mg/dL High 55-99 [facility] Comment on above: Result Comment: Yazmin bri Meter Performed By: #### 2 44081835 ####[facility] [address] [place] [address] Capillary Glucose POCon 12-22 Glucose [Mass/Vol] 141 mg/dL High 55-99 [facility] Comment on above: Result Comment: Yazmin bri Meter Performed By: #### 2 68557073 ####[facility] [address] [place] [address] Capillary Glucose POCon 12-22 Glucose [Mass/Vol] 104 mg/dL High 55-99 [facility] Comment on above: Result Comment: Yazmin bri Meter Performed By: #### 2 67922198 ####[facility] [address] [place] [place] [address] BMPon 12-30-2022 Calcium [Mass/Vol] 9.1 mg/dL Normal 8.9-11.1 [facility] Comment on above: Performed By: #### 7 86482284, 6740787, 24872091 ####[facility] [address] [place] [address] Anion gap [Moles/Vol] 18 mmol/L High 6-16 [facility] Comment on above: Performed By: #### 7 09967492, 3271831, 06878486 ####[facility] [address] [place] [address] Chloride [Moles/Vol] 91 mmol/L Low 101-111 [facility] Comment on above: Performed By: #### 7 04258684, 7843022, 24974340 ####[facility] [address] [place] [address] CO2 [Moles/Vol] 30 mmol/L Normal 21-31 [facility] Comment on above: Performed By: #### 7 44165510, 1919073, 12349947 ####[facility] [address] [place] [address] Creatinine [Mass/Vol] 1.3 mg/dL Normal 0.5-1.3 [facility] Comment on above: Performed By: #### 7 68494777, 9810632, 50327408 ####[facility] [address] [place] [address] Glucose [Mass/Vol] 171 mg/dL Normal 55-199 [facility] Comment on above: Result Comment: If t his glucose result represents a fasting glucose, interpretation should refer to the following reference range: 55-99 mg/dL Performed By: #### 7 37863299, 9817365, 51135592 ####[facility] [address] [place] [address] Potassium [Moles/Vol] 4.2 mmol/L Normal 3.5-5.3 [facility] Comment on above: Performed By: #### 7 37987178, 3016305, 44619056 ####[facility] [address] [place] [address] Sodium [Moles/Vol] 135 mmol/L Normal 135-145 [facility] Comment on above: Performed By: #### 7 12971589, 1463006, 21024426 ####[facility] [address] [place] [address] Urea nitrogen [Mass/Vol] 36 mg/dL High 5-21 [facility] Comment on above: Performed By: #### 7 14726942, 9334042, 80414014 ####[facility] [address] [place] [address] Urea nitrogen/Creatinine [Mass ratio] 28 No Units High 10-20 [facility] Comment on above: Performed By: #### 7 35791436, 5922184, 51687103 ####[facility] [address] [place] [address] PmlJ8xjz 12-30-2022 HbA1c (Bld) [Mass fraction] 6.9 % High <=5.9 [facility] Comment on above: Performed By: #### 7 75643635, 6895600, 66071303 ####[facility] [address] [place] [address] eGFRon 12-30-2022 GFR/1.73 sq M.predicted among non-blacks MDRD (S/P/Bld) [Vol rate/Area] 56 mL/min/1.73 m2 Low >=59 [facility] Comment on above: Order Comment: Order added by Discern Expert. Result Comment: Shark Biologist earnest kidney disease could be indicated at eGFR's of less than 60 mL/min/1.73m2. Kidney failure is indicated at less than 15 mL/min/1.73m2. Performed By: #### 7 84045263, 6057898, 83950727 ####[facility] [address] [place] [address] Capillary Glucose POCon 08-0 Glucose [Mass/Vol] 141 mg/dL [address] Comment on above: Result Comment: Yazmin bri Meter Performed By: #### 2 13025418 ####[facility] [address] [place] [address] Capillary Glucose POCon 08-0 Glucose [Mass/Vol] 101 mg/dL [address] Comment on above: Result Comment: Yazmin bri Meter Performed By: #### 2 94237597 ####[facility] [address] [place] [address] C Blood Charcoalon 3 Blood Culture Charcoal Normal [facility] Comment on above: Performed By: #### 1 9007977 ####[facility] [address] [place] [address] Capillary Glucose POCon 08-0 Glucose [Mass/Vol] 135 mg/dL [address] Comment on above: Result Comment: Yazmin bri Meter Performed By: #### 2 46013440 ####[facility] [address] [place] [address] Capillary Glucose POCon 08-0 Glucose [Mass/Vol] 110 mg/dL [address] Comment on above: Result Comment: Yazmin bri Meter Performed By: #### 2 48442975 ####[facility] [address] [place] [address] Consultation Noteon 12-24-19 Consultation Note Normal Community [...] C Blood Charcoalon Blood Culture Charcoal Normal [facility] Comment on above: Performed By: #### 1 7265852 ####[facility] [address] [place] [address] U Legi Agon 12-22-2022 L. pneumophila 1 Ag IA Ql (U) Negative Invalid Interpretation Code Negative [facility] Comment on above: Result Comment: Pres umptive negative for L. pneumophila serogroup 1 antigen in urine,suggesting no recent or current infection. Legionnaires' diseasecannot be ruled out since other serogroups and species may also causedisease.Performed at: [facility] [id number] MD Tyler Gurrola Performed By: #### 2 831518 ####[facility] [address] [place] [address] C Urineon 12-21-2022 Bacteria identified Cx Nom (U) Normal [facility] Comment on above: Performed By: #### 1 9418802, 0704009 ####[facility] [address] [place] [address] Capillary Glucose POCon 11-23 Glucose [Mass/Vol] 134 mg/dL High 55-99 [facility] Comment on above: Result Comment: Yazmin bri Meter Performed By: #### 2 49321352 ####[address] [address] Auto DiffOrdered By: SYSTEM SYSTEM on 12-20-2022 Basophils/100 WBC (Bld) 0.5 % Normal 0.0-2.0 F [facility] HemeAutoSS Comment on above: Order Comment: Order Added by Discern Expert. Performed By: #### 2 150768, 7125139, 08155163, 4733148 ####[address] [address] Basophils/Leukocytes Auto (Bld) [Pure # fraction] 0.0 E9/L Normal 0.0-0.2 [facility] HemeAutoSS Comment on above: Order Comment: Order Added by Discern Expert. Performed By: #### 2 045831, 0733733, 04438954, 4980340 ####[address] [address] Eosinophils/100 WBC (Bld) 7.9 % Normal 0.0-8.0 [facility]eAutoSS Comment on above: Order Comment: Order Added by Discern Expert. Performed By: #### 2 512686, 0697311, 20348408, 9055662 ####[address] [address] Eosinophils/Leukocytes Auto (Bld) [Pure # fraction] 0.8 E9/L High 0.0-0.5 [facility] Comment on above: Order Comment: Order Added by Discern Expert. Performed By: #### 2 613390, 8073956, 83065284, 0840521 ####[address] [address] Lymphocytes/100 WBC (Bld) 9.5 % Low 14.0-50.0 [facility] Comment on above: Order Comment: Order Added by Discern Expert. Performed By: #### 2 835266, 9200015, 94843737, 5686967 ####[address] [address] Lymphocytes/Leukocytes Auto (Bld) [Pure # fraction] 1.0 E9/L Normal 1.0-4.0 [facility] Comment on above: Order Comment: Order Added by Discern Expert. Performed By: #### 2 765967, 5323393, 93970090, 5221259 ####[address] [place] [address] Monocytes/100 WBC (Bld) 7.6 % Normal 4.0-14.0 F [facility]eAuto[facility] Comment on above: Order Comment: Order Added by Discern Expert. Performed By: #### 2 109016, 0564731, 01225732, 6206910 ####[facility] [address] [address] Monocytes/Leukocytes Auto (Bld) [Pure # fraction] 0.8 E9/L Normal 0.2-1.0 [facility]eAutoSS Comment on above: Order Comment: Order Added by Bethany Expert. Performed By: #### 2 718043, 7343507, 24198753, 7059826 ####[facility] [address] [address] Neutrophils/100 WBC (Bld) 74.5 % Normal 36.0-75.0 [facility] HemeAutoSS Comment on above: Order Comment: Order Added by Discern Expert. Performed By: #### 2 894347, 2428659, 55003344, 9575706 ####[address] [address] Neutrophils/Leukocytes Auto (Bld) [Pure # fraction] 7.7 E9/L High 2.0-7.5 [facility] Comment on above: Order Comment: Order Added by Discern Expert. Performed By: #### 2 968140, 9576295, 40154354, 4723720 ####[address] [address] BMPOrdered By: SYSTEM SYSTEM on 12-20-2022 Anion gap [Moles/Vol] 8 mmol/L Normal 6-16 [facility] Comment on above: Performed By: #### 2 539278, 9673748, 84262088, 7026858 ####[facility] [address] [address] Calcium [Mass/Vol] 7.9 mg/dL Low 8.9-11.1 [facility] R emisol Comment on above: Performed By: #### 2 783424, 9845512, 74767308, 7498438 ####[facility] [address] [place] [address] Chloride [Moles/Vol] 105 mmol/L Normal 101-111 [facility] Remisol Comment on above: Performed By: #### 2 892097, 3099822, 19070426, 0154426 ####[facility] [address] [place] [address] CO2 [Moles/Vol] 25 mmol/L Normal 21-31 [facility] Ashwin luanne Comment on above: Performed By: #### 2 644008, 4035506, 20009292, 7619467 ####[facility] [address] [place] [address] Creatinine [Mass/Vol] 1.0 mg/dL Normal 0.5-1.3 [facility] Comment on above: Performed By: #### 2 055466, 7648905, 68019515, 7278197 ####[facility] [address] [place] [address] Glucose [Mass/Vol] 106 mg/dL Normal 55-199 [facility] emisol Comment on above: Result Comment: If t his glucose result represents a fasting glucose, interpretation should refer to the following reference range: 55-99 mg/dL Performed By: #### 2 346560, 9359352, 45853965, 4859702 ####[facility] [address] [place] [address] Potassium [Moles/Vol] 4.4 mmol/L Normal 3.5-5.3 [facility] Comment on above: Performed By: #### 2 069835, 5522178, 86861805, 3492986 ####[facility] [address] [place] [address] Sodium [Moles/Vol] 134 mmol/L Low 135-145 [facility] R emisol Comment on above: Performed By: #### 2 948244, 6514604, 82908786, 8511374 ####[facility] [address] [place] [address] Urea nitrogen [Mass/Vol] 22 mg/dL High 5-21 [facility] Remisol Comment on above: Performed By: #### 2 965655, 9807772, 65758160, 5335220 ####[facility] [address] [place] [address] BMPon 12-20-2022 Urea nitrogen/Creatinine [Mass ratio] 22 No Units High 10-20 [facility] Comment on above: Performed By: #### 2 767527, 2041094, 05833008, 0492287 ####[facility] [address] [place] [address] CBC w/ Auto DiffOrdered By: Bony Hdez on 12-20-2022 Erythrocyte distribution width (RBC) [Ratio] 14.7 % High 10.9-14.2 [facility] Comment on above: Performed By: #### 2 651804, 2792327, 48930389, 0844683 ####[address] [address] Hematocrit (Bld) [Volume fraction] 34.6 % Low 37.7-49.0 [facility] Comment on above: Performed By: #### 2 740727, 1914840, 27720583, 6256063 ####[address] [place] [address] Hemoglobin (Bld) [Mass/Vol] 11.7 g/dL Low 13.5-17.5 [facility] HemeAutoSS Comment on above: Performed By: #### 2 168089, 2429175, 36495045, 9313099 ####[address] [place] [address] MCH (RBC) [Entitic mass] 28.6 pg Normal 27.0-34.0 [facility] Comment on above: Performed By: #### 2 637003, 3974322, 25536685, 7881005 ####[address] [address] MCHC (RBC) [Mass/Vol] 33.7 g/dL Normal 31.4-36.0 [facility] HemeAutoSS Comment on above: Performed By: #### 2 570116, 1391689, 35709243, 8217053 ####[place] [address] MCV (RBC) [Entitic vol] 84.7 fL Normal 80.0-100.0 F [facility]AutoSS Comment on above: Performed By: #### 2 832530, 1048198, 96002680, 7118676 ####[place] [address] Platelet mean volume (Bld) [Entitic vol] 9.5 fL Normal 6.4-10.8 [facility]eAutoSS Comment on above: Performed By: #### 2 378682, 9234761, 67906299, 0732778 ####[address] [address] Platelets (Bld) [#/Vol] 216.0 E9/L Normal 150.0-500.0 [facility]eAutoSS Comment on above: Performed By: #### 2 917440, 3689232, 52321037, 1693379 ####[place] [address] RBC (Bld) [#/Vol] 4.1 E12/L Low 4.3-5.9 [facility] Comment on above: Performed By: #### 2 174120, 7911876, 00644286, 9934187 ####[address] [address] WBC corrected for nucl RBC Auto (Bld) [#/Vol] 10.3 E9/L Normal 4.0-11.0 [facility] Comment on above: Performed By: #### 2 780763, 1081146, 02777815, 0918225 ####[facility] [address] [place] [address] CHEMISTRYOrdered By: Lab ROP User on 12-20-2022 Glucose [Mass/Vol] 109 mg/dL High 55 - 99 mg/dL [facility] POC Subsection Comment on above: Result Comment: Gareth GARDINER POC Device SN [id number] Invalid Interpretation Code [facility] POC Subsection POC User ID [id number] Invalid Interpretation Code [facility] POC Subsection POC Username SAMANTHA LAMBERT Invalid Interpretation Code [facility] POC Subsection CHEMISTRYOrdered By: SYSTEM SYSTEM on 12-20-2022 Urea nitrogen/Creatinine [Mass ratio] 22 mg/mg High 10 - 20 [facility] Remisol Capillary Glucose POCon 11-23 Glucose [Mass/Vol] 198 mg/dL High 55-99 [facility] Comment on above: Result Comment: Yazmin bri Meter Performed By: #### 2 37265144 ####[facility] [address] [place] [address] Glucose [Mass/Vol] 109 mg/dL High 55-99 [facility] Comment on above: Result Comment: Gareth GARDINER Performed By: #### 2 48194072 ####[facility] [address] [place] [address] Discharge Documentationon Discharge Documentation [id number]#1 .00CD:127 Normal [facility] Inpatient Patient Summaryon 12-20-2022 Inpatient Patient Summary Normal [facility] Message from Medicareon 11-23 Message from Medicare [id number]# 1.00CD:127 Normal [facility] Monitor Recordon 12-20-2022 Monitor Record [id number]# 1.00CD:127 Normal [facility] Monitor Record [id number]# 1.00CD:127 Normal [facility] Monitor Record [id number]# 1.00CD:127 Normal [facility] Progress Note-Nurseon 2022 Progress Note-Nurse SBAR report called fanta Robert. Patient was transferred into wheelchair x2 stand pivot. Patient discharged to [facility] room 17. Transport by Samantha Lambert POCT. Normal [facility] Transfer Documentson 023 Transfer Documents [id number]#1 .00CD:127 Normal [facility] eGFROrdered By: SYSTEM [facility] [employer] on 12-20-2022 GFR/1.73 sq M.predicted among non-blacks MDRD (S/P/Bld) [Vol rate/Area] 77 mL/min/1.73 m2 Normal >=59 [facility] Chem S Comment on above: Order Comment: Order added by Discern Expert. Result Comment: Shark Biologist earnest kidney disease could be indicated at eGFR's of less than 60 mL/min/1.73m2. Kidney failure is indicated at less than 15 mL/min/1.73m2. Performed By: #### 2 693244, 9234865, 55759244, 1046036 ####[facility] [address] [place] [address] Auto Diffon 12-19-2022 Basophils/100 WBC (Bld) 0.4 % Normal 0.0-2.0 F [facility] Comment on above: Order Comment: Order Added by Discern Expert. Performed By: #### 1 0032529, 6276140, 7646223, 5361852 ####[facility] [address] [place] [address] Basophils/Leukocytes Auto (Bld) [Pure # fraction] 0.0 E9/L Normal 0.0-0.2 [facility] Comment on above: Order Comment: Order Added by Discern Expert. Performed By: #### 1 6425198, 8382377, 4273465, 4854311 ####[facility] [address] [place] [address] Eosinophils/100 WBC (Bld) 4.2 % Normal 0.0-8.0 [facility] Comment on above: Order Comment: Order Added by Bethany Expert. Performed By: #### 1 2118574, 6942207, 7470314, 7260475 ####[address] [place] [address] Eosinophils/Leukocytes Auto (Bld) [Pure # fraction] 0.6 E9/L High 0.0-0.5 [facility] Comment on above: Order Comment: Order Added by Discern Expert. Performed By: #### 1 9904685, 2056675, 9645105, 7286419 ####[address] [place] [address] Lymphocytes/100 WBC (Bld) 7.3 % Low 14.0-50.0 [facility] Comment on above: Order Comment: Order Added by Bethany Expert. Performed By: #### 1 7787078, 2020654, 2929970, 9959928 ####[address] [address] Lymphocytes/Leukocytes Auto (Bld) [Pure # fraction] 1.0 E9/L Normal 1.0-4.0 [facility] Comment on above: Order Comment: Order Added by Bethany Expert. Performed By: #### 1 4395001, 9119008, 6361745, 8569894 ####[address] [address] Monocytes/100 WBC (Bld) 6.5 % Normal 4.0-14.0 [facility] Comment on above: Order Comment: Order Added by Bethany Expert. Performed By: #### 1 9115366, 7206063, 3090043, 3846210 ####[address] [place] [address] Monocytes/Leukocytes Auto (Bld) [Pure # fraction] 0.9 E9/L Normal 0.2-1.0 [facility] Comment on above: Order Comment: Order Added by Bethany Expert. Performed By: #### 1 7714442, 4875325, 9306326, 3775606 ####[address] [place] [address] Neutrophils/100 WBC (Bld) 81.6 % High 36.0-75.0 [facility] Comment on above: Order Comment: Order Added by Discern Expert. Performed By: #### 1 1799120, 5984037, 7693914, 8385375 ####[facility] [address] [place] [address] Neutrophils/Leukocytes Auto (Bld) [Pure # fraction] 10.7 E9/L High 2.0-7.5 [facility] Comment on above: Order Comment: Order Added by Discern Expert. Performed By: #### 1 6627383, 6568605, 6373394, 3378612 ####[facility] [address] [place] [address] BMPon 12-19-2022 Anion gap [Moles/Vol] 11 mmol/L Normal 6-16 [facility] Comment on above: Performed By: #### 1 5680010, 7781778, 6197132, 2806373 ####[facility] [address] [place] [address] Calcium [Mass/Vol] 8.5 mg/dL Low 8.9-11.1 [facility] Comment on above: Performed By: #### 1 3819657, 4860782, 4963163, 0480324 ####[facility] [address] [place] [address] Chloride [Moles/Vol] 103 mmol/L Normal 101-111 [facility] Comment on above: Performed By: #### 1 4524501, 3579159, 9571516, 2028261 ####[facility] [address] [place] [address] CO2 [Moles/Vol] 28 mmol/L Normal 21-31 [facility] Comment on above: Performed By: #### 1 9969609, 3346875, 2370797, 9059110 ####[facility] [address] [place] [address] Creatinine [Mass/Vol] 1.2 mg/dL Normal 0.5-1.3 [facility] Comment on above: Performed By: #### 1 3809054, 1703049, 9582255, 2420770 ####[facility] [address] [place] [address] Glucose [Mass/Vol] 86 mg/dL Normal 55-199 [facility] Comment on above: Result Comment: If t his glucose result represents a fasting glucose, interpretation should refer to the following reference range: 55-99 mg/dL Performed By: #### 1 9290951, 1932422, 6686331, 3814489 ####[facility] [address] [place] [address] Potassium [Moles/Vol] 4.5 mmol/L Normal 3.5-5.3 [facility] Comment on above: Performed By: #### 1 0051545, 1128638, 6783164, 0669501 ####[facility] [address] [place] [address] Sodium [Moles/Vol] 137 mmol/L Normal 135-145 [facility] Comment on above: Performed By: #### 1 1044259, 3487284, 7288157, 4366586 ####[facility] [address] [place] [address] Urea nitrogen [Mass/Vol] 35 mg/dL High 5-21 [facility] Comment on above: Performed By: #### 1 6073664, 9874611, 4837570, 0224076 ####[facility] [address] [place] [address] Urea nitrogen/Creatinine [Mass ratio] 29 No Units High 10-20 [facility] Comment on above: Performed By: #### 1 7073647, 9846828, 9577956, 2972425 ####[facility] [address] [place] [address] CBC w/ Auto Diffon 3 Erythrocyte distribution width (RBC) [Ratio] 15.0 % High 10.9-14.2 [facility] Comment on above: Performed By: #### 1 9055323, 0776198, 4071418, 0659085 ####[address] [place] [address] Hematocrit (Bld) [Volume fraction] 38.4 % Normal 37.7-49.0 [facility] Comment on above: Performed By: #### 1 9012572, 8951875, 5089214, 9636421 ####[facility] [address] [place] [address] Hemoglobin (Bld) [Mass/Vol] 12.7 g/dL Low 13.5-17.5 [facility] Comment on above: Performed By: #### 1 2837773, 6728171, 5835015, 8473361 ####[address] MCH (RBC) [Entitic mass] 27.9 pg Normal 27.0-34.0 [facility] Comment on above: Performed By: #### 1 7934735, 5550845, 2447600, 9516020 ####[address] MCHC (RBC) [Mass/Vol] 32.9 g/dL Normal 31.4-36.0 [facility] Comment on above: Performed By: #### 1 9874258, 5861701, 5117608, 3468344 ####[address] [address] MCV (RBC) [Entitic vol] 84.8 fL Normal 80.0-100.0 [facility] Comment on above: Performed By: #### 1 4756333, 1516042, 3878418, 4780993 ####[address] [address] Platelet mean volume (Bld) [Entitic vol] 9.5 fL Normal 6.4-10.8 [facility] Comment on above: Performed By: #### 1 4756756, 1535736, 9794997, 5726262 ####[address] [address] Platelets (Bld) [#/Vol] 230.0 E9/L Normal 150.0-500.0 [facility] Comment on above: Performed By: #### 1 0793504, 6068058, 7853613, 6647501 ####[facility] [address] [place] [address] RBC (Bld) [#/Vol] 4.5 E12/L Normal 4.3-5.9 [facility] Comment on above: Performed By: #### 1 6736695, 6942697, 1981118, 1532457 ####[facility] [address] [place] [address] WBC corrected for nucl RBC Auto (Bld) [#/Vol] 13.1 E9/L High 4.0-11.0 [facility] Comment on above: Performed By: #### 1 4017183, 0882378, 8387637, 6833369 ####[facility] [address] [place] [address] CHEMISTRYOrdered By: Lab ROP User on 12-19-2022 Glucose [Mass/Vol] 210 mg/dL High 55 - 99 mg/dL [facility] [place] Subsection Comment on above: Result Comment: Gareth GARDINER POC Device SN [id number] Invalid Interpretation Code [facility] Subsection POC User ID [id number] Invalid Interpretation Code [facility]section POC Username SHER GAVIRIA Invalid Interpretation Code [facility] Subsection Glucose [Mass/Vol] 111 mg/dL High 55 - 99 mg/dL [facility] Subsection Comment on above: Result Comment: Gareth GARDINER POC Device SN [id number] Invalid Interpretation Code [facility] Subsection POC User ID [id number] Invalid Interpretation Code [facility] Subsection POC Username KELLEN HERNANDEZ Invalid Interpretation Code [facility] Subsection CHEMISTRYOrdered By: SYSTEM SYSTEM on 12-19-2022 Anion gap [Moles/Vol] 11 mmol/L Normal 6 - 16 mEq/L [facility] Calcium [Mass/Vol] 8.5 mg/dL Low 8.9 - 11. 1 mg/dL [facility] Chloride [Moles/Vol] 103 mmol/L Normal 101 - 1 11 mmol/L [facility] CO2 [Moles/Vol] 28 mmol/L Normal 21 - 31 mmol/L [facility] Creatinine [Mass/Vol] 1.2 mg/dL Normal 0.5 - 1.3 mg/dL [facility] Remisol GFR/1.73 sq M.predicted among non-blacks MDRD (S/P/Bld) [Vol rate/Area] 62 mL/min/1.73 m2 Normal >=59mL/min/ 1.73 m2 [facility] Chem S Glucose [Mass/Vol] 86 mg/dL Normal 55 - 199 mg/dL [facility] Remisol Potassium [Moles/Vol] 4.5 mmol/L Normal 3.5 - 5.3 mmol/L [facility] Remisol Sodium [Moles/Vol] 137 mmol/L Normal 135 - 145 mmol/L [facility] Remisol Urea nitrogen [Mass/Vol] 35 mg/dL High 5 - 21 mg/dL [facility] Remisol Urea nitrogen/Creatinine [Mass ratio] 29 mg/mg High 10 - 20 [facility] Remisol Capillary Glucose POCon 11-22 Glucose [Mass/Vol] 210 mg/dL High 55-99 [facility] Comment on above: Result Comment: Gareth GARDINER Performed By: #### 2 [id number] ####[facility] [address] [place] [address] Glucose [Mass/Vol] 111 mg/dL High - [facility] Comment on above: Result Comment: aGreth GARDINER Performed By: #### 2 [id number] ####[facility] [address] [place] [address] Glucose [Mass/Vol] 201 mg/dL High 55- [facility] Comment on above: Result Comment: Gareth GARDINER Performed By: #### 2 13366753 ####[facility] [address] [place] [address] Glucose [Mass/Vol] 93 mg/dL Normal 55-99 [facility] Comment on above: Result Comment: Gareth GARDINER Performed By: #### 2 01827859 ####[facility] [address] [place] [address] HEMATOLOGYOrdered By: SYSTEM SYSTEM on 12-19-2022 Basophils/100 [...] 9.5 fL Normal 6.4 - 10.8 fL [facility] HemeAutoSS Platelets (Bld) [#/Vol] 230.0 E9/L Normal 150. 0 - 500.0 E9/L [facility] HemeAutoSS RBC (Bld) [#/Vol] 4.5 E12/L Normal 4.3 - 5.9 E12/L [facility] HemeAutoSS WBC corrected for nucl RBC Auto (Bld) [#/Vol] 13.1 E9/L High 4.0 - 11.0 E9/L [facility] HemeAutoSS Monitor Recordon 12-19-2022 Monitor Record [id number]# 1.00CD:127 Normal [facility] Monitor Record [id number]# 1.00CD:127 Normal [facility] Progress Note-Physicianon Progress Note-Physician Normal [facility] Comment on above: Result Comment: Elec tronically Signed By: MICHAEL POTTS, Jamir\.br\Date and Time Signed: 12/19/22 09:47 EDT eGFRon 12-19-2022 GFR/1.73 sq M.predicted among non-blacks MDRD (S/P/Bld) [Vol rate/Area] 62 mL/min/1.73 m2 Normal >=59 [facility] Comment on above: Order Comment: Order added by Discern Expert. Result Comment: Shark Biologist earnest kidney disease could be indicated at eGFR's of less than 60 mL/min/1.73m2. Kidney failure is indicated at less than 15 mL/min/1.73m2. Performed By: #### 1 5889999, 7942573, 8653735, 5841427 ####[facility] [address] [place] [address] Auto Diffon 12-18-2022 Basophils/100 WBC (Bld) 0.4 % Normal 0.0-2.0 [facility] Comment on above: Order Comment: Order Added by Discern Expert. Performed By: #### 2 275808, 1793828 ####[address] [place] [address] Basophils/Leukocytes Auto (Bld) [Pure # fraction] 0.1 E9/L Normal 0.0-0.2 [facility] Comment on above: Order Comment: Order Added by Discern Expert. Performed By: #### 2 998852, 6686203 ####[address] [address] Eosinophils/100 WBC (Bld) 2.8 % Normal 0.0-8.0 [facility] Comment on above: Order Comment: Order Added by Discern Expert. Performed By: #### 2 190213, 5207611 ####[address] [address] Eosinophils/Leukocytes Auto (Bld) [Pure # fraction] 0.4 E9/L Normal 0.0-0.5 [facility] Comment on above: Order Comment: Order Added by Discern Expert. Performed By: #### 2 219910, 1079083 ####[address] [address] Lymphocytes/100 WBC (Bld) 9.0 % Low 14.0-50.0 [facility] Comment on above: Order Comment: Order Added by Discern Expert. Performed By: #### 2 229765, 6380517 ####[address] [address] Lymphocytes/Leukocytes Auto (Bld) [Pure # fraction] 1.3 E9/L Normal 1.0-4.0 [facility] Comment on above: Order Comment: Order Added by Discern Expert. Performed By: #### 2 119759, 6316036 ####[address] [address] Monocytes/100 WBC (Bld) 8.3 % Normal 4.0-14.0 [facility] Comment on above: Order Comment: Order Added by Discern Expert. Performed By: #### 2 302653, 7062202 ####[facility] [address] [place] [address] Monocytes/Leukocytes Auto (Bld) [Pure # fraction] 1.3 E9/L High 0.2-1.0 [facility] Comment on above: Order Comment: Order Added by Discern Expert. Performed By: #### 2 467918, 8333627 ####[address] [address] Neutrophils/100 WBC (Bld) 79.5 % High 36.0-75.0 [facility] Comment on above: Order Comment: Order Added by Discern Expert. Performed By: #### 2 245541, 6950952 ####[address] [address] Neutrophils/Leukocytes Auto (Bld) [Pure # fraction] 11.9 E9/L High 2.0-7.5 [facility] Comment on above: Order Comment: Order Added by Discern Expert. Performed By: #### 2 139886, 1133116 ####[address] [address] Basophils/100 WBC (Bld) 0.6 % Normal 0.0-2.0 [facility] Comment on above: Order Comment: Order Added by Discern Expert. Performed By: #### 1 3998216, 4038865, 52384254, 9935268, 48843238, 98645933, 6126209 ####[address] [address] Basophils/Leukocytes Auto (Bld) [Pure # fraction] 0.1 E9/L Normal 0.0-0.2 [facility] Comment on above: Order Comment: Order Added by Discern Expert. Performed By: #### 1 9699132, 5108050, 69750042, 1336853, 43873743, 88283136, 4886235 ####[address] [address] Eosinophils/100 WBC (Bld) 2.0 % Normal 0.0-8.0 [facility] Comment on above: Order Comment: Order Added by Discern Expert. Performed By: #### 1 7305458, 1652961, 22778216, 9297308, 32188362, 01091701, 9983088 ####[facility] [address] [place] [address] Eosinophils/Leukocytes Auto (Bld) [Pure # fraction] 0.3 E9/L Normal 0.0-0.5 [facility] Comment on above: Order Comment: Order Added by Discern Expert. Performed By: #### 1 5824159, 8940046, 16112077, 7486044, 06717496, 57748033, 2480375 ####[address] [place] [address] Lymphocytes/100 WBC (Bld) 7.6 % Low 14.0-50.0 [facility] Comment on above: Order Comment: Order Added by Discern Expert. Performed By: #### 1 8404770, 7490355, 85067336, 2613410, 35813252, 33403278, 3790582 ####[address] [address] Lymphocytes/Leukocytes Auto (Bld) [Pure # fraction] 1.3 E9/L Normal 1.0-4.0 [facility] Comment on above: Order Comment: Order Added by Discern Expert. Performed By: #### 1 9889390, 9195783, 90357926, 9298939, 11557142, 61953728, 1745002 ####[address] [place] [address] Monocytes/100 WBC (Bld) 7.8 % Normal 4.0-14.0 [facility] Comment on above: Order Comment: Order Added by Discern Expert. Performed By: #### 1 0787949, 6021514, 12839902, 7326164, 71138237, 73753760, 4070586 ####[address] [place] [address] Monocytes/Leukocytes Auto (Bld) [Pure # fraction] 1.3 E9/L High 0.2-1.0 [facility] Comment on above: Order Comment: Order Added by Discern Expert. Performed By: #### 1 1297788, 4720319, 85450430, 9343107, 28768031, 64186527, 6403812 ####[facility] [address] [place] [address] Neutrophils/100 WBC (Bld) 82.0 % High 36.0-75.0 [facility] Comment on above: Order Comment: Order Added by Discern Expert. Performed By: #### 1 4758146, 0184280, 51984090, 0957666, 70549687, 58068289, 2069835 ####[facility] [address] [place] [address] Neutrophils/Leukocytes Auto (Bld) [Pure # fraction] 13.7 E9/L High 2.0-7.5 [facility] Comment on above: Order Comment: Order Added by Bethany Expert. Performed By: #### 1 8671817, 9999705, 76213769, 3865540, 40957230, 79216553, 4334387 ####[facility] [address] [place] [address] BMPon 12-18-2022 Creatinine [Mass/Vol] 1.6 mg/dL High 0.5-1.3 [facility] Comment on above: Performed By: #### 2 898397, 7256965, 4446137925, 87377117, 43629440 ####[facility] [address] [place] [address] Urea nitrogen [Mass/Vol] 47 mg/dL High 5-21 [facility] Comment on above: Performed By: #### 2 248418, 4750183, 8520605203, 31578069, 90005848 ####[facility] [address] [place] [address] Urea nitrogen/Creatinine [Mass ratio] 29 No Units High 10-20 [facility] Comment on above: Performed By: #### 2 292791, 7731433, 1194389259, 92124832, 36596681 ####[facility] [address] [place] [address] Anion gap [Moles/Vol] 12 mmol/L Normal 6-16 [facility] Comment on above: Performed By: #### 2 278109, 1037117, 4054567664, 64511976, 46535333 ####[facility] [address] [place] [address] Calcium [Mass/Vol] 8.7 mg/dL Low 8.9-11.1 [facility] Comment on above: Performed By: #### 2 430208, 9146278, 7211549646, 37100383, 87487550 ####[facility] [address] [place] [address] Chloride [Moles/Vol] 97 mmol/L Low 101-111 [facility] Comment on above: Performed By: #### 2 148709, 5470744, 5136106395, 96987429, 63305892 ####[facility] [address] [place] [address] CO2 [Moles/Vol] 32 mmol/L High 21-31 [facility] Comment on above: Performed By: #### 2 701514, 3487523, 7237378056, 59747167, 64334056 ####[facility] [address] [place] [address] Glucose [Mass/Vol] 131 mg/dL Normal 55-199 [facility] Comment on above: Result Comment: If t his glucose result represents a fasting glucose, interpretation should refer to the following reference range: 55-99 mg/dL Performed By: #### 2 581956, 0262903, 0779029172, 41099312, 36243860 ####[facility] [address] [place] [address] Potassium [Moles/Vol] 3.7 mmol/L Normal 3.5-5.3 [facility] Comment on above: Performed By: #### 2 594317, 5838235, 6687342063, 61261258, 42228595 ####[facility] [address] [place] [address] Sodium [Moles/Vol] 137 mmol/L Normal 135-145 [facility] Comment on above: Performed By: #### 2 381388, 6919030, 1614261966, 16277267, 27035111 ####[facility] [address] [place] [address] Creatinine [Mass/Vol] 1.8 mg/dL High 0.5-1.3 [facility] Comment on above: Performed By: #### 1 5938377, 8032848, 73373727, 2688120, 18204758, 83851170, 8015613 ####[facility] [address] [place] [address] Urea nitrogen [Mass/Vol] 49 mg/dL High 5-21 [facility] Comment on above: Performed By: #### 1 5933609, 7291114, 65253622, 3203787, 57785864, 07853157, 0360013 ####[facility] [address] [place] [address] Urea nitrogen/Creatinine [Mass ratio] 27 No Units High 10-20 [facility] Comment on above: Performed By: #### 1 5924398, 8855534, 11967503, 0511147, 48533639, 13798056, 8805851 ####[facility] [address] [place] [address] Anion gap [Moles/Vol] 18 mmol/L High 6-16 [facility] Comment on above: Performed By: #### 1 0821077, 5058828, 68754578, 4323549, 64297338, 43236067, 3543808 ####[facility] [address] [place] [address] Calcium [Mass/Vol] 9.3 mg/dL Normal 8.9-11.1 [facility] Comment on above: Performed By: #### 1 8281022, 6004841, 27279310, 2732282, 95518181, 99438998, 3524039 ####[facility] [address] [place] [address] Chloride [Moles/Vol] 93 mmol/L Low 101-111 [facility] Comment on above: Performed By: #### 1 3042073, 2407045, 81818134, 3840377, 88103442, 53827032, 8457069 ####[facility] [address] [place] [address] CO2 [Moles/Vol] 29 mmol/L Normal 21-31 [facility] Comment on above: Performed By: #### 1 0008481, 4334524, 05835548, 9434797, 19909564, 71062608, 8985959 ####[facility] [address] [place] [address] Glucose [Mass/Vol] 137 mg/dL Normal 55-199 [facility] Comment on above: Result Comment: If t his glucose result represents a fasting glucose, interpretation should refer to the following reference range: 55-99 mg/dL Performed By: #### 1 4703773, 1728400, 39850565, 0671862, 97627335, 48836420, 3536784 ####[facility] [address] [place] [address] Potassium [Moles/Vol] 4.0 mmol/L Normal 3.5-5.3 [facility] Comment on above: Performed By: #### 1 2075216, 4791547, 21630230, 9717096, 21439761, 65259771, 3611993 ####[facility] [address] [place] [address] Sodium [Moles/Vol] 136 mmol/L Normal 135-145 [facility] Comment on above: Performed By: #### 1 8367276, 8778784, 27443360, 7619004, 51340267, 83001344, 0114460 ####[facility] [address] [place] [address] BNPon 12-18-2022 Int Ctr BNP Pass Normal [facility] Comment on above: Performed By: #### 1 1851690, 3716290, 50693709, 2772009, 99623804, 57902143, 3765902 ####[address] [place] [address] Natriuretic peptide B (Bld) [Mass/Vol] 219 pg/mL High 5-80 [facility] Comment on above: Performed By: #### 1 2425990, 1017720, 56789299, 8198829, 72013329, 59365120, 4625322 ####[facility] [address] [place] [address] CBC w/ Auto Diffon Erythrocyte distribution width (RBC) [Ratio] 14.8 % High 10.9-14.2 [facility] Comment on above: Performed By: #### 2 614376, 0418329 ####[place] [address] Hematocrit (Bld) [Volume fraction] 37.8 % Normal 37.7-49.0 [facility] Comment on above: Performed By: #### 2 626399, 6595040 ####[address] [address] Hemoglobin (Bld) [Mass/Vol] 12.7 g/dL Low 13.5-17.5 [facility] Comment on above: Performed By: #### 2 137486, 0287228 ####[address] [address] MCH (RBC) [Entitic mass] 28.3 pg Normal 27.0-34.0 [facility] Comment on above: Performed By: #### 2 845362, 3224343 ####[address] [address] MCHC (RBC) [Mass/Vol] 33.6 g/dL Normal 31.4-36.0 [facility] Comment on above: Performed By: #### 2 516136, 5722252 ####[place] [address] MCV (RBC) [Entitic vol] 84.2 fL Normal 80.0-100.0 [facility] Comment on above: Performed By: #### 2 488800, 3018999 ####[address] [address] Platelet mean volume (Bld) [Entitic vol] 9.2 fL Normal 6.4-10.8 [facility] Comment on above: Performed By: #### 2 223239, 3243789 ####[address] [address] Platelets (Bld) [#/Vol] 219.0 E9/L Normal 150.0-500.0 [facility] Comment on above: Performed By: #### 2 687338, 0055005 ####[place] [address] RBC (Bld) [#/Vol] 4.5 E12/L Normal 4.3-5.9 [facility] Comment on above: Performed By: #### 2 291869, 4315890 ####[place] [address] WBC corrected for nucl RBC Auto (Bld) [#/Vol] 15.0 E9/L High 4.0-11.0 [facility] Comment on above: Performed By: #### 2 871379, 8631814 ####[place] [address] Erythrocyte distribution width (RBC) [Ratio] 14.9 % High 10.9-14.2 [facility] Comment on above: Performed By: #### 1 1947774, 0455604, 96104648, 3320055, 41386838, 34530008, 0748864 ####[address] [address] Hematocrit (Bld) [Volume fraction] 42.8 % Normal 37.7-49.0 [facility] Comment on above: Performed By: #### 1 6515211, 6840919, 64759166, 9141469, 47906186, 86524308, 8440699 ####[facility] [address] [place] [address] Hemoglobin (Bld) [Mass/Vol] 14.3 g/dL Normal 13.5-17.5 [facility] Comment on above: Performed By: #### 1 5060632, 8208700, 36070677, 9427248, 94688294, 96101432, 4958226 ####[facility] [address] [place] [address] MCH (RBC) [Entitic mass] 28.1 pg Normal 27.0-34.0 [facility] Comment on above: Performed By: #### 1 9383713, 9516919, 51223099, 4741158, 72956134, 26933736, 8936276 ####[place] [address] MCHC (RBC) [Mass/Vol] 33.3 g/dL Normal 31.4-36.0 [facility] Comment on above: Performed By: #### 1 3091830, 9609917, 94187476, 0040690, 03974540, 80405497, 0398203 ####[address] [address] MCV (RBC) [Entitic vol] 84.3 fL Normal 80.0-100.0 [facility] Comment on above: Performed By: #### 1 0404985, 8231359, 41281795, 4116647, 87218567, 82408209, 7671845 ####[place] [address] [place] [address] Platelet mean volume (Bld) [Entitic vol] 9.8 fL Normal 6.4-10.8 [facility] Comment on above: Performed By: #### 1 4886220, 7418180, 20999229, 4769511, 17441426, 27416413, 9416321 ####[place] [address] [place] [address] Platelets (Bld) [#/Vol] 234.0 E9/L Normal 150.0-500.0 [facility] Comment on above: Performed By: #### 1 8602065, 1313623, 29432683, 9020462, 87910806, 23403906, 5403851 ####[facility] [address] [place] [address] RBC (Bld) [#/Vol] 5.1 E12/L Normal 4.3-5.9 [facility] Comment on above: Performed By: #### 1 1543960, 7557664, 63599899, 3081593, 88602337, 00455206, 4974332 ####[facility] [address] [place] [address] WBC corrected for nucl RBC Auto (Bld) [#/Vol] 16.7 E9/L High 4.0-11.0 [facility] Comment on above: Result Comment: Slid e reviewed by JENNIFER. Performed By: #### 1 3062385, 3042695, 45393219, 2743407, 11829999, 01248518, 5046526 ####[facility] [address] [place] [address] CHEMISTRYOrdered By: SYSTEM SYSTEM on 12-18-2022 Troponin [...] 1.6 mg/dL High 0.5 - 1.3 mg/dL [facility] Remisol GFR/1.73 sq M.predicted among non-blacks MDRD (S/P/Bld) [Vol rate/Area] 44 mL/min/1.73 m2 Low >=59mL/min/ 1.73 m2 [facility] Chem S Glucose [Mass/Vol] 131 mg/dL Normal 55 - 199 mg/dL FT Remisol Potassium [Moles/Vol] 3.7 mmol/L Normal 3.5 - 5.3 mmol/L FT Remisol Procalcitonin 0.09 ng/mL Normal 0.00 - 0.50 ng/mL [facility] Remisol Sodium [Moles/Vol] 137 mmol/L Normal 135 - 145 mmol/L [facility] Remisol Troponin I.cardiac [Mass/Vol] 22.50 pg/mL Normal 15.90 - 38.40 pg/mL [facility] Remisol Urea nitrogen [Mass/Vol] 47 mg/dL High 5 - 21 mg/dL [facility] Remisol Urea nitrogen/Creatinine [Mass ratio] 29 mg/mg High 10 - 20 [facility] Remisol CHEMISTRYOrdered By: Yanet Apodaca on 12-18-2022 Troponin I.cardiac [Mass/Vol] 18.80 pg/mL Normal 15.90 - 38.40 pg/mL [facility] Remisol Natriuretic peptide B (Bld) [Mass/Vol] 219 pg/mL High 5 - 80 pg/mL [facility] HemeManSS CKon 12-18-2022 CK [Catalytic activity/Vol] 55 Int._Unit/L Normal 14-261 [facility] Comment on above: Performed By: #### 2 721693, 7317552, [id number], 52993643, 34537690 ####[facility] [address] [place] [address] COAGULATIONOrdered By: Rachael Apodaca on 12-18-2022 aPTT Coag (PPP) [Time] 30.6 s Normal 25.1 - 36.5 second(s) [facility] Auto Coag INR Coag (PPP) [Relative time] 1.1 {INR} Invalid Interpretation Code FT Auto Coag PT Coag (PPP) [Time] 12.5 s Normal 9.4 - 1 2.5 second(s) [facility] Auto Coag CT Head or Brain w/o Contras ton 12-18-2022 CT Head or Brain w/o Contrast Normal [facility] CT Spine Cervical w/o Contra ston 12-18-2022 CT Spine Cervical w/o Contrast Normal [facility] Capillary Glucose POCon 11-22 Glucose [Mass/Vol] 212 mg/dL High 55-99 [facility] Comment on above: Result Comment: Gareth GARDINER Performed By: #### 2 [id number] ####[facility] [address] [place] [address] Glucose [Mass/Vol] 97 mg/dL Normal 55-99 [facility] Comment on above: Result Comment: Yazmin bri Meter Performed By: #### 2 05556110 ####[facility] [address] [place] [address] Glucose [Mass/Vol] 119 mg/dL High 55-99 [facility] Comment on above: Result Comment: Gareth GARDINER Performed By: #### 2 80844083 ####[facility] [address] [place] [address] Glucose [Mass/Vol] 131 mg/dL High 55-99 [facility] Comment on above: Result Comment: Gareth GARDINER Performed By: #### 2 81994330 ####[facility] [address] [place] [address] Consent for Treatmenton 11-22 Consent for Treatment [id number]# 1.00CD:127 Normal [facility] ED Clinical Summaryon 2022 ED Clinical Summary Normal [facility] ED Note-Physicianon 12-19-19 23 ED Note-Physician Normal [facility] Comment on above: Result Comment: Elec tronically Signed By: Guilherme POTTS, Malcom\.br\Date and Time Signed: 12/18/22 04:33 EDT ED Patient Education Noteon 12-18-2022 ED Patient Education Note Normal [facility] ED Patient Summaryon 023 ED Patient Summary Normal [facility] ED Traumaon 12-18-2022 ED Trauma [id number]# 1.00CD:127 Normal [facility] HEMATOLOGYOrdered By: [...] 33.6 g/dL Normal 31.4 - 36.0 gm/dL [facility] HemeAutoSS MCV (RBC) [Entitic vol] 84.2 fL Normal 80.0 - 100.0 fL FT HemeAutoSS Platelet mean volume (Bld) [Entitic vol] 9.2 fL Normal 6.4 - 10.8 fL [facility] HemeAutoSS Platelets (Bld) [#/Vol] 219.0 E9/L Normal 150. 0 - 500.0 E9/L [facility] HemeAutoSS RBC (Bld) [#/Vol] 4.5 E12/L Normal 4.3 - 5.9 E12/L [facility] HemeAutoSS WBC corrected for nucl RBC Auto (Bld) [#/Vol] 15.0 E9/L High 4.0 - 11.0 E9/L [facility] HemeAutoSS Insurance Correspondence Off iceon 12-18-2022 Insurance Correspondence Office [id number]#1 .00CD:127 Normal [facility] Interdisciplinary Note - Santosh e Manageron 12-18-2022 Interdisciplinary Note - Exercise Science Instructor [facility] Comment on above: Result Comment: Elec tronically Signed By: Lucero Watson\.br\Date and Time Signed: 12/18/22 14:57 EDT Interdisciplinary Note - Dejuan singon 12-18-2022 Interdisciplinary Note - Nursing Patient he is confused and he does not able to answer my questions. informed staff in [facility] to send current medication list in fax.3N Normal [facility] Interdisciplinary Note - PTo n 12-18-2022 Interdisciplinary Note - PT Normal [facility] Laboratory - Microbiology an d Antimicrobial susceptibilityOrdered By: Karen Vergara on 12-18-2022 Bacteria identified Cx Nom (U) 10,000 cfu/ml Staphylococcus species Continuing incubation [facility] Monitor Recordon 12-18-2022 Monitor Record [id number]# 1.00CD:127 Normal [facility] No Panel InformationOrdered By: Karen Vergara on 12-18-2022 Blood Culture Charcoal Streptococcus spe cies Staphylococcus species coagulase negative In 1 of 2 blood culture bottles drawn. Isolated from aerobic bottle Preliminary gram stain results of gram positive cocci in clusters Result called to Dr. Mckinney by and results read back for confirmation on 12/19/2022 09:39:39 [facility] No Panel InformationOrdered By: [facility] on 12-18-2022 Blood Culture Charcoal No growth at 2 da ys. Final to follow at 7 days. [facility] PT & PTTon 12-18-2022 aPTT [...] the same coagulation reagent and instrumentation as [facility]. Currently there are no coagulation studies available worldwide for children to 14 days, and no normal ranges. Heparin therapeutic range (represented by Anti-Factor Xa activity of 0.2 - 0.4 U/mL) corresponds to PTT of 56.6 - 109.0 sec. Performed By: #### 1 0651084, 2492027, 48855766, 8510265, 00609153, 55618998, 1177150 ####[facility] [place] [address] INR Coag (PPP) [Relative time] 1.1 {INR} Invalid Interpretation Code [facility] Comment on above: Result Comment: INR results are specifically intended to assess patients stabilized on long-term Anticoagulation therapy suggested INR?s ?Less Intensive Anticoagulation? 2.0 ? 3.0Conventional Range 3.0 ? 4.5 Performed By: #### 1 7341471, 5549654, 12075356, 3037885, 01038733, 16481345, 7308986 ####[facility] [address] [place] [address] PT Coag (PPP) [Time] 12.5 second(s) Normal [...] the same coagulation reagent and instrumentation as [facility]. Currently there are no coagulation studies available worldwide for children to 14 days, and no normal ranges. Performed By: #### 1 9947657, 5347230, 11304223, 2214894, 60559053, 50809537, 1417335 ####[facility] [address] [place] [address] Procalcitoninon 12-18-2022 Procalcitonin .09 ng/mL Normal .00-.50 [facility] Comment on above: Result Comment: [...] to 24 hours. Performed By: #### 2 643638, 9989372, 8401565149, 90411808, 95301213 ####[facility] [address] [place] [address] RAD - Preliminary Cat Scan R eporton 12-18-2022 RAD - Preliminary Cat Scan Report [id number]# 1.00CD:127 Normal [facility] Troponin 0 Hr.on 12-18-2022 Troponin I.cardiac [Mass/Vol] 23.50 pg/mL Normal 15.90-38.40 [facility] Comment on above: Result Comment: The 95% CI (Confidence Interval) PPV (Positive Predictive Value) for myocardial infarction in females is 38 pg/mL, in males 51 pg/mL. The results should be used in conjunction with clinical conditions of myocardial infarction.([place] High Sensitivity Troponin I Instructions For Use, [place], December 2017) Performed By: #### 1 0512513, 7817962, 76698275, 4266748, 78561565, 64483545, 6042139 ####[facility] [address] [place] [address] Troponin 3 Hr.on 12-18-2022 Troponin I.cardiac [Mass/Vol] 18.80 pg/mL Normal 15.90-38.40 [facility] Comment on above: Result Comment: The 95% CI (Confidence Interval) PPV (Positive Predictive Value) for myocardial infarction in females is 38 pg/mL, in males 51 pg/mL. The results should be used in conjunction with clinical conditions of myocardial infarction.([place] High Sensitivity Troponin I Instructions For Use, [place] 2017) Performed By: #### 1 [id number] ####[facility] [address] [place] [address] Troponin 6 Hr.on 12-18-2022 Troponin I.cardiac [Mass/Vol] 22.50 pg/mL Normal 15.90-38.40 [facility] Comment on above: Result Comment: The 95% CI (Confidence Interval) PPV (Positive Predictive Value) for myocardial infarction in females is 38 pg/mL, in males 51 pg/mL. The results should be used in conjunction with clinical conditions of myocardial infarction.([place] High Sensitivity Troponin I Instructions For Use, [place], December 2017) Performed By: #### 2 121218, 7008560, 0005609169, 83047400, 25859584 ####[facility] [address] [place] [address] Troponin 9 Hr.on 12-18-2022 Troponin I.cardiac [Mass/Vol] 18.90 pg/mL Normal 15.90-38.40 [facility] Comment on above: Result Comment: The 95% CI (Confidence Interval) PPV (Positive Predictive Value) for myocardial infarction in females is 38 pg/mL, in males 51 pg/mL. The results should be used in conjunction with clinical conditions of myocardial infarction.([facility] High Sensitivity Troponin I Instructions For Use, Claudia [place], December 2017) Performed By: #### 1 1609837 ####[place] [address] UA With Cult Reflexon 2022 Bacteria LM Ql (Urine sed) TRACE Normal Trace [facility] Comment on above: Performed By: #### 1 5009196, 2118117 ####[place] [address] Bilirubin Ql (U) Negative Normal Negative [facility] Comment on above: Performed By: #### 1 0196824, 2558365 ####[address] [address] Clarity (U) CLEAR Normal Clear [facility] Comment on above: Performed By: #### 1 8911610, 0017367 ####[address] [address] Color (U) YELLOW Normal Yellow [facility] Comment on above: Performed By: #### 1 8240885, 4620749 ####[address] [address] Epithelial cells.squamous LM.HPF (Urine sed) [#/Area] 0-2 Normal 0-2 [facility] Comment on above: Performed By: #### 1 0800176, 6589520 ####[address] [address] Glucose Test strip (U) [Mass/Vol] Negative Normal Negative [facility] Comment on above: Performed By: #### 1 2271241, 7765491 ####[facility] [address] [place] [address] Hemoglobin Ql (U) TRACE Abnormal Negative [facility] Comment on above: Performed By: #### 1 6475358, 0238984 ####[facility] [address] [place] [address] Ketones (U) [Mass/Vol] Negative Normal Negative [facility] Comment on above: Performed By: #### 1 5427757, 4761140 ####[facility] [address] [place] [address] Vale.plasma/Vale.R BC (Bld) [Mass ratio] 0-3 Normal 0-3 [facility] Comment on above: Performed By: #### 1 1581999, 1222250 ####[facility] [address] [place] [address] Nitrite Ql (U) Negative Normal Negative [facility] Comment on above: Performed By: #### 1 4681385, 5663237 ####[facility] [address] [place] [address] pH (U) 6.5 [pH] Invalid Interpretation Code 5.0-9.0 [facility] Comment on above: Performed By: #### 1 0703672, 4364815 ####[facility] [address] [place] [address] Protein (U) [Mass/Vol] Negative Normal Negative [facility] Comment on above: Performed By: #### 1 9903228, 9914427 ####[place] [address] [place] [address] Specific gravity (U) [Rel density] 1.020 Invalid Interpretation Code 1.005-1.030 [facility] Comment on above: Performed By: #### 1 8305621, 6896428 ####[facility] [address] [place] [address] Type of Urine collection method Clean Catch Normal [facility] Comment on above: Performed By: #### 1 0808115, 4863240 ####[facility] [address] [place] [address] Urobilinogen Qn (U) 0.2 {Lei'U}/dL Normal 0.0-1.0 [facility] Comment on above: Performed By: #### 1 7102573, 9517438 ####[facility] [address] [place] [address] WBC Auto Ql (U) 3+ Abnormal Negative [facility] Comment on above: Performed By: #### 1 7935190, 6988510 ####[facility] [address] [place] [address] WBC LM.HPF (Urine sed) [#/Area] /[HPF] Abnormal 0-5 [facility] Comment on above: Performed By: #### 1 4389749, 9842307 ####[facility] [address] [place] [address] URINALYSISOrdered By: Houston Castillo on 12-18-2022 Bacteria LM Ql (Urine sed) Trace /HPF Normal Trace/HPF FT UA Auto SS Bilirubin Ql (U) Negative (12/18/22 4:45 PM) Normal Negative [facility] UA Auto SS Clarity (U) Clear (12/18/22 4:45 PM) Normal Clear [facility] UA Auto SS Color (U) Yellow (12/18/22 [...] PM) Normal Negative FT [facility]A Auto SS Vale.plasma/Vale.R BC (Bld) [Mass ratio] 0-3 /HPF Normal 0-3/HPF [facility] UA Au to SS Nitrite Ql (U) Negative (12/18/22 4:45 PM) Normal Negative FT [facility]A Auto SS pH (U) 6.5 *NA* (12/18/22 4:45 PM) Invalid Interpretation Code 5.0 - 9.0 [facility] UA Auto SS Protein (U) [Mass/Vol] Negative (12/18/22 4:45 PM) Normal Negative [facility] UA Auto SS Specific gravity (U) [Rel density] 1.020 *NA* (12/18/22 4:45 PM) Invalid Interpretation Code 1.005 - 1.030 FT UA Auto SS UA Spec Desc Clean Catch (12/18/22 4:45 PM) Normal [facility] UA Auto SS Urobilinogen Qn (U) 0.3284510 {Lei'U}/dL Normal 0.0 - 1.0 EU/dL FT UA Auto SS WBC Auto Ql (U) 3+ *ABN* (12/18/22 4:45 PM) Invalid Interpretation Code Negative [facility] UA Auto SS WBC LM.HPF (Urine sed) [#/Area] /[HPF] Invalid Interpretation Code 0-5/HPF FT UA Auto SS XR Chest Single Viewon 12-18 XR Chest Single View Normal [facility] XR Pelvis 1 or 2 Viewson XR Pelvis 1 or 2 Views Normal [place] [facility] eGFRon 12-18-2022 GFR/1.73 sq M.predicted among non-blacks MDRD (S/P/Bld) [Vol rate/Area] 44 mL/min/1.73 m2 Low >=59 [facility] Comment on above: Order Comment: Order added by Discern Expert. Result Comment: Shark Biologist earnest kidney disease could be indicated at eGFR's of less than 60 mL/min/1.73m2. Kidney failure is indicated at less than 15 mL/min/1.73m2. Performed By: #### 2 863478, 0263776, [id number], 79255600, 04648042 ####[facility] [address] [place] [address] GFR/1.73 sq M.predicted among non-blacks MDRD (S/P/Bld) [Vol rate/Area] 38 mL/min/1.73 m2 Low >=59 [facility] Comment on above: Order Comment: Order added by Discern Expert. Result Comment: Shark Biologist earnest kidney disease could be indicated at eGFR's of less than 60 mL/min/1.73m2. Kidney failure is indicated at less than 15 mL/min/1.73m2. Performed By: #### 1 6123654, 1624277, 62521526, 1379066, 40645603, 64817309, 7870040 ####[facility] [address] [place] [address] Capillary Glucose POCon 11-22 Glucose [Mass/Vol] 165 mg/dL High [address] [place] [address] Comment on above: Result Comment: Yazmin bri Meter Performed By: #### 2 82330161 ####[facility] [address] [place] [address] Glucose [Mass/Vol] 184 mg/dL [address] [facility] Comment on above: Performed By: #### 2 53338399 ####[facility] [address] [place] [address] Capillary Glucose POCon 11-22 Glucose [Mass/Vol] 184 mg/dL [address] Comment on above: Result Comment: Yazmin bri Meter Performed By: #### 2 25435354 ####[facility] [address] [place] [address] Glucose [Mass/Vol] 141 mg/dL [address] [facility] Comment on above: Result Comment: Yazmin bri Meter Performed By: #### 2 05409248 ####[facility] [address] [place] [address] Capillary Glucose POCon 11-22 Glucose [Mass/Vol] 183 mg/dL [address] Comment on above: Result Comment: Yazmin bri Meter Performed By: #### 2 06963736 ####[facility] [address] [place] [address] Glucose [Mass/Vol] 147 mg/dL [address] Comment on above: Result Comment: Yazmin bri Meter Performed By: #### 2 76614139 ####[facility] [address] [place] [address] Capillary Glucose POCon 11-22 Glucose [Mass/Vol] 188 mg/dL High [facility] Comment on above: Result Comment: Yazmin bri Meter Performed By: #### 2 11985126 ####[facility] [address] [place] [address] Glucose [Mass/Vol] 162 mg/dL High [facility] Comment on above: Result Comment: Yazmin bri Meter Performed By: #### 2 21951473 ####[facility] [address] [place] [address] Auto Diffon 12-13-2022 Basophils/100 WBC (Bld) 0.0 % Normal 0.0-2.0 [facility] Comment on above: Order Comment: Order Added by Discern Expert. Performed By: #### 1 2687163, 7580411, 741135480, 0601328, 6471745 ####[address] [address] Basophils/Leukocytes Auto (Bld) [Pure # fraction] 0.0 E9/L Normal 0.0-0.2 [facility] Comment on above: Order Comment: Order Added by Discern Expert. Performed By: #### 1 5947563, 6557161, 839847210, 7622307, 3955829 ####[facility] [address] [place] [address] Eosinophils/100 WBC (Bld) 7.6 % Normal 0.0-8.0 [facility] Comment on above: Order Comment: Order Added by Discern Expert. Performed By: #### 1 0399192, 8053180, 500479842, 4200926, 8699125 ####[place] [address] [place] [address] Eosinophils/Leukocytes Auto (Bld) [Pure # fraction] 1.0 E9/L High 0.0-0.5 [facility] Comment on above: Order Comment: Order Added by Discern Expert. Performed By: #### 1 2070988, 7649530, 822122291, 1866229, 0657594 ####[place] [address] [place] [address] Lymphocytes/100 WBC (Bld) 10.3 % Low 14.0-50.0 [facility] Comment on above: Order Comment: Order Added by Discern Expert. Performed By: #### 1 7820577, 0138472, 388407276, 1081919, 7604369 ####[place] [address] [place] [address] Lymphocytes/Leukocytes Auto (Bld) [Pure # fraction] 1.3 E9/L Normal 1.0-4.0 [facility] Comment on above: Order Comment: Order Added by Bethany Expert. Performed By: #### 1 5317673, 8713215, 457305724, 6101485, 6427406 ####[address] [address] Monocytes/100 WBC (Bld) 9.6 % Normal 4.0-14.0 [facility] Comment on above: Order Comment: Order Added by Bethany Expert. Performed By: #### 1 4187503, 2412555, 630531191, 2989694, 9763191 ####[address] [address] Monocytes/Leukocytes Auto (Bld) [Pure # fraction] 1.2 E9/L High 0.2-1.0 [facility] Comment on above: Order Comment: Order Added by Bethany Expert. Performed By: #### 1 4145474, 4144632, 080721363, 9741567, 5808861 ####[place] [address] [place] [address] Neutrophils/100 WBC (Bld) 72.5 % Normal 36.0-75.0 [facility] Comment on above: Order Comment: Order Added by Bethany Expert. Performed By: #### 1 9274066, 7111314, 562918423, 7072106, 8542980 ####[place] [address] [place] [address] Neutrophils/Leukocytes Auto (Bld) [Pure # fraction] 9.0 E9/L High 2.0-7.5 [facility] Comment on above: Order Comment: Order Added by Discern Expert. Performed By: #### 1 5876261, 9782807, 120347767, 8907956, 5111060 ####[place] [address] [place] [address] CBC w/ Auto Diffon 3 Erythrocyte distribution width (RBC) [Ratio] 15.0 % High 10.9-14.2 [facility] Comment on above: Performed By: #### 1 8017364, 1499340, 570182363, 4825241, 0735422 ####[place] [address] [place] [address] Hematocrit (Bld) [Volume fraction] 45.2 % Normal 37.7-49.0 [facility] Comment on above: Performed By: #### 1 5889713, 7905700, 433733223, 7532318, 4449083 ####[place] [address] [place] [address] Hemoglobin (Bld) [Mass/Vol] 14.8 g/dL Normal 13.5-17.5 [facility] Comment on above: Performed By: #### 1 1608868, 3618081, 048522165, 0060857, 1506706 ####[place] [address] [place] [address] MCH (RBC) [Entitic mass] 27.8 pg Normal 27.0-34.0 [facility] Comment on above: Performed By: #### 1 0678654, 2207172, 357217148, 8962885, 6461406 ####[place] [address] [place] [address] MCHC (RBC) [Mass/Vol] 32.7 g/dL Normal 31.4-36.0 [facility] Comment on above: Performed By: #### 1 3858664, 1123312, 731285247, 6574834, 1795381 ####[facility] [address] [place] [address] MCV (RBC) [Entitic vol] 85.0 fL Normal 80.0-100.0 [facility] Comment on above: Performed By: #### 1 5032082, 5768464, 001815505, 1205457, 4407495 ####[place] [address] [place] [address] Platelet mean volume (Bld) [Entitic vol] 9.4 fL Normal 6.4-10.8 [facility] Comment on above: Performed By: #### 1 2961961, 7615238, 829258560, 9154692, 6258235 ####[address] [address] Platelets (Bld) [#/Vol] 193.0 E9/L Normal 150.0-500.0 [facility] Comment on above: Performed By: #### 1 0235514, 0727182, 917364493, 0362510, 0547445 ####[address] [address] RBC (Bld) [#/Vol] 5.3 E12/L Normal 4.3-5.9 [facility] Comment on above: Performed By: #### 1 8645335, 2558294, 654868171, 2336039, 2690037 ####[address] [address] WBC corrected for nucl RBC Auto (Bld) [#/Vol] 12.5 E9/L High 4.0-11.0 [facility] Comment on above: Performed By: #### 1 [id number], 8145505, 105126321, 8321115, 1434554 ####[address] [place] [address] CMPon 12-13-2022 Albumin [Mass/Vol] 3.6 g/dL Normal 3.3-5.0 [facility] Comment on above: Performed By: #### 1 4782042, 2182153, 233159790, 2701320, 6455156 ####[facility] [address] [place] [address] Albumin/Globulin (S) [Mass conc ratio] 1.0 Low 1.1-2.2 [facility] Comment on above: Performed By: #### 1 9410362, 0708985, 544518431, 5277869, 4562845 ####[facility] [address] [place] [address] ALP [Catalytic activity/Vol] 49 Int._Unit/L Normal 21-98 [facility] Comment on above: Performed By: #### 1 9906746, 3510640, 603495825, 4807893, 3529808 ####[facility] [address] [place] [address] ALT No additional P-5'-P [Catalytic activity/Vol] 21 Int._Unit/L Normal 6-46 [facility] Comment on above: Performed By: #### 1 9548789, 7260387, 100742215, 1033848, 5203360 ####[facility] [address] [place] [address] Anion gap [Moles/Vol] 16 mmol/L Normal 6-16 [facility] Comment on above: Performed By: #### 1 1296119, 5433557, 089693684, 2579371, 2003904 ####[facility] [address] [place] [address] AST [Catalytic activity/Vol] 21 Int._Unit/L Normal 5-43 [facility] Comment on above: Performed By: #### 1 5636046, 4166037, 351368557, 4560976, 4702179 ####[facility] [address] [place] [address] Bilirubin [Mass/Vol] 0.6 mg/dL Normal 0.0-1.1 [facility] Comment on above: Performed By: #### 1 2316760, 0717047, 410689408, 7568998, 1827828 ####[facility] [address] [place] [address] Calcium [Mass/Vol] 9.4 mg/dL Normal 8.9-11.1 [facility] Comment on above: Performed By: #### 1 8187185, 4548254, 693277489, 3297214, 7895997 ####[facility] [address] [place] [address] Chloride [Moles/Vol] 99 mmol/L Low 101-111 [facility] Comment on above: Performed By: #### 1 0371798, 1761284, 767823575, 0774924, 8004141 ####[facility] [address] [place] [address] CO2 [Moles/Vol] 31 mmol/L Normal 21-31 [facility] Comment on above: Performed By: #### 1 0896428, 0921816, 492508447, 9621638, 4496975 ####[facility] [address] [facility] [place] [address] Creatinine [Mass/Vol] 1.5 mg/dL High 0.5-1.3 [facility] Comment on above: Performed By: #### 1 6009018, 2818673, 992099695, 9743380, 1347822 ####[facility] [address] [place] [address] Globulin (S) [Mass/Vol] 3.7 g/dL Normal 1.4-4.0 [facility] Comment on above: Performed By: #### 1 6724826, 6321179, 942238730, 2480058, 1536332 ####[facility] [address] [place] [address] Glucose [Mass/Vol] 128 mg/dL Normal 55-199 [facility] Comment on above: Result Comment: If t his glucose result represents a fasting glucose, interpretation should refer to the following reference range: 55-99 mg/dL Performed By: #### 1 1800237, 0378654, 592770902, 0330763, 8819757 ####[facility] [address] [place] [address] Potassium [Moles/Vol] 4.1 mmol/L Normal 3.5-5.3 [facility] Comment on above: Performed By: #### 1 7956264, 2324949, 107985507, 9091519, 8536191 ####[facility] [address] [place] [address] Protein [Mass/Vol] 7.3 g/dL Normal 6.0-7.8 [facility] Comment on above: Performed By: #### 1 7566650, 0571135, 643129118, 5571734, 7234542 ####[facility] [address] [place] [address] Sodium [Moles/Vol] 142 mmol/L Normal 135-145 [facility] Comment on above: Performed By: #### 1 0186397, 1962587, 235967684, 0059318, 2395187 ####[facility] [address] [place] [address] Urea nitrogen [Mass/Vol] 57 mg/dL High 5-21 [facility] Comment on above: Performed By: #### 1 9044984, 6623640, 641948013, 4370447, 1495094 ####[facility] [address] [place] [address] Urea nitrogen/Creatinine [Mass ratio] 38 No Units High 10-20 [facility] Comment on above: Performed By: #### 1 9797771, 0943084, 431248576, 9457157, 7028489 ####[facility] [address] [place] [address] Capillary Glucose POCon 07 Glucose [Mass/Vol] 256 mg/dL High 55-99 [facility] Comment on above: Result Comment: Yazmin bri Meter Performed By: #### 2 19209630 ####[facility] [address] [place] [address] Glucose [Mass/Vol] 152 mg/dL High 55- [facility] Comment on above: Result Comment: Yazmin bri Meter Performed By: #### 2 70083668 ####[facility] [address] [place] [address] HpoP6kyq 12-13-2022 HbA1c (Bld) [Mass fraction] 6.5 % High <=5.9 [facility] Comment on above: Performed By: #### 1 8325506, 7801157, 348321335, 2361291, 3665858 ####[facility] [address] [place] [address] eGFRon 12-13-2022 GFR/1.73 sq M.predicted among non-blacks MDRD (S/P/Bld) [Vol rate/Area] 47 mL/min/1.73 m2 Low >=59 [facility] Comment on above: Order Comment: Order added by Discern Expert. Result Comment: Shark Biologist earnest kidney disease could be indicated at eGFR's of less than 60 mL/min/1.73m2. Kidney failure is indicated at less than 15 mL/min/1.73m2. Performed By: #### 1 2356889, 8308370, 542473493, 9333565, 9585723 ####[facility] [address] [place] [address] Capillary Glucose POCon 11-22 Glucose [Mass/Vol] 212 mg/dL High 55- [facility] Comment on above: Result Comment: Yazmin bri Meter Performed By: #### 2 88709047 ####[facility] [address] [place] [address] Glucose [Mass/Vol] 161 mg/dL High - [facility] Comment on above: Result Comment: Yazmin bri Meter Performed By: #### 2 98963297 ####[facility] [address] [place] [address] Capillary Glucose POCon 11-22 Glucose [Mass/Vol] 206 mg/dL High 55-99 [facility] Comment on above: Result Comment: Yazmin bri Meter Performed By: #### 2 39319499 ####[facility] [address] [place] [address] Glucose [Mass/Vol] 152 mg/dL [address] Comment on above: Result Comment: Yazmin bri Meter Performed By: #### 2 16700315 ####[facility] [address] [place] [address] Capillary Glucose POCon 11-22 Glucose [Mass/Vol] 140 mg/dL [address] Comment on above: Result Comment: Yazmin bri Meter Performed By: #### 2 42791487 ####[facility] [address] [place] [address] Capillary Glucose POCon 11-21 Glucose [Mass/Vol] 243 mg/dL [address] Comment on above: Result Comment: Yazmin bri Meter Performed By: #### 2 03646300 ####[facility] [address] [place] [address] Glucose [Mass/Vol] 157 mg/dL [address] Comment on above: Result Comment: Yazmin bri Meter Performed By: #### 2 18318808 ####[facility] [address] [place] [address] Capillary Glucose POCon 11-21 Glucose [Mass/Vol] 181 mg/dL [address] Comment on above: Result Comment: Yazmin bri Meter Performed By: #### 2 50489206 ####[facility] [address] [place] [address] Capillary Glucose POCon 11-21 Glucose [Mass/Vol] 149 mg/dL [address] Comment on above: Result Comment: Yazmin bri Meter Performed By: #### 2 80755411 ####[facility] [address] [place] [address] Glucose [Mass/Vol] 164 mg/dL High 55-99 [facility] Comment on above: Result Comment: Yazmin bri Meter Performed By: #### 2 38877942 ####[facility] [address] [place] [address] Capillary Glucose POCon 11-21 Glucose [Mass/Vol] 265 mg/dL High 55-99 [facility] Comment on above: Result Comment: Yazmin bri Meter Performed By: #### 2 47752920 ####[facility] [address] [place] [address] Glucose [Mass/Vol] 129 mg/dL High 55-99 [facility] Comment on above: Result Comment: Yazmin bri Meter Performed By: #### 2 22668164 ####[facility] [address] [place] [address] Family Medicine Office/Clini c Noteon 12-06-2022 Family Medicine Office/Clinic Note Normal [facility] Comment on above: Result Comment: Elec tronically Signed By: SHAISTA POTTS, Donta\.br\Date and Time Signed: 12/06/22 21:11 EDT Capillary Glucose POCon 11-21 Glucose [Mass/Vol] 196 mg/dL High 55-99 [facility] Comment on above: Result Comment: Yazmin bri Meter Performed By: #### 2 30170956 ####[facility] [address] [place] [address] Glucose [Mass/Vol] 159 mg/dL High 55-99 [facility] Comment on above: Result Comment: Yazmin bri Meter Performed By: #### 2 04897977 ####[facility] [address] [place] [address] Capillary Glucose POCon 11-21 Glucose [Mass/Vol] 195 mg/dL High 55-99 [facility] Comment on above: Result Comment: Gareth guerrero RN/ Performed By: #### 2 85042332 ####[facility] [address] [place] [address] Insurance Correspondence Off ice12-04-2022 Insurance Correspondence Office [id number]# 1.00CD:127 Normal [facility] Physician Orderon 12-03-2022 Physician Order [id number]# 1.00CD:127 Normal [facility] CHEMISTRYOrdered By: Lab ROP User on 12-02-2022 Glucose [Mass/Vol] 227 mg/dL High 55 - 99 mg/dL [facility] [place] Subsection Comment on above: Result Comment: Gareth GARDINER POC Device SN [id number] Invalid Interpretation Code [facility] P[place] Subsection POC User ID [id number] Invalid Interpretation Code [facility] Subsection POC Username KINGSTON JAMISON Invalid Interpretation Code [facility] Subsection Glucose [Mass/Vol] 127 mg/dL High 55 - 99 mg/dL [facility] Subsection Comment on above: Result Comment: Gareth GARDINER POC Device SN [id number] Invalid Interpretation Code [facility] P[facility] Subsection POC User ID [id number] Invalid Interpretation Code [facility] P[facility] Subsection POC Username TOYIN REYNOLDS Invalid Interpretation Code [facility] POC Subsection Capillary Glucose POCon 11-21 Glucose [Mass/Vol] 227 mg/dL High 55-99 [facility] Comment on above: Result Comment: Gareth GARDINER Performed By: #### 2 [id number] ####[facility] [address] [place] [address] Glucose [Mass/Vol] 127 mg/dL High 55-99 [facility] Comment on above: Result Comment: Gareth GARDINER Performed By: #### 2 58716715 ####[facility] [address] [place] [address] Coding Queryon 12-02-2022 Coding Query Normal [facility] Discharge Note-Nursingon Discharge Note-Nursing Normal [facility] Inpatient Clinical Summaryon 12-02-2022 Inpatient Clinical Summary Normal [facility] Inpatient Patient Summaryon 12-02-2022 Inpatient Patient Summary Normal [facility] Insurance Correspondence Off iceon 12-02-2022 Insurance Correspondence Office [id number]#1. 00CD:127 Normal [facility] Interdisciplinary Note - Santosh e Manageron 12-02-2022 Interdisciplinary Note - Exercise Science Instructor [facility] Comment on above: Result Comment: Elec tronically Signed By: Lisa Weems RN\.br\Date and Time Signed: 12/02/22 09:31 EDT Monitor Recordon 12-02-2022 Monitor Record [id number]# 1.00CD:127 Normal [facility] Physician Orderon 12-02-2022 Physician Order [id number]# 1.00CD:127 Normal [facility] Progress Note-Physicianon Progress Note-Physician Normal [facility] Comment on above: Result Comment: Elec tronically Signed By: Adeline COLEMAN\.br\Date and Time Signed: 12/01/22 18:43 EDT\.br\Electronically Co-Signed By: Juan Hdz DO\.br\Date and Time Co-Signed: 12/02/22 07:20 EDT Transfer Documentson 023 Transfer Documents [id number]# 1.00CD:127 Normal [facility] BMPon 12-01-2022 Anion gap [Moles/Vol] 13 mmol/L Normal 6-16 [facility] Comment on above: Performed By: #### 1 0897575, 1428900, 4054823, 2534707 ####[facility] [address] [place] [address] Calcium [Mass/Vol] 9.1 mg/dL Normal 8.9-11.1 [facility] Comment on above: Performed By: #### 1 6471988, 9044748, 8109365, 8531968 ####[facility] [address] [place] [address] Chloride [Moles/Vol] 102 mmol/L Normal 101-111 [facility] Comment on above: Performed By: #### 1 0690104, 7133417, 0003415, 9252131 ####[facility] [address] [place] [address] CO2 [Moles/Vol] 28 mmol/L Normal 21-31 [facility] Comment on above: Performed By: #### 1 2884708, 6230745, 2296126, 7395076 ####[facility] [address] [place] [address] Creatinine [Mass/Vol] 1.3 mg/dL Normal 0.5-1.3 [facility] Comment on above: Performed By: #### 1 5104327, 2065661, 1241985, 8413795 ####[facility] [address] [place] [address] Glucose [Mass/Vol] 97 mg/dL Normal 55-199 [facility] Comment on above: Result Comment: If t his glucose result represents a fasting glucose, interpretation should refer to the following reference range: 55-99 mg/dL Performed By: #### 1 4590129, 5585328, 4863925, 6864564 ####[facility] [address] [place] [address] Potassium [Moles/Vol] 4.6 mmol/L Normal 3.5-5.3 [facility] Comment on above: Performed By: #### 1 8506361, 8684828, 2501131, 3600160 ####[facility] [address] [place] [address] Sodium [Moles/Vol] 138 mmol/L Normal 135-145 [facility] Comment on above: Performed By: #### 1 2962241, 3285730, 5071903, 6721108 ####[facility] [address] [place] [address] Urea nitrogen [Mass/Vol] 24 mg/dL High 5-21 [facility] Comment on above: Performed By: #### 1 3381605, 9333249, 2762171, 3720645 ####[facility] [address] [place] [address] Urea nitrogen/Creatinine [Mass ratio] 18 No Units Normal 10-20 [facility] Comment on above: Performed By: #### 1 9680794, 8059141, 5154998, 9154187 ####[facility] [address] [place] [address] CHEMISTRYOrdered By: Lab ROP User on 12-01-2022 Glucose [Mass/Vol] 114 mg/dL High 55 - 99 mg/dL [facility] POC Subsection Comment on above: Result Comment: Gareth guerrero RN/ POC Device SN [id number] Invalid Interpretation Code [facility] POC Subsection POC User ID [id number] Invalid Interpretation Code [facility] POC Subsection POC Username NETO CHEEK Invalid Interpretation Code [facility] POC Subsection CHEMISTRYOrdered By: SYSTEM SYSTEM on 12-01-2022 Anion gap [Moles/Vol] 13 mmol/L Normal 6 - 16 mEq/L [facility] Remisol Calcium [Mass/Vol] 9.1 mg/dL Normal 8.9 - 11. 1 mg/dL [facility] Chloride [Moles/Vol] 102 mmol/L Normal 101 - 1 11 mmol/L [facility] CK [Catalytic activity/Vol] 211 [iU]/d Normal 14 - 261 Int._Unit/L [facility] Remisol CO2 [Moles/Vol] 28 mmol/L Normal 21 - 31 mmol/L [facility] Remisol Creatinine [Mass/Vol] 1.3 mg/dL Normal 0.5 - 1.3 mg/dL [facility] Remisol GFR/1.73 sq M.predicted among non-blacks MDRD (S/P/Bld) [Vol rate/Area] 56 mL/min/1.73 m2 Low >=59mL/min/ 1.73 m2 [facility] Chem S Glucose [Mass/Vol] 97 mg/dL Normal 55 - 199 mg/dL [facility] Magnesium [Mass/Vol] 2.1 mg/dL Normal 1.3 - 2 .4 mg/dL [facility] Potassium [Moles/Vol] 4.6 mmol/L Normal 3.5 - 5.3 mmol/L [facility] Sodium [Moles/Vol] 138 mmol/L Normal 135 - 145 mmol/L [facility] Urea nitrogen [Mass/Vol] 24 mg/dL High 5 - 21 mg/dL [facility] Remisol Urea nitrogen/Creatinine [Mass ratio] 18 mg/mg Normal 10 - 20 [facility] Remisol CKon 12-01-2022 CK [Catalytic activity/Vol] 211 Int._Unit/L Normal 14-261 [facility] Comment on above: Performed By: #### 1 6087493, 5074148, 8225005, 4566911 ####[facility] [address] [place] [address] Capillary Glucose POCon 11-21 Glucose [Mass/Vol] 114 mg/dL High 55-99 [facility] Comment on above: Result Comment: Gareth GARDINER Performed By: #### 2 98618764 ####[facility] [address] [place] [address] Glucose [Mass/Vol] 193 mg/dL High 55-99 [facility] Comment on above: Result Comment: Gareth GARDINER Performed By: #### 2 79779487 ####[facility] [address] [facility] [place] [address] Glucose [Mass/Vol] 203 mg/dL High 55-99 [facility] Comment on above: Result Comment: Gareth GARDINER Performed By: #### 2 78924718 ####[facility] [address] [place] [address] Glucose [Mass/Vol] 110 mg/dL High 55-99 [facility] Comment on above: Result Comment: Gareth GARDINER Performed By: #### 2 75145368 ####[facility] [address] [place] [address] Interdisciplinary Note - Santosh e Manageron 12-01-2022 Interdisciplinary Note - Exercise Science Instructor Pt is asleep in bed, no family present. Pt is [facility] side, pending precert at this time. Contact information provided and white board updated, CRM following Normal [facility] Comment on above: Result Comment: Elec tronically Signed By: Dank HAYDEN, Lisa\.candice\Date and Time Signed: 12/01/22 08:20 EDT Ionized Calciumon 12-01-2022 Calcium.ionized ISE [Mass/Vol] 4.8 mg/dL Invalid Interpretation Code 4.5-5.6 [facility] Comment on above: Result Comment: Perf ormed at: [facility] [id number] [place], [place] [id number] PhD Michael Cortes Performed By: #### 2 561913, 9465109, 7891903, 47598638, 85327239, 7218374, 09884411, 8459421, 30230241, 591344132, 4430741, 8197503 ####[facility] [address] [place] [address] Magnesiumon 12-01-2022 Magnesium [Mass/Vol] 2.1 mg/dL Normal 1.3-2.4 [facility] Comment on above: Performed By: #### 1 3119975, 4523030, 5132720, 4657557 ####[facility] [address] [place] [address] Progress Note-Physicianon Progress Note-Physician Normal [facility] Comment on above: Result Comment: [...] Order added by Discern Expert. Result Comment: Shark Biologist earnest kidney disease could be indicated at eGFR's of less than 60 mL/min/1.73m2. Kidney failure is indicated at less than 15 mL/min/1.73m2. Performed By: #### 1 5773358, 9960268, 9414850, 0863752 ####[facility] [address] [place] [address] BMPon 11-30-2022 Anion gap [Moles/Vol] 11 mmol/L Normal 6-16 [facility] Comment on above: Performed By: #### 2 590786, 2928651, 85196141 ####[facility] [address] [place] [address] Calcium [Mass/Vol] 9.0 mg/dL Normal 8.9-11.1 [facility] Comment on above: Performed By: #### 2 237731, 3488884, 12315962 ####[facility] [address] [place] [address] Chloride [Moles/Vol] 102 mmol/L Normal 101-111 [facility] Comment on above: Performed By: #### 2 584867, 4306524, 25913701 ####[facility] [address] [place] [address] CO2 [Moles/Vol] 31 mmol/L Normal 21-31 [facility] Comment on above: Performed By: #### 2 174652, 3033961, 13280000 ####[facility] [address] [place] [address] Creatinine [Mass/Vol] 1.1 mg/dL Normal 0.5-1.3 [facility] Comment on above: Performed By: #### 2 929016, 7448679, 31326991 ####[facility] [address] [facility] [place] [address] Glucose [Mass/Vol] 114 mg/dL Normal 55-199 [facility] Comment on above: Result Comment: If t his glucose result represents a fasting glucose, interpretation should refer to the following reference range: 55-99 mg/dL Performed By: #### 2 940545, 8941314, 79044243 ####[facility] [address] [place] [address] Potassium [Moles/Vol] 3.4 mmol/L Low 3.5-5.3 [facility] Comment on above: Performed By: #### 2 352965, 4588258, 45582137 ####[facility] [address] [place] [address] Sodium [Moles/Vol] 141 mmol/L Normal 135-145 [facility] Comment on above: Performed By: #### 2 581775, 2207269, 48570610 ####[facility] [address] [place] [address] Urea nitrogen [Mass/Vol] 23 mg/dL High 5-21 [facility] Comment on above: Performed By: #### 2 550773, 8042856, 96802036 ####[facility] [address] [place] [address] Urea nitrogen/Creatinine [Mass ratio] 21 No Units High 10-20 [facility] Comment on above: Performed By: #### 2 938460, 1712996, 23357262 ####[facility] [address] [place] [address] CHEMISTRYOrdered By: SYSTEM SYSTEM on 11-30-2022 Anion gap [Moles/Vol] 11 mmol/L Normal 6 - 16 mEq/L [facility] Remisol Calcium [Mass/Vol] 9.0 mg/dL Normal 8.9 - 11. 1 mg/dL [facility] Remisol Chloride [Moles/Vol] 102 mmol/L Normal 101 - 1 11 mmol/L [facility] Remisol CO2 [Moles/Vol] 31 mmol/L Normal 21 - 31 mmol/L [facility] Remisol Creatinine [Mass/Vol] 1.1 mg/dL Normal 0.5 - 1.3 mg/dL [facility] Remisol GFR/1.73 sq M.predicted among non-blacks MDRD (S/P/Bld) [Vol rate/Area] 69 mL/min/1.73 m2 Normal >=59mL/min/ 1.73 m2 [facility] Chem S Glucose [Mass/Vol] 114 mg/dL Normal 55 - 199 mg/dL [facility] Magnesium [Mass/Vol] 1.8 mg/dL Normal 1.3 - 2 .4 mg/dL [facility] Remisol Potassium [Moles/Vol] 3.4 mmol/L Low 3.5 - 5.3 mmol/L [facility] Remisol Sodium [Moles/Vol] 141 mmol/L Normal 135 - 145 mmol/L [facility] Remisol Urea nitrogen [Mass/Vol] 23 mg/dL High 5 - 21 mg/dL [facility] Remisol Urea nitrogen/Creatinine [Mass ratio] 21 mg/mg High 10 - 20 [facility] Remisol Capillary Glucose POCon 11-21 Glucose [Mass/Vol] 194 mg/dL High 55-99 [facility] Comment on above: Result Comment: Gareth GARDINER Performed By: #### 2 [id number] ####[facility] [address] [place] [address] Glucose [Mass/Vol] 96 mg/dL Normal 55-99 [facility] Comment on above: Performed By: #### 2 [id number] ####[facility] [address] [place] [address] Glucose [Mass/Vol] 130 mg/dL High 55-99 [facility] Comment on above: Result Comment: Gareth GARDINER Performed By: #### 2 [id number] ####[facility] [address] [place] [address] Glucose [Mass/Vol] 113 mg/dL High 55-99 [facility] Comment on above: Result Comment: Gareth GARDINER Performed By: #### 2 [id number] ####[facility] [address] [place] [address] Echo Transthoracic Completeo n 11-30-2022 Echo Transthoracic Complete Normal [facility] Insurance Correspondence Off iceon 11-30-2022 Insurance Correspondence Office [id number] .[id number]:127 Normal [facility] Interdisciplinary Note - Santosh e Manageron 11-30-2022 Interdisciplinary Note - Exercise Science Instructor Normal [facility] Comment on above: Result Comment: Elec tronically Signed By: Dank HAYDEN, Lisa\.candice\Date and Time Signed: 11/30/22 10:48 EDT Magnesiumon 11-30-2022 Magnesium [Mass/Vol] 1.8 mg/dL Normal 1.3-2.4 [facility] Comment on above: Performed By: #### 2 262115, 2001432, [id number] ####[facility] [address] [place] [address] Message from Medicareon 11-21 Message from Medicare [id number] .00CD:127 Normal [facility] Progress Note-Physicianon Progress Note-Physician Normal [facility] Comment on above: Result Comment: Elec tronically Signed By: Tino POTTS, Joanie\.br\Date and Time Signed: 11/30/22 15:13 EDT Progress Note-Physician Normal [facility] Comment on above: Result Comment: Elec tronically Signed By: Pao POTTS, Lizeth\.br\Date and Time Signed: 11/30/22 14:52 EDT UA With Cult Reflexon 2022 Bacteria LM Ql (Urine sed) TRACE Normal Trace [facility] Comment on above: Order Comment: Urina ry Catheter Insertion triggered Urinalysis With Culture Reflex order by discern. Performed By: #### 1 [id number] ####[facility] [address] [place] [address] Bilirubin Ql (U) Negative Normal Negative [facility] Comment on above: Order Comment: Urina ry Catheter Insertion triggered Urinalysis With Culture Reflex order by discern. Performed By: #### 1 [id number] ####[facility] [address] [place] [address] Clarity (U) CLEAR Normal Clear [facility] Comment on above: Order Comment: Urina ry Catheter Insertion triggered Urinalysis With Culture Reflex order by discern. Performed By: #### 1 [id number] ####[facility] [address] [place] [address] Color (U) YELLOW Normal Yellow [facility] Comment on above: Order Comment: Urina ry Catheter Insertion triggered Urinalysis With Culture Reflex order by discern. Performed By: #### 1 [id number] ####[facility] [address] [place] [address] Epithelial cells.squamous LM.HPF (Urine sed) [#/Area] 0-2 Normal 0-2 [facility] Comment on above: Order Comment: Urina ry Catheter Insertion triggered Urinalysis With Culture Reflex order by discern. Performed By: #### 1 [id number] ####[facility] [address] [place] [address] Glucose Test strip (U) [Mass/Vol] Negative Normal Negative [facility] Comment on above: Order Comment: Urina ry Catheter Insertion triggered Urinalysis With Culture Reflex order by discern. Performed By: #### 1 [id number] ####[facility] [address] [place] [address] Hemoglobin Ql (U) Negative Normal Negative [facility] Comment on above: Order Comment: Urina ry Catheter Insertion triggered Urinalysis With Culture Reflex order by discern. Performed By: #### 1 [id number] ####[facility] [address] [place] [address] Ketones (U) [Mass/Vol] Negative Normal Negative [facility] Comment on above: Order Comment: Urina ry Catheter Insertion triggered Urinalysis With Culture Reflex order by discern. Performed By: #### 1 [id number] ####[facility] [address] [place] [address] Vale.plasma/Vale.R BC (Bld) [Mass ratio] 0-3 Normal 0-3 [facility] Comment on above: Order Comment: Urina ry Catheter Insertion triggered Urinalysis With Culture Reflex order by discern. Performed By: #### 1 [id number] ####[facility] [address] [place] [address] Nitrite Ql (U) Negative Normal Negative [facility] Comment on above: Order Comment: Urina ry Catheter Insertion triggered Urinalysis With Culture Reflex order by discern. Performed By: #### 1 [id number] ####[facility] [address] [place] [address] pH (U) 6.0 [pH] Invalid Interpretation Code 5.0-9.0 [facility] Comment on above: Order Comment: Urina ry Catheter Insertion triggered Urinalysis With Culture Reflex order by discern. Performed By: #### 1 [id number] ####[address] [address] Protein (U) [Mass/Vol] Negative Normal Negative [facility] Comment on above: Order Comment: Urina ry Catheter Insertion triggered Urinalysis With Culture Reflex order by discern. Performed By: #### 1 7133381 ####[place] [address] Specific gravity (U) [Rel density] 1.010 Invalid Interpretation Code 1.005-1.030 [facility] Comment on above: Order Comment: Urina ry Catheter Insertion triggered Urinalysis With Culture Reflex order by discern. Performed By: #### 1 9198089 ####[place] [address] Type of Urine collection method Red Normal [facility] Comment on above: Order Comment: Urina ry Catheter Insertion triggered Urinalysis With Culture Reflex order by discern. Performed By: #### 1 3834399 ####[place] [address] Urobilinogen Qn (U) 0.2 {Lei'U}/dL Normal 0.0-1.0 [facility] Comment on above: Order Comment: Urina ry Catheter Insertion triggered Urinalysis With Culture Reflex order by discern. Performed By: #### 1 [id number] ####[place] [address]1857 WBC Auto Ql (U) Negative Normal Negative [facility] Comment on above: Order Comment: Urina ry Catheter Insertion triggered Urinalysis With Culture Reflex order by discern. Performed By: #### 1 [id number] ####[place] [address]1857 WBC casts LM.LPF (Urine sed) [#/Area] 0-3 Normal [facility] Comment on above: Order Comment: Urina ry Catheter Insertion triggered Urinalysis With Culture Reflex order by discern. Performed By: #### 1 3597913 ####[facility] [place] [address] WBC LM.HPF (Urine sed) [#/Area] 0-5 Normal 0-5 [facility] Comment on above: Order Comment: Urina ry Catheter Insertion triggered Urinalysis With Culture Reflex order by discern. Performed By: #### 1 9573038 ####[facility] [address] [place] [address] URINALYSISOrdered By: Houston Castillo on 11-30-2022 Bacteria [...] AM) Normal Negative [facility] UA Auto SS Vale.plasma/Vale.R BC (Bld) [Mass ratio] 0-3 /HPF Normal [...] [facility] UA Auto SS Urobilinogen Qn (U) 0.0176596 {Lei'U}/dL Normal 0.0 - 1.0 EU/dL [facility] UA Auto SS WBC Auto Ql (U) Negative (11/30/22 11:00 AM) Normal Negative [facility] UA Auto SS WBC casts LM.LPF (Urine sed) [#/Area] 0-3 (11/30/22 11:00 AM) Normal [facility] UA Auto SS WBC LM.HPF (Urine sed) [#/Area] 0-5 /HPF Normal 0-5/HPF [facility] UA Auto SS eGFRon 11-30-2022 GFR/1.73 sq M.predicted among non-blacks MDRD (S/P/Bld) [Vol rate/Area] 69 mL/min/1.73 m2 Normal >=59 [facility] Comment on above: Order Comment: Order added by Discern Expert. Result Comment: Shark Biologist earnest kidney disease could be indicated at eGFR's of less than 60 mL/min/1.73m2. Kidney failure is indicated at less than 15 mL/min/1.73m2. Performed By: #### 2 997394, 5260354, 57521487 ####[facility] [address] [place] [address] Auto Diffon 11-29-2022 Basophils/100 WBC (Bld) 0.5 % Normal 0.0-2.0 [facility] Comment on above: Order Comment: Order Added by Discern Expert. Performed By: #### 2 063323, 3396087, 1869137, 99408507, 04952035, 1484255, 76649095, 8740784, 93591699, 284910071, 7390285, 1815369 ####[facility] [address] [place] [address] Basophils/Leukocytes Auto (Bld) [Pure # fraction] 0.0 E9/L Normal 0.0-0.2 [facility] Comment on above: Order Comment: Order Added by Discern Expert. Performed By: #### 2 832988, 2413771, 5682742, 68545092, 83409776, 2003308, 69649072, 1299913, 46001709, 639375028, 7459264, 0257855 ####[facility] [address] [place] [address] Eosinophils/100 WBC (Bld) 8.4 % High 0.0-8.0 [facility] Comment on above: Order Comment: Order Added by Discern Expert. Performed By: #### 2 976998, 3210795, 0990881, 14294219, 37343198, 6859887, 24973636, 5852755, 20553673, 911741114, 2403729, 6241110 ####[place] [address] [place] [address] Eosinophils/Leukocytes Auto (Bld) [Pure # fraction] 0.6 E9/L High 0.0-0.5 [facility] Comment on above: Order Comment: Order Added by Discern Expert. Performed By: #### 2 844624, 2096151, 4607485, 04252373, 81267036, 3998770, 89708286, 2719188, 78913721, 023150335, 4823519, 7214813 ####[facility] [address] [place] [address] Lymphocytes/100 WBC (Bld) 15.8 % Normal 14.0-50.0 [facility] Comment on above: Order Comment: Order Added by Discern Expert. Performed By: #### 2 752097, 9082980, 4618159, 70014893, 77182079, 3383048, 67510300, 1727244, 59674848, 365346923, 0131751, 0918065 ####[place] [address] [place] [address] Lymphocytes/Leukocytes Auto (Bld) [Pure # fraction] 1.2 E9/L Normal 1.0-4.0 [facility] Comment on above: Order Comment: Order Added by Discern Expert. Performed By: #### 2 147147, 1327577, 9903014, 66908390, 52386438, 3835095, 72212566, 3280863, 05241726, 962394827, 6986406, 0663654 ####[facility] [address] [place] [address] Monocytes/100 WBC (Bld) 8.4 % Normal 4.0-14.0 [facility] Comment on above: Order Comment: Order Added by Discern Expert. Performed By: #### 2 880349, 7766892, 5437153, 81504727, 34153537, 1032756, 94776001, 1674381, 45885589, 031615865, 8731938, 9475824 ####[facility] [address] [place] [address] Monocytes/Leukocytes Auto (Bld) [Pure # fraction] 0.6 E9/L Normal 0.2-1.0 [facility] Comment on above: Order Comment: Order Added by Discern Expert. Performed By: #### 2 832265, 1401116, 2227821, 84708028, 44122293, 2699543, 55833878, 7458267, 15333102, 540134959, 4029355, 9670334 ####[facility] [address] [place] [address] Neutrophils/100 WBC (Bld) 66.9 % Normal 36.0-75.0 [facility] Comment on above: Order Comment: Order Added by Discern Expert. Performed By: #### 2 649434, 4595853, 3121317, 25685345, 09577502, 1174851, 47045641, 5347508, 55739173, 664702873, 9035561, 5228418 ####[facility] [address] [place] [address] Neutrophils/Leukocytes Auto (Bld) [Pure # fraction] 5.0 E9/L Normal 2.0-7.5 [facility] Comment on above: Order Comment: Order Added by Discern Expert. Performed By: #### 2 063868, 7939468, 0082226, 95559838, 61587760, 3236239, 09905336, 8534650, 05666406, 871751638, 9957895, 5221936 ####[facility] [address] [place] [address] BMPon 11-29-2022 Anion gap [Moles/Vol] 13 mmol/L Normal 6-16 [facility] Comment on above: Performed By: #### 2 156318, 9229297, 6469428, 69076697, 47390513, 8978756, 84422689, 4663963, 10185196, 739345856, 4435612, 2550554 ####[facility] [address] [place] [address] Calcium [Mass/Vol] 9.1 mg/dL Normal 8.9-11.1 [facility] Comment on above: Performed By: #### 2 438360, 7085437, 6650731, 60579377, 08155104, 1464840, 53731898, 1377185, 37444410, 876224114, 1823168, 0254428 ####[facility] [address] [place] [address] Chloride [Moles/Vol] 102 mmol/L Normal 101-111 [facility] Comment on above: Performed By: #### 2 533509, 9202291, 8409467, 15707246, 64257090, 6001259, 11909755, 7129233, 69836235, 089394893, 1224108, 2257457 ####[facility] [address] [place] [address] CO2 [Moles/Vol] 29 mmol/L Normal 21-31 [facility] Comment on above: Performed By: #### 2 395674, 5690723, 7053240, 19056006, 90464141, 8321024, 73609209, 7775587, 90647176, 633090572, 5715299, 7738193 ####[facility] [address] [place] [address] Creatinine [Mass/Vol] 1.1 mg/dL Normal 0.5-1.3 [facility] Comment on above: Performed By: #### 2 003718, 5776759, 3903647, 83077492, 68900640, 8347704, 40791888, 5513081, 34765559, 083675034, 0214963, 5683268 ####[facility] [address] [place] [address] Glucose [Mass/Vol] 95 mg/dL Normal 55-199 [facility] Comment on above: Result Comment: If t his glucose result represents a fasting glucose, interpretation should refer to the following reference range: 55-99 mg/dL Performed By: #### 2 551678, 7800115, 7862613, 85674171, 79790114, 7165686, 74186332, 7528800, 88747949, 601666578, 5808074, 5483553 ####[facility] [address] [place] [address] Potassium [Moles/Vol] 3.9 mmol/L Normal 3.5-5.3 [facility] Comment on above: Performed By: #### 2 823768, 1327908, 2326309, 29172491, 93396860, 3051989, 81137435, 4931077, 43920897, 172647431, 6263783, 2587273 ####[facility] [address] [place] [address] Sodium [Moles/Vol] 140 mmol/L Normal 135-145 [facility] Comment on above: Performed By: #### 2 025125, 4254161, 2522156, 61467932, 95976338, 9589618, 85818947, 9077787, 40889701, 347027596, 7736526, 5914212 ####[facility] [address] [place] [address] Urea nitrogen [Mass/Vol] 16 mg/dL Normal 5-21 [facility] Comment on above: Performed By: #### 2 136922, 6575688, 1170624, 96220631, 14632234, 8329614, 79815290, 7788661, 14385322, 912357585, 2321004, 5237382 ####[facility] [address] [place] [address] Urea nitrogen/Creatinine [Mass ratio] 14 No Units Normal 10-20 [facility] Comment on above: Performed By: #### 2 508122, 6593987, 2463036, 70048220, 70611096, 2297395, 24671033, 6166977, 44053973, 198399865, 4797330, 7619980 ####[facility] [address] [place] [address] BNPon 11-29-2022 Natriuretic peptide B (Bld) [Mass/Vol] 855 pg/mL High 5-80 [facility] Comment on above: Performed By: #### 2 191767, 1421925, 0879687, 10943815, 53782509, 5354470, 94482265, 8872019, 88972939, 153924819, 6008280, 4340427 ####[facility] [address] [place] [address] CBC w/ Auto Diffon 3 Erythrocyte distribution width (RBC) [Ratio] 14.9 % High 10.9-14.2 [facility] Comment on above: Performed By: #### 2 369359, 5299356, 5027517, 09623000, 78168480, 3584135, 59529186, 4270990, 18643614, 142602834, 0085943, 4143132 ####[facility] [address] [place] [address] Hematocrit (Bld) [Volume fraction] 38.1 % Normal 37.7-49.0 [facility] Comment on above: Performed By: #### 2 782649, 9772954, 5105907, 22413908, 48164784, 8779159, 07361726, 5096623, 54693175, 379000989, 7271515, 6505467 ####[place] [address] [place] [address] Hemoglobin (Bld) [Mass/Vol] 12.8 g/dL Low 13.5-17.5 [facility] Comment on above: Performed By: #### 2 403384, 3008447, 3446198, 92369914, 14312196, 8145187, 40933712, 7797476, 43153225, 826768681, 9566526, 3895450 ####[address] [address] MCH (RBC) [Entitic mass] 29.0 pg Normal 27.0-34.0 [facility] Comment on above: Performed By: #### 2 934901, 4724994, 7313934, 77713818, 63584728, 4753189, 86586226, 0116289, 43634964, 844360347, 6295231, 5805958 ####[address] [address] MCHC (RBC) [Mass/Vol] 33.7 g/dL Normal 31.4-36.0 [facility] Comment on above: Performed By: #### 2 714230, 2382647, 0961009, 93250756, 59316848, 3444364, 10460426, 7107985, 45011095, 367523996, 9142750, 3299874 ####[address] [address] MCV (RBC) [Entitic vol] 86.1 fL Normal 80.0-100.0 [facility] Comment on above: Performed By: #### 2 280908, 3993288, 3162613, 27396056, 90383259, 1284694, 27522323, 9773663, 92235295, 612007420, 7242912, 0270999 ####[address] [address] Platelet mean volume (Bld) [Entitic vol] 10.9 fL High 6.4-10.8 [facility] Comment on above: Performed By: #### 2 750370, 9640330, 6391865, 67270980, 09587813, 8712915, 11713529, 4993483, 23886283, 526115431, 1423481, 2967018 ####[facility] [address] [place] [address] Platelets (Bld) [#/Vol] 189.0 E9/L Normal 150.0-500.0 [facility] Comment on above: Performed By: #### 2 268740, 8856910, 6434560, 36539110, 51075498, 9244039, 41108136, 6427085, 73550726, 705888626, 2390032, 3837902 ####[facility] [address] [place] [address] RBC (Bld) [#/Vol] 4.4 E12/L Normal 4.3-5.9 [facility] Comment on above: Performed By: #### 2 448422, 5841608, 6242602, 11481767, 79683468, 4538585, 78099675, 3366199, 78849564, 074559609, 6735076, 5859487 ####[facility] [address] [place] [address] WBC corrected for nucl RBC Auto (Bld) [#/Vol] 7.4 E9/L Normal 4.0-11.0 [facility] Comment on above: Performed By: #### 2 724270, 7410799, 3273827, 05175921, 67233432, 5063890, 67985993, 5526925, 60833229, 936043652, 2431431, 1527075 ####[facility] [address] [place] [address] CHEMISTRYOrdered By: SYSTEM SYSTEM on 11-29-2022 Albumin [...] 69 mL/min/1.73 m2 Normal >=59mL/min/ 1.73 m2 [facility] Chem S Globulin (S) [Mass/Vol] 3.1 g/dL [...] 37.00 pg/mL Normal 15.90 - 38.40 pg/mL [facility] Remisol CHEMISTRYOrdered By: Natalie Soto on 11-29-2022 Natriuretic peptide B (Bld) [Mass/Vol] 855 pg/mL High 5 - 80 pg/mL [facility] HemeManSS CHEMISTRYOrdered By: Marian peterson DomainUser on 11-29-2022 Calcium.ionized ISE [Mass/Vol] 4.8 mg/dL Invalid Interpretation Code 4.5-5.6mg/d L [facility] SendOutsSS Comment on above: Result Comment: Perf ormed at: [facility] [address] [id number] PhD Michael Cortes CKon 11-29-2022 CK [Catalytic activity/Vol] 1096 Int._Unit/L Abnormal 14-261 [facility] Comment on above: Result Comment: Crit ical Result verified by repeat analysis\Critical Result [id number] Called to MANAS BARBA AT by AMY JOHNSON and read back for confirmation at 11/29/2022 06:40:15 Performed By: #### 2 552657, 2810566, 0800180, 98673226, 11580955, 8758650, 70872683, 3752037, 76587590, 977557581, 4537321, 8253819 ####[facility] [address] [place] [address] CT Abdomen/Pelvis w/ Contras ton 11-29-2022 CT [...] Gareth guerrero RN/ Performed By: #### 2 70507914 ####[facility] [address] [place] [address] Glucose [Mass/Vol] 174 mg/dL High 55-99 [facility] Comment on above: Performed By: #### 2 41341107 ####[facility] [address] [place] [address] Glucose [Mass/Vol] 107 mg/dL High 55-99 [facility] Comment on above: Result Comment: Gareth GARDINER Performed By: #### 2 90436412 ####[facility] [address] [place] [address] Consultation Noteon 11-30-19 Consultation Note Normal [facility] Comment on above: Result Comment: Elec tronically Signed By: Marcus POTTS, [place]\Date and Time Signed: 11/29/22 14:44 EDT ED Clinical Summaryon 2022 ED Clinical Summary Normal [facility] ED Note-Physicianon 11-30-19 ED Note-Physician Normal [facility] Comment on above: Result Comment: Elec tronically Signed By: Coretta STEIN, Elkin Prajapati\.br\Date and Time Signed: 11/28/22 22:32 EDT ED [...] 33.7 g/dL Normal 31.4 - 36.0 gm/dL [facility] HemeAutoSS MCV (RBC) [Entitic vol] 86.1 fL Normal 80.0 - 100.0 fL [facility] HemeAutoSS Platelet mean volume (Bld) [Entitic vol] 10.9 fL High 6.4 - 10.8 fL [facility] HemeAutoSS Platelets (Bld) [#/Vol] 189.0 E9/L Normal 150. 0 - 500.0 E9/L [facility] HemeAutoSS RBC (Bld) [#/Vol] 4.4 E12/L Normal 4.3 - 5.9 E12/L [facility] HemeAutoSS Sed Rate Automated 17 mm/h Normal 0 - 19 mm/hr [facility] HemeAutoSS WBC corrected for nucl RBC Auto (Bld) [#/Vol] 7.4 E9/L Normal 4.0 - 11.0 E9/L [facility] HemeAutoSS Hep Func Panelon 11-29-2022 Albumin [Mass/Vol] 3.6 g/dL Normal 3.3-5.0 [facility] Comment on above: Performed By: #### 2 514219, 4503176, 2809686, 23725803, 91303130, 3608102, 69323166, 5762320, 28025450, 955519263, 5083573, 2534554 ####[facility] [address] [place] [address] Albumin/Globulin (S) [Mass conc ratio] 1.2 Normal 1.1-2.2 [facility] Comment on above: Performed By: #### 2 666704, 4408770, 7016913, 85320372, 23541969, 6907984, 47276109, 2396638, 45421695, 229260241, 8634927, 0268146 ####[facility] [address] [place] [address] ALP [Catalytic activity/Vol] 40 Int._Unit/L Normal 21-98 [facility] Comment on above: Performed By: #### 2 338995, 5579813, 9903623, 52466986, 15627622, 1617506, 85306194, 2213051, 89692007, 997224476, 1321470, 2257152 ####[facility] [address] [place] [address] ALT No additional P-5'-P [Catalytic activity/Vol] 17 Int._Unit/L Normal 6-46 [facility] Comment on above: Performed By: #### 2 128354, 8997401, 0834273, 34218584, 60023666, 3889466, 59981433, 8707499, 49214631, 805101209, 2737682, 1979610 ####[facility] [address] [place] [address] AST [Catalytic activity/Vol] 33 Int._Unit/L Normal 5-43 [facility] Comment on above: Performed By: #### 2 569340, 3957664, 5360242, 60693351, 21714029, 9793060, 33347740, 7142104, 58487726, 292569241, 7228787, 6279383 ####[facility] [address] [place] [address] Bilirubin [Mass/Vol] 1.1 mg/dL Normal 0.0-1.1 [facility] Comment on above: Performed By: #### 2 428027, 4153883, 6462398, 66013918, 87701741, 9817136, 18614537, 9186188, 89504305, 956571874, 4106863, 1425448 ####[facility] [address] [place] [address] Bilirubin.direct [Mass/Vol] 0.2 mg/dL Normal 0.1-0.4 [facility] Comment on above: Performed By: #### 2 535369, 3618441, 4600662, 42873663, 13047613, 4531251, 42477913, 6257712, 52052539, 935307599, 4190068, 2479202 ####[facility] [address] [place] [address] Bilirubin.indirect [Mass or moles/Vol] 0.9 mg/dL Normal 0.1-0.9 [facility] Comment on above: Performed By: #### 2 448043, 4637010, 0480956, 99958775, 62594639, 1483114, 87558188, 9024896, 46083348, 276993476, 4308358, 3948038 ####[facility] [address] [place] [address] Globulin (S) [Mass/Vol] 3.1 g/dL Normal 1.4-4.0 [facility] Comment on above: Performed By: #### 2 077731, 4150405, 7159607, 92551985, 27844757, 8525008, 14118342, 6415835, 94741968, 691485675, 8913591, 0170599 ####[facility] [address] [place] [address] Protein [Mass/Vol] 6.7 g/dL Normal 6.0-7.8 [facility] Comment on above: Performed By: #### 2 989274, 6587474, 8596028, 20718195, 82743090, 2988476, 53505462, 2350994, 17644763, 214803263, 7237234, 3305724 ####[facility] [address] [place] [address] Interdisciplinary Note - Santosh e Manageron 11-29-2022 Interdisciplinary Note - Exercise Science Instructor Normal [facility] Comment on above: Result Comment: Elec tronically Signed By: Jose HAYDEN, Norma\.br\Date and Time Signed: 11/29/22 15:07 EDT Lipid Panelon 11-29-2022 Cholesterol [Mass/Vol] 114 mg/dL Low 120-200 [facility] Comment on above: Performed By: #### 2 333898, 7096749, 6962021, 87964635, 85330442, 9841419, 25122024, 6589502, 15884756, 317614770, 4354017, 8817708 ####[facility] [address] [place] [address] Cholesterol in HDL [Mass/Vol] 50 mg/dL Invalid Interpretation Code [facility] Comment on above: Result Comment: HDL > or equal to 60 mg/dL: Low cardiovascular riskHDL < 40 mg/dL : High cardiovascular risk Performed By: #### 2 155345, 4579470, 1355843, 90349536, 56740720, 6567679, 63674102, 7183515, 14229316, 847757393, 2801920, 6586006 ####[facility] [address] [place] [address] Cholesterol in LDL [Mass/Vol] 43 mg/dL Normal <=129 [facility] Comment on above: Performed By: #### 2 455736, 8117327, 0218400, 83924049, 25105693, 9367938, 58990507, 2090871, 55083230, 228830444, 3317303, 1740604 ####[facility] [address] [place] [address] Cholesterol in VLDL [Mass/Vol] 14 mg/dL Normal 7-40 [facility] Comment on above: Performed By: #### 2 541678, 1343742, 3315299, 23200843, 01397761, 2753263, 96205721, 3766034, 57806503, 564353711, 5538467, 5170193 ####[facility] [address] [place] [address] Triglyceride [Mass/Vol] 72 mg/dL Normal <=149 [facility] Comment on above: Performed By: #### 2 951337, 5633642, 1966826, 89713590, 18213674, 8467041, 17887107, 4173590, 53463119, 352878295, 1922762, 4293661 ####[facility] [address] [place] [address] Monitor Recordon 11-29-2022 Monitor Record [id number]# 1.00CD:127 Normal [facility] Monitor Record [id number]# 1.00CD:127 Normal [facility] Monitor Record [id number]# 1.00CD:127 Normal [facility] Monitor Record [id number]# 1.00CD:127 Normal [facility] Monitor Record [id number]# 1.00CD:127 Normal [facility] Monitor Record [id number]# 1.00CD:127 Normal [facility] Monitor Record [id number]# 1.00CD:127 Normal [facility] Monitor Record [id number]# 1.00CD:127 Normal [facility] Progress Note-Physicianon Progress Note-Physician Normal [facility] Comment on above: Result Comment: Elec tronically Signed By: New Johnson DO.br\Date and Time Signed: 11/29/22 10:54 EDT RAD - Preliminary Cat Scan R eporton 11-29-2022 RAD - Preliminary Cat Scan Report [id number] #1.00CD:127 Normal [facility] Sed Rate Automatedon 023 Sed Rate Automated 17 mm/hr Normal 0-19 [facility] Comment on above: Performed By: #### 2 976529, 5739689, 9333365, 43048717, 75703664, 7259887, 15829819, 9166860, 08423181, 803848560, 3370395, 8408005 ####[facility] [address] [place] [address] TSH With T4fr Reflexon 11-29 TSH Qn 3.43 m[IU]/L Normal 0.34-5.60 [facility] Comment on above: Performed By: #### 2 667521, 4399898, 4954809, 59221043, 54344139, 8011285, 31112641, 2131941, 09986843, 362716627, 3038871, 1144460 ####[facility] [address] [place] [address] Troponin 6 Hr.on 11-29-2022 Troponin I.cardiac [Mass/Vol] 32.60 pg/mL Normal 15.90-38.40 [facility] Comment on above: Result Comment: The 95% CI (Confidence Interval) PPV (Positive Predictive Value) for myocardial infarction in females is 38 pg/mL, in males 51 pg/mL. The results should be used in conjunction with clinical conditions of myocardial infarction.(Access High Sensitivity Troponin I Instructions For Use, [place], December 2017) Performed By: #### 1 [id number] ####[facility] [address] [place] [address] Troponin 9 Hr.on 11-29-2022 Troponin I.cardiac [Mass/Vol] 37.00 pg/mL Normal 15.90-38.40 [facility] Comment on above: Result Comment: The 95% CI (Confidence Interval) PPV (Positive Predictive Value) for myocardial infarction in females is 38 pg/mL, in males 51 pg/mL. The results should be used in conjunction with clinical conditions of myocardial infarction.(Access High Sensitivity Troponin I Instructions For Use, [place], December 2017) Performed By: #### 1 5573835 ####[facility] [address] [place] [address] Vitamin D 25 Hydroxyon 11-29 25-hydroxyvitamin D3 [Mass/Vol] ng/mL Low 30.0-100.0 [facility] Comment on above: Result Comment: Vit palacios D deficiency has been defined as a level of serum 25-OH vitamin D less than 20 ng/mL (1,2) by the [place] [employer] and an Endocrine Society practice guideline. The Endocrine Society further defined vitamin D insufficiency as a level between 21 and 29 ng/mL (2). 1. IOM ([place] of [employer]). 2010. Dietary reference intakes for calcium and D. [place]: The National Academies Press. 2. Patricia MF, Parisa AGUIRRE, Reji PETERS, et al. Evaluation, treatment, and prevention of vitamin D deficiency: an Endocrine Society clinical practice guideline. JCEM. 2010; 96 (7):1911-30. Performed By: #### 2 633299, 4477883, 9867549, 16706282, 60383171, 7933881, 39210407, 9136185, 53857133, 628621465, 3445788, 1679025 ####[facility] [address] [place] [address] eGFRon 11-29-2022 GFR/1.73 sq M.predicted among non-blacks MDRD (S/P/Bld) [Vol rate/Area] 69 mL/min/1.73 m2 Normal >=59 [facility] Comment on above: Order Comment: Order added by Discern Expert. Result Comment: Shark Biologist earnest kidney disease could be indicated at eGFR's of less than 60 mL/min/1.73m2. Kidney failure is indicated at less than 15 mL/min/1.73m2. Performed By: #### 2 482203, 6783856, 8255966, 84377300, 08596403, 2257874, 92431805, 9285937, 81782220, 535221773, 0000128, 0801363 ####[facility] [address] [place] [address] Auto Diffon 11-28-2022 Basophils/100 WBC (Bld) 0.7 % Normal 0.0-2.0 [facility] Comment on above: Order Comment: Order Added by Discern Expert. Performed By: #### 1 4620783, 0354302, 9122971, 2090988, 98644271 ####[address] [place] [address] Basophils/Leukocytes Auto (Bld) [Pure # fraction] 0.0 E9/L Normal 0.0-0.2 [facility] Comment on above: Order Comment: Order Added by Discern Expert. Performed By: #### 1 0150664, 5069407, 3335082, 6306128, 73975888 ####[address] [place] [address] Eosinophils/100 WBC (Bld) 7.4 % Normal 0.0-8.0 [facility] Comment on above: Order Comment: Order Added by Discern Expert. Performed By: #### 1 3317063, 0331671, 8772910, 7902522, 15466701 ####[address] [address] Eosinophils/Leukocytes Auto (Bld) [Pure # fraction] 0.5 E9/L Normal 0.0-0.5 [facility] Comment on above: Order Comment: Order Added by Discern Expert. Performed By: #### 1 4161960, 8775789, 4424652, 5793418, 12582084 ####[address] [address] Lymphocytes/100 WBC (Bld) 9.3 % Low 14.0-50.0 [facility] Comment on above: Order Comment: Order Added by Discern Expert. Performed By: #### 1 4921069, 0165086, 4351090, 7843398, 48374103 ####[address] [place] [address] Lymphocytes/Leukocytes Auto (Bld) [Pure # fraction] 0.7 E9/L Low 1.0-4.0 [facility] Comment on above: Order Comment: Order Added by Discern Expert. Performed By: #### 1 7142733, 1192371, 3114651, 9228306, 16220586 ####[address] [address] Monocytes/100 WBC (Bld) 6.6 % Normal 4.0-14.0 [facility] Comment on above: Order Comment: Order Added by Discern Expert. Performed By: #### 1 8429421, 3315583, 1640089, 1419331, 85129577 ####[facility] [address] [place] [address] Monocytes/Leukocytes Auto (Bld) [Pure # fraction] 0.5 E9/L Normal 0.2-1.0 [facility] Comment on above: Order Comment: Order Added by Discern Expert. Performed By: #### 1 5423900, 9560625, 0936721, 9453619, 54547359 ####[address] [place] [address] Neutrophils/100 WBC (Bld) 76.0 % High 36.0-75.0 [facility] Comment on above: Order Comment: Order Added by Discern Expert. Performed By: #### 1 1947133, 4419725, 2207471, 5622666, 23605846 ####[address] [place] [address] Neutrophils/Leukocytes Auto (Bld) [Pure # fraction] 5.4 E9/L Normal 2.0-7.5 [facility] Comment on above: Order Comment: Order Added by Discern Expert. Performed By: #### 1 2972953, 2972490, 8154033, 6509379, 76546291 ####[facility] [address] [place] [address] BMPon 11-28-2022 Creatinine [Mass/Vol] 1.0 mg/dL Normal 0.5-1.3 [facility] Comment on above: Performed By: #### 1 2758924, 7522480, 9095721, 2754527, 51216156 ####[address] [place] [address] Urea nitrogen [Mass/Vol] 16 mg/dL Normal 5-21 [facility] Comment on above: Performed By: #### 1 3949071, 3870630, 4341206, 6050946, 83934330 ####[facility] [address] [place] [place] [address] Urea nitrogen/Creatinine [Mass ratio] 16 No Units Normal 10-20 [facility] Comment on above: Performed By: #### 1 7912476, 8695321, 1519280, 0391039, 75897825 ####[facility] [address] [place] [address] Anion gap [Moles/Vol] 10 mmol/L Normal 6-16 [facility] Comment on above: Performed By: #### 1 7925355, 0587164, 7510518, 3318848, 31588457 ####[facility] [address] [place] [address] Calcium [Mass/Vol] 8.8 mg/dL Low 8.9-11.1 [facility] Comment on above: Performed By: #### 1 5929415, 4363991, 2337322, 9509073, 32166011 ####[facility] [address] [facility] [place] [address] Chloride [Moles/Vol] 105 mmol/L Normal 101-111 [facility] Comment on above: Performed By: #### 1 1916373, 2831359, 2609534, 1253296, 48943185 ####[facility] [address] [place] [address] CO2 [Moles/Vol] 28 mmol/L Normal 21-31 [facility] Comment on above: Performed By: #### 1 1297953, 9999744, 2332946, 7398993, 17385143 ####[facility] [address] [address] Glucose [Mass/Vol] 114 mg/dL Normal 55-199 [facility] Comment on above: Result Comment: If t his glucose result represents a fasting glucose, interpretation should refer to the following reference range: 55-99 mg/dL Performed By: #### 1 7424154, 0363543, 3918795, 6997742, 10163756 ####[facility] [address] [place] [address] Potassium [Moles/Vol] 4.1 mmol/L Normal 3.5-5.3 [facility] Comment on above: Performed By: #### 1 9263332, 6734008, 4335531, 4191987, 66815294 ####[facility] [address] [place] [address] Sodium [Moles/Vol] 139 mmol/L Normal 135-145 [facility] Comment on above: Performed By: #### 1 9524963, 3301068, 6949054, 9468195, 74058548 ####[facility] [address] [place] [address] Blood Gas Art, with Lytes, G christal, [place] 11-28-2022 a/A Ratio Art 53.40 % Normal >=0.80 [facility] Comment on above: Performed By: #### 4 66593486 ####[address] [address] AaDO2 Art 64.9 mmHg High 5.0-15.0 [facility] Comment on above: Performed By: #### 4 51507531 ####[address] [address] Allens Test Positive Normal [facility] Comment on above: Performed By: #### 4 03207385 ####[facility] [address] [place] [address] Base Excess Arterial 2.9 mmol/L Normal >=2.8 [facility] Comment on above: Performed By: #### 4 04455668 ####[facility] [address] [place] [address] cCa2+ Art 4.88 mg/dL Normal 4.40-5.30 [facility] Comment on above: Performed By: #### 4 15623944 ####[facility] [address] [place] [address] cCl- Art 103.0 mmol/L Normal 101.0-111.0 [facility] Comment on above: Performed By: #### 4 01515172 ####[facility] [address] [place] [address] cGlu Art 98 mg/dL Normal 55-99 [facility] Comment on above: Performed By: #### 4 27448382 ####[facility] [address] [facility] [place] [address] cK+ Art 3.6 mmol/L Normal 3.5-5.3 [facility] Comment on above: Performed By: #### 4 88064757 ####[address] [place] [address] cLac Art .6 mmol/L Normal .5-2.2 [facility] Comment on above: Performed By: #### 4 29815061 ####[address] [facility] [place] [address] lead painter+ Art 139.0 mmol/L Normal 135.0-145.0 [facility] Comment on above: Performed By: #### 4 25253098 ####[facility] [address] [place] [address] Drawn by nmb Invalid Interpretation Code [facility] Comment on above: Performed By: #### 4 55262386 ####[facility] [address] [facility] [address] FCOHb Art 1.5 % Normal 1.5-4.9 [facility] Comment on above: Result Comment: Refe rence rangeNonsmoker <1.5%Smoker <5.0%Heavy Smoker <9.0% Performed By: #### 4 69891851 ####[facility] [address] [facility] [place] [address] FIO2 BG 28 Invalid Interpretation Code [facility] Comment on above: Performed By: #### 4 75544351 ####[facility] [address] [facility] [place] [address] Flow 2 Invalid Interpretation Code [facility] Comment on above: Performed By: #### 4 66976284 ####[address] [place] [address] FMetHb Art 0.3 % Normal 0.0-1.9 [facility] Comment on above: Performed By: #### 4 63392545 ####[address] [address] FO2Hb Art 93.7 % Normal 93.0-100.0 [facility] Comment on above: Performed By: #### 4 76321812 ####[address] [address] HCO3 (Bld) [Moles/Vol] 26.9 mmol/L High 22.0-26.0 [facility] Comment on above: Performed By: #### 4 53916183 ####[address] [address] Hemoglobin (Bld) [Mass/Vol] 11.9 g/dL Low 12.0-17.0 [facility] Comment on above: Performed By: #### 4 64646220 ####[address] [address] Oxygen saturation in Blood 95.4 % Normal 95.0-100.0 [facility] Comment on above: Performed By: #### 4 93612742 ####[address] [address] P CO2 Arterial 47.6 mmHg High 35.0-45.0 [facility] Comment on above: Performed By: #### 4 05656342 ####[address] [address] P O2 Arterial 74.3 mmHg Low 80.0-100.0 [facility] Comment on above: Performed By: #### 4 32222945 ####[address] [place] [address] pH Arterial 7.387 Normal 7.350-7.450 [facility] Comment on above: Performed By: #### 4 84991346 ####[address] [place] [address] Sample Site R Radial Normal [facility] Comment on above: Performed By: #### 4 63284500 ####[place] [address] Sample Type Arterial Draw Normal [facility] Comment on above: Performed By: #### 4 13986064 ####[place] [address] CBC w/ Auto Diffon 3 Erythrocyte distribution width (RBC) [Ratio] 14.8 % High 10.9-14.2 [facility] Comment on above: Performed By: #### 1 5371316, 3481214, 3152049, 7688005, 36863463 ####[facility] [address] [place], [place] [address] Hematocrit (Bld) [Volume fraction] 37.3 % Low 37.7-49.0 [facility] Comment on above: Performed By: #### 1 5993186, 3323366, 3915635, 8085151, 57357063 ####[facility] [address] [place], [place] [address] Hemoglobin (Bld) [Mass/Vol] 12.3 g/dL Low 13.5-17.5 [facility] Comment on above: Performed By: #### 1 4429297, 7246658, 7859871, 3592610, 19034982 ####[facility] [address] [place], [place] [address] MCH (RBC) [Entitic mass] 28.3 pg Normal 27.0-34.0 [facility] Comment on above: Performed By: #### 1 2081843, 0748941, 4287142, 6621640, 56436668 ####[facility] [address] [place], [place] [address] MCHC (RBC) [Mass/Vol] 33.0 g/dL Normal 31.4-36.0 [facility] Comment on above: Performed By: #### 1 4193325, 0852020, 6663082, 6508300, 81643337 ####[facility] [address] [place] [address] MCV (RBC) [Entitic vol] 85.9 fL Normal 80.0-100.0 [facility] Comment on above: Performed By: #### 1 2246479, 1415966, 3633562, 9906579, 70723945 ####[facility] [address] [place] [address] Platelet mean volume (Bld) [Entitic vol] 10.4 fL Normal 6.4-10.8 [facility] Comment on above: Performed By: #### 1 6470505, 2896347, 3073955, 4653875, 63547267 ####[address] [address] Platelets (Bld) [#/Vol] 189.0 E9/L Normal 150.0-500.0 [facility] Comment on above: Performed By: #### 1 4103956, 6685306, 0481541, 8377903, 06437484 ####[address] [address] RBC (Bld) [#/Vol] 4.3 E12/L Normal 4.3-5.9 [facility] Comment on above: Performed By: #### 1 5885395, 7976115, 1052451, 2409228, 78698200 ####[address] [address] WBC corrected for nucl RBC Auto (Bld) [#/Vol] 7.1 E9/L Normal 4.0-11.0 [facility] Comment on above: Performed By: #### 1 1257168, 2794991, 0177297, 9710395, 00449185 ####[address] [place] [address] CHEMISTRYOrdered By: SYSTEM SYSTEM on 11-28-2022 Troponin I.cardiac [Mass/Vol] 32.60 pg/mL Normal 15.90 - 38.40 pg/mL [facility] Remisol Troponin I.cardiac [Mass/Vol] 26.90 pg/mL Normal 15.90 - 38.40 pg/mL [facility] Remisol Consent for Treatmenton Consent for Treatment [id number]#1 .00CD:127 Normal [facility] ED Note-Physicianon [...] - 2.2 mmol/L FT Resp Auto SS lead painter+ Art 139.0 mmol/L Normal 135.0 - 145.0 [...] 26.9 mmol/L High 22.0 - 26.0 mmol/L [facility] Resp Auto SS Hemoglobin (Bld) [Mass/Vol] 11.9 g/dL Low 12.0 - 17.0 gm/dL [facility] Resp Auto SS P CO2 Arterial 47.6 mm[Hg] High 35.0 - 45.0 mmHg [facility] Resp Auto SS P O2 Arterial 74.3 mm[Hg] Low 80.0 - 100.0 mmHg [facility] Resp Auto SS pH Arterial 7.387 Normal 7.350 - 7.450 [facility] Resp Auto SS Sample Site R Radial (11/28/22 6:55 PM) Normal [facility] Resp Auto SS Sample Type Arterial Draw (11/28/22 6:55 PM) Normal [facility] Resp Auto SS HEMATOLOGYOrdered By: SYSTEM SYSTEM [...] HemeAutoSS Pre-Arrival Noteon 3 Pre-Arrival Note Normal [facility] Troponin 0 Hr.on 11-28-2022 Troponin I.cardiac [Mass/Vol] 21.80 pg/mL Normal 15.90-38.40 [facility] Comment on above: Result Comment: The 95% CI (Confidence Interval) PPV (Positive Predictive Value) for myocardial infarction in females is 38 pg/mL, in males 51 pg/mL. The results should be used in conjunction with clinical conditions of myocardial infarction.(Access High Sensitivity Troponin I Instructions For Use, [place]ia [place], December 2017) Performed By: #### 1 7314973, 3772487, 5486864, 0469305, 55472946 ####[facility] [address] [place] [address] Troponin 3 Hr.on 11-28-2022 Troponin I.cardiac [Mass/Vol] 26.90 pg/mL Normal 15.90-38.40 [facility] Comment on above: Result Comment: The 95% CI (Confidence Interval) PPV (Positive Predictive Value) for myocardial infarction in females is 38 pg/mL, in males 51 pg/mL. The results should be used in conjunction with clinical conditions of myocardial infarction.(Access High Sensitivity Troponin I Instructions For Use, Claudia Coggon, December 2017) Performed By: #### 1 2663498 ####[address] [place] [address] UA With Cult Reflexon 2022 Crystals LM Ql (Urine sed) Present Normal [facility] Comment on above: Performed By: #### 1 1814547 ####[address] [address] Epithelial cells.squamous LM.HPF (Urine sed) [#/Area] 0-2 Normal 0-2 [facility] Comment on above: Performed By: #### 1 0506577 ####[address] [address] Vale.plasma/Vale.R BC (Bld) [Mass ratio] 0-3 Normal 0-3 [facility] Comment on above: Performed By: #### 1 4903291 ####[facility] [address] [place] [address] Mucus Ql (Urine sed) TRACE Normal [facility] Comment on above: Performed By: #### 1 7889646 ####[facility] [address] [place] [address] WBC LM.HPF (Urine sed) [#/Area] 0-5 Normal 0-5 [facility] Comment on above: Performed By: #### 1 4177911 ####[address] [address] Bilirubin Ql (U) Negative Normal Negative [facility] Comment on above: Performed By: #### 1 5946103 ####[facility] [address] [place] [address] Clarity (U) CLEAR Normal Clear [facility] Comment on above: Performed By: #### 1 8290398 ####[facility] [address] [place] [address] Color (U) YELLOW Normal Yellow [facility] Comment on above: Performed By: #### 1 6186708 ####[facility] [address] [place] [address] Glucose Test strip (U) [Mass/Vol] Negative Normal Negative [facility] Comment on above: Performed By: #### 1 8200014 ####[facility] [address] [place] [address] Hemoglobin Ql (U) Negative Normal Negative [facility] Comment on above: Performed By: #### 1 1773885 ####[address] [address] Ketones (U) [Mass/Vol] Negative Normal Negative [facility] Comment on above: Performed By: #### 1 2563353 ####[facility] [address] [place] [address] Nitrite Ql (U) Negative Normal Negative [facility] Comment on above: Performed By: #### 1 5659794 ####[facility] [address] [place] [address] pH (U) 6.0 [pH] Invalid Interpretation Code 5.0-9.0 [facility] Comment on above: Performed By: #### 1 8865371 ####[address] [address] Protein (U) [Mass/Vol] 2+ Abnormal Negative [facility] Comment on above: Performed By: #### 1 7445601 ####[address] [address] Specific gravity (U) [Rel density] 1.025 Invalid Interpretation Code 1.005-1.030 [facility] Comment on above: Performed By: #### 1 2413165 ####[address] [address] Type of Urine collection method Clean Catch Normal [facility] Comment on above: Performed By: #### 1 1768216 ####[facility] [address] [place] [address] Urobilinogen Qn (U) 0.2 {Lei'U}/dL Normal 0.0-1.0 [facility] Comment on above: Performed By: #### 1 0643305 ####[facility] [address] [place] [address] WBC Auto Ql (U) Negative Normal Negative [facility] Comment on above: Performed By: #### 1 6712693 ####[facility] [address] [place] [address] URINALYSISOrdered By: Emily Suero on 11-28-2022 Bilirubin [...] PM) Normal Negative [facility] UA Auto SS Vale.plasma/Vale.R BC (Bld) [Mass ratio] 0-3 /HPF Normal [...] FT UA Auto SS Urobilinogen Qn (U) 0.8663067 {Lei'U}/dL Normal 0.0 - 1.0 EU/dL FT UA Auto SS WBC Auto Ql (U) Negative (11/28/22 5:55 PM) Normal Negative [facility] UA Auto SS WBC LM.HPF (Urine sed) [#/Area] 0-5 /HPF Normal 0-5/HPF FT UA Auto SS XR Chest Single Viewon 11-28 XR Chest Single View Normal [facility] eGFRon 11-28-2022 GFR/1.73 sq M.predicted among non-blacks MDRD (S/P/Bld) [Vol rate/Area] 77 mL/min/1.73 m2 Normal >=59 [facility] Comment on above: Order Comment: Order added by Discern Expert. Result Comment: Shark Biologist earnest kidney disease could be indicated at eGFR's of less than 60 mL/min/1.73m2. Kidney failure is indicated at less than 15 mL/min/1.73m2. Performed By: #### 1 9177395, 8697415, 4088860, 2159771, 18297397 ####[facility] [address] [place] [address] CHEMISTRYOrdered By: SYSTEM SYSTEM on 11-26-2022 Albumin [...] 2.07 m[IU]/L Normal 0.34 - 5.60 mcIU/mL [facility] [facility] Remisol Urea nitrogen [Mass/Vol] 18 mg/dL Normal 5 - 21 mg/dL [facility] Remisol Urea nitrogen/Creatinine [Mass ratio] 20 mg/mg Normal 10 - 20 [facility] Remisol CMPon 11-26-2022 Albumin [Mass/Vol] 3.7 g/dL Normal 3.3-5.0 [facility] Comment on above: Performed By: #### 2 520906, 8035694, 18828498, 9047982 ####[facility] [address] [place] [address] Albumin/Globulin (S) [Mass conc ratio] 1.2 Normal 1.1-2.2 [facility] Comment on above: Performed By: #### 2 504520, 7392391, 54543620, 8420816 ####[facility] [address] [place] [address] ALP [Catalytic activity/Vol] 38 Int._Unit/L Normal 21-98 [facility] Comment on above: Performed By: #### 2 405980, 3521681, 40117324, 3000815 ####[facility] [address] [place] [address] ALT No additional P-5'-P [Catalytic activity/Vol] 11 Int._Unit/L Normal 6-46 [facility] Comment on above: Performed By: #### 2 405954, 1382703, 54658946, 1341249 ####[facility] [address] [place] [address] Anion gap [Moles/Vol] 14 mmol/L Normal 6-16 [facility] Comment on above: Performed By: #### 2 079199, 3462627, 69401745, 5760265 ####[facility] [address] [place] [address] AST [Catalytic activity/Vol] 15 Int._Unit/L Normal 5-43 [facility] Comment on above: Performed By: #### 2 567191, 4872871, 62339861, 9178584 ####[facility] [address] [place] [address] Bilirubin [Mass/Vol] 1.0 mg/dL Normal 0.0-1.1 [facility] Comment on above: Performed By: #### 2 487412, 5590594, 76963488, 0617468 ####[facility] [address] [place] [address] Calcium [Mass/Vol] 9.2 mg/dL Normal 8.9-11.1 [facility] Comment on above: Performed By: #### 2 690473, 4225765, 21446282, 8536420 ####[facility] [address] [facility] [place] [address] Chloride [Moles/Vol] 107 mmol/L Normal 101-111 [facility] Comment on above: Performed By: #### 2 964026, 9970398, 80873806, 2006335 ####[facility] [address] [facility] [place] [address] CO2 [Moles/Vol] 28 mmol/L Normal 21-31 [facility] Comment on above: Performed By: #### 2 361449, 1367498, 14652695, 2167961 ####[facility] [address] [facility] [place] [address] Creatinine [Mass/Vol] 0.9 mg/dL Normal 0.5-1.3 [facility] Comment on above: Performed By: #### 2 830272, 0036999, 83234953, 5667570 ####[facility] [address] [facility] [address] Globulin (S) [Mass/Vol] 3.2 g/dL Normal 1.4-4.0 [facility] Comment on above: Performed By: #### 2 487771, 9125443, 41776532, 9771816 ####[facility] [address] [facility] [address] Glucose [Mass/Vol] 95 mg/dL Normal 55-199 [facility] Comment on above: Result Comment: If t his glucose result represents a fasting glucose, interpretation should refer to the following reference range: 55-99 mg/dL Performed By: #### 2 527363, 9580582, 73104857, 6211528 ####[facility] [address] [place] [address] Potassium [Moles/Vol] 4.2 mmol/L Normal 3.5-5.3 [facility] Comment on above: Performed By: #### 2 674104, 6871206, 36809266, 3821857 ####[facility] [address] [place] [address] Protein [Mass/Vol] 6.9 g/dL Normal 6.0-7.8 [facility] Comment on above: Performed By: #### 2 981423, 5473499, 07804533, 4814643 ####[facility] [address] [place] [address] Sodium [Moles/Vol] 145 mmol/L Normal 135-145 [facility] Comment on above: Performed By: #### 2 656324, 4718453, 00447773, 3284290 ####[facility] [address] [place] [address] Urea nitrogen [Mass/Vol] 18 mg/dL Normal 5-21 [facility] Comment on above: Performed By: #### 2 334323, 5940539, 75390682, 6408443 ####[facility] [address] [place] [address] Urea nitrogen/Creatinine [Mass ratio] 20 No Units Normal 10-20 [facility] Comment on above: Performed By: #### 2 806694, 8615519, 14607489, 3656258 ####[facility] [address] [place] [address] Consent for Treatmenton 07-0 Consent for Treatment [id number] [facility] [id number]#1 .00CD:127 Normal [facility] Lipid Panelon 11-26-2022 Cholesterol [Mass/Vol] 112 mg/dL Low 120-200 [facility] Comment on above: Performed By: #### 2 815870, 9458390, 86660543, 2659386 ####[facility] [address] [place] [address] Cholesterol in HDL [Mass/Vol] 49 mg/dL Invalid Interpretation Code [facility] Comment on above: Result Comment: HDL > or equal to 60 mg/dL: Low cardiovascular riskHDL < 40 mg/dL : High cardiovascular risk Performed By: #### 2 773560, 9791524, 43101176, 9195743 ####[facility] [address] [place] [address] Cholesterol in LDL [Mass/Vol] 42 mg/dL Normal <=129 [facility] Comment on above: Performed By: #### 2 806321, 7732164, 10494315, 3352307 ####[facility] [address] [place] [address] Cholesterol in VLDL [Mass/Vol] 14 mg/dL Normal 7-40 [facility] Comment on above: Performed By: #### 2 814352, 1629247, 85332304, 3781702 ####[facility] [address] [place] [address] Triglyceride [Mass/Vol] 69 mg/dL Normal <=149 [facility] Comment on above: Performed By: #### 2 821477, 8712747, 65698122, 2557091 ####[facility] [address] [place] [address] Physician Orderon 11-26-2022 Physician Order [id number]# 1.00CD:127 Normal [facility] TSHon 11-26-2022 TSH Qn 2.07 m[IU]/L Normal 0.34-5.60 [facility] Comment on above: Performed By: #### 2 846055, 9242479, 03973280, 8577525 ####[facility] [address] [place] [address] eGFRon 11-26-2022 GFR/1.73 sq M.predicted among non-blacks MDRD (S/P/Bld) [Vol rate/Area] 87 mL/min/1.73 m2 Normal >=59 [facility] Comment on above: Order Comment: Order added by Discern Expert. Result Comment: Shark Biologist earnest kidney disease could be indicated at eGFR's of less than 60 mL/min/1.73m2. Kidney failure is indicated at less than 15 mL/min/1.73m2. Performed By: #### 2 587241, 2407877, 48127715, 6324105 ####[facility] [address] [place] [address] Discharge Instructionson Discharge Instructions [id number]#1 .00CD:127 Normal [facility] Transfer Documentson 023 Transfer Documents [id number]#1 .00CD:127 Normal [facility] Capillary Glucose POCon Glucose [Mass/Vol] 166 mg/dL High 55-99 [facility] Comment on above: Result Comment: Gareth guerrero RN/ Performed By: #### 2 92576312 ####[facility] [address] [place] [address] Glucose [Mass/Vol] 119 mg/dL High 55-99 [facility] Comment on above: Result Comment: Repe at Test Performed By: #### 2 65841662 ####[facility] [address] [place] [address] Discharge Note-Nursingon Discharge Note-Nursing Normal [facility] GnwI8zwa 09-28-2022 HbA1c (Bld) [Mass fraction] 6.4 % High <=5.9 [facility] Comment on above: Order Comment: IF UN ABLE TO ADD TO ED LABS Performed By: #### 2 624157, 753765086 ####[facility] [address] [place] [address] Inpatient Clinical Summaryon 09-28-2022 Inpatient Clinical Summary Normal [facility] Inpatient Patient Summaryon 09-28-2022 Inpatient Patient Summary Normal [facility] Inpatient Patient Summary Normal [facility] Interdisciplinary Note - Santosh e Manageron 09-28-2022 Interdisciplinary Note - Exercise Science Instructor Normal [facility] Comment on above: Result Comment: Elec tronically Signed By: Jose HAYDEN, Norma\.br\Date and Time Signed: 09/28/22 15:54 EDT Monitor Recordon 09-28-2022 Monitor Record [id number]# 1.00CD:127 Normal [facility] Capillary Glucose POCon 05 Glucose [Mass/Vol] 192 mg/dL High 55-99 [facility] Comment on above: Result Comment: Gareth GARDINER Performed By: #### 2 42748470 ####[facility] [address] [place] [address] Glucose [Mass/Vol] 130 mg/dL High 55-99 [facility] Comment on above: Result Comment: No C overage Given Performed By: #### 2 39246771 ####[facility] [address] [place] [address] Glucose [Mass/Vol] 202 mg/dL High 55-99 [facility] Comment on above: Result Comment: Gareth GARDINER Performed By: #### 2 11087790 ####[facility] [address] [place] [address] Glucose [Mass/Vol] 89 mg/dL Normal 55-99 [facility] Comment on above: Result Comment: Gareth GARDINER Performed By: #### 2 98356203 ####[facility] [address] [place] [address] Insurance Correspondence Off iceon 09-27-2022 Insurance Correspondence Office [id number]# 1.00CD:127 Normal [facility] Interdisciplinary Note - Santosh e Manageron 09-27-2022 Interdisciplinary Note - Exercise Science Instructor Normal [facility] Comment on above: [...] Anion gap [Moles/Vol] 9 mmol/L Normal 6-16 [facility] Comment on above: Performed By: #### 2 890687, 416550232 ####[facility] [address] [place] [address] Chloride [Moles/Vol] 105 mmol/L Normal 101-111 [facility] Comment on above: Performed By: #### 2 002601, 746735744 ####[facility] [address] [place] [address] CO2 [Moles/Vol] 26 mmol/L Normal 21-31 [facility] Comment on above: Performed By: #### 2 573877, 708374429 ####[facility] [address] [place] [address] Potassium [Moles/Vol] 4.2 mmol/L Normal 3.5-5.3 [facility] Comment on above: Performed By: #### 2 979352, 939827414 ####[facility] [address] [place] [address] Sodium [Moles/Vol] 136 mmol/L Normal 135-145 [facility] Comment on above: Performed By: #### 2 353594, 847648695 ####[facility] [address] [place] [address] Monitor Recordon 09-27-2022 Monitor Record [id number]# 1.00CD:127 Normal [facility] Monitor Record [id number]# 1.00CD:127 Normal [facility] Progress Note-Nurseon 2022 Progress Note-Nurse Normal [facility] Progress Note-Physicianon Progress Note-Physician Normal [facility] Comment on above: Result Comment: Elec tronically Signed By: Adeline COLEMAN\.br\Date and Time Signed: 09/27/22 15:34 EDT\.br\Electronically Co-Signed By: Adeline COLEMAN\.br\Date and Time Co-Signed: 09/27/22 15:37 EDT\.br\Electronically Co-Signed By: Ganesh Minaya MD\.br\Date and Time Co-Signed: 09/27/22 18:58 EDT Auto Diffon 09-26-2022 Basophils/100 WBC (Bld) 0.5 % Normal 0.0-2.0 [facility] Comment on above: Order Comment: Order Added by Discern Expert. Performed By: #### 1 6984361, 0017673, 6681308, 9339278 ####[facility] [address] [place] [address] Basophils/Leukocytes Auto (Bld) [Pure # fraction] 0.0 E9/L Normal 0.0-0.2 [facility] Comment on above: Order Comment: Order Added by Discern Expert. Performed By: #### 1 4604686, 8327047, 9151115, 4414206 ####[facility] [address] [place] [address] Eosinophils/100 WBC (Bld) 3.3 % Normal 0.0-8.0 [facility] Comment on above: Order Comment: Order Added by Discern Expert. Performed By: #### 1 8008849, 8838054, 7434296, 8708418 ####[facility] [address] [place] [address] Eosinophils/Leukocytes Auto (Bld) [Pure # fraction] 0.3 E9/L Normal 0.0-0.5 [facility] Comment on above: Order Comment: Order Added by Discern Expert. Performed By: #### 1 6077797, 6563034, 1448848, 7770908 ####[place] [place] [place] [address] Lymphocytes/100 WBC (Bld) 9.5 % Low 14.0-50.0 [facility] Comment on above: Order Comment: Order Added by Discern Expert. Performed By: #### 1 0196427, 1283314, 6246793, 6604607 ####[address] [place] [address] Lymphocytes/Leukocytes Auto (Bld) [Pure # fraction] 0.8 E9/L Low 1.0-4.0 [facility] Comment on above: Order Comment: Order Added by Discern Expert. Performed By: #### 1 6254261, 1179658, 3991049, 8089021 ####[address] [address] Monocytes/100 WBC (Bld) 7.2 % Normal 4.0-14.0 [facility] Comment on above: Order Comment: Order Added by Discern Expert. Performed By: #### 1 8802696, 9633465, 4393767, 3138989 ####[address] [place] [address] Monocytes/Leukocytes Auto (Bld) [Pure # fraction] 0.6 E9/L Normal 0.2-1.0 [facility] Comment on above: Order Comment: Order Added by Discern Expert. Performed By: #### 1 5715378, 1461469, 3396097, 0197778 ####[address] [place] [address] Neutrophils/100 WBC (Bld) 79.5 % High 36.0-75.0 [facility] Comment on above: Order Comment: Order Added by Discern Expert. Performed By: #### 1 0286358, 1352466, 1802488, 3033737 ####[facility] [address] [place] [address] Neutrophils/Leukocytes Auto (Bld) [Pure # fraction] 6.7 E9/L Normal 2.0-7.5 [facility] Comment on above: Order Comment: Order Added by Discern Expert. Performed By: #### 1 2683797, 4153466, 4910331, 3197440 ####[facility] [address] [place] [address] BMPon 09-26-2022 Creatinine [Mass/Vol] 1.0 mg/dL Normal 0.5-1.3 [facility] Comment on above: Performed By: #### 1 2534681, 7712499, 7095829, 2199145 ####[facility] [address] [place] [address] Urea nitrogen [Mass/Vol] 25 mg/dL High 5-21 [facility] Comment on above: Performed By: #### 1 7433603, 3285554, 6231112, 2245491 ####[facility] [address] [place] [address] Urea nitrogen/Creatinine [Mass ratio] 25 No Units High 10-20 [facility] Comment on above: Performed By: #### 1 2827090, 6714375, 8685680, 6876949 ####[facility] [address] [place] [address] Anion gap [Moles/Vol] 10 mmol/L Normal 6-16 [facility] Comment on above: Performed By: #### 1 3694054, 2823737, 9671913, 8116828 ####[facility] [address] [place] [address] Calcium [Mass/Vol] 8.9 mg/dL Normal 8.9-11.1 [facility] Comment on above: Performed By: #### 1 0468548, 2004458, 1735402, 4668789 ####[facility] [address] [place] [address] Chloride [Moles/Vol] 101 mmol/L Normal 101-111 [facility] Comment on above: Performed By: #### 1 0692266, 9697668, 8495929, 1430036 ####[facility] [address] [place] [address] CO2 [Moles/Vol] 26 mmol/L Normal 21-31 [facility] Comment on above: Performed By: #### 1 1486142, 2265218, 1733716, 2846105 ####[facility] [address] [place] [address] Glucose [Mass/Vol] 112 mg/dL Normal 55-199 [facility] Comment on above: Result Comment: If t his glucose result represents a fasting glucose, interpretation should refer to the following reference range: 55-99 mg/dL Performed By: #### 1 9343103, 6661612, 8153921, 9586239 ####[facility] [address] [place] [address] Potassium [Moles/Vol] 4.1 mmol/L Normal 3.5-5.3 [facility] Comment on above: Performed By: #### 1 5910688, 8182718, 3438713, 4796975 ####[address] [place] [address] Sodium [Moles/Vol] 133 mmol/L Low 135-145 [facility] Comment on above: Performed By: #### 1 2921152, 9732282, 1652010, 1976241 ####[address] [place] [address] CBC w/ Auto Diffon 3 Erythrocyte distribution width (RBC) [Ratio] 14.6 % High 10.9-14.2 [facility] Comment on above: Performed By: #### 1 2214100, 9419851, 4944428, 2972139 ####[facility] [address] [place] [address] Hematocrit (Bld) [Volume fraction] 37.6 % Low 37.7-49.0 [facility] Comment on above: Performed By: #### 1 6682334, 5226284, 9755874, 9255345 ####[address] [place] [address] Hemoglobin (Bld) [Mass/Vol] 12.5 g/dL Low 13.5-17.5 [facility] Comment on above: Performed By: #### 1 8308163, 1063579, 4799947, 8188090 ####[address] [address] MCH (RBC) [Entitic mass] 28.5 pg Normal 27.0-34.0 [facility] Comment on above: Performed By: #### 1 0510944, 1385587, 0020686, 5303939 ####[place] [address] MCHC (RBC) [Mass/Vol] 33.2 g/dL Normal 31.4-36.0 [facility] Comment on above: Performed By: #### 1 4527440, 9081576, 3455411, 6212710 ####[address] [address] MCV (RBC) [Entitic vol] 85.8 fL Normal 80.0-100.0 [facility] Comment on above: Performed By: #### 1 4467483, 2706594, 3427899, 9218453 ####[address] [place] [address] Platelet mean volume (Bld) [Entitic vol] 10.3 fL Normal 6.4-10.8 [facility] Comment on above: Performed By: #### 1 8871660, 9287561, 5453374, 3226427 ####[address] [address] Platelets (Bld) [#/Vol] 164.0 E9/L Normal 150.0-500.0 [facility] Comment on above: Performed By: #### 1 5974085, 7706731, 5396594, 2646076 ####[address] [place] [address] RBC (Bld) [#/Vol] 4.4 E12/L Normal 4.3-5.9 [facility] Comment on above: Performed By: #### 1 6496653, 8803915, 9615192, 9271392 ####[facility] [address] [place] [address] WBC corrected for nucl RBC Auto (Bld) [#/Vol] 8.4 E9/L Normal 4.0-11.0 [facility] Comment on above: Performed By: #### 1 4670594, 8343265, 4942818, 2769075 ####[facility] [address] [place] [address] Capillary Glucose POCon Glucose [Mass/Vol] 161 mg/dL High 55-99 [facility] Comment on above: Result Comment: Graeth guerrero RN/MD Performed By: #### 2 94416720 ####[facility] [address] [place] [address] Consent for Treatmenton Consent for Treatment [id number]#1 .00CD:127 Normal [facility] ED Clinical Summaryon 2022 ED Clinical Summary Normal [facility] ED Note-Physicianon 09-27-19 ED Note-Physician [facility] Pre-[facility] Pre-Arrival Note Normal [facility] Progress Noteson 09-26-2022 Voice Engineer Authentication Interface Message Text EMERGENCY TRIAGE, TREAT AND TRANSPORT (ET3) DOCUMENTATION OF TELEHEALTH VISIT Date / Time: 09/26/2022929 Name: Clyde Humphrey : 1945 SSN: [id number] EMS Agency: [facility] [x] Verbal consent obtained [] [...] Completed by: Coby Lugo MD Normal [employer] UA With Cult Reflexon 2022 Bilirubin Ql (U) Negative Normal Negative [facility] Comment on above: Order Comment: can s traight cath if needed. Performed By: #### 1 2020473 ####[facility] [address] [place] [address] Clarity (U) CLEAR Normal Clear [facility] Comment on above: Order Comment: can s traight cath if needed. Performed By: #### 1 4251195 ####[facility] [address] [place] [address] Color (U) YELLOW Normal Yellow [facility] Comment on above: Order Comment: can s traight cath if needed. Performed By: #### 1 5556367 ####[facility] [address] [place] [address] Epithelial cells.squamous LM.HPF (Urine sed) [#/Area] 0-2 Normal 0-2 [facility] Comment on above: Order Comment: can s traight cath if needed. Performed By: #### 1 4382941 ####[facility] [address] [place] [address] Glucose Test strip (U) [Mass/Vol] Negative Normal Negative [facility] Comment on above: Order Comment: can s traight cath if needed. Performed By: #### 1 0348689 ####[facility] [address] [place] [address] Hemoglobin Ql (U) Negative Normal Negative [facility] Comment on above: Order Comment: can s traight cath if needed. Performed By: #### 1 6223041 ####[facility] [address] [place] [address] Ketones (U) [Mass/Vol] Negative Normal Negative [facility] Comment on above: Order Comment: can s traight cath if needed. Performed By: #### 1 8470785 ####[facility] [address] [place] [address] Vale.plasma/Vale.R BC (Bld) [Mass ratio] 0-3 Normal 0-3 [facility] Comment on above: Order Comment: can s traight cath if needed. Performed By: #### 1 2012245 ####[facility] [address] [place] [address] Nitrite Ql (U) Negative Normal Negative [facility] Comment on above: Order Comment: can s traight cath if needed. Performed By: #### 1 5457840 ####[facility] [address] [place] [address] pH (U) 5.5 [pH] Invalid Interpretation Code 5.0-9.0 [facility] Comment on above: Order Comment: can s traight cath if needed. Performed By: #### 1 5649172 ####[facility] [address] [place] [address] Protein (U) [Mass/Vol] Negative Normal Negative [facility] Comment on above: Order Comment: can s traight cath if needed. Performed By: #### 1 0957151 ####[facility] [address] [place] [address] Specific gravity (U) [Rel density] 1.025 Invalid Interpretation Code 1.005-1.030 [facility] Comment on above: Order Comment: can s traight cath if needed. Performed By: #### 1 4354890 ####[address] [address] Type of Urine collection method Clean Catch Normal [facility] Comment on above: Order Comment: can s traight cath if needed. Performed By: #### 1 7275573 ####[address] [address] Urobilinogen Qn (U) 1.0 {Lei'U}/dL Normal 0.0-1.0 [facility] Comment on above: Order Comment: can s traight cath if needed. Performed By: #### 1 3994855 ####[facility] [address] [place] [address] WBC Auto Ql (U) Negative Normal Negative [facility] Comment on above: Order Comment: can s traight cath if needed. Performed By: #### 1 4184321 ####[address] [address] WBC LM.HPF (Urine sed) [#/Area] 0-5 Normal 0-5 [facility] Comment on above: Order Comment: can s traight cath if needed. Performed By: #### 1 7455914 ####[address] [address] XR Chest Single Viewon 09-26 XR Chest Single View Normal [facility] eGFRon 09-26-2022 GFR/1.73 sq M.predicted among non-blacks MDRD (S/P/Bld) [Vol rate/Area] 77 mL/min/1.73 m2 Normal >=59 [facility] Comment on above: Order Comment: Order added by Discern Expert. Result Comment: Shark Biologist earnest kidney disease could be indicated at eGFR's of less than 60 mL/min/1.73m2. Kidney failure is indicated at less than 15 mL/min/1.73m2. Performed By: #### 1 0923460, 2306175, 4016895, 5329411 ####[facility] [address] [place] [address] Progress Noteson 09-07-2022 Voice Engineer Authentication Interface Message Text EMERGENCY TRIAGE, TREAT AND TRANSPORT (ET3) DOCUMENTATION OF TELEHEALTH VISIT Date / Time: 09/06/20222146 Name: Clyde Humphrey : 1945 SSN: [id number] EMS Agency: [facility] [x] Verbal consent obtained [] [...] Completed by: Marcelino Echavarria MD Normal [facility] [employer] [facility] Q - CULTURE,URINE,ROUTINEon 06-23-2021 CULTURE, URINE, ROUTINE SEE NOTE Normal N [facility] Tow Operator Comment on above: Order Comment: [facility] Testing performed at: [employer] [facility], [address] [facility], [address] [place] [address], [id number], Glass Artist: Archie Sinha MD [facility] Collection Date/Time: [id number] [facility] Results Received Date/Time: [id number] [facility] Reported Date/Time: [id number] Result Comment: CULT URE, URINE, ROUTINE Micro Number: [id number] Test Status: Final Specimen Source: Urine Specimen Quality: Adequate Result: Mixed genital alvin isolated. These superficial bacteria are not indicative of a urinary tract infection. No further organism identification is warranted on this specimen. If clinically indicated, recollect clean-catch, mid-stream urine and transfer immediately to Urine Culture Transport Tube. Performed By: #### [id number] #### [facility] Default [address] [place] [address] Q - CULTURE,URINE,ROUTINEon 05-05-2021 CULTURE, URINE, ROUTINE SEE NOTE Normal N [facility] Tow Operator Comment on above: Order Comment: [facility] Testing performed at: [employer] [facility], [address] , [address] [place] [address], [phone], Glass Artist: Archie Sinha MD [facility] Collection Date/Time: [id number] [facility] Results Received Date/Time: [id number] [facility] Reported Date/Time: [id number] Result Comment: CULT URE, URINE, ROUTINE Micro Number: [id number] Test Status: Final Specimen Source: Urine Specimen Quality: Adequate Result: Growth of mixed alvin was isolated, suggesting probable contamination. No further testing will be performed. If clinically indicated, recollection using a method to minimize contamination, with prompt transfer to Urine Culture Transport Tube, is recommended. Performed By: #### 6 [id number] #### [facility] Default [address] [place] [address] Vital Signs Date Time Vital Sign Value Performing Clinician Facility 01-24-2023 10:00-0400 Hourly Rounding Mbanefo OJUKWU [facility] 01-24-2023 10:00-0400 Promise to Return Mbanefo OJUKWU [facility] 01-24-2023 09:00-0400 Hourly Rounding Mbanefo OJUKWU [facility] 01-24-2023 09:00-0400 Promise to Return Mbanefo OJUKWU [facility] 01-24-2023 08:29-0400 Diastolic blood pressure 73 mm[Hg] Mbanefo OJUKWU [facility] 01-24-2023 08:29-0400 Systolic blood pressure 157 mm[Hg] Mbanefo OJUKWU [facility] 01-24-2023 08:27-0400 Blood Pressure Location Mbanefo OJUKWU [facility] 01-24-2023 08:27-0400 Body temperature 97.7 [degF] Mbanefo OJUKWU [facility] 01-24-2023 08:27-0400 Diastolic blood pressure 73 mm[Hg] Mbanefo OJUKWU [facility] 01-24-2023 08:27-0400 Heart rate 82 /min Mbanefo OJUKWU [facility] 01-24-2023 08:27-0400 Respiratory rate 16 /min Mbanefo OJUKWU [facility] 01-24-2023 08:27-0400 Systolic blood pressure 157 mm[Hg] Mbanefo OJUKWU [facility] 01-24-2023 08:00-0400 Hourly Rounding Mbanefo OJUKWU [facility] 01-24-2023 08:00-0400 Promise to Return Mbanefo OJUKWU [facility] 01-24-2023 00:05-0400 Blood Pressure Location Mbanefo OJUKWU [facility] 01-24-2023 00:05-0400 Body temperature 97.7 [degF] Mbanefo OJUKWU [facility] 01-24-2023 00:05-0400 Diastolic blood pressure 76 mm[Hg] Mbanefo OJUKWU [facility] 01-24-2023 00:05-0400 Heart rate 83 /min Mbanefo OJUKWU [facility] 01-24-2023 00:05-0400 Mean blood pressure 99 mm[Hg] Mbanefo OJUKWU [facility] 01-24-2023 00:05-0400 SaO2% (BldA) [Mass fraction] 97 % Mbanefo OJUKWU [facility] 01-24-2023 00:05-0400 Systolic blood pressure 144 mm[Hg] Mbanefo OJUKWU [facility] 01-23-2023 19:36-0400 Heart rate 81 /min Mbanefo OJUKWU [facility] 01-23-2023 19:36-0400 SaO2% (BldA) [Mass fraction] 96 % Mbanefo OJUKWU [facility] 01-23-2023 19:36-0400 Body temperature 97.34 [degF] Mbanefo OJUKWU [facility] 01-23-2023 19:34-0400 Mean blood pressure 83 mm[Hg] Mbanefo OJUKWU [facility] 01-23-2023 13:00-0400 Body temperature 98.06 [degF] Mbanefo OJUKWU [facility] 01-23-2023 06:55-0400 Blood Pressure Location Mbanefo OJUKWU [facility] 01-23-2023 06:55-0400 Mean blood pressure 89 mm[Hg] Mbanefo OJUKWU [facility] 01-23-2023 06:55-0400 Respiratory rate 16 /min Mbanefo OJUKWU [facility] 01-23-2023 06:55-0400 SaO2% (BldA) [Mass fraction] 93 % Mbanefo OJUKWU [facility] 01-22-2023 23:00-0400 Body temperature 97.88 [degF] Mbanefo OJUKWU [facility] 01-22-2023 23:00-0400 Mean blood pressure 82 mm[Hg] Mbanefo OJUKWU [facility] 01-22-2023 23:00-0400 Respiratory rate 18 /min Mbanefo OJUKWU [facility] 01-22-2023 18:37-0400 Body temperature 97.52 [degF] Mbanefo OJUKWU [facility] 01-22-2023 18:36-0400 Mean blood pressure 81 mm[Hg] Mbanefo OJUKWU [facility] 01-22-2023 16:09-0400 Mean blood pressure 81 mm[Hg] Mbanefo OJUKWU [facility] 01-22-2023 16:07-0400 Body temperature 97.52 [degF] Mbanefo OJUKWU [facility] 01-22-2023 04:50-0400 Heart rate 77 /min Mbanefo OJUKWU [facility] 01-21-2023 21:09-0400 Heart rate 85 /min Mbanefo OJUKWU [facility] 01-21-2023 15:11-0400 Heart rate 78 /min Mbanefo OJUKWU [facility] 12-20-2022 09:37-0400 Hourly Rounding Maycol GEELIN [facility] 12-20-2022 09:37-0400 Promise to Return Maycolyasmine ARRIOLASLIN [facility] 12-20-2022 09:06-0400 Heart rate 65 /min Maycol TSERING [facility] 12-20-2022 09:06-0400 Respiratory rate 20 /min Maycolyasmine ARRIOLASLIN [facility] 12-20-2022 09:06-0400 SaO2% (BldA) [Mass fraction] 92 % Maycolyasmine ARRIOLASLIN [facility] 12-20-2022 08:56-0400 Heart rate 61 /min Maycol TSERING [facility] 12-20-2022 08:56-0400 Respiratory rate 20 /min Maycol TSERING [facility] 12-20-2022 08:56-0400 SaO2% (BldA) [Mass fraction] 92 % Maycol TSERING [facility] 12-20-2022 08:51-0400 Hourly Rounding Maycol TSERING [facility] 12-20-2022 08:51-0400 Promise to Return Maycol TSERING [facility] 12-20-2022 08:50-0400 Hourly Rounding Maycol TSERING [facility] 12-20-2022 08:31-0400 Promise to Return Maycol TSERING [facility] 12-20-2022 07:29-0400 Heart rate 60 /min Maycol TSERING [facility] 12-20-2022 07:29-0400 SaO2% (BldA) [Mass fraction] 93 % Maycol TSERING [facility] 12-20-2022 07:28-0400 Body temperature 98.06 [degF] Maycol TSERING [facility] 12-20-2022 07:28-0400 Diastolic blood pressure 69 mm[Hg] Maycol TSERING [facility] 12-20-2022 07:28-0400 Mean blood pressure 94 mm[Hg] Maycol TSERING [facility] 12-20-2022 07:28-0400 Systolic blood pressure 143 mm[Hg] Maycol TSERING [facility] 12-20-2022 03:25-0400 Respiratory rate 16 /min Maycol TSERING [facility] 12-20-2022 00:15-0400 Body temperature 97.7 [degF] Maycol TSERING [facility] 12-20-2022 00:15-0400 Diastolic blood pressure 56 mm[Hg] Maycol TSERING [facility] 12-20-2022 00:15-0400 Systolic blood pressure 135 mm[Hg] Maycol TSERING [facility] 12-19-2022 19:28-0400 Body temperature 98.42 [degF] Myacol TSERING [facility] 12-19-2022 19:27-0400 Diastolic blood pressure 69 mm[Hg] Maycol TSERING [facility] 12-19-2022 19:27-0400 Mean blood pressure 90 mm[Hg] Maycol TSERING [facility] 12-19-2022 19:27-0400 Systolic blood pressure 134 mm[Hg] Maycol TSERING [facility] 12-19-2022 16:26-0400 gluc 111 mg/dL Maycol TSERING [facility] 12-19-2022 16:06-0400 Mean blood pressure 95 mm[Hg] Maycol TSERING [facility] 12-19-2022 16:00-0400 Body temperature 98.06 [degF] Maycol TSERING [facility] 12-19-2022 11:58-0400 gluc 201 mg/dL Maycol TSERING [facility] 12-19-2022 08:18-0400 gluc 93 mg/dL Maycol TSERING [facility] 12-19-2022 08:00-0400 Body temperature 98.6 [degF] Maycol TSERING [facility] 12-18-2022 05:46-0400 Blood Pressure Location Maycol TSERING [facility] 12-18-2022 05:46-0400 Heart rate 67 /min Maycol TSERING [facility] 12-18-2022 05:00-0400 Body temperature 98.42 [degF] Maycol TSERING [facility] 12-18-2022 05:00-0400 Mean blood pressure 78 mm[Hg] Maycol TESRING [facility] 12-18-2022 05:00-0400 Respiratory rate 20 /min Maycol TSERING [facility] 12-18-2022 04:00-0400 Mean blood pressure 77 mm[Hg] Maycol TSERING [facility] 12-18-2022 04:00-0400 Respiratory rate 21 /min Maycol TSERING [facility] 12-18-2022 03:00-0400 Mean blood pressure 75 mm[Hg] Maycol TSERING [facility] 12-18-2022 03:00-0400 Respiratory rate 22 /min Maycol TSERING [facility] 12-18-2022 00:09-0400 Heart rate 85 /min Maycol TSERING [facility] 12-17-2022 23:54-0400 Heart rate 86 /min Maycol TSERING [facility] 12-02-2022 14:00-0400 SaO2% (BldA) [Mass fraction] 93 % Maycol TSERING [facility] 12-02-2022 13:00-0400 Hourly Rounding Maycol TSERING [facility] 12-02-2022 13:00-0400 Promise to Return Maycol TSERING [facility] 12-02-2022 12:58-0400 Heart rate 85 /min Maycol TSERING [facility] 12-02-2022 12:58-0400 SaO2% (BldA) [Mass fraction] 88 % Maycol TSERING [facility] 12-02-2022 12:58-0400 Body temperature 97.7 [degF] Maycol TSERING [facility] 12-02-2022 12:58-0400 Diastolic blood pressure 75 mm[Hg] Maycol TSERING [facility] 12-02-2022 12:58-0400 Mean blood pressure 102 mm[Hg] Maycol TSERING [facility] 12-02-2022 12:58-0400 Systolic blood pressure 157 mm[Hg] Maycol TSERING [facility] 12-02-2022 12:10-0400 Hourly Rounding Maycol TSERING [facility] 12-02-2022 12:10-0400 Promise to Return Maycol TSERING [facility] 12-02-2022 11:30-0400 Hourly Rounding Maycol TSERING [facility] 12-02-2022 11:30-0400 Promise to Return Maycol TSERING [facility] 12-02-2022 08:00-0400 Blood Pressure Location Maycol TSERING [facility] 12-02-2022 08:00-0400 Diastolic blood pressure 79 mm[Hg] Maycol TSERING [facility] 12-02-2022 08:00-0400 gluc 127 mg/dL Maycol TSERING [facility] 12-02-2022 08:00-0400 Heart rate 76 /min Maycol TSERING [facility] 12-02-2022 08:00-0400 Respiratory rate 20 /min Maycol TSERING [facility] 12-02-2022 08:00-0400 Systolic blood pressure 141 mm[Hg] Maycol TSERING [facility] 12-02-2022 07:46-0400 Heart rate 66 /min Maycol TSERING [facility] 12-02-2022 07:46-0400 Respiratory rate 18 /min Maycol TSERING [facility] 12-02-2022 07:40-0400 Respiratory rate 18 /min Myacol TSERING [facility] 12-01-2022 23:32-0400 Body temperature 97.16 [degF] Maycol TSERING [facility] 12-01-2022 23:32-0400 Diastolic blood pressure 77 mm[Hg] Maycol TSERING [facility] 12-01-2022 23:32-0400 Mean blood pressure 101 mm[Hg] Maycol TSERING [facility] 12-01-2022 23:32-0400 Systolic blood pressure 130 mm[Hg] Maycol TSERING [facility] 12-01-2022 20:01-0400 Body temperature 97.16 [degF] Maycol TSERING [facility] 12-01-2022 20:01-0400 Mean blood pressure 101 mm[Hg] Maycol TSERING [facility] 12-01-2022 12:07-0400 Body temperature 97.52 [degF] Maycol TSERING [facility] 12-01-2022 07:30-0400 Body temperature 96.98 [degF] Maycol TSERING [facility] 12-01-2022 06:00-0400 gluc 110 mg/dL Maycol TSERING [facility] 11-30-2022 23:32-0400 FIO2 30 % Maycol TSERING [facility] 11-30-2022 20:04-0400 Mean blood pressure 98 mm[Hg] Maycol TSERING [facility] 11-30-2022 04:38-0400 Mean blood pressure 91 mm[Hg] Maycol TSERING [facility] 11-29-2022 20:16-0400 FIO2 30 % Maycol TSERING [facility] 11-29-2022 19:00-0400 Blood Pressure Location Maycol TSERING [facility] 11-29-2022 08:10-0400 FIO2 30 % Maycol CAGLE [facility] 11-29-2022 04:08-0400 gluc 107 mg/dL Maycol CAGLE [facility] 11-29-2022 04:08-0400 Mean blood pressure 80 mm[Hg] Maycol CAGLE [facility] 11-29-2022 00:16-0400 Heart rate 48 /min Maycol CAGLE [facility] 11-28-2022 22:55-0400 Respiratory rate 19 /min Maycol CAGLE [facility] 11-28-2022 21:45-0400 Respiratory rate 18 /min Maycol CAGLE [facility] 11-28-2022 20:45-0400 Respiratory rate 22 /min Maycol CAGLE [facility] 11-28-2022 18:55-0400 SaO2% (BldA) [Mass fraction] 95.4 % Maycol CAGLE [facility] 11-28-2022 17:13-0400 Heart rate 59 /min Maycol CAGLE [facility] 09-07-2022 01:10-0400 Diastolic blood pressure 53 mm[Hg] [facility] 09-07-2022 01:10-0400 Heart rate 70 /min [facility] 09-07-2022 01:10-0400 SaO2% (BldA) [Mass fraction] 96 % [facility] 09-07-2022 01:10-0400 Systolic blood pressure 135 mm[Hg] [facility] En[facility]ters Encounter Date Encounter Type Care Provider Facility Start: 01-04-2024 Emergency department patient visit LOLA C [facility] Start: 02-01-2023 ambulatory Robin Bryant F acility:[facility] Start: 01-21-2023 End: 01-24-2023 Evaluation and management of inpatient New [place] Facility:[facility] Start: 01-21-2023 End: 01-24-2023 Evaluation and management of inpatient Steve MayesJUKWU [facility] Start: 01-15-2023 End: 01-16-2023 ambulatory Donta SHAISTA Facility:CD:[id number] Start: 01-15-2023 End: 01-15-2023 Off-Site [facility] Start: 12-22-2022 End: 12-23-2022 ambulatory Donta SHAISTA Facility:CD:[id number] Start: 12-22-2022 End: 12-22-2022 Off-Site Dontasaroj [facility]ONAN [facility] Start: 12-18-2022 End: 12-20-2022 Evaluation and management of inpatient Maycol Lamas TSERING Facility:[facility] Start: 12-17-2022 End: 12-20-2022 Evaluation and management of inpatient Maycol Lamas TSERING [facility] Start: 12-14-2022 End: 01-16-2023 ambulatory Donta KIRKWOOD Facility:CD:[id number] Start: 12-14-2022 End: 01-16-2023 In-Between Visit [facility] Start: 12-11-2022 ambulatory Dontasaroj NOONAN Facilit y:[facility] Start: 12-03-2022 End: 12-03-2022 Off-Site [facility] Start: 12-03-2022 End: 12-04-2022 ambulatory Donta NOONAN Facility:CD:[id number] Start: 12-02-2022 End: 01-16-2023 ambulatory Donta NOONAN Facility:[facility] Start: 11-30-2022 ambulatory Facility:[id number] Start: 11-30-2022 ambulatory Facility:[id number] Start: 11-29-2022 ambulatory Facility:[id number] Start: 11-29-2022 End: 12-02-2022 Evaluation and management of inpatient Maycol CAGLE Facility:[facility] Start: 11-28-2022 End: 12-02-2022 Evaluation and management of inpatient Maycol CAGLE [facility] Start: 11-26-2022 End: 11-27-2022 ambulatory Bienvenido Barroso Facility:[facility] Start: 11-26-2022 End: 11-26-2022 Patient encounter procedure Bienvenido Barroso [facility] Start: 09-26-2022 End: 09-28-2022 ambulatory UNKNOWN PROVIDER Facility:[facility] Start: 09-07-2022 End: 09-08-2022 ambulatory UNKNOWN PROVIDER Facility:[facility] Start: 2022 End: 2022 ambulatory [facility] Transport Start: 2022 End: 2022 Emergency department patient visit [facility] Triage, Treat and Transport Comment on [...] Visi t (G0439) Annual Wellness Visit (G0439) [facility] Start: 05-14-2018 Pneumococcal vaccination Pneum ococcal Vaccine(s) (65+ yrs) (2 - PPSV23 if available, else PCV20) [facility] Start: 1994 Shingles (RZV) Vacci ne (1 of 2) Shingles (RZV) Vaccine (1 of 2) [facility] Start: 1962 Hepatitis C screening Hepatitis C [facility] [place] Start: 1962 Tetanus + diphtheria + acellular pertussis vaccine (product) Tdap Booster [facility] Immunizations Immunization Date Immunization Notes Care Provider Ryder pitt 03-12-2022 SARS-CoV-2 (COVID-19 ) mRNAMUL.[id number] Donta SHAISTA [facility] 03-17-2021 Influenza, injectabl e, high-dose seasonal, quadrivalent, 0.7 mL, preservative free (RHG=383) [facility] 07-15-2020 Pfizer (12+ yrs) SARS-COV-2 (COVID-19) vaccine, mRNA, spike protein, LNP, pres. free, 30 mcg/0.3mL dose (LDH=772) [facility] 06-26-2020 Pfizer (12+ yrs) SARS-COV-2 (COVID-19) vaccine, mRNA, spike protein, LNP, pres. free, 30 mcg/0.3mL dose (RUF=217) [facility] 06-23-2019 influenza, high dose seasonal, preservative-free [facility] 05-14-2017 influenza, high dose seasonal, preservative-free [facility] 05-14-2017 pneumococcal conjuga te vaccine, 13 valent [facility] 04-04-2014 influenza, injectabl e, madin cee canine kidney, preservative free [facility] NEGATED: Highlighted row has not occurred!06-15-2014 pneumococcal polysaccharide vaccine, 23 valent Bienvenido Barroso [facility] Comment on above: Result Note: pt had vaccine last year per Payers Date Payer Category Payer Self-pay 2022 Unknown [id number] 2022 Medicare [employer] [id number] 2022-Present [address] [place] [address] Medicare [id number] 2022 Unknown [id number] 1945 Unknown [id number] 2.16.840.1.133186.3.579.2.732 1945 Unknown [id number] 2.16.840.1.813646.3.579.2.732 1944 Unknown [id number] 2.16.840.1.070414.3.579.2.356 1944 Unknown [id number] 2.16.840.1.360155.3.579.2.356 1944 Unknown [id number] 2.16.840.1.817057.3.579.2.356 1944 Unknown [id number] 2.16.840.1.678786.3.579.2.72 1944 Unknown [id number] 2.16.840.1.078495.3.579.2.72 1944 Unknown [id number] 2.16.840.1.200993.3.579.2.72 1944 Unknown [id number] 2.16.840.1.813376.3.579.2.727 1944 Unknown [id number] 2.16.840.1.306638.3.579.2.72 1944 Unknown [id number] 2.16.840.1.447720.3.579.2.727 1944 Unknown [id number] 2.16.840.1.856917.3.579.2.727 1944 Unknown [id number] 2.16.840.1.711266.3.579.2.727 1944 Unknown [id number] 2.16.840.1.657584.3.579.2.727 1944 Unknown [id number] 2.16.840.1.051651.3.579.2.72 1944 Unknown [id number] 2.16.840.1.352792.3.579.2.727 1944 Unknown [id number] 2.16.840.1.711100.3.579.2.727 Social History Date Type Detail Facility Tobacco smoking status KYIS Tobacco smoking consumption unknown [facility] Start: 1945 Sex Assigned At [facility] Start: 04-24-2021 Tobacco smoking status Ex-smoker (finding) [facility] Sex Assigned At Male [facility] Functional Status Date Assessment Result Facility 01-21-2023 Functional Status No [facility] 01-21-2023 Functional Status [facility] 12-18-2022 Functional Status N/A [facility] 12-17-2022 Functional Status [facility] 11-29-2022 Functional Status N/A [facility] 11-28-2022 Functional Status [facility] Clinical Notes 09-07-2022 to 01-24-2023 Note Date & Type Note Facility 01-24-2023 Evaluation + Plan note Extrac gi from: Title:Discharge Note Author:New Johnson DO Date:01/24/23 Discharge To, Anticipated II - Correction Unit Discharged to - Home independently Transported [...] When Contact Information Dharmesh POTTS, Bienvenido Chavira, [facility] [place] [place] [address]- Additional Instructions: Dementia, Jllf-tp-Uyhn Extracted from: Title:APSO Note Author:New Johnson DO Gerry e:01/23/23 1. Generalized weakness (R53 .1: Weakness) IV fluids, trend BUN and creatinine PT/OT Currently awaiting pre-CERT for placement 2. Alzheimers disease (G30.9: Alzheimer's disease, unspecified) Continue Seroquel 3. CAD in [place] artery (I25.10: Atherosclerotic heart disease of [place] coronary artery without angina pectoris) Continue aspirin [...] Ordered: Initial Hospital Care/Day Moderate 55 Minutes 19792 Sbsq Hospital Care/Day Straight Fwd 25 Minutes [id number] 2. Alzheimers disease (G30.9: Alzheimer's disease, unspecified) Continue Seroquel 3. CAD in [place] artery (I25.10: Atherosclerotic heart disease of [place] coronary artery without angina pectoris) Continue aspirin [...] (G30.9: Alzheimer's disease, unspecified) 3. CAD in [place] artery (I25.10: Atherosclerotic heart disease of [place] coronary artery without angina pectoris) 4. COPD [...] Ordered: Initial Hospital Care/Day Moderate 55 Minutes [id number] 2. Alzheimers disease (G30.9: Alzheimer's disease, unspecified) Continue Seroquel 3. CAD in [place] artery (I25.10: Atherosclerotic heart disease of [place] coronary artery without angina pectoris) Continue aspirin [...] gait and building on physical strength. [facility]Result Comment: Electronically Signed By: New Johnson DO.candice\Date and Time Signed: 01/24/23 09:57 [id number] Hospital Discharge instructions Patient Education 01/24/2023 09:54:03 Dementia, Osyd-gj-Ikca Dementia Dementia is a condition that affects [...] Follow these instructions at home: Medicines Take bbuk-mpt-ttgnxas and prescription medicines only as told by [...] find more information Alzheimer's Association: www.alz.org National [place] on Aging: www.susie.nih.gov/alzheimers World Health Organization: www.who.int [...] room or: Call your local emergency services (510 in the [place] Call the National Suicide Prevention Lifeline at or 889 in the [place] This is open 24 hours a day. Text the Crisis Text Line at 532862. Summary Dementia often affects memory and thinking. [...] provider. Document Revised: 12/03/2021 Document Reviewed: 09/23/2020 [employer] Patient Education 2022 [employer]. Follow Up Care 01/21/2023 15:06:04 With:Dharmesh POTTS, Bienvenido Chavira, SHEA Address: [address] [place], [place] [address] OSMEL ROSARIO [address]- When: Unknown [facility]08-31-2023 NoteFishGrace Medical CenterComment on above:Result Comment: Electronically Signed By: New Johnson DO.br\Date and Time Signed: 01/21/23 17:53 [id number] Evaluation + Plan note Extracted from: Title:Discharge Note Author:MICHAEL POTTS, Jamir Gerry e:12/20/22 stable Discharge To, Anticipated II - Correction Unit Discharged to - intermediate unit SNF Discharge Diet(s): Calorie Controlled- 1800 Calorie Diet (12/20/22 09:46:00) Prescriptions alprazolam 0.5 mg Tab, 0.5 mg= 1 tab(s), Oral, Daily, PRN aspirin 81 mg Oral EC Tab, 81 mg= 1 tab(s), Oral, Daily Augmentin 875 mg oral tablet, 1 tab(s), Oral, q12hr ergocalciferol 50,000 intl units Cap, 10562 International_Unit= 1 cap(s), Oral, q7day furosemide 40 [...] BID With When Contact Information Bienvenido Barroso [address] [place], [place] [address] (1) Additional Instructions: Call for followup appointment [...] ultimately benefit being only slightly on the drier tender side 5. Coronary artery disease (I25.10: Atherosclerotic heart disease of [place] coronary artery without angina pectoris) Patient had [...] he is actually on antihypertensives at the [facility]. On a prior hospitalization he [...] time. Awaiting verification of meds from the [facility] facility 15. Encounter for deep vein [...] patient's RN it was advised that the half-way was planning on sending a copy of his meds at their facility. I checked the fax machine after evaluating the patient and it has not yet been sent. Await confirmation of meds and doses Extracted from: Title:ED Note Author:Guilherme POTTS, Malcom Date: 1. Right lower lobe pneumoni a [...] Pending * Legionella Antigen Urine 12/18/22 [facility]07-30-2023 NoteCRM entered the room to discuss dc planning. PCP, DME and insurance discussed. Patient is alert andinvolved in plan of care. Contact information given and whiteboard updated. Pt will dc to [facility] room 17 today. CRM to follow.Ciro [facility]. Finan CenterComment on above:Result Comment: Electronically Signed By: Natalie Grant\.br\Date and Time Signed: 12/20/22 11:52 [id number] Carmenza Thomas B. Finan CenterComment on above: Result Comment: Electronically Signed By: Jamir MCKINNEY MD\.br\Date and Time Signed: 12/20/22 10:[id number] Hospital Discharge instructions Patient Education 12/20/2022 09:48:09 [...] a long-term care facility, such as a half-way. Having your kidneys filtered through hemodialysis in [...] hard liquor (44 mL). General instructions Take mrlh-bwo-ppjroym and prescription medicines as told by your [...] are not available, use an alcohol-based hand sign painter apprentice. ?Make sure your health care providers wash [...] and water or with alcohol- based hand sign painter apprentice before and after caring for sick people. [...] bacteria common in health care settings. Take kzrr-jjp-wcdecaw and prescription medicines as told by your [...] provider. Document Revised: 05/31/2022 Document Reviewed: 05/31/2022 [employer] Patient Education 2022 [employer]. Follow Up Care 12/17/2022 23:50:19 With:Bienvenido Barroso Address: [address] [place] [id number] [facility] (1) When: Unknown Comments:Call for followup appointment [facility]07-28-2023 [facility]:Result Comment: Electronically Signed By: Maycol CAGLE DO\.br\Date and Time Signed: 12/18/22 06:27 [id number] [facility] HospitalComment on above:Result Comment: Electronically Signed By: Lizeth Cedeno MD\.br\Date and Time Signed: 12/02/22 12:28 [id number] Evaluation + Plan noteExtracted from: Title:Discharge Note Author:Lizeth Cedeno MD ate:12/02/22 Stable Discharge To, Anticipated II - Correction Unit Discharged to - Home with family care Transported by, Anticipated - Family Discharge Diet(s): Other: Limit fluids to 1800 ml/day (12/02/22 12:23:00) Prescriptions aspirin 81 mg Oral EC Tab, 81 mg= 1 tab(s), Oral, Daily ergocalciferol 50,000 intl units Cap, 64920 International_Unit= 1 cap(s), Oral, q7day furosemide 40 [...] Bedtime With When Contact Information Joanie Jiménez [facility] [address] [place] [address]- Business (1) Additional Instructions: HFpEF Dave [place] [address] [place] [address]- Business (1) Additional Instructions: Cog impariment, Alzhiemer's Bienvenido Barroso In [address] [place] [address]- Business (1) Additional Instructions: Extracted from: Title:UPDATE [...] of CAD and previous coronary interventions in [place] with no indication of recurrent CAD, would not recommend investigation for ischemic heart disease at this time Extracted from: Title:APSO Note Author:Pao POTTS, [facility] Date: Acute respiratory failure wi th [...] Extracted from: Title:SOAP Note: Simple Author:Marcus POTTS, [facility] Date:11/29/22 Impression and Plan CONSULT DICTATED CAME [...] as able, brad varela. -check echo Ordered: [facility] Hospital Care/Day High 50 Minutes 23502 2. Acute on chronic diastolic heart failure (I50.33: Acute on chronic diastolic (congestive) heart failure) c/w spironolactone and lasix IV 40mg qd -strict I/Os and daily weight - last echo was done 2014 with EF of 50%. will recheck this visit Ordered: [facility] Hospital Care/Day High 50 Minutes 66261 3. COPD without exacerbation (J44.9: Chronic obstructive pulmonary disease, unspecified) Ordered: [facility] Hospital Care/Day High 50 Minutes 95200 4. Weakness (R53.1: Weakness) -pt/ot Ordered: [facility] Hospital Care/Day High 50 Minutes 91188 5. Sinus bradycardia (R00.1: Bradycardia, unspecified) baseline. last EKG similar. -pt had decreased HR overnight so BB was held. -continue to monitor on tele Ordered: [facility] Hospital Care/Day High 50 Minutes 52824 6. Coronary artery disease (I25.10: Atherosclerotic heart disease of [place] coronary artery without angina pectoris) -c/w ASA Ordered: [facility] Hospital Care/Day High 50 Minutes 24016 7. Obstructive sleep apnea (G47.33: Obstructive sleep apnea (adult) (pediatric)) -CPAP qHS Ordered: [facility] Care/Day High 50 Minutes 26762 8. Pulmonary hypertension (I27.20: Pulmonary hypertension, unspecified) c/w spironolactone 50mg -lasix 40 mg iv qd -strict I/Os daily weights -check echo Ordered: [facility] Care/Day High 50 Minutes 76859 9. Abdominal pain (R10.9: Unspecified abdominal pain) resolved no complaints this morning Ordered: [facility] Care/Day High 50 Minutes 11125 10. Hypertension (I10: Essential (primary) hypertension) c/w spironolactone Ordered: [facility] Care/Day High 50 Minutes 94252 11. Diabetes (E11.9: Type 2 diabetes mellitus without complications) BGT qACHS -c/w glimepiride Ordered: [facility] Care/Day High 50 Minutes 54380 12. Hyperlipidemia (E78.5: Hyperlipidemia, unspecified) -hold statin due to elevated CK Ordered: [facility] Care/Day High 50 Minutes 84511 13. Chronic anemia (D64.9: Anemia, unspecified) monitor Ordered: [facility] Care/Day High 50 Minutes 53055 14. BPH (benign prostatic hyperplasia) (N40.0: Benign prostatic hyperplasia without lower urinary tract symptoms) c/w tamsulosin Ordered: [facility] Care/Day High 50 Minutes 52761 15. Dementia (F03.90: Unspecified dementia, unspecified severity, without behavioral disturbance, psychotic disturbance, mood disturbance, and anxiety) -c/w seroquel 25mg qHS Ordered: [facility] Care/Day High 50 Minutes 23384 16. Encounter for deep vein thrombosis (DVT) prophylaxis (Z29.9: Encounter for prophylactic measures, unspecified) Ordered: [facility] Care/Day High 50 Minutes 44997 17. Elevated CK (R74.8: Abnormal levels of other serum enzymes) -CK 1000 this morning. will monitor and hold statin - will not give fluids due to current diuresis Ordered: [facility] Hospital Care/Day High 50 Minutes 94697 COPD with acute exacerbation (J44.1: Chronic obstructive pulmonary disease with (acute) exacerbation) Extracted from: Title:Admission H & P Author:TSERING STEIN Maycol Cydney Date:11/28/22 1. Acute respiratory failure with hypoxia [...] artery disease (I25.10: Atherosclerotic heart disease of [place] coronary artery without angina pectoris) Continue aspirin, [...] Scheduled Provider:Donta NOONAN MD Location:Extended Care Appointment Type:[facility]07-10-2023 NoteOT [facility] six clicks score 15/24 = SNF. Patient requires assist w/ all transfers and self care at this time. Inpatient OT services to follow daily to progress w/ functional skills.[facility]07-09-2023 NotePT Evaluation completed with an [facility] score of 16/24. Pt requires Min A for bed mobility and min/Mod A to stand. Pt was able to take two sidesteps. Will follow daily, but SNF [facility] HospitalComment on above:Result Comment: Electronically Signed By: Maycol CAGLE DO\.br\Date and Time Signed: 11/29/22 01:33 [id number] Hospital Discharge instructions Follow Up Care 11/28/2022 17:10:04 With:Joanie Jiménez Address: [facility] [address], [address] [place] [address]- Business (1) When: Unknown Comments:HFpEF With:Dave Cruz Address: [address] [place] [address]- Business (1) When: Unknown Comments:Cog impariment, Alzhiemer's With:Bienvenido Barroso Address: [address] [place] [address]- Business (1) When: Unknown [facility]05-20-2023 [facility] HospitalComment on above:Result Comment: Electronically Signed By: Adeline COLEMAN\.br\Date and Time Signed: 10/10/22 17:53 EDT\.br\Electronically Co- Signed By: Ganesh Minaya MD\.br\Date and Time Co-Signed: 10/10/22 18:51 EDT 09-27-2022 [facility] HospitalComment on above:Result Comment: Electronically Signed By: Adeline COLEMAN\.br\Date and Time Signed: 09/26/22 21:20 EDT\.br\Electronically Co-Signed By: Ganesh Minaya MD\.br\Date and Time Co-Signed: 09/27/22 08:00 [id number] History of Present illness Narrative* Marcelino Echavarria MD - 09/07/2022 1:12 AM EDT Images from the original note were not included. EMERGENCY TRIAGE, TREAT AND TRANSPORT (ET3) DOCUMENTATION OF TELEHEALTH VISIT Date / Time: 09/06/20222146 Name: Clyde Humphrey : 1945 SSN: [id number] EMS Agency: [facility] [x] Verbal consent obtained [] [...] No data available for this section [facility]* Diagnosis Fall, initial encounter- Primary [facility] No data available for this section [facility] No data available for this section [facility] Summary Purpose Family History No [...] section and content) DATE CREATED AUTHOR 06/26/2021 [facility] dical Specialist DATE CREATED AUTHOR AUTHOR'S ORGANIZ ATION 09/30/2022 [facility] DATE CREATED AUTHOR AUTHOR'S ORGANIZ ATION 12/05/2022 [facility] DATE CREATED AUTHOR AUTHOR'S ORGANIZ ATION 03/26/2023 [facility] DATE CREATED AUTHOR AUTHOR'S ORGANIZ ATION 05/04/2023 [facility] DATE CREATED AUTHOR AUTHOR'S ORGANIZ ATION 01/06/2024 [facility] Reason for Visit (unrecogniz ed section and content) Reason Comments Fall Patient Care team informatio n (unrecognized section and content) Personnel Name: Bienvenido Barroso MD Address: Address: [address] [place] [address] Name: Andrew Rodriguez Personnel Name: Bienvenido Barroso MD Address: Address: [address] [place] [address] Name: Andrew Rodriguez Personnel Name: Bienvenido Barroso MD Address: Address: [address] [place] [address] Name: Andrew Rodriguez Personnel Name: Bienvenido Barroso MD Address: Address: [address] [place] [address] Name: Andrew Rodriguez Personnel Name: Bienvenido Barroso MD Address: Address: [address] [place] [address] Name: Andrew Rodriguez Personnel Name: Bienvenido Barroso MD Address: Address: [address] [place] [address] Name: Andrew Rodriguez Personnel Name: Bienvenido Barroso MD Address: Address: [address] [place] [address] Name: Andrew Rodriguez Personnel Name: Bienvenido Barroso MD Address: Address: [address] [place] [address] Name: Luis Gil LPN Name: Andrew Rodriguez [...] BE BASED ON THE PRIMARY CLINICAL RECORDS. [employer] provides no warranty or guarantee of the accuracy or completeness of information in this document.
[2024-01-08] MEDS: ATROPINE SULFATE 1 MG/10 ML SYRINGE IVP (19:20)
[2024-01-08 19:25] LABS: Basophils Absolute Auto 0.1 10^3/uL (0.0-0.1); Basophils Percent Auto 0.7 % (0.2-2.0); Eosinophils Absolute Auto 0.6 10^3/uL (0.0-0.7); Hematocrit 43.2 % (42.0-54.0); Hemoglobin 14.1 g/dL (14.0-18.0); Immature Granulocytes Abs Auto 0.09 10^3/uL (0.00-0.03); Lymphocytes Absolute Auto 1.7 10^3/uL (1.2-3.8); Lymphocytes Percent Auto 18.5 % (20.5-60.0); Mean Corpuscular HGB Conc 32.6 g/dL (29.9-35.2); Mean Corpuscular Volume 88.9 fL (80.0-94.0); Mean Platelet Volume 12.3 fL (9.5-13.5); Monocytes Percent Auto 11.4 % (1.7-12.0); Neutrophils Absolute Auto 5.5 10^3/uL (1.4-6.5); Neutrophils Percent Auto 61.4 % (43.0-75.0); Platelet Count 275 10^3/uL (150-450); Red Blood Count 4.86 10^6/uL (4.70-6.10); Red Cell Distribution Width 14.5 % (11.0-15.0); White Blood Count 8.9 10^3/uL (4.0-11.0)
[2024-01-08 19:58] LABS: BUN Creatinine Ratio 49.4; Calcium 9.2 mg/dL (8.5-10.1); Carbon Dioxide 30.2 mmol/L (21.0-32.0); Chloride 97 mmol/L (98-107); Estimated GFR (African America 53 (>=60); Estimated GFR (Non-African Ame 44 (>=60); Glucose 120 mg/dL (74-106); Potassium 4.2 mmol/L (3.5-5.1); Sodium 137 mmol/L (136-145); Troponin I High Sensitivity 46.5 pg/mL (4.0-76.1)
[2024-01-08] MEDS: DOPAMINE HCL IV (20:10)
[2024-01-08] MEDS: D5W IV (20:10)
[2024-01-08] MEDS: 0.9 % SODIUM CHLORIDE 500 ML IV (20:12)
--- NOTE | 2024-01-08 20:13 | ED.GENADUL1 ---
HPI HPI - General Adult General Chief complaint: Arrhythmia/Palpitations Stated complaint: A FIB Time Seen by Provider: 01/08/24 19:11 Source: EMR Mode of arrival: ambulance Limitations: no limitations History of Present Illness HPI narrative: 78-year-old male presents to the emergency department for a chief complaint of low heart rate. He is not able to provide us much history. He was sent from [facility] when they noticed that his heart rate was low. It was noticed after he received Haldol and Ativan. He does not seem to be complaining of any dizziness. He is a poor historian. According to EHR he was admitted to this hospital about 5 days ago after falling and hitting the bridge of his nose. He had a negative brain scan and CT scan at that time and his EKG at that time showed normal sinus rhythm with a right bundle branch block. He does not seem to be on any beta-blockers or digoxin. Related Data Home Medications ?Medication ?Instructions ?Recorded ?Confirmed acetaminophen 325 mg capsule 650 mg PO Q6H PRN fever or pain 01/31/23 01/08/24 citalopram 20 mg tablet (Celexa) 20 mg PO DAILY 01/31/23 01/08/24 furosemide 40 mg tablet 40 mg PO DAILY 01/31/23 01/08/24 lovastatin 40 mg tablet,extended 40 mg PO QPM 01/31/23 01/08/24 release 24 hr (Altoprev) tamsulosin 0.4 mg capsule (Flomax) 0.4 mg PO BID 01/31/23 01/08/24 albuterol sulfate 2.5 mg/3 mL 2.5 mg inhalation Q6H PRN 01/03/24 01/08/24 (0.083 %) solution for nebulization shortness of breath or wheezing aspirin 81 mg tablet,delayed 81 mg PO DAILY 01/03/24 01/08/24 release (Adult Low Dose Aspirin) cetirizine 10 mg tablet (All Day 10 mg PO DAILY PRN allergy symptoms 01/03/24 01/08/24 Allergy (cetirizine)) cholecalciferol (vitamin D3) 50 50 mcg PO DAILY 01/03/24 01/08/24 mcg (2,000 unit) tablet metformin 500 mg tablet,extended 1,000 mg PO BID 01/03/24 01/08/24 release 24 hr nystatin 100,000 unit/gram topical 1 applic topical TID 01/03/24 01/08/24 powder spironolactone 25 mg tablet 25 mg PO DAILY 01/03/24 01/08/24 Previous Rx's ?Medication ?Instructions ?Recorded haloperidol 1 mg tablet 1 mg PO BID #60 tabs 01/04/24 valproic acid 250 mg capsule 500 mg (2 x 250 mg) PO TID #180 01/04/24 caps Allergies Allergy/AdvReac Type Severity Reaction Status Date / Time No Known Drug Allergies Allergy Verified 01/08/24 19:13 Opioid HPI Opioid Management Most Recent Opioid Data: Last Pain Scale 6 01/04/24 10:19 Last Pain Intensity 3 01/04/24 10:19 Last Pain Assessment 01/04/24 17:18 Last ORT Total Score 0 01/03/24 16:51 Last ORT Risk Category Low Risk 01/03/24 16:51 Review of Systems ROS Narrative Not obtainable, age PFSH [facility] Medical History (Updated 01/08/24 @ 20:16 by Stephen Barlow MD) Laceration of nose ?S01.21XA - Laceration without foreign body of nose, initial encounter (ICD-10) New onset seizure ?R56.9 - Unspecified convulsions (ICD-10) Dementia with behavioral disturbance ?F03.918 - Unspecified dementia, unspecified severity, with other behavioral disturbance (ICD-10) Behavioral problem Sleep apnea ?G47.30 - Sleep apnea, unspecified (ICD-10) COPD (chronic obstructive pulmonary disease) ?J44.9 - Chronic obstructive pulmonary disease, unspecified (ICD-10) Surgical History (Updated 01/03/24 @ 16:01 by Pia Segura LPN) H/O heart artery stent ?Z95.5 - Presence of coronary angioplasty implant and graft (ICD-10) Family History (Updated 01/03/24 @ 16:02 by Pia Segura LPN) Mother Family history of CHF (congestive heart failure) Family history of COPD (chronic obstructive pulmonary disease) Father Family history of CHF (congestive heart failure) Brother Family history of CHF (congestive heart failure) Family history of diabetes mellitus Family history of myocardial infarction Social History (Updated 01/03/24 @ 16:04 by Pia Segura LPN) Within the past year, how often did you have a drink containing alcohol: never Within the past year, how many standard drinks containing alcohol did you have on a typical day: 1 or 2 Within the past year, how often did you have six or more drinks on one occasion: never Total score: 0 Score interpretation: A score less than 4 is consistent with normal alcohol consumption. 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 Known occupational exposures/hazards: No Highest level of school completed/degree received: high school graduate Do you want help with school or training: No Are you now , , , , never or living with a partner: In a typical week, how many times do you talk on the telephone with family, friends, or neighbors: once per week How often do you get together with friends or relatives: once per week How often do you attend congregation or yazidism services: 4 or more times per year Do you belong to any clubs or organizations such as congregation groups unions, fraternal or athletic groups, or school groups: no Total score: 2 Score interpretation: A score of greater than or equal to 2 indicates the lowest level of social isolation. Little interest or pleasure in doing things: not at all Feeling down, depressed, or hopeless: not at all Feel stressed/tense/nervous/anxious/difficulty sleeping: not at all Due to disability, difficulty making decisions: No Do you think of yourself as: straight/heterosexual Gender Identity: male Exam Narrative Exam Narrative: Nurses note and vital signs reviewed and patient is not hypoxic. General: The patient appears in no apparent distress. Patient is resting comfortably on cart. Skin: Warm, dry, no pallor noted. There is no rash noted. Head: Normocephalic, he has bruising around each eye and a healing laceration on the bridge of his nose Eye: Normal conjunctiva, no drainage Ears, Nose, Mouth, and Throat: oral mucosa is moist. Nares patent. Cardiovascular: Bradycardic Respiratory: Patient is in no distress, no accessory muscle use, lungs are clear to auscultation, no wheezing, rales or rhonchi GI: Soft and nontender Musculoskeletal: No joint swelling. No ankle edema Neurological: Awake and alert. He is conversant. Psychiatric: Cooperative Constitutional Vital Signs, click to edit/add: Last Vital Signs Temp 97.5 F L 01/08/24 19:16 Pulse 29 L 01/08/24 20:23 Resp 16 01/08/24 20:17 BP 150/40 H 01/08/24 20:17 Pulse Ox 94 L 01/08/24 20:17 O2 Del Method Room Air 01/08/24 20:17 Course Vital Signs Vital signs: Vital Signs Pulse Rate 39 L 01/08/24 19:07 Respiratory Rate 22 H 01/08/24 19:07 Pulse Oximetry 96 01/08/24 19:07 Oxygen Delivery Method Room Air 01/08/24 19:07 Temperature 97.5 F L 01/08/24 19:16 Pulse Rate 29 L 01/08/24 20:23 Respiratory Rate 16 01/08/24 20:17 Blood Pressure 150/40 H 01/08/24 20:17 Pulse Oximetry 94 L 01/08/24 20:17 Oxygen Delivery Method Room Air 01/08/24 20:17 Medical Decision Making MDM Narrative Medical decision making narrative: Case discussed with Dr. Suárez. He has reviewed the EKG as well as last week's EKG and the patient will be transferred to [facility]. The possibility of the need for pacemaker is entertained. He was given IV atropine, 1 mg, without change in his heart rate and the patient was started on IV dopamine, 5 mcg/kg/min. I have spoken to the ICU fellow at [facility] and the patient is excepted there. Findings are discussed with the patient's doctor as well. Differential Diagnosis Differential Diagnosis: Heart block, bradycardia, medication induced bradycardia Medical Records Medical records reviewed: Yes I reviewed the patient's medical records Lab Data Lab results reviewed: Yes I reviewed the patient's lab results Labs: Lab Results 01/08/24 01/08/24 Range/Units 19:19 19:35 WBC 8.9 (4.0-11.0) 10^3/uL RBC 4.86 (4.70-6.10) 10^6/uL Hgb 14.1 (14.0-18.0) g/dL Hct 43.2 (42.0-54.0) % MCV 88.9 (80.0-94.0) fL MCH 29.0 (25.9-34.0) pg MCHC 32.6 (29.9-35.2) g/dL RDW 14.5 (11.0-15.0) % Plt Count 275 (150-450) 10^3/uL MPV 12.3 (9.5-13.5) fL Neut % (Auto) 61.4 (43.0-75.0) % Lymph % (Auto) 18.5 L (20.5-60.0) % [place] % (Auto) 11.4 (1.7-12.0) % Eos % (Auto) 7.0 (0.9-7.0) % Baso % (Auto) 0.7 (0.2-2.0) % Neut # (Auto) 5.5 (1.4-6.5) 10^3/uL Lymph # (Auto) 1.7 (1.2-3.8) 10^3/uL [place] # (Auto) 1.0 H (0.3-0.8) 10^3/uL Eos # (Auto) 0.6 (0.0-0.7) 10^3/uL Baso # (Auto) 0.1 (0.0-0.1) 10^3/uL Abs Immat Gran (auto) 0.09 H (0.00-0.03) 10^3/uL Imm/Tot Granulo (auto) 1.0 H (0.0-0.5) % Sodium 137 (136-145) mmol/L Potassium 4.2 (3.5-5.1) mmol/L Chloride 97 L (98-107) mmol/L Carbon Dioxide 30.2 (21.0-32.0) mmol/L Anion Gap 14.0 BUN 76.0 H* (7.0-18.0) mg/dL Creatinine 1.54 H (0.70-1.30) mg/dL Est GFR ( Amer) 53 L (>=60) Est GFR (Non-Af Amer) 44 L (>=60) BUN/Creatinine Ratio 49.4 Glucose 120 H (74-106) mg/dL Calcium 9.2 (8.5-10.1) mg/dL Troponin I High Sens 46.5 (4.0-76.1) pg/mL Imaging Data Chest x-ray: Radiologist's impression: ITS Impressions Chest X-Ray 01/08/24 19:16 IMPRESSION: Stable chest x-ray, clear lungs. Prominent cardiomediastinal contour similar to previous. Electronically authenticated by: CHUCKIE FUENTES Date: 01/08/2024 20:06 ECG Data Attestation: I personally reviewed and interpreted this ECG as follows: (EKG on my interpretation shows a ventricular rate of 29 and what appears to be third degree heart block. 5 days ago he was in sinus rhythm with a right bundle branch block.) Critical Care Time Critical Care Time Critical Care Time: Yes Total Critical Care Time: 60 Attestation: Due to the high probability of sudden and clinically significant deterioration in the patient's condition he/she required the highest level of my preparedness to intervene urgently I provided critical care time including documentation time, medication orders and management, reevaluation, vital sign assessment, ordering and reviewing of lab tests, ordering and reviewing of x-ray studies, and admission orders. Aggregate critical care time is 60 minutes including only time during which I was engaged in work directly related to his/her care and did not include time spent treating other patients simultaneously. Discharge Plan Discharge Chief Complaint: Arrhythmia/Palpitations Clinical Impression: Third degree heart block Patient Disposition: [facility] Time of Disposition Decision: 20:16 Discharge Location: [facility] Condition: Critical Mode of Transportation: EMS
[2024-01-08] MEDS: 0.9 % SODIUM CHLORIDE 1,000 ML 100 ML IV (21:10)
[2024-01-08 23:56] LABS: Glucometer 155 mg/dL (74-106)
== END 2024-01-09 00:06 | disposition short-term general hospital (02) ==
PROVIDERS: Emergency Provider Emergency Medicine; PCP Family Medicine
DX: I44.2 Atrioventricular block, complete (principal); Z87.891 Personal history of nicotine dependence
CPT/HCPCS: 36415; 71045; 80048; 84484; 85025; 93005; 96374; 96375; 99285; J0461; J1265

== ENCOUNTER 2024-01-19 02:01 | Outpatient (RCR) | payer OTHER, MEDICAID, SELFPAY ==
[2024-01-19 09:05] LABS: Basophils Percent Auto 0.5 % (0.2-2.0); Eosinophils Absolute Auto 0.7 10^3/uL (0.0-0.7); Eosinophils Percent Auto 7.4 % (0.9-7.0); Hematocrit 41.8 % (42.0-54.0); Hemoglobin 13.2 g/dL (14.0-18.0); Immature Granulocytes Abs Auto 0.14 10^3/uL (0.00-0.03); Immature Granulocytes Pct Auto 1.6 % (0.0-0.5); Lymphocytes Absolute Auto 1.6 10^3/uL (1.2-3.8); Lymphocytes Percent Auto 18.5 % (20.5-60.0); Mean Corpuscular HGB Conc 31.6 g/dL (29.9-35.2); Mean Corpuscular Hemoglobin 28.3 pg (25.9-34.0); Mean Corpuscular Volume 89.7 fL (80.0-94.0); Mean Platelet Volume 11.6 fL (9.5-13.5); Monocytes Absolute Auto 1.1 10^3/uL (0.3-0.8); Monocytes Percent Auto 12.6 % (1.7-12.0); Neutrophils Absolute Auto 5.2 10^3/uL (1.4-6.5); Neutrophils Percent Auto 59.4 % (43.0-75.0); Platelet Count 200 10^3/uL (150-450); Red Blood Count 4.66 10^6/uL (4.70-6.10); Red Cell Distribution Width 14.6 % (11.0-15.0); White Blood Count 8.8 10^3/uL (4.0-11.0)
[2024-01-19 09:17] LABS: BUN Creatinine Ratio 26.4; Calcium 9.5 mg/dL (8.5-10.1); Chloride 102 mmol/L (98-107); Estimated GFR (African America >60 (>=60); Estimated GFR (Non-African Ame 56 (>=60); Glucose 105 mg/dL (74-106); Potassium 4.2 mmol/L (3.5-5.1); Sodium 145 mmol/L (136-145)
[2024-01-19 09:29] LABS: Carbon Dioxide 33.2 mmol/L (21.0-32.0)
== END 2024-01-22 23:59 | disposition home or self-care (01) ==
LOC: LAB 02:01
PROVIDERS: PCP Family Medicine; Visit Provider Family Medicine
DX: Z48.812 Encounter for surgical aftercare following surgery on the circulatory system (principal)
CPT/HCPCS: 36415; 80048; 85025

== ENCOUNTER 2024-02-09 02:45 | Outpatient (RCR) | payer OTHER, MEDICAID, SELFPAY ==
[2024-02-09 09:20] LABS: Basophils Absolute Auto 0.1 10^3/uL (0.0-0.1); Basophils Percent Auto 0.8 % (0.2-2.0); Eosinophils Absolute Auto 0.1 10^3/uL (0.0-0.7); Eosinophils Percent Auto 0.7 % (0.9-7.0); Hematocrit 37.4 % (42.0-54.0); Immature Granulocytes Abs Auto 0.17 10^3/uL (0.00-0.03); Immature Granulocytes Pct Auto 1.9 % (0.0-0.5); Lymphocytes Absolute Auto 1.4 10^3/uL (1.2-3.8); Lymphocytes Percent Auto 15.6 % (20.5-60.0); Mean Corpuscular HGB Conc 32.1 g/dL (29.9-35.2); Mean Corpuscular Hemoglobin 28.8 pg (25.9-34.0); Mean Corpuscular Volume 89.7 fL (80.0-94.0); Mean Platelet Volume 11.7 fL (9.5-13.5); Monocytes Percent Auto 10.9 % (1.7-12.0); Neutrophils Absolute Auto 6.3 10^3/uL (1.4-6.5); Neutrophils Percent Auto 70.1 % (43.0-75.0); Platelet Count 116 10^3/uL (150-450); Red Blood Count 4.17 10^6/uL (4.70-6.10); Red Cell Distribution Width 15.4 % (11.0-15.0); White Blood Count 8.9 10^3/uL (4.0-11.0)
[2024-02-09 09:29] LABS: Anion Gap 6.6; BUN Creatinine Ratio 25.4; Calcium 9.2 mg/dL (8.5-10.1); Carbon Dioxide 37.2 mmol/L (21.0-32.0); Chloride 99 mmol/L (98-107); Estimated GFR (African America >60 (>=60); Estimated GFR (Non-African Ame 55 (>=60); Glucose 126 mg/dL (74-106); Potassium 3.8 mmol/L (3.5-5.1); Sodium 139 mmol/L (136-145)
[2024-02-11 14:01] LABS: Bilirubin Urine NEGATIVE (NEGATIVE); Blood Urine NEGATIVE (NEGATIVE); Clarity Urine CLEAR (CLEAR); Color Urine LT. YELLOW (YELLOW); Glucose Urine UA NEGATIVE (NEGATIVE); Ketones Urine TRACE mg/dL (NEGATIVE); Leukocyte Esterase Urine NEGATIVE (NEGATIVE); Nitrite Urine NEGATIVE (NEGATIVE); Protein Urine NEGATIVE (NEG/TRACE); Urobilinogen Urine 0.2 EU/dL (0.2-1.0); pH Urine 5.5 (5.0-9.0)
[2024-02-11 14:03] LABS: Urine Microscopic Indicated NO
[2024-02-16 10:46] LABS: Bilirubin Urine NEGATIVE (NEGATIVE); Blood Urine NEGATIVE (NEGATIVE); Clarity Urine CLEAR (CLEAR); Color Urine YELLOW (YELLOW); Glucose Urine UA NEGATIVE (NEGATIVE); Ketones Urine TRACE mg/dL (NEGATIVE); Leukocyte Esterase Urine NEGATIVE (NEGATIVE); Nitrite Urine NEGATIVE (NEGATIVE); Protein Urine NEGATIVE (NEG/TRACE); Specific Gravity Urine 1.025 (1.005-1.025); Urobilinogen Urine 0.2 EU/dL (0.2-1.0); pH Urine 5.5 (5.0-9.0)
[2024-02-16 10:52] LABS: Urine Microscopic Indicated NO
== END 2024-02-21 12:40 | disposition home or self-care (01) ==
LOC: LAB 02:45
PROVIDERS: PCP Family Medicine; Visit Provider Nurse Practitioner Family
DX: J44.9 Chronic obstructive pulmonary disease, unspecified (principal); R06.2 Wheezing; N39.0 Urinary tract infection, site not specified
CPT/HCPCS: 36415; 80048; 81003; 85025

== ENCOUNTER 2024-02-25 06:32 | Outpatient (RCR) | payer OTHER, MEDICAID, SELFPAY ==
--- OUTSIDE RECORDS SUMMARY | 2024-02-25 06:36 | XMS_ITS | CCD ---
Author Organization [facility]iniSymi Care Team Providers Care Cable Coverer Name Role Phone Unavailable Primary Care Provider UnavailBienvenido Guillory Primary Care Physician [phone] Andrew Rodriguez Unavailable Unavailable Luis Gil Unavailable [...] Unavailab ksenia NON STAFF Primary Care Unavailable PROVIDER, UNKNOWN Attending Unavailable PROVIDER, UNKNOWN Admitting Unavailable LOLA BRIGGS Consulting Unavailable DONNIE CAVAZOS Referring Unavailable DONNIE CAVAZOS Referring Unavailable ARIC MIRZA Referring Unavailable YESENIA WHITE Referring Unavailable MACY, YOUNGSONORA Admitting Unavailable EN, HAYLEY T Attending Unavailable EN, HAYLEY T Referring Unavailable EN, HAYLEY T Referring Unavailable EN, HAYLEY T Referring Unavailable SHAWN ALEGRIA Attending Unavailable DONNIE CAVAZOS Referring Unavailable DONNIE CAVAZOS Referring Unavailable DONNIE CAVAZOS Referring Unavailable Medications Current Medications Medication Drug Class(es) Dates Sig (Normalized) Sig (Original) acetaminophen 325 mg oral tablet (8 sources) Start: 06-16-2014 take 2 tablets by mouth every six hours as needed for pain acetaminophen 325 mg Tab 650 mg = 2 tab(s), Oral, q6hr, PRN Pain, Refills(s) 0 Start Date: 06/16/14 Status: Ordered [id number] 200 actuat albuterol 0.09 mg/actuat metered dose inhaler (4 sources) beta2-Adrenergic Agonist Start: 04-27-2021 take 2 puff(s) by inhalation four times daily for wheezing Pro-Air HFA CFC free 90 mcg/inh MDI 2 puff(s), Inhalation, QID for wheezing, 8.5 gram, Refill(s) 0, [facility], 167.6, cm, 04/24/21 18:14:00 EST, Height/Length [...] Daily, # 30 tab(s), Refills(s) 0, Pharmacy: [facility], 167, cm, 11/28/22 17:20:00 EDT, Height/Length [...] Daily, # 90 tab(s), Refills(s) 4, Pharmacy: [facility], 160, cm, 12/18/22 0:04:00 EDT, Height/Length Dosing, 94, kg, 12/18/22 0:04:00 EDT, Weight Dosing Start Date: 01/15/23 Status: Ordered Start: 12-03-2022 take 1 tablet by ruperto once daily cholecalciferol 2000 intl units oral tablet (Vitamin D3) 50 mcg = 1 tab(s), Oral, Daily, Refills(s) 0 Start Date: 12/03/22 Status: Ordered citalopram 20 mg oral tablet (4 sources) Serotonin Reuptake Inhibitor Start: 01-15-2023 take 1 tablet by mouth once daily citalopram 20 mg Tab 20 mg = 1 tab(s), Oral, Daily, # 90 tab(s), Refills(s) 4, Pharmacy: [facility], 160, cm, 12/18/22 0:04:00 EDT, Height/Length [...] Daily, # 90 tab(s), Refills(s) 1, Pharmacy: [facility], 160, cm, 12/18/22 0:04:00 EDT, Height/Length Dosing, 94, kg, 12/18/22 0:04:00 EDT, Weight Dosing Start Date: 01/15/23 Status: Ordered Start: 12-02-2022 take 1 tablet by ruperto once daily furosemide 40 mg Tab 40 mg = 1 tab(s), Oral, Daily, # 30 tab(s), Refills(s) 0, Pharmacy: [facility], 167, cm, 11/28/22 17:20:00 EDT, Height/Length [...] day, # 30 tab(s), Refills(s) 0, Pharmacy: [facility], 167, cm, 09/26/22 10:09:00 EDT, Height/Length [...] qHS, # 210 tab(s), Refills(s) 1, Pharmacy: [facility], 160, cm, 12/18/22 0:04:00 EDT, Height/Length [...] Bedtime, # 30 tab(s), Refills(s) 0, Pharmacy: [facility], 167, cm, 11/28/22 17:20:00 EDT, Height/Length Dosing, 99.8, kg, 11/28/22 17:20:00 EDT, Weight Dosing Start Date: 12/02/22 Status: Ordered Start: 05-31-2021 take 1 tablet by ruperto once daily quetiapine 50 mg oral tablet 50 mg = 1 tab(s), Oral, Daily, # 30 tab(s), Refills(s) 0 Start Date: 05/31/21 Status: Ordered spironolactone 25 mg oral tablet (8 sources) Aldosterone Antagonist Start: 01-15-2023 take 1 tablet by mouth once daily spironolactone 25 mg Tab 25 mg = 1 tab(s), Oral, Daily, # 90 tab(s), Refills(s) 1, Pharmacy: [facility], 160, cm, 12/18/22 0:04:00 EDT, Height/Length [...] week(s), # 8 cap(s), Refills(s) 0, Pharmacy: [facility], 167, cm, 11/28/22 17:20:00 EDT, Height/Length [...] (5 sources) Anxiety 12-11-2022 Chronic Cardiac dysrhythmias (3 sources) Sinus bradycardia; Translations: [Bradycardia, unspecified] Onset: 11-29-2022 Episodic Chronic kidney disease (1 source) Chronic kidney disease; Translations: [Chronic kidney disease, unspecified] Onset: 12-18-2022 Chronic Chronic obstructive pulmonary disease and bronchiectasis (13 sources) Chronic obstructive lung disease; Translations: [Acute exacerbation of chronic obstructive airways disease] Onset: 11-29-2022 04-30-2013 Chronic Conduction disorders (4 sources) Conduction disorder, unspecified; 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] Onset: 01-09-2024 Chronic Congestive heart failure; nonhypertensive (10 sources) Congestive heart failure; Translations: [Acute on chronic diastolic heart failure] Onset: 11-29-2022 04-30-2013 Chronic Coronary atherosclerosis and other heart disease (12 sources) Coronary atherosclerosis; Translations: [Atherosclerotic heart disease of [place] coronary artery without angina pectoris] Onset: 11-29-2022 Chronic Deficiency and other anemia (1 source) Anemia; Translations: [Anemia, unspecified] Onset: 11-29-2022 Episodic Deficiency and other anemia (2 sources) Other iron deficiency anemias; Translations: [Other iron deficiency anemias] Onset: 01-09-2024 Episodic Delirium, dementia, and amnestic and other [...] [Unspecified fall, initial encounter] Onset: 12-18-2022 Episodic Epilepsy; convulsions (2 sources) Epilepsy, unspecified, not intractable, without status epilepticus; Translations: [Epilepsy, unspecified, not intractable, without status epilepticus] Onset: 01-09-2024 Chronic Essential hypertension (12 sources) Essential hypertension; Translations: [Essential (primary) hypertension] [...] D deficiency, unspecified] Onset: 12-02-2022 12-02-2022 Chronic Nutritional deficiencies (2 sources) Deficiency of other specified B group vitamins; Translations: [Deficiency of other specified B group vitamins] Onset: 01-09-2024 Episodic Other connective tissue disease (6 sources) Recurrent falls ; Translations: [Repeated falls] Onset: 12-22-2022 Episodic Other diseases of kidney and ureters (7 sources) Urinary tract obstruction; Translations: [Other obstructive and reflux uropathy] Onset: 12-02-2022 Episodic Other gastrointestinal disorders (8 sources) Constipation 04-30-2013 [...] (pediatric)] Onset: 11-29-2022 Chronic Residual codes; unclassified (2 sources) Procedure carried [...] Test Name Value Interpretation Reference Range Facility Office Visiton 01-21-2024 Follow-up visit [id number] Clyde Humphrey 1945 M Date Provider Department Center 01/21/2024 [id number] ALEGRIA [facility] No family history on file Level of Service:84721 [place] POSTOP FOLLOW UP VISIT RELATED TO ORIGINAL PX Normal [facility] 30on 01-16-2024 30 The patient is Moderately Stable - Low risk of patient condition declining or worsening The patient's goals for the shift include alycia The clinical goals for the shift include stable vitals, safety Over the shift, the patient did not make progress toward the following goals. Barriers to progression include none. Recommendations to address these barriers include none Problem: Pain Goal: STG-Pt will verbalize pain management techniques Outcome: Progressing . Normal [facility] BASIC METABOLIC PANELon 08-2 Anion gap [Moles/Vol] 13 mmol/L Normal 7-20 [facility] Comment on above: Performed By: #### L [id number] #### [facility] [address] [place] [address] Calcium [Mass/Vol] 8.8 mg/dL Normal 8.6-10.3 [facility] Comment on above: Performed By: #### L [id number] #### [facility] ([facility]) [address] [place] [address] Chloride [Moles/Vol] 104 mmol/L Normal 98-107 [facility] Comment on above: Performed By: #### L [id number] #### [facility] ([facility]) [address] [place] [address] CO2 [Moles/Vol] 29 mmol/L Normal 21-31 [facility] Comment on above: Performed By: #### L [id number] #### [facility] ([facility]) [address] [place] [address] Creatinine [Mass/Vol] 1.02 mg/dL Normal 0.70-1.30 [facility] Comment on above: Performed By: #### L [id number] #### [facility] ([facility]) [address] [place] [address] GLOMERULAR FILTRATION RATE ML/MIN/1.73 SQ M.PREDICTED 74.8 mL/min/1.73m*2 Normal >60.[address] [facility] Comment on above: Result Comment: The [facility]???s estimated glomerular filtration rate (eGFR) will no longer include consideration of race in its calculation. The National Kidney Foundation???s eGFR Task Force developed new recommendations for the estimation of the glomerular filtration rate in the [place] They recommend immediate implementation of the new equation refit without the race variable in all laboratories because the calculation does not include race. In addition to not including race in the calculation and reporting, it included diversity in its development, and has acceptable performance characteristics and potential consequences that do not disproportionately affect any one group of individuals. Performed By: #### L [id number] #### [facility] ([facility]) [address] [place] [address] Glucose [Mass/Vol] 99 mg/dL Normal 70-100 [facility] Comment on above: Performed By: #### L [id number] #### [facility] ([facility]) [address] [place] [address] Potassium [Moles/Vol] 4.2 mmol/L Normal 3.5-5.1 [facility] Comment on above: Performed By: #### L [id number] #### [facility] ([facility]) [address] [place] [address] Sodium [Moles/Vol] 142 mmol/L Normal 136-145 [facility] Comment on above: Performed By: #### L [id number] #### [facility] ([facility]) [address] [place] [address] Urea nitrogen [Mass/Vol] 27 mg/dL High 7-[address] [facility] Comment on above: Performed By: #### L [id number] #### [facility] ([facility]) [address] [place] [address] UREA NITROGEN/CREATININE (MASS RATIO) IN SER/PLAS 26.5 Normal [facility] Comment on above: Performed By: #### L [id number] #### [facility] ([facility]) [address] [place] [address] CBC WITH AUTO DIFFERENTIALon 01-16-2024 Basophils (Bld) [#/Vol] 0.03 10*3/uL Normal 0.00-0.[address] [facility] Comment on above: Performed By: #### L [id number] #### [facility] ([facility]) [address] [place] [address] Basophils/100 WBC (Bld) 0.4 % Normal 0.0-1.0 U [facility] Comment on above: Performed By: #### L [id number] #### [facility] ([facility]) [address] [place] [address] Eosinophils (Bld) [#/Vol] 0.45 10*3/uL Normal 0.00-0.[address] [facility] Comment on above: Performed By: #### L [id number] #### [facility] ([facility]) [address] [place] [address] Eosinophils/100 WBC (Bld) 5.7 % Normal 0.0-6.[address] [facility] Comment on above: Performed By: #### L [id number] #### [facility] ([facility]) [address] [place] [address] Erythrocyte distribution width (RBC) [Ratio] 14.6 % Normal 11.5-15.[address] [facility] Comment on above: Performed By: #### L [id number] #### [facility] ([facility]) [address] [place] [address] ERYTHROCYTE MEAN CORPUSCULAR HEMOGLOBIN CONCENTRATION (G/DL) BY AUTOMATED 31.6 g/dL Low 32.0-35.[address] [facility] Comment on above: Performed By: #### L [id number] #### [facility] ([facility]) [address] [place] [address] Hematocrit (Bld) [Volume fraction] 37.7 % Low 39.0-55.[address] [facility] Comment on above: Performed By: #### L [id number] #### [facility] ([facility]) [address] [place] [address] Hemoglobin (Bld) [Mass/Vol] 11.9 g/dL Low 13.0-17.[address] [facility] Comment on above: Performed By: #### L [id number] #### [facility] ([facility]) [address] [place] [address] Immature granulocytes (Bld) [#/Vol] 0.18 10*3/uL Normal 0.00-0.[address] [facility] Comment on above: Performed By: #### L [id number] #### [facility] [address] [place] [address] Immature granulocytes/100 WBC (Bld) 2.3 % High 0.0-1.[address] [facility] Comment on above: Performed By: #### L [id number] #### [facility] ([facility]) [address] [place] [address] Lymphocytes (Bld) [#/Vol] 1.51 10*3/uL Normal 1.20-4.[address] [facility] Comment on above: Performed By: #### L [id number] #### [facility] ([facility]) [address] [place] [place] [address] Lymphocytes/100 WBC (Bld) 19.3 % Low 20.0-45.[address] [facility] Comment on above: Performed By: #### L [id number] #### [facility] ([facility]) [address] [place] [address] MCH (RBC) [Entitic mass] 28.4 pg Normal 27.0-33.[address] [facility] Comment on above: Performed By: #### L [id number] #### [facility] ([facility]) [address] [place] [address] MCV (RBC) [Entitic vol] 90.0 fL Normal 82.0-98.0 U [facility] Comment on above: Performed By: #### L [id number] #### [facility] ([facility]) [address] [place] [address] Monocytes (Bld) [#/Vol] 0.90 10*3/uL Normal 0.10-1.[address] [facility] Comment on above: Performed By: #### L [id number] #### [facility] ([facility]) [address] [place] [address] Monocytes/100 WBC (Bld) 11.5 % Normal 5.0-12.0 U [facility] Comment on above: Performed By: #### L [id number] #### [facility] ([facility]) [address] [place] [address] Neutrophils (Bld) [#/Vol] 4.77 10*3/uL Normal 1.60-7.[address] [facility] Comment on above: Performed By: #### L [id number] #### [facility] ([facility]) [address] [place] [address] Neutrophils/100 WBC (Bld) 60.8 % Normal 40.0-72.[address] [facility] Comment on above: Performed By: #### L [id number] #### [facility] ([facility]) [address] [place] [address] NRBC (PER 100 WBCS) BY AUTOMATED COUNT 0.0 % Normal [address] [facility] Comment on above: Performed By: #### L [id number] #### [facility] ([facility]) [address] [place] [address] PLATELETS (10*3/UL) IN BLOOD AUTOMATED COUNT 159 10*3/uL Normal 150-[address] [facility] Comment on above: Performed By: #### L [id number] #### [facility] ([facility]) [address] [place] [address] RBC (Bld) [#/Vol] 4.19 10*6/uL Low 4.20-5.70 [facility] Comment on above: Performed By: #### L [id number] #### [facility] ([facility]) [address] [place] [address] WBC (Bld) [#/Vol] 7.84 10*3/uL Normal 4.00-10.60 [facility] Comment on above: Performed By: #### L [id number] #### [facility] ([facility]) [address] [place] [address] NURSNOTEon 01-16-2024 NURSNOTE Pt discharged via [facility] with all belongings and questions answered to pt's satisfaction. Normal [facility] NURSNOTE RN attempted to call report to [facility], no answer Normal [facility] BASIC METABOLIC PANELon 08-2 Anion gap [Moles/Vol] 13 mmol/L Normal 7-20 [facility] Comment on above: Performed By: #### L [id number] #### [facility] ([facility] [address] [place] [address] Calcium [Mass/Vol] 8.6 mg/dL Normal 8.6-10.3 [facility] Comment on above: Performed By: #### L [id number] #### [facility] ([facility]) [address] [place] [address] Chloride [Moles/Vol] 106 mmol/L Normal 98-107 [facility] Comment on above: Performed By: #### L [id number] #### [facility] ([facility]) [address] [place] [address] CO2 [Moles/Vol] 29 mmol/L Normal 21-31 [facility] Comment on above: Performed By: #### L [id number] #### [facility] ([facility]) [address] [place] [address] Creatinine [Mass/Vol] 0.98 mg/dL Normal 0.70-1.30 [facility] Comment on above: Performed By: #### L [id number] #### [facility] ([facility]) [address] [place] [address] GLOMERULAR FILTRATION RATE ML/MIN/1.73 SQ M.PREDICTED 78.4 mL/min/1.73m*2 Normal >60.[address] [facility] Comment on above: Result Comment: The [facility]???s estimated glomerular filtration rate (eGFR) will no longer include consideration of race in its calculation. The National Kidney Foundation???s eGFR Task Force developed new recommendations for the estimation of the glomerular filtration rate in the [place] They recommend immediate implementation of the new equation refit without the race variable in all laboratories because the calculation does not include race. In addition to not including race in the calculation and reporting, it included diversity in its development, and has acceptable performance characteristics and potential consequences that do not disproportionately affect any one group of individuals. Performed By: #### L [id number] #### [facility] ([facility]) [address] [place] [address] Glucose [Mass/Vol] 101 mg/dL High 70-100 [facility] Comment on above: Performed By: #### L [id number] #### [facility] ([facility]) [address] [place] [address] Potassium [Moles/Vol] 4.2 mmol/L Normal 3.5-5.1 [facility] Comment on above: Performed By: #### L [id number] #### [facility] ([facility]) [address] [place] [address] Sodium [Moles/Vol] 144 mmol/L Normal 136-145 [facility] Comment on above: Performed By: #### L [id number] #### [facility] ([facility]) [address] [place] [address] Urea nitrogen [Mass/Vol] 25 mg/dL Normal 7-[address] [facility] Comment on above: Performed By: #### L [id number] #### [facility] ([facility]) [address] [place] [address] UREA NITROGEN/CREATININE (MASS RATIO) IN SER/PLAS 25.5 Normal [facility] Comment on above: Performed By: #### L [id number] #### [facility] ([facility]) [address] [address] CBC WITH AUTO DIFFERENTIALon 01-15-2024 Basophils (Bld) [#/Vol] 0.05 10*3/uL Normal 0.00-0.[address] [facility] Comment on above: Performed By: #### L [id number] #### [facility] ([facility]) [address] [place] [address] Basophils/100 WBC (Bld) 0.6 % Normal 0.0-1.0 [facility] Comment on above: Performed By: #### L [id number] #### [facility] ([facility]) [address] [place] [address] Eosinophils (Bld) [#/Vol] 0.53 10*3/uL High 0.00-0.[address] [facility] Comment on above: Performed By: #### L [id number] #### [facility] ([facility]) [address] [place] [address] Eosinophils/100 WBC (Bld) 6.7 % High 0.0-6.[address] [facility] Comment on above: Performed By: #### L [id number] #### [facility] ([facility]) [address] [place] [address] Erythrocyte distribution width (RBC) [Ratio] 14.9 % Normal 11.5-15.[address] [facility] Comment on above: Performed By: #### L [id number] #### [facility] ([facility]) [address] [place] [address] ERYTHROCYTE MEAN CORPUSCULAR HEMOGLOBIN CONCENTRATION (G/DL) BY AUTOMATED 31.3 g/dL Low 32.0-35.[address] [facility] Comment on above: Performed By: #### L [id number] #### [facility] ([facility]) [address] [place] [address] Hematocrit (Bld) [Volume fraction] 37.4 % Low 39.0-55.[address] [facility] Comment on above: Performed By: #### L [id number] #### [facility] ([facility]) [address] [place] [address] Hemoglobin (Bld) [Mass/Vol] 11.7 g/dL Low 13.0-17.[address] [facility] Comment on above: Performed By: #### L [id number] #### [facility] ([facility]) [address] [place] [address] Immature granulocytes (Bld) [#/Vol] 0.14 10*3/uL Normal 0.00-0.[address] [facility] Comment on above: Performed By: #### L [id number] #### [facility] [address] [address] Immature granulocytes/100 WBC (Bld) 1.8 % High 0.0-1.[address] [facility] Comment on above: Performed By: #### L [id number] #### [facility] ([facility]) [address] [place] [address] Lymphocytes (Bld) [#/Vol] 1.27 10*3/uL Normal 1.20-4.[address] [facility] Comment on above: Performed By: #### L [id number] #### [facility] ([facility]) [address] [address] Lymphocytes/100 WBC (Bld) 16.2 % Low 20.0-45.[address] [facility] Comment on above: Performed By: #### L [id number] #### [facility] ([facility]) [address] [address] MCH (RBC) [Entitic mass] 28.5 pg Normal 27.0-33.[address] [facility] Comment on above: Performed By: #### L [id number] #### [facility] ([facility]) [address] [place] [address] MCV (RBC) [Entitic vol] 91.0 fL Normal 82.0-98.0 U [facility] Comment on above: Performed By: #### L [id number] #### [facility] ([facility]) [address] [address] Monocytes (Bld) [#/Vol] 0.81 10*3/uL Normal 0.10-1.[address] [facility] Comment on above: Performed By: #### L [id number] #### [facility] ([facility]) [address] [place] [address] Monocytes/100 WBC (Bld) 10.3 % Normal 5.0-12.0 U [facility] Comment on above: Performed By: #### L [id number] #### [facility] ([facility]) [address] [place] [address] Neutrophils (Bld) [#/Vol] 5.06 10*3/uL Normal 1.60-7.[address] [facility] Comment on above: Performed By: #### L [id number] #### [facility] ([facility]) [address] [place] [address] Neutrophils/100 WBC (Bld) 64.4 % Normal 40.0-72.[address] [facility] Comment on above: Performed By: #### L [id number] #### [facility] ([facility]) [address] [place] [address] NRBC (PER 100 WBCS) BY AUTOMATED COUNT 0.0 % Normal [address] [facility] Comment on above: Performed By: #### L [id number] #### [facility] ([facility]) [address] [place] [address] PLATELETS (10*3/UL) IN BLOOD AUTOMATED COUNT 156 10*3/uL Normal 150-[address] [facility] Comment on above: Performed By: #### L [id number] #### [facility] ([facility]) [address] [place] [address] RBC (Bld) [#/Vol] 4.11 10*6/uL Low 4.20-5.70 [facility] Comment on above: Performed By: #### L [id number] #### [facility] ([facility]) [address] [place] [address] WBC (Bld) [#/Vol] 7.86 10*3/uL Normal 4.00-10.60 [facility] Comment on above: Performed By: #### L [id number] #### [facility] ([facility]) [address] [place] [address] NURSNOTEon 01-15-2024 NURSNOTE Nurse noted pt oxyge n saturation dipping below 92% due to patient sleeping soundly with mouth open. Nurse attempted to apply supplemental oxygen after explaining to patient via communication board. Pt began yelling at nurse and swatting the oxygen tubing away from his face. Will continue to monitor. [facility] 30on 01-14-2024 30 The patient is Moderately Stable - Low risk of patient condition declining or worsening The patient's goals for the shift include alycia The clinical goals for the shift include stable vitals, safety Over the shift, the patient did not make progress toward the following goals. Barriers to progression include noncompliance to arm restrictions for pacer. Recommendations to address these barriers include continuing to encourage sling. [facility] 30 Daily Case Managemen t Update Multidisciplinary rounds have been completed. Barriers to Discharge: Pending medical clearance for discharge. Discharge plan is to [facility] when medically ready. Diet: Dietary Orders (From admission, onward) Start Ordered 01/14/24 1115 Special Kitchen Request Once Comments: Hot roast beef sandwich with mashed potatoes and gravy 01/14/24 1114 01/14/24 0735 Special Kitchen Request Once Comments: Generated dysphagia 3 tray 01/14/24 0734 01/13/24 1051 Dysphagia III Soft Diet Chopped Meat Diet effective now Question Answer Comment Room Service? Yes Other Restrictions: Chopped Meat 01/13/24 1050 01/12/24 0837 Special Kitchen Request Once Comments: General tray please 01/12/24 0837 Physician Expected Discharge Date: Discharge Delays: PT Six Click Score: 8 OT Six Click Score: 14 PT Recommendations: custodial facility placement OT Recommendations: custodial facility placement New Consults: Therapy Orders (From admission, onward) Start Ordered 01/11/24 1348 PT eval and treat Until therapy completed Question: Reason for PT? Answer: eval and treat 01/11/24 1347 01/11/24 1348 OT eval and treat Until therapy completed Question: Reason for OT? Answer: eval and treat 01/11/24 1347 [facility] 30 The patient is Moderately Stable - Low risk of patient condition declining or worsening The patient's goals for the shift include ALYCIA The clinical goals for the shift include VSS, safety Problem: Pain Goal: STG-Pt will verbalize pain management techniques Outcome: Progressing Problem: Neurosensory - Adult Goal: Achieves stable or improved neurological status Recent Flowsheet Documentation Taken 01/13/20241941 by Miguel Menjivar RN Achieves stable or improved neurological status: Assess for and report changes in neurological status Normal [facility] BASIC METABOLIC PANELon 08-2 Anion gap [Moles/Vol] 12 mmol/L Normal 7-20 [facility] Comment on above: Performed By: #### L [id number] #### [facility] ([facility]) [address] [place] [address] Calcium [Mass/Vol] 8.5 mg/dL Low 8.6-10.3 [facility] Comment on above: Performed By: #### L [id number] #### [facility] ([facility]) [address] [place] [address] Chloride [Moles/Vol] 104 mmol/L Normal 98-107 [facility] Comment on above: Performed By: #### L [id number] #### [facility] ([facility]) [address] [place] [address] CO2 [Moles/Vol] 30 mmol/L Normal 21-31 [facility] Comment on above: Performed By: #### L [id number] #### [facility] ([facility]) [address] [place] [address] Creatinine [Mass/Vol] 0.93 mg/dL Normal 0.70-1.30 [facility] Comment on above: Performed By: #### L [id number] #### [facility] ([facility]) [address] [place] [address] GLOMERULAR FILTRATION RATE ML/MIN/1.73 SQ M.PREDICTED 83.5 mL/min/1.73m*2 Normal >60.[address] [facility] Comment on above: Result Comment: The [facility]???s estimated glomerular filtration rate (eGFR) will no longer include consideration of race in its calculation. The National Kidney Foundation???s eGFR Task Force developed new recommendations for the estimation of the glomerular filtration rate in the [place] They recommend immediate implementation of the new equation refit without the race variable in all laboratories because the calculation does not include race. In addition to not including race in the calculation and reporting, it included diversity in its development, and has acceptable performance characteristics and potential consequences that do not disproportionately affect any one group of individuals. Performed By: #### L [id number] #### [facility] ([facility]) [address] [place] [address] Glucose [Mass/Vol] 96 mg/dL Normal 70-100 [facility] Comment on above: Performed By: #### L [id number] #### [facility] ([facility]) [address] [place] [address] Potassium [Moles/Vol] 4.5 mmol/L Normal 3.5-5.1 [facility] Comment on above: Performed By: #### L [id number] #### [facility] ([facility]) [address] [place] [address] Sodium [Moles/Vol] 141 mmol/L Normal 136-145 [facility] Comment on above: Performed By: #### L [id number] #### [facility] ([facility]) [address] [place] [address] Urea nitrogen [Mass/Vol] 20 mg/dL Normal 7-[address] [facility] Comment on above: Performed By: #### L [id number] #### [facility] ([facility]) [address] [place] [address] UREA NITROGEN/CREATININE (MASS RATIO) IN SER/PLAS 21.5 Normal [facility] Comment on above: Performed By: #### L [id number] #### [facility] ([facility]) [address] [place] [address] CBC WITH AUTO DIFFERENTIALon 01-14-2024 Basophils (Bld) [#/Vol] 0.03 10*3/uL Normal 0.00-0.[address] [facility] Comment on above: Performed By: #### L [id number] #### [facility] ([facility]) [address] [place] [address] Basophils/100 WBC (Bld) 0.4 % Normal 0.0-1.0 [facility] Comment on above: Performed By: #### L [id number] #### [facility] ([facility]) [address] [place] [address] Eosinophils (Bld) [#/Vol] 0.54 10*3/uL High 0.00-0.[address] [facility] Comment on above: Performed By: #### L [id number] #### [facility] [address] [place] [address] Eosinophils/100 WBC (Bld) 6.4 % High 0.0-6.[address] [facility] Comment on above: Performed By: #### L [id number] #### [facility] ([facility]) [address] [place] [address] Erythrocyte distribution width (RBC) [Ratio] 14.6 % Normal 11.5-15.[address] [facility] Comment on above: Performed By: #### L [id number] #### [facility] ([facility]) [address] [place] [address] ERYTHROCYTE MEAN CORPUSCULAR HEMOGLOBIN CONCENTRATION (G/DL) BY AUTOMATED 31.9 g/dL Low 32.0-35.[address] [facility] Comment on above: Performed By: #### L [id number] #### [facility] [address] [place] [address] Hematocrit (Bld) [Volume fraction] 38.6 % Low 39.0-55.[address] [facility] Comment on above: Performed By: #### L [id number] #### [facility] ([facility] [address] [place] [address] Hemoglobin (Bld) [Mass/Vol] 12.3 g/dL Low 13.0-17.[address] [facility] Comment on above: Performed By: #### L [id number] #### [facility] ([facility]) [address] [place] [address] Immature granulocytes (Bld) [#/Vol] 0.16 10*3/uL Normal 0.00-0.[address] [facility] Comment on above: Performed By: #### L [id number] #### [facility] ([facility]) [address] [place] [address] Immature granulocytes/100 WBC (Bld) 1.9 % High 0.0-1.[address] [facility] Comment on above: Performed By: #### L [id number] #### [facility] ([facility]) [address] [place] [address] Lymphocytes (Bld) [#/Vol] 1.07 10*3/uL Low 1.20-4.[address] [facility] Comment on above: Performed By: #### L [id number] #### [facility] ([facility]) [address] [place] [address] Lymphocytes/100 WBC (Bld) 12.7 % Low 20.0-45.[address] [facility] Comment on above: Performed By: #### L [id number] #### [facility] ([facility]) [address] [place] [address] MCH (RBC) [Entitic mass] 28.5 pg Normal 27.0-33.[address] [facility] Comment on above: Performed By: #### L [id number] #### [facility] ([facility]) [address] [place] [address] MCV (RBC) [Entitic vol] 89.4 fL Normal 82.0-98.0 U [facility] Comment on above: Performed By: #### L [id number] #### [facility] ([facility]) [address] [place] [address] Monocytes (Bld) [#/Vol] 0.59 10*3/uL Normal 0.10-1.[address] [facility] Comment on above: Performed By: #### L [id number] #### [facility] ([facility]) [address] [place] [address] Monocytes/100 WBC (Bld) 7.0 % Normal 5.0-12.0 U [facility] Comment on above: Performed By: #### L [id number] #### [facility] ([facility]) [address] [place] [address] Neutrophils (Bld) [#/Vol] 6.01 10*3/uL Normal 1.60-7.[address] [facility] Comment on above: Performed By: #### L [id number] #### [facility] ([facility]) [address] [place] [address] Neutrophils/100 WBC (Bld) 71.6 % Normal 40.0-72.[address] [facility] Comment on above: Performed By: #### L [id number] #### [facility] ([facility]) [address] [place] [address] NRBC (PER 100 WBCS) BY AUTOMATED COUNT 0.0 % Normal [address] [facility] Comment on above: Performed By: #### L [id number] #### [facility] ([facility]) [address] [place] [address] PLATELETS (10*3/UL) IN BLOOD AUTOMATED COUNT 159 10*3/uL Normal 150-[address] [facility] Comment on above: Performed By: #### L [id number] #### [facility] ([facility]) [address] [place] [address] RBC (Bld) [#/Vol] 4.32 10*6/uL Normal 4.20-5.70 [facility] Comment on above: Performed By: #### L [id number] #### [facility] ([facility]) [address] [place] [address] WBC (Bld) [#/Vol] 8.40 10*3/uL Normal 4.00-10.60 [facility] Comment on above: Performed By: #### L [id number] #### [facility] ([facility]) [address] [place] [address] HEMOGLOBIN AND HEMATOCRIT, B Shayla 01-14-2024 Hematocrit (Bld) [Volume fraction] 42.2 % Normal 39.0-55.[address] [facility] Comment on above: Performed By: #### L [id number] ####[facility] ([facility])[address] [place] [address] Hemoglobin (Bld) [Mass/Vol] 13.1 g/dL Normal 13.0-17.[address] [facility] Comment on above: Performed By: #### L [id number] ####[facility] ([facility])[address] [facility] [address] POCT GLUCOSE METER UNSOLICIT ED RESULTSon 01-14-2024 Glucose [Mass/Vol] 111 mg/dL High 70-105 [facility] Comment on above: Order Comment: Waive d Testing in the ED is performed under the ED CLIA certificate #[id number]. Result Comment: gordy fry Performed By: #### L [id number] #### [facility] ([facility]) [address] [place] [address] Glucose [Mass/Vol] 151 mg/dL High 70-105 [facility] Comment on above: Order Comment: Waive d Testing in the ED is performed under the ED CLIA certificate #[id number]. Result Comment: mhil [email or web address] Performed By: #### L [id number] #### [facility] ([facility]) [address] [place] [address] Glucose [Mass/Vol] 205 mg/dL High 70-105 [facility] Comment on above: Order Comment: Waive d Testing in the ED is performed under the ED CLIA certificate #[id number]. Result Comment: mhil [id number] Performed By: #### L [id number] #### [facility] ([facility]) [address] [place] [address] 30on 01-13-2024 30 Problem: Pain Goal: STG-Pt will verbalize pain management techniques 01/13/20241812 by Matt Wilson RN Outcome: Progressing 01/13/20241812 by Matt Wilson RN Outcome: Progressing The patient is Moderately Stable - Low risk of patient condition declining or worsening The patient's goals for the shift include ALYCIA The clinical goals for the shift include Vss, Safety Patient having some shoulder pain with movement. Patient wheezy duoneb and lasix received. Normal [facility] 30 Daily Case Managemen t Update Multidisciplinary rounds have been completed. Barriers to Discharge: Pending clinical course and improvement in clinical condition. Pending precert to [facility]; started today. Diet: Dietary Orders (From admission, onward) Start Ordered 01/13/24 1051 Dysphagia III Soft Diet Chopped Meat Diet effective now Question Answer Comment Room Service? Yes Other Restrictions: Chopped Meat 01/13/24 1050 01/12/24 0837 Special Kitchen Request Once Comments: General tray please 01/12/24 0837 Physician Expected Discharge Date: 01/14/2024 Discharge Delays: PT Six Click Score: 11 OT Six Click Score: 14 PT Recommendations: custodial facility placement OT Recommendations: custodial facility placement New Consults: Therapy Orders (From admission, onward) Start Ordered 01/11/24 1348 PT eval and treat Until therapy completed Question: Reason for PT? Answer: eval and treat 01/11/24 1347 01/11/24 1348 OT eval and treat Until therapy completed Question: Reason for OT? Answer: eval and treat 01/11/[address] [facility] 30 The patient is Moderately Stable - Low risk of patient condition declining or worsening The patient's goals for the shift include ALYCIA The clinical goals for the shift include VSS, safety Problem: Respiratory - Adult Goal: Achieves optimal ventilation and oxygenation Recent Flowsheet Documentation Taken 01/12/20241999 by Karissa Lancaster RN Achieves optimal ventilation and oxygenation: Assess for changes in respiratory status Assess for changes in mentation and behavior Position to facilitate oxygenation and minimize respiratory effort Oxygen supplementation based on oxygen saturation or arterial blood gases Assess the need for suctioning and aspirate as needed Assess and instruct to report shortness of breath or any respiratory difficulty Respiratory therapy support as indicated Normal [facility] BASIC METABOLIC PANELon 12-23 Anion gap [Moles/Vol] 9 mmol/L Normal 7- [facility] Comment on above: Performed By: #### L [id number] #### [facility]) [address] [place] [address] Calcium [Mass/Vol] 8.3 mg/dL Low 8.6-10.3 [facility] Comment on above: Performed By: #### L [id number] #### [facility] ([facility]) [address] [place] [address] Chloride [Moles/Vol] 105 mmol/L Normal 98-107 [facility] Comment on above: Performed By: #### L [id number] #### [facility] ([facility]) [address] [place] [address] CO2 [Moles/Vol] 29 mmol/L Normal 21-31 [facility] Comment on above: Performed By: #### L [id number] #### [facility] ([facility]) [address] [place] [address] Creatinine [Mass/Vol] 0.74 mg/dL Normal 0.70-1.30 [facility] Comment on above: Performed By: #### L [id number] #### [facility] ([facility]) [address] [place] [address] GLOMERULAR FILTRATION RATE ML/MIN/1.73 SQ M.PREDICTED 92.2 mL/min/1.73m*2 Normal >60.[address] [facility] Comment on above: Result Comment: The [facility]???s estimated glomerular filtration rate (eGFR) will no longer include consideration of race in its calculation. The National Kidney Foundation???s eGFR Task Force developed new recommendations for the estimation of the glomerular filtration rate in the [place] They recommend immediate implementation of the new equation refit without the race variable in all laboratories because the calculation does not include race. In addition to not including race in the calculation and reporting, it included diversity in its development, and has acceptable performance characteristics and potential consequences that do not disproportionately affect any one group of individuals. Performed By: #### L [id number] #### [facility] ([facility]) [address] [place] [address] Glucose [Mass/Vol] 106 mg/dL High 70-100 [facility] Comment on above: Performed By: #### L [id number] #### [facility] [address] [address] Potassium [Moles/Vol] 4.3 mmol/L Normal 3.5-5.1 [facility] Comment on above: Performed By: #### L [id number] #### [facility] ([facility]) [address] [place] [address] Sodium [Moles/Vol] 139 mmol/L Normal 136-145 [facility] Comment on above: Performed By: #### L [id number] #### [facility] ([facility]) [address] [place] [address] Urea nitrogen [Mass/Vol] 16 mg/dL Normal 7-[address] [facility] Comment on above: Performed By: #### L [id number] #### [facility] ([facility]) [address] [place] [address] UREA NITROGEN/CREATININE (MASS RATIO) IN SER/PLAS 21.6 Normal [facility] Comment on above: Performed By: #### L [id number] #### [facility] ([facility]) [address] [place] [address] CBC WITH AUTO DIFFERENTIALon 01-13-2024 Basophils (Bld) [#/Vol] 0.04 10*3/uL Normal 0.00-0.[address] [facility] Comment on above: Performed By: #### L [id number] #### [facility] ([facility]) [address] [place] [address] Basophils/100 WBC (Bld) 0.5 % Normal 0.0-1.0 U [facility] Comment on above: Performed By: #### L [id number] #### [facility] ([facility]) [address] [place] [address] Eosinophils (Bld) [#/Vol] 0.45 10*3/uL Normal 0.00-0.[address] [facility] Comment on above: Performed By: #### L [id number] #### [facility] ([facility] [address] [facility] [place] [address] Eosinophils/100 WBC (Bld) 5.9 % Normal 0.0-6.[address] [facility] Comment on above: Performed By: #### L [id number] #### [facility] ([facility]) [address] [place] [address] Erythrocyte distribution width (RBC) [Ratio] 14.6 % Normal 11.5-15.[address] [facility] Comment on above: Performed By: #### L [id number] #### [facility] ([facility]) [address] [place] [address] ERYTHROCYTE MEAN CORPUSCULAR HEMOGLOBIN CONCENTRATION (G/DL) BY AUTOMATED 31.9 g/dL Low 32.0-35.[address] [facility] Comment on above: Performed By: #### L [id number] #### [facility] [address] [place] [address] Hematocrit (Bld) [Volume fraction] 35.7 % Low 39.0-55.[address] [facility] Comment on above: Performed By: #### L [id number] #### [facility] ([facility]) [address] [address] Hemoglobin (Bld) [Mass/Vol] 11.4 g/dL Low 13.0-17.[address] [facility] Comment on above: Performed By: #### L [id number] #### [facility] ([facility]) [address] [address] Immature granulocytes (Bld) [#/Vol] 0.15 10*3/uL Normal 0.00-0.[address] [facility] Comment on above: Performed By: #### L [id number] #### [facility] ([facility]) [address] [address] Immature granulocytes/100 WBC (Bld) 2.0 % High 0.0-1.[address] [facility] Comment on above: Performed By: #### L [id number] #### [facility] ([facility]) [address] [place] [address] Lymphocytes (Bld) [#/Vol] 1.22 10*3/uL Normal 1.20-4.[address] [facility] Comment on above: Performed By: #### L [id number] #### [facility] ([facility]) [address] [place] [address] Lymphocytes/100 WBC (Bld) 16.1 % Low 20.0-45.[address] [facility] Comment on above: Performed By: #### L [id number] #### [facility] [address] [place] [address] MCH (RBC) [Entitic mass] 28.6 pg Normal 27.0-33.[address] [facility] Comment on above: Performed By: #### L [id number] #### [facility] [address] [place] [address] MCV (RBC) [Entitic vol] 89.5 fL Normal 82.0-98.0 U [facility] Comment on above: Performed By: #### L [id number] #### [facility] ([facility]) [address] [place] [address] Monocytes (Bld) [#/Vol] 0.83 10*3/uL Normal 0.10-1.[address] [facility] Comment on above: Performed By: #### L [id number] #### [facility] [address] [place] [address] Monocytes/100 WBC (Bld) 10.9 % Normal 5.0-12.0 U [facility] Comment on above: Performed By: #### L [id number] #### [facility] ([facility]) [address] [place] [address] Neutrophils (Bld) [#/Vol] 4.89 10*3/uL Normal 1.60-7.[address] [facility] Comment on above: Performed By: #### L [id number] #### [facility] ([facility]) [address] [place] [address] Neutrophils/100 WBC (Bld) 64.6 % Normal 40.0-72.[address] [facility] Comment on above: Performed By: #### L [id number] #### [facility] ([facility]) [address] [place] [address] NRBC (PER 100 WBCS) BY AUTOMATED COUNT 0.0 % Normal [address] [facility] Comment on above: Performed By: #### L [id number] #### [facility] ([facility]) [address] [place] [address] PLATELETS (10*3/UL) IN BLOOD AUTOMATED COUNT 152 10*3/uL Normal 150-[address] [facility] Comment on above: Performed By: #### L [id number] #### [facility] ([facility]) [address] [place] [address] RBC (Bld) [#/Vol] 3.99 10*6/uL Low 4.20-5.70 [facility] Comment on above: Performed By: #### L [id number] #### [facility] ([facility]) [address] [place] [address] WBC (Bld) [#/Vol] 7.58 10*3/uL Normal 4.00-10.60 [facility] Comment on above: Performed By: #### L [id number] #### [facility] ([facility]) [address] [place] [address] FERRITINon 01-13-2024 FERRITIN (NG/ML) IN SER/PLAS 53.0 ng/mL Normal 24.0-336.[address] [facility] Comment on above: Performed By: #### L [id number] #### [facility] ([facility]) [address] [place] [address] FOLATEon 01-13-2024 FOLATE (NG/ML) IN SER/PLAS 12.14 ng/mL Normal 6.6-[address] [facility] Comment on above: Performed By: #### L [id number] ####[facility] ([facility])[address] [place] [address] IRON AND TIBCon 01-13-2024 IRON (UG/DL) IN SER/PLAS 37 ug/dL Low 50-[address] [facility] Comment on above: Performed By: #### L [id number] #### [facility] [address] [place] [address] IRON BINDING CAPACITY (UG/DL) IN SER/PLAS 244 ug/dL Low 250-[address] [facility] Comment on above: Performed By: #### L [id number] #### [facility] ([facility]) [address] [facility] [place] [address] IRON BINDING CAPACITY.UNSATURATED (UG/DL) IN SER/PLAS 207.0 ug/dL Normal 155.0-355.[address] [facility] Comment on above: Performed By: #### L [id number] #### [facility] ([facility]) [address] [place] [address] IRON SATURATION (%) IN SER/PLAS 15 % Low 20-[address] [facility] Comment on above: Performed By: #### L [id number] #### [facility] ([facility]) [address] [place] [address] PHOSPHORUSon 01-13-2024 Magnesium [Mass/Vol] 2.7 mg/dL Normal 2.5-5.0 [facility] Comment on above: Performed By: #### L [id number] #### [facility] ([facility]) [address] [place] [address] POCT GLUCOSE METER UNSOLICIT ED RESULTSon 01-13-2024 Glucose [Mass/Vol] 107 mg/dL High 70-105 [facility] Comment on above: Order Comment: Waive d Testing in the ED is performed under the ED CLIA certificate #[id number]. Result Comment: [email or web address] Performed By: #### L [id number] #### [facility] ([facility] [address] [place] [address] Glucose [Mass/Vol] 115 mg/dL High 70-105 [facility] Comment on above: Order Comment: Waive d Testing in the ED is performed under the ED CLIA certificate #[id number]. Result Comment: [email or web address] Performed By: #### L [id number] #### [facility] ([facility]) [address] [facility] [address] Glucose [Mass/Vol] 164 mg/dL High 70-105 [facility] Comment on above: Order Comment: Waive d Testing in the ED is performed under the ED CLIA certificate #[id number]. Result Comment: [email or web address] Performed By: #### L [id number] #### [facility] ([facility]) [address] [facility] [address] Glucose [Mass/Vol] 116 mg/dL High 70-105 [facility] Comment on above: Order Comment: Waive d Testing in the ED is performed under the ED CLIA certificate #[id number]. Result Comment: [email or web address] Performed By: #### L [id number] #### [facility] ([facility]) [address] [place] [address] VITAMIN B12on 01-13-2024 Cobalamin (Vitamin B12) [Mass/Vol] 179 pg/mL Low 180-[address] [facility] Comment on above: Result Comment: REFE RENCE RANGES: 180-914 pg/mL Normal 145-179 pg/mL Indeterminate <145 pg/mL Deficient Performed By: #### L [id number] #### [facility] ([facility]) [address] [place] [address] 30on 01-12-2024 30 Daily Case Managemen t Update Multidisciplinary rounds have been completed. Barriers to Discharge: 01/11- still waiting on pt ot, awaiting SW to confirm return to [place], needs to talk to daughter, aware. Ct head negative for any acute issues. [place] wants to skill, will need precert. cb Diet: Dietary Orders (From admission, onward) Start Ordered 01/12/24 0838 Regular Diet Diet effective now Question: Room Service? Answer: No 01/12/24 0837 01/12/24 0837 Special Kitchen Request Once Comments: General tray please 01/12/24 0837 Physician Expected Discharge Date: 01/12/2024 Discharge Delays: PT Six Click Score: 12 OT Six Click Score: 14 PT Recommendations: OT Recommendations: custodial facility placement New Consults: Consult Orders (From admission, onward) Start Ordered 01/11/24 1218 Inpatient consult to Trauma Surgery Once Specialty: Trauma Surgery Provider: (Not yet assigned) Question Answer Comment [employer] TRAUMA SURGERY TEAM Reason for Consult? 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 he wear hearing device, has trouble hearing with hearing aids Level of Consultation Consultation and Management 01/11/24 1219 Therapy Orders (From admission, onward) Start Ordered 01/11/24 1348 PT eval and treat Until therapy completed Question: Reason for PT? Answer: eval and treat 01/11/24 1347 01/11/24 1348 OT eval and treat Until therapy completed Question: Reason for OT? Answer: eval and treat 01/11/[address] [facility] CBCon 01-12-2024 Erythrocyte distribution width (RBC) [Ratio] 14.6 % Normal 11.5-15.[address] [facility] Comment on above: Performed By: #### L [id number] #### [facility] ([facility]) [address] [place] [address] ERYTHROCYTE MEAN CORPUSCULAR HEMOGLOBIN CONCENTRATION (G/DL) BY AUTOMATED 32.2 g/dL Normal 32.0-35.[address] [facility] Comment on above: Performed By: #### L [id number] #### [facility] ([facility]) [address] [place] [address] Hematocrit (Bld) [Volume fraction] 34.5 % Low 39.0-55.[address] [facility] Comment on above: Performed By: #### L [id number] #### [facility] ([facility]) [address] [place] [address] Hemoglobin (Bld) [Mass/Vol] 11.1 g/dL Low 13.0-17.[address] [facility] Comment on above: Performed By: #### L [id number] #### [facility] ([facility]) [address] [place] [address] MCH (RBC) [Entitic mass] 28.8 pg Normal 27.0-33.[address] [facility] Comment on above: Performed By: #### L [id number] #### [facility] ([facility]) [address] [place] [address] MCV (RBC) [Entitic vol] 89.4 fL Normal 82.0-98.0 U [facility] Comment on above: Performed By: #### L [id number] #### [facility] ([facility]) [address] [place] [address] PLATELETS (10*3/UL) IN BLOOD AUTOMATED COUNT 146 10*3/uL Low 150-[address] [facility] Comment on above: Performed By: #### L [id number] #### [facility] ([facility]) [address] [place] [address] RBC (Bld) [#/Vol] 3.86 10*6/uL Low 4.20-5.70 [facility] Comment on above: Performed By: #### L [id number] #### [facility] ([facility]) [address] [place] [address] WBC (Bld) [#/Vol] 8.81 10*3/uL Normal 4.00-10.60 [facility] Comment on above: Performed By: #### L [id number] #### [facility] ([facility]) [address] [place] [address] COMPREHENSIVE METABOLIC PANE Michael 01-12-2024 Albumin [Mass/Vol] 3.1 g/dL Low 3.5-5.7 [facility] Comment on above: Performed By: #### L [id number] ####[facility] ([facility] [place] [address] ALP [Catalytic activity/Vol] 33 U/L Low 34-[address] [facility] Comment on above: Performed By: #### L [id number] ####[facility] ([facility])[address] [place] [address] ALT [Catalytic activity/Vol] 17 U/L Normal 7-[address] [facility] Comment on above: Performed By: #### L [id number] ####[facility] ([facility])[address] [place] [address] Anion gap [Moles/Vol] 11 mmol/L Normal 7-20 [facility] Comment on above: Performed By: #### L [id number] ####[facility] ([facility])[address] [place] [address] AST [Catalytic activity/Vol] 16 U/L Normal 13-[address] [facility] Comment on above: Performed By: #### L [id number] ####[facility] ([facility])[address] [place] [address] Bilirubin [Mass/Vol] 0.4 mg/dL Normal 0.3-1.0 [facility] Comment on above: Performed By: #### L [id number] ####[facility] ([facility] [place] [address] Calcium [Mass/Vol] 8.4 mg/dL Low 8.6-10.3 [facility] Comment on above: Performed By: #### L [id number] ####[facility] ([facility])[address] [place] [address] Chloride [Moles/Vol] 103 mmol/L Normal 98-107 [facility] Comment on above: Performed By: #### L [id number] ####[facility] ([facility])[address] [place] [address] CO2 [Moles/Vol] 28 mmol/L Normal 21-31 [facility] Comment on above: Performed By: #### L [id number] ####[facility] ([facility])[address] [place] [address] Creatinine [Mass/Vol] 0.84 mg/dL Normal 0.70-1.30 [facility] Comment on above: Performed By: #### L [id number] ####[facility] ([facility])[address] [place] [address] GLOMERULAR FILTRATION RATE ML/MIN/1.73 SQ M.PREDICTED 88.7 mL/min/1.73m*2 Normal >60.[address] [facility] Comment on above: Result Comment: The [facility]???s estimated glomerular filtration rate (eGFR) will no longer include consideration of race in its calculation. The National Kidney Foundation???s eGFR Task Force developed new recommendations for the estimation of the glomerular filtration rate in the [place] They recommend immediate implementation of the new equation refit without the race variable in all laboratories because the calculation does not include race. In addition to not including race in the calculation and reporting, it included diversity in its development, and has acceptable performance characteristics and potential consequences that do not disproportionately affect any one group of individuals. Performed By: #### L [id number] ####[facility] ([facility])[address] [place] [address] Glucose [Mass/Vol] 85 mg/dL Normal 70-100 [facility] Comment on above: Performed By: #### L [id number] ####[facility] ([facility])[address] [place] [address] Potassium [Moles/Vol] 4.0 mmol/L Normal 3.5-5.1 [facility] Comment on above: Performed By: #### L [id number] ####[facility] ([facility])[address] [place] [address] Protein [Mass/Vol] 5.4 g/dL Low 6.0-8.3 [facility] Comment on above: Performed By: #### L [id number] ####[facility] ([facility])[address] [place] [address] Sodium [Moles/Vol] 138 mmol/L Normal 136-145 [facility] Comment on above: Performed By: #### L [id number] ####[facility] ([facility])[address] [place] [address] Urea nitrogen [Mass/Vol] 19 mg/dL Normal 7-[address] [facility] Comment on above: Performed By: #### L [id number] ####[facility] ([facility])[address] [place] [address] UREA NITROGEN/CREATININE (MASS RATIO) IN SER/PLAS 22.6 Normal [facility] Comment on above: Performed By: #### L [id number] ####[facility] ([facility])[address] [place] [address] CONSULTon 01-12-2024 CONSULT Reason For Consult: s/p trauma has racoon eyes, s/p CTH showed: Soft tissue density within the bilateral middle ear cavities as well as external auditory canals with nonvisualization of the ossicular chains. he wear hearing device, has trouble hearing with hearing aids Referring Physician: MICU Fellow Date and time of consultation: 01/11/24 1219 Chief Complaint: Trauma Fall Mechanism of Injury 78 y.o. male who presented to [facility] on 01/09/24 as a transfer from [facility] for symptomatic bradycardia with complete heart block. Patient with a history of dementia, difficulty answering questions thoroughly because of dementia and hearing loss. Majority of history obtained via chart review. Patient with multiple episodes of presyncope reported prior to admission. No clearly documented falls. On arrival to [facility] he was noted to have a heart rate in the 30s. He was transferred to [facility] for Cardiology evaluation and underwent PPM placement on 01/10/24. Trauma was consulted on 01/11/24 after it was noted that the patient developed raccoon eyes , concerning for head trauma. CT scan of the head was obtained and showed no intracranial abnormalities, however soft tissue densities noted in the bilateral middle ear cavities and external auditory canals, possible cholesteatoma. Patient states he is comfortable and denies any headache, dizziness, vision changes, or pain anywhere. Patient is on ASA. Pt seen this afternoon on 3AB resting comfortably in bed. Thorough ROS difficult to obtain due to patient's hearing difficulty however patient reports he is feeling just fine. No pain Review of Systems: General: Denies fever, chills. Head/Neck: Denies headache, blurred vision. Respiratory: Denies cough, shortness of breath. Cardiovascular: Denies chest pain. Gastrointestinal: Denies abdominal pain. Musculoskeletal: Denies pain. Neurological: Denies dizziness, numbness, tingling or weakness to the extremities. History Past Medical History: has a past medical history of COPD (chronic obstructive pulmonary disease) ([facility]), Seizure ([facility]), and Sleep apnea. Past Surgical History: has no past surgical history on file. Allergies: Patient has no known allergies. Home Medications: Medications Prior to Admission Medication Sig Dispense Refill Last Dose acetaminophen (Tylenol) 325 mg tablet Take 650 mg by mouth every 6 (six) hours if needed for mild pain (1-3 pain score) or fever greater than or equal to 38 degrees Celsius. albuterol 2.5 mg /3 mL (0.083 %) nebulizer solution Take 2.5 mg by nebulization every 6 (six) hours if needed for wheezing or shortness of breath. aspirin 81 mg EC tablet Take 81 mg by mouth in the morning. cetirizine (ZyrTEC) 10 mg tablet Take 10 mg by mouth if needed each day for allergies. cholecalciferol (Vitamin D-3) 50 MCG (2000 UT) tablet Take 2,000 Units by mouth in the morning. citalopram (CeleXA) 20 mg tablet Take 20 mg by mouth in the morning. furosemide (Lasix) 40 mg tablet Take 40 mg by mouth in the morning. haloperidol (Haldol) 1 mg tablet Take 1 mg by mouth two times daily. lovastatin (Altoprev) 40 mg 24 hr tablet Take 40 mg by mouth at bedtime. Do not crush, chew, or split. metFORMIN XR (Glucophage-XR) 500 mg 24 hr tablet Take 1,000 mg by mouth with breakfast and with evening meal. Do not crush, chew, or split. nystatin (Mycostatin) 100,000 unit/gram powder Apply 1 Application topically three times daily. spironolactone (Aldactone) 25 mg tablet Take 25 mg by mouth in the morning. tamsulosin (Flomax) 0.4 mg 24 hr capsule Take 0.4 mg by mouth two times daily. valproic acid (Depakene) 250 mg capsule Take 500 mg by mouth three times daily. Social History: reports that he has quit smoking. His smoking use included cigarettes. He does not have any smokeless tobacco history on file. No history on file for alcohol use and drug use. Family History: No family history on file. Objective Vitals: BP: (100-141)/(41-56) 128/53 (01/11 1200) Temp: [36.2 ???C (97.2 ???F)-36.7 ???C (98.1 ???F)] 36.5 ???C (97.7 ???F) (01/11 1200) Temp Source: Temporal (01/11 1200) Heart Rate: [61-82] 75 (01/11 1210) Resp: [15-29] 20 (01/11 1210) SpO2: [93 %-98 %] 94 % (01/11 121) Height: -- Weight: -- Candelario Coma Scale Score: 14 No intake or output data in the 24 hours ending 01/12/24 1300 Physical Exam: General: Awake, Alert, No acute distress. Extremely hard of hearing. Head: Normocephalic. Raccoon eyes bilaterally. Mid Face Stable. Visualization of right TM obscured by impacted cerumen. Visualization of left TM partially obscured by impacted cerumen, however there is a small opening near the center, possible TM rupture. Unable to fully visualize. Nares Patent Bilaterally, No Epistaxis. Mouth Clear Of Foreign Bodies, No Lacerations Or Abrasions, Teeth Intact. No fluid or blood draining from the ear, nose or mouth. Eyes: PERRL, EOMI. Neurologic: (more content not included)... Normal [facility] CT CERVICAL SPINE WO IV CONT Annmarie 01-12-2024 CT CERVICAL SPINE WO IV CONTRAST HISTORY: A 78-year-old male with the history of the trauma and bilateral black eyes. Fracture is suspected. EXAM/TECHNIQUE: Multidetector spiral CT scan of cervical spine is performed. Multiplanar reconstruction images are obtained. COMPARISON: None available. FINDINGS: There is no evidence of fracture through the cervical vertebrae. The posterior elements are intact. No bony fragments are seen in the spinal canal. Sagittal and axial images demonstrate normal vertebral heights. There is no evidence of compression fractures or malalignment. The odontoid process is intact. There are diffuse disc degenerative changes in the cervical spine. Facet arthropathy seen at multiple levels. There is subtle loss of normal cervical lordosis without evidence of spondylolisthesis. No significant prevertebral soft tissue abnormality is identified. There are vascular calcifications. IMPRESSION: *No evidence of fracture or acute bony pathology. *Diffuse disc degenerative disease in the cervical spine and facet arthropathy at a few levels. *Reversal of the normal cervical lordosis without evidence of spondylolisthesis. All CT scans at this facility use dose modulation, iterative reconstruction, and/or weight based dosing when appropriate to reduce radiation dose to as low as reasonably achievable. Electronically signed: Kan Nicole. Not Anabella Invalid Interpretation Code [facility] Comment on above: Order Comment: Traum a CT HEAD WO IV CONTRASTon CT HEAD WO IV CONTRAST HISTORY: A 78-yea r-old male with the history of the trauma. Bilateral black eyes. Abnormal CT scan of the brain with opacification of the ears EXAM/TECHNIQUE: Multidetector spiral CT scan of brain is obtained. Multiplanar reconstruction images are reformatted. COMPARISON: Comparison is made with the CT scan of the brain of 01/10/2024. FINDINGS: There is generalized cortical atrophy. Ventricular system is normal in size and configuration. There are hypodense regions in the deep white matter supratentorially consistent with small vessels ischemic change. There is no evidence of intracranial hemorrhage or acute pathology. The cerebellum and brainstem are unremarkable.No mass effect, midline shift of the structures or extra-axial fluid collections are noted. The calvarium is intact. There are intracranial vascular calcifications. Calvarium is intact. Visualized paranasal sinuses are clear. There is a soft tissue opacity in the both external ears. There is a nonvisualization of the old ossicular chain apart from small portion in the left ureter. There is a obliteration of the middle ears. There is a non pneumatization scanned at of the mastoid air cells. No discrete fractures are seen at the skull base. The visualized paranasal sinuses and mastoid air cells are clear. IMPRESSION: *No evidence of intracranial hemorrhage or acute pathology. *Small vessels ischemic change in the deep white matter supratentorially and generalized cortical atrophy. *Soft tissue opacities in the both external ears with nonvisualization of the ossicles. Non pneumatization of the mastoid air cells. Changes are likely to be from bilateral cholesteatoma/chronic infection and/or surgeries. Correlation with the clinical history is and surgical history is recommended. *No discrete fractures are identified. All CT scans at this facility use dose modulation, iterative reconstruction, and/or weight based dosing when appropriate to reduce radiation dose to as low as reasonably achievable. Electronically signed: Kan Nicole. Not Anabella Invalid Interpretation Code [facility] MAGNESIUMon 01-12-2024 Magnesium [Mass/Vol] 2.0 mg/dL Normal 1.9-2.7 [facility] Comment on above: Performed By: #### L [id number] ####[facility] ([facility])[address] [place] [address] PHOSPHORUSon 01-12-2024 Magnesium [Mass/Vol] 2.1 mg/dL Low 2.5-5.0 [facility] Comment on above: Performed By: #### L [id number] #### [facility] ([facility]) [address] [place] [address] POCT GLUCOSE METER UNSOLICIT ED RESULTSon 01-12-2024 Glucose [Mass/Vol] 153 mg/dL High 70-105 [facility] Comment on above: Order Comment: Waive d Testing in the ED is performed under the ED CLIA certificate #[id number]. Result Comment: [email or web address] Performed By: #### L [id number] #### [facility] ([facility]) [address] [place] [address] Glucose [Mass/Vol] 134 mg/dL High 70-105 [facility] Comment on above: Order Comment: Waive d Testing in the ED is performed under the ED CLIA certificate #[id number]. Result Comment: [email or web address] Performed By: #### L [id number] #### [facility] ([facility] [address] [place] [address] Glucose [Mass/Vol] 210 mg/dL High 70-105 [facility] Comment on above: Order Comment: Waive d Testing in the ED is performed under the ED CLIA certificate #[id number]. Result Comment: [email or web address] Performed By: #### L [id number] #### [facility] ([facility]) [address] [place] [address] Glucose [Mass/Vol] 103 mg/dL Normal 70-[address] [facility] Comment on above: Order Comment: Waive d Testing in the ED is performed under the ED CLIA certificate #[id number]. Result Comment: [email or web address] Performed By: #### L [id number] #### [facility] ([facility]) [address] [place] [address] 30on 01-11-2024 30 Daily Case Managemen t Update Multidisciplinary rounds have been completed. Barriers to Discharge: 01/10- s/p [place] DC-PPM. No overnight events. Mentation appears improved/back to baseline. PT OT ordered, from [facility]? Not sure if returning. On RA, would anticipate discharge in next couple dats. cb Diet: Dietary Orders (From admission, onward) Start Ordered 01/11/24 0931 Special Kitchen Request Once Comments: General breakfast tray please! 01/11/24 0931 01/11/24 0718 Regular Diet Heart Healthy/HTN, CABG,Stroke, (2gNA, low fat, low cholesterol) Diet effective now Question Answer Comment Room Service? Yes Fat restriction: Heart Healthy/HTN, CABG,Stroke, (2gNA, low fat, low cholesterol) 01/11/24 0718 Physician Expected Discharge Date: 01/12/2024 Discharge Delays: PT Six Click Score: 12 OT Six Click Score: PT Recommendations: OT Recommendations: New Consults: Consult Orders (From admission, onward) Start Ordered 01/11/24 1218 Inpatient consult to Trauma Surgery Once Specialty: Trauma Surgery Provider: (Not yet assigned) Question Answer Comment [employer] TRAUMA SURGERY TEAM Reason for Consult? 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 he wear hearing device, has trouble hearing with hearing aids Level of Consultation Consultation and Management 01/11/24 1219 Therapy Orders (From admission, onward) Start Ordered 01/11/24 1348 PT eval and treat Until therapy completed Question: Reason for PT? Answer: eval and treat 01/11/24 1347 01/11/24 1348 OT eval and treat Until therapy completed Question: Reason for OT? Answer: eval and treat 01/11/[address] [facility] AMMONIAon 01-11-2024 AMMONIA (UMOL/L) IN PLASMA 41 umol/L Normal 18-[address] [facility] Comment on above: Performed By: #### L [id number] #### [facility] (BEAKER) [address] [place] [address] B-TYPE NATRIURETIC PEPTIDEon 01-11-2024 Natriuretic peptide B (Bld) [Mass/Vol] 1312 pg/mL High 0-[address] [facility] Comment on above: Performed By: #### L [id number] ####[facility] (BEAKER)[address] [place] [address] BASIC METABOLIC PANELon 12-23 Anion gap [Moles/Vol] 10 mmol/L Normal 7-20 [facility] Comment on above: Performed By: #### L [id number] ####[facility] (BEAKER)[address] [place] [address] Calcium [Mass/Vol] 8.3 mg/dL Low 8.6-10.3 [facility] Comment on above: Performed By: #### L [id number] ####[facility] (BEAKER)[address] [place] [address] Chloride [Moles/Vol] 104 mmol/L Normal 98-107 [facility] Comment on above: Performed By: #### L [id number] ####[facility] ([facility]ER)[address] [place] [address] CO2 [Moles/Vol] 26 mmol/L Normal 21-31 [facility] Comment on above: Performed By: #### L [id number] ####[facility] (BEAKER)[address] [place] [address] Creatinine [Mass/Vol] 0.84 mg/dL Normal 0.70-1.30 [facility] Comment on above: Performed By: #### L [id number] ####[facility] (BEAKER)[address] [place] [address] GLOMERULAR FILTRATION RATE ML/MIN/1.73 SQ M.PREDICTED 88.7 mL/min/1.73m*2 Normal >60.[address] [facility] Comment on above: Result Comment: The [facility]???s estimated glomerular filtration rate (eGFR) will no longer include consideration of race in its calculation. The National Kidney Foundation???s eGFR Task Force developed new recommendations for the estimation of the glomerular filtration rate in the [place] They recommend immediate implementation of the new equation refit without the race variable in all laboratories because the calculation does not include race. In addition to not including race in the calculation and reporting, it included diversity in its development, and has acceptable performance characteristics and potential consequences that do not disproportionately affect any one group of individuals. Performed By: #### L [id number] ####[facility] ([facility])[address] [place] [address] Glucose [Mass/Vol] 118 mg/dL High 70-100 [facility] Comment on above: Performed By: #### L [id number] ####[facility] ([facility])[address] [place] [address] Potassium [Moles/Vol] 4.0 mmol/L Normal 3.5-5.1 [facility] Comment on above: Performed By: #### L [id number] ####[facility] ([facility])[address] [place] [address] Sodium [Moles/Vol] 136 mmol/L Normal 136-145 [facility] Comment on above: Performed By: #### L [id number] ####[facility] ([facility])[address] [place] [address] Urea nitrogen [Mass/Vol] 29 mg/dL High 7-[address] [facility] Comment on above: Performed By: #### L [id number] ####[facility] ([facility])[address] [place] [address] UREA NITROGEN/CREATININE (MASS RATIO) IN SER/PLAS 34.5 Normal [facility] Comment on above: Performed By: #### L [id number] ####[facility] (BEAKER)[address] [place] [address] CBC WITH AUTO DIFFERENTIALon 01-11-2024 Basophils (Bld) [#/Vol] 0.04 10*3/uL Normal 0.00-0.[address] [facility] Comment on above: Performed By: #### L [id number] #### [facility] [address] [place] [address] Basophils/100 WBC (Bld) 0.5 % Normal 0.0-1.0 [facility] Comment on above: Performed By: #### L [id number] #### [facility] ([facility]) [address] [place] [address] Eosinophils (Bld) [#/Vol] 0.57 10*3/uL High 0.00-0.[address] [facility] Comment on above: Performed By: #### L [id number] #### [facility] ([facility]) [address] [place] [address] Eosinophils/100 WBC (Bld) 7.7 % High 0.0-6.[address] [facility] Comment on above: Performed By: #### L [id number] #### [facility] ([facility]) [address] [place] [address] Erythrocyte distribution width (RBC) [Ratio] 14.6 % Normal 11.5-15.[address] [facility] Comment on above: Performed By: #### L [id number] #### [facility] ([facility] [address] [place] [address] ERYTHROCYTE MEAN CORPUSCULAR HEMOGLOBIN CONCENTRATION (G/DL) BY AUTOMATED 32.9 g/dL Normal 32.0-35.[address] [facility] Comment on above: Performed By: #### L [id number] #### [facility] (BEAKER) [address] [place] [address] Hematocrit (Bld) [Volume fraction] 34.0 % Low 39.0-55.[address] [facility] Comment on above: Performed By: #### L [id number] #### [facility] (BEAKER) [address] [place] [address] Hemoglobin (Bld) [Mass/Vol] 11.2 g/dL Low 13.0-17.[address] [facility] Comment on above: Performed By: #### L [id number] #### [facility] ([facility]) [address] [place] [address] Immature granulocytes (Bld) [#/Vol] 0.06 10*3/uL Normal 0.00-0.[address] [facility] Comment on above: Performed By: #### L [id number] #### [facility] ([facility]) [address] [place] [address] Immature granulocytes/100 WBC (Bld) 0.8 % Normal 0.0-1.[address] [facility] Comment on above: Performed By: #### L [id number] #### [facility] ([facility]) [address] [place] [address] Lymphocytes (Bld) [#/Vol] 0.80 10*3/uL Low 1.20-4.[address] [facility] Comment on above: Performed By: #### L [id number] #### [facility] ([facility]) [address] [place] [address] Lymphocytes/100 WBC (Bld) 10.8 % Low 20.0-45.[address] [facility] Comment on above: Performed By: #### L [id number] #### [facility] ([facility]) [address] [place] [address] MCH (RBC) [Entitic mass] 28.5 pg Normal 27.0-33.[address] [facility] Comment on above: Performed By: #### L [id number] #### [facility] ([facility] [address] [place] [address] MCV (RBC) [Entitic vol] 86.5 fL Normal 82.0-98.0 U [facility] Comment on above: Performed By: #### L [id number] #### [facility] (BEAKER) [address] [place] [address] Monocytes (Bld) [#/Vol] 0.70 10*3/uL Normal 0.10-1.[address] [facility] Comment on above: Performed By: #### L [id number] #### [facility] (BEAKER) [address] [place] [address] Monocytes/100 WBC (Bld) 9.4 % Normal 5.0-12.0 [facility] Comment on above: Performed By: #### L [id number] #### [facility] (BEAKER) [address] [place] [address] Neutrophils (Bld) [#/Vol] 5.27 10*3/uL Normal 1.60-7.[address] [facility] Comment on above: Performed By: #### L [id number] #### [facility] (BEAKER) [address] [place] [address] Neutrophils/100 WBC (Bld) 70.8 % Normal 40.0-72.[address] [facility] Comment on above: Performed By: #### L [id number] #### [facility] ([facility] [address] [place] [address] NRBC (PER 100 WBCS) BY AUTOMATED COUNT 0.0 % Normal [address] [facility] Comment on above: Performed By: #### L [id number] #### [facility] (BEAKER) [address] [place] [address] PLATELETS (10*3/UL) IN BLOOD AUTOMATED COUNT 155 10*3/uL Normal 150-[address] [facility] Comment on above: Performed By: #### L [id number] #### [facility] (BEAKER) [address] [place] [address] RBC (Bld) [#/Vol] 3.93 10*6/uL Low 4.20-5.70 [facility] Comment on above: Performed By: #### L [id number] #### [facility] (BEAKER) [address] [place] [address] WBC (Bld) [#/Vol] 7.44 10*3/uL Normal 4.00-10.60 [facility] Comment on above: Performed By: #### L [id number] #### [facility] ([facility]) [address] [place] [address] MAGNESIUMon 01-11-2024 Magnesium [Mass/Vol] 2.3 mg/dL Normal 1.9-2.7 [facility] Comment on above: Performed By: #### L [id number] #### [facility] ([facility]) [address] [place] [address] PHOSPHORUSon 01-11-2024 Magnesium [Mass/Vol] 2.0 mg/dL Low 2.5-5.0 [facility] Comment on above: Performed By: #### L [id number] ####[facility] ([facility])[address] [place] [address] POCT GLUCOSE METER UNSOLICIT ED RESULTSon 01-11-2024 Glucose [Mass/Vol] 151 mg/dL High 70-105 [facility] Comment on above: Order Comment: Waive d Testing in the ED is performed under the ED CLIA certificate #[id number]. Result Comment: rcar ran Performed By: #### L [id number] #### [facility] ([facility]) [address] [place] [address] Glucose [Mass/Vol] 157 mg/dL High 70-105 [facility] Comment on above: Order Comment: Waive d Testing in the ED is performed under the ED CLIA certificate #[id number]. Result Comment: [email or web address] Performed By: #### L [id number] ####[facility] ([facility])[address] [place] [address] Glucose [Mass/Vol] 150 mg/dL High 70-105 [facility] Comment on above: Order Comment: Waive d Testing in the ED is performed under the ED CLIA certificate #[id number]. Result Comment: rfog art Performed By: #### L [id number] ####[facility] (BEAKER)[address] [place] [address] Glucose [Mass/Vol] 127 mg/dL High 70-105 [facility] Comment on above: Order Comment: Waive d Testing in the ED is performed under the ED CLIA certificate #[id number]. Result Comment: pop [email or web address] Performed By: #### L [id number] #### [facility] (BEAKER) [address] [place] [address] PROCALCITONIN TESTon 024 PROCALCITONIN IN BLOOD 0.09 ng/mL Normal 0.00-0.10 [facility] Comment on above: Result Comment: Susp ected Lower Respiratory Tract Infection: 0.1-0.25 ng/mL - Low likelihood for bacterial infection;Antibiotics discouraged.* >0.25 ng/mL - Increased likelihood bacterial infection;Antibiotics encouraged. Suspected Sepsis: Strongly consider initiating antibiotics in all unstable patients. 0.1-0.5 ng/mL - Low likelihood for sepsis; Antibiotics discouraged.* >0.5 ng/mL - Increased likelihood sepsis; Antibiotics encouraged. >2.0 ng/mL - High risk of sepsis/septic shock; Antibiotics strongly encouraged. *Recommend retesting PCT within 6-12 hours if clinically indicated and initial PCT<0.5ng/mL Performed By: #### L [id number] #### [facility] (BEAKER) [address] [place] [address] 30on 01-10-2024 30 Daily Case Managemen t Update Multidisciplinary rounds have been completed. Barriers to Discharge: 01/09- patient came here from [facility] with a complete heart block. (Not sure where patient originally came from... NH vs home? Has dementia, dopamine and isoprterenol drips, plans for pacer today. Needs pt ot ? Not sure if from somewhere if needs PC to return. Sw aware. Had a recent fall, CT head today for raccoon eyes. cb Diet: Dietary Orders (From admission, onward) Start Ordered 01/10/24 0001 Diet NPO Diet effective midnight Question: Reason for NPO: Answer: Operation/Procedure 01/09/241918 Physician Expected Discharge Date: 01/12/2024 Discharge Delays: PT Six Click Score: 12 OT Six Click Score: PT Recommendations: OT Recommendations: New Consults: Normal [facility] Chapis 01-10-2024 ANES -- Attestation signed by Reno Welch MD at 01/10/2024 4:04 PM By using the attestations below, the signing clinician agrees that I have read and verify that the documentation has been personally reviewed by me and ensure that the documentation accurately reflects the encounter. GC: I personally saw this patient on the day of the encounter, performed the guajardo portion(s) of the service and participated in the management and confirm the resident's documentation. Please note there may be an additional personal documentation from me. Patient: Clyde Humphrey Procedure Information Date/Time: 01/10/24 1300 Procedure: Pacemaker DC new Location: [facility] RESISTANCE WELDER 1 EP / [facility] (Cath) Providers: Reno Welch MD Clinical information reviewed: Allergies Physical Exam Airway Mallampati: III Neck ROM: full Cardiovascular Rhythm: regular Dental Pulmonary - normal exam Abdominal - normal exam Abdomen: soft Anesthesia Plan ASA 3 other (Conscious sedation) intravenous induction Anesthetic plan and risks discussed with patient (Daughter- Amy). Use of blood products discussed with patient who consented to blood products. Blood Products Consent Comment: Verbal consent with Jessica Parks Plan discussed with attending and fellow. Additional Equipment Requests Normal [facility] BASIC METABOLIC PANELon 12-22 Anion gap [Moles/Vol] 15 mmol/L Normal 7-20 [facility] Comment on above: Performed By: #### L [id number] #### [facility] (BEAKER) [address] [facility] [place] [address] Calcium [Mass/Vol] 8.4 mg/dL Low 8.6-10.3 [facility] Comment on above: Performed By: #### L [id number] #### [facility] (BEAKER) [address] [place] [address] Chloride [Moles/Vol] 97 mmol/L Low 98-107 [facility] Comment on above: Performed By: #### L [id number] #### [facility] (BEAKER) [address] [place] [address] CO2 [Moles/Vol] 21 mmol/L Normal 21-31 [facility] Comment on above: Performed By: #### L [id number] #### [facility] (BEAKER) [address] [place] [address] Creatinine [Mass/Vol] 1.12 mg/dL Normal 0.70-1.30 [facility] Comment on above: Performed By: #### L [id number] #### [facility] (BEAKER) [address] [place] [address] GLOMERULAR FILTRATION RATE ML/MIN/1.73 SQ M.PREDICTED 66.8 mL/min/1.73m*2 Normal >60.[address] [facility] Comment on above: Result Comment: The [facility]???s estimated glomerular filtration rate (eGFR) will no longer include consideration of race in its calculation. The National Kidney Foundation???s eGFR Task Force developed new recommendations for the estimation of the glomerular filtration rate in the [place] They recommend immediate implementation of the new equation refit without the race variable in all laboratories because the calculation does not include race. In addition to not including race in the calculation and reporting, it included diversity in its development, and has acceptable performance characteristics and potential consequences that do not disproportionately affect any one group of individuals. Performed By: #### L [id number] #### [facility] ([facility]) [address] [place] [address] Glucose [Mass/Vol] 212 mg/dL High 70-100 [facility] Comment on above: Performed By: #### L [id number] #### [facility] ([facility]) [address] [place] [address] Potassium [Moles/Vol] 3.9 mmol/L Normal 3.5-5.1 [facility] Comment on above: Performed By: #### L [id number] #### [facility] ([facility]) [address] [place] [address] Sodium [Moles/Vol] 129 mmol/L Low 136-145 [facility] Comment on above: Performed By: #### L [id number] #### [facility] ([facility]) [address] [place] [address] Urea nitrogen [Mass/Vol] 56 mg/dL High 7-[address] [facility] Comment on above: Performed By: #### L [id number] #### [facility] ([facility]) [address] [place] [address] UREA NITROGEN/CREATININE (MASS RATIO) IN SER/PLAS 50.0 Normal [facility] Comment on above: Performed By: #### L [id number] #### [facility] ([facility]) [address] [place] [address] CBC WITH AUTO DIFFERENTIALon 01-10-2024 Basophils (Bld) [#/Vol] 0.05 10*3/uL Normal 0.00-0.[address] [facility] Comment on above: Performed By: #### L [id number] #### [facility] (BEAKER) [address] [place] [address] Basophils/100 WBC (Bld) 0.5 % Normal 0.0-1.0 [facility] Comment on above: Performed By: #### L [id number] #### [facility] (BEAKER) [address] [place] [address] Eosinophils (Bld) [#/Vol] 0.24 10*3/uL Normal 0.00-0.[address] [facility] Comment on above: Performed By: #### L [id number] #### [facility] (BEAKER) [address] [place] [address] Eosinophils/100 WBC (Bld) 2.6 % Normal 0.0-6.[address] [facility] Comment on above: Performed By: #### L [id number] #### [facility] (BEAKER) [address] [place] [address] Erythrocyte distribution width (RBC) [Ratio] 14.7 % Normal 11.5-15.[address] [facility] Comment on above: Performed By: #### L [id number] #### [facility] (BEAKER) [address] [place] [address] ERYTHROCYTE MEAN CORPUSCULAR HEMOGLOBIN CONCENTRATION (G/DL) BY AUTOMATED 32.4 g/dL Normal 32.0-35.[address] [facility] Comment on above: Performed By: #### L [id number] #### [facility] (BEAKER) [address] [place] [address] Hematocrit (Bld) [Volume fraction] 35.2 % Low 39.0-55.[address] [facility] Comment on above: Performed By: #### L [id number] #### [facility] (BEAKER) [address] [place] [address] Hemoglobin (Bld) [Mass/Vol] 11.4 g/dL Low 13.0-17.[address] [facility] Comment on above: Performed By: #### L [id number] #### [facility] ([facility] [address] [place] [address] Immature granulocytes (Bld) [#/Vol] 0.13 10*3/uL Normal 0.00-0.[address] [facility] Comment on above: Performed By: #### L [id number] #### [facility] ([facility] [address] [place] [address] Immature granulocytes/100 WBC (Bld) 1.4 % High 0.0-1.[address] [facility] Comment on above: Performed By: #### L [id number] #### [facility] ([facility] [address] [place] [address] Lymphocytes (Bld) [#/Vol] 1.41 10*3/uL Normal 1.20-4.[address] [facility] Comment on above: Performed By: #### L [id number] #### [facility] ([facility]) [address] [place] [address] Lymphocytes/100 WBC (Bld) 15.1 % Low 20.0-45.[address] [facility] Comment on above: Performed By: #### L [id number] #### [facility] (BEAKER) [address] [place] [address] MCH (RBC) [Entitic mass] 28.5 pg Normal 27.0-33.[address] [facility] Comment on above: Performed By: #### L [id number] #### [facility] (BEAKER) [address] [place] [address] MCV (RBC) [Entitic vol] 88.0 fL Normal 82.0-98.0 U [facility] Comment on above: Performed By: #### L [id number] #### [facility] (BEAKER) [address] [place] [address] Monocytes (Bld) [#/Vol] 1.04 10*3/uL High 0.10-1.[address] [facility] Comment on above: Performed By: #### L [id number] #### [facility] ([facility] [address] [address] Monocytes/100 WBC (Bld) 11.1 % Normal 5.0-12.0 U [facility] Comment on above: Performed By: #### L [id number] #### [facility] ([facility]) [address] [place] [address] Neutrophils (Bld) [#/Vol] 6.49 10*3/uL Normal 1.60-7.[address] [facility] Comment on above: Performed By: #### L [id number] #### [facility] ([facility]) [address] [place] [address] Neutrophils/100 WBC (Bld) 69.3 % Normal 40.0-72.[address] [facility] Comment on above: Performed By: #### L [id number] #### [facility] ([facility]) [address] [place] [address] NRBC (PER 100 WBCS) BY AUTOMATED COUNT 0.0 % Normal [address] [facility] Comment on above: Performed By: #### L [id number] #### [facility] ([facility]) [address] [place] [address] PLATELETS (10*3/UL) IN BLOOD AUTOMATED COUNT 168 10*3/uL Normal 150-[address] [facility] Comment on above: Performed By: #### L [id number] #### [facility] ([facility]) [address] [place] [address] RBC (Bld) [#/Vol] 4.00 10*6/uL Low 4.20-5.70 [facility] Comment on above: Performed By: #### L [id number] #### [facility] ([facility] [address] [place] [address] WBC (Bld) [#/Vol] 9.36 10*3/uL Normal 4.00-10.60 [facility] Comment on above: Performed By: #### L [id number] #### [facility]) [address] [place] [address] CT HEAD WO IV CONTRASTon CT HEAD WO IV CONTRAST EXAM:CT HEAD WO I V CONTRAST INDICATION: Ataxia, head trauma racoon eyes, s/p fall racoon eyes, s/p fall COMPARISON: None TECHNIQUE: Standard noncontrast axial CT sections through the head. All CT scans at this facility use dose modulation, iterative reconstruction, and/or weight based dosing when appropriate to reduce radiation dose to as low as reasonably achievable. FINDINGS: Brain Parenchyma: No acute hemorrhage, cerebral edema, or acute cortical infarction. No mass effect, or midline shift. Patchy hypoattenuation in bilateral periventricular and subcortical white matter, nonspecific, most commonly reflecting chronic small vessel ischemic changes. Generalized parenchymal atrophy. Ventricles and Sulci: Mildly prominent ventricles and sulci secondary to parenchymal atrophy. Extra-Axial Spaces: No extra-axial fluid collection. Orbits, paranasal sinuses, midface structures, mastoid air cells: Orbits are only partially included in the [id number]. Mild mucosal thickening of the paranasal sinuses. Soft tissue attenuation within the bilateral external auditory canals and middle ear cavities. The ossicular chain is not visualized bilaterally. Hypoaeration of the mastoid air cells. Cranium and extracranial soft tissues: No appreciable calvarial fractures. Mild soft tissue thickening along the left. Midline frontal scalp IMPRESSION: No acute or subacute intracranial abnormalities. Soft tissue density within the bilateral middle ear cavities as well as external auditory canals with nonvisualization of the ossicular chains. Correlate with outside priors to assess for stability of the after mentioned finding. This is nonspecific and may be sequelae of prior surgery or related to destructive process such as cholesteatoma Electronically signed: Jayro Castro MD. 9 Invalid Interpretation Code [facility] HPon 01-10-2024 HP -- Attestation signed by Reno Welch MD at 01/12/2024 8:50 AM By using the attestations below, the signing clinician agrees that I have read and verify that the documentation has been personally reviewed by me and ensure that the documentation accurately reflects the encounter. GC: I personally saw this patient on the day of the encounter, performed the guajardo portion(s) of the service and participated in the management and confirm the resident's documentation. Please note there may be an additional personal documentation from me. H&P reviewed. The patient was examined and there are no changes to the H&P.plan for PPM today Normal [facility] MAGNESIUMon 01-10-2024 Magnesium [Mass/Vol] 1.7 mg/dL Low 1.9-2.7 [facility] Comment on above: Performed By: #### L [id number] #### [facility] ([facility]) [address] [place] [address] MRSA/MSSA DNA NASALon 2023 MRSA DNA Positive Abnormal Negative [facility] Comment on above: Order Comment: Testi ng methodology is an automated qualitative in vitro diagnostic test for the directdetection and differentiation of Staphylococcus aureus (SA) DNA and methicillin-resistant Staphylococcus aureus (MRSA) DNA from nasal swabs in patients at risk for nasal colonization. The test utilizes real-time polymerase chain reaction (PCR) for the amplification of MRSA/SA DNA and fluorogenic target-specific hybridization probes for the detection of the amplified DNA. A negative result does not preclude nasal colonization. Performed By: #### L [id number] #### [facility] ([facility]) [address] [place] [address] MSSA DNA Negative Normal Negative [facility] Comment on above: Order Comment: Testi ng methodology is an automated qualitative in vitro diagnostic test for the directdetection and differentiation of Staphylococcus aureus (SA) DNA and methicillin-resistant Staphylococcus aureus (MRSA) DNA from nasal swabs in patients at risk for nasal colonization. The test utilizes real-time polymerase chain reaction (PCR) for the amplification of MRSA/SA DNA and fluorogenic target-specific hybridization probes for the detection of the amplified DNA. A negative result does not preclude nasal colonization. Performed By: #### L [id number] #### [facility] ([facility]) [address] [place] [address] PHOSPHORUSon 01-10-2024 Magnesium [Mass/Vol] 2.0 mg/dL Low 2.5-5.0 [facility] Comment on above: Performed By: #### L [id number] #### [facility] ([facility]) [address] [place] [address] POCT GLUCOSE METER UNSOLICIT ED RESULTSon 01-10-2024 Glucose [Mass/Vol] 109 mg/dL High 70-105 [facility] Comment on above: Order Comment: Waive d Testing in the ED is performed under the ED CLIA certificate #[id number]. Result Comment: [email or web address] Performed By: #### L [id number] ####[facility] ([facility])[address] [place] [address] Glucose [Mass/Vol] 172 mg/dL High 70-105 [facility] Comment on above: Order Comment: Waive d Testing in the ED is performed under the ED CLIA certificate #[id number]. Result Comment: [email or web address] Performed By: #### L [id number] #### [facility] ([facility]) [address] [place] [address] Glucose [Mass/Vol] 250 mg/dL High 70-105 [facility] Comment on above: Order Comment: Waive d Testing in the ED is performed under the ED CLIA certificate #[id number]. Result Comment: [email or web address] Performed By: #### L [id number] ####[facility] ([facility])[address] [place] [address] Glucose [Mass/Vol] 241 mg/dL High 70-105 [facility] Comment on above: Order Comment: Waive d Testing in the ED is performed under the ED CLIA certificate #[id number]. Result Comment: [email or web address] Performed By: #### L [id number] ####[facility] ([facility])[address] [place] [address] Glucose [Mass/Vol] 227 mg/dL High 70-105 [facility] Comment on above: Order Comment: Waive d Testing in the ED is performed under the ED CLIA certificate #[id number]. Result Comment: [email or web address] Performed By: #### L [id number] #### [facility] ([facility]) [address] [place] [address] URINALYSISon 01-10-2024 BILIRUBIN, TOTAL PRESENCE IN URINE Negative Normal Negative [facility] Comment on above: Order Comment: Micro scopics not performed on urines with negative chemical reactions unless requested on original order. Performed By: #### L [id number] ####[facility] ([facility])[address] [place] [address] Clarity (U) Clear Normal Clear [facility] Comment on above: Order Comment: Micro scopics not performed on urines with negative chemical reactions unless requested on original order. Performed By: #### L [id number] ####[facility] ([facility])[address] [place] [address] Color (U) Straw Abnormal Yellow [facility] Comment on above: Order Comment: Micro scopics not performed on urines with negative chemical reactions unless requested on original order. Performed By: #### L [id number] ####[facility] ([facility])[address] [place] [address] Glucose (U) [Mass/Vol] Negative Normal Negative [facility]: Order Comment: Micro scopics not performed on urines with negative chemical reactions unless requested on original order. Performed By: #### L [id number] ####[facility] ([facility])[address] [place] [address] HEMOGLOBIN PRESENCE IN URINE Negative Normal Negative [facility] Comment on above: Order Comment: Micro scopics not performed on urines with negative chemical reactions unless requested on original order. Performed By: #### L [id number] ####[facility] ([facility])[address] [place] [address] Ketones Ql (U) Trace Abnormal Negative [facility] Comment on above: Order Comment: Micro scopics not performed on urines with negative chemical reactions unless requested on original order. Performed By: #### L [id number] ####[facility] ([facility])[address] [place] [address] LEUKOCYTE ESTERASE PRESENCE IN URINE BY TEST STRIP Negative Normal Negative [facility] Comment on above: Order Comment: Micro scopics not performed on urines with negative chemical reactions unless requested on original order. Performed By: #### L [id number] ####[facility] ([facility])[address] [place] [address] NITRITE PRESENCE IN URINE Negative Normal Negative [facility] Comment on above: Order Comment: Micro scopics not performed on urines with negative chemical reactions unless requested on original order. Performed By: #### L [id number] ####[facility] ([facility])[address] [place] [address] pH (U) 7.0 [pH] Normal 5.0-8.[address] [facility] Comment on above: Order Comment: Micro scopics not performed on urines with negative chemical reactions unless requested on original order. Performed By: #### L [id number] ####[facility] ([facility])[address] [place] [address] Protein (U) [Mass/Vol] Negative Normal Negative [facility] Comment on above: Order Comment: Micro scopics not performed on urines with negative chemical reactions unless requested on original order. Performed By: #### L [id number] ####[facility] ([facility])[address] [place] [address] Specific gravity (U) [Rel density] 1.006 Low 1.015-1.[address] [facility] Comment on above: Order Comment: Micro scopics not performed on urines with negative chemical reactions unless requested on original order. Performed By: #### L [id number] ####[facility] ([facility])[address] [place] [address] 30on 01-09-2024 30 The patient is Moderately Stable - Low risk of patient condition declining or worsening The patient's goals for the shift include The clinical goals for the shift include Over the shift, the patient did not make progress toward the following goals. Normal [facility] APTTon 01-09-2024 ACTIVATED PARTIAL THROMBOPLASTIN TIME IN PPP BY COAGULATION ASSAY 25.9 Seconds Normal 25.0-35.0 [facility] Comment on above: Result Comment: Clin ical significance of the APTT is questionable in the presence of heparin. Performed By: #### L [id number] ####[facility] ([facility])[address] [place] [address] BASIC METABOLIC PANELon 12-22 Anion gap [Moles/Vol] 12 mmol/L Normal 7-20 [facility] Comment on above: Performed By: #### L [id number] #### [facility] ([facility]) [address] [place] [address] Calcium [Mass/Vol] 8.9 mg/dL Normal 8.6-10.3 [facility] Comment on above: Performed By: #### L [id number] #### [facility] ([facility]) [address] [place] [address] Chloride [Moles/Vol] 101 mmol/L Normal 98-107 [facility] Comment on above: Performed By: #### L [id number] #### [facility] ([facility]) [address] [place] [address] CO2 [Moles/Vol] 27 mmol/L Normal 21-31 [facility] Comment on above: Performed By: #### L [id number] #### [facility] ([facility]) [address] [place] [address] Creatinine [Mass/Vol] 1.33 mg/dL High 0.70-1.30 [facility] Comment on above: Performed By: #### L [id number] #### [facility] ([facility]) [address] [place] [address] GLOMERULAR FILTRATION RATE ML/MIN/1.73 SQ M.PREDICTED 54.4 mL/min/1.73m*2 Low >60.[address] [facility] Comment on above: Result Comment: The [facility]???s estimated glomerular filtration rate (eGFR) will no longer include consideration of race in its calculation. The National Kid[employer] Foundation???s eGFR Task Force developed new recommendations for the estimation of the glomerular filtration rate in the [place] They recommend immediate implementation of the new equation refit without the race variable in all laboratories because the calculation does not include race. In addition to not including race in the calculation and reporting, it included diversity in its development, and has acceptable performance characteristics and potential consequences that do not disproportionately affect any one group of individuals. Performed By: #### L [id number] #### [facility] ([facility]) [address] [place] [address] Glucose [Mass/Vol] 181 mg/dL High 70-100 [facility] Comment on above: Performed By: #### L [id number] #### [facility] ([facility]) [address] [place] [address] Potassium [Moles/Vol] 4.3 mmol/L Normal 3.5-5.1 [facility] Comment on above: Performed By: #### L [id number] #### [facility] ([facility]) [address] [place] [address] Sodium [Moles/Vol] 136 mmol/L Normal 136-145 [facility] Comment on above: Performed By: #### L [id number] #### [facility] ([facility]) [address] [place] [address] Urea nitrogen [Mass/Vol] 73 mg/dL High 7-[address] [facility] Comment on above: Performed By: #### L [id number] #### [facility] [address] [place] [address] UREA NITROGEN/CREATININE (MASS RATIO) IN SER/PLAS 54.9 Normal [facility] Comment on above: Performed By: #### L [id number] #### [facility] ([facility] [address] [place] [address] BLOOD CULTUREon 01-09-2024 Bacteria identified Cx Nom (Bld) No growth at 5 days Normal [facility] Comment on above: Performed By: #### L [id number] ####[facility] ([facility])[address] [place] [address] Order Comment: From a different site than #1. Performed By: #### L [id number] #### [facility] ([facility]) [address] [place] [address] CBC WITH AUTO DIFFERENTIALon 01-09-2024 Basophils (Bld) [#/Vol] 0.03 10*3/uL Normal 0.00-0.[address] [facility] Comment on above: Performed By: #### L [id number] #### [facility] ([facility] [address] [place] [address] Basophils/100 WBC (Bld) 0.2 % Normal 0.0-1.0 U [facility] Comment on above: Performed By: #### L [id number] #### [facility] ([facility] [address] [place] [address] Eosinophils (Bld) [#/Vol] 0.30 10*3/uL Normal 0.00-0.[address] [facility] Comment on above: Performed By: #### L [id number] #### [facility] ([facility]) [address] [place] [address] Eosinophils/100 WBC (Bld) 2.5 % Normal 0.0-6.[address] [facility] Comment on above: Performed By: #### L [id number] #### [facility] ([facility]) [address] [place] [address] Erythrocyte distribution width (RBC) [Ratio] 14.5 % Normal 11.5-15.[address] [facility] Comment on above: Performed By: #### L [id number] #### [facility] ([facility]) [address] [place] [address] ERYTHROCYTE MEAN CORPUSCULAR HEMOGLOBIN CONCENTRATION (G/DL) BY AUTOMATED 33.1 g/dL Normal 32.0-35.[address] [facility] Comment on above: Performed By: #### L [id number] #### [facility] ([facility]) [address] [place] [address] Hematocrit (Bld) [Volume fraction] 39.6 % Normal 39.0-55.[address] [facility] Comment on above: Performed By: #### L [id number] #### [facility] ([facility]) [address] [place] [address] Hemoglobin (Bld) [Mass/Vol] 13.1 g/dL Normal 13.0-17.[address] [facility] Comment on above: Performed By: #### L [id number] #### [facility] ([facility]) [address] [place] [address] Immature granulocytes (Bld) [#/Vol] 0.10 10*3/uL Normal 0.00-0.[address] [facility] Comment on above: Performed By: #### L [id number] #### [facility] ([facility]) [address] [place] [address] Immature granulocytes/100 WBC (Bld) 0.8 % Normal 0.0-1.[address] [facility] Comment on above: Performed By: #### L [id number] #### [facility] ([facility]) [address] [place] [address] Lymphocytes (Bld) [#/Vol] 1.37 10*3/uL Normal 1.20-4.[address] [facility] Comment on above: Performed By: #### L [id number] #### [facility] ([facility]) [address] [place] [address] Lymphocytes/100 WBC (Bld) 11.4 % Low 20.0-45.[address] [facility] Comment on above: Performed By: #### L [id number] #### [facility] ([facility]) [address] [place] [address] MCH (RBC) [Entitic mass] 29.0 pg Normal 27.0-33.[address] [facility] Comment on above: Performed By: #### L [id number] #### [facility] ([facility]) [address] [place] [address] MCV (RBC) [Entitic vol] 87.6 fL Normal 82.0-98.0 U [facility] Comment on above: Performed By: #### L [id number] #### [facility] ([facility]) [address] [place] [address] Monocytes (Bld) [#/Vol] 0.86 10*3/uL Normal 0.10-1.[address] [facility] Comment on above: Performed By: #### L [id number] #### [facility] ([facility]) [address] [place] [address] Monocytes/100 WBC (Bld) 7.1 % Normal 5.0-12.0 U [facility] Comment on above: Performed By: #### L [id number] #### [facility] ([facility]) [address] [place] [address] Neutrophils (Bld) [#/Vol] 9.41 10*3/uL High 1.60-7.[address] [facility] Comment on above: Performed By: #### L [id number] #### [facility] [address] [place] [address] Neutrophils/100 WBC (Bld) 78.0 % High 40.0-72.[address] [facility] Comment on above: Performed By: #### L [id number] #### [facility] ([facility] [address] [place] [address] NRBC (PER 100 WBCS) BY AUTOMATED COUNT 0.0 % Normal [address] [facility] Comment on above: Performed By: #### L [id number] #### [facility] ([facility]) [address] [place] [address] PLATELETS (10*3/UL) IN BLOOD AUTOMATED COUNT 235 10*3/uL Normal 150-[address] [facility] Comment on above: Performed By: #### L [id number] #### [facility] ([facility]) [address] [place] [address] RBC (Bld) [#/Vol] 4.52 10*6/uL Normal 4.20-5.70 [facility] Comment on above: Performed By: #### L [id number] #### [facility] ([facility]) [address] [place] [address] WBC (Bld) [#/Vol] 12.07 10*3/uL High 4.00-10.60 [facility] Comment on above: Performed By: #### L [id number] #### [facility] ([facility]) [address] [place] [address] CONSULTon 01-09-2024 CONSULT -- Attestation signed by Jermaine Valenzuela MD at 01/09/2024 12:37 PM By using the attestations below, I agree that I have read and verify that the documentation has been personally reviewed by me and ensure that the documentation accurately reflects the encounter. GC: I personally saw this patient on the day of the encounter, performed the guajardo portions of the service and participated in the management and treatment plan of the patient. I reviewed and confirm the documentation by the Cardiovascular Fellow Dr Simi Bgogs. Please note there may be an additional personal documentation from me. 78-year-old man who is transferred from the [facility] for complete heart block. [facility] when the nurses noted severe bradycardia. His EKG shows complete heart block with a junctional escape rhythm with a previously known right bundle branch pattern. He does not give symptoms of angina. He is not in volume overload. We started him on intravenous dopamine and Isuprel. His heart rate has improved from 30 bpm to 49 bpm. He has been maintaining adequate blood pressure and is awake and alert. I discussed with Dr. 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 We will check an echocardiogram prior to the pacemaker placement to assess ventricular function. He does have minimal elevation of troponin but in the absence of ischemic symptoms the value of coronary angiography at this time is questionable. Jermaine Valenzuela MD Cardiology Consult Note Reason for Consult: bradycardia HPI: Clyde Humphrey is a 78 y.o. male with past medical history significant for dementia has been transferred from [facility] due to high degree AV block. The patient is unable to answer questions appropriately due to his dementia so history was only taken by the signout received from [place]. The patient was noted to have multiple episodes of presyncope over the last few days and today his heart rate was noted to be in 30s upon their initial evaluation. EKG showed a complete A-V dissociation. When he arrived to [facility], his HR was in low 30s. Dopamine was increased to 10 and started on Isuprel which improved heart rate to mid to high 40s. Patient remained hemodynamically stable. Cardiology ROS: Negative except as mentioned. Past Medical History He has a past medical history of COPD (chronic obstructive pulmonary disease) ([facility]), Seizure ([facility]), and Sleep apnea. Surgical History He has no past surgical history on file. Social History He reports that he has quit smoking. His smoking use included cigarettes. He does not have any smokeless tobacco history on file. No history on file for alcohol use and drug use. Family History No family history on file. Allergies Patient has no known allergies. Medications Current Outpatient Medications Medication Instructions acetaminophen (TYLENOL) 650 mg, oral, Every 6 hours PRN albuterol 2.5 mg, nebulization, Every 6 hours PRN aspirin 81 mg, oral, Daily cetirizine (ZYRTEC) 10 mg, oral, Daily PRN cholecalciferol (VITAMIN D-3) 2,000 Units, oral, Daily citalopram (CELEXA) 20 mg, oral, Daily furosemide (LASIX) 40 mg, oral, Daily haloperidol (HALDOL) 1 mg, oral, 2 times daily lovastatin (ALTOPREV) 40 mg, oral, Nightly, Do not crush, chew, or split. metFORMIN (OSM) (FORTAMET) 500 mg, oral, 2 times daily with meals, Do not crush, chew, or split. nystatin (Mycostatin) 100,000 unit/gram powder 1 Application, Topical, 3 times daily spironolactone (ALDACTONE) 25 mg, oral, Daily tamsulosin (FLOMAX) 0.4 mg, oral, Daily valproic acid (DEPAKENE) 500 mg, oral, 3 times daily Medications Prior to Admission Medication Sig Dispense Refill Last Dose acetaminophen (Tylenol) 325 mg tablet Take 650 mg by mouth every 6 (six) hours if needed for mild pain (1-3 pain score). albuterol 2.5 mg /3 mL (0.083 %) nebulizer solution Take 2.5 mg by nebulization every 6 (six) hours if needed for wheezing. aspirin 81 mg EC tablet Take 81 mg by mouth in the morning. cetirizine (ZyrTEC) 10 mg chewable tablet Chew 10 mg if needed each day for allergies. cholecalciferol (Vitamin D-3) 50 MCG (2000 UT) tablet Take 2,000 Units by mouth in the morning. citalopram (CeleXA) 20 mg tablet Take 20 mg by mouth in the morning. furosemide (Lasix) 40 mg tablet Take 40 mg by mouth in the morning. haloperidol (Haldol) 1 mg tablet Take 1 mg by mouth two times daily. lovastatin (Altoprev) 40 mg 24 hr tablet Take 40 mg by mouth at bedtime. Do (more content not included)... Normal [facility] HPon 01-09-2024 -- Attestation signed by Jermaine Valenzuela MD at 01/09/2024 12:37 PM By using the attestations below, I agree that I have read and verify that the documentation has been personally reviewed by me and ensure that the documentation accurately reflects the encounter. GC: I personally saw this patient on the day of the encounter, performed the guajardo portions of the service and participated in the management and treatment plan of the patient. I reviewed and confirm the documentation by the Cardiovascular Fellow Dr Simi Boggs. Please note there may be an additional personal documentation from me. 78-year-old man who is transferred from the [facility] for complete heart block. [facility] when the nurses noted severe bradycardia. His EKG shows complete heart block with a junctional escape rhythm with a previously known right bundle branch pattern. He does not give symptoms of angina. He is not in volume overload. We started him on intravenous dopamine and Isuprel. His heart rate has improved from 30 bpm to 49 bpm. He has been maintaining adequate blood pressure and is awake and alert. I discussed with Dr. 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 We will check an echocardiogram prior to the pacemaker placement to assess ventricular function. He does have minimal elevation of troponin but in the absence of ischemic symptoms the value of coronary angiography at this time is questionable. Jermaine Valenzuela MD Cardiology Consult Note Reason for Consult: bradycardia HPI: Clyde Humphrey is a 78 y.o. male with past medical history significant for dementia has been transferred from [facility] due to high degree AV block. The patient is unable to answer questions appropriately due to his dementia so history was only taken by the signout received from [place]. The patient was noted to have multiple episodes of presyncope over the last few days and today his heart rate was noted to be in 30s upon their initial evaluation. EKG showed a complete A-V dissociation. When he arrived to [facility] MICU, his HR was in low 30s. Dopamine was increased to 10 and started on Isuprel which improved heart rate to mid to high 40s. Patient remained hemodynamically stable. Cardiology ROS: Negative except as mentioned. Past Medical History He has a past medical history of COPD (chronic obstructive pulmonary disease) ([facility]), Seizure ([facility]), and Sleep apnea. Surgical History He has no past surgical history on file. Social History He reports that he has quit smoking. His smoking use included cigarettes. He does not have any smokeless tobacco history on file. No history on file for alcohol use and drug use. Family History No family history on file. Allergies Patient has no known allergies. Medications Current Outpatient Medications Medication Instructions acetaminophen (TYLENOL) 650 mg, oral, Every 6 hours PRN albuterol 2.5 mg, nebulization, Every 6 hours PRN aspirin 81 mg, oral, Daily cetirizine (ZYRTEC) 10 mg, oral, Daily PRN cholecalciferol (VITAMIN D-3) 2,000 Units, oral, Daily citalopram (CELEXA) 20 mg, oral, Daily furosemide (LASIX) 40 mg, oral, Daily haloperidol (HALDOL) 1 mg, oral, 2 times daily lovastatin (ALTOPREV) 40 mg, oral, Nightly, Do not crush, chew, or split. metFORMIN (OSM) (FORTAMET) 500 mg, oral, 2 times daily with meals, Do not crush, chew, or split. nystatin (Mycostatin) 100,000 unit/gram powder 1 Application, Topical, 3 times daily spironolactone (ALDACTONE) 25 mg, oral, Daily tamsulosin (FLOMAX) 0.4 mg, oral, Daily valproic acid (DEPAKENE) 500 mg, oral, 3 times daily Medications Prior to Admission Medication Sig Dispense Refill Last Dose acetaminophen (Tylenol) 325 mg tablet Take 650 mg by mouth every 6 (six) hours if needed for mild pain (1-3 pain score). albuterol 2.5 mg /3 mL (0.083 %) nebulizer solution Take 2.5 mg by nebulization every 6 (six) hours if needed for wheezing. aspirin 81 mg EC tablet Take 81 mg by mouth in the morning. cetirizine (ZyrTEC) 10 mg chewable tablet Chew 10 mg if needed each day for allergies. cholecalciferol (Vitamin D-3) 50 MCG (2000 UT) tablet Take 2,000 Units by mouth in the morning. citalopram (CeleXA) 20 mg tablet Take 20 mg by mouth in the morning. furosemide (Lasix) 40 mg tablet Take 40 mg by mouth in the morning. haloperidol (Haldol) 1 mg tablet Take 1 mg by mouth two times daily. lovastatin (Altoprev) 40 mg 24 hr tablet Take 40 mg by mouth at bedtime. Do (more content not included)... Normal [facility] HP -- Attestation signed by Donnie Cavazos MD at 01/09/2024 1:27 PM The patient was seen and examined with the fellow Dr. Suh. The fellow's note was reviewed and findings were confirmed. Assessment and plan discussed during rounds with the fellow and delineated below with the following additions/modification s. On dopamine and isoproterenol drips. The patient was evaluated by the cardiology service and it was decided to proceed with a dual-chamber pacemaker placement in a.m. an echocardiogram will be ordered prior to the pacemaker placement to assess ventricular function. The patient's case was discussed with the cardiology service and the medical management plan was coordinated. 35 min CCM excluding procedures times Adult ICU History & Physical Patient - Clyde Humphrey Age - 78 y.o. - 1945 [facility] # - [id number] Date of Admission - 01/09/2024 1:24 AM Chief Complaint Third-degree heart block History of Present Illness Clyde Humphrey is a 78-year-old gentleman with past medical history significant for dementia has been transferred from [facility] due to high degree AV block. The patient is unable to answer questions appropriately due to his dementia so history was only taken by the signout received from [place]. The patient was noted to have multiple episodes of presyncope over the last few days and today his heart rate was noted to be in 30s upon their initial evaluation. EKG showed a complete A-V dissociation after which thick reached out to [facility] cardiology for possible pacemaker placement. Due to significant bradycardia the patient is being transferred to [facility] ICU for close hemodynamic monitoring and management. PMH: Patient has no past medical history on file. PSH: Patient has no past surgical history on file. SH: Patient reports that he has quit smoking. His smoking use included cigarettes. He does not have any smokeless tobacco history on file. Alc/Tobacco/Drug: Patient has no history on file for alcohol use. reports that he has quit smoking. His smoking use included cigarettes. He does not have any smokeless tobacco history on file. has no history on file for drug use. Medications: Patient Current Facility-Administered Medications: glucose chewable tablet 24 g, 24 g, oral, q15 min PRN OR dextrose 50 % in water (D50W) syringe 25 g, 25 g, intravenous, q15 min PRN, Art Suh MD DOPamine 1,600 mcg/mL infusion, 10 mcg/kg/min, intravenous, Continuous, Simi Boggs MD, Last Rate: 37.1 mL/hr at 01/09/24318, 10 mcg/kg/min at 08/18/24 0319 heparin (porcine) injection 5,000 Units, 5,000 Units, subcutaneous, q8h Art SUNG MD insulin lispro (HumaLOG) injection 0-5 Units, 0-5 Units, subcutaneous, q6h PINEDA, Art Suh MD isoproterenol (Isuprel) 1,000 mcg in dextrose 5 % 500 mL (2 mcg/mL) infusion, 2 mcg/min, intravenous, Continuous, Simi Boggs MD, Last Rate: 60 mL/hr at 01/09/24 0212, 2 mcg/min at 01/09/24 021 ondansetron ODT (Zofran-ODT) disintegrating tablet 4 mg, 4 mg, oral, q8h PRN OR ondansetron HCl (PF) (Zofran) injection 4 mg, 4 mg, intravenous, q6h PRN, Art Suh MD Oxygen Therapy, , inhalation, Continuous, Art Suh MD pantoprazole (ProtoNix) injection 40 mg, 40 mg, intravenous, Daily before breakfast OR pantoprazole (ProtoNix) EC tablet 40 mg, 40 mg, oral, Daily before breakfast, Art Suh MD Allergies: Patient has no known allergies. Family history: family history is not on file. Review of Systems: Review of Systems Physical Exam height is 1.651 m (5' 5 ) and weight is 99 kg (218 lb 4.1 oz). His temperature is 35.6 ???C (96.1 ???F). His blood pressure is 128/23 (abnormal) and his pulse is 46 (abnormal). His respiration is 18 and oxygen saturation is 98%. No intake or output data in the 24 hours ending 01/09/24 0538 Admission weight: 99 kg (218 lb 4.1 oz) GENERAL: Alert and oriented x 3. No acute distress. HEENT: EOMI, no scleral icterus. Moist mucous membranes. NECK: trachea midline, no JVD. Supple. LUNGS: Clear to auscultation bilaterally. No wheezes, rales, or rhonchi CARDIOVASCULAR: Regular rate and rhythm. Normal S1 and S2. No murmur, rubs, or gallops. BACK: normal curvature ABDOMEN: Soft, non-tender, non-distended. Normal bowel sounds. No palpable masses. EXTREMITIES: No cyanosis, no edema, no calf tenderness SKIN: Warm and dry. No rashes or lesions NEUROLOGIC: Normal gait. No extremity weakness. No slurred speech PSYCHIATRIC: Cooperative. Appropriate mood and affect. Labs/Imaging Labs: ABG: CBC: Results from last 7 days Lab Units 01/09/24 0308 WBC AUTO 10*3/uL 12.07* HEMOGLOBIN g/dL 13.1 HEMATOCRIT % 39.6 PLATELETS AUTO 10*3/uL 235 Coagulation: Results from last 7 days L (more content not included)... Normal [facility] MAGNESIUMon 01-09-2024 Magnesium [Mass/Vol] 1.9 mg/dL Normal 1.9-2.7 [facility] Comment on above: Performed By: #### L [id number] #### [facility] ([employer]) [address] [place] [address] PHOSPHORUSon 01-09-2024 Magnesium [Mass/Vol] 3.2 mg/dL Normal 2.5-5.0 [facility] Comment on above: Performed By: #### L [id number] #### [facility] ([employer]) [address] [place] [address] POCT GLUCOSE METER UNSOLICIT ED RESULTSon 01-09-2024 Glucose [Mass/Vol] 219 mg/dL High 70-105 [facility] Comment on above: Order Comment: Waive d Testing in the ED is performed under the ED CLIA certificate #[id number]. Result Comment: nlad oos Performed By: #### L [id number] ####[facility] ([employer])[address] [place] [address] Glucose [Mass/Vol] 234 mg/dL High 70-105 [facility] Comment on above: Order Comment: Waive d Testing in the ED is performed under the ED CLIA certificate #[id number]. Result Comment: nlad oos Performed By: #### L [id number] #### [facility] ([employer]) [address] [place] [address] PROTIME-INRon 01-09-2024 INR IN PPP BY COAGULATION ASSAY 0.98 Normal 0.90-1.[address] [facility] Comment on above: Result Comment: [facility] P RECOMMENDED INR FOR WARFARIN THERAPY CONDITION INR PROPHYLAXIS OF VENOUS THROMBOSIS 2-3 (HIGH-RISK SURGERY) TREATMENT OF VENOUS THROMBOSIS 2-3 TREATMENT OF PULMONARY EMBOLISM 2-3 PREVENTION OF SYSTEMIC EMBOLISM: 2-3 ACUTE MYOCARDIAL INFARCTION TISSUE HEART VALVES VALVULAR HEART DISEASE ATRIAL FIBRILLATION RECURRENT SYSTEMIC EMBOLISM MECHANICAL HEART VALVE 2.5-3.5 FROM: ORAL ANTICOAGULANTS. MECHANISM OF ACTION, CLINICAL EFFECTIVENESS, AND OPTIMAL THERAPEUTIC RANGE. CHEST 1995;108:231S-246S. Performed By: #### L [id number] ####[facility] [place] [address] PROTHROMBIN TIME (PT) IN PPP BY COAGULATION ASSAY 13.0 Seconds Normal 12.3-14.8 [facility] Comment on above: Performed By: #### L [id number] ####[facility] [place] [address] TROPONIN Ion 01-09-2024 Troponin I.cardiac [Mass/Vol] 0.06 ng/mL High 0.00-0.[address] [facility] Comment on above: Performed By: #### L [id number] ####[facility] ([facility])[address] [place] [address] Insurance Correspondenceon 1 05-25-2022 Insurance Correspondence [id number]. 00TIFF Normal [facility] Coding Queryon 02-17-2023 Coding Query Normal [facility] Discharge Instructionson Discharge Instructions [id number]#1. 00CD:127 Normal [facility] Transfer Documentson 023 Transfer Documents [id number]#1. 00CD:127 Normal [facility] Discharge Note-Nursingon Discharge Note-Nursing Normal [facility] Interdisciplinary Note - Santosh e Manageron 01-23-2023 Interdisciplinary Note - Fuel Buyer Normal [facility] Comment on above: Result Comment: Elec tronically Signed By: Jose HAYDEN, Norma\.br\Date and Time Signed: 01/23/23 16:29 EDT Progress Note-Physicianon Progress Note-Physician Normal [facility] Comment on above: Result Comment: Elec tronically Signed By: New Johnson DO\.br\Date and Time Signed: 01/23/23 09:50 EDT Auto Diffon 01-22-2023 Basophils/100 WBC (Bld) 0.7 % Normal 0.0-2.0 [facility] Comment on above: Order Comment: Order Added by Discern Expert. Performed By: #### 2 826105, [id number], 8176791, 8467884 ####[facility] [address] [place] [address] Basophils/Leukocytes Auto (Bld) [Pure # fraction] 0.1 E9/L Normal 0.0-0.2 [facility] Comment on above: Order Comment: Order Added by Discern Expert. Performed By: #### 2 821528, [id number], 4584004, 6529512 ####[facility] [address] [place] [address] Eosinophils/100 WBC (Bld) 9.3 % High 0.0-8.0 [facility] Comment on above: Order Comment: Order Added by Discern Expert. Performed By: #### 2 776497, 20009475, 8609428, 3976803 ####[facility] [address] [place] [address] Eosinophils/Leukocytes Auto (Bld) [Pure # fraction] 0.8 E9/L High 0.0-0.5 [facility] Comment on above: Order Comment: Order Added by Discern Expert. Performed By: #### 2 385092, 77865880, 6050130, 0278572 ####[address] [address] Lymphocytes/100 WBC (Bld) 17.2 % Normal 14.0-50.0 [facility] Comment on above: Order Comment: Order Added by Discern Expert. Performed By: #### 2 568207, 75608909, 3505199, 0382801 ####[address] [address] Lymphocytes/Leukocytes Auto (Bld) [Pure # fraction] 1.4 E9/L Normal 1.0-4.0 [facility] Comment on above: Order Comment: Order Added by Discern Expert. Performed By: #### 2 896655, 07076537, 9408704, 3629106 ####[facility] [address] [place] [address] Monocytes/100 WBC (Bld) 10.0 % Normal 4.0-14.0 [facility] Comment on above: Order Comment: Order Added by Bethany Expert. Performed By: #### 2 589381, 23875392, 9367075, 9751074 ####[address] [address] Monocytes/Leukocytes Auto (Bld) [Pure # fraction] 0.8 E9/L Normal 0.2-1.0 [facility] Comment on above: Order Comment: Order Added by Discern Expert. Performed By: #### 2 787217, 03782167, 7427610, 5024430 ####[facility] [address] [facility] [address] Neutrophils/100 WBC (Bld) 62.8 % Normal 36.0-75.0 [facility] Comment on above: Order Comment: Order Added by Discern Expert. Performed By: #### 2 723671, 13317762, 9796984, 1490473 ####[address] [place] [address] Neutrophils/Leukocytes Auto (Bld) [Pure # fraction] 5.2 E9/L Normal 2.0-7.5 [facility] Comment on above: Order Comment: Order Added by Discern Expert. Performed By: #### 2 193743, 88437184, 9951691, 9036827 ####[address] [address] CBC w/ Auto Diffon 3 Erythrocyte distribution width (RBC) [Ratio] 15.2 % High 10.9-14.2 [facility] Comment on above: Performed By: #### 2 875901, 22688160, 7919178, 5149328 ####[address] [address] Hematocrit (Bld) [Volume fraction] 43.1 % Normal 37.7-49.0 [facility] Comment on above: Performed By: #### 2 448526, 29936183, 4674424, 5483543 ####[address] [address] Hemoglobin (Bld) [Mass/Vol] 14.6 g/dL Normal 13.5-17.5 [facility] Comment on above: Performed By: #### 2 060668, 41412685, 1659093, 4429530 ####[address] [address] MCH (RBC) [Entitic mass] 28.1 pg Normal 27.0-34.0 [facility] Comment on above: Performed By: #### 2 393256, 88277874, 3193392, 7525653 ####[address] [place] [address] MCHC (RBC) [Mass/Vol] 33.8 g/dL Normal 31.4-36.0 [facility] Comment on above: Performed By: #### 2 539243, 98048021, 2663973, 0127046 ####[facility] [address] [place] [address] MCV (RBC) [Entitic vol] 83.2 fL Normal 80.0-100.0 [facility] Comment on above: Performed By: #### 2 877388, 75900439, 5470110, 1603102 ####[address] [address] Platelet mean volume (Bld) [Entitic vol] 8.6 fL Normal 6.4-10.8 [facility] Comment on above: Performed By: #### 2 725656, 16753110, 1968039, 7661722 ####[address] [address] Platelets (Bld) [#/Vol] 221.0 E9/L Normal 150.0-500.0 [facility] Comment on above: Performed By: #### 2 613398, 00525258, 3680346, 4572371 ####[address] [address] RBC (Bld) [#/Vol] 5.2 E12/L Normal 4.3-5.9 [facility] Comment on above: Performed By: #### 2 402300, 49939752, 1992761, 5800091 ####[address] [address] WBC corrected for nucl RBC Auto (Bld) [#/Vol] 8.3 E9/L Normal 4.0-11.0 [facility] Comment on above: Performed By: #### 2 680509, 53987075, 0690381, 6238570 ####[address] [address] CHEMISTRYOrdered By: Kenny ROP User on 01-22-2023 Glucose [Mass/Vol] 121 mg/dL High 55 - 99 mg/dL [facility] POC Subsection Comment on above: Result Comment: Gareth guerrero RN/ POC Device SN [id number] Invalid Interpretation Code [facility] POC Subsection POC User ID [id number] Invalid Interpretation Code [facility] POC Subsection POC Username LATONIA MALHOTRA Invalid Interpretation Code [facility] POC Subsection CHEMISTRYOrdered By: SYSTEM [...] 56 mL/min/1.73 m2 Low >=59mL/min/ 1.73 m2 [facility] Chem S Globulin (S) [Mass/Vol] 3.6 g/dL Normal 1.4 - 4.0 gm/dL FT Remisol Glucose [Mass/Vol] 124 mg/dL Normal 55 - 199 mg/dL FT Remisol Potassium [Moles/Vol] 4.0 mmol/L Normal 3.5 - 5.3 mmol/L FT Remisol Protein [Mass/Vol] 7.3 g/dL Normal 6.0 - 7.8 gm/dL [facility] Remisol Sodium [Moles/Vol] 138 mmol/L Normal 135 - 145 mmol/L [facility] Remisol Urea nitrogen [Mass/Vol] 42 mg/dL High 5 - 21 mg/dL [facility] Remisol Urea nitrogen/Creatinine [Mass ratio] 32 mg/mg High 10 - 20 [facility] Remisol CMPon 01-22-2023 Albumin [Mass/Vol] 3.7 g/dL Normal 3.3-5.0 [facility] Comment on above: Performed By: #### 2 081625, 63440751, 9580059, 5263734 ####[facility] [address] [place] [address] Albumin/Globulin (S) [Mass conc ratio] 1.0 Low 1.1-2.2 [facility] Comment on above: Performed By: #### 2 424568, 85164086, 4992281, 5487968 ####[facility] [address] [place] [address] ALP [Catalytic activity/Vol] 47 Int._Unit/L Normal 21-98 [facility] Comment on above: Performed By: #### 2 263220, 26529025, 9987776, 1196640 ####[facility] [address] [place] [address] ALT No additional P-5'-P [Catalytic activity/Vol] 21 Int._Unit/L Normal 6-46 [facility] Comment on above: Performed By: #### 2 752372, 26670187, 8188322, 8372239 ####[facility] [address] [place] [address] Anion gap [Moles/Vol] 15 mmol/L Normal 6-16 [facility] Comment on above: Performed By: #### 2 005967, 51118703, 7045651, 4739077 ####[facility] [address] [place] [address] AST [Catalytic activity/Vol] 21 Int._Unit/L Normal 5-43 [facility] Comment on above: Performed By: #### 2 656372, 62253288, 0595376, 1636486 ####[facility] [address] [place] [address] Bilirubin [Mass/Vol] 0.8 mg/dL Normal 0.0-1.1 [facility] Comment on above: Performed By: #### 2 099743, 94030941, 8720196, 5711347 ####[facility] [address] [place] [address] Calcium [Mass/Vol] 9.6 mg/dL Normal 8.9-11.1 [facility] Comment on above: Performed By: #### 2 250881, 17235120, 3772864, 7941368 ####[facility] [address] [place] [address] Chloride [Moles/Vol] 97 mmol/L Low 101-111 [facility] Comment on above: Performed By: #### 2 256927, 31661511, 4486705, 5180211 ####[facility] [address] [place] [address] CO2 [Moles/Vol] 30 mmol/L Normal 21-31 [facility] Comment on above: Performed By: #### 2 899942, 14370422, 6935722, 2817311 ####[facility] [address] [place] [address] Creatinine [Mass/Vol] 1.3 mg/dL Normal 0.5-1.3 [facility] Comment on above: Performed By: #### 2 161874, 84840005, 6381535, 8885294 ####[facility] [address] [place] [address] Globulin (S) [Mass/Vol] 3.6 g/dL Normal 1.4-4.0 [facility] Comment on above: Performed By: #### 2 137365, 37470114, 9201806, 9109720 ####[address] [place] [address] Glucose [Mass/Vol] 124 mg/dL Normal 55-199 [facility] Comment on above: Result Comment: If t his glucose result represents a fasting glucose, interpretation should refer to the following reference range: 55-99 mg/dL Performed By: #### 2 598526, 71576955, 4430068, 7151063 ####[facility] [address] [place] [address] Potassium [Moles/Vol] 4.0 mmol/L Normal 3.5-5.3 [facility] Comment on above: Performed By: #### 2 408759, 06258051, 6436036, 4625834 ####[facility] [address] [place] [address] Protein [Mass/Vol] 7.3 g/dL Normal 6.0-7.8 [facility] Comment on above: Performed By: #### 2 991566, 15275270, 7368291, 4750608 ####[facility] [address] [place] [address] Sodium [Moles/Vol] 138 mmol/L Normal 135-145 [facility] Comment on above: Performed By: #### 2 242699, 60394553, 6805537, 3142907 ####[facility] [address] [place] [address] Urea nitrogen [Mass/Vol] 42 mg/dL High 5-21 [facility] Comment on above: Performed By: #### 2 938825, 89712710, 2891424, 1577405 ####[facility] [address] [place] [address] Urea nitrogen/Creatinine [Mass ratio] 32 No Units High 10-20 [facility] Comment on above: Performed By: #### 2 998937, 76536391, 8614518, 5786612 ####[facility] [address] [place] [address] Capillary Glucose POCon 09-0 Glucose [Mass/Vol] 121 mg/dL High 55-99 [facility] Comment on above: Result Comment: Gareth guerrero RN/ Performed By: #### 2 [id number] ####[facility] [address] [place] [address] Coding Queryon 01-22-2023 Coding Query [facility] [...] 34.0 pg FT HemeAutoSS MCHC (RBC) [Mass/Vol] 33.8 g/dL Normal [...] 5.2 E12/L Normal 4.3 - 5.9 E12/L FT HemeAutoSS WBC corrected for nucl RBC Auto (Bld) [#/Vol] 8.3 E9/L Normal 4.0 - 11.0 E9/L [facility] HemeAutoSS Insurance Correspondence Off iceon 01-22-2023 Insurance Correspondence Office [id number] 0CD:127 Normal [facility] Interdisciplinary Note - Santosh e Manageron 01-22-2023 Interdisciplinary Note - Fuel Buyer Normal [facility] Comment on above: Result Comment: Elec tronically Signed By: Natalie Grant\kade\Date and Time Signed: 01/22/23 11:13 EDT Interdisciplinary Note - Murphy n 01-22-2023 Interdisciplinary Note - OT Normal [facility] Interdisciplinary Note - PTo n 01-22-2023 Interdisciplinary Note - PT Normal [facility] Message from Medicareon Message from Medicare [id number]#[id number] 0CD:127 Normal [facility] Progress Note-Physicianon Progress Note-Physician Normal [facility] Comment on above: Result Comment: Elec tronically Signed By: New Johnson DO\Date and Time Signed: 01/22/23 14:15 EDT eGFRon 01-22-2023 GFR/1.73 sq M.predicted among non-blacks MDRD (S/P/Bld) [Vol rate/Area] 56 mL/min/1.73 m2 Low >=59 [facility] Comment on above: Order Comment: Order added by Discern Expert. Result Comment: Recreation Assistant earnest kidney disease could be indicated at eGFR's of less than 60 mL/min/1.73m2. Kidney failure is indicated at less than 15 mL/min/1.73m2. Performed By: #### 2 404374, 83809613, 5206893, 5932882 ####[facility] [address] [place] [address] Auto Diffon 01-21-2023 Basophils/100 WBC (Bld) 0.9 % Normal 0.0-2.0 [facility] Comment on above: Order Comment: Order Added by Discern Expert. Performed By: #### 2 938089, 1380077, 36716389, 44542876, 4644455, 5385079 ####[facility] [address] [place] [address] Basophils/Leukocytes Auto (Bld) [Pure # fraction] 0.1 E9/L Normal 0.0-0.2 [facility] Comment on above: Order Comment: Order Added by Discern Expert. Performed By: #### 2 924382, 1347256, 37574418, 35200905, 9371982, 5120002 ####[facility] [address] [place] [address] Eosinophils/100 WBC (Bld) 3.3 % Normal 0.0-8.0 [facility] Comment on above: Order Comment: Order Added by Discern Expert. Performed By: #### 2 134276, 2684310, 27963036, 21432981, 7721022, 6308498 ####[facility] [address] [place] [address] Eosinophils/Leukocytes Auto (Bld) [Pure # fraction] 0.4 E9/L Normal 0.0-0.5 [facility] Comment on above: Order Comment: Order Added by Discern Expert. Performed By: #### 2 835879, 1389798, 15107229, 80034448, 8112498, 7137668 ####[address] [address] Lymphocytes/100 WBC (Bld) 10.4 % Low 14.0-50.0 [facility] Comment on above: Order Comment: Order Added by Discern Expert. Performed By: #### 2 754716, 4523164, 95932245, 67345485, 6722170, 4188195 ####[address] [address] Lymphocytes/Leukocytes Auto (Bld) [Pure # fraction] 1.2 E9/L Normal 1.0-4.0 [facility] Comment on above: Order Comment: Order Added by Discern Expert. Performed By: #### 2 241190, 9427775, 92253993, 95590558, 0290660, 7500260 ####[address] [address] Monocytes/100 WBC (Bld) 7.4 % Normal 4.0-14.0 [facility] Comment on above: Order Comment: Order Added by Discern Expert. Performed By: #### 2 619023, 6695711, 61793289, 84734036, 4590180, 7320998 ####[address] [address] Monocytes/Leukocytes Auto (Bld) [Pure # fraction] 0.9 E9/L Normal 0.2-1.0 [facility] Comment on above: Order Comment: Order Added by Discern Expert. Performed By: #### 2 579736, 7902907, 10619550, 36849571, 9317435, 9802762 ####[address] [place] [address] Neutrophils/100 WBC (Bld) 78.0 % High 36.0-75.0 [facility] Comment on above: Order Comment: Order Added by Discern Expert. Performed By: #### 2 910712, 4082797, 34044489, 27856411, 9203788, 1809632 ####[facility] [address] [place] [address] Neutrophils/Leukocytes Auto (Bld) [Pure # fraction] 9.1 E9/L High 2.0-7.5 [facility] Comment on above: Order Comment: Order Added by Discern Expert. Performed By: #### 2 948580, 6184830, 30048569, 75114263, 2160225, 5029312 ####[facility] [address] [place] [address] BMPon 01-21-2023 Creatinine [Mass/Vol] 1.2 mg/dL Normal 0.5-1.3 [facility] Comment on above: Performed By: #### 2 470370, 2488909, 41716253, 33844422, 8295284, 9399439 ####[facility] [address] [place] [address] Urea nitrogen [Mass/Vol] 38 mg/dL High 5-21 [facility] Comment on above: Performed By: #### 2 454936, 0313636, 32265422, 41075912, 1851739, 3679532 ####[facility] [address] [place] [address] Urea nitrogen/Creatinine [Mass ratio] 32 No Units High 10-20 [facility] Comment on above: Performed By: #### 2 308647, 5637591, 91871718, 04540511, 4350736, 9321964 ####[facility] [address] [place] [address] Anion gap [Moles/Vol] 14 mmol/L Normal 6-16 [facility] Comment on above: Performed By: #### 2 560086, 7274396, 73431553, 54316582, 4837529, 6334549 ####[facility] [address] [place] [address] Calcium [Mass/Vol] 9.9 mg/dL Normal 8.9-11.1 [facility] Comment on above: Performed By: #### 2 386660, 0406242, 86818162, 17154651, 5380372, 8262294 ####[facility] [address] [place] [address] Chloride [Moles/Vol] 95 mmol/L Low 101-111 [facility] Comment on above: Performed By: #### 2 546557, 3037889, 51185496, 76140443, 5952436, 1799957 ####[facility] [address] [place] [address] CO2 [Moles/Vol] 31 mmol/L Normal 21-31 [facility] Comment on above: Performed By: #### 2 964857, 1517308, 36745597, 69018905, 7612972, 7866683 ####[facility] [address] [place] [address] Glucose [Mass/Vol] 124 mg/dL Normal 55-199 [facility] Comment on above: Result Comment: If t his glucose result represents a fasting glucose, interpretation should refer to the following reference range: 55-99 mg/dL Performed By: #### 2 667193, 2745660, 76126707, 44900710, 7103183, 1849474 ####[facility] [address] [place] [address] Potassium [Moles/Vol] 4.3 mmol/L Normal 3.5-5.3 [facility] Comment on above: Performed By: #### 2 939657, 5779091, 30312495, 80764674, 1870011, 1910267 ####[facility] [address] [place] [address] Sodium [Moles/Vol] 136 mmol/L Normal 135-145 [facility] Comment on above: Performed By: #### 2 857147, 7496610, 92559527, 35992337, 9486353, 5655993 ####[facility] [address] [place] [address] CBC w/ Auto Diffon 3 Erythrocyte distribution width (RBC) [Ratio] 15.4 % High 10.9-14.2 [facility] Comment on above: Performed By: #### 2 451194, 8936864, 18470696, 98528519, 8073063, 5590561 ####[facility] [address] [place] [address] Hematocrit (Bld) [Volume fraction] 42.5 % Normal 37.7-49.0 [facility] Comment on above: Performed By: #### 2 418588, 5498237, 91577703, 16219687, 7430800, 1848256 ####[address] [place] [address] Hemoglobin (Bld) [Mass/Vol] 13.9 g/dL Normal 13.5-17.5 [facility] Comment on above: Performed By: #### 2 289228, 8431788, 36020865, 28640362, 8689891, 2397396 ####[address] [address] MCH (RBC) [Entitic mass] 27.3 pg Normal 27.0-34.0 [facility] Comment on above: Performed By: #### 2 605115, 7502286, 61265401, 15611977, 9345523, 9836135 ####[address] [address] MCHC (RBC) [Mass/Vol] 32.7 g/dL Normal 31.4-36.0 [facility] Comment on above: Performed By: #### 2 012888, 6555775, 76802861, 65773697, 9171334, 1557529 ####[address] [place] [address] MCV (RBC) [Entitic vol] 83.4 fL Normal 80.0-100.0 [facility] Comment on above: Performed By: #### 2 799155, 2803687, 28948443, 04231455, 4195280, 3205357 ####[facility] [address] [place] [address] Platelet mean volume (Bld) [Entitic vol] 8.6 fL Normal 6.4-10.8 [facility] Comment on above: Performed By: #### 2 710056, 8373058, 57733245, 14652311, 0868299, 2661104 ####[address] [place] [address] Platelets (Bld) [#/Vol] 252.0 E9/L Normal 150.0-500.0 [facility] Comment on above: Performed By: #### 2 237042, 9269228, 39769428, 87736537, 2970953, 3437689 ####[address] [place] [address] RBC (Bld) [#/Vol] 5.1 E12/L Normal 4.3-5.9 [facility] Comment on above: Performed By: #### 2 580001, 1551322, 21219213, 05408717, 3206349, 6602389 ####[facility] [address] [place] [address] WBC corrected for nucl RBC Auto (Bld) [#/Vol] 11.6 E9/L High 4.0-11.0 [facility] Comment on above: Performed By: #### 2 069699, 4015363, 15557726, 55239819, 0386245, 7717330 ####[facility] [address] [place] [address] CHEMISTRYOrdered By: SYSTEM SYSTEM on 01-21-2023 Troponin [...] 62 mL/min/1.73 m2 Normal >=59mL/min/ 1.73 m2 [facility] Chem S Globulin (S) [Mass/Vol] 3.8 g/dL [...] for Treatmenton 12-24 Consent for Treatment [id number] [id number]#1.0 0CD:127 Normal [facility] ED Clinical Summaryon 2022 ED Clinical Summary Normal [facility] ED Note-Physicianon 01-22-20 ED Note-Physician Normal [facility] Comment on above: Result Comment: Elec tronically Signed By: Paramjit STEIN, Gustavo Geronimo.br\Date and Time Signed: 01/21/23 19:26 EDT ED [...] 9.1 E9/L High 2.0 - 7.5 E9/L FT HemeAutoSS HEMATOLOGYOrdered By: Olimipa Cardona on 01-21-2023 Erythrocyte distribution width (RBC) [Ratio] 15.4 % High 10.9 - 14.2 % FT HemeAutoSS Hematocrit (Bld) [Volume fraction] 42.5 % Normal 37.7 - 49.0 % FT HemeAutoSS Hemoglobin (Bld) [Mass/Vol] 13.9 g/dL Normal 13.5 - 17.5 gm/dL FT HemeAutoSS MCH (RBC) [Entitic mass] 27.3 pg Normal 27. 0 - 34.0 pg [facility] HemeAutoSS MCHC (RBC) [Mass/Vol] 32.7 g/dL Normal 31.4 - 36.0 gm/dL FT HemeAutoSS MCV (RBC) [Entitic vol] 83.4 fL Normal 80.0 - 100.0 fL FT HemeAutoSS Platelet mean volume (Bld) [Entitic vol] 8.6 fL Normal 6.4 - 10.8 fL FT HemeAutoSS Platelets (Bld) [#/Vol] 252.0 E9/L Normal 150. 0 - 500.0 E9/L FT HemeAutoSS RBC (Bld) [#/Vol] 5.1 E12/L Normal 4.3 - 5.9 E12/L FT HemeAutoSS WBC corrected for nucl RBC Auto (Bld) [#/Vol] 11.6 E9/L High 4.0 - 11.0 E9/L FT HemeAutoSS Hep Func Panelon 01-21-2023 Bilirubin.direct [Mass/Vol] 0.1 mg/dL Normal 0.1-0.4 [facility] Comment on above: Performed By: #### 2 339685, 6113515, 14083681, 66230447, 6724052, 7689134 ####[facility] [address] [place] [address] Bilirubin.indirect [Mass or moles/Vol] 0.8 mg/dL Normal 0.1-0.9 [facility] Comment on above: Performed By: #### 2 435804, 8514488, 63593960, 12829199, 4641555, 9064464 ####[facility] [address] [place] [address] Albumin [Mass/Vol] 3.9 g/dL Normal 3.3-5.0 [facility] Comment on above: Performed By: #### 2 661415, 1065890, 57117984, 76468702, 8322938, 3689975 ####[facility] [address] [place] [address] Albumin/Globulin (S) [Mass conc ratio] 1.0 Low 1.1-2.2 [facility] Comment on above: Performed By: #### 2 358343, 5637811, 65604154, 85182751, 8502167, 1917935 ####[address] [address] ALP [Catalytic activity/Vol] 50 Int._Unit/L Normal 21-98 [facility] Comment on above: Performed By: #### 2 783767, 4306487, 81851637, 10536868, 9445519, 5885505 ####[address] [address] ALT No additional P-5'-P [Catalytic activity/Vol] 23 Int._Unit/L Normal 6-46 [facility] Comment on above: Performed By: #### 2 239370, 9084524, 40812853, 25037446, 9687910, 4335850 ####[facility] [address] [place] [address] AST [Catalytic activity/Vol] 22 Int._Unit/L Normal 5-43 [facility] Comment on above: Performed By: #### 2 931728, 2794852, 17709162, 53250685, 6622762, 3776020 ####[facility] [address] [place] [address] Bilirubin [Mass/Vol] 0.9 mg/dL Normal 0.0-1.1 [facility] Comment on above: Performed By: #### 2 065555, 3377862, 40051112, 12636326, 8877063, 8777213 ####[facility] [address] [place] [address] Globulin (S) [Mass/Vol] 3.8 g/dL Normal 1.4-4.0 [facility] Comment on above: Performed By: #### 2 239668, 8714559, 35640653, 81321088, 3603627, 2618007 ####[facility] [address] [place] [address] Protein [Mass/Vol] 7.7 g/dL Normal 6.0-7.8 [facility] Comment on above: Performed By: #### 2 848305, 0958039, 88031661, 14763615, 8605442, 5467726 ####[address] [place] [address] Jail Recordson 01-21 Jail Records [id number]#1. 00CD:127 Normal [facility] Troponin 0 Hr.on 01-21-2023 Troponin I.cardiac [Mass/Vol] 25.50 pg/mL Normal 15.90-38.40 [facility] Comment on above: Result Comment: The 95% CI (Confidence Interval) PPV (Positive Predictive Value) for myocardial infarction in females is 38 pg/mL, in males 51 pg/mL. The results should be used in conjunction with clinical conditions of myocardial infarction.(Access High Sensitivity Troponin I Instructions For Use, Claudia [place], December 2017) Performed By: #### 2 199031, 6945925, 09467876, 69470361, 1005747, 8860487 ####[facility] [address] [place] [address] Troponin 3 Hr.on 01-21-2023 Troponin I.cardiac [Mass/Vol] 23.90 pg/mL Normal 15.90-38.40 [facility] Comment on above: Result Comment: The 95% CI (Confidence Interval) PPV (Positive Predictive Value) for myocardial infarction in females is 38 pg/mL, in males 51 pg/mL. The results should be used in conjunction with clinical conditions of myocardial infarction.(Access High Sensitivity Troponin I Instructions For Use, Claudia [place], December 2017) Performed By: #### 1 2917347 ####[facility] [address] [place] [address] UA With Cult Reflexon 2022 Bilirubin Ql (U) Negative Normal Negative [facility] Comment on above: Performed By: #### 1 3102871 ####[address] [address] Clarity (U) CLEAR Normal Clear [facility] Comment on above: Performed By: #### 1 5092210 ####[address] [address] Color (U) STRAW Abnormal Yellow [facility] Comment on above: Performed By: #### 1 1448754 ####[address] [address] Epithelial cells.squamous LM.HPF (Urine sed) [#/Area] 0-2 Normal 0-2 [facility] Comment on above: Performed By: #### 1 2792399 ####[address] [address] Glucose Test strip (U) [Mass/Vol] Negative Normal Negative [facility] Comment on above: Performed By: #### 1 7114390 ####[address] [address] Hemoglobin Ql (U) Negative Normal Negative [facility] Comment on above: Performed By: #### 1 2153202 ####[address] [address] Ketones (U) [Mass/Vol] Negative Normal Negative [facility] Comment on above: Performed By: #### 1 1641618 ####[address] [address] [place].plasma/N[place]leton.R BC (Bld) [Mass ratio] 0-3 Normal 0-3 [facility] Comment on above: Performed By: #### 1 5650864 ####[facility] [address] [place] [address] Nitrite Ql (U) Negative Normal Negative [facility] Comment on above: Performed By: #### 1 4259850 ####[address] [address] pH (U) 6.0 [pH] Invalid Interpretation Code 5.0-9.0 [facility] Comment on above: Performed By: #### 1 9167892 ####[address] [address] Protein (U) [Mass/Vol] Negative Normal Negative [facility] Comment on above: Performed By: #### 1 6750186 ####[address] [address] Specific gravity (U) [Rel density] 1.010 Invalid Interpretation Code 1.005-1.030 [facility] Comment on above: Performed By: #### 1 4382785 ####[address] [address] Type of Urine collection method Clean Catch Normal [facility] Comment on above: Performed By: #### 1 9214165 ####[address] [address] Urobilinogen Qn (U) 0.2 {Lei'U}/dL Normal 0.0-1.0 [facility] Comment on above: Performed By: #### 1 7131649 ####[address] [address] WBC Auto Ql (U) Negative Normal Negative [facility] Comment on above: Performed By: #### 1 1333239 ####[address] [address] WBC LM.HPF (Urine sed) [#/Area] 0-5 Normal 0-5 [facility] Comment on above: Performed By: #### 1 5504772 ####[facility] [address] [place] [address] URINALYSISOrdered By: Karen Vergara on 01-21-2023 Bilirubin [...] PM) Normal Negative [facility] UA Auto SS [place].plasma/[place].R BC (Bld) [Mass ratio] 0-3 /HPF Normal [...] Desc Clean Catch (01/21/23 4:41 PM) Normal [facility] UA Auto SS Urobilinogen Qn (U) 0.2179423 {Lei'U}/dL Normal 0.0 - 1.0 EU/dL [facility] UA Auto SS WBC Auto Ql (U) Negative (01/21/23 4:41 PM) Normal Negative [facility] UA Auto SS WBC LM.HPF (Urine sed) [#/Area] 0-5 /HPF Normal 0-5/HPF [facility] UA Auto SS XR Chest Single Viewon 01-21 XR Chest Single View Normal [facility] eGFRon 01-21-2023 GFR/1.73 sq M.predicted among non-blacks MDRD (S/P/Bld) [Vol rate/Area] 62 mL/min/1.73 m2 Normal >=59 [facility] Comment on above: Order Comment: Order added by Discern Expert. Result Comment: Recreation Assistant earnest kidney disease could be indicated at eGFR's of less than 60 mL/min/1.73m2. Kidney failure is indicated at less than 15 mL/min/1.73m2. Performed By: #### 2 584996, 9425074, 95987860, 62283403, 1496873, 0147064 ####[facility] [address] [place] [address] Discharge Instructionson Discharge Instructions [id number]#1.0 0CD:127 Normal [facility] Capillary Glucose POCon 12-23 Glucose [Mass/Vol] 117 mg/dL High 55-99 [facility] Comment on above: Result Comment: Yazmin bri Meter Performed By: #### 2 29153615 ####[facility] [address] [place] [address] Family Medicine Office/Clini c Noteon 01-15-2023 Family Medicine Office/Clinic Note Normal [facility] Comment on above: Result Comment: Elec tronically Signed By: SHAISTA POTTS, Donta\.br\Date and Time Signed: 01/15/23 16:46 EDT Capillary Glucose POCon 12-23 Glucose [Mass/Vol] 121 mg/dL High 55-99 [facility] Comment on above: Result Comment: Yazmin bri Meter Performed By: #### 2 62832618 ####[facility] [address] [place] [address] Capillary Glucose POCon 12-23 Glucose [Mass/Vol] 127 mg/dL High 55-99 [facility] Comment on above: Result Comment: Yazmin bri Meter Performed By: #### 2 99699293 ####[facility] [address] [place] [address] Capillary Glucose POCon 12-22 Glucose [Mass/Vol] 104 mg/dL High [address] [place] [address] Comment on above: Result Comment: Yazmin bri Meter Performed By: #### 2 62845960 ####[facility] [address] [place] [address] Capillary Glucose POCon 12-22 Glucose [Mass/Vol] 121 mg/dL High - [facility] Comment on above: Result Comment: Yazmin bri Meter Performed By: #### 2 45652085 ####[facility] [address] [place] [address] Capillary Glucose POCon 12-22 Glucose [Mass/Vol] 110 mg/dL [address] Comment on above: Result Comment: Yazmin bri Meter Performed By: #### 2 37738028 ####[facility] [address] [place] [address] Capillary Glucose POCon 12-22 Glucose [Mass/Vol] 119 mg/dL [address] Comment on above: Result Comment: Yazmin bri Meter Performed By: #### 2 11100202 ####[facility] [address] [place] [address] Capillary Glucose POCon 12-22 Glucose [Mass/Vol] 141 mg/dL [address] Comment on above: Result Comment: Yazmin bri Meter Performed By: #### 2 11847667 ####[facility] [address] [place] [address] Capillary Glucose POCon 12-22 Glucose [Mass/Vol] 104 mg/dL [address] Comment on above: Result Comment: Yazmin bri Meter Performed By: #### 2 81844261 ####[facility] [address] [place] [address] BMPon 12-30-2022 Calcium [Mass/Vol] 9.1 mg/dL Normal 8.9-11.1 [facility] Comment on above: Performed By: #### 7 06356370, 2739817, 70494610 ####[facility] [address] [place] [address] Anion gap [Moles/Vol] 18 mmol/L High 6-16 [facility] Comment on above: Performed By: #### 7 91162395, 9479242, 77548613 ####[facility] [address] [place] [address] Chloride [Moles/Vol] 91 mmol/L Low 101-111 [facility] Comment on above: Performed By: #### 7 67041127, 7934421, 81675370 ####[facility] [address] [place] [address] CO2 [Moles/Vol] 30 mmol/L Normal 21-31 [facility] Comment on above: Performed By: #### 7 19574901, 1723946, 65951013 ####[facility] [address] [place] [address] Creatinine [Mass/Vol] 1.3 mg/dL Normal 0.5-1.3 [facility] Comment on above: Performed By: #### 7 74631817, 6034133, 22556824 ####[facility] [address] [place] [address] Glucose [Mass/Vol] 171 mg/dL Normal 55-199 [facility] Comment on above: Result Comment: If t his glucose result represents a fasting glucose, interpretation should refer to the following reference range: 55-99 mg/dL Performed By: #### 7 64293326, 9371558, 75436458 ####[facility] [address] [place] [address] Potassium [Moles/Vol] 4.2 mmol/L Normal 3.5-5.3 [facility] Comment on above: Performed By: #### 7 11849821, 8623749, 87448377 ####[facility] [address] [place] [address] Sodium [Moles/Vol] 135 mmol/L Normal 135-145 [facility] Comment on above: Performed By: #### 7 98971213, 0180040, 90185395 ####[facility] [address] [place] [address] Urea nitrogen [Mass/Vol] 36 mg/dL High 5-21 [facility] Comment on above: Performed By: #### 7 06284773, 9960060, 38845950 ####[facility] [address] [place] [address] Urea nitrogen/Creatinine [Mass ratio] 28 No Units High 10-20 [facility] Comment on above: Performed By: #### 7 74487720, 5561321, 57075159 ####[facility] [address] [place] [address] JxjW4hpn 12-30-2022 HbA1c (Bld) [Mass fraction] 6.9 % High <=5.9 [facility] Comment on above: Performed By: #### 7 91382029, 4448749, 54334279 ####[facility] [address] [place] [address] eGFRon 12-30-2022 GFR/1.73 sq M.predicted among non-blacks MDRD (S/P/Bld) [Vol rate/Area] 56 mL/min/1.73 m2 Low >=59 [facility] Comment on above: Order Comment: Order added by Discern Expert. Result Comment: Recreation Assistant earnest kidney disease could be indicated at eGFR's of less than 60 mL/min/1.73m2. Kidney failure is indicated at less than 15 mL/min/1.73m2. Performed By: #### 7 71582221, 3604168, 46422708 ####[facility] [address] [place] [address] Capillary Glucose POCon 08- Glucose [Mass/Vol] 141 mg/dL High 55-99 [facility] Comment on above: Result Comment: Yazmin bri Meter Performed By: #### 2 32401587 ####[facility] [address] [place] [address] Capillary Glucose POCon 08-0 -2022 Glucose [Mass/Vol] 101 mg/dL High 55-99 [facility] Comment on above: Result Comment: Yazmin bri Meter Performed By: #### 2 48235484 ####[facility] [address] [place] [address] C Blood Charcoalon 3 Blood Culture Charcoal Normal [facility] Comment on above: Performed By: #### 1 1860104 ####[facility] [address] [place] [address] Capillary Glucose POCon 08-0 -2022 Glucose [Mass/Vol] 135 mg/dL High 55-99 [facility] Comment on above: Result Comment: Yazmin bri Meter Performed By: #### 2 30278735 ####[facility] [address] [place] [address] Capillary Glucose POCon 08-0 Glucose [Mass/Vol] 110 mg/dL [facility] [address] [place] [address] Comment on above: Result Comment: Yazmin bri Meter Performed By: #### 2 98075276 ####[facility] [address] [place] [address] Consultation Noteon 12-24-19 23 Consultation Note Normal [facility] Comment on above: Result Comment: Elec tronically Signed By: Marcus POTTS, [place]\.br\Date and Time Signed: 12/23/22 07:33 EDT Family Medicine Office/Clini c Noteon 12-23-2022 Family Medicine Office/Clinic Note Normal [facility] Comment on above: Result Comment: Elec tronically Signed By: Donta NOONAN MD\Toshabr\Date and Time Signed: 12/22/22 22:31 EDT C Blood Charcoalon 3 Blood Culture Charcoal Normal [facility] Comment on above: Performed By: #### 1 [id number] ####[facility] [address] [place] [address] U Legi Agon 12-22-2022 L. pneumophila 1 Ag IA Ql (U) Negative Invalid Interpretation Code Negative [facility] Comment on above: Result Comment: Pres umptive negative for L. pneumophila serogroup 1 antigen in urine,suggesting no recent or current infection. Legionnaires' diseasecannot be ruled out since other serogroups and species may also causedisease.Performed at: Lab[address] [id number] MD Tyler Gurrola Performed By: #### 2 750333 ####[address] [address] C Urineon 12-21-2022 Bacteria identified Cx Nom (U) Normal [facility] Comment on above: Performed By: #### 1 [id number], 4886274 ####[address] [address] Capillary Glucose POCon 11-23 Glucose [Mass/Vol] 134 mg/dL High 55-99 [facility] Comment on above: Result Comment: Yazmin bri Meter Performed By: #### 2 [id number] ####[address] [address] Auto DiffOrdered By: SYSTEM SYSTEM on 12-20-2022 Basophils/100 WBC (Bld) 0.5 % Normal 0.0-2.0 [place] [facility] [place] [facility] Comment on above: Order Comment: Order Added by Discern Expert. Performed By: #### 2 024747, 9883167, 33570717, 8741915 ####[address] [place] [address] Basophils/Leukocytes Auto (Bld) [Pure # fraction] 0.0 E9/L Normal 0.0-0.2 [facility] HemeAuto[facility] Comment on above: Order Comment: Order Added by Discern Expert. Performed By: #### 2 939919, 4893179, 31012504, 7204308 ####[facility] [address] [address] Eosinophils/100 WBC (Bld) 7.9 % Normal 0.0-8.0 [facility] Comment on above: Order Comment: Order Added by Discern Expert. Performed By: #### 2 852636, 6896423, 25665085, 8631989 ####[facility] [address] [address] Eosinophils/Leukocytes Auto (Bld) [Pure # fraction] 0.8 E9/L High 0.0-0.5 [facility] Comment on above: Order Comment: Order Added by Discern Expert. Performed By: #### 2 566609, 2667749, 70604428, 8189128 ####[facility] [address] [address] Lymphocytes/100 WBC (Bld) 9.5 % Low 14.0-50.0 [facility] Comment on above: Order Comment: Order Added by Discern Expert. Performed By: #### 2 943349, 0804561, 74483825, 5851909 ####Ciro [address] [address] Lymphocytes/Leukocytes Auto (Bld) [Pure # fraction] 1.0 E9/L Normal 1.0-4.0 [facility] Comment on above: Order Comment: Order Added by Discern Expert. Performed By: #### 2 381823, 7767202, 20891548, 5899813 ####[facility] [address] [address] Monocytes/100 WBC (Bld) 7.6 % Normal 4.0-14.0 F [facility] Comment on above: Order Comment: Order Added by Discern Expert. Performed By: #### 2 412587, 7843387, 51296736, 3552813 ####[address] [address] Monocytes/Leukocytes Auto (Bld) [Pure # fraction] 0.8 E9/L Normal 0.2-1.0 [facility] Comment on above: Order Comment: Order Added by Discern Expert. Performed By: #### 2 369869, 9782387, 06278463, 9143641 ####[facility] [address] [place] [address] Neutrophils/100 WBC (Bld) 74.5 % Normal 36.0-75.0 [facility] Comment on above: Order Comment: Order Added by Discern Expert. Performed By: #### 2 169356, 4552834, 59024107, 0953643 ####[facility] [address] [address] Neutrophils/Leukocytes Auto (Bld) [Pure # fraction] 7.7 E9/L High 2.0-7.5 [facility] Comment on above: Order Comment: Order Added by Discern Expert. Performed By: #### 2 202573, 1170345, 68242279, 9260249 ####[facility] [address] [address] BMPOrdered By: SYSTEM SYSTEM on 12-20-2022 Anion gap [Moles/Vol] 8 mmol/L Normal 6-16 [facility] Comment on above: Performed By: #### 2 077026, 1077605, 16563484, 7451840 ####[facility] [address] [address] Calcium [Mass/Vol] 7.9 mg/dL Low 8.9-11.1 [facility] Comment on above: Performed By: #### 2 828535, 2220653, 36946877, 6425303 ####[address] [address] Chloride [Moles/Vol] 105 mmol/L Normal 101-111 [facility] Comment on above: Performed By: #### 2 619560, 2065748, 40051433, 6382214 ####[facility] [address] [place] [address] CO2 [Moles/Vol] 25 mmol/L Normal 21-31 [facility] Ashwin luanne Comment on above: Performed By: #### 2 200767, 5698564, 21614549, 5921522 ####[facility] [address] [place] [address] Creatinine [Mass/Vol] 1.0 mg/dL Normal 0.5-1.3 [facility] Comment on above: Performed By: #### 2 557382, 5948940, 58503209, 6921425 ####[facility] [address] [place] [address] Glucose [Mass/Vol] 106 mg/dL Normal 55-199 [facility] R emisol Comment on above: Result Comment: If t his glucose result represents a fasting glucose, interpretation should refer to the following reference range: 55-99 mg/dL Performed By: #### 2 069018, 9316314, 40749630, 0185839 ####[facility] [address] [place] [address] Potassium [Moles/Vol] 4.4 mmol/L Normal 3.5-5.3 [facility] Comment on above: Performed By: #### 2 139158, 7934099, 74237195, 2467287 ####[facility] [address] [place] [address] Sodium [Moles/Vol] 134 mmol/L Low 135-145 [facility] R emisol Comment on above: Performed By: #### 2 126859, 8335336, 49339916, 6073560 ####[facility] [address] [place] [address] Urea nitrogen [Mass/Vol] 22 mg/dL High 5-21 [facility] Comment on above: Performed By: #### 2 772159, 5966034, 46109230, 2216969 ####[facility] [address] [place] [address] BMPon 12-20-2022 Urea nitrogen/Creatinine [Mass ratio] 22 No Units High 10-20 [facility] Comment on above: Performed By: #### 2 352320, 5689382, 76472703, 4555645 ####[facility] [address] [place] [address] CBC w/ Auto DiffOrdered By: Bony Hdez on 12-20-2022 Erythrocyte distribution width (RBC) [Ratio] 14.7 % High 10.9-14.2 [facility]eAuto[facility] Comment on above: Performed By: #### 2 255016, 9744582, 23811985, 7724209 ####[facility] [address] [address] Hematocrit (Bld) [Volume fraction] 34.6 % Low 37.7-49.0 [facility] Comment on above: Performed By: #### 2 780024, 3112937, 84301791, 0765916 ####[address] [address] Hemoglobin (Bld) [Mass/Vol] 11.7 g/dL Low 13.5-17.5 [facility]Auto[facility] Comment on above: Performed By: #### 2 597460, 0669724, 01508058, 1862635 ####[address] [address] MCH (RBC) [Entitic mass] 28.6 pg Normal 27.0-34.0 [facility]eAuto[facility] Comment on above: Performed By: #### 2 442837, 7338974, 31418261, 2324075 ####[address] [address] MCHC (RBC) [Mass/Vol] 33.7 g/dL Normal 31.4-36.0 [facility]eAuto[facility] Comment on above: Performed By: #### 2 726352, 1597431, 72549624, 5172182 ####[address] [address] MCV (RBC) [Entitic vol] 84.7 fL Normal 80.0-100.0 F C [facility]eAutoSS Comment on above: Performed By: #### 2 912725, 7521976, 24569309, 8788328 ####[address] [address] Platelet mean volume (Bld) [Entitic vol] 9.5 fL Normal 6.4-10.8 [facility]eAuto[facility] Comment on above: Performed By: #### 2 266884, 4534118, 88317517, 1865802 ####[facility] [address] [place] [address] Platelets (Bld) [#/Vol] 216.0 E9/L Normal 150.0-500.0 [facility]eAuto[facility] Comment on above: Performed By: #### 2 205082, 6067863, 86912472, 8492132 ####[facility] [address] [place] [address] RBC (Bld) [#/Vol] 4.1 E12/L Low 4.3-5.9 [facility]eAuto[facility] Comment on above: Performed By: #### 2 687437, 9826599, 84881045, 4522374 ####[facility] [address] [place] [address] WBC corrected for nucl RBC Auto (Bld) [#/Vol] 10.3 E9/L Normal 4.0-11.0 [facility] Comment on above: Performed By: #### 2 171607, 7769532, 56373317, 7714291 ####[facility] [address] [place] [address] CHEMISTRYOrdered By: Lab ROP User on 12-20-2022 Glucose [Mass/Vol] 109 mg/dL High 55 - 99 mg/dL [facility] POC Subsection Comment on above: Result Comment: Gareth guerrero RN/ POC Device SN [id number] Invalid Interpretation Code [facility] POC Subsection POC User ID [id number] Invalid Interpretation Code [facility] POC Subsection POC Username SAMANTHA LAMBERT Invalid Interpretation Code [facility] POC Subsection CHEMISTRYOrdered By: SYSTEM SYSTEM on 12-20-2022 Urea nitrogen/Creatinine [Mass ratio] 22 mg/mg High 10 - 20 [facility] Remisol Capillary Glucose POCon 11-23 Glucose [Mass/Vol] 198 mg/dL High 55-99 [facility] Comment on above: Result Comment: Yazmin bri Meter Performed By: #### 2 80165199 ####[facility] [address] [place] [address] Glucose [Mass/Vol] 109 mg/dL High 55-99 [facility] Comment on above: Result Comment: Gareth guerrero RN/ Performed By: #### 2 93681209 ####[facility] [address] [place] [address] Discharge Documentationon Discharge Documentation [id number]#1.0 0CD:127 Normal [facility] Inpatient Patient Summaryon 12-20-2022 Inpatient Patient Summary Normal [facility] Message from Medicareon 11-23 Message from Medicare [id number]#1. 00CD:127 Normal [facility] Monitor Recordon 12-20-2022 Monitor Record [id number]#1. 00CD:127 Normal [facility] Monitor Record [id number]#1. 00CD:127 Normal [facility] Monitor Record [id number]#1. 00CD:127 Normal [facility] Progress Note-Nurseon 2022 Progress Note-Nurse SBAR report called fanta Robert. Patient was transferred into wheelchair x2 stand pivot. Patient discharged to [facility] room 17. Transport by Samantha Lambert POCT. Normal [facility] Transfer Documentson 023 Transfer Documents [id number]#1.0 0CD:127 Normal [facility] eGFROrdered By: MICKEY Alvarado on 12-20-2022 GFR/1.73 sq M.predicted among non-blacks MDRD (S/P/Bld) [Vol rate/Area] 77 mL/min/1.73 m2 Normal >=59 [facility] Chem S Comment on above: Order Comment: Order added by Discern Expert. Result Comment: Recreation Assistant earnest kidney disease could be indicated at eGFR's of less than 60 mL/min/1.73m2. Kidney failure is indicated at less than 15 mL/min/1.73m2. Performed By: #### 2 125107, 3807329, 42806056, 4063176 ####[address] [place] [address] Auto Diffon 12-19-2022 Basophils/100 WBC (Bld) 0.4 % Normal 0.0-2.0 [facility] Comment on above: Order Comment: Order Added by Discern Expert. Performed By: #### 1 9461101, 6187985, 8417096, 4229730 ####[address] [address] Basophils/Leukocytes Auto (Bld) [Pure # fraction] 0.0 E9/L Normal 0.0-0.2 [facility] Comment on above: Order Comment: Order Added by Discern Expert. Performed By: #### 1 0078191, 9214441, 5783829, 9518272 ####[address] [address] Eosinophils/100 WBC (Bld) 4.2 % Normal 0.0-8.0 [facility] Comment on above: Order Comment: Order Added by Discern Expert. Performed By: #### 1 8160538, 0050160, 1548512, 8923420 ####[address] [address] Eosinophils/Leukocytes Auto (Bld) [Pure # fraction] 0.6 E9/L High 0.0-0.5 [facility] Comment on above: Order Comment: Order Added by Discern Expert. Performed By: #### 1 8190379, 5746713, 1180411, 5025215 ####[address] [address] Lymphocytes/100 WBC (Bld) 7.3 % Low 14.0-50.0 [facility] Comment on above: Order Comment: Order Added by Discern Expert. Performed By: #### 1 7859714, 2868586, 1735595, 7843691 ####[facility] [address] [place] [address] Lymphocytes/Leukocytes Auto (Bld) [Pure # fraction] 1.0 E9/L Normal 1.0-4.0 [facility] Comment on above: Order Comment: Order Added by Discern Expert. Performed By: #### 1 1940376, 2676241, 5949689, 7569854 ####[address] [place] [address] Monocytes/100 WBC (Bld) 6.5 % Normal 4.0-14.0 [facility] Comment on above: Order Comment: Order Added by Discern Expert. Performed By: #### 1 5374030, 3588194, 8427037, 1666838 ####[address] [address] Monocytes/Leukocytes Auto (Bld) [Pure # fraction] 0.9 E9/L Normal 0.2-1.0 [facility] Comment on above: Order Comment: Order Added by Discern Expert. Performed By: #### 1 9584702, 3058998, 8918144, 8031145 ####[address] [place] [address] Neutrophils/100 WBC (Bld) 81.6 % High 36.0-75.0 [facility] Comment on above: Order Comment: Order Added by Discern Expert. Performed By: #### 1 9073500, 9530034, 0694809, 8292690 ####[address] [place] [address] Neutrophils/Leukocytes Auto (Bld) [Pure # fraction] 10.7 E9/L High 2.0-7.5 [facility] Comment on above: Order Comment: Order Added by Discern Expert. Performed By: #### 1 1839390, 6894320, 8906595, 0177010 ####[facility] [address] [place] [address] BMPon 12-19-2022 Anion gap [Moles/Vol] 11 mmol/L Normal 6-16 [facility] Comment on above: Performed By: #### 1 7924203, 7807192, 3980080, 8381180 ####[facility] [address] [place] [address] Calcium [Mass/Vol] 8.5 mg/dL Low 8.9-11.1 [facility] Comment on above: Performed By: #### 1 5658254, 5137283, 3516136, 9683760 ####[facility] [address] [place] [address] Chloride [Moles/Vol] 103 mmol/L Normal 101-111 [facility] Comment on above: Performed By: #### 1 6345295, 7206722, 2575923, 5778061 ####[facility] [address] [place] [address] CO2 [Moles/Vol] 28 mmol/L Normal 21-31 [facility] Comment on above: Performed By: #### 1 8681043, 1908797, 0690586, 5168129 ####[facility] [address] [place] [address] Creatinine [Mass/Vol] 1.2 mg/dL Normal 0.5-1.3 [facility] Comment on above: Performed By: #### 1 9774282, 3113122, 5726151, 5665958 ####[facility] [address] [place] [address] Glucose [Mass/Vol] 86 mg/dL Normal 55-199 [facility] Comment on above: Result Comment: If t his glucose result represents a fasting glucose, interpretation should refer to the following reference range: 55-99 mg/dL Performed By: #### 1 9929004, 4212550, 5128039, 0043964 ####[facility] [address] [place] [address] Potassium [Moles/Vol] 4.5 mmol/L Normal 3.5-5.3 [facility] Comment on above: Performed By: #### 1 3735348, 6663850, 4202293, 9908908 ####[facility] [address] [place] [address] Sodium [Moles/Vol] 137 mmol/L Normal 135-145 [facility] Comment on above: Performed By: #### 1 4146808, 6926536, 2517638, 3705521 ####[facility] [address] [place] [address] Urea nitrogen [Mass/Vol] 35 mg/dL High 5-21 [facility] Comment on above: Performed By: #### 1 4068066, 5885584, 4895818, 6353517 ####[facility] [address] [place] [address] Urea nitrogen/Creatinine [Mass ratio] 29 No Units High 10-20 [facility] Comment on above: Performed By: #### 1 7364429, 3322028, 8755388, 7479110 ####[facility] [address] [place] [address] CBC w/ Auto Diffon 3 Erythrocyte distribution width (RBC) [Ratio] 15.0 % High 10.9-14.2 [facility] Comment on above: Performed By: #### 1 7027507, 7665545, 1268743, 1320348 ####[facility] [address] [place] [address] Hematocrit (Bld) [Volume fraction] 38.4 % Normal 37.7-49.0 [facility] Comment on above: Performed By: #### 1 6643098, 0534944, 9543666, 3233812 ####[facility] [address] [place] [address] Hemoglobin (Bld) [Mass/Vol] 12.7 g/dL Low 13.5-17.5 [facility] Comment on above: Performed By: #### 1 8051063, 7533839, 7322086, 1174500 ####[facility] [address] [place] [address] MCH (RBC) [Entitic mass] 27.9 pg Normal 27.0-34.0 [facility] Comment on above: Performed By: #### 1 7716070, 7984687, 4863452, 9951254 ####[address] MCHC (RBC) [Mass/Vol] 32.9 g/dL Normal 31.4-36.0 [facility] Comment on above: Performed By: #### 1 0596151, 5928683, 9172283, 6361364 ####[address] MCV (RBC) [Entitic vol] 84.8 fL Normal 80.0-100.0 [facility] Comment on above: Performed By: #### 1 6694557, 7774945, 3332165, 8116943 ####[address] [address] Platelet mean volume (Bld) [Entitic vol] 9.5 fL Normal 6.4-10.8 [facility] Comment on above: Performed By: #### 1 6115193, 4290080, 7987366, 5959555 ####[address] Platelets (Bld) [#/Vol] 230.0 E9/L Normal 150.0-500.0 [facility] Comment on above: Performed By: #### 1 9952372, 3203909, 0768534, 0850862 ####[address] [address] RBC (Bld) [#/Vol] 4.5 E12/L Normal 4.3-5.9 [facility] Comment on above: Performed By: #### 1 9983989, 9840455, 4402925, 4169431 ####[address] [address] WBC corrected for nucl RBC Auto (Bld) [#/Vol] 13.1 E9/L High 4.0-11.0 [facility] Comment on above: Performed By: #### 1 8578101, 0565868, 3968805, 7381669 ####[facility] [id number] CHEMISTRYOrdered By: Lab ROP User on 12-19-2022 Glucose [Mass/Vol] 210 mg/dL High 55 - 99 mg/dL [facility] POC Subsection Comment on above: Result Comment: Gareth guerrero RN/ POC Device SN [id number] Invalid Interpretation Code [facility] POC Subsection POC User ID [id number] Invalid Interpretation Code [facility] POC Subsection POC Username SHER GAVIRIA Invalid Interpretation Code [facility] POC Subsection Glucose [Mass/Vol] 111 mg/dL High 55 - 99 mg/dL [facility] POC Subsection Comment on above: Result Comment: Gareth guerrero RN/ POC Device SN [id number] Invalid Interpretation Code [facility] POC Subsection POC User ID [id number] Invalid Interpretation Code [facility] POC Subsection POC Username MICAELAUlises KEMRENNYCydney Invalid Interpretation Code [facility] POC Subsection CHEMISTRYOrdered By: SYSTEM SYSTEM on 12-19-2022 Anion gap [Moles/Vol] 11 mmol/L Normal 6 - 16 mEq/L [facility] Calcium [Mass/Vol] 8.5 mg/dL Low 8.9 - 11. 1 mg/dL [facility] Chloride [Moles/Vol] 103 mmol/L Normal 101 - 1 11 mmol/L [facility] CO2 [Moles/Vol] 28 mmol/L Normal 21 - 31 mmol/L [facility] Creatinine [Mass/Vol] 1.2 mg/dL Normal 0.5 - 1.3 mg/dL [facility] Remisol GFR/1.73 sq M.predicted among non-blacks MDRD (S/P/Bld) [Vol rate/Area] 62 mL/min/1.73 m2 Normal >=59mL/min/ 1.73 m2 [facility] Chem S Glucose [Mass/Vol] 86 mg/dL Normal 55 - 199 mg/dL [facility] Potassium [Moles/Vol] 4.5 mmol/L Normal 3.5 - 5.3 mmol/L [facility] Remisol Sodium [Moles/Vol] 137 mmol/L Normal 135 - 145 mmol/L [facility] Urea nitrogen [Mass/Vol] 35 mg/dL High 5 - 21 mg/dL [facility] Urea nitrogen/Creatinine [Mass ratio] 29 mg/mg High 10 - 20 [facility] Remisol Capillary Glucose POCon 11-22 Glucose [Mass/Vol] 210 mg/dL High 55-99 [facility] Comment on above: Result Comment: Gareth guerrero RN/ Performed By: #### 2 [id number] ####[facility] [address] [place] [address] Glucose [Mass/Vol] 111 mg/dL High 55-99 [facility] Comment on above: Result Comment: Gareth guerrero RN/ Performed By: #### 2 44970548 ####[facility] [address] [place] [address] Glucose [Mass/Vol] 201 mg/dL High 55-99 [facility] Comment on above: Result Comment: Gareth GARDINER Performed By: #### 2 14970862 ####[facility] [address] [place] [address] Glucose [Mass/Vol] 93 mg/dL Normal 55-99 [facility] Comment on above: Result Comment: Gareth guerrero RN/ Performed By: #### 2 58883129 ####[facility] [address] [place] [address] HEMATOLOGYOrdered By: SYSTEM SYSTEM on 12-19-2022 Basophils/100 [...] 6.5 % Normal 4.0 - 14.0 % [facility] Monocytes/Leukocytes Auto (Bld) [Pure # fraction] 0.9 E9/L Normal 0.2 - 1.0 E9/L [facility] Neutrophils/100 WBC (Bld) 81.6 % High 36.0 - 75.0 % [facility] Neutrophils/Leukocytes Auto (Bld) [Pure # fraction] 10.7 E9/L High 2.0 - 7.5 E9/L [facility] HEMATOLOGYOrdered By: Bony Hdez on 12-19-2022 Erythrocyte distribution width (RBC) [Ratio] 15.0 % High 10.9 - 14.2 % [facility] Hematocrit (Bld) [Volume fraction] 38.4 % Normal 37.7 - 49.0 % [facility] Hemoglobin (Bld) [Mass/Vol] 12.7 g/dL Low 13.5 - 17.5 gm/dL [facility] MCH (RBC) [Entitic mass] 27.9 pg Normal 27. 0 - 34.0 pg [facility] MCHC (RBC) [Mass/Vol] 32.9 g/dL Normal 31.4 - 36.0 gm/dL [facility] MCV (RBC) [Entitic vol] 84.8 fL Normal 80.0 - 100.0 fL [facility] Platelet mean volume (Bld) [Entitic vol] 9.5 fL Normal 6.4 - 10.8 fL [facility] Platelets (Bld) [#/Vol] 230.0 E9/L Normal 150. 0 - 500.0 E9/L [facility] RBC (Bld) [#/Vol] 4.5 E12/L Normal 4.3 - 5.9 E12/L [facility] WBC corrected for nucl RBC Auto (Bld) [#/Vol] 13.1 E9/L High 4.0 - 11.0 E9/L [facility] Monitor Recordon 12-19-2022 Monitor Record [id number]#1. 00CD:127 Normal [facility] Monitor Record [id number]#1. 00CD:127 Normal [facility] Progress Note-Physicianon Progress Note-Physician Normal [facility] Comment on above: Result Comment: Elec tronically Signed By: MICHAEL POTTS, Leslie.candice\Date and Time Signed: 12/19/22 09:47 EDT eGFRon 12-19-2022 GFR/1.73 sq M.predicted among non-blacks MDRD (S/P/Bld) [Vol rate/Area] 62 mL/min/1.73 m2 Normal >=59 [facility] Comment on above: Order Comment: Order added by Discern Expert. Result Comment: Recreation Assistant earnest kidney disease could be indicated at eGFR's of less than 60 mL/min/1.73m2. Kidney failure is indicated at less than 15 mL/min/1.73m2. Performed By: #### 1 8013826, 2227097, 2109701, 9013906 ####[facility] [address] [place] [address] Auto Diffon 12-18-2022 Basophils/100 WBC (Bld) 0.4 % Normal 0.0-2.0 [facility] Comment on above: Order Comment: Order Added by Discern Expert. Performed By: #### 2 918575, 7940223 ####[facility] [address] [place] [address] Basophils/Leukocytes Auto (Bld) [Pure # fraction] 0.1 E9/L Normal 0.0-0.2 [facility] Comment on above: Order Comment: Order Added by Discern Expert. Performed By: #### 2 326445, 4420845 ####[facility] [address] [place] [address] Eosinophils/100 WBC (Bld) 2.8 % Normal 0.0-8.0 [facility] Comment on above: Order Comment: Order Added by Discern Expert. Performed By: #### 2 181811, 1821761 ####[facility] [address] [place] [address] Eosinophils/Leukocytes Auto (Bld) [Pure # fraction] 0.4 E9/L Normal 0.0-0.5 [facility] Comment on above: Order Comment: Order Added by Discern Expert. Performed By: #### 2 724954, 0260626 ####[address] [address] Lymphocytes/100 WBC (Bld) 9.0 % Low 14.0-50.0 [facility] Comment on above: Order Comment: Order Added by Discern Expert. Performed By: #### 2 152814, 1505413 ####[address] [address] Lymphocytes/Leukocytes Auto (Bld) [Pure # fraction] 1.3 E9/L Normal 1.0-4.0 [facility] Comment on above: Order Comment: Order Added by Discern Expert. Performed By: #### 2 869571, 7512493 ####[address] [address] Monocytes/100 WBC (Bld) 8.3 % Normal 4.0-14.0 [facility] Comment on above: Order Comment: Order Added by Discern Expert. Performed By: #### 2 140291, 2585764 ####[address] [address] Monocytes/Leukocytes Auto (Bld) [Pure # fraction] 1.3 E9/L High 0.2-1.0 [facility] Comment on above: Order Comment: Order Added by Discern Expert. Performed By: #### 2 228052, 3001324 ####[address] [address] Neutrophils/100 WBC (Bld) 79.5 % High 36.0-75.0 [facility] Comment on above: Order Comment: Order Added by Discern Expert. Performed By: #### 2 295431, 8906165 ####[address] [address] Neutrophils/Leukocytes Auto (Bld) [Pure # fraction] 11.9 E9/L High 2.0-7.5 [facility] Comment on above: Order Comment: Order Added by Discern Expert. Performed By: #### 2 280033, 0065926 ####[facility] [address] [place] [address] Basophils/100 WBC (Bld) 0.6 % Normal 0.0-2.0 [facility] Comment on above: Order Comment: Order Added by Discern Expert. Performed By: #### 1 7137574, 0877862, 53726491, 9180891, 21053686, 58421787, 3160654 ####[address] [place] [address] Basophils/Leukocytes Auto (Bld) [Pure # fraction] 0.1 E9/L Normal 0.0-0.2 [facility] Comment on above: Order Comment: Order Added by Bethany Expert. Performed By: #### 1 [id number], [id number], [id number], [id number] ####[address] [address] Eosinophils/100 WBC (Bld) 2.0 % Normal 0.0-8.0 [facility] Comment on above: Order Comment: Order Added by Discern Expert. Performed By: #### 1 [id number], [id number], [id number], [id number] ####[address] [address] [address] Eosinophils/Leukocytes Auto (Bld) [Pure # fraction] 0.3 E9/L Normal 0.0-0.5 [facility] Comment on above: Order Comment: Order Added by Discern Expert. Performed By: #### 1 5172732, 3803929, 38919926, 1189229, 54294139, 19314621, 6755474 ####[address] [place] [address] Lymphocytes/100 WBC (Bld) 7.6 % Low 14.0-50.0 [facility] Comment on above: Order Comment: Order Added by Discern Expert. Performed By: #### 1 6619954, 0359897, 14256593, 6312834, 21280926, 98649063, 4113359 ####[address] [place] [address] Lymphocytes/Leukocytes Auto (Bld) [Pure # fraction] 1.3 E9/L Normal 1.0-4.0 [facility] Comment on above: Order Comment: Order Added by Discern Expert. Performed By: #### 1 2607626, 3822992, 50882867, 6767463, 62994130, 83250524, 7271005 ####[address] [place] [address] Monocytes/100 WBC (Bld) 7.8 % Normal 4.0-14.0 [facility] Comment on above: Order Comment: Order Added by Discern Expert. Performed By: #### 1 1223329, 2590320, 30405142, 6758773, 78224201, 95959144, 9711274 ####[address] [place] [address] Monocytes/Leukocytes Auto (Bld) [Pure # fraction] 1.3 E9/L High 0.2-1.0 [facility] Comment on above: Order Comment: Order Added by Discern Expert. Performed By: #### 1 2238962, 8225777, 54264483, 0722567, 48444015, 22447951, 0289114 ####[address] [place] [address] Neutrophils/100 WBC (Bld) 82.0 % High 36.0-75.0 [facility] Comment on above: Order Comment: Order Added by Discern Expert. Performed By: #### 1 0106932, 9436727, 43238131, 3594834, 13898052, 78363406, 6546913 ####[address] [place] [address] Neutrophils/Leukocytes Auto (Bld) [Pure # fraction] 13.7 E9/L High 2.0-7.5 [facility] Comment on above: Order Comment: Order Added by Discern Expert. Performed By: #### 1 2742628, 8222141, 99822563, 8774503, 89393574, 86109872, 1890368 ####[facility] [address] [place] [address] BMPon 12-18-2022 Creatinine [Mass/Vol] 1.6 mg/dL High 0.5-1.3 [facility] Comment on above: Performed By: #### 2 685654, 4086901, 5161840925, 80592275, 03295027 ####[facility] [address] [place] [address] Urea nitrogen [Mass/Vol] 47 mg/dL High 5-21 [facility] Comment on above: Performed By: #### 2 228567, 5385083, 0359061814, 40681011, 21388396 ####[facility] [address] [place] [address] Urea nitrogen/Creatinine [Mass ratio] 29 No Units High 10-20 [facility] Comment on above: Performed By: #### 2 823021, 2233493, 6289566131, 87877486, 45929757 ####[facility] [address] [place] [address] Anion gap [Moles/Vol] 12 mmol/L Normal 6-16 [facility] Comment on above: Performed By: #### 2 762019, 1369583, 5637464369, 14293421, 33408090 ####[facility] [address] [place] [address] Calcium [Mass/Vol] 8.7 mg/dL Low 8.9-11.1 [facility] Comment on above: Performed By: #### 2 981205, 2305135, 6208778379, 54403280, 95610233 ####[facility] [address] [place] [address] Chloride [Moles/Vol] 97 mmol/L Low 101-111 [facility] Comment on above: Performed By: #### 2 445487, 9856267, 3284121084, 18595300, 16809206 ####[facility] [address] [place] [address] CO2 [Moles/Vol] 32 mmol/L High 21-31 [facility] Comment on above: Performed By: #### 2 116828, 7322391, 4020215751, 88582466, 53371352 ####[facility] [address] [place] [address] Glucose [Mass/Vol] 131 mg/dL Normal 55-199 [facility] Comment on above: Result Comment: If t his glucose result represents a fasting glucose, interpretation should refer to the following reference range: 55-99 mg/dL Performed By: #### 2 118959, 3491239, 1524656626, 55782061, 55678003 ####[facility] [address] [place] [address] Potassium [Moles/Vol] 3.7 mmol/L Normal 3.5-5.3 [facility] Comment on above: Performed By: #### 2 462684, 3928349, 7755854800, 78642034, 69082972 ####[facility] [address] [place] [address] Sodium [Moles/Vol] 137 mmol/L Normal 135-145 [facility] Comment on above: Performed By: #### 2 503106, 7889198, 7143699884, 73656363, 90273998 ####[facility] [address] [place] [address] Creatinine [Mass/Vol] 1.8 mg/dL High 0.5-1.3 [facility] Comment on above: Performed By: #### 1 2277121, 4823825, 85417994, 4311487, 37077804, 14503382, 2980598 ####[facility] [address] [place] [address] Urea nitrogen [Mass/Vol] 49 mg/dL High 5-21 [facility] Comment on above: Performed By: #### 1 3778169, 2014608, 19054496, 0008366, 03734016, 74099442, 8296682 ####[facility] [address] [place] [address] Urea nitrogen/Creatinine [Mass ratio] 27 No Units High 10-20 [facility] Comment on above: Performed By: #### 1 1726512, 2222755, 56438670, 3491276, 82374962, 81842538, 3496753 ####[facility] [address] [place] [address] Anion gap [Moles/Vol] 18 mmol/L High 6-16 [facility] Comment on above: Performed By: #### 1 1684818, 5640942, 10413418, 8289316, 66333136, 67156242, 0410429 ####[facility] [address] [place] [address] Calcium [Mass/Vol] 9.3 mg/dL Normal 8.9-11.1 [facility] Comment on above: Performed By: #### 1 0725792, 0428796, 83432120, 2571483, 86520654, 10462005, 9352848 ####[facility] [address] [place] [address] Chloride [Moles/Vol] 93 mmol/L Low 101-111 [facility] Comment on above: Performed By: #### 1 0339697, 0754233, 10453447, 8310642, 60160267, 66992955, 1861388 ####[facility] [address] [place] [address] CO2 [Moles/Vol] 29 mmol/L Normal 21-31 [facility] Comment on above: Performed By: #### 1 4664573, 7572220, 91152841, 0462835, 05678277, 43450514, 4901661 ####[facility] [address] [place] [address] Glucose [Mass/Vol] 137 mg/dL Normal 55-199 [facility] Comment on above: Result Comment: If t his glucose result represents a fasting glucose, interpretation should refer to the following reference range: 55-99 mg/dL Performed By: #### 1 0879991, 1871187, 52845512, 1265541, 34179785, 21817546, 8698573 ####[facility] [address] [place] [address] Potassium [Moles/Vol] 4.0 mmol/L Normal 3.5-5.3 [facility] Comment on above: Performed By: #### 1 9809385, 9831788, 77909682, 2246521, 44689494, 07394135, 6807474 ####[facility] [address] [place] [address] Sodium [Moles/Vol] 136 mmol/L Normal 135-145 [facility] Comment on above: Performed By: #### 1 0168275, 7307747, 08987868, 7051077, 90136727, 07865818, 0551699 ####[facility] [address] [place] [address] BNPon 12-18-2022 Int Ctr BNP Pass Normal [facility] Comment on above: Performed By: #### 1 7747219, 0264275, 39292361, 8518037, 07053041, 75555762, 6730299 ####[facility] [address] [place] [address] Natriuretic peptide B (Bld) [Mass/Vol] 219 pg/mL High 5-80 [facility] Comment on above: Performed By: #### 1 4237293, 5787265, 51986268, 1861269, 69306368, 90784775, 8984326 ####[facility] [address] [place] [address] CBC w/ Auto Diffon Erythrocyte distribution width (RBC) [Ratio] 14.8 % High 10.9-14.2 [facility] Comment on above: Performed By: #### 2 101646, 8232413 ####[address] [address] Hematocrit (Bld) [Volume fraction] 37.8 % Normal 37.7-49.0 [facility] Comment on above: Performed By: #### 2 646561, 4114072 ####[address] [address] Hemoglobin (Bld) [Mass/Vol] 12.7 g/dL Low 13.5-17.5 [facility] Comment on above: Performed By: #### 2 729144, 4990485 ####[address] [address] MCH (RBC) [Entitic mass] 28.3 pg Normal 27.0-34.0 [facility] Comment on above: Performed By: #### 2 380382, 5905200 ####[address] [address] MCHC (RBC) [Mass/Vol] 33.6 g/dL Normal 31.4-36.0 [facility] Comment on above: Performed By: #### 2 721455, 5364716 ####[address] [address] MCV (RBC) [Entitic vol] 84.2 fL Normal 80.0-100.0 [facility] Comment on above: Performed By: #### 2 932738, 6899212 ####[address] [address] Platelet mean volume (Bld) [Entitic vol] 9.2 fL Normal 6.4-10.8 [facility] Comment on above: Performed By: #### 2 148874, 3042665 ####[address] [address] Platelets (Bld) [#/Vol] 219.0 E9/L Normal 150.0-500.0 [facility] Comment on above: Performed By: #### 2 209143, 3810178 ####[address] [place] [address] RBC (Bld) [#/Vol] 4.5 E12/L Normal 4.3-5.9 [facility] Comment on above: Performed By: #### 2 005602, 8729494 ####[address] [address] WBC corrected for nucl RBC Auto (Bld) [#/Vol] 15.0 E9/L High 4.0-11.0 [facility] Comment on above: Performed By: #### 2 946274, 8983176 ####[address] Erythrocyte distribution width (RBC) [Ratio] 14.9 % High 10.9-14.2 [facility] Comment on above: Performed By: #### 1 9213530, 0826636, 73683605, 8930453, 71272210, 47096765, 6779840 ####[address] Hematocrit (Bld) [Volume fraction] 42.8 % Normal 37.7-49.0 [facility] Comment on above: Performed By: #### 1 5460025, 8438892, 86627044, 0915244, 84544563, 56345711, 1165649 ####[address] [address] Hemoglobin (Bld) [Mass/Vol] 14.3 g/dL Normal 13.5-17.5 [facility] Comment on above: Performed By: #### 1 2030001, 8714224, 14723063, 2180435, 03291651, 71851139, 4180465 ####[address] [address] MCH (RBC) [Entitic mass] 28.1 pg Normal 27.0-34.0 [facility] Comment on above: Performed By: #### 1 4898544, 6971159, 25495002, 6426353, 12915196, 16281547, 9172340 ####[facility] [address] [place] [address] MCHC (RBC) [Mass/Vol] 33.3 g/dL Normal 31.4-36.0 [facility] Comment on above: Performed By: #### 1 7399745, 6831846, 35876959, 8247284, 63662592, 73008970, 3207329 ####[facility] [address] [place] [address] MCV (RBC) [Entitic vol] 84.3 fL Normal 80.0-100.0 [facility] Comment on above: Performed By: #### 1 0308258, 6047909, 57115100, 4129321, 97550031, 24011118, 4494308 ####[address] [place] [address] Platelet mean volume (Bld) [Entitic vol] 9.8 fL Normal 6.4-10.8 [facility] Comment on above: Performed By: #### 1 0138268, 6723778, 59415983, 6208172, 47694374, 15533193, 3075771 ####[facility] [address] [place] [address] Platelets (Bld) [#/Vol] 234.0 E9/L Normal 150.0-500.0 [facility] Comment on above: Performed By: #### 1 3356742, 8518472, 81419073, 5210410, 02944428, 99654836, 6537561 ####[facility] [address] [place] [address] RBC (Bld) [#/Vol] 5.1 E12/L Normal 4.3-5.9 [facility] Comment on above: Performed By: #### 1 1706599, 3265165, 75628524, 8932023, 53827844, 91812015, 6194676 ####[address] [place] [address] WBC corrected for nucl RBC Auto (Bld) [#/Vol] 16.7 E9/L High 4.0-11.0 [facility] Comment on above: Result Comment: João nunez reviewed by JENNIFER. Performed By: #### 1 1088384, 1837834, 46303102, 4423770, 92811006, 41302820, 4411885 ####[facility] [address] [place] [address] CHEMISTRYOrdered By: SYSTEM SYSTEM on 12-18-2022 Troponin [...] 44 mL/min/1.73 m2 Low >=59mL/min/ 1.73 m2 [facility] Chem S Glucose [Mass/Vol] 131 mg/dL Normal 55 - 199 mg/dL [facility] Remisol Potassium [Moles/Vol] 3.7 mmol/L Normal 3.5 - 5.3 mmol/L [facility] Remisol Procalcitonin 0.09 ng/mL Normal 0.00 - 0.50 ng/mL [facility] Remisol Sodium [Moles/Vol] 137 mmol/L Normal 135 - 145 mmol/L [facility] Remisol Troponin I.cardiac [Mass/Vol] 22.50 pg/mL Normal 15.90 - 38.40 pg/mL [facility] Remisol Urea nitrogen [Mass/Vol] 47 mg/dL High 5 - 21 mg/dL [facility] Remisol Urea nitrogen/Creatinine [Mass ratio] 29 mg/mg High 10 - 20 [facility] Remisol CHEMISTRYOrdered By: Yanet Apodaca on 12-18-2022 Troponin I.cardiac [Mass/Vol] 18.80 pg/mL Normal 15.90 - 38.40 pg/mL [facility] Natriuretic peptide B (Bld) [Mass/Vol] 219 pg/mL High 5 - 80 pg/mL [facility] HemeManSS CKon 12-18-2022 CK [Catalytic activity/Vol] 55 Int._Unit/L Normal 14-261 [facility] Comment on above: Performed By: #### 2 838449, 2707072, 6805222968, 68629803, 28060083 ####[facility] [address] [place] [address] COAGULATIONOrdered By: Rachael Apodaca on 12-18-2022 aPTT Coag (PPP) [Time] 30.6 s Normal 25.1 - 36.5 second(s) [facility] Auto Coag INR Coag (PPP) [Relative time] 1.1 {INR} Invalid Interpretation Code [facility] Auto Coag PT Coag (PPP) [Time] 12.5 s Normal 9.4 - 1 2.5 second(s) [facility] Auto Coag CT Head or Brain w/o Contras ton 12-18-2022 CT Head or Brain w/o Contrast Normal [facility] CT Spine Cervical w/o Contra ston 12-18-2022 CT Spine Cervical w/o Contrast Normal [facility] Capillary Glucose POCon 11-22 Glucose [Mass/Vol] 212 mg/dL High 55-99 [facility] Comment on above: Result Comment: Gareth guerrero RN/ Performed By: #### 2 78806161 ####[facility] [address] [place] [address] Glucose [Mass/Vol] 97 mg/dL Normal 55-99 [facility] Comment on above: Result Comment: Yazmin gregory Meter Performed By: #### 2 41509654 ####[facility] [address] [place] [address] Glucose [Mass/Vol] 119 mg/dL High 55-99 [facility] Comment on above: Result Comment: Gareth GARDINER Performed By: #### 2 65903834 ####[facility] [address] [place] [address] Glucose [Mass/Vol] 131 mg/dL High 55-99 [facility] Comment on above: Result Comment: Gareth GARDINER Performed By: #### 2 93704541 ####[facility] [address] [place] [address] Consent for Treatmenton 11-22 Consent for Treatment [id number]#1. 00CD:127 Normal [facility] ED Clinical Summaryon 2022 ED Clinical Summary Normal [facility] ED Note-Physicianon 12-19-19 23 ED Note-Physician Normal [facility] Comment on above: Result Comment: Elec tronically Signed By: Guilherme POTTS, Malcom\.br\Date and Time Signed: 12/18/22 04:33 EDT ED Patient Education Noteon 12-18-2022 ED Patient Education Note Normal [facility] ED Patient Summaryon 023 ED Patient Summary Normal [facility] ED Traumaon 12-18-2022 ED Trauma [id number]#1. 00CD:127 Normal [facility] HEMATOLOGYOrdered By: SYSTEM SYSTEM [...] 84.2 fL Normal 80.0 - 100.0 fL [facility] HemeAutoSS Platelet mean volume (Bld) [Entitic vol] 9.2 fL Normal 6.4 - 10.8 fL [facility] HemeAutoSS Platelets (Bld) [#/Vol] 219.0 E9/L Normal 150. 0 - 500.0 E9/L [facility] HemeAutoSS RBC (Bld) [#/Vol] 4.5 E12/L Normal 4.3 - 5.9 E12/L [facility] HemeAutoSS WBC corrected for nucl RBC Auto (Bld) [#/Vol] 15.0 E9/L High 4.0 - 11.0 E9/L [facility] HemeAutoSS Insurance Correspondence Off iceon 12-18-2022 Insurance Correspondence Office [id number]#[id number] 0CD:127 Normal [facility] Interdisciplinary Note - Santosh e Manageron 12-18-2022 Interdisciplinary Note - Fuel Buyer [facility] Comment on above: Result Comment: Elec tronically Signed By: Lucero Watson\.br\Date and Time Signed: 12/18/22 14:57 EDT Interdisciplinary Note - Dejuan singon 12-18-2022 Interdisciplinary Note - Nursing Patient he is confused and he does not able to answer my questions. informed staff in [facility] to send current medication list in fax.3N Normal [facility] Interdisciplinary Note - PTo n 12-18-2022 Interdisciplinary Note - PT [facility] Laboratory - Microbiology an d Antimicrobial susceptibilityOrdered By: Karen Vergara on 12-18-2022 Bacteria identified Cx Nom (U) 10,000 cfu/ml Staphylococcus species Continuing incubation [facility] Monitor Recordon 12-18-2022 Monitor Record [id number]#1. 00CD:127 Normal [facility] No Panel InformationOrdered By: Karen Vergara on 12-18-2022 Blood Culture Charcoal Streptococcus spe cies Staphylococcus species coagulase negative In 1 of 2 blood culture bottles drawn. Isolated from aerobic bottle Preliminary gram stain results of gram positive cocci in clusters Result called to Dr. Mckinney by and results read back for confirmation on 12/19/2022 09:39:39 [facility] No Panel InformationOrdered By: [facility] on 12-18-2022 Blood Culture Charcoal No growth at 2 da ys. Final to follow at 7 days. [facility] PT & PTTon 12-18-2022 aPTT Coag [...] the same coagulation reagent and instrumentation as [facility]. Currently there are no coagulation studies available worldwide for children to 14 days, and no normal ranges. Heparin therapeutic range (represented by Anti-Factor Xa activity of 0.2 - 0.4 U/mL) corresponds to PTT of 56.6 - 109.0 sec. Performed By: #### 1 4170698, 9994260, 03513816, 7741819, 14960412, 64866566, 3090604 ####[facility] [address] [place] [address] INR Coag (PPP) [Relative time] 1.1 {INR} Invalid Interpretation Code [facility] Comment on above: Result Comment: INR results are specifically intended to assess patients stabilized on long-term Anticoagulation therapy suggested INR?s ?Less Intensive Anticoagulation? 2.0 ? 3.0Conventional Range 3.0 ? 4.5 Performed By: #### 1 1320643, 1044719, 03791189, 5485673, 76052885, 87708275, 3474189 ####[facility] [address] [place] [address] PT Coag (PPP) [Time] 12.5 second(s) Normal [...] the same coagulation reagent and instrumentation as [facility]. Currently there are no coagulation studies available worldwide for children to 14 days, and no normal ranges. Performed By: #### 1 6536044, 6449673, 55362190, 6394069, 43864570, 99046593, 7188483 ####[facility] [address] [place] [address] Procalcitoninon 12-18-2022 Procalcitonin .09 ng/mL Normal .00-.50 [facility] Comment on above: Result Comment: <0.5 [...] to 24 hours. Performed By: #### 2 823461, 6933694, 5343201777, 92678661, 18657351 ####[facility] [address] [place] [address] RAD - Preliminary Cat Scan R eporton 12-18-2022 RAD - Preliminary Cat Scan Report [id number]#1. 00CD:127 Normal [facility] Troponin 0 Hr.on 12-18-2022 [...] Luis, December 2017) Performed By: #### 1 4243038, 0427484, 37055655, 7069885, 27591799, 92851964, 9637442 ####[facility] [address] [place] [address] Troponin 3 Hr.on 12-18-2022 Troponin I.cardiac [Mass/Vol] 18.80 pg/mL Normal 15.90-38.40 [facility] Comment on above: Result Comment: The 95% CI (Confidence Interval) PPV (Positive Predictive Value) for myocardial infarction in females is 38 pg/mL, in males 51 pg/mL. The results should be used in conjunction with clinical conditions of myocardial infarction.(Platypus Platform High Sensitivity Troponin I Instructions For Use, [employer], December 2017) Performed By: #### 1 3697450 ####[facility] [address] [place] [address] Troponin 6 Hr.on 12-18-2022 Troponin I.cardiac [Mass/Vol] 22.50 pg/mL Normal 15.90-38.40 [facility] Comment on above: Result Comment: The 95% CI (Confidence Interval) PPV (Positive Predictive Value) for myocardial infarction in females is 38 pg/mL, in males 51 pg/mL. The results should be used in conjunction with clinical conditions of myocardial infarction.(Platypus Platform High Sensitivity Troponin I Instructions For Use, [employer], December 2017) Performed By: #### 2 102248, 8872431, 9157199243, 30661563, 51542604 ####[facility] [address] [place] [address] Troponin 9 Hr.on 12-18-2022 Troponin I.cardiac [Mass/Vol] 18.90 pg/mL Normal 15.90-38.40 [facility] Comment on above: Result Comment: The 95% CI (Confidence Interval) PPV (Positive Predictive Value) for myocardial infarction in females is 38 pg/mL, in males 51 pg/mL. The results should be used in conjunction with clinical conditions of myocardial infarction.(Access High Sensitivity Troponin I Instructions For Use, [employer], December 2017) Performed By: #### 1 0713362 ####[facility] [address] [place] [address] UA With Cult Reflexon 2022 Bacteria LM Ql (Urine sed) TRACE Normal Trace [facility] Comment on above: Performed By: #### 1 1772177, 6482624 ####[facility] [address] [place] [address] Bilirubin Ql (U) Negative Normal Negative [facility] Comment on above: Performed By: #### 1 1613391, 9890693 ####[facility] [address] [place] [address] Clarity (U) CLEAR Normal Clear [facility] Comment on above: Performed By: #### 1 8856194, 5020408 ####[facility] [address] [place] [address] Color (U) YELLOW Normal Yellow [facility] Comment on above: Performed By: #### 1 4017622, 1449953 ####[facility] [address] [place] [address] Epithelial cells.squamous LM.HPF (Urine sed) [#/Area] 0-2 Normal 0-2 [facility] Comment on above: Performed By: #### 1 0804596, 2119868 ####[facility] [address] [place] [address] Glucose Test strip (U) [Mass/Vol] Negative Normal Negative [facility] Comment on above: Performed By: #### 1 0851447, 0234900 ####[facility] [address] [facility] [address] Hemoglobin Ql (U) TRACE Abnormal Negative [facility] Comment on above: Performed By: #### 1 7644665, 5561632 ####[facility] [address] [facility] [address] Ketones (U) [Mass/Vol] Negative Normal Negative [facility] Comment on above: Performed By: #### 1 5102353, 9349656 ####[facility] [address] [facility] [place] [address] [place]leton.plasma/Nettleton.R BC (Bld) [Mass ratio] 0-3 Normal 0-3 [facility] Comment on above: Performed By: #### 1 1072484, 9428918 ####[address] [address] Nitrite Ql (U) Negative Normal Negative [facility] Comment on above: Performed By: #### 1 4881497, 4236438 ####[address] [address] pH (U) 6.5 [pH] Invalid Interpretation Code 5.0-9.0 [facility] Comment on above: Performed By: #### 1 7293258, 0589558 ####[address] [address] Protein (U) [Mass/Vol] Negative Normal Negative [facility] Comment on above: Performed By: #### 1 9581151, 5698000 ####[address] [address] Specific gravity (U) [Rel density] 1.020 Invalid Interpretation Code 1.005-1.030 [facility] Comment on above: Performed By: #### 1 1781325, 8840986 ####[place] [address] Type of Urine collection method Clean Catch Normal [facility] Comment on above: Performed By: #### 1 5116566, 6121616 ####[address] [address] Urobilinogen Qn (U) 0.2 {Lei'U}/dL Normal 0.0-1.0 [facility] Comment on above: Performed By: #### 1 1523075, 2348850 ####[address] [address] WBC Auto Ql (U) 3+ Abnormal Negative [facility] Comment on above: Performed By: #### 1 1053056, 7255629 ####[address] [address] WBC LM.HPF (Urine sed) [#/Area] /[HPF] Abnormal 0-5 [facility] Comment on above: Performed By: #### 1 0263680, 2321035 ####[facility] [address] [place] [address] URINALYSISOrdered By: Houston Castillo on 12-18-2022 Bacteria [...] PM) Normal Negative [facility] UA Auto SS Nettleton.plasma/[place]leton.R BC (Bld) [Mass ratio] 0-3 /HPF Normal [...] Desc Clean Catch (12/18/22 4:45 PM) Normal [facility] UA Auto SS Urobilinogen Qn (U) 0.5406526 {Lei'U}/dL Normal 0.0 - 1.0 EU/dL [facility] UA Auto SS WBC Auto Ql (U) 3+ *ABN* (12/18/22 4:45 PM) Invalid Interpretation Code Negative [facility] UA Auto SS WBC LM.HPF (Urine sed) [#/Area] /[HPF] Invalid Interpretation Code 0-5/HPF [facility] UA Auto SS XR Chest Single Viewon 12-18 XR Chest Single View Normal [facility] XR Pelvis 1 or 2 Viewson XR Pelvis 1 or 2 Views Normal [facility] eGFRon 12-18-2022 GFR/1.73 sq M.predicted among non-blacks MDRD (S/P/Bld) [Vol rate/Area] 44 mL/min/1.73 m2 Low >=59 [facility] Comment on above: Order Comment: Order added by Discern Expert. Result Comment: Recreation Assistant earnest kidney disease could be indicated at eGFR's of less than 60 mL/min/1.73m2. Kidney failure is indicated at less than 15 mL/min/1.73m2. Performed By: #### 2 570175, 2533209, [id number], 26133094, 02636733 ####[facility] [address] [place] [address] GFR/1.73 sq M.predicted among non-blacks MDRD (S/P/Bld) [Vol rate/Area] 38 mL/min/1.73 m2 Low >=59 [facility] Comment on above: Order Comment: Order added by Discern Expert. Result Comment: Recreation Assistant earnest kidney disease could be indicated at eGFR's of less than 60 mL/min/1.73m2. Kidney failure is indicated at less than 15 mL/min/1.73m2. Performed By: #### 1 9607036, 5642974, 12836191, 9777548, 57957933, 08839028, 0511883 ####[facility] [address] [place] [address] Capillary Glucose POCon 11-22 Glucose [Mass/Vol] 165 mg/dL High 55-99 [facility] Comment on above: Result Comment: Yazmin bri Meter Performed By: #### 2 [id number] ####[facility] [address] [place] [address] Glucose [Mass/Vol] 184 mg/dL High [address] Comment on above: Performed By: #### 2 [id number] ####[facility] [address] [facility] [place] [address] Capillary Glucose POCon 11-22 Glucose [Mass/Vol] 184 mg/dL High [address] [place] [address] Comment on above: Result Comment: Yazmin bri Meter Performed By: #### 2 [id number] ####[facility] [address] [place] [address] Glucose [Mass/Vol] 141 mg/dL High [address] [place] [address] Comment on above: Result Comment: Yazmin bri Meter Performed By: #### 2 [id number] ####[facility] [address] [place] [address] Capillary Glucose POCon 11-22 Glucose [Mass/Vol] 183 mg/dL [address] Comment on above: Result Comment: Yazmin bri Meter Performed By: #### 2 [id number] ####[facility] [address] [place] [address] Glucose [Mass/Vol] 147 mg/dL [address] Comment on above: Result Comment: Yazmin bri Meter Performed By: #### 2 [id number] ####[facility] [address] [place] [address] Capillary Glucose POCon 11-22 Glucose [Mass/Vol] 188 mg/dL High [address] [place] [address] Comment on above: Result Comment: Yazmin bri Meter Performed By: #### 2 [id number] ####[facility] Fxpvr[address]937 [facility] [address] Glucose [Mass/Vol] 162 mg/dL [address] Comment on above: Result Comment: Yazmin bri Meter Performed By: #### 2 61063893 ####[facility] [address]406 [facility] [address] Auto Diffon 12-13-2022 Basophils/100 WBC (Bld) 0.0 % Normal 0.0-2.0 [facility] Comment on above: Order Comment: Order Added by Discern Expert. Performed By: #### 1 5740066, 3078788, 275520145, 8671001, 6974304 ####[address] [place] [address] Basophils/Leukocytes Auto (Bld) [Pure # fraction] 0.0 E9/L Normal 0.0-0.2 [facility] Comment on above: Order Comment: Order Added by Discern Expert. Performed By: #### 1 3735172, 8890007, 887547758, 1446450, 8282142 ####[address] [address] Eosinophils/100 WBC (Bld) 7.6 % Normal 0.0-8.0 [facility] Comment on above: Order Comment: Order Added by Discern Expert. Performed By: #### 1 4031255, 7761340, 940371992, 2281853, 4730940 ####[address] [address] Eosinophils/Leukocytes Auto (Bld) [Pure # fraction] 1.0 E9/L High 0.0-0.5 [facility] Comment on above: Order Comment: Order Added by Discern Expert. Performed By: #### 1 2495096, 0495820, 127722755, 8217126, 9404148 ####[address] [address] Lymphocytes/100 WBC (Bld) 10.3 % Low 14.0-50.0 [facility] Comment on above: Order Comment: Order Added by Bethany Expert. Performed By: #### 1 5761764, 8138757, 722172264, 0002018, 2141803 ####[address] [address] Lymphocytes/Leukocytes Auto (Bld) [Pure # fraction] 1.3 E9/L Normal 1.0-4.0 [facility] Comment on above: Order Comment: Order Added by Discern Expert. Performed By: #### 1 9989217, 2761569, 388611846, 7899281, 5773839 ####[address] [place] [address] Monocytes/100 WBC (Bld) 9.6 % Normal 4.0-14.0 [facility] Comment on above: Order Comment: Order Added by Discern Expert. Performed By: #### 1 5269761, 5052417, 983556563, 2036586, 5445769 ####[facility] [address] [place] [address] Monocytes/Leukocytes Auto (Bld) [Pure # fraction] 1.2 E9/L High 0.2-1.0 [facility] Comment on above: Order Comment: Order Added by Discern Expert. Performed By: #### 1 4507861, 8487008, 136690238, 5628773, 8472925 ####[address] [address] Neutrophils/100 WBC (Bld) 72.5 % Normal 36.0-75.0 [facility] Comment on above: Order Comment: Order Added by Discern Expert. Performed By: #### 1 2274952, 2151344, 193662236, 6392540, 7530709 ####[address] [place] [address] Neutrophils/Leukocytes Auto (Bld) [Pure # fraction] 9.0 E9/L High 2.0-7.5 [facility] Comment on above: Order Comment: Order Added by Discern Expert. Performed By: #### 1 0255400, 9959811, 471144172, 5330867, 5602939 ####[address] [address] CBC w/ Auto Diffon 3 Erythrocyte distribution width (RBC) [Ratio] 15.0 % High 10.9-14.2 [facility] Comment on above: Performed By: #### 1 6616465, 7161151, 893473347, 2415789, 0599829 ####[facility] [address] [place] [address] Hematocrit (Bld) [Volume fraction] 45.2 % Normal 37.7-49.0 [facility] Comment on above: Performed By: #### 1 3288954, 4160727, 611712859, 2684765, 1190729 ####[address] [place] [address] Hemoglobin (Bld) [Mass/Vol] 14.8 g/dL Normal 13.5-17.5 [facility] Comment on above: Performed By: #### 1 3287471, 5639415, 285881945, 6481539, 0552197 ####[address] [address] MCH (RBC) [Entitic mass] 27.8 pg Normal 27.0-34.0 [facility] Comment on above: Performed By: #### 1 8138810, 6536582, 470970174, 0258416, 2612585 ####[address] [address] MCHC (RBC) [Mass/Vol] 32.7 g/dL Normal 31.4-36.0 [facility] Comment on above: Performed By: #### 1 2244175, 1018099, 771626652, 2260962, 0412908 ####[address] [address] MCV (RBC) [Entitic vol] 85.0 fL Normal 80.0-100.0 [facility] Comment on above: Performed By: #### 1 3091672, 7077514, 922862621, 4882880, 8065075 ####[address] [place] [address] Platelet mean volume (Bld) [Entitic vol] 9.4 fL Normal 6.4-10.8 [facility] Comment on above: Performed By: #### 1 7996208, 8866934, 076056789, 7463565, 6670903 ####[facility] [address] [place] [address] Platelets (Bld) [#/Vol] 193.0 E9/L Normal 150.0-500.0 [facility] Comment on above: Performed By: #### 1 7324662, 5515835, 451982489, 8563184, 7724964 ####[address] [place] [address] RBC (Bld) [#/Vol] 5.3 E12/L Normal 4.3-5.9 [facility] Comment on above: Performed By: #### 1 3808334, 4877905, 780311401, 1664576, 8740799 ####[address] [address] WBC corrected for nucl RBC Auto (Bld) [#/Vol] 12.5 E9/L High 4.0-11.0 [facility] Comment on above: Performed By: #### 1 9145787, 4741376, 633973567, 6242520, 6823034 ####[address] [place] [address] CMPon 12-13-2022 Albumin [Mass/Vol] 3.6 g/dL Normal 3.3-5.0 [facility] Comment on above: Performed By: #### 1 7673969, 6397516, 982485471, 0866656, 3314745 ####[address] [place] [address] Albumin/Globulin (S) [Mass conc ratio] 1.0 Low 1.1-2.2 [facility] Comment on above: Performed By: #### 1 5122234, 0369339, 568529538, 5422713, 4759270 ####[address] [place] [address] ALP [Catalytic activity/Vol] 49 Int._Unit/L Normal 21-98 [facility] Comment on above: Performed By: #### 1 1146179, 1900890, 026019455, 5545476, 8472122 ####[facility] [address] [place] [address] ALT No additional P-5'-P [Catalytic activity/Vol] 21 Int._Unit/L Normal 6-46 [facility] Comment on above: Performed By: #### 1 5411626, 7655204, 148339659, 7652892, 6450578 ####[facility] [address] [place] [address] Anion gap [Moles/Vol] 16 mmol/L Normal 6-16 [facility] Comment on above: Performed By: #### 1 6256922, 2038988, 414194468, 6644644, 1170239 ####[address] [place] [address] AST [Catalytic activity/Vol] 21 Int._Unit/L Normal 5-43 [facility] Comment on above: Performed By: #### 1 7087525, 5379088, 828935820, 5320820, 2722111 ####[facility] [address] [place] [address] Bilirubin [Mass/Vol] 0.6 mg/dL Normal 0.0-1.1 [facility] Comment on above: Performed By: #### 1 1852221, 0729236, 050645620, 5895744, 1097402 ####[address] [place] [address] Calcium [Mass/Vol] 9.4 mg/dL Normal 8.9-11.1 [facility] Comment on above: Performed By: #### 1 3639113, 7256714, 298840860, 7284666, 0944448 ####[address] [place] [address] Chloride [Moles/Vol] 99 mmol/L Low 101-111 [facility] Comment on above: Performed By: #### 1 3688215, 6623330, 695709013, 5770043, 0784892 ####[address] [place] [address] CO2 [Moles/Vol] 31 mmol/L Normal 21-31 [facility] Comment on above: Performed By: #### 1 5422932, 0953547, 641098398, 5013336, 3008002 ####[facility] [address] [place] [address] Creatinine [Mass/Vol] 1.5 mg/dL High 0.5-1.3 [facility] Comment on above: Performed By: #### 1 5479850, 3762383, 055132587, 0866818, 3164390 ####[facility] [address] [place] [address] Globulin (S) [Mass/Vol] 3.7 g/dL Normal 1.4-4.0 [facility] Comment on above: Performed By: #### 1 4224753, 0113018, 873209857, 9267914, 9975110 ####[facility] [address] [place] [address] Glucose [Mass/Vol] 128 mg/dL Normal 55-199 [facility] Comment on above: Result Comment: If t his glucose result represents a fasting glucose, interpretation should refer to the following reference range: 55-99 mg/dL Performed By: #### 1 6481405, 9813538, 666684402, 0639712, 5851224 ####[facility] [address] [place] [address] Potassium [Moles/Vol] 4.1 mmol/L Normal 3.5-5.3 [facility] Comment on above: Performed By: #### 1 5035175, 6469484, 046060709, 0745411, 6249131 ####[facility] [address] [place] [address] Protein [Mass/Vol] 7.3 g/dL Normal 6.0-7.8 [facility] Comment on above: Performed By: #### 1 4101397, 0771421, 231481934, 3920199, 8062857 ####[facility] [address] [place] [address] Sodium [Moles/Vol] 142 mmol/L Normal 135-145 [facility] Comment on above: Performed By: #### 1 2626785, 9059970, 897115435, 6829631, 8344935 ####[facility] [address] [place] [address] Urea nitrogen [Mass/Vol] 57 mg/dL High 5-21 [facility] Comment on above: Performed By: #### 1 9366223, 0747874, 833635507, 6388465, 3074059 ####[facility] [address] [place] [address] Urea nitrogen/Creatinine [Mass ratio] 38 No Units High 10-20 [facility] Comment on above: Performed By: #### 1 2278619, 6302002, 351132227, 3452577, 6045237 ####[facility] [address] [place] [address] Capillary Glucose POCon 11-22 Glucose [Mass/Vol] 256 mg/dL High 55-99 [facility] Comment on above: Result Comment: Yazmin bri Meter Performed By: #### 2 13484867 ####[facility] [address] [place] [address] Glucose [Mass/Vol] 152 mg/dL High 55-99 [facility] Comment on above: Result Comment: Yazmin bri Meter Performed By: #### 2 87516290 ####[facility] [address] [place] [address] [id number] 12-13-2022 HbA1c (Bld) [Mass fraction] 6.5 % High <=5.9 [facility] Comment on above: Performed By: #### 1 6584743, 0739906, 137665922, 3968147, 5261057 ####[facility] [address] [place] [address] eGFRon 12-13-2022 GFR/1.73 sq M.predicted among non-blacks MDRD (S/P/Bld) [Vol rate/Area] 47 mL/min/1.73 m2 Low >=59 [facility] Comment on above: Order Comment: Order added by Discern Expert. Result Comment: Recreation Assistant earnest kidney disease could be indicated at eGFR's of less than 60 mL/min/1.73m2. Kidney failure is indicated at less than 15 mL/min/1.73m2. Performed By: #### 1 8816464, 3919377, 269405173, 2152252, 8285992 ####[facility] [address] [place] [address] Capillary Glucose POCon 11-22 Glucose [Mass/Vol] 212 mg/dL High [address] [place] [address] Comment on above: Result Comment: Yazmin bri Meter Performed By: #### 2 95258003 ####[facility] [address] [place] [address] Glucose [Mass/Vol] 161 mg/dL [address] Comment on above: Result Comment: Yazmin bri Meter Performed By: #### 2 97181854 ####[facility] [address] [place] [address] Capillary Glucose POCon 11-22 Glucose [Mass/Vol] 206 mg/dL [address] Comment on above: Result Comment: Yazmin bri Meter Performed By: #### 2 89870583 ####[facility] [address] [place] [address] Glucose [Mass/Vol] 152 mg/dL High [address] [place] [address] Comment on above: Result Comment: Yazmin bri Meter Performed By: #### 2 84675065 ####[facility] [address] [place] [address] Capillary Glucose POCon 11-22 Glucose [Mass/Vol] 140 mg/dL [address] Comment on above: Result Comment: Yazmin bri Meter Performed By: #### 2 74908594 ####[facility] [address] [place] [address] Capillary Glucose POCon 11-21 Glucose [Mass/Vol] 243 mg/dL High [address] [place] [address] Comment on above: Result Comment: Yazmin bri Meter Performed By: #### 2 52128489 ####[facility] [address] [place] [address] Glucose [Mass/Vol] 157 mg/dL High [address] [place] [address] Comment on above: Result Comment: Yazmin bri Meter Performed By: #### 2 30261123 ####[facility] [address] [place] [address] Capillary Glucose POCon 11-21 Glucose [Mass/Vol] 181 mg/dL [address] Comment on above: Result Comment: Yazmin bri Meter Performed By: #### 2 16240606 ####[facility] [address] [place] [address] Capillary Glucose POCon 11-21 Glucose [Mass/Vol] 149 mg/dL High [address] [place] [address] Comment on above: Result Comment: Yazmin bri Meter Performed By: #### 2 19946754 ####[facility] [address] [place] [address] Glucose [Mass/Vol] 164 mg/dL [address] Comment on above: Result Comment: Yazmin bri Meter Performed By: #### 2 00453343 ####[facility] [address] [place] [address] Capillary Glucose POCon 11-21 Glucose [Mass/Vol] 265 mg/dL High [address] [place] [address] Comment on above: Result Comment: Yazmin bri Meter Performed By: #### 2 69375408 ####[facility] [address] [place] [address] Glucose [Mass/Vol] 129 mg/dL [address] Comment on above: Result Comment: Yazmin bri Meter Performed By: #### 2 42101604 ####[facility] [address] [place] [address] Family Medicine Office/Clini c Noteon 12-06-2022 Family Medicine Office/Clinic Note Normal [facility] Comment on above: Result Comment: Elec tronically Signed By: SHAISTA POTTS, Donta\.br\Date and Time Signed: 12/06/22 21:11 EDT Capillary Glucose POCon 11-21 Glucose [Mass/Vol] 196 mg/dL High 55-99 [facility] Comment on above: Result Comment: Yazmin bri Meter Performed By: #### 2 04013873 ####[facility] [address] [place] [address] Glucose [Mass/Vol] 159 mg/dL High 55-99 [facility] Comment on above: Result Comment: Yazmin bri Meter Performed By: #### 2 69099091 ####[facility] [address]cs[address] [place] [address] Capillary Glucose POCon 11-21 Glucose [Mass/Vol] 195 mg/dL High 55-99 [facility] Comment on above: Result Comment: Gareth GARDINER Performed By: #### 2 33521168 ####[facility] [address] [place] [address] Insurance Correspondence Off iceon 12-04-2022 Insurance Correspondence Office [id number]#1. 00CD:127 Normal [facility] Physician Orderon 12-03-2022 Physician Order [id number]#1. 00CD:127 Normal [facility] CHEMISTRYOrdered By: Lab ROP User on 12-02-2022 Glucose [Mass/Vol] 227 mg/dL High 55 - 99 mg/dL [facility] POC Subsection Comment on above: Result Comment: Gareth GARDINER POC Device SN [id number] Invalid Interpretation Code FT POC Subsection POC User ID [id number] Invalid Interpretation Code FT POC Subsection POC Username KINGSTON JAMISON Invalid Interpretation Code [facility] POC Subsection Glucose [Mass/Vol] 127 mg/dL High 55 - 99 mg/dL [facility] POC Subsection Comment on above: Result Comment: Gareth guerrero RN/ POC Device SN [id number] Invalid Interpretation Code [facility] POC Subsection POC User ID [id number] Invalid Interpretation Code [facility] POC Subsection POC Username TOYIN REYNOLDS Invalid Interpretation Code [facility] POC Subsection Capillary Glucose POCon 11-21 Glucose [Mass/Vol] 227 mg/dL High 55-99 [facility] Comment on above: Result Comment: Gareth GARDINER Performed By: #### 2 08648600 ####[facility] [address] [place] [address] Glucose [Mass/Vol] 127 mg/dL High 55-99 [facility] Comment on above: Result Comment: Gareth GARDINER Performed By: #### 2 74382539 ####[facility] [address] [place] [address] Coding Queryon 12-02-2022 Coding Query Normal [facility] Discharge Note-Nursingon Discharge Note-Nursing Normal [facility] Inpatient Clinical Summaryon 12-02-2022 Inpatient Clinical Summary [facility] Inpatient Patient Summaryon 12-02-2022 Inpatient Patient Summary [facility] Insurance Correspondence Off iceon 12-02-2022 Insurance Correspondence Office [id number]#1.00 CD:127 Normal [facility] Interdisciplinary Note - Santosh e Manageron 12-02-2022 Interdisciplinary Note - Fuel Buyer [facility] Comment on above: Result Comment: Elec tronically Signed By: Dank HAYDEN, Lisa\.candice\Date and Time Signed: 12/02/22 09:31 EDT Monitor Recordon 12-02-2022 Monitor Record [id number]#1. 00CD:127 Normal [facility] Physician Orderon 12-02-2022 Physician Order [id number]#1. 00CD:127 Normal [facility] Progress Note-Physicianon Progress Note-Physician Normal [facility] Comment on above: Result Comment: Elec tronically Signed By: Adeline COLEMAN\.br\Date and Time Signed: 12/01/22 18:43 EDT\.br\Electronically Co-Signed By: Juan Hdz DO.br\Date and Time Co-Signed: 12/02/22 07:20 EDT Transfer Documentson 023 Transfer Documents [id number]#1. 00CD:127 Normal [facility] BMPon 12-01-2022 Anion gap [Moles/Vol] 13 mmol/L Normal 6-16 [facility] Comment on above: Performed By: #### 1 9958003, 9200471, 8029049, 6576033 ####[facility] [address] [place] [address] Calcium [Mass/Vol] 9.1 mg/dL Normal 8.9-11.1 [facility] Comment on above: Performed By: #### 1 5739472, 6867741, 6918839, 9921985 ####[facility] [address] [place] [address] Chloride [Moles/Vol] 102 mmol/L Normal 101-111 [facility] Comment on above: Performed By: #### 1 9095445, 5315483, 6732214, 0797448 ####[facility] [address] [place] [address] CO2 [Moles/Vol] 28 mmol/L Normal 21-31 [facility] Comment on above: Performed By: #### 1 5926204, 9727587, 8622810, 2946851 ####[facility] [address] [place] [address] Creatinine [Mass/Vol] 1.3 mg/dL Normal 0.5-1.3 [facility] Comment on above: Performed By: #### 1 1846294, 7877725, 7971505, 7752135 ####[facility] [address] [place] [address] Glucose [Mass/Vol] 97 mg/dL Normal 55-199 [facility] Comment on above: Result Comment: If t his glucose result represents a fasting glucose, interpretation should refer to the following reference range: 55-99 mg/dL Performed By: #### 1 2108969, 6993197, 4036590, 0320527 ####[facility] [address] [place] [address] Potassium [Moles/Vol] 4.6 mmol/L Normal 3.5-5.3 [facility] Comment on above: Performed By: #### 1 6863662, 0561700, 7225405, 3313243 ####[facility] [address] [place] [address] Sodium [Moles/Vol] 138 mmol/L Normal 135-145 [facility] Comment on above: Performed By: #### 1 4747349, 7245349, 0180599, 3354731 ####[facility] [address] [place] [address] Urea nitrogen [Mass/Vol] 24 mg/dL High 5-21 [facility] Comment on above: Performed By: #### 1 0466811, 6738493, 2887638, 5424566 ####[facility] [address] [place] [address] Urea nitrogen/Creatinine [Mass ratio] 18 No Units Normal 10-20 [facility] Comment on above: Performed By: #### 1 1241091, 3986981, 3693710, 6644279 ####[facility] [address] [place] [address] CHEMISTRYOrdered By: Lab ROP User on 12-01-2022 Glucose [Mass/Vol] 114 mg/dL High 55 - 99 mg/dL [facility] POC Subsection Comment on above: Result Comment: Gareth guerrero RN/ POC Device SN [id number] Invalid Interpretation Code [facility] POC Subsection POC User ID [id number] Invalid Interpretation Code [facility] POC Subsection POC Username MORGANISAURO MedinaIE Invalid Interpretation Code [facility] POC Subsection CHEMISTRYOrdered By: SYSTEM SYSTEM on 12-01-2022 Anion gap [Moles/Vol] 13 mmol/L Normal 6 - 16 mEq/L [facility] Remisol Calcium [Mass/Vol] 9.1 mg/dL Normal 8.9 - 11. 1 mg/dL [facility] Chloride [Moles/Vol] 102 mmol/L Normal 101 - 1 11 mmol/L [facility] Rem[facility] CK [Catalytic activity/Vol] 211 [iU]/d Normal 14 - 261 Int._Unit/L [facility] Remisol CO2 [Moles/Vol] 28 mmol/L Normal 21 - 31 mmol/L [facility] Remisol Creatinine [Mass/Vol] 1.3 mg/dL Normal 0.5 - 1.3 mg/dL [facility] Remisol GFR/1.73 sq M.predicted among non-blacks MDRD (S/P/Bld) [Vol rate/Area] 56 mL/min/1.73 m2 Low >=59mL/min/ 1.73 m2 [facility] Chem S Glucose [Mass/Vol] 97 mg/dL Normal 55 - 199 mg/dL [facility] Remisol Magnesium [Mass/Vol] 2.1 mg/dL Normal 1.3 - 2 .4 mg/dL [facility] Remisol Potassium [Moles/Vol] 4.6 mmol/L Normal 3.5 - 5.3 mmol/L [facility] Remisol Sodium [Moles/Vol] 138 mmol/L Normal 135 - 145 mmol/L [facility] Urea nitrogen [Mass/Vol] 24 mg/dL High 5 - 21 mg/dL [facility] Remisol Urea nitrogen/Creatinine [Mass ratio] 18 mg/mg Normal 10 - 20 [facility] Remisol CKon 12-01-2022 CK [Catalytic activity/Vol] 211 Int._Unit/L Normal 14-261 [facility] Comment on above: Performed By: #### 1 7090535, 5896469, 9912781, 2319893 ####[facility] [address] [place] [address] Capillary Glucose POCon 11-21 Glucose [Mass/Vol] 114 mg/dL High 55-99 [facility] Comment on above: Result Comment: Gareth guerrero RN/ Performed By: #### 2 [id number] ####[facility] [address] [place] [address] Glucose [Mass/Vol] 193 mg/dL High 55-99 [facility] Comment on above: Result Comment: Gareth guerrero RN/ Performed By: #### 2 34022591 ####[facility] [address] [place] [address] Glucose [Mass/Vol] 203 mg/dL High 55-99 [facility] Comment on above: Result Comment: Gareth guerrero RN/ Performed By: #### 2 88206149 ####[facility] [address] [place] [address] Glucose [Mass/Vol] 110 mg/dL High 55-99 [facility] Comment on above: Result Comment: Gareth guerrero RN/ Performed By: #### 2 [id number] ####[facility] [address] [place] [address] Interdisciplinary Note - Santosh e Manageron 12-01-2022 Interdisciplinary Note - Fuel Buyer Pt is asleep in bed, no family present. Pt is accepted to [facility] side, pending precert at this time. Contact information provided and white board updated, CRM following Normal [facility] Comment on above: Result Comment: Elec tronically Signed By: Dank HAYDEN, Lisa\.candice\Date and Time Signed: 12/01/22 08:20 EDT Ionized Calciumon 12-01-2022 Calcium.ionized ISE [Mass/Vol] 4.8 mg/dL Invalid Interpretation Code 4.5-5.6 [facility] Comment on above: Result Comment: Perf ormed at: [facility] [address] [place], [place] [id number] PhD Michael Cortes Performed By: #### 2 335348, 6914491, 2004150, 94184883, 15444395, 2853527, 17501007, 4338910, 82725037, 482120161, 5097054, 6136444 ####[facility] [address] [place] [address] Magnesiumon 12-01-2022 Magnesium [Mass/Vol] 2.1 mg/dL Normal 1.3-2.4 [facility] Comment on above: Performed By: #### 1 0561408, 1375104, 2062676, 6993270 ####[facility] [address] [place] [address] Progress Note-Physicianon Progress Note-Physician Normal [facility] Comment on above: Result Comment: Elec tronically Signed By: Pao POTTS, Lizeth\.br\Date and Time Signed: 12/01/22 12:41 EDT XR Abdomen 1 Viewon 12-02-19 23 XR Abdomen 1 View Normal [facility] eGFRon 12-01-2022 GFR/1.73 sq M.predicted among non-blacks MDRD (S/P/Bld) [Vol rate/Area] 56 mL/min/1.73 m2 Low >=59 [facility] Comment on above: Order Comment: Order added by Discern Expert. Result Comment: Recreation Assistant earnest kidney disease could be indicated at eGFR's of less than 60 mL/min/1.73m2. Kidney failure is indicated at less than 15 mL/min/1.73m2. Performed By: #### 1 0521852, 8462334, 2156147, 5224111 ####[facility] [address] [place] [address] BMPon 11-30-2022 Anion gap [Moles/Vol] 11 mmol/L Normal 6-16 [facility] Comment on above: Performed By: #### 2 034040, 0320727, 06146884 ####[facility] [address] [place] [address] Calcium [Mass/Vol] 9.0 mg/dL Normal 8.9-11.1 [facility] Comment on above: Performed By: #### 2 210507, 7359079, 05111122 ####[facility] [address] [place] [address] Chloride [Moles/Vol] 102 mmol/L Normal 101-111 [facility] Comment on above: Performed By: #### 2 999286, 6168009, 34001188 ####[facility] [address] [facility] [address] CO2 [Moles/Vol] 31 mmol/L Normal 21-31 [facility] Comment on above: Performed By: #### 2 419325, 9811063, 99242352 ####[facility] [address] [facility] [address] Creatinine [Mass/Vol] 1.1 mg/dL Normal 0.5-1.3 [facility] Comment on above: Performed By: #### 2 683195, 9786769, 62657675 ####[facility] [address] [place] [address] Glucose [Mass/Vol] 114 mg/dL Normal 55-199 [facility] Comment on above: Result Comment: If t his glucose result represents a fasting glucose, interpretation should refer to the following reference range: 55-99 mg/dL Performed By: #### 2 996217, 4474776, 59200864 ####[facility] [address] [place] [address] Potassium [Moles/Vol] 3.4 mmol/L Low 3.5-5.3 [facility] Comment on above: Performed By: #### 2 621089, 1465164, 56534800 ####[facility] [address] [facility] [address] Sodium [Moles/Vol] 141 mmol/L Normal 135-145 [facility] Comment on above: Performed By: #### 2 404766, 8886418, 10851668 ####[facility] [address] [place] [address] Urea nitrogen [Mass/Vol] 23 mg/dL High 5-21 [facility] Comment on above: Performed By: #### 2 172212, 6271222, 84757012 ####[facility] [address] [place] [address] Urea nitrogen/Creatinine [Mass ratio] 21 No Units High 10-20 [facility] Comment on above: Performed By: #### 2 983738, 8772471, 68861539 ####[facility] [address] [place] [address] CHEMISTRYOrdered By: SYSTEM SYSTEM on 11-30-2022 Anion gap [Moles/Vol] 11 mmol/L Normal 6 - 16 mEq/L [facility] Remisol Calcium [Mass/Vol] 9.0 mg/dL Normal 8.9 - 11. 1 mg/dL [facility] Chloride [Moles/Vol] 102 mmol/L Normal 101 - 1 11 mmol/L [facility] CO2 [Moles/Vol] 31 mmol/L Normal 21 - 31 mmol/L [facility] Remisol Creatinine [Mass/Vol] 1.1 mg/dL Normal 0.5 - 1.3 mg/dL [facility] Remisol GFR/1.73 sq M.predicted among non-blacks MDRD (S/P/Bld) [Vol rate/Area] 69 mL/min/1.73 m2 Normal >=59mL/min/ 1.73 m2 [facility] Chem S Glucose [Mass/Vol] 114 mg/dL Normal 55 - 199 mg/dL [facility] Magnesium [Mass/Vol] 1.8 mg/dL Normal 1.3 - 2 .4 mg/dL [facility] Remisol Potassium [Moles/Vol] 3.4 mmol/L Low 3.5 - 5.3 mmol/L [facility] Remisol Sodium [Moles/Vol] 141 mmol/L Normal 135 - 145 mmol/L [facility] Remisol Urea nitrogen [Mass/Vol] 23 mg/dL High 5 - 21 mg/dL [facility] Remisol Urea nitrogen/Creatinine [Mass ratio] 21 mg/mg High 10 - 20 [facility] Remisol Capillary Glucose POCon 11-21 Glucose [Mass/Vol] 194 mg/dL High 55-99 [facility] Comment on above: Result Comment: Gareth guerrero RN/ Performed By: #### 2 [id number] ####[facility] [address] [place] [address] Glucose [Mass/Vol] 96 mg/dL Normal 55-99 [facility] Comment on above: Performed By: #### 2 82976543 ####[facility] [address] [place] [address] Glucose [Mass/Vol] 130 mg/dL High 55-99 [facility] Comment on above: Result Comment: Gareth guerrero RN/ Performed By: #### 2 46983980 ####[facility] [address] [place] [address] Glucose [Mass/Vol] 113 mg/dL High 55-99 [facility] Comment on above: Result Comment: Gareth guerrero RN/ Performed By: #### 2 55742408 ####[facility] [address] [place] [address] Echo Transthoracic Completeo n 11-30-2022 Echo Transthoracic Complete Normal [facility] Insurance Correspondence Off iceon 11-30-2022 Insurance Correspondence Office [id number] [id number] 0CD:127 Normal [facility] Interdisciplinary Note - Santosh e Manageron 11-30-2022 Interdisciplinary Note - Fuel Buyer [facility] Comment on above: Result Comment: Elec tronically Signed By: Dank HAYDEN, Lisa\.br\Date and Time Signed: 11/30/22 10:48 EDT Magnesiumon 11-30-2022 Magnesium [Mass/Vol] 1.8 mg/dL Normal 1.3-2.4 [facility] Comment on above: Performed By: #### 2 840788, 8326960, 17479528 ####[facility] [address] [place] [address] Message from Medicareon 11-21 Message from Medicare [id number] 0CD:127 Normal [facility] Progress Note-Physicianon Progress Note-Physician Normal [facility] Comment on above: Result Comment: Elec tronically Signed By: Joanie Jiménez MD\.br\Date and Time Signed: 11/30/22 15:13 EDT Progress Note-Physician Normal [facility] Comment on above: Result Comment: Elec tronically Signed By: Pao POTTS, Lizeth\.br\Date and Time Signed: 11/30/22 14:52 EDT UA With Cult Reflexon 2022 Bacteria LM Ql (Urine sed) TRACE Normal Trace [facility] Comment on above: Order Comment: Urina ry Catheter Insertion triggered Urinalysis With Culture Reflex order by discern. Performed By: #### 1 0061238 ####[facility] [address] [place] [address] Bilirubin Ql (U) Negative Normal Negative [facility] Comment on above: Order Comment: Urina ry Catheter Insertion triggered Urinalysis With Culture Reflex order by discern. Performed By: #### 1 6094274 ####[facility] [address] [place] [address] Clarity (U) CLEAR Normal Clear [facility] Comment on above: Order Comment: Urina ry Catheter Insertion triggered Urinalysis With Culture Reflex order by discern. Performed By: #### 1 4870246 ####[address] [address] Color (U) YELLOW Normal Yellow [facility] Comment on above: Order Comment: Urina ry Catheter Insertion triggered Urinalysis With Culture Reflex order by discern. Performed By: #### 1 6867932 ####[address] [address] Epithelial cells.squamous LM.HPF (Urine sed) [#/Area] 0-2 Normal 0-2 [facility] Comment on above: Order Comment: Urina ry Catheter Insertion triggered Urinalysis With Culture Reflex order by discern. Performed By: #### 1 7827739 ####[facility] [address] [place] [address] Glucose Test strip (U) [Mass/Vol] Negative Normal Negative [facility] Comment on above: Order Comment: Urina ry Catheter Insertion triggered Urinalysis With Culture Reflex order by discern. Performed By: #### 1 5190293 ####[facility] [address] [place] [address] Hemoglobin Ql (U) Negative Normal Negative [facility] Comment on above: Order Comment: Urina ry Catheter Insertion triggered Urinalysis With Culture Reflex order by discern. Performed By: #### 1 1804361 ####[address] [address] Ketones (U) [Mass/Vol] Negative Normal Negative [facility] Comment on above: Order Comment: Urina ry Catheter Insertion triggered Urinalysis With Culture Reflex order by discern. Performed By: #### 1 0691403 ####[address] [address] [place].plasma/[place]leton.R BC (Bld) [Mass ratio] 0-3 Normal 0-3 [facility] Comment on above: Order Comment: Urina ry Catheter Insertion triggered Urinalysis With Culture Reflex order by discern. Performed By: #### 1 3614571 ####[address] [address] Nitrite Ql (U) Negative Normal Negative [facility] Comment on above: Order Comment: Urina ry Catheter Insertion triggered Urinalysis With Culture Reflex order by discern. Performed By: #### 1 0101371 ####[address] [address] pH (U) 6.0 [pH] Invalid Interpretation Code 5.0-9.0 [facility] Comment on above: Order Comment: Urina ry Catheter Insertion triggered Urinalysis With Culture Reflex order by discern. Performed By: #### 1 8931834 ####[address] [address] Protein (U) [Mass/Vol] Negative Normal Negative [facility] Comment on above: Order Comment: Urina ry Catheter Insertion triggered Urinalysis With Culture Reflex order by discern. Performed By: #### 1 9808066 ####[address] [address] Specific gravity (U) [Rel density] 1.010 Invalid Interpretation Code 1.005-1.030 [facility] Comment on above: Order Comment: Urina ry Catheter Insertion triggered Urinalysis With Culture Reflex order by discern. Performed By: #### 1 7370924 ####[address] [address] Type of Urine collection method Red Normal [facility] Comment on above: Order Comment: Urina ry Catheter Insertion triggered Urinalysis With Culture Reflex order by discern. Performed By: #### 1 3782061 ####[address] [address] Urobilinogen Qn (U) 0.2 {Lei'U}/dL Normal 0.0-1.0 [facility] Comment on above: Order Comment: Urina ry Catheter Insertion triggered Urinalysis With Culture Reflex order by discern. Performed By: #### 1 6877199 ####[place] [address] WBC Auto Ql (U) Negative Normal Negative [facility] Comment on above: Order Comment: Urina ry Catheter Insertion triggered Urinalysis With Culture Reflex order by discern. Performed By: #### 1 9560242 ####[place] [address]457 WBC casts LM.LPF (Urine sed) [#/Area] 0-3 Normal [facility] Comment on above: Order Comment: Urina ry Catheter Insertion triggered Urinalysis With Culture Reflex order by discern. Performed By: #### 1 6619052 ####[address] [address] WBC LM.HPF (Urine sed) [#/Area] 0-5 Normal 0-5 [facility] Comment on above: Order Comment: Urina ry Catheter Insertion triggered Urinalysis With Culture Reflex order by discern. Performed By: #### 1 5408136 ####[address] [address] URINALYSISOrdered By: Houston Castillo on 11-30-2022 Bacteria LM Ql (Urine sed) Trace /HPF Normal Trace/HPF [facility] UA Auto SS Bilirubin Ql (U) Negative (11/30/22 11:00 AM) Normal Negative [facility] UA Auto SS Clarity (U) Clear (11/30/22 11:00 AM) Normal Clear [facility] UA Auto SS Color (U) Yellow (11/30/22 [...] AM) Normal Negative [facility] UA Auto SS [place]leton.plasma/N[place]leton.R BC (Bld) [Mass ratio] 0-3 /HPF Normal [...] [facility] UA Auto SS Urobilinogen Qn (U) 0.3588540 {Lei'U}/dL Normal 0.0 - 1.0 EU/dL [facility] UA Auto SS WBC Auto Ql (U) Negative (11/30/22 11:00 AM) Normal Negative [facility] UA Auto SS WBC casts LM.LPF (Urine sed) [#/Area] 0-3 (11/30/22 11:00 AM) Normal [facility] UA Auto SS WBC LM.HPF (Urine sed) [#/Area] 0-5 /HPF Normal 0-5/HPF [facility] UA Auto SS eGFRon 11-30-2022 GFR/1.73 sq M.predicted among non-blacks MDRD (S/P/Bld) [Vol rate/Area] 69 mL/min/1.73 m2 Normal >=59 [facility] Comment on above: Order Comment: Order added by Discern Expert. Result Comment: Recreation Assistant earnest kidney disease could be indicated at eGFR's of less than 60 mL/min/1.73m2. Kidney failure is indicated at less than 15 mL/min/1.73m2. Performed By: #### 2 239414, 3091860, 86425130 ####[facility] [address] [place] [address] Auto Diffon 11-29-2022 Basophils/100 WBC (Bld) 0.5 % Normal 0.0-2.0 [facility] Comment on above: Order Comment: Order Added by Bethany Expert. Performed By: #### 2 697969, 1756433, 6303366, 92754095, 99018646, 5867871, 21878118, 2050410, 28046731, 308588135, 5194658, 0481187 ####[place] [address] [place] [address] Basophils/Leukocytes Auto (Bld) [Pure # fraction] 0.0 E9/L Normal 0.0-0.2 [facility] Comment on above: Order Comment: Order Added by Bethany Expert. Performed By: #### 2 778805, 6888096, 3273059, 28272696, 69566957, 7643755, 30454481, 2436351, 63284293, 325625373, 7710852, 6437129 ####[facility] [address] [place] [address] Eosinophils/100 WBC (Bld) 8.4 % High 0.0-8.0 [facility] Comment on above: Order Comment: Order Added by Bethany Expert. Performed By: #### 2 039656, 5771441, 2173431, 78364379, 71594701, 1173810, 72992821, 4376111, 13295561, 662428168, 4071073, 5575814 ####[facility] [address] [place] [address] Eosinophils/Leukocytes Auto (Bld) [Pure # fraction] 0.6 E9/L High 0.0-0.5 [facility] Comment on above: Order Comment: Order Added by Discern Expert. Performed By: #### 2 489153, 2564435, 7618373, 03415476, 21886016, 6741299, 49605279, 8005945, 47879347, 461793865, 0763868, 9201772 ####[facility] [address] [place] [address] Lymphocytes/100 WBC (Bld) 15.8 % Normal 14.0-50.0 [facility] Comment on above: Order Comment: Order Added by Discern Expert. Performed By: #### 2 645563, 8056033, 1242491, 19611859, 65644611, 3406391, 61355634, 7485954, 60265293, 979929724, 7714346, 4544431 ####[address] [address] Lymphocytes/Leukocytes Auto (Bld) [Pure # fraction] 1.2 E9/L Normal 1.0-4.0 [facility] Comment on above: Order Comment: Order Added by Discern Expert. Performed By: #### 2 325183, 3729112, 6185576, 32207318, 86143982, 6154438, 72912023, 6209654, 60275035, 281393427, 5678442, 8036875 ####[facility] [address] [place] [address] Monocytes/100 WBC (Bld) 8.4 % Normal 4.0-14.0 [facility] Comment on above: Order Comment: Order Added by Discern Expert. Performed By: #### 2 664287, 0804084, 0921169, 04461518, 84155654, 1589537, 70730486, 7014121, 47467761, 937505521, 4577947, 3557856 ####[facility] [address] [place] [address] Monocytes/Leukocytes Auto (Bld) [Pure # fraction] 0.6 E9/L Normal 0.2-1.0 [facility] Comment on above: Order Comment: Order Added by Discern Expert. Performed By: #### 2 002904, 0070298, 6156954, 56355565, 99723699, 6360394, 15516518, 1214790, 20942757, 402519209, 0210283, 0062463 ####[facility] [address] [place] [address] Neutrophils/100 WBC (Bld) 66.9 % Normal 36.0-75.0 [facility] Comment on above: Order Comment: Order Added by Discern Expert. Performed By: #### 2 064566, 2795632, 0807062, 57268245, 26209808, 3889327, 78850532, 7700826, 20486836, 518421507, 1249218, 9014276 ####[facility] [address] [place] [address] Neutrophils/Leukocytes Auto (Bld) [Pure # fraction] 5.0 E9/L Normal 2.0-7.5 [facility] Comment on above: Order Comment: Order Added by Discern Expert. Performed By: #### 2 817675, 4952751, 1849962, 55018751, 65485013, 1535871, 17109013, 8421752, 17542123, 240697000, 3172197, 2330130 ####[facility] [address] [place] [address] BMPon 11-29-2022 Anion gap [Moles/Vol] 13 mmol/L Normal 6-16 [facility] Comment on above: Performed By: #### 2 906181, 6448134, 2017388, 76973767, 63592245, 0254629, 17243371, 7547205, 10677328, 390802902, 0525992, 6998928 ####[facility] [address] [place] [address] Calcium [Mass/Vol] 9.1 mg/dL Normal 8.9-11.1 [facility] Comment on above: Performed By: #### 2 406994, 5947580, 6482752, 16840048, 14584921, 7559929, 52599948, 8443672, 65339912, 622685042, 8481820, 0874361 ####[facility] [address] [place] [address] Chloride [Moles/Vol] 102 mmol/L Normal 101-111 [facility] Comment on above: Performed By: #### 2 505798, 0647562, 0946386, 03364242, 57874295, 2312113, 11027863, 9773303, 47948424, 838295109, 9413383, 3169632 ####[facility] [address] [place] [address] CO2 [Moles/Vol] 29 mmol/L Normal 21-31 [facility] Comment on above: Performed By: #### 2 661016, 7266487, 3601119, 13002451, 64266377, 8104082, 17522871, 4403363, 86726329, 884771829, 2961281, 4808059 ####[facility] [address] [place] [address] Creatinine [Mass/Vol] 1.1 mg/dL Normal 0.5-1.3 [facility] Comment on above: Performed By: #### 2 894352, 4602050, 2771823, 99052173, 17711616, 9580585, 60639413, 7501744, 57022996, 530635181, 9770128, 1499309 ####[facility] [address] [place] [address] Glucose [Mass/Vol] 95 mg/dL Normal 55-199 [facility] Comment on above: Result Comment: If t his glucose result represents a fasting glucose, interpretation should refer to the following reference range: 55-99 mg/dL Performed By: #### 2 443597, 4609964, 4763187, 13500113, 60936697, 3463913, 06469881, 4339919, 50599203, 528813616, 3777213, 6208102 ####[facility] [address] [place] [address] Potassium [Moles/Vol] 3.9 mmol/L Normal 3.5-5.3 [facility] Comment on above: Performed By: #### 2 102946, 4671257, 4591954, 88810872, 20447753, 5975531, 40007003, 0872597, 39072409, 862081283, 3857574, 6544344 ####[facility] [address] [place] [address] Sodium [Moles/Vol] 140 mmol/L Normal 135-145 [facility] Comment on above: Performed By: #### 2 355073, 6909720, 6677534, 00038981, 04523803, 6448054, 61791303, 9866600, 39295042, 478898921, 3045687, 2632253 ####[facility] [address] [place] [address] Urea nitrogen [Mass/Vol] 16 mg/dL Normal 5-21 [facility] Comment on above: Performed By: #### 2 681771, 9996925, 1464548, 39922497, 38071769, 1560543, 26076435, 6665647, 81876130, 247248607, 2681080, 2546315 ####[facility] [address] [place] [address] Urea nitrogen/Creatinine [Mass ratio] 14 No Units Normal 10-20 [facility] Comment on above: Performed By: #### 2 383124, 7187055, 7247568, 17746180, 79954440, 0123006, 31878013, 4909331, 70360156, 222556827, 4102659, 6964340 ####[facility] [address] [place] [address] BNPon 11-29-2022 Natriuretic peptide B (Bld) [Mass/Vol] 855 pg/mL High 5-80 [facility] Comment on above: Performed By: #### 2 576971, 3656061, 4959238, 56080870, 80034487, 7673644, 28910933, 5029331, 79098296, 615061262, 6851045, 0189684 ####[facility] [address] [place] [address] CBC w/ Auto Diffon 3 Erythrocyte distribution width (RBC) [Ratio] 14.9 % High 10.9-14.2 [facility] Comment on above: Performed By: #### 2 904248, 5463699, 0495498, 15398834, 24305956, 1441046, 40727845, 1075840, 17133604, 828661838, 0646217, 3394093 ####[place] [address] [place] [address] Hematocrit (Bld) [Volume fraction] 38.1 % Normal 37.7-49.0 [facility] Comment on above: Performed By: #### 2 673213, 5578612, 2188610, 52196823, 68528285, 4990010, 27207417, 4224502, 30327527, 681898473, 0096677, 2135873 ####[place] [place] [address] Hemoglobin (Bld) [Mass/Vol] 12.8 g/dL Low 13.5-17.5 [facility] Comment on above: Performed By: #### 2 845409, 1152352, 1212391, 29140970, 44084059, 9377145, 41686324, 9690763, 37033200, 540457581, 9161766, 2620134 ####[facility] [address] [place] [address] MCH (RBC) [Entitic mass] 29.0 pg Normal 27.0-34.0 [facility] Comment on above: Performed By: #### 2 194156, 7134211, 9327151, 67631224, 41444260, 2314713, 97366653, 7354698, 29691843, 256303188, 2908999, 3733175 ####[facility] [address] [place] [address] MCHC (RBC) [Mass/Vol] 33.7 g/dL Normal 31.4-36.0 [facility] Comment on above: Performed By: #### 2 658459, 4348955, 9581433, 27601029, 75393325, 5865972, 61026180, 2047013, 77336244, 001131292, 7190513, 9096133 ####[facility] [address] [place] [address] MCV (RBC) [Entitic vol] 86.1 fL Normal 80.0-100.0 [facility] Comment on above: Performed By: #### 2 613590, 2453318, 3019412, 43210584, 23901392, 9904274, 68195856, 3761431, 45174511, 506494770, 8656319, 7045953 ####[address] [address] Platelet mean volume (Bld) [Entitic vol] 10.9 fL High 6.4-10.8 [facility] Comment on above: Performed By: #### 2 839806, 7416676, 2921296, 02337448, 25821957, 6949062, 99718497, 5282304, 11723219, 574460437, 9132118, 2315560 ####[facility] [address] [place] [address] Platelets (Bld) [#/Vol] 189.0 E9/L Normal 150.0-500.0 [facility] Comment on above: Performed By: #### 2 620372, 2672504, 3962102, 95576883, 16363697, 7524815, 45115009, 1299316, 49629784, 130240445, 5973136, 5898098 ####[address] [address] RBC (Bld) [#/Vol] 4.4 E12/L Normal 4.3-5.9 [facility] Comment on above: Performed By: #### 2 579480, 6494796, 2848596, 33442579, 34961723, 2784126, 20858126, 8992342, 84866535, 447501014, 4380273, 3139075 ####[facility] [address] [place] [address] WBC corrected for nucl RBC Auto (Bld) [#/Vol] 7.4 E9/L Normal 4.0-11.0 [facility] Comment on above: Performed By: #### 2 351044, 0403554, 7905972, 19279568, 01927235, 6940583, 88353694, 1826650, 42640987, 626891734, 7446105, 6879591 ####[facility] [address] [place] [address] CHEMISTRYOrdered By: SYSTEM SYSTEM on 11-29-2022 Albumin [...] 37.00 pg/mL Normal 15.90 - 38.40 pg/mL [facility] Remisol CHEMISTRYOrdered By: Natalie Soto on 11-29-2022 Natriuretic peptide B (Bld) [Mass/Vol] 855 pg/mL High 5 - 80 pg/mL [facility] HemeManSS CHEMISTRYOrdered By: Marian peterson DomainUser on 11-29-2022 Calcium.ionized ISE [Mass/Vol] 4.8 mg/dL Invalid Interpretation Code 4.5-5.6mg/d L [facility] SendOutsSS Comment on above: Result Comment: Perf ormed at: [facility] [address] [id number] PhD [facility]20[facility] CK [Catalytic activity/Vol] 1096 Int._Unit/L Abnormal 14-261 [facility] Comment on above: Result Comment: Crit ical Result verified by repeat analysis\Critical Result [id number] Called to MANAS BARBA AT by AMY JOHNSON and read back for confirmation at 11/29/2022 06:40:15 Performed By: #### 2 883889, 8495551, 7395665, 91677375, 19740132, 2542671, 43235890, 0985679, 41651508, 918770403, 9188362, 0341770 ####[facility] [address] [place] [address] CT Abdomen/Pelvis w/ Contras ton 11-29-2022 CT Abdomen/Pelvis w/ Contrast Normal [facility] CT Head or Brain w/o Contras ton 11-29-2022 CT Head or Brain w/o Contrast Normal [facility] CTA Cheston 11-29-2022 CTA Chest Normal [facility] Capillary Glucose POCon Glucose [Mass/Vol] 122 mg/dL High 55-99 [facility] Comment on above: Result Comment: Gareth guerrero RN/ Performed By: #### 2 32843795 ####[facility] [address] [place] [address] Glucose [Mass/Vol] 174 mg/dL High 55-99 [facility] Comment on above: Performed By: #### 2 37530655 ####[facility] [address] [place] [address] Glucose [Mass/Vol] 107 mg/dL High 55-99 [facility] Comment on above: Result Comment: Gareth GARDINER Performed By: #### 2 21186376 ####[facility] [address] [place] [address] Consultation Noteon 11-30-19 Consultation Note Normal [facility] Comment on above: Result Comment: Elec tronically Signed By: New Velazquez MD\Toshabr\Date and Time Signed: 11/29/22 14:44 EDT ED Clinical Summaryon 2022 ED Clinical Summary Normal [facility] ED Note-Physicianon 11-30-19 ED Note-Physician Normal [facility] Comment on above: Result Comment: Elec tronically Signed By: Elkin Hitchcock DObr\Date and Time Signed: 11/28/22 22:32 EDT ED [...] 86.1 fL Normal 80.0 - 100.0 fL [facility] HemeAutoSS Platelet mean volume (Bld) [Entitic vol] 10.9 fL High 6.4 - 10.8 fL [facility] HemeAutoSS Platelets (Bld) [#/Vol] 189.0 E9/L Normal 150. 0 - 500.0 E9/L [facility] HemeAutoSS RBC (Bld) [#/Vol] 4.4 E12/L Normal 4.3 - 5.9 E12/L [facility] HemeAutoSS Sed Rate Automated 17 mm/h Normal 0 - 19 mm/hr [facility] HemeAutoSS WBC corrected for nucl RBC Auto (Bld) [#/Vol] 7.4 E9/L Normal 4.0 - 11.0 E9/L [facility] HemeAutoSS Hep Func Panelon 11-29-2022 Albumin [Mass/Vol] 3.6 g/dL Normal 3.3-5.0 [facility] Comment on above: Performed By: #### 2 628066, 0877384, 6868081, 06909873, 68426650, 0342218, 98748331, 8256027, 51963141, 524662118, 3511709, 6890223 ####[facility] [address] [place] [address] Albumin/Globulin (S) [Mass conc ratio] 1.2 Normal 1.1-2.2 [facility] Comment on above: Performed By: #### 2 589309, 9995620, 1371052, 39198917, 54546360, 3416659, 68130883, 1336240, 92042746, 414981624, 6017949, 0327329 ####[facility] [address] [place] [address] ALP [Catalytic activity/Vol] 40 Int._Unit/L Normal 21-98 [facility] Comment on above: Performed By: #### 2 596575, 2398982, 7907220, 75936692, 39012359, 3420470, 38058324, 2439446, 90336181, 358814056, 3682309, 3772379 ####[facility] [address] [place] [address] ALT No additional P-5'-P [Catalytic activity/Vol] 17 Int._Unit/L Normal 6-46 [facility] Comment on above: Performed By: #### 2 809785, 5715186, 9272609, 12808269, 90644475, 1770157, 78827896, 3311104, 99347708, 916262507, 2748558, 3043605 ####[facility] [address] [place] [address] AST [Catalytic activity/Vol] 33 Int._Unit/L Normal 5-43 [facility] Comment on above: Performed By: #### 2 824318, 1712256, 0776060, 93685111, 23330446, 6977295, 01339182, 6034593, 11396371, 689094691, 2100594, 8941357 ####[facility] [address] [place] [id number] Bilirubin [Mass/Vol] 1.1 mg/dL Normal 0.0-1.1 [facility] Comment on above: Performed By: #### 2 465618, 4759858, 6692934, 08114956, 52998125, 5605632, 52280893, 3774655, 17302063, 230029961, 5153657, 1110692 ####[facility] [address] [place] [address] Bilirubin.direct [Mass/Vol] 0.2 mg/dL Normal 0.1-0.4 [facility] Comment on above: Performed By: #### 2 599980, 6358453, 5058290, 44598819, 84924392, 5049153, 87265445, 0885260, 92167796, 987940377, 7340519, 4531652 ####[facility] [address] [place] [address] Bilirubin.indirect [Mass or moles/Vol] 0.9 mg/dL Normal 0.1-0.9 [facility] Comment on above: Performed By: #### 2 354292, 2010243, 8776445, 36458714, 92654004, 1978505, 20496755, 4881752, 43809107, 020753292, 8531276, 4091663 ####[facility] [address] [place] [address] Globulin (S) [Mass/Vol] 3.1 g/dL Normal 1.4-4.0 [facility] Comment on above: Performed By: #### 2 772851, 1862334, 5545443, 16034563, 17799292, 2461351, 00409995, 2638086, 93713633, 278473263, 3790473, 3422737 ####[facility] [address] [place] [address] Protein [Mass/Vol] 6.7 g/dL Normal 6.0-7.8 [facility] Comment on above: Performed By: #### 2 563244, 4196237, 7997846, 63031135, 97452153, 7548533, 01151715, 7126317, 50822139, 269894823, 1346148, 2220097 ####[facility] [address] [place] [address] Interdisciplinary Note - Santosh e Manageron 11-29-2022 Interdisciplinary Note - Fuel Buyer Normal [facility] Comment on above: Result Comment: Elec tronically Signed By: Jose HAYDEN, Norma\.br\Date and Time Signed: 11/29/22 15:07 EDT Lipid Panelon 11-29-2022 Cholesterol [Mass/Vol] 114 mg/dL Low 120-200 [facility] Comment on above: Performed By: #### 2 573734, 2199567, 9545883, 29703260, 32500011, 0372832, 49159405, 9636672, 88259475, 756216026, 5631491, 9188184 ####[facility] [address] [place] [address] Cholesterol in HDL [Mass/Vol] 50 mg/dL Invalid Interpretation Code [facility] Comment on above: Result Comment: HDL > or equal to 60 mg/dL: Low cardiovascular riskHDL < 40 mg/dL : High cardiovascular risk Performed By: #### 2 690100, 4579748, 6695813, 27067212, 84375767, 9256425, 17231168, 3892794, 13641950, 618389069, 6834862, 9136026 ####[facility] [address] [place] [address] Cholesterol in LDL [Mass/Vol] 43 mg/dL Normal <=129 [facility] Comment on above: Performed By: #### 2 712856, 8688229, 4056872, 08351064, 64729048, 5120027, 29100196, 6260528, 71920123, 281705357, 1468177, 5593908 ####[facility] [address] [place] [address] Cholesterol in VLDL [Mass/Vol] 14 mg/dL Normal 7-40 [facility] Comment on above: Performed By: #### 2 775120, 9981581, 2428715, 04086348, 24170692, 3872420, 76248724, 5372645, 24283836, 216893000, 2377724, 2861346 ####[facility] [address] [place] [address] Triglyceride [Mass/Vol] 72 mg/dL Normal <=149 [facility] Comment on above: Performed By: #### 2 327341, 7789336, 9414082, 48857905, 02899790, 3763765, 11050221, 1020750, 85000680, 516161131, 6295161, 1366886 ####[facility] [address] [place] [address] Monitor Recordon 11-29-2022 Monitor Record [id number]#1. 00CD:127 Normal [facility] Monitor Record [id number]#1. 00CD:127 Normal [facility] Monitor Record [id number]#1. 00CD:127 Normal [facility] Monitor Record [id number]#1. 00CD:127 Normal [facility] Monitor Record [id number]#1. 00CD:127 Normal [facility] Monitor Record [id number]#1. 00CD:127 Normal [facility] Monitor Record [id number]#1. 00CD:127 Normal [facility] Monitor Record [id number]#1. 00CD:127 Normal [facility] Progress Note-Physicianon Progress Note-Physician Normal [facility] Comment on above: Result Comment: Elec tronically Signed By: Alex STEIN, New Jacome.br\Date and Time Signed: 11/29/22 10:54 EDT RAD - Preliminary Cat Scan R eporton 11-29-2022 RAD - Preliminary Cat Scan Report [id number]#1 .00CD:127 Normal [facility] Sed Rate Automatedon 023 Sed Rate Automated 17 mm/hr Normal 0-19 [facility] Comment on above: Performed By: #### 2 266325, 4668040, 0522954, 06675768, 59258778, 8884369, 00998111, 3131785, 01533705, 735443900, 7920549, 4542473 ####[facility] [address] [place] [address] TSH With T4fr Reflexon 11-29 TSH Qn 3.43 m[IU]/L Normal 0.34-5.60 [facility] Comment on above: Performed By: #### 2 757030, 8202727, 5960955, 38775589, 93675629, 1720102, 07370014, 5344432, 82263907, 703111594, 8913615, 8260442 ####[facility] [address] [place] [address] Troponin 6 Hr.on 11-29-2022 Troponin I.cardiac [Mass/Vol] 32.60 pg/mL Normal 15.90-38.40 [facility] Comment on above: Result Comment: The 95% CI (Confidence Interval) PPV (Positive Predictive Value) for myocardial infarction in females is 38 pg/mL, in males 51 pg/mL. The results should be used in conjunction with clinical conditions of myocardial infarction.(Platypus Platform High Sensitivity Troponin I Instructions For Use, [employer], December 2017) Performed By: #### 1 2456458 ####[facility] [address] [place] [address] Troponin 9 Hr.on 11-29-2022 Troponin I.cardiac [Mass/Vol] 37.00 pg/mL Normal 15.90-38.40 [facility] Comment on above: Result Comment: The 95% CI (Confidence Interval) PPV (Positive Predictive Value) for myocardial infarction in females is 38 pg/mL, in males 51 pg/mL. The results should be used in conjunction with clinical conditions of myocardial infarction.(Platypus Platform High Sensitivity Troponin I Instructions For Use, [employer], December 2017) Performed By: #### 1 0333424 ####[facility] [address] [place] [address] Vitamin D 25 Hydroxyon 11-29 25-hydroxyvitamin D3 [Mass/Vol] ng/mL Low 30.0-100.0 [facility] Comment on above: Result Comment: Vit palacios D deficiency has been defined as a level of serum 25-OH vitamin D less than 20 ng/mL (1,2) by the [place] of Medicine and an Endocrine Society practice guideline. The Endocrine Society further defined vitamin D insufficiency as a level between 21 and 29 ng/mL (2). 1. IOM ([place] of Medicine). 2010. Dietary reference intakes for calcium and D. [place]: The National Academies Press. 2. Patricia MF, [place], Reji PETERS, et al. Evaluation, treatment, and prevention of vitamin D deficiency: an Endocrine Society clinical practice guideline. JCEM. 2010; 96 (7):1911-30. Performed By: #### 2 876219, 5427467, 6913403, 74354383, 26286947, 7781471, 65259913, 5071047, 53136335, 947472121, 9998850, 4162285 ####[facility] [address] [place] [address] eGFRon 11-29-2022 GFR/1.73 sq M.predicted among non-blacks MDRD (S/P/Bld) [Vol rate/Area] 69 mL/min/1.73 m2 Normal >=59 [facility] Comment on above: Order Comment: Order added by Discern Expert. Result Comment: Recreation Assistant earnest kidney disease could be indicated at eGFR's of less than 60 mL/min/1.73m2. Kidney failure is indicated at less than 15 mL/min/1.73m2. Performed By: #### 2 376653, 8885567, 7397941, 62425716, 33457164, 0505452, 87737545, 8137107, 91400484, 501175570, 4241238, 7256727 ####[facility] [address] [place] [address] Auto Diffon 11-28-2022 Basophils/100 WBC (Bld) 0.7 % Normal 0.0-2.0 [facility] Comment on above: Order Comment: Order Added by Discern Expert. Performed By: #### 1 0433279, 0517197, 7873501, 5456230, 91358620 ####[facility] [address] [place] [address] Basophils/Leukocytes Auto (Bld) [Pure # fraction] 0.0 E9/L Normal 0.0-0.2 [facility] Comment on above: Order Comment: Order Added by Discern Expert. Performed By: #### 1 0532433, 3872462, 1992155, 9787503, 27576694 ####[facility] [address] [place] [address] Eosinophils/100 WBC (Bld) 7.4 % Normal 0.0-8.0 [facility] Comment on above: Order Comment: Order Added by Discern Expert. Performed By: #### 1 9825397, 6498618, 6626460, 8638165, 76326550 ####[facility] [address] [place] [address] Eosinophils/Leukocytes Auto (Bld) [Pure # fraction] 0.5 E9/L Normal 0.0-0.5 [facility] Comment on above: Order Comment: Order Added by Discern Expert. Performed By: #### 1 6681688, 4709257, 1034743, 4813464, 66323749 ####[place] [address] [place] [address] Lymphocytes/100 WBC (Bld) 9.3 % Low 14.0-50.0 [facility] Comment on above: Order Comment: Order Added by Discern Expert. Performed By: #### 1 0001191, 5833846, 0131299, 6169222, 53544497 ####[place] [address] [place] [address] Lymphocytes/Leukocytes Auto (Bld) [Pure # fraction] 0.7 E9/L Low 1.0-4.0 [facility] Comment on above: Order Comment: Order Added by Bethany Expert. Performed By: #### 1 8961343, 7600363, 7856944, 3268912, 34780040 ####[address] [address] Monocytes/100 WBC (Bld) 6.6 % Normal 4.0-14.0 [facility] Comment on above: Order Comment: Order Added by Bethany Expert. Performed By: #### 1 6324986, 7202339, 0100555, 2524066, 04629907 ####[address] [address] Monocytes/Leukocytes Auto (Bld) [Pure # fraction] 0.5 E9/L Normal 0.2-1.0 [facility] Comment on above: Order Comment: Order Added by Bethany Expert. Performed By: #### 1 3548083, 4041071, 5652120, 5261510, 38438220 ####[place] [address] [place] [address] Neutrophils/100 WBC (Bld) 76.0 % High 36.0-75.0 [facility] Comment on above: Order Comment: Order Added by Discern Expert. Performed By: #### 1 8294514, 6306557, 8162610, 2905828, 81903938 ####[facility] [address] [place] [address] Neutrophils/Leukocytes Auto (Bld) [Pure # fraction] 5.4 E9/L Normal 2.0-7.5 [facility] Comment on above: Order Comment: Order Added by Discern Expert. Performed By: #### 1 9633324, 0995524, 4140583, 8824801, 13495327 ####[facility] [address] [place] [address] BMPon 11-28-2022 Creatinine [Mass/Vol] 1.0 mg/dL Normal 0.5-1.3 [facility] Comment on above: Performed By: #### 1 1450778, 2109372, 1622881, 6307087, 12403689 ####[facility] [address] [place] [address] Urea nitrogen [Mass/Vol] 16 mg/dL Normal 5-21 [facility] Comment on above: Performed By: #### 1 1110970, 1484242, 8223375, 5187861, 14038090 ####[facility] [address] [place] [address] Urea nitrogen/Creatinine [Mass ratio] 16 No Units Normal 10-20 [facility] Comment on above: Performed By: #### 1 1664491, 0722452, 4509930, 2279808, 68825894 ####[facility] [address] [place] [address] Anion gap [Moles/Vol] 10 mmol/L Normal 6-16 [facility] Comment on above: Performed By: #### 1 1340375, 3740082, 4826649, 5714736, 33123893 ####[facility] [address] [place] [address] Calcium [Mass/Vol] 8.8 mg/dL Low 8.9-11.1 [facility] Comment on above: Performed By: #### 1 1372259, 4630748, 2882229, 7973941, 56812321 ####[facility] [address] [place] [address] Chloride [Moles/Vol] 105 mmol/L Normal 101-111 [facility] Comment on above: Performed By: #### 1 3874343, 8844406, 6251612, 0226771, 24101870 ####[facility] [address] [place] [address] CO2 [Moles/Vol] 28 mmol/L Normal 21-31 [facility] Comment on above: Performed By: #### 1 7013625, 8795755, 0462475, 2480564, 42847888 ####[facility] [address] [place] [address] Glucose [Mass/Vol] 114 mg/dL Normal 55-199 [facility] Comment on above: Result Comment: If t his glucose result represents a fasting glucose, interpretation should refer to the following reference range: 55-99 mg/dL Performed By: #### 1 5633582, 4852848, 7943260, 5148139, 78743060 ####[facility] [address] [place] [address] Potassium [Moles/Vol] 4.1 mmol/L Normal 3.5-5.3 [facility] Comment on above: Performed By: #### 1 9853922, 2221006, 4919044, 9167762, 73483859 ####[facility] [address] [place] [address] Sodium [Moles/Vol] 139 mmol/L Normal 135-145 [facility] Comment on above: Performed By: #### 1 4839798, 1549169, 3735876, 9556045, 94657926 ####[facility] [address] [place] [address] Blood Gas Art, with Lytes, G christal, [place] 11-28-2022 a/A Ratio Art 53.40 % Normal >=0.80 [facility] Comment on above: Performed By: #### 4 69984837 ####[facility] [address] [facility] [address] AaDO2 Art 64.9 mmHg High 5.0-15.0 [facility] Comment on above: Performed By: #### 4 69307679 ####[facility] [address] [facility] [address] Allens Test Positive Normal [facility] Comment on above: Performed By: #### 4 34652676 ####[facility] [address] [facility] [address] Base Excess Arterial 2.9 mmol/L Normal >=2.8 [facility] Comment on above: Performed By: #### 4 76482307 ####[facility] [address] [facility] [address] cCa2+ Art 4.88 mg/dL Normal 4.40-5.30 [facility] Comment on above: Performed By: #### 4 73021862 ####[facility] [address] [facility] [address] cCl- Art 103.0 mmol/L Normal 101.0-111.0 [facility] Comment on above: Performed By: #### 4 18329070 ####[facility] [address] [facility] [address] cGlu Art 98 mg/dL Normal 55-99 [facility] Comment on above: Performed By: #### 4 82248129 ####[facility] [address] [facility] [address] cK+ Art 3.6 mmol/L Normal 3.5-5.3 [facility] Comment on above: Performed By: #### 4 74023770 ####[facility] [address] [facility] [address] cLac Art .6 mmol/L Normal .5-2.2 [facility] Comment on above: Performed By: #### 4 47147635 ####[facility] [address] [place] [address] pipe stress engineer+ Art 139.0 mmol/L Normal 135.0-145.0 [facility] Comment on above: Performed By: #### 4 74957629 ####[address] [address] Drawn by nmb Invalid Interpretation Code [facility] Comment on above: Performed By: #### 4 37976951 ####[address] [address] FCOHb Art 1.5 % Normal 1.5-4.9 [facility] Comment on above: Result Comment: Refe rence rangeNonsmoker <1.5%Smoker <5.0%Heavy Smoker <9.0% Performed By: #### 4 37376667 ####[address] [address] FIO2 BG 28 Invalid Interpretation Code [facility] Comment on above: Performed By: #### 4 67900254 ####[address] [address] Flow 2 Invalid Interpretation Code [facility] Comment on above: Performed By: #### 4 64223104 ####[address] [address] FMetHb Art 0.3 % Normal 0.0-1.9 [facility] Comment on above: Performed By: #### 4 10830640 ####[address] [address] FO2Hb Art 93.7 % Normal 93.0-100.0 [facility] Comment on above: Performed By: #### 4 87597047 ####[address] [address] HCO3 (Bld) [Moles/Vol] 26.9 mmol/L High 22.0-26.0 [facility] Comment on above: Performed By: #### 4 50958498 ####[address] [address] Hemoglobin (Bld) [Mass/Vol] 11.9 g/dL Low 12.0-17.0 [facility] Comment on above: Performed By: #### 4 66847326 ####[place] [address] [place] [address] Oxygen saturation in Blood 95.4 % Normal 95.0-100.0 [facility] Comment on above: Performed By: #### 4 31422254 ####[address] [address] P CO2 Arterial 47.6 mmHg High 35.0-45.0 [facility] Comment on above: Performed By: #### 4 36585449 ####[address] [address] P O2 Arterial 74.3 mmHg Low 80.0-100.0 [facility] Comment on above: Performed By: #### 4 56012515 ####[place] [address]457 pH Arterial 7.387 Normal 7.350-7.450 [facility] Comment on above: Performed By: #### 4 03346651 ####[address] [address] Sample Site R Radial Normal [facility] Comment on above: Performed By: #### 4 21297371 ####[address] [address] Sample Type Arterial Draw Normal [facility] Comment on above: Performed By: #### 4 57452230 ####[address] [address] CBC w/ Auto Diffon 3 Erythrocyte distribution width (RBC) [Ratio] 14.8 % High 10.9-14.2 [facility] Comment on above: Performed By: #### 1 1464399, 2359410, 6372424, 6611530, 35823684 ####[place] [address] [place] [address] Hematocrit (Bld) [Volume fraction] 37.3 % Low 37.7-49.0 [facility] Comment on above: Performed By: #### 1 4119548, 7233062, 5492660, 8550872, 01779082 ####[facility] [address] [place] [address] Hemoglobin (Bld) [Mass/Vol] 12.3 g/dL Low 13.5-17.5 [facility] Comment on above: Performed By: #### 1 0076629, 2008019, 8854506, 7662642, 07317467 ####[address] [place] [address] MCH (RBC) [Entitic mass] 28.3 pg Normal 27.0-34.0 [facility] Comment on above: Performed By: #### 1 3264187, 1311563, 6761057, 3409763, 21070692 ####[place] [address] MCHC (RBC) [Mass/Vol] 33.0 g/dL Normal 31.4-36.0 [facility] Comment on above: Performed By: #### 1 5927254, 0118183, 0078894, 9440214, 46125497 ####[address] [address] MCV (RBC) [Entitic vol] 85.9 fL Normal 80.0-100.0 [facility] Comment on above: Performed By: #### 1 3507662, 8418962, 5047336, 8251093, 14871159 ####[facility] [address] [place] [address] Platelet mean volume (Bld) [Entitic vol] 10.4 fL Normal 6.4-10.8 [facility] Comment on above: Performed By: #### 1 7066002, 1215519, 6846351, 1486355, 38958063 ####[address] [address] Platelets (Bld) [#/Vol] 189.0 E9/L Normal 150.0-500.0 [facility] Comment on above: Performed By: #### 1 8593264, 4643648, 5221782, 1515183, 86909965 ####[facility] [address] [place] [address] RBC (Bld) [#/Vol] 4.3 E12/L Normal 4.3-5.9 [facility] Comment on above: Performed By: #### 1 4795179, 2068178, 8475927, 5166298, 49104777 ####[facility] [address] [place] [address] WBC corrected for nucl RBC Auto (Bld) [#/Vol] 7.1 E9/L Normal 4.0-11.0 [facility] Comment on above: Performed By: #### 1 8108703, 8629260, 7969246, 9583995, 04105085 ####[facility] [address] [place] [address] CHEMISTRYOrdered By: [employer] SYSTEM on 11-28-2022 Troponin I.cardiac [Mass/Vol] 32.60 pg/mL Normal 15.90 - 38.40 pg/mL [facility] Remisol Troponin I.cardiac [Mass/Vol] 26.90 pg/mL Normal 15.90 - 38.40 pg/mL [facility] Remisol Consent for Treatmenton Consent for Treatment [id number]#1.0 0CD:127 Normal [facility] ED Note-Physicianon 11-29-19 ED [...] [facility] Resp Auto SS Allens Test Positive (7/8/23 6:55 PM) Normal [facility] Resp Auto SS Base Excess Arterial 2.9 mmol/L Normal >=2.8mmol/L [facility] Resp Auto SS cCa2+ Art 4.88 mg/dL Normal 4.40 - 5.30 mg/dL [facility] Resp Auto SS cCl- Art 103.0 mmol/L Normal 101.0 - 111.0 mmol/L [facility] Resp Auto SS cGlu Art 98 mg/dL Normal 55 - 99 mg/dL [facility] Resp Auto SS cK+ Art 3.6 mmol/L Normal 3.5 - 5.3 mmol/L [facility] Resp Auto SS cLac Art 0.6 mmol/L Normal 0.5 - 2.2 mmol/L [facility] Resp Auto SS pipe stress engineer+ Art 139.0 mmol/L Normal 135.0 - 145.0 mmol/L [facility] Resp Auto SS Drawn by nmb Invalid Interpretation Code [facility] Resp Auto SS FCOHb Art 1.5 % Normal 1.5 - 4.9 % [facility] Resp Auto SS FIO2 BG 28 Invalid Interpretation Code [facility] Resp Auto SS Flow 2 Invalid Interpretation Code [facility] Resp Auto SS FMetHb Art 0.3 % Normal 0.0 - 1.9 % [facility] Resp Auto SS FO2Hb Art 93.7 % Normal 93.0 - 100.0 % [facility] Resp Auto SS HCO3 (Bld) [Moles/Vol] 26.9 mmol/L High 22.0 - 26.0 mmol/L [facility] Resp Auto SS Hemoglobin (Bld) [Mass/Vol] 11.9 g/dL Low 12.0 - 17.0 gm/dL [facility] Resp Auto SS P CO2 Arterial 47.6 mm[Hg] High 35.0 - 45.0 mmHg [facility] Resp Auto SS P O2 Arterial 74.3 mm[Hg] Low 80.0 - 100.0 mmHg [facility] Resp Auto SS pH Arterial 7.387 Normal 7.350 - 7.450 [facility] Resp Auto SS Sample Site R Radial (11/28/22 6:55 PM) Normal [facility] Resp Auto SS Sample Type Arterial Draw (11/28/22 6:55 PM) Normal [facility] Resp Auto SS HEMATOLOGYOrdered By: [...] 10.4 fL Normal 6.4 - 10.8 fL [facility] HemeAutoSS Platelets (Bld) [#/Vol] 189.0 E9/L Normal 150. 0 - 500.0 E9/L [facility] HemeAutoSS RBC (Bld) [#/Vol] 4.3 E12/L Normal 4.3 - 5.9 E12/L [facility] HemeAutoSS WBC corrected for nucl RBC Auto (Bld) [#/Vol] 7.1 E9/L Normal 4.0 - 11.0 E9/L [facility] HemeAutoSS Pre-Arrival Noteon Pre-Arrival Note Normal [facility] Troponin 0 Hr.on 11-28-2022 Troponin I.cardiac [Mass/Vol] 21.80 pg/mL Normal 15.90-38.40 [facility] Comment on above: Result Comment: The 95% CI (Confidence Interval) PPV (Positive Predictive Value) for myocardial infarction in females is 38 pg/mL, in males 51 pg/mL. The results should be used in conjunction with clinical conditions of myocardial infarction.(Access High Sensitivity Troponin I Instructions For Use, [employer], December 2017) Performed By: #### 1 [id number] ####[facility] [id number] [place] [address] Troponin 3 Hr.on 11-28-2022 Troponin I.cardiac [Mass/Vol] 26.90 pg/mL Normal 15.90-38.40 [facility] Comment on above: Result Comment: The 95% CI (Confidence Interval) PPV (Positive Predictive Value) for myocardial infarction in females is 38 pg/mL, in males 51 pg/mL. The results should be used in conjunction with clinical conditions of myocardial infarction.(Access High Sensitivity Troponin I Instructions For Use, [employer], December 2017) Performed By: #### 1 [id number] ####[facility] [address] [place] [address] UA With Cult Reflexon 2022 Crystals LM Ql (Urine sed) Present Normal [facility] Comment on above: Performed By: #### 1 0923273 ####[facility] [address]prxmtvfq[address] [place] [address] Epithelial cells.squamous LM.HPF (Urine sed) [#/Area] 0-2 Normal 0-2 [facility] Comment on above: Performed By: #### 1 8273372 ####[facility] K[address]rayn[address] [place] [address] Nettleton.plasma/Nettleton.R BC (Bld) [Mass ratio] 0-3 Normal 0-3 [facility] Comment on above: Performed By: #### 1 2122905 ####[facility] S[address]fgwihat[address] [place] [address] Mucus Ql (Urine sed) TRACE Normal [facility] Comment on above: Performed By: #### 1 0450962 ####[address] [address] WBC LM.HPF (Urine sed) [#/Area] 0-5 Normal 0-5 [facility] Comment on above: Performed By: #### 1 4563072 ####[address] [address] Bilirubin Ql (U) Negative Normal Negative [facility] Comment on above: Performed By: #### 1 4838404 ####[address] [place] [address] Clarity (U) CLEAR Normal Clear [facility] Comment on above: Performed By: #### 1 2239165 ####[address] [address] Color (U) YELLOW Normal Yellow [facility] Comment on above: Performed By: #### 1 1654433 ####[address] [address] Glucose Test strip (U) [Mass/Vol] Negative Normal Negative [facility] Comment on above: Performed By: #### 1 8689806 ####[address] [address] Hemoglobin Ql (U) Negative Normal Negative [facility] Comment on above: Performed By: #### 1 8850547 ####[address] [address] Ketones (U) [Mass/Vol] Negative Normal Negative [facility] Comment on above: Performed By: #### 1 5744412 ####[facility] Zxjsxpbf[address] [place] [address] Nitrite Ql (U) Negative Normal Negative [facility] Comment on above: Performed By: #### 1 0169434 ####[facility] R[address] [place] [address] pH (U) 6.0 [pH] Invalid Interpretation Code 5.0-9.0 [facility] Comment on above: Performed By: #### 1 1370474 ####[facility] [address] [place] [address] Protein (U) [Mass/Vol] 2+ Abnormal Negative [facility] Comment on above: Performed By: #### 1 5677277 ####[address] [address] Specific gravity (U) [Rel density] 1.025 Invalid Interpretation Code 1.005-1.030 [facility] Comment on above: Performed By: #### 1 1872892 ####[facility] [address] [place] [address] Type of Urine collection method Clean Catch Normal [facility] Comment on above: Performed By: #### 1 3991506 ####[facility] [address] [place] [address] Urobilinogen Qn (U) 0.2 {Lei'U}/dL Normal 0.0-1.0 [facility] Comment on above: Performed By: #### 1 8521495 ####[facility] [address] [place] [address] WBC Auto Ql (U) Negative Normal Negative [facility] Comment on above: Performed By: #### 1 1019617 ####[facility] [address] [place] [address] URINALYSISOrdered By: Emily Suero on 11-28-2022 Bilirubin [...] PM) Normal Negative [facility] UA Auto SS Nettleton.plasma/Nettleton.R BC (Bld) [Mass ratio] 0-3 /HPF Normal [...] [facility] UA Auto SS Urobilinogen Qn (U) 0.9934679 {Lei'U}/dL Normal 0.0 - 1.0 EU/dL [facility] UA Auto SS WBC Auto Ql (U) Negative (11/28/22 5:55 PM) Normal Negative [facility] UA Auto SS WBC LM.HPF (Urine sed) [#/Area] 0-5 /HPF Normal 0-5/HPF [facility] UA Auto SS XR Chest Single Viewon 07-08 -2023 XR Chest Single View Normal [facility] eGFRon 11-28-2022 GFR/1.73 sq M.predicted among non-blacks MDRD (S/P/Bld) [Vol rate/Area] 77 mL/min/1.73 m2 Normal >=59 [facility] Comment on above: Order Comment: Order added by Discern Expert. Result Comment: Recreation Assistant earnest kidney disease could be indicated at eGFR's of less than 60 mL/min/1.73m2. Kidney failure is indicated at less than 15 mL/min/1.73m2. Performed By: #### 1 3009743, 1093694, 5894764, 1965013, 87446054 ####[facility] [address] [place] [address] CHEMISTRYOrdered By: SYSTEM SYSTEM on 11-26-2022 Albumin [...] 2.07 m[IU]/L Normal 0.34 - 5.60 mcIU/mL [facility] Remisol Urea nitrogen [Mass/Vol] 18 mg/dL Normal 5 - 21 mg/dL [facility] Remisol Urea nitrogen/Creatinine [Mass ratio] 20 mg/mg Normal 10 - 20 [facility] Remisol CMPon 11-26-2022 Albumin [Mass/Vol] 3.7 g/dL Normal 3.3-5.0 [facility] Comment on above: Performed By: #### 2 062493, 6945398, 29081103, 8059013 ####[facility] [address]us[address] [place] [address] Albumin/Globulin (S) [Mass conc ratio] 1.2 Normal 1.1-2.2 [facility] Comment on above: Performed By: #### 2 553863, 3100871, 95327644, 6795608 ####[facility] S[address]fs[address] [place] [address] ALP [Catalytic activity/Vol] 38 Int._Unit/L Normal 21-98 [facility] Comment on above: Performed By: #### 2 612883, 1742307, 03493113, 3816467 ####[facility] [address] [place] [address] ALT No additional P-5'-P [Catalytic activity/Vol] 11 Int._Unit/L Normal 6-46 [facility] Comment on above: Performed By: #### 2 107116, 8917716, 51461605, 0382767 ####[facility] Iry[address]epkasl[address] [place] [address] Anion gap [Moles/Vol] 14 mmol/L Normal 6-16 [facility] Comment on above: Performed By: #### 2 037048, 1436349, 78869053, 9174643 ####[facility] [address] [place] [address] AST [Catalytic activity/Vol] 15 Int._Unit/L Normal 5-43 [facility] Comment on above: Performed By: #### 2 338872, 9223117, 93050517, 0454946 ####[facility] [address] [place] [address] Bilirubin [Mass/Vol] 1.0 mg/dL Normal 0.0-1.1 [facility] Comment on above: Performed By: #### 2 285042, 3820017, 61658292, 0401947 ####[facility] [address] [place] [address] Calcium [Mass/Vol] 9.2 mg/dL Normal 8.9-11.1 [facility] Comment on above: Performed By: #### 2 044561, 8471076, 20140199, 2265586 ####[facility] [address] [place] [address] Chloride [Moles/Vol] 107 mmol/L Normal 101-111 [facility] Comment on above: Performed By: #### 2 927020, 7173891, 27945616, 7678348 ####[facility] [address] [place] [address] CO2 [Moles/Vol] 28 mmol/L Normal 21-31 [facility] Comment on above: Performed By: #### 2 947866, 3456603, 47235061, 9584895 ####[facility] [address]zwfd[address] [place] [address] Creatinine [Mass/Vol] 0.9 mg/dL Normal 0.5-1.3 [facility] Comment on above: Performed By: #### 2 677348, 4093881, 66803244, 5788995 ####[facility] [address] [place] [address] Globulin (S) [Mass/Vol] 3.2 g/dL Normal 1.4-4.0 [facility] Comment on above: Performed By: #### 2 349169, 3946437, 91937870, 1548111 ####[facility] [address]le[address]fa[address] [place] [address] Glucose [Mass/Vol] 95 mg/dL Normal 55-199 [facility] Comment on above: Result Comment: If t his glucose result represents a fasting glucose, interpretation should refer to the following reference range: 55-99 mg/dL Performed By: #### 2 035332, 4227881, 13991071, 1998391 ####[facility] [address] [place] [address] Potassium [Moles/Vol] 4.2 mmol/L Normal 3.5-5.3 [facility] Comment on above: Performed By: #### 2 209780, 5397733, 66877139, 1744547 ####[facility] [address] [place] [address] Protein [Mass/Vol] 6.9 g/dL Normal 6.0-7.8 [facility] Comment on above: Performed By: #### 2 584627, 7370913, 36248001, 0356951 ####[facility] [address] [place] [address] Sodium [Moles/Vol] 145 mmol/L Normal 135-145 [facility] Comment on above: Performed By: #### 2 767677, 6511756, 53444249, 2200060 ####[facility] [address]ch[address] [place] [address] Urea nitrogen [Mass/Vol] 18 mg/dL Normal 5-21 [facility] Comment on above: Performed By: #### 2 999181, 3233792, 24029851, 1094517 ####[facility] [address] [place] [address] Urea nitrogen/Creatinine [Mass ratio] 20 No Units Normal 10-20 [facility] Comment on above: Performed By: #### 2 447112, 5376176, 11587558, 0474058 ####[facility] [address] [place] [address] Consent for Treatmenton 0 Consent for Treatment [id number] [id number]#1.0 0CD:127 Normal [facility] Lipid Panelon 11-26-2022 Cholesterol [Mass/Vol] 112 mg/dL Low 120-200 [facility] Comment on above: Performed By: #### 2 201406, 6646664, 37399554, 0724510 ####[facility] [address] [place] [address] Cholesterol in HDL [Mass/Vol] 49 mg/dL Invalid Interpretation Code [facility] Comment on above: Result Comment: HDL > or equal to 60 mg/dL: Low cardiovascular riskHDL < 40 mg/dL : High cardiovascular risk Performed By: #### 2 348618, 1958684, 51805050, 9113198 ####[facility] [address] [place] [address] Cholesterol in LDL [Mass/Vol] 42 mg/dL Normal <=129 [facility] Comment on above: Performed By: #### 2 195656, 8231258, 59102015, 8806965 ####[facility] [address] [place] [address] Cholesterol in VLDL [Mass/Vol] 14 mg/dL Normal 7-40 [facility] Comment on above: Performed By: #### 2 849811, 5597270, 71477699, 9658702 ####[facility] [address]qs[address] [place] [address] Triglyceride [Mass/Vol] 69 mg/dL Normal <=149 [facility] Comment on above: Performed By: #### 2 952813, 5103703, 89550374, 4337436 ####[facility] [address] [place] [address] Physician Orderon 11-26-2022 Physician Order [id number]#1. 00CD:127 Normal [facility] TSHon 11-26-2022 TSH Qn 2.07 m[IU]/L Normal 0.34-5.60 [facility] Comment on above: Performed By: #### 2 881050, 8250932, 69759384, 7442534 ####[facility] [address] [place] [address] eGFRon 11-26-2022 GFR/1.73 sq M.predicted among non-blacks MDRD (S/P/Bld) [Vol rate/Area] 87 mL/min/1.73 m2 Normal >=59 [facility] Comment on above: Order Comment: Order added by Discern Expert. Result Comment: Recreation Assistant earnest kidney disease could be indicated at eGFR's of less than 60 mL/min/1.73m2. Kidney failure is indicated at less than 15 mL/min/1.73m2. Performed By: #### 2 021481, 6392048, 84199183, 4222714 ####[facility] [address] [place] [address] Discharge Instructionson Discharge Instructions [id number]#1.0 0CD:127 Normal [facility] Transfer Documentson 023 Transfer Documents [id number]#1.0 0CD:127 Normal [facility] Capillary Glucose POCon Glucose [Mass/Vol] 166 mg/dL High 55-99 [facility] Comment on above: Result Comment: Gareth guerrero RN/ Performed By: #### 2 96429278 ####[facility] [address] [place] [address] Glucose [Mass/Vol] 119 mg/dL High 55-99 [facility] Comment on above: Result Comment: Repe at Test Performed By: #### 2 86411094 ####[facility] [address] [place] [address] Discharge Note-Nursingon Discharge Note-Nursing Normal [facility] FyiU0jkm 09-28-2022 HbA1c (Bld) [Mass fraction] 6.4 % High <=5.9 [facility] Comment on above: Order Comment: IF UN ABLE TO ADD TO ED LABS Performed By: #### 2 736247, [id number] ####[facility] [address] [place] [address] Inpatient Clinical Summaryon 09-28-2022 Inpatient Clinical Summary Normal [facility] Inpatient Patient Summaryon 09-28-2022 Inpatient Patient Summary Normal [facility] Inpatient Patient Summary Normal [facility] Interdisciplinary Note - Santosh e Manageron 09-28-2022 Interdisciplinary Note - Fuel Buyer [facility] Comment on above: Result Comment: Elec tronically Signed By: Jose HAYDEN, Norma\.br\Date and Time Signed: 09/28/22 15:54 EDT Monitor Recordon 09-28-2022 Monitor Record [id number]#1. 00CD:127 Normal [facility] Capillary Glucose POCon Glucose [Mass/Vol] 192 mg/dL High 55-99 [facility] Comment on above: Result Comment: Gareth GARDINER Performed By: #### 2 53523628 ####[facility] [address] [place] [address] Glucose [Mass/Vol] 130 mg/dL High 55-99 [facility] Comment on above: Result Comment: No C overage Given Performed By: #### 2 31483669 ####[address] [address] Glucose [Mass/Vol] 202 mg/dL High 55-99 [facility] Comment on above: Result Comment: Gareth GARDINER Performed By: #### 2 59597206 ####[address] [place] [address] Glucose [Mass/Vol] 89 mg/dL Normal 55-99 [facility] Comment on above: Result Comment: Gareth GARDINER Performed By: #### 2 06520339 ####[address] [address] Insurance Correspondence Off ice09-27-2022 Insurance Correspondence Office [id number]#1. 00CD:[address] [facility] Interdisciplinary Note - Santosh e Manageron 09-27-2022 Interdisciplinary Note - Fuel Buyer [facility] Comment on above: Result Comment: Elec tronically Signed By: Natalie Grant.candice\Date and Time Signed: 09/27/22 14:56 EDT Interdisciplinary Note - PTo n 09-27-2022 Interdisciplinary Note - PT Pt is safe and indep w/bed mobility, transfers and gait w/FWW. Pt uses FWW at home; he is at his baseline. NO PT needs at this time. No needs anticipated upon d/c home. AM-PAC [facility] Lyteson 09-27-2022 Anion gap [Moles/Vol] 9 mmol/L Normal 6-16 [facility] Comment on above: Performed By: #### 2 053759, [id number] ####[address] [place] [address] Chloride [Moles/Vol] 105 mmol/L Normal 101-111 [facility] Comment on above: Performed By: #### 2 209054, 085378394 ####[facility] [address] [place] [address] CO2 [Moles/Vol] 26 mmol/L Normal 21-31 [facility] Comment on above: Performed By: #### 2 851411, 983744393 ####[facility] [address] [place] [address] Potassium [Moles/Vol] 4.2 mmol/L Normal 3.5-5.3 [facility] Comment on above: Performed By: #### 2 911519, 398767752 ####[facility] [address] [place] [address] Sodium [Moles/Vol] 136 mmol/L Normal 135-145 [facility] Comment on above: Performed By: #### 2 499562, 298747817 ####[facility] Er[address]ft[address] [facility] [address] Monitor Recordon 09-27-2022 Monitor Record [id number]#1. 00CD:127 Normal [facility] Monitor Record [id number]#1. 00CD:127 Normal [facility] Progress Note-Nurseon 2022 Progress Note-Nurse Normal [facility] Progress Note-Physicianon Progress Note-Physician Normal [facility] Comment on above: Result Comment: Elec tronically Signed By: Adeline COLEMAN\.br\Date and Time Signed: 09/27/22 15:34 EDT\.br\Electronically Co-Signed By: Adeline COLEMAN\.br\Date and Time Co-Signed: 09/27/22 15:37 EDT\.br\Electronically Co-Signed By: Rei POTTS, Ganesh Meng.br\Date and Time Co-Signed: 09/27/22 18:58 EDT Auto Diffon 09-26-2022 Basophils/100 WBC (Bld) 0.5 % Normal 0.0-2.0 [facility] Comment on above: Order Comment: Order Added by Discern Expert. Performed By: #### 1 4646777, 1118365, 6524688, 5118030 ####[address] [place] [address] Basophils/Leukocytes Auto (Bld) [Pure # fraction] 0.0 E9/L Normal 0.0-0.2 [facility] Comment on above: Order Comment: Order Added by Discern Expert. Performed By: #### 1 6816216, 6922904, 8273516, 9816643 ####[address] [address] Eosinophils/100 WBC (Bld) 3.3 % Normal 0.0-8.0 [facility] Comment on above: Order Comment: Order Added by Discern Expert. Performed By: #### 1 5881789, 5733785, 7111894, 9034352 ####[address] [place] [address] Eosinophils/Leukocytes Auto (Bld) [Pure # fraction] 0.3 E9/L Normal 0.0-0.5 [facility] Comment on above: Order Comment: Order Added by Discern Expert. Performed By: #### 1 8008305, 3970584, 9209782, 1682074 ####[address] [place] [address] Lymphocytes/100 WBC (Bld) 9.5 % Low 14.0-50.0 [facility] Comment on above: Order Comment: Order Added by Discern Expert. Performed By: #### 1 6426199, 7960006, 2117530, 8182712 ####[facility] [address] [place] [address] Lymphocytes/Leukocytes Auto (Bld) [Pure # fraction] 0.8 E9/L Low 1.0-4.0 [facility] Comment on above: Order Comment: Order Added by Discern Expert. Performed By: #### 1 1031887, 8865192, 9566389, 6422474 ####[facility] [address] [place] [address] Monocytes/100 WBC (Bld) 7.2 % Normal 4.0-14.0 [facility] Comment on above: Order Comment: Order Added by Discern Expert. Performed By: #### 1 5154099, 2599106, 0980900, 0160947 ####[facility] [address] [place] [address] Monocytes/Leukocytes Auto (Bld) [Pure # fraction] 0.6 E9/L Normal 0.2-1.0 [facility] Comment on above: Order Comment: Order Added by Bethany Expert. Performed By: #### 1 7876578, 6121905, 2944134, 9110744 ####[address] [place] [address] Neutrophils/100 WBC (Bld) 79.5 % High 36.0-75.0 [facility] Comment on above: Order Comment: Order Added by Bethany Expert. Performed By: #### 1 4320234, 5871563, 8551918, 4929199 ####[facility] [address] [place] [address] Neutrophils/Leukocytes Auto (Bld) [Pure # fraction] 6.7 E9/L Normal 2.0-7.5 [facility] Comment on above: Order Comment: Order Added by Bethany Expert. Performed By: #### 1 0568844, 1975537, 4672139, 5530591 ####[facility] [address] [place] [address] BMPon 09-26-2022 Creatinine [Mass/Vol] 1.0 mg/dL Normal 0.5-1.3 [facility] Comment on above: Performed By: #### 1 3172368, 9517533, 1867129, 1090014 ####[facility] [address] [place] [address] Urea nitrogen [Mass/Vol] 25 mg/dL High 5-21 [facility] Comment on above: Performed By: #### 1 0083637, 3084846, 2842702, 8066682 ####[facility] [address] [place] [address] Urea nitrogen/Creatinine [Mass ratio] 25 No Units High 10-20 [facility] Comment on above: Performed By: #### 1 4053577, 8943010, 1759676, 9830624 ####[facility] [address]mt[address]xem[address] [facility] [address] Anion gap [Moles/Vol] 10 mmol/L Normal 6-16 [facility] Comment on above: Performed By: #### 1 4806937, 2160253, 3052057, 3932071 ####[facility] [address] [facility] [address] Calcium [Mass/Vol] 8.9 mg/dL Normal 8.9-11.1 [facility] Comment on above: Performed By: #### 1 3276701, 9721522, 4408067, 3149569 ####[facility] [address] [place] [address] Chloride [Moles/Vol] 101 mmol/L Normal 101-111 [facility] Comment on above: Performed By: #### 1 8095592, 1753170, 8712665, 8834874 ####[facility] [address]xkj[address]993 [facility] [address] CO2 [Moles/Vol] 26 mmol/L Normal 21-31 [facility] Comment on above: Performed By: #### 1 4025558, 8093657, 8993653, 7622677 ####[facility] [address] [facility] [place] [address] Glucose [Mass/Vol] 112 mg/dL Normal 55-199 [facility] Comment on above: Result Comment: If t his glucose result represents a fasting glucose, interpretation should refer to the following reference range: 55-99 mg/dL Performed By: #### 1 8202073, 4212170, 8788940, 0362468 ####[facility] [address] [place] [address] Potassium [Moles/Vol] 4.1 mmol/L Normal 3.5-5.3 [facility] Comment on above: Performed By: #### 1 1719087, 4247865, 9506248, 5134023 ####[facility] [address] [place] [address] Sodium [Moles/Vol] 133 mmol/L Low 135-145 [facility] Comment on above: Performed By: #### 1 4615491, 5658547, 6382330, 7818278 ####[facility] [address] [place] [address] CBC w/ Auto Diffon 3 Erythrocyte distribution width (RBC) [Ratio] 14.6 % High 10.9-14.2 [facility] Comment on above: Performed By: #### 1 0610074, 5616911, 4518083, 0026661 ####[facility] [address] [place] [address] Hematocrit (Bld) [Volume fraction] 37.6 % Low 37.7-49.0 [facility] Comment on above: Performed By: #### 1 0717086, 2660117, 1641120, 3530300 ####[facility] [address] [place] [address] Hemoglobin (Bld) [Mass/Vol] 12.5 g/dL Low 13.5-17.5 [facility] Comment on above: Performed By: #### 1 0402862, 5762234, 4286415, 3580678 ####[facility] [address] [place] [address] MCH (RBC) [Entitic mass] 28.5 pg Normal 27.0-34.0 [facility] Comment on above: Performed By: #### 1 2700596, 7248153, 7831149, 0520286 ####[facility] [address] [place] [address] MCHC (RBC) [Mass/Vol] 33.2 g/dL Normal 31.4-36.0 [facility] Comment on above: Performed By: #### 1 6437583, 8304028, 9359080, 8586504 ####[facility] [address] [place] [address] MCV (RBC) [Entitic vol] 85.8 fL Normal 80.0-100.0 [facility] Comment on above: Performed By: #### 1 1305707, 9117792, 6602359, 4740799 ####[facility] [address] [place] [address] Platelet mean volume (Bld) [Entitic vol] 10.3 fL Normal 6.4-10.8 [facility] Comment on above: Performed By: #### 1 8487154, 5449137, 8977224, 9412633 ####[address] [address] Platelets (Bld) [#/Vol] 164.0 E9/L Normal 150.0-500.0 [facility] Comment on above: Performed By: #### 1 2679073, 3483207, 5328106, 4741979 ####[address] [address] RBC (Bld) [#/Vol] 4.4 E12/L Normal 4.3-5.9 [facility] Comment on above: Performed By: #### 1 3601295, 9243466, 2656313, 0253091 ####[address] [address] WBC corrected for nucl RBC Auto (Bld) [#/Vol] 8.4 E9/L Normal 4.0-11.0 [facility] Comment on above: Performed By: #### 1 4142624, 9454407, 4617333, 4602723 ####[facility] [address] [place] [address] Capillary Glucose POCon 05-0 Glucose [Mass/Vol] 161 mg/dL High 55-99 [facility] Comment on above: Result Comment: Gareth guerrero RN/MD Performed By: #### 2 46629726 ####[facility] [address] [place] [address] Consent for Treatmenton Consent for Treatment [id number]#1.0 0CD:127 Normal [facility] ED Clinical Summaryon 2022 ED Clinical Summary Normal [facility] ED Note-Physicianon 09-27-19 ED Note-Physician Normal [facility] [...] [facility] Pre-Arrival Noteon Pre-Arrival Note Normal [facility] UA With Cult Reflexon 2022 Bilirubin Ql (U) Negative Normal Negative [facility] Comment on above: Order Comment: can s traight cath if needed. Performed By: #### 1 7304377 ####[facility] [address] [place] [address] Clarity (U) CLEAR Normal Clear [facility] Comment on above: Order Comment: can s traight cath if needed. Performed By: #### 1 6000677 ####[facility] [address] [place] [address] Color (U) YELLOW Normal Yellow [facility] Comment on above: Order Comment: can s traight cath if needed. Performed By: #### 1 3639748 ####[facility] [address]ksdfhw[address] [place] [address] Epithelial cells.squamous LM.HPF (Urine sed) [#/Area] 0-2 Normal 0-2 [facility] Comment on above: Order Comment: can s traight cath if needed. Performed By: #### 1 1229068 ####[facility] [address] [place] [address] Glucose Test strip (U) [Mass/Vol] Negative Normal Negative [facility] Comment on above: Order Comment: can s traight cath if needed. Performed By: #### 1 2621100 ####[facility] [address] [place] [address] Hemoglobin Ql (U) Negative Normal Negative [facility] Comment on above: Order Comment: can s traight cath if needed. Performed By: #### 1 [id number] ####[address] [address] Ketones (U) [Mass/Vol] Negative Normal Negative [facility] Comment on above: Order Comment: can s traight cath if needed. Performed By: #### 1 [id number] ####[address] [address] [place]leton.plasma/Nettleton.R BC (Bld) [Mass ratio] 0-3 Normal 0-3 [facility] Comment on above: Order Comment: can s traight cath if needed. Performed By: #### 1 [id number] ####[address] [address] Nitrite Ql (U) Negative Normal Negative [facility] Comment on above: Order Comment: can s traight cath if needed. Performed By: #### 1 [id number] ####[address] [address] pH (U) 5.5 [pH] Invalid Interpretation Code 5.0-9.0 [facility] Comment on above: Order Comment: can s traight cath if needed. Performed By: #### 1 [id number] ####[address] [place] [address] Protein (U) [Mass/Vol] Negative Normal Negative [facility] Comment on above: Order Comment: can s traight cath if needed. Performed By: #### 1 [id number] ####[facility] [address] [place] [address] Specific gravity (U) [Rel density] 1.025 Invalid Interpretation Code 1.005-1.030 [facility] Comment on above: Order Comment: can s traight cath if needed. Performed By: #### 1 [id number] ####[address] [address] Type of Urine collection method Clean Catch Normal [facility] Comment on above: Order Comment: can s traight cath if needed. Performed By: #### 1 [id number] ####[address] [address] Urobilinogen Qn (U) 1.0 {Lei'U}/dL Normal 0.0-1.0 [facility] Comment on above: Order Comment: can s traight cath if needed. Performed By: #### 1 [id number] ####[id number] WBC Auto Ql (U) Negative Normal Negative [facility] Comment on above: Order Comment: can s traight cath if needed. Performed By: #### 1 [id number] ####[id number] WBC LM.HPF (Urine sed) [#/Area] 0-5 Normal 0-5 [facility] Comment on above: Order Comment: can s traight cath if needed. Performed By: #### 1 [id number] ####[address] [address] XR Chest Single Viewon 09-26 XR Chest Single View Normal [facility] eGFRon 09-26-2022 GFR/1.73 sq M.predicted among non-blacks MDRD (S/P/Bld) [Vol rate/Area] 77 mL/min/1.73 m2 Normal >=59 [facility] Comment on above: Order Comment: Order added by Discern Expert. Result Comment: Recreation Assistant earnest kidney disease could be indicated at eGFR's of less than 60 mL/min/1.73m2. Kidney failure is indicated at less than 15 mL/min/1.73m2. Performed By: #### 1 [id number] ####[facility] [address] [place] [address] Q - CULTURE,URINE,ROUTINEon 06-23-2021 CULTURE, URINE, ROUTINE SEE NOTE Normal N [facility] Specialist Comment on above: Order Comment: [facility] Testing performed at: [facility], [facility], [address] [place] [address], [address] [place] [address], [id number], Restoration Officer: Archie Sinha MD [facility] Collection Date/Time: [id number] [facility] Results Received Date/Time: [facility] Reported Date/Time: Result Comment: CULT URE, URINE, ROUTINE Micro Number: [id number] Test Status: Final Specimen Source: Urine Specimen Quality: Adequate Result: Mixed genital alvin isolated. These superficial bacteria are not indicative of a urinary tract infection. No further organism identification is warranted on this specimen. If clinically indicated, recollect clean-catch, mid-stream urine and transfer immediately to Urine Culture Transport Tube. Performed By: #### 6 [id number] #### [facility] Default [address] [place] [address] Q - CULTURE,URINE,ROUTINEon 05-05-2021 CULTURE, URINE, ROUTINE SEE NOTE Normal N [facility] Specialist Comment on above: Order Comment: [facility] Testing performed at: [employer] [facility], [address] [place] [address], [address] [place] [address], [phone], Restoration Officer: Archie Sinha MD [facility] Collection Date/Time: [id number] [facility] Results Received Date/Time: [id number] [facility] Reported Date/Time: [id number] Result Comment: CULT URE, URINE, ROUTINE Micro Number: [id number] Test Status: Final Specimen Source: Urine Specimen Quality: Adequate Result: Growth of mixed alvin was isolated, suggesting probable contamination. No further testing will be performed. If clinically indicated, recollection using a method to minimize contamination, with prompt transfer to Urine Culture Transport Tube, is recommended. Performed By: #### 6 [id number] #### [facility] [address] [place] [address] Vital Signs Date Time Vital Sign Value Performing Clinician Facility 01-24-2023 10:00-0400 Hourly Rounding Mbanefo OJUKWU [facility] 01-24-2023 10:00-0400 Promise to Return Mbanefo OJUKWU [facility] 01-24-2023 09:00-0400 Hourly Rounding Mbanefo OJUKWU [facility] 01-24-2023 09:00-0400 Promise to Return Mbanefo OJUKWU [facility] 01-24-2023 08:29-0400 Diastolic blood pressure 73 mm[Hg] Mbanefo OJUKWU [facility] 01-24-2023 08:29-0400 Systolic blood pressure 157 mm[Hg] Mbanefo OJUKWU [facility] 01-24-2023 08:27-0400 Blood Pressure Location Mbanefo OJUKWU [facility] 01-24-2023 08:27-0400 Body temperature 97.7 [degF] Mbanefo OJUKWU [facility] 01-24-2023 08:27-0400 Diastolic blood pressure 73 mm[Hg] Mbanefo OJUKWU [facility] 01-24-2023 08:27-0400 Heart rate 82 /min Mbanefo OJUKWU [facility] 01-24-2023 08:27-0400 Respiratory rate 16 /min Mbanefo OJUKWU [facility] 01-24-2023 08:27-0400 Systolic blood pressure 157 mm[Hg] Mbanefo OJUKWU [facility] 01-24-2023 08:00-0400 Hourly Rounding Mbanefo OJUKWU [facility] 01-24-2023 08:00-0400 Promise to Return Mbanefo OJUKWU [facility] 01-24-2023 00:05-0400 Blood Pressure Location Mbanefo OJUKWU [facility] 01-24-2023 00:05-0400 Body temperature 97.7 [degF] Mbanefo OJUKWU [facility] 01-24-2023 00:05-0400 Diastolic blood pressure 76 mm[Hg] Mbanefo OJUKWU [facility] 01-24-2023 00:05-0400 Heart rate 83 /min Mbanefo OJUKWU [facility] 01-24-2023 00:05-0400 Mean blood pressure 99 mm[Hg] Mbanefo OJUKWU [facility] 01-24-2023 00:05-0400 SaO2% (BldA) [Mass fraction] 97 % Mbanefo OJUKWU [facility] 01-24-2023 00:05-0400 Systolic blood pressure 144 mm[Hg] Mbanefo OJUKWU [facility] 01-23-2023 19:36-0400 Heart rate 81 /min Mbanefo OJUKWU [facility] 01-23-2023 19:36-0400 SaO2% (BldA) [Mass fraction] 96 % Mbanefo OJUKWU [facility] 01-23-2023 19:36-0400 Body temperature 97.34 [degF] Mbanefo OJUKWU [facility] 01-23-2023 19:34-0400 Mean blood pressure 83 mm[Hg] Mbanefo OJUKWU [facility] 01-23-2023 13:00-0400 Body temperature 98.06 [degF] Mbanefo OJUKWU [facility] 01-23-2023 06:55-0400 Blood Pressure Location Mbanefo OJUKWU [facility] 01-23-2023 06:55-0400 Mean blood pressure 89 mm[Hg] Mbanefo OJUKWU [facility] 01-23-2023 06:55-0400 Respiratory rate 16 /min Mbanefo OJUKWU [facility] 01-23-2023 06:55-0400 SaO2% (BldA) [Mass fraction] 93 % Mbanefo OJUKWU [facility] 01-22-2023 23:00-0400 Body temperature 97.88 [degF] Mbanefo OJUKWU [facility] 01-22-2023 23:00-0400 Mean blood pressure 82 mm[Hg] Mbanefo OJUKWU [facility] 01-22-2023 23:00-0400 Respiratory rate 18 /min Mbanefo OJUKWU [facility] 01-22-2023 18:37-0400 Body temperature 97.52 [degF] Mbanefo OJUKWU [facility] 01-22-2023 18:36-0400 Mean blood pressure 81 mm[Hg] Mbanefo OJUKWU [facility] 01-22-2023 16:09-0400 Mean blood pressure 81 mm[Hg] Mbanefo OJUKWU [facility] 01-22-2023 16:07-0400 Body temperature 97.52 [degF] Mbanefo OJUKWU [facility] 01-22-2023 04:50-0400 Heart rate 77 /min Mbanefo OJUKWU [facility] 01-21-2023 21:09-0400 Heart rate 85 /min Mbanefo OJUKWU [facility] 01-21-2023 15:11-0400 Heart rate 78 /min Mbanefo OJUKWU [facility] 12-20-2022 09:37-0400 Hourly Rounding Maycolyasmine ARRIOLASLIN [facility] 12-20-2022 09:37-0400 Promise to Return Maycol TSERING [facility] 12-20-2022 09:06-0400 Heart rate 65 /min Maycol TSERING [facility] 12-20-2022 09:06-0400 Respiratory rate 20 /min Maycol TSERING [facility] 12-20-2022 09:06-0400 SaO2% (BldA) [Mass fraction] 92 % Maycol TSERING [facility] 12-20-2022 08:56-0400 Heart rate 61 /min Maycol TSERING [facility] 12-20-2022 08:56-0400 Respiratory rate 20 /min Maycol TSERING [facility] 12-20-2022 08:56-0400 SaO2% (BldA) [Mass fraction] 92 % Maycol TSERING [facility] 12-20-2022 08:51-0400 Hourly Rounding Maycol TSERING [facility] 12-20-2022 08:51-0400 Promise to Return Maycol TSERING [facility] 12-20-2022 08:50-0400 Hourly Rounding Maycol TSERING [facility] 12-20-2022 08:31-0400 Promise to Return Maycol TSERING [facility] 12-20-2022 07:29-0400 Heart rate 60 /min Maycol TSERING [facility] 12-20-2022 07:29-0400 SaO2% (BldA) [Mass fraction] 93 % Maycol TSERING [facility] 12-20-2022 07:28-0400 Body temperature 98.06 [degF] Maycol TSERING [facility] 12-20-2022 07:28-0400 Diastolic blood pressure 69 mm[Hg] Maycol TSERING [facility] 12-20-2022 07:28-0400 Mean blood pressure 94 mm[Hg] Maycol TSERING [facility] 12-20-2022 07:28-0400 Systolic blood pressure 143 mm[Hg] Maycol TSERING [facility] 12-20-2022 03:25-0400 Respiratory rate 16 /min Maycol TSERING [facility] 12-20-2022 00:15-0400 Body temperature 97.7 [degF] Maycol TSERING [facility] 12-20-2022 00:15-0400 Diastolic blood pressure 56 mm[Hg] Maycol TSERING [facility] 12-20-2022 00:15-0400 Systolic blood pressure 135 mm[Hg] Maycol TSERING [facility] 12-19-2022 19:28-0400 Body temperature 98.42 [degF] Maycol TSERING [facility] 12-19-2022 19:27-0400 Diastolic blood pressure 69 mm[Hg] Maycol TSERING [facility] 12-19-2022 19:27-0400 Mean blood pressure 90 mm[Hg] Maycol TSERING [facility] 12-19-2022 19:27-0400 Systolic blood pressure 134 mm[Hg] Maycol TSERING [facility] 12-19-2022 16:26-0400 gluc 111 mg/dL Maycol TSERING [facility] 12-19-2022 16:06-0400 Mean blood pressure 95 mm[Hg] Maycol TSERING [facility] 12-19-2022 16:00-0400 Body temperature 98.06 [degF] Maycol TSERING [facility] 12-19-2022 11:58-0400 gluc 201 mg/dL Maycol TSERING [facility] 12-19-2022 08:18-0400 gluc 93 mg/dL Maycol TSERING [facility] 12-19-2022 08:00-0400 Body temperature 98.6 [degF] Maycol TSERING [facility] 12-18-2022 05:46-0400 Blood Pressure Location Maycol TSERING [facility] 12-18-2022 05:46-0400 Heart rate 67 /min Maycol TSERING [facility] 12-18-2022 05:00-0400 Body temperature 98.42 [degF] Maycol TSERING [facility] 12-18-2022 05:00-0400 Mean blood pressure 78 mm[Hg] Maycol TSERING [facility] 12-18-2022 05:00-0400 Respiratory rate 20 /min Maycol TSERING [facility] 12-18-2022 04:00-0400 Mean blood pressure 77 mm[Hg] Maycol TSERING [facility] 12-18-2022 04:00-0400 Respiratory rate 21 /min Maycol TSERING [facility] 12-18-2022 03:00-0400 Mean blood pressure 75 mm[Hg] Maycol TSERING [facility] 12-18-2022 03:00-0400 Respiratory rate 22 /min Maycol TSERING [facility] 12-18-2022 00:09-0400 Heart rate 85 /min Maycol TSERING [facility] 12-17-2022 23:54-0400 Heart rate 86 /min Maycol TSERING [facility] 12-02-2022 14:00-0400 SaO2% (BldA) [Mass fraction] 93 % Maycol TSERING [facility] 12-02-2022 13:00-0400 Hourly Rounding Maycol TSERING [facility] 12-02-2022 13:00-0400 Promise to Return Maycol TSERING [facility] 12-02-2022 12:58-0400 Heart rate 85 /min Maycol TSERING [facility] 12-02-2022 12:58-0400 SaO2% (BldA) [Mass fraction] 88 % Maycol TSERING [facility] 12-02-2022 12:58-0400 Body temperature 97.7 [degF] Maycol TSERING [facility] 12-02-2022 12:58-0400 Diastolic blood pressure 75 mm[Hg] Maycol TSERING [facility] 12-02-2022 12:58-0400 Mean blood pressure 102 mm[Hg] Maycol TSERING [facility] 12-02-2022 12:58-0400 Systolic blood pressure 157 mm[Hg] Maycol TSERING [facility] 12-02-2022 12:10-0400 Hourly Rounding Maycol TSERING [facility] 12-02-2022 12:10-0400 Promise to Return Maycol TSERING [facility] 12-02-2022 11:30-0400 Hourly Rounding Maycol TSERING [facility] 12-02-2022 11:30-0400 Promise to Return Maycolyasmine ARRIOLASLIN [facility] 12-02-2022 08:00-0400 Blood Pressure Location Maycolyasmine ARRIOLASLIN [facility] 12-02-2022 08:00-0400 Diastolic blood pressure 79 mm[Hg] Maycol TSERING [facility] 12-02-2022 08:00-0400 gluc 127 mg/dL Maycol TSERING [facility] 12-02-2022 08:00-0400 Heart rate 76 /min Maycol TSERING [facility] 12-02-2022 08:00-0400 Respiratory rate 20 /min Maycol TSERING [facility] 12-02-2022 08:00-0400 Systolic blood pressure 141 mm[Hg] Maycol TSERING [facility] 12-02-2022 07:46-0400 Heart rate 66 /min Maycol TSERING [facility] 12-02-2022 07:46-0400 Respiratory rate 18 /min Maycol TSERING [facility] 12-02-2022 07:40-0400 Respiratory rate 18 /min Maycol TSERING [facility] 12-01-2022 23:32-0400 Body temperature 97.16 [degF] Maycol TSERING [facility] 12-01-2022 23:32-0400 Diastolic blood pressure 77 mm[Hg] Maycol TSERING [facility] 12-01-2022 23:32-0400 Mean blood pressure 101 mm[Hg] Maycol TSERING [facility] 12-01-2022 23:32-0400 Systolic blood pressure 130 mm[Hg] Maycol TSERING [facility] 12-01-2022 20:01-0400 Body temperature 97.16 [degF] Maycol TSERING [facility] 12-01-2022 20:01-0400 Mean blood pressure 101 mm[Hg] Maycol TSERING [facility] 12-01-2022 12:07-0400 Body temperature 97.52 [degF] Maycol TSERING [facility] 12-01-2022 07:30-0400 Body temperature 96.98 [degF] Maycol TSERING [facility] 12-01-2022 06:00-0400 gluc 110 mg/dL Maycol TSERING [facility] 11-30-2022 23:32-0400 FIO2 30 % Maycol TSERING [facility] 11-30-2022 20:04-0400 Mean blood pressure 98 mm[Hg] Maycol TSERING [facility] 11-30-2022 04:38-0400 Mean blood pressure 91 mm[Hg] Maycol TSERING [facility] 11-29-2022 20:16-0400 FIO2 30 % Maycol TSERING [facility] 11-29-2022 19:00-0400 Blood Pressure Location Maycol TSERING [facility] 11-29-2022 08:10-0400 FIO2 30 % Maycol TSERING [facility] 11-29-2022 04:08-0400 gluc 107 mg/dL Maycol CAGLE [facility] 11-29-2022 04:08-0400 Mean blood pressure 80 mm[Hg] Maycol CAGLE [facility] 11-29-2022 00:16-0400 Heart rate 48 /min Maycol CAGLE [facility] 11-28-2022 22:55-0400 Respiratory rate 19 /min Maycol CAGLE [facility] 11-28-2022 21:45-0400 Respiratory rate 18 /min Maycol CAGLE [facility] 11-28-2022 20:45-0400 Respiratory rate 22 /min Maycol CAGLE [facility] 11-28-2022 18:55-0400 SaO2% (BldA) [Mass fraction] 95.4 % Maycol CAGLE [facility] Resp Auto SS 11-28-2022 17:13-0400 Heart rate 59 /min Maycol CAGLE [facility] 09-07-2022 01:10-0400 Diastolic blood pressure 53 mm[Hg] [facility] 09-07-2022 01:10-0400 Heart rate 70 /min [facility] 09-07-2022 01:10-0400 SaO2% (BldA) [Mass fraction] 96 % [facility] 09-07-2022 01:10-0400 Systolic blood pressure 135 mm[Hg] [facility] Encounters Encounter Date Encounter Type Care Provider Facility Start: 01-21-2024 End: 01-21-2024 ambulatory [facility] Start: 01-15-2024 Evaluation and management of inpatient [facility] Start: 01-14-2024 [facility] Start: 01-12-2024 Evaluation and management of inpatient ARIC MIRZA [facility] Start: 01-11-2024 Evaluation and management of inpatient DONNIE [facility] Start: 01-10-2024 Evaluation and management of inpatient DONNIE [facility] Start: 01-10-2024 Evaluation and management of inpatient DONNIE [facility] Start: 01-09-2024 Evaluation and management of inpatient DONNIE [facility] Start: 01-09-2024 End: 01-09-2024 ambulatory [facility] Facility:[facility] Start: 01-09-2024 End: 01-16-2024 Evaluation and management of inpatient YESENIA WHITE [facility] Start: 01-04-2024 End: 01-17-2024 Emergency department patient visit [facility] Start: 02-01-2023 ambulatory Robinruben Garcia acility:[facility] Start: 01-21-2023 End: 01-24-2023 Evaluation and management of inpatient [place] Facility:[facility] Start: 01-21-2023 End: 01-24-2023 Evaluation and management of inpatient Steve OJUKWU [facility] Start: 01-15-2023 End: 01-16-2023 ambulatory Donta SHAISTA Facility:CD:[id number] Start: 01-15-2023 End: 01-15-2023 Off-Site [facility] Start: 12-22-2022 End: 12-23-2022 ambulatory Donta NOONAN Facility:CD:[id number] Start: 12-22-2022 End: 12-22-2022 Off-Site [facility] Start: 12-18-2022 End: 12-20-2022 Evaluation and management of inpatient Maycol A TSERING Facility:[facility] Start: 12-17-2022 End: 12-20-2022 Evaluation and management of inpatient Maycol A TSERING [facility] Start: 12-14-2022 End: 01-16-2023 ambulatory Donta NOONAN Facility:CD:[id number] Start: 12-14-2022 End: 01-16-2023 In-Between Visit [facility] Start: 12-11-2022 ambulatory Donta NOONAN [facility]: [facility] Start: 12-03-2022 End: 12-03-2022 Off-Site [facility] Start: 12-03-2022 End: 12-04-2022 ambulatory Donta NOONAN Facility:CD:[id number] Start: 12-02-2022 End: 01-16-2023 ambulatory Donta SAXE Facility:[facility] Start: 11-30-2022 ambulatory Facility:[id number] Start: 11-30-2022 ambulatory Facility:[id number] Start: 11-29-2022 ambulatory Facility:[id number] Start: 11-29-2022 End: 12-02-2022 Evaluation and management of inpatient Maycol A TSERING Facility:[facility] Start: 11-28-2022 End: 12-02-2022 Evaluation and management of inpatient Maycol A TSERING [facility] Start: 11-26-2022 End: 11-27-2022 ambulatory Bienvenido Barroso Facility:[facility] Start: 11-26-2022 End: 11-26-2022 Patient encounter procedure Bienvenido Barroso [facility] Start: 09-26-2022 End: 09-28-2022 ambulatory Ganesh S Rei Facility:[facility] Start: 2022 End: 2022 ambulatory Et3 [facility] Triage, Treat and Transport Start: 2022 End: 2022 Emergency department patient visit Et3 [facility] Emergency Triage, Treat and Transport [...] Visi t (G0439) [facility] Well[facility]G0439) [facility] Start: 05-14-2018 Pneumococcal vaccination Pneum ococcal Vaccine(s) (65+ yrs) (2 - PPSV23 if available, else PCV20) [facility] Start: 1994 Shingles (RZV) Vacci ne (1 of 2) Shingles (RZV) Vaccine (1 of 2) [facility] Start: 1962 Hepatitis C screening Hepatitis C An tibody [facility] Start: 1962 Tetanus + diphtheria + acellular pertussis vaccine (product) Tdap Booster [facility] Immunizations Immunization Date Immunization Notes Care Provider Ryder pitt 03-12-2022 SARS-CoV-2 (COVID-19 ) mRNAMUL.[id number] [facility] 03-17-2021 Influenza, injectabl e, high-dose seasonal, quadrivalent, 0.7 mL, preservative free (XBT=467) [facility] 07-15-2020 Pfizer (12+ yrs) SARS-COV-2 (COVID-19) vaccine, mRNA, spike protein, LNP, pres. free, 30 mcg/0.3mL dose (EOI=167) [facility] 06-26-2020 Pfizer (12+ yrs) SARS-COV-2 (COVID-19) vaccine, mRNA, spike protein, LNP, pres. free, 30 mcg/0.3mL dose (YXR=948) [facility] 06-23-2019 influenza, high dose seasonal, preservative-free [facility] 05-14-2017 influenza, high dose seasonal, preservative-free [facility] 05-14-2017 pneumococcal conjuga te vaccine, 13 valent [facility] 04-04-2014 influenza, injectabl e, madin cee canine kidney, preservative free [facility] NEGATED: Highlighted row has not occurred!06-15-2014 pneumococcal polysaccharide vaccine, 23 valent Bienvenido Barroso [facility] Comment on above: Result Note: pt had vaccine last year per Payers Date Payer Category Payer Medicaid [id number] 2023 Self-pay 2022 Unknown [id number] 2022 Medicare Tilera D [employer] [id number] 2022-Present [address] [place] [address] Medicare [id number] 2022 Unknown [id number] 1944 Unknown [id number] 2.840.1.338810.3.579.2.356 1944 Unknown [id number] 2..840.1.602095.3.579.2.356 1944 Unknown [id number] 2.16.840.1.571519.3.579.2.356 1944 Unknown [id number] 2.16.840.1.187934.3.579.2.727 1944 Unknown [id number] 2.16.840.1.870317.3.579.2.727 1944 Unknown [id number] 2.16.840.1.309823.3.579.2. 1944 Unknown [id number] 2.16.840.1.498444.3.579.2. 1944 Unknown [id number] 2.16.840.1.934594.3.579.2. 1944 Unknown [id number] 2.16.840.1.524059.3.579.2. 1944 Unknown [id number] 2.16.840.1.742303.3.579.2. 1944 Unknown [id number] 2.16.840.1.981335.3.579.2. 1944 Unknown [id number] 2.16.840.1.424379.3.579.2. 1944 Unknown [id number] 2.16.840.1.245644.3.579.2. 1944 Unknown [id number] 2.16.840.1.297007.3.579.2. 1944 Unknown [id number] 2.16.840.1.906261.3.579.2. 1944 Unknown [id number] 2.16.840.1.697952.3.579.2. 1944 Unknown [id number] 2.16.840.1.175920.3.579.2.1286 Social History Date Type Detail Facility Tobacco smoking status NHIS Tobacco smoking consumption unknown [facility] Start: 1945 Sex Assigned At [facility] Start: 04-24-2021 Tobacco smoking status Ex-smoker (finding) [facility] Sex Assigned At Male [facility] Functional Status Date Assessment Result Facility 01-21-2023 Functional Status No [facility] 01-21-2023 Functional Status [facility] 12-18-2022 Functional Status N/A [facility] 12-17-2022 Functional Status [facility] 11-29-2022 Functional Status N/A [facility] 11-28-2022 Functional Status [facility] Clinical Notes 09-07-2022 to 01-21-2024 Note Date & Type Note Facility 01-21-2024 Note Patient underwent [employer] pacemaker implantation due to third-degree AV block and junctional rhythm on 01/10/2024. He is here today for wound check. Patient denies any complaint of pain or swelling or oozing. Pacemaker incision appears to be healing well. There is no oozing or swelling or hematoma or redness or warmth. The patient was advised that he can shower standing and to continue to avoid bathtub. He was advised to continue to avoid driving or lifting or extending the left arm for total 3 weeks from the date of procedure. The patient has an appointment in the device clinic on 02/29/2024. Will give him a follow-up appointment with cardiology in [address] [facility] 01-16-2024 Note Physical Therapy Physical Therapy Patient Name: Clyde Humphrey Today's Date: 01/16/2024 Admit Date: 01/09/2024 Time: 8:55 AM Attempted PT treatment today however RN reports patient being agitated at this time, will check back later as able. No charges associated with this encounter. [facility] 01-16-2024 Note discharge planning: to [facility] [id number] Insurance Approval Letter received for Patient to discharge to [facility]; Discharge Order in place; notice of insurance approval and discharge order sent to SNF, via [employer] system, with request to confirm they have a bed available for Patient to return to them today (awaiting reply) 1129 communication received from [facility], via [employer] system: Yes please call report to [phone] station 2. Please FAX or med list to [phone] as I am not in the building today ^bedside RN and [facility] notified of bed available today 1135 Patient resting in bed, entry writer unable to wake ([phone]) PC to Patient's spouse, to notify of discharge order and bed available and transport arrangements; no answer; vm left with contact information and request for return call 1152 AVS faxed to [facility] [phone] ([phone]) PC to Patient's spouse, to notify of discharge order and bed available and transport arrangements; no answer; second voicemail not left ([phone]) PC to Patient's daughter Amy, to notify of discharge order and transport time; Amy stating Patient's spouse lives at [facility] as well, so would not be answering her phone; entry writer notified Amy of 1:30p pickup time for transportation to return to [facility] 1206 AVS and transport time sent to [facility] via [employer] system Discharge Transportation Packet placed with Patient's physical charte Transportation scheduled for 1:30p pickup Nurse call report to [facility] [phone] Station 2 ^bedside RN, [facility] notified [facility] 01-16-2024 Note Hospital Medicine Daily Progress Note - 01/16/2024 7:25 AM; Room: [address] [place] [address] Admission: 01/09/2024 1:24 AM; Length of stay: 7 days THE HOSPITALIST TEAM PREFERS TO USE [employer] CHAT FOR COMMUNICATION 7AM-7PM. IF I DO NOT RESPOND WITHIN 15 MINUTES, PLEASE PAGE ME/CALL THROUGH THE AGRICULTURAL EXTENSION AGENT. FROM 7PM-7AM, PLEASE PAGE [phone](COVR) Code Status: Full Code Barriers to Discharge: None Expected Discharge Date: 01/15 Discharge Destination: senior care facility Overview Patient is seen for evaluation and management of heart block. Subjective Patient seen and examined. Resting comfortably in bed on my exam but RN report increased agitation overnight and this morning Physical Exam Visit Vitals BP 118/61 (BP Location: Left arm, Patient Position: Lying) Pulse 70 Temp 36.8 ???C (98.2 ???F) (Temporal) Resp 24 Intake/Output Summary (Last 24 hours) at 01/16/2024 0725 Last data filed at 01/16/2024 0630 Gross per 24 hour Intake 1000 ml Output 3775 ml Net -2775 ml Estimated body mass index is 34.16 kg/m??? as calculated from the following: Height as of this encounter: 1.651 m (5' 5 ). Weight as of this encounter: 93.1 kg (205 lb 4.8 oz). Constitutional: NAD, Disoriented Eyes: EOMI, normal conjunctiva Mouth: Moist, no lesions CV: RRR, paced, normal S1-S2, no murmurs Resp: CTA, no crackles or wheezing Abd: Soft, non-tender Extremities: No swelling, 2+ distal pulses Skin : b/l periorbital ecchymosis, L chest wall with mild swelling and ecchymosis Neuro: Disoriented, no focal deficits Psych: Appropriate mood and affect Active Inpatient Problems Principal Problem: Heart block Assessment and Plan Third-degree A-V block Inferior Q waves on EKG Chronic diastolic heart failure -s/p DC-PPM 01/09 -BNP 1312 -I/O +1780 -Start lasix 40 IV every day and aldactone 12.5 with plan to uptitrate as BP allows -Add Farxiga once able -Cardiology signed off; follow up in clinic -PPM pocket evaluation unremarkable. Continue to monitor Periorbital ecchymosis Middle ear soft tissue densities -Trauma consulted -CT head and CT c-spine negative for acute processes -Continue to monitor for neurological changes AKIL, resolved -Daily BMP Normocytic anemia Iron deficiency -Daily CBC -Fe PO daily T2DM -Continue MTF 1000 BID Alzheimer dementia Agitation -Seroquel nightly prn -POA VTE Prophylaxis: Heparin subcutaneous - Hold for now until PPM pocket evaluated Scheduled Meds aspirin, 81 mg, oral, Daily carbamide peroxide, 5 drop, Each Ear, BID citalopram, 20 mg, oral, Daily cyanocobalamin, 1,000 mcg, oral, Daily divalproex, 500 mg, oral, q8h PINEDA doxycycline, 100 mg, oral, BID furosemide, 40 mg, intravenous, Daily heparin (porcine), 5,000 Units, subcutaneous, q8h PINEDA lovastatin, 40 mg, oral, Nightly metFORMIN XR, 1,000 mg, oral, BID with meals spironolactone, 12.5 mg, oral, Daily tamsulosin, 0.4 mg, oral, BID Oxygen Therapy, Pertinent Investigations Hematology: Results from last 7 days Lab Units 01/16/24 0454 01/15/24 0540 WBC AUTO 10*3/uL 7.84 7.86 HEMOGLOBIN g/dL 11.9* 11.7* HEMATOCRIT % 37.7* 37.4* MCV fL 90.0 91.0 PLATELETS AUTO 10*3/uL 159 156 Chemistry: Results from last 7 days Lab Units 01/16/24 0454 01/15/24 0540 01/14/24 0534 01/13/24 0830 01/12/24 0407 01/11/24 0350 SODIUM mmol/L 142 144 141 139 138 136 POTASSIUM mmol/L 4.2 4.2 4.5 4.3 4.0 4.0 CHLORIDE mmol/L 104 106 104 105 103 104 CO2 mmol/L 29 29 30 29 28 26 BUN mg/dL 27* 25 20 16 19 29* CREATININE mg/dL 1.02 0.98 0.93 0.74 0.84 0.84 GLUCOSE mg/dL 99 101* 96 106* 85 118* MAGNESIUM mg/dL -- -- -- -- 2.0 2.3 CALCIUM mg/dL 8.8 8.6 8.5* 8.3* 8.4* 8.3* PHOSPHORUS mg/dL -- -- -- 2.7 2.1* 2.0* Results from last 7 days Lab Units 01/12/24 0407 01/11/24 1052 AMMONIA umol/L -- 41 AST U/L 16 -- ALT U/L 17 -- ALK PHOS U/L 33* -- BILIRUBIN TOTAL mg/dL 0.4 -- Results from last 7 days Lab Units 01/14/24200401/14/244 01/14/24 1049 01/13/24200401/13/24 1626 01/13/24 1114 POCT GLUCOSE mg/dL 111* 151* 205* 107* 115* 164* Historical Values: (Includes values prior to this admission) No results found for: PREALBUMIN , TSH , T3FREE , FREET4 , CORTISOL , FEV1 , EBS3XQI , DLCO , RVSP , HDL , LDL Lab Results Component Value Date [id number] 179 (L) 01/13/2024 IRON 37 (L) 01/13/2024 TIBC 244 (L) 01/13/2024 Imaging US chest Narrative: US CHEST HISTORY: Pain at pacemaker placement site. COMPARISON: None. Findings: Focused scanning performed along the anterior chest wall on the left at the site of prior pacemaker placement. There is no evidence of fluid collection or mass. No visible abnormalities. May consider CT if clinically warranted Impression: 1. Unremarkable exam Electronically signed: Miguel Santiago MD. Discharge Planning Expected Discharge Disposition: [facility] Facility (03) PT Disc (more content not included)... [facility] 01-15-2024 Note Hospital Medicine Discharge Summary Final Discharge Diagnosis: Third degree heart block Admission Diagnosis: Heart block [I45.9] Hospital course: 78yoM with history of dementia, seizure disorder, COPD, hypertension who was admitted to [facility] on 01/08 for complete heart block. Patient initially presented to [facility] for multiple episodes of presyncope and heart rate was noted to be in 30s. Confirmed complete AV disassociation and the patient was transferred to [facility] for EP evaluation. He was initially sent to the ICU and successfully had pacemaker placed on 01/09. Cardiology then signed off on 01/10. The patient was transferred to floor on 01/12 during which he began to exhibit swelling and ecchymosis to pacemaker pocket area. Cardiology was unavailable for evaluation, although it was stated to check for blood cultures. It was noted that he had no fever, WBC, erythema, or purulent discharge and already was placed on Doxycycline for prophylaxis. EKG, chest x-ray, ultrasound, and hemodynamics were stable so the patient was cleared for discharge. The patient did have CT head while in the ICU due to development of periorbital ecchymosis. Trauma team was also consulted for this. There is no evidence for acute processes or trauma on the CT scan. There was concerns for right middle ear soft tissue density at the location of previously noted carcinoma in situ. Surgical, Invasive or Diagnostic Procedures Done During Admission: Pacemaker/ICD implantation Consultations During Admission: Cardiology and Trauma Dear Dr. Estefania MD, Albert is advised to follow up with you within 1-2 weeks. Items to follow up in ambulatory setting: Follow up with Cardiology 01/16 for PPM evaluation Follow-up with: Cardiology Scheduled appointments: Future Appointments Date Time Provider Department Center 01/17/2024 1:30 PM [facility] CV CLINIC DEVICE CHECK HVC CARD UT HeartVAS Your medication list START taking these medications Instructions Last Dose Given Next Dose Due cyanocobalamin 1,000 mcg tablet Commonly known as: Vitamin B-12 Start taking on: January 16, 2024 Take 1 tablet (1,000 mcg) by mouth in the morning for 98 doses. Do not start before January 16, 2024. divalproex 500 mg EC tablet Commonly known as: Depakote Take 1 tablet (500 mg) by mouth every 8 (eight) hours for 283 doses. Do not crush, chew, or split. doxycycline 100 mg capsule Commonly known as: Vibramycin Take 1 capsule (100 mg) by mouth two times daily for 13 doses. Take with at least 8 ounces (large glass) of water, do not lie down for 30 minutes after CHANGE how you take these medications Instructions Last Dose Given Next Dose Due spironolactone 25 mg tablet Commonly known as: Aldactone Start taking on: January 16, 2024 What changed: how much to take Take 0.5 tablets (12.5 mg) by mouth in the morning for 96 doses. Do not start before January 16, 2024. CONTINUE taking these medications Instructions Last Dose Given Next Dose Due acetaminophen 500 mg tablet Commonly known as: Tylenol albuterol 2.5 mg /3 mL (0.083 %) nebulizer solution aspirin 81 mg EC tablet cetirizine 10 mg tablet Commonly known as: ZyrTEC cholecalciferol 50 MCG (1999 UT) tablet Commonly known as: Vitamin D-3 citalopram 20 mg tablet Commonly known as: CeleXA furosemide 40 mg tablet Commonly known as: Lasix ipratropium-albuteroL 0.5-2.5 mg/3 mL nebulizer solution Commonly known as: Duo-Neb LORazepam 0.5 mg tablet Commonly known as: Ativan lovastatin 40 mg 24 hr tablet Commonly known as: Altoprev metFORMIN XR 500 mg 24 hr tablet Commonly known as: Glucophage-XR nystatin 100,000 unit/gram powder Commonly known as: Mycostatin tamsulosin 0.4 mg 24 hr capsule Commonly known as: Flomax STOP taking these medications valproic acid 250 mg capsule Commonly known as: Depakene Where to Get Your Medications These medications were sent to [facility] - [place], [place] - [address], [facility] [address] divalproex 500 mg EC tablet spironolactone 25 mg tablet Information about where to get these medications is not yet available Ask your nurse or doctor about these medications cyanocobalamin 1,000 mcg tablet doxycycline 100 mg capsule Clyde has No Known Allergies. Disposition: [facility] () Discharge Condition: Stable Code Status: Full Code Diagnostic Results Hematology: Results from last 7 days Lab Units 01/15/24 0540 01/14/24 1801 01/14/24 0534 01/10/24 0324 01/09/24 0308 WBC AUTO 10*3/uL 7.86 -- 8.40 < > 12.07* HEMOGLOBIN g/dL 11.7* 13.1 12.3* < > 13.1 HEMATOCRIT % 37.4* 42.2 38.6* < > 39.6 MCV fL 91.0 -- 89.4 < > 87.6 PLATELETS AUTO 10*3/uL 156 -- 159 < > 235 INR -- -- -- -- 0.98 < > = values in this interval not displayed. Chemistry: Results from last 7 days Lab Units 01/15/24 (more content not included)... [facility] 01-14-2024 Note 01/14/24 1300 Post Acute Info Authorization started for SNF () Facility name [facility] When was authorization started? 01/13/24 What time was authorization started? 1038 Reference number for submission ([id number]) Determination Approved OTM staff notified Sherley Rivers When was authorization received? 01/14/24 What time was authorization received? 1302 When does authorization ? 01/21/24 How are we submitting authorization Website Portal What insurance are we submitting through (Web[employer]) Approved authorization for [facility], OTM notified. [facility] 01-14-2024 Note Hospital Medicine Daily Progress Note - 01/14/2024 11:18 AM; [facility] Admission: 01/09/2024 1:24 AM; Length of stay: 5 days THE HOSPITALIST TEAM PREFERS TO USE [employer] CHAT FOR COMMUNICATION 7AM-7PM. IF I DO NOT RESPOND WITHIN 15 MINUTES, PLEASE PAGE ME/CALL THROUGH THE AGRICULTURAL EXTENSION AGENT. FROM 7PM-7AM, PLEASE PAGE [phone](COVR) Code Status: Full Code Barriers to Discharge: Precert Expected Discharge Date: 01/13 Discharge Destination: senior care facility Overview Patient is seen for evaluation and management of heart block. Subjective Patient seen and examined. Seems to be doing well this morning with no acute complaints. In afternoon, RN noted some swelling this afternoon with some tenderness on palpation. Area non-erythematous. Patient not wearing sling and puts pressure on L shoulder Physical Exam Visit Vitals BP 106/55 (BP Location: Left arm, Patient Position: Lying) Pulse 60 Temp 36.1 ???C (97 ???F) (Temporal) Resp 18 Intake/Output Summary (Last 24 hours) at 01/14/2024 1118 Last data filed at 01/14/2024 0936 Gross per 24 hour Intake 600 ml Output 1500 ml Net -900 ml Estimated body mass index is 36.1 kg/m??? as calculated from the following: Height as of this encounter: 1.651 m (5' 5 ). Weight as of this encounter: 98.4 kg (216 lb 14.9 oz). Constitutional: NAD, Disoriented Eyes: EOMI, normal conjunctiva Mouth: Moist, no lesions CV: RRR, paced, normal S1-S2, no murmurs Resp: CTA, no crackles or wheezing Abd: Soft, non-tender Extremities: No swelling, 2+ distal pulses Skin : b/l periorbital ecchymosis Neuro: Disoriented, no focal deficits Psych: Appropriate mood and affect Active Inpatient Problems Principal Problem: Heart block Assessment and Plan Third-degree A-V block Inferior Q waves on EKG Chronic diastolic heart failure -s/p DC-PPM 01/09 -BNP 1312 -I/O +1780 -Start lasix 40 IV every day and aldactone 12.5 with plan to uptitrate as BP allows -Add Farxiga once able -Cardiology signed off; follow up in clinic -Check H&H, EKG, US chest wall, CXR 2 view Periorbital ecchymosis Middle ear soft tissue densities -Trauma consulted -CT head and CT c-spine negative for acute processes -Continue to monitor for neurological changes AKIL, resolved -Daily BMP Normocytic anemia -Check iron panel -Daily CBC T2DM -Continue MTF 1000 BID Alzheimer dementia -Appears at baseline -POA VTE Prophylaxis: Heparin subcutaneous - Hold for now until PPM pocket evaluated Scheduled Meds aspirin, 81 mg, oral, Daily citalopram, 20 mg, oral, Daily divalproex, 500 mg, oral, q8h PINEDA doxycycline, 100 mg, oral, BID furosemide, 40 mg, intravenous, Daily heparin (porcine), 5,000 Units, subcutaneous, q8h PINEDA lovastatin, 40 mg, oral, Nightly metFORMIN XR, 1,000 mg, oral, BID with meals spironolactone, 12.5 mg, oral, Daily tamsulosin, 0.4 mg, oral, BID Oxygen Therapy, Pertinent Investigations Hematology: Results from last 7 days Lab Units 01/14/24 0534 01/13/24 0830 01/10/24 0324 01/09/24 0308 WBC AUTO 10*3/uL 8.40 7.58 < > 12.07* HEMOGLOBIN g/dL 12.3* 11.4* < > 13.1 HEMATOCRIT % 38.6* 35.7* < > 39.6 MCV fL 89.4 89.5 < > 87.6 PLATELETS AUTO 10*3/uL 159 152 < > 235 INR -- -- -- 0.98 < > = values in this interval not displayed. Chemistry: Results from last 7 days Lab Units 01/14/24 0534 01/13/24 0830 01/12/24 0407 01/11/24 0350 SODIUM mmol/L 141 139 138 136 POTASSIUM mmol/L 4.5 4.3 4.0 4.0 CHLORIDE mmol/L 104 105 103 104 CO2 mmol/L 30 29 28 26 BUN mg/dL 20 16 19 29* CREATININE mg/dL 0.93 0.74 0.84 0.84 GLUCOSE mg/dL 96 106* 85 118* MAGNESIUM mg/dL -- -- 2.0 2.3 CALCIUM mg/dL 8.5* 8.3* 8.4* 8.3* PHOSPHORUS mg/dL -- 2.7 2.1* 2.0* Results from last 7 days Lab Units 01/12/24 0407 01/11/24 1052 AMMONIA umol/L -- 41 AST U/L 16 -- ALT U/L 17 -- ALK PHOS U/L 33* -- BILIRUBIN TOTAL mg/dL 0.4 -- Results from last 7 days Lab Units 01/14/24 1049 01/13/24200401/13/24 1626 01/13/24 1114 01/13/24 0716 01/12/242027 POCT GLUCOSE mg/dL 205* 107* 115* 164* 116* 153* Historical Values: (Includes values prior to this admission) No results found for: PREALBUMIN , TSH , T3FREE , FREET4 , CORTISOL , FEV1 , JQF9LSX , DLCO , RVSP , HDL , LDL Lab Results Component Value Date [id number] 179 (L) 01/13/2024 IRON 37 (L) 01/13/2024 TIBC 244 (L) 01/13/2024 Imaging Electrophysiology procedure Narrative: DUAL CHAMBER PACEMAKER IMPLANT PROCEDURE NOTE DATE OF PROCEDURE: 01/10/24 PERFORMING PHYSICIAN: Dr. Reno Welch CONSENT: Patient LOCATION: EP Lab PROCEDURE PERFORMED: 1. Implantation of pacemaker ([employer]) 2. Ultrasound guided venous access INDICATIONS: 1. 3rd degree AV block 2. Junctional bradycardia PROCEDURAL SEDATION: Versed and Fentanyl. Moderate sedation was administered by the sedation nurse under my supervision and noted in the (more content not included)... [facility] 01-14-2024 Note Occupational Therapy Occupational Therapy Treatment Patient Name: Clyde Humphrey : 1945 Today's Date: 01/14/2024 Problem List Patient Active Problem List Diagnosis Heart block Pain: Objective General Visit Information: OT Last Visit OT Received On: 01/14/24 General Subjective: RN reports pt is appropriate for session. On arrival pt KLAMATH but use of writing communication for pt to read, pt agreeable to getting up to chair for therapy. Treatment Duration (min): 20 Minutes (1030 - 1050) Bed Mobility Bed Mobility 1 Bed Mobility From 1: Supine Bed Mobility Type 1: To Bed Mobility to 1: Short sit Level of Assistance 1: Minimum assistance Bed Mobility Comments 1: for hand placement on bed rail and complete upright position for trunk. also blankets and lines Transfers Transfer 1 Transfer From 1: Bed Transfer Type 1: To Transfer to 1: Chair with arms Technique 1: Stand to sit, Sit to stand Transfer Device 1: rolling walker Transfer Level of Assistance 1: Minimum assistance Trials/Comments 1: to advance walker and keep walker in safe position for functional ambulation as pt take small steps to chair. Activity Tolerance Activity Tolerance Ambulation comments: small shuffled gait Other Activity Other Activity 1: at end of session pt comfortable in chair with chair alarm on, call light, and items in reaching distance. Nurse aide present. Assessment/Plan OT Assessment OT Assessment/FAREED Summary: pt will benefit from continued therapy to increase safety with functional mobility and transfers and to increase participation with ADLs. OT Education/Comments: bed mobility and functional transfers Plan OT Plan: Skilled OT OT Goals: Multi-Disciplinary Problems (from Occupational Therapy) Active Problems Problem: Balance Start Date: 01/12/24 Goal Start Date Expected End Date End Date LTG - Patient will maintain stand balance to allow for safe mobility 01/12/24 02/09/24 -- Problem: Bathing Start Date: 01/12/24 Goal Start Date Expected End Date End Date LTG - Patient will utilize adaptive techniques to bathe body with moderate assistance 01/12/24 02/09/24 -- Problem: Dressings Lower Extremities Start Date: 01/12/24 Goal Start Date Expected End Date End Date LTG - Patient will dress lower body with moderate assistance 01/12/24 02/09/24 -- Problem: Dressing Upper Extremities Start Date: 01/12/24 Goal Start Date Expected End Date End Date LTG - Patient will complete upper body dressing with minimal assistance 01/12/24 02/09/24 -- Problem: Toileting Start Date: 01/12/24 Goal Start Date Expected End Date End Date LTG - Patient will utilize adaptive techniques/equipment to complete daily toileting tasks with minimal assistance 01/12/24 02/09/24 -- Problem: Transfers Start Date: 01/12/24 Goal Start Date Expected End Date End Date LTG - Patient will perform bed mobility with stand-by/contact guard 01/12/24 02/09/24 -- Problem: OT Misc Start Date: 01/12/24 Goal Start Date Expected End Date End Date min A adl transfers standing five minutes 01/12/24 02/09/24 -- [facility] 01-13-2024 Note Speech Scrap Preparation Supervisor ology Speech/Language Pathology Clinical Swallow Assessment Rx: Dysphagia III chopped meat and Thin liquids Full supervision at meals and to check for pocketing due to not having his dentures at hospital Crush meds in puree Pt should be sitting in upright 90 degree hip flexion during meals Evaluation was to assess pt due to difficulty chewing at meals with noted coughing at times. Called and spoke to Sierra RN at [facility] and she reported he always wears dentures and does not having swallowing issues prior to this admission at [facility]. Baseline Assessment Temperature Spikes Noted: Not applicable History of Intubation: No Behavior/Cognition: Alert, Cooperative (very hard of hearing due to not having his hearing aides in hospital) Dentition: Edentulous (per [facility], pt wears dentures, but they are not at hospital) Patient Positioning: Upright in bed Baseline Vocal Quality: Normal Volitional Swallow: Within Functional Limits Diet Level Prior to exam: Regular diet with thin liquid No family present for exam History of Present Illness Clyde Humphrey is a 78-year-old gentleman with past medical history significant for dementia has been transferred from [facility] due to high degree AV block. The patient is unable to answer questions appropriately due to his dementia so history was only taken by the signout received from [place]. The patient was noted to have multiple episodes of presyncope over the last few days and today his heart rate was noted to be in 30s upon their initial evaluation. EKG showed a complete A-V dissociation after which thick reached out to [facility] cardiology for possible pacemaker placement. Due to significant bradycardia the patient is being transferred to [facility] ICU for close hemodynamic monitoring and management. Laryngeal Function Apraxia: None present Intelligibility: Intelligible Intelligibility Ratin%-99% Consistencies Assessed Consistencies Assessed: Yes Ground Presentation: Spoon Oral: Increased Anterior to Posterior Transit (pt required extra time to chew the ground foods) Pharyngeal: Within Functional Limits Solid Presentation: Spoon Oral: Impaired Mastication, Increased Anterior to Posterior Transit (Pt required extra time to adequately chew the solid food items due to not having dentures present.) Pharyngeal: Within Functional Limits Aspiration Risk Risk for Aspiration: Yes Diet Solids Recommendation: (Dysphagia III chopped meats) Diet Liquids Recommendations: Thin liquids Compensatory Swallowing Strategies: Upright as possible for all oral intake, Full supervision with meals, Other (Comment) (check for oral stasis due to not having his dentures at hospital) Recommended Form of Medications: Crushed Recommendations Duration of Treatment: [address] [facility] 01-13-2024 Note 01/13/24 1038 Post Acute Info Authorization started for SNF (03) Facility name [facility] Facility NP [phone] When was authorization started? 01/13/24 What time was authorization started? 1038 Reference number for submission ([id number]) How are we submitting authorization Website Portal What insurance are we submitting through (WebEvents) Submitted precert request for [facility], OTM to follow. [facility] 01-13-2024 Note Attempted to call Wi pee Soumya to confirm return to [facility] as well as get consent to start pre-cert with no answer and going to voicemail. Called listed aidan Parks [phone] who answered and stated that Soumya has stage 4 cancer and is also currently at [facility] and also cited that her cognition has declined substantially. Aidan Parks also cited that she is pt's HCPOA. Obtained confirmation of intent to return and also to start the pre-cert to return to [facility]. Requested OTM to start pre-cert and updated AVS. UPDATE 11:05AM- [facility] confirmed that aidan Parks is an alternate HCPOA and also advised it would be better to contact her. [facility] 01-13-2024 Note Hospital Medicine Daily Progress Note - 01/13/2024 8:09 AM; Room: [address] [place] [address] Admission: 01/09/2024 1:24 AM; Length of stay: 4 days THE HOSPITALIST TEAM PREFERS TO USE [employer] FOR COMMUNICATION 7AM-7PM. IF I DO NOT RESPOND WITHIN 15 MINUTES, PLEASE PAGE ME/CALL THROUGH THE AGRICULTURAL EXTENSION AGENT. FROM 7PM-7AM, PLEASE PAGE [phone](COVR) Code Status: Full Code Barriers to Discharge: Precert Expected Discharge Date: 01/13 Discharge Destination: senior care facility Overview Patient is seen for evaluation and management of heart block. Subjective Patient seen and examined. Very hard of hearing and sleeping on exam. States I can't hear you, do what you need to do. Fell asleep while writing questions on paper. No apparent pain. Physical Exam Visit Vitals BP 149/54 (BP Location: Left arm, Patient Position: Lying) Pulse 60 Temp 35.7 ???C (96.3 ???F) (Temporal) Resp 21 Intake/Output Summary (Last 24 hours) at 01/13/2024 0809 Last data filed at 01/13/2024 0535 Gross per 24 hour Intake 200 ml Output -- Net 200 ml Estimated body mass index is 36.28 kg/m??? as calculated from the following: Height as of this encounter: 1.651 m (5' 5 ). Weight as of this encounter: 98.9 kg (218 lb). Constitutional: NAD, AOx3 Eyes: EOMI, normal conjunctiva Mouth: Moist, no lesions CV: RRR, paced, normal S1-S2, no murmurs Resp: CTA, no crackles or wheezing Abd: Soft, non-tender Extremities: No swelling, 2+ distal pulses Skin : b/l periorbital ecchymosis Neuro: AOx3, no focal deficits Psych: Appropriate mood and affect Active Inpatient Problems Principal Problem: Heart block Assessment and Plan Third-degree A-V block Inferior Q waves on EKG Chronic diastolic heart failure -s/p DC-PPM 01/09 -BNP 1312 -I/O +1780 -Start lasix 40 IV every day and aldactone 12.5 with plan to uptitrate as BP allows -Add Farxiga once able -Cardiology signed off; follow up in clinic Periorbital ecchymosis Middle ear soft tissue densities -Trauma consulted -CT head and CT c-spine negative for acute processes -Continue to monitor for neurological changes AKIL, resolved -Daily BMP Normocytic anemia -Check iron panel -Daily CBC T2DM -Continue MTF 1000 BID Alzheimer dementia -Appears at baseline -POA VTE Prophylaxis: Heparin subcutaneous Scheduled Meds citalopram, 20 mg, oral, Daily divalproex, 500 mg, oral, q8h PINEDA doxycycline, 100 mg, oral, BID heparin (porcine), 5,000 Units, subcutaneous, q8h [facility] metFORMIN XR, 1,000 mg, oral, BID with meals tamsulosin, 0.4 mg, oral, BID Oxygen Therapy, Pertinent Investigations Hematology: Results from last 7 days Lab Units 01/12/24 0407 01/11/24 0349 01/10/24 0324 01/09/24 0308 WBC AUTO 10*3/uL 8.81 7.44 < > 12.07* HEMOGLOBIN g/dL 11.1* 11.2* < > 13.1 HEMATOCRIT % 34.5* 34.0* < > 39.6 MCV fL 89.4 86.5 < > 87.6 PLATELETS AUTO 10*3/uL 146* 155 < > 235 INR -- -- -- 0.98 < > = values in this interval not displayed. Chemistry: Results from last 7 days Lab Units 01/12/24 0407 01/11/24 0350 01/10/24 0324 SODIUM mmol/L 138 136 129* POTASSIUM mmol/L 4.0 4.0 3.9 CHLORIDE mmol/L 103 104 97* CO2 mmol/L 28 26 21 BUN mg/dL 19 29* 56* CREATININE mg/dL 0.84 0.84 1.12 GLUCOSE mg/dL 85 118* 212* MAGNESIUM mg/dL 2.0 2.3 1.7* CALCIUM mg/dL 8.4* 8.3* 8.4* PHOSPHORUS mg/dL 2.1* 2.0* 2.0* Results from last 7 days Lab Units 01/12/24 0407 01/11/24 1052 AMMONIA umol/L -- 41 AST U/L 16 -- ALT U/L 17 -- ALK PHOS U/L 33* -- BILIRUBIN TOTAL mg/dL 0.4 -- Results from last 7 days Lab Units 01/13/24 0716 01/12/24 2028 01/12/24 1602 01/12/24 1214 01/12/24 0752 01/11/24 2123 POCT GLUCOSE mg/dL 116* 153* 134* 210* 103 151* Historical Values: (Includes values prior to this admission) No results found for: PREALBUMIN , TSH , T3FREE , FREET4 , CORTISOL , FEV1 , AIK5DOV , DLCO , RVSP , HDL , LDL No results found for: [id number] , IRON , TIBC , C3 , C4 , EWELINA , CANCA , ASO , PSA , CEA , CA125 , CA199 , AFP , CA153 Imaging CT head wo IV contrast Narrative: HISTORY: A 78-year-old male with the history of the trauma. Bilateral black eyes. Abnormal CT scan of the brain with opacification of the ears EXAM/TECHNIQUE: Multidetector spiral CT scan of brain is obtained. Multiplanar reconstruction images are reformatted. COMPARISON: Comparison is made with the CT scan of the brain of 01/10/2024. FINDINGS: There is generalized cortical atrophy. Ventricular system is normal in size and configuration. There are hypodense regions in the deep white matter supratentorially consistent with small vessels ischemic change. There is no evidence of intracranial hemorrhage or acute pathology. The cerebellum and brainstem are unremarkable.No mass effect, midline shift of the structures or extra-axial fluid collections are noted. The calvarium is intact. There are intracranial (more content not included)... [facility] 01-12-2024 Note Daughter, felipe Parks via phone concerning pt transfer to [facility] from [facility] and pt status improvements/plan of care. [facility] 01-12-2024 Note ------ Attestation signed by Cody Richardson MD at 01/12/2024 11:36 PM I reviewed the salient portions of the patient history. I have seen and examined the patient during rounds with the resident/fellow. I repeated the guajardo components of the exam. Agree with the noted assessment and plan. Cody Richardson MD [facility] Pulmonary and Critical Care Medicine ------ Pulmonary Progress Note Patient - Clyde Humphrey Age - 78 y.o. - 1945 [facility] # - [id number] Date of Admission - 01/09/2024 1:24 AM HPI/Hospital Course Clyde Humphrey is a 78-year-old gentleman with past medical history significant for dementia has been transferred from [facility] due to high degree AV block. The patient is unable to answer questions appropriately due to his dementia so history was only taken by the signout received from [facility]. The patient was noted to have multiple episodes of presyncope over the last few days and today his heart rate was noted to be in 30s upon their initial evaluation. EKG showed a complete A-V dissociation after which thick reached out to [facility] cardiology for possible pacemaker placement. Due to significant bradycardia the patient is being transferred to [facility] ICU for close hemodynamic monitoring and management. SUBJECTIVE Patient seen and examined at bedside s/p PPM 2 days ago. No overnight events. CTH findings noted, consulted trauma surgery for evaluation in case enhancements in the middle ear is related to trauma? Seen by trauma team CT temporal bones and CT cervical spine added to further evaluate for traumatic injuries. Need to rule out basilar skull fracture as a cause of the patient's raccoon eyes. Will follow up results OBJECTIVE Vitals height is 1.651 m (5' 5 ) and weight is 99 kg (218 lb 4.1 oz). His temporal temperature is 36.5 ???C (97.7 ???F). His blood pressure is 128/53 and his pulse is 72. His respiration is 23 and oxygen saturation is 98%. Temp: [36.2 ???C (97.2 ???F)-36.7 ???C (98.1 ???F)] 36.5 ???C (97.7 ???F) Heart Rate: [61-82] 72 Resp: [15-29] 23 BP: (100-141)/(41-56) 128/53 Physical Exam: General: AAOx1 HEENT: racoon eyes, Atraumatic, normocephalic, PERRLA Neck: Supple neck. Respiratory: Clear breathing sound bilaterally, no wheezing no crackles. Heart: Regular rhythm, no murmur, no rub. Neurology: Can move all extremities, no focal deficit. Abdomen: Soft, not distended, not tender, Coon sign is negative. Extremities: No cyanosis, no edema. Skin: Warm and dry. Weight: Admission weight: 99 kg (218 lb 4.1 oz) Wt Readings from Last 1 Encounters: 01/09/24 99 kg (218 lb 4.1 oz) Input/Output: No intake or output data in the 24 hours ending 01/12/24 1453 Lab Results CBC: Results from last 7 days Lab Units 01/12/24 0407 01/11/24 0349 01/10/24 0324 WBC AUTO 10*3/uL 8.81 7.44 9.36 HEMOGLOBIN g/dL 11.1* 11.2* 11.4* HEMATOCRIT % 34.5* 34.0* 35.2* PLATELETS AUTO 10*3/uL 146* 155 168 Coagulation: Results from last 7 days Lab Units 01/09/24 0308 APTT Seconds 25.9 INR 0.98 Metabolic Panel: Results from last 7 days Lab Units 01/12/24 0407 01/11/24 0350 01/10/24 0324 SODIUM mmol/L 138 136 129* POTASSIUM mmol/L 4.0 4.0 3.9 CHLORIDE mmol/L 103 104 97* CO2 mmol/L 28 26 21 BUN mg/dL 19 29* 56* CREATININE mg/dL 0.84 0.84 1.12 GLUCOSE mg/dL 85 118* 212* CALCIUM mg/dL 8.4* 8.3* 8.4* MAGNESIUM mg/dL 2.0 2.3 1.7* Cardiac: Results from last 7 days Lab Units 01/11/24 1052 01/09/24 0308 TROPONIN I ng/mL -- 0.06* BNP pg/mL 1,312* -- Radiology XR chest 1 view Narrative: CHEST 1 VIEW HISTORY: Pacemaker placement COMPARISON: None Impression: *Left subclavian approach dual lead pacemaker in place. *No pneumothorax, pleural effusions, or overt pulmonary edema. *Cardiomegaly. Electronically signed: Isak Ennis MD. Cultures Lab Results Component Value Date BLOOD CULTURE No growth at 3 days 01/09/2024 BLOOD CULTURE No growth at 3 days 01/09/2024 Medications As per chart ASSESSMENT AND PLAN Assessment High degree AV block without any identifiable cause Type 2 diabetes mellitus Dementia AKIL Peripheral vascular disease COPD Hypertension Hypercholesterolemia Obstructive sleep apnea Soft tissue density within the bilateral middle ear cavities as well as external auditory canals Plan Monitor pulse oc keep SpO2 >90%, supplemental O2 as needed, currently saturation well on RA Monitor BP CTH findings noted, consulted trauma surgery for evaluation in case enhancements in the middle ear is related to trauma? Seen by trauma team CT temporal bones and CT cervical spine added to further evaluate for traumatic injuries. Need to rule out basilar skull fracture as a cause of the patient's raccoon eyes (more content not included)... [facility] 01-12-2024 Note Physical Therapy Physical Therapy Evaluation Patient Name: Clyde Humphrey : 1945 Today's Date: 01/12/2024 Patient is a 78 y/o male presenting from [facility] and [facility] with heart block. Episodes of pre-syncope and bradycardia. Underwent pacemaker placement 01/10/24. Patient significantly hard of hearing, making portions of evaluation difficult. Able to read, clip board is present in the room to assist. Difficulty maintaining/understanding pacer precautions LUE. Discharge: SNF General Subjective: RN approved PT session and OOB activity. Patient in bed upon arrival, agreeable to session. Upon completion, patient left up in the chair with chair alarm ON, RN aware. Call light within reach. PT Diagnosis: Impaired activity tolerance/functional independence Patient Active Problem List Diagnosis Heart block Past Medical History: Diagnosis Date COPD (chronic obstructive pulmonary disease) ([facility]) Seizure ([facility]) Sleep apnea No past surgical history on file. Precautions Precautions Medical Precautions: pacemaker, telemetry, fall risk, chair alarm Post-Surgical Precautions: Pacemaker Precautions LUE Pain Pain Assessment Pain Assessment: No/denies pain Pain Score: 0 - No pain Cognition Cognition Overall Cognitive Status: Impaired (Baseline Dementia) Arousal/Alertness: Appropriate responses to stimuli Orientation Level: Oriented to person Following Commands: Follows one step commands with increased time, Follows one step commands with repetition (KLAMATH makes command following difficult) General Assessment General Assessment Hearing: Significantly KLAMATH - best communication by writing Home Living Home Living Type of Home: care home Home Adaptive Equipment: Walker rolling, Wheelchair-power Prior Level of Function Prior Function Level of Bacon: Needs assistance with ADLs, Needs assistance with homemaking Prior Functional Mobility: Independent with wheelchair (Believe patient completes transfers to and from his wheelchair with assistance at his baseline) Vision Basic Assessment Vision - Basic Assessment Current Vision: No visual deficits (Appears grossly WFL - able to read larger print) Activity Tolerance Activity Tolerance Endurance: Stage II General Assessments Activity Tolerance Endurance: Stage II Sensation Light Touch: No apparent deficits Coordination Movements are Fluid and Coordinated: Yes Postural Control Postural Control: Within Functional Limits Static Sitting Balance Static Sitting-Balance Support: Feet supported Static Sitting-Level of Assistance: Close supervision Dynamic Sitting Balance Dynamic Sitting-Balance Support: Feet supported, Right upper extremity supported, Left upper extremity supported Dynamic Sitting-Balance: Forward lean, Lateral lean Dynamic Sitting Balance-Level of Assistance: Minimum assistance Static Standing Balance Static Standing-Balance Support: Right upper extremity supported, Left upper extremity supported Static Standing-Level of Assistance: Minimum assistance Functional Assessments Bed Mobility Bed Mobility: Yes Bed Mobility 1 Bed Mobility From 1: Supine Bed Mobility Type 1: To Bed Mobility to 1: Short sit Level of Assistance 1: Minimum assistance Bed Mobility Comments 1: Min (A) x1 at trunk to complete supine to sit, able to manage BLE over to EOB, roll and reach railing Transfers Transfer: Yes Transfer 1 Transfer From 1: Bed Transfer Type 1: To Transfer to 1: Chair with arms Technique 1: Stand pivot Transfer Device 1: none Transfer Level of Assistance 1: Moderate assistance Trials/Comments 1: Patient reaching forward with BUE on arm rests of the chair for assistance, able to complete stand with fwd flexed posture and complete pivot with Mod (A) X1 for safety. Ambulation Ambulation: No (Believe patient is fairly non-ambulatory at baseline) Extremity Assessments RUE Assessment RUE Assessment: Within Functional Limits (Grossly 4/5) LUE Assessment LUE Assessment: Within Functional Limits (Grossly 4/5 throughout distal LUE - shoulder not assessed 2/2 pacemaker precautions) RLE Assessment RLE Assessment: Exceptions to WFL (BLE hip flexion 3-/5, BLE quadriceps 4/5, BLE ankle DF 4/5) LLE Assessment LLE Assessment: Exceptions to WFL (BLE hip flexion 3-/5, BLE quadriceps 4/5, BLE ankle DF 4/5) Outcome Assessments 6 Clicks (Mobility) Help from another person turning from your back to your side while in a flat bed without using bedrails: A lot Help from another person moving from lying on your back to sitting on the side of a flat bed without using bedrails: A lot Help from another person moving to and from a bed to a chair (including a wheelchair): A lot Help from another person standing up from a chair using your arms (e.g. wheelchair or bedside chair): A lot Help from another person to walk in hospital room: Total He (more content not included)... [facility] 01-12-2024 Note Occupational Therapy Occupational Therapy Evaluation Patient Name: Clyde Humphrey : 1945 Today's Date: 01/12/2024 Time In: 1015 Time Out: 1039 Clyde Humphrey is a 78-year-old gentleman with past medical history significant for dementia has been transferred from [facility] due to high degree AV block. PPM 01/10/24 General Subjective: friendly and cooperative but not a reliable historian, he is very KLAMATH but able to read Patient Active Problem List Diagnosis Heart block Past Medical History: Diagnosis Date COPD (chronic obstructive pulmonary disease) ([facility]) Seizure ([facility]) Sleep apnea No past surgical history on file. Precautions Precautions Medical Precautions: pacemaker, telemetry, fall risk, chair alarm Pain Pain Assessment Pain Assessment: No/denies pain Cognition Cognition Overall Cognitive Status: Impaired Arousal/Alertness: Appropriate responses to stimuli Orientation Level: Oriented to person Following Commands: Follows one step commands with increased time, Follows one step commands with repetition Safety Judgment: (not impulsive) Awareness of Errors: Decreased awareness of errors, Assistance required to identify errors made, Assistance required to correct errors made Attention Span: Attends with cues to redirect Memory: Decreased short term memory, Decreased remote coders memory Communication: Intact General Assessment General Assessment Hearing: (very kar[place]) Home Living Home Living Type of Home: care home Home Adaptive Equipment: Wheelchair-power Prior Level of Function Prior Function Level of Bacon: Needs assistance with ADLs, Needs assistance with functional transfers (patient is very vague on type and amount of assist needed) Prior Functional Mobility: Transfers only Receives Help From: NH/SNF staff Prior IADLs IADL History Homemaking Responsibilities: No Static Sitting Balance Static Sitting Balance Static Sitting-Level of Assistance: Independent Dynamic Sitting Balance Dynamic Sitting Balance Dynamic Sitting Balance-Level of Assistance: Minimum assistance Static Standing Balance Static Standing Balance Static Standing-Level of Assistance: Moderate assistance ADL ADL UE Dressing Assistance: Moderate (to maintain PPM precautions) LE Dressing Assistance: Maximal Transfers Transfers Transfer: (mod A: supine to sit EOB, sit to stand , take a few steps to chair and sit) Objective General Assessments Activity Tolerance Endurance: Stage II Vision - Basic Assessment Current Vision: No visual deficits Coordination Movements are Fluid and Coordinated: Yes Extremity Assessments RUE Assessment RUE Assessment: (RUE grossly 4/5) LUE Assessment LUE Assessment: (distal LUE 4/5) Outcome Assessments AM-PAC 6 Clicks Putting on and taking off regular lower body clothing?: A Lot (Mod/Max Assist) Bathing(Including washing,rinsing,drying)?: A Lot (Mod/Max Assist) Toileting, which includes using the toilet,bedpan,or urinal?: A Lot (Mod/Max Assist) Putting on and taking off regular upper body clothing?: A Lot (Mod/Max Assist) Taking care of personal grooming such as brushing teeth?: A Lot (Mod/Max Assist) Eating meals?: None (Independent) Total Score OT [facility]: 14 Assessment/Plan OT Assessment OT Impairments: Decreased ADL status, Decreased endurance, Decreased functional mobility OT Assessment/FAREED Summary: (needs skilled OT due to weakness and fatigue/PPM precautions for adls) Prognosis: Good Evaluation/Treatment Tolerance: Patient limited by fatigue Medical Staff Made Aware: Yes OT Education/Comments: (PPM handout issued and discussed with poor return demo, / bed mob and adl transfer with poor return demo) Plan Level of assist: 1 assist Treatment Interventions: ADL retraining, Functional transfer training, Endurance training, Patient/family training, Neuromuscular reeducation, Compensatory technique education OT Plan: Skilled OT OT Frequency: 5 times per week until discharge & PRN OT Discharge Recommendations: custodial facility placement OT - Discharge Recommendations Placed: Yes OT Goals Multi-Disciplinary Problems (from Occupational Therapy) Active Problems Problem: Balance Start Date: 01/12/24 Goal Start Date Expected End Date End Date LTG - Patient will maintain stand balance to allow for safe mobility 01/12/24 02/09/24 -- Problem: Bathing Start Date: 01/12/24 Goal Start Date Expected End Date End Date LTG - Patient will utilize adaptive techniques to bathe body with moderate assistance 01/12/24 02/09/24 -- Problem: Dressings Lower Extremities Start Date: 01/12/24 Goal Start Date Expected End Date End Date LTG - Patient will dress lower body with moderate assistance 01/12/24 02/09/24 -- Problem: Dressing Upper Extremities Start Date: 01/12/24 Goal Start Date Expected End Date End Date LTG - Pat (more content not included)... [facility] 01-12-2024 Note Phoned pt's to discuss DC plan to return to [facility]. [facility] is requesting precert to accept pt back under skilled. Await call back, Await PT/OT recommendations. [facility] 01-12-2024 Note Updates sent to [facility] danny [facility] 01-11-2024 Note ------ Attestation signed by Cody Richardson MD at 01/11/2024 9:49 PM I reviewed the salient portions of the patient history. I have seen and examined the patient during rounds with the resident/fellow. I repeated the guajardo components of the exam. Agree with the noted assessment and plan. Cody Richardson MD [facility] Pulmonary and Critical Care Medicine ------ Pulmonary Progress Note Patient - Clyde Humphrey Age - 78 y.o. - 1945 [facility] # - [id number] Date of Admission - 01/09/2024 1:24 AM HPI/Hospital Course Clyde Humphrey is a 78-year-old gentleman with past medical history significant for dementia has been transferred from [facility] due to high degree AV block. The patient is unable to answer questions appropriately due to his dementia so history was only taken by the signout received from [facility]. The patient was noted to have multiple episodes of presyncope over the last few days and today his heart rate was noted to be in 30s upon their initial evaluation. EKG showed a complete A-V dissociation after which thick reached out to [facility] cardiology for possible pacemaker placement. Due to significant bradycardia the patient is being transferred to [facility] ICU for close hemodynamic monitoring and management. SUBJECTIVE Patient seen and examined at bedside s/p PPM yesterday. No overnight events. CTH findings noted, consulted trauma surgery for evaluation in case enhancements in the middle ear is related to trauma? OBJECTIVE Vitals height is 1.651 m (5' 5 ) and weight is 99 kg (218 lb 4.1 oz). His temporal temperature is 36.2 ???C (97.2 ???F). His blood pressure is 100/47 (abnormal) and his pulse is 63. His respiration is 25 and oxygen saturation is 93%. Temp: [36.2 ???C (97.2 ???F)-36.4 ???C (97.5 ???F)] 36.2 ???C (97.2 ???F) Heart Rate: [60-75] 63 Resp: [13-29] 25 BP: (98-141)/(28-54) 100/47 Physical Exam: General: AAOx1 HEENT: Atraumatic, normocephalic, PERRLA Neck: Supple neck. Respiratory: Clear breathing sound bilaterally, no wheezing no crackles. Heart: Regular rhythm, no murmur, no rub. Neurology: Can move all extremities, no focal deficit. Abdomen: Soft, not distended, not tender, Coon sign is negative. Extremities: No cyanosis, no edema. Skin: Warm and dry. Weight: Admission weight: 99 kg (218 lb 4.1 oz) Wt Readings from Last 1 Encounters: 01/09/24 99 kg (218 lb 4.1 oz) Input/Output: Intake/Output Summary (Last 24 hours) at 01/11/2024 8127 Last data filed at 01/11/2024 1253 Gross per 24 hour Intake 250 ml Output 1250 ml Net -1000 ml Lab Results CBC: Results from last 7 days Lab Units 01/11/24 0349 01/10/24 0324 01/09/24 0308 WBC AUTO 10*3/uL 7.44 9.36 12.07* HEMOGLOBIN g/dL 11.2* 11.4* 13.1 HEMATOCRIT % 34.0* 35.2* 39.6 PLATELETS AUTO 10*3/uL 155 168 235 Coagulation: Results from last 7 days Lab Units 01/09/24 0308 APTT Seconds 25.9 INR 0.98 Metabolic Panel: Results from last 7 days Lab Units 01/11/24 0350 01/10/24 0324 01/09/24 0308 SODIUM mmol/L 136 129* 136 POTASSIUM mmol/L 4.0 3.9 4.3 CHLORIDE mmol/L 104 97* 101 CO2 mmol/L 26 21 27 BUN mg/dL 29* 56* 73* CREATININE mg/dL 0.84 1.12 1.33* GLUCOSE mg/dL 118* 212* 181* CALCIUM mg/dL 8.3* 8.4* 8.9 MAGNESIUM mg/dL 2.3 1.7* 1.9 Cardiac: Results from last 7 days Lab Units 01/11/24 1052 01/09/24 0308 TROPONIN I ng/mL -- 0.06* BNP pg/mL 1,312* -- Radiology XR chest 1 view Narrative: CHEST 1 VIEW HISTORY: Pacemaker placement COMPARISON: None Impression: *Left subclavian approach dual lead pacemaker in place. *No pneumothorax, pleural effusions, or overt pulmonary edema. *Cardiomegaly. Electronically signed: Isak Ennis MD. 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 Patient is on dopamine gtt and isoproterenol gtt as per cardiology, Consent obtained from daughter patient remains full code. CTH performed pt is noted to have Soft tissue density within the bilateral middle ear cavities as well as external auditory canals with nonvisualization of the ossicular chains (cholesteatoma ?). Consulted trauma surgery, findings may be related to recent trauma and fall? Also requested (more content not included)... [facility] 01-11-2024 Note Problem: Depression Goal: LTG-Alleviate depressed mood Outcome: Progressing Goal: LTG-Take medications as prescribed Outcome: Progressing Goal: LTG-Engage in self care as tolerated Outcome: Progressing Goal: LTG-Demonstrate elevation in mood Outcome: Progressing Goal: LTG-Demonstrate symptoms will not compromise daily living Outcome: Progressing Goal: LTG-Reach optimal level of functioning Outcome: Progressing Goal: STG-Engaging in developing routine and/or plan for after discharge Outcome: Progressing Problem: Homicial Ideation Goal: LTG-Patient will engage with staff to create a safety plan Outcome: Progressing Goal: LTG-Patient is willing to engage in treatment Outcome: Progressing Goal: LTG-Patient shows remission of ideation Outcome: Progressing Goal: STG-Pt will make no attempt at aggressive or violent behavior Outcome: Progressing Goal: STG-Family/Guardian to remove access to guns/weapons Outcome: Progressing The patient is Moderately Stable - Low risk of patient condition declining or worsening The patient's goals for the shift include ALYCIA The clinical goals for the shift include Stable hemodynamics [facility] 01-11-2024 Note ------ Attestation signed by Guilherme Patrick MD at 01/12/2024 2:20 PM By using the attestations below, I agree that I have read and verify that the documentation has been personally reviewed by me and ensure that the documentation accurately reflects the encounter. GC: I personally saw this patient on the day of the encounter, performed the guajardo portions of the service and participated in the management and treatment plan of the patient. I reviewed and confirm the documentation by the Resident Dr Kelly. Please note there may be an additional personal documentation from me. Guilherme Patrick MD ------ Cardiology Progress Note Subjective Subjective: S/p [employer] DC-PPM. No overnight events. Mentation appears improved/back to baseline. He is exteremly hard of hearing even with hearing aids. MRSA nares positive, in precautions. Objective Objective: Patient Vitals for the past 24 hrs: BP Temp Temp src Pulse Resp SpO2 01/11/24 0807 -- -- -- 60 17 100 % 01/11/24 0800 (!) 113/46 36.2 ???C (97.2 ???F) Temporal 63 26 96 % 01/11/24 0700 (!) 105/34 -- -- 61 -- 94 % 01/11/24 0600 (!) 104/34 -- -- 66 -- 93 % 01/11/24 0500 (!) 116/33 -- -- 62 -- 93 % 01/11/24 0400 (!) 102/39 36.3 ???C (97.3 ???F) Temporal 61 (!) 28 95 % 01/11/24 0300 107/52 -- -- 62 -- 92 % 01/11/24 0200 (!) 106/34 -- -- 75 -- 93 % 01/11/24 0100 (!) 98/28 -- -- 68 -- 92 % 01/11/24 0000 (!) 111/42 36.4 ???C (97.5 ???F) Temporal 72 18 93 % 01/10/24 2300 (!) 99/33 -- -- 60 -- 93 % 01/10/24 2200 (!) 111/35 -- -- 68 -- 95 % 01/10/24 2100 (!) 103/40 -- -- 71 -- 94 % 01/10/241999 (!) 108/46 36.2 ???C (97.2 ???F) Temporal 63 18 96 % 01/10/24 1900 (!) 121/29 -- -- 64 18 94 % 01/10/24 1847 (!) 123/45 -- -- 60 -- 98 % 01/10/24 1845 (!) 108/35 -- -- 67 -- 97 % 01/10/24 1830 (!) 107/47 -- -- 64 -- 96 % 01/10/24 1815 (!) 109/33 -- -- 65 -- 96 % 01/10/24 1800 (!) 126/33 -- -- 64 -- 95 % 01/10/24 1745 (!) 114/41 -- -- 64 19 96 % 01/10/24 1730 120/60 -- -- 66 24 93 % 01/10/24 1715 (!) 113/40 -- -- 63 21 98 % 01/10/24 1700 (!) 117/43 -- -- 63 18 95 % 01/10/24 1645 (!) 112/40 -- -- 60 18 97 % 01/10/24 1633 (!) 119/44 -- -- 61 20 96 % 01/10/24 1617 (!) 104/47 -- -- 63 20 95 % 01/10/24 1608 (!) 113/42 -- -- 71 22 97 % 01/10/24 1600 -- 36.2 ???C (97.2 ???F) Temporal -- -- -- 01/10/24 1559 (!) 127/47 -- -- 67 18 98 % 01/10/24 1536 -- -- -- 80 -- -- 01/10/24 1533 -- -- -- (!) 41 -- -- 01/10/24 1447 -- -- -- -- -- 99 % 01/10/24 1446 107/64 -- -- 51 18 99 % 01/10/24 1315 (!) 150/32 -- -- 52 26 96 % 01/10/24 1300 (!) 121/33 -- -- 51 16 98 % 01/10/24 1245 (!) 134/43 -- -- 51 12 97 % 01/10/24 1215 (!) 144/37 -- -- 51 20 94 % 01/10/24 1200 (!) 127/48 36.3 ???C (97.3 ???F) Temporal 51 20 93 % 01/10/24 1145 (!) 142/42 -- -- 51 16 96 % 01/10/24 1115 (!) 120/48 -- -- 50 13 98 % 01/10/24 1100 141/61 -- -- 50 23 96 % 01/10/24 1049 (!) 141/38 -- -- 51 13 95 % 01/10/24 1000 (!) 144/34 -- -- 50 22 97 % 01/10/24 0930 (!) 139/33 -- -- 52 15 97 % 01/10/24 0915 (!) 137/41 -- -- 50 14 95 % 01/10/24 0900 117/73 -- -- 51 12 96 % Physical Examination: GENERAL: AOx3, in no acute distress. HEAD: Atraumatic, normocephalic. EYES: XIOMARA, EOMI. NECK: No JVD present. CARDIAC: bradycardia. No murmur, rubs, or gallops. RESPIRATORY: CTAB, no increased effort of breathing. ABDOMEN: Soft, nontender, nondistended. EXTREMITIES: No lower extremity edema, peripheral pulses are 2+ bilaterally. Relevant Lab Results Encounter Date: 01/09/24 ECG 12 lead Result Value Ventricular Rate 44 Atrial Rate 120 QRS DURATION 106 QT Interval 514 QTC CALCULATION(BAZETT) 439 P Spring -25 R-Spring -30 T Wave Spring -28 Impression Sinus tachycardia with complete heart block and Junctional bradycardia with Premature ventricular complexes Incomplete right bundle branch block Left axis deviation Low voltage QRS Cannot rule out Inferior infarct (cited on or before 09-JAN-2024) Cannot rule out Septal infarct , age undetermined Abnormal ECG When compared with ECG of 09-JAN-2024 01:44, Premature ventricular complexes are now present Confirmed by Jermaine Valenzuela ([id number]) on 01/09/2024 7:52:18 AM Lab Results Component Value Date TROPONINI 0.06 (H) 01/09/2024 Transthoracic echo (TTE) complete Result Date: 01/10/2024 1 1 [facility] Heart Station [address] [facility] [place] [address] [phone] (fax) Echocardiogram-[facility] Name: CLYDE HUMPHREY Study Date: 01/10/2024 01:43 PM B/P: 107 mmHg/64 mmHg HR: 52 bpm Date of : 1945 Location: [facility] Height: 65 in. Age: 78 year(s) Patient Room: 3235 Weight: 218 lb. Gender: Male Patient Status: InPt BSA: 2.05 m2 Indication: Complete heart block, d (more content not included)... [facility] 01-10-2024 Note ------ Attestation signed by Cody Richardson MD at 01/11/2024 9:54 PM I reviewed the salient portions of the patient history. I have seen and examined the patient during rounds with the resident/fellow Dr. Ross on 01/09. I repeated the guajardo components of the exam. Agree with the noted assessment and plan. AV heart block On dopamine and isoproterenol infusions. Coordination of care with cardiology service regarding pacemaker placement. Monitor VS very closely. The patient is critically ill and requires high complexity decision making for assessment and support including: frequent evaluation and titration of therapies; extensive interpretation of multiple databases; application of advanced monitoring technologies and assessment and treatment of complex metabolic derangement. Time spent providing critical care services was 36 minutes. Cody Richardson MD [facility] Pulmonary and Critical Care Medicine ------ Pulmonary Progress Note Patient - Clyde Humphrey Age - 78 y[facility] 1945 [id number] Date of Admission - 01/09/2024 1:24 AM HPI/Hospital Course Clyde Humphrey is a 78-year-old gentleman with past medical history significant for dementia has been transferred from [facility] due to high degree AV block. The patient is unable to answer questions appropriately due to his dementia so history was only taken by the signout received from [facility]. The patient was noted to have multiple episodes of presyncope over the last few days and today his heart rate was noted to be in 30s upon their initial evaluation. EKG showed a complete A-V dissociation after which thick reached out to [facility] cardiology for possible pacemaker placement. Due to significant bradycardia the patient is being transferred to [facility] ICU for close hemodynamic monitoring and management. SUBJECTIVE Patient seen and examined at bedside on dopamine at 7 and isoproterenol at 4, pt planned for PPM today. Consent obtained from daughter patient remains full code. Per family although pt has dementia his mental status is currently not at baseline, will do infectious workup. CTH performed pt is noted to have Soft tissue density within the bilateral middle ear cavities as well as external auditory canals with nonvisualization of the ossicular chains (cholesteatoma ?) OBJECTIVE Vitals height is 1.651 m (5' 5 ) and weight is 99 kg (218 lb 4.1 oz). His temporal temperature is 36.3 ???C (97.3 ???F). His blood pressure is 127/47 (abnormal) and his pulse is 67. His respiration is 18 and oxygen saturation is 98%. Temp: [36 ???C (96.8 ???F)-36.6 ???C (97.9 ???F)] 36.3 ???C (97.3 ???F) Heart Rate: [41-80] 67 Resp: [11-28] 18 BP: (99-176)/(31-128) 127/47 Arterial Line BP 1: (63-124)/(37-97) 67/64 Physical Exam: General: AAOx1 HEENT: Atraumatic, normocephalic, PERRLA Neck: Supple neck. Respiratory: Clear breathing sound bilaterally, no wheezing no crackles. Heart: Regular rhythm, no murmur, no rub. Neurology: Can move all extremities, no focal deficit. Abdomen: Soft, not distended, not tender, Coon sign is negative. Extremities: No cyanosis, no edema. Skin: Warm and dry. Weight: Admission weight: 99 kg (218 lb 4.1 oz) Wt Readings from Last 1 Encounters: 01/09/24 99 kg (218 lb 4.1 oz) Input/Output: Intake/Output Summary (Last 24 hours) at 01/10/2024 1618 Last data filed at 01/10/2024 1559 Gross per 24 hour Intake 3783.67 ml Output 2120 ml Net 1663.67 ml Lab Results CBC: Results from last 7 days Lab Units 01/10/24 0324 01/09/24 0308 WBC AUTO 10*3/uL 9.36 12.07* HEMOGLOBIN g/dL 11.4* 13.1 HEMATOCRIT % 35.2* 39.6 PLATELETS AUTO 10*3/uL 168 235 Coagulation: Results from last 7 days Lab Units 01/09/24 0308 APTT Seconds 25.9 INR 0.98 Metabolic Panel: Results from last 7 days Lab Units 01/10/24 0324 01/09/24 0308 SODIUM mmol/L 129* 136 POTASSIUM mmol/L 3.9 4.3 CHLORIDE mmol/L 97* 101 CO2 mmol/L 21 27 BUN mg/dL 56* 73* CREATININE mg/dL 1.12 1.33* GLUCOSE mg/dL 212* 181* CALCIUM mg/dL 8.4* 8.9 MAGNESIUM mg/dL 1.7* 1.9 Cardiac: Results from last 7 days Lab Units 01/09/24 0308 TROPONIN I ng/mL 0.06* Radiology CT head wo IV contrast Narrative: EXAM:CT HEAD WO IV CONTRAST INDICATION: Ataxia, head trauma racoon eyes, s/p fall racoon eyes, s/p fall COMPARISON: None TECHNIQUE: Standard noncontrast axial CT sections through the head. All CT scans at this facility use dose modulation, iterative reconstruction, and/or weight based dosing when appropriate to reduce radiation dose to as low as reasonably achievable. FINDINGS: Brain Parenchyma: No acute hemorrhage, cerebral edema, or acute cortical infarction. No mass effect, or midline shift. Patchy hypoattenuation (more content not included)... [facility] 01-10-2024 Note Consulted with notif ication that patient is from a [facility]. Has dementia. No family at bedside. Appears patient may be from [facility] - message left for spouse, Soumya. Preliminary referral made to [facility] to confirm. [facility] 01-10-2024 Note Problem: Depression Goal: LTG-Alleviate depressed mood Outcome: Progressing Goal: LTG-Take medications as prescribed Outcome: Progressing Goal: LTG-Engage in self care as tolerated Outcome: Progressing Goal: LTG-Demonstrate elevation in mood Outcome: Progressing Goal: LTG-Demonstrate symptoms will not compromise daily living Outcome: Progressing Goal: LTG-Reach optimal level of functioning Outcome: Progressing Goal: STG-Engaging in developing routine and/or plan for after discharge Outcome: Progressing Problem: Homicial Ideation Goal: LTG-Patient will engage with staff to create a safety plan Outcome: Progressing Goal: LTG-Patient is willing to engage in treatment Outcome: Progressing Goal: LTG-Patient shows remission of ideation Outcome: Progressing Goal: STG-Pt will make no attempt at aggressive or violent behavior Outcome: Progressing Goal: STG-Family/Guardian to remove access to guns/weapons Outcome: Progressing The patient is Moderately Unstable - Medium risk of patient condition declining or worsening The patient's goals for the shift include ALYCIA The clinical goals for the shift include Stable hemodynamics [facility] 01-10-2024 Note ------ Attestation signed by Guilherme Patrick MD at 01/11/2024 10:11 AM By using the attestations below, I agree that I have read and verify that the documentation has been personally reviewed by me and ensure that the documentation accurately reflects the encounter. GC: I personally saw this patient on the day of the encounter, performed the guajardo portions of the service and participated in the management and treatment plan of the patient. I reviewed and confirm the documentation by the Cardiovascular Fellow Dr Trang Eagle. Please note there may be an additional personal documentation from me. Guilherme Patrick MD ------ Cardiology Progress Note Subjective Subjective: No acute events overnight. Patient was seen and examined today-remains confused. CT head showed no acute intracranial bleed. Scheduled for PPM implantation today. Objective Objective: Patient Vitals for the past 24 hrs: BP Temp Temp src Pulse Resp SpO2 01/10/24 0749 -- -- -- -- -- 96 % 01/10/24 0700 -- -- -- 52 20 96 % 01/10/24 0600 176/88 -- -- 51 13 97 % 01/10/24 0500 (!) 99/44 -- -- 52 (!) 28 97 % 01/10/24 0400 (!) 141/39 36.4 ???C (97.5 ???F) Temporal 52 23 96 % 01/10/24 0300 (!) 127/36 -- -- 54 22 97 % 01/10/24 0200 (!) 119/42 -- -- 53 23 98 % 01/10/24 0100 (!) 126/31 -- -- 52 23 95 % 01/10/24 0000 (!) 117/49 36.5 ???C (97.7 ???F) Temporal 52 19 97 % 01/09/24 2300 (!) 121/36 -- -- 53 14 99 % 01/09/24 2200 (!) 116/41 -- -- 53 20 97 % 01/09/24 2100 -- -- -- 55 14 98 % 01/09/241999 (!) 146/44 36.6 ???C (97.9 ???F) Axillary 55 14 99 % 01/09/24 1951 -- -- -- 54 11 99 % 01/09/24 1900 -- -- -- 54 15 99 % 01/09/24 1800 -- -- -- 54 21 99 % 01/09/24 1700 -- -- -- 55 18 98 % 01/09/24 1600 -- 36 ???C (96.8 ???F) -- 55 15 98 % 01/09/24 1500 -- -- -- 54 18 99 % 01/09/24 1400 -- -- -- 52 16 96 % 01/09/24 1300 -- -- -- 64 18 97 % 01/09/24 1200 -- 35.8 ???C (96.4 ???F) -- 51 16 (!) 84 % 01/09/24 1100 -- -- -- (!) 49 11 -- 01/09/24 1047 -- -- -- (!) 49 -- -- 01/09/24 1000 -- -- -- (!) 47 14 -- 01/09/24 0900 -- 35.6 ???C (96.1 ???F) -- (!) 46 26 92 % Physical Examination: GENERAL: AOx3, in no acute distress. HEAD: Atraumatic, normocephalic. EYES: XIOMARA, EOMI. NECK: No JVD present. CARDIAC: bradycardia. No murmur, rubs, or gallops. RESPIRATORY: CTAB, no increased effort of breathing. ABDOMEN: Soft, nontender, nondistended. EXTREMITIES: No lower extremity edema, peripheral pulses are 2+ bilaterally. Relevant Lab Results Encounter Date: 01/09/24 ECG 12 lead Result Value Ventricular Rate 44 Atrial Rate 120 QRS DURATION 106 QT Interval 514 QTC CALCULATION(BAZETT) 439 P Spring -25 R-Spring -30 T Wave Spring -28 Impression Sinus tachycardia with complete heart block and Junctional bradycardia with Premature ventricular complexes Incomplete right bundle branch block Left axis deviation Low voltage QRS Cannot rule out Inferior infarct (cited on or before 09-JAN-2024) Cannot rule out Septal infarct , age undetermined Abnormal ECG When compared with ECG of 09-JAN-2024 01:44, Premature ventricular complexes are now present Confirmed by Jermaine Valenzuela ([id number]) on 01/09/2024 7:52:18 AM Lab Results Component Value Date TROPONINI 0.06 (H) 01/09/2024 No echocardiogram results found for the past 12 months No nuclear medicine results found for the past 12 months Relevant Imaging Results ECG 12 lead Sinus tachycardia with complete heart block and Junctional bradycardia with Premature ventricular complexes Incomplete right bundle branch block Left axis deviation Low voltage QRS Cannot rule out Inferior infarct (cited on or before 09-JAN-2024) Cannot rule out Septal infarct , age undetermined Abnormal ECG When compared with ECG of 09-JAN-2024 01:44, Premature ventricular complexes are now present Confirmed by Jermaine Valenzuela ([id number]) on 01/09/2024 7:52:18 AM ECG 12 lead Sinus tachycardia with complete heart block with junctional escape Right bundle branch block Left anterior fascicular block Bifascicular block Cannot rule out Inferior infarct , age undetermined Abnormal ECG No previous ECGs available Confirmed by Jermaine Valenzuela ([id number]) on 01/09/2024 7:44:44 AM Assessment: Symptomatic Sinus bradycardia with complete AV dissociation (complete heart block) Inferior Q waves on EKG, mild troponin elevation 0.06 DM II HTN COPD Plan: Patient's HR is currently stable on Isuprel and Dopamine. Scheduled for PPM implantation today Will consider Coronary angiography during this hospitalization Address acute mental status change Followup on TTE Maintain telemetry Optimize electrolytes Trang Eagle MD [employer] - PGY5 [facility] 01-09-2024 Note ------ Attestation signed by Donnie Cavazos MD at 01/09/2024 1:28 PM I was present during the critical portion of the procedure and immediately available to assist ------ Arterial line placement PATIENT: Clyde Humphrey DATE: 01/09/2024 PROCEDURE AGRICULTURAL EXTENSION AGENT: Art Suh MD ATTENDING PHYSICIAN: Donnie Cavazos MD PROCEDURE: Right radial artery line placement INDICATION: Continuous and accurate blood pressure monitoring. TIME OUT: A time out was completed verifying correct patient, procedure, site of positioning and equipment. ANESTHESIA: Local : 1 ml of 1% lidocaine solution PROCEDURE SUMMARY: The patient was placed in supine position. The left forearm was prepped and draped in sterile manner using a chlorhexidine scrub. The radial artery was palpated, visualized using ultrasound and successfully cannulated on the first pass using ultrasound guidance. Pulsatile arterial blood was visualized and using the Seldinger technique, the catheter was placed without any difficulty. Following, the catheter was connected to the monitoring system and a good arterial wave form was observed on the monitor. Then the catheter was sutured into place and a sterile dressing was applied. The patient tolerated the procedure well. COMPLICATIONS: None ESTIMATED BLOOD LOSS: 2ml Art Suh MD PGY6 [facility] Pulmonary/Critical Care 01/09/2024 5:[address] [facility] 01-24-2023 Evaluation + Plan note Extrac gi from: Title:Discharge Note Author:New Johnson DO Date:01/24/23 Discharge To, Anticipated II - [facility] Unit Discharged to - Home independently Transported [...] When Contact Information Dharmesh POTTS, Bienvenido Chavira, [address] [id number]- Additional Instructions: Dementia, [id number] Extracted from: Title:APSO Note Author:New Johnson DO e:01/23/23 1. Generalized weakness (R53 .1: Weakness) IV fluids, trend BUN and creatinine PT/OT Currently awaiting pre-CERT for placement 2. Alzheimers disease (G30.9: Alzheimer's disease, unspecified) Continue Seroquel 3. CAD in [place] artery (I25.10: Atherosclerotic heart disease of [place] coronary artery without angina pectoris) Continue aspirin [...] Ordered: Initial Hospital Care/Day Moderate 55 Minutes [id number] Sbsq Hospital Care/Day Straight Fwd 25 Minutes [id number] 2. Alzheimers disease (G30.9: Alzheimer's disease, unspecified) Continue Seroquel 3. 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 CAD in [place] artery (I25.10: Atherosclerotic heart disease of [place] coronary artery without angina pectoris) 4. COPD [...] Ordered: Initial Hospital Care/Day Moderate 55 Minutes [id number] 2. Alzheimers disease (G30.9: Alzheimer's disease, unspecified) Continue Seroquel 3. CAD in [place] artery (I25.10: Atherosclerotic heart disease of [place] coronary artery without angina pectoris) Continue aspirin [...] improving gait and building on physical strength. [facility]09-03-2023 [facility] HospitalComment on above:Result Comment: Electronically Signed By: New Johnson DO\.br\Date and Time Signed: 01/24/23 09:57 [id number] Hospital Discharge instructions Patient Education 01/24/2023 09:54:03 Dementia, [id number] Dementia Dementia is a condition that affects [...] Follow these instructions at home: Medicines Take nmcn-syw-anhnlur and prescription medicines only as told by [...] find more information Alzheimer's Association: www.alz.org National [place] on Aging: www.susie.nih.gov/alzheimers World Health Organization: www.who.int [...] room or: Call your local emergency services (901 in the [place] Call the National Suicide Prevention Lifeline at or 019 in the [place] This is open 24 hours a day. Text the Crisis Text Line at 344693. Summary Dementia often affects memory and thinking. [...] provider. Document Revised: 12/03/2021 Document Reviewed: 09/23/2020 [employer] Patient Education 2022 [employer]. Follow Up Care 01/21/2023 15:06:04 With:Dharmesh POTTS, Bienvenido Chavira, [facility] Address: [address] [place] [id number] When: Unknown [facility]08-31-2023 [facility]Lutheran HospitalComment on above:Result Comment: Electronically Signed By: New Johnson DO.br\Date and Time Signed: 01/21/23 17:53 [id number] Evaluation + Plan note Extracted from: Title:Discharge Note Author:MICHAEL POTTS, Jamir Gerry e:12/20/22 stable Discharge To, Anticipated II - [facility] Unit Discharged to - custodial unit SNF Discharge Diet(s): Calorie Controlled- 1800 Calorie Diet (12/20/22 09:46:00) Prescriptions alprazolam 0.5 mg Tab, 0.5 mg= 1 tab(s), Oral, Daily, PRN aspirin 81 mg Oral EC Tab, 81 mg= 1 tab(s), Oral, Daily Augmentin 875 mg oral tablet, 1 tab(s), Oral, q12hr ergocalciferol 50,000 intl units Cap, 29977 International_Unit= 1 cap(s), Oral, q7day furosemide 40 [...] BID With When Contact Information Bienvenido Barroso [address] [place], [place] [id number] [employer] (1) Additional Instructions: Call for followup appointment [...] ultimately benefit being only 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 Coronary artery disease (I25.10: Atherosclerotic heart disease of [place] coronary artery without angina pectoris) Patient had [...] 9. Pulmonary hypertension (I27.20: Pulmonary hypertension, unspecified) [place] secondary to above 10. Hypertension (I10: Essential (primary) hypertension) Await reconciliation of meds from the extended care facility. He did have 1 blood pressure of 106 systolically in the emergency department. With the fall and suspicion of intravascular depletion will transiently hold antihypertensives if it is identified he is actually on antihypertensives at the extended care facility. On a prior hospitalization he [...] recent hospitalization has been titrated at the [facility]. He was recently placed on Xanax, discontinue that at this time. Awaiting verification of meds from the [facility] 15. Encounter for deep vein [...] Tests Pending * Legionella Antigen Urine 12/18/22 [facility]07-30-2023 NoteCRM entered the room to discuss dc planning. PCP, DME and insurance discussed. Patient is alert andinvolved in plan of care. Contact information given and whiteboard updated. Pt will dc to [facility] room 17 today. CRM to follow.[facility] HospitalComment on above:Result Comment: Electronically Signed By: Natalie Grant\Date and Time Signed: 12/20/22 11:52 [id number] IndiaLutheran HospitalComment on above: Result Comment: Electronically Signed By: Leslie MCKINNEY MD.candice\Date and Time Signed: 12/20/22 10:[id number] Hospital Discharge instructions Patient Education 12/20/2022 09:48:09 [...] hard liquor (44 mL). General instructions Take iywv-umj-tkcgojz and prescription medicines as told by your [...] are not available, use an alcohol-based hand preschool teacher. ?Make sure your health care providers wash [...] and water or with alcohol- based hand preschool teacher before and after caring for sick people. [...] bacteria common in health care settings. Take pbaw-tyi-gmpflcx and prescription medicines as told by your [...] provider. Document Revised: 05/31/2022 Document Reviewed: 05/31/2022 [employer] Patient Education 2022 [employer]. Follow Up Care 12/17/2022 23:50:19 With:Bienvenido Barroso Address: [address] [place] [id number]- Business (1) When: Unknown Comments:Call for followup appointment [facility]07-28-2023 [facility]:Result Comment: Electronically Signed By: Maycol CAGLE DO\.br\Date and Time Signed: 12/18/22 06:27 [id number] NoteLutheran HospitalComment on above:Result Comment: Electronically Signed By: Lizeth Cedeno MD\.br\Date and Time Signed: 12/02/22 12:28 [id number] Evaluation + Plan noteExtracted from: Title:Discharge Note Author:Lizeth Cedeno MD ate:12/02/22 Stable Discharge To, Anticipated II - [facility] Unit Discharged to - Home with family care Transported by, Anticipated - Family Discharge Diet(s): Other: Limit fluids to 1800 ml/day (12/02/22 12:23:00) Prescriptions aspirin 81 mg Oral EC Tab, 81 mg= 1 tab(s), Oral, Daily ergocalciferol 50,000 intl units Cap, 95288 International_Unit= 1 cap(s), Oral, q7day furosemide 40 [...] [facility] [address] [place] [address]- Business (1) Additional Instructions: HFpEF Dave Dickeydict [address] [place] [address]- Business (1) Additional Instructions: Cog impariment, [facility] Bienvenido Barroso In [address] [place] [address]- Business (1) Additional Instructions: Extracted from: Title:UPDATE [...] IM now. Extracted from: Title:Progress Note * Author:Tino POTTS, Nair Date:11/30/22 Impression and Plan 1 stage I [...] of CAD and previous coronary interventions in [place] with no indication of recurrent CAD, would [...] as able, pulm avery. -check echo Ordered: [facility] Care/Day High 50 Minutes 98473 2. Acute on chronic diastolic heart failure (I50.33: Acute on chronic diastolic (congestive) heart failure) c/w spironolactone and lasix IV 40mg qd -strict I/Os and daily weight - last echo was done 2014 with EF of 50%. will recheck this visit Ordered: [facility] Care/Day High 50 Minutes 37467 3. COPD without exacerbation (J44.9: Chronic obstructive pulmonary disease, unspecified) Ordered: [facility] Care/Day High 50 Minutes 97610 4. Weakness (R53.1: Weakness) -pt/ot Ordered: [facility] Care/Day High 50 Minutes 26644 5. Sinus bradycardia (R00.1: Bradycardia, unspecified) baseline. last EKG similar. -pt had decreased HR overnight so BB was held. -continue to monitor on tele Ordered: [facility] Care/Day High 50 Minutes 56106 6. Coronary artery disease (I25.10: Atherosclerotic heart disease of [place] coronary artery without angina pectoris) -c/w ASA Ordered: [facility] Care/Day High 50 Minutes 94924 7. Obstructive sleep apnea (G47.33: Obstructive sleep apnea (adult) (pediatric)) -CPAP qHS Ordered: [facility] Care/Day High 50 Minutes 01162 8. Pulmonary hypertension (I27.20: Pulmonary hypertension, unspecified) c/w spironolactone 50mg -lasix 40 mg iv qd -strict I/Os daily weights -check echo Ordered: [facility] Care/Day High 50 Minutes 65688 9. Abdominal pain (R10.9: Unspecified abdominal pain) resolved no complaints this morning Ordered: [facility] Care/Day High 50 Minutes 75371 10. Hypertension (I10: Essential (primary) hypertension) c/w spironolactone Ordered: [facility] Care/Day High 50 Minutes 43681 11. Diabetes (E11.9: Type 2 diabetes mellitus without complications) BGT qACHS -c/w glimepiride Ordered: [facility] Care/Day High 50 Minutes 46908 12. Hyperlipidemia (E78.5: Hyperlipidemia, unspecified) -hold statin due to elevated CK Ordered: [facility] Care/Day High 50 Minutes 94346 13. Chronic anemia (D64.9: Anemia, unspecified) monitor Ordered: [facility] Care/Day High 50 Minutes 58578 14. BPH (benign prostatic hyperplasia) (N40.0: Benign prostatic hyperplasia without lower urinary tract symptoms) c/w tamsulosin Ordered: [facility] Care/Day High 50 Minutes 83924 15. Dementia (F03.90: Unspecified dementia, unspecified severity, without behavioral disturbance, psychotic disturbance, mood disturbance, and anxiety) -c/w seroquel 25mg qHS Ordered: [facility] Care/Day High 50 Minutes 47785 16. Encounter for deep vein thrombosis (DVT) prophylaxis (Z29.9: Encounter for prophylactic measures, unspecified) Ordered: [facility] Care/Day High 50 Minutes 18883 17. Elevated CK (R74.8: Abnormal levels of other serum enzymes) -CK 1000 this morning. will monitor and hold statin - will not give fluids due to current diuresis Ordered: [facility] Care/Day High 50 Minutes 96505 COPD with acute exacerbation (J44.1: Chronic obstructive [...] artery disease (I25.10: Atherosclerotic heart disease of [place] coronary artery without angina pectoris) Continue aspirin, [...] Scheduled Provider:Donta NOONAN MD Location:Extended Care Appointment Type:[facility]07-10-2023 NoteOT [facility] score 15/24 = SNF. Patient requires assist w/ all transfers and self care at this time. Inpatient OT services to follow daily to progress w/ functional skills.[facility] NotePT Evaluation completed with an AMPAC score of 16/24. Pt requires Min A for bed mobility and min/Mod A to stand. Pt was able to take two sidesteps. Will follow daily, but SN[facility]Comment on above:Result Comment: Electronically Signed By: Maycol CAGLE DO\.br\Date and Time Signed: 11/29/22 01:33 [id number] Hospital Discharge instructions Follow Up Care 11/28/2022 17:10:04 With:Joanie Jiménez Address: [facility] [address] [place] [address]- Business (1) When: Unknown Comments:HFpEF With:Dave Cruz Address: [address] [place] [phone]- Business (1) When: Unknown Comments:Cog impariment, [facility] With:Bienvenido Barroos Address: [address] [place] [address] Business (1) When: Unknown [facility]05-20-2023 NoteLutheran HospitalComment on above:Result Comment: Electronically Signed By: Adeline COLEMAN\.br\Date and Time Signed: 10/10/22 17:53 EDT\.br\Electronically Co- Signed By: Ganesh Minaya MD\.br\Date and Time Co-Signed: 10/10/22 18:51 EDT 09-27-2022 [facility] HospitalComment on above:Result Comment: Electronically Signed By: Adeline COLEMAN\.br\Date and Time Signed: 09/26/22 21:20 EDT\.br\Electronically Co-Signed By: Ganesh Minaya MD\.br\Date and Time Co-Signed: 09/27/22 08:00 [id number] History of Present illness Narrative* Marcelino Echavarria MD - 09/07/2022 1:12 AM EDT Images from the original note were not included. EMERGENCY TRIAGE, TREAT AND TRANSPORT (ET3) DOCUMENTATION OF TELEHEALTH VISIT Date / Time: 09/06/20222146 Name: Clyde Humphrey : 1945 SSN: [id number] EMS Agency: [facility] [x] Verbal consent obtained [...] note No data available for this section [facility] Diagnosis Fall, initial encounter- Primary [facility] No data available for this section [facility] No data available for this section [facility] Summary Purpose Family History No Family [...] section and content) DATE CREATED AUTHOR 06/26/2021 [facility] dical Specialist DATE CREATED AUTHOR AUTHOR'S ORGANIZ ATION 12/05/2022 [facility] DATE CREATED AUTHOR AUTHOR'S ORGANIZ ATION 03/26/2023 [facility] DATE CREATED AUTHOR AUTHOR'S ORGANIZ ATION 05/04/2023 [facility] DATE CREATED AUTHOR AUTHOR'S ORGANIZ ATION 01/10/2024 [facility] DATE CREATED AUTHOR AUTHOR'S ORGANIZ ATION 01/18/2024 [facility] DATE CREATED AUTHOR AUTHOR'S ORGANIZ ATION 02/02/2024 [facility] Reason for Visit (unrecogniz ed section and content) Reason Comments Fall Patient Care team informatio n (unrecognized section and content) Personnel Name: Bienvenido Barroso MD Address: Address: [address] [place] [address] Name: Andrew Rodriguez Personnel Name: Bienvenido Barroso MD Address: Address: [address] [place] [address] Name: Andrew Rodriguez Personnel Name: Bienvenido Barroso MD Address: Address: [address] [place] [address] Name: Andrew Rodriguez Personnel Name: Bienvenido Barroso MD Address: Address: [address] [place] [address] Name: Andrew Rodriguez Patti Personnel Name: Bienvenido Barroso MD Address: Address: [address] [place] [address] Name: Andrew Rodriguez Personnel Name: Bienvenido Barroso MD Address: Address: [address] [place] [address] Name: Andrew Rodriguez Personnel Name: Bienvenido Barroso MD Address: Address: [address] [place] [address] Name: Andrew Rodriguez Personnel Name: Bienvenido Barroso MD Address: Address: [address] [place] [address] Name: Luis Gil LPN Name: Andrew Rodriguez [...] BE BASED ON THE PRIMARY CLINICAL RECORDS. [facility]. provides no warranty or guarantee of the accuracy or completeness of information in this document.
[2024-02-25 09:00] LABS: Basophils Percent Auto 0.4 % (0.2-2.0); Eosinophils Absolute Auto 1.2 10^3/uL (0.0-0.7); Eosinophils Percent Auto 15.4 % (0.9-7.0); Hemoglobin 12.6 g/dL (14.0-18.0); Immature Granulocytes Abs Auto 0.22 10^3/uL (0.00-0.03); Immature Granulocytes Pct Auto 2.9 % (0.0-0.5); Lymphocytes Absolute Auto 1.3 10^3/uL (1.2-3.8); Lymphocytes Percent Auto 16.9 % (20.5-60.0); Mean Corpuscular HGB Conc 31.5 g/dL (29.9-35.2); Mean Corpuscular Hemoglobin 28.7 pg (25.9-34.0); Mean Corpuscular Volume 91.1 fL (80.0-94.0); Mean Platelet Volume 10.4 fL (9.5-13.5); Monocytes Absolute Auto 1.2 10^3/uL (0.3-0.8); Monocytes Percent Auto 15.3 % (1.7-12.0); Neutrophils Absolute Auto 3.7 10^3/uL (1.4-6.5); Neutrophils Percent Auto 49.1 % (43.0-75.0); Platelet Count 151 10^3/uL (150-450); Red Blood Count 4.39 10^6/uL (4.70-6.10); Red Cell Distribution Width 16.1 % (11.0-15.0); White Blood Count 7.5 10^3/uL (4.0-11.0)
[2024-02-25 09:41] LABS: Alanine Aminotransferase 40 U/L (16-63); Albumin Globulin Ratio 0.6; Albumin Level 2.4 g/dL (3.4-5.0); Alkaline Phosphatase 29 U/L (46-116); Anion Gap 9.3; Aspartate Amino Transferase 30 U/L (15-37); BUN Creatinine Ratio 27.4; Bilirubin Total 0.3 mg/dL (0.2-1.0); Calcium 9.4 mg/dL (8.5-10.1); Carbon Dioxide 34.6 mmol/L (21.0-32.0); Chloride 98 mmol/L (98-107); Estimated GFR (African America >60 (>=60 mL/min/1.73m^2); Estimated GFR (Non-African Ame >60 (>=60 mL/min/1.73m^2); Globulin 3.9 g/dL; Glucose 129 mg/dL (74-106); Potassium 3.9 mmol/L (3.5-5.1); Sodium 138 mmol/L (136-145); Total Protein 6.3 g/dL (6.4-8.2)
== END 2024-05-23 23:59 | disposition home or self-care (01) ==
LOC: LAB 06:32
PROVIDERS: PCP Family Medicine; Visit Provider Family Medicine
DX: Z51.81 Encounter for therapeutic drug level monitoring (principal)
CPT/HCPCS: 36415; 80053; 83880; 85025

== ENCOUNTER 2024-03-03 19:32 | Outpatient (REF) | payer OTHER, MEDICAID, SELFPAY ==
--- OUTSIDE RECORDS SUMMARY | 2024-03-03 19:38 | XMS_ITS | CCD ---
Author Organization [facility] CliniSyil Care Team Providers Care Crimper Operator Name Role Phone Unavailable Primary Care Provider UnavailBienvenido Guillory Primary Care Physician [phone] Andrew Rodriguez Unavailable Unavailable Luis Gil Unavailable [...] Refills(s) 0 Start Date: 06/16/14 Status: Ordered [id number] 200 actuat albuterol 0.09 mg/actuat metered dose inhaler (4 sources) beta2-Adrenergic Agonist Start: 04-27-2021 take 2 puff(s) by inhalation four times daily for wheezing Pro-Air HFA CFC free 90 mcg/inh MDI 2 puff(s), Inhalation, QID for wheezing, 8.5 gram, Refill(s) 0, [facility], 167.6, cm, 04/24/21 18:14:00 EST, Height/Length [...] Daily, # 30 tab(s), Refills(s) 0, Pharmacy: [facility], 167, cm, 11/28/22 17:20:00 EDT, Height/Length [...] Daily, # 90 tab(s), Refills(s) 4, Pharmacy: [facility], 160, cm, 12/18/22 0:04:00 EDT, Height/Length [...] Daily, # 90 tab(s), Refills(s) 4, Pharmacy: [facility], 160, cm, 12/18/22 0:04:00 EDT, Height/Length [...] Daily, # 90 tab(s), Refills(s) 1, Pharmacy: [facility], 160, cm, 12/18/22 0:04:00 EDT, Height/Length Dosing, 94, kg, 12/18/22 0:04:00 EDT, Weight Dosing Start Date: 01/15/23 Status: Ordered Start: 12-02-2022 take 1 tablet by ruperto once daily furosemide 40 mg Tab 40 mg = 1 tab(s), Oral, Daily, # 30 tab(s), Refills(s) 0, Pharmacy: [facility], 167, cm, 11/28/22 17:20:00 EDT, Height/Length [...] day, # 30 tab(s), Refills(s) 0, Pharmacy: [facility], 167, cm, 09/26/22 10:09:00 EDT, Height/Length [...] qHS, # 210 tab(s), Refills(s) 1, Pharmacy: [facility], 160, cm, 12/18/22 0:04:00 EDT, Height/Length [...] Bedtime, # 30 tab(s), Refills(s) 0, Pharmacy: [facility], 167, cm, 11/28/22 17:20:00 EDT, Height/Length [...] Daily, # 90 tab(s), Refills(s) 1, Pharmacy: [facility], 160, cm, 12/18/22 0:04:00 EDT, Height/Length [...] week(s), # 8 cap(s), Refills(s) 0, Pharmacy: [facility], 167, cm, 11/28/22 17:20:00 EDT, Height/Length [...] Completed Start: 06-16-2014 take 1 capsule by [facility] twice daily tamsulosin 0.4 [...] Coronary atherosclerosis; 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 Normal [facility] BASIC METABOLIC PANELon 08-2 Anion gap [Moles/Vol] 13 mmol/L Normal 7-20 [facility] Comment on above: Performed By: #### L [id number] #### [facility] [address] [place] [address] Calcium [Mass/Vol] 8.8 mg/dL Normal 8.6-10.3 [facility] Comment on above: Performed By: #### L [id number] #### [facility] ([facility]) [address] [place] [address] Chloride [Moles/Vol] 104 mmol/L Normal 98-107 [facility] Comment on above: Performed By: #### L [id number] #### [facility] ([facility]) [address] [place] [address] CO2 [Moles/Vol] 29 mmol/L Normal 21-31 [facility] Comment on above: Performed By: #### L [id number] #### [facility] ([facility]) [address] [place] [address] Creatinine [Mass/Vol] 1.02 mg/dL Normal 0.70-1.30 [facility] Comment on above: Performed By: #### L [id number] #### [facility] ([facility]) [address] [place] [address] GLOMERULAR FILTRATION RATE ML/MIN/1.73 SQ M.PREDICTED 74.8 mL/min/1.73m*2 Normal >60.0 [facility] Comment on above: Result Comment: [facility]???s estimated glomerular filtration rate (eGFR) will no [...] individuals. Performed By: #### L [id number] #### [facility] ([facility]) [address] [place] [address] Glucose [Mass/Vol] 99 mg/dL Normal 70-100 [facility] Comment on above: Performed By: #### L [id number] #### [facility] ([facility]) [address] [place] [address] Potassium [Moles/Vol] 4.2 mmol/L Normal 3.5-5.1 [facility] Comment on above: Performed By: #### L [id number] #### [facility] ([facility]) [address] [place] [address] Sodium [Moles/Vol] 142 mmol/L Normal 136-145 [facility] Comment on above: Performed By: #### L [id number] #### [facility] ([facility]) [address] [place] [address] Urea nitrogen [Mass/Vol] 27 mg/dL High 7-25 [facility] Comment on above: Performed By: #### L [id number] #### [facility] ([facility]) [address] [place] [address] UREA NITROGEN/CREATININE (MASS RATIO) IN SER/PLAS 26.[address] [facility] Comment on above: Performed By: #### L [id number] #### [facility] ([facility]) [address] [place] [address] CBC WITH AUTO DIFFERENTIALon 01-16-2024 Basophils (Bld) [#/Vol] 0.03 10*3/uL Normal 0.00-0.20 [facility] Comment on above: Performed By: #### L [id number] #### [facility] ([facility]) [address] [place] [address] Basophils/100 WBC (Bld) 0.4 % Normal 0.0-1.0 [facility] Comment on above: Performed By: #### L [id number] #### [facility] ([facility]) [address] [place] [address] Eosinophils (Bld) [#/Vol] 0.45 10*3/uL Normal 0.00-0.50 [facility] Comment on above: Performed By: #### L [id number] #### [facility] ([facility]) [address] [place] [address] Eosinophils/100 WBC (Bld) 5.7 % Normal 0.0-6.0 [facility] Comment on above: Performed By: #### L [id number] #### [facility] ([facility]) [address] [place] [address] Erythrocyte distribution width (RBC) [Ratio] 14.6 % Normal 11.5-15.0 [facility] Comment on above: Performed By: #### L [id number] #### [facility] ([facility]) [address] [place] [address] ERYTHROCYTE MEAN CORPUSCULAR HEMOGLOBIN CONCENTRATION (G/DL) BY AUTOMATED 31.6 g/dL Low 32.0-35.0 [facility] Comment on above: Performed By: #### L [id number] #### [facility] ([facility]) [address] [place] [address] Hematocrit (Bld) [Volume fraction] 37.7 % Low 39.0-55.0 [facility] Comment on above: Performed By: #### L [id number] #### [facility] ([facility]) [address] [place] [address] Hemoglobin (Bld) [Mass/Vol] 11.9 g/dL Low 13.0-17.0 [facility] Comment on above: Performed By: #### L [id number] #### [facility] ([facility]) [address] [place] [address] Immature granulocytes (Bld) [#/Vol] 0.18 10*3/uL Normal 0.00-0.20 [facility] Comment on above: Performed By: #### L [id number] #### [facility] [address] [place] [address] Immature granulocytes/100 WBC (Bld) 2.3 % High 0.0-1.0 [facility] Comment on above: Performed By: #### L [id number] #### [facility] ([facility]) [address] [place] [address] Lymphocytes (Bld) [#/Vol] 1.51 10*3/uL Normal 1.20-4.00 [facility] Comment on above: Performed By: #### L [id number] #### [facility] ([facility]) [address] [place] [address] Lymphocytes/100 WBC (Bld) 19.3 % Low 20.0-45.0 [facility] Comment on above: Performed By: #### L [id number] #### [facility] ([facility]) [address] [place] [address] MCH (RBC) [Entitic mass] 28.4 pg Normal 27.0-33.0 [facility] Comment on above: Performed By: #### L [id number] #### [facility] ([facility]) [address] [place] [address] MCV (RBC) [Entitic vol] 90.0 fL Normal 82.0-98.0 [facility] Comment on above: Performed By: #### L [id number] #### [facility] ([facility]) [address] [place] [address] Monocytes (Bld) [#/Vol] 0.90 10*3/uL Normal 0.10-1.00 [facility] Comment on above: Performed By: #### L [id number] #### [facility] ([facility]) [address] [place] [address] Monocytes/100 WBC (Bld) 11.5 % Normal 5.0-12.0 [facility] Comment on above: Performed By: #### L [id number] #### [facility] ([facility]) [address] [place] [address] Neutrophils (Bld) [#/Vol] 4.77 10*3/uL Normal 1.60-7.60 [facility] Comment on above: Performed By: #### L [id number] #### [facility] ([facility]) [address] [place] [address] Neutrophils/100 WBC (Bld) 60.8 % Normal 40.0-72.0 [facility] Comment on above: Performed By: #### L [id number] #### [facility] ([facility]) [address] [place] [address] NRBC (PER 100 WBCS) BY AUTOMATED COUNT 0.0 % Normal 0 [facility] Comment on above: Performed By: #### L [id number] #### [facility] ([facility]) [address] [place] [address] PLATELETS (10*3/UL) IN BLOOD AUTOMATED COUNT 159 10*3/uL Normal 150-400 [facility] Comment on above: Performed By: #### L [id number] #### [facility] ([facility]) [address] [place] [address] RBC (Bld) [#/Vol] 4.19 10*6/uL Low 4.20-5.70 [facility] Comment on above: Performed By: #### L [id number] #### [facility] ([facility]) [address] [place] [address] WBC (Bld) [#/Vol] 7.84 10*3/uL Normal 4.00-10.60 [facility] Comment on above: Performed By: #### L [id number] #### [facility] ([facility]) [address] [place] [address] NURSNOTEon 01-16-2024 NURSNOTE Pt discharged via [facility] with all belongings and questions answered to pt's satisfaction. Normal [facility] NURSNOTE RN [facility] Normal [facility] BASIC METABOLIC PANELon 08-2 Anion gap [Moles/Vol] 13 mmol/L Normal 7-20 [facility] Comment on above: Performed By: #### L [id number] #### [facility] [address] [place] [address] Calcium [Mass/Vol] 8.6 mg/dL Normal 8.6-10.3 [facility] Comment on above: Performed By: #### L [id number] #### [facility] ([facility]) [address] [place] [address] Chloride [Moles/Vol] 106 mmol/L Normal 98-107 [facility] Comment on above: Performed By: #### L [id number] #### [facility] ([facility]) [address] [place] [address] CO2 [Moles/Vol] 29 mmol/L Normal 21-31 [facility] Comment on above: Performed By: #### L [id number] #### [facility] ([facility]) [address] [place] [address] Creatinine [Mass/Vol] 0.98 mg/dL Normal 0.70-1.30 [facility] Comment on above: Performed By: #### L [id number] #### [facility] ([facility]) [address] [place] [address] GLOMERULAR FILTRATION RATE ML/MIN/1.73 SQ M.PREDICTED 78.4 mL/min/1.73m*2 Normal >60.0 [facility] Comment on above: Result Comment: [facility]???s estimated glomerular filtration rate (eGFR) will no [...] group of individuals. Performed By: #### L [id number] #### [facility] ([facility]) [address] [place] [address] Glucose [Mass/Vol] 101 mg/dL High 70-100 [facility] Comment on above: Performed By: #### L [id number] #### [facility] ([facility]) [address] [place] [address] Potassium [Moles/Vol] 4.2 mmol/L Normal 3.5-5.1 [facility] Comment on above: Performed By: #### L [id number] #### [facility] ([facility]) [address] [place] [address] Sodium [Moles/Vol] 144 mmol/L Normal 136-145 [facility] Comment on above: Performed By: #### L [id number] #### [facility] ([facility]) [address] [place] [address] Urea nitrogen [Mass/Vol] 25 mg/dL Normal 7-25 [facility] Comment on above: Performed By: #### L [id number] #### [facility] ([facility]) [address] [place] [address] UREA NITROGEN/CREATININE (MASS RATIO) IN SER/PLAS 25.[address] [facility] Comment on above: Performed By: #### L [id number] #### [facility] ([facility]) [address] [place] [address] CBC WITH AUTO DIFFERENTIALon 01-15-2024 Basophils (Bld) [#/Vol] 0.05 10*3/uL Normal 0.00-0.20 [facility] Comment on above: Performed By: #### L [id number] #### [facility] ([facility]) [address] [place] [address] Basophils/100 WBC (Bld) 0.6 % Normal 0.0-1.0 [facility] Comment on above: Performed By: #### L [id number] #### [facility] ([facility]) [address] [place] [address] Eosinophils (Bld) [#/Vol] 0.53 10*3/uL High 0.00-0.50 [facility] Comment on above: Performed By: #### L [id number] #### [facility] ([facility]) [address] [place] [address] Eosinophils/100 WBC (Bld) 6.7 % High 0.0-6.0 [facility] Comment on above: Performed By: #### L [id number] #### [facility] ([facility]) [address] [place] [address] Erythrocyte distribution width (RBC) [Ratio] 14.9 % Normal 11.5-15.0 [facility] Comment on above: Performed By: #### L [id number] #### [facility] ([facility]) [address] [place] [address] ERYTHROCYTE MEAN CORPUSCULAR HEMOGLOBIN CONCENTRATION (G/DL) BY AUTOMATED 31.3 g/dL Low 32.0-35.0 [facility] Comment on above: Performed By: #### L [id number] #### [facility] ([facility]) [address] [place] [address] Hematocrit (Bld) [Volume fraction] 37.4 % Low 39.0-55.0 [facility] Comment on above: Performed By: #### L [id number] #### [facility] ([facility]) [address] [place] [address] Hemoglobin (Bld) [Mass/Vol] 11.7 g/dL Low 13.0-17.0 [facility] Comment on above: Performed By: #### L [id number] #### [facility] ([facility]) [address] [place] [address] Immature granulocytes (Bld) [#/Vol] 0.14 10*3/uL Normal 0.00-0.20 [facility] Comment on above: Performed By: #### L [id number] #### [facility] [address] [place] [address] Immature granulocytes/100 WBC (Bld) 1.8 % High 0.0-1.0 [facility] Comment on above: Performed By: #### L [id number] #### [facility] ([facility]) [address] [address] Lymphocytes (Bld) [#/Vol] 1.27 10*3/uL Normal 1.20-4.00 [facility] Comment on above: Performed By: #### L [id number] #### [facility] ([facility]) [address] [place] [address] Lymphocytes/100 WBC (Bld) 16.2 % Low 20.0-45.0 [facility] Comment on above: Performed By: #### L [id number] #### [facility] ([facility]) [address] [place] [address] MCH (RBC) [Entitic mass] 28.5 pg Normal 27.0-33.0 [facility] Comment on above: Performed By: #### L [id number] #### [facility] ([facility]) [address] [address] MCV (RBC) [Entitic vol] 91.0 fL Normal 82.0-98.0 [facility] Comment on above: Performed By: #### L [id number] #### [facility] ([facility]) [address] [place] [address] Monocytes (Bld) [#/Vol] 0.81 10*3/uL Normal 0.10-1.00 [facility] Comment on above: Performed By: #### L [id number] #### [facility] ([facility]) [address] [place] [address] Monocytes/100 WBC (Bld) 10.3 % Normal 5.0-12.0 [facility] Comment on above: Performed By: #### L [id number] #### [facility] ([facility]) [address] [place] [address] Neutrophils (Bld) [#/Vol] 5.06 10*3/uL Normal 1.60-7.60 [facility] Comment on above: Performed By: #### L [id number] #### [facility] ([facility]) [address] [place] [address] Neutrophils/100 WBC (Bld) 64.4 % Normal 40.0-72.0 [facility] Comment on above: Performed By: #### L [id number] #### [facility] ([facility]) [address] [place] [address] NRBC (PER 100 WBCS) BY AUTOMATED COUNT 0.0 % Normal 0 [facility] Comment on above: Performed By: #### L [id number] #### [facility] ([facility]) [address] [place] [address] PLATELETS (10*3/UL) IN BLOOD AUTOMATED COUNT 156 10*3/uL Normal 150-400 [facility] Comment on above: Performed By: #### L [id number] #### [facility] ([facility]) [address] [place] [address] RBC (Bld) [#/Vol] 4.11 10*6/uL Low 4.20-5.70 [facility] Comment on above: Performed By: #### L [id number] #### [facility] ([facility]) [address] [place] [address] WBC (Bld) [#/Vol] 7.86 10*3/uL Normal 4.00-10.60 [facility] Comment on above: Performed By: #### L [id number] #### [facility] ([facility]) [address] [place] [address] NURSNOTEon 01-15-2024 NURSNOTE Nurse noted pt oxyge n saturation dipping below 92% due to patient sleeping soundly with mouth open. Nurse attempted to apply supplemental oxygen after explaining to patient via communication board. Pt began yelling at nurse and swatting the oxygen tubing away from his face. Will continue to monitor. [facility] 30on 01-14-2024 30 The patient is [...] these barriers include continuing to encourage sling. [facility] 30 Daily Case Managemen t Update Multidisciplinary rounds have been completed. Barriers to Discharge: Pending medical clearance for discharge. [facility] when medically ready. Diet: [...] OT Six Click Score: 14 PT Recommendations: senior care facility placement OT Recommendations: senior care facility placement New Consults: Therapy Orders (From admission, onward) Start Ordered 01/11/24 1348 PT eval and treat Until therapy completed Question: Reason for PT? Answer: eval and treat 01/11/24 1347 01/11/24 1348 OT eval and treat Until therapy completed Question: Reason for OT? Answer: eval and treat 01/11/[address] [facility] 30 The patient is Moderately Stable [...] and report changes in neurological status Normal [facility] BASIC METABOLIC PANELon 08-2 Anion gap [Moles/Vol] 12 mmol/L Normal 7-20 [facility] Comment on above: Performed By: #### L [id number] #### [facility] ([facility]) [address] [place] [address] Calcium [Mass/Vol] 8.5 mg/dL Low 8.6-10.3 [facility] Comment on above: Performed By: #### L [id number] #### [facility] ([facility]) [address] [place] [address] Chloride [Moles/Vol] 104 mmol/L Normal 98-107 [facility] Comment on above: Performed By: #### L [id number] #### [facility] ([facility]) [address] [place] [address] CO2 [Moles/Vol] 30 mmol/L Normal 21-31 [facility] Comment on above: Performed By: #### L [id number] #### [facility] ([facility]) [address] [place] [address] Creatinine [Mass/Vol] 0.93 mg/dL Normal 0.70-1.30 [facility] Comment on above: Performed By: #### L [id number] #### [facility] ([facility]) [address] [place] [address] GLOMERULAR FILTRATION RATE ML/MIN/1.73 SQ M.PREDICTED 83.5 mL/min/1.73m*2 Normal >60.0 [facility] Comment on above: Result Comment: [facility]???s estimated glomerular filtration rate (eGFR) will no [...] individuals. Performed By: #### L [id number] #### [facility] ([facility]) [address] [place] [address] Glucose [Mass/Vol] 96 mg/dL Normal 70-100 [facility] Comment on above: Performed By: #### L [id number] #### [facility] ([facility]) [address] [place] [address] Potassium [Moles/Vol] 4.5 mmol/L Normal 3.5-5.1 [facility] Comment on above: Performed By: #### L [id number] #### [facility] ([facility]) [address] [place] [address] Sodium [Moles/Vol] 141 mmol/L Normal 136-145 [facility] Comment on above: Performed By: #### L [id number] #### [facility] [facility] ([facility]) [address] [place] [address] Urea nitrogen [Mass/Vol] 20 mg/dL Normal 7-25 [facility] Comment on above: Performed By: #### L [id number] #### [facility] ([facility]) [address] [place] [address] UREA NITROGEN/CREATININE (MASS RATIO) IN SER/PLAS 21.[address] [facility] Comment on above: Performed By: #### L [id number] #### [facility] ([facility]) [address] [place] [address] CBC WITH AUTO DIFFERENTIALon 01-14-2024 Basophils (Bld) [#/Vol] 0.03 10*3/uL Normal 0.00-0.20 [facility] Comment on above: Performed By: #### L [id number] #### [facility] ([facility]) [address] [place] [address] Basophils/100 WBC (Bld) 0.4 % Normal 0.0-1.0 [facility] Comment on above: Performed By: #### L [id number] #### [facility] ([facility]) [address] [place] [address] Eosinophils (Bld) [#/Vol] 0.54 10*3/uL High 0.00-0.50 [facility] Comment on above: Performed By: #### L [id number] #### [facility] [address] [place] [address] Eosinophils/100 WBC (Bld) 6.4 % High 0.0-6.0 [facility] Comment on above: Performed By: #### L [id number] #### [facility] ([facility]) [address] [place] [address] Erythrocyte distribution width (RBC) [Ratio] 14.6 % Normal 11.5-15.0 [facility] Comment on above: Performed By: #### L [id number] #### [facility] ([facility]) [address] [place] [address] ERYTHROCYTE MEAN CORPUSCULAR HEMOGLOBIN CONCENTRATION (G/DL) BY AUTOMATED 31.9 g/dL Low 32.0-35.0 [facility] Comment on above: Performed By: #### L [id number] #### [facility] [address] [place] [address] Hematocrit (Bld) [Volume fraction] 38.6 % Low 39.0-55.0 [facility] Comment on above: Performed By: #### L [id number] #### [facility] [address] [place] [address] Hemoglobin (Bld) [Mass/Vol] 12.3 g/dL Low 13.0-17.0 [facility] Comment on above: Performed By: #### L [id number] #### [facility] ([facility]) [address] [place] [address] Immature granulocytes (Bld) [#/Vol] 0.16 10*3/uL Normal 0.00-0.20 [facility] Comment on above: Performed By: #### L [id number] #### [facility] ([facility]) [address] [place] [address] Immature granulocytes/100 WBC (Bld) 1.9 % High 0.0-1.0 [facility] Comment on above: Performed By: #### L [id number] #### [facility] ([facility]) [address] [place] [address] Lymphocytes (Bld) [#/Vol] 1.07 10*3/uL Low 1.20-4.00 [facility] Comment on above: Performed By: #### L [id number] #### [facility] ([facility]) [address] [place] [address] Lymphocytes/100 WBC (Bld) 12.7 % Low 20.0-45.0 [facility] Comment on above: Performed By: #### L [id number] #### [facility] ([facility]) [address] [place] [place] [address] MCH (RBC) [Entitic mass] 28.5 pg Normal 27.0-33.0 [facility] Comment on above: Performed By: #### L [id number] #### [facility] ([facility]) [address] [place] [place] [address] MCV (RBC) [Entitic vol] 89.4 fL Normal 82.0-98.0 [facility] Comment on above: Performed By: #### L [id number] #### [facility] ([facility]) [address] [place] [address] Monocytes (Bld) [#/Vol] 0.59 10*3/uL Normal 0.10-1.00 [facility] Comment on above: Performed By: #### L [id number] #### [facility] ([facility]) [address] [place] [place] [address] Monocytes/100 WBC (Bld) 7.0 % Normal 5.0-12.0 [facility] Comment on above: Performed By: #### L [id number] #### [facility] ([facility]) [address] [place] [address] Neutrophils (Bld) [#/Vol] 6.01 10*3/uL Normal 1.60-7.60 [facility] Comment on above: Performed By: #### L [id number] #### [facility] ([facility]) [address] [place] [address] Neutrophils/100 WBC (Bld) 71.6 % Normal 40.0-72.0 [facility] Comment on above: Performed By: #### L [id number] #### [facility] ([facility]) [address] [place] [address] NRBC (PER 100 WBCS) BY AUTOMATED COUNT 0.0 % Normal 0 [facility] Comment on above: Performed By: #### L [id number] #### [facility] ([facility]) [address] [place] [place] [address] PLATELETS (10*3/UL) IN BLOOD AUTOMATED COUNT 159 10*3/uL Normal 150-400 [facility] Comment on above: Performed By: #### L [id number] #### [facility] ([facility]) [address] [place] [address] RBC (Bld) [#/Vol] 4.32 10*6/uL Normal 4.20-5.70 [facility] Comment on above: Performed By: #### L [id number] #### [facility] ([facility]) [address] [place] [address] WBC (Bld) [#/Vol] 8.40 10*3/uL Normal 4.00-10.60 [facility] Comment on above: Performed By: #### L [id number] #### [facility] ([facility]) [address] [place] [address] HEMOGLOBIN AND HEMATOCRIT, B Shayla 01-14-2024 Hematocrit (Bld) [Volume fraction] 42.2 % Normal 39.0-55.0 [facility] Comment on above: Performed By: #### L [id number] ####[facility] ([facility])[address] [place] [address] Hemoglobin (Bld) [Mass/Vol] 13.1 g/dL Normal 13.0-17.0 [facility] Comment on above: Performed By: #### L [id number] ####[facility] ([facility])[address] [place] [address] POCT GLUCOSE METER UNSOLICIT ED RESULTSon 01-14-2024 Glucose [Mass/Vol] 111 mg/dL High 70-105 [facility] Comment on above: Order Comment: Waive d Testing in the ED is performed under the ED CLIA certificate #[id number]. Result Comment: [email or web address] Performed By: #### L [id number] #### [facility] ([facility]) [address] [place] [address] Glucose [Mass/Vol] 151 mg/dL High 70-105 [facility] Comment on above: Order Comment: Waive d Testing in the ED is performed under the ED CLIA certificate #[id number]. Result Comment: [email or web address] [email or web address] Performed By: #### L [id number] #### [facility] ([facility]) [address] [place] [address] Glucose [Mass/Vol] 205 mg/dL High 70-105 [facility] Comment on above: Order Comment: Waive d Testing in the ED is performed under the ED CLIA certificate #[id number]. Result Comment: [email or web address] [email or web address] Performed By: #### L [id number] #### [facility] ([facility]) [address] [place] [address] 30on 01-13-2024 30 Problem: Pain Goal: STG-Pt [...] Patient wheezy duoneb and lasix received. Normal [facility] 30 Daily Case Managemen t Update Multidisciplinary rounds have been completed. Barriers to Discharge: Pending clinical course and improvement in clinical condition. [facility]; started today. Diet: Dietary [...] OT Six Click Score: 14 PT Recommendations: senior care facility placement OT Recommendations: senior care facility placement New Consults: Therapy Orders (From admission, onward) Start Ordered 01/11/24 1348 PT eval and treat Until therapy completed Question: Reason for PT? Answer: eval and treat 01/11/24 1347 01/11/24 1348 OT eval and treat Until therapy completed Question: Reason for OT? Answer: eval and treat 01/11/24 1347 Normal [facility] 30 The patient is Moderately Stable [...] difficulty Respiratory therapy support as indicated Normal [facility] BASIC METABOLIC PANELon 12-23 Anion gap [Moles/Vol] 9 mmol/L Normal [facility] Comment on above: Performed By: #### L [id number] #### [facility] ([facility]) [address] [facility] [place] [address] Calcium [Mass/Vol] 8.3 mg/dL Low 8.6-10.3 [facility] Comment on above: Performed By: #### L [id number] #### [facility] ([facility]) [address] [place] [address] Chloride [Moles/Vol] 105 mmol/L Normal 98-107 [facility] Comment on above: Performed By: #### L [id number] #### [facility] ([facility]) [address] [place] [address] CO2 [Moles/Vol] 29 mmol/L Normal 21-31 [facility] Comment on above: Performed By: #### L [id number] #### [facility] ([facility]) [address] [place] [address] Creatinine [Mass/Vol] 0.74 mg/dL Normal 0.70-1.30 [facility] Comment on above: Performed By: #### L [id number] #### [facility] ([facility]) [address] [place] [address] GLOMERULAR FILTRATION RATE ML/MIN/1.73 SQ M.PREDICTED 92.2 mL/min/1.73m*2 Normal >60.0 [facility] Comment on above: Result Comment: [facility]???s estimated glomerular filtration rate (eGFR) will no [...] individuals. Performed By: #### L [id number] #### [facility] ([facility]) [address] [place] [address] Glucose [Mass/Vol] 106 mg/dL High 70-100 [facility] Comment on above: Performed By: #### L [id number] #### [facility] [address] [place] [place] [address] Potassium [Moles/Vol] 4.3 mmol/L Normal 3.5-5.1 [facility] Comment on above: Performed By: #### L [id number] #### [facility] ([facility]) [address] [place] [place] [address] Sodium [Moles/Vol] 139 mmol/L Normal 136-145 [facility] Comment on above: Performed By: #### L [id number] #### [facility] ([facility]) [address] [place] [address] Urea nitrogen [Mass/Vol] 16 mg/dL Normal 7-25 [facility] Comment on above: Performed By: #### L [id number] #### [facility] ([facility]) [address] [place] [address] UREA NITROGEN/CREATININE (MASS RATIO) IN SER/PLAS 21.[address] [facility] Comment on above: Performed By: #### L [id number] #### [facility] ([facility]) [address] [place] [address] CBC WITH AUTO DIFFERENTIALon 01-13-2024 Basophils (Bld) [#/Vol] 0.04 10*3/uL Normal 0.00-0.20 [facility] Comment on above: Performed By: #### L [id number] #### [facility] ([facility]) [address] [place] [address] Basophils/100 WBC (Bld) 0.5 % Normal 0.0-1.0 [facility] Comment on above: Performed By: #### L [id number] #### [facility] ([facility]) [address] [place] [address] Eosinophils (Bld) [#/Vol] 0.45 10*3/uL Normal 0.00-0.50 [facility] Comment on above: Performed By: #### L [id number] #### [facility] [address] [facility] [address] Eosinophils/100 WBC (Bld) 5.9 % Normal 0.0-6.0 [facility] Comment on above: Performed By: #### L [id number] #### [facility] ([facility]) [address] [place] [address] Erythrocyte distribution width (RBC) [Ratio] 14.6 % Normal 11.5-15.0 [facility] Comment on above: Performed By: #### L [id number] #### [facility] ([facility]) [address] [place] [address] ERYTHROCYTE MEAN CORPUSCULAR HEMOGLOBIN CONCENTRATION (G/DL) BY AUTOMATED 31.9 g/dL Low 32.0-35.0 [facility] Comment on above: Performed By: #### L [id number] #### [facility] [address] [place] [address] Hematocrit (Bld) [Volume fraction] 35.7 % Low 39.0-55.0 [facility] Comment on above: Performed By: #### L [id number] #### [facility] ([facility]) [address] [place] [place] [address] Hemoglobin (Bld) [Mass/Vol] 11.4 g/dL Low 13.0-17.0 [facility] Comment on above: Performed By: #### L [id number] #### [facility] ([facility]) [address] [place] [place] [address] Immature granulocytes (Bld) [#/Vol] 0.15 10*3/uL Normal 0.00-0.20 [facility] Comment on above: Performed By: #### L [id number] #### [facility] ([facility]) [address] [place] [address] Immature granulocytes/100 WBC (Bld) 2.0 % High 0.0-1.0 [facility] Comment on above: Performed By: #### L [id number] #### [facility] ([facility]) [address] [place] [place] [address] Lymphocytes (Bld) [#/Vol] 1.22 10*3/uL Normal 1.20-4.00 [facility] Comment on above: Performed By: #### L [id number] #### [facility] ([facility]) [address] [place] [address] Lymphocytes/100 WBC (Bld) 16.1 % Low 20.0-45.0 [facility] Comment on above: Performed By: #### L [id number] #### [facility] [address] [place] [address] MCH (RBC) [Entitic mass] 28.6 pg Normal 27.0-33.0 [facility] Comment on above: Performed By: #### L [id number] #### [facility] [address] [place] [address] MCV (RBC) [Entitic vol] 89.5 fL Normal 82.0-98.0 [facility] Comment on above: Performed By: #### L [id number] #### [facility] ([facility]) [address] [place] [address] Monocytes (Bld) [#/Vol] 0.83 10*3/uL Normal 0.10-1.00 [facility] Comment on above: Performed By: #### L [id number] #### [facility] [address] [place] [address] Monocytes/100 WBC (Bld) 10.9 % Normal 5.0-12.0 [facility] Comment on above: Performed By: #### L [id number] #### [facility] ([facility]) [address] [place] [address] Neutrophils (Bld) [#/Vol] 4.89 10*3/uL Normal 1.60-7.60 [facility] Comment on above: Performed By: #### L [id number] #### [facility] ([facility]) [address] [place] [address] Neutrophils/100 WBC (Bld) 64.6 % Normal 40.0-72.0 [facility] Comment on above: Performed By: #### L [id number] #### [facility] ([facility]) [address] [place] [address] NRBC (PER 100 WBCS) BY AUTOMATED COUNT 0.0 % Normal 0 [facility] Comment on above: Performed By: #### L [id number] #### [facility] ([facility]) [address] [place] [place] [address] PLATELETS (10*3/UL) IN BLOOD AUTOMATED COUNT 152 10*3/uL Normal 150-400 [facility] Comment on above: Performed By: #### L [id number] #### [facility] ([facility]) [address] [place] [address] RBC (Bld) [#/Vol] 3.99 10*6/uL Low 4.20-5.70 [facility] Comment on above: Performed By: #### L [id number] #### [facility] ([facility]) [address] [place] [address] WBC (Bld) [#/Vol] 7.58 10*3/uL Normal 4.00-10.60 [facility] Comment on above: Performed By: #### L [id number] #### [facility] ([facility]) [address] [place] [address] FERRITINon 01-13-2024 FERRITIN (NG/ML) IN SER/PLAS 53.0 ng/mL Normal 24.0-336.0 [facility] Comment on above: Performed By: #### L [id number] #### [facility] ([facility]) [address] [place] [address] FOLATEon 01-13-2024 FOLATE (NG/ML) IN SER/PLAS 12.14 ng/mL Normal 6.6-1000 [facility] Comment on above: Performed By: #### L [id number] ####[facility] ([facility])[address] [place] [address] IRON AND TIBCon 01-13-2024 IRON (UG/DL) IN SER/PLAS 37 ug/dL Low 50-212 [facility] Comment on above: Performed By: #### L [id number] #### [facility] [address] [place] [address] IRON BINDING CAPACITY (UG/DL) IN SER/PLAS 244 ug/dL Low 250-450 [facility] Comment on above: Performed By: #### L [id number] #### [facility] ([facility]) [address] [facility] [place] [address] IRON BINDING CAPACITY.UNSATURATED (UG/DL) IN SER/PLAS 207.0 ug/dL Normal 155.0-355.0 [facility] Comment on above: Performed By: #### L [id number] #### [facility] ([facility]) [address] [place] [address] IRON SATURATION (%) IN SER/PLAS 15 % Low 20-50 [facility] Comment on above: Performed By: #### L [id number] #### [facility] ([facility]) [address] [place] [address] PHOSPHORUSon 01-13-2024 Magnesium [Mass/Vol] 2.7 mg/dL Normal 2.5-5.0 [facility] Comment on above: Performed By: #### L [id number] #### [facility] ([facility]) [address] [place] [address] POCT GLUCOSE METER UNSOLICIT ED RESULTSon 01-13-2024 Glucose [Mass/Vol] 107 mg/dL High 70-105 [facility] Comment on above: Order Comment: Waive d Testing in the ED is performed under the ED CLIA certificate #[id number]. Result Comment: [email or web address] Performed By: #### L [id number] #### [facility] [address] [place] [address] Glucose [Mass/Vol] 115 mg/dL High 70-105 [facility] Comment on above: Order Comment: Waive d Testing in the ED is performed under the ED CLIA certificate #[id number]. Result Comment: [email or web address] Performed By: #### L [id number] #### [facility] ([facility]) [address] [facility] [address] Glucose [Mass/Vol] 164 mg/dL High 70-105 [facility] Comment on above: Order Comment: Waive d Testing in the ED is performed under the ED CLIA certificate #[id number]. Result Comment: [email or web address] Performed By: #### L [id number] #### [facility] ([facility]) [address] [facility] [address] Glucose [Mass/Vol] 116 mg/dL High 70-105 [facility] Comment on above: Order Comment: Waive d Testing in the ED is performed under the ED CLIA certificate #[id number]. Result Comment: [email or web address] Performed By: #### L [id number] #### [facility] ([facility]) [address] [place] [address] VITAMIN B12on 01-13-2024 Cobalamin (Vitamin B12) [Mass/Vol] 179 pg/mL Low 180-914 [facility] Comment on above: Result Comment: REFE RENCE RANGES: 180-914 pg/mL Normal 145-179 pg/mL Indeterminate <145 pg/mL Deficient Performed By: #### L [id number] #### [facility] ([facility]) [address] [place] [address] 30on 01-12-2024 30 Daily Case Managemen t Update Multidisciplinary rounds have been completed. Barriers to Discharge: 01/11- still waiting on pt ot, awaiting SW to confirm return to [place], needs to talk to daughter, aware. Ct head negative for any acute issues. [facility] wants to skill, will need precert. cb Diet: Dietary Orders (From admission, onward) Start Ordered 01/12/24 0838 Regular Diet Diet effective now Question: Room Service? Answer: No 01/12/24 0837 01/12/24 0837 Special Kitchen Request Once Comments: General tray please 01/12/24 0837 Physician Expected Discharge Date: 01/12/2024 Discharge Delays: PT Six Click Score: 12 OT Six Click Score: 14 PT Recommendations: OT Recommendations: senior care facility placement New Consults: Consult Orders (From [...] Answer: eval and treat 01/11/24 1347 Normal [facility] CBCon 01-12-2024 Erythrocyte distribution width (RBC) [Ratio] 14.6 % Normal 11.5-15.0 [facility] Comment on above: Performed By: #### L [id number] #### [facility] ([facility]) [address] [place] [address] ERYTHROCYTE MEAN CORPUSCULAR HEMOGLOBIN CONCENTRATION (G/DL) BY AUTOMATED 32.2 g/dL Normal 32.0-35.0 [facility] Comment on above: Performed By: #### L [id number] #### [facility] ([facility]) [address] [place] [address] Hematocrit (Bld) [Volume fraction] 34.5 % Low 39.0-55.0 [facility] Comment on above: Performed By: #### L [id number] #### [facility] ([facility]) [address] [place] [address] Hemoglobin (Bld) [Mass/Vol] 11.1 g/dL Low 13.0-17.0 [facility] Comment on above: Performed By: #### L [id number] #### [facility] ([facility]) [address] [place] [address] MCH (RBC) [Entitic mass] 28.8 pg Normal 27.0-33.0 [facility] Comment on above: Performed By: #### L [id number] #### [facility] ([facility]) [address] [place] [address] MCV (RBC) [Entitic vol] 89.4 fL Normal 82.0-98.0 [facility] Comment on above: Performed By: #### L [id number] #### [facility] ([facility]) [address] [place] [address] PLATELETS (10*3/UL) IN BLOOD AUTOMATED COUNT 146 10*3/uL Low 150-400 [facility] Comment on above: Performed By: #### L [id number] #### [facility] ([facility]) [address] [place] [address] RBC (Bld) [#/Vol] 3.86 10*6/uL Low 4.20-5.70 [facility] Comment on above: Performed By: #### L [id number] #### [facility] ([facility]) [address] [place] [address] WBC (Bld) [#/Vol] 8.81 10*3/uL Normal 4.00-10.60 [facility] Comment on above: Performed By: #### L [id number] #### [facility] ([facility]) [address] [place] [address] COMPREHENSIVE METABOLIC PANE Michael 01-12-2024 Albumin [Mass/Vol] 3.1 g/dL Low 3.5-5.7 [facility] Comment on above: Performed By: #### L [id number] ####[facility] ([facility] [place] [address] ALP [Catalytic activity/Vol] 33 U/L Low 34-104 [facility] Comment on above: Performed By: #### L [id number] ####[facility] (BEAKER)[address] [place] [address] ALT [Catalytic activity/Vol] 17 U/L Normal 7-52 [facility] Comment on above: Performed By: #### L [id number] ####[facility] (BEAKER)[address] [place] [address] Anion gap [Moles/Vol] 11 mmol/L Normal 7-20 [facility] Comment on above: Performed By: #### L [id number] ####[facility] (BEAKER)[address] [place] [address] AST [Catalytic activity/Vol] 16 U/L Normal 13-39 [facility] Comment on above: Performed By: #### L [id number] ####[facility] (BEAKER)[address] [place] [address] Bilirubin [Mass/Vol] 0.4 mg/dL Normal 0.3-1.0 [facility] Comment on above: Performed By: #### L [id number] ####[facility] ([facility] [place] [address] Calcium [Mass/Vol] 8.4 mg/dL Low 8.6-10.3 [facility] Comment on above: Performed By: #### L [id number] ####[facility] (BEAKER)[address] [place] [address] Chloride [Moles/Vol] 103 mmol/L Normal 98-107 [facility] Comment on above: Performed By: #### L [id number] ####[facility] (BEAKER)[address] [place] [address] CO2 [Moles/Vol] 28 mmol/L Normal 21-31 [facility] Comment on above: Performed By: #### L [id number] ####[facility] (BEAKER)[address] [place] [address] Creatinine [Mass/Vol] 0.84 mg/dL Normal 0.70-1.30 [facility] Comment on above: Performed By: #### L [id number] ####[facility] ([facility])[address] [place] [address] GLOMERULAR FILTRATION RATE ML/MIN/1.73 SQ M.PREDICTED 88.7 mL/min/1.73m*2 Normal >60.0 [facility] Comment on above: Result Comment: [facility]???s estimated glomerular filtration rate (eGFR) will no [...] of individuals. Performed By: #### L [id number] ####[facility] ([facility])[address] [place] [address] Glucose [Mass/Vol] 85 mg/dL Normal 70-100 [facility] Comment on above: Performed By: #### L [id number] ####[facility] ([facility])[address] [place] [address] Potassium [Moles/Vol] 4.0 mmol/L Normal 3.5-5.1 [facility] Comment on above: Performed By: #### L [id number] ####[facility] ([facility])[address] [place] [address] Protein [Mass/Vol] 5.4 g/dL Low 6.0-8.3 [facility] Comment on above: Performed By: #### L [id number] ####[facility] ([facility])[address] [place] [address] Sodium [Moles/Vol] 138 mmol/L Normal 136-145 [facility] Comment on above: Performed By: #### L [id number] ####[facility] ([facility])[address] [place] [address] Urea nitrogen [Mass/Vol] 19 mg/dL Normal 7-25 [facility] Comment on above: Performed By: #### L [id number] ####[facility] (BEAKER)[address] [place] [address] UREA NITROGEN/CREATININE (MASS RATIO) IN SER/PLAS 22.[address] [facility] Comment on above: Performed By: #### L [id number] ####[facility] (BEAKER)[address] [place] [address] CONSULTon 01-12-2024 CONSULT Reason For Consult: s/p [...] Injury 78 y.o. male who presented to [facility] on 01/09/24 as a transfer from [facility] for symptomatic bradycardia with complete heart block. Patient with a history of dementia, difficulty answering questions thoroughly because of dementia and hearing loss. Majority of history obtained via chart review. Patient with multiple episodes of presyncope reported prior to admission. No clearly documented falls. On arrival to [facility] he was noted to have a heart rate in the 30s. He was transferred to [facility] for Cardiology evaluation and underwent PPM placement [...] history of COPD (chronic obstructive pulmonary disease) ([facility]), Seizure ([facility]), and Sleep apnea. Past Surgical History: has [...] EOMI. Neurologic: (more content not included)... Normal [facility] CT CERVICAL SPINE WO IV CONT Annmarie [...] Kan Nicole. Not Anabella Invalid Interpretation Code [facility] Comment on above: Order Comment: Traum a [...] Kan Nicole. Not Anabella Invalid Interpretation Code [facility] MAGNESIUMon 01-12-2024 Magnesium [Mass/Vol] 2.0 mg/dL Normal 1.9-2.7 [facility] Comment on above: Performed By: #### L [id number] ####[facility] ([facility])[address] [place] [address] PHOSPHORUSon 01-12-2024 Magnesium [Mass/Vol] 2.1 mg/dL Low 2.5-5.0 [facility] Comment on above: Performed By: #### L [id number] #### [facility] ([facility]) [address] [place] [address] POCT GLUCOSE METER UNSOLICIT ED RESULTSon 01-12-2024 Glucose [Mass/Vol] 153 mg/dL High 70-105 [facility] Comment on above: Order Comment: Waive d Testing in the ED is performed under the ED CLIA certificate #[id number]. Result Comment: [email or web address] Performed By: #### L [id number] #### [facility] ([facility]) [address] [place] [address] Glucose [Mass/Vol] 134 mg/dL High 70-105 [facility] Comment on above: Order Comment: Waive d Testing in the ED is performed under the ED CLIA certificate #[id number]. Result Comment: [email or web address] Performed By: #### L [id number] #### [facility] ([facility] [address] [place] [address] Glucose [Mass/Vol] 210 mg/dL High 70-105 [facility] Comment on above: Order Comment: Waive d Testing in the ED is performed under the ED CLIA certificate #[id number]. Result Comment: [email or web address] Performed By: #### L [id number] #### [facility] (BEAKER) [address] [place] [address] Glucose [Mass/Vol] 103 mg/dL Normal 70-105 [facility] Comment on above: Order Comment: Waive d Testing in the ED is performed under the ED CLIA certificate #[id number]. Result Comment: [email or web address] Performed By: #### L [id number] #### [facility] ([facility]) [address] [place] [address] 30on 01-11-2024 30 Daily Case Managemen t Update Multidisciplinary rounds have been completed. Barriers to Discharge: 01/10- s/p BRIKA DC-PPM. No overnight events. Mentation appears improved/back to baseline. PT OT ordered, from [facility]? Not sure if returning. On [...] Answer: eval and treat 01/11/24 1347 Normal [facility] AMMONIAon 01-11-2024 AMMONIA (UMOL/L) IN PLASMA 41 umol/L Normal 18-72 [facility] Comment on above: Performed By: #### L [id number] #### [facility] (BEAKER) [address] [place] [address] B-TYPE NATRIURETIC PEPTIDEon 01-11-2024 Natriuretic peptide B (Bld) [Mass/Vol] 1312 pg/mL High 0-100 [facility] Comment on above: Performed By: #### L [id number] ####[facility] (BEAKER)[address] [place] [address] BASIC METABOLIC PANELon 12-23 Anion gap [Moles/Vol] 10 mmol/L Normal 7-20 [facility] Comment on above: Performed By: #### L [id number] ####[facility] (BEAKER)[address] [place] [address] Calcium [Mass/Vol] 8.3 mg/dL Low 8.6-10.3 [facility] Comment on above: Performed By: #### L [id number] ####[facility] (BEAKER)[address] [place] [address] Chloride [Moles/Vol] 104 mmol/L Normal 98-107 [facility] Comment on above: Performed By: #### L [id number] ####[facility] (BEAKER)[address] [place] [address] CO2 [Moles/Vol] 26 mmol/L Normal 21-31 [facility] Comment on above: Performed By: #### L [id number] ####[facility] (BEAKER)[address] [place] [address] Creatinine [Mass/Vol] 0.84 mg/dL Normal 0.70-1.30 [facility] Comment on above: Performed By: #### L [id number] ####[facility] (BEAKER)[address] [place] [address] GLOMERULAR FILTRATION RATE ML/MIN/1.73 SQ M.PREDICTED 88.7 mL/min/1.73m*2 Normal >60.0 [facility] Comment on above: Result Comment: [facility]???s estimated glomerular filtration rate (eGFR) will no [...] of individuals. Performed By: #### L [id number] ####[facility] ([facility])[address] [place] [address] Glucose [Mass/Vol] 118 mg/dL High 70-100 [facility] Comment on above: Performed By: #### L [id number] ####[facility] ([facility])[address] [place] [address] Potassium [Moles/Vol] 4.0 mmol/L Normal 3.5-5.1 [facility] Comment on above: Performed By: #### L [id number] ####[facility] ([facility])[address] [place] [address] Sodium [Moles/Vol] 136 mmol/L Normal 136-145 [facility] Comment on above: Performed By: #### L [id number] ####[facility] ([facility])[address] [place] [address] Urea nitrogen [Mass/Vol] 29 mg/dL High 7-25 [facility] Comment on above: Performed By: #### L [id number] ####[facility] ([facility])[address] [place] [address] UREA NITROGEN/CREATININE (MASS RATIO) IN SER/PLAS 34.[address] [facility] Comment on above: Performed By: #### L [id number] ####[facility] (BEAKER)[address] [place] [address] CBC WITH AUTO DIFFERENTIALon 01-11-2024 Basophils (Bld) [#/Vol] 0.04 10*3/uL Normal 0.00-0.20 [facility] Comment on above: Performed By: #### L [id number] #### [facility] [address] [place] [address] Basophils/100 WBC (Bld) 0.5 % Normal 0.0-1.0 [facility] Comment on above: Performed By: #### L [id number] #### [facility] ([facility]) [address] [place] [address] Eosinophils (Bld) [#/Vol] 0.57 10*3/uL High 0.00-0.50 [facility] Comment on above: Performed By: #### L [id number] #### [facility] ([facility]) [address] [place] [address] Eosinophils/100 WBC (Bld) 7.7 % High 0.0-6.0 [facility] Comment on above: Performed By: #### L [id number] #### [facility] ([facility]) [address] [place] [address] Erythrocyte distribution width (RBC) [Ratio] 14.6 % Normal 11.5-15.0 [facility] Comment on above: Performed By: #### L [id number] #### [facility] ([facility] [address] [place] [address] ERYTHROCYTE MEAN CORPUSCULAR HEMOGLOBIN CONCENTRATION (G/DL) BY AUTOMATED 32.9 g/dL Normal 32.0-35.0 [facility] Comment on above: Performed By: #### L [id number] #### [facility] (BEAKER) [address] [place] [address] Hematocrit (Bld) [Volume fraction] 34.0 % Low 39.0-55.0 [facility] Comment on above: Performed By: #### L [id number] #### [facility] (BEAKER) [address] [place] [address] Hemoglobin (Bld) [Mass/Vol] 11.2 g/dL Low 13.0-17.0 [facility] Comment on above: Performed By: #### L [id number] #### [facility] ([facility]) [address] [place] [address] Immature granulocytes (Bld) [#/Vol] 0.06 10*3/uL Normal 0.00-0.20 [facility] Comment on above: Performed By: #### L [id number] #### [facility] ([facility]) [address] [address] Immature granulocytes/100 WBC (Bld) 0.8 % Normal 0.0-1.0 [facility] Comment on above: Performed By: #### L [id number] #### [facility] ([facility]) [address] [place] [address] Lymphocytes (Bld) [#/Vol] 0.80 10*3/uL Low 1.20-4.00 [facility] Comment on above: Performed By: #### L [id number] #### [facility] ([facility]) [address] [place] [address] Lymphocytes/100 WBC (Bld) 10.8 % Low 20.0-45.0 [facility] Comment on above: Performed By: #### L [id number] #### [facility] ([facility]) [address] [place] [address] MCH (RBC) [Entitic mass] 28.5 pg Normal 27.0-33.0 [facility] Comment on above: Performed By: #### L [id number] #### [facility] [address] [place] [address] MCV (RBC) [Entitic vol] 86.5 fL Normal 82.0-98.0 [facility] Comment on above: Performed By: #### L [id number] #### [facility] (BEAKER) [address] [place] [address] Monocytes (Bld) [#/Vol] 0.70 10*3/uL Normal 0.10-1.00 [facility] Comment on above: Performed By: #### L [id number] #### [facility] (BEAKER) [address] [place] [address] Monocytes/100 WBC (Bld) 9.4 % Normal 5.0-12.0 [facility] Comment on above: Performed By: #### L [id number] #### [facility] (BEAKER) [address] [place] [address] Neutrophils (Bld) [#/Vol] 5.27 10*3/uL Normal 1.60-7.60 [facility] Comment on above: Performed By: #### L [id number] #### [facility] (BEAKER) [address] [place] [address] Neutrophils/100 WBC (Bld) 70.8 % Normal 40.0-72.0 [facility] Comment on above: Performed By: #### L [id number] #### [facility] [address] [place] [address] NRBC (PER 100 WBCS) BY AUTOMATED COUNT 0.0 % Normal 0 [facility] Comment on above: Performed By: #### L [id number] #### [facility] (BEAKER) [address] [place] [address] PLATELETS (10*3/UL) IN BLOOD AUTOMATED COUNT 155 10*3/uL Normal 150-400 [facility] Comment on above: Performed By: #### L [id number] #### [facility] (BEAKER) [address] [place] [address] RBC (Bld) [#/Vol] 3.93 10*6/uL Low 4.20-5.70 [facility] Comment on above: Performed By: #### L [id number] #### [facility] (BEAKER) [address] [place] [address] WBC (Bld) [#/Vol] 7.44 10*3/uL Normal 4.00-10.60 [facility] Comment on above: Performed By: #### L [id number] #### [facility] ([facility]) [address] [place] [address] MAGNESIUMon 01-11-2024 Magnesium [Mass/Vol] 2.3 mg/dL Normal 1.9-2.7 [facility] Comment on above: Performed By: #### L [id number] #### [facility] ([facility]) [address] [place] [address] PHOSPHORUSon 01-11-2024 Magnesium [Mass/Vol] 2.0 mg/dL Low 2.5-5.0 [facility] Comment on above: Performed By: #### L [id number] ####[facility] ([facility])[address] [place] [address] POCT GLUCOSE METER UNSOLICIT ED RESULTSon 01-11-2024 Glucose [Mass/Vol] 151 mg/dL High 70-105 [facility] Comment on above: Order Comment: Waive d Testing in the ED is performed under the ED CLIA certificate #[id number]. Result Comment: [email or web address] Performed By: #### L [id number] #### [facility] ([facility]) [address] [place] [address] Glucose [Mass/Vol] 157 mg/dL High 70-105 [facility] Comment on above: Order Comment: Waive d Testing in the ED is performed under the ED CLIA certificate #[id number]. Result Comment: [email or web address] Performed By: #### L [id number] ####[facility] ([facility])[address] [place] [address] Glucose [Mass/Vol] 150 mg/dL High 70-105 [facility] Comment on above: Order Comment: Waive d Testing in the ED is performed under the ED CLIA certificate #[id number]. Result Comment: [email or web address] Performed By: #### L [id number] ####[facility] (BEAKER)[address] [place] [address] Glucose [Mass/Vol] 127 mg/dL High 70-105 [facility] Comment on above: Order Comment: Waive d Testing in the ED is performed under the ED CLIA certificate #[id number]. Result Comment: [email or web address] Performed By: #### L [id number] #### [facility] (BEAKER) [address] [place] [address] PROCALCITONIN TESTon 024 PROCALCITONIN IN BLOOD 0.09 ng/mL Normal 0.00-0.10 [facility] Comment on above: Result Comment: Susp ected [...] and initial PCT<0.5ng/mL Performed By: #### L [id number] #### [facility] (BEAKER) [address] [place] [address] 30on 01-10-2024 30 Daily Case Managemen t Update Multidisciplinary rounds have been completed. Barriers to Discharge: 01/09- patient came here from [facility] with a complete heart block. [...] PT Recommendations: OT Recommendations: New Consults: Normal [facility] Chapis 01-10-2024 ANES -- Attestation signed by [...] 01/10/24 1300 Procedure: Pacemaker DC new Location: [facility] ANTIQUER 1 EP / [facility] (Cath) Providers: Reno Welch MD [...] attending and fellow. Additional Equipment Requests Normal [facility] BASIC METABOLIC PANELon 12-22 Anion gap [Moles/Vol] 15 mmol/L Normal 7-20 [facility] Comment on above: Performed By: #### L [id number] #### [facility] (BEAKER) [address] [facility] [place] [address] Calcium [Mass/Vol] 8.4 mg/dL Low 8.6-10.3 [facility] Comment on above: Performed By: #### L [id number] #### [facility] (BEAKER) [address] [place] [address] Chloride [Moles/Vol] 97 mmol/L Low 98-107 [facility] Comment on above: Performed By: #### L [id number] #### [facility] (BEAKER) [address] [place] [address] CO2 [Moles/Vol] 21 mmol/L Normal 21-31 [facility] Comment on above: Performed By: #### L [id number] #### [facility] (BEAKER) [address] [place] [address] Creatinine [Mass/Vol] 1.12 mg/dL Normal 0.70-1.30 [facility] Comment on above: Performed By: #### L [id number] #### [facility] (BEAKER) [address] [place] [address] GLOMERULAR FILTRATION RATE ML/MIN/1.73 SQ M.PREDICTED 66.8 mL/min/1.73m*2 Normal >60.0 [facility] Comment on above: Result Comment: [facility]???s estimated glomerular filtration rate (eGFR) will no [...] group of individuals. Performed By: #### L [id number] #### [facility] ([facility]) [address] [place] [address] Glucose [Mass/Vol] 212 mg/dL High 70-100 [facility] Comment on above: Performed By: #### L [id number] #### [facility] ([facility]) [address] [place] [address] Potassium [Moles/Vol] 3.9 mmol/L Normal 3.5-5.1 [facility] Comment on above: Performed By: #### L [id number] #### [facility] ([facility]) [address] [place] [address] Sodium [Moles/Vol] 129 mmol/L Low 136-145 [facility] Comment on above: Performed By: #### L [id number] #### [facility] ([facility]) [address] [place] [address] Urea nitrogen [Mass/Vol] 56 mg/dL High 7-25 [facility] Comment on above: Performed By: #### L [id number] #### [facility] ([facility]) [address] [place] [address] UREA NITROGEN/CREATININE (MASS RATIO) IN SER/PLAS 50.[address] [facility] Comment on above: Performed By: #### L [id number] #### [facility] ([facility]) [address] [place] [address] CBC WITH AUTO DIFFERENTIALon 01-10-2024 Basophils (Bld) [#/Vol] 0.05 10*3/uL Normal 0.00-0.20 [facility] Comment on above: Performed By: #### L [id number] #### [facility] (BEAKER) [address] [place] [address] Basophils/100 WBC (Bld) 0.5 % Normal 0.0-1.0 [facility] Comment on above: Performed By: #### L [id number] #### [facility] (BEAKER) [address] [place] [address] Eosinophils (Bld) [#/Vol] 0.24 10*3/uL Normal 0.00-0.50 [facility] Comment on above: Performed By: #### L [id number] #### [facility] (BEAKER) [address] [place] [address] Eosinophils/100 WBC (Bld) 2.6 % Normal 0.0-6.0 [facility] Comment on above: Performed By: #### L [id number] #### [facility] (BEAKER) [address] [place] [address] Erythrocyte distribution width (RBC) [Ratio] 14.7 % Normal 11.5-15.0 [facility] Comment on above: Performed By: #### L [id number] #### [facility] (BEAKER) [address] [place] [address] ERYTHROCYTE MEAN CORPUSCULAR HEMOGLOBIN CONCENTRATION (G/DL) BY AUTOMATED 32.4 g/dL Normal 32.0-35.0 [facility] Comment on above: Performed By: #### L [id number] #### [facility] (BEAKER) [address] [place] [address] Hematocrit (Bld) [Volume fraction] 35.2 % Low 39.0-55.0 [facility] Comment on above: Performed By: #### L [id number] #### [facility] ([facility]) [address] [place] [address] Hemoglobin (Bld) [Mass/Vol] 11.4 g/dL Low 13.0-17.0 [facility] Comment on above: Performed By: #### L [id number] #### [facility] [address] [place] [address] Immature granulocytes (Bld) [#/Vol] 0.13 10*3/uL Normal 0.00-0.20 [facility] Comment on above: Performed By: #### L [id number] #### [facility] [address] [place] [address] Immature granulocytes/100 WBC (Bld) 1.4 % High 0.0-1.0 [facility] Comment on above: Performed By: #### L [id number] #### [facility] ([facility] [address] [place] [address] Lymphocytes (Bld) [#/Vol] 1.41 10*3/uL Normal 1.20-4.00 [facility] Comment on above: Performed By: #### L [id number] #### [facility] ([facility]) [address] [place] [address] Lymphocytes/100 WBC (Bld) 15.1 % Low 20.0-45.0 [facility] Comment on above: Performed By: #### L [id number] #### [facility] (BEAKER) [address] [place] [address] MCH (RBC) [Entitic mass] 28.5 pg Normal 27.0-33.0 [facility] Comment on above: Performed By: #### L [id number] #### [facility] ([facility]) [address] [place] [address] MCV (RBC) [Entitic vol] 88.0 fL Normal 82.0-98.0 [facility] Comment on above: Performed By: #### L [id number] #### [facility] ([facility]) [address] [place] [address] Monocytes (Bld) [#/Vol] 1.04 10*3/uL High 0.10-1.00 [facility] Comment on above: Performed By: #### L [id number] #### [facility] ([facility]) [address] [address] Monocytes/100 WBC (Bld) 11.1 % Normal 5.0-12.0 [facility] Comment on above: Performed By: #### L [id number] #### [facility] ([facility]) [address] [place] [address] Neutrophils (Bld) [#/Vol] 6.49 10*3/uL Normal 1.60-7.60 [facility] Comment on above: Performed By: #### L [id number] #### [facility] ([facility]) [address] [place] [address] Neutrophils/100 WBC (Bld) 69.3 % Normal 40.0-72.0 [facility] Comment on above: Performed By: #### L [id number] #### [facility] ([facility]) [address] [place] [address] NRBC (PER 100 WBCS) BY AUTOMATED COUNT 0.0 % Normal 0 [facility] Comment on above: Performed By: #### L [id number] #### [facility] ([facility]) [address] [place] [address] PLATELETS (10*3/UL) IN BLOOD AUTOMATED COUNT 168 10*3/uL Normal 150-400 [facility] Comment on above: Performed By: #### L [id number] #### [facility] ([facility]) [address] [place] [address] RBC (Bld) [#/Vol] 4.00 10*6/uL Low 4.20-5.70 [facility] Comment on above: Performed By: #### L [id number] #### [facility] ([facility] [address] [place] [address] WBC (Bld) [#/Vol] 9.36 10*3/uL Normal 4.00-10.60 [facility] Comment on above: Performed By: #### L [id number] #### [facility]) [address] [place] [address] CT HEAD WO IV CONTRASTon CT HEAD [...] Orbits are only partially included in the [id number]. Mild mucosal thickening of the paranasal sinuses. [...] Jayro Castro MD. 9 Invalid Interpretation Code [facility] HPon 01-10-2024 HP -- Attestation signed by [...] to the H&P.plan for PPM today Normal [facility] MAGNESIUMon 01-10-2024 Magnesium [Mass/Vol] 1.7 mg/dL Low 1.9-2.7 [facility] Comment on above: Performed By: #### L [id number] #### [facility] ([facility]) [address] [place] [address] MRSA/MSSA DNA NASALon 2023 MRSA DNA Positive Abnormal Negative [facility] Comment on above: Order Comment: Testi ng [...] colonization. Performed By: #### L [id number] #### [facility] ([facility]) [address] [place] [address] MSSA DNA Negative Normal Negative [facility] Comment on above: Order Comment: Testi ng [...] colonization. Performed By: #### L [id number] #### [facility] ([facility]) [address] [place] [address] PHOSPHORUSon 01-10-2024 Magnesium [Mass/Vol] 2.0 mg/dL Low 2.5-5.0 [facility] Comment on above: Performed By: #### L [id number] #### [facility] ([facility]) [address] [place] [address] POCT GLUCOSE METER UNSOLICIT ED RESULTSon 01-10-2024 Glucose [Mass/Vol] 109 mg/dL High 70-105 [facility] Comment on above: Order Comment: Waive d Testing in the ED is performed under the ED CLIA certificate #[id number]. Result Comment: [email or web address] Performed By: #### L [id number] ####[facility] ([facility])[address] [place] [address] Glucose [Mass/Vol] 172 mg/dL High 70-105 [facility] Comment on above: Order Comment: Waive d Testing in the ED is performed under the ED CLIA certificate #[id number]. Result Comment: [email or web address] Performed By: #### L [id number] #### [facility] ([facility]) [address] [place] [address] Glucose [Mass/Vol] 250 mg/dL High 70-105 [facility] Comment on above: Order Comment: Waive d Testing in the ED is performed under the ED CLIA certificate #[id number]. Result Comment: [email or web address] Performed By: #### L [id number] ####[facility] ([facility])[address] [place] [address] Glucose [Mass/Vol] 241 mg/dL High 70-105 [facility] Comment on above: Order Comment: Waive d Testing in the ED is performed under the ED CLIA certificate #[id number]. Result Comment: [email or web address] Performed By: #### L [id number] ####[facility] ([facility])[address] [place] [address] Glucose [Mass/Vol] 227 mg/dL High 70-105 [facility] Comment on above: Order Comment: Waive d Testing in the ED is performed under the ED CLIA certificate #[id number]. Result Comment: [email or web address] Performed By: #### L [id number] #### [facility] ([facility]) [address] [place] [address] URINALYSISon 01-10-2024 BILIRUBIN, TOTAL PRESENCE IN URINE Negative Normal Negative [facility] Comment on above: Order Comment: Micro scopics not performed on urines with negative chemical reactions unless requested on original order. Performed By: #### L [id number] ####[facility] ([facility])[address] [place] [address] Clarity (U) Clear Normal Clear [facility] Comment on above: Order Comment: Micro scopics not performed on urines with negative chemical reactions unless requested on original order. Performed By: #### L [id number] ####[facility] ([facility])[address] [place] [address] Color (U) Straw Abnormal Yellow [facility] Comment on above: Order Comment: Micro scopics not performed on urines with negative chemical reactions unless requested on original order. Performed By: #### L [id number] ####[facility] ([facility])[address] [place] [address] Glucose (U) [Mass/Vol] Negative Normal [facility] Order Comment: Micro scopics not performed on urines with negative chemical reactions unless requested on original order. Performed By: #### L [id number] ####[facility] ([facility])[address] [place] [address] HEMOGLOBIN PRESENCE IN URINE Negative Normal Negative [facility] Comment on above: Order Comment: Micro scopics not performed on urines with negative chemical reactions unless requested on original order. Performed By: #### L [id number] ####[facility] ([facility])[address] [place] [address] Ketones Ql (U) Trace Abnormal Negative [facility] Comment on above: Order Comment: Micro scopics not performed on urines with negative chemical reactions unless requested on original order. Performed By: #### L [id number] ####[facility] ([facility])[address] [place] [address] LEUKOCYTE ESTERASE PRESENCE IN URINE BY TEST STRIP Negative Normal Negative [facility] Comment on above: Order Comment: Micro scopics not performed on urines with negative chemical reactions unless requested on original order. Performed By: #### L [id number] ####[facility] ([facility])[address] [place] [address] NITRITE PRESENCE IN URINE Negative Normal Negative [facility] Comment on above: Order Comment: Micro scopics not performed on urines with negative chemical reactions unless requested on original order. Performed By: #### L [id number] ####[facility] ([facility])[address] [place] [address] pH (U) 7.0 [pH] Normal 5.0-8.0 [facility] Comment on above: Order Comment: Micro scopics not performed on urines with negative chemical reactions unless requested on original order. Performed By: #### L [id number] ####[facility] ([facility])[address] [place] [address] Protein (U) [Mass/Vol] Negative Normal Negative [facility] Comment on above: Order Comment: Micro scopics not performed on urines with negative chemical reactions unless requested on original order. Performed By: #### L [id number] ####[facility] ([facility])[address] [place] [address] Specific gravity (U) [Rel density] 1.006 Low 1.015-1.020 [facility] Comment on above: Order Comment: Micro scopics not performed on urines with negative chemical reactions unless requested on original order. Performed By: #### L [id number] ####[facility] ([facility])[address] [place] [address] 30on 01-09-2024 30 The patient is Moderately Stable - Low risk of patient condition declining or worsening The patient's goals for the shift include The clinical goals for the shift include Over the shift, the patient did not make progress toward the following goals. Normal [facility] APTTon 01-09-2024 ACTIVATED PARTIAL THROMBOPLASTIN TIME IN PPP BY COAGULATION ASSAY 25.9 Seconds Normal 25.0-35.0 [facility] Comment on above: Result Comment: Clin ical significance of the APTT is questionable in the presence of heparin. Performed By: #### L [id number] ####[facility] ([facility])[address] [place] [address] BASIC METABOLIC PANELon 12-22 Anion gap [Moles/Vol] 12 mmol/L Normal 7-20 [facility] Comment on above: Performed By: #### L [id number] #### [facility] ([facility]) [address] [place] [address] Calcium [Mass/Vol] 8.9 mg/dL Normal 8.6-10.3 [facility] Comment on above: Performed By: #### L [id number] #### [facility] ([facility]) [address] [place] [address] Chloride [Moles/Vol] 101 mmol/L Normal 98-107 [facility] Comment on above: Performed By: #### L [id number] #### [facility] ([facility]) [address] [place] [address] CO2 [Moles/Vol] 27 mmol/L Normal 21-31 [facility] Comment on above: Performed By: #### L [id number] #### [facility] ([facility]) [address] [place] [address] Creatinine [Mass/Vol] 1.33 mg/dL High 0.70-1.30 [facility] Comment on above: Performed By: #### L [id number] #### [facility] ([facility]) [address] [place] [address] GLOMERULAR FILTRATION RATE ML/MIN/1.73 SQ M.PREDICTED 54.4 mL/min/1.73m*2 Low >60.0 [facility] Comment on above: Result Comment: The [facility]???s estimated glomerular filtration rate (eGFR) will no [...] group of individuals. Performed By: #### L [id number] #### [facility] ([facility]) [address] [place] [address] Glucose [Mass/Vol] 181 mg/dL High 70-100 [facility] Comment on above: Performed By: #### L [id number] #### [facility] ([facility]) [address] [place] [address] Potassium [Moles/Vol] 4.3 mmol/L Normal 3.5-5.1 [facility] Comment on above: Performed By: #### L [id number] #### [facility] ([facility]) [address] [place] [address] Sodium [Moles/Vol] 136 mmol/L Normal 136-145 [facility] Comment on above: Performed By: #### L [id number] #### [facility] ([facility]) [address] [place] [address] Urea nitrogen [Mass/Vol] 73 mg/dL High 7-25 [facility] Comment on above: Performed By: #### L [id number] #### [facility]) [address] [place] [address] UREA NITROGEN/CREATININE (MASS RATIO) IN SER/PLAS 54.[address] [facility] Comment on above: Performed By: #### L [id number] #### [facility]) [address] [place] [address] BLOOD CULTUREon 01-09-2024 Bacteria identified Cx Nom (Bld) No growth at 5 days Normal [facility] Comment on above: Performed By: #### L [id number] ####[facility] ([facility])[address] [place] [address] Order Comment: From a different site than #1. Performed By: #### L [id number] #### [facility] ([facility]) [address] [place] [address] CBC WITH AUTO DIFFERENTIALon 01-09-2024 Basophils (Bld) [#/Vol] 0.03 10*3/uL Normal 0.00-0.20 [facility] Comment on above: Performed By: #### L [id number] #### [facility]) [address] [place] [address] Basophils/100 WBC (Bld) 0.2 % Normal 0.0-1.0 [facility] Comment on above: Performed By: #### L [id number] #### [facility]) [address] [place] [address] Eosinophils (Bld) [#/Vol] 0.30 10*3/uL Normal 0.00-0.50 [facility] Comment on above: Performed By: #### L [id number] #### [facility] (BEAKER) [address] [place] [address] Eosinophils/100 WBC (Bld) 2.5 % Normal 0.0-6.0 [facility] Comment on above: Performed By: #### L [id number] #### [facility] ([facility]) [address] [place] [address] Erythrocyte distribution width (RBC) [Ratio] 14.5 % Normal 11.5-15.0 [facility] Comment on above: Performed By: #### L [id number] #### [facility] ([facility]) [address] [place] [address] ERYTHROCYTE MEAN CORPUSCULAR HEMOGLOBIN CONCENTRATION (G/DL) BY AUTOMATED 33.1 g/dL Normal 32.0-35.0 [facility] Comment on above: Performed By: #### L [id number] #### [facility] ([facility]) [address] [place] [address] Hematocrit (Bld) [Volume fraction] 39.6 % Normal 39.0-55.0 [facility] Comment on above: Performed By: #### L [id number] #### [facility] ([facility]) [address] [place] [address] Hemoglobin (Bld) [Mass/Vol] 13.1 g/dL Normal 13.0-17.0 [facility] Comment on above: Performed By: #### L [id number] #### [facility] ([facility]) [address] [place] [address] Immature granulocytes (Bld) [#/Vol] 0.10 10*3/uL Normal 0.00-0.20 [facility] Comment on above: Performed By: #### L [id number] #### [facility] ([facility]) [address] [place] [address] Immature granulocytes/100 WBC (Bld) 0.8 % Normal 0.0-1.0 [facility] Comment on above: Performed By: #### L [id number] #### [facility] ([facility]) [address] [place] [address] Lymphocytes (Bld) [#/Vol] 1.37 10*3/uL Normal 1.20-4.00 [facility] Comment on above: Performed By: #### L [id number] #### [facility] ([facility]) [address] [place] [address] Lymphocytes/100 WBC (Bld) 11.4 % Low 20.0-45.0 [facility] Comment on above: Performed By: #### L [id number] #### [facility] ([facility]) [address] [place] [address] MCH (RBC) [Entitic mass] 29.0 pg Normal 27.0-33.0 [facility] Comment on above: Performed By: #### L [id number] #### [facility] ([facility]) [address] [place] [address] MCV (RBC) [Entitic vol] 87.6 fL Normal 82.0-98.0 [facility] Comment on above: Performed By: #### L [id number] #### [facility] ([facility]) [address] [place] [address] Monocytes (Bld) [#/Vol] 0.86 10*3/uL Normal 0.10-1.00 [facility] Comment on above: Performed By: #### L [id number] #### [facility] ([facility]) [address] [place] [address] Monocytes/100 WBC (Bld) 7.1 % Normal 5.0-12.0 [facility] Comment on above: Performed By: #### L [id number] #### [facility] ([facility]) [address] [place] [address] Neutrophils (Bld) [#/Vol] 9.41 10*3/uL High 1.60-7.60 [facility] Comment on above: Performed By: #### L [id number] #### [facility]) [address] [place] [address] Neutrophils/100 WBC (Bld) 78.0 % High 40.0-72.0 [facility] Comment on above: Performed By: #### L [id number] #### [facility]) [address] [place] [address] NRBC (PER 100 WBCS) BY AUTOMATED COUNT 0.0 % Normal 0 [facility] Comment on above: Performed By: #### L [id number] #### [facility] ([facility]) [address] [place] [place] [address] PLATELETS (10*3/UL) IN BLOOD AUTOMATED COUNT 235 10*3/uL Normal 150-400 [facility] Comment on above: Performed By: #### L [id number] #### [facility] ([facility]) [address] [place] [address] RBC (Bld) [#/Vol] 4.52 10*6/uL Normal 4.20-5.70 [facility] Comment on above: Performed By: #### L [id number] #### [facility] ([facility]) [address] [place] [address] WBC (Bld) [#/Vol] 12.07 10*3/uL High 4.00-10.60 [facility] Comment on above: Performed By: #### L [id number] #### [facility] ([facility]) [address] [place] [place] [address] CONSULTon 01-09-2024 CONSULT -- Attestation signed by [...] 78-year-old man who is transferred from the [facility] for complete heart block. This [facility] when the nurses noted [...] instead proceed with dual-chamber pacemaker placement tomorrow conference interpreter. We will check an echocardiogram prior to [...] significant for dementia has been transferred from [facility] due to high degree AV block. The patient is unable to answer questions appropriately due to his dementia so history was only taken by the signout received from [facility]. The patient was noted to have multiple episodes of presyncope over the last few days and today his heart rate was noted to be in 30s upon their initial evaluation. EKG showed a complete A-V dissociation. When he arrived to [facility], his HR was in low 30s. Dopamine was increased to 10 and started on Isuprel which improved heart rate to mid to high 40s. Patient remained hemodynamically stable. Cardiology ROS: Negative except as mentioned. Past Medical History He has a past medical history of COPD (chronic obstructive pulmonary disease) ([facility]), Seizure ([facility]), and Sleep apnea. Surgical History He has [...] bedtime. Do (more content not included)... Normal [facility] HPon 01-09-2024 -- Attestation signed by Jermaine [...] 78-year-old man who is transferred from the [facility] for complete heart block. This was discovered at the jail where he resides when the nurses noted [...] instead proceed with dual-chamber pacemaker placement tomorrow conference interpreter. We will check an echocardiogram prior to [...] significant for dementia has been transferred from [facility] due to high degree AV block. The patient is unable to answer questions appropriately due to his dementia so history was only taken by the signout received from [facility]. The patient was noted to have multiple episodes of presyncope over the last few days and today his heart rate was noted to be in 30s upon their initial evaluation. EKG showed a complete A-V dissociation. When he arrived to [facility], his HR was in low 30s. Dopamine was increased to 10 and started on Isuprel which improved heart rate to mid to high 40s. Patient remained hemodynamically stable. Cardiology ROS: Negative except as mentioned. Past Medical History He has a past medical history of COPD (chronic obstructive pulmonary disease) ([facility]), Seizure ([facility]), and Sleep apnea. Surgical History He has [...] bedtime. Do (more content not included)... Normal [facility] HP -- Attestation signed by Donnie Cavazos [...] Humphrey Age - 78 y.o. - [address] [facility] # - [id number] Date of Admission - 01/09/2024 1:24 AM Chief Complaint Third-degree heart block History of Present Illness Clyde Humphrey is a 78-year-old gentleman with past medical history significant for dementia has been transferred from [facility] due to high degree AV block. The patient is unable to answer questions appropriately due to his dementia so history was only taken by the signout received from [facility]. The patient was noted to have multiple episodes of presyncope over the last few days and today his heart rate was noted to be in 30s upon their initial evaluation. EKG showed a complete A-V dissociation after which thick reached out to [facility] cardiology for possible pacemaker placement. Due to significant bradycardia the patient is being transferred to [facility] ICU for close hemodynamic monitoring and management. [...] days L (more content not included)... Normal [facility] MAGNESIUMon 01-09-2024 Magnesium [Mass/Vol] 1.9 mg/dL Normal 1.9-2.7 [facility] Comment on above: Performed By: #### L [id number] #### [facility] ([employer]) [address] [place] [address] PHOSPHORUSon 01-09-2024 Magnesium [Mass/Vol] 3.2 mg/dL Normal 2.5-5.0 [facility] Comment on above: Performed By: #### L [id number] #### [facility] ([employer]) [address] [place] [address] POCT GLUCOSE METER UNSOLICIT ED RESULTSon 01-09-2024 Glucose [Mass/Vol] 219 mg/dL High 70-105 [facility] Comment on above: Order Comment: Waive d Testing in the ED is performed under the ED CLIA certificate #[id number]. Result Comment: nlad oos Performed By: #### L [id number] ####[facility] ([employer])[address] [place] [address] Glucose [Mass/Vol] 234 mg/dL High 70-105 [facility] Comment on above: Order Comment: Waive d Testing in the ED is performed under the ED CLIA certificate #[id number]. Result Comment: nlad oos Performed By: #### L [id number] #### [facility] ([employer]) [address] [place] [address] PROTIME-INRon 01-09-2024 INR IN PPP BY COAGULATION ASSAY 0.98 Normal 0.90-1.10 [facility] Comment on above: Result Comment: [facility] P RECOMMENDED INR FOR WARFARIN THERAPY CONDITION [...] CHEST 1995;108:231S-246S. Performed By: #### L [id number] ####[facility] [employer] [facility] [place] [address] PROTHROMBIN TIME (PT) IN PPP BY COAGULATION ASSAY 13.0 Seconds Normal 12.3-14.8 [facility] Comment on above: Performed By: #### L [id number] ####[facility] [employer] [facility] [place] [address] TROPONIN Ion 01-09-2024 Troponin I.cardiac [Mass/Vol] 0.06 ng/mL High 0.00-0.04 [facility] Comment on above: Performed By: #### L [id number] ####[facility] ([facility] [place] [address] Insurance Correspondenceon 1 05-25-2022 Insurance Correspondence [id number]#1. 00TIFF Normal [facility] Coding Queryon 02-17-2023 Coding Query Normal [facility] Discharge Instructionson Discharge Instructions [id number]#1. 00CD:127 Normal [facility] Transfer Documentson 023 Transfer Documents [id number]#1. 00CD:127 Normal [facility] Discharge Note-Nursingon Discharge Note-Nursing Normal [facility] Interdisciplinary Note - Santosh e Manageron 01-23-2023 Interdisciplinary Note - Digital Marketing Associate Normal [facility] Comment on above: Result Comment: Elec tronically Signed By: Jose HAYDEN, Norma\.br\Date and Time Signed: 01/23/23 16:29 EDT Progress Note-Physicianon Progress Note-Physician Normal [facility] Comment on above: Result Comment: Elec tronically Signed By: New Johnson DO\.br\Date and Time Signed: 01/23/23 09:50 EDT Auto Diffon 01-22-2023 Basophils/100 WBC (Bld) 0.7 % Normal 0.0-2.0 [facility] Comment on above: Order Comment: Order Added by Discern Expert. Performed By: #### 2 102528, 15309192, 5225357, 3213551 ####[facility] [address] [place] [address] Basophils/Leukocytes Auto (Bld) [Pure # fraction] 0.1 E9/L Normal 0.0-0.2 [facility] Comment on above: Order Comment: Order Added by Discern Expert. Performed By: #### 2 653702, 32403740, 6110499, 4518457 ####[facility] [address] [place] [address] Eosinophils/100 WBC (Bld) 9.3 % High 0.0-8.0 [facility] Comment on above: Order Comment: Order Added by Discern Expert. Performed By: #### 2 546378, 75087829, 0279357, 3437755 ####[facility] [address] [place] [address] Eosinophils/Leukocytes Auto (Bld) [Pure # fraction] 0.8 E9/L High 0.0-0.5 [facility] Comment on above: Order Comment: Order Added by Discern Expert. Performed By: #### 2 270150, 03636110, 6608542, 5850884 ####[address] [address] Lymphocytes/100 WBC (Bld) 17.2 % Normal 14.0-50.0 [facility] Comment on above: Order Comment: Order Added by Discern Expert. Performed By: #### 2 365274, 67938367, 0051197, 8941567 ####[address] [address] Lymphocytes/Leukocytes Auto (Bld) [Pure # fraction] 1.4 E9/L Normal 1.0-4.0 [facility] Comment on above: Order Comment: Order Added by Discern Expert. Performed By: #### 2 045844, 59938223, 4319441, 9067808 ####[facility] [address] [place] [address] Monocytes/100 WBC (Bld) 10.0 % Normal 4.0-14.0 [facility] Comment on above: Order Comment: Order Added by Bethany Expert. Performed By: #### 2 506947, 72283746, 0075722, 2249498 ####[address] [address] Monocytes/Leukocytes Auto (Bld) [Pure # fraction] 0.8 E9/L Normal 0.2-1.0 [facility] Comment on above: Order Comment: Order Added by Discern Expert. Performed By: #### 2 656487, 90302719, 4018698, 0608294 ####[facility] [address] [place] [address] Neutrophils/100 WBC (Bld) 62.8 % Normal 36.0-75.0 [facility] Comment on above: Order Comment: Order Added by Discern Expert. Performed By: #### 2 311094, 53353527, 9246876, 6393182 ####[address] [place] [address] Neutrophils/Leukocytes Auto (Bld) [Pure # fraction] 5.2 E9/L Normal 2.0-7.5 [facility] Comment on above: Order Comment: Order Added by Discern Expert. Performed By: #### 2 525354, 28792971, 8979429, 5071408 ####[address] [address] CBC w/ Auto Diffon 3 Erythrocyte distribution width (RBC) [Ratio] 15.2 % High 10.9-14.2 [facility] Comment on above: Performed By: #### 2 216276, 46456454, 1160256, 6702529 ####[address] [address] Hematocrit (Bld) [Volume fraction] 43.1 % Normal 37.7-49.0 [facility] Comment on above: Performed By: #### 2 447825, 28212137, 1114789, 9143059 ####[address] [address] Hemoglobin (Bld) [Mass/Vol] 14.6 g/dL Normal 13.5-17.5 [facility] Comment on above: Performed By: #### 2 305319, 13200990, 9100941, 0822939 ####[address] [address] MCH (RBC) [Entitic mass] 28.1 pg Normal 27.0-34.0 [facility] Comment on above: Performed By: #### 2 759595, 51804390, 3736148, 0867309 ####[address] [place] [address] MCHC (RBC) [Mass/Vol] 33.8 g/dL Normal 31.4-36.0 [facility] Comment on above: Performed By: #### 2 683017, 47594808, 2137885, 1011236 ####[facility] [address] [place] [address] MCV (RBC) [Entitic vol] 83.2 fL Normal 80.0-100.[address] [facility] Comment on above: Performed By: #### 2 039317, 67253235, 0576689, 7311348 ####[address] [address] Platelet mean volume (Bld) [Entitic vol] 8.6 fL Normal 6.4-10.8 [facility] Comment on above: Performed By: #### 2 223806, 35703403, 0416180, 7391201 ####[address] [address] Platelets (Bld) [#/Vol] 221.0 E9/L Normal 150.0-500.0 [facility] Comment on above: Performed By: #### 2 285904, 97318308, 2554324, 2987088 ####[address] [address] RBC (Bld) [#/Vol] 5.2 E12/L Normal 4.3-5.9 [facility] Comment on above: Performed By: #### 2 173225, 90191428, 3043745, 7073507 ####[address] [address] WBC corrected for nucl RBC Auto (Bld) [#/Vol] 8.3 E9/L Normal 4.0-11.0 [facility] Comment on above: Performed By: #### 2 135904, 35007358, 1519723, 8779099 ####[address] [address] CHEMISTRYOrdered By: Kenny ROP User on 01-22-2023 Glucose [Mass/Vol] 121 mg/dL High 55 - 99 mg/dL [facility] POC Subsection Comment on above: Result Comment: Gareth guerrero RN/ POC Device SN [id number] Invalid Interpretation Code [facility] POC Subsection POC User ID [id number] Invalid Interpretation Code [facility] POC Subsection POC Username LATONIA MALHOTRA Invalid Interpretation Code [facility] POC Subsection CHEMISTRYOrdered By: SYSTEM SYSTEM on [...] 56 mL/min/1.73 m2 Low >=59mL/min/ 1.73 m2 [facility] Chem S Globulin (S) [Mass/Vol] 3.6 g/dL Normal 1.4 - 4.0 gm/dL FT [facility] Glucose [Mass/Vol] 124 mg/dL Normal 55 - 199 mg/dL [facility] Potassium [Moles/Vol] 4.0 mmol/L Normal 3.5 - 5.3 mmol/L [facility] Protein [Mass/Vol] 7.3 g/dL Normal 6.0 - 7.8 gm/dL [facility] Remisol Sodium [Moles/Vol] 138 mmol/L Normal 135 - 145 mmol/L [facility] Remisol Urea nitrogen [Mass/Vol] 42 mg/dL High 5 - 21 mg/dL [facility] Remisol Urea nitrogen/Creatinine [Mass ratio] 32 mg/mg High 10 - 20 [facility] Remisol CMPon 01-22-2023 Albumin [Mass/Vol] 3.7 g/dL Normal 3.3-5.0 [facility] Comment on above: Performed By: #### 2 175303, 87522464, 3192183, 1537194 ####[facility] [address] [place] [address] Albumin/Globulin (S) [Mass conc ratio] 1.0 Low 1.1-2.2 [facility] Comment on above: Performed By: #### 2 552106, 99201260, 1348690, 9551860 ####[facility] [address] [place] [address] ALP [Catalytic activity/Vol] 47 Int._Unit/L Normal 21-98 [facility] Comment on above: Performed By: #### 2 597960, 89733519, 1108630, 3805088 ####[facility] [address] [place] [address] ALT No additional P-5'-P [Catalytic activity/Vol] 21 Int._Unit/L Normal 6-46 [facility] Comment on above: Performed By: #### 2 040146, 81363990, 2378433, 0501316 ####[facility] [address] [place] [address] Anion gap [Moles/Vol] 15 mmol/L Normal 6-16 [facility] Comment on above: Performed By: #### 2 634956, 77387337, 3071631, 5510438 ####[facility] [address] [place] [address] AST [Catalytic activity/Vol] 21 Int._Unit/L Normal 5-43 [facility] Comment on above: Performed By: #### 2 205996, 40769440, 6102975, 1951203 ####[facility] [address] [place] [address] Bilirubin [Mass/Vol] 0.8 mg/dL Normal 0.0-1.1 [facility] Comment on above: Performed By: #### 2 873309, 67094696, 1156527, 8266871 ####[facility] [address] [place] [address] Calcium [Mass/Vol] 9.6 mg/dL Normal 8.9-11.1 [facility] Comment on above: Performed By: #### 2 787742, 88549281, 2858111, 1536700 ####[facility] [address] [place] [address] Chloride [Moles/Vol] 97 mmol/L Low 101-111 [facility] Comment on above: Performed By: #### 2 172729, 74292874, 7595696, 1675409 ####[facility] [address] [place] [address] CO2 [Moles/Vol] 30 mmol/L Normal 21-31 [facility] Comment on above: Performed By: #### 2 612232, 77177471, 2533136, 7961430 ####[facility] [address] [place] [address] Creatinine [Mass/Vol] 1.3 mg/dL Normal 0.5-1.3 [facility] Comment on above: Performed By: #### 2 400863, 38236182, 3369333, 6352823 ####[facility] [address] [place] [address] Globulin (S) [Mass/Vol] 3.6 g/dL Normal 1.4-4.[address] [facility] Comment on above: Performed By: #### 2 754721, 13647449, 1679573, 7180783 ####[address] [place] [address] Glucose [Mass/Vol] 124 mg/dL Normal 55-199 [facility] Comment on above: Result Comment: If t his glucose result represents a fasting glucose, interpretation should refer to the following reference range: 55-99 mg/dL Performed By: #### 2 996860, 07395473, 2517082, 9962314 ####[facility] [address] [place] [address] Potassium [Moles/Vol] 4.0 mmol/L Normal 3.5-5.3 [facility] Comment on above: Performed By: #### 2 332568, 62295663, 2503786, 9261170 ####[facility] [address] [place] [address] Protein [Mass/Vol] 7.3 g/dL Normal 6.0-7.8 [facility] Comment on above: Performed By: #### 2 903867, 60611651, 7238032, 5562495 ####[facility] [address] [place] [address] Sodium [Moles/Vol] 138 mmol/L Normal 135-145 [facility] Comment on above: Performed By: #### 2 897555, 97874271, 5059592, 7492368 ####[facility] [address] [place] [address] Urea nitrogen [Mass/Vol] 42 mg/dL High 5-21 [facility] Comment on above: Performed By: #### 2 346035, 23010737, 3391043, 1102754 ####[facility] [address] [place] [address] Urea nitrogen/Creatinine [Mass ratio] 32 No Units High 10-20 [facility] Comment on above: Performed By: #### 2 140775, 31226178, 9305125, 1292169 ####[facility] [address] [place] [address] Capillary Glucose POCon 09-0 Glucose [Mass/Vol] 121 mg/dL High 55-99 [facility] Comment on above: Result Comment: Gareth guerrero RN/ Performed By: #### 2 60064622 ####[facility] [address] [place] [address] Coding Queryon 01-22-2023 Coding Query Normal [facility] HEMATOLOGYOrdered By: SYSTEM SYSTEM on 01-22-2023 Basophils/100 [...] 8.3 E9/L Normal 4.0 - 11.0 E9/L [facility] [employer] Insurance Correspondence Off iceon 01-22-2023 Insurance Correspondence Office [id number]#1.0 0CD:127 Normal [facility] Interdisciplinary Note - Santosh e Manageron 01-22-2023 Interdisciplinary Note - Digital Marketing Associate Normal [facility] Comment on above: Result Comment: Elec tronically Signed By: Natalie Grant\kade\Date and Time Signed: 01/22/23 11:13 EDT Interdisciplinary Note - Murphy n 01-22-2023 Interdisciplinary Note - OT Normal [facility] Interdisciplinary Note - PTo n 01-22-2023 Interdisciplinary Note - PT Normal [facility] Message from Medicareon Message from Medicare [id number] [id number]#1.0 0CD:127 Normal [facility] Progress Note-Physicianon Progress Note-Physician Normal [facility] Comment on above: Result Comment: Elec tronically Signed By: New Johnson DO\Date and Time Signed: 01/22/23 14:15 EDT eGFRon 01-22-2023 GFR/1.73 sq M.predicted among non-blacks MDRD (S/P/Bld) [Vol rate/Area] 56 mL/min/1.73 m2 Low >=59 [facility] Comment on above: Order Comment: Order added by Discern Expert. 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 Kidney failure is indicated at less than 15 mL/min/1.73m2. Performed By: #### 2 742654, 22491015, 2838315, 9266056 ####[facility] [address] [place] [address] Auto Diffon 01-21-2023 Basophils/100 WBC (Bld) 0.9 % Normal 0.0-2.[address] [facility] Comment on above: Order Comment: Order Added by Discern Expert. Performed By: #### 2 442059, 4030296, 70189220, 63806631, 3209808, 7249438 ####[facility] [address] [place] [address] Basophils/Leukocytes Auto (Bld) [Pure # fraction] 0.1 E9/L Normal 0.0-0.2 [facility] Comment on above: Order Comment: Order Added by Discern Expert. Performed By: #### 2 737216, 8499866, 46063810, 22687324, 0111259, 3143841 ####[facility] [address] [place] [address] Eosinophils/100 WBC (Bld) 3.3 % Normal 0.0-8.0 [facility] Comment on above: Order Comment: Order Added by Discern Expert. Performed By: #### 2 404207, 0652125, 70769981, 69574707, 6567654, 4498635 ####[facility] [address] [place] [address] Eosinophils/Leukocytes Auto (Bld) [Pure # fraction] 0.4 E9/L Normal 0.0-0.5 [facility] Comment on above: Order Comment: Order Added by Discern Expert. Performed By: #### 2 443158, 9866945, 13460260, 83621917, 9680282, 1646045 ####[address] [address] Lymphocytes/100 WBC (Bld) 10.4 % Low 14.0-50.0 [facility] Comment on above: Order Comment: Order Added by Discern Expert. Performed By: #### 2 789187, 2351689, 53192192, 54330088, 3576444, 4401462 ####[address] [address] Lymphocytes/Leukocytes Auto (Bld) [Pure # fraction] 1.2 E9/L Normal 1.0-4.0 [facility] Comment on above: Order Comment: Order Added by Discern Expert. Performed By: #### 2 320869, 0682336, 25905824, 15286437, 3313800, 7513819 ####[address] [address] Monocytes/100 WBC (Bld) 7.4 % Normal 4.0-14.0 [facility] Comment on above: Order Comment: Order Added by Discern Expert. Performed By: #### 2 961623, 6338082, 02135004, 10037867, 8010606, 2611907 ####[address] [address] Monocytes/Leukocytes Auto (Bld) [Pure # fraction] 0.9 E9/L Normal 0.2-1.0 [facility] Comment on above: Order Comment: Order Added by Discern Expert. Performed By: #### 2 291922, 8010760, 13318754, 55687755, 3095626, 9615241 ####[address] [place] [address] Neutrophils/100 WBC (Bld) 78.0 % High 36.0-75.0 [facility] Comment on above: Order Comment: Order Added by Discern Expert. Performed By: #### 2 794211, 8827204, 67823894, 86849140, 9989170, 5426169 ####[facility] [address] [place] [address] Neutrophils/Leukocytes Auto (Bld) [Pure # fraction] 9.1 E9/L High 2.0-7.5 [facility] Comment on above: Order Comment: Order Added by Discern Expert. Performed By: #### 2 625163, 1460908, 06730360, 77571920, 6201448, 6190723 ####[facility] [address] [place] [address] BMPon 01-21-2023 Creatinine [Mass/Vol] 1.2 mg/dL Normal 0.5-1.3 [facility] Comment on above: Performed By: #### 2 517355, 8800348, 23728480, 87053430, 2529032, 8024754 ####[facility] [address] [place] [address] Urea nitrogen [Mass/Vol] 38 mg/dL High 5-21 [facility] Comment on above: Performed By: #### 2 194949, 2457422, 90996959, 76282345, 4795468, 0397471 ####[facility] [address] [place] [address] Urea nitrogen/Creatinine [Mass ratio] 32 No Units High 10-20 [facility] Comment on above: Performed By: #### 2 957629, 1997351, 56273205, 66003081, 7071056, 5185993 ####[facility] [address] [place] [address] Anion gap [Moles/Vol] 14 mmol/L Normal 6-16 [facility] Comment on above: Performed By: #### 2 626155, 8493815, 97139699, 58197141, 7481294, 1276594 ####[facility] [address] [place] [address] Calcium [Mass/Vol] 9.9 mg/dL Normal 8.9-11.1 [facility] Comment on above: Performed By: #### 2 079500, 3991639, 95712846, 73372316, 2061758, 9885834 ####[facility] [address] [place] [address] Chloride [Moles/Vol] 95 mmol/L Low 101-111 [facility] Comment on above: Performed By: #### 2 538986, 5696344, 97793757, 31110985, 0063052, 8629307 ####[facility] [address] [place] [address] CO2 [Moles/Vol] 31 mmol/L Normal 21-31 [facility] Comment on above: Performed By: #### 2 877181, 8212204, 79024238, 58144244, 9743797, 6151554 ####[facility] [address] [place] [address] Glucose [Mass/Vol] 124 mg/dL Normal 55-199 [facility] Comment on above: Result Comment: If t his glucose result represents a fasting glucose, interpretation should refer to the following reference range: 55-99 mg/dL Performed By: #### 2 000875, 9671562, 81656924, 31038405, 3076611, 6934151 ####[facility] [address] [place] [address] Potassium [Moles/Vol] 4.3 mmol/L Normal 3.5-5.3 [facility] Comment on above: Performed By: #### 2 574653, 6376612, 64396479, 22219195, 0149250, 1284772 ####[facility] [address] [place] [address] Sodium [Moles/Vol] 136 mmol/L Normal 135-145 [facility] Comment on above: Performed By: #### 2 136616, 3252596, 59575503, 38778176, 8614762, 8793466 ####[facility] [address] [place] [address] CBC w/ Auto Diffon 3 Erythrocyte distribution width (RBC) [Ratio] 15.4 % High 10.9-14.2 [facility] Comment on above: Performed By: #### 2 240607, 1752630, 67150189, 20156718, 5193098, 7844983 ####[facility] [address] [place] [address] Hematocrit (Bld) [Volume fraction] 42.5 % Normal 37.7-49.0 [facility] Comment on above: Performed By: #### 2 311467, 5638098, 76908761, 15667897, 3895530, 4615013 ####[address] [place] [address] Hemoglobin (Bld) [Mass/Vol] 13.9 g/dL Normal 13.5-17.5 [facility] Comment on above: Performed By: #### 2 350055, 0898077, 42722253, 30792309, 0295438, 3064136 ####[address] [address] MCH (RBC) [Entitic mass] 27.3 pg Normal 27.0-34.0 [facility] Comment on above: Performed By: #### 2 946336, 1573235, 85434583, 68158182, 6165118, 5197562 ####[address] [address] MCHC (RBC) [Mass/Vol] 32.7 g/dL Normal 31.4-36.0 [facility] Comment on above: Performed By: #### 2 823854, 2659250, 02080923, 89125450, 4076817, 8810813 ####[address] [place] [address] MCV (RBC) [Entitic vol] 83.4 fL Normal 80.0-100.[address] [facility] Comment on above: Performed By: #### 2 536416, 2990731, 49843703, 03100017, 3571209, 1772866 ####[facility] [address] [place] [address] Platelet mean volume (Bld) [Entitic vol] 8.6 fL Normal 6.4-10.8 [facility] Comment on above: Performed By: #### 2 511280, 1473617, 59921642, 28174968, 4973601, 5527973 ####[address] [place] [address] Platelets (Bld) [#/Vol] 252.0 E9/L Normal 150.0-500.0 [facility] Comment on above: Performed By: #### 2 644707, 0309265, 40892050, 07249396, 3676846, 2035379 ####[address] [place] [address] RBC (Bld) [#/Vol] 5.1 E12/L Normal 4.3-5.9 [facility] Comment on above: Performed By: #### 2 407657, 0313922, 56997798, 47510588, 2271163, 7437619 ####[facility] [address] [place] [address] WBC corrected for nucl RBC Auto (Bld) [#/Vol] 11.6 E9/L High 4.0-11.0 [facility] Comment on above: Performed By: #### 2 303020, 5821076, 31501198, 44528261, 7428409, 7849177 ####[facility] [address] [place] [address] CHEMISTRYOrdered By: SYSTEM SYSTEM on 01-21-2023 Troponin [...] 62 mL/min/1.73 m2 Normal >=59mL/min/ 1.73 m2 [facility] Chem S Globulin (S) [Mass/Vol] 3.8 g/dL [...] Treatmenton 12-24 Consent for Treatment [id number] [id number]#1.0 0CD:127 Normal [facility] ED Clinical Summaryon 2022 ED Clinical Summary Normal [facility] ED Note-Physicianon 01-22-20 ED Note-Physician Normal [facility] Comment on above: Result Comment: Elec tronically Signed By: Paramjit STEIN, Gustavo Geronimo.br\Date and Time Signed: 01/21/23 19:26 EDT ED Patient Education Noteon 01-21-2023 ED Patient Education Note Normal [facility] ED Patient Summaryon 023 ED Patient Summary Normal [facility] HEMATOLOGYOrdered By: SYSTEM SYSTEM on 01-21-2023 Basophils/100 [...] - 7.5 E9/L FT [employer] HEMATOLOGYOrdered By: Olimpia Cardona on 01-21-2023 [...] Bilirubin.direct [Mass/Vol] 0.1 mg/dL Normal 0.1-0.4 [facility] Comment on above: Performed By: #### 2 818483, 4460234, 93907456, 72837103, 6605539, 0863304 ####[facility] [address] [place] [address] Bilirubin.indirect [Mass or moles/Vol] 0.8 mg/dL Normal 0.1-0.9 [facility] Comment on above: Performed By: #### 2 711293, 1882527, 27984498, 39072976, 5159375, 9427001 ####[facility] [address] [place] [address] Albumin [Mass/Vol] 3.9 g/dL Normal 3.3-5.0 [facility] Comment on above: Performed By: #### 2 536323, 3346514, 30588836, 07159710, 8727981, 4158162 ####[facility] [address] [place] [address] Albumin/Globulin (S) [Mass conc ratio] 1.0 Low 1.1-2.2 [facility] Comment on above: Performed By: #### 2 711736, 5973550, 79754172, 07512808, 8559312, 4301535 ####[address] [address] ALP [Catalytic activity/Vol] 50 Int._Unit/L Normal 21-98 [facility] Comment on above: Performed By: #### 2 703305, 9948427, 74322185, 55245981, 3358695, 7795299 ####[address] [address] ALT No additional P-5'-P [Catalytic activity/Vol] 23 Int._Unit/L Normal 6-46 [facility] Comment on above: Performed By: #### 2 780792, 5773537, 80266336, 76947787, 9824617, 7689198 ####[facility] [address] [place] [address] AST [Catalytic activity/Vol] 22 Int._Unit/L Normal 5-43 [facility] Comment on above: Performed By: #### 2 571298, 6705590, 80585161, [id number], [id number], [id number] ####[facility] [address] [place] [address] Bilirubin [Mass/Vol] 0.9 mg/dL Normal 0.0-1.1 [facility] Comment on above: Performed By: #### 2 [id number], [id number], [id number], [id number], [id number], [id number] ####[facility] [id number] [place] [address] Globulin (S) [Mass/Vol] 3.8 g/dL Normal 1.4-4.[address] [facility] Comment on above: Performed By: #### 2 [id number], [id number], [id number], [id number], [id number], [id number] ####[facility] [address] [place] [address] Protein [Mass/Vol] 7.7 g/dL Normal 6.0-7.8 [facility] Comment on above: Performed By: #### 2 [id number], [id number], 37259708, 34523896, 1593469, 9293676 ####[address] [place] [address] Senior Living Recordson 01-21 Senior Living Records [id number]#1. 00CD:127 Normal [facility] Troponin 0 Hr.on 01-21-2023 Troponin I.cardiac [Mass/Vol] 25.50 pg/mL Normal 15.90-38.40 [facility] Comment on above: Result Comment: The 95% CI (Confidence Interval) PPV (Positive Predictive Value) for myocardial infarction in females is 38 pg/mL, in males 51 pg/mL. The results should be used in conjunction with clinical conditions of myocardial infarction.(Access High Sensitivity Troponin I Instructions For Use, Claudia Bayamon, December 2017) Performed By: #### 2 751383, 3382262, 73020439, 04634118, 7348175, 1808942 ####[facility] [address] [place] [address] Troponin 3 Hr.on 01-21-2023 Troponin I.cardiac [Mass/Vol] 23.90 pg/mL Normal 15.90-38.40 [facility] Comment on above: Result Comment: The 95% CI (Confidence Interval) PPV (Positive Predictive Value) for myocardial infarction in females is 38 pg/mL, in males 51 pg/mL. The results should be used in conjunction with clinical conditions of myocardial infarction.(Access High Sensitivity Troponin I Instructions For Use, Claudia Bayamon, December 2017) Performed By: #### 1 [id number] ####[facility] [address] [place] [address] UA With Cult Reflexon 2022 Bilirubin Ql (U) Negative Normal Negative [facility] Comment on above: Performed By: #### 1 2954034 ####[address] [address] Clarity (U) CLEAR Normal Clear [facility] Comment on above: Performed By: #### 1 1964480 ####[address] [address] Color (U) STRAW Abnormal Yellow [facility] Comment on above: Performed By: #### 1 7068238 ####[address] [address] Epithelial cells.squamous LM.HPF (Urine sed) [#/Area] 0-2 Normal 0-2 [facility] Comment on above: Performed By: #### 1 2745127 ####[address] [address] Glucose Test strip (U) [Mass/Vol] Negative Normal Negative [facility] Comment on above: Performed By: #### 1 0383985 ####[address] [address] Hemoglobin Ql (U) Negative Normal Negative [facility] Comment on above: Performed By: #### 1 2867614 ####[address] [address] Ketones (U) [Mass/Vol] Negative Normal Negative [facility] Comment on above: Performed By: #### 1 7271634 ####[address] [address] Harrison.plasma/Harrison.R BC (Bld) [Mass ratio] 0-3 Normal 0-3 [facility] Comment on above: Performed By: #### 1 2683175 ####[facility] [address] [place] [address] Nitrite Ql (U) Negative Normal Negative [facility] Comment on above: Performed By: #### 1 8199339 ####[address] [address] pH (U) 6.0 [pH] Invalid Interpretation Code 5.0-9.0 [facility] Comment on above: Performed By: #### 1 3550585 ####[address] [address] Protein (U) [Mass/Vol] Negative Normal Negative [facility] Comment on above: Performed By: #### 1 1262197 ####[address] [address] Specific gravity (U) [Rel density] 1.010 Invalid Interpretation Code 1.005-1.030 [facility] Comment on above: Performed By: #### 1 5860425 ####[address] [address] Type of Urine collection method Clean Catch Normal [facility] Comment on above: Performed By: #### 1 6772003 ####[address] [address] Urobilinogen Qn (U) 0.2 {Lei'U}/dL Normal 0.0-1.0 [facility] Comment on above: Performed By: #### 1 7470491 ####[address] [address] WBC Auto Ql (U) Negative Normal Negative [facility] Comment on above: Performed By: #### 1 2899500 ####[address] [address] WBC LM.HPF (Urine sed) [#/Area] 0-5 Normal 0-5 [facility] Comment on above: Performed By: #### 1 0600274 ####[facility] [address] [place] [address] URINALYSISOrdered By: Karen Vergara on 01-21-2023 Bilirubin [...] PM) Normal Negative [facility] UA Auto SS Harrison.plasma/Harrison.R BC (Bld) [Mass ratio] 0-3 /HPF Normal [...] [facility] UA Auto SS Urobilinogen Qn (U) 0.8023825 {Lei'U}/dL Normal 0.0 - 1.0 EU/dL [facility] UA Auto SS WBC Auto Ql (U) Negative (01/21/23 4:41 PM) Normal Negative [facility] UA Auto SS WBC LM.HPF (Urine sed) [#/Area] 0-5 /HPF Normal 0-5/HPF [facility] UA Auto SS XR Chest Single Viewon 01-21 XR Chest Single View Normal [facility] eGFRon 01-21-2023 GFR/1.73 sq M.predicted among non-blacks MDRD (S/P/Bld) [Vol rate/Area] 62 mL/min/1.73 m2 Normal >=59 [facility] Comment on above: Order Comment: Order added by Discern Expert. 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 Kidney failure is indicated at less than 15 mL/min/1.73m2. Performed By: #### 2 160937, 9851664, 72724836, 75956446, 9638570, 5200622 ####[facility] [address] [place] [address] Discharge Instructionson Discharge Instructions [id number]#1.0 0CD:127 Normal [facility] Capillary Glucose POCon 12-23 Glucose [Mass/Vol] 117 mg/dL High 55-99 [facility] Comment on above: Result Comment: Yazmin bri Meter Performed By: #### 2 59041278 ####[facility] [address] [place] [address] Family Medicine Office/Clini c Noteon 01-15-2023 Family Medicine Office/Clinic Note Normal [facility] Comment on above: Result Comment: Elec tronically Signed By: SHAISTA POTTS, Donta\.br\Date and Time Signed: 01/15/23 16:46 EDT Capillary Glucose POCon 12-23 Glucose [Mass/Vol] 121 mg/dL High 55-99 [facility] Comment on above: Result Comment: Yazmin bri Meter Performed By: #### 2 44289584 ####[facility] [address] [place] [address] Capillary Glucose POCon 12-23 Glucose [Mass/Vol] 127 mg/dL High 55-99 [facility] Comment on above: Result Comment: Yazmin bri Meter Performed By: #### 2 14773290 ####[facility] [address] [place] [address] Capillary Glucose POCon 12-22 Glucose [Mass/Vol] 104 mg/dL High [address] [place] [address] Comment on above: Result Comment: Yazmin bri Meter Performed By: #### 2 29797026 ####[facility] [address] [place] [address] Capillary Glucose POCon 12-22 Glucose [Mass/Vol] 121 mg/dL High - [facility] Comment on above: Result Comment: Yazmin bri Meter Performed By: #### 2 95137175 ####[facility] [address] [place] [address] Capillary Glucose POCon 12-22 Glucose [Mass/Vol] 110 mg/dL [address] Comment on above: Result Comment: Yazmin bri Meter Performed By: #### 2 19832898 ####[facility] [address] [facility] [place] [address] Capillary Glucose POCon 12-22 Glucose [Mass/Vol] 119 mg/dL [address] Comment on above: Result Comment: Yazmin bri Meter Performed By: #### 2 44590907 ####[facility] [address] [place] [address] Capillary Glucose POCon 12-22 Glucose [Mass/Vol] 141 mg/dL [address] Comment on above: Result Comment: Yazmin bri Meter Performed By: #### 2 15220714 ####[facility] [address] [place] [address] Capillary Glucose POCon 12-22 Glucose [Mass/Vol] 104 mg/dL [address] Comment on above: Result Comment: Yazmin bri Meter Performed By: #### 2 87693111 ####[facility] [address] [place] [address] BMPon 12-30-2022 Calcium [Mass/Vol] 9.1 mg/dL Normal 8.9-11.1 [facility] Comment on above: Performed By: #### 7 47418161, 4464374, 07759362 ####[facility] [address] [place] [address] Anion gap [Moles/Vol] 18 mmol/L High 6-16 [facility] Comment on above: Performed By: #### 7 00532048, 2359705, 09663565 ####[facility] [address] [place] [address] Chloride [Moles/Vol] 91 mmol/L Low 101-111 [facility] Comment on above: Performed By: #### 7 35205504, 3050337, 36812852 ####[facility] [address] [place] [address] CO2 [Moles/Vol] 30 mmol/L Normal 21-31 [facility] Comment on above: Performed By: #### 7 38944638, 4524226, 85637620 ####[facility] [address] [place] [address] Creatinine [Mass/Vol] 1.3 mg/dL Normal 0.5-1.3 [facility] Comment on above: Performed By: #### 7 53836351, 3205115, 71072066 ####[facility] [address] [place] [address] Glucose [Mass/Vol] 171 mg/dL Normal 55-199 [facility] Comment on above: Result Comment: If t his glucose result represents a fasting glucose, interpretation should refer to the following reference range: 55-99 mg/dL Performed By: #### 7 [id number], 3419691, 47404575 ####[facility] [address] [place] [address] Potassium [Moles/Vol] 4.2 mmol/L Normal 3.5-5.3 [facility] Comment on above: Performed By: #### 7 18543609, 4168935, 84060614 ####[facility] [address] [place] [address] Sodium [Moles/Vol] 135 mmol/L Normal 135-145 [facility] Comment on above: Performed By: #### 7 13253767, 4314618, 44319079 ####[facility] [address] [place] [address] Urea nitrogen [Mass/Vol] 36 mg/dL High 5-21 [facility] Comment on above: Performed By: #### 7 98715051, 6706512, 76534138 ####[facility] [address] [place] [address] Urea nitrogen/Creatinine [Mass ratio] 28 No Units High 10-20 [facility] Comment on above: Performed By: #### 7 05715337, 7311780, 60746802 ####[facility] [address] [place] [address] BikN9axx 12-30-2022 HbA1c (Bld) [Mass fraction] 6.9 % High <=5.9 [facility] Comment on above: Performed By: #### 7 20856978, 4257067, 55996441 ####[facility] [address] [place] [address] eGFRon 12-30-2022 GFR/1.73 sq M.predicted among non-blacks MDRD (S/P/Bld) [Vol rate/Area] 56 mL/min/1.73 m2 Low >=59 [facility] Comment on above: Order Comment: Order added by Discern Expert. 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 Kidney failure is indicated at less than 15 mL/min/1.73m2. Performed By: #### 7 [id number], 0747284, 45566146 ####[facility] [address] [place] [address] Capillary Glucose POCon 08- Glucose [Mass/Vol] 141 mg/dL High 55-99 [facility] Comment on above: Result Comment: Yazmin bri Meter Performed By: #### 2 07356617 ####[facility] [address] [place] [address] Capillary Glucose POCon 08-0 -2022 Glucose [Mass/Vol] 101 mg/dL High 55-99 [facility] Comment on above: Result Comment: Yazmin bri Meter Performed By: #### 2 75836794 ####[facility] [address] [place] [address] C Blood Charcoalon 3 Blood Culture Charcoal Normal [facility] Comment on above: Performed By: #### 1 3046215 ####[facility] [address] [place] [address] Capillary Glucose POCon 08-0 -2022 Glucose [Mass/Vol] 135 mg/dL High 55-99 [facility] Comment on above: Result Comment: Yazmin bri Meter Performed By: #### 2 39603898 ####[facility] [address] [place] [address] Capillary Glucose POCon 08-0 Glucose [Mass/Vol] 110 mg/dL [facility] [address] [place] [address] Comment on above: Result Comment: Yazmin bri Meter Performed By: #### 2 22780301 ####[facility] [address] [place] [address] Consultation Noteon 12-24-19 23 Consultation Note Normal [facility] Comment on above: Result Comment: Elec tronically Signed By: Marcus POTTS, [place]\.br\Date and Time Signed: 12/23/22 07:33 EDT Family Medicine Office/Clini c Noteon 12-23-2022 Family Medicine Office/Clinic Note Normal [facility] Comment on above: Result Comment: Elec tronically Signed By: Donta NOONAN MD\Toshabr\Date and Time Signed: 12/22/22 22:31 EDT C Blood Charcoalon 3 Blood Culture Charcoal Normal [facility] Comment on above: Performed By: #### 1 [id number] ####[facility] [address] [place] [address] U Legi Agon 12-22-2022 L. pneumophila 1 Ag IA Ql (U) Negative Invalid Interpretation Code Negative [facility] Comment on above: Result Comment: Pres umptive negative for L. pneumophila serogroup 1 antigen in urine,suggesting no recent or current infection. Legionnaires' diseasecannot be ruled out since other serogroups and species may also causedisease.Performed at: Lab[address] [id number] MD Tyler Gurrola Performed By: #### 2 056839 ####[address] [address] C Urineon 12-21-2022 Bacteria identified Cx Nom (U) Normal [facility] Comment on above: Performed By: #### 1 5264629, 9381180 ####[address] [address] Capillary Glucose POCon 11-23 Glucose [Mass/Vol] 134 mg/dL High 55-99 [facility] Comment on above: Result Comment: Yazmin bri Meter Performed By: #### 2 43064371 ####[address] [address] Auto DiffOrdered By: SYSTEM SYSTEM on 12-20-2022 Basophils/100 WBC (Bld) 0.5 % Normal 0.0-2.0 F [facility] HemeAutoSS Comment on above: Order Comment: Order Added by Discern Expert. Performed By: #### 2 169076, 7639833, 24013891, 0812023 ####[address] [place] [address] Basophils/Leukocytes Auto (Bld) [Pure # fraction] 0.0 E9/L Normal 0.0-0.2 [facility] HemeAutoSS Comment on above: Order Comment: Order Added by Discern Expert. Performed By: #### 2 300742, 7571370, 90090669, 5834170 ####[facility] [address] [address] Eosinophils/100 WBC (Bld) 7.9 % Normal 0.0-8.0 [facility] HemeAutoSS Comment on above: Order Comment: Order Added by Discern Expert. Performed By: #### 2 182929, 9314363, 04237763, 9694941 ####[facility] [address] [address] Eosinophils/Leukocytes Auto (Bld) [Pure # fraction] 0.8 E9/L High 0.0-0.5 [facility] HemeAutoSS Comment on above: Order Comment: Order Added by Discern Expert. Performed By: #### 2 078644, 1230104, 99828200, 4391044 ####[facility] [address] [address] Lymphocytes/100 WBC (Bld) 9.5 % Low 14.0-50.0 [facility] HemeAutoSS Comment on above: Order Comment: Order Added by Discern Expert. Performed By: #### 2 507145, 9568580, 76335686, 7094185 ####[facility] [address] [address] Lymphocytes/Leukocytes Auto (Bld) [Pure # fraction] 1.0 E9/L Normal 1.0-4.0 [facility] HemeAutoSS Comment on above: Order Comment: Order Added by Discern Expert. Performed By: #### 2 454824, 7947679, 62462591, 2238265 ####[facility] [address] [address] Monocytes/100 WBC (Bld) 7.6 % Normal 4.0-14.0 F [facility] HemeAutoSS Comment on above: Order Comment: Order Added by Discern Expert. Performed By: #### 2 263225, 9651068, 12255318, 2447256 ####[address] [address] Monocytes/Leukocytes Auto (Bld) [Pure # fraction] 0.8 E9/L Normal 0.2-1.0 [facility] HemeAutoSS Comment on above: Order Comment: Order Added by Discern Expert. Performed By: #### 2 383188, 8251937, 72997821, 4945716 ####[facility] [address] [place] [address] Neutrophils/100 WBC (Bld) 74.5 % Normal 36.0-75.0 FT HemeAutoSS Comment on above: Order Comment: Order Added by Discern Expert. Performed By: #### 2 499376, 7161941, 31376175, 2546108 ####[facility] [address] [address] Neutrophils/Leukocytes Auto (Bld) [Pure # fraction] 7.7 E9/L High 2.0-7.5 [facility] HemeAutoSS Comment on above: Order Comment: Order Added by Discern Expert. Performed By: #### 2 518095, 7834662, 28953002, 4133387 ####[facility] [address] [address] BMPOrdered By: SYSTEM SYSTEM on 12-20-2022 Anion gap [Moles/Vol] 8 mmol/L Normal 6-16 [facility] C [facility] Comment on above: Performed By: #### 2 298579, 3219578, 59183270, 7732429 ####[facility] [address] [address] Calcium [Mass/Vol] 7.9 mg/dL Low 8.9-11.1 [facility] R emisol Comment on above: Performed By: #### 2 946814, 1029035, 24180579, 3619312 ####[address] [address] Chloride [Moles/Vol] 105 mmol/L Normal 101-111 [facility] Remisol Comment on above: Performed By: #### 2 356562, 7948358, 92649754, 8144728 ####[facility] [address] [place] [address] CO2 [Moles/Vol] 25 mmol/L Normal 21-31 [facility] Ashwin luanne Comment on above: Performed By: #### 2 460784, 9073439, 09128536, 7861275 ####[facility] [address] [place] [address] Creatinine [Mass/Vol] 1.0 mg/dL Normal 0.5-1.3 [facility] Comment on above: Performed By: #### 2 238270, 6094773, 70427207, 1095077 ####[facility] [address] [place] [address] Glucose [Mass/Vol] 106 mg/dL Normal 55-199 [facility] R emisol Comment on above: Result Comment: If t his glucose result represents a fasting glucose, interpretation should refer to the following reference range: 55-99 mg/dL Performed By: #### 2 516735, 0880573, 79495744, 8350104 ####[facility] [address] [place] [address] Potassium [Moles/Vol] 4.4 mmol/L Normal 3.5-5.3 [facility] Comment on above: Performed By: #### 2 920792, 4102554, 32922595, 6066000 ####[facility] [address] [place] [address] Sodium [Moles/Vol] 134 mmol/L Low 135-145 [facility] R emisol Comment on above: Performed By: #### 2 828859, 7916986, 08109556, 3901361 ####[facility] [address] [place] [address] Urea nitrogen [Mass/Vol] 22 mg/dL High 5-21 [facility] Comment on above: Performed By: #### 2 379278, 3170871, 28058476, 4243868 ####[facility] [address] [place] [address] BMPon 12-20-2022 Urea nitrogen/Creatinine [Mass ratio] 22 No Units High 10-20 [facility] Comment on above: Performed By: #### 2 504567, 5056968, 23261619, 5441479 ####[facility] [address] [place] [address] CBC w/ Auto DiffOrdered By: Bony Hdez on 12-20-2022 Erythrocyte distribution width (RBC) [Ratio] 14.7 % High 10.9-14.2 [facility] HemeAutoSS Comment on above: Performed By: #### 2 778252, 1595132, 43886988, 2561207 ####[facility] [address] [address] Hematocrit (Bld) [Volume fraction] 34.6 % Low 37.7-49.0 [facility] HemeAutoSS Comment on above: Performed By: #### 2 332166, 1890048, 14522313, 6948406 ####[address] [address] Hemoglobin (Bld) [Mass/Vol] 11.7 g/dL Low 13.5-17.5 [facility] HemeAutoSS Comment on above: Performed By: #### 2 193029, 3660100, 56589519, 2567757 ####[address] [address] MCH (RBC) [Entitic mass] 28.6 pg Normal 27.0-34.0 [facility] HemeAutoSS Comment on above: Performed By: #### 2 300263, 0525647, 86179519, 5779934 ####[address] [address] MCHC (RBC) [Mass/Vol] 33.7 g/dL Normal 31.4-36.0 [facility] C HemeAutoSS Comment on above: Performed By: #### 2 206152, 1759400, 97098957, 5021059 ####[address] [address] MCV (RBC) [Entitic vol] 84.7 fL Normal 80.0-100.0 F C HemeAutoSS Comment on above: Performed By: #### 2 262857, 3211247, 82395729, 8811387 ####[address] [address] Platelet mean volume (Bld) [Entitic vol] 9.5 fL Normal 6.4-10.8 [facility] HemeAutoSS Comment on above: Performed By: #### 2 373707, 1820918, 87542084, 7262614 ####[facility] [address] [place] [address] Platelets (Bld) [#/Vol] 216.0 E9/L Normal 150.0-500.0 [facility] HemeAutoSS Comment on above: Performed By: #### 2 172020, 0144374, 94506242, 9597078 ####[facility] [address] [place] [address] RBC (Bld) [#/Vol] 4.1 E12/L Low 4.3-5.9 [facility] HemeAutoSS Comment on above: Performed By: #### 2 311365, 9467968, 90999557, 2078024 ####[facility] [address] [place] [address] WBC corrected for nucl RBC Auto (Bld) [#/Vol] 10.3 E9/L Normal 4.0-11.0 [facility] HemeAutoSS Comment on above: Performed By: #### 2 679717, 3587173, 76474813, 3034887 ####[facility] [address] [place] [address] CHEMISTRYOrdered By: Lab ROP User on 12-20-2022 Glucose [Mass/Vol] 109 mg/dL High 55 - 99 mg/dL [facility] POC Subsection Comment on above: Result Comment: Gareth guerrero RN/ POC Device SN [id number] Invalid Interpretation Code [facility] POC Subsection POC User ID [id number] Invalid Interpretation Code [facility] POC Subsection POC Username SAMANTHA LAMBERT Invalid Interpretation Code [facility] POC Subsection CHEMISTRYOrdered By: SYSTEM SYSTEM on 12-20-2022 Urea nitrogen/Creatinine [Mass ratio] 22 mg/mg High 10 - 20 [facility] Remisol Capillary Glucose POCon 11-23 Glucose [Mass/Vol] 198 mg/dL High 55-99 [facility] Comment on above: Result Comment: Yazmin bri Meter Performed By: #### 2 37658679 ####[facility] [address] [place] [address] Glucose [Mass/Vol] 109 mg/dL High 55-99 [facility] Comment on above: Result Comment: Gareth guerrero RN/ Performed By: #### 2 56692213 ####[facility] [address] [place] [address] Discharge Documentationon Discharge Documentation [id number]#1.0 0CD:127 Normal [facility] Inpatient Patient Summaryon 12-20-2022 Inpatient Patient Summary Normal [facility] Message from Medicareon 11-23 Message from Medicare [id number]#1. 00CD:127 Normal [facility] Monitor Recordon 12-20-2022 Monitor Record [id number]#1. 00CD:127 Normal [facility] Monitor Record [id number]#1. 00CD:127 Normal [facility] Monitor Record [id number]#1. 00CD:127 Normal [facility] Progress Note-Nurseon 2022 Progress Note-Nurse SBAR report called fanta Robert. Patient was transferred into wheelchair x2 stand pivot. Patient discharged to [facility] room 17. Transport by Samantha Lambert POCT. Normal [facility] Transfer Documentson 023 Transfer Documents [id number]#1.0 0CD:127 Normal [facility] eGFROrdered By: MICKEY Alvarado on 12-20-2022 GFR/1.73 sq M.predicted among non-blacks MDRD (S/P/Bld) [Vol rate/Area] 77 mL/min/1.73 m2 Normal >=59 [facility] Chem S Comment on above: Order Comment: Order added by Discern Expert. 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 Kidney failure is indicated at less than 15 mL/min/1.73m2. Performed By: #### 2 548877, 1431903, 14819578, 6994531 ####[address] [place] [address] Auto Diffon 12-19-2022 Basophils/100 WBC (Bld) 0.4 % Normal 0.0-2.0 [facility] Comment on above: Order Comment: Order Added by Discern Expert. Performed By: #### 1 0149064, 2773156, 1943679, 8934915 ####[address] [address] Basophils/Leukocytes Auto (Bld) [Pure # fraction] 0.0 E9/L Normal 0.0-0.2 [facility] Comment on above: Order Comment: Order Added by Discern Expert. Performed By: #### 1 9200915, 3065627, 0056905, 3487229 ####[address] [address] Eosinophils/100 WBC (Bld) 4.2 % Normal 0.0-8.0 [facility] Comment on above: Order Comment: Order Added by Discern Expert. Performed By: #### 1 0351584, 0332027, 9685983, 5272681 ####[address] [address] Eosinophils/Leukocytes Auto (Bld) [Pure # fraction] 0.6 E9/L High 0.0-0.5 [facility] Comment on above: Order Comment: Order Added by Discern Expert. Performed By: #### 1 2056357, 2350412, 3485387, 5535462 ####[address] [address] Lymphocytes/100 WBC (Bld) 7.3 % Low 14.0-50.0 [facility] Comment on above: Order Comment: Order Added by Discern Expert. Performed By: #### 1 1320990, 8998170, 0705741, 7225768 ####[facility] [address] [place] [address] Lymphocytes/Leukocytes Auto (Bld) [Pure # fraction] 1.0 E9/L Normal 1.0-4.0 [facility] Comment on above: Order Comment: Order Added by Discern Expert. Performed By: #### 1 9264867, 5907042, 7972998, 5386645 ####[address] [place] [address] Monocytes/100 WBC (Bld) 6.5 % Normal 4.0-14.0 [facility] Comment on above: Order Comment: Order Added by Discern Expert. Performed By: #### 1 1667330, 0959855, 4368686, 9493488 ####[address] [address] Monocytes/Leukocytes Auto (Bld) [Pure # fraction] 0.9 E9/L Normal 0.2-1.0 [facility] Comment on above: Order Comment: Order Added by Discern Expert. Performed By: #### 1 8920312, 6016236, 7990669, 4999464 ####[address] [place] [address] Neutrophils/100 WBC (Bld) 81.6 % High 36.0-75.0 [facility] Comment on above: Order Comment: Order Added by Discern Expert. Performed By: #### 1 7438071, 9186253, 1768824, 8488465 ####[address] [place] [address] Neutrophils/Leukocytes Auto (Bld) [Pure # fraction] 10.7 E9/L High 2.0-7.5 [facility] Comment on above: Order Comment: Order Added by Discern Expert. Performed By: #### 1 7083617, 9224000, 1374942, 1952933 ####[facility] [address] [place] [address] BMPon 12-19-2022 Anion gap [Moles/Vol] 11 mmol/L Normal 6-16 [facility] Comment on above: Performed By: #### 1 7330520, 7350704, 7585321, 3108001 ####[facility] [address] [place] [address] Calcium [Mass/Vol] 8.5 mg/dL Low 8.9-11.1 [facility] Comment on above: Performed By: #### 1 8243292, 0117422, 2471796, 1647774 ####[facility] [address] [place] [address] Chloride [Moles/Vol] 103 mmol/L Normal 101-111 [facility] Comment on above: Performed By: #### 1 0226257, 9519736, 9217025, 6071739 ####[facility] [address] [place] [address] CO2 [Moles/Vol] 28 mmol/L Normal 21-31 [facility] Comment on above: Performed By: #### 1 1150800, 6360189, 9860643, 2691255 ####[facility] [address] [place] [address] Creatinine [Mass/Vol] 1.2 mg/dL Normal 0.5-1.3 [facility] Comment on above: Performed By: #### 1 1347593, 5085066, 6849583, 8608710 ####[facility] [address] [place] [address] Glucose [Mass/Vol] 86 mg/dL Normal 55-199 [facility] Comment on above: Result Comment: If t his glucose result represents a fasting glucose, interpretation should refer to the following reference range: 55-99 mg/dL Performed By: #### 1 4431291, 1135357, 2593945, 1433067 ####[facility] [address] [place] [address] Potassium [Moles/Vol] 4.5 mmol/L Normal 3.5-5.3 [facility] Comment on above: Performed By: #### 1 8087183, 0659285, 7897419, 2449314 ####[facility] [address] [place] [address] Sodium [Moles/Vol] 137 mmol/L Normal 135-145 [facility] Comment on above: Performed By: #### 1 1405257, 3975973, 7181604, 6197935 ####[facility] [address] [place] [address] Urea nitrogen [Mass/Vol] 35 mg/dL High 5-21 [facility] Comment on above: Performed By: #### 1 2731837, 8067039, 1683364, 1497959 ####[facility] [address] [place] [address] Urea nitrogen/Creatinine [Mass ratio] 29 No Units High 10-20 [facility] Comment on above: Performed By: #### 1 9166169, 5661582, 2250179, 7889732 ####[facility] [address] [place] [address] CBC w/ Auto Diffon 3 Erythrocyte distribution width (RBC) [Ratio] 15.0 % High 10.9-14.2 [facility] Comment on above: Performed By: #### 1 4189639, 7613459, 5696901, 2794864 ####[facility] [address] [place] [address] Hematocrit (Bld) [Volume fraction] 38.4 % Normal 37.7-49.0 [facility] Comment on above: Performed By: #### 1 3766199, 7447685, 0334527, 7762576 ####[facility] [address] [place] [address] Hemoglobin (Bld) [Mass/Vol] 12.7 g/dL Low 13.5-17.5 [facility] Comment on above: Performed By: #### 1 5943064, 7007009, 2709380, 7234882 ####[facility] [address] [place] [address] MCH (RBC) [Entitic mass] 27.9 pg Normal 27.0-34.0 [facility] Comment on above: Performed By: #### 1 1492076, 1190693, 8226750, 1985730 ####[place] [address] MCHC (RBC) [Mass/Vol] 32.9 g/dL Normal 31.4-36.0 [facility] Comment on above: Performed By: #### 1 6426416, 7350704, 4423144, 0170180 ####[place] [address] MCV (RBC) [Entitic vol] 84.8 fL Normal 80.0-100.[address] [facility] Comment on above: Performed By: #### 1 4894737, 2052228, 7444572, 0826716 ####[address] [address] Platelet mean volume (Bld) [Entitic vol] 9.5 fL Normal 6.4-10.8 [facility] Comment on above: Performed By: #### 1 1805836, 4724679, 0320012, 7678585 ####[place] [address] Platelets (Bld) [#/Vol] 230.0 E9/L Normal 150.0-500.0 [facility] Comment on above: Performed By: #### 1 3213022, 6696044, 5912906, 4189515 ####[address] [address] RBC (Bld) [#/Vol] 4.5 E12/L Normal 4.3-5.9 [facility] Comment on above: Performed By: #### 1 2205114, 4046558, 9268816, 0747813 ####[address] [address] WBC corrected for nucl RBC Auto (Bld) [#/Vol] 13.1 E9/L High 4.0-11.0 [facility] Comment on above: Performed By: #### 1 2361105, 8259129, 9715123, 5990137 ####[facility] [address] [place] [id number] CHEMISTRYOrdered By: Lab ROP User on 12-19-2022 Glucose [Mass/Vol] 210 mg/dL High 55 - 99 mg/dL [facility] POC Subsection Comment on above: Result Comment: Gareth guerrero RN/ POC Device SN [id number] Invalid Interpretation Code [facility] POC Subsection POC User ID [id number] Invalid Interpretation Code [facility] POC Subsection POC Username SHER GAVIRIA Invalid Interpretation Code [facility] POC Subsection Glucose [Mass/Vol] 111 mg/dL High 55 - 99 mg/dL [facility] POC Subsection Comment on above: Result Comment: Gareth guerrero RN/ POC Device SN [id number] Invalid Interpretation Code [facility] POC Subsection POC User ID [id number] Invalid Interpretation Code [facility] POC Subsection POC [...] 1.2 mg/dL Normal 0.5 - 1.3 mg/dL [facility] Remisol GFR/1.73 sq M.predicted among non-blacks MDRD (S/P/Bld) [Vol rate/Area] 62 mL/min/1.73 m2 Normal >=59mL/min/ 1.73 m2 [facility] Chem S Glucose [Mass/Vol] 86 mg/dL Normal 55 - 199 mg/dL [facility] Remisol Potassium [Moles/Vol] 4.5 mmol/L Normal 3.5 - 5.3 mmol/L [facility] Remisol Sodium [Moles/Vol] 137 mmol/L Normal 135 - 145 mmol/L [facility] Remisol Urea nitrogen [Mass/Vol] 35 mg/dL High 5 - 21 mg/dL [facility] Remisol Urea nitrogen/Creatinine [Mass ratio] 29 mg/mg High 10 - 20 [facility] Remisol Capillary Glucose POCon 11-22 Glucose [Mass/Vol] 210 mg/dL High 55-99 [facility] Comment on above: Result Comment: Gareth guerrero RN/ Performed By: #### 2 [id number] ####[facility] [address] [place] [address] Glucose [Mass/Vol] 111 mg/dL High 55-99 [facility] Comment on above: Result Comment: Gareth guerrero RN/ Performed By: #### 2 60790332 ####[facility] [address] [place] [address] Glucose [Mass/Vol] 201 mg/dL High 55-99 [facility] Comment on above: Result Comment: Gareth GARDINER Performed By: #### 2 18154714 ####[facility] [address] [place] [address] Glucose [Mass/Vol] 93 mg/dL Normal 55-99 [facility] Comment on above: Result Comment: Gareth guerrero RN/ Performed By: #### 2 99149913 ####[facility] [address] [place] [address] HEMATOLOGYOrdered By: SYSTEM SYSTEM on 12-19-2022 Basophils/100 [...] FT HemeAutoSS Monitor Recordon 12-19-2022 Monitor Record [id number]#1. 00CD:127 Normal [facility] Monitor Record [id number]#1. 00CD:127 Normal [facility] Progress Note-Physicianon Progress Note-Physician Normal [facility] Comment on above: Result Comment: Elec tronically Signed By: MICHAEL POTTS, Leslie.candice\Date and Time Signed: 12/19/22 09:47 EDT eGFRon 12-19-2022 GFR/1.73 sq M.predicted among non-blacks MDRD (S/P/Bld) [Vol rate/Area] 62 mL/min/1.73 m2 Normal >=59 [facility] Comment on above: Order Comment: Order added by Discern Expert. 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 Kidney failure is indicated at less than 15 mL/min/1.73m2. Performed By: #### 1 0371223, 8997593, 9289508, 4980565 ####[facility] [address] [place] [address] Auto Diffon 12-18-2022 Basophils/100 WBC (Bld) 0.4 % Normal 0.0-2.0 [facility] Comment on above: Order Comment: Order Added by Discern Expert. Performed By: #### 2 097922, 3041195 ####[facility] [address] [place] [address] Basophils/Leukocytes Auto (Bld) [Pure # fraction] 0.1 E9/L Normal 0.0-0.2 [facility] Comment on above: Order Comment: Order Added by Discern Expert. Performed By: #### 2 048451, 3379696 ####[facility] [address] [place] [address] Eosinophils/100 WBC (Bld) 2.8 % Normal 0.0-8.0 [facility] Comment on above: Order Comment: Order Added by Discern Expert. Performed By: #### 2 040154, 5294658 ####[facility] [address] [place] [address] Eosinophils/Leukocytes Auto (Bld) [Pure # fraction] 0.4 E9/L Normal 0.0-0.5 [facility] Comment on above: Order Comment: Order Added by Discern Expert. Performed By: #### 2 799819, 8622495 ####[address] [address] Lymphocytes/100 WBC (Bld) 9.0 % Low 14.0-50.0 [facility] Comment on above: Order Comment: Order Added by Discern Expert. Performed By: #### 2 530907, 4414099 ####[address] [address] Lymphocytes/Leukocytes Auto (Bld) [Pure # fraction] 1.3 E9/L Normal 1.0-4.0 [facility] Comment on above: Order Comment: Order Added by Discern Expert. Performed By: #### 2 331524, 5297956 ####[address] [address] Monocytes/100 WBC (Bld) 8.3 % Normal 4.0-14.0 [facility] Comment on above: Order Comment: Order Added by Discern Expert. Performed By: #### 2 222800, 8223249 ####[address] [address] Monocytes/Leukocytes Auto (Bld) [Pure # fraction] 1.3 E9/L High 0.2-1.0 [facility] Comment on above: Order Comment: Order Added by Discern Expert. Performed By: #### 2 086221, 7024633 ####[address] [address] Neutrophils/100 WBC (Bld) 79.5 % High 36.0-75.0 [facility] Comment on above: Order Comment: Order Added by Discern Expert. Performed By: #### 2 421480, 6823369 ####[address] [address] Neutrophils/Leukocytes Auto (Bld) [Pure # fraction] 11.9 E9/L High 2.0-7.5 [facility] Comment on above: Order Comment: Order Added by Discern Expert. Performed By: #### 2 426181, 8183302 ####[facility] [address] [place] [address] Basophils/100 WBC (Bld) 0.6 % Normal 0.0-2.0 [facility] Comment on above: Order Comment: Order Added by Discern Expert. Performed By: #### 1 4577204, 8382890, 60049302, 5824617, 67234400, 45967230, 1262954 ####[place] [address] [place] [address] Basophils/Leukocytes Auto (Bld) [Pure # fraction] 0.1 E9/L Normal 0.0-0.2 [facility] Comment on above: Order Comment: Order Added by Bethany Expert. Performed By: #### 1 7346744, 4592122, 37712965, 0085049, 47259644, 15898162, 1582279 ####[address] [address] Eosinophils/100 WBC (Bld) 2.0 % Normal 0.0-8.0 [facility] Comment on above: Order Comment: Order Added by Discern Expert. Performed By: #### 1 2702729, 8375325, 36236529, 7133811, 03319696, 94487088, 6481210 ####[address] [address] Eosinophils/Leukocytes Auto (Bld) [Pure # fraction] 0.3 E9/L Normal 0.0-0.5 [facility] Comment on above: Order Comment: Order Added by Discern Expert. Performed By: #### 1 3631306, 8671335, 96514248, 8757259, 38494021, 34477396, 4384697 ####[place] [address] [place] [address] Lymphocytes/100 WBC (Bld) 7.6 % Low 14.0-50.0 [facility] Comment on above: Order Comment: Order Added by Discern Expert. Performed By: #### 1 2680113, 1765759, 57734812, 5961375, 38810049, 76663686, 1594725 ####[place] [address] [place] [address] Lymphocytes/Leukocytes Auto (Bld) [Pure # fraction] 1.3 E9/L Normal 1.0-4.0 [facility] Comment on above: Order Comment: Order Added by Discern Expert. Performed By: #### 1 4250717, 7136289, 00273635, 0405669, 03530596, 24801649, 2331363 ####[place] [address] [place] [address] Monocytes/100 WBC (Bld) 7.8 % Normal 4.0-14.0 [facility] Comment on above: Order Comment: Order Added by Discern Expert. Performed By: #### 1 2144651, 6414257, 08650611, 8067902, 60299633, 67722384, 2130544 ####[place] [address] [place] [address] Monocytes/Leukocytes Auto (Bld) [Pure # fraction] 1.3 E9/L High 0.2-1.0 [facility] Comment on above: Order Comment: Order Added by Discern Expert. Performed By: #### 1 5977390, 5993023, 19391437, 7821137, 89668410, 05584027, 8272785 ####[place] [address] [place] [address] Neutrophils/100 WBC (Bld) 82.0 % High 36.0-75.0 [facility] Comment on above: Order Comment: Order Added by Discern Expert. Performed By: #### 1 4494765, 7171287, 95324233, 5725097, 32272187, 96067037, 5002841 ####[place] [address] [place] [address] Neutrophils/Leukocytes Auto (Bld) [Pure # fraction] 13.7 E9/L High 2.0-7.5 [facility] Comment on above: Order Comment: Order Added by Discern Expert. Performed By: #### 1 6805157, 0905500, 27535209, 1288075, 59378895, 09145075, 9038129 ####[facility] [address] [place] [address] BMPon 12-18-2022 Creatinine [Mass/Vol] 1.6 mg/dL High 0.5-1.3 [facility] Comment on above: Performed By: #### 2 168727, 6892081, 1342153315, 74499344, 65377335 ####[facility] [address] [place] [address] Urea nitrogen [Mass/Vol] 47 mg/dL High 5-21 [facility] Comment on above: Performed By: #### 2 429045, 9851309, 5625240928, 03618166, 84153657 ####[facility] [address] [place] [address] Urea nitrogen/Creatinine [Mass ratio] 29 No Units High 10-20 [facility] Comment on above: Performed By: #### 2 372606, 4925647, 5495589855, 21427231, 57300895 ####[facility] [address] [place] [address] Anion gap [Moles/Vol] 12 mmol/L Normal 6-16 [facility] Comment on above: Performed By: #### 2 544763, 7058736, 4052461569, 05747994, 84700926 ####[facility] [address] [place] [address] Calcium [Mass/Vol] 8.7 mg/dL Low 8.9-11.1 [facility] Comment on above: Performed By: #### 2 059298, 6640879, 8119639240, 11874005, 60461502 ####[facility] [address] [place] [address] Chloride [Moles/Vol] 97 mmol/L Low 101-111 [facility] Comment on above: Performed By: #### 2 691248, 8059324, 0774569401, 94254437, 96167943 ####[facility] [address] [place] [address] CO2 [Moles/Vol] 32 mmol/L High 21-31 [facility] Comment on above: Performed By: #### 2 558326, 6979815, 4019237413, 38642320, 28062911 ####[facility] [address] [place] [address] Glucose [Mass/Vol] 131 mg/dL Normal 55-199 [facility] Comment on above: Result Comment: If t his glucose result represents a fasting glucose, interpretation should refer to the following reference range: 55-99 mg/dL Performed By: #### 2 047811, 8706115, 6283984916, 40417471, 84362099 ####[facility] [address] [place] [address] Potassium [Moles/Vol] 3.7 mmol/L Normal 3.5-5.3 [facility] Comment on above: Performed By: #### 2 991475, 2997138, 8092565992, 10099287, 36052759 ####[facility] [address] [place] [address] Sodium [Moles/Vol] 137 mmol/L Normal 135-145 [facility] Comment on above: Performed By: #### 2 485274, 5565335, 7995018679, 51551371, 48528284 ####[facility] [address] [place] [address] Creatinine [Mass/Vol] 1.8 mg/dL High 0.5-1.3 [facility] Comment on above: Performed By: #### 1 6208443, 3508468, 57592757, 6152498, 66768216, 24793649, 4276464 ####[facility] [address] [place] [address] Urea nitrogen [Mass/Vol] 49 mg/dL High 5-21 [facility] Comment on above: Performed By: #### 1 4274062, 9192775, 63806620, 2465128, 33162364, 48382096, 2915739 ####[facility] [address] [place] [address] Urea nitrogen/Creatinine [Mass ratio] 27 No Units High 10-20 [facility] Comment on above: Performed By: #### 1 5530141, 2199263, 79445304, 6180186, 85845387, 64299495, 7273413 ####[facility] [address] [place] [address] Anion gap [Moles/Vol] 18 mmol/L High 6-16 [facility] Comment on above: Performed By: #### 1 5296994, 8227309, 19281929, 1749669, 08413097, 93010439, 3668873 ####[facility] [address] [place] [address] Calcium [Mass/Vol] 9.3 mg/dL Normal 8.9-11.1 [facility] Comment on above: Performed By: #### 1 7425615, 8733317, 45276539, 4891925, 03813823, 95276836, 3829056 ####[facility] [address] [place] [address] Chloride [Moles/Vol] 93 mmol/L Low 101-111 [facility] Comment on above: Performed By: #### 1 9845374, 3264285, 21541527, 0820659, 06384223, 06344956, 8046683 ####[facility] [address] [place] [address] CO2 [Moles/Vol] 29 mmol/L Normal 21-31 [facility] Comment on above: Performed By: #### 1 7450294, 4314164, 47798924, 1476353, 77290799, 64941949, 2220720 ####[facility] [address] [place] [address] Glucose [Mass/Vol] 137 mg/dL Normal 55-199 [facility] Comment on above: Result Comment: If t his glucose result represents a fasting glucose, interpretation should refer to the following reference range: 55-99 mg/dL Performed By: #### 1 1998003, 0629557, 71973018, 1225181, 20238284, 67787606, 8593848 ####[facility] [address] [place] [address] Potassium [Moles/Vol] 4.0 mmol/L Normal 3.5-5.3 [facility] Comment on above: Performed By: #### 1 4230935, 4088416, 22144981, 4014859, 10497148, 59433035, 2187512 ####[facility] [address] [place] [address] Sodium [Moles/Vol] 136 mmol/L Normal 135-145 [facility] Comment on above: Performed By: #### 1 7376579, 2856254, 28383567, 0460396, 32201120, 24561861, 6859433 ####[facility] [address] [place] [address] BNPon 12-18-2022 Int Ctr BNP Pass Normal [facility] Comment on above: Performed By: #### 1 0618179, 3759828, 75854298, 0634156, 87871067, 48094350, 6123806 ####[facility] [address] [place] [address] Natriuretic peptide B (Bld) [Mass/Vol] 219 pg/mL High 5-80 [facility] Comment on above: Performed By: #### 1 1661079, 7975317, 32897422, 1067372, 57323404, 08263952, 5656576 ####[facility] [address] [place] [address] CBC w/ Auto Diffon Erythrocyte distribution width (RBC) [Ratio] 14.8 % High 10.9-14.2 [facility] Comment on above: Performed By: #### 2 868863, 9218702 ####[address] [address] Hematocrit (Bld) [Volume fraction] 37.8 % Normal 37.7-49.0 [facility] Comment on above: Performed By: #### 2 027774, 2223301 ####[address] [address] Hemoglobin (Bld) [Mass/Vol] 12.7 g/dL Low 13.5-17.5 [facility] Comment on above: Performed By: #### 2 953735, 9748280 ####[address] [address] MCH (RBC) [Entitic mass] 28.3 pg Normal 27.0-34.0 [facility] Comment on above: Performed By: #### 2 349119, 8333640 ####[address] [address] MCHC (RBC) [Mass/Vol] 33.6 g/dL Normal 31.4-36.0 [facility] Comment on above: Performed By: #### 2 137116, 5208172 ####[address] [address] MCV (RBC) [Entitic vol] 84.2 fL Normal 80.0-100.[address] [facility] Comment on above: Performed By: #### 2 217142, 8735479 ####[address] [address] Platelet mean volume (Bld) [Entitic vol] 9.2 fL Normal 6.4-10.8 [facility] Comment on above: Performed By: #### 2 687754, 8613764 ####[address] [address] Platelets (Bld) [#/Vol] 219.0 E9/L Normal 150.0-500.0 [facility] Comment on above: Performed By: #### 2 358938, 6373940 ####[place] [address] [place] [address] RBC (Bld) [#/Vol] 4.5 E12/L Normal 4.3-5.9 [facility] Comment on above: Performed By: #### 2 792097, 2280761 ####[address] [address] WBC corrected for nucl RBC Auto (Bld) [#/Vol] 15.0 E9/L High 4.0-11.0 [facility] Comment on above: Performed By: #### 2 729517, 9580488 ####[place] [address] Erythrocyte distribution width (RBC) [Ratio] 14.9 % High 10.9-14.2 [facility] Comment on above: Performed By: #### 1 5474442, 3806229, 72850841, 6803336, 50009228, 50834871, 5862340 ####[place] [address] Hematocrit (Bld) [Volume fraction] 42.8 % Normal 37.7-49.0 [facility] Comment on above: Performed By: #### 1 8717618, 1971926, 22672620, 0657277, 73829040, 02568591, 7983695 ####[address] [address] Hemoglobin (Bld) [Mass/Vol] 14.3 g/dL Normal 13.5-17.5 [facility] Comment on above: Performed By: #### 1 6774832, 9632576, 64340659, 7743697, 27334979, 68032699, 2268364 ####[address] [address] MCH (RBC) [Entitic mass] 28.1 pg Normal 27.0-34.0 [facility] Comment on above: Performed By: #### 1 8892422, 3364559, 49694204, 2190248, 82299426, 21562982, 0379415 ####[facility] [address] [place] [address] MCHC (RBC) [Mass/Vol] 33.3 g/dL Normal 31.4-36.0 [facility] Comment on above: Performed By: #### 1 6763611, 6678820, 60885431, 1321141, 23793407, 28096060, 7816952 ####[facility] [address] [place] [address] MCV (RBC) [Entitic vol] 84.3 fL Normal 80.0-100.[address] [facility] Comment on above: Performed By: #### 1 6092486, 1063802, 21718445, 9571326, 53241439, 83838359, 9492345 ####[place] [address] [place] [address] Platelet mean volume (Bld) [Entitic vol] 9.8 fL Normal 6.4-10.8 [facility] Comment on above: Performed By: #### 1 8723573, 9175944, 64931048, 7201224, 85104402, 75725741, 5034693 ####[facility] [address] [place] [address] Platelets (Bld) [#/Vol] 234.0 E9/L Normal 150.0-500.0 [facility] Comment on above: Performed By: #### 1 9059514, 3825891, 45941653, 6749222, 72378327, 76292426, 0026405 ####[facility] [address] [place] [address] RBC (Bld) [#/Vol] 5.1 E12/L Normal 4.3-5.9 [facility] Comment on above: Performed By: #### 1 5624046, 2291363, 04647798, 6406256, 28343221, 74350797, 9527697 ####[place] [address] [place] [address] WBC corrected for nucl RBC Auto (Bld) [#/Vol] 16.7 E9/L High 4.0-11.0 [facility] Comment on above: Result Comment: João nunez reviewed by JENNIFER. Performed By: #### 1 1284173, 7375819, 74829179, 7012913, 69942116, 95831697, 2297841 ####[facility] [address] [place] [address] CHEMISTRYOrdered By: SYSTEM SYSTEM on 12-18-2022 Troponin [...] 47 mg/dL High 5 - 21 mg/dL [facility] Remisol Urea nitrogen/Creatinine [Mass ratio] 29 mg/mg High 10 - 20 [facility] Remisol CHEMISTRYOrdered By: Yanet Apodaca on 12-18-2022 Troponin I.cardiac [Mass/Vol] 18.80 pg/mL Normal 15.90 - 38.40 pg/mL [facility] Natriuretic peptide B (Bld) [Mass/Vol] 219 pg/mL High 5 - 80 pg/mL [facility] HemeManSS CKon 12-18-2022 CK [Catalytic activity/Vol] 55 Int._Unit/L Normal 14-261 [facility] Comment on above: Performed By: #### 2 051448, 7191847, 0675025313, 47899507, 65496767 ####[facility] [address] [place] [address] COAGULATIONOrdered By: Rachael Apodaca on 12-18-2022 aPTT Coag (PPP) [Time] 30.6 s Normal 25.1 - 36.5 second(s) [facility] Auto Coag INR Coag (PPP) [Relative time] 1.1 {INR} Invalid Interpretation Code [facility] Auto Coag PT Coag (PPP) [Time] 12.5 s Normal 9.4 - 1 2.5 second(s) [facility] Auto Coag CT Head or Brain w/o Contras ton 12-18-2022 CT Head or Brain w/o Contrast Normal [facility] CT Spine Cervical w/o Contra ston 12-18-2022 CT Spine Cervical w/o Contrast Normal [facility] Capillary Glucose POCon 11-22 Glucose [Mass/Vol] 212 mg/dL High 55-99 [facility] Comment on above: Result Comment: Gareth guerrero RN/ Performed By: #### 2 68139502 ####[facility] [address] [place] [address] Glucose [Mass/Vol] 97 mg/dL Normal 55-99 [facility] Comment on above: Result Comment: Yazmin gregory Meter Performed By: #### 2 77805333 ####[facility] [address] [place] [address] Glucose [Mass/Vol] 119 mg/dL High 55-99 [facility] Comment on above: Result Comment: Gareth GARDINER Performed By: #### 2 89676824 ####[facility] [address] [place] [address] Glucose [Mass/Vol] 131 mg/dL High 55-99 [facility] Comment on above: Result Comment: Gareth GARDINER Performed By: #### 2 74654795 ####[facility] [address] [place] [address] Consent for Treatmenton 11-22 Consent for Treatment [id number]. 00CD:127 Normal [facility] ED Clinical Summaryon 2022 ED Clinical Summary Normal [facility] ED Note-Physicianon 12-19-19 23 ED Note-Physician Normal [facility] Comment on above: Result Comment: Elec tronically Signed By: Guilherme POTTS, Malcom\.br\Date and Time Signed: 12/18/22 04:33 EDT ED Patient Education Noteon 12-18-2022 ED Patient Education Note Normal [facility] ED Patient Summaryon 023 ED Patient Summary Normal [facility] ED Traumaon 12-18-2022 ED Trauma [id number]#1. 00CD:127 Normal [facility] HEMATOLOGYOrdered By: SYSTEM SYSTEM on 12-18-2022 Basophils/100 [...] Correspondence Off iceon 12-18-2022 Insurance Correspondence Office [id number] 0CD:127 Normal [facility] Interdisciplinary Note - Santosh e Manageron 12-18-2022 Interdisciplinary Note - Digital Marketing Associate [facility] Comment on above: Result Comment: Elec tronically Signed By: Lucero Watson\.br\Date and Time Signed: 12/18/22 14:57 EDT Interdisciplinary Note - Dejuan singon 12-18-2022 Interdisciplinary Note - Nursing Patient he is confused and he does not able to answer my questions. informed staff in [facility] to send current medication list in fax.3N Normal [facility] Interdisciplinary Note - PTo n 12-18-2022 Interdisciplinary Note - PT [facility] Laboratory - Microbiology an d Antimicrobial susceptibilityOrdered By: Karen Vergara on 12-18-2022 Bacteria identified Cx Nom (U) 10,000 cfu/ml Staphylococcus species Continuing incubation [facility] Monitor Recordon 12-18-2022 Monitor Record [id number]. 00CD:127 Normal [facility] No Panel InformationOrdered By: Karen Vergara on 12-18-2022 Blood Culture Charcoal Streptococcus spe cies Staphylococcus species coagulase negative In 1 of 2 blood culture bottles drawn. Isolated from aerobic bottle Preliminary gram stain results of gram positive cocci in clusters Result called to Dr. Mckinney by and results read back for confirmation on 12/19/2022 09:39:39 [facility] No Panel InformationOrdered By: [facility] on 12-18-2022 Blood Culture Charcoal No growth at 2 da ys. Final to follow at 7 days. [facility] PT & PTTon 12-18-2022 aPTT Coag (PPP) [Time] 30.6 second(s) Normal 25.1-36.5 [facility] Comment on above: Result Comment: Para meter [...] the same coagulation reagent and instrumentation as [facility]. Currently there are no coagulation studies available worldwide for children to 14 days, and no normal ranges. Heparin therapeutic range (represented by Anti-Factor Xa activity of 0.2 - 0.4 U/mL) corresponds to PTT of 56.6 - 109.0 sec. Performed By: #### 1 [id number], 6751835, 66737786, 7239428, 46413147, 53100785, 1639157 ####[facility] [address] [place] [address] INR Coag (PPP) [Relative time] 1.1 {INR} Invalid Interpretation Code [facility] Comment on above: Result Comment: INR results are specifically intended to assess patients stabilized on long-term Anticoagulation therapy suggested INR?s ?Less Intensive Anticoagulation? 2.0 ? 3.0Conventional Range 3.0 ? 4.5 Performed By: #### 1 5196888, 9454406, 06036819, 5221336, 67322136, 36903084, 0166735 ####[facility] [address] [place] [address] PT Coag (PPP) [Time] 12.5 second(s) Normal 9.4-12.5 [facility] Comment on above: Result Comment: 15 d [...] the same coagulation reagent and instrumentation as [facility]. Currently there are no coagulation studies available worldwide for children to 14 days, and no normal ranges. Performed By: #### 1 5353614, 0955255, 27048133, 7679154, 33972141, 94482144, 8788615 ####[facility] [address] [place] [address] Procalcitoninon 12-18-2022 Procalcitonin .09 ng/mL Normal .00-.50 [facility] Comment on above: Result Comment: <0.5 ng/mL [...] to 24 hours. Performed By: #### 2 006004, 8034696, [id number], 65125650, 93795642 ####[facility] [address] [place] [address] RAD - Preliminary Cat Scan R eporton 12-18-2022 RAD - Preliminary Cat Scan Report [id number]. 00CD:127 Normal [facility] Troponin 0 Hr.on 12-18-2022 Troponin I.cardiac [Mass/Vol] 23.50 pg/mL Normal 15.90-38.40 [facility] Comment on above: Result Comment: The 95% CI (Confidence Interval) PPV (Positive Predictive Value) for myocardial infarction in females is 38 pg/mL, in males 51 pg/mL. The results should be used in conjunction with clinical conditions of myocardial infarction.(Access High Sensitivity Troponin I Instructions For Use, Claudia Luis, December 2017) Performed By: #### 1 4914140, 7460912, 74872574, 5442481, 14466849, 54275817, 7856668 ####[facility] [address] [place] [address] Troponin 3 Hr.on 12-18-2022 Troponin I.cardiac [Mass/Vol] 18.80 pg/mL Normal 15.90-38.40 [facility] Comment on above: Result Comment: The 95% CI (Confidence Interval) PPV (Positive Predictive Value) for myocardial infarction in females is 38 pg/mL, in males 51 pg/mL. The results should be used in conjunction with clinical conditions of myocardial infarction.(salgomed High Sensitivity Troponin I Instructions For Use, [employer], December 2017) Performed By: #### 1 0979514 ####[facility] [address] [place] [address] Troponin 6 Hr.on 12-18-2022 Troponin I.cardiac [Mass/Vol] 22.50 pg/mL Normal 15.90-38.40 [facility] Comment on above: Result Comment: The 95% CI (Confidence Interval) PPV (Positive Predictive Value) for myocardial infarction in females is 38 pg/mL, in males 51 pg/mL. The results should be used in conjunction with clinical conditions of myocardial infarction.(salgomed High Sensitivity Troponin I Instructions For Use, [employer], December 2017) Performed By: #### 2 668331, 7432446, 9130542527, 20124546, 52879296 ####[facility] [address] [place] [address] Troponin 9 Hr.on 12-18-2022 Troponin I.cardiac [Mass/Vol] 18.90 pg/mL Normal 15.90-38.40 [facility] Comment on above: Result Comment: The 95% CI (Confidence Interval) PPV (Positive Predictive Value) for myocardial infarction in females is 38 pg/mL, in males 51 pg/mL. The results should be used in conjunction with clinical conditions of myocardial infarction.(Access High Sensitivity Troponin I Instructions For Use, [employer], December 2017) Performed By: #### 1 7679710 ####[facility] [address] [place] [address] UA With Cult Reflexon 2022 Bacteria LM Ql (Urine sed) TRACE Normal Trace [facility] Comment on above: Performed By: #### 1 1994917, 2102238 ####[facility] [address] [place] [address] Bilirubin Ql (U) Negative Normal Negative [facility] Comment on above: Performed By: #### 1 3838652, 5831000 ####[facility] [address] [place] [address] Clarity (U) CLEAR Normal Clear [facility] Comment on above: Performed By: #### 1 0138060, 2844265 ####[facility] [address] [place] [address] Color (U) YELLOW Normal Yellow [facility] Comment on above: Performed By: #### 1 9197508, 4115704 ####[facility] [address] [place] [address] Epithelial cells.squamous LM.HPF (Urine sed) [#/Area] 0-2 Normal 0-2 [facility] Comment on above: Performed By: #### 1 2706736, 3592712 ####[facility] [address] [place] [address] Glucose Test strip (U) [Mass/Vol] Negative Normal Negative [facility] Comment on above: Performed By: #### 1 5508604, 2387213 ####[facility] [address] [place] [address] Hemoglobin Ql (U) TRACE Abnormal Negative [facility] Comment on above: Performed By: #### 1 0124492, 3059079 ####[facility] [address] [place] [address] Ketones (U) [Mass/Vol] Negative Normal Negative [facility] Comment on above: Performed By: #### 1 3182130, 1813338 ####[facility] [address] [place] [address] Harrison.plasma/Harrison.R BC (Bld) [Mass ratio] 0-3 Normal 0-3 [facility] Comment on above: Performed By: #### 1 7745348, 2581494 ####[address] [address] Nitrite Ql (U) Negative Normal Negative [facility] Comment on above: Performed By: #### 1 3852748, 7648160 ####[address] [address] pH (U) 6.5 [pH] Invalid Interpretation Code 5.0-9.0 [facility] Comment on above: Performed By: #### 1 2144188, 1225215 ####[address] [address] Protein (U) [Mass/Vol] Negative Normal Negative [facility] Comment on above: Performed By: #### 1 8123998, 3233384 ####[address] [address] Specific gravity (U) [Rel density] 1.020 Invalid Interpretation Code 1.005-1.030 [facility] Comment on above: Performed By: #### 1 4881929, 5364749 ####[place] [address] Type of Urine collection method Clean Catch Normal [facility] Comment on above: Performed By: #### 1 7874060, 6927247 ####[address] [address] Urobilinogen Qn (U) 0.2 {Lei'U}/dL Normal 0.0-1.0 [facility] Comment on above: Performed By: #### 1 6000316, 7140631 ####[address] [address] WBC Auto Ql (U) 3+ Abnormal Negative [facility] Comment on above: Performed By: #### 1 2172063, 5821638 ####[address] [address] WBC LM.HPF (Urine sed) [#/Area] /[HPF] Abnormal 0-5 [facility] Comment on above: Performed By: #### 1 4724415, 9201270 ####[facility] [address] [place] [id number] URINALYSISOrdered By: Houston Castillo on 12-18-2022 Bacteria [...] PM) Normal Negative [facility] UA Auto SS Harrison.plasma/Harrison.R BC (Bld) [Mass ratio] 0-3 /HPF Normal [...] [facility] UA Auto SS Urobilinogen Qn (U) 0.9105436 {Lei'U}/dL Normal 0.0 - 1.0 EU/dL [facility] UA Auto SS WBC Auto Ql (U) 3+ *ABN* (12/18/22 4:45 PM) Invalid Interpretation Code Negative [facility] UA Auto SS WBC LM.HPF (Urine sed) [#/Area] /[HPF] Invalid Interpretation Code 0-5/HPF [facility] UA Auto SS XR Chest Single Viewon 12-18 XR Chest Single View Normal Fish er [facility] XR Pelvis 1 or 2 Viewson XR Pelvis 1 or 2 Views Normal Fi winston [facility] eGFRon 12-18-2022 GFR/1.73 sq M.predicted among non-blacks MDRD (S/P/Bld) [Vol rate/Area] 44 mL/min/1.73 m2 Low >=59 [facility] Comment on above: Order Comment: Order added by Discern Expert. 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 Kidney failure is indicated at less than 15 mL/min/1.73m2. Performed By: #### 2 667930, 4411099, 8981935324, 17745968, 56139996 ####[facility] [address] [place] [address] GFR/1.73 sq M.predicted among non-blacks MDRD (S/P/Bld) [Vol rate/Area] 38 mL/min/1.73 m2 Low >=59 [facility] Comment on above: Order Comment: Order added by Discern Expert. 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 Kidney failure is indicated at less than 15 mL/min/1.73m2. Performed By: #### 1 9528756, 6030131, 67926470, 6687554, 56757748, 41559111, 4581126 ####[facility] [address] [place] [address] Capillary Glucose POCon 11-22 Glucose [Mass/Vol] 165 mg/dL High 55-99 [facility] Comment on above: Result Comment: Yazmin bri Meter Performed By: #### 2 42043721 ####[facility] [address] [place] [address] Glucose [Mass/Vol] 184 mg/dL High [address] Comment on above: Performed By: #### 2 02191304 ####[facility] [address] [facility] [place] [address] Capillary Glucose POCon 11-22 Glucose [Mass/Vol] 184 mg/dL High [address] [place] [address] Comment on above: Result Comment: Yazmin bri Meter Performed By: #### 2 20198823 ####[facility] [address] [place] [address] Glucose [Mass/Vol] 141 mg/dL High [address] [place] [address] Comment on above: Result Comment: Yazmin bri Meter Performed By: #### 2 25321628 ####[facility] [address] [place] [address] Capillary Glucose POCon 11-22 Glucose [Mass/Vol] 183 mg/dL [address] Comment on above: Result Comment: Yazmin bri Meter Performed By: #### 2 59625664 ####[facility] [address] [place] [address] Glucose [Mass/Vol] 147 mg/dL [address] Comment on above: Result Comment: Yazmin bri Meter Performed By: #### 2 90567719 ####[facility] [address] [place] [address] Capillary Glucose POCon 11-22 Glucose [Mass/Vol] 188 mg/dL High [address] [place] [address] Comment on above: Result Comment: Yazmin bri Meter Performed By: #### 2 03120041 ####[facility] [address] [place] [address] Glucose [Mass/Vol] 162 mg/dL [address] Comment on above: Result Comment: Yazmin bri Meter Performed By: #### 2 75087627 ####[facility] [address] [place] [address] Auto Diffon 12-13-2022 Basophils/100 WBC (Bld) 0.0 % Normal 0.0-2.[address] [facility] Comment on above: Order Comment: Order Added by Discern Expert. Performed By: #### 1 2278962, 3098532, 590616006, 5550861, 3742511 ####[place] [address] [place] [address] Basophils/Leukocytes Auto (Bld) [Pure # fraction] 0.0 E9/L Normal 0.0-0.2 [facility] Comment on above: Order Comment: Order Added by Discern Expert. Performed By: #### 1 5627478, 1843243, 263982692, 9975402, 0536335 ####[address] [address] Eosinophils/100 WBC (Bld) 7.6 % Normal 0.0-8.0 [facility] Comment on above: Order Comment: Order Added by Discern Expert. Performed By: #### 1 4761463, 1780873, 802450117, 6518217, 3938643 ####[address] [address] Eosinophils/Leukocytes Auto (Bld) [Pure # fraction] 1.0 E9/L High 0.0-0.5 [facility] Comment on above: Order Comment: Order Added by Discern Expert. Performed By: #### 1 9305504, 4208414, 716254045, 0341742, 8864695 ####[address] [address] Lymphocytes/100 WBC (Bld) 10.3 % Low 14.0-50.0 [facility] Comment on above: Order Comment: Order Added by Bethany Expert. Performed By: #### 1 2481542, 0988481, 981508007, 3856607, 9217500 ####[address] [address] Lymphocytes/Leukocytes Auto (Bld) [Pure # fraction] 1.3 E9/L Normal 1.0-4.0 [facility] Comment on above: Order Comment: Order Added by Discern Expert. Performed By: #### 1 2784714, 0665728, 477811718, 4379349, 3920434 ####[place] [address] [place] [address] Monocytes/100 WBC (Bld) 9.6 % Normal 4.0-14.0 [facility] Comment on above: Order Comment: Order Added by Discern Expert. Performed By: #### 1 8362734, 4592595, 700976513, 2323060, 8029009 ####[facility] [address] [place] [address] Monocytes/Leukocytes Auto (Bld) [Pure # fraction] 1.2 E9/L High 0.2-1.0 [facility] Comment on above: Order Comment: Order Added by Discern Expert. Performed By: #### 1 7469061, 8015841, 918865004, 3572038, 6158424 ####[address] [address] Neutrophils/100 WBC (Bld) 72.5 % Normal 36.0-75.0 [facility] Comment on above: Order Comment: Order Added by Discern Expert. Performed By: #### 1 4611416, 1259730, 736238047, 3838291, 3777409 ####[place] [address] [place] [address] Neutrophils/Leukocytes Auto (Bld) [Pure # fraction] 9.0 E9/L High 2.0-7.5 [facility] Comment on above: Order Comment: Order Added by Discern Expert. Performed By: #### 1 2764954, 3700560, 269717753, 7078217, 9322312 ####[address] [address] CBC w/ Auto Diffon 3 Erythrocyte distribution width (RBC) [Ratio] 15.0 % High 10.9-14.2 [facility] Comment on above: Performed By: #### 1 5154388, 9267253, 775327524, 4705341, 8016146 ####[facility] [address] [place] [address] Hematocrit (Bld) [Volume fraction] 45.2 % Normal 37.7-49.0 [facility] Comment on above: Performed By: #### 1 0151203, 6963429, 182183394, 8572162, 4424378 ####[place] [address] [place] [address] Hemoglobin (Bld) [Mass/Vol] 14.8 g/dL Normal 13.5-17.5 [facility] Comment on above: Performed By: #### 1 2143499, 1286208, 142336896, 3634993, 8827763 ####[address] [address] MCH (RBC) [Entitic mass] 27.8 pg Normal 27.0-34.0 [facility] Comment on above: Performed By: #### 1 6001912, 1409885, 230488082, 0459514, 8484804 ####[address] [address] MCHC (RBC) [Mass/Vol] 32.7 g/dL Normal 31.4-36.0 [facility] Comment on above: Performed By: #### 1 6061383, 1772908, 275665950, 1118965, 4859699 ####[address] [address] MCV (RBC) [Entitic vol] 85.0 fL Normal 80.0-100.[address] [facility] Comment on above: Performed By: #### 1 3404876, 5408321, 726224708, 5708202, 9347393 ####[place] [address] [place] [address] Platelet mean volume (Bld) [Entitic vol] 9.4 fL Normal 6.4-10.8 [facility] Comment on above: Performed By: #### 1 8714323, 0288256, 263107365, 9791811, 9693484 ####[facility] [address] [place] [address] Platelets (Bld) [#/Vol] 193.0 E9/L Normal 150.0-500.0 [facility] Comment on above: Performed By: #### 1 2660163, 4178702, 537891422, 5123058, 2548906 ####[place] [address] [place] [address] RBC (Bld) [#/Vol] 5.3 E12/L Normal 4.3-5.9 [facility] Comment on above: Performed By: #### 1 0434057, 5570528, 237933563, 4874605, 3949400 ####[address] [address] WBC corrected for nucl RBC Auto (Bld) [#/Vol] 12.5 E9/L High 4.0-11.0 [facility] Comment on above: Performed By: #### 1 0647177, 3319193, 084831213, 4041196, 5663586 ####[place] [address] [place] [address] CMPon 12-13-2022 Albumin [Mass/Vol] 3.6 g/dL Normal 3.3-5.0 [facility] Comment on above: Performed By: #### 1 2404840, 0589833, 462547236, 8490816, 1513075 ####[place] [address] [place] [address] Albumin/Globulin (S) [Mass conc ratio] 1.0 Low 1.1-2.2 [facility] Comment on above: Performed By: #### 1 0191284, 1831682, 412242382, 6915136, 9181691 ####[place] [address] [place] [address] ALP [Catalytic activity/Vol] 49 Int._Unit/L Normal 21-98 [facility] Comment on above: Performed By: #### 1 8664333, 6841819, 869180927, 4221090, 3349740 ####[facility] [address] [place] [address] ALT No additional P-5'-P [Catalytic activity/Vol] 21 Int._Unit/L Normal 6-46 [facility] Comment on above: Performed By: #### 1 4471554, 6170608, 242049056, 7731198, 9673871 ####[facility] [address] [place] [address] Anion gap [Moles/Vol] 16 mmol/L Normal 6-16 [facility] Comment on above: Performed By: #### 1 0848814, 0514423, 252693968, 0143298, 8142584 ####[place] [address] [place] [address] AST [Catalytic activity/Vol] 21 Int._Unit/L Normal 5-43 [facility] Comment on above: Performed By: #### 1 1844559, 8707732, 130605961, 2811841, 4499906 ####[facility] [address] [place] [address] Bilirubin [Mass/Vol] 0.6 mg/dL Normal 0.0-1.1 [facility] Comment on above: Performed By: #### 1 9124381, 2587625, 640078522, 6836651, 4537128 ####[place] [address] [place] [address] Calcium [Mass/Vol] 9.4 mg/dL Normal 8.9-11.1 [facility] Comment on above: Performed By: #### 1 9712842, 0525421, 096232004, 4936026, 8049455 ####[place] [address] [place] [address] Chloride [Moles/Vol] 99 mmol/L Low 101-111 [facility] Comment on above: Performed By: #### 1 5702634, 4317196, 758120564, 7065160, 3582137 ####[place] [address] [place] [address] CO2 [Moles/Vol] 31 mmol/L Normal 21-31 [facility] Comment on above: Performed By: #### 1 1715452, 5265950, 578142522, 8369136, 8629443 ####[facility] [address] [place] [address] Creatinine [Mass/Vol] 1.5 mg/dL High 0.5-1.3 [facility] Comment on above: Performed By: #### 1 0664131, 0281544, 651990078, 8145999, 0165647 ####[facility] [address] [place] [address] Globulin (S) [Mass/Vol] 3.7 g/dL Normal 1.4-4.0 [facility] Comment on above: Performed By: #### 1 6197531, 4867680, 682061582, 5864847, 0900759 ####[facility] [address] [place] [address] Glucose [Mass/Vol] 128 mg/dL Normal 55-199 [facility] Comment on above: Result Comment: If t his glucose result represents a fasting glucose, interpretation should refer to the following reference range: 55-99 mg/dL Performed By: #### 1 2456226, 4783285, 187509290, 8766694, 4820211 ####[facility] [address] [place] [address] Potassium [Moles/Vol] 4.1 mmol/L Normal 3.5-5.3 [facility] Comment on above: Performed By: #### 1 3270195, 0579777, 571398071, 6664482, 6128380 ####[facility] [address] [place] [address] Protein [Mass/Vol] 7.3 g/dL Normal 6.0-7.8 [facility] Comment on above: Performed By: #### 1 8641710, 5374673, 997113253, 1532856, 0327298 ####[facility] [address] [place] [address] Sodium [Moles/Vol] 142 mmol/L Normal 135-145 [facility] Comment on above: Performed By: #### 1 3536672, 2863247, 881400059, 0838512, 2476523 ####[facility] [address] [place] [address] Urea nitrogen [Mass/Vol] 57 mg/dL High 5-21 [facility] Comment on above: Performed By: #### 1 8340642, 6409483, 804226528, 6989540, 2536521 ####[facility] [address] [place] [address] Urea nitrogen/Creatinine [Mass ratio] 38 No Units High 10-20 [facility] Comment on above: Performed By: #### 1 7825560, 8894803, 359869239, 7897954, 6679449 ####[facility] [address] [place] [address] Capillary Glucose POCon 11-22 Glucose [Mass/Vol] 256 mg/dL High 55-99 [facility] Comment on above: Result Comment: Yazmin bri Meter Performed By: #### 2 55279432 ####[facility] [address] [place] [address] Glucose [Mass/Vol] 152 mg/dL High 55-99 [facility] Comment on above: Result Comment: Yazmin bri Meter Performed By: #### 2 65837881 ####[facility] [address] [place] [address] ZswL1sii 12-13-2022 HbA1c (Bld) [Mass fraction] 6.5 % High <=5.9 [facility] Comment on above: Performed By: #### 1 0371129, 8136411, 120570516, 8420007, 3066494 ####[facility] [address] [place] [address] eGFRon 12-13-2022 GFR/1.73 sq M.predicted among non-blacks MDRD (S/P/Bld) [Vol rate/Area] 47 mL/min/1.73 m2 Low >=59 [facility] Comment on above: Order Comment: Order added by Discern Expert. 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 Kidney failure is indicated at less than 15 mL/min/1.73m2. Performed By: #### 1 4274294, 0162067, 449751389, 6633820, 7015109 ####[facility] [address] [place] [address] Capillary Glucose POCon 11-22 Glucose [Mass/Vol] 212 mg/dL High [address] [place] [address] Comment on above: Result Comment: Yazmin bri Meter Performed By: #### 2 34064511 ####[facility] [address] [place] [address] Glucose [Mass/Vol] 161 mg/dL [address] Comment on above: Result Comment: Yazmin bri Meter Performed By: #### 2 10803067 ####[facility] [address]ef[address] [place] [address] Capillary Glucose POCon 11-22 Glucose [Mass/Vol] 206 mg/dL [address] Comment on above: Result Comment: Yazmin bri Meter Performed By: #### 2 18321805 ####[facility] [address]ql[address]ll[address] [place] [address] Glucose [Mass/Vol] 152 mg/dL High [address] [place] [address] Comment on above: Result Comment: Yazmin bri Meter Performed By: #### 2 25019735 ####[facility] [address]vmov[address] [place] [address] Capillary Glucose POCon 11-22 Glucose [Mass/Vol] 140 mg/dL [address] Comment on above: Result Comment: Yazmin bri Meter Performed By: #### 2 75686081 ####[facility] [address]cs[address] [place] [address] Capillary Glucose POCon 11-21 Glucose [Mass/Vol] 243 mg/dL High [address] [place] [address] Comment on above: Result Comment: Yazmin bri Meter Performed By: #### 2 48338717 ####[facility] [address]vo[address] [place] [address] Glucose [Mass/Vol] 157 mg/dL High [address] [place] [address] Comment on above: Result Comment: Yazmin bri Meter Performed By: #### 2 23193713 ####[facility] [address] [place] [address] Capillary Glucose POCon 11-21 Glucose [Mass/Vol] 181 mg/dL [address] Comment on above: Result Comment: Yazmin bri Meter Performed By: #### 2 81200742 ####[facility] [address] [place] [address] Capillary Glucose POCon 11-21 Glucose [Mass/Vol] 149 mg/dL High [address] [place] [address] Comment on above: Result Comment: Yazmin bri Meter Performed By: #### 2 44382675 ####[facility] [address]uf[address] [place] [address] Glucose [Mass/Vol] 164 mg/dL [address] Comment on above: Result Comment: Yazmin bri Meter Performed By: #### 2 28229299 ####[facility] [address] [place] [address] Capillary Glucose POCon 11-21 Glucose [Mass/Vol] 265 mg/dL High [address] [place] [address] Comment on above: Result Comment: Yazmin bri Meter Performed By: #### 2 08656352 ####[facility] [address] [place] [address] Glucose [Mass/Vol] 129 mg/dL [address] Comment on above: Result Comment: Yazmin bri Meter Performed By: #### 2 11455716 ####[facility] [address] [place] [address] Family Medicine Office/Clini c Noteon 12-06-2022 Family Medicine Office/Clinic Note Normal [facility] Comment on above: Result Comment: Elec tronically Signed By: SHAISTA POTTS, Donta\.br\Date and Time Signed: 12/06/22 21:11 EDT Capillary Glucose POCon 11-21 Glucose [Mass/Vol] 196 mg/dL High 55-99 [facility] Comment on above: Result Comment: Yazmin bri Meter Performed By: #### 2 32762415 ####[facility] [address]fssev[address] [place] [address] Glucose [Mass/Vol] 159 mg/dL High 55-99 [facility] Comment on above: Result Comment: Yazmin bri Meter Performed By: #### 2 93396934 ####[facility] [address] [place] [address] Capillary Glucose POCon 11-21 Glucose [Mass/Vol] 195 mg/dL High 55-99 [facility] Comment on above: Result Comment: Gareth GARDINER Performed By: #### 2 [id number] ####[facility] [address] [place] [address] Insurance Correspondence Off iceon 12-04-2022 Insurance Correspondence Office [id number]#1. 00CD:127 Normal [facility] Physician Orderon 12-03-2022 Physician Order [id number]#1. 00CD:127 Normal [facility] CHEMISTRYOrdered By: Lab ROP User on 12-02-2022 Glucose [Mass/Vol] 227 mg/dL High 55 - 99 mg/dL [facility] POC Subsection Comment on above: Result Comment: Gareth GARDINER POC Device SN [id number] Invalid Interpretation Code FT POC Subsection POC User ID [id number] Invalid Interpretation Code FT POC Subsection POC Username KINGSTON JAMISON Invalid Interpretation Code [facility] POC Subsection Glucose [Mass/Vol] 127 mg/dL High 55 - 99 mg/dL [facility] POC Subsection Comment on above: Result Comment: Gareth guerrero RN/ POC Device SN [id number] Invalid Interpretation Code [facility] POC Subsection POC User ID [id number] Invalid Interpretation Code [facility] POC Subsection POC Username TOYIN REYNOLDS Invalid Interpretation Code [facility] POC Subsection Capillary Glucose POCon 11-21 Glucose [Mass/Vol] 227 mg/dL High 55-99 [facility] Comment on above: Result Comment: Gareth GARDINER Performed By: #### 2 [id number] ####[facility] [address] [place] [address] Glucose [Mass/Vol] 127 mg/dL High 55-99 [facility] Comment on above: Result Comment: Gareth GARDINER Performed By: #### 2 [id number] ####[facility] [address] [place] [address] Coding Queryon 12-02-2022 Coding Query Normal [facility] Discharge Note-Nursingon Discharge Note-Nursing Normal [facility] Inpatient Clinical Summaryon 12-02-2022 Inpatient Clinical Summary [facility] Inpatient Patient Summaryon 12-02-2022 Inpatient Patient Summary [facility] Insurance Correspondence Off iceon 12-02-2022 Insurance Correspondence Office [id number]#1.00 CD:127 Normal [facility] Interdisciplinary Note - Santosh e Manageron 12-02-2022 Interdisciplinary Note - Digital Marketing Associate [facility] Comment on above: Result Comment: Elec tronically Signed By: Dank HAYDEN, Lisa\.candice\Date and Time Signed: 12/02/22 09:31 EDT Monitor Recordon 12-02-2022 Monitor Record [id number]#1. 00CD:127 Normal [facility] Physician Orderon 12-02-2022 Physician Order [id number]#1. 00CD:127 Normal [facility] Progress Note-Physicianon Progress Note-Physician Normal [facility] Comment on above: Result Comment: Elec tronically Signed By: Adeline COLEMAN\.br\Date and Time Signed: 12/01/22 18:43 EDT\.br\Electronically Co-Signed By: Juan Hdz DO.br\Date and Time Co-Signed: 12/02/22 07:20 EDT Transfer Documentson 023 Transfer Documents [id number]#1. 00CD:127 Normal [facility] BMPon 12-01-2022 Anion gap [Moles/Vol] 13 mmol/L Normal 6-16 [facility] Comment on above: Performed By: #### 1 [id number], 8217854, 1273085, 6675566 ####[facility] [address] [place] [address] Calcium [Mass/Vol] 9.1 mg/dL Normal 8.9-11.1 [facility] Comment on above: Performed By: #### 1 1972598, 4451177, 5397926, 1491655 ####[facility] [address] [place] [address] Chloride [Moles/Vol] 102 mmol/L Normal 101-111 [facility] Comment on above: Performed By: #### 1 6377501, 1525152, 6145444, 2645543 ####[facility] [address] [place] [address] CO2 [Moles/Vol] 28 mmol/L Normal 21-31 [facility] Comment on above: Performed By: #### 1 9468015, 7259815, 8017496, 6315417 ####[facility] [address] [place] [address] Creatinine [Mass/Vol] 1.3 mg/dL Normal 0.5-1.3 [facility] Comment on above: Performed By: #### 1 2821561, 7992712, 8208030, 6593615 ####[facility] [address] [place] [address] Glucose [Mass/Vol] 97 mg/dL Normal 55-199 [facility] Comment on above: Result Comment: If t his glucose result represents a fasting glucose, interpretation should refer to the following reference range: 55-99 mg/dL Performed By: #### 1 3815956, 1888723, 8844610, 2599204 ####[facility] [address] [place] [address] Potassium [Moles/Vol] 4.6 mmol/L Normal 3.5-5.3 [facility] Comment on above: Performed By: #### 1 4488622, 6735520, 2409773, 1819565 ####[facility] [address] [place] [address] Sodium [Moles/Vol] 138 mmol/L Normal 135-145 [facility] Comment on above: Performed By: #### 1 9969506, 2235406, 8251164, 7270038 ####[facility] [address] [place] [address] Urea nitrogen [Mass/Vol] 24 mg/dL High 5-21 [facility] Comment on above: Performed By: #### 1 4754082, 6404847, 6964130, 7072027 ####[facility] [address] [place] [address] Urea nitrogen/Creatinine [Mass ratio] 18 No Units Normal 10-20 [facility] Comment on above: Performed By: #### 1 6538276, 7841165, 0359179, 8509928 ####[facility] [address] [place] [address] CHEMISTRYOrdered By: Lab ROP User on 12-01-2022 Glucose [Mass/Vol] 114 mg/dL High 55 - 99 mg/dL [facility] POC Subsection Comment on above: Result Comment: Gareth guerrero RN/ POC Device SN [id number] Invalid Interpretation Code [facility] POC Subsection POC User ID [id number] Invalid Interpretation Code [facility] POC Subsection POC Username MORGANISAURO MedinaIE Invalid Interpretation Code [facility] POC Subsection CHEMISTRYOrdered By: SYSTEM SYSTEM on 12-01-2022 Anion gap [Moles/Vol] 13 mmol/L Normal 6 - 16 mEq/L [facility] Remisol Calcium [Mass/Vol] 9.1 mg/dL Normal 8.9 - 11. 1 mg/dL FT Remisol Chloride [Moles/Vol] 102 mmol/L Normal 101 - 1 11 mmol/L FT Remisol CK [Catalytic activity/Vol] 211 [iU]/d Normal 14 - 261 Int._Unit/L [facility] Remisol CO2 [Moles/Vol] 28 mmol/L Normal 21 - 31 mmol/L [facility] Remisol Creatinine [Mass/Vol] 1.3 mg/dL Normal 0.5 - 1.3 mg/dL [facility] Remisol GFR/1.73 sq M.predicted among non-blacks MDRD (S/P/Bld) [Vol rate/Area] 56 mL/min/1.73 m2 Low >=59mL/min/ 1.73 m2 [facility] Chem S Glucose [Mass/Vol] 97 mg/dL Normal 55 - 199 mg/dL [facility] Remisol Magnesium [Mass/Vol] 2.1 mg/dL Normal 1.3 - 2 .4 mg/dL [facility] Remisol Potassium [Moles/Vol] 4.6 mmol/L Normal 3.5 - 5.3 mmol/L [facility] Remisol Sodium [Moles/Vol] 138 mmol/L Normal 135 - 145 mmol/L [facility] Remisol Urea nitrogen [Mass/Vol] 24 mg/dL High 5 - 21 mg/dL [facility] Remisol Urea nitrogen/Creatinine [Mass ratio] 18 mg/mg Normal 10 - 20 [facility] Remisol CKon 12-01-2022 CK [Catalytic activity/Vol] 211 Int._Unit/L Normal 14-261 [facility] Comment on above: Performed By: #### 1 4281060, 2723190, 4976661, 4804157 ####[facility] [address] [place] [address] Capillary Glucose POCon 11-21 Glucose [Mass/Vol] 114 mg/dL High 55-99 [facility] Comment on above: Result Comment: Gareth guerrero RN/ Performed By: #### 2 [id number] ####[facility] [address] [place] [address] Glucose [Mass/Vol] 193 mg/dL High 55-99 [facility] Comment on above: Result Comment: Gareth guerrero RN/ Performed By: #### 2 39031173 ####[facility] [address] [place] [address] Glucose [Mass/Vol] 203 mg/dL High 55-99 [facility] Comment on above: Result Comment: Gareth guerrero RN/ Performed By: #### 2 77402739 ####[facility] [address] [place] [address] Glucose [Mass/Vol] 110 mg/dL High 55-99 [facility] Comment on above: Result Comment: Gareth guerrero RN/ Performed By: #### 2 14441213 ####[facility] [address] [place] [address] Interdisciplinary Note - Santosh e Manageron 12-01-2022 Interdisciplinary Note - Digital Marketing Associate Pt is asleep in bed, no family present. Pt is accepted to [facility] side, pending precert at this time. Contact information provided and white board updated, CRM following Normal [facility] Comment on above: Result Comment: Elec tronically Signed By: Dank HAYDEN, Lisa\.candice\Date and Time Signed: 12/01/22 08:20 EDT Ionized Calciumon 12-01-2022 Calcium.ionized ISE [Mass/Vol] 4.8 mg/dL Invalid Interpretation Code 4.5-5.6 [facility] Comment on above: Result Comment: Perf ormed at: [facility] [address] [place], [place] [id number] PhD Michael Cortes Performed By: #### 2 238005, 5121221, 3831942, 06468074, 86497979, 9968783, 97949848, 7715255, 88110438, 091509853, 5978617, 1709881 ####[facility] [address] [place] [address] Magnesiumon 12-01-2022 Magnesium [Mass/Vol] 2.1 mg/dL Normal 1.3-2.4 [facility] Comment on above: Performed By: #### 1 2832717, 4558983, 5089703, 8561506 ####[facility] [address] [place] [address] Progress Note-Physicianon Progress Note-Physician Normal [facility] Comment on above: Result Comment: Elec tronically Signed By: Pao POTTS, Lizeth\.br\Date and Time Signed: 12/01/22 12:41 EDT XR Abdomen 1 Viewon 12-02-19 23 XR Abdomen 1 View Normal [facility] eGFRon 12-01-2022 GFR/1.73 sq M.predicted among non-blacks MDRD (S/P/Bld) [Vol rate/Area] 56 mL/min/1.73 m2 Low >=59 [facility] Comment on above: Order Comment: Order added by Discern Expert. 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 Kidney failure is indicated at less than 15 mL/min/1.73m2. Performed By: #### 1 4637431, 4109548, 0962303, 9714088 ####[facility] [address] [place] [address] BMPon 11-30-2022 Anion gap [Moles/Vol] 11 mmol/L Normal 6-16 [facility] Comment on above: Performed By: #### 2 825208, 1337344, 42760396 ####[facility] [address] [place] [address] Calcium [Mass/Vol] 9.0 mg/dL Normal 8.9-11.1 [facility] Comment on above: Performed By: #### 2 071549, 9492811, 53588597 ####[facility] [address] [place] [address] Chloride [Moles/Vol] 102 mmol/L Normal 101-111 [facility] Comment on above: Performed By: #### 2 301235, 0470771, 15670147 ####[facility] [address] [place] [address] CO2 [Moles/Vol] 31 mmol/L Normal 21-31 [facility] Comment on above: Performed By: #### 2 837161, 7300500, 62080171 ####[facility] [address] [place] [address] Creatinine [Mass/Vol] 1.1 mg/dL Normal 0.5-1.3 [facility] Comment on above: Performed By: #### 2 574285, 9564482, 72040270 ####[facility] [address] [place] [address] Glucose [Mass/Vol] 114 mg/dL Normal 55-199 [facility] Comment on above: Result Comment: If t his glucose result represents a fasting glucose, interpretation should refer to the following reference range: 55-99 mg/dL Performed By: #### 2 283695, 1970810, 83585320 ####[facility] [address] [place] [address] Potassium [Moles/Vol] 3.4 mmol/L Low 3.5-5.3 [facility] Comment on above: Performed By: #### 2 923267, 3257688, 70021932 ####[facility] [address] [place] [address] Sodium [Moles/Vol] 141 mmol/L Normal 135-145 [facility] Comment on above: Performed By: #### 2 781774, 3534091, 80302085 ####[facility] [address] [place] [address] Urea nitrogen [Mass/Vol] 23 mg/dL High 5-21 [facility] Comment on above: Performed By: #### 2 462712, 1506189, 03853711 ####[facility] [address] [place] [address] Urea nitrogen/Creatinine [Mass ratio] 21 No Units High 10-20 [facility] Comment on above: Performed By: #### 2 095189, 7115819, 22876434 ####[facility] [address] [place] [address] CHEMISTRYOrdered By: SYSTEM SYSTEM on 11-30-2022 Anion gap [Moles/Vol] 11 mmol/L Normal 6 - 16 mEq/L [facility] Remisol Calcium [Mass/Vol] 9.0 mg/dL Normal 8.9 - 11. 1 mg/dL [facility] Chloride [Moles/Vol] 102 mmol/L Normal 101 - 1 11 mmol/L [facility] Remisol CO2 [Moles/Vol] 31 mmol/L Normal 21 - 31 mmol/L [facility] Remisol Creatinine [Mass/Vol] 1.1 mg/dL Normal 0.5 - 1.3 mg/dL [facility] Remisol GFR/1.73 sq M.predicted among non-blacks MDRD (S/P/Bld) [Vol rate/Area] 69 mL/min/1.73 m2 Normal >=59mL/min/ 1.73 m2 [facility] Chem S Glucose [Mass/Vol] 114 mg/dL Normal 55 - 199 mg/dL [facility] Magnesium [Mass/Vol] 1.8 mg/dL Normal 1.3 - 2 .4 mg/dL [facility] Remisol Potassium [Moles/Vol] 3.4 mmol/L Low 3.5 - 5.3 mmol/L [facility] Remisol Sodium [Moles/Vol] 141 mmol/L Normal 135 - 145 mmol/L [facility] Remisol Urea nitrogen [Mass/Vol] 23 mg/dL High 5 - 21 mg/dL [facility] Remisol Urea nitrogen/Creatinine [Mass ratio] 21 mg/mg High 10 - 20 [facility] Remisol Capillary Glucose POCon 11-21 Glucose [Mass/Vol] 194 mg/dL High 55-99 [facility] Comment on above: Result Comment: Gareth guerrero RN/ Performed By: #### 2 [id number] ####[facility] [address] [place] [address] Glucose [Mass/Vol] 96 mg/dL Normal 55-99 [facility] Comment on above: Performed By: #### 2 31750812 ####[facility] [address] [place] [address] Glucose [Mass/Vol] 130 mg/dL High 55-99 [facility] Comment on above: Result Comment: Gareth guerrero RN/ Performed By: #### 2 66111912 ####[facility] [address] [place] [address] Glucose [Mass/Vol] 113 mg/dL High 55-99 [facility] Comment on above: Result Comment: Gareth guerrero RN/ Performed By: #### 2 35041511 ####[facility] [address] [place] [address] Echo Transthoracic Completeo n 11-30-2022 Echo Transthoracic Complete Normal [facility] Insurance Correspondence Off iceon 11-30-2022 Insurance Correspondence Office [id number]#1.0 0CD:127 Normal [facility] Interdisciplinary Note - Santosh e Manageron 11-30-2022 Interdisciplinary Note - Digital Marketing Associate [facility] Comment on above: Result Comment: Elec tronically Signed By: Dank HAYDEN, Lisa\.br\Date and Time Signed: 11/30/22 10:48 EDT Magnesiumon 11-30-2022 Magnesium [Mass/Vol] 1.8 mg/dL Normal 1.3-2.4 [facility] Comment on above: Performed By: #### 2 438333, 7933934, 28710943 ####[facility] [address] [place] [address] Message from Medicareon 11-21 Message from Medicare [id number]#1.0 0CD:127 Normal [facility] Progress Note-Physicianon Progress Note-Physician Normal [facility] Comment on above: Result Comment: Elec tronically Signed By: Joanie Jiménez MD\.br\Date and Time Signed: 11/30/22 15:13 EDT Progress Note-Physician Normal [facility] Comment on above: Result Comment: Elec tronically Signed By: Pao POTTS, Lizeth\.br\Date and Time Signed: 11/30/22 14:52 EDT UA With Cult Reflexon 2022 Bacteria LM Ql (Urine sed) TRACE Normal Trace [facility] Comment on above: Order Comment: Urina ry Catheter Insertion triggered Urinalysis With Culture Reflex order by discern. Performed By: #### 1 1978716 ####[facility] [address] [place] [address] Bilirubin Ql (U) Negative Normal Negative [facility] Comment on above: Order Comment: Urina ry Catheter Insertion triggered Urinalysis With Culture Reflex order by discern. Performed By: #### 1 8310042 ####[facility] [address] [place] [address] Clarity (U) CLEAR Normal Clear [facility] Comment on above: Order Comment: Urina ry Catheter Insertion triggered Urinalysis With Culture Reflex order by discern. Performed By: #### 1 0338015 ####[address] [address] Color (U) YELLOW Normal Yellow [facility] Comment on above: Order Comment: Urina ry Catheter Insertion triggered Urinalysis With Culture Reflex order by discern. Performed By: #### 1 0697780 ####[address] [address] Epithelial cells.squamous LM.HPF (Urine sed) [#/Area] 0-2 Normal 0-2 [facility] Comment on above: Order Comment: Urina ry Catheter Insertion triggered Urinalysis With Culture Reflex order by discern. Performed By: #### 1 2400290 ####[facility] [address] [place] [address] Glucose Test strip (U) [Mass/Vol] Negative Normal Negative [facility] Comment on above: Order Comment: Urina ry Catheter Insertion triggered Urinalysis With Culture Reflex order by discern. Performed By: #### 1 9393182 ####[facility] [address] [place] [address] Hemoglobin Ql (U) Negative Normal Negative [facility] Comment on above: Order Comment: Urina ry Catheter Insertion triggered Urinalysis With Culture Reflex order by discern. Performed By: #### 1 2440587 ####[address] [address] Ketones (U) [Mass/Vol] Negative Normal Negative [facility] Comment on above: Order Comment: Urina ry Catheter Insertion triggered Urinalysis With Culture Reflex order by discern. Performed By: #### 1 1702755 ####[address] [address] Harrison.plasma/Harrison.R BC (Bld) [Mass ratio] 0-3 Normal 0-3 [facility] Comment on above: Order Comment: Urina ry Catheter Insertion triggered Urinalysis With Culture Reflex order by discern. Performed By: #### 1 3483549 ####[address] [address] Nitrite Ql (U) Negative Normal Negative [facility] Comment on above: Order Comment: Urina ry Catheter Insertion triggered Urinalysis With Culture Reflex order by discern. Performed By: #### 1 6414005 ####[address] [address] pH (U) 6.0 [pH] Invalid Interpretation Code 5.0-9.0 [facility] Comment on above: Order Comment: Urina ry Catheter Insertion triggered Urinalysis With Culture Reflex order by discern. Performed By: #### 1 5505497 ####[address] [address] Protein (U) [Mass/Vol] Negative Normal Negative [facility] Comment on above: Order Comment: Urina ry Catheter Insertion triggered Urinalysis With Culture Reflex order by discern. Performed By: #### 1 5431664 ####[address] [address] Specific gravity (U) [Rel density] 1.010 Invalid Interpretation Code 1.005-1.030 [facility] Comment on above: Order Comment: Urina ry Catheter Insertion triggered Urinalysis With Culture Reflex order by discern. Performed By: #### 1 5901131 ####[address] [address] Type of Urine collection method Red Normal [facility] Comment on above: Order Comment: Urina ry Catheter Insertion triggered Urinalysis With Culture Reflex order by discern. Performed By: #### 1 1664085 ####[address] [address] Urobilinogen Qn (U) 0.2 {Lei'U}/dL Normal 0.0-1.0 [facility] Comment on above: Order Comment: Urina ry Catheter Insertion triggered Urinalysis With Culture Reflex order by discern. Performed By: #### 1 0089990 ####[place] [address] WBC Auto Ql (U) Negative Normal Negative [facility] Comment on above: Order Comment: Urina ry Catheter Insertion triggered Urinalysis With Culture Reflex order by discern. Performed By: #### 1 5016449 ####[place] [address]757 WBC casts LM.LPF (Urine sed) [#/Area] 0-3 Normal [facility] Comment on above: Order Comment: Urina ry Catheter Insertion triggered Urinalysis With Culture Reflex order by discern. Performed By: #### 1 8119449 ####[address] [address] WBC LM.HPF (Urine sed) [#/Area] 0-5 Normal 0-5 [facility] Comment on above: Order Comment: Urina ry Catheter Insertion triggered Urinalysis With Culture Reflex order by discern. Performed By: #### 1 0507948 ####[address] [address] URINALYSISOrdered By: Houston Castillo on 11-30-2022 Bacteria LM Ql (Urine sed) Trace /HPF Normal Trace/HPF [facility] UA Auto SS Bilirubin Ql (U) Negative (11/30/22 11:00 AM) Normal Negative [facility] UA Auto SS Clarity (U) Clear (11/30/22 11:00 AM) Normal Clear [facility] UA Auto SS Color (U) Yellow (11/30/22 [...] AM) Normal Negative [facility] UA Auto SS Harrison.plasma/Harrison.R BC (Bld) [Mass ratio] 0-3 /HPF Normal [...] [facility] UA Auto SS Urobilinogen Qn (U) 0.2531188 {Lei'U}/dL Normal 0.0 - 1.0 EU/dL [facility] [...] rate/Area] 69 mL/min/1.73 m2 Normal >=59 [facility] Comment on above: Order Comment: Order added by Discern Expert. 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 Kidney failure is indicated at less than 15 mL/min/1.73m2. Performed By: #### 2 148544, 1262443, 55749612 ####[facility] [address] [place] [address] Auto Diffon 11-29-2022 Basophils/100 WBC (Bld) 0.5 % Normal 0.0-2.[address] [facility] Comment on above: Order Comment: Order Added by Bethany Expert. Performed By: #### 2 757060, 9882678, 6597942, 94568969, 63906779, 6748900, 22286902, 8897668, 93034544, 487093639, 4742672, 5320407 ####[place] [address] [place] [address] Basophils/Leukocytes Auto (Bld) [Pure # fraction] 0.0 E9/L Normal 0.0-0.2 [facility] Comment on above: Order Comment: Order Added by Bethany Expert. Performed By: #### 2 990894, 2593560, 7806137, 44504335, 05633277, 9652438, 30212465, 7924159, 47032509, 557284114, 0577152, 9486133 ####[facility] [address] [place] [address] Eosinophils/100 WBC (Bld) 8.4 % High 0.0-8.0 [facility] Comment on above: Order Comment: Order Added by Bethany Expert. Performed By: #### 2 683181, 9576335, 7466727, 03696722, 07874324, 5691051, 98077977, 5062865, 88550798, 083053906, 6870742, 3484936 ####[facility] [address] [place] [address] Eosinophils/Leukocytes Auto (Bld) [Pure # fraction] 0.6 E9/L High 0.0-0.5 [facility] Comment on above: Order Comment: Order Added by Discern Expert. Performed By: #### 2 197668, 8635748, 8617400, 56257721, 30159103, 4139187, 26241643, 1452516, 23580496, 930352488, 1745042, 8684863 ####[facility] [address] [place] [address] Lymphocytes/100 WBC (Bld) 15.8 % Normal 14.0-50.0 [facility] Comment on above: Order Comment: Order Added by Discern Expert. Performed By: #### 2 506382, 4082313, 6136017, 99536695, 79180369, 5153259, 46270361, 3822161, 71020898, 292316221, 5406735, 0968420 ####[address] [address] Lymphocytes/Leukocytes Auto (Bld) [Pure # fraction] 1.2 E9/L Normal 1.0-4.0 [facility] Comment on above: Order Comment: Order Added by Discern Expert. Performed By: #### 2 248246, 3703259, 1349907, 49019881, 00370490, 6114435, 72919060, 2654779, 03566139, 980135194, 7497628, 2385549 ####[facility] [address] [place] [address] Monocytes/100 WBC (Bld) 8.4 % Normal 4.0-14.[address] [facility] Comment on above: Order Comment: Order Added by Discern Expert. Performed By: #### 2 008221, 3713842, 8864699, 90267837, 80130670, 7377817, 09239448, 3804445, 16617263, 455305001, 2786043, 8617627 ####[facility] [address] [place] [address] Monocytes/Leukocytes Auto (Bld) [Pure # fraction] 0.6 E9/L Normal 0.2-1.0 [facility] Comment on above: Order Comment: Order Added by Discern Expert. Performed By: #### 2 489789, 0755347, 2670183, 47969016, 53978093, 7630417, 57857906, 4920082, 14644639, 618448330, 8424997, 1943913 ####[facility] [address] [place] [address] Neutrophils/100 WBC (Bld) 66.9 % Normal 36.0-75.0 [facility] Comment on above: Order Comment: Order Added by Discern Expert. Performed By: #### 2 610761, 0236696, 0405222, 57495065, 21696463, 3490783, 38352262, 0809307, 16175390, 216972858, 1996114, 7178585 ####[facility] [address] [place] [address] Neutrophils/Leukocytes Auto (Bld) [Pure # fraction] 5.0 E9/L Normal 2.0-7.5 [facility] Comment on above: Order Comment: Order Added by Discern Expert. Performed By: #### 2 274306, 8937050, 6854602, 09376525, 06710465, 2283881, 95037479, 7295933, 31977313, 202999748, 4021448, 0708239 ####[facility] [address] [place] [address] BMPon 11-29-2022 Anion gap [Moles/Vol] 13 mmol/L Normal 6-16 [facility] Comment on above: Performed By: #### 2 947535, 5570214, 0113480, 05195144, 09648198, 7238298, 76437682, 2746224, 64988642, 781216196, 1404081, 8605353 ####[facility] [address] [place] [address] Calcium [Mass/Vol] 9.1 mg/dL Normal 8.9-11.1 [facility] Comment on above: Performed By: #### 2 942332, 6749375, 5452065, 51264372, 03405808, 9612171, 13661911, 3483974, 50587986, 454364537, 6801992, 8863903 ####[facility] [address] [place] [address] Chloride [Moles/Vol] 102 mmol/L Normal 101-111 [facility] Comment on above: Performed By: #### 2 921575, 0283465, 2516483, 73887979, 00752394, 3136650, 13182959, 4637858, 12503088, 372325742, 2328418, 8131682 ####[facility] [address] [place] [address] CO2 [Moles/Vol] 29 mmol/L Normal 21-31 [facility] Comment on above: Performed By: #### 2 092683, 5336055, 8752383, 88490003, 01603878, 8740294, 50981499, 1679495, 12921220, 206529635, 3045553, 4376466 ####[facility] [address] [place] [address] Creatinine [Mass/Vol] 1.1 mg/dL Normal 0.5-1.3 [facility] Comment on above: Performed By: #### 2 436428, 1716091, 7584448, 15099820, 72318143, 9633484, 67560536, 8842471, 28499823, 569784270, 0068811, 5030496 ####[facility] [address] [place] [address] Glucose [Mass/Vol] 95 mg/dL Normal 55-199 [facility] Comment on above: Result Comment: If t his glucose result represents a fasting glucose, interpretation should refer to the following reference range: 55-99 mg/dL Performed By: #### 2 212058, 1464208, 9038505, 11322592, 07572839, 3847949, 31366272, 9323899, 46886789, 962725693, 5479464, 6257248 ####[facility] [address] [place] [address] Potassium [Moles/Vol] 3.9 mmol/L Normal 3.5-5.3 [facility] Comment on above: Performed By: #### 2 046289, 0343709, 6042582, 55645378, 32714864, 0945232, 90159314, 3582362, 70096344, 146603913, 7185531, 6137890 ####[facility] [address] [place] [address] Sodium [Moles/Vol] 140 mmol/L Normal 135-145 [facility] Comment on above: Performed By: #### 2 628088, 6855720, 5168704, 61960517, 81119707, 6637067, 65258057, 7501139, 30226703, 526594876, 0953256, 8182237 ####[facility] [address] [place] [address] Urea nitrogen [Mass/Vol] 16 mg/dL Normal 5-21 [facility] Comment on above: Performed By: #### 2 108329, 2625012, 8875656, 59988468, 92693862, 6865620, 59750661, 7243278, 47071811, 329875606, 9509062, 0544570 ####[facility] [address] [place] [address] Urea nitrogen/Creatinine [Mass ratio] 14 No Units Normal 10-20 [facility] Comment on above: Performed By: #### 2 311741, 2894118, 4218194, 11756063, 00709109, 6711680, 98334352, 9055045, 65253620, 101852035, 4946904, 1332012 ####[facility] [address] [place] [address] BNPon 11-29-2022 Natriuretic peptide B (Bld) [Mass/Vol] 855 pg/mL High 5-80 [facility] Comment on above: Performed By: #### 2 339554, 8036881, 1850214, 23667828, 24587377, 5980135, 94986495, 0665051, 69595190, 032595838, 9328793, 2060713 ####[facility] [address] [place] [address] CBC w/ Auto Diffon 3 Erythrocyte distribution width (RBC) [Ratio] 14.9 % High 10.9-14.2 [facility] Comment on above: Performed By: #### 2 804095, 4474827, 5013229, 97783695, 87324282, 1946746, 11940351, 6920260, 54218154, 684189795, 3339620, 6515472 ####[address] [place] [address] Hematocrit (Bld) [Volume fraction] 38.1 % Normal 37.7-49.0 [facility] Comment on above: Performed By: #### 2 521845, 7383174, 6205850, 55804457, 77497510, 1677052, 30235280, 6359502, 63445715, 478130805, 4610407, 1306745 ####[address] [place] [address] Hemoglobin (Bld) [Mass/Vol] 12.8 g/dL Low 13.5-17.5 [facility] Comment on above: Performed By: #### 2 321224, 8905164, 1687420, 71149325, 85069536, 1846719, 74135972, 8401759, 17187492, 434738228, 5987113, 0934209 ####[facility] [address] [place] [address] MCH (RBC) [Entitic mass] 29.0 pg Normal 27.0-34.0 [facility] Comment on above: Performed By: #### 2 336345, 2712065, 8981733, 56658857, 26903084, 0089514, 74953637, 7931396, 77460489, 776800203, 3924154, 8299453 ####[facility] [address] [place] [address] MCHC (RBC) [Mass/Vol] 33.7 g/dL Normal 31.4-36.0 [facility] Comment on above: Performed By: #### 2 054452, 3511234, 9087790, 51074054, 75626316, 7127529, 25102963, 7490155, 93078734, 088861665, 0534443, 6284687 ####[facility] [address] [place] [address] MCV (RBC) [Entitic vol] 86.1 fL Normal 80.0-100.[address] [facility] Comment on above: Performed By: #### 2 082079, 1503581, 1851146, 24026213, 14855882, 3787513, 28187179, 0468937, 21386512, 285391074, 9442173, 0744042 ####[address] [address] Platelet mean volume (Bld) [Entitic vol] 10.9 fL High 6.4-10.8 [facility] Comment on above: Performed By: #### 2 686011, 6066831, 4780524, 63961581, 41692356, 2929353, 64053005, 1501663, 11858155, 479609332, 4449613, 3243233 ####[facility] [address] [place] [address] Platelets (Bld) [#/Vol] 189.0 E9/L Normal 150.0-500.0 [facility] Comment on above: Performed By: #### 2 280914, 6560414, 0823048, 19089914, 10420956, 3064630, 48651379, 4638570, 63172137, 975853874, 3168585, 5650532 ####[address] [address] RBC (Bld) [#/Vol] 4.4 E12/L Normal 4.3-5.9 [facility] Comment on above: Performed By: #### 2 661578, 9175070, 2064792, 89761953, 29035657, 4448242, 30847143, 4461413, 89687033, 782755020, 3956427, 7501371 ####[facility] [address] [place] [address] WBC corrected for nucl RBC Auto (Bld) [#/Vol] 7.4 E9/L Normal 4.0-11.0 [facility] Comment on above: Performed By: #### 2 680385, 1679464, 5283621, 19067591, 91086613, 9297797, 05316790, 9606342, 25143627, 245856272, 6329467, 1049808 ####[facility] [address] [place] [address] CHEMISTRYOrdered By: SYSTEM SYSTEM on 11-29-2022 Albumin [...] 37.00 pg/mL Normal 15.90 - 38.40 pg/mL [facility] Remisol CHEMISTRYOrdered By: Natalie Soto on 11-29-2022 Natriuretic peptide B (Bld) [Mass/Vol] 855 pg/mL High 5 - 80 pg/mL [facility] HemeManSS CHEMISTRYOrdered By: Marian peterson DomainUser on 11-29-2022 Calcium.ionized ISE [Mass/Vol] 4.8 mg/dL Invalid Interpretation Code 4.5-5.6mg/d L [facility] SendOutsSS Comment on above: Result Comment: Perf ormed at: [facility] [address] [id number] PhD [facility] CK [Catalytic activity/Vol] 1096 Int._Unit/L Abnormal 14-261 [facility] Comment on above: Result Comment: Crit ical Result verified by repeat analysis\Critical Result S_CK:[id number] Called to MANAS BARBA AT by AMY JOHNSON and read back for confirmation at 11/29/2022 06:40:15 Performed By: #### 2 341113, 4155346, 3444343, 43528031, 44806893, 1413608, 41649190, 1270453, 40828775, 223228975, 4363988, 3236952 ####[facility] [address] [place] [address] CT Abdomen/Pelvis w/ Contras ton 11-29-2022 CT Abdomen/Pelvis w/ Contrast Normal [facility] CT Head or Brain w/o Contras ton 11-29-2022 CT Head or Brain w/o Contrast Normal [facility] CTA Cheston 11-29-2022 CTA Chest Normal [facility] Capillary Glucose POCon Glucose [Mass/Vol] 122 mg/dL High 55-99 [facility] Comment on above: Result Comment: Gareth guerrero RN/ Performed By: #### 2 42200010 ####[facility] [address] [place] [address] Glucose [Mass/Vol] 174 mg/dL High 55-99 [facility] Comment on above: Performed By: #### 2 67207752 ####[facility] [address] [place] [address] Glucose [Mass/Vol] 107 mg/dL High 55-99 [facility] Comment on above: Result Comment: Gareth GARDINER Performed By: #### 2 26633747 ####[facility] [address] [place] [address] Consultation Noteon 11-30-19 Consultation Note Normal [facility] Comment on above: Result Comment: Elec tronically Signed By: New Velazquez MD\Toshabr\Date and Time Signed: 11/29/22 14:44 EDT ED Clinical Summaryon 2022 ED Clinical Summary Normal [facility] ED Note-Physicianon 11-30-19 ED Note-Physician Normal [facility] Comment on above: Result Comment: Elec tronically Signed By: Elkin Hitchcock DObr\Date and Time Signed: 11/28/22 22:32 EDT ED Patient Education Noteon 11-29-2022 ED Patient Education Note Normal [facility] ED Patient Summaryon 023 ED Patient Summary Normal [facility] HEMATOLOGYOrdered By: SYSTEM SYSTEM on 11-29-2022 Basophils/100 [...] 17 mm/h Normal 0 - 19 mm/hr [facility] HemeAutoSS WBC corrected for nucl RBC Auto (Bld) [#/Vol] 7.4 E9/L Normal 4.0 - 11.0 E9/L [facility] HemeAutoSS Hep Func Panelon 11-29-2022 Albumin [Mass/Vol] 3.6 g/dL Normal 3.3-5.0 [facility] Comment on above: Performed By: #### 2 497738, 0238991, 8225403, 73543502, 21295689, 1209742, 49619305, 5363547, 94429828, 734170825, 3543175, 2401767 ####[facility] [address] [place] [address] Albumin/Globulin (S) [Mass conc ratio] 1.2 Normal 1.1-2.2 [facility] Comment on above: Performed By: #### 2 836910, 0030498, 7574932, 55507426, 96982294, 3232589, 85517507, 9993278, 83640838, 790054302, 5809225, 5455774 ####[facility] [address] [place] [address] ALP [Catalytic activity/Vol] 40 Int._Unit/L Normal 21-98 [facility] Comment on above: Performed By: #### 2 973669, 6593902, 2576178, 69308912, 59011369, 6539495, 20231228, 2996438, 13424429, 483545179, 1355373, 0216099 ####[facility] [address] [place] [address] ALT No additional P-5'-P [Catalytic activity/Vol] 17 Int._Unit/L Normal 6-46 [facility] Comment on above: Performed By: #### 2 812233, 6104533, 4476415, 11347615, 75915507, 2795006, 35161830, 8300237, 05032426, 781227563, 4183593, 0883106 ####[facility] [address] [place] [address] AST [Catalytic activity/Vol] 33 Int._Unit/L Normal 5-43 [facility] Comment on above: Performed By: #### 2 794960, 2197931, 7538446, 91389154, 96332208, 3009919, 35997596, 6295036, 13226746, 243381220, 6473835, 6930954 ####[facility] [address] [place] [address] Bilirubin [Mass/Vol] 1.1 mg/dL Normal 0.0-1.1 [facility] Comment on above: Performed By: #### 2 109422, 3038961, 2522040, 07149248, 10798213, 5591081, 52404987, 7639679, 58210095, 690384514, 8961308, 4163985 ####[facility] [address] [place] [address] Bilirubin.direct [Mass/Vol] 0.2 mg/dL Normal 0.1-0.4 [facility] Comment on above: Performed By: #### 2 397249, 2867035, 7464173, 68817811, 18490633, 1317036, 44493326, 4277705, 32013739, 840124645, 9879718, 3126214 ####[facility] [address] [place] [address] Bilirubin.indirect [Mass or moles/Vol] 0.9 mg/dL Normal 0.1-0.9 [facility] Comment on above: Performed By: #### 2 823879, 1154890, 5132411, 12184251, 81962705, 0034299, 78705934, 9589864, 21340113, 279720435, 5831096, 3179305 ####[facility] [address] [place] [address] Globulin (S) [Mass/Vol] 3.1 g/dL Normal 1.4-4.[address] [facility] Comment on above: Performed By: #### 2 558636, 5325940, 1814193, 96850025, 09682277, 4519851, 10221221, 5156960, 25914242, 360826750, 0581610, 4004401 ####[facility] [address] [place] [address] Protein [Mass/Vol] 6.7 g/dL Normal 6.0-7.8 [facility] Comment on above: Performed By: #### 2 681320, 1939322, 9054409, 14635775, 59406653, 3019115, 94037814, 7745750, 45004418, 092317243, 7766659, 0130815 ####[facility] [address] [place] [address] Interdisciplinary Note - Santosh e Manageron 11-29-2022 Interdisciplinary Note - Digital Marketing Associate Normal [facility] Comment on above: Result Comment: Elec tronically Signed By: Jose HAYDEN, Norma\.br\Date and Time Signed: 11/29/22 15:07 EDT Lipid Panelon 11-29-2022 Cholesterol [Mass/Vol] 114 mg/dL Low 120-200 [facility] Comment on above: Performed By: #### 2 960266, 7935806, 4013363, 92159894, 60092512, 7169030, 27321957, 6312196, 16833596, 484128184, 1666912, 1215267 ####[facility] [address] [place] [address] Cholesterol in HDL [Mass/Vol] 50 mg/dL Invalid Interpretation Code [facility] Comment on above: Result Comment: HDL > or equal to 60 mg/dL: Low cardiovascular riskHDL < 40 mg/dL : High cardiovascular risk Performed By: #### 2 099142, 2764846, 9004680, 00862302, 75963795, 4923603, 93001147, 4261383, 72258695, 591526873, 2901422, 5143972 ####[facility] [address] [place] [address] Cholesterol in LDL [Mass/Vol] 43 mg/dL Normal <=129 [facility] Comment on above: Performed By: #### 2 375034, 3574615, 3434739, 48088391, 60981462, 5580587, 27193030, 7660042, 30856206, 308197767, 0750538, 4463637 ####[facility] [address] [place] [address] Cholesterol in VLDL [Mass/Vol] 14 mg/dL Normal 7-40 [facility] Comment on above: Performed By: #### 2 706586, 8267591, 2001884, 91417714, 89112135, 0816996, 89893151, 1488831, 05411322, 557044123, 8143591, 4569357 ####[facility] [address] [place] [address] Triglyceride [Mass/Vol] 72 mg/dL Normal <=149 [facility] Comment on above: Performed By: #### 2 824303, 4746049, 5742829, 98027306, 32198303, 0389722, 37418883, 2540287, 66068329, 688016431, 5764004, 2092491 ####[facility] [address] [place] [address] Monitor Recordon 11-29-2022 Monitor Record [id number]#1. 00CD:127 Normal [facility] Monitor Record [id number]#1. 00CD:127 Normal [facility] Monitor Record [id number]#1. 00CD:127 Normal [facility] Monitor Record [id number]#1. 00CD:127 Normal [facility] Monitor Record [id number] 70 [id number]#1. 00CD:127 Normal [facility] Monitor Record [id number] 70 [id number]#1. 00CD:127 Normal [facility] Monitor Record [id number] 70 [id number]#1. 00CD:127 Normal [facility] Monitor Record [id number]#1. 00CD:127 Normal [facility] Progress Note-Physicianon Progress Note-Physician Normal [facility] Comment on above: Result Comment: Elec tronically Signed By: Alex STEIN, [place].br\Date and Time Signed: 11/29/22 10:54 EDT RAD - Preliminary Cat Scan R eporton 11-29-2022 RAD - Preliminary Cat Scan Report [id number]#1 .00CD:127 Normal [facility] Sed Rate Automatedon 023 Sed Rate Automated 17 mm/hr Normal 0-19 [facility] Comment on above: Performed By: #### 2 041907, 1295117, 5857906, 95352540, 87059429, 5184302, 51323563, 4535128, 35726284, 002861509, 5502718, 5672182 ####[facility] [address] [place] [address] TSH With T4fr Reflexon 11-29 TSH Qn 3.43 m[IU]/L Normal 0.34-5.60 [facility] Comment on above: Performed By: #### 2 300279, 7099329, 8978705, 97209800, 95240682, 0581351, 51555153, 7127522, 22273296, 362980817, 1594668, 2037978 ####[facility] [address] [place] [address] Troponin 6 Hr.on 11-29-2022 Troponin I.cardiac [Mass/Vol] 32.60 pg/mL Normal 15.90-38.40 [facility] Comment on above: Result Comment: The 95% CI (Confidence Interval) PPV (Positive Predictive Value) for myocardial infarction in females is 38 pg/mL, in males 51 pg/mL. The results should be used in conjunction with clinical conditions of myocardial infarction.(salgomed High Sensitivity Troponin I Instructions For Use, [employer], December 2017) Performed By: #### 1 4118830 ####[facility] [address] [place] [address] Troponin 9 Hr.on 11-29-2022 Troponin I.cardiac [Mass/Vol] 37.00 pg/mL Normal 15.90-38.40 [facility] Comment on above: Result Comment: The 95% CI (Confidence Interval) PPV (Positive Predictive Value) for myocardial infarction in females is 38 pg/mL, in males 51 pg/mL. The results should be used in conjunction with clinical conditions of myocardial infarction.(salgomed High Sensitivity Troponin I Instructions For Use, [employer], December 2017) Performed By: #### 1 4116736 ####[facility] [address] [place] [address] Vitamin D 25 Hydroxyon 11-29 25-hydroxyvitamin D3 [Mass/Vol] ng/mL Low 30.0-100.0 [facility] Comment on above: Result Comment: Vit palacios D deficiency has been defined as a level of serum 25-OH vitamin D less than 20 ng/mL (1,2) by the [place] of [employer] and an Endocrine Society practice guideline. The Endocrine Society further defined vitamin D insufficiency as a level between 21 and 29 ng/mL (2). 1. IOM ([place] of [employer]). 2010. Dietary reference intakes for calcium and D. [place]: The National Academies Press. 2. Patricia MF, [place], Reji PETERS, et al. Evaluation, treatment, and prevention of vitamin D deficiency: an Endocrine Society clinical practice guideline. JCEM. 2010; 96 (7):1911-30. Performed By: #### 2 736048, 8573806, 8915566, 56133743, 40562900, 5437849, 36635357, 5029320, 98790007, 311551990, 9648449, 6020144 ####[facility] [address] [place] [address] eGFRon 11-29-2022 GFR/1.73 sq M.predicted among non-blacks MDRD (S/P/Bld) [Vol rate/Area] 69 mL/min/1.73 m2 Normal >=59 [facility] Comment on above: Order Comment: Order added by Discern Expert. 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 Kidney failure is indicated at less than 15 mL/min/1.73m2. Performed By: #### 2 224223, 3207908, 7911901, 37433363, 44803067, 2970219, 91105471, 6202163, 27048180, 103243407, 9354980, 9138759 ####[facility] [address] [place] [address] Auto Diffon 11-28-2022 Basophils/100 WBC (Bld) 0.7 % Normal 0.0-2.0 [facility] Comment on above: Order Comment: Order Added by Discern Expert. Performed By: #### 1 0593465, 6456381, 6975764, 0332176, 02023718 ####[facility] [address] [place] [address] Basophils/Leukocytes Auto (Bld) [Pure # fraction] 0.0 E9/L Normal 0.0-0.2 [facility] Comment on above: Order Comment: Order Added by Discern Expert. Performed By: #### 1 8696585, 8847673, 3135688, 9235290, 14347071 ####[facility] [address] [place] [address] Eosinophils/100 WBC (Bld) 7.4 % Normal 0.0-8.0 [facility] Comment on above: Order Comment: Order Added by Discern Expert. Performed By: #### 1 7362863, 5060031, 6013081, 2683507, 49599580 ####[facility] [address] [place] [address] Eosinophils/Leukocytes Auto (Bld) [Pure # fraction] 0.5 E9/L Normal 0.0-0.5 [facility] Comment on above: Order Comment: Order Added by Discern Expert. Performed By: #### 1 2922354, 0633485, 6273378, 0476720, 10012329 ####[address] [place] [address] Lymphocytes/100 WBC (Bld) 9.3 % Low 14.0-50.0 [facility] Comment on above: Order Comment: Order Added by Discern Expert. Performed By: #### 1 2168756, 5813333, 5057115, 1183572, 47397457 ####[address] [place] [address] Lymphocytes/Leukocytes Auto (Bld) [Pure # fraction] 0.7 E9/L Low 1.0-4.0 [facility] Comment on above: Order Comment: Order Added by Bethany Expert. Performed By: #### 1 2908514, 2224206, 9224109, 2039190, 94703661 ####[address] [address] Monocytes/100 WBC (Bld) 6.6 % Normal 4.0-14.0 [facility] Comment on above: Order Comment: Order Added by Bethany Expert. Performed By: #### 1 9878608, 1332362, 9320223, 0602874, 87821915 ####[address] [address] Monocytes/Leukocytes Auto (Bld) [Pure # fraction] 0.5 E9/L Normal 0.2-1.0 [facility] Comment on above: Order Comment: Order Added by Bethany Expert. Performed By: #### 1 5509389, 6251917, 5151640, 2420581, 64878043 ####[address] [place] [address] Neutrophils/100 WBC (Bld) 76.0 % High 36.0-75.0 [facility] Comment on above: Order Comment: Order Added by Discern Expert. Performed By: #### 1 3635283, 8015336, 7621860, 5803778, 02974734 ####[facility] [address] [place] [address] Neutrophils/Leukocytes Auto (Bld) [Pure # fraction] 5.4 E9/L Normal 2.0-7.5 [facility] Comment on above: Order Comment: Order Added by Discern Expert. Performed By: #### 1 8951996, 3573369, 0169138, 8938865, 08442650 ####[facility] [address] [place] [address] BMPon 11-28-2022 Creatinine [Mass/Vol] 1.0 mg/dL Normal 0.5-1.3 [facility] Comment on above: Performed By: #### 1 9499122, 8316337, 4051381, 7056388, 75274988 ####[facility] [address] [place] [address] Urea nitrogen [Mass/Vol] 16 mg/dL Normal 5-21 [facility] Comment on above: Performed By: #### 1 5833815, 0440168, 4516560, 5539299, 54716208 ####[facility] [address] [place] [address] Urea nitrogen/Creatinine [Mass ratio] 16 No Units Normal 10-20 [facility] Comment on above: Performed By: #### 1 5014229, 3245799, 2604579, 8088907, 01064928 ####[facility] [address] [place] [address] Anion gap [Moles/Vol] 10 mmol/L Normal 6-16 [facility] Comment on above: Performed By: #### 1 7180916, 3003221, 0585635, 1928665, 29481425 ####[facility] [address] [place] [address] Calcium [Mass/Vol] 8.8 mg/dL Low 8.9-11.1 [facility] Comment on above: Performed By: #### 1 0869971, 9314353, 2471749, 6348424, 77289938 ####[facility] [address] [place] [address] Chloride [Moles/Vol] 105 mmol/L Normal 101-111 [facility] Comment on above: Performed By: #### 1 1766322, 0026344, 0082737, 4694033, 37146730 ####[facility] [address] [place] [address] CO2 [Moles/Vol] 28 mmol/L Normal 21-31 [facility] Comment on above: Performed By: #### 1 4965124, 9691251, 9393884, 5454078, 64499962 ####[facility] [address] [place] [address] Glucose [Mass/Vol] 114 mg/dL Normal 55-199 [facility] Comment on above: Result Comment: If t his glucose result represents a fasting glucose, interpretation should refer to the following reference range: 55-99 mg/dL Performed By: #### 1 6910816, 2811506, 1153900, 6005972, 54323522 ####[facility] [address] [place] [address] Potassium [Moles/Vol] 4.1 mmol/L Normal 3.5-5.3 [facility] Comment on above: Performed By: #### 1 9972628, 0070603, 0974777, 9740167, 62092028 ####[facility] [address] [place] [address] Sodium [Moles/Vol] 139 mmol/L Normal 135-145 [facility] Comment on above: Performed By: #### 1 3759336, 2418212, 1588973, 0803972, 78010445 ####[facility] [address] [place] [address] Blood Gas Art, with Lytes, G christal, [place] 11-28-2022 a/A Ratio Art 53.40 % Normal >=0.80 [facility] Comment on above: Performed By: #### 4 57940297 ####[facility] [address] [place] [address] AaDO2 Art 64.9 mmHg High 5.0-15.0 [facility] Comment on above: Performed By: #### 4 44030300 ####[facility] [address] [place] [address] Allens Test Positive Normal [facility] Comment on above: Performed By: #### 4 47847743 ####[facility] [address] [place] [address] Base Excess Arterial 2.9 mmol/L Normal >=2.8 [facility] Comment on above: Performed By: #### 4 04803299 ####[facility] [address] [place] [address] cCa2+ Art 4.88 mg/dL Normal 4.40-5.30 [facility] Comment on above: Performed By: #### 4 88000788 ####[facility] [address] [place] [address] cCl- Art 103.0 mmol/L Normal 101.0-111.0 [facility] Comment on above: Performed By: #### 4 84277645 ####[facility] [address] [place] [address] cGlu Art 98 mg/dL Normal 55-99 [facility] Comment on above: Performed By: #### 4 06217689 ####[facility] [address] [place] [address] cK+ Art 3.6 mmol/L Normal 3.5-5.3 [facility] Comment on above: Performed By: #### 4 92214177 ####[facility] [address] [place] [address] cLac Art .6 mmol/L Normal .5-2.2 [facility] Comment on above: Performed By: #### [id number] ####[facility] [address] [place] [address] fourdrinier tender+ Art 139.0 mmol/L Normal 135.0-145.0 [facility] Comment on above: Performed By: #### [id number] ####[address] [address] Drawn by [employer] Invalid Interpretation Code [facility] Comment on above: Performed By: #### 4 [id number] ####[address] [address] FCOHb Art 1.5 % Normal 1.5-4.9 [facility] Comment on above: Result Comment: Refe rence rangeNonsmoker <1.5%Smoker <5.0%Heavy Smoker <9.0% Performed By: #### 4 [id number] ####[address] [address] FIO2 BG 28 Invalid Interpretation Code [facility] Comment on above: Performed By: #### 4 [id number] ####[address] [address] Flow 2 Invalid Interpretation Code [facility] Comment on above: Performed By: #### 4 [id number] ####[address] [address] FMetHb Art 0.3 % Normal 0.0-1.9 [facility] Comment on above: Performed By: #### 4 [id number] ####[address] [address] FO2Hb Art 93.7 % Normal 93.0-100.0 [facility] Comment on above: Performed By: #### 4 [id number] ####[address] [address] HCO3 (Bld) [Moles/Vol] 26.9 mmol/L High 22.0-26.0 [facility] Comment on above: Performed By: #### 4 [id number] ####[address] [address] Hemoglobin (Bld) [Mass/Vol] 11.9 g/dL Low 12.0-17.0 [facility] Comment on above: Performed By: #### 4 [id number] ####[address] [place] [address] Oxygen saturation in Blood 95.4 % Normal 95.0-100.0 [facility] Comment on above: Performed By: #### 4 [id number] ####[address] [address] P CO2 Arterial 47.6 mmHg High 35.0-45.0 [facility] Comment on above: Performed By: #### 4 [id number] ####[address] [address] P O2 Arterial 74.3 mmHg Low 80.0-100.0 [facility] Comment on above: Performed By: #### 4 [id number] ####[address] pH Arterial 7.387 Normal 7.350-7.450 [facility] Comment on above: Performed By: #### 4 [id number] ####[address] [address] Sample Site R Radial Normal [facility] Comment on above: Performed By: #### 4 [id number] ####[address] [address] Sample Type Arterial Draw Normal [facility] Comment on above: Performed By: #### 4 [id number] ####[address] [address] CBC w/ Auto Diffon 3 Erythrocyte distribution width (RBC) [Ratio] 14.8 % High 10.9-14.2 [facility] Comment on above: Performed By: #### 1 5019927, 8901411, 9012002, 2206013, 95924061 ####[address] [place] [address] Hematocrit (Bld) [Volume fraction] 37.3 % Low 37.7-49.0 [facility] Comment on above: Performed By: #### 1 2881493, 7801869, 8048819, 4174993, 46338601 ####[facility] [address] [place] [address] Hemoglobin (Bld) [Mass/Vol] 12.3 g/dL Low 13.5-17.5 [facility] Comment on above: Performed By: #### 1 4028363, 8774126, 5341891, 9058648, 71828427 ####[address] [place] [address] MCH (RBC) [Entitic mass] 28.3 pg Normal 27.0-34.0 [facility] Comment on above: Performed By: #### 1 3259160, 9487696, 0152993, 2152874, 35779104 ####[address] MCHC (RBC) [Mass/Vol] 33.0 g/dL Normal 31.4-36.0 [facility] Comment on above: Performed By: #### 1 7573461, 3397801, 6771447, 6386891, 20445441 ####[address] [address] MCV (RBC) [Entitic vol] 85.9 fL Normal 80.0-100.0 [facility] Comment on above: Performed By: #### 1 9406670, 1257212, 5755014, 2518446, 07483047 ####[facility] [address] [place] [address] Platelet mean volume (Bld) [Entitic vol] 10.4 fL Normal 6.4-10.8 [facility] Comment on above: Performed By: #### 1 6331158, 0548644, 3209531, 7767633, 15304916 ####[address] [address] Platelets (Bld) [#/Vol] 189.0 E9/L Normal 150.0-500.0 [facility] Comment on above: Performed By: #### 1 2172863, 3533783, 0030461, 0994879, 81075281 ####[facility] [address] [place] [address] RBC (Bld) [#/Vol] 4.3 E12/L Normal 4.3-5.9 [facility] Comment on above: Performed By: #### 1 5268633, 5996477, 2596007, 4660317, 98439996 ####[facility] [address] [place] [address] WBC corrected for nucl RBC Auto (Bld) [#/Vol] 7.1 E9/L Normal 4.0-11.0 [facility] Comment on above: Performed By: #### 1 2885395, 8457792, 7579162, 4013279, 48637168 ####[facility] [address] [place] [address] CHEMISTRYOrdered By: Long Play SYSTEM on 11-28-2022 Troponin I.cardiac [Mass/Vol] 32.60 pg/mL Normal 15.90 - 38.40 pg/mL [facility] Remisol Troponin I.cardiac [Mass/Vol] 26.90 pg/mL Normal 15.90 - 38.40 pg/mL [facility] Remisol Consent for Treatmenton Consent for Treatment [id number]#1.0 0CD:127 Normal [facility] ED Note-Physicianon 11-29-19 ED Note-Physician Normal [facility] Comment on above: Result Comment: Elec tronically Signed By: Shane Pan DO\.br\Date and Time Signed: 11/28/22 18:32 EDT FT Blood GasesOrdered By: Sue Orozco on 11-28-2022 a/A Ratio Art 53.40 % Normal >=0.80% [facility] Resp Auto SS AaDO2 Art 64.9 mm[Hg] High 5.0 - 15.0 mmHg [facility] Resp Auto SS Allens Test Positive (7/8/23 6:55 PM) Normal [facility] Resp Auto SS Base Excess Arterial 2.9 mmol/L Normal >=2.8mmol/L [facility] Resp Auto SS cCa2+ Art 4.88 mg/dL Normal 4.40 - 5.30 mg/dL [facility] Resp Auto SS cCl- Art 103.0 mmol/L Normal 101.0 - 111.0 mmol/L [facility] Resp Auto SS cGlu Art 98 mg/dL Normal 55 - 99 mg/dL [facility] Resp Auto SS cK+ Art 3.6 mmol/L Normal 3.5 - 5.3 mmol/L [facility] Resp Auto SS cLac Art 0.6 mmol/L Normal 0.5 - 2.2 mmol/L [facility] Resp Auto SS fourdrinier tender+ Art 139.0 mmol/L Normal 135.0 - 145.0 mmol/L [facility] Resp Auto SS Drawn by nmb Invalid Interpretation Code [facility] Resp Auto SS FCOHb Art 1.5 % Normal 1.5 - 4.9 % [facility] Resp Auto SS FIO2 BG 28 Invalid Interpretation Code [facility] Resp Auto SS Flow 2 Invalid Interpretation Code [facility] Resp Auto SS FMetHb Art 0.3 % Normal 0.0 - 1.9 % [facility] Resp Auto SS FO2Hb Art 93.7 % Normal 93.0 - 100.0 % [facility] Resp Auto SS HCO3 (Bld) [Moles/Vol] 26.9 mmol/L High 22.0 - 26.0 mmol/L [facility] Resp Auto SS Hemoglobin (Bld) [Mass/Vol] 11.9 g/dL Low 12.0 - 17.0 gm/dL [facility] Resp Auto SS P CO2 Arterial 47.6 mm[Hg] High 35.0 - 45.0 mmHg [facility] Resp Auto SS P O2 Arterial 74.3 mm[Hg] Low 80.0 - 100.0 mmHg [facility] Resp Auto SS pH Arterial 7.387 Normal 7.350 - 7.450 [facility] Resp Auto SS Sample Site R Radial (11/28/22 6:55 PM) Normal [facility] Resp Auto SS Sample Type Arterial Draw (11/28/22 6:55 PM) Normal [facility] Resp Auto SS HEMATOLOGYOrdered By: SYSTEM SYSTEM [...] E9/L Normal 150. 0 - 500.0 E9/L [facility] HemeAutoSS RBC (Bld) [#/Vol] 4.3 E12/L Normal 4.3 - 5.9 E12/L [facility] HemeAutoSS WBC corrected for nucl RBC Auto (Bld) [#/Vol] 7.1 E9/L Normal 4.0 - 11.0 E9/L [facility] HemeAutoSS Pre-Arrival Noteon Pre-Arrival Note Normal [facility] Troponin 0 Hr.on 11-28-2022 Troponin I.cardiac [Mass/Vol] 21.80 pg/mL Normal 15.90-38.40 [facility] Comment on above: Result Comment: The 95% CI (Confidence Interval) PPV (Positive Predictive Value) for myocardial infarction in females is 38 pg/mL, in males 51 pg/mL. The results should be used in conjunction with clinical conditions of myocardial infarction.(Access High Sensitivity Troponin I Instructions For Use, [employer], December 2017) Performed By: #### 1 4697510, 1299254, 0860490, 5492529, 20838987 ####[facility] [address] [place] [address] Troponin 3 Hr.on 11-28-2022 Troponin I.cardiac [Mass/Vol] 26.90 pg/mL Normal 15.90-38.40 [facility] Comment on above: Result Comment: The 95% CI (Confidence Interval) PPV (Positive Predictive Value) for myocardial infarction in females is 38 pg/mL, in males 51 pg/mL. The results should be used in conjunction with clinical conditions of myocardial infarction.(Access High Sensitivity Troponin I Instructions For Use, [employer], December 2017) Performed By: #### 1 [id number] ####[facility] [address] [place] [address] UA With Cult Reflexon 2022 Crystals LM Ql (Urine sed) Present Normal [facility] Comment on above: Performed By: #### 1 4521677 ####[facility] [address] [place] [address] Epithelial cells.squamous LM.HPF (Urine sed) [#/Area] 0-2 Normal 0-2 [facility] Comment on above: Performed By: #### 1 2864608 ####[facility] [address] [place] [address] Harrison.plasma/Harrison.R BC (Bld) [Mass ratio] 0-3 Normal 0-3 [facility] Comment on above: Performed By: #### 1 5176891 ####[facility] [address] [place] [address] Mucus Ql (Urine sed) TRACE Normal [facility] Comment on above: Performed By: #### 1 7042801 ####[address] [address] WBC LM.HPF (Urine sed) [#/Area] 0-5 Normal 0-5 [facility] Comment on above: Performed By: #### 1 3002009 ####[address] [address] Bilirubin Ql (U) Negative Normal Negative [facility] Comment on above: Performed By: #### 1 7572089 ####[address] [place] [address] Clarity (U) CLEAR Normal Clear [facility] Comment on above: Performed By: #### 1 8359589 ####[address] [address] Color (U) YELLOW Normal Yellow [facility] Comment on above: Performed By: #### 1 9443647 ####[address] [address] Glucose Test strip (U) [Mass/Vol] Negative Normal Negative [facility] Comment on above: Performed By: #### 1 0593629 ####[address] [address] Hemoglobin Ql (U) Negative Normal Negative [facility] Comment on above: Performed By: #### 1 6273380 ####[address] [address] Ketones (U) [Mass/Vol] Negative Normal Negative [facility] Comment on above: Performed By: #### 1 8951922 ####[facility] [address] [place] [address] Nitrite Ql (U) Negative Normal Negative [facility] Comment on above: Performed By: #### 1 8015693 ####[facility] [address] [place] [address] pH (U) 6.0 [pH] Invalid Interpretation Code 5.0-9.0 [facility] Comment on above: Performed By: #### 1 5385268 ####[facility] [address] [place] [address] Protein (U) [Mass/Vol] 2+ Abnormal Negative [facility] Comment on above: Performed By: #### 1 1165103 ####[address] [address] Specific gravity (U) [Rel density] 1.025 Invalid Interpretation Code 1.005-1.030 [facility] Comment on above: Performed By: #### 1 3400985 ####[facility] [address] [place] [address] Type of Urine collection method Clean Catch Normal [facility] Comment on above: Performed By: #### 1 2525910 ####[facility] [address] [place] [address] Urobilinogen Qn (U) 0.2 {Lei'U}/dL Normal 0.0-1.0 [facility] Comment on above: Performed By: #### 1 2882111 ####[facility] [address] [place] [address] WBC Auto Ql (U) Negative Normal Negative [facility] Comment on above: Performed By: #### 1 3140176 ####[facility] [address] [place] [address] URINALYSISOrdered By: Emily Suero on 11-28-2022 Bilirubin [...] PM) Normal Negative [facility] UA Auto SS Harrison.plasma/Harrison.R BC (Bld) [Mass ratio] 0-3 /HPF Normal [...] [facility] UA Auto SS Urobilinogen Qn (U) 0.8827571 {Lei'U}/dL Normal 0.0 - 1.0 EU/dL [facility] UA Auto SS WBC Auto Ql (U) Negative (11/28/22 5:55 PM) Normal Negative [facility] UA Auto SS WBC LM.HPF (Urine sed) [#/Area] 0-5 /HPF Normal 0-5/HPF [facility] UA Auto SS XR Chest Single Viewon 07-08 -2023 XR Chest Single View Normal [facility] eGFRon 11-28-2022 GFR/1.73 sq M.predicted among non-blacks MDRD (S/P/Bld) [Vol rate/Area] 77 mL/min/1.73 m2 Normal >=59 [facility] Comment on above: Order Comment: Order added by Discern Expert. 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 Kidney failure is indicated at less than 15 mL/min/1.73m2. Performed By: #### 1 5538188, 9954268, 1038466, 6719249, 80261976 ####[facility] [address] [place] [address] CHEMISTRYOrdered By: SYSTEM SYSTEM on 11-26-2022 Albumin [...] Albumin [Mass/Vol] 3.7 g/dL Normal 3.3-5.0 [facility] Comment on above: Performed By: #### 2 761256, 9983791, 03300552, 1477239 ####[facility] [address] [place] [address] Albumin/Globulin (S) [Mass conc ratio] 1.2 Normal 1.1-2.2 [facility] Comment on above: Performed By: #### 2 526245, 3224886, 61938132, 2710217 ####[facility] [address] [place] [address] ALP [Catalytic activity/Vol] 38 Int._Unit/L Normal 21-98 [facility] Comment on above: Performed By: #### 2 741286, 4627445, 41677721, 3370927 ####[facility] [address] [place] [address] ALT No additional P-5'-P [Catalytic activity/Vol] 11 Int._Unit/L Normal 6-46 [facility] Comment on above: Performed By: #### 2 937879, 2706239, 56145549, 6551618 ####[facility] [address] [place] [address] Anion gap [Moles/Vol] 14 mmol/L Normal 6-16 [facility] Comment on above: Performed By: #### 2 905741, 1351361, 07467354, 3162821 ####[facility] [address] [place] [address] AST [Catalytic activity/Vol] 15 Int._Unit/L Normal 5-43 [facility] Comment on above: Performed By: #### 2 122331, 6372581, 35579889, 3101302 ####[facility] [address] [place] [address] Bilirubin [Mass/Vol] 1.0 mg/dL Normal 0.0-1.1 [facility] Comment on above: Performed By: #### 2 200467, 9148561, 78937099, 7504057 ####[facility] [address] [place] [address] Calcium [Mass/Vol] 9.2 mg/dL Normal 8.9-11.1 [facility] Comment on above: Performed By: #### 2 343061, 7729650, 21267878, 4310807 ####[facility] [address] [place] [address] Chloride [Moles/Vol] 107 mmol/L Normal 101-111 [facility] Comment on above: Performed By: #### 2 940500, 2583803, 70537559, 1782693 ####[facility] [address] [place] [address] CO2 [Moles/Vol] 28 mmol/L Normal 21-31 [facility] Comment on above: Performed By: #### 2 626358, 1655042, 46579983, 6405040 ####[facility] [address] [place] [address] Creatinine [Mass/Vol] 0.9 mg/dL Normal 0.5-1.3 [facility] Comment on above: Performed By: #### 2 161244, 4057233, 34941050, 0151245 ####[facility] [address] [place] [address] Globulin (S) [Mass/Vol] 3.2 g/dL Normal 1.4-4.0 [facility] Comment on above: Performed By: #### 2 419272, 5525183, 86532564, 2872654 ####[facility] [address] [place] [address] Glucose [Mass/Vol] 95 mg/dL Normal 55-199 [facility] Comment on above: Result Comment: If t his glucose result represents a fasting glucose, interpretation should refer to the following reference range: 55-99 mg/dL Performed By: #### 2 327214, 1285382, 55000836, 8976687 ####[facility] [address] [place] [address] Potassium [Moles/Vol] 4.2 mmol/L Normal 3.5-5.3 [facility] Comment on above: Performed By: #### 2 954431, 6055101, 76290639, 8771280 ####[facility] [address] [place] [address] Protein [Mass/Vol] 6.9 g/dL Normal 6.0-7.8 [facility] Comment on above: Performed By: #### 2 830071, 5186053, 94956134, 1593439 ####[facility] [address] [place] [address] Sodium [Moles/Vol] 145 mmol/L Normal 135-145 [facility] Comment on above: Performed By: #### 2 537445, 6819969, 89955312, 5309408 ####[facility] [address] [place] [address] Urea nitrogen [Mass/Vol] 18 mg/dL Normal 5-21 [facility] Comment on above: Performed By: #### 2 935742, 8368337, 68016905, 3882211 ####[facility] [address] [place] [address] Urea nitrogen/Creatinine [Mass ratio] 20 No Units Normal 10-20 [facility] Comment on above: Performed By: #### 2 189656, 4196862, 85947684, 2906994 ####[facility] [address] [place] [address] Consent for Treatmenton 0 Consent for Treatment [id number] 3070 [id number]#1.0 0CD:127 Normal [facility] Lipid Panelon 11-26-2022 Cholesterol [Mass/Vol] 112 mg/dL Low 120-200 [facility] Comment on above: Performed By: #### 2 097288, 9961839, 03074196, 4843981 ####[facility] [address] [place] [address] Cholesterol in HDL [Mass/Vol] 49 mg/dL Invalid Interpretation Code [facility] Comment on above: Result Comment: HDL > or equal to 60 mg/dL: Low cardiovascular riskHDL < 40 mg/dL : High cardiovascular risk Performed By: #### 2 987577, 4337937, 98044686, 8702442 ####[facility] [address] [place] [address] Cholesterol in LDL [Mass/Vol] 42 mg/dL Normal <=129 [facility] Comment on above: Performed By: #### 2 621383, 1161237, 68479561, 1078811 ####[facility] [address] [place] [address] Cholesterol in VLDL [Mass/Vol] 14 mg/dL Normal 7-40 [facility] Comment on above: Performed By: #### 2 812572, 4965749, 76357458, 6107840 ####[facility] [address] [place] [address] Triglyceride [Mass/Vol] 69 mg/dL Normal <=[address] [facility] Comment on above: Performed By: #### 2 834952, 2267134, 40361838, 2650038 ####[facility] [address] [place] [address] Physician Orderon 11-26-2022 Physician Order [id number]#1. 00CD:127 Normal [facility] TSHon 11-26-2022 TSH Qn 2.07 m[IU]/L Normal 0.34-5.60 [facility] Comment on above: Performed By: #### 2 522391, 4659097, 16685148, 2852092 ####[facility] [address] [place] [address] eGFRon 11-26-2022 GFR/1.73 sq M.predicted among non-blacks MDRD (S/P/Bld) [Vol rate/Area] 87 mL/min/1.73 m2 Normal >=59 [facility] Comment on above: Order Comment: Order added by Discern Expert. 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 Kidney failure is indicated at less than 15 mL/min/1.73m2. Performed By: #### 2 028352, 5307471, 07390975, 6109220 ####[facility] [address] [place] [address] Discharge Instructionson Discharge Instructions [id number]#1.0 0CD:127 Normal [facility] Transfer Documentson 023 Transfer Documents [id number]#1.0 0CD:127 Normal [facility] Capillary Glucose POCon Glucose [Mass/Vol] 166 mg/dL High 55-99 [facility] Comment on above: Result Comment: Gareth guerrero RN/ Performed By: #### 2 05516420 ####[facility] [address] [place] [address] Glucose [Mass/Vol] 119 mg/dL High 55-99 [facility] Comment on above: Result Comment: Repe at Test Performed By: #### 2 77625424 ####[facility] [address] [place] [address] Discharge Note-Nursingon Discharge Note-Nursing Normal [facility] AegR2gxe 09-28-2022 HbA1c (Bld) [Mass fraction] 6.4 % High <=5.9 [facility] Comment on above: Order Comment: IF UN ABLE TO ADD TO ED LABS Performed By: #### 2 019990, [id number] ####[facility] [address] [place] [address] Inpatient Clinical Summaryon 09-28-2022 Inpatient Clinical Summary Normal [facility] Inpatient Patient Summaryon 09-28-2022 Inpatient Patient Summary Normal [facility] Inpatient Patient Summary Normal [facility] Interdisciplinary Note - Santosh e Manageron 09-28-2022 Interdisciplinary Note - Digital Marketing Associate [facility] Comment on above: Result Comment: Elec tronically Signed By: Jose HAYDEN, Norma\.br\Date and Time Signed: 09/28/22 15:54 EDT Monitor Recordon 09-28-2022 Monitor Record [id number]#1. 00CD:127 Normal [facility] Capillary Glucose POCon Glucose [Mass/Vol] 192 mg/dL High 55-99 [facility] Comment on above: Result Comment: Gareth GARDINER Performed By: #### 2 67959535 ####[facility] [address] [place] [address] Glucose [Mass/Vol] 130 mg/dL High 55-99 [facility] Comment on above: Result Comment: No C overage Given Performed By: #### 2 40058182 ####[address] [address] Glucose [Mass/Vol] 202 mg/dL High 55-99 [facility] Comment on above: Result Comment: Gareth GARDINER Performed By: #### 2 54562446 ####[address] [place] [address] Glucose [Mass/Vol] 89 mg/dL Normal 55-99 [facility] Comment on above: Result Comment: Gareth GARDINER Performed By: #### 2 10908390 ####[address] [address] Insurance Correspondence Off ice09-27-2022 Insurance Correspondence Office [id number]#1. 00CD:127 [facility] Interdisciplinary Note - Santosh e Manageron 09-27-2022 Interdisciplinary Note - Digital Marketing Associate [facility] Comment on above: Result Comment: Elec tronically Signed By: Natalie Grant.candice\Date and Time Signed: 09/27/22 14:56 EDT Interdisciplinary Note - PTo n 09-27-2022 Interdisciplinary Note - PT Pt is safe and indep w/bed mobility, transfers and gait w/FWW. Pt uses FWW at home; he is at his baseline. NO PT needs at this time. No needs anticipated upon d/c home. AM-PAC [facility] Lyteson 09-27-2022 Anion gap [Moles/Vol] 9 mmol/L Normal 6-16 [facility] Comment on above: Performed By: #### 2 094362, 058636673 ####[address] [place] [address] Chloride [Moles/Vol] 105 mmol/L Normal 101-111 [facility] Comment on above: Performed By: #### 2 026672, 775704732 ####[facility] [address] [place] [address] CO2 [Moles/Vol] 26 mmol/L Normal 21-31 [facility] Comment on above: Performed By: #### 2 822268, 876116976 ####[facility] [address] [place] [address] Potassium [Moles/Vol] 4.2 mmol/L Normal 3.5-5.3 [facility] Comment on above: Performed By: #### 2 876973, 520331253 ####[facility] [address] [place] [address] Sodium [Moles/Vol] 136 mmol/L Normal 135-145 [facility] Comment on above: Performed By: #### 2 769860, 406270558 ####[facility] [address] [place] [address] Monitor Recordon 09-27-2022 Monitor Record [id number]#1. 00CD:127 Normal [facility] Monitor Record [id number]#1. 00CD:127 Normal [facility] Progress Note-Nurseon 2022 Progress Note-Nurse Normal [facility] Progress Note-Physicianon Progress Note-Physician Normal [facility] Comment on above: Result Comment: Elec tronically Signed By: Adeline COLEMAN\.br\Date and Time Signed: 09/27/22 15:34 EDT\.br\Electronically Co-Signed By: Adeline COLEMAN\.br\Date and Time Co-Signed: 09/27/22 15:37 EDT\.br\Electronically Co-Signed By: Rei POTTS, Ganseh Meng.br\Date and Time Co-Signed: 09/27/22 18:58 EDT Auto Diffon 09-26-2022 Basophils/100 WBC (Bld) 0.5 % Normal 0.0-2.[address] [facility] Comment on above: Order Comment: Order Added by Discern Expert. Performed By: #### 1 4841002, 4886692, 3583019, 7318022 ####[address] [place] [address] Basophils/Leukocytes Auto (Bld) [Pure # fraction] 0.0 E9/L Normal 0.0-0.2 [facility] Comment on above: Order Comment: Order Added by Discern Expert. Performed By: #### 1 2091172, 5597149, 3697889, 2188352 ####[address] [address] Eosinophils/100 WBC (Bld) 3.3 % Normal 0.0-8.0 [facility] Comment on above: Order Comment: Order Added by Discern Expert. Performed By: #### 1 4105483, 3927680, 1498236, 8943777 ####[address] [place] [address] Eosinophils/Leukocytes Auto (Bld) [Pure # fraction] 0.3 E9/L Normal 0.0-0.5 [facility] Comment on above: Order Comment: Order Added by Discern Expert. Performed By: #### 1 0392900, 2482680, 9133903, 6161167 ####[address] [place] [address] Lymphocytes/100 WBC (Bld) 9.5 % Low 14.0-50.0 [facility] Comment on above: Order Comment: Order Added by Discern Expert. Performed By: #### 1 4675744, 5661314, 1866896, 7963420 ####[facility] [address] [place] [address] Lymphocytes/Leukocytes Auto (Bld) [Pure # fraction] 0.8 E9/L Low 1.0-4.0 [facility] Comment on above: Order Comment: Order Added by Discern Expert. Performed By: #### 1 7999287, 9624950, 3126816, 4431296 ####[facility] [address] [place] [address] Monocytes/100 WBC (Bld) 7.2 % Normal 4.0-14.0 [facility] Comment on above: Order Comment: Order Added by Discern Expert. Performed By: #### 1 5595383, 7770280, 3933892, 3386982 ####[facility] [address] [place] [address] Monocytes/Leukocytes Auto (Bld) [Pure # fraction] 0.6 E9/L Normal 0.2-1.0 [facility] Comment on above: Order Comment: Order Added by Bethany Expert. Performed By: #### 1 2413442, 4412427, 3321897, 1244146 ####[address] [place] [address] Neutrophils/100 WBC (Bld) 79.5 % High 36.0-75.0 [facility] Comment on above: Order Comment: Order Added by Bethany Expert. Performed By: #### 1 0256612, 8101958, 4170839, 8961241 ####[facility] [address] [place] [address] Neutrophils/Leukocytes Auto (Bld) [Pure # fraction] 6.7 E9/L Normal 2.0-7.5 [facility] Comment on above: Order Comment: Order Added by Bethany Expert. Performed By: #### 1 2241836, 5925757, 9323671, 5683354 ####[facility] [address] [place] [address] BMPon 09-26-2022 Creatinine [Mass/Vol] 1.0 mg/dL Normal 0.5-1.3 [facility] Comment on above: Performed By: #### 1 5116521, 0174293, 2291000, 3423365 ####[facility] [address] [place] [address] Urea nitrogen [Mass/Vol] 25 mg/dL High 5-21 [facility] Comment on above: Performed By: #### 1 [id number], [id number], [id number], [id number] ####[facility] [address] [place] [address] Urea nitrogen/Creatinine [Mass ratio] 25 No Units High 10-20 [facility] Comment on above: Performed By: #### 1 [id number], [id number], 8316769, [id number] ####[facility] [address] [place] [address] Anion gap [Moles/Vol] 10 mmol/L Normal 6-16 [facility] Comment on above: Performed By: #### 1 [id number], 2687545, 7922109, 2707869 ####[facility] [address] [place] [address] Calcium [Mass/Vol] 8.9 mg/dL Normal 8.9-11.1 [facility] Comment on above: Performed By: #### 1 [id number], 7871709, 2267907, 2963009 ####[facility] [address] [place] [address] Chloride [Moles/Vol] 101 mmol/L Normal 101-111 [facility] Comment on above: Performed By: #### 1 [id number], 3690596, 4150842, 9351217 ####[facility] [address] [place] [address] CO2 [Moles/Vol] 26 mmol/L Normal 21-31 [facility] Comment on above: Performed By: #### 1 9422483, 1399936, 7017139, 9349517 ####[facility] [address] [facility] [place] [address] Glucose [Mass/Vol] 112 mg/dL Normal 55-199 [facility] Comment on above: Result Comment: If t his glucose result represents a fasting glucose, interpretation should refer to the following reference range: 55-99 mg/dL Performed By: #### 1 [id number], 4755259, 3280462, 9464705 ####[facility] [address] [place] [address] Potassium [Moles/Vol] 4.1 mmol/L Normal 3.5-5.3 [facility] Comment on above: Performed By: #### 1 [id number], 6328254, 9854505, 1601779 ####[facility] [address] [place] [address] Sodium [Moles/Vol] 133 mmol/L Low 135-145 [facility] Comment on above: Performed By: #### 1 7239926, 3468383, 4810426, 4495609 ####[facility] [address] [place] [address] CBC w/ Auto Diffon 3 Erythrocyte distribution width (RBC) [Ratio] 14.6 % High 10.9-14.2 [facility] Comment on above: Performed By: #### 1 4945906, 7922572, 1562887, 5387602 ####[facility] [address] [place] [address] Hematocrit (Bld) [Volume fraction] 37.6 % Low 37.7-49.0 [facility] Comment on above: Performed By: #### 1 5163394, 6833136, 9385186, 5299636 ####[facility] [address] [place] [address] Hemoglobin (Bld) [Mass/Vol] 12.5 g/dL Low 13.5-17.5 [facility] Comment on above: Performed By: #### 1 0130206, 9113255, 6484536, 5704384 ####[facility] [address] [place] [address] MCH (RBC) [Entitic mass] 28.5 pg Normal 27.0-34.0 [facility] Comment on above: Performed By: #### 1 7394218, 1473284, 0514866, 9526037 ####[facility] [address] [place] [address] MCHC (RBC) [Mass/Vol] 33.2 g/dL Normal 31.4-36.0 [facility] Comment on above: Performed By: #### 1 8102125, 0434104, 6580794, 4724813 ####[facility] [address] [place] [address] MCV (RBC) [Entitic vol] 85.8 fL Normal 80.0-100.[address] [facility] Comment on above: Performed By: #### 1 0952951, 4700306, 8045299, 9833544 ####[facility] [address] [place] [address] Platelet mean volume (Bld) [Entitic vol] 10.3 fL Normal 6.4-10.8 [facility] Comment on above: Performed By: #### 1 0738541, 1638034, 6109252, 6408238 ####[address] [address] Platelets (Bld) [#/Vol] 164.0 E9/L Normal 150.0-500.0 [facility] Comment on above: Performed By: #### 1 4269413, 7930582, 1187959, 5638583 ####[address] [address] RBC (Bld) [#/Vol] 4.4 E12/L Normal 4.3-5.9 [facility] Comment on above: Performed By: #### 1 4362327, 9417341, 7380464, 5900082 ####[address] [address] WBC corrected for nucl RBC Auto (Bld) [#/Vol] 8.4 E9/L Normal 4.0-11.0 [facility] Comment on above: Performed By: #### 1 2609043, 8785436, 4977055, 8779851 ####[facility] [address] [place] [address] Capillary Glucose POCon 05-0 Glucose [Mass/Vol] 161 mg/dL High 55-99 [facility] Comment on above: Result Comment: Gareth guerrero RN/MD Performed By: #### 2 [id number] ####[facility] [address] [place] [address] Consent for Treatmenton Consent for Treatment [phone] [id number] Normal [facility] ED Clinical Summaryon 2022 ED Clinical Summary Normal [facility] ED Note-Physicianon 09-27-19 ED Note-Physician Normal [facility] Comment on above: Result Comment: Elec tronically Signed By: Shane Pan DO\.br\Date and Time Signed: 09/26/22 16:06 EDT ED Patient Education Noteon 09-26-2022 ED Patient Education Note Normal [facility] ED Patient Summaryon 023 ED Patient Summary Normal [facility] EMS Documentationon 09-27-19 EMS Documentation Normal [facility] EMS Documentation Normal [facility] Pre-Arrival Noteon Pre-Arrival Note Normal [facility] UA With Cult Reflexon 2022 Bilirubin Ql (U) Negative Normal Negative [facility] Comment on above: Order Comment: can s traight cath if needed. Performed By: #### 1 [id number] ####[facility] [address] [place] [address] Clarity (U) CLEAR Normal Clear [facility] Comment on above: Order Comment: can s traight cath if needed. Performed By: #### 1 [id number] ####[facility] [address] [place] [address] Color (U) YELLOW Normal Yellow [facility] Comment on above: Order Comment: can s traight cath if needed. Performed By: #### 1 0485070 ####[facility] [address] [place] [address] Epithelial cells.squamous LM.HPF (Urine sed) [#/Area] 0-2 Normal 0-2 [facility] Comment on above: Order Comment: can s traight cath if needed. Performed By: #### 1 0801889 ####[facility] [address] [place] [address] Glucose Test strip (U) [Mass/Vol] Negative Normal Negative [facility] Comment on above: Order Comment: can s traight cath if needed. Performed By: #### 1 6488693 ####[facility] [address] [place] [address] Hemoglobin Ql (U) Negative Normal Negative [facility] Comment on above: Order Comment: can s traight cath if needed. Performed By: #### 1 [id number] ####[address] [address] Ketones (U) [Mass/Vol] Negative Normal Negative [facility] Comment on above: Order Comment: can s traight cath if needed. Performed By: #### 1 7994796 ####[address] [address] Harrison.plasma/Harrison.R BC (Bld) [Mass ratio] 0-3 Normal 0-3 [facility] Comment on above: Order Comment: can s traight cath if needed. Performed By: #### 1 3062754 ####[address] [address] Nitrite Ql (U) Negative Normal Negative [facility] Comment on above: Order Comment: can s traight cath if needed. Performed By: #### 1 7735610 ####[address] [address] pH (U) 5.5 [pH] Invalid Interpretation Code 5.0-9.0 [facility] Comment on above: Order Comment: can s traight cath if needed. Performed By: #### 1 [id number] ####[place] [place] [address] Protein (U) [Mass/Vol] Negative Normal Negative [facility] Comment on above: Order Comment: can s traight cath if needed. Performed By: #### 1 [id number] ####[facility] [address] [place] [address] Specific gravity (U) [Rel density] 1.025 Invalid Interpretation Code 1.005-1.030 [facility] Comment on above: Order Comment: can s traight cath if needed. Performed By: #### 1 3539875 ####[address] [address] Type of Urine collection method Clean Catch Normal [facility] Comment on above: Order Comment: can s traight cath if needed. Performed By: #### 1 [id number] ####[address] [address] Urobilinogen Qn (U) 1.0 {Lei'U}/dL Normal 0.0-1.0 [facility] Comment on above: Order Comment: can s traight cath if needed. Performed By: #### 1 [id number] ####[place] [address] WBC Auto Ql (U) Negative Normal Negative [facility] Comment on above: Order Comment: can s traight cath if needed. Performed By: #### 1 5632019 ####[place] [address] WBC LM.HPF (Urine sed) [#/Area] 0-5 Normal 0-5 [facility] Comment on above: Order Comment: can s traight cath if needed. Performed By: #### 1 6867552 ####[address] [address] XR Chest Single Viewon 09-26 XR Chest Single View Normal [facility] eGFRon 09-26-2022 GFR/1.73 sq M.predicted among non-blacks MDRD (S/P/Bld) [Vol rate/Area] 77 mL/min/1.73 m2 Normal >=59 [facility] Comment on above: Order Comment: Order added by Discern Expert. 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 Kidney failure is indicated at less than 15 mL/min/1.73m2. Performed By: #### 1 [id number], 8914638, 5940315, 7176501 ####[facility] [address] [place] [address] Q - CULTURE,URINE,ROUTINEon 06-23-2021 CULTURE, URINE, ROUTINE SEE NOTE Normal N [facility] Comment on above: Order Comment: [facility] Testing performed at: [facility], [address] [place] [address], [address] [place] [address], [id number], Glass Glazier: Archie Sinha MD [facility] Collection Date/Time: [id number] [facility] Results Received Date/Time: [facility] Reported Date/Time: Result Comment: CULT URE, URINE, ROUTINE Micro Number: [id number] Test Status: Final Specimen Source: Urine Specimen Quality: Adequate Result: Mixed genital alvin isolated. These superficial bacteria are not indicative of a urinary tract infection. No further organism identification is warranted on this specimen. If clinically indicated, recollect clean-catch, mid-stream urine and transfer immediately to Urine Culture Transport Tube. Performed By: #### 6 304R #### [facility] Default [address] [place] [address] Q - CULTURE,URINE,ROUTINEon 05-05-2021 CULTURE, URINE, ROUTINE SEE NOTE Normal N [facility] Comment on above: Order Comment: [facility] performed at: [facility], [address] [place] [address], [address] [place] [address], [id number], Glass Glazier: Archie Sinha MD [facility] Collection Date/Time: [id number] [facility] Results Received Date/Time: [id number] [facility] Reported Date/Time: [id number] Result Comment: CULT URE, URINE, ROUTINE Micro Number: [id number] Test Status: Final Specimen Source: Urine Specimen Quality: Adequate Result: Growth of mixed alvin was isolated, suggesting probable contamination. No further testing will be performed. If clinically indicated, recollection using a method to minimize contamination, with prompt transfer to Urine Culture Transport Tube, is recommended. Performed By: #### 6 304R #### [facility] Default [address] [place] [address] Vital Signs Date Time Vital Sign Value Performing Clinician Facility 01-24-2023 10:00-0400 Hourly Rounding Mbanefo OJUKWU [facility] 01-24-2023 10:00-0400 Promise to Return Mbanefo OJUKWU [facility] 01-24-2023 09:00-0400 Hourly Rounding Mbanefo O[facility]WU [facility] 01-24-2023 09:00-0400 Promise to Return Mbanefo OJUKWU [facility] 01-24-2023 08:29-0400 Diastolic blood pressure 73 mm[Hg] Mbanefo [facility] 01-24-2023 08:29-0400 Systolic blood pressure 157 mm[Hg] Mbanefo [facility] 01-24-2023 08:27-0400 Blood Pressure Location Mbanefo O[facility] 01-24-2023 08:27-0400 Body temperature 97.7 [degF] Mbanefo [facility] 01-24-2023 08:27-0400 Diastolic blood pressure 73 mm[Hg] Mbanefo [facility] 01-24-2023 08:27-0400 Heart rate 82 /min Mbanefo [facility] 01-24-2023 08:27-0400 Respiratory rate 16 /min Mbanefo [facility] 01-24-2023 08:27-0400 Systolic blood pressure 157 mm[Hg] Mbanefo [facility] 01-24-2023 08:00-0400 Hourly Rounding Mbanefo [facility] 01-24-2023 08:00-0400 Promise to Return Mbanefo [facility] 01-24-2023 00:05-0400 Blood Pressure Location Mbanefo [facility] 01-24-2023 00:05-0400 Body temperature 97.7 [degF] [facility]efo [facility] 01-24-2023 00:05-0400 Diastolic blood pressure 76 mm[Hg] Mbanefo [facility] 01-24-2023 00:05-0400 Heart rate 83 /min Mbanefo [facility] 01-24-2023 00:05-0400 Mean blood pressure 99 mm[Hg] M[facility]efo [facility] 01-24-2023 00:05-0400 SaO2% (BldA) [Mass fraction] 97 % [facility]efo [facility] 01-24-2023 00:05-0400 Systolic blood pressure 144 mm[Hg] Mbanefo [facility] 01-23-2023 19:36-0400 Heart rate 81 /min Mbanefo [facility] 01-23-2023 19:36-0400 SaO2% (BldA) [Mass fraction] 96 % [facility]efo [facility] 01-23-2023 19:36-0400 Body temperature 97.34 [degF] [facility] 01-23-2023 19:34-0400 Mean blood pressure 83 mm[Hg] M[facility]efo [facility] 01-23-2023 13:00-0400 Body temperature 98.06 [degF] M[facility]efo [facility] 01-23-2023 06:55-0400 Blood Pressure Location Mbanefo [facility] 01-23-2023 06:55-0400 Mean blood pressure 89 mm[Hg] Mbanefo [facility] 01-23-2023 06:55-0400 Respiratory rate 16 /min Mbanefo [facility] 01-23-2023 06:55-0400 SaO2% (BldA) [Mass fraction] 93 % Mbanefo [facility] 01-22-2023 23:00-0400 Body temperature 97.88 [degF] M[facility]efo [facility] 01-22-2023 23:00-0400 Mean blood pressure 82 mm[Hg] Mbanefo [facility] 01-22-2023 23:00-0400 Respiratory rate 18 /min Mbanefo [facility] 01-22-2023 18:37-0400 Body temperature 97.52 [degF] M[facility]efo [facility] 01-22-2023 18:36-0400 Mean blood pressure 81 mm[Hg] Mbanefo [facility] 01-22-2023 16:09-0400 Mean blood pressure 81 mm[Hg] Mbanefo [facility] 01-22-2023 16:07-0400 Body temperature 97.52 [degF] Mbanefo [facility] 01-22-2023 04:50-0400 Heart rate 77 /min Mbanefo [facility] 01-21-2023 21:09-0400 Heart rate 85 /min Mbanefo [facility] 01-21-2023 15:11-0400 Heart rate 78 /min Mbanefo [facility] 12-20-2022 09:37-0400 Hourly Rounding Maycolyasmine ARRIOLASLIN [facility] 12-20-2022 09:37-0400 Promise to Return Maycol TSERING [facility] 12-20-2022 09:06-0400 Heart rate 65 /min Maycol TSERING [facility] 12-20-2022 09:06-0400 Respiratory rate 20 /min Maycol TSERING [facility] 12-20-2022 09:06-0400 SaO2% (BldA) [Mass fraction] 92 % Maycol TSERING [facility] 12-20-2022 08:56-0400 Heart rate 61 /min Maycol TSERING [facility] 12-20-2022 08:56-0400 Respiratory rate 20 /min Maycol TSERING [facility] 12-20-2022 08:56-0400 SaO2% (BldA) [Mass fraction] 92 % Maycol TSERING [facility] 12-20-2022 08:51-0400 Hourly Rounding Maycol TSERING [facility] 12-20-2022 08:51-0400 Promise to Return Maycol TSERING [facility] 12-20-2022 08:50-0400 Hourly Rounding Maycol TSERING [facility] 12-20-2022 08:31-0400 Promise to Return Maycol TSERING [facility] 12-20-2022 07:29-0400 Heart rate 60 /min Maycol TSERING [facility] 12-20-2022 07:29-0400 SaO2% (BldA) [Mass fraction] 93 % Maycol TSERING [facility] 12-20-2022 07:28-0400 Body temperature 98.06 [degF] Maycol TSERING [facility] 12-20-2022 07:28-0400 Diastolic blood pressure 69 mm[Hg] Maycol TSERING [facility] 12-20-2022 07:28-0400 Mean blood pressure 94 mm[Hg] Maycol TSERING [facility] 12-20-2022 07:28-0400 Systolic blood pressure 143 mm[Hg] Maycol TSERING [facility] 12-20-2022 03:25-0400 Respiratory rate 16 /min Maycol TSERING [facility] 12-20-2022 00:15-0400 Body temperature 97.7 [degF] Maycol TSERING [facility] 12-20-2022 00:15-0400 Diastolic blood pressure 56 mm[Hg] Maycol TSERING [facility] 12-20-2022 00:15-0400 Systolic blood pressure 135 mm[Hg] Maycol TSERING [facility] 12-19-2022 19:28-0400 Body temperature 98.42 [degF] Maycol TSERING [facility] 12-19-2022 19:27-0400 Diastolic blood pressure 69 mm[Hg] Maycol TSERING [facility] 12-19-2022 19:27-0400 Mean blood pressure 90 mm[Hg] Maycol TSERING [facility] 12-19-2022 19:27-0400 Systolic blood pressure 134 mm[Hg] Maycol TSERING [facility] 12-19-2022 16:26-0400 gluc 111 mg/dL Maycol TSERING [facility] 12-19-2022 16:06-0400 Mean blood pressure 95 mm[Hg] Maycol TSERING [facility] 12-19-2022 16:00-0400 Body temperature 98.06 [degF] Maycol TSERING [facility] 12-19-2022 11:58-0400 gluc 201 mg/dL Maycol TSERING [facility] 12-19-2022 08:18-0400 gluc 93 mg/dL Maycol TSERING [facility] 12-19-2022 08:00-0400 Body temperature 98.6 [degF] Maycol TSERING [facility] 12-18-2022 05:46-0400 Blood Pressure Location Maycol TSERING [facility] 12-18-2022 05:46-0400 Heart rate 67 /min Maycol TSERING [facility] 12-18-2022 05:00-0400 Body temperature 98.42 [degF] Maycol TSERING [facility] 12-18-2022 05:00-0400 Mean blood pressure 78 mm[Hg] Maycol TSERING [facility] 12-18-2022 05:00-0400 Respiratory rate 20 /min Maycol TSERING [facility] 12-18-2022 04:00-0400 Mean blood pressure 77 mm[Hg] Maycol TSERING [facility] 12-18-2022 04:00-0400 Respiratory rate 21 /min Maycol TSERING [facility] 12-18-2022 03:00-0400 Mean blood pressure 75 mm[Hg] Maycol TSERING [facility] 12-18-2022 03:00-0400 Respiratory rate 22 /min Maycol TSERING [facility] 12-18-2022 00:09-0400 Heart rate 85 /min Maycol TSERING [facility] 12-17-2022 23:54-0400 Heart rate 86 /min Maycol TSERING [facility] 12-02-2022 14:00-0400 SaO2% (BldA) [Mass fraction] 93 % Maycol TSERING [facility] 12-02-2022 13:00-0400 Hourly Rounding Maycol TSERING [facility] 12-02-2022 13:00-0400 Promise to Return Maycol TSERING [facility] 12-02-2022 12:58-0400 Heart rate 85 /min Maycol TSERING [facility] 12-02-2022 12:58-0400 SaO2% (BldA) [Mass fraction] 88 % Maycol TSERING [facility] 12-02-2022 12:58-0400 Body temperature 97.7 [degF] Maycol TSERING [facility] 12-02-2022 12:58-0400 Diastolic blood pressure 75 mm[Hg] Maycol TSERING [facility] 12-02-2022 12:58-0400 Mean blood pressure 102 mm[Hg] Maycol TSERING [facility] 12-02-2022 12:58-0400 Systolic blood pressure 157 mm[Hg] Maycol TSERING [facility] 12-02-2022 12:10-0400 Hourly Rounding Maycol TSERING [facility] 12-02-2022 12:10-0400 Promise to Return Maycol TSERING [facility] 12-02-2022 11:30-0400 Hourly Rounding Maycol TSERING [facility] 12-02-2022 11:30-0400 Promise to Return Maycolyasmine ARRIOLASLIN [facility] 12-02-2022 08:00-0400 Blood Pressure Location Maycolyasmine ARRIOLASLIN [facility] 12-02-2022 08:00-0400 Diastolic blood pressure 79 mm[Hg] Maycol TSERING [facility] 12-02-2022 08:00-0400 gluc 127 mg/dL Maycol TSERING [facility] 12-02-2022 08:00-0400 Heart rate 76 /min Maycol TSERING [facility] 12-02-2022 08:00-0400 Respiratory rate 20 /min Maycol TSERING [facility] 12-02-2022 08:00-0400 Systolic blood pressure 141 mm[Hg] Maycol TSERING [facility] 12-02-2022 07:46-0400 Heart rate 66 /min Maycol TSERING [facility] 12-02-2022 07:46-0400 Respiratory rate 18 /min Maycol TSERING [facility] 12-02-2022 07:40-0400 Respiratory rate 18 /min Maycol TSERING [facility] 12-01-2022 23:32-0400 Body temperature 97.16 [degF] Maycol TSERING [facility] 12-01-2022 23:32-0400 Diastolic blood pressure 77 mm[Hg] Maycol TSERING [facility] 12-01-2022 23:32-0400 Mean blood pressure 101 mm[Hg] Maycol TSERING [facility] 12-01-2022 23:32-0400 Systolic blood pressure 130 mm[Hg] Maycol TSERING [facility] 12-01-2022 20:01-0400 Body temperature 97.16 [degF] Maycol TSERING [facility] 12-01-2022 20:01-0400 Mean blood pressure 101 mm[Hg] Maycol TSERING [facility] 12-01-2022 12:07-0400 Body temperature 97.52 [degF] Maycol TSERING [facility] 12-01-2022 07:30-0400 Body temperature 96.98 [degF] Maycol TSERING [facility] 12-01-2022 06:00-0400 gluc 110 mg/dL Maycol TSERING [facility] 11-30-2022 23:32-0400 FIO2 30 % Maycol TSERING [facility] 11-30-2022 20:04-0400 Mean blood pressure 98 mm[Hg] Maycol TSERING [facility] 11-30-2022 04:38-0400 Mean blood pressure 91 mm[Hg] Maycol TSERING [facility] 11-29-2022 20:16-0400 FIO2 30 % Maycol TSERING [facility] 11-29-2022 19:00-0400 Blood Pressure Location Maycol TSERING [facility] 11-29-2022 08:10-0400 FIO2 30 % Maycol TSERING [facility] 11-29-2022 04:08-0400 gluc 107 mg/dL Maycol CAGLE [facility] 11-29-2022 04:08-0400 Mean blood pressure 80 mm[Hg] Maycol CAGLE [facility] 11-29-2022 00:16-0400 Heart rate 48 /min Maycol CAGLE [facility] 11-28-2022 22:55-0400 Respiratory rate 19 /min Maycol CAGLE [facility] 11-28-2022 21:45-0400 Respiratory rate 18 /min Maycol CAGLE [facility] 11-28-2022 20:45-0400 Respiratory rate 22 /min Maycol CAGLE [facility] 11-28-2022 18:55-0400 SaO2% (BldA) [Mass fraction] 95.4 % Maycol CAGLE [facility] Resp Auto SS 11-28-2022 17:13-0400 Heart rate 59 /min Maycol CAGLE [facility] 09-07-2022 01:10-0400 Diastolic blood pressure 53 mm[Hg] [facility] 09-07-20[facility] 01:10-0400 Heart rate 70 /min [facility] 09-07-2022 01:10-0400 SaO2% (BldA) [Mass fraction] 96 % [facility] 09-07-2022 01:10-0400 Systolic blood pressure 135 mm[Hg] [facility] Encounters Encounter Date Encounter Type Care Provider Facility Start: 01-21-2024 End: 01-21-2024 ambulatory [facility] Start: 01-15-2024 Evaluation and management of inpatient [facility] Start: 01-14-2024 [facility] Start: 01-12-2024 Evaluation and management of inpatient ARIC MIRZA [facility] Start: 01-11-2024 Evaluation and management of inpatient DONNIE [facility] Start: 01-10-2024 Evaluation and management of inpatient DONNIE [facility] Start: 01-10-2024 Evaluation and management of inpatient DONNIE [facility] Start: 01-09-2024 Evaluation and management of inpatient DONNIE [facility] Start: 01-09-2024 End: 01-09-2024 ambulatory [facility] Facility:[facility] Start: 01-09-2024 End: 01-16-2024 Evaluation and management of inpatient YESENIA WHITE [facility] Start: 01-04-2024 End: 01-17-2024 Emergency department patient visit [facility] Start: 02-01-2023 ambulatory Robinruben Garcia acility:[facility] Start: 01-21-2023 End: 01-24-2023 Evaluation and management of inpatient [place] Facility:[facility] Start: 01-21-2023 End: 01-24-2023 Evaluation and management of inpatient Steve [facility] Start: 01-15-2023 End: 01-16-2023 ambulatory Donta SHAISTA Facility:CD:[id number] Start: 01-15-2023 End: 01-15-2023 Off-Site [facility] Start: 12-22-2022 End: 12-23-2022 ambulatory Donta NOONAN Facility:CD:[id number] Start: 12-22-2022 End: 12-22-2022 Off-Site [facility] Start: 12-18-2022 End: 12-20-2022 Evaluation and management of inpatient Maycol A TSERING Facility:[facility] Start: 12-17-2022 End: 12-20-2022 Evaluation and management of inpatient Maycol A TSERING [facility] Start: 12-14-2022 End: 01-16-2023 ambulatory Donta NOONAN Facility:CD:[id number] Start: 12-14-2022 End: 01-16-2023 In-Between Visit [facility] Start: 12-11-2022 ambulatory Donta NOONAN [facility] y: [place] Start: 12-03-2022 End: 12-03-2022 Off-Site [facility] Start: 12-03-2022 End: 12-04-2022 ambulatory Donta NOONAN Facility:[id number] Start: 12-02-2022 End: 01-16-2023 ambulatory Donta ATTICA Facility:[facility] Start: 11-30-2022 ambulatory Facility:[id number] Start: 11-30-2022 ambulatory Facility:[id number] Start: 11-29-2022 ambulatory Facility:1 [id number] Start: 11-29-2022 End: 12-02-2022 Evaluation and management of inpatient Maycol A TSERING Facility:[facility] Start: 11-28-2022 End: 12-02-2022 Evaluation and management of inpatient Maycol A TSERING [facility] Start: 11-26-2022 End: 11-27-2022 ambulatory Bienvenido Barroso Facility:[facility] Start: 11-26-2022 End: 11-26-2022 Patient encounter procedure Bienvenido Barroso [facility] Start: 09-26-2022 End: 09-28-2022 ambulatory Ganesh S Rei Facility:[facility] Start: 2022 End: 2022 ambulatory Et3 [facility] Emergenc y Triage, Treat and Transport Start: 2022 End: 2022 Emergency department patient visit Et3 [facility] Emergency Triage, Treat and Transport [...] Visi t (G0439) Annual Wellness Visit (G0439) [facility] Start: 05-14-2018 Pneumococcal vaccination Pneum ococcal Vaccine(s) (65+ yrs) (2 - PPSV23 if available, else PCV20) [facility] Start: 1994 Shingles (RZV) Vacci ne (1 of 2) Shingles (RZV) Vaccine (1 of 2) [facility] Start: 1962 Hepatitis C screening Hepatitis C An tibody [facility] Start: 1962 Tetanus + diphtheria + acellular pertussis vaccine (product) Tdap Booster [facility] Immunizations Immunization Date Immunization Notes Care Provider Ryder pitt 03-12-2022 SARS-CoV-2 (COVID-19 ) mRNAMUL.ORD![id number] [facility]onta NO[facility]AN [facility] 03-17-2021 Influenza, injectabl e, high-dose seasonal, quadrivalent, 0.7 mL, preservative free (XDC=679) [facility] 07-15-2020 Pfizer (12+ yrs) SARS-COV-2 (COVID-19) vaccine, mRNA, spike protein, LNP, pres. free, 30 mcg/0.3mL dose (IQV=518) [facility] 06-26-2020 Pfizer (12+ yrs) SARS-COV-2 (COVID-19) vaccine, mRNA, spike protein, LNP, pres. free, 30 mcg/0.3mL dose (WBV=855) [facility] 06-23-2019 influenza, high dose seasonal, preservative-free [facility] 05-14-2017 influenza, high dose seasonal, preservative-free [facility] 05-14-2017 pneumococcal conjuga te vaccine, 13 valent [facility] 04-04-2014 influenza, injectabl e, madin cee canine kidney, preservative free [facility] NEGATED: Highlighted row has not occurred!06-15-2014 pneumococcal polysaccharide vaccine, 23 valent Bienvenido Barroso [facility] Comment on above: Result Note: pt had vaccine last year per Payers Date Payer Category Payer Medicaid [id number] 2023 Self-pay 2022 Unknown [id number] 2022 Medicare Shopcaster D Anna Lozabai [id number] 2022-Present [address] [place] [address] Medicare [id number] 2022 Unknown [id number] 1945 Unknown [id number] [id number] 1945 Unknown [id number] 2..840.1.693483.3.579.2.356 1944 Unknown [id number] 2.16.840.1.350781.3.579.2.356 1944 Unknown [id number] 2.16.840.1.539311.3.579.2.727 1944 Unknown [id number] 2.16.840.1.913859.3.579.2.727 1944 Unknown [id number] 2.16.840.1.714730.3.579.2. 1944 Unknown [id number] 2.16.840.1.997791.3.579.2. 1944 Unknown [id number] 2.16.840.1.662437.3.579.2. 1944 Unknown [id number] 2.16.840.1.210341.3.579.2. 1944 Unknown [id number] 2.16.840.1.691505.3.579.2. 1944 Unknown [id number] 2.16.840.1.420926.3.579.2. 1944 Unknown [id number] 2.16.840.1.364808.3.579.2. 1944 Unknown [id number] 2.16.840.1.645361.3.579.2. 1944 Unknown [id number] 2.16.840.1.286953.3.579.2. 1944 Unknown [id number] 2.16.840.1.349209.3.579.2. 1945 Unknown [id number] 2.16.840.1.925848.3.579.2. 1945 Unknown [id number] 2.16.840.1.584122.3.579.2.1286 Social History Date Type Detail Facility Tobacco smoking status NHIS Tobacco smoking consumption unknown [facility] Start: 1945 Sex Assigned At Not [facility] file [facility] Start: 04-24-2021 Tobacco smoking status Ex-smoker (finding) [facility] Sex Assigned At Male [facility] Functional Status Date Assessment Result Facility 01-21-2023 Functional Status No [facility] 01-21-2023 Functional Status [facility] 12-18-2022 Functional Status N/A [facility] 12-17-2022 Functional Status [facility] 11-29-2022 Functional Status N/A [facility] 11-28-2022 Functional Status [facility] Clinical Notes 09-07-2022 to 01-21-2024 Note Date & Type Note Facility 01-21-2024 Note Patient underwent [employer] pacemaker implantation due to third-degree AV [...] follow-up appointment with cardiology in 2 months [facility] 01-16-2024 Note Physical Therapy Physical Therapy Patient Name: Cylde Humphrey Today's Date: 01/16/2024 Admit Date: 01/09/2024 Time: 8:55 AM Attempted PT treatment today however RN reports patient being agitated at this time, will check back later as able. No charges associated with this encounter. [facility] 01-16-2024 Note discharge planning: to [facility] 0841 Insurance Approval Letter received for Patient to discharge to [facility]; Discharge Order in place; notice of insurance approval and discharge order sent to SNF, via [employer] system, with request to confirm they have a bed available for Patient to return to them today (awaiting reply) 1129 communication received from [facility], via [employer] system: Yes please call report to [phone] station 2. Please FAX ut med list to [phone] as I am not in the building today ^bedside RN and [facility] notified of bed available today 1135 Patient resting in bed, property underwriter unable to wake ([phone]) PC to Patient's spouse, to notify of discharge order and bed available and transport arrangements; no answer; vm left with contact information and request for return call 1152 AVS faxed to [facility] [phone] ([phone]) PC to Patient's spouse, to notify of discharge order and bed available and transport arrangements; no answer; second voicemail not left ([phone]) PC to Patient's daughter Amy, to notify of discharge order and transport time; Amy stating Patient's spouse lives at [facility] as well, so would not be answering her phone; property underwriter notified Amy of 1:30p pickup time for transportation to return to [facility] 1206 AVS and transport time sent to [facility] via [employer] system Discharge Transportation Packet placed with Patient's physical charte Transportation scheduled for 1:30p pickup Nurse call report to [facility] [phone] Station 2 ^bedside RN, [facility] notified [facility] 01-16-2024 Note Hospital Medicine Daily Progress Note - 01/16/2024 7:25 AM; Room: [address] [place] [address] Admission: 01/09/2024 1:24 AM; Length of stay: 7 days THE HOSPITALIST TEAM PREFERS TO USE [employer] CHAT FOR COMMUNICATION 7AM-7PM. IF I DO NOT RESPOND WITHIN 15 MINUTES, PLEASE PAGE ME/CALL THROUGH THE INFORMATION SYSTEMS SECURITY ANALYST. FROM 7PM-7AM, PLEASE PAGE [phone](COVR) Code Status: Full Code Barriers to Discharge: None Expected Discharge Date: 01/15 Discharge Destination: retirement facility Overview Patient is seen for evaluation [...] , FREET4 , CORTISOL , FEV1 , KED3JWH , DLCO , RVSP , HDL , LDL Lab Results Component Value Date [id number] 179 (L) 01/13/2024 IRON 37 (L) 01/13/2024 [...] Santiago MD. Discharge Planning Expected Discharge Disposition: [facility] (03) PT Disc (more content not included)... [facility] 01-15-2024 Note Hospital Medicine Discharge Summary Final Discharge Diagnosis: Third degree heart block Admission Diagnosis: Heart block [I45.9] Hospital course: 78yoM with history of dementia, seizure disorder, COPD, hypertension who was admitted to [facility] on 01/08 for complete heart block. Patient initially presented to [facility] for multiple episodes of presyncope and heart rate was noted to be in 30s. Confirmed complete AV disassociation and the patient was transferred to [facility] for EP evaluation. He was initially sent [...] Time Provider Department Center 01/17/2024 1:30 PM [facility] CV CLINIC DEVICE CHECK HVC CARD UT [...] Medications These medications were sent to [facility] - [place], [place] - [address] [place] [address] [place] [address], [facility] [address] divalproex 500 mg EC tablet spironolactone 25 mg tablet Information about where to get these medications is not yet available Ask your nurse or doctor about these medications cyanocobalamin 1,000 mcg tablet doxycycline 100 mg capsule Clyde has No Known Allergies. Disposition: [facility] () Discharge Condition: Stable Code Status: [...] Lab Units 01/15/24 (more content not included)... [facility] 01-14-2024 Note 01/14/24 1300 Post Acute Info Authorization started for SNF () Facility name [facility] When was authorization started? 01/13/24 What time was authorization started? 1038 Reference number for submission ([id number]) Determination Approved OTM staff notified Sherley Rivers When was authorization received? 01/14/24 What time was authorization received? 1302 When does authorization ? 01/21/24 How are we submitting authorization Website Portal What insurance are we submitting through ([employer]) Approved authorization for [facility], OTM notified. [facility] 01-14-2024 Note Hospital Medicine Daily Progress Note - 01/14/2024 11:18 AM; [facility]: [facility] Admission: 01/09/2024 1:24 AM; Length of stay: 5 days THE HOSPITALIST TEAM PREFERS TO USE [employer] CHAT FOR COMMUNICATION 7AM-7PM. IF I DO NOT RESPOND WITHIN 15 MINUTES, PLEASE PAGE ME/CALL THROUGH THE INFORMATION SYSTEMS SECURITY ANALYST. FROM 7PM-7AM, PLEASE PAGE [phone](COVR) Code Status: Full Code Barriers to Discharge: Precert Expected Discharge Date: 01/13 Discharge Destination: retirement facility Overview Patient is seen for evaluation [...] , FREET4 , CORTISOL , FEV1 , YDY2FSP , DLCO , RVSP , HDL , LDL Lab Results Component Value Date [id number] 179 (L) 01/13/2024 IRON 37 (L) 01/13/2024 TIBC 244 (L) 01/13/2024 Imaging Electrophysiology procedure Narrative: DUAL CHAMBER PACEMAKER IMPLANT PROCEDURE NOTE DATE OF PROCEDURE: 01/10/24 PERFORMING PHYSICIAN: Dr. Reno Welch CONSENT: Patient LOCATION: EP Lab PROCEDURE PERFORMED: 1. Implantation of pacemaker ([employer]) 2. Ultrasound guided venous access INDICATIONS: 1. 3rd degree AV block 2. Junctional bradycardia PROCEDURAL SEDATION: Versed and Fentanyl. Moderate sedation was administered by the sedation nurse under my supervision and noted in the (more content not included)... [facility] 01-14-2024 Note Occupational Therapy Occupational Therapy Treatment Patient Name: Clyde Humphrey : 1945 Today's Date: 01/14/2024 Problem List Patient Active Problem List Diagnosis Heart block Pain: Objective General Visit Information: OT Last Visit OT Received On: 01/14/24 General Subjective: RN reports pt is appropriate for session. On arrival pt SELDOVIA but use of writing communication for pt [...] Nurse aide present. Assessment/Plan OT Assessment OT Assessment/CLEARING INSPECTOR Summary: pt will benefit from continued therapy [...] transfers standing five minutes 01/12/24 02/09/24 -- [facility] 01-13-2024 Note Speech Admitting Counselor ology Speech/Language Pathology Clinical Swallow Assessment Rx: [...] Called and spoke to Sierra RN at [facility] and she reported he always wears dentures and does not having swallowing issues prior to this admission at [facility]. Baseline Assessment Temperature Spikes Noted: Not applicable History of Intubation: No Behavior/Cognition: Alert, Cooperative (very hard of hearing due to not having his hearing aides in hospital) Dentition: Edentulous (per [facility] ECF, pt wears dentures, but they are not at hospital) Patient Positioning: Upright in bed Baseline Vocal Quality: Normal Volitional Swallow: Within Functional Limits Diet Level Prior to exam: Regular diet with thin liquid No family present for exam History of Present Illness Clyde Humphrey is a 78-year-old gentleman with past medical history significant for dementia has been transferred from [facility] due to high degree AV block. The patient is unable to answer questions appropriately due to his dementia so history was only taken by the signout received from [facility]. The patient was noted to have multiple episodes of presyncope over the last few days and today his heart rate was noted to be in 30s upon their initial evaluation. EKG showed a complete A-V dissociation after which thick reached out to [facility] cardiology for possible pacemaker placement. Due to significant bradycardia the patient is being transferred to [facility] ICU for close hemodynamic monitoring and management. [...] Medications: Crushed Recommendations Duration of Treatment: 15 [facility] 01-13-2024 Note 01/13/24 1038 Post Acute Info Authorization started for SNF (03) Facility name [facility] NP [id number] When was authorization started? 01/13/24 What time was authorization started? 1038 Reference number for submission ([id number]) How are we submitting authorization Website Portal What insurance are we submitting through ([employer]) Submitted precert request for [facility], OTM to follow. [facility] 01-13-2024 Note Attempted to call Wi pee Soumya to confirm return to [facility] as well as get consent to start pre-cert with no answer and going to voicemail. Called listed aidan Parks [phone] who answered and stated that Soumya has stage 4 cancer and is also currently at [facility] and also cited that her cognition has declined substantially. Aidan Parks also cited that she is pt's HCPOA. Obtained confirmation of intent to return and also to start the pre-cert to return to [facility]. Requested OTM to start pre-cert and updated AVS. UPDATE 11:05AM- [facility] confirmed that aidan Parks is an alternate HCPOA and also advised it would be better to contact her. [facility] 01-13-2024 Note Hospital Medicine Daily Progress Note - 01/13/2024 8:09 AM; Room: [address] [place] [address] Admission: 01/09/2024 1:24 AM; Length of stay: 4 days THE HOSPITALIST TEAM PREFERS TO USE [employer] CHAT FOR COMMUNICATION 7AM-7PM. IF I DO NOT RESPOND WITHIN 15 MINUTES, PLEASE PAGE ME/CALL THROUGH THE INFORMATION SYSTEMS SECURITY ANALYST. FROM 7PM-7AM, PLEASE PAGE [phone](COVR) Code Status: Full Code Barriers to Discharge: Precert Expected Discharge Date: 01/13 Discharge Destination: retirement facility Overview Patient is seen for evaluation [...] BID heparin (porcine), 5,000 Units, subcutaneous, q8h [facility] metFORMIN XR, 1,000 mg, oral, BID with [...] , FREET4 , CORTISOL , FEV1 , YPW0FQN , DLCO , RVSP , HDL , LDL No results found for: [id number] , IRON , TIBC , C3 , [...] There are intracranial (more content not included)... [facility] 01-12-2024 Note Daughter, felipe Parks via phone concerning pt transfer to [facility] from [facility] and pt status improvements/plan of care. [facility] 01-12-2024 Note ------ Attestation signed by Cody Richardson MD at 01/12/2024 11:36 PM I reviewed the salient portions of the patient history. I have seen and examined the patient during rounds with the resident/fellow. I repeated the guajardo components of the exam. Agree with the noted assessment and plan. Cody Richardson MD [facility] Pulmonary and Critical Care Medicine ------ Pulmonary Progress Note Patient - Clyde Humphrey Age - 78 y.o. - [address] [facility] # - [id number] Date of Admission - 01/09/2024 1:24 AM HPI/Hospital Course Clyde Humphrey is a 78-year-old gentleman with past medical history significant for dementia has been transferred from [facility] due to high degree AV block. The patient is unable to answer questions appropriately due to his dementia so history was only taken by the signout received from [facility]. The patient was noted to have multiple episodes of presyncope over the last few days and today his heart rate was noted to be in 30s upon their initial evaluation. EKG showed a complete A-V dissociation after which thick reached out to [facility] cardiology for possible pacemaker placement. Due to significant bradycardia the patient is being transferred to [facility] ICU for close hemodynamic monitoring and management. [...] patient's raccoon eyes (more content not included)... [facility] 01-12-2024 Note Physical Therapy Physical Therapy Evaluation Patient Name: Clyde Humphrey : 1945 Today's Date: 01/12/2024 Patient is a 78 y/o male presenting from [facility] and OS with heart block. Episodes of [...] Diagnosis Date COPD (chronic obstructive pulmonary disease) ([facility]) Seizure ([facility]) Sleep apnea No past surgical history on [...] time, Follows one step commands with repetition (SELDOVIA makes command following difficult) General Assessment General Assessment Hearing: Significantly SELDOVIA - best communication by writing Home Living Home Living Type of Home: assisted Home Adaptive Equipment: Walker rolling, Wheelchair-power Prior Level of Function Prior Function Level of [place]: Needs assistance with ADLs, Needs assistance with [...] room: Total He (more content not included)... [facility] 01-12-2024 Note Occupational Therapy Occupational Therapy Evaluation Patient Name: Clyde Humphrey : 1945 Today's Date: 01/12/2024 Time In: 1015 Time Out: 1039 Clyde Humphrey is a 78-year-old gentleman with past medical history significant for dementia has been transferred from [facility] due to high degree AV block. PPM 01/10/24 General Subjective: friendly and cooperative but not a reliable historian, he is very SELDOVIA but able to read Patient Active Problem List Diagnosis Heart block Past Medical History: Diagnosis Date COPD (chronic obstructive pulmonary disease) ([facility]) Seizure ([facility]) Sleep apnea No past surgical history on [...] redirect Memory: Decreased short term memory, Decreased care home memory Communication: Intact General Assessment General Assessment Hearing: (very king salmon) Home Living Home Living Type of Home: assisted Home Adaptive Equipment: Wheelchair-power Prior Level of Function Prior Function Level of [place]: Needs assistance with ADLs, Needs assistance with [...] Eating meals?: None (Independent) Total Score OT [facility]: 14 Assessment/Plan OT Assessment OT Impairments: Decreased [...] until discharge & PRN OT Discharge Recommendations: senior care facility placement OT - Discharge Recommendations Placed: [...] LTG - Pat (more content not included)... [facility] 01-12-2024 Note Phoned pt's to discuss DC plan [facility]. [facility] precert to accept pt back under skilled. Await call back, Await PT/OT recommendations. [facility] 01-12-2024 Note Updates sent to [facility] danny [facility] 01-11-2024 Note ------ Attestation signed by Cody Richardson MD at 01/11/2024 9:49 PM I reviewed the salient portions of the patient history. I have seen and examined the patient during rounds with the resident/fellow. I repeated the guajardo components of the exam. Agree with the noted assessment and plan. Cody Richardson MD [facility] Pulmonary and Critical Care Medicine ------ Pulmonary Progress Note Patient - Clyde Humphrey Age - 78 y.o. - [address] [facility] # - [id number] Date of Admission - 01/09/2024 1:24 AM HPI/Hospital Course Clyde Humphrey is a 78-year-old gentleman with past medical history significant for dementia has been transferred from [facility] due to high degree AV block. The patient is unable to answer questions appropriately due to his dementia so history was only taken by the signout received from [facility]. The patient was noted to have multiple episodes of presyncope over the last few days and today his heart rate was noted to be in 30s upon their initial evaluation. EKG showed a complete A-V dissociation after which thick reached out to [facility] cardiology for possible pacemaker placement. Due to significant bradycardia the patient is being transferred to [facility] ICU for close hemodynamic monitoring and management. [...] Intake/Output Summary (Last 24 hours) at 01/11/2024 7433 Last data filed at 01/11/2024 1253 Gross [...] fall? Also requested (more content not included)... [facility] 01-11-2024 Note Problem: Depression Goal: LTG-Alleviate depressed [...] goals for the shift include Stable hemodynamics [facility] 01-11-2024 Note ------ Attestation signed by Guilherme [...] ------ Cardiology Progress Note Subjective Subjective: S/p [employer] DC-PPM. No overnight events. Mentation appears [...] QT Interval 514 QTC CALCULATION(BAZETT) 439 P [place] -25 R-[place] -30 T Wave [place] -28 Impression Sinus tachycardia with complete heart [...] (TTE) complete Result Date: 01/10/2024 1 1 [facility] Heart Station [address] [place] [address] [phone] (fax) Echocardiogram-[facility] Name: CLYDE HUMPHREY Study Date: 01/10/2024 01:43 PM B/P: 107 mmHg/64 mmHg HR: 52 bpm Date of : 1945 Location: [facility] Height: 65 in. Age: 78 year(s) Patient Room: 3235 Weight: 218 lb. Gender: Male Patient Status: InPt BSA: 2.05 m2 Indication: Complete heart block, d (more content not included)... [facility] 01-10-2024 Note ------ Attestation signed by Cody [...] services was 36 minutes. Cody Richardson MD [facility] Pulmonary and Critical Care Medicine ------ Pulmonary Progress Note Patient - Clyde Humphrey Age - 78 [facility] 1945 [id number] Date of Admission - 01/09/2024 1:24 AM HPI/Hospital Course Clyde Humphrey is a 78-year-old gentleman with past medical history significant for dementia has been transferred from [facility] due to high degree AV block. The patient is unable to answer questions appropriately due to his dementia so history was only taken by the signout received from [facility]. The patient was noted to have multiple episodes of presyncope over the last few days and today his heart rate was noted to be in 30s upon their initial evaluation. EKG showed a complete A-V dissociation after which thick reached out to [facility] cardiology for possible pacemaker placement. Due to significant bradycardia the patient is being transferred to [facility] ICU for close hemodynamic monitoring and management. [...] shift. Patchy hypoattenuation (more content not included)... [facility] 01-10-2024 Note Consulted with notif ication that [facility]. Has dementia. No family at bedside. Appears patient may be [facility] message left for spouse, Soumya. Preliminary referral made to [facility] to confirm. [facility] 01-10-2024 Note Problem: Depression Goal: LTG-Alleviate depressed [...] goals for the shift include Stable hemodynamics [facility] 01-10-2024 Note ------ Attestation signed by Guilherme [...] QT Interval 514 QTC CALCULATION(BAZETT) 439 P [place] -25 R-[place] -30 T Wave [place] -28 Impression Sinus tachycardia with complete heart [...] Maintain telemetry Optimize electrolytes Trang Eagle MD Crystal Gazer - PGY5 [facility] 01-09-2024 Note ------ Attestation signed by Donnie Cavazos MD at 01/09/2024 1:28 PM I was present during the critical portion of the procedure and immediately available to assist ------ Arterial line placement PATIENT: Clyde Humphrey DATE: 01/09/2024 PROCEDURE INFORMATION SYSTEMS SECURITY ANALYST: Art Suh MD ATTENDING PHYSICIAN: Donnie Cavazos [...] PGY6 [facility] Pulmonary/Critical Care 01/09/2024 5:45 AM [facility] 01-24-2023 Evaluation + Plan note Extrac gi from: Title:Discharge Note Author:New Johnson DO Date:01/24/23 Discharge To, Anticipated II - [facility] Unit Discharged to - Home independently Transported [...] When Contact Information Dharmesh POTTS, Bienvenido Chavira, [address] [address]- Additional Instructions: Dementia, Wihg-mx-Baey Extracted from: Title:APSO Note Author:New Johnson DO e:01/23/23 1. Generalized weakness (R53 .1: Weakness) IV fluids, trend BUN and creatinine PT/OT Currently awaiting pre-CERT for placement 2. Alzheimers disease (G30.9: Alzheimer's disease, unspecified) Continue Seroquel 3. CAD in zuni artery (I25.10: Atherosclerotic heart disease of zuni coronary artery without angina pectoris) Continue aspirin [...] Ordered: Initial Hospital Care/Day Moderate 55 Minutes 51021 Sbsq Hospital Care/Day Straight Fwd 25 Minutes 10910 2. Alzheimers disease (G30.9: Alzheimer's disease, unspecified) Continue Seroquel 3. CAD in zuni artery (I25.10: Atherosclerotic heart disease of zuni coronary artery without angina pectoris) Continue aspirin [...] (G30.9: Alzheimer's disease, unspecified) 3. 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 COPD [...] Ordered: Initial Hospital Care/Day Moderate 55 Minutes 31822 2. Alzheimers disease (G30.9: Alzheimer's disease, unspecified) Continue Seroquel 3. 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 [facility]09-03-2023 India[facility]healthComment on above:Result Comment: Electronically Signed By: New Johnson DO\.br\Date and Time Signed: 01/24/23 09:57 [id number] Hospital Discharge instructions Patient Education 01/24/2023 09:54:03 Dementia, Ahcr-bm-Pjqm Dementia Dementia is a condition that affects [...] Follow these instructions at home: Medicines Take kzyj-sev-fdanfwz and prescription medicines only as told by [...] find more information Alzheimer's Association: www.alz.org National [place] on Aging: www.susie.nih.gov/alzheimers World Health Organization: www.who.int [...] room or: Call your local emergency services (041 in the [place] Call the National Suicide Prevention Lifeline at or 425 in the [place] This is open 24 hours a day. Text the Crisis Text Line at 200713. Summary Dementia often affects memory and thinking. [...] provider. Document Revised: 12/03/2021 Document Reviewed: 09/23/2020 [employer] Patient Education 2022 Attenex. Follow Up Care 01/21/2023 15:06:04 With:Dharmesh POTTS, Bienvenido Chavira, [facility] Address: [address] [place] [id number] When: Unknown [facility]08-31-2023 NoteOhiohealthComment on above:Result Comment: Electronically Signed By: New Johnson DO.br\Date and Time Signed: 01/21/23 17:53 [id number] Evaluation + Plan note Extracted from: Title:Discharge Note Author:MICHAEL POTTS, Jamir Gerry e:12/20/22 stable Discharge To, Anticipated II - [facility] Unit Discharged to - senior care unit SNF Discharge Diet(s): Calorie Controlled- 1800 Calorie Diet (12/20/22 09:46:00) Prescriptions alprazolam 0.5 mg Tab, 0.5 mg= 1 tab(s), Oral, Daily, PRN aspirin 81 mg Oral EC Tab, 81 mg= 1 tab(s), Oral, Daily Augmentin 875 mg oral tablet, 1 tab(s), Oral, q12hr ergocalciferol 50,000 intl units Cap, 47647 International_Unit= 1 cap(s), Oral, q7day furosemide 40 [...] BID With When Contact Information Bienvenido Barroso [address] [place], [place] [id number] [email or web address] (1) Additional Instructions: Call for followup appointment [...] 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 Coronary artery disease (I25.10: Atherosclerotic heart disease of zuni coronary artery without angina pectoris) Patient had [...] 9. Pulmonary hypertension (I27.20: Pulmonary hypertension, unspecified) [place] secondary to above 10. Hypertension (I10: Essential [...] recent hospitalization has been titrated at the [facility]. He was recently placed on Xanax, discontinue that at this time. Awaiting verification of meds from the [facility] 15. Encounter for deep vein thrombosis [...] patient's RN it was advised that the jail was planning on sending a copy of [...] Tests Pending * Legionella Antigen Urine 12/18/22 [facility]07-30-2023 NoteCRM entered the room to discuss dc planning. PCP, DME and insurance discussed. Patient is alert andinvolved in plan of care. Contact information given and whiteboard updated. Pt will dc [facility] room 17 today. CRM to follow.OhiohealthComment on above:Result Comment: Electronically Signed By: Natalie Grant\Date and Time Signed: 12/20/22 11:52 [id number] IndiaOhiohealthComment on above: Result Comment: Electronically Signed By: Leslie MCKINNEY MD.candice\Date and Time Signed: 12/20/22 10:[id number] Hospital Discharge instructions Patient Education 12/20/2022 09:48:09 [...] a long-term care facility, such as a jail. Having your kidneys filtered through hemodialysis in [...] hard liquor (44 mL). General instructions Take gdsd-sia-ubfkbbi and prescription medicines as told by your [...] are not available, use an alcohol-based hand ironworker helper shop. ?Make sure your health care providers wash [...] and water or with alcohol- based hand ironworker helper shop before and after caring for sick people. [...] bacteria common in health care settings. Take extn-gda-pysooqk and prescription medicines as told by your [...] provider. Document Revised: 05/31/2022 Document Reviewed: 05/31/2022 [employer] Patient Education 2022 Attenex. Follow Up Care 12/17/2022 23:50:19 With:Bienvenido Barroso Address: [address] [place] [phone]- Business (1) When: Unknown Comments:Call for followup appointment [facility]07-28-2023 [facility]:Result Comment: Electronically Signed By: Maycol CAGLE DO\.br\Date and Time Signed: 12/18/22 06:27 [id number] NoteOhiohealthComment on above:Result Comment: Electronically Signed By: Lizeth Cedeno MD\.br\Date and Time Signed: 12/02/22 12:28 [id number] Evaluation + Plan noteExtracted from: Title:Discharge Note Author:Lizeth Cedeno MD ate:12/02/22 Stable Discharge To, Anticipated II - [facility] Unit Discharged to - Home with family care Transported by, Anticipated - Family Discharge Diet(s): Other: Limit fluids to 1800 ml/day (12/02/22 12:23:00) Prescriptions aspirin 81 mg Oral EC Tab, 81 mg= 1 tab(s), Oral, Daily ergocalciferol 50,000 intl units Cap, 30556 International_Unit= 1 cap(s), Oral, q7day furosemide 40 [...] Bedtime With When Contact Information Joanie Jiménez [facility] [address] [place] [address]- Business (1) Additional Instructions: HFpEF Dave Dickeydict [address] [place] [address]- Business (1) Additional Instructions: Cog impariment, Alzhiemer's Bienvenido Barroso In [address] [place] [address]- Business (1) Additional Instructions: Extracted from: Title:UPDATE [...] of CAD and previous coronary interventions in [place] with no indication of recurrent CAD, would [...] as able, pulm avery. -check echo Ordered: [facility] Hospital Care/Day High 50 Minutes 12079 2. Acute on chronic diastolic heart failure (I50.33: Acute on chronic diastolic (congestive) heart failure) c/w spironolactone and lasix IV 40mg qd -strict I/Os and daily weight - last echo was done 2014 with EF of 50%. will recheck this visit Ordered: [facility] Hospital Care/Day High 50 Minutes 50378 3. COPD without exacerbation (J44.9: Chronic obstructive pulmonary disease, unspecified) Ordered: [facility] Hospital Care/Day High 50 Minutes 06144 4. Weakness (R53.1: Weakness) -pt/ot Ordered: [facility] Hospital Care/Day High 50 Minutes 50566 5. Sinus bradycardia (R00.1: Bradycardia, unspecified) baseline. last EKG similar. -pt had decreased HR overnight so BB was held. -continue to monitor on tele Ordered: [facility] Hospital Care/Day High 50 Minutes 29829 6. Coronary artery disease (I25.10: Atherosclerotic heart disease of zuni coronary artery without angina pectoris) -c/w ASA Ordered: [facility] Hospital Care/Day High 50 Minutes 56413 7. Obstructive sleep apnea (G47.33: Obstructive sleep apnea (adult) (pediatric)) -CPAP qHS Ordered: [facility] Hospital Care/Day High 50 Minutes 72311 8. Pulmonary hypertension (I27.20: Pulmonary hypertension, unspecified) c/w spironolactone 50mg -lasix 40 mg iv qd -strict I/Os daily weights -check echo Ordered: [facility] Hospital Care/Day High 50 Minutes 27194 9. Abdominal pain (R10.9: Unspecified abdominal pain) resolved no complaints this morning Ordered: [facility] Hospital Care/Day High 50 Minutes 40888 10. Hypertension (I10: Essential (primary) hypertension) c/w spironolactone Ordered: [facility] Care/Day High 50 Minutes 96118 11. Diabetes (E11.9: Type 2 diabetes mellitus without complications) BGT qACHS -c/w glimepiride Ordered: [facility] Hospital Care/Day High 50 Minutes 92780 12. Hyperlipidemia (E78.5: Hyperlipidemia, unspecified) -hold statin due to elevated CK Ordered: [facility] Hospital Care/Day High 50 Minutes 94536 13. Chronic anemia (D64.9: Anemia, unspecified) monitor Ordered: [facility] Care/Day High 50 Minutes 78155 14. BPH (benign prostatic hyperplasia) (N40.0: Benign prostatic hyperplasia without lower urinary tract symptoms) c/w tamsulosin Ordered: [facility] Care/Day High 50 Minutes 98719 15. Dementia (F03.90: Unspecified dementia, unspecified severity, without behavioral disturbance, psychotic disturbance, mood disturbance, and anxiety) -c/w seroquel 25mg qHS Ordered: [facility] Care/Day High 50 Minutes 78472 16. Encounter for deep vein thrombosis (DVT) prophylaxis (Z29.9: Encounter for prophylactic measures, unspecified) Ordered: [facility] Care/Day High 50 Minutes 69526 17. Elevated CK (R74.8: Abnormal levels of other serum enzymes) -CK 1000 this morning. will monitor and hold statin - will not give fluids due to current diuresis Ordered: [facility] Care/Day High 50 Minutes 68858 COPD with acute exacerbation (J44.1: Chronic obstructive [...] artery disease (I25.10: Atherosclerotic heart disease of zuni coronary artery without angina pectoris) Continue aspirin, [...] Scheduled Provider:Donta NOONAN MD Location:Extended Care Appointment Type:[facility]07-10-20[facility] score 15/24 = SNF. Patient requires assist w/ all transfers and self care at this time. Inpatient OT services to follow daily to progress w/ functional skills.[facility]07-[facility] NotePT Evaluation completed with an AMPAC score of 16/24. Pt requires Min A for bed mobility and min/Mod A to stand. Pt was able to take two sidesteps. Will follow daily, but [facility]:Result Comment: Electronically Signed By: Maycol CAGLE DO\.br\Date and Time Signed: 11/29/22 01:33 [id number] Hospital Discharge instructions Follow Up Care 11/28/2022 17:10:04 With:Joanie Jiménez Address: [facility] [address], [address] [place] [address]- Business (1) When: Unknown Comments:HFpEF With:Dave Cruz Address: [address] [place] [address]- Business (1) When: Unknown Comments:Cog impariment, Alzhiemer's With:Bienvenido Barroso Address: [address] [place] [address] Business (1) When: Unknown [facility]05-20-2023 NoteOhiohealthComment on above:Result Comment: Electronically Signed By: Adeline COLEMAN\.br\Date and Time Signed: 10/10/22 17:53 EDT\.br\Electronically Co- Signed By: Ganesh Minaya MD\.br\Date and Time Co-Signed: 10/10/22 18:51 EDT 09-27-2022 [facility] on above:Result Comment: Electronically Signed By: Adeline COLEMAN\.br\Date and Time Signed: 09/26/22 21:20 EDT\.br\Electronically Co-Signed By: Ganesh Minaya MD\.br\Date and Time Co-Signed: 09/27/22 08:00 [id number] History of Present illness Narrative* Marcelino Echavarria MD - 09/07/2022 1:12 AM EDT Images from the original note were not included. EMERGENCY TRIAGE, TREAT AND TRANSPORT (ET3) DOCUMENTATION OF TELEHEALTH VISIT Date / Time: 09/06/20222146 Name: Clyde Humphrey : 1945 SSN: [id number] EMS Agency: [facility] [x] Verbal consent obtained [] [...] note No data available for this section [facility] Fall, initial encounter- Primary documented in this encounter [facility] No data available for this section [facility] No data available for this section [facility] Summary Purpose Family History No Family [...] section and content) DATE CREATED AUTHOR 06/26/2021 [facility] dical Specialist DATE CREATED AUTHOR AUTHOR'S ORGANIZ ATION 12/05/2022 [facility] DATE CREATED AUTHOR AUTHOR'S ORGANIZ ATION 03/26/2023 [facility] DATE CREATED AUTHOR AUTHOR'S ORGANIZ ATION 05/04/2023 [facility] DATE CREATED AUTHOR AUTHOR'S ORGANIZ ATION 01/10/2024 [facility] DATE CREATED AUTHOR AUTHOR'S ORGANIZ ATION 01/18/2024 [facility] DATE CREATED AUTHOR AUTHOR'S ORGANIZ ATION 02/02/2024 [facility] Reason for Visit (unrecogniz ed section and content) Reason Comments Fall Patient Care team informatio n (unrecognized section and content) Personnel Name: Bienvenido Barroso MD Address: Address: [address] [place] [address] Name: Andrew Rodriguez Personnel Name: Bienvenido Barroso MD Address: Address: [address] [place] [address] Name: Andrew Rodriguez Personnel Name: Bienvenido Barroso MD Address: Address: [address] [place] [address] Name: Andrew Rodriguez Personnel Name: Bienvenido Barroso MD Address: Address: [address] [place] [address] Name: Andrew Rodriguez Patti Personnel Name: Bienvenido Barroso MD Address: Address: [address] [place] [address] Name: Andrew Rodriguez Personnel Name: Bienvenido Barroso MD Address: Address: [address] [place] [address] Name: Andrew Rodriguez Personnel Name: Bienvenido Barroso MD Address: Address: [address] [place] [address] Name: Andrew Rodriguez Personnel Name: Bienvenido Barroso MD Address: Address: [address] [place] [address] Name: Luis Gil LPN Name: Andrew Rodriguez [...] BE BASED ON THE PRIMARY CLINICAL RECORDS. [facility]. provides no warranty or guarantee of the accuracy or completeness of information in this document.
[2024-03-03 20:37] LABS: Anion Gap 9.1; BUN Creatinine Ratio 21.4; Calcium 10.2 mg/dL (8.5-10.1); Carbon Dioxide 38.2 mmol/L (21.0-32.0); Chloride 95 mmol/L (98-107); Estimated GFR (African America 46 (>=60 mL/min/1.73m^2); Estimated GFR (Non-African Ame 38 (>=60 mL/min/1.73m^2); Glucose 132 mg/dL (74-106); Potassium 4.3 mmol/L (3.5-5.1); Sodium 138 mmol/L (136-145)
== END 2024-03-03 19:33 | disposition home or self-care (01) ==
LOC: LAB 19:32
PROVIDERS: PCP Family Medicine; Visit Provider Family Medicine
DX: R41.82 Altered mental status, unspecified (principal)
CPT/HCPCS: 36415; 80048; 83880

== ENCOUNTER 2024-03-07 12:51 | Inpatient (IN) | payer OTHER, MEDICAID, SELFPAY ==
[2024-03-07] VITALS (55 sets, daily range): BP systolic 117–143; BP diastolic 48–88; PULSE 0–96; RESP 20; TEMP 36.7–37.1; O2SAT 79–100; BMI 35.9; BMI 27.8
--- NOTE | 2024-03-07 12:55 | XR_ITS ---
The [address] [address] Patient Name: CLYDE MARINA MRN: [id number] date: 1945 Sex: M Assigned Patient Location: ER Current Patient Location: ER Accession/Order Number: [id number] Exam Date: 03/07/2024 13:11 Report Date: 03/07/2024 13:54 At the request of: YESENIA WHITE Procedure: XR chest 1V EXAMINATION: XR chest 1V HISTORY: Altered mental status COMPARISON: 01/08/2024 TECHNIQUE: AP portable FINDINGS: LUNGS: No significant pulmonary parenchymal abnormalities. VASCULATURE: No increased pulmonary vasculature. PLEURA: No pneumothorax, effusion, or pleural thickening. CARDIAC: No cardiomegaly or cardiac silhouette abnormality. MEDIASTINUM: Mild stable cardiomegaly Left bipolar pacemaker. Aortic atherosclerosis BONES: No fracture or visible bone lesion. OTHER: Negative. XR/XR chest 1V IMPRESSION: Clear lungs Electronically authenticated by: MIS ALVAREZ Date: 03/07/2024 13:54
--- NOTE | 2024-03-07 12:55 | ECG_ITS ---
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
[2024-03-07 13:18] LABS: pH ABG 7.379 (7.350-7.450)
[2024-03-07 13:19] LABS: Allen Test POSITIVE (POSITIVE); Base Excess ABG 11.6 mmol/L (-2.0-2.0); HCO3 ABG 36.8 mmol/L (22.0-26.0); Oxygen Saturation ABG 93.9 %; PO2 ABG 70.9 mmHg (80.0-100.0)
[2024-03-07 13:20] LABS: BIPAP Pressure 16/8; Fractionated Inspired Oxygen 30 %; Liters per Minute 14; O2 Mode BIPAP; Puncture Site LR
[2024-03-07 13:22] LABS: ABG PCO2 62.3 mmHg (35.0-45.0)
--- NOTE | 2024-03-07 13:50 | ED_ITS ---
HPI HPI - General Adult General Chief complaint: Altered Mental Status Stated complaint: SHORTNESS OF BREATH/ GENERAL WEAKNESS Time Seen by Provider: 03/07/24 12:55 Source: patient, caregiver and medical record Mode of arrival: ambulance Limitations: altered mental status History of Present Illness HPI narrative: 78-year-old male presents from [facility] for altered mental status. half-way called report and reported that he was not as active as he usually was, seemingly drowsy. The senior living also reported that he has not been using his CPAP at nighttime for the last few nights. When paramedics arrived they reported that he was sitting in his room upright and was eating. They transported him here. They were not able to get a good pulse ox reading and they placed him on nonrebreather. No history is obtainable from the patient. He has a history of dementia. Related Data Home Medications ?Medication ?Instructions ?Recorded ?Confirmed acetaminophen 325 mg capsule 650 mg PO Q6H PRN fever or pain 01/31/23 01/08/24 citalopram 20 mg tablet (Celexa) 20 mg PO DAILY 01/31/23 01/08/24 furosemide 40 mg tablet 40 mg PO DAILY 01/31/23 01/08/24 lovastatin 40 mg tablet,extended 40 mg PO QPM 01/31/23 01/08/24 release 24 hr (Altoprev) tamsulosin 0.4 mg capsule (Flomax) 0.4 mg PO BID 01/31/23 01/08/24 albuterol sulfate 2.5 mg/3 mL 2.5 mg inhalation Q6H PRN 01/03/24 01/08/24 (0.083 %) solution for nebulization shortness of breath or wheezing aspirin 81 mg tablet,delayed 81 mg PO DAILY 01/03/24 01/08/24 release (Adult Low Dose Aspirin) cetirizine 10 mg tablet (All Day 10 mg PO DAILY PRN allergy symptoms 01/03/24 01/08/24 Allergy (cetirizine)) cholecalciferol (vitamin D3) 50 50 mcg PO DAILY 01/03/24 01/08/24 mcg (2,000 unit) tablet metformin 500 mg tablet,extended 1,000 mg PO BID 01/03/24 01/08/24 release 24 hr nystatin 100,000 unit/gram topical 1 applic topical TID 01/03/24 01/08/24 powder spironolactone 25 mg tablet 25 mg PO DAILY 01/03/24 01/08/24 Previous Rx's ?Medication ?Instructions ?Recorded haloperidol 1 mg tablet 1 mg PO BID #60 tabs 01/04/24 valproic acid 250 mg capsule 500 mg (2 x 250 mg) PO TID #180 01/04/24 caps Allergies Allergy/AdvReac Type Severity Reaction Status Date / Time No Known Drug Allergies Allergy Verified 01/08/24 19:13 Opioid HPI Opioid Management Most Recent Opioid Data: Last Pain Scale 6 01/04/24 10:19 01/04/24 Last Pain Intensity 3 01/04/24 10:19 01/04/24 Last ORT Total Score 0 01/03/24 16:51 01/03/24 Last ORT Risk Category Low Risk 01/03/24 16:51 01/03/24 Review of Systems ROS Narrative Not obtainable, dementia PFSH [facility] Medical History (Updated 03/07/24 @ 15:07 by Stephen Barlow MD) Laceration of nose ?S01.21XA - Laceration without foreign body of nose, initial encounter (ICD- 10) New onset seizure ?R56.9 - Unspecified convulsions (ICD-10) Dementia with behavioral disturbance ?F03.918 - Unspecified dementia, unspecified severity, with other behavioral disturbance (ICD-10) Behavioral problem Sleep apnea ?G47.30 - Sleep apnea, unspecified (ICD-10) COPD (chronic obstructive pulmonary disease) ?J44.9 - Chronic obstructive pulmonary disease, unspecified (ICD-10) Surgical History (Updated 01/03/24 @ 16:01 by Pia Segura LPN) H/O heart artery stent ?Z95.5 - Presence of coronary angioplasty implant and graft (ICD-10) Family History (Updated 01/03/24 @ 16:02 by Pia Segura LPN) Mother Family history of CHF (congestive heart failure) Family history of COPD (chronic obstructive pulmonary disease) Father Family history of CHF (congestive heart failure) Brother Family history of CHF (congestive heart failure) Family history of diabetes mellitus Family history of myocardial infarction Social History (Updated 01/03/24 @ 16:04 by Pia Segura LPN) Within the past year, how often did you have a drink containing alcohol: never Within the past year, how many standard drinks containing alcohol did you have on a typical day: 1 or 2 Within the past year, how often did you have six or more drinks on one occasion: never Total score: 0 Score interpretation: A score less than 4 is consistent with normal alcohol consumption. 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 Known occupational exposures/hazards: No Highest level of school completed/degree received: high school graduate Do you want help with school or training: No Are you now , , , , never or living with a partner: In a typical week, how many times do you talk on the telephone with family, friends, or neighbors: once per week How often do you get together with friends or relatives: once per week How often do you attend tenriism or pentecostal services: 4 or more times per year Do you belong to any clubs or organizations such as tenriism groups unions, fraternal or athletic groups, or school groups: no Total score: 2 Score interpretation: A score of greater than or equal to 2 indicates the lowest level of social isolation. Little interest or pleasure in doing things: not at all Feeling down, depressed, or hopeless: not at all Feel stressed/tense/nervous/anxious/difficulty sleeping: not at all Due to disability, difficulty making decisions: No Do you think of yourself as: straight/heterosexual Gender Identity: male Exam Narrative Exam Narrative: Nurses note and vital signs reviewed and patient is not hypoxic. General: The patient is not in acute distress upon arrival. He is on a nonrebreather. His eyes are closed and initially was not opening them when stimulated. Skin: Warm, dry, no pallor noted. There is no rash noted. No cyanosis Head: Normocephalic, atraumatic Eye: Normal conjunctiva, no drainage Ears, Nose, Mouth, and Throat: oral mucosa is moist. Nares patent. Cardiovascular: Regular Rate and Rhythm Respiratory: Breath sounds are equal bilaterally Back: non-tender GI: Soft and nontender Musculoskeletal: The patient has no evidence of calf tenderness, no pitting edema, symmetrical pulses noted bilaterally Neurological: Nonverbal. Upon arrival does not follow commands. Later he was awake and looking around the room. He seems to be moving all 4 extremities with purpose. Psychiatric: Cannot be assessed, dementia, nonverbal Constitutional Vital Signs, click to edit/add: Last Vital Signs Temp 98.1 F 03/07/24 12:53 Pulse 74 03/07/24 14:32 Resp 21 H 03/07/24 14:32 BP 119/68 03/07/24 14:32 Pulse Ox 90 L 03/07/24 14:32 O2 Del Method BIPAP 03/07/24 14:16 O2 Flow Rate 15 03/07/24 12:53 FiO2 30 03/07/24 13:34 Course Vital Signs Vital signs: Vital Signs Temperature 98.1 F 03/07/24 12:53 Pulse Rate 69 03/07/24 12:53 Respiratory Rate 18 03/07/24 12:53 Blood Pressure 130/60 03/07/24 12:53 Pulse Oximetry 100 03/07/24 12:53 Oxygen Delivery Method Nonrebreather 03/07/24 12:53 Oxygen Delivery Flow Rate 15 03/07/24 12:53 Temperature 98.1 F 03/07/24 12:53 Pulse Rate 74 03/07/24 14:32 Respiratory Rate 21 H 03/07/24 14:32 Blood Pressure 119/68 03/07/24 14:32 Pulse Oximetry 90 L 03/07/24 14:32 Oxygen Delivery Method BIPAP 03/07/24 14:16 Oxygen Delivery Flow Rate 15 03/07/24 12:53 Fraction of Inspired Oxygen 30 03/07/24 13:34 Medical Decision Making MDM Narrative Medical decision making narrative: The patient presented with decreased level of consciousness. He was found to have elevated CO2 was placed on BiPAP. Subsequently he became more awake and wa s trying to pull his BiPAP off and we had to restrain him with soft restraints for his safety and give him IV Ativan. His workup otherwise is negative including his chest x-ray and COVID and influenza swabs. He is being admitted to ICU. Differential Diagnosis Differential Diagnosis: Respiratory failure, pneumonia, COVID, influenza Lab Data Lab results reviewed: Yes I reviewed the patient's lab results Labs: Lab Results 03/07/24 03/07/24 03/07/24 Range/Units 13:08 13:10 13:12 WBC 8.2 (4.0-11.0) 10^3/uL RBC 4.52 L (4.70-6.10) 10^6/uL Hgb 13.3 L (14.0-18.0) g/dL Hct 42.8 (42.0-54.0) % MCV 94.7 H (80.0-94.0) fL MCH 29.4 (25.9-34.0) pg MCHC 31.1 (29.9-35.2) g/dL RDW 16.9 H (11.0-15.0) % Plt Count 204 (150-450) 10^3/uL MPV 10.8 (9.5-13.5) fL Neut % (Auto) 66.5 (43.0-75.0) % Lymph % (Auto) 16.2 L (20.5-60.0) % Telfair % (Auto) 10.6 (1.7-12.0) % Eos % (Auto) 1.5 (0.9-7.0) % Baso % (Auto) 0.7 (0.2-2.0) % Neut # (Auto) 5.5 (1.4-6.5) 10^3/uL Lymph # (Auto) 1.3 (1.2-3.8) 10^3/uL Telfair # (Auto) 0.9 H (0.3-0.8) 10^3/uL Eos # (Auto) 0.1 (0.0-0.7) 10^3/uL Baso # (Auto) 0.1 (0.0-0.1) 10^3/uL Abs Immat Gran (auto) 0.37 H (0.00-0.03) 10^3/uL Imm/Tot Granulo (auto) 4.5 H (0.0-0.5) % Puncture Site Lr ABG pH 7.379 (7.350-7.450) ABG pCO2 62.3 H* (35.0-45.0) mmHg ABG pO2 70.9 L (80.0-100.0) mmHg ABG HCO3 36.8 H (22.0-26.0) mmol/L ABG O2 Saturation 93.9 % ABG Base Excess 11.6 H (-2.0-2.0) mmol/L Gonzalo Test Positive (POSITIVE) O2 Liters/Min 14 FiO2 30 % BiPAP 16/8 Sodium 148 H (136-145) mmol/L Potassium 5.4 H (3.5-5.1) mmol/L Chloride 102 (98-107) mmol/L Carbon Dioxide 38.2 H (21.0-32.0) mmol/L Anion Gap 13.2 BUN 73.0 H (7.0-18.0) mg/dL Creatinine 3.02 H (0.70-1.30) mg/dL Est GFR ( Amer) 24 L (>=60 mL/min/1.73m^2) Est GFR (Non-Af Amer) 20 L (>=60 mL/min/1.73m^2) BUN/Creatinine Ratio 24.2 Glucose 156 H (74-106) mg/dL Calcium 9.7 (8.5-10.1) mg/dL Troponin I High Sens 149.1 H* (4.0-76.1) pg/mL NT-Pro-B Natriuret Pep 99699.0 H* (<=1800.0) pg/mL Influenza Type A Ag Negative Influenza Type B Ag Negative SARS-CoV-2 Ag (CV2AG) Negative (NEGATIVE) 03/07/24 Range/Units 14:29 WBC (4.0-11.0) 10^3/uL RBC (4.70-6.10) 10^6/uL Hgb (14.0-18.0) g/dL Hct (42.0-54.0) % MCV (80.0-94.0) fL MCH (25.9-34.0) pg MCHC (29.9-35.2) g/dL RDW (11.0-15.0) % Plt Count (150-450) 10^3/uL MPV (9.5-13.5) fL Neut % (Auto) (43.0-75.0) % Lymph % (Auto) (20.5-60.0) % Telfair % (Auto) (1.7-12.0) % Eos % (Auto) (0.9-7.0) % Baso % (Auto) (0.2-2.0) % Neut # (Auto) (1.4-6.5) 10^3/uL Lymph # (Auto) (1.2-3.8) 10^3/uL Telfair # (Auto) (0.3-0.8) 10^3/uL Eos # (Auto) (0.0-0.7) 10^3/uL Baso # (Auto) (0.0-0.1) 10^3/uL Abs Immat Gran (auto) (0.00-0.03) 10^3/uL Imm/Tot Granulo (auto) (0.0-0.5) % Puncture Site ABG pH (7.350-7.450) ABG pCO2 (35.0-45.0) mmHg ABG pO2 (80.0-100.0) mmHg ABG HCO3 (22.0-26.0) mmol/L ABG O2 Saturation % ABG Base Excess (-2.0-2.0) mmol/L Gonzalo Test (POSITIVE) O2 Liters/Min FiO2 % BiPAP Sodium (136-145) mmol/L Potassium (3.5-5.1) mmol/L Chloride (98-107) mmol/L Carbon Dioxide (21.0-32.0) mmol/L Anion Gap BUN (7.0-18.0) mg/dL Creatinine (0.70-1.30) mg/dL Est GFR ( Amer) (>=60 mL/min/1.73m^2) Est GFR (Non-Af Amer) (>=60 mL/min/1.73m^2) BUN/Creatinine Ratio Glucose (74-106) mg/dL Calcium (8.5-10.1) mg/dL Troponin I High Sens 155.0 H* (4.0-76.1) pg/mL NT-Pro-B Natriuret Pep (<=1800.0) pg/mL Influenza Type A Ag Influenza Type B Ag SARS-CoV-2 Ag (CV2AG) (NEGATIVE) Imaging Data Chest x-ray: Radiologist's impression: ITS Impressions Chest X-Ray 03/07/24 12:55 IMPRESSION: Clear lungs Electronically authenticated by: MIS ALVAREZ Date: 03/07/2024 13:54 ECG Data Attestation: I personally reviewed and interpreted this ECG as follows: (EKG on my interpretation shows sinus rhythm with a rate of 75 and no acute change) Critical Care Time Critical Care Time Critical Care Time: Yes Total Critical Care Time: 45 Attestation: Due to the high probability of sudden and clinically significant deterioration in the patient's condition he/she required the highest level of my preparedness to intervene urgently I provided critical care time including documentation time, medication orders and management, reevaluation, vital sign assessment, ordering and reviewing of lab tests, ordering and reviewing of x-ray studies, and admission orders. Aggregate critical care time is 45 minutes including only time during which I was engaged in work directly related to his/her care and did not include time spent treating other patients simultaneously. Discharge Plan Discharge Chief Complaint: Altered Mental Status Clinical Impression: Respiratory failure Patient Disposition: Admitted As Inpatient Time of Disposition Decision: 15:06 Condition: Fair
[2024-03-07 13:51] LABS: Basophils Absolute Auto 0.1 10^3/uL (0.0-0.1); Basophils Percent Auto 0.7 % (0.2-2.0); Eosinophils Absolute Auto 0.1 10^3/uL (0.0-0.7); Eosinophils Percent Auto 1.5 % (0.9-7.0); Hematocrit 42.8 % (42.0-54.0); Hemoglobin 13.3 g/dL (14.0-18.0); Immature Granulocytes Abs Auto 0.37 10^3/uL (0.00-0.03); Immature Granulocytes Pct Auto 4.5 % (0.0-0.5); Lymphocytes Absolute Auto 1.3 10^3/uL (1.2-3.8); Lymphocytes Percent Auto 16.2 % (20.5-60.0); Mean Corpuscular HGB Conc 31.1 g/dL (29.9-35.2); Mean Corpuscular Hemoglobin 29.4 pg (25.9-34.0); Mean Corpuscular Volume 94.7 fL (80.0-94.0); Mean Platelet Volume 10.8 fL (9.5-13.5); Monocytes Absolute Auto 0.9 10^3/uL (0.3-0.8); Monocytes Percent Auto 10.6 % (1.7-12.0); Neutrophils Absolute Auto 5.5 10^3/uL (1.4-6.5); Neutrophils Percent Auto 66.5 % (43.0-75.0); Platelet Count 204 10^3/uL (150-450); Red Blood Count 4.52 10^6/uL (4.70-6.10); Red Cell Distribution Width 16.9 % (11.0-15.0); White Blood Count 8.2 10^3/uL (4.0-11.0)
[2024-03-07 14:00] LABS: Anion Gap 13.2; BUN Creatinine Ratio 24.2; Calcium 9.7 mg/dL (8.5-10.1); Carbon Dioxide 38.2 mmol/L (21.0-32.0); Chloride 102 mmol/L (98-107); Estimated GFR (African America 24 (>=60 mL/min/1.73m^2); Estimated GFR (Non-African Ame 20 (>=60 mL/min/1.73m^2); Glucose 156 mg/dL (74-106); Potassium 5.4 mmol/L (3.5-5.1); Sodium 148 mmol/L (136-145)
[2024-03-07 14:12] LABS: Influenza Virus A Antigen Negative; Influenza Virus B Antigen Negative; Internal Control Within Normal Limits; SARS-CoV-2 Ag NEGATIVE (NEGATIVE)
[2024-03-07 14:15] LABS: Troponin I High Sensitivity 149.1 pg/mL (4.0-76.1)
[2024-03-07] MEDS: LORAZEPAM 2 MG/ML VIAL 0.5 MG IV (14:41)
--- NOTE | 2024-03-07 15:32 | P.HP_ITS ---
HPI H&P: HPI History of Present Illness Chief complaint: SHORTNESS OF BREATH/ GENERAL WEAKNESS Narrative: Patient was found by staff at the snf to be obtunded, having significant respiratory distress with O2 sats in the 70s, squad was called, placed on supplemental oxygen, somewhat combative on his way in, in the ER had the same placed on BiPAP due to significant hypoxia in the 70s. Patient became very agitated had to use soft restraints, given 0.5 mg of Ativan with improve ment in agitation but increased sedation When I saw patient in the emergency room, patient was completely obtunded, did not respond to voice touch otherwise vital signs were stable with normal heart rate, no hypoxia on BiPAP soft restraints applied and monitor personnel in the room Opioid HPI Opioid Management Most Recent Pain and Opioid Data: Last Pain Scale 6 01/04/24 10:19 01/04/24 Last Pain Intensity 3 01/04/24 10:19 01/04/24 Last ORT Total Score 0 01/03/24 16:51 01/03/24 Last ORT Risk Category Low Risk 01/03/24 16:51 01/03/24 Review of Systems ROS Narrative Unable to get significant history from patient, no family available, reviewed chart with emergency room physician Status of ROS 10 or more systems reviewed and unremark able except as noted in history and below [facility] Medical History (Updated 03/07/24 @ 15:49 by Kristofer Brown MD) Pacemaker ?Z95.0 - Presence of cardiac pacemaker (ICD-10) Laceration of nose ?S01.21XA - Laceration without foreign body of nose, initial encounter (ICD- 10) New onset seizure ?R56.9 - Unspecified convulsions (ICD-10) Dementia with behavioral disturbance ?F03.918 - Unspecified dementia, unspecified severity, with other behavioral disturbance (ICD-10) Behavioral problem Sleep apnea ?G47.30 - Sleep apnea, unspecified (ICD-10) COPD (chronic obstructive pulmonary disease) ?J44.9 - Chronic obstructive pulmonary disease, unspecified (ICD-10) Surgical History (Updated 01/03/24 @ 16:01 by Pia Segura LPN) H/O heart artery stent ?Z95.5 - Presence of coronary angioplasty implant and graft (ICD-10) Family History (Updated 01/03/24 @ 16:02 by Pia Segura LPN) Mother Family history of CHF (congestive heart failure) Family history of COPD (chronic obstructive pulmonary disease) Father Family history of CHF (congestive heart failure) Brother Family history of CHF (congestive heart failure) Family history of diabetes mellitus Family history of myocardial infarction Social History (Updated 01/03/24 @ 16:04 by Pia Segura LPN) Within the past year, how often did you have a drink containing alcohol: never Within the past year, how many standard drinks containing alcohol did you have on a typical day: 1 or 2 Within the past year, how often did you have six or more drinks on one occasion: never Total score: 0 Score interpretation: A score less than 4 is consistent with normal alcohol consumption. 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 Known occupational exposures/hazards: No Highest level of school completed/degree received: high school graduate Do you want help with school or training: No Are you now , , , , never or living with a partner: In a typical week, how many times do you talk on the telephone with family, friends, or neighbors: once per week How often do you get together with friends or relatives: once per week How often do you attend judaism or mandaen services: 4 or more times per year Do you belong to any clubs or organizations such as judaism groups unions, fraternal or athletic groups, or school groups: no Total score: 2 Score interpretation: A score of greater than or equal to 2 indicates the lowest level of social isolation. Little interest or pleasure in doing things: not at all Feeling down, depressed, or hopeless: not at all Feel stressed/tense/nervous/anxious/difficulty sleeping: not at all Due to disability, difficulty making decisions: No Do you think of yourself as: straight/heterosexual Gender Identity: male Meds Home Medications and Allergies Home Medications ?Medication ?Instructions ?Recorded ?Confirmed ?Type acetaminophen 325 mg capsule 650 mg PO Q6H PRN fever or pain 01/31/23 01/08/24 History citalopram 20 mg tablet (Celexa) 20 mg PO DAILY 01/31/23 01/08/24 History furosemide 40 mg tablet 40 mg PO DAILY 01/31/23 01/08/24 History lovastatin 40 mg tablet,extended 40 mg PO QPM 01/31/23 03/07/24 History release 24 hr (Altoprev) tamsulosin 0.4 mg capsule (Flomax) 0.4 mg PO BID 01/31/23 01/08/24 History albuterol sulfate 2.5 mg/3 mL 2.5 mg inhalation Q6H PRN 01/03/24 03/07/24 History (0.083 %) solution for nebulization shortness of breath or wheezing aspirin 81 mg tablet,delayed 81 mg PO DAILY 01/03/24 01/08/24 History release (Adult Low Dose Aspirin) cetirizine 10 mg tablet (All Day 10 mg PO DAILY PRN allergy symptoms 01/03/24 01/08/24 History Allergy (cetirizine)) cholecalciferol (vitamin D3) 50 50 mcg PO DAILY 01/03/24 01/08/24 History mcg (2,000 unit) tablet metformin 500 mg tablet,extended 1,000 mg PO BID 01/03/24 03/07/24 History release 24 hr nystatin 100,000 unit/gram topical 1 applic topical TID 01/03/24 01/08/24 History powder spironolactone 25 mg tablet 25 mg PO DAILY 01/03/24 01/08/24 History haloperidol 1 mg tablet 1 mg PO BID #60 tabs 01/04/24 01/08/24 Rx valproic acid 250 mg capsule 500 mg (2 x 250 mg) PO TID #180 01/04/24 01/08/24 Rx caps fluticasone furoate 100 1 inh inhalation Q24H 03/07/24 03/07/24 History mcg-vilanterol 25 mcg/dose inhalation powder (Breo Ellipta) lorazepam 0.5 mg tablet mg 03/07/24 History potassium chloride 20 mEq meq PO 03/07/24 History tablet,extended release(part/cryst) Allergies Allergy/AdvReac Type Severity Reaction Status Date / Time No Known Drug Allergies Allergy Verified 01/08/24 19:13 Exam Constitutional Vital Signs, click to edit/add: Last Vital Signs Temp 98.1 F 03/07/24 12:53 Pulse 65 03/07/24 15:01 Resp 18 03/07/24 15:01 BP 130/58 03/07/24 15:01 Pulse Ox 95 03/07/24 15:18 O2 Del Method BIPAP 03/07/24 15:18 O2 Flow Rate 45 03/07/24 15:18 FiO2 30 03/07/24 13:34 Documenting provider has reviewed patient's vital signs: yes Common normals: apparent distress (Patient is sedated) Respiratory Common normals: normal respiratory effort and no retractions Auscultation: lung sounds not diminished Cardio Common normals: regular rate, regular rhythm and no murmurs GI Common normals: Normal to inspection, nondistended, normoactive bowel sounds present, soft to palpation, non-tender, no hepatosplenomegaly and no masses Extremity Common normals: normal to inspection, normal capillary refill and no clubbing, cyanosis or edema Results Labs Labs: Short CBC 03/07/24 Range/Units 13:08 WBC 8.2 (4.0-11.0) 10^3/uL Hgb 13.3 L (14.0-18.0) g/dL Hct 42.8 (42.0-54.0) % Plt Count 204 (150-450) 10^3/uL BMP 03/07/24 13:08 Sodium 148 H Potassium 5.4 H Chloride 102 Carbon Dioxide 38.2 H BUN 73.0 H Creatinine 3.02 H Glucose 156 H Calcium 9.7 ABG ABG results: 03/07/24 13:10 ABG pH 7.379 ABG pCO2 62.3 H* ABG pO2 70.9 L ABG HCO3 36.8 H ABG O2 Saturation 93.9 ABG Base Excess 11.6 H Assessment and Plan Assessment and Plan (1) Respiratory failure: (2) Dementia with behavioral disturbance: (3) Sleep apnea: (4) COPD (chronic obstructive pulmonary disease): (5) Pacemaker: (6) Acute hypoxic respiratory failure: (7) Acute respiratory failure with hypercapnia: (8) Iron deficiency anemia: (9) Hypernatremia: (10) Hyperkalemia: (11) Acute renal failure: (12) Diabetes mellitus: (13) Elevated troponin: (14) Elevated brain natriuretic peptide (BNP) level: (15) Third degree heart block: Plan Admission findings severe hypoxia with significant hypercapnia secondary to possible early pneumonia with aspiration, patient had just been eating a turkey sandwich, resulting in acute exacerbation of COPD resulting in acute hypoxic respiratory and hypercapnic failure. Acute hypoxic respiratory failure secondary to possible aspiration with acute exacerbation of COPD-aerosol treatments, maintain BiPAP, IV antibiotics, low- dose steroids, consult to pulmonology Sleep apnea-while patient is sleeping he should maintain on BiPAP Elevated high-sensitivity troponin likely representing demand ischemia from the acute hypoxic respiratory failure as outlined above Elevated BNP-this is likely secondary to the above as well as combined effect of acute renal failure, echocardiogram done 2 months ago was unremarkable Acute renal failure-baseline creatinine 1.13, 3.0 on admission, but is 267% above baseline Hypernatremia-IV fluid resuscitation Hyperkalemia-IV fluid resuscitation monitor daily Hyperglycemia-insulin sliding scale Dementia-patient for his safety will require soft restraints. May require as needed IV medications or IM medications for again his safety, continue with home medications Red catheter placement for monitoring accurate I's and O's Admission status: Patient will be admitted to the intensive care unit with acute hypoxic respiratory failure with acute hypercapnia. Secondary to acute exacerbation of COPD possibly related to aspiration pneumonia. Medically necessary treatment will span 2 midnights. Inpatient status.
[2024-03-07 16:23] LABS: Troponin I High Sensitivity 145.9 pg/mL (4.0-76.1)
[2024-03-07 16:24] LABS: Lactate/Lactic Acid 2.3 mmol/L (0.4-2.0)
[2024-03-07 16:24] LABS: Magnesium 2.2 mg/dL (1.8-2.4); Thyroid Stimulating Hormone 2.411 uIU/mL (0.358-3.740)
[2024-03-07 16:44] LABS: Lactate/Lactic Acid 2.6 mmol/L (0.4-2.0)
[2024-03-07] MEDS: LACTATED RINGER'S SOLUTION 1,000 ML 100 ML IV (17:25)
[2024-03-07] MEDS: METHYLPREDNISOLONE SOD SUCC PF 125 MG/2 ML VIAL 60 MG IVP (17:28)
[2024-03-07] MEDS: LINEZOLID IN DEXTROSE 5% 600 MG/300 ML PIGGYBACK 300 MG IV (17:29)
[2024-03-07 17:57] LABS: Bilirubin Urine NEGATIVE (NEGATIVE); Blood Urine NEGATIVE (NEGATIVE); Clarity Urine CLEAR (CLEAR); Color Urine YELLOW (YELLOW); Glucose Urine UA NEGATIVE (NEGATIVE); Ketones Urine NEGATIVE (NEGATIVE); Leukocyte Esterase Urine NEGATIVE (NEGATIVE); Nitrite Urine NEGATIVE (NEGATIVE); Protein Urine NEGATIVE (NEG/TRACE); Specific Gravity Urine 1.025 (1.005-1.025); Urobilinogen Urine 0.2 EU/dL (0.2-1.0); pH Urine 5.5 (5.0-9.0)
--- NOTE | 2024-03-07 18:03 | PM.PLCN ---
History of Present Illness History of Present Illness Consult date: 03/07/24 Reason for consult: hypoxemia Chief complaint: SHORTNESS OF BREATH/ GENERAL WEAKNESS AMS Narrative: 78yo male Presents from the with hypoxia.He has underlying dementia and I am unable to obtain any useful information from him. Apparently, he was eating a turkey sandwich and may have aspirated. His saturations decreased to the 70s, and was brought into the emergency room for further evaluation. He was placed on a BiPAP, but was combative and he was placed in restraints. Chest x-ray was clear for any acute infiltrate. ABG shows compensated hypercapnic respiratory failure. He was transferred to the intensive care unit on BiPAP and restraints were removed. He is currently resting comfortably, but is noncommunicative. Review of Systems ROS Status of ROS unobtainable due to medical condition and unobtainable due to mental status [facility] Medical History Laceration of nose ?S01.21XA - Laceration without foreign body of nose, initial encounter (ICD-10) New onset seizure ?R56.9 - Unspecified convulsions (ICD-10) Dementia with behavioral disturbance ?F03.918 - Unspecified dementia, unspecified severity, with other behavioral disturbance (ICD-10) Behavioral problem Sleep apnea ?G47.30 - Sleep apnea, unspecified (ICD-10) COPD (chronic obstructive pulmonary disease) ?J44.9 - Chronic obstructive pulmonary disease, unspecified (ICD-10) Surgical History (Updated 01/03/24 @ 16:01 by Pia Segura LPN) H/O heart artery stent ?Z95.5 - Presence of coronary angioplasty implant and graft (ICD-10) Family History (Updated 01/03/24 @ 16:02 by Pia Segura LPN) Mother Family history of CHF (congestive heart failure) Family history of COPD (chronic obstructive pulmonary disease) Father Family history of CHF (congestive heart failure) Brother Family history of CHF (congestive heart failure) Family history of diabetes mellitus Family history of myocardial infarction Social History (Updated 01/03/24 @ 16:04 by Pia Segura LPN) Within the past year, how often did you have a drink containing alcohol: never Within the past year, how many standard drinks containing alcohol did you have on a typical day: 1 or 2 Within the past year, how often did you have six or more drinks on one occasion: never Total score: 0 Score interpretation: A score less than 4 is consistent with normal alcohol consumption. 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 Known occupational exposures/hazards: No Highest level of school completed/degree received: don't know Do you want help with school or training: No Are you now , , , , never or living with a partner: In a typical week, how many times do you talk on the telephone with family, friends, or neighbors: once per week How often do you get together with friends or relatives: once per week How often do you attend baptism or shinto services: 4 or more times per year Do you belong to any clubs or organizations such as baptism groups unions, [employer] or athletic groups, or school groups: no Total score: 2 Score interpretation: A score of greater than or equal to 2 indicates the lowest level of social isolation. Little interest or pleasure in doing things: not at all Feeling down, depressed, or hopeless: not at all Feel stressed/tense/nervous/anxious/difficulty sleeping: not at all Due to disability, difficulty making decisions: No Do you think of yourself as: straight/heterosexual Gender Identity: male Meds Home Medications and Allergies Home Medications ?Medication ?Instructions ?Recorded ?Confirmed ?Type citalopram 20 mg tablet (Celexa) 20 mg PO DAILY 01/31/23 03/07/24 History furosemide 40 mg tablet 40 mg PO BID 01/31/23 03/07/24 History tamsulosin 0.4 mg capsule (Flomax) 0.8 mg PO .QHS 01/31/23 03/07/24 History albuterol sulfate 2.5 mg/3 mL 2.5 mg inhalation Q6H PRN 01/03/24 03/07/24 History (0.083 %) solution for nebulization shortness of breath or wheezing cetirizine 10 mg tablet (All Day 10 mg PO DAILY PRN allergy symptoms 01/03/24 03/07/24 History Allergy (cetirizine)) cholecalciferol (vitamin D3) 50 50 mcg PO DAILY 01/03/24 03/07/24 History mcg (2,000 unit) tablet nystatin 100,000 unit/gram topical 1 applic topical TID 01/03/24 03/07/24 History powder spironolactone 25 mg tablet 25 mg PO DAILY 01/03/24 03/07/24 History acetaminophen 500 mg tablet 500 mg PO Q6H PRN pain 03/07/24 03/07/24 History aspirin 81 mg chewable tablet 81 mg PO DAILY 03/07/24 03/07/24 History cyanocobalamin (vitamin B-12) 1,000 mcg PO DAILY 03/07/24 03/07/24 History 1,000 mcg tablet (Vitamin B-12) divalproex 500 mg tablet,delayed 500 mg PO TID 03/07/24 03/07/24 History release fluticasone furoate 100 1 inh inhalation .QHS 03/07/24 03/07/24 History mcg-vilanterol 25 mcg/dose inhalation powder (Breo Ellipta) ipratropium 0.5 mg-albuterol 3 mg 3 ml inhalation Q6H 03/07/24 03/07/24 History (2.5 mg base)/3 mL nebulization soln lorazepam 0.5 mg tablet 0.5 mg PO BID PRN anxiety 03/07/24 03/07/24 History lovastatin 40 mg tablet 40 mg PO .QHS 03/07/24 03/07/24 History metformin 500 mg tablet 1,000 mg PO BIDWM 03/07/24 03/07/24 History potassium chloride 20 mEq 20 meq PO DAILY 03/07/24 03/07/24 History tablet,extended release(part/cryst) Allergies Allergy/AdvReac Type Severity Reaction Status Date / Time No Known Drug Allergies Allergy Verified 01/08/24 19:13 Exam Constitutional Vital Signs, click to edit/add: Last Vital Signs Temp 98.4 F 03/07/24 16:15 Pulse 70 03/07/24 17:58 Resp 21 H 03/07/24 17:10 BP 141/67 03/07/24 16:15 Pulse Ox 96 03/07/24 17:10 O2 Del Method BIPAP 03/07/24 16:15 O2 Flow Rate 45 03/07/24 15:18 FiO2 30 03/07/24 18:01 Documenting provider has reviewed patient's vital signs: yes Common normals: no apparent distress [facility] Other: Wearing BiPAP Chest Common normals: inspection of chest normal Respiratory Other: Breath sounds are diminished but clear to auscultation anteriorly. Cardio Other: Ectopy noted on telemetry GI Common normals: Normal to inspection, nondistended, normoactive bowel sounds present Bladder/kidney exam: catheter in place Catheter type (Male): urethral Extremity Other: Wearing SANDIP hose Neuro Motor exam: no tremor noted and no fasciculations Psych Other: Noncommunicative Results Laboratory Findings ABG, PT/INR, D-dimer: ABG ABG pH 7.379 (7.350-7.450) 03/07/24 13:10 ABG pCO2 62.3 mmHg (35.0-45.0) H* 03/07/24 13:10 ABG pO2 70.9 mmHg (80.0-100.0) L 03/07/24 13:10 ABG O2 Saturation 93.9 % 03/07/24 13:10 Abnormal lab findings: Abnormal Labs 03/07/24 03/07/24 03/07/24 13:08 13:10 14:29 RBC 4.52 L Hgb 13.3 L MCV 94.7 H RDW 16.9 H Lymph % (Auto) 16.2 L [place] # (Auto) 0.9 H Abs Immat Gran (auto) 0.37 H Imm/Tot Granulo (auto) 4.5 H ABG pCO2 62.3 H* ABG pO2 70.9 L ABG HCO3 36.8 H ABG Base Excess 11.6 H Sodium 148 H Potassium 5.4 H Carbon Dioxide 38.2 H BUN 73.0 H Creatinine 3.02 H Est GFR ( Amer) 24 L Est GFR (Non-Af Amer) 20 L Glucose 156 H Lactate 2.3 H* Troponin I High Sens 149.1 H* 155.0 H* NT-Pro-B Natriuret Pep 39463.0 H* 03/07/24 15:55 RBC Hgb MCV RDW Lymph % (Auto) [place] # (Auto) Abs Immat Gran (auto) Imm/Tot Granulo (auto) ABG pCO2 ABG pO2 ABG HCO3 ABG Base Excess Sodium Potassium Carbon Dioxide BUN Creatinine Est GFR ( Amer) Est GFR (Non-Af Amer) Glucose Lactate 2.6 H* Troponin I High Sens 145.9 H* NT-Pro-B Natriuret Pep Assessment and Plan Assessment and Plan (1) Acute on chronic hypoxic respiratory failure: Assessment and Plan: 1. Acute aspiration pneumonitis. Presumptive secondary to turkey sandwich. No current evidence of pneumonia. There is no leukocytosis. Lactic acid is elevated likely secondary to hypoxia, causing shift of metabolism to anaerobic. Technically can observe off antibiotics at this current time. 2. Acute on chronic hypoxic respiratory failure. Acute secondary to the acute aspiration pneumonitis. Patient does have chronic hypercapnic respiratory failure, so goal SpO2 is 88 to 92%. 3. Chronic hypercapnic respiratory failure. Patient's acid-base status compensated on admission with a pH of approximately 73.7 and pCO2 of 62; also evidenced by serum bicarb of approximately 38. Patient was initially placed on a BiPAP with restraints. Restraints should be avoided at all costs while on PAP/NIV. If patient is having aggressive demeanor or combative, can replace BiPAP with Vapotherm which can be compatible with restraints. 4. Obstructive sleep apnea. Patient apparently is on CPAP at home. If he has hypercapnic respiratory failure, BiPAP may be a better choice. There reports that he is noncompliant with the PAP. With his underlying dementia, there may be nothing we can do about that at this time. 5. Lactic acidosis, type a secondary to hypoxia. I do not see any current evidence for sepsis otherwise. He does not have a fever, there is no leukocytosis present. 6. Dementia with behavioral disorders. As above, if he requires restraints, BiPAP should be removed and Vapotherm utilized if necessary, otherwise use nasal cannula at traditional flows.
[2024-03-07 18:04] LABS: RBC Urine 0-2 #/HPF (0-2)
[2024-03-07 18:05] LABS: Bacteria Urine TRACE #/HPF (NONE SEEN); Cast Seen? SEEN #/LPF (NONE SEEN); Crystals Seen? None Seen #/HPF (None Seen); Hyaline Casts Urine FEW; Mucus Urine NONE SEEN (NONE SEEN); Squamous Epithelial Cell Urine RARE #/LPF (NONE/RARE)
[2024-03-07 19:05] LABS: Troponin I High Sensitivity 134.9 pg/mL (4.0-76.1)
[2024-03-07] MEDS: PANTOPRAZOLE SODIUM 40 MG VIAL IV (19:18)
[2024-03-07] MEDS: PIPERACILLIN SODIUM/TAZOBACTAM 3.375 GM in 0.9 % SODIUM CHLORIDE 50 ML IV (19:19)
[2024-03-07] MEDS: NYSTATIN 15 GM POWDER 1 APPLIC TOPICAL (21:21)
[2024-03-07 21:24] LABS: Glucometer 129 mg/dL (74-106)
[2024-03-07] MEDS: IPRATROPIUM/ALBUTEROL SULFATE 3 ML AMPUL.NEB IH (22:01)
--- NOTE | 2024-03-07 23:57 | PC.NURSE ---
Patient with eyes open. Moving arms on his own. Patient attempted to remove his gown and dislodged his IV from left upper arm. Patient does not respond verbally to questions or interactions with staff. Patient occasionally makes moaning noise, no recognizable words noted. Does not maintain eye contact with staff. Moves feet up and down on his own.
[2024-03-08] VITALS (35 sets, daily range): BP systolic 92–131; BP diastolic 42–108; PULSE 52–85; RESP 20; TEMP 36.6–37.2; O2SAT 73–97
[2024-03-08] MEDS: METHYLPREDNISOLONE SOD SUCC PF 125 MG/2 ML VIAL 60 MG IVP ×4 (00:32→17:08)
[2024-03-08] MEDS: LACTATED RINGER'S SOLUTION 1,000 ML 100 ML IV ×3 (04:08→21:50)
[2024-03-08] MEDS: IPRATROPIUM/ALBUTEROL SULFATE 3 ML AMPUL.NEB IH ×4 (04:28→23:14)
[2024-03-08] MEDS: LINEZOLID IN DEXTROSE 5% 600 MG/300 ML PIGGYBACK 300 MG IV (05:26)
[2024-03-08 05:40] LABS: Hematocrit 40.5 % (42.0-54.0); Hemoglobin 12.7 g/dL (14.0-18.0); Mean Corpuscular HGB Conc 31.4 g/dL (29.9-35.2); Mean Corpuscular Hemoglobin 29.2 pg (25.9-34.0); Mean Corpuscular Volume 93.1 fL (80.0-94.0); Mean Platelet Volume 10.6 fL (9.5-13.5); Platelet Count 206 10^3/uL (150-450); Red Blood Count 4.35 10^6/uL (4.70-6.10); Red Cell Distribution Width 16.4 % (11.0-15.0); White Blood Count 8.4 10^3/uL (4.0-11.0)
[2024-03-08 05:41] LABS: PCO2 VBG 53.8 mmHg (40.0-52.0); pH VBG 7.423 (7.330-7.430)
[2024-03-08] MEDS: DIVALPROEX SODIUM 500 MG TABLET.DR PO ×3 (05:42→21:49)
[2024-03-08 06:09] LABS: Alanine Aminotransferase 17 U/L (16-63); Albumin Globulin Ratio 0.6; Albumin Level 2.4 g/dL (3.4-5.0); Alkaline Phosphatase 37 U/L (46-116); Anion Gap 14.4; Aspartate Amino Transferase 14 U/L (15-37); BUN Creatinine Ratio 26.6; Bilirubin Total 0.4 mg/dL (0.2-1.0); Calcium 9.5 mg/dL (8.5-10.1); Carbon Dioxide 34.3 mmol/L (21.0-32.0); Chloride 104 mmol/L (98-107); Estimated GFR (African America 29 (>=60 mL/min/1.73m^2); Estimated GFR (Non-African Ame 24 (>=60 mL/min/1.73m^2); Globulin 4.3 g/dL; Glucose 165 mg/dL (74-106); Potassium 4.7 mmol/L (3.5-5.1); Sodium 148 mmol/L (136-145); Total Protein 6.7 g/dL (6.4-8.2); Troponin I High Sensitivity 72.7 pg/mL (4.0-76.1)
[2024-03-08 06:17] LABS: Atypical Lymphocytes Abs Man 0.42; Lymphocytes Absolute Manual 0.16 10^3/uL (1.20-3.80); Monocytes Absolute Manual 0.08 10^3/uL (0.30-0.80); Segmented Neut Absolute Manual 7.72 10^3/uL (1.4-6.5)
--- NOTE | 2024-03-08 07:11 | PM.PLPN ---
Progress Note: A&P Assessment and Plan (1) Acute on chronic hypoxic respiratory failure: Assessment and Plan: 1. Acute aspiration pneumonitis. Presumptive secondary to turkey sandwich. No current evidence of pneumonia. Patient remains afebrile. Patient was placed on antibiotics prophylactically. 2. Acute on chronic hypoxic respiratory failure. Acute secondary to the acute aspiration pneumonitis. Improved - weaned to 2L/min O2 with SpO2 ~89-91%. Goal SpO2 is 88-92% to avoid hyperoxic-induced hypercapnia. 3. Chronic hypercapnic respiratory failure. VBG/BMP reviewed this AM: pH 7.423, pCO2 53.8, HCO3- 34.3. BiPAP can be used @ HS & PRN dyspnea - does not require scheduled use throughout the day. Avoid restraints with PAP use. 4. Obstructive sleep apnea. 5. Lactic acidosis, type a secondary to hypoxia. 6. Dementia with behavioral disorders. Plan Acute respiratory issues have improved. Will follow PRN at this point. Subjective Subjective Interval history: No significant events overnight. Weaned from BiPAP to 2L/min O2. Labs reviewed. Discussed with Dr. Brown. Exam Constitutional Vital Signs, click to edit/add: Last Vital Signs Temp 98.7 F 03/07/24 19:37 Pulse 60 03/08/24 06:00 Resp 22 H 03/08/24 04:28 BP 111/77 03/08/24 04:00 Pulse Ox 92 L 03/08/24 04:28 O2 Del Method Nasal Cannula 03/08/24 04:28 O2 Flow Rate 2 03/08/24 04:28 FiO2 25 03/08/24 02:40 Documenting provider has reviewed patient's vital signs: yes Common normals: no apparent distress [facility] Other: Wearing nasal cannula Chest Common normals: inspection of chest normal Chest: symmetrical chest wall rise Respiratory Common normals: normal respiratory effort, no use of accessory muscles and clear to auscultation bilaterally Cardio Other: Irregularly irregular GI Inspection: normal to inspection Extremity Other: Wearing SANDIP hose Neuro Motor exam: no tremor noted and no fasciculations
--- NOTE | 2024-03-08 07:17 | PM.PLHP ---
History of Present Illness History of Present Illness Chief complaint: SHORTNESS OF BREATH/ GENERAL WEAKNESS AMS [facility] Medical History (Updated 03/07/24 @ 23:21 by Ky Galindo) Difficulty walking ?R26.2 - Difficulty in walking, not elsewhere classified (ICD-10) Pulmonary HTN ?I27.20 - Pulmonary hypertension, unspecified (ICD-10) Cognitive communication deficit ?R41.841 - Cognitive communication deficit (ICD-10) Agitation due to dementia ?F03.911 - Unspecified dementia, unspecified severity, with agitation (ICD-10) Anxiety ?F41.9 - Anxiety disorder, unspecified (ICD-10) BENJAMIN (obstructive sleep apnea) ?G47.33 - Obstructive sleep apnea (adult) (pediatric) (ICD-10) HLD (hyperlipidemia) ?E78.5 - Hyperlipidemia, unspecified (ICD-10) BPH (benign prostatic hyperplasia) ?N40.0 - Benign prostatic hyperplasia without lower urinary tract symptoms (ICD-10) Alzheimer dementia ?G30.9 - Alzheimer's disease, unspecified (ICD-10) ?F02.80 - Dementia in other diseases classified elsewhere, unspecified severity, without behavioral disturbance, psychotic disturbance, mood disturbance, and anxiety (ICD-10) Recurrent falls ?R29.6 - Repeated falls (ICD-10) Viral pneumonia ?J12.9 - Viral pneumonia, unspecified (ICD-10) Dysphagia ?R13.10 - Dysphagia, unspecified (ICD-10) Diverticulitis ?K57.92 - Diverticulitis of intestine, part unspecified, without perforation or abscess without bleeding (ICD-10) Seasonal allergic rhinitis ?J30.2 - Other seasonal allergic rhinitis (ICD-10) CAD (coronary artery disease) ?I25.10 - Atherosclerotic heart disease of [place] coronary artery without angina pectoris (ICD-10) PVD (peripheral vascular disease) ?I73.9 - Peripheral vascular disease, unspecified (ICD-10) Chronic diastolic heart failure ?I50.32 - Chronic diastolic (congestive) heart failure (ICD-10) Pacemaker ?Z95.0 - Presence of cardiac pacemaker (ICD-10) Laceration of nose ?S01.21XA - Laceration without foreign body of nose, initial encounter (ICD-10) New onset seizure ?R56.9 - Unspecified convulsions (ICD-10) Dementia with behavioral disturbance ?F03.918 - Unspecified dementia, unspecified severity, with other behavioral disturbance (ICD-10) Behavioral problem Sleep apnea ?G47.30 - Sleep apnea, unspecified (ICD-10) COPD (chronic obstructive pulmonary disease) ?J44.9 - Chronic obstructive pulmonary disease, unspecified (ICD-10) Surgical History (Updated 03/07/24 @ 23:21 by Ky Galindo) History of permanent cardiac pacemaker placement ?Z95.0 - Presence of cardiac pacemaker (ICD-10) H/O heart artery stent ?Z95.5 - Presence of coronary angioplasty implant and graft (ICD-10) Family History (Updated 01/03/24 @ 16:02 by Pia Segura LPN) Mother Family history of CHF (congestive heart failure) Family history of COPD (chronic obstructive pulmonary disease) Father Family history of CHF (congestive heart failure) Brother Family history of CHF (congestive heart failure) Family history of diabetes mellitus Family history of myocardial infarction Social History (Updated 01/03/24 @ 16:04 by Pia Segura LPN) Within the past year, how often did you have a drink containing alcohol: never Within the past year, how many standard drinks containing alcohol did you have on a typical day: 1 or 2 Within the past year, how often did you have six or more drinks on one occasion: never Total score: 0 Score interpretation: A score less than 4 is consistent with normal alcohol consumption. 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 Known occupational exposures/hazards: No Highest level of school completed/degree received: don't know Do you want help with school or training: No Are you now , , , , never or living with a partner: In a typical week, how many times do you talk on the telephone with family, friends, or neighbors: once per week How often do you get together with friends or relatives: once per week How often do you attend shinto or tenriism services: 4 or more times per year Do you belong to any clubs or organizations such as shinto groups unions, fraternal or athletic groups, or school groups: no Total score: 2 Score interpretation: A score of greater than or equal to 2 indicates the lowest level of social isolation. Little interest or pleasure in doing things: not at all Feeling down, depressed, or hopeless: not at all Feel stressed/tense/nervous/anxious/difficulty sleeping: not at all Due to disability, difficulty making decisions: No Do you think of yourself as: straight/heterosexual Gender Identity: male Meds Home Medications and Allergies Home Medications ?Medication ?Instructions ?Recorded ?Confirmed ?Type citalopram 20 mg tablet (Celexa) 20 mg PO DAILY 01/31/23 03/07/24 History furosemide 40 mg tablet 40 mg PO BID 01/31/23 03/07/24 History tamsulosin 0.4 mg capsule (Flomax) 0.8 mg PO .QHS 01/31/23 03/07/24 History albuterol sulfate 2.5 mg/3 mL 2.5 mg inhalation Q6H PRN 01/03/24 03/07/24 History (0.083 %) solution for nebulization shortness of breath or wheezing cetirizine 10 mg tablet (All Day 10 mg PO DAILY PRN allergy symptoms 01/03/24 03/07/24 History Allergy (cetirizine)) cholecalciferol (vitamin D3) 50 50 mcg PO DAILY 01/03/24 03/07/24 History mcg (2,000 unit) tablet nystatin 100,000 unit/gram topical 1 applic topical TID 01/03/24 03/07/24 History powder spironolactone 25 mg tablet 25 mg PO DAILY 01/03/24 03/07/24 History acetaminophen 500 mg tablet 500 mg PO Q6H PRN pain 03/07/24 03/07/24 History aspirin 81 mg chewable tablet 81 mg PO DAILY 03/07/24 03/07/24 History cyanocobalamin (vitamin B-12) 1,000 mcg PO DAILY 03/07/24 03/07/24 History 1,000 mcg tablet (Vitamin B-12) divalproex 500 mg tablet,delayed 500 mg PO TID 03/07/24 03/07/24 History release fluticasone furoate 100 1 inh inhalation .QHS 03/07/24 03/07/24 History mcg-vilanterol 25 mcg/dose inhalation powder (Breo Ellipta) ipratropium 0.5 mg-albuterol 3 mg 3 ml inhalation Q6H 03/07/24 03/07/24 History (2.5 mg base)/3 mL nebulization soln lorazepam 0.5 mg tablet 0.5 mg PO BID PRN anxiety 03/07/24 03/07/24 History lovastatin 40 mg tablet 40 mg PO .QHS 03/07/24 03/07/24 History metformin 500 mg tablet 1,000 mg PO BIDWM 03/07/24 03/07/24 History potassium chloride 20 mEq 20 meq PO DAILY 03/07/24 03/07/24 History tablet,extended release(part/cryst) Allergies Allergy/AdvReac Type Severity Reaction Status Date / Time No Known Drug Allergies Allergy Verified 01/08/24 19:13 Exam Constitutional Vital Signs, click to edit/add: Last Vital Signs Temp 98.7 F 03/07/24 19:37 Pulse 60 03/08/24 06:00 Resp 22 H 03/08/24 04:28 BP 111/77 03/08/24 04:00 Pulse Ox 92 L 03/08/24 04:28 O2 Del Method Nasal Cannula 03/08/24 04:28 O2 Flow Rate 2 03/08/24 04:28 FiO2 25 03/08/24 02:40 Results Laboratory Findings ABG, PT/INR, D-dimer: ABG ABG pH 7.379 (7.350-7.450) 03/07/24 13:10 ABG pCO2 62.3 mmHg (35.0-45.0) H* 03/07/24 13:10 ABG pO2 70.9 mmHg (80.0-100.0) L 03/07/24 13:10 ABG O2 Saturation 93.9 % 03/07/24 13:10 Abnormal lab findings: Abnormal Labs 03/07/24 03/07/24 03/07/24 13:08 13:10 14:29 RBC 4.52 L Hgb 13.3 L Hct MCV 94.7 H RDW 16.9 H Lymph % (Auto) 16.2 L [place] # (Auto) 0.9 H Abs Immat Gran (auto) 0.37 H Seg Neuts % (Manual) Lymphocytes % (Manual) Monocytes % (Manual) Eosinophils % (Manual) Basophils % (Manual) Imm/Tot Granulo (auto) 4.5 H Neutrophils # (Manual) Lymphocytes # (Manual) Monocytes # (Manual) ABG pCO2 62.3 H* ABG pO2 70.9 L ABG HCO3 36.8 H ABG Base Excess 11.6 H VBG pCO2 Sodium 148 H Potassium 5.4 H Carbon Dioxide 38.2 H BUN 73.0 H Creatinine 3.02 H Est GFR ( Amer) 24 L Est GFR (Non-Af Amer) 20 L Glucose 156 H Lactate 2.3 H* AST Alkaline Phosphatase Troponin I High Sens 149.1 H* 155.0 H* NT-Pro-B Natriuret Pep 63153.0 H* Albumin Urine WBC Urine Bacteria Urine Casts POC Glucose 03/07/24 03/07/24 03/07/24 15:55 17:00 18:40 RBC Hgb Hct MCV RDW Lymph % (Auto) [place] # (Auto) Abs Immat Gran (auto) Seg Neuts % (Manual) Lymphocytes % (Manual) Monocytes % (Manual) Eosinophils % (Manual) Basophils % (Manual) Imm/Tot Granulo (auto) Neutrophils # (Manual) Lymphocytes # (Manual) Monocytes # (Manual) ABG pCO2 ABG pO2 ABG HCO3 ABG Base Excess VBG pCO2 Sodium Potassium Carbon Dioxide BUN Creatinine Est GFR ( Amer) Est GFR (Non-Af Amer) Glucose Lactate 2.6 H* AST Alkaline Phosphatase Troponin I High Sens 145.9 H* 134.9 H* NT-Pro-B Natriuret Pep Albumin Urine WBC 2-5 A Urine Bacteria Trace A Urine Casts Seen A POC Glucose 03/07/24 03/08/24 21:23 05:17 RBC 4.35 L Hgb 12.7 L Hct 40.5 L MCV RDW 16.4 H Lymph % (Auto) [place] # (Auto) Abs Immat Gran (auto) Seg Neuts % (Manual) 92.0 H Lymphocytes % (Manual) 2.0 L Monocytes % (Manual) 1.0 L Eosinophils % (Manual) 0.0 L Basophils % (Manual) 0.0 L Imm/Tot Granulo (auto) Neutrophils # (Manual) 7.72 H Lymphocytes # (Manual) 0.16 L Monocytes # (Manual) 0.08 L ABG pCO2 ABG pO2 ABG HCO3 ABG Base Excess VBG pCO2 53.8 H Sodium 148 H Potassium Carbon Dioxide 34.3 H BUN 69.0 H Creatinine 2.59 H Est GFR ( Amer) 29 L Est GFR (Non-Af Amer) 24 L Glucose 165 H Lactate AST 14 L Alkaline Phosphatase 37 L Troponin I High Sens NT-Pro-B Natriuret Pep 33562.0 H* Albumin 2.4 L Urine WBC Urine Bacteria Urine Casts POC Glucose 129 H Assessment and Plan Assessment and Plan (1) Acute on chronic hypoxic respiratory failure: Assessment and Plan: 1. Acute aspiration pneumonitis. Presumptive secondary to turkey sandwich. No current evidence of pneumonia. There is no leukocytosis. Lactic acid is elevated likely secondary to hypoxia, causing shift of metabolism to anaerobic. Technically can observe off antibiotics at this current time. 2. Acute on chronic hypoxic respiratory failure. Acute secondary to the acute aspiration pneumonitis. Patient does have chronic hypercapnic respiratory failure, so goal SpO2 is 88 to 92%. 3. Chronic hypercapnic respiratory failure. Patient's acid-base status compensated on admission with a pH of approximately 73.7 and pCO2 of 62; also evidenced by serum bicarb of approximately 38. Patient was initially placed on a BiPAP with restraints. Restraints should be avoided at all costs while on PAP/NIV. If patient is having aggressive demeanor or combative, can replace BiPAP with Vapotherm which can be compatible with restraints. 4. Obstructive sleep apnea. Patient apparently is on CPAP at home. If he has hypercapnic respiratory failure, BiPAP may be a better choice. There reports that he is noncompliant with the PAP. With his underlying dementia, there may be nothing we can do about that at this time. 5. Lactic acidosis, type a secondary to hypoxia. I do not see any current evidence for sepsis otherwise. He does not have a fever, there is no leukocytosis present. 6. Dementia with behavioral disorders. As above, if he requires restraints, BiPAP should be removed and Vapotherm utilized if necessary, otherwise use nasal cannula at traditional flows.
[2024-03-08 07:40] LABS: Glucometer 216 mg/dL (74-106)
[2024-03-08] MEDS: PIPERACILLIN SODIUM/TAZOBACTAM 3.375 GM in 0.9 % SODIUM CHLORIDE 50 ML IV ×2 (07:54→19:38)
--- NOTE | 2024-03-08 08:34 | P.PN_ITS ---
Progress Note: Subjective Subjective Interval history: Patient is somewhat difficult to arouse but is early in the day. Had a difficult night with difficulty sleeping Exam Constitutional Vital Signs, click to edit/add: Last Vital Signs Temp 99.0 F 03/08/24 07:25 Pulse 68 03/08/24 08:00 Resp 20 03/08/24 07:03 BP 107/42 L 03/08/24 07:03 Pulse Ox 89 L 03/08/24 07:03 O2 Del Method Nasal Cannula 03/08/24 07:25 O2 Flow Rate 2 03/08/24 08:00 FiO2 25 03/08/24 02:40 Documenting provider has reviewed patient's vital signs: yes Common normals: apparent distress (Patient is sedated) Respiratory Common normals: normal respiratory effort and no retractions Auscultation: diminished lung sounds Cardio Common normals: regular rate, regular rhythm and no murmurs GI Common normals: Normal to inspection, nondistended, normoactive bowel sounds present, soft to palpation, non-tender, no hepatosplenomegaly and no masses Extremity Common normals: normal to inspection, normal capillary refill and no clubbing, cyanosis or edema Neuro Common normals: moves all extremities Progress Note: Objective Labs Labs: Short CBC 03/07/24 03/08/24 Range/Units 13:08 05:17 WBC 8.2 8.4 (4.0-11.0) 10^3/uL Hgb 13.3 L 12.7 L (14.0-18.0) g/dL Hct 42.8 40.5 L (42.0-54.0) % Plt Count 204 206 (150-450) 10^3/uL BMP 03/07/24 03/08/24 13:08 05:17 Sodium 148 H 148 H Potassium 5.4 H 4.7 Chloride 102 104 Carbon Dioxide 38.2 H 34.3 H BUN 73.0 H 69.0 H Creatinine 3.02 H 2.59 H Glucose 156 H 165 H Calcium 9.7 9.5 Liver Function 03/08/24 Range/Units 05:17 Total Bilirubin 0.4 (0.2-1.0) mg/dL AST 14 L (15-37) U/L ALT 17 (16-63) U/L Alkaline Phosphatase 37 L (46-116) U/L Albumin 2.4 L (3.4-5.0) g/dL Urine 03/07/24 Range/Units 17:00 Urine Color Yellow (YELLOW) Urine Clarity Clear (CLEAR) Urine pH 5.5 (5.0-9.0) Ur Specific [place] 1.025 (1.005-1.025) Urine Protein Negative (NEG/TRACE) mg/dL Urine Glucose (UA) Negative (NEGATIVE) mg/dL Progress Note: A&P Assessment and Plan (1) Acute on chronic hypoxic respiratory failure: Plan Admission findings severe hypoxia with significant hypercapnia secondary to possible early pneumonia with aspiration with lactic acidosis, patient had just been eating a turkey sandwich, resulting in acute exacerbation of COPD resulting in acute hypoxic respiratory and hypercapnic failure. Acute hypoxic respiratory failure secondary to aspiration with acute exacerbation of COPD-aerosol treatments, maintain BiPAP, IV antibiotics, low- dose steroids, consult to pulmonology-appreciate input by pulmonology, maintain current treatment plan is overall is improving. Able to wean his supplemental oxygen overnight. Maintain antibiotics with Zosyn, patient has no elevation in his white blood cell count but does have a significant left shift consistent with a bacterial process Sleep apnea-while patient is sleeping he should maintain on BiPAP Elevated high-sensitivity troponin likely representing demand ischemia from the acute hypoxic respiratory failure as outlined above-consider outpatient stress test-repeat echocardiogram to assess wall motion Elevated BNP-this is likely secondary to the above as well as combined effect of acute renal failure, echocardiogram done 2 months ago was unremarkable-repeat echocardiogram to assess wall motion Acute renal failure-baseline creatinine 1.13, 3.0 on admission, but is 267% above baseline-overall improving today. Maintain fluid resuscitation slowly Hypernatremia-IV fluid resuscitation-slowly improving Hyperkalemia-IV fluid resuscitation monitor daily-resolved Hyperglycemia-insulin sliding scale Dementia-patient for his safety will require soft restraints. Maintain current treatment plan Red catheter placement for monitoring accurate I's and O's Admission status: Patient will be admitted to the intensive care unit with acute hypoxic respiratory failure with acute hypercapnia. Secondary to acute exacerbation of COPD possibly related to aspiration pneumonia. Medically necessary treatment will span 2 midnights. Inpatient status. Urinary Catheter Management Urinary Catheter Management Urethral: Cath placed during this visit: yes Urethral indwelling: Yes Reason for continuing: measure accurate output Insertion date: 03/07/24 Insertion time: 16:41
--- NOTE | 2024-03-08 08:35 | CA_ITS ---
Patient Name: CLYDE MARINA MR#: [id number] : 1945 Exam Date: 03/08/2024 Ordering Doctor: DR Kristofer Brown . ECHOCARDIOGRAM REPORT PROCEDURE: CA ECHO LIMITED INDICATIONS: elevated bnp, trop COMPARISON: None. DESCRIPTION: Limited ECHOCARDIOGRAM Real-time transthoracic echocardiography with 2D and M-mode performed. QUALITY: Technical quality was adequate. LEFT VENTRICLE: Normal chamber size. Moderate concentric left ventricular hypertrophy. Abnormal septal motion likely due to bundle branch block. Global left ventricular systolic function is mildly decreased. LV EF: Visual estimation of left ventricular ejection fraction is 45-50%. DIASTOLIC: ATRIAL SEPTUM: LEFT ATRIUM: Moderate dilatation. RIGHT ATRIUM: Moderate dilatation. RIGHT VENTRICLE: Normal chamber size. Normal right ventricular systolic function. TRICUSPID VALVE: Normal mobility and thickness. MITRAL VALVE: Mildly thickened with normal mobility. Severe mitral annular calcification. AORTIC VALVE: Normal leaflet mobility. AORTIC ROOT: Normal diameter and appearance. PULMONIC VALVE: Not well visualized. PERICARDIUM: No evidence of pericardial effusion. IVC: Collapses with inspirations. Normal size. PLEURA: CONCLUSION: 1. Moderate concentric ventricular hypertrophy with mildly decreased systolic function. LVEF is estimated at 45 to 50%. 2. Normal right ventricular size and systolic function. 3. Moderate biatrial dilatation. 4. No pericardial effusion. 5. Limited study performed with no Doppler interrogation as requested. Adult Echocardiography Procedure Report Left Ventricle LVEDD (3.7 - 5.6 cm): 5.10 cm LVESD (2.2 - 4.0 cm): 3.96 cm LVIVS thickness (0.6 - 1.2 cm): 1.46 cm LVPW thickness (0.5 - 1.0 cm): 1.37 cm LVOT Diameter 2.08 cm Left Ventricular Ejection Fraction: 45-50 % Left Atrium LA Volume Index (2D A2C): 40.39 ml/m2 Left Atrium Systolic Dimension: 4.01 cm Mitral Valve Right Ventricle RV Internal Diastolic Dimension: 2.98 cm Aorta AO Root Diam: 3.58 cm Ascending Ao Diam: 2.93 cm Aortic Valve Tricuspid Valve Pulmonic Valve Right Atrium Right Atrium Systolic Pressure: 60.29 ml, 60.29 ml Dictated by: Jermaine Valenzuela M.D. on 03/09/2024 at 16:52 Approved by: Jermaine Valenzuela M.D. on 03/09/2024 at 16:55
--- NOTE | 2024-03-08 08:37 | XR_ITS ---
The [address] [address] Patient Name: CLYDE MARINA MRN: [id number] date: 1945 Sex: M Assigned Patient Location: ICU Current Patient Location: ICU Accession/Order Number: [id number] Exam Date: 03/08/2024 08:45 Report Date: 03/08/2024 09:06 At the request of: ELISEO SANDOVAL Procedure: XR chest 1V EXAM: XR chest 1V HISTORY: aspiration pneumonia COMPARISON: 03/07/2024 TECHNIQUE: AP portable erect FINDINGS: LUNGS: No significant pulmonary parenchymal abnormalities. Low lung volumes VASCULATURE: No increased pulmonary vasculature. PLEURA: No pneumothorax, effusion, or pleural thickening. CARDIAC: No cardiomegaly or cardiac silhouette abnormality. MEDIASTINUM: No visible mass or adenopathy. Aortic atherosclerosis. Left pacemaker BONES: No fracture or visible bone lesion. OTHER: Negative. XR/XR chest 1V IMPRESSION: No acute cardiopulmonary process Electronically authenticated by: MIS ALVAREZ Date: 03/08/2024 09:06
--- NOTE | 2024-03-08 09:05 | CM.NOTE ---
Rounds made with Dr. Brown. Consult with Pulmonology obtained. Continue with current treatment plan.
[2024-03-08] MEDS: ASPIRIN 81 MG TAB.CHEW PO (09:41)
[2024-03-08] MEDS: METFORMIN HCL 500 MG TABLET 1000 MG PO ×2 (09:41→17:08)
--- NOTE | 2024-03-08 09:53 | W.PM.WC ---
Wound Consult Note Assessment and Plan (1) Acute on chronic hypoxic respiratory failure: Plan Consult: Coccyx ulceration Patient admitted from the [facility] with an open spot on his coccyx. Upon assessment, patient was found to have been incontinent of soft brown stool. Assisted bedside nurse with perineal cleansing and assessment of skin. Patient has an area to his sacral/coccyx area that is reddened and wrinkle from incontinence brief with a small abrasion/shear type opening to his coccyx. This area is partial thickness, irregular shaped, measuring approximately 0.2cmx0.1cmx0.1cm. Surrounding this opening is darker pink skin that is slow to radha but intact. This area is most likely from moisture with a pressure component. Orders placed in chart to apply thin layer of judit barrier ointment as needed. Patient with bilateral lower leg gi hose in place and heels off bed on pillows. Heels are intact, pink, blanches however tissue is slightly boggy. Heels to be monitored for potential skin breakdown. Recommendations: Reposition patient frequently Air mattress overlay to bed, may fold under mattress at foot of the bed to create area to float heels or continue to use pillows at calves to float heels Do not layer underpads as this creates too much heat, increasing skin moisture Thin layer of judit barrier ointment to sacral/coccyx area daily and as needed for after cleansing Monitor heels skin integrity Photo in chart. Orders in chart. Please call [phone] with any questions or concerns. Ronaldo Kapoor RN, CWON
--- NOTE | 2024-03-08 11:28 | SWNOTE1 ---
Pt is from [facility] detention. MARGARET spoke to Cortney from [facility]. 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 She did voice he has had a significant decline in the past month or so. She stated her daughter does not come see them at all. The ENERGY PROJECT MANAGER at [facility] tried to have a conversation with daughter about code status, but she did not want to chance his code status. Cortney voiced she may want to try to skill him due to the decline. MARGARET did read the PT note to her and will send over referral. Pt was not able to do much with therapy and it was documented he was at baseline. Referral sent to [facility]. Referral included face sheet, ED note, H&P, provider notes, case management report,, nursing notes, diagnostic imaging, med list, and PT/OT notes. If pt is ready to discharge back before precert returns, he will return detention.
[2024-03-08 11:46] LABS: Glucometer 159 mg/dL (74-106)
[2024-03-08] MEDS: INSULIN ASPART 300 UNIT/3 ML PEN SUBQ ×3 (11:51→21:50)
--- NOTE | 2024-03-08 13:03 | SWNOTE1 ---
Important Message from Medicare reviewed and discussed with patient's daughter over the phone. Pt's daughter verbalized understanding and SW signed the form that it was reviewed with daughter. Original placed in pt's room and copy placed in patient?s chart. SW spoke with daughter over the phone. She has voiced her concerns to [facility] as to how and why the let pt's pulse ox get so low and that they had stuff over there to monitor that. Daughter still plans on pt returning to [facility] at discharge. She stated her mom used to care for him at home, but she fell bad rural carrier her hip and they were both placed at [facility] together. Daughter voiced she is going to try and stop here after work before she has to go to classes, if not she will be in tomorrow morning.
[2024-03-08] MEDS: NYSTATIN 15 GM POWDER 1 APPLIC TOPICAL (13:56)
--- NOTE | 2024-03-08 14:51 | SWNOTE1 ---
MARGARET received a fax from [facility] and pt is approved to go to [facility] skilled. MARGARET also received a call from Krystle at [facility] and they received approval as well. SW let nurse and doctor know.
[2024-03-08 17:12] LABS: Glucometer 207 mg/dL (74-106)
[2024-03-08] MEDS: PANTOPRAZOLE SODIUM 40 MG VIAL IV (19:39)
[2024-03-08 21:49] LABS: Glucometer 174 mg/dL (74-106)
[2024-03-08] MEDS: ATORVASTATIN CALCIUM 10 MG TABLET PO (21:49)
[2024-03-08] MEDS: TAMSULOSIN HCL 0.4 MG CAPSULE 0.8 MG PO (21:49)
[2024-03-09] VITALS (13 sets, daily range): BP systolic 89–103; BP diastolic 58–63; PULSE 60–78; TEMP 36.4–36.9; O2SAT 85–96
[2024-03-09] MEDS: NYSTATIN 15 GM POWDER 1 APPLIC TOPICAL ×2 (00:47→06:36)
[2024-03-09] MEDS: METHYLPREDNISOLONE SOD SUCC PF 125 MG/2 ML VIAL 60 MG IVP ×2 (00:48→06:35)
[2024-03-09 05:35] LABS: Basophils Percent Auto 0.1 % (0.2-2.0); Hemoglobin 12.2 g/dL (14.0-18.0); Immature Granulocytes Abs Auto 0.25 10^3/uL (0.00-0.03); Immature Granulocytes Pct Auto 2.8 % (0.0-0.5); Lymphocytes Absolute Auto 0.7 10^3/uL (1.2-3.8); Lymphocytes Percent Auto 8.2 % (20.5-60.0); Mean Corpuscular HGB Conc 32.1 g/dL (29.9-35.2); Mean Corpuscular Hemoglobin 29.5 pg (25.9-34.0); Mean Corpuscular Volume 91.8 fL (80.0-94.0); Mean Platelet Volume 10.2 fL (9.5-13.5); Monocytes Absolute Auto 0.3 10^3/uL (0.3-0.8); Monocytes Percent Auto 3.1 % (1.7-12.0); Neutrophils Absolute Auto 7.8 10^3/uL (1.4-6.5); Neutrophils Percent Auto 85.8 % (43.0-75.0); Platelet Count 160 10^3/uL (150-450); Red Blood Count 4.14 10^6/uL (4.70-6.10); Red Cell Distribution Width 15.9 % (11.0-15.0); White Blood Count 9.1 10^3/uL (4.0-11.0)
--- NOTE | 2024-03-09 05:47 | P.DS_ITS ---
DS: Providers Provider Date of admission: 03/07/24 16:00 Primary care physician: HEMALATHA MORAN Consults: 03/07/24 15:33 Consult to Pharmacy Routine Consulting Provider: Reason for consultation: Please [place] me when Med Rec is Updated Has provider been notified: No Occupational Therapy Eval and Treat Routine Reason for consultation: Only if needed for Rehab Has provider been notified: No Physical Therapy Eval and Treat Routine Reason for consultation: Eval and Treat Has provider been notified: No 03/07/24 15:43 Consult to Pulmonology Routine Consulting Provider: Isak Zamorano Reason for consultation: ICU pt on bipap Has provider been notified: No DS: Diagnosis Discharge Diagnosis (1) Acute on chronic hypoxic respiratory failure: Plan Admission findings severe hypoxia with significant hypercapnia secondary to possible early pneumonia with aspiration with lactic acidosis, patient had just been eating a turkey sandwich, resulting in acute exacerbation of COPD resulting in acute hypoxic respiratory and hypercapnic failure. Acute hypoxic respiratory failure secondary to aspiration with acute exacerbation of COPD-aerosol treatments, maintain BiPAP, IV antibiotics, low- dose steroids, consult to pulmonology-appreciate input by pulmonology, maintain current treatment plan is overall is improving. Able to wean his supplemental oxygen overnight. Maintain antibiotics with Zosyn, patient has no elevation in his white blood cell count but does have a significant left shift consistent with a bacterial process Sleep apnea-while patient is sleeping he should maintain on BiPAP Elevated high-sensitivity troponin likely representing demand ischemia from the acute hypoxic respiratory failure as outlined above-consider outpatient stress test-repeat echocardiogram to assess wall motion Elevated BNP-this is likely secondary to the above as well as combined effect of acute renal failure, echocardiogram done 2 months ago was unremarkable-repeat echocardiogram to assess wall motion Acute renal failure-baseline creatinine 1.13, 3.0 on admission, but is 267% above baseline-overall improving today. Maintain fluid resuscitation slowly Hypernatremia-IV fluid resuscitation-slowly improving Hyperkalemia-IV fluid resuscitation monitor daily-resolved Hyperglycemia-insulin sliding scale Dementia-patient for his safety will require soft restraints. Maintain current treatment plan Red catheter placement for monitoring accurate I's and O's Admission status: Patient will be admitted to the intensive care unit with acute hypoxic respiratory failure with acute hypercapnia. Secondary to acute exacerbation of COPD possibly related to aspiration pneumonia. Medically necessary treatment will span 2 midnights. Inpatient status. DS: Summary Hospital Course Hospital Course: Patient was seen and evaluated in the emergency room after significant choking episode on a turkey sandwich. O2 saturations at the care facility were in the 70s. He was placed initially on a nonrebreather and then BiPAP to improve his oxygenation above 90. He is maintained on that the first day. Placed on IV antibiotics and frequent aerosol treatments and steroids for aspiration event causing acute exacerbation of COPD with acute hypoxic respiratory failure. Over the last 24 hours she has improved. Has been able to be weaned down on the supplemental oxygen but is still requiring some supplemental oxygen. With his overall significant improvement laboratory evaluation is also improving. He will be discharged back to his long-term care facility for rehabilitation. Can attempt to wean supplemental oxygen there. Medications see list. Follow-up with his PCP at rehab. Time Spent with Patient Time attestation: Total time spent providing and/or coordinating discharge services: Exam Constitutional Vital Signs, click to edit/add: Last Vital Signs Temp 97.9 F 03/09/24 04:00 Pulse 68 03/09/24 04:00 Resp 18 03/09/24 04:00 BP 95/58 03/09/24 04:00 Pulse Ox 95 03/09/24 04:00 O2 Del Method Nasal Cannula 03/09/24 04:00 O2 Flow Rate 2 03/09/24 04:00 FiO2 25 03/08/24 20:52 Documenting provider has reviewed patient's vital signs: yes Common normals: no apparent distress Respiratory Common normals: normal respiratory effort and no retractions Auscultation: diminished lung sounds Cardio Common normals: regular rate, regular rhythm and no murmurs GI Common normals: Normal to inspection, nondistended, normoactive bowel sounds present, soft to palpation, non-tender, no hepatosplenomegaly and no masses Extremity Common normals: normal to inspection, normal capillary refill and no clubbing, cyanosis or edema Neuro Common normals: moves all extremities DS: Data Data Completed and Pending Labs on day of discharge: Labs from last 24 hours 03/09/24 03/08/24 03/08/24 05:30 21:47 17:10 WBC 9.1 RBC 4.14 L Hgb 12.2 L Hct 38.0 L MCV 91.8 MCH 29.5 MCHC 32.1 RDW 15.9 H Plt Count 160 MPV 10.2 Neut % (Auto) 85.8 H Lymph % (Auto) 8.2 L [place] % (Auto) 3.1 Eos % (Auto) 0.0 L Baso % (Auto) 0.1 L Neut # (Auto) 7.8 H Lymph # (Auto) 0.7 L [place] # (Auto) 0.3 Eos # (Auto) 0.0 Baso # (Auto) 0.0 Abs Immat Gran (auto) 0.25 H Seg Neuts % (Manual) Lymphocytes % (Manual) Atypical Lymphs % (Man) Monocytes % (Manual) Eosinophils % (Manual) Basophils % (Manual) Imm/Tot Granulo (auto) 2.8 H Neutrophils # (Manual) Lymphocytes # (Manual) Abs Atypical Lymphs Man Monocytes # (Manual) Eosinophils # (Manual) Basophils # (Manual) Sodium Potassium Chloride Carbon Dioxide Anion Gap BUN Creatinine Est GFR ( Amer) Est GFR (Non-Af Amer) BUN/Creatinine Ratio Glucose Calcium Total Bilirubin AST ALT Alkaline Phosphatase Troponin I High Sens NT-Pro-B Natriuret Pep Total Protein Albumin Globulin Albumin/Globulin Ratio POC Glucose 174 H 207 H 03/08/24 03/08/24 03/08/24 11:45 07:38 05:17 WBC 8.4 RBC 4.35 L Hgb 12.7 L Hct 40.5 L MCV 93.1 MCH 29.2 MCHC 31.4 RDW 16.4 H Plt Count 206 MPV 10.6 Neut % (Auto) Lymph % (Auto) [place] % (Auto) Eos % (Auto) Baso % (Auto) Neut # (Auto) Lymph # (Auto) [place] # (Auto) Eos # (Auto) Baso # (Auto) Abs Immat Gran (auto) Seg Neuts % (Manual) 92.0 H Lymphocytes % (Manual) 2.0 L Atypical Lymphs % (Man) 5.0 Monocytes % (Manual) 1.0 L Eosinophils % (Manual) 0.0 L Basophils % (Manual) 0.0 L Imm/Tot Granulo (auto) Neutrophils # (Manual) 7.72 H Lymphocytes # (Manual) 0.16 L Abs Atypical Lymphs Man 0.42 Monocytes # (Manual) 0.08 L Eosinophils # (Manual) 0.00 Basophils # (Manual) 0.00 Sodium 148 H Potassium 4.7 Chloride 104 Carbon Dioxide 34.3 H Anion Gap 14.4 BUN 69.0 H Creatinine 2.59 H Est GFR ( Amer) 29 L Est GFR (Non-Af Amer) 24 L BUN/Creatinine Ratio 26.6 Glucose 165 H Calcium 9.5 Total Bilirubin 0.4 AST 14 L ALT 17 Alkaline Phosphatase 37 L Troponin I High Sens 72.7 NT-Pro-B Natriuret Pep 58860.0 H* Total Protein 6.7 Albumin 2.4 L Globulin 4.3 Albumin/Globulin Ratio 0.6 POC Glucose 159 H 216 H Discharge Plan Discharge Disposition: Xfer SNF Condition: Fair Discharge Medications: New prednisone 10 mg tablet 40 mg PO DAILY Qty: 32 0RF Rx Instructions: 4/day for 3 days, 3/day for 3 days, 2/day for 3 days, 1/day for 3 days, 1/2 /day for 4 days amoxicillin-pot clavulanate 875-125 mg tablet 1 tab PO BID Qty: 20 0RF Continued albuterol sulfate 2.5 mg /3 mL (0.083 %) solution for nebulization 2.5 mg inhalation Q6H PRN (Reason: shortness of breath or wheezing) cetirizine [All Day Allergy (cetirizine)] 10 mg tablet 10 mg PO DAILY PRN (Reason: allergy symptoms) cholecalciferol (vitamin D3) 50 mcg (2,000 unit) tablet 50 mcg PO DAILY nystatin 100,000 unit/gram powder 1 applic TOPICAL TID spironolactone 25 mg tablet 25 mg PO DAILY citalopram [Celexa] 20 mg tablet 20 mg PO DAILY furosemide 40 mg tablet 40 mg PO BID tamsulosin [Flomax] 0.4 mg capsule 0.8 mg PO .QHS fluticasone furoate-vilanterol [Breo Ellipta] 100-25 mcg/dose blister with device 1 inh INHALATION .QHS potassium chloride 20 mEq tablet,ER particles/crystals 20 meq PO DAILY lorazepam 0.5 mg tablet 0.5 mg PO BID PRN (Reason: anxiety) acetaminophen 500 mg tablet 500 mg PO Q6H PRN (Reason: pain) aspirin 81 mg tablet,chewable 81 mg PO DAILY cyanocobalamin (vitamin B-12) [Vitamin B-12] 1,000 mcg tablet 1,000 mcg PO DAILY divalproex 500 mg tablet,delayed release (DR/EC) 500 mg PO TID ipratropium-albuterol 0.5 mg-3 mg(2.5 mg base)/3 mL solution for nebulization 3 ml INHALATION Q6H lovastatin 40 mg tablet 40 mg PO .QHS metformin 500 mg tablet 1,000 mg PO BIDWM Print Language: Georgian Autism Specialist/Moving Consultant Instructions: Discharge to [facility] skilled. Forms: Portal Instructions Follow Up Appointments: Per SNF Discharge Location: [facility]
[2024-03-09] MEDS: IPRATROPIUM/ALBUTEROL SULFATE 3 ML AMPUL.NEB IH (05:48)
[2024-03-09 06:05] LABS: Alanine Aminotransferase 12 U/L (16-63); Albumin Globulin Ratio 0.6; Albumin Level 2.2 g/dL (3.4-5.0); Alkaline Phosphatase 33 U/L (46-116); Anion Gap 13.1; Aspartate Amino Transferase 11 U/L (15-37); BUN Creatinine Ratio 27.9; Bilirubin Total 0.3 mg/dL (0.2-1.0); Calcium 9.3 mg/dL (8.5-10.1); Carbon Dioxide 31.3 mmol/L (21.0-32.0); Chloride 103 mmol/L (98-107); Estimated GFR (African America 49 (>=60 mL/min/1.73m^2); Estimated GFR (Non-African Ame 40 (>=60 mL/min/1.73m^2); Globulin 3.8 g/dL; Glucose 199 mg/dL (74-106); Potassium 4.4 mmol/L (3.5-5.1); Sodium 143 mmol/L (136-145); Troponin I High Sensitivity 30.6 pg/mL (4.0-76.1)
[2024-03-09] MEDS: DIVALPROEX SODIUM 500 MG TABLET.DR PO (06:36)
[2024-03-09 07:07] LABS: Glucometer 210 mg/dL (74-106)
[2024-03-09] MEDS: INSULIN ASPART 300 UNIT/3 ML PEN SUBQ (07:39)
[2024-03-09] MEDS: PIPERACILLIN SODIUM/TAZOBACTAM 3.375 GM in 0.9 % SODIUM CHLORIDE 50 ML IV (07:39)
[2024-03-09] MEDS: ASPIRIN 81 MG TAB.CHEW PO (08:11)
[2024-03-09] MEDS: METFORMIN HCL 500 MG TABLET 1000 MG PO (08:11)
[2024-03-09] MEDS: CITALOPRAM HYDROBROMIDE 20 MG TABLET PO (08:11)
--- NOTE | 2024-03-09 08:52 | CM.NOTE ---
Rounds made with Dr. Brown, pt will discharge to [facility] skilled today.
--- NOTE | 2024-03-09 09:31 | SWNOTE1 ---
Pt is ready for discharge today. He will be going back to [facility], but he is going skilled. MARGARET faxed over dc med rec to Cortney and Krystle at [facility]. MARGARET placed updated labs and vitals in packet and took to ICU. MARGARET called and set up [facility] and they will be here at 11:00. MARGARET notified nurse, Cortney and Krystle at [facility], and pt's daughter of discharge time.
--- NOTE | 2024-03-09 10:49 | PC.NURSE ---
report called to wilberto at [facility]. aware of transfer and eta of tranportation
== END 2024-03-09 11:30 | DRG 189 ==
LOC: ER 15:07 → ICU 16:03
PROVIDERS: Internal Medicine; Admitting Provider Family Medicine; Emergency Provider Emergency Medicine; PCP Family Medicine; Visit Provider Family Medicine
DX: J96.21 Acute and chronic respiratory failure with hypoxia (principal); J69.0 Pneumonitis due to inhalation of food and vomit; E87.0 Hyperosmolality and hypernatremia; J44.1 Chronic obstructive pulmonary disease with (acute) exacerbation; N17.9 Acute kidney failure, unspecified; F03.918 Unspecified dementia, unspecified severity, with other behavioral disturbance; E87.20 Acidosis, unspecified; I44.2 Atrioventricular block, complete; J96.22 Acute and chronic respiratory failure with hypercapnia; G47.30 Sleep apnea, unspecified; R79.89 Other specified abnormal findings of blood chemistry; E87.5 Hyperkalemia; F03.90 Unspecified dementia, unspecified severity, without behavioral disturbance, psychotic disturbance, mood disturbance, and anxiety; D50.9 Iron deficiency anemia, unspecified; Z95.0 Presence of cardiac pacemaker; Z87.891 Personal history of nicotine dependence; G47.33 Obstructive sleep apnea (adult) (pediatric); Z95.5 Presence of coronary angioplasty implant and graft; Z78.1 Physical restraint status; Z79.84 Long term (current) use of oral hypoglycemic drugs; R74.8 Abnormal levels of other serum enzymes; E11.65 Type 2 diabetes mellitus with hyperglycemia; L98.499 Non-pressure chronic ulcer of skin of other sites with unspecified severity
CPT/HCPCS: 36415; 36600; 51702; 71045; 80048; 80053; 81001; 82800; 82805; 82948; 83605; 83735; 83880; 84436; 84443; 84484; 85007; 85025; 85027; 87040; 87070; 87804; 87811; 93005; 93308; 93356; 94640; 94660; 94761; 96374; 97110; 97161; 97165; 97530; 99291; 99292; J2020; J2060; J2543; J2919

== ENCOUNTER 2024-03-29 18:54 | Observation (INO) | payer OTHER, MEDICAID, SELFPAY ==
[2024-03-29] VITALS (24 sets, daily range): BP systolic 90–116; BP diastolic 47–77; PULSE 0–94; TEMP 36.4; O2SAT 89–99; BMI 31.6
--- NOTE | 2024-03-29 19:09 | XR_ITS ---
The [address] [address] Patient Name: CLYDE MARINA MRN: [id number] date: 1945 Sex: M Assigned Patient Location: ER Current Patient Location: ER Accession/Order Number: [id number] Exam Date: 03/29/2024 19:50 Report Date: 03/29/2024 23:09 At the request of: RAJESH MAGANA Procedure: XR chest 1V EXAM: XR chest 1V HISTORY: low 02 COMPARISON: Chest radiograph 03/08/2024, 03/07/2024 TECHNIQUE: Single frontal view of the chest FINDINGS: Left chest wall implantable cardiac device with leads in similar position. Lordotic positioning. Lungs symmetrically and adequately inflated. Mild interstitial prominence. No focal consolidation. No pneumothorax. Probable trace bilateral pleural effusions. Unchanged cardiomediastinal contours with atherosclerotic calcifications of the aorta. XR/XR chest 1V IMPRESSION: Prominent cardiomediastinal silhouette with findings suggestive of pulmonary interstitial edema and trace effusions. Electronically authenticated by: AUDRA GONZALEZ Date: 03/29/2024 23:09
--- NOTE | 2024-03-29 19:09 | ECG_ITS ---
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
--- NOTE | 2024-03-29 19:11 | CT_ITS ---
The [address] [address] Patient Name: CLYDE MARINA MRN: [facility]:[id number] date: 1945 Sex: M Assigned Patient Location: ER Current Patient Location: Accession/Order Number: [id number] Exam Date: 03/29/2024 19:52 Report Date: 03/29/2024 21:43 At the request of: RAJESH MAGANA Procedure: CT head/brain wo con EXAM: CT head/brain wo con INDICATION: 78 years old; Male. Change in mental status. TECHNIQUE: CT Head (ax/cor/sag reformats). Ionizing radiation dose reduced via iterative reconstruction/FBP blend and body size kV/mA adjustment. Comparison: Head CT dated 01/03/2024. FINDINGS: POSTOPERATIVE CHANGES: None. BRAIN PARENCHYMA: No intraparenchymal or extra-axial hemorrhage. No mass effect. No midline shift or herniation. Patchy low-density in the white matter without mass effect. VENTRICLES/EXTRA-AXIAL SPACES: Enlarged, consistent with atrophy. SINUSES/MASTOIDS: The visualized sinuses are clear although the maxillary sinuses are not completely included. Left frontal sinus is hypoplastic. Mastoid sclerosis bilaterally. Postoperative changes consistent with prior mastoidectomy. Soft tissue material in the surgical beds. No change from prior. MSK: No displaced or depressed calvarial fracture. OTHER: There is vascular calcification and tortuosity in the anterior and posterior circulation. There is focal dilatation of the MCA bilaterally in the MCA bifurcations consistent with symmetric aneurysms. Calcification is present on the left. This appearance is unchanged as compared to the prior study. CT/CT head/brain wo con IMPRESSION: 1. No acute intracranial abnormality. No change from prior study. 2. Atrophy. 3. Nonspecific white matter changes. 4. 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 The appearance is unchanged as compared to the prior study. Electronically authenticated by: PATTI PENA Date: 03/29/2024 21:43
--- NOTE | 2024-03-29 19:13 | ED.GENADUL1 ---
HPI HPI - General Adult General Chief complaint: Altered Mental Status Stated complaint: Altered Mental Status Time Seen by Provider: 03/29/24 19:03 Source: caregiver Mode of arrival: ambulance Limitations: altered mental status History of Present Illness HPI narrative: The history and physical secondary to baseline Alzheimer's dementia. Report was given by nursing staff from patient's facility to nursing staff here. They called stating that patient's oxygen was kept reading low this morning. He was hospitalized a couple weeks ago for respiratory disease and issues. They state that he did not seem to have any respiratory distress, that he does not seem to have any now. EMS was called, EMS notes no hypoxia as well. They state patient did not have any respiratory distress. Patient at this time has no respiratory complaints, but does have a history of Alzheimer's dementia. He is able to follow commands and answer very basic questions, but is not alert or oriented, and does not know why year. Related Data Home Medications ?Medication ?Instructions ?Recorded ?Confirmed citalopram 20 mg tablet (Celexa) 20 mg PO DAILY 01/31/23 03/29/24 furosemide 40 mg tablet 40 mg PO BID 01/31/23 03/29/24 tamsulosin 0.4 mg capsule (Flomax) 0.8 mg PO .QHS 01/31/23 03/29/24 albuterol sulfate 2.5 mg/3 mL 2.5 mg inhalation Q6H PRN 01/03/24 03/29/24 (0.083 %) solution for nebulization shortness of breath or wheezing cetirizine 10 mg tablet (All Day 10 mg PO DAILY PRN allergy symptoms 01/03/24 03/29/24 Allergy (cetirizine)) cholecalciferol (vitamin D3) 50 50 mcg PO DAILY 01/03/24 03/29/24 mcg (2,000 unit) tablet nystatin 100,000 unit/gram topical 1 applic topical TID 01/03/24 03/29/24 powder spironolactone 25 mg tablet 25 mg PO DAILY 01/03/24 03/29/24 acetaminophen 500 mg tablet 500 mg PO Q6H PRN pain 03/07/24 03/29/24 aspirin 81 mg chewable tablet 81 mg PO DAILY 03/07/24 03/29/24 cyanocobalamin (vitamin B-12) 1,000 mcg PO DAILY 03/07/24 03/29/24 1,000 mcg tablet (Vitamin B-12) divalproex 500 mg tablet,delayed 500 mg PO TID 03/07/24 03/29/24 release fluticasone furoate 100 1 inh inhalation .QHS 03/07/24 03/07/24 mcg-vilanterol 25 mcg/dose inhalation powder (Breo Ellipta) ipratropium 0.5 mg-albuterol 3 mg 3 ml inhalation Q6H 03/07/24 03/29/24 (2.5 mg base)/3 mL nebulization soln lorazepam 0.5 mg tablet 0.5 mg PO BID PRN anxiety 03/07/24 03/29/24 lovastatin 40 mg tablet 40 mg PO .QHS 03/07/24 03/29/24 metformin 500 mg tablet 500 mg PO BID 03/07/24 03/29/24 potassium chloride 20 mEq 20 meq PO DAILY 03/07/24 03/29/24 tablet,extended release(part/cryst) albuterol sulfate 2.5 mg/3 mL 2.5 mg inhalation Q6H PRN 03/29/24 03/29/24 (0.083 %) solution for nebulization shortness of breath or wheezing alprazolam 0.5 mg tablet 1 mg PO DAILY 03/29/24 03/29/24 apixaban 2.5 mg tablet (Eliquis) 2.5 mg PO BID 03/29/24 03/29/24 fluticasone furoate 100 1 inh inhalation DAILY 03/29/24 03/29/24 mcg-vilanterol 25 mcg/dose inhalation powder (Breo Ellipta) Previous Rx's ?Medication ?Instructions ?Recorded amoxicillin 875 mg-potassium 1 tab PO BID #20 tabs 03/09/24 clavulanate 125 mg tablet prednisone 10 mg tablet 40 mg (4 x 10 mg) PO DAILY #32 tabs 03/09/24 Allergies Allergy/AdvReac Type Severity Reaction Status Date / Time No Known Drug Allergies Allergy Verified 01/08/24 19:13 Opioid HPI Opioid Management Most Recent Opioid Data: Last Pain Scale 6 01/04/24 10:19 01/04/24 Last Pain Intensity 3 01/04/24 10:19 01/04/24 Last ORT Total Score 0 03/07/24 16:15 03/07/24 Last ORT Risk Category Low Risk 03/07/24 16:15 03/07/24 Review of Systems ROS Narrative Unable to fully assess secondary to baseline conditions [facility] Medical History (Updated 03/30/24 @ 04:18 by Rogelio Olivas MD) Acute on chronic hypoxic respiratory failure ?J96.21 - Acute and chronic respiratory failure with hypoxia (ICD-10) Elevated brain natriuretic peptide (BNP) level ?R79.89 - Other specified abnormal findings of blood chemistry (ICD-10) Elevated troponin ?R79.89 - Other specified abnormal findings of blood chemistry (ICD-10) Diabetes mellitus ?E11.9 - Type 2 diabetes mellitus without complications (ICD-10) Acute renal failure ?N17.9 - Acute kidney failure, unspecified (ICD-10) Hyperkalemia ?E87.5 - Hyperkalemia (ICD-10) Hypernatremia ?E87.0 - Hyperosmolality and hypernatremia (ICD-10) Iron deficiency anemia ?D50.9 - Iron deficiency anemia, unspecified (ICD-10) Acute respiratory failure with hypercapnia ?J96.02 - Acute respiratory failure with hypercapnia (ICD-10) Acute hypoxic respiratory failure ?J96.01 - Acute respiratory failure with hypoxia (ICD-10) Respiratory failure ?J96.90 - Respiratory failure, unspecified, unspecified whether with hypoxia or hypercapnia (ICD-10) Third degree heart block ?I44.2 - Atrioventricular block, complete (ICD-10) Difficulty walking ?R26.2 - Difficulty in walking, not elsewhere classified (ICD-10) Pulmonary HTN ?I27.20 - Pulmonary hypertension, unspecified (ICD-10) Cognitive communication deficit ?R41.841 - Cognitive communication deficit (ICD-10) Agitation due to dementia ?F03.911 - Unspecified dementia, unspecified severity, with agitation (ICD-10) Anxiety ?F41.9 - Anxiety disorder, unspecified (ICD-10) BENJAMIN (obstructive sleep apnea) ?G47.33 - Obstructive sleep apnea (adult) (pediatric) (ICD-10) HLD (hyperlipidemia) ?E78.5 - Hyperlipidemia, unspecified (ICD-10) BPH (benign prostatic hyperplasia) ?N40.0 - Benign prostatic hyperplasia without lower urinary tract symptoms (ICD-10) Alzheimer dementia ?G30.9 - Alzheimer's disease, unspecified (ICD-10) ?F02.80 - Dementia in other diseases classified elsewhere, unspecified severity, without behavioral disturbance, psychotic disturbance, mood disturbance, and anxiety (ICD-10) Recurrent falls ?R29.6 - Repeated falls (ICD-10) Viral pneumonia ?J12.9 - Viral pneumonia, unspecified (ICD-10) Dysphagia ?R13.10 - Dysphagia, unspecified (ICD-10) Diverticulitis ?K57.92 - Diverticulitis of intestine, part unspecified, without perforation or abscess without bleeding (ICD-10) Seasonal allergic rhinitis ?J30.2 - Other seasonal allergic rhinitis (ICD-10) CAD (coronary artery disease) ?I25.10 - Atherosclerotic heart disease of [place] coronary artery without angina pectoris (ICD-10) PVD (peripheral vascular disease) ?I73.9 - Peripheral vascular disease, unspecified (ICD-10) Chronic diastolic heart failure ?I50.32 - Chronic diastolic (congestive) heart failure (ICD-10) Pacemaker ?Z95.0 - Presence of cardiac pacemaker (ICD-10) Laceration of nose ?S01.21XA - Laceration without foreign body of nose, initial encounter (ICD-10) New onset seizure ?R56.9 - Unspecified convulsions (ICD-10) Dementia with behavioral disturbance ?F03.918 - Unspecified dementia, unspecified severity, with other behavioral disturbance (ICD-10) Behavioral problem Sleep apnea ?G47.30 - Sleep apnea, unspecified (ICD-10) COPD (chronic obstructive pulmonary disease) ?J44.9 - Chronic obstructive pulmonary disease, unspecified (ICD-10) Surgical History (Updated 03/07/24 @ 23:21 by Ky Galindo) History of permanent cardiac pacemaker placement ?Z95.0 - Presence of cardiac pacemaker (ICD-10) H/O heart artery stent ?Z95.5 - Presence of coronary angioplasty implant and graft (ICD-10) Family History (Updated 01/03/24 @ 16:02 by Pia Segura LPN) Mother Family history of CHF (congestive heart failure) Family history of COPD (chronic obstructive pulmonary disease) Father Family history of CHF (congestive heart failure) Brother Family history of CHF (congestive heart failure) Family history of diabetes mellitus Family history of myocardial infarction Social History (Updated 01/03/24 @ 16:04 by Pia Segura LPN) Within the past year, how often did you have a drink containing alcohol: never Within the past year, how many standard drinks containing alcohol did you have on a typical day: 1 or 2 Within the past year, how often did you have six or more drinks on one occasion: never Total score: 0 Score interpretation: A score less than 4 is consistent with normal alcohol consumption. 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 Known occupational exposures/hazards: No Highest level of school completed/degree received: don't know Do you want help with school or training: No Are you now , , , , never or living with a partner: In a typical week, how many times do you talk on the telephone with family, friends, or neighbors: once per week How often do you get together with friends or relatives: once per week How often do you attend restoration or sabianist services: 4 or more times per year Do you belong to any clubs or organizations such as restoration groups unions, fraternal or athletic groups, or school groups: no Total score: 2 Score interpretation: A score of greater than or equal to 2 indicates the lowest level of social isolation. Little interest or pleasure in doing things: not at all Feeling down, depressed, or hopeless: not at all Feel stressed/tense/nervous/anxious/difficulty sleeping: not at all Due to disability, difficulty making decisions: No Do you think of yourself as: straight/heterosexual Gender Identity: male Exam Narrative Exam Narrative: General: NAD, AAOx0, no distress HEENT: NCAT, mmm, no retractions or nasal flaring, no JVD Neck: Supple, no LAD, negative Kernig/Brudzinski, non meningeal, no bruit Respiratory: respiratory effort normal, speaks in full sentences, no tripod position, no accessory muscle use. Lungs clear to auscultation without rhonchi, wheezes, rales Cardiac: Regular rate and rhythm, no edema, regular s1/s2, no m/g/r Abdomen: Soft, ND/NT. No evidence of fluid wave. No pulsatile masses on exam, rebound tenderness, Coon sign or pain over Mcburney's point. Neuro: Speech is clear and appropriate. Normal level of consciousness, baseline dementia per chart review Constitutional Vital Signs, click to edit/add: Last Vital Signs Temp 97.6 F 03/29/24 18:56 Pulse 71 03/30/24 00:20 Resp 18 03/30/24 00:20 BP 120/59 03/30/24 00:01 Pulse Ox 95 03/30/24 00:20 O2 Del Method Room Air 03/29/24 22:43 O2 Flow Rate 2 03/29/24 18:56 Course Vital Signs Vital signs: Vital Signs Temperature 97.6 F 03/29/24 18:56 Pulse Rate 84 03/29/24 18:56 Respiratory Rate 16 03/29/24 18:56 Blood Pressure 90/77 03/29/24 18:56 Pulse Oximetry 99 03/29/24 18:56 Oxygen Delivery Method Nasal Cannula 03/29/24 18:56 Oxygen Delivery Flow Rate 2 03/29/24 18:56 Temperature 97.6 F 03/29/24 18:56 Pulse Rate 71 03/30/24 00:20 Respiratory Rate 18 03/30/24 00:20 Blood Pressure 120/59 03/30/24 00:01 Pulse Oximetry 95 03/30/24 00:20 Oxygen Delivery Method Room Air 03/29/24 22:43 Oxygen Delivery Flow Rate 2 03/29/24 18:56 Medical Decision Making MDM Narrative Medical decision making narrative: [facility] Patient with history as above presented with hypoxia. History obtained from EMS, nursing facility. Patient was nontoxic, stable. Ambulatory. Exam as above. EKG reviewed. Labs reviewed. Independently reviewed imaging. Reviewed external records. Differential diagnosis considered. They called saying the patient's oxygen level was low. They state that he is more altered today than normal, but on chart review it appears the patient does have Alzheimer's dementia and is not have good orientation at baseline. Overall presentation is consistent with hypoxia Patient presenting to the ED for above-stated complaint. Patient has no acute complaints. Labs and imaging were ordered 2030 Labs were as noted. Patient with troponin elevation. Patient denies chest pain, shortness of breath. The patient does have Alzheimer's. Unclear story. Will trend the troponins. Patient's BNP was elevated, significantly lower than prior. 2248 patient's noted to be hypoxic, 88% on room air, oxygen was placed. CT was ordered given hypoxia, and patient's bedbound status 2318 chest x-ray was noted. No acute infections were noted. Repeat lactate and repeat troponin pending 2359 repeat lactate was noted. I believe patient's repeat troponin and lactate are elevated secondary to patient's hypoxia. Patient does not have any complaints of chest pain, shortness of breath. Blood was of not been drawn, I do not believe that patient's lactic acidosis is from a true sepsis, I believe it is from hypoxia. Likely troponin leak from heart failure and hypoxia as well given chest x-ray findings and lack of complaints 0027 discussed with radiology, read pending 0129 discussed with radiology read pending 0301 discussed with radiology, they state 3-1/2 hours for reads at this time 0417 discussed with hospitalist. She is mission at this time Lab Data Labs: Lab Results 03/29/24 03/29/24 03/29/24 Range/Units 20:19 20:51 22:30 WBC 6.5 (4.0-11.0) 10^3/uL RBC 4.50 L (4.70-6.10) 10^6/uL Hgb 13.6 L (14.0-18.0) g/dL Hct 41.5 L (42.0-54.0) % MCV 92.2 (80.0-94.0) fL MCH 30.2 (25.9-34.0) pg MCHC 32.8 (29.9-35.2) g/dL RDW 17.4 H (11.0-15.0) % Plt Count 108 L (150-450) 10^3/uL MPV 11.2 (9.5-13.5) fL Neut % (Auto) 64.8 (43.0-75.0) % Lymph % (Auto) 16.9 L (20.5-60.0) % Atkinson % (Auto) 12.9 H (1.7-12.0) % Eos % (Auto) 3.2 (0.9-7.0) % Baso % (Auto) 0.5 (0.2-2.0) % Neut # (Auto) 4.2 (1.4-6.5) 10^3/uL Lymph # (Auto) 1.1 L (1.2-3.8) 10^3/uL Atkinson # (Auto) 0.8 (0.3-0.8) 10^3/uL Eos # (Auto) 0.2 (0.0-0.7) 10^3/uL Baso # (Auto) 0.0 (0.0-0.1) 10^3/uL Abs Immat Gran (auto) 0.11 H (0.00-0.03) 10^3/uL Imm/Tot Granulo (auto) 1.7 H (0.0-0.5) % PT 10.5 (9.0-11.6) sec INR 0.99 APTT 28.2 (22.3-36.2) sec Sodium 144 (136-145) mmol/L Potassium 4.9 (3.5-5.1) mmol/L Chloride 101 (98-107) mmol/L Carbon Dioxide 37.3 H (21.0-32.0) mmol/L Anion Gap 10.6 BUN 38.0 H (7.0-18.0) mg/dL Creatinine 1.64 H (0.70-1.30) mg/dL Est GFR ( Amer) 49 L (>=60 mL/min/1.73m^2) Est GFR (Non-Af Amer) 41 L (>=60 mL/min/1.73m^2) BUN/Creatinine Ratio 23.2 Glucose 128 H (74-106) mg/dL Lactate 4.5 H* 3.5 H* (0.4-2.0) mmol/L Calcium 10.1 (8.5-10.1) mg/dL Magnesium 2.1 (1.8-2.4) mg/dL Total Bilirubin 0.3 (0.2-1.0) mg/dL AST 23 (15-37) U/L ALT 41 (16-63) U/L Alkaline Phosphatase 43 L (46-116) U/L Troponin I High Sens 80.5 H* 90.1 H* (4.0-76.1) pg/mL NT-Pro-B Natriuret Pep 2298.0 H* (<=1800.0) pg/mL Total Protein 6.5 (6.4-8.2) g/dL Albumin 2.9 L (3.4-5.0) g/dL Globulin 3.6 g/dL Albumin/Globulin Ratio 0.8 Urine Color Lt. yellow (YELLOW) Urine Clarity Clear (CLEAR) Urine pH 6.5 (5.0-9.0) Ur Specific Emily 1.010 (1.005-1.025) Urine Protein Negative (NEG/TRACE) mg/dL Urine Glucose (UA) Negative (NEGATIVE) mg/dL Urine Ketones Negative (NEGATIVE) mg/dL Urine Occult Blood Negative (NEGATIVE) Urine Nitrite Negative (NEGATIVE) Urine Bilirubin Negative (NEGATIVE) Urine Urobilinogen 1.0 (0.2-1.0) EU/dL Ur Leukocyte Esterase Negative (NEGATIVE) Influenza Type A Ag Negative Influenza Type B Ag Negative SARS-CoV-2 Ag (CV2AG) Negative (NEGATIVE) Discharge Plan Discharge Chief Complaint: Altered Mental Status Clinical Impression: Hypoxia, Elevated brain natriuretic peptide (BNP) level, Elevated troponin, CHF (congestive heart failure) Patient Disposition: Admitted As Inpatient Time of Disposition Decision: 04:18
--- OUTSIDE RECORDS SUMMARY | 2024-03-29 19:15 | XMS_ITS | CCD ---
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 Name Role Phone Unavailable Primary Care Provider Bienvenido Rodriguez Primary Care Physician [phone] Andrew Rodriguez Unavailable Unavailable Luis Gil Unavailable Unavailable Donta NOONAN Admitting Unavailable Donta NOONAN Attending Unavailable DO Radha Grace Attending UnavailDonta Guadalupe Attending Unavailable Donta NOONAN Attending Unavailable Donta [...] Unavailab le NON STAFF Primary Care Unavailable PROVIDER, UNKNOWN Attending Unavailable PROVIDER, UNKNOWN Admitting Unavailable LOLA BRIGGS Consulting Unavailable Bienvenido Barroso MD Unavailable EN, HAYLEY T Referring Unavailable YESENIA WHITE Referring Unavailable DONNIE CAVAZOS Admitting Unavailable EN, HAYLEY T Attending Unavailable EN, HAYLEY T Referring Unavailable EN, HAYLEY T Referring Unavailable SHAWN ALEGRIA Attending Unavailable SHAWN ALEGRIA Attending Unavailable ARIC MIRZA Referring Unavailable MACY, YOUNGSOOK Referring Unavailable MACY, YOUNGSOOK Referring Unavailable MACY, YOUNGSOOK Referring Unavailable MACY, YOUNGSOOK Referring Unavailable MACY, YOUNGSOOK Referring Unavailable Medications Current Medications Medication Drug Class(es) Dates Sig (Normalized) Sig (Original) acetaminophen 325 mg oral tablet (12 sources) Start: 06-16-2014 take 2 tablets by mouth every six hours as needed for pain acetaminophen 325 mg Tab 650 mg = 2 tab(s), Oral, q6hr, PRN Pain, Refills(s) 0 Start Date: 06/16/14 Status: Ordered take 1 tablet by mouth every six hours acetaminophen (Tylenol) 325 MG tablet 325 mg every 6 (six) hours. Active [id number] 200 actuat albuterol 0.09 mg/actuat metered dose inhaler (4 sources) beta2-Adrenergic Agonist Start: 04-27-2021 take 2 puff(s) by inhalation four times daily for wheezing Pro-Air HFA CFC free 90 mcg/inh MDI 2 puff(s), Inhalation, QID for wheezing, 8.5 gram, Refill(s) 0, [facility], 167.6, cm, 04/24/21 18:14:00 EST, Height/Length [...] aspirin 81 mg delayed release oral tablet (12 sources) Platelet Aggregation Inhibitor, Nonsteroidal Anti-inflammatory Drug Start: 12-02-2022 take 1 tablet by mouth once daily aspirin 81 mg Oral EC Tab 81 mg = 1 tab(s), Oral, Daily, # 30 tab(s), Refills(s) 0, Pharmacy: [facility], 167, cm, 11/28/22 17:20:00 EDT, Height/Length [...] Daily, # 90 tab(s), Refills(s) 4, Pharmacy: [facility], 160, cm, 12/18/22 0:04:00 EDT, Height/Length [...] Daily, # 90 tab(s), Refills(s) 4, Pharmacy: [facility], 160, cm, 12/18/22 0:04:00 EDT, Height/Length Dosing, 94, kg, 12/18/22 0:04:00 EDT, Weight Dosing Start Date: 01/15/23 Status: Ordered Start: 12-22-2022 take 1 tablet by ruperto once daily citalopram 20 mg Tab 20 mg = 1 tab(s), Oral, Daily, Refills(s) 0 Start Date: 12/22/22 Status: Ordered furosemide 40 mg oral tablet (12 sources) Loop Diuretic Start: 06-13-2013 take 1 tablet by mouth once daily furosemide 40 mg Tab 40 mg = 1 tab(s), Oral, Daily, # 90 tab(s), Refills(s) 1, Pharmacy: [facility], 160, cm, 12/18/22 0:04:00 EDT, Height/Length Dosing, 94, kg, 12/18/22 0:04:00 EDT, Weight Dosing Start Date: 01/15/23 Status: Ordered glimepiride 1 mg oral tablet (7 sources) Sulfonylurea Start: 09-28-2022 take 1 tablet by mouth once daily at mealtime glimepiride 1 mg Tab 1 mg = 1 tab(s), Oral, Daily, with the first meal of the day, # 30 tab(s), Refills(s) 0, Pharmacy: [facility], 167, cm, 09/26/22 10:09:00 EDT, Height/Length [...] Date: 12/20/22 Stop Date: 12/25/22 Status: Ordered LORazepam 0.5 mg oral tablet (5 sources) Benzodiazepine Start: 03-21-2024 End: 07-19-2024 take 1 tablet by mouth in the morning, then take 1 tablet by mouth in the evening, then take 1 tablet by mouth at bedtime LORazepam (Ativan) 0.5 MG tablet Indications: Anxiety Take 1 tablet (0.5 mg) by mouth in the morning and 1 tablet (0.5 mg) in the evening and 1 tablet (0.5 mg) before bedtime. 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 90 tablet 11/10/2022 Active metFORMIN hydrochloride 1000 mg oral tablet (12 sources) Biguanide Start: 04-30-2013 take 1 tablet [...] succinate 50 mg extended release oral tablet (5 sources) beta-Adrenergic Varsha Start: 06-13-2013 take 1 tablet by mouth once daily metoprolol 50 mg ER Tab 50 mg = 1 tab(s), Oral, Daily, Refills(s) 0, High blood pressure Start Date: 06/13/13 Status: Ordered take 0.5 tablet by mouth twice d aily metoprolol tartrate (Lopressor) 50 MG tablet Take 1/2 tablet by mouth twice daily for 90 days Active QUEtiapine 25 mg oral tablet (8 sources) Atypical Antipsychotic Start: 01-15-2023 quetiap ine 25 mg Tab See Instructions, 25 mg qAM- 75 mg q1600 - 75mg qHS, # 210 tab(s), Refills(s) 1, Pharmacy: [facility], 160, cm, 12/18/22 0:04:00 EDT, Height/Length [...] Bedtime, # 30 tab(s), Refills(s) 0, Pharmacy: [facility], 167, cm, 11/28/22 17:20:00 EDT, Height/Length Dosing, 99.8, kg, 11/28/22 17:20:00 EDT, Weight Dosing Start Date: 12/02/22 Status: Ordered Start: 05-31-2021 take 1 tablet by ruperto th once daily quetiapine 50 mg oral tablet 50 mg = 1 tab(s), Oral, Daily, # 30 tab(s), Refills(s) 0 Start Date: 05/31/21 Status: Ordered spironolactone 25 mg oral tablet (12 sources) Aldosterone Antagonist Start: 01-15-2023 take 1 tablet by mouth once daily spironolactone 25 mg Tab 25 mg = 1 tab(s), Oral, Daily, # 90 tab(s), Refills(s) 1, Pharmacy: [facility], 160, cm, 12/18/22 0:04:00 EDT, Height/Length [...] week(s), # 8 cap(s), Refills(s) 0, Pharmacy: [facility], 167, cm, 11/28/22 17:20:00 EDT, Height/Length [...] Completed tamsulosin hydrochloride 0.4 mg oral capsule (13 sources) alpha-Adrenergic Varsha Start: 01-24-2023 End: 01-24-2023 tamsulosin 0.4 mg Cap 0.4 mg = 1 cap(s), Cap, Oral, Start date 01/24/23 9:00:00 EDT, 01/21/23 20:27:00 EDT Start Date: 01/24/23 Stop Date: 01/24/23 Status: Completed Start: 06-16-2014 take 1 capsule by mo [facility] twice daily tamsulosin 0.4 mg Cap 0.4 mg = 1 cap(s), Oral, BID, Refills(s) 0, Urinary discomfort Start Date: 06/16/14 Status: Ordered take 1 capsule by [facility] every twenty-four hours in the morning tamsulosin (Flomax) 0.4 MG 24 hr capsule Take 0.4 mg by mouth in the morning. Active Problems Active Problems Problem Classification Problem Date Documented Da te Episodic/Chronic Abdominal pain (1 source) Abdominal pain; Translations: [Unspecified abdominal pain] Onset: 11-28-2022 Episodic Acute and unspecified renal failure (1 source) Acute renal failure syndrome; Translations: [Acute kidney failure, unspecified] Onset: 12-18-2022 Episodic Acute myocardial infarction (8 sources) Myocardial infarction 03-29-2016 Chronic Anxiety disorders (6 sources) Anxiety; Translations: [Anxiety disorder, unspecified] 12-11-2022 Chronic Cardiac dysrhythmias (2 sources) Paroxysmal atrial fibrillation; Translations: [Paroxysmal atrial fibrillation] Onset: 03-22-2024 Chronic Cardiac dysrhythmias (3 sources) Sinus bradycardia; [...] Coronary atherosclerosis; Translations: [Atherosclerotic heart disease of [place] coronary artery without angina pectoris] Onset: 11-29-2022 Chronic Deficiency and other anemia (1 source) Anemia; Translations: [Anemia, unspecified] Onset: 11-29-2022 Episodic Deficiency and other anemia (2 sources) Other iron deficiency anemias; Translations: [Other iron deficiency anemias] Onset: 01-09-2024 Episodic Delirium, dementia, and amnestic and other cognitive disorders (20 sources) Dementia; Translations: [Unspecified dementia without behavioral disturbance] Onset: 11-29-2022 Chronic Diabetes mellitus with complications (4 sources) Disorder of nervous system due to type 2 diabetes mellitus; 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] Onset: 10-21-2022 10-21-2022 Chronic Diabetes mellitus without complication (14 sources) [...] Classification Problem Date Documented Da te Episodic/Chronic Mood disorders (4 sources) Mood disorders Onset: 11-25-2022 11-25-2022 Mycoses (4 sources) Onychomycosis; Translations: [Tinea unguium] Onset: 10-21-2022 10-21-2022 Episodic Other connective tissue disease (4 sources) Pain of toe of right foot; Translations: [Pain in right toe(s)] Onset: 10-21-2022 10-21-2022 Episodic Other connective tissue disease (4 sources) Pain of toe of left foot; Translations: [Pain in left toe(s)] Onset: 10-21-2022 10-21-2022 Episodic Pneumonia (except that caused by tuberculosis or sexually transmitted disease) (7 sources) Pneumonia; Translations: [Pneumonia, unspecified organism] Onset: 12-18-2022 Episodic Respiratory failure; insufficiency; arrest (adult) (3 sources) Acute respiratory failure; Translations: [Acute respiratory failure with hypoxia] Onset: 11-29-2022 Episodic Results Test Name Value Interpretation Reference Range Facility Office Visiton 03-22-2024 Follow-up visit [id number] Clyde Humphrey 1945 M Date Provider Department Center 03/22/2024 [id number] ALEGRIA [facility] No family history on file Level of Service:00135 NE OFFICE/OUTPATIENT ESTABLISHED [facility] Reason for Visit and Comments: heart block [Other] - S/p pacemaker insertion in Dec 2023 Pacemaker Check [337] - Per [place] [facility] rep - He's had 12.7 hours of afib since Dec 2023, with a burden of < 1%. Normal [facility] ALL BASIC METABOLIC PANELon 03-03-2024 Anion gap [Moles/Vol] 9.1 mmol/L [facility] Calcium [Mass/Vol] 10.2 mg/dL High 8.5 - 10. 1 mg/dL [facility] Chloride [Moles/Vol] 95 mmol/L Low 98 - 10 7 mmol/L [facility] CO2 [Moles/Vol] 38.2 mmol/L High 21.0 - 32.0 mmol/L [facility] Creatinine [Mass/Vol] 1.73 mg/dL High 0.70 - 1.30 mg/dL [facility] GFR/1.73 sq M.predicted CKD-EPI (S/P/Bld) [Vol rate/Area] 46 Low >=60 mL/min/1.73 m 2 [facility] Glucose [Mass/Vol] 132 mg/dL High 74 - 106 mg/dL [facility] Interpretation and review of laboratory results Abnormal [facility] Potassium [Moles/Vol] 4.3 mmol/L 3.5 - 5.1 mmol/L [facility] Sodium [Moles/Vol] 138 mmol/L 136 - 145 mmol/L [facility] TBH EGFR-NON AF BELGIAN 38 Low >=6 0 mL/min/1.73 m 2 [facility] Urea nitrogen [Mass/Vol] 37.0 mg/dL High 7.0 - 18.0 mg/dL [facility] Urea nitrogen/Creatinine [Mass ratio] 21.4 mg/mg [facility] ALL PRO BNPon 03-03-2024 NT PRO B TYPE NATRIURETIC PEPT 1772.0 pg/mL NINF - 1800.0 pg/mL [facility] No Panel Informationon 03-03 [facility] ALL CBC WITH AUTO DIFFon BASOPHILS ABSOLUTE AUTO 0.0 N [facility] Basophils/100 WBC (Bld) 0.4 % 0.2 - 2.0 % [facility] Eosinophils/100 WBC (Bld) 15.4 % High 0.9 - 7.0 % [facility] Erythrocyte distribution width (RBC) [Ratio] 16.1 % High 11.0 - 15.0 % [facility] Hematocrit (Bld) [Volume fraction] 40.0 % Low 42.0 - 54.0 % [facility] Hemoglobin (Bld) [Mass/Vol] 12.6 g/dL Low 14.0 - 18.0 g/dL [facility] IMMATURE GRANULOCYTES ABS AUTO 0.22 High [facility] Immature granulocytes/100 WBC (Bld) 2.9 % High 0.0 - 0.5 % [facility] Interpretation and review of laboratory results Abnormal [facility] LYMPHOCYTES ABSOLUTE AUTO 1.3 [facility] Lymphocytes/100 WBC (Bld) 16.9 % Low 20.5 - 60.0 % [facility] MCH (RBC) [Entitic mass] 28.7 pg 25. 9 - 34.0 pg [facility] MCHC (RBC) [Mass/Vol] 31.5 g/dL 29.9 - 35.2 g/dL [facility] MCV (RBC) [Entitic vol] 91.1 fL 80.0 - 94.0 fL [facility] MONOCYTES ABSOLUTE AUTO 1.2 High [facility] Monocytes/100 WBC (Bld) 15.3 % High 1.7 - 12.0 % [facility] NEUTROPHILS ABSOLUTE AUTO 3.7 [facility] Neutrophils/100 WBC (Bld) 49.1 % 43.0 - 75.0 % [facility] Platelet mean volume (Bld) [Entitic vol] 10.4 fL 9.5 - 13.5 fL [facility] EO # 1.2 High [facility] PLT 151 [facility] RBC 4.39 Low [facility] WBC 7.5 [facility] Office Visiton 01-21-2024 Follow-up visit [id number] Clyde Humphrey 1945 M Date Provider Department Center 01/21/2024 [id number] ALEGRIA [facility] No family history on file Level of Service:24237 NE POSTOP FOLLOW UP VISIT RELATED TO ORIGINAL PX Normal [facility] 30on 01-16-2024 30 The patient [...] techniques Outcome: Progressing . Normal [facility] BASIC METABOLIC PANELon 12-23 Anion gap [Moles/Vol] 13 mmol/L Normal 7-20 [facility] Comment on above: Performed By: #### L [id number] ####[facility] ([facility])[address] [place] [address] Calcium [Mass/Vol] 8.8 mg/dL Normal 8.6-10.3 [facility] Comment on above: Performed By: #### L [id number] ####[facility] ([facility])[address] [place] [address] Chloride [Moles/Vol] 104 mmol/L Normal 98-107 [facility] Comment on above: Performed By: #### L [id number] ####[facility] ([facility])[address] [place] [address] CO2 [Moles/Vol] 29 mmol/L Normal 21-31 [facility] Comment on above: Performed By: #### L [id number] ####[facility] ([facility])[address] [place] [address] Creatinine [Mass/Vol] 1.02 mg/dL Normal 0.70-1.30 [facility] Comment on above: Performed By: #### L [id number] ####[facility] ([facility])[address] [place] [address] GLOMERULAR FILTRATION RATE ML/MIN/1.73 SQ M.PREDICTED 74.8 mL/min/1.73m*2 Normal >60.0 [facility] Comment on above: Result Comment: [facility]???s estimated glomerular filtration rate (eGFR) [...] of individuals. Performed By: #### L [id number] ####[facility] ([facility])[address] [place] [address] Glucose [Mass/Vol] 99 mg/dL Normal 70-100 [facility] Comment on above: Performed By: #### L [id number] ####[facility] ([facility])[address] [place] [address] Potassium [Moles/Vol] 4.2 mmol/L Normal 3.5-5.1 [facility] Comment on above: Performed By: #### L [id number] ####[facility] ([facility])[address] [place] [address] Sodium [Moles/Vol] 142 mmol/L Normal 136-145 [facility] Comment on above: Performed By: #### L [id number] ####[facility] ([facility])[address] [place] [address] Urea nitrogen [Mass/Vol] 27 mg/dL High 12-15 [facility] Comment on above: Performed By: #### L [id number] ####[facility] ([facility])[address] [place] [address] UREA NITROGEN/CREATININE (MASS RATIO) IN SER/PLAS 26.5 Normal [facility] Comment on above: Performed By: #### L [id number] ####[facility] ([facility])[address] [place] [address] CBC WITH AUTO DIFFERENTIALon 01-16-2024 Basophils (Bld) [#/Vol] 0.03 10*3/uL Normal 0.00-0.20 [facility] Comment on above: Performed By: #### L [id number] #### [facility] ([facility]) [address] [place] [address] Basophils/100 WBC (Bld) 0.4 % Normal 0.0-1.0 [facility] Comment on above: Performed By: #### L [id number] #### [facility] ([facility]) [address] [place] [address] Eosinophils (Bld) [#/Vol] 0.45 10*3/uL Normal 0.00-0.50 [facility] Comment on above: Performed By: #### L [id number] #### [facility] [address] [place] [address] Eosinophils/100 WBC (Bld) 5.7 % Normal 0.0-6.0 [facility] Comment on above: Performed By: #### L [id number] #### [facility] [address] [place] [address] Erythrocyte distribution width (RBC) [Ratio] 14.6 % Normal 11.5-15.0 [facility] Comment on above: Performed By: #### L [id number] #### [facility] [address] [place] [address] ERYTHROCYTE MEAN CORPUSCULAR HEMOGLOBIN CONCENTRATION (G/DL) BY AUTOMATED 31.6 g/dL Low 32.0-35.0 [facility] Comment on above: Performed By: #### L [id number] #### [facility] [address] [place] [address] Hematocrit (Bld) [Volume fraction] 37.7 % Low 39.0-55.0 [facility] Comment on above: Performed By: #### L [id number] #### [facility] ([facility]) [address] [place] [address] Hemoglobin (Bld) [Mass/Vol] 11.9 g/dL Low 13.0-17.0 [facility] Comment on above: Performed By: #### L [id number] #### [facility] [address] [place] [address] Immature granulocytes (Bld) [#/Vol] 0.18 10*3/uL Normal 0.00-0.20 [facility] Comment on above: Performed By: #### L [id number] #### [facility] ([facility]) [address] [place] [address] Immature granulocytes/100 WBC (Bld) 2.3 % High 0.0-1.0 [facility] Comment on above: Performed By: #### L [id number] #### [facility] ([facility]) [address] [place] [address] Lymphocytes (Bld) [#/Vol] 1.51 10*3/uL Normal 1.20-4.00 [facility] Comment on above: Performed By: #### L [id number] #### [facility] ([facility]) [address] [place] [address] Lymphocytes/100 WBC (Bld) 19.3 % Low 20.0-45.0 [facility] Comment on above: Performed By: #### L [id number] #### [facility] ([facility]) [address] [place] [address] MCH (RBC) [Entitic mass] 28.4 pg Normal 27.0-33.0 [facility] Comment on above: Performed By: #### L [id number] #### [facility] ([facility]) [address] [place] [address] MCV (RBC) [Entitic vol] 90.0 fL Normal 82.0-98.0 [facility] Comment on above: Performed By: #### L [id number] #### [facility] ([facility]) [address] [place] [address] Monocytes (Bld) [#/Vol] 0.90 10*3/uL Normal 0.10-1.00 [facility] Comment on above: Performed By: #### L [id number] #### [facility] ([facility]) [address] [place] [address] Monocytes/100 WBC (Bld) 11.5 % Normal 5.0-12.0 [facility] Comment on above: Performed By: #### L [id number] #### [facility] ([facility]) [address] [place] [address] Neutrophils (Bld) [#/Vol] 4.77 10*3/uL Normal 1.60-7.60 [facility] Comment on above: Performed By: #### L [id number] #### [facility] ([facility]) [address] [place] [address] Neutrophils/100 WBC (Bld) 60.8 % Normal 40.0-72.0 [facility] Comment on above: Performed By: #### L [id number] #### [facility] [address] [place] [address] NRBC (PER 100 WBCS) BY AUTOMATED COUNT 0.0 % Normal 0 [facility] Comment on above: Performed By: #### L [id number] #### [facility] ([facility]) [address] [place] [address] PLATELETS (10*3/UL) IN BLOOD AUTOMATED COUNT 159 10*3/uL Normal 150-400 [facility] Comment on above: Performed By: #### L [id number] #### [facility] ([facility]) [address] [place] [address] RBC (Bld) [#/Vol] 4.19 10*6/uL Low 4.20-5.[address] [facility] Comment on above: Performed By: #### L [id number] #### [facility] ([facility]) [address] [place] [address] WBC (Bld) [#/Vol] 7.84 10*3/uL Normal 4.00-10.[address] [facility] Comment on above: Performed By: #### L [id number] #### [facility] ([facility]) [address] [place] [address] NURSNOTEon 01-16-2024 NURSNOTE Pt discharged via [facility] with all belongings and questions answered to pt's satisfaction. Normal [facility] NURSNOTE RN attempted to call report to [facility], no answer Normal [facility] BASIC METABOLIC PANELon 12-23 Anion gap [Moles/Vol] 13 mmol/L Normal 7-20 [facility] Comment on above: Performed By: #### L [id number] ####[facility] [place] [address] Calcium [Mass/Vol] 8.6 mg/dL Normal 8.6-10.3 [facility] Comment on above: Performed By: #### L [id number] ####[facility] [place] [address] Chloride [Moles/Vol] 106 mmol/L Normal 98-107 [facility] Comment on above: Performed By: #### L [id number] ####[facility] ([facility])[address] [place] [address] CO2 [Moles/Vol] 29 mmol/L Normal 21-31 [facility] Comment on above: Performed By: #### L [id number] ####[facility] [place] [address] Creatinine [Mass/Vol] 0.98 mg/dL Normal 0.70-1.30 [facility] Comment on above: Performed By: #### L [id number] ####[facility] ([facility])[address] [place] [address] GLOMERULAR FILTRATION RATE ML/MIN/1.73 SQ M.PREDICTED 78.4 mL/min/1.73m*2 Normal >60.0 [facility] Comment on above: Result Comment: [facility]???s estimated glomerular filtration rate (eGFR) [...] of individuals. Performed By: #### L [id number] ####[facility] [place] [address] Glucose [Mass/Vol] 101 mg/dL High 70-100 [facility] Comment on above: Performed By: #### L [id number] ####[facility] ([facility])[address] [place] [address] Potassium [Moles/Vol] 4.2 mmol/L Normal 3.5-5.1 [facility] Comment on above: Performed By: #### L [id number] ####[facility] ([facility] [place] [address] Sodium [Moles/Vol] 144 mmol/L Normal 136-145 [facility] Comment on above: Performed By: #### L [id number] ####[facility] ([facility])[address] [place] [address] Urea nitrogen [Mass/Vol] 25 mg/dL Normal 7-25 [facility] Comment on above: Performed By: #### L [id number] ####[facility] ([facility])[address] [place] [address] UREA NITROGEN/CREATININE (MASS RATIO) IN SER/PLAS 25.5 Normal [facility] Comment on above: Performed By: #### L [id number] ####[facility] ([facility])[address] [place] [address] CBC WITH AUTO DIFFERENTIALon 01-15-2024 Basophils (Bld) [#/Vol] 0.05 10*3/uL Normal 0.00-0.20 [facility] Comment on above: Performed By: #### L [id number] #### [facility] ([facility]) [address] [place] [address] Basophils/100 WBC (Bld) 0.6 % Normal 0.0-1.0 [facility] Comment on above: Performed By: #### L [id number] #### [facility] ([facility]) [address] [place] [address] Eosinophils (Bld) [#/Vol] 0.53 10*3/uL High 0.00-0.50 [facility] Comment on above: Performed By: #### L [id number] #### [facility] ([facility]) [address] [place] [address] Eosinophils/100 WBC (Bld) 6.7 % High 0.0-6.0 [facility] Comment on above: Performed By: #### L [id number] #### [facility] [address] [place] [address] Erythrocyte distribution width (RBC) [Ratio] 14.9 % Normal 11.5-15.0 [facility] Comment on above: Performed By: #### L [id number] #### [facility] ([facility]) [address] [place] [address] ERYTHROCYTE MEAN CORPUSCULAR HEMOGLOBIN CONCENTRATION (G/DL) BY AUTOMATED 31.3 g/dL Low 32.0-35.0 [facility] Comment on above: Performed By: #### L [id number] #### [facility] ([facility]) [address] [place] [address] Hematocrit (Bld) [Volume fraction] 37.4 % Low 39.0-55.0 [facility] Comment on above: Performed By: #### L [id number] #### [facility] ([facility]) [address] [place] [address] Hemoglobin (Bld) [Mass/Vol] 11.7 g/dL Low 13.0-17.0 [facility] Comment on above: Performed By: #### L [id number] #### [facility] ([facility]) [address] [place] [address] Immature granulocytes (Bld) [#/Vol] 0.14 10*3/uL Normal 0.00-0.20 [facility] Comment on above: Performed By: #### L [id number] #### [facility] ([facility]) [address] [place] [address] Immature granulocytes/100 WBC (Bld) 1.8 % High 0.0-1.0 [facility] Comment on above: Performed By: #### L [id number] #### [facility] ([facility]) [address] [place] [address] Lymphocytes (Bld) [#/Vol] 1.27 10*3/uL Normal 1.20-4.00 [facility] Comment on above: Performed By: #### L [id number] #### [facility] ([facility]) [address] [place] [address] Lymphocytes/100 WBC (Bld) 16.2 % Low 20.0-45.0 [facility] Comment on above: Performed By: #### L [id number] #### [facility] ([facility]) [address] [place] [address] MCH (RBC) [Entitic mass] 28.5 pg Normal 27.0-33.0 [facility] Comment on above: Performed By: #### L [id number] #### [facility] ([facility]) [address] [place] [address] MCV (RBC) [Entitic vol] 91.0 fL Normal 82.0-98.0 [facility] Comment on above: Performed By: #### L [id number] #### [facility] ([facility]) [address] [place] [address] Monocytes (Bld) [#/Vol] 0.81 10*3/uL Normal 0.10-1.00 [facility] Comment on above: Performed By: #### L [id number] #### [facility] ([facility]) [address] [place] [address] Monocytes/100 WBC (Bld) 10.3 % Normal 5.0-12.0 [facility] Comment on above: Performed By: #### L [id number] #### [facility] ([facility]) [address] [place] [address] Neutrophils (Bld) [#/Vol] 5.06 10*3/uL Normal 1.60-7.60 [facility] Comment on above: Performed By: #### L [id number] #### [facility] ([facility]) [address] [place] [address] Neutrophils/100 WBC (Bld) 64.4 % Normal 40.0-72.0 [facility] Comment on above: Performed By: #### L [id number] #### [facility] ([facility]) [address] [place] [address] NRBC (PER 100 WBCS) BY AUTOMATED COUNT 0.0 % Normal 0 [facility] Comment on above: Performed By: #### L [id number] #### [facility] [address] [place] [address] PLATELETS (10*3/UL) IN BLOOD AUTOMATED COUNT 156 10*3/uL Normal 150-400 [facility] Comment on above: Performed By: #### L [id number] #### [facility] ([facility]) [address] [place] [address] RBC (Bld) [#/Vol] 4.11 10*6/uL Low 4.20-5.[address] [facility] Comment on above: Performed By: #### L [id number] #### [facility] ([facility]) [address] [place] [address] WBC (Bld) [#/Vol] 7.86 10*3/uL Normal 4.00-10.[address] [facility] Comment on above: Performed By: #### L [id number] #### [facility] ([facility]) [address] [place] [address] NURSNOTEon 01-15-2024 NURSNOTE Nurse noted pt oxyge n saturation dipping below 92% due to patient sleeping soundly with mouth open. Nurse attempted to apply supplemental oxygen after explaining to patient via communication board. Pt began yelling at nurse and swatting the oxygen tubing away from his face. Will continue to monitor. Normal [facility] 30on 01-14-2024 30 The patient is Moderately [...] these barriers include continuing to encourage sling. Normal [facility] 30 Daily Case Managemen t Update Multidisciplinary rounds have been completed. Barriers to Discharge: Pending medical clearance for discharge. Discharge plan is to [facility] when medically ready. Diet: Dietary Orders (From [...] OT Six Click Score: 14 PT Recommendations: shelter facility placement OT Recommendations: shelter facility placement New Consults: Therapy Orders (From admission, onward) Start Ordered 01/11/24 1348 PT eval and treat Until therapy completed Question: Reason for PT? Answer: eval and treat 01/11/24 1347 01/11/24 1348 OT eval and treat Until therapy completed Question: Reason for OT? Answer: eval and treat 01/11/24 1347 Normal [facility] 30 The patient is Moderately [...] changes in neurological status Normal [facility] BASIC METABOLIC PANELon 12-23 Anion gap [Moles/Vol] 12 mmol/L Normal 7-20 [facility] Comment on above: Performed By: #### L [id number] #### [facility] ([facility]) [address] [place] [address] Calcium [Mass/Vol] 8.5 mg/dL Low 8.6-10.3 [facility] Comment on above: Performed By: #### L [id number] #### [facility] ([facility]) [address] [place] [address] Chloride [Moles/Vol] 104 mmol/L Normal 98-107 [facility] Comment on above: Performed By: #### L [id number] #### [facility] ([facility]) [address] [place] [address] CO2 [Moles/Vol] 30 mmol/L Normal 21-31 [facility] Comment on above: Performed By: #### L [id number] #### [facility] ([facility]) [address] [place] [address] Creatinine [Mass/Vol] 0.93 mg/dL Normal 0.70-1.30 [facility] Comment on above: Performed By: #### L [id number] #### [facility] ([facility]) [address] [place] [address] GLOMERULAR FILTRATION RATE ML/MIN/1.73 SQ M.PREDICTED 83.5 mL/min/1.73m*2 Normal >60.0 [facility] Comment on above: Result Comment: [facility]???s estimated glomerular filtration rate (eGFR) [...] individuals. Performed By: #### L [id number] #### [facility] ([facility]) [address] [place] [address] Glucose [Mass/Vol] 96 mg/dL Normal 70-100 [facility] Comment on above: Performed By: #### L [id number] #### [facility] ([facility]) [address] [place] [address] Potassium [Moles/Vol] 4.5 mmol/L Normal 3.5-5.1 [facility] Comment on above: Performed By: #### L [id number] #### [facility] ([facility]) [address] [place] [address] Sodium [Moles/Vol] 141 mmol/L Normal 136-145 [facility] Comment on above: Performed By: #### L [id number] #### [facility] [address] [place] [address] Urea nitrogen [Mass/Vol] 20 mg/dL Normal 7-25 [facility] Comment on above: Performed By: #### L [id number] #### [facility] [address] [place] [address] UREA NITROGEN/CREATININE (MASS RATIO) IN SER/PLAS 21.5 Normal [facility] Comment on above: Performed By: #### L [id number] #### [facility] [address] [place] [address] CBC WITH AUTO DIFFERENTIALon 01-14-2024 Basophils (Bld) [#/Vol] 0.03 10*3/uL Normal 0.00-0.20 [facility] Comment on above: Performed By: #### L [id number] ####[facility] ([facility])[address] [place] [address] Basophils/100 WBC (Bld) 0.4 % Normal 0.0-1.0 [facility] Comment on above: Performed By: #### L [id number] ####[facility] ([facility])[address] [place] [address] Eosinophils (Bld) [#/Vol] 0.54 10*3/uL High 0.00-0.50 [facility] Comment on above: Performed By: #### L [id number] ####[facility] [place] [address] Eosinophils/100 WBC (Bld) 6.4 % High 0.0-6.0 [facility] Comment on above: Performed By: #### L [id number] ####[facility] [place] [address] Erythrocyte distribution width (RBC) [Ratio] 14.6 % Normal 11.5-15.0 [facility] Comment on above: Performed By: #### L [id number] ####[facility] ([facility])[address] [place] [address] ERYTHROCYTE MEAN CORPUSCULAR HEMOGLOBIN CONCENTRATION (G/DL) BY AUTOMATED 31.9 g/dL Low 32.0-35.0 [facility] Comment on above: Performed By: #### L [id number] ####[facility] ([facility])[address] [place] [address] Hematocrit (Bld) [Volume fraction] 38.6 % Low 39.0-55.0 [facility] Comment on above: Performed By: #### L [id number] ####[facility] ([facility])[address] [place] [address] Hemoglobin (Bld) [Mass/Vol] 12.3 g/dL Low 13.0-17.0 [facility] Comment on above: Performed By: #### L [id number] ####[facility] ([facility])[address] [place] [address] Immature granulocytes (Bld) [#/Vol] 0.16 10*3/uL Normal 0.00-0.20 [facility] Comment on above: Performed By: #### L [id number] ####[facility] ([facility])[address] [place] [address] Immature granulocytes/100 WBC (Bld) 1.9 % High 0.0-1.0 [facility] Comment on above: Performed By: #### L [id number] ####[facility] ([facility])[address] [place] [address] Lymphocytes (Bld) [#/Vol] 1.07 10*3/uL Low 1.20-4.00 [facility] Comment on above: Performed By: #### L [id number] ####[facility] ([facility])[address] [place] [address] Lymphocytes/100 WBC (Bld) 12.7 % Low 20.0-45.0 [facility] Comment on above: Performed By: #### L [id number] ####[facility] ([facility])[address] [place] [address] MCH (RBC) [Entitic mass] 28.5 pg Normal 27.0-33.0 [facility] Comment on above: Performed By: #### L [id number] ####[facility] [place] [address] MCV (RBC) [Entitic vol] 89.4 fL Normal 82.0-98.0 [facility] Comment on above: Performed By: #### L [id number] ####[facility] ([facility])[address] [place] [address] Monocytes (Bld) [#/Vol] 0.59 10*3/uL Normal 0.10-1.00 [facility] Comment on above: Performed By: #### L [id number] ####[facility] ([facility])[address] [place], [place] [address] Monocytes/100 WBC (Bld) 7.0 % Normal 5.0-12.0 [facility] Comment on above: Performed By: #### L [id number] ####[facility] ([facility])[address] [place] [address] Neutrophils (Bld) [#/Vol] 6.01 10*3/uL Normal 1.60-7.60 [facility] Comment on above: Performed By: #### L [id number] ####[facility] [place] [address] Neutrophils/100 WBC (Bld) 71.6 % Normal 40.0-72.0 [facility] Comment on above: Performed By: #### L [id number] ####[facility] [place], [place] [address] NRBC (PER 100 WBCS) BY AUTOMATED COUNT 0.0 % Normal 0 [facility] Comment on above: Performed By: #### L [id number] ####[facility] ([facility])[address] [place], [place] [address] PLATELETS (10*3/UL) IN BLOOD AUTOMATED COUNT 159 10*3/uL Normal 150-400 [facility] Comment on above: Performed By: #### L [id number] ####[facility] ([facility])[address] [place] [address] RBC (Bld) [#/Vol] 4.32 10*6/uL Normal 4.20-5.[address] [facility] Comment on above: Performed By: #### L [id number] ####[facility] ([facility])[address] [place] [address] WBC (Bld) [#/Vol] 8.40 10*3/uL Normal 4.00-10.[address] [facility] Comment on above: Performed By: #### L [id number] ####[facility] ([facility])[address] [place] [address] HEMOGLOBIN AND HEMATOCRIT, B LOODon 01-14-2024 Hematocrit (Bld) [Volume fraction] 42.2 % Normal 39.0-55.0 [facility] Comment on above: Performed By: #### L [id number] ####[facility] ([facility])[address] [place] [address] Hemoglobin (Bld) [Mass/Vol] 13.1 g/dL Normal 13.0-17.0 [facility] Comment on above: Performed By: #### L [id number] ####[facility] ([facility])[address] [place] [address] POCT GLUCOSE METER UNSOLICIT ED RESULTSon 01-14-2024 Glucose [Mass/Vol] 111 mg/dL High 70-105 [facility] Comment on above: Order Comment: Waive d Testing in the ED is performed under the ED CLIA certificate #[id number]. Result Comment: [email or web address] fry Performed By: #### L [id number] ####[facility] [place] [address] Glucose [Mass/Vol] 151 mg/dL High 70-105 [facility] Comment on above: Order Comment: Waive d Testing in the ED is performed under the ED CLIA certificate #[id number]. Result Comment: [email or web address] [email or web address] Performed By: #### L [id number] #### [facility] ([facility]) [address] [place] [address] Glucose [Mass/Vol] 205 mg/dL High 70-105 [facility] Comment on above: Order Comment: Waive d Testing in the ED is performed under the ED CLIA certificate #[id number]. Result Comment: [email or web address] [email or web address] Performed By: #### L [id number] #### [facility] ([facility]) [address] [place] [address] 30on 01-13-2024 30 Problem: Pain Goal: STG-Pt [...] duoneb and lasix received. Normal [facility] 30 Daily Case Managemen t Update Multidisciplinary rounds have been completed. Barriers to Discharge: Pending clinical course and improvement in clinical condition. Pending precert to [facility]; started today. Diet: Dietary Orders [...] OT Six Click Score: 14 PT Recommendations: shelter facility placement OT Recommendations: shelter facility placement New Consults: Therapy Orders (From admission, onward) Start Ordered 01/11/24 1348 PT eval and treat Until therapy completed Question: Reason for PT? Answer: eval and treat 01/11/24 1347 01/11/24 1348 OT eval and treat Until therapy completed Question: Reason for OT? Answer: eval and treat 01/11/24 1347 Normal [facility] 30 The patient is Moderately Stable - Low risk of patient condition declining or worsening The patient's goals for the shift include ALYCIA The clinical goals for the shift include VSS, safety Problem: Respiratory - Adult Goal: Achieves optimal ventilation and oxygenation Recent Flowsheet Documentation Taken 01/12/2024 2000 by Karissa Lancaster RN Achieves optimal ventilation [...] therapy support as indicated Normal [facility] BASIC METABOLIC PANELon 12-23 Anion gap [Moles/Vol] 9 mmol/L Normal 7-20 [facility] Comment on above: Performed By: #### L [id number] #### [facility] ([facility]) [address] [place] [address] Calcium [Mass/Vol] 8.3 mg/dL Low 8.6-10.3 [facility] Comment on above: Performed By: #### L [id number] #### [facility] ([facility]) [address] [place] [address] Chloride [Moles/Vol] 105 mmol/L Normal 98-107 [facility] Comment on above: Performed By: #### L [id number] #### [facility] ([facility]) [address] [place] [address] CO2 [Moles/Vol] 29 mmol/L Normal 21-31 [facility] Comment on above: Performed By: #### L [id number] #### [facility] ([facility]) [address] [place] [address] Creatinine [Mass/Vol] 0.74 mg/dL Normal 0.70-1.30 [facility] Comment on above: Performed By: #### L [id number] #### [facility] ([facility]) [address] [place] [address] GLOMERULAR FILTRATION RATE ML/MIN/1.73 SQ M.PREDICTED 92.2 mL/min/1.73m*2 Normal >60.0 [facility] Comment on above: Result Comment: [facility]???s estimated glomerular filtration rate (eGFR) [...] group of individuals. Performed By: #### L [id number] #### [facility] ([facility]) [address] [place] [address] Glucose [Mass/Vol] 106 mg/dL High 70-100 [facility] Comment on above: Performed By: #### L [id number] #### [facility] ([facility]) [address] [place] [address] Potassium [Moles/Vol] 4.3 mmol/L Normal 3.5-5.1 [facility] Comment on above: Performed By: #### L [id number] #### [facility] ([facility]) [address] [place] [address] Sodium [Moles/Vol] 139 mmol/L Normal 136-145 [facility] Comment on above: Performed By: #### L [id number] #### [facility] [address] [place] [address] Urea nitrogen [Mass/Vol] 16 mg/dL Normal 7-25 [facility] Comment on above: Performed By: #### L [id number] #### [facility] ([facility]) [address] [place] [address] UREA NITROGEN/CREATININE (MASS RATIO) IN SER/PLAS 21.6 Normal [facility] Comment on above: Performed By: #### L [id number] #### [facility] ([facility]) [address] [place] [address] CBC WITH AUTO DIFFERENTIALon 01-13-2024 Basophils (Bld) [#/Vol] 0.04 10*3/uL Normal 0.00-0.20 [facility] Comment on above: Performed By: #### L [id number] #### [facility] ([facility]) [address] [place] [address] Basophils/100 WBC (Bld) 0.5 % Normal 0.0-1.0 [facility] Comment on above: Performed By: #### L [id number] #### [facility] ([facility]) [address] [place] [address] Eosinophils (Bld) [#/Vol] 0.45 10*3/uL Normal 0.00-0.50 [facility] Comment on above: Performed By: #### L [id number] #### [facility] [address] [place] [address] Eosinophils/100 WBC (Bld) 5.9 % Normal 0.0-6.0 [facility] Comment on above: Performed By: #### L [id number] #### [facility] [address] [place] [address] Erythrocyte distribution width (RBC) [Ratio] 14.6 % Normal 11.5-15.0 [facility] Comment on above: Performed By: #### L [id number] #### [facility] [address] [place] [address] ERYTHROCYTE MEAN CORPUSCULAR HEMOGLOBIN CONCENTRATION (G/DL) BY AUTOMATED 31.9 g/dL Low 32.0-35.0 [facility] Comment on above: Performed By: #### L [id number] #### [facility] ([facility]) [address] [place] [address] Hematocrit (Bld) [Volume fraction] 35.7 % Low 39.0-55.0 [facility] Comment on above: Performed By: #### L [id number] #### [facility] ([facility]) [address] [place] [address] Hemoglobin (Bld) [Mass/Vol] 11.4 g/dL Low 13.0-17.0 [facility] Comment on above: Performed By: #### L [id number] #### [facility] [facility] [address] [place] [place] [address] Immature granulocytes (Bld) [#/Vol] 0.15 10*3/uL Normal 0.00-0.20 [facility] Comment on above: Performed By: #### L [id number] #### [facility] ([facility]) [address] [place] [address] Immature granulocytes/100 WBC (Bld) 2.0 % High 0.0-1.0 [facility] Comment on above: Performed By: #### L [id number] #### [facility] ([facility]) [address] [place] [address] Lymphocytes (Bld) [#/Vol] 1.22 10*3/uL Normal 1.20-4.00 [facility] Comment on above: Performed By: #### L [id number] #### [facility] [address] [place] [address] Lymphocytes/100 WBC (Bld) 16.1 % Low 20.0-45.0 [facility] Comment on above: Performed By: #### L [id number] #### [facility] ([facility]) [address] [place] [address] MCH (RBC) [Entitic mass] 28.6 pg Normal 27.0-33.0 [facility] Comment on above: Performed By: #### L [id number] #### [facility] ([facility]) [address] [place] [address] MCV (RBC) [Entitic vol] 89.5 fL Normal 82.0-98.0 [facility] Comment on above: Performed By: #### L [id number] #### [facility] ([facility]) [address] [place] [address] Monocytes (Bld) [#/Vol] 0.83 10*3/uL Normal 0.10-1.00 [facility] Comment on above: Performed By: #### L [id number] #### [facility] ([facility]) [address] [place] [address] Monocytes/100 WBC (Bld) 10.9 % Normal 5.0-12.0 [facility] Comment on above: Performed By: #### L [id number] #### [facility] ([facility]) [address] [place] [address] Neutrophils (Bld) [#/Vol] 4.89 10*3/uL Normal 1.60-7.60 [facility] Comment on above: Performed By: #### L [id number] #### [facility] ([facility]) [address] [place] [address] Neutrophils/100 WBC (Bld) 64.6 % Normal 40.0-72.0 [facility] Comment on above: Performed By: #### L [id number] #### [facility] ([facility]) [address] [place] [address] NRBC (PER 100 WBCS) BY AUTOMATED COUNT 0.0 % Normal 0 [facility] Comment on above: Performed By: #### L [id number] #### [facility] ([facility]) [address] [place] [address] PLATELETS (10*3/UL) IN BLOOD AUTOMATED COUNT 152 10*3/uL Normal 150-400 [facility] Comment on above: Performed By: #### L [id number] #### [facility] ([facility]) [address] [place] [address] RBC (Bld) [#/Vol] 3.99 10*6/uL Low 4.20-5.[address] [facility] Comment on above: Performed By: #### L [id number] #### [facility] ([facility]) [address] [place] [address] WBC (Bld) [#/Vol] 7.58 10*3/uL Normal 4.00-10.[address] [facility] Comment on above: Performed By: #### L [id number] #### [facility] ([facility]) [address] [place] [address] FERRITINon 01-13-2024 FERRITIN (NG/ML) IN SER/PLAS 53.0 ng/mL Normal 24.0-336.0 [facility] Comment on above: Performed By: #### L [id number] #### [facility] ([facility]) [address] [place] [address] FOLATEon 01-13-2024 FOLATE (NG/ML) IN SER/PLAS 12.14 ng/mL Normal 6.6-1000 [facility] Comment on above: Performed By: #### L [id number] ####[facility] [place] [address] IRON AND TIBCon 01-13-2024 IRON (UG/DL) IN SER/PLAS 37 ug/dL Low 50-212 [facility] Comment on above: Performed By: #### L [id number] #### [facility]) [address] [place] [address] IRON BINDING CAPACITY (UG/DL) IN SER/PLAS 244 ug/dL Low 250-450 [facility] Comment on above: Performed By: #### L [id number] #### [facility] ([facility]) [address] [place] [address] IRON BINDING CAPACITY.UNSATURATED (UG/DL) IN SER/PLAS 207.0 ug/dL Normal 155.0-355.0 [facility] Comment on above: Performed By: #### L [id number] #### [facility] ([facility]) [address] [place] [address] IRON SATURATION (%) IN SER/PLAS 15 % Low 20-50 [facility] Comment on above: Performed By: #### L [id number] #### [facility] ([facility]) [address] [place] [address] PHOSPHORUSon 01-13-2024 Magnesium [Mass/Vol] 2.7 mg/dL Normal 2.5-5.0 [facility] Comment on above: Performed By: #### L [id number] #### [facility] ([facility]) [address] [place] [address] POCT GLUCOSE METER UNSOLICIT ED RESULTSon 01-13-2024 Glucose [Mass/Vol] 107 mg/dL High 70-105 [facility] Comment on above: Order Comment: Waive d Testing in the ED is performed under the ED CLIA certificate #[id number]. Result Comment: [email or web address] Performed By: #### L [id number] #### [facility] ([facility]) [address] [place] [address] Glucose [Mass/Vol] 115 mg/dL High 70-105 [facility] Comment on above: Order Comment: Waive d Testing in the ED is performed under the ED CLIA certificate #[id number]. Result Comment: [email or web address] Performed By: #### L [id number] #### [facility] ([facility]) [address] [place] [address] Glucose [Mass/Vol] 164 mg/dL High 70-105 [facility] Comment on above: Order Comment: Waive d Testing in the ED is performed under the ED CLIA certificate #[id number]. Result Comment: [email or web address] Performed By: #### L [id number] #### [facility] ([facility]) [address] [place] [address] Glucose [Mass/Vol] 116 mg/dL High 70-105 [facility] Comment on above: Order Comment: Waive d Testing in the ED is performed under the ED CLIA certificate #[id number]. Result Comment: [email or web address] Performed By: #### L [id number] #### [facility] ([facility]) [address] [place] [address] VITAMIN B12on 01-13-2024 Cobalamin (Vitamin B12) [Mass/Vol] 179 pg/mL Low 180-914 [facility] Comment on above: Result Comment: REFMarlen MORALES RANGES: 180-914 pg/mL Normal 145-179 pg/mL Indeterminate <145 pg/mL Deficient Performed By: #### L [id number] ####[facility] ([place])[address] [place] [address] 30on 01-12-2024 30 Daily Case Managemen t Update Multidisciplinary rounds have been completed. Barriers to Discharge: 01/11- still waiting on pt ot, awaiting SW to confirm return to [place], needs to talk to daughter, aware. Ct head negative for any acute issues. [place] wants to skill, will need precert. cb Diet: Dietary Orders (From admission, onward) Start Ordered 01/12/24 0838 Regular Diet Diet effective now Question: Room Service? Answer: No 01/12/24 0837 01/12/24 0837 Special Kitchen Request Once Comments: General tray please 01/12/24 0837 Physician Expected Discharge Date: 01/12/2024 Discharge Delays: PT Six Click Score: 12 OT Six Click Score: 14 PT Recommendations: OT Recommendations: shelter facility placement New Consults: Consult Orders (From [...] and treat 01/11/24 1347 Normal [facility] CBCon 01-12-2024 Erythrocyte distribution width (RBC) [Ratio] 14.6 % Normal 11.5-15.0 [facility] Comment on above: Performed By: #### L [id number] #### [facility]) [address] [place] [address] ERYTHROCYTE MEAN CORPUSCULAR HEMOGLOBIN CONCENTRATION (G/DL) BY AUTOMATED 32.2 g/dL Normal 32.0-35.0 [facility] Comment on above: Performed By: #### L [id number] #### [facility]) [address] [place] [address] Hematocrit (Bld) [Volume fraction] 34.5 % Low 39.0-55.0 [facility] Comment on above: Performed By: #### L [id number] #### [facility]) [address] [place] [address] Hemoglobin (Bld) [Mass/Vol] 11.1 g/dL Low 13.0-17.0 [facility] Comment on above: Performed By: #### L [id number] #### [facility]) [address] [place] [address] MCH (RBC) [Entitic mass] 28.8 pg Normal 27.0-33.0 [facility] Comment on above: Performed By: #### L [id number] #### [facility] ([facility]) [address] [place] [address] MCV (RBC) [Entitic vol] 89.4 fL Normal 82.0-98.0 [facility] Comment on above: Performed By: #### L [id number] #### [facility] ([facility]) [address] [place] [address] PLATELETS (10*3/UL) IN BLOOD AUTOMATED COUNT 146 10*3/uL Low 150-400 [facility] Comment on above: Performed By: #### L [id number] #### [facility] ([facility]) [address] [place] [address] RBC (Bld) [#/Vol] 3.86 10*6/uL Low 4.20-5.[address] [facility] Comment on above: Performed By: #### L [id number] #### [facility] ([facility]) [address] [place] [address] WBC (Bld) [#/Vol] 8.81 10*3/uL Normal 4.00-10.[address] [facility] Comment on above: Performed By: #### L [id number] #### [facility] ([facility]) [address] [place] [address] COMPREHENSIVE METABOLIC PANE Michael 01-12-2024 Albumin [Mass/Vol] 3.1 g/dL Low 3.5-5.7 [facility] Comment on above: Performed By: #### L [id number] #### [facility] ([facility]) [address] [place] [address] ALP [Catalytic activity/Vol] 33 U/L Low 34-104 [facility] Comment on above: Performed By: #### L [id number] #### [facility] ([facility]) [address] [place] [address] ALT [Catalytic activity/Vol] 17 U/L Normal 7-52 [facility] Comment on above: Performed By: #### L [id number] #### [facility] ([facility]) [address] [place] [address] Anion gap [Moles/Vol] 11 mmol/L Normal 7-20 [facility] Comment on above: Performed By: #### L [id number] #### [facility] ([facility]) [address] [place] [address] AST [Catalytic activity/Vol] 16 U/L Normal 13-39 [facility] Comment on above: Performed By: #### L [id number] #### [facility] ([facility]) [address] [place] [address] Bilirubin [Mass/Vol] 0.4 mg/dL Normal 0.3-1.0 [facility] Comment on above: Performed By: #### L [id number] #### [facility] ([facility]) [address] [place] [address] Calcium [Mass/Vol] 8.4 mg/dL Low 8.6-10.3 [facility] Comment on above: Performed By: #### L [id number] #### [facility] ([facility]) [address] [address] Chloride [Moles/Vol] 103 mmol/L Normal 98-107 [facility] Comment on above: Performed By: #### L [id number] #### [facility] ([facility]) [address] [place] [address] CO2 [Moles/Vol] 28 mmol/L Normal 21-31 [facility] Comment on above: Performed By: #### L [id number] #### [facility] ([facility]) [address] [place] [address] Creatinine [Mass/Vol] 0.84 mg/dL Normal 0.70-1.30 [facility] Comment on above: Performed By: #### L [id number] #### [facility] ([facility]) [address] [place] [address] GLOMERULAR FILTRATION RATE ML/MIN/1.73 SQ M.PREDICTED 88.7 mL/min/1.73m*2 Normal >60.0 [facility] Comment on above: Result Comment: [facility]???s estimated glomerular filtration rate (eGFR) [...] group of individuals. Performed By: #### L [id number] #### [facility] [address] [place] [address] Glucose [Mass/Vol] 85 mg/dL Normal 70-100 [facility] Comment on above: Performed By: #### L [id number] #### [facility] [address] [place] [address] Potassium [Moles/Vol] 4.0 mmol/L Normal 3.5-5.1 [facility] Comment on above: Performed By: #### L [id number] #### [facility]) [address] [place] [address] Protein [Mass/Vol] 5.4 g/dL Low 6.0-8.3 [facility] Comment on above: Performed By: #### L [id number] #### [facility]) [address] [place] [address] Sodium [Moles/Vol] 138 mmol/L Normal 136-145 [facility] Comment on above: Performed By: #### L [id number] #### [facility] [address] [place] [address] Urea nitrogen [Mass/Vol] 19 mg/dL Normal 7-25 [facility] Comment on above: Performed By: #### L [id number] #### [facility] ([facility]) [address] [place] [address] UREA NITROGEN/CREATININE (MASS RATIO) IN SER/PLAS 22.6 Normal [facility] Comment on above: Performed By: #### L [id number] #### [facility] [address] [place] [address] CONSULTon 01-12-2024 CONSULT Reason For Consult: s/p [...] Injury 78 y.o. male who presented to [facility] on 01/09/24 as a transfer from [facility] for symptomatic bradycardia with complete heart block. Patient with a history of dementia, difficulty answering questions thoroughly because of dementia and hearing loss. Majority of history obtained via chart review. Patient with multiple episodes of presyncope reported prior to admission. No clearly documented falls. On arrival to [facility] he was noted to have a heart rate in the 30s. He was transferred to [facility] for Cardiology evaluation and underwent PPM placement [...] history of COPD (chronic obstructive pulmonary disease) ([facility]), Seizure ([facility]), and Sleep apnea. Past Surgical History: has [...] for allergies. cholecalciferol (Vitamin D-3) 50 MCG (1999 [place]) tablet Take 2,000 Units by mouth [...] on file. Objective Vitals: BP: (100-141)/(41-56) 128/53 (01/12 1200) Temp: [36.2 ???C (97.2 ???F)-36.7 ???C (98.1 ???F)] 36.5 ???C (97.7 ???F) (01/12 1200) Temp Source: Temporal (01/12 1200) Heart Rate: [61-82] 75 (01/11 1210) Resp: [15-29] 20 (01/11 1210) SpO2: [93 %-98 %] 94 % (01/11 1210) Height: -- Weight: -- Candelario Coma Scale [...] (more content not included)... Normal [facility] CT CERVICAL SPINE WO IV CONT RASTon 01-12-2024 CT CERVICAL SPINE WO IV CONTRAST [...] reasonably achievable. Electronically signed: Kan Nicole. Not Vlsuzy Invalid Interpretation Code [facility] Comment on above: Order Comment: [...] reasonably achievable. Electronically signed: Kan Nicole. Not Vldtmat Invalid Interpretation Code [facility] MAGNESIUMon 01-12-2024 Magnesium [Mass/Vol] 2.0 mg/dL Normal 1.9-2.7 [facility] Comment on above: Performed By: #### L [id number] #### [facility] ([facility]) [address] [place] [address] PHOSPHORUSon 01-12-2024 Magnesium [Mass/Vol] 2.1 mg/dL Low 2.5-5.0 [facility] Comment on above: Performed By: #### L [id number] #### [facility] ([facility]) [address] [place] [address] POCT GLUCOSE METER UNSOLICIT ED RESULTSon 01-12-2024 Glucose [Mass/Vol] 153 mg/dL High 70-105 [facility] Comment on above: Order Comment: Waive d Testing in the ED is performed under the ED CLIA certificate #[id number]. Result Comment: [email or web address] Performed By: #### L [id number] #### [facility] ([facility]) [address] [place] [address] Glucose [Mass/Vol] 134 mg/dL High 70-105 [facility] Comment on above: Order Comment: Waive d Testing in the ED is performed under the ED CLIA certificate #[id number]. Result Comment: [email or web address] Performed By: #### L [id number] ####[facility] ([facility])[address] [place] [address] Glucose [Mass/Vol] 210 mg/dL High 70-105 [facility] Comment on above: Order Comment: Waive d Testing in the ED is performed under the ED CLIA certificate #[id number]. Result Comment: [email or web address] Performed By: #### L [id number] #### [facility] ([facility]) [address] [place] [address] Glucose [Mass/Vol] 103 mg/dL Normal 70-105 [facility] Comment on above: Order Comment: Waive d Testing in the ED is performed under the ED CLIA certificate #[id number]. Result Comment: [email or web address] Performed By: #### L [id number] #### [facility] ([facility]) [address] [place] [address] 30on 01-11-2024 30 Daily Case Managemen t Update Multidisciplinary rounds have been completed. Barriers to Discharge: 01/10- s/p Video [employer] DC-PPM. No overnight events. Mentation appears improved/back to baseline. PT OT ordered, from [facility]? Not sure if returning. On [...] and treat 01/11/24 1347 Normal [facility] AMMONIAon 01-11-2024 AMMONIA (UMOL/L) IN PLASMA 41 umol/L Normal 18-72 [facility] Comment on above: Performed By: #### L [id number] #### [facility] ([facility]) [address] [place] [address] B-TYPE NATRIURETIC PEPTIDEon 01-11-2024 Natriuretic peptide B (Bld) [Mass/Vol] 1312 pg/mL High 0-100 [facility] Comment on above: Performed By: #### L [id number] #### [facility] ([facility]) [address] [place] [address] BASIC METABOLIC PANELon 08- 0 Anion gap [Moles/Vol] 10 mmol/L Normal 7-20 [facility] Comment on above: Performed By: #### L [id number] ####[facility] ([facility])[address] [place] [address] Calcium [Mass/Vol] 8.3 mg/dL Low 8.6-10.3 [facility] Comment on above: Performed By: #### L [id number] ####[facility] [place] [address] Chloride [Moles/Vol] 104 mmol/L Normal 98-107 [facility] Comment on above: Performed By: #### L [id number] ####[facility] [place] [address] CO2 [Moles/Vol] 26 mmol/L Normal 21-31 [facility] Comment on above: Performed By: #### L [id number] ####[facility] [place] [address] Creatinine [Mass/Vol] 0.84 mg/dL Normal 0.70-1.30 [facility] Comment on above: Performed By: #### L [id number] ####[facility] ([facility])[address] [place] [address] GLOMERULAR FILTRATION RATE ML/MIN/1.73 SQ M.PREDICTED 88.7 mL/min/1.73m*2 Normal >60.0 [facility] Comment on above: Result Comment: [facility]???s estimated glomerular filtration rate (eGFR) [...] of individuals. Performed By: #### L [id number] ####[facility] [place] [address] Glucose [Mass/Vol] 118 mg/dL High 70-100 [facility] Comment on above: Performed By: #### L [id number] ####[facility] ([facility])[address] [place] [address] Potassium [Moles/Vol] 4.0 mmol/L Normal 3.5-5.1 [facility] Comment on above: Performed By: #### L [id number] ####[facility] ([facility])[address] [place] [address] Sodium [Moles/Vol] 136 mmol/L Normal 136-145 [facility] Comment on above: Performed By: #### L [id number] ####[facility] ([facility])[address] [place] [address] Urea nitrogen [Mass/Vol] 29 mg/dL High 7-25 [facility] Comment on above: Performed By: #### L [id number] ####[facility] ([facility])[address] [place] [address] UREA NITROGEN/CREATININE (MASS RATIO) IN SER/PLAS 34.5 Normal [facility] Comment on above: Performed By: #### L [id number] ####[facility] ([facility])[address] [place] [address] CBC WITH AUTO DIFFERENTIALon 01-11-2024 Basophils (Bld) [#/Vol] 0.04 10*3/uL Normal 0.00-0.20 [facility] Comment on above: Performed By: #### L [id number] #### [facility] ([facility]) [address] [place] [address] Basophils/100 WBC (Bld) 0.5 % Normal 0.0-1.0 [facility] Comment on above: Performed By: #### L [id number] #### [facility] ([facility]) [address] [place] [address] Eosinophils (Bld) [#/Vol] 0.57 10*3/uL High 0.00-0.50 [facility] Comment on above: Performed By: #### L [id number] #### [facility] ([facility]) [address] [place] [address] Eosinophils/100 WBC (Bld) 7.7 % High 0.0-6.0 [facility] Comment on above: Performed By: #### L [id number] #### [facility] ([facility]) [address] [place] [address] Erythrocyte distribution width (RBC) [Ratio] 14.6 % Normal 11.5-15.0 [facility] Comment on above: Performed By: #### L [id number] #### [facility] ([facility]) [address] [place] [address] ERYTHROCYTE MEAN CORPUSCULAR HEMOGLOBIN CONCENTRATION (G/DL) BY AUTOMATED 32.9 g/dL Normal 32.0-35.0 [facility] Comment on above: Performed By: #### L [id number] #### [facility] ([facility]) [address] [place] [address] Hematocrit (Bld) [Volume fraction] 34.0 % Low 39.0-55.0 [facility] Comment on above: Performed By: #### L [id number] #### [facility] ([facility] [address] [place] [address] Hemoglobin (Bld) [Mass/Vol] 11.2 g/dL Low 13.0-17.0 [facility] Comment on above: Performed By: #### L [id number] #### [facility] [address] [place] [address] Immature granulocytes (Bld) [#/Vol] 0.06 10*3/uL Normal 0.00-0.20 [facility] Comment on above: Performed By: #### L [id number] #### [facility] ([facility]) [address] [place] [address] Immature granulocytes/100 WBC (Bld) 0.8 % Normal 0.0-1.0 [facility] Comment on above: Performed By: #### L [id number] #### [facility] [address] [place] [address] Lymphocytes (Bld) [#/Vol] 0.80 10*3/uL Low 1.20-4.00 [facility] Comment on above: Performed By: #### L [id number] #### [facility] ([facility]) [address] [place] [address] Lymphocytes/100 WBC (Bld) 10.8 % Low 20.0-45.0 [facility] Comment on above: Performed By: #### L [id number] #### [facility] ([facility]) [address] [place] [address] MCH (RBC) [Entitic mass] 28.5 pg Normal 27.0-33.0 [facility] Comment on above: Performed By: #### L [id number] #### [facility] ([facility]) [address] [place] [address] MCV (RBC) [Entitic vol] 86.5 fL Normal 82.0-98.0 [facility] Comment on above: Performed By: #### L [id number] #### [facility] ([facility]) [address] [place] [address] Monocytes (Bld) [#/Vol] 0.70 10*3/uL Normal 0.10-1.00 [facility] Comment on above: Performed By: #### L [id number] #### [facility] ([facility]) [address] [place] [address] Monocytes/100 WBC (Bld) 9.4 % Normal 5.0-12.0 [facility] Comment on above: Performed By: #### L [id number] #### [facility] ([facility]) [address] [place] [address] Neutrophils (Bld) [#/Vol] 5.27 10*3/uL Normal 1.60-7.60 [facility] Comment on above: Performed By: #### L [id number] #### [facility] [address] [place] [address] Neutrophils/100 WBC (Bld) 70.8 % Normal 40.0-72.0 [facility] Comment on above: Performed By: #### L [id number] #### [facility] ([facility]) [address] [address] NRBC (PER 100 WBCS) BY AUTOMATED COUNT 0.0 % Normal 0 [facility] Comment on above: Performed By: #### L [id number] #### [facility] ([facility]) [address] [place] [address] PLATELETS (10*3/UL) IN BLOOD AUTOMATED COUNT 155 10*3/uL Normal 150-400 [facility] Comment on above: Performed By: #### L [id number] #### [facility] ([facility]) [address] [place] [address] RBC (Bld) [#/Vol] 3.93 10*6/uL Low 4.20-5.[address] [facility] Comment on above: Performed By: #### L [id number] #### [facility] ([facility]) [address] [address] WBC (Bld) [#/Vol] 7.44 10*3/uL Normal 4.00-10.[address] [facility] Comment on above: Performed By: #### L [id number] #### [facility] ([facility]) [address] [address] MAGNESIUMon 01-11-2024 Magnesium [Mass/Vol] 2.3 mg/dL Normal 1.9-2.7 [facility] Comment on above: Performed By: #### L [id number] #### [facility] ([facility]) [address] [place] [address] PHOSPHORUSon 01-11-2024 Magnesium [Mass/Vol] 2.0 mg/dL Low 2.5-5.0 [facility] Comment on above: Performed By: #### L [id number] ####[facility] ([facility])[address] [place] [address] POCT GLUCOSE METER UNSOLICIT ED RESULTSon 01-11-2024 Glucose [Mass/Vol] 151 mg/dL High 70-105 [facility] Comment on above: Order Comment: Waive d Testing in the ED is performed under the ED CLIA certificate #[id number]. Result Comment: [email or web address] ran Performed By: #### L [id number] #### [facility] ([facility]) [address] [place] [address] Glucose [Mass/Vol] 157 mg/dL High 70-105 [facility] Comment on above: Order Comment: Waive d Testing in the ED is performed under the ED CLIA certificate #[id number]. Result Comment: pop wei Performed By: #### L [id number] #### [facility] ([facility]) [address] [place] [address] Glucose [Mass/Vol] 150 mg/dL High 70-105 [facility] Comment on above: Order Comment: Waive d Testing in the ED is performed under the ED CLIA certificate #[id number]. Result Comment: [email or web address] art Performed By: #### L [id number] #### [facility] ([facility]) [address] [place] [address] Glucose [Mass/Vol] 127 mg/dL High 70-105 [facility] Comment on above: Order Comment: Waive d Testing in the ED is performed under the ED CLIA certificate #[id number]. Result Comment: pop wei Performed By: #### L [id number] #### [facility] ([facility]) [address] [place] [address] PROCALCITONIN TESTon 024 PROCALCITONIN IN BLOOD 0.09 ng/mL Normal 0.00-0.10 [facility] Comment on above: Result Comment: [...] and initial PCT<0.5ng/mL Performed By: #### L [id number] #### [facility] ([facility]) [address] [place] [address] 30on 01-10-2024 30 Daily Case Managemen t Update Multidisciplinary rounds have been completed. Barriers to Discharge: 01/09- patient came here from [facility] with a complete heart block. (Not [...] Score: PT Recommendations: OT Recommendations: New Consults: [place] [facility] Chapis 01-10-2024 ANES -- Attestation [...] 01/10/24 1300 Procedure: Pacemaker DC new Location: [facility] KAIAKO KOHANGA RE[facility] 1 / [facility] (Cath) Providers: Reno Welch [...] fellow. Additional Equipment Requests Normal [facility] BASIC METABOLIC PANELon 12-22 Anion gap [Moles/Vol] 15 mmol/L Normal 7-20 [facility] Comment on above: Performed By: #### L [id number] #### [facility] ([facility]) [address] [place] [address] Calcium [Mass/Vol] 8.4 mg/dL Low 8.6-10.3 [facility] Comment on above: Performed By: #### L [id number] #### [facility] ([facility]) [address] [place] [address] Chloride [Moles/Vol] 97 mmol/L Low 98-107 [facility] Comment on above: Performed By: #### L [id number] #### [facility] ([facility]) [address] [place] [address] CO2 [Moles/Vol] 21 mmol/L Normal 21-31 [facility] Comment on above: Performed By: #### L [id number] #### [facility] ([facility]) [address] [place] [address] Creatinine [Mass/Vol] 1.12 mg/dL Normal 0.70-1.30 [facility] Comment on above: Performed By: #### L [id number] #### [facility] ([facility]) [address] [place] [address] GLOMERULAR FILTRATION RATE ML/MIN/1.73 SQ M.PREDICTED 66.8 mL/min/1.73m*2 Normal >60.0 [facility] Comment on above: Result Comment: The [facility]???s estimated glomerular filtration rate (eGFR) [...] group of individuals. Performed By: #### L [id number] #### [facility] ([facility]) [address] [place] [address] Glucose [Mass/Vol] 212 mg/dL High 70-100 [facility] Comment on above: Performed By: #### L [id number] #### [facility] ([facility]) [address] [place] [address] Potassium [Moles/Vol] 3.9 mmol/L Normal 3.5-5.1 [facility] Comment on above: Performed By: #### L [id number] #### [facility] ([facility]) [address] [place] [address] Sodium [Moles/Vol] 129 mmol/L Low 136-145 [facility] Comment on above: Performed By: #### L [id number] #### [facility] ([facility]) [address] [place] [address] Urea nitrogen [Mass/Vol] 56 mg/dL High 7-25 [facility] Comment on above: Performed By: #### L [id number] #### [facility] ([facility]) [address] [place] [address] UREA NITROGEN/CREATININE (MASS RATIO) IN SER/PLAS 50.0 Normal [facility] Comment on above: Performed By: #### L [id number] #### [facility] ([facility]) [address] [place] [address] CBC WITH AUTO DIFFERENTIALon 01-10-2024 Basophils (Bld) [#/Vol] 0.05 10*3/uL Normal 0.00-0.20 [facility] Comment on above: Performed By: #### L [id number] #### [facility] ([facility]) [address] [place] [address] Basophils/100 WBC (Bld) 0.5 % Normal 0.0-1.0 [facility] Comment on above: Performed By: #### L [id number] #### [facility] [address] [place] [address] Eosinophils (Bld) [#/Vol] 0.24 10*3/uL Normal 0.00-0.50 [facility] Comment on above: Performed By: #### L [id number] #### [facility] [address] [place] [address] Eosinophils/100 WBC (Bld) 2.6 % Normal 0.0-6.0 [facility] Comment on above: Performed By: #### L [id number] #### [facility] ([facility]) [address] [place] [address] Erythrocyte distribution width (RBC) [Ratio] 14.7 % Normal 11.5-15.0 [facility] Comment on above: Performed By: #### L [id number] #### [facility] ([facility]) [address] [place] [address] ERYTHROCYTE MEAN CORPUSCULAR HEMOGLOBIN CONCENTRATION (G/DL) BY AUTOMATED 32.4 g/dL Normal 32.0-35.0 [facility] Comment on above: Performed By: #### L [id number] #### [facility] ([facility]) [address] [place] [address] Hematocrit (Bld) [Volume fraction] 35.2 % Low 39.0-55.0 [facility] Comment on above: Performed By: #### L [id number] #### [facility] ([facility]) [address] [place] [address] Hemoglobin (Bld) [Mass/Vol] 11.4 g/dL Low 13.0-17.0 [facility] Comment on above: Performed By: #### L [id number] #### [facility] ([facility]) [address] [place] [address] Immature granulocytes (Bld) [#/Vol] 0.13 10*3/uL Normal 0.00-0.20 [facility] Comment on above: Performed By: #### L [id number] #### [facility] [address] [place] [address] Immature granulocytes/100 WBC (Bld) 1.4 % High 0.0-1.0 [facility] Comment on above: Performed By: #### L [id number] #### [facility] [address] [place] [address] Lymphocytes (Bld) [#/Vol] 1.41 10*3/uL Normal 1.20-4.00 [facility] Comment on above: Performed By: #### L [id number] #### [facility] [address] [place] [address] Lymphocytes/100 WBC (Bld) 15.1 % Low 20.0-45.0 [facility] Comment on above: Performed By: #### L [id number] #### [facility] ([facility]) [address] [place] [address] MCH (RBC) [Entitic mass] 28.5 pg Normal 27.0-33.0 [facility] Comment on above: Performed By: #### L [id number] #### [facility] ([facility]) [address] [place] [address] MCV (RBC) [Entitic vol] 88.0 fL Normal 82.0-98.0 [facility] Comment on above: Performed By: #### L [id number] #### [facility] ([facility]) [address] [place] [address] Monocytes (Bld) [#/Vol] 1.04 10*3/uL High 0.10-1.00 [facility] Comment on above: Performed By: #### L [id number] #### [facility] [address] [place] [address] Monocytes/100 WBC (Bld) 11.1 % Normal 5.0-12.0 [facility] Comment on above: Performed By: #### L [id number] #### [facility] ([facility]) [address] [place] [address] Neutrophils (Bld) [#/Vol] 6.49 10*3/uL Normal 1.60-7.60 [facility] Comment on above: Performed By: #### L [id number] #### [facility] ([facility]) [address] [place] [address] Neutrophils/100 WBC (Bld) 69.3 % Normal 40.0-72.0 [facility] Comment on above: Performed By: #### L [id number] #### [facility] [address] [place] [address] NRBC (PER 100 WBCS) BY AUTOMATED COUNT 0.0 % Normal 0 [facility] Comment on above: Performed By: #### L [id number] #### [facility] ([facility]) [address] [place] [address] PLATELETS (10*3/UL) IN BLOOD AUTOMATED COUNT 168 10*3/uL Normal 150-400 [facility] Comment on above: Performed By: #### L [id number] #### [facility] ([facility]) [address] [place] [address] RBC (Bld) [#/Vol] 4.00 10*6/uL Low 4.20-5.[address] [facility] Comment on above: Performed By: #### L [id number] #### [facility] ([facility]) [address] [place] [address] WBC (Bld) [#/Vol] 9.36 10*3/uL Normal 4.00-10.[address] [facility] Comment on above: Performed By: #### L [id number] #### [facility] ([facility]) [address] [place] [address] CT HEAD WO IV CONTRASTon CT HEAD [...] Orbits are only partially included in the [id number]. Mild mucosal thickening of the paranasal sinuses. [...] MD. 9 Invalid Interpretation Code [facility] HPon 01-10-2024 HP -- Attestation [...] are no changes to the H&P.plan for [facility] today Normal [facility] MAGNESIUMon 01-10-2024 Magnesium [Mass/Vol] 1.7 mg/dL Low 1.9-2.7 [facility] Comment on above: Performed By: #### L [id number] #### [facility] ([facility]) [address] [place] [address] MRSA/MSSA DNA NASALon 2023 MRSA DNA Positive Abnormal Negative [facility] Comment on above: Order Comment: [...] preclude nasal colonization. Performed By: #### L [id number] #### [facility] ([facility]) [address] [place] [address] MSSA DNA Negative Normal Negative [facility] Comment on above: Order Comment: [...] preclude nasal colonization. Performed By: #### L [id number] #### [facility] ([facility]) [address] [place] [address] PHOSPHORUSon 01-10-2024 Magnesium [Mass/Vol] 2.0 mg/dL Low 2.5-5.0 [facility] Comment on above: Performed By: #### L [id number] #### [facility] ([facility]) [address] [place] [address] POCT GLUCOSE METER UNSOLICIT ED RESULTSon 01-10-2024 Glucose [Mass/Vol] 109 mg/dL High 70-105 [facility] Comment on above: Order Comment: Waive d Testing in the ED is performed under the ED CLIA certificate #[id number]. Result Comment: [email or web address] licona Performed By: #### L [id number] #### [facility] [address] [place] [address] Glucose [Mass/Vol] 172 mg/dL High 70-105 [facility] Comment on above: Order Comment: Waive d Testing in the ED is performed under the ED CLIA certificate #[id number]. Result Comment: pop [email or web address] Performed By: #### L [id number] #### [facility] ([facility]) [address] [place] [address] Glucose [Mass/Vol] 250 mg/dL High 70-105 [facility] Comment on above: Order Comment: Waive d Testing in the ED is performed under the ED CLIA certificate #[id number]. Result Comment: pop [email or web address] Performed By: #### L [id number] ####[facility] ([facility])[address] [place] [address] Glucose [Mass/Vol] 241 mg/dL High 70-105 [facility] Comment on above: Order Comment: Waive d Testing in the ED is performed under the ED CLIA certificate #[id number]. Result Comment: [email or web address] licona Performed By: #### L [id number] ####[facility] ([facility])[address] [place] [address] Glucose [Mass/Vol] 227 mg/dL High 70-105 [facility] Comment on above: Order Comment: Waive d Testing in the ED is performed under the ED CLIA certificate #[id number]. Result Comment: [email or web address] licona Performed By: #### L [id number] #### [facility] ([facility]) [address] [place] [address] URINALYSISon 01-10-2024 BILIRUBIN, TOTAL PRESENCE IN URINE Negative Normal Negative [facility] Comment on above: Order Comment: Micro scopics not performed on urines with negative chemical reactions unless requested on original order. Performed By: #### L [id number] #### [facility] ([facility]) [address] [place] [address] Clarity (U) Clear Normal Clear [facility] Comment on above: Order Comment: Micro scopics not performed on urines with negative chemical reactions unless requested on original order. Performed By: #### L [id number] #### [facility] ([facility]) [address] [place] [address] Color (U) Straw Abnormal Yellow [facility] Comment on above: Order Comment: Micro scopics not performed on urines with negative chemical reactions unless requested on original order. Performed By: #### L [id number] #### [facility] ([facility]) [address] [place] [address] Glucose (U) [Mass/Vol] Negative Normal Negative [facility] on above: Order Comment: Micro scopics not performed on urines with negative chemical reactions unless requested on original order. Performed By: #### L [id number] #### [facility] ([facility]) [address] [place] [address] HEMOGLOBIN PRESENCE IN URINE Negative Normal Negative [facility] Comment on above: Order Comment: Micro scopics not performed on urines with negative chemical reactions unless requested on original order. Performed By: #### L [id number] #### [facility] ([facility]) [address] [place] [address] Ketones Ql (U) Trace Abnormal Negative [facility] Comment on above: Order Comment: Micro scopics not performed on urines with negative chemical reactions unless requested on original order. Performed By: #### L [id number] #### [facility] ([facility]) [address] [place] [address] LEUKOCYTE ESTERASE PRESENCE IN URINE BY TEST STRIP Negative Normal Negative [facility] Comment on above: Order Comment: Micro scopics not performed on urines with negative chemical reactions unless requested on original order. Performed By: #### L [id number] #### [facility] ([facility]) [address] [place] [address] NITRITE PRESENCE IN URINE Negative Normal Negative [facility] Comment on above: Order Comment: Micro scopics not performed on urines with negative chemical reactions unless requested on original order. Performed By: #### L [id number] #### [facility] ([facility]) [address] [place] [address] pH (U) 7.0 [pH] Normal 5.0-8.0 [facility] Comment on above: Order Comment: Micro scopics not performed on urines with negative chemical reactions unless requested on original order. Performed By: #### L [id number] #### [facility] ([facility]) [address] [place] [address] Protein (U) [Mass/Vol] Negative Normal [facility]: Order Comment: Micro scopics not performed on urines with negative chemical reactions unless requested on original order. Performed By: #### L [id number] #### [facility] ([facility]) [address] [place] [address] Specific gravity (U) [Rel density] 1.006 Low 1.015-1.020 [facility] Comment on above: Order Comment: Micro scopics not performed on urines with negative chemical reactions unless requested on original order. Performed By: #### L [id number] #### [facility] ([facility]) [address] [place] [address] 30on 01-09-2024 30 The patient is Moderately Stable - Low risk of patient condition declining or worsening The patient's goals for the shift include The clinical goals for the shift include Over the shift, the patient did not make progress toward the following goals. Normal [facility] APTTon 01-09-2024 ACTIVATED PARTIAL THROMBOPLASTIN TIME IN PPP BY COAGULATION ASSAY 25.9 Seconds Normal 25.0-35.0 [facility] Comment on above: Result Comment: Clin ical significance of the APTT is questionable in the presence of heparin. Performed By: #### L [id number] #### [facility] [facility] ([facility]) [address] [place] [address] BASIC METABOLIC PANELon 12-22 Anion gap [Moles/Vol] 12 mmol/L Normal 7-20 [facility] Comment on above: Performed By: #### L [id number] ####[facility] ([facility] [place] [address] Calcium [Mass/Vol] 8.9 mg/dL Normal 8.6-10.3 [facility] Comment on above: Performed By: #### L [id number] ####[facility] ([facility] [place] [address] Chloride [Moles/Vol] 101 mmol/L Normal 98-107 [facility] Comment on above: Performed By: #### L [id number] ####[facility] ([facility] [place] [address] CO2 [Moles/Vol] 27 mmol/L Normal 21-31 [facility] Comment on above: Performed By: #### L [id number] ####[facility] ([facility] [place] [address] Creatinine [Mass/Vol] 1.33 mg/dL High 0.70-1.30 [facility] Comment on above: Performed By: #### L [id number] ####[facility] ([facility] [place] [address] GLOMERULAR FILTRATION RATE ML/MIN/1.73 SQ M.PREDICTED 54.4 mL/min/1.73m*2 Low >60.0 [facility] Comment on above: Result Comment: [facility]???s estimated glomerular filtration rate (eGFR) [...] of individuals. Performed By: #### L [id number] ####[facility] ([facility] [place] [address] Glucose [Mass/Vol] 181 mg/dL High 70-100 [facility] Comment on above: Performed By: #### L [id number] ####[facility] ([facility] [place] [address] Potassium [Moles/Vol] 4.3 mmol/L Normal 3.5-5.1 [facility] Comment on above: Performed By: #### L [id number] ####[facility] ([facility])[address] [place] [address] Sodium [Moles/Vol] 136 mmol/L Normal 136-145 [facility] Comment on above: Performed By: #### L [id number] ####[facility] ([facility])[address] [place] [address] Urea nitrogen [Mass/Vol] 73 mg/dL High 7-25 [facility] Comment on above: Performed By: #### L [id number] ####[facility] ([facility])[address] [place] [address] UREA NITROGEN/CREATININE (MASS RATIO) IN SER/PLAS 54.9 Normal [facility] Comment on above: Performed By: #### L [id number] ####[facility] ([facility] [place] [address] BLOOD CULTUREon 01-09-2024 Bacteria identified Cx Nom (Bld) No growth at 5 days Normal [facility] Comment on above: Performed By: #### L [id number] ####[facility] ([facility] [place] [address] Order Comment: From a different site than #1. Performed By: #### L [id number] #### [facility] [address] [place] [address] CBC WITH AUTO DIFFERENTIALon 01-09-2024 Basophils (Bld) [#/Vol] 0.03 10*3/uL Normal 0.00-0.20 [facility] Comment on above: Performed By: #### L [id number] #### [facility]) [address] [place] [address] Basophils/100 WBC (Bld) 0.2 % Normal 0.0-1.0 [facility] Comment on above: Performed By: #### L [id number] #### [facility]) [address] [place] [address] Eosinophils (Bld) [#/Vol] 0.30 10*3/uL Normal 0.00-0.50 [facility] Comment on above: Performed By: #### L [id number] #### [facility]) [address] [place] [address] Eosinophils/100 WBC (Bld) 2.5 % Normal 0.0-6.0 [facility] Comment on above: Performed By: #### L [id number] #### [facility]) [address] [place] [address] Erythrocyte distribution width (RBC) [Ratio] 14.5 % Normal 11.5-15.0 [facility] Comment on above: Performed By: #### L [id number] #### [facility]) [address] [place] [address] ERYTHROCYTE MEAN CORPUSCULAR HEMOGLOBIN CONCENTRATION (G/DL) BY AUTOMATED 33.1 g/dL Normal 32.0-35.0 [facility] Comment on above: Performed By: #### L [id number] #### [facility] ([facility]) [address] [place] [address] Hematocrit (Bld) [Volume fraction] 39.6 % Normal 39.0-55.0 [facility] Comment on above: Performed By: #### L [id number] #### [facility]) [address] [place] [address] Hemoglobin (Bld) [Mass/Vol] 13.1 g/dL Normal 13.0-17.0 [facility] Comment on above: Performed By: #### L [id number] #### [facility] [address] [place] [address] Immature granulocytes (Bld) [#/Vol] 0.10 10*3/uL Normal 0.00-0.20 [facility] Comment on above: Performed By: #### L [id number] #### [facility] ([facility]) [address] [place] [address] Immature granulocytes/100 WBC (Bld) 0.8 % Normal 0.0-1.0 [facility] Comment on above: Performed By: #### L [id number] #### [facility] ([facility]) [address] [place] [address] Lymphocytes (Bld) [#/Vol] 1.37 10*3/uL Normal 1.20-4.00 [facility] Comment on above: Performed By: #### L [id number] #### [facility] ([facility]) [address] [place] [address] Lymphocytes/100 WBC (Bld) 11.4 % Low 20.0-45.0 [facility] Comment on above: Performed By: #### L [id number] #### [facility] ([facility]) [address] [place] [address] MCH (RBC) [Entitic mass] 29.0 pg Normal 27.0-33.0 [facility] Comment on above: Performed By: #### L [id number] #### [facility] ([facility]) [address] [place] [address] MCV (RBC) [Entitic vol] 87.6 fL Normal 82.0-98.0 [facility] Comment on above: Performed By: #### L [id number] #### [facility] [address] [place] [address] Monocytes (Bld) [#/Vol] 0.86 10*3/uL Normal 0.10-1.00 [facility] Comment on above: Performed By: #### L [id number] #### [facility] ([facility]) [address] [address] Monocytes/100 WBC (Bld) 7.1 % Normal 5.0-12.0 [facility] Comment on above: Performed By: #### L [id number] #### [facility] ([facility]) [address] [address] Neutrophils (Bld) [#/Vol] 9.41 10*3/uL High 1.60-7.60 [facility] Comment on above: Performed By: #### L [id number] #### [facility] ([facility]) [address] [address] Neutrophils/100 WBC (Bld) 78.0 % High 40.0-72.0 [facility] Comment on above: Performed By: #### L [id number] #### [facility] ([facility]) [address] [address] NRBC (PER 100 WBCS) BY AUTOMATED COUNT 0.0 % Normal 0 [facility] Comment on above: Performed By: #### L [id number] #### [facility] ([facility]) [address] [address] PLATELETS (10*3/UL) IN BLOOD AUTOMATED COUNT 235 10*3/uL Normal 150-400 [facility] Comment on above: Performed By: #### L [id number] #### [facility] ([facility]) [address] [address] RBC (Bld) [#/Vol] 4.52 10*6/uL Normal 4.20-5.[address] [facility] Comment on above: Performed By: #### L [id number] #### [facility] ([facility]) [address] [address] WBC (Bld) [#/Vol] 12.07 10*3/uL High 4.00-10.60 [facility] Comment on above: Performed By: #### L [id number] #### [facility]) [address] [place] [address] CONSULTon 01-09-2024 CONSULT -- Attestation signed by [...] 78-year-old man who is transferred from the [facility] for complete heart block. This was discovered at the [facility] where he [facility] when the nurses noted [...] instead proceed with dual-chamber pacemaker placement tomorrow oil spot washer. We will check an echocardiogram prior to [...] significant for dementia has been transferred from [facility] due to high degree AV block. The patient is unable to answer questions appropriately due to his dementia so history was only taken by the signout received from [place]. The patient was noted to have multiple episodes of presyncope over the last few days and today his heart rate was noted to be in 30s upon their initial evaluation. EKG showed a complete A-V dissociation. When he arrived to [facility] MICU, his HR was in low 30s. Dopamine was increased to 10 and started on Isuprel which improved heart rate to mid to high 40s. Patient remained hemodynamically stable. Cardiology ROS: Negative except as mentioned. Past Medical History He has a past medical history of COPD (chronic obstructive pulmonary disease) ([facility]), Seizure ([facility]), and Sleep apnea. Surgical History He has [...] at bedtime. Do (more content not included)... [facility] 01-09-2024 -- Attestation signed by Jermaine Valenzuela [...] 78-year-old man who is transferred from the [facility] for complete heart block. This was discovered at the [facility] where he resides when the nurses noted [...] instead proceed with dual-chamber pacemaker placement tomorrow oil spot washer. We will check an echocardiogram prior to [...] significant for dementia has been transferred from [facility] due to high degree AV block. The patient is unable to answer questions appropriately due to his dementia so history was only taken by the signout received from [place]. The patient was noted to have multiple episodes of presyncope over the last few days and today his heart rate was noted to be in 30s upon their initial evaluation. EKG showed a complete A-V dissociation. When he arrived to [facility] MICU, his HR was in low 30s. Dopamine was increased to 10 and started on Isuprel which improved heart rate to mid to high 40s. Patient remained hemodynamically stable. Cardiology ROS: Negative except as mentioned. Past Medical History He has a past medical history of COPD (chronic obstructive pulmonary disease) (CMS/HCC), Seizure (CMS/[facility]), and Sleep apnea. Surgical History He has [...] (more content not included)... Normal [facility] HP -- Attestation signed by [...] Humphrey Age - 78 y.o. - 1945 N - [id number] [facility] # - [id number] Date of Admission - 01/09/2024 1:24 AM Chief Complaint Third-degree heart block History of Present Illness Clyde Humphrey is a 78-year-old gentleman with past medical history significant for dementia has been transferred from [facility] due to high degree AV block. The patient is unable to answer questions appropriately due to his dementia so history was only taken by the signout received from [place]. The patient was noted to have multiple episodes of presyncope over the last few days and today his heart rate was noted to be in 30s upon their initial evaluation. EKG showed a complete A-V dissociation after which thick reached out to [facility] cardiology for possible pacemaker placement. Due to significant bradycardia the patient is being transferred to [facility] ICU for close hemodynamic monitoring and management. [...] 37.1 mL/hr at 01/09/24318, 10 mcg/kg/min at 01/09/24318 heparin (porcine) injection 5,000 Units, 5,000 Units, subcutaneous, q8h [facility] insulin lispro (HumaLOG) injection 0-5 Units, 0-5 Units, subcutaneous, q6h [facility], Art Suh MD isoproterenol (Isuprel) 1,000 mcg in dextrose 5 % 500 mL (2 mcg/mL) infusion, 2 mcg/min, intravenous, Continuous, Simi Boggs MD, Last Rate: 60 mL/hr at 01/09/24211, 2 mcg/min at 01/09/24211 ondansetron ODT (Zofran-ODT) disintegrating tablet 4 mg, [...] (more content not included)... Normal [facility] MAGNESIUMon 01-09-2024 Magnesium [Mass/Vol] 1.9 mg/dL Normal 1.9-2.7 [facility] Comment on above: Performed By: #### L [id number] ####[facility] ([facility])[address] [place] [address] PHOSPHORUSon 01-09-2024 Magnesium [Mass/Vol] 3.2 mg/dL Normal 2.5-5.0 [facility] Comment on above: Performed By: #### L [id number] ####[facility] ([facility])[address] [place] [address] POCT GLUCOSE METER UNSOLICIT ED RESULTSon 01-09-2024 Glucose [Mass/Vol] 219 mg/dL High 70-105 [facility] Comment on above: Order Comment: Waive d Testing in the ED is performed under the ED CLIA certificate #[id number]. Result Comment: nlad oos Performed By: #### L [id number] #### [facility] ([facility]) [address] [place] [address] Glucose [Mass/Vol] 234 mg/dL High 70-105 [facility] Comment on above: Order Comment: Waive d Testing in the ED is performed under the ED CLIA certificate #[id number]. Result Comment: nlad oos Performed By: #### L [id number] #### [facility] ([facility]) [address] [place] [address] PROTIME-INRon 01-09-2024 INR IN PPP BY COAGULATION ASSAY 0.98 Normal 0.90-1.10 [facility] Comment on above: Result Comment: ACCC P RECOMMENDED INR FOR WARFARIN THERAPY CONDITION [...] CHEST 1995;108:231S-246S. Performed By: #### L [id number] ####[facility] ([facility])[address] [place] [address] PROTHROMBIN TIME (PT) IN PPP BY COAGULATION ASSAY 13.0 Seconds Normal 12.3-14.8 [facility] Comment on above: Performed By: #### L [id number] ####[facility] ([facility])[address] [place] [address] TROPONIN Ion 01-09-2024 Troponin I.cardiac [Mass/Vol] 0.06 ng/mL High 0.00-0.04 [facility] Comment on above: Performed By: #### L [id number] ####[facility] ([facility])[address] [place] [address] Insurance Correspondenceon 1 05-25-2022 Insurance Correspondence [id number]#1. 00TIFF Normal [facility] Coding Queryon 02-17-2023 Coding Query Normal [facility] Discharge Instructionson Discharge Instructions [id number]#1. [id number]:127 Normal [facility] Transfer Documentson 023 Transfer Documents [id number]#1. 00CD:127 Normal [facility] Discharge Note-Nursingon Discharge Note-Nursing Normal [facility] Interdisciplinary Note - Santosh e Manageron 01-23-2023 Interdisciplinary Note - Shanker Out Normal [facility] Comment on above: Result Comment: Elec tronically Signed By: Norma Garcia RN\.br\Date and Time Signed: 01/23/23 16:29 EDT Progress Note-Physicianon Progress Note-Physician Normal [facility] Comment on above: Result Comment: Elec tronically Signed By: New Johnson DO.br\Date and Time Signed: 01/23/23 09:50 EDT Auto Diffon 01-22-2023 Basophils/100 WBC (Bld) 0.7 % Normal 0.0-2.0 [facility] Comment on above: Order Comment: Order Added by Discern Expert. Performed By: #### 2 [id number], [id number], 3343183, 2760533 ####[address] [address] Basophils/Leukocytes Auto (Bld) [Pure # fraction] 0.1 E9/L Normal 0.0-0.2 [facility] Comment on above: Order Comment: Order Added by Discern Expert. Performed By: #### 2 [id number], [id number], 0745446, 1010175 ####[address] [address] Eosinophils/100 WBC (Bld) 9.3 % High 0.0-8.0 [facility] Comment on above: Order Comment: Order Added by Discern Expert. Performed By: #### 2 238470, 16536070, 1235037, 8051505 ####[address] [address] Eosinophils/Leukocytes Auto (Bld) [Pure # fraction] 0.8 E9/L High 0.0-0.5 [facility] Comment on above: Order Comment: Order Added by Discern Expert. Performed By: #### 2 986868, 79923126, 4799865, 3394198 ####[address] [address] Lymphocytes/100 WBC (Bld) 17.2 % Normal 14.0-50.0 [facility] Comment on above: Order Comment: Order Added by Discern Expert. Performed By: #### 2 052204, 77393488, 7249785, 2488591 ####[address] [address] Lymphocytes/Leukocytes Auto (Bld) [Pure # fraction] 1.4 E9/L Normal 1.0-4.0 [facility] Comment on above: Order Comment: Order Added by Discern Expert. Performed By: #### 2 042953, [id number], 2874479, 4758971 ####[facility] [address] [place] [address] Monocytes/100 WBC (Bld) 10.0 % Normal 4.0-14.0 [facility] Comment on above: Order Comment: Order Added by Discern Expert. Performed By: #### 2 175142, 79062420, 3435110, 4060453 ####[address] [place] [address] Monocytes/Leukocytes Auto (Bld) [Pure # fraction] 0.8 E9/L Normal 0.2-1.0 [facility] Comment on above: Order Comment: Order Added by Discern Expert. Performed By: #### 2 462542, 10084414, 2688080, 6931556 ####[address] [address] Neutrophils/100 WBC (Bld) 62.8 % Normal 36.0-75.0 [facility] Comment on above: Order Comment: Order Added by Discern Expert. Performed By: #### 2 504472, 18075111, 2260339, 2358489 ####[address] [address] Neutrophils/Leukocytes Auto (Bld) [Pure # fraction] 5.2 E9/L Normal 2.0-7.5 [facility] Comment on above: Order Comment: Order Added by Discern Expert. Performed By: #### 2 842248, 63709349, 9960712, 1297099 ####[address] [place] [address] CBC w/ Auto Diffon 3 Erythrocyte distribution width (RBC) [Ratio] 15.2 % High 10.9-14.2 [facility] Comment on above: Performed By: #### 2 284491, 10914403, 6758890, 3422764 ####[address] [place] [address] Hematocrit (Bld) [Volume fraction] 43.1 % Normal 37.7-49.0 [facility] Comment on above: Performed By: #### 2 182905, 59009371, 4401277, 5418593 ####[address] [address] Hemoglobin (Bld) [Mass/Vol] 14.6 g/dL Normal 13.5-17.5 [facility] Comment on above: Performed By: #### 2 227208, 05213570, 1818343, 9283542 ####[address] [address] MCH (RBC) [Entitic mass] 28.1 pg Normal 27.0-34.0 [facility] Comment on above: Performed By: #### 2 653331, 10638896, 6389732, 3767249 ####[address] [address] MCHC (RBC) [Mass/Vol] 33.8 g/dL Normal 31.4-36.0 [facility] Comment on above: Performed By: #### 2 333843, 14444857, 4780853, 5633509 ####[address] [address] MCV (RBC) [Entitic vol] 83.2 fL Normal 80.0-100.0 [facility] Comment on above: Performed By: #### 2 023376, 89276418, 7939314, 6327036 ####[address] [address] Platelet mean volume (Bld) [Entitic vol] 8.6 fL Normal 6.4-10.8 [facility] Comment on above: Performed By: #### 2 133822, 06050968, 4271991, 3139626 ####[address] [address] Platelets (Bld) [#/Vol] 221.0 E9/L Normal 150.0-500.0 [facility] Comment on above: Performed By: #### 2 676113, 19155559, 6731331, 6491221 ####[facility] [address] [place] [address] RBC (Bld) [#/Vol] 5.2 E12/L Normal 4.3-5.9 [facility] Comment on above: Performed By: #### 2 141551, 98702011, 5847115, 8663318 ####[facility] [address] [place] [address] WBC corrected for nucl RBC Auto (Bld) [#/Vol] 8.3 E9/L Normal 4.0-11.0 [facility] Comment on above: Performed By: #### 2 740423, 26033701, 1682731, 3009019 ####[facility] [address] [place] [address] CHEMISTRYOrdered By: Lab ROP User on 01-22-2023 Glucose [Mass/Vol] 121 mg/dL High 55 - 99 mg/dL [facility] Subsection Comment on above: Result Comment: Gareth guerrero RN/ POC Device SN [id number] Invalid Interpretation Code [facility] Subsection POC User ID [id number] Invalid Interpretation Code [facility] Subsection POC Username LATONIA MALHOTRA Invalid Interpretation Code [facility] Subsection CHEMISTRYOrdered By: SYSTEM SYSTEM on [...] 21 [iU]/d Normal 5 - 43 Int._Unit/L [facility] Bilirubin [Mass/Vol] 0.8 mg/dL Normal 0.0 [...] mL/min/1.73 m2 Low >=59mL/min/ 1.73 m2 [facility] Chem S Globulin (S) [Mass/Vol] 3.6 g/dL Normal 1.4 - 4.0 gm/dL [facility] Glucose [Mass/Vol] 124 mg/dL Normal 55 - 199 mg/dL [facility] Potassium [Moles/Vol] 4.0 mmol/L Normal 3.5 - 5.3 mmol/L [facility] Protein [Mass/Vol] 7.3 g/dL Normal 6.0 - 7.8 gm/dL [facility]isol Sodium [Moles/Vol] 138 mmol/L Normal 135 - 145 mmol/L [facility] Remisol Urea nitrogen [Mass/Vol] 42 mg/dL High 5 - 21 mg/dL [facility] Urea nitrogen/Creatinine [Mass ratio] 32 mg/mg High 10 - 20 [facility] Remisol CMPon 01-22-2023 Albumin [Mass/Vol] 3.7 g/dL Normal 3.3-5.0 [facility] Comment on above: Performed By: #### 2 957174, 94419880, 0359759, 1617078 ####[facility] [address] [place] [address] Albumin/Globulin (S) [Mass conc ratio] 1.0 Low 1.1-2.2 [facility] Comment on above: Performed By: #### 2 369284, 00570859, 9757847, 2350197 ####[facility] [address] [place] [address] ALP [Catalytic activity/Vol] 47 Int._Unit/L Normal 21-98 [facility] Comment on above: Performed By: #### 2 576575, 01203845, 3294830, 9599678 ####[facility] [address] [place] [address] ALT No additional P-5'-P [Catalytic activity/Vol] 21 Int._Unit/L Normal 6-46 [facility] Comment on above: Performed By: #### 2 492573, 63323757, 8271607, 4312822 ####[facility] [address] [place] [address] Anion gap [Moles/Vol] 15 mmol/L Normal 6-16 [facility] Comment on above: Performed By: #### 2 607781, 74065093, 0535879, 9639388 ####[facility] [address] [place] [address] AST [Catalytic activity/Vol] 21 Int._Unit/L Normal 5-43 [facility] Comment on above: Performed By: #### 2 118241, 60300911, 1620088, 0240594 ####[facility] [address] [place] [address] Bilirubin [Mass/Vol] 0.8 mg/dL Normal 0.0-1.1 [facility] Comment on above: Performed By: #### 2 932337, 60235926, 3796315, 9140817 ####[facility] [address] [place] [address] Calcium [Mass/Vol] 9.6 mg/dL Normal 8.9-11.1 [facility] Comment on above: Performed By: #### 2 791691, 09616267, 7858745, 2861760 ####[facility] [address] [place] [address] Chloride [Moles/Vol] 97 mmol/L Low 101-111 [facility] Comment on above: Performed By: #### 2 878338, 56300150, 0383668, 0351310 ####[facility] [address] [place] [address] CO2 [Moles/Vol] 30 mmol/L Normal 21-31 [facility] Comment on above: Performed By: #### 2 343663, 10887349, 9181659, 8994638 ####[facility] [address] [place] [address] Creatinine [Mass/Vol] 1.3 mg/dL Normal 0.5-1.3 [facility] Comment on above: Performed By: #### 2 967751, 64362770, 7192827, 5326265 ####[facility] [address] [place] [address] Globulin (S) [Mass/Vol] 3.6 g/dL Normal 1.4-4.0 [facility] Comment on above: Performed By: #### 2 669422, 53974235, 4624261, 1325530 ####[facility] [address] [place] [address] Glucose [Mass/Vol] 124 mg/dL Normal 55-199 [facility] Comment on above: Result Comment: If t his glucose result represents a fasting glucose, interpretation should refer to the following reference range: 55-99 mg/dL Performed By: #### 2 993590, 22262678, 7694852, 0550807 ####[facility] [address] [place] [address] Potassium [Moles/Vol] 4.0 mmol/L Normal 3.5-5.3 [facility] Comment on above: Performed By: #### 2 664703, 70973329, 4286032, 3465276 ####[facility] [address] [place] [address] Protein [Mass/Vol] 7.3 g/dL Normal 6.0-7.8 [facility] Comment on above: Performed By: #### 2 432710, 83739830, 7968676, 6575996 ####[facility] [address] [place] [address] Sodium [Moles/Vol] 138 mmol/L Normal 135-145 [facility] Comment on above: Performed By: #### 2 664080, 13830614, 1246497, 7065701 ####[facility] [address] [place] [address] Urea nitrogen [Mass/Vol] 42 mg/dL High 5-21 [facility] Comment on above: Performed By: #### 2 415445, 91814908, 9274336, 5358080 ####[facility] [address] [place] [address] Urea nitrogen/Creatinine [Mass ratio] 32 No Units High 10-20 [facility] Comment on above: Performed By: #### 2 552228, 15723007, 9361677, 0342618 ####[facility] [address] [place] [address] Capillary Glucose POCon Glucose [Mass/Vol] 121 mg/dL High 55-99 [facility] Comment on above: Result Comment: Gareth guerrero RN/ Performed By: #### 2 74281505 ####[facility] [address] [place] [address] Coding Queryon 01-22-2023 Coding Query Normal [facility] HEMATOLOGYOrdered By: SYSTEM SYSTEM on 01-22-2023 [...] 11.0 E9/L [facility] HemeAutoSS Insurance Correspondence Off ice 01-22-2023 Insurance Correspondence Office [id number]#1.0 0CD:127 Normal [facility] Interdisciplinary Note - Santosh e Manageron 01-22-2023 Interdisciplinary Note - Shanker Out Normal [facility] Comment on above: Result Comment: Elec tronically Signed By: aNtalie Grant\.br\Date and Time Signed: 01/22/23 11:13 EDT Interdisciplinary Note - Murphy n 01-22-2023 Interdisciplinary Note - OT Normal [facility] Interdisciplinary Note - PTo n 01-22-2023 Interdisciplinary Note - PT Normal [facility] Message from Medicareon Message from Medicare [id number]#1.0 0CD:127 Normal [facility] Progress Note-Physicianon Progress Note-Physician Normal [facility] Comment on above: Result Comment: Elec tronically Signed By: New Johnson DO\Date and Time Signed: 01/22/23 14:15 EDT eGFRon 01-22-2023 GFR/1.73 sq M.predicted among non-blacks MDRD (S/P/Bld) [Vol rate/Area] 56 mL/min/1.73 m2 Low >=59 [facility] Comment on above: Order Comment: Order added by Discern Expert. 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 Kidney failure is indicated at less than 15 mL/min/1.73m2. Performed By: #### 2 907244, 78389118, 5053300, 0132030 ####[facility] [address] [place] [address] Auto Diffon 01-21-2023 Basophils/100 WBC (Bld) 0.9 % Normal 0.0-2.0 [facility] Comment on above: Order Comment: Order Added by Discern Expert. Performed By: #### 2 374961, 2907388, 33469487, 56601548, 4087242, 1493636 ####[facility] [address] [place] [address] Basophils/Leukocytes Auto (Bld) [Pure # fraction] 0.1 E9/L Normal 0.0-0.2 [facility] Comment on above: Order Comment: Order Added by Discern Expert. Performed By: #### 2 287085, 0546234, 29656656, 66368455, 0934517, 3092043 ####[address] [place] [address] Eosinophils/100 WBC (Bld) 3.3 % Normal 0.0-8.0 [facility] Comment on above: Order Comment: Order Added by Discern Expert. Performed By: #### 2 043820, 0415260, 80089492, 73528867, 1158151, 8839563 ####[address] [place] [address] Eosinophils/Leukocytes Auto (Bld) [Pure # fraction] 0.4 E9/L Normal 0.0-0.5 [facility] Comment on above: Order Comment: Order Added by Discern Expert. Performed By: #### 2 862194, 6829352, 18071401, 75971228, 4520223, 4916218 ####[address] [address] Lymphocytes/100 WBC (Bld) 10.4 % Low 14.0-50.0 [facility] Comment on above: Order Comment: Order Added by Discern Expert. Performed By: #### 2 702987, 3102571, 90878972, 89543051, 5628331, 9200441 ####[facility] [address] [place] [address] Lymphocytes/Leukocytes Auto (Bld) [Pure # fraction] 1.2 E9/L Normal 1.0-4.0 [facility] Comment on above: Order Comment: Order Added by Discern Expert. Performed By: #### 2 155432, 0466047, 65309249, 82680256, 4054675, 6264187 ####[address] [place] [address] Monocytes/100 WBC (Bld) 7.4 % Normal 4.0-14.0 [facility] Comment on above: Order Comment: Order Added by Discern Expert. Performed By: #### 2 176964, 6635999, 40787664, 33500281, 5512121, 2770893 ####[facility] [address] [place] [address] Monocytes/Leukocytes Auto (Bld) [Pure # fraction] 0.9 E9/L Normal 0.2-1.0 [facility] Comment on above: Order Comment: Order Added by Discern Expert. Performed By: #### 2 982853, 9502051, 63331287, 93133911, 1379822, 2089673 ####[facility] [address] [place] [address] Neutrophils/100 WBC (Bld) 78.0 % High 36.0-75.0 [facility] Comment on above: Order Comment: Order Added by Discern Expert. Performed By: #### 2 803619, 0603756, 70914218, 38903240, 7996618, 5986778 ####[facility] [address] [place] [address] Neutrophils/Leukocytes Auto (Bld) [Pure # fraction] 9.1 E9/L High 2.0-7.5 [facility] Comment on above: Order Comment: Order Added by Discern Expert. Performed By: #### 2 548950, 9443307, 49276775, 15193982, 7728054, 5697856 ####[facility] [address] [place] [address] BMPon 01-21-2023 Creatinine [Mass/Vol] 1.2 mg/dL Normal 0.5-1.3 [facility] Comment on above: Performed By: #### 2 143096, 6571672, 12334380, 49853264, 8686191, 6396224 ####[facility] [address] [place] [address] Urea nitrogen [Mass/Vol] 38 mg/dL High 5-21 [facility] Comment on above: Performed By: #### 2 921291, 3163117, 02008401, 15239203, 5673668, 9198296 ####[facility] [address] [place] [address] Urea nitrogen/Creatinine [Mass ratio] 32 No Units High 10-20 [facility] Comment on above: Performed By: #### 2 783345, 2518084, 24896232, 09637140, 5788688, 9907874 ####[facility] [address] [place] [address] Anion gap [Moles/Vol] 14 mmol/L Normal 6-16 [facility] Comment on above: Performed By: #### 2 267948, 7760581, 02358152, 92218569, 2955854, 1499422 ####[facility] [address] [place] [address] Calcium [Mass/Vol] 9.9 mg/dL Normal 8.9-11.1 [facility] Comment on above: Performed By: #### 2 414966, 0001071, 54944237, 70948151, 6464098, 4611381 ####[facility] [address] [place] [address] Chloride [Moles/Vol] 95 mmol/L Low 101-111 [facility] Comment on above: Performed By: #### 2 780831, 6596469, 64435783, 95497731, 3922924, 3514825 ####[facility] [address] [place] [address] CO2 [Moles/Vol] 31 mmol/L Normal 21-31 [facility] Comment on above: Performed By: #### 2 473916, 7946139, 16225447, 38922903, 0878019, 6021150 ####[facility] [address] [place] [address] Glucose [Mass/Vol] 124 mg/dL Normal 55-199 [facility] Comment on above: Result Comment: If t his glucose result represents a fasting glucose, interpretation should refer to the following reference range: 55-99 mg/dL Performed By: #### 2 717064, 6202586, 25171714, 22627727, 4871598, 9333369 ####[facility] [address] [place] [address] Potassium [Moles/Vol] 4.3 mmol/L Normal 3.5-5.3 [facility] Comment on above: Performed By: #### 2 660275, 6992922, 77262576, 80387560, 4201360, 2991362 ####[facility] [address] [place] [address] Sodium [Moles/Vol] 136 mmol/L Normal 135-145 [facility] Comment on above: Performed By: #### 2 444028, 0095312, 82105514, 25401262, 7678747, 3278248 ####[address] [address] CBC w/ Auto Diffon 3 Erythrocyte distribution width (RBC) [Ratio] 15.4 % High 10.9-14.2 [facility] Comment on above: Performed By: #### 2 536961, 9748497, 19676362, 87147806, 6558833, 2401792 ####[address] [place] [address] Hematocrit (Bld) [Volume fraction] 42.5 % Normal 37.7-49.0 [facility] Comment on above: Performed By: #### 2 130288, 9384720, 00907598, 48718201, 2348512, 7516305 ####[facility] [address] [place] [address] Hemoglobin (Bld) [Mass/Vol] 13.9 g/dL Normal 13.5-17.5 [facility] Comment on above: Performed By: #### 2 374947, 4741828, 75537550, 99679245, 2446437, 3322371 ####[facility] [address] [place] [address] MCH (RBC) [Entitic mass] 27.3 pg Normal 27.0-34.0 [facility] Comment on above: Performed By: #### 2 633253, 7355239, 42778930, 43343887, 5345575, 2846530 ####[address] [address] MCHC (RBC) [Mass/Vol] 32.7 g/dL Normal 31.4-36.0 [facility] Comment on above: Performed By: #### 2 360821, 5696920, 33482290, 08103722, 9095137, 5137770 ####[address] [address] MCV (RBC) [Entitic vol] 83.4 fL Normal 80.0-100.0 [facility] Comment on above: Performed By: #### 2 894276, 6922557, 54634653, 85394565, 8637971, 9589076 ####[facility] [address] [place] [address] Platelet mean volume (Bld) [Entitic vol] 8.6 fL Normal 6.4-10.8 [facility] Comment on above: Performed By: #### 2 636486, 6120391, 74508057, 87488092, 5924894, 6130280 ####[address] [address] Platelets (Bld) [#/Vol] 252.0 E9/L Normal 150.0-500.0 [facility] Comment on above: Performed By: #### 2 251723, 8742681, 47365291, 71418995, 7469485, 1571640 ####[address] [address] RBC (Bld) [#/Vol] 5.1 E12/L Normal 4.3-5.9 [facility] Comment on above: Performed By: #### 2 532042, 7453406, 59877690, 83340788, 5979180, 4492149 ####[facility] [address] [place] [address] WBC corrected for nucl RBC Auto (Bld) [#/Vol] 11.6 E9/L High 4.0-11.0 [facility] Comment on above: Performed By: #### 2 043664, 4218201, 95775013, 56956406, 4993004, 8214562 ####[facility] [address] [place] [address] CHEMISTRYOrdered By: SYSTEM SYSTEM on 01-21-2023 Troponin [...] 31 mmol/L Normal 21 - 31 mmol/L [facility] Creatinine [Mass/Vol] 1.2 mg/dL Normal 0.5 - 1.3 mg/dL [facility] GFR/1.73 sq M.predicted among non-blacks MDRD (S/P/Bld) [Vol rate/Area] 62 mL/min/1.73 m2 Normal >=59mL/min/ 1.73 m2 [facility] Chem S Globulin (S) [Mass/Vol] 3.8 g/dL [...] Treatmenton 12-24 Consent for Treatment [id number]#1.0 0CD:127 Normal [facility] ED Clinical Summaryon 2022 ED Clinical Summary Normal [facility] ED Note-Physicianon 01-22-20 23 ED Note-Physician Normal [facility] Comment on above: Result Comment: Elec tronically Signed By: Gustavo Yusuf DO.br\Date and Time Signed: 01/21/23 19:26 EDT ED Patient Education Noteon 01-21-2023 ED Patient Education Note Normal [facility] ED Patient Summaryon 023 ED Patient Summary Normal [facility] HEMATOLOGYOrdered By: SYSTEM SYSTEM on 01-21-2023 [...] 8.6 fL Normal 6.4 - 10.8 fL [facility] HemeAutoSS Platelets (Bld) [#/Vol] 252.0 E9/L Normal 150. 0 - 500.0 E9/L [facility] HemeAuto[facility] RBC (Bld) [#/Vol] 5.1 E12/L Normal 4.3 - 5.9 E12/L [facility] HemeAutoSS WBC corrected for nucl RBC Auto (Bld) [#/Vol] 11.6 E9/L High 4.0 - 11.0 E9/L [facility] HemeAuto[facility] Hep Func Panelon 01-21-2023 Bilirubin.direct [Mass/Vol] 0.1 mg/dL Normal 0.1-0.4 [facility] Comment on above: Performed By: #### 2 894265, 7209956, 34760352, 64504316, 6289360, 3791250 ####[facility] [address] [place] [address] Bilirubin.indirect [Mass or moles/Vol] 0.8 mg/dL Normal 0.1-0.9 [facility] Comment on above: Performed By: #### 2 623893, 2076929, 55870396, 95590469, 3845215, 9668709 ####[facility] [address] [place] [address] Albumin [Mass/Vol] 3.9 g/dL Normal 3.3-5.0 [facility] Comment on above: Performed By: #### 2 264094, 1149257, 11522156, 24815921, 4757405, 7925907 ####[facility] [address] [place] [address] Albumin/Globulin (S) [Mass conc ratio] 1.0 Low 1.1-2.2 [facility] Comment on above: Performed By: #### 2 110841, 0339015, 91715879, 45768489, 8812320, 6892260 ####[facility] [address] [place] [address] ALP [Catalytic activity/Vol] 50 Int._Unit/L Normal 21-98 [facility] Comment on above: Performed By: #### 2 056228, 5224387, 98266803, 39572133, 3671638, 4982949 ####[facility] [address] [place] [address] ALT No additional P-5'-P [Catalytic activity/Vol] 23 Int._Unit/L Normal 6-46 [facility] Comment on above: Performed By: #### 2 694990, 7092724, 85453314, 27901050, 5015565, 0148840 ####[facility] [address] [place] [address] AST [Catalytic activity/Vol] 22 Int._Unit/L Normal 5-43 [facility] Comment on above: Performed By: #### 2 624061, 3862976, 25081976, 72213967, 0489399, 3721941 ####[facility] [address] [place] [address] Bilirubin [Mass/Vol] 0.9 mg/dL Normal 0.0-1.1 [facility] Comment on above: Performed By: #### 2 639958, 1581520, 16317797, 87283483, 4906526, 6208091 ####[facility] [address] [place] [address] Globulin (S) [Mass/Vol] 3.8 g/dL Normal 1.4-4.0 [facility] Comment on above: Performed By: #### 2 131838, 8936381, 88136026, 74419815, 8366676, 3674097 ####[facility] [address] [place] [address] Protein [Mass/Vol] 7.7 g/dL Normal 6.0-7.8 [facility] Comment on above: Performed By: #### 2 028866, 6911779, 29563569, 66400981, 5608795, 5816147 ####[facility] [address] [place] [address] Residential Recordson 01-21 Residential Records [id number]#1. 00CD:127 Normal [facility] Troponin 0 Hr.on 01-21-2023 Troponin I.cardiac [Mass/Vol] 25.50 pg/mL Normal 15.90-38.40 [facility] Comment on above: Result Comment: The 95% CI (Confidence Interval) PPV (Positive Predictive Value) for myocardial infarction in females is 38 pg/mL, in males 51 pg/mL. The results should be used in conjunction with clinical conditions of myocardial infarction.([email or web address] High Sensitivity Troponin I Instructions For Use, [employer], December 2017) Performed By: #### 2 867051, 4142964, 12424991, 29343296, 2453237, 7781420 ####[address] [address] Troponin 3 Hr.on 01-21-2023 Troponin I.cardiac [Mass/Vol] 23.90 pg/mL Normal 15.90-38.40 [facility] Comment on above: Result Comment: The 95% CI (Confidence Interval) PPV (Positive Predictive Value) for myocardial infarction in females is 38 pg/mL, in males 51 pg/mL. The results should be used in conjunction with clinical conditions of myocardial infarction.(magnify360 High Sensitivity Troponin I Instructions For Use, [employer], December 2017) Performed By: #### 1 0461090 ####[facility] [address] [place] [address] UA With Cult Reflexon 2022 Bilirubin Ql (U) Negative Normal Negative [facility] Comment on above: Performed By: #### 1 1339545 ####[facility] [address] [place] [address] Clarity (U) CLEAR Normal Clear [facility] Comment on above: Performed By: #### 1 3511001 ####[facility] [address] [place] [address] Color (U) STRAW Abnormal Yellow [facility] Comment on above: Performed By: #### 1 6475386 ####[address] [address] Epithelial cells.squamous LM.HPF (Urine sed) [#/Area] 0-2 Normal 0-2 [facility] Comment on above: Performed By: #### 1 3318896 ####[address] [address] Glucose Test strip (U) [Mass/Vol] Negative Normal Negative [facility] Comment on above: Performed By: #### 1 9215828 ####[address] [address] Hemoglobin Ql (U) Negative Normal Negative [facility] Comment on above: Performed By: #### 1 6422378 ####[address] [address] Ketones (U) [Mass/Vol] Negative Normal Negative [facility] Comment on above: Performed By: #### 1 1640270 ####[address] [address] Florence-Graham.plasma/Florence-Graham.R BC (Bld) [Mass ratio] 0-3 Normal 0-3 [facility] Comment on above: Performed By: #### 1 4850866 ####[address] [address] Nitrite Ql (U) Negative Normal Negative [facility] Comment on above: Performed By: #### 1 2333193 ####[address] [address] pH (U) 6.0 [pH] Invalid Interpretation Code 5.0-9.0 [facility] Comment on above: Performed By: #### 1 6688284 ####[address] [address] Protein (U) [Mass/Vol] Negative Normal Negative [facility] Comment on above: Performed By: #### 1 8790589 ####[address] [address] Specific gravity (U) [Rel density] 1.010 Invalid Interpretation Code 1.005-1.030 [facility] Comment on above: Performed By: #### 1 5475706 ####[facility] [address] [place] [address] Type of Urine collection method Clean Catch Normal [facility] Comment on above: Performed By: #### 1 0665097 ####[facility] [address] [place] [address] Urobilinogen Qn (U) 0.2 {Lei'U}/dL Normal 0.0-1.0 [facility] Comment on above: Performed By: #### 1 5045997 ####[facility] [address] [place] [address] WBC Auto Ql (U) Negative Normal Negative [facility] Comment on above: Performed By: #### 1 9714130 ####[facility] [address] [place] [address] WBC LM.HPF (Urine sed) [#/Area] 0-5 Normal 0-5 [facility] Comment on above: Performed By: #### 1 4250130 ####[facility] [address] [place] [address] URINALYSISOrdered By: Karen Vergara on 01-21-2023 Bilirubin [...] PM) Normal Negative [facility] UA Auto SS Florence-Graham.plasma/Florence-Graham.R BC (Bld) [Mass ratio] 0-3 /HPF Normal [...] [facility] UA Auto SS Urobilinogen Qn (U) 0.9203262 {Lei'U}/dL Normal 0.0 - 1.0 EU/dL [facility] UA Auto SS WBC Auto Ql (U) Negative (01/21/23 4:41 PM) Normal Negative [facility] UA Auto SS WBC LM.HPF (Urine sed) [#/Area] 0-5 /HPF Normal 0-5/HPF [facility] UA Auto SS XR Chest Single Viewon 01-21 XR Chest Single View Normal [facility] eGFRon 01-21-2023 GFR/1.73 sq M.predicted among non-blacks MDRD (S/P/Bld) [Vol rate/Area] 62 mL/min/1.73 m2 Normal >=59 [facility] Comment on above: Order Comment: Order added by Discern Expert. 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 Kidney failure is indicated at less than 15 mL/min/1.73m2. Performed By: #### 2 059572, 3211427, 78744518, 33815613, 3234590, 3364540 ####[facility] [address] [place] [address] Discharge Instructionson Discharge Instructions [id number]#1.0 0CD:127 Normal [facility] Capillary Glucose POCon 12-23 Glucose [Mass/Vol] 117 mg/dL High 55-99 [facility] Comment on above: Result Comment: Yazmin bri Meter Performed By: #### 2 45416939 ####[facility] [address] [place] [address] Family Medicine Office/Clini c Noteon 01-15-2023 Family Medicine Office/Clinic Note Normal [facility] Comment on above: Result Comment: Elec tronically Signed By: SHAISTA POTTS, Dennise.br\Date and Time Signed: 01/15/23 16:46 EDT Capillary Glucose POCon 12-23 Glucose [Mass/Vol] 121 mg/dL High 55-99 [facility] Comment on above: Result Comment: Yazmin bri Meter Performed By: #### 2 81315875 ####[facility] [address] [facility] [place] [address] Capillary Glucose POCon 12-23 Glucose [Mass/Vol] 127 mg/dL High 55-99 [facility] Comment on above: Result Comment: Yazmin bri Meter Performed By: #### 2 89849653 ####[facility] [address] [place] [address] Capillary Glucose POCon 12-22 Glucose [Mass/Vol] 104 mg/dL High 55-99 [facility] Comment on above: Result Comment: Yazmin bri Meter Performed By: #### 2 64211344 ####[facility] [address] [place] [address] Capillary Glucose POCon 12-22 Glucose [Mass/Vol] 121 mg/dL High 55-99 [facility] Comment on above: Result Comment: Yazmin bri Meter Performed By: #### 2 10275293 ####[facility] [address] [place] [address] Capillary Glucose POCon 12-22 Glucose [Mass/Vol] 110 mg/dL High 55-99 [facility] Comment on above: Result Comment: Yazmin bri Meter Performed By: #### 2 73971711 ####[facility] [address] [place] [address] Capillary Glucose POCon 12-22 Glucose [Mass/Vol] 119 mg/dL High 55-99 [facility] Comment on above: Result Comment: Yazmin bri Meter Performed By: #### 2 60199118 ####[facility] [address] [place] [address] Capillary Glucose POCon 12-22 Glucose [Mass/Vol] 141 mg/dL High 55-99 [facility] Comment on above: Result Comment: Yazmin bri Meter Performed By: #### 2 07098812 ####[facility] [address] [place] [address] Capillary Glucose POCon 12-22 Glucose [Mass/Vol] 104 mg/dL [facility] 55-99 [facility] Comment on above: Result Comment: Yazmin bri Meter Performed By: #### 2 25297173 ####[facility] [address] [place] [address] BMPon 12-30-2022 Calcium [Mass/Vol] 9.1 mg/dL Normal 8.9-11.1 [facility] Comment on above: Performed By: #### 7 31070754, 3833717, 12553831 ####[facility] [address] [place] [address] Anion gap [Moles/Vol] 18 mmol/L High 6-16 [facility] Comment on above: Performed By: #### 7 35627218, 8544193, 25340954 ####[facility] [address] [place] [address] Chloride [Moles/Vol] 91 mmol/L Low 101-111 [facility] Comment on above: Performed By: #### 7 42152728, 7420851, 10199482 ####[facility] [address] [place] [address] CO2 [Moles/Vol] 30 mmol/L Normal 21-31 [facility] Comment on above: Performed By: #### 7 10571906, 9608104, 78109790 ####[facility] [address] [place] [address] Creatinine [Mass/Vol] 1.3 mg/dL Normal 0.5-1.3 [facility] Comment on above: Performed By: #### 7 04640010, 2988173, 01547366 ####[facility] [address] [place] [address] Glucose [Mass/Vol] 171 mg/dL Normal 55-199 [facility] Comment on above: Result Comment: If t his glucose result represents a fasting glucose, interpretation should refer to the following reference range: 55-99 mg/dL Performed By: #### 7 32827810, 7305892, 10331258 ####[facility] [address] [place] [address] Potassium [Moles/Vol] 4.2 mmol/L Normal 3.5-5.3 [facility] Comment on above: Performed By: #### 7 32075770, 1931572, 74215246 ####[facility] [address] [place] [address] Sodium [Moles/Vol] 135 mmol/L Normal 135-145 [facility] Comment on above: Performed By: #### 7 20752943, 2094566, 09378212 ####[facility] [address] [place] [address] Urea nitrogen [Mass/Vol] 36 mg/dL High 5-21 [facility] Comment on above: Performed By: #### 7 93897572, 5138332, 92148895 ####[facility] [address] [place] [address] Urea nitrogen/Creatinine [Mass ratio] 28 No Units High 10-20 [facility] Comment on above: Performed By: #### 7 92947118, 0102563, 24528066 ####[facility] [address] [place] [address] MfdB3ily 08-09-2023 HbA1c (Bld) [Mass fraction] 6.9 % High <=5.9 [facility] Comment on above: Performed By: #### 7 [id number], 7486257, 24463568 ####[facility] [address] [place] [address] eGFRon 12-30-2022 GFR/1.73 sq M.predicted among non-blacks MDRD (S/P/Bld) [Vol rate/Area] 56 mL/min/1.73 m2 Low >=59 [facility] Comment on above: Order Comment: Order added by Discern Expert. 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 Kidney failure is indicated at less than 15 mL/min/1.73m2. Performed By: #### 7 [id number], 2901643, [id number] ####[facility] [address] [place] [address] Capillary Glucose POCon 08-0 Glucose [Mass/Vol] 141 mg/dL High 55-99 [facility] Comment on above: Result Comment: Yazmin bri Meter Performed By: #### 2 [id number] ####[facility] [address] [place] [address] Capillary Glucose POCon 0 Glucose [Mass/Vol] 101 mg/dL High 55-99 [facility] Comment on above: Result Comment: Yazmin bri Meter Performed By: #### 2 [id number] ####[facility] [address] [place] [address] C Blood Charcoalon 3 Blood Culture Charcoal Normal [facility] Comment on above: Performed By: #### 1 [id number] ####[facility] [address] [place] [address] Capillary Glucose POCon 08-0 Glucose [Mass/Vol] 135 mg/dL High 55-99 [facility] Comment on above: Result Comment: Yazmin bri Meter Performed By: #### 2 [id number] ####[facility] [address] [place] [address] Capillary Glucose POCon 0 Glucose [Mass/Vol] 110 mg/dL High 55-99 [facility] Comment on above: Result Comment: Yazmin bri Meter Performed By: #### 2 [id number] ####[facility] [address] [place] [address] Consultation Noteon 12-24-19 Consultation Note Normal [facility] Comment on above: Result Comment: Elec tronically Signed By: Marcus POTTS, [place]\.br\Date and Time Signed: 12/23/22 07:33 EDT Family Medicine Office/Clini c Noteon 12-23-2022 Family Medicine Office/Clinic Note Normal [facility] Comment on above: Result Comment: Elec tronically Signed By: SHAISTA POTTS, Donta\.br\Date and Time Signed: 12/22/22 22:31 EDT C Blood Charcoalon Blood Culture Charcoal Normal [facility] Comment on above: Performed By: #### 1 [id number] ####[facility] [address] [place] [address] U Legi Agon 12-22-2022 L. pneumophila 1 Ag IA Ql (U) Negative Invalid Interpretation Code Negative [facility] Comment on above: Result Comment: Pres umptive negative for L. pneumophila serogroup 1 antigen in urine,suggesting no recent or current infection. Legionnaires' diseasecannot be ruled out since other serogroups and species may also causedisease.Performed at: [address] [id number] MD Tyler Gurrola Performed By: #### 2 903808 ####[facility] [address] [place] [address] C Urineon 12-21-2022 Bacteria identified Cx Nom (U) Normal [facility] Comment on above: Performed By: #### 1 1233836, 8844941 ####[facility] [address] [place] [address] Capillary Glucose POCon 11-23 Glucose [Mass/Vol] 134 mg/dL High 55-99 [facility] Comment on above: Result Comment: Yazmin bri Meter Performed By: #### 2 [id number] ####[address] [address] Auto DiffOrdered By: SYSTEM SYSTEM on 12-20-2022 Basophils/100 WBC (Bld) 0.5 % Normal 0.0-2.0 [facility] HemeAutoSS Comment on above: Order Comment: Order Added by Discern Expert. Performed By: #### 2 314707, 8786635, 04035287, 4638082 ####[address] [address] Basophils/Leukocytes Auto (Bld) [Pure # fraction] 0.0 E9/L Normal 0.0-0.2 [facility] Comment on above: Order Comment: Order Added by Discern Expert. Performed By: #### 2 103526, 1026603, 04065540, 6450971 ####[address] [address] Eosinophils/100 WBC (Bld) 7.9 % Normal 0.0-8.0 [facility] Comment on above: Order Comment: Order Added by Discern Expert. Performed By: #### 2 582111, 5255603, 16194960, 5628154 ####[address] [address] Eosinophils/Leukocytes Auto (Bld) [Pure # fraction] 0.8 E9/L High 0.0-0.5 [facility]Auto[facility] Comment on above: Order Comment: Order Added by Discern Expert. Performed By: #### 2 485683, 1141022, 78839207, 9794586 ####[address] [address] Lymphocytes/100 WBC (Bld) 9.5 % Low 14.0-50.0 [facility] Comment on above: Order Comment: Order Added by Discern Expert. Performed By: #### 2 097706, 8221059, 70248423, 0831417 ####[address] [address] Lymphocytes/Leukocytes Auto (Bld) [Pure # fraction] 1.0 E9/L Normal 1.0-4.0 [facility] Comment on above: Order Comment: Order Added by Discern Expert. Performed By: #### 2 112009, 9812241, 52549040, 3868847 ####[address] [address] Monocytes/100 WBC (Bld) 7.6 % Normal 4.0-14.0 F [facility] HemeAutoSS Comment on above: Order Comment: Order Added by Discern Expert. Performed By: #### 2 367249, 1158862, 13462868, 2154859 ####[address] [address] Monocytes/Leukocytes Auto (Bld) [Pure # fraction] 0.8 E9/L Normal 0.2-1.0 [facility] Comment on above: Order Comment: Order Added by Discern Expert. Performed By: #### 2 774099, 0797851, 15005024, 5700129 ####[address] [address] Neutrophils/100 WBC (Bld) 74.5 % Normal 36.0-75.0 [facility] Comment on above: Order Comment: Order Added by Discern Expert. Performed By: #### 2 713468, 5438408, 99825163, 5899936 ####[address] [address] Neutrophils/Leukocytes Auto (Bld) [Pure # fraction] 7.7 E9/L High 2.0-7.5 [facility] Comment on above: Order Comment: Order Added by Discern Expert. Performed By: #### 2 175958, 7119259, 50503365, 2723118 ####[address] [address] BMPOrdered By: SYSTEM SYSTEM on 12-20-2022 Anion gap [Moles/Vol] 8 mmol/L Normal 6-16 [facility] Comment on above: Performed By: #### 2 530171, 1607435, 04941421, 5679996 ####[facility] [address] [place] [address] Calcium [Mass/Vol] 7.9 mg/dL Low 8.9-11.1 [facility] Comment on above: Performed By: #### 2 962416, 8318909, 90716069, 8408984 ####[facility] [address] [address] Chloride [Moles/Vol] 105 mmol/L Normal 101-111 [facility] Comment on above: Performed By: #### 2 454389, 1839063, 77953226, 5624668 ####[facility] [address] [address] CO2 [Moles/Vol] 25 mmol/L Normal 21-31 [facility] Ashwin luanne Comment on above: Performed By: #### 2 087457, 9496969, 27635417, 9419736 ####[facility] [address] [address] Creatinine [Mass/Vol] 1.0 mg/dL Normal 0.5-1.3 [facility] Comment on above: Performed By: #### 2 321750, 8033275, 40625099, 2033646 ####[facility] [address] [address] Glucose [Mass/Vol] 106 mg/dL Normal 55-199 [facility] R emisol Comment on above: Result Comment: If t his glucose result represents a fasting glucose, interpretation should refer to the following reference range: 55-99 mg/dL Performed By: #### 2 884204, 8585331, 23732590, 1595177 ####[facility] [address] [place] [address] Potassium [Moles/Vol] 4.4 mmol/L Normal 3.5-5.3 [facility] Comment on above: Performed By: #### 2 342053, 6091725, 57712458, 9070660 ####[facility] [address] [place] [address] Sodium [Moles/Vol] 134 mmol/L Low 135-145 [facility] R emisol Comment on above: Performed By: #### 2 945406, 3209655, 96174805, 3249401 ####[facility] [address] [place] [address] Urea nitrogen [Mass/Vol] 22 mg/dL High 5-21 [facility] Remisol Comment on above: Performed By: #### 2 776634, 5304877, 84299855, 6495330 ####[address] [address] BMPon 12-20-2022 Urea nitrogen/Creatinine [Mass ratio] 22 No Units High 10-20 [facility] Comment on above: Performed By: #### 2 081493, 9615372, 84779346, 9778428 ####[address] [address] CBC w/ Auto DiffOrdered By: Bony Hdez on 12-20-2022 Erythrocyte distribution width (RBC) [Ratio] 14.7 % High 10.9-14.2 [facility] Comment on above: Performed By: #### 2 047358, 1978843, 29842306, 4390825 ####[address] [address] Hematocrit (Bld) [Volume fraction] 34.6 % Low 37.7-49.0 [facility] Comment on above: Performed By: #### 2 741987, 0669423, 22164327, 1112916 ####[address] [address] Hemoglobin (Bld) [Mass/Vol] 11.7 g/dL Low 13.5-17.5 [facility] Comment on above: Performed By: #### 2 568220, 4670055, 83207899, 2377668 ####[address] [place] [address] MCH (RBC) [Entitic mass] 28.6 pg Normal 27.0-34.0 [facility] Comment on above: Performed By: #### 2 080413, 5600863, 51468724, 7564439 ####[facility] [address] [address] MCHC (RBC) [Mass/Vol] 33.7 g/dL Normal 31.4-36.0 [facility] C [facility]eAutoSS Comment on above: Performed By: #### 2 305000, 2484347, 55593121, 7438520 ####[place] [address]157 MCV (RBC) [Entitic vol] 84.7 fL Normal 80.0-100.0 F C [facility] Comment on above: Performed By: #### 2 563660, 1514484, 25501860, 0883753 ####[facility] [address]157 Platelet mean volume (Bld) [Entitic vol] 9.5 fL Normal 6.4-10.8 [facility] Comment on above: Performed By: #### 2 593143, 2402653, 13947696, 7978474 ####[facility] [address] [address] Platelets (Bld) [#/Vol] 216.0 E9/L Normal 150.0-500.0 [facility] Comment on above: Performed By: #### 2 870360, 0436040, 84782268, 2207080 ####[facility] [address] [address] RBC (Bld) [#/Vol] 4.1 E12/L Low 4.3-5.9 [facility] Comment on above: Performed By: #### 2 937303, 9717370, 76946914, 7789777 ####[place] [address] [address] WBC corrected for nucl RBC Auto (Bld) [#/Vol] 10.3 E9/L Normal 4.0-11.0 [facility] Comment on above: Performed By: #### 2 582496, 0183505, 64971637, 9336590 ####[facility] [address] [place] [address] CHEMISTRYOrdered By: Lab ROP User on 12-20-2022 Glucose [Mass/Vol] 109 mg/dL High 55 - 99 mg/dL [facility] POC Subsection Comment on above: Result Comment: Gareth GARDINER POC Device SN [id number] Invalid Interpretation Code [facility] POC Subsection POC User ID [id number] Invalid Interpretation Code [facility] POC Subsection POC Username SAMANTHA LAMBERT Invalid Interpretation Code [facility] POC Subsection CHEMISTRYOrdered By: SYSTEM SYSTEM on 12-20-2022 Urea nitrogen/Creatinine [Mass ratio] 22 mg/mg High 10 - 20 [facility] Remisol Capillary Glucose POCon 11-23 Glucose [Mass/Vol] 198 mg/dL High 55-99 [facility] Comment on above: Result Comment: Yazmin bri Meter Performed By: #### 2 54045556 ####[facility] [address] [place] [address] Glucose [Mass/Vol] 109 mg/dL High 55-99 [facility] Comment on above: Result Comment: Gareth GARDINER Performed By: #### 2 01466249 ####[facility] [address] [place] [address] Discharge Documentationon Discharge Documentation [id number]#1.0 0CD:127 Normal [facility] Inpatient Patient Summaryon 12-20-2022 Inpatient Patient Summary Normal [facility] Message from Medicareon 11-23 Message from Medicare [id number]#1. 00CD:127 Normal [facility] Monitor Recordon 12-20-2022 Monitor Record [id number]#1. 00CD:127 Normal [facility] Monitor Record [id number]#1. 00CD:127 Normal [facility] Monitor Record [id number]#1. 00CD:127 Normal [facility] Progress Note-Nurseon 2022 Progress Note-Nurse SBAR report called fanta Robert. Patient was transferred into wheelchair x2 stand pivot. Patient discharged to [facility] room 17. Transport by Samantha Lambert POCT. Normal [facility] Transfer Documentson 023 Transfer Documents [id number]#1.0 0CD:127 Normal [facility] eGFROrdered By: Gift Pinpoint on 12-20-2022 GFR/1.73 sq M.predicted among non-blacks MDRD (S/P/Bld) [Vol rate/Area] 77 mL/min/1.73 m2 Normal >=59 [facility] Chem S Comment on above: Order Comment: Order added by Discern Expert. 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 Kidney failure is indicated at less than 15 mL/min/1.73m2. Performed By: #### 2 337649, 9906129, 75186521, 8073773 ####[facility] [address] [place] [address] Auto Diffon 12-19-2022 Basophils/100 WBC (Bld) 0.4 % Normal 0.0-2.0 [facility] Comment on above: Order Comment: Order Added by Discern Expert. Performed By: #### 1 4203938, 4929128, 3446196, 5742341 ####[facility] [address] [place] [address] Basophils/Leukocytes Auto (Bld) [Pure # fraction] 0.0 E9/L Normal 0.0-0.2 [facility] Comment on above: Order Comment: Order Added by Discern Expert. Performed By: #### 1 1733050, 2730640, 8060808, 8236665 ####[facility] [address] [place] [address] Eosinophils/100 WBC (Bld) 4.2 % Normal 0.0-8.0 [facility] Comment on above: Order Comment: Order Added by Discern Expert. Performed By: #### 1 6952504, 5542379, 5132946, 0680398 ####[place] [address] [place] [address] Eosinophils/Leukocytes Auto (Bld) [Pure # fraction] 0.6 E9/L High 0.0-0.5 [facility] Comment on above: Order Comment: Order Added by Discern Expert. Performed By: #### 1 2004897, 1870470, 6048348, 9095355 ####[address] [address] Lymphocytes/100 WBC (Bld) 7.3 % Low 14.0-50.0 [facility] Comment on above: Order Comment: Order Added by Discern Expert. Performed By: #### 1 2237180, 7562926, 4239467, 2167909 ####[address] [address] Lymphocytes/Leukocytes Auto (Bld) [Pure # fraction] 1.0 E9/L Normal 1.0-4.0 [facility] Comment on above: Order Comment: Order Added by Discern Expert. Performed By: #### 1 4739246, 2169730, 0730905, 1111731 ####[address] [address] Monocytes/100 WBC (Bld) 6.5 % Normal 4.0-14.0 [facility] Comment on above: Order Comment: Order Added by Discern Expert. Performed By: #### 1 1074088, 3414165, 6919414, 7485209 ####[address] [address] Monocytes/Leukocytes Auto (Bld) [Pure # fraction] 0.9 E9/L Normal 0.2-1.0 [facility] Comment on above: Order Comment: Order Added by Discern Expert. Performed By: #### 1 8513639, 9787626, 2114659, 4638412 ####[place] [address] [place] [address] Neutrophils/100 WBC (Bld) 81.6 % High 36.0-75.0 [facility] Comment on above: Order Comment: Order Added by Discern Expert. Performed By: #### 1 7520178, 4738873, 2541967, 3876095 ####[facility] [address] [place] [address] Neutrophils/Leukocytes Auto (Bld) [Pure # fraction] 10.7 E9/L High 2.0-7.5 [facility] Comment on above: Order Comment: Order Added by Discern Expert. Performed By: #### 1 6963326, 9798166, 8508195, 1059882 ####[place] [address] [place] [address] BMPon 12-19-2022 Anion gap [Moles/Vol] 11 mmol/L Normal 6-16 [facility] Comment on above: Performed By: #### 1 6141491, 0089995, 9728698, 7259573 ####[place] [address] [place] [address] Calcium [Mass/Vol] 8.5 mg/dL Low 8.9-11.1 [facility] Comment on above: Performed By: #### 1 8939923, 0939574, 1771106, 5067316 ####[facility] [address] [place] [address] Chloride [Moles/Vol] 103 mmol/L Normal 101-111 [facility] Comment on above: Performed By: #### 1 7809778, 3013085, 9789673, 4440865 ####[facility] [address] [place] [address] CO2 [Moles/Vol] 28 mmol/L Normal 21-31 [facility] Comment on above: Performed By: #### 1 2860460, 0959909, 8000796, 2640396 ####[facility] [address] [place] [address] Creatinine [Mass/Vol] 1.2 mg/dL Normal 0.5-1.3 [facility] Comment on above: Performed By: #### 1 0316652, 0374882, 5663983, 7964822 ####[facility] [address] [place] [address] Glucose [Mass/Vol] 86 mg/dL Normal 55-199 [facility] Comment on above: Result Comment: If t his glucose result represents a fasting glucose, interpretation should refer to the following reference range: 55-99 mg/dL Performed By: #### 1 5548968, 3199215, 1065716, 3824652 ####[facility] [address] [place] [address] Potassium [Moles/Vol] 4.5 mmol/L Normal 3.5-5.3 [facility] Comment on above: Performed By: #### 1 4294718, 8822722, 0546272, 0972998 ####[facility] [address] [place] [address] Sodium [Moles/Vol] 137 mmol/L Normal 135-145 [facility] Comment on above: Performed By: #### 1 3266962, 9792959, 1230855, 9089495 ####[facility] [address] [place] [address] Urea nitrogen [Mass/Vol] 35 mg/dL High 5-21 [facility] Comment on above: Performed By: #### 1 7402808, 1986727, 9140677, 6548298 ####[facility] [address] [place] [address] Urea nitrogen/Creatinine [Mass ratio] 29 No Units High 10-20 [facility] Comment on above: Performed By: #### 1 4982794, 7417800, 4442712, 2267785 ####[facility] [address] [place] [address] CBC w/ Auto Diffon 07-29-202 3 Erythrocyte distribution width (RBC) [Ratio] 15.0 % High 10.9-14.2 [facility] Comment on above: Performed By: #### 1 2508931, 6722816, 3717551, 7066288 ####[facility] [address] [place] [address] Hematocrit (Bld) [Volume fraction] 38.4 % Normal 37.7-49.0 [facility] Comment on above: Performed By: #### 1 3114115, 0335101, 1731773, 1090733 ####[place] [address] [place] [address] Hemoglobin (Bld) [Mass/Vol] 12.7 g/dL Low 13.5-17.5 [facility] Comment on above: Performed By: #### 1 8374824, 9919251, 9379511, 8560351 ####[address] [address] MCH (RBC) [Entitic mass] 27.9 pg Normal 27.0-34.0 [facility] Comment on above: Performed By: #### 1 3526248, 5405034, 0223205, 6032170 ####[place] [address] [place] [address] MCHC (RBC) [Mass/Vol] 32.9 g/dL Normal 31.4-36.0 [facility] Comment on above: Performed By: #### 1 7851437, 2738321, 3350141, 0222637 ####[place] [address] [place] [address] MCV (RBC) [Entitic vol] 84.8 fL Normal 80.0-100.0 [facility] Comment on above: Performed By: #### 1 1197228, 6413303, 5140269, 1067633 ####[place] [place] [address] Platelet mean volume (Bld) [Entitic vol] 9.5 fL Normal 6.4-10.8 [facility] Comment on above: Performed By: #### 1 5759118, 2296063, 2398168, 2070106 ####[facility] [address] [place] [address] Platelets (Bld) [#/Vol] 230.0 E9/L Normal 150.0-500.0 [facility] Comment on above: Performed By: #### 1 8886198, 5778046, 8574821, 2020722 ####[place] [address] [place] [address] RBC (Bld) [#/Vol] 4.5 E12/L Normal 4.3-5.9 [facility] Comment on above: Performed By: #### 1 1516024, 6870924, 6401067, 5165552 ####[facility] [address] [place] [address] WBC corrected for nucl RBC Auto (Bld) [#/Vol] 13.1 E9/L High 4.0-11.0 [facility] Comment on above: Performed By: #### 1 9622340, 3022530, 7188530, 9681702 ####[facility] [address] [place] [address] CHEMISTRYOrdered By: Lab ROP User on 12-19-2022 Glucose [Mass/Vol] 210 mg/dL High 55 - 99 mg/dL [facility] POC Subsection Comment on above: Result Comment: Gareth GARDINER POC Device SN [id number] Invalid Interpretation Code [facility] POC Subsection POC User ID [id number] Invalid Interpretation Code [facility] POC Subsection POC Username JODITRESAaPtti SHER Invalid Interpretation Code [facility] POC Subsection Glucose [Mass/Vol] 111 mg/dL High 55 - 99 mg/dL [facility] POC Subsection Comment on above: Result Comment: Gareth GARDINER POC Device SN [id number] Invalid Interpretation Code FT POC Subsection POC User ID [id number] Invalid Interpretation Code [facility] POC Subsection POC Username KELLEN HERNANDEZ Invalid Interpretation Code [facility] POC Subsection CHEMISTRYOrdered By: SYSTEM SYSTEM on 12-19-2022 Anion gap [Moles/Vol] 11 mmol/L Normal 6 - 16 mEq/L [facility] Remisol Calcium [Mass/Vol] 8.5 mg/dL Low 8.9 - 11. 1 mg/dL [facility] Chloride [Moles/Vol] 103 mmol/L Normal 101 - 1 11 mmol/L [facility] CO2 [Moles/Vol] 28 mmol/L Normal 21 - 31 mmol/L [facility] Creatinine [Mass/Vol] 1.2 mg/dL Normal 0.5 - 1.3 mg/dL [facility] GFR/1.73 sq M.predicted among non-blacks MDRD (S/P/Bld) [Vol rate/Area] 62 mL/min/1.73 m2 Normal >=59mL/min/ 1.73 m2 [facility] Chem S Glucose [Mass/Vol] 86 mg/dL Normal 55 - 199 mg/dL [facility] Remisol Potassium [Moles/Vol] 4.5 mmol/L Normal 3.5 - 5.3 mmol/L [facility] Remisol Sodium [Moles/Vol] 137 mmol/L Normal 135 - 145 mmol/L [facility] Remisol Urea nitrogen [Mass/Vol] 35 mg/dL High 5 - 21 mg/dL [facility] Remisol Urea nitrogen/Creatinine [Mass ratio] 29 mg/mg High 10 - 20 [facility] Remisol Capillary Glucose POCon 11-22 Glucose [Mass/Vol] 210 mg/dL High 55-99 [facility] Comment on above: Result Comment: Gareth GARDINER Performed By: #### 2 [id number] ####[facility] [address] [place] [address] Glucose [Mass/Vol] 111 mg/dL High 55-99 [facility] Comment on above: Result Comment: Gareth GARDINER Performed By: #### 2 06785734 ####[facility] [address] [place] [address] Glucose [Mass/Vol] 201 mg/dL High 55-99 [facility] Comment on above: Result Comment: Gareth GARDINER Performed By: #### 2 30301435 ####[facility] [address] [place] [address] Glucose [Mass/Vol] 93 mg/dL Normal 55-99 [facility] Comment on above: Result Comment: Gareth guerrero RN/ Performed By: #### 2 69400705 ####[facility] [address] [place] [address] HEMATOLOGYOrdered By: SYSTEM SYSTEM on 12-19-2022 Basophils/100 [...] E12/L Normal 4.3 - 5.9 E12/L [facility] HemeAutoSS WBC corrected for nucl RBC Auto (Bld) [#/Vol] 13.1 E9/L High 4.0 - 11.0 E9/L [facility] HemeAutoSS Monitor Recordon 12-19-2022 Monitor Record [id number]#1. 00CD:127 Normal [facility] Monitor Record [id number]#1. 00CD:127 Normal [facility] Progress Note-Physicianon Progress Note-Physician Normal [facility] Comment on above: Result Comment: Elec tronically Signed By: MICHAEL POTTS, Jamir\.br\Date and Time Signed: 12/19/22 09:47 EDT eGFRon 12-19-2022 GFR/1.73 sq M.predicted among non-blacks MDRD (S/P/Bld) [Vol rate/Area] 62 mL/min/1.73 m2 Normal >=59 [facility] Comment on above: Order Comment: Order added by Discern Expert. 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 Kidney failure is indicated at less than 15 mL/min/1.73m2. Performed By: #### 1 2283972, 2281595, 3218526, 1645340 ####[facility] [address] [place] [address] Auto Diffon 12-18-2022 Basophils/100 WBC (Bld) 0.4 % Normal 0.0-2.0 [facility] Comment on above: Order Comment: Order Added by Discern Expert. Performed By: #### 2 621708, 8010046 ####[facility] [address] [place] [address] Basophils/Leukocytes Auto (Bld) [Pure # fraction] 0.1 E9/L Normal 0.0-0.2 [facility] Comment on above: Order Comment: Order Added by Discern Expert. Performed By: #### 2 949780, 9573786 ####[address] [address] Eosinophils/100 WBC (Bld) 2.8 % Normal 0.0-8.0 [facility] Comment on above: Order Comment: Order Added by Bethany Expert. Performed By: #### 2 270945, 6187874 ####[address] [address] Eosinophils/Leukocytes Auto (Bld) [Pure # fraction] 0.4 E9/L Normal 0.0-0.5 [facility] Comment on above: Order Comment: Order Added by Bethany Expert. Performed By: #### 2 957848, 9230576 ####[address] [address] Lymphocytes/100 WBC (Bld) 9.0 % Low 14.0-50.0 [facility] Comment on above: Order Comment: Order Added by Discern Expert. Performed By: #### 2 464578, 3313162 ####[facility] [address] [place] [address] Lymphocytes/Leukocytes Auto (Bld) [Pure # fraction] 1.3 E9/L Normal 1.0-4.0 [facility] Comment on above: Order Comment: Order Added by Bethany Expert. Performed By: #### 2 083399, 0802651 ####[facility] [address] [place] [address] Monocytes/100 WBC (Bld) 8.3 % Normal 4.0-14.0 [facility] Comment on above: Order Comment: Order Added by Discern Expert. Performed By: #### 2 651816, 6250665 ####[address] [address] Monocytes/Leukocytes Auto (Bld) [Pure # fraction] 1.3 E9/L High 0.2-1.0 [facility] Comment on above: Order Comment: Order Added by Discern Expert. Performed By: #### 2 026814, 6940582 ####[address] [address] Neutrophils/100 WBC (Bld) 79.5 % High 36.0-75.0 [facility] Comment on above: Order Comment: Order Added by Bethany Expert. Performed By: #### 2 069511, 2990840 ####[address] [address] Neutrophils/Leukocytes Auto (Bld) [Pure # fraction] 11.9 E9/L High 2.0-7.5 [facility] Comment on above: Order Comment: Order Added by Bethany Expert. Performed By: #### 2 794165, 7969442 ####[address] [address] Basophils/100 WBC (Bld) 0.6 % Normal 0.0-2.0 [facility] Comment on above: Order Comment: Order Added by Bethany Expert. Performed By: #### 1 3721604, 8373323, 95687227, 4972291, 60392824, 30792912, 2308948 ####[address] [place] [address] Basophils/Leukocytes Auto (Bld) [Pure # fraction] 0.1 E9/L Normal 0.0-0.2 [facility] Comment on above: Order Comment: Order Added by Bethany Expert. Performed By: #### 1 8834649, 7594912, 90349050, 6814146, 67127954, 24870360, 6147740 ####[address] [place] [address] Eosinophils/100 WBC (Bld) 2.0 % Normal 0.0-8.0 [facility] Comment on above: Order Comment: Order Added by Discern Expert. Performed By: #### 1 7602012, 5608962, 94205155, 8817913, 27286668, 13488366, 5178669 ####[address] [address] Eosinophils/Leukocytes Auto (Bld) [Pure # fraction] 0.3 E9/L Normal 0.0-0.5 [facility] Comment on above: Order Comment: Order Added by Discern Expert. Performed By: #### 1 1200641, 6127983, 46558532, 8546792, 02398193, 07129475, 1034757 ####[address] [address] Lymphocytes/100 WBC (Bld) 7.6 % Low 14.0-50.0 [facility] Comment on above: Order Comment: Order Added by Discern Expert. Performed By: #### 1 2533713, 4808848, 20855368, 9901556, 83383108, 96386721, 4323594 ####[address] [address] Lymphocytes/Leukocytes Auto (Bld) [Pure # fraction] 1.3 E9/L Normal 1.0-4.0 [facility] Comment on above: Order Comment: Order Added by Discern Expert. Performed By: #### 1 4970064, 1052036, 27305951, 8621515, 02859933, 34170672, 6201430 ####[address] [address] Monocytes/100 WBC (Bld) 7.8 % Normal 4.0-14.0 [facility] Comment on above: Order Comment: Order Added by Discern Expert. Performed By: #### 1 8917740, 1957416, 89946089, 1481607, 77476584, 91557258, 9378343 ####[address] [place] [address] Monocytes/Leukocytes Auto (Bld) [Pure # fraction] 1.3 E9/L High 0.2-1.0 [facility] Comment on above: Order Comment: Order Added by Discern Expert. Performed By: #### 1 6152700, 2331903, 50506294, 5494494, 27844949, 19898414, 6514611 ####[address] [place] [address] Neutrophils/100 WBC (Bld) 82.0 % High 36.0-75.0 [facility] Comment on above: Order Comment: Order Added by Discern Expert. Performed By: #### 1 5505554, 4646663, 73612181, 9225593, 63878787, 43951102, 8112952 ####[address] [place] [address] Neutrophils/Leukocytes Auto (Bld) [Pure # fraction] 13.7 E9/L High 2.0-7.5 [facility] Comment on above: Order Comment: Order Added by Discern Expert. Performed By: #### 1 1278276, 6563837, 71612653, 5075657, 84270937, 82076718, 7584328 ####[facility] [address] [place] [address] BMPon 12-18-2022 Creatinine [Mass/Vol] 1.6 mg/dL High 0.5-1.3 [facility] Comment on above: Performed By: #### 2 446595, 7813540, 8576331507, 98133921, 26674995 ####[facility] [address] [place] [address] Urea nitrogen [Mass/Vol] 47 mg/dL High 5-21 [facility] Comment on above: Performed By: #### 2 395245, 0941033, 4117679451, 78177962, 35114336 ####[facility] [address] [place] [address] Urea nitrogen/Creatinine [Mass ratio] 29 No Units High 10-20 [facility] Comment on above: Performed By: #### 2 074590, 3286344, 1847697060, 11419457, 15695096 ####[facility] [address] [place] [address] Anion gap [Moles/Vol] 12 mmol/L Normal 6-16 [facility] Comment on above: Performed By: #### 2 982210, 2248773, 9511184525, 16146552, 55140766 ####[facility] [address] [place] [address] Calcium [Mass/Vol] 8.7 mg/dL Low 8.9-11.1 [facility] Comment on above: Performed By: #### 2 842269, 8815679, 4702756047, 34522880, 57496954 ####[facility] [address] [place] [address] Chloride [Moles/Vol] 97 mmol/L Low 101-111 [facility] Comment on above: Performed By: #### 2 425095, 6013828, 2616669791, 74577807, 93240485 ####[facility] [address] [place] [address] CO2 [Moles/Vol] 32 mmol/L High 21-31 [facility] Comment on above: Performed By: #### 2 219978, 6155530, 2644342469, 33723941, 06619290 ####[facility] [address] [place] [address] Glucose [Mass/Vol] 131 mg/dL Normal 55-199 [facility] Comment on above: Result Comment: If t his glucose result represents a fasting glucose, interpretation should refer to the following reference range: 55-99 mg/dL Performed By: #### 2 841369, 2633738, 7170569557, 43298285, 00943400 ####[facility] [address] [place] [address] Potassium [Moles/Vol] 3.7 mmol/L Normal 3.5-5.3 [facility] Comment on above: Performed By: #### 2 577182, 0086074, 6147838869, 47755914, 86809893 ####[facility] [address] [place] [address] Sodium [Moles/Vol] 137 mmol/L Normal 135-145 [facility] Comment on above: Performed By: #### 2 970797, 8739102, 0389157277, 17516240, 16818583 ####[facility] [address] [place] [address] Creatinine [Mass/Vol] 1.8 mg/dL High 0.5-1.3 [facility] Comment on above: Performed By: #### 1 6401260, 1074336, 97846191, 6702486, 81229992, 26152284, 3391515 ####[facility] [address] [place] [address] Urea nitrogen [Mass/Vol] 49 mg/dL High 5-21 [facility] Comment on above: Performed By: #### 1 3686970, 3070090, 26214342, 3323163, 99332864, 74015155, 7143463 ####[facility] [address] [place] [address] Urea nitrogen/Creatinine [Mass ratio] 27 No Units High 10-20 [facility] Comment on above: Performed By: #### 1 6357350, 4244009, 19955901, 9414787, 27476297, 14659768, 4208495 ####[facility] [address] [place] [address] Anion gap [Moles/Vol] 18 mmol/L High 6-16 [facility] Comment on above: Performed By: #### 1 8852397, 7678456, 85255698, 2471962, 52098082, 29563175, 0983000 ####[facility] [address] [place] [address] Calcium [Mass/Vol] 9.3 mg/dL Normal 8.9-11.1 [facility] Comment on above: Performed By: #### 1 3617681, 3000097, 68986884, 8582466, 75487834, 59549500, 4763025 ####[facility] [address] [place] [address] Chloride [Moles/Vol] 93 mmol/L Low 101-111 [facility] Comment on above: Performed By: #### 1 2724509, 6726645, 88752113, 0383546, 79683467, 99674286, 7391867 ####[facility] [address] [place] [address] CO2 [Moles/Vol] 29 mmol/L Normal 21-31 [facility] Comment on above: Performed By: #### 1 5296388, 9134440, 62458156, 9390885, 03693723, 64872909, 4674088 ####[facility] [address] [place] [address] Glucose [Mass/Vol] 137 mg/dL Normal 55-199 [facility] Comment on above: Result Comment: If t his glucose result represents a fasting glucose, interpretation should refer to the following reference range: 55-99 mg/dL Performed By: #### 1 7578011, 3855349, 01644549, 6564530, 56683843, 76944377, 3496389 ####[facility] [address] [place] [address] Potassium [Moles/Vol] 4.0 mmol/L Normal 3.5-5.3 [facility] Comment on above: Performed By: #### 1 2448748, 8863256, 31918422, 0327582, 63397348, 54442837, 0990253 ####[facility] [address] [place] [address] Sodium [Moles/Vol] 136 mmol/L Normal 135-145 [facility] Comment on above: Performed By: #### 1 4108074, 5874719, 00246922, 5264071, 38372785, 64399134, 8337968 ####[facility] [address] [place] [address] BNPon 12-18-2022 Int Ctr BNP Pass Normal [facility] Comment on above: Performed By: #### 1 4965087, 0683769, 63242783, 3591026, 39773804, 44017458, 4854860 ####[facility] [address] [place] [address] Natriuretic peptide B (Bld) [Mass/Vol] 219 pg/mL High 5-80 [facility] Comment on above: Performed By: #### 1 8844622, 4196978, 50163797, 1951353, 99537281, 28526318, 1107726 ####[facility] [address] [place] [address] CBC w/ Auto Diffon Erythrocyte distribution width (RBC) [Ratio] 14.8 % High 10.9-14.2 [facility] Comment on above: Performed By: #### 2 936627, 1908130 ####[place] [address] Hematocrit (Bld) [Volume fraction] 37.8 % Normal 37.7-49.0 [facility] Comment on above: Performed By: #### 2 884805, 0438395 ####[facility] [address] [place] [address] Hemoglobin (Bld) [Mass/Vol] 12.7 g/dL Low 13.5-17.5 [facility] Comment on above: Performed By: #### 2 744933, 1296466 ####[facility] [address] [place] [address] MCH (RBC) [Entitic mass] 28.3 pg Normal 27.0-34.0 [facility] Comment on above: Performed By: #### 2 747164, 5785604 ####[address] [address] MCHC (RBC) [Mass/Vol] 33.6 g/dL Normal 31.4-36.0 [facility] Comment on above: Performed By: #### 2 232452, 6535923 ####[address] [place] [address] MCV (RBC) [Entitic vol] 84.2 fL Normal 80.0-100.0 [facility] Comment on above: Performed By: #### 2 435310, 7312069 ####[address] [address] Platelet mean volume (Bld) [Entitic vol] 9.2 fL Normal 6.4-10.8 [facility] Comment on above: Performed By: #### 2 182382, 7192868 ####[address] [address] Platelets (Bld) [#/Vol] 219.0 E9/L Normal 150.0-500.0 [facility] Comment on above: Performed By: #### 2 425239, 4377996 ####[address] [address] RBC (Bld) [#/Vol] 4.5 E12/L Normal 4.3-5.9 [facility] Comment on above: Performed By: #### 2 418228, 2225233 ####[address] [address] WBC corrected for nucl RBC Auto (Bld) [#/Vol] 15.0 E9/L High 4.0-11.0 [facility] Comment on above: Performed By: #### 2 297447, 8022857 ####[address] [address] Erythrocyte distribution width (RBC) [Ratio] 14.9 % High 10.9-14.2 [facility] Comment on above: Performed By: #### 1 4143220, 5997039, 64931635, 8149069, 05189419, 14862015, 4262203 ####[facility] [address] [place] [address] Hematocrit (Bld) [Volume fraction] 42.8 % Normal 37.7-49.0 [facility] Comment on above: Performed By: #### 1 2748446, 3882993, 72711754, 5170057, 86830010, 00320173, 6329812 ####[facility] [address] [place] [address] Hemoglobin (Bld) [Mass/Vol] 14.3 g/dL Normal 13.5-17.5 [facility] Comment on above: Performed By: #### 1 9012585, 3670042, 05816529, 5854056, 46871273, 20454745, 8648060 ####[facility] [address] [place] [address] MCH (RBC) [Entitic mass] 28.1 pg Normal 27.0-34.0 [facility] Comment on above: Performed By: #### 1 0778020, 3128369, 04699668, 0037086, 79897731, 07473916, 2837973 ####[facility] [address] [place] [address] MCHC (RBC) [Mass/Vol] 33.3 g/dL Normal 31.4-36.0 [facility] Comment on above: Performed By: #### 1 7366226, 8882979, 00024060, 4929850, 49129747, 47581089, 4337203 ####[facility] [address] [place] [address] MCV (RBC) [Entitic vol] 84.3 fL Normal 80.0-100.0 [facility] Comment on above: Performed By: #### 1 2694853, 9889766, 40217463, 2765093, 80650671, 93834984, 4002267 ####[facility] [address] [place] [address] Platelet mean volume (Bld) [Entitic vol] 9.8 fL Normal 6.4-10.8 [facility] Comment on above: Performed By: #### 1 1982689, 0507893, 13111380, 8242488, 55400232, 72881060, 8710799 ####[facility] [address] [place] [address] Platelets (Bld) [#/Vol] 234.0 E9/L Normal 150.0-500.0 [facility] Comment on above: Performed By: #### 1 6326596, 2805424, 20622782, 0506272, 81690083, 04140779, 8709503 ####[facility] [address] [place] [address] RBC (Bld) [#/Vol] 5.1 E12/L Normal 4.3-5.9 [facility] Comment on above: Performed By: #### 1 6646982, 4945451, 24202029, 3664344, 66900559, 01745094, 2768133 ####[facility] [address] [place] [address] WBC corrected for nucl RBC Auto (Bld) [#/Vol] 16.7 E9/L High 4.0-11.0 [facility] Comment on above: Result Comment: Slid e reviewed by JENNIFER. Performed By: #### 1 8767564, 1180039, 77402297, 6783418, 75691554, 40997309, 6615783 ####[facility] [address] [place] [address] CHEMISTRYOrdered By: SYSTEM SYSTEM on 12-18-2022 Troponin [...] 55 [iU]/d Normal 14 - 261 Int._Unit/L [facility] CO2 [Moles/Vol] 32 mmol/L High 21 - 31 mmol/L [facility] Creatinine [Mass/Vol] 1.6 mg/dL High 0.5 - 1.3 mg/dL [facility] GFR/1.73 sq M.predicted among non-blacks MDRD (S/P/Bld) [Vol rate/Area] 44 mL/min/1.73 m2 Low >=59mL/min/ 1.73 m2 [facility] Chem S Glucose [Mass/Vol] 131 mg/dL Normal 55 - 199 mg/dL [facility] Potassium [Moles/Vol] 3.7 mmol/L Normal 3.5 - 5.3 mmol/L [facility] Procalcitonin 0.09 ng/mL Normal 0.00 - 0.50 ng/mL [facility] Sodium [Moles/Vol] 137 mmol/L Normal 135 - 145 mmol/L [facility] Troponin I.cardiac [Mass/Vol] 22.50 pg/mL Normal 15.90 - 38.40 pg/mL [facility] Urea nitrogen [Mass/Vol] 47 mg/dL High 5 - 21 mg/dL [facility] Urea nitrogen/Creatinine [Mass ratio] 29 mg/mg High 10 - 20 [facility] CHEMISTRYOrdered By: Yanet Apodaca on 12-18-2022 Troponin I.cardiac [Mass/Vol] 18.80 pg/mL Normal 15.90 - 38.40 pg/mL [facility] Natriuretic peptide B (Bld) [Mass/Vol] 219 pg/mL High 5 - 80 pg/mL [facility] HemeManSS CKon 12-18-2022 CK [Catalytic activity/Vol] 55 Int._Unit/L Normal 14-261 [facility] Comment on above: Performed By: #### 2 646648, 7920210, 8249808056, 61026614, 51975385 ####[facility] [address] [place] [address] COAGULATIONOrdered By: Rachael Apodaca on 12-18-2022 aPTT Coag (PPP) [Time] 30.6 s Normal 25.1 - 36.5 second(s) [facility] Auto Coag INR Coag (PPP) [Relative time] 1.1 {INR} Invalid Interpretation Code [facility] Auto Coag PT Coag (PPP) [Time] 12.5 s Normal 9.4 - 1 2.5 second(s) [facility] Auto Coag CT Head or Brain w/o Contras ton 12-18-2022 CT Head or Brain w/o Contrast Normal [facility] CT Spine Cervical w/o Contra ston 12-18-2022 CT Spine Cervical w/o Contrast Normal [facility] Capillary Glucose POCon 11-22 Glucose [Mass/Vol] 212 mg/dL High 55-99 [facility] Comment on above: Result Comment: Gareth GARDINER Performed By: #### 2 88823619 ####[facility] [address] [place] [address] Glucose [Mass/Vol] 97 mg/dL Normal 55-99 [facility] Comment on above: Result Comment: Yazmin bri Meter Performed By: #### 2 63950765 ####[facility] [address] [place] [address] Glucose [Mass/Vol] 119 mg/dL High 55-99 [facility] Comment on above: Result Comment: Gareth GARDINER Performed By: #### 2 42884244 ####[facility] [address] [place] [address] Glucose [Mass/Vol] 131 mg/dL High 55-99 [facility] Comment on above: Result Comment: Gareth GARDINER Performed By: #### 2 44914240 ####[facility] [address] [place] [address] Consent for Treatmenton 11-22 Consent for Treatment [id number]#1. 00CD:127 Normal [facility] ED Clinical Summaryon 2022 ED Clinical Summary Normal [facility] ED Note-Physicianon 12-19-19 ED Note-Physician Normal [facility] Comment on above: Result Comment: Elec tronically Signed By: Guilherme POTTS, Malcom\.br\Date and Time Signed: 12/18/22 04:33 EDT ED Patient Education Noteon 12-18-2022 ED Patient Education Note Normal [facility] ED Patient Summaryon 023 ED Patient Summary Normal [facility] ED Traumaon 12-18-2022 ED Trauma [id number]#1. 00CD:127 Normal [facility] HEMATOLOGYOrdered By: SYSTEM SYSTEM on 12-18-2022 [...] E9/L High 4.0 - 11.0 E9/L [facility] HemeAutoSS Insurance Correspondence Off iceon 12-18-2022 Insurance Correspondence Office [id number]#[id number] 0CD:127 Normal [facility] Interdisciplinary Note - Santosh e Manageron 12-18-2022 Interdisciplinary Note - [place] Comment on above: Result Comment: Elec tronically Signed By: Lucero Watson\.br\Date and Time Signed: 12/18/22 14:57 EDT Interdisciplinary Note - Dejuan singon 12-18-2022 Interdisciplinary Note - Nursing Patient he is confused and he does not able to answer my questions. informed staff in [facility] to send current medication list in fax.3N Normal [facility] Interdisciplinary Note - PTo n 12-18-2022 Interdisciplinary Note - PT Normal [facility] Laboratory - Microbiology an d Antimicrobial susceptibilityOrdered By: Karen Vergara on 12-18-2022 Bacteria identified Cx Nom (U) 10,000 cfu/ml Staphylococcus species Continuing incubation [facility] Monitor Recordon 12-18-2022 Monitor Record [id number]#1. 00CD:127 Normal [facility] No Panel InformationOrdered By: Karen Vergara on 12-18-2022 Blood Culture Charcoal Streptococcus spe cies Staphylococcus species coagulase negative In 1 of 2 blood culture bottles drawn. Isolated from aerobic bottle Preliminary gram stain results of gram positive cocci in clusters Result called to Dr. Mckinney by and results read back for confirmation on 12/19/2022 09:39:39 [facility] No Panel InformationOrdered By: ANGPROCESSSERVER MICROBIOLOGY on 12-18-2022 Blood Culture Charcoal No growth at 2 da ys. Final to follow at 7 days. [facility] PT & PTTon 12-18-2022 aPTT Coag (PPP) [Time] 30.6 second(s) Normal 25.1-36.5 [facility] Comment on above: Result Comment: Para [...] same coagulation reagent and instrumentation as [facility]. Currently there are no coagulation studies available worldwide for children to 14 days, and no normal ranges. Heparin therapeutic range (represented by Anti-Factor Xa activity of 0.2 - 0.4 U/mL) corresponds to PTT of 56.6 - 109.0 sec. Performed By: #### 1 8421113, 4170989, 85898312, 4596771, 96051654, 64551539, 5745474 ####[facility] [address] [place] [address] INR Coag (PPP) [Relative time] 1.1 {INR} Invalid Interpretation Code [facility] Comment on above: Result Comment: INR results are specifically intended to assess patients stabilized on long-term Anticoagulation therapy suggested INR?s ?Less Intensive Anticoagulation? 2.0 ? 3.0Conventional Range 3.0 ? 4.5 Performed By: #### 1 5085944, 2559318, 29704796, 0521671, 24874366, 42477281, 5105389 ####[facility] [address] [place] [address] PT Coag (PPP) [Time] 12.5 second(s) Normal 9.4-12.5 [facility] Comment on above: Result Comment: 15 [...] same coagulation reagent and instrumentation as [facility]. Currently there are no coagulation studies available worldwide for children to 14 days, and no normal ranges. Performed By: #### 1 2053550, 7445310, 42263176, 6020007, 87772187, 42176305, 4917184 ####[facility] [address] [place] [address] Procalcitoninon 12-18-2022 Procalcitonin .09 ng/mL Normal .00-.50 [facility] Comment on above: Result [...] to 24 hours. Performed By: #### 2 534280, 1775031, 1378773776, 73236665, 48989001 ####[facility] [address] [place] [address] RAD - Preliminary Cat Scan R eporton 12-18-2022 RAD - Preliminary Cat Scan Report [id number]#1. 00CD:127 Normal [facility] Troponin 0 Hr.on 12-18-2022 Troponin I.cardiac [Mass/Vol] 23.50 pg/mL Normal 15.90-38.40 [facility] Comment on above: Result Comment: The 95% CI (Confidence Interval) PPV (Positive Predictive Value) for myocardial infarction in females is 38 pg/mL, in males 51 pg/mL. The results should be used in conjunction with clinical conditions of myocardial infarction.(Access High Sensitivity Troponin I Instructions For Use, [employer], December 2017) Performed By: #### 1 0438357, 8826989, 97510153, 1338765, 50894111, 95593364, 4847466 ####[facility] [address] [place] [address] Troponin 3 Hr.on 12-18-2022 Troponin I.cardiac [Mass/Vol] 18.80 pg/mL Normal 15.90-38.40 [facility] Comment on above: Result Comment: The 95% CI (Confidence Interval) PPV (Positive Predictive Value) for myocardial infarction in females is 38 pg/mL, in males 51 pg/mL. The results should be used in conjunction with clinical conditions of myocardial infarction.(Access High Sensitivity Troponin I Instructions For Use, [employer], December 2017) Performed By: #### 1 6187932 ####[facility] [address] [place] [address] Troponin 6 Hr.on 12-18-2022 Troponin I.cardiac [Mass/Vol] 22.50 pg/mL Normal 15.90-38.40 [facility] Comment on above: Result Comment: The 95% CI (Confidence Interval) PPV (Positive Predictive Value) for myocardial infarction in females is 38 pg/mL, in males 51 pg/mL. The results should be used in conjunction with clinical conditions of myocardial infarction.(Access High Sensitivity Troponin I Instructions For Use, [employer], December 2017) Performed By: #### 2 519383, 3499270, 1830977423, 73372685, 83262965 ####[facility] [address] [place] [address] Troponin 9 Hr.on 12-18-2022 Troponin I.cardiac [Mass/Vol] 18.90 pg/mL Normal 15.90-38.40 [facility] Comment on above: Result Comment: The 95% CI (Confidence Interval) PPV (Positive Predictive Value) for myocardial infarction in females is 38 pg/mL, in males 51 pg/mL. The results should be used in conjunction with clinical conditions of myocardial infarction.([email or web address] High Sensitivity Troponin I Instructions For Use, [employer], December 2017) Performed By: #### 1 1296873 ####[address] [address] UA With Cult Reflexon 2022 Bacteria LM Ql (Urine sed) TRACE Normal Trace [facility] Comment on above: Performed By: #### 1 0872728, 4389419 ####[address] [address] Bilirubin Ql (U) Negative Normal Negative [facility] Comment on above: Performed By: #### 1 7540055, 9865913 ####[address] [address] Clarity (U) CLEAR Normal Clear [facility] Comment on above: Performed By: #### 1 9510696, 9856359 ####[address] [address] Color (U) YELLOW Normal Yellow [facility] Comment on above: Performed By: #### 1 3313064, 3019848 ####[place] [place] [address] Epithelial cells.squamous LM.HPF (Urine sed) [#/Area] 0-2 Normal 0-2 [facility] Comment on above: Performed By: #### 1 3673731, 9941754 ####[facility] [address] [place] [address] Glucose Test strip (U) [Mass/Vol] Negative Normal Negative [facility] Comment on above: Performed By: #### 1 7942777, 3260799 ####[facility] [address] [place] [address] Hemoglobin Ql (U) TRACE Abnormal Negative [facility] Comment on above: Performed By: #### 1 [id number], [id number] ####[facility] [address] [place] [address] Ketones (U) [Mass/Vol] Negative Normal Negative [facility] Comment on above: Performed By: #### 1 [id number], 6966259 ####[facility] [address] [place] [address] [place]-Graham.plasma/Florence-Graham.R BC (Bld) [Mass ratio] 0-3 Normal 0-3 [facility] Comment on above: Performed By: #### 1 3409795, 4220606 ####[facility] [address] [place] [address], [place] [address] Nitrite Ql (U) Negative Normal Negative [facility] Comment on above: Performed By: #### 1 8634027, 9132132 ####[facility] [address]fth[address]bi[address] [place] [address] pH (U) 6.5 [pH] Invalid Interpretation Code 5.0-9.0 [facility] Comment on above: Performed By: #### 1 8691465, 2912139 ####[facility] Jhintykoww587 [place] [address] Protein (U) [Mass/Vol] Negative Normal Negative [facility] Comment on above: Performed By: #### 1 6037876, 9476340 ####[facility] Pdxyaqxizc003 [place] [address] Specific gravity (U) [Rel density] 1.020 Invalid Interpretation Code 1.005-1.030 [facility] Comment on above: Performed By: #### 1 3472562, 4606075 ####[facility] [address] [place] [address] Type of Urine collection method Clean Catch Normal [facility] Comment on above: Performed By: #### 1 7184639, 1929448 ####[facility] [address] [place] [address]757 Urobilinogen Qn (U) 0.2 {Lei'U}/dL Normal 0.0-1.0 [facility] Comment on above: Performed By: #### 1 8668640, 2678229 ####[place] [address] WBC Auto Ql (U) 3+ Abnormal Negative [facility] Comment on above: Performed By: #### 1 0215519, 3643764 ####[facility] [address] [place] [address] WBC LM.HPF (Urine sed) [#/Area] /[HPF] Abnormal 0-5 [facility] Comment on above: Performed By: #### 1 1908566, 7858239 ####[facility] [address] [place] [address] URINALYSISOrdered By: Houston Castillo on 12-18-2022 Bacteria LM Ql (Urine sed) Trace /HPF Normal Trace/HPF [facility] UA Auto SS Bilirubin Ql (U) Negative (12/18/22 4:45 PM) Normal Negative [facility] Auto SS Clarity (U) Clear (12/18/22 [...] PM) Normal Negative [facility] UA Auto SS Florence-Graham.plasma/Florence-Graham.R BC (Bld) [Mass ratio] 0-3 /HPF Normal [...] [facility] UA Auto SS Urobilinogen Qn (U) 0.9516037 {Lei'U}/dL Normal 0.0 - 1.0 EU/dL [facility] UA Auto SS WBC Auto Ql (U) 3+ *ABN* (12/18/22 4:45 PM) Invalid Interpretation Code Negative [facility] UA Auto SS WBC LM.HPF (Urine sed) [#/Area] /[HPF] Invalid Interpretation Code 0-5/HPF [facility] UA Auto SS XR Chest Single Viewon 12-18 XR Chest Single View Normal [facility] XR Pelvis 1 or 2 Viewson XR Pelvis 1 or 2 Views Normal [facility] eGFRon 12-18-2022 GFR/1.73 sq M.predicted among non-blacks MDRD (S/P/Bld) [Vol rate/Area] 44 mL/min/1.73 m2 Low >=59 [facility] Comment on above: Order Comment: Order added by Discern Expert. 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 Kidney failure is indicated at less than 15 mL/min/1.73m2. Performed By: #### 2 283549, 5403167, 1367438749, 19621484, 77965367 ####[facility] [address] [place] [address] GFR/1.73 sq M.predicted among non-blacks MDRD (S/P/Bld) [Vol rate/Area] 38 mL/min/1.73 m2 Low >=59 [facility] Comment on above: Order Comment: Order added by Discern Expert. 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 Kidney failure is indicated at less than 15 mL/min/1.73m2. Performed By: #### 1 8838725, 0008923, 62578463, 9659527, 39831083, 88893487, 1451520 ####[facility] [address] [place] [address] Capillary Glucose POCon 11-22 Glucose [Mass/Vol] 165 mg/dL High 55- [facility] Comment on above: Result Comment: Yazmin bri Meter Performed By: #### 2 42442947 ####[facility] [address] [place] [address] Glucose [Mass/Vol] 184 mg/dL High 55- [facility] Comment on above: Performed By: #### 2 29468791 ####[facility] [address] [place] [address] Capillary Glucose POCon 11-22 Glucose [Mass/Vol] 184 mg/dL High 55-99 [facility] Comment on above: Result Comment: Yazmin bri Meter Performed By: #### 2 12258665 ####[facility] [address] [place] [address] Glucose [Mass/Vol] 141 mg/dL High 55- [facility] Comment on above: Result Comment: Yazmin bri Meter Performed By: #### 2 25076431 ####[facility] [address] [place] [address] Capillary Glucose POCon 11-22 Glucose [Mass/Vol] 183 mg/dL High 55-99 [facility] Comment on above: Result Comment: Yazmin bri Meter Performed By: #### 2 28401209 ####[facility] [address] [place] [address] Glucose [Mass/Vol] 147 mg/dL High 55-99 [facility] Comment on above: Result Comment: Yazmin bri Meter Performed By: #### 2 76178072 ####[facility] [address] [place] [address] Capillary Glucose POCon 11-22 Glucose [Mass/Vol] 188 mg/dL High 55-99 [facility] Comment on above: Result Comment: Yazmin bri Meter Performed By: #### 2 27596550 ####[facility] [address] [place] [address] Glucose [Mass/Vol] 162 mg/dL High 55- [facility] Comment on above: Result Comment: Yazmin bri Meter Performed By: #### 2 24263613 ####[facility] [address] [place] [address] Auto Diffon 12-13-2022 Basophils/100 WBC (Bld) 0.0 % Normal 0.0-2.0 [facility] Comment on above: Order Comment: Order Added by Discern Expert. Performed By: #### 1 6397094, 0050334, 824621366, 9193846, 7590855 ####[address] [address] Basophils/Leukocytes Auto (Bld) [Pure # fraction] 0.0 E9/L Normal 0.0-0.2 [facility] Comment on above: Order Comment: Order Added by Discern Expert. Performed By: #### 1 8731309, 0413261, 954288004, 8752608, 2781544 ####[place] [place] [address] Eosinophils/100 WBC (Bld) 7.6 % Normal 0.0-8.0 [facility] Comment on above: Order Comment: Order Added by Discern Expert. Performed By: #### 1 6346229, 2940670, 648343202, 1842641, 8452459 ####[address] [place] [address] Eosinophils/Leukocytes Auto (Bld) [Pure # fraction] 1.0 E9/L High 0.0-0.5 [facility] Comment on above: Order Comment: Order Added by Discern Expert. Performed By: #### 1 9028892, 0413217, 385163417, 5023158, 2080786 ####[address] [address] Lymphocytes/100 WBC (Bld) 10.3 % Low 14.0-50.0 [facility] Comment on above: Order Comment: Order Added by Discern Expert. Performed By: #### 1 0272700, 8228502, 016516728, 2746575, 2081990 ####[address] [address] Lymphocytes/Leukocytes Auto (Bld) [Pure # fraction] 1.3 E9/L Normal 1.0-4.0 [facility] Comment on above: Order Comment: Order Added by Discern Expert. Performed By: #### 1 4575761, 8557816, 807007970, 8460397, 4922000 ####[address] [address] Monocytes/100 WBC (Bld) 9.6 % Normal 4.0-14.0 [facility] Comment on above: Order Comment: Order Added by Discern Expert. Performed By: #### 1 4388633, 5281545, 981937946, 4582075, 4174223 ####[address] [place] [address] Monocytes/Leukocytes Auto (Bld) [Pure # fraction] 1.2 E9/L High 0.2-1.0 [facility] Comment on above: Order Comment: Order Added by Discern Expert. Performed By: #### 1 0397552, 4846447, 422025835, 0555843, 7116317 ####[address] [address] Neutrophils/100 WBC (Bld) 72.5 % Normal 36.0-75.0 [facility] Comment on above: Order Comment: Order Added by Discern Expert. Performed By: #### 1 7277903, 9741236, 603452706, 7943036, 6176790 ####[address] [place] [address] Neutrophils/Leukocytes Auto (Bld) [Pure # fraction] 9.0 E9/L High 2.0-7.5 [facility] Comment on above: Order Comment: Order Added by Discern Expert. Performed By: #### 1 3542370, 7912601, 822193161, 3598647, 1017473 ####[address] [address] CBC w/ Auto Diffon Erythrocyte distribution width (RBC) [Ratio] 15.0 % High 10.9-14.2 [facility] Comment on above: Performed By: #### 1 3940078, 7429645, 925065591, 0031811, 4226047 ####[address] [address] Hematocrit (Bld) [Volume fraction] 45.2 % Normal 37.7-49.0 [facility] Comment on above: Performed By: #### 1 2541346, 8561680, 967531957, 1721329, 6149517 ####[address] [place] [address] Hemoglobin (Bld) [Mass/Vol] 14.8 g/dL Normal 13.5-17.5 [facility] Comment on above: Performed By: #### 1 4557671, 4199014, 194934463, 8689786, 4914947 ####[address] [place] [address] MCH (RBC) [Entitic mass] 27.8 pg Normal 27.0-34.0 [facility] Comment on above: Performed By: #### 1 4782413, 9529661, 079752735, 3237818, 4270641 ####[facility] [address] [place] [address] MCHC (RBC) [Mass/Vol] 32.7 g/dL Normal 31.4-36.0 [facility] Comment on above: Performed By: #### 1 0638063, 2969641, 676346377, 4272882, 1919055 ####[address] [address] MCV (RBC) [Entitic vol] 85.0 fL Normal 80.0-100.0 [facility] Comment on above: Performed By: #### 1 5279743, 0114572, 241612840, 5862122, 6391106 ####[address] [address] Platelet mean volume (Bld) [Entitic vol] 9.4 fL Normal 6.4-10.8 [facility] Comment on above: Performed By: #### 1 9480083, 0313069, 239640657, 5499262, 5336318 ####[address] [address] Platelets (Bld) [#/Vol] 193.0 E9/L Normal 150.0-500.0 [facility] Comment on above: Performed By: #### 1 7655953, 4336979, 773330566, 8158070, 8413311 ####[address] [address] RBC (Bld) [#/Vol] 5.3 E12/L Normal 4.3-5.9 [facility] Comment on above: Performed By: #### 1 1326279, 2574748, 524023449, 5240059, 4173158 ####[address] [address] WBC corrected for nucl RBC Auto (Bld) [#/Vol] 12.5 E9/L High 4.0-11.0 [facility] Comment on above: Performed By: #### 1 7150188, 5524862, 476264189, 1310350, 3219887 ####[facility] [address] [place] [address] CMPon 12-13-2022 Albumin [Mass/Vol] 3.6 g/dL Normal 3.3-5.0 [facility] Comment on above: Performed By: #### 1 1792406, 2526105, 923609320, 9561863, 5552445 ####[address] [place] [address] Albumin/Globulin (S) [Mass conc ratio] 1.0 Low 1.1-2.2 [facility] Comment on above: Performed By: #### 1 4024010, 6687273, 643176605, 8178339, 7186359 ####[address] [place] [address] ALP [Catalytic activity/Vol] 49 Int._Unit/L Normal 21-98 [facility] Comment on above: Performed By: #### 1 5109921, 3405456, 327705864, 6878017, 7277973 ####[facility] [address] [place] [address] ALT No additional P-5'-P [Catalytic activity/Vol] 21 Int._Unit/L Normal 6-46 [facility] Comment on above: Performed By: #### 1 2784742, 1428326, 756837687, 3810246, 2918037 ####[address] [place] [address] Anion gap [Moles/Vol] 16 mmol/L Normal 6-16 [facility] Comment on above: Performed By: #### 1 2374625, 5264916, 750053178, 4260641, 1803993 ####[facility] [address] [place] [address] AST [Catalytic activity/Vol] 21 Int._Unit/L Normal 5-43 [facility] Comment on above: Performed By: #### 1 0485264, 3831200, 410337842, 7076162, 2197440 ####[facility] [address] [address] Bilirubin [Mass/Vol] 0.6 mg/dL Normal 0.0-1.1 [facility] Comment on above: Performed By: #### 1 1962446, 3374833, 571320700, 7787965, 2899047 ####[facility] [address] [place] [address] Calcium [Mass/Vol] 9.4 mg/dL Normal 8.9-11.1 [facility] Comment on above: Performed By: #### 1 8133081, 7464669, 833231848, 7521034, 4678114 ####[facility] [address] [place] [address] Chloride [Moles/Vol] 99 mmol/L Low 101-111 [facility] Comment on above: Performed By: #### 1 8202242, 7050977, 298352323, 3761878, 0494010 ####[facility] [address] [place] [address] CO2 [Moles/Vol] 31 mmol/L Normal 21-31 [facility] Comment on above: Performed By: #### 1 9835750, 2294647, 412014180, 5172510, 7959193 ####[facility] [address] [place] [address] Creatinine [Mass/Vol] 1.5 mg/dL High 0.5-1.3 [facility] Comment on above: Performed By: #### 1 4697382, 9233467, 921973964, 3998096, 4938608 ####[facility] [address] [place] [address] Globulin (S) [Mass/Vol] 3.7 g/dL Normal 1.4-4.0 [facility] Comment on above: Performed By: #### 1 8908076, 8991115, 232017025, 2646806, 7236668 ####[facility] [address] [place] [address] Glucose [Mass/Vol] 128 mg/dL Normal 55-199 [facility] Comment on above: Result Comment: If t his glucose result represents a fasting glucose, interpretation should refer to the following reference range: 55-99 mg/dL Performed By: #### 1 9128666, 7727087, 085535500, 9935066, 3919903 ####[facility] [address] [place] [address] Potassium [Moles/Vol] 4.1 mmol/L Normal 3.5-5.3 [facility] Comment on above: Performed By: #### 1 6474525, 5334927, 451239941, 2384262, 9702834 ####[facility] [address] [place] [address] Protein [Mass/Vol] 7.3 g/dL Normal 6.0-7.8 [facility] Comment on above: Performed By: #### 1 5456903, 3458482, 743367948, 2593059, 5066451 ####[facility] [address] [place] [address] Sodium [Moles/Vol] 142 mmol/L Normal 135-145 [facility] Comment on above: Performed By: #### 1 3712472, 0808670, 345843279, 8644347, 1067389 ####[facility] [address] [place] [address] Urea nitrogen [Mass/Vol] 57 mg/dL High 5-21 [facility] Comment on above: Performed By: #### 1 7345432, 1715227, 703904671, 7219659, 7954694 ####[facility] [address] [place] [address] Urea nitrogen/Creatinine [Mass ratio] 38 No Units High 10-20 [facility] Comment on above: Performed By: #### 1 8700579, 0137722, 896857416, 7633337, 6107001 ####[facility] [address] [place] [address] Capillary Glucose POCon 07-2 Glucose [Mass/Vol] 256 mg/dL High 55 [facility] Comment on above: Result Comment: Yazmin bri Meter Performed By: #### 2 29649550 ####[facility] [address] [place] [address] Glucose [Mass/Vol] 152 mg/dL High [facility] Comment on above: Result Comment: Yazmin bri Meter Performed By: #### 2 74202723 ####[facility] [address] [place] [address] KnnY0vlb 12-13-2022 HbA1c (Bld) [Mass fraction] 6.5 % High <=5.9 [facility] Comment on above: Performed By: #### 1 0498362, 5786421, 403440936, 0349799, 0032960 ####[facility] [address] [place] [address] eGFRon 12-13-2022 GFR/1.73 sq M.predicted among non-blacks MDRD (S/P/Bld) [Vol rate/Area] 47 mL/min/1.73 m2 Low >=59 [facility] Comment on above: Order Comment: Order added by Discern Expert. 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 Kidney failure is indicated at less than 15 mL/min/1.73m2. Performed By: #### 1 3757067, 7702452, 829708391, 4900958, 8169199 ####[facility] [address] [place] [address] Capillary Glucose POCon 11-22 Glucose [Mass/Vol] 212 mg/dL High 55- [facility] Comment on above: Result Comment: Yazmin bri Meter Performed By: #### 2 97483635 ####[facility] [address] [place] [address] Glucose [Mass/Vol] 161 mg/dL High 55- [facility] Comment on above: Result Comment: Yazmin bri Meter Performed By: #### 2 93303913 ####[facility] [address] [place] [address] Capillary Glucose POCon 11-22 Glucose [Mass/Vol] 206 mg/dL [address] Comment on above: Result Comment: Yazmin bri Meter Performed By: #### 2 93553504 ####[facility] [address] [place] [address] Glucose [Mass/Vol] 152 mg/dL [address] Comment on above: Result Comment: Yazmin bri Meter Performed By: #### 2 59602630 ####[facility] [address] [place] [address] Capillary Glucose POCon 11-22 Glucose [Mass/Vol] 140 mg/dL [address] Comment on above: Result Comment: Yazmin bri Meter Performed By: #### 2 50155828 ####[facility] [address] [place] [address] Capillary Glucose POCon 11-21 Glucose [Mass/Vol] 243 mg/dL [address] Comment on above: Result Comment: Yazmin bri Meter Performed By: #### 2 10122155 ####[facility] [address]um[address] [place] [address] Glucose [Mass/Vol] 157 mg/dL [address] Comment on above: Result Comment: Yazmin bri Meter Performed By: #### 2 67997176 ####[facility] [address] [place] [address] Capillary Glucose POCon 11-21 Glucose [Mass/Vol] 181 mg/dL [address] Comment on above: Result Comment: Yazmin bri Meter Performed By: #### 2 89150206 ####[facility] [address] [facility] [place] [address] Capillary Glucose POCon 11-21 Glucose [Mass/Vol] 149 mg/dL [address] Comment on above: Result Comment: Yazmin bri Meter Performed By: #### 2 60920986 ####[facility] [address] [place] [address] Glucose [Mass/Vol] 164 mg/dL [address] Comment on above: Result Comment: Yazmin bri Meter Performed By: #### 2 95532063 ####[facility] [address] [place] [address] Capillary Glucose POCon 11-21 Glucose [Mass/Vol] 265 mg/dL High [address] [place] [address] Comment on above: Result Comment: Yazmin bri Meter Performed By: #### 2 77405160 ####[facility] Hz[address]fd[address] [facility] [place] [address] Glucose [Mass/Vol] 129 mg/dL [address] Comment on above: Result Comment: Yazmin bri Meter Performed By: #### 2 43922520 ####[facility] [address] [place] [address] Family Medicine Office/Clini c Noteon 12-06-2022 Family Medicine Office/Clinic Note Normal [facility] Comment on above: Result Comment: Elec tronically Signed By: SHAISTA POTTS, Donta\.br\Date and Time Signed: 12/06/22 21:11 EDT Capillary Glucose POCon 11-21 Glucose [Mass/Vol] 196 mg/dL [address] Comment on above: Result Comment: Yazmin bri Meter Performed By: #### 2 38475608 ####[facility] [address] [place] [address] Glucose [Mass/Vol] 159 mg/dL [address] Comment on above: Result Comment: Yazmin bri Meter Performed By: #### 2 22471328 ####[facility] [address] [place] [address] Capillary Glucose POCon 11-21 Glucose [Mass/Vol] 195 mg/dL [address] Comment on above: Result Comment: Gareth GARDINER Performed By: #### 2 09337373 ####[facility] [address] [place] [address] Insurance Correspondence Off iceon 12-04-2022 Insurance Correspondence Office [id number]#1. 00CD:127 Normal [facility] Physician Orderon 12-03-2022 Physician Order [id number]#1. 00CD:127 Normal [facility] CHEMISTRYOrdered By: Lab ROP User on 12-02-2022 Glucose [Mass/Vol] 227 mg/dL High 55 - 99 mg/dL [facility] Subsection Comment on above: Result Comment: Gareth GARDINER POC Device SN [id number] Invalid Interpretation Code FT POC Subsection POC User ID [id number] Invalid Interpretation Code [facility] Subsection POC Username KINGSTON JAMISON Invalid Interpretation Code [facility] Subsection Glucose [Mass/Vol] 127 mg/dL High 55 - 99 mg/dL [facility] Subsection Comment on above: Result Comment: Gareth GARDINER POC Device SN [id number] Invalid Interpretation Code FT POC Subsection POC User ID [id number] Invalid Interpretation Code [facility] Subsection POC Username TOYIN REYNOLDS Invalid Interpretation Code [facility] Subsection Capillary Glucose POCon 11-21 Glucose [Mass/Vol] 227 mg/dL High 55-99 [facility] Comment on above: Result Comment: Gareth GARDINER Performed By: #### 2 06190162 ####[facility] [address] [place] [address] Glucose [Mass/Vol] 127 mg/dL High 55-99 [facility] Comment on above: Result Comment: Gareth GARDINER Performed By: #### 2 34892892 ####[facility] [address] [place] [address] Coding Queryon 12-02-2022 Coding Query Normal [facility] Discharge Note-Nursingon Discharge Note-Nursing Normal [facility] Inpatient Clinical Summaryon 12-02-2022 Inpatient Clinical Summary Normal [facility] Inpatient Patient Summaryon 12-02-2022 Inpatient Patient Summary Normal [facility] Insurance Correspondence Off iceon 12-02-2022 Insurance Correspondence Office [id number]#1.00 CD:127 Normal [facility] Interdisciplinary Note - Santosh e Manageron 12-02-2022 Interdisciplinary Note - [place] Out [place] Comment on above: Result Comment: Elec tronically Signed By: Dank HAYDEN, Lisa\.br\Date and Time Signed: 12/02/22 09:31 EDT Monitor Recordon 12-02-2022 Monitor Record [id number]#1. 00CD:127 Normal [facility] Physician Orderon 12-02-2022 Physician Order [id number]#1. 00CD:127 Normal [facility] Progress Note-Physicianon Progress Note-Physician [facility] Comment on above: Result Comment: Elec tronically Signed By: Adeline COLEMAN\.br\Date and Time Signed: 12/01/22 18:43 EDT\.br\Electronically Co-Signed By: Juan Hdz DO\.br\Date and Time Co-Signed: 12/02/22 07:20 EDT Transfer Documentson 023 Transfer Documents [id number]#1. 00CD:127 Normal [facility] BMPon 12-01-2022 Anion gap [Moles/Vol] 13 mmol/L Normal 6-16 [facility] Comment on above: Performed By: #### 1 9489544, 3048701, 1928539, 1385331 ####[facility] [address] [place] [address] Calcium [Mass/Vol] 9.1 mg/dL Normal 8.9-11.1 [facility] Comment on above: Performed By: #### 1 2851226, 2506481, 0243078, 1737848 ####[facility] [address] [place] [address] Chloride [Moles/Vol] 102 mmol/L Normal 101-111 [facility] Comment on above: Performed By: #### 1 6028467, 4725006, 6072145, 0408635 ####[facility] [address] [place] [address] CO2 [Moles/Vol] 28 mmol/L Normal 21-31 [facility] Comment on above: Performed By: #### 1 8855174, 7979341, 2604146, 9908038 ####[facility] [address] [place] [address] Creatinine [Mass/Vol] 1.3 mg/dL Normal 0.5-1.3 [facility] Comment on above: Performed By: #### 1 1997666, 5166310, 9151592, 9080662 ####[facility] [address] [place] [address] Glucose [Mass/Vol] 97 mg/dL Normal 55-199 [facility] Comment on above: Result Comment: If t his glucose result represents a fasting glucose, interpretation should refer to the following reference range: 55-99 mg/dL Performed By: #### 1 6676803, 1920995, 1423520, 2919269 ####[facility] [address] [place] [address] Potassium [Moles/Vol] 4.6 mmol/L Normal 3.5-5.3 [facility] Comment on above: Performed By: #### 1 2953002, 3993118, 2307759, 9425425 ####[facility] [address] [place] [address] Sodium [Moles/Vol] 138 mmol/L Normal 135-145 [facility] Comment on above: Performed By: #### 1 7188539, 1069891, 6023602, 9119661 ####[facility] [address] [place] [address] Urea nitrogen [Mass/Vol] 24 mg/dL High 5-21 [facility] Comment on above: Performed By: #### 1 6744427, 4566416, 4195261, 7097699 ####[facility] [address] [place] [address] Urea nitrogen/Creatinine [Mass ratio] 18 No Units Normal 10-20 [facility] Comment on above: Performed By: #### 1 1165173, 6210548, 4819380, 4640951 ####[facility] [address] [place] [address] CHEMISTRYOrdered By: Lab ROP User on 12-01-2022 Glucose [Mass/Vol] 114 mg/dL High 55 - 99 mg/dL [facility] P[facility] Subsection Comment on above: Result Comment: Gareth guerrero RN/ POC Device SN [id number] Invalid Interpretation Code [facility] P[facility] Subsection POC User ID [id number] Invalid Interpretation Code [facility] P[facility] Subsection POC Username NETO CHEEK Invalid Interpretation Code [facility] P[facility] Subsection CHEMISTRYOrdered By: SYSTEM SYSTEM on 12-01-2022 Anion gap [Moles/Vol] 13 mmol/L Normal 6 - 16 mEq/L [facility] Remisol Calcium [Mass/Vol] 9.1 mg/dL Normal 8.9 - 11. 1 mg/dL FT [facility] Chloride [Moles/Vol] 102 mmol/L Normal 101 - 1 11 mmol/L FT Remisol CK [Catalytic activity/Vol] 211 [iU]/d Normal 14 - 261 Int._Unit/L [facility] Remisol CO2 [Moles/Vol] 28 mmol/L Normal 21 - 31 mmol/L [facility] Creatinine [Mass/Vol] 1.3 mg/dL Normal 0.5 - 1.3 mg/dL [facility] Remisol GFR/1.73 sq M.predicted among non-blacks MDRD (S/P/Bld) [Vol rate/Area] 56 mL/min/1.73 m2 Low >=59mL/min/ 1.73 m2 [facility] Chem S Glucose [Mass/Vol] 97 mg/dL Normal 55 - 199 mg/dL [facility] Magnesium [Mass/Vol] 2.1 mg/dL Normal 1.3 - 2 .4 mg/dL [facility] Potassium [Moles/Vol] 4.6 mmol/L Normal 3.5 - 5.3 mmol/L [facility] Remisol Sodium [Moles/Vol] 138 mmol/L Normal 135 - 145 mmol/L [facility] Remisol Urea nitrogen [Mass/Vol] 24 mg/dL High 5 - 21 mg/dL [facility] Remisol Urea nitrogen/Creatinine [Mass ratio] 18 mg/mg Normal 10 - 20 [facility] Remisol CKon 12-01-2022 CK [Catalytic activity/Vol] 211 Int._Unit/L Normal 14-261 [facility] Comment on above: Performed By: #### 1 [id number], 9892261, 4364896, 7437591 ####[facility] [address] [place] [address] Capillary Glucose POCon 11-21 Glucose [Mass/Vol] 114 mg/dL High 55-99 [facility] Comment on above: Result Comment: Gareth GARDINER Performed By: #### 2 [id number] ####[facility] [address] [place] [address] Glucose [Mass/Vol] 193 mg/dL High 55-99 [facility] Comment on above: Result Comment: Gareth GARDINER Performed By: #### 2 [id number] ####[facility] [address] [place] [address] Glucose [Mass/Vol] 203 mg/dL High 55-99 [facility] Comment on above: Result Comment: Gareth GARDINER Performed By: #### 2 [id number] ####[facility] [address] [place] [address] Glucose [Mass/Vol] 110 mg/dL High 55-99 [facility] Comment on above: Result Comment: Gareth GARDINER Performed By: #### 2 [id number] ####[facility] [address] [place] [address] Interdisciplinary Note - Santosh e Manageron 12-01-2022 Interdisciplinary Note - Shanker Out Pt is asleep in bed, no family present. Pt is accepted to [facility] side, pending precert at this time. Contact information provided and white board updated, CRM following Normal [facility] Comment on above: Result Comment: Elec tronically Signed By: Dank HAYDEN, Lisa\.br\Date and Time Signed: 12/01/22 08:20 EDT Ionized Calciumon 12-01-2022 Calcium.ionized ISE [Mass/Vol] 4.8 mg/dL Invalid Interpretation Code 4.5-5.6 [facility] Comment on above: Result Comment: Perf ormed at: [facility] [address] [place], [place] [id number] PhD Michael Cortes Performed By: #### 2 226860, 3494754, 2698956, 95747033, 20134300, 8497209, 06975851, 1747692, 18674688, 913243477, 4897596, 7334932 ####[facility] [address] [place] [address] Magnesiumon 12-01-2022 Magnesium [Mass/Vol] 2.1 mg/dL Normal 1.3-2.4 [facility] Comment on above: Performed By: #### 1 2775901, 0388938, 6614339, 8429043 ####[facility] [address] [place] [address] Progress Note-Physicianon Progress Note-Physician Normal [facility] Comment on above: Result Comment: Elec tronically Signed By: Pao POTTS, Lizeth\.br\Date and Time Signed: 12/01/22 12:41 EDT XR Abdomen 1 Viewon 12-02-19 23 XR Abdomen 1 View Normal [facility] eGFRon 12-01-2022 GFR/1.73 sq M.predicted among non-blacks MDRD (S/P/Bld) [Vol rate/Area] 56 mL/min/1.73 m2 Low >=59 [facility] Comment on above: Order Comment: Order added by Discern Expert. 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 Kidney failure is indicated at less than 15 mL/min/1.73m2. Performed By: #### 1 5792375, 3636799, 2729731, 1570143 ####[facility] [address] [place] [address] BMPon 11-30-2022 Anion gap [Moles/Vol] 11 mmol/L Normal 6-16 [facility] Comment on above: Performed By: #### 2 111339, 6745835, 68313239 ####[facility] [address] [place] [address] Calcium [Mass/Vol] 9.0 mg/dL Normal 8.9-11.1 [facility] Comment on above: Performed By: #### 2 409706, 5587487, 37226605 ####[facility] [address] [facility]Nor[facility] [place] [address] Chloride [Moles/Vol] 102 mmol/L Normal 101-111 [facility] Comment on above: Performed By: #### 2 663057, 1162974, 73626880 ####[facility] [address] [place] [address] CO2 [Moles/Vol] 31 mmol/L Normal 21-31 [facility] Comment on above: Performed By: #### 2 671973, 4457302, 47847272 ####[facility] [address] [place] [address] Creatinine [Mass/Vol] 1.1 mg/dL Normal 0.5-1.3 [facility] Comment on above: Performed By: #### 2 365369, 7717138, 52352822 ####[facility] [address] [place] [address] Glucose [Mass/Vol] 114 mg/dL Normal 55-199 [facility] Comment on above: Result Comment: If t his glucose result represents a fasting glucose, interpretation should refer to the following reference range: 55-99 mg/dL Performed By: #### 2 307666, 3260226, 67740157 ####[facility] [address] [place] [address] Potassium [Moles/Vol] 3.4 mmol/L Low 3.5-5.3 [facility] Comment on above: Performed By: #### 2 962858, 1118525, 10908120 ####[facility] [address] [place] [address] Sodium [Moles/Vol] 141 mmol/L Normal 135-145 [facility] Comment on above: Performed By: #### 2 344739, 4525850, 26041277 ####[facility] [address] [place] [address] Urea nitrogen [Mass/Vol] 23 mg/dL High 5-21 [facility] Comment on above: Performed By: #### 2 610702, 4198085, 21624190 ####[facility] [address] [place] [address] Urea nitrogen/Creatinine [Mass ratio] 21 No Units High 10-20 [facility] Comment on above: Performed By: #### 2 048231, 9273701, 05612887 ####[facility] [address] [place] [address] CHEMISTRYOrdered By: SYSTEM SYSTEM on 11-30-2022 Anion gap [Moles/Vol] 11 mmol/L Normal 6 - 16 mEq/L [facility] Remisol Calcium [Mass/Vol] 9.0 mg/dL Normal 8.9 - 11. 1 mg/dL [facility] Remisol Chloride [Moles/Vol] 102 mmol/L Normal 101 - 1 11 mmol/L [facility] Remisol CO2 [Moles/Vol] 31 mmol/L Normal 21 - 31 mmol/L [facility] Remisol Creatinine [Mass/Vol] 1.1 mg/dL Normal 0.5 - 1.3 mg/dL [facility] Remisol GFR/1.73 sq M.predicted among non-blacks MDRD (S/P/Bld) [Vol rate/Area] 69 mL/min/1.73 m2 Normal >=59mL/min/ 1.73 m2 [facility] Chem S Glucose [Mass/Vol] 114 mg/dL Normal 55 - 199 mg/dL [facility] Remisol Magnesium [Mass/Vol] 1.8 mg/dL Normal 1.3 - 2 .4 mg/dL [facility] Remisol Potassium [Moles/Vol] 3.4 mmol/L Low 3.5 - 5.3 mmol/L [facility] Remisol Sodium [Moles/Vol] 141 mmol/L Normal 135 - 145 mmol/L [facility] Remisol Urea nitrogen [Mass/Vol] 23 mg/dL High 5 - 21 mg/dL [facility] Remisol Urea nitrogen/Creatinine [Mass ratio] 21 mg/mg High 10 - 20 [facility] Remisol Capillary Glucose POCon 11-21 Glucose [Mass/Vol] 194 mg/dL High 55-99 [facility] Comment on above: Result Comment: Gareth GARDINER Performed By: #### 2 [id number] ####[facility] [address] [place] [address] Glucose [Mass/Vol] 96 mg/dL Normal 55-99 [facility] Comment on above: Performed By: #### 2 [id number] ####[facility] [address] [place] [address] Glucose [Mass/Vol] 130 mg/dL High 55-99 [facility] Comment on above: Result Comment: Gareth GARDINER Performed By: #### 2 35124188 ####[facility] [address] [place] [address] Glucose [Mass/Vol] 113 mg/dL High 55-99 [facility] Comment on above: Result Comment: Gareth GARDINER Performed By: #### 2 79887332 ####[facility] [address] [place] [address] Echo Transthoracic Completeo n 11-30-2022 Echo Transthoracic Complete Normal [facility] Insurance Correspondence Off iceon 11-30-2022 Insurance Correspondence Office [id number]#1.0 0CD:127 Normal [facility] Interdisciplinary Note - Santosh e Manageron 11-30-2022 Interdisciplinary Note - Shanker Out Normal [facility] Comment on above: Result Comment: Elec tronically Signed By: Dank HAYDEN, Lisa\.br\Date and Time Signed: 11/30/22 10:48 EDT Magnesiumon 11-30-2022 Magnesium [Mass/Vol] 1.8 mg/dL Normal 1.3-2.4 [facility] Comment on above: Performed By: #### 2 555231, 1023737, 73042187 ####[facility] [address] [place] [address] Message from Medicareon 11-21 Message from Medicare [id number]#1.0 0CD:127 Normal [facility] Progress Note-Physicianon Progress Note-Physician Normal [facility] Comment on above: Result Comment: Elec tronically Signed By: Joanie Jiménez MD\.br\Date and Time Signed: 11/30/22 15:13 EDT Progress Note-Physician Normal [facility] Comment on above: Result Comment: Elec tronically Signed By: Lizeth Cedeno MD\.br\Date and Time Signed: 11/30/22 14:52 EDT UA With Cult Reflexon 2022 Bacteria LM Ql (Urine sed) TRACE Normal Trace [facility] Comment on above: Order Comment: Urina ry Catheter Insertion triggered Urinalysis With Culture Reflex order by discern. Performed By: #### 1 0510696 ####[facility] [address] [place] [address] Bilirubin Ql (U) Negative Normal Negative [facility] Comment on above: Order Comment: Urina ry Catheter Insertion triggered Urinalysis With Culture Reflex order by discern. Performed By: #### 1 3822592 ####[facility] [address] [place] [address] Clarity (U) CLEAR Normal Clear [facility] Comment on above: Order Comment: Urina ry Catheter Insertion triggered Urinalysis With Culture Reflex order by discern. Performed By: #### 1 2984193 ####[facility] [address] [place] [address] Color (U) YELLOW Normal Yellow [facility] Comment on above: Order Comment: Urina ry Catheter Insertion triggered Urinalysis With Culture Reflex order by discern. Performed By: #### 1 2819533 ####[facility] [address] [place] [address] Epithelial cells.squamous LM.HPF (Urine sed) [#/Area] 0-2 Normal 0-2 [facility] Comment on above: Order Comment: Urina ry Catheter Insertion triggered Urinalysis With Culture Reflex order by discern. Performed By: #### 1 4186732 ####[facility] [address] [place] [address] Glucose Test strip (U) [Mass/Vol] Negative Normal Negative [facility] Comment on above: Order Comment: Urina ry Catheter Insertion triggered Urinalysis With Culture Reflex order by discern. Performed By: #### 1 3689287 ####[address] [address] Hemoglobin Ql (U) Negative Normal Negative [facility] Comment on above: Order Comment: Urina ry Catheter Insertion triggered Urinalysis With Culture Reflex order by discern. Performed By: #### 1 4401488 ####[address] [address] Ketones (U) [Mass/Vol] Negative Normal Negative [facility] Comment on above: Order Comment: Urina ry Catheter Insertion triggered Urinalysis With Culture Reflex order by discern. Performed By: #### 1 6556017 ####[address] [address] Florence-Graham.plasma/Florence-Graham.R BC (Bld) [Mass ratio] 0-3 Normal 0-3 [facility] Comment on above: Order Comment: Urina ry Catheter Insertion triggered Urinalysis With Culture Reflex order by discern. Performed By: #### 1 2310442 ####[facility] [address] [place] [address] Nitrite Ql (U) Negative Normal Negative [facility] Comment on above: Order Comment: Urina ry Catheter Insertion triggered Urinalysis With Culture Reflex order by discern. Performed By: #### 1 1524623 ####[address] [place] [address] pH (U) 6.0 [pH] Invalid Interpretation Code 5.0-9.0 [facility] Comment on above: Order Comment: Urina ry Catheter Insertion triggered Urinalysis With Culture Reflex order by discern. Performed By: #### 1 6836079 ####[address] [address] Protein (U) [Mass/Vol] Negative Normal Negative [facility] Comment on above: Order Comment: Urina ry Catheter Insertion triggered Urinalysis With Culture Reflex order by discern. Performed By: #### 1 3876576 ####[address] [address] Specific gravity (U) [Rel density] 1.010 Invalid Interpretation Code 1.005-1.030 [facility] Comment on above: Order Comment: Urina ry Catheter Insertion triggered Urinalysis With Culture Reflex order by discern. Performed By: #### 1 8949843 ####[address] [address] Type of Urine collection method Red Normal [facility] Comment on above: Order Comment: Urina ry Catheter Insertion triggered Urinalysis With Culture Reflex order by discern. Performed By: #### 1 2170735 ####[address] [address] Urobilinogen Qn (U) 0.2 {Lei'U}/dL Normal 0.0-1.0 [facility] Comment on above: Order Comment: Urina ry Catheter Insertion triggered Urinalysis With Culture Reflex order by discern. Performed By: #### 1 4090353 ####[address] [address] WBC Auto Ql (U) Negative Normal Negative [facility] Comment on above: Order Comment: Urina ry Catheter Insertion triggered Urinalysis With Culture Reflex order by discern. Performed By: #### 1 3695765 ####[address] [address] WBC casts LM.LPF (Urine sed) [#/Area] 0-3 Normal [facility] Comment on above: Order Comment: Urina ry Catheter Insertion triggered Urinalysis With Culture Reflex order by discern. Performed By: #### 1 7042912 ####[facility] [address] [place] [address] WBC LM.HPF (Urine sed) [#/Area] 0-5 Normal 0-5 [facility] Comment on above: Order Comment: Urina ry Catheter Insertion triggered Urinalysis With Culture Reflex order by discern. Performed By: #### 1 7259608 ####[facility] [address] [place] [address] URINALYSISOrdered By: Houston Castillo on 11-30-2022 Bacteria [...] AM) Normal Negative [facility] UA Auto SS Florence-Graham.plasma/Florence-Graham.R BC (Bld) [Mass ratio] 0-3 /HPF Normal [...] AM) Invalid Interpretation Code 1.005 - 1.030 [facility] UA Auto SS UA Spec Desc Red (11/30/22 11:00 AM) Normal [facility] UA Auto SS Urobilinogen Qn (U) 0.1988331 {Lei'U}/dL Normal 0.0 - 1.0 EU/dL [facility] UA Auto SS WBC Auto Ql (U) Negative (11/30/22 11:00 AM) Normal Negative [facility] UA Auto SS WBC casts LM.LPF (Urine sed) [#/Area] 0-3 (11/30/22 11:00 AM) Normal [facility] UA Auto SS WBC LM.HPF (Urine sed) [#/Area] 0-5 /HPF Normal 0-5/HPF [facility] UA Auto SS eGFRon 11-30-2022 GFR/1.73 sq M.predicted among non-blacks MDRD (S/P/Bld) [Vol rate/Area] 69 mL/min/1.73 m2 Normal >=59 [facility] Comment on above: Order Comment: Order added by Discern Expert. 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 Kidney failure is indicated at less than 15 mL/min/1.73m2. Performed By: #### 2 134227, 8936392, 79836503 ####[facility] [address] [place] [address] Auto Diffon 11-29-2022 Basophils/100 WBC (Bld) 0.5 % Normal 0.0-2.0 [facility] Comment on above: Order Comment: Order Added by Discern Expert. Performed By: #### 2 923459, 6889759, 9409313, 13260840, 18660042, 5727890, 50526606, 7664963, 13324650, 413479234, 0679141, 0961516 ####[facility] [address] [place] [address] Basophils/Leukocytes Auto (Bld) [Pure # fraction] 0.0 E9/L Normal 0.0-0.2 [facility] Comment on above: Order Comment: Order Added by Discern Expert. Performed By: #### 2 682763, 6515061, 5096918, 47637214, 93659408, 8095751, 06964999, 4517902, 90538074, 620152337, 0350586, 3720230 ####[facility] [address] [place] [address] Eosinophils/100 WBC (Bld) 8.4 % High 0.0-8.0 [facility] Comment on above: Order Comment: Order Added by Discern Expert. Performed By: #### 2 375017, 1206040, 2757219, 81609526, 37866596, 4225368, 58744594, 4966489, 15069497, 011561167, 5471096, 0252371 ####[address] [address] Eosinophils/Leukocytes Auto (Bld) [Pure # fraction] 0.6 E9/L High 0.0-0.5 [facility] Comment on above: Order Comment: Order Added by Discern Expert. Performed By: #### 2 246014, 2661860, 1808634, 60652196, 97339846, 2621839, 45442150, 0439417, 12922526, 990053334, 8333177, 2290508 ####[address] [place] [address] Lymphocytes/100 WBC (Bld) 15.8 % Normal 14.0-50.0 [facility] Comment on above: Order Comment: Order Added by Discern Expert. Performed By: #### 2 977255, 3238648, 7455768, 79370972, 76544858, 2952768, 67253790, 6844464, 69187062, 362936159, 7622668, 3814143 ####[address] [place] [address] Lymphocytes/Leukocytes Auto (Bld) [Pure # fraction] 1.2 E9/L Normal 1.0-4.0 [facility] Comment on above: Order Comment: Order Added by Discern Expert. Performed By: #### 2 492011, 8075160, 5659822, 39040804, 85605672, 7531401, 98722458, 3577203, 07895972, 895461852, 1553525, 3061338 ####[facility] [address] [place] [address] Monocytes/100 WBC (Bld) 8.4 % Normal 4.0-14.0 [facility] Comment on above: Order Comment: Order Added by Discern Expert. Performed By: #### 2 370175, 8243345, 5655464, 23960440, 95850575, 6019129, 00072386, 6540352, 05863663, 262845202, 7134532, 2424902 ####[address] [address] Monocytes/Leukocytes Auto (Bld) [Pure # fraction] 0.6 E9/L Normal 0.2-1.0 [facility] Comment on above: Order Comment: Order Added by Discern Expert. Performed By: #### 2 786613, 8584874, 2574888, 38616256, 95782107, 3141041, 46539408, 3369001, 73767983, 687912408, 8618146, 4145940 ####[facility] [address] [place] [address] Neutrophils/100 WBC (Bld) 66.9 % Normal 36.0-75.0 [facility] Comment on above: Order Comment: Order Added by Discern Expert. Performed By: #### 2 144686, 5222377, 3328186, 33558216, 15916266, 4154831, 35810823, 9587678, 38919597, 602675629, 5549840, 9050505 ####[facility] [address] [place] [address] Neutrophils/Leukocytes Auto (Bld) [Pure # fraction] 5.0 E9/L Normal 2.0-7.5 [facility] Comment on above: Order Comment: Order Added by Discern Expert. Performed By: #### 2 429737, 4345384, 0208131, 86059024, 71481653, 9337115, 48243214, 5564722, 34405938, 827656900, 1776744, 9619282 ####[facility] [address] [place] [address] BMPon 11-29-2022 Anion gap [Moles/Vol] 13 mmol/L Normal 6-16 [facility] Comment on above: Performed By: #### 2 012857, 0821944, 2911136, 44471521, 62818936, 2090243, 70430244, 5018900, 98487005, 737148709, 9898842, 4065057 ####[facility] [address] [place] [address] Calcium [Mass/Vol] 9.1 mg/dL Normal 8.9-11.1 [facility] Comment on above: Performed By: #### 2 171008, 9474596, 0250454, 46890310, 26042862, 1888050, 81166273, 6567551, 41520690, 284818025, 6829651, 8134324 ####[facility] [address] [place] [address] Chloride [Moles/Vol] 102 mmol/L Normal 101-111 [facility] Comment on above: Performed By: #### 2 246915, 4693612, 4191340, 06300912, 16283285, 9314205, 92215028, 5560692, 96403193, 713427110, 2300284, 4585895 ####[facility] [address] [place] [address] CO2 [Moles/Vol] 29 mmol/L Normal 21-31 [facility] Comment on above: Performed By: #### 2 610125, 4734880, 9608318, 39360077, 05716851, 9763297, 38118099, 4542238, 13466045, 104278383, 8901321, 6192320 ####[facility] [address] [place] [address] Creatinine [Mass/Vol] 1.1 mg/dL Normal 0.5-1.3 [facility] Comment on above: Performed By: #### 2 979473, 3733435, 6652238, 71474328, 80284494, 4114078, 06822043, 9256491, 25703466, 994496245, 8975135, 4506797 ####[facility] [address] [place] [address] Glucose [Mass/Vol] 95 mg/dL Normal 55-199 [facility] Comment on above: Result Comment: If t his glucose result represents a fasting glucose, interpretation should refer to the following reference range: 55-99 mg/dL Performed By: #### 2 088643, 5216072, 6634724, 72597372, 03341367, 9933608, 95329831, 0176142, 30942328, 317921613, 5134914, 7826990 ####[facility] [address] [place] [address] Potassium [Moles/Vol] 3.9 mmol/L Normal 3.5-5.3 [facility] Comment on above: Performed By: #### 2 635196, 7743196, 3674306, 38061164, 06006023, 8415055, 56458288, 5286687, 76357576, 757027127, 7975179, 4910675 ####[facility] [address] [place] [address] Sodium [Moles/Vol] 140 mmol/L Normal 135-145 [facility] Comment on above: Performed By: #### 2 117654, 8777024, 2576007, 60244419, 12260900, 8445563, 33987887, 3272029, 28864106, 322305175, 5099746, 6934280 ####[facility] [address] [place] [address] Urea nitrogen [Mass/Vol] 16 mg/dL Normal 5-21 [facility] Comment on above: Performed By: #### 2 610124, 3313589, 6188820, 39823964, 90861080, 5310082, 17793103, 8061278, 90108721, 452361400, 6201856, 2522266 ####[facility] [address] [place] [address] Urea nitrogen/Creatinine [Mass ratio] 14 No Units Normal 10-20 [facility] Comment on above: Performed By: #### 2 446909, 8761943, 1233011, 48024028, 74608605, 2009892, 60840825, 4511109, 37897183, 724372353, 6708611, 1444944 ####[facility] [address] [place] [address] BNPon 11-29-2022 Natriuretic peptide B (Bld) [Mass/Vol] 855 pg/mL High 5-80 [facility] Comment on above: Performed By: #### 2 597300, 1554378, 2537239, 36370152, 38529307, 1455071, 11459503, 7662310, 51498729, 331361195, 6688359, 6340330 ####[facility] [address] [place] [address] CBC w/ Auto Diffon 3 Erythrocyte distribution width (RBC) [Ratio] 14.9 % High 10.9-14.2 [facility] Comment on above: Performed By: #### 2 537254, 8404357, 2603587, 03727786, 77735798, 2679657, 39562822, 2841860, 99592320, 500839610, 3134079, 2481403 ####[facility] [address] [place] [address] Hematocrit (Bld) [Volume fraction] 38.1 % Normal 37.7-49.0 [facility] Comment on above: Performed By: #### 2 930783, 4239200, 4765393, 88763545, 46905075, 4871893, 68149250, 2955932, 27210291, 157032154, 6852207, 5354773 ####[facility] [address] [place] [address] Hemoglobin (Bld) [Mass/Vol] 12.8 g/dL Low 13.5-17.5 [facility] Comment on above: Performed By: #### 2 830733, 4878328, 5513845, 91111645, 46061037, 0593181, 54302711, 3084282, 44553317, 590616833, 4261986, 5288841 ####[facility] [address] [place] [address] MCH (RBC) [Entitic mass] 29.0 pg Normal 27.0-34.0 [facility] Comment on above: Performed By: #### 2 843722, 6332737, 3797778, 86624213, 14197068, 9030925, 50447377, 5561993, 98825716, 224987947, 1967534, 5847380 ####[address] [address] MCHC (RBC) [Mass/Vol] 33.7 g/dL Normal 31.4-36.0 [facility] Comment on above: Performed By: #### 2 631518, 9779920, 9455872, 67368605, 67900850, 7099962, 05894555, 8483445, 18174401, 797630695, 4265670, 6984409 ####[facility] [address] [place] [address] MCV (RBC) [Entitic vol] 86.1 fL Normal 80.0-100.0 [facility] Comment on above: Performed By: #### 2 588196, 1825986, 8213850, 80385438, 65054450, 3647829, 36003752, 0438825, 29776069, 910177392, 7383408, 5575162 ####[facility] [address] [place] [address] Platelet mean volume (Bld) [Entitic vol] 10.9 fL High 6.4-10.8 [facility] Comment on above: Performed By: #### 2 432703, 6849491, 7609477, 58121000, 95823241, 3873811, 58987118, 7905444, 09864713, 682813148, 3199711, 5568464 ####[address] [place] [address] Platelets (Bld) [#/Vol] 189.0 E9/L Normal 150.0-500.0 [facility] Comment on above: Performed By: #### 2 051218, 6864501, 3156665, 98443167, 04104350, 9041898, 50938797, 7192081, 58102588, 008100080, 4581937, 9817201 ####[address] [address] RBC (Bld) [#/Vol] 4.4 E12/L Normal 4.3-5.9 [facility] Comment on above: Performed By: #### 2 517167, 2142326, 3917015, 33360320, 91759809, 5965726, 51582896, 6504381, 67441439, 706059501, 4714372, 5756855 ####[address] [place] [address] WBC corrected for nucl RBC Auto (Bld) [#/Vol] 7.4 E9/L Normal 4.0-11.0 [facility] Comment on above: Performed By: #### 2 877296, 0820107, 6206403, 94030337, 31075435, 7456593, 29661269, 9201553, 48592560, 313296879, 3671706, 9421138 ####[address] [address] CHEMISTRYOrdered By: SYSTEM SYSTEM on 11-29-2022 Albumin [...] 29 mmol/L Normal 21 - 31 mmol/L FT Remisol Creatinine [Mass/Vol] 1.1 mg/dL Normal 0.5 - 1.3 mg/dL FT [...] Triglyceride [Mass/Vol] 72 mg/dL Normal <=149mg/dL F [facility] Remisol TSH Qn 3.43 m[IU]/L Normal 0.34 [...] pg/mL High 5 - 80 pg/mL [facility] HemeManSS CHEMISTRYOrdered By: Marian peterson DomainUser on 11-29-2022 Calcium.ionized ISE [Mass/Vol] 4.8 mg/dL Invalid Interpretation Code 4.5-5.6mg/d L [facility] SendOutsSS Comment on above: Result Comment: Perf ormed at: [facility] [place] [address] [place], [place] [id number] PhD Chasejosie Sebastian Thon 11-29-2022 CK [Catalytic activity/Vol] 1096 Int._Unit/L Abnormal 14-261 [facility] Comment on above: Result Comment: Crit ical Result verified by repeat analysis\Critical Result S_CK:[id number] Called to MANAS BARBA AT by AMY JOHNSON and read back for confirmation at 11/29/2022 06:40:15 Performed By: #### 2 432937, 4685931, 9277342, 58901108, 13554712, 5156133, 46389373, 7576345, 88124436, 491258885, 1567599, 8314687 ####[facility] [address] [place] [address] CT Abdomen/Pelvis w/ Contras ton 11-29-2022 CT Abdomen/Pelvis w/ Contrast Normal [facility] CT Head or Brain w/o Contras ton 11-29-2022 CT Head or Brain w/o Contrast Normal [facility] CTA Cheston 11-29-2022 CTA Chest Normal [facility] Capillary Glucose POCon Glucose [Mass/Vol] 122 mg/dL High 55-99 [facility] Comment on above: Result Comment: Gareth GARDINER Performed By: #### 2 [id number] ####[facility] [address] [place] [address] Glucose [Mass/Vol] 174 mg/dL High 55-99 [facility] Comment on above: Performed By: #### 2 06935324 ####[facility] [address] [place] [address] Glucose [Mass/Vol] 107 mg/dL High 55-99 [facility] Comment on above: Result Comment: Gareth GARDINER Performed By: #### 2 [id number] ####[facility] [address] [place] [address] Consultation Noteon 11-30-19 Consultation Note Normal [facility] Comment on above: Result Comment: Elec tronically Signed By: New Velazquez MD\.br\Date and Time Signed: 11/29/22 14:44 EDT ED Clinical Summaryon 2022 ED Clinical Summary Normal Navi faye [facility] ED Note-Physicianon 11-30-19 ED Note-Physician Normal [facility] Comment on above: Result Comment: Elec tronically Signed By: Elkin Hitchcock DO.br\Date and Time Signed: 11/28/22 22:32 EDT ED Patient Education Noteon 11-29-2022 ED Patient Education Note Normal [facility] ED Patient Summaryon 023 ED Patient Summary Normal [facility] HEMATOLOGYOrdered By: SYSTEM SYSTEM on 11-29-2022 [...] 14.9 % High 10.9 - 14.2 % FT HemeAutoSS Hematocrit (Bld) [Volume fraction] 38.1 % Normal 37.7 - 49.0 % FT HemeAutoSS Hemoglobin (Bld) [Mass/Vol] 12.8 g/dL Low [...] 11-29-2022 Albumin [Mass/Vol] 3.6 g/dL Normal 3.3-5.0 [facility] Comment on above: Performed By: #### 2 807551, 5532328, 9382275, 07880835, 28425952, 7111346, 58037686, 1997551, 63224150, 587155553, 2358739, 3718506 ####[facility] [address] [place] [address] Albumin/Globulin (S) [Mass conc ratio] 1.2 Normal 1.1-2.2 [facility] Comment on above: Performed By: #### 2 042434, 1069375, 7487559, 33941018, 50338598, 1751332, 45671779, 9979216, 13796608, 366652408, 7625044, 1275554 ####[facility] [address] [place] [address] ALP [Catalytic activity/Vol] 40 Int._Unit/L Normal 21-98 [facility] Comment on above: Performed By: #### 2 848689, 6701221, 7519550, 55806958, 47582437, 2843568, 93934863, 0676019, 75916397, 892394148, 5465765, 2497014 ####[address] [place] [address] ALT No additional P-5'-P [Catalytic activity/Vol] 17 Int._Unit/L Normal 6-46 [facility] Comment on above: Performed By: #### 2 648165, 6958397, 7246720, 14692303, 08147105, 6655199, 17506214, 0507457, 44795540, 781491525, 7802740, 6304549 ####[address] [address] AST [Catalytic activity/Vol] 33 Int._Unit/L Normal 5-43 [facility] Comment on above: Performed By: #### 2 708101, 1215636, 6473227, 58596819, 01594896, 4287816, 33929289, 4380478, 66450393, 944373378, 7705244, 8018129 ####[facility] [address] [place] [address] Bilirubin [Mass/Vol] 1.1 mg/dL Normal 0.0-1.1 [facility] Comment on above: Performed By: #### 2 941581, 4622496, 0875890, 07305863, 25358392, 6332691, 24617639, 9016084, 65216844, 279640415, 8764789, 8066813 ####[address] [place] [address] Bilirubin.direct [Mass/Vol] 0.2 mg/dL Normal 0.1-0.4 [facility] Comment on above: Performed By: #### 2 036653, 0827034, 7521700, 42216888, 50009543, 6256794, 77772656, 1290647, 95931510, 273424770, 2112833, 3329082 ####[facility] [address] [place] [address] Bilirubin.indirect [Mass or moles/Vol] 0.9 mg/dL Normal 0.1-0.9 [facility] Comment on above: Performed By: #### 2 589589, 1271290, 0918062, 00432254, 46725830, 6128138, 33729615, 3362486, 52361461, 554914129, 6197841, 2381477 ####[facility] [address] [place] [address] Globulin (S) [Mass/Vol] 3.1 g/dL Normal 1.4-4.0 [facility] Comment on above: Performed By: #### 2 138501, 6983405, 6732271, 48539488, 08808854, 1280411, 90367698, 2788651, 65826842, 858086424, 1136151, 5577137 ####[facility] [address] [place] [address] Protein [Mass/Vol] 6.7 g/dL Normal 6.0-7.8 [facility] Comment on above: Performed By: #### 2 014404, 0506417, 5983654, 58614241, 69799782, 9705813, 93585290, 3605310, 77421693, 839316005, 1193991, 2077680 ####[facility] [address] [place] [address] Interdisciplinary Note - Santosh e Manageron 11-29-2022 Interdisciplinary Note - Shanker Out Normal [facility] Comment on above: Result Comment: Elec tronically Signed By: Jose RN, Norma\.br\Date and Time Signed: 11/29/22 15:07 EDT Lipid Panelon 11-29-2022 Cholesterol [Mass/Vol] 114 mg/dL Low 120-200 [facility] Comment on above: Performed By: #### 2 163990, 0207229, 4215088, 24336593, 73270466, 7041721, 68777861, 1147730, 98719720, 525499396, 5290709, 5688808 ####[facility] [address] [place] [address] Cholesterol in HDL [Mass/Vol] 50 mg/dL Invalid Interpretation Code [facility] Comment on above: Result Comment: HDL > or equal to 60 mg/dL: Low cardiovascular riskHDL < 40 mg/dL : High cardiovascular risk Performed By: #### 2 001927, 3307670, 0303121, 23254498, 33882751, 5925330, 45910331, 2434349, 61508976, 737968852, 3853520, 5693213 ####[facility] [address] [place] [address] Cholesterol in LDL [Mass/Vol] 43 mg/dL Normal <=129 [facility] Comment on above: Performed By: #### 2 139509, 2403615, 3431741, 17533643, 41014957, 8133094, 14801658, 1939539, 19590316, 851619883, 8736150, 6219317 ####[facility] [address] [place] [address] Cholesterol in VLDL [Mass/Vol] 14 mg/dL Normal 7-40 [facility] Comment on above: Performed By: #### 2 040785, 4477876, 6845814, 89835252, 25034391, 9888415, 23447443, 9496159, 54950771, 556328692, 6586544, 4117250 ####[facility] [address]Nor[facility] [place] [address] Triglyceride [Mass/Vol] 72 mg/dL Normal <=149 [facility] Comment on above: Performed By: #### 2 420873, 6030532, 6851099, 76139789, 62545267, 2479409, 53097962, 9169732, 56976059, 357111879, 9784931, 7580940 ####[facility] [address] [place] [address] Monitor Recordon 11-29-2022 Monitor Record [id number]#1. 00CD:127 Normal [facility] Monitor Record [id number]#1. 00CD:127 Normal [facility] Monitor Record [id number] 70 [id number]#1. 00CD:127 Normal [facility] Monitor Record [id number]#1. 00CD:127 Normal [facility] Monitor Record [id number]#1. 00CD:127 Normal [facility] Monitor Record [id number] 70 [id number]#1. 00CD:127 Normal [facility] Monitor Record [id number]#1. 00CD:127 Normal [facility] Monitor Record [id number] 70 [id number]#1. 00CD:127 Normal [facility] Progress Note-Physicianon Progress Note-Physician Normal [facility] Comment on above: Result Comment: Elec tronically Signed By: New Johnson DO.br\Date and Time Signed: 11/29/22 10:54 EDT RAD - Preliminary Cat Scan R eporton 11-29-2022 RAD - Preliminary Cat Scan Report [id number]#1 .00CD:127 Normal [facility] Sed Rate Automatedon 023 Sed Rate Automated 17 mm/hr Normal 0-19 [facility] Comment on above: Performed By: #### 2 738207, 9089884, 9587432, 01761959, 50529398, 6928076, 82114839, 8661841, 21245487, 419434446, 7689582, 4906800 ####[facility] [address] [place] [address] TSH With T4fr Reflexon 11-29 TSH Qn 3.43 m[IU]/L Normal 0.34-5.60 [facility] Comment on above: Performed By: #### 2 526816, 6601994, 8209763, 44172761, 50927033, 1270898, 80419848, 9791921, 16409365, 882293280, 6953228, 9370235 ####[facility] [address] [place] [address] Troponin 6 Hr.on 11-29-2022 Troponin I.cardiac [Mass/Vol] 32.60 pg/mL Normal 15.90-38.40 [facility] Comment on above: Result Comment: The 95% CI (Confidence Interval) PPV (Positive Predictive Value) for myocardial infarction in females is 38 pg/mL, in males 51 pg/mL. The results should be used in conjunction with clinical conditions of myocardial infarction.(Access High Sensitivity Troponin I Instructions For Use, [employer], December 2017) Performed By: #### 1 8785475 ####[facility] [address] [place] [address] Troponin 9 Hr.on 11-29-2022 Troponin I.cardiac [Mass/Vol] 37.00 pg/mL Normal 15.90-38.40 [facility] Comment on above: Result Comment: The 95% CI (Confidence Interval) PPV (Positive Predictive Value) for myocardial infarction in females is 38 pg/mL, in males 51 pg/mL. The results should be used in conjunction with clinical conditions of myocardial infarction.(Access High Sensitivity Troponin I Instructions For Use, [employer], December 2017) Performed By: #### 1 0864540 ####[facility] [address] [place] [address] Vitamin D 25 Hydroxyon 11-29 25-hydroxyvitamin D3 [Mass/Vol] ng/mL Low 30.0-100.0 [facility] Comment on above: Result Comment: Vit palacios D deficiency has been defined as a level of serum 25-OH vitamin D less than 20 ng/mL (1,2) by the [place] of [employer] and an Endocrine Society practice guideline. The Endocrine Society further defined vitamin D insufficiency as a level between 21 and 29 ng/mL (2). 1. IOM ([place] of [employer]). 2010. Dietary reference intakes for calcium and D. [place]: The National Academies Press. 2. Patricia MF, Parisa AGUIRRE, Reji PETERS, et al. Evaluation, treatment, and prevention of vitamin D deficiency: an Endocrine Society clinical practice guideline. JCEM. 2010; 96 (7):1911-30. Performed By: #### 2 857034, 5225142, 6639545, 63598538, 70863966, 8599813, 61827757, 4068186, 04007338, 647331290, 8781052, 9509752 ####[facility] [address] [place] [address] eGFRon 11-29-2022 GFR/1.73 sq M.predicted among non-blacks MDRD (S/P/Bld) [Vol rate/Area] 69 mL/min/1.73 m2 Normal >=59 [facility] Comment on above: Order Comment: Order added by Discern Expert. 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 Kidney failure is indicated at less than 15 mL/min/1.73m2. Performed By: #### 2 518510, 8484673, 2786954, 87940196, 29185624, 6255360, 61253561, 9191874, 38978258, 015039716, 0808954, 3596724 ####[facility] [address] [place] [address] Auto Diffon 11-28-2022 Basophils/100 WBC (Bld) 0.7 % Normal 0.0-2.0 [facility] Comment on above: Order Comment: Order Added by Discern Expert. Performed By: #### 1 2244227, 1411089, 2591940, 6516992, 87448296 ####[address] [place] [address] Basophils/Leukocytes Auto (Bld) [Pure # fraction] 0.0 E9/L Normal 0.0-0.2 [facility] Comment on above: Order Comment: Order Added by Discern Expert. Performed By: #### 1 5509136, 4788491, 2725140, 7766602, 81843216 ####[address] [place] [address] Eosinophils/100 WBC (Bld) 7.4 % Normal 0.0-8.0 [facility] Comment on above: Order Comment: Order Added by Bethany Expert. Performed By: #### 1 4492280, 6971762, 7199142, 4942930, 99581563 ####[address] [address] Eosinophils/Leukocytes Auto (Bld) [Pure # fraction] 0.5 E9/L Normal 0.0-0.5 [facility] Comment on above: Order Comment: Order Added by Bethany Expert. Performed By: #### 1 0029630, 5121770, 7705228, 3272175, 15924284 ####[address] [address] Lymphocytes/100 WBC (Bld) 9.3 % Low 14.0-50.0 [facility] Comment on above: Order Comment: Order Added by Bethany Expert. Performed By: #### 1 0644739, 4814832, 3376864, 5978320, 99187005 ####[address] [place] [address] Lymphocytes/Leukocytes Auto (Bld) [Pure # fraction] 0.7 E9/L Low 1.0-4.0 [facility] Comment on above: Order Comment: Order Added by Bethany Expert. Performed By: #### 1 5385003, 6117294, 8607717, 2907925, 45399663 ####[facility] [address] [place] [address] Monocytes/100 WBC (Bld) 6.6 % Normal 4.0-14.0 [facility] Comment on above: Order Comment: Order Added by Discern Expert. Performed By: #### 1 3303231, 6567194, 1543204, 4319887, 28682398 ####[facility] [address] [place] [address] Monocytes/Leukocytes Auto (Bld) [Pure # fraction] 0.5 E9/L Normal 0.2-1.0 [facility] Comment on above: Order Comment: Order Added by Discern Expert. Performed By: #### 1 7181171, 1288277, 8508586, 0535005, 92451795 ####[address] [place] [address] Neutrophils/100 WBC (Bld) 76.0 % High 36.0-75.0 [facility] Comment on above: Order Comment: Order Added by Bethany Expert. Performed By: #### 1 2841215, 3530601, 4004340, 7362520, 04013162 ####[address] [place] [address] Neutrophils/Leukocytes Auto (Bld) [Pure # fraction] 5.4 E9/L Normal 2.0-7.5 [facility] Comment on above: Order Comment: Order Added by Discern Expert. Performed By: #### 1 1740815, 9864317, 0014360, 0364223, 31925603 ####[facility] [address] [place] [address] BMPon 11-28-2022 Creatinine [Mass/Vol] 1.0 mg/dL Normal 0.5-1.3 [facility] Comment on above: Performed By: #### 1 9571352, 2055060, 7435481, 2478359, 37241780 ####[address] [place] [address] Urea nitrogen [Mass/Vol] 16 mg/dL Normal 5-21 [facility] Comment on above: Performed By: #### 1 5211413, 8875245, 9286608, 3634718, 27200261 ####[facility] [address] [place] [address] Urea nitrogen/Creatinine [Mass ratio] 16 No Units Normal 10-20 [facility] Comment on above: Performed By: #### 1 8625923, 7504799, 0500698, 9851905, 44107258 ####[facility] [address] [place] [address] Anion gap [Moles/Vol] 10 mmol/L Normal 6-16 [facility] Comment on above: Performed By: #### 1 9877435, 1895185, 5168384, 4317109, 80941084 ####[facility] [address] [place] [address] Calcium [Mass/Vol] 8.8 mg/dL Low 8.9-11.1 [facility] Comment on above: Performed By: #### 1 5311735, 1315363, 7628603, 5380765, 46058837 ####[facility] [address] [place] [address] Chloride [Moles/Vol] 105 mmol/L Normal 101-111 [facility] Comment on above: Performed By: #### 1 3715101, 9089309, 8761148, 2753883, 42054301 ####[facility] [address] [place] [address] CO2 [Moles/Vol] 28 mmol/L Normal 21-31 [facility] Comment on above: Performed By: #### 1 7827696, 8085249, 2441567, 6175863, 71761464 ####[facility] [address] [place] [address] Glucose [Mass/Vol] 114 mg/dL Normal 55-199 [facility] Comment on above: Result Comment: If t his glucose result represents a fasting glucose, interpretation should refer to the following reference range: 55-99 mg/dL Performed By: #### 1 0014574, 4041276, 1201267, 5375580, 68604424 ####[facility] [address] [place] [address] Potassium [Moles/Vol] 4.1 mmol/L Normal 3.5-5.3 [facility] Comment on above: Performed By: #### 1 1288564, 7346959, 8018953, 1417218, 15059722 ####[facility] [address] [place] [address] Sodium [Moles/Vol] 139 mmol/L Normal 135-145 [facility] Comment on above: Performed By: #### 1 7084514, 8467915, 9445826, 7223697, 55621900 ####[facility] [address] [place] [address] Blood Gas Art, with Lytes, G christal, [place] 11-28-2022 a/A Ratio Art 53.40 % Normal >=0.80 [facility] Comment on above: Performed By: #### 4 19843523 ####[facility] [address] [place] [address] AaDO2 Art 64.9 mmHg High 5.0-15.0 [facility] Comment on above: Performed By: #### 4 16290346 ####[facility] [address] [place] [address] Allens Test Positive Normal [facility] Comment on above: Performed By: #### 4 57499359 ####[facility] [address] [place] [address] Base Excess Arterial 2.9 mmol/L Normal >=2.8 [facility] Comment on above: Performed By: #### 4 06028918 ####[facility] [address] [place] [address] cCa2+ Art 4.88 mg/dL Normal 4.40-5.30 [facility] Comment on above: Performed By: #### 4 26441385 ####[facility] [address] [place] [address] cCl- Art 103.0 mmol/L Normal 101.0-111.0 [facility] Comment on above: Performed By: #### 4 51531069 ####[facility] [address] [place] [address] cGlu Art 98 mg/dL Normal 55-99 [facility] Comment on above: Performed By: #### 4 97958325 ####[address] [place] [address] cK+ Art 3.6 mmol/L Normal 3.5-5.3 [facility] Comment on above: Performed By: #### 4 26936387 ####[address] [address] cLac Art .6 mmol/L Normal .5-2.2 [facility] Comment on above: Performed By: #### 4 51613555 ####[address] [facility] [place] [address] forester silviculture+ Art 139.0 mmol/L Normal 135.0-145.0 [facility] Comment on above: Performed By: #### 4 48718805 ####[address] [place] [address] Drawn by nmb Invalid Interpretation Code [facility] Comment on above: Performed By: #### 4 49286336 ####[address] [place] [address] FCOHb Art 1.5 % Normal 1.5-4.9 [facility] Comment on above: Result Comment: Refe rence rangeNonsmoker <1.5%Smoker <5.0%Heavy Smoker <9.0% Performed By: #### 4 03231931 ####[facility] [address] [place] [address] FIO2 BG 28 Invalid Interpretation Code [facility] Comment on above: Performed By: #### 4 54786032 ####[address] [address] Flow 2 Invalid Interpretation Code [facility] Comment on above: Performed By: #### 4 08624415 ####[address] [address] FMetHb Art 0.3 % Normal 0.0-1.9 [facility] Comment on above: Performed By: #### 4 15462196 ####[address] [address] FO2Hb Art 93.7 % Normal 93.0-100.0 [facility] Comment on above: Performed By: #### 4 55527493 ####[address] [address] HCO3 (Bld) [Moles/Vol] 26.9 mmol/L High 22.0-26.0 [facility] Comment on above: Performed By: #### 4 86511149 ####[address] [address] Hemoglobin (Bld) [Mass/Vol] 11.9 g/dL Low 12.0-17.0 [facility] Comment on above: Performed By: #### 4 65268286 ####[address] [address] Oxygen saturation in Blood 95.4 % Normal 95.0-100.0 [facility] Comment on above: Performed By: #### 4 98275190 ####[address] [address] P CO2 Arterial 47.6 mmHg High 35.0-45.0 [facility] Comment on above: Performed By: #### 4 68905931 ####[address] [address] P O2 Arterial 74.3 mmHg Low 80.0-100.0 [facility] Comment on above: Performed By: #### 4 25539868 ####[address] [address] pH Arterial 7.387 Normal 7.350-7.450 [facility] Comment on above: Performed By: #### 4 22434125 ####[facility] [address] [place] [address]757 Sample Site R Radial Normal [facility] Comment on above: Performed By: #### 4 31833494 ####[facility] [address] [place], [place] [address] Sample Type Arterial Draw Normal [facility] Comment on above: Performed By: #### 4 51608945 ####[facility] [address] [place] [address] CBC w/ Auto Diffon 3 Erythrocyte distribution width (RBC) [Ratio] 14.8 % High 10.9-14.2 [facility] Comment on above: Performed By: #### 1 0294231, 4160139, 7047084, 0749274, 29642790 ####[facility] [address] [place] [address]757 Hematocrit (Bld) [Volume fraction] 37.3 % Low 37.7-49.0 [facility] Comment on above: Performed By: #### 1 5541305, 1145848, 6658774, 1732383, 98942839 ####[address] [place] [address] Hemoglobin (Bld) [Mass/Vol] 12.3 g/dL Low 13.5-17.5 [facility] Comment on above: Performed By: #### 1 0526202, 9300778, 4990852, 3177522, 30766349 ####[facility] [address] [place] [address] MCH (RBC) [Entitic mass] 28.3 pg Normal 27.0-34.0 [facility] Comment on above: Performed By: #### 1 0658671, 5664698, 6924278, 2202625, 51915415 ####[facility] [address] [place] [address]757 MCHC (RBC) [Mass/Vol] 33.0 g/dL Normal 31.4-36.0 [facility] Comment on above: Performed By: #### 1 0525882, 1378120, 9795522, 4936136, 04345731 ####[facility] [address] [place] [address] MCV (RBC) [Entitic vol] 85.9 fL Normal 80.0-100.0 [facility] Comment on above: Performed By: #### 1 [id number], [id number], [id number], [id number], [id number] ####[place] [id number] [place] [id number] Platelet mean volume (Bld) [Entitic vol] 10.4 fL Normal 6.4-10.8 [facility] Comment on above: Performed By: #### 1 [id number], [id number], [id number], [id number], [id number] ####[place] [id number] Platelets (Bld) [#/Vol] 189.0 E9/L Normal 150.0-500.0 [facility] Comment on above: Performed By: #### 1 [id number], 0377027, 1366552, 8297632, [id number] ####[place] [id number] RBC (Bld) [#/Vol] 4.3 E12/L Normal 4.3-5.9 [facility] Comment on above: Performed By: #### 1 [id number], 5397209, 2621457, 2701335, 01798339 ####[address] [place] [address] WBC corrected for nucl RBC Auto (Bld) [#/Vol] 7.1 E9/L Normal 4.0-11.0 [facility] Comment on above: Performed By: #### 1 8531698, 1521071, 4015238, 0003364, 10392330 ####[place] [address] [id number] CHEMISTRYOrdered By: SYSTEM SYSTEM on 11-28-2022 Troponin I.cardiac [Mass/Vol] 32.60 pg/mL Normal 15.90 - 38.40 pg/mL FT Remisol Troponin I.cardiac [Mass/Vol] 26.90 pg/mL Normal 15.90 - 38.40 pg/mL FT Remisol Consent for Treatmenton Consent for Treatment [id number] 0CD:127 Normal [facility] ED Note-Physicianon 11-29-19 ED Note-Physician Normal [facility] Comment on above: Result Comment: Elec [...] - 2.2 mmol/L FT Resp Auto SS forester silviculture+ Art 139.0 mmol/L Normal 135.0 - 145.0 mmol/L FT Resp Auto SS Drawn by nmb Invalid Interpretation Code FT Resp Auto SS FCOHb Art 1.5 % Normal 1.5 - 4.9 % FT Resp Auto SS FIO2 BG 28 Invalid Interpretation Code FT Resp Auto SS Flow 2 Invalid Interpretation Code FT Resp Auto SS FMetHb Art 0.3 % Normal 0.0 - 1.9 % [facility] Resp Auto SS FO2Hb Art 93.7 % Normal 93.0 - 100.0 % [facility] Resp Auto SS HCO3 (Bld) [Moles/Vol] 26.9 mmol/L High 22.0 - 26.0 mmol/L [facility] Resp Auto SS Hemoglobin (Bld) [Mass/Vol] 11.9 g/dL Low 12.0 - 17.0 gm/dL [facility] Resp Auto SS P CO2 Arterial 47.6 mm[Hg] High 35.0 - 45.0 mmHg FT Resp Auto SS P O2 Arterial 74.3 mm[Hg] Low 80.0 - 100.0 mmHg [facility] Resp Auto SS pH Arterial 7.387 Normal 7.350 - 7.450 [facility] Resp Auto SS Sample Site R Radial (11/28/22 6:55 PM) Normal [facility] Resp Auto SS Sample Type Arterial Draw (11/28/22 6:55 PM) Normal [facility] Resp Auto SS HEMATOLOGYOrdered By: SYSTEM SYSTEM on 11-28-2022 Basophils/100 WBC (Bld) 0.7 % Normal 0.0 - 2.0 % [facility] HemeAutoSS Basophils/Leukocytes Auto (Bld) [Pure # fraction] 0.0 E9/L Normal 0.0 - 0.2 E9/L FT HemeAutoSS Eosinophils/100 WBC (Bld) 7.4 % Normal 0.0 - 8.0 % FT HemeAutoSS Eosinophils/Leukocytes Auto (Bld) [Pure # fraction] 0.5 E9/L Normal 0.0 - 0.5 E9/L [facility] HemeAutoSS Lymphocytes/100 WBC (Bld) 9.3 % Low 14.0 - 50.0 % FT HemeAutoSS Lymphocytes/Leukocytes Auto (Bld) [Pure # fraction] 0.7 E9/L Low 1.0 - 4.0 E9/L [facility] HemeAutoSS Monocytes/100 WBC (Bld) 6.6 % Normal 4.0 - 14.0 % [facility] HemeAutoSS Monocytes/Leukocytes Auto (Bld) [Pure # fraction] 0.5 E9/L Normal 0.2 - 1.0 E9/L [facility] HemeAutoSS Neutrophils/100 WBC (Bld) 76.0 % High 36.0 - 75.0 % FT HemeAutoSS Neutrophils/Leukocytes Auto (Bld) [Pure # fraction] 5.4 E9/L Normal 2.0 - 7.5 E9/L FT HemeAutoSS HEMATOLOGYOrdered By: Natalie Soto on 11-28-2022 [...] Pre-Arrival Noteon Pre-Arrival Note Normal [facility] Troponin 0 Hr.on 11-28-2022 Troponin I.cardiac [Mass/Vol] 21.80 pg/mL Normal 15.90-38.40 [facility] Comment on above: Result Comment: The 95% CI (Confidence Interval) PPV (Positive Predictive Value) for myocardial infarction in females is 38 pg/mL, in males 51 pg/mL. The results should be used in conjunction with clinical conditions of myocardial infarction.(Access High Sensitivity Troponin I Instructions For Use, Claudia Bobtown, December 2017) Performed By: #### 1 [id number], 5973232, 0883740, 2658815, 36449423 ####[facility] [address] [place] [address] Troponin 3 Hr.on 11-28-2022 Troponin I.cardiac [Mass/Vol] 26.90 pg/mL Normal 15.90-38.40 [facility] Comment on above: Result Comment: The 95% CI (Confidence Interval) PPV (Positive Predictive Value) for myocardial infarction in females is 38 pg/mL, in males 51 pg/mL. The results should be used in conjunction with clinical conditions of myocardial infarction.(Access High Sensitivity Troponin I Instructions For Use, Claudia Bobtown, December 2017) Performed By: #### 1 [id number] ####[facility] [address] [place] [address] UA With Cult Reflexon 2022 Crystals LM Ql (Urine sed) Present Normal [facility] Comment on above: Performed By: #### 1 [id number] ####[place] [id number] Epithelial cells.squamous LM.HPF (Urine sed) [#/Area] 0-2 Normal 0-2 [facility] Comment on above: Performed By: #### 1 7237282 ####[facility] [address] [place], [place] [address] Florence-Graham.plasma/Florence-Graham.R BC (Bld) [Mass ratio] 0-3 Normal 0-3 [facility] Comment on above: Performed By: #### 1 7756622 ####[facility] [address] [place], [place] [address] Mucus Ql (Urine sed) TRACE Normal [facility] Comment on above: Performed By: #### 1 2872975 ####[facility] [address] [place] [address] WBC LM.HPF (Urine sed) [#/Area] 0-5 Normal 0-5 [facility] Comment on above: Performed By: #### 1 0794066 ####[address] [address] Bilirubin Ql (U) Negative Normal Negative [facility] Comment on above: Performed By: #### 1 5911744 ####[facility] [address] [place] [address] Clarity (U) CLEAR Normal Clear [facility] Comment on above: Performed By: #### 1 0587372 ####[facility] [address] [place] [address] Color (U) YELLOW Normal Yellow [facility] Comment on above: Performed By: #### 1 6575833 ####[facility] [address] [place] [address] Glucose Test strip (U) [Mass/Vol] Negative Normal Negative [facility] Comment on above: Performed By: #### 1 3218403 ####[address] [place] [address] Hemoglobin Ql (U) Negative Normal Negative [facility] Comment on above: Performed By: #### 1 7018000 ####[facility] [address] [place] [address] Ketones (U) [Mass/Vol] Negative Normal Negative [facility] Comment on above: Performed By: #### 1 2620674 ####[facility] [address] [place] [address] Nitrite Ql (U) Negative Normal Negative [facility] Comment on above: Performed By: #### 1 6173727 ####[facility] [address] [place] [address] pH (U) 6.0 [pH] Invalid Interpretation Code 5.0-9.0 [facility] Comment on above: Performed By: #### 1 9145313 ####[facility] [address] [place] [address] Protein (U) [Mass/Vol] 2+ Abnormal Negative [facility] Comment on above: Performed By: #### 1 0865062 ####[address] [place] [address] Specific gravity (U) [Rel density] 1.025 Invalid Interpretation Code 1.005-1.030 [facility] Comment on above: Performed By: #### 1 9795617 ####[facility] [address] [place] [address] Type of Urine collection method Clean Catch Normal [facility] Comment on above: Performed By: #### 1 0306745 ####[facility] [address] [place] [address] Urobilinogen Qn (U) 0.2 {Lei'U}/dL Normal 0.0-1.0 [facility] Comment on above: Performed By: #### 1 7628342 ####[facility] [address] [place] [address] WBC Auto Ql (U) Negative Normal Negative [facility] Comment on above: Performed By: #### 1 0232129 ####[facility] [address] [place] [address] URINALYSISOrdered By: Emily Suero on 11-28-2022 Bilirubin [...] PM) Normal Negative [facility] UA Auto SS Florence-Graham.plasma/Florence-Graham.R BC (Bld) [Mass ratio] 0-3 /HPF Normal [...] FT UA Auto SS Urobilinogen Qn (U) 0.4491326 {Lei'U}/dL Normal 0.0 - 1.0 EU/dL FT UA Auto SS WBC Auto Ql (U) Negative (11/28/22 5:55 PM) Normal Negative [facility] UA Auto SS WBC LM.HPF (Urine sed) [#/Area] 0-5 /HPF Normal 0-5/HPF FT UA Auto SS XR Chest Single Viewon 11-28 XR Chest Single View Normal [facility] eGFRon 11-28-2022 GFR/1.73 sq M.predicted among non-blacks MDRD (S/P/Bld) [Vol rate/Area] 77 mL/min/1.73 m2 Normal >=59 [facility] Comment on above: Order Comment: Order added by Discern Expert. 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 Kidney failure is indicated at less than 15 mL/min/1.73m2. Performed By: #### 1 1712285, 3417127, 4024503, 9288645, 25964683 ####[facility] [address] [place] [address] CHEMISTRYOrdered By: SYSTEM SYSTEM on 11-26-2022 Albumin [Mass/Vol] 3.7 g/dL Normal 3.3 - 5.0 gm/dL FT Remisol Albumin/Globulin [Mass ratio] 1.2 {ratio} Normal [...] 145 mmol/L Normal 135 - 145 mmol/L FT Remisol Triglyceride [Mass/Vol] 69 mg/dL Normal <=149mg/dL F [facility] Remisol TSH Qn 2.07 m[IU]/L Normal 0.34 - 5.60 mcIU/mL FT Remisol Urea nitrogen [Mass/Vol] 18 mg/dL Normal 5 - 21 mg/dL FT Remisol Urea nitrogen/Creatinine [Mass ratio] 20 mg/mg Normal 10 - 20 [facility] CMPon 11-26-2022 Albumin [Mass/Vol] 3.7 g/dL Normal 3.3-5.0 [facility] Comment on above: Performed By: #### 2 236415, 8744221, 15882053, 7655446 ####[facility] [address] [place] [address] Albumin/Globulin (S) [Mass conc ratio] 1.2 Normal 1.1-2.2 [facility] Comment on above: Performed By: #### 2 686628, 8354164, 72168387, 4992176 ####[facility] [address] [place] [address] ALP [Catalytic activity/Vol] 38 Int._Unit/L Normal 21-98 [facility] Comment on above: Performed By: #### 2 142530, 1494023, 47123078, 8391491 ####[facility] [address] [place] [address] ALT No additional P-5'-P [Catalytic activity/Vol] 11 Int._Unit/L Normal 6-46 [facility] Comment on above: Performed By: #### 2 264716, 3454847, 20433342, 1522349 ####[facility] [address] [place] [address] Anion gap [Moles/Vol] 14 mmol/L Normal 6-16 [facility] Comment on above: Performed By: #### 2 366932, 3443318, 81993863, 8403625 ####[facility] [address] [address] AST [Catalytic activity/Vol] 15 Int._Unit/L Normal 5-43 [facility] Comment on above: Performed By: #### 2 528719, 8490660, 29530735, 4504882 ####[facility] [address] [place] [address] Bilirubin [Mass/Vol] 1.0 mg/dL Normal 0.0-1.1 [facility] Comment on above: Performed By: #### 2 533809, 5520485, 69619983, 9635275 ####[facility] [address] [place] [address] Calcium [Mass/Vol] 9.2 mg/dL Normal 8.9-11.1 [facility] Comment on above: Performed By: #### 2 922394, 4876938, 41554631, 7930230 ####[facility] [address] [place] [address] Chloride [Moles/Vol] 107 mmol/L Normal 101-111 [facility] Comment on above: Performed By: #### 2 396894, 4391658, 38831151, 2884596 ####[facility] [address] [place] [address] CO2 [Moles/Vol] 28 mmol/L Normal 21-31 [facility] Comment on above: Performed By: #### 2 381432, 6196868, 02366445, 2041749 ####[facility] [address] [place] [address] Creatinine [Mass/Vol] 0.9 mg/dL Normal 0.5-1.3 [facility] Comment on above: Performed By: #### 2 912466, 9447857, 17751551, 2626695 ####[facility] [address] [address] Globulin (S) [Mass/Vol] 3.2 g/dL Normal 1.4-4.0 [facility] Comment on above: Performed By: #### 2 408339, 9002874, 96781147, 1586425 ####[facility] [address] [place] [address] Glucose [Mass/Vol] 95 mg/dL Normal 55-199 [facility] Comment on above: Result Comment: If t his glucose result represents a fasting glucose, interpretation should refer to the following reference range: 55-99 mg/dL Performed By: #### 2 409222, 9573611, 52129374, 6087142 ####[facility] [address] [place] [address] Potassium [Moles/Vol] 4.2 mmol/L Normal 3.5-5.3 [facility] Comment on above: Performed By: #### 2 939081, 7944417, 51105764, 1660335 ####[facility] [address] [place] [address] Protein [Mass/Vol] 6.9 g/dL Normal 6.0-7.8 [facility] Comment on above: Performed By: #### 2 178785, 8322822, 50124370, 6476616 ####[facility] [address] [place] [address] Sodium [Moles/Vol] 145 mmol/L Normal 135-145 [facility] Comment on above: Performed By: #### 2 165831, 7881996, 62929344, 7866061 ####[facility] [address] [place] [address] Urea nitrogen [Mass/Vol] 18 mg/dL Normal 5-21 [facility] Comment on above: Performed By: #### 2 499196, 9107111, 03094890, 7588656 ####[facility] [address] [place] [address] Urea nitrogen/Creatinine [Mass ratio] 20 No Units Normal 10-20 [facility] Comment on above: Performed By: #### 2 520501, 3218819, 89477653, 6095963 ####[facility] [address] [place] [address] Consent for Treatmenton 07- Consent for Treatment [id number]#1.0 0CD:127 Normal [facility] Lipid Panelon 11-26-2022 Cholesterol [Mass/Vol] 112 mg/dL Low 120-[address] [facility] Comment on above: Performed By: #### 2 976510, 3062453, 19117559, 0943923 ####[facility] [address] [place] [address] Cholesterol in HDL [Mass/Vol] 49 mg/dL Invalid Interpretation Code [facility] Comment on above: Result Comment: HDL > or equal to 60 mg/dL: Low cardiovascular riskHDL < 40 mg/dL : High cardiovascular risk Performed By: #### 2 278262, 5559774, 78453336, 2653660 ####[facility] [address] [place] [address] Cholesterol in LDL [Mass/Vol] 42 mg/dL Normal <=129 [facility] Comment on above: Performed By: #### 2 009491, 8488021, 18282886, 2727889 ####[facility] [address] [place] [address] Cholesterol in VLDL [Mass/Vol] 14 mg/dL Normal 7-40 [facility] Comment on above: Performed By: #### 2 985038, 3002355, 48208505, 4017444 ####[facility] [address] [place] [address] Triglyceride [Mass/Vol] 69 mg/dL Normal <=149 [facility] Comment on above: Performed By: #### 2 635442, 5916872, 36089672, 8040288 ####[facility] [address] [place] [address] Physician Orderon 11-26-2022 Physician Order [id number]#1. 00CD:127 Normal [facility] TSHon 11-26-2022 TSH Qn 2.07 m[IU]/L Normal 0.34-5.60 [facility] Comment on above: Performed By: #### 2 309313, 8876115, 12763642, 9412875 ####[facility] [address] [place] [address] eGFRon 11-26-2022 GFR/1.73 sq M.predicted among non-blacks MDRD (S/P/Bld) [Vol rate/Area] 87 mL/min/1.73 m2 Normal >=59 [facility] Comment on above: Order Comment: Order added by Discern Expert. 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 Kidney failure is indicated at less than 15 mL/min/1.73m2. Performed By: #### 2 323247, 5071050, 13980060, 0980474 ####[facility] [address] [place] [address] Discharge Instructionson Discharge Instructions [id number]#1.0 0CD:127 Normal [facility] Transfer Documentson 023 Transfer Documents [id number]#1.0 0CD:127 Normal [facility] Capillary Glucose POCon Glucose [Mass/Vol] 166 mg/dL High 55-99 [facility] Comment on above: Result Comment: Gareth guerrero RN/ Performed By: #### 2 30124798 ####[facility] [address] [place] [address] Glucose [Mass/Vol] 119 mg/dL High 55-99 [facility] Comment on above: Result Comment: Repe at Test Performed By: #### 2 08831539 ####[facility] [address] [place] [address] Discharge Note-Nursingon Discharge Note-Nursing Normal Fi [facility] BdpO4pfl 09-28-2022 HbA1c (Bld) [Mass fraction] 6.4 % High <=5.9 [facility] Comment on above: Order Comment: IF UN ABLE TO ADD TO ED LABS Performed By: #### 2 585635, [id number] ####[facility] [address] [place] [address] Inpatient Clinical Summaryon 09-28-2022 Inpatient Clinical Summary Normal [facility] Inpatient Patient Summaryon 09-28-2022 Inpatient Patient Summary Normal [facility] Inpatient Patient Summary Normal [facility] Interdisciplinary Note - Santosh e Manageron 09-28-2022 Interdisciplinary Note - Shanker Out Normal [facility] Comment on above: Result Comment: Elec tronically Signed By: Jose HAYDEN, Norma\.br\Date and Time Signed: 09/28/22 15:54 EDT Monitor Recordon 09-28-2022 Monitor Record [id number]#1. 00CD:127 Normal [facility] Capillary Glucose POCon Glucose [Mass/Vol] 192 mg/dL High 55-99 [facility] Comment on above: Result Comment: Gareth GARDINER Performed By: #### 2 [id number] ####[facility] [address] [place] [address] Glucose [Mass/Vol] 130 mg/dL High 55-99 [facility] Comment on above: Result Comment: No C overage Given Performed By: #### 2 60763440 ####[facility] [address] [place] [address] Glucose [Mass/Vol] 202 mg/dL High 55-99 [facility] Comment on above: Result Comment: Gareth GARDINER Performed By: #### 2 74945008 ####[facility] [address] [place] [address] Glucose [Mass/Vol] 89 mg/dL Normal 55-99 [facility] Comment on above: Result Comment: Gareth GARDINER Performed By: #### 2 36503003 ####[facility] [address] [place] [address] Insurance Correspondence Off iceon 09-27-2022 Insurance Correspondence Office [id number]#1. 00CD:127 Normal [facility] Interdisciplinary Note - Santosh e Manageron 09-27-2022 Interdisciplinary Note - Shanker Out Normal [facility] Comment on above: Result Comment: Elec tronically Signed By: Natalie Grant\Date and Time Signed: 09/27/22 14:56 EDT Interdisciplinary Note - PTo n 09-27-2022 Interdisciplinary Note - PT Pt is safe and indep w/bed mobility, transfers and gait w/FWW. Pt uses FWW at home; he is at his baseline. NO PT needs at this time. No needs anticipated upon d/c home. AM-PAC Normal [facility] Lyteson 09-27-2022 Anion gap [Moles/Vol] 9 mmol/L Normal 6-16 [facility] Comment on above: Performed By: #### 2 379036, 508398758 ####[facility] [address] [place] [address] Chloride [Moles/Vol] 105 mmol/L Normal 101-111 [facility] Comment on above: Performed By: #### 2 544010, 446214019 ####[facility] [address] [place] [address] CO2 [Moles/Vol] 26 mmol/L Normal 21-31 [facility] Comment on above: Performed By: #### 2 651152, 294663403 ####[facility] [address] [place] [address] Potassium [Moles/Vol] 4.2 mmol/L Normal 3.5-5.3 [facility] Comment on above: Performed By: #### 2 360020, 178222416 ####[facility] [address] [place] [address] Sodium [Moles/Vol] 136 mmol/L Normal 135-145 [facility] Comment on above: Performed By: #### 2 974707, 939741226 ####[facility] [address] [place] [address] Monitor Recordon 09-27-2022 Monitor Record [id number]#1. 00CD:127 Normal [facility] Monitor Record [id number]#1. 00CD:127 Normal [facility] Progress Note-Nurseon 2022 Progress Note-Nurse Normal [facility] Progress Note-Physicianon Progress Note-Physician Normal [facility] Comment on above: Result Comment: Elec tronically Signed By: Adeline COLEMAN\.br\Date and Time Signed: 09/27/22 15:34 EDT\.br\Electronically Co-Signed By: Adeline COLEMAN\.br\Date and Time Co-Signed: 09/27/22 15:37 EDT\.br\Electronically Co-Signed By: Rei POTTS, Ganesh Pressley\.br\Date and Time Co-Signed: 09/27/22 18:58 EDT Auto Diffon 09-26-2022 Basophils/100 WBC (Bld) 0.5 % Normal 0.0-2.0 [facility] Comment on above: Order Comment: Order Added by Discern Expert. Performed By: #### 1 7715562, 8896923, 1478080, 6231916 ####[facility] [address] [place] [address] Basophils/Leukocytes Auto (Bld) [Pure # fraction] 0.0 E9/L Normal 0.0-0.2 [facility] Comment on above: Order Comment: Order Added by Discern Expert. Performed By: #### 1 5703906, 0430324, 4906758, 1661419 ####[facility] [address] [place] [address] Eosinophils/100 WBC (Bld) 3.3 % Normal 0.0-8.0 [facility] Comment on above: Order Comment: Order Added by Discern Expert. Performed By: #### 1 3439216, 3748734, 0081748, 8459209 ####[address] [place] [address] Eosinophils/Leukocytes Auto (Bld) [Pure # fraction] 0.3 E9/L Normal 0.0-0.5 [facility] Comment on above: Order Comment: Order Added by Bethany Expert. Performed By: #### 1 9323895, 1221204, 6985763, 8397281 ####[address] [place] [address] Lymphocytes/100 WBC (Bld) 9.5 % Low 14.0-50.0 [facility] Comment on above: Order Comment: Order Added by Bethany Expert. Performed By: #### 1 7496577, 4874223, 8772854, 5176740 ####[address] [address] Lymphocytes/Leukocytes Auto (Bld) [Pure # fraction] 0.8 E9/L Low 1.0-4.0 [facility] Comment on above: Order Comment: Order Added by Bethany Expert. Performed By: #### 1 0161301, 9662451, 0743484, 5661918 ####[address] [address] Monocytes/100 WBC (Bld) 7.2 % Normal 4.0-14.0 [facility] Comment on above: Order Comment: Order Added by Bethany Expert. Performed By: #### 1 7531443, 0194615, 7058295, 7507100 ####[address] [place] [address] Monocytes/Leukocytes Auto (Bld) [Pure # fraction] 0.6 E9/L Normal 0.2-1.0 [facility] Comment on above: Order Comment: Order Added by Bethany Expert. Performed By: #### 1 2141665, 6931154, 9466363, 1225567 ####[address] [address] Neutrophils/100 WBC (Bld) 79.5 % High 36.0-75.0 [facility] Comment on above: Order Comment: Order Added by Discern Expert. Performed By: #### 1 3639633, 3392976, 3594967, 0557194 ####[facility] [address] [place] [address] Neutrophils/Leukocytes Auto (Bld) [Pure # fraction] 6.7 E9/L Normal 2.0-7.5 [facility] Comment on above: Order Comment: Order Added by Discern Expert. Performed By: #### 1 1920087, 5223753, 5879903, 7323348 ####[facility] [address] [place] [address] BMPon 09-26-2022 Creatinine [Mass/Vol] 1.0 mg/dL Normal 0.5-1.3 [facility] Comment on above: Performed By: #### 1 7251645, 6008976, 2047882, 9671484 ####[facility] [address] [place] [address] Urea nitrogen [Mass/Vol] 25 mg/dL High 5-21 [facility] Comment on above: Performed By: #### 1 9206283, 1552994, 6829430, 9303903 ####[facility] [address] [place] [address] Urea nitrogen/Creatinine [Mass ratio] 25 No Units High 10-20 [facility] Comment on above: Performed By: #### 1 4581421, 2112532, 6140657, 0173255 ####[facility] [address] [place] [address] Anion gap [Moles/Vol] 10 mmol/L Normal 6-16 [facility] Comment on above: Performed By: #### 1 1919692, 3995276, 7752760, 2602180 ####[facility] [address] [place] [address] Calcium [Mass/Vol] 8.9 mg/dL Normal 8.9-11.1 [facility] Comment on above: Performed By: #### 1 2335812, 5611586, 6162645, 0404552 ####[facility] [address] [place] [address] Chloride [Moles/Vol] 101 mmol/L Normal 101-111 [facility] Comment on above: Performed By: #### 1 4825698, 3664017, 4710305, 9282915 ####[facility] [address] [place] [address] CO2 [Moles/Vol] 26 mmol/L Normal 21-31 [facility] Comment on above: Performed By: #### 1 1676245, 2214444, 5557479, 0454169 ####[facility] [address] [place] [address] Glucose [Mass/Vol] 112 mg/dL Normal 55-199 [facility] Comment on above: Result Comment: If t his glucose result represents a fasting glucose, interpretation should refer to the following reference range: 55-99 mg/dL Performed By: #### 1 7696527, 0667900, [id number], [id number] ####[facility] [address] [place] [address] Potassium [Moles/Vol] 4.1 mmol/L Normal 3.5-5.3 [facility] Comment on above: Performed By: #### 1 [id number], [id number], [id number], [id number] ####[facility] [address] [place] [address] Sodium [Moles/Vol] 133 mmol/L Low 135-145 [facility] Comment on above: Performed By: #### 1 [id number], [id number], [id number], [id number] ####[facility] [address] [place] [address] CBC w/ Auto Diffon 3 Erythrocyte distribution width (RBC) [Ratio] 14.6 % High 10.9-14.2 [facility] Comment on above: Performed By: #### 1 [id number], 8195215, 2879807, 7786886 ####[facility] [address] [place] [address] Hematocrit (Bld) [Volume fraction] 37.6 % Low 37.7-49.0 [facility] Comment on above: Performed By: #### 1 [id number], 7135605, 2714237, [id number] ####[address] [address] Hemoglobin (Bld) [Mass/Vol] 12.5 g/dL Low 13.5-17.5 [facility] Comment on above: Performed By: #### 1 [id number], 2784396, 6701971, 2421962 ####[place] [id number] MCH (RBC) [Entitic mass] 28.5 pg Normal 27.0-34.0 [facility] Comment on above: Performed By: #### 1 [id number], 8555544, 5977833, 2689696 ####[place] [address] MCHC (RBC) [Mass/Vol] 33.2 g/dL Normal 31.4-36.0 [facility] Comment on above: Performed By: #### 1 [id number], 5372139, 8727207, 6235251 ####[address] [address] MCV (RBC) [Entitic vol] 85.8 fL Normal 80.0-100.0 [facility] Comment on above: Performed By: #### 1 [id number], 9547632, 8209503, 0120152 ####[address] [address] Platelet mean volume (Bld) [Entitic vol] 10.3 fL Normal 6.4-10.8 [facility] Comment on above: Performed By: #### 1 [id number], 9644091, 3365100, 5380542 ####[address] [address] Platelets (Bld) [#/Vol] 164.0 E9/L Normal 150.0-500.0 [facility] Comment on above: Performed By: #### 1 9127971, 9459018, 9419603, 9348264 ####[facility] [address] [place] [address] RBC (Bld) [#/Vol] 4.4 E12/L Normal 4.3-5.9 [facility] Comment on above: Performed By: #### 1 [id number], 0471205, 9456284, 3922976 ####[facility] [address] [place] [address] WBC corrected for nucl RBC Auto (Bld) [#/Vol] 8.4 E9/L Normal 4.0-11.0 [facility] Comment on above: Performed By: #### 1 [id number], 7257653, 7630872, 9032709 ####[facility] [address] [place] [address] Capillary Glucose POCon Glucose [Mass/Vol] 161 mg/dL High 55-99 [facility] Comment on above: Result Comment: Gareth guerrero RN/ Performed By: #### 2 [id number] ####[facility] [address] [place] [address] Consent for Treatmenton Consent for Treatment [id number] [id number] Normal [facility] ED Clinical Summaryon 2022 ED Clinical Summary Normal [facility] ED Note-Physicianon 09-27-19 ED Note-Physician Normal [facility] Comment on above: Result Comment: Elec tronically Signed By: Shane Pan DO\.br\Date and Time Signed: 09/26/22 16:06 EDT ED Patient Education Noteon 09-26-2022 ED Patient Education Note Normal [facility] ED Patient Summaryon 023 ED Patient Summary Normal [facility] EMS Documentationon 09-27-19 EMS Documentation Normal [facility] EMS Documentation Normal [facility] Pre-Arrival Noteon 3 Pre-Arrival Note Normal [facility] UA With Cult Reflexon 2022 Bilirubin Ql (U) Negative Normal Negative [facility] Comment on above: Order Comment: can s traight cath if needed. Performed By: #### 1 [id number] ####[facility] [address] [place] [address] Clarity (U) CLEAR Normal Clear [facility] Comment on above: Order Comment: can s traight cath if needed. Performed By: #### 1 [id number] ####[facility] [address] [place] [address] Color (U) YELLOW Normal Yellow [facility] Comment on above: Order Comment: can s traight cath if needed. Performed By: #### 1 [id number] ####[facility] [address] [place] [address] Epithelial cells.squamous LM.HPF (Urine sed) [#/Area] 0-2 Normal 0-2 [facility] Comment on above: Order Comment: can s traight cath if needed. Performed By: #### 1 [id number] ####[facility] [address] [place] [address] Glucose Test strip (U) [Mass/Vol] Negative Normal Negative [facility] Comment on above: Order Comment: can s traight cath if needed. Performed By: #### 1 [id number] ####[facility] [address] [place] [address] Hemoglobin Ql (U) Negative Normal Negative [facility] Comment on above: Order Comment: can s traight cath if needed. Performed By: #### 1 [id number] ####[facility] [address] [place] [address] Ketones (U) [Mass/Vol] Negative Normal Negative [facility] Comment on above: Order Comment: can s traight cath if needed. Performed By: #### 1 [id number] ####[facility] [address] [place] [address] Florence-Graham.plasma/Florence-Graham.R BC (Bld) [Mass ratio] 0-3 Normal 0-3 [facility] Comment on above: Order Comment: can s traight cath if needed. Performed By: #### 1 [id number] ####[facility] [address] [place] [address] Nitrite Ql (U) Negative Normal Negative [facility] Comment on above: Order Comment: can s traight cath if needed. Performed By: #### 1 [id number] ####[address] [address] pH (U) 5.5 [pH] Invalid Interpretation Code 5.0-9.0 [facility] Comment on above: Order Comment: can s traight cath if needed. Performed By: #### 1 [id number] ####[address] [address] Protein (U) [Mass/Vol] Negative Normal Negative [facility] Comment on above: Order Comment: can s traight cath if needed. Performed By: #### 1 [id number] ####[address] [address] Specific gravity (U) [Rel density] 1.025 Invalid Interpretation Code 1.005-1.030 [facility] Comment on above: Order Comment: can s traight cath if needed. Performed By: #### 1 [id number] ####[address] [address] Type of Urine collection method Clean Catch Normal [facility] Comment on above: Order Comment: can s traight cath if needed. Performed By: #### 1 [id number] ####[facility] [address] [place] [address] Urobilinogen Qn (U) 1.0 {Lei'U}/dL Normal 0.0-1.0 [facility] Comment on above: Order Comment: can s traight cath if needed. Performed By: #### 1 [id number] ####[place] [address] [place] [address] WBC Auto Ql (U) Negative Normal Negative [facility] Comment on above: Order Comment: can s traight cath if needed. Performed By: #### 1 [id number] ####[facility] [address] [place] [address] WBC LM.HPF (Urine sed) [#/Area] 0-5 Normal 0-5 [facility] Comment on above: Order Comment: can s traight cath if needed. Performed By: #### 1 [id number] ####[facility] [address] [place] [address] XR Chest Single Viewon 09-26 XR Chest Single View Normal Fish er [facility] eGFRon 09-26-2022 GFR/1.73 sq M.predicted among non-blacks MDRD (S/P/Bld) [Vol rate/Area] 77 mL/min/1.73 m2 Normal >=59 [facility] Comment on above: Order Comment: Order added by Discern Expert. 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 Kidney failure is indicated at less than 15 mL/min/1.73m2. Performed By: #### 1 [id number], 9214691, 6086461, [id number] ####[facility] [address] [place] [address] Q - CULTURE,URINE,ROUTINEon 06-23-2021 CULTURE, URINE, ROUTINE SEE NOTE Normal [place] Administrative Support Specialist Comment on above: Order Comment: [facility] Testing performed at: QPT, [facility], [address] [place] [address], [address] [place] [address], [phone], Associate Director Qa: Archie iSnha MD [facility] Collection Date/Time: [facility] Results Received Date/Time: [facility] Reported Date/Time: Result Comment: CULT URE, URINE, ROUTINE Micro Number: [id number] Test Status: Final Specimen Source: Urine Specimen Quality: Adequate Result: Mixed genital alvin isolated. These superficial bacteria are not indicative of a urinary tract infection. No further organism identification is warranted on this specimen. If clinically indicated, recollect clean-catch, mid-stream urine and transfer immediately to Urine Culture Transport Tube. Performed By: #### 6 304R #### [facility] [address] [place] [address] Q - CULTURE,URINE,ROUTINEon 05-05-2021 CULTURE, URINE, ROUTINE SEE NOTE Normal [place] Administrative Support Specialist Comment on above: Order Comment: [facility] performed at: QPT, [facility], [address] [facility], [address] [place] [address], [phone], Associate Director Qa: Archie Sinha MD [facility] Collection Date/Time: [id number] [facility] Results Received Date/Time: [id number] [facility] Reported Date/Time: [id number] Result Comment: CULT URE, URINE, ROUTINE Micro Number: [id number] Test Status: Final Specimen Source: Urine Specimen Quality: Adequate Result: Growth of mixed alvin was isolated, suggesting probable contamination. No further testing will be performed. If clinically indicated, recollection using a method to minimize contamination, with prompt transfer to Urine Culture Transport Tube, is recommended. Performed By: #### 6 304R #### [facility] [address] [place] [address] Vital Signs Date Time Vital Sign Value Performing Clinician Facility 01-24-2023 10:00-0400 Hourly Rounding Mbanefo OJUKWU [facility] 01-24-2023 10:00-0400 Promise to Return Mbanefo OJUKWU [facility] 01-24-2023 09:00-0400 Hourly Rounding Mbanefo OJUKWU [facility] 01-24-2023 09:00-0400 Promise to Return Mbanefo OJUKWU [facility] 01-24-2023 08:29-0400 Diastolic blood pressure 73 mm[Hg] Mbanefo OJUKWU [facility] 01-24-2023 08:29-0400 Systolic blood pressure 157 mm[Hg] Mbanefo OJUKWU [facility] 01-24-2023 08:27-0400 Blood Pressure Location Mbanefo OJUKWU [facility] 01-24-2023 08:27-0400 Body temperature 97.7 [degF] Mbanefo OJUKWU [facility] 01-24-2023 08:27-0400 Diastolic blood pressure 73 mm[Hg] Mbanefo OJUKWU [facility] 01-24-2023 08:27-0400 Heart rate 82 /min Mbanefo OJUKWU [facility] 01-24-2023 08:27-0400 Respiratory rate 16 /min Mbanefo OJUKWU [facility] 01-24-2023 08:27-0400 Systolic blood pressure 157 mm[Hg] Mbanefo OJUKWU [facility] 01-24-2023 08:00-0400 Hourly Rounding Mbanefo OJUKWU [facility] 01-24-2023 08:00-0400 Promise to Return Mbanefo OJUKWU [facility] 01-24-2023 00:05-0400 Blood Pressure Location Mbanefo OJUKWU [facility] 01-24-2023 00:05-0400 Body temperature 97.7 [degF] Mbanefo OJUKWU [facility] 01-24-2023 00:05-0400 Diastolic blood pressure 76 mm[Hg] Mbanefo OJUKWU [facility] 01-24-2023 00:05-0400 Heart rate 83 /min Mbanefo OJUKWU [facility] 01-24-2023 00:05-0400 Mean blood pressure 99 mm[Hg] Mbanefo OJUKWU [facility] 01-24-2023 00:05-0400 SaO2% (BldA) [Mass fraction] 97 % Mbanefo OJUKWU [facility] 01-24-2023 00:05-0400 Systolic blood pressure 144 mm[Hg] Mbanefo OJUKWU [facility] 01-23-2023 19:36-0400 Heart rate 81 /min Mbanefo OJUKWU [facility] 01-23-2023 19:36-0400 SaO2% (BldA) [Mass fraction] 96 % Mbanefo OJUKWU [facility] 01-23-2023 19:36-0400 Body temperature 97.34 [degF] Mbanefo OJUKWU [facility] 01-23-2023 19:34-0400 Mean blood pressure 83 mm[Hg] Mbanefo OJUKWU [facility] 01-23-2023 13:00-0400 Body temperature 98.06 [degF] Mbanefo OJUKWU [facility] 01-23-2023 06:55-0400 Blood Pressure Location Mbanefo OJUKWU [facility] 01-23-2023 06:55-0400 Mean blood pressure 89 mm[Hg] Mbanefo OJUKWU [facility] 01-23-2023 06:55-0400 Respiratory rate 16 /min Mbanefo OJUKWU [facility] 01-23-2023 06:55-0400 SaO2% (BldA) [Mass fraction] 93 % Mbanefo OJUKWU [facility] 01-22-2023 23:00-0400 Body temperature 97.88 [degF] Mbanefo OJUKWU [facility] 01-22-2023 23:00-0400 Mean blood pressure 82 mm[Hg] Mbanefo OJUKWU [facility] 01-22-2023 23:00-0400 Respiratory rate 18 /min Mbanefo OJUKWU [facility] 01-22-2023 18:37-0400 Body temperature 97.52 [degF] Mbanefo OJUKWU [facility] 01-22-2023 18:36-0400 Mean blood pressure 81 mm[Hg] Mbanefo OJUKWU [facility] 01-22-2023 16:09-0400 Mean blood pressure 81 mm[Hg] Mbanefo OJUKWU [facility] 01-22-2023 16:07-0400 Body temperature 97.52 [degF] Mbanefo OJUKWU [facility] 01-22-2023 04:50-0400 Heart rate 77 /min Mbanefo OJUKWU [facility] 01-21-2023 21:09-0400 Heart rate 85 /min Mbanefo OJUKWU [facility] 01-21-2023 15:11-0400 Heart rate 78 /min Mbanefo OJUKWU [facility] 12-20-2022 09:37-0400 Hourly Rounding Maycol TSERING [facility] 12-20-2022 09:37-0400 Promise to Return Maycol TSERING [facility] 12-20-2022 09:06-0400 Heart rate 65 /min Maycol TSERING [facility] 12-20-2022 09:06-0400 Respiratory rate 20 /min Maycol TSERING [facility] 12-20-2022 09:06-0400 SaO2% (BldA) [Mass fraction] 92 % Maycol TSERING [facility] 12-20-2022 08:56-0400 Heart rate 61 /min Maycol TSERING [facility] 12-20-2022 08:56-0400 Respiratory rate 20 /min Maycol TSERING [facility] 12-20-2022 08:56-0400 SaO2% (BldA) [Mass fraction] 92 % Maycol TSERING [facility] 12-20-2022 08:51-0400 Hourly Rounding Maycol TSERING [facility] 12-20-2022 08:51-0400 Promise to Return Maycol TSERING [facility] 12-20-2022 08:50-0400 Hourly Rounding Maycol TSERING [facility] 12-20-2022 08:31-0400 Promise to Return Maycol TSERING [facility] 12-20-2022 07:29-0400 Heart rate 60 /min Maycolyasmine ARRIOLASLIN [facility] 12-20-2022 07:29-0400 SaO2% (BldA) [Mass fraction] 93 % Maycol TSERING [facility] 12-20-2022 07:28-0400 Body temperature 98.06 [degF] Maycol TSERING [facility] 12-20-2022 07:28-0400 Diastolic blood pressure 69 mm[Hg] Maycol TSERING [facility] 12-20-2022 07:28-0400 Mean blood pressure 94 mm[Hg] Maycol TSERING [facility] 12-20-2022 07:28-0400 Systolic blood pressure 143 mm[Hg] Maycolyasmine ARRIOLASLIN [facility] 12-20-2022 03:25-0400 Respiratory rate 16 /min Maycolyasmine ARRIOLASLIN [facility] 12-20-2022 00:15-0400 Body temperature 97.7 [degF] Maycolyasmine ARRIOLASLIN [facility] 12-20-2022 00:15-0400 Diastolic blood pressure 56 mm[Hg] Maycol TSERING [facility] 12-20-2022 00:15-0400 Systolic blood pressure 135 mm[Hg] Maycol TSERING [facility] 12-19-2022 19:28-0400 Body temperature 98.42 [degF] Maycol TSERING [facility] 12-19-2022 19:27-0400 Diastolic blood pressure 69 mm[Hg] Maycol TSERING [facility] 12-19-2022 19:27-0400 Mean blood pressure 90 mm[Hg] Maycol TSERING [facility] 12-19-2022 19:27-0400 Systolic blood pressure 134 mm[Hg] Maycol TSERING [facility] 12-19-2022 16:26-0400 gluc 111 mg/dL Maycol TSERING [facility] 12-19-2022 16:06-0400 Mean blood pressure 95 mm[Hg] Maycol TSERING [facility] 12-19-2022 16:00-0400 Body temperature 98.06 [degF] Maycol TSERING [facility] 12-19-2022 11:58-0400 gluc 201 mg/dL Maycol TSERING [facility] 12-19-2022 08:18-0400 gluc 93 mg/dL Maycol TSERING [facility] 12-19-2022 08:00-0400 Body temperature 98.6 [degF] Maycol TSERING [facility] 12-18-2022 05:46-0400 Blood Pressure Location Maycol TSERING [facility] 12-18-2022 05:46-0400 Heart rate 67 /min Maycol TSERING [facility] 12-18-2022 05:00-0400 Body temperature 98.42 [degF] Maycol TSERING [facility] 12-18-2022 05:00-0400 Mean blood pressure 78 mm[Hg] Maycol TSERING [facility] 12-18-2022 05:00-0400 Respiratory rate 20 /min Maycol TSERING [facility] 12-18-2022 04:00-0400 Mean blood pressure 77 mm[Hg] Maycol TSERING [facility] 12-18-2022 04:00-0400 Respiratory rate 21 /min Maycol TSERING [facility] 12-18-2022 03:00-0400 Mean blood pressure 75 mm[Hg] Maycol TSERING [facility] 12-18-2022 03:00-0400 Respiratory rate 22 /min Maycol TSERING [facility] 12-18-2022 00:09-0400 Heart rate 85 /min Maycol TSERING [facility] 12-17-2022 23:54-0400 Heart rate 86 /min Maycol TSERING [facility] 12-02-2022 14:00-0400 SaO2% (BldA) [Mass fraction] 93 % Maycol TSERING [facility] 12-02-2022 13:00-0400 Hourly Rounding Maycol TSERING [facility] 12-02-2022 13:00-0400 Promise to Return Maycol TSERING [facility] 12-02-2022 12:58-0400 Heart rate 85 /min Maycol TSERING [facility] 12-02-2022 12:58-0400 SaO2% (BldA) [Mass fraction] 88 % Maycol TSERING [facility] 12-02-2022 12:58-0400 Body temperature 97.7 [degF] Maycolyasmine ARRIOLASLIN [facility] 12-02-2022 12:58-0400 Diastolic blood pressure 75 mm[Hg] Maycol TSERING [facility] 12-02-2022 12:58-0400 Mean blood pressure 102 mm[Hg] Maycol TSERING [facility] 12-02-2022 12:58-0400 Systolic blood pressure 157 mm[Hg] Maycol TSERING [facility] 12-02-2022 12:10-0400 Hourly Rounding Maycol TSERING [facility] 12-02-2022 12:10-0400 Promise to Return Maycol TSERING [facility] 12-02-2022 11:30-0400 Hourly Rounding Maycol TSERING [facility] 12-02-2022 11:30-0400 Promise to Return Maycol TSERING [facility] 12-02-2022 08:00-0400 Blood Pressure Location Maycol TSERING [facility] 12-02-2022 08:00-0400 Diastolic blood pressure 79 mm[Hg] Maycol TSERING [facility] 12-02-2022 08:00-0400 gluc 127 mg/dL Maycol TSERING [facility] 12-02-2022 08:00-0400 Heart rate 76 /min Maycol TSERING [facility] 12-02-2022 08:00-0400 Respiratory rate 20 /min Maycol TSERING [facility] 12-02-2022 08:00-0400 Systolic blood pressure 141 mm[Hg] Maycolyasmine ARRIOLASLIN [facility] 12-02-2022 07:46-0400 Heart rate 66 /min Maycol TSERING [facility] 12-02-2022 07:46-0400 Respiratory rate 18 /min Maycol TSERING [facility] 12-02-2022 07:40-0400 Respiratory rate 18 /min Maycol TSERING [facility] 12-01-2022 23:32-0400 Body temperature 97.16 [degF] Maycol TSERING [facility] 12-01-2022 23:32-0400 Diastolic blood pressure 77 mm[Hg] Maycolyasmine ARRIOLASLIN [facility] 12-01-2022 23:32-0400 Mean blood pressure 101 mm[Hg] Maycol TSERING [facility] 12-01-2022 23:32-0400 Systolic blood pressure 130 mm[Hg] Maycol TSERING [facility] 12-01-2022 20:01-0400 Body temperature 97.16 [degF] Maycol TSERING [facility] 12-01-2022 20:01-0400 Mean blood pressure 101 mm[Hg] Maycol TSERING [facility] 12-01-2022 12:07-0400 Body temperature 97.52 [degF] Maycol TSERING [facility] 12-01-2022 07:30-0400 Body temperature 96.98 [degF] Maycol TSERING [facility] 12-01-2022 06:00-0400 gluc 110 mg/dL Maycol TSERING [facility] 11-30-2022 23:32-0400 FIO2 30 % Maycol TSERING [facility] 11-30-2022 20:04-0400 Mean blood pressure 98 mm[Hg] Maycol TSERING [facility] 11-30-2022 04:38-0400 Mean blood pressure 91 mm[Hg] Maycol TSERING [facility] 11-29-2022 20:16-0400 FIO2 30 % Maycol TSERING [facility] 11-29-2022 19:00-0400 Blood Pressure Location Maycol TSERING [facility] 11-29-2022 08:10-0400 FIO2 30 % Maycol TSERING [facility] 11-29-2022 04:08-0400 gluc 107 mg/dL Maycol TSERING [facility] 11-29-2022 04:08-0400 Mean blood pressure 80 mm[Hg] Maycol TSERING [facility] 11-29-2022 00:16-0400 Heart rate 48 /min Maycol TSERING [facility] 11-28-2022 22:55-0400 Respiratory rate 19 /min Maycol TSERING [facility] 11-28-2022 21:45-0400 Respiratory rate 18 /min Maycol TSERING [facility] 11-28-2022 20:45-0400 Respiratory rate 22 /min Maycol TSERING [facility] 11-28-2022 18:55-0400 SaO2% (BldA) [Mass fraction] 95.4 % Maycol CAGLE [facility] Auto SS 11-28-2022 17:13-0400 Heart rate 59 /min Maycol CAGLE [facility] 09-07-2022 01:10-0400 Diastolic blood pressure 53 mm[Hg] [facility] 09-07-2022 01:10-0400 Heart rate 70 /min [facility] 09-07-2022 01:10-0400 SaO2% (BldA) [Mass fraction] 96 % [facility] 09-07-2022 01:10-0400 Systolic blood pressure 135 mm[Hg] [facility] Encounters Encounter Date Encounter Type Care Provider Facility Start: 03-22-2024 End: 03-22-2024 [facility] Start: 03-21-2024 End: 03-21-2024 Telephone encounter Cortney Nicholson NP Work Phone: [facility] Start: 03-07-2024 End: 03-09-2024 [facility] Result Encounter Generic External Data Provider [facility] Unsolicited Start: 03-07-2024 End: 03-09-2024 [facility] Result Encounter Generic External Data Provider [facility] Unsolicited Start: 03-03-2024 End: 03-03-2024 [facility] Result Encounter Rebecca Alcala MD Work Phone: [facility] Unsolicited Start: 03-03-2024 End: 03-03-2024 [facility] Result Encounter Rebecca Alcala MD Work Phone: [facility] Unsolicited Start: 02-25-2024 End: 02-25-2024 [facility] Result Encounter Rebecca Alcala MD Work Phone: [facility] Unsolicited Start: 02-25-2024 End: 02-25-2024 Clinis[facility] Result Encounter Rebecca Alcala MD Work Phone: [facility] Unsolicited Start: 01-21-2024 End: 01-21-2024 ambulatory SHAWN ALEGRIA [facility] Start: 01-15-2024 Evaluation and management of inpatient HAYLEY Griffith [facility] Start: 01-14-2024 Evaluation and management of inpatient HAYLEY Griffith [facility] Start: 01-12-2024 Evaluation and management of inpatient ARIC MIRZA [facility] Start: 01-11-2024 Evaluation and management of inpatient DONNIE [facility] Start: 01-10-2024 [facility] Start: 01-10-2024 [facility] Start: 01-09-2024 Evaluation and management of inpatient [facility] Start: 01-09-2024 End: 01-09-2024 ambulatory UNKNOWN PROVIDER Facility:[facility] Start: 01-09-2024 End: 01-16-2024 Evaluation and management of inpatient YESENIA HUGHESBETH [facility] Start: 01-04-2024 End: 01-17-2024 Emergency department patient visit [facility] Start: 02-01-2023 ambulatory Robin Garcia acility:[facility] Start: 01-21-2023 End: 01-24-2023 Evaluation and management of inpatient [place] Facility[place] Start: 01-21-2023 End: 01-24-2023 Evaluation and management of inpatient Johnnieshahnaz OJUKWU [facility] Start: 01-15-2023 End: 01-16-2023 ambulatory Donta NOONAN Facility:CD:[id number] Start: 01-15-2023 End: 01-15-2023 Off-Site [facility] Start: 12-22-2022 End: 12-23-2022 ambulatory Donta NOONAN Facility:CD:[id number] Start: 12-22-2022 End: 12-22-2022 Off-Site [facility] Start: 12-18-2022 End: 12-20-2022 Evaluation and management of inpatient Maycol A TSERING Facility:[facility] Start: 12-17-2022 End: 12-20-2022 Evaluation and management of inpatient Maycol A TSERING [facility] Start: 12-14-2022 End: 01-16-2023 ambulatory Donta NOONAN Facility:CD:[id number] Start: 12-14-2022 End: 01-16-2023 In-Between Visit [facility] Start: 12-11-2022 ambulatory Donta NOONAN Facilit y:[facility] [place] Start: 12-03-2022 End: 12-03-2022 Off-Site [facility] Start: 12-03-2022 End: 12-04-2022 ambulatory Donta NOONAN Facility:CD:[id number] Start: 12-02-2022 End: 01-16-2023 ambulatory Donta [place]ATION Facility:[facility] Start: 11-30-2022 ambulatory Facility:[id number] Start: 11-30-2022 ambulatory Facility:[id number] Start: 11-29-2022 ambulatory Facility:[id number] Start: 11-29-2022 End: 12-02-2022 Evaluation and management of inpatient Maycol A TSERING Facility:[facility] Start: 11-28-2022 End: 12-02-2022 Evaluation and management of inpatient Maycol A TSERING [facility] Start: 11-26-2022 End: 11-27-2022 ambulatory Bienvenido Barroso Facility:[facility] Start: 11-26-2022 End: 11-26-2022 Patient encounter procedure [facility] Barroso [facility] Start: 09-26-2022 End: 09-28-2022 ambulatory Ganesh Minaya Facility:[facility] Start: 2022 End: 2022 ambulatory [facility] Emergenc y Triage, Treat and Transport Start: 2022 End: 2022 Emergency department patient visit [facility] Emergency Triage, Treat and Transport Comment on above: Arrived Procedures Date Procedure Procedure Detail Performing Clinician Start: 03-07-2024 BLOOD CULTURE 2 Generic External Data Provider Start: 03-07-2024 BLOOD CULTURE 1 Generic External Data Provider Start: 03-03-2024 ALL BASIC METABOLIC PANEL Rebecca Alcala MD Work Phone: Start: 03-03-2024 ALL PRO BNP Rebecca Hood MD Work Phone: Start: 02-25-2024 ALL CBC WITH AUTO DIFF Rebecca Alcala MD Work Phone: Start: 08-03-2016 Cataract Extraction with intraocular lens implant left eye [facility] Start: 10-22-2014 right cataract extra ction with intraocular lens placment, manual dilatation of the iris with a Malyugin ring [facility] heart stents [facility] multiple ear surgeries [facility] Plan of Treatment Date Care Activity Detail Author Start: 01-15-2025 Urine screening for protein Diabetes: Urine Protein Screening [facility] Start: 01-23-2024 Influenza vaccination Influenza Vacc ine (#1) [facility] Start: 01-02-2023 Hemoglobin A1c measurement Diabetes: Hemoglobin A1C [facility] Start: 10-15-2022 Medicare Annual Well ness (AWV) Medicare Annual Wellness (AWV) [facility] Start: 09-21-2022 Annual Wellness Visi t (G0439) Annual Wellness Visit (G0439) [facility] Start: 05-14-2018 Pneumococcal vaccination Pneum ococcal Vaccine(s) (65+ yrs) (2 - PPSV23 if available, else PCV20) [facility] Start: 1994 Shingles (RZV) Vacci ne (1 of 2) Shingles (RZV) Vaccine (1 of 2) [facility] Start: 1962 Hepatitis C screening Hepatitis C An tibody [facility] Start: 1962 Tetanus + diphtheria + acellular pertussis vaccine (product) Tdap Booster [facility] Start: 1954 Glaucoma screening Diabetes: R etinopathy Screening [facility] BLOOD CULTURE 1 BLOOD CULTURE 1 Lab Routine 03/07/2024 1:08 PM EDT [facility] BLOOD CULTURE 2 BLOOD CULTURE 2 Lab Routine 03/07/2024 1:28 PM EDT [facility] Immunizations Immunization Date Immunization Notes Care Provider [facility] 03-12-2022 SARS-CoV-2 (COVID-19 ) [id number] Donta NOONAN [facility] 02-04-2022 influenza virus vaccine, unspecified formulation Rebecca Alcala MD Work Phone: [facility] 03-17-2021 Influenza, injectabl e, high-dose seasonal, quadrivalent, 0.7 mL, preservative free (DVB=120) [facility] 07-15-2020 Pfizer (12+ yrs) SARS-COV-2 (COVID-19) vaccine, mRNA, spike protein, LNP, pres. free, 30 mcg/0.3mL dose (XWD=200) [facility] 06-26-2020 Pfizer (12+ yrs) SARS-COV-2 (COVID-19) vaccine, mRNA, spike protein, LNP, pres. free, 30 mcg/0.3mL dose (USU=412) [facility] 06-23-2019 influenza, high dose seasonal, preservative-free [facility] 05-14-2017 influenza, high dose seasonal, preservative-free [facility] 05-14-2017 pneumococcal conjuga te vaccine, 13 valent [facility] 04-04-2014 influenza, injectabl e, madin cee canine kidney, preservative free [facility] NEGATED: Highlighted row has not occurred!06-15-2014 pneumococcal polysaccharide vaccine, 23 valent [facility] Comment on above: Result Note: pt had vaccine last year per Payers Date Payer Category Payer Medicaid [id number] 2023 Self-pay 2022 Unknown [id number] 2022 Medicare [employer] D [employer] [id number] 2022-Present [address] [place] [address] Medicare [id number] 2022 Unknown [id number] 2022 Medicare (Managed Care) [employer] [id number] 2022 Unknown [employer] D [employer] [id number] 2022-Present [address] [place] [id number]. [id number] 1944 Unknown [id number] 2.16.840.1.644066.3.579.2. 356 1944 Unknown [id number] 2.16.840.1.522860.3.579.2. 356 1944 Unknown [id number] 2.16.840.1.287704.3.579.2. 356 1944 Unknown [id number] 2..840.1.200345.3.579.2. 72 1944 Unknown [id number] 2.16.840.1.773642.3.579.2. 1944 Unknown [id number] 2..840.1.820261.3.579.2. 1944 Unknown [id number] 2..840.1.886173.3.579.2. 1944 Unknown [id number] 2.840.1.464395.3.579.2. 1944 Unknown [id number] 2..840.1.132580.3.579.2. 1944 Unknown [id number] 2.840.1.653501.3.579.2 1944 Unknown [id number] 2.840.1.463690.3.579.2. 1944 Unknown [id number] .840.1.968130.3.579.2. 1944 Unknown [id number] 2.840.1.412513.3.579.2. 1944 Unknown [id number] .840.1.072486.3.579.2 1944 Unknown [id number] 2..840.1.253546.3.579.2. 1944 Unknown [id number] 2.840.1.684408.3.579.2. 73 1944 Unknown [id number] 2.840.1.705668.3.579.2. 1286 Social History Date Type Detail Facility Tobacco smoking stat [facility] Tobacco smoking consumption unknown [facility] Start: 1945 Sex Assigned At Not on file [facility] Start: 04-24-2021 End: 10-19-2022 Tobacco smoking status Ex-smoker (finding) [facility] Start: 11-25-2022 Sex Assigned At Male [facility] End: 05-24-1959 History of tobacco use Current smoker [facility] End: 05-24-1959 History of tobacco use Cigarette Smoker [facility] Start: 11-25-2022 Alcoholic beverage intake Lifetime non-drinker (finding) [facility] Start: 11-25-2022 History of Social function [facility] Start: 10-19-2022 Alcohol Comment Caffeine: 1-2 cups/day, occasional soda [facility] Medical Equipment Procedure Code Equipment Code Equipment Origin al Text Equipment Identifier Dates 1 each by Other route if needed (3x as needed daily). Use as instructed [id number] Start: 10-21-2022 Functional Status Date Assessment Result Facility 01-21-2023 Functional Status No [facility] 01-21-2023 Functional Status [facility] 12-18-2022 Functional Status N/A [facility] 12-17-2022 Functional Status [facility] 11-29-2022 Functional Status N/A [facility] 11-28-2022 Functional Status [facility] Clinical Notes 09-07-2022 to 03-22-2024 Telephone Encounter - Cortney Nicholson NP - 03/21/2024 9:22 AM EDTTelephone Encounter - Cortney Nicholson NP - 03/21/2024 9:22 AM EDT Note Date & Type Note Facility 03-22-2024 Note [facility] Subjective Clyde Humphrey is a 78 y.o. year old male patient being seen for heart block (S/p pacemaker insertion in Dec 2023) and Pacemaker Check (Per [employer] rep - He's had 12.7 hours of afib since Dec 2023, with a burden of < 1%. ) Patient Active Problem List Diagnosis Heart block Onychomycosis Pain in left toe(s) Pain in right toe(s) Type II diabetes mellitus with neurological manifestations (CMS/HCC) Pacemaker HPI Patient was transferred from [facility] to [facility] on 01/09/2024 because of complete heart block discovered in the [facility] upon checking of his vitals. He did not have any anginal symptoms or any signs or symptoms of congestive heart failure. He had mild elevation of troponin to 0.06. Echo showed hyperdynamic left ventricle without wall motion abnormalities. He underwent permanent pacemaker implantation by Dr. Welch. Due to absence of anginal symptoms and having normal left ventricular systolic function it was felt that the mild elevation of troponin is due to severe bradycardia. He has been in [facility]. He is on oxygen at 4 L/min and he is saturating 100%. He has been doing well. Denies any chest pain or orthopnea or paroxysmal nocturnal dyspnea or dizziness or palpitations or legs edema. His device was interrogated today showed normal function and 12.7-hour of A-fib since implant. The patient's caregiver who came with him told me that the patient is always supervised and he walks with a walker with assistance.. She denies any falling ROS All systems were reviewed and they were negative except for the positive findings noted above in the history Past Medical History: Diagnosis Date COPD (chronic obstructive pulmonary disease) ([facility]) Seizure ([facility]) Sleep apnea No past surgical history on file. No family history on file. Social History Tobacco Use Smoking status: Former Types: Cigarettes Allergies No Known Allergies Medications Current Outpatient Medications: acetaminophen (Tylenol) 500 mg tablet, Take 1 tablet by mouth every 6 (six) hours if needed for mild pain (1-3 pain score) or fever greater than or equal to 38 degrees Celsius., Disp: , Rfl: albuterol 2.5 mg /3 mL (0.083 %) nebulizer solution, Take 2.5 mg by nebulization every 6 (six) hours if needed for wheezing or shortness of breath., Disp: , Rfl: aspirin 81 mg EC tablet, Take 81 mg by mouth in the morning., Disp: , Rfl: Breo Ellipta 100-25 mcg/dose inhaler, , Disp: , Rfl: cetirizine (ZyrTEC) 10 mg tablet, Take 10 mg by mouth if needed each day for allergies., Disp: , Rfl: cholecalciferol (Vitamin D-3) 50 MCG (1999 UT) tablet, Take 2,000 Units by mouth in the morning., Disp: , Rfl: citalopram (CeleXA) 20 mg tablet, Take 20 mg by mouth in the morning., Disp: , Rfl: cyanocobalamin (Vitamin B-12) 1,000 mcg tablet, Take 1 tablet (1,000 mcg) by mouth in the morning for 98 doses. Do not start before January 16, 2024., Disp: 30 tablet, Rfl: 3 divalproex (Depakote) 500 mg EC tablet, Take 1 tablet (500 mg) by mouth every 8 (eight) hours for 283 doses. Do not crush, chew, or split., Disp: 90 tablet, Rfl: 3 furosemide (Lasix) 40 mg tablet, Take 40 mg by mouth two times daily., Disp: , Rfl: ipratropium-albuteroL (Duo-Neb) 0.5-2.5 mg/3 mL nebulizer solution, Take 3 mL by nebulization every 6 (six) hours., Disp: , Rfl: LORazepam (Ativan) 0.5 mg tablet, Take 0.5 mg by mouth if needed in the morning and at bedtime for anxiety., Disp: , Rfl: lovastatin (Altoprev) 40 mg 24 hr tablet, Take 40 mg by mouth at bedtime. Do not crush, chew, or split., Disp: , Rfl: metFORMIN XR (Glucophage-XR) 500 mg 24 hr tablet, Take 1,000 mg by mouth with breakfast and with evening meal. Do not crush, chew, or split., Disp: , Rfl: nystatin (Mycostatin) 100,000 unit/gram powder, Apply 1 Application topically three times daily., Disp: , Rfl: potassium chloride CR (Klor-Con M20) 20 mEq ER tablet, Take 20 mEq by mouth in the morning., Disp: , Rfl: spironolactone (Aldactone) 25 mg tablet, Take 0.5 tablets (12.5 mg) by mouth in the morning for 96 doses. Do not start before January 16, 2024. (Patient taking differently: Take 25 mg by mouth in the morning.), Disp: 15 tablet, Rfl: 3 tamsulosin (Flomax) 0.4 mg 24 hr capsule, Take 0.4 mg by mouth two times daily., Disp: , Rfl: apixaban (Eliquis) 2.5 mg tablet, Take 1 tablet (2.5 mg) by mouth two times daily., Disp: 60 tablet, Rfl: 11 Objective Visit Vitals BP 104/70 (BP Location: Left arm, Patient Position: Sitting) Pulse 68 Ht 1.651 m (5' 5 ) SpO2 100% Comment: on 4L BMI 34.16 kg/m??? Smoking Status Former BSA 2.07 m??? Physical exam: GENERAL: alert, well developed, in no acute distress. HEAD: atraumatic, normocephalic. EYES: XIOMARA, EOMI. NECK: trachea midline, no JVD present, no carotid bruits present. CARDIAC: S1, S2 present. RRR. No murmur, rubs, or gallops. RESPIRAT (more content not included)... [facility] 03-21-2024 Telephone encounter Note Rx for ativan is sent for this [facility] patient today. #90 tabs. [facility] 03-21-2024 Miscellaneous Notes Rx for ativan is sent for this [facility] patient today. #90 tabs. documented in this encounter [facility] 01-21-2024 Note Patient underwent [employer] pacemaker implantation due to third-degree AV [...] with cardiology in 2 months [facility] 01-16-2024 Note DUAL CHAMBER PACEMAK ER IMPLANT PROCEDURE NOTE DATE OF PROCEDURE: 01/10/24 PERFORMING PHYSICIAN: Dr. Reno Welch CONSENT: Patient LOCATION: EP Lab PROCEDURE PERFORMED: 1. Implantation of pacemaker ([employer]) 2. Ultrasound guided venous access INDICATIONS: 1. 3rd degree AV block 2. Junctional bradycardia PROCEDURAL SEDATION: Versed and Fentanyl. Moderate sedation was administered by the sedation nurse under my supervision and noted in the CVL log. Intraprocedural face to face sedation time: 71min. Monitoring: Cardiac telemetry, Blood pressure, continuous pulse oxymetry. FLUOROSCOPY TIME: 2.3min/ 29mGray. EBL: 15cc SPECIMEN REMOVED: None PREPARATION: 78-year-old man who is transferred from the [facility] for complete heart block. This was discovered at the [facility] where he [facility] when the nurses noted severe bradycardia. His EKG shows complete heart block with a junctional escape rhythm with a previously known right bundle branch pattern. Decision was made to proceed with dual chamber PPM. PROCEDURAL DETAILS: Patient was placed in trendelenberg position and ultrasound was used to evaluate the patency of left axillary vein and for venous access. Left axillary venous access was obtained using modified seldinger technique using a 5 Finnish micro-puncture needle on two occasions and 0.35 wires were placed. Local infiltration of 1% Lidocaine was performed, and an incision was created in the left upper chest. Dissection was then performed using cautery down to the fascial plane above the muscle. The belly of the pectoralis was identified and with gentle blunt dissection a small pocket was created for the device above the muscle. 6 Finnish Safesheaths were placed over the wire. An active fixation [employer] pacing lead was then delivered through the 6Fsheath to the right ventricle. After confirmation of lead position on orthogonal views (GOMEZ and BENGALI) to confirm septal position, the screw was activated, and the lead was placed in the right ventricular mid cavity towards the septum. After confirmation of good sensing parameters, injury pattern and pacing thresholds, 10V pacing was done and no diaphragmatic stimulation was noted. It was then secured in the pocket using three 1-0 Silk sutures. Then an active fixation [employer] lead was delivered through the 6Fsheath to the right atrial appendage. After confirmation of lead position on orthogonal views (GOMEZ and BENGALI), the screw was activated. Good sensing parameters, injury pattern and pacing thresholds, the lead was then tested using Lambert's maneuver. 10V pacing was done and no diaphragmatic stimulation was noted. It was then secured in the pocket using three 1-0 Silk sutures. Pocket hemostasis was secured, and it was then copiously and vigorously irrigated with antibiotic solution. The leads were attached to the generator and then wrapped under the device and the device was tacked to underlying muscle and placed in the pocket. The pocket was closed in layers: subcutaneous layer using 2-0 Vicryl; skin using 3-0 absorbable monofilament suture. Glue was applied and Tegaderm dressing was placed on top. Lead parameters were then rechecked through the device as noted below. The patient was returned to the short stay room for post procedural observation. No immediate procedural complications were noted. POST PROCEDURE EXAM: Patient was hemodynamically stable. COMPLICATIONS: None. IMPRESSION: 1. Successful dual chamber pacemaker with excellent pacing and sensing parameters. RECOMMENDATIONS: 1. Occlusive dressing to be removed after 2 weeks. 2. Do not wet the incision for 7 days. 3. No lifting heavy weights using arm on the same side x 3weeks 4. Do not lift elbow above the shoulder on the same side for 4-6 weeks. 5. No driving for 1 month. 6. F/u in device clinic 1 week from discharge or sooner for any concerns. Reno Welch MD Cardiac Electrophysiology [facility] 01-16-2024 Note Physical Therapy Physical Therapy Patient Name: Clyde Humphrey Today's Date: 01/16/2024 Admit Date: 01/09/2024 Time: 8:55 AM Attempted PT treatment today however RN reports patient being agitated at this time, will check back later as able. No charges associated with this encounter. [facility] 01-16-2024 Note discharge planning: to [facility] 0841 Insurance Approval Letter received for Patient to discharge to [facility]; Discharge Order in place; notice of insurance approval and discharge order sent to SNF, via [employer] system, with request to confirm they have a bed available for Patient to return to them today (awaiting reply) 1129 communication received from [facility], via [employer] system: Yes please call report to [phone] station 2. Please FAX wa med list to [phone] as I am not in the building today ^bedside RN and [facility] notified of bed available today 1135 Patient resting in bed, va underwriter unable to wake ([phone]) PC to Patient's spouse, to notify of discharge order and bed available and transport arrangements; no answer; vm left with contact information and request for return call 1152 AVS faxed to [facility] [phone] ([phone]) PC to Patient's spouse, to notify of discharge order and bed available and transport arrangements; no answer; second voicemail not left ([phone]) PC to Patient's daughter Amy, to notify of discharge order and transport time; Amy stating Patient's spouse lives at [facility] as well, so would not be answering her phone; va underwriter notified Amy of 1:30p pickup time for transportation to return to [facility] 1206 AVS and transport time sent to [facility] via [employer] system Discharge Transportation Packet placed with Patient's physical charte Transportation scheduled for 1:30p pickup Nurse call report to [facility] [phone] Station 2 ^bedside RN, [facility] notified [facility] 01-16-2024 Note Hospital Medicine Daily Progress Note - 01/16/2024 7:25 AM; Room: [address] [place] [address] Admission: 01/09/2024 1:24 AM; Length of stay: 7 days THE HOSPITALIST TEAM PREFERS TO USE [employer] CHAT FOR COMMUNICATION 7AM-7PM. IF I DO NOT RESPOND WITHIN 15 MINUTES, PLEASE PAGE ME/CALL THROUGH THE HAND BOOTMAKER. FROM 7PM-7AM, PLEASE PAGE [phone](COVR) Code Status: Full Code Barriers to Discharge: None Expected Discharge Date: 01/15 Discharge Destination: [facility] facility Overview Patient is seen for evaluation [...] , FREET4 , CORTISOL , FEV1 , [id number] , DLCO , RVSP , HDL , LDL Lab Results Component Value Date [id number] 179 (L) 01/13/2024 IRON 37 (L) 01/13/2024 [...] Santiago MD. Discharge Planning Expected Discharge Disposition: [facility] Facility (03) PT Disc (more content not included)... [facility] 01-15-2024 Note Hospital Medicine Discharge Summary Final Discharge Diagnosis: Third degree heart block Admission Diagnosis: Heart block [I45.9] Hospital course: 78yoM with history of dementia, seizure disorder, COPD, hypertension who was admitted to [facility] on 01/08 for complete heart block. Patient initially presented to [facility] for multiple episodes of presyncope and heart rate was noted to be in 30s. Confirmed complete AV disassociation and the patient was transferred to [facility] for EP evaluation. He was initially sent [...] During Admission: Cardiology and Trauma Dear Dr. MD aMc Albert is advised to follow up with you within 1-2 weeks. Items to follow up in ambulatory setting: Follow up with Cardiology 01/16 for PPM evaluation Follow-up with: Cardiology Scheduled appointments: Future Appointments Date Time Provider Department Center 01/17/2024 1:30 PM [facility] CV CLINIC DEVICE CHECK HVC CARD [place] [facility] Your medication list START taking these [...] Medications These medications were sent to [facility] - [place], [place] - [address], [facility] [address] divalproex 500 mg EC tablet spironolactone 25 mg tablet Information about where to get these medications is not yet available Ask your nurse or doctor about these medications cyanocobalamin 1,000 mcg tablet doxycycline 100 mg capsule Clyde has No Known Allergies. Disposition: Prison Facility (03) Discharge Condition: Stable Code Status: Full Code [...] 01/15/24 (more content not included)... [facility] 01-14-2024 Note 01/14/24 1300 Post Acute Info Authorization started for SNF () Facility name [facility] When was authorization started? 01/13/24 What time was authorization started? 1038 Reference number for submission ([id number]) Determination Approved [facility] staff notified Sherley Rivers When was authorization received? 01/14/24 What time was authorization received? 1302 When does authorization ? 01/21/24 How are we submitting authorization Website Portal What insurance are we submitting through ([employer]) Approved authorization for [facility], [facility] notified. [facility] 01-14-2024 Note Hospital Medicine Daily Progress Note - 01/14/2024 11:18 AM; [facility] Admission: 01/09/2024 1:24 AM; Length of stay: 5 days THE HOSPITALIST TEAM PREFERS TO USE [employer] CHAT FOR COMMUNICATION 7AM-7PM. IF I DO NOT RESPOND WITHIN 15 MINUTES, PLEASE PAGE ME/CALL THROUGH THE HAND BOOTMAKER. FROM 7PM-7AM, PLEASE PAGE [phone](COVR) Code Status: Full Code Barriers to Discharge: Precert Expected Discharge Date: 01/13 Discharge Destination: [facility] facility Overview Patient is seen for evaluation [...] , FREET4 , CORTISOL , FEV1 , WQS1JDZ , DLCO , RVSP , HDL , LDL Lab Results Component Value Date [id number] 179 (L) 01/13/2024 IRON 37 (L) 01/13/2024 TIBC 244 (L) 01/13/2024 Imaging Electrophysiology procedure Narrative: DUAL CHAMBER PACEMAKER IMPLANT PROCEDURE NOTE DATE OF PROCEDURE: 01/10/24 PERFORMING PHYSICIAN: Dr. Reno Welch CONSENT: Patient LOCATION: EP Lab PROCEDURE PERFORMED: 1. Implantation of pacemaker ([employer]) 2. Ultrasound guided venous access INDICATIONS: 1. 3rd degree AV block 2. Junctional bradycardia PROCEDURAL SEDATION: Versed and Fentanyl. Moderate sedation was administered by the sedation nurse under my supervision and noted in the (more content not included)... [facility] 01-14-2024 Note Occupational Therapy Occupational Therapy Treatment Patient Name: Clyde Humphrey : 1945 Today's Date: 01/14/2024 Problem List Patient Active Problem List Diagnosis Heart block Pain: Objective General Visit Information: OT Last Visit OT Received On: 01/14/24 General Subjective: RN reports pt is appropriate for session. On arrival pt [place] DEE-NI' but use of writing communication for pt [...] five minutes 01/12/24 02/09/24 -- [facility] 01-13-2024 Note Speech Job Honer ology Speech/Language Pathology Clinical Swallow Assessment Rx: [...] Called and spoke to Sierra RN at [facility] and she reported he always wears dentures and does not having swallowing issues prior to this admission at [facility]. Baseline Assessment Temperature Spikes Noted: Not applicable History of Intubation: No Behavior/Cognition: Alert, Cooperative (very hard of hearing due to not having his hearing aides in hospital) Dentition: Edentulous (per [facility] ECF, pt wears dentures, but they are not at hospital) Patient Positioning: Upright in bed Baseline Vocal Quality: Normal Volitional Swallow: Within Functional Limits Diet Level Prior to exam: Regular diet with thin liquid No family present for exam History of Present Illness Clyde Humphrey is a 78-year-old gentleman with past medical history significant for dementia has been transferred from [facility] due to high degree AV block. The patient is unable to answer questions appropriately due to his dementia so history was only taken by the signout received from [facility]. The patient was noted to have multiple episodes of presyncope over the last few days and today his heart rate was noted to be in 30s upon their initial evaluation. EKG showed a complete A-V dissociation after which thick reached out to [facility] cardiology for possible pacemaker placement. Due to significant bradycardia the patient is being transferred to [facility] ICU for close hemodynamic monitoring and management. [...] Recommendations Duration of Treatment: 15 [facility] 01-13-2024 Note 01/13/24 1038 Post Acute Info Authorization started for SNF (03) Facility name [facility] Facility When was authorization started? 01/13/24 What time was authorization started? 1038 Reference number for submission ([id number]) How are we submitting authorization Website Portal What insurance are we submitting through ([employer]) Submitted precert request for [facility] SNF, OTM to follow. [facility] 01-13-2024 Note Attempted to call Wi pee Dooley to confirm return to [facility] SNF as well as get consent to start pre-cert with no answer and going to voicemail. Called listed aidan Parks [phone] who answered and stated that Soumya has stage 4 cancer and is also currently at [facility] and also cited that her cognition has declined substantially. Aidan Parks also cited that she is pt's HCPOA. Obtained confirmation of intent to return and also to start the pre-cert to return to [facility]. Requested OTM to start pre-cert and updated AVS. UPDATE 11:05AM- [facility] confirmed that aidan Parks is an alternate HCPOA and also advised it would be better to contact her. [facility] 01-13-2024 Note Hospital Medicine Daily Progress Note - 01/13/2024 8:09 AM; Room: [address] [place] [address] Admission: 01/09/2024 1:24 AM; Length of stay: 4 days THE HOSPITALIST TEAM PREFERS TO USE [employer] CHAT FOR COMMUNICATION 7AM-7PM. IF I DO NOT RESPOND WITHIN 15 MINUTES, PLEASE PAGE ME/CALL THROUGH THE HAND BOOTMAKER. FROM 7PM-7AM, PLEASE PAGE [phone](COVR) Code Status: Full Code Barriers to Discharge: Precert Expected Discharge Date: 01/13 Discharge Destination: [facility] facility Overview Patient is seen for evaluation [...] BID heparin (porcine), 5,000 Units, subcutaneous, q8h PINEDA metFORMIN XR, 1,000 mg, oral, BID with [...] , FREET4 , CORTISOL , FEV1 , ZXK8ZWC , DLCO , RVSP , HDL , LDL No results found for: EBKSFPFY31 , IRON , TIBC , C3 , [...] intracranial (more content not included)... [facility] 01-12-2024 Note Daughter, felipe Parks via phone concerning pt transfer to [facility] from MICU and pt status improvements/plan of care. [facility] 01-12-2024 Note Attestation signed by Cody Richardson MD at 01/12/2024 11:36 PM I reviewed the salient portions of the patient history. I have seen and examined the patient during rounds with the resident/fellow. I repeated the guajardo components of the exam. Agree with the noted assessment and plan. Cody Richardson MD [facility]icians Pulmonary and Critical Care Medicine Pulmonary Progress Note Patient - Clyde Humphrey Age - 78 [facility]. [facility] 1945 [id number] Date of Admission - 01/09/2024 1:24 AM HPI/Hospital Course Clyde Humphrey is a 78-year-old gentleman with past medical history significant for dementia has been transferred from [facility] due to high degree AV block. The patient is unable to answer questions appropriately due to his dementia so history was only taken by the signout received from [facility]. The patient was noted to have multiple episodes of presyncope over the last few days and today his heart rate was noted to be in 30s upon their initial evaluation. EKG showed a complete A-V dissociation after which thick reached out to [facility] cardiology for possible pacemaker placement. Due to significant bradycardia the patient is being transferred to [facility] ICU for close hemodynamic monitoring and management. [...] eyes (more content not included)... [facility] 01-12-2024 Note Physical Therapy Physical Therapy Evaluation Patient Name: Clyde Humphrey : 1945 Today's Date: 01/12/2024 Patient is a 78 y/o male [facility] with heart block. Episodes of pre-syncope and [...] Diagnosis Date COPD (chronic obstructive pulmonary disease) ([facility]) Seizure ([facility]) Sleep apnea No past surgical history on [...] time, Follows one step commands with repetition ([place] DEE-NI' makes command following difficult) General Assessment General Assessment Hearing: Significantly [place] DEE-NI' - best communication by writing Home Living Home Living Type of Home: long term Home Adaptive Equipment: Walker rolling, Wheelchair-power Prior Level of Function Prior Function Level of [place]: Needs assistance with ADLs, Needs assistance with [...] He (more content not included)... [facility] 01-12-2024 Note Occupational Therapy Occupational Therapy Evaluation Patient Name: Clyde Humphrey : 1945 Today's Date: 01/12/2024 Time In: 1015 Time Out: 1039 Clyde Humphrey is a 78-year-old gentleman with past medical history significant for dementia has been transferred from [facility] due to high degree AV block. PPM 01/10/24 General Subjective: friendly and cooperative but not a reliable historian, he is very [place] DEE-NI' but able to read Patient Active Problem List Diagnosis Heart block Past Medical History: Diagnosis Date COPD (chronic obstructive pulmonary disease) ([facility]) Seizure ([facility]) Sleep apnea No past surgical history on [...] redirect Memory: Decreased short term memory, Decreased usp memory Communication: Intact General Assessment General Assessment Hearing: (very [place]) Home Living Home Living Type of Home: long term Home Adaptive Equipment: Wheelchair-power Prior Level of Function Prior Function Level of [place]: Needs assistance with ADLs, Needs assistance with [...] Eating meals?: None (Independent) Total Score OT [facility]: 14 Assessment/Plan OT Assessment OT Impairments: Decreased ADL status, Decreased endurance, Decreased functional mobility 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 [facility] 01-12-2024 Note Phoned pt's to discuss DC plan to return to [facility]. [facility] is requesting precert to accept pt back under skilled. Await call back, Await PT/OT recommendations. [facility] 01-12-2024 Note Updates sent to [facility] 01-11-2024 Note Attestation signed by Cody Richardson MD at 01/11/2024 9:49 PM I reviewed the salient portions of the patient history. I have seen and examined the patient during rounds with the resident/fellow. I repeated the guajardo components of the exam. Agree with the noted assessment and plan. Cody Richardson MD [facility] Pulmonary and Critical Care Medicine Pulmonary Progress Note Patient - Clyde Humphrey Age - 78 y.o. - 1945 N [facility] [id number] [id number] Date of Admission - 01/09/2024 1:24 AM HPI/Hospital Course Clyde Humphrey is a 78-year-old gentleman with past medical history significant for dementia has been transferred from [facility] due to high degree AV block. The patient is unable to answer questions appropriately due to his dementia so history was only taken by the signout received from [facility]. The patient was noted to have multiple episodes of presyncope over the last few days and today his heart rate was noted to be in 30s upon their initial evaluation. EKG showed a complete A-V dissociation after which thick reached out to [facility] cardiology for possible pacemaker placement. Due to significant bradycardia the patient is being transferred to [facility] ICU for close hemodynamic monitoring and management. [...] Intake/Output Summary (Last 24 hours) at 01/11/2024 4282 Last data filed at 01/11/2024 1253 Gross [...] requested (more content not included)... [facility] 01-11-2024 Note Problem: Depression Goal: [...] the shift include Stable hemodynamics [facility] 01-11-2024 Note Attestation signed by Guilherme Patrick MD at [...] personal documentation from me. Guilherme Patrick MD Cardiology Progress Note Subjective Subjective: S/p [employer] DC-PPM. No overnight events. Mentation appears [...] QT Interval 514 QTC CALCULATION(BAZETT) 439 P Brighton -25 R-Brighton -30 T Wave Brighton -28 Impression Sinus tachycardia with complete heart [...] (TTE) complete Result Date: 01/10/2024 1 1 [facility] Heart Station [address] [place] [address] [phone] (fax) Echocardiogram-[facility] Name: CLYDE HUMPHREY Study Date: 01/10/2024 01:43 PM B/P: 107 mmHg/64 mmHg HR: 52 bpm Date of : 1945 Location: [facility] Height: 65 in. Age: 78 year(s) Patient Room: 3235 Weight: 218 lb. Gender: Male Patient Status: InPt BSA: 2.05 m2 Indication: Complete heart block, d (more content not included)... [facility] 01-10-2024 Note Attestation signed by Cody Richardson MD at [...] services was 36 minutes. Cody Richardson MD [facility] Pulmonary and Critical Care Medicine Pulmonary Progress Note Patient - Clyde Humphrey Age - 78 y.o. - 1945 [id number] Date of Admission - 01/09/2024 1:24 AM HPI/Hospital Course Clyde Humphrey is a 78-year-old gentleman with past medical history significant for dementia has been transferred from [facility] due to high degree AV block. The patient is unable to answer questions appropriately due to his dementia so history was only taken by the signout received from [facility]. The patient was noted to have multiple episodes of presyncope over the last few days and today his heart rate was noted to be in 30s upon their initial evaluation. EKG showed a complete A-V dissociation after which thick reached out to [facility] cardiology for possible pacemaker placement. Due to significant bradycardia the patient is being transferred to [facility] ICU for close hemodynamic monitoring and management. [...] hypoattenuation (more content not included)... [facility] 01-10-2024 Note Consulted with notif ication that patient is from a [facility]. Has dementia. No family at bedside. Appears patient may be from [facility] - message left for spouse, Soumya. Preliminary referral made to [facility] to confirm. [facility] 01-10-2024 Note Problem: Depression Goal: [...] the shift include Stable hemodynamics [facility] 01-10-2024 Note Attestation signed by Guilherme Patrick MD at [...] the documentation by the Cardiovascular Fellow Dr Nourhan Chaaban. Please note there may be an additional personal documentation from me. Guilherme Patrick MD Cardiology Progress Note Subjective Subjective: No acute [...] QT Interval 514 QTC CALCULATION(BAZETT) 439 P Brighton -25 R-Brighton -30 T Wave Brighton -28 Impression Sinus tachycardia with complete heart [...] Maintain telemetry Optimize electrolytes Trang Eagle MD Policy Advisor - PGY5 [facility] 01-09-2024 Note Attestation signed by Donnie Cavazos MD at 01/09/2024 1:28 PM I was present during the critical portion of the procedure and immediately available to assist Arterial line placement PATIENT: Clyde Humphrey DATE: 01/09/2024 PROCEDURE HAND BOOTMAKER: Art Suh MD ATTENDING PHYSICIAN: Donnie Cavazos [...] Pulmonary/Critical Care 01/09/2024 5:45 AM [facility] 01-24-2023 Evaluation + Plan note Extrac gi from: Title:Discharge Note Author:New Johnson DO Date:01/24/23 Discharge To, Anticipated II - Prison Unit Discharged to - Home independently Transported [...] When Contact Information Dharmesh POTTS, Bienvenido Chavira, [address] [place] [address]- Additional Instructions: Dementia, Bllw-uk-Ydqh Extracted from: Title:APSO Note Author:New Johnson DO Gerry e:01/23/23 1. Generalized weakness (R53 .1: Weakness) IV fluids, trend BUN and creatinine PT/OT Currently awaiting pre-CERT for placement 2. Alzheimers disease (G30.9: Alzheimer's disease, unspecified) Continue Seroquel 3. CAD in [place] artery (I25.10: Atherosclerotic heart disease of [place] coronary artery without angina pectoris) Continue aspirin [...] (I10: Essential (primary) hypertension) Stable, monitor 8. BENAJMIN (obstructive sleep apnea) (G47.33: Obstructive sleep apnea [...] Ordered: Initial Hospital Care/Day Moderate 55 Minutes 57481 Sbsq Hospital Care/Day Straight Fwd 25 Minutes 23166 2. Alzheimers disease (G30.9: Alzheimer's disease, unspecified) Continue Seroquel 3. CAD in [place] artery (I25.10: Atherosclerotic heart disease of [place] coronary artery without angina pectoris) Continue aspirin [...] (G30.9: Alzheimer's disease, unspecified) 3. CAD in [place] artery (I25.10: Atherosclerotic heart disease of [place] coronary artery without angina pectoris) 4. COPD [...] Ordered: Initial Hospital Care/Day Moderate 55 Minutes 51273 2. Alzheimers disease (G30.9: Alzheimer's disease, unspecified) Continue Seroquel 3. CAD in [place] artery (I25.10: Atherosclerotic heart disease of [place] coronary artery without angina pectoris) Continue aspirin [...] Pain, Routine, Start date 01/21/23 17:51:00 EDT, 08/31/23 17:51:00 EDT heparin, 5,000 unit(s) = 1 [...] improving gait and building on physical strength. [facility]09-03-2023 IndiaMckitrick HospitalComment on above:Result Comment: Electronically Signed By: New Johnson DO\.br\Date and Time Signed: 01/24/23 09:57 [id number] Hospital Discharge instructions Patient Education 01/24/2023 09:54:03 Dementia, Xukt-cb-Ncxy Dementia Dementia is a condition that affects [...] Follow these instructions at home: Medicines Take dkhp-svf-bnjwedo and prescription medicines only as told by [...] find more information Alzheimer's Association: www.alz.org National [place] on Aging: www.susie.nih.gov/alzheimers World Health Organization: www.who.int [...] the National Suicide Prevention Lifeline at or 308 in the [place] This is open 24 hours a day. Text the Crisis Text Line at 905557. Summary Dementia often affects memory and thinking. [...] provider. Document Revised: 12/03/2021 Document Reviewed: 09/23/2020 [employer] Patient Education 2022 DirectRM. Follow Up Care 01/21/2023 15:06:04 With:Dharmesh POTTS, Bienvenido Chavira, [facility] Address: [address] [place] [id number] When: Unknown [facility]08-31-2023 NoteMckitrick HospitalComment on above:Result Comment: Electronically Signed By: New Johnson DO.br\Date and Time Signed: 01/21/23 17:53 [id number] Evaluation + Plan note Extracted from: Title:Discharge Note Author:MICHAEL POTTS, Jamir Gerry e:12/20/22 stable Discharge To, Anticipated II - Prison Unit Discharged to - shelter unit SNF Discharge Diet(s): Calorie Controlled- 1800 Calorie Diet (12/20/22 09:46:00) Prescriptions alprazolam 0.5 mg Tab, 0.5 mg= 1 tab(s), Oral, Daily, PRN aspirin 81 mg Oral EC Tab, 81 mg= 1 tab(s), Oral, Daily Augmentin 875 mg oral tablet, 1 tab(s), Oral, q12hr ergocalciferol 50,000 intl units Cap, 96919 International_Unit= 1 cap(s), Oral, q7day furosemide 40 [...] Oral, BID With When Contact Information Bienvenido Dharmesh [address] [place], [place] [address] (1) Additional Instructions: Call for followup appointment [...] ultimately benefit 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 Coronary artery disease (I25.10: Atherosclerotic heart disease of [place] coronary artery without angina pectoris) Patient had [...] recent hospitalization has been titrated at the [facility]. He was recently placed on Xanax, discontinue that at this time. Awaiting verification of meds from the [facility] 15. Encounter for deep vein thrombosis (DVT) [...] patient's RN it was advised that the [facility] was planning on sending a copy of [...] Tests Pending * Legionella Antigen Urine 12/18/22 [facility]07-30-2023 NoteCRM entered the room to discuss dc planning. PCP, DME and insurance discussed. Patient is alert andinvolved in plan of care. Contact information given and whiteboard updated. Pt will dc to [facility] room 17 today. CRM to follow.Mckitrick HospitalComment on above:Result Comment: Electronically Signed By: Natalie Grant\Date and Time Signed: 12/20/22 11:52 [id number] AnabellaR [facility] Trauma CenterComment on above: Result Comment: Electronically Signed By: Leslie MCKINNEY MD.candice\Date and Time Signed: 12/20/22 10:[id number] Hospital Discharge instructions Patient Education 12/20/2022 09:48:09 [...] a long-term care facility, such as a [facility]. Having your kidneys filtered through hemodialysis in [...] hard liquor (44 mL). General instructions Take ujxd-ehe-qhyttfq and prescription medicines as told by your [...] are not available, use an alcohol-based hand batch and furnace operator. ?Make sure your health care providers wash [...] and water or with alcohol- based hand batch and furnace operator before and after caring for sick people. [...] bacteria common in health care settings. Take dazs-zfg-zlmbiit and prescription medicines as told by your [...] provider. Document Revised: 05/31/2022 Document Reviewed: 05/31/2022 [employer] Patient Education 2022 DirectRM. Follow Up Care 12/17/2022 23:50:19 With:Bienvenido Barroso Address: [address] [place] [address]- Business (1) When: Unknown Comments:Call for followup appointment [facility]07-28-2023 [facility] System[facility]:Result Comment: Electronically Signed By: Maycol CAGLE DO\.br\Date and Time Signed: 12/18/22 06:27 [id number] NoteMckitrick HospitalComment on above:Result Comment: Electronically Signed By: Lizeth Cedeno MD\.br\Date and Time Signed: 12/02/22 12:28 [id number] Evaluation + Plan noteExtracted from: Title:Discharge Note Author:Lizeth Cedeno MD ate:12/02/22 Stable Discharge To, Anticipated II - Prison Unit Discharged to - Home with family care Transported by, Anticipated - Family Discharge Diet(s): Other: Limit fluids to 1800 ml/day (12/02/22 12:23:00) Prescriptions aspirin 81 mg Oral EC Tab, 81 mg= 1 tab(s), Oral, Daily ergocalciferol 50,000 intl units Cap, 76192 International_Unit= 1 cap(s), Oral, q7day furosemide 40 [...] When Contact Information Joanie Jiménez [facility] [address] [place] [address]- Business (1) Additional Instructions: HFpEF Dave Dickeydict [address] [place] [address]- Business (1) Additional Instructions: Cog impariment, Alzhiemer's Bienvenido Barroso In [address] [place] [address]- Business (1) Additional Instructions: Extracted from: Title:UPDATE [...] of CAD and previous coronary interventions in [place] with no indication of recurrent CAD, would [...] [facility] Hospital Care/Day High 50 Minutes 78339 2. Acute on chronic diastolic heart failure (I50.33: Acute on chronic diastolic (congestive) heart failure) c/w spironolactone and lasix IV 40mg qd -strict I/Os and daily weight - last echo was done 2014 with EF of 50%. will recheck this visit Ordered: [facility] Hospital Care/Day High 50 Minutes 81964 3. COPD without exacerbation (J44.9: Chronic obstructive pulmonary disease, unspecified) Ordered: [facility] Hospital Care/Day High 50 Minutes 26148 4. Weakness (R53.1: Weakness) -pt/ot Ordered: [facility] Hospital Care/Day High 50 Minutes 63072 5. Sinus bradycardia (R00.1: Bradycardia, unspecified) baseline. last EKG similar. -pt had decreased HR overnight so BB was held. -continue to monitor on tele Ordered: [facility] Hospital Care/Day High 50 Minutes 28667 6. Coronary artery disease (I25.10: Atherosclerotic heart disease of [place] coronary artery without angina pectoris) -c/w ASA Ordered: [facility] Hospital Care/Day High 50 Minutes 52751 7. Obstructive sleep apnea (G47.33: Obstructive sleep apnea (adult) (pediatric)) -CPAP qHS Ordered: [facility] Hospital Care/Day High 50 Minutes 53038 8. Pulmonary hypertension (I27.20: Pulmonary hypertension, unspecified) c/w spironolactone 50mg -lasix 40 mg iv qd -strict I/Os daily weights -check echo Ordered: [facility] Hospital Care/Day High 50 Minutes 61508 9. Abdominal pain (R10.9: Unspecified abdominal pain) resolved no complaints this morning Ordered: [facility] Hospital Care/Day High 50 Minutes [id number] 10. Hypertension (I10: Essential (primary) hypertension) c/w spironolactone Ordered: [facility] Care/Day High 50 Minutes 57126 11. Diabetes (E11.9: Type 2 diabetes mellitus without complications) BGT qACHS -c/w glimepiride Ordered: [facility] Care/Day High 50 Minutes 26738 12. Hyperlipidemia (E78.5: Hyperlipidemia, unspecified) -hold statin due to elevated CK Ordered: [facility] Care/Day High 50 Minutes 41418 13. Chronic anemia (D64.9: Anemia, unspecified) monitor Ordered: [facility] Care/Day High 50 Minutes 87080 14. BPH (benign prostatic hyperplasia) (N40.0: Benign prostatic hyperplasia without lower urinary tract symptoms) c/w tamsulosin Ordered: [facility] Care/Day High 50 Minutes 33007 15. Dementia (F03.90: Unspecified dementia, unspecified severity, without behavioral disturbance, psychotic disturbance, mood disturbance, and anxiety) -c/w seroquel 25mg qHS Ordered: [facility] Care/Day High 50 Minutes 03563 16. Encounter for deep vein thrombosis (DVT) prophylaxis (Z29.9: Encounter for prophylactic measures, unspecified) Ordered: [facility] Care/Day High 50 Minutes 44089 17. Elevated CK (R74.8: Abnormal levels of other serum enzymes) -CK 1000 this morning. will monitor and hold statin - will not give fluids due to current diuresis Ordered: [facility] Care/Day High 50 Minutes 31504 COPD with acute exacerbation (J44.1: Chronic obstructive [...] artery disease (I25.10: Atherosclerotic heart disease of [place] coronary artery without angina pectoris) Continue aspirin, [...] Scheduled Provider:Donta NOONAN MD Location:Extended Care Appointment Type:[facility]07-10-2023 NoteOT [facility] six clicks score 15/24 = SNF. Patient requires assist w/ all transfers and self care at this time. Inpatient OT services to follow daily to progress w/ functional skills.[facility]07-09-2023 NotePT Evaluation completed with an AMPAC score of 16/24. Pt requires Min A for bed mobility and min/Mod A to stand. Pt was able to take two sidesteps. Will follow daily, but [facility]Result Comment: Electronically Signed By: Maycol CAGLE DO\.br\Date and Time Signed: 11/29/22 01:33 [id number] Hospital Discharge instructions Follow Up Care 11/28/2022 17:10:04 With:Joanie Jiménez Address: [facility] [address], [address] [place] [address]- Business (1) When: Unknown Comments:HFpEF With:Dave Cruz Address: [address] [place] [address]- Business (1) When: Unknown Comments:Cog impariment, [employer] With:Bienvenido Barroso Address: [address] [place] [address] Business (1) When: Unknown [facility]05-20-2023 [facility]:Result Comment: Electronically Signed By: Adeline COLEMAN\.br\Date and Time Signed: 10/10/22 17:53 EDT\.br\Electronically Co- Signed By: Ganesh Minaya MD\.br\Date and Time Co-Signed: 10/10/22 18:51 EDT 09-27-2022 [facility]:Result Comment: Electronically Signed By: Adeline COLEMAN\.br\Date and Time Signed: 09/26/22 21:20 EDT\.br\Electronically Co-Signed By: Ganesh Minaya MD\.br\Date and Time Co-Signed: 09/27/22 08:00 [id number] History of Present illness Narrative* Marcelino Echavarria MD - 09/07/2022 1:12 AM EDT Images from the original note were not included. EMERGENCY TRIAGE, TREAT AND TRANSPORT (ET3) DOCUMENTATION OF TELEHEALTH VISIT Date / Time: 09/06/20222146 Name: Clyde Humphrey : 1945 SSN: [id number] EMS Agency: [facility] [x] Verbal consent obtained [] [...] note No data available for this section [facility], initial encounter- Primary [facility] Anxiety- Primary Anxiety state, unspecified [facility] No data available for this section [facility] No data available for this section [facility] Summary Purpose Family History No Family [...] section and content) DATE CREATED AUTHOR 06/26/2021 [facility] dical Specialist DATE CREATED AUTHOR AUTHOR'S ORGANIZ ATION 12/05/2022 [facility] DATE CREATED AUTHOR AUTHOR'S ORGANIZ ATION 03/26/2023 [facility] DATE CREATED AUTHOR AUTHOR'S ORGANIZ ATION 05/04/2023 [facility] DATE CREATED AUTHOR AUTHOR'S ORGANIZ ATION 01/10/2024 [facility] DATE CREATED AUTHOR AUTHOR'S ORGANIZ ATION 01/18/2024 [facility] DATE CREATED AUTHOR AUTHOR'S ORGANIZ ATION 03/29/2024 [facility] Reason for Visit (unrecogniz ed section and content) Reason Comments Fall Patient Care team informatio n (unrecognized section and content) [employer] Relationship Specialty Start Date End Date Bienvenido Barroso MD [address] [place] [address] PCP - [facility] 07/22/22 [employer] Relationship Specialty Start Date End Date Bienvenido Barroso MD [address] [place] [address] PCP - [facility] 07/22/22 [employer] Relationship Specialty Start Date End Date Bienvenido Barroso MD [address] [place] [address] PCP - [facility] 07/22/22 FOR RECORDS PERTAINING TO PATIENTS WHO ARE [...] BE BASED ON THE PRIMARY CLINICAL RECORDS. [employer] [facility]. provides no warranty or guarantee of the accuracy or completeness of information in this document.
[2024-03-29] MEDS: ALBUTEROL SULFATE 2.5 MG/3 ML VIAL NEB IH (20:04)
[2024-03-29] MEDS: 0.9 % SODIUM CHLORIDE 1,000 ML 999 ML IV (20:19)
[2024-03-29 20:50] LABS: Basophils Percent Auto 0.5 % (0.2-2.0); Eosinophils Absolute Auto 0.2 10^3/uL (0.0-0.7); Eosinophils Percent Auto 3.2 % (0.9-7.0); Hematocrit 41.5 % (42.0-54.0); Hemoglobin 13.6 g/dL (14.0-18.0); Immature Granulocytes Abs Auto 0.11 10^3/uL (0.00-0.03); Immature Granulocytes Pct Auto 1.7 % (0.0-0.5); Lymphocytes Absolute Auto 1.1 10^3/uL (1.2-3.8); Lymphocytes Percent Auto 16.9 % (20.5-60.0); Mean Corpuscular HGB Conc 32.8 g/dL (29.9-35.2); Mean Corpuscular Hemoglobin 30.2 pg (25.9-34.0); Mean Corpuscular Volume 92.2 fL (80.0-94.0); Mean Platelet Volume 11.2 fL (9.5-13.5); Monocytes Absolute Auto 0.8 10^3/uL (0.3-0.8); Monocytes Percent Auto 12.9 % (1.7-12.0); Neutrophils Absolute Auto 4.2 10^3/uL (1.4-6.5); Neutrophils Percent Auto 64.8 % (43.0-75.0); Platelet Count 108 10^3/uL (150-450); Red Cell Distribution Width 17.4 % (11.0-15.0); White Blood Count 6.5 10^3/uL (4.0-11.0)
[2024-03-29 21:05] LABS: INR 0.99; Influenza Virus A Antigen Negative; Influenza Virus B Antigen Negative; Internal Control Within Normal Limits; Partial Thromboplastin Time 28.2 sec (22.3-36.2); Prothrombin Time 10.5 sec (9.0-11.6); SARS-CoV-2 Ag NEGATIVE (NEGATIVE)
[2024-03-29 21:07] LABS: Alanine Aminotransferase 41 U/L (16-63); Albumin Globulin Ratio 0.8; Albumin Level 2.9 g/dL (3.4-5.0); Alkaline Phosphatase 43 U/L (46-116); Anion Gap 10.6; Aspartate Amino Transferase 23 U/L (15-37); BUN Creatinine Ratio 23.2; Bilirubin Total 0.3 mg/dL (0.2-1.0); Calcium 10.1 mg/dL (8.5-10.1); Carbon Dioxide 37.3 mmol/L (21.0-32.0); Chloride 101 mmol/L (98-107); Estimated GFR (African America 49 (>=60 mL/min/1.73m^2); Estimated GFR (Non-African Ame 41 (>=60 mL/min/1.73m^2); Globulin 3.6 g/dL; Glucose 128 mg/dL (74-106); Potassium 4.9 mmol/L (3.5-5.1); Sodium 144 mmol/L (136-145); Total Protein 6.5 g/dL (6.4-8.2)
[2024-03-29 21:16] LABS: Magnesium 2.1 mg/dL (1.8-2.4)
[2024-03-29 21:19] LABS: Lactate/Lactic Acid 4.5 mmol/L (0.4-2.0); Troponin I High Sensitivity 80.5 pg/mL (4.0-76.1)
[2024-03-29 21:25] LABS: Bilirubin Urine NEGATIVE (NEGATIVE); Blood Urine NEGATIVE (NEGATIVE); Clarity Urine CLEAR (CLEAR); Color Urine LT. YELLOW (YELLOW); Glucose Urine UA NEGATIVE (NEGATIVE); Ketones Urine NEGATIVE (NEGATIVE); Leukocyte Esterase Urine NEGATIVE (NEGATIVE); Nitrite Urine NEGATIVE (NEGATIVE); Protein Urine NEGATIVE (NEG/TRACE); pH Urine 6.5 (5.0-9.0)
[2024-03-29 21:26] LABS: Urine Microscopic Indicated NO
--- NOTE | 2024-03-29 22:43 | PC.NURSE ---
pt desatting while asleep, 2L oxygen applied. aware.
--- NOTE | 2024-03-29 22:46 | CT_ITS ---
The [address] [address] Patient Name: CLYDE MARINA MRN: [id number] date: 1945 Sex: M Assigned Patient Location: ER Current Patient Location: Accession/Order Number: [id number] Exam Date: 03/29/2024 22:50 Report Date: 03/30/2024 03:31 At the request of: RAJESH MAGANA Procedure: CT angio chest EXAM: CT angio chest HISTORY: hypoxia COMPARISON: None. TECHNIQUE: Axial CT images through the chest were obtained after the intravenous administration of contrast. Coronal and sagittal reformats were obtained. Dose reduction techniques were achieved by using automated exposure control and/or adjustment of mA and/or kV according to patient size and/or use of iterative reconstruction technique. FINDINGS: The study is technically adequate with a good contrast bolus to the pulmonary arteries. There are no filling defects or vascular cutoffs to indicate a pulmonary embolus. The pulmonary arteries are normal in size. There is mild bibasilar atelectasis. There is peribronchial thickening with areas of mucous plugging. The central airways are patent. No pleural effusion or pneumothorax is seen. There is a left anterior chest cardiac pacemaker device. This causes streak artifact which renders evaluation of adjacent structures suboptimal. There is left-sided gynecomastia. The thoracic aorta is normal in course and caliber without evidence of an aneurysm. The cardiac chambers appear normal in size. There is no pericardial effusion. There is advanced atherosclerotic disease. There is no mediastinal, hilar, or axillary lymphadenopathy by CT size criteria. Images through the upper abdomen reveal no significant abnormalities. There is a suspected remote fracture of the lateral left first rib. No suspicious or aggressive bone lesions are seen. No acute fracture is seen. CT/CT angio chest IMPRESSION: 1. No evidence of pulmonary embolism. 2. Peribronchial thickening with areas of mucous plugging. These findings could represent acute bronchitis. Electronically authenticated by: Carol HUTCHINS Date: 03/30/2024 03:31
[2024-03-29 23:54] LABS: Troponin I High Sensitivity 90.1 pg/mL (4.0-76.1)
[2024-03-29 23:55] LABS: Lactate/Lactic Acid 3.5 mmol/L (0.4-2.0)
[2024-03-30] VITALS (50 sets, daily range): BP systolic 103–134; BP diastolic 46–84; PULSE 53–87; TEMP 35.9–36.7; O2SAT 85–99; BMI 31.1
[2024-03-30] MEDS: FUROSEMIDE 40 MG/4 ML VIAL IVP ×2 (03:05→09:32)
--- OUTSIDE RECORDS SUMMARY | 2024-03-30 04:38 | XMS_ITS | CCD ---
Author Organization [facility] CliniSymt Care Team Providers Care Manufacturing Scheduler Name Role Phone Unavailable Primary Care Provider Bienvenido Rodriguez Primary Care Physician Andrew Rodriguez Unavailable Unavailable [...] [employer] Unavailable Bienvenido Barroso MD Unavailable [phone] EN, HAYLEY T Referring Unavailable YESENIA WHITE [...] 325 mg every 6 (six) hours. Active [id number] 200 actuat albuterol 0.09 mg/actuat metered dose inhaler (4 sources) beta2-Adrenergic Agonist Start: 04-27-2021 take 2 puff(s) by inhalation four times daily for wheezing Pro-Air HFA CFC free 90 mcg/inh MDI 2 puff(s), Inhalation, QID for wheezing, 8.5 gram, Refill(s) 0, [facility], 167.6, cm, 04/24/21 18:14:00 EST, Height/Length [...] Daily, # 30 tab(s), Refills(s) 0, Pharmacy: [facility], 167, cm, 11/28/22 17:20:00 EDT, Height/Length [...] Daily, # 90 tab(s), Refills(s) 4, Pharmacy: [facility], 160, cm, 12/18/22 0:04:00 EDT, Height/Length [...] Daily, # 90 tab(s), Refills(s) 4, Pharmacy: [facility], 160, cm, 12/18/22 0:04:00 EDT, Height/Length [...] Daily, # 90 tab(s), Refills(s) 1, Pharmacy: [facility], 160, cm, 12/18/22 0:04:00 EDT, Height/Length Dosing, 94, kg, 12/18/22 0:04:00 EDT, Weight Dosing Start Date: 01/15/23 Status: Ordered glimepiride 1 mg oral tablet (7 sources) Sulfonylurea Start: 09-28-2022 take 1 tablet by mouth once daily at mealtime glimepiride 1 mg Tab 1 mg = 1 tab(s), Oral, Daily, with the first meal of the day, # 30 tab(s), Refills(s) 0, Pharmacy: [facility], 167, cm, 09/26/22 10:09:00 EDT, Height/Length [...] qHS, # 210 tab(s), Refills(s) 1, Pharmacy: [facility], 160, cm, 12/18/22 0:04:00 EDT, Height/Length [...] Bedtime, # 30 tab(s), Refills(s) 0, Pharmacy: [facility], 167, cm, 11/28/22 17:20:00 EDT, Height/Length [...] Daily, # 90 tab(s), Refills(s) 1, Pharmacy: [facility], 160, cm, 12/18/22 0:04:00 EDT, Height/Length [...] week(s), # 8 cap(s), Refills(s) 0, Pharmacy: [facility], 167, cm, 11/28/22 17:20:00 EDT, Height/Length [...] Start: 06-16-2014 take 1 capsule by mo [facility] twice daily tamsulosin 0.4 mg Cap 0.4 mg = 1 cap(s), Oral, BID, Refills(s) 0, Urinary discomfort Start Date: 06/16/14 Status: Ordered take 1 capsule by [facility] every twenty-four hours in the morning tamsulosin [...] Coronary atherosclerosis; Translations: [Atherosclerotic heart disease of [place] coronary artery without angina pectoris] Onset: 11-29-2022 [...] Range Facility Office Visiton 03-22-2024 Follow-up visit [id number] Clyde Humphrey 1945 M Date Provider Department Center 03/22/2024 [id number] ALEGRIA 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 Normal [facility] ALL BASIC METABOLIC PANELon 03-03-2024 Anion gap [...] rate/Area] 46 Low >=60 mL/min/1.73 m 2 [facility] Glucose [Mass/Vol] 132 mg/dL High 74 - 106 mg/dL [facility] Interpretation and review of laboratory results Abnormal [facility] Potassium [Moles/Vol] 4.3 mmol/L 3.5 - 5.1 mmol/L [facility] Sodium [Moles/Vol] 138 mmol/L 136 - 145 mmol/L [facility] TBH EGFR-NON AF ANDORRAN 38 Low >=6 0 mL/min/1.73 m 2 [facility] Urea nitrogen [Mass/Vol] 37.0 mg/dL High 7.0 - 18.0 mg/dL [facility] Urea nitrogen/Creatinine [Mass ratio] 21.4 mg/mg [facility] ALL PRO BNPon 03-03-2024 NT PRO B TYPE NATRIURETIC PEPT 1772.0 pg/mL NINF - 1800.0 pg/mL [facility] No Panel Informationon 03-03 [facility] ALL CBC WITH AUTO DIFFon BASOPHILS ABSOLUTE AUTO 0.0 N [facility] Basophils/100 WBC (Bld) 0.4 % 0.2 - 2.0 % [facility] Eosinophils/100 WBC (Bld) 15.4 % High 0.9 - 7.0 % [facility] Erythrocyte distribution width (RBC) [Ratio] 16.1 % High 11.0 - 15.0 % [facility] Hematocrit (Bld) [Volume fraction] 40.0 % Low 42.0 - 54.0 % [facility] Hemoglobin (Bld) [Mass/Vol] 12.6 g/dL Low 14.0 - 18.0 g/dL [facility] IMMATURE GRANULOCYTES ABS AUTO 0.22 High [facility] Immature granulocytes/100 WBC (Bld) 2.9 % High 0.0 - 0.5 % [facility] Interpretation and review of laboratory results Abnormal [facility] LYMPHOCYTES ABSOLUTE AUTO 1.3 [facility] Lymphocytes/100 WBC (Bld) 16.9 % Low 20.5 - 60.0 % [facility] MCH (RBC) [Entitic mass] 28.7 pg 25. 9 - 34.0 pg [facility] MCHC (RBC) [Mass/Vol] 31.5 g/dL 29.9 - [...] [facility] Office Visiton 01-21-2024 Follow-up visit [id number] Clyde Humphrey 1945 M Date Provider Department Center 01/21/2024 [id number] ALEGRIA [facility] No family history on file Level of Service:10844 [place] POSTOP FOLLOW UP VISIT RELATED TO ORIGINAL PX Normal [facility] 30on 01-16-2024 30 The patient is [...] pain management techniques Outcome: Progressing . Normal [facility] BASIC METABOLIC PANELon 12-23 Anion gap [Moles/Vol] 13 mmol/L Normal 7-20 [facility] Comment on above: Performed By: #### L [id number] ####[facility] ([facility])[address] [place] [address] Calcium [Mass/Vol] 8.8 mg/dL Normal 8.6-10.3 [facility] Comment on above: Performed By: #### L [id number] ####[facility] ([facility])[address] [place] [address] Chloride [Moles/Vol] 104 mmol/L Normal 98-107 [facility] Comment on above: Performed By: #### L [id number] ####[facility] ([facility])[address] [place] [address] CO2 [Moles/Vol] 29 mmol/L Normal 21-31 [facility] Comment on above: Performed By: #### L [id number] ####[facility] ([facility])[address] [place] [address] Creatinine [Mass/Vol] 1.02 mg/dL Normal 0.70-1.30 [facility] Comment on above: Performed By: #### L [id number] ####[facility] ([facility])[address] [place] [address] GLOMERULAR FILTRATION RATE ML/MIN/1.73 SQ M.PREDICTED 74.8 mL/min/1.73m*2 Normal >60.0 [facility] Comment on above: Result Comment: The [facility]???s estimated glomerular filtration rate (eGFR) will [...] of individuals. Performed By: #### L [id number] ####[facility] ([facility])[address] [place] [address] Glucose [Mass/Vol] 99 mg/dL Normal 70-100 [facility] Comment on above: Performed By: #### L [id number] ####[facility] ([facility])[address] [place] [address] Potassium [Moles/Vol] 4.2 mmol/L Normal 3.5-5.1 [facility] Comment on above: Performed By: #### L [id number] ####[facility] ([facility])[address] [place] [address] Sodium [Moles/Vol] 142 mmol/L Normal 136-145 [facility] Comment on above: Performed By: #### L [id number] ####[facility] ([facility])[address] [place] [address] Urea nitrogen [Mass/Vol] 27 mg/dL High 12-15 [facility] Comment on above: Performed By: #### L [id number] ####[facility] ([facility])[address] [place] [address] UREA NITROGEN/CREATININE (MASS RATIO) IN SER/PLAS 26.5 Normal [facility] Comment on above: Performed By: #### L [id number] ####[facility] ([facility])[address] [place] [address] CBC WITH AUTO DIFFERENTIALon 01-16-2024 Basophils (Bld) [#/Vol] 0.03 10*3/uL Normal 0.00-0.20 [facility] Comment on above: Performed By: #### L [id number] #### [facility] ([facility]) [address] [place] [address] Basophils/100 WBC (Bld) 0.4 % Normal 0.0-1.0 [facility] Comment on above: Performed By: #### L [id number] #### [facility] ([facility]) [address] [place] [address] Eosinophils (Bld) [#/Vol] 0.45 10*3/uL Normal 0.00-0.50 [facility] Comment on above: Performed By: #### L [id number] #### [facility] [address] [place] [address] Eosinophils/100 WBC (Bld) 5.7 % Normal 0.0-6.0 [facility] Comment on above: Performed By: #### L [id number] #### [facility] [address] [place] [address] Erythrocyte distribution width (RBC) [Ratio] 14.6 % Normal 11.5-15.0 [facility] Comment on above: Performed By: #### L [id number] #### [facility] [address] [place] [address] ERYTHROCYTE MEAN CORPUSCULAR HEMOGLOBIN CONCENTRATION (G/DL) BY AUTOMATED 31.6 g/dL Low 32.0-35.0 [facility] Comment on above: Performed By: #### L [id number] #### [facility] [address] [place] [address] Hematocrit (Bld) [Volume fraction] 37.7 % Low 39.0-55.0 [facility] Comment on above: Performed By: #### L [id number] #### [facility] ([facility]) [address] [place] [address] Hemoglobin (Bld) [Mass/Vol] 11.9 g/dL Low 13.0-17.0 [facility] Comment on above: Performed By: #### L [id number] #### [facility] [address] [place] [address] Immature granulocytes (Bld) [#/Vol] 0.18 10*3/uL Normal 0.00-0.20 [facility] Comment on above: Performed By: #### L [id number] #### [facility] ([facility]) [address] [place] [address] Immature granulocytes/100 WBC (Bld) 2.3 % High 0.0-1.0 [facility] Comment on above: Performed By: #### L [id number] #### [facility] ([facility]) [address] [place] [address] Lymphocytes (Bld) [#/Vol] 1.51 10*3/uL Normal 1.20-4.00 [facility] Comment on above: Performed By: #### L [id number] #### [facility] ([facility]) [address] [place] [address] Lymphocytes/100 WBC (Bld) 19.3 % Low 20.0-45.0 [facility] Comment on above: Performed By: #### L [id number] #### [facility] ([facility]) [address] [place] [address] MCH (RBC) [Entitic mass] 28.4 pg Normal 27.0-33.0 [facility] Comment on above: Performed By: #### L [id number] #### [facility] ([facility]) [address] [place] [address] MCV (RBC) [Entitic vol] 90.0 fL Normal 82.0-98.0 [facility] Comment on above: Performed By: #### L [id number] #### [facility] ([facility]) [address] [place] [address] Monocytes (Bld) [#/Vol] 0.90 10*3/uL Normal 0.10-1.00 [facility] Comment on above: Performed By: #### L [id number] #### [facility] ([facility]) [address] [place] [address] Monocytes/100 WBC (Bld) 11.5 % Normal 5.0-12.0 [facility] Comment on above: Performed By: #### L [id number] #### [facility] ([facility]) [address] [place] [address] Neutrophils (Bld) [#/Vol] 4.77 10*3/uL Normal 1.60-7.60 [facility] Comment on above: Performed By: #### L [id number] #### [facility] ([facility]) [address] [place] [address] Neutrophils/100 WBC (Bld) 60.8 % Normal 40.0-72.0 [facility] Comment on above: Performed By: #### L [id number] #### [facility] [address] [place] [address] NRBC (PER 100 WBCS) BY AUTOMATED COUNT 0.0 % Normal 0 [facility] Comment on above: Performed By: #### L [id number] #### [facility] ([facility]) [address] [place] [address] PLATELETS (10*3/UL) IN BLOOD AUTOMATED COUNT 159 10*3/uL Normal 150-400 [facility] Comment on above: Performed By: #### L [id number] #### [facility] ([facility]) [address] [place] [address] RBC (Bld) [#/Vol] 4.19 10*6/uL Low 4.20-5.70 [facility] Comment on above: Performed By: #### L [id number] #### [facility] ([facility]) [address] [place] [address] WBC (Bld) [#/Vol] 7.84 10*3/uL Normal 4.00-10.60 [facility] Comment on above: Performed By: #### L [id number] #### [facility] ([facility]) [address] [place] [address] NURSNOTEon 01-16-2024 NURSNOTE Pt discharged via [facility] with all belongings and questions answered to pt's satisfaction. Normal [facility] NURSNOTE RN attempted to call report to [facility], no answer Normal [facility] BASIC METABOLIC PANELon 12-23 Anion gap [Moles/Vol] 13 mmol/L Normal 7-20 [facility] Comment on above: Performed By: #### L [id number] ####[facility] [place] [address] Calcium [Mass/Vol] 8.6 mg/dL Normal 8.6-10.3 [facility] Comment on above: Performed By: #### L [id number] ####[facility] [place] [address] Chloride [Moles/Vol] 106 mmol/L Normal 98-107 [facility] Comment on above: Performed By: #### L [id number] ####[facility] ([facility])[address] [place] [address] CO2 [Moles/Vol] 29 mmol/L Normal 21-31 [facility] Comment on above: Performed By: #### L [id number] ####[facility] [place] [address] Creatinine [Mass/Vol] 0.98 mg/dL Normal 0.70-1.30 [facility] Comment on above: Performed By: #### L [id number] ####[facility] ([facility])[address] [place] [address] GLOMERULAR FILTRATION RATE ML/MIN/1.73 SQ M.PREDICTED 78.4 mL/min/1.73m*2 Normal >60.0 [facility] Comment on above: Result Comment: The [facility]???s estimated glomerular filtration rate (eGFR) will [...] of individuals. Performed By: #### L [id number] ####[facility] [place] [address] Glucose [Mass/Vol] 101 mg/dL High 70-100 [facility] Comment on above: Performed By: #### L [id number] ####[facility] ([facility])[address] [place] [address] Potassium [Moles/Vol] 4.2 mmol/L Normal 3.5-5.1 [facility] Comment on above: Performed By: #### L [id number] ####[facility] [place] [address] Sodium [Moles/Vol] 144 mmol/L Normal 136-145 [facility] Comment on above: Performed By: #### L [id number] ####[facility] ([facility])[address] [place] [address] Urea nitrogen [Mass/Vol] 25 mg/dL Normal 7-25 [facility] Comment on above: Performed By: #### L [id number] ####[facility] ([facility])[address] [place] [address] UREA NITROGEN/CREATININE (MASS RATIO) IN SER/PLAS 25.5 Normal [facility] Comment on above: Performed By: #### L [id number] ####[facility] ([facility])[address] [place] [address] CBC WITH AUTO DIFFERENTIALon 01-15-2024 Basophils (Bld) [#/Vol] 0.05 10*3/uL Normal 0.00-0.20 [facility] Comment on above: Performed By: #### L [id number] #### [facility] ([facility]) [address] [place] [address] Basophils/100 WBC (Bld) 0.6 % Normal 0.0-1.0 [facility] Comment on above: Performed By: #### L [id number] #### [facility] ([facility]) [address] [place] [address] Eosinophils (Bld) [#/Vol] 0.53 10*3/uL High 0.00-0.50 [facility] Comment on above: Performed By: #### L [id number] #### [facility] ([facility]) [address] [place] [address] Eosinophils/100 WBC (Bld) 6.7 % High 0.0-6.0 [facility] Comment on above: Performed By: #### L [id number] #### [facility] [address] [place] [address] Erythrocyte distribution width (RBC) [Ratio] 14.9 % Normal 11.5-15.0 [facility] Comment on above: Performed By: #### L [id number] #### [facility] ([facility]) [address] [place] [address] ERYTHROCYTE MEAN CORPUSCULAR HEMOGLOBIN CONCENTRATION (G/DL) BY AUTOMATED 31.3 g/dL Low 32.0-35.0 [facility] Comment on above: Performed By: #### L [id number] #### [facility] ([facility]) [address] [place] [address] Hematocrit (Bld) [Volume fraction] 37.4 % Low 39.0-55.0 [facility] Comment on above: Performed By: #### L [id number] #### [facility] ([facility]) [address] [place] [address] Hemoglobin (Bld) [Mass/Vol] 11.7 g/dL Low 13.0-17.0 [facility] Comment on above: Performed By: #### L [id number] #### [facility] ([facility]) [address] [place] [address] Immature granulocytes (Bld) [#/Vol] 0.14 10*3/uL Normal 0.00-0.20 [facility] Comment on above: Performed By: #### L [id number] #### [facility] ([facility]) [address] [place] [address] Immature granulocytes/100 WBC (Bld) 1.8 % High 0.0-1.0 [facility] Comment on above: Performed By: #### L [id number] #### [facility] ([facility]) [address] [place] [address] Lymphocytes (Bld) [#/Vol] 1.27 10*3/uL Normal 1.20-4.00 [facility] Comment on above: Performed By: #### L [id number] #### [facility] ([facility]) [address] [place] [address] Lymphocytes/100 WBC (Bld) 16.2 % Low 20.0-45.0 [facility] Comment on above: Performed By: #### L [id number] #### [facility] ([facility]) [address] [place] [address] MCH (RBC) [Entitic mass] 28.5 pg Normal 27.0-33.0 [facility] Comment on above: Performed By: #### L [id number] #### [facility] ([facility]) [address] [place] [address] MCV (RBC) [Entitic vol] 91.0 fL Normal 82.0-98.0 [facility] Comment on above: Performed By: #### L [id number] #### [facility] ([facility]) [address] [place] [address] Monocytes (Bld) [#/Vol] 0.81 10*3/uL Normal 0.10-1.00 [facility] Comment on above: Performed By: #### L [id number] #### [facility] ([facility]) [address] [place] [address] Monocytes/100 WBC (Bld) 10.3 % Normal 5.0-12.0 [facility] Comment on above: Performed By: #### L [id number] #### [facility] ([facility]) [address] [place] [address] Neutrophils (Bld) [#/Vol] 5.06 10*3/uL Normal 1.60-7.60 [facility] Comment on above: Performed By: #### L [id number] #### [facility] ([facility]) [address] [place] [address] Neutrophils/100 WBC (Bld) 64.4 % Normal 40.0-72.0 [facility] Comment on above: Performed By: #### L [id number] #### [facility] ([facility]) [address] [place] [address] NRBC (PER 100 WBCS) BY AUTOMATED COUNT 0.0 % Normal 0 [facility] Comment on above: Performed By: #### L [id number] #### [facility] [address] [place] [address] PLATELETS (10*3/UL) IN BLOOD AUTOMATED COUNT 156 10*3/uL Normal 150-400 [facility] Comment on above: Performed By: #### L [id number] #### [facility] ([facility]) [address] [place] [address] RBC (Bld) [#/Vol] 4.11 10*6/uL Low 4.20-5.70 [facility] Comment on above: Performed By: #### L [id number] #### [facility] ([facility]) [address] [place] [address] WBC (Bld) [#/Vol] 7.86 10*3/uL Normal 4.00-10.60 [facility] Comment on above: Performed By: #### L [id number] #### [facility] ([facility]) [address] [place] [address] NURSNOTEon 01-15-2024 NURSNOTE Nurse noted pt oxyge n saturation dipping below 92% due to patient sleeping soundly with mouth open. Nurse attempted to apply supplemental oxygen after explaining to patient via communication board. Pt began yelling at nurse and swatting the oxygen tubing away from his face. Will continue to monitor. Normal [facility] 30on 01-14-2024 30 The patient is [...] barriers include continuing to encourage sling. Normal [facility] 30 Daily Case Managemen t Update Multidisciplinary rounds have been completed. Barriers to Discharge: Pending medical clearance for discharge. Discharge plan is to [facility] when medically ready. Diet: Dietary Orders [...] OT Six Click Score: 14 PT Recommendations: [facility] facility placement OT Recommendations: penitentiary facility placement New Consults: Therapy Orders (From admission, onward) Start Ordered 01/11/24 1348 PT eval and treat Until therapy completed Question: Reason for PT? Answer: eval and treat 01/11/24 1347 01/11/24 1348 OT eval and treat Until therapy completed Question: Reason for OT? Answer: eval and treat 01/11/24 1347 Normal [facility] 30 The patient is Moderately Stable [...] and report changes in neurological status Normal [facility] BASIC METABOLIC PANELon 12-23 Anion gap [Moles/Vol] 12 mmol/L Normal 7-20 [facility] Comment on above: Performed By: #### L [id number] #### [facility] ([facility]) [address] [place] [address] Calcium [Mass/Vol] 8.5 mg/dL Low 8.6-10.3 [facility] Comment on above: Performed By: #### L [id number] #### [facility] ([facility]) [address] [place] [address] Chloride [Moles/Vol] 104 mmol/L Normal 98-107 [facility] Comment on above: Performed By: #### L [id number] #### [facility] ([facility]) [address] [place] [address] CO2 [Moles/Vol] 30 mmol/L Normal 21-31 [facility] Comment on above: Performed By: #### L [id number] #### [facility] ([facility]) [address] [place] [address] Creatinine [Mass/Vol] 0.93 mg/dL Normal 0.70-1.30 [facility] Comment on above: Performed By: #### L [id number] #### [facility] ([facility]) [address] [place] [address] GLOMERULAR FILTRATION RATE ML/MIN/1.73 SQ M.PREDICTED 83.5 mL/min/1.73m*2 Normal >60.0 [facility] Comment on above: Result Comment: The [facility]???s estimated glomerular filtration rate (eGFR) will [...] individuals. Performed By: #### L [id number] #### [facility] ([facility]) [address] [place] [address] Glucose [Mass/Vol] 96 mg/dL Normal 70-100 [facility] Comment on above: Performed By: #### L [id number] #### [facility] ([facility]) [address] [place] [address] Potassium [Moles/Vol] 4.5 mmol/L Normal 3.5-5.1 [facility] Comment on above: Performed By: #### L [id number] #### [facility] ([facility]) [address] [place] [address] Sodium [Moles/Vol] 141 mmol/L Normal 136-145 [facility] Comment on above: Performed By: #### L [id number] #### [facility] [address] [place] [address] Urea nitrogen [Mass/Vol] 20 mg/dL Normal 7-25 [facility] Comment on above: Performed By: #### L [id number] #### [facility] [address] [place] [address] UREA NITROGEN/CREATININE (MASS RATIO) IN SER/PLAS 21.5 Normal [facility] Comment on above: Performed By: #### L [id number] #### [facility] [address] [place] [address] CBC WITH AUTO DIFFERENTIALon 01-14-2024 Basophils (Bld) [#/Vol] 0.03 10*3/uL Normal 0.00-0.20 [facility] Comment on above: Performed By: #### L [id number] ####[facility] ([facility])[address] [place] [address] Basophils/100 WBC (Bld) 0.4 % Normal 0.0-1.0 [facility] Comment on above: Performed By: #### L [id number] ####[facility] ([facility])[address] [place] [address] Eosinophils (Bld) [#/Vol] 0.54 10*3/uL High 0.00-0.50 [facility] Comment on above: Performed By: #### L [id number] ####[facility] [place] [address] Eosinophils/100 WBC (Bld) 6.4 % High 0.0-6.0 [facility] Comment on above: Performed By: #### L [id number] ####[facility] [place] [address] Erythrocyte distribution width (RBC) [Ratio] 14.6 % Normal 11.5-15.0 [facility] Comment on above: Performed By: #### L [id number] ####[facility] ([facility])[address] [place] [address] ERYTHROCYTE MEAN CORPUSCULAR HEMOGLOBIN CONCENTRATION (G/DL) BY AUTOMATED 31.9 g/dL Low 32.0-35.0 [facility] Comment on above: Performed By: #### L [id number] ####[facility] ([facility])[address] [place] [address] Hematocrit (Bld) [Volume fraction] 38.6 % Low 39.0-55.0 [facility] Comment on above: Performed By: #### L [id number] ####[facility] ([facility])[address] [place] [address] Hemoglobin (Bld) [Mass/Vol] 12.3 g/dL Low 13.0-17.0 [facility] Comment on above: Performed By: #### L [id number] ####[facility] ([facility])[address] [place] [address] Immature granulocytes (Bld) [#/Vol] 0.16 10*3/uL Normal 0.00-0.20 [facility] Comment on above: Performed By: #### L [id number] ####[facility] ([facility])[address] [place] [address] Immature granulocytes/100 WBC (Bld) 1.9 % High 0.0-1.0 [facility] Comment on above: Performed By: #### L [id number] ####[facility] ([facility])[address] [place] [address] Lymphocytes (Bld) [#/Vol] 1.07 10*3/uL Low 1.20-4.00 [facility] Comment on above: Performed By: #### L [id number] ####[facility] ([facility])[address] [place] [address] Lymphocytes/100 WBC (Bld) 12.7 % Low 20.0-45.0 [facility] Comment on above: Performed By: #### L [id number] ####[facility] ([facility])[address] [place] [address] MCH (RBC) [Entitic mass] 28.5 pg Normal 27.0-33.0 [facility] Comment on above: Performed By: #### L [id number] ####[facility] [place] [address] MCV (RBC) [Entitic vol] 89.4 fL Normal 82.0-98.0 [facility] Comment on above: Performed By: #### L [id number] ####[facility] ([facility])[address] [place] [address] Monocytes (Bld) [#/Vol] 0.59 10*3/uL Normal 0.10-1.00 [facility] Comment on above: Performed By: #### L [id number] ####[facility] ([facility])[address] [place], [place] [address] Monocytes/100 WBC (Bld) 7.0 % Normal 5.0-12.0 [facility] Comment on above: Performed By: #### L [id number] ####[facility] ([facility])[address] [place] [address] Neutrophils (Bld) [#/Vol] 6.01 10*3/uL Normal 1.60-7.60 [facility] Comment on above: Performed By: #### L [id number] ####[facility] [place] [address] Neutrophils/100 WBC (Bld) 71.6 % Normal 40.0-72.0 [facility] Comment on above: Performed By: #### L [id number] ####[facility] [place], [place] [address] NRBC (PER 100 WBCS) BY AUTOMATED COUNT 0.0 % Normal 0 [facility] Comment on above: Performed By: #### L [id number] ####[facility] ([facility])[address] [place], [place] [address] PLATELETS (10*3/UL) IN BLOOD AUTOMATED COUNT 159 10*3/uL Normal 150-400 [facility] Comment on above: Performed By: #### L [id number] ####[facility] ([facility])[address] [place] [address] RBC (Bld) [#/Vol] 4.32 10*6/uL Normal 4.20-5.70 [facility] Comment on above: Performed By: #### L [id number] ####[facility] ([facility])[address] [place] [address] WBC (Bld) [#/Vol] 8.40 10*3/uL Normal 4.00-10.60 [facility] Comment on above: Performed By: #### L [id number] ####[facility] ([facility])[address] [place] [address] HEMOGLOBIN AND HEMATOCRIT, B LOODon 01-14-2024 Hematocrit (Bld) [Volume fraction] 42.2 % Normal 39.0-55.0 [facility] Comment on above: Performed By: #### L [id number] ####[facility] ([facility])[address] [place] [address] Hemoglobin (Bld) [Mass/Vol] 13.1 g/dL Normal 13.0-17.0 [facility] Comment on above: Performed By: #### L [id number] ####[facility] ([facility])[address] [place] [address] POCT GLUCOSE METER UNSOLICIT ED RESULTSon 01-14-2024 Glucose [Mass/Vol] 111 mg/dL High 70-105 [facility] Comment on above: Order Comment: Waive d Testing in the ED is performed under the ED CLIA certificate #[id number]. Result Comment: [email or web address] fry Performed By: #### L [id number] ####[facility] [place] [address] Glucose [Mass/Vol] 151 mg/dL High 70-105 [facility] Comment on above: Order Comment: Waive d Testing in the ED is performed under the ED CLIA certificate #[id number]. Result Comment: [email or web address] [email or web address] Performed By: #### L [id number] #### [facility] ([facility]) [address] [place] [address] Glucose [Mass/Vol] 205 mg/dL High 70-105 [facility] Comment on above: Order Comment: Waive d Testing in the ED is performed under the ED CLIA certificate #[id number]. Result Comment: [email or web address] [email or web address] Performed By: #### L [id number] #### [facility] ([facility]) [address] [place] [address] 30on 01-13-2024 30 Problem: Pain Goal: STG-Pt [...] Patient wheezy duoneb and lasix received. Normal [facility] 30 Daily Case Managemen t Update Multidisciplinary rounds have been completed. Barriers to Discharge: Pending clinical course and improvement in clinical condition. Pending precert to [facility]; started today. Diet: Dietary Orders [...] OT Six Click Score: 14 PT Recommendations: penitentiary facility placement OT Recommendations: penitentiary facility placement New Consults: Therapy Orders (From admission, onward) Start Ordered 01/11/24 1348 PT eval and treat Until therapy completed Question: Reason for PT? Answer: eval and treat 01/11/24 1347 01/11/24 1348 OT eval and treat Until therapy completed Question: Reason for OT? Answer: eval and treat 01/11/24 1347 Normal [facility] 30 The patient is Moderately Stable [...] difficulty Respiratory therapy support as indicated Normal [facility] BASIC METABOLIC PANELon 12-23 Anion gap [Moles/Vol] 9 mmol/L Normal 7-20 [facility] Comment on above: Performed By: #### L [id number] #### [facility] ([facility]) [address] [place] [address] Calcium [Mass/Vol] 8.3 mg/dL Low 8.6-10.3 [facility] Comment on above: Performed By: #### L [id number] #### [facility] ([facility]) [address] [place] [address] Chloride [Moles/Vol] 105 mmol/L Normal 98-107 [facility] Comment on above: Performed By: #### L [id number] #### [facility] ([facility]) [address] [place] [address] CO2 [Moles/Vol] 29 mmol/L Normal 21-31 [facility] Comment on above: Performed By: #### L [id number] #### [facility] ([facility]) [address] [place] [address] Creatinine [Mass/Vol] 0.74 mg/dL Normal 0.70-1.30 [facility] Comment on above: Performed By: #### L [id number] #### [facility] ([facility]) [address] [place] [address] GLOMERULAR FILTRATION RATE ML/MIN/1.73 SQ M.PREDICTED 92.2 mL/min/1.73m*2 Normal >60.0 [facility] Comment on above: Result Comment: The [facility]???s estimated glomerular filtration rate (eGFR) will [...] group of individuals. Performed By: #### L [id number] #### [facility] ([facility]) [address] [place] [address] Glucose [Mass/Vol] 106 mg/dL High 70-100 [facility] Comment on above: Performed By: #### L [id number] #### [facility] ([facility]) [address] [place] [address] Potassium [Moles/Vol] 4.3 mmol/L Normal 3.5-5.1 [facility] Comment on above: Performed By: #### L [id number] #### [facility] ([facility]) [address] [place] [address] Sodium [Moles/Vol] 139 mmol/L Normal 136-145 [facility] Comment on above: Performed By: #### L [id number] #### [facility] [address] [place] [address] Urea nitrogen [Mass/Vol] 16 mg/dL Normal 7-25 [facility] Comment on above: Performed By: #### L [id number] #### [facility] ([facility]) [address] [place] [address] UREA NITROGEN/CREATININE (MASS RATIO) IN SER/PLAS 21.6 Normal [facility] Comment on above: Performed By: #### L [id number] #### [facility] ([facility]) [address] [place] [address] CBC WITH AUTO DIFFERENTIALon 01-13-2024 Basophils (Bld) [#/Vol] 0.04 10*3/uL Normal 0.00-0.20 [facility] Comment on above: Performed By: #### L [id number] #### [facility] ([facility]) [address] [place] [address] Basophils/100 WBC (Bld) 0.5 % Normal 0.0-1.0 [facility] Comment on above: Performed By: #### L [id number] #### [facility] ([facility]) [address] [place] [address] Eosinophils (Bld) [#/Vol] 0.45 10*3/uL Normal 0.00-0.50 [facility] Comment on above: Performed By: #### L [id number] #### [facility] [address] [place] [address] Eosinophils/100 WBC (Bld) 5.9 % Normal 0.0-6.0 [facility] Comment on above: Performed By: #### L [id number] #### [facility] [address] [place] [address] Erythrocyte distribution width (RBC) [Ratio] 14.6 % Normal 11.5-15.0 [facility] Comment on above: Performed By: #### L [id number] #### [facility] [address] [place] [address] ERYTHROCYTE MEAN CORPUSCULAR HEMOGLOBIN CONCENTRATION (G/DL) BY AUTOMATED 31.9 g/dL Low 32.0-35.0 [facility] Comment on above: Performed By: #### L [id number] #### [facility] ([facility]) [address] [place] [address] Hematocrit (Bld) [Volume fraction] 35.7 % Low 39.0-55.0 [facility] Comment on above: Performed By: #### L [id number] #### [facility] ([facility]) [address] [place] [address] Hemoglobin (Bld) [Mass/Vol] 11.4 g/dL Low 13.0-17.0 [facility] Comment on above: Performed By: #### L [id number] #### [facility] [address] [place] [address] Immature granulocytes (Bld) [#/Vol] 0.15 10*3/uL Normal 0.00-0.20 [facility] Comment on above: Performed By: #### L [id number] #### [facility] ([facility]) [address] [place] [address] Immature granulocytes/100 WBC (Bld) 2.0 % High 0.0-1.0 [facility] Comment on above: Performed By: #### L [id number] #### [facility] ([facility]) [address] [place] [address] Lymphocytes (Bld) [#/Vol] 1.22 10*3/uL Normal 1.20-4.00 [facility] Comment on above: Performed By: #### L [id number] #### [facility] [address] [place] [address] Lymphocytes/100 WBC (Bld) 16.1 % Low 20.0-45.0 [facility] Comment on above: Performed By: #### L [id number] #### [facility] ([facility]) [address] [place] [address] MCH (RBC) [Entitic mass] 28.6 pg Normal 27.0-33.0 [facility] Comment on above: Performed By: #### L [id number] #### [facility] ([facility]) [address] [place] [address] MCV (RBC) [Entitic vol] 89.5 fL Normal 82.0-98.0 [facility] Comment on above: Performed By: #### L [id number] #### [facility] ([facility]) [address] [place] [address] Monocytes (Bld) [#/Vol] 0.83 10*3/uL Normal 0.10-1.00 [facility] Comment on above: Performed By: #### L [id number] #### [facility] ([facility]) [address] [place] [address] Monocytes/100 WBC (Bld) 10.9 % Normal 5.0-12.0 [facility] Comment on above: Performed By: #### L [id number] #### [facility] ([facility]) [address] [place] [address] Neutrophils (Bld) [#/Vol] 4.89 10*3/uL Normal 1.60-7.60 [facility] Comment on above: Performed By: #### L [id number] #### [facility] ([facility]) [address] [place] [address] Neutrophils/100 WBC (Bld) 64.6 % Normal 40.0-72.0 [facility] Comment on above: Performed By: #### L [id number] #### [facility] ([facility]) [address] [place] [address] NRBC (PER 100 WBCS) BY AUTOMATED COUNT 0.0 % Normal 0 [facility] Comment on above: Performed By: #### L [id number] #### [facility] ([facility]) [address] [place] [address] PLATELETS (10*3/UL) IN BLOOD AUTOMATED COUNT 152 10*3/uL Normal 150-400 [facility] Comment on above: Performed By: #### L [id number] #### [facility] ([facility]) [address] [place] [address] RBC (Bld) [#/Vol] 3.99 10*6/uL Low 4.20-5.70 [facility] Comment on above: Performed By: #### L [id number] #### [facility] ([facility]) [address] [place] [address] WBC (Bld) [#/Vol] 7.58 10*3/uL Normal 4.00-10.60 [facility] Comment on above: Performed By: #### L [id number] #### [facility] ([facility]) [address] [place] [address] FERRITINon 01-13-2024 FERRITIN (NG/ML) IN SER/PLAS 53.0 ng/mL Normal 24.0-336.0 [facility] Comment on above: Performed By: #### L [id number] #### [facility] ([facility]) [address] [place] [address] FOLATEon 01-13-2024 FOLATE (NG/ML) IN SER/PLAS 12.14 ng/mL Normal 6.6-1000 [facility] Comment on above: Performed By: #### L [id number] ####[facility] [place] [address] IRON AND TIBCon 01-13-2024 IRON (UG/DL) IN SER/PLAS 37 ug/dL Low 50-212 [facility] Comment on above: Performed By: #### L [id number] #### [facility] [address] [place] [address] IRON BINDING CAPACITY (UG/DL) IN SER/PLAS 244 ug/dL Low 250-450 [facility] Comment on above: Performed By: #### L [id number] #### [facility] ([facility]) [address] [place] [address] IRON BINDING CAPACITY.UNSATURATED (UG/DL) IN SER/PLAS 207.0 ug/dL Normal 155.0-355.0 [facility] Comment on above: Performed By: #### L [id number] #### [facility] ([facility]) [address] [place] [address] IRON SATURATION (%) IN SER/PLAS 15 % Low 20-50 [facility] Comment on above: Performed By: #### L [id number] #### [facility] ([facility]) [address] [place] [address] PHOSPHORUSon 01-13-2024 Magnesium [Mass/Vol] 2.7 mg/dL Normal 2.5-5.0 [facility] Comment on above: Performed By: #### L [id number] #### [facility] ([facility]) [address] [place] [address] POCT GLUCOSE METER UNSOLICIT ED RESULTSon 01-13-2024 Glucose [Mass/Vol] 107 mg/dL High 70-105 [facility] Comment on above: Order Comment: Waive d Testing in the ED is performed under the ED CLIA certificate #[id number]. Result Comment: [email or web address] Performed By: #### L [id number] #### [facility] ([facility]) [address] [place] [address] Glucose [Mass/Vol] 115 mg/dL High 70-105 [facility] Comment on above: Order Comment: Waive d Testing in the ED is performed under the ED CLIA certificate #[id number]. Result Comment: [email or web address] Performed By: #### L [id number] #### [facility] ([facility]) [address] [place] [address] Glucose [Mass/Vol] 164 mg/dL High 70-105 [facility] Comment on above: Order Comment: Waive d Testing in the ED is performed under the ED CLIA certificate #[id number]. Result Comment: [email or web address] Performed By: #### L [id number] #### [facility] ([facility]) [address] [place] [address] Glucose [Mass/Vol] 116 mg/dL High 70-105 [facility] Comment on above: Order Comment: Waive d Testing in the ED is performed under the ED CLIA certificate #[id number]. Result Comment: [email or web address] [email or web address] Performed By: #### L [id number] #### [facility] ([facility]) [address] [place] [address] VITAMIN B12on 01-13-2024 Cobalamin (Vitamin B12) [Mass/Vol] 179 pg/mL Low 180-914 [facility] Comment on above: Result Comment: REFMarlen MORALES RANGES: 180-914 pg/mL Normal 145-179 pg/mL Indeterminate <145 pg/mL Deficient Performed By: #### L [id number] ####[facility] ([place])[address] [place] [address] 30on 01-12-2024 30 Daily Case Managemen t Update Multidisciplinary rounds have been completed. Barriers to Discharge: 01/11- still waiting on pt ot, awaiting SW to confirm return to [facility], needs to talk to daughter, aware. Ct [...] Click Score: 14 PT Recommendations: OT Recommendations: penitentiary facility placement New Consults: Consult Orders (From [...] Answer: eval and treat 01/11/24 1347 Normal [facility] CBCon 01-12-2024 Erythrocyte distribution width (RBC) [Ratio] 14.6 % Normal 11.5-15.0 [facility] Comment on above: Performed By: #### L [id number] #### [facility] [address] [place] [address] ERYTHROCYTE MEAN CORPUSCULAR HEMOGLOBIN CONCENTRATION (G/DL) BY AUTOMATED 32.2 g/dL Normal 32.0-35.0 [facility] Comment on above: Performed By: #### L [id number] #### [facility] [address] [place] [address] Hematocrit (Bld) [Volume fraction] 34.5 % Low 39.0-55.0 [facility] Comment on above: Performed By: #### L [id number] #### [facility]) [address] [place] [address] Hemoglobin (Bld) [Mass/Vol] 11.1 g/dL Low 13.0-17.0 [facility] Comment on above: Performed By: #### L [id number] #### [facility] ([facility] [address] [place] [address] MCH (RBC) [Entitic mass] 28.8 pg Normal 27.0-33.0 [facility] Comment on above: Performed By: #### L [id number] #### [facility] ([facility]) [address] [place] [address] MCV (RBC) [Entitic vol] 89.4 fL Normal 82.0-98.0 [facility] Comment on above: Performed By: #### L [id number] #### [facility] ([facility]) [address] [place] [address] PLATELETS (10*3/UL) IN BLOOD AUTOMATED COUNT 146 10*3/uL Low 150-400 [facility] Comment on above: Performed By: #### L [id number] #### [facility] ([facility]) [address] [place] [address] RBC (Bld) [#/Vol] 3.86 10*6/uL Low 4.20-5.70 [facility] Comment on above: Performed By: #### L [id number] #### [facility] ([facility]) [address] [place] [address] WBC (Bld) [#/Vol] 8.81 10*3/uL Normal 4.00-10.60 [facility] Comment on above: Performed By: #### L [id number] #### [facility] ([facility]) [address] [place] [address] COMPREHENSIVE METABOLIC PANE Michael 01-12-2024 Albumin [Mass/Vol] 3.1 g/dL Low 3.5-5.7 [facility] Comment on above: Performed By: #### L [id number] #### [facility] ([facility]) [address] [place] [address] ALP [Catalytic activity/Vol] 33 U/L Low 34-104 [facility] Comment on above: Performed By: #### L [id number] #### [facility] ([facility]) [address] [place] [address] ALT [Catalytic activity/Vol] 17 U/L Normal 7-52 [facility] Comment on above: Performed By: #### L [id number] #### [facility] ([facility]) [address] [place] [address] Anion gap [Moles/Vol] 11 mmol/L Normal 7-20 [facility] Comment on above: Performed By: #### L [id number] #### [facility] ([facility]) [address] [place] [address] AST [Catalytic activity/Vol] 16 U/L Normal 13-39 [facility] Comment on above: Performed By: #### L [id number] #### [facility] ([facility]) [address] [place] [address] Bilirubin [Mass/Vol] 0.4 mg/dL Normal 0.3-1.0 [facility] Comment on above: Performed By: #### L [id number] #### [facility] ([facility]) [address] [place] [address] Calcium [Mass/Vol] 8.4 mg/dL Low 8.6-10.3 [facility] Comment on above: Performed By: #### L [id number] #### [facility] ([facility]) [address] [address] Chloride [Moles/Vol] 103 mmol/L Normal 98-107 [facility] Comment on above: Performed By: #### L [id number] #### [facility] ([facility]) [address] [place] [address] CO2 [Moles/Vol] 28 mmol/L Normal 21-31 [facility] Comment on above: Performed By: #### L [id number] #### [facility] ([facility]) [address] [place] [address] Creatinine [Mass/Vol] 0.84 mg/dL Normal 0.70-1.30 [facility] Comment on above: Performed By: #### L [id number] #### [facility] ([facility]) [address] [place] [address] GLOMERULAR FILTRATION RATE ML/MIN/1.73 SQ M.PREDICTED 88.7 mL/min/1.73m*2 Normal >60.0 [facility] Comment on above: Result Comment: The [facility]???s estimated glomerular filtration rate (eGFR) will [...] individuals. Performed By: #### L [id number] #### [facility] [address] [place] [address] Glucose [Mass/Vol] 85 mg/dL Normal 70-100 [facility] Comment on above: Performed By: #### L [id number] #### [facility] [address] [place] [address] Potassium [Moles/Vol] 4.0 mmol/L Normal 3.5-5.1 [facility] Comment on above: Performed By: #### L [id number] #### [facility] [address] [place] [address] Protein [Mass/Vol] 5.4 g/dL Low 6.0-8.3 [facility] Comment on above: Performed By: #### L [id number] #### [facility]) [address] [place] [address] Sodium [Moles/Vol] 138 mmol/L Normal 136-145 [facility] Comment on above: Performed By: #### L [id number] #### [facility] [address] [place] [address] Urea nitrogen [Mass/Vol] 19 mg/dL Normal 7-25 [facility] Comment on above: Performed By: #### L [id number] #### [facility] ([facility]) [address] [place] [address] UREA NITROGEN/CREATININE (MASS RATIO) IN SER/PLAS 22.6 Normal [facility] Comment on above: Performed By: #### L [id number] #### [facility] [address] [place] [address] CONSULTon 01-12-2024 CONSULT Reason For Consult: s/p [...] Injury 78 y.o. male who presented to [facility] on 01/09/24 as a transfer from [facility] for symptomatic bradycardia with complete heart block. Patient with a history of dementia, difficulty answering questions thoroughly because of dementia and hearing loss. Majority of history obtained via chart review. Patient with multiple episodes of presyncope reported prior to admission. No clearly documented falls. On arrival to [facility] he was noted to have a heart rate in the 30s. He was transferred to [facility] for Cardiology evaluation and underwent PPM placement [...] history of COPD (chronic obstructive pulmonary disease) ([facility]), Seizure ([facility]), and Sleep apnea. Past Surgical History: has [...] EOMI. Neurologic: (more content not included)... Normal [facility] CT CERVICAL SPINE WO IV CONT RASTon [...] Kan Nicole. Not Vlsuzy Invalid Interpretation Code [facility] Comment on above: Order Comment: Traum [...] Kan Nicole. Not Vldtmat Invalid Interpretation Code [facility] MAGNESIUMon 01-12-2024 Magnesium [Mass/Vol] 2.0 mg/dL Normal 1.9-2.7 [facility] Comment on above: Performed By: #### L [id number] #### [facility] ([facility]) [address] [place] [address] PHOSPHORUSon 01-12-2024 Magnesium [Mass/Vol] 2.1 mg/dL Low 2.5-5.0 [facility] Comment on above: Performed By: #### L [id number] #### [facility] ([facility]) [address] [place] [address] POCT GLUCOSE METER UNSOLICIT ED RESULTSon 01-12-2024 Glucose [Mass/Vol] 153 mg/dL High 70-105 [facility] Comment on above: Order Comment: Waive d Testing in the ED is performed under the ED CLIA certificate #[id number]. Result Comment: [email or web address] Performed By: #### L [id number] #### [facility] ([facility]) [address] [place] [address] Glucose [Mass/Vol] 134 mg/dL High 70-105 [facility] Comment on above: Order Comment: Waive d Testing in the ED is performed under the ED CLIA certificate #[id number]. Result Comment: [email or web address] [email or web address] Performed By: #### L [id number] ####[facility] ([facility])[address] [place] [address] Glucose [Mass/Vol] 210 mg/dL High 70-105 [facility] Comment on above: Order Comment: Waive d Testing in the ED is performed under the ED CLIA certificate #[id number]. Result Comment: emol [email or web address] Performed By: #### L [id number] #### [facility] ([facility]) [address] [place] [address] Glucose [Mass/Vol] 103 mg/dL Normal 70-105 [facility] Comment on above: Order Comment: Waive d Testing in the ED is performed under the ED CLIA certificate #[id number]. Result Comment: [email or web address] [email or web address] Performed By: #### L [id number] #### [facility] ([facility]) [address] [place] [address] 30on 01-11-2024 30 Daily Case Managemen t Update Multidisciplinary rounds have been completed. Barriers to Discharge: 01/10- s/p Novaliq DC-PPM. No overnight events. Mentation appears improved/back to baseline. PT OT ordered, from [facility]? Not sure if returning. On RA, would [...] Answer: eval and treat 01/11/24 1347 Normal [facility] AMMONIAon 01-11-2024 AMMONIA (UMOL/L) IN PLASMA 41 umol/L Normal 18-72 [facility] Comment on above: Performed By: #### L [id number] #### [facility] ([facility]) [address] [place] [address] B-TYPE NATRIURETIC PEPTIDEon 01-11-2024 Natriuretic peptide B (Bld) [Mass/Vol] 1312 pg/mL High 0-100 [facility] Comment on above: Performed By: #### L [id number] #### [facility] ([facility]) [address] [place] [address] BASIC METABOLIC PANELon 08- 0 Anion gap [Moles/Vol] 10 mmol/L Normal 7-20 [facility] Comment on above: Performed By: #### L [id number] ####[facility] ([facility])[address] [place] [address] Calcium [Mass/Vol] 8.3 mg/dL Low 8.6-10.3 [facility] Comment on above: Performed By: #### L [id number] ####[facility] [place] [address] Chloride [Moles/Vol] 104 mmol/L Normal 98-107 [facility] Comment on above: Performed By: #### L [id number] ####[facility] ([facility] [place] [address] CO2 [Moles/Vol] 26 mmol/L Normal 21-31 [facility] Comment on above: Performed By: #### L [id number] ####[facility] ([facility] [place] [address] Creatinine [Mass/Vol] 0.84 mg/dL Normal 0.70-1.30 [facility] Comment on above: Performed By: #### L [id number] ####[facility] ([facility])[address] [place] [address] GLOMERULAR FILTRATION RATE ML/MIN/1.73 SQ M.PREDICTED 88.7 mL/min/1.73m*2 Normal >60.0 [facility] Comment on above: Result Comment: The [facility]???s estimated glomerular filtration rate (eGFR) will [...] of individuals. Performed By: #### L [id number] ####[facility] [place] [address] Glucose [Mass/Vol] 118 mg/dL High 70-100 [facility] Comment on above: Performed By: #### L [id number] ####[facility] ([facility])[address] [place] [address] Potassium [Moles/Vol] 4.0 mmol/L Normal 3.5-5.1 [facility] Comment on above: Performed By: #### L [id number] ####[facility] ([facility])[address] [place] [address] Sodium [Moles/Vol] 136 mmol/L Normal 136-145 [facility] Comment on above: Performed By: #### L [id number] ####[facility] ([facility])[address] [place] [address] Urea nitrogen [Mass/Vol] 29 mg/dL High 7-25 [facility] Comment on above: Performed By: #### L [id number] ####[facility] ([facility])[address] [place] [address] UREA NITROGEN/CREATININE (MASS RATIO) IN SER/PLAS 34.5 Normal [facility] Comment on above: Performed By: #### L [id number] ####[facility] ([facility])[address] [place] [address] CBC WITH AUTO DIFFERENTIALon 01-11-2024 Basophils (Bld) [#/Vol] 0.04 10*3/uL Normal 0.00-0.20 [facility] Comment on above: Performed By: #### L [id number] #### [facility] ([facility]) [address] [place] [address] Basophils/100 WBC (Bld) 0.5 % Normal 0.0-1.0 [facility] Comment on above: Performed By: #### L [id number] #### [facility] ([facility]) [address] [place] [address] Eosinophils (Bld) [#/Vol] 0.57 10*3/uL High 0.00-0.50 [facility] Comment on above: Performed By: #### L [id number] #### [facility] ([facility]) [address] [place] [address] Eosinophils/100 WBC (Bld) 7.7 % High 0.0-6.0 [facility] Comment on above: Performed By: #### L [id number] #### [facility] ([facility]) [address] [place] [address] Erythrocyte distribution width (RBC) [Ratio] 14.6 % Normal 11.5-15.0 [facility] Comment on above: Performed By: #### L [id number] #### [facility] ([facility]) [address] [place] [address] ERYTHROCYTE MEAN CORPUSCULAR HEMOGLOBIN CONCENTRATION (G/DL) BY AUTOMATED 32.9 g/dL Normal 32.0-35.0 [facility] Comment on above: Performed By: #### L [id number] #### [facility] ([facility]) [address] [place] [address] Hematocrit (Bld) [Volume fraction] 34.0 % Low 39.0-55.0 [facility] Comment on above: Performed By: #### L [id number] #### [facility] [address] [place] [address] Hemoglobin (Bld) [Mass/Vol] 11.2 g/dL Low 13.0-17.0 [facility] Comment on above: Performed By: #### L [id number] #### [facility] [address] [place] [address] Immature granulocytes (Bld) [#/Vol] 0.06 10*3/uL Normal 0.00-0.20 [facility] Comment on above: Performed By: #### L [id number] #### [facility] ([facility]) [address] [place] [address] Immature granulocytes/100 WBC (Bld) 0.8 % Normal 0.0-1.0 [facility] Comment on above: Performed By: #### L [id number] #### [facility] [address] [place] [address] Lymphocytes (Bld) [#/Vol] 0.80 10*3/uL Low 1.20-4.00 [facility] Comment on above: Performed By: #### L [id number] #### [facility] ([facility]) [address] [place] [address] Lymphocytes/100 WBC (Bld) 10.8 % Low 20.0-45.0 [facility] Comment on above: Performed By: #### L [id number] #### [facility] ([facility]) [address] [place] [address] MCH (RBC) [Entitic mass] 28.5 pg Normal 27.0-33.0 [facility] Comment on above: Performed By: #### L [id number] #### [facility] ([facility]) [address] [place] [address] MCV (RBC) [Entitic vol] 86.5 fL Normal 82.0-98.0 [facility] Comment on above: Performed By: #### L [id number] #### [facility] ([facility]) [address] [place] [address] Monocytes (Bld) [#/Vol] 0.70 10*3/uL Normal 0.10-1.00 [facility] Comment on above: Performed By: #### L [id number] #### [facility] ([facility]) [address] [place] [address] Monocytes/100 WBC (Bld) 9.4 % Normal 5.0-12.0 [facility] Comment on above: Performed By: #### L [id number] #### [facility] ([facility]) [address] [place] [address] Neutrophils (Bld) [#/Vol] 5.27 10*3/uL Normal 1.60-7.60 [facility] Comment on above: Performed By: #### L [id number] #### [facility] [address] [place] [address] Neutrophils/100 WBC (Bld) 70.8 % Normal 40.0-72.0 [facility] Comment on above: Performed By: #### L [id number] #### [facility] ([facility]) [address] [place] [address] NRBC (PER 100 WBCS) BY AUTOMATED COUNT 0.0 % Normal 0 [facility] Comment on above: Performed By: #### L [id number] #### [facility] ([facility]) [address] [place] [address] PLATELETS (10*3/UL) IN BLOOD AUTOMATED COUNT 155 10*3/uL Normal 150-400 [facility] Comment on above: Performed By: #### L [id number] #### [facility] ([facility]) [address] [place] [address] RBC (Bld) [#/Vol] 3.93 10*6/uL Low 4.20-5.70 [facility] Comment on above: Performed By: #### L [id number] #### [facility] ([facility]) [address] [place] [address] WBC (Bld) [#/Vol] 7.44 10*3/uL Normal 4.00-10.60 [facility] Comment on above: Performed By: #### L [id number] #### [facility] ([facility]) [address] [place] [address] MAGNESIUMon 01-11-2024 Magnesium [Mass/Vol] 2.3 mg/dL Normal 1.9-2.7 [facility] Comment on above: Performed By: #### L [id number] #### [facility] ([facility]) [address] [place] [address] PHOSPHORUSon 01-11-2024 Magnesium [Mass/Vol] 2.0 mg/dL Low 2.5-5.0 [facility] Comment on above: Performed By: #### L [id number] ####[facility] ([facility])[address] [place] [address] POCT GLUCOSE METER UNSOLICIT ED RESULTSon 01-11-2024 Glucose [Mass/Vol] 151 mg/dL High 70-105 [facility] Comment on above: Order Comment: Waive d Testing in the ED is performed under the ED CLIA certificate #[id number]. Result Comment: rcar ran Performed By: #### L [id number] #### [facility] ([facility]) [address] [place] [address] Glucose [Mass/Vol] 157 mg/dL High 70-105 [facility] Comment on above: Order Comment: Waive d Testing in the ED is performed under the ED CLIA certificate #[id number]. Result Comment: pop wei Performed By: #### L [id number] #### [facility] ([facility]) [address] [place] [address] Glucose [Mass/Vol] 150 mg/dL High 70-105 [facility] Comment on above: Order Comment: Waive d Testing in the ED is performed under the ED CLIA certificate #[id number]. Result Comment: rfog art Performed By: #### L [id number] #### [facility] ([facility]) [address] [place] [address] Glucose [Mass/Vol] 127 mg/dL High 70-105 [facility] Comment on above: Order Comment: Waive d Testing in the ED is performed under the ED CLIA certificate #[id number]. Result Comment: pop wei Performed By: #### L [id number] #### [facility] ([facility]) [address] [place] [address] PROCALCITONIN TESTon 024 PROCALCITONIN IN BLOOD 0.09 ng/mL Normal 0.00-0.10 [facility] Comment on above: Result Comment: Susp [...] and initial PCT<0.5ng/mL Performed By: #### L [id number] #### [facility] ([facility]) [address] [place] [address] 30on 01-10-2024 30 Daily Case Managemen t Update Multidisciplinary rounds have been completed. Barriers to Discharge: 01/09- patient came here from [facility] with a complete heart block. (Not sure [...] PT Recommendations: OT Recommendations: New Consults: Jayden [facility] Chapis 01-10-2024 ANES -- Attestation signed [...] 01/10/24 1300 Procedure: Pacemaker DC new Location: [facility] DISHTANK OPERATOR 1 / [facility] (Cath) Providers: Reno Welch [...] attending and fellow. Additional Equipment Requests Normal [facility] BASIC METABOLIC PANELon 12-22 Anion gap [Moles/Vol] 15 mmol/L Normal 7-20 [facility] Comment on above: Performed By: #### L [id number] #### [facility] ([facility]) [address] [place] [address] Calcium [Mass/Vol] 8.4 mg/dL Low 8.6-10.3 [facility] Comment on above: Performed By: #### L [id number] #### [facility] ([facility]) [address] [place] [address] Chloride [Moles/Vol] 97 mmol/L Low 98-107 [facility] Comment on above: Performed By: #### L [id number] #### [facility] ([facility]) [address] [place] [address] CO2 [Moles/Vol] 21 mmol/L Normal 21-31 [facility] Comment on above: Performed By: #### L [id number] #### [facility] ([facility]) [address] [place] [address] Creatinine [Mass/Vol] 1.12 mg/dL Normal 0.70-1.30 [facility] Comment on above: Performed By: #### L [id number] #### [facility] ([facility]) [address] [place] [address] GLOMERULAR FILTRATION RATE ML/MIN/1.73 SQ M.PREDICTED 66.8 mL/min/1.73m*2 Normal >60.0 [facility] Comment on above: Result Comment: The [facility]???s estimated glomerular filtration rate (eGFR) will [...] individuals. Performed By: #### L [id number] #### [facility] ([facility]) [address] [place] [address] Glucose [Mass/Vol] 212 mg/dL High 70-100 [facility] Comment on above: Performed By: #### L [id number] #### [facility] ([facility]) [address] [place] [address] Potassium [Moles/Vol] 3.9 mmol/L Normal 3.5-5.1 [facility] Comment on above: Performed By: #### L [id number] #### [facility] ([facility]) [address] [place] [address] Sodium [Moles/Vol] 129 mmol/L Low 136-145 [facility] Comment on above: Performed By: #### L [id number] #### [facility] ([facility]) [address] [place] [address] Urea nitrogen [Mass/Vol] 56 mg/dL High 7-25 [facility] Comment on above: Performed By: #### L [id number] #### [facility] ([facility]) [address] [place] [address] UREA NITROGEN/CREATININE (MASS RATIO) IN SER/PLAS 50.0 Normal [facility] Comment on above: Performed By: #### L [id number] #### [facility] ([facility]) [address] [place] [address] CBC WITH AUTO DIFFERENTIALon 01-10-2024 Basophils (Bld) [#/Vol] 0.05 10*3/uL Normal 0.00-0.20 [facility] Comment on above: Performed By: #### L [id number] #### [facility] ([facility]) [address] [place] [address] Basophils/100 WBC (Bld) 0.5 % Normal 0.0-1.0 [facility] Comment on above: Performed By: #### L [id number] #### [facility] [address] [place] [address] Eosinophils (Bld) [#/Vol] 0.24 10*3/uL Normal 0.00-0.50 [facility] Comment on above: Performed By: #### L [id number] #### [facility] [address] [place] [address] Eosinophils/100 WBC (Bld) 2.6 % Normal 0.0-6.0 [facility] Comment on above: Performed By: #### L [id number] #### [facility] ([facility]) [address] [place] [address] Erythrocyte distribution width (RBC) [Ratio] 14.7 % Normal 11.5-15.0 [facility] Comment on above: Performed By: #### L [id number] #### [facility] ([facility]) [address] [place] [address] ERYTHROCYTE MEAN CORPUSCULAR HEMOGLOBIN CONCENTRATION (G/DL) BY AUTOMATED 32.4 g/dL Normal 32.0-35.0 [facility] Comment on above: Performed By: #### L [id number] #### [facility] ([facility]) [address] [place] [address] Hematocrit (Bld) [Volume fraction] 35.2 % Low 39.0-55.0 [facility] Comment on above: Performed By: #### L [id number] #### [facility] ([facility]) [address] [place] [address] Hemoglobin (Bld) [Mass/Vol] 11.4 g/dL Low 13.0-17.0 [facility] Comment on above: Performed By: #### L [id number] #### [facility] ([facility]) [address] [place] [address] Immature granulocytes (Bld) [#/Vol] 0.13 10*3/uL Normal 0.00-0.20 [facility] Comment on above: Performed By: #### L [id number] #### [facility] [address] [place] [address] Immature granulocytes/100 WBC (Bld) 1.4 % High 0.0-1.0 [facility] Comment on above: Performed By: #### L [id number] #### [facility] [address] [place] [address] Lymphocytes (Bld) [#/Vol] 1.41 10*3/uL Normal 1.20-4.00 [facility] Comment on above: Performed By: #### L [id number] #### [facility] ([facility]) [address] [place] [address] Lymphocytes/100 WBC (Bld) 15.1 % Low 20.0-45.0 [facility] Comment on above: Performed By: #### L [id number] #### [facility] ([facility]) [address] [place] [address] MCH (RBC) [Entitic mass] 28.5 pg Normal 27.0-33.0 [facility] Comment on above: Performed By: #### L [id number] #### [facility] ([facility]) [address] [place] [address] MCV (RBC) [Entitic vol] 88.0 fL Normal 82.0-98.0 [facility] Comment on above: Performed By: #### L [id number] #### [facility] ([facility]) [address] [place] [address] Monocytes (Bld) [#/Vol] 1.04 10*3/uL High 0.10-1.00 [facility] Comment on above: Performed By: #### L [id number] #### [facility] ([facility]) [address] [place] [address] Monocytes/100 WBC (Bld) 11.1 % Normal 5.0-12.0 [facility] Comment on above: Performed By: #### L [id number] #### [facility] ([facility]) [address] [place] [address] Neutrophils (Bld) [#/Vol] 6.49 10*3/uL Normal 1.60-7.60 [facility] Comment on above: Performed By: #### L [id number] #### [facility] ([facility]) [address] [place] [address] Neutrophils/100 WBC (Bld) 69.3 % Normal 40.0-72.0 [facility] Comment on above: Performed By: #### L [id number] #### [facility] ([facility]) [address] [place] [address] NRBC (PER 100 WBCS) BY AUTOMATED COUNT 0.0 % Normal 0 [facility] Comment on above: Performed By: #### L [id number] #### [facility] ([facility]) [address] [place] [address] PLATELETS (10*3/UL) IN BLOOD AUTOMATED COUNT 168 10*3/uL Normal 150-400 [facility] Comment on above: Performed By: #### L [id number] #### [facility] ([facility]) [address] [place] [address] RBC (Bld) [#/Vol] 4.00 10*6/uL Low 4.20-5.70 [facility] Comment on above: Performed By: #### L [id number] #### [facility] ([facility]) [address] [place] [address] WBC (Bld) [#/Vol] 9.36 10*3/uL Normal 4.00-10.60 [facility] Comment on above: Performed By: #### L [id number] #### [facility] ([facility]) [address] [place] [address] CT HEAD WO IV CONTRASTon CT HEAD [...] Orbits are only partially included in the [id number]. Mild mucosal thickening of the paranasal sinuses. [...] Jayro Castro MD. 9 Invalid Interpretation Code [facility] HPon 01-10-2024 HP -- Attestation signed [...] are no changes to the H&P.plan for [facility] today Normal [facility] MAGNESIUMon 01-10-2024 Magnesium [Mass/Vol] 1.7 mg/dL Low 1.9-2.7 [facility] Comment on above: Performed By: #### L [id number] #### [facility] ([facility]) [address] [place] [address] MRSA/MSSA DNA NASALon 2023 MRSA DNA Positive Abnormal Negative [facility] Comment on above: Order Comment: Testi [...] preclude nasal colonization. Performed By: #### L [id number] #### [facility] ([facility]) [address] [place] [address] MSSA DNA Negative Normal Negative [facility] Comment on above: Order Comment: Testi [...] preclude nasal colonization. Performed By: #### L [id number] #### [facility] ([facility]) [address] [place] [address] PHOSPHORUSon 01-10-2024 Magnesium [Mass/Vol] 2.0 mg/dL Low 2.5-5.0 [facility] Comment on above: Performed By: #### L [id number] #### [facility] ([facility]) [address] [place] [address] POCT GLUCOSE METER UNSOLICIT ED RESULTSon 01-10-2024 Glucose [Mass/Vol] 109 mg/dL High 70-105 [facility] Comment on above: Order Comment: Waive d Testing in the ED is performed under the ED CLIA certificate #[id number]. Result Comment: [email or web address] Performed By: #### L [id number] #### [facility] ([facility] [address] [place] [address] Glucose [Mass/Vol] 172 mg/dL High 70-105 [facility] Comment on above: Order Comment: Waive d Testing in the ED is performed under the ED CLIA certificate #[id number]. Result Comment: [email or web address] Performed By: #### L [id number] #### [facility] ([facility]) [address] [place] [address] Glucose [Mass/Vol] 250 mg/dL High 70-105 [facility] Comment on above: Order Comment: Waive d Testing in the ED is performed under the ED CLIA certificate #[id number]. Result Comment: [email or web address] Performed By: #### L [id number] ####[facility] ([facility])[address] [place] [address] Glucose [Mass/Vol] 241 mg/dL High 70-105 [facility] Comment on above: Order Comment: Waive d Testing in the ED is performed under the ED CLIA certificate #[id number]. Result Comment: [email or web address] Performed By: #### L [id number] ####[facility] ([facility])[address] [place] [address] Glucose [Mass/Vol] 227 mg/dL High 70-105 [facility] Comment on above: Order Comment: Waive d Testing in the ED is performed under the ED CLIA certificate #[id number]. Result Comment: [email or web address] Performed By: #### L [id number] #### [facility] ([facility]) [address] [place] [address] URINALYSISon 01-10-2024 BILIRUBIN, TOTAL PRESENCE IN URINE Negative Normal Negative [facility] Comment on above: Order Comment: Micro scopics not performed on urines with negative chemical reactions unless requested on original order. Performed By: #### L [id number] #### [facility] ([facility]) [address] [place] [address] Clarity (U) Clear Normal Clear [facility] Comment on above: Order Comment: Micro scopics not performed on urines with negative chemical reactions unless requested on original order. Performed By: #### L [id number] #### [facility] ([facility]) [address] [place] [address] Color (U) Straw Abnormal Yellow [facility] Comment on above: Order Comment: Micro scopics not performed on urines with negative chemical reactions unless requested on original order. Performed By: #### L [id number] #### [facility] ([facility]) [address] [place] [address] Glucose (U) [Mass/Vol] Negative Normal Negative [facility] on [facility]: Order Comment: Micro scopics not performed on urines with negative chemical reactions unless requested on original order. Performed By: #### L [id number] #### [facility] ([facility]) [address] [place] [address] HEMOGLOBIN PRESENCE IN URINE Negative Normal Negative [facility] Comment on above: Order Comment: Micro scopics not performed on urines with negative chemical reactions unless requested on original order. Performed By: #### L [id number] #### [facility] ([facility]) [address] [place] [address] Ketones Ql (U) Trace Abnormal Negative [facility] Comment on above: Order Comment: Micro scopics not performed on urines with negative chemical reactions unless requested on original order. Performed By: #### L [id number] #### [facility] ([facility]) [address] [place] [address] LEUKOCYTE ESTERASE PRESENCE IN URINE BY TEST STRIP Negative Normal Negative [facility] Comment on above: Order Comment: Micro scopics not performed on urines with negative chemical reactions unless requested on original order. Performed By: #### L [id number] #### [facility] ([facility]) [address] [place] [address] NITRITE PRESENCE IN URINE Negative Normal Negative [facility] Comment on above: Order Comment: Micro scopics not performed on urines with negative chemical reactions unless requested on original order. Performed By: #### L [id number] #### [facility] ([facility]) [address] [place] [address] pH (U) 7.0 [pH] Normal 5.0-8.0 [facility] Comment on above: Order Comment: Micro scopics not performed on urines with negative chemical reactions unless requested on original order. Performed By: #### L [id number] #### [facility] ([facility]) [address] [place] [address] Protein (U) [Mass/Vol] Negative Normal [facility] Comment on above: Order Comment: Micro scopics not performed on urines with negative chemical reactions unless requested on original order. Performed By: #### L [id number] #### [facility] ([facility]) [address] [place] [address] Specific gravity (U) [Rel density] 1.006 Low 1.015-1.020 [facility] Comment on above: Order Comment: Micro scopics not performed on urines with negative chemical reactions unless requested on original order. Performed By: #### L [id number] #### [facility] ([facility]) [address] [place] [address] 30on 01-09-2024 30 The patient is Moderately Stable - Low risk of patient condition declining or worsening The patient's goals for the shift include The clinical goals for the shift include Over the shift, the patient did not make progress toward the following goals. Normal [facility] APTTon 01-09-2024 ACTIVATED PARTIAL THROMBOPLASTIN TIME IN PPP BY COAGULATION ASSAY 25.9 Seconds Normal 25.0-35.0 [facility] Comment on above: Result Comment: Clin ical significance of the APTT is questionable in the presence of heparin. Performed By: #### L [id number] #### [facility] ([facility]) [address] [place] [address] BASIC METABOLIC PANELon 12-22 Anion gap [Moles/Vol] 12 mmol/L Normal 7-20 [facility] Comment on above: Performed By: #### L [id number] ####[facility] [place] [address] Calcium [Mass/Vol] 8.9 mg/dL Normal 8.6-10.3 [facility] Comment on above: Performed By: #### L [id number] ####[facility] ([facility] [place] [address] Chloride [Moles/Vol] 101 mmol/L Normal 98-107 [facility] Comment on above: Performed By: #### L [id number] ####[facility] ([facility])[address] [place] [address] CO2 [Moles/Vol] 27 mmol/L Normal 21-31 [facility] Comment on above: Performed By: #### L [id number] ####[facility] ([facility])[address] [place] [address] Creatinine [Mass/Vol] 1.33 mg/dL High 0.70-1.30 [facility] Comment on above: Performed By: #### L [id number] ####[facility] ([facility])[address] [place] [address] GLOMERULAR FILTRATION RATE ML/MIN/1.73 SQ M.PREDICTED 54.4 mL/min/1.73m*2 Low >60.0 [facility] Comment on above: Result Comment: The [facility]???s estimated glomerular filtration rate (eGFR) will [...] of individuals. Performed By: #### L [id number] ####[facility] ([facility])[address] [place] [address] Glucose [Mass/Vol] 181 mg/dL High 70-100 [facility] Comment on above: Performed By: #### L [id number] ####[facility] ([facility])[address] [place] [address] Potassium [Moles/Vol] 4.3 mmol/L Normal 3.5-5.1 [facility] Comment on above: Performed By: #### L [id number] ####[facility] ([facility])[address] [place] [address] Sodium [Moles/Vol] 136 mmol/L Normal 136-145 [facility] Comment on above: Performed By: #### L [id number] ####[facility] ([facility])[address] [place] [address] Urea nitrogen [Mass/Vol] 73 mg/dL High 7-25 [facility] Comment on above: Performed By: #### L [id number] ####[facility] ([facility])[address] [place] [address] UREA NITROGEN/CREATININE (MASS RATIO) IN SER/PLAS 54.9 Normal [facility] Comment on above: Performed By: #### L [id number] ####[facility] ([facility])[address] [place] [address] BLOOD CULTUREon 01-09-2024 Bacteria identified Cx Nom (Bld) No growth at 5 days Normal [facility] Comment on above: Performed By: #### L [id number] ####[facility] ([facility])[address] [place] [address] Order Comment: From a different site than #1. Performed By: #### L [id number] #### [facility] [address] [place] [address] CBC WITH AUTO DIFFERENTIALon 01-09-2024 Basophils (Bld) [#/Vol] 0.03 10*3/uL Normal 0.00-0.20 [facility] Comment on above: Performed By: #### L [id number] #### [facility] ([facility]) [address] [place] [address] Basophils/100 WBC (Bld) 0.2 % Normal 0.0-1.0 [facility] Comment on above: Performed By: #### L [id number] #### [facility] ([facility]) [address] [place] [address] Eosinophils (Bld) [#/Vol] 0.30 10*3/uL Normal 0.00-0.50 [facility] Comment on above: Performed By: #### L [id number] #### [facility] ([facility]) [address] [place] [address] Eosinophils/100 WBC (Bld) 2.5 % Normal 0.0-6.0 [facility] Comment on above: Performed By: #### L [id number] #### [facility] ([facility]) [address] [place] [address] Erythrocyte distribution width (RBC) [Ratio] 14.5 % Normal 11.5-15.0 [facility] Comment on above: Performed By: #### L [id number] #### [facility] ([facility]) [address] [place] [address] ERYTHROCYTE MEAN CORPUSCULAR HEMOGLOBIN CONCENTRATION (G/DL) BY AUTOMATED 33.1 g/dL Normal 32.0-35.0 [facility] Comment on above: Performed By: #### L [id number] #### [facility] ([facility]) [address] [place] [address] Hematocrit (Bld) [Volume fraction] 39.6 % Normal 39.0-55.0 [facility] Comment on above: Performed By: #### L [id number] #### [facility] ([facility]) [address] [place] [address] Hemoglobin (Bld) [Mass/Vol] 13.1 g/dL Normal 13.0-17.0 [facility] Comment on above: Performed By: #### L [id number] #### [facility] [address] [place] [address] Immature granulocytes (Bld) [#/Vol] 0.10 10*3/uL Normal 0.00-0.20 [facility] Comment on above: Performed By: #### L [id number] #### [facility] ([facility]) [address] [place] [address] Immature granulocytes/100 WBC (Bld) 0.8 % Normal 0.0-1.0 [facility] Comment on above: Performed By: #### L [id number] #### [facility] ([facility]) [address] [place] [address] Lymphocytes (Bld) [#/Vol] 1.37 10*3/uL Normal 1.20-4.00 [facility] Comment on above: Performed By: #### L [id number] #### [facility] ([facility]) [address] [place] [address] Lymphocytes/100 WBC (Bld) 11.4 % Low 20.0-45.0 [facility] Comment on above: Performed By: #### L [id number] #### [facility] ([facility]) [address] [place] [address] MCH (RBC) [Entitic mass] 29.0 pg Normal 27.0-33.0 [facility] Comment on above: Performed By: #### L [id number] #### [facility] ([facility]) [address] [place] [address] MCV (RBC) [Entitic vol] 87.6 fL Normal 82.0-98.0 [facility] Comment on above: Performed By: #### L [id number] #### [facility] [address] [place] [address] Monocytes (Bld) [#/Vol] 0.86 10*3/uL Normal 0.10-1.00 [facility] Comment on above: Performed By: #### L [id number] #### [facility] ([facility]) [address] [place] [address] Monocytes/100 WBC (Bld) 7.1 % Normal 5.0-12.0 [facility] Comment on above: Performed By: #### L [id number] #### [facility] ([facility]) [address] [place] [address] Neutrophils (Bld) [#/Vol] 9.41 10*3/uL High 1.60-7.60 [facility] Comment on above: Performed By: #### L [id number] #### [facility] ([facility]) [address] [place] [address] Neutrophils/100 WBC (Bld) 78.0 % High 40.0-72.0 [facility] Comment on above: Performed By: #### L [id number] #### [facility] ([facility]) [address] [place] [address] NRBC (PER 100 WBCS) BY AUTOMATED COUNT 0.0 % Normal 0 [facility] Comment on above: Performed By: #### L [id number] #### [facility] ([facility]) [address] [place] [address] PLATELETS (10*3/UL) IN BLOOD AUTOMATED COUNT 235 10*3/uL Normal 150-400 [facility] Comment on above: Performed By: #### L [id number] #### [facility] ([facility]) [address] [place] [address] RBC (Bld) [#/Vol] 4.52 10*6/uL Normal 4.20-5.70 [facility] Comment on above: Performed By: #### L [id number] #### [facility] ([facility]) [address] [place] [address] WBC (Bld) [#/Vol] 12.07 10*3/uL High 4.00-10.60 [facility] Comment on above: Performed By: #### L [id number] #### [facility]) [address] [place] [address] CONSULTon 01-09-2024 CONSULT -- Attestation signed by [...] 78-year-old man who is transferred from the [facility] for complete heart block. 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 We will check an echocardiogram prior to [...] significant for dementia has been transferred from [facility] due to high degree AV block. The patient is unable to answer questions appropriately due to his dementia so history was only taken by the signout received from [place]. The patient was noted to have multiple episodes of presyncope over the last few days and today his heart rate was noted to be in 30s upon their initial evaluation. EKG showed a complete A-V dissociation. When he arrived to [facility] MICU, his HR was in low 30s. Dopamine was increased to 10 and started on Isuprel which improved heart rate to mid to high 40s. Patient remained hemodynamically stable. Cardiology ROS: Negative except as mentioned. Past Medical History He has a past medical history of COPD (chronic obstructive pulmonary disease) ([facility]), Seizure ([facility]), and Sleep apnea. Surgical History He has [...] at bedtime. Do (more content not included)... [facility] 01-09-2024 -- Attestation signed by Jermaine [...] 78-year-old man who is transferred from the [facility] for complete heart block. 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 We will check an echocardiogram prior to [...] significant for dementia has been transferred from [facility] due to high degree AV block. The patient is unable to answer questions appropriately due to his dementia so history was only taken by the signout received from [place]. The patient was noted to have multiple episodes of presyncope over the last few days and today his heart rate was noted to be in 30s upon their initial evaluation. EKG showed a complete A-V dissociation. When he arrived to [facility] MICU, his HR was in low 30s. Dopamine was increased to 10 and started on Isuprel which improved heart rate to mid to high 40s. Patient remained hemodynamically stable. Cardiology ROS: Negative except as mentioned. Past Medical History He has a past medical history of COPD (chronic obstructive pulmonary disease) (CMS/HCC), Seizure ([facility]), and Sleep apnea. Surgical History He has [...] bedtime. Do (more content not included)... Normal [facility] HP -- Attestation signed by Donnie [...] - 78 y.o. - 1945 N - [id number] [facility] # - [id number] Date of Admission - 01/09/2024 1:24 AM Chief Complaint Third-degree heart block History of Present Illness Clyde Humphrey is a 78-year-old gentleman with past medical history significant for dementia has been transferred from [facility] due to high degree AV block. The patient is unable to answer questions appropriately due to his dementia so history was only taken by the signout received from [place]. The patient was noted to have multiple episodes of presyncope over the last few days and today his heart rate was noted to be in 30s upon their initial evaluation. EKG showed a complete A-V dissociation after which thick reached out to [facility] cardiology for possible pacemaker placement. Due to significant bradycardia the patient is being transferred to [facility] ICU for close hemodynamic monitoring and management. [...] injection 5,000 Units, 5,000 Units, subcutaneous, [facility]8h [facility] lispro (HumaLOG) injection 0-5 Units, 0-5 Units, subcutaneous, q6h [facility], Art Suh MD isoproterenol (Isuprel) 1,000 mcg [...] days L (more content not included)... Normal [facility] MAGNESIUMon 01-09-2024 Magnesium [Mass/Vol] 1.9 mg/dL Normal 1.9-2.7 [facility] Comment on above: Performed By: #### L [id number] ####[facility] ([facility])[address] [place] [address] PHOSPHORUSon 01-09-2024 Magnesium [Mass/Vol] 3.2 mg/dL Normal 2.5-5.0 [facility] Comment on above: Performed By: #### L [id number] ####[facility] ([facility])[address] [place] [address] POCT GLUCOSE METER UNSOLICIT ED RESULTSon 01-09-2024 Glucose [Mass/Vol] 219 mg/dL High 70-105 [facility] Comment on above: Order Comment: Waive d Testing in the ED is performed under the ED CLIA certificate #[id number]. Result Comment: nlad oos Performed By: #### L [id number] #### [facility] ([facility]) [address] [place] [address] Glucose [Mass/Vol] 234 mg/dL High 70-105 [facility] Comment on above: Order Comment: Waive d Testing in the ED is performed under the ED CLIA certificate #[id number]. Result Comment: nlad oos Performed By: #### L [id number] #### [facility] ([facility]) [address] [place] [address] PROTIME-INRon 01-09-2024 INR IN PPP BY COAGULATION ASSAY 0.98 Normal 0.90-1.10 [facility] Comment on above: Result Comment: ACCC P [...] CHEST 1995;108:231S-246S. Performed By: #### L [id number] ####[facility] ([facility])[address] [place] [address] PROTHROMBIN TIME (PT) IN PPP BY COAGULATION ASSAY 13.0 Seconds Normal 12.3-14.8 [facility] Comment on above: Performed By: #### L [id number] ####[facility] ([facility])[address] [place] [address] TROPONIN Ion 01-09-2024 Troponin I.cardiac [Mass/Vol] 0.06 ng/mL High 0.00-0.04 [facility] Comment on above: Performed By: #### L [id number] ####[facility] ([facility])[address] [place] [address] Insurance Correspondenceon 1 05-25-2022 Insurance Correspondence [id number]#1. 00TIFF Normal [facility] Coding Queryon 02-17-2023 Coding Query Normal [facility] Discharge Instructionson Discharge Instructions [id number]#1. 00CD:[address] [facility] Transfer Documentson 023 Transfer Documents [id number]#1. 00CD:[address] [facility] Discharge Note-Nursingon Discharge Note-Nursing Normal Fi [facility] Interdisciplinary Note - Santosh e Manageron 01-23-2023 Interdisciplinary Note - Chinchilla Machine Operator Normal [facility] Comment on above: Result Comment: Elec tronically Signed By: Norma Garcia RN\.br\Date and Time Signed: 01/23/23 16:29 EDT Progress Note-Physicianon Progress Note-Physician Normal [facility] Comment on above: Result Comment: Elec tronically Signed By: New Johnson DO.br\Date and Time Signed: 01/23/23 09:50 EDT Auto Diffon 01-22-2023 Basophils/100 WBC (Bld) 0.7 % Normal 0.0-2.0 [facility] Comment on above: Order Comment: Order Added by Discern Expert. Performed By: #### 2 096447, 43285765, 9496385, 1674401 ####[address] [address] Basophils/Leukocytes Auto (Bld) [Pure # fraction] 0.1 E9/L Normal 0.0-0.[address] [facility] Comment on above: Order Comment: Order Added by Discern Expert. Performed By: #### 2 199909, 48313129, 3366192, 0912364 ####[address] [address] Eosinophils/100 WBC (Bld) 9.3 % High 0.0-8.[address] [facility] Comment on above: Order Comment: Order Added by Discern Expert. Performed By: #### 2 846769, 10459720, 1391221, 8658679 ####[address] [address] Eosinophils/Leukocytes Auto (Bld) [Pure # fraction] 0.8 E9/L High 0.0-0.[address] [facility] Comment on above: Order Comment: Order Added by Discern Expert. Performed By: #### 2 325071, 83207958, 6645205, 8195739 ####[address] [address] Lymphocytes/100 WBC (Bld) 17.2 % Normal 14.0-50.[address] [facility] Comment on above: Order Comment: Order Added by Discern Expert. Performed By: #### 2 218451, 14593710, 8881068, 8173206 ####[address] [address] Lymphocytes/Leukocytes Auto (Bld) [Pure # fraction] 1.4 E9/L Normal 1.0-4.[address] [facility] Comment on above: Order Comment: Order Added by Discern Expert. Performed By: #### 2 227809, 74324493, 3451322, 0388968 ####[facility] [address] [place] [address] Monocytes/100 WBC (Bld) 10.0 % Normal 4.0-14.0 [facility] Comment on above: Order Comment: Order Added by Discern Expert. Performed By: #### 2 194850, 08719088, 0267040, 6151431 ####[address] [place] [address] Monocytes/Leukocytes Auto (Bld) [Pure # fraction] 0.8 E9/L Normal 0.2-1.[address] [facility] Comment on above: Order Comment: Order Added by Discern Expert. Performed By: #### 2 789617, 36285830, 1847127, 8903542 ####[address] [address] Neutrophils/100 WBC (Bld) 62.8 % Normal 36.0-75.[address] [facility] Comment on above: Order Comment: Order Added by Discern Expert. Performed By: #### 2 475620, 36133159, 0484153, 7366474 ####[address] [address] Neutrophils/Leukocytes Auto (Bld) [Pure # fraction] 5.2 E9/L Normal 2.0-7.[address] [facility] Comment on above: Order Comment: Order Added by Discern Expert. Performed By: #### 2 652012, 96989805, 0113599, 5940843 ####[address] [place] [address] CBC w/ Auto Diffon 3 Erythrocyte distribution width (RBC) [Ratio] 15.2 % High 10.9-14.[address] [facility] Comment on above: Performed By: #### 2 145052, 36287990, 0195882, 8078523 ####[address] [place] [address] Hematocrit (Bld) [Volume fraction] 43.1 % Normal 37.7-49.[address] [facility] Comment on above: Performed By: #### 2 466044, 21146189, 3530162, 2321489 ####[address] [address] Hemoglobin (Bld) [Mass/Vol] 14.6 g/dL Normal 13.5-17.[address] [facility] Comment on above: Performed By: #### 2 732476, 27803534, 3913018, 2410722 ####[address] [address] MCH (RBC) [Entitic mass] 28.1 pg Normal 27.0-34.[address] [facility] Comment on above: Performed By: #### 2 673994, 87591177, 1008990, 5977931 ####[address] [address] MCHC (RBC) [Mass/Vol] 33.8 g/dL Normal 31.4-36.0 [facility] Comment on above: Performed By: #### 2 024400, 33261616, 1391746, 5297898 ####[address] [address] MCV (RBC) [Entitic vol] 83.2 fL Normal 80.0-100.0 [facility] Comment on above: Performed By: #### 2 020657, 36254529, 8183298, 4772593 ####[address] [address] Platelet mean volume (Bld) [Entitic vol] 8.6 fL Normal 6.4-10.[address] [facility] Comment on above: Performed By: #### 2 388239, 78673902, 3854978, 9697628 ####[address] [address] Platelets (Bld) [#/Vol] 221.0 E9/L Normal 150.0-500.[address] [facility] Comment on above: Performed By: #### 2 134429, 73435869, 6063460, 4152485 ####[facility] [address] [place] [address] RBC (Bld) [#/Vol] 5.2 E12/L Normal 4.3-5.[address] [facility] Comment on above: Performed By: #### 2 213483, 58931515, 7521760, 5542907 ####[facility] [address] [place] [address] WBC corrected for nucl RBC Auto (Bld) [#/Vol] 8.3 E9/L Normal 4.0-11.0 [facility] Comment on above: Performed By: #### 2 005803, 11706320, 8153967, 7816392 ####[facility] [address] [place] [address] CHEMISTRYOrdered By: Lab ROP User on 01-22-2023 Glucose [Mass/Vol] 121 mg/dL High 55 - 99 mg/dL [facility] [place] POC Subsection Comment on above: Result Comment: Gareth guerrero RN/ POC Device SN [id number] Invalid Interpretation Code [facility] [place] POC Subsection POC User ID [id number] Invalid Interpretation Code [facility] [place] [...] [place] Chem S Globulin (S) [Mass/Vol] 3.6 g/dL [...] [Mass/Vol] 3.7 g/dL Normal 3.3-5.[address] [facility] Comment on above: Performed By: #### 2 065128, 78183555, 1391054, 3357756 ####[facility] [address] [place] [address] Albumin/Globulin (S) [Mass conc ratio] 1.0 Low 1.1-2.[address] [facility] Comment on above: Performed By: #### 2 683508, 24750671, 3032362, 5648873 ####[facility] [address] [place] [address] ALP [Catalytic activity/Vol] 47 Int._Unit/L Normal 21-[address] [facility] Comment on above: Performed By: #### 2 866570, 88406075, 9104484, 5478223 ####[facility] [address] [place] [address] ALT No additional P-5'-P [Catalytic activity/Vol] 21 Int._Unit/L Normal 6-[address] [facility] Comment on above: Performed By: #### 2 822258, 12642088, 9170048, 4245584 ####[facility] [address] [place] [address] Anion gap [Moles/Vol] 15 mmol/L Normal 6-16 [facility] Comment on above: Performed By: #### 2 622456, 66342848, 2661720, 1651920 ####[facility] [address] [place] [address] AST [Catalytic activity/Vol] 21 Int._Unit/L Normal 5-[address] [facility] Comment on above: Performed By: #### 2 876389, 81493459, 6105579, 0689764 ####[facility] [address] [place] [address] Bilirubin [Mass/Vol] 0.8 mg/dL Normal 0.0-1.1 [facility] Comment on above: Performed By: #### 2 371938, 25750573, 2118936, 5632304 ####[facility] [address] [place] [address] Calcium [Mass/Vol] 9.6 mg/dL Normal 8.9-11.[address] [facility] Comment on above: Performed By: #### 2 854969, 20414287, 1990497, 4785320 ####[facility] [address] [place] [address] Chloride [Moles/Vol] 97 mmol/L Low 101-111 [facility] Comment on above: Performed By: #### 2 279383, 19513466, 0566098, 4098053 ####[facility] [address] [place] [address] CO2 [Moles/Vol] 30 mmol/L Normal 21-31 [facility] Comment on above: Performed By: #### 2 761004, 10212172, 5520667, 5912699 ####[facility] [address] [place] [address] Creatinine [Mass/Vol] 1.3 mg/dL Normal 0.5-1.3 [facility] Comment on above: Performed By: #### 2 813447, 00463036, 3798028, 5988994 ####[facility] [address] [place] [address] Globulin (S) [Mass/Vol] 3.6 g/dL Normal 1.4-4.0 [facility] Comment on above: Performed By: #### 2 793268, 12104688, 5094942, 4241865 ####[facility] [address] [place] [address] Glucose [Mass/Vol] 124 mg/dL Normal 55-[address] [facility] Comment on above: Result Comment: If t his glucose result represents a fasting glucose, interpretation should refer to the following reference range: 55-99 mg/dL Performed By: #### 2 017612, 76711437, 0586832, 5244178 ####[facility] [address] [place] [address] Potassium [Moles/Vol] 4.0 mmol/L Normal 3.5-5.3 [facility] Comment on above: Performed By: #### 2 485048, 57133405, 0336857, 8265961 ####[facility] [address] [place] [address] Protein [Mass/Vol] 7.3 g/dL Normal 6.0-7.[address] [facility] Comment on above: Performed By: #### 2 881113, 98715940, 0036741, 9902721 ####[facility] [address] [place] [address] Sodium [Moles/Vol] 138 mmol/L Normal 135-[address] [facility] Comment on above: Performed By: #### 2 165566, 11341961, 8933537, 0675426 ####[facility] [address] [place] [address] Urea nitrogen [Mass/Vol] 42 mg/dL High 5-[address] [facility] Comment on above: Performed By: #### 2 315903, 08235596, 2270096, 5323701 ####[facility] [address] [place] [address] Urea nitrogen/Creatinine [Mass ratio] 32 No Units High 10-[address] [facility] Comment on above: Performed By: #### 2 114240, 87439532, 4720663, 8044165 ####[facility] [address] [place] [address] Capillary Glucose POCon Glucose [Mass/Vol] 121 mg/dL High 55-[address] [facility] Comment on above: Result Comment: Gareth guerrero RN/ Performed By: #### 2 72036147 ####[facility] [address] [place] [address] Coding Queryon 01-22-2023 Coding Query Normal [facility] HEMATOLOGYOrdered By: SYSTEM SYSTEM on [...] Correspondence Off ice 01-22-2023 Insurance Correspondence Office [id number]#1.0 0CD:[address] [facility] Interdisciplinary Note - Santosh e Manageron 01-22-2023 Interdisciplinary Note - Chinchilla Machine Operator Normal [facility] Comment on above: Result Comment: Elec tronically Signed By: Natalie Grant\.br\Date and Time Signed: 01/22/23 11:13 EDT Interdisciplinary Note - Murphy n 01-22-2023 Interdisciplinary Note - OT Normal [facility] Interdisciplinary Note - PTo n 01-22-2023 Interdisciplinary Note - PT Normal [facility] Message from Medicareon Message from Medicare [id number]#1.0 0CD:[address] [facility] Progress Note-Physicianon Progress Note-Physician Normal [facility] Comment on above: Result Comment: Elec tronically Signed By: New Johnson DO\Date and Time Signed: 01/22/23 14:15 EDT eGFRon 01-22-2023 GFR/1.73 sq M.predicted among non-blacks MDRD (S/P/Bld) [Vol rate/Area] 56 mL/min/1.73 m2 Low >=[address] [facility] Comment on above: Order Comment: Order added by Discern Expert. Result Comment: Physiologist earnest kidney disease could be indicated at eGFR's of less than 60 mL/min/1.73m2. Kidney failure is indicated at less than 15 mL/min/1.73m2. Performed By: #### 2 640127, 45234989, 1651054, 8094392 ####[facility] [address] [place] [address] Auto Diffon 01-21-2023 Basophils/100 WBC (Bld) 0.9 % Normal 0.0-2.0 [facility] Comment on above: Order Comment: Order Added by Discern Expert. Performed By: #### 2 125793, 3098400, 16924178, 07797394, 0104225, 8731342 ####[facility] [address] [place] [address] Basophils/Leukocytes Auto (Bld) [Pure # fraction] 0.1 E9/L Normal 0.0-0.[address] [facility] Comment on above: Order Comment: Order Added by Discern Expert. Performed By: #### 2 408736, 4771653, 37658191, 28841119, 5771411, 2587976 ####[address] [place] [address] Eosinophils/100 WBC (Bld) 3.3 % Normal 0.0-8.[address] [facility] Comment on above: Order Comment: Order Added by Discern Expert. Performed By: #### 2 010016, 3775310, 59337530, 59767226, 3658540, 8550427 ####[address] [place] [address] Eosinophils/Leukocytes Auto (Bld) [Pure # fraction] 0.4 E9/L Normal 0.0-0.[address] [facility] Comment on above: Order Comment: Order Added by Discern Expert. Performed By: #### 2 537587, 4573797, 82641267, 80167873, 6519547, 9217867 ####[address] [address] Lymphocytes/100 WBC (Bld) 10.4 % Low 14.0-50.[address] [facility] Comment on above: Order Comment: Order Added by Discern Expert. Performed By: #### 2 179382, 3465048, 10862369, 02522938, 6799417, 4705449 ####[facility] [address] [place] [address] Lymphocytes/Leukocytes Auto (Bld) [Pure # fraction] 1.2 E9/L Normal 1.0-4.[address] [facility] Comment on above: Order Comment: Order Added by Discern Expert. Performed By: #### 2 980705, 6050282, 40354639, 16329611, 1411352, 1738745 ####[address] [place] [address] Monocytes/100 WBC (Bld) 7.4 % Normal 4.0-14.0 [facility] Comment on above: Order Comment: Order Added by Discern Expert. Performed By: #### 2 685067, 3003993, 71923714, 67081241, 9317189, 8844475 ####[facility] [address] [place] [address] Monocytes/Leukocytes Auto (Bld) [Pure # fraction] 0.9 E9/L Normal 0.2-1.[address] [facility] Comment on above: Order Comment: Order Added by Discern Expert. Performed By: #### 2 011558, 6683254, 90377050, 63284452, 0603843, 2556111 ####[facility] [address] [place] [address] Neutrophils/100 WBC (Bld) 78.0 % High 36.0-75.[address] [facility] Comment on above: Order Comment: Order Added by Discern Expert. Performed By: #### 2 023222, 0632090, 14726695, 58682982, 0213384, 5267108 ####[facility] [address] [place] [address] Neutrophils/Leukocytes Auto (Bld) [Pure # fraction] 9.1 E9/L High 2.0-7.[address] [facility] Comment on above: Order Comment: Order Added by Discern Expert. Performed By: #### 2 308277, 1326470, 61287381, 49212136, 2387415, 1250043 ####[facility] [address] [place] [address] BMPon 01-21-2023 Creatinine [Mass/Vol] 1.2 mg/dL Normal 0.5-1.3 [facility] Comment on above: Performed By: #### 2 484753, 4163389, 79096194, 65140104, 5317212, 9066424 ####[facility] [address] [place] [address] Urea nitrogen [Mass/Vol] 38 mg/dL High 5-[address] [facility] Comment on above: Performed By: #### 2 472355, 2128859, 74632157, 82525836, 4240817, 9009195 ####[facility] [address] [place] [address] Urea nitrogen/Creatinine [Mass ratio] 32 No Units High 10-[address] [facility] Comment on above: Performed By: #### 2 797146, 1704608, 64668753, 58213240, 2157308, 2679161 ####[facility] [address] [place] [address] Anion gap [Moles/Vol] 14 mmol/L Normal 6-16 [facility] Comment on above: Performed By: #### 2 314925, 3459141, 37410809, 09933462, 6953897, 0192514 ####[facility] [address] [place] [address] Calcium [Mass/Vol] 9.9 mg/dL Normal 8.9-11.[address] [facility] Comment on above: Performed By: #### 2 090297, 8495638, 19000664, 07630489, 6739651, 9807285 ####[facility] [address] [place] [address] Chloride [Moles/Vol] 95 mmol/L Low 101-111 [facility] Comment on above: Performed By: #### 2 895520, 2169522, 06186855, 54019840, 7453816, 6405995 ####[facility] [address] [place] [address] CO2 [Moles/Vol] 31 mmol/L Normal 21-31 [facility] Comment on above: Performed By: #### 2 980359, 2975213, 86714059, 82775579, 6887425, 8669273 ####[facility] [address] [place] [address] Glucose [Mass/Vol] 124 mg/dL Normal 55-[address] [facility] Comment on above: Result Comment: If t his glucose result represents a fasting glucose, interpretation should refer to the following reference range: 55-99 mg/dL Performed By: #### 2 928389, 8447827, 95409325, 71126477, 7723694, 5859216 ####[facility] [address] [place] [address] Potassium [Moles/Vol] 4.3 mmol/L Normal 3.5-5.3 [facility] Comment on above: Performed By: #### 2 874420, 1677057, 02009735, 85819996, 4273548, 6809940 ####[facility] [address] [place] [address] Sodium [Moles/Vol] 136 mmol/L Normal 135-[address] [facility] Comment on above: Performed By: #### 2 810878, 6578621, 00757891, 11142122, 6326376, 0282561 ####[address] [address] CBC w/ Auto Diffon 3 Erythrocyte distribution width (RBC) [Ratio] 15.4 % High 10.9-14.[address] [facility] Comment on above: Performed By: #### 2 335016, 8287393, 92622909, 25661654, 9166490, 9256373 ####[address] [place] [address] Hematocrit (Bld) [Volume fraction] 42.5 % Normal 37.7-49.[address] [facility] Comment on above: Performed By: #### 2 043193, 7255282, 00323177, 42071575, 0799548, 9624120 ####[facility] [address] [place] [address] Hemoglobin (Bld) [Mass/Vol] 13.9 g/dL Normal 13.5-17.[address] [facility] Comment on above: Performed By: #### 2 678806, 1850545, 99740516, 45580910, 6254966, 6720522 ####[facility] [address] [place] [address] MCH (RBC) [Entitic mass] 27.3 pg Normal 27.0-34.[address] [facility] Comment on above: Performed By: #### 2 277573, 6759461, 35488119, 15804942, 5825621, 8053191 ####[address] [address] MCHC (RBC) [Mass/Vol] 32.7 g/dL Normal 31.4-36.0 [facility] Comment on above: Performed By: #### 2 010227, 7291022, 23365494, 82592970, 6519591, 3517289 ####[address] [address] MCV (RBC) [Entitic vol] 83.4 fL Normal 80.0-100.0 [facility] Comment on above: Performed By: #### 2 411422, 0323505, 14587096, 46023295, 4940240, 6089596 ####[facility] [address] [place] [address] Platelet mean volume (Bld) [Entitic vol] 8.6 fL Normal 6.4-10.[address] [facility] Comment on above: Performed By: #### 2 385366, 3927671, 56321339, 51741086, 8532120, 1438772 ####[address] [address] Platelets (Bld) [#/Vol] 252.0 E9/L Normal 150.0-500.[address] [facility] Comment on above: Performed By: #### 2 552114, 1715989, 73180350, 45428306, 0953960, 6816809 ####[address] [address] RBC (Bld) [#/Vol] 5.1 E12/L Normal 4.3-5.[address] [facility] Comment on above: Performed By: #### 2 356978, 3118383, 43379199, 53357616, 1055138, 2461257 ####[facility] [address] [place] [address] WBC corrected for nucl RBC Auto (Bld) [#/Vol] 11.6 E9/L High 4.0-11.0 [facility] Comment on above: Performed By: #### 2 894688, 4533433, 88624183, 95799525, 8656843, 8111351 ####[facility] [address] [place] [address] CHEMISTRYOrdered By: SYSTEM SYSTEM on 01-21-2023 Troponin [...] [place] Chem S Globulin (S) [Mass/Vol] 3.8 g/dL [...] Treatmenton 12-24 Consent for Treatment [id number]#1.0 0CD:[address] [facility] ED Clinical Summaryon 2022 ED Clinical Summary Normal [facility] ED Note-Physicianon 01-22-20 23 ED Note-Physician Normal [facility] Comment on above: Result Comment: Elec tronically Signed By: Gustavo Yusuf DO.br\Date and Time Signed: 01/21/23 19:26 EDT ED Patient Education Noteon 01-21-2023 ED Patient Education Note Normal [facility] ED Patient Summaryon 023 ED Patient Summary Normal [facility] HEMATOLOGYOrdered By: SYSTEM SYSTEM on [...] 8.6 fL Normal 6.4 - 10.8 fL [facility] [place] [facility] [place] HemeAutoSS Platelets (Bld) [#/Vol] 252.0 E9/L Normal 150. 0 - 500.0 E9/L [facility] [place] [place] HemeAutoSS RBC (Bld) [#/Vol] 5.1 E12/L Normal 4.3 - 5.9 E12/L [facility] [place] HemeAutoSS WBC corrected for nucl RBC Auto (Bld) [#/Vol] 11.6 E9/L High 4.0 - 11.0 E9/L [facility] [place] HemeAutoSS Hep Func Panelon 01-21-2023 Bilirubin.direct [Mass/Vol] 0.1 mg/dL Normal 0.1-0.[address] [facility] Comment on above: Performed By: #### 2 646356, 6035622, 25676752, 80394843, 3034074, 8588361 ####[facility] [address] [place] [address] Bilirubin.indirect [Mass or moles/Vol] 0.8 mg/dL Normal 0.1-0.[address] [facility] Comment on above: Performed By: #### 2 221160, 3485652, 49985250, 41066234, 2511141, 8442559 ####[facility] [address] [place] [address] Albumin [Mass/Vol] 3.9 g/dL Normal 3.3-5.[address] [facility] Comment on above: Performed By: #### 2 269310, 2119930, 21188865, 02617381, 3829150, 5967919 ####[facility] [address] [place] [address] Albumin/Globulin (S) [Mass conc ratio] 1.0 Low 1.1-2.[address] [facility] Comment on above: Performed By: #### 2 430678, 6427415, 79142444, 36732646, 2916726, 8945402 ####[facility] [address] [place] [address] ALP [Catalytic activity/Vol] 50 Int._Unit/L Normal 21-[address] [facility] Comment on above: Performed By: #### 2 466275, 1526546, 76323613, 96210270, 0534201, 6567790 ####[facility] [address] [place] [address] ALT No additional P-5'-P [Catalytic activity/Vol] 23 Int._Unit/L Normal 6-[address] [facility] Comment on above: Performed By: #### 2 325883, 4429595, 96316531, 53485433, 4628557, 1738858 ####[facility] [address] [place] [address] AST [Catalytic activity/Vol] 22 Int._Unit/L Normal 5-[address] [facility] Comment on above: Performed By: #### 2 356764, 7834379, 44666730, 87918573, 8944518, 0232719 ####[facility] [address] [place] [address] Bilirubin [Mass/Vol] 0.9 mg/dL Normal 0.0-1.1 [facility] Comment on above: Performed By: #### 2 987347, 6838612, 30136023, 49728640, 8464956, 7264738 ####[facility] [address] [place] [address] Globulin (S) [Mass/Vol] 3.8 g/dL Normal 1.4-4.0 [facility] Comment on above: Performed By: #### 2 248907, 3473582, 11914314, 61785219, 5018302, 1594149 ####[facility] [address] [place] [address] Protein [Mass/Vol] 7.7 g/dL Normal 6.0-7.[address] [facility] Comment on above: Performed By: #### 2 408162, 5559185, 72129314, 46324407, 1224133, 6441785 ####[facility] [address] [place] [address] Usp Recordson 01-21 Usp Records [id number]:[address] [facility] Troponin 0 Hr.on 01-21-2023 Troponin I.cardiac [Mass/Vol] 25.50 pg/mL Normal 15.90-38.[address] [facility] Comment on above: Result Comment: The 95% CI (Confidence Interval) PPV (Positive Predictive Value) for myocardial infarction in females is 38 pg/mL, in males 51 pg/mL. The results should be used in conjunction with clinical conditions of myocardial infarction.([employer] High Sensitivity Troponin I Instructions For Use, [place], December 2017) Performed By: #### 2 701483, 0822750, 15034842, 24981515, 0216219, 9941739 ####[address] [address] Troponin 3 Hr.on 01-21-2023 Troponin I.cardiac [Mass/Vol] 23.90 pg/mL Normal 15.90-38.[address] [facility] Comment on above: Result Comment: The 95% CI (Confidence Interval) PPV (Positive Predictive Value) for myocardial infarction in females is 38 pg/mL, in males 51 pg/mL. The results should be used in conjunction with clinical conditions of myocardial infarction.([employer] High Sensitivity Troponin I Instructions For Use, [place], December 2017) Performed By: #### 1 6010043 ####[facility] [address] [place] [address] UA With Cult Reflexon 2022 Bilirubin Ql (U) Negative Normal Negative [facility] Comment on above: Performed By: #### 1 9888868 ####[facility] [address] [place] [address] Clarity (U) CLEAR Normal Clear [facility] Comment on above: Performed By: #### 1 7102870 ####[facility] [address] [place] [address] Color (U) STRAW Abnormal Yellow [facility] Comment on above: Performed By: #### 1 3361955 ####Tanner [address] [address] Epithelial cells.squamous LM.HPF (Urine sed) [#/Area] 0-2 Normal 0-2 [facility] Comment on above: Performed By: #### 1 5437214 ####[address] [address] Glucose Test strip (U) [Mass/Vol] Negative Normal Negative [facility] Comment on above: Performed By: #### 1 1000801 ####[address] [address] Hemoglobin Ql (U) Negative Normal Negative [facility] Comment on above: Performed By: #### 1 0710740 ####[address] [address] Ketones (U) [Mass/Vol] Negative Normal Negative [facility] Comment on above: Performed By: #### 1 5620637 ####[address] [address] [place].plasma/[place].R BC (Bld) [Mass ratio] 0-3 Normal 0-3 [facility] Comment on above: Performed By: #### 1 3935736 ####[address] [address] Nitrite Ql (U) Negative Normal Negative [facility] Comment on above: Performed By: #### 1 8132243 ####[address] [address] pH (U) 6.0 [pH] Invalid Interpretation Code 5.0-9.[address] [facility] Comment on above: Performed By: #### 1 8331561 ####[address] [address] Protein (U) [Mass/Vol] Negative Normal Negative [facility] Comment on above: Performed By: #### 1 9505615 ####[address] [address] Specific gravity (U) [Rel density] 1.010 Invalid Interpretation Code 1.005-1.[address] [facility] Comment on above: Performed By: #### 1 1051722 ####[facility] [address] [place] [address] Type of Urine collection method Clean Catch Normal [facility] Comment on above: Performed By: #### 1 9237703 ####[facility] [address] [place] [address] Urobilinogen Qn (U) 0.2 {Lei'U}/dL Normal 0.0-1.[address] [facility] Comment on above: Performed By: #### 1 4575622 ####[facility] [address] [place] [address] WBC Auto Ql (U) Negative Normal Negative [facility] Comment on above: Performed By: #### 1 1875331 ####[facility] [address] [place] [address] WBC LM.HPF (Urine sed) [#/Area] 0-5 Normal 0-[address] [facility] Comment on above: Performed By: #### 1 1681088 ####[facility] [address] [place] [address] URINALYSISOrdered By: Karen Vergara on 01-21-2023 Bilirubin [...] PM) Normal Negative [facility] UA Auto SS [place].plasma/[place].R BC (Bld) [Mass ratio] 0-3 /HPF Normal [...] [facility] UA Auto SS Urobilinogen Qn (U) 0.7666110 {Lei'U}/dL Normal 0.0 - 1.0 EU/dL [facility] [...] 62 mL/min/1.73 m2 Normal >=[address] [facility] Comment on above: Order Comment: Order added by Discern Expert. Result Comment: Physiologist earnest kidney disease could be indicated at eGFR's of less than 60 mL/min/1.73m2. Kidney failure is indicated at less than 15 mL/min/1.73m2. Performed By: #### 2 094487, 3545832, 45000045, 50556786, 9820268, 8295188 ####[facility] [address] [place] [address] Discharge Instructionson Discharge Instructions [id number] 0CD:[address] [facility] Capillary Glucose POCon 12-23 Glucose [Mass/Vol] 117 mg/dL High 55-[address] [facility] Comment on above: Result Comment: Yazmin bri Meter Performed By: #### 2 06280953 ####[facility] [address] [place] [address] Family Medicine Office/Clini c Noteon 01-15-2023 Family Medicine Office/Clinic Note Normal [facility] Comment on above: Result Comment: Elec tronically Signed By: SHAISTA POTTS, Dennise.br\Date and Time Signed: 01/15/23 16:46 EDT Capillary Glucose POCon 12-23 Glucose [Mass/Vol] 121 mg/dL High 55-[address] [facility] Comment on above: Result Comment: Yazmin bri Meter Performed By: #### 2 [id number] ####[facility] [address] [place] [address] Capillary Glucose POCon 12-23 Glucose [Mass/Vol] 127 mg/dL High 55-[address] [facility] Comment on above: Result Comment: Yazmin bri Meter Performed By: #### 2 65650580 ####[facility] [address] [place] [address] Capillary Glucose POCon 12-22 Glucose [Mass/Vol] 104 mg/dL High 55-[address] [facility] Comment on above: Result Comment: Yazmin bri Meter Performed By: #### 2 70944575 ####[facility] [address] [place] [address] Capillary Glucose POCon 12-22 Glucose [Mass/Vol] 121 mg/dL High 55-[address] [facility] Comment on above: Result Comment: Yazmin bri Meter Performed By: #### 2 40901109 ####[facility] [address] [place] [address] Capillary Glucose POCon 12-22 Glucose [Mass/Vol] 110 mg/dL High 55-[address] [facility] Comment on above: Result Comment: Yazmin bri Meter Performed By: #### 2 72889914 ####[facility] [address] [place] [address] Capillary Glucose POCon 12-22 Glucose [Mass/Vol] 119 mg/dL High 55-[address] [facility] Comment on above: Result Comment: Yazmin bri Meter Performed By: #### 2 41890653 ####[facility] [address] [place] [address] Capillary Glucose POCon 12-22 Glucose [Mass/Vol] 141 mg/dL High 55-[address] [facility] Comment on above: Result Comment: Yazmin bri Meter Performed By: #### 2 49186077 ####[facility] [address] [place] [address] Capillary Glucose POCon 12-22 Glucose [Mass/Vol] 104 mg/dL [facility] 55-[address] [facility] Comment on above: Result Comment: Yazmin bri Meter Performed By: #### 2 88891943 ####[facility] [address] [place] [address] BMPon 12-30-2022 Calcium [Mass/Vol] 9.1 mg/dL Normal 8.9-11.[address] [facility] Comment on above: Performed By: #### 7 53392707, 7862856, 45074499 ####[facility] [address] [place] [address] Anion gap [Moles/Vol] 18 mmol/L High 6-16 [facility] Comment on above: Performed By: #### 7 98427551, 0626753, 61524794 ####[facility] [address] [place] [address] Chloride [Moles/Vol] 91 mmol/L Low 101-111 [facility] Comment on above: Performed By: #### 7 79502133, 9622218, 30481314 ####[facility] [address] [place] [address] CO2 [Moles/Vol] 30 mmol/L Normal 21-31 [facility] Comment on above: Performed By: #### 7 09579299, 7172978, 63569474 ####[facility] [address] [place] [address] Creatinine [Mass/Vol] 1.3 mg/dL Normal 0.5-1.3 [facility] Comment on above: Performed By: #### 7 34695864, 0545315, 40478457 ####[facility] [address] [place] [address] Glucose [Mass/Vol] 171 mg/dL Normal 55-[address] [facility] Comment on above: Result Comment: If t his glucose result represents a fasting glucose, interpretation should refer to the following reference range: 55-99 mg/dL Performed By: #### 7 70861043, 4267790, 17520187 ####[facility] [address] [place] [address] Potassium [Moles/Vol] 4.2 mmol/L Normal 3.5-5.3 [facility] Comment on above: Performed By: #### 7 14252258, 6643324, 10592601 ####[facility] [address] [place] [address] Sodium [Moles/Vol] 135 mmol/L Normal 135-[address] [facility] Comment on above: Performed By: #### 7 36313272, 2290611, 10486257 ####[facility] [address] [place] [address] Urea nitrogen [Mass/Vol] 36 mg/dL High 5-[address] [facility] Comment on above: Performed By: #### 7 40485873, 1484187, 27416127 ####[facility] [address] [place] [address] Urea nitrogen/Creatinine [Mass ratio] 28 No Units High 10-[address] [facility] Comment on above: Performed By: #### 7 59683202, 3258641, 74136671 ####[facility] [address] [place] [address] NuwP0qfy 08-09-2023 HbA1c (Bld) [Mass fraction] 6.9 % High <=5.[address] [facility] Comment on above: Performed By: #### 7 76032820, 0807164, 87734429 ####[facility] [address] [place] [address] eGFRon 12-30-2022 GFR/1.73 sq M.predicted among non-blacks MDRD (S/P/Bld) [Vol rate/Area] 56 mL/min/1.73 m2 Low >=[address] [facility] Comment on above: Order Comment: Order added by Discern Expert. Result Comment: Physiologist earnest kidney disease could be indicated at eGFR's of less than 60 mL/min/1.73m2. Kidney failure is indicated at less than 15 mL/min/1.73m2. Performed By: #### 7 10805899, 6129364, 94973957 ####[facility] [address] [place] [address] Capillary Glucose POCon 08-0 Glucose [Mass/Vol] 141 mg/dL High 55-[address] [facility] Comment on above: Result Comment: Yazmin bri Meter Performed By: #### 2 22080370 ####[facility] [address] [place] [address] Capillary Glucose POCon 0 Glucose [Mass/Vol] 101 mg/dL High 55-[address] [facility] Comment on above: Result Comment: Yazmin bri Meter Performed By: #### 2 28214455 ####[facility] [address] [place] [address] C Blood Charcoalon 3 Blood Culture Charcoal Normal [facility] Comment on above: Performed By: #### 1 7164365 ####[facility] [address] [place] [address] Capillary Glucose POCon 08-0 Glucose [Mass/Vol] 135 mg/dL High 55-[address] [facility] Comment on above: Result Comment: Yazmin bri Meter Performed By: #### 2 73395294 ####[facility] [address] [place] [address] Capillary Glucose POCon 0 Glucose [Mass/Vol] 110 mg/dL High 55-[address] [facility] Comment on above: Result Comment: Yazmin bri Meter Performed By: #### 2 32583517 ####[facility] [address] [place] [address] Consultation Noteon 12-24-19 Consultation Note Normal [facility] Comment on above: Result Comment: Elec tronically Signed By: Marcus POTTS, [place]\.br\Date and Time Signed: 12/23/22 07:33 EDT Family Medicine Office/Clini c Noteon 12-23-2022 Family Medicine Office/Clinic Note Normal [facility] Comment on above: Result Comment: Elec tronically Signed By: SHAISTA POTTS, [place]a\.br\Date and Time Signed: 12/22/22 22:31 EDT C Blood Charcoalon Blood Culture Charcoal Normal [facility] Comment on above: Performed By: #### 1 8751005 ####[facility] [address] [place] [address] U Legi Agon 12-22-2022 L. pneumophila 1 Ag IA Ql (U) Negative Invalid Interpretation Code Negative [facility] Comment on above: Result Comment: Pres umptive negative for L. pneumophila serogroup 1 antigen in urine,suggesting no recent or current infection. Legionnaires' diseasecannot be ruled out since other serogroups and species may also causedisease.Performed at: [address] [id number] MD Tyler Gurrola Performed By: #### 2 033636 ####[facility] [address] [place] [address] C Urineon 12-21-2022 Bacteria identified Cx Nom (U) Normal [facility] Comment on above: Performed By: #### 1 7225436, 5506831 ####[facility] [address] [place] [address] Capillary Glucose POCon 11-23 Glucose [Mass/Vol] 134 mg/dL High 55-[address] [facility] Comment on above: Result Comment: Yazmin bri Meter Performed By: #### 2 83054669 ####[address] [address] Auto DiffOrdered By: SYSTEM SYSTEM on 12-20-2022 Basophils/100 WBC (Bld) 0.5 % Normal 0.0-2.[address] [facility] HemeAutoSS Comment on above: Order Comment: Order Added by Discern Expert. Performed By: #### 2 857021, 2421183, 00755764, 6058115 ####[address] [address] Basophils/Leukocytes Auto (Bld) [Pure # fraction] 0.0 E9/L Normal 0.0-0.2 [facility] HemeAutoSS Comment on above: Order Comment: Order Added by Discern Expert. Performed By: #### 2 315786, 7724640, 15720475, 9013754 ####[address] [address] Eosinophils/100 WBC (Bld) 7.9 % Normal 0.0-8.0 [facility] HemeAutoSS Comment on above: Order Comment: Order Added by Discern Expert. Performed By: #### 2 241342, 3924773, 84428539, 9933274 ####[address] [address] Eosinophils/Leukocytes Auto (Bld) [Pure # fraction] 0.8 E9/L High 0.0-0.5 [facility] HemeAutoSS Comment on above: Order Comment: Order Added by Discern Expert. Performed By: #### 2 560860, 0413588, 13749243, 2440618 ####[address] [address] Lymphocytes/100 WBC (Bld) 9.5 % Low 14.0-50.0 [facility] HemeAutoSS Comment on above: Order Comment: Order Added by Discern Expert. Performed By: #### 2 902768, 8283743, 62339633, 1592465 ####[address] [address] Lymphocytes/Leukocytes Auto (Bld) [Pure # fraction] 1.0 E9/L Normal 1.0-4.0 [facility] HemeAutoSS Comment on above: Order Comment: Order Added by Discern Expert. Performed By: #### 2 287461, 8067677, 92421092, 5884593 ####[address] [address] Monocytes/100 WBC (Bld) 7.6 % Normal 4.0-14.[address] [facility] HemeAutoSS Comment on above: Order Comment: Order Added by Discern Expert. Performed By: #### 2 047953, 3459475, 80712388, 3931608 ####[address] [address] Monocytes/Leukocytes Auto (Bld) [Pure # fraction] 0.8 E9/L Normal 0.2-1.0 [facility] HemeAutoSS Comment on above: Order Comment: Order Added by Discern Expert. Performed By: #### 2 163455, 9620640, 47508197, 1595748 ####[address] [address] Neutrophils/100 WBC (Bld) 74.5 % Normal 36.0-75.0 [facility] HemeAutoSS Comment on above: Order Comment: Order Added by Discern Expert. Performed By: #### 2 914980, 7901935, 04575338, 3647642 ####[address] [address] Neutrophils/Leukocytes Auto (Bld) [Pure # fraction] 7.7 E9/L High 2.0-7.5 [facility] HemeAutoSS Comment on above: Order Comment: Order Added by Discern Expert. Performed By: #### 2 118387, 2256798, 98584657, 7621795 ####[address] [address] BMPOrdered By: SYSTEM SYSTEM on 12-20-2022 Anion gap [Moles/Vol] 8 mmol/L Normal 6-16 [facility] C Remisol Comment on above: Performed By: #### 2 667669, 3486633, 60840528, 5244325 ####[facility] [address] [place] [address] Calcium [Mass/Vol] 7.9 mg/dL Low 8.9-11.1 [facility] R emisol Comment on above: Performed By: #### 2 886293, 5153019, 68011397, 5101567 ####[facility] [address] [address] Chloride [Moles/Vol] 105 mmol/L Normal 101-111 [facility] Remisol Comment on above: Performed By: #### 2 755499, 5431869, 84889942, 1138316 ####[facility] [address] [address] CO2 [Moles/Vol] 25 mmol/L Normal 21-31 [facility] Ashwin luanne Comment on above: Performed By: #### 2 317514, 3683808, 38602309, 1979329 ####[facility] [address] [address] Creatinine [Mass/Vol] 1.0 mg/dL Normal 0.5-1.3 [facility] C Remisol Comment on above: Performed By: #### 2 847751, 0706235, 73184408, 4448758 ####[facility] [address] [address] Glucose [Mass/Vol] 106 mg/dL Normal 55-199 [facility] [place] R emisol Comment on above: Result Comment: If t his glucose result represents a fasting glucose, interpretation should refer to the following reference range: 55-99 mg/dL Performed By: #### 2 263970, 1444379, 58765996, 2003931 ####[facility] [address] [place] [address] Potassium [Moles/Vol] 4.4 mmol/L Normal 3.5-5.3 [facility] C Remisol Comment on above: Performed By: #### 2 555056, 3413796, 31225101, 8460920 ####[facility] [address] [place] [address] Sodium [Moles/Vol] 134 mmol/L Low 135-145 [facility] [place] R emisol Comment on above: Performed By: #### 2 253871, 5018530, 37954450, 6903598 ####[facility] [address] [place] [address] Urea nitrogen [Mass/Vol] 22 mg/dL High 5-21 [facility] [place] Remisol Comment on above: Performed By: #### 2 863043, 2835342, 22732394, 2937378 ####[address] [address] BMPon 12-20-2022 Urea nitrogen/Creatinine [Mass ratio] 22 No Units High 10-[address] [facility] Comment on above: Performed By: #### 2 664681, 4480677, 68259716, 0135297 ####[address] [address] CBC w/ Auto DiffOrdered By: Bony Hdez on 12-20-2022 Erythrocyte distribution width (RBC) [Ratio] 14.7 % High 10.9-14.2 [facility] [place] HemeAutoSS Comment on above: Performed By: #### 2 401478, 8705296, 99022053, 0284592 ####[address] [address] Hematocrit (Bld) [Volume fraction] 34.6 % Low 37.7-49.0 [facility] [place] HemeAutoSS Comment on above: Performed By: #### 2 997468, 5629154, 98036593, 0275376 ####[address] [address] Hemoglobin (Bld) [Mass/Vol] 11.7 g/dL Low 13.5-17.5 [facility] [place] HemeAutoSS Comment on above: Performed By: #### 2 524016, 1292064, 22217386, 6774831 ####[address] [place] [address] MCH (RBC) [Entitic mass] 28.6 pg Normal 27.0-34.0 [facility] HemeAutoSS Comment on above: Performed By: #### 2 031806, 0019055, 82754989, 9550031 ####[facility] [address] [address] MCHC (RBC) [Mass/Vol] 33.7 g/dL Normal 31.4-36.0 F[facility] C HemeAutoSS Comment on above: Performed By: #### 2 058023, 9521983, 01526325, 2201831 ####[place] [address]33257 MCV (RBC) [Entitic vol] 84.7 fL Normal 80.0-100.0 F C HemeAutoSS Comment on above: Performed By: #### 2 081836, 8703646, 74834861, 8465864 ####[facility] [place] 68[address]257 Platelet mean volume (Bld) [Entitic vol] 9.5 fL Normal 6.4-10.8 [facility] HemeAutoSS Comment on above: Performed By: #### 2 034304, 0289705, 18368593, 4544629 ####[facility] [address] [address] Platelets (Bld) [#/Vol] 216.0 E9/L Normal 150.0-500.0 [facility] HemeAutoSS Comment on above: Performed By: #### 2 773905, 2387807, 45381184, 1113158 ####[facility] [address] [address] RBC (Bld) [#/Vol] 4.1 E12/L Low 4.3-5.9 [facility] HemeAutoSS Comment on above: Performed By: #### 2 155266, 9183428, 50011089, 2496793 ####[facility] [address] [address] WBC corrected for nucl RBC Auto (Bld) [#/Vol] 10.3 E9/L Normal 4.0-11.0 [facility] [facility] [employer] Comment on above: Performed By: #### 2 111070, 4265455, 51275696, 4178332 ####[facility] [address] [place] [address] CHEMISTRYOrdered By: Lab ROP User on 12-20-2022 Glucose [Mass/Vol] 109 mg/dL High 55 - 99 mg/dL [facility] [place] POC Subsection Comment on above: Result Comment: aGreth GARDINER POC Device SN [id number] Invalid Interpretation Code [facility] [place] POC Subsection POC User ID [id number] Invalid Interpretation Code [facility] [...] [Mass/Vol] 198 mg/dL High 55-[address] [facility] Comment on above: Result Comment: Yazmin bri Meter Performed By: #### 2 [id number] ####[facility] [address] [place] [address] Glucose [Mass/Vol] 109 mg/dL High 55-[address] [facility] Comment on above: Result Comment: Gareth GARDINER Performed By: #### 2 [id number] ####[facility] [address] [place] [address] Discharge Documentationon Discharge Documentation [id number]#1.0 0CD:[address] [facility] Inpatient Patient Summaryon 12-20-2022 Inpatient Patient Summary Normal [facility] Message from Medicareon 11-23 Message from Medicare [id number]#1. 00CD:[address] [facility] Monitor Recordon 12-20-2022 Monitor Record [id number]#1. 00CD:[address] [facility] Monitor Record [id number]#1. 00CD:[address] [facility] Monitor Record [id number]#1. 00CD:[address] [facility] Progress Note-Nurseon 2022 Progress Note-Nurse SBAR report called fanta Robert. Patient was transferred into wheelchair x2 stand pivot. Patient discharged to [facility] room 17. Transport by Samantha Lambert POCT. Normal [facility] Transfer Documentson 023 Transfer Documents [id number]#1.0 0CD:[address] [facility] eGFROrdered By: [employer] on 12-20-2022 GFR/1.73 sq M.predicted among non-blacks MDRD (S/P/Bld) [Vol rate/Area] 77 mL/min/1.73 m2 Normal >=59 [facility] [place] Chem S Comment on above: Order Comment: Order added by Discern Expert. Result Comment: Physiologist earnest kidney disease could be indicated at eGFR's of less than 60 mL/min/1.73m2. Kidney failure is indicated at less than 15 mL/min/1.73m2. Performed By: #### 2 299213, 1083845, 32093992, 4914372 ####[facility] [address] [place] [address] Auto Diffon 12-19-2022 Basophils/100 WBC (Bld) 0.4 % Normal 0.0-2.0 [facility] Comment on above: Order Comment: Order Added by Discern Expert. Performed By: #### 1 6939137, 0292557, 5442258, 4103722 ####[facility] [address] [place] [address] Basophils/Leukocytes Auto (Bld) [Pure # fraction] 0.0 E9/L Normal 0.0-0.[address] [facility] Comment on above: Order Comment: Order Added by Discern Expert. Performed By: #### 1 6367463, 2793952, 0526272, 1250849 ####[facility] [address] [place] [address] Eosinophils/100 WBC (Bld) 4.2 % Normal 0.0-8.[address] [facility] Comment on above: Order Comment: Order Added by Discern Expert. Performed By: #### 1 0950845, 0798267, 6605106, 6684808 ####[address] [place] [address] Eosinophils/Leukocytes Auto (Bld) [Pure # fraction] 0.6 E9/L High 0.0-0.[address] [facility] Comment on above: Order Comment: Order Added by Discern Expert. Performed By: #### 1 7820759, 8815292, 2028069, 7633981 ####[address] [address] Lymphocytes/100 WBC (Bld) 7.3 % Low 14.0-50.[address] [facility] Comment on above: Order Comment: Order Added by Discern Expert. Performed By: #### 1 6047171, 6709383, 5507539, 4189274 ####[address] [address] Lymphocytes/Leukocytes Auto (Bld) [Pure # fraction] 1.0 E9/L Normal 1.0-4.[address] [facility] Comment on above: Order Comment: Order Added by Discern Expert. Performed By: #### 1 9510184, 8174799, 1635700, 4785477 ####[address] [address] Monocytes/100 WBC (Bld) 6.5 % Normal 4.0-14.0 [facility] Comment on above: Order Comment: Order Added by Discern Expert. Performed By: #### 1 7412052, 5357302, 7265556, 7504769 ####[address] [address] Monocytes/Leukocytes Auto (Bld) [Pure # fraction] 0.9 E9/L Normal 0.2-1.[address] [facility] Comment on above: Order Comment: Order Added by Discern Expert. Performed By: #### 1 3162293, 4427415, 0831720, 7583842 ####[address] [place] [address] Neutrophils/100 WBC (Bld) 81.6 % High 36.0-75.[address] [facility] Comment on above: Order Comment: Order Added by Discern Expert. Performed By: #### 1 0707296, 0358968, 6219588, 4372086 ####[facility] [address] [place] [address] Neutrophils/Leukocytes Auto (Bld) [Pure # fraction] 10.7 E9/L High 2.0-7.[address] [facility] Comment on above: Order Comment: Order Added by Discern Expert. Performed By: #### 1 4095542, 9561833, 9071586, 7195677 ####[address] [place] [address] BMPon 12-19-2022 Anion gap [Moles/Vol] 11 mmol/L Normal 6-16 [facility] Comment on above: Performed By: #### 1 5972810, 2798764, 5517742, 4535644 ####[address] [place] [address] Calcium [Mass/Vol] 8.5 mg/dL Low 8.9-11.[address] [facility] Comment on above: Performed By: #### 1 6269108, 3516649, 8312173, 6395277 ####[facility] [address] [place] [address] Chloride [Moles/Vol] 103 mmol/L Normal 101-111 [facility] Comment on above: Performed By: #### 1 1817488, 4961393, 9811614, 1358663 ####[facility] [address] [place] [address] CO2 [Moles/Vol] 28 mmol/L Normal 21-31 [facility] Comment on above: Performed By: #### 1 8812846, 1860817, 1576990, 7225684 ####[facility] [address] [place] [address] Creatinine [Mass/Vol] 1.2 mg/dL Normal 0.5-1.3 [facility] Comment on above: Performed By: #### 1 1024482, 9808230, 1971682, 5008498 ####[facility] [address] [place] [address] Glucose [Mass/Vol] 86 mg/dL Normal 55-[address] [facility] Comment on above: Result Comment: If t his glucose result represents a fasting glucose, interpretation should refer to the following reference range: 55-99 mg/dL Performed By: #### 1 8086920, 5146138, 5955762, 2554357 ####[facility] [address] [place] [address] Potassium [Moles/Vol] 4.5 mmol/L Normal 3.5-5.3 [facility] Comment on above: Performed By: #### 1 3661123, 8314712, 7877605, 3959386 ####[facility] [address] [place] [address] Sodium [Moles/Vol] 137 mmol/L Normal 135-[address] [facility] Comment on above: Performed By: #### 1 7055085, 9886564, 0453908, 5949106 ####[facility] [address] [place] [address] Urea nitrogen [Mass/Vol] 35 mg/dL High 5-[address] [facility] Comment on above: Performed By: #### 1 4528594, 2657197, 1193407, 4362228 ####[facility] [address] [place] [address] Urea nitrogen/Creatinine [Mass ratio] 29 No Units High 10-[address] [facility] Comment on above: Performed By: #### 1 7618347, 6112357, 9112727, 8320286 ####[facility] [address] [place] [address] CBC w/ Auto Diffon 07-29-202 3 Erythrocyte distribution width (RBC) [Ratio] 15.0 % High 10.9-14.[address] [facility] Comment on above: Performed By: #### 1 6490858, 3881332, 7661649, 4564643 ####[facility] [address] [place] [address] Hematocrit (Bld) [Volume fraction] 38.4 % Normal 37.7-49.[address] [facility] Comment on above: Performed By: #### 1 3919681, 4441583, 7243442, 7302026 ####[address] [place] [address] Hemoglobin (Bld) [Mass/Vol] 12.7 g/dL Low 13.5-17.[address] [facility] Comment on above: Performed By: #### 1 6460890, 8343244, 3842781, 2620710 ####[address] [address] MCH (RBC) [Entitic mass] 27.9 pg Normal 27.0-34.[address] [facility] Comment on above: Performed By: #### 1 1510569, 0105899, 0143653, 9310572 ####[address] [place] [address] MCHC (RBC) [Mass/Vol] 32.9 g/dL Normal 31.4-36.0 [facility] Comment on above: Performed By: #### 1 0488895, 6727045, 3068313, 5473677 ####[address] [place] [address] MCV (RBC) [Entitic vol] 84.8 fL Normal 80.0-100.0 [facility] Comment on above: Performed By: #### 1 1726174, 7220808, 8310302, 2523631 ####[address] [place] [address] Platelet mean volume (Bld) [Entitic vol] 9.5 fL Normal 6.4-10.[address] [facility] Comment on above: Performed By: #### 1 9868799, 4912412, 1666434, 9094738 ####[facility] [address] [place] [address] Platelets (Bld) [#/Vol] 230.0 E9/L Normal 150.0-500.[address] [facility] Comment on above: Performed By: #### 1 6834122, 5394574, 0421914, 1378976 ####[address] [place] [address] RBC (Bld) [#/Vol] 4.5 E12/L Normal 4.3-5.[address] [facility] Comment on above: Performed By: #### 1 9044935, 4767919, 6784659, 3559407 ####[facility] [address] [place] [address] WBC corrected for nucl RBC Auto (Bld) [#/Vol] 13.1 E9/L High 4.0-11.0 [facility] Comment on above: Performed By: #### 1 1343004, 3557275, 7738742, 1243834 ####[facility] [address] [place] [address] CHEMISTRYOrdered By: Lab ROP User on 12-19-2022 Glucose [Mass/Vol] 210 mg/dL High 55 - 99 mg/dL [facility] [place] POC Subsection Comment on above: Result Comment: Gareth GARDINER POC Device SN [id number] Invalid Interpretation Code [facility] [place] POC Subsection POC User ID [id number] Invalid Interpretation Code [facility] POC Subsection POC Username JODITRESAPatti SHER Invalid Interpretation Code [facility] POC Subsection Glucose [Mass/Vol] 111 mg/dL High 55 - 99 mg/dL [facility] POC Subsection Comment on above: Result Comment: Gareth GARDINER POC Device SN [id number] Invalid Interpretation Code FT POC Subsection POC User ID [id number] Invalid Interpretation Code [facility] [...] [Mass/Vol] 210 mg/dL High 55-[address] [facility] Comment on above: Result Comment: Gareth GARDINER Performed By: #### 2 62071251 ####[facility] [address] [place] [address] Glucose [Mass/Vol] 111 mg/dL High 55-[address] [facility] Comment on above: Result Comment: Gareth GARDINER Performed By: #### 2 39871895 ####[facility] [address] [place] [address] Glucose [Mass/Vol] 201 mg/dL High 55-[address] [facility] Comment on above: Result Comment: Gareth GARDINER Performed By: #### 2 82834846 ####[facility] [address] [place] [address] Glucose [Mass/Vol] 93 mg/dL Normal 55-[address] [facility] Comment on above: Result Comment: Gareth guerrero RN/ Performed By: #### 2 93595822 ####[facility] [address] [place] [address] HEMATOLOGYOrdered By: SYSTEM SYSTEM on 12-19-2022 Basophils/100 [...] [place] [employer] Monitor Recordon 12-19-2022 Monitor Record [id number]#1. 00CD:[address] [facility] Monitor Record [id number]#1. 00CD:[address] [facility] Progress Note-Physicianon Progress Note-Physician Normal [facility] Comment on above: Result Comment: Elec tronically Signed By: MICHAEL POTTS, Jamir\.br\Date and Time Signed: 12/19/22 09:47 EDT eGFRon 12-19-2022 GFR/1.73 sq M.predicted among non-blacks MDRD (S/P/Bld) [Vol rate/Area] 62 mL/min/1.73 m2 Normal >=[address] [facility] Comment on above: Order Comment: Order added by Discern Expert. Result Comment: Physiologist earnest kidney disease could be indicated at eGFR's of less than 60 mL/min/1.73m2. Kidney failure is indicated at less than 15 mL/min/1.73m2. Performed By: #### 1 7734971, 3498156, 0898963, 9648849 ####[facility] [address] [place] [address] Auto Diffon 12-18-2022 Basophils/100 WBC (Bld) 0.4 % Normal 0.0-2.0 [facility] Comment on above: Order Comment: Order Added by Discern Expert. Performed By: #### 2 856036, 5763282 ####[facility] [address] [place] [address] Basophils/Leukocytes Auto (Bld) [Pure # fraction] 0.1 E9/L Normal 0.0-0.[address] [facility] Comment on above: Order Comment: Order Added by Discern Expert. Performed By: #### 2 562912, 3537438 ####[address] [address] Eosinophils/100 WBC (Bld) 2.8 % Normal 0.0-8.[address] [facility] Comment on above: Order Comment: Order Added by Bethany Expert. Performed By: #### 2 685124, 5525574 ####[address] [address] Eosinophils/Leukocytes Auto (Bld) [Pure # fraction] 0.4 E9/L Normal 0.0-0.[address] [facility] Comment on above: Order Comment: Order Added by Bethany Expert. Performed By: #### 2 334123, 5663476 ####[address] [address] Lymphocytes/100 WBC (Bld) 9.0 % Low 14.0-50.[address] [facility] Comment on above: Order Comment: Order Added by Discern Expert. Performed By: #### 2 349285, 2634118 ####[facility] [address] [place] [address] Lymphocytes/Leukocytes Auto (Bld) [Pure # fraction] 1.3 E9/L Normal 1.0-4.[address] [facility] Comment on above: Order Comment: Order Added by Bethany Expert. Performed By: #### 2 800200, 8432448 ####[facility] [address] [place] [address] Monocytes/100 WBC (Bld) 8.3 % Normal 4.0-14.0 [facility] Comment on above: Order Comment: Order Added by Discern Expert. Performed By: #### 2 135554, 2019793 ####[address] [address] Monocytes/Leukocytes Auto (Bld) [Pure # fraction] 1.3 E9/L High 0.2-1.[address] [facility] Comment on above: Order Comment: Order Added by Discern Expert. Performed By: #### 2 845045, 8442561 ####[address] [address] Neutrophils/100 WBC (Bld) 79.5 % High 36.0-75.[address] [facility] Comment on above: Order Comment: Order Added by Bethany Expert. Performed By: #### 2 500646, 2238289 ####[address] [address] Neutrophils/Leukocytes Auto (Bld) [Pure # fraction] 11.9 E9/L High 2.0-7.[address] [facility] Comment on above: Order Comment: Order Added by Bethany Expert. Performed By: #### 2 140944, 3843632 ####[address] [address] Basophils/100 WBC (Bld) 0.6 % Normal 0.0-2.0 [facility] Comment on above: Order Comment: Order Added by Bethany Expert. Performed By: #### 1 1804844, 6716373, 89847914, 5794501, 69275893, 24604148, 1283624 ####[address] [place] [address] Basophils/Leukocytes Auto (Bld) [Pure # fraction] 0.1 E9/L Normal 0.0-0.[address] [facility] Comment on above: Order Comment: Order Added by Bethany Expert. Performed By: #### 1 0389359, 8087373, 72219094, 3692867, 63217348, 68765576, 2621094 ####[address] [place] [address] Eosinophils/100 WBC (Bld) 2.0 % Normal 0.0-8.[address] [facility] Comment on above: Order Comment: Order Added by Discern Expert. Performed By: #### 1 5402095, 3984643, 17449665, 2370746, 50193652, 11397544, 6152208 ####[address] [address] Eosinophils/Leukocytes Auto (Bld) [Pure # fraction] 0.3 E9/L Normal 0.0-0.[address] [facility] Comment on above: Order Comment: Order Added by Discern Expert. Performed By: #### 1 3880377, 1453544, 21974961, 8101096, 13427015, 20933772, 5545961 ####[address] [address] Lymphocytes/100 WBC (Bld) 7.6 % Low 14.0-50.[address] [facility] Comment on above: Order Comment: Order Added by Discern Expert. Performed By: #### 1 4177887, 8647896, 01026396, 6601922, 02615358, 87348644, 7929701 ####[address] [address] Lymphocytes/Leukocytes Auto (Bld) [Pure # fraction] 1.3 E9/L Normal 1.0-4.[address] [facility] Comment on above: Order Comment: Order Added by Discern Expert. Performed By: #### 1 8409795, 0894572, 79057195, 8785654, 67664208, 57806988, 1828499 ####[address] [address] Monocytes/100 WBC (Bld) 7.8 % Normal 4.0-14.0 [facility] Comment on above: Order Comment: Order Added by Discern Expert. Performed By: #### 1 2401625, 8706099, 49968321, 1991297, 06624873, 65402534, 5249878 ####[address] [place] [address] Monocytes/Leukocytes Auto (Bld) [Pure # fraction] 1.3 E9/L High 0.2-1.[address] [facility] Comment on above: Order Comment: Order Added by Discern Expert. Performed By: #### 1 3143385, 8181457, 18189566, 5615885, 66934141, 22312167, 8541564 ####[address] [place] [address] Neutrophils/100 WBC (Bld) 82.0 % High 36.0-75.[address] [facility] Comment on above: Order Comment: Order Added by Discern Expert. Performed By: #### 1 0230752, 8881979, 58773600, 0722349, 73778830, 86747618, 2213717 ####[address] [place] [address] Neutrophils/Leukocytes Auto (Bld) [Pure # fraction] 13.7 E9/L High 2.0-7.[address] [facility] Comment on above: Order Comment: Order Added by Discern Expert. Performed By: #### 1 2738685, 0769488, 03977791, 6775422, 20834350, 68010486, 2582808 ####[facility] [address] [place] [address] BMPon 12-18-2022 Creatinine [Mass/Vol] 1.6 mg/dL High 0.5-1.3 [facility] Comment on above: Performed By: #### 2 670376, 2644679, 5801014015, 05763899, 83712547 ####[facility] [address] [place] [address] Urea nitrogen [Mass/Vol] 47 mg/dL High 5-[address] [facility] Comment on above: Performed By: #### 2 370715, 5268716, 0752514257, 51464451, 88496410 ####[facility] [address] [place] [address] Urea nitrogen/Creatinine [Mass ratio] 29 No Units High 10-[address] [facility] Comment on above: Performed By: #### 2 157217, 7500299, 3035775684, 71652248, 96001554 ####[facility] [address] [place] [address] Anion gap [Moles/Vol] 12 mmol/L Normal 6-16 [facility] Comment on above: Performed By: #### 2 684260, 7243785, 8141214498, 27822541, 31552223 ####[facility] [address] [place] [address] Calcium [Mass/Vol] 8.7 mg/dL Low 8.9-11.[address] [facility] Comment on above: Performed By: #### 2 661969, 5674205, 5113349277, 46966197, 95570248 ####[facility] [address] [place] [address] Chloride [Moles/Vol] 97 mmol/L Low 101-111 [facility] Comment on above: Performed By: #### 2 707923, 6332500, 8449604632, 16103318, 04387934 ####[facility] [address] [place] [address] CO2 [Moles/Vol] 32 mmol/L High 21-31 [facility] Comment on above: Performed By: #### 2 716486, 9802754, 9345755934, 11821278, 31113205 ####[facility] [address] [place] [address] Glucose [Mass/Vol] 131 mg/dL Normal 55-[address] [facility] Comment on above: Result Comment: If t his glucose result represents a fasting glucose, interpretation should refer to the following reference range: 55-99 mg/dL Performed By: #### 2 947949, 7536747, 3199408003, 75090132, 03946213 ####[facility] [address] [place] [address] Potassium [Moles/Vol] 3.7 mmol/L Normal 3.5-5.3 [facility] Comment on above: Performed By: #### 2 413156, 7470467, 0317033490, 65219205, 89456452 ####[facility] [address] [place] [address] Sodium [Moles/Vol] 137 mmol/L Normal 135-[address] [facility] Comment on above: Performed By: #### 2 910174, 6876487, 6172714209, 34522010, 20772663 ####[facility] [address] [place] [address] Creatinine [Mass/Vol] 1.8 mg/dL High 0.5-1.3 [facility] Comment on above: Performed By: #### 1 1491936, 4865248, 18043072, 5319158, 78523430, 75223973, 8375288 ####[facility] [address] [place] [address] Urea nitrogen [Mass/Vol] 49 mg/dL High 5-[address] [facility] Comment on above: Performed By: #### 1 2718351, 2194931, 61579330, 8500479, 94214170, 40870682, 9239042 ####[facility] [address] [place] [address] Urea nitrogen/Creatinine [Mass ratio] 27 No Units High 10-[address] [facility] Comment on above: Performed By: #### 1 9111259, 4126639, 67751961, 5992468, 63709565, 61845868, 1587287 ####[facility] [address] [place] [address] Anion gap [Moles/Vol] 18 mmol/L High 6-16 [facility] Comment on above: Performed By: #### 1 8301309, 4362342, 73059172, 3833483, 44465281, 97862053, 7065961 ####[facility] [address] [place] [address] Calcium [Mass/Vol] 9.3 mg/dL Normal 8.9-11.[address] [facility] Comment on above: Performed By: #### 1 1276891, 8458586, 93221312, 9213457, 97673515, 85816519, 1794408 ####[facility] [address] [place] [address] Chloride [Moles/Vol] 93 mmol/L Low 101-111 [facility] Comment on above: Performed By: #### 1 4469125, 7430231, 60505153, 6187451, 39227788, 13943643, 4763936 ####[facility] [address] [place] [address] CO2 [Moles/Vol] 29 mmol/L Normal 21-31 [facility] Comment on above: Performed By: #### 1 7952572, 8544221, 24791624, 4860694, 95596133, 46805458, 2083378 ####[facility] [address] [place] [address] Glucose [Mass/Vol] 137 mg/dL Normal 55-[address] [facility] Comment on above: Result Comment: If t his glucose result represents a fasting glucose, interpretation should refer to the following reference range: 55-99 mg/dL Performed By: #### 1 2485657, 7912048, 87108086, 7585079, 60094216, 13116376, 7570217 ####[facility] [address] [place] [address] Potassium [Moles/Vol] 4.0 mmol/L Normal 3.5-5.3 [facility] Comment on above: Performed By: #### 1 2596226, 2707148, 48871909, 6585553, 72098752, 02610168, 5906004 ####[facility] [address] [place] [address] Sodium [Moles/Vol] 136 mmol/L Normal 135-[address] [facility] Comment on above: Performed By: #### 1 8836171, 4889658, 67750837, 4829120, 41868963, 65765934, 9607722 ####[facility] [address] [place] [address] BNPon 12-18-2022 Int Ctr BNP Pass Normal [facility] Comment on above: Performed By: #### 1 8178295, 8130065, 68567273, 6897579, 85689571, 31601078, 6724901 ####[facility] [address] [place] [address] Natriuretic peptide B (Bld) [Mass/Vol] 219 pg/mL High 5-[address] [facility] Comment on above: Performed By: #### 1 4442628, 5186976, 01387810, 7731313, 11095670, 55725890, 2209136 ####[facility] [address] [place] [address] CBC w/ Auto Diffon Erythrocyte distribution width (RBC) [Ratio] 14.8 % High 10.9-14.[address] [facility] Comment on above: Performed By: #### 2 493527, 9526477 ####[place] [address]257 Hematocrit (Bld) [Volume fraction] 37.8 % Normal 37.7-49.[address] [facility] Comment on above: Performed By: #### 2 120920, 9753025 ####[facility] [address] [place] [address] Hemoglobin (Bld) [Mass/Vol] 12.7 g/dL Low 13.5-17.[address] [facility] Comment on above: Performed By: #### 2 303178, 2659606 ####[facility] [address] [place] [address] MCH (RBC) [Entitic mass] 28.3 pg Normal 27.0-34.[address] [facility] Comment on above: Performed By: #### 2 845078, 4217497 ####[address] [address] MCHC (RBC) [Mass/Vol] 33.6 g/dL Normal 31.4-36.0 [facility] Comment on above: Performed By: #### 2 874656, 8599421 ####[place] [address] [place] [address] MCV (RBC) [Entitic vol] 84.2 fL Normal 80.0-100.0 [facility] Comment on above: Performed By: #### 2 912991, 9975331 ####[address] [address] Platelet mean volume (Bld) [Entitic vol] 9.2 fL Normal 6.4-10.[address] [facility] Comment on above: Performed By: #### 2 245031, 7940966 ####[address] [address] Platelets (Bld) [#/Vol] 219.0 E9/L Normal 150.0-500.[address] [facility] Comment on above: Performed By: #### 2 350109, 8964805 ####[address] [address] RBC (Bld) [#/Vol] 4.5 E12/L Normal 4.3-5.[address] [facility] Comment on above: Performed By: #### 2 661063, 4954118 ####[address] [address] WBC corrected for nucl RBC Auto (Bld) [#/Vol] 15.0 E9/L High 4.0-11.0 [facility] Comment on above: Performed By: #### 2 858194, 0201914 ####[address] [address] Erythrocyte distribution width (RBC) [Ratio] 14.9 % High 10.9-14.[address] [facility] Comment on above: Performed By: #### 1 8605828, 6652460, 98906249, 5532358, 38671758, 46213653, 8093734 ####[facility] [address] [place] [address] Hematocrit (Bld) [Volume fraction] 42.8 % Normal 37.7-49.[address] [facility] Comment on above: Performed By: #### 1 2021350, 2862038, 22802497, 0555060, 12838585, 82336682, 1181732 ####[facility] [address] [place] 3806157 Hemoglobin (Bld) [Mass/Vol] 14.3 g/dL Normal 13.5-17.[address] [facility] Comment on above: Performed By: #### 1 6156136, 9039400, 18973253, 7748706, 23521777, 12913240, 6735457 ####[facility] [address] [place] 3806157 MCH (RBC) [Entitic mass] 28.1 pg Normal 27.0-34.[address] [facility] Comment on above: Performed By: #### 1 4094133, 5203113, 53725390, 3619854, 00607607, 54991031, 6707659 ####[facility] [address] [place] 3806157 MCHC (RBC) [Mass/Vol] 33.3 g/dL Normal 31.4-36.0 [facility] Comment on above: Performed By: #### 1 9511991, 6828963, 34186841, 6210758, 68554330, 78063712, 0110303 ####[facility] [address] [place] [address] MCV (RBC) [Entitic vol] 84.3 fL Normal 80.0-100.0 [facility] Comment on above: Performed By: #### 1 0324647, 0281617, 29318523, 9672488, 12488712, 01190209, 5901369 ####[facility] [address] [place] [address] Platelet mean volume (Bld) [Entitic vol] 9.8 fL Normal 6.4-10.[address] [facility] Comment on above: Performed By: #### 1 3656078, 8143119, 06856493, 1449380, 16084804, 21102033, 4361884 ####[facility] [address] [place] [address] Platelets (Bld) [#/Vol] 234.0 E9/L Normal 150.0-500.[address] [facility] Comment on above: Performed By: #### 1 0723828, 3871734, 85172129, 3748056, 34686949, 15817374, 6225038 ####[facility] [address] [place] [address] RBC (Bld) [#/Vol] 5.1 E12/L Normal 4.3-5.[address] [facility] Comment on above: Performed By: #### 1 1202647, 1750263, 99591711, 5302148, 47948089, 22179947, 6793072 ####[facility] [address] [place] [address] WBC corrected for nucl RBC Auto (Bld) [#/Vol] 16.7 E9/L High 4.0-11.0 [facility] Comment on above: Result Comment: Slid e reviewed by JENNIFER. Performed By: #### 1 4345132, 6114653, 88339814, 9693607, 85203376, 86163855, 4598986 ####[facility] [address] [place] [address] CHEMISTRYOrdered By: SYSTEM SYSTEM on 12-18-2022 Troponin [...] activity/Vol] 55 Int._Unit/L Normal 14-[address] [facility] Comment on above: Performed By: #### 2 360668, 1547013, 5907275641, 73007322, 65232708 ####[facility] [address] [place] [address] COAGULATIONOrdered By: Rachael Apodaca on 12-18-2022 aPTT Coag (PPP) [Time] 30.6 s Normal 25.1 - 36.5 second(s) [facility] [place] Auto Coag INR Coag (PPP) [Relative time] 1.1 {INR} Invalid Interpretation Code [facility] [place] Auto Coag PT Coag (PPP) [Time] 12.5 s Normal 9.4 - 1 2.5 second(s) [facility] [place] Auto Coag CT Head or Brain w/o Contras ton 12-18-2022 CT Head or Brain w/o Contrast Normal [facility] CT Spine Cervical w/o Contra ston 12-18-2022 CT Spine Cervical w/o Contrast Normal [facility] Capillary Glucose POCon 11-22 Glucose [Mass/Vol] 212 mg/dL High 55-[address] [facility] Comment on above: Result Comment: Gareth GARDINER Performed By: #### 2 43857854 ####[facility] [address] [place] [address] Glucose [Mass/Vol] 97 mg/dL Normal 55-[address] [facility] Comment on above: Result Comment: Yazmin bri Meter Performed By: #### 2 67844458 ####[facility] [address] [place] [address] Glucose [Mass/Vol] 119 mg/dL High 55-[address] [facility] Comment on above: Result Comment: Gareth GARDINER Performed By: #### 2 54408271 ####[facility] [address] [place] [address] Glucose [Mass/Vol] 131 mg/dL High 55-[address] [facility] Comment on above: Result Comment: Gareth GARDINER Performed By: #### 2 10584277 ####[facility] [address] [place] [address] Consent for Treatmenton 11-22 Consent for Treatment [id number]. 00CD:[address] [facility] ED Clinical Summaryon 2022 ED Clinical Summary Normal [facility] ED Note-Physicianon 12-19-19 ED Note-Physician Normal [facility] Comment on above: Result Comment: Elec tronically Signed By: Guilherme POTTS, Malcom\.br\Date and Time Signed: 12/18/22 04:33 EDT ED Patient Education Noteon 12-18-2022 ED Patient Education Note Normal [facility] ED Patient Summaryon 023 ED Patient Summary Normal [facility] ED Traumaon 12-18-2022 ED Trauma [id number]. 00CD:[address] [facility] HEMATOLOGYOrdered By: SYSTEM SYSTEM on [...] Correspondence Off iceon 12-18-2022 Insurance Correspondence Office [id number] 0CD:[address] [facility] Interdisciplinary Note - Santosh e Manageron 12-18-2022 Interdisciplinary Note - Chinchilla Machine Operator [facility] Comment on above: Result Comment: Elec tronically Signed By: Lucero Watson\.br\Date and Time Signed: 12/18/22 14:57 EDT Interdisciplinary Note - Dejuan singon 12-18-2022 Interdisciplinary Note - Nursing Patient he is confused and he does not able to answer my questions. informed staff in [facility] to send current medication list in fax.3N Normal [facility] Interdisciplinary Note - PTo n 12-18-2022 Interdisciplinary Note - PT Normal [facility] Laboratory - Microbiology an d Antimicrobial susceptibilityOrdered By: Karen Vergara on 12-18-2022 Bacteria identified Cx Nom (U) 10,000 cfu/ml Staphylococcus species Continuing incubation [facility] Monitor Recordon 12-18-2022 Monitor Record [id number]#1. 00CD:[address] [facility] No Panel InformationOrdered By: Karen Vergara on 12-18-2022 Blood Culture Charcoal Streptococcus spe cies Staphylococcus species coagulase negative In 1 of 2 blood culture bottles drawn. Isolated from aerobic bottle Preliminary gram stain results of gram positive cocci in clusters Result called to Dr. Mckinney by and results read back for confirmation on 12/19/2022 09:39:39 [facility] No Panel InformationOrdered By: ANGPROCESSSERVER MICROBIOLOGY on 12-18-2022 Blood Culture Charcoal No growth at 2 da ys. Final to follow at 7 days. [facility] PT & PTTon 12-18-2022 aPTT Coag (PPP) [Time] 30.6 second(s) Normal 25.1-36.[address] [facility] Comment [...] - 109.0 sec. Performed By: #### 1 4341778, 5786612, 90024710, 2353242, 81937876, 00618010, 1588814 ####[facility] [address] [place] [address] INR Coag (PPP) [Relative time] 1.1 {INR} Invalid Interpretation Code [facility] Comment on above: Result Comment: INR results are specifically intended to assess patients stabilized on long-term Anticoagulation therapy suggested INR?s ?Less Intensive Anticoagulation? 2.0 ? 3.0Conventional Range 3.0 ? 4.5 Performed By: #### 1 7086584, 2671526, 21832554, 2221227, 97812002, 83699886, 2852909 ####[facility] [address] [place] [address] PT Coag (PPP) [Time] 12.5 second(s) Normal 9.4-12.[address] [facility] Comment [...] no normal ranges. Performed By: #### 1 6395709, 4991671, 60162882, 1700529, 06091376, 43115516, 9957876 ####[facility] [address] [place] [address] Procalcitoninon 12-18-2022 Procalcitonin .09 ng/mL Normal .00-.50 [facility] Comment on above: Result Comment: [...] to 24 hours. Performed By: #### 2 590594, 3610775, 9638386353, 01492201, 73723309 ####[facility] [address] [place] [address] RAD - Preliminary Cat Scan R eporton 12-18-2022 RAD - Preliminary Cat Scan Report [id number]#1. 00CD:[address] [facility] Troponin 0 Hr.on 12-18-2022 Troponin I.cardiac [Mass/Vol] 23.50 pg/mL Normal 15.90-38.[address] [facility] Comment on above: Result Comment: The 95% CI (Confidence Interval) PPV (Positive Predictive Value) for myocardial infarction in females is 38 pg/mL, in males 51 pg/mL. The results should be used in conjunction with clinical conditions of myocardial infarction.(Access High Sensitivity Troponin I Instructions For Use, [place], December 2017) Performed By: #### 1 7175691, 7611513, 74127677, 4875402, 52217239, 08276861, 0141680 ####[facility] [address] [place] [address] Troponin 3 Hr.on 12-18-2022 Troponin I.cardiac [Mass/Vol] 18.80 pg/mL Normal 15.90-38.[address] [facility] Comment on above: Result Comment: The 95% CI (Confidence Interval) PPV (Positive Predictive Value) for myocardial infarction in females is 38 pg/mL, in males 51 pg/mL. The results should be used in conjunction with clinical conditions of myocardial infarction.(Access High Sensitivity Troponin I Instructions For Use, [place], December 2017) Performed By: #### 1 7207196 ####[facility] [address] [place] [address] Troponin 6 Hr.on 12-18-2022 Troponin I.cardiac [Mass/Vol] 22.50 pg/mL Normal 15.90-38.[address] [facility] Comment on above: Result Comment: The 95% CI (Confidence Interval) PPV (Positive Predictive Value) for myocardial infarction in females is 38 pg/mL, in males 51 pg/mL. The results should be used in conjunction with clinical conditions of myocardial infarction.(Access High Sensitivity Troponin I Instructions For Use, [place], December 2017) Performed By: #### 2 042668, 9077466, 0549079828, 83010527, 37415859 ####[facility] [address] [place] [address] Troponin 9 Hr.on 12-18-2022 Troponin I.cardiac [Mass/Vol] 18.90 pg/mL Normal 15.90-38.[address] [facility] Comment on above: Result Comment: The 95% CI (Confidence Interval) PPV (Positive Predictive Value) for myocardial infarction in females is 38 pg/mL, in males 51 pg/mL. The results should be used in conjunction with clinical conditions of myocardial infarction.([employer] High Sensitivity Troponin I Instructions For Use, [place], December 2017) Performed By: #### 1 5177787 ####[address] [address] UA With Cult Reflexon 2022 Bacteria LM Ql (Urine sed) TRACE Normal Trace [facility] Comment on above: Performed By: #### 1 2355945, 4351433 ####[address] [address] Bilirubin Ql (U) Negative Normal Negative [facility] Comment on above: Performed By: #### 1 0854117, 1080587 ####[address] [address] Clarity (U) CLEAR Normal Clear [facility] Comment on above: Performed By: #### 1 9003509, 8603778 ####[address] [address] Color (U) YELLOW Normal Yellow [facility] Comment on above: Performed By: #### 1 9248436, 3507568 ####[place] [address] [place] [address] Epithelial cells.squamous LM.HPF (Urine sed) [#/Area] 0-2 Normal 0-2 [facility] Comment on above: Performed By: #### 1 3162201, 3081285 ####[facility] [address] [place] [address] Glucose Test strip (U) [Mass/Vol] Negative Normal Negative [facility] Comment on above: Performed By: #### 1 7909915, 3687424 ####[facility] [address] [place] [address] Hemoglobin Ql (U) TRACE Abnormal Negative [facility] Comment on above: Performed By: #### 1 6459178, 6812958 ####[facility] [address] [place] [address] Ketones (U) [Mass/Vol] Negative Normal Negative [facility] Comment on above: Performed By: #### 1 0399385, 0110704 ####[facility] [address] [place] [address] [place].plasma/[place].R BC (Bld) [Mass ratio] 0-3 Normal 0-3 [facility] Comment on above: Performed By: #### 1 9820525, 2880572 ####[facility] [address] [place] [address], [place] [address] Nitrite Ql (U) Negative Normal Negative [facility] Comment on above: Performed By: #### 1 7116294, 8466636 ####[facility] [address] [place] [address] pH (U) 6.5 [pH] Invalid Interpretation Code 5.0-9.[address] [facility] Comment on above: Performed By: #### 1 2325255, 5525825 ####[facility] [address] [place] [address] Protein (U) [Mass/Vol] Negative Normal Negative [facility] Comment on above: Performed By: #### 1 6863599, 9379893 ####[facility] [address] [place] [address] Specific gravity (U) [Rel density] 1.020 Invalid Interpretation Code 1.005-1.[address] [facility] Comment on above: Performed By: #### 1 2509128, 8355660 ####[facility] [address] [place] [address] Type of Urine collection method Clean Catch Normal [facility] Comment on above: Performed By: #### 1 8010177, 7000141 ####[facility] [address] [place] 3806157 Urobilinogen Qn (U) 0.2 {Lei'U}/dL Normal 0.0-1.[address] [facility] Comment on above: Performed By: #### 1 7026920, 5453445 ####[place] [address] WBC Auto Ql (U) 3+ Abnormal Negative [facility] Comment on above: Performed By: #### 1 8160219, 7355107 ####[facility] [address] [place] [address] WBC LM.HPF (Urine sed) [#/Area] /[HPF] Abnormal 0-[address] [facility] Comment on above: Performed By: #### 1 5942210, 6100065 ####[facility] [address] [place] [address] URINALYSISOrdered By: Houston Castillo on 12-18-2022 Bacteria [...] PM) Normal Negative [facility] UA Auto SS [place].plasma/[place].R BC (Bld) [Mass ratio] 0-3 /HPF Normal [...] [facility] UA Auto SS Urobilinogen Qn (U) 0.2564588 {Lei'U}/dL Normal 0.0 - 1.0 EU/dL [facility] UA Auto SS WBC Auto Ql (U) 3+ *ABN* (12/18/22 4:45 PM) Invalid Interpretation Code Negative [facility] UA Auto SS WBC LM.HPF (Urine sed) [#/Area] /[HPF] Invalid Interpretation Code 0-5/HPF [facility] UA Auto SS XR Chest Single Viewon 12-18 XR Chest Single View Normal [facility] XR Pelvis 1 or 2 Viewson XR Pelvis 1 or 2 Views Normal [facility] eGFRon 12-18-2022 GFR/1.73 sq M.predicted among non-blacks MDRD (S/P/Bld) [Vol rate/Area] 44 mL/min/1.73 m2 Low >=[address] [facility] Comment on above: Order Comment: Order added by Discern Expert. Result Comment: Physiologist earnest kidney disease could be indicated at eGFR's of less than 60 mL/min/1.73m2. Kidney failure is indicated at less than 15 mL/min/1.73m2. Performed By: #### 2 830494, 9771694, 1874255638, 40610400, 95167460 ####[facility] [address] [place] [address] GFR/1.73 sq M.predicted among non-blacks MDRD (S/P/Bld) [Vol rate/Area] 38 mL/min/1.73 m2 Low >=[address] [facility] Comment on above: Order Comment: Order added by Discern Expert. Result Comment: Physiologist earnest kidney disease could be indicated at eGFR's of less than 60 mL/min/1.73m2. Kidney failure is indicated at less than 15 mL/min/1.73m2. Performed By: #### 1 2857694, 3609115, 05183587, 7517766, 09206579, 12747889, 1318127 ####[facility] [address] [place] [address] Capillary Glucose POCon 11-22 Glucose [Mass/Vol] 165 mg/dL High 55- [facility] Comment on above: Result Comment: Yazmin bri Meter Performed By: #### 2 95329583 ####[facility] [address] [place] [address] Glucose [Mass/Vol] 184 mg/dL High 55- [facility] Comment on above: Performed By: #### 2 90255511 ####[facility] [address] [place] [address] Capillary Glucose POCon 11-22 Glucose [Mass/Vol] 184 mg/dL High 55-[address] [facility] Comment on above: Result Comment: Yazmin bri Meter Performed By: #### 2 45459992 ####[facility] [address] [place] [address] Glucose [Mass/Vol] 141 mg/dL High 55- [facility] Comment on above: Result Comment: Yazmin bri Meter Performed By: #### 2 07388622 ####[facility] [address] [place] [address] Capillary Glucose POCon 11-22 Glucose [Mass/Vol] 183 mg/dL High 55-[address] [facility] Comment on above: Result Comment: Yazmin bri Meter Performed By: #### 2 88148861 ####[facility] [address] [place] [address] Glucose [Mass/Vol] 147 mg/dL High 55-[address] [facility] Comment on above: Result Comment: Yazmin bri Meter Performed By: #### 2 12875669 ####[facility] [address] [place] [address] Capillary Glucose POCon 11-22 Glucose [Mass/Vol] 188 mg/dL High 55-[address] [facility] Comment on above: Result Comment: Yazmin bri Meter Performed By: #### 2 02706312 ####[facility] [address] [place] [address] Glucose [Mass/Vol] 162 mg/dL High 55- [facility] Comment on above: Result Comment: Yazmin bri Meter Performed By: #### 2 16228353 ####[facility] [address] [place] [address] Auto Diffon 12-13-2022 Basophils/100 WBC (Bld) 0.0 % Normal 0.0-2.0 [facility] Comment on above: Order Comment: Order Added by Discern Expert. Performed By: #### 1 4058194, 3912475, 062026490, 3200159, 6885842 ####[address] [address] Basophils/Leukocytes Auto (Bld) [Pure # fraction] 0.0 E9/L Normal 0.0-0.[address] [facility] Comment on above: Order Comment: Order Added by Discern Expert. Performed By: #### 1 3288494, 3890566, 134245101, 7454508, 2925303 ####[place] [place] [address] Eosinophils/100 WBC (Bld) 7.6 % Normal 0.0-8.[address] [facility] Comment on above: Order Comment: Order Added by Discern Expert. Performed By: #### 1 4893805, 0944099, 619469285, 1102889, 2955047 ####[place] [address] [place] [address] Eosinophils/Leukocytes Auto (Bld) [Pure # fraction] 1.0 E9/L High 0.0-0.[address] [facility] Comment on above: Order Comment: Order Added by Discern Expert. Performed By: #### 1 8119708, 1156456, 848991104, 8033056, 0081095 ####[address] [address] Lymphocytes/100 WBC (Bld) 10.3 % Low 14.0-50.[address] [facility] Comment on above: Order Comment: Order Added by Discern Expert. Performed By: #### 1 3890747, 2951940, 666890347, 0913065, 5810980 ####[address] [address] Lymphocytes/Leukocytes Auto (Bld) [Pure # fraction] 1.3 E9/L Normal 1.0-4.[address] [facility] Comment on above: Order Comment: Order Added by Discern Expert. Performed By: #### 1 5807273, 0957747, 159378235, 2019325, 6946690 ####[address] [address] Monocytes/100 WBC (Bld) 9.6 % Normal 4.0-14.0 [facility] Comment on above: Order Comment: Order Added by Discern Expert. Performed By: #### 1 9784046, 1300097, 724439296, 4033253, 0474339 ####[address] [place] [address] Monocytes/Leukocytes Auto (Bld) [Pure # fraction] 1.2 E9/L High 0.2-1.[address] [facility] Comment on above: Order Comment: Order Added by Discern Expert. Performed By: #### 1 7727855, 5573358, 135239846, 6201284, 7459179 ####[address] [address] Neutrophils/100 WBC (Bld) 72.5 % Normal 36.0-75.[address] [facility] Comment on above: Order Comment: Order Added by Discern Expert. Performed By: #### 1 5314253, 9593290, 821169181, 0228172, 5584539 ####[address] [place] [address] Neutrophils/Leukocytes Auto (Bld) [Pure # fraction] 9.0 E9/L High 2.0-7.[address] [facility] Comment on above: Order Comment: Order Added by Discern Expert. Performed By: #### 1 6025770, 1157245, 629777113, 4756017, 7455389 ####[address] [address] CBC w/ Auto Diffon Erythrocyte distribution width (RBC) [Ratio] 15.0 % High 10.9-14.[address] [facility] Comment on above: Performed By: #### 1 7944641, 8552328, 017831698, 5613263, 6397730 ####[address] [address] Hematocrit (Bld) [Volume fraction] 45.2 % Normal 37.7-49.[address] [facility] Comment on above: Performed By: #### 1 0306048, 7436234, 369973061, 3721111, 1332639 ####[address] [place] [address] Hemoglobin (Bld) [Mass/Vol] 14.8 g/dL Normal 13.5-17.[address] [facility] Comment on above: Performed By: #### 1 8389912, 7403923, 322651246, 4311037, 4479332 ####[address] [place] [address] MCH (RBC) [Entitic mass] 27.8 pg Normal 27.0-34.[address] [facility] Comment on above: Performed By: #### 1 8340563, 9599824, 268092501, 8524773, 1925109 ####[facility] [address] [place] [address] MCHC (RBC) [Mass/Vol] 32.7 g/dL Normal 31.4-36.0 [facility] Comment on above: Performed By: #### 1 2396131, 5952922, 528831374, 3252415, 6257968 ####[address] [address] MCV (RBC) [Entitic vol] 85.0 fL Normal 80.0-100.0 [facility] Comment on above: Performed By: #### 1 8206417, 6877117, 286561794, 6469470, 9098006 ####[address] [address] Platelet mean volume (Bld) [Entitic vol] 9.4 fL Normal 6.4-10.[address] [facility] Comment on above: Performed By: #### 1 9730382, 9249379, 499667345, 4946582, 0200466 ####[address] [address] Platelets (Bld) [#/Vol] 193.0 E9/L Normal 150.0-500.[address] [facility] Comment on above: Performed By: #### 1 7621715, 8899748, 619001038, 4650578, 1418146 ####[address] [address] RBC (Bld) [#/Vol] 5.3 E12/L Normal 4.3-5.[address] [facility] Comment on above: Performed By: #### 1 6924008, 3149019, 918476448, 9514016, 2476171 ####[address] [address] WBC corrected for nucl RBC Auto (Bld) [#/Vol] 12.5 E9/L High 4.0-11.0 [facility] Comment on above: Performed By: #### 1 6515265, 3260956, 993639819, 7467541, 9410413 ####[facility] [address] [place] [address] CMPon 12-13-2022 Albumin [Mass/Vol] 3.6 g/dL Normal 3.3-5.[address] [facility] Comment on above: Performed By: #### 1 8955486, 9923703, 495722365, 7595095, 9230125 ####[address] [place] [address] Albumin/Globulin (S) [Mass conc ratio] 1.0 Low 1.1-2.[address] [facility] Comment on above: Performed By: #### 1 6385496, 0143251, 521588666, 5217384, 3419707 ####[address] [place] [address] ALP [Catalytic activity/Vol] 49 Int._Unit/L Normal 21-[address] [facility] Comment on above: Performed By: #### 1 3780682, 1432143, 476157133, 3770778, 4242997 ####[facility] [address] [place] [address] ALT No additional P-5'-P [Catalytic activity/Vol] 21 Int._Unit/L Normal 6-[address] [facility] Comment on above: Performed By: #### 1 0372103, 8480193, 253058446, 8677059, 2867080 ####[address] [place] [address] Anion gap [Moles/Vol] 16 mmol/L Normal 6-16 [facility] Comment on above: Performed By: #### 1 8006455, 0602644, 556781485, 2006463, 4697971 ####[facility] [address] [place] [address] AST [Catalytic activity/Vol] 21 Int._Unit/L Normal 5-[address] [facility] Comment on above: Performed By: #### 1 9809382, 2840186, 413759126, 5242528, 7157311 ####[facility] [address] [place] [address] Bilirubin [Mass/Vol] 0.6 mg/dL Normal 0.0-1.1 [facility] Comment on above: Performed By: #### 1 6800891, 7003899, 196084258, 3110597, 0506319 ####[facility] [address] [place] [address] Calcium [Mass/Vol] 9.4 mg/dL Normal 8.9-11.[address] [facility] Comment on above: Performed By: #### 1 5457574, 1620477, 184834047, 6368421, 0423708 ####[facility] [address] [place] [address] Chloride [Moles/Vol] 99 mmol/L Low 101-111 [facility] Comment on above: Performed By: #### 1 4296911, 6418428, 085655591, 5771439, 7264996 ####[facility] [address] [place] [address] CO2 [Moles/Vol] 31 mmol/L Normal 21-31 [facility] Comment on above: Performed By: #### 1 8507209, 3431426, 542334145, 5445852, 6299639 ####[facility] [address] [place] [address] Creatinine [Mass/Vol] 1.5 mg/dL High 0.5-1.3 [facility] Comment on above: Performed By: #### 1 9422761, 4577728, 156277111, 6463125, 7235402 ####[facility] [address] [place] [address] Globulin (S) [Mass/Vol] 3.7 g/dL Normal 1.4-4.0 [facility] Comment on above: Performed By: #### 1 8687926, 2206859, 562281683, 7943775, 0868726 ####[facility] [address] [place] [address] Glucose [Mass/Vol] 128 mg/dL Normal 55-[address] [facility] Comment on above: Result Comment: If t his glucose result represents a fasting glucose, interpretation should refer to the following reference range: 55-99 mg/dL Performed By: #### 1 2940574, 2258390, 313091500, 5336628, 3617657 ####[facility] [address] [place] [address] Potassium [Moles/Vol] 4.1 mmol/L Normal 3.5-5.3 [facility] Comment on above: Performed By: #### 1 4892517, 4882514, 187929047, 4858266, 9238524 ####[facility] [address] [place] [address] Protein [Mass/Vol] 7.3 g/dL Normal 6.0-7.[address] [facility] Comment on above: Performed By: #### 1 9228035, 3732867, 969370112, 8479394, 9423655 ####[facility] [address] [place] [address] Sodium [Moles/Vol] 142 mmol/L Normal 135-[address] [facility] Comment on above: Performed By: #### 1 6496167, 8656655, 604177317, 1905433, 7890860 ####[facility] [address] [place] [address] Urea nitrogen [Mass/Vol] 57 mg/dL High 5-[address] [facility] Comment on above: Performed By: #### 1 2193620, 8124481, 634176021, 1130491, 2417452 ####[facility] [address] [place] [address] Urea nitrogen/Creatinine [Mass ratio] 38 No Units High 10-[address] [facility] Comment on above: Performed By: #### 1 5331553, 6746807, 283332459, 2336535, 4871027 ####[facility] [address] [place] [address] Capillary Glucose POCon 07-2 Glucose [Mass/Vol] 256 mg/dL High [address] [facility] Comment on above: Result Comment: Yazmin bri Meter Performed By: #### 2 84341508 ####[facility] [address] [place] [address] Glucose [Mass/Vol] 152 mg/dL High [facility] Comment on above: Result Comment: Yazmin bri Meter Performed By: #### 2 49801893 ####[facility] [address] [place] [address] PpdJ4bqb 12-13-2022 HbA1c (Bld) [Mass fraction] 6.5 % High <=5.[address] [facility] Comment on above: Performed By: #### 1 7506011, 7701880, 107251105, 2780098, 9684891 ####[facility] [address] [place] [address] eGFRon 12-13-2022 GFR/1.73 sq M.predicted among non-blacks MDRD (S/P/Bld) [Vol rate/Area] 47 mL/min/1.73 m2 Low >=[address] [facility] Comment on above: Order Comment: Order added by Discern Expert. Result Comment: Physiologist earnest kidney disease could be indicated at eGFR's of less than 60 mL/min/1.73m2. Kidney failure is indicated at less than 15 mL/min/1.73m2. Performed By: #### 1 7293354, 8089604, 927911991, 5269826, 9928340 ####[facility] [address] [place] [address] Capillary Glucose POCon 11-22 Glucose [Mass/Vol] 212 mg/dL High 55- [facility] Comment on above: Result Comment: Yazmin bri Meter Performed By: #### 2 13193104 ####[facility] [address] [place] [address] Glucose [Mass/Vol] 161 mg/dL High 55- [facility] Comment on above: Result Comment: Yazmin bri Meter Performed By: #### 2 62115523 ####[facility] [address] [place] [facility] [place] [address] Capillary Glucose POCon 11-22 Glucose [Mass/Vol] 206 mg/dL [address] Comment on above: Result Comment: Yazmin bri Meter Performed By: #### 2 04262467 ####[facility] [address] [place] [address] Glucose [Mass/Vol] 152 mg/dL [address] Comment on above: Result Comment: Yazmin bri Meter Performed By: #### 2 64720728 ####[facility] [address] [place] [address] Capillary Glucose POCon 11-22 Glucose [Mass/Vol] 140 mg/dL [address] Comment on above: Result Comment: Yazmin bri Meter Performed By: #### 2 67808174 ####[facility] [address] [place] [address] Capillary Glucose POCon 11-21 Glucose [Mass/Vol] 243 mg/dL [address] Comment on above: Result Comment: Yazmin bri Meter Performed By: #### 2 54761014 ####[facility] [address] [facility] [address] Glucose [Mass/Vol] 157 mg/dL [address] Comment on above: Result Comment: Yazmin bri Meter Performed By: #### 2 88823859 ####[facility] [address] [place] [address] Capillary Glucose POCon 11-21 Glucose [Mass/Vol] 181 mg/dL [address] Comment on above: Result Comment: Yazmin bri Meter Performed By: #### 2 14136462 ####[facility] [address] [facility] [place] [address] Capillary Glucose POCon 11-21 Glucose [Mass/Vol] 149 mg/dL [address] Comment on above: Result Comment: Yazmin bri Meter Performed By: #### 2 19715979 ####[facility] [address] [place] [address] Glucose [Mass/Vol] 164 mg/dL [address] Comment on above: Result Comment: Yazmin bri Meter Performed By: #### 2 34443914 ####[facility] [address] [place] [address] Capillary Glucose POCon 11-21 Glucose [Mass/Vol] 265 mg/dL High [address] [place] [address] Comment on above: Result Comment: Yazmin bri Meter Performed By: #### 2 93739747 ####[facility] [address] [place] [address] Glucose [Mass/Vol] 129 mg/dL [address] Comment on above: Result Comment: Yazmin bri Meter Performed By: #### 2 02053254 ####[facility] [address] [place] [address] Family Medicine Office/Clini c Noteon 12-06-2022 Family Medicine Office/Clinic Note Normal [facility] Comment on above: Result Comment: Elec tronically Signed By: SHAISTA POTTS, Donta\.br\Date and Time Signed: 12/06/22 21:11 EDT Capillary Glucose POCon 11-21 Glucose [Mass/Vol] 196 mg/dL [address] Comment on above: Result Comment: Yazmin bri Meter Performed By: #### 2 20443153 ####[facility] [address] [place] [address] Glucose [Mass/Vol] 159 mg/dL [address] Comment on above: Result Comment: Yazmin bri Meter Performed By: #### 2 61375668 ####[facility] [address] [place] [address] Capillary Glucose POCon 11-21 Glucose [Mass/Vol] 195 mg/dL [address] Comment on above: Result Comment: Gareth GARDINER Performed By: #### 2 48753894 ####[facility] [address] [place] [address] Insurance Correspondence Off iceon 12-04-2022 Insurance Correspondence Office [id number]. 00CD:[address] [facility] Physician Orderon 12-03-2022 Physician Order [id number]#1. 00CD:[address] [facility] CHEMISTRYOrdered By: Lab ROP User on 12-02-2022 Glucose [Mass/Vol] 227 mg/dL High 55 - 99 mg/dL [facility] POC Subsection Comment on above: Result Comment: Gareth GARDINER POC Device SN [id number] Invalid Interpretation Code FT POC Subsection POC User ID [id number] Invalid Interpretation Code [facility] [...] Result Comment: Gareth GARDINER POC Device SN [id number] Invalid Interpretation Code FT POC Subsection POC User ID [id number] Invalid Interpretation Code [facility] [place] [facility] POC Subsection POC Username TOYIN REYNOLDS Invalid Interpretation Code [facility] [place] POC Subsection Capillary Glucose POCon 11-21 Glucose [Mass/Vol] 227 mg/dL High 55-[address] [facility] Comment on above: Result Comment: Gareth GARDINER Performed By: #### 2 [id number] ####[facility] [address] [place] [address] Glucose [Mass/Vol] 127 mg/dL High 55-[address] [facility] Comment on above: Result Comment: Gareth GARDINER Performed By: #### 2 87200587 ####[facility] [address] [place] [address] Coding Queryon 12-02-2022 Coding Query Normal [facility] Discharge Note-Nursingon Discharge Note-Nursing Normal [facility] Inpatient Clinical Summaryon 12-02-2022 Inpatient Clinical Summary Normal [facility] Inpatient Patient Summaryon 12-02-2022 Inpatient Patient Summary Normal [facility] Insurance Correspondence Off iceon 12-02-2022 Insurance Correspondence Office [id number] CD:[address] [facility] Interdisciplinary Note - Santosh e Manageron 12-02-2022 Interdisciplinary Note - Chinchilla Machine Operator [facility] Comment on above: Result Comment: Elec tronically Signed By: Dank HAYDEN, Lisa\.br\Date and Time Signed: 12/02/22 09:31 EDT Monitor Recordon 12-02-2022 Monitor Record [id number]#1. 00CD:[address] [facility] Physician Orderon 12-02-2022 Physician Order [id number]#1. 00CD:[address] [facility] Progress Note-Physicianon Progress Note-Physician [facility] Comment on above: Result Comment: Elec tronically Signed By: Adeline COLEMAN\.br\Date and Time Signed: 12/01/22 18:43 EDT\.br\Electronically Co-Signed By: Juan Hdz DO\.br\Date and Time Co-Signed: 12/02/22 07:20 EDT Transfer Documentson 023 Transfer Documents [id number]#1. 00CD:[address] [facility] BMPon 12-01-2022 Anion gap [Moles/Vol] 13 mmol/L Normal 6-16 [facility] Comment on above: Performed By: #### 1 2169167, 7523032, 3389102, 5785346 ####[facility] [address] [place] [address] Calcium [Mass/Vol] 9.1 mg/dL Normal 8.9-11.[address] [facility] Comment on above: Performed By: #### 1 8356608, 3642782, 1965332, 8325963 ####[facility] [address] [place] [address] Chloride [Moles/Vol] 102 mmol/L Normal 101-111 [facility] Comment on above: Performed By: #### 1 7703549, 7026356, 0162866, 6620354 ####[facility] [address] [place] [address] CO2 [Moles/Vol] 28 mmol/L Normal 21-31 [facility] Comment on above: Performed By: #### 1 2607709, 3893272, 3095966, 0665269 ####[facility] [address] [place] [address] Creatinine [Mass/Vol] 1.3 mg/dL Normal 0.5-1.3 [facility] Comment on above: Performed By: #### 1 1314373, 9542398, 0696680, 3110510 ####[facility] [address] [place] [address] Glucose [Mass/Vol] 97 mg/dL Normal 55-[address] [facility] Comment on above: Result Comment: If t his glucose result represents a fasting glucose, interpretation should refer to the following reference range: 55-99 mg/dL Performed By: #### 1 9323208, 9135561, 6028805, 8264990 ####[facility] [address] [place] [address] Potassium [Moles/Vol] 4.6 mmol/L Normal 3.5-5.3 [facility] Comment on above: Performed By: #### 1 0699568, 5137308, 0549466, 6438556 ####[facility] [address] [place] [address] Sodium [Moles/Vol] 138 mmol/L Normal 135-[address] [facility] Comment on above: Performed By: #### 1 3506662, 5988694, 3091311, 5410352 ####[facility] [address] [place] [address] Urea nitrogen [Mass/Vol] 24 mg/dL High 5-[address] [facility] Comment on above: Performed By: #### 1 3685851, 4732371, 8831967, 2739115 ####[facility] [address] [place] [address] Urea nitrogen/Creatinine [Mass ratio] 18 No Units Normal 10-[address] [facility] Comment on above: Performed By: #### 1 1449909, 7715019, 8160212, 6719521 ####[facility] [address] [place] [address] CHEMISTRYOrdered By: Lab ROP User on 12-01-2022 Glucose [Mass/Vol] 114 mg/dL High 55 - 99 mg/dL [facility] [place] POC Subsection Comment on above: Result Comment: Gareth guerrero RN/ POC Device SN [id number] Invalid Interpretation Code [facility] [place] POC Subsection POC User ID [id number] Invalid Interpretation Code [facility] [place] POC Subsection POC Username NETO CHEEK Invalid Interpretation Code [facility] [...] 4.6 mmol/L Normal 3.5 - 5.3 mmol/L [facility] [place] Remisol Sodium [Moles/Vol] 138 mmol/L Normal 135 [...] activity/Vol] 211 Int._Unit/L Normal 14-[address] [facility] Comment on above: Performed By: #### 1 9626347, 4269929, 6893473, 4242446 ####[facility] [address] [place] [address] Capillary Glucose POCon 11-21 Glucose [Mass/Vol] 114 mg/dL High 55-[address] [facility] Comment on above: Result Comment: Gareth GARDINER Performed By: #### 2 19294760 ####[facility] [address] [place] [address] Glucose [Mass/Vol] 193 mg/dL High 55-[address] [facility] Comment on above: Result Comment: Gareth GARDINER Performed By: #### 2 25508326 ####[facility] [address] [place] [address] Glucose [Mass/Vol] 203 mg/dL High 55-[address] [facility] Comment on above: Result Comment: Gareth GARDINER Performed By: #### 2 59200685 ####[facility] [address] [place] [address] Glucose [Mass/Vol] 110 mg/dL High 55-[address] [facility] Comment on above: Result Comment: Gareth GARDINER Performed By: #### 2 14094449 ####[facility] [address] [place] [address] Interdisciplinary Note - Santosh e Manageron 12-01-2022 Interdisciplinary Note - Chinchilla Machine Operator Pt is asleep in bed, no family present. Pt is accepted to [facility] side, pending precert at this time. Contact information provided and white board updated, CRM following Normal [facility] Comment on above: Result Comment: Elec tronically Signed By: Dank HAYDEN, Lisa\.br\Date and Time Signed: 12/01/22 08:20 EDT Ionized Calciumon 12-01-2022 Calcium.ionized ISE [Mass/Vol] 4.8 mg/dL Invalid Interpretation Code 4.5-5.[address] [facility] Comment on above: Result Comment: Perf ormed at: [facility] [address] [place], [place] [id number] PhD Michael Cortes Performed By: #### 2 288351, 8636355, 9048848, 76830940, 93718017, 5338313, 49612755, 1072465, 03076996, 264118017, 7524356, 0343789 ####[facility] [address] [place] [address] Magnesiumon 12-01-2022 Magnesium [Mass/Vol] 2.1 mg/dL Normal 1.3-2.4 [facility] Comment on above: Performed By: #### 1 1483873, 7527122, 2829324, 8102282 ####[facility] [address] [place] [address] Progress Note-Physicianon Progress Note-Physician Normal [facility] Comment on above: Result Comment: Elec tronically Signed By: Pao POTTS, Lizeth\.br\Date and Time Signed: 12/01/22 12:41 EDT XR Abdomen 1 Viewon 12-02-19 23 XR Abdomen 1 View Normal [facility] eGFRon 12-01-2022 GFR/1.73 sq M.predicted among non-blacks MDRD (S/P/Bld) [Vol rate/Area] 56 mL/min/1.73 m2 Low >=[address] [facility] Comment on above: Order Comment: Order added by Discern Expert. Result Comment: Physiologist earnest kidney disease could be indicated at eGFR's of less than 60 mL/min/1.73m2. Kidney failure is indicated at less than 15 mL/min/1.73m2. Performed By: #### 1 2932118, 9488385, 6868223, 4573303 ####[facility] [address] [place] [address] BMPon 11-30-2022 Anion gap [Moles/Vol] 11 mmol/L Normal 6-16 [facility] Comment on above: Performed By: #### 2 721477, 1183209, 28711987 ####[facility] [address] [place] [address] Calcium [Mass/Vol] 9.0 mg/dL Normal 8.9-11.[address] [facility] Comment on above: Performed By: #### 2 011993, 4039143, 71182063 ####[facility] [address] [place] [address] Chloride [Moles/Vol] 102 mmol/L Normal 101-111 [facility] Comment on above: Performed By: #### 2 403174, 6722825, 56233267 ####[facility] [address] [facility]Nsaint [place] [place] [address] CO2 [Moles/Vol] 31 mmol/L Normal 21-31 [facility] Comment on above: Performed By: #### 2 996219, 5544239, 06574909 ####[facility] [address]Ns[facility] [place] [address] Creatinine [Mass/Vol] 1.1 mg/dL Normal 0.5-1.3 [facility] Comment on above: Performed By: #### 2 007227, 0818722, 68749353 ####[facility] [address]Nsaint [facility] [place] [address] Glucose [Mass/Vol] 114 mg/dL Normal 55-[address] [facility] Comment on above: Result Comment: If t his glucose result represents a fasting glucose, interpretation should refer to the following reference range: 55-99 mg/dL Performed By: #### 2 697627, 5616395, 80144607 ####[facility] [address] [place] [address] Potassium [Moles/Vol] 3.4 mmol/L Low 3.5-5.3 [facility] Comment on above: Performed By: #### 2 034498, 9993324, 73245218 ####[facility] [address] [place] [address] Sodium [Moles/Vol] 141 mmol/L Normal 135-[address] [facility] Comment on above: Performed By: #### 2 736042, 7485437, 63029248 ####[facility] [address] [place] [address] Urea nitrogen [Mass/Vol] 23 mg/dL High 5-[address] [facility] Comment on above: Performed By: #### 2 628047, 6376060, 71165012 ####[facility] [address] [place] [address] Urea nitrogen/Creatinine [Mass ratio] 21 No Units High 10-[address] [facility] Comment on above: Performed By: #### 2 356413, 7720034, 95597855 ####[facility] [address] [place] [address] CHEMISTRYOrdered By: SYSTEM SYSTEM on 11-30-2022 Anion gap [Moles/Vol] 11 mmol/L Normal 6 - 16 mEq/L [facility] [place] Remisol Calcium [Mass/Vol] 9.0 mg/dL Normal 8.9 - 11. 1 mg/dL [facility] [place] Remisol Chloride [Moles/Vol] 102 mmol/L Normal 101 [...] mg/dL Normal 1.3 - 2 .4 mg/dL [facility] [place] Remisol Potassium [Moles/Vol] 3.4 mmol/L Low 3.5 [...] [Mass/Vol] 194 mg/dL High 55-[address] [facility] Comment on above: Result Comment: Gareth GARDINER Performed By: #### 2 [id number] ####[facility] [address] [place] [address] Glucose [Mass/Vol] 96 mg/dL Normal 55-[address] [facility] Comment on above: Performed By: #### 2 09917044 ####[facility] [address] [place] [address] Glucose [Mass/Vol] 130 mg/dL High 55-[address] [facility] Comment on above: Result Comment: Gareth GARDINER Performed By: #### 2 36435260 ####[facility] [address] [place] [address] Glucose [Mass/Vol] 113 mg/dL High 55-[address] [facility] Comment on above: Result Comment: Gareth GARDINER Performed By: #### 2 [id number] ####[facility] [address] [place] [address] Echo Transthoracic Completeo n 11-30-2022 Echo Transthoracic Complete Normal [facility] Insurance Correspondence Off iceon 11-30-2022 Insurance Correspondence Office [id number] 0CD:[address] [facility] Interdisciplinary Note - Santosh e Manageron 11-30-2022 Interdisciplinary Note - Chinchilla Machine Operator Normal [facility] Comment on above: Result Comment: Elec tronically Signed By: Dank HAYDEN, Lisa\.br\Date and Time Signed: 11/30/22 10:48 EDT Magnesiumon 11-30-2022 Magnesium [Mass/Vol] 1.8 mg/dL Normal 1.3-2.4 [facility] Comment on above: Performed By: #### 2 264052, 8433825, 03872182 ####[facility] [address] [place] [address] Message from Medicareon 11-21 Message from Medicare [id number] 0CD:[address] [facility] Progress Note-Physicianon Progress Note-Physician Normal [facility] Comment on above: Result Comment: Elec tronically Signed By: Joanie Jiménez MD\.br\Date and Time Signed: 11/30/22 15:13 EDT Progress Note-Physician Normal [facility] Comment on above: Result Comment: Elec tronically Signed By: Lizeth Cedeno MD\.br\Date and Time Signed: 11/30/22 14:52 EDT UA With Cult Reflexon 2022 Bacteria LM Ql (Urine sed) TRACE Normal Trace [facility] Comment on above: Order Comment: Urina ry Catheter Insertion triggered Urinalysis With Culture Reflex order by discern. Performed By: #### 1 0761268 ####[facility] [address] [place] [address] Bilirubin Ql (U) Negative Normal Negative [facility] Comment on above: Order Comment: Urina ry Catheter Insertion triggered Urinalysis With Culture Reflex order by discern. Performed By: #### 1 1102700 ####[facility] [address] [place] [address] Clarity (U) CLEAR Normal Clear [facility] Comment on above: Order Comment: Urina ry Catheter Insertion triggered Urinalysis With Culture Reflex order by discern. Performed By: #### 1 4483243 ####[facility] [address] [place] [address] Color (U) YELLOW Normal Yellow [facility] Comment on above: Order Comment: Urina ry Catheter Insertion triggered Urinalysis With Culture Reflex order by discern. Performed By: #### 1 5563081 ####[facility] [address] [place] [address] Epithelial cells.squamous LM.HPF (Urine sed) [#/Area] 0-2 Normal 0-2 [facility] Comment on above: Order Comment: Urina ry Catheter Insertion triggered Urinalysis With Culture Reflex order by discern. Performed By: #### 1 8295443 ####[facility] [address] [place] [address] Glucose Test strip (U) [Mass/Vol] Negative Normal Negative [facility] Comment on above: Order Comment: Urina ry Catheter Insertion triggered Urinalysis With Culture Reflex order by discern. Performed By: #### 1 8358934 ####[address] [address] Hemoglobin Ql (U) Negative Normal Negative [facility] Comment on above: Order Comment: Urina ry Catheter Insertion triggered Urinalysis With Culture Reflex order by discern. Performed By: #### 1 2351781 ####[address] [address] Ketones (U) [Mass/Vol] Negative Normal Negative [facility] Comment on above: Order Comment: Urina ry Catheter Insertion triggered Urinalysis With Culture Reflex order by discern. Performed By: #### 1 7963379 ####[address] [address] [place].plasma/[place].R BC (Bld) [Mass ratio] 0-3 Normal 0-3 [facility] Comment on above: Order Comment: Urina ry Catheter Insertion triggered Urinalysis With Culture Reflex order by discern. Performed By: #### 1 6303364 ####[facility] [address] [place] [address] Nitrite Ql (U) Negative Normal Negative [facility] Comment on above: Order Comment: Urina ry Catheter Insertion triggered Urinalysis With Culture Reflex order by discern. Performed By: #### 1 0168407 ####[address] [place] [address] pH (U) 6.0 [pH] Invalid Interpretation Code 5.0-9.[address] [facility] Comment on above: Order Comment: Urina ry Catheter Insertion triggered Urinalysis With Culture Reflex order by discern. Performed By: #### 1 6567914 ####[address] [address] Protein (U) [Mass/Vol] Negative Normal Negative [facility] Comment on above: Order Comment: Urina ry Catheter Insertion triggered Urinalysis With Culture Reflex order by discern. Performed By: #### 1 8673298 ####[address] [address] Specific gravity (U) [Rel density] 1.010 Invalid Interpretation Code 1.005-1.[address] [facility] Comment on above: Order Comment: Urina ry Catheter Insertion triggered Urinalysis With Culture Reflex order by discern. Performed By: #### 1 3212530 ####[address] [address] Type of Urine collection method Red Normal [facility] Comment on above: Order Comment: Urina ry Catheter Insertion triggered Urinalysis With Culture Reflex order by discern. Performed By: #### 1 5835512 ####[address] [address] Urobilinogen Qn (U) 0.2 {Lei'U}/dL Normal 0.0-1.[address] [facility] Comment on above: Order Comment: Urina ry Catheter Insertion triggered Urinalysis With Culture Reflex order by discern. Performed By: #### 1 2243688 ####[address] [address] WBC Auto Ql (U) Negative Normal Negative [facility] Comment on above: Order Comment: Urina ry Catheter Insertion triggered Urinalysis With Culture Reflex order by discern. Performed By: #### 1 4200448 ####[address] [address] WBC casts LM.LPF (Urine sed) [#/Area] 0-[address] [facility] Comment on above: Order Comment: Urina ry Catheter Insertion triggered Urinalysis With Culture Reflex order by discern. Performed By: #### 1 1388791 ####[facility] [address] [place] [address] WBC LM.HPF (Urine sed) [#/Area] 0-5 Normal 0-[address] [facility] Comment on above: Order Comment: Urina ry Catheter Insertion triggered Urinalysis With Culture Reflex order by discern. Performed By: #### 1 1879352 ####[facility] [address] [place] [address] URINALYSISOrdered By: Houston Castillo on 11-30-2022 Bacteria [...] AM) Normal Negative [facility] UA Auto SS [place].plasma/[place].R BC (Bld) [Mass ratio] 0-3 /HPF Normal [...] AM) Invalid Interpretation Code 1.005 - 1.030 [facility] [place] UA Auto SS UA Spec Desc Red (11/30/22 11:00 AM) Normal [facility] [place] UA Auto SS Urobilinogen Qn (U) 0.8833930 {Lei'U}/dL Normal 0.0 - 1.0 EU/dL [facility] [...] 69 mL/min/1.73 m2 Normal >=[address] [facility] Comment on above: Order Comment: Order added by Discern Expert. Result Comment: Physiologist earnest kidney disease could be indicated at eGFR's of less than 60 mL/min/1.73m2. Kidney failure is indicated at less than 15 mL/min/1.73m2. Performed By: #### 2 123478, 4145792, 16078335 ####[facility] [address] [place] [address] Auto Diffon 11-29-2022 Basophils/100 WBC (Bld) 0.5 % Normal 0.0-2.0 [facility] Comment on above: Order Comment: Order Added by Discern Expert. Performed By: #### 2 260711, 6482098, 8087763, 39577004, 31099582, 1986402, 86481105, 5046093, 17428572, 982166705, 1387576, 0060165 ####[facility] [address] [place] [address] Basophils/Leukocytes Auto (Bld) [Pure # fraction] 0.0 E9/L Normal 0.0-0.[address] [facility] Comment on above: Order Comment: Order Added by Discern Expert. Performed By: #### 2 484300, 1099122, 1715675, 05514693, 83194149, 3277253, 23807289, 9502724, 63484111, 011840049, 1160976, 9763932 ####[facility] [address] [place] [address] Eosinophils/100 WBC (Bld) 8.4 % High 0.0-8.[address] [facility] Comment on above: Order Comment: Order Added by Discern Expert. Performed By: #### 2 214715, 0848692, 9977499, 73598178, 18699316, 9669091, 33668592, 8465830, 06346358, 824195960, 0679564, 3807753 ####[address] [address] Eosinophils/Leukocytes Auto (Bld) [Pure # fraction] 0.6 E9/L High 0.0-0.[address] [facility] Comment on above: Order Comment: Order Added by Discern Expert. Performed By: #### 2 597021, 1451251, 5689326, 08204388, 81193580, 4869215, 52570321, 0509610, 12731985, 002075685, 2087078, 8802618 ####[address] [place] [address] Lymphocytes/100 WBC (Bld) 15.8 % Normal 14.0-50.[address] [facility] Comment on above: Order Comment: Order Added by Discern Expert. Performed By: #### 2 260653, 2630568, 7556618, 78413453, 16035156, 3477256, 12223140, 7391824, 69814242, 569124140, 8757805, 2932245 ####[address] [place] [address] Lymphocytes/Leukocytes Auto (Bld) [Pure # fraction] 1.2 E9/L Normal 1.0-4.[address] [facility] Comment on above: Order Comment: Order Added by Discern Expert. Performed By: #### 2 376377, 7897297, 9817127, 99168627, 46117860, 1339786, 14025863, 9381803, 91463479, 614883603, 1622708, 4007869 ####[facility] [address] [place] [address] Monocytes/100 WBC (Bld) 8.4 % Normal 4.0-14.0 [facility] Comment on above: Order Comment: Order Added by Discern Expert. Performed By: #### 2 922907, 9432636, 0607484, 21253564, 77487218, 0118226, 33320903, 8224488, 14597940, 507629737, 1671273, 4890888 ####[address] [address] Monocytes/Leukocytes Auto (Bld) [Pure # fraction] 0.6 E9/L Normal 0.2-1.[address] [facility] Comment on above: Order Comment: Order Added by Discern Expert. Performed By: #### 2 136418, 0130720, 2217385, 02974239, 38874363, 6121827, 54711601, 8802962, 74323159, 849301024, 6368799, 8303101 ####[facility] [address] [place] [address] Neutrophils/100 WBC (Bld) 66.9 % Normal 36.0-75.[address] [facility] Comment on above: Order Comment: Order Added by Discern Expert. Performed By: #### 2 799395, 0558046, 9693902, 36815358, 99996698, 8488278, 72146159, 3864413, 65720596, 018062442, 1706406, 7478158 ####[facility] [address] [place] [address] Neutrophils/Leukocytes Auto (Bld) [Pure # fraction] 5.0 E9/L Normal 2.0-7.[address] [facility] Comment on above: Order Comment: Order Added by Discern Expert. Performed By: #### 2 520441, 2557736, 2026994, 02657064, 27496891, 0587874, 27022017, 6212849, 64898440, 594782893, 8985652, 8153985 ####[facility] [address] [place] [address] BMPon 11-29-2022 Anion gap [Moles/Vol] 13 mmol/L Normal 6-16 [facility] Comment on above: Performed By: #### 2 281371, 5715567, 2537128, 24308975, 64133458, 4478618, 44811256, 0165598, 65894913, 072627318, 4179908, 1813217 ####[facility] [address] [place] [address] Calcium [Mass/Vol] 9.1 mg/dL Normal 8.9-11.[address] [facility] Comment on above: Performed By: #### 2 713947, 6556940, 0886831, 22907218, 37206708, 5158818, 81064766, 0795776, 12179535, 068215346, 0606665, 5559209 ####[facility] [address] [place] [address] Chloride [Moles/Vol] 102 mmol/L Normal 101-111 [facility] Comment on above: Performed By: #### 2 422018, 0099870, 0505783, 28667866, 82819985, 8045940, 33450741, 5560571, 72111739, 565023291, 9656756, 4792111 ####[facility] [address] [place] [address] CO2 [Moles/Vol] 29 mmol/L Normal 21-31 [facility] Comment on above: Performed By: #### 2 483879, 1010593, 1465587, 00409187, 00547539, 1035219, 51291903, 6896840, 63699559, 348754493, 0909776, 8665382 ####[facility] [address] [place] [address] Creatinine [Mass/Vol] 1.1 mg/dL Normal 0.5-1.3 [facility] Comment on above: Performed By: #### 2 631628, 1946454, 9677158, 43145448, 75709307, 0034420, 45846189, 6474885, 92687555, 868963001, 0633518, 2406676 ####[facility] [address] [place] [address] Glucose [Mass/Vol] 95 mg/dL Normal 55-[address] [facility] Comment on above: Result Comment: If t his glucose result represents a fasting glucose, interpretation should refer to the following reference range: 55-99 mg/dL Performed By: #### 2 392663, 7113688, 5829294, 82858285, 16410169, 9208734, 96873936, 9135513, 68394340, 824180372, 7828167, 1766596 ####[facility] [address] [place] [address] Potassium [Moles/Vol] 3.9 mmol/L Normal 3.5-5.3 [facility] Comment on above: Performed By: #### 2 986781, 7015877, 5579348, 39127581, 03098801, 5310921, 04287220, 8229619, 97964321, 770612709, 8801160, 7341614 ####[facility] [address] [place] [address] Sodium [Moles/Vol] 140 mmol/L Normal 135-[address] [facility] Comment on above: Performed By: #### 2 933463, 7653986, 7642599, 24650861, 22415761, 3637530, 93148635, 1354566, 00585674, 327238755, 1022126, 1037253 ####[facility] [address] [place] [address] Urea nitrogen [Mass/Vol] 16 mg/dL Normal 5-[address] [facility] Comment on above: Performed By: #### 2 377754, 0221232, 5295394, 74884517, 54010556, 7721489, 84468766, 1055045, 24627708, 185167069, 1348408, 5399509 ####[facility] [address] [place] [address] Urea nitrogen/Creatinine [Mass ratio] 14 No Units Normal 10-[address] [facility] Comment on above: Performed By: #### 2 346992, 1198104, 1173996, 34661887, 31579574, 1295918, 26803491, 4777467, 91442135, 649821136, 3792417, 9001920 ####[facility] [address] [place] [address] BNPon 11-29-2022 Natriuretic peptide B (Bld) [Mass/Vol] 855 pg/mL High 5-[address] [facility] Comment on above: Performed By: #### 2 664032, 8837210, 4020226, 04395954, 45388018, 8803869, 59243331, 2068367, 68621489, 881418625, 0815999, 6712637 ####[facility] [address] [place] [address] CBC w/ Auto Diffon 3 Erythrocyte distribution width (RBC) [Ratio] 14.9 % High 10.9-14.[address] [facility] Comment on above: Performed By: #### 2 467775, 1852949, 5060202, 18976651, 26662756, 8787023, 90746859, 7012999, 84420087, 150573125, 1522121, 9861618 ####[facility] [address] [place] [address] Hematocrit (Bld) [Volume fraction] 38.1 % Normal 37.7-49.[address] [facility] Comment on above: Performed By: #### 2 426363, 2071518, 5318905, 80191755, 83081253, 4553756, 10522217, 2270722, 76965732, 673115139, 5627101, 2073307 ####[facility] [address] [place] [address] Hemoglobin (Bld) [Mass/Vol] 12.8 g/dL Low 13.5-17.[address] [facility] Comment on above: Performed By: #### 2 041347, 2424705, 0153928, 66108563, 60289984, 2889080, 23006911, 4286715, 21618135, 344562321, 0361685, 3600075 ####[facility] [address] [place] [address] MCH (RBC) [Entitic mass] 29.0 pg Normal 27.0-34.[address] [facility] Comment on above: Performed By: #### 2 944573, 4819815, 8273366, 64026428, 08931948, 9117976, 94763373, 3948058, 29677433, 496426209, 5110669, 8359880 ####[address] [address] MCHC (RBC) [Mass/Vol] 33.7 g/dL Normal 31.4-36.0 [facility] Comment on above: Performed By: #### 2 623038, 0230610, 7449752, 25390654, 03706249, 9975037, 11439331, 6984705, 10790907, 349503470, 4650305, 4421369 ####[facility] [address] [place] [address] MCV (RBC) [Entitic vol] 86.1 fL Normal 80.0-100.0 [facility] Comment on above: Performed By: #### 2 400111, 2058470, 3521443, 75935865, 84012738, 8469870, 94531836, 4025909, 25377802, 580112426, 8948533, 8056386 ####[facility] [address] [place] [address] Platelet mean volume (Bld) [Entitic vol] 10.9 fL High 6.4-10.[address] [facility] Comment on above: Performed By: #### 2 327888, 7355673, 4564873, 54787413, 82717809, 3614374, 02684115, 5925367, 69455051, 701441453, 6188315, 4404835 ####[address] [place] [address] Platelets (Bld) [#/Vol] 189.0 E9/L Normal 150.0-500.[address] [facility] Comment on above: Performed By: #### 2 295312, 2644527, 0668737, 36092379, 91119179, 9935920, 83334915, 9221756, 67143893, 551426844, 1016509, 0969565 ####[address] [address] RBC (Bld) [#/Vol] 4.4 E12/L Normal 4.3-5.[address] [facility] Comment on above: Performed By: #### 2 177497, 0080473, 5956360, 06306883, 84734383, 6039365, 91844949, 2050286, 30020818, 142021005, 7289110, 3935156 ####[address] [place] [address] WBC corrected for nucl RBC Auto (Bld) [#/Vol] 7.4 E9/L Normal 4.0-11.0 [facility] Comment on above: Performed By: #### 2 982293, 3839457, 9160914, 49602129, 52694826, 8122319, 75689951, 0781200, 32552526, 583875072, 9515140, 0469270 ####[address] [address] CHEMISTRYOrdered By: SYSTEM SYSTEM on 11-29-2022 Albumin [...] Triglyceride [Mass/Vol] 72 mg/dL Normal <=149mg/dL F [facility] Remisol TSH Qn 3.43 m[IU]/L Normal 0.34 [...] above: Result Comment: Perf ormed at: [facility] [address] [place], [place] [id number] PhD Chasejosie Sebastian Thon 11-29-2022 CK [Catalytic activity/Vol] 1096 Int._Unit/L Abnormal 14-[address] [facility] Comment on above: Result Comment: Crit ical Result verified by repeat analysis\Critical Result [id number] Called to MANAS BARBA AT by AMY JOHNSON and read back for confirmation at 11/29/2022 06:40:15 Performed By: #### 2 360383, 3413474, 9974517, 16501857, 37781728, 3632501, 67219836, 7591336, 03604630, 982539261, 8531618, 9286408 ####[facility] [address] [place] [address] CT Abdomen/Pelvis w/ Contras ton 11-29-2022 CT Abdomen/Pelvis w/ Contrast Normal [facility] CT Head or Brain w/o Contras ton 11-29-2022 CT Head or Brain w/o Contrast Normal [facility] CTA Cheston 11-29-2022 CTA Chest Normal [facility] Capillary Glucose POCon Glucose [Mass/Vol] 122 mg/dL High 55-[address] [facility] Comment on above: Result Comment: Gareth GARDINER Performed By: #### 2 57585431 ####[facility] [address] [place] [address] Glucose [Mass/Vol] 174 mg/dL High 55-[address] [facility] Comment on above: Performed By: #### 2 77732659 ####[facility] [address] [place] [address] Glucose [Mass/Vol] 107 mg/dL High 55-[address] [facility] Comment on above: Result Comment: Gareth GARDINER Performed By: #### 2 98216857 ####[facility] [address] [place] [address] Consultation Noteon 11-30-19 Consultation Note Normal [facility] Comment on above: Result Comment: Elec tronically Signed By: New Velazquez MD\.br\Date and Time Signed: 11/29/22 14:44 EDT ED Clinical Summaryon 2022 ED Clinical Summary Normal Navi faye [facility] ED Note-Physicianon 11-30-19 ED Note-Physician Normal [facility] Comment on above: Result Comment: Elec tronically Signed By: Elkin Hitchcock DO.br\Date and Time Signed: 11/28/22 22:32 EDT ED Patient Education Noteon 11-29-2022 ED Patient Education Note Normal [facility] ED Patient Summaryon 023 ED Patient Summary Normal [facility] HEMATOLOGYOrdered By: SYSTEM SYSTEM on [...] [Mass/Vol] 3.6 g/dL Normal 3.3-5.[address] [facility] Comment on above: Performed By: #### 2 899372, 4039313, 2856983, 55091829, 73240798, 6146609, 93103203, 6905744, 79763993, 766953857, 3954343, 4546054 ####[facility] [address] [place] [address] Albumin/Globulin (S) [Mass conc ratio] 1.2 Normal 1.1-2.[address] [facility] Comment on above: Performed By: #### 2 743758, 8436048, 4468341, 45505315, 24687092, 3482366, 32070150, 3161824, 21776977, 985017426, 4966666, 5717877 ####[facility] [address] [place] [address] ALP [Catalytic activity/Vol] 40 Int._Unit/L Normal 21-[address] [facility] Comment on above: Performed By: #### 2 114099, 2876276, 0104141, 00965847, 61251443, 7876010, 96381285, 3729097, 51275720, 507401939, 5262349, 9600190 ####[address] [place] [address] ALT No additional P-5'-P [Catalytic activity/Vol] 17 Int._Unit/L Normal 6-[address] [facility] Comment on above: Performed By: #### 2 296259, 9766246, 9042704, 23851479, 94229593, 6099129, 08331886, 6037209, 48610826, 245273087, 3466619, 2485591 ####[address] [address] AST [Catalytic activity/Vol] 33 Int._Unit/L Normal 5-[address] [facility] Comment on above: Performed By: #### 2 667790, 5897110, 6799607, 97393622, 08131116, 3887490, 13821038, 9599531, 71135738, 203433517, 2378523, 1721456 ####[facility] [address] [place] [address] Bilirubin [Mass/Vol] 1.1 mg/dL Normal 0.0-1.1 [facility] Comment on above: Performed By: #### 2 599890, 0546939, 6103126, 64680034, 43486733, 6827635, 89387379, 9346915, 07832269, 505344394, 3749194, 7149673 ####[address] [place] [address] Bilirubin.direct [Mass/Vol] 0.2 mg/dL Normal 0.1-0.[address] [facility] Comment on above: Performed By: #### 2 017836, 9192660, 9002830, 03374483, 32422435, 0748579, 35025709, 0381035, 04540168, 898193963, 4438494, 3450010 ####[facility] [address] [place] [address] Bilirubin.indirect [Mass or moles/Vol] 0.9 mg/dL Normal 0.1-0.[address] [facility] Comment on above: Performed By: #### 2 271672, 0725703, 1771160, 06372216, 58933346, 1522297, 24901713, 5367578, 87155796, 222333796, 4030527, 5812464 ####[facility] [address] [place] [address] Globulin (S) [Mass/Vol] 3.1 g/dL Normal 1.4-4.0 [facility] Comment on above: Performed By: #### 2 356505, 6091156, 9087911, 52951007, 81921615, 2477981, 26565019, 0048061, 81809392, 233340451, 9813634, 4498819 ####[facility] [address] [place] [address] Protein [Mass/Vol] 6.7 g/dL Normal 6.0-7.[address] [facility] Comment on above: Performed By: #### 2 584656, 8683607, 3270836, 60105640, 55072185, 6369666, 19984065, 9757471, 51710124, 710235659, 8574427, 6959436 ####[facility] [address] [place] [address] Interdisciplinary Note - Santosh e Manageron 11-29-2022 Interdisciplinary Note - Chinchilla Machine Operator Normal [facility] Comment on above: Result Comment: Elec tronically Signed By: Jose RN, Norma\.br\Date and Time Signed: 11/29/22 15:07 EDT Lipid Panelon 11-29-2022 Cholesterol [Mass/Vol] 114 mg/dL Low 120-200 [facility] Comment on above: Performed By: #### 2 865072, 4330775, 3158183, 02800432, 66222590, 2780384, 90711943, 4436893, 87281766, 275910724, 2339127, 6733676 ####[facility] [address] [place] [address] Cholesterol in HDL [Mass/Vol] 50 mg/dL Invalid Interpretation Code [facility] Comment on above: Result Comment: HDL > or equal to 60 mg/dL: Low cardiovascular riskHDL < 40 mg/dL : High cardiovascular risk Performed By: #### 2 139142, 5376311, 9854545, 77274523, 06822825, 1282455, 83246698, 6071231, 96815045, 053558164, 7183546, 3027490 ####[facility] [address] [place] [address] Cholesterol in LDL [Mass/Vol] 43 mg/dL Normal <=[address] [facility] Comment on above: Performed By: #### 2 321983, 0387446, 9943280, 68460012, 71207643, 1817619, 78266135, 4601761, 27772093, 845518211, 3293989, 1079741 ####[facility] [address]aint [place] [address] Cholesterol in VLDL [Mass/Vol] 14 mg/dL Normal 7-[address] [facility] Comment on above: Performed By: #### 2 058778, 3909053, 1414826, 81230089, 41803872, 5295197, 09051686, 2298993, 23927206, 619243278, 6257879, 2441663 ####[facility] [address] [place] [address] Triglyceride [Mass/Vol] 72 mg/dL Normal <=149 [facility] Comment on above: Performed By: #### 2 860123, 7024443, 5080832, 56588921, 52616821, 4723523, 47352928, 3529928, 62786494, 444588173, 1966657, 4677468 ####[facility] [address] [place] [address] Monitor Recordon 11-29-2022 Monitor Record [id number]#1. 00CD:[address] [facility] Monitor Record [id number]#1. 00CD:[address] [facility] Monitor Record [id number]#1. 00CD:[address] [facility] Monitor Record [id number]#1. 00CD:[address] [facility] Monitor Record [id number]#1. 00CD:[address] [facility] Monitor Record [id number] 70 [id number]#1. 00CD:[address] [facility] Monitor Record [id number] 70 [id number]#1. 00CD:[address] [facility] Monitor Record [id number] 70 [id number]#1. 00CD:[address] [facility] Progress Note-Physicianon Progress Note-Physician Normal [facility] Comment on above: Result Comment: Elec tronically Signed By: New Johnson DO.br\Date and Time Signed: 11/29/22 10:54 EDT RAD - Preliminary Cat Scan R eporton 11-29-2022 RAD - Preliminary Cat Scan Report [id number]#1 .00CD:[address] [facility] Sed Rate Automatedon 023 Sed Rate Automated 17 mm/hr Normal 0-[address] [facility] Comment on above: Performed By: #### 2 406607, 3335350, 2378174, 35588643, 51256148, 8824083, 09696979, 5281804, 85412520, 631704010, 2208269, 2093172 ####[facility] [address] [place] [address] TSH With T4fr Reflexon 11-29 TSH Qn 3.43 m[IU]/L Normal 0.34-5.[address] [facility] Comment on above: Performed By: #### 2 445743, 6421377, 3909952, 30437963, 48332809, 7509363, 02062965, 4064793, 50062392, 889478984, 2247588, 8872053 ####[facility] [address] [place] [address] Troponin 6 Hr.on 11-29-2022 Troponin I.cardiac [Mass/Vol] 32.60 pg/mL Normal 15.90-38.[address] [facility] Comment on above: Result Comment: The 95% CI (Confidence Interval) PPV (Positive Predictive Value) for myocardial infarction in females is 38 pg/mL, in males 51 pg/mL. The results should be used in conjunction with clinical conditions of myocardial infarction.(Access High Sensitivity Troponin I Instructions For Use, [place], December 2017) Performed By: #### 1 3781668 ####[facility] [address] [place] [address] Troponin 9 Hr.on 11-29-2022 Troponin I.cardiac [Mass/Vol] 37.00 pg/mL Normal 15.90-38.[address] [facility] Comment on above: Result Comment: The 95% CI (Confidence Interval) PPV (Positive Predictive Value) for myocardial infarction in females is 38 pg/mL, in males 51 pg/mL. The results should be used in conjunction with clinical conditions of myocardial infarction.(Access High Sensitivity Troponin I Instructions For Use, [place], December 2017) Performed By: #### 1 9988235 ####[facility] [address] [place] [address] Vitamin D 25 Hydroxyon 11-29 25-hydroxyvitamin D3 [Mass/Vol] ng/mL Low 30.0-100.[address] [facility] Comment on above: Result Comment: Vit palacios D deficiency has been defined as a level of serum 25-OH vitamin D less than 20 ng/mL (1,2) by the [place] [employer] and an Endocrine Society practice guideline. The Endocrine Society further defined vitamin D insufficiency as a level between 21 and 29 ng/mL (2). 1. IOM ([place] of [employer]). 2010. Dietary reference intakes for calcium and D. [place]: The National Academies Press. 2. Patricia MF, Parisa AGUIRRE, Reji PETERS, et al. Evaluation, treatment, and prevention of vitamin D deficiency: an Endocrine Society clinical practice guideline. JCEM. 2010; 96 (7):1911-30. Performed By: #### 2 727152, 5126882, 9115924, 84034280, 56697418, 3311237, 89842351, 0333320, 18150407, 146819137, 8207929, 6896288 ####[facility] [address] [place] [address] eGFRon 11-29-2022 GFR/1.73 sq M.predicted among non-blacks MDRD (S/P/Bld) [Vol rate/Area] 69 mL/min/1.73 m2 Normal >=[address] [facility] Comment on above: Order Comment: Order added by Discern Expert. Result Comment: Physiologist earnest kidney disease could be indicated at eGFR's of less than 60 mL/min/1.73m2. Kidney failure is indicated at less than 15 mL/min/1.73m2. Performed By: #### 2 461363, 3808984, 5913139, 79822323, 09985848, 7244265, 16415464, 6356527, 11089217, 455541397, 2418932, 6072224 ####[facility] [address] [place] [address] Auto Diffon 11-28-2022 Basophils/100 WBC (Bld) 0.7 % Normal 0.0-2.0 [facility] Comment on above: Order Comment: Order Added by Discern Expert. Performed By: #### 1 8997442, 9838850, 8146289, 6941641, 75873079 ####[address] [place] [address] Basophils/Leukocytes Auto (Bld) [Pure # fraction] 0.0 E9/L Normal 0.0-0.[address] [facility] Comment on above: Order Comment: Order Added by Discern Expert. Performed By: #### 1 7652655, 0255197, 1218281, 0860050, 37804692 ####[address] [place] [address] Eosinophils/100 WBC (Bld) 7.4 % Normal 0.0-8.[address] [facility] Comment on above: Order Comment: Order Added by Bethany Expert. Performed By: #### 1 9911065, 7728926, 3652681, 7831539, 53803498 ####[address] [address] Eosinophils/Leukocytes Auto (Bld) [Pure # fraction] 0.5 E9/L Normal 0.0-0.[address] [facility] Comment on above: Order Comment: Order Added by Bethany Expert. Performed By: #### 1 2420783, 4906435, 5773976, 6329888, 88058288 ####[address] [address] Lymphocytes/100 WBC (Bld) 9.3 % Low 14.0-50.[address] [facility] Comment on above: Order Comment: Order Added by Bethany Expert. Performed By: #### 1 9996968, 4298926, 9094601, 4319219, 63233591 ####[address] [place] [address] Lymphocytes/Leukocytes Auto (Bld) [Pure # fraction] 0.7 E9/L Low 1.0-4.[address] [facility] Comment on above: Order Comment: Order Added by Bethany Expert. Performed By: #### 1 1008870, 1296952, 9134308, 3469865, 29087909 ####[facility] [address] [place] [address] Monocytes/100 WBC (Bld) 6.6 % Normal 4.0-14.0 [facility] Comment on above: Order Comment: Order Added by Discern Expert. Performed By: #### 1 9055583, 4380411, 3867151, 9870933, 83594335 ####[facility] [address] [place] [address] Monocytes/Leukocytes Auto (Bld) [Pure # fraction] 0.5 E9/L Normal 0.2-1.[address] [facility] Comment on above: Order Comment: Order Added by Discern Expert. Performed By: #### 1 4255950, 9371888, 1321841, 8722476, 04005653 ####[address] [place] [address] Neutrophils/100 WBC (Bld) 76.0 % High 36.0-75.[address] [facility] Comment on above: Order Comment: Order Added by Bethany Expert. Performed By: #### 1 2168874, 8907032, 5977758, 2657793, 21917536 ####[address] [place] [address] Neutrophils/Leukocytes Auto (Bld) [Pure # fraction] 5.4 E9/L Normal 2.0-7.[address] [facility] Comment on above: Order Comment: Order Added by Discern Expert. Performed By: #### 1 1154284, 2791600, 4664504, 0220381, 59901150 ####[facility] [address] [place] [address] BMPon 11-28-2022 Creatinine [Mass/Vol] 1.0 mg/dL Normal 0.5-1.3 [facility] Comment on above: Performed By: #### 1 0293077, 2340902, 8919725, 1289148, 43681787 ####[address] [place] [address] Urea nitrogen [Mass/Vol] 16 mg/dL Normal 5-[address] [facility] Comment on above: Performed By: #### 1 9028803, 3142636, 5856314, 9155360, 60308391 ####[facility] [address] [place] [address] Urea nitrogen/Creatinine [Mass ratio] 16 No Units Normal 10-[address] [facility] Comment on above: Performed By: #### 1 9785445, 0767175, 0228021, 4311531, 41950648 ####[facility] [address] [place] [address] Anion gap [Moles/Vol] 10 mmol/L Normal 6-16 [facility] Comment on above: Performed By: #### 1 9203467, 7255332, 4890116, 7168419, 97480360 ####[facility] [address] [place] [address] Calcium [Mass/Vol] 8.8 mg/dL Low 8.9-11.[address] [facility] Comment on above: Performed By: #### 1 0589984, 5626397, 3127439, 2922582, 80723110 ####[facility] [address] [place] [address] Chloride [Moles/Vol] 105 mmol/L Normal 101-111 [facility] Comment on above: Performed By: #### 1 7681518, 5962200, 9896474, 2186447, 06198784 ####[facility] [address] [place] [address] CO2 [Moles/Vol] 28 mmol/L Normal 21-31 [facility] Comment on above: Performed By: #### 1 8596376, 3369088, 6420321, 7190940, 17275219 ####[facility] [address] [place] [address] Glucose [Mass/Vol] 114 mg/dL Normal 55-[address] [facility] Comment on above: Result Comment: If t his glucose result represents a fasting glucose, interpretation should refer to the following reference range: 55-99 mg/dL Performed By: #### 1 9942595, 2334249, 9381987, 6211816, 03608522 ####[facility] [address] [place] [address] Potassium [Moles/Vol] 4.1 mmol/L Normal 3.5-5.3 [facility] Comment on above: Performed By: #### 1 8072319, 5215618, 1752331, 6066168, 36342901 ####[facility] [address] [place] [address] Sodium [Moles/Vol] 139 mmol/L Normal 135-[address] [facility] Comment on above: Performed By: #### 1 8293532, 5930624, 4536448, 7426718, 88941263 ####[facility] [address] [place] [address] Blood Gas Art, with Lytes, G christal, [place] 11-28-2022 a/A Ratio Art 53.40 % Normal >=0.80 [facility] Comment on above: Performed By: #### 4 36853087 ####[facility] [address] [place] [address] AaDO2 Art 64.9 mmHg High 5.0-15.[address] [facility] Comment on above: Performed By: #### 4 97921621 ####[facility] [address] [place] [address] Allens Test Positive Normal [facility] Comment on above: Performed By: #### 4 72102690 ####[facility] [address] [place] [address] Base Excess Arterial 2.9 mmol/L Normal >=2.8 [facility] Comment on above: Performed By: #### 4 69073102 ####[facility] [address] [place] [address] cCa2+ Art 4.88 mg/dL Normal 4.40-5.[address] [facility] Comment on above: Performed By: #### 4 31584580 ####[facility] [address] [place] [address] cCl- Art 103.0 mmol/L Normal 101.0-111.0 [facility] Comment on above: Performed By: #### 4 88167464 ####[facility] [address] [place] [address] cGlu Art 98 mg/dL Normal 55-[address] [facility] Comment on above: Performed By: #### 4 57474072 ####[address] [place] [address] cK+ Art 3.6 mmol/L Normal 3.5-5.[address] [facility] Comment on above: Performed By: #### 4 73679104 ####[address] [address] cLac Art .6 mmol/L Normal .5-2.[address] [facility] Comment on above: Performed By: #### 4 99877079 ####[address] [place] [address] chute loader+ Art 139.0 mmol/L Normal 135.0-145.0 [facility] Comment on above: Performed By: #### 4 29196933 ####[address] [place] [address] Drawn by nmb Invalid Interpretation Code [facility] Comment on above: Performed By: #### 4 96118791 ####[address] [place] [address] FCOHb Art 1.5 % Normal 1.5-4.[address] [facility] Comment on above: Result Comment: Refe rence rangeNonsmoker <1.5%Smoker <5.0%Heavy Smoker <9.0% Performed By: #### 4 78468163 ####[facility] [address] [place] [address] FIO2 BG 28 Invalid Interpretation Code [facility] Comment on above: Performed By: #### 4 79810774 ####[address] [address] Flow 2 Invalid Interpretation Code [facility] Comment on above: Performed By: #### 4 22365799 ####[address] [address] FMetHb Art 0.3 % Normal 0.0-1.[address] [facility] Comment on above: Performed By: #### 4 39047845 ####[address] [address] FO2Hb Art 93.7 % Normal 93.0-100.[address] [facility] Comment on above: Performed By: #### 4 90506403 ####[address] [address] HCO3 (Bld) [Moles/Vol] 26.9 mmol/L High 22.0-26.0 [facility] Comment on above: Performed By: #### 4 27388223 ####[address] [address] Hemoglobin (Bld) [Mass/Vol] 11.9 g/dL Low 12.0-17.[address] [facility] Comment on above: Performed By: #### 4 67138809 ####[address] [address] Oxygen saturation in Blood 95.4 % Normal 95.0-100.[address] [facility] Comment on above: Performed By: #### 4 57359992 ####[address] [address] P CO2 Arterial 47.6 mmHg High 35.0-45.0 [facility] Comment on above: Performed By: #### 4 69926207 ####[address] [address] P O2 Arterial 74.3 mmHg Low 80.0-100.0 [facility] Comment on above: Performed By: #### 4 68109985 ####[address] [address] pH Arterial 7.387 Normal 7.350-7.[address] [facility] Comment on above: Performed By: #### 4 11798779 ####[facility] [address] [place] [address] Sample Site R Radial Normal [facility] Comment on above: Performed By: #### 4 93285711 ####[facility] [address] [place], [place] [address] Sample Type Arterial Draw Normal [facility] Comment on above: Performed By: #### 4 65174516 ####[facility] [address] [place] [address] CBC w/ Auto Diffon 3 Erythrocyte distribution width (RBC) [Ratio] 14.8 % High 10.9-14.[address] [facility] Comment on above: Performed By: #### 1 4278915, 7380834, 9539710, 1216908, 60423812 ####[facility] [address] [place] [address] Hematocrit (Bld) [Volume fraction] 37.3 % Low 37.7-49.[address] [facility] Comment on above: Performed By: #### 1 3570488, 6369518, 7157963, 5598537, 58122155 ####[address] [place] [address] Hemoglobin (Bld) [Mass/Vol] 12.3 g/dL Low 13.5-17.[address] [facility] Comment on above: Performed By: #### 1 9510102, 3134065, 7522764, 8860597, 75358363 ####[facility] [address] [place] [address] MCH (RBC) [Entitic mass] 28.3 pg Normal 27.0-34.[address] [facility] Comment on above: Performed By: #### 1 0432939, 0988539, 0864518, 5124426, 79060045 ####[facility] [address] [place] [address] MCHC (RBC) [Mass/Vol] 33.0 g/dL Normal 31.4-36.0 [facility] Comment on above: Performed By: #### 1 7721434, 1644116, 5358453, 3288751, 66902462 ####[facility] [address] [place] [address] MCV (RBC) [Entitic vol] 85.9 fL Normal 80.0-100.0 [facility] Comment on above: Performed By: #### 1 0410700, 4313715, 6052502, 5254918, 95517731 ####[address] [place] [address] Platelet mean volume (Bld) [Entitic vol] 10.4 fL Normal 6.4-10.[address] [facility] Comment on above: Performed By: #### 1 8450073, 0247223, 2949875, 2094246, 89476684 ####[place] [address] Platelets (Bld) [#/Vol] 189.0 E9/L Normal 150.0-500.[address] [facility] Comment on above: Performed By: #### 1 6376060, 8978798, 7461851, 5431808, 39986884 ####[place] [address] RBC (Bld) [#/Vol] 4.3 E12/L Normal 4.3-5.[address] [facility] Comment on above: Performed By: #### 1 8577028, 1386493, 2631428, 8669224, 52904900 ####[address] [place] [address] WBC corrected for nucl RBC Auto (Bld) [#/Vol] 7.1 E9/L Normal 4.0-11.0 [facility] Comment on above: Performed By: #### 1 8915367, 5363149, 3144377, 8244373, 73187553 ####[place] [address] CHEMISTRYOrdered By: SYSTEM SYSTEM on 11-28-2022 Troponin I.cardiac [Mass/Vol] 32.60 pg/mL Normal 15.90 - 38.40 pg/mL FT Remisol Troponin I.cardiac [Mass/Vol] 26.90 pg/mL Normal 15.90 - 38.40 pg/mL FT Remisol Consent for Treatmenton Consent for Treatment [id number]#1.0 0CD:[address] [facility] ED Note-Physicianon 11-29-19 ED Note-Physician Normal [facility] [...] - 2.2 mmol/L FT Resp Auto SS chute loader+ Art 139.0 mmol/L Normal 135.0 - 145.0 mmol/L FT Resp Auto SS Drawn by nmb Invalid Interpretation Code FT Resp Auto SS FCOHb Art 1.5 % Normal 1.5 - 4.9 % FT Resp Auto SS FIO2 BG 28 Invalid Interpretation Code FT Resp Auto SS Flow 2 Invalid Interpretation Code FT Resp Auto SS FMetHb Art 0.3 % Normal 0.0 - 1.9 % [facility] [place] Resp Auto SS FO2Hb Art 93.7 % Normal 93.0 - 100.0 % [facility] [place] Resp Auto SS HCO3 (Bld) [Moles/Vol] 26.9 [...] 74.3 mm[Hg] Low 80.0 - 100.0 mmHg [facility] [place] Resp Auto SS pH Arterial 7.387 Normal [...] 0.7 % Normal 0.0 - 2.0 % [facility] [place] HemeAutoSS Basophils/Leukocytes Auto (Bld) [Pure # fraction] [...] [facility] HemeAutoSS Pre-Arrival Noteon Pre-Arrival Note Normal [facility] Troponin 0 Hr.on 11-28-2022 Troponin I.cardiac [Mass/Vol] 21.80 pg/mL Normal 15.90-38.[address] [facility] Comment on above: Result Comment: The 95% CI (Confidence Interval) PPV (Positive Predictive Value) for myocardial infarction in females is 38 pg/mL, in males 51 pg/mL. The results should be used in conjunction with clinical conditions of myocardial infarction.(Access High Sensitivity Troponin I Instructions For Use, Claudia [place], December 2017) Performed By: #### 1 [id number], 4110071, 3600051, 1447681, [id number] ####[facility] [address] [place] [address] Troponin 3 Hr.on 11-28-2022 Troponin I.cardiac [Mass/Vol] 26.90 pg/mL Normal 15.90-38.[address] [facility] Comment on above: Result Comment: The 95% CI (Confidence Interval) PPV (Positive Predictive Value) for myocardial infarction in females is 38 pg/mL, in males 51 pg/mL. The results should be used in conjunction with clinical conditions of myocardial infarction.(Access High Sensitivity Troponin I Instructions For Use, Claudia [place], December 2017) Performed By: #### 1 [id number] ####[facility] [address] [place] [address] UA With Cult Reflexon 2022 Crystals LM Ql (Urine sed) Present Normal [facility] Comment on above: Performed By: #### 1 [id number] ####[place] [id number] Epithelial cells.squamous LM.HPF (Urine sed) [#/Area] 0-2 Normal 0-2 [facility] Comment on above: Performed By: #### 1 [id number] ####[facility] [address] [place], [place] [id number] [place].plasma/[place].R BC (Bld) [Mass ratio] 0-3 Normal 0-3 [facility] Comment on above: Performed By: #### 1 7007826 ####[facility] [address] [place], [place] [address] Mucus Ql (Urine sed) TRACE Normal [facility] Comment on above: Performed By: #### 1 5936142 ####[facility] [address] [place] [address] WBC LM.HPF (Urine sed) [#/Area] 0-5 Normal 0-[address] [facility] Comment on above: Performed By: #### 1 3362973 ####[address] [address] Bilirubin Ql (U) Negative Normal Negative [facility] Comment on above: Performed By: #### 1 1031031 ####[facility] [address] [place] [address] Clarity (U) CLEAR Normal Clear [facility] Comment on above: Performed By: #### 1 9678362 ####[facility] [address] [place] [address] Color (U) YELLOW Normal Yellow [facility] Comment on above: Performed By: #### 1 0942464 ####[facility] [address] [place] [address] Glucose Test strip (U) [Mass/Vol] Negative Normal Negative [facility] Comment on above: Performed By: #### 1 5325576 ####[place] [address] [place] [address] Hemoglobin Ql (U) Negative Normal Negative [facility] Comment on above: Performed By: #### 1 8353135 ####[facility] [address] [place] [address] Ketones (U) [Mass/Vol] Negative Normal Negative [facility] Comment on above: Performed By: #### 1 7818714 ####[facility] [address] [place] [address] Nitrite Ql (U) Negative Normal Negative [facility] Comment on above: Performed By: #### 1 7604398 ####[facility] [address] [place] [address] pH (U) 6.0 [pH] Invalid Interpretation Code 5.0-9.[address] [facility] Comment on above: Performed By: #### 1 2472242 ####[facility] [address] [place] [address] Protein (U) [Mass/Vol] 2+ Abnormal Negative [facility] Comment on above: Performed By: #### 1 6848326 ####[place] [address] [place] [address] Specific gravity (U) [Rel density] 1.025 Invalid Interpretation Code 1.005-1.[address] [facility] Comment on above: Performed By: #### 1 0500595 ####[facility] [address] [place] [address] Type of Urine collection method Clean Catch Normal [facility] Comment on above: Performed By: #### 1 9848871 ####[facility] [address] [place] [address] Urobilinogen Qn (U) 0.2 {Lei'U}/dL Normal 0.0-1.[address] [facility] Comment on above: Performed By: #### 1 0877682 ####[facility] [address] [place] [address] WBC Auto Ql (U) Negative Normal Negative [facility] Comment on above: Performed By: #### 1 1830978 ####[facility] [address] [place] [address] URINALYSISOrdered By: Emily Suero on 11-28-2022 Bilirubin [...] PM) Normal Negative [facility] UA Auto SS [place].plasma/[place].R BC (Bld) [Mass ratio] 0-3 /HPF Normal [...] FT UA Auto SS Urobilinogen Qn (U) 0.0768054 {Lei'U}/dL Normal 0.0 - 1.0 EU/dL FT [...] 77 mL/min/1.73 m2 Normal >=[address] [facility] Comment on above: Order Comment: Order added by Discern Expert. Result Comment: Physiologist earnest kidney disease could be indicated at eGFR's of less than 60 mL/min/1.73m2. Kidney failure is indicated at less than 15 mL/min/1.73m2. Performed By: #### 1 3892210, 3462565, 5881423, 2578272, 46934409 ####[facility] [address] [place] [address] CHEMISTRYOrdered By: SYSTEM SYSTEM on 11-26-2022 Albumin [...] Triglyceride [Mass/Vol] 69 mg/dL Normal <=149mg/dL F [facility] Remisol TSH Qn 2.07 m[IU]/L Normal 0.34 - 5.60 mcIU/mL FT [facility] Urea nitrogen [Mass/Vol] 18 mg/dL Normal 5 - 21 mg/dL FT [facility] Urea nitrogen/Creatinine [Mass ratio] 20 mg/mg Normal 10 - 20 FT Remisol CMPon 11-26-2022 Albumin [Mass/Vol] 3.7 g/dL Normal 3.3-5.[address] [facility] Comment on above: Performed By: #### 2 766305, 2443523, 79514258, 0387318 ####[facility] [address] [place] [address] Albumin/Globulin (S) [Mass conc ratio] 1.2 Normal 1.1-2.[address] [facility] Comment on above: Performed By: #### 2 974836, 4230119, 82215832, 8527220 ####[facility] [address] [place] [address] ALP [Catalytic activity/Vol] 38 Int._Unit/L Normal 21-[address] [facility] Comment on above: Performed By: #### 2 302375, 7117743, 70197803, 1798792 ####[facility] [address] [place] [address] ALT No additional P-5'-P [Catalytic activity/Vol] 11 Int._Unit/L Normal 6-[address] [facility] Comment on above: Performed By: #### 2 193873, 4592870, 30356699, 0193540 ####[facility] [address] [place] [address] Anion gap [Moles/Vol] 14 mmol/L Normal 6-16 [facility] Comment on above: Performed By: #### 2 021063, 3664746, 30558404, 5564656 ####[facility] [address] [place] [address] AST [Catalytic activity/Vol] 15 Int._Unit/L Normal 5-[address] [facility] Comment on above: Performed By: #### 2 057737, 8640095, 79754478, 6819774 ####[facility] [address] [place] [facility] [place] [address] Bilirubin [Mass/Vol] 1.0 mg/dL Normal 0.0-1.1 [facility] Comment on above: Performed By: #### 2 976087, 0164671, 58764782, 5190008 ####[facility] [address] [place] [address] Calcium [Mass/Vol] 9.2 mg/dL Normal 8.9-11.[address] [facility] Comment on above: Performed By: #### 2 481410, 9746961, 08476505, 8854333 ####[facility] [address] [place] [address] Chloride [Moles/Vol] 107 mmol/L Normal 101-111 [facility] Comment on above: Performed By: #### 2 704153, 2968212, 64690579, 7258943 ####[facility] [address] [place] [address] CO2 [Moles/Vol] 28 mmol/L Normal 21-31 [facility] Comment on above: Performed By: #### 2 215724, 1058644, 98999463, 2131353 ####[facility] [address] [place] [address] Creatinine [Mass/Vol] 0.9 mg/dL Normal 0.5-1.3 [facility] Comment on above: Performed By: #### 2 637416, 5462151, 89121750, 2802711 ####[facility] [address] [place] [address] Globulin (S) [Mass/Vol] 3.2 g/dL Normal 1.4-4.0 [facility] Comment on above: Performed By: #### 2 080219, 2133524, 04664289, 4347560 ####[facility] [address] [place] [address] Glucose [Mass/Vol] 95 mg/dL Normal 55-[address] [facility] Comment on above: Result Comment: If t his glucose result represents a fasting glucose, interpretation should refer to the following reference range: 55-99 mg/dL Performed By: #### 2 484258, 1581887, 81311380, 1863309 ####[facility] [address] [place] [address] Potassium [Moles/Vol] 4.2 mmol/L Normal 3.5-5.3 [facility] Comment on above: Performed By: #### 2 594070, 3198440, 87502951, 7110690 ####[facility] [address] [place] [address] Protein [Mass/Vol] 6.9 g/dL Normal 6.0-7.[address] [facility] Comment on above: Performed By: #### 2 167139, 5756931, 41311649, 6815440 ####[facility] [address] [place] [address] Sodium [Moles/Vol] 145 mmol/L Normal 135-[address] [facility] Comment on above: Performed By: #### 2 141655, 3393196, 71927584, 4770969 ####[facility] [address] [place] [address] Urea nitrogen [Mass/Vol] 18 mg/dL Normal 5-[address] [facility] Comment on above: Performed By: #### 2 851149, 5037027, 31741135, 5945686 ####[facility] [address] [place] [address] Urea nitrogen/Creatinine [Mass ratio] 20 No Units Normal 10-[address] [facility] Comment on above: Performed By: #### 2 380414, 4620899, 86906715, 2584661 ####[facility] [address] [place] [address] Consent for Treatmenton 07- Consent for Treatment [id number]#1.0 0CD:[address] [facility] Lipid Panelon 11-26-2022 Cholesterol [Mass/Vol] 112 mg/dL Low 120-200 Fi [facility] Comment on above: Performed By: #### 2 952809, 3236056, 62169156, 3870769 ####[facility] [address] [place] [address] Cholesterol in HDL [Mass/Vol] 49 mg/dL Invalid Interpretation Code [facility] Comment on above: Result Comment: HDL > or equal to 60 mg/dL: Low cardiovascular riskHDL < 40 mg/dL : High cardiovascular risk Performed By: #### 2 246892, 4192175, 45412059, 7415195 ####[facility] [address] [place] [address] Cholesterol in LDL [Mass/Vol] 42 mg/dL Normal <=[address] [facility] Comment on above: Performed By: #### 2 170888, 8552845, 18862571, 6625173 ####[facility] [address] [place] [address] Cholesterol in VLDL [Mass/Vol] 14 mg/dL Normal 7-[address] [facility] Comment on above: Performed By: #### 2 763015, 2987432, 08581041, 0218365 ####[facility] [address] [place] [address] Triglyceride [Mass/Vol] 69 mg/dL Normal <=149 F [facility] Comment on above: Performed By: #### 2 778709, 6538824, 06991837, 2953680 ####[facility] [address] [place] [address] Physician Orderon 11-26-2022 Physician Order [id number]#1. 00CD:[address] [facility] TSHon 11-26-2022 TSH Qn 2.07 m[IU]/L Normal 0.34-5.[address] [facility] Comment on above: Performed By: #### 2 362896, 0260542, 68251646, 7476645 ####[facility] [address] [place] [address] eGFRon 11-26-2022 GFR/1.73 sq M.predicted among non-blacks MDRD (S/P/Bld) [Vol rate/Area] 87 mL/min/1.73 m2 Normal >=[address] [facility] Comment on above: Order Comment: Order added by Discern Expert. Result Comment: Physiologist eanrest kidney disease could be indicated at eGFR's of less than 60 mL/min/1.73m2. Kidney failure is indicated at less than 15 mL/min/1.73m2. Performed By: #### 2 847339, 8497620, 75615639, 0022924 ####[facility] [address] [place] [address] Discharge Instructionson Discharge Instructions [id number]#1.0 0CD:[address] [facility] Transfer Documentson 023 Transfer Documents [id number]#1.0 0CD:[address] [facility] Capillary Glucose POCon Glucose [Mass/Vol] 166 mg/dL High 55-[address] [facility] Comment on above: Result Comment: Gareth guerrero RN/ Performed By: #### 2 77433561 ####[facility] [address] [place] [address] Glucose [Mass/Vol] 119 mg/dL High 55-[address] [facility] Comment on above: Result Comment: Repe at Test Performed By: #### 2 04711966 ####[facility] [address] [place] [address] Discharge Note-Nursingon Discharge Note-Nursing Normal Fi [facility] [id number] 09-28-2022 HbA1c (Bld) [Mass fraction] 6.4 % High <=5.[address] [facility] Comment on above: Order Comment: IF UN ABLE TO ADD TO ED LABS Performed By: #### 2 657558, 604223758 ####[facility] [address] [place] [address] Inpatient Clinical Summaryon 09-28-2022 Inpatient Clinical Summary Normal [facility] Inpatient Patient Summaryon 09-28-2022 Inpatient Patient Summary Normal [facility] Inpatient Patient Summary Normal [facility] Interdisciplinary Note - Santosh e Manageron 09-28-2022 Interdisciplinary Note - Chinchilla Machine Operator Normal [facility] Comment on above: Result Comment: Elec tronically Signed By: Jose HAYDEN, Norma\.br\Date and Time Signed: 09/28/22 15:54 EDT Monitor Recordon 09-28-2022 Monitor Record [id number]#1. 00CD:[address] [facility] Capillary Glucose POCon Glucose [Mass/Vol] 192 mg/dL High 55-[address] [facility] Comment on above: Result Comment: Gareth GARDINER Performed By: #### 2 00560956 ####[facility] [address] [place] [address] Glucose [Mass/Vol] 130 mg/dL High 55-[address] [facility] Comment on above: Result Comment: No C overage Given Performed By: #### 2 94766477 ####[facility] [address] [place] [address] Glucose [Mass/Vol] 202 mg/dL High 55-[address] [facility] Comment on above: Result Comment: Gareth GARDINER Performed By: #### 2 39657961 ####[facility] [address] [place] [address] Glucose [Mass/Vol] 89 mg/dL Normal 55-[address] [facility] Comment on above: Result Comment: Gareth GARDINER Performed By: #### 2 95288232 ####[facility] [address] [place] [address] Insurance Correspondence Off iceon 09-27-2022 Insurance Correspondence Office [id number]#1. 00CD:[address] [facility] Interdisciplinary Note - Santosh e Manageron 09-27-2022 Interdisciplinary Note - Chinchilla Machine Operator Normal [facility] [...] needs anticipated upon d/c home. AM-PAC Normal [facility] Lyteson 09-27-2022 Anion gap [Moles/Vol] 9 mmol/L Normal 6-16 [facility] Comment on above: Performed By: #### 2 971763, 874039575 ####[facility] [address] [place] [address] Chloride [Moles/Vol] 105 mmol/L Normal 101-111 [facility] Comment on above: Performed By: #### 2 302328, 934444658 ####[facility] [address] [place] [address] CO2 [Moles/Vol] 26 mmol/L Normal 21-31 [facility] Comment on above: Performed By: #### 2 172037, 758141972 ####[facility] [address] [place] [address] Potassium [Moles/Vol] 4.2 mmol/L Normal 3.5-5.3 [facility] Comment on above: Performed By: #### 2 490428, 678240753 ####[facility] [address] [place] [address] Sodium [Moles/Vol] 136 mmol/L Normal 135-[address] [facility] Comment on above: Performed By: #### 2 312316, 484255350 ####[facility] [address] [place] [address] Monitor Recordon 09-27-2022 Monitor Record [id number]#1. 00CD:[address] [facility] Monitor Record [id number]#1. 00CD:[address] [facility] Progress Note-Nurseon 2022 Progress Note-Nurse Normal Fishe r [facility] Progress Note-Physicianon Progress Note-Physician Normal F [facility] Comment on above: Result Comment: Elec tronically Signed By: Adeline COLEMAN\.br\Date and Time Signed: 09/27/22 15:34 EDT\.br\Electronically Co-Signed By: Adeline COLEMAN\.br\Date and Time Co-Signed: 09/27/22 15:37 EDT\.br\Electronically Co-Signed By: Rei POTTS, Ganesh Pressley\.br\Date and Time Co-Signed: 09/27/22 18:58 EDT Auto Diffon 09-26-2022 Basophils/100 WBC (Bld) 0.5 % Normal 0.0-2.0 [facility] Comment on above: Order Comment: Order Added by Discern Expert. Performed By: #### 1 2311396, 8307875, 5763124, 1956184 ####[facility] [address] [place] [address] Basophils/Leukocytes Auto (Bld) [Pure # fraction] 0.0 E9/L Normal 0.0-0.[address] [facility] Comment on above: Order Comment: Order Added by Discern Expert. Performed By: #### 1 8026367, 2523472, 0042091, 4736220 ####[facility] [address] [place] [address] Eosinophils/100 WBC (Bld) 3.3 % Normal 0.0-8.[address] [facility] Comment on above: Order Comment: Order Added by Discern Expert. Performed By: #### 1 3318491, 9634632, 6124864, 0930391 ####[place] [address] [place] [address] Eosinophils/Leukocytes Auto (Bld) [Pure # fraction] 0.3 E9/L Normal 0.0-0.[address] [facility] Comment on above: Order Comment: Order Added by Bethany Expert. Performed By: #### 1 1562571, 7896846, 8519157, 9926926 ####[place] [address] [place] [address] Lymphocytes/100 WBC (Bld) 9.5 % Low 14.0-50.[address] [facility] Comment on above: Order Comment: Order Added by Bethany Expert. Performed By: #### 1 4793750, 1612137, 7302768, 1423259 ####[address] [address] Lymphocytes/Leukocytes Auto (Bld) [Pure # fraction] 0.8 E9/L Low 1.0-4.[address] [facility] Comment on above: Order Comment: Order Added by Bethany Expert. Performed By: #### 1 2680433, 6183275, 9858097, 5652196 ####[address] [address] Monocytes/100 WBC (Bld) 7.2 % Normal 4.0-14.0 [facility] Comment on above: Order Comment: Order Added by Bethany Expert. Performed By: #### 1 3946369, 1017662, 2336755, 6920824 ####[place] [address] [place] [address] Monocytes/Leukocytes Auto (Bld) [Pure # fraction] 0.6 E9/L Normal 0.2-1.[address] [facility] Comment on above: Order Comment: Order Added by Bethany Expert. Performed By: #### 1 8405640, 4420441, 5369385, 0493905 ####[address] [address] Neutrophils/100 WBC (Bld) 79.5 % High 36.0-75.[address] [facility] Comment on above: Order Comment: Order Added by Discern Expert. Performed By: #### 1 3560174, 9977873, 4124160, 9830463 ####[facility] [address] [place] [address] Neutrophils/Leukocytes Auto (Bld) [Pure # fraction] 6.7 E9/L Normal 2.0-7.[address] [facility] Comment on above: Order Comment: Order Added by Discern Expert. Performed By: #### 1 1727047, 2234326, 0605985, 7441510 ####[facility] [address] [place] [address] BMPon 09-26-2022 Creatinine [Mass/Vol] 1.0 mg/dL Normal 0.5-1.3 [facility] Comment on above: Performed By: #### 1 7682374, 4647029, 9181278, 4361505 ####[facility] [address] [place] [address] Urea nitrogen [Mass/Vol] 25 mg/dL High 5-[address] [facility] Comment on above: Performed By: #### 1 7453056, 9860649, 6451176, 4998998 ####[facility] [address] [place] [address] Urea nitrogen/Creatinine [Mass ratio] 25 No Units High 10-[address] [facility] Comment on above: Performed By: #### 1 6749783, 1382401, 4820416, 6258668 ####[facility] [address] [place] [address] Anion gap [Moles/Vol] 10 mmol/L Normal 6-16 [facility] Comment on above: Performed By: #### 1 5888609, 5615736, 9213894, 7438308 ####[facility] [address] [place] [address] Calcium [Mass/Vol] 8.9 mg/dL Normal 8.9-11.[address] [facility] Comment on above: Performed By: #### 1 9626813, 0873009, 4300914, 4382747 ####[facility] [address] [place] [address] Chloride [Moles/Vol] 101 mmol/L Normal 101-111 [facility] Comment on above: Performed By: #### 1 4000622, 2183001, 1947119, 0321295 ####[facility] [address] [place] [address] CO2 [Moles/Vol] 26 mmol/L Normal 21-31 [facility] Comment on above: Performed By: #### 1 2501169, 2364150, 1597310, 2003580 ####[facility] [address] [place] [address] Glucose [Mass/Vol] 112 mg/dL Normal 55-[address] [facility] Comment on above: Result Comment: If t his glucose result represents a fasting glucose, interpretation should refer to the following reference range: 55-99 mg/dL Performed By: #### 1 9265111, 9992857, 4875303, 6883878 ####[facility] [address] [place] [address] Potassium [Moles/Vol] 4.1 mmol/L Normal 3.5-5.3 [facility] Comment on above: Performed By: #### 1 6931561, 8178000, 7981797, 9173866 ####[facility] [address] [place] [address] Sodium [Moles/Vol] 133 mmol/L Low 135-[address] [facility] Comment on above: Performed By: #### 1 3293161, 6984770, 7078414, 6941195 ####[facility] [address] [place] [address] CBC w/ Auto Diffon 3 Erythrocyte distribution width (RBC) [Ratio] 14.6 % High 10.9-14.[address] [facility] Comment on above: Performed By: #### 1 [id number], [id number], [id number], [id number] ####[facility] [address] [place] [address] Hematocrit (Bld) [Volume fraction] 37.6 % Low 37.7-49.[address] [facility] Comment on above: Performed By: #### 1 [id number], [id number], [id number], [id number] ####[address] [address] Hemoglobin (Bld) [Mass/Vol] 12.5 g/dL Low 13.5-17.[address] [facility] Comment on above: Performed By: #### 1 [id number], 8863679, 2913571, [id number] ####[place] [id number] MCH (RBC) [Entitic mass] 28.5 pg Normal 27.0-34.[address] [facility] Comment on above: Performed By: #### 1 [id number], 2329989, 1860272, 7082954 ####[place] [address] MCHC (RBC) [Mass/Vol] 33.2 g/dL Normal 31.4-36.0 [facility] Comment on above: Performed By: #### 1 [id number], 3115597, 6148146, 7401368 ####[address] [address] MCV (RBC) [Entitic vol] 85.8 fL Normal 80.0-100.0 [facility] Comment on above: Performed By: #### 1 [id number], 4719378, 8739627, 6044521 ####[address] [address] Platelet mean volume (Bld) [Entitic vol] 10.3 fL Normal 6.4-10.[address] [facility] Comment on above: Performed By: #### 1 8957074, 2399106, 1063205, 2964718 ####[address] [address] Platelets (Bld) [#/Vol] 164.0 E9/L Normal 150.0-500.[address] [facility] Comment on above: Performed By: #### 1 [id number], 6710383, 1375003, 5584353 ####[facility] [address] [place] [address] RBC (Bld) [#/Vol] 4.4 E12/L Normal 4.3-5.[address] [facility] Comment on above: Performed By: #### 1 7807870, 4075213, 6766699, 2372257 ####[facility] [address] [place] [address] WBC corrected for nucl RBC Auto (Bld) [#/Vol] 8.4 E9/L Normal 4.0-11.0 [facility] Comment on above: Performed By: #### 1 [id number], 1126375, 1305032, 1032245 ####[facility] [address] [place] [address] Capillary Glucose POCon Glucose [Mass/Vol] 161 mg/dL High 55-[address] [facility] Comment on above: Result Comment: Gareth guerrero RN/ Performed By: #### 2 [id number] ####[facility] [address] [place] [address] Consent for Treatmenton Consent for Treatment [id number] [id number] [facility] ED Clinical Summaryon 2022 ED Clinical Summary Normal [facility] ED Note-Physicianon 09-27-19 ED Note-Physician Normal [facility] Comment on above: Result Comment: Elec tronically Signed By: Shane Pan DO\.br\Date and Time Signed: 09/26/22 16:06 EDT ED Patient Education Noteon 09-26-2022 ED Patient Education Note Normal [facility] ED Patient Summaryon 023 ED Patient Summary Normal [facility] EMS Documentationon 09-27-19 EMS Documentation Normal [facility] EMS Documentation Normal [facility] Pre-Arrival Noteon 3 Pre-Arrival Note Normal [facility] UA With Cult Reflexon 2022 Bilirubin Ql (U) Negative Normal Negative [facility] Comment on above: Order Comment: can s traight cath if needed. Performed By: #### 1 [id number] ####[facility] [address] [place] [address] Clarity (U) CLEAR Normal Clear [facility] Comment on above: Order Comment: can s traight cath if needed. Performed By: #### 1 [id number] ####[facility] [address] [place] [address] Color (U) YELLOW Normal Yellow [facility] Comment on above: Order Comment: can s traight cath if needed. Performed By: #### 1 [id number] ####[facility] [address] [place] [address] Epithelial cells.squamous LM.HPF (Urine sed) [#/Area] 0-2 Normal 0-2 [facility] Comment on above: Order Comment: can s traight cath if needed. Performed By: #### 1 [id number] ####[facility] [address] [place] [address] Glucose Test strip (U) [Mass/Vol] Negative Normal Negative [facility] Comment on above: Order Comment: can s traight cath if needed. Performed By: #### 1 [id number] ####[facility] [address] [place] [address] Hemoglobin Ql (U) Negative Normal Negative [facility] Comment on above: Order Comment: can s traight cath if needed. Performed By: #### 1 [id number] ####[facility] [address] [place] [address] Ketones (U) [Mass/Vol] Negative Normal Negative [facility] Comment on above: Order Comment: can s traight cath if needed. Performed By: #### 1 [id number] ####[facility] [address] [place] [address] [place].plasma/[place].R BC (Bld) [Mass ratio] 0-3 Normal 0-3 [facility] Comment on above: Order Comment: can s traight cath if needed. Performed By: #### 1 [id number] ####[facility] [address] [place] [address] Nitrite Ql (U) Negative Normal Negative [facility] Comment on above: Order Comment: can s traight cath if needed. Performed By: #### 1 [id number] ####[address] [address] pH (U) 5.5 [pH] Invalid Interpretation Code 5.0-9.[address] [facility] Comment on above: Order Comment: can s traight cath if needed. Performed By: #### 1 [id number] ####[address] [address] Protein (U) [Mass/Vol] Negative Normal Negative [facility] Comment on above: Order Comment: can s traight cath if needed. Performed By: #### 1 [id number] ####[address] [address] Specific gravity (U) [Rel density] 1.025 Invalid Interpretation Code 1.005-1.[address] [facility] Comment on above: Order Comment: can s traight cath if needed. Performed By: #### 1 [id number] ####[address] [address] Type of Urine collection method Clean Catch Normal [facility] Comment on above: Order Comment: can s traight cath if needed. Performed By: #### 1 [id number] ####[facility] [address] [place] [address] Urobilinogen Qn (U) 1.0 {Lei'U}/dL Normal 0.0-1.[address] [facility] Comment on above: Order Comment: can s traight cath if needed. Performed By: #### 1 [id number] ####[place] [address] [place] [address] WBC Auto Ql (U) Negative Normal Negative [facility] Comment on above: Order Comment: can s traight cath if needed. Performed By: #### 1 [id number] ####[facility] [address] [place] [address] WBC LM.HPF (Urine sed) [#/Area] 0-5 Normal 0-[address] [facility] Comment on above: Order Comment: can s traight cath if needed. Performed By: #### 1 [id number] ####[facility] [address] [place] [address] XR Chest Single Viewon 09-26 XR Chest Single View Normal [facility] eGFRon 09-26-2022 GFR/1.73 sq M.predicted among non-blacks MDRD (S/P/Bld) [Vol rate/Area] 77 mL/min/1.73 m2 Normal >=[address] [facility] Comment on above: Order Comment: Order added by Discern Expert. Result Comment: Physiologist earnest kidney disease could be indicated at eGFR's of less than 60 mL/min/1.73m2. Kidney failure is indicated at less than 15 mL/min/1.73m2. Performed By: #### 1 [id number], [id number], 8011889, [id number] ####[facility] [address] [place] [address] Q - CULTURE,URINE,ROUTINEon 06-23-2021 CULTURE, URINE, ROUTINE SEE NOTE Normal [place] [facility] Comment on above: Order Comment: [facility] performed at: QPT, [facility], [address] [place] [address], [address] [place] [address], [phone], [employer] Contractor: Archie Sinha MD [facility] Collection Date/Time: [facility] Results Received Date/Time: [facility] Reported Date/Time: Result Comment: CULT URE, URINE, ROUTINE Micro Number: [id number] Test Status: Final Specimen Source: Urine Specimen Quality: Adequate Result: Mixed genital alvin isolated. These superficial bacteria are not indicative of a urinary tract infection. No further organism identification is warranted on this specimen. If clinically indicated, recollect clean-catch, mid-stream urine and transfer immediately to Urine Culture Transport Tube. Performed By: #### 6 [id number] #### [facility] Default [address] [place] [address] Q - CULTURE,URINE,ROUTINEon 05-05-2021 CULTURE, URINE, ROUTINE SEE NOTE Normal [place] [facility] Comment on above: Order Comment: [facility] performed at: [facility]PT, [facility], [address] [facility], [address] [place] [address], [id number], [employer]or: Archie Sinha MD [facility] Collection Date/Time: [id number] [facility] Results Received Date/Time: [id number] [facility] Reported Date/Time: [id number] Result Comment: CULT URE, URINE, ROUTINE Micro Number: [id number] Test Status: Final Specimen Source: Urine Specimen Quality: Adequate Result: Growth of mixed alvin was isolated, suggesting probable contamination. No further testing will be performed. If clinically indicated, recollection using a method to minimize contamination, with prompt transfer to Urine Culture Transport Tube, is recommended. Performed By: #### 6 [id number] #### [facility] [address] [place] [address] Vital Signs Date Time Vital Sign Value Performing Clinician Facility 01-24-2023 10:00-0400 Hourly Rounding Mbanefo OJUKWU [facility] 01-24-2023 10:00-0400 Promise to Return Mbanefo OJUKWU [facility] 01-24-2023 09:00-0400 Hourly Rounding Mbanefo OJUKWU [facility] 01-24-2023 09:00-0400 Promise to Return Mbanefo OJUKWU [facility] 01-24-2023 08:29-0400 Diastolic blood pressure 73 mm[Hg] Mbanefo OJUKWU [facility] 01-24-2023 08:29-0400 Systolic blood pressure 157 mm[Hg] Mbanefo OJUKWU [facility] 01-24-2023 08:27-0400 Blood Pressure Location Mbanefo OJUKWU [facility] 01-24-2023 08:27-0400 Body temperature 97.7 [degF] Mbanefo OJUKWU [facility] 01-24-2023 08:27-0400 Diastolic blood pressure 73 mm[Hg] Mbanefo OJUKWU [facility] 01-24-2023 08:27-0400 Heart rate 82 /min Mbanefo OJUKWU [facility] 01-24-2023 08:27-0400 Respiratory rate 16 /min Mbanefo OJUKWU [facility] 01-24-2023 08:27-0400 Systolic blood pressure 157 mm[Hg] Mbanefo OJUKWU [facility] 01-24-2023 08:00-0400 Hourly Rounding Mbanefo OJUKWU [facility] 01-24-2023 08:00-0400 Promise to Return Mbanefo OJUKWU [facility] 01-24-2023 00:05-0400 Blood Pressure Location Mbanefo OJUKWU [facility] 01-24-2023 00:05-0400 Body temperature 97.7 [degF] Mbanefo OJUKWU [facility] 01-24-2023 00:05-0400 Diastolic blood pressure 76 mm[Hg] Mbanefo OJUKWU [facility] 01-24-2023 00:05-0400 Heart rate 83 /min Mbanefo OJUKWU [facility] 01-24-2023 00:05-0400 Mean blood pressure 99 mm[Hg] Mbanefo OJUKWU [facility] 01-24-2023 00:05-0400 SaO2% (BldA) [Mass fraction] 97 % Mbanefo OJUKWU [facility] 01-24-2023 00:05-0400 Systolic blood pressure 144 mm[Hg] Mbanefo OJUKWU [facility] 01-23-2023 19:36-0400 Heart rate 81 /min Mbanefo OJUKWU [facility] 01-23-2023 19:36-0400 SaO2% (BldA) [Mass fraction] 96 % Mbanefo OJUKWU [facility] 01-23-2023 19:36-0400 Body temperature 97.34 [degF] Mbanefo OJUKWU [facility] 01-23-2023 19:34-0400 Mean blood pressure 83 mm[Hg] Mbanefo OJUKWU [facility] 01-23-2023 13:00-0400 Body temperature 98.06 [degF] Mbanefo OJUKWU [facility] 01-23-2023 06:55-0400 Blood Pressure Location Mbanefo OJUKWU [facility] 01-23-2023 06:55-0400 Mean blood pressure 89 mm[Hg] Mbanefo OJUKWU [facility] 01-23-2023 06:55-0400 Respiratory rate 16 /min Mbanefo OJUKWU [facility] 01-23-2023 06:55-0400 SaO2% (BldA) [Mass fraction] 93 % Mbanefo OJUKWU [facility] 01-22-2023 23:00-0400 Body temperature 97.88 [degF] Mbanefo OJUKWU [facility] 01-22-2023 23:00-0400 Mean blood pressure 82 mm[Hg] Mbanefo OJUKWU [facility] 01-22-2023 23:00-0400 Respiratory rate 18 /min Mbanefo OJUKWU [facility] 01-22-2023 18:37-0400 Body temperature 97.52 [degF] Mbanefo OJUKWU [facility] 01-22-2023 18:36-0400 Mean blood pressure 81 mm[Hg] Mbanefo OJUKWU [facility] 01-22-2023 16:09-0400 Mean blood pressure 81 mm[Hg] Mbanefo OJUKWU [facility] 01-22-2023 16:07-0400 Body temperature 97.52 [degF] Mbanefo OJUKWU [facility] 01-22-2023 04:50-0400 Heart rate 77 /min Mbanefo OJUKWU [facility] 01-21-2023 21:09-0400 Heart rate 85 /min Mbanefo OJUKWU [facility] 01-21-2023 15:11-0400 Heart rate 78 /min Mbanefo OJUKWU [facility] 12-20-2022 09:37-0400 Hourly Rounding Maycol TSERING [facility] 12-20-2022 09:37-0400 Promise to Return Maycol TSERING [facility] 12-20-2022 09:06-0400 Heart rate 65 /min Maycol TSERING [facility] 12-20-2022 09:06-0400 Respiratory rate 20 /min Maycol TSERING [facility] 12-20-2022 09:06-0400 SaO2% (BldA) [Mass fraction] 92 % Maycol TSERING [facility] 12-20-2022 08:56-0400 Heart rate 61 /min Maycol TSERING [facility] 12-20-2022 08:56-0400 Respiratory rate 20 /min Maycol TSERING [facility] 12-20-2022 08:56-0400 SaO2% (BldA) [Mass fraction] 92 % Maycol TSERING [facility] 12-20-2022 08:51-0400 Hourly Rounding Maycol TSERING [facility] 12-20-2022 08:51-0400 Promise to Return Maycol TSERING [facility] 12-20-2022 08:50-0400 Hourly Rounding Maycol TSERING [facility] 12-20-2022 08:31-0400 Promise to Return Maycol TSERING [facility] 12-20-2022 07:29-0400 Heart rate 60 /min Maycolyasmine ARRIOLASLIN [facility] 12-20-2022 07:29-0400 SaO2% (BldA) [Mass fraction] 93 % Maycol TSERING [facility] 12-20-2022 07:28-0400 Body temperature 98.06 [degF] Maycol TSERING [facility] 12-20-2022 07:28-0400 Diastolic blood pressure 69 mm[Hg] Maycol TSERING [facility] 12-20-2022 07:28-0400 Mean blood pressure 94 mm[Hg] Maycol TSERING [facility] 12-20-2022 07:28-0400 Systolic blood pressure 143 mm[Hg] Maycolyasmine ARRIOLASLIN [facility] 12-20-2022 03:25-0400 Respiratory rate 16 /min Maycolyasmine ARRIOLASLIN [facility] 12-20-2022 00:15-0400 Body temperature 97.7 [degF] Maycolyasmine ARRIOLASLIN [facility] 12-20-2022 00:15-0400 Diastolic blood pressure 56 mm[Hg] Maycol TSERING [facility] 12-20-2022 00:15-0400 Systolic blood pressure 135 mm[Hg] Maycol TSERING [facility] 12-19-2022 19:28-0400 Body temperature 98.42 [degF] Maycol TSERING [facility] 12-19-2022 19:27-0400 Diastolic blood pressure 69 mm[Hg] Maycol TSERING [facility] 12-19-2022 19:27-0400 Mean blood pressure 90 mm[Hg] Maycol TSERING [facility] 12-19-2022 19:27-0400 Systolic blood pressure 134 mm[Hg] Maycol TSERING [facility] 12-19-2022 16:26-0400 gluc 111 mg/dL Maycol TSERING [facility] 12-19-2022 16:06-0400 Mean blood pressure 95 mm[Hg] Maycol TSERING [facility] 12-19-2022 16:00-0400 Body temperature 98.06 [degF] Maycol TSERING [facility] 12-19-2022 11:58-0400 gluc 201 mg/dL Maycol TSERING [facility] 12-19-2022 08:18-0400 gluc 93 mg/dL Maycol TSERING [facility] 12-19-2022 08:00-0400 Body temperature 98.6 [degF] Maycol TSERING [facility] 12-18-2022 05:46-0400 Blood Pressure Location Maycol TSERING [facility] 12-18-2022 05:46-0400 Heart rate 67 /min Maycol TSERING [facility] 12-18-2022 05:00-0400 Body temperature 98.42 [degF] Maycol TSERING [facility] 12-18-2022 05:00-0400 Mean blood pressure 78 mm[Hg] Maycol TSERING [facility] 12-18-2022 05:00-0400 Respiratory rate 20 /min Maycol TSERING [facility] 12-18-2022 04:00-0400 Mean blood pressure 77 mm[Hg] Maycol TSERING [facility] 12-18-2022 04:00-0400 Respiratory rate 21 /min Maycol TSERING [facility] 12-18-2022 03:00-0400 Mean blood pressure 75 mm[Hg] Maycol TSERING [facility] 12-18-2022 03:00-0400 Respiratory rate 22 /min Maycol TSERING [facility] 12-18-2022 00:09-0400 Heart rate 85 /min Maycol TSERING [facility] 12-17-2022 23:54-0400 Heart rate 86 /min Maycol TSERING [facility] 12-02-2022 14:00-0400 SaO2% (BldA) [Mass fraction] 93 % Maycol TSERING [facility] 12-02-2022 13:00-0400 Hourly Rounding Maycol TSERING [facility] 12-02-2022 13:00-0400 Promise to Return Maycol TSERING [facility] 12-02-2022 12:58-0400 Heart rate 85 /min Maycol TSERING [facility] 12-02-2022 12:58-0400 SaO2% (BldA) [Mass fraction] 88 % Maycol TSERING [facility] 12-02-2022 12:58-0400 Body temperature 97.7 [degF] Maycolyasmine ARRIOLASLIN [facility] 12-02-2022 12:58-0400 Diastolic blood pressure 75 mm[Hg] Maycol TSERING [facility] 12-02-2022 12:58-0400 Mean blood pressure 102 mm[Hg] Maycol TSERING [facility] 12-02-2022 12:58-0400 Systolic blood pressure 157 mm[Hg] Maycol TSERING [facility] 12-02-2022 12:10-0400 Hourly Rounding Maycol TSERING [facility] 12-02-2022 12:10-0400 Promise to Return Maycol TSERING [facility] 12-02-2022 11:30-0400 Hourly Rounding Maycol TSERING [facility] 12-02-2022 11:30-0400 Promise to Return Maycol TSERING [facility] 12-02-2022 08:00-0400 Blood Pressure Location Maycol TSERING [facility] 12-02-2022 08:00-0400 Diastolic blood pressure 79 mm[Hg] Maycol TSERING [facility] 12-02-2022 08:00-0400 gluc 127 mg/dL Maycol TSERING [facility] 12-02-2022 08:00-0400 Heart rate 76 /min Maycol TSERING [facility] 12-02-2022 08:00-0400 Respiratory rate 20 /min Maycol TSERING [facility] 12-02-2022 08:00-0400 Systolic blood pressure 141 mm[Hg] Maycolyasmine ARRIOLASLIN [facility] 12-02-2022 07:46-0400 Heart rate 66 /min Maycol TSERING [facility] 12-02-2022 07:46-0400 Respiratory rate 18 /min Maycol TSERING [facility] 12-02-2022 07:40-0400 Respiratory rate 18 /min Maycol TSERING [facility] 12-01-2022 23:32-0400 Body temperature 97.16 [degF] Maycol TSREING [facility] 12-01-2022 23:32-0400 Diastolic blood pressure 77 mm[Hg] Maycolyasmine ARRIOLASLIN [facility] 12-01-2022 23:32-0400 Mean blood pressure 101 mm[Hg] Maycol TSERING [facility] 12-01-2022 23:32-0400 Systolic blood pressure 130 mm[Hg] Maycol TSERING [facility] 12-01-2022 20:01-0400 Body temperature 97.16 [degF] Maycol TSERING [facility] 12-01-2022 20:01-0400 Mean blood pressure 101 mm[Hg] Maycol TSERING [facility] 12-01-2022 12:07-0400 Body temperature 97.52 [degF] Maycol TSERING [facility] 12-01-2022 07:30-0400 Body temperature 96.98 [degF] Maycol TSERING [facility] 12-01-2022 06:00-0400 gluc 110 mg/dL Maycol TSERING [facility] 11-30-2022 23:32-0400 FIO2 30 % Maycol TSERING [facility] 11-30-2022 20:04-0400 Mean blood pressure 98 mm[Hg] Maycol TSERING [facility] 11-30-2022 04:38-0400 Mean blood pressure 91 mm[Hg] Maycol TSERING [facility] 11-29-2022 20:16-0400 FIO2 30 % Maycol TSERING [facility] 11-29-2022 19:00-0400 Blood Pressure Location Maycol TSERING [facility] 11-29-2022 08:10-0400 FIO2 30 % Maycol TSERING [facility] 11-29-2022 04:08-0400 gluc 107 mg/dL Maycol TSERING [facility] 11-29-2022 04:08-0400 Mean blood pressure 80 mm[Hg] Maycol TSERING [facility] 11-29-2022 00:16-0400 Heart rate 48 /min Maycol TSERING [facility] 11-28-2022 22:55-0400 Respiratory rate 19 /min Maycol TSERING [facility] 11-28-2022 21:45-0400 Respiratory rate 18 /min Maycol TSERING [facility] 11-28-2022 20:45-0400 Respiratory rate 22 /min Maycol TSERING [facility] 11-28-2022 18:55-0400 SaO2% (BldA) [Mass fraction] 95.4 % Maycol CAGLE [facility] Resp Auto SS 11-28-2022 17:13-0400 Heart rate 59 /min Maycol CAGLE [facility] 09-07-2022 01:10-0400 Diastolic blood pressure 53 mm[Hg] [facility] 09-07-2022 01:10-0400 Heart rate 70 /min [facility] 09-07-2022 01:10-0400 SaO2% (BldA) [Mass fraction] 96 % [facility] 09-07-2022 01:10-0400 Systolic blood pressure 135 mm[Hg] [facility] Encounters Encounter Date Encounter Type Care Provider Facility Start: 03-22-2024 End: 03-22-2024 [facility] Start: 03-21-2024 End: 03-21-2024 Telephone encounter Cortney [...] Start: 01-21-2024 End: 01-21-2024 ambulatory SHAWN ALEGRIA [facility] Start: 01-15-2024 Evaluation and management of inpatient HAYLEY [facility] Start: 01-14-2024 Evaluation and management of inpatient HAYLEY [facility] Start: 01-12-2024 Evaluation and management of inpatient ARIC MIRZA [facility] Start: 01-11-2024 Evaluation and management of inpatient DONNIE [facility] Start: 01-10-2024 [facility] Start: 01-10-2024 Evaluation [facility] management [facility] Start: 01-09-2024 Evaluation and management of inpatient [facility] Start: 01-09-2024 End: 01-09-2024 ambulatory UNKNOWN PROVIDER Facility:[facility] Start: 01-09-2024 End: 01-16-2024 Evaluation and management of inpatient YESENIA HUGHESBETH [facility] Start: 01-04-2024 End: 01-17-2024 Emergency department patient visit [facility] Start: 02-01-2023 ambulatory Robin Garcia acility:[facility] Start: 01-21-2023 End: 01-24-2023 Evaluation and management of inpatient [place] Facility:[facility] [place] [facility] Start: 01-21-2023 End: 01-24-2023 Evaluation and management of inpatient Johnnieshahnaz OJUKWU [facility] Start: 01-15-2023 End: 01-16-2023 ambulatory Donta NOONAN Facility:CD:[id number] Start: 01-15-2023 End: 01-15-2023 Off-Site [facility] Start: 12-22-2022 End: 12-23-2022 ambulatory Donta NOONAN Facility:CD:[id number] Start: 12-22-2022 End: 12-22-2022 [facility]-Site [facility] Start: 12-18-2022 End: 12-20-2022 Evaluation and management of inpatient Maycol A TSERING Facility[place] [place] Start: 12-17-2022 End: 12-20-2022 Evaluation and management of inpatient Maycol A TSERING [facility] Start: 12-14-2022 End: 01-16-2023 ambulatory Donta NOONAN Facility:CD:[id number] Start: 12-14-2022 End: 01-16-2023 [facility] Start: 12-11-2022 ambulatory Donta NOONAN Facilit y:[facility] Start: 12-03-2022 End: 12-03-2022 Off-Site [facility] Start: 12-03-2022 End: 12-04-2022 ambulatory Donta NOONAN Facility:CD:[id number] Start: 12-02-2022 End: 01-16-2023 ambulatory Donta ALMENA Facility:[facility] [place] Start: 11-30-2022 ambulatory Facility:[id number] Start: 11-30-2022 ambulatory Facility:[id number] Start: 11-29-2022 ambulatory Facility:[id number] Start: 11-29-2022 End: 12-02-2022 Evaluation and management of inpatient Maycol A TSERING Facility:[facility] [place] Start: 11-28-2022 End: 12-02-2022 Evaluation and management of inpatient Maycol A TSERING [facility] Start: 11-26-2022 End: 11-27-2022 ambulatory Bienvenido Barroso Facility:[facility] [place] Start: 11-26-2022 End: 11-26-2022 Patient encounter procedure [facility] Start: 09-26-2022 End: 09-28-2022 ambulatory Ganesh Minaya Facility:[facility] [place] Start: 2022 End: 2022 ambulatory [facility] Emergenc y Triage, Treat and Transport Start: 2022 End: 2022 Emergency department patient visit [facility] Emergency Triage, Treat and Transport Comment [...] screening for protein Diabetes: Urine Protein Screening [facility] Start: 01-23-2024 Influenza vaccination Influenza Vacc ine (#1) [facility] Start: 01-02-2023 Hemoglobin A1c measurement Diabetes: Hemoglobin A1C [facility] Start: 10-15-2022 Medicare Annual Well ness (AWV) Medicare Annual Wellness (AWV) [facility] Start: 09-21-2022 Annual Wellness Visi t (G0439) Annual Wellness Visit (G0439) [facility] Start: 05-14-2018 Pneumococcal vaccination Pneum ococcal [...] 1955 Glaucoma screening Diabetes: R etinopathy Screening [facility] BLOOD CULTURE 1 BLOOD CULTURE 1 Lab Routine 03/07/2024 1:08 PM EDT [facility] BLOOD CULTURE 2 BLOOD CULTURE 2 Lab Routine 03/07/2024 1:28 PM EDT [facility] Immunizations Immunization Date Immunization Notes Care Provider [facility] 03-12-2022 SARS-CoV-2 (COVID-19 ) [id number] Donta NOONAN [facility] 02-04-2022 influenza virus vaccine, unspecified formulation Rebecca Alcala MD Work Phone: [facility] 03-17-2021 Influenza, injectabl e, high-dose seasonal, quadrivalent, 0.7 mL, preservative free (AQX=863) [facility] 07-15-2020 Pfizer (12+ yrs) SARS-COV-2 (COVID-19) vaccine, mRNA, spike protein, LNP, pres. free, 30 mcg/0.3mL dose (QPR=006) [facility] 06-26-2020 Pfizer (12+ yrs) SARS-COV-2 (COVID-19) vaccine, mRNA, spike protein, LNP, pres. free, 30 mcg/0.3mL dose (FYX=720) [facility] 06-23-2019 influenza, high dose seasonal, preservative-free [facility] 05-14-2017 influenza, high dose seasonal, preservative-free [facility] 05-14-2017 pneumococcal conjuga te vaccine, 13 valent [facility] 04-04-2014 influenza, injectabl e, madin cee canine kidney, preservative free [facility] NEGATED: Highlighted row has not occurred!06-15-2014 pneumococcal polysaccharide vaccine, 23 valent [facility] Comment on above: Result Note: pt had vaccine last year per Payers Date Payer Category Payer Medicaid [id number] 2023 Self-pay 2022 Unknown [id number] 2022 Medicare [employer] D [employer] [id number] 2022-Present [address] [place] [address] Medicare [id number] 2022 Unknown [id number] 2022 Medicare (Managed Care) [employer] [id number] 2022 Unknown [employer] D [employer] [id number] 2022-Present [address] [place] [address] [id number]. [id number] 1944 Unknown [id number] 2.16.840.1.328691.3.579.2. 356 1944 Unknown [id number] 2.16.840.1.168036.3.579.2. 356 1944 Unknown [id number] 2.16.840.1.126618.3.579.2. 356 1944 Unknown [id number] 2..840.1.539780.3.579.2. 72 1944 Unknown [id number] 2.16.840.1.150079.3.579.2. 1944 Unknown [id number] 2..840.1.035570.3.579.2. 1944 Unknown [id number] 2..840.1.150220.3.579.2. 1944 Unknown [id number] 2.840.1.604362.3.579.2. 1944 Unknown [id number] 2..840.1.277081.3.579.2. 1944 Unknown [id number] 2.840.1.716391.3.579.2 1944 Unknown [id number] 2.840.1.467932.3.579.2. 1944 Unknown [id number] .840.1.011594.3.579.2. 1944 Unknown [id number] 2.840.1.865695.3.579.2. 1944 Unknown [id number] .840.1.281201.3.579.2 1944 Unknown [id number] 2..840.1.495770.3.579.2. 1944 Unknown [id number] 2.840.1.251705.3.579.2. 73 1945 Unknown [id number] 2.840.1.552103.3.579.2. 1286 Social History Date Type Detail Facility Tobacco smoking stat [facility] Tobacco smoking consumption unknown [facility] Start: 1945 Sex Assigned At Not on file [facility] Start: 04-24-2021 End: 10-19-2022 Tobacco smoking status Ex-smoker (finding) [facility] Start: 11-25-2022 Sex Assigned At Male F [facility] End: 05-24-1959 History of tobacco use Current smoker [facility] End: 05-24-1959 History of tobacco use Cigarette Smoker [facility] Start: 11-25-2022 Alcoholic beverage intake Lifetime non-drinker (finding) [facility] Start: 11-25-2022 History of Social function [facility] Start: 10-19-2022 Alcohol Comment Caffeine: 1-2 cups/day, occasional soda [facility] Medical Equipment Procedure Code Equipment Code Equipment Origin al Text Equipment Identifier Dates 1 each by Other route if needed (3x as needed daily). Use as instructed [id number] Start: 10-21-2022 Functional Status Date Assessment Result Facility 01-21-2023 Functional Status No [facility] 01-21-2023 Functional Status [facility] 12-18-2022 Functional Status N/A [facility] 12-17-2022 Functional Status [facility] 11-29-2022 Functional Status N/A [facility] 11-28-2022 Functional Status [facility] Clinical Notes 09-07-2022 to 03-22-2024 Telephone Encounter - Cortney Nicholson NP - 03/21/2024 9:22 AM EDTTelephone Encounter - Cortney Nicholson NP - 03/21/2024 9:22 AM EDT Note Date & Type Note Facility 03-22-2024 Note DC Cardiology - [facility] Subjective Clyde Humphrey is a 78 y.o. year old male patient being seen for heart block (S/p pacemaker insertion in Dec 2023) and Pacemaker Check (Per [employer] rep - He's had 12.7 hours of afib since Dec 2023, with a burden of < 1%. 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 He did [...] to severe bradycardia. He has been in fci. He is on oxygen at 4 L/min [...] Diagnosis Date COPD (chronic obstructive pulmonary disease) ([facility]) Seizure ([facility]) Sleep apnea No past surgical history on [...] or gallops. RESPIRAT (more content not included)... [facility] 03-21-2024 Telephone encounter Note Rx for ativan is sent for this [facility] patient today. #90 tabs. [facility] 03-21-2024 Miscellaneous Notes Rx for ativan is sent for this [facility] patient today. #90 tabs. documented in this encounter [facility] 01-21-2024 Note Patient underwent [employer] pacemaker implantation due to third-degree AV [...] follow-up appointment with cardiology in 2 months [facility] 01-16-2024 Note DUAL CHAMBER PACEMAK ER IMPLANT PROCEDURE NOTE DATE OF PROCEDURE: 01/10/24 PERFORMING PHYSICIAN: Dr. Reno Welch CONSENT: Patient LOCATION: EP Lab PROCEDURE PERFORMED: 1. Implantation of pacemaker ([employer]) 2. Ultrasound guided venous access INDICATIONS: [...] 78-year-old man who is transferred from the [facility] for complete heart block. This [facility] at [facility] when the nurses noted [...] using modified seldinger technique using a 5 Uruguayan micro-puncture needle on two occasions and 0.35 [...] for the device above the muscle. 6 [place] Safesheaths were placed over the wire. An active fixation [employer] pacing lead was then delivered through the 6Fsheath to the right ventricle. After confirmation of lead position on orthogonal views (GOMEZ and MONGOLIAN) to confirm septal position, the screw was activated, and the lead was placed in the right ventricular mid cavity towards the septum. After confirmation of good sensing parameters, injury pattern and pacing thresholds, 10V pacing was done and no diaphragmatic stimulation was noted. It was then secured in the pocket using three 1-0 Silk sutures. Then an active fixation [employer] lead was delivered through the 6Fsheath to the right atrial appendage. After confirmation of lead position on orthogonal views (GOMEZ and MONGOLIAN), the screw was activated. Good sensing parameters, [...] any concerns. Reno Welch MD Cardiac Electrophysiology [facility] 01-16-2024 Note Physical Therapy Physical Therapy Patient Name: Clyde Humphrey Today's Date: 01/16/2024 Admit Date: 01/09/2024 Time: 8:55 AM Attempted PT treatment today however RN reports patient being agitated at this time, will check back later as able. No charges associated with this encounter. [facility] 01-16-2024 Note discharge planning: to [facility] 0841 Insurance Approval Letter received for Patient to discharge to [facility]; Discharge Order in place; notice of insurance approval and discharge order sent to SNF, via [employer] system, with request to confirm they have a bed available for Patient to return to them today (awaiting reply) 1129 communication received from [facility], via [employer] system: Yes please call report to [phone] station 2. Please FAX [place] med list to [phone] as I am not in the building today ^bedside RN and Ruc[facility] notified of bed available today 1135 Patient resting in bed, typewriters functional tester unable to wake ([phone]) PC to Patient's spouse, to notify of discharge order and bed available and transport arrangements; no answer; vm left with contact information and request for return call 1152 AVS faxed to [facility] [phone] ([phone]) PC to Patient's spouse, to notify of discharge order and bed available and transport arrangements; no answer; second voicemail not left ([phone]) PC to Patient's daughter Amy, to notify of discharge order and transport time; Amy stating Patient's spouse lives at [facility] as well, so would not be answering her phone; typewriters functional tester notified Amy of 1:30p pickup time for transportation to return to [facility] 1206 AVS and transport time sent to [facility] via [employer] system Discharge Transportation Packet placed with Patient's physical charte Transportation scheduled for 1:30p pickup Nurse call report to [facility] [phone] Station 2 ^bedside RN, RucCC notified [facility] 01-16-2024 Note Hospital Medicine Daily Progress Note - 01/16/2024 7:25 AM; Room: [address] [place] [address] Admission: 01/09/2024 1:24 AM; Length of stay: 7 days THE HOSPITALIST TEAM PREFERS TO USE [employer] CHAT FOR COMMUNICATION 7AM-7PM. IF I DO NOT RESPOND WITHIN 15 MINUTES, PLEASE PAGE ME/CALL THROUGH THE CONSTRUCTION DIRECTOR. FROM 7PM-7AM, PLEASE PAGE [phone](COVR) Code Status: Full Code Barriers to Discharge: None Expected Discharge Date: 01/15 Discharge Destination: custodial facility Overview Patient is seen for evaluation [...] , FREET4 , CORTISOL , FEV1 , MPG6BZF , DLCO , RVSP , HDL , LDL Lab Results Component Value Date [id number] 179 (L) 01/13/2024 IRON 37 (L) 01/13/2024 [...] Santiago MD. Discharge Planning Expected Discharge Disposition: Senior Living Facility (03) PT Disc (more content not included)... [facility] 01-15-2024 Note Hospital Medicine Discharge Summary Final Discharge Diagnosis: Third degree heart block Admission Diagnosis: Heart block [I45.9] Hospital course: 78yoM with history of dementia, seizure disorder, COPD, hypertension who was admitted to [facility] on 01/08 for complete heart block. Patient initially presented to [facility] for multiple episodes of presyncope and heart rate was noted to be in 30s. Confirmed complete AV disassociation and the patient was transferred to [facility] for EP evaluation. He was initially sent [...] Admission: Cardiology and Trauma Dear Dr. MD Mac Albert is advised to follow up with you within 1-2 weeks. Items to follow up in ambulatory setting: Follow up with Cardiology 01/16 for PPM evaluation Follow-up with: Cardiology Scheduled appointments: Future Appointments Date Time Provider Department Center 01/17/2024 1:30 PM [facility] CV CLINIC DEVICE CHECK HVC CARD DC HeartVAS Your medication list START taking these [...] Medications These medications were sent to [facility] - [place], [place] - [address], [facility] [address] divalproex 500 mg EC tablet spironolactone 25 mg tablet Information about where to get these medications is not yet available Ask your nurse or doctor about these medications cyanocobalamin 1,000 mcg tablet doxycycline 100 mg capsule Clyde has No Known Allergies. Disposition: Senior Living Facility (03) Discharge Condition: Stable Code Status: [...] Lab Units 01/15/24 (more content not included)... [facility] 01-14-2024 Note 01/14/24 1300 Post Acute Info Authorization started for SNF () Facility name [facility] Facility When was authorization started? 01/13/24 What time was authorization started? 1038 Reference number for submission ([id number]) Determination Approved OTM staff notified Sherley Rivers When was authorization received? 01/14/24 What time was authorization received? 1302 When does authorization ? 01/21/24 How are we submitting authorization Website Portal What insurance are we submitting through ([employer]) Approved authorization for [facility], OTM notified. [facility] 01-14-2024 Note Hospital Medicine Daily Progress Note - 01/14/2024 11:18 AM; [facility] Admission: 01/09/2024 1:24 AM; Length of stay: 5 days THE HOSPITALIST TEAM PREFERS TO USE [employer] CHAT FOR COMMUNICATION 7AM-7PM. IF I DO NOT RESPOND WITHIN 15 MINUTES, PLEASE PAGE ME/CALL THROUGH THE CONSTRUCTION DIRECTOR. FROM 7PM-7AM, PLEASE PAGE [phone](COVR) Code Status: Full Code Barriers to Discharge: Precert Expected Discharge Date: 01/13 Discharge Destination: custodial facility Overview Patient is seen for evaluation [...] , FREET4 , CORTISOL , FEV1 , UTA3SGL , DLCO , RVSP , HDL , LDL Lab Results Component Value Date [id number] 179 (L) 01/13/2024 IRON 37 (L) 01/13/2024 TIBC 244 (L) 01/13/2024 Imaging Electrophysiology procedure Narrative: DUAL CHAMBER PACEMAKER IMPLANT PROCEDURE NOTE DATE OF PROCEDURE: 01/10/24 PERFORMING PHYSICIAN: Dr. Reno Welch CONSENT: Patient LOCATION: EP Lab PROCEDURE PERFORMED: 1. Implantation of pacemaker ([employer]) 2. Ultrasound guided venous access INDICATIONS: 1. 3rd degree AV block 2. Junctional bradycardia PROCEDURAL SEDATION: Versed and Fentanyl. Moderate sedation was administered by the sedation nurse under my supervision and noted in the (more content not included)... [facility] 01-14-2024 Note Occupational Therapy Occupational Therapy Treatment Patient Name: Clyde Humphrey : 1945 Today's Date: 01/14/2024 Problem List Patient Active Problem List Diagnosis Heart block Pain: Objective General Visit Information: OT Last Visit OT Received On: 01/14/24 General Subjective: RN reports pt is appropriate for session. On arrival pt [place] but use of writing communication for pt [...] transfers standing five minutes 01/12/24 02/09/24 -- [facility] 01-13-2024 Note Speech Combination Building Inspector ology Speech/Language Pathology Clinical Swallow Assessment Rx: [...] Called and spoke to Sierra RN at [facility] and she reported he always wears dentures and does not having swallowing issues prior to this admission at [facility]. Baseline Assessment Temperature Spikes Noted: Not applicable History of Intubation: No Behavior/Cognition: Alert, Cooperative (very hard of hearing due to not having his hearing aides in hospital) Dentition: Edentulous (per [facility], pt wears dentures, but they are not at hospital) Patient Positioning: Upright in bed Baseline Vocal Quality: Normal Volitional Swallow: Within Functional Limits Diet Level Prior to exam: Regular diet with thin liquid No family present for exam History of Present Illness Clyde Humphrey is a 78-year-old gentleman with past medical history significant for dementia has been transferred from [facility] due to high degree AV block. The patient is unable to answer questions appropriately due to his dementia so history was only taken by the signout received from [facility]. The patient was noted to have multiple episodes of presyncope over the last few days and today his heart rate was noted to be in 30s upon their initial evaluation. EKG showed a complete A-V dissociation after which thick reached out to [facility] cardiology for possible pacemaker placement. Due to significant bradycardia the patient is being transferred to [facility] ICU for close hemodynamic monitoring and management. [...] Medications: Crushed Recommendations Duration of Treatment: 15 [facility] 01-13-2024 Note 01/13/24 1038 Post Acute Info Authorization started for SNF (03) Facility name [facility] Facility When was authorization started? 01/13/24 What time was authorization started? 1038 Reference number for submission ([id number]) How are we submitting authorization Website Portal What insurance are we submitting through ([employer]) Submitted precert request for [facility], OTM to follow. [facility] 01-13-2024 Note Attempted to call Wi pee Dooley to confirm return to [facility] as well as get consent to start pre-cert with no answer and going to voicemail. Called listed aidan Parks [phone] who answered and stated that Soumya has stage 4 cancer and is also currently at [facility] and also cited that her cognition has declined substantially. Aidan Parks also cited that she is pt's HCPOA. Obtained confirmation of intent to return and also to start the pre-cert to return to [facility]. Requested OTM to start pre-cert and updated AVS. UPDATE 11:05AM- [facility] confirmed that aidan Parks is an alternate HCPOA and also advised it would be better to contact her. [facility] 01-13-2024 Note Hospital Medicine Daily Progress Note - 01/13/2024 8:09 AM; Room: [address] [place] [address] Admission: 01/09/2024 1:24 AM; Length of stay: 4 days THE HOSPITALIST TEAM PREFERS TO USE [employer] CHAT FOR COMMUNICATION 7AM-7PM. IF I DO NOT RESPOND WITHIN 15 MINUTES, PLEASE PAGE ME/CALL THROUGH THE CONSTRUCTION DIRECTOR. FROM 7PM-7AM, PLEASE PAGE [phone](COVR) Code Status: Full Code Barriers to Discharge: Precert Expected Discharge Date: 01/13 Discharge Destination: custodial facility Overview Patient is seen for evaluation [...] , FREET4 , CORTISOL , FEV1 , ARO0VWH , DLCO , RVSP , HDL , LDL No results found for: [id number] , IRON , TIBC , C3 , [...] There are intracranial (more content not included)... [facility] 01-12-2024 Note Daughter, felipe Parks via phone concerning pt transfer to [facility] from MICU and pt status improvements/plan of care. [facility] 01-12-2024 Note Attestation signed by Cody Richardson MD at 01/12/2024 11:36 PM I reviewed the salient portions of the patient history. I have seen and examined the patient during rounds with the resident/fellow. I repeated the guajardo components of the exam. Agree with the noted assessment and plan. Cody Richardson MD [facility] Physicians Pulmonary and Critical Care Medicine Pulmonary Progress Note Patient - Clyde Humphrey Age - 78 y.o. - 1945 [facility] # - [id number] Date of Admission - 01/09/2024 1:24 AM HPI/Hospital Course Clyde Humphrey is a 78-year-old gentleman with past medical history significant for dementia has been transferred from [facility] due to high degree AV block. The patient is unable to answer questions appropriately due to his dementia so history was only taken by the signout received from [facility]. The patient was noted to have multiple episodes of presyncope over the last few days and today his heart rate was noted to be in 30s upon their initial evaluation. EKG showed a complete A-V dissociation after which thick reached out to [facility] cardiology for possible pacemaker placement. Due to significant bradycardia the patient is being transferred to [facility] ICU for close hemodynamic monitoring and management. [...] patient's raccoon eyes (more content not included)... [facility] 01-12-2024 Note Physical Therapy Physical Therapy Evaluation Patient Name: Clyde Humphrey : 1945 Today's Date: 01/12/2024 Patient is a 78 y/o male presenting from [facility] with heart block. Episodes of [...] Diagnosis Date COPD (chronic obstructive pulmonary disease) ([facility]) Seizure ([facility]) Sleep apnea No past surgical history on [...] time, Follows one step commands with repetition ([place] makes command following difficult) General Assessment General Assessment Hearing: Significantly [place] - best communication by writing Home Living Home Living Type of Home: care home Home Adaptive Equipment: Walker rolling, Wheelchair-power Prior Level of Function Prior Function Level of [place]: Needs assistance with ADLs, Needs assistance with [...] room: Total He (more content not included)... [facility] 01-12-2024 Note Occupational Therapy Occupational Therapy Evaluation Patient Name: Clyde Humphrey : 1945 Today's Date: 01/12/2024 Time In: 1015 Time Out: 1039 Clyde Humphrey is a 78-year-old gentleman with past medical history significant for dementia has been transferred from [facility] due to high degree AV block. PPM 01/10/24 General Subjective: friendly and cooperative but not a reliable historian, he is very [place] but able to read Patient Active Problem List Diagnosis Heart block Past Medical History: Diagnosis Date COPD (chronic obstructive pulmonary disease) ([facility]) Seizure ([facility]) Sleep apnea No past surgical history on [...] redirect Memory: Decreased short term memory, Decreased fdc memory Communication: Intact General Assessment General Assessment Hearing: (very [place]) Home Living Home Living Type of Home: care home Home Adaptive Equipment: Wheelchair-power Prior Level of Function Prior Function Level of [place]: Needs assistance with ADLs, Needs assistance with [...] Eating meals?: None (Independent) Total Score OT [facility]: 14 Assessment/Plan OT Assessment OT Impairments: Decreased ADL status, Decreased endurance, Decreased functional mobility 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 [facility] 01-12-2024 Note Phoned pt's to discuss DC plan to return to [facility]. [facility] is requesting precert to accept pt back under skilled. Await call back, Await PT/OT recommendations. [facility] 01-12-2024 Note Updates sent to [facility] 01-11-2024 Note Attestation signed by Cody Richardson MD at 01/11/2024 9:49 PM I reviewed the salient portions of the patient history. I have seen and examined the patient during rounds with the resident/fellow. I repeated the guajardo components of the exam. Agree with the noted assessment and plan. Cody Rcihardson MD [facility] Physicians Pulmonary and Critical Care Medicine Pulmonary Progress Note Patient - Clyde Humphrey Age - 78 y.o. - 1945 N - [id number] [facility] # - [id number] Date of Admission - 01/09/2024 1:24 AM HPI/Hospital Course Clyde Humphrey is a 78-year-old gentleman with past medical history significant for dementia has been transferred from [facility] due to high degree AV block. The patient is unable to answer questions appropriately due to his dementia so history was only taken by the signout received from [place]. The patient was noted to have multiple episodes of presyncope over the last few days and today his heart rate was noted to be in 30s upon their initial evaluation. EKG showed a complete A-V dissociation after which thick reached out to [facility] cardiology for possible pacemaker placement. Due to significant bradycardia the patient is being transferred to [facility] ICU for close hemodynamic monitoring and management. [...] Intake/Output Summary (Last 24 hours) at 01/11/2024 4984 Last data filed at 01/11/2024 1253 Gross [...] fall? Also requested (more content not included)... [facility] 01-11-2024 Note Problem: Depression Goal: LTG-Alleviate [...] goals for the shift include Stable hemodynamics [facility] 01-11-2024 Note Attestation signed by Guilherme Patrick [...] MD Cardiology Progress Note Subjective Subjective: S/p [employer] DC-PPM. No overnight events. Mentation appears [...] QT Interval 514 QTC CALCULATION(BAZETT) 439 P [place] -25 R-[place] -30 T Wave [place] -28 Impression Sinus tachycardia with complete heart [...] (TTE) complete Result Date: 01/10/2024 1 1 [facility] Heart Station [address] [place] [address] [phone] (fax) Echocardiogram-[facility] Name: CLYDE HUMPHREY Study Date: 01/10/2024 01:43 PM B/P: 107 mmHg/64 mmHg HR: 52 bpm Date of : 1945 Location: [facility] Height: 65 in. Age: 78 year(s) Patient Room: 3235 Weight: 218 lb. Gender: Male Patient Status: InPt BSA: 2.05 m2 Indication: Complete heart block, d (more content not included)... [facility] 01-10-2024 Note Attestation signed by Cody Richardson [...] 36 minutes. Cody Richardson MD [facility] Physicians Pulmonary and Critical Care Medicine Pulmonary Progress Note Patient - Clyde Humphrey Age - 78 y.o. - 1945 [facility] # - [id number] Date of Admission - 01/09/2024 1:24 AM HPI/Hospital Course Clyde Humphrey is a 78-year-old gentleman with past medical history significant for dementia has been transferred from [facility] due to high degree AV block. The patient is unable to answer questions appropriately due to his dementia so history was only taken by the signout received from [place]. The patient was noted to have multiple episodes of presyncope over the last few days and today his heart rate was noted to be in 30s upon their initial evaluation. EKG showed a complete A-V dissociation after which thick reached out to [facility] cardiology for possible pacemaker placement. Due to significant bradycardia the patient is being transferred to [facility] ICU for close hemodynamic monitoring and management. [...] shift. Patchy hypoattenuation (more content not included)... [facility] 01-10-2024 Note Consulted with notif ication that patient is from a fci. Has dementia. No family at bedside. Appears patient may be from [facility] - message left for spouse, Soumya. Preliminary referral made to [facility] to confirm. [facility] 01-10-2024 Note Problem: Depression Goal: LTG-Alleviate [...] goals for the shift include Stable hemodynamics [facility] 01-10-2024 Note Attestation signed by Guilherme Patrick [...] QT Interval 514 QTC CALCULATION(BAZETT) 439 P [place] -25 R-[place] -30 T Wave [place] -28 Impression Sinus tachycardia with complete heart [...] Maintain telemetry Optimize electrolytes Trang Eagle MD Staff Forester - PGY5 [facility] 01-09-2024 Note Attestation signed by Donnie Cavazos MD at 01/09/2024 1:28 PM I was present during the critical portion of the procedure and immediately available to assist Arterial line placement PATIENT: Clyde Humphrey DATE: 01/09/2024 PROCEDURE CONSTRUCTION DIRECTOR: Art Suh MD ATTENDING PHYSICIAN: Donnie Cavazos [...] PGY6 [facility] Pulmonary/Critical Care 01/09/2024 5:45 AM [facility] 01-24-2023 Evaluation + Plan note Extrac [...] When Contact Information Dharmesh POTTS, Bienvenido Chavira, [address] [place] [address]- Additional Instructions: Dementia, Wepx-ut-Osfo Extracted from: Title:APSO Note Author:New Johnson DO Gerry e:01/23/23 1. Generalized weakness (R53 .1: Weakness) IV fluids, trend BUN and creatinine PT/OT Currently awaiting pre-CERT for placement 2. Alzheimers disease (G30.9: Alzheimer's disease, unspecified) Continue Seroquel 3. CAD in [place] artery (I25.10: Atherosclerotic heart disease of [place] coronary artery without angina pectoris) Continue aspirin [...] Ordered: Initial Hospital Care/Day Moderate 55 Minutes 29340 Sbsq Hospital Care/Day Straight Fwd 25 Minutes 20083 2. Alzheimers disease (G30.9: Alzheimer's disease, unspecified) Continue Seroquel 3. CAD in [place] artery (I25.10: Atherosclerotic heart disease of [place] coronary artery without angina pectoris) Continue aspirin [...] (G30.9: Alzheimer's disease, unspecified) 3. CAD in [place] artery (I25.10: Atherosclerotic heart disease of [place] coronary artery without angina pectoris) 4. COPD [...] Ordered: Initial Hospital Care/Day Moderate 55 Minutes 27630 2. Alzheimers disease (G30.9: Alzheimer's disease, unspecified) Continue Seroquel 3. CAD in [place] artery (I25.10: Atherosclerotic heart disease of [place] coronary artery without angina pectoris) Continue aspirin [...] gait and building on physical strength. [facility]09-03-[address] John Medical CenterComment on above:Result Comment: Electronically Signed By: New Johnson DO\.br\Date and Time Signed: 01/24/23 09:57 [id number] Hospital Discharge instructions Patient Education 01/24/2023 09:54:03 Dementia, Yrma-lb-Jdcl Dementia Dementia is a condition that affects [...] Follow these instructions at home: Medicines Take rwuw-ows-tezuhhg and prescription medicines only as told by [...] find more information Alzheimer's Association: www.alz.org National [place] on Aging: www.susie.nih.gov/alzheimers World Health Organization: www.who.int [...] the National Suicide Prevention Lifeline at or 070 in the [place] This is open 24 hours a day. Text the Crisis Text Line at 174725. Summary Dementia often affects memory and thinking. [...] provider. Document Revised: 12/03/2021 Document Reviewed: 09/23/2020 [employer] Patient Education 2022 Scripted. Follow Up Care 01/21/2023 15:06:04 With:Dharmesh POTTS, Bienvenido Chavira, [facility] Address: [address] [place] [id number] When: Unknown [facility]08-31-[address] John Medical CenterComment on above:Result Comment: Electronically Signed By: New Johnson DO.br\Date and Time Signed: 01/21/23 17:53 [id number] Evaluation + Plan note Extracted from: Title:Discharge Note Author:MICHAEL POTTS, Jamir Gerry e:12/20/22 stable Discharge To, Anticipated II - Senior Living Unit Discharged to - [facility] SNF Discharge Diet(s): Calorie Controlled- 1800 Calorie Diet (12/20/22 09:46:00) Prescriptions alprazolam 0.5 mg Tab, 0.5 mg= 1 tab(s), Oral, Daily, PRN aspirin 81 mg Oral EC Tab, 81 mg= 1 tab(s), Oral, Daily Augmentin 875 mg oral tablet, 1 tab(s), Oral, q12hr ergocalciferol 50,000 intl units Cap, 32415 International_Unit= 1 cap(s), Oral, q7day furosemide 40 [...] BID With When Contact Information Bienvenido Dharmesh [address] [place], [place] [id number] (1) Additional Instructions: Call for followup appointment [...] ultimately benefit being only slightly on the primer expeditor and 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 Coronary artery disease (I25.10: Atherosclerotic heart disease of [place] coronary artery without angina pectoris) Patient had [...] recent hospitalization has been titrated at the [facility]. He was recently placed on Xanax, discontinue that at this time. Awaiting verification of meds from the [facility] 15. Encounter for deep [...] patient's RN it was advised that the [facility]ci was planning on sending a copy of [...] Pending * Legionella Antigen Urine 12/18/22 [facility]07-30-2023 NoteCRM entered the room to discuss dc planning. PCP, DME and insurance discussed. Patient is alert andinvolved in plan of care. Contact information given and whiteboard updated. Pt will dc to [facility] room 17 today. CRM to follow.University Hospitals St. John Medical CenterComment on above:Result Comment: Electronically Signed By: Natalie Grant\Date and Time Signed: 12/20/22 11:52 [id number] AnabellaGreater Baltimore Medical CenterComment on above: Result Comment: Electronically Signed By: Leslie MCKINNEY MD.candice\Date and Time Signed: 12/20/22 10:[id number] Hospital Discharge instructions Patient Education 12/20/2022 09:48:09 [...] a long-term care facility, such as a fci. Having your kidneys filtered through hemodialysis in [...] hard liquor (44 mL). General instructions Take ujff-grv-bvesdsx and prescription medicines as told by your [...] are not available, use an alcohol-based hand pyrometer temperature regulator. ?Make sure your health care providers wash [...] and water or with alcohol- based hand pyrometer temperature regulator before and after caring for sick people. [...] bacteria common in health care settings. Take ycvt-fnq-lgvoapb and prescription medicines as told by your [...] provider. Document Revised: 05/31/2022 Document Reviewed: 05/31/2022 [employer] Patient Education 2022 Scripted. Follow Up Care 12/17/2022 23:50:19 With:Bienvenido Barroso Address: [address] [place] [address]- Business (1) When: Unknown Comments:Call for followup appointment [facility]07-28-2023 [facility] SystemComment on above:Result Comment: Electronically Signed By: Maycol CAGLE DO\.br\Date and Time Signed: 12/18/22 06:27 [id number] Medical CenterComment on above:Result Comment: Electronically Signed By: Lizeth Cedeno MD\.br\Date and Time Signed: 12/02/22 12:28 [id number] Evaluation + Plan noteExtracted from: Title:Discharge Note Author:Lizeth Cedeno MD ate:12/02/22 Stable Discharge To, Anticipated II - Senior Living Unit Discharged to - Home with family care Transported by, Anticipated - Family Discharge Diet(s): Other: Limit fluids to 1800 ml/day (12/02/22 12:23:00) Prescriptions aspirin 81 mg Oral EC Tab, 81 mg= 1 tab(s), Oral, Daily ergocalciferol 50,000 intl units Cap, 38868 International_Unit= 1 cap(s), Oral, q7day furosemide 40 [...] Bedtime With When Contact Information Joanie Jiménez [facility] [address] [place] [address]- Business (1) Additional Instructions: HFpEF Dave Dickeydict [address] [place] [address]- Business (1) Additional Instructions: Cog impariment, Alzhiemer's Bienvenido Barroso In [address] [place] [address]- Business (1) Additional Instructions: Extracted from: Title:UPDATE [...] of CAD and previous coronary interventions in [place] with no indication of recurrent CAD, would [...] as able, pulm avery. -check echo Ordered: [facility] Hospital Care/Day High 50 Minutes 39893 2. Acute on chronic diastolic heart failure (I50.33: Acute on chronic diastolic (congestive) heart failure) c/w spironolactone and lasix IV 40mg qd -strict I/Os and daily weight - last echo was done 2014 with EF of 50%. will recheck this visit Ordered: [facility] Hospital Care/Day High 50 Minutes 00721 3. COPD without exacerbation (J44.9: Chronic obstructive pulmonary disease, unspecified) Ordered: [facility] Hospital Care/Day High 50 Minutes 80467 4. Weakness (R53.1: Weakness) -pt/ot Ordered: [facility] Hospital Care/Day High 50 Minutes 75140 5. Sinus bradycardia (R00.1: Bradycardia, unspecified) baseline. last EKG similar. -pt had decreased HR overnight so BB was held. -continue to monitor on tele Ordered: [facility] Hospital Care/Day High 50 Minutes 62484 6. Coronary artery disease (I25.10: Atherosclerotic heart disease of [place] coronary artery without angina pectoris) -c/w ASA Ordered: [facility] Hospital Care/Day High 50 Minutes 06299 7. Obstructive sleep apnea (G47.33: Obstructive sleep apnea (adult) (pediatric)) -CPAP qHS Ordered: [facility] Hospital Care/Day High 50 Minutes 55041 8. Pulmonary hypertension (I27.20: Pulmonary hypertension, unspecified) c/w spironolactone 50mg -lasix 40 mg iv qd -strict I/Os daily weights -check echo Ordered: [facility] Hospital Care/Day High 50 Minutes 82743 9. Abdominal pain (R10.9: Unspecified abdominal pain) resolved no complaints this morning Ordered: [facility] Hospital Care/Day High 50 Minutes 05844 10. Hypertension (I10: Essential (primary) hypertension) c/w spironolactone Ordered: [facility] Care/Day High 50 Minutes 44744 11. Diabetes (E11.9: Type 2 diabetes mellitus without complications) BGT qACHS -c/w glimepiride Ordered: [facility] Hospital Care/Day High 50 Minutes 17155 12. Hyperlipidemia (E78.5: Hyperlipidemia, unspecified) -hold statin due to elevated CK Ordered: [facility] Hospital Care/Day High 50 Minutes 07719 13. Chronic anemia (D64.9: Anemia, unspecified) monitor Ordered: [facility] Care/Day High 50 Minutes 12678 14. BPH (benign prostatic hyperplasia) (N40.0: Benign prostatic hyperplasia without lower urinary tract symptoms) c/w tamsulosin Ordered: [facility] Care/Day High 50 Minutes 31936 15. Dementia (F03.90: Unspecified dementia, unspecified severity, without behavioral disturbance, psychotic disturbance, mood disturbance, and anxiety) -c/w seroquel 25mg qHS Ordered: [facility] Care/Day High 50 Minutes 53858 16. Encounter for deep vein thrombosis (DVT) prophylaxis (Z29.9: Encounter for prophylactic measures, unspecified) Ordered: [facility] Care/Day High 50 Minutes 12191 17. Elevated CK (R74.8: Abnormal levels of other serum enzymes) -CK 1000 this morning. will monitor and hold statin - will not give fluids due to current diuresis Ordered: [facility] Care/Day High 50 Minutes 31897 COPD with acute exacerbation (J44.1: Chronic obstructive [...] artery disease (I25.10: Atherosclerotic heart disease of [place] coronary artery without angina pectoris) Continue aspirin, [...] Scheduled Provider:Donta NOONAN MD Location:Extended Care Appointment Type:[facility]07-10-20[facility] score [facility]/24 [facility] SNF. Patient requires assist w/ all transfers and self care at this time. Inpatient OT services to follow daily to progress w/ functional skills.[facility]07-09-2023 NotePT Evaluation completed with an AMPAC score of 16/24. Pt requires Min A for bed mobility and min/Mod A to stand. Pt was able to take two sidesteps. Will follow daily, but SNF [facility] SystemComment on above:Result Comment: Electronically Signed By: Maycol CAGLE DO\.br\Date and Time Signed: 11/29/22 01:33 [id number] Hospital Discharge instructions Follow Up Care 11/28/2022 17:10:04 With:Joanie Jiménez Address: [facility] [address] [place] [address]- Business (1) When: Unknown Comments:HFpEF With:Dave Cruz Address: [address] [place] [address]- Business (1) When: Unknown Comments:Cog impariment, Alzhiemer's With:Bienvenido Barroso Address: [address] [place] [address] Business (1) When: Unknown [facility]05-20-2023 [facility] SystemComment on above:Result Comment: Electronically Signed By: Adeline COLEMAN\.br\Date and Time Signed: 10/10/22 17:53 EDT\.br\Electronically Co- Signed By: Ganesh Minaya MD\.br\Date and Time Co-Signed: 10/10/22 18:51 EDT 09-27-2022 [facility] SystemComment on above:Result Comment: Electronically Signed By: Adeline COLEMAN\.br\Date and Time Signed: 09/26/22 21:20 EDT\.br\Electronically Co-Signed By: Ganesh Minaya MD\.br\Date and Time Co-Signed: 09/27/22 08:00 [id number] History of Present illness Narrative* Marcelino Echavarria MD - 09/07/2022 1:12 AM EDT Images from the original note were not included. EMERGENCY TRIAGE, TREAT AND TRANSPORT (ET3) DOCUMENTATION OF TELEHEALTH VISIT Date / Time: 09/06/20222146 Name: Clyde Humphrey : 1945 SSN: [id number] EMS Agency: [facility] [x] Verbal consent obtained [] Implied [...] No data available for this section [facility] Diagnosis Fall, initial encounter- Primary [facility] Anxiety- Primary Anxiety state, unspecified [facility] No data available for this section [facility] No data available for this section [facility] Summary Purpose Family History No [...] and content) DATE CREATED AUTHOR 06/26/2021 [facility] dical Specialist DATE CREATED AUTHOR AUTHOR'S ORGANIZ ATION 12/05/2022 [facility] DATE CREATED AUTHOR AUTHOR'S ORGANIZ ATION 03/26/2023 [facility] DATE CREATED AUTHOR AUTHOR'S ORGANIZ ATION 05/04/2023 [facility] DATE CREATED AUTHOR AUTHOR'S ORGANIZ ATION 01/10/2024 [facility] DATE CREATED AUTHOR AUTHOR'S ORGANIZ ATION 01/18/2024 [facility] DATE CREATED AUTHOR AUTHOR'S ORGANIZ ATION 03/29/2024 [facility] Reason for Visit (unrecogniz ed section and content) Reason Comments Fall Patient Care team informatio n (unrecognized section and content) Manufacturing Scheduler Relationship Specialty Start Date End Date Bienvenido Barroso MD [address] [place] [address] PCP - [facility] 07/22/22 Manufacturing Scheduler Relationship Specialty Start Date End Date Bienvenido Barroso MD [address] [place] [address] PCP - [facility] 07/22/22 Manufacturing Scheduler Relationship Specialty Start Date End Date Bienvenido Barroso MD [address] [place] [address] PCP - [facility] 07/22/22 FOR RECORDS PERTAINING [...] BE BASED ON THE PRIMARY CLINICAL RECORDS. [employer] [facility]. provides no warranty or guarantee of the accuracy or completeness of information in this document.
[2024-03-30] MEDS: ALBUTEROL SULFATE 2.5 MG/3 ML VIAL NEB IH ×2 (05:29→11:11)
--- OUTSIDE RECORDS SUMMARY | 2024-03-30 06:20 | XMS_ITS | CCD ---
Author Organization [facility] CliniSyaz Care Team Providers Care Mitigation Supervisor Name Role Phone Unavailable Primary Care Provider [...] 325 mg every 6 (six) hours. Active [id number] 200 actuat albuterol 0.09 mg/actuat metered dose inhaler (4 sources) beta2-Adrenergic Agonist Start: 04-27-2021 take 2 puff(s) by inhalation four times daily for wheezing Pro-Air HFA CFC free 90 mcg/inh MDI 2 puff(s), Inhalation, QID for wheezing, 8.5 gram, Refill(s) 0, [facility], 167.6, cm, 04/24/21 18:14:00 EST, Height/Length [...] Daily, # 30 tab(s), Refills(s) 0, Pharmacy: [facility], 167, cm, 11/28/22 17:20:00 EDT, Height/Length [...] Daily, # 90 tab(s), Refills(s) 4, Pharmacy: [facility], 160, cm, 12/18/22 0:04:00 EDT, Height/Length [...] Daily, # 90 tab(s), Refills(s) 4, Pharmacy: [facility], 160, cm, 12/18/22 0:04:00 EDT, Height/Length [...] Daily, # 90 tab(s), Refills(s) 1, Pharmacy: [facility], 160, cm, 12/18/22 0:04:00 EDT, Height/Length Dosing, 94, kg, 12/18/22 0:04:00 EDT, Weight Dosing Start Date: 01/15/23 Status: Ordered glimepiride 1 mg oral tablet (7 sources) Sulfonylurea Start: 09-28-2022 take 1 tablet by mouth once daily at mealtime glimepiride 1 mg Tab 1 mg = 1 tab(s), Oral, Daily, with the first meal of the day, # 30 tab(s), Refills(s) 0, Pharmacy: [facility], 167, cm, 09/26/22 10:09:00 EDT, Height/Length [...] qHS, # 210 tab(s), Refills(s) 1, Pharmacy: [facility], 160, cm, 12/18/22 0:04:00 EDT, Height/Length [...] Bedtime, # 30 tab(s), Refills(s) 0, Pharmacy: [facility], 167, cm, 11/28/22 17:20:00 EDT, Height/Length [...] Daily, # 90 tab(s), Refills(s) 1, Pharmacy: [facility], 160, cm, 12/18/22 0:04:00 EDT, Height/Length [...] week(s), # 8 cap(s), Refills(s) 0, Pharmacy: [facility], 167, cm, 11/28/22 17:20:00 EDT, Height/Length [...] Start: 06-16-2014 take 1 capsule by mo [facility] twice daily tamsulosin 0.4 mg Cap 0.4 mg = 1 cap(s), Oral, BID, Refills(s) 0, Urinary discomfort Start Date: 06/16/14 Status: Ordered take 1 capsule by [facility] every twenty-four hours in the morning [...] Coronary atherosclerosis; Translations: [Atherosclerotic heart disease of [place] coronary artery without angina pectoris] Onset: 11-29-2022 [...] Range Facility Office Visiton 03-22-2024 Follow-up visit [id number] Clyde Humphrey 1945 M Date Provider Department Center 03/22/2024 [id number] ALEGRIA [facility] No family history on file Level of Service:64819 [place] OFFICE/OUTPATIENT ESTABLISHED [facility] 30 MIN Reason for Visit and Comments: heart block [Other] - 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 Normal [facility] ALL BASIC METABOLIC PANELon 03-03-2024 Anion [...] rate/Area] 46 Low >=60 mL/min/1.73 m 2 [facility] Glucose [Mass/Vol] 132 mg/dL High 74 - 106 mg/dL [facility] Interpretation and review of laboratory results Abnormal [facility] Potassium [Moles/Vol] 4.3 mmol/L 3.5 - 5.1 mmol/L [facility] Sodium [Moles/Vol] 138 mmol/L 136 - 145 mmol/L [facility] TBH EGFR-NON AF HAITIAN 38 Low >=6 0 mL/min/1.73 m 2 [facility] Urea nitrogen [Mass/Vol] 37.0 mg/dL High 7.0 - 18.0 mg/dL [facility] Urea nitrogen/Creatinine [Mass ratio] 21.4 mg/mg [facility] ALL PRO BNPon 03-03-2024 NT PRO B TYPE NATRIURETIC PEPT 1772.0 pg/mL NINF - 1800.0 pg/mL [facility] No Panel Informationon 03-03 [facility] ALL CBC WITH AUTO DIFFon BASOPHILS ABSOLUTE AUTO 0.0 N [facility] Basophils/100 WBC (Bld) 0.4 % 0.2 - 2.0 % [facility] Eosinophils/100 WBC (Bld) 15.4 % High 0.9 - 7.0 % [facility] Erythrocyte distribution width (RBC) [Ratio] 16.1 % High 11.0 - 15.0 % [facility] Hematocrit (Bld) [Volume fraction] 40.0 % Low 42.0 - 54.0 % [facility] Hemoglobin (Bld) [Mass/Vol] 12.6 g/dL Low 14.0 - 18.0 g/dL [facility] IMMATURE GRANULOCYTES ABS AUTO 0.22 High [facility] Immature granulocytes/100 WBC (Bld) 2.9 % High 0.0 - 0.5 % [facility] Interpretation and review of laboratory results Abnormal [facility] LYMPHOCYTES ABSOLUTE AUTO 1.3 [facility] Lymphocytes/100 WBC (Bld) 16.9 % Low 20.5 - 60.0 % [facility] MCH (RBC) [Entitic mass] 28.7 pg 25. 9 - 34.0 pg [facility] MCHC (RBC) [Mass/Vol] 31.5 g/dL 29.9 - [...] [facility] Office Visiton 01-21-2024 Follow-up visit [id number] Clyde Humphrey 1945 M Date Provider Department Center 01/21/2024 [id number] ALEGRIA [facility] No family history on file Level of Service:72481 [place] POSTOP FOLLOW UP VISIT RELATED TO ORIGINAL PX Normal [facility] 30on 01-16-2024 30 The patient is Moderately Stable - Low risk of patient condition declining or worsening The patient's goals for the shift include alyica The clinical goals for the shift include stable vitals, safety Over the shift, the patient did not make progress toward the following goals. Barriers to progression include none. Recommendations to address these barriers include none Problem: Pain Goal: STG-Pt will verbalize pain management techniques Outcome: Progressing . Normal [facility] BASIC METABOLIC PANELon 12-23 Anion gap [Moles/Vol] 13 mmol/L Normal 7-20 [facility] Comment on above: Performed By: #### L [id number] ####[facility] ([facility])[address] [place] [address] Calcium [Mass/Vol] 8.8 mg/dL Normal 8.6-10.3 [facility] Comment on above: Performed By: #### L [id number] ####[facility] ([facility])[address] [place] [address] Chloride [Moles/Vol] 104 mmol/L Normal 98-107 [facility] Comment on above: Performed By: #### L [id number] ####[facility] ([facility])[address] [place] [address] CO2 [Moles/Vol] 29 mmol/L Normal 21-31 [facility] Comment on above: Performed By: #### L [id number] ####[facility] ([facility])[address] [place] [address] Creatinine [Mass/Vol] 1.02 mg/dL Normal 0.70-1.30 [facility] Comment on above: Performed By: #### L [id number] ####[facility] ([facility])[address] [place] [address] GLOMERULAR FILTRATION RATE ML/MIN/1.73 SQ M.PREDICTED 74.8 mL/min/1.73m*2 Normal >60.0 [facility] Comment on above: Result Comment: [facility]???s estimated glomerular filtration rate (eGFR) will [...] ####[facility] ([facility])[address] [place] [address] Glucose [Mass/Vol] 99 mg/dL Normal 70-100 [facility] Comment on above: Performed By: #### L [id number] ####[facility] ([facility])[address] [place] [address] Potassium [Moles/Vol] 4.2 mmol/L Normal 3.5-5.1 [facility] Comment on above: Performed By: #### L [id number] ####[facility] ([facility])[address] [place] [address] Sodium [Moles/Vol] 142 mmol/L Normal 136-145 [facility] Comment on above: Performed By: #### L [id number] ####[facility] ([facility])[address] [place] [address] Urea nitrogen [Mass/Vol] 27 mg/dL High 12-15 [facility] Comment on above: Performed By: #### L [id number] ####[facility] ([facility])[address] [place] [address] UREA NITROGEN/CREATININE (MASS RATIO) IN SER/PLAS 26.5 Normal [facility] Comment on above: Performed By: #### L [id number] ####[facility] ([facility])[address] [place] [address] CBC WITH AUTO DIFFERENTIALon 01-16-2024 Basophils (Bld) [#/Vol] 0.03 10*3/uL Normal 0.00-0.20 [facility] Comment on above: Performed By: #### L [id number] #### [facility] ([facility]) [address] [place] [address] Basophils/100 WBC (Bld) 0.4 % Normal 0.0-1.0 [facility] Comment on above: Performed By: #### L [id number] #### [facility] ([facility]) [address] [place] [address] Eosinophils (Bld) [#/Vol] 0.45 10*3/uL Normal 0.00-0.50 [facility] Comment on above: Performed By: #### L [id number] #### [facility] [address] [place] [address] Eosinophils/100 WBC (Bld) 5.7 % Normal 0.0-6.0 [facility] Comment on above: Performed By: #### L [id number] #### [facility] [address] [place] [address] Erythrocyte distribution width (RBC) [Ratio] 14.6 % Normal 11.5-15.0 [facility] Comment on above: Performed By: #### L [id number] #### [facility] [address] [place] [address] ERYTHROCYTE MEAN CORPUSCULAR HEMOGLOBIN CONCENTRATION (G/DL) BY AUTOMATED 31.6 g/dL Low 32.0-35.0 [facility] Comment on above: Performed By: #### L [id number] #### [facility] [address] [place] [address] Hematocrit (Bld) [Volume fraction] 37.7 % Low 39.0-55.0 [facility] Comment on above: Performed By: #### L [id number] #### [facility] ([facility]) [address] [place] [address] Hemoglobin (Bld) [Mass/Vol] 11.9 g/dL Low 13.0-17.0 [facility] Comment on above: Performed By: #### L [id number] #### [facility] [address] [place] [address] Immature granulocytes (Bld) [#/Vol] 0.18 10*3/uL Normal 0.00-0.20 [facility] Comment on above: Performed By: #### L [id number] #### [facility] ([facility]) [address] [place] [address] Immature granulocytes/100 WBC (Bld) 2.3 % High 0.0-1.0 [facility] Comment on above: Performed By: #### L [id number] #### [facility] ([facility]) [address] [place] [address] Lymphocytes (Bld) [#/Vol] 1.51 10*3/uL Normal 1.20-4.00 [facility] Comment on above: Performed By: #### L [id number] #### [facility] ([facility]) [address] [address] Lymphocytes/100 WBC (Bld) 19.3 % Low 20.0-45.0 [facility] Comment on above: Performed By: #### L [id number] #### [facility] ([facility]) [address] [place] [address] MCH (RBC) [Entitic mass] 28.4 pg Normal 27.0-33.0 [facility] Comment on above: Performed By: #### L [id number] #### [facility] ([facility]) [address] [place] [address] MCV (RBC) [Entitic vol] 90.0 fL Normal 82.0-98.0 [facility] Comment on above: Performed By: #### L [id number] #### [facility] ([facility]) [address] [place] [address] Monocytes (Bld) [#/Vol] 0.90 10*3/uL Normal 0.10-1.00 [facility] Comment on above: Performed By: #### L [id number] #### [facility] ([facility]) [address] [place] [address] Monocytes/100 WBC (Bld) 11.5 % Normal 5.0-12.0 [facility] Comment on above: Performed By: #### L [id number] #### [facility] ([facility]) [address] [place] [address] Neutrophils (Bld) [#/Vol] 4.77 10*3/uL Normal 1.60-7.60 [facility] Comment on above: Performed By: #### L [id number] #### [facility] ([facility]) [address] [place] [address] Neutrophils/100 WBC (Bld) 60.8 % Normal 40.0-72.0 [facility] Comment on above: Performed By: #### L [id number] #### [facility] [address] [place] [address] NRBC (PER 100 WBCS) BY AUTOMATED COUNT 0.0 % Normal 0 [facility] Comment on above: Performed By: #### L [id number] #### [facility] ([facility]) [address] [place] [address] PLATELETS (10*3/UL) IN BLOOD AUTOMATED COUNT 159 10*3/uL Normal 150-400 [facility] Comment on above: Performed By: #### L [id number] #### [facility] ([facility]) [address] [place] [address] RBC (Bld) [#/Vol] 4.19 10*6/uL Low 4.20-5.70 [facility] Comment on above: Performed By: #### L [id number] #### [facility] ([facility]) [address] [place] [address] WBC (Bld) [#/Vol] 7.84 10*3/uL Normal 4.00-10.60 [facility] Comment on above: Performed By: #### L [id number] #### [facility] ([facility]) [address] [place] [address] NURSNOTEon 01-16-2024 NURSNOTE Pt discharged via [facility] with all belongings and questions answered to pt's satisfaction. Normal [facility] NURSNOTE RN attempted to call report to [facility], no answer Normal [facility] BASIC METABOLIC PANELon 12-23 Anion gap [Moles/Vol] 13 mmol/L Normal 7-20 [facility] Comment on above: Performed By: #### L [id number] ####[facility] ([facility] [place] [address] Calcium [Mass/Vol] 8.6 mg/dL Normal 8.6-10.3 [facility] Comment on above: Performed By: #### L [id number] ####[facility] [place] [address] Chloride [Moles/Vol] 106 mmol/L Normal 98-107 [facility] Comment on above: Performed By: #### L [id number] ####[facility] ([facility])[address] [place] [address] CO2 [Moles/Vol] 29 mmol/L Normal 21-31 [facility] Comment on above: Performed By: #### L [id number] ####[facility] [place] [address] Creatinine [Mass/Vol] 0.98 mg/dL Normal 0.70-1.30 [facility] Comment on above: Performed By: #### L [id number] ####[facility] ([facility])[address] [place] [address] GLOMERULAR FILTRATION RATE ML/MIN/1.73 SQ M.PREDICTED 78.4 mL/min/1.73m*2 Normal >60.0 [facility] Comment on above: Result Comment: [facility]???s estimated glomerular filtration rate (eGFR) will [...] ####[facility] [place] [address] Glucose [Mass/Vol] 101 mg/dL High 70-100 [facility] Comment on above: Performed By: #### L [id number] ####[facility] ([facility])[address] [place] [address] Potassium [Moles/Vol] 4.2 mmol/L Normal 3.5-5.1 [facility] Comment on above: Performed By: #### L [id number] ####[facility] [place] [address] Sodium [Moles/Vol] 144 mmol/L Normal 136-145 [facility] Comment on above: Performed By: #### L [id number] ####[facility] ([facility])[address] [place] [address] Urea nitrogen [Mass/Vol] 25 mg/dL Normal 7-25 [facility] Comment on above: Performed By: #### L [id number] ####[facility] ([facility])[address] [place] [address] UREA NITROGEN/CREATININE (MASS RATIO) IN SER/PLAS 25.5 Normal [facility] Comment on above: Performed By: #### L [id number] ####[facility] ([facility])[address] [place] [address] CBC WITH AUTO DIFFERENTIALon 01-15-2024 Basophils (Bld) [#/Vol] 0.05 10*3/uL Normal 0.00-0.20 [facility] Comment on above: Performed By: #### L [id number] #### [facility] ([facility]) [address] [place] [address] Basophils/100 WBC (Bld) 0.6 % Normal 0.0-1.0 [facility] Comment on above: Performed By: #### L [id number] #### [facility] ([facility]) [address] [place] [address] Eosinophils (Bld) [#/Vol] 0.53 10*3/uL High 0.00-0.50 [facility] Comment on above: Performed By: #### L [id number] #### [facility] ([facility]) [address] [place] [address] Eosinophils/100 WBC (Bld) 6.7 % High 0.0-6.0 [facility] Comment on above: Performed By: #### L [id number] #### [facility] [address] [place] [address] Erythrocyte distribution width (RBC) [Ratio] 14.9 % Normal 11.5-15.0 [facility] Comment on above: Performed By: #### L [id number] #### [facility] ([facility]) [address] [place] [address] ERYTHROCYTE MEAN CORPUSCULAR HEMOGLOBIN CONCENTRATION (G/DL) BY AUTOMATED 31.3 g/dL Low 32.0-35.0 [facility] Comment on above: Performed By: #### L [id number] #### [facility] ([facility]) [address] [place] [address] Hematocrit (Bld) [Volume fraction] 37.4 % Low 39.0-55.0 [facility] Comment on above: Performed By: #### L [id number] #### [facility] ([facility]) [address] [place] [address] Hemoglobin (Bld) [Mass/Vol] 11.7 g/dL Low 13.0-17.0 [facility] Comment on above: Performed By: #### L [id number] #### [facility] ([facility]) [address] [place] [address] Immature granulocytes (Bld) [#/Vol] 0.14 10*3/uL Normal 0.00-0.20 [facility] Comment on above: Performed By: #### L [id number] #### [facility] ([facility]) [address] [place] [address] Immature granulocytes/100 WBC (Bld) 1.8 % High 0.0-1.0 [facility] Comment on above: Performed By: #### L [id number] #### [facility] ([facility]) [address] [place] [address] Lymphocytes (Bld) [#/Vol] 1.27 10*3/uL Normal 1.20-4.00 [facility] Comment on above: Performed By: #### L [id number] #### [facility] ([facility]) [address] [place] [address] Lymphocytes/100 WBC (Bld) 16.2 % Low 20.0-45.0 [facility] Comment on above: Performed By: #### L [id number] #### [facility] ([facility]) [address] [place] [address] MCH (RBC) [Entitic mass] 28.5 pg Normal 27.0-33.0 [facility] Comment on above: Performed By: #### L [id number] #### [facility] ([facility]) [address] [place] [address] MCV (RBC) [Entitic vol] 91.0 fL Normal 82.0-98.0 [facility] Comment on above: Performed By: #### L [id number] #### [facility] ([facility]) [address] [place] [address] Monocytes (Bld) [#/Vol] 0.81 10*3/uL Normal 0.10-1.00 [facility] Comment on above: Performed By: #### L [id number] #### [facility] ([facility]) [address] [place] [address] Monocytes/100 WBC (Bld) 10.3 % Normal 5.0-12.0 [facility] Comment on above: Performed By: #### L [id number] #### [facility] ([facility]) [address] [place] [address] Neutrophils (Bld) [#/Vol] 5.06 10*3/uL Normal 1.60-7.60 [facility] Comment on above: Performed By: #### L [id number] #### [facility] ([facility]) [address] [place] [address] Neutrophils/100 WBC (Bld) 64.4 % Normal 40.0-72.0 [facility] Comment on above: Performed By: #### L [id number] #### [facility] ([facility]) [address] [place] [address] NRBC (PER 100 WBCS) BY AUTOMATED COUNT 0.0 % Normal 0 [facility] Comment on above: Performed By: #### L [id number] #### [facility] [address] [place] [address] PLATELETS (10*3/UL) IN BLOOD AUTOMATED COUNT 156 10*3/uL Normal 150-400 [facility] Comment on above: Performed By: #### L [id number] #### [facility] ([facility]) [address] [place] [address] RBC (Bld) [#/Vol] 4.11 10*6/uL Low 4.20-5.70 [facility] Comment on above: Performed By: #### L [id number] #### [facility] ([facility] [address] [place] [address] WBC (Bld) [#/Vol] 7.86 10*3/uL Normal 4.00-10.60 [facility] Comment on above: Performed By: #### L [id number] #### [facility] ([facility] [address] [place] [address] NURSNOTEon 01-15-2024 NURSNOTE Nurse noted pt oxyge n saturation dipping below 92% due to patient sleeping soundly with mouth open. Nurse attempted to apply supplemental oxygen after explaining to patient via communication board. Pt began yelling at nurse and swatting the oxygen tubing away from his face. Will continue to monitor. Normal [facility] 30on 01-14-2024 30 The patient is [...] barriers include continuing to encourage sling. Normal [facility] 30 Daily Case Managemen t Update Multidisciplinary rounds have been completed. Barriers to Discharge: Pending medical clearance for discharge. Discharge plan is to [facility] when medically ready. Diet: Dietary Orders [...] OT Six Click Score: 14 PT Recommendations: alf facility placement OT Recommendations: alf facility placement New Consults: Therapy Orders (From admission, onward) Start Ordered 01/11/24 1348 PT eval and treat Until therapy completed Question: Reason for PT? Answer: eval and treat 01/11/24 1347 01/11/24 1348 OT eval and treat Until therapy completed Question: Reason for OT? Answer: eval and treat 01/11/24 1347 Normal [facility] 30 The patient is Moderately Stable [...] and report changes in neurological status Normal [facility] BASIC METABOLIC PANELon 12-23 Anion gap [Moles/Vol] 12 mmol/L Normal 7-20 [facility] Comment on above: Performed By: #### L [id number] #### [facility] ([facility]) [address] [place] [address] Calcium [Mass/Vol] 8.5 mg/dL Low 8.6-10.3 [facility] Comment on above: Performed By: #### L [id number] #### [facility] ([facility]) [address] [place] [address] Chloride [Moles/Vol] 104 mmol/L Normal 98-107 [facility] Comment on above: Performed By: #### L [id number] #### [facility] ([facility]) [address] [place] [address] CO2 [Moles/Vol] 30 mmol/L Normal 21-31 [facility] Comment on above: Performed By: #### L [id number] #### [facility] ([facility] [place] [address] [place] [address] Creatinine [Mass/Vol] 0.93 mg/dL Normal 0.70-1.30 [facility] Comment on above: Performed By: #### L [id number] #### [facility] ([facility] [place]) [address] [place] [address] GLOMERULAR FILTRATION RATE ML/MIN/1.73 SQ M.PREDICTED 83.5 mL/min/1.73m*2 Normal >60.0 [facility] Comment on above: Result Comment: [facility]???s estimated glomerular filtration rate (eGFR) will [...] [facility] ([facility] [place]) [address] [place] [address] Glucose [Mass/Vol] 96 mg/dL Normal 70-100 [facility] Comment on above: Performed By: #### L [id number] #### [facility] ([facility] [place]) [address] [place] [address] Potassium [Moles/Vol] 4.5 mmol/L Normal 3.5-5.1 [facility] Comment on above: Performed By: #### L [id number] #### [facility] ([facility] [place]) [address] [place] [address] Sodium [Moles/Vol] 141 mmol/L Normal 136-145 [facility] Comment on above: Performed By: #### L [id number] #### [facility] [address] [place] [address] Urea nitrogen [Mass/Vol] 20 mg/dL Normal 7-25 [facility] Comment on above: Performed By: #### L [id number] #### [facility] [address] [place] [address] UREA NITROGEN/CREATININE (MASS RATIO) IN SER/PLAS 21.5 Normal [facility] Comment on above: Performed By: #### L [id number] #### [facility] [address] [place] [address] CBC WITH AUTO DIFFERENTIALon 01-14-2024 Basophils (Bld) [#/Vol] 0.03 10*3/uL Normal 0.00-0.20 [facility] Comment on above: Performed By: #### L [id number] ####[facility] ([facility] [place])[address] [place] [address] Basophils/100 WBC (Bld) 0.4 % Normal 0.0-1.0 [facility] Comment on above: Performed By: #### L [id number] ####[facility] ([facility] [place])[address] [place] [address] Eosinophils (Bld) [#/Vol] 0.54 10*3/uL High 0.00-0.50 [facility] Comment on above: Performed By: #### L [id number] ####[facility] [place] [address] Eosinophils/100 WBC (Bld) 6.4 % High 0.0-6.0 [facility] Comment on above: Performed By: #### L [id number] ####[facility] [place] [address] Erythrocyte distribution width (RBC) [Ratio] 14.6 % Normal 11.5-15.0 [facility] Comment on above: Performed By: #### L [id number] ####[facility] ([facility])[address] [place] [address] ERYTHROCYTE MEAN CORPUSCULAR HEMOGLOBIN CONCENTRATION (G/DL) BY AUTOMATED 31.9 g/dL Low 32.0-35.0 [facility] Comment on above: Performed By: #### L [id number] ####[facility] ([facility])[address] [place] [address] Hematocrit (Bld) [Volume fraction] 38.6 % Low 39.0-55.0 [facility] Comment on above: Performed By: #### L [id number] ####[facility] ([facility])[address] [place] [address] Hemoglobin (Bld) [Mass/Vol] 12.3 g/dL Low 13.0-17.0 [facility] Comment on above: Performed By: #### L [id number] ####[facility] ([facility])[address] [place] [address] Immature granulocytes (Bld) [#/Vol] 0.16 10*3/uL Normal 0.00-0.20 [facility] Comment on above: Performed By: #### L [id number] ####[facility] ([facility])[address] [place] [address] Immature granulocytes/100 WBC (Bld) 1.9 % High 0.0-1.0 [facility] Comment on above: Performed By: #### L [id number] ####[facility] ([facility])[address] [place] [address] Lymphocytes (Bld) [#/Vol] 1.07 10*3/uL Low 1.20-4.00 [facility] Comment on above: Performed By: #### L [id number] ####[facility] ([facility])[address] [place] [address] Lymphocytes/100 WBC (Bld) 12.7 % Low 20.0-45.0 [facility] Comment on above: Performed By: #### L [id number] ####[facility] ([facility])[address] [place] [address] MCH (RBC) [Entitic mass] 28.5 pg Normal 27.0-33.0 [facility] Comment on above: Performed By: #### L [id number] ####[facility] [place] [address] MCV (RBC) [Entitic vol] 89.4 fL Normal 82.0-98.0 [facility] Comment on above: Performed By: #### L [id number] ####[facility] ([facility] [place])[address] [place] [address] Monocytes (Bld) [#/Vol] 0.59 10*3/uL Normal 0.10-1.00 [facility] Comment on above: Performed By: #### L [id number] ####[facility] ([facility] [place])[address] [place], [place] [address] Monocytes/100 WBC (Bld) 7.0 % Normal 5.0-12.0 [facility] Comment on above: Performed By: #### L [id number] ####[facility] ([facility] [place])[address] [place] [address] Neutrophils (Bld) [#/Vol] 6.01 10*3/uL Normal 1.60-7.60 [facility] Comment on above: Performed By: #### L [id number] ####[facility] [place] [address] Neutrophils/100 WBC (Bld) 71.6 % Normal 40.0-72.0 [facility] Comment on above: Performed By: #### L [id number] ####[facility] [place], [place] [address] NRBC (PER 100 WBCS) BY AUTOMATED COUNT 0.0 % Normal 0 [facility] Comment on above: Performed By: #### L [id number] ####[facility] ([facility])[address] [place], [place] [address] PLATELETS (10*3/UL) IN BLOOD AUTOMATED COUNT 159 10*3/uL Normal 150-400 [facility] Comment on above: Performed By: #### L [id number] ####[facility] ([facility] [place])[address] [place] [address] RBC (Bld) [#/Vol] 4.32 10*6/uL Normal 4.20-5.70 [facility] Comment on above: Performed By: #### L [id number] ####[facility] ([facility] [place])[address] [place] [address] WBC (Bld) [#/Vol] 8.40 10*3/uL Normal 4.00-10.60 [facility] Comment on above: Performed By: #### L [id number] ####[facility] ([facility] [place])[address] [place] [address] HEMOGLOBIN AND HEMATOCRIT, B LOODon 01-14-2024 Hematocrit (Bld) [Volume fraction] 42.2 % Normal 39.0-55.0 [facility] Comment on above: Performed By: #### L [id number] ####[facility] ([facility] [place])[address] [place] [address] Hemoglobin (Bld) [Mass/Vol] 13.1 g/dL Normal 13.0-17.0 [facility] Comment on above: Performed By: #### L [id number] ####[facility] ([facility] [place])[address] [place] [address] POCT GLUCOSE METER UNSOLICIT ED RESULTSon 01-14-2024 Glucose [Mass/Vol] 111 mg/dL High 70-105 [facility] Comment on above: Order Comment: Waive d Testing in the ED is performed under the ED CLIA certificate #[id number]. Result Comment: [email or web address] fry Performed By: #### L [id number] ####[facility] [place] [address] Glucose [Mass/Vol] 151 mg/dL High 70-105 [facility] Comment on above: Order Comment: Waive d Testing in the ED is performed under the ED CLIA certificate #[id number]. Result Comment: [email or web address] [email or web address] Performed By: #### L [id number] #### [facility] ([facility]) [address] [place] [address] Glucose [Mass/Vol] 205 mg/dL High 70-105 [facility] Comment on above: Order Comment: Waive d Testing in the ED is performed under the ED CLIA certificate #[id number]. Result Comment: [email or web address] [id number] Performed By: #### L [id number] #### [facility] ([facility]) [address] [place] [address] 30on 01-13-2024 30 Problem: Pain Goal: STG-Pt [...] Patient wheezy duoneb and lasix received. Normal [facility] 30 Daily Case Managemen t Update Multidisciplinary rounds have been completed. Barriers to Discharge: Pending clinical course and improvement in clinical condition. Pending precert to [facility]; started today. Diet: Dietary Orders [...] OT Six Click Score: 14 PT Recommendations: alf facility placement OT Recommendations: alf facility placement New Consults: Therapy Orders (From admission, onward) Start Ordered 01/11/24 1348 PT eval and treat Until therapy completed Question: Reason for PT? Answer: eval and treat 01/11/24 1347 01/11/24 1348 OT eval and treat Until therapy completed Question: Reason for OT? Answer: eval and treat 01/11/24 1347 Normal [facility] 30 The patient is Moderately Stable [...] difficulty Respiratory therapy support as indicated Normal [facility] BASIC METABOLIC PANELon 12-23 Anion gap [Moles/Vol] 9 mmol/L Normal 7-20 [facility] Comment on above: Performed By: #### L [id number] #### [facility] ([facility]) [address] [place] [address] Calcium [Mass/Vol] 8.3 mg/dL Low 8.6-10.3 [facility] Comment on above: Performed By: #### L [id number] #### [facility] ([facility]) [address] [place] [address] Chloride [Moles/Vol] 105 mmol/L Normal 98-107 [facility] Comment on above: Performed By: #### L [id number] #### [facility] ([facility]) [address] [place] [address] CO2 [Moles/Vol] 29 mmol/L Normal 21-31 [facility] Comment on above: Performed By: #### L [id number] #### [facility] ([facility]) [address] [place] [address] Creatinine [Mass/Vol] 0.74 mg/dL Normal 0.70-1.30 [facility] Comment on above: Performed By: #### L [id number] #### [facility] ([facility]) [address] [place] [address] GLOMERULAR FILTRATION RATE ML/MIN/1.73 SQ M.PREDICTED 92.2 mL/min/1.73m*2 Normal >60.0 [facility] Comment on above: Result Comment: [facility]???s estimated glomerular filtration rate (eGFR) will [...] group of individuals. Performed By: #### L [id number] #### [facility] ([facility] [place]) [address] [place] [address] Glucose [Mass/Vol] 106 mg/dL High 70-100 [facility] Comment on above: Performed By: #### L [id number] #### [facility] ([facility] [place]) [address] [place] [address] Potassium [Moles/Vol] 4.3 mmol/L Normal 3.5-5.1 [facility] Comment on above: Performed By: #### L [id number] #### [facility] ([facility]) [address] [place] [address] Sodium [Moles/Vol] 139 mmol/L Normal 136-145 [facility] Comment on above: Performed By: #### L [id number] #### [facility] [address] [place] [address] Urea nitrogen [Mass/Vol] 16 mg/dL Normal 7-25 [facility] Comment on above: Performed By: #### L [id number] #### [facility] ([facility] [place]) [address] [place] [address] UREA NITROGEN/CREATININE (MASS RATIO) IN SER/PLAS 21.6 Normal [facility] Comment on above: Performed By: #### L [id number] #### [facility] ([facility]) [address] [place] [address] CBC WITH AUTO DIFFERENTIALon 01-13-2024 Basophils (Bld) [#/Vol] 0.04 10*3/uL Normal 0.00-0.20 [facility] Comment on above: Performed By: #### L [id number] #### [facility] ([facility] [place]) [address] [place] [address] Basophils/100 WBC (Bld) 0.5 % Normal 0.0-1.0 [facility] Comment on above: Performed By: #### L [id number] #### [facility] ([facility] [place]) [address] [place] [address] Eosinophils (Bld) [#/Vol] 0.45 10*3/uL Normal 0.00-0.50 [facility] Comment on above: Performed By: #### L [id number] #### [facility] [address] [place] [address] Eosinophils/100 WBC (Bld) 5.9 % Normal 0.0-6.0 [facility] Comment on above: Performed By: #### L [id number] #### [facility] [address] [place] [address] Erythrocyte distribution width (RBC) [Ratio] 14.6 % Normal 11.5-15.0 [facility] Comment on above: Performed By: #### L [id number] #### [facility] [address] [place] [address] ERYTHROCYTE MEAN CORPUSCULAR HEMOGLOBIN CONCENTRATION (G/DL) BY AUTOMATED 31.9 g/dL Low 32.0-35.0 [facility] Comment on above: Performed By: #### L [id number] #### [facility] ([facility]) [address] [place] [address] Hematocrit (Bld) [Volume fraction] 35.7 % Low 39.0-55.0 [facility] Comment on above: Performed By: #### L [id number] #### [facility] ([facility]) [address] [place] [address] Hemoglobin (Bld) [Mass/Vol] 11.4 g/dL Low 13.0-17.0 [facility] Comment on above: Performed By: #### L [id number] #### [facility] [address] [place] [address] Immature granulocytes (Bld) [#/Vol] 0.15 10*3/uL Normal 0.00-0.20 [facility] Comment on above: Performed By: #### L [id number] #### [facility] ([facility] [place]) [address] [place] [address] Immature granulocytes/100 WBC (Bld) 2.0 % High 0.0-1.0 [facility] Comment on above: Performed By: #### L [id number] #### [facility] ([facility]) [address] [place] [address] Lymphocytes (Bld) [#/Vol] 1.22 10*3/uL Normal 1.20-4.00 [facility] Comment on above: Performed By: #### L [id number] #### [facility] [address] [place] [address] Lymphocytes/100 WBC (Bld) 16.1 % Low 20.0-45.0 [facility] Comment on above: Performed By: #### L [id number] #### [facility] ([facility]) [address] [place] [address] MCH (RBC) [Entitic mass] 28.6 pg Normal 27.0-33.0 [facility] Comment on above: Performed By: #### L [id number] #### [facility] ([facility]) [address] [place] [address] MCV (RBC) [Entitic vol] 89.5 fL Normal 82.0-98.0 [facility] Comment on above: Performed By: #### L [id number] #### [facility] ([facility] [place]) [address] [place] [address] Monocytes (Bld) [#/Vol] 0.83 10*3/uL Normal 0.10-1.00 [facility] Comment on above: Performed By: #### L [id number] #### [facility] ([facility] [place]) [address] [place] [address] Monocytes/100 WBC (Bld) 10.9 % Normal 5.0-12.0 [facility] Comment on above: Performed By: #### L [id number] #### [facility] ([facility] [place]) [address] [place] [address] Neutrophils (Bld) [#/Vol] 4.89 10*3/uL Normal 1.60-7.60 [facility] Comment on above: Performed By: #### L [id number] #### [facility] ([facility] [place]) [address] [place] [address] Neutrophils/100 WBC (Bld) 64.6 % Normal 40.0-72.0 [facility] Comment on above: Performed By: #### L [id number] #### [facility] ([facility] [place]) [address] [place] [address] NRBC (PER 100 WBCS) BY AUTOMATED COUNT 0.0 % Normal 0 [facility] Comment on above: Performed By: #### L [id number] #### [facility] ([facility] [place]) [address] [place] [address] PLATELETS (10*3/UL) IN BLOOD AUTOMATED COUNT 152 10*3/uL Normal 150-400 [facility] Comment on above: Performed By: #### L [id number] #### [facility] ([facility] [place]) [address] [place] [address] RBC (Bld) [#/Vol] 3.99 10*6/uL Low 4.20-5.70 [facility] Comment on above: Performed By: #### L [id number] #### [facility] ([facility]) [address] [place] [address] WBC (Bld) [#/Vol] 7.58 10*3/uL Normal 4.00-10.60 [facility] Comment on above: Performed By: #### L [id number] #### [facility] ([facility] [place]) [address] [place] [address] FERRITINon 01-13-2024 FERRITIN (NG/ML) IN SER/PLAS 53.0 ng/mL Normal 24.0-336.0 [facility] Comment on above: Performed By: #### L [id number] #### [facility] ([facility] [place]) [address] [place] [address] FOLATEon 01-13-2024 FOLATE (NG/ML) IN SER/PLAS 12.14 ng/mL Normal 6.6-1000 [facility] Comment on above: Performed By: #### L [id number] ####[facility] [place] [address] IRON AND TIBCon 01-13-2024 IRON (UG/DL) IN SER/PLAS 37 ug/dL Low 50-212 [facility] Comment on above: Performed By: #### L [id number] #### [facility] [address] [place] [address] IRON BINDING CAPACITY (UG/DL) IN SER/PLAS 244 ug/dL Low 250-450 [facility] Comment on above: Performed By: #### L [id number] #### [facility] ([facility]) [address] [place] [address] IRON BINDING CAPACITY.UNSATURATED (UG/DL) IN SER/PLAS 207.0 ug/dL Normal 155.0-355.0 [facility] Comment on above: Performed By: #### L [id number] #### [facility] ([facility]) [address] [place] [address] IRON SATURATION (%) IN SER/PLAS 15 % Low 20-50 [facility] Comment on above: Performed By: #### L [id number] #### [facility] ([facility] [place]) [address] [place] [address] PHOSPHORUSon 01-13-2024 Magnesium [Mass/Vol] 2.7 mg/dL Normal 2.5-5.0 [facility] Comment on above: Performed By: #### L [id number] #### [facility] ([facility] [place]) [address] [place] [address] POCT GLUCOSE METER UNSOLICIT ED RESULTSon 01-13-2024 Glucose [Mass/Vol] 107 mg/dL High 70-105 [facility] Comment on above: Order Comment: Waive d Testing in the ED is performed under the ED CLIA certificate #[id number]. Result Comment: [email or web address] Performed By: #### L [id number] #### [facility] ([facility]) [address] [place] [address] Glucose [Mass/Vol] 115 mg/dL High 70-105 [facility] Comment on above: Order Comment: Waive d Testing in the ED is performed under the ED CLIA certificate #[id number]. Result Comment: [email or web address] Performed By: #### L [id number] #### [facility] ([facility]) [address] [place] [address] Glucose [Mass/Vol] 164 mg/dL High 70-105 [facility] Comment on above: Order Comment: Waive d Testing in the ED is performed under the ED CLIA certificate #[id number]. Result Comment: [email or web address] [email or web address] Performed By: #### L [id number] #### [facility] ([facility]) [address] [place] [address] Glucose [Mass/Vol] 116 mg/dL High 70-105 [facility] Comment on above: Order Comment: Waive d Testing in the ED is performed under the ED CLIA certificate #[id number]. Result Comment: [email or web address] [email or web address] Performed By: #### L [id number] #### [facility] ([facility]) [address] [place] [address] VITAMIN B12on 01-13-2024 Cobalamin (Vitamin B12) [Mass/Vol] 179 pg/mL Low 180-914 [facility] Comment on above: Result Comment: REFMarlen MORALES RANGES: 180-914 pg/mL Normal 145-179 pg/mL Indeterminate <145 pg/mL Deficient Performed By: #### L [id number] ####[facility] ([place])[address] [place] [address] 30on 01-12-2024 30 Daily Case Managemen t Update Multidisciplinary rounds have been completed. Barriers to Discharge: 01/11- still waiting on pt ot, awaiting SW to confirm return to [place], needs to talk to daughter, aware. Ct [...] Click Score: 14 PT Recommendations: OT Recommendations: alf facility placement New Consults: Consult Orders (From [...] Answer: eval and treat 01/11/24 1347 Normal [facility] CBCon 01-12-2024 Erythrocyte distribution width (RBC) [Ratio] 14.6 % Normal 11.5-15.0 [facility] Comment on above: Performed By: #### L [id number] #### [facility] [address] [place] [address] ERYTHROCYTE MEAN CORPUSCULAR HEMOGLOBIN CONCENTRATION (G/DL) BY AUTOMATED 32.2 g/dL Normal 32.0-35.0 [facility] Comment on above: Performed By: #### L [id number] #### [facility] [address] [place] [address] Hematocrit (Bld) [Volume fraction] 34.5 % Low 39.0-55.0 [facility] Comment on above: Performed By: #### L [id number] #### [facility] [address] [place] [address] Hemoglobin (Bld) [Mass/Vol] 11.1 g/dL Low 13.0-17.0 [facility] Comment on above: Performed By: #### L [id number] #### [facility] [address] [place] [address] MCH (RBC) [Entitic mass] 28.8 pg Normal 27.0-33.0 [facility] Comment on above: Performed By: #### L [id number] #### [facility] ([facility]) [address] [place] [address] MCV (RBC) [Entitic vol] 89.4 fL Normal 82.0-98.0 [facility] Comment on above: Performed By: #### L [id number] #### [facility] ([facility]) [address] [place] [address] PLATELETS (10*3/UL) IN BLOOD AUTOMATED COUNT 146 10*3/uL Low 150-400 [facility] Comment on above: Performed By: #### L [id number] #### [facility] ([facility]) [address] [place] [address] RBC (Bld) [#/Vol] 3.86 10*6/uL Low 4.20-5.70 [facility] Comment on above: Performed By: #### L [id number] #### [facility] ([facility] [place]) [address] [place] [address] WBC (Bld) [#/Vol] 8.81 10*3/uL Normal 4.00-10.60 [facility] Comment on above: Performed By: #### L [id number] #### [facility] ([facility] [place]) [address] [place] [address] COMPREHENSIVE METABOLIC PANE Michael 01-12-2024 Albumin [Mass/Vol] 3.1 g/dL Low 3.5-5.7 [facility] Comment on above: Performed By: #### L [id number] #### [facility] ([facility] [place]) [address] [place] [address] ALP [Catalytic activity/Vol] 33 U/L Low 34-104 [facility] Comment on above: Performed By: #### L [id number] #### [facility] ([facility] [place]) [address] [place] [address] ALT [Catalytic activity/Vol] 17 U/L Normal 7-52 [facility] Comment on above: Performed By: #### L [id number] #### [facility] ([facility] [place]) [address] [place] [address] Anion gap [Moles/Vol] 11 mmol/L Normal 7-20 [facility] Comment on above: Performed By: #### L [id number] #### [facility] ([facility] [place]) [address] [place] [address] AST [Catalytic activity/Vol] 16 U/L Normal 13-39 [facility] Comment on above: Performed By: #### L [id number] #### [facility] ([facility] [place]) [address] [place] [address] Bilirubin [Mass/Vol] 0.4 mg/dL Normal 0.3-1.0 [facility] Comment on above: Performed By: #### L [id number] #### [facility] ([facility] [place]) [address] [place] [address] Calcium [Mass/Vol] 8.4 mg/dL Low 8.6-10.3 [facility] Comment on above: Performed By: #### L [id number] #### [facility] ([facility] [place]) [address] [address] Chloride [Moles/Vol] 103 mmol/L Normal 98-107 [facility] Comment on above: Performed By: #### L [id number] #### [facility] ([facility] [place]) [address] [place] [address] CO2 [Moles/Vol] 28 mmol/L Normal 21-31 [facility] Comment on above: Performed By: #### L [id number] #### [facility] ([facility] [place]) [address] [place] [address] Creatinine [Mass/Vol] 0.84 mg/dL Normal 0.70-1.30 [facility] Comment on above: Performed By: #### L [id number] #### [facility] ([facility] [place]) [address] [place] [address] GLOMERULAR FILTRATION RATE ML/MIN/1.73 SQ M.PREDICTED 88.7 mL/min/1.73m*2 Normal >60.0 [facility] Comment on above: Result Comment: [facility]???s estimated glomerular filtration rate (eGFR) will [...] [facility] [address] [place] [address] Glucose [Mass/Vol] 85 mg/dL Normal 70-100 [facility] Comment on above: Performed By: #### L [id number] #### [facility] [address] [place] [address] Potassium [Moles/Vol] 4.0 mmol/L Normal 3.5-5.1 [facility] Comment on above: Performed By: #### L [id number] #### [facility] [address] [place] [address] Protein [Mass/Vol] 5.4 g/dL Low 6.0-8.3 [facility] Comment on above: Performed By: #### L [id number] #### [facility] [address] [place] [address] Sodium [Moles/Vol] 138 mmol/L Normal 136-145 [facility] Comment on above: Performed By: #### L [id number] #### [facility] [address] [place] [address] Urea nitrogen [Mass/Vol] 19 mg/dL Normal 7-25 [facility] Comment on above: Performed By: #### L [id number] #### [facility] ([facility] [place] [address] [place] [address] UREA NITROGEN/CREATININE (MASS RATIO) IN SER/PLAS 22.6 Normal [facility] Comment on above: Performed By: #### L [id number] #### [facility] [address] [place] [address] CONSULTon 01-12-2024 CONSULT Reason For Consult: s/p [...] Injury 78 y.o. male who presented to [facility] on 01/09/24 as a transfer from [facility] for symptomatic bradycardia with complete heart block. Patient with a history of dementia, difficulty answering questions thoroughly because of dementia and hearing loss. Majority of history obtained via chart review. Patient with multiple episodes of presyncope reported prior to admission. No clearly documented falls. On arrival to [facility] he was noted to have a heart rate in the 30s. He was transferred to [facility] for Cardiology evaluation and underwent PPM [...] history of COPD (chronic obstructive pulmonary disease) ([facility]), Seizure ([facility]), and Sleep apnea. Past Surgical [...] EOMI. Neurologic: (more content not included)... Normal [facility] CT CERVICAL SPINE WO IV CONT [...] Kan Nicole. Not Vlsuzy Invalid Interpretation Code [facility] Comment on above: Order Comment: Traum [...] Kan Nicole. Not Vldtmat Invalid Interpretation Code [facility] MAGNESIUMon 01-12-2024 Magnesium [Mass/Vol] 2.0 mg/dL Normal 1.9-2.7 [facility] Comment on above: Performed By: #### L [id number] #### [facility] ([facility]) [address] [place] [address] PHOSPHORUSon 01-12-2024 Magnesium [Mass/Vol] 2.1 mg/dL Low 2.5-5.0 [facility] Comment on above: Performed By: #### L [id number] #### [facility] ([facility]) [address] [place] [address] POCT GLUCOSE METER UNSOLICIT ED RESULTSon 01-12-2024 Glucose [Mass/Vol] 153 mg/dL High 70-105 [facility] Comment on above: Order Comment: Waive d Testing in the ED is performed under the ED CLIA certificate #[id number]. Result Comment: [email or web address] Performed By: #### L [id number] #### [facility] ([facility] [place]) [address] [place] [address] Glucose [Mass/Vol] 134 mg/dL High 70-105 [facility] Comment on above: Order Comment: Waive d Testing in the ED is performed under the ED CLIA certificate #[id number]. Result Comment: [email or web address] [email or web address] Performed By: #### L [id number] ####[facility] ([facility] [place])[address] [place] [address] Glucose [Mass/Vol] 210 mg/dL High 70-105 [facility] Comment on above: Order Comment: Waive d Testing in the ED is performed under the ED CLIA certificate #[id number]. Result Comment: emol [email or web address] Performed By: #### L [id number] #### [facility] ([facility]) [address] [place] [address] Glucose [Mass/Vol] 103 mg/dL Normal 70-105 [facility] Comment on above: Order Comment: Waive d Testing in the ED is performed under the ED CLIA certificate #[id number]. Result Comment: [email or web address] [email or web address] Performed By: #### L [id number] #### [facility] ([facility]) [address] [place] [address] 30on 01-11-2024 30 Daily Case Managemen t Update Multidisciplinary rounds have been completed. Barriers to Discharge: 01/10- s/p [facility] DC-PPM. No overnight events. Mentation appears improved/back to baseline. PT OT ordered, from [facility]? Not sure if returning. On RA, would [...] Answer: eval and treat 01/11/24 1347 Normal [facility] AMMONIAon 01-11-2024 AMMONIA (UMOL/L) IN PLASMA 41 umol/L Normal 18-72 [facility] Comment on above: Performed By: #### L [id number] #### [facility] ([facility]) [address] [place] [address] B-TYPE NATRIURETIC PEPTIDEon 01-11-2024 Natriuretic peptide B (Bld) [Mass/Vol] 1312 pg/mL High 0-100 [facility] Comment on above: Performed By: #### L [id number] #### [facility] ([facility]) [address] [place] [address] BASIC METABOLIC PANELon 08- 0 Anion gap [Moles/Vol] 10 mmol/L Normal 7-20 [facility] Comment on above: Performed By: #### L [id number] ####[facility] ([facility])[address] [place] [address] Calcium [Mass/Vol] 8.3 mg/dL Low 8.6-10.3 [facility] Comment on above: Performed By: #### L [id number] ####[facility] [place] [address] Chloride [Moles/Vol] 104 mmol/L Normal 98-107 [facility] Comment on above: Performed By: #### L [id number] ####[facility] [place] [address] CO2 [Moles/Vol] 26 mmol/L Normal 21-31 [facility] Comment on above: Performed By: #### L [id number] ####[facility] [place] [address] Creatinine [Mass/Vol] 0.84 mg/dL Normal 0.70-1.30 [facility] Comment on above: Performed By: #### L [id number] ####[facility] ([facility] [place])[address] [place] [address] GLOMERULAR FILTRATION RATE ML/MIN/1.73 SQ M.PREDICTED 88.7 mL/min/1.73m*2 Normal >60.0 [facility] Comment on above: Result Comment: [facility]???s estimated glomerular filtration rate (eGFR) will [...] ####[facility] [place] [address] Glucose [Mass/Vol] 118 mg/dL High 70-100 [facility] Comment on above: Performed By: #### L [id number] ####[facility] ([facility] [place])[address] [place] [address] Potassium [Moles/Vol] 4.0 mmol/L Normal 3.5-5.1 [facility] Comment on above: Performed By: #### L [id number] ####[facility] ([facility] [place])[address] [place] [address] Sodium [Moles/Vol] 136 mmol/L Normal 136-145 [facility] Comment on above: Performed By: #### L [id number] ####[facility] ([facility])[address] [place] [address] Urea nitrogen [Mass/Vol] 29 mg/dL High 7-25 [facility] Comment on above: Performed By: #### L [id number] ####[facility] ([facility])[address] [place] [address] UREA NITROGEN/CREATININE (MASS RATIO) IN SER/PLAS 34.5 Normal [facility] Comment on above: Performed By: #### L [id number] ####[facility] ([facility])[address] [place] [address] CBC WITH AUTO DIFFERENTIALon 01-11-2024 Basophils (Bld) [#/Vol] 0.04 10*3/uL Normal 0.00-0.20 [facility] Comment on above: Performed By: #### L [id number] #### [facility] ([facility]) [address] [place] [address] Basophils/100 WBC (Bld) 0.5 % Normal 0.0-1.0 [facility] Comment on above: Performed By: #### L [id number] #### [facility] ([facility]) [address] [place] [address] Eosinophils (Bld) [#/Vol] 0.57 10*3/uL High 0.00-0.50 [facility] Comment on above: Performed By: #### L [id number] #### [facility] ([facility]) [address] [place] [address] Eosinophils/100 WBC (Bld) 7.7 % High 0.0-6.0 [facility] Comment on above: Performed By: #### L [id number] #### [facility] ([facility]) [address] [place] [address] Erythrocyte distribution width (RBC) [Ratio] 14.6 % Normal 11.5-15.0 [facility] Comment on above: Performed By: #### L [id number] #### [facility] ([facility]) [address] [place] [address] ERYTHROCYTE MEAN CORPUSCULAR HEMOGLOBIN CONCENTRATION (G/DL) BY AUTOMATED 32.9 g/dL Normal 32.0-35.0 [facility] Comment on above: Performed By: #### L [id number] #### [facility] ([facility]) [address] [place] [address] Hematocrit (Bld) [Volume fraction] 34.0 % Low 39.0-55.0 [facility] Comment on above: Performed By: #### L [id number] #### [facility] [address] [place] [address] Hemoglobin (Bld) [Mass/Vol] 11.2 g/dL Low 13.0-17.0 [facility] Comment on above: Performed By: #### L [id number] #### [facility] [address] [place] [address] Immature granulocytes (Bld) [#/Vol] 0.06 10*3/uL Normal 0.00-0.20 [facility] Comment on above: Performed By: #### L [id number] #### [facility] ([facility]) [address] [place] [address] Immature granulocytes/100 WBC (Bld) 0.8 % Normal 0.0-1.0 [facility] Comment on above: Performed By: #### L [id number] #### [facility] [address] [place] [address] Lymphocytes (Bld) [#/Vol] 0.80 10*3/uL Low 1.20-4.00 [facility] Comment on above: Performed By: #### L [id number] #### [facility] ([facility]) [address] [place] [address] Lymphocytes/100 WBC (Bld) 10.8 % Low 20.0-45.0 [facility] Comment on above: Performed By: #### L [id number] #### [facility] ([facility] [place]) [address] [place] [address] MCH (RBC) [Entitic mass] 28.5 pg Normal 27.0-33.0 [facility] Comment on above: Performed By: #### L [id number] #### [facility] ([facility]) [address] [place] [address] MCV (RBC) [Entitic vol] 86.5 fL Normal 82.0-98.0 [facility] Comment on above: Performed By: #### L [id number] #### [facility] ([facility]) [address] [place] [address] Monocytes (Bld) [#/Vol] 0.70 10*3/uL Normal 0.10-1.00 [facility] Comment on above: Performed By: #### L [id number] #### [facility] ([facility]) [address] [place] [address] Monocytes/100 WBC (Bld) 9.4 % Normal 5.0-12.0 [facility] Comment on above: Performed By: #### L [id number] #### [facility] ([facility]) [address] [place] [address] Neutrophils (Bld) [#/Vol] 5.27 10*3/uL Normal 1.60-7.60 [facility] Comment on above: Performed By: #### L [id number] #### [facility] [address] [place] [address] Neutrophils/100 WBC (Bld) 70.8 % Normal 40.0-72.0 [facility] Comment on above: Performed By: #### L [id number] #### [facility] ([facility] [place]) [address] [place] [address] NRBC (PER 100 WBCS) BY AUTOMATED COUNT 0.0 % Normal 0 [facility] Comment on above: Performed By: #### L [id number] #### [facility] ([facility]) [address] [place] [address] PLATELETS (10*3/UL) IN BLOOD AUTOMATED COUNT 155 10*3/uL Normal 150-400 [facility] Comment on above: Performed By: #### L [id number] #### [facility] ([facility]) [address] [place] [address] RBC (Bld) [#/Vol] 3.93 10*6/uL Low 4.20-5.70 [facility] Comment on above: Performed By: #### L [id number] #### [facility] ([facility]) [address] [place] [address] WBC (Bld) [#/Vol] 7.44 10*3/uL Normal 4.00-10.60 [facility] Comment on above: Performed By: #### L [id number] #### [facility] ([facility]) [address] [address] MAGNESIUMon 01-11-2024 Magnesium [Mass/Vol] 2.3 mg/dL Normal 1.9-2.7 [facility] Comment on above: Performed By: #### L [id number] #### [facility] ([facility]) [address] [place] [address] PHOSPHORUSon 01-11-2024 Magnesium [Mass/Vol] 2.0 mg/dL Low 2.5-5.0 [facility] Comment on above: Performed By: #### L [id number] ####[facility] ([facility] [place] [place] [address] POCT GLUCOSE METER UNSOLICIT ED RESULTSon 01-11-2024 Glucose [Mass/Vol] 151 mg/dL High 70-105 [facility] Comment on above: Order Comment: Waive d Testing in the ED is performed under the ED CLIA certificate #[id number]. Result Comment: rcar ran Performed By: #### L [id number] #### [facility] ([facility] [place]) [address] [place] [address] Glucose [Mass/Vol] 157 mg/dL High 70-105 [facility] Comment on above: Order Comment: Waive d Testing in the ED is performed under the ED CLIA certificate #[id number]. Result Comment: pop wei Performed By: #### L [id number] #### [facility] ([facility]) [address] [place] [address] Glucose [Mass/Vol] 150 mg/dL High 70-105 [facility] Comment on above: Order Comment: Waive d Testing in the ED is performed under the ED CLIA certificate #[id number]. Result Comment: rfog art Performed By: #### L [id number] #### [facility] ([facility]) [address] [place] [address] Glucose [Mass/Vol] 127 mg/dL High 70-105 [facility] Comment on above: Order Comment: Waive d Testing in the ED is performed under the ED CLIA certificate #[id number]. Result Comment: pop wei Performed By: #### L [id number] #### [facility] ([facility]) [address] [place] [address] PROCALCITONIN TESTon 024 PROCALCITONIN IN BLOOD 0.09 ng/mL Normal 0.00-0.10 [facility] Comment on above: Result Comment: Susp ected [...] and initial PCT<0.5ng/mL Performed By: #### L [id number] #### [facility] ([facility]) [address] [place] [address] 30on 01-10-2024 30 Daily Case Managemen t Update Multidisciplinary rounds have been completed. Barriers to Discharge: 01/09- patient came here from [facility] with a complete heart block. (Not sure [...] PT Recommendations: OT Recommendations: New Consults: Jayden [facility] Chapis 01-10-2024 ANES -- Attestation signed [...] 01/10/24 1300 Procedure: Pacemaker DC new Location: [facility] STUDENT [facility] 1 / [facility] ([facility]) Providers: Reno Welch MD [...] attending and fellow. Additional Equipment Requests Normal [facility] BASIC METABOLIC PANELon 12-22 Anion gap [Moles/Vol] 15 mmol/L Normal 7-20 [facility] Comment on above: Performed By: #### L [id number] #### [facility] ([facility]) [address] [place] [address] Calcium [Mass/Vol] 8.4 mg/dL Low 8.6-10.3 [facility] Comment on above: Performed By: #### L [id number] #### [facility] ([facility]) [address] [place] [address] Chloride [Moles/Vol] 97 mmol/L Low 98-107 [facility] Comment on above: Performed By: #### L [id number] #### [facility] ([facility]) [address] [place] [address] CO2 [Moles/Vol] 21 mmol/L Normal 21-31 [facility] Comment on above: Performed By: #### L [id number] #### [facility] ([facility]) [address] [place] [address] Creatinine [Mass/Vol] 1.12 mg/dL Normal 0.70-1.30 [facility] Comment on above: Performed By: #### L [id number] #### [facility] ([facility]) [address] [place] [address] GLOMERULAR FILTRATION RATE ML/MIN/1.73 SQ M.PREDICTED 66.8 mL/min/1.73m*2 Normal >60.0 [facility] Comment on above: Result Comment: [facility]???s estimated glomerular filtration rate (eGFR) will [...] [facility] ([facility] [address] [place] [address] Glucose [Mass/Vol] 212 mg/dL High 70-100 [facility] Comment on above: Performed By: #### L [id number] #### [facility] ([facility]) [address] [place] [address] Potassium [Moles/Vol] 3.9 mmol/L Normal 3.5-5.1 [facility] Comment on above: Performed By: #### L [id number] #### [facility] ([facility]) [address] [place] [address] Sodium [Moles/Vol] 129 mmol/L Low 136-145 [facility] Comment on above: Performed By: #### L [id number] #### [facility] ([facility] [address] [place] [address] Urea nitrogen [Mass/Vol] 56 mg/dL High 7-25 [facility] Comment on above: Performed By: #### L [id number] #### [facility] ([facility] [address] [place] [address] UREA NITROGEN/CREATININE (MASS RATIO) IN SER/PLAS 50.0 Normal [facility] Comment on above: Performed By: #### L [id number] #### [facility] ([facility] [address] [place] [address] CBC WITH AUTO DIFFERENTIALon 01-10-2024 Basophils (Bld) [#/Vol] 0.05 10*3/uL Normal 0.00-0.20 [facility] Comment on above: Performed By: #### L [id number] #### [facility] ([facility] [address] [address] Basophils/100 WBC (Bld) 0.5 % Normal 0.0-1.0 [facility] Comment on above: Performed By: #### L [id number] #### [facility] [address] [place] [address] Eosinophils (Bld) [#/Vol] 0.24 10*3/uL Normal 0.00-0.50 [facility] Comment on above: Performed By: #### L [id number] #### [facility] [address] [place] [address] Eosinophils/100 WBC (Bld) 2.6 % Normal 0.0-6.0 [facility] Comment on above: Performed By: #### L [id number] #### [facility] ([facility] [address] [place] [address] Erythrocyte distribution width (RBC) [Ratio] 14.7 % Normal 11.5-15.0 [facility] Comment on above: Performed By: #### L [id number] #### [facility] ([facility]) [address] [place] [address] ERYTHROCYTE MEAN CORPUSCULAR HEMOGLOBIN CONCENTRATION (G/DL) BY AUTOMATED 32.4 g/dL Normal 32.0-35.0 [facility] Comment on above: Performed By: #### L [id number] #### [facility] ([facility] [address] [place] [address] Hematocrit (Bld) [Volume fraction] 35.2 % Low 39.0-55.0 [facility] Comment on above: Performed By: #### L [id number] #### [facility] ([facility] [address] [place] [address] Hemoglobin (Bld) [Mass/Vol] 11.4 g/dL Low 13.0-17.0 [facility] Comment on above: Performed By: #### L [id number] #### [facility] ([facility] [address] [place] [address] Immature granulocytes (Bld) [#/Vol] 0.13 10*3/uL Normal 0.00-0.20 [facility] Comment on above: Performed By: #### L [id number] #### [facility] [address] [place] [address] Immature granulocytes/100 WBC (Bld) 1.4 % High 0.0-1.0 [facility] Comment on above: Performed By: #### L [id number] #### [facility] [address] [place] [address] Lymphocytes (Bld) [#/Vol] 1.41 10*3/uL Normal 1.20-4.00 [facility] Comment on above: Performed By: #### L [id number] #### [facility] [address] [place] [address] Lymphocytes/100 WBC (Bld) 15.1 % Low 20.0-45.0 [facility] Comment on above: Performed By: #### L [id number] #### [facility] ([facility] [place]) [address] [place] [address] MCH (RBC) [Entitic mass] 28.5 pg Normal 27.0-33.0 [facility] Comment on above: Performed By: #### L [id number] #### [facility] ([facility] [place]) [address] [place] [address] MCV (RBC) [Entitic vol] 88.0 fL Normal 82.0-98.0 [facility] Comment on above: Performed By: #### L [id number] #### [facility] ([facility]) [address] [place] [address] Monocytes (Bld) [#/Vol] 1.04 10*3/uL High 0.10-1.00 [facility] Comment on above: Performed By: #### L [id number] #### [facility] [address] [place] [address] Monocytes/100 WBC (Bld) 11.1 % Normal 5.0-12.0 [facility] Comment on above: Performed By: #### L [id number] #### [facility] ([facility] [place]) [address] [place] [address] Neutrophils (Bld) [#/Vol] 6.49 10*3/uL Normal 1.60-7.60 [facility] Comment on above: Performed By: #### L [id number] #### [facility] ([facility]) [address] [place] [address] Neutrophils/100 WBC (Bld) 69.3 % Normal 40.0-72.0 [facility] Comment on above: Performed By: #### L [id number] #### [facility] [address] [place] [address] NRBC (PER 100 WBCS) BY AUTOMATED COUNT 0.0 % Normal 0 [facility] Comment on above: Performed By: #### L [id number] #### [facility] ([facility]) [address] [place] [address] PLATELETS (10*3/UL) IN BLOOD AUTOMATED COUNT 168 10*3/uL Normal 150-400 [facility] Comment on above: Performed By: #### L [id number] #### [facility] ([facility]) [address] [place] [address] RBC (Bld) [#/Vol] 4.00 10*6/uL Low 4.20-5.70 [facility] Comment on above: Performed By: #### L [id number] #### [facility] ([facility]) [address] [place] [address] WBC (Bld) [#/Vol] 9.36 10*3/uL Normal 4.00-10.60 [facility] Comment on above: Performed By: #### L [id number] #### [facility] ([facility]) [address] [place] [address] CT HEAD WO IV CONTRASTon CT HEAD [...] Orbits are only partially included in the [id number]. Mild mucosal thickening of the paranasal sinuses. [...] Jayro Castro MD. 9 Invalid Interpretation Code [facility] HPon 01-10-2024 HP -- Attestation signed [...] are no changes to the H&P.plan for [facility] today Normal [facility] MAGNESIUMon 01-10-2024 Magnesium [Mass/Vol] 1.7 mg/dL Low 1.9-2.7 [facility] Comment on above: Performed By: #### L [id number] #### [facility] ([facility]) [address] [place] [address] MRSA/MSSA DNA NASALon 2023 MRSA DNA Positive Abnormal Negative [facility] Comment on above: Order Comment: Testi [...] preclude nasal colonization. Performed By: #### L [id number] #### [facility] ([facility]) [address] [place] [address] MSSA DNA Negative Normal Negative [facility] Comment on above: Order Comment: Testi [...] preclude nasal colonization. Performed By: #### L [id number] #### [facility] ([facility]) [address] [place] [address] PHOSPHORUSon 01-10-2024 Magnesium [Mass/Vol] 2.0 mg/dL Low 2.5-5.0 [facility] Comment on above: Performed By: #### L [id number] #### [facility] ([facility]) [address] [place] [address] POCT GLUCOSE METER UNSOLICIT ED RESULTSon 01-10-2024 Glucose [Mass/Vol] 109 mg/dL High 70-105 [facility] Comment on above: Order Comment: Waive d Testing in the ED is performed under the ED CLIA certificate #[id number]. Result Comment: [email or web address] licona Performed By: #### L [id number] #### [facility] [address] [place] [address] Glucose [Mass/Vol] 172 mg/dL High 70-105 [facility] Comment on above: Order Comment: Waive d Testing in the ED is performed under the ED CLIA certificate #[id number]. Result Comment: [email or web address] Performed By: #### L [id number] #### [facility] ([facility]) [address] [place] [address] Glucose [Mass/Vol] 250 mg/dL High 70-105 [facility] Comment on above: Order Comment: Waive d Testing in the ED is performed under the ED CLIA certificate #[id number]. Result Comment: [email or web address] Performed By: #### L [id number] ####[facility] ([facility] [place])[address] [place] [address] Glucose [Mass/Vol] 241 mg/dL High 70-105 [facility] Comment on above: Order Comment: Waive d Testing in the ED is performed under the ED CLIA certificate #[id number]. Result Comment: gisselle licona Performed By: #### L [id number] ####[facility] ([facility] [place])[address] [place] [address] Glucose [Mass/Vol] 227 mg/dL High 70-105 [facility] Comment on above: Order Comment: Waive d Testing in the ED is performed under the ED CLIA certificate #[id number]. Result Comment: gisselle licona Performed By: #### L [id number] #### [facility] ([facility]) [address] [place] [address] URINALYSISon 01-10-2024 BILIRUBIN, TOTAL PRESENCE IN URINE Negative Normal Negative [facility] Comment on above: Order Comment: Micro scopics not performed on urines with negative chemical reactions unless requested on original order. Performed By: #### L [id number] #### [facility] ([facility] [place]) [address] [place] [address] Clarity (U) Clear Normal Clear [facility] Comment on above: Order Comment: Micro scopics not performed on urines with negative chemical reactions unless requested on original order. Performed By: #### L [id number] #### [facility] ([facility]) [address] [place] [address] Color (U) Straw Abnormal Yellow [facility] Comment on above: Order Comment: Micro scopics not performed on urines with negative chemical reactions unless requested on original order. Performed By: #### L [id number] #### [facility] ([facility]) [address] [place] [address] Glucose (U) [Mass/Vol] Negative Normal Negative [facility] Comment on above: Order Comment: Micro scopics not performed on urines with negative chemical reactions unless requested on original order. Performed By: #### L [id number] #### [facility] ([facility]) [address] [place] [address] HEMOGLOBIN PRESENCE IN URINE Negative Normal Negative [facility] Comment on above: Order Comment: Micro scopics not performed on urines with negative chemical reactions unless requested on original order. Performed By: #### L [id number] #### [facility] ([facility]) [address] [place] [address] Ketones Ql (U) Trace Abnormal Negative [facility] Comment on above: Order Comment: Micro scopics not performed on urines with negative chemical reactions unless requested on original order. Performed By: #### L [id number] #### [facility] ([facility]) [address] [place] [address] LEUKOCYTE ESTERASE PRESENCE IN URINE BY TEST STRIP Negative Normal Negative [facility] Comment on above: Order Comment: Micro scopics not performed on urines with negative chemical reactions unless requested on original order. Performed By: #### L [id number] #### [facility] ([facility]) [address] [place] [address] NITRITE PRESENCE IN URINE Negative Normal Negative [facility] Comment on above: Order Comment: Micro scopics not performed on urines with negative chemical reactions unless requested on original order. Performed By: #### L [id number] #### [facility] ([facility]) [address] [place] [address] pH (U) 7.0 [pH] Normal 5.0-8.0 [facility] Comment on above: Order Comment: Micro scopics not performed on urines with negative chemical reactions unless requested on original order. Performed By: #### L [id number] #### [facility] ([facility]) [address] [place] [address] Protein (U) [Mass/Vol] Negative Normal [facility] Comment on above: Order Comment: Micro scopics not performed on urines with negative chemical reactions unless requested on original order. Performed By: #### L [id number] #### [facility] ([facility]) [address] [place] [address] Specific gravity (U) [Rel density] 1.006 Low 1.015-1.020 [facility] Comment on above: Order Comment: Micro scopics not performed on urines with negative chemical reactions unless requested on original order. Performed By: #### L [id number] #### [facility] ([facility]) [address] [place] [address] 30on 01-09-2024 30 The patient is Moderately Stable - Low risk of patient condition declining or worsening The patient's goals for the shift include The clinical goals for the shift include Over the shift, the patient did not make progress toward the following goals. Normal [facility] APTTon 01-09-2024 ACTIVATED PARTIAL THROMBOPLASTIN TIME IN PPP BY COAGULATION ASSAY 25.9 Seconds Normal 25.0-35.0 [facility] Comment on above: Result Comment: Clin ical significance of the APTT is questionable in the presence of heparin. Performed By: #### L [id number] #### [facility] ([facility]) [address] [place] [address] BASIC METABOLIC PANELon 12-22 Anion gap [Moles/Vol] 12 mmol/L Normal 7-20 [facility] Comment on above: Performed By: #### L [id number] ####[facility] ([facility] [place] [address] Calcium [Mass/Vol] 8.9 mg/dL Normal 8.6-10.3 [facility] Comment on above: Performed By: #### L [id number] ####[facility] ([facility] [place] [address] Chloride [Moles/Vol] 101 mmol/L Normal 98-107 [facility] Comment on above: Performed By: #### L [id number] ####[facility] [place] [address] CO2 [Moles/Vol] 27 mmol/L Normal 21-31 [facility] Comment on above: Performed By: #### L [id number] ####[facility] [place] [address] Creatinine [Mass/Vol] 1.33 mg/dL High 0.70-1.30 [facility] Comment on above: Performed By: #### L [id number] ####[facility] [place] [address] GLOMERULAR FILTRATION RATE ML/MIN/1.73 SQ M.PREDICTED 54.4 mL/min/1.73m*2 Low >60.0 [facility] Comment on above: Result Comment: The [facility]???s estimated glomerular filtration rate (eGFR) will [...] ####[facility] [place] [address] Glucose [Mass/Vol] 181 mg/dL High 70-100 [facility] Comment on above: Performed By: #### L [id number] ####[facility] [place] [address] Potassium [Moles/Vol] 4.3 mmol/L Normal 3.5-5.1 [facility] Comment on above: Performed By: #### L [id number] ####[facility] ([facility])[address] [place] [address] Sodium [Moles/Vol] 136 mmol/L Normal 136-145 [facility] Comment on above: Performed By: #### L [id number] ####[facility] ([facility])[address] [place] [address] Urea nitrogen [Mass/Vol] 73 mg/dL High 7-25 [facility] Comment on above: Performed By: #### L [id number] ####[facility] ([facility])[address] [place] [address] UREA NITROGEN/CREATININE (MASS RATIO) IN SER/PLAS 54.9 Normal [facility] Comment on above: Performed By: #### L [id number] ####[facility] [place] [address] BLOOD CULTUREon 01-09-2024 Bacteria identified Cx Nom (Bld) No growth at 5 days Normal [facility] Comment on above: Performed By: #### L [id number] ####[facility] [place] [address] Order Comment: From a different site than #1. Performed By: #### L [id number] #### [facility] [address] [place] [address] CBC WITH AUTO DIFFERENTIALon 01-09-2024 Basophils (Bld) [#/Vol] 0.03 10*3/uL Normal 0.00-0.20 [facility] Comment on above: Performed By: #### L [id number] #### [facility] ([facility]) [address] [place] [address] Basophils/100 WBC (Bld) 0.2 % Normal 0.0-1.0 [facility] Comment on above: Performed By: #### L [id number] #### [facility] ([facility]) [address] [place] [address] Eosinophils (Bld) [#/Vol] 0.30 10*3/uL Normal 0.00-0.50 [facility] Comment on above: Performed By: #### L [id number] #### [facility] ([facility]) [address] [place] [address] Eosinophils/100 WBC (Bld) 2.5 % Normal 0.0-6.0 [facility] Comment on above: Performed By: #### L [id number] #### [facility] ([facility]) [address] [place] [address] Erythrocyte distribution width (RBC) [Ratio] 14.5 % Normal 11.5-15.0 [facility] Comment on above: Performed By: #### L [id number] #### [facility] ([facility]) [address] [place] [address] ERYTHROCYTE MEAN CORPUSCULAR HEMOGLOBIN CONCENTRATION (G/DL) BY AUTOMATED 33.1 g/dL Normal 32.0-35.0 [facility] Comment on above: Performed By: #### L [id number] #### [facility] ([facility]) [address] [place] [address] Hematocrit (Bld) [Volume fraction] 39.6 % Normal 39.0-55.0 [facility] Comment on above: Performed By: #### L [id number] #### [facility] ([facility]) [address] [place] [address] Hemoglobin (Bld) [Mass/Vol] 13.1 g/dL Normal 13.0-17.0 [facility] Comment on above: Performed By: #### L [id number] #### [facility] [address] [place] [address] Immature granulocytes (Bld) [#/Vol] 0.10 10*3/uL Normal 0.00-0.20 [facility] Comment on above: Performed By: #### L [id number] #### [facility] ([facility] [place]) [address] [place] [address] Immature granulocytes/100 WBC (Bld) 0.8 % Normal 0.0-1.0 [facility] Comment on above: Performed By: #### L [id number] #### [facility] ([facility] [place]) [address] [place] [address] Lymphocytes (Bld) [#/Vol] 1.37 10*3/uL Normal 1.20-4.00 [facility] Comment on above: Performed By: #### L [id number] #### [facility] ([facility] [place]) [address] [place] [address] Lymphocytes/100 WBC (Bld) 11.4 % Low 20.0-45.0 [facility] Comment on above: Performed By: #### L [id number] #### [facility] ([facility] [place]) [address] [place] [address] MCH (RBC) [Entitic mass] 29.0 pg Normal 27.0-33.0 [facility] Comment on above: Performed By: #### L [id number] #### [facility] ([facility] [place]) [address] [place] [address] MCV (RBC) [Entitic vol] 87.6 fL Normal 82.0-98.0 [facility] Comment on above: Performed By: #### L [id number] #### [facility] [address] [place] [address] Monocytes (Bld) [#/Vol] 0.86 10*3/uL Normal 0.10-1.00 [facility] Comment on above: Performed By: #### L [id number] #### [facility] ([facility]) [address] [place] [address] Monocytes/100 WBC (Bld) 7.1 % Normal 5.0-12.0 [facility] Comment on above: Performed By: #### L [id number] #### [facility] ([facility] [place]) [address] [address] Neutrophils (Bld) [#/Vol] 9.41 10*3/uL High 1.60-7.60 [facility] Comment on above: Performed By: #### L [id number] #### [facility] ([facility] [place]) [address] [address] Neutrophils/100 WBC (Bld) 78.0 % High 40.0-72.0 [facility] Comment on above: Performed By: #### L [id number] #### [facility] ([facility]) [address] [address] NRBC (PER 100 WBCS) BY AUTOMATED COUNT 0.0 % Normal 0 [facility] Comment on above: Performed By: #### L [id number] #### [facility] ([facility] [place]) [address] [address] PLATELETS (10*3/UL) IN BLOOD AUTOMATED COUNT 235 10*3/uL Normal 150-400 [facility] Comment on above: Performed By: #### L [id number] #### [facility] ([facility]) [address] [address] RBC (Bld) [#/Vol] 4.52 10*6/uL Normal 4.20-5.70 [facility] Comment on above: Performed By: #### L [id number] #### [facility] ([facility]) [address] [address] WBC (Bld) [#/Vol] 12.07 10*3/uL High 4.00-10.60 [facility] Comment on above: Performed By: #### L [id number] #### [facility]) [address] [place] [address] CONSULTon 01-09-2024 CONSULT -- Attestation signed by [...] 78-year-old man who is transferred from the [facility] for complete heart block. This was discovered at the half-way where he resides when the nurses noted [...] instead proceed with dual-chamber pacemaker placement tomorrow inspector scales. We will check an echocardiogram prior to [...] significant for dementia has been transferred from [facility] due to high degree AV block. The patient is unable to answer questions appropriately due to his dementia so history was only taken by the signout received from [place]. The patient was noted to have multiple episodes of presyncope over the last few days and today his heart rate was noted to be in 30s upon their initial evaluation. EKG showed a complete A-V dissociation. When he arrived to [facility] MICU, his HR was in low 30s. Dopamine was increased to 10 and started on Isuprel which improved heart rate to mid to high 40s. Patient remained hemodynamically stable. Cardiology ROS: Negative except as mentioned. Past Medical History He has a past medical history of COPD (chronic obstructive pulmonary disease) ([facility]), Seizure ([facility]), and Sleep apnea. Surgical History [...] at bedtime. Do (more content not included)... [facility] 01-09-2024 -- Attestation signed by Jermaine Valenzuela [...] 78-year-old man who is transferred from the [facility] for complete heart block. This was discovered at the half-way where he resides when the nurses noted [...] instead proceed with dual-chamber pacemaker placement tomorrow inspector scales. We will check an echocardiogram prior to [...] significant for dementia has been transferred from [facility] due to high degree AV block. The patient is unable to answer questions appropriately due to his dementia so history was only taken by the signout received from [place]. The patient was noted to have multiple episodes of presyncope over the last few days and today his heart rate was noted to be in 30s upon their initial evaluation. EKG showed a complete A-V dissociation. When he arrived to [facility], his HR was in low 30s. Dopamine was increased to 10 and started on Isuprel which improved heart rate to mid to high 40s. Patient remained hemodynamically stable. Cardiology ROS: Negative except as mentioned. Past Medical History He has a past medical history of COPD (chronic obstructive pulmonary disease) (CMS/HCC), Seizure (CMS/[facility]), and Sleep apnea. Surgical History [...] bedtime. Do (more content not included)... Normal [facility] HP -- Attestation signed by Donnie [...] - 78 y.o. - 1945 N - [id number] [facility] # - [id number] Date of Admission - 01/09/2024 1:24 AM Chief Complaint Third-degree heart block History of Present Illness Clyde Humphrey is a 78-year-old gentleman with past medical history significant for dementia has been transferred from [facility] due to high degree AV block. The patient is unable to answer questions appropriately due to his dementia so history was only taken by the signout received from [place]. The patient was noted to have multiple episodes of presyncope over the last few days and today his heart rate was noted to be in 30s upon their initial evaluation. EKG showed a complete A-V dissociation after which thick reached out to [facility] cardiology for possible pacemaker placement. Due to significant bradycardia the patient is being transferred to [facility] ICU for close hemodynamic monitoring and [...] 5,000 Units, 5,000 Units, subcutaneous, q8h [facility] insulin lispro (HumaLOG) injection 0-5 Units, 0-5 Units, subcutaneous, q6h [facility], Art Suh MD isoproterenol (Isuprel) 1,000 mcg [...] days L (more content not included)... Normal [facility] MAGNESIUMon 01-09-2024 Magnesium [Mass/Vol] 1.9 mg/dL Normal 1.9-2.7 [facility] Comment on above: Performed By: #### L [id number] ####[facility] ([facility])[address] [place] [address] PHOSPHORUSon 01-09-2024 Magnesium [Mass/Vol] 3.2 mg/dL Normal 2.5-5.0 [facility] Comment on above: Performed By: #### L [id number] ####[facility] ([facility])[address] [place] [address] POCT GLUCOSE METER UNSOLICIT ED RESULTSon 01-09-2024 Glucose [Mass/Vol] 219 mg/dL High 70-105 [facility] Comment on above: Order Comment: Waive d Testing in the ED is performed under the ED CLIA certificate #[id number]. Result Comment: nlad oos Performed By: #### L [id number] #### [facility] ([facility]) [address] [place] [address] Glucose [Mass/Vol] 234 mg/dL High 70-105 [facility] Comment on above: Order Comment: Waive d Testing in the ED is performed under the ED CLIA certificate #[id number]. Result Comment: nlad oos Performed By: #### L [id number] #### [facility] ([facility]) [address] [place] [address] PROTIME-INRon 01-09-2024 INR IN PPP BY COAGULATION ASSAY 0.98 Normal 0.90-1.10 [facility] Comment on above: Result Comment: ACCC [...] ####[facility] ([facility])[address] [place] [address] PROTHROMBIN TIME (PT) IN PPP BY COAGULATION ASSAY 13.0 Seconds Normal 12.3-14.8 [facility] Comment on above: Performed By: #### L [id number] ####[facility] ([facility])[address] [place] [address] TROPONIN Ion 01-09-2024 Troponin I.cardiac [Mass/Vol] 0.06 ng/mL High 0.00-0.04 [facility] Comment on above: Performed By: #### L [id number] ####[facility] ([facility] [place] [place] [address] Insurance Correspondenceon 1 05-25-2022 Insurance Correspondence [id number]#1. 00TIFF Normal [facility] Coding Queryon 02-17-2023 Coding Query Normal [facility] Discharge Instructionson Discharge Instructions [id number]#1. 00CD:127 Normal [facility] Transfer Documentson 023 Transfer Documents [id number]#1. 00CD:127 Normal [facility] Discharge Note-Nursingon Discharge Note-Nursing Normal [facility] Interdisciplinary Note - Santosh e Manageron 01-23-2023 Interdisciplinary Note - Grain Spouter Normal [facility] Comment on above: Result Comment: Elec tronically Signed By: Norma Garcia RN\.br\Date and Time Signed: 01/23/23 16:29 EDT Progress Note-Physicianon Progress Note-Physician Normal F [facility] Comment on above: Result Comment: Elec tronically Signed By: New Johnson DO.br\Date and Time Signed: 01/23/23 09:50 EDT Auto Diffon 01-22-2023 Basophils/100 WBC (Bld) 0.7 % Normal 0.0-2.0 [facility] Comment on above: Order Comment: Order Added by Discern Expert. Performed By: #### 2 600328, 20654737, 7138325, 2443134 ####[address] [address] Basophils/Leukocytes Auto (Bld) [Pure # fraction] 0.1 E9/L Normal 0.0-0.2 [facility] Comment on above: Order Comment: Order Added by Discern Expert. Performed By: #### 2 639330, 87294354, 3048748, 0249193 ####[address] [address] Eosinophils/100 WBC (Bld) 9.3 % High 0.0-8.0 [facility] Comment on above: Order Comment: Order Added by Discern Expert. Performed By: #### 2 424095, 08383267, 9551252, 6975690 ####[address] [address] Eosinophils/Leukocytes Auto (Bld) [Pure # fraction] 0.8 E9/L High 0.0-0.5 [facility] Comment on above: Order Comment: Order Added by Discern Expert. Performed By: #### 2 449402, 62520201, 1021797, 0004584 ####[address] [address] Lymphocytes/100 WBC (Bld) 17.2 % Normal 14.0-50.0 [facility] Comment on above: Order Comment: Order Added by Discern Expert. Performed By: #### 2 143364, 80178541, 0819616, 2714576 ####[address] [address] Lymphocytes/Leukocytes Auto (Bld) [Pure # fraction] 1.4 E9/L Normal 1.0-4.0 [facility] Comment on above: Order Comment: Order Added by Discern Expert. Performed By: #### 2 636816, 62726167, 1622688, 8111853 ####[facility] [address] [place] [address] Monocytes/100 WBC (Bld) 10.0 % Normal 4.0-14.0 [facility] Comment on above: Order Comment: Order Added by Discern Expert. Performed By: #### 2 110759, 25479774, 4518586, 1269089 ####[address] [place] [address] Monocytes/Leukocytes Auto (Bld) [Pure # fraction] 0.8 E9/L Normal 0.2-1.0 [facility] Comment on above: Order Comment: Order Added by Discern Expert. Performed By: #### 2 036437, 20966551, 7188072, 7287751 ####[address] [address] Neutrophils/100 WBC (Bld) 62.8 % Normal 36.0-75.0 [facility] Comment on above: Order Comment: Order Added by Discern Expert. Performed By: #### 2 738280, 30851796, 7943852, 9058330 ####[address] [address] Neutrophils/Leukocytes Auto (Bld) [Pure # fraction] 5.2 E9/L Normal 2.0-7.5 [facility] Comment on above: Order Comment: Order Added by Discern Expert. Performed By: #### 2 735532, 67437610, 4206921, 4323254 ####[address] [place] [address] CBC w/ Auto Diffon 3 Erythrocyte distribution width (RBC) [Ratio] 15.2 % High 10.9-14.2 [facility] Comment on above: Performed By: #### 2 960116, 90827627, 6228734, 8663134 ####[address] [place] [address] Hematocrit (Bld) [Volume fraction] 43.1 % Normal 37.7-49.0 [facility] Comment on above: Performed By: #### 2 800097, 39131833, 7113377, 4001119 ####[address] [address] Hemoglobin (Bld) [Mass/Vol] 14.6 g/dL Normal 13.5-17.5 [facility] Comment on above: Performed By: #### 2 348998, 87195170, 3811588, 4841830 ####[address] [address] MCH (RBC) [Entitic mass] 28.1 pg Normal 27.0-34.0 [facility] Comment on above: Performed By: #### 2 396831, 02787774, 1106219, 9403811 ####[address] [address] MCHC (RBC) [Mass/Vol] 33.8 g/dL Normal 31.4-36.0 [facility] Comment on above: Performed By: #### 2 737130, 98773575, 5971930, 6264592 ####[address] [address] MCV (RBC) [Entitic vol] 83.2 fL Normal 80.0-100.0 [facility] Comment on above: Performed By: #### 2 489888, 85209443, 1244140, 7823365 ####[address] [address] Platelet mean volume (Bld) [Entitic vol] 8.6 fL Normal 6.4-10.8 [facility] Comment on above: Performed By: #### 2 856215, 54872924, 3103451, 6222923 ####[address] [address] Platelets (Bld) [#/Vol] 221.0 E9/L Normal 150.0-500.0 [facility] Comment on above: Performed By: #### 2 153308, 57735301, 3864306, 2912137 ####[facility] [address] [place] [address] RBC (Bld) [#/Vol] 5.2 E12/L Normal 4.3-5.9 [facility] Comment on above: Performed By: #### 2 716732, 34432083, 0575425, 8972285 ####[facility] [address] [place] [address] WBC corrected for nucl RBC Auto (Bld) [#/Vol] 8.3 E9/L Normal 4.0-11.0 [facility] Comment on above: Performed By: #### 2 161850, 30353310, 7225126, 6218906 ####[facility] [address] [place] [address] CHEMISTRYOrdered By: Lab ROP User on 01-22-2023 Glucose [Mass/Vol] 121 mg/dL High 55 - 99 mg/dL [facility] POC Subsection Comment on above: Result Comment: Gareth guerrero RN/ POC Device SN [id number] Invalid Interpretation Code [facility] Subsection POC User ID [id number] Invalid Interpretation Code [facility] Subsection POC Username LATONIA MALHOTRA Invalid Interpretation Code [facility] Subsection CHEMISTRYOrdered By: SYSTEM SYSTEM on [...] 56 mL/min/1.73 m2 Low >=59mL/min/ 1.73 m2 [facility] Chem S Globulin (S) [Mass/Vol] 3.6 g/dL [...] [Mass/Vol] 3.7 g/dL Normal 3.3-5.0 [facility] Comment on above: Performed By: #### 2 704928, 64575691, 2534638, 6039499 ####[facility] [address] [place] [address] Albumin/Globulin (S) [Mass conc ratio] 1.0 Low 1.1-2.2 [facility] Comment on above: Performed By: #### 2 968781, 89530159, 4616814, 4427101 ####[facility] [address] [place] [address] ALP [Catalytic activity/Vol] 47 Int._Unit/L Normal 21-98 [facility] Comment on above: Performed By: #### 2 194825, 42700383, 1291680, 1723767 ####[facility] [address] [place] [address] ALT No additional P-5'-P [Catalytic activity/Vol] 21 Int._Unit/L Normal 6-46 [facility] Comment on above: Performed By: #### 2 535301, 47884119, 6089956, 0094364 ####[facility] [address] [place] [address] Anion gap [Moles/Vol] 15 mmol/L Normal 6-16 [facility] Comment on above: Performed By: #### 2 986889, 88590309, 3640300, 6059554 ####[facility] [address] [place] [address] AST [Catalytic activity/Vol] 21 Int._Unit/L Normal 5-43 [facility] Comment on above: Performed By: #### 2 124439, 65708914, 0727920, 5495573 ####[facility] [address] [place] [address] Bilirubin [Mass/Vol] 0.8 mg/dL Normal 0.0-1.1 [facility] Comment on above: Performed By: #### 2 054684, 08328856, 0825876, 5351824 ####[facility] [address] [place] [address] Calcium [Mass/Vol] 9.6 mg/dL Normal 8.9-11.1 [facility] Comment on above: Performed By: #### 2 544267, 62277969, 3233956, 8851821 ####[facility] [address] [place] [address] Chloride [Moles/Vol] 97 mmol/L Low 101-111 [facility] Comment on above: Performed By: #### 2 717167, 46760009, 1005730, 5458229 ####[facility] [address] [place] [address] CO2 [Moles/Vol] 30 mmol/L Normal 21-31 [facility] Comment on above: Performed By: #### 2 246047, 61324262, 7702211, 0064853 ####[facility] [address] [place] [address] Creatinine [Mass/Vol] 1.3 mg/dL Normal 0.5-1.3 [facility] Comment on above: Performed By: #### 2 326308, 86553001, 8412814, 5735139 ####[facility] [address] [place] [address] Globulin (S) [Mass/Vol] 3.6 g/dL Normal 1.4-4.0 [facility] Comment on above: Performed By: #### 2 187883, 42425218, 5362179, 1819492 ####[facility] [address] [place] [address] Glucose [Mass/Vol] 124 mg/dL Normal 55-199 [facility] Comment on above: Result Comment: If t his glucose result represents a fasting glucose, interpretation should refer to the following reference range: 55-99 mg/dL Performed By: #### 2 681066, 79997081, 4408901, 9698956 ####[facility] [address] [place] [address] Potassium [Moles/Vol] 4.0 mmol/L Normal 3.5-5.3 [facility] Comment on above: Performed By: #### 2 887743, 45455907, 8431854, 1989863 ####[facility] [address] [place] [address] Protein [Mass/Vol] 7.3 g/dL Normal 6.0-7.8 [facility] Comment on above: Performed By: #### 2 000707, 48197590, 4274629, 4441846 ####[facility] [address] [place] [address] Sodium [Moles/Vol] 138 mmol/L Normal 135-145 [facility] Comment on above: Performed By: #### 2 710229, 23650087, 6378572, 9761636 ####[facility] [address] [place] [address] Urea nitrogen [Mass/Vol] 42 mg/dL High 5-21 [facility] Comment on above: Performed By: #### 2 733766, 98043060, 2134423, 3357688 ####[facility] [address] [place] [address] Urea nitrogen/Creatinine [Mass ratio] 32 No Units High 10-20 [facility] Comment on above: Performed By: #### 2 883939, 32603142, 5071517, 3490350 ####[facility] [address] [place] [address] Capillary Glucose POCon Glucose [Mass/Vol] 121 mg/dL High 55-99 [facility] Comment on above: Result Comment: Gareth guerrero RN/ Performed By: #### 2 60975037 ####[facility] [address] [place] [address] Coding Queryon 01-22-2023 Coding Query Normal [facility] HEMATOLOGYOrdered By: SYSTEM SYSTEM on 01-22-2023 [...] Correspondence Off ice 01-22-2023 Insurance Correspondence Office [id number]#1.0 0CD:127 Normal [facility] Interdisciplinary Note - Santosh e Manageron 01-22-2023 Interdisciplinary Note - Grain Spouter Normal [facility] Comment on above: Result Comment: Elec tronically Signed By: Natalie Grant\.br\Date and Time Signed: 01/22/23 11:13 EDT Interdisciplinary Note - Murphy n 01-22-2023 Interdisciplinary Note - OT Normal [facility] Interdisciplinary Note - PTo n 01-22-2023 Interdisciplinary Note - PT Normal [facility] Message from Medicareon Message from Medicare [id number]#1.0 0CD:127 Normal [facility] Progress Note-Physicianon Progress Note-Physician Normal F [facility] Comment on above: Result Comment: Elec tronically Signed By: New Johnson DO\Date and Time Signed: 01/22/23 14:15 EDT eGFRon 01-22-2023 GFR/1.73 sq M.predicted among non-blacks MDRD (S/P/Bld) [Vol rate/Area] 56 mL/min/1.73 m2 Low >=59 [facility] Comment on above: Order Comment: Order added by Discern Expert. Result Comment: Repair Supervisor earnest kidney disease could be indicated at eGFR's of less than 60 mL/min/1.73m2. Kidney failure is indicated at less than 15 mL/min/1.73m2. Performed By: #### 2 479889, 00760940, 8659381, 5315789 ####[facility] [address] [place] [address] Auto Diffon 01-21-2023 Basophils/100 WBC (Bld) 0.9 % Normal 0.0-2.0 F [facility] Comment on above: Order Comment: Order Added by Discern Expert. Performed By: #### 2 978691, 8575022, 57431062, 56499471, 9087370, 9485357 ####[facility] [address] [place] [address] Basophils/Leukocytes Auto (Bld) [Pure # fraction] 0.1 E9/L Normal 0.0-0.2 [facility] Comment on above: Order Comment: Order Added by Discern Expert. Performed By: #### 2 342939, 0724035, 18076873, 02287147, 8981390, 1243695 ####[address] [place] [address] Eosinophils/100 WBC (Bld) 3.3 % Normal 0.0-8.0 [facility] Comment on above: Order Comment: Order Added by Discern Expert. Performed By: #### 2 480250, 9696557, 54678664, 22279378, 8814756, 0314252 ####[address] [place] [address] Eosinophils/Leukocytes Auto (Bld) [Pure # fraction] 0.4 E9/L Normal 0.0-0.5 [facility] Comment on above: Order Comment: Order Added by Discern Expert. Performed By: #### 2 357013, 8072483, 83794431, 92019671, 0765472, 8524310 ####[address] [address] Lymphocytes/100 WBC (Bld) 10.4 % Low 14.0-50.0 [facility] Comment on above: Order Comment: Order Added by Discern Expert. Performed By: #### 2 672399, 1568233, 45038729, 88430694, 8180752, 6175651 ####[facility] [address] [place] [address] Lymphocytes/Leukocytes Auto (Bld) [Pure # fraction] 1.2 E9/L Normal 1.0-4.0 [facility] Comment on above: Order Comment: Order Added by Discern Expert. Performed By: #### 2 780182, 1739787, 68283328, 56487539, 5516516, 5769105 ####[address] [place] [address] Monocytes/100 WBC (Bld) 7.4 % Normal 4.0-14.0 [facility] Comment on above: Order Comment: Order Added by Discern Expert. Performed By: #### 2 868431, 0297701, 94352648, 48164465, 8393675, 2047937 ####[facility] [address] [place] [address] Monocytes/Leukocytes Auto (Bld) [Pure # fraction] 0.9 E9/L Normal 0.2-1.0 [facility] Comment on above: Order Comment: Order Added by Discern Expert. Performed By: #### 2 256694, 5130215, 94001581, 47672553, 2680236, 8793075 ####[facility] [address] [place] [address] Neutrophils/100 WBC (Bld) 78.0 % High 36.0-75.0 [facility] Comment on above: Order Comment: Order Added by Discern Expert. Performed By: #### 2 415467, 4982218, 90525799, 04473627, 7089063, 5519609 ####[facility] [address] [place] [address] Neutrophils/Leukocytes Auto (Bld) [Pure # fraction] 9.1 E9/L High 2.0-7.5 [facility] Comment on above: Order Comment: Order Added by Discern Expert. Performed By: #### 2 969472, 1382050, 01323033, 09284596, 1674209, 3614247 ####[facility] [address] [place] [address] BMPon 01-21-2023 Creatinine [Mass/Vol] 1.2 mg/dL Normal 0.5-1.3 [facility] Comment on above: Performed By: #### 2 868350, 0284470, 75778988, 94134860, 9728965, 6461253 ####[facility] [address] [place] [address] Urea nitrogen [Mass/Vol] 38 mg/dL High 5-21 [facility] Comment on above: Performed By: #### 2 478992, 2392478, 08017543, 25975040, 1322616, 4574037 ####[facility] [address] [place] [address] Urea nitrogen/Creatinine [Mass ratio] 32 No Units High 10-20 [facility] Comment on above: Performed By: #### 2 933129, 9352067, 84560032, 58421809, 8930404, 6756475 ####[facility] [address] [place] [address] Anion gap [Moles/Vol] 14 mmol/L Normal 6-16 [facility] Comment on above: Performed By: #### 2 606943, 2962859, 69909214, 34424894, 4460477, 3028954 ####[facility] [address] [place] [address] Calcium [Mass/Vol] 9.9 mg/dL Normal 8.9-11.1 [facility] Comment on above: Performed By: #### 2 487114, 7784645, 67430150, 17713726, 5002634, 5374083 ####[facility] [address] [place] [address] Chloride [Moles/Vol] 95 mmol/L Low 101-111 [facility] Comment on above: Performed By: #### 2 325333, 0641548, 34017805, 60148178, 4777160, 6965095 ####[facility] [address] [place] [address] CO2 [Moles/Vol] 31 mmol/L Normal 21-31 [facility] Comment on above: Performed By: #### 2 796629, 1857073, 88956780, 12100583, 0405832, 0201490 ####[facility] [address] [place] [address] Glucose [Mass/Vol] 124 mg/dL Normal 55-199 [facility] Comment on above: Result Comment: If t his glucose result represents a fasting glucose, interpretation should refer to the following reference range: 55-99 mg/dL Performed By: #### 2 461469, 2552810, 54945303, 95218799, 2868160, 5892449 ####[facility] [address] [place] [address] Potassium [Moles/Vol] 4.3 mmol/L Normal 3.5-5.3 [facility] Comment on above: Performed By: #### 2 556276, 2243528, 98984617, 66793071, 7818146, 3154891 ####[facility] [address] [place] [address] Sodium [Moles/Vol] 136 mmol/L Normal 135-145 [facility] Comment on above: Performed By: #### 2 118015, 1340235, 01885785, 92320968, 1682238, 0986310 ####[address] [address] CBC w/ Auto Diffon 3 Erythrocyte distribution width (RBC) [Ratio] 15.4 % High 10.9-14.2 [facility] Comment on above: Performed By: #### 2 870550, 4777867, 62594946, 34065757, 9960474, 3932669 ####[address] [place] [address] Hematocrit (Bld) [Volume fraction] 42.5 % Normal 37.7-49.0 [facility] Comment on above: Performed By: #### 2 522444, 3858945, 46392663, 94646473, 0866873, 7250936 ####[facility] [address] [place] [address] Hemoglobin (Bld) [Mass/Vol] 13.9 g/dL Normal 13.5-17.5 [facility] Comment on above: Performed By: #### 2 044651, 3926681, 05911845, 58277958, 4306329, 0530869 ####[facility] [address] [place] [address] MCH (RBC) [Entitic mass] 27.3 pg Normal 27.0-34.0 [facility] Comment on above: Performed By: #### 2 035694, 8303121, 50401099, 86134144, 9303947, 1886908 ####[address] [address] MCHC (RBC) [Mass/Vol] 32.7 g/dL Normal 31.4-36.0 [facility] Comment on above: Performed By: #### 2 018125, 9713967, 75020902, 44265115, 4059873, 4890556 ####[address] [address] MCV (RBC) [Entitic vol] 83.4 fL Normal 80.0-100.0 F [facility] Comment on above: Performed By: #### 2 090733, 8597046, 31763916, 36226070, 3824909, 2971326 ####[facility] [address] [place] [address] Platelet mean volume (Bld) [Entitic vol] 8.6 fL Normal 6.4-10.8 [facility] Comment on above: Performed By: #### 2 088866, 7886148, 34931560, 92306404, 6449853, 5968294 ####[address] [address] Platelets (Bld) [#/Vol] 252.0 E9/L Normal 150.0-500.0 [facility] Comment on above: Performed By: #### 2 932617, 3518642, 94732950, 87253198, 6606656, 5454135 ####[address] [address] RBC (Bld) [#/Vol] 5.1 E12/L Normal 4.3-5.9 [facility] Comment on above: Performed By: #### 2 900130, 9561378, 41970766, 94986558, 7053088, 0758533 ####[facility] [address] [place] [address] WBC corrected for nucl RBC Auto (Bld) [#/Vol] 11.6 E9/L High 4.0-11.0 [facility] Comment on above: Performed By: #### 2 752331, 4363216, 00013480, 85136633, 6530740, 3834567 ####[facility] [address] [place] [address] CHEMISTRYOrdered By: SYSTEM SYSTEM on 01-21-2023 Troponin [...] 62 mL/min/1.73 m2 Normal >=59mL/min/ 1.73 m2 [facility] Chem S Globulin (S) [Mass/Vol] 3.8 g/dL [...] Treatmenton 12-24 Consent for Treatment [id number]#1.0 0CD:127 Normal [facility] ED Clinical Summaryon 2022 ED Clinical Summary Normal [facility] ED Note-Physicianon 01-22-20 23 ED Note-Physician Normal [facility] Comment on above: Result Comment: Elec tronically Signed By: Gustavo Yusuf DO.br\Date and Time Signed: 01/21/23 19:26 EDT ED Patient Education Noteon 01-21-2023 ED Patient Education Note Normal [facility] ED Patient Summaryon 023 ED Patient Summary Normal [facility] HEMATOLOGYOrdered By: SYSTEM SYSTEM on 01-21-2023 [...] 8.6 fL Normal 6.4 - 10.8 fL [facility] HemeAutoSS Platelets (Bld) [#/Vol] 252.0 E9/L Normal 150. 0 - 500.0 E9/L [facility] HemeAutoSS RBC (Bld) [#/Vol] 5.1 E12/L Normal 4.3 - 5.9 E12/L [facility] HemeAutoSS WBC corrected for nucl RBC Auto (Bld) [#/Vol] 11.6 E9/L High 4.0 - 11.0 E9/L [facility] HemeAutoSS Hep Func Panelon 01-21-2023 Bilirubin.direct [Mass/Vol] 0.1 mg/dL Normal 0.1-0.4 [facility] Comment on above: Performed By: #### 2 502176, 9073003, 76201242, 48070265, 6533476, 8983072 ####[facility] [address] [place] [address] Bilirubin.indirect [Mass or moles/Vol] 0.8 mg/dL Normal 0.1-0.9 [facility] Comment on above: Performed By: #### 2 729625, 6976182, 01876508, 76704089, 8949216, 9659911 ####[facility] [address] [place] [address] Albumin [Mass/Vol] 3.9 g/dL Normal 3.3-5.0 [facility] Comment on above: Performed By: #### 2 631475, 6199272, 55600606, 92207006, 7776458, 8175456 ####[facility] [address] [place] [address] Albumin/Globulin (S) [Mass conc ratio] 1.0 Low 1.1-2.2 [facility] Comment on above: Performed By: #### 2 458200, 1240883, 48991634, 04343609, 3082377, 6436775 ####[facility] [address] [place] [address] ALP [Catalytic activity/Vol] 50 Int._Unit/L Normal 21-98 [facility] Comment on above: Performed By: #### 2 819760, 4427081, 20393305, 88901933, 1972022, 0139998 ####[facility] [address] [place] [address] ALT No additional P-5'-P [Catalytic activity/Vol] 23 Int._Unit/L Normal 6-46 [facility] Comment on above: Performed By: #### 2 602741, 6084248, 89675418, 13718733, 0247715, 5466200 ####[facility] [address] [place] [address] AST [Catalytic activity/Vol] 22 Int._Unit/L Normal 5-43 [facility] Comment on above: Performed By: #### 2 652871, 9017215, 94719153, 28269363, 0646079, 5342012 ####[facility] [address] [place] [address] Bilirubin [Mass/Vol] 0.9 mg/dL Normal 0.0-1.1 [facility] Comment on above: Performed By: #### 2 575194, 4366593, 50607960, 72257512, 9272198, 5370667 ####[facility] [address] [place] [address] Globulin (S) [Mass/Vol] 3.8 g/dL Normal 1.4-4.0 [facility] Comment on above: Performed By: #### 2 593582, 5328887, 10142389, 64799426, 3510686, 9152855 ####[facility] [address] [place] [address] Protein [Mass/Vol] 7.7 g/dL Normal 6.0-7.8 [facility] Comment on above: Performed By: #### 2 260177, 4299484, 03725167, 97449224, 2880812, 5626155 ####[facility] [address] [place] [address] Penitentiary Recordson 01-21 Penitentiary Records [id number] 00CD:127 Normal [facility] Troponin 0 Hr.on 01-21-2023 Troponin I.cardiac [Mass/Vol] 25.50 pg/mL Normal 15.90-38.40 [facility] Comment on above: Result Comment: The 95% CI (Confidence Interval) PPV (Positive Predictive Value) for myocardial infarction in females is 38 pg/mL, in males 51 pg/mL. The results should be used in conjunction with clinical conditions of myocardial infarction.([employer] High Sensitivity Troponin I Instructions For Use, ReferralMD, December 2017) Performed By: #### 2 781181, 8581323, 26782027, 56642704, 7998513, 4537688 ####[address] [address] Troponin 3 Hr.on 01-21-2023 Troponin I.cardiac [Mass/Vol] 23.90 pg/mL Normal 15.90-38.40 [facility] Comment on above: Result Comment: The 95% CI (Confidence Interval) PPV (Positive Predictive Value) for myocardial infarction in females is 38 pg/mL, in males 51 pg/mL. The results should be used in conjunction with clinical conditions of myocardial infarction.([employer] High Sensitivity Troponin I Instructions For Use, ReferralMD, December 2017) Performed By: #### 1 7743884 ####[facility] [address] [place] [address] UA With Cult Reflexon 2022 Bilirubin Ql (U) Negative Normal Negative [facility] Comment on above: Performed By: #### 1 8942804 ####[facility] [address] [place] [address] Clarity (U) CLEAR Normal Clear [facility] Comment on above: Performed By: #### 1 8008590 ####[facility] [address] [place] [address] Color (U) STRAW Abnormal Yellow [facility] Comment on above: Performed By: #### 1 1007884 ####Tanner [address] [address] Epithelial cells.squamous LM.HPF (Urine sed) [#/Area] 0-2 Normal 0-2 [facility] Comment on above: Performed By: #### 1 5279100 ####[address] [address] Glucose Test strip (U) [Mass/Vol] Negative Normal Negative [facility] Comment on above: Performed By: #### 1 5051897 ####[address] [address] Hemoglobin Ql (U) Negative Normal Negative [facility] Comment on above: Performed By: #### 1 9136425 ####[address] [address] Ketones (U) [Mass/Vol] Negative Normal Negative [facility] Comment on above: Performed By: #### 1 8265227 ####[address] [address] [place].plasma/[place].R BC (Bld) [Mass ratio] 0-3 Normal 0-3 [facility] Comment on above: Performed By: #### 1 6171994 ####[address] [address] Nitrite Ql (U) Negative Normal Negative [facility] Comment on above: Performed By: #### 1 3800913 ####[address] [address] pH (U) 6.0 [pH] Invalid Interpretation Code 5.0-9.0 [facility] Comment on above: Performed By: #### 1 8392741 ####[address] [address] Protein (U) [Mass/Vol] Negative Normal Negative [facility] Comment on above: Performed By: #### 1 7525591 ####[address] [address] Specific gravity (U) [Rel density] 1.010 Invalid Interpretation Code 1.005-1.030 [facility] Comment on above: Performed By: #### 1 2088824 ####[facility] [address] [place] [address] Type of Urine collection method Clean Catch Normal [facility] Comment on above: Performed By: #### 1 2417824 ####[facility] [address] [place] [address] Urobilinogen Qn (U) 0.2 {Lei'U}/dL Normal 0.0-1.0 [facility] Comment on above: Performed By: #### 1 5513056 ####[facility] [address] [place] [address] WBC Auto Ql (U) Negative Normal Negative [facility] Comment on above: Performed By: #### 1 3457930 ####[facility] [address] [place] [address] WBC LM.HPF (Urine sed) [#/Area] 0-5 Normal 0-5 [facility] Comment on above: Performed By: #### 1 4881594 ####[facility] [address] [place] [address] URINALYSISOrdered By: Karen Vergara on 01-21-2023 Bilirubin [...] PM) Normal Negative [facility] UA Auto SS [place].plasma/[place].R BC (Bld) [Mass ratio] 0-3 /HPF Normal [...] [facility] UA Auto SS Urobilinogen Qn (U) 0.6957574 {Lei'U}/dL Normal 0.0 - 1.0 EU/dL [facility] [...] 62 mL/min/1.73 m2 Normal >=59 [facility] Comment on above: Order Comment: Order added by Discern Expert. Result Comment: Repair Supervisor earnest kidney disease could be indicated at eGFR's of less than 60 mL/min/1.73m2. Kidney failure is indicated at less than 15 mL/min/1.73m2. Performed By: #### 2 588933, 7203573, 65758836, 13686370, 2727528, 4128728 ####[facility] [address] [place] [address] Discharge Instructionson Discharge Instructions [id number] 0CD:127 Normal [facility] Capillary Glucose POCon 12-23 Glucose [Mass/Vol] 117 mg/dL High 55-99 [facility] Comment on above: Result Comment: Yazmin bri Meter Performed By: #### 2 75478762 ####[facility] [address] [place] [address] Family Medicine Office/Clini c Noteon 01-15-2023 Family Medicine Office/Clinic Note Normal [facility] Comment on above: Result Comment: Elec tronically Signed By: SHAISTA POTTS, Dennise.br\Date and Time Signed: 01/15/23 16:46 EDT Capillary Glucose POCon 12-23 Glucose [Mass/Vol] 121 mg/dL High 55-99 [facility] Comment on above: Result Comment: Yazmin bri Meter Performed By: #### 2 52101170 ####[facility] [address] [address] Capillary Glucose POCon 12-23 Glucose [Mass/Vol] 127 mg/dL High 55-99 [facility] Comment on above: Result Comment: Yazmin bri Meter Performed By: #### 2 73137604 ####[facility] [address] [address] Capillary Glucose POCon 12-22 Glucose [Mass/Vol] 104 mg/dL High 55-99 [facility] Comment on above: Result Comment: Yazmin bri Meter Performed By: #### 2 22874231 ####[facility] [address] [place] [address] Capillary Glucose POCon 12-22 Glucose [Mass/Vol] 121 mg/dL High 55-99 [facility] Comment on above: Result Comment: Yazmin bri Meter Performed By: #### 2 23262892 ####[facility] [address] [address] Capillary Glucose POCon 12-22 Glucose [Mass/Vol] 110 mg/dL High 55-99 [facility] Comment on above: Result Comment: Yazmin bri Meter Performed By: #### 2 23647937 ####[facility] [address] [place] [address] Capillary Glucose POCon 12-22 Glucose [Mass/Vol] 119 mg/dL High 55-99 [facility] Comment on above: Result Comment: Yazmin bri Meter Performed By: #### 2 82796105 ####[facility] [address] [place] [address] Capillary Glucose POCon 12-22 Glucose [Mass/Vol] 141 mg/dL High 55-99 [facility] Comment on above: Result Comment: Yazmin bri Meter Performed By: #### 2 73206072 ####[facility] [address] [place] [address] Capillary Glucose POCon 12-22 Glucose [Mass/Vol] 104 mg/dL [facility] 55-99 [facility] Comment on above: Result Comment: Yazmin bri Meter Performed By: #### 2 [id number] ####[facility] [address] [place] [address] BMPon 12-30-2022 Calcium [Mass/Vol] 9.1 mg/dL Normal 8.9-11.1 [facility] Comment on above: Performed By: #### 7 86955965, 9315279, 03088782 ####[facility] [address] [place] [address] Anion gap [Moles/Vol] 18 mmol/L High 6-16 [facility] Comment on above: Performed By: #### 7 58620137, 1522573, 56289780 ####[facility] [address] [place] [address] Chloride [Moles/Vol] 91 mmol/L Low 101-111 [facility] Comment on above: Performed By: #### 7 48603092, 6887136, 64162464 ####[facility] [address] [place] [address] CO2 [Moles/Vol] 30 mmol/L Normal 21-31 [facility] Comment on above: Performed By: #### 7 82602408, 6493907, 30590181 ####[facility] [address] [place] [address] Creatinine [Mass/Vol] 1.3 mg/dL Normal 0.5-1.3 [facility] Comment on above: Performed By: #### 7 56374835, 0059767, 31745269 ####[facility] [address] [place] [address] Glucose [Mass/Vol] 171 mg/dL Normal 55-199 [facility] Comment on above: Result Comment: If t his glucose result represents a fasting glucose, interpretation should refer to the following reference range: 55-99 mg/dL Performed By: #### 7 99991239, 5898340, 12314715 ####[facility] [address] [place] [address] Potassium [Moles/Vol] 4.2 mmol/L Normal 3.5-5.3 [facility] Comment on above: Performed By: #### 7 96735407, 8653146, 36918575 ####[facility] [address] [place] [address] Sodium [Moles/Vol] 135 mmol/L Normal 135-145 [facility] Comment on above: Performed By: #### 7 00717387, 2561395, 77159405 ####[facility] [address] [place] [address] Urea nitrogen [Mass/Vol] 36 mg/dL High 5-21 [facility] Comment on above: Performed By: #### 7 19301656, 1635207, 04524422 ####[facility] [address] [place] [address] Urea nitrogen/Creatinine [Mass ratio] 28 No Units High 10-20 [facility] Comment on above: Performed By: #### 7 89449112, 6265413, 47077266 ####[facility] [address] [place] [address] QkdP4buu 08-09-2023 HbA1c (Bld) [Mass fraction] 6.9 % High <=5.9 [facility] Comment on above: Performed By: #### 7 25742809, 5324255, 87902075 ####[facility] [address] [place] [address] eGFRon 12-30-2022 GFR/1.73 sq M.predicted among non-blacks MDRD (S/P/Bld) [Vol rate/Area] 56 mL/min/1.73 m2 Low >=59 [facility] Comment on above: Order Comment: Order added by Discern Expert. Result Comment: Repair Supervisor earnest kidney disease could be indicated at eGFR's of less than 60 mL/min/1.73m2. Kidney failure is indicated at less than 15 mL/min/1.73m2. Performed By: #### 7 06071327, 7039527, 26668269 ####[facility] [address] [place] [address] Capillary Glucose POCon 08-0 Glucose [Mass/Vol] 141 mg/dL High 55-99 [facility] Comment on above: Result Comment: Yazmin bri Meter Performed By: #### 2 61107890 ####[facility] [address] [place] [address] Capillary Glucose POCon 0 Glucose [Mass/Vol] 101 mg/dL High 55-99 [facility] Comment on above: Result Comment: Yazmin bri Meter Performed By: #### 2 17801382 ####[facility] [address] [place] [address] C Blood Charcoalon 3 Blood Culture Charcoal Normal [facility] Comment on above: Performed By: #### 1 5613001 ####[facility] [address] [place] [address] Capillary Glucose POCon 08-0 Glucose [Mass/Vol] 135 mg/dL High 55-99 [facility] Comment on above: Result Comment: Yazmin bri Meter Performed By: #### 2 76275180 ####[facility] [address] [place] [address] Capillary Glucose POCon 0 Glucose [Mass/Vol] 110 mg/dL High 55-99 [facility] Comment on above: Result Comment: Yazmin bri Meter Performed By: #### 2 83763034 ####[facility] [address] [place] [address] Consultation Noteon 12-24-19 Consultation Note Normal [facility] Comment on above: Result Comment: Elec tronically Signed By: Marcus POTTS, [place]\.br\Date and Time Signed: 12/23/22 07:33 EDT Family Medicine Office/Clini c Noteon 12-23-2022 Family Medicine Office/Clinic Note Normal [facility] Comment on above: Result Comment: Elec tronically Signed By: SHAISTA POTTS, [place]a\.br\Date and Time Signed: 12/22/22 22:31 EDT C Blood Charcoalon Blood Culture Charcoal Normal [facility] Comment on above: Performed By: #### 1 4888540 ####[facility] [address] [place] [address] U Legi Agon 12-22-2022 L. pneumophila 1 Ag IA Ql (U) Negative Invalid Interpretation Code Negative [facility] Comment on above: Result Comment: Pres umptive negative for L. pneumophila serogroup 1 antigen in urine,suggesting no recent or current infection. Legionnaires' diseasecannot be ruled out since other serogroups and species may also causedisease.Performed at: [address] [id number] MD Tyler Gurrola Performed By: #### 2 861572 ####[facility] [address] [place] [address] C Urineon 12-21-2022 Bacteria identified Cx Nom (U) Normal [facility] Comment on above: Performed By: #### 1 3940723, 9671878 ####[facility] [address] [place] [address] Capillary Glucose POCon 11-23 Glucose [Mass/Vol] 134 mg/dL High 55-99 [facility] Comment on above: Result Comment: Yazmin bri Meter Performed By: #### 2 [id number] ####[address] [address] Auto DiffOrdered By: SYSTEM SYSTEM on 12-20-2022 Basophils/100 WBC (Bld) 0.5 % Normal 0.0-2.0 [facility] HemeAutoSS Comment on above: Order Comment: Order Added by Discern Expert. Performed By: #### 2 713941, 7370035, 50290306, 3276673 ####[address] [address] Basophils/Leukocytes Auto (Bld) [Pure # fraction] 0.0 E9/L Normal 0.0-0.2 FT HemeAutoSS Comment on above: Order Comment: Order Added by Discern Expert. Performed By: #### 2 519935, 1678251, 61294033, 8188879 ####[address] [address] Eosinophils/100 WBC (Bld) 7.9 % Normal 0.0-8.0 [facility] HemeAutoSS Comment on above: Order Comment: Order Added by Discern Expert. Performed By: #### 2 826300, 5328037, 87483309, 0529574 ####[address] [address] Eosinophils/Leukocytes Auto (Bld) [Pure # fraction] 0.8 E9/L High 0.0-0.5 [facility] HemeAutoSS Comment on above: Order Comment: Order Added by Discern Expert. Performed By: #### 2 813650, 7686431, 30471636, 4688424 ####[address] [address] Lymphocytes/100 WBC (Bld) 9.5 % Low 14.0-50.0 [facility] HemeAutoSS Comment on above: Order Comment: Order Added by Discern Expert. Performed By: #### 2 602285, 7198607, 19525521, 9318050 ####[address] [address] Lymphocytes/Leukocytes Auto (Bld) [Pure # fraction] 1.0 E9/L Normal 1.0-4.0 FT HemeAutoSS Comment on above: Order Comment: Order Added by Discern Expert. Performed By: #### 2 214808, 3342056, 40395429, 6353910 ####[address] [address] Monocytes/100 WBC (Bld) 7.6 % Normal 4.0-14.0 [facility] HemeAutoSS Comment on above: Order Comment: Order Added by Discern Expert. Performed By: #### 2 781078, 0458983, 71883206, 2515784 ####[address] [address] Monocytes/Leukocytes Auto (Bld) [Pure # fraction] 0.8 E9/L Normal 0.2-1.0 FT HemeAutoSS Comment on above: Order Comment: Order Added by Discern Expert. Performed By: #### 2 360163, 1095799, 62829735, 9208788 ####[address] [address] Neutrophils/100 WBC (Bld) 74.5 % Normal 36.0-75.0 [facility] HemeAutoSS Comment on above: Order Comment: Order Added by Discern Expert. Performed By: #### 2 972838, 0937683, 73103318, 5108092 ####[address] [address] Neutrophils/Leukocytes Auto (Bld) [Pure # fraction] 7.7 E9/L High 2.0-7.5 [facility] HemeAutoSS Comment on above: Order Comment: Order Added by Discern Expert. Performed By: #### 2 570497, 2719900, 98858915, 7872766 ####[address] [address] BMPOrdered By: SYSTEM SYSTEM on 12-20-2022 Anion gap [Moles/Vol] 8 mmol/L Normal 6-16 [facility] C Remisol Comment on above: Performed By: #### 2 483214, 7926801, 17472650, 4488683 ####[facility] [address] [place] [address] Calcium [Mass/Vol] 7.9 mg/dL Low 8.9-11.1 FT R emisol Comment on above: Performed By: #### 2 436114, 7501915, 01855478, 8871728 ####Ciro [address] [address] Chloride [Moles/Vol] 105 mmol/L Normal 101-111 [facility] Remisol Comment on above: Performed By: #### 2 725036, 2231430, 62343645, 8785161 ####Ciro [address] [address] CO2 [Moles/Vol] 25 mmol/L Normal 21-31 FT Ashwin luanne Comment on above: Performed By: #### 2 730871, 0366320, 81075088, 4729192 ####Ciro [address] [address] Creatinine [Mass/Vol] 1.0 mg/dL Normal 0.5-1.3 [facility] C Remisol Comment on above: Performed By: #### 2 488029, 0258453, 47804816, 2314997 ####Ciro [address] [address] Glucose [Mass/Vol] 106 mg/dL Normal 55-199 [facility] R emisol Comment on above: Result Comment: If t his glucose result represents a fasting glucose, interpretation should refer to the following reference range: 55-99 mg/dL Performed By: #### 2 896525, 7620920, 86656278, 9409836 ####C[facility] [address] [place] [address] Potassium [Moles/Vol] 4.4 mmol/L Normal 3.5-5.3 [facility] C Remisol Comment on above: Performed By: #### 2 645725, 0623836, 48398349, 4688059 ####[facility] [address] [place] [address] Sodium [Moles/Vol] 134 mmol/L Low 135-145 [facility] R emisol Comment on above: Performed By: #### 2 212265, 3897443, 74576977, 1767642 ####[facility] [address] [place] [address] Urea nitrogen [Mass/Vol] 22 mg/dL High 5-21 [facility] Remisol Comment on above: Performed By: #### 2 192237, 1561363, 37301351, 8128509 ####[address] [address] BMPon 12-20-2022 Urea nitrogen/Creatinine [Mass ratio] 22 No Units High 10-20 [facility] Comment on above: Performed By: #### 2 717337, 9278623, 82149774, 7960193 ####[address] [address] CBC w/ Auto DiffOrdered By: Bony Hdez on 12-20-2022 Erythrocyte distribution width (RBC) [Ratio] 14.7 % High 10.9-14.2 [facility] HemeAutoSS Comment on above: Performed By: #### 2 498496, 2718890, 03880957, 7004591 ####[address] [address] Hematocrit (Bld) [Volume fraction] 34.6 % Low 37.7-49.0 [facility] HemeAutoSS Comment on above: Performed By: #### 2 470166, 6950304, 32020618, 1310498 ####[address] [address] Hemoglobin (Bld) [Mass/Vol] 11.7 g/dL Low 13.5-17.5 [facility] HemeAutoSS Comment on above: Performed By: #### 2 895462, 0057277, 87527355, 9935581 ####[address] [place] [address] MCH (RBC) [Entitic mass] 28.6 pg Normal 27.0-34.0 FT HemeAutoSS Comment on above: Performed By: #### 2 538257, 0682478, 11065717, 4864832 ####Ciro [address] [address] MCHC (RBC) [Mass/Vol] 33.7 g/dL Normal 31.4-36.0 F[facility] C HemeAutoSS Comment on above: Performed By: #### 2 710463, 3070482, 28469078, 9499108 ####Ciro [place] [address]3457 MCV (RBC) [Entitic vol] 84.7 fL Normal 80.0-100.0 F C HemeAutoSS Comment on above: Performed By: #### 2 960352, 7386974, 60200417, 9825856 ####Ciro [place] 4093457 Platelet mean volume (Bld) [Entitic vol] 9.5 fL Normal 6.4-10.8 FT HemeAutoSS Comment on above: Performed By: #### 2 002653, 4446579, 59836951, 4582638 ####Tanner [address] [address] Platelets (Bld) [#/Vol] 216.0 E9/L Normal 150.0-500.0 FT HemeAutoSS Comment on above: Performed By: #### 2 082655, 5935850, 73850176, 3615599 ####Ciro [address] [address] RBC (Bld) [#/Vol] 4.1 E12/L Low 4.3-5.9 FT HemeAutoSS Comment on above: Performed By: #### 2 134149, 8003526, 38777814, 3882960 ####Tanner [address] [address] WBC corrected for nucl RBC Auto (Bld) [#/Vol] 10.3 E9/L Normal 4.0-11.0 [facility] [facility] [place] [facility] [employer] Comment on above: Performed By: #### 2 352723, 2763765, 25738072, 2404435 ####[facility] [address] [place] [address] CHEMISTRYOrdered By: Lab ROP User on 12-20-2022 Glucose [Mass/Vol] 109 mg/dL High 55 - 99 mg/dL [facility] POC Subsection Comment on above: Result Comment: Gareth GARDINER POC Device SN [id number] Invalid Interpretation Code [facility] Subsection POC User ID [id number] Invalid Interpretation Code [facility] Subsection POC Username SAMANTHA LAMBERT Invalid Interpretation Code [facility] Subsection CHEMISTRYOrdered By: SYSTEM SYSTEM on 12-20-2022 Urea nitrogen/Creatinine [Mass ratio] 22 mg/mg High 10 - 20 [facility] Remisol Capillary Glucose POCon 11-23 Glucose [Mass/Vol] 198 mg/dL High 55-99 [facility] Comment on above: Result Comment: Yazmin bri Meter Performed By: #### 2 [id number] ####[facility] [address] [place] [address] Glucose [Mass/Vol] 109 mg/dL High 55-99 [facility] Comment on above: Result Comment: Gareth GARDINER Performed By: #### 2 [id number] ####[facility] [address] [place] [address] Discharge Documentationon Discharge Documentation [id number]#1.0 0CD:127 Normal [facility] Inpatient Patient Summaryon 12-20-2022 Inpatient Patient Summary Normal [facility] Message from Medicareon 11-23 Message from Medicare [id number]#1. 00CD:127 Normal [facility] Monitor Recordon 12-20-2022 Monitor Record [id number]#1. 00CD:127 Normal [facility] Monitor Record [id number]#1. 00CD:127 Normal [facility] Monitor Record [id number]#1. 00CD:127 Normal [facility] Progress Note-Nurseon 2022 Progress Note-Nurse SBAR report called fanta Robert. Patient was transferred into wheelchair x2 stand pivot. Patient discharged to [facility] room 17. Transport by Samantha Lambert POCT. Normal [facility] Transfer Documentson 023 Transfer Documents [id number]#1.0 0CD:127 Normal [facility] eGFROrdered By: Condition One on 12-20-2022 GFR/1.73 sq M.predicted among non-blacks MDRD (S/P/Bld) [Vol rate/Area] 77 mL/min/1.73 m2 Normal >=59 [facility] Chem S Comment on above: Order Comment: Order added by Discern Expert. Result Comment: Repair Supervisor earnest kidney disease could be indicated at eGFR's of less than 60 mL/min/1.73m2. Kidney failure is indicated at less than 15 mL/min/1.73m2. Performed By: #### 2 987635, 1862414, 94289992, 7121582 ####[facility] [address] [place] [address] Auto Diffon 12-19-2022 Basophils/100 WBC (Bld) 0.4 % Normal 0.0-2.0 F [facility] Comment on above: Order Comment: Order Added by Discern Expert. Performed By: #### 1 9118290, 1055526, 4253197, 3594833 ####[facility] [address] [place] [address] Basophils/Leukocytes Auto (Bld) [Pure # fraction] 0.0 E9/L Normal 0.0-0.2 [facility] Comment on above: Order Comment: Order Added by Discern Expert. Performed By: #### 1 7526940, 9274898, 9285618, 3327347 ####[facility] [address] [place] [address] Eosinophils/100 WBC (Bld) 4.2 % Normal 0.0-8.0 [facility] Comment on above: Order Comment: Order Added by Discern Expert. Performed By: #### 1 3203060, 4510582, 0536665, 1388617 ####[address] [place] [address] Eosinophils/Leukocytes Auto (Bld) [Pure # fraction] 0.6 E9/L High 0.0-0.5 [facility] Comment on above: Order Comment: Order Added by Discern Expert. Performed By: #### 1 5977005, 4626593, 8955481, 3061070 ####[address] [address] Lymphocytes/100 WBC (Bld) 7.3 % Low 14.0-50.0 [facility] Comment on above: Order Comment: Order Added by Discern Expert. Performed By: #### 1 4287015, 5204013, 6062866, 7463216 ####[address] [address] Lymphocytes/Leukocytes Auto (Bld) [Pure # fraction] 1.0 E9/L Normal 1.0-4.0 [facility] Comment on above: Order Comment: Order Added by Discern Expert. Performed By: #### 1 5968953, 1096119, 7796448, 1935792 ####[address] [address] Monocytes/100 WBC (Bld) 6.5 % Normal 4.0-14.0 [facility] Comment on above: Order Comment: Order Added by Discern Expert. Performed By: #### 1 8819048, 0598914, 5804025, 5377334 ####[address] [address] Monocytes/Leukocytes Auto (Bld) [Pure # fraction] 0.9 E9/L Normal 0.2-1.0 [facility] Comment on above: Order Comment: Order Added by Discern Expert. Performed By: #### 1 0565746, 4700330, 2747746, 8474404 ####[address] [place] [address] Neutrophils/100 WBC (Bld) 81.6 % High 36.0-75.0 [facility] Comment on above: Order Comment: Order Added by Discern Expert. Performed By: #### 1 9208163, 0294223, 5068319, 3604820 ####[facility] [address] [place] [address] Neutrophils/Leukocytes Auto (Bld) [Pure # fraction] 10.7 E9/L High 2.0-7.5 [facility] Comment on above: Order Comment: Order Added by Discern Expert. Performed By: #### 1 1728731, 9923855, 5613459, 9924947 ####[address] [place] [address] BMPon 12-19-2022 Anion gap [Moles/Vol] 11 mmol/L Normal 6-16 [facility] Comment on above: Performed By: #### 1 3340295, 9527866, 3659000, 3420034 ####[address] [place] [address] Calcium [Mass/Vol] 8.5 mg/dL Low 8.9-11.1 [facility] Comment on above: Performed By: #### 1 2988199, 2126837, 2001383, 4892854 ####[facility] [address] [place] [address] Chloride [Moles/Vol] 103 mmol/L Normal 101-111 Fish [facility] Comment on above: Performed By: #### 1 6550549, 5349608, 3734262, 6724786 ####[facility] [address] [place] [address] CO2 [Moles/Vol] 28 mmol/L Normal 21-31 [facility] Comment on above: Performed By: #### 1 0948206, 6129039, 4649379, 5154839 ####[facility] [address] [facility] [place] [address] Creatinine [Mass/Vol] 1.2 mg/dL Normal 0.5-1.3 [facility] Comment on above: Performed By: #### 1 8093415, 0907583, 3575183, 6870835 ####[facility] [address] [place] [address] Glucose [Mass/Vol] 86 mg/dL Normal 55-199 [facility] Comment on above: Result Comment: If t his glucose result represents a fasting glucose, interpretation should refer to the following reference range: 55-99 mg/dL Performed By: #### 1 3286603, 4093225, 5112749, 9291083 ####[facility] [address] [place] [address] Potassium [Moles/Vol] 4.5 mmol/L Normal 3.5-5.3 [facility] Comment on above: Performed By: #### 1 8788791, 4952864, 5840745, 2852695 ####[facility] [address] [place] [place] [address] Sodium [Moles/Vol] 137 mmol/L Normal 135-145 [facility] Comment on above: Performed By: #### 1 8155659, 1771300, 7401112, 3568118 ####[facility] [address] [place] [address] Urea nitrogen [Mass/Vol] 35 mg/dL High 5-21 [facility] Comment on above: Performed By: #### 1 3431823, 5092724, 3396516, 7327722 ####[facility] [address] [place] [address] Urea nitrogen/Creatinine [Mass ratio] 29 No Units High 10-20 [facility] Comment on above: Performed By: #### 1 5292346, 9450887, 5379888, 4777981 ####[facility] [address] [place] [address] CBC w/ Auto Diffon 07-29-202 3 Erythrocyte distribution width (RBC) [Ratio] 15.0 % High 10.9-14.2 [facility] Comment on above: Performed By: #### 1 0723486, 4655159, 4373141, 3029931 ####[facility] [address] [place] [address] Hematocrit (Bld) [Volume fraction] 38.4 % Normal 37.7-49.0 [facility] Comment on above: Performed By: #### 1 1312142, 8390642, 4776957, 2348873 ####[address] [place] [address] Hemoglobin (Bld) [Mass/Vol] 12.7 g/dL Low 13.5-17.5 [facility] Comment on above: Performed By: #### 1 8010639, 5385482, 3437355, 4632125 ####[address] [address] MCH (RBC) [Entitic mass] 27.9 pg Normal 27.0-34.0 [facility] Comment on above: Performed By: #### 1 0336514, 9485206, 7008060, 4136053 ####[address] [place] [address] MCHC (RBC) [Mass/Vol] 32.9 g/dL Normal 31.4-36.0 [facility] Comment on above: Performed By: #### 1 5718700, 3609517, 7205634, 0244179 ####[address] [place] [address] MCV (RBC) [Entitic vol] 84.8 fL Normal 80.0-100.0 F [facility] Comment on above: Performed By: #### 1 3957590, 6859444, 7626557, 8451698 ####[address] [place] [address] Platelet mean volume (Bld) [Entitic vol] 9.5 fL Normal 6.4-10.8 [facility] Comment on above: Performed By: #### 1 7788946, 8176267, 1613257, 3268187 ####[facility] [address] [place] [address] Platelets (Bld) [#/Vol] 230.0 E9/L Normal 150.0-500.0 [facility] Comment on above: Performed By: #### 1 6097803, 6097330, 4399469, 3740034 ####[address] [place] [address] RBC (Bld) [#/Vol] 4.5 E12/L Normal 4.3-5.9 [facility] Comment on above: Performed By: #### 1 5278223, 5974142, 5190472, 6768868 ####[facility] [address] [place] [address] WBC corrected for nucl RBC Auto (Bld) [#/Vol] 13.1 E9/L High 4.0-11.0 [facility] Comment on above: Performed By: #### 1 5751000, 1319262, 2777631, 6976750 ####[facility] [address] [place] [address] CHEMISTRYOrdered By: Lab ROP User on 12-19-2022 Glucose [Mass/Vol] 210 mg/dL High 55 - 99 mg/dL [facility] POC Subsection Comment on above: Result Comment: Gareth GARDINER POC Device SN [id number] Invalid Interpretation Code [facility] P[facility] Subsection POC User ID [id number] Invalid Interpretation Code [facility] Subsection POC Username JODITRESAPatti SHER Invalid Interpretation Code [facility] Subsection Glucose [Mass/Vol] 111 mg/dL High 55 - 99 mg/dL [facility] Subsection Comment on above: Result Comment: Gareth GARDINER POC Device SN [id number] Invalid Interpretation Code FT POC Subsection POC User ID [id number] Invalid Interpretation Code [facility] POC Subsection POC Username KELLEN HERNANDEZ Invalid Interpretation Code [facility] POC Subsection CHEMISTRYOrdered By: SYSTEM SYSTEM on 12-19-2022 Anion gap [Moles/Vol] 11 mmol/L Normal 6 - 16 mEq/L [facility] Remisol Calcium [Mass/Vol] 8.5 mg/dL Low 8.9 - 11. 1 mg/dL [facility] Chloride [Moles/Vol] 103 mmol/L Normal 101 - 1 11 mmol/L [facility] CO2 [Moles/Vol] 28 mmol/L Normal 21 - 31 mmol/L [facility] Creatinine [Mass/Vol] 1.2 mg/dL Normal 0.5 - 1.3 mg/dL [facility] GFR/1.73 sq M.predicted among non-blacks MDRD (S/P/Bld) [Vol rate/Area] 62 mL/min/1.73 m2 Normal >=59mL/min/ 1.73 m2 [facility] Chem S Glucose [Mass/Vol] 86 mg/dL Normal 55 - 199 mg/dL [facility] Remisol Potassium [Moles/Vol] 4.5 mmol/L Normal 3.5 - 5.3 mmol/L [facility] Remisol Sodium [Moles/Vol] 137 mmol/L Normal 135 - 145 mmol/L [facility] Remisol Urea nitrogen [Mass/Vol] 35 mg/dL High 5 - 21 mg/dL [facility] Remisol Urea nitrogen/Creatinine [Mass ratio] 29 mg/mg High 10 - 20 [facility] Remisol Capillary Glucose POCon 11-22 Glucose [Mass/Vol] 210 mg/dL High 55-99 [facility] Comment on above: Result Comment: Gareth GARDINER Performed By: #### 2 [id number] ####[facility] [address] [place] [address] Glucose [Mass/Vol] 111 mg/dL High 55-99 [facility] Comment on above: Result Comment: Gareth GARDINER Performed By: #### 2 [id number] ####[facility] [address] [place] [address] Glucose [Mass/Vol] 201 mg/dL High 55-99 [facility] Comment on above: Result Comment: Gareth GARDINER Performed By: #### 2 13536380 ####[facility] [address] [place] [address] Glucose [Mass/Vol] 93 mg/dL Normal 55-99 [facility] Comment on above: Result Comment: Gareth guerrero RN/ Performed By: #### 2 06091958 ####[facility] [address] [place] [address] HEMATOLOGYOrdered By: SYSTEM SYSTEM on 12-19-2022 Basophils/100 [...] 4.5 E12/L Normal 4.3 - 5.9 E12/L [facility] [employer] WBC corrected for nucl RBC Auto (Bld) [#/Vol] 13.1 E9/L High 4.0 - 11.0 E9/L [facility] [employer] Monitor Recordon 12-19-2022 Monitor Record [id number]#1. 00CD:127 Normal [facility] Monitor Record [id number]#1. 00CD:127 Normal [facility] Progress Note-Physicianon Progress Note-Physician Normal F [facility] Comment on above: Result Comment: Elec tronically Signed By: MICHAEL POTTS, Jamir\.br\Date and Time Signed: 12/19/22 09:47 EDT eGFRon 12-19-2022 GFR/1.73 sq M.predicted among non-blacks MDRD (S/P/Bld) [Vol rate/Area] 62 mL/min/1.73 m2 Normal >=59 [facility] Comment on above: Order Comment: Order added by Discern Expert. Result Comment: Repair Supervisor earnest kidney disease could be indicated at eGFR's of less than 60 mL/min/1.73m2. Kidney failure is indicated at less than 15 mL/min/1.73m2. Performed By: #### 1 4049717, 9334871, 2846850, 3449464 ####[facility] [address] [place] [address] Auto Diffon 12-18-2022 Basophils/100 WBC (Bld) 0.4 % Normal 0.0-2.0 F [facility] Comment on above: Order Comment: Order Added by Discern Expert. Performed By: #### 2 736088, 4322085 ####[facility] [address] [place] [address] Basophils/Leukocytes Auto (Bld) [Pure # fraction] 0.1 E9/L Normal 0.0-0.2 [facility] Comment on above: Order Comment: Order Added by Discern Expert. Performed By: #### 2 483760, 7850076 ####[address] [address] Eosinophils/100 WBC (Bld) 2.8 % Normal 0.0-8.0 [facility] Comment on above: Order Comment: Order Added by Bethany Expert. Performed By: #### 2 308329, 4275165 ####[address] [address] Eosinophils/Leukocytes Auto (Bld) [Pure # fraction] 0.4 E9/L Normal 0.0-0.5 [facility] Comment on above: Order Comment: Order Added by Bethany Expert. Performed By: #### 2 017969, 5744107 ####[address] [address] Lymphocytes/100 WBC (Bld) 9.0 % Low 14.0-50.0 [facility] Comment on above: Order Comment: Order Added by Discern Expert. Performed By: #### 2 773552, 3771752 ####[facility] [address] [place] [address] Lymphocytes/Leukocytes Auto (Bld) [Pure # fraction] 1.3 E9/L Normal 1.0-4.0 [facility] Comment on above: Order Comment: Order Added by Bethany Expert. Performed By: #### 2 976164, 3950207 ####[facility] [address] [place] [address] Monocytes/100 WBC (Bld) 8.3 % Normal 4.0-14.0 F [facility] Comment on above: Order Comment: Order Added by Discern Expert. Performed By: #### 2 386116, 9613599 ####[address] [address] Monocytes/Leukocytes Auto (Bld) [Pure # fraction] 1.3 E9/L High 0.2-1.0 [facility] Comment on above: Order Comment: Order Added by Discern Expert. Performed By: #### 2 955507, 2850801 ####[address] [address] Neutrophils/100 WBC (Bld) 79.5 % High 36.0-75.0 [facility] Comment on above: Order Comment: Order Added by Bethany Expert. Performed By: #### 2 143016, 4044626 ####[address] [address] Neutrophils/Leukocytes Auto (Bld) [Pure # fraction] 11.9 E9/L High 2.0-7.5 [facility] Comment on above: Order Comment: Order Added by Bethany Expert. Performed By: #### 2 651615, 3801080 ####[address] [address] Basophils/100 WBC (Bld) 0.6 % Normal 0.0-2.0 F [facility] Comment on above: Order Comment: Order Added by Bethany Expert. Performed By: #### 1 2301464, 3625100, 48247012, 6109960, 71586019, 15586351, 2722142 ####[address] [place] [address] Basophils/Leukocytes Auto (Bld) [Pure # fraction] 0.1 E9/L Normal 0.0-0.2 [facility] Comment on above: Order Comment: Order Added by Bethany Expert. Performed By: #### 1 5350834, 4611459, 47215934, 6786511, 39087682, 43566111, 1834720 ####[address] [place] [address] Eosinophils/100 WBC (Bld) 2.0 % Normal 0.0-8.0 [facility] Comment on above: Order Comment: Order Added by Discern Expert. Performed By: #### 1 6565586, 2725928, 93984129, 1870081, 74974732, 22516436, 6731217 ####[address] [address] Eosinophils/Leukocytes Auto (Bld) [Pure # fraction] 0.3 E9/L Normal 0.0-0.5 [facility] Comment on above: Order Comment: Order Added by Discern Expert. Performed By: #### 1 8663927, 6865498, 82303992, 0229130, 73097307, 45282697, 1550494 ####[address] [address] Lymphocytes/100 WBC (Bld) 7.6 % Low 14.0-50.0 [facility] Comment on above: Order Comment: Order Added by Discern Expert. Performed By: #### 1 1153679, 9344971, 76622357, 2696955, 42524144, 34777816, 4831435 ####[address] [address] Lymphocytes/Leukocytes Auto (Bld) [Pure # fraction] 1.3 E9/L Normal 1.0-4.0 [facility] Comment on above: Order Comment: Order Added by Discern Expert. Performed By: #### 1 6202293, 0652897, 21155262, 0583759, 99943485, 30812305, 7296538 ####[address] [address] Monocytes/100 WBC (Bld) 7.8 % Normal 4.0-14.0 [facility] Comment on above: Order Comment: Order Added by Discern Expert. Performed By: #### 1 3937069, 6610563, 73356715, 3101920, 50287707, 74288879, 0537744 ####[address] [place] [address] Monocytes/Leukocytes Auto (Bld) [Pure # fraction] 1.3 E9/L High 0.2-1.0 [facility] Comment on above: Order Comment: Order Added by Discern Expert. Performed By: #### 1 4911430, 5040562, 87927698, 1638037, 85134705, 60350795, 1335180 ####[address] [place] [address] Neutrophils/100 WBC (Bld) 82.0 % High 36.0-75.0 [facility] Comment on above: Order Comment: Order Added by Discern Expert. Performed By: #### 1 1534407, 4353970, 47992683, 6464336, 24282113, 97640047, 5996925 ####[address] [place] [address] Neutrophils/Leukocytes Auto (Bld) [Pure # fraction] 13.7 E9/L High 2.0-7.5 [facility] Comment on above: Order Comment: Order Added by Discern Expert. Performed By: #### 1 0605811, 8108483, 41514141, 2970429, 85806714, 43370684, 1855386 ####[facility] [address] [place] [address] BMPon 12-18-2022 Creatinine [Mass/Vol] 1.6 mg/dL High 0.5-1.3 [facility] Comment on above: Performed By: #### 2 993411, 9447067, 8737986571, 81989767, 35572814 ####[facility] [address] [place] [address] Urea nitrogen [Mass/Vol] 47 mg/dL High 5-21 [facility] Comment on above: Performed By: #### 2 965452, 6356684, 7702415521, 71854176, 24748832 ####[facility] [address] [place] [address] Urea nitrogen/Creatinine [Mass ratio] 29 No Units High 10-20 [facility] Comment on above: Performed By: #### 2 449273, 2155834, 6364977394, 06446690, 38979787 ####[facility] [address] [place] [address] Anion gap [Moles/Vol] 12 mmol/L Normal 6-16 [facility] Comment on above: Performed By: #### 2 026346, 4459248, 3885605591, 09860026, 29011807 ####[facility] [address] [place] [address] Calcium [Mass/Vol] 8.7 mg/dL Low 8.9-11.1 [facility] Comment on above: Performed By: #### 2 355503, 1236153, 4611938033, 16516847, 61666679 ####[facility] [address] [facility] [place] [address] Chloride [Moles/Vol] 97 mmol/L Low 101-111 Fish [facility] Comment on above: Performed By: #### 2 540439, 1701743, 1820713625, 25977928, 80206926 ####[facility] [address] [place] [address] CO2 [Moles/Vol] 32 mmol/L High 21-31 [facility] Comment on above: Performed By: #### 2 782890, 1870304, 8553118996, 03520337, 88904505 ####[facility] [address] [place] [address] Glucose [Mass/Vol] 131 mg/dL Normal 55-199 [facility] Comment on above: Result Comment: If t his glucose result represents a fasting glucose, interpretation should refer to the following reference range: 55-99 mg/dL Performed By: #### 2 903900, 0385921, 0457740845, 71519494, 73877516 ####[facility] [address] [place] [place] [address] Potassium [Moles/Vol] 3.7 mmol/L Normal 3.5-5.3 [facility] Comment on above: Performed By: #### 2 380361, 9851180, 3275561427, 76682363, 37944469 ####[facility] [address] [place] [address] Sodium [Moles/Vol] 137 mmol/L Normal 135-145 [facility] Comment on above: Performed By: #### 2 719164, 3469120, [id number], 17846385, 41156251 ####[facility] [address] [place] [address] Creatinine [Mass/Vol] 1.8 mg/dL High 0.5-1.3 [facility] Comment on above: Performed By: #### 1 5220204, 2184761, 41285912, 4507511, 35203513, 79739412, 4929897 ####[facility] [address] [place] [address] Urea nitrogen [Mass/Vol] 49 mg/dL High 5-21 [facility] Comment on above: Performed By: #### 1 5608470, 3715658, 87554300, 7514536, 54790791, 50155255, 8677486 ####[facility] [address] [place] [address] Urea nitrogen/Creatinine [Mass ratio] 27 No Units High 10-20 [facility] Comment on above: Performed By: #### 1 6325460, 8564872, 92366232, 3259272, 85647580, 70690528, 9621663 ####[facility] [address] [place] [address] Anion gap [Moles/Vol] 18 mmol/L High 6-16 [facility] Comment on above: Performed By: #### 1 2862478, 2109254, 02547620, 8207731, 95269294, 12025389, 8283691 ####[facility] [address] [place] [address] Calcium [Mass/Vol] 9.3 mg/dL Normal 8.9-11.1 [facility] Comment on above: Performed By: #### 1 6670074, 3080671, 13992416, 8942465, 20925978, 17089196, 5624485 ####[facility] [address] [place] [address] Chloride [Moles/Vol] 93 mmol/L Low 101-111 [facility] Comment on above: Performed By: #### 1 1369139, 9649360, 92633845, 5873791, 60077008, 40466163, 4891800 ####[facility] [address] [place] [address] CO2 [Moles/Vol] 29 mmol/L Normal 21-31 [facility] Comment on above: Performed By: #### 1 8454917, 7624781, 09549387, 7001870, 91828233, 53643715, 9471421 ####[facility] [address] [place] [address] Glucose [Mass/Vol] 137 mg/dL Normal 55-199 [facility] Comment on above: Result Comment: If t his glucose result represents a fasting glucose, interpretation should refer to the following reference range: 55-99 mg/dL Performed By: #### 1 9819312, 8948666, 27178017, 1030901, 77781101, 23798390, 1122757 ####[facility] [address] [place] [address] Potassium [Moles/Vol] 4.0 mmol/L Normal 3.5-5.3 [facility] Comment on above: Performed By: #### 1 7241861, 6812339, 35794683, 6275529, 98335320, 79279603, 7698041 ####[facility] [address] [place] [address] Sodium [Moles/Vol] 136 mmol/L Normal 135-145 [facility] Comment on above: Performed By: #### 1 1600874, 2407036, 79863020, 6877756, 52084463, 45699827, 8085580 ####[facility] [address] [place] [address] BNPon 12-18-2022 Int Ctr BNP Pass Normal [facility] Comment on above: Performed By: #### 1 3204762, 4107330, 39140697, 0886208, 14645697, 49998315, 8996002 ####[facility] [address] [place] [address] Natriuretic peptide B (Bld) [Mass/Vol] 219 pg/mL High 5-80 [facility] Comment on above: Performed By: #### 1 8676576, 8677417, 86672999, 7549306, 93430998, 22281404, 2734236 ####[facility] [address] [place] [address] CBC w/ Auto Diffon Erythrocyte distribution width (RBC) [Ratio] 14.8 % High 10.9-14.2 [facility] Comment on above: Performed By: #### 2 033866, 8205302 ####[place] [address]157 Hematocrit (Bld) [Volume fraction] 37.8 % Normal 37.7-49.0 [facility] Comment on above: Performed By: #### 2 274220, 1835051 ####[facility] [address] [place] [address] Hemoglobin (Bld) [Mass/Vol] 12.7 g/dL Low 13.5-17.5 [facility] Comment on above: Performed By: #### 2 451125, 8041935 ####[facility] [address] [place] [address] MCH (RBC) [Entitic mass] 28.3 pg Normal 27.0-34.0 [facility] Comment on above: Performed By: #### 2 706244, 8805750 ####[address] [address] MCHC (RBC) [Mass/Vol] 33.6 g/dL Normal 31.4-36.0 [facility] Comment on above: Performed By: #### 2 180564, 7458985 ####[place] [address] [place] [address] MCV (RBC) [Entitic vol] 84.2 fL Normal 80.0-100.0 [facility] Comment on above: Performed By: #### 2 463094, 7969393 ####[address] [address] Platelet mean volume (Bld) [Entitic vol] 9.2 fL Normal 6.4-10.8 [facility] Comment on above: Performed By: #### 2 770037, 1095413 ####[address] [address] Platelets (Bld) [#/Vol] 219.0 E9/L Normal 150.0-500.0 [facility] Comment on above: Performed By: #### 2 533653, 5581800 ####[address] [address] RBC (Bld) [#/Vol] 4.5 E12/L Normal 4.3-5.9 [facility] Comment on above: Performed By: #### 2 682154, 3285139 ####[address] [address] WBC corrected for nucl RBC Auto (Bld) [#/Vol] 15.0 E9/L High 4.0-11.0 [facility] Comment on above: Performed By: #### 2 229912, 4493207 ####[address] [address] Erythrocyte distribution width (RBC) [Ratio] 14.9 % High 10.9-14.2 [facility] Comment on above: Performed By: #### 1 0025958, 1188216, 42822600, 7692437, 67423105, 43586211, 3119379 ####[facility] [address] [place] [address] Hematocrit (Bld) [Volume fraction] 42.8 % Normal 37.7-49.0 [facility] Comment on above: Performed By: #### 1 8164235, 2749225, 54936233, 7877343, 31626935, 79882325, 4598753 ####[facility] [address] [place] [address] Hemoglobin (Bld) [Mass/Vol] 14.3 g/dL Normal 13.5-17.5 [facility] Comment on above: Performed By: #### 1 0777180, 9642205, 74502048, 3781764, 47427140, 06234481, 3101497 ####[facility] [address] [place] [address] MCH (RBC) [Entitic mass] 28.1 pg Normal 27.0-34.0 [facility] Comment on above: Performed By: #### 1 5138017, 2167331, 07756473, 7154151, 64463896, 36097608, 9148253 ####[facility] [address] [place] [address] MCHC (RBC) [Mass/Vol] 33.3 g/dL Normal 31.4-36.0 [facility] Comment on above: Performed By: #### 1 6185357, 4622493, 05374957, 2475027, 52220984, 06450030, 2891717 ####[facility] [address] [place] [address] MCV (RBC) [Entitic vol] 84.3 fL Normal 80.0-100.0 F [facility] Comment on above: Performed By: #### 1 4145704, 3672185, 31343397, 6608170, 66259059, 46420652, 8677405 ####[facility] [address] [place] [address] Platelet mean volume (Bld) [Entitic vol] 9.8 fL Normal 6.4-10.8 [facility] Comment on above: Performed By: #### 1 1443772, 4539538, 54822247, 2110464, 03276824, 41370800, 8657433 ####[facility] [address] [place] [address] Platelets (Bld) [#/Vol] 234.0 E9/L Normal 150.0-500.0 [facility] Comment on above: Performed By: #### 1 3561171, 2098664, 63445679, 8358535, 00739265, 02478514, 8304411 ####[facility] [address] [place] [address] RBC (Bld) [#/Vol] 5.1 E12/L Normal 4.3-5.9 [facility] Comment on above: Performed By: #### 1 3377159, 6677925, 71638313, 5544390, 11965619, 11471005, 5451723 ####[facility] [address] [place] [address] WBC corrected for nucl RBC Auto (Bld) [#/Vol] 16.7 E9/L High 4.0-11.0 [facility] Comment on above: Result Comment: Slid e reviewed by JENNIFER. Performed By: #### 1 1417011, 6494189, 01077577, 1258736, 69853553, 12885203, 0019427 ####[facility] [address] [place] [address] CHEMISTRYOrdered By: SYSTEM SYSTEM on 12-18-2022 Troponin [...] 44 mL/min/1.73 m2 Low >=59mL/min/ 1.73 m2 [facility] Chem S Glucose [Mass/Vol] 131 mg/dL Normal [...] 219 pg/mL High 5 - 80 pg/mL [facility] HemeManSS CKon 12-18-2022 CK [Catalytic activity/Vol] 55 Int._Unit/L Normal 14-261 [facility] Comment on above: Performed By: #### 2 043122, 8936717, 0538433418, 99779974, 89004607 ####[facility] [address] [place] [address] COAGULATIONOrdered By: Rachael Apodaca on 12-18-2022 aPTT Coag (PPP) [Time] 30.6 s Normal 25.1 - 36.5 second(s) [facility] Auto Coag INR Coag (PPP) [Relative time] 1.1 {INR} Invalid Interpretation Code [facility] Auto Coag PT Coag (PPP) [Time] 12.5 s Normal 9.4 - 1 2.5 second(s) [facility] Auto Coag CT Head or Brain w/o Contras ton 12-18-2022 CT Head or Brain w/o Contrast Normal [facility] CT Spine Cervical w/o Contra ston 12-18-2022 CT Spine Cervical w/o Contrast Normal [facility] Capillary Glucose POCon 11-22 Glucose [Mass/Vol] 212 mg/dL High 55-99 [facility] Comment on above: Result Comment: Gareth GARDINER Performed By: #### 2 [id number] ####[facility] [address] [place] [address] Glucose [Mass/Vol] 97 mg/dL Normal 55-99 [facility] Comment on above: Result Comment: Yazmin bri Meter Performed By: #### 2 97857254 ####[facility] [address] [place] [address] Glucose [Mass/Vol] 119 mg/dL High 55-99 [facility] Comment on above: Result Comment: Gareth GARDINER Performed By: #### 2 67139555 ####[facility] [address] [place] [address] Glucose [Mass/Vol] 131 mg/dL High 55-99 [facility] Comment on above: Result Comment: Gareth GARDINER Performed By: #### 2 19093937 ####[facility] [address] [place] [address] Consent for Treatmenton 11-22 Consent for Treatment [id number]. 00CD:127 Normal [facility] ED Clinical Summaryon 2022 ED Clinical Summary Normal [facility] ED Note-Physicianon 12-19-19 ED Note-Physician Normal [facility] Comment on above: Result Comment: Elec tronically Signed By: Guilherme POTTS, Malcom\.br\Date and Time Signed: 12/18/22 04:33 EDT ED Patient Education Noteon 12-18-2022 ED Patient Education Note Normal [facility] ED Patient Summaryon 023 ED Patient Summary Normal [facility] ED Traumaon 12-18-2022 ED Trauma [id number]. 00CD:127 Normal [facility] HEMATOLOGYOrdered By: SYSTEM SYSTEM on 12-18-2022 [...] 15.0 E9/L High 4.0 - 11.0 E9/L [facility] HemeAutoSS Insurance Correspondence Off iceon 12-18-2022 Insurance Correspondence Office [id number]#[id number] 0CD:127 Normal [facility] Interdisciplinary Note - Santosh e Manageron 12-18-2022 Interdisciplinary Note - Grain [employer] [facility] Comment on above: Result Comment: Elec tronically Signed By: Lucero Watson\.br\Date and Time Signed: 12/18/22 14:57 EDT Interdisciplinary Note - Dejuan singon 12-18-2022 Interdisciplinary Note - Nursing Patient he is confused and he does not able to answer my questions. informed staff in [facility] to send current medication list in fax.3N Normal [facility] Interdisciplinary Note - PTo n 12-18-2022 Interdisciplinary Note - PT Normal [facility] Laboratory - Microbiology an d Antimicrobial susceptibilityOrdered By: Karen Vergara on 12-18-2022 Bacteria identified Cx Nom (U) 10,000 cfu/ml Staphylococcus species Continuing incubation [facility] Monitor Recordon 12-18-2022 Monitor Record [id number]#1. 00CD:127 Normal [facility] No Panel InformationOrdered By: Karen Vergara on 12-18-2022 Blood Culture Charcoal Streptococcus spe cies Staphylococcus species coagulase negative In 1 of 2 blood culture bottles drawn. Isolated from aerobic bottle Preliminary gram stain results of gram positive cocci in clusters Result called to Dr. Mckinney by and results read back for confirmation on 12/19/2022 09:39:39 [facility] No Panel InformationOrdered By: ANGPROCESSSERVER MICROBIOLOGY on 12-18-2022 Blood Culture Charcoal No growth at 2 da ys. Final to follow at 7 days. [facility] PT & PTTon 12-18-2022 aPTT Coag (PPP) [Time] 30.6 second(s) Normal 25.1-36.5 [facility] Comment on above: Result Comment: Para [...] the same coagulation reagent and instrumentation as [facility]. Currently there are no coagulation studies available worldwide for children to 14 days, and no normal ranges. Heparin therapeutic range (represented by Anti-Factor Xa activity of 0.2 - 0.4 U/mL) corresponds to PTT of 56.6 - 109.0 sec. Performed By: #### 1 8923990, 1812942, 26487027, 4373856, 08965823, 60032110, 1525727 ####[facility] [address] [place] [address] INR Coag (PPP) [Relative time] 1.1 {INR} Invalid Interpretation Code [facility] Comment on above: Result Comment: INR results are specifically intended to assess patients stabilized on long-term Anticoagulation therapy suggested INR?s ?Less Intensive Anticoagulation? 2.0 ? 3.0Conventional Range 3.0 ? 4.5 Performed By: #### 1 9454743, 8277042, 56338323, 2970175, 48102237, 85901562, 1575385 ####[facility] [address] [place] [address] PT Coag (PPP) [Time] 12.5 second(s) Normal 9.4-12.5 [facility] Comment on above: Result Comment: 15 [...] the same coagulation reagent and instrumentation as [facility]. Currently there are no coagulation studies available worldwide for children to 14 days, and no normal ranges. Performed By: #### 1 2052950, 5791501, 36689383, 5535133, 76862848, 27596193, 8918134 ####[facility] [address] [place] [address] Procalcitoninon 12-18-2022 Procalcitonin .09 ng/mL Normal .00-.50 [facility] Comment on above: Result [...] to 24 hours. Performed By: #### 2 174740, 3086024, 6278795806, 12264859, 37114753 ####[facility] [address] [place] [address] RAD - Preliminary Cat Scan R eporton 12-18-2022 RAD - Preliminary Cat Scan Report [id number]#1. 00CD:127 Normal [facility] Troponin 0 Hr.on 12-18-2022 Troponin I.cardiac [Mass/Vol] 23.50 pg/mL Normal 15.90-38.40 [facility] Comment on above: Result Comment: The 95% CI (Confidence Interval) PPV (Positive Predictive Value) for myocardial infarction in females is 38 pg/mL, in males 51 pg/mL. The results should be used in conjunction with clinical conditions of myocardial infarction.(Access High Sensitivity Troponin I Instructions For Use, ReferralMD, December 2017) Performed By: #### 1 1771288, 0131688, 97063527, 4679469, 95396912, 86409043, 3530503 ####[facility] [address] [place] [address] Troponin 3 Hr.on 12-18-2022 Troponin I.cardiac [Mass/Vol] 18.80 pg/mL Normal 15.90-38.40 [facility] Comment on above: Result Comment: The 95% CI (Confidence Interval) PPV (Positive Predictive Value) for myocardial infarction in females is 38 pg/mL, in males 51 pg/mL. The results should be used in conjunction with clinical conditions of myocardial infarction.(Access High Sensitivity Troponin I Instructions For Use, ReferralMD, December 2017) Performed By: #### 1 0483532 ####[facility] [address] [place] [address] Troponin 6 Hr.on 12-18-2022 Troponin I.cardiac [Mass/Vol] 22.50 pg/mL Normal 15.90-38.40 [facility] Comment on above: Result Comment: The 95% CI (Confidence Interval) PPV (Positive Predictive Value) for myocardial infarction in females is 38 pg/mL, in males 51 pg/mL. The results should be used in conjunction with clinical conditions of myocardial infarction.(Access High Sensitivity Troponin I Instructions For Use, ReferralMD, December 2017) Performed By: #### 2 152954, 4562419, 8392701473, 94821092, 04086273 ####[facility] [address] [place] [address] Troponin 9 Hr.on 12-18-2022 Troponin I.cardiac [Mass/Vol] 18.90 pg/mL Normal 15.90-38.40 [facility] Comment on above: Result Comment: The 95% CI (Confidence Interval) PPV (Positive Predictive Value) for myocardial infarction in females is 38 pg/mL, in males 51 pg/mL. The results should be used in conjunction with clinical conditions of myocardial infarction.([employer] High Sensitivity Troponin I Instructions For Use, ReferralMD, December 2017) Performed By: #### 1 2034602 ####[address] [address] UA With Cult Reflexon 2022 Bacteria LM Ql (Urine sed) TRACE Normal Trace [facility] Comment on above: Performed By: #### 1 4182774, 4157167 ####[address] [address] Bilirubin Ql (U) Negative Normal Negative [facility] Comment on above: Performed By: #### 1 0212367, 0080217 ####[address] [address] Clarity (U) CLEAR Normal Clear [facility] Comment on above: Performed By: #### 1 4084122, 3190981 ####[address] [address] Color (U) YELLOW Normal Yellow [facility] Comment on above: Performed By: #### 1 8258342, 3570014 ####[place] [address] [place] [address] Epithelial cells.squamous LM.HPF (Urine sed) [#/Area] 0-2 Normal 0-2 [facility] Comment on above: Performed By: #### 1 6100451, 8832282 ####[facility] [address] [place] [address] Glucose Test strip (U) [Mass/Vol] Negative Normal Negative [facility] Comment on above: Performed By: #### 1 5338502, 8435077 ####[facility] [address] [place] [address] Hemoglobin Ql (U) TRACE Abnormal Negative [facility] Comment on above: Performed By: #### 1 9438583, 0522936 ####[facility] [address] [place] [address] Ketones (U) [Mass/Vol] Negative Normal Negative [facility] Comment on above: Performed By: #### 1 6589527, 0268494 ####[facility] [address] [place] [address] [place].plasma/[place].R BC (Bld) [Mass ratio] 0-3 Normal 0-3 [facility] Comment on above: Performed By: #### 1 5221509, 5284816 ####[facility] [address] [place] [address], [place] [address] Nitrite Ql (U) Negative Normal Negative [facility] Comment on above: Performed By: #### 1 5868606, 7247185 ####[facility] [address] [place] [address] pH (U) 6.5 [pH] Invalid Interpretation Code 5.0-9.0 [facility] Comment on above: Performed By: #### 1 3695634, 8854944 ####[facility] [address] [place] [place] [address] Protein (U) [Mass/Vol] Negative Normal Negative [facility] Comment on above: Performed By: #### 1 8138465, 3296959 ####[facility] [address] [place] [place] [address] Specific gravity (U) [Rel density] 1.020 Invalid Interpretation Code 1.005-1.030 [facility] Comment on above: Performed By: #### 1 8569110, 0060796 ####[facility] [address] [place] [address] Type of Urine collection method Clean Catch Normal [facility] Comment on above: Performed By: #### 1 1569508, 0496426 ####[facility] [address] [place] [address] Urobilinogen Qn (U) 0.2 {Lei'U}/dL Normal 0.0-1.0 [facility] Comment on above: Performed By: #### 1 6971855, 1471949 ####[place] [address] WBC Auto Ql (U) 3+ Abnormal Negative [facility] Comment on above: Performed By: #### 1 7527983, 6296805 ####[facility] [address] [place] [address] WBC LM.HPF (Urine sed) [#/Area] /[HPF] Abnormal 0-5 [facility] Comment on above: Performed By: #### 1 2591642, 9743143 ####[facility] [address] [place] [address] URINALYSISOrdered By: [place] Castillo on 12-18-2022 Bacteria [...] PM) Normal Negative [facility] UA Auto SS [place].plasma/[place].R BC (Bld) [Mass ratio] 0-3 /HPF Normal [...] [facility] UA Auto SS Urobilinogen Qn (U) 0.9743884 {Lei'U}/dL Normal 0.0 - 1.0 EU/dL [facility] UA Auto SS WBC Auto Ql (U) 3+ *ABN* (12/18/22 4:45 PM) Invalid Interpretation Code Negative [facility] UA Auto SS WBC LM.HPF (Urine sed) [#/Area] /[HPF] Invalid Interpretation Code 0-5/HPF [facility] UA Auto SS XR Chest Single Viewon 12-18 XR Chest Single View Normal [facility] XR Pelvis 1 or 2 Viewson XR Pelvis 1 or 2 Views Normal [facility] eGFRon 12-18-2022 GFR/1.73 sq M.predicted among non-blacks MDRD (S/P/Bld) [Vol rate/Area] 44 mL/min/1.73 m2 Low >=59 [facility] Comment on above: Order Comment: Order added by Discern Expert. Result Comment: Repair Supervisor earnest kidney disease could be indicated at eGFR's of less than 60 mL/min/1.73m2. Kidney failure is indicated at less than 15 mL/min/1.73m2. Performed By: #### 2 056134, 5188233, 1904018133, 34516582, 49817881 ####[facility] [address] [place] [address] GFR/1.73 sq M.predicted among non-blacks MDRD (S/P/Bld) [Vol rate/Area] 38 mL/min/1.73 m2 Low >=59 [facility] Comment on above: Order Comment: Order added by Discern Expert. Result Comment: Repair Supervisor earnest kidney disease could be indicated at eGFR's of less than 60 mL/min/1.73m2. Kidney failure is indicated at less than 15 mL/min/1.73m2. Performed By: #### 1 [id number], 8339598, 22801976, 1370393, 05345463, 18841496, 3261178 ####[facility] [address] [place] [address] Capillary Glucose POCon 11-22 Glucose [Mass/Vol] 165 mg/dL High 55- [facility] Comment on above: Result Comment: Yazmin bri Meter Performed By: #### 2 [id number] ####[facility] [address]fpvndtlax434 [place] [address] Glucose [Mass/Vol] 184 mg/dL High 55- [facility] Comment on above: Performed By: #### 2 [id number] ####[facility] [address]vns[address]xqe[address] [place] [address] Capillary Glucose POCon 11-22 Glucose [Mass/Vol] 184 mg/dL High 55-99 [facility] Comment on above: Result Comment: Yazmin bri Meter Performed By: #### 2 [id number] ####[facility] [address]wpppsl[address] [place] [address] Glucose [Mass/Vol] 141 mg/dL High 55- [facility] Comment on above: Result Comment: Yazmin bri Meter Performed By: #### 2 [id number] ####[facility] [address]xs[address] [place] [address] Capillary Glucose POCon 11-22 Glucose [Mass/Vol] 183 mg/dL High 55-99 [facility] Comment on above: Result Comment: Yazmin bri Meter Performed By: #### 2 [id number] ####[facility] Vkvtdayibq252 [place] [address] Glucose [Mass/Vol] 147 mg/dL High 55-99 [facility] Comment on above: Result Comment: Yazmin bri Meter Performed By: #### 2 [id number] ####[facility] Kttzxe[address] [place] [address] Capillary Glucose POCon 11-22 Glucose [Mass/Vol] 188 mg/dL High 55-99 [facility] Comment on above: Result Comment: Yazmin bri Meter Performed By: #### 2 [id number] ####[facility] [address] [place] [address] Glucose [Mass/Vol] 162 mg/dL High 55- [facility] Comment on above: Result Comment: Yazmin bri Meter Performed By: #### 2 [id number] ####[facility] [address] [place] [address] Auto Diffon 12-13-2022 Basophils/100 WBC (Bld) 0.0 % Normal 0.0-2.0 [facility] Comment on above: Order Comment: Order Added by Discern Expert. Performed By: #### 1 0525942, 9053609, 546225341, 7506489, 6583991 ####[address] [address] Basophils/Leukocytes Auto (Bld) [Pure # fraction] 0.0 E9/L Normal 0.0-0.2 [facility] Comment on above: Order Comment: Order Added by Discern Expert. Performed By: #### 1 3556954, 3049080, 072103161, 7945769, 2168485 ####[address] [place] [address] Eosinophils/100 WBC (Bld) 7.6 % Normal 0.0-8.0 [facility] Comment on above: Order Comment: Order Added by Discern Expert. Performed By: #### 1 0180669, 2282935, 735052820, 8414651, 9270963 ####[address] [place] [address] Eosinophils/Leukocytes Auto (Bld) [Pure # fraction] 1.0 E9/L High 0.0-0.5 [facility] Comment on above: Order Comment: Order Added by Discern Expert. Performed By: #### 1 4293041, 8551190, 238507993, 1656111, 3169175 ####[address] [address] Lymphocytes/100 WBC (Bld) 10.3 % Low 14.0-50.0 [facility] Comment on above: Order Comment: Order Added by Discern Expert. Performed By: #### 1 5686520, 8349409, 347277448, 9840030, 9652827 ####[address] [address] Lymphocytes/Leukocytes Auto (Bld) [Pure # fraction] 1.3 E9/L Normal 1.0-4.0 [facility] Comment on above: Order Comment: Order Added by Discern Expert. Performed By: #### 1 1506951, 4997074, 604631025, 3227851, 8948536 ####[address] [address] Monocytes/100 WBC (Bld) 9.6 % Normal 4.0-14.0 [facility] Comment on above: Order Comment: Order Added by Discern Expert. Performed By: #### 1 1985329, 0655215, 058279597, 5448574, 1424610 ####[address] [place] [address] Monocytes/Leukocytes Auto (Bld) [Pure # fraction] 1.2 E9/L High 0.2-1.0 [facility] Comment on above: Order Comment: Order Added by Discern Expert. Performed By: #### 1 9052930, 2859823, 515883711, 6633029, 1326378 ####[address] [address] Neutrophils/100 WBC (Bld) 72.5 % Normal 36.0-75.0 [facility] Comment on above: Order Comment: Order Added by Discern Expert. Performed By: #### 1 6976458, 0308951, 467190937, 0821388, 9071415 ####[address] [place] [address] Neutrophils/Leukocytes Auto (Bld) [Pure # fraction] 9.0 E9/L High 2.0-7.5 [facility] Comment on above: Order Comment: Order Added by Discern Expert. Performed By: #### 1 5767481, 2366161, 228784783, 6127535, 8523723 ####[address] [address] CBC w/ Auto Diffon Erythrocyte distribution width (RBC) [Ratio] 15.0 % High 10.9-14.2 [facility] Comment on above: Performed By: #### 1 8760199, 9093138, 069178887, 9841622, 3585098 ####[address] [address] Hematocrit (Bld) [Volume fraction] 45.2 % Normal 37.7-49.0 [facility] Comment on above: Performed By: #### 1 0936615, 8042569, 264660341, 5204771, 5713968 ####[address] [place] [address] Hemoglobin (Bld) [Mass/Vol] 14.8 g/dL Normal 13.5-17.5 [facility] Comment on above: Performed By: #### 1 7018014, 1073249, 563542485, 8732162, 6932456 ####[address] [place] [address] MCH (RBC) [Entitic mass] 27.8 pg Normal 27.0-34.0 [facility] Comment on above: Performed By: #### 1 2131925, 1004909, 234157449, 7887132, 8058658 ####[facility] [address] [place] [address] MCHC (RBC) [Mass/Vol] 32.7 g/dL Normal 31.4-36.0 [facility] Comment on above: Performed By: #### 1 5247214, 3858254, 630027069, 5081044, 3339043 ####[address] [address] MCV (RBC) [Entitic vol] 85.0 fL Normal 80.0-100.0 [facility] Comment on above: Performed By: #### 1 9312260, 7701398, 442128264, 9965595, 0237167 ####[address] [address] Platelet mean volume (Bld) [Entitic vol] 9.4 fL Normal 6.4-10.8 [facility] Comment on above: Performed By: #### 1 6743352, 0725614, 295876147, 9758094, 4892855 ####[address] [address] Platelets (Bld) [#/Vol] 193.0 E9/L Normal 150.0-500.0 [facility] Comment on above: Performed By: #### 1 0999784, 8820603, 765391888, 5359093, 8618884 ####[address] [address] RBC (Bld) [#/Vol] 5.3 E12/L Normal 4.3-5.9 [facility] Comment on above: Performed By: #### 1 1431258, 9356601, 513855955, 2333993, 6667662 ####[address] [address] WBC corrected for nucl RBC Auto (Bld) [#/Vol] 12.5 E9/L High 4.0-11.0 [facility] Comment on above: Performed By: #### 1 2608549, 3476422, 664370725, 3441758, 3362894 ####[facility] [address] [place] [address] CMPon 12-13-2022 Albumin [Mass/Vol] 3.6 g/dL Normal 3.3-5.0 [facility] Comment on above: Performed By: #### 1 8019878, 3416208, 013966254, 4268030, 5757688 ####[address] [place] [address] Albumin/Globulin (S) [Mass conc ratio] 1.0 Low 1.1-2.2 [facility] Comment on above: Performed By: #### 1 7029800, 2464615, 458216415, 2450516, 6341075 ####[address] [place] [address] ALP [Catalytic activity/Vol] 49 Int._Unit/L Normal 21-98 [facility] Comment on above: Performed By: #### 1 5399360, 8778119, 365761623, 5768317, 2447441 ####[facility] [address] [place] [address] ALT No additional P-5'-P [Catalytic activity/Vol] 21 Int._Unit/L Normal 6-46 [facility] Comment on above: Performed By: #### 1 8757479, 5006459, 017816854, 5420392, 1943969 ####[address] [place] [address] Anion gap [Moles/Vol] 16 mmol/L Normal 6-16 [facility] Comment on above: Performed By: #### 1 8360149, 4690794, 289857436, 0957845, 8517653 ####[facility] [address] [place] [address] AST [Catalytic activity/Vol] 21 Int._Unit/L Normal 5-43 [facility] Comment on above: Performed By: #### 1 5016044, 0897518, 946582932, 5332366, 3427979 ####[facility] [address] [place] [address] Bilirubin [Mass/Vol] 0.6 mg/dL Normal 0.0-1.1 [facility] Comment on above: Performed By: #### 1 9675357, 7382735, 253152133, 3077531, 1578151 ####[facility] [address] [place] [address] Calcium [Mass/Vol] 9.4 mg/dL Normal 8.9-11.1 [facility] Comment on above: Performed By: #### 1 5504454, 6858995, 828470741, 7080152, 6018931 ####[facility] [address] [place] [address] Chloride [Moles/Vol] 99 mmol/L Low 101-111 [facility] Comment on above: Performed By: #### 1 8351895, 8517625, 157311473, 9798249, 3119709 ####[facility] [address] [facility] [address] CO2 [Moles/Vol] 31 mmol/L Normal 21-31 [facility] Comment on above: Performed By: #### 1 8077016, 4675523, 405194522, 7770497, 3029773 ####[facility] [address] [place] [address] Creatinine [Mass/Vol] 1.5 mg/dL High 0.5-1.3 [facility] Comment on above: Performed By: #### 1 1108351, 4277954, 605967765, 9295541, 9757119 ####[facility] [address] [place] [address] Globulin (S) [Mass/Vol] 3.7 g/dL Normal 1.4-4.0 [facility] Comment on above: Performed By: #### 1 9939975, 5201989, 704707895, 8847765, 8592429 ####[facility] [address] [place] [address] Glucose [Mass/Vol] 128 mg/dL Normal 55-199 [facility] Comment on above: Result Comment: If t his glucose result represents a fasting glucose, interpretation should refer to the following reference range: 55-99 mg/dL Performed By: #### 1 2826768, 5637166, 504203825, 3950075, 4014548 ####[facility] [address] [place] [address] Potassium [Moles/Vol] 4.1 mmol/L Normal 3.5-5.3 [facility] Comment on above: Performed By: #### 1 7548831, 2062830, 195606507, 7750523, 6146945 ####[facility] [address] [place] [address] Protein [Mass/Vol] 7.3 g/dL Normal 6.0-7.8 [facility] Comment on above: Performed By: #### 1 6644504, 9337358, 095592903, 5236482, 2857253 ####[facility] [address] [place] [address] Sodium [Moles/Vol] 142 mmol/L Normal 135-145 [facility] Comment on above: Performed By: #### 1 1998885, 5068560, 091615795, 7569333, 0378963 ####[facility] [address] [place] [address] Urea nitrogen [Mass/Vol] 57 mg/dL High 5-21 [facility] Comment on above: Performed By: #### 1 9712403, 4139451, 919284653, 3836846, 4626372 ####[facility] [address] [place] [address] Urea nitrogen/Creatinine [Mass ratio] 38 No Units High 10-20 [facility] Comment on above: Performed By: #### 1 3883237, 5440109, 471346081, 8421175, 5342244 ####[facility] [address] [place] [address] Capillary Glucose POCon 07-2 Glucose [Mass/Vol] 256 mg/dL High 55 [facility] Comment on above: Result Comment: Yazmin bri Meter Performed By: #### 2 82315682 ####[facility] [address] [place] [address] Glucose [Mass/Vol] 152 mg/dL High [facility] Comment on above: Result Comment: Yazmin bri Meter Performed By: #### 2 50136182 ####[facility] [address] [place] [address] XfeF4kie 12-13-2022 HbA1c (Bld) [Mass fraction] 6.5 % High <=5.9 [facility] Comment on above: Performed By: #### 1 2630047, 4066276, 740530410, 2538166, 2029828 ####[facility] [address] [place] [address] eGFRon 12-13-2022 GFR/1.73 sq M.predicted among non-blacks MDRD (S/P/Bld) [Vol rate/Area] 47 mL/min/1.73 m2 Low >=59 [facility] Comment on above: Order Comment: Order added by Discern Expert. Result Comment: Repair Supervisor earnest kidney disease could be indicated at eGFR's of less than 60 mL/min/1.73m2. Kidney failure is indicated at less than 15 mL/min/1.73m2. Performed By: #### 1 1646255, 0803730, 884846393, 4734227, 2424840 ####[facility] [address] [place] [address] Capillary Glucose POCon 11-22 Glucose [Mass/Vol] 212 mg/dL High 55- [facility] Comment on above: Result Comment: Yazmin bri Meter Performed By: #### 2 99836707 ####[facility] [address] [place] [address] Glucose [Mass/Vol] 161 mg/dL High 55- [facility] Comment on above: Result Comment: Yazmin bri Meter Performed By: #### 2 50702535 ####[facility] [address] [facility] [place] [address] Capillary Glucose POCon 11-22 Glucose [Mass/Vol] 206 mg/dL [address] Comment on above: Result Comment: Yazmin bri Meter Performed By: #### 2 80842169 ####[facility] [address] [place] [address] Glucose [Mass/Vol] 152 mg/dL [address] Comment on above: Result Comment: Yazmin rbi Meter Performed By: #### 2 69909447 ####[facility] [address] [place] [address] Capillary Glucose POCon 11-22 Glucose [Mass/Vol] 140 mg/dL [address] Comment on above: Result Comment: Yazmin bri Meter Performed By: #### 2 83028482 ####[facility] [address] [place] [address] Capillary Glucose POCon 11-21 Glucose [Mass/Vol] 243 mg/dL [address] Comment on above: Result Comment: Yazmin bri Meter Performed By: #### 2 86413333 ####[facility] [address] [facility] [place] [facility] [place] [address] Glucose [Mass/Vol] 157 mg/dL [address] Comment on above: Result Comment: Yazmin bri Meter Performed By: #### 2 91049600 ####[facility] [address] [place] [address] Capillary Glucose POCon 11-21 Glucose [Mass/Vol] 181 mg/dL [address] Comment on above: Result Comment: Yazmin bri Meter Performed By: #### 2 48766620 ####[facility] [address] [facility] [place] [address] Capillary Glucose POCon 11-21 Glucose [Mass/Vol] 149 mg/dL [address] Comment on above: Result Comment: Yazmin bri Meter Performed By: #### 2 69963952 ####[facility] [address] [place] [address] Glucose [Mass/Vol] 164 mg/dL [address] Comment on above: Result Comment: Yazmin bri Meter Performed By: #### 2 59244260 ####[facility] [address] [place] [address] Capillary Glucose POCon 11-21 Glucose [Mass/Vol] 265 mg/dL High [address] [place] [address] Comment on above: Result Comment: Yazmin bri Meter Performed By: #### 2 30781812 ####[facility] [address] [address] Glucose [Mass/Vol] 129 mg/dL [address] Comment on above: Result Comment: Yazmin bri Meter Performed By: #### 2 82542166 ####[facility] [address] [place] [address] Family Medicine Office/Clini c Noteon 12-06-2022 Family Medicine Office/Clinic Note Normal [facility] Comment on above: Result Comment: Elec tronically Signed By: SHAISTA POTTS, Donta\.br\Date and Time Signed: 12/06/22 21:11 EDT Capillary Glucose POCon 11-21 Glucose [Mass/Vol] 196 mg/dL [address] Comment on above: Result Comment: Yazmin bri Meter Performed By: #### 2 [id number] ####[facility] [address] [place] [address] Glucose [Mass/Vol] 159 mg/dL [address] Comment on above: Result Comment: Yazmin bri Meter Performed By: #### 2 82869384 ####[facility] [address] [place] [address] Capillary Glucose POCon 11-21 Glucose [Mass/Vol] 195 mg/dL [address] Comment on above: Result Comment: Gareth GARDINER Performed By: #### 2 [id number] ####[facility] [address] [place] [address] Insurance Correspondence Off iceon 12-04-2022 Insurance Correspondence Office [id number]#1. 00CD:127 Normal [facility] Physician Orderon 12-03-2022 Physician Order [id number]#1. 00CD:127 Normal [facility] CHEMISTRYOrdered By: Lab ROP User on 12-02-2022 Glucose [Mass/Vol] 227 mg/dL High 55 - 99 mg/dL [facility] POC Subsection Comment on above: Result Comment: Gareth GARDINER POC Device SN [id number] Invalid Interpretation Code FT POC Subsection POC User ID [id number] Invalid Interpretation Code [facility] POC Subsection POC Username KINGSTON JAMISON Invalid Interpretation Code [facility] POC Subsection Glucose [Mass/Vol] 127 mg/dL High 55 - 99 mg/dL [facility] POC Subsection Comment on above: Result Comment: Gareth GARDINER POC Device SN [id number] Invalid Interpretation Code FT POC Subsection POC User ID [id number] Invalid Interpretation Code [facility] POC Subsection POC Username TOYIN REYNOLDS Invalid Interpretation Code [facility] POC Subsection Capillary Glucose POCon 11-21 Glucose [Mass/Vol] 227 mg/dL High 55-99 [facility] Comment on above: Result Comment: Gareth GARDINER Performed By: #### 2 [id number] ####[facility] [address] [place] [address] Glucose [Mass/Vol] 127 mg/dL High 55-99 [facility] Comment on above: Result Comment: Gareth GARDINER Performed By: #### 2 [id number] ####[facility] [address] [place] [address] Coding Queryon 12-02-2022 Coding Query Normal [facility] Discharge Note-Nursingon Discharge Note-Nursing Normal [facility] Inpatient Clinical Summaryon 12-02-2022 Inpatient Clinical Summary Normal [facility] Inpatient Patient Summaryon 12-02-2022 Inpatient Patient Summary Normal [facility] Insurance Correspondence Off iceon 12-02-2022 Insurance Correspondence Office [id number]#[id number] CD:127 Normal [facility] Interdisciplinary Note - Santosh e Manageron 12-02-2022 Interdisciplinary Note - Grain Spouter [facility] Comment on above: Result Comment: Elec tronically Signed By: Dank HAYDEN, Lisa\.br\Date and Time Signed: 12/02/22 09:31 EDT Monitor Recordon 12-02-2022 Monitor Record [id number]#1. 00CD:127 Normal [facility] Physician Orderon 12-02-2022 Physician Order [id number]#1. 00CD:127 Normal [facility] Progress Note-Physicianon Progress Note-Physician [facility] Comment on above: Result Comment: Elec tronically Signed By: Adeline COLEMAN\.br\Date and Time Signed: 12/01/22 18:43 EDT\.br\Electronically Co-Signed By: Juan Hdz DO\.br\Date and Time Co-Signed: 12/02/22 07:20 EDT Transfer Documentson 023 Transfer Documents [id number]#1. 00CD:127 Normal [facility] BMPon 12-01-2022 Anion gap [Moles/Vol] 13 mmol/L Normal 6-16 [facility] Comment on above: Performed By: #### 1 7923112, 7329702, 8736357, 0543604 ####[facility] [address] [place] [address] Calcium [Mass/Vol] 9.1 mg/dL Normal 8.9-11.1 [facility] Comment on above: Performed By: #### 1 2773891, 1144654, 0669288, 5885724 ####[facility] [address] [place] [address] Chloride [Moles/Vol] 102 mmol/L Normal 101-111 [facility] Comment on above: Performed By: #### 1 5562880, 0329744, 1011429, 8889880 ####[facility] [address] [place] [address] CO2 [Moles/Vol] 28 mmol/L Normal 21-31 [facility] Comment on above: Performed By: #### 1 2163954, 4949502, 0035527, 4621545 ####[facility] [address] [place] [address] Creatinine [Mass/Vol] 1.3 mg/dL Normal 0.5-1.3 [facility] Comment on above: Performed By: #### 1 8430096, 5419837, 1019107, 6187015 ####[facility] [address] [place] [address] Glucose [Mass/Vol] 97 mg/dL Normal 55-199 [facility] Comment on above: Result Comment: If t his glucose result represents a fasting glucose, interpretation should refer to the following reference range: 55-99 mg/dL Performed By: #### 1 1102496, 6607220, 4036455, 5667891 ####[facility] [address] [place] [address] Potassium [Moles/Vol] 4.6 mmol/L Normal 3.5-5.3 [facility] Comment on above: Performed By: #### 1 7856736, 7076622, 5379925, 0898329 ####[facility] [address] [place] [address] Sodium [Moles/Vol] 138 mmol/L Normal 135-145 [facility] Comment on above: Performed By: #### 1 6191421, 8590494, 9412148, 2464225 ####[facility] [address] [place] [address] Urea nitrogen [Mass/Vol] 24 mg/dL High 5-21 [facility] Comment on above: Performed By: #### 1 7106375, 1827001, 4451052, 4717055 ####[facility] [address] [place] [address] Urea nitrogen/Creatinine [Mass ratio] 18 No Units Normal 10-20 [facility] Comment on above: Performed By: #### 1 9183653, 5785308, 4649727, 8939589 ####[facility] [facility] [address] [place] [address] CHEMISTRYOrdered By: Lab ROP User on 12-01-2022 Glucose [Mass/Vol] 114 mg/dL High 55 - 99 mg/dL [facility] POC Subsection Comment on above: Result Comment: Gareth guerrero RN/ POC Device SN [id number] Invalid Interpretation Code [facility] POC Subsection POC User ID [id number] Invalid Interpretation Code [facility] POC Subsection POC Username NETO CHEEK Invalid Interpretation Code [facility] POC Subsection CHEMISTRYOrdered By: SYSTEM SYSTEM on 12-01-2022 Anion gap [Moles/Vol] 13 mmol/L Normal 6 - 16 mEq/L [facility] Remisol Calcium [Mass/Vol] 9.1 mg/dL Normal 8.9 - 11. 1 mg/dL FT Remisol Chloride [Moles/Vol] 102 mmol/L Normal 101 - 1 11 mmol/L FT Remisol CK [Catalytic activity/Vol] 211 [iU]/d Normal 14 - 261 Int._Unit/L [facility] Remisol CO2 [Moles/Vol] 28 mmol/L Normal 21 - 31 mmol/L FT Remisol Creatinine [Mass/Vol] 1.3 mg/dL Normal 0.5 - 1.3 mg/dL [facility] Remisol GFR/1.73 sq M.predicted among non-blacks MDRD (S/P/Bld) [Vol rate/Area] 56 mL/min/1.73 m2 Low >=59mL/min/ 1.73 m2 [facility] Chem S Glucose [Mass/Vol] 97 mg/dL Normal 55 - 199 mg/dL FT Remisol Magnesium [Mass/Vol] 2.1 mg/dL Normal 1.3 - 2 .4 mg/dL FT Remisol Potassium [Moles/Vol] 4.6 mmol/L Normal 3.5 - 5.3 mmol/L [facility] Remisol Sodium [Moles/Vol] 138 mmol/L Normal 135 - 145 mmol/L [facility] Remisol Urea nitrogen [Mass/Vol] 24 mg/dL High 5 - 21 mg/dL [facility] Remisol Urea nitrogen/Creatinine [Mass ratio] 18 mg/mg Normal 10 - 20 [facility] Remisol CKon 12-01-2022 CK [Catalytic activity/Vol] 211 Int._Unit/L Normal 14-261 [facility] Comment on above: Performed By: #### 1 [id number], 5365841, 7896800, 0889545 ####[facility] [address] [place] [address] Capillary Glucose POCon 11-21 Glucose [Mass/Vol] 114 mg/dL High 55-99 [facility] Comment on above: Result Comment: Gareth GARDINER Performed By: #### 2 [id number] ####[facility] [address] [place] [address] Glucose [Mass/Vol] 193 mg/dL High 55-99 [facility] Comment on above: Result Comment: Gareth GARDINER Performed By: #### 2 [id number] ####[facility] [address] [place] [address] Glucose [Mass/Vol] 203 mg/dL High 55-99 [facility] Comment on above: Result Comment: Gareth GARDINER Performed By: #### 2 [id number] ####[facility] [address] [place] [address] Glucose [Mass/Vol] 110 mg/dL High 55-99 [facility] Comment on above: Result Comment: Gareth GARDINER Performed By: #### 2 [id number] ####[facility] [address] [place] [address] Interdisciplinary Note - Santosh e Manageron 12-01-2022 Interdisciplinary Note - Grain Spouter Pt is asleep in bed, no family present. Pt is accepted to [facility] side, pending precert at this time. Contact information provided and white board updated, CRM following Normal [facility] Comment on above: Result Comment: Elec tronically Signed By: Dank HAYDEN, Lisa\.br\Date and Time Signed: 12/01/22 08:20 EDT Ionized Calciumon 12-01-2022 Calcium.ionized ISE [Mass/Vol] 4.8 mg/dL Invalid Interpretation Code 4.5-5.6 [facility] Comment on above: Result Comment: Perf ormed at: [facility] [address] [place], [place] [id number] PhD Michael Cortes Performed By: #### 2 724438, 8398228, 2504077, 16672162, 86842806, 2940872, 00739230, 9786153, 54708404, 324718584, 1229648, 4558636 ####[facility] [address] [place] [address] Magnesiumon 12-01-2022 Magnesium [Mass/Vol] 2.1 mg/dL Normal 1.3-2.4 [facility] Comment on above: Performed By: #### 1 0880987, 5208646, 8957087, 3487503 ####[facility] [address] [place] [address] Progress Note-Physicianon Progress Note-Physician Normal [facility] Comment on above: Result Comment: Elec tronically Signed By: Pao POTTS, Lizeth\.br\Date and Time Signed: 12/01/22 12:41 EDT XR Abdomen 1 Viewon 12-02-19 23 XR Abdomen 1 View Normal [facility] eGFRon 12-01-2022 GFR/1.73 sq M.predicted among non-blacks MDRD (S/P/Bld) [Vol rate/Area] 56 mL/min/1.73 m2 Low >=59 [facility] Comment on above: Order Comment: Order added by Discern Expert. Result Comment: Repair Supervisor earnest kidney disease could be indicated at eGFR's of less than 60 mL/min/1.73m2. Kidney failure is indicated at less than 15 mL/min/1.73m2. Performed By: #### 1 0750207, 1971422, 1097336, 2950874 ####[facility] [address] [place] [address] BMPon 11-30-2022 Anion gap [Moles/Vol] 11 mmol/L Normal 6-16 [facility] Comment on above: Performed By: #### 2 437930, 9759403, 37415558 ####[facility] [address] [place] [address] Calcium [Mass/Vol] 9.0 mg/dL Normal 8.9-11.1 [facility] Comment on above: Performed By: #### 2 934850, 3454139, 57486688 ####[facility] [address] [address] Chloride [Moles/Vol] 102 mmol/L Normal 101-111 [facility] Comment on above: Performed By: #### 2 086330, 6212488, 86431832 ####[facility] [address] [place] [address] CO2 [Moles/Vol] 31 mmol/L Normal 21-31 [facility] Comment on above: Performed By: #### 2 488346, 2967956, 74717112 ####[facility] [address] [place] [address] Creatinine [Mass/Vol] 1.1 mg/dL Normal 0.5-1.3 [facility] Comment on above: Performed By: #### 2 802307, 4225387, 25481183 ####[facility] [address] [address] Glucose [Mass/Vol] 114 mg/dL Normal 55-199 [facility] Comment on above: Result Comment: If t his glucose result represents a fasting glucose, interpretation should refer to the following reference range: 55-99 mg/dL Performed By: #### 2 578447, 6776158, 63066473 ####[facility] [address] [place] [address] Potassium [Moles/Vol] 3.4 mmol/L Low 3.5-5.3 [facility] Comment on above: Performed By: #### 2 357767, 9640126, 37545068 ####[facility] [address] [place] [address] Sodium [Moles/Vol] 141 mmol/L Normal 135-145 [facility] Comment on above: Performed By: #### 2 286863, 2839380, 24044749 ####[facility] [address] [place] [address] Urea nitrogen [Mass/Vol] 23 mg/dL High 5-21 [facility] Comment on above: Performed By: #### 2 006021, 4790574, 51327245 ####[facility] [address] [place] [address] Urea nitrogen/Creatinine [Mass ratio] 21 No Units High 10-20 [facility] Comment on above: Performed By: #### 2 866716, 8545086, 34800478 ####[facility] [address] [place] [address] CHEMISTRYOrdered By: SYSTEM SYSTEM on 11-30-2022 Anion gap [Moles/Vol] 11 mmol/L Normal 6 - 16 mEq/L [facility] Remisol Calcium [Mass/Vol] 9.0 mg/dL Normal 8.9 - 11. 1 mg/dL [facility] Remisol Chloride [Moles/Vol] 102 mmol/L Normal 101 - 1 11 mmol/L [facility] Remisol CO2 [Moles/Vol] 31 mmol/L Normal 21 - 31 mmol/L [facility] Remisol Creatinine [Mass/Vol] 1.1 mg/dL Normal 0.5 - 1.3 mg/dL [facility] Remisol GFR/1.73 sq M.predicted among non-blacks MDRD (S/P/Bld) [Vol rate/Area] 69 mL/min/1.73 m2 Normal >=59mL/min/ 1.73 m2 [facility] Chem S Glucose [Mass/Vol] 114 mg/dL Normal 55 - 199 mg/dL FT Remisol Magnesium [Mass/Vol] 1.8 mg/dL Normal 1.3 - 2 .4 mg/dL [facility] Remisol Potassium [Moles/Vol] 3.4 mmol/L Low 3.5 - 5.3 mmol/L [facility] Remisol Sodium [Moles/Vol] 141 mmol/L Normal 135 - 145 mmol/L [facility] Remisol Urea nitrogen [Mass/Vol] 23 mg/dL High 5 - 21 mg/dL [facility] Remisol Urea nitrogen/Creatinine [Mass ratio] 21 mg/mg High 10 - 20 [facility] Remisol Capillary Glucose POCon 11-21 Glucose [Mass/Vol] 194 mg/dL High 55-99 [facility] Comment on above: Result Comment: Gareth GARDINER Performed By: #### 2 [id number] ####[facility] [address] [place] [address] Glucose [Mass/Vol] 96 mg/dL Normal 55-99 [facility] Comment on above: Performed By: #### 2 [id number] ####[facility] [address] [place] [address] Glucose [Mass/Vol] 130 mg/dL High 55-99 [facility] Comment on above: Result Comment: Garteh GARDINER Performed By: #### 2 97081971 ####[facility] [address] [place] [address] Glucose [Mass/Vol] 113 mg/dL High 55-99 [facility] Comment on above: Result Comment: Gareth GARDINER Performed By: #### 2 53968704 ####[facility] [address] [place] [address] Echo Transthoracic Completeo n 11-30-2022 Echo Transthoracic Complete Normal [facility] Insurance Correspondence Off iceon 11-30-2022 Insurance Correspondence Office [id number] 0CD:[id number] Normal [facility] Interdisciplinary Note - Santosh e Manageron 11-30-2022 Interdisciplinary Note - Grain Spouter Normal [facility] Comment on above: Result Comment: Elec tronically Signed By: Dank HAYDEN, Lisa\.br\Date and Time Signed: 11/30/22 10:48 EDT Magnesiumon 11-30-2022 Magnesium [Mass/Vol] 1.8 mg/dL Normal 1.3-2.4 [facility] Comment on above: Performed By: #### 2 357594, 2076320, 34716555 ####[facility] [address] [place] [address] Message from Medicareon 11-21 Message from Medicare [id number] 0CD:127 Normal [facility] Progress Note-Physicianon Progress Note-Physician Normal [facility] Comment on above: Result Comment: Elec tronically Signed By: Joanie Jiménez MD\.br\Date and Time Signed: 11/30/22 15:13 EDT Progress Note-Physician Normal [facility] Comment on above: Result Comment: Elec tronically Signed By: Lizeth Cedeno MD\.br\Date and Time Signed: 11/30/22 14:52 EDT UA With Cult Reflexon 2022 Bacteria LM Ql (Urine sed) TRACE Normal Trace [facility] Comment on above: Order Comment: Urina ry Catheter Insertion triggered Urinalysis With Culture Reflex order by discern. Performed By: #### 1 [id number] ####[facility] [address] [place] [address] Bilirubin Ql (U) Negative Normal Negative [facility] Comment on above: Order Comment: Urina ry Catheter Insertion triggered Urinalysis With Culture Reflex order by discern. Performed By: #### 1 6469965 ####[facility] [address] [place] [address] Clarity (U) CLEAR Normal Clear [facility] Comment on above: Order Comment: Urina ry Catheter Insertion triggered Urinalysis With Culture Reflex order by discern. Performed By: #### 1 0079750 ####[facility] [address] [place] [address] Color (U) YELLOW Normal Yellow [facility] Comment on above: Order Comment: Urina ry Catheter Insertion triggered Urinalysis With Culture Reflex order by discern. Performed By: #### 1 8130710 ####[facility] [address] [place] [address] Epithelial cells.squamous LM.HPF (Urine sed) [#/Area] 0-2 Normal 0-2 [facility] Comment on above: Order Comment: Urina ry Catheter Insertion triggered Urinalysis With Culture Reflex order by discern. Performed By: #### 1 7769069 ####[facility] [address] [place] [address] Glucose Test strip (U) [Mass/Vol] Negative Normal Negative [facility] Comment on above: Order Comment: Urina ry Catheter Insertion triggered Urinalysis With Culture Reflex order by discern. Performed By: #### 1 7922805 ####[address] [address] Hemoglobin Ql (U) Negative Normal Negative [facility] Comment on above: Order Comment: Urina ry Catheter Insertion triggered Urinalysis With Culture Reflex order by discern. Performed By: #### 1 5889947 ####[address] [address] Ketones (U) [Mass/Vol] Negative Normal Negative [facility] Comment on above: Order Comment: Urina ry Catheter Insertion triggered Urinalysis With Culture Reflex order by discern. Performed By: #### 1 5949262 ####[address] [address] [place].plasma/[place].R BC (Bld) [Mass ratio] 0-3 Normal 0-3 [facility] Comment on above: Order Comment: Urina ry Catheter Insertion triggered Urinalysis With Culture Reflex order by discern. Performed By: #### 1 6153706 ####[facility] [address] [place] [address] Nitrite Ql (U) Negative Normal Negative [facility] Comment on above: Order Comment: Urina ry Catheter Insertion triggered Urinalysis With Culture Reflex order by discern. Performed By: #### 1 4989715 ####[address] [place] [address] pH (U) 6.0 [pH] Invalid Interpretation Code 5.0-9.0 [facility] Comment on above: Order Comment: Urina ry Catheter Insertion triggered Urinalysis With Culture Reflex order by discern. Performed By: #### 1 8375760 ####[address] [address] Protein (U) [Mass/Vol] Negative Normal Negative [facility] Comment on above: Order Comment: Urina ry Catheter Insertion triggered Urinalysis With Culture Reflex order by discern. Performed By: #### 1 7767843 ####[address] [address] Specific gravity (U) [Rel density] 1.010 Invalid Interpretation Code 1.005-1.030 [facility] Comment on above: Order Comment: Urina ry Catheter Insertion triggered Urinalysis With Culture Reflex order by discern. Performed By: #### 1 6346569 ####[address] [address] Type of Urine collection method Red Normal [facility] Comment on above: Order Comment: Urina ry Catheter Insertion triggered Urinalysis With Culture Reflex order by discern. Performed By: #### 1 8383101 ####[address] [address] Urobilinogen Qn (U) 0.2 {Lei'U}/dL Normal 0.0-1.0 [facility] Comment on above: Order Comment: Urina ry Catheter Insertion triggered Urinalysis With Culture Reflex order by discern. Performed By: #### 1 8902210 ####[address] [address] WBC Auto Ql (U) Negative Normal Negative [facility] Comment on above: Order Comment: Urina ry Catheter Insertion triggered Urinalysis With Culture Reflex order by discern. Performed By: #### 1 2230263 ####[address] [address] WBC casts LM.LPF (Urine sed) [#/Area] 0-3 Normal [facility] Comment on above: Order Comment: Urina ry Catheter Insertion triggered Urinalysis With Culture Reflex order by discern. Performed By: #### 1 7579641 ####[facility] [address] [place] [address] WBC LM.HPF (Urine sed) [#/Area] 0-5 Normal 0-5 [facility] Comment on above: Order Comment: Urina ry Catheter Insertion triggered Urinalysis With Culture Reflex order by discern. Performed By: #### 1 3550692 ####[facility] [address] [place] [address] URINALYSISOrdered By: Houston Castillo on 11-30-2022 Bacteria [...] AM) Normal Negative [facility] UA Auto SS [place].plasma/[place].R BC (Bld) [Mass ratio] 0-3 /HPF Normal [...] AM) Invalid Interpretation Code 1.005 - 1.030 [facility] UA Auto SS UA Spec Desc Red (11/30/22 11:00 AM) Normal [facility] UA Auto SS Urobilinogen Qn (U) 0.9361803 {Lei'U}/dL Normal 0.0 - 1.0 EU/dL [facility] UA Auto SS WBC Auto Ql (U) Negative (11/30/22 11:00 AM) Normal Negative [facility] UA Auto SS WBC casts LM.LPF (Urine sed) [#/Area] 0-3 (11/30/22 11:00 AM) Normal [facility] UA Auto SS WBC LM.HPF (Urine sed) [#/Area] 0-5 /HPF Normal 0-5/HPF [facility] UA Auto SS eGFRon 11-30-2022 GFR/1.73 sq M.predicted among non-blacks MDRD (S/P/Bld) [Vol rate/Area] 69 mL/min/1.73 m2 Normal >=59 [facility] Comment on above: Order Comment: Order added by Discern Expert. Result Comment: Repair Supervisor earnest kidney disease could be indicated at eGFR's of less than 60 mL/min/1.73m2. Kidney failure is indicated at less than 15 mL/min/1.73m2. Performed By: #### 2 019175, 3052652, 14849731 ####[facility] [address] [place] [address] Auto Diffon 11-29-2022 Basophils/100 WBC (Bld) 0.5 % Normal 0.0-2.0 [facility] Comment on above: Order Comment: Order Added by Discern Expert. Performed By: #### 2 001078, 2255094, 4355820, 42841793, 03432915, 3095229, 98832813, 0163785, 78933159, 251618085, 9017686, 0917366 ####[facility] [address] [place] [address] Basophils/Leukocytes Auto (Bld) [Pure # fraction] 0.0 E9/L Normal 0.0-0.2 [facility] Comment on above: Order Comment: Order Added by Discern Expert. Performed By: #### 2 409385, 7509519, 6927022, 50451454, 50479915, 4001860, 18126093, 3445096, 18851437, 665486668, 3948119, 2496047 ####[facility] [address] [place] [address] Eosinophils/100 WBC (Bld) 8.4 % High 0.0-8.0 [facility] Comment on above: Order Comment: Order Added by Discern Expert. Performed By: #### 2 179909, 1944825, 4165235, 15944731, 44832394, 4041459, 61785778, 8638920, 02645873, 150437061, 0545523, 5796966 ####[address] [address] Eosinophils/Leukocytes Auto (Bld) [Pure # fraction] 0.6 E9/L High 0.0-0.5 [facility] Comment on above: Order Comment: Order Added by Discern Expert. Performed By: #### 2 696364, 0208486, 7870842, 53010247, 07306619, 0071461, 08389211, 1346155, 53187920, 772381281, 3464133, 0212640 ####[address] [place] [address] Lymphocytes/100 WBC (Bld) 15.8 % Normal 14.0-50.0 [facility] Comment on above: Order Comment: Order Added by Discern Expert. Performed By: #### 2 231687, 3551117, 5614566, 76543829, 11056863, 0329860, 76967070, 0557201, 68057122, 696481429, 5857988, 0613214 ####[address] [place] [address] Lymphocytes/Leukocytes Auto (Bld) [Pure # fraction] 1.2 E9/L Normal 1.0-4.0 [facility] Comment on above: Order Comment: Order Added by Discern Expert. Performed By: #### 2 614311, 2419654, 8151745, 44413266, 66899518, 2879313, 42059200, 5622250, 18117780, 009660154, 7122061, 8650899 ####[facility] [address] [place] [address] Monocytes/100 WBC (Bld) 8.4 % Normal 4.0-14.0 [facility] Comment on above: Order Comment: Order Added by Discern Expert. Performed By: #### 2 788299, 4828568, 6501127, 33574770, 74809566, 2490191, 04817532, 2921819, 83860059, 185960231, 3970303, 2666585 ####[address] [address] Monocytes/Leukocytes Auto (Bld) [Pure # fraction] 0.6 E9/L Normal 0.2-1.0 [facility] Comment on above: Order Comment: Order Added by Discern Expert. Performed By: #### 2 366646, 7387473, 8980040, 52892429, 78582693, 0902975, 55584399, 4037999, 34372255, 644637579, 7518761, 1815705 ####[facility] [address] [place] [address] Neutrophils/100 WBC (Bld) 66.9 % Normal 36.0-75.0 [facility] Comment on above: Order Comment: Order Added by Discern Expert. Performed By: #### 2 646561, 9725651, 8969989, 92940493, 07962773, 0933092, 97218329, 7436372, 74297662, 881257097, 0308184, 6784401 ####[facility] [address] [place] [address] Neutrophils/Leukocytes Auto (Bld) [Pure # fraction] 5.0 E9/L Normal 2.0-7.5 [facility] Comment on above: Order Comment: Order Added by Discern Expert. Performed By: #### 2 008922, 4148709, 4933829, 87436837, 12980678, 8860773, 01132332, 4019563, 67456087, 264981012, 7042995, 3646870 ####[facility] [address] [place] [address] BMPon 11-29-2022 Anion gap [Moles/Vol] 13 mmol/L Normal 6-16 [facility] Comment on above: Performed By: #### 2 900693, 3056545, 8010235, 29178527, 40612042, 5732324, 54202729, 4010075, 34065882, 464775160, 4056863, 6572671 ####[facility] [address] [place] [address] Calcium [Mass/Vol] 9.1 mg/dL Normal 8.9-11.1 [facility] Comment on above: Performed By: #### 2 377976, 2986959, 5171023, 06756088, 80442207, 5770852, 62630580, 0257862, 73748264, 343018455, 1282857, 4211510 ####[facility] [address] [place] [address] Chloride [Moles/Vol] 102 mmol/L Normal 101-111 [facility] Comment on above: Performed By: #### 2 724322, 8945343, 2750392, 17791905, 80708204, 8183131, 78751793, 0755780, 83462712, 882523038, 2497927, 6125784 ####[facility] [address] [place] [address] CO2 [Moles/Vol] 29 mmol/L Normal 21-31 [facility] Comment on above: Performed By: #### 2 290608, 4832222, 3885860, 52835285, 86490859, 6681365, 87238288, 2120139, 56312836, 732443106, 2113954, 7530415 ####[facility] [address] [place] [address] Creatinine [Mass/Vol] 1.1 mg/dL Normal 0.5-1.3 [facility] Comment on above: Performed By: #### 2 522043, 6158466, 5877117, 86158206, 66738589, 3473481, 59546826, 6918910, 16887060, 584078900, 4215463, 3272035 ####[facility] [facility] [address] [place] [address] Glucose [Mass/Vol] 95 mg/dL Normal 55-199 [facility] Comment on above: Result Comment: If t his glucose result represents a fasting glucose, interpretation should refer to the following reference range: 55-99 mg/dL Performed By: #### 2 419452, 2971061, 1865081, 34462536, 09658489, 3074322, 63110876, 3164718, 81789175, 500891304, 4247275, 0572896 ####[facility] [address] [place] [address] Potassium [Moles/Vol] 3.9 mmol/L Normal 3.5-5.3 [facility] Comment on above: Performed By: #### 2 631538, 3245857, 8341523, 86154029, 56687462, 9208091, 75700877, 9452328, 39815263, 875554966, 0681354, 2471355 ####[facility] [address] [place] [address] Sodium [Moles/Vol] 140 mmol/L Normal 135-145 [facility] Comment on above: Performed By: #### 2 946409, 5416342, 8681340, 55989389, 64936860, 9292460, 86105592, 7203635, 13528765, 483171265, 5159492, 4725209 ####[facility] [address] [place] [address] Urea nitrogen [Mass/Vol] 16 mg/dL Normal 5-21 [facility] Comment on above: Performed By: #### 2 493679, 0203955, 5574607, 28221102, 65374112, 4630763, 03070107, 3780224, 37121140, 398456358, 3470767, 4179852 ####[facility] [address] [place] [address] Urea nitrogen/Creatinine [Mass ratio] 14 No Units Normal 10-20 [facility] Comment on above: Performed By: #### 2 320710, 7885893, 2253828, 40176355, 24551006, 8101138, 61759465, 0230715, 56233247, 267436113, 3337295, 3188748 ####[facility] [address] [place] [address] BNPon 11-29-2022 Natriuretic peptide B (Bld) [Mass/Vol] 855 pg/mL High 5-80 [facility] Comment on above: Performed By: #### 2 170584, 3487524, 0080642, 34207408, 91801113, 1182285, 89680322, 9516164, 79244212, 176979317, 1232299, 1139825 ####[facility] [address] [place] [address] CBC w/ Auto Diffon 3 Erythrocyte distribution width (RBC) [Ratio] 14.9 % High 10.9-14.2 [facility] Comment on above: Performed By: #### 2 723855, 7412703, 1471538, 95891085, 77007966, 9647555, 93313350, 6612882, 66698995, 645155597, 8531395, 9348100 ####[facility] [address] [place] [address] Hematocrit (Bld) [Volume fraction] 38.1 % Normal 37.7-49.0 [facility] Comment on above: Performed By: #### 2 185495, 4353531, 7788359, 02353317, 09890174, 3504384, 11957404, 0960918, 79301087, 330916056, 6894217, 0217412 ####[facility] [address] [place] [address] Hemoglobin (Bld) [Mass/Vol] 12.8 g/dL Low 13.5-17.5 [facility] Comment on above: Performed By: #### 2 529029, 4516618, 0480175, 32516313, 51541803, 5958854, 45067700, 0674275, 32994823, 125826047, 4717631, 5175333 ####[facility] [address] [place] [address] MCH (RBC) [Entitic mass] 29.0 pg Normal 27.0-34.0 [facility] Comment on above: Performed By: #### 2 480547, 7863407, 7703551, 79694823, 34296195, 5407139, 25855892, 0774757, 92488511, 393005647, 1542096, 4374498 ####[address] [address] MCHC (RBC) [Mass/Vol] 33.7 g/dL Normal 31.4-36.0 [facility] Comment on above: Performed By: #### 2 817670, 0269772, 3587119, 38974596, 56039012, 5673314, 54973766, 0956901, 86874939, 794658135, 1291343, 6622343 ####[facility] [address] [place] [address] MCV (RBC) [Entitic vol] 86.1 fL Normal 80.0-100.0 [facility] Comment on above: Performed By: #### 2 576780, 3228721, 2821673, 33951411, 27620544, 2654967, 17113472, 9372459, 66206961, 273102435, 1139353, 4235275 ####[facility] [address] [place] [address] Platelet mean volume (Bld) [Entitic vol] 10.9 fL High 6.4-10.8 [facility] Comment on above: Performed By: #### 2 795767, 4541955, 9016974, 39522293, 06256989, 1021718, 46350998, 7319557, 04054618, 789868013, 4394723, 8810932 ####[address] [place] [address] Platelets (Bld) [#/Vol] 189.0 E9/L Normal 150.0-500.0 [facility] Comment on above: Performed By: #### 2 010486, 5305901, 4412633, 87472639, 60416419, 3831996, 13596277, 5124347, 50369241, 096304531, 7318496, 2934446 ####[address] [address] RBC (Bld) [#/Vol] 4.4 E12/L Normal 4.3-5.9 [facility] Comment on above: Performed By: #### 2 686785, 3544518, 6999206, 54693837, 80596918, 7582522, 14667244, 3587779, 10962269, 352071007, 7599238, 5747210 ####[address] [place] [address] WBC corrected for nucl RBC Auto (Bld) [#/Vol] 7.4 E9/L Normal 4.0-11.0 [facility] Comment on above: Performed By: #### 2 393627, 5428572, 9896818, 41696956, 91105299, 7525678, 97967820, 2334116, 21922856, 962482404, 4937789, 4280217 ####[address] [address] CHEMISTRYOrdered By: SYSTEM SYSTEM on 11-29-2022 Albumin [...] Triglyceride [Mass/Vol] 72 mg/dL Normal <=149mg/dL F [facility] Remisol TSH Qn 3.43 m[IU]/L Normal 0.34 [...] 855 pg/mL High 5 - 80 pg/mL [facility] HemeManSS CHEMISTRYOrdered By: Marian peterson DomainUser on 11-29-2022 Calcium.ionized ISE [Mass/Vol] 4.8 mg/dL Invalid Interpretation Code 4.5-5.6mg/d L [facility] SendOutsSS Comment on above: Result Comment: Perf ormed at: [facility] [address] [place], [place] [id number] PhD Chasejosie Sebastian Thon 11-29-2022 CK [Catalytic activity/Vol] 1096 Int._Unit/L Abnormal 14-261 [facility] Comment on above: Result Comment: Crit ical Result verified by repeat analysis\Critical Result S_CK:[id number] Called to MANAS BARBA AT by AMY JOHNSON and read back for confirmation at 11/29/2022 06:40:15 Performed By: #### 2 361620, 7185773, 4984986, 42566756, 47232906, 7794819, 77244941, 6275957, 84656803, 321333444, 7342434, 9614904 ####[facility] [address] [place] [address] CT Abdomen/Pelvis w/ Contras ton 11-29-2022 CT Abdomen/Pelvis w/ Contrast Normal [facility] CT Head or Brain w/o Contras ton 11-29-2022 CT Head or Brain w/o Contrast Normal [facility] CTA Cheston 11-29-2022 CTA Chest Normal [facility] Capillary Glucose POCon Glucose [Mass/Vol] 122 mg/dL High 55-99 [facility] Comment on above: Result Comment: Gareth GARDINER Performed By: #### 2 [id number] ####[facility] [address] [place] [address] Glucose [Mass/Vol] 174 mg/dL High 55-99 [facility] Comment on above: Performed By: #### 2 32446997 ####[facility] [address] [place] [address] Glucose [Mass/Vol] 107 mg/dL High 55-99 [facility] Comment on above: Result Comment: Gareth GARDINER Performed By: #### 2 46193284 ####[facility] [address] [place] [address] Consultation Noteon 11-30-19 Consultation Note Normal [facility] Comment on above: Result Comment: Elec tronically Signed By: New Velazquez MD\.br\Date and Time Signed: 11/29/22 14:44 EDT ED Clinical Summaryon 2022 ED Clinical Summary Normal Navi faye [facility] ED Note-Physicianon 11-30-19 ED Note-Physician Normal [facility] Comment on above: Result Comment: Elec tronically Signed By: Elkin Hitchcock DO.br\Date and Time Signed: 11/28/22 22:32 EDT ED Patient Education Noteon 11-29-2022 ED Patient Education Note Normal [facility] ED Patient Summaryon 023 ED Patient Summary Normal [facility] HEMATOLOGYOrdered By: SYSTEM SYSTEM on 11-29-2022 [...] [Mass/Vol] 3.6 g/dL Normal 3.3-5.0 [facility] Comment on above: Performed By: #### 2 446584, 7128365, 1724588, 47031020, 33739686, 8428760, 75217262, 3852379, 99088647, 667164048, 3147578, 7523516 ####[facility] [address] [place] [address] Albumin/Globulin (S) [Mass conc ratio] 1.2 Normal 1.1-2.2 [facility] Comment on above: Performed By: #### 2 419361, 8976731, 8203457, 64606468, 13085825, 1874784, 38124779, 0062380, 85828480, 873978978, 9503815, 4642045 ####[facility] [address] [place] [address] ALP [Catalytic activity/Vol] 40 Int._Unit/L Normal 21-98 [facility] Comment on above: Performed By: #### 2 969488, 3586900, 5918095, 85038022, 24141096, 8610313, 83404469, 3346353, 46645392, 463469572, 5908489, 8498608 ####[address] [place] [address] ALT No additional P-5'-P [Catalytic activity/Vol] 17 Int._Unit/L Normal 6-46 [facility] Comment on above: Performed By: #### 2 249828, 2757707, 6936039, 14081189, 53882265, 0758750, 05374180, 1740335, 82594735, 321619423, 3978999, 3188435 ####[address] [address] AST [Catalytic activity/Vol] 33 Int._Unit/L Normal 5-43 [facility] Comment on above: Performed By: #### 2 712106, 7000865, 1864691, 16238851, 94300351, 3651721, 58708858, 1716811, 45028976, 732090140, 7088027, 2110368 ####[facility] [address] [place] [address] Bilirubin [Mass/Vol] 1.1 mg/dL Normal 0.0-1.1 [facility] Comment on above: Performed By: #### 2 132264, 3307061, 4950748, 47107502, 21436360, 7503176, 32405036, 1715622, 30497470, 252295155, 5800241, 3814161 ####[address] [place] [address] Bilirubin.direct [Mass/Vol] 0.2 mg/dL Normal 0.1-0.4 [facility] Comment on above: Performed By: #### 2 099531, 4017286, 1025862, 42566697, 95031683, 5089198, 48798234, 8189489, 73904433, 228672157, 9053379, 2105917 ####[facility] [address] [place] [address] Bilirubin.indirect [Mass or moles/Vol] 0.9 mg/dL Normal 0.1-0.9 [facility] Comment on above: Performed By: #### 2 735695, 2533994, 5826405, 13964208, 85836812, 7070861, 55605699, 9171019, 41601914, 183220130, 3976477, 9004687 ####[facility] [address] [place] [address] Globulin (S) [Mass/Vol] 3.1 g/dL Normal 1.4-4.0 [facility] Comment on above: Performed By: #### 2 718304, 6532893, 6191374, 92907489, 89381065, 0849360, 86284706, 3936696, 00343778, 797081680, 4766839, 9027888 ####[facility] [address] [place] [address] Protein [Mass/Vol] 6.7 g/dL Normal 6.0-7.8 [facility] Comment on above: Performed By: #### 2 336883, 7308399, 6148451, 05265298, 65696242, 0514845, 91866604, 9590400, 92969580, 828229567, 3728718, 4310078 ####[facility] [address] [place] [address] Interdisciplinary Note - Santosh e Manageron 11-29-2022 Interdisciplinary Note - Grain Spouter Normal [facility] Comment on above: Result Comment: Elec tronically Signed By: Jose RN, Norma\.br\Date and Time Signed: 11/29/22 15:07 EDT Lipid Panelon 11-29-2022 Cholesterol [Mass/Vol] 114 mg/dL Low 120-200 [facility] Comment on above: Performed By: #### 2 302411, 8458476, 6905794, 84640683, 72675662, 5935611, 21603123, 7674814, 16137481, 146940080, 9457798, 9225524 ####[facility] [address] [place] [address] Cholesterol in HDL [Mass/Vol] 50 mg/dL Invalid Interpretation Code [facility] Comment on above: Result Comment: HDL > or equal to 60 mg/dL: Low cardiovascular riskHDL < 40 mg/dL : High cardiovascular risk Performed By: #### 2 824955, 7516009, 1895723, 12655000, 06232468, 3817193, 97753350, 5705535, 84868442, 248170421, 5826051, 6758496 ####[facility] [address] [place] [address] Cholesterol in LDL [Mass/Vol] 43 mg/dL Normal <=129 [facility] Comment on above: Performed By: #### 2 166632, 8004355, 7046194, 60367182, 53688406, 5653444, 98612733, 5769271, 59645451, 578445825, 8705612, 0784586 ####[facility] [address] [place] [address] Cholesterol in VLDL [Mass/Vol] 14 mg/dL Normal 7-40 [facility] Comment on above: Performed By: #### 2 123871, 2103706, 6403308, 35091226, 43015207, 0723032, 33415681, 1983860, 66171420, 728193640, 0198365, 4393040 ####[facility] [address] [address] Triglyceride [Mass/Vol] 72 mg/dL Normal <=149 F [facility] Comment on above: Performed By: #### 2 332687, 5784038, 7362100, 27271415, 06067485, 3499395, 76415790, 8372721, 88173504, 774766625, 8231981, 1483806 ####[facility] [address] [place] [address] Monitor Recordon 11-29-2022 Monitor Record [id number]#1. 00CD:127 Normal [facility] Monitor Record [id number]#1. 00CD:127 Normal [facility] Monitor Record [id number]#1. 00CD:127 Normal [facility] Monitor Record [id number]#1. 00CD:127 Normal [facility] Monitor Record [id number]#1. 00CD:127 Normal [facility] Monitor Record [id number]#1. 00CD:127 Normal [facility] Monitor Record [id number]#1. 00CD:127 Normal [facility] Monitor Record [id number]#1. 00CD:127 Normal [facility] Progress Note-Physicianon Progress Note-Physician Normal F [facility] Comment on above: Result Comment: Elec tronically Signed By: New Johnson DO.br\Date and Time Signed: 11/29/22 10:54 EDT RAD - Preliminary Cat Scan R eporton 11-29-2022 RAD - Preliminary Cat Scan Report [id number]#1 .00CD:127 Normal [facility] Sed Rate Automatedon 023 Sed Rate Automated 17 mm/hr Normal 0-19 [facility] Comment on above: Performed By: #### 2 201312, 8624090, 8277591, 95503960, 15883605, 0192049, 67628186, 1946365, 28853959, 427255212, 0183263, 5311400 ####[facility] [address] [place] [address] TSH With T4fr Reflexon 11-29 TSH Qn 3.43 m[IU]/L Normal 0.34-5.60 [facility] Comment on above: Performed By: #### 2 573992, 9767619, 2621368, 01225268, 25658974, 5401169, 94368761, 1750967, 59988748, 209889725, 9462613, 9759446 ####[facility] [address] [place] [address] Troponin 6 Hr.on 11-29-2022 Troponin I.cardiac [Mass/Vol] 32.60 pg/mL Normal 15.90-38.40 [facility] Comment on above: Result Comment: The 95% CI (Confidence Interval) PPV (Positive Predictive Value) for myocardial infarction in females is 38 pg/mL, in males 51 pg/mL. The results should be used in conjunction with clinical conditions of myocardial infarction.(Access High Sensitivity Troponin I Instructions For Use, ReferralMD, December 2017) Performed By: #### 1 6471016 ####[facility] [address] [place] [address] Troponin 9 Hr.on 11-29-2022 Troponin I.cardiac [Mass/Vol] 37.00 pg/mL Normal 15.90-38.40 [facility] Comment on above: Result Comment: The 95% CI (Confidence Interval) PPV (Positive Predictive Value) for myocardial infarction in females is 38 pg/mL, in males 51 pg/mL. The results should be used in conjunction with clinical conditions of myocardial infarction.(Access High Sensitivity Troponin I Instructions For Use, ReferralMD, December 2017) Performed By: #### 1 0412644 ####[facility] [address] [place] [address] Vitamin D 25 Hydroxyon 11-29 25-hydroxyvitamin D3 [Mass/Vol] ng/mL Low 30.0-100.0 [facility] Comment on above: Result Comment: Vit palacios D deficiency has been defined as a level of serum 25-OH vitamin D less than 20 ng/mL (1,2) by the [place] [employer] and an Endocrine Society practice guideline. The Endocrine Society further defined vitamin D insufficiency as a level between 21 and 29 ng/mL (2). 1. IOM ([place] of Medicine). 2010. Dietary reference intakes for calcium and D. [place]: The National Academies Press. 2. Patricia MF, Parisa AGUIRRE, Reij PETERS, et al. Evaluation, treatment, and prevention of vitamin D deficiency: an Endocrine Society clinical practice guideline. JCEM. 2010; 96 (7):1911-30. Performed By: #### 2 241592, 2055806, 0534532, 08336823, 14956847, 3546587, 61058699, 1779097, 72125421, 581483534, 3653591, 2234304 ####[facility] [address] [place] [address] eGFRon 11-29-2022 GFR/1.73 sq M.predicted among non-blacks MDRD (S/P/Bld) [Vol rate/Area] 69 mL/min/1.73 m2 Normal >=59 [facility] Comment on above: Order Comment: Order added by Discern Expert. Result Comment: Repair Supervisor earnest kidney disease could be indicated at eGFR's of less than 60 mL/min/1.73m2. Kidney failure is indicated at less than 15 mL/min/1.73m2. Performed By: #### 2 280451, 5087045, 5384955, 97775565, 48949265, 4756677, 96716908, 7978061, 64189458, 440328964, 5757616, 0585306 ####[facility] [address] [place] [address] Auto Diffon 11-28-2022 Basophils/100 WBC (Bld) 0.7 % Normal 0.0-2.0 F [facility] Comment on above: Order Comment: Order Added by Discern Expert. Performed By: #### 1 7701728, 6243580, 9545187, 3988222, 32580222 ####[address] [place] [address] Basophils/Leukocytes Auto (Bld) [Pure # fraction] 0.0 E9/L Normal 0.0-0.2 [facility] Comment on above: Order Comment: Order Added by Discern Expert. Performed By: #### 1 8710855, 8745216, 9431776, 2578248, 83982200 ####[address] [place] [address] Eosinophils/100 WBC (Bld) 7.4 % Normal 0.0-8.0 [facility] Comment on above: Order Comment: Order Added by Bethany Expert. Performed By: #### 1 4244618, 8198257, 1641484, 4322166, 95015798 ####[address] [address] Eosinophils/Leukocytes Auto (Bld) [Pure # fraction] 0.5 E9/L Normal 0.0-0.5 [facility] Comment on above: Order Comment: Order Added by Bethany Expert. Performed By: #### 1 3145245, 0731452, 3700400, 2607381, 93944177 ####[address] [address] Lymphocytes/100 WBC (Bld) 9.3 % Low 14.0-50.0 [facility] Comment on above: Order Comment: Order Added by Bethany Expert. Performed By: #### 1 6384657, 7544080, 7451907, 7585766, 82372330 ####[address] [place] [address] Lymphocytes/Leukocytes Auto (Bld) [Pure # fraction] 0.7 E9/L Low 1.0-4.0 [facility] Comment on above: Order Comment: Order Added by Bethany Expert. Performed By: #### 1 5260192, 6231950, 8010171, 8332794, 13151959 ####[facility] [address] [place] [address] Monocytes/100 WBC (Bld) 6.6 % Normal 4.0-14.0 [facility] Comment on above: Order Comment: Order Added by Discern Expert. Performed By: #### 1 3618476, 8022616, 9249719, 0054684, 28951964 ####[facility] [address] [place] [address] Monocytes/Leukocytes Auto (Bld) [Pure # fraction] 0.5 E9/L Normal 0.2-1.0 [facility] Comment on above: Order Comment: Order Added by Discern Expert. Performed By: #### 1 2578151, 0956623, 5864651, 2554809, 35700003 ####[address] [place] [address] Neutrophils/100 WBC (Bld) 76.0 % High 36.0-75.0 [facility] Comment on above: Order Comment: Order Added by Bethany Expert. Performed By: #### 1 6677931, 3198859, 3708905, 2835659, 31229718 ####[address] [place] [address] Neutrophils/Leukocytes Auto (Bld) [Pure # fraction] 5.4 E9/L Normal 2.0-7.5 [facility] Comment on above: Order Comment: Order Added by Discern Expert. Performed By: #### 1 5030494, 8392407, 2336108, 5696865, 14060385 ####[facility] [address] [place] [address] BMPon 11-28-2022 Creatinine [Mass/Vol] 1.0 mg/dL Normal 0.5-1.3 [facility] Comment on above: Performed By: #### 1 9255650, 7296141, 2848771, 3038672, 54509253 ####[address] [place] [address] Urea nitrogen [Mass/Vol] 16 mg/dL Normal 5-21 [facility] Comment on above: Performed By: #### 1 9873558, 1389230, 7192869, 5094448, 51906739 ####[facility] [address] [place] [address] Urea nitrogen/Creatinine [Mass ratio] 16 No Units Normal 10-20 [facility] Comment on above: Performed By: #### 1 0323457, 0447803, 8211176, 3437147, 39153127 ####[facility] [address] [place] [address] Anion gap [Moles/Vol] 10 mmol/L Normal 6-16 [facility] Comment on above: Performed By: #### 1 2938436, 7844980, 4479261, 8861136, 25656117 ####[facility] [address] [place] [address] Calcium [Mass/Vol] 8.8 mg/dL Low 8.9-11.1 [facility] Comment on above: Performed By: #### 1 9763331, 0175580, 9347548, 8122111, 36995353 ####[facility] [address] [place] [address] Chloride [Moles/Vol] 105 mmol/L Normal 101-111 [facility] Comment on above: Performed By: #### 1 6485496, 2932236, 5892665, 8150928, 28015128 ####[facility] [address] [place] [address] CO2 [Moles/Vol] 28 mmol/L Normal 21-31 [facility] Comment on above: Performed By: #### 1 3111116, 4832722, 2474218, 4698815, 56929259 ####[facility] [address] [place] [address] Glucose [Mass/Vol] 114 mg/dL Normal 55-199 [facility] Comment on above: Result Comment: If t his glucose result represents a fasting glucose, interpretation should refer to the following reference range: 55-99 mg/dL Performed By: #### 1 5127991, 4218360, 6282619, [id number], [id number] ####[facility] [address] [place] [address] Potassium [Moles/Vol] 4.1 mmol/L Normal 3.5-5.3 [facility] Comment on above: Performed By: #### 1 7366610, 1775054, 3788905, 8380346, 02308545 ####[facility] [address] [place] [address] Sodium [Moles/Vol] 139 mmol/L Normal 135-145 [facility] Comment on above: Performed By: #### 1 4276661, 6976933, 2258280, 4671273, 22451180 ####[facility] [address] [place] [address] Blood Gas Art, with Lytes, G christal, [place] 11-28-2022 a/A Ratio Art 53.40 % Normal >=0.80 [facility] Comment on above: Performed By: #### 4 [id number] ####[facility] [address] [place] [address] AaDO2 Art 64.9 mmHg High 5.0-15.0 [facility] Comment on above: Performed By: #### 4 [id number] ####[facility] [address] [place] [address] Allens Test Positive Normal [facility] Comment on above: Performed By: #### 4 [id number] ####[facility] Xbmidbyjmb[address] [place] [address] Base Excess Arterial 2.9 mmol/L Normal >=2.8 [facility] Comment on above: Performed By: #### 4 [id number] ####[facility] [address] [place] [address] cCa2+ Art 4.88 mg/dL Normal 4.40-5.30 [facility] Comment on above: Performed By: #### 4 [id number] ####[facility] [address] [place] [address] cCl- Art 103.0 mmol/L Normal 101.0-111.0 [facility] Comment on above: Performed By: #### 4 [id number] ####[facility] [address] [place] [address] cGlu Art 98 mg/dL Normal 55-99 [facility] Comment on above: Performed By: #### 4 [id number] ####[address] [place] [address] cK+ Art 3.6 mmol/L Normal 3.5-5.3 [facility] Comment on above: Performed By: #### 4 [id number] ####[address] [address] cLac Art .6 mmol/L Normal .5-2.2 [facility] Comment on above: Performed By: #### 4 34020966 ####[address] [facility] [address] documentation billing clerk+ Art 139.0 mmol/L Normal 135.0-145.0 [facility] Comment on above: Performed By: #### 4 [id number] ####[address] [place] [address] Drawn by nmb Invalid Interpretation Code [facility] Comment on above: Performed By: #### 4 [id number] ####[address] [place] [address] FCOHb Art 1.5 % Normal 1.5-4.9 [facility] Comment on above: Result Comment: Refe rence rangeNonsmoker <1.5%Smoker <5.0%Heavy Smoker <9.0% Performed By: #### 4 [id number] ####[facility] [address] [place] [address] FIO2 BG 28 Invalid Interpretation Code [facility] Comment on above: Performed By: #### 4 [id number] ####[address] [address] Flow 2 Invalid Interpretation Code [facility] Comment on above: Performed By: #### 4 [id number] ####[address] [address] FMetHb Art 0.3 % Normal 0.0-1.9 [facility] Comment on above: Performed By: #### 4 70034352 ####[address] [address] FO2Hb Art 93.7 % Normal 93.0-100.0 [facility] Comment on above: Performed By: #### 4 [id number] ####[address] [address] HCO3 (Bld) [Moles/Vol] 26.9 mmol/L High 22.0-26.0 [facility] Comment on above: Performed By: #### 4 [id number] ####[address] [address] Hemoglobin (Bld) [Mass/Vol] 11.9 g/dL Low 12.0-17.0 [facility] Comment on above: Performed By: #### 4 [id number] ####[address] [address] Oxygen saturation in Blood 95.4 % Normal 95.0-100.0 [facility] Comment on above: Performed By: #### 4 24766151 ####[address] [address] P CO2 Arterial 47.6 mmHg High 35.0-45.0 [facility] Comment on above: Performed By: #### 4 [id number] ####[address] [address] P O2 Arterial 74.3 mmHg Low 80.0-100.0 [facility] Comment on above: Performed By: #### 4 59374406 ####[address] [address] pH Arterial 7.387 Normal 7.350-7.450 [facility] Comment on above: Performed By: #### 4 78474595 ####[facility] [address] [place] [id number] Sample Site R Radial Normal [facility] Comment on above: Performed By: #### 4 [id number] ####[facility] [address] [place], [place] [address] Sample Type Arterial Draw Normal [facility] Comment on above: Performed By: #### 4 [id number] ####[facility] [address] [place] [address] CBC w/ Auto Diffon 3 Erythrocyte distribution width (RBC) [Ratio] 14.8 % High 10.9-14.2 [facility] Comment on above: Performed By: #### 1 4068297, 3725948, 6353741, 4358307, 28122767 ####[facility] [address] [place] [address] Hematocrit (Bld) [Volume fraction] 37.3 % Low 37.7-49.0 [facility] Comment on above: Performed By: #### 1 0916824, 7668729, 9764163, 4838103, 89084417 ####[address] [place] [address] Hemoglobin (Bld) [Mass/Vol] 12.3 g/dL Low 13.5-17.5 [facility] Comment on above: Performed By: #### 1 0062150, 8940346, 1183886, 5313945, 24201169 ####[facility] [address] [place] [address] MCH (RBC) [Entitic mass] 28.3 pg Normal 27.0-34.0 [facility] Comment on above: Performed By: #### 1 0258704, 2548776, 7161230, 2932714, 92322627 ####[facility] [address] [place] [address] MCHC (RBC) [Mass/Vol] 33.0 g/dL Normal 31.4-36.0 [facility] Comment on above: Performed By: #### 1 6514257, 0556758, 1771356, 5559093, 46782589 ####[facility] [address] [place] [address] MCV (RBC) [Entitic vol] 85.9 fL Normal 80.0-100.0 [facility] Comment on above: Performed By: #### 1 6804017, 1246409, 8856031, 0588776, 81090524 ####[address] [place] [address] Platelet mean volume (Bld) [Entitic vol] 10.4 fL Normal 6.4-10.8 [facility] Comment on above: Performed By: #### 1 0223975, 3156397, 6514811, 5084230, 51698105 ####[place] [address] Platelets (Bld) [#/Vol] 189.0 E9/L Normal 150.0-500.0 [facility] Comment on above: Performed By: #### 1 7276952, 4747985, 9873768, 4040060, 12868588 ####[place] [address] RBC (Bld) [#/Vol] 4.3 E12/L Normal 4.3-5.9 [facility] Comment on above: Performed By: #### 1 1699040, 2485728, 5068761, 0356415, 18638665 ####[address] [place] [address] WBC corrected for nucl RBC Auto (Bld) [#/Vol] 7.1 E9/L Normal 4.0-11.0 [facility] Comment on above: Performed By: #### 1 6209045, 2742638, 5997513, 0931846, 33157200 ####[place] [address] CHEMISTRYOrdered By: SYSTEM SYSTEM on 11-28-2022 Troponin I.cardiac [Mass/Vol] 32.60 pg/mL Normal 15.90 - 38.40 pg/mL FT Remisol Troponin I.cardiac [Mass/Vol] 26.90 pg/mL Normal 15.90 - 38.40 pg/mL FT Remisol Consent for Treatmenton Consent for Treatment [id number] [id number] 0CD:127 Normal [facility] ED Note-Physicianon 11-29-19 ED Note-Physician Normal [facility] Comment on above: Result Comment: Elec [...] - 2.2 mmol/L FT Resp Auto SS documentation billing clerk+ Art 139.0 mmol/L Normal 135.0 - 145.0 mmol/L FT Resp Auto SS Drawn by nmb Invalid Interpretation Code FT Resp Auto SS FCOHb Art 1.5 % Normal 1.5 - 4.9 % FT Resp Auto SS FIO2 BG 28 Invalid Interpretation Code FT Resp Auto SS Flow 2 Invalid Interpretation Code FT Resp Auto SS FMetHb Art 0.3 % Normal 0.0 - 1.9 % [facility] Resp Auto SS FO2Hb Art 93.7 % Normal 93.0 - 100.0 % [facility] Resp Auto SS HCO3 (Bld) [Moles/Vol] 26.9 mmol/L High 22.0 - 26.0 mmol/L [facility] Resp Auto SS Hemoglobin (Bld) [Mass/Vol] 11.9 g/dL Low 12.0 - 17.0 gm/dL [facility] Resp Auto SS P CO2 Arterial 47.6 mm[Hg] High 35.0 - 45.0 mmHg FT Resp Auto SS P O2 Arterial 74.3 mm[Hg] Low 80.0 - 100.0 mmHg [facility] Resp Auto SS pH Arterial 7.387 Normal 7.350 - 7.450 [facility] Resp Auto SS Sample Site R Radial (11/28/22 6:55 PM) Normal [facility] Resp Auto SS Sample Type Arterial Draw (11/28/22 6:55 PM) Normal [facility] Resp Auto SS HEMATOLOGYOrdered By: SYSTEM SYSTEM on 11-28-2022 Basophils/100 WBC (Bld) 0.7 % Normal 0.0 - 2.0 % [facility] HemeAutoSS Basophils/Leukocytes Auto (Bld) [Pure # fraction] [...] [facility] HemeAutoSS Pre-Arrival Noteon Pre-Arrival Note Normal [facility] Troponin 0 Hr.on 11-28-2022 Troponin I.cardiac [Mass/Vol] 21.80 pg/mL Normal 15.90-38.40 [facility] Comment on above: Result Comment: The 95% CI (Confidence Interval) PPV (Positive Predictive Value) for myocardial infarction in females is 38 pg/mL, in males 51 pg/mL. The results should be used in conjunction with clinical conditions of myocardial infarction.(Access High Sensitivity Troponin I Instructions For Use, Claudia [place], December 2017) Performed By: #### 1 [id number], 2095332, 7798186, 7557370, 97755795 ####[facility] [address] [place] [address] Troponin 3 Hr.on 11-28-2022 Troponin I.cardiac [Mass/Vol] 26.90 pg/mL Normal 15.90-38.40 [facility] Comment on above: Result Comment: The 95% CI (Confidence Interval) PPV (Positive Predictive Value) for myocardial infarction in females is 38 pg/mL, in males 51 pg/mL. The results should be used in conjunction with clinical conditions of myocardial infarction.(Access High Sensitivity Troponin I Instructions For Use, Claudia [place], December 2017) Performed By: #### 1 [id number] ####[facility] [address] [place] [address] UA With Cult Reflexon 2022 Crystals LM Ql (Urine sed) Present Normal [facility] Comment on above: Performed By: #### 1 1211007 ####[place] [address] Epithelial cells.squamous LM.HPF (Urine sed) [#/Area] 0-2 Normal 0-2 [facility] Comment on above: Performed By: #### 1 0959177 ####[facility] [address] [place], [place] [address] [place].plasma/[place].R BC (Bld) [Mass ratio] 0-3 Normal 0-3 [facility] Comment on above: Performed By: #### 1 4580833 ####[facility] [address] [place], [place] [address] Mucus Ql (Urine sed) TRACE Normal [facility] Comment on above: Performed By: #### 1 1390565 ####[facility] [address] [place] [address] WBC LM.HPF (Urine sed) [#/Area] 0-5 Normal 0-5 [facility] Comment on above: Performed By: #### 1 8626692 ####[address] [address] Bilirubin Ql (U) Negative Normal Negative [facility] Comment on above: Performed By: #### 1 7900460 ####[facility] [address] [place] [address] Clarity (U) CLEAR Normal Clear [facility] Comment on above: Performed By: #### 1 0999213 ####[facility] [address] [place] [address] Color (U) YELLOW Normal Yellow [facility] Comment on above: Performed By: #### 1 7021388 ####[facility] [address] [place] [address] Glucose Test strip (U) [Mass/Vol] Negative Normal Negative [facility] Comment on above: Performed By: #### 1 2851310 ####[address] [place] [address] Hemoglobin Ql (U) Negative Normal Negative [facility] Comment on above: Performed By: #### 1 8486446 ####[facility] [address] [place] [address] Ketones (U) [Mass/Vol] Negative Normal Negative [facility] Comment on above: Performed By: #### 1 6190328 ####[facility] [address] [place] [address] Nitrite Ql (U) Negative Normal Negative [facility] Comment on above: Performed By: #### 1 7082154 ####[facility] [address] [place] [address] pH (U) 6.0 [pH] Invalid Interpretation Code 5.0-9.0 [facility] Comment on above: Performed By: #### 1 5625499 ####[facility] [address] [place] [address] Protein (U) [Mass/Vol] 2+ Abnormal Negative [facility] Comment on above: Performed By: #### 1 1192919 ####[address] [place] [address] Specific gravity (U) [Rel density] 1.025 Invalid Interpretation Code 1.005-1.030 [facility] Comment on above: Performed By: #### 1 8230226 ####[facility] [address] [place] [address] Type of Urine collection method Clean Catch Normal [facility] Comment on above: Performed By: #### 1 8016837 ####[facility] [address] [place] [address] Urobilinogen Qn (U) 0.2 {Lei'U}/dL Normal 0.0-1.0 [facility] Comment on above: Performed By: #### 1 0183123 ####[facility] [address] [place] [address] WBC Auto Ql (U) Negative Normal Negative [facility] Comment on above: Performed By: #### 1 3855990 ####[facility] [address] [place] [address] URINALYSISOrdered By: Emily Suero on 11-28-2022 Bilirubin [...] PM) Normal Negative [facility] UA Auto SS [place].plasma/[place].R BC (Bld) [Mass ratio] 0-3 /HPF Normal [...] FT UA Auto SS Urobilinogen Qn (U) 0.7950142 {Lei'U}/dL Normal 0.0 - 1.0 EU/dL FT [...] 77 mL/min/1.73 m2 Normal >=59 [facility] Comment on above: Order Comment: Order added by Discern Expert. Result Comment: Repair Supervisor earnest kidney disease could be indicated at eGFR's of less than 60 mL/min/1.73m2. Kidney failure is indicated at less than 15 mL/min/1.73m2. Performed By: #### 1 8445952, 3708001, 9936322, 4633000, 19866268 ####[facility] [address] [place] [address] CHEMISTRYOrdered By: SYSTEM SYSTEM on 11-26-2022 Albumin [...] Triglyceride [Mass/Vol] 69 mg/dL Normal <=149mg/dL F [facility] Remisol TSH Qn 2.07 m[IU]/L Normal 0.34 - 5.60 mcIU/mL FT Remisol Urea nitrogen [Mass/Vol] 18 mg/dL Normal 5 - 21 mg/dL FT Remisol Urea nitrogen/Creatinine [Mass ratio] 20 mg/mg Normal 10 - 20 FT Remisol CMPon 11-26-2022 Albumin [Mass/Vol] 3.7 g/dL Normal 3.3-5.0 [facility] Comment on above: Performed By: #### 2 455189, 3619669, 96423405, 0433098 ####[facility] [address] [place] [address] Albumin/Globulin (S) [Mass conc ratio] 1.2 Normal 1.1-2.2 [facility] Comment on above: Performed By: #### 2 667139, 2820187, 88385639, 9228201 ####[facility] [address] [place] [address] ALP [Catalytic activity/Vol] 38 Int._Unit/L Normal 21-98 [facility] Comment on above: Performed By: #### 2 062323, 3919951, 43726152, 7441668 ####[facility] [address] [place] [address] ALT No additional P-5'-P [Catalytic activity/Vol] 11 Int._Unit/L Normal 6-46 [facility] Comment on above: Performed By: #### 2 592715, 8238427, 53886248, 8574897 ####[facility] [address] [place] [address] Anion gap [Moles/Vol] 14 mmol/L Normal 6-16 [facility] Comment on above: Performed By: #### 2 543414, 1931990, 20756901, 6597702 ####[facility] [address] [place] [address] AST [Catalytic activity/Vol] 15 Int._Unit/L Normal 5-43 [facility] Comment on above: Performed By: #### 2 797121, 8300891, 85350348, 7980532 ####[facility] [address] [facility] [place] [address] Bilirubin [Mass/Vol] 1.0 mg/dL Normal 0.0-1.1 [facility] Comment on above: Performed By: #### 2 910556, 8868906, 59157033, 6959896 ####[facility] [address] [place] [address] Calcium [Mass/Vol] 9.2 mg/dL Normal 8.9-11.1 [facility] Comment on above: Performed By: #### 2 873675, 3788062, 67901185, 9896635 ####[facility] [address] [place] [address] Chloride [Moles/Vol] 107 mmol/L Normal 101-111 [facility] Comment on above: Performed By: #### 2 053294, 9305526, 66113316, 3584711 ####[facility] [address] [facility] [place] [address] CO2 [Moles/Vol] 28 mmol/L Normal 21-31 [facility] Comment on above: Performed By: #### 2 283441, 7946677, 75015874, 7406802 ####[facility] [address] [place] [address] Creatinine [Mass/Vol] 0.9 mg/dL Normal 0.5-1.3 [facility] Comment on above: Performed By: #### 2 526742, 7294752, 04326328, 2827235 ####[facility] [address] [place] [address] Globulin (S) [Mass/Vol] 3.2 g/dL Normal 1.4-4.0 F [facility] Comment on above: Performed By: #### 2 732276, 4413105, 52035338, 8693454 ####[facility] [address] [place] [address] Glucose [Mass/Vol] 95 mg/dL Normal 55-199 [facility] Comment on above: Result Comment: If t his glucose result represents a fasting glucose, interpretation should refer to the following reference range: 55-99 mg/dL Performed By: #### 2 195721, 8471961, 03304718, 7638101 ####[facility] [address] [place] [address] Potassium [Moles/Vol] 4.2 mmol/L Normal 3.5-5.3 [facility] Comment on above: Performed By: #### 2 959131, 7757365, 00625064, 2030962 ####[facility] [address] [place] [address] Protein [Mass/Vol] 6.9 g/dL Normal 6.0-7.8 [facility] Comment on above: Performed By: #### 2 111562, 5163937, 61660881, 0913063 ####[facility] [address] [place] [address] Sodium [Moles/Vol] 145 mmol/L Normal 135-145 [facility] Comment on above: Performed By: #### 2 905343, 2944580, 38104258, 3408755 ####[facility] [address] [place] [address] Urea nitrogen [Mass/Vol] 18 mg/dL Normal 5-21 [facility] Comment on above: Performed By: #### 2 276214, 9412751, 23282381, 1915193 ####[facility] [address] [place] [address] Urea nitrogen/Creatinine [Mass ratio] 20 No Units Normal 10-20 [facility] Comment on above: Performed By: #### 2 460508, 8350436, 32550602, 4731801 ####[facility] [address] [place] [address] Consent for Treatmenton 07- Consent for Treatment [id number] 3070 [id number] 0CD:127 Normal [facility] Lipid Panelon 11-26-2022 Cholesterol [Mass/Vol] 112 mg/dL Low 120-200 Fi [facility] Comment on above: Performed By: #### 2 589949, 7308488, 64994904, 2970535 ####[facility] [address] [place] [address] Cholesterol in HDL [Mass/Vol] 49 mg/dL Invalid Interpretation Code [facility] Comment on above: Result Comment: HDL > or equal to 60 mg/dL: Low cardiovascular riskHDL < 40 mg/dL : High cardiovascular risk Performed By: #### 2 692522, 8019738, 57532268, 4942611 ####[facility] [address] [place] [address] Cholesterol in LDL [Mass/Vol] 42 mg/dL Normal <=129 [facility] Comment on above: Performed By: #### 2 977799, 4225956, 73741979, 4972043 ####[facility] [address] [place] [address] Cholesterol in VLDL [Mass/Vol] 14 mg/dL Normal 7-40 [facility] Comment on above: Performed By: #### 2 819775, 1147403, 49005118, 9164854 ####[facility] [address] [place] [address] Triglyceride [Mass/Vol] 69 mg/dL Normal <=149 F [facility] Comment on above: Performed By: #### 2 783063, 6886580, 50777132, 0224679 ####[facility] [address] [place] [address] Physician Orderon 11-26-2022 Physician Order [id number]. 00CD:127 Normal [facility] TSHon 11-26-2022 TSH Qn 2.07 m[IU]/L Normal 0.34-5.60 [facility] Comment on above: Performed By: #### 2 697927, 8511056, 12545720, 7634441 ####[facility] [address] [place] [address] eGFRon 11-26-2022 GFR/1.73 sq M.predicted among non-blacks MDRD (S/P/Bld) [Vol rate/Area] 87 mL/min/1.73 m2 Normal >=59 [facility] Comment on above: Order Comment: Order added by Discern Expert. Result Comment: Repair Supervisor earnest kidney disease could be indicated at eGFR's of less than 60 mL/min/1.73m2. Kidney failure is indicated at less than 15 mL/min/1.73m2. Performed By: #### 2 326747, 2359721, 19645128, 4774499 ####[facility] [address] [place] [address] Discharge Instructionson Discharge Instructions [id number] 0CD:127 Normal [facility] [facility] Transfer Documentson 023 Transfer Documents [id number] 0CD:127 Normal [facility] Capillary Glucose POCon Glucose [Mass/Vol] 166 mg/dL High 55-99 [facility] Comment on above: Result Comment: Gareth guerrero RN/ Performed By: #### 2 [id number] ####[facility] [address] [place] [address] Glucose [Mass/Vol] 119 mg/dL High 55-99 [facility] Comment on above: Result Comment: Repe at Test Performed By: #### 2 [id number] ####[facility] [address] [place] [address] Discharge Note-Nursingon Discharge Note-Nursing Normal Fi [facility] GmfR4tmm 09-28-2022 HbA1c (Bld) [Mass fraction] 6.4 % High <=5.9 [facility] Comment on above: Order Comment: IF UN ABLE TO ADD TO ED LABS Performed By: #### 2 [id number], [id number] ####[facility] [address] [place] [address] Inpatient Clinical Summaryon 09-28-2022 Inpatient Clinical Summary Normal [facility] Inpatient Patient Summaryon 09-28-2022 Inpatient Patient Summary Normal [facility] Inpatient Patient Summary Normal [facility] Interdisciplinary Note - Santosh e Manageron 09-28-2022 Interdisciplinary Note - Grain Spouter Normal [facility] Comment on above: Result Comment: Elec tronically Signed By: Jose HAYDEN, Norma\.br\Date and Time Signed: 09/28/22 15:54 EDT Monitor Recordon 09-28-2022 Monitor Record [id number]. [id number]:127 Normal [facility] Capillary Glucose POCon Glucose [Mass/Vol] 192 mg/dL High 55-99 [facility] Comment on above: Result Comment: Gareth GARDINER Performed By: #### 2 [id number] ####[facility] [address] [place] [address] Glucose [Mass/Vol] 130 mg/dL High 55-99 [facility] Comment on above: Result Comment: No C overage Given Performed By: #### 2 [id number] ####[facility] [address] [place] [address] Glucose [Mass/Vol] 202 mg/dL High 55-99 [facility] Comment on above: Result Comment: Gareth GARDINER Performed By: #### 2 [id number] ####[facility] [address] [place] [address] Glucose [Mass/Vol] 89 mg/dL Normal 55-99 [facility] Comment on above: Result Comment: Gareth GARDINER Performed By: #### 2 [id number] ####[facility] [address] [place] [address] Insurance Correspondence Off iceon 09-27-2022 Insurance Correspondence Office [id number]. [id number]:127 Normal [facility] Interdisciplinary Note - Santosh e Manageron 09-27-2022 Interdisciplinary Note - Grain Spouter Normal [facility] Comment on above: Result Comment: Elec tronically Signed By: Natalie Grant\Date and Time Signed: 09/27/22 14:56 EDT Interdisciplinary Note - PTo n 09-27-2022 Interdisciplinary Note - PT Pt is safe and indep w/bed mobility, transfers and gait w/FWW. Pt uses FWW at home; he is at his baseline. NO PT needs at this time. No needs anticipated upon d/c home. AM-PAC Normal [facility] Lyteson 09-27-2022 Anion gap [Moles/Vol] 9 mmol/L Normal 6-16 [facility] Comment on above: Performed By: #### 2 777082, [id number] ####[facility] [address] [place] [address] Chloride [Moles/Vol] 105 mmol/L Normal 101-111 [facility] Comment on above: Performed By: #### 2 [id number], [id number] ####[facility] [address] [place] [address] CO2 [Moles/Vol] 26 mmol/L Normal 21-31 [facility] Comment on above: Performed By: #### 2 154775, [id number] ####[facility] [address] [place] [address] Potassium [Moles/Vol] 4.2 mmol/L Normal 3.5-5.3 [facility] Comment on above: Performed By: #### 2 626497, [id number] ####[facility] [address] [place] [address] Sodium [Moles/Vol] 136 mmol/L Normal 135-145 [facility] Comment on above: Performed By: #### 2 063713, [id number] ####[facility] [address] [place] [address] Monitor Recordon 09-27-2022 Monitor Record [id number]#1. 00CD:127 Normal [facility] Monitor Record [id number]. 00CD:127 Normal [facility] Progress Note-Nurseon 2022 Progress Note-Nurse Normal Fishe r [facility] Progress Note-Physicianon Progress Note-Physician Normal F [facility] Comment on above: Result Comment: Elec tronically Signed By: Adeline COLEMAN\.br\Date and Time Signed: 09/27/22 15:34 EDT\.br\Electronically Co-Signed By: Adeline COLEMAN\.br\Date and Time Co-Signed: 09/27/22 15:37 EDT\.br\Electronically Co-Signed By: Rei POTTS, Ganesh Pressley\.br\Date and Time Co-Signed: 09/27/22 18:58 EDT Auto Diffon 09-26-2022 Basophils/100 WBC (Bld) 0.5 % Normal 0.0-2.0 [facility] Comment on above: Order Comment: Order Added by Discern Expert. Performed By: #### 1 [id number], 5161383, 0121825, 8231455 ####[facility] [address] [place] [address] Basophils/Leukocytes Auto (Bld) [Pure # fraction] 0.0 E9/L Normal 0.0-0.2 [facility] Comment on above: Order Comment: Order Added by Discern Expert. Performed By: #### 1 1193294, 3922557, 6337729, 0890722 ####[facility] [address] [place] [address] Eosinophils/100 WBC (Bld) 3.3 % Normal 0.0-8.0 [facility] Comment on above: Order Comment: Order Added by Discern Expert. Performed By: #### 1 0262404, 0890220, 4367061, 8913058 ####[address] [place] [address] Eosinophils/Leukocytes Auto (Bld) [Pure # fraction] 0.3 E9/L Normal 0.0-0.5 [facility] Comment on above: Order Comment: Order Added by Bethany Expert. Performed By: #### 1 6985124, 5112670, 5154132, 6281424 ####[address] [place] [address] Lymphocytes/100 WBC (Bld) 9.5 % Low 14.0-50.0 [facility] Comment on above: Order Comment: Order Added by Bethany Expert. Performed By: #### 1 5271811, 3090348, 2451549, 2527897 ####[address] [address] Lymphocytes/Leukocytes Auto (Bld) [Pure # fraction] 0.8 E9/L Low 1.0-4.0 [facility] Comment on above: Order Comment: Order Added by Bethany Expert. Performed By: #### 1 6228789, 4993251, 4201588, 5067730 ####[address] [address] Monocytes/100 WBC (Bld) 7.2 % Normal 4.0-14.0 [facility] Comment on above: Order Comment: Order Added by Bethany Expert. Performed By: #### 1 3551887, 6736659, 4305712, 1257325 ####[address] [place] [address] Monocytes/Leukocytes Auto (Bld) [Pure # fraction] 0.6 E9/L Normal 0.2-1.0 [facility] Comment on above: Order Comment: Order Added by Bethany Expert. Performed By: #### 1 4292049, 7159334, 5912046, 1532145 ####[address] [address] Neutrophils/100 WBC (Bld) 79.5 % High 36.0-75.0 [facility] Comment on above: Order Comment: Order Added by Discern Expert. Performed By: #### 1 4677348, 4100277, 3009444, 3971780 ####[facility] [address] [place] [address] Neutrophils/Leukocytes Auto (Bld) [Pure # fraction] 6.7 E9/L Normal 2.0-7.5 [facility] Comment on above: Order Comment: Order Added by Discern Expert. Performed By: #### 1 2845876, 3931559, 0658662, 2863237 ####[facility] [address] [place] [address] BMPon 09-26-2022 Creatinine [Mass/Vol] 1.0 mg/dL Normal 0.5-1.3 [facility] Comment on above: Performed By: #### 1 6937601, 5831415, 2546760, 3542047 ####[facility] [address] [place] [address] Urea nitrogen [Mass/Vol] 25 mg/dL High 5-21 [facility] Comment on above: Performed By: #### 1 1173092, 0071169, 7564653, 3528432 ####[facility] [address] [place] [address] Urea nitrogen/Creatinine [Mass ratio] 25 No Units High 10-20 [facility] Comment on above: Performed By: #### 1 6506739, 2863214, 3594927, 3393038 ####[facility] [address] [place] [address] Anion gap [Moles/Vol] 10 mmol/L Normal 6-16 [facility] Comment on above: Performed By: #### 1 1571091, 3148561, 8707260, 6771809 ####[facility] [address] [place] [address] Calcium [Mass/Vol] 8.9 mg/dL Normal 8.9-11.1 [facility] Comment on above: Performed By: #### 1 3254810, 3744399, 6785934, 2531439 ####[facility] [address] [place] [address] Chloride [Moles/Vol] 101 mmol/L Normal 101-111 [facility] Comment on above: Performed By: #### 1 0002200, 4725868, 4770451, 4293327 ####[facility] [address] [place] [address] CO2 [Moles/Vol] 26 mmol/L Normal 21-31 [facility] Comment on above: Performed By: #### 1 6678089, 8147936, 6304405, 3119167 ####[facility] [address] [place] [address] Glucose [Mass/Vol] 112 mg/dL Normal 55-199 [facility] Comment on above: Result Comment: If t his glucose result represents a fasting glucose, interpretation should refer to the following reference range: 55-99 mg/dL Performed By: #### 1 3477888, 0819671, 6552440, 6755742 ####[facility] [address] [place] [address] Potassium [Moles/Vol] 4.1 mmol/L Normal 3.5-5.3 [facility] Comment on above: Performed By: #### 1 7291146, 8858654, 2614776, 4220414 ####[facility] [address] [place] [address] Sodium [Moles/Vol] 133 mmol/L Low 135-145 [facility] Comment on above: Performed By: #### 1 0393354, 2480317, 0780410, 3068799 ####[facility] [address] [place] [address] CBC w/ Auto Diffon 3 Erythrocyte distribution width (RBC) [Ratio] 14.6 % High 10.9-14.2 [facility] Comment on above: Performed By: #### 1 6567603, 3203577, 6431946, 5924422 ####[facility] [address] [place] [address] Hematocrit (Bld) [Volume fraction] 37.6 % Low 37.7-49.0 [facility] Comment on above: Performed By: #### 1 1345654, 1656076, 0858079, 4640832 ####[address] [address] Hemoglobin (Bld) [Mass/Vol] 12.5 g/dL Low 13.5-17.5 [facility] Comment on above: Performed By: #### 1 7340183, 4832731, 9329631, 3838104 ####[address] MCH (RBC) [Entitic mass] 28.5 pg Normal 27.0-34.0 [facility] Comment on above: Performed By: #### 1 8071194, 9136804, 5041939, 7164367 ####[place] [address] MCHC (RBC) [Mass/Vol] 33.2 g/dL Normal 31.4-36.0 [facility] Comment on above: Performed By: #### 1 6380033, 9832215, 2521312, 0708042 ####[address] [address] MCV (RBC) [Entitic vol] 85.8 fL Normal 80.0-100.0 F [facility] Comment on above: Performed By: #### 1 1737492, 3902126, 4558396, 2706524 ####[address] [address] Platelet mean volume (Bld) [Entitic vol] 10.3 fL Normal 6.4-10.8 [facility] Comment on above: Performed By: #### 1 4167960, 0413436, 5092645, 3514163 ####[address] [address] Platelets (Bld) [#/Vol] 164.0 E9/L Normal 150.0-500.0 [facility] Comment on above: Performed By: #### 1 6530705, 3112817, 9762654, 0212111 ####[facility] [address] [place] [address] RBC (Bld) [#/Vol] 4.4 E12/L Normal 4.3-5.9 [facility] Comment on above: Performed By: #### 1 7864371, 4948062, 2732375, 3654256 ####[facility] [address] [place] [address] WBC corrected for nucl RBC Auto (Bld) [#/Vol] 8.4 E9/L Normal 4.0-11.0 [facility] Comment on above: Performed By: #### 1 8638834, 9498567, 8787208, 3617897 ####[facility] [address] [place] [address] Capillary Glucose POCon Glucose [Mass/Vol] 161 mg/dL High 55-99 [facility] Comment on above: Result Comment: Gareth guerrero RN/ Performed By: #### 2 [id number] ####[facility] [address] [place] [address] Consent for Treatmenton Consent for Treatment [id number] 0CD:127 Normal [facility] ED Clinical Summaryon 2022 ED Clinical Summary Normal [facility] ED Note-Physicianon 09-27-19 ED Note-Physician Normal [facility] Comment on above: Result Comment: Elec tronically Signed By: Shane Pan DO\.br\Date and Time Signed: 09/26/22 16:06 EDT ED Patient Education Noteon 09-26-2022 ED Patient Education Note Normal [facility] ED Patient Summaryon 023 ED Patient Summary Normal [facility] EMS Documentationon 09-27-19 EMS Documentation Normal [facility] EMS Documentation Normal [facility] Pre-Arrival Noteon 3 Pre-Arrival Note Normal [facility] UA With Cult Reflexon 2022 Bilirubin Ql (U) Negative Normal Negative [facility] Comment on above: Order Comment: can s traight cath if needed. Performed By: #### 1 0548186 ####[facility] [address] [place] [address] Clarity (U) CLEAR Normal Clear [facility] Comment on above: Order Comment: can s traight cath if needed. Performed By: #### 1 8740639 ####[facility] [address] [place] [address] Color (U) YELLOW Normal Yellow [facility] Comment on above: Order Comment: can s traight cath if needed. Performed By: #### 1 0832676 ####[facility] [address] [place] [address] Epithelial cells.squamous LM.HPF (Urine sed) [#/Area] 0-2 Normal 0-2 [facility] Comment on above: Order Comment: can s traight cath if needed. Performed By: #### 1 4806320 ####[facility] [address] [place] [address] Glucose Test strip (U) [Mass/Vol] Negative Normal Negative [facility] Comment on above: Order Comment: can s traight cath if needed. Performed By: #### 1 8116636 ####[facility] [address] [place] [address] Hemoglobin Ql (U) Negative Normal Negative [facility] Comment on above: Order Comment: can s traight cath if needed. Performed By: #### 1 9612884 ####[facility] [address] [place] [address] Ketones (U) [Mass/Vol] Negative Normal Negative [facility] Comment on above: Order Comment: can s traight cath if needed. Performed By: #### 1 5236424 ####[facility] [address] [place] [address] [place].plasma/[place].R BC (Bld) [Mass ratio] 0-3 Normal 0-3 [facility] Comment on above: Order Comment: can s traight cath if needed. Performed By: #### 1 9230980 ####[facility] [address] [place] [address] Nitrite Ql (U) Negative Normal Negative [facility] Comment on above: Order Comment: can s traight cath if needed. Performed By: #### 1 6836885 ####[address] [address] pH (U) 5.5 [pH] Invalid Interpretation Code 5.0-9.0 [facility] Comment on above: Order Comment: can s traight cath if needed. Performed By: #### 1 3955196 ####[address] [address] Protein (U) [Mass/Vol] Negative Normal Negative [facility] Comment on above: Order Comment: can s traight cath if needed. Performed By: #### 1 7315330 ####[address] [address] Specific gravity (U) [Rel density] 1.025 Invalid Interpretation Code 1.005-1.030 [facility] Comment on above: Order Comment: can s traight cath if needed. Performed By: #### 1 9425712 ####[address] [address] Type of Urine collection method Clean Catch Normal [facility] Comment on above: Order Comment: can s traight cath if needed. Performed By: #### 1 7884491 ####[facility] [address] [place] [address] Urobilinogen Qn (U) 1.0 {Lei'U}/dL Normal 0.0-1.0 [facility] Comment on above: Order Comment: can s traight cath if needed. Performed By: #### 1 7088833 ####[address] [place] [address] WBC Auto Ql (U) Negative Normal Negative [facility] Comment on above: Order Comment: can s traight cath if needed. Performed By: #### 1 6325300 ####[facility] [address] [place] [address] WBC LM.HPF (Urine sed) [#/Area] 0-5 Normal 0-5 [facility] Comment on above: Order Comment: can s traight cath if needed. Performed By: #### 1 6246831 ####[facility] [address] [place] [address] XR Chest Single Viewon 09-26 XR Chest Single View Normal [facility] eGFRon 09-26-2022 GFR/1.73 sq M.predicted among non-blacks MDRD (S/P/Bld) [Vol rate/Area] 77 mL/min/1.73 m2 Normal >=59 [facility] Comment on above: Order Comment: Order added by Discern Expert. Result Comment: Repair Supervisor earnest kidney disease could be indicated at eGFR's of less than 60 mL/min/1.73m2. Kidney failure is indicated at less than 15 mL/min/1.73m2. Performed By: #### 1 3947875, 2181228, 0090656, 1443101 ####[facility] [address] [place] [address] Q - CULTURE,URINE,ROUTINEon 06-23-2021 CULTURE, URINE, ROUTINE SEE NOTE Normal N orthern [place] Meter Record Clerk Comment on above: Order Comment: [facility] performed at: QPT, [facility], [address] [place] [address], [address] [place] [address], [id number], Master Tax Advisor: Archie Sinha MD [facility] Collection Date/Time: [facility] Results Received Date/Time: [facility] Reported Date/Time: Result Comment: CULT URE, URINE, ROUTINE Micro Number: [id number] Test Status: Final Specimen Source: Urine Specimen Quality: Adequate Result: Mixed genital alvin isolated. These superficial bacteria are not indicative of a urinary tract infection. No further organism identification is warranted on this specimen. If clinically indicated, recollect clean-catch, mid-stream urine and transfer immediately to Urine Culture Transport Tube. Performed By: #### 6 304R #### [facility] Default [address] [place] [address] Q - CULTURE,URINE,ROUTINEon 05-05-2021 CULTURE, URINE, ROUTINE SEE NOTE Normal N orthern [place] M[employer] Record Clerk Comment on above: Order Comment: [facility] performed at: QPT, [facility], [address] [facility], [address] [place] [address], [phone], Master Tax Advisor: Archie Sinha MD [facility] Collection Date/Time: [id number] [facility] Results Received Date/Time: [id number] [facility] Reported Date/Time: [id number] Result Comment: CULT URE, URINE, ROUTINE Micro Number: [id number] Test Status: Final Specimen Source: Urine Specimen Quality: Adequate Result: Growth of mixed alvin was isolated, suggesting probable contamination. No further testing will be performed. If clinically indicated, recollection using a method to minimize contamination, with prompt transfer to Urine Culture Transport Tube, is recommended. Performed By: #### 6 304R #### [facility] [address] [place] [address] Vital Signs Date Time Vital Sign Value Performing Clinician Facility 01-24-2023 10:00-0400 Hourly Rounding Mbanefo OJUKWU [facility] 01-24-2023 10:00-0400 Promise to Return Mbanefo OJUKWU [facility] 01-24-2023 09:00-0400 Hourly Rounding Mbanefo OJUKWU [facility] 01-24-2023 09:00-0400 Promise to Return Mbanefo OJUKWU [facility] 01-24-2023 08:29-0400 Diastolic blood pressure 73 mm[Hg] Mbanefo OJUKWU [facility] 01-24-2023 08:29-0400 Systolic blood pressure 157 mm[Hg] Mbanefo OJUKWU [facility] 01-24-2023 08:27-0400 Blood Pressure Location Mbanefo OJUKWU [facility] 01-24-2023 08:27-0400 Body temperature 97.7 [degF] Mbanefo OJUKWU [facility] 01-24-2023 08:27-0400 Diastolic blood pressure 73 mm[Hg] Mbanefo OJUKWU [facility] 01-24-2023 08:27-0400 Heart rate 82 /min Mbanefo OJUKWU [facility] 01-24-2023 08:27-0400 Respiratory rate 16 /min Mbanefo OJUKWU [facility] 01-24-2023 08:27-0400 Systolic blood pressure 157 mm[Hg] Mbanefo OJUKWU [facility] 01-24-2023 08:00-0400 Hourly Rounding Mbanefo OJUKWU [facility] 01-24-2023 08:00-0400 Promise to Return Mbanefo OJUKWU [facility] 01-24-2023 00:05-0400 Blood Pressure Location Mbanefo OJUKWU [facility] 01-24-2023 00:05-0400 Body temperature 97.7 [degF] Mbanefo OJUKWU [facility] 01-24-2023 00:05-0400 Diastolic blood pressure 76 mm[Hg] Mbanefo OJUKWU [facility] 01-24-2023 00:05-0400 Heart rate 83 /min Mbanefo OJUKWU [facility] 01-24-2023 00:05-0400 Mean blood pressure 99 mm[Hg] Mbanefo OJUKWU [facility] 01-24-2023 00:05-0400 SaO2% (BldA) [Mass fraction] 97 % Mbanefo OJUKWU [facility] 01-24-2023 00:05-0400 Systolic blood pressure 144 mm[Hg] Mbanefo OJUKWU [facility] 01-23-2023 19:36-0400 Heart rate 81 /min [facility]o [facility] [facility]23[facility]23 19:36-0400 SaO2% (BldA) [Mass fraction] 96 % Mbanefo OJUKWU [facility] 01-23-2023 19:36-0400 Body temperature 97.34 [degF] Mbanefo OJUKWU [facility] 01-23-2023 19:34-0400 Mean blood pressure 83 mm[Hg] Mbanefo OJUKWU [facility] 01-23-2023 13:00-0400 Body temperature 98.06 [degF] Mbanefo OJUKWU [facility] 01-23-2023 06:55-0400 Blood Pressure Location Mbanefo OJUKWU [facility] 01-23-2023 06:55-0400 Mean blood pressure 89 mm[Hg] Mbanefo OJUKWU [facility] 01-23-2023 06:55-0400 Respiratory rate 16 /min Mbanefo OJUKWU [facility] 01-23-2023 06:55-0400 SaO2% (BldA) [Mass fraction] 93 % Mbanefo OJUKWU [facility] 01-22-2023 23:00-0400 Body temperature 97.88 [degF] Mbanefo OJUKWU [facility] 01-22-2023 23:00-0400 Mean blood pressure 82 mm[Hg] Mbanefo OJUKWU [facility] 01-22-2023 23:00-0400 Respiratory rate 18 /min Mbanefo OJUKWU [facility] 01-22-2023 18:37-0400 Body temperature 97.52 [degF] Mbanefo OJUKWU [facility] 01-22-2023 18:36-0400 Mean blood pressure 81 mm[Hg] Mbanefo OJUKWU [facility] 01-22-2023 16:09-0400 Mean blood pressure 81 mm[Hg] Mbanefo OJUKWU [facility] 01-22-2023 16:07-0400 Body temperature 97.52 [degF] Mbanefo OJUKWU [facility] 01-22-2023 04:50-0400 Heart rate 77 /min Mbanefo OJUKWU [facility] 01-21-2023 21:09-0400 Heart rate 85 /min Mbanefo OJUKWU [facility] 01-21-2023 15:11-0400 Heart rate 78 /min Mbanefo OJUKWU [facility] 12-20-2022 09:37-0400 Hourly Rounding Maycol TSERING [facility] 12-20-2022 09:37-0400 Promise to Return Maycol TSERING [facility] 12-20-2022 09:06-0400 Heart rate 65 /min Maycol TSERING [facility] 12-20-2022 09:06-0400 Respiratory rate 20 /min Maycol TSERING [facility] 12-20-2022 09:06-0400 SaO2% (BldA) [Mass fraction] 92 % Maycol TSERING [facility] 12-20-2022 08:56-0400 Heart rate 61 /min Maycol TSERING [facility] 12-20-2022 08:56-0400 Respiratory rate 20 /min Maycol TSERING [facility] 12-20-2022 08:56-0400 SaO2% (BldA) [Mass fraction] 92 % Maycol TSERING [facility] 12-20-2022 08:51-0400 Hourly Rounding Maycol TSERING [facility] 12-20-2022 08:51-0400 Promise to Return Maycol TSERING [facility] 12-20-2022 08:50-0400 Hourly Rounding Maycol TSERING [facility] 12-20-2022 08:31-0400 Promise to Return Maycol TSERING [facility] 12-20-2022 07:29-0400 Heart rate 60 /min Maycolyasmine ARRIOLASLIN [facility] 12-20-2022 07:29-0400 SaO2% (BldA) [Mass fraction] 93 % Maycol TSERING [facility] 12-20-2022 07:28-0400 Body temperature 98.06 [degF] Maycol TSERING [facility] 12-20-2022 07:28-0400 Diastolic blood pressure 69 mm[Hg] Maycol TSERING [facility] 12-20-2022 07:28-0400 Mean blood pressure 94 mm[Hg] Maycol TSERING [facility] 12-20-2022 07:28-0400 Systolic blood pressure 143 mm[Hg] Maycolyasmine ARRIOLASLIN [facility] 12-20-2022 03:25-0400 Respiratory rate 16 /min Maycolyasmine ARRIOLASLIN [facility] 12-20-2022 00:15-0400 Body temperature 97.7 [degF] Maycolyasmine ARRIOLASLIN [facility] 12-20-2022 00:15-0400 Diastolic blood pressure 56 mm[Hg] Maycol TSERING [facility] 12-20-2022 00:15-0400 Systolic blood pressure 135 mm[Hg] Maycol TSERING [facility] 12-19-2022 19:28-0400 Body temperature 98.42 [degF] Maycol TSERING [facility] 12-19-2022 19:27-0400 Diastolic blood pressure 69 mm[Hg] Maycol TSERING [facility] 12-19-2022 19:27-0400 Mean blood pressure 90 mm[Hg] Maycol TSERING [facility] 12-19-2022 19:27-0400 Systolic blood pressure 134 mm[Hg] Maycol TSERING [facility] 12-19-2022 16:26-0400 gluc 111 mg/dL Maycol TSERING [facility] 12-19-2022 16:06-0400 Mean blood pressure 95 mm[Hg] Maycol TSERING [facility] 12-19-2022 16:00-0400 Body temperature 98.06 [degF] Maycol TSERING [facility] 12-19-2022 11:58-0400 gluc 201 mg/dL Maycol TSERING [facility] 12-19-2022 08:18-0400 gluc 93 mg/dL Maycol TSERING [facility] 12-19-2022 08:00-0400 Body temperature 98.6 [degF] Maycol TSERING [facility] 12-18-2022 05:46-0400 Blood Pressure Location Maycol TSERING [facility] 12-18-2022 05:46-0400 Heart rate 67 /min Maycol TSERING [facility] 12-18-2022 05:00-0400 Body temperature 98.42 [degF] Maycol TSERING [facility] 12-18-2022 05:00-0400 Mean blood pressure 78 mm[Hg] Maycol TSERING [facility] 12-18-2022 05:00-0400 Respiratory rate 20 /min Maycol TSERING [facility] 12-18-2022 04:00-0400 Mean blood pressure 77 mm[Hg] Maycol TSERING [facility] 12-18-2022 04:00-0400 Respiratory rate 21 /min Maycol TSERING [facility] 12-18-2022 03:00-0400 Mean blood pressure 75 mm[Hg] Maycol TSERING [facility] 12-18-2022 03:00-0400 Respiratory rate 22 /min Maycol TSERING [facility] 12-18-2022 00:09-0400 Heart rate 85 /min Maycol TSERING [facility] 12-17-2022 23:54-0400 Heart rate 86 /min Maycol TSERING [facility] 12-02-2022 14:00-0400 SaO2% (BldA) [Mass fraction] 93 % Maycol TSERING [facility] 12-02-2022 13:00-0400 Hourly Rounding Maycol TSERING [facility] 12-02-2022 13:00-0400 Promise to Return Maycol TSERING [facility] 12-02-2022 12:58-0400 Heart rate 85 /min Maycol TSERING [facility] 12-02-2022 12:58-0400 SaO2% (BldA) [Mass fraction] 88 % Maycol TSERING [facility] 12-02-2022 12:58-0400 Body temperature 97.7 [degF] Maycolyasmine ARRIOLASLIN [facility] 12-02-2022 12:58-0400 Diastolic blood pressure 75 mm[Hg] Maycol TSERING [facility] 12-02-2022 12:58-0400 Mean blood pressure 102 mm[Hg] Maycol TSERING [facility] 12-02-2022 12:58-0400 Systolic blood pressure 157 mm[Hg] Maycol TSERING [facility] 12-02-2022 12:10-0400 Hourly Rounding Maycol TSERING [facility] 12-02-2022 12:10-0400 Promise to Return Maycol TSERING [facility] 12-02-2022 11:30-0400 Hourly Rounding Maycol TSERING [facility] 12-02-2022 11:30-0400 Promise to Return Maycol TSERING [facility] 12-02-2022 08:00-0400 Blood Pressure Location Maycol TSERING [facility] 12-02-2022 08:00-0400 Diastolic blood pressure 79 mm[Hg] Maycol TSERING [facility] 12-02-2022 08:00-0400 gluc 127 mg/dL Maycol TSERING [facility] 12-02-2022 08:00-0400 Heart rate 76 /min Maycol TSERING [facility] 12-02-2022 08:00-0400 Respiratory rate 20 /min Maycol TSERING [facility] 12-02-2022 08:00-0400 Systolic blood pressure 141 mm[Hg] Maycolyasmine ARRIOLASLIN [facility] 12-02-2022 07:46-0400 Heart rate 66 /min Maycol TSERING [facility] 12-02-2022 07:46-0400 Respiratory rate 18 /min Maycol TSERING [facility] 12-02-2022 07:40-0400 Respiratory rate 18 /min Maycol TSERING [facility] 12-01-2022 23:32-0400 Body temperature 97.16 [degF] Maycol TSERING [facility] 12-01-2022 23:32-0400 Diastolic blood pressure 77 mm[Hg] Maycolyasmine ARRIOLASLIN [facility] 12-01-2022 23:32-0400 Mean blood pressure 101 mm[Hg] Maycol TSERING [facility] 12-01-2022 23:32-0400 Systolic blood pressure 130 mm[Hg] Maycol TSERING [facility] 12-01-2022 20:01-0400 Body temperature 97.16 [degF] Maycol TSERING [facility] 12-01-2022 20:01-0400 Mean blood pressure 101 mm[Hg] Maycol TSERING [facility] 12-01-2022 12:07-0400 Body temperature 97.52 [degF] Maycol TSERING [facility] 12-01-2022 07:30-0400 Body temperature 96.98 [degF] Maycol TSERING [facility] 12-01-2022 06:00-0400 gluc 110 mg/dL Maycol TSERING [facility] 11-30-2022 23:32-0400 FIO2 30 % Maycol TSERING [facility] 11-30-2022 20:04-0400 Mean blood pressure 98 mm[Hg] Maycol TSERING [facility] 11-30-2022 04:38-0400 Mean blood pressure 91 mm[Hg] Maycol TSERING [facility] 11-29-2022 20:16-0400 FIO2 30 % Maycol TSERING [facility] 11-29-2022 19:00-0400 Blood Pressure Location Maycol TSERING [facility] 11-29-2022 08:10-0400 FIO2 30 % Maycol TSERING [facility] 11-29-2022 04:08-0400 gluc 107 mg/dL Maycol TSERING [facility] 11-29-2022 04:08-0400 Mean blood pressure 80 mm[Hg] Maycol TSERING [facility] 11-29-2022 00:16-0400 Heart rate 48 /min Maycol TSERING [facility] 11-28-2022 22:55-0400 Respiratory rate 19 /min Maycol TSERING [facility] 11-28-2022 21:45-0400 Respiratory rate 18 /min Maycol TSERING [facility] 11-28-2022 20:45-0400 Respiratory rate 22 /min Maycol TSERING [facility] 11-28-2022 18:55-0400 SaO2% (BldA) [Mass fraction] 95.4 % Maycol CAGLE [facility] Resp Auto SS 11-28-2022 17:13-0400 Heart rate 59 /min Maycol CAGLE [facility] 09-07-2022 01:10-0400 Diastolic blood pressure 53 mm[Hg] [facility] 09-07-2022 01:10-0400 Heart rate 70 /min [facility] 09-07-2022 01:10-0400 SaO2% (BldA) [Mass fraction] 96 % [facility] 09-07-2022 01:10-0400 Systolic blood pressure 135 mm[Hg] [facility] Encounters Encounter Date Encounter Type Care Provider Facility Start: 03-22-2024 End: 03-22-2024 [facility] Start: 03-21-2024 End: 03-21-2024 Telephone encounter [...] Start: 01-21-2024 End: 01-21-2024 ambulatory SHAWN ALEGRIA [facility] Start: 01-15-2024 Evaluation and management of inpatient HAYLEY Griffith [facility] Start: 01-14-2024 Evaluation and management of inpatient HAYLEY Griffith [facility] Start: 01-12-2024 Evaluation and management of inpatient ARIC MIRZA [facility] Start: 01-11-2024 Evaluation and management of inpatient DONNIE [facility] Start: 01-10-2024 [facility] Start: 01-10-2024 [facility] Start: 01-09-2024 Evaluation and management of inpatient [facility] Start: 01-09-2024 End: 01-09-2024 ambulatory UNKNOWN PROVIDER Facility:[facility] Start: 01-09-2024 End: 01-16-2024 Evaluation and management of inpatient YESENIA HUGHESBETH [facility] Start: 01-04-2024 End: 01-17-2024 Emergency department patient visit [facility] Start: 02-01-2023 ambulatory Robin Garcia acility:[facility] Start: 01-21-2023 End: 01-24-2023 Evaluation and management of inpatient New oJhnson Facility:[facility] Start: 01-21-2023 End: 01-24-2023 Evaluation and management of inpatient Johnnieshahnaz OJUKWU [facility] Start: 01-15-2023 End: 01-16-2023 ambulatory Donta NOONAN Facility:[id number] Start: 01-15-2023 End: 01-15-2023 Off-Site [facility] Start: 12-22-2022 End: 12-23-2022 ambulatory Donta NOONAN Facility:CD:[id number] Start: 12-22-2022 End: 12-22-2022 Off-Site [facility] Start: 12-18-2022 End: 12-20-2022 Evaluation and management of inpatient Maycol A TSERING Facility:[facility] Start: 12-17-2022 End: 12-20-2022 Evaluation and management of inpatient Maycol A TSERING [facility] Start: 12-14-2022 End: 01-16-2023 ambulatory Donta NOONAN Facility:[id number] Start: 12-14-2022 End: 01-16-2023 In-Between Visit [facility] Start: 12-11-2022 ambulatory Donta NOONAN Facilit y:[facility] Start: 12-03-2022 End: 12-03-2022 Off-Site [facility] Start: 12-03-2022 End: 12-04-2022 ambulatory Donta NOONAN Facility:[id number] Start: 12-02-2022 End: 01-16-2023 ambulatory Donta ANSLEY Facility:[facility] Start: 11-30-2022 ambulatory Facility:[id number] Start: 11-30-2022 ambulatory Facility:[id number] Start: 11-29-2022 ambulatory Facility:[id number] Start: 11-29-2022 End: 12-02-2022 Evaluation and management of inpatient Maycol A TSERING Facility:[facility] Start: 11-28-2022 End: 12-02-2022 Evaluation and management of inpatient Maycol A TSERING [facility] Start: 11-26-2022 End: 11-27-2022 ambulatory Bienvenido Barroso Facility:[facility] Start: 11-26-2022 End: 11-26-2022 Patient encounter procedure Bienvenido Barroso [facility] Start: 09-26-2022 End: 09-28-2022 ambulatory Ganesh Minaya Facility:[facility] Start: 2022 End: 2022 ambulatory [facility] Transport Start: 2022 End: 2022 Emergency department patient visit [facility] Triage, Treat and Transport Comment on [...] screening for protein Diabetes: Urine Protein Screening [facility] Start: 01-23-2024 Influenza vaccination Influenza Vacc ine (#1) [facility] Start: 01-02-2023 Hemoglobin A1c measurement Diabetes: Hemoglobin A1C [facility] Start: 10-15-2022 Medicare Annual Well ness (AWV) Medicare Annual Wellness (AWV) [facility] Start: 09-21-2022 Annual Wellness Visi t (G0439) Annual Wellness Visit (G0439) [facility] Start: 05-14-2018 Pneumococcal vaccination Pneum ococcal Vaccine(s) [...] 1955 Glaucoma screening Diabetes: R etinopathy Screening [facility] BLOOD CULTURE 1 BLOOD CULTURE 1 Lab Routine 03/07/2024 1:08 PM EDT [facility] BLOOD CULTURE 2 BLOOD CULTURE 2 Lab Routine 03/07/2024 1:28 PM EDT [facility] Immunizations Immunization Date Immunization Notes Care Provider [facility] 03-12-2022 SARS-CoV-2 (COVID-19 ) [id number] Donta NOONAN [facility] 02-04-2022 influenza virus vaccine, unspecified formulation Rebecca Alcala MD Work Phone: [facility] 03-17-2021 Influenza, injectabl e, high-dose seasonal, quadrivalent, 0.7 mL, preservative free (ZZS=906) [facility] 07-15-2020 Pfizer (12+ yrs) SARS-COV-2 (COVID-19) vaccine, mRNA, spike protein, LNP, pres. free, 30 mcg/0.3mL dose (VGP=289) [facility] 06-26-2020 Pfizer (12+ yrs) SARS-COV-2 (COVID-19) vaccine, mRNA, spike protein, LNP, pres. free, 30 mcg/0.3mL dose (UVV=876) [facility] 06-23-2019 influenza, high dose seasonal, preservative-free [facility] 05-14-2017 influenza, high dose seasonal, preservative-free [facility] 05-14-2017 pneumococcal conjuga te vaccine, 13 valent [facility] 04-04-2014 influenza, injectabl e, madin cee canine kidney, preservative free [facility] NEGATED: Highlighted row has not occurred!06-15-2014 pneumococcal polysaccharide vaccine, 23 valent Bienvenido Barroso [facility] Comment on above: Result Note: pt had vaccine last year per Payers Date Payer Category Payer Medicaid [id number] 2023 Self-pay 2022 Unknown [id number] 2022 Medicare [employer] [id number] 2022-Present [address] [place] [address] Medicare [id number] 2022 Unknown [id number] 2022 Medicare (Managed Care) [employer] [id number] 2022 Unknown [employer] [id number] 2022-Present [address] [place] [id number] [id number] 1944 Unknown [id number] 2.16.840.1.698209.3.579.2. 356 1944 Unknown [id number] 2.16.840.1.786560.3.579.2. 356 1944 Unknown [id number] 2.16.840.1.140943.3.579.2. 356 1944 Unknown [id number] 2..840.1.210330.3.579.2. 72 1944 Unknown [id number] 2.16.840.1.077076.3.579.2. 1944 Unknown [id number] 2..840.1.248252.3.579.2. 1944 Unknown [id number] 2..840.1.165159.3.579.2. 1944 Unknown [id number] 2.840.1.859260.3.579.2. 1944 Unknown [id number] 2..840.1.119008.3.579.2. 1944 Unknown [id number] 2.840.1.039082.3.579.2 1944 Unknown [id number] 2.840.1.302950.3.579.2. 1944 Unknown [id number] .840.1.568545.3.579.2. 1944 Unknown [id number] 2.840.1.152286.3.579.2. 1944 Unknown [id number] .840.1.975664.3.579.2 1944 Unknown [id number] 2..840.1.133945.3.579.2. 1944 Unknown [id number] 2.840.1.744849.3.579.2. 73 1944 Unknown [id number] 2.840.1.753147.3.579.2. 1286 Social History Date Type Detail Facility Tobacco smoking stat [facility] Tobacco smoking consumption unknown [facility] Start: 1945 Sex Assigned At Not on file [facility] Start: 04-24-2021 End: 10-19-2022 Tobacco smoking status Ex-smoker (finding) [facility] Start: 11-25-2022 Sex Assigned At Male F [facility] End: 05-24-1959 History of tobacco use Current smoker [facility] End: 05-24-1959 History of tobacco use Cigarette Smoker [facility] Start: 11-25-2022 Alcoholic beverage intake Lifetime non-drinker (finding) [facility] Start: 11-25-2022 History of Social function [facility] Start: 10-19-2022 Alcohol Comment Caffeine: 1-2 cups/day, occasional soda [facility] Medical Equipment Procedure Code Equipment Code Equipment Origin al Text Equipment Identifier Dates 1 each by Other route if needed (3x as needed daily). Use as instructed [id number] Start: 10-21-2022 Functional Status Date Assessment Result Facility 01-21-2023 Functional Status No [facility] 01-21-2023 Functional Status [facility] 12-18-2022 Functional Status N/A [facility] 12-17-2022 Functional Status [facility] 11-29-2022 Functional Status N/A [facility] 11-28-2022 Functional Status [facility] Clinical Notes 09-07-2022 to 03-22-2024 Telephone Encounter - Cortney Nicholson NP - 03/21/2024 9:22 AM EDTTelephone Encounter - Cortney Nicholson NP - 03/21/2024 9:22 AM EDT Note Date & Type Note Facility 03-22-2024 Note [place] [facility] Subjective Clyde Humphrey is a 78 y.o. year old male patient being seen for heart block (S/p pacemaker insertion in Dec 2023) and Pacemaker Check (Per [employer] rep - He's had 12.7 hours of afib since Dec 2023, with a burden of < 1%. ) Patient Active Problem List Diagnosis Heart block Onychomycosis Pain in left toe(s) Pain in right toe(s) Type II diabetes mellitus with neurological manifestations (CMS/HCC) Pacemaker HPI Patient was [facility] to [facility] on 01/09/2024 because of complete heart block discovered in the half-way upon checking of his vitals. He did [...] to severe bradycardia. He has been in half-way. He is on oxygen at 4 L/min [...] Diagnosis Date COPD (chronic obstructive pulmonary disease) ([facility]) Seizure ([facility]) Sleep apnea No past surgical [...] or gallops. RESPIRAT (more content not included)... [facility] 03-21-2024 Telephone encounter Note Rx for ativan is sent for this [facility] patient today. #90 tabs. [facility] 03-21-2024 Miscellaneous Notes Rx for ativan is sent for this [facility] patient today. #90 tabs. documented in this encounter [facility] 01-21-2024 Note Patient underwent [employer] pacemaker implantation due to third-degree AV [...] follow-up appointment with cardiology in 2 months [facility] 01-16-2024 Note DUAL CHAMBER PACEMAK ER IMPLANT PROCEDURE NOTE DATE OF PROCEDURE: 01/10/24 PERFORMING PHYSICIAN: Dr. Reno Welch CONSENT: Patient LOCATION: EP Lab PROCEDURE PERFORMED: 1. Implantation of pacemaker ([employer]) 2. Ultrasound guided venous access INDICATIONS: [...] 78-year-old man who is transferred from the [facility] for complete heart block. This was discovered at the half-way where he resides when the nurses noted [...] using modified seldinger technique using a 5 Czech micro-puncture needle on two occasions and 0.35 [...] for the device above the muscle. 6 Czech Safesheaths were placed over the wire. An active fixation [employer] pacing lead was then delivered through the 6Fsheath to the right ventricle. After confirmation of lead position on orthogonal views (GOMEZ and ALBANIAN) to confirm septal position, the screw was activated, and the lead was placed in the right ventricular mid cavity towards the septum. After confirmation of good sensing parameters, injury pattern and pacing thresholds, 10V pacing was done and no diaphragmatic stimulation was noted. It was then secured in the pocket using three 1-0 Silk sutures. Then an active fixation [employer] lead was delivered through the 6Fsheath to the right atrial appendage. After confirmation of lead position on orthogonal views (GOMEZ and ALBANIAN), the screw was activated. Good sensing parameters, [...] any concerns. Reno Welch MD Cardiac Electrophysiology [facility] 01-16-2024 Note Physical Therapy Physical Therapy Patient Name: Clyde Humphrey Today's Date: 01/16/2024 Admit Date: 01/09/2024 Time: 8:55 AM Attempted PT treatment today however RN reports patient being agitated at this time, will check back later as able. No charges associated with this encounter. [facility] 01-16-2024 Note discharge planning: to [facility] 0841 Insurance Approval Letter received for Patient to discharge to [facility] SN[facility]; Discharge Order in place; notice of insurance approval and discharge order sent to SNF, via Better[employer] system, with request to confirm they have a bed available for Patient to return to them today (awaiting reply) 1129 communication received from [facility], via Better[employer] system: Yes please call report to [phone] station 2. Please FAX hi med list to [phone] as I am not in the building today ^bedside RN and RucCC notified of bed available today 1135 Patient resting in bed, hand sign writer unable to wake ([phone]) PC to Patient's spouse, to notify of discharge order and bed available and transport arrangements; no answer; vm left with contact information and request for return call 1152 AVS faxed to [facility] [phone] ([phone]) PC to Patient's spouse, to notify of discharge order and bed available and transport arrangements; no answer; second voicemail not left ([phone]) PC to Patient's daughter Amy, to notify of discharge order and transport time; Amy stating Patient's spouse lives at [facility] as well, so would not be answering her phone; hand sign writer notified Amy of 1:30p pickup time for transportation to return to [facility] 1206 AVS and transport time sent to [facility] via [employer] system Discharge Transportation Packet placed with Patient's physical charte Transportation scheduled for 1:30p pickup Nurse call report to [facility] [phone] Station 2 ^bedside RN, RucCC notified [facility] 01-16-2024 Note Hospital Medicine Daily Progress Note - 01/16/2024 7:25 AM; Room: [address] [place] [address] Admission: 01/09/2024 1:24 AM; Length of stay: 7 days THE HOSPITALIST TEAM PREFERS TO USE [employer] CHAT FOR COMMUNICATION 7AM-7PM. IF I DO NOT RESPOND WITHIN 15 MINUTES, PLEASE PAGE ME/CALL THROUGH THE METER CALIBRATOR. FROM 7PM-7AM, PLEASE PAGE [phone](COVR) Code Status: Full Code Barriers to Discharge: None Expected Discharge Date: 01/15 Discharge Destination: shelter facility Overview Patient is seen for evaluation [...] , FREET4 , CORTISOL , FEV1 , WKG2SEP , DLCO , RVSP , HDL , LDL Lab Results Component Value Date [id number] 179 (L) 01/13/2024 IRON 37 (L) 01/13/2024 [...] warranted Impression: 1. Unremarkable exam Electronically signed: iMguel Santiago MD. Discharge Planning Expected Discharge Disposition: Fdc Facility (03) PT Disc (more content not included)... [facility] 01-15-2024 Note Hospital Medicine Discharge Summary Final Discharge Diagnosis: Third degree heart block Admission Diagnosis: Heart block [I45.9] Hospital course: 78yoM with history of dementia, seizure disorder, COPD, hypertension who was admitted to [facility] on 01/08 for complete heart block. Patient initially presented to [facility] for multiple episodes of presyncope and heart rate was noted to be in 30s. Confirmed complete AV disassociation and the patient was transferred to [facility] for EP evaluation. He was initially [...] Time Provider Department Center 01/17/2024 1:30 PM [facility] CV CLINIC DEVICE CHECK HVC CARD [place] HeartVAS Your medication list START taking these [...] Medications These medications were sent to [facility] - [place], [place] - [address], [facility] [address] divalproex 500 mg EC tablet spironolactone 25 mg tablet Information about where to get these medications is not yet available Ask your nurse or doctor about these medications cyanocobalamin 1,000 mcg tablet doxycycline 100 mg capsule Clyde has No Known Allergies. Disposition: Fdc Facility (03) Discharge Condition: Stable Code Status: [...] Lab Units 01/15/24 (more content not included)... [facility] 01-14-2024 Note 01/14/24 1300 Post Acute Info Authorization started for SNF () Facility name [facility] When was authorization started? 01/13/24 What time was authorization started? 1038 Reference number for submission ([id number]) Determination Approved OTM staff notified Sherley Rivers When was authorization received? 01/14/24 What time was authorization received? 1302 When does authorization ? 01/21/24 How are we submitting authorization Website Portal What insurance are we submitting through (PredPol) Approved authorization for [facility] SNF, OTM notified. [facility] 01-14-2024 Note Hospital Medicine Daily Progress Note - 01/14/2024 11:18 AM; [facility] Admission: 01/09/2024 1:24 AM; Length of stay: 5 days THE HOSPITALIST TEAM PREFERS TO USE [employer] CHAT FOR COMMUNICATION 7AM-7PM. IF I DO NOT RESPOND WITHIN 15 MINUTES, PLEASE PAGE ME/CALL THROUGH THE METER CALIBRATOR. FROM 7PM-7AM, PLEASE PAGE [phone](COVR) Code Status: Full Code Barriers to Discharge: Precert Expected Discharge Date: 01/13 Discharge Destination: shelter facility Overview Patient is seen for evaluation [...] , FREET4 , CORTISOL , FEV1 , YFR6QRH , DLCO , RVSP , HDL , LDL Lab Results Component Value Date [id number] 179 (L) 01/13/2024 IRON 37 (L) 01/13/2024 TIBC 244 (L) 01/13/2024 Imaging Electrophysiology procedure Narrative: DUAL CHAMBER PACEMAKER IMPLANT PROCEDURE NOTE DATE OF PROCEDURE: 01/10/24 PERFORMING PHYSICIAN: Dr. Reno Welch CONSENT: Patient LOCATION: EP Lab PROCEDURE PERFORMED: 1. Implantation of pacemaker ([employer]) 2. Ultrasound guided venous access INDICATIONS: 1. 3rd degree AV block 2. Junctional bradycardia PROCEDURAL SEDATION: Versed and Fentanyl. Moderate sedation was administered by the sedation nurse under my supervision and noted in the (more content not included)... [facility] 01-14-2024 Note Occupational Therapy Occupational Therapy Treatment Patient Name: Clyde Humphrey : 1945 Today's Date: 01/14/2024 Problem List Patient Active Problem List Diagnosis Heart block Pain: Objective General Visit Information: OT Last Visit OT Received On: 01/14/24 General Subjective: RN reports pt is appropriate for session. On arrival pt WICHITA but use of writing communication for pt [...] transfers standing five minutes 01/12/24 02/09/24 -- [facility] 01-13-2024 Note Speech Hotel Services Sales Representative ology Speech/Language Pathology Clinical Swallow Assessment Rx: [...] Called and spoke to Sierra RN at [facility] and she reported he always wears dentures and does not having swallowing issues prior to this admission at [facility]. Baseline Assessment Temperature Spikes Noted: Not applicable History of Intubation: No Behavior/Cognition: Alert, Cooperative (very hard of hearing due to not having his hearing aides in hospital) Dentition: Edentulous (per [facility] ECF, pt wears dentures, but they are not at hospital) Patient Positioning: Upright in bed Baseline Vocal Quality: Normal Volitional Swallow: Within Functional Limits Diet Level Prior to exam: Regular diet with thin liquid No family present for exam History of Present Illness Clyde Humphrey is a 78-year-old gentleman with past medical history significant for dementia has been transferred from [facility] due to high degree AV block. The patient is unable to answer questions appropriately due to his dementia so history was only taken by the signout received from [place]. The patient was noted to have multiple episodes of presyncope over the last few days and today his heart rate was noted to be in 30s upon their initial evaluation. EKG showed a complete A-V dissociation after which thick reached out to [facility] cardiology for possible pacemaker placement. Due to significant bradycardia the patient is being transferred to [facility] ICU for close hemodynamic monitoring and [...] Medications: Crushed Recommendations Duration of Treatment: 15 [facility] 01-13-2024 Note 01/13/24 1038 Post Acute Info Authorization started for SNF (03) Facility name [facility] When was authorization started? 01/13/24 What time was authorization started? 1038 Reference number for submission ([id number]) How are we submitting authorization Website Portal What insurance are we submitting through (PredPol) Submitted precert request for [facility] SNF, OTM to follow. [facility] 01-13-2024 Note Attempted to call Wi pee Dooley to confirm return to [facility] SN[facility] as well as get consent to start pre-cert with no answer and going to voicemail. Called listed aidan Parks [phone] who answered and stated that Soumya has stage 4 cancer and is also currently at [facility] and also cited that her cognition has declined substantially. Aidan Parks also cited that she is pt's HCPOA. Obtained confirmation of intent to return and also to start the pre-cert to return to [place]. Requested OTM to start pre-cert and updated AVS. UPDATE 11:05AM- [facility] confirmed that aidan Parks is an alternate HCPOA and also advised it would be better to contact her. [facility] 01-13-2024 Note Hospital Medicine Daily Progress Note - 01/13/2024 8:09 AM; Room: [address] [place] [address] Admission: 01/09/2024 1:24 AM; Length of stay: 4 days THE HOSPITALIST TEAM PREFERS TO USE [employer] CHAT FOR COMMUNICATION 7AM-7PM. IF I DO NOT RESPOND WITHIN 15 MINUTES, PLEASE PAGE ME/CALL THROUGH THE METER CALIBRATOR. FROM 7PM-7AM, PLEASE PAGE [phone](COVR) Code Status: Full Code Barriers to Discharge: Precert Expected Discharge Date: 01/13 Discharge Destination: shelter facility Overview Patient is seen for evaluation [...] , FREET4 , CORTISOL , FEV1 , ZIY1YHD , DLCO , RVSP , HDL , LDL No results found for: LUJEZQYF12 , IRON , TIBC , C3 , [...] There are intracranial (more content not included)... [facility] 01-12-2024 Note Daughter, felipe Parks via phone concerning pt transfer to [facility] from MICU and pt status improvements/plan of care. [facility] 01-12-2024 Note Attestation signed by Cody Richardson MD at 01/12/2024 11:36 PM I reviewed the salient portions of the patient history. I have seen and examined the patient during rounds with the resident/fellow. I repeated the guajardo components of the exam. Agree with the noted assessment and plan. Cody Richardson MD [facility] Pulmonary and Critical Care Medicine Pulmonary Progress Note Patient - Clyde Humphrey Age - 78 [facility]. [facility] 1945 [id number] Date of Admission - 01/09/2024 1:24 AM HPI/Hospital Course Clyde Humphrey is a 78-year-old gentleman with past medical history significant for dementia has been transferred from [facility] due to high degree AV block. The patient is unable to answer questions appropriately due to his dementia so history was only taken by the signout received from [place]. The patient was noted to have multiple episodes of presyncope over the last few days and today his heart rate was noted to be in 30s upon their initial evaluation. EKG showed a complete A-V dissociation after which thick reached out to [facility] cardiology for possible pacemaker placement. Due to significant bradycardia the patient is being transferred to [facility] ICU for close hemodynamic monitoring and [...] patient's raccoon eyes (more content not included)... [facility] 01-12-2024 Note Physical Therapy Physical Therapy Evaluation Patient Name: Clyde Humphrey : 1945 Today's Date: 01/12/2024 Patient is a 78 y/o male presenting from [facility] and OSH with heart block. Episodes [...] Diagnosis Date COPD (chronic obstructive pulmonary disease) ([facility]) Seizure ([facility]) Sleep apnea No past surgical [...] time, Follows one step commands with repetition (WICHITA makes command following difficult) General Assessment General Assessment Hearing: Significantly WICHITA - best communication by writing Home Living Home Living Type of Home: assisted Home Adaptive Equipment: Walker rolling, Wheelchair-power Prior Level of Function Prior Function Level of [place]: Needs assistance with ADLs, Needs assistance with [...] room: Total He (more content not included)... [facility] 01-12-2024 Note Occupational Therapy Occupational Therapy Evaluation Patient Name: Clyde Humphrey : 1945 Today's Date: 01/12/2024 Time In: 1015 Time Out: 1039 Clyde Humphrey is a 78-year-old gentleman with past medical history significant for dementia has been transferred from [facility] due to high degree AV block. PPM 01/10/24 General Subjective: friendly and cooperative but not a reliable historian, he is very WICHITA but able to read Patient Active Problem List Diagnosis Heart block Past Medical History: Diagnosis Date COPD (chronic obstructive pulmonary disease) ([facility]) Seizure ([facility]) Sleep apnea No past surgical [...] redirect Memory: Decreased short term memory, Decreased mcc memory Communication: Intact General Assessment General Assessment Hearing: (very citizen [place]atom[place]) Home Living Home Living Type of Home: assisted Home Adaptive Equipment: Wheelchair-power Prior Level of Function Prior Function Level of [place]: Needs assistance with ADLs, Needs assistance with [...] Eating meals?: None (Independent) Total Score OT [facility]: 14 Assessment/Plan OT Assessment OT Impairments: Decreased ADL status, Decreased endurance, Decreased functional mobility OT Assessment/RURAL CARRIER ASSOCIATE Summary: (needs skilled OT due to weakness [...] until discharge & PRN OT Discharge Recommendations: alf facility placement OT - Discharge Recommendations Placed: [...] LTG - Pat (more content not included)... [facility] 01-12-2024 Note Phoned pt's to discuss DC plan to return to [facility]. [facility] is requesting precert to accept pt back under skilled. Await call back, Await PT/OT recommendations. [facility] 01-12-2024 Note Updates sent to [facility] 01-11-2024 Note Attestation signed by Cody Richardson MD at 01/11/2024 9:49 PM I reviewed the salient portions of the patient history. I have seen and examined the patient during rounds with the resident/fellow. I repeated the guajardo components of the exam. Agree with the noted assessment and plan. Cody Richardson MD [facility] Pulmonary and Critical Care Medicine Pulmonary Progress Note Patient - Clyde Humphrey Age - 78 y.o. - 1945 N - [id number] [id number] Date of Admission - 01/09/2024 1:24 AM HPI/Hospital Course Clyde Humphrey is a 78-year-old gentleman with past medical history significant for dementia has been transferred from [facility] due to high degree AV block. The patient is unable to answer questions appropriately due to his dementia so history was only taken by the signout received from [place]. The patient was noted to have multiple episodes of presyncope over the last few days and today his heart rate was noted to be in 30s upon their initial evaluation. EKG showed a complete A-V dissociation after which thick reached out to [facility] cardiology for possible pacemaker placement. Due to significant bradycardia the patient is being transferred to [facility] ICU for close hemodynamic monitoring and [...] Intake/Output Summary (Last 24 hours) at 01/11/2024 7941 Last data filed at 01/11/2024 1253 Gross [...] fall? Also requested (more content not included)... [facility] 01-11-2024 Note Problem: Depression Goal: LTG-Alleviate [...] goals for the shift include Stable hemodynamics [facility] 01-11-2024 Note Attestation signed by Guilherme [...] MD Cardiology Progress Note Subjective Subjective: S/p [employer] DC-PPM. No overnight events. Mentation appears [...] QT Interval 514 QTC CALCULATION(BAZETT) 439 P [place] -25 R-[place] -30 T Wave [place] -28 Impression Sinus tachycardia with complete heart [...] (TTE) complete Result Date: 01/10/2024 1 1 [facility] Heart Station [address] [facility] [place] [address] [phone] (fax) Echocardiogram-[facility] Name: CLYDE HUMPHREY Study Date: 01/10/2024 01:43 PM B/P: 107 mmHg/64 mmHg HR: 52 bpm Date of : 1945 Location: [facility] Height: 65 in. Age: 78 year(s) Patient Room: 3235 Weight: 218 lb. Gender: Male Patient Status: InPt BSA: 2.05 m2 Indication: Complete heart block, d (more content not included)... [facility] 01-10-2024 Note Attestation signed by Cody [...] services was 36 minutes. Cody Richardson MD [facility] Pulmonary and Critical Care Medicine Pulmonary Progress Note Patient - Clyde Humphrey Age - 78 y.o. - 1945 [id number] Date of Admission - 01/09/2024 1:24 AM HPI/Hospital Course Clyde Humphrey is a 78-year-old gentleman with past medical history significant for dementia has been transferred from [facility] due to high degree AV block. The patient is unable to answer questions appropriately due to his dementia so history was only taken by the signout received from [place]. The patient was noted to have multiple episodes of presyncope over the last few days and today his heart rate was noted to be in 30s upon their initial evaluation. EKG showed a complete A-V dissociation after which thick reached out to [facility] cardiology for possible pacemaker placement. Due to significant bradycardia the patient is being transferred to [facility] ICU for close hemodynamic monitoring and [...] shift. Patchy hypoattenuation (more content not included)... [facility] 01-10-2024 Note Consulted with notif ication that patient is from a half-way. Has dementia. No family at bedside. Appears patient may be from [facility] - message left for spouse, Soumya. Preliminary referral made to [place] to confirm. [facility] 01-10-2024 Note Problem: Depression Goal: LTG-Alleviate [...] goals for the shift include Stable hemodynamics [facility] 01-10-2024 Note Attestation signed by Guilherme [...] QT Interval 514 QTC CALCULATION(BAZETT) 439 P [place] -25 R-[place] -30 T Wave [place] -28 Impression Sinus tachycardia with complete heart [...] Maintain telemetry Optimize electrolytes Trang Eagle MD Lung Puller - PGY5 [facility] 01-09-2024 Note Attestation signed by Donnie Cavazos MD at 01/09/2024 1:28 PM I was present during the critical portion of the procedure and immediately available to assist Arterial line placement PATIENT: Clyde Humphrey DATE: 01/09/2024 PROCEDURE METER CALIBRATOR: Art Suh MD ATTENDING PHYSICIAN: Donnie Cavazos [...] PGY6 [facility] Pulmonary/Critical Care 01/09/2024 5:45 AM [facility] 01-24-2023 Evaluation + Plan note Extrac gi from: Title:Discharge Note Author:New Johnson DO Date:01/24/23 Discharge To, Anticipated II - Fdc Unit Discharged to - Home independently Transported [...] When Contact Information Dharmesh POTTS, Bienvenido Chavira, [address] [address]- Additional Instructions: Dementia, Wxak-ib-Lwpm Extracted from: Title:APSO Note Author:New Johnson DO Gerry e:01/23/23 1. Generalized weakness (R53 .1: Weakness) IV fluids, trend BUN and creatinine PT/OT Currently awaiting pre-CERT for placement 2. Alzheimers disease (G30.9: Alzheimer's disease, unspecified) Continue Seroquel 3. 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 Alzheimers disease (G30.9: Alzheimer's disease, unspecified) Continue Seroquel 3. 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 COPD [...] Ordered: Initial Hospital Care/Day Moderate 55 Minutes 41822 2. Alzheimers disease (G30.9: Alzheimer's disease, unspecified) Continue Seroquel 3. 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 [facility]09-03-2023 [facility] HospitalComment on above:Result Comment: Electronically Signed By: New Johnson DO\.br\Date and Time Signed: 01/24/23 09:57 [id number] Hospital Discharge instructions Patient Education 01/24/2023 09:54:03 Dementia, Vuem-kh-Jmxo Dementia Dementia is a condition that affects [...] Follow these instructions at home: Medicines Take kajb-crv-adbcggi and prescription medicines only as told by [...] find more information Alzheimer's Association: www.alz.org National [place] on Aging: www.susie.nih.gov/alzheimers World Health Organization: www.who.int [...] the National Suicide Prevention Lifeline at or 279 in the [place] This is open 24 hours a day. Text the Crisis Text Line at 344460. Summary Dementia often affects memory and thinking. [...] provider. Document Revised: 12/03/2021 Document Reviewed: 09/23/2020 [employer] Patient Education 2022 [employer]. Follow Up Care 01/21/2023 15:06:04 With:Dharmesh POTTS, Bienvenido Chavira, [facility] Address: [address] [place] [id number] When: Unknown [facility]08-31-2023 [facility]Select [facility] HospitalComment on above:Result Comment: Electronically Signed By: New Johnson DO.br\Date and Time Signed: 01/21/23 17:53 [id number] Evaluation + Plan note Extracted from: Title:Discharge Note Author:MICHAEL POTTS, Jamir Gerry e:12/20/22 stable Discharge To, Anticipated II - Fdc Unit Discharged to - alf unit SNF Discharge Diet(s): Calorie Controlled- 1800 Calorie Diet (12/20/22 09:46:00) Prescriptions alprazolam 0.5 mg Tab, 0.5 mg= 1 tab(s), Oral, Daily, PRN aspirin 81 mg Oral EC Tab, 81 mg= 1 tab(s), Oral, Daily Augmentin 875 mg oral tablet, 1 tab(s), Oral, q12hr ergocalciferol 50,000 intl units Cap, 77632 International_Unit= 1 cap(s), Oral, q7day furosemide 40 [...] BID With When Contact Information Bienvenido Dharmesh [address] [place], [place] [id number] Audit Verify (1) Additional Instructions: Call for followup appointment [...] ultimately benefit being only slightly on the chip 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 Coronary artery disease (I25.10: Atherosclerotic heart disease of [place] coronary artery without angina pectoris) Patient had [...] recent hospitalization has been titrated at the [facility]. He was recently placed on [...] Tests Pending * Legionella Antigen Urine 12/18/22 [facility]07-30-2023 NoteCRM entered the room to discuss dc planning. PCP, DME and insurance discussed. Patient is alert andinvolved in plan of care. Contact information given and whiteboard updated. Pt will [facility] room 17 today. CRM to follow.[facility] HospitalComment on above:Result Comment: Electronically Signed By: Natalie Grant\Date and Time Signed: 12/20/22 11:52 [id number] [facility]MedStar [facility] HospitalComment on above: Result Comment: Electronically Signed By: Leslie MCKINNEY MD.candice\Date and Time Signed: 12/20/22 10:[id number] Hospital Discharge instructions Patient Education 12/20/2022 09:48:09 [...] hard liquor (44 mL). General instructions Take ikaf-zmb-dddfvue and prescription medicines as told by your [...] are not available, use an alcohol-based hand sane rn. ?Make sure your health care providers wash [...] and water or with alcohol- based hand sane rn before and after caring for sick people. [...] bacteria common in health care settings. Take stzg-ikd-rjdlcxd and prescription medicines as told by your [...] provider. Document Revised: 05/31/2022 Document Reviewed: 05/31/2022 [employer] Patient Education 2022 [employer]. Follow Up Care 12/17/2022 23:50:19 With:Bienvenido Barroso Address: [address] [place] [phone]- Business (1) When: Unknown Comments:Call for followup appointment [facility]07-28-2023 [facility]:Result Comment: Electronically Signed By: Maycol CAGLE DO\.br\Date and Time Signed: 12/18/22 06:27 [id number] NoteSelect Medical Ohiohealth Rehabilitation HospitalComment on above:Result Comment: Electronically Signed By: Lizeth Cedeno MD\.br\Date and Time Signed: 12/02/22 12:28 [id number] Evaluation + Plan noteExtracted from: Title:Discharge Note Author:Lizeth Cedeno MD ate:12/02/22 Stable Discharge To, Anticipated II - Fdc Unit Discharged to - Home with family care Transported by, Anticipated - Family Discharge Diet(s): Other: Limit fluids to 1800 ml/day (12/02/22 12:23:00) Prescriptions aspirin 81 mg Oral EC Tab, 81 mg= 1 tab(s), Oral, Daily ergocalciferol 50,000 intl units Cap, 31184 International_Unit= 1 cap(s), Oral, q7day furosemide 40 [...] When Contact Information Joanie Jiménez [facility] [address] [place] [address]- Business (1) Additional Instructions: HFpEF Dave Dickeydict [address] [place] [address]- Business (1) Additional Instructions: Cog impariment, [employer] Bienvenido Barroso In [address] [place] [address]- Business (1) Additional Instructions: Extracted from: Title:UPDATE [...] of CAD and previous coronary interventions in [place] with no indication of recurrent CAD, would [...] able, pulm avery. -check echo Ordered: [facility] Care/Day High 50 Minutes 13085 2. Acute on chronic diastolic heart failure (I50.33: Acute on chronic diastolic (congestive) heart failure) c/w spironolactone and lasix IV 40mg qd -strict I/Os and daily weight - last echo was done 2014 with EF of 50%. will recheck this visit Ordered: [facility] Care/Day High 50 Minutes 46111 3. COPD without exacerbation (J44.9: Chronic obstructive pulmonary disease, unspecified) Ordered: [facility] Care/Day High 50 Minutes 95931 4. Weakness (R53.1: Weakness) -pt/ot Ordered: [facility] Care/Day High 50 Minutes 75209 5. Sinus bradycardia (R00.1: Bradycardia, unspecified) baseline. last EKG similar. -pt had decreased HR overnight so BB was held. -continue to monitor on tele Ordered: [facility] Care/Day High 50 Minutes 52714 6. Coronary artery disease (I25.10: Atherosclerotic heart disease of [place] coronary artery without angina pectoris) -c/w ASA Ordered: [facility] Care/Day High 50 Minutes 63773 7. Obstructive sleep apnea (G47.33: Obstructive sleep apnea (adult) (pediatric)) -CPAP qHS Ordered: [facility] Care/Day High 50 Minutes 68206 8. Pulmonary hypertension (I27.20: Pulmonary hypertension, unspecified) c/w spironolactone 50mg -lasix 40 mg iv qd -strict I/Os daily weights -check echo Ordered: [facility] Care/Day High 50 Minutes 52133 9. Abdominal pain (R10.9: Unspecified abdominal pain) resolved no complaints this morning Ordered: [facility] Care/Day High 50 Minutes 10267 10. Hypertension (I10: Essential (primary) hypertension) c/w spironolactone Ordered: [facility] Care/Day High 50 Minutes 30420 11. Diabetes (E11.9: Type 2 diabetes mellitus without complications) BGT qACHS -c/w glimepiride Ordered: [facility] Care/Day High 50 Minutes 17689 12. Hyperlipidemia (E78.5: Hyperlipidemia, unspecified) -hold statin due to elevated CK Ordered: [facility] Care/Day High 50 Minutes 34859 13. Chronic anemia (D64.9: Anemia, unspecified) monitor Ordered: [facility] Care/Day High 50 Minutes 02661 14. BPH (benign prostatic hyperplasia) (N40.0: Benign prostatic hyperplasia without lower urinary tract symptoms) c/w tamsulosin Ordered: [facility] Care/Day High 50 Minutes 24245 15. Dementia (F03.90: Unspecified dementia, unspecified severity, without behavioral disturbance, psychotic disturbance, mood disturbance, and anxiety) -c/w seroquel 25mg qHS Ordered: [facility] Care/Day High 50 Minutes 72669 16. Encounter for deep vein thrombosis (DVT) prophylaxis (Z29.9: Encounter for prophylactic measures, unspecified) Ordered: [facility] Care/Day High 50 Minutes 65017 17. Elevated CK (R74.8: Abnormal levels of other serum enzymes) -CK 1000 this morning. will monitor and hold statin - will not give fluids due to current diuresis Ordered: [facility] Care/Day High 50 Minutes 97965 COPD with acute exacerbation (J44.1: Chronic obstructive [...] artery disease (I25.10: Atherosclerotic heart disease of [place] coronary artery without angina pectoris) Continue aspirin, [...] Scheduled Provider:Donta NOONAN MD Location:Extended Care Appointment Type:[facility]07-10-2023 NoteOT [facility] six clicks score 15/24 = SNF. Patient requires assist w/ all transfers and self care at this time. Inpatient OT services to follow daily to progress w/ functional skills.[facility]07-09-2023 NotePT Evaluation completed with an AMPAC score of 16/24. Pt requires Min A for bed mobility and min/Mod A to stand. Pt was able to take two sidesteps. Will follow daily, but [facility] HospitalComment on above:Result Comment: Electronically Signed By: Maycol CAGLE DO\.br\Date and Time Signed: 11/29/22 01:33 [id number] Hospital Discharge instructions Follow Up Care 11/28/2022 17:10:04 With:Joanie Jiménez Address: [facility] [address], [address] [place] [address]- Business (1) When: Unknown Comments:HFpEF With:Dave Cruz Address: [address] [place] [phone]- Business (1) When: Unknown Comments:Cog impariment, [employer] With:Bienvenido Barroso Address: [address] [place] [address] Business (1) When: Unknown [facility]05-20-2023 [facility] HospitalComment on above:Result Comment: Electronically Signed By: Adeline COLEMAN\.br\Date and Time Signed: 10/10/22 17:53 EDT\.br\Electronically Co- Signed By: Ganesh Minaya MD\.br\Date and Time Co-Signed: 10/10/22 18:51 EDT 09-27-2022 [facility] HospitalComment on above:Result Comment: Electronically Signed By: Adeline COLEMAN\.br\Date and Time Signed: 09/26/22 21:20 EDT\.br\Electronically Co-Signed By: Ganesh Minaya MD\.br\Date and Time Co-Signed: 09/27/22 08:00 [id number] History of Present illness Narrative* Marcelino Echavarria MD - 09/07/2022 1:12 AM EDT Images from the original note were not included. EMERGENCY TRIAGE, TREAT AND TRANSPORT (ET3) DOCUMENTATION OF TELEHEALTH VISIT Date / Time: 09/06/20222146 Name: Clyde Humphrey : 1945 SSN: [id number] EMS Agency: [facility] [x] Verbal consent obtained [] [...] note No data available for this section [facility]* Diagnosis Fall, initial encounter- Primary [facility] Anxiety- Primary Anxiety state, unspecified [facility] No data available for this section [facility] note No data available for this section [facility] Summary Purpose Family History No [...] content) DATE CREATED AUTHOR 06/26/2021 [facility] dical Specialist DATE CREATED AUTHOR AUTHOR'S ORGANIZ ATION 12/05/2022 [facility] DATE CREATED AUTHOR AUTHOR'S ORGANIZ ATION 03/26/2023 [facility] DATE CREATED AUTHOR AUTHOR'S ORGANIZ ATION 05/04/2023 [facility] DATE CREATED AUTHOR AUTHOR'S ORGANIZ ATION 01/10/2024 [facility] DATE CREATED AUTHOR AUTHOR'S ORGANIZ ATION 01/18/2024 [facility] DATE CREATED AUTHOR AUTHOR'S ORGANIZ ATION 03/29/2024 [facility] Reason for Visit (unrecogniz ed section and content) Reason Comments Fall Patient Care team informatio n (unrecognized section and content) Mitigation Supervisor Relationship Specialty Start Date End Date Bienvenido Barroso MD [address] [place] [address] PCP - [facility] 07/22/22 Mitigation Supervisor Relationship Specialty Start Date End Date Bienvenido Barroso MD [address] [place] [address] PCP - [facility] 07/22/22 Mitigation Supervisor Relationship Specialty Start Date End Date Bienvenido Barroso MD [address] [place] [address] PCP - [facility] 07/22/22 FOR RECORDS PERTAINING [...] BE BASED ON THE PRIMARY CLINICAL RECORDS. [facility]. provides no warranty or guarantee of the accuracy or completeness of information in this document.
[2024-03-30 08:48] LABS: Troponin I High Sensitivity 93.4 pg/mL (4.0-76.1)
[2024-03-30] MEDS: APIXABAN 5 MG TABLET 2.5 MG PO (09:32)
[2024-03-30] MEDS: SPIRONOLACTONE 25 MG TABLET PO (09:32)
[2024-03-30] MEDS: CITALOPRAM HYDROBROMIDE 20 MG TABLET PO (09:32)
[2024-03-30] MEDS: ATORVASTATIN CALCIUM 10 MG TABLET PO (09:32)
[2024-03-30] MEDS: ASPIRIN 81 MG TAB.CHEW PO (09:32)
[2024-03-30] MEDS: ALPRAZOLAM 1 MG TABLET PO (09:32)
--- NOTE | 2024-03-30 10:04 | CM.NOTE ---
Rounds made with Dr. Simms, pt very [place] and having difficulty understanding Dr. Simms. Dr. Simms communicating with pt via erase board to let pt know reason for admission. Discussed also discharge back to [facility] today.
[2024-03-30 10:12] LABS: Alanine Aminotransferase 42 U/L (16-63); Albumin Globulin Ratio 0.8; Albumin Level 2.7 g/dL (3.4-5.0); Alkaline Phosphatase 36 U/L (46-116); Aspartate Amino Transferase 23 U/L (15-37); BUN Creatinine Ratio 22.7; Bilirubin Total 0.4 mg/dL (0.2-1.0); Calcium 8.9 mg/dL (8.5-10.1); Carbon Dioxide 34.5 mmol/L (21.0-32.0); Chloride 100 mmol/L (98-107); Estimated GFR (African America >60 (>=60 mL/min/1.73m^2); Estimated GFR (Non-African Ame 52 (>=60 mL/min/1.73m^2); Globulin 3.4 g/dL; Glucose 103 mg/dL (74-106); Potassium 3.5 mmol/L (3.5-5.1); Sodium 143 mmol/L (136-145); Total Protein 6.1 g/dL (6.4-8.2)
[2024-03-30 10:15] LABS: Basophils Percent Auto 0.5 % (0.2-2.0); Eosinophils Absolute Auto 0.2 10^3/uL (0.0-0.7); Eosinophils Percent Auto 3.8 % (0.9-7.0); Hematocrit 39.6 % (42.0-54.0); Hemoglobin 12.9 g/dL (14.0-18.0); Immature Granulocytes Pct Auto 1.6 % (0.0-0.5); Lymphocytes Absolute Auto 1.1 10^3/uL (1.2-3.8); Lymphocytes Percent Auto 18.8 % (20.5-60.0); Mean Corpuscular HGB Conc 32.6 g/dL (29.9-35.2); Mean Corpuscular Hemoglobin 30.1 pg (25.9-34.0); Mean Corpuscular Volume 92.5 fL (80.0-94.0); Mean Platelet Volume 11.2 fL (9.5-13.5); Monocytes Absolute Auto 0.6 10^3/uL (0.3-0.8); Monocytes Percent Auto 9.4 % (1.7-12.0); Neutrophils Percent Auto 65.9 % (43.0-75.0); Platelet Count 105 10^3/uL (150-450); Red Blood Count 4.28 10^6/uL (4.70-6.10); Red Cell Distribution Width 17.7 % (11.0-15.0); White Blood Count 6.1 10^3/uL (4.0-11.0)
--- NOTE | 2024-03-30 11:08 | PM.HP ---
HPI H&P: HPI History of Present Illness Chief complaint: Altered Mental Status Narrative: HPI and Hospital Course: 78 y o male with hx of dementia, who is very heard of hearing was sent from snf for hypoxia. Of note, patient did not complaints of dyspnea. On his way to ED, EMS did not notice any hypoxia or increased work of breathing. However in ED, he was noted to have mild hypoxia with pulse ox at 85%. Work up in ED revealed elevated BNP, mild elevation in troponin and lactic acidosis. He has no Chest pain and his troponin is chronically elevated. He also has chronically elevated BNP. Mild pulm edema on CXR. CTA chest performed to r/o PE did not reveal PE but reported mucus plugging and possible bronchitis. Patient was admitted overnight and was given IV lasix. At the time of my evaluation, he was fairly comfortable and had no active complaints to offer. His puls ox > 90 on RA. He appears euvolemic to me on exam. No active wheezing to suggest COPD exacerbation. He drops his SpO2 when he is sleeping. He also has underlying BENJAMIN which would explain his hypoxia during sleep. Patient is medically stable for discharge. Will order oral Doxycycline for possible acute bronchitis along with short course of prednisone. Opioid HPI Opioid Management Most Recent Pain and Opioid Data: Last Pain Scale 6 01/04/24 10:19 01/04/24 Last Pain Intensity 3 01/04/24 10:19 01/04/24 Last Pain Assessment 03/30/24 11:28 Last ORT Total Score 0 03/30/24 05:28 03/30/24 Last ORT Risk Category Low Risk 03/30/24 05:28 03/30/24 Review of Systems ROS Status of ROS unobtainable due to mental status [facility] Medical History (Updated 03/30/24 @ 11:15 by Shaikh Mendez MD) Afib ?I48.91 - Unspecified atrial fibrillation (ICD-10) CKD stage 3a, GFR 45-59 ml/min ?N18.31 - Chronic kidney disease, stage 3a (ICD-10) Acute on chronic hypoxic respiratory failure ?J96.21 - Acute and chronic respiratory failure with hypoxia (ICD-10) Elevated brain natriuretic peptide (BNP) level ?R79.89 - Other specified abnormal findings of blood chemistry (ICD-10) Elevated troponin ?R79.89 - Other specified abnormal findings of blood chemistry (ICD-10) Diabetes mellitus ?E11.9 - Type 2 diabetes mellitus without complications (ICD-10) Acute renal failure ?N17.9 - Acute kidney failure, unspecified (ICD-10) Hyperkalemia ?E87.5 - Hyperkalemia (ICD-10) Hypernatremia ?E87.0 - Hyperosmolality and hypernatremia (ICD-10) Iron deficiency anemia ?D50.9 - Iron deficiency anemia, unspecified (ICD-10) Acute respiratory failure with hypercapnia ?J96.02 - Acute respiratory failure with hypercapnia (ICD-10) Respiratory failure ?J96.90 - Respiratory failure, unspecified, unspecified whether with hypoxia or hypercapnia (ICD-10) Third degree heart block ?I44.2 - Atrioventricular block, complete (ICD-10) Difficulty walking ?R26.2 - Difficulty in walking, not elsewhere classified (ICD-10) Pulmonary HTN ?I27.20 - Pulmonary hypertension, unspecified (ICD-10) Cognitive communication deficit ?R41.841 - Cognitive communication deficit (ICD-10) Agitation due to dementia ?F03.911 - Unspecified dementia, unspecified severity, with agitation (ICD-10) Anxiety ?F41.9 - Anxiety disorder, unspecified (ICD-10) BENJAMIN (obstructive sleep apnea) ?G47.33 - Obstructive sleep apnea (adult) (pediatric) (ICD-10) HLD (hyperlipidemia) ?E78.5 - Hyperlipidemia, unspecified (ICD-10) BPH (benign prostatic hyperplasia) ?N40.0 - Benign prostatic hyperplasia without lower urinary tract symptoms (ICD-10) Alzheimer dementia ?G30.9 - Alzheimer's disease, unspecified (ICD-10) ?F02.80 - Dementia in other diseases classified elsewhere, unspecified severity, without behavioral disturbance, psychotic disturbance, mood disturbance, and anxiety (ICD-10) Recurrent falls ?R29.6 - Repeated falls (ICD-10) Viral pneumonia ?J12.9 - Viral pneumonia, unspecified (ICD-10) Dysphagia ?R13.10 - Dysphagia, unspecified (ICD-10) Diverticulitis ?K57.92 - Diverticulitis of intestine, part unspecified, without perforation or abscess without bleeding (ICD-10) Seasonal allergic rhinitis ?J30.2 - Other seasonal allergic rhinitis (ICD-10) CAD (coronary artery disease) ?I25.10 - Atherosclerotic heart disease of chilkoot coronary artery without angina pectoris (ICD-10) PVD (peripheral vascular disease) ?I73.9 - Peripheral vascular disease, unspecified (ICD-10) Chronic diastolic heart failure ?I50.32 - Chronic diastolic (congestive) heart failure (ICD-10) Pacemaker ?Z95.0 - Presence of cardiac pacemaker (ICD-10) Laceration of nose ?S01.21XA - Laceration without foreign body of nose, initial encounter (ICD-10) New onset seizure ?R56.9 - Unspecified convulsions (ICD-10) Dementia with behavioral disturbance ?F03.918 - Unspecified dementia, unspecified severity, with other behavioral disturbance (ICD-10) Behavioral problem Sleep apnea ?G47.30 - Sleep apnea, unspecified (ICD-10) COPD (chronic obstructive pulmonary disease) ?J44.9 - Chronic obstructive pulmonary disease, unspecified (ICD-10) Surgical History (Updated 03/07/24 @ 23:21 by Ky Galindo) History of permanent cardiac pacemaker placement ?Z95.0 - Presence of cardiac pacemaker (ICD-10) H/O heart artery stent ?Z95.5 - Presence of coronary angioplasty implant and graft (ICD-10) Family History (Updated 01/03/24 @ 16:02 by Pia Segura LPN) Mother Family history of CHF (congestive heart failure) Family history of COPD (chronic obstructive pulmonary disease) Father Family history of CHF (congestive heart failure) Brother Family history of CHF (congestive heart failure) Family history of diabetes mellitus Family history of myocardial infarction Social History (Updated 01/03/24 @ 16:04 by Pia Segura LPN) Within the past year, how often did you have a drink containing alcohol: never Within the past year, how many standard drinks containing alcohol did you have on a typical day: 1 or 2 Within the past year, how often did you have six or more drinks on one occasion: never Total score: 0 Score interpretation: A score less than 4 is consistent with normal alcohol consumption. 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 Known occupational exposures/hazards: No Highest level of school completed/degree received: don't know Do you want help with school or training: No Are you now , , , , never or living with a partner: In a typical week, how many times do you talk on the telephone with family, friends, or neighbors: once per week How often do you get together with friends or relatives: once per week How often do you attend restorationist or cheondoism services: 4 or more times per year Do you belong to any clubs or organizations such as restorationist groups unions, [employer] or athletic groups, or school groups: no Total score: 2 Score interpretation: A score of greater than or equal to 2 indicates the lowest level of social isolation. Little interest or pleasure in doing things: not at all Feeling down, depressed, or hopeless: not at all Feel stressed/tense/nervous/anxious/difficulty sleeping: not at all Due to disability, difficulty making decisions: No Do you think of yourself as: straight/heterosexual Gender Identity: male Meds Home Medications and Allergies Home Medications ?Medication ?Instructions ?Recorded ?Confirmed ?Type citalopram 20 mg tablet (Celexa) 20 mg PO DAILY 01/31/23 03/29/24 History furosemide 40 mg tablet 40 mg PO BID 01/31/23 03/29/24 History tamsulosin 0.4 mg capsule (Flomax) 0.8 mg PO .QHS 01/31/23 03/29/24 History albuterol sulfate 2.5 mg/3 mL 2.5 mg inhalation Q6H PRN 01/03/24 03/29/24 History (0.083 %) solution for nebulization shortness of breath or wheezing cetirizine 10 mg tablet (All Day 10 mg PO DAILY PRN allergy symptoms 01/03/24 03/29/24 History Allergy (cetirizine)) cholecalciferol (vitamin D3) 50 50 mcg PO DAILY 01/03/24 03/29/24 History mcg (2,000 unit) tablet nystatin 100,000 unit/gram topical 1 applic topical TID 01/03/24 03/29/24 History powder spironolactone 25 mg tablet 25 mg PO DAILY 01/03/24 03/29/24 History acetaminophen 500 mg tablet 500 mg PO Q6H PRN pain 03/07/24 03/29/24 History aspirin 81 mg chewable tablet 81 mg PO DAILY 03/07/24 03/29/24 History cyanocobalamin (vitamin B-12) 1,000 mcg PO DAILY 03/07/24 03/29/24 History 1,000 mcg tablet (Vitamin B-12) divalproex 500 mg tablet,delayed 500 mg PO TID 03/07/24 03/29/24 History release fluticasone furoate 100 1 inh inhalation .QHS 03/07/24 03/30/24 History mcg-vilanterol 25 mcg/dose inhalation powder (Breo Ellipta) ipratropium 0.5 mg-albuterol 3 mg 3 ml inhalation Q6H 03/07/24 03/29/24 History (2.5 mg base)/3 mL nebulization soln lorazepam 0.5 mg tablet 0.5 mg PO BID PRN anxiety 03/07/24 03/29/24 History lovastatin 40 mg tablet 40 mg PO .QHS 03/07/24 03/29/24 History metformin 500 mg tablet 500 mg PO BID 03/07/24 03/29/24 History potassium chloride 20 mEq 20 meq PO DAILY 03/07/24 03/29/24 History tablet,extended release(part/cryst) albuterol sulfate 2.5 mg/3 mL 2.5 mg inhalation Q6H PRN 03/29/24 03/29/24 History (0.083 %) solution for nebulization shortness of breath or wheezing alprazolam 0.5 mg tablet 1 mg PO DAILY 03/29/24 03/29/24 History apixaban 2.5 mg tablet (Eliquis) 2.5 mg PO BID 03/29/24 03/29/24 History fluticasone furoate 100 1 inh inhalation DAILY 03/29/24 03/29/24 History mcg-vilanterol 25 mcg/dose inhalation powder (Breo Ellipta) Allergies Allergy/AdvReac Type Severity Reaction Status Date / Time No Known Drug Allergies Allergy Verified 01/08/24 19:13 Exam Constitutional Vital Signs, click to edit/add: Last Vital Signs Temp 97.5 F L 03/30/24 07:30 Pulse 75 03/30/24 10:00 Resp 16 03/30/24 07:30 BP 123/74 03/30/24 07:30 Pulse Ox 93 L 03/30/24 07:30 O2 Del Method Room Air 03/30/24 07:30 O2 Flow Rate 2 03/30/24 05:29 Documenting provider has reviewed patient's vital signs: yes Common normals: no apparent distress and oriented x3 HENMT Common normals: normocephalic and head/scalp atraumatic Head and scalp: normocephalic and atraumatic Eye Common normals: conjunctivae normal and no scleral icterus Conjunctiva: conjunctiva(e) normal Respiratory Common normals: normal respiratory effort and no use of accessory muscles Effort & inspection: able to speak in complete sentences Other: No respiratory distress, no active wheezing. Cardio Common normals: regular rate, regular rhythm, S1 normal heart sound and S2 normal heart sound Rate: regular rate Rhythm: regular rhythm Heart sounds: S1 normal and S2 normal GI Common normals: Normal to inspection, nondistended, normoactive bowel sounds present, soft to palpation, non-tender and no hepatosplenomegaly Palpation: soft and no hepatosplenomegaly Extremity Common normals: no clubbing, cyanosis or edema Neuro Common normals: moves all extremities, no focal motor deficits and no sensory deficits noted Psych Psychiatry clinicians, please identify where your Mental Status Exam is documented: Mental Status Exam documented in the separate MSE Common normals: mental status grossly normal, thought process normal, denies hallucinations, denies homicidal ideation and denies suicidal ideation Thought process: normal thought process Results Labs Labs: Short CBC 03/29/24 03/30/24 Range/Units 20:19 08:02 WBC 6.5 6.1 (4.0-11.0) 10^3/uL Hgb 13.6 L 12.9 L (14.0-18.0) g/dL Hct 41.5 L 39.6 L (42.0-54.0) % Plt Count 108 L 105 L (150-450) 10^3/uL BMP 03/29/24 03/30/24 20:19 08:02 Sodium 144 143 Potassium 4.9 3.5 Chloride 101 100 Carbon Dioxide 37.3 H 34.5 H BUN 38.0 H 30.0 H Creatinine 1.64 H 1.32 H Glucose 128 H 103 Calcium 10.1 8.9 Liver Function 03/29/24 03/30/24 Range/Units 20:19 08:02 Total Bilirubin 0.3 0.4 (0.2-1.0) mg/dL AST 23 23 (15-37) U/L ALT 41 42 (16-63) U/L Alkaline Phosphatase 43 L 36 L (46-116) U/L Albumin 2.9 L 2.7 L (3.4-5.0) g/dL Urine 03/29/24 Range/Units 20:51 Urine Color Lt. yellow (YELLOW) Urine Clarity Clear (CLEAR) Urine pH 6.5 (5.0-9.0) Ur Specific Weaver 1.010 (1.005-1.025) Urine Protein Negative (NEG/TRACE) mg/dL Urine Glucose (UA) Negative (NEGATIVE) mg/dL Assessment and Plan Assessment and Plan (1) Acute hypoxic respiratory failure: Assessment and Plan: Resolved. likely due to underlying COPD/BENJAMIN and acute on chronic congestive HF. Stable for discharge. (2) Acute on chronic combined systolic (congestive) and diastolic (congestive) heart failure: Assessment and Plan: Treated with IV lasix. Appears euvolemic on exam. Stable for discharge. (3) Acute bronchitis: Assessment and Plan: Possible bronchitis, mucus plugging on CTA. Added mucinex, doxycycline for 7 days along with short course of prednisone. Qualifiers: Bronchitis organism: unspecified organism Qualified Code(s): J20.9 - Acute bronchitis, unspecified (4) Elevated troponin: Assessment and Plan: Chronically elevated, asymptomatic. Very unlikely that this is due to ACS. (5) Alzheimer dementia: Assessment and Plan: shelter snf resident. Qualifiers: Alzheimer's disease onset: unspecified onset Dementia severity: moderate Dementia behavioral or psychological symptom: with other behavioral disturbance Qualified Code(s): G30.9 - Alzheimer's disease, unspecified; F02.B18 - Dementia in other diseases classified elsewhere, moderate, with other behavioral disturbance (6) CAD (coronary artery disease): Assessment and Plan: No CP, SOB. C/w home medications. Qualifiers: Coronary Disease-Associated Artery/Lesion type: chilkoot artery [place] vs. transplanted heart: chilkoot heart Associated angina: without angina Qualified Code(s): I25.10 - Atherosclerotic heart disease of chilkoot coronary artery without angina pectoris (7) Afib: Assessment and Plan: s/p PPM. On Eliquis for AC. Qualifiers: Atrial fibrillation type: unspecified Qualified Code(s): I48.91 - Unspecified atrial fibrillation (8) COPD (chronic obstructive pulmonary disease): Assessment and Plan: No active wheezing/bronchospasm noted. C/w home medications. Qualifiers: COPD type: unspecified COPD Qualified Code(s): J44.9 - Chronic obstructive pulmonary disease, unspecified (9) CKD stage 3a, GFR 45-59 ml/min: Assessment and Plan: Renal fx at baseline. (10) Diabetes mellitus: Assessment and Plan: C/w home medications. Qualifiers: Diabetes mellitus type: type 2 Diabetes mellitus buttermaker helper insulin use: without [facility] use Diabetes mellitus complication status: without complication Qualified Code(s): E11.9 - Type 2 diabetes mellitus without complications (11) HLD (hyperlipidemia): Assessment and Plan: C/w statin Qualifiers: Hyperlipidemia type: unspecified Qualified Code(s): E78.5 - Hyperlipidemia, unspecified (12) Sleep apnea: Assessment and Plan: Will benefit from nocturnal Oxygen use or when he is sleeping. Qualifiers: Sleep apnea type: obstructive Qualified Code(s): G47.33 - Obstructive sleep apnea (adult) (pediatric)
[2024-03-30] MEDS: BUDESONIDE 0.5 MG/2 ML AMPULE NEB IH (11:11)
--- NOTE | 2024-03-30 11:37 | SWNOTE1 ---
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 Plan is for him to discharge back to [facility].
[2024-03-30 11:46] LABS: Influenza Virus A Antigen Negative; Influenza Virus B Antigen Negative; Internal Control Within Normal Limits; SARS-CoV-2 Ag NEGATIVE (NEGATIVE)
[2024-03-30 12:06] LABS: Glucometer 252 mg/dL (74-106)
--- NOTE | 2024-03-30 13:02 | SWNOTE1 ---
Pt is discharging back to [facility]. MARGARET set up [facility] for 5:45pm. MARGARET notifed nurse and [facility] of time. MARGARET faxed over dc med rec, ED note, H&P, labs, vitals, and nursing notes to [facility].
[2024-03-30] MEDS: DOXYCYCLINE MONOHYDRATE 100 MG CAPSULE PO (13:07)
[2024-03-30] MEDS: GUAIFENESIN 600 MG TAB.ER.12H PO (13:07)
[2024-03-30] MEDS: DIVALPROEX SODIUM 500 MG TABLET.DR PO (13:07)
--- NOTE | 2024-03-30 13:50 | SWNOTE1 ---
SW called daughter, Kasey Mary, she did not answer and SW could not leave message. Pt has Dementia so not able to review GOVE[employer] form with pt or daughter since she did not answer. SW signed form that it was not able to be reviewed at this time.
[2024-03-30 16:34] LABS: Glucometer 127 mg/dL (74-106)
[2024-03-30] MEDS: IPRATROPIUM/ALBUTEROL SULFATE 3 ML AMPUL.NEB IH (16:42)
== END 2024-03-30 18:07 ==
LOC: ER 03-30 04:18 → MS 03-30 06:16
PROVIDERS: Admitting Provider Internal Medicine; Emergency Provider Emergency Medicine; PCP Family Medicine; Visit Provider Internal Medicine
DX: I50.43 Acute on chronic combined systolic (congestive) and diastolic (congestive) heart failure (principal); J96.01 Acute respiratory failure with hypoxia; J20.9 Acute bronchitis, unspecified; R79.89 Other specified abnormal findings of blood chemistry; G30.9 Alzheimer's disease, unspecified; F02.80 Dementia in other diseases classified elsewhere, unspecified severity, without behavioral disturbance, psychotic disturbance, mood disturbance, and anxiety; I25.10 Atherosclerotic heart disease of native coronary artery without angina pectoris; I48.91 Unspecified atrial fibrillation; J44.0 Chronic obstructive pulmonary disease with (acute) lower respiratory infection; N18.31 Chronic kidney disease, stage 3a; E11.22 Type 2 diabetes mellitus with diabetic chronic kidney disease; E78.5 Hyperlipidemia, unspecified; Z20.822 Contact with and (suspected) exposure to COVID-19; G47.33 Obstructive sleep apnea (adult) (pediatric); Z87.891 Personal history of nicotine dependence; Z79.01 Long term (current) use of anticoagulants; Z79.899 Other long term (current) drug therapy; Z79.84 Long term (current) use of oral hypoglycemic drugs
CPT/HCPCS: 36415; 70450; 71045; 71275; 80053; 81003; 82948; 83605; 83735; 83880; 84484; 85025; 85610; 85730; 87502; 87804; 87811; 93005; 94640; 94761; 96374; 96376; 97161; 99285; G0378; J1940; Q9966

== ENCOUNTER 2024-04-07 20:11 | Emergency (ER) | payer OTHER, MEDICAID, SELFPAY ==
[2024-04-07 20:12] VITALS: BP 172/86; PULSE 67; TEMP 36.8; O2SAT 95; BMI 26.6
--- NOTE | 2024-04-07 20:13 | CT_ITS ---
The [address] [address] Patient Name: CLYDE MARINA MRN: [facility]:[id number] date: 1945 Sex: M Assigned Patient Location: ED.MAIN Current Patient Location: Accession/Order Number: [id number] Exam Date: 04/07/2024 20:23 Report Date: 04/07/2024 22:38 At the request of: YESENIA WHITE Procedure: CT cervical spine wo con EXAM: CT cervical spine wo con HISTORY: Fell, hit left eyebrow area, dementia COMPARISON: CT cervical spine, 01/03/2024. TECHNIQUE: Nonenhanced CT imaging of the cervical spine was performed with sagittal and coronal reconstructions. Dose reduction techniques were achieved by using automated exposure control and/or adjustment of mA and/or kV according to patient size and/or use of iterative reconstruction technique. FINDINGS: Multilevel motion artifact degrades the exam. No acute osseous or articular abnormality is seen. The cervical vertebral bodies are normal in height and alignment. There is advanced degenerative disc disease at C3-C7. Skull base alignment is normal. The articular facets are normally aligned. On the right, there is moderate neural foraminal stenosis at C4-C6. On the left, there is mild neural foraminal stenosis at C4-C5. Mild spinal canal stenosis is seen at C4-C5 and C5-C6. The imaged paranasal sinuses and lung apices are clear. Bilateral carotid arterial calcifications are noted. The thyroid gland appears unremarkable. CT/CT cervical spine wo con IMPRESSION: No acute cervical spine findings. Chronic changes are described above. Electronically authenticated by: CHUCKIE BARNES Date: 04/07/2024 22:38
--- NOTE | 2024-04-07 20:13 | CT_ITS ---
The [address] [address] Patient Name: CLYDE MARINA MRN: [facility]:[id number] date: 1945 Sex: M Assigned Patient Location: ED.MAIN Current Patient Location: ED.MAIN Accession/Order Number: [id number] Exam Date: 04/07/2024 20:23 Report Date: 04/07/2024 20:56 At the request of: YESENIA WHITE Procedure: CT head/brain wo con NONCONTRAST CT SCAN OF THE HEAD HISTORY: Headache. TECHNIQUE: Multiple axial images are taken from the level the vertex down to the base of the skull without the use of IV contrast. Images were then reconstructed in the sagittal and coronal planes. This exam was performed according to our departmental dose-optimization program which includes use of Automated Exposure Control, adjustment of the mA and/or kV according to patient size and/or use of iterative reconstruction technique. COMPARISON: 03/29/2024 FINDINGS: Brain Parenchyma: There is global, diffuse atrophy with periventricular decreased white matter attenuation. No intracranial mass. No intracranial hemorrhage. Posterior fossa: Normal. Midline shift: None Extra-axial fluid collection: None Ventricles: Normal. Mastoid air cells: Normal. Sinuses: Normal. Cranium: No depressed skull fracture. Soft tissues: There is soft tissue edema overlying the left forehead. Orbits: Orbits demonstrate postoperative changes from prior cataract resection with prosthetic lens implant. 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 CT/CT head/brain wo con IMPRESSION: 1. Chronic small vessel ischemic change. 2. 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 3. In the setting of hyperacute stroke, findings may not be readily visualized on a noncontrast CT. Please correlate clinically. If there is any clinical concern for hyperacute stroke, MRI with diffusion-weighted imaging would help better delineate. Electronically authenticated by: ALVIN CABRAL Date: 04/07/2024 20:56
--- NOTE | 2024-04-07 20:15 | ED.FALL1 ---
HPI HPI - Fall General Chief Complaint: Fall Stated Complaint: FALL Time Seen by Provider: 04/07/24 20:12 Source: patient Mode of arrival: ambulance Limitations: no limitations History of Present Illness HPI Narrative: 78-year-old male presents after an injury from falling. He apparently fell forward and hit his left eyebrow area. He is nonverbal and has dementia and is unable to give any history at all. History is obtained from the paramedics. He was noted to have some swelling in the left eyebrow area and no other apparent injury tonight. No further history is obtainable Related Data Home Medications ?Medication ?Instructions ?Recorded ?Confirmed citalopram 20 mg tablet (Celexa) 20 mg PO DAILY 01/31/23 03/29/24 furosemide 40 mg tablet 40 mg PO BID 01/31/23 03/29/24 tamsulosin 0.4 mg capsule (Flomax) 0.8 mg PO .QHS 01/31/23 03/29/24 albuterol sulfate 2.5 mg/3 mL 2.5 mg inhalation Q6H PRN 01/03/24 03/29/24 (0.083 %) solution for nebulization shortness of breath or wheezing cetirizine 10 mg tablet (All Day 10 mg PO DAILY PRN allergy symptoms 01/03/24 03/29/24 Allergy (cetirizine)) cholecalciferol (vitamin D3) 50 50 mcg PO DAILY 01/03/24 03/29/24 mcg (2,000 unit) tablet nystatin 100,000 unit/gram topical 1 applic topical TID 01/03/24 03/29/24 powder spironolactone 25 mg tablet 25 mg PO DAILY 01/03/24 03/29/24 acetaminophen 500 mg tablet 500 mg PO Q6H PRN pain 03/07/24 03/29/24 aspirin 81 mg chewable tablet 81 mg PO DAILY 03/07/24 03/29/24 cyanocobalamin (vitamin B-12) 1,000 mcg PO DAILY 03/07/24 03/29/24 1,000 mcg tablet (Vitamin B-12) divalproex 500 mg tablet,delayed 500 mg PO TID 03/07/24 03/29/24 release fluticasone furoate 100 1 inh inhalation .QHS 03/07/24 03/30/24 mcg-vilanterol 25 mcg/dose inhalation powder (Breo Ellipta) ipratropium 0.5 mg-albuterol 3 mg 3 ml inhalation Q6H 03/07/24 03/29/24 (2.5 mg base)/3 mL nebulization soln lorazepam 0.5 mg tablet 0.5 mg PO BID PRN anxiety 03/07/24 03/29/24 lovastatin 40 mg tablet 40 mg PO .QHS 03/07/24 03/29/24 metformin 500 mg tablet 500 mg PO BID 03/07/24 03/29/24 potassium chloride 20 mEq 20 meq PO DAILY 03/07/24 03/29/24 tablet,extended release(part/cryst) albuterol sulfate 2.5 mg/3 mL 2.5 mg inhalation Q6H PRN 03/29/24 03/29/24 (0.083 %) solution for nebulization shortness of breath or wheezing alprazolam 0.5 mg tablet 1 mg PO DAILY 03/29/24 03/29/24 apixaban 2.5 mg tablet (Eliquis) 2.5 mg PO BID 03/29/24 03/29/24 fluticasone furoate 100 1 inh inhalation DAILY 03/29/24 03/29/24 mcg-vilanterol 25 mcg/dose inhalation powder (Breo Ellipta) Previous Rx's ?Medication ?Instructions ?Recorded doxycycline hyclate 100 mg tablet 100 mg PO BID 7 days #14 tabs 03/30/24 guaifenesin 600 mg tablet, 600 mg PO BID #20 tabs 03/30/24 extended release 12 hr (Mucinex) prednisone 20 mg tablet 20 mg PO BID #10 tabs 03/30/24 Allergies Allergy/AdvReac Type Severity Reaction Status Date / Time No Known Drug Allergies Allergy Verified 04/07/24 20:15 Opioid HPI Opioid Management Most Recent Pain and Opioid Data: Last Pain Scale 6 01/04/24 10:19 01/04/24 Last Pain Intensity 3 01/04/24 10:19 01/04/24 Last ORT Total Score 0 03/30/24 05:28 03/30/24 Last ORT Risk Category Low Risk 03/30/24 05:28 03/30/24 Review of Systems ROS Narrative Not obtainable, dementia [facility] Medical History (Updated 04/07/24 @ 22:46 by Stephen Barlow MD) Acute bronchitis ?J20.9 - Acute bronchitis, unspecified (ICD-10) CHF (congestive heart failure) ?I50.9 - Heart failure, unspecified (ICD-10) Elevated troponin ?R79.89 - Other specified abnormal findings of blood chemistry (ICD-10) Elevated brain natriuretic peptide (BNP) level ?R79.89 - Other specified abnormal findings of blood chemistry (ICD-10) Afib ?I48.91 - Unspecified atrial fibrillation (ICD-10) CKD stage 3a, GFR 45-59 ml/min ?N18.31 - Chronic kidney disease, stage 3a (ICD-10) Acute on chronic hypoxic respiratory failure ?J96.21 - Acute and chronic respiratory failure with hypoxia (ICD-10) Elevated brain natriuretic peptide (BNP) level ?R79.89 - Other specified abnormal findings of blood chemistry (ICD-10) Elevated troponin ?R79.89 - Other specified abnormal findings of blood chemistry (ICD-10) Diabetes mellitus ?E11.9 - Type 2 diabetes mellitus without complications (ICD-10) Acute renal failure ?N17.9 - Acute kidney failure, unspecified (ICD-10) Hyperkalemia ?E87.5 - Hyperkalemia (ICD-10) Hypernatremia ?E87.0 - Hyperosmolality and hypernatremia (ICD-10) Iron deficiency anemia ?D50.9 - Iron deficiency anemia, unspecified (ICD-10) Acute respiratory failure with hypercapnia ?J96.02 - Acute respiratory failure with hypercapnia (ICD-10) Respiratory failure ?J96.90 - Respiratory failure, unspecified, unspecified whether with hypoxia or hypercapnia (ICD-10) Third degree heart block ?I44.2 - Atrioventricular block, complete (ICD-10) Difficulty walking ?R26.2 - Difficulty in walking, not elsewhere classified (ICD-10) Pulmonary HTN ?I27.20 - Pulmonary hypertension, unspecified (ICD-10) Cognitive communication deficit ?R41.841 - Cognitive communication deficit (ICD-10) Agitation due to dementia ?F03.911 - Unspecified dementia, unspecified severity, with agitation (ICD-10) Anxiety ?F41.9 - Anxiety disorder, unspecified (ICD-10) BENJAMIN (obstructive sleep apnea) ?G47.33 - Obstructive sleep apnea (adult) (pediatric) (ICD-10) HLD (hyperlipidemia) ?E78.5 - Hyperlipidemia, unspecified (ICD-10) BPH (benign prostatic hyperplasia) ?N40.0 - Benign prostatic hyperplasia without lower urinary tract symptoms (ICD-10) Alzheimer dementia ?G30.9 - Alzheimer's disease, unspecified (ICD-10) ?F02.80 - Dementia in other diseases classified elsewhere, unspecified severity, without behavioral disturbance, psychotic disturbance, mood disturbance, and anxiety (ICD-10) Recurrent falls ?R29.6 - Repeated falls (ICD-10) Viral pneumonia ?J12.9 - Viral pneumonia, unspecified (ICD-10) Dysphagia ?R13.10 - Dysphagia, unspecified (ICD-10) Diverticulitis ?K57.92 - Diverticulitis of intestine, part unspecified, without perforation or abscess without bleeding (ICD-10) Seasonal allergic rhinitis ?J30.2 - Other seasonal allergic rhinitis (ICD-10) CAD (coronary artery disease) ?I25.10 - Atherosclerotic heart disease of [place] coronary artery without angina pectoris (ICD-10) PVD (peripheral vascular disease) ?I73.9 - Peripheral vascular disease, unspecified (ICD-10) Chronic diastolic heart failure ?I50.32 - Chronic diastolic (congestive) heart failure (ICD-10) Pacemaker ?Z95.0 - Presence of cardiac pacemaker (ICD-10) Laceration of nose ?S01.21XA - Laceration without foreign body of nose, initial encounter (ICD-10) New onset seizure ?R56.9 - Unspecified convulsions (ICD-10) Dementia with behavioral disturbance ?F03.918 - Unspecified dementia, unspecified severity, with other behavioral disturbance (ICD-10) Behavioral problem Sleep apnea ?G47.30 - Sleep apnea, unspecified (ICD-10) COPD (chronic obstructive pulmonary disease) ?J44.9 - Chronic obstructive pulmonary disease, unspecified (ICD-10) Surgical History (Updated 03/07/24 @ 23:21 by Ky Galindo) History of permanent cardiac pacemaker placement ?Z95.0 - Presence of cardiac pacemaker (ICD-10) H/O heart artery stent ?Z95.5 - Presence of coronary angioplasty implant and graft (ICD-10) Family History (Updated 01/03/24 @ 16:02 by Pia Segura LPN) Mother Family history of CHF (congestive heart failure) Family history of COPD (chronic obstructive pulmonary disease) Father Family history of CHF (congestive heart failure) Brother Family history of CHF (congestive heart failure) Family history of diabetes mellitus Family history of myocardial infarction Social History (Updated 01/03/24 @ 16:04 by Pia Segura LPN) Within the past year, how often did you have a drink containing alcohol: never Within the past year, how many standard drinks containing alcohol did you have on a typical day: 1 or 2 Within the past year, how often did you have six or more drinks on one occasion: never Total score: 0 Score interpretation: A score less than 4 is consistent with normal alcohol consumption. 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 Known occupational exposures/hazards: No Highest level of school completed/degree received: don't know Do you want help with school or training: No Are you now , , , , never or living with a partner: In a typical week, how many times do you talk on the telephone with family, friends, or neighbors: once per week How often do you get together with friends or relatives: once per week How often do you attend anabaptism or jewish services: 4 or more times per year Do you belong to any clubs or organizations such as anabaptism groups unions, fraternal or athletic groups, or school groups: no Total score: 2 Score interpretation: A score of greater than or equal to 2 indicates the lowest level of social isolation. Little interest or pleasure in doing things: not at all Feeling down, depressed, or hopeless: not at all Feel stressed/tense/nervous/anxious/difficulty sleeping: not at all Due to disability, difficulty making decisions: No Do you think of yourself as: straight/heterosexual Gender Identity: male Exam Narrative Exam Narrative: Nurses note and vital signs reviewed and patient is not hypoxic. General: The patient appears in no apparent distress. Skin: Warm, dry, no pallor noted. There is no rash noted. Head: Normocephalic, hematoma at the left eyebrow area. No laceration present Eye: Normal conjunctiva, no drainage Ears, Nose, Mouth, and Throat: oral mucosa is moist. Nares patent. Cardiovascular: Regular Rate and Rhythm Respiratory: Patient is in no distress, no accessory muscle use, lungs are clear to auscultation, no wheezing, rales or rhonchi GI: Soft and nontender Musculoskeletal: All joints appear to have full range of motion including the hips. There is no deformity. Healing skin tear present on the dorsum of his right hand with Steri-Strips in place. Neurological: Awake and looking around the room. Nonverbal for me. Psychiatric: Cannot be assessed Constitutional Vital Signs, click to edit/add: Last Vital Signs Temp 98.2 F 04/07/24 20:12 Pulse 67 04/07/24 20:12 Resp 18 04/07/24 20:12 BP 172/86 H 04/07/24 20:12 Pulse Ox 95 04/07/24 20:12 O2 Del Method Room Air 04/07/24 20:12 Course Vital Signs Vital signs: Vital Signs Temperature 98.2 F 04/07/24 20:12 Pulse Rate 67 04/07/24 20:12 Respiratory Rate 18 04/07/24 20:12 Blood Pressure 172/86 H 04/07/24 20:12 Pulse Oximetry 95 04/07/24 20:12 Oxygen Delivery Method Room Air 04/07/24 20:12 Temperature 98.2 F 04/07/24 20:12 Pulse Rate 67 04/07/24 20:12 Respiratory Rate 18 04/07/24 20:12 Blood Pressure 172/86 H 04/07/24 20:12 Pulse Oximetry 95 04/07/24 20:12 Oxygen Delivery Method Room Air 04/07/24 20:12 MDM - Fall MDM Narrative Medical decision making narrative: CT of head and C-spine are negative and he is able to be released back to [facility]. Differential Diagnosis Differential diagnosis: Likely other (Fall, hematoma, intracranial hemorrhage) Imaging Data CT scan - head: Radiologist's impression: ITS Impressions Cervical Spine CT 04/07/24 20:13 IMPRESSION: No acute cervical spine findings. Chronic changes are described above. Electronically authenticated by: CHUCKIE BARNES Date: 04/07/2024 22:[address] 04/07/24 20:13 IMPRESSION: 1. Chronic small vessel ischemic change. 2. 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 3. In the setting of hyperacute stroke, findings may not be readily visualized on a noncontrast CT. Please correlate clinically. If there is any clinical concern for hyperacute stroke, MRI with diffusion-weighted imaging would help better delineate. Electronically authenticated by: ALVIN CABRAL Date: 04/07/2024 20:56 Discharge Plan Discharge Chief Complaint: Fall Clinical Impression: Fall, Traumatic hematoma of forehead Patient Disposition: Home, Self-Care Time of Disposition Decision: 22:46 Condition: Good Mode of Transportation: Private Vehicle Prescriptions / Home Meds: No Action albuterol sulfate 2.5 mg /3 mL (0.083 %) solution for nebulization 2.5 mg inhalation Q6H PRN (Reason: shortness of breath or wheezing) cetirizine [All Day Allergy (cetirizine)] 10 mg tablet 10 mg PO DAILY PRN (Reason: allergy symptoms) cholecalciferol (vitamin D3) 50 mcg (2,000 unit) tablet 50 mcg PO DAILY nystatin 100,000 unit/gram powder 1 applic TOPICAL TID spironolactone 25 mg tablet 25 mg PO DAILY fluticasone furoate-vilanterol [Breo Ellipta] 100-25 mcg/dose blister with device 1 inh inhalation DAILY Eliquis 2.5 mg tablet 2.5 mg PO BID alprazolam 0.5 mg tablet 1 mg PO DAILY albuterol sulfate 2.5 mg /3 mL (0.083 %) solution for nebulization 2.5 mg inhalation Q6H PRN (Reason: shortness of breath or wheezing) prednisone 20 mg tablet 20 mg PO BID Qty: 10 0RF guaifenesin [Mucinex] 600 mg tablet extended release 12hr 600 mg PO BID Qty: 20 0RF doxycycline hyclate 100 mg tablet 100 mg PO BID 7 Days Qty: 14 0RF citalopram [Celexa] 20 mg tablet 20 mg PO DAILY furosemide 40 mg tablet 40 mg PO BID tamsulosin [Flomax] 0.4 mg capsule 0.8 mg PO .QHS fluticasone furoate-vilanterol [Breo Ellipta] 100-25 mcg/dose blister with device 1 inh INHALATION .QHS potassium chloride 20 mEq tablet,ER particles/crystals 20 meq PO DAILY lorazepam 0.5 mg tablet 0.5 mg PO BID PRN (Reason: anxiety) acetaminophen 500 mg tablet 500 mg PO Q6H PRN (Reason: pain) aspirin 81 mg tablet,chewable 81 mg PO DAILY cyanocobalamin (vitamin B-12) [Vitamin B-12] 1,000 mcg tablet 1,000 mcg PO DAILY divalproex 500 mg tablet,delayed release (DR/EC) 500 mg PO TID ipratropium-albuterol 0.5 mg-3 mg(2.5 mg base)/3 mL solution for nebulization 3 ml INHALATION Q6H lovastatin 40 mg tablet 40 mg PO .QHS metformin 500 mg tablet 500 mg PO BID Print Language: [place]ese Instructions: Fall Prevention for Older Adults (ED), Facial Contusion (ED) Referrals: HEMAALTHA MORAN [Primary Care Provider] - 1 week
--- OUTSIDE RECORDS SUMMARY | 2024-04-07 20:55 | XMS_ITS | CCD ---
Author Organization [facility] [employer] Care Team Providers Care Dealer Analyst Name Role Phone Unavailable Primary Care Provider [...] [employer] Unavailable Bienvenido Barroso MD Unavailable [phone] EN, HAYLEY T Referring Unavailable YESENIA WHITE [...] 325 mg every 6 (six) hours. Active [id number] 200 actuat albuterol 0.09 mg/actuat metered dose inhaler (4 sources) beta2-Adrenergic Agonist Start: 04-27-2021 take 2 puff(s) by inhalation four times daily for wheezing Pro-Air HFA CFC free 90 mcg/inh MDI 2 puff(s), Inhalation, QID for wheezing, 8.5 gram, Refill(s) 0, [facility], 167.6, cm, 04/24/21 18:14:00 EST, [...] Daily, # 30 tab(s), Refills(s) 0, Pharmacy: [facility], 167, cm, 11/28/22 17:20:00 EDT, [...] Daily, # 90 tab(s), Refills(s) 4, Pharmacy: [facility], 160, cm, 12/18/22 0:04:00 EDT, [...] Daily, # 90 tab(s), Refills(s) 4, Pharmacy: [facility], 160, cm, 12/18/22 0:04:00 EDT, [...] Daily, # 90 tab(s), Refills(s) 1, Pharmacy: [facility], 160, cm, 12/18/22 0:04:00 EDT, [...] day, # 30 tab(s), Refills(s) 0, Pharmacy: [facility], 167, cm, 09/26/22 10:09:00 EDT, [...] qHS, # 210 tab(s), Refills(s) 1, Pharmacy: [facility], 160, cm, 12/18/22 0:04:00 EDT, [...] Bedtime, # 30 tab(s), Refills(s) 0, Pharmacy: [facility], 167, cm, 11/28/22 17:20:00 EDT, [...] Daily, # 90 tab(s), Refills(s) 1, Pharmacy: [facility], 160, cm, 12/18/22 0:04:00 EDT, Height/Length Dosing, 94, kg, 12/18/22 0:04:00 EDT, Weight Dosing Start Date: 01/15/23 Status: Ordered Start: 06-16-2014 take 1 tablet by rupetro once daily spironolactone 50 mg Tab 50 [...] week(s), # 8 cap(s), Refills(s) 0, Pharmacy: [facility], 167, cm, 11/28/22 17:20:00 EDT, [...] Start: 06-16-2014 take 1 capsule by [facility] twice daily tamsulosin 0.4 mg Cap 0.4 mg = 1 cap(s), Oral, BID, Refills(s) 0, Urinary discomfort Start Date: 06/16/14 Status: Ordered take 1 capsule by [facility] every twenty-four hours in the morning [...] Range Facility Office Visiton 03-22-2024 Follow-up visit [id number] Clyde Humphrey 1945 M Date Provider Department Center 03/22/2024 [id number] ALEGRIA [facility] No family history on file Level of Service:92414 UT OFFICE/OUTPATIENT ESTABLISHED MOD [facility] 30 MIN Reason for Visit and Comments: heart block [Other] - 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 Normal [facility] ALL BASIC METABOLIC PANELon 03-03-2024 Anion [...] rate/Area] 46 Low >=60 mL/min/1.73 m 2 [facility] Glucose [Mass/Vol] 132 mg/dL High 74 - 106 mg/dL [facility] Interpretation and review of laboratory results Abnormal [facility] Potassium [Moles/Vol] 4.3 mmol/L 3.5 - 5.1 mmol/L [facility] Sodium [Moles/Vol] 138 mmol/L 136 - 145 mmol/L [facility] TBH EGFR-NON AF UGANDAN 38 Low >=6 0 mL/min/1.73 m 2 [facility] Urea nitrogen [Mass/Vol] 37.0 mg/dL High 7.0 - 18.0 mg/dL [facility] Urea nitrogen/Creatinine [Mass ratio] 21.4 mg/mg [facility] ALL PRO BNPon 03-03-2024 NT PRO B TYPE NATRIURETIC PEPT 1772.0 pg/mL NINF - 1800.0 pg/mL [facility] No Panel Informationon 03-03 [facility] ALL CBC WITH AUTO DIFFon BASOPHILS ABSOLUTE AUTO 0.0 N [facility] Basophils/100 WBC (Bld) 0.4 % 0.2 - 2.0 % [facility] Eosinophils/100 WBC (Bld) 15.4 % High 0.9 - 7.0 % [facility] Erythrocyte distribution width (RBC) [Ratio] 16.1 % High 11.0 - 15.0 % [facility] Hematocrit (Bld) [Volume fraction] 40.0 % Low 42.0 - 54.0 % [facility] Hemoglobin (Bld) [Mass/Vol] 12.6 g/dL Low 14.0 - 18.0 g/dL [facility] IMMATURE GRANULOCYTES ABS AUTO 0.22 High [facility] Immature granulocytes/100 WBC (Bld) 2.9 % High 0.0 - 0.5 % [facility] Interpretation and review of laboratory results Abnormal [facility] LYMPHOCYTES ABSOLUTE AUTO 1.3 [facility] Lymphocytes/100 WBC (Bld) 16.9 % Low 20.5 - 60.0 % [facility] MCH (RBC) [Entitic mass] 28.7 pg 25. 9 - 34.0 pg [facility] MCHC (RBC) [Mass/Vol] 31.5 g/dL 29.9 [...] [facility] Office Visiton 01-21-2024 Follow-up visit [id number] Clyde Humphrey 1945 M Date Provider Department Center 01/21/2024 [id number] ALEGRIA [facility] No family history on file Level of Service:61826 UT POSTOP FOLLOW UP VISIT RELATED TO ORIGINAL PX Normal [facility] 30on 01-16-2024 30 The patient is [...] pain management techniques Outcome: Progressing . Normal [facility] BASIC METABOLIC PANELon 12-23 Anion gap [Moles/Vol] 13 mmol/L Normal 7-20 [facility] Comment on above: Performed By: #### L [id number] ####[facility] ([facility])[address] [place] [address] Calcium [Mass/Vol] 8.8 mg/dL Normal 8.6-10.3 [facility] Comment on above: Performed By: #### L [id number] ####[facility] ([facility])[address] [place] [address] Chloride [Moles/Vol] 104 mmol/L Normal 98-107 [facility] Comment on above: Performed By: #### L [id number] ####[facility] ([facility])[address] [place] [address] CO2 [Moles/Vol] 29 mmol/L Normal 21-31 [facility] Comment on above: Performed By: #### L [id number] ####[facility] ([facility])[address] [place] [address] Creatinine [Mass/Vol] 1.02 mg/dL Normal 0.70-1.30 [facility] Comment on above: Performed By: #### L [id number] ####[facility] ([facility])[address] [place] [address] GLOMERULAR FILTRATION RATE ML/MIN/1.73 SQ M.PREDICTED 74.8 mL/min/1.73m*2 Normal >60.0 [facility] Comment on above: Result Comment: [facility]???s estimated glomerular filtration rate (eGFR) will [...] of individuals. Performed By: #### L [id number] ####[facility] ([facility])[address] [place] [address] Glucose [Mass/Vol] 99 mg/dL Normal 70-100 [facility] Comment on above: Performed By: #### L [id number] ####[facility] ([facility])[address] [place] [address] Potassium [Moles/Vol] 4.2 mmol/L Normal 3.5-5.1 [facility] Comment on above: Performed By: #### L [id number] ####[facility] ([facility])[address] [place] [address] Sodium [Moles/Vol] 142 mmol/L Normal 136-145 [facility] Comment on above: Performed By: #### L [id number] ####[facility] ([facility])[address] [place] [address] Urea nitrogen [Mass/Vol] 27 mg/dL High 12-15 [facility] Comment on above: Performed By: #### L [id number] ####[facility] ([facility])[address] [place] [address] UREA NITROGEN/CREATININE (MASS RATIO) IN SER/PLAS 26.5 Normal [facility] Comment on above: Performed By: #### L [id number] ####[facility] ([facility])[address] [place] [address] CBC WITH AUTO DIFFERENTIALon 01-16-2024 Basophils (Bld) [#/Vol] 0.03 10*3/uL Normal 0.00-0.20 [facility] Comment on above: Performed By: #### L [id number] #### [facility] ([facility]) [address] [place] [address] Basophils/100 WBC (Bld) 0.4 % Normal 0.0-1.0 [facility] Comment on above: Performed By: #### L [id number] #### [facility] ([facility]) [address] [place] [address] Eosinophils (Bld) [#/Vol] 0.45 10*3/uL Normal 0.00-0.50 [facility] Comment on above: Performed By: #### L [id number] #### [facility] ([facility] [address] [place] [address] Eosinophils/100 WBC (Bld) 5.7 % Normal 0.0-6.0 [facility] Comment on above: Performed By: #### L [id number] #### [facility] [address] [place] [address] Erythrocyte distribution width (RBC) [Ratio] 14.6 % Normal 11.5-15.0 [facility] Comment on above: Performed By: #### L [id number] #### [facility] ([facility]) [address] [place] [address] ERYTHROCYTE MEAN CORPUSCULAR HEMOGLOBIN CONCENTRATION (G/DL) BY AUTOMATED 31.6 g/dL Low 32.0-35.0 [facility] Comment on above: Performed By: #### L [id number] #### [facility] ([facility]) [address] [place] [address] Hematocrit (Bld) [Volume fraction] 37.7 % Low 39.0-55.0 [facility] Comment on above: Performed By: #### L [id number] #### [facility] ([facility]) [address] [place] [address] Hemoglobin (Bld) [Mass/Vol] 11.9 g/dL Low 13.0-17.0 [facility] Comment on above: Performed By: #### L [id number] #### [facility] ([facility]) [address] [place] [address] Immature granulocytes (Bld) [#/Vol] 0.18 10*3/uL Normal 0.00-0.20 [facility] Comment on above: Performed By: #### L [id number] #### [facility] ([facility]) [address] [place] [address] Immature granulocytes/100 WBC (Bld) 2.3 % High 0.0-1.0 [facility] Comment on above: Performed By: #### L [id number] #### [facility] ([facility]) [address] [address] Lymphocytes (Bld) [#/Vol] 1.51 10*3/uL Normal 1.20-4.00 [facility] Comment on above: Performed By: #### L [id number] #### [facility] ([facility]) [address] [place] [address] Lymphocytes/100 WBC (Bld) 19.3 % Low 20.0-45.0 [facility] Comment on above: Performed By: #### L [id number] #### [facility] ([facility]) [address] [place] [address] MCH (RBC) [Entitic mass] 28.4 pg Normal 27.0-33.0 [facility] Comment on above: Performed By: #### L [id number] #### [facility] ([facility]) [address] [place] [address] MCV (RBC) [Entitic vol] 90.0 fL Normal 82.0-98.0 [facility] Comment on above: Performed By: #### L [id number] #### [facility] ([facility]) [address] [place] [address] Monocytes (Bld) [#/Vol] 0.90 10*3/uL Normal 0.10-1.00 [facility] Comment on above: Performed By: #### L [id number] #### [facility] ([facility]) [address] [place] [address] Monocytes/100 WBC (Bld) 11.5 % Normal 5.0-12.0 [facility] Comment on above: Performed By: #### L [id number] #### [facility] ([facility]) [address] [place] [address] Neutrophils (Bld) [#/Vol] 4.77 10*3/uL Normal 1.60-7.60 [facility] Comment on above: Performed By: #### L [id number] #### [facility] ([facility]) [address] [place] [address] Neutrophils/100 WBC (Bld) 60.8 % Normal 40.0-72.0 [facility] Comment on above: Performed By: #### L [id number] #### [facility] ([facility]) [address] [place] [address] NRBC (PER 100 WBCS) BY AUTOMATED COUNT 0.0 % Normal 0 [facility] Comment on above: Performed By: #### L [id number] #### [facility] ([facility]) [address] [place] [address] PLATELETS (10*3/UL) IN BLOOD AUTOMATED COUNT 159 10*3/uL Normal 150-400 [facility] Comment on above: Performed By: #### L [id number] #### [facility] ([facility]) [address] [place] [address] RBC (Bld) [#/Vol] 4.19 10*6/uL Low 4.20-5.70 [facility] Comment on above: Performed By: #### L [id number] #### [facility] ([facility]) [address] [place] [address] WBC (Bld) [#/Vol] 7.84 10*3/uL Normal 4.00-10.60 [facility] Comment on above: Performed By: #### L [id number] #### [facility] ([facility]) [address] [place] [address] NURSNOTEon 01-16-2024 NURSNOTE Pt discharged via [facility] with all belongings and questions answered to pt's satisfaction. Normal [facility] NURSNOTE RN attempted to call report to [facility], no answer Normal [facility] BASIC METABOLIC PANELon 12-23 Anion gap [Moles/Vol] 13 mmol/L Normal 7-20 [facility] Comment on above: Performed By: #### L [id number] ####[facility] ([facility])[address] [place] [address] Calcium [Mass/Vol] 8.6 mg/dL Normal 8.6-10.3 [facility] Comment on above: Performed By: #### L [id number] ####[facility] ([facility])[address] [place] [address] Chloride [Moles/Vol] 106 mmol/L Normal 98-107 [facility] Comment on above: Performed By: #### L [id number] ####[facility] ([facility])[address] [place] [address] CO2 [Moles/Vol] 29 mmol/L Normal 21-31 [facility] Comment on above: Performed By: #### L [id number] ####[facility] ([facility])[address] [place] [address] Creatinine [Mass/Vol] 0.98 mg/dL Normal 0.70-1.30 [facility] Comment on above: Performed By: #### L [id number] ####[facility] ([facility])[address] [place] [address] GLOMERULAR FILTRATION RATE ML/MIN/1.73 SQ M.PREDICTED 78.4 mL/min/1.73m*2 Normal >60.0 [facility] Comment on above: Result Comment: [facility]???s estimated glomerular filtration rate (eGFR) will [...] of individuals. Performed By: #### L [id number] ####[facility] ([facility])[address] [place] [address] Glucose [Mass/Vol] 101 mg/dL High 70-100 [facility] Comment on above: Performed By: #### L [id number] ####[facility] ([facility])[address] [place] [address] Potassium [Moles/Vol] 4.2 mmol/L Normal 3.5-5.1 [facility] Comment on above: Performed By: #### L [id number] ####[facility] ([facility])[address] [place] [address] Sodium [Moles/Vol] 144 mmol/L Normal 136-145 [facility] Comment on above: Performed By: #### L [id number] ####[facility] ([facility])[address] [place] [address] Urea nitrogen [Mass/Vol] 25 mg/dL Normal 7-25 [facility] Comment on above: Performed By: #### L [id number] ####[facility] ([facility])[address] [place] [address] UREA NITROGEN/CREATININE (MASS RATIO) IN SER/PLAS 25.5 Normal [facility] Comment on above: Performed By: #### L [id number] ####[facility] ([facility])[address] [place] [address] CBC WITH AUTO DIFFERENTIALon 01-15-2024 Basophils (Bld) [#/Vol] 0.05 10*3/uL Normal 0.00-0.20 [facility] Comment on above: Performed By: #### L [id number] #### [facility] ([facility]) [address] [place] [address] Basophils/100 WBC (Bld) 0.6 % Normal 0.0-1.0 [facility] Comment on above: Performed By: #### L [id number] #### [facility] ([facility]) [address] [place] [address] Eosinophils (Bld) [#/Vol] 0.53 10*3/uL High 0.00-0.50 [facility] Comment on above: Performed By: #### L [id number] #### [facility] ([facility]) [address] [place] [address] Eosinophils/100 WBC (Bld) 6.7 % High 0.0-6.0 [facility] Comment on above: Performed By: #### L [id number] #### [facility] ([facility]) [address] [place] [address] Erythrocyte distribution width (RBC) [Ratio] 14.9 % Normal 11.5-15.0 [facility] Comment on above: Performed By: #### L [id number] #### [facility] ([facility]) [address] [place] [address] ERYTHROCYTE MEAN CORPUSCULAR HEMOGLOBIN CONCENTRATION (G/DL) BY AUTOMATED 31.3 g/dL Low 32.0-35.0 [facility] Comment on above: Performed By: #### L [id number] #### [facility] ([facility]) [address] [place] [address] Hematocrit (Bld) [Volume fraction] 37.4 % Low 39.0-55.0 [facility] Comment on above: Performed By: #### L [id number] #### [facility] ([facility]) [address] [place] [address] Hemoglobin (Bld) [Mass/Vol] 11.7 g/dL Low 13.0-17.0 [facility] Comment on above: Performed By: #### L [id number] #### [facility] ([facility]) [address] [place] [address] Immature granulocytes (Bld) [#/Vol] 0.14 10*3/uL Normal 0.00-0.20 [facility] Comment on above: Performed By: #### L [id number] #### [facility] ([facility]) [address] [place] [address] Immature granulocytes/100 WBC (Bld) 1.8 % High 0.0-1.0 [facility] Comment on above: Performed By: #### L [id number] #### [facility] ([facility]) [address] [place] [address] Lymphocytes (Bld) [#/Vol] 1.27 10*3/uL Normal 1.20-4.00 [facility] Comment on above: Performed By: #### L [id number] #### [facility] ([facility]) [address] [place] [address] Lymphocytes/100 WBC (Bld) 16.2 % Low 20.0-45.0 [facility] Comment on above: Performed By: #### L [id number] #### [facility] ([facility]) [address] [place] [address] MCH (RBC) [Entitic mass] 28.5 pg Normal 27.0-33.0 [facility] Comment on above: Performed By: #### L [id number] #### [facility] ([facility]) [address] [place] [address] MCV (RBC) [Entitic vol] 91.0 fL Normal 82.0-98.0 [facility] Comment on above: Performed By: #### L [id number] #### [facility] ([facility]) [address] [place] [address] Monocytes (Bld) [#/Vol] 0.81 10*3/uL Normal 0.10-1.00 [facility] Comment on above: Performed By: #### L [id number] #### [facility] ([facility]) [address] [place] [address] Monocytes/100 WBC (Bld) 10.3 % Normal 5.0-12.0 [facility] Comment on above: Performed By: #### L [id number] #### [facility] ([facility]) [address] [place] [address] Neutrophils (Bld) [#/Vol] 5.06 10*3/uL Normal 1.60-7.60 [facility] Comment on above: Performed By: #### L [id number] #### [facility] ([facility]) [address] [place] [address] Neutrophils/100 WBC (Bld) 64.4 % Normal 40.0-72.0 [facility] Comment on above: Performed By: #### L [id number] #### [facility] ([facility]) [address] [place] [address] NRBC (PER 100 WBCS) BY AUTOMATED COUNT 0.0 % Normal 0 [facility] Comment on above: Performed By: #### L [id number] #### [facility] ([facility] [address] [place] [address] PLATELETS (10*3/UL) IN BLOOD AUTOMATED COUNT 156 10*3/uL Normal 150-400 [facility] Comment on above: Performed By: #### L [id number] #### [facility] ([facility]) [address] [place] [address] RBC (Bld) [#/Vol] 4.11 10*6/uL Low 4.20-5.70 [facility] Comment on above: Performed By: #### L [id number] #### [facility] ([facility]) [address] [place] [address] WBC (Bld) [#/Vol] 7.86 10*3/uL Normal 4.00-10.60 [facility] Comment on above: Performed By: #### L [id number] #### [facility] ([facility]) [address] [place] [address] NURSNOTEon 01-15-2024 NURSNOTE Nurse noted pt oxyge n saturation dipping below 92% due to patient sleeping soundly with mouth open. Nurse attempted to apply supplemental oxygen after explaining to patient via communication board. Pt began yelling at nurse and swatting the oxygen tubing away from his face. Will continue to monitor. Normal [facility] 30on 01-14-2024 30 The patient is [...] barriers include continuing to encourage sling. Normal [facility] 30 Daily Case Managemen t Update Multidisciplinary rounds have been completed. Barriers to Discharge: Pending medical clearance for discharge. Discharge plan [facility] to [facility] when medically ready. Diet: Dietary Orders [...] OT Six Click Score: 14 PT Recommendations: retirement facility placement OT Recommendations: retirement facility placement New Consults: Therapy Orders (From admission, onward) Start Ordered 01/11/24 1348 PT eval and treat Until therapy completed Question: Reason for PT? Answer: eval and treat 01/11/24 1347 01/11/24 1348 OT eval and treat Until therapy completed Question: Reason for OT? Answer: eval and treat 01/11/24 1347 Normal [facility] 30 The patient is Moderately Stable [...] and report changes in neurological status Normal [facility] BASIC METABOLIC PANELon 12-23 Anion gap [Moles/Vol] 12 mmol/L Normal 7-20 [facility] Comment on above: Performed By: #### L [id number] #### [facility] ([facility]) [address] [place] [address] Calcium [Mass/Vol] 8.5 mg/dL Low 8.6-10.3 [facility] Comment on above: Performed By: #### L [id number] #### [facility] ([facility]) [address] [place] [address] Chloride [Moles/Vol] 104 mmol/L Normal 98-107 [facility] Comment on above: Performed By: #### L [id number] #### [facility] ([facility]) [address] [place] [address] CO2 [Moles/Vol] 30 mmol/L Normal 21-31 [facility] Comment on above: Performed By: #### L [id number] #### [facility] ([facility]) [address] [place] [address] Creatinine [Mass/Vol] 0.93 mg/dL Normal 0.70-1.30 [facility] Comment on above: Performed By: #### L [id number] #### [facility] ([facility]) [address] [place] [address] GLOMERULAR FILTRATION RATE ML/MIN/1.73 SQ M.PREDICTED 83.5 mL/min/1.73m*2 Normal >60.0 [facility] Comment on above: Result Comment: [facility]???s estimated glomerular filtration rate (eGFR) will [...] individuals. Performed By: #### L [id number] #### [facility] ([facility]) [address] [place] [address] Glucose [Mass/Vol] 96 mg/dL Normal 70-100 [facility] Comment on above: Performed By: #### L [id number] #### [facility] ([facility]) [address] [place] [address] Potassium [Moles/Vol] 4.5 mmol/L Normal 3.5-5.1 [facility] Comment on above: Performed By: #### L [id number] #### [facility] ([facility]) [address] [place] [address] Sodium [Moles/Vol] 141 mmol/L Normal 136-145 [facility] Comment on above: Performed By: #### L [id number] #### [facility] ([facility] [address] [place] [address] Urea nitrogen [Mass/Vol] 20 mg/dL Normal 7-25 [facility] Comment on above: Performed By: #### L [id number] #### [facility] CENTER) [address] [place] [address] UREA NITROGEN/CREATININE (MASS RATIO) IN SER/PLAS 21.5 Normal [facility] Comment on above: Performed By: #### L [id number] #### [facility] ([facility]) [address] [place] [address] CBC WITH AUTO DIFFERENTIALon 01-14-2024 Basophils (Bld) [#/Vol] 0.03 10*3/uL Normal 0.00-0.20 [facility] Comment on above: Performed By: #### L [id number] ####[facility] ([facility])[address] [place] [address] Basophils/100 WBC (Bld) 0.4 % Normal 0.0-1.0 [facility] Comment on above: Performed By: #### L [id number] ####[facility] ([facility])[address] [place] [address] Eosinophils (Bld) [#/Vol] 0.54 10*3/uL High 0.00-0.50 [facility] Comment on above: Performed By: #### L [id number] ####[facility] ([facility])[address] [place] [address] Eosinophils/100 WBC (Bld) 6.4 % High 0.0-6.0 [facility] Comment on above: Performed By: #### L [id number] ####[facility] ([facility])[address] [place] [address] Erythrocyte distribution width (RBC) [Ratio] 14.6 % Normal 11.5-15.0 [facility] Comment on above: Performed By: #### L [id number] ####[facility] ([facility])[address] [place] [address] ERYTHROCYTE MEAN CORPUSCULAR HEMOGLOBIN CONCENTRATION (G/DL) BY AUTOMATED 31.9 g/dL Low 32.0-35.0 [facility] Comment on above: Performed By: #### L [id number] ####[facility] ([facility])[address] [place] [address] Hematocrit (Bld) [Volume fraction] 38.6 % Low 39.0-55.0 [facility] Comment on above: Performed By: #### L [id number] ####[facility] ([facility])[address] [place] [address] Hemoglobin (Bld) [Mass/Vol] 12.3 g/dL Low 13.0-17.0 [facility] Comment on above: Performed By: #### L [id number] ####[facility] ([facility])[address] [place] [address] Immature granulocytes (Bld) [#/Vol] 0.16 10*3/uL Normal 0.00-0.20 [facility] Comment on above: Performed By: #### L [id number] ####[facility] ([facility])[address] [place] [address] Immature granulocytes/100 WBC (Bld) 1.9 % High 0.0-1.0 [facility] Comment on above: Performed By: #### L [id number] ####[facility] ([facility])[address] [place] [address] Lymphocytes (Bld) [#/Vol] 1.07 10*3/uL Low 1.20-4.00 [facility] Comment on above: Performed By: #### L [id number] ####[facility] ([facility])[address] [place] [address] Lymphocytes/100 WBC (Bld) 12.7 % Low 20.0-45.0 [facility] Comment on above: Performed By: #### L [id number] ####[facility] ([facility])[address] [place] [address] MCH (RBC) [Entitic mass] 28.5 pg Normal 27.0-33.0 [facility] Comment on above: Performed By: #### L [id number] ####[facility] ([facility])[address] [place] [address] MCV (RBC) [Entitic vol] 89.4 fL Normal 82.0-98.0 [facility] Comment on above: Performed By: #### L [id number] ####[facility] ([facility])[address] [place] [address] Monocytes (Bld) [#/Vol] 0.59 10*3/uL Normal 0.10-1.00 [facility] Comment on above: Performed By: #### L [id number] ####[facility] ([facility])[address] [place], [place] [address] Monocytes/100 WBC (Bld) 7.0 % Normal 5.0-12.0 [facility] Comment on above: Performed By: #### L [id number] ####[facility] ([facility])[address] [place] [address] Neutrophils (Bld) [#/Vol] 6.01 10*3/uL Normal 1.60-7.60 [facility] Comment on above: Performed By: #### L [id number] ####[facility] ([facility])[address] [place] [address] Neutrophils/100 WBC (Bld) 71.6 % Normal 40.0-72.0 [facility] Comment on above: Performed By: #### L [id number] ####[facility] ([facility])[address] [place], [place] [address] NRBC (PER 100 WBCS) BY AUTOMATED COUNT 0.0 % Normal 0 [facility] Comment on above: Performed By: #### L [id number] ####[facility] ([facility])[address] [place], [place] [address] PLATELETS (10*3/UL) IN BLOOD AUTOMATED COUNT 159 10*3/uL Normal 150-400 [facility] Comment on above: Performed By: #### L [id number] ####[facility] ([facility])[address] [place] [address] RBC (Bld) [#/Vol] 4.32 10*6/uL Normal 4.20-5.70 [facility] Comment on above: Performed By: #### L [id number] ####[facility] ([facility])[address] [place] [address] WBC (Bld) [#/Vol] 8.40 10*3/uL Normal 4.00-10.60 [facility] Comment on above: Performed By: #### L [id number] ####[facility] ([facility])[address] [place] [address] HEMOGLOBIN AND HEMATOCRIT, B LOODon 01-14-2024 Hematocrit (Bld) [Volume fraction] 42.2 % Normal 39.0-55.0 [facility] Comment on above: Performed By: #### L [id number] ####[facility] ([facility])[address] [place] [address] Hemoglobin (Bld) [Mass/Vol] 13.1 g/dL Normal 13.0-17.0 [facility] Comment on above: Performed By: #### L [id number] ####[facility] ([facility])[address] [place] [address] POCT GLUCOSE METER UNSOLICIT ED RESULTSon 01-14-2024 Glucose [Mass/Vol] 111 mg/dL High 70-105 [facility] Comment on above: Order Comment: Waive d Testing in the ED is performed under the ED CLIA certificate #[id number]. Result Comment: [email or web address] fry Performed By: #### L [id number] ####[facility] ([facility])[address] [place] [address] Glucose [Mass/Vol] 151 mg/dL High 70-105 [facility] Comment on above: Order Comment: Waive d Testing in the ED is performed under the ED CLIA certificate #[id number]. Result Comment: [id number] Performed By: #### L [id number] #### [facility] ([facility]) [address] [place] [address] Glucose [Mass/Vol] 205 mg/dL High 70-105 [facility] Comment on above: Order Comment: Waive d Testing in the ED is performed under the ED CLIA certificate #[id number]. Result Comment: [id number] Performed By: #### L [id number] #### [facility] ([facility]) [address] [place] [address] 30on 01-13-2024 30 Problem: Pain Goal: STG-Pt [...] Patient wheezy duoneb and lasix received. Normal [facility] 30 Daily Case Managemen t Update Multidisciplinary rounds have been completed. Barriers to Discharge: Pending clinical course and improvement in clinical condition. Pending precert to [facility]; started today. Diet: Dietary [...] OT Six Click Score: 14 PT Recommendations: retirement facility placement OT Recommendations: retirement facility placement New Consults: Therapy Orders (From admission, onward) Start Ordered 01/11/24 1348 PT eval and treat Until therapy completed Question: Reason for PT? Answer: eval and treat 01/11/24 1347 01/11/24 1348 OT eval and treat Until therapy completed Question: Reason for OT? Answer: eval and treat 01/11/24 1347 Normal [facility] 30 The patient is Moderately Stable [...] difficulty Respiratory therapy support as indicated Normal [facility] BASIC METABOLIC PANELon 12-23 Anion gap [Moles/Vol] 9 mmol/L Normal 7-20 [facility] Comment on above: Performed By: #### L [id number] #### [facility] ([facility]) [address] [place] [address] Calcium [Mass/Vol] 8.3 mg/dL Low 8.6-10.3 [facility] Comment on above: Performed By: #### L [id number] #### [facility] ([facility]) [address] [place] [address] Chloride [Moles/Vol] 105 mmol/L Normal 98-107 [facility] Comment on above: Performed By: #### L [id number] #### [facility] ([facility]) [address] [place] [address] CO2 [Moles/Vol] 29 mmol/L Normal 21-31 [facility] Comment on above: Performed By: #### L [id number] #### [facility] ([facility]) [address] [place] [address] Creatinine [Mass/Vol] 0.74 mg/dL Normal 0.70-1.30 [facility] Comment on above: Performed By: #### L [id number] #### [facility] ([facility]) [address] [place] [address] GLOMERULAR FILTRATION RATE ML/MIN/1.73 SQ M.PREDICTED 92.2 mL/min/1.73m*2 Normal >60.0 [facility] Comment on above: Result Comment: [facility]???s estimated glomerular filtration rate (eGFR) will [...] group of individuals. Performed By: #### L [id number] #### [facility] ([facility]) [address] [place] [address] Glucose [Mass/Vol] 106 mg/dL High 70-100 [facility] Comment on above: Performed By: #### L [id number] #### [facility] ([facility]) [address] [place] [address] Potassium [Moles/Vol] 4.3 mmol/L Normal 3.5-5.1 [facility] Comment on above: Performed By: #### L [id number] #### [facility] ([facility]) [address] [place] [address] Sodium [Moles/Vol] 139 mmol/L Normal 136-145 [facility] Comment on above: Performed By: #### L [id number] #### [facility] ([facility]) [address] [place] [address] Urea nitrogen [Mass/Vol] 16 mg/dL Normal 7-25 [facility] Comment on above: Performed By: #### L [id number] #### [facility] ([facility]) [address] [place] [address] UREA NITROGEN/CREATININE (MASS RATIO) IN SER/PLAS 21.6 Normal [facility] Comment on above: Performed By: #### L [id number] #### [facility] ([facility]) [address] [place] [address] CBC WITH AUTO DIFFERENTIALon 01-13-2024 Basophils (Bld) [#/Vol] 0.04 10*3/uL Normal 0.00-0.20 [facility] Comment on above: Performed By: #### L [id number] #### [facility] ([facility]) [address] [place] [address] Basophils/100 WBC (Bld) 0.5 % Normal 0.0-1.0 [facility] Comment on above: Performed By: #### L [id number] #### [facility] ([facility]) [address] [place] [address] Eosinophils (Bld) [#/Vol] 0.45 10*3/uL Normal 0.00-0.50 [facility] Comment on above: Performed By: #### L [id number] #### [facility] ([facility]) [address] [place] [address] Eosinophils/100 WBC (Bld) 5.9 % Normal 0.0-6.0 [facility] Comment on above: Performed By: #### L [id number] #### [facility] ([facility]) [address] [place] [address] Erythrocyte distribution width (RBC) [Ratio] 14.6 % Normal 11.5-15.0 [facility] Comment on above: Performed By: #### L [id number] #### [facility] ([facility]) [address] [place] [address] ERYTHROCYTE MEAN CORPUSCULAR HEMOGLOBIN CONCENTRATION (G/DL) BY AUTOMATED 31.9 g/dL Low 32.0-35.0 [facility] Comment on above: Performed By: #### L [id number] #### [facility] ([facility]) [address] [place] [address] Hematocrit (Bld) [Volume fraction] 35.7 % Low 39.0-55.0 [facility] Comment on above: Performed By: #### L [id number] #### [facility] ([facility]) [address] [place] [address] Hemoglobin (Bld) [Mass/Vol] 11.4 g/dL Low 13.0-17.0 [facility] Comment on above: Performed By: #### L [id number] #### [facility] ([facility]) [address] [place] [address] Immature granulocytes (Bld) [#/Vol] 0.15 10*3/uL Normal 0.00-0.20 [facility] Comment on above: Performed By: #### L [id number] #### [facility] ([facility]) [address] [place] [address] Immature granulocytes/100 WBC (Bld) 2.0 % High 0.0-1.0 [facility] Comment on above: Performed By: #### L [id number] #### [facility] ([facility]) [address] [place] [address] Lymphocytes (Bld) [#/Vol] 1.22 10*3/uL Normal 1.20-4.00 [facility] Comment on above: Performed By: #### L [id number] #### [facility] ([facility]) [address] [place] [address] Lymphocytes/100 WBC (Bld) 16.1 % Low 20.0-45.0 [facility] Comment on above: Performed By: #### L [id number] #### [facility] ([facility]) [address] [address] MCH (RBC) [Entitic mass] 28.6 pg Normal 27.0-33.0 [facility] Comment on above: Performed By: #### L [id number] #### [facility] ([facility]) [address] [place] [address] MCV (RBC) [Entitic vol] 89.5 fL Normal 82.0-98.0 [facility] Comment on above: Performed By: #### L [id number] #### [facility] ([facility]) [address] [place] [address] Monocytes (Bld) [#/Vol] 0.83 10*3/uL Normal 0.10-1.00 [facility] Comment on above: Performed By: #### L [id number] #### [facility] ([facility]) [address] [place] [address] Monocytes/100 WBC (Bld) 10.9 % Normal 5.0-12.0 [facility] Comment on above: Performed By: #### L [id number] #### [facility] ([facility]) [address] [place] [address] Neutrophils (Bld) [#/Vol] 4.89 10*3/uL Normal 1.60-7.60 [facility] Comment on above: Performed By: #### L [id number] #### [facility] ([facility]) [address] [place] [address] Neutrophils/100 WBC (Bld) 64.6 % Normal 40.0-72.0 [facility] Comment on above: Performed By: #### L [id number] #### [facility] ([facility]) [address] [place] [address] NRBC (PER 100 WBCS) BY AUTOMATED COUNT 0.0 % Normal 0 [facility] Comment on above: Performed By: #### L [id number] #### [facility] ([facility]) [address] [place] [address] PLATELETS (10*3/UL) IN BLOOD AUTOMATED COUNT 152 10*3/uL Normal 150-400 [facility] Comment on above: Performed By: #### L [id number] #### [facility] ([facility]) [address] [place] [address] RBC (Bld) [#/Vol] 3.99 10*6/uL Low 4.20-5.70 [facility] Comment on above: Performed By: #### L [id number] #### [facility] ([facility]) [address] [place] [address] WBC (Bld) [#/Vol] 7.58 10*3/uL Normal 4.00-10.60 [facility] Comment on above: Performed By: #### L [id number] #### [facility] ([facility]) [address] [place] [address] FERRITINon 01-13-2024 FERRITIN (NG/ML) IN SER/PLAS 53.0 ng/mL Normal 24.0-336.0 [facility] Comment on above: Performed By: #### L [id number] #### [facility] ([facility]) [address] [place] [address] FOLATEon 01-13-2024 FOLATE (NG/ML) IN SER/PLAS 12.14 ng/mL Normal 6.6-1000 [facility] Comment on above: Performed By: #### L [id number] ####[facility] ([facility])[address] [place] [address] IRON AND TIBCon 01-13-2024 IRON (UG/DL) IN SER/PLAS 37 ug/dL Low 50-212 [facility] Comment on above: Performed By: #### L [id number] #### [facility] ([facility]) [address] [place] [address] IRON BINDING CAPACITY (UG/DL) IN SER/PLAS 244 ug/dL Low 250-450 [facility] Comment on above: Performed By: #### L [id number] #### [facility] ([facility]) [address] [place] [address] IRON BINDING CAPACITY.UNSATURATED (UG/DL) IN SER/PLAS 207.0 ug/dL Normal 155.0-355.0 [facility] Comment on above: Performed By: #### L [id number] #### [facility] ([facility]) [address] [place] [address] IRON SATURATION (%) IN SER/PLAS 15 % Low 20-50 [facility] Comment on above: Performed By: #### L [id number] #### [facility] ([facility]) [address] [place] [address] PHOSPHORUSon 01-13-2024 Magnesium [Mass/Vol] 2.7 mg/dL Normal 2.5-5.0 [facility] Comment on above: Performed By: #### L [id number] #### [facility] ([facility]) [address] [place] [address] POCT GLUCOSE METER UNSOLICIT ED RESULTSon 01-13-2024 Glucose [Mass/Vol] 107 mg/dL High 70-105 [facility] Comment on above: Order Comment: Waive d Testing in the ED is performed under the ED CLIA certificate #[id number]. Result Comment: [email or web address] Performed By: #### L [id number] #### [facility] ([facility]) [address] [place] [address] Glucose [Mass/Vol] 115 mg/dL High 70-105 [facility] Comment on above: Order Comment: Waive d Testing in the ED is performed under the ED CLIA certificate #[id number]. Result Comment: [email or web address] Performed By: #### L [id number] #### [facility] ([facility]) [address] [place] [address] Glucose [Mass/Vol] 164 mg/dL High 70-105 [facility] Comment on above: Order Comment: Waive d Testing in the ED is performed under the ED CLIA certificate #[id number]. Result Comment: [email or web address] Performed By: #### L [id number] #### [facility] ([facility]) [address] [place] [address] Glucose [Mass/Vol] 116 mg/dL High 70-105 [facility] Comment on above: Order Comment: Waive d Testing in the ED is performed under the ED CLIA certificate #[id number]. Result Comment: [email or web address] Performed By: #### L [id number] #### [facility] ([facility]) [address] [place] [address] VITAMIN B12on 01-13-2024 Cobalamin (Vitamin B12) [Mass/Vol] 179 pg/mL Low 180-914 [facility] Comment on above: Result Comment: REFMarlen MORALES RANGES: 180-914 pg/mL Normal 145-179 pg/mL Indeterminate <145 pg/mL Deficient Performed By: #### L [id number] ####[facility] ([place])[address] [place] [address] 30on 01-12-2024 30 Daily Case Managemen t Update Multidisciplinary rounds have been completed. Barriers to Discharge: 01/11- still waiting on pt ot, awaiting SW to confirm return to [facility], needs to talk to daughter, aware. Ct [...] Click Score: 14 PT Recommendations: OT Recommendations: retirement facility placement New Consults: Consult Orders (From [...] Answer: eval and treat 01/11/24 1347 Normal [facility] CBCon 01-12-2024 Erythrocyte distribution width (RBC) [Ratio] 14.6 % Normal 11.5-15.0 [facility] Comment on above: Performed By: #### L [id number] #### [facility] ([facility]) [address] [place] [address] ERYTHROCYTE MEAN CORPUSCULAR HEMOGLOBIN CONCENTRATION (G/DL) BY AUTOMATED 32.2 g/dL Normal 32.0-35.0 [facility] Comment on above: Performed By: #### L [id number] #### [facility] ([facility]) [address] [place] [address] Hematocrit (Bld) [Volume fraction] 34.5 % Low 39.0-55.0 [facility] Comment on above: Performed By: #### L [id number] #### [facility] ([facility]) [address] [place] [address] Hemoglobin (Bld) [Mass/Vol] 11.1 g/dL Low 13.0-17.0 [facility] Comment on above: Performed By: #### L [id number] #### [facility] ([facility]) [address] [place] [address] MCH (RBC) [Entitic mass] 28.8 pg Normal 27.0-33.0 [facility] Comment on above: Performed By: #### L [id number] #### [facility] ([facility]) [address] [place] [address] MCV (RBC) [Entitic vol] 89.4 fL Normal 82.0-98.0 [facility] Comment on above: Performed By: #### L [id number] #### [facility] ([facility]) [address] [place] [address] PLATELETS (10*3/UL) IN BLOOD AUTOMATED COUNT 146 10*3/uL Low 150-400 [facility] Comment on above: Performed By: #### L [id number] #### [facility] ([facility]) [address] [place] [address] RBC (Bld) [#/Vol] 3.86 10*6/uL Low 4.20-5.70 [facility] Comment on above: Performed By: #### L [id number] #### [facility] ([facility]) [address] [place] [address] WBC (Bld) [#/Vol] 8.81 10*3/uL Normal 4.00-10.60 [facility] Comment on above: Performed By: #### L [id number] #### [facility] ([facility]) [address] [place] [address] COMPREHENSIVE METABOLIC PANE Michael 01-12-2024 Albumin [Mass/Vol] 3.1 g/dL Low 3.5-5.7 [facility] Comment on above: Performed By: #### L [id number] #### [facility] ([facility]) [address] [place] [address] ALP [Catalytic activity/Vol] 33 U/L Low 34-104 [facility] Comment on above: Performed By: #### L [id number] #### [facility] ([facility]) [address] [place] [address] ALT [Catalytic activity/Vol] 17 U/L Normal 7-52 [facility] Comment on above: Performed By: #### L [id number] #### [facility] ([facility]) [address] [place] [address] Anion gap [Moles/Vol] 11 mmol/L Normal 7-20 [facility] Comment on above: Performed By: #### L [id number] #### [facility] ([facility]) [address] [place] [address] AST [Catalytic activity/Vol] 16 U/L Normal 13-39 [facility] Comment on above: Performed By: #### L [id number] #### [facility] ([facility]) [address] [place] [address] Bilirubin [Mass/Vol] 0.4 mg/dL Normal 0.3-1.0 [facility] Comment on above: Performed By: #### L [id number] #### [facility] ([facility]) [address] [place] [address] Calcium [Mass/Vol] 8.4 mg/dL Low 8.6-10.3 [facility] Comment on above: Performed By: #### L [id number] #### [facility] ([facility]) [address] [place] [address] Chloride [Moles/Vol] 103 mmol/L Normal 98-107 [facility] Comment on above: Performed By: #### L [id number] #### [facility] ([facility]) [address] [place] [address] CO2 [Moles/Vol] 28 mmol/L Normal 21-31 [facility] Comment on above: Performed By: #### L [id number] #### [facility] ([facility]) [address] [place] [address] Creatinine [Mass/Vol] 0.84 mg/dL Normal 0.70-1.30 [facility] Comment on above: Performed By: #### L [id number] #### [facility] ([facility]) [address] [place] [address] GLOMERULAR FILTRATION RATE ML/MIN/1.73 SQ M.PREDICTED 88.7 mL/min/1.73m*2 Normal >60.0 [facility] Comment on above: Result Comment: [facility]???s estimated glomerular filtration rate (eGFR) will [...] individuals. Performed By: #### L [id number] #### [facility] ([facility] [address] [place] [address] Glucose [Mass/Vol] 85 mg/dL Normal 70-100 [facility] Comment on above: Performed By: #### L [id number] #### [facility] ([facility] [address] [place] [address] Potassium [Moles/Vol] 4.0 mmol/L Normal 3.5-5.1 [facility] Comment on above: Performed By: #### L [id number] #### [facility] [address] [place] [address] Protein [Mass/Vol] 5.4 g/dL Low 6.0-8.3 [facility] Comment on above: Performed By: #### L [id number] #### [facility] ([facility]) [address] [place] [address] Sodium [Moles/Vol] 138 mmol/L Normal 136-145 [facility] Comment on above: Performed By: #### L [id number] #### [facility] ([facility]) [address] [place] [address] Urea nitrogen [Mass/Vol] 19 mg/dL Normal 7-25 [facility] Comment on above: Performed By: #### L [id number] #### [facility] ([facility]) [address] [place] [address] UREA NITROGEN/CREATININE (MASS RATIO) IN SER/PLAS 22.6 Normal [facility] Comment on above: Performed By: #### L [id number] #### [facility] ([facility]) [address] [place] [address] CONSULTon 01-12-2024 CONSULT Reason For Consult: s/p [...] Injury 78 y.o. male who presented to [facility] on 01/09/24 as a transfer from [facility] for symptomatic bradycardia with complete heart block. Patient with a history of dementia, difficulty answering questions thoroughly because of dementia and hearing loss. Majority of history obtained via chart review. Patient with multiple episodes of presyncope reported prior to admission. No clearly documented falls. On arrival to [facility] he was noted to have a heart rate in the 30s. He was transferred to [facility] for Cardiology evaluation and underwent PPM [...] history of COPD (chronic obstructive pulmonary disease) ([facility]), Seizure ([facility]), and Sleep apnea. Past Surgical History: has [...] EOMI. Neurologic: (more content not included)... Normal [facility] CT CERVICAL SPINE WO IV CONT [...] Kan Nicole. Not Vlsuzy Invalid Interpretation Code [facility] Comment on above: Order Comment: Traum [...] Kan Nicole. Not Vldtmat Invalid Interpretation Code [facility] MAGNESIUMon 01-12-2024 Magnesium [Mass/Vol] 2.0 mg/dL Normal 1.9-2.7 [facility] Comment on above: Performed By: #### L [id number] #### [facility] ([facility]) [address] [place] [address] PHOSPHORUSon 01-12-2024 Magnesium [Mass/Vol] 2.1 mg/dL Low 2.5-5.0 [facility] Comment on above: Performed By: #### L [id number] #### [facility] ([facility]) [address] [place] [address] POCT GLUCOSE METER UNSOLICIT ED RESULTSon 01-12-2024 Glucose [Mass/Vol] 153 mg/dL High 70-105 [facility] Comment on above: Order Comment: Waive d Testing in the ED is performed under the ED CLIA certificate #[id number]. Result Comment: [email or web address] Performed By: #### L [id number] #### [facility] ([facility]) [address] [place] [address] Glucose [Mass/Vol] 134 mg/dL High 70-105 [facility] Comment on above: Order Comment: Waive d Testing in the ED is performed under the ED CLIA certificate #[id number]. Result Comment: [email or web address] Performed By: #### L [id number] ####[facility] ([facility])[address] [place] [address] Glucose [Mass/Vol] 210 mg/dL High 70-105 [facility] Comment on above: Order Comment: Waive d Testing in the ED is performed under the ED CLIA certificate #[id number]. Result Comment: emol [email or web address] Performed By: #### L [id number] #### [facility] ([facility]) [address] [place] [address] Glucose [Mass/Vol] 103 mg/dL Normal 70-105 [facility] Comment on above: Order Comment: Waive d Testing in the ED is performed under the ED CLIA certificate #[id number]. Result Comment: [email or web address] Performed By: #### L [id number] #### [facility] ([facility]) [address] [place] [address] 30on 01-11-2024 30 Daily Case Managemen t Update Multidisciplinary rounds have been completed. Barriers to Discharge: 01/10- s/p [place]er[place] DC-PPM. No overnight events. Mentation appears improved/back to baseline. PT OT ordered, from [facility]? Not sure if returning. On RA, [...] Answer: eval and treat 01/11/24 1347 Normal [facility] AMMONIAon 01-11-2024 AMMONIA (UMOL/L) IN PLASMA 41 umol/L Normal 18-72 [facility] Comment on above: Performed By: #### L [id number] #### [facility] ([facility]) [address] [place] [address] B-TYPE NATRIURETIC PEPTIDEon 01-11-2024 Natriuretic peptide B (Bld) [Mass/Vol] 1312 pg/mL High 0-100 [facility] Comment on above: Performed By: #### L [id number] #### [facility] ([facility]) [address] [place] [address] BASIC METABOLIC PANELon 08- 0 Anion gap [Moles/Vol] 10 mmol/L Normal 7-20 [facility] Comment on above: Performed By: #### L [id number] ####[facility] ([facility])[address] [place] [address] Calcium [Mass/Vol] 8.3 mg/dL Low 8.6-10.3 [facility] Comment on above: Performed By: #### L [id number] ####[facility] ([facility])[address] [place] [address] Chloride [Moles/Vol] 104 mmol/L Normal 98-107 [facility] Comment on above: Performed By: #### L [id number] ####[facility] ([facility])[address] [place] [address] CO2 [Moles/Vol] 26 mmol/L Normal 21-31 [facility] Comment on above: Performed By: #### L [id number] ####[facility] ([facility])[address] [place] [address] Creatinine [Mass/Vol] 0.84 mg/dL Normal 0.70-1.30 [facility] Comment on above: Performed By: #### L [id number] ####[facility] ([facility])[address] [place] [address] GLOMERULAR FILTRATION RATE ML/MIN/1.73 SQ M.PREDICTED 88.7 mL/min/1.73m*2 Normal >60.0 [facility] Comment on above: Result Comment: [facility]???s estimated glomerular filtration rate (eGFR) will [...] of individuals. Performed By: #### L [id number] ####[facility] ([facility])[address] [place] [address] Glucose [Mass/Vol] 118 mg/dL High 70-100 [facility] Comment on above: Performed By: #### L [id number] ####[facility] ([facility])[address] [place] [address] Potassium [Moles/Vol] 4.0 mmol/L Normal 3.5-5.1 [facility] Comment on above: Performed By: #### L [id number] ####[facility] ([facility])[address] [place] [address] Sodium [Moles/Vol] 136 mmol/L Normal 136-145 [facility] Comment on above: Performed By: #### L [id number] ####[facility] ([facility])[address] [place] [address] Urea nitrogen [Mass/Vol] 29 mg/dL High 7-25 [facility] Comment on above: Performed By: #### L [id number] ####[facility] ([facility])[address] [place] [address] UREA NITROGEN/CREATININE (MASS RATIO) IN SER/PLAS 34.5 Normal [facility] Comment on above: Performed By: #### L [id number] ####[facility] ([facility])[address] [place] [address] CBC WITH AUTO DIFFERENTIALon 01-11-2024 Basophils (Bld) [#/Vol] 0.04 10*3/uL Normal 0.00-0.20 [facility] Comment on above: Performed By: #### L [id number] #### [facility] ([facility]) [address] [place] [address] Basophils/100 WBC (Bld) 0.5 % Normal 0.0-1.0 [facility] Comment on above: Performed By: #### L [id number] #### [facility] ([facility]) [address] [place] [address] Eosinophils (Bld) [#/Vol] 0.57 10*3/uL High 0.00-0.50 [facility] Comment on above: Performed By: #### L [id number] #### [facility] ([facility]) [address] [address] Eosinophils/100 WBC (Bld) 7.7 % High 0.0-6.0 [facility] Comment on above: Performed By: #### L [id number] #### [facility] ([facility]) [address] [place] [address] Erythrocyte distribution width (RBC) [Ratio] 14.6 % Normal 11.5-15.0 [facility] Comment on above: Performed By: #### L [id number] #### [facility] ([facility]) [address] [place] [address] ERYTHROCYTE MEAN CORPUSCULAR HEMOGLOBIN CONCENTRATION (G/DL) BY AUTOMATED 32.9 g/dL Normal 32.0-35.0 [facility] Comment on above: Performed By: #### L [id number] #### [facility] ([facility]) [address] [place] [address] Hematocrit (Bld) [Volume fraction] 34.0 % Low 39.0-55.0 [facility] Comment on above: Performed By: #### L [id number] #### [facility] ([facility]) [address] [place] [address] Hemoglobin (Bld) [Mass/Vol] 11.2 g/dL Low 13.0-17.0 [facility] Comment on above: Performed By: #### L [id number] #### [facility] ([facility]) [address] [place] [address] Immature granulocytes (Bld) [#/Vol] 0.06 10*3/uL Normal 0.00-0.20 [facility] Comment on above: Performed By: #### L [id number] #### [facility] ([facility]) [address] [address] Immature granulocytes/100 WBC (Bld) 0.8 % Normal 0.0-1.0 [facility] Comment on above: Performed By: #### L [id number] #### [facility] ([facility]) [address] [place] [address] Lymphocytes (Bld) [#/Vol] 0.80 10*3/uL Low 1.20-4.00 [facility] Comment on above: Performed By: #### L [id number] #### [facility] ([facility]) [address] [place] [address] Lymphocytes/100 WBC (Bld) 10.8 % Low 20.0-45.0 [facility] Comment on above: Performed By: #### L [id number] #### [facility] ([facility]) [address] [place] [address] MCH (RBC) [Entitic mass] 28.5 pg Normal 27.0-33.0 [facility] Comment on above: Performed By: #### L [id number] #### [facility] ([facility]) [address] [place] [address] MCV (RBC) [Entitic vol] 86.5 fL Normal 82.0-98.0 [facility] Comment on above: Performed By: #### L [id number] #### [facility] ([facility]) [address] [place] [address] Monocytes (Bld) [#/Vol] 0.70 10*3/uL Normal 0.10-1.00 [facility] Comment on above: Performed By: #### L [id number] #### [facility] ([facility]) [address] [place] [address] Monocytes/100 WBC (Bld) 9.4 % Normal 5.0-12.0 [facility] Comment on above: Performed By: #### L [id number] #### [facility] ([facility]) [address] [place] [address] Neutrophils (Bld) [#/Vol] 5.27 10*3/uL Normal 1.60-7.60 [facility] Comment on above: Performed By: #### L [id number] #### [facility] ([facility]) [address] [place] [address] Neutrophils/100 WBC (Bld) 70.8 % Normal 40.0-72.0 [facility] Comment on above: Performed By: #### L [id number] #### [facility] ([facility]) [address] [place] [address] NRBC (PER 100 WBCS) BY AUTOMATED COUNT 0.0 % Normal 0 [facility] Comment on above: Performed By: #### L [id number] #### [facility] ([facility]) [address] [place] [address] PLATELETS (10*3/UL) IN BLOOD AUTOMATED COUNT 155 10*3/uL Normal 150-400 [facility] Comment on above: Performed By: #### L [id number] #### [facility] ([facility]) [address] [place] [address] RBC (Bld) [#/Vol] 3.93 10*6/uL Low 4.20-5.70 [facility] Comment on above: Performed By: #### L [id number] #### [facility] ([facility]) [address] [address] WBC (Bld) [#/Vol] 7.44 10*3/uL Normal 4.00-10.60 [facility] Comment on above: Performed By: #### L [id number] #### [facility] ([facility]) [address] [address] MAGNESIUMon 01-11-2024 Magnesium [Mass/Vol] 2.3 mg/dL Normal 1.9-2.7 [facility] Comment on above: Performed By: #### L [id number] #### [facility] ([facility]) [address] [place] [address] PHOSPHORUSon 01-11-2024 Magnesium [Mass/Vol] 2.0 mg/dL Low 2.5-5.0 [facility] Comment on above: Performed By: #### L [id number] ####[facility] ([facility])[address] [place] [address] POCT GLUCOSE METER UNSOLICIT ED RESULTSon 01-11-2024 Glucose [Mass/Vol] 151 mg/dL High 70-105 [facility] Comment on above: Order Comment: Waive d Testing in the ED is performed under the ED CLIA certificate #[id number]. Result Comment: rcar ran Performed By: #### L [id number] #### [facility] ([facility]) [address] [place] [address] Glucose [Mass/Vol] 157 mg/dL High 70-105 [facility] Comment on above: Order Comment: Waive d Testing in the ED is performed under the ED CLIA certificate #[id number]. Result Comment: pop wei Performed By: #### L [id number] #### [facility] ([facility]) [address] [place] [address] Glucose [Mass/Vol] 150 mg/dL High 70-105 [facility] Comment on above: Order Comment: Waive d Testing in the ED is performed under the ED CLIA certificate #[id number]. Result Comment: rfog art Performed By: #### L [id number] #### [facility] ([facility]) [address] [place] [address] Glucose [Mass/Vol] 127 mg/dL High 70-105 [facility] Comment on above: Order Comment: Waive d Testing in the ED is performed under the ED CLIA certificate #[id number]. Result Comment: pop wei Performed By: #### L [id number] #### [facility] ([facility]) [address] [place] [address] PROCALCITONIN TESTon 024 PROCALCITONIN IN BLOOD 0.09 ng/mL Normal 0.00-0.10 [facility] Comment on above: Result [...] and initial PCT<0.5ng/mL Performed By: #### L [id number] #### [facility] ([facility]) [address] [place] [address] 30on 01-10-2024 30 Daily Case Managemen t Update Multidisciplinary rounds have been completed. Barriers to Discharge: 01/09- patient came here from [facility] with a complete heart block. (Not [...] PT Recommendations: OT Recommendations: New Consults: Jayden [facility] Chapis 01-10-2024 ANES -- Attestation signed [...] 01/10/24 1300 Procedure: Pacemaker DC new Location: [facility] RESPIRATORY ASSISTANT 1 / [facility] (Cath) Providers: [place] [...] attending and fellow. Additional Equipment Requests Normal [facility] BASIC METABOLIC PANELon 12-22 Anion gap [Moles/Vol] 15 mmol/L Normal 7-20 [facility] Comment on above: Performed By: #### L [id number] #### [facility] ([facility]) [address] [place] [address] Calcium [Mass/Vol] 8.4 mg/dL Low 8.6-10.3 [facility] Comment on above: Performed By: #### L [id number] #### [facility] ([facility]) [address] [place] [address] Chloride [Moles/Vol] 97 mmol/L Low 98-107 [facility] Comment on above: Performed By: #### L [id number] #### [facility] ([facility]) [address] [place] [address] CO2 [Moles/Vol] 21 mmol/L Normal 21-31 [facility] Comment on above: Performed By: #### L [id number] #### [facility] ([facility]) [address] [place] [address] Creatinine [Mass/Vol] 1.12 mg/dL Normal 0.70-1.30 [facility] Comment on above: Performed By: #### L [id number] #### [facility] ([facility]) [address] [place] [address] GLOMERULAR FILTRATION RATE ML/MIN/1.73 SQ M.PREDICTED 66.8 mL/min/1.73m*2 Normal >60.0 [facility] Comment on above: Result Comment: [facility]???s estimated glomerular filtration rate (eGFR) will [...] individuals. Performed By: #### L [id number] #### [facility] ([facility]) [address] [place] [address] Glucose [Mass/Vol] 212 mg/dL High 70-100 [facility] Comment on above: Performed By: #### L [id number] #### [facility] ([facility]) [address] [place] [address] Potassium [Moles/Vol] 3.9 mmol/L Normal 3.5-5.1 [facility] Comment on above: Performed By: #### L [id number] #### [facility] ([facility]) [address] [place] [address] Sodium [Moles/Vol] 129 mmol/L Low 136-145 [facility] Comment on above: Performed By: #### L [id number] #### [facility] ([facility]) [address] [place] [address] Urea nitrogen [Mass/Vol] 56 mg/dL High 7-25 [facility] Comment on above: Performed By: #### L [id number] #### [facility] ([facility]) [address] [place] [address] UREA NITROGEN/CREATININE (MASS RATIO) IN SER/PLAS 50.0 Normal [facility] Comment on above: Performed By: #### L [id number] #### [facility] ([facility]) [address] [place] [address] CBC WITH AUTO DIFFERENTIALon 01-10-2024 Basophils (Bld) [#/Vol] 0.05 10*3/uL Normal 0.00-0.20 [facility] Comment on above: Performed By: #### L [id number] #### [facility] ([facility]) [address] [place] [address] Basophils/100 WBC (Bld) 0.5 % Normal 0.0-1.0 [facility] Comment on above: Performed By: #### L [id number] #### [facility] ([facility]) [address] [place] [address] Eosinophils (Bld) [#/Vol] 0.24 10*3/uL Normal 0.00-0.50 [facility] Comment on above: Performed By: #### L [id number] #### [facility] ([facility]) [address] [place] [address] Eosinophils/100 WBC (Bld) 2.6 % Normal 0.0-6.0 [facility] Comment on above: Performed By: #### L [id number] #### [facility] ([facility]) [address] [place] [address] Erythrocyte distribution width (RBC) [Ratio] 14.7 % Normal 11.5-15.0 [facility] Comment on above: Performed By: #### L [id number] #### [facility] ([facility]) [address] [place] [address] ERYTHROCYTE MEAN CORPUSCULAR HEMOGLOBIN CONCENTRATION (G/DL) BY AUTOMATED 32.4 g/dL Normal 32.0-35.0 [facility] Comment on above: Performed By: #### L [id number] #### [facility] ([facility]) [address] [place] [address] Hematocrit (Bld) [Volume fraction] 35.2 % Low 39.0-55.0 [facility] Comment on above: Performed By: #### L [id number] #### [facility] ([facility]) [address] [place] [address] Hemoglobin (Bld) [Mass/Vol] 11.4 g/dL Low 13.0-17.0 [facility] Comment on above: Performed By: #### L [id number] #### [facility] ([facility]) [address] [place] [address] Immature granulocytes (Bld) [#/Vol] 0.13 10*3/uL Normal 0.00-0.20 [facility] Comment on above: Performed By: #### L [id number] #### [facility] [address] [place] [address] Immature granulocytes/100 WBC (Bld) 1.4 % High 0.0-1.0 [facility] Comment on above: Performed By: #### L [id number] #### [facility]) [address] [place] [address] Lymphocytes (Bld) [#/Vol] 1.41 10*3/uL Normal 1.20-4.00 [facility] Comment on above: Performed By: #### L [id number] #### [facility]) [address] [place] [address] Lymphocytes/100 WBC (Bld) 15.1 % Low 20.0-45.0 [facility] Comment on above: Performed By: #### L [id number] #### [facility] ([facility]) [address] [place] [address] MCH (RBC) [Entitic mass] 28.5 pg Normal 27.0-33.0 [facility] Comment on above: Performed By: #### L [id number] #### [facility] ([facility]) [address] [place] [address] MCV (RBC) [Entitic vol] 88.0 fL Normal 82.0-98.0 [facility] Comment on above: Performed By: #### L [id number] #### [facility] ([facility]) [address] [place] [address] Monocytes (Bld) [#/Vol] 1.04 10*3/uL High 0.10-1.00 [facility] Comment on above: Performed By: #### L [id number] #### [facility] ([facility]) [address] [place] [address] Monocytes/100 WBC (Bld) 11.1 % Normal 5.0-12.0 [facility] Comment on above: Performed By: #### L [id number] #### [facility] ([facility]) [address] [place] [address] Neutrophils (Bld) [#/Vol] 6.49 10*3/uL Normal 1.60-7.60 [facility] Comment on above: Performed By: #### L [id number] #### [facility] ([facility]) [address] [place] [address] Neutrophils/100 WBC (Bld) 69.3 % Normal 40.0-72.0 [facility] Comment on above: Performed By: #### L [id number] #### [facility] [address] [place] [address] NRBC (PER 100 WBCS) BY AUTOMATED COUNT 0.0 % Normal 0 [facility] Comment on above: Performed By: #### L [id number] #### [facility] ([facility]) [address] [place] [address] PLATELETS (10*3/UL) IN BLOOD AUTOMATED COUNT 168 10*3/uL Normal 150-400 [facility] Comment on above: Performed By: #### L [id number] #### [facility] ([facility]) [address] [place] [address] RBC (Bld) [#/Vol] 4.00 10*6/uL Low 4.20-5.70 [facility] Comment on above: Performed By: #### L [id number] #### [facility] ([facility]) [address] [place] [address] WBC (Bld) [#/Vol] 9.36 10*3/uL Normal 4.00-10.60 [facility] Comment on above: Performed By: #### L [id number] #### [facility] ([facility]) [address] [place] [address] CT HEAD WO IV CONTRASTon CT HEAD [...] Orbits are only partially included in the [id number]. Mild mucosal thickening of the paranasal sinuses. [...] Jayro Castro MD. 9 Invalid Interpretation Code [facility] HPon 01-10-2024 HP -- Attestation signed [...] are no changes to the H&P.plan for [facility] today Normal [facility] MAGNESIUMon 01-10-2024 Magnesium [Mass/Vol] 1.7 mg/dL Low 1.9-2.7 [facility] Comment on above: Performed By: #### L [id number] #### [facility] ([facility]) [address] [place] [address] MRSA/MSSA DNA NASALon 2023 MRSA DNA Positive Abnormal Negative [facility] Comment on above: Order Comment: Testi [...] preclude nasal colonization. Performed By: #### L [id number] #### [facility] ([facility]) [address] [place] [address] MSSA DNA Negative Normal Negative [facility] Comment on above: Order Comment: Testi [...] preclude nasal colonization. Performed By: #### L [id number] #### [facility] ([facility]) [address] [place] [address] PHOSPHORUSon 01-10-2024 Magnesium [Mass/Vol] 2.0 mg/dL Low 2.5-5.0 [facility] Comment on above: Performed By: #### L [id number] #### [facility] ([facility]) [address] [place] [address] POCT GLUCOSE METER UNSOLICIT ED RESULTSon 01-10-2024 Glucose [Mass/Vol] 109 mg/dL High 70-105 [facility] Comment on above: Order Comment: Waive d Testing in the ED is performed under the ED CLIA certificate #[id number]. Result Comment: gisselle licona Performed By: #### L [id number] #### [facility] ([facility]) [address] [place] [address] Glucose [Mass/Vol] 172 mg/dL High 70-105 [facility] Comment on above: Order Comment: Waive d Testing in the ED is performed under the ED CLIA certificate #[id number]. Result Comment: [email or web address] Performed By: #### L [id number] #### [facility] ([facility]) [address] [place] [address] Glucose [Mass/Vol] 250 mg/dL High 70-105 [facility] Comment on above: Order Comment: Waive d Testing in the ED is performed under the ED CLIA certificate #[id number]. Result Comment: [email or web address] Performed By: #### L [id number] ####[facility] ([facility])[address] [place] [address] Glucose [Mass/Vol] 241 mg/dL High 70-105 [facility] Comment on above: Order Comment: Waive d Testing in the ED is performed under the ED CLIA certificate #[id number]. Result Comment: gisselle licona Performed By: #### L [id number] ####[facility] ([facility])[address] [place] [address] Glucose [Mass/Vol] 227 mg/dL High 70-105 [facility] Comment on above: Order Comment: Waive d Testing in the ED is performed under the ED CLIA certificate #[id number]. Result Comment: gisselle licona Performed By: #### L [id number] #### [facility] ([facility]) [address] [place] [address] URINALYSISon 01-10-2024 BILIRUBIN, TOTAL PRESENCE IN URINE Negative Normal Negative [facility] Comment on above: Order Comment: Micro scopics not performed on urines with negative chemical reactions unless requested on original order. Performed By: #### L [id number] #### [facility] ([facility]) [address] [place] [address] Clarity (U) Clear Normal Clear [facility] Comment on above: Order Comment: Micro scopics not performed on urines with negative chemical reactions unless requested on original order. Performed By: #### L [id number] #### [facility] ([facility]) [address] [place] [address] Color (U) Straw Abnormal Yellow [facility] Comment on above: Order Comment: Micro scopics not performed on urines with negative chemical reactions unless requested on original order. Performed By: #### L [id number] #### [facility] ([facility]) [address] [place] [address] Glucose (U) [Mass/Vol] Negative Normal Negative [facility] Comment on above: Order Comment: Micro scopics not performed on urines with negative chemical reactions unless requested on original order. Performed By: #### L [id number] #### [facility] ([facility]) [address] [place] [address] HEMOGLOBIN PRESENCE IN URINE Negative Normal Negative [facility] Comment on above: Order Comment: Micro scopics not performed on urines with negative chemical reactions unless requested on original order. Performed By: #### L [id number] #### [facility] ([facility]) [address] [place] [address] Ketones Ql (U) Trace Abnormal Negative [facility] Comment on above: Order Comment: Micro scopics not performed on urines with negative chemical reactions unless requested on original order. Performed By: #### L [id number] #### [facility] ([facility]) [address] [place] [address] LEUKOCYTE ESTERASE PRESENCE IN URINE BY TEST STRIP Negative Normal Negative [facility] Comment on above: Order Comment: Micro scopics not performed on urines with negative chemical reactions unless requested on original order. Performed By: #### L [id number] #### [facility] ([facility]) [address] [place] [address] NITRITE PRESENCE IN URINE Negative Normal Negative [facility] Comment on above: Order Comment: Micro scopics not performed on urines with negative chemical reactions unless requested on original order. Performed By: #### L [id number] #### [facility] ([facility]) [address] [place] [address] pH (U) 7.0 [pH] Normal 5.0-8.0 [facility] Comment on above: Order Comment: Micro scopics not performed on urines with negative chemical reactions unless requested on original order. Performed By: #### L [id number] #### [facility] ([facility]) [address] [place] [address] Protein (U) [Mass/Vol] Negative Normal [facility] Comment on above: Order Comment: Micro scopics not performed on urines with negative chemical reactions unless requested on original order. Performed By: #### L [id number] #### [facility] ([facility]) [address] [place] [address] Specific gravity (U) [Rel density] 1.006 Low 1.015-1.020 [facility] Comment on above: Order Comment: Micro scopics not performed on urines with negative chemical reactions unless requested on original order. Performed By: #### L [id number] #### [facility] ([facility]) [address] [place] [address] 30on 01-09-2024 30 The patient is Moderately Stable - Low risk of patient condition declining or worsening The patient's goals for the shift include The clinical goals for the shift include Over the shift, the patient did not make progress toward the following goals. Normal [facility] APTTon 01-09-2024 ACTIVATED PARTIAL THROMBOPLASTIN TIME IN PPP BY COAGULATION ASSAY 25.9 Seconds Normal 25.0-35.0 [facility] Comment on above: Result Comment: Clin ical significance of the APTT is questionable in the presence of heparin. Performed By: #### L [id number] #### [facility] ([facility]) [address] [place] [address] BASIC METABOLIC PANELon 12-22 Anion gap [Moles/Vol] 12 mmol/L Normal 7-20 [facility] Comment on above: Performed By: #### L [id number] ####[facility] ([facility])[address] [place] [address] Calcium [Mass/Vol] 8.9 mg/dL Normal 8.6-10.3 [facility] Comment on above: Performed By: #### L [id number] ####[facility] ([facility])[address] [place] [address] Chloride [Moles/Vol] 101 mmol/L Normal 98-107 [facility] Comment on above: Performed By: #### L [id number] ####[facility] ([facility])[address] [place] [address] CO2 [Moles/Vol] 27 mmol/L Normal 21-31 [facility] Comment on above: Performed By: #### L [id number] ####[facility] ([facility])[address] [place] [address] Creatinine [Mass/Vol] 1.33 mg/dL High 0.70-1.30 [facility] Comment on above: Performed By: #### L [id number] ####[facility] ([facility])[address] [place] [address] GLOMERULAR FILTRATION RATE ML/MIN/1.73 SQ M.PREDICTED 54.4 mL/min/1.73m*2 Low >60.0 [facility] Comment on above: Result Comment: [facility]???s estimated glomerular filtration rate (eGFR) will [...] of individuals. Performed By: #### L [id number] ####[facility] ([facility])[address] [place] [address] Glucose [Mass/Vol] 181 mg/dL High 70-100 [facility] Comment on above: Performed By: #### L [id number] ####[facility] ([facility])[address] [place] [address] Potassium [Moles/Vol] 4.3 mmol/L Normal 3.5-5.1 [facility] Comment on above: Performed By: #### L [id number] ####[facility] ([facility])[address] [place] [address] Sodium [Moles/Vol] 136 mmol/L Normal 136-145 [facility] Comment on above: Performed By: #### L [id number] ####[facility] ([facility])[address] [place] [address] Urea nitrogen [Mass/Vol] 73 mg/dL High 7-25 [facility] Comment on above: Performed By: #### L [id number] ####[facility] ([facility])[address] [place] [address] UREA NITROGEN/CREATININE (MASS RATIO) IN SER/PLAS 54.9 Normal [facility] Comment on above: Performed By: #### L [id number] ####[facility] ([facility])[address] [place] [address] BLOOD CULTUREon 01-09-2024 Bacteria identified Cx Nom (Bld) No growth at 5 days Normal [facility] Comment on above: Performed By: #### L [id number] ####[facility] ([facility])[address] [place] [address] Order Comment: From a different site than #1. Performed By: #### L [id number] #### [facility] ([facility]) [address] [place] [address] CBC WITH AUTO DIFFERENTIALon 01-09-2024 Basophils (Bld) [#/Vol] 0.03 10*3/uL Normal 0.00-0.20 [facility] Comment on above: Performed By: #### L [id number] #### [facility] ([facility]) [address] [place] [address] Basophils/100 WBC (Bld) 0.2 % Normal 0.0-1.0 [facility] Comment on above: Performed By: #### L [id number] #### [facility] ([facility]) [address] [place] [address] Eosinophils (Bld) [#/Vol] 0.30 10*3/uL Normal 0.00-0.50 [facility] Comment on above: Performed By: #### L [id number] #### [facility] ([facility]) [address] [place] [address] Eosinophils/100 WBC (Bld) 2.5 % Normal 0.0-6.0 [facility] Comment on above: Performed By: #### L [id number] #### [facility] ([facility]) [address] [place] [address] Erythrocyte distribution width (RBC) [Ratio] 14.5 % Normal 11.5-15.0 [facility] Comment on above: Performed By: #### L [id number] #### [facility] ([facility]) [address] [place] [address] ERYTHROCYTE MEAN CORPUSCULAR HEMOGLOBIN CONCENTRATION (G/DL) BY AUTOMATED 33.1 g/dL Normal 32.0-35.0 [facility] Comment on above: Performed By: #### L [id number] #### [facility] ([facility]) [address] [place] [address] Hematocrit (Bld) [Volume fraction] 39.6 % Normal 39.0-55.0 [facility] Comment on above: Performed By: #### L [id number] #### [facility] ([facility]) [address] [place] [address] Hemoglobin (Bld) [Mass/Vol] 13.1 g/dL Normal 13.0-17.0 [facility] Comment on above: Performed By: #### L [id number] #### [facility] ([facility]) [address] [place] [address] Immature granulocytes (Bld) [#/Vol] 0.10 10*3/uL Normal 0.00-0.20 [facility] Comment on above: Performed By: #### L [id number] #### [facility] ([facility]) [address] [place] [address] Immature granulocytes/100 WBC (Bld) 0.8 % Normal 0.0-1.0 [facility] Comment on above: Performed By: #### L [id number] #### [facility] ([facility]) [address] [place] [address] Lymphocytes (Bld) [#/Vol] 1.37 10*3/uL Normal 1.20-4.00 [facility] Comment on above: Performed By: #### L [id number] #### [facility] ([facility]) [address] [place] [address] Lymphocytes/100 WBC (Bld) 11.4 % Low 20.0-45.0 [facility] Comment on above: Performed By: #### L [id number] #### [facility] ([facility]) [address] [place] [address] MCH (RBC) [Entitic mass] 29.0 pg Normal 27.0-33.0 [facility] Comment on above: Performed By: #### L [id number] #### [facility] ([facility]) [address] [place] [address] MCV (RBC) [Entitic vol] 87.6 fL Normal 82.0-98.0 [facility] Comment on above: Performed By: #### L [id number] #### [facility] ([facility]) [address] [place] [address] Monocytes (Bld) [#/Vol] 0.86 10*3/uL Normal 0.10-1.00 [facility] Comment on above: Performed By: #### L [id number] #### [facility] ([facility]) [address] [place] [address] Monocytes/100 WBC (Bld) 7.1 % Normal 5.0-12.0 [facility] Comment on above: Performed By: #### L [id number] #### [facility] ([facility]) [address] [place] [address] Neutrophils (Bld) [#/Vol] 9.41 10*3/uL High 1.60-7.60 [facility] Comment on above: Performed By: #### L [id number] #### [facility] ([facility]) [address] [place] [address] Neutrophils/100 WBC (Bld) 78.0 % High 40.0-72.0 [facility] Comment on above: Performed By: #### L [id number] #### [facility] ([facility]) [address] [place] [address] NRBC (PER 100 WBCS) BY AUTOMATED COUNT 0.0 % Normal 0 [facility] Comment on above: Performed By: #### L [id number] #### [facility] ([facility]) [address] [place] [address] PLATELETS (10*3/UL) IN BLOOD AUTOMATED COUNT 235 10*3/uL Normal 150-400 [facility] Comment on above: Performed By: #### L [id number] #### [facility] ([facility]) [address] [place] [address] RBC (Bld) [#/Vol] 4.52 10*6/uL Normal 4.20-5.70 [facility] Comment on above: Performed By: #### L [id number] #### [facility] ([facility]) [address] [place] [address] WBC (Bld) [#/Vol] 12.07 10*3/uL High 4.00-10.60 [facility] Comment on above: Performed By: #### L [id number] #### [facility]) [address] [place] [address] CONSULTon 01-09-2024 CONSULT -- Attestation signed by [...] 78-year-old man who is transferred from the [facility] for complete heart block. 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 We will check an echocardiogram prior to [...] significant for dementia has been transferred from [facility] due to high degree AV block. The patient is unable to answer questions appropriately due to his dementia so history was only taken by the signout received from [facility]. The patient was noted to have multiple episodes of presyncope over the last few days and today his heart rate was noted to be in 30s upon their initial evaluation. EKG showed a complete A-V dissociation. When he arrived to [facility] MICU, his HR was in low 30s. Dopamine was increased to 10 and started on Isuprel which improved heart rate to mid to high 40s. Patient remained hemodynamically stable. Cardiology ROS: Negative except as mentioned. Past Medical History He has a past medical history of COPD (chronic obstructive pulmonary disease) ([facility]), Seizure ([facility]), and Sleep apnea. Surgical History He has [...] at bedtime. Do (more content not included)... [facility] 01-09-2024 -- Attestation signed by Jermaine [...] 78-year-old man who is transferred from the [facility] for complete heart block. 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 We will check an echocardiogram prior to [...] significant for dementia has been transferred from [facility] due to high degree AV block. The patient is unable to answer questions appropriately due to his dementia so history was only taken by the signout received from [facility]. The patient was noted to have multiple episodes of presyncope over the last few days and today his heart rate was noted to be in 30s upon their initial evaluation. EKG showed a complete A-V dissociation. When he arrived to [facility] MICU, his HR was in low 30s. Dopamine was increased to 10 and started on Isuprel which improved heart rate to mid to high 40s. Patient remained hemodynamically stable. Cardiology ROS: Negative except as mentioned. Past Medical History He has a past medical history of COPD (chronic obstructive pulmonary disease) (CMS/HCC), Seizure ([facility]), and Sleep apnea. Surgical History He has [...] bedtime. Do (more content not included)... Normal [facility] -- Attestation signed by Donnie [...] - 78 y.o. - 1945 N - [id number] [facility] # - [id number] Date of Admission - 01/09/2024 1:24 AM Chief Complaint Third-degree heart block History of Present Illness Clyde Humphrey is a 78-year-old gentleman with past medical history significant for dementia has been transferred from [facility] due to high degree AV block. The patient is unable to answer questions appropriately due to his dementia so history was only taken by the signout received from [facility]. The patient was noted to have multiple episodes of presyncope over the last few days and today his heart rate was noted to be in 30s upon their initial evaluation. EKG showed a complete A-V dissociation after which thick reached out to [facility] cardiology for possible pacemaker placement. Due to significant bradycardia the patient is being transferred to [facility] ICU for close hemodynamic monitoring and [...] injection 5,000 Units, 5,000 Units, subcutaneous, q8h [facility] insulin lispro (HumaLOG) injection 0-5 Units, 0-5 Units, subcutaneous, q6h [facility], Art Suh MD isoproterenol (Isuprel) [...] days L (more content not included)... Normal [facility] MAGNESIUMon 01-09-2024 Magnesium [Mass/Vol] 1.9 mg/dL Normal 1.9-2.7 [facility] Comment on above: Performed By: #### L [id number] ####[facility] ([facility])[address] [place] [address] PHOSPHORUSon 01-09-2024 Magnesium [Mass/Vol] 3.2 mg/dL Normal 2.5-5.0 [facility] Comment on above: Performed By: #### L [id number] ####[facility] ([facility])[address] [place] [address] POCT GLUCOSE METER UNSOLICIT ED RESULTSon 01-09-2024 Glucose [Mass/Vol] 219 mg/dL High 70-105 [facility] Comment on above: Order Comment: Waive d Testing in the ED is performed under the ED CLIA certificate #[id number]. Result Comment: nlad oos Performed By: #### L [id number] #### [facility] ([facility]) [address] [place] [address] Glucose [Mass/Vol] 234 mg/dL High 70-105 [facility] Comment on above: Order Comment: Waive d Testing in the ED is performed under the ED CLIA certificate #[id number]. Result Comment: nlad oos Performed By: #### L [id number] #### [facility] ([facility]) [address] [place] [address] PROTIME-INRon 01-09-2024 INR IN PPP BY COAGULATION ASSAY 0.98 Normal 0.90-1.10 [facility] Comment on above: Result Comment: ACCC [...] CHEST 1995;108:[id number]. Performed By: #### L [id number] ####[facility] ([facility])[address] [place] [address] PROTHROMBIN TIME (PT) IN PPP BY COAGULATION ASSAY 13.0 Seconds Normal 12.3-14.8 [facility] Comment on above: Performed By: #### L [id number] ####[facility] ([facility])[address] [place] [address] TROPONIN Ion 01-09-2024 Troponin I.cardiac [Mass/Vol] 0.06 ng/mL High 0.00-0.04 [facility] Comment on above: Performed By: #### L [id number] ####[facility] ([facility])[address] [place] [address] Insurance Correspondenceon 1 05-25-2022 Insurance Correspondence [id number]. 00TIFF Normal [facility] Coding Queryon 02-17-2023 Coding Query Normal [facility] Discharge Instructionson Discharge Instructions [id number]. 00CD:127 Normal [facility] Transfer Documentson 023 Transfer Documents [id number]#1. 00CD:127 Normal [facility] Discharge Note-Nursingon Discharge Note-Nursing Normal [facility] Interdisciplinary Note - Santosh e Manageron 01-23-2023 Interdisciplinary Note - Computer Clerk Normal [facility] Comment on above: Result Comment: Elec tronically Signed By: Norma Garcia RN\.br\Date and Time Signed: 01/23/23 16:29 EDT Progress Note-Physicianon Progress Note-Physician Normal [facility] Comment on above: Result Comment: Elec tronically Signed By: New Johnson DO.br\Date and Time Signed: 01/23/23 09:50 EDT Auto Diffon 01-22-2023 Basophils/100 WBC (Bld) 0.7 % Normal 0.0-2.0 [facility] Comment on above: Order Comment: Order Added by Discern Expert. Performed By: #### 2 [id number], [id number], [id number], [id number] ####[address] [address] Basophils/Leukocytes Auto (Bld) [Pure # fraction] 0.1 E9/L Normal 0.0-0.2 [facility] Comment on above: Order Comment: Order Added by Discern Expert. Performed By: #### 2 [id number], [id number], [id number], [id number] ####[address] [address] Eosinophils/100 WBC (Bld) 9.3 % High 0.0-8.0 [facility] Comment on above: Order Comment: Order Added by Discern Expert. Performed By: #### 2 [id number], [id number], [id number], [id number] ####[address] [address] Eosinophils/Leukocytes Auto (Bld) [Pure # fraction] 0.8 E9/L High 0.0-0.5 [facility] Comment on above: Order Comment: Order Added by Discern Expert. Performed By: #### 2 [id number], [id number], [id number], [id number] ####[address] [address] Lymphocytes/100 WBC (Bld) 17.2 % Normal 14.0-50.0 [facility] Comment on above: Order Comment: Order Added by Discern Expert. Performed By: #### 2 [id number], [id number], [id number], [id number] ####[address] [address] Lymphocytes/Leukocytes Auto (Bld) [Pure # fraction] 1.4 E9/L Normal 1.0-4.0 [facility] Comment on above: Order Comment: Order Added by Discern Expert. Performed By: #### 2 [id number], [id number], [id number], [id number] ####[facility] [id number] [place] [address] Monocytes/100 WBC (Bld) 10.0 % Normal 4.0-14.0 [facility] Comment on above: Order Comment: Order Added by Discern Expert. Performed By: #### 2 [id number], [id number], [id number], [id number] ####[address] [place] [address] Monocytes/Leukocytes Auto (Bld) [Pure # fraction] 0.8 E9/L Normal 0.2-1.0 [facility] Comment on above: Order Comment: Order Added by Discern Expert. Performed By: #### 2 [id number], [id number], [id number], [id number] ####[address] [address] Neutrophils/100 WBC (Bld) 62.8 % Normal 36.0-75.0 [facility] Comment on above: Order Comment: Order Added by Discern Expert. Performed By: #### 2 [id number], [id number], [id number], [id number] ####[address] [address] Neutrophils/Leukocytes Auto (Bld) [Pure # fraction] 5.2 E9/L Normal 2.0-7.5 [facility] Comment on above: Order Comment: Order Added by Discern Expert. Performed By: #### 2 808708, 75077179, 5868651, 4346518 ####[address] [place] [address] CBC w/ Auto Diffon 3 Erythrocyte distribution width (RBC) [Ratio] 15.2 % High 10.9-14.2 [facility] Comment on above: Performed By: #### 2 695749, 65815078, 0933063, 9263950 ####[address] [place] [address] Hematocrit (Bld) [Volume fraction] 43.1 % Normal 37.7-49.0 [facility] Comment on above: Performed By: #### 2 894204, 19134292, 1783461, 9552974 ####[address] [address] Hemoglobin (Bld) [Mass/Vol] 14.6 g/dL Normal 13.5-17.5 [facility] Comment on above: Performed By: #### 2 829959, 29325014, 3684077, 5074154 ####[address] [address] MCH (RBC) [Entitic mass] 28.1 pg Normal 27.0-34.0 [facility] Comment on above: Performed By: #### 2 809929, 69433213, 6325193, 4735850 ####[address] [address] MCHC (RBC) [Mass/Vol] 33.8 g/dL Normal 31.4-36.0 [facility] Comment on above: Performed By: #### 2 855717, 35710001, 4550581, 6102493 ####[address] [address] MCV (RBC) [Entitic vol] 83.2 fL Normal 80.0-100.0 [facility] Comment on above: Performed By: #### 2 314414, 70873842, 2774780, 7061322 ####[address] [address] Platelet mean volume (Bld) [Entitic vol] 8.6 fL Normal 6.4-10.8 [facility] Comment on above: Performed By: #### 2 702462, 34850098, 7565790, 9105931 ####[address] [address] Platelets (Bld) [#/Vol] 221.0 E9/L Normal 150.0-500.0 [facility] Comment on above: Performed By: #### 2 556223, 50663865, 7101571, 2152030 ####[facility] [address] [place] [address] RBC (Bld) [#/Vol] 5.2 E12/L Normal 4.3-5.9 [facility] Comment on above: Performed By: #### 2 868954, 74922134, 2057453, 3591604 ####[facility] [address] [place] [address] WBC corrected for nucl RBC Auto (Bld) [#/Vol] 8.3 E9/L Normal 4.0-11.0 [facility] Comment on above: Performed By: #### 2 504484, 13856903, 4185070, 4579577 ####[facility] [address] [place] [address] CHEMISTRYOrdered By: Lab ROP User on 01-22-2023 Glucose [Mass/Vol] 121 mg/dL High 55 - 99 mg/dL [facility] POC Subsection Comment on above: Result Comment: Gareth guerrero RN/ POC Device SN [id number] Invalid Interpretation Code [facility] POC Subsection POC User ID [id number] Invalid Interpretation Code [facility] POC Subsection POC Username LATONIA MALHOTRA Invalid Interpretation Code [facility] POC Subsection CHEMISTRYOrdered By: SYSTEM SYSTEM on [...] 56 mL/min/1.73 m2 Low >=59mL/min/ 1.73 m2 [facility] Chem S Globulin (S) [Mass/Vol] 3.6 g/dL [...] 01-22-2023 Albumin [Mass/Vol] 3.7 g/dL Normal 3.3-5.0 [facility] Comment on above: Performed By: #### 2 825216, 87643761, 0735390, 4130307 ####[facility] [address] [place] [address] Albumin/Globulin (S) [Mass conc ratio] 1.0 Low 1.1-2.2 [facility] Comment on above: Performed By: #### 2 610265, 77044944, 5112487, 1796324 ####[facility] [address] [place] [address] ALP [Catalytic activity/Vol] 47 Int._Unit/L Normal 21-98 [facility] Comment on above: Performed By: #### 2 667182, 44525690, 6104190, 7509456 ####[facility] [address] [place] [address] ALT No additional P-5'-P [Catalytic activity/Vol] 21 Int._Unit/L Normal 6-46 [facility] Comment on above: Performed By: #### 2 629422, 95554547, 8191098, 8049597 ####[facility] [address] [place] [address] Anion gap [Moles/Vol] 15 mmol/L Normal 6-16 [facility] Comment on above: Performed By: #### 2 111472, 30295131, 5980325, 5205132 ####[facility] [address] [place] [address] AST [Catalytic activity/Vol] 21 Int._Unit/L Normal 5-43 [facility] Comment on above: Performed By: #### 2 193616, 04185811, 0805041, 0124810 ####[facility] [address] [place] [address] Bilirubin [Mass/Vol] 0.8 mg/dL Normal 0.0-1.1 [facility] Comment on above: Performed By: #### 2 802351, 24741331, 9064712, 4275830 ####[facility] [address] [place] [address] Calcium [Mass/Vol] 9.6 mg/dL Normal 8.9-11.1 [facility] Comment on above: Performed By: #### 2 308772, 86900585, 5227710, 6908756 ####[facility] [address] [place] [address] Chloride [Moles/Vol] 97 mmol/L Low 101-111 [facility] Comment on above: Performed By: #### 2 548485, 45478942, 7597299, 8488164 ####[facility] [address] [place] [address] CO2 [Moles/Vol] 30 mmol/L Normal 21-31 [facility] Comment on above: Performed By: #### 2 177118, 36569286, 0894420, 3636720 ####[facility] [address] [place] [address] Creatinine [Mass/Vol] 1.3 mg/dL Normal 0.5-1.3 [facility] Comment on above: Performed By: #### 2 062734, 25242911, 5692735, 9061053 ####[facility] [address] [place] [address] Globulin (S) [Mass/Vol] 3.6 g/dL Normal 1.4-4.0 [facility] Comment on above: Performed By: #### 2 237892, 98609585, 2022029, 0344114 ####[facility] [address] [place] [address] Glucose [Mass/Vol] 124 mg/dL Normal 55-199 [facility] Comment on above: Result Comment: If t his glucose result represents a fasting glucose, interpretation should refer to the following reference range: 55-99 mg/dL Performed By: #### 2 373004, 99283474, 2531265, 5654653 ####[facility] [address] [place] [address] Potassium [Moles/Vol] 4.0 mmol/L Normal 3.5-5.3 [facility] Comment on above: Performed By: #### 2 220776, 25348777, 5546857, 3253683 ####[facility] [address] [place] [address] Protein [Mass/Vol] 7.3 g/dL Normal 6.0-7.8 [facility] Comment on above: Performed By: #### 2 288335, 54030246, 3289072, 8584467 ####[facility] [address] [place] [address] Sodium [Moles/Vol] 138 mmol/L Normal 135-145 [facility] Comment on above: Performed By: #### 2 198668, 30376356, 4275796, 6273666 ####[facility] [address] [place] [address] Urea nitrogen [Mass/Vol] 42 mg/dL High 5-21 [facility] Comment on above: Performed By: #### 2 930494, 27938309, 8897808, 0696106 ####[facility] [address] [place] [address] Urea nitrogen/Creatinine [Mass ratio] 32 No Units High 10-20 [facility] Comment on above: Performed By: #### 2 623649, 42517091, 3353189, 0219121 ####[facility] [address] [place] [address] Capillary Glucose POCon Glucose [Mass/Vol] 121 mg/dL High 55-99 [facility] Comment on above: Result Comment: Gareth guerrero RN/ Performed By: #### 2 66360701 ####[facility] [address] [place] [address] Coding Queryon 01-22-2023 Coding Query Normal [facility] HEMATOLOGYOrdered By: SYSTEM SYSTEM on 01-22-2023 Basophils/100 [...] Correspondence Off ice 01-22-2023 Insurance Correspondence Office [id number]#[id number] 0CD:127 Normal [facility] Interdisciplinary Note - Santosh e Manageron 01-22-2023 Interdisciplinary Note - Computer Clerk Normal [facility] Comment on above: Result Comment: Elec tronically Signed By: Natalie Grant\.br\Date and Time Signed: 01/22/23 11:13 EDT Interdisciplinary Note - Murphy n 01-22-2023 Interdisciplinary Note - OT Normal [facility] Interdisciplinary Note - PTo n 01-22-2023 Interdisciplinary Note - PT Normal [facility] Message from Medicareon Message from Medicare [id number]#1.0 0CD:127 Normal [facility] Progress Note-Physicianon Progress Note-Physician Normal [facility] Comment on above: Result Comment: Elec tronically Signed By: New Johnson DO\Date and Time Signed: 01/22/23 14:15 EDT eGFRon 01-22-2023 GFR/1.73 sq M.predicted among non-blacks MDRD (S/P/Bld) [Vol rate/Area] 56 mL/min/1.73 m2 Low >=59 [facility] Comment on above: Order Comment: Order added by Discern Expert. Result Comment: Interventional Nurse earnest kidney disease could be indicated at eGFR's of less than 60 mL/min/1.73m2. Kidney failure is indicated at less than 15 mL/min/1.73m2. Performed By: #### 2 316146, 64537207, 6757728, 7291012 ####[facility] [address] [place] [address] Auto Diffon 01-21-2023 Basophils/100 WBC (Bld) 0.9 % Normal 0.0-2.0 [facility] Comment on above: Order Comment: Order Added by Discern Expert. Performed By: #### 2 295318, 1380603, 10871710, 04826111, 4238474, 5610326 ####[facility] [address] [place] [address] Basophils/Leukocytes Auto (Bld) [Pure # fraction] 0.1 E9/L Normal 0.0-0.2 [facility] Comment on above: Order Comment: Order Added by Discern Expert. Performed By: #### 2 386068, 0780910, 35917223, 37526694, 8451675, 4362588 ####[address] [place] [address] Eosinophils/100 WBC (Bld) 3.3 % Normal 0.0-8.0 [facility] Comment on above: Order Comment: Order Added by Discern Expert. Performed By: #### 2 378940, 7598666, 11733615, 30967005, 1701905, 6395030 ####[address] [place] [address] Eosinophils/Leukocytes Auto (Bld) [Pure # fraction] 0.4 E9/L Normal 0.0-0.5 [facility] Comment on above: Order Comment: Order Added by Discern Expert. Performed By: #### 2 608380, 6052897, 85402759, 63428584, 2366419, 8619072 ####[address] [address] Lymphocytes/100 WBC (Bld) 10.4 % Low 14.0-50.0 [facility] Comment on above: Order Comment: Order Added by Discern Expert. Performed By: #### 2 644160, 3634940, 37431970, 25501268, 1221422, 3654675 ####[facility] [address] [place] [address] Lymphocytes/Leukocytes Auto (Bld) [Pure # fraction] 1.2 E9/L Normal 1.0-4.0 [facility] Comment on above: Order Comment: Order Added by Discern Expert. Performed By: #### 2 515057, 0032123, 21098521, 70556372, 5695742, 1500458 ####[address] [place] [address] Monocytes/100 WBC (Bld) 7.4 % Normal 4.0-14.0 [facility] Comment on above: Order Comment: Order Added by Discern Expert. Performed By: #### 2 223586, 4861523, 24590313, 49880837, 7003626, 8962719 ####[facility] [address] [place] [address] Monocytes/Leukocytes Auto (Bld) [Pure # fraction] 0.9 E9/L Normal 0.2-1.0 [facility] Comment on above: Order Comment: Order Added by Discern Expert. Performed By: #### 2 489059, 8280741, 21653531, 31546651, 2781477, 7874753 ####[facility] [address] [place] [address] Neutrophils/100 WBC (Bld) 78.0 % High 36.0-75.0 [facility] Comment on above: Order Comment: Order Added by Discern Expert. Performed By: #### 2 385315, 7791252, 09817844, 41954337, 0328297, 8012631 ####[facility] [address] [place] [address] Neutrophils/Leukocytes Auto (Bld) [Pure # fraction] 9.1 E9/L High 2.0-7.5 [facility] Comment on above: Order Comment: Order Added by Discern Expert. Performed By: #### 2 149316, 7626980, 08545189, 14807226, 6047316, 4711172 ####[facility] [address] [place] [address] BMPon 01-21-2023 Creatinine [Mass/Vol] 1.2 mg/dL Normal 0.5-1.3 [facility] Comment on above: Performed By: #### 2 950843, 5429171, 49159785, 78835321, 7424594, 6707965 ####[facility] [address] [place] [address] Urea nitrogen [Mass/Vol] 38 mg/dL High 5-21 [facility] Comment on above: Performed By: #### 2 552143, 7956380, 69943265, 33359481, 0938968, 3473502 ####[facility] [address] [place] [address] Urea nitrogen/Creatinine [Mass ratio] 32 No Units High 10-20 [facility] Comment on above: Performed By: #### 2 994030, 8683318, 36770467, 38753427, 6154616, 9949203 ####[facility] [address] [place] [address] Anion gap [Moles/Vol] 14 mmol/L Normal 6-16 [facility] Comment on above: Performed By: #### 2 312590, 9785373, 07465068, 88722388, 6640666, 2286337 ####[facility] [address] [place] [address] Calcium [Mass/Vol] 9.9 mg/dL Normal 8.9-11.1 [facility] Comment on above: Performed By: #### 2 836806, 6168136, 63470806, 18102343, 8105782, 7161961 ####[facility] [address] [place] [address] Chloride [Moles/Vol] 95 mmol/L Low 101-111 [facility] Comment on above: Performed By: #### 2 081310, 3387225, 22880027, 71318300, 5979302, 6664033 ####[facility] [address] [place] [address] CO2 [Moles/Vol] 31 mmol/L Normal 21-31 [facility] Comment on above: Performed By: #### 2 345046, 9074220, 14165390, 54212631, 6601329, 8949399 ####[facility] [address] [place] [address] Glucose [Mass/Vol] 124 mg/dL Normal 55-199 [facility] Comment on above: Result Comment: If t his glucose result represents a fasting glucose, interpretation should refer to the following reference range: 55-99 mg/dL Performed By: #### 2 554708, 4131943, 43255875, 49754203, 3358385, 3551777 ####[facility] [address] [place] [address] Potassium [Moles/Vol] 4.3 mmol/L Normal 3.5-5.3 [facility] Comment on above: Performed By: #### 2 900866, 0662314, 53788059, 55906166, 8709361, 5609350 ####[facility] [address] [place] [address] Sodium [Moles/Vol] 136 mmol/L Normal 135-145 [facility] Comment on above: Performed By: #### 2 393384, 1778996, 31726002, 54893259, 1130874, 7310219 ####[address] [address] CBC w/ Auto Diffon 3 Erythrocyte distribution width (RBC) [Ratio] 15.4 % High 10.9-14.2 [facility] Comment on above: Performed By: #### 2 885770, 2179826, 71836876, 88036436, 0882039, 2365392 ####[address] [place] [address] Hematocrit (Bld) [Volume fraction] 42.5 % Normal 37.7-49.0 [facility] Comment on above: Performed By: #### 2 060556, 9509321, 87374620, 80981033, 4686946, 8740270 ####[facility] [address] [place] [address] Hemoglobin (Bld) [Mass/Vol] 13.9 g/dL Normal 13.5-17.5 [facility] Comment on above: Performed By: #### 2 941210, 0435465, 09476418, 35299287, 4674917, 2951206 ####[facility] [address] [place] [address] MCH (RBC) [Entitic mass] 27.3 pg Normal 27.0-34.0 [facility] Comment on above: Performed By: #### 2 205406, 8519518, 48793060, 15189878, 4280526, 3283696 ####[address] [address] MCHC (RBC) [Mass/Vol] 32.7 g/dL Normal 31.4-36.0 [facility] Comment on above: Performed By: #### 2 605059, 1562808, 44323885, 55668618, 1687172, 6418739 ####[address] [address] MCV (RBC) [Entitic vol] 83.4 fL Normal 80.0-100.0 [facility] Comment on above: Performed By: #### 2 968910, 2226923, 00627366, 43600525, 1451763, 3072919 ####[facility] [address] [place] [address] Platelet mean volume (Bld) [Entitic vol] 8.6 fL Normal 6.4-10.8 [facility] Comment on above: Performed By: #### 2 040789, 4986551, 05959626, 23309425, 8494883, 6673690 ####[address] [address] Platelets (Bld) [#/Vol] 252.0 E9/L Normal 150.0-500.0 [facility] Comment on above: Performed By: #### 2 635710, 6481451, 70507379, 12233714, 6537460, 6432616 ####[address] [address] RBC (Bld) [#/Vol] 5.1 E12/L Normal 4.3-5.9 [facility] Comment on above: Performed By: #### 2 717168, 2494697, 05352701, 94148492, 8903944, 3637504 ####[facility] [address] [place] [address] WBC corrected for nucl RBC Auto (Bld) [#/Vol] 11.6 E9/L High 4.0-11.0 [facility] Comment on above: Performed By: #### 2 257425, 3206127, 66120658, 31409463, 5899028, 0655545 ####[facility] [address] [place] [address] CHEMISTRYOrdered By: SYSTEM SYSTEM on 01-21-2023 Troponin [...] 62 mL/min/1.73 m2 Normal >=59mL/min/ 1.73 m2 [facility] Chem S Globulin (S) [Mass/Vol] 3.8 g/dL [...] Treatmenton 12-24 Consent for Treatment [id number]#1.0 0CD:127 Normal [facility] ED Clinical Summaryon 2022 ED Clinical Summary Normal [facility] ED Note-Physicianon 01-22-20 23 ED Note-Physician Normal [facility] Comment on above: Result Comment: Elec tronically Signed By: Gustavo Yusuf DO.br\Date and Time Signed: 01/21/23 19:26 EDT ED Patient Education Noteon 01-21-2023 ED Patient Education Note Normal [facility] ED Patient Summaryon 023 ED Patient Summary Normal [facility] HEMATOLOGYOrdered By: SYSTEM SYSTEM on 01-21-2023 Basophils/100 [...] 8.6 fL Normal 6.4 - 10.8 fL [facility] HemeAutoSS Platelets (Bld) [#/Vol] 252.0 E9/L Normal 150. 0 - 500.0 E9/L [facility] HemeAutoSS RBC (Bld) [#/Vol] 5.1 E12/L Normal 4.3 - 5.9 E12/L [facility] HemeAutoSS WBC corrected for nucl RBC Auto (Bld) [#/Vol] 11.6 E9/L High 4.0 - 11.0 E9/L [facility] HemeAutoSS Hep Func Panelon 01-21-2023 Bilirubin.direct [Mass/Vol] 0.1 mg/dL Normal 0.1-0.4 [facility] Comment on above: Performed By: #### 2 478461, 0658971, 49962674, 59478773, 4262451, 3375608 ####[facility] [address] [place] [address] Bilirubin.indirect [Mass or moles/Vol] 0.8 mg/dL Normal 0.1-0.9 [facility] Comment on above: Performed By: #### 2 360375, 7002283, 17531766, 94227633, 1214949, 9693965 ####[facility] [address] [place] [address] Albumin [Mass/Vol] 3.9 g/dL Normal 3.3-5.0 [facility] Comment on above: Performed By: #### 2 373969, 9357278, 49326852, 21120934, 6795611, 3604729 ####[facility] [address] [place] [address] Albumin/Globulin (S) [Mass conc ratio] 1.0 Low 1.1-2.2 [facility] Comment on above: Performed By: #### 2 640237, 9710123, 56343441, 26313993, 0000683, 2601699 ####[facility] [address] [place] [address] ALP [Catalytic activity/Vol] 50 Int._Unit/L Normal 21-98 [facility] Comment on above: Performed By: #### 2 239221, 3533710, 04215007, 07687801, 6855298, 0222329 ####[facility] [address] [place] [address] ALT No additional P-5'-P [Catalytic activity/Vol] 23 Int._Unit/L Normal 6-46 [facility] Comment on above: Performed By: #### 2 431623, 1218716, 62192715, 85531611, 7332669, 0447406 ####[facility] [address] [place] [address] AST [Catalytic activity/Vol] 22 Int._Unit/L Normal 5-43 [facility] Comment on above: Performed By: #### 2 822810, 4459247, 34348066, 96543309, 5668466, 2149409 ####[facility] [address] [place] [address] Bilirubin [Mass/Vol] 0.9 mg/dL Normal 0.0-1.1 [facility] Comment on above: Performed By: #### 2 255507, 0152902, 14393723, 31949629, 7371503, 8003786 ####[facility] [address] [place] [address] Globulin (S) [Mass/Vol] 3.8 g/dL Normal 1.4-4.0 [facility] Comment on above: Performed By: #### 2 943983, 1239011, 35672966, 38652025, 6038251, 8400982 ####[facility] [address] [place] [address] Protein [Mass/Vol] 7.7 g/dL Normal 6.0-7.8 [facility] Comment on above: Performed By: #### 2 261272, 4267913, 52672403, 72763106, 8333345, 0808419 ####[facility] [address] [place] [address] Mcc Recordson 01-21 [facility] Records [id number]#1. 00CD:127 Normal [facility] Troponin 0 Hr.on 01-21-2023 Troponin I.cardiac [Mass/Vol] 25.50 pg/mL Normal 15.90-38.40 [facility] Comment on above: Result Comment: The 95% CI (Confidence Interval) PPV (Positive Predictive Value) for myocardial infarction in females is 38 pg/mL, in males 51 pg/mL. The results should be used in conjunction with clinical conditions of myocardial infarction.(Oxigene High Sensitivity Troponin I Instructions For Use, [employer] December 2017) Performed By: #### 2 844073, 6253929, 11653085, 51469995, 4337646, 1330225 ####[address] [address] Troponin 3 Hr.on 01-21-2023 Troponin I.cardiac [Mass/Vol] 23.90 pg/mL Normal 15.90-38.40 [facility] Comment on above: Result Comment: The 95% CI (Confidence Interval) PPV (Positive Predictive Value) for myocardial infarction in females is 38 pg/mL, in males 51 pg/mL. The results should be used in conjunction with clinical conditions of myocardial infarction.(Oxigene High Sensitivity Troponin I Instructions For Use, [employer] December 2017) Performed By: #### 1 8470317 ####[facility] [address] [place] [address] UA With Cult Reflexon 2022 Bilirubin Ql (U) Negative Normal Negative [facility] Comment on above: Performed By: #### 1 7592253 ####[facility] [address] [place] [address] Clarity (U) CLEAR Normal Clear [facility] Comment on above: Performed By: #### 1 9569914 ####[facility] [address] [place] [address] Color (U) STRAW Abnormal Yellow [facility] Comment on above: Performed By: #### 1 4623744 ####[facility] [place] [address] Epithelial cells.squamous LM.HPF (Urine sed) [#/Area] 0-2 Normal 0-2 [facility] Comment on above: Performed By: #### 1 6326767 ####[address] [address] Glucose Test strip (U) [Mass/Vol] Negative Normal Negative [facility] Comment on above: Performed By: #### 1 3766780 ####[address] [address] Hemoglobin Ql (U) Negative Normal Negative [facility] Comment on above: Performed By: #### 1 6016024 ####[address] [address] Ketones (U) [Mass/Vol] Negative Normal Negative [facility] Comment on above: Performed By: #### 1 2938521 ####[address] [address] [place].plasma/[place].R BC (Bld) [Mass ratio] 0-3 Normal 0-3 [facility] Comment on above: Performed By: #### 1 1544500 ####[address] [address] Nitrite Ql (U) Negative Normal Negative [facility] Comment on above: Performed By: #### 1 2296544 ####[address] [address] pH (U) 6.0 [pH] Invalid Interpretation Code 5.0-9.0 [facility] Comment on above: Performed By: #### 1 6659445 ####[address] [address] Protein (U) [Mass/Vol] Negative Normal Negative [facility] Comment on above: Performed By: #### 1 3574024 ####[address] [address] Specific gravity (U) [Rel density] 1.010 Invalid Interpretation Code 1.005-1.030 [facility] Comment on above: Performed By: #### 1 4138515 ####[facility] [address] [place] [address] Type of Urine collection method Clean Catch Normal [facility] Comment on above: Performed By: #### 1 8779696 ####[facility] [address] [place] [address] Urobilinogen Qn (U) 0.2 {Lei'U}/dL Normal 0.0-1.0 [facility] Comment on above: Performed By: #### 1 4045463 ####[facility] [address] [place] [address] WBC Auto Ql (U) Negative Normal Negative [facility] Comment on above: Performed By: #### 1 [id number] ####[facility] [address] [place] [address] WBC LM.HPF (Urine sed) [#/Area] 0-5 Normal 0-5 [facility] Comment on above: Performed By: #### 1 [id number] ####[facility] [address] [place] [address] URINALYSISOrdered By: Karen Vergara on 01-21-2023 Bilirubin [...] PM) Normal Negative [facility] UA Auto SS [place].plasma/[place].R BC (Bld) [Mass ratio] 0-3 /HPF Normal [...] [facility] UA Auto SS Urobilinogen Qn (U) 0.2302118 {Lei'U}/dL Normal 0.0 - 1.0 EU/dL [facility] [...] [Vol rate/Area] 62 mL/min/1.73 m2 Normal >=59 [facility] Comment on above: Order Comment: Order added by Discern Expert. Result Comment: Interventional Nurse earnest kidney disease could be indicated at eGFR's of less than 60 mL/min/1.73m2. Kidney failure is indicated at less than 15 mL/min/1.73m2. Performed By: #### 2 991106, 4366514, 50026038, 92279243, 7342911, 4388736 ####[facility] [address] [place] [address] Discharge Instructionson Discharge Instructions [id number]#1.0 0CD:127 Normal [facility] Capillary Glucose POCon 12-23 Glucose [Mass/Vol] 117 mg/dL High 55-99 [facility] Comment on above: Result Comment: Yazmin bri Meter Performed By: #### 2 [id number] ####[facility] [address] [place] [address] Family Medicine Office/Clini c Noteon 01-15-2023 Family Medicine Office/Clinic Note Normal [facility] Comment on above: Result Comment: Elec tronically Signed By: SHAISTA POTTS, Dennise.br\Date and Time Signed: 01/15/23 16:46 EDT Capillary Glucose POCon 12-23 Glucose [Mass/Vol] 121 mg/dL High 55-99 [facility] Comment on above: Result Comment: Yazmin bri Meter Performed By: #### 2 [id number] ####[facility] [address] [place] [address] Capillary Glucose POCon 12-23 Glucose [Mass/Vol] 127 mg/dL High 55-99 [facility] Comment on above: Result Comment: Yazmin bri Meter Performed By: #### 2 [id number] ####[facility] [address] [place] [address] Capillary Glucose POCon 12-22 Glucose [Mass/Vol] 104 mg/dL High 55-99 [facility] Comment on above: Result Comment: Yazmin bri Meter Performed By: #### 2 [id number] ####[facility] [address] [place] [address] Capillary Glucose POCon 12-22 Glucose [Mass/Vol] 121 mg/dL High 55-99 [facility] Comment on above: Result Comment: Yazmin bri Meter Performed By: #### 2 [id number] ####[facility] [address] [place] [address] Capillary Glucose POCon 12-22 Glucose [Mass/Vol] 110 mg/dL High 55-99 [facility] Comment on above: Result Comment: Yazmin bri Meter Performed By: #### 2 [id number] ####[facility] [address] [place] [address] Capillary Glucose POCon 12-22 Glucose [Mass/Vol] 119 mg/dL High 55-99 [facility] Comment on above: Result Comment: Yazmin bri Meter Performed By: #### 2 [id number] ####[facility] [address] [place] [address] Capillary Glucose POCon 12-22 Glucose [Mass/Vol] 141 mg/dL High 55-99 [facility] Comment on above: Result Comment: Yazmin bri Meter Performed By: #### 2 [id number] ####[facility] [address] [place] [address] Capillary Glucose POCon 12-22 Glucose [Mass/Vol] 104 mg/dL [facility] 55-99 [facility] Comment on above: Result Comment: Yazmin bri Meter Performed By: #### 2 [id number] ####[facility] [address] [place] [address] BMPon 12-30-2022 Calcium [Mass/Vol] 9.1 mg/dL Normal 8.9-11.1 [facility] Comment on above: Performed By: #### 7 [id number], 3589095, 19025966 ####[facility] [address] [place] [address] Anion gap [Moles/Vol] 18 mmol/L High 6-16 [facility] Comment on above: Performed By: #### 7 [id number], 8822139, 48513725 ####[facility] [address] [place] [address] Chloride [Moles/Vol] 91 mmol/L Low 101-111 [facility] Comment on above: Performed By: #### 7 [id number], 4504523, 98264945 ####[facility] [address] [place] [address] CO2 [Moles/Vol] 30 mmol/L Normal 21-31 [facility] Comment on above: Performed By: #### 7 59577386, 4215719, 18887642 ####[facility] [address] [place] [address] Creatinine [Mass/Vol] 1.3 mg/dL Normal 0.5-1.3 [facility] Comment on above: Performed By: #### 7 98540762, 0019666, 59997542 ####[facility] [address] [place] [address] Glucose [Mass/Vol] 171 mg/dL Normal 55-199 [facility] Comment on above: Result Comment: If t his glucose result represents a fasting glucose, interpretation should refer to the following reference range: 55-99 mg/dL Performed By: #### 7 [id number], 3698672, 74991876 ####[facility] [address] [place] [address] Potassium [Moles/Vol] 4.2 mmol/L Normal 3.5-5.3 [facility] Comment on above: Performed By: #### 7 [id number], 3761532, 16655422 ####[facility] [address] [place] [address] Sodium [Moles/Vol] 135 mmol/L Normal 135-145 [facility] Comment on above: Performed By: #### 7 86870806, 7557145, 64814021 ####[facility] [address] [place] [address] Urea nitrogen [Mass/Vol] 36 mg/dL High 5-21 [facility] Comment on above: Performed By: #### 7 77691633, 8132057, 49262513 ####[facility] [address] [place] [address] Urea nitrogen/Creatinine [Mass ratio] 28 No Units High 10-20 [facility] Comment on above: Performed By: #### 7 [id number], 1222342, 21419094 ####[facility] [address] [place] [address] IwsB3ylg 08-09-2023 HbA1c (Bld) [Mass fraction] 6.9 % High <=5.9 [facility] Comment on above: Performed By: #### 7 [id number], 9735394, 15719729 ####[facility] [address] [place] [address] eGFRon 12-30-2022 GFR/1.73 sq M.predicted among non-blacks MDRD (S/P/Bld) [Vol rate/Area] 56 mL/min/1.73 m2 Low >=59 [facility] Comment on above: Order Comment: Order added by Discern Expert. Result Comment: Interventional Nurse earnest kidney disease could be indicated at eGFR's of less than 60 mL/min/1.73m2. Kidney failure is indicated at less than 15 mL/min/1.73m2. Performed By: #### 7 [id number], 3826585, 58765555 ####[facility] [address] [place] [address] Capillary Glucose POCon 08-0 Glucose [Mass/Vol] 141 mg/dL High 55-99 [facility] Comment on above: Result Comment: Yazmin bri Meter Performed By: #### 2 [id number] ####[facility] [address] [place] [address] Capillary Glucose POCon 0 Glucose [Mass/Vol] 101 mg/dL High 55-99 [facility] Comment on above: Result Comment: Yazmin bri Meter Performed By: #### 2 [id number] ####[facility] [address] [place] [address] C Blood Charcoalon 3 Blood Culture Charcoal Normal [facility] Comment on above: Performed By: #### 1 [id number] ####[facility] [address] [place] [address] Capillary Glucose POCon 08-0 Glucose [Mass/Vol] 135 mg/dL High 55-99 [facility] Comment on above: Result Comment: Yazmin bri Meter Performed By: #### 2 [id number] ####[facility] [address] [place] [address] Capillary Glucose POCon 0 Glucose [Mass/Vol] 110 mg/dL High 55-99 [facility] Comment on above: Result Comment: Yazmin bri Meter Performed By: #### 2 [id number] ####[facility] [address] [place] [address] Consultation Noteon 12-24-19 Consultation Note Normal [facility] Comment on above: Result Comment: Elec tronically Signed By: Marcus POTTS, [place]\.br\Date and Time Signed: 12/23/22 07:33 EDT Family Medicine Office/Clini c Noteon 12-23-2022 Family Medicine Office/Clinic Note Normal [facility] Comment on above: Result Comment: Elec tronically Signed By: SHAISTA POTTS, Donta\.br\Date and Time Signed: 12/22/22 22:31 EDT C Blood Charcoalon Blood Culture Charcoal Normal [facility] Comment on above: Performed By: #### 1 [id number] ####[facility] [address] [place] [address] U Legi Agon 12-22-2022 L. pneumophila 1 Ag IA Ql (U) Negative Invalid Interpretation Code Negative [facility] Comment on above: Result Comment: Pres umptive negative for L. pneumophila serogroup 1 antigen in urine,suggesting no recent or current infection. Legionnaires' diseasecannot be ruled out since other serogroups and species may also causedisease.Performed at: [address] [id number] MD Tyler Gurrola Performed By: #### 2 [id number] ####[facility] [address] [place] [address] C Urineon 12-21-2022 Bacteria identified Cx Nom (U) Normal [facility] Comment on above: Performed By: #### 1 7830907, 3536451 ####[facility] [address] [place] [address] Capillary Glucose POCon 11-23 Glucose [Mass/Vol] 134 mg/dL High 55-99 [facility] Comment on above: Result Comment: Yazmin bri Meter Performed By: #### 2 [id number] ####[address] [address] Auto DiffOrdered By: SYSTEM SYSTEM on 12-20-2022 Basophils/100 WBC (Bld) 0.5 % Normal 0.0-2.0 [facility] Comment on above: Order Comment: Order Added by Discern Expert. Performed By: #### 2 231964, 7599942, 25496013, 4540473 ####[address] [address] Basophils/Leukocytes Auto (Bld) [Pure # fraction] 0.0 E9/L Normal 0.0-0.2 [facility] Comment on above: Order Comment: Order Added by Discern Expert. Performed By: #### 2 324313, 8735312, 25699167, 7585323 ####[address] [address] Eosinophils/100 WBC (Bld) 7.9 % Normal 0.0-8.0 [facility] Comment on above: Order Comment: Order Added by Discern Expert. Performed By: #### 2 729869, 4014298, 55081377, 3197354 ####[address] [address] Eosinophils/Leukocytes Auto (Bld) [Pure # fraction] 0.8 E9/L High 0.0-0.5 [facility] Comment on above: Order Comment: Order Added by Discern Expert. Performed By: #### 2 857679, 5880506, 55232408, 0864411 ####[address] [address] Lymphocytes/100 WBC (Bld) 9.5 % Low 14.0-50.0 [facility] Comment on above: Order Comment: Order Added by Discern Expert. Performed By: #### 2 118275, 3853321, 77870169, 2137294 ####[address] [address] Lymphocytes/Leukocytes Auto (Bld) [Pure # fraction] 1.0 E9/L Normal 1.0-4.0 [facility] Comment on above: Order Comment: Order Added by Discern Expert. Performed By: #### 2 160452, 5610424, 52495527, 5953536 ####[address] [address] Monocytes/100 WBC (Bld) 7.6 % Normal 4.0-14.0 [facility] Comment on above: Order Comment: Order Added by Discern Expert. Performed By: #### 2 636253, 9707972, 20055875, 9211363 ####[address] [address] Monocytes/Leukocytes Auto (Bld) [Pure # fraction] 0.8 E9/L Normal 0.2-1.0 [facility] Comment on above: Order Comment: Order Added by Discern Expert. Performed By: #### 2 550618, 0242763, 91504680, 6605689 ####[address] [address] Neutrophils/100 WBC (Bld) 74.5 % Normal 36.0-75.0 [facility] Comment on above: Order Comment: Order Added by Discern Expert. Performed By: #### 2 167554, 2111746, 71382234, 2789998 ####[address] [address] Neutrophils/Leukocytes Auto (Bld) [Pure # fraction] 7.7 E9/L High 2.0-7.5 [facility] Comment on above: Order Comment: Order Added by Discern Expert. Performed By: #### 2 233994, 1827607, 64545300, 7935365 ####[address] [address] BMPOrdered By: SYSTEM SYSTEM on 12-20-2022 Anion gap [Moles/Vol] 8 mmol/L Normal 6-16 [facility] Comment on above: Performed By: #### 2 096753, 3732002, 72349488, 5576936 ####[facility] [address] [place] [address] Calcium [Mass/Vol] 7.9 mg/dL Low 8.9-11.1 [facility] R emisol Comment on above: Performed By: #### 2 120138, 5561074, 60581535, 2038049 ####[facility] [address] [address] Chloride [Moles/Vol] 105 mmol/L Normal 101-111 [facility] Comment on above: Performed By: #### 2 066740, 3657370, 69581965, 1810635 ####[facility] [address] [address] CO2 [Moles/Vol] 25 mmol/L Normal 21-31 [facility] Ashwni luanne Comment on above: Performed By: #### 2 905587, 9372676, 92335942, 7090913 ####[facility] [address] [address] Creatinine [Mass/Vol] 1.0 mg/dL Normal 0.5-1.3 [facility] Comment on above: Performed By: #### 2 835604, 7651987, 50894739, 4323196 ####[facility] [address] [address] Glucose [Mass/Vol] 106 mg/dL Normal 55-199 [facility] R emisol Comment on above: Result Comment: If t his glucose result represents a fasting glucose, interpretation should refer to the following reference range: 55-99 mg/dL Performed By: #### 2 943036, 8879413, 91376767, 5942371 ####[facility] [address] [place] [address] Potassium [Moles/Vol] 4.4 mmol/L Normal 3.5-5.3 [facility] Comment on above: Performed By: #### 2 740426, 6399021, 20768422, 8592118 ####[facility] [address] [place] [address] Sodium [Moles/Vol] 134 mmol/L Low 135-145 [facility] R emisol Comment on above: Performed By: #### 2 759400, 0732026, 30451860, 9226760 ####[facility] [address] [place] [address] Urea nitrogen [Mass/Vol] 22 mg/dL High 5-21 [facility] Remisol Comment on above: Performed By: #### 2 775332, 6890222, 11696097, 5830653 ####[address] [address] BMPon 12-20-2022 Urea nitrogen/Creatinine [Mass ratio] 22 No Units High 10-20 [facility] Comment on above: Performed By: #### 2 817621, 4976310, 41509779, 7456779 ####[address] [address] CBC w/ Auto DiffOrdered By: Bony Hdez on 12-20-2022 Erythrocyte distribution width (RBC) [Ratio] 14.7 % High 10.9-14.2 [facility] Comment on above: Performed By: #### 2 063905, 8076538, 46341452, 7296703 ####[address] [address] Hematocrit (Bld) [Volume fraction] 34.6 % Low 37.7-49.0 [facility] Comment on above: Performed By: #### 2 805931, 2206339, 36173080, 8512496 ####[address] [address] Hemoglobin (Bld) [Mass/Vol] 11.7 g/dL Low 13.5-17.5 [facility] Comment on above: Performed By: #### 2 975271, 4223549, 07786673, 5936067 ####[address] [place] [address] MCH (RBC) [Entitic mass] 28.6 pg Normal 27.0-34.0 [facility] Comment on above: Performed By: #### 2 625732, 0816533, 09227581, 1456984 ####[facility] [address] [address] MCHC (RBC) [Mass/Vol] 33.7 g/dL Normal 31.4-36.0 [facility] Comment on above: Performed By: #### 2 065448, 4549421, 56888480, 5213529 ####[facility] [address] MCV (RBC) [Entitic vol] 84.7 fL Normal 80.0-100.0 F C [facility] Comment on above: Performed By: #### 2 870364, 9322995, 98922093, 5522923 ####[facility] [place] [address] Platelet mean volume (Bld) [Entitic vol] 9.5 fL Normal 6.4-10.8 [facility] Comment on above: Performed By: #### 2 399883, 9936416, 55864917, 6864198 ####[facility] [address] [address] Platelets (Bld) [#/Vol] 216.0 E9/L Normal 150.0-500.0 [facility] Comment on above: Performed By: #### 2 265022, 3630687, 44777423, 3429542 ####[facility] [address] [address] RBC (Bld) [#/Vol] 4.1 E12/L Low 4.3-5.9 [facility] Comment on above: Performed By: #### 2 853688, 8488163, 69122809, 5148604 ####[facility] [address] [address] WBC corrected for nucl RBC Auto (Bld) [#/Vol] 10.3 E9/L Normal 4.0-11.0 [facility] Comment on above: Performed By: #### 2 144946, 4092078, 19942078, 3531273 ####[facility] [address] [place] [address] CHEMISTRYOrdered By: Lab ROP User on 12-20-2022 Glucose [Mass/Vol] 109 mg/dL High 55 - 99 mg/dL [facility] POC Subsection Comment on above: Result Comment: Gareth GARDINER POC Device SN [id number] Invalid Interpretation Code [facility] POC Subsection POC User ID [id number] Invalid Interpretation Code [facility] POC Subsection POC Username SAMANTHA LAMBERT Invalid Interpretation Code [facility] POC Subsection CHEMISTRYOrdered By: SYSTEM SYSTEM on 12-20-2022 Urea nitrogen/Creatinine [Mass ratio] 22 mg/mg High 10 - 20 [facility] Remisol Capillary Glucose POCon 11-23 Glucose [Mass/Vol] 198 mg/dL High 55-99 [facility] Comment on above: Result Comment: Yazmin bri Meter Performed By: #### 2 [id number] ####[facility] [address] [place] [address] Glucose [Mass/Vol] 109 mg/dL High 55-99 [facility] Comment on above: Result Comment: Gareth GARDINER Performed By: #### 2 17030999 ####[facility] [address] [place] [address] Discharge Documentationon Discharge Documentation [id number]#1.0 0CD:127 Normal [facility] Inpatient Patient Summaryon 12-20-2022 Inpatient Patient Summary Normal [facility] Message from Medicareon 11-23 Message from Medicare [id number]#1. 00CD:127 Normal [facility] Monitor Recordon 12-20-2022 Monitor Record [id number]#1. 00CD:127 Normal [facility] Monitor Record [id number]#1. 00CD:127 Normal [facility] Monitor Record [id number]#1. 00CD:127 Normal [facility] Progress Note-Nurseon 2022 Progress Note-Nurse SBAR report called fanta Robert. Patient was transferred into wheelchair x2 stand pivot. Patient discharged to [facility] room 17. Transport by Samantha Lambert POCT. Normal [facility] Transfer Documentson 023 Transfer Documents [id number]#1.0 0CD:127 Normal [facility] eGFROrdered By: [employer] on 12-20-2022 GFR/1.73 sq M.predicted among non-blacks MDRD (S/P/Bld) [Vol rate/Area] 77 mL/min/1.73 m2 Normal >=59 [facility] Chem S Comment on above: Order Comment: Order added by Discern Expert. Result Comment: Interventional Nurse earnest kidney disease could be indicated at eGFR's of less than 60 mL/min/1.73m2. Kidney failure is indicated at less than 15 mL/min/1.73m2. Performed By: #### 2 399661, 3365552, 60406306, 5374728 ####[facility] [address] [place] [address] Auto Diffon 12-19-2022 Basophils/100 WBC (Bld) 0.4 % Normal 0.0-2.0 F [facility] Comment on above: Order Comment: Order Added by Discern Expert. Performed By: #### 1 0658735, 8470943, 1937228, 7832306 ####[facility] [address] [place] [address] Basophils/Leukocytes Auto (Bld) [Pure # fraction] 0.0 E9/L Normal 0.0-0.2 [facility] Comment on above: Order Comment: Order Added by Discern Expert. Performed By: #### 1 6961310, 3362729, 3624847, 8205296 ####[facility] [address] [place] [address] Eosinophils/100 WBC (Bld) 4.2 % Normal 0.0-8.0 [facility] Comment on above: Order Comment: Order Added by Discern Expert. Performed By: #### 1 8279183, 7786649, 6247472, 5046022 ####[place] [address] [place] [address] Eosinophils/Leukocytes Auto (Bld) [Pure # fraction] 0.6 E9/L High 0.0-0.5 [facility] Comment on above: Order Comment: Order Added by Discern Expert. Performed By: #### 1 0470816, 0124079, 5842081, 6670219 ####[address] [address] Lymphocytes/100 WBC (Bld) 7.3 % Low 14.0-50.0 [facility] Comment on above: Order Comment: Order Added by Discern Expert. Performed By: #### 1 3546119, 7239028, 4439239, 2572478 ####[address] [address] Lymphocytes/Leukocytes Auto (Bld) [Pure # fraction] 1.0 E9/L Normal 1.0-4.0 [facility] Comment on above: Order Comment: Order Added by Discern Expert. Performed By: #### 1 1913264, 7763923, 5633202, 3974084 ####[address] [address] Monocytes/100 WBC (Bld) 6.5 % Normal 4.0-14.0 [facility] Comment on above: Order Comment: Order Added by Discern Expert. Performed By: #### 1 9574816, 6075854, 1672494, 9641441 ####[address] [address] Monocytes/Leukocytes Auto (Bld) [Pure # fraction] 0.9 E9/L Normal 0.2-1.0 [facility] Comment on above: Order Comment: Order Added by Discern Expert. Performed By: #### 1 1861704, 3546208, 5872862, 9975765 ####[place] [address] [place] [address] Neutrophils/100 WBC (Bld) 81.6 % High 36.0-75.0 [facility] Comment on above: Order Comment: Order Added by Discern Expert. Performed By: #### 1 4755567, 7819814, 0332546, 7536723 ####[facility] [address] [place] [address] Neutrophils/Leukocytes Auto (Bld) [Pure # fraction] 10.7 E9/L High 2.0-7.5 [facility] Comment on above: Order Comment: Order Added by Discern Expert. Performed By: #### 1 9455710, 2354319, 1898169, 0541928 ####[place] [address] [place] [address] BMPon 12-19-2022 Anion gap [Moles/Vol] 11 mmol/L Normal 6-16 [facility] Comment on above: Performed By: #### 1 2001473, 6541469, 5721499, 3063902 ####[place] [address] [place] [address] Calcium [Mass/Vol] 8.5 mg/dL Low 8.9-11.1 [facility] Comment on above: Performed By: #### 1 8833968, 0912794, 3742481, 5030349 ####[facility] [address] [place] [address] Chloride [Moles/Vol] 103 mmol/L Normal 101-111 [facility] Comment on above: Performed By: #### 1 8074514, 5581593, 0752641, 0830378 ####[facility] [address] [place] [address] CO2 [Moles/Vol] 28 mmol/L Normal 21-31 [facility] Comment on above: Performed By: #### 1 6292383, 6408456, 8713378, 8873395 ####[facility] [address] [facility] [place] [address] Creatinine [Mass/Vol] 1.2 mg/dL Normal 0.5-1.3 [facility] Comment on above: Performed By: #### 1 4211166, 6361349, 3755606, 1110259 ####[facility] [address] [place] [address] Glucose [Mass/Vol] 86 mg/dL Normal 55-199 [facility] Comment on above: Result Comment: If t his glucose result represents a fasting glucose, interpretation should refer to the following reference range: 55-99 mg/dL Performed By: #### 1 7142156, 3557148, 3701625, 8854149 ####[facility] [address] [place] [address] Potassium [Moles/Vol] 4.5 mmol/L Normal 3.5-5.3 [facility] Comment on above: Performed By: #### 1 2419643, 4947986, 0503590, 4958020 ####[facility] [address] [facility] [place] [address] Sodium [Moles/Vol] 137 mmol/L Normal 135-145 [facility] Comment on above: Performed By: #### 1 9728895, 9621950, 1811287, 2396864 ####[facility] [address] [place] [address] Urea nitrogen [Mass/Vol] 35 mg/dL High 5-21 [facility] Comment on above: Performed By: #### 1 8698149, 8340128, 3552106, 6101102 ####[facility] [address] [place] [address] Urea nitrogen/Creatinine [Mass ratio] 29 No Units High 10-20 [facility] System Comment on above: Performed By: #### 1 9093618, 7628061, 4632230, 4719081 ####[facility] [address] [place] [address] CBC w/ Auto Diffon 07-29-202 3 Erythrocyte distribution width (RBC) [Ratio] 15.0 % High 10.9-14.2 [facility] Comment on above: Performed By: #### 1 0241941, 2591617, 0957042, 9324518 ####[facility] [address] [place] [address] Hematocrit (Bld) [Volume fraction] 38.4 % Normal 37.7-49.0 [facility] Comment on above: Performed By: #### 1 9989822, 6699320, 0808624, 7376392 ####[address] [place] [address] Hemoglobin (Bld) [Mass/Vol] 12.7 g/dL Low 13.5-17.5 [facility] Comment on above: Performed By: #### 1 8751573, 9083185, 9830569, 3325291 ####[address] [address] MCH (RBC) [Entitic mass] 27.9 pg Normal 27.0-34.0 [facility] Comment on above: Performed By: #### 1 3096785, 9130053, 6483231, 5871049 ####[address] [place] [address] MCHC (RBC) [Mass/Vol] 32.9 g/dL Normal 31.4-36.0 [facility] Comment on above: Performed By: #### 1 2675529, 3345051, 1952705, 3200697 ####[address] [place] [address] MCV (RBC) [Entitic vol] 84.8 fL Normal 80.0-100.0 [facility] Comment on above: Performed By: #### 1 2237560, 1488321, 5662465, 8828250 ####[address] [place] [address] Platelet mean volume (Bld) [Entitic vol] 9.5 fL Normal 6.4-10.8 [facility] Comment on above: Performed By: #### 1 3647597, 7171658, 0436329, 0274942 ####[facility] [address] [place] [address] Platelets (Bld) [#/Vol] 230.0 E9/L Normal 150.0-500.0 [facility] Comment on above: Performed By: #### 1 4145806, 0435217, 2718904, 1936648 ####[address] [place] [address] RBC (Bld) [#/Vol] 4.5 E12/L Normal 4.3-5.9 [facility] Comment on above: Performed By: #### 1 2768281, 8599776, 2235623, 1487035 ####[facility] [address] [place] [address] WBC corrected for nucl RBC Auto (Bld) [#/Vol] 13.1 E9/L High 4.0-11.0 [facility] Comment on above: Performed By: #### 1 6577367, 8481766, 1958742, 1312916 ####[facility] [address] [place] [address] CHEMISTRYOrdered By: Lab ROP User on 12-19-2022 Glucose [Mass/Vol] 210 mg/dL High 55 - 99 mg/dL [facility] POC Subsection Comment on above: Result Comment: Gareth GARDINER POC Device SN [id number] Invalid Interpretation Code [facility] POC Subsection POC User ID [id number] Invalid Interpretation Code [facility] POC Subsection POC Username JODITRESAPatti SHER Invalid Interpretation Code [facility] POC Subsection Glucose [Mass/Vol] 111 mg/dL High 55 - 99 mg/dL [facility] POC Subsection Comment on above: Result Comment: Gareth GARDINER POC Device SN [id number] Invalid Interpretation Code [facility] POC Subsection POC User ID [id number] Invalid Interpretation Code [facility] POC Subsection POC Username KELLEN HERNANDEZ Invalid Interpretation Code [facility] POC Subsection CHEMISTRYOrdered By: SYSTEM SYSTEM on 12-19-2022 Anion gap [Moles/Vol] 11 mmol/L Normal 6 - 16 mEq/L [facility] Remisol Calcium [Mass/Vol] 8.5 mg/dL Low 8.9 - 11. 1 mg/dL [facility] Chloride [Moles/Vol] 103 mmol/L Normal 101 - 1 11 mmol/L [facility] CO2 [Moles/Vol] 28 mmol/L Normal 21 - 31 mmol/L [facility] Creatinine [Mass/Vol] 1.2 mg/dL Normal 0.5 - 1.3 mg/dL [facility] GFR/1.73 sq M.predicted among non-blacks MDRD (S/P/Bld) [Vol rate/Area] 62 mL/min/1.73 m2 Normal >=59mL/min/ 1.73 m2 [facility] Chem S Glucose [Mass/Vol] 86 mg/dL Normal 55 - 199 mg/dL [facility] Remisol Potassium [Moles/Vol] 4.5 mmol/L Normal 3.5 - 5.3 mmol/L [facility] Remisol Sodium [Moles/Vol] 137 mmol/L Normal 135 - 145 mmol/L [facility] Remisol Urea nitrogen [Mass/Vol] 35 mg/dL High 5 - 21 mg/dL [facility] Remisol Urea nitrogen/Creatinine [Mass ratio] 29 mg/mg High 10 - 20 [facility] Remisol Capillary Glucose POCon 11-22 Glucose [Mass/Vol] 210 mg/dL High 55-99 [facility] Comment on above: Result Comment: Gareth GARDINER Performed By: #### 2 [id number] ####[facility] [address] [place] [address] Glucose [Mass/Vol] 111 mg/dL High 55-99 [facility] Comment on above: Result Comment: Gareth GARDINER Performed By: #### 2 78033066 ####[facility] [address] [place] [address] Glucose [Mass/Vol] 201 mg/dL High 55-99 [facility] Comment on above: Result Comment: Gareth GARDINER Performed By: #### 2 32136168 ####[facility] [address] [place] [address] Glucose [Mass/Vol] 93 mg/dL Normal 55-99 [facility] Comment on above: Result Comment: Gareth guerrero RN/ Performed By: #### 2 [id number] ####[facility] [address] [place] [address] HEMATOLOGYOrdered By: SYSTEM SYSTEM on 12-19-2022 Basophils/100 [...] 4.5 E12/L Normal 4.3 - 5.9 E12/L [facility] HemeAutoSS WBC corrected for nucl RBC Auto (Bld) [#/Vol] 13.1 E9/L High 4.0 - 11.0 E9/L [facility] HemeAutoSS Monitor Recordon 12-19-2022 Monitor Record [id number]#1. 00CD:127 Normal [facility] Monitor Record [id number]#1. 00CD:127 Normal [facility] Progress Note-Physicianon Progress Note-Physician Normal [facility] Comment on above: Result Comment: Elec tronically Signed By: MICHAEL POTTS, Jamir\.br\Date and Time Signed: 12/19/22 09:47 EDT eGFRon 12-19-2022 GFR/1.73 sq M.predicted among non-blacks MDRD (S/P/Bld) [Vol rate/Area] 62 mL/min/1.73 m2 Normal >=59 [facility] Comment on above: Order Comment: Order added by Discern Expert. Result Comment: Interventional Nurse earnest kidney disease could be indicated at eGFR's of less than 60 mL/min/1.73m2. Kidney failure is indicated at less than 15 mL/min/1.73m2. Performed By: #### 1 0653840, 6673901, 5318483, 4079074 ####[facility] [address] [place] [address] Auto Diffon 12-18-2022 Basophils/100 WBC (Bld) 0.4 % Normal 0.0-2.0 [facility] Comment on above: Order Comment: Order Added by Discern Expert. Performed By: #### 2 442680, 6800090 ####[facility] [address] [place] [address] Basophils/Leukocytes Auto (Bld) [Pure # fraction] 0.1 E9/L Normal 0.0-0.2 [facility] Comment on above: Order Comment: Order Added by Discern Expert. Performed By: #### 2 888490, 4411064 ####[address] [address] Eosinophils/100 WBC (Bld) 2.8 % Normal 0.0-8.0 [facility] Comment on above: Order Comment: Order Added by Bethany Expert. Performed By: #### 2 573321, 4331798 ####[address] [address] Eosinophils/Leukocytes Auto (Bld) [Pure # fraction] 0.4 E9/L Normal 0.0-0.5 [facility] Comment on above: Order Comment: Order Added by Bethany Expert. Performed By: #### 2 381803, 9014796 ####[address] [address] Lymphocytes/100 WBC (Bld) 9.0 % Low 14.0-50.0 [facility] Comment on above: Order Comment: Order Added by Discern Expert. Performed By: #### 2 718200, 0173797 ####[facility] [address] [place] [address] Lymphocytes/Leukocytes Auto (Bld) [Pure # fraction] 1.3 E9/L Normal 1.0-4.0 [facility] Comment on above: Order Comment: Order Added by Bethany Expert. Performed By: #### 2 590065, 1778637 ####[facility] [address] [place] [address] Monocytes/100 WBC (Bld) 8.3 % Normal 4.0-14.0 [facility] Comment on above: Order Comment: Order Added by Discern Expert. Performed By: #### 2 780210, 0631443 ####[address] [address] Monocytes/Leukocytes Auto (Bld) [Pure # fraction] 1.3 E9/L High 0.2-1.0 [facility] Comment on above: Order Comment: Order Added by Discern Expert. Performed By: #### 2 795963, 5723492 ####[address] [address] Neutrophils/100 WBC (Bld) 79.5 % High 36.0-75.0 [facility] Comment on above: Order Comment: Order Added by Bethany Expert. Performed By: #### 2 497394, 9629524 ####[address] [address] Neutrophils/Leukocytes Auto (Bld) [Pure # fraction] 11.9 E9/L High 2.0-7.5 [facility] Comment on above: Order Comment: Order Added by Bethany Expert. Performed By: #### 2 172158, 3219971 ####[address] [address] Basophils/100 WBC (Bld) 0.6 % Normal 0.0-2.0 [facility] Comment on above: Order Comment: Order Added by Bethany Expert. Performed By: #### 1 8875134, 8551089, 50061133, 8041284, 96755516, 89237951, 2626672 ####[address] [place] [address] Basophils/Leukocytes Auto (Bld) [Pure # fraction] 0.1 E9/L Normal 0.0-0.2 [facility] Comment on above: Order Comment: Order Added by Bethany Expert. Performed By: #### 1 3957464, 1032293, 79539414, 6840888, 74786448, 00465349, 0480283 ####[address] [place] [address] Eosinophils/100 WBC (Bld) 2.0 % Normal 0.0-8.0 [facility] Comment on above: Order Comment: Order Added by Discern Expert. Performed By: #### 1 9486093, 2759450, 02218828, 8560101, 98707932, 30308574, 4623618 ####[address] [address] Eosinophils/Leukocytes Auto (Bld) [Pure # fraction] 0.3 E9/L Normal 0.0-0.5 [facility] Comment on above: Order Comment: Order Added by Discern Expert. Performed By: #### 1 0094402, 2559376, 04025045, 9898843, 67183822, 63591413, 0889133 ####[address] [address] Lymphocytes/100 WBC (Bld) 7.6 % Low 14.0-50.0 [facility] Comment on above: Order Comment: Order Added by Discern Expert. Performed By: #### 1 9433119, 7530245, 85664142, 4274936, 20875989, 76646642, 2492563 ####[address] [address] Lymphocytes/Leukocytes Auto (Bld) [Pure # fraction] 1.3 E9/L Normal 1.0-4.0 [facility] Comment on above: Order Comment: Order Added by Discern Expert. Performed By: #### 1 0960101, 8299154, 05742002, 3118455, 03596728, 93133680, 6663667 ####[address] [address] Monocytes/100 WBC (Bld) 7.8 % Normal 4.0-14.0 [facility] Comment on above: Order Comment: Order Added by Discern Expert. Performed By: #### 1 4524011, 0080180, 44344043, 0448663, 59901915, 65158458, 3196154 ####[address] [place] [address] Monocytes/Leukocytes Auto (Bld) [Pure # fraction] 1.3 E9/L High 0.2-1.0 [facility] Comment on above: Order Comment: Order Added by Discern Expert. Performed By: #### 1 3259419, 6121293, 98204154, 1761702, 97361044, 84338041, 2408675 ####[address] [place] [address] Neutrophils/100 WBC (Bld) 82.0 % High 36.0-75.0 [facility] Comment on above: Order Comment: Order Added by Discern Expert. Performed By: #### 1 2149041, 2501661, 70011438, 6761218, 53596689, 95345391, 6196285 ####[address] [place] [address] Neutrophils/Leukocytes Auto (Bld) [Pure # fraction] 13.7 E9/L High 2.0-7.5 [facility] Comment on above: Order Comment: Order Added by Discern Expert. Performed By: #### 1 1492718, 0929825, 63812300, 9274865, 03587186, 01042696, 0638488 ####[facility] [address] [place] [address] BMPon 12-18-2022 Creatinine [Mass/Vol] 1.6 mg/dL High 0.5-1.3 [facility] Comment on above: Performed By: #### 2 249701, 2766017, 5751285388, 35030769, 38496748 ####[facility] [address] [place] [address] Urea nitrogen [Mass/Vol] 47 mg/dL High 5-21 [facility] Comment on above: Performed By: #### 2 800248, 2039093, 2164277086, 08996127, 26890582 ####[facility] [address] [place] [address] Urea nitrogen/Creatinine [Mass ratio] 29 No Units High 10-20 [facility] Comment on above: Performed By: #### 2 106053, 7640907, 1984382034, 09647904, 39283557 ####[facility] [address] [place] [address] Anion gap [Moles/Vol] 12 mmol/L Normal 6-16 [facility] Comment on above: Performed By: #### 2 671700, 5317981, 0441707673, 83170073, 71637741 ####[facility] [address] [place] [address] Calcium [Mass/Vol] 8.7 mg/dL Low 8.9-11.1 [facility] Comment on above: Performed By: #### 2 397120, 8846162, 7171339798, 70284390, 85106480 ####[facility] [address] [facility] [place] [address] Chloride [Moles/Vol] 97 mmol/L Low 101-111 [facility] Comment on above: Performed By: #### 2 018720, 8411342, 5809640750, 48587902, 77838302 ####[facility] [address] [place] [address] CO2 [Moles/Vol] 32 mmol/L High 21-31 [facility] Comment on above: Performed By: #### 2 602216, 3526299, 9130358703, 62535458, 72660330 ####[facility] [address] [place] [address] Glucose [Mass/Vol] 131 mg/dL Normal 55-199 [facility] Comment on above: Result Comment: If t his glucose result represents a fasting glucose, interpretation should refer to the following reference range: 55-99 mg/dL Performed By: #### 2 179682, 8037785, 9042903447, 84257386, 52943923 ####[facility] [address] [facility] [place] [address] Potassium [Moles/Vol] 3.7 mmol/L Normal 3.5-5.3 [facility] Comment on above: Performed By: #### 2 601900, 7798793, 6043526912, 81184427, 43533232 ####[facility] [address] [place] [address] Sodium [Moles/Vol] 137 mmol/L Normal 135-145 [facility] Comment on above: Performed By: #### 2 888240, 4852399, 8417829649, 40488641, 00710859 ####[facility] [address] [place] [address] Creatinine [Mass/Vol] 1.8 mg/dL High 0.5-1.3 [facility] Comment on above: Performed By: #### 1 8884755, 9093174, 11880655, 3876812, 62248156, 12158884, 8281762 ####[facility] [address] [place] [address] Urea nitrogen [Mass/Vol] 49 mg/dL High 5-21 [facility] Comment on above: Performed By: #### 1 0970551, 3772875, 72639861, 4450620, 05104361, 51252374, 7486157 ####[facility] [address] [place] [address] Urea nitrogen/Creatinine [Mass ratio] 27 No Units High 10-20 [facility] Comment on above: Performed By: #### 1 8512793, 6920030, 86998794, 7571299, 18133881, 49992701, 7668695 ####[facility] [address] [place] [address] Anion gap [Moles/Vol] 18 mmol/L High 6-16 [facility] Comment on above: Performed By: #### 1 7054400, 5579250, 40002136, 0572285, 21645130, 01208325, 3735071 ####[facility] [address] [place] [address] Calcium [Mass/Vol] 9.3 mg/dL Normal 8.9-11.1 [facility] Comment on above: Performed By: #### 1 7672712, 3176787, 55661437, 4968906, 38466019, 65520140, 4337868 ####[facility] [address] [place] [address] Chloride [Moles/Vol] 93 mmol/L Low 101-111 [facility] Comment on above: Performed By: #### 1 6250938, 9538237, 65397825, 7402078, 86057306, 57235313, 4313149 ####[facility] [address] [place] [address] CO2 [Moles/Vol] 29 mmol/L Normal 21-31 [facility] Comment on above: Performed By: #### 1 5289698, 3915661, 61399490, 2438430, 66521271, 09029155, 9265064 ####[facility] [address] [place] [address] Glucose [Mass/Vol] 137 mg/dL Normal 55-199 [facility] Comment on above: Result Comment: If t his glucose result represents a fasting glucose, interpretation should refer to the following reference range: 55-99 mg/dL Performed By: #### 1 5538531, 7425198, 81164000, 8503854, 74742889, 59912114, 1068450 ####[facility] [address] [place] [address] Potassium [Moles/Vol] 4.0 mmol/L Normal 3.5-5.3 [facility] Comment on above: Performed By: #### 1 4123030, 5888954, 53419270, 4800291, 03642212, 73357059, 9507272 ####[facility] [address] [place] [address] Sodium [Moles/Vol] 136 mmol/L Normal 135-145 [facility] Comment on above: Performed By: #### 1 9051354, 2019203, 31855551, 4819492, 09291529, 99547997, 0290727 ####[facility] [address] [place] [address] BNPon 12-18-2022 Int Ctr BNP Pass Normal [facility] Comment on above: Performed By: #### 1 8232175, 5844758, 67667248, 6211624, 63257641, 02913442, 5432765 ####[facility] [address] [place] [address] Natriuretic peptide B (Bld) [Mass/Vol] 219 pg/mL High 5-80 [facility] Comment on above: Performed By: #### 1 2353362, 0265775, 98657855, 9461248, 78005939, 94696113, 6630149 ####[facility] [address] [place] [address] CBC w/ Auto Diffon Erythrocyte distribution width (RBC) [Ratio] 14.8 % High 10.9-14.2 [facility] Comment on above: Performed By: #### 2 338231, 0423336 ####[address] [place] Hematocrit (Bld) [Volume fraction] 37.8 % Normal 37.7-49.0 [facility] Comment on above: Performed By: #### 2 272222, 9957442 ####[facility] [address] [place] [address] Hemoglobin (Bld) [Mass/Vol] 12.7 g/dL Low 13.5-17.5 [facility] Comment on above: Performed By: #### 2 642737, 5825593 ####[facility] [address] [place] [address] MCH (RBC) [Entitic mass] 28.3 pg Normal 27.0-34.0 [facility] Comment on above: Performed By: #### 2 258750, 8993152 ####[address] [address] MCHC (RBC) [Mass/Vol] 33.6 g/dL Normal 31.4-36.0 [facility] Comment on above: Performed By: #### 2 908421, 5834907 ####[address] [place] [address] MCV (RBC) [Entitic vol] 84.2 fL Normal 80.0-100.0 [facility] Comment on above: Performed By: #### 2 377225, 2863167 ####[address] [address] Platelet mean volume (Bld) [Entitic vol] 9.2 fL Normal 6.4-10.8 [facility] Comment on above: Performed By: #### 2 834326, 9459926 ####[address] [address] Platelets (Bld) [#/Vol] 219.0 E9/L Normal 150.0-500.0 [facility] Comment on above: Performed By: #### 2 319345, 2513067 ####[address] [address] RBC (Bld) [#/Vol] 4.5 E12/L Normal 4.3-5.9 [facility] Comment on above: Performed By: #### 2 992022, 8474795 ####[address] [address] WBC corrected for nucl RBC Auto (Bld) [#/Vol] 15.0 E9/L High 4.0-11.0 [facility] Comment on above: Performed By: #### 2 864653, 9655714 ####[address] [address] Erythrocyte distribution width (RBC) [Ratio] 14.9 % High 10.9-14.2 [facility] Comment on above: Performed By: #### 1 9587885, 0269212, 11780190, 5185726, 68716920, 84346119, 4949956 ####[facility] [address] [place] [address] Hematocrit (Bld) [Volume fraction] 42.8 % Normal 37.7-49.0 [facility] Comment on above: Performed By: #### 1 4458207, 1154334, 85762430, 2428150, 77345372, 43770608, 0495907 ####[facility] [address] [place] [address] Hemoglobin (Bld) [Mass/Vol] 14.3 g/dL Normal 13.5-17.5 [facility] Comment on above: Performed By: #### 1 2082901, 5579185, 80130461, 6825125, 69156854, 33361801, 6454789 ####[facility] [address] [place] [address] MCH (RBC) [Entitic mass] 28.1 pg Normal 27.0-34.0 [facility] Comment on above: Performed By: #### 1 4825441, 7934488, 95497053, 0056297, 35261075, 85093182, 8932684 ####[facility] [address] [place] [address] MCHC (RBC) [Mass/Vol] 33.3 g/dL Normal 31.4-36.0 [facility] Comment on above: Performed By: #### 1 8778018, 2000592, 30837601, 4081011, 15279533, 94886639, 8057877 ####[facility] [address] [place] [address] MCV (RBC) [Entitic vol] 84.3 fL Normal 80.0-100.0 [facility] Comment on above: Performed By: #### 1 7065816, 9694189, 45780837, 7555898, 92849535, 17150216, 5843735 ####[facility] [address] [place] [address] Platelet mean volume (Bld) [Entitic vol] 9.8 fL Normal 6.4-10.8 [facility] Comment on above: Performed By: #### 1 5679890, 4264147, 59401053, 2143301, 43440992, 00026528, 0239762 ####[facility] [address] [place] [address] Platelets (Bld) [#/Vol] 234.0 E9/L Normal 150.0-500.0 [facility] Comment on above: Performed By: #### 1 8132328, 8926325, 49699266, 3450268, 67167135, 30544534, 1812220 ####[facility] [address] [place] [address] RBC (Bld) [#/Vol] 5.1 E12/L Normal 4.3-5.9 [facility] Comment on above: Performed By: #### 1 3482961, 1193062, 10024218, 4230729, 60034122, 56488231, 3270695 ####[facility] [address] [place] [address] WBC corrected for nucl RBC Auto (Bld) [#/Vol] 16.7 E9/L High 4.0-11.0 [facility] Comment on above: Result Comment: Slid e reviewed by JENNIFER. Performed By: #### 1 3167616, 6057020, 09645379, 1057480, 59626056, 31278275, 8253725 ####[facility] [address] [place] [address] CHEMISTRYOrdered By: SYSTEM SYSTEM on 12-18-2022 Troponin [...] 44 mL/min/1.73 m2 Low >=59mL/min/ 1.73 m2 [facility] Chem S Glucose [Mass/Vol] 131 mg/dL Normal [...] 219 pg/mL High 5 - 80 pg/mL [facility] HemeManSS CKon 12-18-2022 CK [Catalytic activity/Vol] 55 Int._Unit/L Normal 14-261 [facility] Comment on above: Performed By: #### 2 516939, 6286981, 3893215599, 14786907, 22147911 ####[facility] [address] [place] [address] COAGULATIONOrdered By: Rachael Apodaca on 12-18-2022 aPTT Coag (PPP) [Time] 30.6 s Normal 25.1 - 36.5 second(s) [facility] Auto Coag INR Coag (PPP) [Relative time] 1.1 {INR} Invalid Interpretation Code [facility] Auto Coag PT Coag (PPP) [Time] 12.5 s Normal 9.4 - 1 2.5 second(s) [facility] Auto Coag CT Head or Brain w/o Contras ton 12-18-2022 CT Head or Brain w/o Contrast Normal [facility] CT Spine Cervical w/o Contra ston 12-18-2022 CT Spine Cervical w/o Contrast Normal [facility] Capillary Glucose POCon 11-22 Glucose [Mass/Vol] 212 mg/dL High 55-99 [facility] Comment on above: Result Comment: Gareth GARDINER Performed By: #### 2 64497450 ####[facility] [address] [place] [address] Glucose [Mass/Vol] 97 mg/dL Normal 55-99 [facility] Comment on above: Result Comment: Yazmin bri Meter Performed By: #### 2 52688103 ####[facility] [address] [place] [address] Glucose [Mass/Vol] 119 mg/dL High 55-99 [facility] Comment on above: Result Comment: Gareth GARDINER Performed By: #### 2 89884987 ####[facility] [address] [place] [address] Glucose [Mass/Vol] 131 mg/dL High 55-99 [facility] Comment on above: Result Comment: Gareth GARDINER Performed By: #### 2 60527188 ####[facility] [address] [place] [address] Consent for Treatmenton 11-22 Consent for Treatment [id number]#1. 00CD:127 Normal [facility] ED Clinical Summaryon 2022 ED Clinical Summary Normal [facility] ED Note-Physicianon 12-19-19 ED Note-Physician Normal [facility] Comment on above: Result Comment: Elec tronically Signed By: Guilherme POTTS, Malcom\.br\Date and Time Signed: 12/18/22 04:33 EDT ED Patient Education Noteon 12-18-2022 ED Patient Education Note Normal [facility] ED Patient Summaryon 023 ED Patient Summary Normal [facility] ED Traumaon 12-18-2022 ED Trauma [id number]:127 Normal [facility] HEMATOLOGYOrdered By: SYSTEM SYSTEM on 12-18-2022 Basophils/100 [...] 15.0 E9/L High 4.0 - 11.0 E9/L [facility] [employer] Insurance Correspondence Off iceon 12-18-2022 Insurance Correspondence Office [id number] 0CD:127 Normal [facility] Interdisciplinary Note - Santosh e Manageron 12-18-2022 Interdisciplinary Note - Computer Clerk [facility] Comment on above: Result Comment: Elec tronically Signed By: Lucero Watson\.br\Date and Time Signed: 12/18/22 14:57 EDT Interdisciplinary Note - Dejuan singon 12-18-2022 Interdisciplinary Note - Nursing Patient he is confused and he does not able to answer my questions. [facility] to [facility] current medication list in fax.3N Normal [facility] Interdisciplinary Note - PTo n 12-18-2022 Interdisciplinary Note - PT Normal [facility] Laboratory - Microbiology an d Antimicrobial susceptibilityOrdered By: Karen Vergara on 12-18-2022 Bacteria identified Cx Nom (U) 10,000 cfu/ml Staphylococcus species Continuing incubation [facility] Monitor Recordon 12-18-2022 Monitor Record [id number]. 00CD:127 Normal [facility] No Panel InformationOrdered By: Karen Vergara on 12-18-2022 Blood Culture Charcoal Streptococcus spe cies Staphylococcus species coagulase negative In 1 of 2 blood culture bottles drawn. Isolated from aerobic bottle Preliminary gram stain results of gram positive cocci in clusters Result called to Dr. Mckinney by and results read back for confirmation on 12/19/2022 09:39:39 [facility] No Panel InformationOrdered By: ANGPROCESSSERVER MICROBIOLOGY on 12-18-2022 Blood Culture Charcoal No growth at 2 da ys. Final to follow at 7 days. [facility] PT & PTTon 12-18-2022 aPTT Coag (PPP) [Time] 30.6 second(s) Normal 25.1-36.5 [facility] Comment on above: Result Comment: Para meter [...] the same coagulation reagent and instrumentation as [facility]. Currently there are no coagulation studies available worldwide for children to 14 days, and no normal ranges. Heparin therapeutic range (represented by Anti-Factor Xa activity of 0.2 - 0.4 U/mL) corresponds to PTT of 56.6 - 109.0 sec. Performed By: #### 1 [id number], 1703294, 54914790, 9623838, 97900133, 93831872, 8994836 ####[facility] [address] [place] [address] INR Coag (PPP) [Relative time] 1.1 {INR} Invalid Interpretation Code [facility] Comment on above: Result Comment: INR results are specifically intended to assess patients stabilized on long-term Anticoagulation therapy suggested INR?s ?Less Intensive Anticoagulation? 2.0 ? 3.0Conventional Range 3.0 ? 4.5 Performed By: #### 1 0116094, 0245441, 60918106, 0851791, 81165564, 75024334, 8870292 ####[facility] [address] [place] [address] PT Coag (PPP) [Time] 12.5 second(s) Normal 9.4-12.5 [facility] Comment on above: Result Comment: 15 d [...] were obtained from a study by Terence oYung et al. prepared from 1437 samples obtained at 7 different centers using the same coagulation reagent and instrumentation as [facility]. Currently there are no coagulation studies available worldwide for children to 14 days, and no normal ranges. Performed By: #### 1 2246753, 4839997, 47140514, 1002759, 54388479, 54886097, 4316433 ####[facility] [address] [place] [address] Procalcitoninon 12-18-2022 Procalcitonin .09 ng/mL Normal .00-.50 [facility] Comment on above: Result Comment: <0.5 [...] to 24 hours. Performed By: #### 2 183846, 9330598, [id number], 22525649, 20582113 ####[facility] [address] [place] [address] RAD - Preliminary Cat Scan R eporton 12-18-2022 RAD - Preliminary Cat Scan Report [id number]. 00CD:127 Normal [facility] Troponin 0 Hr.on 12-18-2022 Troponin I.cardiac [Mass/Vol] 23.50 pg/mL Normal 15.90-38.40 [facility] Comment on above: Result Comment: The 95% CI (Confidence Interval) PPV (Positive Predictive Value) for myocardial infarction in females is 38 pg/mL, in males 51 pg/mL. The results should be used in conjunction with clinical conditions of myocardial infarction.(Access High Sensitivity Troponin I Instructions For Use, [employer] December 2017) Performed By: #### 1 1717551, 5750268, 87743308, 0239295, 52826761, 29393638, 2626862 ####[facility] [address] [place] [address] Troponin 3 Hr.on 12-18-2022 Troponin I.cardiac [Mass/Vol] 18.80 pg/mL Normal 15.90-38.40 [facility] Comment on above: Result Comment: The 95% CI (Confidence Interval) PPV (Positive Predictive Value) for myocardial infarction in females is 38 pg/mL, in males 51 pg/mL. The results should be used in conjunction with clinical conditions of myocardial infarction.(Access High Sensitivity Troponin I Instructions For Use, [employer] December 2017) Performed By: #### 1 [id number] ####[facility] [address] [place] [address] Troponin 6 Hr.on 12-18-2022 Troponin I.cardiac [Mass/Vol] 22.50 pg/mL Normal 15.90-38.40 [facility] Comment on above: Result Comment: The 95% CI (Confidence Interval) PPV (Positive Predictive Value) for myocardial infarction in females is 38 pg/mL, in males 51 pg/mL. The results should be used in conjunction with clinical conditions of myocardial infarction.(Access High Sensitivity Troponin I Instructions For Use, [employer] December 2017) Performed By: #### 2 654053, 2734554, [id number], 57284837, 07775139 ####[facility] [address] [place] [address] Troponin 9 Hr.on 12-18-2022 Troponin I.cardiac [Mass/Vol] 18.90 pg/mL Normal 15.90-38.40 [facility] Comment on above: Result Comment: The 95% CI (Confidence Interval) PPV (Positive Predictive Value) for myocardial infarction in females is 38 pg/mL, in males 51 pg/mL. The results should be used in conjunction with clinical conditions of myocardial infarction.(Oxigene High Sensitivity Troponin I Instructions For Use, [employer] December 2017) Performed By: #### 1 7270027 ####[address] [address] UA With Cult Reflexon 2022 Bacteria LM Ql (Urine sed) TRACE Normal Trace [facility] Comment on above: Performed By: #### 1 8420312, 8255537 ####[address] [address] Bilirubin Ql (U) Negative Normal Negative [facility] Comment on above: Performed By: #### 1 3710732, 6372875 ####[address] [address] Clarity (U) CLEAR Normal Clear [facility] Comment on above: Performed By: #### 1 3055561, 2681033 ####[address] [address] Color (U) YELLOW Normal Yellow [facility] Comment on above: Performed By: #### 1 6819167, 3038086 ####[address] [place] [address] Epithelial cells.squamous LM.HPF (Urine sed) [#/Area] 0-2 Normal 0-2 [facility] Comment on above: Performed By: #### 1 3844161, 8255594 ####[facility] [address] [place] [address] Glucose Test strip (U) [Mass/Vol] Negative Normal Negative [facility] Comment on above: Performed By: #### 1 5430342, 2272968 ####[facility] [address] [place] [address] Hemoglobin Ql (U) TRACE Abnormal Negative [facility] Comment on above: Performed By: #### 1 6308476, 0572870 ####[facility] [address] [place] [address] Ketones (U) [Mass/Vol] Negative Normal Negative [facility] Comment on above: Performed By: #### 1 5347833, 0731772 ####[facility] [address] [place] [address] [place].plasma/[place].R BC (Bld) [Mass ratio] 0-3 Normal 0-3 [facility] Comment on above: Performed By: #### 1 3920058, 9317177 ####[facility] [address] [place] [address], [place] [address] Nitrite Ql (U) Negative Normal Negative [facility] Comment on above: Performed By: #### 1 2250335, 3275136 ####[facility] [address] [place] [address] pH (U) 6.5 [pH] Invalid Interpretation Code 5.0-9.0 [facility] Comment on above: Performed By: #### 1 0424351, 1027593 ####[facility] [address] [facility] [place] [address] Protein (U) [Mass/Vol] Negative Normal Negative [facility] Comment on above: Performed By: #### 1 3184315, 7861769 ####[facility] [address] [facility] [place] [address] Specific gravity (U) [Rel density] 1.020 Invalid Interpretation Code 1.005-1.030 [facility] Comment on above: Performed By: #### 1 5397015, 4407560 ####[facility] [address] [place] [address] Type of Urine collection method Clean Catch Normal [facility] Comment on above: Performed By: #### 1 9371066, 2521919 ####[facility] [address] [place] Urobilinogen Qn (U) 0.2 {Lei'U}/dL Normal 0.0-1.0 [facility] Comment on above: Performed By: #### 1 1586861, 5564707 ####[place] [address] WBC Auto Ql (U) 3+ Abnormal Negative [facility] Comment on above: Performed By: #### 1 9201732, 9055983 ####[facility] [address] [place] [address] WBC LM.HPF (Urine sed) [#/Area] /[HPF] Abnormal 0-5 [facility] Comment on above: Performed By: #### 1 3737407, 3876767 ####[facility] [address] [place] [address] URINALYSISOrdered By: Houston Castillo on 12-18-2022 Bacteria [...] PM) Normal Negative [facility] UA Auto SS [place].plasma/[place].R BC (Bld) [Mass ratio] 0-3 /HPF Normal [...] [facility] UA Auto SS Urobilinogen Qn (U) 0.9469662 {Lei'U}/dL Normal 0.0 - 1.0 EU/dL [facility] UA Auto SS WBC Auto Ql (U) 3+ *ABN* (12/18/22 4:45 PM) Invalid Interpretation Code Negative [facility] UA Auto SS WBC LM.HPF (Urine sed) [#/Area] /[HPF] Invalid Interpretation Code 0-5/HPF [facility] UA Auto SS XR Chest Single Viewon 12-18 XR Chest Single View Normal [facility] XR Pelvis 1 or 2 Viewson XR Pelvis 1 or 2 Views Normal [facility] eGFRon 12-18-2022 GFR/1.73 sq M.predicted among non-blacks MDRD (S/P/Bld) [Vol rate/Area] 44 mL/min/1.73 m2 Low >=59 [facility] Comment on above: Order Comment: Order added by Discern Expert. Result Comment: Interventional Nurse earnest kidney disease could be indicated at eGFR's of less than 60 mL/min/1.73m2. Kidney failure is indicated at less than 15 mL/min/1.73m2. Performed By: #### 2 264521, 3447136, [id number], 55931201, 30024329 ####[facility] [address] [place] [address] GFR/1.73 sq M.predicted among non-blacks MDRD (S/P/Bld) [Vol rate/Area] 38 mL/min/1.73 m2 Low >=59 [facility] Comment on above: Order Comment: Order added by Discern Expert. Result Comment: Interventional Nurse earnest kidney disease could be indicated at eGFR's of less than 60 mL/min/1.73m2. Kidney failure is indicated at less than 15 mL/min/1.73m2. Performed By: #### 1 1328570, 6198058, 52866715, 4670576, 17530617, 28351591, 8360866 ####[facility] [address] [place] [address] Capillary Glucose POCon 11-22 Glucose [Mass/Vol] 165 mg/dL High 55- [facility] Comment on above: Result Comment: Yazmin bri Meter Performed By: #### 2 87668608 ####[facility] [address] [place] [address] Glucose [Mass/Vol] 184 mg/dL High 55- [facility] Comment on above: Performed By: #### 2 59617205 ####[facility] [address] [place] [address] Capillary Glucose POCon 11-22 Glucose [Mass/Vol] 184 mg/dL High 55-99 [facility] Comment on above: Result Comment: Yazmin bri Meter Performed By: #### 2 36391561 ####[facility] [address] [place] [address] Glucose [Mass/Vol] 141 mg/dL High 55- [facility] Comment on above: Result Comment: Yazmin bri Meter Performed By: #### 2 71979086 ####[facility] [address] [place] [address] Capillary Glucose POCon 11-22 Glucose [Mass/Vol] 183 mg/dL High 55-99 [facility] Comment on above: Result Comment: Yazmin bri Meter Performed By: #### 2 54967660 ####[facility] [address] [place] [address] Glucose [Mass/Vol] 147 mg/dL High 55-99 [facility] Comment on above: Result Comment: Yazmin bri Meter Performed By: #### 2 23629799 ####[facility] [address] [place] [address] Capillary Glucose POCon 11-22 Glucose [Mass/Vol] 188 mg/dL High 55-99 [facility] Comment on above: Result Comment: Yazmin bri Meter Performed By: #### 2 [id number] ####[facility] [address] [place] [address] Glucose [Mass/Vol] 162 mg/dL High 55- [facility] Comment on above: Result Comment: Yazmin bri Meter Performed By: #### 2 17712814 ####[facility] [address] [place] [address] Auto Diffon 12-13-2022 Basophils/100 WBC (Bld) 0.0 % Normal 0.0-2.0 [facility] Comment on above: Order Comment: Order Added by Discern Expert. Performed By: #### 1 3952875, 2281238, 448540565, 1337114, 8510338 ####[address] [address] Basophils/Leukocytes Auto (Bld) [Pure # fraction] 0.0 E9/L Normal 0.0-0.2 [facility] Comment on above: Order Comment: Order Added by Discern Expert. Performed By: #### 1 4906573, 9639593, 496898020, 6653430, 6287126 ####[address] [place] [address] Eosinophils/100 WBC (Bld) 7.6 % Normal 0.0-8.0 [facility] Comment on above: Order Comment: Order Added by Discern Expert. Performed By: #### 1 5218183, 9210064, 930452332, 7232496, 6875570 ####[address] [place] [address] Eosinophils/Leukocytes Auto (Bld) [Pure # fraction] 1.0 E9/L High 0.0-0.5 [facility] Comment on above: Order Comment: Order Added by Discern Expert. Performed By: #### 1 6475065, 1487935, 753614498, 7182113, 5414943 ####[address] [address] Lymphocytes/100 WBC (Bld) 10.3 % Low 14.0-50.0 [facility] Comment on above: Order Comment: Order Added by Discern Expert. Performed By: #### 1 9610026, 0538004, 068038677, 8496873, 2413457 ####[address] [address] Lymphocytes/Leukocytes Auto (Bld) [Pure # fraction] 1.3 E9/L Normal 1.0-4.0 [facility] Comment on above: Order Comment: Order Added by Discern Expert. Performed By: #### 1 4521637, 8952418, 305501112, 4962608, 7787643 ####[address] [address] Monocytes/100 WBC (Bld) 9.6 % Normal 4.0-14.0 [facility] Comment on above: Order Comment: Order Added by Discern Expert. Performed By: #### 1 7523778, 4503415, 790461914, 0420279, 3859970 ####[address] [place] [address] Monocytes/Leukocytes Auto (Bld) [Pure # fraction] 1.2 E9/L High 0.2-1.0 [facility] Comment on above: Order Comment: Order Added by Discern Expert. Performed By: #### 1 4426390, 9360611, 395986287, 8354848, 4751053 ####[address] [address] Neutrophils/100 WBC (Bld) 72.5 % Normal 36.0-75.0 [facility] Comment on above: Order Comment: Order Added by Discern Expert. Performed By: #### 1 3464688, 4258400, 085543423, 4377569, 3499790 ####[address] [place] [address] Neutrophils/Leukocytes Auto (Bld) [Pure # fraction] 9.0 E9/L High 2.0-7.5 [facility] Comment on above: Order Comment: Order Added by Discern Expert. Performed By: #### 1 0117967, 7382086, 531753639, 3720072, 3775167 ####[address] [address] CBC w/ Auto Diffon Erythrocyte distribution width (RBC) [Ratio] 15.0 % High 10.9-14.2 [facility] Comment on above: Performed By: #### 1 7860962, 0437573, 273578244, 7770751, 5521476 ####[address] [address] Hematocrit (Bld) [Volume fraction] 45.2 % Normal 37.7-49.0 [facility] Comment on above: Performed By: #### 1 6979231, 2877370, 482957630, 4267203, 5088859 ####[address] [place] [address] Hemoglobin (Bld) [Mass/Vol] 14.8 g/dL Normal 13.5-17.5 [facility] Comment on above: Performed By: #### 1 1989498, 1813867, 397675982, 2512678, 0400121 ####[address] [place] [address] MCH (RBC) [Entitic mass] 27.8 pg Normal 27.0-34.0 [facility] Comment on above: Performed By: #### 1 9247826, 7802840, 644046234, 5676923, 3355428 ####[facility] [address] [place] [address] MCHC (RBC) [Mass/Vol] 32.7 g/dL Normal 31.4-36.0 [facility] Comment on above: Performed By: #### 1 0377563, 8413258, 350608352, 8193684, 2772378 ####[address] [address] MCV (RBC) [Entitic vol] 85.0 fL Normal 80.0-100.0 [facility] Comment on above: Performed By: #### 1 7369563, 0703996, 099230587, 4561929, 4524561 ####[address] [address] Platelet mean volume (Bld) [Entitic vol] 9.4 fL Normal 6.4-10.8 [facility] Comment on above: Performed By: #### 1 7477861, 0571174, 093431597, 9482096, 7079000 ####[address] [address] Platelets (Bld) [#/Vol] 193.0 E9/L Normal 150.0-500.0 [facility] Comment on above: Performed By: #### 1 9948794, 7897535, 378772272, 4638669, 5712108 ####[address] [address] RBC (Bld) [#/Vol] 5.3 E12/L Normal 4.3-5.9 [facility] Comment on above: Performed By: #### 1 1614749, 6304789, 737999728, 8490832, 1666397 ####[address] [address] WBC corrected for nucl RBC Auto (Bld) [#/Vol] 12.5 E9/L High 4.0-11.0 [facility] Comment on above: Performed By: #### 1 7122121, 1073899, 316433568, 3106104, 5413017 ####[facility] [address] [place] [address] CMPon 12-13-2022 Albumin [Mass/Vol] 3.6 g/dL Normal 3.3-5.0 [facility] Comment on above: Performed By: #### 1 6639003, 1416287, 541372483, 5892444, 2688842 ####[address] [place] [address] Albumin/Globulin (S) [Mass conc ratio] 1.0 Low 1.1-2.2 [facility] Comment on above: Performed By: #### 1 4406894, 4402194, 351318641, 8371974, 7294920 ####[address] [place] [address] ALP [Catalytic activity/Vol] 49 Int._Unit/L Normal 21-98 [facility] Comment on above: Performed By: #### 1 1050280, 0170782, 927722707, 4062550, 6187779 ####[facility] [address] [place] [address] ALT No additional P-5'-P [Catalytic activity/Vol] 21 Int._Unit/L Normal 6-46 [facility] Comment on above: Performed By: #### 1 8966450, 3075418, 558631340, 5994144, 6544599 ####[address] [place] [address] Anion gap [Moles/Vol] 16 mmol/L Normal 6-16 [facility] Comment on above: Performed By: #### 1 2258534, 3291750, 359494111, 0916996, 5518770 ####[facility] [address] [place] [address] AST [Catalytic activity/Vol] 21 Int._Unit/L Normal 5-43 [facility] Comment on above: Performed By: #### 1 8517532, 9235991, 816045553, 1268660, 9518773 ####[facility] [address] [place] [address] Bilirubin [Mass/Vol] 0.6 mg/dL Normal 0.0-1.1 [facility] Comment on above: Performed By: #### 1 2831435, 5673015, 737664303, 2323110, 9505067 ####[facility] [address] [place] [address] Calcium [Mass/Vol] 9.4 mg/dL Normal 8.9-11.1 [facility] Comment on above: Performed By: #### 1 2145525, 9008047, 366934993, 1904097, 5407466 ####[facility] [address] [place] [address] Chloride [Moles/Vol] 99 mmol/L Low 101-111 [facility] Comment on above: Performed By: #### 1 2436200, 0247427, 201599855, 3606775, 6946599 ####[facility] [address] [facility] [place] [address] CO2 [Moles/Vol] 31 mmol/L Normal 21-31 [facility] Comment on above: Performed By: #### 1 8703313, 7618907, 148904964, 9712829, 2253520 ####[facility] [address] [place] [address] Creatinine [Mass/Vol] 1.5 mg/dL High 0.5-1.3 [facility] Comment on above: Performed By: #### 1 3228099, 2740861, 745375457, 9953743, 7918870 ####[facility] [address] [place] [address] Globulin (S) [Mass/Vol] 3.7 g/dL Normal 1.4-4.0 [facility] Comment on above: Performed By: #### 1 7089702, 6076792, 889774699, 8137325, 4748543 ####[facility] [address] [place] [address] Glucose [Mass/Vol] 128 mg/dL Normal 55-199 [facility] Comment on above: Result Comment: If t his glucose result represents a fasting glucose, interpretation should refer to the following reference range: 55-99 mg/dL Performed By: #### 1 5725368, 8424306, 155514902, 6160009, 5381645 ####[facility] [address] [place] [address] Potassium [Moles/Vol] 4.1 mmol/L Normal 3.5-5.3 [facility] Comment on above: Performed By: #### 1 7977386, 7082665, 422650840, 7326580, 5586817 ####[facility] [address] [place] [address] Protein [Mass/Vol] 7.3 g/dL Normal 6.0-7.8 [facility] Comment on above: Performed By: #### 1 0046632, 0908323, 218181912, 2512756, 6411427 ####[facility] [address] [place] [address] Sodium [Moles/Vol] 142 mmol/L Normal 135-145 [facility] Comment on above: Performed By: #### 1 9374620, 5239622, 854028220, 8013702, 2647580 ####[facility] [address] [place] [address] Urea nitrogen [Mass/Vol] 57 mg/dL High 5-21 [facility] Comment on above: Performed By: #### 1 8736671, 3841899, 807489226, 0650154, 4629035 ####[facility] [address] [place] [address] Urea nitrogen/Creatinine [Mass ratio] 38 No Units High 10-20 [facility] Comment on above: Performed By: #### 1 9440941, 1474857, 492864488, 8023519, 7150264 ####[facility] [address] [place] [address] Capillary Glucose POCon 07-2 Glucose [Mass/Vol] 256 mg/dL High 55 [facility] Comment on above: Result Comment: Yazmin bri Meter Performed By: #### 2 26865788 ####[facility] [address] [place] [address] Glucose [Mass/Vol] 152 mg/dL High [facility] Comment on above: Result Comment: Yazmin bri Meter Performed By: #### 2 96612301 ####[facility] [address] [place] [address] BojL0dmx 12-13-2022 HbA1c (Bld) [Mass fraction] 6.5 % High <=5.9 [facility] Comment on above: Performed By: #### 1 1686432, 3221108, 646781247, 6851564, 1495477 ####[facility] [address] [place] [address] eGFRon 12-13-2022 GFR/1.73 sq M.predicted among non-blacks MDRD (S/P/Bld) [Vol rate/Area] 47 mL/min/1.73 m2 Low >=59 [facility] Comment on above: Order Comment: Order added by Discern Expert. Result Comment: Interventional Nurse earnest kidney disease could be indicated at eGFR's of less than 60 mL/min/1.73m2. Kidney failure is indicated at less than 15 mL/min/1.73m2. Performed By: #### 1 [id number], [id number], [id number], 9602804, [id number] ####[facility] [address] [place] [address] Capillary Glucose POCon 11-22 Glucose [Mass/Vol] 212 mg/dL High 55- [facility] Comment on above: Result Comment: Yazmin bri Meter Performed By: #### 2 [id number] ####[facility] [address] [place] [address] Glucose [Mass/Vol] 161 mg/dL High 55- [facility] Comment on above: Result Comment: Yazmin bri Meter Performed By: #### 2 [id number] ####[facility] [address] [place] [address] Capillary Glucose POCon 11-22 Glucose [Mass/Vol] 206 mg/dL [address] Comment on above: Result Comment: Yazmin bri Meter Performed By: #### 2 [id number] ####[facility] [address]ugwd276 [place] [address] Glucose [Mass/Vol] 152 mg/dL [address] Comment on above: Result Comment: Yazmin bri Meter Performed By: #### 2 [id number] ####[facility] Ifadgpxjdm052 [place] [address] Capillary Glucose POCon 11-22 Glucose [Mass/Vol] 140 mg/dL [address] Comment on above: Result Comment: Yazmin bri Meter Performed By: #### 2 [id number] ####[facility] [address]bkxlb[address] [place] [address] Capillary Glucose POCon 11-21 Glucose [Mass/Vol] 243 mg/dL [address] Comment on above: Result Comment: Yazmin bri Meter Performed By: #### 2 [id number] ####[facility] Tcnwkgvmop[address]46 [place] [address] Glucose [Mass/Vol] 157 mg/dL [address] Comment on above: Result Comment: Yazmin bri Meter Performed By: #### 2 [id number] ####[facility] [address]krvir[address] [place] [address] Capillary Glucose POCon 11-21 Glucose [Mass/Vol] 181 mg/dL [address] Comment on above: Result Comment: Yazmin bri Meter Performed By: #### 2 [id number] ####[facility] [address] [facility] [place] [address] Capillary Glucose POCon 11-21 Glucose [Mass/Vol] 149 mg/dL [address] Comment on above: Result Comment: Yazmin bri Meter Performed By: #### 2 [id number] ####[facility] Asysccfche[address] [place] [address] Glucose [Mass/Vol] 164 mg/dL [address] Comment on above: Result Comment: Yazmin bri Meter Performed By: #### 2 [id number] ####[facility] Cecq[address]if[address] [place] [address] Capillary Glucose POCon 11-21 Glucose [Mass/Vol] 265 mg/dL High [address] [place] [address] Comment on above: Result Comment: Yazmin bri Meter Performed By: #### 2 [id number] ####[facility] [address]esfq[address] [place] [address] Glucose [Mass/Vol] 129 mg/dL [address] Comment on above: Result Comment: Yazmin bri Meter Performed By: #### 2 [id number] ####[facility] [address] [place] [address] Family Medicine Office/Clini c Noteon 12-06-2022 Family Medicine Office/Clinic Note Normal [facility] Comment on above: Result Comment: Elec tronically Signed By: SHAISTA POTTS, Donta\.br\Date and Time Signed: 12/06/22 21:11 EDT Capillary Glucose POCon 11-21 Glucose [Mass/Vol] 196 mg/dL [address] Comment on above: Result Comment: Yazmin bri Meter Performed By: #### 2 [id number] ####[facility] [address] [place] [address] Glucose [Mass/Vol] 159 mg/dL [address] Comment on above: Result Comment: Yazmin bri Meter Performed By: #### 2 [id number] ####[facility] [address]ugf[address] [place] [address] Capillary Glucose POCon 11-21 Glucose [Mass/Vol] 195 mg/dL [address] Comment on above: Result Comment: Gareth GARDINER Performed By: #### 2 [id number] ####[facility] [address] [place] [address] Insurance Correspondence Off iceon 12-04-2022 Insurance Correspondence Office [id number]#1. 00CD:127 Normal [facility] Physician Orderon 12-03-2022 Physician Order [id number]#1. 00CD:127 Normal [facility] CHEMISTRYOrdered By: Lab ROP User on 12-02-2022 Glucose [Mass/Vol] 227 mg/dL High 55 - 99 mg/dL [facility] P[facility] Subsection Comment on above: Result Comment: Gareth GARDINER POC Device SN [id number] Invalid Interpretation Code FT POC Subsection POC User ID [id number] Invalid Interpretation Code [facility] POC Subsection POC Username KINGSTON JAMISON Invalid Interpretation Code [facility] POC Subsection Glucose [Mass/Vol] 127 mg/dL High 55 - 99 mg/dL [facility]OC Subsection Comment on above: Result Comment: Gareth GARDINER POC Device SN [id number] Invalid Interpretation Code FT POC Subsection POC User ID [id number] Invalid Interpretation Code [facility] POC Subsection POC Username TOYIN REYNOLDS Invalid Interpretation Code [facility] POC Subsection Capillary Glucose POCon 11-21 Glucose [Mass/Vol] 227 mg/dL High 55-99 [facility] Comment on above: Result Comment: Gareth GARDINER Performed By: #### 2 [id number] ####[facility] [address]fjbne[address]bb[address] [place] [address] Glucose [Mass/Vol] 127 mg/dL High 55-99 [facility] Comment on above: Result Comment: Gareth GARDINER Performed By: #### 2 [id number] ####[facility] [address]zbps[address] [place] [address] Coding Queryon 12-02-2022 Coding Query Normal [facility] Discharge Note-Nursingon Discharge Note-Nursing Normal [facility] Inpatient Clinical Summaryon 12-02-2022 Inpatient Clinical Summary Normal [facility] Inpatient Patient Summaryon 12-02-2022 Inpatient Patient Summary Normal [facility] Insurance Correspondence Off iceon 12-02-2022 Insurance Correspondence Office [id number]#[id number] CD:127 Normal [facility] Interdisciplinary Note - Santosh e Manageron 12-02-2022 Interdisciplinary Note - Computer Clerk [facility] Comment on above: Result Comment: Elec tronically Signed By: Dank HAYDEN, Lisa\.br\Date and Time Signed: 12/02/22 09:31 EDT Monitor Recordon 12-02-2022 Monitor Record [id number]#1. 00CD:127 Normal [facility] Physician Orderon 12-02-2022 Physician Order [id number]#1. 00CD:127 Normal [facility] Progress Note-Physicianon Progress Note-Physician [facility] Comment on above: Result Comment: Elec tronically Signed By: Adeline COLEMAN\.br\Date and Time Signed: 12/01/22 18:43 EDT\.br\Electronically Co-Signed By: Juan Hdz DO\.br\Date and Time Co-Signed: 12/02/22 07:20 EDT Transfer Documentson 023 Transfer Documents [id number]#1. 00CD:127 Normal [facility] BMPon 12-01-2022 Anion gap [Moles/Vol] 13 mmol/L Normal 6-16 [facility] Comment on above: Performed By: #### 1 [id number], 0238180, 8810314, 0240107 ####[facility] [address] [place] [address] Calcium [Mass/Vol] 9.1 mg/dL Normal 8.9-11.1 [facility] Comment on above: Performed By: #### 1 [id number], 1809644, 5593270, 1833343 ####[facility] [address] [place] [address] Chloride [Moles/Vol] 102 mmol/L Normal 101-111 [facility] Comment on above: Performed By: #### 1 [id number], 8067687, 8349423, 5096965 ####[facility] [address] [place] [address] CO2 [Moles/Vol] 28 mmol/L Normal 21-31 [facility] Comment on above: Performed By: #### 1 2350556, 1578702, 7110645, 2913802 ####[facility] [address]uz[address] [place] [address] Creatinine [Mass/Vol] 1.3 mg/dL Normal 0.5-1.3 [facility] Comment on above: Performed By: #### 1 4157987, 0530221, 6631264, 0696062 ####[facility] [address] [place] [address] Glucose [Mass/Vol] 97 mg/dL Normal 55-199 [facility] Comment on above: Result Comment: If t his glucose result represents a fasting glucose, interpretation should refer to the following reference range: 55-99 mg/dL Performed By: #### 1 4850133, 8164511, 6931848, 1789092 ####[facility] [address] [place] [address] Potassium [Moles/Vol] 4.6 mmol/L Normal 3.5-5.3 [facility] Comment on above: Performed By: #### 1 [id number], 4258580, 2294165, 3264826 ####[facility] [address] [place] [address] Sodium [Moles/Vol] 138 mmol/L Normal 135-145 [facility] Comment on above: Performed By: #### 1 4437553, 3781953, 7577846, 6300766 ####[facility] [address]ytb[address] [place] [address] Urea nitrogen [Mass/Vol] 24 mg/dL High 5-21 [facility] Comment on above: Performed By: #### 1 8189364, 1623290, 0564360, 9793169 ####[facility] [address]ym[address] [place] [address] Urea nitrogen/Creatinine [Mass ratio] 18 No Units Normal 10-20 [facility] Comment on above: Performed By: #### 1 [id number], 7804835, 6014952, 5251498 ####[facility] [address] [place] [address] CHEMISTRYOrdered By: Lab ROP User on 12-01-2022 Glucose [Mass/Vol] 114 mg/dL High 55 - 99 mg/dL [facility] POC Subsection Comment on above: Result Comment: Gareth guerrero RN/ POC Device SN [id number] Invalid Interpretation Code [facility] POC Subsection POC User ID [id number] Invalid Interpretation Code [facility] POC Subsection POC Username NETO CHEEK Invalid Interpretation Code [facility] POC Subsection CHEMISTRYOrdered By: SYSTEM SYSTEM on 12-01-2022 Anion gap [Moles/Vol] 13 mmol/L Normal 6 - 16 mEq/L [facility] Remisol Calcium [Mass/Vol] 9.1 mg/dL Normal 8.9 - 11. 1 mg/dL [facility] Chloride [Moles/Vol] 102 mmol/L Normal 101 - 1 11 mmol/L [facility] CK [Catalytic activity/Vol] 211 [iU]/d Normal 14 - 261 Int._Unit/L [facility] Remisol CO2 [Moles/Vol] 28 mmol/L Normal 21 - 31 mmol/L [facility] Creatinine [Mass/Vol] 1.3 mg/dL Normal 0.5 - 1.3 mg/dL [facility] Remisol GFR/1.73 sq M.predicted among non-blacks MDRD (S/P/Bld) [Vol rate/Area] 56 mL/min/1.73 m2 Low >=59mL/min/ 1.73 m2 [facility] Chem S Glucose [Mass/Vol] 97 mg/dL Normal 55 - 199 mg/dL [facility] Magnesium [Mass/Vol] 2.1 mg/dL Normal 1.3 - 2 .4 mg/dL [facility] Potassium [Moles/Vol] 4.6 mmol/L Normal 3.5 - 5.3 mmol/L [facility] Remisol Sodium [Moles/Vol] 138 mmol/L Normal 135 - 145 mmol/L [facility] Remisol Urea nitrogen [Mass/Vol] 24 mg/dL High 5 - 21 mg/dL [facility] Remisol Urea nitrogen/Creatinine [Mass ratio] 18 mg/mg Normal 10 - 20 [facility] Remisol CKon 12-01-2022 CK [Catalytic activity/Vol] 211 Int._Unit/L Normal 14-261 [facility] Comment on above: Performed By: #### 1 [id number], 1380513, 3816978, 7880111 ####[facility] [address] [place] [address] Capillary Glucose POCon 11-21 Glucose [Mass/Vol] 114 mg/dL High 55-99 [facility] Comment on above: Result Comment: Gareth GARDINER Performed By: #### 2 [id number] ####[facility] [address] [place] [address] Glucose [Mass/Vol] 193 mg/dL High 55-99 [facility] Comment on above: Result Comment: Gareth GARDINER Performed By: #### 2 [id number] ####[facility] [address] [place] [address] Glucose [Mass/Vol] 203 mg/dL High 55-99 [facility] Comment on above: Result Comment: Gareth GARDINER Performed By: #### 2 [id number] ####[facility] [address] [place] [address] Glucose [Mass/Vol] 110 mg/dL High 55-99 [facility] Comment on above: Result Comment: Gareth GARDINER Performed By: #### 2 [id number] ####[facility] [address] [place] [address] Interdisciplinary Note - Santosh e Manageron 12-01-2022 Interdisciplinary Note - Computer 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 Pt is accepted to [facility] side, pending precert at this time. Contact information provided and white board updated, CRM following Normal [facility] Comment on above: Result Comment: Elec tronically Signed By: Dank HAYDEN, Lisa\.br\Date and Time Signed: 12/01/22 08:20 EDT Ionized Calciumon 12-01-2022 Calcium.ionized ISE [Mass/Vol] 4.8 mg/dL Invalid Interpretation Code 4.5-5.6 [facility] Comment on above: Result Comment: Perf ormed at: [facility] [address] [place], [place] [id number] PhD Michael Cortes Performed By: #### 2 [id number], 5901311, 4588544, 96057692, 93624916, 4730395, 86021322, 9311962, 64846742, [id number], 7006951, 4114881 ####[facility] [address] [place] [address] Magnesiumon 12-01-2022 Magnesium [Mass/Vol] 2.1 mg/dL Normal 1.3-2.4 [facility] Comment on above: Performed By: #### 1 0793682, 1584510, 3988849, 1272158 ####[facility] [address] [place] [address] Progress Note-Physicianon Progress Note-Physician Normal [facility] Comment on above: Result Comment: Elec tronically Signed By: Pao POTTS, Lizeth\.br\Date and Time Signed: 12/01/22 12:41 EDT XR Abdomen 1 Viewon 12-02-19 23 XR Abdomen 1 View Normal [facility] eGFRon 12-01-2022 GFR/1.73 sq M.predicted among non-blacks MDRD (S/P/Bld) [Vol rate/Area] 56 mL/min/1.73 m2 Low >=59 [facility] Comment on above: Order Comment: Order added by Discern Expert. Result Comment: Interventional Nurse earnest kidney disease could be indicated at eGFR's of less than 60 mL/min/1.73m2. Kidney failure is indicated at less than 15 mL/min/1.73m2. Performed By: #### 1 [id number], 2929381, 8675326, 0166416 ####[facility] [address] [place] [address] BMPon 11-30-2022 Anion gap [Moles/Vol] 11 mmol/L Normal 6-16 [facility] Comment on above: Performed By: #### 2 300472, 5881827, 34779561 ####[facility] [address] [place] [address] Calcium [Mass/Vol] 9.0 mg/dL Normal 8.9-11.1 [facility] Comment on above: Performed By: #### 2 759749, 7370504, 44112489 ####[facility] [address] [place] [address] Chloride [Moles/Vol] 102 mmol/L Normal 101-111 [facility] Comment on above: Performed By: #### 2 946562, 4826606, 93542903 ####[facility] [address] [place] [address] CO2 [Moles/Vol] 31 mmol/L Normal 21-31 [facility] Comment on above: Performed By: #### 2 229586, 1564044, 86093486 ####[facility] [address] [place] [address] Creatinine [Mass/Vol] 1.1 mg/dL Normal 0.5-1.3 [facility] Comment on above: Performed By: #### 2 327434, 0183645, 69556169 ####[facility] [address] [place] [address] Glucose [Mass/Vol] 114 mg/dL Normal 55-199 [facility] Comment on above: Result Comment: If t his glucose result represents a fasting glucose, interpretation should refer to the following reference range: 55-99 mg/dL Performed By: #### 2 429302, 4678479, 54738480 ####[facility] [address] [place] [address] Potassium [Moles/Vol] 3.4 mmol/L Low 3.5-5.3 [facility] Comment on above: Performed By: #### 2 822580, 4551606, 68754236 ####[facility] [address] [place] [address] Sodium [Moles/Vol] 141 mmol/L Normal 135-145 [facility] Comment on above: Performed By: #### 2 304287, 7673364, 61213045 ####[facility] G[address]fx[address]ctgb[address] [place] [address] Urea nitrogen [Mass/Vol] 23 mg/dL High 5-21 [facility] Comment on above: Performed By: #### 2 029281, 9108843, 86150099 ####[facility] [address]smjb[address]of[address] [place] [address] Urea nitrogen/Creatinine [Mass ratio] 21 No Units High 10-20 [facility] Comment on above: Performed By: #### 2 066786, 5644845, 10953923 ####[facility] [address]faqqlj[address] [place] [address] CHEMISTRYOrdered By: SYSTEM SYSTEM on 11-30-2022 Anion gap [Moles/Vol] 11 mmol/L Normal 6 - 16 mEq/L [facility] Remisol Calcium [Mass/Vol] 9.0 mg/dL Normal 8.9 - 11. 1 mg/dL [facility] Remisol Chloride [Moles/Vol] 102 mmol/L Normal 101 - 1 11 mmol/L [facility] Remisol CO2 [Moles/Vol] 31 mmol/L Normal 21 - 31 mmol/L [facility] Remisol Creatinine [Mass/Vol] 1.1 mg/dL Normal 0.5 - 1.3 mg/dL [facility] Remisol GFR/1.73 sq M.predicted among non-blacks MDRD (S/P/Bld) [Vol rate/Area] 69 mL/min/1.73 m2 Normal >=59mL/min/ 1.73 m2 [facility] Chem S Glucose [Mass/Vol] 114 mg/dL Normal 55 - 199 mg/dL [facility] Magnesium [Mass/Vol] 1.8 mg/dL Normal 1.3 - 2 .4 mg/dL [facility] Remisol Potassium [Moles/Vol] 3.4 mmol/L Low 3.5 - 5.3 mmol/L [facility] Remisol Sodium [Moles/Vol] 141 mmol/L Normal 135 - 145 mmol/L [facility] Remisol Urea nitrogen [Mass/Vol] 23 mg/dL High 5 - 21 mg/dL [facility] Remisol Urea nitrogen/Creatinine [Mass ratio] 21 mg/mg High 10 - 20 [facility] Remisol Capillary Glucose POCon 11-21 Glucose [Mass/Vol] 194 mg/dL High 55-99 [facility] Comment on above: Result Comment: Gareth GARDINER Performed By: #### 2 [id number] ####[facility] [address] [place] [address] Glucose [Mass/Vol] 96 mg/dL Normal 55-99 [facility] Comment on above: Performed By: #### 2 [id number] ####[facility] [address]ou[address] [place] [address] Glucose [Mass/Vol] 130 mg/dL High 55-99 [facility] Comment on above: Result Comment: Gareth GARDINER Performed By: #### 2 [id number] ####[facility] K[address]wafl[address] [place] [address] Glucose [Mass/Vol] 113 mg/dL High 55-99 [facility] Comment on above: Result Comment: Gareth GARDINER Performed By: #### 2 [id number] ####[facility] [address] [place] [address] Echo Transthoracic Completeo n 11-30-2022 Echo Transthoracic Complete Normal [facility] Insurance Correspondence Off iceon 11-30-2022 Insurance Correspondence Office [id number] 0CD:127 Normal [facility] Interdisciplinary Note - Santosh e Manageron 11-30-2022 Interdisciplinary Note - Computer Clerk Normal [facility] Comment on above: Result Comment: Elec tronically Signed By: Dank HAYDEN, Lisa\.br\Date and Time Signed: 11/30/22 10:48 EDT Magnesiumon 11-30-2022 Magnesium [Mass/Vol] 1.8 mg/dL Normal 1.3-2.4 [facility] Comment on above: Performed By: #### 2 172140, 8114991, 38273551 ####[facility] [address] [place] [address] Message from Medicareon 11-21 Message from Medicare [id number]#1.0 0CD:127 Normal [facility] Progress Note-Physicianon Progress Note-Physician Normal [facility] Comment on above: Result Comment: Elec tronically Signed By: Joanie Jiménez MD\.br\Date and Time Signed: 11/30/22 15:13 EDT Progress Note-Physician Normal [facility] Comment on above: Result Comment: Elec tronically Signed By: Lizeth Cedeno MD\.br\Date and Time Signed: 11/30/22 14:52 EDT UA With Cult Reflexon 2022 Bacteria LM Ql (Urine sed) TRACE Normal Trace [facility] Comment on above: Order Comment: Urina ry Catheter Insertion triggered Urinalysis With Culture Reflex order by discern. Performed By: #### 1 [id number] ####[facility] [address]bescxy[address] [place] [address] Bilirubin Ql (U) Negative Normal Negative [facility] Comment on above: Order Comment: Urina ry Catheter Insertion triggered Urinalysis With Culture Reflex order by discern. Performed By: #### 1 [id number] ####[facility] [address]qwxojn[address] [place] [address] Clarity (U) CLEAR Normal Clear [facility] Comment on above: Order Comment: Urina ry Catheter Insertion triggered Urinalysis With Culture Reflex order by discern. Performed By: #### 1 [id number] ####[facility] [address] [place] [address] Color (U) YELLOW Normal Yellow [facility] Comment on above: Order Comment: Urina ry Catheter Insertion triggered Urinalysis With Culture Reflex order by discern. Performed By: #### 1 [id number] ####[facility] [address] [place] [address] Epithelial cells.squamous LM.HPF (Urine sed) [#/Area] 0-2 Normal 0-2 [facility] Comment on above: Order Comment: Urina ry Catheter Insertion triggered Urinalysis With Culture Reflex order by discern. Performed By: #### 1 6404986 ####[facility] [address] [place] [address] Glucose Test strip (U) [Mass/Vol] Negative Normal Negative [facility] Comment on above: Order Comment: Urina ry Catheter Insertion triggered Urinalysis With Culture Reflex order by discern. Performed By: #### 1 7475581 ####[address] [address] Hemoglobin Ql (U) Negative Normal Negative [facility] Comment on above: Order Comment: Urina ry Catheter Insertion triggered Urinalysis With Culture Reflex order by discern. Performed By: #### 1 [id number] ####[address] [address] Ketones (U) [Mass/Vol] Negative Normal Negative [facility] Comment on above: Order Comment: Urina ry Catheter Insertion triggered Urinalysis With Culture Reflex order by discern. Performed By: #### 1 8233670 ####[address] [address] [place].plasma/[place].R BC (Bld) [Mass ratio] 0-3 Normal 0-3 [facility] Comment on above: Order Comment: Urina ry Catheter Insertion triggered Urinalysis With Culture Reflex order by discern. Performed By: #### 1 0847979 ####[facility] [address] [place] [address] Nitrite Ql (U) Negative Normal Negative [facility] Comment on above: Order Comment: Urina ry Catheter Insertion triggered Urinalysis With Culture Reflex order by discern. Performed By: #### 1 [id number] ####[place] [address] [place] [address] pH (U) 6.0 [pH] Invalid Interpretation Code 5.0-9.0 [facility] Comment on above: Order Comment: Urina ry Catheter Insertion triggered Urinalysis With Culture Reflex order by discern. Performed By: #### 1 [id number] ####[address] [address] Protein (U) [Mass/Vol] Negative Normal Negative [facility] Comment on above: Order Comment: Urina ry Catheter Insertion triggered Urinalysis With Culture Reflex order by discern. Performed By: #### 1 2907571 ####[address] [address] Specific gravity (U) [Rel density] 1.010 Invalid Interpretation Code 1.005-1.030 [facility] Comment on above: Order Comment: Urina ry Catheter Insertion triggered Urinalysis With Culture Reflex order by discern. Performed By: #### 1 [id number] ####[address] [address] Type of Urine collection method Red Normal [facility] System Comment on above: Order Comment: Urina ry Catheter Insertion triggered Urinalysis With Culture Reflex order by discern. Performed By: #### 1 [id number] ####[address] [address] Urobilinogen Qn (U) 0.2 {Lei'U}/dL Normal 0.0-1.0 [facility] Comment on above: Order Comment: Urina ry Catheter Insertion triggered Urinalysis With Culture Reflex order by discern. Performed By: #### 1 [id number] ####[address] [address] WBC Auto Ql (U) Negative Normal Negative [facility] Comment on above: Order Comment: Urina ry Catheter Insertion triggered Urinalysis With Culture Reflex order by discern. Performed By: #### 1 [id number] ####[address] [address] WBC casts LM.LPF (Urine sed) [#/Area] 0-3 Normal [facility] Comment on above: Order Comment: Urina ry Catheter Insertion triggered Urinalysis With Culture Reflex order by discern. Performed By: #### 1 [id number] ####[facility] [address] [place] [address] WBC LM.HPF (Urine sed) [#/Area] 0-5 Normal 0-5 [facility] Comment on above: Order Comment: Urina ry Catheter Insertion triggered Urinalysis With Culture Reflex order by discern. Performed By: #### 1 [id number] ####[facility] [address] [place] [address] URINALYSISOrdered By: Houston Castillo on 11-30-2022 Bacteria [...] AM) Normal Negative [facility] UA Auto SS [place].plasma/[place].R BC (Bld) [Mass ratio] 0-3 /HPF Normal [...] AM) Invalid Interpretation Code 1.005 - 1.030 [facility] UA Auto SS UA Spec Desc Red (11/30/22 11:00 AM) Normal [facility] UA Auto SS Urobilinogen Qn (U) 0.1050002 {Lei'U}/dL Normal 0.0 - 1.0 EU/dL [facility] UA Auto SS WBC Auto Ql (U) Negative (11/30/22 11:00 AM) Normal Negative [facility] UA Auto SS WBC casts LM.LPF (Urine sed) [#/Area] 0-3 (11/30/22 11:00 AM) Normal [facility] UA Auto SS WBC LM.HPF (Urine sed) [#/Area] 0-5 /HPF Normal 0-5/HPF [facility] UA Auto SS eGFRon 11-30-2022 GFR/1.73 sq M.predicted among non-blacks MDRD (S/P/Bld) [Vol rate/Area] 69 mL/min/1.73 m2 Normal >=59 [facility] Comment on above: Order Comment: Order added by Discern Expert. Result Comment: Interventional Nurse earnest kidney disease could be indicated at eGFR's of less than 60 mL/min/1.73m2. Kidney failure is indicated at less than 15 mL/min/1.73m2. Performed By: #### 2 656353, 8055079, [id number] ####[facility] [address] [place] [address] Auto Diffon 11-29-2022 Basophils/100 WBC (Bld) 0.5 % Normal 0.0-2.0 [facility] Comment on above: Order Comment: Order Added by Discern Expert. Performed By: #### 2 092743, 1402594, 7866136, 01073710, 77609258, 8763636, 62140142, 7611489, 57211728, 080073574, 0845690, 1314480 ####[facility] [address] [place] [address] Basophils/Leukocytes Auto (Bld) [Pure # fraction] 0.0 E9/L Normal 0.0-0.2 [facility] Comment on above: Order Comment: Order Added by Discern Expert. Performed By: #### 2 295650, 2217675, 9301266, 17541830, 30877436, 4206613, 14715233, 2840909, 67508315, 905244658, 9187994, 6019856 ####[facility] [address] [place] [address] Eosinophils/100 WBC (Bld) 8.4 % High 0.0-8.0 [facility] Comment on above: Order Comment: Order Added by Discern Expert. Performed By: #### 2 257346, 4538903, 0384937, 50029850, 52630618, 8990945, 69903181, 1395148, 94481935, 837143895, 4185730, 4606287 ####[address] [address] Eosinophils/Leukocytes Auto (Bld) [Pure # fraction] 0.6 E9/L High 0.0-0.5 [facility] Comment on above: Order Comment: Order Added by Discern Expert. Performed By: #### 2 491124, 4122537, 9713285, 91017307, 24092443, 9239714, 81236547, 9443228, 66894875, 382484675, 3810783, 4248799 ####[address] [place] [address] Lymphocytes/100 WBC (Bld) 15.8 % Normal 14.0-50.0 [facility] Comment on above: Order Comment: Order Added by Discern Expert. Performed By: #### 2 072510, 9050490, 9228881, 60075493, 68009855, 3860248, 12773582, 9984933, 53990733, 277141296, 2434944, 8173218 ####[address] [place] [address] Lymphocytes/Leukocytes Auto (Bld) [Pure # fraction] 1.2 E9/L Normal 1.0-4.0 [facility] Comment on above: Order Comment: Order Added by Discern Expert. Performed By: #### 2 557081, 6463495, 3402390, 97269931, 40409696, 4884283, 49399316, 6620009, 47056267, 925490197, 4937367, 7113714 ####[facility] [address] [place] [address] Monocytes/100 WBC (Bld) 8.4 % Normal 4.0-14.0 [facility] Comment on above: Order Comment: Order Added by Discern Expert. Performed By: #### 2 399011, 7470681, 1055159, 63581759, 34876646, 9100974, 09577663, 1286189, 54627896, 915820058, 5723106, 5000561 ####[address] [address] Monocytes/Leukocytes Auto (Bld) [Pure # fraction] 0.6 E9/L Normal 0.2-1.0 [facility] Comment on above: Order Comment: Order Added by Discern Expert. Performed By: #### 2 995637, 1097376, 2035328, 56473819, 09205464, 2556052, 94963194, 2415381, 53690294, 972483210, 7063812, 2369019 ####[facility] [address] [place] [address] Neutrophils/100 WBC (Bld) 66.9 % Normal 36.0-75.0 [facility] Comment on above: Order Comment: Order Added by Discern Expert. Performed By: #### 2 047203, 5007577, 6897698, 56380177, 93254228, 4847057, 66222472, 4812210, 38739213, 664719787, 5193314, 2561437 ####[facility] [address] [place] [address] Neutrophils/Leukocytes Auto (Bld) [Pure # fraction] 5.0 E9/L Normal 2.0-7.5 [facility] Comment on above: Order Comment: Order Added by Discern Expert. Performed By: #### 2 879178, 3197704, 4547702, 70320335, 84936593, 8535572, 79969878, 9804519, 01654097, 377824098, 7004384, 2693574 ####[facility] [address] [place] [address] BMPon 11-29-2022 Anion gap [Moles/Vol] 13 mmol/L Normal 6-16 [facility] Comment on above: Performed By: #### 2 131697, 2245998, 7473874, 16557353, 47491852, 6400418, 77442174, 0840786, 05023871, 244450256, 1065018, 6776781 ####[facility] [address] [place] [address] Calcium [Mass/Vol] 9.1 mg/dL Normal 8.9-11.1 [facility] Comment on above: Performed By: #### 2 738076, 0461118, 2144831, 30900531, 31150470, 2759582, 29210123, 0869804, 75504688, 555542822, 2687468, 9815787 ####[facility] [address] [place] [address] Chloride [Moles/Vol] 102 mmol/L Normal 101-111 [facility] Comment on above: Performed By: #### 2 842571, 3814915, 7610233, 52499209, 88183336, 1493900, 97169058, 9291953, 32415067, 399404589, 7635567, 4872476 ####[facility] [address] [place] [address] CO2 [Moles/Vol] 29 mmol/L Normal 21-31 [facility] Comment on above: Performed By: #### 2 803348, 8446194, 4252748, 02502565, 00068177, 0635879, 55749523, 8814130, 57183934, 422407021, 0866581, 2964685 ####[facility] [address] [place] [address] Creatinine [Mass/Vol] 1.1 mg/dL Normal 0.5-1.3 [facility] Comment on above: Performed By: #### 2 164887, 5016799, 8956040, 36842003, 66669552, 4077826, 66854130, 2204530, 54365348, 490402017, 5487224, 3761535 ####[facility] [address] [place] [address] Glucose [Mass/Vol] 95 mg/dL Normal 55-199 [facility] Comment on above: Result Comment: If t his glucose result represents a fasting glucose, interpretation should refer to the following reference range: 55-99 mg/dL Performed By: #### 2 306458, 3553724, 2743117, 66777395, 75918381, 0007309, 59917223, 9998324, 37135232, 569809692, 1480702, 5952706 ####[facility] [address] [place] [address] Potassium [Moles/Vol] 3.9 mmol/L Normal 3.5-5.3 [facility] Comment on above: Performed By: #### 2 126668, 1773220, 6535101, 07834197, 59697351, 4422101, 46412708, 1144798, 45649040, 437332207, 9290171, 5165848 ####[facility] [address] [place] [address] Sodium [Moles/Vol] 140 mmol/L Normal 135-145 [facility] Comment on above: Performed By: #### 2 025164, 5061178, 6804471, 83788424, 50053226, 7569996, 31986304, 9938353, 17344211, 601633060, 3511005, 9670578 ####[facility] [address] [place] [address] Urea nitrogen [Mass/Vol] 16 mg/dL Normal 5-21 [facility] Comment on above: Performed By: #### 2 091759, 0507965, 7487120, 45154087, 68112853, 2438088, 02671249, 4622779, 62673527, 041042316, 9945910, 6700371 ####[facility] [address] [place] [address] Urea nitrogen/Creatinine [Mass ratio] 14 No Units Normal 10-20 [facility] Comment on above: Performed By: #### 2 317543, 3425336, 5833953, 14649491, 24311170, 8121040, 93681533, 2882997, 84348517, 936811001, 4136579, 5265071 ####[facility] [address] [place] [address] BNPon 11-29-2022 Natriuretic peptide B (Bld) [Mass/Vol] 855 pg/mL High 5-80 [facility] Comment on above: Performed By: #### 2 027602, 8762292, 3817857, 03305193, 10101263, 0972848, 28846985, 9285273, 97585248, 447443916, 8839063, 9247404 ####[facility] [address] [place] [address] CBC w/ Auto Diffon 3 Erythrocyte distribution width (RBC) [Ratio] 14.9 % High 10.9-14.2 [facility] Comment on above: Performed By: #### 2 656623, 4460060, 9128783, 04398978, 08813886, 1840073, 45220483, 8791191, 36507406, 248041306, 1517025, 0112026 ####[facility] [address] [place] [address] Hematocrit (Bld) [Volume fraction] 38.1 % Normal 37.7-49.0 [facility] Comment on above: Performed By: #### 2 967443, 7613815, 3294158, 98828435, 58332502, 0228469, 78815475, 7197554, 12084322, 324327422, 6171635, 0465680 ####[facility] [address] [place] [address] Hemoglobin (Bld) [Mass/Vol] 12.8 g/dL Low 13.5-17.5 [facility] Comment on above: Performed By: #### 2 981274, 3979114, 1698033, 35300583, 97230966, 6823852, 14367731, 6032076, 33758506, 016576715, 8120710, 0378558 ####[facility] [address] [place] [address] MCH (RBC) [Entitic mass] 29.0 pg Normal 27.0-34.0 [facility] Comment on above: Performed By: #### 2 886697, 1103944, 2410151, 82095935, 25929145, 6591962, 63974298, 0281131, 19467335, 126784002, 7906422, 5217300 ####[address] [address] MCHC (RBC) [Mass/Vol] 33.7 g/dL Normal 31.4-36.0 [facility] Comment on above: Performed By: #### 2 463947, 0270031, 6940886, 27883903, 46585240, 5924477, 03635430, 3652121, 21610003, 857767536, 0677489, 6462819 ####[facility] [address] [place] [address] MCV (RBC) [Entitic vol] 86.1 fL Normal 80.0-100.0 [facility] Comment on above: Performed By: #### 2 443764, 5872616, 7818535, 05184496, 64970005, 5730235, 33485849, 2521195, 42688503, 747826258, 3707683, 4244486 ####[facility] [address] [place] [address] Platelet mean volume (Bld) [Entitic vol] 10.9 fL High 6.4-10.8 [facility] Comment on above: Performed By: #### 2 704405, 9480388, 1341507, 62105955, 74621193, 9616696, 27990148, 6125512, 81629029, 183990304, 0384309, 4242653 ####[address] [place] [address] Platelets (Bld) [#/Vol] 189.0 E9/L Normal 150.0-500.0 [facility] Comment on above: Performed By: #### 2 898834, 2563379, 7940995, 46474199, 92050844, 1823490, 28312058, 3347905, 90609965, 285495563, 7974726, 7571427 ####[address] [address] RBC (Bld) [#/Vol] 4.4 E12/L Normal 4.3-5.9 [facility] Comment on above: Performed By: #### 2 470556, 8663767, 1290727, 11307507, 61105886, 7906896, 91514129, 2191774, 78270259, 590484688, 3794531, 2256978 ####[address] [place] [address] WBC corrected for nucl RBC Auto (Bld) [#/Vol] 7.4 E9/L Normal 4.0-11.0 [facility] Comment on above: Performed By: #### 2 332577, 5926567, 3466057, 28244072, 43016604, 7623587, 55998155, 2294241, 10496456, 899870900, 1219486, 2910095 ####[address] [address] CHEMISTRYOrdered By: SYSTEM SYSTEM on 11-29-2022 Albumin [...] Triglyceride [Mass/Vol] 72 mg/dL Normal <=149mg/dL [facility] Remisol TSH Qn 3.43 m[IU]/L Normal 0.34 [...] 855 pg/mL High 5 - 80 pg/mL [facility] HemeManSS CHEMISTRYOrdered By: Marian peterson DomainUser on 11-29-2022 Calcium.ionized ISE [Mass/Vol] 4.8 mg/dL Invalid Interpretation Code 4.5-5.6mg/d L [facility] SendOutsSS Comment on above: Result Comment: Perf ormed at: [facility] [address] [place], [place] [id number] PhD Chasejosie Sebastian Thon 11-29-2022 CK [Catalytic activity/Vol] 1096 Int._Unit/L Abnormal 14-261 [facility] Comment on above: Result Comment: Crit ical Result verified by repeat analysis\Critical Result S_CK:[id number] Called to MANAS BARBA AT by AMY JOHNSON and read back for confirmation at 11/29/2022 06:40:15 Performed By: #### 2 067424, 0156169, 9246772, 69228434, 57927784, 0108022, 86482924, 7523786, 46448460, 305134934, 7475920, 0563714 ####[facility] [address] [place] [address] CT Abdomen/Pelvis w/ Contras ton 11-29-2022 CT Abdomen/Pelvis w/ Contrast Normal [facility] CT Head or Brain w/o Contras ton 11-29-2022 CT Head or Brain w/o Contrast Normal [facility] CTA Cheston 11-29-2022 CTA Chest Normal [facility] Capillary Glucose POCon Glucose [Mass/Vol] 122 mg/dL High 55-99 [facility] Comment on above: Result Comment: Gareth GARDINER Performed By: #### 2 46525753 ####[facility] [address] [place] [address] Glucose [Mass/Vol] 174 mg/dL High 55-99 [facility] Comment on above: Performed By: #### 2 53917720 ####[facility] [address] [place] [address] Glucose [Mass/Vol] 107 mg/dL High 55-99 [facility] Comment on above: Result Comment: Gareth GARDINER Performed By: #### 2 60294650 ####[facility] [address] [place] [address] Consultation Noteon 11-30-19 Consultation Note Normal [facility] Comment on above: Result Comment: Elec tronically Signed By: New Velazquez MD\.br\Date and Time Signed: 11/29/22 14:44 EDT ED Clinical Summaryon 2022 ED Clinical Summary Normal Navi faye [facility] ED Note-Physicianon 11-30-19 ED Note-Physician Normal [facility] Comment on above: Result Comment: Elec tronically Signed By: Elkin Hitchcock DO.br\Date and Time Signed: 11/28/22 22:32 EDT ED Patient Education Noteon 11-29-2022 ED Patient Education Note Normal [facility] ED Patient Summaryon 023 ED Patient Summary Normal [facility] HEMATOLOGYOrdered By: SYSTEM SYSTEM on 11-29-2022 Basophils/100 [...] 11-29-2022 Albumin [Mass/Vol] 3.6 g/dL Normal 3.3-5.0 [facility] Comment on above: Performed By: #### 2 554129, 5561668, 2765963, 69687293, 47182385, 2982524, 15091747, 8128519, 06680271, 705370800, 4503566, 7075140 ####[facility] [address] [place] [address] Albumin/Globulin (S) [Mass conc ratio] 1.2 Normal 1.1-2.2 [facility] Comment on above: Performed By: #### 2 101854, 1136995, 6886448, 10462673, 10498694, 7973148, 81595757, 0156079, 05335331, 568863256, 3046303, 1869449 ####[facility] [address] [place] [address] ALP [Catalytic activity/Vol] 40 Int._Unit/L Normal 21-98 [facility] Comment on above: Performed By: #### 2 943898, 2768455, 1438246, 45355006, 88297437, 1569530, 59566680, 5127383, 52116364, 581714865, 6681459, 6536157 ####[address] [place] [address] ALT No additional P-5'-P [Catalytic activity/Vol] 17 Int._Unit/L Normal 6-46 [facility] Comment on above: Performed By: #### 2 861228, 7073591, 0347496, 79268949, 66864343, 5064024, 49224445, 5175246, 29425740, 538513080, 6233029, 5482214 ####[address] [address] AST [Catalytic activity/Vol] 33 Int._Unit/L Normal 5-43 [facility] Comment on above: Performed By: #### 2 011311, 3472385, 0871701, 36706480, 46889931, 9294366, 82761603, 9797286, 68145589, 204222836, 2345683, 7419025 ####[facility] [address] [place] [address] Bilirubin [Mass/Vol] 1.1 mg/dL Normal 0.0-1.1 [facility] Comment on above: Performed By: #### 2 781730, 3204805, 5657535, 79865765, 83499032, 0935580, 01092291, 2388914, 75127517, 796968890, 2791528, 0689041 ####[address] [place] [address] Bilirubin.direct [Mass/Vol] 0.2 mg/dL Normal 0.1-0.4 [facility] Comment on above: Performed By: #### 2 475867, 2587299, 2965532, 22050390, 71330031, 6415635, 98462041, 8154848, 81565974, 547075206, 3651460, 0593960 ####[facility] [address] [place] [address] Bilirubin.indirect [Mass or moles/Vol] 0.9 mg/dL Normal 0.1-0.9 [facility] Comment on above: Performed By: #### 2 361422, 7641569, 9262478, 69538879, 62246417, 6738853, 17837991, 7733687, 89963234, 230505170, 7032018, 4702818 ####[facility] [address] [place] [address] Globulin (S) [Mass/Vol] 3.1 g/dL Normal 1.4-4.0 [facility] Comment on above: Performed By: #### 2 106388, 8935914, 4839042, 46957997, 52769841, 6768991, 99625328, 4656198, 39015040, 177142077, 5585019, 6505524 ####[facility] [address] [place] [address] Protein [Mass/Vol] 6.7 g/dL Normal 6.0-7.8 [facility] Comment on above: Performed By: #### 2 229931, 1189209, 5568361, 20853440, 27399061, 2778628, 11727444, 3158999, 82071012, 342160070, 1552004, 8569155 ####[facility] [address] [place] [address] Interdisciplinary Note - Santosh e Manageron 11-29-2022 Interdisciplinary Note - Computer Clerk Normal [facility] Comment on above: Result Comment: Elec tronically Signed By: Jose RN, Norma\.br\Date and Time Signed: 11/29/22 15:07 EDT Lipid Panelon 11-29-2022 Cholesterol [Mass/Vol] 114 mg/dL Low 120-200 [facility] Comment on above: Performed By: #### 2 362081, 2202815, 3530344, 54121563, 96740196, 9578000, 89482502, 8306118, 40816757, 493124886, 3570073, 2209309 ####[facility] [address] [place] [address] Cholesterol in HDL [Mass/Vol] 50 mg/dL Invalid Interpretation Code [facility] Comment on above: Result Comment: HDL > or equal to 60 mg/dL: Low cardiovascular riskHDL < 40 mg/dL : High cardiovascular risk Performed By: #### 2 347875, 7472490, 5084406, 82643203, 67908123, 8497386, 53611959, 8476281, 23787135, 909871571, 0453995, 3775230 ####[facility] [address] [place] [address] Cholesterol in LDL [Mass/Vol] 43 mg/dL Normal <=129 [facility] Comment on above: Performed By: #### 2 020110, 3358497, 8181476, 74545105, 92470904, 2349748, 16492924, 2266105, 53963400, 566741911, 6731599, 9742384 ####[facility] [address] [place] [address] Cholesterol in VLDL [Mass/Vol] 14 mg/dL Normal 7-40 [facility] Comment on above: Performed By: #### 2 384043, 3110226, 4357658, 16697919, 00099670, 9661163, 91175188, 2808291, 35862102, 073784400, 6284736, 8394410 ####[facility] [address] [place] [address] Triglyceride [Mass/Vol] 72 mg/dL Normal <=149 [facility] Comment on above: Performed By: #### 2 148555, 5251444, 7461683, 78506017, 81549311, 6245754, 92652137, 7124749, 43637917, 666017559, 2470778, 8497341 ####[facility] [address] [place] [address] Monitor Recordon 11-29-2022 Monitor Record [id number]#1. 00CD:127 Normal [facility] Monitor Record [id number]#1. 00CD:127 Normal [facility] Monitor Record [id number]#1. 00CD:127 Normal [facility] Monitor Record [id number]#1. 00CD:127 Normal [facility] Monitor Record [id number]#1. 00CD:127 Normal [facility] Monitor Record [id number]#1. 00CD:127 Normal [facility] Monitor Record [id number]#1. 00CD:127 Normal [facility] Monitor Record [id number]#1. 00CD:127 Normal [facility] Progress Note-Physicianon Progress Note-Physician Normal [facility] Comment on above: Result Comment: Elec tronically Signed By: New Johnson DO.br\Date and Time Signed: 11/29/22 10:54 EDT RAD - Preliminary Cat Scan R eporton 11-29-2022 RAD - Preliminary Cat Scan Report [id number]#1 .00CD:127 Normal [facility] Sed Rate Automatedon 023 Sed Rate Automated 17 mm/hr Normal 0-19 [facility] Comment on above: Performed By: #### 2 107385, 5130616, 3046324, 29163895, 60627670, 0512119, 57975478, 9628619, 72078917, 725158939, 0791323, 8657204 ####[facility] [address] [place] [address] TSH With T4fr Reflexon 11-29 TSH Qn 3.43 m[IU]/L Normal 0.34-5.60 [facility] Comment on above: Performed By: #### 2 374229, 7375382, 5315188, 03350700, 68207013, 9269644, 56436533, 8726176, 91351181, 483210503, 7292528, 7979564 ####[facility] [address] [place] [address] Troponin 6 Hr.on 11-29-2022 Troponin I.cardiac [Mass/Vol] 32.60 pg/mL Normal 15.90-38.40 [facility] Comment on above: Result Comment: The 95% CI (Confidence Interval) PPV (Positive Predictive Value) for myocardial infarction in females is 38 pg/mL, in males 51 pg/mL. The results should be used in conjunction with clinical conditions of myocardial infarction.(Access High Sensitivity Troponin I Instructions For Use, [employer] December 2017) Performed By: #### 1 [id number] ####[facility] [address] [place] [address] Troponin 9 Hr.on 11-29-2022 Troponin I.cardiac [Mass/Vol] 37.00 pg/mL Normal 15.90-38.40 [facility] Comment on above: Result Comment: The 95% CI (Confidence Interval) PPV (Positive Predictive Value) for myocardial infarction in females is 38 pg/mL, in males 51 pg/mL. The results should be used in conjunction with clinical conditions of myocardial infarction.(Access High Sensitivity Troponin I Instructions For Use, [employer] December 2017) Performed By: #### 1 [id number] ####[facility] [address] [place] [address] Vitamin D 25 Hydroxyon 11-29 25-hydroxyvitamin D3 [Mass/Vol] ng/mL Low 30.0-100.0 [facility] Comment on above: Result Comment: Vit palacios D deficiency has been defined as a level of serum 25-OH vitamin D less than 20 ng/mL (1,2) by the [place] [employer] and an Endocrine Society practice guideline. The Endocrine Society further defined vitamin D insufficiency as a level between 21 and 29 ng/mL (2). 1. IOM ([place] of [employer]). 2010. Dietary reference intakes for calcium and D. [place]: The National Academies Press. 2. Patricia MF, Parisa AGUIRRE, Reji PETERS, et al. Evaluation, treatment, and prevention of vitamin D deficiency: an Endocrine Society clinical practice guideline. JCEM. 2010; 96 (7):1911-30. Performed By: #### 2 379934, 1988155, 5552785, 38796711, 71912067, 3911208, 13884026, 2677676, 90990930, 800924773, 2153176, 9951873 ####[facility] [address] [place] [address] eGFRon 11-29-2022 GFR/1.73 sq M.predicted among non-blacks MDRD (S/P/Bld) [Vol rate/Area] 69 mL/min/1.73 m2 Normal >=59 [facility] Comment on above: Order Comment: Order added by Discern Expert. Result Comment: Interventional Nurse earnest kidney disease could be indicated at eGFR's of less than 60 mL/min/1.73m2. Kidney failure is indicated at less than 15 mL/min/1.73m2. Performed By: #### 2 362432, 9334230, 4532290, 72440030, 35715056, 1811964, 24882088, 3638851, 18637087, 845761015, 0195447, 0410701 ####[facility] [address] [place] [address] Auto Diffon 11-28-2022 Basophils/100 WBC (Bld) 0.7 % Normal 0.0-2.0 [facility] Comment on above: Order Comment: Order Added by Discern Expert. Performed By: #### 1 9500011, 0164835, 7541653, 9913388, 28399921 ####[address] [place] [address] Basophils/Leukocytes Auto (Bld) [Pure # fraction] 0.0 E9/L Normal 0.0-0.2 [facility] Comment on above: Order Comment: Order Added by Discern Expert. Performed By: #### 1 5976013, 7827623, 5677363, 7872664, 32109134 ####[address] [place] [address] Eosinophils/100 WBC (Bld) 7.4 % Normal 0.0-8.0 [facility] Comment on above: Order Comment: Order Added by Bethany Expert. Performed By: #### 1 1447851, 5712492, 0848130, 3780563, 61156182 ####[address] [address] Eosinophils/Leukocytes Auto (Bld) [Pure # fraction] 0.5 E9/L Normal 0.0-0.5 [facility] Comment on above: Order Comment: Order Added by Bethany Expert. Performed By: #### 1 0944365, 9820252, 5061305, 0921528, 91879456 ####[address] [address] Lymphocytes/100 WBC (Bld) 9.3 % Low 14.0-50.0 [facility] Comment on above: Order Comment: Order Added by Bethany Expert. Performed By: #### 1 0427894, 0923125, 9068974, 4499121, 05079898 ####[address] [place] [address] Lymphocytes/Leukocytes Auto (Bld) [Pure # fraction] 0.7 E9/L Low 1.0-4.0 [facility] Comment on above: Order Comment: Order Added by Bethany Expert. Performed By: #### 1 7311839, 1020980, 8456106, 0084735, 00666893 ####[facility] [address] [place] [address] Monocytes/100 WBC (Bld) 6.6 % Normal 4.0-14.0 [facility] Comment on above: Order Comment: Order Added by Discern Expert. Performed By: #### 1 3408918, 8382699, 3078392, 6153371, 29937624 ####[facility] [address] [place] [address] Monocytes/Leukocytes Auto (Bld) [Pure # fraction] 0.5 E9/L Normal 0.2-1.0 [facility] Comment on above: Order Comment: Order Added by Discern Expert. Performed By: #### 1 2050069, 3046059, 9387169, 7235674, 15558081 ####[address] [place] [address] Neutrophils/100 WBC (Bld) 76.0 % High 36.0-75.0 [facility] Comment on above: Order Comment: Order Added by Bethany Expert. Performed By: #### 1 7974017, 6237805, 6382042, 7310092, 92939097 ####[address] [place] [address] Neutrophils/Leukocytes Auto (Bld) [Pure # fraction] 5.4 E9/L Normal 2.0-7.5 [facility] Comment on above: Order Comment: Order Added by Discern Expert. Performed By: #### 1 0333496, 1386962, 8027094, 7970275, 65034903 ####[facility] [address] [place] [address] BMPon 11-28-2022 Creatinine [Mass/Vol] 1.0 mg/dL Normal 0.5-1.3 [facility] Comment on above: Performed By: #### 1 7028913, 3999219, 4245404, 9406775, 09919836 ####[address] [place] [address] Urea nitrogen [Mass/Vol] 16 mg/dL Normal 5-21 [facility] Comment on above: Performed By: #### 1 9399955, 6424976, 1208451, 9014260, 82882135 ####[facility] [address] [place] [address] Urea nitrogen/Creatinine [Mass ratio] 16 No Units Normal 10-20 [facility] Comment on above: Performed By: #### 1 9321153, 9208372, 1063664, 8022837, 29827449 ####[facility] [address] [place] [address] Anion gap [Moles/Vol] 10 mmol/L Normal 6-16 [facility] Comment on above: Performed By: #### 1 8884737, 3546335, 1024548, 4319245, 12879585 ####[facility] [address] [place] [address] Calcium [Mass/Vol] 8.8 mg/dL Low 8.9-11.1 [facility] Comment on above: Performed By: #### 1 3481677, 1782126, 3041099, 4630034, 64751074 ####[facility] [address] [place] [address] Chloride [Moles/Vol] 105 mmol/L Normal 101-111 [facility] Comment on above: Performed By: #### 1 4833334, 9387115, 5251360, 8393518, 41100664 ####[facility] [address] [place] [address] CO2 [Moles/Vol] 28 mmol/L Normal 21-31 [facility] Comment on above: Performed By: #### 1 8156436, 6563146, 0896437, 9704605, 22667460 ####[facility] [address] [place] [address] Glucose [Mass/Vol] 114 mg/dL Normal 55-199 [facility] Comment on above: Result Comment: If t his glucose result represents a fasting glucose, interpretation should refer to the following reference range: 55-99 mg/dL Performed By: #### 1 4198754, 9183336, 1501827, 3428073, 44735967 ####[facility] [address] [place] [address] Potassium [Moles/Vol] 4.1 mmol/L Normal 3.5-5.3 [facility] Comment on above: Performed By: #### 1 2618351, 3288272, 0572852, 5525342, 78430612 ####[facility] [address] [place] [address] Sodium [Moles/Vol] 139 mmol/L Normal 135-145 [facility] Comment on above: Performed By: #### 1 9097018, 3431761, 2283913, 2215855, 21289082 ####[facility] [address] [place] [address] Blood Gas Art, with Lytes, G christal, [place] 11-28-2022 a/A Ratio Art 53.40 % Normal >=0.80 [facility] Comment on above: Performed By: #### 4 [id number] ####[facility] [address] [place] [address] AaDO2 Art 64.9 mmHg High 5.0-15.0 [facility] Comment on above: Performed By: #### 4 32459556 ####[facility] [address] [place] [address] Allens Test Positive Normal [facility] Comment on above: Performed By: #### 4 45680831 ####[facility] [address] [place] [address] Base Excess Arterial 2.9 mmol/L Normal >=2.8 [facility] Comment on above: Performed By: #### 4 02008880 ####[facility] [address] [place] [address] cCa2+ Art 4.88 mg/dL Normal 4.40-5.30 [facility] Comment on above: Performed By: #### 4 09458802 ####[facility] [address] [place] [address] cCl- Art 103.0 mmol/L Normal 101.0-111.0 [facility] Comment on above: Performed By: #### 4 83508280 ####[facility] [address] [place] [address] cGlu Art 98 mg/dL Normal 55-99 [facility] Comment on above: Performed By: #### 4 99524083 ####[address] [place] [address] cK+ Art 3.6 mmol/L Normal 3.5-5.3 [facility] Comment on above: Performed By: #### 4 69225455 ####[address] [address] cLac Art .6 mmol/L Normal .5-2.2 [facility] Comment on above: Performed By: #### 4 74228706 ####[address] [facility] [place] [address] tanbark laborer+ Art 139.0 mmol/L Normal 135.0-145.0 [facility] Comment on above: Performed By: #### 4 65769205 ####[address] [place] [address] Drawn by nmb Invalid Interpretation Code [facility] Comment on above: Performed By: #### 4 [id number] ####[address] [facility] [place] [address] FCOHb Art 1.5 % Normal 1.5-4.9 [facility] Comment on above: Result Comment: Refe rence rangeNonsmoker <1.5%Smoker <5.0%Heavy Smoker <9.0% Performed By: #### 4 10116758 ####[facility] [address] [facility] [place] [address] FIO2 BG 28 Invalid Interpretation Code [facility] Comment on above: Performed By: #### 4 [id number] ####[address] [address] Flow 2 Invalid Interpretation Code [facility] Comment on above: Performed By: #### 4 42289336 ####[address] [address] FMetHb Art 0.3 % Normal 0.0-1.9 [facility] Comment on above: Performed By: #### 4 01511784 ####[address] [address] FO2Hb Art 93.7 % Normal 93.0-100.0 [facility] Comment on above: Performed By: #### 4 34211505 ####[address] [address] HCO3 (Bld) [Moles/Vol] 26.9 mmol/L High 22.0-26.0 [facility] Comment on above: Performed By: #### 4 81032231 ####[address] [address] Hemoglobin (Bld) [Mass/Vol] 11.9 g/dL Low 12.0-17.0 [facility] Comment on above: Performed By: #### 4 68970057 ####[address] [address] Oxygen saturation in Blood 95.4 % Normal 95.0-100.0 [facility] Comment on above: Performed By: #### 4 43004470 ####[address] [address] P CO2 Arterial 47.6 mmHg High 35.0-45.0 [facility] Comment on above: Performed By: #### 4 50377705 ####[address] [address] P O2 Arterial 74.3 mmHg Low 80.0-100.0 [facility] Comment on above: Performed By: #### 4 98985717 ####[address] [address] pH Arterial 7.387 Normal 7.350-7.450 [facility] Comment on above: Performed By: #### 4 99047125 ####[facility] [address] [place] Sample Site R Radial Normal [facility] Comment on above: Performed By: #### 4 35962055 ####[facility] [address] [place], [place] [address] Sample Type Arterial Draw Normal [facility] Comment on above: Performed By: #### 4 93595191 ####[facility] [address] [place] [address] CBC w/ Auto Diffon 3 Erythrocyte distribution width (RBC) [Ratio] 14.8 % High 10.9-14.2 [facility] Comment on above: Performed By: #### 1 3541626, 0099771, 0617813, 1154724, 66409822 ####[facility] [address] [place] Hematocrit (Bld) [Volume fraction] 37.3 % Low 37.7-49.0 [facility] Comment on above: Performed By: #### 1 8174445, 2508322, 7820787, 8838502, 36493049 ####[address] [place] [address] Hemoglobin (Bld) [Mass/Vol] 12.3 g/dL Low 13.5-17.5 [facility] Comment on above: Performed By: #### 1 4237980, 0135016, 0585710, 3379742, 83504925 ####[facility] [address] [place] [address] MCH (RBC) [Entitic mass] 28.3 pg Normal 27.0-34.0 [facility] Comment on above: Performed By: #### 1 7847344, 3575552, 5312782, 4309709, 38561338 ####[facility] [address] [place] [address] MCHC (RBC) [Mass/Vol] 33.0 g/dL Normal 31.4-36.0 [facility] Comment on above: Performed By: #### 1 1232184, 6918127, 6339855, 2942208, 78637987 ####[facility] [address] [place] [address] MCV (RBC) [Entitic vol] 85.9 fL Normal 80.0-100.0 [facility] Comment on above: Performed By: #### 1 1392103, 0493102, 5872222, 0821502, 25900099 ####[address] [place] [address] Platelet mean volume (Bld) [Entitic vol] 10.4 fL Normal 6.4-10.8 [facility] Comment on above: Performed By: #### 1 3751285, 4913681, 8580945, 3276669, 00434120 ####[place] Platelets (Bld) [#/Vol] 189.0 E9/L Normal 150.0-500.0 [facility] Comment on above: Performed By: #### 1 3281298, 9117194, 1583713, 2923170, 33734697 ####[place] RBC (Bld) [#/Vol] 4.3 E12/L Normal 4.3-5.9 [facility] Comment on above: Performed By: #### 1 0404979, 3163954, 5425615, 9786936, 14739316 ####[address] [place] [address] WBC corrected for nucl RBC Auto (Bld) [#/Vol] 7.1 E9/L Normal 4.0-11.0 [facility] Comment on above: Performed By: #### 1 8285124, 8081479, 5305499, 0624412, 29463234 ####[place] CHEMISTRYOrdered By: SYSTEM SYSTEM on 11-28-2022 Troponin I.cardiac [Mass/Vol] 32.60 pg/mL Normal 15.90 - 38.40 pg/mL FT Remisol Troponin I.cardiac [Mass/Vol] 26.90 pg/mL Normal 15.90 - 38.40 pg/mL FT Remisol Consent for Treatmenton Consent for Treatment [id number] 0CD:[id number] Normal [facility] ED Note-Physicianon 11-29-19 ED Note-Physician Normal [facility] Comment on above: Result Comment: [...] - 2.2 mmol/L FT Resp Auto SS tanbark laborer+ Art 139.0 mmol/L Normal 135.0 - 145.0 mmol/L FT Resp Auto SS Drawn by nmb Invalid Interpretation Code FT Resp Auto SS FCOHb Art 1.5 % Normal 1.5 - 4.9 % FT Resp Auto SS FIO2 BG 28 Invalid Interpretation Code FT Resp Auto SS Flow 2 Invalid Interpretation Code FT Resp Auto SS FMetHb Art 0.3 % Normal 0.0 - 1.9 % [facility] Resp Auto SS FO2Hb Art 93.7 % Normal 93.0 - 100.0 % [facility] Resp Auto SS HCO3 (Bld) [Moles/Vol] 26.9 mmol/L High 22.0 - 26.0 mmol/L [facility] Resp Auto SS Hemoglobin (Bld) [Mass/Vol] 11.9 g/dL Low 12.0 - 17.0 gm/dL [facility] Resp Auto SS P CO2 Arterial 47.6 mm[Hg] High 35.0 - 45.0 mmHg FT Resp Auto SS P O2 Arterial 74.3 mm[Hg] Low 80.0 - 100.0 mmHg [facility] Resp Auto SS pH Arterial 7.387 Normal 7.350 - 7.450 [facility] Resp Auto SS Sample Site R Radial (11/28/22 6:55 PM) Normal [facility] Resp Auto SS Sample Type Arterial Draw (11/28/22 6:55 PM) Normal [facility] Resp Auto SS HEMATOLOGYOrdered By: SYSTEM SYSTEM on 11-28-2022 Basophils/100 WBC (Bld) 0.7 % Normal 0.0 - 2.0 % [facility] HemeAutoSS Basophils/Leukocytes Auto (Bld) [Pure # fraction] [...] [facility] HemeAutoSS Pre-Arrival Noteon Pre-Arrival Note Normal [facility] Troponin 0 Hr.on 11-28-2022 Troponin I.cardiac [Mass/Vol] 21.80 pg/mL Normal 15.90-38.40 [facility] Comment on above: Result Comment: The 95% CI (Confidence Interval) PPV (Positive Predictive Value) for myocardial infarction in females is 38 pg/mL, in males 51 pg/mL. The results should be used in conjunction with clinical conditions of myocardial infarction.(Access High Sensitivity Troponin I Instructions For Use, Claudia Luis, December 2017) Performed By: #### 1 8886225, 6733772, 0749801, 8914877, 54307651 ####[facility] [address] [place] [address] Troponin 3 Hr.on 11-28-2022 Troponin I.cardiac [Mass/Vol] 26.90 pg/mL Normal 15.90-38.40 [facility] Comment on above: Result Comment: The 95% CI (Confidence Interval) PPV (Positive Predictive Value) for myocardial infarction in females is 38 pg/mL, in males 51 pg/mL. The results should be used in conjunction with clinical conditions of myocardial infarction.(Access High Sensitivity Troponin I Instructions For Use, Claudia Luis, December 2017) Performed By: #### 1 [id number] ####[facility] [address] [place] [address] UA With Cult Reflexon 2022 Crystals LM Ql (Urine sed) Present Normal [facility] Comment on above: Performed By: #### 1 1032325 ####[place] [address] Epithelial cells.squamous LM.HPF (Urine sed) [#/Area] 0-2 Normal 0-2 [facility] Comment on above: Performed By: #### 1 2206670 ####[facility] [address] [place], [place] [address] [place].plasma/[place].R BC (Bld) [Mass ratio] 0-3 Normal 0-3 [facility] Comment on above: Performed By: #### 1 5643914 ####[facility] [address] [place], [place] [address] Mucus Ql (Urine sed) TRACE Normal [facility] Comment on above: Performed By: #### 1 9860918 ####[facility] [address] [place] [address] WBC LM.HPF (Urine sed) [#/Area] 0-5 Normal 0-5 [facility] Comment on above: Performed By: #### 1 7918656 ####[address] [address] Bilirubin Ql (U) Negative Normal Negative [facility] Comment on above: Performed By: #### 1 6935725 ####[facility] [address] [facility] [place] [address] Clarity (U) CLEAR Normal Clear [facility] Comment on above: Performed By: #### 1 4416925 ####[facility] [address] [facility] [place] [address] Color (U) YELLOW Normal Yellow [facility] Comment on above: Performed By: #### 1 6471870 ####[facility] [address] [facility] [place] [address] Glucose Test strip (U) [Mass/Vol] Negative Normal Negative [facility] Comment on above: Performed By: #### 1 1004973 ####[address] [facility] [place] [address] Hemoglobin Ql (U) Negative Normal Negative [facility] Comment on above: Performed By: #### 1 2056040 ####[facility] [address] [facility] [place] [address] Ketones (U) [Mass/Vol] Negative Normal Negative [facility] Comment on above: Performed By: #### 1 0527935 ####[facility] [address] [facility] [place] [address] Nitrite Ql (U) Negative Normal Negative [facility] Comment on above: Performed By: #### 1 9569612 ####[facility] [address] [facility] [place] [address] pH (U) 6.0 [pH] Invalid Interpretation Code 5.0-9.0 [facility] Comment on above: Performed By: #### 1 8060501 ####[facility] [address] [facility] [place] [address] Protein (U) [Mass/Vol] 2+ Abnormal Negative [facility] Comment on above: Performed By: #### 1 4126535 ####[address] [place] [facility] [place] [address] Specific gravity (U) [Rel density] 1.025 Invalid Interpretation Code 1.005-1.030 [facility] Comment on above: Performed By: #### 1 3950106 ####[facility] [address] [place] [address] Type of Urine collection method Clean Catch Normal [facility] Comment on above: Performed By: #### 1 1852149 ####[facility] [address] [place] [address] Urobilinogen Qn (U) 0.2 {Lei'U}/dL Normal 0.0-1.0 [facility] Comment on above: Performed By: #### 1 8573587 ####[facility] [address] [place] [address] WBC Auto Ql (U) Negative Normal Negative [facility] Comment on above: Performed By: #### 1 3269493 ####[facility] [address] [place] [address] URINALYSISOrdered By: Emily Suero on 11-28-2022 Bilirubin [...] PM) Normal Negative [facility] UA Auto SS [place].plasma/[place].R BC (Bld) [Mass ratio] 0-3 /HPF Normal [...] FT UA Auto SS Urobilinogen Qn (U) 0.7599709 {Lei'U}/dL Normal 0.0 - 1.0 EU/dL FT UA Auto SS WBC Auto Ql (U) Negative (11/28/22 5:55 PM) Normal Negative [facility] UA Auto SS WBC LM.HPF (Urine sed) [#/Area] 0-5 /HPF Normal 0-5/HPF FT UA Auto SS XR Chest Single Viewon 11-28 XR Chest Single View Normal [facility] eGFRon 11-28-2022 GFR/1.73 sq M.predicted among non-blacks MDRD (S/P/Bld) [Vol rate/Area] 77 mL/min/1.73 m2 Normal >=59 [facility] Comment on above: Order Comment: Order added by Discern Expert. Result Comment: Interventional Nurse earnest kidney disease could be indicated at eGFR's of less than 60 mL/min/1.73m2. Kidney failure is indicated at less than 15 mL/min/1.73m2. Performed By: #### 1 8698889, 7242472, 8001407, 1843335, 80880379 ####[facility] [address] [place] [address] CHEMISTRYOrdered By: SYSTEM SYSTEM on 11-26-2022 Albumin [...] Triglyceride [Mass/Vol] 69 mg/dL Normal <=149mg/dL F [facility] Remisol TSH Qn 2.07 m[IU]/L Normal 0.34 - 5.60 mcIU/mL FT [facility] Urea nitrogen [Mass/Vol] 18 mg/dL Normal 5 - 21 mg/dL [facility] Urea nitrogen/Creatinine [Mass ratio] 20 mg/mg Normal 10 - 20 [facility] CMPon 11-26-2022 Albumin [Mass/Vol] 3.7 g/dL Normal 3.3-5.0 [facility] Comment on above: Performed By: #### 2 200446, 7538630, 70273013, 7086396 ####[facility] [address] [place] [address] Albumin/Globulin (S) [Mass conc ratio] 1.2 Normal 1.1-2.2 [facility] Comment on above: Performed By: #### 2 365950, 1584755, 49410607, 6986326 ####[facility] [address] [place] [address] ALP [Catalytic activity/Vol] 38 Int._Unit/L Normal 21-98 [facility] Comment on above: Performed By: #### 2 074765, 1169531, 45634592, 5512714 ####[facility] [address] [place] [address] ALT No additional P-5'-P [Catalytic activity/Vol] 11 Int._Unit/L Normal 6-46 [facility] Comment on above: Performed By: #### 2 682542, 4265397, 85778912, 0265679 ####[facility] [address] [place] [address] Anion gap [Moles/Vol] 14 mmol/L Normal 6-16 [facility] Comment on above: Performed By: #### 2 260055, 2331299, 15929085, 2655224 ####[facility] [address] [place] [address] AST [Catalytic activity/Vol] 15 Int._Unit/L Normal 5-43 [facility] Comment on above: Performed By: #### 2 486322, 6299324, 70667679, 0596393 ####[facility] [address] [place] [address] Bilirubin [Mass/Vol] 1.0 mg/dL Normal 0.0-1.1 [facility] Comment on above: Performed By: #### 2 630320, 1211431, 60498906, 3595745 ####[facility] [address] [place] [address] Calcium [Mass/Vol] 9.2 mg/dL Normal 8.9-11.1 [facility] Comment on above: Performed By: #### 2 190383, 4724404, 63826150, 2313362 ####[facility] [address] [place] [address] Chloride [Moles/Vol] 107 mmol/L Normal 101-111 [facility] Comment on above: Performed By: #### 2 487962, 1244714, 78422350, 1132803 ####[facility] [address] [facility] [place] [address] CO2 [Moles/Vol] 28 mmol/L Normal 21-31 [facility] Comment on above: Performed By: #### 2 503903, 9944003, 44964727, 0411013 ####[facility] [address] [facility] [place] [address] Creatinine [Mass/Vol] 0.9 mg/dL Normal 0.5-1.3 [facility] Comment on above: Performed By: #### 2 065053, 4989860, 56378595, 0650776 ####[facility] [address] [place] [address] Globulin (S) [Mass/Vol] 3.2 g/dL Normal 1.4-4.0 [facility] Comment on above: Performed By: #### 2 395270, 1174798, 41930102, 2496438 ####[facility] [address] [place] [address] Glucose [Mass/Vol] 95 mg/dL Normal 55-199 [facility] Comment on above: Result Comment: If t his glucose result represents a fasting glucose, interpretation should refer to the following reference range: 55-99 mg/dL Performed By: #### 2 619326, 6175843, 83447546, 2620106 ####[facility] [address] [place] [address] Potassium [Moles/Vol] 4.2 mmol/L Normal 3.5-5.3 [facility] Comment on above: Performed By: #### 2 344611, 6115437, 71277796, 3402915 ####[facility] [address] [place] [address] Protein [Mass/Vol] 6.9 g/dL Normal 6.0-7.8 [facility] Comment on above: Performed By: #### 2 974996, 1058658, 43823335, 1218489 ####[facility] [address] [place] [address] Sodium [Moles/Vol] 145 mmol/L Normal 135-145 [facility] Comment on above: Performed By: #### 2 405836, 8384904, 24290480, 2838334 ####[facility] [address] [place] [address] Urea nitrogen [Mass/Vol] 18 mg/dL Normal 5-21 [facility] Comment on above: Performed By: #### 2 239996, 5694319, 21436776, 9588197 ####[facility] [address] [place] [address] Urea nitrogen/Creatinine [Mass ratio] 20 No Units Normal 10-20 [facility] Comment on above: Performed By: #### 2 203086, 2936319, 72274391, 5394415 ####[facility] [address] [place] [address] Consent for Treatmenton 07- Consent for Treatment [id number]#1.0 0CD:127 Normal [facility] Lipid Panelon 11-26-2022 Cholesterol [Mass/Vol] 112 mg/dL Low 120-200 [facility] Comment on above: Performed By: #### 2 121301, 2308754, 73476303, 2076654 ####[facility] [address] [place] [address] Cholesterol in HDL [Mass/Vol] 49 mg/dL Invalid Interpretation Code [facility] Comment on above: Result Comment: HDL > or equal to 60 mg/dL: Low cardiovascular riskHDL < 40 mg/dL : High cardiovascular risk Performed By: #### 2 173272, 4465936, 35451781, 4016220 ####[facility] [address] [place] [address] Cholesterol in LDL [Mass/Vol] 42 mg/dL Normal <=129 [facility] Comment on above: Performed By: #### 2 328303, 2694971, 41919476, 4171024 ####[facility] [address] [place] [address] Cholesterol in VLDL [Mass/Vol] 14 mg/dL Normal 7-40 [facility] Comment on above: Performed By: #### 2 904514, 8241752, 31954298, 5507755 ####[facility] [address] [place] [address] Triglyceride [Mass/Vol] 69 mg/dL Normal <=149 [facility] Comment on above: Performed By: #### 2 729874, 9048733, 59654738, 2098729 ####[facility] [address] [place] [address] Physician Orderon 11-26-2022 Physician Order [id number]#1. 00CD:127 Normal [facility] TSHon 11-26-2022 TSH Qn 2.07 m[IU]/L Normal 0.34-5.60 [facility] Comment on above: Performed By: #### 2 769367, 6363177, 39720030, 9877677 ####[facility] [address] [place] [address] eGFRon 11-26-2022 GFR/1.73 sq M.predicted among non-blacks MDRD (S/P/Bld) [Vol rate/Area] 87 mL/min/1.73 m2 Normal >=59 [facility] Comment on above: Order Comment: Order added by Discern Expert. Result Comment: Interventional Nurse earnest kidney disease could be indicated at eGFR's of less than 60 mL/min/1.73m2. Kidney failure is indicated at less than 15 mL/min/1.73m2. Performed By: #### 2 917382, 5699703, 64938785, 0244974 ####[facility] [address] [place] [address] Discharge Instructionson Discharge Instructions [id number]#1.0 0CD:127 Normal [facility] Transfer Documentson 023 Transfer Documents [id number]#1.0 0CD:127 Normal [facility] Capillary Glucose POCon Glucose [Mass/Vol] 166 mg/dL High 55-99 [facility] Comment on above: Result Comment: Gareth guerrero RN/ Performed By: #### 2 [id number] ####[facility] [address] [place] [address] Glucose [Mass/Vol] 119 mg/dL High 55-99 [facility] Comment on above: Result Comment: Repe at Test Performed By: #### 2 08304587 ####[facility] [address] [place] [address] Discharge Note-Nursingon Discharge Note-Nursing Normal [facility] [id number] 09-28-2022 HbA1c (Bld) [Mass fraction] 6.4 % High <=5.9 [facility] Comment on above: Order Comment: IF UN ABLE TO ADD TO ED LABS Performed By: #### 2 071884, [id number] ####[facility] [address] [place] [address] Inpatient Clinical Summaryon 09-28-2022 Inpatient Clinical Summary Normal [facility] Inpatient Patient Summaryon 09-28-2022 Inpatient Patient Summary Normal [facility] Inpatient Patient Summary Normal [facility] Interdisciplinary Note - Santosh e Manageron 09-28-2022 Interdisciplinary Note - Computer Clerk Normal [facility] Comment on above: Result Comment: Elec tronically Signed By: Jose HAYDEN, Norma\.br\Date and Time Signed: 09/28/22 15:54 EDT Monitor Recordon 09-28-2022 Monitor Record [id number]#1. 00CD:127 Normal [facility] Capillary Glucose POCon Glucose [Mass/Vol] 192 mg/dL High 55-99 [facility] Comment on above: Result Comment: Gareth GARDINER Performed By: #### 2 [id number] ####[facility] [address] [place] [address] Glucose [Mass/Vol] 130 mg/dL High 55-99 [facility] Comment on above: Result Comment: No C overage Given Performed By: #### 2 [id number] ####[facility] [address] [place] [address] Glucose [Mass/Vol] 202 mg/dL High 55-99 [facility] Comment on above: Result Comment: Gareth GARDINER Performed By: #### 2 [id number] ####[facility] [address] [place] [address] Glucose [Mass/Vol] 89 mg/dL Normal 55-99 [facility] Comment on above: Result Comment: Gareth GARDINER Performed By: #### 2 [id number] ####[facility] [address] [place] [address] Insurance Correspondence Off iceon 09-27-2022 Insurance Correspondence Office [id number]#1. 00CD:127 Normal [facility] Interdisciplinary Note - Santosh e Manageron 09-27-2022 Interdisciplinary Note - Computer Clerk Normal [facility] Comment on above: Result Comment: [...] needs anticipated upon d/c home. AM-PAC Normal [facility] Lyteson 09-27-2022 Anion gap [Moles/Vol] 9 mmol/L Normal 6-16 [facility] Comment on above: Performed By: #### 2 539711, [id number] ####[facility] [address] [place] [address] Chloride [Moles/Vol] 105 mmol/L Normal 101-111 [facility] Comment on above: Performed By: #### 2 541636, [id number] ####[facility] [address] [place] [address] CO2 [Moles/Vol] 26 mmol/L Normal 21-31 [facility] Comment on above: Performed By: #### 2 825051, [id number] ####[facility] [address] [place] [address] Potassium [Moles/Vol] 4.2 mmol/L Normal 3.5-5.3 [facility] Comment on above: Performed By: #### 2 775123, [id number] ####[facility] [address] [place] [address] Sodium [Moles/Vol] 136 mmol/L Normal 135-145 [facility] Comment on above: Performed By: #### 2 702953, [id number] ####[facility] [address] [place] [address] Monitor Recordon 09-27-2022 Monitor Record [id number]#1. 00CD:127 Normal [facility] Monitor Record [id number]#1. 00CD:127 Normal [facility] Progress Note-Nurseon 2022 Progress Note-Nurse Normal [facility] Progress Note-Physicianon Progress Note-Physician Normal [facility] Comment on above: Result Comment: Elec tronically Signed By: Adeline COLEMAN\.br\Date and Time Signed: 09/27/22 15:34 EDT\.br\Electronically Co-Signed By: Adeline COLEMAN\.br\Date and Time Co-Signed: 09/27/22 15:37 EDT\.br\Electronically Co-Signed By: Rei POTTS, Ganesh Pressley\.br\Date and Time Co-Signed: 09/27/22 18:58 EDT Auto Diffon 09-26-2022 Basophils/100 WBC (Bld) 0.5 % Normal 0.0-2.0 [facility] Comment on above: Order Comment: Order Added by Discern Expert. Performed By: #### 1 4013965, 6518171, 7037218, 8326478 ####[facility] [address] [place] [address] Basophils/Leukocytes Auto (Bld) [Pure # fraction] 0.0 E9/L Normal 0.0-0.2 [facility] Comment on above: Order Comment: Order Added by Discern Expert. Performed By: #### 1 8423057, 3312563, 4112091, 5855384 ####[facility] [address] [place] [address] Eosinophils/100 WBC (Bld) 3.3 % Normal 0.0-8.0 [facility] Comment on above: Order Comment: Order Added by Discern Expert. Performed By: #### 1 0854536, 8382165, 0488688, 3193586 ####[address] [place] [address] Eosinophils/Leukocytes Auto (Bld) [Pure # fraction] 0.3 E9/L Normal 0.0-0.5 [facility] Comment on above: Order Comment: Order Added by Bethany Expert. Performed By: #### 1 2931094, 1341704, 1306851, 7659593 ####[address] [place] [address] Lymphocytes/100 WBC (Bld) 9.5 % Low 14.0-50.0 [facility] Comment on above: Order Comment: Order Added by Bethany Expert. Performed By: #### 1 2007553, 7233756, 4483725, 0904020 ####[address] [address] Lymphocytes/Leukocytes Auto (Bld) [Pure # fraction] 0.8 E9/L Low 1.0-4.0 [facility] Comment on above: Order Comment: Order Added by Bethany Expert. Performed By: #### 1 5256873, 0825430, 6765470, 1837008 ####[address] [address] Monocytes/100 WBC (Bld) 7.2 % Normal 4.0-14.0 [facility] Comment on above: Order Comment: Order Added by Bethany Expert. Performed By: #### 1 6562076, 1087200, 5238679, 6909457 ####[address] [place] [address] Monocytes/Leukocytes Auto (Bld) [Pure # fraction] 0.6 E9/L Normal 0.2-1.0 [facility] Comment on above: Order Comment: Order Added by Bethany Expert. Performed By: #### 1 4056695, 2878996, 2074249, 4092514 ####[address] [address] Neutrophils/100 WBC (Bld) 79.5 % High 36.0-75.0 [facility] Comment on above: Order Comment: Order Added by Discern Expert. Performed By: #### 1 8439301, 0990494, 7527985, 0698986 ####[facility] [address] [place] [address] Neutrophils/Leukocytes Auto (Bld) [Pure # fraction] 6.7 E9/L Normal 2.0-7.5 [facility] Comment on above: Order Comment: Order Added by Discern Expert. Performed By: #### 1 3662614, 2193057, 6751323, 9361291 ####[facility] [address] [place] [address] BMPon 09-26-2022 Creatinine [Mass/Vol] 1.0 mg/dL Normal 0.5-1.3 [facility] Comment on above: Performed By: #### 1 3635349, 2217007, 2257228, 1756838 ####[facility] [address] [place] [address] Urea nitrogen [Mass/Vol] 25 mg/dL High 5-21 [facility] Comment on above: Performed By: #### 1 0722805, 5832011, 3786612, 4968560 ####[facility] [address] [place] [address] Urea nitrogen/Creatinine [Mass ratio] 25 No Units High 10-20 [facility] Comment on above: Performed By: #### 1 0755050, 1756178, 1817792, 7505752 ####[facility] [address] [place] [address] Anion gap [Moles/Vol] 10 mmol/L Normal 6-16 [facility] Comment on above: Performed By: #### 1 3344987, 8473525, 9776561, 8373102 ####[facility] [address] [place] [address] Calcium [Mass/Vol] 8.9 mg/dL Normal 8.9-11.1 [facility] Comment on above: Performed By: #### 1 3048111, 7259275, 5496012, 9494532 ####[facility] [address] [place] [address] Chloride [Moles/Vol] 101 mmol/L Normal 101-111 [facility] Comment on above: Performed By: #### 1 1428531, 8365409, 7375182, 2721862 ####[facility] [address] [place] [address] CO2 [Moles/Vol] 26 mmol/L Normal 21-31 [facility] Comment on above: Performed By: #### 1 8889032, 8841362, 9884380, 8676396 ####[facility] [address] [place] [address] Glucose [Mass/Vol] 112 mg/dL Normal 55-199 [facility] Comment on above: Result Comment: If t his glucose result represents a fasting glucose, interpretation should refer to the following reference range: 55-99 mg/dL Performed By: #### 1 2438200, 8281667, 7310569, 2222659 ####[facility] [address] [place] [address] Potassium [Moles/Vol] 4.1 mmol/L Normal 3.5-5.3 [facility] Comment on above: Performed By: #### 1 2863973, 9275291, 6106142, 2963654 ####[facility] [address] [place] [address] Sodium [Moles/Vol] 133 mmol/L Low 135-145 [facility] Comment on above: Performed By: #### 1 0464793, 7695589, 7749486, 5711297 ####[facility] [address] [place] [address] CBC w/ Auto Diffon 3 Erythrocyte distribution width (RBC) [Ratio] 14.6 % High 10.9-14.2 [facility] Comment on above: Performed By: #### 1 9934966, 5483536, 3737927, 3307748 ####[facility] [address] [place] [address] Hematocrit (Bld) [Volume fraction] 37.6 % Low 37.7-49.0 [facility] Comment on above: Performed By: #### 1 3474372, 3139609, 5838037, 2257101 ####[address] [address] Hemoglobin (Bld) [Mass/Vol] 12.5 g/dL Low 13.5-17.5 [facility] Comment on above: Performed By: #### 1 3910154, 4586230, 0178313, 8403108 ####[place] [address] MCH (RBC) [Entitic mass] 28.5 pg Normal 27.0-34.0 [facility] Comment on above: Performed By: #### 1 2371214, 7045723, 0044780, 1629913 ####[place] [address] MCHC (RBC) [Mass/Vol] 33.2 g/dL Normal 31.4-36.0 [facility] Comment on above: Performed By: #### 1 7188760, 1521579, 1119414, 5417650 ####[address] [address] MCV (RBC) [Entitic vol] 85.8 fL Normal 80.0-100.0 [facility] Comment on above: Performed By: #### 1 8926076, 1958740, 8566391, 6716410 ####[address] [address] Platelet mean volume (Bld) [Entitic vol] 10.3 fL Normal 6.4-10.8 [facility] Comment on above: Performed By: #### 1 0314920, 7673027, 9466043, 2530771 ####[address] [address] Platelets (Bld) [#/Vol] 164.0 E9/L Normal 150.0-500.0 [facility] Comment on above: Performed By: #### 1 8621174, 0859324, 7317807, 1684096 ####[facility] [address] [place] [address] RBC (Bld) [#/Vol] 4.4 E12/L Normal 4.3-5.9 [facility] Comment on above: Performed By: #### 1 6811687, 7865289, 2086951, 9397415 ####[facility] [address] [place] [address] WBC corrected for nucl RBC Auto (Bld) [#/Vol] 8.4 E9/L Normal 4.0-11.0 [facility] Comment on above: Performed By: #### 1 4903300, 1869902, 4152920, 2718978 ####[facility] [address] [place] [address] Capillary Glucose POCon Glucose [Mass/Vol] 161 mg/dL High 55-99 [facility] Comment on above: Result Comment: Gareth guerrero RN/ Performed By: #### 2 75295577 ####[facility] [address] [place] [address] Consent for Treatmenton Consent for Treatment [id number]#1.0 0CD:127 Normal [facility] ED Clinical Summaryon 2022 ED Clinical Summary Normal [facility] ED Note-Physicianon 09-27-19 ED Note-Physician Normal [facility] Comment on above: Result Comment: Elec tronically Signed By: Shane Pan DO\.br\Date and Time Signed: 09/26/22 16:06 EDT ED Patient Education Noteon 09-26-2022 ED Patient Education Note Normal [facility] ED Patient Summaryon 023 ED Patient Summary Normal [facility] EMS Documentationon 09-27-19 EMS Documentation Normal [facility] EMS Documentation Normal [facility] Pre-Arrival Noteon 3 Pre-Arrival Note Normal [facility] UA With Cult Reflexon 2022 Bilirubin Ql (U) Negative Normal Negative [facility] Comment on above: Order Comment: can s traight cath if needed. Performed By: #### 1 0130685 ####[facility] [address] [place] [address] Clarity (U) CLEAR Normal Clear [facility] Comment on above: Order Comment: can s traight cath if needed. Performed By: #### 1 6222848 ####[facility] [address] [place] [address] Color (U) YELLOW Normal Yellow [facility] Comment on above: Order Comment: can s traight cath if needed. Performed By: #### 1 4958930 ####[facility] [address] [place] [address] Epithelial cells.squamous LM.HPF (Urine sed) [#/Area] 0-2 Normal 0-2 [facility] Comment on above: Order Comment: can s traight cath if needed. Performed By: #### 1 3088509 ####[facility] [address] [place] [address] Glucose Test strip (U) [Mass/Vol] Negative Normal Negative [facility] Comment on above: Order Comment: can s traight cath if needed. Performed By: #### 1 4415319 ####[facility] [address] [place] [address] Hemoglobin Ql (U) Negative Normal Negative [facility] Comment on above: Order Comment: can s traight cath if needed. Performed By: #### 1 8976103 ####[facility] [address] [place] [address] Ketones (U) [Mass/Vol] Negative Normal Negative [facility] Comment on above: Order Comment: can s traight cath if needed. Performed By: #### 1 6520816 ####[facility] [address] [place] [address] [place].plasma/[place].R BC (Bld) [Mass ratio] 0-3 Normal 0-3 [facility] Comment on above: Order Comment: can s traight cath if needed. Performed By: #### 1 9846917 ####[facility] [address] [place] [address] Nitrite Ql (U) Negative Normal Negative [facility] Comment on above: Order Comment: can s traight cath if needed. Performed By: #### 1 6508601 ####[address] [address] pH (U) 5.5 [pH] Invalid Interpretation Code 5.0-9.0 [facility] Comment on above: Order Comment: can s traight cath if needed. Performed By: #### 1 1246409 ####[address] [address] Protein (U) [Mass/Vol] Negative Normal Negative [facility] Comment on above: Order Comment: can s traight cath if needed. Performed By: #### 1 2244483 ####[address] [address] Specific gravity (U) [Rel density] 1.025 Invalid Interpretation Code 1.005-1.030 [facility] Comment on above: Order Comment: can s traight cath if needed. Performed By: #### 1 3708190 ####[address] [address] Type of Urine collection method Clean Catch Normal [facility] Comment on above: Order Comment: can s traight cath if needed. Performed By: #### 1 7044463 ####[facility] [address] [place] [address] Urobilinogen Qn (U) 1.0 {Lei'U}/dL Normal 0.0-1.0 [facility] Comment on above: Order Comment: can s traight cath if needed. Performed By: #### 1 5441129 ####[address] [place] [place] [address] WBC Auto Ql (U) Negative Normal Negative [facility] Comment on above: Order Comment: can s traight cath if needed. Performed By: #### 1 0656481 ####[facility] [address] [place] [address] WBC LM.HPF (Urine sed) [#/Area] 0-5 Normal 0-5 [facility] Comment on above: Order Comment: can s traight cath if needed. Performed By: #### 1 6208736 ####[facility] [address] [place] [address] XR Chest Single Viewon 09-26 XR Chest Single View Normal [facility] eGFRon 09-26-2022 GFR/1.73 sq M.predicted among non-blacks MDRD (S/P/Bld) [Vol rate/Area] 77 mL/min/1.73 m2 Normal >=59 [facility] Comment on above: Order Comment: Order added by Discern Expert. Result Comment: Interventional Nurse earnest kidney disease could be indicated at eGFR's of less than 60 mL/min/1.73m2. Kidney failure is indicated at less than 15 mL/min/1.73m2. Performed By: #### 1 1380661, 6028092, 0947958, 6268364 ####[facility] [address] [place] [address] Q - CULTURE,URINE,ROUTINEon 06-23-2021 CULTURE, URINE, ROUTINE SEE NOTE Normal N or[employer]n [employer] Comment on above: Order Comment: [facility] performed at: QPT, [employer] [facility], [address] [place] [address], [address] [place] [address], [id number], Kennel Helper: Archie Sinha MD [facility] Collection Date/Time: [facility] Results Received Date/Time: [facility] Reported Date/Time: Result Comment: CULT URE, URINE, ROUTINE Micro Number: [id number] Test Status: Final Specimen Source: Urine Specimen Quality: Adequate Result: Mixed genital alvin isolated. These superficial bacteria are not indicative of a urinary tract infection. No further organism identification is warranted on this specimen. If clinically indicated, recollect clean-catch, mid-stream urine and transfer immediately to Urine Culture Transport Tube. Performed By: #### 6 304R #### [facility] Default [address] [place] [address] Q - CULTURE,URINE,ROUTINEon 05-05-2021 CULTURE, URINE, ROUTINE SEE NOTE Normal N orthern [employer] Comment on above: Order Comment: [facility] performed at: [facility], [facility], [address] [facility], [address] [place] [address], [id number], Kennel Helper: Archie Sinha MD [facility] Date/Time: [id number] [facility] Results Received Date/Time: [id number] [facility] Reported Date/Time: [id number] Result Comment: CULT URE, URINE, ROUTINE Micro Number: [id number] Test Status: Final Specimen Source: Urine Specimen Quality: Adequate Result: Growth of mixed alvin was isolated, suggesting probable contamination. No further testing will be performed. If clinically indicated, recollection using a method to minimize contamination, with prompt transfer to Urine Culture Transport Tube, is recommended. Performed By: #### 6 304R #### [facility] Default [address] [place] [address] Vital Signs Date Time Vital Sign Value Performing Clinician Facility 01-24-2023 10:00-0400 Hourly Rounding Mbanefo OJUKWU [facility] 01-24-2023 10:00-0400 Promise to Return Mbanefo OJUKWU [facility] 01-24-2023 09:00-0400 Hourly Rounding Mbanefo OJUKWU [facility] 01-24-2023 09:00-0400 Promise to Return Mbanefo OJUKWU [facility] 01-24-2023 08:29-0400 Diastolic blood pressure 73 mm[Hg] Mbanefo OJUKWU [facility] 01-24-2023 08:29-0400 Systolic blood pressure 157 mm[Hg] Mbanefo OJUKWU [facility] 01-24-2023 08:27-0400 Blood Pressure Location Mbanefo OJUKWU [facility] 01-24-2023 08:27-0400 Body temperature 97.7 [degF] Mbanefo OJUKWU [facility] 01-24-2023 08:27-0400 Diastolic blood pressure 73 mm[Hg] Mbanefo OJUKWU [facility] 01-24-2023 08:27-0400 Heart rate 82 /min Mbanefo OJUKWU [facility] 01-24-2023 08:27-0400 Respiratory rate 16 /min Mbanefo OJUKWU [facility] 01-24-2023 08:27-0400 Systolic blood pressure 157 mm[Hg] Mbanefo OJUKWU [facility] 01-24-2023 08:00-0400 Hourly Rounding Mbanefo OJUKWU [facility] 01-24-2023 08:00-0400 Promise to Return Mbanefo OJUKWU [facility] 01-24-2023 00:05-0400 Blood Pressure Location Mbanefo OJUKWU [facility] 01-24-2023 00:05-0400 Body temperature 97.7 [degF] Mbanefo OJUKWU [facility] 01-24-2023 00:05-0400 Diastolic blood pressure 76 mm[Hg] Mbanefo OJUKWU [facility] 01-24-2023 00:05-0400 Heart rate 83 /min Mbanefo OJUKWU [facility] 01-24-2023 00:05-0400 Mean blood pressure 99 mm[Hg] Mbanefo OJUKWU [facility] 01-24-2023 00:05-0400 SaO2% (BldA) [Mass fraction] 97 % Mbanefo OJUKWU [facility] 01-24-2023 00:05-0400 Systolic blood pressure 144 mm[Hg] Mbanefo OJUKWU [facility] 01-23-2023 19:36-0400 Heart rate 81 /min Mbanefo OJUKWU [facility] 01-23-2023 19:36-0400 SaO2% (BldA) [Mass fraction] 96 % Mbanefo OJUKWU [facility] 01-23-2023 19:36-0400 Body temperature 97.34 [degF] Mbanefo OJUKWU [facility] 01-23-2023 19:34-0400 Mean blood pressure 83 mm[Hg] Mbanefo OJUKWU [facility] 01-23-2023 13:00-0400 Body temperature 98.06 [degF] Mbanefo OJUKWU [facility] 01-23-2023 06:55-0400 Blood Pressure Location Mbanefo OJUKWU [facility] 01-23-2023 06:55-0400 Mean blood pressure 89 mm[Hg] Mbanefo OJUKWU [facility] 01-23-2023 06:55-0400 Respiratory rate 16 /min Mbanefo OJUKWU [facility] 01-23-2023 06:55-0400 SaO2% (BldA) [Mass fraction] 93 % Mbanefo OJUKWU [facility] 01-22-2023 23:00-0400 Body temperature 97.88 [degF] Mbanefo OJUKWU [facility] 01-22-2023 23:00-0400 Mean blood pressure 82 mm[Hg] Mbanefo OJUKWU [facility] 01-22-2023 23:00-0400 Respiratory rate 18 /min Mbanefo OJUKWU [facility] 01-22-2023 18:37-0400 Body temperature 97.52 [degF] Mbanefo OJUKWU [facility] 01-22-2023 18:36-0400 Mean blood pressure 81 mm[Hg] Mbanefo OJUKWU [facility] 01-22-2023 16:09-0400 Mean blood pressure 81 mm[Hg] Mbanefo OJUKWU [facility] 01-22-2023 16:07-0400 Body temperature 97.52 [degF] Mbanefo OJUKWU [facility] 01-22-2023 04:50-0400 Heart rate 77 /min Mbanefo OJUKWU [facility] 01-21-2023 21:09-0400 Heart rate 85 /min Mbanefo OJUKWU [facility] 01-21-2023 15:11-0400 Heart rate 78 /min Mbanefo OJUKWU [facility] 12-20-2022 09:37-0400 Hourly Rounding Maycol TSERING [facility] 12-20-2022 09:37-0400 Promise to Return Maycol TSERING [facility] 12-20-2022 09:06-0400 Heart rate 65 /min Maycol TSERING [facility] 12-20-2022 09:06-0400 Respiratory rate 20 /min Maycol TSERING [facility] 12-20-2022 09:06-0400 SaO2% (BldA) [Mass fraction] 92 % Maycol TSERING [facility] 12-20-2022 08:56-0400 Heart rate 61 /min Maycol TSERING [facility] 12-20-2022 08:56-0400 Respiratory rate 20 /min Maycol TSERING [facility] 12-20-2022 08:56-0400 SaO2% (BldA) [Mass fraction] 92 % Maycol TSERING [facility] 12-20-2022 08:51-0400 Hourly Rounding Maycol TSERING [facility] 12-20-2022 08:51-0400 Promise to Return Maycol TSERING [facility] 12-20-2022 08:50-0400 Hourly Rounding Maycol TSERING [facility] 12-20-2022 08:31-0400 Promise to Return Maycol TSERING [facility] 12-20-2022 07:29-0400 Heart rate 60 /min Maycolyasmine ARRIOLASLIN [facility] 12-20-2022 07:29-0400 SaO2% (BldA) [Mass fraction] 93 % Maycol TSERING [facility] 12-20-2022 07:28-0400 Body temperature 98.06 [degF] Maycol TSERING [facility] 12-20-2022 07:28-0400 Diastolic blood pressure 69 mm[Hg] Maycol TSERING [facility] 12-20-2022 07:28-0400 Mean blood pressure 94 mm[Hg] Maycol TSERING [facility] 12-20-2022 07:28-0400 Systolic blood pressure 143 mm[Hg] Maycolyasmine ARRIOLASLIN [facility] 12-20-2022 03:25-0400 Respiratory rate 16 /min Maycolyasmine ARRIOLASLIN [facility] 12-20-2022 00:15-0400 Body temperature 97.7 [degF] Maycolyasmine ARRIOLASLIN [facility] 12-20-2022 00:15-0400 Diastolic blood pressure 56 mm[Hg] Maycol TSERING [facility] 12-20-2022 00:15-0400 Systolic blood pressure 135 mm[Hg] Maycol TSERING [facility] 12-19-2022 19:28-0400 Body temperature 98.42 [degF] Macyol TSERING [facility] 12-19-2022 19:27-0400 Diastolic blood pressure 69 mm[Hg] Maycol TSERING [facility] 12-19-2022 19:27-0400 Mean blood pressure 90 mm[Hg] Maycol TSERING [facility] 12-19-2022 19:27-0400 Systolic blood pressure 134 mm[Hg] Maycol TSERING [facility] 12-19-2022 16:26-0400 gluc 111 mg/dL Maycol TSERING [facility] 12-19-2022 16:06-0400 Mean blood pressure 95 mm[Hg] Maycol TSERING [facility] 12-19-2022 16:00-0400 Body temperature 98.06 [degF] Maycol TSERING [facility] 12-19-2022 11:58-0400 gluc 201 mg/dL Maycol TSERING [facility] 12-19-2022 08:18-0400 gluc 93 mg/dL Maycol TSERING [facility] 12-19-2022 08:00-0400 Body temperature 98.6 [degF] Maycol TSERING [facility] 12-18-2022 05:46-0400 Blood Pressure Location Maycol TSERING [facility] 12-18-2022 05:46-0400 Heart rate 67 /min Maycol TSERING [facility] 12-18-2022 05:00-0400 Body temperature 98.42 [degF] Maycol TSERING [facility] 12-18-2022 05:00-0400 Mean blood pressure 78 mm[Hg] Maycol TSERING [facility] 12-18-2022 05:00-0400 Respiratory rate 20 /min Maycol TSERING [facility] 12-18-2022 04:00-0400 Mean blood pressure 77 mm[Hg] Maycol TSERING [facility] 12-18-2022 04:00-0400 Respiratory rate 21 /min Maycol TSERING [facility] 12-18-2022 03:00-0400 Mean blood pressure 75 mm[Hg] Maycol TSERING [facility] 12-18-2022 03:00-0400 Respiratory rate 22 /min Maycol TSERING [facility] 12-18-2022 00:09-0400 Heart rate 85 /min Maycol TSERING [facility] 12-17-2022 23:54-0400 Heart rate 86 /min Maycol TSERING [facility] 12-02-2022 14:00-0400 SaO2% (BldA) [Mass fraction] 93 % Maycol TSERING [facility] 12-02-2022 13:00-0400 Hourly Rounding Maycol TSERING [facility] 12-02-2022 13:00-0400 Promise to Return Maycol TSERING [facility] 12-02-2022 12:58-0400 Heart rate 85 /min Maycol TSERING [facility] 12-02-2022 12:58-0400 SaO2% (BldA) [Mass fraction] 88 % Maycol TSERING [facility] 12-02-2022 12:58-0400 Body temperature 97.7 [degF] Maycolyasmine ARRIOLASLIN [facility] 12-02-2022 12:58-0400 Diastolic blood pressure 75 mm[Hg] Maycol TSERING [facility] 12-02-2022 12:58-0400 Mean blood pressure 102 mm[Hg] Maycol TSERING [facility] 12-02-2022 12:58-0400 Systolic blood pressure 157 mm[Hg] Maycol TSERING [facility] 12-02-2022 12:10-0400 Hourly Rounding Maycol TSERING [facility] 12-02-2022 12:10-0400 Promise to Return Maycol TSERING [facility] 12-02-2022 11:30-0400 Hourly Rounding Maycol TSERING [facility] 12-02-2022 11:30-0400 Promise to Return Maycol TSERING [facility] 12-02-2022 08:00-0400 Blood Pressure Location Maycol TSERING [facility] 12-02-2022 08:00-0400 Diastolic blood pressure 79 mm[Hg] Maycol TSERING [facility] 12-02-2022 08:00-0400 gluc 127 mg/dL Maycol TSERING [facility] 12-02-2022 08:00-0400 Heart rate 76 /min Maycol TSERING [facility] 12-02-2022 08:00-0400 Respiratory rate 20 /min Maycol TSERING [facility] 12-02-2022 08:00-0400 Systolic blood pressure 141 mm[Hg] Maycolyasmine ARRIOLASLIN [facility] 12-02-2022 07:46-0400 Heart rate 66 /min Maycol TSERING [facility] 12-02-2022 07:46-0400 Respiratory rate 18 /min Maycol TSERING [facility] 12-02-2022 07:40-0400 Respiratory rate 18 /min Maycol TSERING [facility] 12-01-2022 23:32-0400 Body temperature 97.16 [degF] Maycol TSERING [facility] 12-01-2022 23:32-0400 Diastolic blood pressure 77 mm[Hg] Maycolyasmine ARRIOLASLIN [facility] 12-01-2022 23:32-0400 Mean blood pressure 101 mm[Hg] Maycol TSERING [facility] 12-01-2022 23:32-0400 Systolic blood pressure 130 mm[Hg] Maycol TSERING [facility] 12-01-2022 20:01-0400 Body temperature 97.16 [degF] Maycol TSERING [facility] 12-01-2022 20:01-0400 Mean blood pressure 101 mm[Hg] Maycol TSERING [facility] 12-01-2022 12:07-0400 Body temperature 97.52 [degF] Maycol TSERING [facility] 12-01-2022 07:30-0400 Body temperature 96.98 [degF] Maycol TSERING [facility] 12-01-2022 06:00-0400 gluc 110 mg/dL Maycol TSERING [facility] 11-30-2022 23:32-0400 FIO2 30 % Maycol TSERING [facility] 11-30-2022 20:04-0400 Mean blood pressure 98 mm[Hg] Maycol TSERING [facility] 11-30-2022 04:38-0400 Mean blood pressure 91 mm[Hg] Maycol TSERING [facility] 11-29-2022 20:16-0400 FIO2 30 % Maycol TSERING [facility] 11-29-2022 19:00-0400 Blood Pressure Location Maycol TSERING [facility] 11-29-2022 08:10-0400 FIO2 30 % Maycol TSERING [facility] 11-29-2022 04:08-0400 gluc 107 mg/dL Maycol TSERING [facility] 11-29-2022 04:08-0400 Mean blood pressure 80 mm[Hg] Maycol TSERING [facility] 11-29-2022 00:16-0400 Heart rate 48 /min Maycol TSERING [facility] 11-28-2022 22:55-0400 Respiratory rate 19 /min Maycol TSERING [facility] 11-28-2022 21:45-0400 Respiratory rate 18 /min Maycol TSERING [facility] 11-28-2022 20:45-0400 Respiratory rate 22 /min Maycol TSERING [facility] 11-28-2022 18:55-0400 SaO2% (BldA) [Mass fraction] 95.4 % Maycol CAGLE [facility] 11-28-2022 17:13-0400 Heart rate 59 /min Maycol CAGLE [facility] 09-07-2022 01:10-0400 Diastolic blood pressure 53 mm[Hg] [facility] 09-07-2022 01:10-0400 Heart rate 70 /min [facility] 09-07-2022 01:10-0400 SaO2% (BldA) [Mass fraction] 96 % [facility] 09-07-2022 01:10-0400 Systolic blood pressure 135 mm[Hg] [facility] Encounters Encounter Date Encounter Type Care Provider Facility Start: 03-22-2024 End: 03-22-2024 [facility] Start: 03-21-2024 End: 03-21-2024 Telephone encounter Cortney [...] Start: 01-21-2024 End: 01-21-2024 ambulatory SHAWN ALEGRIA [facility] Start: 01-15-2024 Evaluation and management of inpatient HAYLEY [facility] Start: 01-14-2024 Evaluation and management of inpatient HAYLEY [facility] Start: 01-12-2024 Evaluation and management of inpatient ARIC MIRZA [facility] Start: 01-11-2024 Evaluation and management of inpatient DONNIE [facility] Start: 01-10-2024 [facility] Start: 01-10-2024 [facility] Start: 01-09-2024 Evaluation and management of inpatient [facility] Start: 01-09-2024 End: 01-09-2024 ambulatory UNKNOWN PROVIDER Facility:[facility] Start: 01-09-2024 End: 01-16-2024 Evaluation and management of inpatient YESENIA HUGHESBETH [facility] Start: 01-04-2024 End: 01-17-2024 Emergency department patient visit [facility] Start: 02-01-2023 ambulatory Robin Garcia acility:[facility] Start: 01-21-2023 End: 01-24-2023 Evaluation and management of inpatient [place] [facility] Start: 01-21-2023 End: 01-24-2023 Evaluation and management of inpatient Johnnieshahnaz OJUKWU [facility] Start: 01-15-2023 End: 01-16-2023 ambulatory Donta NOONAN Facility:CD:[id number] Start: 01-15-2023 End: 01-15-2023 Off-Site [facility] Start: 12-22-2022 End: 12-23-2022 ambulatory Donta NOONAN Facility:CD:[id number] Start: 12-22-2022 End: 12-22-2022 Off-Site [facility] Start: 12-18-2022 End: 12-20-2022 Evaluation and management of inpatient Maycol A TSERING [facility] Start: 12-17-2022 End: 12-20-2022 Evaluation and management of inpatient Maycol A TSERING [facility] Start: 12-14-2022 End: 01-16-2023 ambulatory Donta NOONAN Facility:CD:[id number] Start: 12-14-2022 End: 01-16-2023 In-Between Visit [facility] Start: 12-11-2022 ambulatory Donta NOONAN Facilit y:[facility] Start: 12-03-2022 End: 12-03-2022 Off-Site [facility] Start: 12-03-2022 End: 12-04-2022 ambulatory Donta NOONAN Facility:CD:[id number] Start: 12-02-2022 End: 01-16-2023 ambulatory Donta [place] Facility[facility] Start: 11-30-2022 ambulatory Facility:[id number] Start: 11-30-2022 ambulatory Facility:[id number] Start: 11-29-2022 ambulatory Facility:[id number] Start: 11-29-2022 End: 12-02-2022 Evaluation and management of inpatient Maycol A TSERING Facility[facility] Start: 11-28-2022 End: 12-02-2022 Evaluation and management of inpatient Maycol A TSERING [facility] Start: 11-26-2022 End: 11-27-2022 ambulatory Bienvenido Barroso [facility] Start: 11-26-2022 End: 11-26-2022 Patient encounter procedure Bienvenido Barroso [facility] Start: 09-26-2022 End: 09-28-2022 ambulatory Ganesh Minaya Facility[facility] Start: 2022 End: 2022 ambulatory [facility] Emergenc y Triage, Treat and Transport Start: 2022 End: 2022 Emergency department patient visit [facility] Emergency Triage, Treat and Transport Comment [...] screening for protein Diabetes: Urine Protein Screening [facility] Start: 01-23-2024 Influenza vaccination Influenza Vacc ine (#1) [facility] Start: 01-02-2023 Hemoglobin A1c measurement Diabetes: Hemoglobin A1C [facility] Start: 10-15-2022 Medicare Annual Well ness (AWV) Medicare Annual Wellness (AWV) [facility] Start: 09-21-2022 Annual Wellness Visi t (G0439) Annual Wellness Visit (G0439) [facility] Start: 05-14-2018 Pneumococcal vaccination Pneum ococcal [...] 1955 Glaucoma screening Diabetes: R etinopathy Screening [facility] BLOOD CULTURE 1 BLOOD CULTURE 1 Lab Routine 03/07/2024 1:08 PM EDT [facility] BLOOD CULTURE 2 BLOOD CULTURE 2 Lab Routine 03/07/2024 1:28 PM EDT [facility] Immunizations Immunization Date Immunization Notes Care Provider [facility] 03-12-2022 SARS-CoV-2 (COVID-19 ) [id number] Donta NOONAN [facility] 02-04-2022 influenza virus vaccine, unspecified formulation Rebecca Alcala MD Work Phone: [facility] 03-17-2021 Influenza, injectabl e, high-dose seasonal, quadrivalent, 0.7 mL, preservative free (KWK=079) [facility] 07-15-2020 Pfizer (12+ yrs) SARS-COV-2 (COVID-19) vaccine, mRNA, spike protein, LNP, pres. free, 30 mcg/0.3mL dose (NKZ=598) [facility] 06-26-2020 Pfizer (12+ yrs) SARS-COV-2 (COVID-19) vaccine, mRNA, spike protein, LNP, pres. free, 30 mcg/0.3mL dose (SEC=235) [facility] 06-23-2019 influenza, high dose seasonal, preservative-free [facility] 05-14-2017 influenza, high dose seasonal, preservative-free [facility] 05-14-2017 pneumococcal conjuga te vaccine, 13 valent [facility] 04-04-2014 influenza, injectabl e, madin cee canine kidney, preservative free [facility] NEGATED: Highlighted row has not occurred!06-15-2014 pneumococcal polysaccharide vaccine, 23 valent Bienvenido Barroso [facility] Comment on above: Result Note: pt had vaccine last year per Payers Date Payer Category Payer Medicaid [id number] 2023 Self-pay 2022 Unknown [id number] 2022 Medicare [employer] [id number] 2022-Present [address] [place] [address] Medicare [id number] 2022 Unknown [id number] 2022 Medicare (Managed Care) [employer] [id number] 2022 Unknown [employer] [id number] 2022-Present [address] [place] [id number] [id number] 1944 Unknown [id number] 2.16.840.1.763444.3.579.2. 356 1944 Unknown [id number] 2.16.840.1.084129.3.579.2. 356 1944 Unknown [id number] 2.16.840.1.897839.3.579.2. 356 1944 Unknown [id number] 2..840.1.923350.3.579.2. 72 1944 Unknown [id number] 2.16.840.1.268560.3.579.2. 1944 Unknown [id number] 2..840.1.108879.3.579.2. 1944 Unknown [id number] 2..840.1.364302.3.579.2. 1944 Unknown [id number] 2.840.1.276751.3.579.2. 1944 Unknown [id number] 2..840.1.842923.3.579.2. 1944 Unknown [id number] 2.840.1.510740.3.579.2 1944 Unknown [id number] 2.840.1.518551.3.579.2. 1944 Unknown [id number] .840.1.548924.3.579.2. 1944 Unknown [id number] 2.840.1.741122.3.579.2. 1944 Unknown [id number] .840.1.107582.3.579.2 1944 Unknown [id number] 2..840.1.668351.3.579.2. 1944 Unknown [id number] 2.840.1.785922.3.579.2. 73 1944 Unknown [id number] 2.840.1.797413.3.579.2. 1286 Social History Date Type Detail Facility Tobacco smoking stat [facility] Tobacco smoking consumption unknown [facility] Start: 1945 Sex Assigned At Not on file [facility] Start: 04-24-2021 End: 10-19-2022 Tobacco smoking status Ex-smoker (finding) [facility] Start: 11-25-2022 Sex Assigned At Male F [facility] End: 05-24-1959 History of tobacco use Current smoker [facility] End: 05-24-1960 History of tobacco use Cigarette Smoker [facility] Start: 11-25-2022 Alcoholic beverage intake Lifetime non-drinker (finding) [facility] Start: 11-25-2022 History of Social function [facility] Start: 10-19-2022 Alcohol Comment Caffeine: 1-2 cups/day, occasional soda [facility] Medical Equipment Procedure Code Equipment Code Equipment Origin al Text Equipment Identifier Dates 1 each by Other route if needed (3x as needed daily). Use as instructed [id number] Start: 10-21-2022 Functional Status Date Assessment Result Facility 01-21-2023 Functional Status No [facility] 01-21-2023 Functional Status [facility] 12-18-2022 Functional Status N/A [facility] 12-17-2022 Functional Status [facility] 11-29-2022 Functional Status N/A [facility] 11-28-2022 Functional Status [facility] Clinical Notes 09-07-2022 to 03-22-2024 Telephone Encounter - Cortney Nicholson NP - 03/21/2024 9:22 AM EDTTelephone Encounter - Cortney Nicholson NP - 03/21/2024 9:22 AM EDT Note Date & Type Note Facility 03-22-2024 Note [facility] Subjective Clyde Humphrey is a 78 y.o. year old male patient being seen for heart block (S/p pacemaker insertion in Dec 2023) and Pacemaker Check (Per [employer] rep - He's had 12.7 hours of afib since Dec 2023, with a burden of < 1%. ) Patient Active Problem List Diagnosis Heart block Onychomycosis Pain in left toe(s) Pain in right toe(s) Type II diabetes mellitus with neurological manifestations (CMS/HCC) Pacemaker HPI Patient was transferred from [facility] to [facility] on 01/09/2024 because of complete heart block discovered in the snf upon checking of his vitals. He did [...] to severe bradycardia. He has been in snf. He is on oxygen at 4 L/min [...] Diagnosis Date COPD (chronic obstructive pulmonary disease) ([facility]) Seizure ([facility]) Sleep apnea No past surgical history on [...] or gallops. RESPIRAT (more content not included)... [facility] 03-21-2024 Telephone encounter Note Rx for ativan is sent for this [facility] patient today. #90 tabs. [facility] 03-21-2024 Miscellaneous Notes Rx for ativan is sent for this [facility] patient today. #90 tabs. documented in this encounter [facility] 01-21-2024 Note Patient underwent [employer] pacemaker implantation due to third-degree AV [...] follow-up appointment with cardiology in 2 months [facility] 01-16-2024 Note DUAL CHAMBER PACEMAK ER IMPLANT PROCEDURE NOTE DATE OF PROCEDURE: 01/10/24 PERFORMING PHYSICIAN: Dr. Reno Welch CONSENT: Patient LOCATION: EP Lab PROCEDURE PERFORMED: 1. Implantation of pacemaker ([employer]) 2. Ultrasound guided venous access INDICATIONS: [...] 78-year-old man who is transferred from the [facility] for complete heart block. This was discovered at the snf where he resides when the nurses noted [...] using modified seldinger technique using a 5 Bengali micro-puncture needle on two occasions and 0.35 [...] for the device above the muscle. 6 Bengali Safesheaths were placed over the wire. An active fixation [employer] pacing lead was then delivered through the 6Fsheath to the right ventricle. After confirmation of lead position on orthogonal views (GOMEZ and CYMRO) to confirm septal position, the screw was activated, and the lead was placed in the right ventricular mid cavity towards the septum. After confirmation of good sensing parameters, injury pattern and pacing thresholds, 10V pacing was done and no diaphragmatic stimulation was noted. It was then secured in the pocket using three 1-0 Silk sutures. Then an active fixation [employer] lead was delivered through the 6Fsheath to the right atrial appendage. After confirmation of lead position on orthogonal views (GOMEZ and CYMRO), the screw was activated. Good sensing parameters, [...] any concerns. Reno Welch MD Cardiac Electrophysiology [facility] 01-16-2024 Note Physical Therapy Physical Therapy Patient Name: Clyde Humphrey Today's Date: 01/16/2024 Admit Date: 01/09/2024 Time: 8:55 AM Attempted PT treatment today however RN reports patient being agitated at this time, will check back later as able. No charges associated with this encounter. [facility] 01-16-2024 Note discharge planning: to [facility] [id number] Insurance Approval Letter received for Patient to discharge to [facility]; Discharge Order in place; notice of insurance approval and discharge order sent to SNF, via [facility] system, with request to confirm they have a bed available for Patient to return to them today (awaiting reply) 1129 communication received from [facility], via [facility] system: Yes please call report to [phone] station 2. Please FAX pr med list to [phone] as I am not in the building today ^bedside RN and [facility] notified of bed available today 1135 Patient resting in bed, principal technical writer unable to wake ([phone]) PC to Patient's spouse, to notify of discharge order and bed available and transport arrangements; no answer; vm left with contact information and request for return call 1152 AVS faxed to [facility] [phone] ([phone]) PC to Patient's spouse, to notify of discharge order and bed available and transport arrangements; no answer; second voicemail not left ([phone]) PC to Patient's daughter Amy, to notify of discharge order and transport time; Amy stating Patient's spouse lives at [facility] as well, so would not be answering her phone; principal technical writer notified Amy of 1:30p pickup time for transportation to return to [facility] 1206 AVS and transport time sent to [facility] via CarePort system Discharge Transportation Packet placed with Patient's physical charte Transportation scheduled for 1:30p pickup Nurse call report to [facility] [phone] Station 2 ^bedside RN, RucCC notified [facility] 01-16-2024 Note Hospital Medicine Daily Progress Note - 01/16/2024 7:25 AM; Room: [address] [place] [address] Admission: 01/09/2024 1:24 AM; Length of stay: 7 days THE HOSPITALIST TEAM PREFERS TO USE [employer] CHAT FOR COMMUNICATION 7AM-7PM. IF I DO NOT RESPOND WITHIN 15 MINUTES, PLEASE PAGE ME/CALL THROUGH THE NAPPER GRINDER. FROM 7PM-7AM, PLEASE PAGE [phone](COVR) Code Status: Full Code Barriers to Discharge: None Expected Discharge Date: 01/15 Discharge Destination: [facility] facility Overview Patient is seen for evaluation [...] , FREET4 , CORTISOL , FEV1 , VDG9RCA , DLCO , RVSP , HDL , LDL Lab Results Component Value Date [id number] 179 (L) 01/13/2024 IRON 37 (L) 01/13/2024 [...] Santiago MD. Discharge Planning Expected Discharge Disposition: Alf Facility (03) PT Disc (more content not included)... [facility] 01-15-2024 Note Hospital Medicine Discharge Summary Final Discharge Diagnosis: Third degree heart block Admission Diagnosis: Heart block [I45.9] Hospital course: 78yoM with history of dementia, seizure disorder, COPD, hypertension who was admitted to [facility] on 01/08 for complete heart block. Patient initially presented to [facility] for multiple episodes of presyncope and heart rate was noted to be in 30s. Confirmed complete AV disassociation and the patient was transferred to [facility] for EP evaluation. He was initially [...] Time Provider Department Center 01/17/2024 1:30 PM [facility] CV CLINIC DEVICE CHECK HVC CARD [facility] [facility] Your medication list START taking these [...] Medications These medications were sent to [facility] - [place], [place] - [address], [facility] [address] divalproex 500 mg EC tablet spironolactone 25 mg tablet Information about where to get these medications is not yet available Ask your nurse or doctor about these medications cyanocobalamin 1,000 mcg tablet doxycycline 100 mg capsule Clyde has No Known Allergies. Disposition: Alf Facility (03) Discharge Condition: Stable Code Status: [...] Lab Units 01/15/24 (more content not included)... [facility] 01-14-2024 Note 01/14/24 1300 Post Acute Info Authorization started for SNF () Facility name [facility] When was authorization started? 01/13/24 What time was authorization started? 1038 Reference number for submission ([id number]) Determination Approved OTM staff notified Sherley Rivers When was authorization received? 01/14/24 What time was authorization received? 1302 When does authorization ? 01/21/24 How are we submitting authorization Website Portal What insurance are we submitting through (mobileo) Approved authorization for [facility] SNF, OTM notified. [facility] 01-14-2024 Note Hospital Medicine Daily Progress Note - 01/14/2024 11:18 AM; [facility]: [facility] Admission: 01/09/2024 1:24 AM; Length of stay: 5 days THE HOSPITALIST TEAM PREFERS TO USE [employer] CHAT FOR COMMUNICATION 7AM-7PM. IF I DO NOT RESPOND WITHIN 15 MINUTES, PLEASE PAGE ME/CALL THROUGH THE NAPPER GRINDER. FROM 7PM-7AM, PLEASE PAGE [phone](COVR) Code Status: Full Code Barriers to Discharge: Precert Expected Discharge Date: 01/13 Discharge Destination: [facility] facility Overview Patient is seen for evaluation [...] , FREET4 , CORTISOL , FEV1 , MBC7UJY , DLCO , RVSP , HDL , LDL Lab Results Component Value Date [id number] 179 (L) 01/13/2024 IRON 37 (L) 01/13/2024 TIBC 244 (L) 01/13/2024 Imaging Electrophysiology procedure Narrative: DUAL CHAMBER PACEMAKER IMPLANT PROCEDURE NOTE DATE OF PROCEDURE: 01/10/24 PERFORMING PHYSICIAN: Dr. Reno Welch CONSENT: Patient LOCATION: EP Lab PROCEDURE PERFORMED: 1. Implantation of pacemaker ([employer]) 2. Ultrasound guided venous access INDICATIONS: 1. 3rd degree AV block 2. Junctional bradycardia PROCEDURAL SEDATION: Versed and Fentanyl. Moderate sedation was administered by the sedation nurse under my supervision and noted in the (more content not included)... [facility] 01-14-2024 Note Occupational Therapy Occupational Therapy Treatment Patient Name: Clyde Humphrey : 1945 Today's Date: 01/14/2024 Problem List Patient Active Problem List Diagnosis Heart block Pain: Objective General Visit Information: OT Last Visit OT Received On: 01/14/24 General Subjective: RN reports pt is appropriate for session. On arrival pt [place] but use of writing communication for pt [...] transfers standing five minutes 01/12/24 02/09/24 -- [facility] 01-13-2024 Note Speech Engineering Inspector ology Speech/Language Pathology Clinical Swallow Assessment [...] Called and spoke to Sierra RN at [facility] and she reported he always wears dentures and does not having swallowing issues prior to this admission at [facility]. Baseline Assessment Temperature Spikes Noted: Not applicable History of Intubation: No Behavior/Cognition: Alert, Cooperative (very hard of hearing due to not having his hearing aides in hospital) Dentition: Edentulous (per [facility] ECF, pt wears dentures, but they are not at hospital) Patient Positioning: Upright in bed Baseline Vocal Quality: Normal Volitional Swallow: Within Functional Limits Diet Level Prior to exam: Regular diet with thin liquid No family present for exam History of Present Illness Clyde Humphrey is a 78-year-old gentleman with past medical history significant for dementia has been transferred from [facility] due to high degree AV block. The patient is unable to answer questions appropriately due to his dementia so history was only taken by the signout received from [facility]. The patient was noted to have multiple episodes of presyncope over the last few days and today his heart rate was noted to be in 30s upon their initial evaluation. EKG showed a complete A-V dissociation after which thick reached out to [facility] cardiology for possible pacemaker placement. Due to significant bradycardia the patient is being transferred to [facility] ICU for close hemodynamic monitoring and [...] Medications: Crushed Recommendations Duration of Treatment: 15 [facility] 01-13-2024 Note 01/13/24 1038 Post Acute Info Authorization started for SNF (03) Facility name [facility] When was authorization started? 01/13/24 What time was authorization started? 1038 Reference number for submission ([id number]) How are we submitting authorization Website Portal What insurance are we submitting through (mobileo) Submitted precert request for [facility] SNF, OTM to follow. [facility] 01-13-2024 Note Attempted to call Wi pee Dooley to confirm return to [facility] SNF as well as get consent to start pre-cert with no answer and going to voicemail. Called listed aidan Parks [phone] who answered and stated that Soumya has stage 4 cancer and is also currently at [facility] and also cited that her cognition has declined substantially. Aidan Parks also cited that she is pt's HCPOA. Obtained confirmation of intent to return and also to start the pre-cert to return to [facility]. Requested OTM to start pre-cert and updated AVS. UPDATE 11:05AM- [facility] confirmed that aidan Parks is an alternate HCPOA and also advised it would be better to contact her. [facility] 01-13-2024 Note Hospital Medicine Daily Progress Note - 01/13/2024 8:09 AM; Room: [address] [place] [address] Admission: 01/09/2024 1:24 AM; Length of stay: 4 days THE HOSPITALIST TEAM PREFERS TO USE [employer] CHAT FOR COMMUNICATION 7AM-7PM. IF I DO NOT RESPOND WITHIN 15 MINUTES, PLEASE PAGE ME/CALL THROUGH THE NAPPER GRINDER. FROM 7PM-7AM, PLEASE PAGE [phone](COVR) Code Status: Full Code Barriers to Discharge: Precert Expected Discharge Date: 01/13 Discharge Destination: [facility] facility Overview Patient is seen for evaluation [...] , FREET4 , CORTISOL , FEV1 , DOI9QEB , DLCO , RVSP , HDL , LDL No results found for: EYOQFSSV24 , IRON , TIBC , C3 , [...] There are intracranial (more content not included)... [facility] 01-12-2024 Note Daughter, felipe Parks via phone concerning pt transfer to [facility] from MICU and pt status improvements/plan of care. [facility] 01-12-2024 Note Attestation signed by Cody Richardson MD at 01/12/2024 11:36 PM I reviewed the salient portions of the patient history. I have seen and examined the patient during rounds with the resident/fellow. I repeated the guajardo components of the exam. Agree with the noted assessment and plan. Cody Richardson MD [facility]icians Pulmonary and Critical Care Medicine Pulmonary Progress Note Patient - Clyde Humphrey Age - 78 y.o. [facility] 1945 [id number] Date of Admission - 01/09/2024 1:24 AM HPI/Hospital Course Clyde Humphrey is a 78-year-old gentleman with past medical history significant for dementia has been transferred from [facility] due to high degree AV block. The patient is unable to answer questions appropriately due to his dementia so history was only taken by the signout received from [facility]. The patient was noted to have multiple episodes of presyncope over the last few days and today his heart rate was noted to be in 30s upon their initial evaluation. EKG showed a complete A-V dissociation after which thick reached out to [facility] cardiology for possible pacemaker placement. Due to significant bradycardia the patient is being transferred to [facility] ICU for close hemodynamic monitoring and [...] patient's raccoon eyes (more content not included)... [facility] 01-12-2024 Note Physical Therapy Physical Therapy Evaluation Patient Name: Clyde Humphrey : 1945 Today's Date: 01/12/2024 Patient is a 78 y/o male presenting from [facility] and OSH with heart block. Episodes of [...] Diagnosis Date COPD (chronic obstructive pulmonary disease) ([facility]) Seizure ([facility]) Sleep apnea No past surgical history on [...] time, Follows one step commands with repetition ([place] makes command following difficult) General Assessment General Assessment Hearing: Significantly [place] - best communication by writing Home Living Home Living Type of Home: detention Home Adaptive Equipment: Walker rolling, Wheelchair-power Prior Level of Function Prior Function Level of [place]: Needs assistance with ADLs, Needs assistance with [...] room: Total He (more content not included)... [facility] 01-12-2024 Note Occupational Therapy Occupational Therapy Evaluation Patient Name: Clyde Humphrey : 1945 Today's Date: 01/12/2024 Time In: 1015 Time Out: 1039 Clyde Humphrey is a 78-year-old gentleman with past medical history significant for dementia has been transferred from [facility] due to high degree AV block. PPM 01/10/24 General Subjective: friendly and cooperative but not a reliable historian, he is very [place] but able to read Patient Active Problem List Diagnosis Heart block Past Medical History: Diagnosis Date COPD (chronic obstructive pulmonary disease) ([facility]) Seizure ([facility]) Sleep apnea No past surgical history on [...] redirect Memory: Decreased short term memory, Decreased chcf memory Communication: Intact General Assessment General Assessment Hearing: (very [place]) Home Living Home Living Type of Home: detention Home Adaptive Equipment: Wheelchair-power Prior Level of Function Prior Function Level of [place]: Needs assistance with ADLs, Needs assistance with [...] Eating meals?: None (Independent) Total Score OT [facility]: 14 Assessment/Plan OT Assessment OT Impairments: [...] until discharge & PRN OT Discharge Recommendations: retirement facility placement OT - Discharge Recommendations Placed: [...] LTG - Pat (more content not included)... [facility] 01-12-2024 Note Phoned pt's to discuss DC plan to return to [facility]. [facility] is requesting precert to accept pt back under skilled. Await call back, Await PT/OT recommendations. [facility] 01-12-2024 Note Updates sent to [facility] 01-11-2024 Note Attestation signed by Cody Richardson MD at 01/11/2024 9:49 PM I reviewed the salient portions of the patient history. I have seen and examined the patient during rounds with the resident/fellow. I repeated the guajardo components of the exam. Agree with the noted assessment and plan. Cody Richardson MD [facility] Physicians Pulmonary and Critical Care Medicine Pulmonary Progress Note Patient - Clyde Humphrey Age - 78 y.o. - 1945 N - [id number] [id number] Date of Admission - 01/09/2024 1:24 AM HPI/Hospital Course Clyde Humphrey is a 78-year-old gentleman with past medical history significant for dementia has been transferred from [facility] due to high degree AV block. The patient is unable to answer questions appropriately due to his dementia so history was only taken by the signout received from [facility]. The patient was noted to have multiple episodes of presyncope over the last few days and today his heart rate was noted to be in 30s upon their initial evaluation. EKG showed a complete A-V dissociation after which thick reached out to [facility] cardiology for possible pacemaker placement. Due to significant bradycardia the patient is being transferred to [facility] ICU for close hemodynamic monitoring and [...] Intake/Output Summary (Last 24 hours) at 01/11/2024 7784 Last data filed at 01/11/2024 1253 Gross [...] fall? Also requested (more content not included)... [facility] 01-11-2024 Note Problem: Depression Goal: LTG-Alleviate [...] goals for the shift include Stable hemodynamics [facility] 01-11-2024 Note Attestation signed by Guilherme [...] MD Cardiology Progress Note Subjective Subjective: S/p [employer] DC-PPM. No overnight events. Mentation appears [...] QT Interval 514 QTC CALCULATION(BAZETT) 439 P [place] -25 R-[place] -30 T Wave [place] -28 Impression Sinus tachycardia with complete heart [...] (TTE) complete Result Date: 01/10/2024 1 1 [facility] Heart Station [address] [place] [address] [phone] (fax) Echocardiogram-[facility] Name: CLYDE HUMPHREY Study Date: 01/10/2024 01:43 PM B/P: 107 mmHg/64 mmHg HR: 52 bpm Date of : 1945 Location: [facility] Height: 65 in. Age: 78 year(s) Patient Room: 3235 Weight: 218 lb. Gender: Male Patient Status: InPt BSA: 2.05 m2 Indication: Complete heart block, d (more content not included)... [facility] 01-10-2024 Note Attestation signed by Cody [...] was 36 minutes. Cody Richardson MD [facility] Physicians Pulmonary and Critical Care Medicine Pulmonary Progress Note Patient - Clyde Humphrey Age - 78 y.o. - 1945 [id number] Date of Admission - 01/09/2024 1:24 AM HPI/Hospital Course Clyde Humphrey is a 78-year-old gentleman with past medical history significant for dementia has been transferred from [facility] due to high degree AV block. The patient is unable to answer questions appropriately due to his dementia so history was only taken by the signout received from [facility]. The patient was noted to have multiple episodes of presyncope over the last few days and today his heart rate was noted to be in 30s upon their initial evaluation. EKG showed a complete A-V dissociation after which thick reached out to [facility] cardiology for possible pacemaker placement. Due to significant bradycardia the patient is being transferred to [facility] ICU for close hemodynamic monitoring and [...] shift. Patchy hypoattenuation (more content not included)... [facility] 01-10-2024 Note Consulted with notif ication that patient is from a snf. Has dementia. No family at bedside. Appears patient may be from [facility] - message left for spouse, Soumya. Preliminary referral made to [facility] to confirm. [facility] 01-10-2024 Note Problem: Depression Goal: LTG-Alleviate [...] goals for the shift include Stable hemodynamics [facility] 01-10-2024 Note Attestation signed by Guilherme [...] QT Interval 514 QTC CALCULATION(BAZETT) 439 P [place] -25 R-[place] -30 T Wave [place] -28 Impression Sinus tachycardia with complete heart [...] Maintain telemetry Optimize electrolytes Trang Eagle MD Manager Of Construction - PGY5 [facility] 01-09-2024 Note Attestation signed by Donnie Cavazos MD at 01/09/2024 1:28 PM I was present during the critical portion of the procedure and immediately available to assist Arterial line placement PATIENT: Clyde Humphrey DATE: 01/09/2024 PROCEDURE NAPPER GRINDER: Art Suh MD ATTENDING PHYSICIAN: Donnie Cavazos [...] PGY6 [facility] Pulmonary/Critical Care 01/09/2024 5:45 AM [facility] 01-24-2023 Evaluation + Plan note Extrac gi from: Title:Discharge Note Author:New Johnson DO Date:01/24/23 Discharge To, Anticipated II - Alf Unit Discharged to - Home independently Transported [...] When Contact Information Dharmesh POTTS, Bienvenido Chavira, [address] [place] [address]- Additional Instructions: Dementia, Cket-da-Ilar Extracted from: Title:APSO Note Author:New Johnson DO [...] Ordered: Initial Hospital Care/Day Moderate 55 Minutes 06763 Sbsq Hospital Care/Day Straight Fwd 25 Minutes 39380 2. Alzheimers disease (G30.9: Alzheimer's disease, unspecified) [...] Ordered: Initial Hospital Care/Day Moderate 55 Minutes 05761 2. Alzheimers disease (G30.9: Alzheimer's disease, unspecified) [...] improving gait and building on physical strength. [facility]09-03-2023 IndiaBlanchard Valley Health SystemComment on above:Result Comment: Electronically Signed By: New Johnson DO\.br\Date and Time Signed: 01/24/23 09:57 [id number] Hospital Discharge instructions Patient Education 01/24/2023 09:54:03 Dementia, Vrmj-xq-Bcrq Dementia Dementia is a condition that affects [...] Follow these instructions at home: Medicines Take guad-gbr-tscgufl and prescription medicines only as told by [...] find more information Alzheimer's Association: www.alz.org National [place] on Aging: www.susie.nih.gov/alzheimers World Health Organization: www.who.int [...] the National Suicide Prevention Lifeline at or 515 in the [place] This is open 24 hours a day. Text the Crisis Text Line at 993613. Summary Dementia often affects memory and thinking. [...] provider. Document Revised: 12/03/2021 Document Reviewed: 09/23/2020 [employer] Patient Education 2022 Anhelo. Follow Up Care 01/21/2023 15:06:04 With:Dharmesh POTTS, Bienvenido Chavira, [facility] Address: [address] [place] [address] When: Unknown [facility]08-31-2023 NoteBlanchard Valley Health SystemComment on above:Result Comment: Electronically Signed By: New Johnson DO.br\Date and Time Signed: 01/21/23 17:53 [id number] Evaluation + Plan note Extracted from: Title:Discharge Note Author:MICHAEL POTTS, Jamir Gerry e:12/20/22 stable Discharge To, Anticipated II - Alf Unit Discharged to - retirement unit SNF Discharge Diet(s): Calorie Controlled- 1800 Calorie Diet (12/20/22 09:46:00) Prescriptions alprazolam 0.5 mg Tab, 0.5 mg= 1 tab(s), Oral, Daily, PRN aspirin 81 mg Oral EC Tab, 81 mg= 1 tab(s), Oral, Daily Augmentin 875 mg oral tablet, 1 tab(s), Oral, q12hr ergocalciferol 50,000 intl units Cap, 15491 International_Unit= 1 cap(s), Oral, q7day furosemide 40 [...] BID With When Contact Information Bienvenido Dharmesh [address] [place], [place] [address] (1) Additional Instructions: Call for followup appointment [...] ultimately benefit being only slightly on the print line tailer side 5. Coronary artery disease (I25.10: [...] 9. Pulmonary hypertension (I27.20: Pulmonary hypertension, unspecified) [place] secondary to above 10. Hypertension (I10: Essential [...] recent hospitalization has been titrated at the [facility]. He was recently placed on Xanax, discontinue that at this time. Awaiting verification of meds from the [facility] 15. Encounter for deep vein [...] patient's RN it was advised that the snf was planning on sending a copy of [...] Tests Pending * Legionella Antigen Urine 12/18/22 [facility]07-30-2023 NoteCRM entered the room to discuss dc planning. PCP, DME and insurance discussed. Patient is alert andinvolved in plan of care. Contact information given and whiteboard updated. Pt will dc to [facility] room 17 today. CRM to follow.Blanch[facility] Valley Health SystemComment on above:Result Comment: Electronically Signed By: Natalie Grant\Date and Time Signed: 12/20/22 11:52 [id number] AnabellaSaint Luke InstituteComment on above: Result Comment: Electronically Signed By: Leslie MCKINNEY MD.candice\Date and Time Signed: 12/20/22 10:[id number] Hospital Discharge instructions Patient Education 12/20/2022 09:48:09 [...] a long-term care facility, such as a snf. Having your kidneys filtered through hemodialysis in [...] hard liquor (44 mL). General instructions Take yone-ynx-fqoltwm and prescription medicines as told by your [...] are not available, use an alcohol-based hand sugar coating hand. ?Make sure your health care providers wash [...] and water or with alcohol- based hand sugar coating hand before and after caring for sick people. [...] bacteria common in health care settings. Take dxuc-tgx-cuvnscp and prescription medicines as told by your [...] provider. Document Revised: 05/31/2022 Document Reviewed: 05/31/2022 [employer] Patient Education 2022 Anhelo. Follow Up Care 12/17/2022 23:50:19 With:Bienvenido Barroso Address: [address] [place] [address]- Business (1) When: Unknown Comments:Call for followup appointment [facility]07-28-2023 [facility] HospitalComment on above:Result Comment: Electronically Signed By: Maycol CAGLE DO\.br\Date and Time Signed: 12/18/22 06:27 [id number] NoteBlanchard Valley Health SystemComment on above:Result Comment: Electronically Signed By: Lizeth Cedeno MD\.br\Date and Time Signed: 12/02/22 12:28 [id number] Evaluation + Plan noteExtracted from: Title:Discharge Note Author:Lizeth Cedeno MD ate:12/02/22 Stable Discharge To, Anticipated II - Alf Unit Discharged to - Home with family care Transported by, Anticipated - Family Discharge Diet(s): Other: Limit fluids to 1800 ml/day (12/02/22 12:23:00) Prescriptions aspirin 81 mg Oral EC Tab, 81 mg= 1 tab(s), Oral, Daily ergocalciferol 50,000 intl units Cap, 11064 International_Unit= 1 cap(s), Oral, q7day furosemide 40 [...] [facility] [address] [place] [address]- Business (1) Additional Instructions: HFpEF Dave Dickeydict [address] [place] [address]- Business (1) Additional Instructions: Cog impariment, Alzhiemer's Bienvenido Barroso In [address] [place] [address]- Business (1) Additional Instructions: Extracted from: Title:UPDATE [...] of CAD and previous coronary interventions in [place] with no indication of recurrent CAD, would [...] as able, pulm avery. -check echo Ordered: [facility] Care/Day High 50 Minutes 27875 2. Acute on chronic diastolic heart failure (I50.33: Acute on chronic diastolic (congestive) heart failure) c/w spironolactone and lasix IV 40mg qd -strict I/Os and daily weight - last echo was done 2014 with EF of 50%. will recheck this visit Ordered: [facility] Care/Day High 50 Minutes 13043 3. COPD without exacerbation (J44.9: Chronic obstructive pulmonary disease, unspecified) Ordered: [facility] Care/Day High 50 Minutes 96319 4. Weakness (R53.1: Weakness) -pt/ot Ordered: [facility] Care/Day High 50 Minutes 32102 5. Sinus bradycardia (R00.1: Bradycardia, unspecified) baseline. last EKG similar. -pt had decreased HR overnight so BB was held. -continue to monitor on tele Ordered: [facility] Care/Day High 50 Minutes 13604 6. Coronary artery disease (I25.10: Atherosclerotic heart disease of [place] coronary artery without angina pectoris) -c/w ASA Ordered: [facility] Care/Day High 50 Minutes 23113 7. Obstructive sleep apnea (G47.33: Obstructive sleep apnea (adult) (pediatric)) -CPAP qHS Ordered: [facility] Care/Day High 50 Minutes 68767 8. Pulmonary hypertension (I27.20: Pulmonary hypertension, unspecified) c/w spironolactone 50mg -lasix 40 mg iv qd -strict I/Os daily weights -check echo Ordered: [facility] Care/Day High 50 Minutes 72043 9. Abdominal pain (R10.9: Unspecified abdominal pain) resolved no complaints this morning Ordered: [facility] Care/Day High 50 Minutes 91335 10. Hypertension (I10: Essential (primary) hypertension) c/w spironolactone Ordered: [facility] Care/Day High 50 Minutes 64941 11. Diabetes (E11.9: Type 2 diabetes mellitus without complications) BGT qACHS -c/w glimepiride Ordered: [facility] Care/Day High 50 Minutes 62905 12. Hyperlipidemia (E78.5: Hyperlipidemia, unspecified) -hold statin due to elevated CK Ordered: [facility] Care/Day High 50 Minutes 91921 13. Chronic anemia (D64.9: Anemia, unspecified) monitor Ordered: [facility] Care/Day High 50 Minutes 63795 14. BPH (benign prostatic hyperplasia) (N40.0: Benign prostatic hyperplasia without lower urinary tract symptoms) c/w tamsulosin Ordered: [facility] Care/Day High 50 Minutes 18248 15. Dementia (F03.90: Unspecified dementia, unspecified severity, without behavioral disturbance, psychotic disturbance, mood disturbance, and anxiety) -c/w seroquel 25mg qHS Ordered: [facility] Care/Day High 50 Minutes 82717 16. Encounter for deep vein thrombosis (DVT) prophylaxis (Z29.9: Encounter for prophylactic measures, unspecified) Ordered: [facility] Care/Day High 50 Minutes 89500 17. Elevated CK (R74.8: Abnormal levels of other serum enzymes) -CK 1000 this morning. will monitor and hold statin - will not give fluids due to current diuresis Ordered: [facility] Care/Day High 50 Minutes 42316 COPD with acute exacerbation (J44.1: Chronic obstructive [...] Scheduled Provider:Donta NOONAN MD Location:Extended Care Appointment Type:[facility]07-10-2023 NoteOT [facility] six clicks score 15/24 = SNF. Patient requires assist w/ all transfers and self care at this time. Inpatient OT services to follow daily to progress w/ functional skills.[facility]07-09-2023 NotePT Evaluation completed with an AMPAC score of 16/24. Pt requires Min A for bed mobility and min/Mod A to stand. Pt was able to take two sidesteps. Will follow daily, but [facility]Result Comment: Electronically Signed By: Maycol CAGLE DO\.br\Date and Time Signed: 11/29/22 01:33 [id number] Hospital Discharge instructions Follow Up Care 11/28/2022 17:10:04 With:Joanie Jiménez Address: [facility] [address], [address] [place] [address]- Business (1) When: Unknown Comments:HFpEF With:Dave Cruz Address: [address] [place] [address]- Business (1) When: Unknown Comments:Cog impariment, [employer] With:Bienvenido Barroso Address: [address] [place] [address] Business (1) When: Unknown [facility]05-20-2023 [facility]:Result Comment: Electronically Signed By: Adeline COLEMAN\.br\Date and Time Signed: 10/10/22 17:53 EDT\.br\Electronically Co- Signed By: Ganesh Minaya MD\.br\Date and Time Co-Signed: 10/10/22 18:51 EDT 09-27-2022 [facility]:Result Comment: Electronically Signed By: Adeline COLEMAN\.br\Date and Time Signed: 09/26/22 21:20 EDT\.br\Electronically Co-Signed By: Ganesh Minaya MD\.br\Date and Time Co-Signed: 09/27/22 08:00 [id number] History of Present illness Narrative* Marcelino Echavarria MD - 09/07/2022 1:12 AM EDT Images from the original note were not included. EMERGENCY TRIAGE, TREAT AND TRANSPORT (ET3) DOCUMENTATION OF TELEHEALTH VISIT Date / Time: 09/06/20222146 Name: Clyde Humphrey : 1945 SSN: [id number] EMS Agency: [facility] [x] Verbal consent obtained [] [...] note No data available for this section [facility], initial encounter- [facility] Anxiety- Primary Anxiety state, unspecified [facility] No data available for this section [facility] No data available for this section [facility] Summary Purpose Family History No [...] section and content) DATE CREATED AUTHOR 06/26/2021 [facility] dical Specialist DATE CREATED AUTHOR AUTHOR'S ORGANIZ ATION 12/05/2022 [facility] DATE CREATED AUTHOR AUTHOR'S ORGANIZ ATION 03/26/2023 [facility] DATE CREATED AUTHOR AUTHOR'S ORGANIZ ATION 05/04/2023 [facility] DATE CREATED AUTHOR AUTHOR'S ORGANIZ ATION 01/10/2024 [facility] DATE CREATED AUTHOR AUTHOR'S ORGANIZ ATION 01/18/2024 [facility] DATE CREATED AUTHOR AUTHOR'S ORGANIZ ATION 03/29/2024 [facility] Reason for Visit (unrecogniz ed section and content) Reason Comments Fall Patient Care team informatio n (unrecognized section and content) Dealer Analyst Relationship Specialty Start Date End Date Bienvenido Barroso MD [address] [place] [address] PCP - [facility] 07/22/22 Dealer Analyst Relationship Specialty Start Date End Date Bienvenido Barroso MD [address] [place] [address] PCP - [facility] 07/22/22 Dealer Analyst Relationship Specialty Start Date End Date Bienvenido Barroso MD [address] [place] [address] PCP - [facility] 07/22/22 FOR RECORDS PERTAINING [...] BE BASED ON THE PRIMARY CLINICAL RECORDS. [employer] [facility]. provides no warranty or guarantee of the accuracy or completeness of information in this document.
[2024-04-08 01:36] VITALS: BP 122/79
== END 2024-04-08 01:36 | disposition home or self-care (01) ==
PROVIDERS: Emergency Provider Emergency Medicine; PCP Family Medicine
DX: S00.83XA Contusion of other part of head, initial encounter (principal); W19.XXXA Unspecified fall, initial encounter; F03.90 Unspecified dementia, unspecified severity, without behavioral disturbance, psychotic disturbance, mood disturbance, and anxiety; Z87.891 Personal history of nicotine dependence
CPT/HCPCS: 70450; 72125; 99284